=== PATIENT | female | born 1960 | race Caucasian/White ===

== ENCOUNTER 2019-11-11 06:09 | Outpatient (RCR) | payer BC, OTHER ==
[~2019-11-11] VITALS: Ht 160 cm; Wt 170.0 kg
[~2019-11-11 06:09] MED LIST: ALPR0.25 PO; AMLO5TAB4 PO; CALC600T12 PO; CHOL10002 PO; DULO60CA59 PO; HYDR-4342 PO; METO5TAB75 PO; MODA200T39 PO; ONDN4T PO; RT-ALBUINH IH; TELM80TA8 PO
== END 2019-11-11 15:00 | disposition home or self-care (01) ==
LOC: PREOP 06:09
PROVIDERS: ATTEND Surgery
DX: Z01.812 Encounter for preprocedural laboratory examination (principal); K82.8 Other specified diseases of gallbladder; Z20.828 Contact with and (suspected) exposure to other viral communicable diseases
CPT/HCPCS: 87635

== ENCOUNTER 2019-11-13 09:19 | Day surgery (SDC) | payer BC, OTHER ==
[~2019-11-13] VITALS: Ht 160 cm; Wt 125.9 kg
[2019-11-13] VITALS (9 sets, daily range): BP systolic 93–192; BP diastolic 45–100
--- NOTE | 2019-11-13 09:29 | Discharge Inst-Surgical ---
D/C Lap Instructions-KIDO Reconcile Patient Problems Problems Reviewed?: Yes New, Converted, or Re-Newed RX: RX on Chart Follow Up Appt in 2 weeks Activity as tolerated No driving for 24 hours No driving while on pain medications Incentive Spirometry use every 2 hours while awake Regular Diet Symptoms to Report: Fever over 101 degree F, Nausea/Vomiting Infection Signs and Symptoms to report: Increased redness, Foul odor of wound, Increased drainage Bathing instructions: May shower Operative Area Clean/Dry; Keep incision clean/dry If any problems/questions: Contact your physician or go to Emergency Room JOSE J SCHMIDT APRN Nov 13, 2019 09:29
[2019-11-13] MEDS ORDERED: HYDROcodone/APAP 5 MG/325 MG (LORTAB) TAB PO ONE (09:30)
[2019-11-13] MEDS ORDERED: CATHETER FLUSH 10 ML SYR IV PRN (09:30)
[2019-11-13] MEDS ORDERED: morphine INJ 10 MG/ML 1ML (SYR OR VIAL) IVP PRN (09:30)
[2019-11-13] MEDS ORDERED: ACETAMINOPHEN 325 MG TABLET PO PRN (09:30)
[2019-11-13] MEDS ORDERED: HYDR-4227 PO (09:30)
[2019-11-13] MEDS ORDERED: ceFAZolin 2 GM IV Premixed 50 ML IV ONE (09:30)
[2019-11-13] MEDS ORDERED: ONDANSETRON 4 MG/2 ML (SDV) Z0FRAN IVP PRN ×2 (09:30→12:15)
--- NOTE | 2019-11-13 09:31 | Progress Note-Pre Operative ---
Pre-Operative Progress Note H&P Reviewed The H&P was reviewed, patient examined and no changes noted. Date Seen by Provider: Nov 13, 2019 Time Seen by Provider: 09:30 Date H&P Reviewed: Nov 13, 2019 Time H&P Reviewed: 09:25 Pre-Operative Diagnosis: Symptomatic Biliary Dyskinesia JOSE J SCHMIDT APRN Nov 13, 2019 09:31
[2019-11-13] MEDS ORDERED: BUP/EPI 0.5% 1:200,000 (SENSORCAINE) 30 ML VIAL ONE (09:32)
[2019-11-13] MEDS ORDERED: fentaNYL INJECTION 100 MCG/2 ML AMP ONE (09:39)
[2019-11-13] MEDS: LACTATED RINGERS 1,000 ML IV PRN ×2 (09:40→10:30)
--- OUTSIDE RECORDS SUMMARY | 2019-11-13 09:40 | XMS REPORT | Clinical Summary ---
Author Author Admin, Enrique Adamson Organization [employer] Address Unknown Phone Unavailable Allergies, Adverse Reactions, Alerts Allergy Name Reaction Description Start Date Severity Status Pr ovider BYETTA 10 MCG PEN Critical Active Lilia Clemons RN METAMUCIL Critical Active Bertrand Patel DO BACTRIM Critical Active Bertrand Patel DO Conditions or Problems Problem Name Problem Code Onset Date Status Entry Date Provider Comment Standard Description Annotate HEALTH SCREENING V70.0 Resolved Yoli Mercado MD PhD Routine general medical examination at a health care facility HYPERTENSION 401.9 Active Bertrand Patel DO U nspecified essential hypertension SCABIES 133.0 Resolved Yoli Mercado MD PhD Scabies FH DIABETES V18.0 Inactive Yoli Mercado MD PhD Family history of diabetes mellitus SINUSITIS, FRONTAL, ACUTE 461.1 Resolved Yoli Mercado MD PhD Acute frontal sinusitis COUGH 786.2 Resolved Yoli Mercado MD PhD Cough EDEMA LEG 782.3 Resolved Nitza Mullins Scribe Edema SHORTNESS OF BREATH 786.05 Resolved Yoli Mercado MD PhD Shortness of breath RISK OF SLEEP APNEA V12.59 Active Adolfo OSORIO Other personal history of diseases of circulatory system RIB PAIN, RIGHT SIDED 786.50 Resolved Yoli Mercado MD PhD Unspecified chest pain KNEE PAIN, RIGHT 719.46 Resolved Nitza Mullins Scribe Pain in joint involving lower leg Knee pain, left 719.46 Resolved Nitza zaragoza Pain in joint involving lower leg Diabetes, Type 2 250.00 Active Bertrand Patel DO Diabetes mellitus without mention of complication, type II or unspecified type, not stated as uncontrolled Morbid obesity 278.01 Inactive Bertrand Patel DO Morbid obesity Morbid obesity due to excess calories 278.00 Active Lina Maher APRN-C Obesity, unspecified Hyperlipidemia 272.4 Active Bertrand Patel DO Other and unspecified hyperlipidemia Pharyngitis-Acute 462 Inactive Bertrand Patel DO Acute pharyngitis Polyuria 788.42 Resolved Yoli Mercado MD PhD Polyuria Cellulitis, leg, right 682.6 Resolved Colin Deluna MD Cellulitis and abscess of leg, except foot Foreign body, ear 931 Resolved Yoli Mercado MD PhD Foreign body in ear Obstructive sleep apnea 327.23 Active Bertrand Redmond DO Obstructive sleep apnea (adult) (pediatric) Fatigue 780.79 Resolved Ike Deluna MD Other malaise and fatigue Headache 784.0 Resolved Nitza Mullins Scribe Headache Cough 786.2 Resolved Nitza Liuibe Cough SINUSITIS, ACUTE 461.9 Resolved Ike Deluna MD Acute sinusitis, unspecified Fatigue 780.79 Resolved Nitza Patel Other malaise and fatigue Bronchitis acute with bronchospasm 466.0 Resolved 2 Nitza Patel Acute bronchitis Bronchitis acute with bronchospasm 466.0 Resolved Bertrand Patel DO Acute bronchitis Narcolepsy 347.00 Active Bertrand Patel DO Narcolepsy without cataplexy Animal bite 919.8 Resolved Nitza Harpreet Scrib e Other and unspecified superficial injury of other, multiple, and unspecified sites, without mention of infection Mycoplasma infection 041.81 Resolved Abiel ti Harpreet Scrcatye Mycoplasma infection in cond itions classified elsewhere and of unspecified site Amenorrhea, secondary 626.0 Resolved Kri sti Mullins Scribe Absence of menstruation Depression 311 Active Bertrand Patel DO Depressive disorder, not elsewhere classified Left maxillary sinusitis 473.0 Resolved Bertrand Patel DO Chronic maxillary sinusitis Body Mass Index 50.0-59.9 Adult Refinement 2017 Bertrand Patel DO Body Mass Index 50.0-59.9, adult BMI 60-69.9 Active Bertrand Patel DO Body Mass Index 50.0-59.9, adult Wellness exam V70.0 Active Bertrand Patel DO Routine general medical examination at a health care facility URI - viral 465.9 Resolved Lina Mahre BASTING 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-C Acute upper respiratory infections of unspecified site Pharyngitis acute 462 Resolved Lina Maher BASTING 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 -C Acute pharyngitis Abdominal pain, upper 789.09 Active Lina Maher A PRN-C Abdominal pain, other specified site; multiple sites Flank pain, left 789.09 Active Lina Maher BASTING 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-C Abdominal pain, other specified site; multiple sites Morbid obesity due to excess calories 278.00 Resolved Lina Maher BASTING 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-C Obesity, unspecified Other abnormal findings in urine Active 202 Lina Maher BASTING 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-C Generalized colicky abdominal pain 789.07 Active 2 Lina Maher BASTING 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-C Abdominal pain, generalized Nausea 787.02 Active Lina Maher APRN-C Nausea alone Abnormal abdominal imaging 793.6 Active E benjamín Gunnar BARAJAS-C Nonspecific (abnormal) findings on radio logical and other examination of abdominal area, including retroperitoneum Epigastric pain 789.06 Active Lina Maher APRN-C Abdominal pain, epigastric HEALTH SCREENING ICD-V70.0 Inactive Yoli sabillon MD PhD SCABIES ICD-133.0 Inactive Yoli Mercado MD PhD 201 07/14/20 FH DIABETES ICD-V18.0 Inactive Yoli Mercado MD PhD 20 14/02/29 SINUSITIS, FRONTAL, ACUTE ICD-461.1 Inactive Yoli Mercado MD PhD COUGH ICD-786.2 Inactive Yoli Mercado MD PhD 201 09/09/28 EDEMA LEG ICD-782.3 Inactive Adele Feldman MANAGER RECRUITMENT 201 01/01/02 SHORTNESS OF BREATH ICD-786.05 Inactive Yoli Mercado MD PhD RIB PAIN, RIGHT SIDED ICD-786.50 Inactive Yoli Mercado MD PhD KNEE PAIN, RIGHT ICD-719.46 Inactive Adele Esqueda ghn MANAGER RECRUITMENT Knee pain, left ICD-719.46 Inactive Adele Holden hn MANAGER RECRUITMENT Pharyngitis-Acute ICD-462 Inactive Bertrand Redmond DO Polyuria ICD-788.42 Inactive Yoli Mercado MD P hD Cellulitis, leg, right ICD-682.6 Inactive Yuki Deluna MD Foreign body, ear ICD-931 Inactive Yoli salazar MD PhD Fatigue ICD-780.79 Inactive Ike Deluna MD 201 12/01/06 Headache ICD-784.0 Inactive Adele Feldman MANAGER RECRUITMENT 2017 Cough ICD-786.2 Inactive Adele Feldman MANAGER RECRUITMENT 06/04 SINUSITIS, ACUTE ICD-461.9 Inactive Ike lange MD Fatigue ICD-780.79 Inactive Adele Feldman MANAGER RECRUITMENT 2017 Bronchitis acute with bronchospasm ICD-466.0 I nactive Bertrand Patel DO Animal bite ICD-919.8 Inactive Adele Feldman LP N Mycoplasma infection ICD-041.81 Inactive Anit a Feldman MANAGER RECRUITMENT Amenorrhea, secondary ICD-626.0 Inactive Ani ta Feldman MANAGER RECRUITMENT Left maxillary sinusitis ICD-473.0 Inactive Bertrand Patel DO URI - viral ICD-465.9 Inactive Lina Maher BASTING 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 -C Pharyngitis acute ICD-462 Inactive Lina elliott BASTING 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-C Morbid obesity due to excess calories ICD-278.00 Inactive Carla ALBERTO Medication List Medication Instructions Start Date Stop Date Generic Name NDC Status Provider Patient Instruction REGLAN 10 MG ORAL TABLET 0.5-1 tab po TID PRN nausea METOCLOPRAMIDE HCL 92668703745 Active Marissa Parnell MA Active ZOFRAN 4 MG ORAL TABLET 1 tablet by mouth every 6 hour PRN nausea 2 ONDANSETRON HCL 22027113751 Active Adriana Davalos RN Active CYCLOBENZAPRINE HCL 10 MG ORAL TABLET 1 tablet by mout h three times a day as needed for muscle spasm CYCLOBENZAPRINE HCL 69400077012 Ton BAZZI Active HYDROCODONE-ACETAMINOPHEN 7.5-325 MG TABS 1 TAB EVERY 6 HOUR S PRN FOR PAIN HYDROCODONE-ACETAMINOPHEN 47193231175 Active Bretrand Patel DO Active TELMISARTAN 80 MG TABS 1 TABLET PO DAILY FOR BLOOD PRESSURE TELMISARTAN 66349158617 Active Adriana Davalos RN Active MODAFINIL 200 MG TABS 1/2 TABLET PO IN THE AM AND 1/2 TABLET AT NOON MODAFINIL 37188550775 Active Adriana Davalos RN Activ e DULOXETINE HCL 60 MG CPEP 1 CAPSULE PO DAILY DU LOXETINE HCL 51662540069 Active Adriana Davalos RN Active AMLODIPINE 5MG 1 TABLET PO DAILY FOR BLOOD PRESSURE AMLODIPINE BESYLATE 21086511700 Active Adriana Davalos RN Active ALPRAZOLAM 0.5 MG TABS TAKE 1 TABLET BY MOUTH THREE TIMES DAILY 201 02/10/05 ALPRAZOLAM 61354256304 Active Adriana Davalos RN Active SUDAFED 12 HOUR 120 MG ORAL TABLET EXTENDED RELEASE 12 HOUR 1 pill twice daily if for congestion PSEUDOEPHEDRINE HCL 62977272676 Active Silvia Vazquez APRN Active CHERATUSSIN AC 100-10 MG/5ML ORAL SYRUP 5ml po q6hr PRN Cough 20 21/03/15 GUAIFENESIN-CODEINE 31898864297 No Longer Active Silvia Vazquez APRN Active FLUTICASONE PROPIONATE 50 MCG/ACT NASAL SUSPENSION 2 s prays per nostril daily for 2 weeks, then 1 spray each nostril PRN FLUTI CASONE PROPIONATE 81084477687 Active Silvia Vazquez APRN Active EVENING PRIMROSE OIL 1000 MG ORAL CAPSULE 1 capsule once daily EVENING PRIMROSE OIL 59536967924 Active Bertrand Patel DO Active LEVAQUIN 500 MG ORAL TABLET 1 tablet by mouth daily 21/06/28 LEVOFLOXACIN 07633037411 No Longer Active Bertrand Patel DO Active PREDNISONE 20 MG ORAL TABLET Take 3 tabs for 3 days, t hen 2 tabs for 3 days, then 1 tab for 3 days PREDNISONE 15822615376 No Rainer fatou Active Galilea Sell BASTING 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 Active DOXYCYCLINE HYCLATE 100 MG ORAL CAPSULE 1 cap by mouth twice jong ly DOXYCYCLINE HYCLATE 34242377176 No Longer Active Galilea Sell BASTING 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 Active ADDERALL 10 MG ORAL TABLET 1 tab twice daily 2 AMPHETAMINE-DEXTROAMPHETAMINE 71962391266 No Longer Active Nitza Phi llips Scribe Active ZITHROMAX Z-MARTIN 250 MG ORAL TABLET 2 today and then 1 daily for 4 days AZITHROMYCIN 31803901376 No Longer Active Nitza Osman lips Scribe Active BENZONATATE 200 MG ORAL CAPSULE 1 three times a day as neede d for cough BENZONATATE 91359020420 No Longer Active Nitza Osman lips Scribe Active VITAMIN D3 22755 UNIT ORAL CAPSULE 1 pill Week x 4 mo nths for vitamin D deficiency/osteoporosis CHOLECALCIFEROL 71208135448 N o Longer Active Layla Garcia Active BACTROBAN 2 % EXTERNAL CREAM Apply to affected area BID for up to 10 days MUPIROCIN CALCIUM 39840074065 No Longer Active Ike Deluna MD Active CIPRO 500 MG ORAL TABLET 1 tablet by mouth twice daily CIPROFLOXACIN HCL 59052657246 No Longer Active Adriana Bender LPN Active AUGMENTIN 875-125 MG ORAL TABLET 1 po BID x 10 days 18/04/06 AMOXICILLIN-POT CLAVULANATE 58060259535 No Longer Active Adriana Bender LPN Active CYCLOBENZAPRINE HCL 10 MG ORAL TABLET Take 1 tab TID PRN for mus triston pain CYCLOBENZAPRINE HCL 54915337559 No Longer Active Bertrand Patel DO Active TESSALON PERLES 100 MG ORAL CAPSULE 1 tablet by mouth 3 times da juan pablo BENZONATATE 48992090679 No Longer Active Bertrand Patel DO Ac tive NEBULIZER use as directed NEBULIZERS 36709491221 No Longer Active Bertrand Patel DO Active ALBUTEROL SULFATE (2.5 MG/3ML) 0.083% INHALATION NEBUL IZATION SOLUTION one vial per nebulizer every 4-6 hours as needed ALBUTERO L SULFATE 85333443226 No Longer Active Bertrand Patel DO Active SYMBICORT 160-4.5 MCG/ACT INHALATION AEROSOL 2 puffs BID 9 BUDESONIDE-FORMOTEROL FUMARATE 81832196150 No Longer Active Bertrand Patel DO Active PREDNISONE 20 MG ORAL TABLET take 3 tabs daily for 3 d ays, 2 tabs daily for 3 days, 1 tab daily for 3 days, 1/2 tab daily for 3 days 08/02 PREDNISONE 90434516309 No Longer Active Silvia Vazquez APRN Active AZITHROMYCIN 250 MG ORAL TABLET Take 2 tabs po today then 1 tab po daily AZITHROMYCIN 55837664325 No Longer Active Silvia Vazquez APRN Active AUGMENTIN 875-125 MG ORAL TABLET 1 po BID x 10 days 20 19/07/13 AMOXICILLIN-POT CLAVULANATE 56365595477 No Longer Active Adriana Bender LPN Active CHEWABLE CALCIUM 500-200-40 MG-UNT-MCG ORAL TABLET CHEWABLE 1 chew tab bid CALCIUM-VITAMIN D-VITAMIN K 68791393601 Active Silvia gagnon BASTING 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 Active EQ COMPLETE MULTIVIT ADULT 50+ ORAL TABLET 1 tab po bid MULTIPLE VITAMINS-MINERALS 86706899801 Active Silvia Vazquez APRN Active LORTAB 7.5-500 MG ORAL TABLET take one po Q6 hours 201 09/12/01 HYDROCODONE-ACETAMINOPHEN 00851286226 No Longer Active Nirmal Robbins RN Active [facility] MELATONIN 5-10 MG ORAL TABLET EXTENDED RELEASE Jair e one by mouth daily at bedtime MELATONIN-PYRIDOXINE 09284522330 No Longer Acti ve Bertrand Patel DO Active VITAMIN E 200 UNIT ORAL CAPSULE 1 cap po qd VITAM IN E 83587061495 No Longer Active Bertrand Patel DO Active B-12 1000 MCG ORAL CAPSULE 1 tab daily CYANOCOB ALAMIN 10081246725 No Longer Active Bertrand Patel DO Active METFORMIN HCL 500 MG ORAL TABLET 1 bid METFOR MIN HCL 05765525042 No Longer Active Bertrand Patel DO Active FUROSEMIDE 20 MG ORAL TABLET 1 pill by mouth daily if needed for edema FUROSEMIDE 06592027330 No Longer Active Bertrand Patel DO Active PRAVASTATIN SODIUM 20 MG ORAL TABLET 1 tablet by mouth daily at bedtime PRAVASTATIN SODIUM 02564992565 No Longer Active Bertrand Patel DO Active AUGMENTIN 875-125 MG ORAL TABLET 1 pill by mouth twice daily 201 09/10/00 AMOXICILLIN-POT CLAVULANATE 31436515440 No Longer Active Yoli Mercado MD PhD Active LEVAQUIN 500 MG ORAL TABLET 1 pill by mouth daily 2013 LEVOFLOXACIN 75996334739 No Longer Active Yoli Mercado MD PhD Acti ve MICARDIS 80 MG ORAL TABLET 1 tablet daily for blood pressure 07/30 TELMISARTAN 07679276944 Active Adriana Davalos RN Active MICARDIS HCT 80-12.5 MG ORAL TABLET 1 qd TELMISARTAN-HCTZ 29826813695 No Longer Active Bertrand Patel DO Active CINNAMON ALPHA LIPOIC AC CMPLX CAPSULE by mouth twice a day in AM by mouth twice a day in PM ALPHA LIPOIC [id number] CA PS 93402142314 No Longer Active Bertrand Patel DO Active AZITHROMYCIN 500 MG INTRAVENOUS SOLUTION RECONSTITUTED 1 po q da y AZITHROMYCIN 49905263232 No Longer Active Bertrand Patel DO A ctive CYMBALTA 30 MG ORAL CAPSULE DELAYED RELEASE PARTICLES 1 cap by mouth daily DULOXETINE HCL 49662249618 No Longer Active Bertrand marquez DO Active CYMBALTA 60 MG ORAL CAPSULE DELAYED RELEASE PARTICLES 1 cap by mouth daily DULOXETINE HCL 49861914678 Active Adriana Davalos RN Active WELLBUTRIN 75 MG ORAL TABLET 2 times daily BUPR OPION HCL 56463816616 No Longer Active Bertrand Patel DO Active PROAIR HFA 108 (90 Base) MCG/ACT INHALATION AEROSOL SO LUTION take one to two puffs po Q4-6 hour prn cough and shortness of breath ALBUTEROL SULFATE 18731672434 Active Bertrand Patel DO Active AZITHROMYCIN 250 MG ORAL TABLET take 2 po today then take 1 po days 2-5 AZITHROMYCIN 98503823858 No Longer Active Adolfo OSORIO Active PERMETHRIN 5 % EXTERNAL CREAM apply neck to toes tonig ht and then rinse off in morning. repeat at 7 days PERMETHRIN 84415398587 No Longer Active Adolfo OSORIO Active AMOXICILLIN 500 MG ORAL CAPSULE 2 po BID x 10 days 201 07/15/00 AMOXICILLIN 00434764226 No Longer Active Yoli Mercado MD PhD Acti ve INSUPEN ULTRAFIN 31G X 6 MM USE DIRECTED INSULIN PEN NEEDLE 56679674076 No Longer Active Bertrand Patel DO Active TRANSDERM-SCOP (1.5 MG) 1 MG/3DAYS TRANSDERMAL PATCH 7 2 HOUR 1 patch applied behind ear q 3 day SCOPOLAMINE BASE 67760565850 No Lo nger Active Bertrand Patel DO Active MACRODANTIN 100 MG ORAL CAPSULE one p.o. b.i.d. x2 weeks NITROFURANTOIN MACROCRYSTAL 80715731301 No Longer Active Bertrand Patel DO Active MACRODANTIN 100 MG ORAL CAPSULE one p.o. b.i.d. x2 weeks MACRODANTIN 100 MG ORAL CAPSULE 0461005 NITROFURANTOIN MACROCRYSTAL Inactive TRANSDERM-SCOP (1.5 MG) 1 MG/3DAYS TRANSDERMAL PATCH 7 2 HOUR 1 patch applied behind ear q 3 day TRANSDERM-SCOP (1.5 MG) 1 MG/3DAYS TRANSDERMAL PATCH 72 HOUR SCOPOLAMINE BASE Inactive INSUPEN ULTRAFIN 31G X 6 MM USE DIRECTED INSUPEN ULTRAFIN 31G X 6 MM INSULIN PEN NEEDLE Inactive PERMETHRIN 5 % EXTERNAL CREAM apply neck to toes tonig ht and then rinse off in morning. repeat at 7 days PERMETHRIN 5 % EXTER NAL CREAM 139786 PERMETHRIN Inactive WELLBUTRIN 75 MG ORAL TABLET 2 times daily WELLBUTRIN 75 MG ORAL TABLET BUPROPION HCL Inactive CYMBALTA 30 MG ORAL CAPSULE DELAYED RELEASE PARTICLES 1 cap by mouth daily CYMBALTA 30 MG ORAL CAPSULE DELAYED RELE ASE PARTICLES 770879 DULOXETINE HCL Inactive AZITHROMYCIN 500 MG INTRAVENOUS SOLUTION RECONSTITUTED 1 po q da y AZITHROMYCIN 500 MG INTRAVENOUS SOLUTION RECONSTITUTED 93033 851456 AZITHROMYCIN Inactive CINNAMON ALPHA LIPOIC AC CMPLX CAPSULE by mouth twice a day in AM by mouth twice a day in PM CINNAMON ALPHA LIPOIC AC CMPLX CAPSULE ALPHA LIPOIC [id number] CAPS Inactive MICARDIS HCT 80-12.5 MG ORAL TABLET 1 qd 07/30 MICARDIS HCT 80-12.5 MG ORAL TABLET 045889 TELMISARTAN-HCTZ Inactive PRAVASTATIN SODIUM 20 MG ORAL TABLET 1 tablet by mouth daily at bedtime PRAVASTATIN SODIUM 20 MG ORAL TABLET 197706 PRAVASTATIN SODIUM Inactive FUROSEMIDE 20 MG ORAL TABLET 1 pill by mouth daily if needed for edema FUROSEMIDE 20 MG ORAL TABLET 302855 FUROSEMIDE Inactive METFORMIN HCL 500 MG ORAL TABLET 1 bid METFORMIN HCL 500 MG ORAL TABLET 041242 METFORMIN HCL Inactive B-12 1000 MCG ORAL CAPSULE 1 tab daily B -12 1000 MCG ORAL CAPSULE CYANOCOBALAMIN Inactive VITAMIN E 200 UNIT ORAL CAPSULE 1 cap po qd 1 VITAMIN E 200 UNIT ORAL CAPSULE 2807802 VITAMIN E Inactive [facility] MELATONIN 5-10 MG ORAL TABLET EXTENDED RELEASE Jair e one by mouth daily at bedtime [facility] MELATONIN 5-10 M G ORAL TABLET EXTENDED RELEASE MELATONIN-PYRIDOXINE Inactive LORTAB 7.5-500 MG ORAL TABLET take one po Q6 hours 201 09/12/01 LORTAB 7.5-500 MG ORAL TABLET HYDROCODONE-ACETAMINOPHEN Inactive AZITHROMYCIN 250 MG ORAL TABLET Take 2 tabs po today then 1 tab po daily AZITHROMYCIN 250 MG ORAL TABLET 208443 AZITHROMY BERNARDO Inactive SYMBICORT 160-4.5 MCG/ACT INHALATION AEROSOL 2 puffs BID 9 SYMBICORT 160-4.5 MCG/ACT INHALATION AEROSOL 9756438 BUDESONID E-FORMOTEROL FUMARATE Inactive ALBUTEROL SULFATE (2.5 MG/3ML) 0.083% INHALATION NEBUL IZATION SOLUTION one vial per nebulizer every 4-6 hours as needed ALBUTEROL SULFATE (2.5 MG/3ML) 0.083% INHALATION NEBULIZATION SOLUTION 444295 ALBUTER OL SULFATE Inactive NEBULIZER use as directed NEBULIZER NEBULI ZERS Inactive TESSALON PERLES 100 MG ORAL CAPSULE 1 tablet by mouth 3 times da juan pablo TESSALON PERLES 100 MG ORAL CAPSULE 237397 BENZONATATE Inactive CYCLOBENZAPRINE HCL 10 MG ORAL TABLET Take 1 tab TID PRN for mus triston pain CYCLOBENZAPRINE HCL 10 MG ORAL TABLET 249669 CYCLOBENZA ANUJA HCL Inactive AUGMENTIN 875-125 MG ORAL TABLET 1 po BID x 10 days 20 18/04/06 AUGMENTIN 875-125 MG ORAL TABLET AMOXICILLIN-POT CLAVULANATE Inactive BACTROBAN 2 % EXTERNAL CREAM Apply to affected area BID for up to 10 days BACTROBAN 2 % EXTERNAL CREAM MUPIROCIN CA LCIUM Inactive VITAMIN D3 63275 UNIT ORAL CAPSULE 1 pill Week x 4 mo nths for vitamin D deficiency/osteoporosis VITAMIN D3 08352 UNIT ORAL CAPSULE CHOLECALCIFEROL Inactive BENZONATATE 200 MG ORAL CAPSULE 1 three times a day as neede d for cough BENZONATATE 200 MG ORAL CAPSULE 731903 BENZONATA TE Inactive ZITHROMAX Z-MARTIN 250 MG ORAL TABLET 2 today and then 1 daily for 4 days ZITHROMAX Z-MARTIN 250 MG ORAL TABLET 146960 AZITHR OMYCIN Inactive ADDERALL 10 MG ORAL TABLET 1 tab twice daily 2 ADDERALL 10 MG ORAL TABLET 405850 AMPHETAMINE-DEXTROAMPHETAMINE Inactive LEVAQUIN 500 MG ORAL TABLET 1 tablet by mouth daily 21/06/28 LEVAQUIN 500 MG ORAL TABLET 485436 LEVOFLOXACIN Inactive AMOXICILLIN 500 MG ORAL CAPSULE 2 po BID x 10 days 201 07/15/00 AMOXICILLIN 500 MG ORAL CAPSULE 499742 AMOXICILLIN Inactive AZITHROMYCIN 250 MG ORAL TABLET take 2 po today then take 1 po days 2-5 AZITHROMYCIN 250 MG ORAL TABLET 574637 AZITHROMY BERNARDO Inactive LEVAQUIN 500 MG ORAL TABLET 1 pill by mouth daily 2013 LEVAQUIN 500 MG ORAL TABLET 682062 LEVOFLOXACIN Inactive AUGMENTIN 875-125 MG ORAL TABLET 1 pill by mouth twice daily 201 09/10/00 AUGMENTIN 875-125 MG ORAL TABLET AMOXICILLIN-POT CLAVULANATE Inactive AUGMENTIN 875-125 MG ORAL TABLET 1 po BID x 10 days 20 19/07/13 AUGMENTIN 875-125 MG ORAL TABLET AMOXICILLIN-POT CLAVULANATE Inactive PREDNISONE 20 MG ORAL TABLET take 3 tabs daily for 3 d ays, 2 tabs daily for 3 days, 1 tab daily for 3 days, 1/2 tab daily for 3 days 08/02 PREDNISONE 20 MG ORAL TABLET 942428 PREDNISONE Inactive CIPRO 500 MG ORAL TABLET 1 tablet by mouth twice daily CIPRO 500 MG ORAL TABLET 592122 CIPROFLOXACIN HCL Inactive DOXYCYCLINE HYCLATE 100 MG ORAL CAPSULE 1 cap by mouth twice jong ly DOXYCYCLINE HYCLATE 100 MG ORAL CAPSULE 9208499 DOXYCYCL INE HYCLATE Inactive PREDNISONE 20 MG ORAL TABLET Take 3 tabs for 3 days, t hen 2 tabs for 3 days, then 1 tab for 3 days PREDNISONE 20 MG ORAL TABLET 312 615 PREDNISONE Inactive CHERATUSSIN AC 100-10 MG/5ML ORAL SYRUP 5ml po q6hr PRN Cough 20 21/03/15 CHERATUSSIN AC 100-10 MG/5ML ORAL SYRUP 519422 GUAIFENE SIN-CODEINE Inactive Immunizations Vaccine Administration Date Value Standard Kings cription influenza immunization (Flu Vax) has been administered 08/25 Done according to patient influenza virus vaccine, unspecified for mulation Vital Signs Date Name Value Unit Range Description blood pressure, diastolic, repeated by physician 85 BP [place] blood pressure, diastolic 85 mm[Hg] BP [place] blood pressure, systolic, repeated by physician 148 BP sys blood pressure, systolic 148 mm[Hg] BP sys height E&M 65 [in_us] Bdy height pulse rate 89 /min Heart rate temperature E&M 97.8 [degF] Body temp erature weight E&M 368.31 [lb_av] Weight Measure d blood pressure, diastolic, second observation 88 m m[Hg] BP [place]ick blood pressure, diastolic, repeated by physician 84 BP [place]ick blood pressure, diastolic 84 mm[Hg] BP f[place]ick blood pressure, systolic, second observation 184 mm [Hg] BP sys blood pressure, systolic, repeated by physician 159 BP sys blood pressure, systolic 159 mm[Hg] BP sys pulse rate 88 /min Heart rate temperature E&M 99.7 [degF] Body temp erature weight E&M 363 [lb_av] Weight Measure d Diagnostic Results Date Name Value Unit Range Description Lab Report: CBC W/DIFF - Hematology hemoglobin, blood 11.7 g/dL 12.0-16.0 hematocrit, blood 38.4 % 37.0-47.0 mean corpuscular volume, RBC 88 fL 80-97 mean corpuscular hemoglobin, RBC 26.8 pg 27. 0-31.2 mean corpuscular hemoglobin concentration, RBC 30.5 G/DL % 31.8-35.4 red blood cell distribution width 16.3 % 11 .6-14.8 platelet count 288 10^3/MM^3 10*3/mm3 299-908 7947/03/25 erythrocyte (RBC) count 4.37 10^6/MM^3 10*6/mm3 3.80-5.8 0 lymphocytes as percent of blood leukocytes 23.4 % 20.5-51.1 monocytes as percent of blood leukocytes 9.5 % 1.7-9.3 neutrophils as percent of blood leukocytes 61.2 % 42.2-75.2 leukocyte count, blood 8.8 10^3/MM^3 10*3/mm3 4.6-10.2 Lab Report: Comp. Metabolic Panel, [facility] - Chemistry calcium, serum 8.2 mg/dL 8.5-10.1 bilirubin, serum, total 0.40 mg/dL 0.00-1.00 sodium, serum 140 mmol/L 595-089 2503/03/25 carbon dioxide, venous blood 33.2 mmol/L 21.0-32 .0 potassium, serum 4.7 mmol/L 3.5-5.2 chloride, serum 104 mmol/L 98-107 blood glucose 93 mg/dL 65-95 urea nitrogen, blood 16 mg/dL 7-18 creatinine, serum 0.62 mg/dL 0.60-1.30 Estimated Glomerular Filtration Rate (calc) 106 (?) mL/min/1.73m2 = OR > 60 mL/min alanine aminotransferase (SGPT), serum 13 U/L 12-78 aspartate aminotransferase (SGOT), serum 19 U/L 19-43 Lab Report: Comp. Metabolic Panel, [facility] - Lab Alkaline phosphatase 91 50-136 Lab Report: UADIP W/MICRO, AUTO - Chemis try protein, total urine random Negative mg/dL Negative RBC, urine, dipstick Negative Negative Lab Report: UADIP W/MICRO, AUTO - Urinal ysis urobilinogen, urine, semiquantitative (dipstick) 0.2 E .U./dL Normal leukocyte esterase, urine, by dipstick Negative Negative nitrite, urine, semiquantitative Negative Neg ative glucose, urine, semiquantitative Negative Neg ative ketones, urine, by test strip Negative Negati ve bilirubin, urine Negative Negative urine color Yellow Colorless;Lightyellow;St raw;Yellow appearance, urine Clear Clear specific gravity, urine 1.025 1.000-1.030 pH, urine, semiquantitative 7.0 5.0-8.5 Office Visit: possible gallbladder sympt oms - Chemistry RBC, urine, dipstick trace Office Visit: possible gallbladder sympt oms - Urinalysis nitrite, urine, semiquantitative negative urobilinogen, urine, semiquantitative (dipstick) 0.2 leukocyte esterase, urine, by dipstick negative appearance, urine clear urine color yellow specific gravity, urine 1.015 pH, urine, semiquantitative 6.5 protein, urine, semiquantitative (dipstick) negative glucose, urine, semiquantitative negative ketones, urine, by test strip negative bilirubin, urine negative Office Visit: S/T, Fever, Cough - Microb iology Strep Screen QC Result (CLIA Waived) negative Strep Screen Lot Number (CLIA Waived) [id number] Strep Screen Exp Date (CLIA Waived) 05/02/2020 Encounters Code Encounter Date Provider Facility CPT-[id number] Level 3 Est. Patient 14:45:47 CDT iLna elliott BASTING 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-C [id number] Vst-Est Level III 16:58:04 CDT Me nae Vazquez [facility] [place]-[address] [id number] Vst-Est Level IV 14:46:36 KINDER TEACHER Foster Patel [facility] CPT-27453 Level 3 Est. Patient 12:37:30 KINDER TEACHER Galilea Se [facility] CPT-84064 Level 3 Est. Patient 11:40:23 CDT Bertrand marquez [facility] CPT-04955 Level 4 Est. Patient 15:33:35 KINDER TEACHER Bertrand marquez [facility] CPT-19735 Level 4 Est. Patient 12:31:54 CDT Bertrand marquez [facility]-04796 Level 3 Est. Patient 11:27:00 KINDER TEACHER Ike Deluna MD [facility] CPT-86691 Level 3 Est. Patient 08:50:57 KINDER TEACHER Silvia Are [facility] CPT-00972 Level 3 Est. Patient 10:04:13 CDT Bertrand marquez [facility] CPT-94458 Level 4 Est. Patient 16:02:10 KINDER TEACHER Silvia Are [facility] CPT-37318 Level 3 Est. Patient 13:04:54 KINDER TEACHER Silvia Are [facility]-08051 Level 3 Est. Patient 12:56:37 CDT Bertrand marquez [facility] CPT-80149 Level 3 Est. Patient 19:12:03 CDT Yoli tolbert MD PhD [facility]-24049 Level 3 Est. Patient 14:36:01 CDT Yoli tolbert MD PhD [facility]-18964 Level 2 Est. Patient 08:00:22 CDT Jcarlos dc MD [facility]-10671 Level 3 Est. Patient 19:06:55 CDT Bertrand Jacklyn marquez [facility] CPT-34486 Level 3 Est. Patient 10:08:23 KINDER TEACHER Bertrand Jacklyn Lindsay jimmy [facility] CPT-04500 Level 3 Est. Patient 16:37:54 KINDER TEACHER Bertrand Jacklyn Lindsay jimmy [facility] CPT-84281 Level 3 Est. Patient 11:31:59 KINDER TEACHER Bertrand Jacklyn marquez [facility] CPT-38893 Level 3 Est. Patient 10:20:08 CDT Adolfo villasenor [facility] CPT-43951 Level 3 Est. Patient 13:45:20 CDT Sanket buckley [facility] CPT-76939 Level 3 Est. Patient 12:51:06 CDT Adolfo villasenor [facility] CPT-26852 Level 3 Est. Patient 11:22:51 KINDER TEACHER Yoli tolbert MD PhD [facility] CPT-76414 Level 3 Est. Patient 13:33:19 CDT Bertrand marquez [facility] Procedures Code Procedure Name Date Entry Date Standard Desc ription CPT-15538 Sono abd valle iinc RUQ LUQ ascites search or pylorus - XRAY USE ONLY 09:11:06 CDT CPT-22692 Venipuncture Draw Fee 16:30:28 CDT CPT-UZ6052C (4274F) Influenza immunization administe red or previously received 15:55:57 CDT CPT-54961 Wound Culture - LAB USE ONLY 15:45:25 CDT 2 CPT-65999 Venipuncture Draw Fee 10:23:01 CDT CPT-J0696 Rocephin 1000 mg (Ceftriaxone) 16:20:30 KINDER TEACHER CPT-31290 Abx/Therapy Injection 16:20:29 KINDER TEACHER CPT-J0696 Rocephin 1gm Inj Solr 15:51:59 KINDER TEACHER CPT-48869 Chest 2V Frontal and Lat 15:20:28 KINDER TEACHER 07/22 CPT-09998 Breathing Tx 14:51:55 KINDER TEACHER CPT-95691 Breathing Tx 09:57:16 KINDER TEACHER CPT-67375 Knee comp 4/> V 11:58:06 KINDER TEACHER
--- OUTSIDE RECORDS SUMMARY | 2019-11-13 09:40 | XMS REPORT ---
Author Author [facility] Medic al StaffCAMILO Organization [facility] Address [address] [address] [place] [id number] Phone [phone] Care Team Providers Care Department Secretary Name Role Phone RC MARQUEZ DO PP [phone] Summary purpose CCDA Sent to [facility] Chief Complaint and Reason for Visit No authorized Reason for Visit (Admitting Diagnosis) is available for this visit . Problem list No authorized problems tracked for continuity of care are available for this vis it. Encounters No authorized problems tracked for encounter diagnoses are available for this vi sit. Medications No medications recorded for this patient visit Allergies, adverse reactions, alerts No allergy information is available for this patient. Immunizations No immunizations recorded for this patient visit Relevant diagnostic tests and/or laboratory data No authorized results are available for this patient visit History of procedures No procedures recorded for this patient visit. Functional status No functional or cognitive status observations are available for this visit. Vital signs No authorized vital signs are available for this visit. Social history No Social History or smoking status observations were recorded for this visit. ( Unknown if ever smoked.) Treatment Plan No treatment plan text is available for this visit. Hospital discharge instructions No discharge instruction text is available for this visit.
--- OUTSIDE RECORDS SUMMARY | 2019-11-13 09:40 | XMS REPORT | Clinical Summary ---
Author Author Admin, Enrique Adamson Organization [facility] [employer] Address Unknown Phone Unavailable Allergies, Adverse Reactions, [...] Polyuria Cellulitis, leg, right 682.6 Resolved Colin Dleuna MD Cellulitis and abscess of leg, except [...] facility URI - viral 465.9 Resolved Lina Maher CORE MEASURES ABSTRACTOR-C Acute upper respiratory infections of unspecified site Pharyngitis acute 462 Resolved Lina Maher CORE MEASURES ABSTRACTOR -C Acute pharyngitis Abdominal pain, upper 789.09 Active Lina Maher A PRN-C Abdominal pain, other specified site; multiple sites Flank pain, left 789.09 Active Lina Maher CORE MEASURES ABSTRACTOR-C Abdominal pain, other specified site; multiple sites Morbid obesity due to excess calories 278.00 Resolved Lina Maher CORE MEASURES ABSTRACTOR-C Obesity, unspecified Other abnormal findings in urine Active 202 Lina Maher CORE MEASURES ABSTRACTOR-C Generalized colicky abdominal pain 789.07 Active 2 Lina Maher CORE MEASURES ABSTRACTOR-C Abdominal pain, generalized Nausea 787.02 Active Lina [...] 09/09/28 EDEMA LEG ICD-782.3 Inactive Adele Feldman COMPOSING 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 201 01/01/02 SHORTNESS OF BREATH ICD-786.05 Inactive Yoli Mercado MD PhD RIB PAIN, RIGHT SIDED ICD-786.50 Inactive Yoli Mercado MD PhD KNEE PAIN, RIGHT ICD-719.46 Inactive Adele Esqueda ghn COMPOSING 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 Knee pain, left ICD-719.46 Inactive Adele Holden hn COMPOSING 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 Pharyngitis-Acute ICD-462 Inactive Bertrand Redmond DO Polyuria ICD-788.42 Inactive Yoli Mercado MD P hD Cellulitis, leg, right ICD-682.6 Inactive Yuki Deluna MD Foreign body, ear ICD-931 Inactive Yoli salazar MD PhD Fatigue ICD-780.79 Inactive Ike Deluna MD 201 12/01/06 Headache ICD-784.0 Inactive Adele Feldman COMPOSING 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 2017 Cough ICD-786.2 Inactive Adele Feldman COMPOSING 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 06/04 SINUSITIS, ACUTE ICD-461.9 Inactive Ike lange MD Fatigue ICD-780.79 Inactive Adele Feldman COMPOSING 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 2017 Bronchitis acute with bronchospasm ICD-466.0 I nactive Bertrand Patel DO Animal bite ICD-919.8 Inactive Adele Feldman LP N Mycoplasma infection ICD-041.81 Inactive Anit a Feldman COMPOSING 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 Amenorrhea, secondary ICD-626.0 Inactive Ani ta Feldman COMPOSING 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 Left maxillary sinusitis ICD-473.0 Inactive Bertrand Patel DO URI - viral ICD-465.9 Inactive Lina Maher CORE MEASURES ABSTRACTOR -C Pharyngitis acute ICD-462 Inactive Lina elliott CORE MEASURES ABSTRACTOR-C Morbid obesity due to excess calories ICD-278.00 Inactive Carla ALBERTO Medication List Medication Instructions Start Date Stop Date Generic Name NDC Status Provider Patient Instruction REGLAN 10 MG ORAL TABLET 0.5-1 tab po TID PRN nausea METOCLOPRAMIDE HCL 15181909531 Active Marissa Parnell MA Active ZOFRAN 4 MG ORAL TABLET 1 tablet by mouth every 6 hour PRN nausea 2 ONDANSETRON HCL 38225548011 Active Adriana Davalos RN Active CYCLOBENZAPRINE HCL 10 MG ORAL TABLET 1 tablet by mout h three times a day as needed for muscle spasm CYCLOBENZAPRINE HCL 83655826851 Ton BAZZI Active HYDROCODONE-ACETAMINOPHEN 7.5-325 MG TABS 1 TAB EVERY 6 HOUR S PRN FOR PAIN HYDROCODONE-ACETAMINOPHEN 37816433197 Active Bertrand Patel DO Active TELMISARTAN 80 MG TABS 1 TABLET PO DAILY FOR BLOOD PRESSURE TELMISARTAN 97522740685 Active Adriana Davalos RN Active MODAFINIL 200 MG TABS 1/2 TABLET PO IN THE AM AND 1/2 TABLET AT NOON MODAFINIL 97814669998 Active Adriana Davalos RN Activ e DULOXETINE HCL 60 MG CPEP 1 CAPSULE PO DAILY DU LOXETINE HCL 76351850117 Active Adriana Davalos RN Active AMLODIPINE 5MG 1 TABLET PO DAILY FOR BLOOD PRESSURE AMLODIPINE BESYLATE 92525513548 Active Adriana Davalos RN Active ALPRAZOLAM 0.5 MG TABS TAKE 1 TABLET BY MOUTH THREE TIMES DAILY 201 02/10/05 ALPRAZOLAM 15616906313 Active Adriana Davalos RN Active SUDAFED 12 HOUR 120 MG ORAL TABLET EXTENDED RELEASE 12 HOUR 1 pill twice daily if for congestion PSEUDOEPHEDRINE HCL 38977561431 Active Silvia Vazquez APRN Active CHERATUSSIN AC 100-10 MG/5ML ORAL SYRUP 5ml po q6hr PRN Cough 20 21/03/15 GUAIFENESIN-CODEINE 15031323597 No Longer Active Silvia Vazquez APRN Active FLUTICASONE PROPIONATE 50 MCG/ACT NASAL SUSPENSION 2 s prays per nostril daily for 2 weeks, then 1 spray each nostril PRN FLUTI CASONE PROPIONATE 63121945769 Active Silvia Vazquez APRN Active EVENING PRIMROSE OIL 1000 MG ORAL CAPSULE 1 capsule once daily EVENING PRIMROSE OIL 02092706721 Active Bertrand Patel DO Active LEVAQUIN 500 MG ORAL TABLET 1 tablet by mouth daily 21/06/28 LEVOFLOXACIN 82776083504 No Longer Active Bertrand Patel DO Active PREDNISONE 20 MG ORAL TABLET Take 3 tabs for 3 days, t hen 2 tabs for 3 days, then 1 tab for 3 days PREDNISONE 68648114001 No Rainer fatou Active Galilea Sell CORE MEASURES ABSTRACTOR Active DOXYCYCLINE HYCLATE 100 MG ORAL CAPSULE 1 cap by mouth twice jong ly DOXYCYCLINE HYCLATE 84119130118 No Longer Active Galilea Sell CORE MEASURES ABSTRACTOR Active ADDERALL 10 MG ORAL TABLET 1 tab twice daily 2 AMPHETAMINE-DEXTROAMPHETAMINE 47052248056 No Longer Active Nitza Phi llips Scribe Active ZITHROMAX Z-MARTIN 250 MG ORAL TABLET 2 today and then 1 daily for 4 days AZITHROMYCIN 15035233803 No Longer Active Nitza Osman lips Scribe Active BENZONATATE 200 MG ORAL CAPSULE 1 three times a day as neede d for cough BENZONATATE 07491016099 No Longer Active Nitza Osman lips Scribe Active VITAMIN D3 43835 UNIT ORAL CAPSULE 1 pill Week x 4 mo nths for vitamin D deficiency/osteoporosis CHOLECALCIFEROL 99138375395 N o Longer Active Layla Garcia Active BACTROBAN 2 % EXTERNAL CREAM Apply to affected area BID for up to 10 days MUPIROCIN CALCIUM 70893613561 No Longer Active Ike Deluna MD Active CIPRO 500 MG ORAL TABLET 1 tablet by mouth twice daily CIPROFLOXACIN HCL 02234304371 No Longer Active Adriana Bender LPN Active AUGMENTIN 875-125 MG ORAL TABLET 1 po BID x 10 days 18/04/06 AMOXICILLIN-POT CLAVULANATE 15502600334 No Longer Active Adriana Bender LPN Active CYCLOBENZAPRINE HCL 10 MG ORAL TABLET Take 1 tab TID PRN for mus triston pain CYCLOBENZAPRINE HCL 73255961546 No Longer Active Bertrand Patel DO Active TESSALON PERLES 100 MG ORAL CAPSULE 1 tablet by mouth 3 times da juan pablo BENZONATATE 08687480940 No Longer Active Bertrand Patel DO Ac tive NEBULIZER use as directed NEBULIZERS 29109567846 No Longer Active Bertrand Patel DO Active ALBUTEROL SULFATE (2.5 MG/3ML) 0.083% INHALATION NEBUL IZATION SOLUTION one vial per nebulizer every 4-6 hours as needed ALBUTERO L SULFATE 00755020174 No Longer Active Bertrand Patel DO Active SYMBICORT 160-4.5 MCG/ACT INHALATION AEROSOL 2 puffs BID 9 BUDESONIDE-FORMOTEROL FUMARATE 89517849329 No Longer Active Bertrand Patel DO Active PREDNISONE 20 MG ORAL TABLET take 3 tabs daily for 3 d ays, 2 tabs daily for 3 days, 1 tab daily for 3 days, 1/2 tab daily for 3 days 08/02 PREDNISONE 65728839098 No Longer Active Silvia Vazquez APRN Active AZITHROMYCIN 250 MG ORAL TABLET Take 2 tabs po today then 1 tab po daily AZITHROMYCIN 59592188005 No Longer Active Silvia Vazquez APRN Active AUGMENTIN 875-125 MG ORAL TABLET 1 po BID x 10 days 20 19/07/13 AMOXICILLIN-POT CLAVULANATE 85689801291 No Longer Active Adriana Bender LPN Active CHEWABLE CALCIUM 500-200-40 MG-UNT-MCG ORAL TABLET CHEWABLE 1 chew tab bid CALCIUM-VITAMIN D-VITAMIN K 71095148758 Active Silvia gagnon CORE MEASURES ABSTRACTOR Active EQ COMPLETE MULTIVIT ADULT 50+ ORAL TABLET 1 tab po bid MULTIPLE VITAMINS-MINERALS 08629713071 Active Silvia Vazquez APRN Active LORTAB 7.5-500 MG ORAL TABLET take one po Q6 hours 201 09/12/01 HYDROCODONE-ACETAMINOPHEN 24393655182 No Longer Active Nirmal Robbins RN Active [facility] MELATONIN 5-10 MG ORAL TABLET EXTENDED RELEASE Jair e one by mouth daily at bedtime MELATONIN-PYRIDOXINE 64925739392 No Longer Acti ve Bertrand Patel DO Active VITAMIN E 200 UNIT ORAL CAPSULE 1 cap po qd VITAM IN E 73518445669 No Longer Active Bertrand Patel DO Active B-12 1000 MCG ORAL CAPSULE 1 tab daily CYANOCOB ALAMIN 91548483551 No Longer Active Bertrand Patel DO Active METFORMIN HCL 500 MG ORAL TABLET 1 bid METFOR MIN HCL 39375530170 No Longer Active Bertrand Patel DO Active FUROSEMIDE 20 MG ORAL TABLET 1 pill by mouth daily if needed for edema FUROSEMIDE 63107799635 No Longer Active Bertrand Patel DO Active PRAVASTATIN SODIUM 20 MG ORAL TABLET 1 tablet by mouth daily at bedtime PRAVASTATIN SODIUM 41144546314 No Longer Active Bertrand Patel DO Active AUGMENTIN 875-125 MG ORAL TABLET 1 pill by mouth twice daily 201 09/10/00 AMOXICILLIN-POT CLAVULANATE 62882549015 No Longer Active Yoli Mercado MD PhD Active LEVAQUIN 500 MG ORAL TABLET 1 pill by mouth daily 2013 LEVOFLOXACIN 94311404759 No Longer Active Yoli Mercado MD PhD Acti ve MICARDIS 80 MG ORAL TABLET 1 tablet daily for blood pressure 07/30 TELMISARTAN 19855741671 Active Adriana Davalos RN Active MICARDIS HCT 80-12.5 MG ORAL TABLET 1 qd TELMISARTAN-HCTZ 59679897150 No Longer Active Bertrand Patel DO Active CINNAMON ALPHA LIPOIC AC CMPLX CAPSULE by mouth twice a day in AM by mouth twice a day in PM ALPHA LIPOIC [id number] CA PS 73124866043 No Longer Active Bertrand Patel DO Active AZITHROMYCIN 500 MG INTRAVENOUS SOLUTION RECONSTITUTED 1 po q da y AZITHROMYCIN 25448169128 No Longer Active Bertrand Patel DO A ctive CYMBALTA 30 MG ORAL CAPSULE DELAYED RELEASE PARTICLES 1 cap by mouth daily DULOXETINE HCL 57720086357 No Longer Active Bertrand marquez DO Active CYMBALTA 60 MG ORAL CAPSULE DELAYED RELEASE PARTICLES 1 cap by mouth daily DULOXETINE HCL 93096739722 Active Adriana Davalos RN Active WELLBUTRIN 75 MG ORAL TABLET 2 times daily BUPR OPION HCL 76312991851 No Longer Active Bertrand Patel DO Active PROAIR HFA 108 (90 Base) MCG/ACT INHALATION AEROSOL SO LUTION take one to two puffs po Q4-6 hour prn cough and shortness of breath ALBUTEROL SULFATE 53506960941 Active Bertrand Patel DO Active AZITHROMYCIN 250 MG ORAL TABLET take 2 po today then take 1 po days 2-5 AZITHROMYCIN 98117356142 No Longer Active Adolfo OSORIO Active PERMETHRIN 5 % EXTERNAL CREAM apply neck to toes tonig ht and then rinse off in morning. repeat at 7 days PERMETHRIN 02601262228 No Longer Active Adolfo OSORIO Active AMOXICILLIN 500 MG ORAL CAPSULE 2 po BID x 10 days 201 07/15/00 AMOXICILLIN 12694248123 No Longer Active Yoli Mercado MD PhD Acti ve INSUPEN ULTRAFIN 31G X 6 MM USE DIRECTED INSULIN PEN NEEDLE 27996982043 No Longer Active Bertrand Patel DO Active TRANSDERM-SCOP (1.5 MG) 1 MG/3DAYS TRANSDERMAL PATCH 7 2 HOUR 1 patch applied behind ear q 3 day SCOPOLAMINE BASE 31158195228 No Lo nger Active Bertrand Patel DO Active MACRODANTIN 100 MG ORAL CAPSULE one p.o. b.i.d. x2 weeks NITROFURANTOIN MACROCRYSTAL 21075794382 No Longer Active Bertrand Patel DO Active MACRODANTIN 100 MG ORAL CAPSULE one p.o. b.i.d. x2 weeks MACRODANTIN 100 MG ORAL CAPSULE 8492113 NITROFURANTOIN MACROCRYSTAL Inactive TRANSDERM-SCOP (1.5 MG) 1 [...] days PERMETHRIN 5 % EXTER NAL CREAM 248288 PERMETHRIN Inactive WELLBUTRIN 75 MG ORAL TABLET 2 times daily WELLBUTRIN 75 MG ORAL TABLET BUPROPION HCL Inactive CYMBALTA 30 MG ORAL CAPSULE DELAYED RELEASE PARTICLES 1 cap by mouth daily CYMBALTA 30 MG ORAL CAPSULE DELAYED RELE ASE PARTICLES 030386 DULOXETINE HCL Inactive AZITHROMYCIN 500 MG INTRAVENOUS SOLUTION RECONSTITUTED 1 po q da y AZITHROMYCIN 500 MG INTRAVENOUS SOLUTION RECONSTITUTED 50632 815685 AZITHROMYCIN Inactive CINNAMON ALPHA LIPOIC AC CMPLX CAPSULE by mouth twice a day in AM by mouth twice a day in PM CINNAMON ALPHA LIPOIC AC CMPLX CAPSULE ALPHA LIPOIC [id number] CAPS Inactive MICARDIS HCT 80-12.5 MG ORAL TABLET 1 qd 07/30 MICARDIS HCT 80-12.5 MG ORAL TABLET 971134 TELMISARTAN-HCTZ Inactive PRAVASTATIN SODIUM 20 MG ORAL TABLET 1 tablet by mouth daily at bedtime PRAVASTATIN SODIUM 20 MG ORAL TABLET 904651 PRAVASTATIN SODIUM Inactive FUROSEMIDE 20 MG ORAL TABLET 1 pill by mouth daily if needed for edema FUROSEMIDE 20 MG ORAL TABLET 432185 FUROSEMIDE Inactive METFORMIN HCL 500 MG ORAL TABLET 1 bid METFORMIN HCL 500 MG ORAL TABLET 728168 METFORMIN HCL Inactive B-12 1000 MCG ORAL CAPSULE 1 tab daily B -12 1000 MCG ORAL CAPSULE CYANOCOBALAMIN Inactive VITAMIN E 200 UNIT ORAL CAPSULE 1 cap po qd 1 VITAMIN E 200 UNIT ORAL CAPSULE 0509687 VITAMIN E Inactive [facility] MELATONIN 5-10 MG [...] po daily AZITHROMYCIN 250 MG ORAL TABLET 153647 AZITHROMY BERNARDO Inactive SYMBICORT 160-4.5 MCG/ACT INHALATION AEROSOL 2 puffs BID 9 SYMBICORT 160-4.5 MCG/ACT INHALATION AEROSOL 6284332 BUDESONID E-FORMOTEROL FUMARATE Inactive ALBUTEROL SULFATE (2.5 MG/3ML) 0.083% INHALATION NEBUL IZATION SOLUTION one vial per nebulizer every 4-6 hours as needed ALBUTEROL SULFATE (2.5 MG/3ML) 0.083% INHALATION NEBULIZATION SOLUTION 236354 ALBUTER OL SULFATE Inactive NEBULIZER use as directed NEBULIZER NEBULI ZERS Inactive TESSALON PERLES 100 MG ORAL CAPSULE 1 tablet by mouth 3 times da juan pablo TESSALON PERLES 100 MG ORAL CAPSULE 286094 BENZONATATE Inactive CYCLOBENZAPRINE HCL 10 MG ORAL TABLET Take 1 tab TID PRN for mus triston pain CYCLOBENZAPRINE HCL 10 MG ORAL TABLET 055504 CYCLOBENZA ANUJA HCL Inactive AUGMENTIN 875-125 MG ORAL TABLET 1 po BID x 10 days 20 18/04/06 AUGMENTIN 875-125 MG ORAL TABLET AMOXICILLIN-POT CLAVULANATE Inactive BACTROBAN 2 % EXTERNAL CREAM Apply to affected area BID for up to 10 days BACTROBAN 2 % EXTERNAL CREAM MUPIROCIN CA LCIUM Inactive VITAMIN D3 37660 UNIT ORAL CAPSULE 1 pill Week x 4 mo nths for vitamin D deficiency/osteoporosis VITAMIN D3 76618 UNIT ORAL CAPSULE CHOLECALCIFEROL Inactive BENZONATATE 200 MG ORAL CAPSULE 1 three times a day as neede d for cough BENZONATATE 200 MG ORAL CAPSULE 049762 BENZONATA TE Inactive ZITHROMAX Z-MARTIN 250 MG ORAL TABLET 2 today and then 1 daily for 4 days ZITHROMAX Z-MARTIN 250 MG ORAL TABLET 701577 AZITHR OMYCIN Inactive ADDERALL 10 MG ORAL TABLET 1 tab twice daily 2 ADDERALL 10 MG ORAL TABLET 011626 AMPHETAMINE-DEXTROAMPHETAMINE Inactive LEVAQUIN 500 MG ORAL TABLET 1 tablet by mouth daily 21/06/28 LEVAQUIN 500 MG ORAL TABLET 397135 LEVOFLOXACIN Inactive AMOXICILLIN 500 MG ORAL CAPSULE 2 po BID x 10 days 201 07/15/00 AMOXICILLIN 500 MG ORAL CAPSULE 359255 AMOXICILLIN Inactive AZITHROMYCIN 250 MG ORAL TABLET take 2 po today then take 1 po days 2-5 AZITHROMYCIN 250 MG ORAL TABLET 768864 AZITHROMY BERNARDO Inactive LEVAQUIN 500 MG ORAL TABLET 1 pill by mouth daily 2013 LEVAQUIN 500 MG ORAL TABLET 938857 LEVOFLOXACIN Inactive AUGMENTIN 875-125 MG ORAL TABLET [...] days 08/02 PREDNISONE 20 MG ORAL TABLET 296250 PREDNISONE Inactive CIPRO 500 MG ORAL TABLET 1 tablet by mouth twice daily CIPRO 500 MG ORAL TABLET 375913 CIPROFLOXACIN HCL Inactive DOXYCYCLINE HYCLATE 100 MG ORAL CAPSULE 1 cap by mouth twice jong ly DOXYCYCLINE HYCLATE 100 MG ORAL CAPSULE 6575338 DOXYCYCL INE HYCLATE Inactive PREDNISONE 20 MG ORAL TABLET Take 3 tabs for 3 days, t hen 2 tabs for 3 days, then 1 tab for 3 days PREDNISONE 20 MG ORAL TABLET 312 615 PREDNISONE Inactive CHERATUSSIN AC 100-10 MG/5ML ORAL SYRUP 5ml po q6hr PRN Cough 20 21/03/15 CHERATUSSIN AC 100-10 MG/5ML ORAL SYRUP 996187 GUAIFENE SIN-CODEINE Inactive Immunizations Vaccine Administration Date [...] Description Lab Report: CBC W/DIFF - Hematology leukocyte count, blood 8.8 10^3/MM^3 10*3/mm3 4.6-10.2 neutrophils as percent of blood leukocytes 61.2 % 42.2-75.2 monocytes as percent of blood leukocytes 9.5 % 1.7-9.3 lymphocytes as percent of blood leukocytes 23.4 % 20.5-51.1 erythrocyte (RBC) count 4.37 10^6/MM^3 10*6/mm3 3.80-5.8 0 hemoglobin, blood 11.7 g/dL 12.0-16.0 hematocrit, blood 38.4 % 37.0-47.0 mean corpuscular volume, RBC 88 fL 80-97 mean corpuscular hemoglobin, RBC 26.8 pg 27. 0-31.2 mean corpuscular hemoglobin concentration, RBC 30.5 G/DL % 31.8-35.4 red blood cell distribution width 16.3 % 11 .6-14.8 platelet count 288 10^3/MM^3 10*3/mm3 142-424 Lab Report: Comp. Metabolic Panel, [facility] - Chemistry sodium, serum 140 mmol/L 770-938 1121/03/25 carbon dioxide, venous blood 33.2 mmol/L 21.0-32 .0 potassium, serum 4.7 mmol/L 3.5-5.2 chloride, serum 104 mmol/L 98-107 blood glucose 93 mg/dL 65-95 urea nitrogen, blood 16 mg/dL 7-18 creatinine, serum 0.62 mg/dL 0.60-1.30 Estimated Glomerular Filtration Rate (calc) 106 (?) mL/min/1.73m2 = OR > 60 mL/min alanine aminotransferase (SGPT), serum 13 U/L 12-78 aspartate aminotransferase (SGOT), serum 19 U/L 19-43 calcium, serum 8.2 mg/dL 8.5-10.1 bilirubin, serum, total 0.40 mg/dL 0.00-1.00 Lab Report: Comp. Metabolic Panel, [facility] - Lab Alkaline phosphatase 91 50-136 Lab Report: UADIP W/MICRO, AUTO - Chemis try RBC, urine, dipstick Negative Negative protein, total urine random Negative mg/dL Negative Lab Report: UADIP W/MICRO, AUTO - Urinal ysis glucose, urine, semiquantitative Negative Neg ative ketones, urine, by test strip Negative Negati ve bilirubin, urine Negative Negative urine color Yellow Colorless;Lightyellow;St raw;Yellow appearance, urine Clear Clear specific gravity, urine 1.025 1.000-1.030 pH, urine, semiquantitative 7.0 5.0-8.5 urobilinogen, urine, semiquantitative (dipstick) 0.2 E .U./dL Normal leukocyte esterase, urine, by dipstick Negative Negative nitrite, urine, semiquantitative Negative Neg ative Office Visit: possible gallbladder sympt oms - [...] negative Strep Screen Lot Number (CLIA Waived) [id number] Strep Screen Exp Date (CLIA Waived) 05/02/2020 Encounters Code Encounter Date Provider Facility CPT-08314 Level 3 Est. Patient 14:45:47 CDT Lina elliott CORE MEASURES ABSTRACTOR-C [facility]-84344 [id number] Vst-Est Level III 16:58:04 CDT Me nae Vazquez [facility]-92803 [id number] Vst-Est Level IV 14:46:36 UNDERLAY STITCHER Foster Patel [facility] CPT-66751 Level 3 Est. Patient 12:37:30 UNDERLAY STITCHER Galilea Se [facility] CPT-64747 Level 3 Est. Patient 11:40:23 CDT Bertrand marquez [facility] CPT-42939 Level 4 Est. Patient 15:33:35 UNDERLAY STITCHER Bertrand marquez [facility] CPT-31295 Level 4 Est. Patient 12:31:54 CDT Bertrand maruqez [facility]-46413 Level 3 Est. Patient 11:27:00 UNDERLAY STITCHER Ike Deluna MD [facility] CPT-86217 Level 3 Est. Patient 08:50:57 UNDERLAY STITCHER Silvia Are [facility] CPT-44084 Level 3 Est. Patient 10:04:13 CDT Bertrand marquez [facility] CPT-87129 Level 4 Est. Patient 16:02:10 UNDERLAY STITCHER Silvia [facility] CPT-11528 Level 3 Est. Patient 13:04:54 UNDERLAY STITCHER Silvia Are [facility]-07360 Level 3 Est. Patient 12:56:37 CDT Bertrand marquez [facility] CPT-14674 Level 3 Est. Patient 19:12:03 CDT Yoli tolbert MD PhD [facility]-04434 Level 3 Est. Patient 14:36:01 CDT Yoli tolbert MD PhD [facility]-68030 Level 2 Est. Patient 08:00:22 CDT Jcarlos dc MD [facility]-23600 Level 3 Est. Patient 19:06:55 CDT Bertrand Jacklyn marquez [facility] CPT-40224 Level 3 Est. Patient 10:08:23 UNDERLAY STITCHER Bertrand Jacklyn Lindsay jimmy [facility] CPT-83886 Level 3 Est. Patient 16:37:54 UNDERLAY STITCHER Bertrand Jacklyn Lindsay jimmy [facility] CPT-56643 Level 3 Est. Patient 11:31:59 UNDERLAY STITCHER Bertrand Jacklyn marquez [facility] CPT-05974 Level 3 Est. Patient 10:20:08 CDT Adolfo villasenor [facility] CPT-37164 Level 3 Est. Patient 13:45:20 CDT Sanket buckley [facility] CPT-04428 Level 3 Est. Patient 12:51:06 CDT Adolfo villasenor [facility] CPT-26041 Level 3 Est. Patient 11:22:51 UNDERLAY STITCHER Yoli tolbert MD PhD [facility] CPT-21883 Level 3 Est. Patient 13:33:19 CDT Bertrand marquez [facility] Procedures Code Procedure Name Date Entry Date Standard Desc ription CPT-08432 Sono abd valle iinc RUQ LUQ ascites search or pylorus - XRAY USE ONLY 09:11:06 CDT CPT-37265 Venipuncture Draw Fee 16:30:28 CDT [id number]-[id number] ([id number]) Influenza immunization administe red or previously received 15:55:57 CDT CPT-05319 Wound Culture - LAB USE ONLY 15:45:25 CDT 2 CPT-20967 Venipuncture Draw Fee 10:23:01 CDT CPT-J0696 Rocephin 1000 mg (Ceftriaxone) 16:20:30 UNDERLAY STITCHER CPT-62167 Abx/Therapy Injection 16:20:29 UNDERLAY STITCHER CPT-J0696 Rocephin 1gm Inj Solr 15:51:59 UNDERLAY STITCHER CPT-86725 Chest 2V Frontal and Lat 15:20:28 UNDERLAY STITCHER 07/22 CPT-25839 Breathing Tx 14:51:55 UNDERLAY STITCHER CPT-23314 Breathing Tx 09:57:16 UNDERLAY STITCHER CPT-91000 Knee comp 4/> V 11:58:06 UNDERLAY STITCHER
[2019-11-13] MEDS ORDERED: MIDAZOLAM 2 MG/2 ML (VERSED) VIAL ONE (09:41)
[2019-11-13] MEDS ORDERED: DEXAMETHASONE 10 MG/ML (DECADRON) 1 ML VIAL ONE (09:41)
[2019-11-13] MEDS ORDERED: LIDOCAINE PF 2% 5 ML (XYLOCAINE) VIAL ONE (09:41)
[2019-11-13] MEDS ORDERED: ONDANSETRON 4 MG/2 ML (SDV) Z0FRAN ONE (09:41)
[2019-11-13] MEDS ORDERED: SEVOFLURANE (ULTANE) 15 ML INHAL SOLN ONE ×7 (09:41→11:48)
[2019-11-13] MEDS ORDERED: ROCURONIUM 10 MG/ML 5 ML SYRINGE IV ONE (09:41)
[2019-11-13] MEDS ORDERED: proPOfol 200 MG/20 ML (DIPRIVAN) VIAL IV ONE (09:41)
--- OUTSIDE RECORDS SUMMARY | 2019-11-13 09:41 | XMS REPORT | Clinical Summary ---
Author Author Admin, Enrique Adamson Organization [employer] Address Unknown Phone Unavailable Allergies, Adverse Reactions, [...] obesity due to excess calories 278.00 Active Lnia Maher APRN-C Obesity, unspecified Hyperlipidemia 272.4 Active [...] Liuibe Cough SINUSITIS, ACUTE 461.9 Resolved Ike eDluna MD Acute sinusitis, unspecified Fatigue 780.79 Resolved [...] URI - viral 465.9 Resolved Lina Maher MANDARIN TEACHER-C Acute upper respiratory infections of unspecified site Pharyngitis acute 462 Resolved Lina Maher MANDARIN TEACHER -C Acute pharyngitis Abdominal pain, upper 789.09 Active Lina Maher A PRN-C Abdominal pain, other specified site; multiple sites Flank pain, left 789.09 Active Lina Maher MANDARIN TEACHER-C Abdominal pain, other specified site; multiple sites Morbid obesity due to excess calories 278.00 Resolved Lina Maher MANDARIN TEACHER-C Obesity, unspecified Other abnormal findings in urine Active 202 Lina Maher MANDARIN TEACHER-C Generalized colicky abdominal pain 789.07 Active 2 Lina Maher MANDARIN TEACHER-C Abdominal pain, generalized Nausea 787.02 Active Lina [...] 09/09/28 EDEMA LEG ICD-782.3 Inactive Adele Feldman BLAST FURNACE KEEPER 201 01/01/02 SHORTNESS OF BREATH ICD-786.05 Inactive Yoli Mercado MD PhD RIB PAIN, RIGHT SIDED ICD-786.50 Inactive Yoli Mercado MD PhD KNEE PAIN, RIGHT ICD-719.46 Inactive Adele Esqueda ghn BLAST FURNACE KEEPER Knee pain, left ICD-719.46 Inactive Adele Holden hn BLAST FURNACE KEEPER Pharyngitis-Acute ICD-462 Inactive Bertrand Redmond DO Polyuria ICD-788.42 Inactive Yoli Mercado MD P hD Cellulitis, leg, right ICD-682.6 Inactive Yuki Deluna MD Foreign body, ear ICD-931 Inactive Yoli salazar MD PhD Fatigue ICD-780.79 Inactive Ike Deluna MD 201 12/01/06 Headache ICD-784.0 Inactive Adele Feldman BLAST FURNACE KEEPER 2017 Cough ICD-786.2 Inactive Adele Feldman BLAST FURNACE KEEPER 06/04 SINUSITIS, ACUTE ICD-461.9 Inactive Ike lange MD Fatigue ICD-780.79 Inactive Adele Feldman BLAST FURNACE KEEPER 2017 Bronchitis acute with bronchospasm ICD-466.0 I nactive Bertrand Patel DO Animal bite ICD-919.8 Inactive Adele Feldman LP N Mycoplasma infection ICD-041.81 Inactive Anit a Feldman BLAST FURNACE KEEPER Amenorrhea, secondary ICD-626.0 Inactive Ani ta Feldman BLAST FURNACE KEEPER Left maxillary sinusitis ICD-473.0 Inactive Bertrand Patel DO URI - viral ICD-465.9 Inactive Lina Maher MANDARIN TEACHER -C Pharyngitis acute ICD-462 Inactive Lina elliott MANDARIN TEACHER-C Morbid obesity due to excess calories ICD-278.00 Inactive Carla ALBERTO Medication List Medication Instructions Start Date Stop Date Generic Name NDC Status Provider Patient Instruction ZOFRAN 4 MG ORAL TABLET 1 tablet by mouth every 6 hour PRN nausea 2 ONDANSETRON HCL 51791066743 Active Adriana Davalos RN Active CYCLOBENZAPRINE HCL 10 MG ORAL TABLET 1 tablet by mout h three times a day as needed for muscle spasm CYCLOBENZAPRINE HCL 54594754455 Ton BAZZI Active HYDROCODONE-ACETAMINOPHEN 7.5-325 MG TABS 1 TAB EVERY 6 HOUR S PRN FOR PAIN HYDROCODONE-ACETAMINOPHEN 47456494859 Active Bertrand Patel DO Active TELMISARTAN 80 MG TABS 1 TABLET PO DAILY FOR BLOOD PRESSURE TELMISARTAN 12559635617 Active Adriana Davalos RN Active MODAFINIL 200 MG TABS 1/2 TABLET PO IN THE AM AND 1/2 TABLET AT NOON MODAFINIL 82816520394 Active Adriana Davalos RN Activ e DULOXETINE HCL 60 MG CPEP 1 CAPSULE PO DAILY DU LOXETINE HCL 81693026891 Active Adriana Davalos RN Active AMLODIPINE 5MG 1 TABLET PO DAILY FOR BLOOD PRESSURE AMLODIPINE BESYLATE 63589951052 Active Adriana Davalos RN Active ALPRAZOLAM 0.5 MG TABS TAKE 1 TABLET BY MOUTH THREE TIMES DAILY 201 02/10/05 ALPRAZOLAM 23482100637 Active Adriana Davalos RN Active SUDAFED 12 HOUR 120 MG ORAL TABLET EXTENDED RELEASE 12 HOUR 1 pill twice daily if for congestion PSEUDOEPHEDRINE HCL 67484110053 Active Silvia Vazquez APRN Active CHERATUSSIN AC 100-10 MG/5ML ORAL SYRUP 5ml po q6hr PRN Cough 20 21/03/15 GUAIFENESIN-CODEINE 99484899595 No Longer Active Silvia Vazquez APRN Active FLUTICASONE PROPIONATE 50 MCG/ACT NASAL SUSPENSION 2 s prays per nostril daily for 2 weeks, then 1 spray each nostril PRN FLUTI CASONE PROPIONATE 68122066373 Active Silvia Vazquez APRN Active EVENING PRIMROSE OIL 1000 MG ORAL CAPSULE 1 capsule once daily EVENING PRIMROSE OIL 03662515615 Active Bertrand Patel DO Active LEVAQUIN 500 MG ORAL TABLET 1 tablet by mouth daily 20 21/06/28 LEVOFLOXACIN 97630545605 No Longer Active Bertrand Patel DO Active PREDNISONE 20 MG ORAL TABLET Take 3 tabs for 3 days, t hen 2 tabs for 3 days, then 1 tab for 3 days PREDNISONE 88458199359 No Rainer fatou Active Galilea Sell MANDARIN TEACHER Active DOXYCYCLINE HYCLATE 100 MG ORAL CAPSULE 1 cap by mouth twice jong ly DOXYCYCLINE HYCLATE 81073743087 No Longer Active Galilea Sell MANDARIN TEACHER Active ADDERALL 10 MG ORAL TABLET 1 tab twice daily 2 AMPHETAMINE-DEXTROAMPHETAMINE 53428619120 No Longer Active Nitza Phi llips Scribe Active ZITHROMAX Z-MARTIN 250 MG ORAL TABLET 2 today and then 1 daily for 4 days AZITHROMYCIN 51113335899 No Longer Active Nitza Osman lips Scribe Active BENZONATATE 200 MG ORAL CAPSULE 1 three times a day as neede d for cough BENZONATATE 61425125528 No Longer Active Nitza Osman lips Scribe Active VITAMIN D3 70688 UNIT ORAL CAPSULE 1 pill Week x 4 mo nths for vitamin D deficiency/osteoporosis CHOLECALCIFEROL 61239637777 N o Longer Active Layla Garcia Active BACTROBAN 2 % EXTERNAL CREAM Apply to affected area BID for up to 10 days MUPIROCIN CALCIUM 17368575893 No Longer Active Ike Deluna MD Active CIPRO 500 MG ORAL TABLET 1 tablet by mouth twice daily CIPROFLOXACIN HCL 60634707322 No Longer Active Adriana Bender LPN Active AUGMENTIN 875-125 MG ORAL TABLET 1 po BID x 10 days 20 18/04/06 AMOXICILLIN-POT CLAVULANATE 69315087348 No Longer Active Adriana Bender LPN Active CYCLOBENZAPRINE HCL 10 MG ORAL TABLET Take 1 tab TID PRN for mus triston pain CYCLOBENZAPRINE HCL 27438748726 No Longer Active Bertrand Patel DO Active TESSALON PERLES 100 MG ORAL CAPSULE 1 tablet by mouth 3 times da juan pablo BENZONATATE 61749931953 No Longer Active Bertrand Patel DO Ac tive NEBULIZER use as directed NEBULIZERS 48282885923 No Longer Active Bertrand Patel DO Active ALBUTEROL SULFATE (2.5 MG/3ML) 0.083% INHALATION NEBUL IZATION SOLUTION one vial per nebulizer every 4-6 hours as needed ALBUTERO L SULFATE 61592274879 No Longer Active Bertrand Patel DO Active SYMBICORT 160-4.5 MCG/ACT INHALATION AEROSOL 2 puffs BID 9 BUDESONIDE-FORMOTEROL FUMARATE 11532545678 No Longer Active Bertrand Patel DO Active PREDNISONE 20 MG ORAL TABLET take 3 tabs daily for 3 d ays, 2 tabs daily for 3 days, 1 tab daily for 3 days, 1/2 tab daily for 3 days 08/02 PREDNISONE 32510513002 No Longer Active Silvia Arell MANDARIN TEACHER Active AZITHROMYCIN 250 MG ORAL TABLET Take 2 tabs po today then 1 tab po daily AZITHROMYCIN 04493933473 No Longer Active Silvia Arell MANDARIN TEACHER Active AUGMENTIN 875-125 MG ORAL TABLET 1 po BID x 10 days 20 19/07/13 AMOXICILLIN-POT CLAVULANATE 05899778275 No Longer Active Adriana Bender LPN Active CHEWABLE CALCIUM 500-200-40 MG-UNT-MCG ORAL TABLET CHEWABLE 1 chew tab bid CALCIUM-VITAMIN D-VITAMIN K 39198975081 Active Silvia Are ll MANDARIN TEACHER Active EQ COMPLETE MULTIVIT ADULT 50+ ORAL TABLET 1 tab po bid MULTIPLE VITAMINS-MINERALS 32703370848 Active Silvia Arell MANDARIN TEACHER Active LORTAB 7.5-500 MG ORAL TABLET take one po Q6 hours 201 09/12/01 HYDROCODONE-ACETAMINOPHEN 53820608591 No Longer Active Nirmal Robbins RN Active [facility] MELATONIN 5-10 MG ORAL TABLET EXTENDED RELEASE Jair e one by mouth daily at bedtime MELATONIN-PYRIDOXINE 42950343717 No Longer Acti ve Bertrand Patel DO Active VITAMIN E 200 UNIT ORAL CAPSULE 1 cap po qd VITAM IN E 88071772164 No Longer Active Bertrand W Jorge DO Active B-12 1000 MCG ORAL CAPSULE 1 tab daily CYANOCOB ALAMIN 33951374416 No Longer Active Bertrand Patel DO Active METFORMIN HCL 500 MG ORAL TABLET 1 bid METFOR MIN HCL 01526580118 No Longer Active Bertrand Patel DO Active FUROSEMIDE 20 MG ORAL TABLET 1 pill by mouth daily if needed for edema FUROSEMIDE 27022561953 No Longer Active Bertrand Patel DO Active PRAVASTATIN SODIUM 20 MG ORAL TABLET 1 tablet by mouth daily at bedtime PRAVASTATIN SODIUM 44905714050 No Longer Active Bertrand Patel DO Active AUGMENTIN 875-125 MG ORAL TABLET 1 pill by mouth twice daily 201 09/10/00 AMOXICILLIN-POT CLAVULANATE 60734115297 No Longer Active Yoli Mercado MD PhD Active LEVAQUIN 500 MG ORAL TABLET 1 pill by mouth daily 2013 LEVOFLOXACIN 88528171879 No Longer Active Yoli Mercado MD PhD Acti ve MICARDIS 80 MG ORAL TABLET 1 tablet daily for blood pressure 07/30 TELMISARTAN 77286137740 Active Adriana Davalos RN Active MICARDIS HCT 80-12.5 MG ORAL TABLET 1 qd TELMISARTAN-HCTZ 31414004021 No Longer Active Bertrand Patel DO Active CINNAMON ALPHA LIPOIC AC CMPLX CAPSULE by mouth twice a day in AM by mouth twice a day in PM ALPHA LIPOIC [id number]-[id number] CA PS 19825020307 No Longer Active Bertrand Patel DO Active AZITHROMYCIN 500 MG INTRAVENOUS SOLUTION RECONSTITUTED 1 po q da y AZITHROMYCIN 25158828648 No Longer Active Bertrand Patel DO A ctive CYMBALTA 30 MG ORAL CAPSULE DELAYED RELEASE PARTICLES 1 cap by mouth daily DULOXETINE HCL 38510342694 No Longer Active Bertrand marquez DO Active CYMBALTA 60 MG ORAL CAPSULE DELAYED RELEASE PARTICLES 1 cap by mouth daily DULOXETINE HCL 40213252516 Active Adriana Davalos RN Active WELLBUTRIN 75 MG ORAL TABLET 2 times daily BUPR OPION HCL 26494135455 No Longer Active Bertrand Patel DO Active PROAIR HFA 108 (90 Base) MCG/ACT INHALATION AEROSOL SO LUTION take one to two puffs po Q4-6 hour prn cough and shortness of breath ALBUTEROL SULFATE 81721452974 Active Bertrand Patel DO Active AZITHROMYCIN 250 MG ORAL TABLET take 2 po today then take 1 po days 2-5 AZITHROMYCIN 45935052875 No Longer Active Adolfo OSORIO Active PERMETHRIN 5 % EXTERNAL CREAM apply neck to toes tonig ht and then rinse off in morning. repeat at 7 days PERMETHRIN 30596180666 No Longer Active Adolfo OSORIO Active AMOXICILLIN 500 MG ORAL CAPSULE 2 po BID x 10 days 201 07/15/00 AMOXICILLIN 82296266666 No Longer Active Yoli Mercado MD PhD Acti ve INSUPEN ULTRAFIN 31G X 6 MM USE DIRECTED INSULIN PEN NEEDLE 44295502145 No Longer Active Bertrand Patel DO Active TRANSDERM-SCOP (1.5 MG) 1 MG/3DAYS TRANSDERMAL PATCH 7 2 HOUR 1 patch applied behind ear q 3 day SCOPOLAMINE BASE 93188617577 No Lo nger Active Bertrand Patel DO Active MACRODANTIN 100 MG ORAL CAPSULE one p.o. b.i.d. x2 weeks NITROFURANTOIN MACROCRYSTAL 50132501874 No Longer Active Bertrand Patel DO Active MACRODANTIN 100 MG ORAL CAPSULE one p.o. b.i.d. x2 weeks MACRODANTIN 100 MG ORAL CAPSULE 3580916 NITROFURANTOIN MACROCRYSTAL Inactive TRANSDERM-SCOP (1.5 MG) 1 [...] days PERMETHRIN 5 % EXTER NAL CREAM 783030 PERMETHRIN Inactive WELLBUTRIN 75 MG ORAL TABLET 2 times daily WELLBUTRIN 75 MG ORAL TABLET BUPROPION HCL Inactive CYMBALTA 30 MG ORAL CAPSULE DELAYED RELEASE PARTICLES 1 cap by mouth daily CYMBALTA 30 MG ORAL CAPSULE DELAYED RELE ASE PARTICLES 166914 DULOXETINE HCL Inactive AZITHROMYCIN 500 MG INTRAVENOUS SOLUTION RECONSTITUTED 1 po q da y AZITHROMYCIN 500 MG INTRAVENOUS SOLUTION RECONSTITUTED 48699 100562 AZITHROMYCIN Inactive CINNAMON ALPHA LIPOIC AC CMPLX CAPSULE by mouth twice a day in AM by mouth twice a day in PM CINNAMON ALPHA LIPOIC AC CMPLX CAPSULE ALPHA LIPOIC AONS-[id number] CAPS Inactive MICARDIS HCT 80-12.5 MG ORAL TABLET 1 qd 07/30 MICARDIS HCT 80-12.5 MG ORAL TABLET 870583 TELMISARTAN-HCTZ Inactive PRAVASTATIN SODIUM 20 MG ORAL TABLET 1 tablet by mouth daily at bedtime PRAVASTATIN SODIUM 20 MG ORAL TABLET 102345 PRAVASTATIN SODIUM Inactive FUROSEMIDE 20 MG ORAL TABLET 1 pill by mouth daily if needed for edema FUROSEMIDE 20 MG ORAL TABLET 258665 FUROSEMIDE Inactive METFORMIN HCL 500 MG ORAL TABLET 1 bid METFORMIN HCL 500 MG ORAL TABLET 828226 METFORMIN HCL Inactive B-12 1000 MCG ORAL CAPSULE 1 tab daily B -12 1000 MCG ORAL CAPSULE CYANOCOBALAMIN Inactive VITAMIN E 200 UNIT ORAL CAPSULE 1 cap po qd 1 VITAMIN E 200 UNIT ORAL CAPSULE 9230910 VITAMIN E Inactive [facility] MELATONIN 5-10 MG [...] po daily AZITHROMYCIN 250 MG ORAL TABLET 779790 AZITHROMY BERNARDO Inactive SYMBICORT 160-4.5 MCG/ACT INHALATION AEROSOL 2 puffs BID 9 SYMBICORT 160-4.5 MCG/ACT INHALATION AEROSOL 7441791 BUDESONID E-FORMOTEROL FUMARATE Inactive ALBUTEROL SULFATE (2.5 MG/3ML) 0.083% INHALATION NEBUL IZATION SOLUTION one vial per nebulizer every 4-6 hours as needed ALBUTEROL SULFATE (2.5 MG/3ML) 0.083% INHALATION NEBULIZATION SOLUTION 545240 ALBUTER OL SULFATE Inactive NEBULIZER use as directed NEBULIZER NEBULI ZERS Inactive TESSALON PERLES 100 MG ORAL CAPSULE 1 tablet by mouth 3 times da juan pablo TESSALON PERLES 100 MG ORAL CAPSULE 617585 BENZONATATE Inactive CYCLOBENZAPRINE HCL 10 MG ORAL TABLET Take 1 tab TID PRN for mus triston pain CYCLOBENZAPRINE HCL 10 MG ORAL TABLET 646360 CYCLOBENZA ANUJA HCL Inactive AUGMENTIN 875-125 MG ORAL TABLET 1 po BID x 10 days 20 18/04/06 AUGMENTIN 875-125 MG ORAL TABLET AMOXICILLIN-POT CLAVULANATE Inactive BACTROBAN 2 % EXTERNAL CREAM Apply to affected area BID for up to 10 days BACTROBAN 2 % EXTERNAL CREAM MUPIROCIN CA LCIUM Inactive VITAMIN D3 73416 UNIT ORAL CAPSULE 1 pill Week x 4 mo nths for vitamin D deficiency/osteoporosis VITAMIN D3 17395 UNIT ORAL CAPSULE CHOLECALCIFEROL Inactive BENZONATATE 200 MG ORAL CAPSULE 1 three times a day as neede d for cough BENZONATATE 200 MG ORAL CAPSULE 114978 BENZONATA TE Inactive ZITHROMAX Z-MARTIN 250 MG ORAL TABLET 2 today and then 1 daily for 4 days ZITHROMAX Z-MARTIN 250 MG ORAL TABLET 444853 AZITHR OMYCIN Inactive ADDERALL 10 MG ORAL TABLET 1 tab twice daily 2 ADDERALL 10 MG ORAL TABLET 831201 AMPHETAMINE-DEXTROAMPHETAMINE Inactive LEVAQUIN 500 MG ORAL TABLET 1 tablet by mouth daily 20 21/06/28 LEVAQUIN 500 MG ORAL TABLET 730687 LEVOFLOXACIN Inactive AMOXICILLIN 500 MG ORAL CAPSULE 2 po BID x 10 days 201 07/15/00 AMOXICILLIN 500 MG ORAL CAPSULE 344820 AMOXICILLIN Inactive AZITHROMYCIN 250 MG ORAL TABLET take 2 po today then take 1 po days 2-5 AZITHROMYCIN 250 MG ORAL TABLET 641597 AZITHROMY BERNARDO Inactive LEVAQUIN 500 MG ORAL TABLET 1 pill by mouth daily 2013 LEVAQUIN 500 MG ORAL TABLET 925347 LEVOFLOXACIN Inactive AUGMENTIN 875-125 MG ORAL TABLET [...] days 08/02 PREDNISONE 20 MG ORAL TABLET 677768 PREDNISONE Inactive CIPRO 500 MG ORAL TABLET 1 tablet by mouth twice daily CIPRO 500 MG ORAL TABLET 200958 CIPROFLOXACIN HCL Inactive DOXYCYCLINE HYCLATE 100 MG ORAL CAPSULE 1 cap by mouth twice jong ly DOXYCYCLINE HYCLATE 100 MG ORAL CAPSULE 6396818 DOXYCYCL INE HYCLATE Inactive PREDNISONE 20 MG ORAL TABLET Take 3 tabs for 3 days, t hen 2 tabs for 3 days, then 1 tab for 3 days PREDNISONE 20 MG ORAL TABLET 312 615 PREDNISONE Inactive CHERATUSSIN AC 100-10 MG/5ML ORAL SYRUP 5ml po q6hr PRN Cough 20 21/03/15 CHERATUSSIN AC 100-10 MG/5ML ORAL SYRUP 890498 GUAIFENE SIN-CODEINE Inactive Immunizations Vaccine Administration Date [...] E&M 65 [in_us] Bdy height pulse rate E&M 89 /min Heart rate temperature E&M 97.8 [...] systolic 159 mm[Hg] BP sys pulse rate E&M 88 /min Heart rate temperature E&M 99.7 [...] 142-424 Lab Report: Comp. Metabolic Panel, [facility] - Chemistry sodium, serum 140 mmol/L 681-626 1732/03/25 carbon dioxide, venous blood 33.2 mmol/L 21.0-32 [...] 0.00-1.00 Lab Report: Comp. Metabolic Panel, [facility] - Lab Alkaline phosphatase 91 50-136 Lab [...] negative Strep Screen Lot Number (CLIA Waived) [id number] Strep Screen Exp Date (CLIA Waived) 05/02/2020 Encounters Code Encounter Date Provider Facility CPT-61438 Level 3 Est. Patient 14:45:47 CDT Lina elliott MANDARIN TEACHER-C [facility] CPT-92436 [id number] Vst-Est Level III 16:58:04 CDT Me nae Vazquez [facility]-89774 [id number] Vst-Est Level IV 14:46:36 STUDY DIRECTOR Foster Patel [facility] CPT-84100 Level 3 Est. Patient 12:37:30 STUDY DIRECTOR Galilea Se [facility] CPT-65895 Level 3 Est. Patient 11:40:23 CDT Bertrand marquez [facility] CPT-14603 Level 4 Est. Patient 15:33:35 STUDY DIRECTOR Bertrand marquez [facility] CPT-16668 Level 4 Est. Patient 12:31:54 CDT Bertrand marquez [facility]-96875 Level 3 Est. Patient 11:27:00 STUDY DIRECTOR Ike Deluna MD [facility] CPT-72878 Level 3 Est. Patient 08:50:57 STUDY DIRECTOR Silvia Are ll [facility] CPT-03996 Level 3 Est. Patient 10:04:13 CDT Bertrand marquez [facility] CPT-85083 Level 4 Est. Patient 16:02:10 STUDY DIRECTOR Silvia Are ll [facility] CPT-24875 Level 3 Est. Patient 13:04:54 STUDY DIRECTOR Silvia Are [facility] CPT-78245 Level 3 Est. Patient 12:56:37 CDT Bertrand marquez [facility] CPT-93047 Level 3 Est. Patient 19:12:03 CDT Yoli tolbert MD PhD [facility] CPT-44239 Level 3 Est. Patient 14:36:01 CDT Yoli tolbert MD PhD [facility] CPT-89520 Level 2 Est. Patient 08:00:22 CDT Jcarlos dc MD [facility]-59763 Level 3 Est. Patient 19:06:55 CDT Bertrand marquez [facility] CPT-90824 Level 3 Est. Patient 10:08:23 STUDY DIRECTOR Bertrand marquez [facility] CPT-58383 Level 3 Est. Patient 16:37:54 STUDY DIRECTOR Bertrand marquez [facility] CPT-56246 Level 3 Est. Patient 11:31:59 STUDY DIRECTOR Bertrand marquez [facility] CPT-94423 Level 3 Est. Patient 10:20:08 CDT Adolfo Porfirioridge jacklyn [facility] CPT-37054 Level 3 Est. Patient 13:45:20 CDT Sanket buckley [facility] CPT-48340 Level 3 Est. Patient 12:51:06 CDT Adolfo Bertrand jacklyn [facility] CPT-60928 Level 3 Est. Patient 11:22:51 STUDY DIRECTOR Yoli tolbert MD PhD [facility] CPT-71229 Level 3 Est. Patient 13:33:19 CDT Bertrand marquez [facility] Procedures Code Procedure Name Date Entry Date Standard Desc ription CPT-56008 Sono abd valle iinc RUQ LUQ ascites search or pylorus - XRAY USE ONLY 09:11:06 CDT CPT-37886 Venipuncture Draw Fee 16:30:28 CDT [id number]-[id number] (4274F) Influenza immunization administe red or previously received 15:55:57 CDT CPT-25639 Wound Culture - LAB USE ONLY 15:45:25 CDT 2 CPT-19310 Venipuncture Draw Fee 10:23:01 CDT CPT-J0696 Rocephin 1000 mg (Ceftriaxone) 16:20:30 STUDY DIRECTOR CPT-31010 Abx/Therapy Injection 16:20:29 STUDY DIRECTOR CPT-J0696 Rocephin 1gm Inj Solr 15:51:59 STUDY DIRECTOR CPT-14617 Chest 2V Frontal and Lat 15:20:28 STUDY DIRECTOR 07/22 CPT-11118 Breathing Tx 14:51:55 STUDY DIRECTOR CPT-37013 Breathing Tx 09:57:16 STUDY DIRECTOR CPT-84401 Knee comp 4/> V 11:58:06 STUDY DIRECTOR
--- OUTSIDE RECORDS SUMMARY | 2019-11-13 09:41 | XMS REPORT | Clinical Summary ---
Author Author Admin, Enrique Adamson Organization [facility] Address Unknown Phone Unavailable Allergies, Adverse Reactions, [...] leg Knee pain, left 719.46 Resolved Nitza Drew crilauren Pain in joint involving lower leg Diabetes, [...] Mycoplasma infection 041.81 Resolved Abiel ti Harpreet Russelle Mycoplasma infection in cond itions classified elsewhere [...] URI - viral 465.9 Resolved Lina Maher AUTOMATIC SERGING 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-C Acute upper respiratory infections of unspecified site Pharyngitis acute 462 Resolved Lina Maher AUTOMATIC SERGING 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 -C Acute pharyngitis Abdominal pain, upper 789.09 Active Lina Adamson PRN-C Abdominal pain, other specified site; multiple sites Flank pain, left 789.09 Active Lina Mahre AUTOMATIC SERGING 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-C Abdominal pain, other specified site; multiple sites Morbid obesity due to excess calories 278.00 Resolved Lina Maher AUTOMATIC SERGING 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-C Obesity, unspecified Other abnormal findings in urine Active 202 Lina Maher AUTOMATIC SERGING 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-C Generalized colicky abdominal pain 789.07 Active 2 Lina Maher AUTOMATIC SERGING 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-C Abdominal pain, generalized Nausea 787.02 Active Lina Gunnar AUTOMATIC SERGING 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-C Nausea alone Abnormal abdominal imaging 793.6 Active E benjamín Gunnar TOVARN-C Nonspecific (abnormal) findings on radio logical and [...] 09/09/28 EDEMA LEG ICD-782.3 Inactive Adele Feldman SURVEY OPERATIONS DIRECTOR 201 01/01/02 SHORTNESS OF BREATH ICD-786.05 Inactive Yoli Mercado MD PhD RIB PAIN, RIGHT SIDED ICD-786.50 Inactive Yoli Mercado MD PhD KNEE PAIN, RIGHT ICD-719.46 Inactive Adele Vaughanu ghn SURVEY OPERATIONS DIRECTOR Knee pain, left ICD-719.46 Inactive Adele Holden hn SURVEY OPERATIONS DIRECTOR Pharyngitis-Acute ICD-462 Inactive Bertrand Redmond DO Polyuria ICD-788.42 Inactive Yoli Mercado MD P hD Cellulitis, leg, right ICD-682.6 Inactive Yuki Deluna MD Foreign body, ear ICD-931 Inactive Yoli salazar MD PhD Fatigue ICD-780.79 Inactive Ike Deluna MD 201 12/01/06 Headache ICD-784.0 Inactive Adele Feldman SURVEY OPERATIONS DIRECTOR 2017 Cough ICD-786.2 Inactive Adele Feldman SURVEY OPERATIONS DIRECTOR 06/04 SINUSITIS, ACUTE ICD-461.9 Inactive Ike lange MD Fatigue ICD-780.79 Inactive Adele Feldman SURVEY OPERATIONS DIRECTOR 2017 Bronchitis acute with bronchospasm ICD-466.0 I nactive Bertrand Patel DO Animal bite ICD-919.8 Inactive Adele Feldman LP N Mycoplasma infection ICD-041.81 Inactive Anit a Feldman SURVEY OPERATIONS DIRECTOR Amenorrhea, secondary ICD-626.0 Inactive Ani ta Feldman SURVEY OPERATIONS DIRECTOR Left maxillary sinusitis ICD-473.0 Inactive Bertrand Patel DO URI - viral ICD-465.9 Inactive Lina Maher AUTOMATIC SERGING 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 -C Pharyngitis acute ICD-462 Inactive Lina elliott AUTOMATIC SERGING 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-C Morbid obesity due to excess calories ICD-278.00 Inactive Carla ALBERTO Medication List Medication Instructions Start Date Stop Date Generic Name NDC Status Provider Patient Instruction ZOFRAN 4 MG ORAL TABLET 1 tablet by mouth every 6 hour PRN nausea 2 ONDANSETRON HCL 26012462838 Active Adriana Davalos RN Active CYCLOBENZAPRINE HCL 10 MG ORAL TABLET 1 tablet by mout h three times a day as needed for muscle spasm CYCLOBENZAPRINE HCL 34633329302 Ton BAZZI Active HYDROCODONE-ACETAMINOPHEN 7.5-325 MG TABS 1 TAB EVERY 6 HOUR S PRN FOR PAIN HYDROCODONE-ACETAMINOPHEN 05643790411 Active Bertrand Patel DO Active TELMISARTAN 80 MG TABS 1 TABLET PO DAILY FOR BLOOD PRESSURE TELMISARTAN 33056662572 Active Adriana Davalos RN Active MODAFINIL 200 MG TABS 1/2 TABLET PO IN THE AM AND 1/2 TABLET AT NOON MODAFINIL 17414769479 Active Adriana Davalos RN Activ e DULOXETINE HCL 60 MG CPEP 1 CAPSULE PO DAILY DU LOXETINE HCL 83599704926 Active Adriana Davalos RN Active AMLODIPINE 5MG 1 TABLET PO DAILY FOR BLOOD PRESSURE AMLODIPINE BESYLATE 10268393144 Active Adriana Davalos RN Active ALPRAZOLAM 0.5 MG TABS TAKE 1 TABLET BY MOUTH THREE TIMES DAILY 201 02/10/05 ALPRAZOLAM 41861678294 Active Adriana Davalos RN Active SUDAFED 12 HOUR 120 MG ORAL TABLET EXTENDED RELEASE 12 HOUR 1 pill twice daily if for congestion PSEUDOEPHEDRINE HCL 39335586220 Active Silvia Vazquez APRN Active CHERATUSSIN AC 100-10 MG/5ML ORAL SYRUP 5ml po q6hr PRN Cough 20 21/03/15 GUAIFENESIN-CODEINE 30411561739 No Longer Active Silvia Vazquez APRN Active FLUTICASONE PROPIONATE 50 MCG/ACT NASAL SUSPENSION 2 s prays per nostril daily for 2 weeks, then 1 spray each nostril PRN FLUTI CASONE PROPIONATE 32617503498 Active Silvia Vazquez APRN Active EVENING PRIMROSE OIL 1000 MG ORAL CAPSULE 1 capsule once daily EVENING PRIMROSE OIL 00713326188 Active Bertrand Patel DO Active LEVAQUIN 500 MG ORAL TABLET 1 tablet by mouth daily 20 21/06/28 LEVOFLOXACIN 73614263243 No Longer Active Bertrand Patel DO Active PREDNISONE 20 MG ORAL TABLET Take 3 tabs for 3 days, t hen 2 tabs for 3 days, then 1 tab for 3 days PREDNISONE 33602329703 No Rainer fatou Active Galilea Sell AUTOMATIC SERGING 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 Active DOXYCYCLINE HYCLATE 100 MG ORAL CAPSULE 1 cap by mouth twice jong ly DOXYCYCLINE HYCLATE 39010023450 No Longer Active Galilea Sell AUTOMATIC SERGING 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 Active ADDERALL 10 MG ORAL TABLET 1 tab twice daily 2 AMPHETAMINE-DEXTROAMPHETAMINE 59926862887 No Longer Active Nitza Phi llips Scribe Active ZITHROMAX Z-MARTIN 250 MG ORAL TABLET 2 today and then 1 daily for 4 days AZITHROMYCIN 05246873475 No Longer Active Nitza Osman lips Scribe Active BENZONATATE 200 MG ORAL CAPSULE 1 three times a day as neede d for cough BENZONATATE 08313368693 No Longer Active Nitza Osman lips Scribe Active VITAMIN D3 02453 UNIT ORAL CAPSULE 1 pill Week x 4 mo nths for vitamin D deficiency/osteoporosis CHOLECALCIFEROL 44705333013 N o Longer Active Layla Garcia Active BACTROBAN 2 % EXTERNAL CREAM Apply to affected area BID for up to 10 days MUPIROCIN CALCIUM 90577715070 No Longer Active Ike Deluna MD Active CIPRO 500 MG ORAL TABLET 1 tablet by mouth twice daily CIPROFLOXACIN HCL 92911306617 No Longer Active Adriana Bender LPN Active AUGMENTIN 875-125 MG ORAL TABLET 1 po BID x 10 days 20 18/04/06 AMOXICILLIN-POT CLAVULANATE 31921131649 No Longer Active Adriana Bender LPN Active CYCLOBENZAPRINE HCL 10 MG ORAL TABLET Take 1 tab TID PRN for mus triston pain CYCLOBENZAPRINE HCL 03830372566 No Longer Active Bertrand Patel DO Active TESSALON PERLES 100 MG ORAL CAPSULE 1 tablet by mouth 3 times da juan pablo BENZONATATE 71307622424 No Longer Active Bertrand Patel DO Ac tive NEBULIZER use as directed NEBULIZERS 17553422927 No Longer Active Bertrand Patel DO Active ALBUTEROL SULFATE (2.5 MG/3ML) 0.083% INHALATION NEBUL IZATION SOLUTION one vial per nebulizer every 4-6 hours as needed ALBUTERO L SULFATE 99150768647 No Longer Active Bertrand Patel DO Active SYMBICORT 160-4.5 MCG/ACT INHALATION AEROSOL 2 puffs BID 9 BUDESONIDE-FORMOTEROL FUMARATE 64874395819 No Longer Active Bertrand Patel DO Active PREDNISONE 20 MG ORAL TABLET take 3 tabs daily for 3 d ays, 2 tabs daily for 3 days, 1 tab daily for 3 days, 1/2 tab daily for 3 days 08/02 PREDNISONE 60230318146 No Longer Active Silvia Arell AUTOMATIC SERGING 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 Active AZITHROMYCIN 250 MG ORAL TABLET Take 2 tabs po today then 1 tab po daily AZITHROMYCIN 18995639243 No Longer Active Silvia Arell AUTOMATIC SERGING 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 Active AUGMENTIN 875-125 MG ORAL TABLET 1 po BID x 10 days 20 19/07/13 AMOXICILLIN-POT CLAVULANATE 99057549901 No Longer Active Adriana Bender LPN Active CHEWABLE CALCIUM 500-200-40 MG-UNT-MCG ORAL TABLET CHEWABLE 1 chew tab bid CALCIUM-VITAMIN D-VITAMIN K 33366689944 Active Silvia Are ll AUTOMATIC SERGING 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 Active EQ COMPLETE MULTIVIT ADULT 50+ ORAL TABLET 1 tab po bid MULTIPLE VITAMINS-MINERALS 76618302488 Active Silvia Arell AUTOMATIC SERGING 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 Active LORTAB 7.5-500 MG ORAL TABLET take one po Q6 hours 201 09/12/01 HYDROCODONE-ACETAMINOPHEN 38081141689 No Longer Active Nirmal Robbins RN Active [facility] MELATONIN 5-10 MG ORAL TABLET EXTENDED RELEASE Jair e one by mouth daily at bedtime MELATONIN-PYRIDOXINE 52675683114 No Longer Acti ve Bertrand Patel DO Active VITAMIN E 200 UNIT ORAL CAPSULE 1 cap po qd VITAM IN E 14247211839 No Longer Active Bertrand W Jorge DO Active B-12 1000 MCG ORAL CAPSULE 1 tab daily CYANOCOB ALAMIN 84403926037 No Longer Active Bertrand Patel DO Active METFORMIN HCL 500 MG ORAL TABLET 1 bid METFOR MIN HCL 29553322065 No Longer Active Bertrand Patel DO Active FUROSEMIDE 20 MG ORAL TABLET 1 pill by mouth daily if needed for edema FUROSEMIDE 30578525824 No Longer Active Bertrand Patel DO Active PRAVASTATIN SODIUM 20 MG ORAL TABLET 1 tablet by mouth daily at bedtime PRAVASTATIN SODIUM 50368949368 No Longer Active Bertrand Patel DO Active AUGMENTIN 875-125 MG ORAL TABLET 1 pill by mouth twice daily 201 09/10/00 AMOXICILLIN-POT CLAVULANATE 04635421448 No Longer Active Yoli Mercado MD PhD Active LEVAQUIN 500 MG ORAL TABLET 1 pill by mouth daily 2013 LEVOFLOXACIN 17945616148 No Longer Active Yoli Mercado MD PhD Acti ve MICARDIS 80 MG ORAL TABLET 1 tablet daily for blood pressure 07/30 TELMISARTAN 72969337260 Active Adriana Davalos RN Active MICARDIS HCT 80-12.5 MG ORAL TABLET 1 qd TELMISARTAN-HCTZ 95526531203 No Longer Active Bertrand Patel DO Active CINNAMON ALPHA LIPOIC AC CMPLX CAPSULE by mouth twice a day in AM by mouth twice a day in PM ALPHA LIPOIC UYGF-WD-INORHBYS CA PS 49449773378 No Longer Active Bertrand Patel DO Active AZITHROMYCIN 500 MG INTRAVENOUS SOLUTION RECONSTITUTED 1 po q da y AZITHROMYCIN 35639101308 No Longer Active Bertrand Patel DO A ctive CYMBALTA 30 MG ORAL CAPSULE DELAYED RELEASE PARTICLES 1 cap by mouth daily DULOXETINE HCL 46979711369 No Longer Active Bertrand marquez DO Active CYMBALTA 60 MG ORAL CAPSULE DELAYED RELEASE PARTICLES 1 cap by mouth daily DULOXETINE HCL 02940065583 Active Adriana Davalos RN Active WELLBUTRIN 75 MG ORAL TABLET 2 times daily BUPR OPION HCL 22996366336 No Longer Active Bertrand Patel DO Active PROAIR HFA 108 (90 Base) MCG/ACT INHALATION AEROSOL SO LUTION take one to two puffs po Q4-6 hour prn cough and shortness of breath ALBUTEROL SULFATE 90734929498 Active Bertrand Patel DO Active AZITHROMYCIN 250 MG ORAL TABLET take 2 po today then take 1 po days 2-5 AZITHROMYCIN 76665119515 No Longer Active Adolfo OSORIO Active PERMETHRIN 5 % EXTERNAL CREAM apply neck to toes tonig ht and then rinse off in morning. repeat at 7 days PERMETHRIN 32875266008 No Longer Active Adolfo OSORIO Active AMOXICILLIN 500 MG ORAL CAPSULE 2 po BID x 10 days 201 07/15/00 AMOXICILLIN 21084837457 No Longer Active Yoli Mercado MD PhD Acti ve INSUPEN ULTRAFIN 31G X 6 MM USE DIRECTED INSULIN PEN NEEDLE 39900059916 No Longer Active Bertrand Patel DO Active TRANSDERM-SCOP (1.5 MG) 1 MG/3DAYS TRANSDERMAL PATCH 7 2 HOUR 1 patch applied behind ear q 3 day SCOPOLAMINE BASE 24489110940 No Lo nger Active Bertrand Patel DO Active MACRODANTIN 100 MG ORAL CAPSULE one p.o. b.i.d. x2 weeks NITROFURANTOIN MACROCRYSTAL 36845617412 No Longer Active Bertrand Patel DO Active MACRODANTIN 100 MG ORAL CAPSULE one p.o. b.i.d. x2 weeks MACRODANTIN 100 MG ORAL CAPSULE 4635184 NITROFURANTOIN MACROCRYSTAL Inactive TRANSDERM-SCOP (1.5 MG) 1 [...] days PERMETHRIN 5 % EXTER NAL CREAM 715773 PERMETHRIN Inactive WELLBUTRIN 75 MG ORAL TABLET 2 times daily WELLBUTRIN 75 MG ORAL TABLET BUPROPION HCL Inactive CYMBALTA 30 MG ORAL CAPSULE DELAYED RELEASE PARTICLES 1 cap by mouth daily CYMBALTA 30 MG ORAL CAPSULE DELAYED RELE ASE PARTICLES 742707 DULOXETINE HCL Inactive AZITHROMYCIN 500 MG INTRAVENOUS SOLUTION RECONSTITUTED 1 po q da y AZITHROMYCIN 500 MG INTRAVENOUS SOLUTION RECONSTITUTED 86906 967129 AZITHROMYCIN Inactive CINNAMON ALPHA LIPOIC AC CMPLX CAPSULE by mouth twice a day in AM by mouth twice a day in PM CINNAMON ALPHA LIPOIC AC CMPLX CAPSULE ALPHA LIPOIC [id number] CAPS Inactive MICARDIS HCT 80-12.5 MG ORAL TABLET 1 qd 07/30 MICARDIS HCT 80-12.5 MG ORAL TABLET 586543 TELMISARTAN-HCTZ Inactive PRAVASTATIN SODIUM 20 MG ORAL TABLET 1 tablet by mouth daily at bedtime PRAVASTATIN SODIUM 20 MG ORAL TABLET 783614 PRAVASTATIN SODIUM Inactive FUROSEMIDE 20 MG ORAL TABLET 1 pill by mouth daily if needed for edema FUROSEMIDE 20 MG ORAL TABLET 511170 FUROSEMIDE Inactive METFORMIN HCL 500 MG ORAL TABLET 1 bid METFORMIN HCL 500 MG ORAL TABLET 081495 METFORMIN HCL Inactive B-12 1000 MCG ORAL CAPSULE 1 tab daily B -12 1000 MCG ORAL CAPSULE CYANOCOBALAMIN Inactive VITAMIN E 200 UNIT ORAL CAPSULE 1 cap po qd 1 VITAMIN E 200 UNIT ORAL CAPSULE 5838268 VITAMIN E Inactive [facility] MELATONIN 5-10 MG [...] po daily AZITHROMYCIN 250 MG ORAL TABLET 007653 AZITHROMY BERNARDO Inactive SYMBICORT 160-4.5 MCG/ACT INHALATION AEROSOL 2 puffs BID 9 SYMBICORT 160-4.5 MCG/ACT INHALATION AEROSOL 1580882 BUDESONID E-FORMOTEROL FUMARATE Inactive ALBUTEROL SULFATE (2.5 MG/3ML) 0.083% INHALATION NEBUL IZATION SOLUTION one vial per nebulizer every 4-6 hours as needed ALBUTEROL SULFATE (2.5 MG/3ML) 0.083% INHALATION NEBULIZATION SOLUTION 124616 ALBUTER OL SULFATE Inactive NEBULIZER use as directed NEBULIZER NEBULI ZERS Inactive TESSALON PERLES 100 MG ORAL CAPSULE 1 tablet by mouth 3 times da juan pablo TESSALON PERLES 100 MG ORAL CAPSULE 864724 BENZONATATE Inactive CYCLOBENZAPRINE HCL 10 MG ORAL TABLET Take 1 tab TID PRN for mus triston pain CYCLOBENZAPRINE HCL 10 MG ORAL TABLET 065517 CYCLOBENZA ANUJA HCL Inactive AUGMENTIN 875-125 MG ORAL TABLET 1 po BID x 10 days 20 18/04/06 AUGMENTIN 875-125 MG ORAL TABLET AMOXICILLIN-POT CLAVULANATE Inactive BACTROBAN 2 % EXTERNAL CREAM Apply to affected area BID for up to 10 days BACTROBAN 2 % EXTERNAL CREAM MUPIROCIN CA LCIUM Inactive VITAMIN D3 23693 UNIT ORAL CAPSULE 1 pill Week x 4 mo nths for vitamin D deficiency/osteoporosis VITAMIN D3 09197 UNIT ORAL CAPSULE CHOLECALCIFEROL Inactive BENZONATATE 200 MG ORAL CAPSULE 1 three times a day as neede d for cough BENZONATATE 200 MG ORAL CAPSULE 470454 BENZONATA TE Inactive ZITHROMAX Z-MARTIN 250 MG ORAL TABLET 2 today and then 1 daily for 4 days ZITHROMAX Z-MARTIN 250 MG ORAL TABLET 229280 AZITHR OMYCIN Inactive ADDERALL 10 MG ORAL TABLET 1 tab twice daily 2 ADDERALL 10 MG ORAL TABLET 244082 AMPHETAMINE-DEXTROAMPHETAMINE Inactive LEVAQUIN 500 MG ORAL TABLET 1 tablet by mouth daily 20 21/06/28 LEVAQUIN 500 MG ORAL TABLET 283676 LEVOFLOXACIN Inactive AMOXICILLIN 500 MG ORAL CAPSULE 2 po BID x 10 days 201 07/15/00 AMOXICILLIN 500 MG ORAL CAPSULE 431507 AMOXICILLIN Inactive AZITHROMYCIN 250 MG ORAL TABLET take 2 po today then take 1 po days 2-5 AZITHROMYCIN 250 MG ORAL TABLET 712731 AZITHROMY BERNARDO Inactive LEVAQUIN 500 MG ORAL TABLET 1 pill by mouth daily 2013 LEVAQUIN 500 MG ORAL TABLET 161135 LEVOFLOXACIN Inactive AUGMENTIN 875-125 MG ORAL TABLET [...] days 08/02 PREDNISONE 20 MG ORAL TABLET 248277 PREDNISONE Inactive CIPRO 500 MG ORAL TABLET 1 tablet by mouth twice daily CIPRO 500 MG ORAL TABLET 263066 CIPROFLOXACIN HCL Inactive DOXYCYCLINE HYCLATE 100 MG ORAL CAPSULE 1 cap by mouth twice jong ly DOXYCYCLINE HYCLATE 100 MG ORAL CAPSULE 8941094 DOXYCYCL INE HYCLATE Inactive PREDNISONE 20 MG ORAL TABLET Take 3 tabs for 3 days, t hen 2 tabs for 3 days, then 1 tab for 3 days PREDNISONE 20 MG ORAL TABLET 312 615 PREDNISONE Inactive CHERATUSSIN AC 100-10 MG/5ML ORAL SYRUP 5ml po q6hr PRN Cough 20 21/03/15 CHERATUSSIN AC 100-10 MG/5ML ORAL SYRUP 540481 GUAIFENE SIN-CODEINE Inactive Immunizations Vaccine Administration Date [...] 10*3/mm3 142-424 Lab Report: Comp. Metabolic Panel, [facility], [place] - Chemistry sodium, serum 140 mmol/L 687-149 8248/03/25 carbon dioxide, venous blood 33.2 mmol/L 21.0-32 [...] mg/dL 0.00-1.00 Lab Report: Comp. Metabolic Panel, [facility], [place] - Lab Alkaline phosphatase 91 50-136 Lab [...] negative Strep Screen Lot Number (CLIA Waived) [id number] Strep Screen Exp Date (CLIA Waived) 05/02/2020 Encounters Code Encounter Date Provider Facility CPT-83549 Level 3 Est. Patient 14:45:47 CDT Lina elliott AUTOMATIC SERGING 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-C [facility] CPT-46993 57033-Vkg Vst-Est Level III 16:58:04 CDT Me nae Vazquez [facility] CPT-88537 79739-Nhq Vst-Est Level IV 14:46:36 CERTIFIED OPHTHALMIC TECHNOLOGIST Foster umair Patel [facility] CPT-94832 Level 3 Est. Patient 12:37:30 CERTIFIED OPHTHALMIC TECHNOLOGIST Galilea Se [facility] CPT-82639 Level 3 Est. Patient 11:40:23 CDT Bertrand marquez [facility] CPT-45956 Level 4 Est. Patient 15:33:35 CERTIFIED OPHTHALMIC TECHNOLOGIST Bertrand marquez [facility] CPT-17338 Level 4 Est. Patient 12:31:54 CDT Bertrand marquez [facility]-16400 Level 3 Est. Patient 11:27:00 CERTIFIED OPHTHALMIC TECHNOLOGIST Ike Deluna MD [facility] CPT-18517 Level 3 Est. Patient 08:50:57 CERTIFIED OPHTHALMIC TECHNOLOGIST Silvia Are [facility] CPT-82287 Level 3 Est. Patient 10:04:13 CDT Bertrand marquez [facility] CPT-63046 Level 4 Est. Patient 16:02:10 CERTIFIED OPHTHALMIC TECHNOLOGIST Silvia Are [facility] CPT-84482 Level 3 Est. Patient 13:04:54 CERTIFIED OPHTHALMIC TECHNOLOGIST Silvia Are [facility] CPT-30483 Level 3 Est. Patient 12:56:37 CDT Bertrand marquez [facility] CPT-34132 Level 3 Est. Patient 19:12:03 CDT Yoli tolbert MD PhD [facility] CPT-45642 Level 3 Est. Patient 14:36:01 CDT Yoli tolbert MD PhD [facility] CPT-94473 Level 2 Est. Patient 08:00:22 CDT Jcarlos dc MD [facility]-64507 Level 3 Est. Patient 19:06:55 CDT Bertrand marquez [facility] CPT-92312 Level 3 Est. Patient 10:08:23 CERTIFIED OPHTHALMIC TECHNOLOGIST Bertrand marquez [facility] CPT-46108 Level 3 Est. Patient 16:37:54 CERTIFIED OPHTHALMIC TECHNOLOGIST Bertrand marquez [facility] CPT-68769 Level 3 Est. Patient 11:31:59 CERTIFIED OPHTHALMIC TECHNOLOGIST Bertrand marquez [facility] CPT-67274 Level 3 Est. Patient 10:20:08 CDT Adolfo hallist [facility] CPT-86898 Level 3 Est. Patient 13:45:20 CDT Sanket buckley [facility] CPT-97017 Level 3 Est. Patient 12:51:06 CDT Adolfo villasenor [facility] CPT-40110 Level 3 Est. Patient 11:22:51 CERTIFIED OPHTHALMIC TECHNOLOGIST Yoli tolbert MD PhD [facility] CPT-42275 Level 3 Est. Patient 13:33:19 CDT Bertrand marquez [facility] Procedures Code Procedure Name Date Entry Date Standard Desc ription CPT-84891 Sono abd valle iinc RUQ LUQ ascites search or pylorus - XRAY USE ONLY 09:11:06 CDT CPT-66586 Venipuncture Draw Fee 16:30:28 CDT [id number]-[id number] ([id number]) Influenza immunization administe red or previously received 15:55:57 CDT CPT-49284 Wound Culture - LAB USE ONLY 15:45:25 CDT 2 CPT-84756 Venipuncture Draw Fee 10:23:01 CDT CPT-J0696 Rocephin 1000 mg (Ceftriaxone) 16:20:30 CERTIFIED OPHTHALMIC TECHNOLOGIST CPT-65301 Abx/Therapy Injection 16:20:29 CERTIFIED OPHTHALMIC TECHNOLOGIST CPT-J0696 Rocephin 1gm Inj Solr 15:51:59 CERTIFIED OPHTHALMIC TECHNOLOGIST CPT-54021 Chest 2V Frontal and Lat 15:20:28 CERTIFIED OPHTHALMIC TECHNOLOGIST 07/22 CPT-64290 Breathing Tx 14:51:55 CERTIFIED OPHTHALMIC TECHNOLOGIST CPT-94613 Breathing Tx 09:57:16 CERTIFIED OPHTHALMIC TECHNOLOGIST CPT-60284 Knee comp 4/> V 11:58:06 CERTIFIED OPHTHALMIC TECHNOLOGIST
--- OUTSIDE RECORDS SUMMARY | 2019-11-13 09:42 | XMS REPORT | Clinical Summary ---
Author Author Admin, Enrique Adamson Organization [employer] Address Unknown Phone Unavailable Allergies, Adverse Reactions, [...] URI - viral 465.9 Resolved Lina Maher RESCUE INSTRUCTOR-C Acute upper respiratory infections of unspecified site Pharyngitis acute 462 Resolved Lina Maher RESCUE INSTRUCTOR -C Acute pharyngitis Abdominal pain, upper 789.09 Active Lina Maher A PRN-C Abdominal pain, other specified site; multiple sites Flank pain, left 789.09 Active Lina Maher RESCUE INSTRUCTOR-C Abdominal pain, other specified site; multiple sites Morbid obesity due to excess calories 278.00 Resolved Lina Maher RESCUE INSTRUCTOR-C Obesity, unspecified Other abnormal findings in urine Active 202 Lina Maher RESCUE INSTRUCTOR-C Generalized colicky abdominal pain 789.07 Active 2 Lina Maher RESCUE INSTRUCTOR-C Abdominal pain, generalized Nausea 787.02 Active Lina [...] 09/09/28 EDEMA LEG ICD-782.3 Inactive Adele Feldman SNUFF DRIER 201 01/01/02 SHORTNESS OF BREATH ICD-786.05 Inactive Yoli Mercado MD PhD RIB PAIN, RIGHT SIDED ICD-786.50 Inactive Yoli Mercado MD PhD KNEE PAIN, RIGHT ICD-719.46 Inactive Adele Esqueda ghn SNUFF DRIER Knee pain, left ICD-719.46 Inactive Adele Holden hn SNUFF DRIER Pharyngitis-Acute ICD-462 Inactive Bertrand Redmond DO Polyuria ICD-788.42 Inactive Yoli Mercado MD P hD Cellulitis, leg, right ICD-682.6 Inactive Yuki Deluna MD Foreign body, ear ICD-931 Inactive Yoli salazar MD PhD Fatigue ICD-780.79 Inactive Ike Deluna MD 201 12/01/06 Headache ICD-784.0 Inactive Adele Feldman SNUFF DRIER 2017 Cough ICD-786.2 Inactive Adele Feldman SNUFF DRIER 06/04 SINUSITIS, ACUTE ICD-461.9 Inactive Ike lange MD Fatigue ICD-780.79 Inactive Adele Feldman SNUFF DRIER 2017 Bronchitis acute with bronchospasm ICD-466.0 I nactive Bertrand Patel DO Animal bite ICD-919.8 Inactive Adele Feldman LP N Mycoplasma infection ICD-041.81 Inactive Anit a Feldman SNUFF DRIER Amenorrhea, secondary ICD-626.0 Inactive Ani ta Feldman SNUFF DRIER Left maxillary sinusitis ICD-473.0 Inactive Bertrand Patel DO URI - viral ICD-465.9 Inactive Lina Maher RESCUE INSTRUCTOR -C Pharyngitis acute ICD-462 Inactive Lina elliott RESCUE INSTRUCTOR-C Morbid obesity due to excess calories ICD-278.00 Inactive Carla ALBERTO Medication List Medication Instructions Start Date Stop Date Generic Name NDC Status Provider Patient Instruction ZOFRAN 4 MG ORAL TABLET 1 tablet by mouth every 6 hour PRN nausea 2 ONDANSETRON HCL 74691397671 Active Adriana Davalos RN Active CYCLOBENZAPRINE HCL 10 MG ORAL TABLET 1 tablet by mout h three times a day as needed for muscle spasm CYCLOBENZAPRINE HCL 18844559666 Ton BAZZI Active HYDROCODONE-ACETAMINOPHEN 7.5-325 MG TABS 1 TAB EVERY 6 HOUR S PRN FOR PAIN HYDROCODONE-ACETAMINOPHEN 24817536229 Active Bertrand Patel DO Active TELMISARTAN 80 MG TABS 1 TABLET PO DAILY FOR BLOOD PRESSURE TELMISARTAN 19016633137 Active Adriana Davalos RN Active MODAFINIL 200 MG TABS 1/2 TABLET PO IN THE AM AND 1/2 TABLET AT NOON MODAFINIL 72756743992 Active Adriana Davalos RN Activ e DULOXETINE HCL 60 MG CPEP 1 CAPSULE PO DAILY DU LOXETINE HCL 80210448562 Active Adriana Davalos RN Active AMLODIPINE 5MG 1 TABLET PO DAILY FOR BLOOD PRESSURE AMLODIPINE BESYLATE 58373711111 Active Adriana Davalos RN Active ALPRAZOLAM 0.5 MG TABS TAKE 1 TABLET BY MOUTH THREE TIMES DAILY 201 02/10/05 ALPRAZOLAM 29542660870 Active Adriana Davalos RN Active SUDAFED 12 HOUR 120 MG ORAL TABLET EXTENDED RELEASE 12 HOUR 1 pill twice daily if for congestion PSEUDOEPHEDRINE HCL 61817716947 Active Silvia Vazquez APRN Active CHERATUSSIN AC 100-10 MG/5ML ORAL SYRUP 5ml po q6hr PRN Cough 20 21/03/15 GUAIFENESIN-CODEINE 03187498450 No Longer Active Silvia Vazquez APRN Active FLUTICASONE PROPIONATE 50 MCG/ACT NASAL SUSPENSION 2 s prays per nostril daily for 2 weeks, then 1 spray each nostril PRN FLUTI CASONE PROPIONATE 95561496556 Active Silvia Vazquez APRN Active EVENING PRIMROSE OIL 1000 MG ORAL CAPSULE 1 capsule once daily EVENING PRIMROSE OIL 53797086789 Active Bertrand Patel DO Active LEVAQUIN 500 MG ORAL TABLET 1 tablet by mouth daily 20 21/06/28 LEVOFLOXACIN 29556565306 No Longer Active Bertrand Patel DO Active PREDNISONE 20 MG ORAL TABLET Take 3 tabs for 3 days, t hen 2 tabs for 3 days, then 1 tab for 3 days PREDNISONE 83646687144 No Rainer fatou Active Galilea Sell RESCUE INSTRUCTOR Active DOXYCYCLINE HYCLATE 100 MG ORAL CAPSULE 1 cap by mouth twice jong ly DOXYCYCLINE HYCLATE 11871415324 No Longer Active Galilea Sell RESCUE INSTRUCTOR Active ADDERALL 10 MG ORAL TABLET 1 tab twice daily 2 AMPHETAMINE-DEXTROAMPHETAMINE 81847921575 No Longer Active Nitza Phi llips Scribe Active ZITHROMAX Z-MARTIN 250 MG ORAL TABLET 2 today and then 1 daily for 4 days AZITHROMYCIN 52985259511 No Longer Active Nitza Osman lips Scribe Active BENZONATATE 200 MG ORAL CAPSULE 1 three times a day as neede d for cough BENZONATATE 72159668042 No Longer Active Nitza Osman lips Scribe Active VITAMIN D3 60699 UNIT ORAL CAPSULE 1 pill Week x 4 mo nths for vitamin D deficiency/osteoporosis CHOLECALCIFEROL 51729784861 N o Longer Active Layla Garcia Active BACTROBAN 2 % EXTERNAL CREAM Apply to affected area BID for up to 10 days MUPIROCIN CALCIUM 81717503939 No Longer Active Ike Deluna MD Active CIPRO 500 MG ORAL TABLET 1 tablet by mouth twice daily CIPROFLOXACIN HCL 19901501130 No Longer Active Adriana Bender LPN Active AUGMENTIN 875-125 MG ORAL TABLET 1 po BID x 10 days 20 18/04/06 AMOXICILLIN-POT CLAVULANATE 60779756085 No Longer Active Adriana Bender LPN Active CYCLOBENZAPRINE HCL 10 MG ORAL TABLET Take 1 tab TID PRN for mus triston pain CYCLOBENZAPRINE HCL 36988451163 No Longer Active Bertrand Patel DO Active TESSALON PERLES 100 MG ORAL CAPSULE 1 tablet by mouth 3 times da juan pablo BENZONATATE 88502940620 No Longer Active Bertrand Patel DO Ac tive NEBULIZER use as directed NEBULIZERS 51188761532 No Longer Active Bertrand Patel DO Active ALBUTEROL SULFATE (2.5 MG/3ML) 0.083% INHALATION NEBUL IZATION SOLUTION one vial per nebulizer every 4-6 hours as needed ALBUTERO L SULFATE 44916118514 No Longer Active Bertrand Patel DO Active SYMBICORT 160-4.5 MCG/ACT INHALATION AEROSOL 2 puffs BID 9 BUDESONIDE-FORMOTEROL FUMARATE 75635008135 No Longer Active Bertrand Patel DO Active PREDNISONE 20 MG ORAL TABLET take 3 tabs daily for 3 d ays, 2 tabs daily for 3 days, 1 tab daily for 3 days, 1/2 tab daily for 3 days 08/02 PREDNISONE 23356613585 No Longer Active Silvia Arell RESCUE INSTRUCTOR Active AZITHROMYCIN 250 MG ORAL TABLET Take 2 tabs po today then 1 tab po daily AZITHROMYCIN 87739531868 No Longer Active Silvia Arell RESCUE INSTRUCTOR Active AUGMENTIN 875-125 MG ORAL TABLET 1 po BID x 10 days 20 19/07/13 AMOXICILLIN-POT CLAVULANATE 20538065297 No Longer Active Adriana Bender LPN Active CHEWABLE CALCIUM 500-200-40 MG-UNT-MCG ORAL TABLET CHEWABLE 1 chew tab bid CALCIUM-VITAMIN D-VITAMIN K 62348962046 Active Silvia Are ll RESCUE INSTRUCTOR Active EQ COMPLETE MULTIVIT ADULT 50+ ORAL TABLET 1 tab po bid MULTIPLE VITAMINS-MINERALS 72258854751 Active Silvia Arell RESCUE INSTRUCTOR Active LORTAB 7.5-500 MG ORAL TABLET take one po Q6 hours 201 09/12/01 HYDROCODONE-ACETAMINOPHEN 52222073153 No Longer Active Nirmal Robbins RN Active [facility] MELATONIN 5-10 MG ORAL TABLET EXTENDED RELEASE Jair e one by mouth daily at bedtime MELATONIN-PYRIDOXINE 60107136196 No Longer Acti ve Bertrand Patel DO Active VITAMIN E 200 UNIT ORAL CAPSULE 1 cap po qd VITAM IN E 74999573781 No Longer Active Bertrand W Jorge DO Active B-12 1000 MCG ORAL CAPSULE 1 tab daily CYANOCOB ALAMIN 73289596456 No Longer Active Bertrand Patel DO Active METFORMIN HCL 500 MG ORAL TABLET 1 bid METFOR MIN HCL 69124147924 No Longer Active Bertrand Patel DO Active FUROSEMIDE 20 MG ORAL TABLET 1 pill by mouth daily if needed for edema FUROSEMIDE 42031478274 No Longer Active Bertrand Patel DO Active PRAVASTATIN SODIUM 20 MG ORAL TABLET 1 tablet by mouth daily at bedtime PRAVASTATIN SODIUM 99882470608 No Longer Active Bertrand Patel DO Active AUGMENTIN 875-125 MG ORAL TABLET 1 pill by mouth twice daily 201 09/10/00 AMOXICILLIN-POT CLAVULANATE 36145762763 No Longer Active Yoli Mercado MD PhD Active LEVAQUIN 500 MG ORAL TABLET 1 pill by mouth daily 2013 LEVOFLOXACIN 07735636719 No Longer Active Yoli Mercado MD PhD Acti ve MICARDIS 80 MG ORAL TABLET 1 tablet daily for blood pressure 07/30 TELMISARTAN 33075679276 Active Adriana Davalos RN Active MICARDIS HCT 80-12.5 MG ORAL TABLET 1 qd TELMISARTAN-HCTZ 73170363977 No Longer Active Bertrand Patel DO Active CINNAMON ALPHA LIPOIC AC CMPLX CAPSULE by mouth twice a day in AM by mouth twice a day in PM ALPHA LIPOIC FUAM-LP-AZGHYKCA CA PS 05761145073 No Longer Active Bertrand Patel DO Active AZITHROMYCIN 500 MG INTRAVENOUS SOLUTION RECONSTITUTED 1 po q da y AZITHROMYCIN 85928794717 No Longer Active Bertrand Patel DO A ctive CYMBALTA 30 MG ORAL CAPSULE DELAYED RELEASE PARTICLES 1 cap by mouth daily DULOXETINE HCL 98877833825 No Longer Active Bertrand marquez DO Active CYMBALTA 60 MG ORAL CAPSULE DELAYED RELEASE PARTICLES 1 cap by mouth daily DULOXETINE HCL 15990775021 Active Adriana Davalos RN Active WELLBUTRIN 75 MG ORAL TABLET 2 times daily BUPR OPION HCL 15167339349 No Longer Active Bertrand Patel DO Active PROAIR HFA 108 (90 Base) MCG/ACT INHALATION AEROSOL SO LUTION take one to two puffs po Q4-6 hour prn cough and shortness of breath ALBUTEROL SULFATE 16399851816 Active Bertrand Patel DO Active AZITHROMYCIN 250 MG ORAL TABLET take 2 po today then take 1 po days 2-5 AZITHROMYCIN 79675221150 No Longer Active Adolfo OSORIO Active PERMETHRIN 5 % EXTERNAL CREAM apply neck to toes tonig ht and then rinse off in morning. repeat at 7 days PERMETHRIN 53056301345 No Longer Active Adolfo OSORIO Active AMOXICILLIN 500 MG ORAL CAPSULE 2 po BID x 10 days 201 07/15/00 AMOXICILLIN 70878259364 No Longer Active Yoli Mercado MD PhD Acti ve INSUPEN ULTRAFIN 31G X 6 MM USE DIRECTED INSULIN PEN NEEDLE 42285285170 No Longer Active Bertrand Patel DO Active TRANSDERM-SCOP (1.5 MG) 1 MG/3DAYS TRANSDERMAL PATCH 7 2 HOUR 1 patch applied behind ear q 3 day SCOPOLAMINE BASE 03838717105 No Lo nger Active Bertrand Patel DO Active MACRODANTIN 100 MG ORAL CAPSULE one p.o. b.i.d. x2 weeks NITROFURANTOIN MACROCRYSTAL 18738524311 No Longer Active Bertrand Patel DO Active MACRODANTIN 100 MG ORAL CAPSULE one p.o. b.i.d. x2 weeks MACRODANTIN 100 MG ORAL CAPSULE 4175222 NITROFURANTOIN MACROCRYSTAL Inactive TRANSDERM-SCOP (1.5 MG) 1 [...] days PERMETHRIN 5 % EXTER NAL CREAM 380219 PERMETHRIN Inactive WELLBUTRIN 75 MG ORAL TABLET 2 times daily WELLBUTRIN 75 MG ORAL TABLET BUPROPION HCL Inactive CYMBALTA 30 MG ORAL CAPSULE DELAYED RELEASE PARTICLES 1 cap by mouth daily CYMBALTA 30 MG ORAL CAPSULE DELAYED RELE ASE PARTICLES 167163 DULOXETINE HCL Inactive AZITHROMYCIN 500 MG INTRAVENOUS SOLUTION RECONSTITUTED 1 po q da y AZITHROMYCIN 500 MG INTRAVENOUS SOLUTION RECONSTITUTED 99259 211074 AZITHROMYCIN Inactive CINNAMON ALPHA LIPOIC AC CMPLX CAPSULE by mouth twice a day in AM by mouth twice a day in PM CINNAMON ALPHA LIPOIC AC CMPLX CAPSULE ALPHA LIPOIC [id number] CAPS Inactive MICARDIS HCT 80-12.5 MG ORAL TABLET 1 qd 07/30 MICARDIS HCT 80-12.5 MG ORAL TABLET 601823 TELMISARTAN-HCTZ Inactive PRAVASTATIN SODIUM 20 MG ORAL TABLET 1 tablet by mouth daily at bedtime PRAVASTATIN SODIUM 20 MG ORAL TABLET 140508 PRAVASTATIN SODIUM Inactive FUROSEMIDE 20 MG ORAL TABLET 1 pill by mouth daily if needed for edema FUROSEMIDE 20 MG ORAL TABLET 413110 FUROSEMIDE Inactive METFORMIN HCL 500 MG ORAL TABLET 1 bid METFORMIN HCL 500 MG ORAL TABLET 722793 METFORMIN HCL Inactive B-12 1000 MCG ORAL CAPSULE 1 tab daily B -12 1000 MCG ORAL CAPSULE CYANOCOBALAMIN Inactive VITAMIN E 200 UNIT ORAL CAPSULE 1 cap po qd 1 VITAMIN E 200 UNIT ORAL CAPSULE 7481523 VITAMIN E Inactive [facility] MELATONIN 5-10 MG [...] po daily AZITHROMYCIN 250 MG ORAL TABLET 983811 AZITHROMY BERNARDO Inactive SYMBICORT 160-4.5 MCG/ACT INHALATION AEROSOL 2 puffs BID 9 SYMBICORT 160-4.5 MCG/ACT INHALATION AEROSOL 0328949 BUDESONID E-FORMOTEROL FUMARATE Inactive ALBUTEROL SULFATE (2.5 MG/3ML) 0.083% INHALATION NEBUL IZATION SOLUTION one vial per nebulizer every 4-6 hours as needed ALBUTEROL SULFATE (2.5 MG/3ML) 0.083% INHALATION NEBULIZATION SOLUTION 443283 ALBUTER OL SULFATE Inactive NEBULIZER use as directed NEBULIZER NEBULI ZERS Inactive TESSALON PERLES 100 MG ORAL CAPSULE 1 tablet by mouth 3 times da juan pablo TESSALON PERLES 100 MG ORAL CAPSULE 528144 BENZONATATE Inactive CYCLOBENZAPRINE HCL 10 MG ORAL TABLET Take 1 tab TID PRN for mus triston pain CYCLOBENZAPRINE HCL 10 MG ORAL TABLET 593956 CYCLOBENZA ANUJA HCL Inactive AUGMENTIN 875-125 MG ORAL TABLET 1 po BID x 10 days 20 18/04/06 AUGMENTIN 875-125 MG ORAL TABLET AMOXICILLIN-POT CLAVULANATE Inactive BACTROBAN 2 % EXTERNAL CREAM Apply to affected area BID for up to 10 days BACTROBAN 2 % EXTERNAL CREAM MUPIROCIN CA LCIUM Inactive VITAMIN D3 56350 UNIT ORAL CAPSULE 1 pill Week x 4 mo nths for vitamin D deficiency/osteoporosis VITAMIN D3 21889 UNIT ORAL CAPSULE CHOLECALCIFEROL Inactive BENZONATATE 200 MG ORAL CAPSULE 1 three times a day as neede d for cough BENZONATATE 200 MG ORAL CAPSULE 991621 BENZONATA TE Inactive ZITHROMAX Z-MARTIN 250 MG ORAL TABLET 2 today and then 1 daily for 4 days ZITHROMAX Z-MARTIN 250 MG ORAL TABLET 221446 AZITHR OMYCIN Inactive ADDERALL 10 MG ORAL TABLET 1 tab twice daily 2 ADDERALL 10 MG ORAL TABLET 872868 AMPHETAMINE-DEXTROAMPHETAMINE Inactive LEVAQUIN 500 MG ORAL TABLET 1 tablet by mouth daily 20 21/06/28 LEVAQUIN 500 MG ORAL TABLET 665030 LEVOFLOXACIN Inactive AMOXICILLIN 500 MG ORAL CAPSULE 2 po BID x 10 days 201 07/15/00 AMOXICILLIN 500 MG ORAL CAPSULE 315736 AMOXICILLIN Inactive AZITHROMYCIN 250 MG ORAL TABLET take 2 po today then take 1 po days 2-5 AZITHROMYCIN 250 MG ORAL TABLET 792717 AZITHROMY BERNARDO Inactive LEVAQUIN 500 MG ORAL TABLET 1 pill by mouth daily 2013 LEVAQUIN 500 MG ORAL TABLET 008932 LEVOFLOXACIN Inactive AUGMENTIN 875-125 MG ORAL TABLET [...] days 08/02 PREDNISONE 20 MG ORAL TABLET 619873 PREDNISONE Inactive CIPRO 500 MG ORAL TABLET 1 tablet by mouth twice daily CIPRO 500 MG ORAL TABLET 521774 CIPROFLOXACIN HCL Inactive DOXYCYCLINE HYCLATE 100 MG ORAL CAPSULE 1 cap by mouth twice jong ly DOXYCYCLINE HYCLATE 100 MG ORAL CAPSULE 3295499 DOXYCYCL INE HYCLATE Inactive PREDNISONE 20 MG ORAL TABLET Take 3 tabs for 3 days, t hen 2 tabs for 3 days, then 1 tab for 3 days PREDNISONE 20 MG ORAL TABLET 312 615 PREDNISONE Inactive CHERATUSSIN AC 100-10 MG/5ML ORAL SYRUP 5ml po q6hr PRN Cough 20 21/03/15 CHERATUSSIN AC 100-10 MG/5ML ORAL SYRUP 461001 GUAIFENE SIN-CODEINE Inactive Immunizations Vaccine Administration Date [...] 10*3/mm3 142-424 Lab Report: Comp. Metabolic Panel, [facility] - Chemistry sodium, serum 140 mmol/L [phone]/03/25 carbon dioxide, venous blood 33.2 mmol/L 21.0-32 [...] mg/dL 0.00-1.00 Lab Report: Comp. Metabolic Panel, [facility] - Lab Alkaline phosphatase 91 50-136 Lab [...] negative Strep Screen Lot Number (CLIA Waived) [id number] Strep Screen Exp Date (CLIA Waived) 05/02/2020 Encounters Code Encounter Date Provider Facility CPT-64163 Level 3 Est. Patient 14:45:47 CDT Lina elliott RESCUE INSTRUCTOR-C [facility] CPT-47357 [id number] Vst-Est Level III 16:58:04 CDT Me nae Vazquez [facility]-56099 [id number] Vst-Est Level IV 14:46:36 MEDICAL TECHNICIAN ASSISTANT Foster Patel [facility] CPT-97991 Level 3 Est. Patient 12:37:30 MEDICAL TECHNICIAN ASSISTANT Galilea Se [facility] CPT-43329 Level 3 Est. Patient 11:40:23 CDT Bertrand marquez [facility] CPT-67663 Level 4 Est. Patient 15:33:35 MEDICAL TECHNICIAN ASSISTANT Bertrand marquez [facility] CPT-27256 Level 4 Est. Patient 12:31:54 CDT Bertrand marquez [facility]-57182 Level 3 Est. Patient 11:27:00 MEDICAL TECHNICIAN ASSISTANT Ike Deluna MD [facility] CPT-78702 Level 3 Est. Patient 08:50:57 MEDICAL TECHNICIAN ASSISTANT Silvia Are ll [facility][note 3] CPT-91898 Level 3 Est. Patient 10:04:13 CDT Bertrand marquez [facility] CPT-11771 Level 4 Est. Patient 16:02:10 MEDICAL TECHNICIAN ASSISTANT Silvia Are ll [facility][note 3] CPT-20492 Level 3 Est. Patient 13:04:54 MEDICAL TECHNICIAN ASSISTANT Silvia Are [facility] CPT-14469 Level 3 Est. Patient 12:56:37 CDT Bertrand marquez [facility] CPT-57675 Level 3 Est. Patient 19:12:03 CDT Yoli tolbert MD PhD [facility] CPT-46715 Level 3 Est. Patient 14:36:01 CDT Yoli tolbert MD PhD [facility] CPT-87875 Level 2 Est. Patient 08:00:22 CDT Jcarlos dc MD [facility]-33919 Level 3 Est. Patient 19:06:55 CDT Bertrand marquez [facility] CPT-23861 Level 3 Est. Patient 10:08:23 MEDICAL TECHNICIAN ASSISTANT Bertrand marquez [facility] CPT-32098 Level 3 Est. Patient 16:37:54 MEDICAL TECHNICIAN ASSISTANT Bertrand marquez [facility] CPT-00552 Level 3 Est. Patient 11:31:59 MEDICAL TECHNICIAN ASSISTANT Bertrand marquez [facility] CPT-29510 Level 3 Est. Patient 10:20:08 CDT Adolfo Porfirioridge jacklyn [facility] CPT-71692 Level 3 Est. Patient 13:45:20 CDT Sanket buckley [facility] CPT-06656 Level 3 Est. Patient 12:51:06 CDT Adolfo Bertrand jacklyn [facility] CPT-80670 Level 3 Est. Patient 11:22:51 MEDICAL TECHNICIAN ASSISTANT Yoli tolbert MD PhD [facility] CPT-23631 Level 3 Est. Patient 13:33:19 CDT Bertrand marquez [facility] Procedures Code Procedure Name Date Entry Date Standard Desc ription CPT-89548 Sono abd valle iinc RUQ LUQ ascites search or pylorus - XRAY USE ONLY 09:11:06 CDT CPT-45431 Venipuncture Draw Fee 16:30:28 CDT CPT-[id number] (4274F) Influenza immunization administe red or previously received 15:55:57 CDT CPT-84718 Wound Culture - LAB USE ONLY 15:45:25 CDT 2 CPT-39749 Venipuncture Draw Fee 10:23:01 CDT CPT-J0696 Rocephin 1000 mg (Ceftriaxone) 16:20:30 MEDICAL TECHNICIAN ASSISTANT CPT-18988 Abx/Therapy Injection 16:20:29 MEDICAL TECHNICIAN ASSISTANT CPT-J0696 Rocephin 1gm Inj Solr 15:51:59 MEDICAL TECHNICIAN ASSISTANT CPT-80730 Chest 2V Frontal and Lat 15:20:28 MEDICAL TECHNICIAN ASSISTANT 07/22 CPT-74831 Breathing Tx 14:51:55 MEDICAL TECHNICIAN ASSISTANT CPT-85243 Breathing Tx 09:57:16 MEDICAL TECHNICIAN ASSISTANT CPT-68269 Knee comp 4/> V 11:58:06 MEDICAL TECHNICIAN ASSISTANT
--- OUTSIDE RECORDS SUMMARY | 2019-11-13 09:42 | XMS REPORT | Clinical Summary ---
Author Author Admin, Enrique Adamson Organization [employer] Address Unknown Phone Unavailable Allergies, Adverse Reactions, [...] URI - viral 465.9 Resolved Lina Maher LEATHER STRIPPING 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-C Acute upper respiratory infections of unspecified site Pharyngitis acute 462 Resolved Lina Maher LEATHER STRIPPING 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 -C Acute pharyngitis Abdominal pain, upper 789.09 Active Lina Maher A PRN-C Abdominal pain, other specified site; multiple sites Flank pain, left 789.09 Active Lina Maher LEATHER STRIPPING 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-C Abdominal pain, other specified site; multiple sites Morbid obesity due to excess calories 278.00 Resolved Lina Maher LEATHER STRIPPING 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-C Obesity, unspecified Other abnormal findings in urine Active 202 Lina Maher LEATHER STRIPPING 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-C Generalized colicky abdominal pain 789.07 Active 2 Lina Maher LEATHER STRIPPING 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-C Abdominal pain, generalized Nausea 787.02 [...] 09/09/28 EDEMA LEG ICD-782.3 Inactive Adele Feldman FAMILY INDEPENDENCE CASE MANAGER 201 01/01/02 SHORTNESS OF BREATH ICD-786.05 Inactive Yoli Mercado MD PhD RIB PAIN, RIGHT SIDED ICD-786.50 Inactive Yoli Mercado MD PhD KNEE PAIN, RIGHT ICD-719.46 Inactive Adele Esqueda ghn FAMILY INDEPENDENCE CASE MANAGER Knee pain, left ICD-719.46 Inactive Adele Holden hn FAMILY INDEPENDENCE CASE MANAGER Pharyngitis-Acute ICD-462 Inactive Bertrand Redmond DO Polyuria ICD-788.42 Inactive Yoli Mercado MD P hD Cellulitis, leg, right ICD-682.6 Inactive Yuki Deluna MD Foreign body, ear ICD-931 Inactive Yoli salazar MD PhD Fatigue ICD-780.79 Inactive Ike Deluna MD 201 12/01/06 Headache ICD-784.0 Inactive Adele Feldman FAMILY INDEPENDENCE CASE MANAGER 2017 Cough ICD-786.2 Inactive Adele Feldman FAMILY INDEPENDENCE CASE MANAGER 06/04 SINUSITIS, ACUTE ICD-461.9 Inactive Ike lange MD Fatigue ICD-780.79 Inactive Adele Feldman FAMILY INDEPENDENCE CASE MANAGER 2017 Bronchitis acute with bronchospasm ICD-466.0 I nactive Bertrand Patel DO Animal bite ICD-919.8 Inactive Adele Feldman LP N Mycoplasma infection ICD-041.81 Inactive Anit a Feldman FAMILY INDEPENDENCE CASE MANAGER Amenorrhea, secondary ICD-626.0 Inactive Ani ta Feldman FAMILY INDEPENDENCE CASE MANAGER Left maxillary sinusitis ICD-473.0 Inactive Bertrand Patel DO URI - viral ICD-465.9 Inactive Lina Maher LEATHER STRIPPING 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 -C Pharyngitis acute ICD-462 Inactive Lina elliott LEATHER STRIPPING 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-C Morbid obesity due to excess calories ICD-278.00 Inactive Carla ALBERTO Medication List Medication Instructions Start Date Stop Date Generic Name NDC Status Provider Patient Instruction ZOFRAN 4 MG ORAL TABLET 1 tablet by mouth every 6 hour PRN nausea 2 ONDANSETRON HCL 02159757258 Active Adriana Davalos RN Active CYCLOBENZAPRINE HCL 10 MG ORAL TABLET 1 tablet by mout h three times a day as needed for muscle spasm CYCLOBENZAPRINE HCL 75307147346 Ton BAZZI Active HYDROCODONE-ACETAMINOPHEN 7.5-325 MG TABS 1 TAB EVERY 6 HOUR S PRN FOR PAIN HYDROCODONE-ACETAMINOPHEN 27152855842 Active Bertrand Patel DO Active TELMISARTAN 80 MG TABS 1 TABLET PO DAILY FOR BLOOD PRESSURE TELMISARTAN 85507156557 Active Adriana Davalos RN Active MODAFINIL 200 MG TABS 1/2 TABLET PO IN THE AM AND 1/2 TABLET AT NOON MODAFINIL 56451201154 Active Adriana Davalos RN Activ e DULOXETINE HCL 60 MG CPEP 1 CAPSULE PO DAILY DU LOXETINE HCL 51525518645 Active Adriana Davalos RN Active AMLODIPINE 5MG 1 TABLET PO DAILY FOR BLOOD PRESSURE AMLODIPINE BESYLATE 49713235348 Active Adriana Davalos RN Active ALPRAZOLAM 0.5 MG TABS TAKE 1 TABLET BY MOUTH THREE TIMES DAILY 201 02/10/05 ALPRAZOLAM 10731298254 Active Adriana Davalos RN Active SUDAFED 12 HOUR 120 MG ORAL TABLET EXTENDED RELEASE 12 HOUR 1 pill twice daily if for congestion PSEUDOEPHEDRINE HCL 66096166671 Active Silvia Vazquez APRN Active CHERATUSSIN AC 100-10 MG/5ML ORAL SYRUP 5ml po q6hr PRN Cough 20 21/03/15 GUAIFENESIN-CODEINE 17538534257 No Longer Active Silvia Vazquez APRN Active FLUTICASONE PROPIONATE 50 MCG/ACT NASAL SUSPENSION 2 s prays per nostril daily for 2 weeks, then 1 spray each nostril PRN FLUTI CASONE PROPIONATE 15935751308 Active Silvia Vazquez APRN Active EVENING PRIMROSE OIL 1000 MG ORAL CAPSULE 1 capsule once daily EVENING PRIMROSE OIL 71486247254 Active Bertrand Patel DO Active LEVAQUIN 500 MG ORAL TABLET 1 tablet by mouth daily 20 21/06/28 LEVOFLOXACIN 05478531424 No Longer Active Bertrand Patel DO Active PREDNISONE 20 MG ORAL TABLET Take 3 tabs for 3 days, t hen 2 tabs for 3 days, then 1 tab for 3 days PREDNISONE 47534130761 No Rainer fatou Active Galilea Sell LEATHER STRIPPING 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 Active DOXYCYCLINE HYCLATE 100 MG ORAL CAPSULE 1 cap by mouth twice jong ly DOXYCYCLINE HYCLATE 01167762942 No Longer Active Galilea Sell LEATHER STRIPPING 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 Active ADDERALL 10 MG ORAL TABLET 1 tab twice daily 2 AMPHETAMINE-DEXTROAMPHETAMINE 73919617533 No Longer Active Nitza Phi llips Scribe Active ZITHROMAX Z-MARTIN 250 MG ORAL TABLET 2 today and then 1 daily for 4 days AZITHROMYCIN 55371264312 No Longer Active Nitza Osman lips Scribe Active BENZONATATE 200 MG ORAL CAPSULE 1 three times a day as neede d for cough BENZONATATE 18093153516 No Longer Active Nitza Osman lips Scribe Active VITAMIN D3 95836 UNIT ORAL CAPSULE 1 pill Week x 4 mo nths for vitamin D deficiency/osteoporosis CHOLECALCIFEROL 87200832979 N o Longer Active Layla Garcia Active BACTROBAN 2 % EXTERNAL CREAM Apply to affected area BID for up to 10 days MUPIROCIN CALCIUM 78462485432 No Longer Active Ike Deluna MD Active CIPRO 500 MG ORAL TABLET 1 tablet by mouth twice daily CIPROFLOXACIN HCL 82086432306 No Longer Active Adriana Bender LPN Active AUGMENTIN 875-125 MG ORAL TABLET 1 po BID x 10 days 20 18/04/06 AMOXICILLIN-POT CLAVULANATE 42445922032 No Longer Active Adriana Bender LPN Active CYCLOBENZAPRINE HCL 10 MG ORAL TABLET Take 1 tab TID PRN for mus triston pain CYCLOBENZAPRINE HCL 96047873105 No Longer Active Bertrand Patel DO Active TESSALON PERLES 100 MG ORAL CAPSULE 1 tablet by mouth 3 times da juan pablo BENZONATATE 87263799340 No Longer Active Bertrand Patel DO Ac tive NEBULIZER use as directed NEBULIZERS 12167449841 No Longer Active Bertrand Patel DO Active ALBUTEROL SULFATE (2.5 MG/3ML) 0.083% INHALATION NEBUL IZATION SOLUTION one vial per nebulizer every 4-6 hours as needed ALBUTERO L SULFATE 58117532960 No Longer Active Bertrand Patel DO Active SYMBICORT 160-4.5 MCG/ACT INHALATION AEROSOL 2 puffs BID 9 BUDESONIDE-FORMOTEROL FUMARATE 43575660134 No Longer Active Bertrand Patel DO Active PREDNISONE 20 MG ORAL TABLET take 3 tabs daily for 3 d ays, 2 tabs daily for 3 days, 1 tab daily for 3 days, 1/2 tab daily for 3 days 08/02 PREDNISONE 09458326604 No Longer Active Silvia Arell LEATHER STRIPPING 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 Active AZITHROMYCIN 250 MG ORAL TABLET Take 2 tabs po today then 1 tab po daily AZITHROMYCIN 15511466265 No Longer Active Silvia Arell LEATHER STRIPPING 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 Active AUGMENTIN 875-125 MG ORAL TABLET 1 po BID x 10 days 20 19/07/13 AMOXICILLIN-POT CLAVULANATE 34785633906 No Longer Active Adriana Bender LPN Active CHEWABLE CALCIUM 500-200-40 MG-UNT-MCG ORAL TABLET CHEWABLE 1 chew tab bid CALCIUM-VITAMIN D-VITAMIN K 36347849317 Active Silvia Are ll LEATHER STRIPPING 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 Active EQ COMPLETE MULTIVIT ADULT 50+ ORAL TABLET 1 tab po bid MULTIPLE VITAMINS-MINERALS 91211677970 Active Silvia Arell LEATHER STRIPPING 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 Active LORTAB 7.5-500 MG ORAL TABLET take one po Q6 hours 201 09/12/01 HYDROCODONE-ACETAMINOPHEN 88734757037 No Longer Active Nirmal Robbins RN Active [facility] MELATONIN 5-10 MG ORAL TABLET EXTENDED RELEASE Jair e one by mouth daily at bedtime MELATONIN-PYRIDOXINE 56485392820 No Longer Acti ve Bertrand Patel DO Active VITAMIN E 200 UNIT ORAL CAPSULE 1 cap po qd VITAM IN E 45990516743 No Longer Active Bertrand W Jorge DO Active B-12 1000 MCG ORAL CAPSULE 1 tab daily CYANOCOB ALAMIN 18404258274 No Longer Active Bertrand Patel DO Active METFORMIN HCL 500 MG ORAL TABLET 1 bid METFOR MIN HCL 16299933100 No Longer Active Bertrand Patel DO Active FUROSEMIDE 20 MG ORAL TABLET 1 pill by mouth daily if needed for edema FUROSEMIDE 84559227031 No Longer Active Bertrand Patel DO Active PRAVASTATIN SODIUM 20 MG ORAL TABLET 1 tablet by mouth daily at bedtime PRAVASTATIN SODIUM 20275704616 No Longer Active Bertrand Patel DO Active AUGMENTIN 875-125 MG ORAL TABLET 1 pill by mouth twice daily 201 09/10/00 AMOXICILLIN-POT CLAVULANATE 07078262117 No Longer Active Yoli Mercado MD PhD Active LEVAQUIN 500 MG ORAL TABLET 1 pill by mouth daily 2013 LEVOFLOXACIN 76294202368 No Longer Active Yoli Mercado MD PhD Acti ve MICARDIS 80 MG ORAL TABLET 1 tablet daily for blood pressure 07/30 TELMISARTAN 04061105455 Active Adriana Davalos RN Active MICARDIS HCT 80-12.5 MG ORAL TABLET 1 qd TELMISARTAN-HCTZ 22404338785 No Longer Active Bertrand Patel DO Active CINNAMON ALPHA LIPOIC AC CMPLX CAPSULE by mouth twice a day in AM by mouth twice a day in PM ALPHA LIPOIC [id number] CA PS 83588024313 No Longer Active Bertrand Patel DO Active AZITHROMYCIN 500 MG INTRAVENOUS SOLUTION RECONSTITUTED 1 po q da y AZITHROMYCIN 62689356981 No Longer Active Bertrand Patel DO A ctive CYMBALTA 30 MG ORAL CAPSULE DELAYED RELEASE PARTICLES 1 cap by mouth daily DULOXETINE HCL 28859646569 No Longer Active Bertrand marquez DO Active CYMBALTA 60 MG ORAL CAPSULE DELAYED RELEASE PARTICLES 1 cap by mouth daily DULOXETINE HCL 50349140851 Active Adriana Davalos RN Active WELLBUTRIN 75 MG ORAL TABLET 2 times daily BUPR OPION HCL 93066187266 No Longer Active Bertrand Patel DO Active PROAIR HFA 108 (90 Base) MCG/ACT INHALATION AEROSOL SO LUTION take one to two puffs po Q4-6 hour prn cough and shortness of breath ALBUTEROL SULFATE 35020660062 Active Bertrand Patel DO Active AZITHROMYCIN 250 MG ORAL TABLET take 2 po today then take 1 po days 2-5 AZITHROMYCIN 30560854864 No Longer Active Adolfo OSORIO Active PERMETHRIN 5 % EXTERNAL CREAM apply neck to toes tonig ht and then rinse off in morning. repeat at 7 days PERMETHRIN 54889041307 No Longer Active Adolfo OSORIO Active AMOXICILLIN 500 MG ORAL CAPSULE 2 po BID x 10 days 201 07/15/00 AMOXICILLIN 19227052282 No Longer Active Yoli Mercado MD PhD Acti ve INSUPEN ULTRAFIN 31G X 6 MM USE DIRECTED INSULIN PEN NEEDLE 42739009578 No Longer Active Bertrand Patel DO Active TRANSDERM-SCOP (1.5 MG) 1 MG/3DAYS TRANSDERMAL PATCH 7 2 HOUR 1 patch applied behind ear q 3 day SCOPOLAMINE BASE 23428450773 No Lo nger Active Bertrand Patel DO Active MACRODANTIN 100 MG ORAL CAPSULE one p.o. b.i.d. x2 weeks NITROFURANTOIN MACROCRYSTAL 18753501679 No Longer Active Bertrand Patel DO Active MACRODANTIN 100 MG ORAL CAPSULE one p.o. b.i.d. x2 weeks MACRODANTIN 100 MG ORAL CAPSULE 5186587 NITROFURANTOIN MACROCRYSTAL Inactive TRANSDERM-SCOP (1.5 MG) 1 [...] days PERMETHRIN 5 % EXTER NAL CREAM 415395 PERMETHRIN Inactive WELLBUTRIN 75 MG ORAL TABLET 2 times daily WELLBUTRIN 75 MG ORAL TABLET BUPROPION HCL Inactive CYMBALTA 30 MG ORAL CAPSULE DELAYED RELEASE PARTICLES 1 cap by mouth daily CYMBALTA 30 MG ORAL CAPSULE DELAYED RELE ASE PARTICLES 911835 DULOXETINE HCL Inactive AZITHROMYCIN 500 MG INTRAVENOUS SOLUTION RECONSTITUTED 1 po q da y AZITHROMYCIN 500 MG INTRAVENOUS SOLUTION RECONSTITUTED 42324 901216 AZITHROMYCIN Inactive CINNAMON ALPHA LIPOIC AC CMPLX CAPSULE by mouth twice a day in AM by mouth twice a day in PM CINNAMON ALPHA LIPOIC AC CMPLX CAPSULE ALPHA LIPOIC [id number] CAPS Inactive MICARDIS HCT 80-12.5 MG ORAL TABLET 1 qd 07/30 MICARDIS HCT 80-12.5 MG ORAL TABLET 697994 TELMISARTAN-HCTZ Inactive PRAVASTATIN SODIUM 20 MG ORAL TABLET 1 tablet by mouth daily at bedtime PRAVASTATIN SODIUM 20 MG ORAL TABLET 635181 PRAVASTATIN SODIUM Inactive FUROSEMIDE 20 MG ORAL TABLET 1 pill by mouth daily if needed for edema FUROSEMIDE 20 MG ORAL TABLET 441505 FUROSEMIDE Inactive METFORMIN HCL 500 MG ORAL TABLET 1 bid METFORMIN HCL 500 MG ORAL TABLET 383356 METFORMIN HCL Inactive B-12 1000 MCG ORAL CAPSULE 1 tab daily B -12 1000 MCG ORAL CAPSULE CYANOCOBALAMIN Inactive VITAMIN E 200 UNIT ORAL CAPSULE 1 cap po qd 1 VITAMIN E 200 UNIT ORAL CAPSULE 5001701 VITAMIN E Inactive [facility] MELATONIN 5-10 MG [...] po daily AZITHROMYCIN 250 MG ORAL TABLET 011458 AZITHROMY BERNARDO Inactive SYMBICORT 160-4.5 MCG/ACT INHALATION AEROSOL 2 puffs BID 9 SYMBICORT 160-4.5 MCG/ACT INHALATION AEROSOL 7297460 BUDESONID E-FORMOTEROL FUMARATE Inactive ALBUTEROL SULFATE (2.5 MG/3ML) 0.083% INHALATION NEBUL IZATION SOLUTION one vial per nebulizer every 4-6 hours as needed ALBUTEROL SULFATE (2.5 MG/3ML) 0.083% INHALATION NEBULIZATION SOLUTION 984528 ALBUTER OL SULFATE Inactive NEBULIZER use as directed NEBULIZER NEBULI ZERS Inactive TESSALON PERLES 100 MG ORAL CAPSULE 1 tablet by mouth 3 times da juan pablo TESSALON PERLES 100 MG ORAL CAPSULE 248973 BENZONATATE Inactive CYCLOBENZAPRINE HCL 10 MG ORAL TABLET Take 1 tab TID PRN for mus triston pain CYCLOBENZAPRINE HCL 10 MG ORAL TABLET 079369 CYCLOBENZA ANUJA HCL Inactive AUGMENTIN 875-125 MG ORAL TABLET 1 po BID x 10 days 20 18/04/06 AUGMENTIN 875-125 MG ORAL TABLET AMOXICILLIN-POT CLAVULANATE Inactive BACTROBAN 2 % EXTERNAL CREAM Apply to affected area BID for up to 10 days BACTROBAN 2 % EXTERNAL CREAM MUPIROCIN CA LCIUM Inactive VITAMIN D3 51749 UNIT ORAL CAPSULE 1 pill Week x 4 mo nths for vitamin D deficiency/osteoporosis VITAMIN D3 44092 UNIT ORAL CAPSULE CHOLECALCIFEROL Inactive BENZONATATE 200 MG ORAL CAPSULE 1 three times a day as neede d for cough BENZONATATE 200 MG ORAL CAPSULE 301842 BENZONATA TE Inactive ZITHROMAX Z-MARTIN 250 MG ORAL TABLET 2 today and then 1 daily for 4 days ZITHROMAX Z-MARTIN 250 MG ORAL TABLET 645497 AZITHR OMYCIN Inactive ADDERALL 10 MG ORAL TABLET 1 tab twice daily 2 ADDERALL 10 MG ORAL TABLET 026917 AMPHETAMINE-DEXTROAMPHETAMINE Inactive LEVAQUIN 500 MG ORAL TABLET 1 tablet by mouth daily 20 21/06/28 LEVAQUIN 500 MG ORAL TABLET 946099 LEVOFLOXACIN Inactive AMOXICILLIN 500 MG ORAL CAPSULE 2 po BID x 10 days 201 07/15/00 AMOXICILLIN 500 MG ORAL CAPSULE 990801 AMOXICILLIN Inactive AZITHROMYCIN 250 MG ORAL TABLET take 2 po today then take 1 po days 2-5 AZITHROMYCIN 250 MG ORAL TABLET 693874 AZITHROMY BERNARDO Inactive LEVAQUIN 500 MG ORAL TABLET 1 pill by mouth daily 2013 LEVAQUIN 500 MG ORAL TABLET 817086 LEVOFLOXACIN Inactive AUGMENTIN 875-125 MG ORAL TABLET [...] days 08/02 PREDNISONE 20 MG ORAL TABLET 704499 PREDNISONE Inactive CIPRO 500 MG ORAL TABLET 1 tablet by mouth twice daily CIPRO 500 MG ORAL TABLET 517778 CIPROFLOXACIN HCL Inactive DOXYCYCLINE HYCLATE 100 MG ORAL CAPSULE 1 cap by mouth twice jong ly DOXYCYCLINE HYCLATE 100 MG ORAL CAPSULE 6894345 DOXYCYCL INE HYCLATE Inactive PREDNISONE 20 MG ORAL TABLET Take 3 tabs for 3 days, t hen 2 tabs for 3 days, then 1 tab for 3 days PREDNISONE 20 MG ORAL TABLET 312 615 PREDNISONE Inactive CHERATUSSIN AC 100-10 MG/5ML ORAL SYRUP 5ml po q6hr PRN Cough 20 21/03/15 CHERATUSSIN AC 100-10 MG/5ML ORAL SYRUP 317328 GUAIFENE SIN-CODEINE Inactive Immunizations Vaccine Administration Date [...] 10*3/mm3 142-424 Lab Report: Comp. Metabolic Panel, [facility] - Chemistry sodium, serum 140 mmol/L 550-386 7873/03/25 carbon dioxide, venous blood 33.2 mmol/L 21.0-32 [...] mg/dL 0.00-1.00 Lab Report: Comp. Metabolic Panel, [facility] - Lab Alkaline phosphatase 91 50-136 Lab [...] negative Strep Screen Lot Number (CLIA Waived) [id number] Strep Screen Exp Date (CLIA Waived) 05/02/2020 Encounters Code Encounter Date Provider Facility CPT-08225 Level 3 Est. Patient 14:45:47 CDT Lina elliott LEATHER STRIPPING 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-C [facility] CPT-25600 [id number] Vst-Est Level III 16:58:04 CDT Me nae Vazquez [facility] [id number] [id number] Vst-Est Level IV 14:46:36 FEED MANAGEMENT ADVISOR Foster Patel [facility] CPT-85229 Level 3 Est. Patient 12:37:30 FEED MANAGEMENT ADVISOR Galilea Se [facility] CPT-62323 Level 3 Est. Patient 11:40:23 CDT Bertrand marquez [facility] CPT-86713 Level 4 Est. Patient 15:33:35 FEED MANAGEMENT ADVISOR Bertrand marquez [facility] CPT-58637 Level 4 Est. Patient 12:31:54 CDT Bertrand marquez [facility]-85549 Level 3 Est. Patient 11:27:00 FEED MANAGEMENT ADVISOR Ike Deluna MD [facility] CPT-85237 Level 3 Est. Patient 08:50:57 FEED MANAGEMENT ADVISOR Silvia Are ll [facility] CPT-42856 Level 3 Est. Patient 10:04:13 CDT Bertrand marquez [facility] CPT-03504 Level 4 Est. Patient 16:02:10 FEED MANAGEMENT ADVISOR Silvia Are ll [facility] CPT-76368 Level 3 Est. Patient 13:04:54 FEED MANAGEMENT ADVISOR Silvia Are [facility] CPT-04913 Level 3 Est. Patient 12:56:37 CDT Bertrand marquez [facility] CPT-22717 Level 3 Est. Patient 19:12:03 CDT Yoli tolbert MD PhD [facility] CPT-92148 Level 3 Est. Patient 14:36:01 CDT Yoli tolbert MD PhD [facility] CPT-43297 Level 2 Est. Patient 08:00:22 CDT Jcarlos dc MD [facility]-91437 Level 3 Est. Patient 19:06:55 CDT Bertrand marquez [facility] CPT-83537 Level 3 Est. Patient 10:08:23 FEED MANAGEMENT ADVISOR Bertrand marquez [facility] CPT-87540 Level 3 Est. Patient 16:37:54 FEED MANAGEMENT ADVISOR Bertrand marquez [facility] CPT-60126 Level 3 Est. Patient 11:31:59 FEED MANAGEMENT ADVISOR Bertrand marquez [facility] CPT-09530 Level 3 Est. Patient 10:20:08 CDT Adolfo Porfirioridge jacklyn [facility] CPT-06675 Level 3 Est. Patient 13:45:20 CDT Sanket buckley [facility] CPT-58037 Level 3 Est. Patient 12:51:06 CDT Adolfo Bertrand jacklyn [facility] CPT-98282 Level 3 Est. Patient 11:22:51 FEED MANAGEMENT ADVISOR Yoli tolbert MD PhD [facility] CPT-62082 Level 3 Est. Patient 13:33:19 CDT Bertrand marquez [facility] Procedures Code Procedure Name Date Entry Date Standard Desc ription CPT-93130 Sono abd valle iinc RUQ LUQ ascites search or pylorus - XRAY USE ONLY 09:11:06 CDT CPT-57786 Venipuncture Draw Fee 16:30:28 CDT CPT-GL0125Y (4274F) Influenza immunization administe red or previously received 15:55:57 CDT CPT-00934 Wound Culture - LAB USE ONLY 15:45:25 CDT 2 CPT-72814 Venipuncture Draw Fee 10:23:01 CDT CPT-J0696 Rocephin 1000 mg (Ceftriaxone) 16:20:30 FEED MANAGEMENT ADVISOR CPT-26395 Abx/Therapy Injection 16:20:29 FEED MANAGEMENT ADVISOR CPT-J0696 Rocephin 1gm Inj Solr 15:51:59 FEED MANAGEMENT ADVISOR CPT-89618 Chest 2V Frontal and Lat 15:20:28 FEED MANAGEMENT ADVISOR 07/22 CPT-68375 Breathing Tx 14:51:55 FEED MANAGEMENT ADVISOR CPT-14928 Breathing Tx 09:57:16 FEED MANAGEMENT ADVISOR CPT-10502 Knee comp 4/> V 11:58:06 FEED MANAGEMENT ADVISOR
--- OUTSIDE RECORDS SUMMARY | 2019-11-13 09:42 | XMS REPORT | Clinical Summary ---
Author Author Admin, Enrique Adamson Organization [employer] Address Unknown Phone Unavailable Allergies, Adverse Reactions, [...] URI - viral 465.9 Resolved Lina Maher APPLICATION SUPPORT MANAGER-C Acute upper respiratory infections of unspecified site Pharyngitis acute 462 Resolved Lina Maher APPLICATION SUPPORT MANAGER -C Acute pharyngitis Abdominal pain, upper 789.09 Active Lina Maher A PRN-C Abdominal pain, other specified site; multiple sites Flank pain, left 789.09 Active Lina Maher APPLICATION SUPPORT MANAGER-C Abdominal pain, other specified site; multiple sites Morbid obesity due to excess calories 278.00 Resolved Lina Maher APPLICATION SUPPORT MANAGER-C Obesity, unspecified Other abnormal findings in urine Active 202 Lina Maher APPLICATION SUPPORT MANAGER-C Generalized colicky abdominal pain 789.07 Active 2 Lina Maher APPLICATION SUPPORT MANAGER-C Abdominal pain, generalized Nausea 787.02 Active Lina [...] 09/09/28 EDEMA LEG ICD-782.3 Inactive Adele Feldman WAITER/WAITRESS ROOM SERVICE 201 01/01/02 SHORTNESS OF BREATH ICD-786.05 Inactive Yoli Mercado MD PhD RIB PAIN, RIGHT SIDED ICD-786.50 Inactive Yoli Mercado MD PhD KNEE PAIN, RIGHT ICD-719.46 Inactive Adele Esqueda ghn WAITER/WAITRESS ROOM SERVICE Knee pain, left ICD-719.46 Inactive Adele Holden hn WAITER/WAITRESS ROOM SERVICE Pharyngitis-Acute ICD-462 Inactive Bertrand Redmond DO Polyuria ICD-788.42 Inactive Yoli Mercado MD P hD Cellulitis, leg, right ICD-682.6 Inactive Yuki Deluna MD Foreign body, ear ICD-931 Inactive Yoli salazar MD PhD Fatigue ICD-780.79 Inactive Ike Deluna MD 201 12/01/06 Headache ICD-784.0 Inactive Adele Feldman WAITER/WAITRESS ROOM SERVICE 2017 Cough ICD-786.2 Inactive Adele Feldman WAITER/WAITRESS ROOM SERVICE 06/04 SINUSITIS, ACUTE ICD-461.9 Inactive Ike lange MD Fatigue ICD-780.79 Inactive Adele Feldman WAITER/WAITRESS ROOM SERVICE 2017 Bronchitis acute with bronchospasm ICD-466.0 I nactive Bertrand Patel DO Animal bite ICD-919.8 Inactive Adele Feldman LP N Mycoplasma infection ICD-041.81 Inactive Anit a Feldman WAITER/WAITRESS ROOM SERVICE Amenorrhea, secondary ICD-626.0 Inactive Ani ta Feldman WAITER/WAITRESS ROOM SERVICE Left maxillary sinusitis ICD-473.0 Inactive Bertrand Patel DO URI - viral ICD-465.9 Inactive Lina Maher APPLICATION SUPPORT MANAGER -C Pharyngitis acute ICD-462 Inactive Lina elliott APPLICATION SUPPORT MANAGER-C Morbid obesity due to excess calories ICD-278.00 Inactive Carla ALBERTO Medication List Medication Instructions Start Date Stop Date Generic Name NDC Status Provider Patient Instruction ZOFRAN 4 MG ORAL TABLET 1 tablet by mouth every 6 hour PRN nausea 2 ONDANSETRON HCL 00498406858 Active Adriana Davalos RN Active CYCLOBENZAPRINE HCL 10 MG ORAL TABLET 1 tablet by mout h three times a day as needed for muscle spasm CYCLOBENZAPRINE HCL 13789692367 Ton BAZZI Active HYDROCODONE-ACETAMINOPHEN 7.5-325 MG TABS 1 TAB EVERY 6 HOUR S PRN FOR PAIN HYDROCODONE-ACETAMINOPHEN 19866186725 Active Bertrand Patel DO Active TELMISARTAN 80 MG TABS 1 TABLET PO DAILY FOR BLOOD PRESSURE TELMISARTAN 98939291511 Active Adriana Davalos RN Active MODAFINIL 200 MG TABS 1/2 TABLET PO IN THE AM AND 1/2 TABLET AT NOON MODAFINIL 73964559928 Active Adriana Davalos RN Activ e DULOXETINE HCL 60 MG CPEP 1 CAPSULE PO DAILY DU LOXETINE HCL 51241947470 Active Adriana Davalos RN Active AMLODIPINE 5MG 1 TABLET PO DAILY FOR BLOOD PRESSURE AMLODIPINE BESYLATE 57892869402 Active Adriana Davalos RN Active ALPRAZOLAM 0.5 MG TABS TAKE 1 TABLET BY MOUTH THREE TIMES DAILY 201 02/10/05 ALPRAZOLAM 51286654737 Active Adriana Davalos RN Active SUDAFED 12 HOUR 120 MG ORAL TABLET EXTENDED RELEASE 12 HOUR 1 pill twice daily if for congestion PSEUDOEPHEDRINE HCL 36228129908 Active Silvia Vazquez APRN Active CHERATUSSIN AC 100-10 MG/5ML ORAL SYRUP 5ml po q6hr PRN Cough 20 21/03/15 GUAIFENESIN-CODEINE 37158931964 No Longer Active Silvia Vazquez APRN Active FLUTICASONE PROPIONATE 50 MCG/ACT NASAL SUSPENSION 2 s prays per nostril daily for 2 weeks, then 1 spray each nostril PRN FLUTI CASONE PROPIONATE 72964935788 Active Silvia Vazquez APRN Active EVENING PRIMROSE OIL 1000 MG ORAL CAPSULE 1 capsule once daily EVENING PRIMROSE OIL 04301136281 Active Bertrand Patel DO Active LEVAQUIN 500 MG ORAL TABLET 1 tablet by mouth daily 20 21/06/28 LEVOFLOXACIN 11286122355 No Longer Active Bertrand Patel DO Active PREDNISONE 20 MG ORAL TABLET Take 3 tabs for 3 days, t hen 2 tabs for 3 days, then 1 tab for 3 days PREDNISONE 63406862216 No Rainer fatou Active Galilea Sell APPLICATION SUPPORT MANAGER Active DOXYCYCLINE HYCLATE 100 MG ORAL CAPSULE 1 cap by mouth twice jong ly DOXYCYCLINE HYCLATE 51884948895 No Longer Active Galilea Sell APPLICATION SUPPORT MANAGER Active ADDERALL 10 MG ORAL TABLET 1 tab twice daily 2 AMPHETAMINE-DEXTROAMPHETAMINE 51319861032 No Longer Active Nitza Phi llips Scribe Active ZITHROMAX Z-MARTIN 250 MG ORAL TABLET 2 today and then 1 daily for 4 days AZITHROMYCIN 54703806965 No Longer Active Nitza Osman lips Scribe Active BENZONATATE 200 MG ORAL CAPSULE 1 three times a day as neede d for cough BENZONATATE 92061817686 No Longer Active Nitza Osman lips Scribe Active VITAMIN D3 11856 UNIT ORAL CAPSULE 1 pill Week x 4 mo nths for vitamin D deficiency/osteoporosis CHOLECALCIFEROL 44761061808 N o Longer Active Layla Garcia Active BACTROBAN 2 % EXTERNAL CREAM Apply to affected area BID for up to 10 days MUPIROCIN CALCIUM 22870624483 No Longer Active Ike Deluna MD Active CIPRO 500 MG ORAL TABLET 1 tablet by mouth twice daily CIPROFLOXACIN HCL 52493274872 No Longer Active Adriana Bender LPN Active AUGMENTIN 875-125 MG ORAL TABLET 1 po BID x 10 days 20 18/04/06 AMOXICILLIN-POT CLAVULANATE 42404019883 No Longer Active Adriana Bender LPN Active CYCLOBENZAPRINE HCL 10 MG ORAL TABLET Take 1 tab TID PRN for mus triston pain CYCLOBENZAPRINE HCL 63589373732 No Longer Active Bertrand Patel DO Active TESSALON PERLES 100 MG ORAL CAPSULE 1 tablet by mouth 3 times da juan pablo BENZONATATE 90250348630 No Longer Active Bertrand Patel DO Ac tive NEBULIZER use as directed NEBULIZERS 00757986153 No Longer Active Bertrand Patel DO Active ALBUTEROL SULFATE (2.5 MG/3ML) 0.083% INHALATION NEBUL IZATION SOLUTION one vial per nebulizer every 4-6 hours as needed ALBUTERO L SULFATE 13562850703 No Longer Active Bertrand Patel DO Active SYMBICORT 160-4.5 MCG/ACT INHALATION AEROSOL 2 puffs BID 9 BUDESONIDE-FORMOTEROL FUMARATE 74845967686 No Longer Active Bertrand Patel DO Active PREDNISONE 20 MG ORAL TABLET take 3 tabs daily for 3 d ays, 2 tabs daily for 3 days, 1 tab daily for 3 days, 1/2 tab daily for 3 days 08/02 PREDNISONE 99091857676 No Longer Active Silvia Arell APPLICATION SUPPORT MANAGER Active AZITHROMYCIN 250 MG ORAL TABLET Take 2 tabs po today then 1 tab po daily AZITHROMYCIN 29199595722 No Longer Active Silvia Arell APPLICATION SUPPORT MANAGER Active AUGMENTIN 875-125 MG ORAL TABLET 1 po BID x 10 days 20 19/07/13 AMOXICILLIN-POT CLAVULANATE 30357644396 No Longer Active Adriana Bender LPN Active CHEWABLE CALCIUM 500-200-40 MG-UNT-MCG ORAL TABLET CHEWABLE 1 chew tab bid CALCIUM-VITAMIN D-VITAMIN K 53984430218 Active Silvia Are ll APPLICATION SUPPORT MANAGER Active EQ COMPLETE MULTIVIT ADULT 50+ ORAL TABLET 1 tab po bid MULTIPLE VITAMINS-MINERALS 84433666930 Active Silvia Arell APPLICATION SUPPORT MANAGER Active LORTAB 7.5-500 MG ORAL TABLET take one po Q6 hours 201 09/12/01 HYDROCODONE-ACETAMINOPHEN 14897243970 No Longer Active Nirmal Robbins RN Active [facility] MELATONIN 5-10 MG ORAL TABLET EXTENDED RELEASE Jair e one by mouth daily at bedtime MELATONIN-PYRIDOXINE 11853925363 No Longer Acti ve Bertrand Patel DO Active VITAMIN E 200 UNIT ORAL CAPSULE 1 cap po qd VITAM IN E 07179349744 No Longer Active Bertrand W Jorge DO Active B-12 1000 MCG ORAL CAPSULE 1 tab daily CYANOCOB ALAMIN 76546592365 No Longer Active Bertrand Patel DO Active METFORMIN HCL 500 MG ORAL TABLET 1 bid METFOR MIN HCL 44557832791 No Longer Active Bertrand Patel DO Active FUROSEMIDE 20 MG ORAL TABLET 1 pill by mouth daily if needed for edema FUROSEMIDE 88225174347 No Longer Active Bertrand Patel DO Active PRAVASTATIN SODIUM 20 MG ORAL TABLET 1 tablet by mouth daily at bedtime PRAVASTATIN SODIUM 07142880135 No Longer Active Bertrand Patel DO Active AUGMENTIN 875-125 MG ORAL TABLET 1 pill by mouth twice daily 201 09/10/00 AMOXICILLIN-POT CLAVULANATE 75146392663 No Longer Active Yoli Mercado MD PhD Active LEVAQUIN 500 MG ORAL TABLET 1 pill by mouth daily 2013 LEVOFLOXACIN 72458145981 No Longer Active Yoli Mercado MD PhD Acti ve MICARDIS 80 MG ORAL TABLET 1 tablet daily for blood pressure 07/30 TELMISARTAN 13442787524 Active Adriana Davalos RN Active MICARDIS HCT 80-12.5 MG ORAL TABLET 1 qd TELMISARTAN-HCTZ 50282313339 No Longer Active Bertrand Patel DO Active CINNAMON ALPHA LIPOIC AC CMPLX CAPSULE by mouth twice a day in AM by mouth twice a day in PM ALPHA LIPOIC [id number] CA PS 70458100284 No Longer Active Bertrand Patel DO Active AZITHROMYCIN 500 MG INTRAVENOUS SOLUTION RECONSTITUTED 1 po q da y AZITHROMYCIN 19946132653 No Longer Active Bertrand Patel DO A ctive CYMBALTA 30 MG ORAL CAPSULE DELAYED RELEASE PARTICLES 1 cap by mouth daily DULOXETINE HCL 27771613916 No Longer Active Bertrand marquez DO Active CYMBALTA 60 MG ORAL CAPSULE DELAYED RELEASE PARTICLES 1 cap by mouth daily DULOXETINE HCL 67654974910 Active Adriana Davalos RN Active WELLBUTRIN 75 MG ORAL TABLET 2 times daily BUPR OPION HCL 99485975076 No Longer Active Bertrand Patel DO Active PROAIR HFA 108 (90 Base) MCG/ACT INHALATION AEROSOL SO LUTION take one to two puffs po Q4-6 hour prn cough and shortness of breath ALBUTEROL SULFATE 74111991503 Active Bertrand Patel DO Active AZITHROMYCIN 250 MG ORAL TABLET take 2 po today then take 1 po days 2-5 AZITHROMYCIN 00235203618 No Longer Active Adolfo OSORIO Active PERMETHRIN 5 % EXTERNAL CREAM apply neck to toes tonig ht and then rinse off in morning. repeat at 7 days PERMETHRIN 15273582800 No Longer Active Adolfo OSORIO Active AMOXICILLIN 500 MG ORAL CAPSULE 2 po BID x 10 days 201 07/15/00 AMOXICILLIN 26341737392 No Longer Active Yoli Mercado MD PhD Acti ve INSUPEN ULTRAFIN 31G X 6 MM USE DIRECTED INSULIN PEN NEEDLE 60484717186 No Longer Active Bertrand Patel DO Active TRANSDERM-SCOP (1.5 MG) 1 MG/3DAYS TRANSDERMAL PATCH 7 2 HOUR 1 patch applied behind ear q 3 day SCOPOLAMINE BASE 22293760604 No Lo nger Active Bertrand Patel DO Active MACRODANTIN 100 MG ORAL CAPSULE one p.o. b.i.d. x2 weeks NITROFURANTOIN MACROCRYSTAL 03384581346 No Longer Active Bertrand Patel DO Active MACRODANTIN 100 MG ORAL CAPSULE one p.o. b.i.d. x2 weeks MACRODANTIN 100 MG ORAL CAPSULE 5232217 NITROFURANTOIN MACROCRYSTAL Inactive TRANSDERM-SCOP (1.5 MG) 1 [...] days PERMETHRIN 5 % EXTER NAL CREAM 046467 PERMETHRIN Inactive WELLBUTRIN 75 MG ORAL TABLET 2 times daily WELLBUTRIN 75 MG ORAL TABLET BUPROPION HCL Inactive CYMBALTA 30 MG ORAL CAPSULE DELAYED RELEASE PARTICLES 1 cap by mouth daily CYMBALTA 30 MG ORAL CAPSULE DELAYED RELE ASE PARTICLES 299903 DULOXETINE HCL Inactive AZITHROMYCIN 500 MG INTRAVENOUS SOLUTION RECONSTITUTED 1 po q da y AZITHROMYCIN 500 MG INTRAVENOUS SOLUTION RECONSTITUTED 35578 554031 AZITHROMYCIN Inactive CINNAMON ALPHA LIPOIC AC CMPLX CAPSULE by mouth twice a day in AM by mouth twice a day in PM CINNAMON ALPHA LIPOIC AC CMPLX CAPSULE ALPHA LIPOIC [id number] CAPS Inactive MICARDIS HCT 80-12.5 MG ORAL TABLET 1 qd 07/30 MICARDIS HCT 80-12.5 MG ORAL TABLET 367356 TELMISARTAN-HCTZ Inactive PRAVASTATIN SODIUM 20 MG ORAL TABLET 1 tablet by mouth daily at bedtime PRAVASTATIN SODIUM 20 MG ORAL TABLET 000908 PRAVASTATIN SODIUM Inactive FUROSEMIDE 20 MG ORAL TABLET 1 pill by mouth daily if needed for edema FUROSEMIDE 20 MG ORAL TABLET 085001 FUROSEMIDE Inactive METFORMIN HCL 500 MG ORAL TABLET 1 bid METFORMIN HCL 500 MG ORAL TABLET 239407 METFORMIN HCL Inactive B-12 1000 MCG ORAL CAPSULE 1 tab daily B -12 1000 MCG ORAL CAPSULE CYANOCOBALAMIN Inactive VITAMIN E 200 UNIT ORAL CAPSULE 1 cap po qd 1 VITAMIN E 200 UNIT ORAL CAPSULE 1823530 VITAMIN E Inactive [facility] MELATONIN 5-10 MG [...] po daily AZITHROMYCIN 250 MG ORAL TABLET 769299 AZITHROMY BERNARDO Inactive SYMBICORT 160-4.5 MCG/ACT INHALATION AEROSOL 2 puffs BID 9 SYMBICORT 160-4.5 MCG/ACT INHALATION AEROSOL 6933050 BUDESONID E-FORMOTEROL FUMARATE Inactive ALBUTEROL SULFATE (2.5 MG/3ML) 0.083% INHALATION NEBUL IZATION SOLUTION one vial per nebulizer every 4-6 hours as needed ALBUTEROL SULFATE (2.5 MG/3ML) 0.083% INHALATION NEBULIZATION SOLUTION 021170 ALBUTER OL SULFATE Inactive NEBULIZER use as directed NEBULIZER NEBULI ZERS Inactive TESSALON PERLES 100 MG ORAL CAPSULE 1 tablet by mouth 3 times da juan pablo TESSALON PERLES 100 MG ORAL CAPSULE 408960 BENZONATATE Inactive CYCLOBENZAPRINE HCL 10 MG ORAL TABLET Take 1 tab TID PRN for mus triston pain CYCLOBENZAPRINE HCL 10 MG ORAL TABLET 357580 CYCLOBENZA ANUJA HCL Inactive AUGMENTIN 875-125 MG ORAL TABLET 1 po BID x 10 days 20 18/04/06 AUGMENTIN 875-125 MG ORAL TABLET AMOXICILLIN-POT CLAVULANATE Inactive BACTROBAN 2 % EXTERNAL CREAM Apply to affected area BID for up to 10 days BACTROBAN 2 % EXTERNAL CREAM MUPIROCIN CA LCIUM Inactive VITAMIN D3 64408 UNIT ORAL CAPSULE 1 pill Week x 4 mo nths for vitamin D deficiency/osteoporosis VITAMIN D3 39105 UNIT ORAL CAPSULE CHOLECALCIFEROL Inactive BENZONATATE 200 MG ORAL CAPSULE 1 three times a day as neede d for cough BENZONATATE 200 MG ORAL CAPSULE 786534 BENZONATA TE Inactive ZITHROMAX Z-MARTIN 250 MG ORAL TABLET 2 today and then 1 daily for 4 days ZITHROMAX Z-MARTIN 250 MG ORAL TABLET 935398 AZITHR OMYCIN Inactive ADDERALL 10 MG ORAL TABLET 1 tab twice daily 2 ADDERALL 10 MG ORAL TABLET 630328 AMPHETAMINE-DEXTROAMPHETAMINE Inactive LEVAQUIN 500 MG ORAL TABLET 1 tablet by mouth daily 20 21/06/28 LEVAQUIN 500 MG ORAL TABLET 457993 LEVOFLOXACIN Inactive AMOXICILLIN 500 MG ORAL CAPSULE 2 po BID x 10 days 201 07/15/00 AMOXICILLIN 500 MG ORAL CAPSULE 926862 AMOXICILLIN Inactive AZITHROMYCIN 250 MG ORAL TABLET take 2 po today then take 1 po days 2-5 AZITHROMYCIN 250 MG ORAL TABLET 791033 AZITHROMY BERNARDO Inactive LEVAQUIN 500 MG ORAL TABLET 1 pill by mouth daily 2013 LEVAQUIN 500 MG ORAL TABLET 564429 LEVOFLOXACIN Inactive AUGMENTIN 875-125 MG ORAL TABLET [...] days 08/02 PREDNISONE 20 MG ORAL TABLET 216880 PREDNISONE Inactive CIPRO 500 MG ORAL TABLET 1 tablet by mouth twice daily CIPRO 500 MG ORAL TABLET 298433 CIPROFLOXACIN HCL Inactive DOXYCYCLINE HYCLATE 100 MG ORAL CAPSULE 1 cap by mouth twice jong ly DOXYCYCLINE HYCLATE 100 MG ORAL CAPSULE 9582786 DOXYCYCL INE HYCLATE Inactive PREDNISONE 20 MG ORAL TABLET Take 3 tabs for 3 days, t hen 2 tabs for 3 days, then 1 tab for 3 days PREDNISONE 20 MG ORAL TABLET 312 615 PREDNISONE Inactive CHERATUSSIN AC 100-10 MG/5ML ORAL SYRUP 5ml po q6hr PRN Cough 20 21/03/15 CHERATUSSIN AC 100-10 MG/5ML ORAL SYRUP 747112 GUAIFENE SIN-CODEINE Inactive Immunizations Vaccine Administration Date [...] 10*3/mm3 142-424 Lab Report: Comp. Metabolic Panel, [facility] - Chemistry sodium, serum 140 mmol/L 611-963 0562/03/25 carbon dioxide, venous blood 33.2 mmol/L 21.0-32 [...] mg/dL 0.00-1.00 Lab Report: Comp. Metabolic Panel, [facility] - Lab Alkaline phosphatase 91 50-136 [...] negative Strep Screen Lot Number (CLIA Waived) [id number] Strep Screen Exp Date (CLIA Waived) 05/02/2020 Encounters Code Encounter Date Provider Facility CPT-49432 Level 3 Est. Patient 14:45:47 CDT Lina elliott APPLICATION SUPPORT MANAGER-C [facility] CPT-30879 [id number] Vst-Est Level III 16:58:04 CDT Me nae Vazquez [facility]-29371 [id number] Vst-Est Level IV 14:46:36 CITY PLANNER Foster Patel [facility] CPT-60963 Level 3 Est. Patient 12:37:30 CITY PLANNER Galilea Se [facility] CPT-09249 Level 3 Est. Patient 11:40:23 CDT Bertrand marquez [facility] CPT-97565 Level 4 Est. Patient 15:33:35 CITY PLANNER Bertrand marquez [facility] CPT-36253 Level 4 Est. Patient 12:31:54 CDT Bertrand marquez [facility]-32928 Level 3 Est. Patient 11:27:00 CITY PLANNER Ike Deluna MD [facility] CPT-77512 Level 3 Est. Patient 08:50:57 CITY PLANNER Silvia Are ll [facility] CPT-72960 Level 3 Est. Patient 10:04:13 CDT Bertrand marquez [facility] CPT-15923 Level 4 Est. Patient 16:02:10 CITY PLANNER Silvia Are ll [facility] CPT-95433 Level 3 Est. Patient 13:04:54 CITY PLANNER Silvia Are [facility] CPT-41780 Level 3 Est. Patient 12:56:37 CDT Bertrand marquez [facility] CPT-83218 Level 3 Est. Patient 19:12:03 CDT Yoli tolbert MD PhD [facility] CPT-55039 Level 3 Est. Patient 14:36:01 CDT Yoli tolbert MD PhD [facility] CPT-66993 Level 2 Est. Patient 08:00:22 CDT Jcarlos dc MD [facility]-95562 Level 3 Est. Patient 19:06:55 CDT Bertrand marquez [facility] CPT-97499 Level 3 Est. Patient 10:08:23 CITY PLANNER Bertrand marquez [facility] CPT-66352 Level 3 Est. Patient 16:37:54 CITY PLANNER Bertarnd marquez [facility] CPT-15375 Level 3 Est. Patient 11:31:59 CITY PLANNER Bertrand marquez [facility] CPT-42853 Level 3 Est. Patient 10:20:08 CDT Adolfo Porfirioridge jacklyn [facility] CPT-49383 Level 3 Est. Patient 13:45:20 CDT Sanket buckley [facility] CPT-58925 Level 3 Est. Patient 12:51:06 CDT Adolfo Bertrand jacklyn [facility] CPT-83271 Level 3 Est. Patient 11:22:51 CITY PLANNER Yoli tolbert MD PhD [facility] CPT-23947 Level 3 Est. Patient 13:33:19 CDT Bertrand marquez [facility] Procedures Code Procedure Name Date Entry Date Standard Desc ription CPT-06532 Sono abd valle iinc RUQ LUQ ascites search or pylorus - XRAY USE ONLY 09:11:06 CDT CPT-83590 Venipuncture Draw Fee 16:30:28 CDT [id number]-RX1757T (4274F) Influenza immunization administe red or previously received 15:55:57 CDT CPT-14827 Wound Culture - LAB USE ONLY 15:45:25 CDT 2 CPT-28274 Venipuncture Draw Fee 10:23:01 CDT CPT-J0696 Rocephin 1000 mg (Ceftriaxone) 16:20:30 CITY PLANNER CPT-11709 Abx/Therapy Injection 16:20:29 CITY PLANNER CPT-J0696 Rocephin 1gm Inj Solr 15:51:59 CITY PLANNER CPT-68938 Chest 2V Frontal and Lat 15:20:28 CITY PLANNER 07/22 CPT-20708 Breathing Tx 14:51:55 CITY PLANNER CPT-29075 Breathing Tx 09:57:16 CITY PLANNER CPT-96304 Knee comp 4/> V 11:58:06 CITY PLANNER
--- OUTSIDE RECORDS SUMMARY | 2019-11-13 09:43 | XMS REPORT | Clinical Summary ---
Author Author Admin, Enrique Adamson Organization [employer] Address Unknown Phone Unavailable Allergies, Adverse Reactions, [...] Patel DO Acute bronchitis Narcolepsy 347.00 Active Bretrand Patel DO Narcolepsy without cataplexy Animal bite [...] URI - viral 465.9 Resolved Lina Maher BAGEL MAKER-C Acute upper respiratory infections of unspecified site Pharyngitis acute 462 Resolved Lina Maher BAGEL MAKER -C Acute pharyngitis Abdominal pain, upper 789.09 Active Lina Maher A PRN-C Abdominal pain, other specified site; multiple sites Flank pain, left 789.09 Active Lina Maher BAGEL MAKER-C Abdominal pain, other specified site; multiple sites Morbid obesity due to excess calories 278.00 Resolved Lina Maher BAGEL MAKER-C Obesity, unspecified Other abnormal findings in urine Active 202 Lina Maher BAGEL MAKER-C Generalized colicky abdominal pain 789.07 Active 2 Lina Maher BAGEL MAKER-C Abdominal pain, generalized Nausea 787.02 Active Lina Maher BAGEL MAKER-C Nausea alone Abnormal abdominal imaging 793.6 Active E benjamín Maher APRN-C Nonspecific (abnormal) findings on radio logical and other examination of abdominal area, including retroperitoneum HEALTH SCREENING ICD-V70.0 Inactive Yoli sabillon MD PhD SCABIES ICD-133.0 Inactive Yoli Mercado MD PhD 201 07/14/20 FH DIABETES ICD-V18.0 Inactive Yoli Mercado MD PhD 20 14/02/29 SINUSITIS, FRONTAL, ACUTE ICD-461.1 Inactive Yoli Mercado MD PhD COUGH ICD-786.2 Inactive Yoli Mercado MD PhD 201 09/09/28 EDEMA LEG ICD-782.3 Inactive Adele Feldman WASHER OFF 201 01/01/02 SHORTNESS OF BREATH ICD-786.05 Inactive Yoli Mercado MD PhD RIB PAIN, RIGHT SIDED ICD-786.50 Inactive Yoli Mercado MD PhD KNEE PAIN, RIGHT ICD-719.46 Inactive Adele Esqueda n WASHER OFF Knee pain, left ICD-719.46 Inactive Adele Holdne hn WASHER OFF Pharyngitis-Acute ICD-462 Inactive Bertrand Redmond DO Polyuria ICD-788.42 Inactive Yoli Mercado MD P hD Cellulitis, leg, right ICD-682.6 Inactive Yuki Deluna MD Foreign body, ear ICD-931 Inactive Yoli salazar MD PhD Fatigue ICD-780.79 Inactive Ike Deluna MD 201 12/01/06 Headache ICD-784.0 Inactive Adele Feldman WASHER OFF 2017 Cough ICD-786.2 Inactive Adele Feldman WASHER OFF 06/04 SINUSITIS, ACUTE ICD-461.9 Inactive Ike lange MD Fatigue ICD-780.79 Inactive Adele Feldman WASHER OFF 2017 Bronchitis acute with bronchospasm ICD-466.0 I nactive Bertrand Patel DO Animal bite ICD-919.8 Inactive Adele Feldman LP N Mycoplasma infection ICD-041.81 Inactive Anit a Feldman WASHER OFF Amenorrhea, secondary ICD-626.0 Inactive Ani ta Feldman WASHER OFF Left maxillary sinusitis ICD-473.0 Inactive Bertrand Patel DO URI - viral ICD-465.9 Inactive Lina Maher APRN -Raul Pharyngitis acute ICD-462 Inactive Lina elliott APRN-C Morbid obesity due to excess calories ICD-278.00 Inactive Carla ALBERTO Medication List Medication Instructions Start Date Stop Date Generic Name NDC Status Provider Patient Instruction ZOFRAN 4 MG ORAL TABLET 1 tablet by mouth every 6 hour PRN nausea 2 ONDANSETRON HCL 89867069671 Active Adriana Davalos RN Active CYCLOBENZAPRINE HCL 10 MG ORAL TABLET 1 tablet by mout h three times a day as needed for muscle spasm CYCLOBENZAPRINE HCL 25223423256 Ac tive Lina Gunnar BAGEL MAKER-C Active HYDROCODONE-ACETAMINOPHEN 7.5-325 MG TABS 1 TAB EVERY 6 HOUR S PRN FOR PAIN HYDROCODONE-ACETAMINOPHEN 36523244804 Active Bertrand Patel DO Active TELMISARTAN 80 MG TABS 1 TABLET PO DAILY FOR BLOOD PRESSURE TELMISARTAN 94903283019 Active Adriana Davalos RN Active MODAFINIL 200 MG TABS 1/2 TABLET PO IN THE AM AND 1/2 TABLET AT NOON MODAFINIL 92900574705 Active Adriana Davalos RN Activ e DULOXETINE HCL 60 MG CPEP 1 CAPSULE PO DAILY DU LOXETINE HCL 19879508016 Active Adriana Davalos RN Active AMLODIPINE 5MG 1 TABLET PO DAILY FOR BLOOD PRESSURE AMLODIPINE BESYLATE 05540618768 Active Adriana Davalos RN Active ALPRAZOLAM 0.5 MG TABS TAKE 1 TABLET BY MOUTH THREE TIMES DAILY 201 02/10/05 ALPRAZOLAM 09813977542 Active Adriana Davalos RN Active SUDAFED 12 HOUR 120 MG ORAL TABLET EXTENDED RELEASE 12 HOUR 1 pill twice daily if for congestion PSEUDOEPHEDRINE HCL 17330186359 Active Silvia Vazquez APRN Active CHERATUSSIN AC 100-10 MG/5ML ORAL SYRUP 5ml po q6hr PRN Cough 20 21/03/15 GUAIFENESIN-CODEINE 89381313487 No Longer Active Silvia Vazquez APRN Active FLUTICASONE PROPIONATE 50 MCG/ACT NASAL SUSPENSION 2 s prays per nostril daily for 2 weeks, then 1 spray each nostril PRN FLUTI CASONE PROPIONATE 93763535769 Active Silvia Vazquez APRN Active EVENING PRIMROSE OIL 1000 MG ORAL CAPSULE 1 capsule once daily EVENING PRIMROSE OIL 48412900537 Active Bertrand Patel DO Active LEVAQUIN 500 MG ORAL TABLET 1 tablet by mouth daily 20 21/06/28 LEVOFLOXACIN 44822946019 No Longer Active Bertrand Patel DO Active PREDNISONE 20 MG ORAL TABLET Take 3 tabs for 3 days, t hen 2 tabs for 3 days, then 1 tab for 3 days PREDNISONE 06972676284 No Rainer fatou Active Galilea Sell BAGEL MAKER Active DOXYCYCLINE HYCLATE 100 MG ORAL CAPSULE 1 cap by mouth twice jong ly DOXYCYCLINE HYCLATE 72007511614 No Longer Active Galilea Sell BAGEL MAKER Active ADDERALL 10 MG ORAL TABLET 1 tab twice daily 2 AMPHETAMINE-DEXTROAMPHETAMINE 39823194677 No Longer Active Nitza Phi llips Scribe Active ZITHROMAX Z-MARTIN 250 MG ORAL TABLET 2 today and then 1 daily for 4 days AZITHROMYCIN 58342132238 No Longer Active Nitza Osman lips Scribe Active BENZONATATE 200 MG ORAL CAPSULE 1 three times a day as neede d for cough BENZONATATE 02728140376 No Longer Active Nitza Osman lips Scribe Active VITAMIN D3 04462 UNIT ORAL CAPSULE 1 pill Week x 4 mo nths for vitamin D deficiency/osteoporosis CHOLECALCIFEROL 10007721710 N o Longer Active Layla Garcia Active BACTROBAN 2 % EXTERNAL CREAM Apply to affected area BID for up to 10 days MUPIROCIN CALCIUM 82812919907 No Longer Active Ike Deluna MD Active CIPRO 500 MG ORAL TABLET 1 tablet by mouth twice daily CIPROFLOXACIN HCL 59301875053 No Longer Active Adriana Benedr LPN Active AUGMENTIN 875-125 MG ORAL TABLET 1 po BID x 10 days 20 18/04/06 AMOXICILLIN-POT CLAVULANATE 22818874575 No Longer Active Adriana Bender LPN Active CYCLOBENZAPRINE HCL 10 MG ORAL TABLET Take 1 tab TID PRN for mus triston pain CYCLOBENZAPRINE HCL 92673830434 No Longer Active Bertrand Patel DO Active TESSALON PERLES 100 MG ORAL CAPSULE 1 tablet by mouth 3 times da juan pablo BENZONATATE 02568656383 No Longer Active Bertrand Patel DO Ac tive NEBULIZER use as directed NEBULIZERS 17046410956 No Longer Active Bertrand Patel DO Active ALBUTEROL SULFATE (2.5 MG/3ML) 0.083% INHALATION NEBUL IZATION SOLUTION one vial per nebulizer every 4-6 hours as needed ALBUTERO L SULFATE 47759825669 No Longer Active Bertrand Patel DO Active SYMBICORT 160-4.5 MCG/ACT INHALATION AEROSOL 2 puffs BID 9 BUDESONIDE-FORMOTEROL FUMARATE 47623469590 No Longer Active Bertrand Patel DO Active PREDNISONE 20 MG ORAL TABLET take 3 tabs daily for 3 d ays, 2 tabs daily for 3 days, 1 tab daily for 3 days, 1/2 tab daily for 3 days 08/02 PREDNISONE 16288161326 No Longer Active Silvia Arekalin BAGEL MAKER Active AZITHROMYCIN 250 MG ORAL TABLET Take 2 tabs po today then 1 tab po daily AZITHROMYCIN 81533940121 No Longer Active Silvia Arell BAGEL MAKER Active AUGMENTIN 875-125 MG ORAL TABLET 1 po BID x 10 days 20 19/07/13 AMOXICILLIN-POT CLAVULANATE 28216697438 No Longer Active Adriana Bender LPN Active CHEWABLE CALCIUM 500-200-40 MG-UNT-MCG ORAL TABLET CHEWABLE 1 chew tab bid CALCIUM-VITAMIN D-VITAMIN K 90091080956 Active Silvia Are ll BAGEL MAKER Active EQ COMPLETE MULTIVIT ADULT 50+ ORAL TABLET 1 tab po bid MULTIPLE VITAMINS-MINERALS 06307936493 Active Silvia Arell BAGEL MAKER Active LORTAB 7.5-500 MG ORAL TABLET take one po Q6 hours 201 09/12/01 HYDROCODONE-ACETAMINOPHEN 06387212694 No Longer Active Nirmal Robbins RN Active [facility] MELATONIN 5-10 MG ORAL TABLET EXTENDED RELEASE Jair e one by mouth daily at bedtime MELATONIN-PYRIDOXINE 15149355193 No Longer Acti ve Bertrand Patel DO Active VITAMIN E 200 UNIT ORAL CAPSULE 1 cap po qd VITAM IN E 18742867918 No Longer Active Bertrand Patel DO Active B-12 1000 MCG ORAL CAPSULE 1 tab daily CYANOCOB ALAMIN 82957617859 No Longer Active Bertrand Patel DO Active METFORMIN HCL 500 MG ORAL TABLET 1 bid METFOR MIN HCL 54194981229 No Longer Active Bertrand Patel DO Active FUROSEMIDE 20 MG ORAL TABLET 1 pill by mouth daily if needed for edema FUROSEMIDE 85316966471 No Longer Active Bertrand Patel DO Active PRAVASTATIN SODIUM 20 MG ORAL TABLET 1 tablet by mouth daily at bedtime PRAVASTATIN SODIUM 71295210860 No Longer Active Bertrand Patel DO Active AUGMENTIN 875-125 MG ORAL TABLET 1 pill by mouth twice daily 201 09/10/00 AMOXICILLIN-POT CLAVULANATE 24654319167 No Longer Active Yoli Mercado MD PhD Active LEVAQUIN 500 MG ORAL TABLET 1 pill by mouth daily 2013 LEVOFLOXACIN 78115584269 No Longer Active oYli Mercado MD PhD Acti ve MICARDIS 80 MG ORAL TABLET 1 tablet daily for blood pressure 07/30 TELMISARTAN 11289369626 Active Adriana Davalos RN Active MICARDIS HCT 80-12.5 MG ORAL TABLET 1 qd TELMISARTAN-HCTZ 48908592902 No Longer Active Bertrand Patel DO Active CINNAMON ALPHA LIPOIC AC CMPLX CAPSULE by mouth twice a day in AM by mouth twice a day in PM ALPHA LIPOIC [id number] CA PS 54489841169 No Longer Active Bertrand Patel DO Active AZITHROMYCIN 500 MG INTRAVENOUS SOLUTION RECONSTITUTED 1 po q da y AZITHROMYCIN 39076563243 No Longer Active Bertrand Patel DO A ctive CYMBALTA 30 MG ORAL CAPSULE DELAYED RELEASE PARTICLES 1 cap by mouth daily DULOXETINE HCL 56340502652 No Longer Active Bertrand marquez DO Active CYMBALTA 60 MG ORAL CAPSULE DELAYED RELEASE PARTICLES 1 cap by mouth daily DULOXETINE HCL 81078483825 Active Adriana Davalos RN Active WELLBUTRIN 75 MG ORAL TABLET 2 times daily BUPR OPION HCL 79129187234 No Longer Active Bertrand Patel DO Active PROAIR HFA 108 (90 Base) MCG/ACT INHALATION AEROSOL SO LUTION take one to two puffs po Q4-6 hour prn cough and shortness of breath ALBUTEROL SULFATE 52645494208 Active Bertrand Patel DO Active AZITHROMYCIN 250 MG ORAL TABLET take 2 po today then take 1 po days 2-5 AZITHROMYCIN 93550508621 No Longer Active Adolfo OSORIO Active PERMETHRIN 5 % EXTERNAL CREAM apply neck to toes tonig ht and then rinse off in morning. repeat at 7 days PERMETHRIN 37122213015 No Longer Active Adolfo OSORIO Active AMOXICILLIN 500 MG ORAL CAPSULE 2 po BID x 10 days 201 07/15/00 AMOXICILLIN 67873056531 No Longer Active Yoli Mercado MD PhD Acti ve INSUPEN ULTRAFIN 31G X 6 MM USE DIRECTED INSULIN PEN NEEDLE 62268287855 No Longer Active Bertrand Patel DO Active TRANSDERM-SCOP (1.5 MG) 1 MG/3DAYS TRANSDERMAL PATCH 7 2 HOUR 1 patch applied behind ear q 3 day SCOPOLAMINE BASE 42117676929 No Lo nger Active Bertrand Patel DO Active MACRODANTIN 100 MG ORAL CAPSULE one p.o. b.i.d. x2 weeks NITROFURANTOIN MACROCRYSTAL 44832439026 No Longer Active Bertrand Patel DO Active MACRODANTIN 100 MG ORAL CAPSULE one p.o. b.i.d. x2 weeks MACRODANTIN 100 MG ORAL CAPSULE 0384586 NITROFURANTOIN MACROCRYSTAL Inactive TRANSDERM-SCOP (1.5 MG) 1 [...] days PERMETHRIN 5 % EXTER NAL CREAM 057803 PERMETHRIN Inactive WELLBUTRIN 75 MG ORAL TABLET 2 times daily WELLBUTRIN 75 MG ORAL TABLET BUPROPION HCL Inactive CYMBALTA 30 MG ORAL CAPSULE DELAYED RELEASE PARTICLES 1 cap by mouth daily CYMBALTA 30 MG ORAL CAPSULE DELAYED RELE ASE PARTICLES 946986 DULOXETINE HCL Inactive AZITHROMYCIN 500 MG INTRAVENOUS SOLUTION RECONSTITUTED 1 po q da y AZITHROMYCIN 500 MG INTRAVENOUS SOLUTION RECONSTITUTED 36060 097360 AZITHROMYCIN Inactive CINNAMON ALPHA LIPOIC AC CMPLX CAPSULE by mouth twice a day in AM by mouth twice a day in PM CINNAMON ALPHA LIPOIC AC CMPLX CAPSULE ALPHA LIPOIC [id number] CAPS Inactive MICARDIS HCT 80-12.5 MG ORAL TABLET 1 qd 07/30 MICARDIS HCT 80-12.5 MG ORAL TABLET 448675 TELMISARTAN-HCTZ Inactive PRAVASTATIN SODIUM 20 MG ORAL TABLET 1 tablet by mouth daily at bedtime PRAVASTATIN SODIUM 20 MG ORAL TABLET 942403 PRAVASTATIN SODIUM Inactive FUROSEMIDE 20 MG ORAL TABLET 1 pill by mouth daily if needed for edema FUROSEMIDE 20 MG ORAL TABLET 771623 FUROSEMIDE Inactive METFORMIN HCL 500 MG ORAL TABLET 1 bid METFORMIN HCL 500 MG ORAL TABLET 807171 METFORMIN HCL Inactive B-12 1000 MCG ORAL CAPSULE 1 tab daily B -12 1000 MCG ORAL CAPSULE CYANOCOBALAMIN Inactive VITAMIN E 200 UNIT ORAL CAPSULE 1 cap po qd 1 VITAMIN E 200 UNIT ORAL CAPSULE 9525460 VITAMIN E Inactive [facility] MELATONIN 5-10 MG [...] po daily AZITHROMYCIN 250 MG ORAL TABLET 545847 AZITHROMY BERNARDO Inactive SYMBICORT 160-4.5 MCG/ACT INHALATION AEROSOL 2 puffs BID 9 SYMBICORT 160-4.5 MCG/ACT INHALATION AEROSOL 1803459 BUDESONID E-FORMOTEROL FUMARATE Inactive ALBUTEROL SULFATE (2.5 MG/3ML) 0.083% INHALATION NEBUL IZATION SOLUTION one vial per nebulizer every 4-6 hours as needed ALBUTEROL SULFATE (2.5 MG/3ML) 0.083% INHALATION NEBULIZATION SOLUTION 029690 ALBUTER OL SULFATE Inactive NEBULIZER use as directed NEBULIZER NEBULI ZERS Inactive TESSALON PERLES 100 MG ORAL CAPSULE 1 tablet by mouth 3 times da juan pablo TESSALON PERLES 100 MG ORAL CAPSULE 076089 BENZONATATE Inactive CYCLOBENZAPRINE HCL 10 MG ORAL TABLET Take 1 tab TID PRN for mus triston pain CYCLOBENZAPRINE HCL 10 MG ORAL TABLET 921364 CYCLOBENZA ANUJA HCL Inactive AUGMENTIN 875-125 MG ORAL TABLET 1 po BID x 10 days 18/04/06 AUGMENTIN 875-125 MG ORAL TABLET AMOXICILLIN-POT CLAVULANATE Inactive BACTROBAN 2 % EXTERNAL CREAM Apply to affected area BID for up to 10 days BACTROBAN 2 % EXTERNAL CREAM MUPIROCIN CA LCIUM Inactive VITAMIN D3 29222 UNIT ORAL CAPSULE 1 pill Week x 4 mo nths for vitamin D deficiency/osteoporosis VITAMIN D3 34261 UNIT ORAL CAPSULE CHOLECALCIFEROL Inactive BENZONATATE 200 MG ORAL CAPSULE 1 three times a day as neede d for cough BENZONATATE 200 MG ORAL CAPSULE 222721 BENZONATA TE Inactive ZITHROMAX Z-MARTIN 250 MG ORAL TABLET 2 today and then 1 daily for 4 days ZITHROMAX Z-MARTIN 250 MG ORAL TABLET 723825 AZITHR OMYCIN Inactive ADDERALL 10 MG ORAL TABLET 1 tab twice daily 2 ADDERALL 10 MG ORAL TABLET 048670 AMPHETAMINE-DEXTROAMPHETAMINE Inactive LEVAQUIN 500 MG ORAL TABLET 1 tablet by mouth daily 20 21/06/28 LEVAQUIN 500 MG ORAL TABLET 337886 LEVOFLOXACIN Inactive AMOXICILLIN 500 MG ORAL CAPSULE 2 po BID x 10 days 201 07/15/00 AMOXICILLIN 500 MG ORAL CAPSULE 411473 AMOXICILLIN Inactive AZITHROMYCIN 250 MG ORAL TABLET take 2 po today then take 1 po days 2-5 AZITHROMYCIN 250 MG ORAL TABLET 344138 AZITHROMY BERNARDO Inactive LEVAQUIN 500 MG ORAL TABLET 1 pill by mouth daily 2013 LEVAQUIN 500 MG ORAL TABLET 160331 LEVOFLOXACIN Inactive AUGMENTIN 875-125 MG ORAL TABLET [...] days 08/02 PREDNISONE 20 MG ORAL TABLET 878651 PREDNISONE Inactive CIPRO 500 MG ORAL TABLET 1 tablet by mouth twice daily CIPRO 500 MG ORAL TABLET 138129 CIPROFLOXACIN HCL Inactive DOXYCYCLINE HYCLATE 100 MG ORAL CAPSULE 1 cap by mouth twice jong ly DOXYCYCLINE HYCLATE 100 MG ORAL CAPSULE 8754155 DOXYCYCL INE HYCLATE Inactive PREDNISONE 20 MG ORAL TABLET Take 3 tabs for 3 days, t hen 2 tabs for 3 days, then 1 tab for 3 days PREDNISONE 20 MG ORAL TABLET 312 615 PREDNISONE Inactive CHERATUSSIN AC 100-10 MG/5ML ORAL SYRUP 5ml po q6hr PRN Cough 20 21/03/15 CHERATUSSIN AC 100-10 MG/5ML ORAL SYRUP 098592 GUAIFENE SIN-CODEINE Inactive Vital Signs Date Name Value Unit Range Description blood pressure, diastolic, second observation 88 m [...] 10*3/mm3 142-424 Lab Report: Comp. Metabolic Panel, [facility] - Chemistry sodium, serum 140 mmol/L 026-872 6993/03/25 carbon dioxide, venous blood 33.2 mmol/L 21.0-32 [...] mg/dL 0.00-1.00 Lab Report: Comp. Metabolic Panel, [facility] - Lab Alkaline phosphatase 91 50-136 [...] pH, urine, semiquantitative 7.0 5.0-8.5 Office Visit: S/T, Fever, Cough - Microb iology Strep Screen QC Result (CLIA Waived) negative Strep Screen Lot Number (CLIA Waived) [id number] Strep Screen Exp Date (CLIA Waived) 05/02/2020 Encounters Code Encounter Date Provider Facility CPT-62508 [id number] Vst-Est Level III 16:58:04 CDT Me nae Vazquez [facility]-14366 20215-Zdd Vst-Est Level IV 14:46:36 WATER SOFTENER SERVICER Foster Patel [facility] CPT-62968 Level 3 Est. Patient 12:37:30 WATER SOFTENER SERVICER Galilea Se [facility] CPT-71448 Level 3 Est. Patient 11:40:23 CDT Bertrand marquez [facility] CPT-68338 Level 4 Est. Patient 15:33:35 WATER SOFTENER SERVICER Bertrand marquez [facility] CPT-15594 Level 4 Est. Patient 12:31:54 CDT Bertrand marquez [facility] CPT-92691 Level 3 Est. Patient 11:27:00 WATER SOFTENER SERVICER Ike Deluna MD [facility] CPT-60435 Level 3 Est. Patient 08:50:57 WATER SOFTENER SERVICER Silvia Are [facility] CPT-95132 Level 3 Est. Patient 10:04:13 CDT Bertrand marquez [facility] CPT-55749 Level 4 Est. Patient 16:02:10 WATER SOFTENER SERVICER Silvia Are [facility] CPT-58858 Level 3 Est. Patient 13:04:54 WATER SOFTENER SERVICER Silvia Are [facility] CPT-19317 Level 3 Est. Patient 12:56:37 CDT Bertrand marquez [facility] CPT-03334 Level 3 Est. Patient 19:12:03 CDT Yoli tolbert MD [facility] CPT-71883 Level 3 Est. Patient 14:36:01 CDT Yoli tolbert MD PhD [facility] CPT-72330 Level 2 Est. Patient 08:00:22 CDT Jcarlos dc MD [facility]-19860 Level 3 Est. Patient 19:06:55 CDT Bertrand marquez [facility] CPT-26233 Level 3 Est. Patient 10:08:23 WATER SOFTENER SERVICER Bertrand marquez [facility] CPT-76438 Level 3 Est. Patient 16:37:54 WATER SOFTENER SERVICER Bertrand marquez [facility] CPT-01797 Level 3 Est. Patient 11:31:59 WATER SOFTENER SERVICER Bertrand marquez [facility] CPT-86248 Level 3 Est. Patient 10:20:08 CDT Adolfo villasenor [facility] CPT-31408 Level 3 Est. Patient 13:45:20 CDT Sanket buckley [facility] CPT-12969 Level 3 Est. Patient 12:51:06 CDT Adolfo villasenor [facility] CPT-05886 Level 3 Est. Patient 11:22:51 WATER SOFTENER SERVICER Yoli tolbert MD [facility]-92664 Level 3 Est. Patient 13:33:19 CDT Bertrand marquez [facility] Procedures Code Procedure Name Date Entry Date Standard Desc ription CPT-39500 Sono abd valle iinc RUQ LUQ ascites search or pylorus - XRAY USE ONLY 09:11:06 CDT CPT-39768 Venipuncture Draw Fee 16:30:28 CDT [id number] (4274F) Influenza immunization administe red or previously received 15:55:57 CDT CPT-52100 Wound Culture - LAB USE ONLY 15:45:25 CDT 2 CPT-26825 Venipuncture Draw Fee 10:23:01 CDT CPT-J0696 Rocephin 1000 mg (Ceftriaxone) 16:20:30 WATER SOFTENER SERVICER CPT-95970 Abx/Therapy Injection 16:20:29 WATER SOFTENER SERVICER CPT-J0696 Rocephin 1gm Inj Solr 15:51:59 WATER SOFTENER SERVICER CPT-86923 Chest 2V Frontal and Lat 15:20:28 WATER SOFTENER SERVICER 07/22 CPT-06710 Breathing Tx 14:51:55 WATER SOFTENER SERVICER CPT-63435 Breathing Tx 09:57:16 WATER SOFTENER SERVICER CPT-56574 Knee comp 4/> V 11:58:06 WATER SOFTENER SERVICER
--- OUTSIDE RECORDS SUMMARY | 2019-11-13 09:43 | XMS REPORT | Clinical Summary ---
Author Author Admin, Enrique Adamson Organization [employer] Address Unknown Phone Unavailable Allergies, Adverse Reactions, [...] URI - viral 465.9 Resolved Lina Maher [employer] Acute upper respiratory infections of unspecified site Pharyngitis acute 462 Resolved Lina Maher [employer] Acute pharyngitis Abdominal pain, upper 789.09 Active Lina Maher A PRN-C Abdominal pain, other specified site; multiple sites Flank pain, left 789.09 Active Lina Maher [employer] Abdominal pain, other specified site; multiple sites Morbid obesity due to excess calories 278.00 Resolved Lina Maher [employer] Obesity, unspecified Other abnormal findings in urine Active 202 Lina Maher [employer] Generalized colicky abdominal pain 789.07 Active 2 Lina Maher [employer] Abdominal pain, generalized Nausea 787.02 Active Lina Maher [employer] Nausea alone Abnormal abdominal imaging 793.6 Active [...] 09/09/28 EDEMA LEG ICD-782.3 Inactive Adele Feldman ACCESS ANALYST 201 01/01/02 SHORTNESS OF BREATH ICD-786.05 Inactive Yoli Mercado MD PhD RIB PAIN, RIGHT SIDED ICD-786.50 Inactive Yoli Mercado MD PhD KNEE PAIN, RIGHT ICD-719.46 Inactive Adele Esqueda n ACCESS ANALYST Knee pain, left ICD-719.46 Inactive Adele Holden hn ACCESS ANALYST Pharyngitis-Acute ICD-462 Inactive Bertrand Redmond DO Polyuria ICD-788.42 Inactive Yoli Mercado MD P hD Cellulitis, leg, right ICD-682.6 Inactive Yuki Deluna MD Foreign body, ear ICD-931 Inactive Yoli salazar MD PhD Fatigue ICD-780.79 Inactive Ike Deluna MD 201 12/01/06 Headache ICD-784.0 Inactive Adele Feldman ACCESS ANALYST 2017 Cough ICD-786.2 Inactive Adele Feldman ACCESS ANALYST 06/04 SINUSITIS, ACUTE ICD-461.9 Inactive Ike lange MD Fatigue ICD-780.79 Inactive Adele Feldman ACCESS ANALYST 2017 Bronchitis acute with bronchospasm ICD-466.0 I nactive Bertrand Patel DO Animal bite ICD-919.8 Inactive Adele Feldman LP N Mycoplasma infection ICD-041.81 Inactive Anit a Feldman ACCESS ANALYST Amenorrhea, secondary ICD-626.0 Inactive Ani ta Feldman ACCESS ANALYST Left maxillary sinusitis ICD-473.0 Inactive Bertrand Patel [...] 6 hour PRN nausea 2 ONDANSETRON HCL 73437179438 Active Adriana Davalos RN Active CYCLOBENZAPRINE HCL 10 MG ORAL TABLET 1 tablet by mout h three times a day as needed for muscle spasm CYCLOBENZAPRINE HCL 42144191390 Ac tive Lina Gunnar [employer] Active HYDROCODONE-ACETAMINOPHEN 7.5-325 MG TABS 1 TAB EVERY 6 HOUR S PRN FOR PAIN HYDROCODONE-ACETAMINOPHEN 96970873420 Active Bertrand Patel DO Active TELMISARTAN 80 MG TABS 1 TABLET PO DAILY FOR BLOOD PRESSURE TELMISARTAN 54305191612 Active Adriana Davalos RN Active MODAFINIL 200 MG TABS 1/2 TABLET PO IN THE AM AND 1/2 TABLET AT NOON MODAFINIL 27372592958 Active Adriana Davalos RN Activ e DULOXETINE HCL 60 MG CPEP 1 CAPSULE PO DAILY DU LOXETINE HCL 47704690631 Active Adriana Davalos RN Active AMLODIPINE 5MG 1 TABLET PO DAILY FOR BLOOD PRESSURE AMLODIPINE BESYLATE 72539169970 Active Adriana Davalos RN Active ALPRAZOLAM 0.5 MG TABS TAKE 1 TABLET BY MOUTH THREE TIMES DAILY 201 02/10/05 ALPRAZOLAM 60750216438 Active Adriana Davalos RN Active SUDAFED 12 HOUR 120 MG ORAL TABLET EXTENDED RELEASE 12 HOUR 1 pill twice daily if for congestion PSEUDOEPHEDRINE HCL 85015466841 Active Silvia Vazquez APRN Active CHERATUSSIN AC 100-10 MG/5ML ORAL SYRUP 5ml po q6hr PRN Cough 20 21/03/15 GUAIFENESIN-CODEINE 39956427497 No Longer Active Silvia Vazquez APRN Active FLUTICASONE PROPIONATE 50 MCG/ACT NASAL SUSPENSION 2 s prays per nostril daily for 2 weeks, then 1 spray each nostril PRN FLUTI CASONE PROPIONATE 64153976162 Active Silvia Vazquez APRN Active EVENING PRIMROSE OIL 1000 MG ORAL CAPSULE 1 capsule once daily EVENING PRIMROSE OIL 49790151297 Active Bertrand Patel DO Active LEVAQUIN 500 MG ORAL TABLET 1 tablet by mouth daily 20 21/06/28 LEVOFLOXACIN 35798802685 No Longer Active Bertrand Patel DO Active PREDNISONE 20 MG ORAL TABLET Take 3 tabs for 3 days, t hen 2 tabs for 3 days, then 1 tab for 3 days PREDNISONE 02804173617 No Rainer fatou Active Galilea Sell [employer] Active DOXYCYCLINE HYCLATE 100 MG ORAL CAPSULE 1 cap by mouth twice jong ly DOXYCYCLINE HYCLATE 76699170230 No Longer Active Galilea Sell [employer]INTER Active ADDERALL 10 MG ORAL TABLET 1 tab twice daily 2 AMPHETAMINE-DEXTROAMPHETAMINE 76698711141 No Longer Active Nitza Phi llips Scribe Active ZITHROMAX Z-MARTIN 250 MG ORAL TABLET 2 today and then 1 daily for 4 days AZITHROMYCIN 13917349962 No Longer Active Nitza Osman lips Scribe Active BENZONATATE 200 MG ORAL CAPSULE 1 three times a day as neede d for cough BENZONATATE 94145899541 No Longer Active Nitza Osman lips Scribe Active VITAMIN D3 35816 UNIT ORAL CAPSULE 1 pill Week x 4 mo nths for vitamin D deficiency/osteoporosis CHOLECALCIFEROL 18875666104 N o Longer Active Layla Garcia Active BACTROBAN 2 % EXTERNAL CREAM Apply to affected area BID for up to 10 days MUPIROCIN CALCIUM 69338757634 No Longer Active Ike Deluna MD Active CIPRO 500 MG ORAL TABLET 1 tablet by mouth twice daily CIPROFLOXACIN HCL 34506038653 No Longer Active Adriana Bender LPN Active AUGMENTIN 875-125 MG ORAL TABLET 1 po BID x 10 days 20 18/04/06 AMOXICILLIN-POT CLAVULANATE 35524409638 No Longer Active Adriana Bender LPN Active CYCLOBENZAPRINE HCL 10 MG ORAL TABLET Take 1 tab TID PRN for mus triston pain CYCLOBENZAPRINE HCL 54088204574 No Longer Active Bertrand Patel DO Active TESSALON PERLES 100 MG ORAL CAPSULE 1 tablet by mouth 3 times da juan pablo BENZONATATE 66763582285 No Longer Active Bertrand Patel DO Ac tive NEBULIZER use as directed NEBULIZERS 71058488409 No Longer Active Bertrand Patel DO Active ALBUTEROL SULFATE (2.5 MG/3ML) 0.083% INHALATION NEBUL IZATION SOLUTION one vial per nebulizer every 4-6 hours as needed ALBUTERO L SULFATE 99630054203 No Longer Active Bertrand Patel DO Active SYMBICORT 160-4.5 MCG/ACT INHALATION AEROSOL 2 puffs BID 9 BUDESONIDE-FORMOTEROL FUMARATE 94605160463 No Longer Active Bertrand Patel DO Active PREDNISONE 20 MG ORAL TABLET take 3 tabs daily for 3 d ays, 2 tabs daily for 3 days, 1 tab daily for 3 days, 1/2 tab daily for 3 days 08/02 PREDNISONE 32884160293 No Longer Active Silvia Arekalin [employer]INTER Active AZITHROMYCIN 250 MG ORAL TABLET Take 2 tabs po today then 1 tab po daily AZITHROMYCIN 48369310209 No Longer Active Silvia Arell [employer] Active AUGMENTIN 875-125 MG ORAL TABLET 1 po BID x 10 days 20 19/07/13 AMOXICILLIN-POT CLAVULANATE 88462230373 No Longer Active Adriana Bender LPN Active CHEWABLE CALCIUM 500-200-40 MG-UNT-MCG ORAL TABLET CHEWABLE 1 chew tab bid CALCIUM-VITAMIN D-VITAMIN K 19282494265 Active Silvia Are ll [employer]INTER Active EQ COMPLETE MULTIVIT ADULT 50+ ORAL TABLET 1 tab po bid MULTIPLE VITAMINS-MINERALS 71967641326 Active Silvia Arell [employer] PRINTER Active LORTAB 7.5-500 MG ORAL TABLET take one po Q6 hours 201 09/12/01 HYDROCODONE-ACETAMINOPHEN 64959116167 No Longer Active Nirmal Robbins RN Active [facility] MELATONIN 5-10 MG ORAL TABLET EXTENDED RELEASE Jair e one by mouth daily at bedtime MELATONIN-PYRIDOXINE 63250034386 No Longer Acti ve Bertrand Patel DO Active VITAMIN E 200 UNIT ORAL CAPSULE 1 cap po qd VITAM IN E 79197121486 No Longer Active Bertrand Patel DO Active B-12 1000 MCG ORAL CAPSULE 1 tab daily CYANOCOB ALAMIN 10747108282 No Longer Active Bertrand Patel DO Active METFORMIN HCL 500 MG ORAL TABLET 1 bid METFOR MIN HCL 00459651657 No Longer Active Bertrand Patel DO Active FUROSEMIDE 20 MG ORAL TABLET 1 pill by mouth daily if needed for edema FUROSEMIDE 17091374589 No Longer Active Bertrand Patel DO Active PRAVASTATIN SODIUM 20 MG ORAL TABLET 1 tablet by mouth daily at bedtime PRAVASTATIN SODIUM 51219139508 No Longer Active Bertrand Patel DO Active AUGMENTIN 875-125 MG ORAL TABLET 1 pill by mouth twice daily 201 09/10/00 AMOXICILLIN-POT CLAVULANATE 91362467288 No Longer Active Yoli Mercado MD PhD Active LEVAQUIN 500 MG ORAL TABLET 1 pill by mouth daily 2013 LEVOFLOXACIN 58209745139 No Longer Active Yoli Mercado MD PhD Acti ve MICARDIS 80 MG ORAL TABLET 1 tablet daily for blood pressure 07/30 TELMISARTAN 31333822187 Active Adriana Davalos RN Active MICARDIS HCT 80-12.5 MG ORAL TABLET 1 qd TELMISARTAN-HCTZ 85590068816 No Longer Active Bertrand Patel DO Active CINNAMON ALPHA LIPOIC AC CMPLX CAPSULE by mouth twice a day in AM by mouth twice a day in PM ALPHA LIPOIC [id number] CA PS 32802940615 No Longer Active Bertrand Patel DO Active AZITHROMYCIN 500 MG INTRAVENOUS SOLUTION RECONSTITUTED 1 po q da y AZITHROMYCIN 89955183053 No Longer Active Bertrand Patel DO A ctive CYMBALTA 30 MG ORAL CAPSULE DELAYED RELEASE PARTICLES 1 cap by mouth daily DULOXETINE HCL 30891750860 No Longer Active Bertrand marquez DO Active CYMBALTA 60 MG ORAL CAPSULE DELAYED RELEASE PARTICLES 1 cap by mouth daily DULOXETINE HCL 29025162732 Active Adriana Davalos RN Active WELLBUTRIN 75 MG ORAL TABLET 2 times daily BUPR OPION HCL 63090133565 No Longer Active Bertrand Patel DO Active PROAIR HFA 108 (90 Base) MCG/ACT INHALATION AEROSOL SO LUTION take one to two puffs po Q4-6 hour prn cough and shortness of breath ALBUTEROL SULFATE 22929504119 Active Bertrand Patel DO Active AZITHROMYCIN 250 MG ORAL TABLET take 2 po today then take 1 po days 2-5 AZITHROMYCIN 62308979204 No Longer Active Adolfo OSORIO Active PERMETHRIN 5 % EXTERNAL CREAM apply neck to toes tonig ht and then rinse off in morning. repeat at 7 days PERMETHRIN 40449541457 No Longer Active Adolfo OSORIO Active AMOXICILLIN 500 MG ORAL CAPSULE 2 po BID x 10 days 201 07/15/00 AMOXICILLIN 95860550247 No Longer Active Yoli Mercado MD PhD Acti ve INSUPEN ULTRAFIN 31G X 6 MM USE DIRECTED INSULIN PEN NEEDLE 98608724474 No Longer Active Bertrand Patel DO Active TRANSDERM-SCOP (1.5 MG) 1 MG/3DAYS TRANSDERMAL PATCH 7 2 HOUR 1 patch applied behind ear q 3 day SCOPOLAMINE BASE 44994157042 No Lo nger Active Bertrand Patel DO Active MACRODANTIN 100 MG ORAL CAPSULE one p.o. b.i.d. x2 weeks NITROFURANTOIN MACROCRYSTAL 57135521294 No Longer Active Bertrand Patel DO Active MACRODANTIN 100 MG ORAL CAPSULE one p.o. b.i.d. x2 weeks MACRODANTIN 100 MG ORAL CAPSULE 2544093 NITROFURANTOIN MACROCRYSTAL Inactive TRANSDERM-SCOP (1.5 MG) 1 [...] days PERMETHRIN 5 % EXTER NAL CREAM 085646 PERMETHRIN Inactive WELLBUTRIN 75 MG ORAL TABLET 2 times daily WELLBUTRIN 75 MG ORAL TABLET BUPROPION HCL Inactive CYMBALTA 30 MG ORAL CAPSULE DELAYED RELEASE PARTICLES 1 cap by mouth daily CYMBALTA 30 MG ORAL CAPSULE DELAYED RELE ASE PARTICLES 240655 DULOXETINE HCL Inactive AZITHROMYCIN 500 MG INTRAVENOUS SOLUTION RECONSTITUTED 1 po q da y AZITHROMYCIN 500 MG INTRAVENOUS SOLUTION RECONSTITUTED 47190 058678 AZITHROMYCIN Inactive CINNAMON ALPHA LIPOIC AC CMPLX CAPSULE by mouth twice a day in AM by mouth twice a day in PM CINNAMON ALPHA LIPOIC AC CMPLX CAPSULE ALPHA LIPOIC [id number] CAPS Inactive MICARDIS HCT 80-12.5 MG ORAL TABLET 1 qd 07/30 MICARDIS HCT 80-12.5 MG ORAL TABLET 737360 TELMISARTAN-HCTZ Inactive PRAVASTATIN SODIUM 20 MG ORAL TABLET 1 tablet by mouth daily at bedtime PRAVASTATIN SODIUM 20 MG ORAL TABLET 608380 PRAVASTATIN SODIUM Inactive FUROSEMIDE 20 MG ORAL TABLET 1 pill by mouth daily if needed for edema FUROSEMIDE 20 MG ORAL TABLET 565989 FUROSEMIDE Inactive METFORMIN HCL 500 MG ORAL TABLET 1 bid METFORMIN HCL 500 MG ORAL TABLET 450783 METFORMIN HCL Inactive B-12 1000 MCG ORAL CAPSULE 1 tab daily B -12 1000 MCG ORAL CAPSULE CYANOCOBALAMIN Inactive VITAMIN E 200 UNIT ORAL CAPSULE 1 cap po qd 1 VITAMIN E 200 UNIT ORAL CAPSULE 9428337 VITAMIN E Inactive [facility] MELATONIN 5-10 MG [...] po daily AZITHROMYCIN 250 MG ORAL TABLET 456760 AZITHROMY BERNARDO Inactive SYMBICORT 160-4.5 MCG/ACT INHALATION AEROSOL 2 puffs BID 9 SYMBICORT 160-4.5 MCG/ACT INHALATION AEROSOL 9959602 BUDESONID E-FORMOTEROL FUMARATE Inactive ALBUTEROL SULFATE (2.5 MG/3ML) 0.083% INHALATION NEBUL IZATION SOLUTION one vial per nebulizer every 4-6 hours as needed ALBUTEROL SULFATE (2.5 MG/3ML) 0.083% INHALATION NEBULIZATION SOLUTION 184400 ALBUTER OL SULFATE Inactive NEBULIZER use as directed NEBULIZER NEBULI ZERS Inactive TESSALON PERLES 100 MG ORAL CAPSULE 1 tablet by mouth 3 times da juan pablo TESSALON PERLES 100 MG ORAL CAPSULE 688384 BENZONATATE Inactive CYCLOBENZAPRINE HCL 10 MG ORAL TABLET Take 1 tab TID PRN for mus triston pain CYCLOBENZAPRINE HCL 10 MG ORAL TABLET 367802 CYCLOBENZA ANUJA HCL Inactive AUGMENTIN 875-125 MG ORAL TABLET 1 po BID x 10 days 18/04/06 AUGMENTIN 875-125 MG ORAL TABLET AMOXICILLIN-POT CLAVULANATE Inactive BACTROBAN 2 % EXTERNAL CREAM Apply to affected area BID for up to 10 days BACTROBAN 2 % EXTERNAL CREAM MUPIROCIN CA LCIUM Inactive VITAMIN D3 18049 UNIT ORAL CAPSULE 1 pill Week x 4 mo nths for vitamin D deficiency/osteoporosis VITAMIN D3 87199 UNIT ORAL CAPSULE CHOLECALCIFEROL Inactive BENZONATATE 200 MG ORAL CAPSULE 1 three times a day as neede d for cough BENZONATATE 200 MG ORAL CAPSULE 004028 BENZONATA TE Inactive ZITHROMAX Z-MARTIN 250 MG ORAL TABLET 2 today and then 1 daily for 4 days ZITHROMAX Z-MARTIN 250 MG ORAL TABLET 288275 AZITHR OMYCIN Inactive ADDERALL 10 MG ORAL TABLET 1 tab twice daily 2 ADDERALL 10 MG ORAL TABLET 625171 AMPHETAMINE-DEXTROAMPHETAMINE Inactive LEVAQUIN 500 MG ORAL TABLET 1 tablet by mouth daily 20 21/06/28 LEVAQUIN 500 MG ORAL TABLET 734539 LEVOFLOXACIN Inactive AMOXICILLIN 500 MG ORAL CAPSULE 2 po BID x 10 days 201 07/15/00 AMOXICILLIN 500 MG ORAL CAPSULE 738443 AMOXICILLIN Inactive AZITHROMYCIN 250 MG ORAL TABLET take 2 po today then take 1 po days 2-5 AZITHROMYCIN 250 MG ORAL TABLET 933869 AZITHROMY BERNARDO Inactive LEVAQUIN 500 MG ORAL TABLET 1 pill by mouth daily 2013 LEVAQUIN 500 MG ORAL TABLET 881138 LEVOFLOXACIN Inactive AUGMENTIN 875-125 MG ORAL TABLET [...] days 08/02 PREDNISONE 20 MG ORAL TABLET 733571 PREDNISONE Inactive CIPRO 500 MG ORAL TABLET 1 tablet by mouth twice daily CIPRO 500 MG ORAL TABLET 158519 CIPROFLOXACIN HCL Inactive DOXYCYCLINE HYCLATE 100 MG ORAL CAPSULE 1 cap by mouth twice jong ly DOXYCYCLINE HYCLATE 100 MG ORAL CAPSULE 8896851 DOXYCYCL INE HYCLATE Inactive PREDNISONE 20 MG ORAL TABLET Take 3 tabs for 3 days, t hen 2 tabs for 3 days, then 1 tab for 3 days PREDNISONE 20 MG ORAL TABLET 312 615 PREDNISONE Inactive CHERATUSSIN AC 100-10 MG/5ML ORAL SYRUP 5ml po q6hr PRN Cough 20 21/03/15 CHERATUSSIN AC 100-10 MG/5ML ORAL SYRUP 556484 GUAIFENE SIN-CODEINE Inactive Vital Signs Date Name [...] Lab Report: Comp. Metabolic Panel, [facility] - Chemistry sodium, serum 140 mmol/L [phone]/03/25 carbon dioxide, venous blood 33.2 mmol/L 21.0-32 [...] mg/dL 0.00-1.00 Lab Report: Comp. Metabolic Panel, [facility] - Lab Alkaline phosphatase 91 50-136 [...] negative Strep Screen Lot Number (CLIA Waived) [id number] Strep Screen Exp Date (CLIA Waived) 05/02/2020 Encounters Code Encounter Date Provider Facility CPT-16027 [id number] Vst-Est Level III 16:58:04 CDT Me nae Vazquez [facility]-97131 [id number] Vst-Est Level IV 14:46:36 DITCH CLEANER Foster Patel [facility] CPT-75883 Level 3 Est. Patient 12:37:30 DITCH CLEANER Galilea Se Formerly named [facility] CPT-77560 Level 3 Est. Patient 11:40:23 CDT Bertrand marquez [facility] CPT-49032 Level 4 Est. Patient 15:33:35 DITCH CLEANER Bertrand marquez [facility] CPT-15191 Level 4 Est. Patient 12:31:54 CDT Bertrand marquez [facility] CPT-30184 Level 3 Est. Patient 11:27:00 DITCH CLEANER Ike Deluna MD [facility] CPT-99403 Level 3 Est. Patient 08:50:57 DITCH CLEANER Silvia Are Formerly named [facility] CPT-73984 Level 3 Est. Patient 10:04:13 CDT Bertrand marquez [facility] CPT-51978 Level 4 Est. Patient 16:02:10 DITCH CLEANER Silvia Are kalin [facility] CPT-17942 Level 3 Est. Patient 13:04:54 DITCH CLEANER Silvia Are Formerly named [facility] CPT-62769 Level 3 Est. Patient 12:56:[address] [facility] CPT-31832 Level 3 Est. Patient 19:12:03 CDT Yoli tolbert MD [facility] CPT-68319 Level 3 Est. Patient 14:36:01 CDT Yoli tolbert MD PhD [facility] CPT-72939 Level 2 Est. Patient 08:00:22 CDT Jcarlos dc MD [facility]-54369 Level 3 Est. Patient 19:06:[address] [facility] CPT-51895 Level 3 Est. Patient 10:08:23 DITCH CLEANER Bertrand marquez [facility] CPT-76860 Level 3 Est. Patient 16:37:54 DITCH CLEANER Bertrand marquez [facility] CPT-78281 Level 3 Est. Patient 11:31:59 DITCH CLEANER Bertrand marquez [facility] CPT-23661 Level 3 Est. Patient 10:20:08 CDT Adolfo villasenor [facility] CPT-38153 Level 3 Est. Patient 13:45:20 CDT Sanket buckley [facility] CPT-44537 Level 3 Est. Patient 12:51:06 CDT Adolfo villasenor [facility] CPT-28254 Level 3 Est. Patient 11:22:51 DITCH CLEANER Yoli tolbert MD [facility]-24177 Level 3 Est. Patient 13:33:[address] [facility] Procedures Code Procedure Name Date Entry Date Standard Desc ription CPT-44968 Sono abd valle iinc RUQ LUQ ascites search or pylorus - XRAY USE ONLY 09:11:06 CDT CPT-22920 Venipuncture Draw Fee 16:30:28 CDT [id number]-[id number] ([id number]) Influenza immunization administe red or previously received 15:55:57 CDT CPT-64557 Wound Culture - LAB USE ONLY 15:45:25 CDT 2 CPT-55360 Venipuncture Draw Fee 10:23:01 CDT CPT-J0696 Rocephin 1000 mg (Ceftriaxone) 16:20:30 DITCH CLEANER CPT-59987 Abx/Therapy Injection 16:20:29 DITCH CLEANER CPT-J0696 Rocephin 1gm Inj Solr 15:51:59 DITCH CLEANER CPT-61197 Chest 2V Frontal and Lat 15:20:28 DITCH CLEANER 07/22 CPT-40458 Breathing Tx 14:51:55 DITCH CLEANER CPT-45455 Breathing Tx 09:57:16 DITCH CLEANER CPT-29335 Knee comp 4/> V 11:58:06 DITCH CLEANER
--- OUTSIDE RECORDS SUMMARY | 2019-11-13 09:44 | XMS REPORT | Clinical Summary ---
Author Author Admin, Enrique Adamson Organization [employer] Address Unknown Phone Unavailable Allergies, Adverse Reactions, [...] without cataplexy Animal bite 919.8 Resolved Nitza Mullins Scrib e Other and unspecified superficial injury [...] URI - viral 465.9 Resolved Lina Maher SHREDDED FILLER CUTTER OPERATOR-C Acute upper respiratory infections of unspecified site Pharyngitis acute 462 Resolved Lina Maher SHREDDED FILLER CUTTER OPERATOR -C Acute pharyngitis Abdominal pain, upper 789.09 Active Lina Maher A PRN-C Abdominal pain, other specified site; multiple sites Flank pain, left 789.09 Active Lina Maher SHREDDED FILLER CUTTER OPERATOR-C Abdominal pain, other specified site; multiple sites Morbid obesity due to excess calories 278.00 Resolved Lina Maher SHREDDED FILLER CUTTER OPERATOR-C Obesity, unspecified Other abnormal findings in urine Active 202 Lina Maher SHREDDED FILLER CUTTER OPERATOR-C Generalized colicky abdominal pain 789.07 Active 2 Lina Maher APRN-C Abdominal pain, generalized HEALTH SCREENING ICD-V70.0 Inactive Yoli sabillon MD PhD SCABIES ICD-133.0 Inactive Yoli Mercado MD PhD 201 07/14/20 FH DIABETES ICD-V18.0 Inactive Yoli Mercado MD PhD 20 14/02/29 SINUSITIS, FRONTAL, ACUTE ICD-461.1 Inactive Yoli Mercado MD PhD COUGH ICD-786.2 Inactive Yoli Mercado MD PhD 201 09/09/28 EDEMA LEG ICD-782.3 Inactive Adele Feldman [facility] 201 01/01/02 SHORTNESS OF BREATH ICD-786.05 Inactive Yoli Mercado MD PhD RIB PAIN, RIGHT SIDED ICD-786.50 Inactive Yoli Mercado MD PhD KNEE PAIN, RIGHT ICD-719.46 Inactive Adele chiu [facility] Knee pain, left ICD-719.46 Inactive Adele damico [facility] Pharyngitis-Acute ICD-462 Inactive Bertrand Redmond DO Polyuria ICD-788.42 Inactive Yoli Mercado MD P hD Cellulitis, leg, right ICD-682.6 Inactive Yuki Deluna MD Foreign body, ear ICD-931 Inactive Yoli salazar MD PhD Fatigue ICD-780.79 Inactive Ike Deluna MD 201 12/01/06 Headache ICD-784.0 Inactive Adele Feldman LPN 2017 Cough ICD-786.2 Inactive Adele Feldman [employer]CRATCH POLISHER 06/04 SINUSITIS, ACUTE ICD-461.9 Inactive Ike lange MD Fatigue ICD-780.79 Inactive Adele Feldman [employer]CRATCH POLISHER 2017 Bronchitis acute with bronchospasm ICD-466.0 I nactive Bertrand Patel DO Animal bite ICD-919.8 Inactive Adele Feldman LP N Mycoplasma infection ICD-041.81 Inactive Anit a Feldman SCRATCH POLISHER Amenorrhea, secondary ICD-626.0 Inactive Ani ta Feldman [employer]CRATCH POLISHER Left maxillary sinusitis ICD-473.0 Inactive Bertrand Patel DO URI - viral ICD-465.9 Inactive Lina Maher APRN -C Pharyngitis acute ICD-462 Inactive Lina elliott SHREDDED FILLER CUTTER OPERATOR-C Morbid obesity due to excess calories ICD-278.00 Inactive Carla ALBERTO Medication List Medication Instructions Start Date Stop Date Generic Name NDC Status Provider Patient Instruction ZOFRAN 4 MG ORAL TABLET 1 tablet by mouth every 6 hour PRN nausea 2 ONDANSETRON HCL 68161420430 Active Adriana Davalos RN Active CYCLOBENZAPRINE HCL 10 MG ORAL TABLET 1 tablet by mout h three times a day as needed for muscle spasm CYCLOBENZAPRINE HCL 12643462511 Ac tive Lina Maher APRN-C Active HYDROCODONE-ACETAMINOPHEN 7.5-325 MG TABS 1 TAB EVERY 6 HOUR S PRN FOR PAIN HYDROCODONE-ACETAMINOPHEN 49449590876 Active Bertrand Patel DO Active TELMISARTAN 80 MG TABS 1 TABLET PO DAILY FOR BLOOD PRESSURE TELMISARTAN 44148949454 Active Adriana Davalos RN Active MODAFINIL 200 MG TABS 1/2 TABLET PO IN THE AM AND 1/2 TABLET AT NOON MODAFINIL 99886155743 Active Adriana Davalos RN Activ e DULOXETINE HCL 60 MG CPEP 1 CAPSULE PO DAILY DU LOXETINE HCL 20530380055 Active Adriana Davalos RN Active AMLODIPINE 5MG 1 TABLET PO DAILY FOR BLOOD PRESSURE AMLODIPINE BESYLATE 46899251033 Active Adriana Davalos RN Active ALPRAZOLAM 0.5 MG TABS TAKE 1 TABLET BY MOUTH THREE TIMES DAILY 201 02/10/05 ALPRAZOLAM 23417119446 Active Adriana Davalos RN Active SUDAFED 12 HOUR 120 MG ORAL TABLET EXTENDED RELEASE 12 HOUR 1 pill twice daily if for congestion PSEUDOEPHEDRINE HCL 94129308599 Active Silvia Vazquez APRN Active CHERATUSSIN AC 100-10 MG/5ML ORAL SYRUP 5ml po q6hr PRN Cough 20 21/03/15 GUAIFENESIN-CODEINE 04932373568 No Longer Active Silvia Vazquez APRN Active FLUTICASONE PROPIONATE 50 MCG/ACT NASAL SUSPENSION 2 s prays per nostril daily for 2 weeks, then 1 spray each nostril PRN FLUTI CASONE PROPIONATE 50919344244 Active Silvia Vazquez APRN Active EVENING PRIMROSE OIL 1000 MG ORAL CAPSULE 1 capsule once daily EVENING PRIMROSE OIL 88507283115 Active Bertrand Patel DO Active LEVAQUIN 500 MG ORAL TABLET 1 tablet by mouth daily 20 21/06/28 LEVOFLOXACIN 05141226838 No Longer Active Bertrand Patel DO Active PREDNISONE 20 MG ORAL TABLET Take 3 tabs for 3 days, t hen 2 tabs for 3 days, then 1 tab for 3 days PREDNISONE 89350527689 No Rainer fatou Active Galilea Sell SHREDDED FILLER CUTTER OPERATOR Active DOXYCYCLINE HYCLATE 100 MG ORAL CAPSULE 1 cap by mouth twice jong ly DOXYCYCLINE HYCLATE 38470960448 No Longer Active Galilea Sell SHREDDED FILLER CUTTER OPERATOR Active ADDERALL 10 MG ORAL TABLET 1 tab twice daily 2 AMPHETAMINE-DEXTROAMPHETAMINE 80614272088 No Longer Active Nitza Phi llips Scribe Active ZITHROMAX Z-MARTIN 250 MG ORAL TABLET 2 today and then 1 daily for 4 days AZITHROMYCIN 91355898236 No Longer Active Nitza Osman lips Scribe Active BENZONATATE 200 MG ORAL CAPSULE 1 three times a day as neede d for cough BENZONATATE 32890620269 No Longer Active Nitza Osman lips Scribe Active VITAMIN D3 86477 UNIT ORAL CAPSULE 1 pill Week x 4 mo nths for vitamin D deficiency/osteoporosis CHOLECALCIFEROL 51347535231 N o Longer Active Layla Garcia Active BACTROBAN 2 % EXTERNAL CREAM Apply to affected area BID for up to 10 days MUPIROCIN CALCIUM 03281606038 No Longer Active Ike Deluna MD Active CIPRO 500 MG ORAL TABLET 1 tablet by mouth twice daily CIPROFLOXACIN HCL 68517065298 No Longer Active Adriana Bender LPN Active AUGMENTIN 875-125 MG ORAL TABLET 1 po BID x 10 days 18/04/06 AMOXICILLIN-POT CLAVULANATE 23684320805 No Longer Active Adriana Bender LPN Active CYCLOBENZAPRINE HCL 10 MG ORAL TABLET Take 1 tab TID PRN for mus triston pain CYCLOBENZAPRINE HCL 13003177917 No Longer Active Bertrand Patel DO Active PERFECTOSALTIAGO PERLES 100 MG ORAL CAPSULE 1 tablet by mouth 3 times da juan pablo BENZONATATE 37903195951 No Longer Active Bertrand Patel DO Ac tive NEBULIZER use as directed NEBULIZERS 54069030390 No Longer Active Bertrand Patel DO Active ALBUTEROL SULFATE (2.5 MG/3ML) 0.083% INHALATION NEBUL IZATION SOLUTION one vial per nebulizer every 4-6 hours as needed ALBUTERO L SULFATE 76796383061 No Longer Active Bertrand Patel DO Active SYMBICORT 160-4.5 MCG/ACT INHALATION AEROSOL 2 puffs BID 9 BUDESONIDE-FORMOTEROL FUMARATE 91765838145 No Longer Active Bertrand Patel DO Active PREDNISONE 20 MG ORAL TABLET take 3 tabs daily for 3 d ays, 2 tabs daily for 3 days, 1 tab daily for 3 days, 1/2 tab daily for 3 days 08/02 PREDNISONE 07207562257 No Longer Active Silvia Arell SHREDDED FILLER CUTTER OPERATOR Active AZITHROMYCIN 250 MG ORAL TABLET Take 2 tabs po today then 1 tab po daily AZITHROMYCIN 12037536076 No Longer Active Silvia Arell SHREDDED FILLER CUTTER OPERATOR Active AUGMENTIN 875-125 MG ORAL TABLET 1 po BID x 10 days 20 19/07/13 AMOXICILLIN-POT CLAVULANATE 60724659047 No Longer Active Adriana Bender LPN Active CHEWABLE CALCIUM 500-200-40 MG-UNT-MCG ORAL TABLET CHEWABLE 1 chew tab bid CALCIUM-VITAMIN D-VITAMIN K 02816324007 Active Silvia Are ll SHREDDED FILLER CUTTER OPERATOR Active EQ COMPLETE MULTIVIT ADULT 50+ ORAL TABLET 1 tab po bid MULTIPLE VITAMINS-MINERALS 34154367678 Active Silvia Arell SHREDDED FILLER CUTTER OPERATOR Active LORTAB 7.5-500 MG ORAL TABLET take one po Q6 hours 201 09/12/01 HYDROCODONE-ACETAMINOPHEN 46152839674 No Longer Active Nirmal Robbins RN Active [facility] MELATONIN 5-10 MG ORAL TABLET EXTENDED RELEASE Jair e one by mouth daily at bedtime MELATONIN-PYRIDOXINE 78940233709 No Longer Acti ve Bertrand Patel DO Active VITAMIN E 200 UNIT ORAL CAPSULE 1 cap po qd VITAM IN E 68239086201 No Longer Active Bertrand Patel DO Active B-12 1000 MCG ORAL CAPSULE 1 tab daily CYANOCOB ALAMIN 73633706665 No Longer Active Bertrand Patel DO Active METFORMIN HCL 500 MG ORAL TABLET 1 bid METFOR MIN HCL 20082263935 No Longer Active Bertrand Patel DO Active FUROSEMIDE 20 MG ORAL TABLET 1 pill by mouth daily if needed for edema FUROSEMIDE 75140542948 No Longer Active Bertrand Patel DO Active PRAVASTATIN SODIUM 20 MG ORAL TABLET 1 tablet by mouth daily at bedtime PRAVASTATIN SODIUM 95245507795 No Longer Active Bertrand Patel DO Active AUGMENTIN 875-125 MG ORAL TABLET 1 pill by mouth twice daily 201 09/10/00 AMOXICILLIN-POT CLAVULANATE 00944196215 No Longer Active Yoli Mercado MD PhD Active LEVAQUIN 500 MG ORAL TABLET 1 pill by mouth daily 2013 LEVOFLOXACIN 13964864863 No Longer Active Yoli Mercado MD PhD Acti ve MICARDIS 80 MG ORAL TABLET 1 tablet daily for blood pressure 07/30 TELMISARTAN 40780623026 Active Adriana Davalos RN Active MICARDIS HCT 80-12.5 MG ORAL TABLET 1 qd TELMISARTAN-HCTZ 07434674700 No Longer Active Bertrand Patel DO Active CINNAMON ALPHA LIPOIC AC CMPLX CAPSULE by mouth twice a day in AM by mouth twice a day in PM ALPHA LIPOIC [id number] CA PS 15196217511 No Longer Active Bertrand Patel DO Active AZITHROMYCIN 500 MG INTRAVENOUS SOLUTION RECONSTITUTED 1 po q da y AZITHROMYCIN 70425017112 No Longer Active Bertrand Patel DO A ctive CYMBALTA 30 MG ORAL CAPSULE DELAYED RELEASE PARTICLES 1 cap by mouth daily DULOXETINE HCL 91353684682 No Longer Active Bertrand marquez DO Active CYMBALTA 60 MG ORAL CAPSULE DELAYED RELEASE PARTICLES 1 cap by mouth daily DULOXETINE HCL 14896784178 Active Adriana Davalos RN Active WELLBUTRIN 75 MG ORAL TABLET 2 times daily BUPR OPION HCL 33661749602 No Longer Active Bertrand Patel DO Active PROAIR HFA 108 (90 Base) MCG/ACT INHALATION AEROSOL SO LUTION take one to two puffs po Q4-6 hour prn cough and shortness of breath ALBUTEROL SULFATE 93443009629 Active Bertrand Patel DO Active AZITHROMYCIN 250 MG ORAL TABLET take 2 po today then take 1 po days 2-5 AZITHROMYCIN 74750249728 No Longer Active Adolfo OSORIO Active PERMETHRIN 5 % EXTERNAL CREAM apply neck to toes tonig ht and then rinse off in morning. repeat at 7 days PERMETHRIN 75584741730 No Longer Active Adolfo OSORIO Active AMOXICILLIN 500 MG ORAL CAPSULE 2 po BID x 10 days 201 07/15/00 AMOXICILLIN 42750762458 No Longer Active Yoli Mercado MD PhD Acti ve INSUPEN ULTRAFIN 31G X 6 MM USE DIRECTED INSULIN PEN NEEDLE 74685217932 No Longer Active Bertrand Patel DO Active TRANSDERM-SCOP (1.5 MG) 1 MG/3DAYS TRANSDERMAL PATCH 7 2 HOUR 1 patch applied behind ear q 3 day SCOPOLAMINE BASE 35975378122 No Lo nger Active Bertrand Patel DO Active MACRODANTIN 100 MG ORAL CAPSULE one p.o. b.i.d. x2 weeks NITROFURANTOIN MACROCRYSTAL 90893102319 No Longer Active Bertrand Patel DO Active MACRODANTIN 100 MG ORAL CAPSULE one p.o. b.i.d. x2 weeks MACRODANTIN 100 MG ORAL CAPSULE 9509385 NITROFURANTOIN MACROCRYSTAL Inactive TRANSDERM-SCOP (1.5 MG) 1 [...] days PERMETHRIN 5 % EXTER NAL CREAM 867646 PERMETHRIN Inactive WELLBUTRIN 75 MG ORAL TABLET 2 times daily WELLBUTRIN 75 MG ORAL TABLET BUPROPION HCL Inactive CYMBALTA 30 MG ORAL CAPSULE DELAYED RELEASE PARTICLES 1 cap by mouth daily CYMBALTA 30 MG ORAL CAPSULE DELAYED RELE ASE PARTICLES 121266 DULOXETINE HCL Inactive AZITHROMYCIN 500 MG INTRAVENOUS SOLUTION RECONSTITUTED 1 po q da y AZITHROMYCIN 500 MG INTRAVENOUS SOLUTION RECONSTITUTED 92108 024414 AZITHROMYCIN Inactive CINNAMON ALPHA LIPOIC AC CMPLX CAPSULE by mouth twice a day in AM by mouth twice a day in PM CINNAMON ALPHA LIPOIC AC CMPLX CAPSULE ALPHA LIPOIC [id number]-[id number]-PIPLBLVM CAPS Inactive MICARDIS HCT 80-12.5 MG ORAL TABLET 1 qd 07/30 MICARDIS HCT 80-12.5 MG ORAL TABLET 283889 TELMISARTAN-HCTZ Inactive PRAVASTATIN SODIUM 20 MG ORAL TABLET 1 tablet by mouth daily at bedtime PRAVASTATIN SODIUM 20 MG ORAL TABLET 121262 PRAVASTATIN SODIUM Inactive FUROSEMIDE 20 MG ORAL TABLET 1 pill by mouth daily if needed for edema FUROSEMIDE 20 MG ORAL TABLET 639602 FUROSEMIDE Inactive METFORMIN HCL 500 MG ORAL TABLET 1 bid METFORMIN HCL 500 MG ORAL TABLET 121219 METFORMIN HCL Inactive B-12 1000 MCG ORAL CAPSULE 1 tab daily B -12 1000 MCG ORAL CAPSULE CYANOCOBALAMIN Inactive VITAMIN E 200 UNIT ORAL CAPSULE 1 cap po qd 1 VITAMIN E 200 UNIT ORAL CAPSULE 7683011 VITAMIN E Inactive [facility] MELATONIN 5-10 MG [...] po daily AZITHROMYCIN 250 MG ORAL TABLET 784610 AZITHROMY BERNARDO Inactive SYMBICORT 160-4.5 MCG/ACT INHALATION AEROSOL 2 puffs BID 9 SYMBICORT 160-4.5 MCG/ACT INHALATION AEROSOL 3350211 BUDESONID E-FORMOTEROL FUMARATE Inactive ALBUTEROL SULFATE (2.5 MG/3ML) 0.083% INHALATION NEBUL IZATION SOLUTION one vial per nebulizer every 4-6 hours as needed ALBUTEROL SULFATE (2.5 MG/3ML) 0.083% INHALATION NEBULIZATION SOLUTION 539792 ALBUTER OL SULFATE Inactive NEBULIZER use as directed NEBULIZER NEBULI ZERS Inactive TESSALON PERLES 100 MG ORAL CAPSULE 1 tablet by mouth 3 times da juan pablo TESSALON PERLES 100 MG ORAL CAPSULE 452373 BENZONATATE Inactive CYCLOBENZAPRINE HCL 10 MG ORAL TABLET Take 1 tab TID PRN for mus triston pain CYCLOBENZAPRINE HCL 10 MG ORAL TABLET 546451 CYCLOBENZA ANUJA HCL Inactive AUGMENTIN 875-125 MG ORAL TABLET 1 po BID x 10 days 20 18/04/06 AUGMENTIN 875-125 MG ORAL TABLET AMOXICILLIN-POT CLAVULANATE Inactive BACTROBAN 2 % EXTERNAL CREAM Apply to affected area BID for up to 10 days BACTROBAN 2 % EXTERNAL CREAM MUPIROCIN CA LCIUM Inactive VITAMIN D3 61922 UNIT ORAL CAPSULE 1 pill Week x 4 mo nths for vitamin D deficiency/osteoporosis VITAMIN D3 10578 UNIT ORAL CAPSULE CHOLECALCIFEROL Inactive BENZONATATE 200 MG ORAL CAPSULE 1 three times a day as neede d for cough BENZONATATE 200 MG ORAL CAPSULE 956764 BENZONATA TE Inactive ZITHROMAX Z-MARTIN 250 MG ORAL TABLET 2 today and then 1 daily for 4 days ZITHROMAX Z-MARTIN 250 MG ORAL TABLET 626506 AZITHR OMYCIN Inactive ADDERALL 10 MG ORAL TABLET 1 tab twice daily 2 ADDERALL 10 MG ORAL TABLET 242767 AMPHETAMINE-DEXTROAMPHETAMINE Inactive LEVAQUIN 500 MG ORAL TABLET 1 tablet by mouth daily 21/06/28 LEVAQUIN 500 MG ORAL TABLET 054607 LEVOFLOXACIN Inactive AMOXICILLIN 500 MG ORAL CAPSULE 2 po BID x 10 days 201 07/15/00 AMOXICILLIN 500 MG ORAL CAPSULE 439615 AMOXICILLIN Inactive AZITHROMYCIN 250 MG ORAL TABLET take 2 po today then take 1 po days 2-5 AZITHROMYCIN 250 MG ORAL TABLET 790368 AZITHROMY BERNARDO Inactive LEVAQUIN 500 MG ORAL TABLET 1 pill by mouth daily 2013 LEVAQUIN 500 MG ORAL TABLET 487386 LEVOFLOXACIN Inactive AUGMENTIN 875-125 MG ORAL TABLET 1 pill by mouth twice daily 201 09/10/00 AUGMENTIN 875-125 MG ORAL TABLET AMOXICILLIN-POT CLAVULANATE Inactive AUGMENTIN 875-125 MG ORAL TABLET 1 po BID x 10 days 19/07/13 AUGMENTIN 875-125 MG ORAL TABLET AMOXICILLIN-POT CLAVULANATE Inactive PREDNISONE 20 MG ORAL TABLET take 3 tabs daily for 3 d ays, 2 tabs daily for 3 days, 1 tab daily for 3 days, 1/2 tab daily for 3 days 08/02 PREDNISONE 20 MG ORAL TABLET 938278 PREDNISONE Inactive CIPRO 500 MG ORAL TABLET 1 tablet by mouth twice daily CIPRO 500 MG ORAL TABLET 810996 CIPROFLOXACIN HCL Inactive DOXYCYCLINE HYCLATE 100 MG ORAL CAPSULE 1 cap by mouth twice jong ly DOXYCYCLINE HYCLATE 100 MG ORAL CAPSULE 4803080 DOXYCYCL INE HYCLATE Inactive PREDNISONE 20 MG ORAL TABLET Take 3 tabs for 3 days, t hen 2 tabs for 3 days, then 1 tab for 3 days PREDNISONE 20 MG ORAL TABLET 312 615 PREDNISONE Inactive CHERATUSSIN AC 100-10 MG/5ML ORAL SYRUP 5ml po q6hr PRN Cough 20 21/03/15 CHERATUSSIN AC 100-10 MG/5ML ORAL SYRUP 907217 GUAIFENE SIN-CODEINE Inactive Vital Signs Date Name [...] Lab Report: Comp. Metabolic Panel, [facility] - Chemistry sodium, serum 140 mmol/L 715-213 7709/03/25 carbon dioxide, venous blood 33.2 mmol/L 21.0-32 [...] mg/dL 0.00-1.00 Lab Report: Comp. Metabolic Panel, [facility] - Lab Alkaline phosphatase 91 50-136 Lab [...] negative Strep Screen Lot Number (CLIA Waived) [id number] Strep Screen Exp Date (CLIA Waived) 05/02/2020 Encounters Code Encounter Date Provider Facility CPT-68278 [id number] Vst-Est Level III 16:58:04 CDT Me nae Vazquez [facility]-13533 [id number] Vst-Est Level IV 14:46:36 CENTER DIRECTOR LEAD TEACHER Foster Patel [facility] CPT-53293 Level 3 Est. Patient 12:37:30 CENTER DIRECTOR LEAD TEACHER Galilea Se [facility] CPT-98955 Level 3 Est. Patient 11:40:23 CDT Bertrand marquez [facility] CPT-27731 Level 4 Est. Patient 15:33:35 CENTER DIRECTOR LEAD TEACHER Bertrand marquez [facility] CPT-47191 Level 4 Est. Patient 12:31:54 CDT Bertrand marquez [facility]-20446 Level 3 Est. Patient 11:27:00 CENTER DIRECTOR LEAD TEACHER Ike Deluna MD [facility]-35011 Level 3 Est. Patient 08:50:57 CENTER DIRECTOR LEAD TEACHER Silvia Are [facility] CPT-00108 Level 3 Est. Patient 10:04:13 CDT Bertrand marquez [facility] CPT-37905 Level 4 Est. Patient 16:02:10 CENTER DIRECTOR LEAD TEACHER Silvia Are [facility] CPT-74281 Level 3 Est. Patient 13:04:54 CENTER DIRECTOR LEAD TEACHER Silvia Are [facility]-62604 Level 3 Est. Patient 12:56:37 CDT Bertrand marquez [facility] CPT-07335 Level 3 Est. Patient 19:12:03 CDT Yoli tolbert MD [facility] CPT-35912 Level 3 Est. Patient 14:36:01 CDT Yoli tolbert MD PhD [facility] CPT-48366 Level 2 Est. Patient 08:00:22 CDT Jcarlos dc MD [facility]-16440 Level 3 Est. Patient 19:06:55 CDT Bertrand marquez [facility] CPT-08542 Level 3 Est. Patient 10:08:23 CENTER DIRECTOR LEAD TEACHER Bertrand Jacklyn marquez [facility] CPT-51455 Level 3 Est. Patient 16:37:54 CENTER DIRECTOR LEAD TEACHER Bertrand Jacklyn [place] marquez [facility] CPT-06921 Level 3 Est. Patient 11:31:59 CENTER DIRECTOR LEAD TEACHER Bertrand Jacklyn marquez [facility] CPT-36369 Level 3 Est. Patient 10:20:08 CDT Gennadot Porfirioridge villasenor [facility] CPT-00931 Level 3 Est. Patient 13:45:20 CDT Sanket buckley [facility] CPT-73813 Level 3 Est. Patient 12:51:06 CDT Adolfo villasenor [facility] CPT-22177 Level 3 Est. Patient 11:22:51 CENTER DIRECTOR LEAD TEACHER Yoli tolbert MD PhD [facility] CPT-41531 Level 3 Est. Patient 13:33:19 CDT Bertrand Villasenor [place] marquez [facility] Procedures Code Procedure Name Date Entry Date Standard Desc ription CPT-03528 Sono abd valle iinc RUQ LUQ ascites search or pylorus - XRAY USE ONLY 09:11:06 CDT CPT-26265 Venipuncture Draw Fee 16:30:28 CDT [id number] ([id number]) Influenza immunization administe red or previously received 15:55:57 CDT CPT-27820 Wound Culture - LAB USE ONLY 15:45:25 CDT 2 CPT-48204 Venipuncture Draw Fee 10:23:01 CDT CPT-J0696 Rocephin 1000 mg (Ceftriaxone) 16:20:30 CENTER DIRECTOR LEAD TEACHER CPT-69252 Abx/Therapy Injection 16:20:29 CENTER DIRECTOR LEAD TEACHER CPT-J0696 Rocephin 1gm Inj Solr 15:51:59 CENTER DIRECTOR LEAD TEACHER CPT-68965 Chest 2V Frontal and Lat 15:20:28 CENTER DIRECTOR LEAD TEACHER 07/22 CPT-69443 Breathing Tx 14:51:55 CENTER DIRECTOR LEAD TEACHER CPT-78316 Breathing Tx 09:57:16 CENTER DIRECTOR LEAD TEACHER CPT-71639 Knee comp 4/> V 11:58:06 CENTER DIRECTOR LEAD TEACHER
--- OUTSIDE RECORDS SUMMARY | 2019-11-13 09:44 | XMS REPORT | Clinical Summary ---
Author Author Admin, Enrique Adamson Organization [employer] Address Unknown Phone Unavailable Allergies, Adverse Reactions, [...] Mycoplasma infection 041.81 Resolved Abiel ti Harpreet Scribe Mycoplasma infection in cond itions classified elsewhere [...] URI - viral 465.9 Resolved Lina Maher [employer] LEARNING SUPPORT TEACHER-C Acute upper respiratory infections of unspecified site Pharyngitis acute 462 Resolved Lina Maher [employer] LEARNING SUPPORT TEACHER -C Acute pharyngitis Abdominal pain, upper 789.09 Active Lina Adamson PRN-C Abdominal pain, other specified site; multiple sites Flank pain, left 789.09 Active Lina Maher [employer] LEARNING SUPPORT TEACHER-C Abdominal pain, other specified site; multiple sites Morbid obesity due to excess calories 278.00 Resolved Lina Maher [employer] LEARNING SUPPORT TEACHER-C Obesity, unspecified Other abnormal findings in urine Active 202 Lina Maher [employer] LEARNING SUPPORT TEACHER-C Generalized colicky abdominal pain 789.07 Active 2 Lina Maher APRN-C Abdominal pain, generalized SCABIES ICD-133.0 Inactive Yoli Mercado MD PhD 201 07/14/20 HEALTH SCREENING ICD-V70.0 Inactive Yoli sabillon MD PhD COUGH ICD-786.2 Inactive Yoli Mercado MD PhD 201 09/09/28 FH DIABETES ICD-V18.0 Inactive Yoli Mercado MD PhD 20 14/02/29 SHORTNESS OF BREATH ICD-786.05 Inactive Yoli Mercado MD PhD RIB PAIN, RIGHT SIDED ICD-786.50 Inactive Yoli Mercado MD PhD SINUSITIS, FRONTAL, ACUTE ICD-461.1 Inactive Yoli Mercado MD PhD Knee pain, left ICD-719.46 Inactive Adele damico CONCRETE FINISHING 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 EDEMA LEG ICD-782.3 Inactive Adele Feldman LPN 201 01/01/02 Pharyngitis-Acute ICD-462 Inactive Bertrand Redmond DO Polyuria ICD-788.42 Inactive Yoli Mercado MD P hD KNEE PAIN, RIGHT ICD-719.46 Inactive Adele chiu CONCRETE FINISHING 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 Foreign body, ear ICD-931 Inactive Yoli salazar MD PhD Fatigue ICD-780.79 Inactive Ike Deulna MD 201 12/01/06 Headache ICD-784.0 Inactive Adele Feldman LPN 2017 Cough ICD-786.2 Inactive Adele Feldman LPN 06/04 SINUSITIS, ACUTE ICD-461.9 Inactive Ike lange MD Fatigue ICD-780.79 Inactive Adele Feldman CONCRETE FINISHING 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 2017 Cellulitis, leg, right ICD-682.6 Inactive Yuki Deluna MD Animal bite ICD-919.8 Inactive Adele Feldman LP N Mycoplasma infection ICD-041.81 Inactive Anit a Gaston HUNGN Amenorrhea, secondary ICD-626.0 Inactive Malindai quinton Gaston HUNGN Left maxillary sinusitis ICD-473.0 Inactive Bertrand Patel DO URI - viral ICD-465.9 Inactive Lina Maher APRN -Raul Pharyngitis acute ICD-462 Inactive Lina elliott APRN-C Morbid obesity due to excess calories ICD-278.00 Inactive Carla Eric Snow Bronchitis acute with bronchospasm ICD-466.0 I nactive Bertrand Patel DO Medication List Medication Instructions Start Date Stop Date Generic Name NDC Status Provider Patient Instruction ZOFRAN 4 MG ORAL TABLET 1 tablet by mouth every 6 hour PRN nausea 2 ONDANSETRON HCL 86219720597 Active Adriana Davalos RN Active CYCLOBENZAPRINE HCL 10 MG ORAL TABLET 1 tablet by mout h three times a day as needed for muscle spasm CYCLOBENZAPRINE HCL 39476875744 Ac tive Lina Maher APRN-C Active HYDROCODONE-ACETAMINOPHEN 7.5-325 MG TABS 1 TAB EVERY 6 HOUR S PRN FOR PAIN HYDROCODONE-ACETAMINOPHEN 96876734240 Active Bertrand Patel DO Active TELMISARTAN 80 MG TABS 1 TABLET PO DAILY FOR BLOOD PRESSURE TELMISARTAN 78175824405 Active Adriana Davalos RN Active MODAFINIL 200 MG TABS 1/2 TABLET PO IN THE AM AND 1/2 TABLET AT NOON MODAFINIL 11384903615 Active Adriana Davalos RN Activ e DULOXETINE HCL 60 MG CPEP 1 CAPSULE PO DAILY DU LOXETINE HCL 25355184886 Active Adriana Davalos RN Active AMLODIPINE 5MG 1 TABLET PO DAILY FOR BLOOD PRESSURE AMLODIPINE BESYLATE 48556068039 Active Adriana Davalos RN Active ALPRAZOLAM 0.5 MG TABS TAKE 1 TABLET BY MOUTH THREE TIMES DAILY 201 02/10/05 ALPRAZOLAM 72720416630 Active Adriana Davalos RN Active SUDAFED 12 HOUR 120 MG ORAL TABLET EXTENDED RELEASE 12 HOUR 1 pill twice daily if for congestion PSEUDOEPHEDRINE HCL 24987860195 Active Silvia Vazquez APRN Active CHERATUSSIN AC 100-10 MG/5ML ORAL SYRUP 5ml po q6hr PRN Cough 20 21/03/15 GUAIFENESIN-CODEINE 76754001192 No Longer Active Silvia Vazquez APRN Active FLUTICASONE PROPIONATE 50 MCG/ACT NASAL SUSPENSION 2 s prays per nostril daily for 2 weeks, then 1 spray each nostril PRN FLUTI CASONE PROPIONATE 00958400467 Active Silvia Vazquez APRN Active EVENING PRIMROSE OIL 1000 MG ORAL CAPSULE 1 capsule once daily EVENING PRIMROSE OIL 89330103005 Active Bertrand Patel DO Active LEVAQUIN 500 MG ORAL TABLET 1 tablet by mouth daily 20 21/06/28 LEVOFLOXACIN 52046266002 No Longer Active Bertrand Patel DO Active PREDNISONE 20 MG ORAL TABLET Take 3 tabs for 3 days, t hen 2 tabs for 3 days, then 1 tab for 3 days PREDNISONE 35776935603 No Rainer fatou Active Galilea Sell [employer] S[employer] LEARNING SUPPORT TEACHER Active DOXYCYCLINE HYCLATE 100 MG ORAL CAPSULE 1 cap by mouth twice jong ly DOXYCYCLINE HYCLATE 41172935198 No Longer Active Galilea Sell [employer] SCHOOL LEARNING SUPPORT TEACHER Active ADDERALL 10 MG ORAL TABLET 1 tab twice daily 2 AMPHETAMINE-DEXTROAMPHETAMINE 20923876673 No Longer Active Nitza Phi llips Scribe Active ZITHROMAX Z-MARTIN 250 MG ORAL TABLET 2 today and then 1 daily for 4 days AZITHROMYCIN 95507030006 No Longer Active Nitza Osman lips Scribe Active BENZONATATE 200 MG ORAL CAPSULE 1 three times a day as neede d for cough BENZONATATE 86681148126 No Longer Active Nitza Osman lips Scribe Active VITAMIN D3 75361 UNIT ORAL CAPSULE 1 pill Week x 4 mo nths for vitamin D deficiency/osteoporosis CHOLECALCIFEROL 20347601215 N o Longer Active Layla Garcia Active BACTROBAN 2 % EXTERNAL CREAM Apply to affected area BID for up to 10 days MUPIROCIN CALCIUM 97384109706 No Longer Active Ike Deluna MD Active CIPRO 500 MG ORAL TABLET 1 tablet by mouth twice daily CIPROFLOXACIN HCL 78894182836 No Longer Active Adriana Bender LPN Active AUGMENTIN 875-125 MG ORAL TABLET 1 po BID x 10 days 18/04/06 AMOXICILLIN-POT CLAVULANATE 43996763043 No Longer Active Adriana Bender LPN Active CYCLOBENZAPRINE HCL 10 MG ORAL TABLET Take 1 tab TID PRN for mus triston pain CYCLOBENZAPRINE HCL 17037368662 No Longer Active Bertrand Patel DO Active PERFECTOSALTIAGO PERLES 100 MG ORAL CAPSULE 1 tablet by mouth 3 times da juan pablo BENZONATATE 33117161427 No Longer Active Bertrand Patel DO Ac tive NEBULIZER use as directed NEBULIZERS 43224275576 No Longer Active Bertrand Patel DO Active ALBUTEROL SULFATE (2.5 MG/3ML) 0.083% INHALATION NEBUL IZATION SOLUTION one vial per nebulizer every 4-6 hours as needed ALBUTERO L SULFATE 06783311296 No Longer Active Bertrand Patel DO Active SYMBICORT 160-4.5 MCG/ACT INHALATION AEROSOL 2 puffs BID 9 BUDESONIDE-FORMOTEROL FUMARATE 56617453952 No Longer Active Bertrand Patel DO Active PREDNISONE 20 MG ORAL TABLET take 3 tabs daily for 3 d ays, 2 tabs daily for 3 days, 1 tab daily for 3 days, 1/2 tab daily for 3 days 08/02 PREDNISONE 15262742872 No Longer Active Silvia Arell [employer] LEARNING SUPPORT TEACHER Active AZITHROMYCIN 250 MG ORAL TABLET Take 2 tabs po today then 1 tab po daily AZITHROMYCIN 99166460762 No Longer Active Silvia Arell [employer] S[employer]OL LEARNING SUPPORT TEACHER Active AUGMENTIN 875-125 MG ORAL TABLET 1 po BID x 10 days 20 19/07/13 AMOXICILLIN-POT CLAVULANATE 86874228757 No Longer Active Adriana Bender LPN Active CHEWABLE CALCIUM 500-200-40 MG-UNT-MCG ORAL TABLET CHEWABLE 1 chew tab bid CALCIUM-VITAMIN D-VITAMIN K 63234099086 Active Silvia Are ll [employer] S[employer]OL LEARNING SUPPORT TEACHER Active EQ COMPLETE MULTIVIT ADULT 50+ ORAL TABLET 1 tab po bid MULTIPLE VITAMINS-MINERALS 95958125642 Active Silvia Arell HIGH S[employer]OL LEARNING SUPPORT TEACHER Active LORTAB 7.5-500 MG ORAL TABLET take one po Q6 hours 201 09/12/01 HYDROCODONE-ACETAMINOPHEN 49193393691 No Longer Active Nirmal Robbins RN Active [facility] MELATONIN 5-10 MG ORAL TABLET EXTENDED RELEASE Jair e one by mouth daily at bedtime MELATONIN-PYRIDOXINE 55142560243 No Longer Acti ve Bertrand Patel DO Active VITAMIN E 200 UNIT ORAL CAPSULE 1 cap po qd VITAM IN E 05107933232 No Longer Active Bertrand Patel DO Active B-12 1000 MCG ORAL CAPSULE 1 tab daily CYANOCOB ALAMIN 25842173159 No Longer Active Bertrand Patel DO Active METFORMIN HCL 500 MG ORAL TABLET 1 bid METFOR MIN HCL 34713880782 No Longer Active Bertrand Patel DO Active FUROSEMIDE 20 MG ORAL TABLET 1 pill by mouth daily if needed for edema FUROSEMIDE 11004199895 No Longer Active Bertrand Patel DO Active PRAVASTATIN SODIUM 20 MG ORAL TABLET 1 tablet by mouth daily at bedtime PRAVASTATIN SODIUM 33767647167 No Longer Active Bertrand Patel DO Active AUGMENTIN 875-125 MG ORAL TABLET 1 pill by mouth twice daily 201 09/10/00 AMOXICILLIN-POT CLAVULANATE 99920715242 No Longer Active Yoli Mercado MD PhD Active LEVAQUIN 500 MG ORAL TABLET 1 pill by mouth daily 2013 LEVOFLOXACIN 39745308497 No Longer Active Yoli Mercado MD PhD Acti ve MICARDIS 80 MG ORAL TABLET 1 tablet daily for blood pressure 07/30 TELMISARTAN 61370124789 Active Adriana Davalos RN Active MICARDIS HCT 80-12.5 MG ORAL TABLET 1 qd TELMISARTAN-HCTZ 73966120206 No Longer Active Bertrand Patel DO Active CINNAMON ALPHA LIPOIC AC CMPLX CAPSULE by mouth twice a day in AM by mouth twice a day in PM ALPHA LIPOIC QAGG-[id number]-LUPXPPOO CA PS 36872012119 No Longer Active Bertrand Patel DO Active AZITHROMYCIN 500 MG INTRAVENOUS SOLUTION RECONSTITUTED 1 po q da y AZITHROMYCIN 39754232086 No Longer Active Bertrand Patel DO A ctive CYMBALTA 30 MG ORAL CAPSULE DELAYED RELEASE PARTICLES 1 cap by mouth daily DULOXETINE HCL 78999740870 No Longer Active Bertrand marquez DO Active CYMBALTA 60 MG ORAL CAPSULE DELAYED RELEASE PARTICLES 1 cap by mouth daily DULOXETINE HCL 44749087476 Active Adriana Davalos RN Active WELLBUTRIN 75 MG ORAL TABLET 2 times daily BUPR OPION HCL 93563430105 No Longer Active Bertrand Patel DO Active PROAIR HFA 108 (90 Base) MCG/ACT INHALATION AEROSOL SO LUTION take one to two puffs po Q4-6 hour prn cough and shortness of breath ALBUTEROL SULFATE 01059233662 Active Bertrand Patel DO Active AZITHROMYCIN 250 MG ORAL TABLET take 2 po today then take 1 po days 2-5 AZITHROMYCIN 14863369337 No Longer Active Adolfo OSORIO Active PERMETHRIN 5 % EXTERNAL CREAM apply neck to toes tonig ht and then rinse off in morning. repeat at 7 days PERMETHRIN 97558576228 No Longer Active Adolfo OSORIO Active AMOXICILLIN 500 MG ORAL CAPSULE 2 po BID x 10 days 201 07/15/00 AMOXICILLIN 29340648764 No Longer Active Yoli Mercado MD PhD Acti ve INSUPEN ULTRAFIN 31G X 6 MM USE DIRECTED INSULIN PEN NEEDLE 03495954736 No Longer Active Bertrand Patel DO Active TRANSDERM-SCOP (1.5 MG) 1 MG/3DAYS TRANSDERMAL PATCH 7 2 HOUR 1 patch applied behind ear q 3 day SCOPOLAMINE BASE 19340154226 No Lo nger Active Bertrand Patel DO Active MACRODANTIN 100 MG ORAL CAPSULE one p.o. b.i.d. x2 weeks NITROFURANTOIN MACROCRYSTAL 93439817367 No Longer Active Bertrand Patel DO Active MACRODANTIN 100 MG ORAL CAPSULE one p.o. b.i.d. x2 weeks MACRODANTIN 100 MG ORAL CAPSULE 2050815 NITROFURANTOIN MACROCRYSTAL Inactive TRANSDERM-SCOP (1.5 MG) 1 [...] days PERMETHRIN 5 % EXTER NAL CREAM 704636 PERMETHRIN Inactive WELLBUTRIN 75 MG ORAL TABLET 2 times daily WELLBUTRIN 75 MG ORAL TABLET BUPROPION HCL Inactive CYMBALTA 30 MG ORAL CAPSULE DELAYED RELEASE PARTICLES 1 cap by mouth daily CYMBALTA 30 MG ORAL CAPSULE DELAYED RELE ASE PARTICLES 853925 DULOXETINE HCL Inactive AZITHROMYCIN 500 MG INTRAVENOUS SOLUTION RECONSTITUTED 1 po q da y AZITHROMYCIN 500 MG INTRAVENOUS SOLUTION RECONSTITUTED 41135 972866 AZITHROMYCIN Inactive CINNAMON ALPHA LIPOIC AC CMPLX CAPSULE by mouth twice a day in AM by mouth twice a day in PM CINNAMON ALPHA LIPOIC AC CMPLX CAPSULE ALPHA LIPOIC [id number] CAPS Inactive MICARDIS HCT 80-12.5 MG ORAL TABLET 1 qd 07/30 MICARDIS HCT 80-12.5 MG ORAL TABLET 703156 TELMISARTAN-HCTZ Inactive PRAVASTATIN SODIUM 20 MG ORAL TABLET 1 tablet by mouth daily at bedtime PRAVASTATIN SODIUM 20 MG ORAL TABLET 457318 PRAVASTATIN SODIUM Inactive FUROSEMIDE 20 MG ORAL TABLET 1 pill by mouth daily if needed for edema FUROSEMIDE 20 MG ORAL TABLET 478971 FUROSEMIDE Inactive METFORMIN HCL 500 MG ORAL TABLET 1 bid METFORMIN HCL 500 MG ORAL TABLET 203772 METFORMIN HCL Inactive B-12 1000 MCG ORAL CAPSULE 1 tab daily B -12 1000 MCG ORAL CAPSULE CYANOCOBALAMIN Inactive VITAMIN E 200 UNIT ORAL CAPSULE 1 cap po qd 1 VITAMIN E 200 UNIT ORAL CAPSULE 9143580 VITAMIN E Inactive [facility] MELATONIN 5-10 MG [...] po daily AZITHROMYCIN 250 MG ORAL TABLET 632155 AZITHROMY BERNARDO Inactive SYMBICORT 160-4.5 MCG/ACT INHALATION AEROSOL 2 puffs BID 9 SYMBICORT 160-4.5 MCG/ACT INHALATION AEROSOL 2878431 BUDESONID E-FORMOTEROL FUMARATE Inactive ALBUTEROL SULFATE (2.5 MG/3ML) 0.083% INHALATION NEBUL IZATION SOLUTION one vial per nebulizer every 4-6 hours as needed ALBUTEROL SULFATE (2.5 MG/3ML) 0.083% INHALATION NEBULIZATION SOLUTION 094738 ALBUTER OL SULFATE Inactive NEBULIZER use as directed NEBULIZER NEBULI ZERS Inactive TESSALON PERLES 100 MG ORAL CAPSULE 1 tablet by mouth 3 times da juan pablo TESSALON PERLES 100 MG ORAL CAPSULE 446148 BENZONATATE Inactive CYCLOBENZAPRINE HCL 10 MG ORAL TABLET Take 1 tab TID PRN for mus triston pain CYCLOBENZAPRINE HCL 10 MG ORAL TABLET 415731 CYCLOBENZA ANUJA HCL Inactive AUGMENTIN 875-125 MG ORAL TABLET 1 po BID x 10 days 20 18/04/06 AUGMENTIN 875-125 MG ORAL TABLET AMOXICILLIN-POT CLAVULANATE Inactive BACTROBAN 2 % EXTERNAL CREAM Apply to affected area BID for up to 10 days BACTROBAN 2 % EXTERNAL CREAM MUPIROCIN CA LCIUM Inactive VITAMIN D3 67231 UNIT ORAL CAPSULE 1 pill Week x 4 mo nths for vitamin D deficiency/osteoporosis VITAMIN D3 86388 UNIT ORAL CAPSULE CHOLECALCIFEROL Inactive BENZONATATE 200 MG ORAL CAPSULE 1 three times a day as neede d for cough BENZONATATE 200 MG ORAL CAPSULE 110455 BENZONATA TE Inactive ZITHROMAX Z-MARTIN 250 MG ORAL TABLET 2 today and then 1 daily for 4 days ZITHROMAX Z-MARTIN 250 MG ORAL TABLET 956168 AZITHR OMYCIN Inactive ADDERALL 10 MG ORAL TABLET 1 tab twice daily 2 ADDERALL 10 MG ORAL TABLET 021040 AMPHETAMINE-DEXTROAMPHETAMINE Inactive LEVAQUIN 500 MG ORAL TABLET 1 tablet by mouth daily 21/06/28 LEVAQUIN 500 MG ORAL TABLET 941918 LEVOFLOXACIN Inactive AMOXICILLIN 500 MG ORAL CAPSULE 2 po BID x 10 days 201 07/15/00 AMOXICILLIN 500 MG ORAL CAPSULE 282242 AMOXICILLIN Inactive AZITHROMYCIN 250 MG ORAL TABLET take 2 po today then take 1 po days 2-5 AZITHROMYCIN 250 MG ORAL TABLET 036083 AZITHROMY BERNARDO Inactive LEVAQUIN 500 MG ORAL TABLET 1 pill by mouth daily 2013 LEVAQUIN 500 MG ORAL TABLET 256331 LEVOFLOXACIN Inactive AUGMENTIN 875-125 MG ORAL TABLET [...] days 08/02 PREDNISONE 20 MG ORAL TABLET 131307 PREDNISONE Inactive CIPRO 500 MG ORAL TABLET 1 tablet by mouth twice daily CIPRO 500 MG ORAL TABLET 982486 CIPROFLOXACIN HCL Inactive DOXYCYCLINE HYCLATE 100 MG ORAL CAPSULE 1 cap by mouth twice jong ly DOXYCYCLINE HYCLATE 100 MG ORAL CAPSULE 8746005 DOXYCYCL INE HYCLATE Inactive PREDNISONE 20 MG ORAL TABLET Take 3 tabs for 3 days, t hen 2 tabs for 3 days, then 1 tab for 3 days PREDNISONE 20 MG ORAL TABLET 312 615 PREDNISONE Inactive CHERATUSSIN AC 100-10 MG/5ML ORAL SYRUP 5ml po q6hr PRN Cough 20 21/03/15 CHERATUSSIN AC 100-10 MG/5ML ORAL SYRUP 340600 GUAIFENE SIN-CODEINE Inactive Vital Signs Date Name [...] 11 .6-14.8 platelet count 288 10^3/MM^3 10*3/mm3 778-857 0770/03/25 erythrocyte (RBC) count 4.37 10^6/MM^3 10*6/mm3 3.80-5.8 0 lymphocytes as percent of blood leukocytes 23.4 % 20.5-51.1 monocytes as percent of blood leukocytes 9.5 % 1.7-9.3 neutrophils as percent of blood leukocytes 61.2 % 42.2-75.2 leukocyte count, blood 8.8 10^3/MM^3 10*3/mm3 4.6-10.2 Lab Report: Comp. Metabolic Panel, [facility] - Chemistry sodium, serum 140 mmol/L 441-969 6868/03/25 carbon dioxide, venous blood 33.2 mmol/L 21.0-32 [...] mg/dL 0.00-1.00 Lab Report: Comp. Metabolic Panel, [facility] - Lab Alkaline phosphatase 91 50-136 Lab Report: UADIP W/MICRO, AUTO - Chemis try RBC, urine, dipstick Negative Negative protein, total urine random Negative mg/dL Negative Lab Report: UADIP W/MICRO, AUTO - Urinal ysis glucose, urine, semiquantitative Negative Neg ative urobilinogen, urine, semiquantitative (dipstick) 0.2 E .U./dL Normal leukocyte esterase, urine, by dipstick Negative Negative nitrite, urine, semiquantitative Negative Neg ative appearance, urine Clear Clear specific gravity, urine 1.025 1.000-1.030 pH, urine, semiquantitative 7.0 5.0-8.5 urine color Yellow Colorless;Lightyellow;St raw;Yellow ketones, urine, by test strip Negative Negati ve bilirubin, urine Negative Negative Office Visit: S/T, Fever, Cough - Microb iology Strep Screen QC Result (CLIA Waived) negative Strep Screen Lot Number (CLIA Waived) [id number] Strep Screen Exp Date (CLIA Waived) 05/02/2020 Encounters Code Encounter Date Provider Facility CPT-96430 [id number] Vst-Est Level III 16:58:04 CDT Me nae Vazquez [facility]-29282 [id number] Vst-Est Level IV 14:46:36 LUMBER STRAIGHTENED Foster Patel [facility] CPT-45817 Level 3 Est. Patient 12:37:30 LUMBER STRAIGHTENED Galilea Se [facility] CPT-56797 Level 3 Est. Patient 11:40:23 CDT Bertrand marquez [facility] CPT-11588 Level 4 Est. Patient 15:33:35 LUMBER STRAIGHTENED Bertrand marquez [facility] CPT-73269 Level 4 Est. Patient 12:31:54 CDT Bertrand marquez [facility]-72207 Level 3 Est. Patient 11:27:00 LUMBER STRAIGHTENED Ike Deluna MD [facility]-65408 Level 3 Est. Patient 08:50:57 LUMBER STRAIGHTENED Silvia Are [facility] CPT-69870 Level 3 Est. Patient 10:04:13 CDT Bertrand marquez [facility] CPT-45223 Level 4 Est. Patient 16:02:10 LUMBER STRAIGHTENED Silvia Are [facility] CPT-33668 Level 3 Est. Patient 13:04:54 LUMBER STRAIGHTENED Silvia Are [facility]-27941 Level 3 Est. Patient 12:56:37 CDT Bertrand marquez [facility] CPT-59396 Level 3 Est. Patient 19:12:03 CDT Yoli tolbert MD [facility] CPT-25414 Level 3 Est. Patient 14:36:01 CDT Yoli tolbert MD PhD [facility] CPT-55190 Level 2 Est. Patient 08:00:22 CDT Jcarlos dc MD [facility]-39673 Level 3 Est. Patient 19:06:55 CDT Bertrand marquez [facility] CPT-04588 Level 3 Est. Patient 10:08:23 LUMBER STRAIGHTENED Bertrand Jacklyn marquez [facility] CPT-55214 Level 3 Est. Patient 16:37:54 LUMBER STRAIGHTENED Bertrand Jacklyn [place] marquez [facility] CPT-32584 Level 3 Est. Patient 11:31:59 LUMBER STRAIGHTENED Bertrand Jacklyn marquez [facility] CPT-73103 Level 3 Est. Patient 10:20:08 CDT [facility] CPT-84558 Level 3 Est. Patient 13:45:20 CDT Sanket [facility] CPT-38168 Level 3 Est. Patient 12:51:06 CDT [facility] CPT-41221 Level 3 Est. Patient 11:22:51 LUMBER STRAIGHTENED Yoli tolbret MD PhD [facility] CPT-53705 Level 3 Est. Patient 13:33:19 CDT Bertrand [facility] [place] [facility] Procedures Code Procedure Name Date Entry Date Standard Desc ription CPT-46244 Sono abd valle iinc RUQ LUQ ascites search or pylorus - XRAY USE ONLY 09:11:06 CDT CPT-73416 Venipuncture Draw Fee 16:30:28 CDT CPT-[id number] ([id number]) Influenza immunization administe red or previously received 15:55:57 CDT CPT-28400 Wound Culture - LAB USE ONLY 15:45:25 CDT 2 CPT-31830 Venipuncture Draw Fee 10:23:01 CDT CPT-J0696 Rocephin 1000 mg (Ceftriaxone) 16:20:30 LUMBER STRAIGHTENED CPT-77024 Abx/Therapy Injection 16:20:29 LUMBER STRAIGHTENED CPT-J0696 Rocephin 1gm Inj Solr 15:51:59 LUMBER STRAIGHTENED CPT-59503 Chest 2V Frontal and Lat 15:20:28 LUMBER STRAIGHTENED 07/22 CPT-83802 Breathing Tx 14:51:55 LUMBER STRAIGHTENED CPT-29919 Breathing Tx 09:57:16 LUMBER STRAIGHTENED CPT-27317 Knee comp 4/> V 11:58:06 LUMBER STRAIGHTENED
--- OUTSIDE RECORDS SUMMARY | 2019-11-13 09:44 | XMS REPORT | Clinical Summary ---
Author Author Admin, Enrique Adamson Organization [facility] Address Unknown Phone Unavailable Allergies, Adverse Reactions, [...] URI - viral 465.9 Resolved Lina Maher [facility] Acute upper respiratory infections of unspecified site Pharyngitis acute 462 Resolved Lina Ma[facility] Acute pharyngitis Abdominal pain, upper 789.09 Active Lina Maher A PRN-C Abdominal pain, other specified site; multiple sites Flank pain, left 789.09 Active Lina Maher [facility] Abdominal pain, other specified site; multiple sites Morbid obesity due to excess calories 278.00 Resolved Lina Maher [facility] Obesity, unspecified Other abnormal findings in urine Active 202 Lina Maher [facility] Generalized colicky abdominal pain 789.07 Active 2 Lina Maher [facility] Abdominal pain, generalized Nausea 787.02 Active Lina Maher [facility] Nausea alone Abnormal abdominal imaging 793.6 Active [...] 09/09/28 EDEMA LEG ICD-782.3 Inactive Adele Feldman BORING 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 PRODUCTION 201 01/01/02 SHORTNESS OF BREATH ICD-786.05 Inactive Yoli Mercado MD PhD RIB PAIN, RIGHT SIDED ICD-786.50 Inactive Yoli Mercado MD PhD KNEE PAIN, RIGHT ICD-719.46 Inactive Adele Esqueda n BORING 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 PRODUCTION Knee pain, left ICD-719.46 Inactive Adele Holden hn BORING 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 PRODUCTION Pharyngitis-Acute ICD-462 Inactive Bertrand Redmond DO Polyuria ICD-788.42 Inactive Yoli Mercado MD P hD Cellulitis, leg, right ICD-682.6 Inactive Yuki Deluna MD Foreign body, ear ICD-931 Inactive Yoli salazar MD PhD Fatigue ICD-780.79 Inactive Ike Deluna MD 201 12/01/06 Headache ICD-784.0 Inactive Adele Feldman BORING 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 PRODUCTION 2017 Cough ICD-786.2 Inactive Adele Feldman BORING 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 PRODUCTION 06/04 SINUSITIS, ACUTE ICD-461.9 Inactive Ike lange MD Fatigue ICD-780.79 Inactive Adele Feldman BORING 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 PRODUCTION 2017 Bronchitis acute with bronchospasm ICD-466.0 I nactive Bertrand Patel DO Animal bite ICD-919.8 Inactive Adele Feldman LP N Mycoplasma infection ICD-041.81 Inactive Anit a Feldman BORING 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 PRODUCTION Amenorrhea, secondary ICD-626.0 Inactive Ani ta Feldman BORING 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 PRODUCTION Left maxillary sinusitis ICD-473.0 Inactive Bertrand Patel [...] 6 hour PRN nausea 2 ONDANSETRON HCL 52373387860 Active Adriana Davalos RN Active CYCLOBENZAPRINE HCL 10 MG ORAL TABLET 1 tablet by mout h three times a day as needed for muscle spasm CYCLOBENZAPRINE HCL 95797986446 Ac tive Lina Gunnar [facility] Active HYDROCODONE-ACETAMINOPHEN 7.5-325 MG TABS 1 TAB EVERY 6 HOUR S PRN FOR PAIN HYDROCODONE-ACETAMINOPHEN 39569827742 Active Bertrand Patel DO Active TELMISARTAN 80 MG TABS 1 TABLET PO DAILY FOR BLOOD PRESSURE TELMISARTAN 55755935368 Active Adriana Davalos RN Active MODAFINIL 200 MG TABS 1/2 TABLET PO IN THE AM AND 1/2 TABLET AT NOON MODAFINIL 56537688010 Active Adriana Davalos RN Activ e DULOXETINE HCL 60 MG CPEP 1 CAPSULE PO DAILY DU LOXETINE HCL 34405890776 Active Adriana Davalos RN Active AMLODIPINE 5MG 1 TABLET PO DAILY FOR BLOOD PRESSURE AMLODIPINE BESYLATE 04633069172 Active Adriana Davalos RN Active ALPRAZOLAM 0.5 MG TABS TAKE 1 TABLET BY MOUTH THREE TIMES DAILY 201 02/10/05 ALPRAZOLAM 66119122766 Active Adriana Davalos RN Active SUDAFED 12 HOUR 120 MG ORAL TABLET EXTENDED RELEASE 12 HOUR 1 pill twice daily if for congestion PSEUDOEPHEDRINE HCL 77548026727 Active Silvia Vazquez APRN Active CHERATUSSIN AC 100-10 MG/5ML ORAL SYRUP 5ml po q6hr PRN Cough 20 21/03/15 GUAIFENESIN-CODEINE 53274744705 No Longer Active Silvia Vazquez APRN Active FLUTICASONE PROPIONATE 50 MCG/ACT NASAL SUSPENSION 2 s prays per nostril daily for 2 weeks, then 1 spray each nostril PRN FLUTI CASONE PROPIONATE 90159337098 Active Silvia Vazquez APRN Active EVENING PRIMROSE OIL 1000 MG ORAL CAPSULE 1 capsule once daily EVENING PRIMROSE OIL 49576342176 Active Bertrand Patel DO Active LEVAQUIN 500 MG ORAL TABLET 1 tablet by mouth daily 20 21/06/28 LEVOFLOXACIN 89347758017 No Longer Active Bertrand Patel DO Active PREDNISONE 20 MG ORAL TABLET Take 3 tabs for 3 days, t hen 2 tabs for 3 days, then 1 tab for 3 days PREDNISONE 81263235154 No Rainer fatou Active Galilea Sell [facility] Active DOXYCYCLINE HYCLATE 100 MG ORAL CAPSULE 1 cap by mouth twice jong ly DOXYCYCLINE HYCLATE 49661206790 No Longer Active Galilea Sell [facility] Active ADDERALL 10 MG ORAL TABLET 1 tab twice daily 2 AMPHETAMINE-DEXTROAMPHETAMINE 62454358668 No Longer Active Nitza Phi llips Scribe Active ZITHROMAX Z-MARTIN 250 MG ORAL TABLET 2 today and then 1 daily for 4 days AZITHROMYCIN 65674393484 No Longer Active Nitza Osman lips Scribe Active BENZONATATE 200 MG ORAL CAPSULE 1 three times a day as neede d for cough BENZONATATE 36570970337 No Longer Active Nitza Osman lips Scribe Active VITAMIN D3 95049 UNIT ORAL CAPSULE 1 pill Week x 4 mo nths for vitamin D deficiency/osteoporosis CHOLECALCIFEROL 99226926795 N o Longer Active Layla Garcia Active BACTROBAN 2 % EXTERNAL CREAM Apply to affected area BID for up to 10 days MUPIROCIN CALCIUM 93384000363 No Longer Active Ike Deluna MD Active CIPRO 500 MG ORAL TABLET 1 tablet by mouth twice daily CIPROFLOXACIN HCL 18595885200 No Longer Active Adriana Bender LPN Active AUGMENTIN 875-125 MG ORAL TABLET 1 po BID x 10 days 20 18/04/06 AMOXICILLIN-POT CLAVULANATE 99529208645 No Longer Active Adriana Bender LPN Active CYCLOBENZAPRINE HCL 10 MG ORAL TABLET Take 1 tab TID PRN for mus triston pain CYCLOBENZAPRINE HCL 18651130805 No Longer Active Bertrand Patel DO Active TESSALON PERLES 100 MG ORAL CAPSULE 1 tablet by mouth 3 times da juan pablo BENZONATATE 98144676200 No Longer Active Bertrand Patel DO Ac tive NEBULIZER use as directed NEBULIZERS 52512898830 No Longer Active Bertrand Patel DO Active ALBUTEROL SULFATE (2.5 MG/3ML) 0.083% INHALATION NEBUL IZATION SOLUTION one vial per nebulizer every 4-6 hours as needed ALBUTERO L SULFATE 26242291939 No Longer Active Bertrand Patel DO Active SYMBICORT 160-4.5 MCG/ACT INHALATION AEROSOL 2 puffs BID 9 BUDESONIDE-FORMOTEROL FUMARATE 71917358668 No Longer Active Bertrand Patel DO Active PREDNISONE 20 MG ORAL TABLET take 3 tabs daily for 3 d ays, 2 tabs daily for 3 days, 1 tab daily for 3 days, 1/2 tab daily for 3 days 08/02 PREDNISONE 01761910385 No Longer Active Silvia Arekalin [facility] Active AZITHROMYCIN 250 MG ORAL TABLET Take 2 tabs po today then 1 tab po daily AZITHROMYCIN 43165324869 No Longer Active Silvia Arell [facility] Active AUGMENTIN 875-125 MG ORAL TABLET 1 po BID x 10 days 20 19/07/13 AMOXICILLIN-POT CLAVULANATE 11542320729 No Longer Active Adriana Bender LPN Active CHEWABLE CALCIUM 500-200-40 MG-UNT-MCG ORAL TABLET CHEWABLE 1 chew tab bid CALCIUM-VITAMIN D-VITAMIN K 59857418240 Active Silvia Are ll [facility] CNA Active EQ COMPLETE MULTIVIT ADULT 50+ ORAL TABLET 1 tab po bid MULTIPLE VITAMINS-MINERALS 25739228313 Active Silvia Arell [facility] Active LORTAB 7.5-500 MG ORAL TABLET take one po Q6 hours 201 09/12/01 HYDROCODONE-ACETAMINOPHEN 49074190745 No Longer Active Nirmal Robbins RN Active [facility] MELATONIN 5-10 MG ORAL TABLET EXTENDED RELEASE Jair e one by mouth daily at bedtime MELATONIN-PYRIDOXINE 77632211656 No Longer Acti ve Bertrand Patel DO Active VITAMIN E 200 UNIT ORAL CAPSULE 1 cap po qd VITAM IN E 10750840426 No Longer Active Bertrand Patel DO Active B-12 1000 MCG ORAL CAPSULE 1 tab daily CYANOCOB ALAMIN 89871286682 No Longer Active Bertrand Patel DO Active METFORMIN HCL 500 MG ORAL TABLET 1 bid METFOR MIN HCL 95613627494 No Longer Active Bertrand Patel DO Active FUROSEMIDE 20 MG ORAL TABLET 1 pill by mouth daily if needed for edema FUROSEMIDE 79376651724 No Longer Active Bertrand Patel DO Active PRAVASTATIN SODIUM 20 MG ORAL TABLET 1 tablet by mouth daily at bedtime PRAVASTATIN SODIUM 30695128557 No Longer Active Bertrand Patel DO Active AUGMENTIN 875-125 MG ORAL TABLET 1 pill by mouth twice daily 201 09/10/00 AMOXICILLIN-POT CLAVULANATE 91539670772 No Longer Active Yoli Mercado MD PhD Active LEVAQUIN 500 MG ORAL TABLET 1 pill by mouth daily 2013 LEVOFLOXACIN 24245061713 No Longer Active Yoli Mercado MD PhD Acti ve MICARDIS 80 MG ORAL TABLET 1 tablet daily for blood pressure 07/30 TELMISARTAN 26708090765 Active Adriana Davalos RN Active MICARDIS HCT 80-12.5 MG ORAL TABLET 1 qd TELMISARTAN-HCTZ 93599389188 No Longer Active Bertrand Patel DO Active CINNAMON ALPHA LIPOIC AC CMPLX CAPSULE by mouth twice a day in AM by mouth twice a day in PM ALPHA LIPOIC [id number] CA PS 47901536222 No Longer Active Bertrand Patel DO Active AZITHROMYCIN 500 MG INTRAVENOUS SOLUTION RECONSTITUTED 1 po q da y AZITHROMYCIN 50989355416 No Longer Active Bertrand Patel DO A ctive CYMBALTA 30 MG ORAL CAPSULE DELAYED RELEASE PARTICLES 1 cap by mouth daily DULOXETINE HCL 44299520434 No Longer Active Bertrand marquez DO Active CYMBALTA 60 MG ORAL CAPSULE DELAYED RELEASE PARTICLES 1 cap by mouth daily DULOXETINE HCL 30053288493 Active Adriana Davalos RN Active WELLBUTRIN 75 MG ORAL TABLET 2 times daily BUPR OPION HCL 14276263558 No Longer Active Bertrand Patel DO Active PROAIR HFA 108 (90 Base) MCG/ACT INHALATION AEROSOL SO LUTION take one to two puffs po Q4-6 hour prn cough and shortness of breath ALBUTEROL SULFATE 45586820125 Active Bertrand Patel DO Active AZITHROMYCIN 250 MG ORAL TABLET take 2 po today then take 1 po days 2-5 AZITHROMYCIN 28571813867 No Longer Active Adolfo OSORIO Active PERMETHRIN 5 % EXTERNAL CREAM apply neck to toes tonig ht and then rinse off in morning. repeat at 7 days PERMETHRIN 10419223833 No Longer Active Adolfo OSORIO Active AMOXICILLIN 500 MG ORAL CAPSULE 2 po BID x 10 days 201 07/15/00 AMOXICILLIN 20995868872 No Longer Active Yoli Mercado MD PhD Acti ve INSUPEN ULTRAFIN 31G X 6 MM USE DIRECTED INSULIN PEN NEEDLE 78434225209 No Longer Active Bertrand Patel DO Active TRANSDERM-SCOP (1.5 MG) 1 MG/3DAYS TRANSDERMAL PATCH 7 2 HOUR 1 patch applied behind ear q 3 day SCOPOLAMINE BASE 73094983864 No Lo nger Active Bertrand Patel DO Active MACRODANTIN 100 MG ORAL CAPSULE one p.o. b.i.d. x2 weeks NITROFURANTOIN MACROCRYSTAL 09870375768 No Longer Active Bertrand Patel DO Active MACRODANTIN 100 MG ORAL CAPSULE one p.o. b.i.d. x2 weeks MACRODANTIN 100 MG ORAL CAPSULE 3257910 NITROFURANTOIN MACROCRYSTAL Inactive TRANSDERM-SCOP (1.5 MG) 1 [...] days PERMETHRIN 5 % EXTER NAL CREAM 893170 PERMETHRIN Inactive WELLBUTRIN 75 MG ORAL TABLET 2 times daily WELLBUTRIN 75 MG ORAL TABLET BUPROPION HCL Inactive CYMBALTA 30 MG ORAL CAPSULE DELAYED RELEASE PARTICLES 1 cap by mouth daily CYMBALTA 30 MG ORAL CAPSULE DELAYED RELE ASE PARTICLES 294044 DULOXETINE HCL Inactive AZITHROMYCIN 500 MG INTRAVENOUS SOLUTION RECONSTITUTED 1 po q da y AZITHROMYCIN 500 MG INTRAVENOUS SOLUTION RECONSTITUTED 29218 677519 AZITHROMYCIN Inactive CINNAMON ALPHA LIPOIC AC CMPLX CAPSULE by mouth twice a day in AM by mouth twice a day in PM CINNAMON ALPHA LIPOIC AC CMPLX CAPSULE ALPHA LIPOIC [id number] CAPS Inactive MICARDIS HCT 80-12.5 MG ORAL TABLET 1 qd 07/30 MICARDIS HCT 80-12.5 MG ORAL TABLET 520482 TELMISARTAN-HCTZ Inactive PRAVASTATIN SODIUM 20 MG ORAL TABLET 1 tablet by mouth daily at bedtime PRAVASTATIN SODIUM 20 MG ORAL TABLET 681819 PRAVASTATIN SODIUM Inactive FUROSEMIDE 20 MG ORAL TABLET 1 pill by mouth daily if needed for edema FUROSEMIDE 20 MG ORAL TABLET 112904 FUROSEMIDE Inactive METFORMIN HCL 500 MG ORAL TABLET 1 bid METFORMIN HCL 500 MG ORAL TABLET 502642 METFORMIN HCL Inactive B-12 1000 MCG ORAL CAPSULE 1 tab daily B -12 1000 MCG ORAL CAPSULE CYANOCOBALAMIN Inactive VITAMIN E 200 UNIT ORAL CAPSULE 1 cap po qd 1 VITAMIN E 200 UNIT ORAL CAPSULE 5526905 VITAMIN E Inactive [facility] MELATONIN 5-10 MG [...] po daily AZITHROMYCIN 250 MG ORAL TABLET 145701 AZITHROMY BERNARDO Inactive SYMBICORT 160-4.5 MCG/ACT INHALATION AEROSOL 2 puffs BID 9 SYMBICORT 160-4.5 MCG/ACT INHALATION AEROSOL 8306445 BUDESONID E-FORMOTEROL FUMARATE Inactive ALBUTEROL SULFATE (2.5 MG/3ML) 0.083% INHALATION NEBUL IZATION SOLUTION one vial per nebulizer every 4-6 hours as needed ALBUTEROL SULFATE (2.5 MG/3ML) 0.083% INHALATION NEBULIZATION SOLUTION 016248 ALBUTER OL SULFATE Inactive NEBULIZER use as directed NEBULIZER NEBULI ZERS Inactive TESSALON PERLES 100 MG ORAL CAPSULE 1 tablet by mouth 3 times da juan pablo TESSALON PERLES 100 MG ORAL CAPSULE 813007 BENZONATATE Inactive CYCLOBENZAPRINE HCL 10 MG ORAL TABLET Take 1 tab TID PRN for mus triston pain CYCLOBENZAPRINE HCL 10 MG ORAL TABLET 317830 CYCLOBENZA ANUJA HCL Inactive AUGMENTIN 875-125 MG ORAL TABLET 1 po BID x 10 days 18/04/06 AUGMENTIN 875-125 MG ORAL TABLET AMOXICILLIN-POT CLAVULANATE Inactive BACTROBAN 2 % EXTERNAL CREAM Apply to affected area BID for up to 10 days BACTROBAN 2 % EXTERNAL CREAM MUPIROCIN CA LCIUM Inactive VITAMIN D3 16027 UNIT ORAL CAPSULE 1 pill Week x 4 mo nths for vitamin D deficiency/osteoporosis VITAMIN D3 53142 UNIT ORAL CAPSULE CHOLECALCIFEROL Inactive BENZONATATE 200 MG ORAL CAPSULE 1 three times a day as neede d for cough BENZONATATE 200 MG ORAL CAPSULE 115411 BENZONATA TE Inactive ZITHROMAX Z-MARTIN 250 MG ORAL TABLET 2 today and then 1 daily for 4 days ZITHROMAX Z-MARTIN 250 MG ORAL TABLET 695479 AZITHR OMYCIN Inactive ADDERALL 10 MG ORAL TABLET 1 tab twice daily 2 ADDERALL 10 MG ORAL TABLET 716715 AMPHETAMINE-DEXTROAMPHETAMINE Inactive LEVAQUIN 500 MG ORAL TABLET 1 tablet by mouth daily 20 21/06/28 LEVAQUIN 500 MG ORAL TABLET 102205 LEVOFLOXACIN Inactive AMOXICILLIN 500 MG ORAL CAPSULE 2 po BID x 10 days 201 07/15/00 AMOXICILLIN 500 MG ORAL CAPSULE 661946 AMOXICILLIN Inactive AZITHROMYCIN 250 MG ORAL TABLET take 2 po today then take 1 po days 2-5 AZITHROMYCIN 250 MG ORAL TABLET 799154 AZITHROMY BERNARDO Inactive LEVAQUIN 500 MG ORAL TABLET 1 pill by mouth daily 2013 LEVAQUIN 500 MG ORAL TABLET 840259 LEVOFLOXACIN Inactive AUGMENTIN 875-125 MG ORAL TABLET [...] days 08/02 PREDNISONE 20 MG ORAL TABLET 440875 PREDNISONE Inactive CIPRO 500 MG ORAL TABLET 1 tablet by mouth twice daily CIPRO 500 MG ORAL TABLET 377413 CIPROFLOXACIN HCL Inactive DOXYCYCLINE HYCLATE 100 MG ORAL CAPSULE 1 cap by mouth twice jong ly DOXYCYCLINE HYCLATE 100 MG ORAL CAPSULE 0165714 DOXYCYCL INE HYCLATE Inactive PREDNISONE 20 MG ORAL TABLET Take 3 tabs for 3 days, t hen 2 tabs for 3 days, then 1 tab for 3 days PREDNISONE 20 MG ORAL TABLET 312 615 PREDNISONE Inactive CHERATUSSIN AC 100-10 MG/5ML ORAL SYRUP 5ml po q6hr PRN Cough 20 21/03/15 CHERATUSSIN AC 100-10 MG/5ML ORAL SYRUP 526886 GUAIFENE SIN-CODEINE Inactive Vital Signs Date Name [...] Lab Report: Comp. Metabolic Panel, [facility] - Chemistry sodium, serum 140 mmol/L 778-648 7071/03/25 carbon dioxide, venous blood 33.2 mmol/L 21.0-32 [...] mg/dL 0.00-1.00 Lab Report: Comp. Metabolic Panel, [facility] - Lab Alkaline phosphatase 91 50-136 Lab [...] negative Strep Screen Lot Number (CLIA Waived) [id number] Strep Screen Exp Date (CLIA Waived) 05/02/2020 Encounters Code Encounter Date Provider Facility CPT-[id number] Vst-Est Level III 16:58:04 CDT Me nae Vazquez [facility]-60527 [id number] Vst-Est Level IV 14:46:36 KENNEL HELPER Foster Patel [facility] CPT-33774 Level 3 Est. Patient 12:37:30 KENNEL HELPER Galilea Se [facility] CPT-83980 Level 3 Est. Patient 11:40:23 CDT Bertrand marquez [facility] CPT-19924 Level 4 Est. Patient 15:33:35 KENNEL HELPER Bertrand marquez [facility] CPT-29206 Level 4 Est. Patient 12:31:54 CDT Bertrand marquez [facility] CPT-21374 Level 3 Est. Patient 11:27:00 KENNEL HELPER Ike Deluna MD [facility] CPT-13694 Level 3 Est. Patient 08:50:57 KENNEL HELPER Silvia Are [facility] CPT-67542 Level 3 Est. Patient 10:04:13 CDT Bertrand marquez [facility] CPT-66682 Level 4 Est. Patient 16:02:10 KENNEL HELPER Silvia Are kalin [facility] CPT-18281 Level 3 Est. Patient 13:04:54 KENNEL HELPER Silvia Are [facility] CPT-24251 Level 3 Est. Patient 12:56:37 CDT Bertrand marquez [facility] CPT-37151 Level 3 Est. Patient 19:12:03 CDT Yoli tolbert MD [facility] CPT-09021 Level 3 Est. Patient 14:36:01 CDT Yoli tolbert MD PhD [facility] CPT-89363 Level 2 Est. Patient 08:00:22 CDT Jcarlos dc MD [facility]-15457 Level 3 Est. Patient 19:06:55 CDT Bertrand marquez [facility] CPT-16268 Level 3 Est. Patient 10:08:23 KENNEL HELPER Bertrand marquez [facility] CPT-32145 Level 3 Est. Patient 16:37:54 KENNEL HELPER Bertrand marquez [facility] CPT-41148 Level 3 Est. Patient 11:31:59 KENNEL HELPER Bertrand marquez [facility] CPT-94301 Level 3 Est. Patient 10:20:08 CDT Adolfo villasenor [facility] CPT-60280 Level 3 Est. Patient 13:45:20 CDT Sanket buckley [facility] CPT-88378 Level 3 Est. Patient 12:51:06 CDT Adolfo villasenor [facility] CPT-42865 Level 3 Est. Patient 11:22:51 KENNEL HELPER Yoli tolbert MD [facility]-45836 Level 3 Est. Patient 13:33:19 CDT Bertrand marquez [facility] Procedures Code Procedure Name Date Entry Date Standard Desc ription CPT-24322 Sono abd valle iinc RUQ LUQ ascites search or pylorus - XRAY USE ONLY 09:11:06 CDT CPT-51552 Venipuncture Draw Fee 16:30:28 CDT [id number]-[id number] ([id number]) Influenza immunization administe red or previously received 15:55:57 CDT CPT-65418 Wound Culture - LAB USE ONLY 15:45:25 CDT 2 CPT-31536 Venipuncture Draw Fee 10:23:01 CDT CPT-J0696 Rocephin 1000 mg (Ceftriaxone) 16:20:30 KENNEL HELPER CPT-69703 Abx/Therapy Injection 16:20:29 KENNEL HELPER CPT-J0696 Rocephin 1gm Inj Solr 15:51:59 KENNEL HELPER CPT-79736 Chest 2V Frontal and Lat 15:20:28 KENNEL HELPER 07/22 CPT-95695 Breathing Tx 14:51:55 KENNEL HELPER CPT-87205 Breathing Tx 09:57:16 KENNEL HELPER CPT-72981 Knee comp 4/> V 11:58:06 KENNEL HELPER
--- OUTSIDE RECORDS SUMMARY | 2019-11-13 09:45 | XMS REPORT | Clinical Summary ---
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 OPERATIONS SUPERINTENDENT-C Acute upper respiratory infections of unspecified site Pharyngitis acute 462 Resolved Lina Maher GAS OPERATIONS SUPERINTENDENT -C Acute pharyngitis Abdominal pain, upper 789.09 Active Lina Maher A PRN-C Abdominal pain, other specified site; multiple sites Flank pain, left 789.09 Active Lina Maher GAS OPERATIONS SUPERINTENDENT-C Abdominal pain, other specified site; multiple sites Morbid obesity due to excess calories 278.00 Resolved Lina Maher GAS OPERATIONS SUPERINTENDENT-C Obesity, unspecified Other abnormal findings in urine Active 202 Lina Maher GAS OPERATIONS SUPERINTENDENT-C Generalized colicky abdominal pain 789.07 Active 2 [...] 09/09/28 EDEMA LEG ICD-782.3 Inactive Adele Feldman [facility] 201 01/01/02 SHORTNESS OF BREATH ICD-786.05 Inactive Yoli Mercado MD PhD RIB PAIN, RIGHT SIDED ICD-786.50 Inactive Yoli Mercado MD PhD KNEE PAIN, RIGHT ICD-719.46 Inactive Adele chiu [facility] Knee pain, left ICD-719.46 Inactive Adele damico [facility] Pharyngitis-Acute ICD-462 Inactive Bertrand Redmond DO Polyuria ICD-788.42 Inactive Yoli Mercado MD P hD Cellulitis, leg, right ICD-682.6 Inactive Yuki Deluna MD Foreign body, ear ICD-931 Inactive Yoli salazar MD PhD Fatigue ICD-780.79 Inactive Ike Deluna MD 201 12/01/06 Headache ICD-784.0 Inactive Adele Feldman LPN 2017 Cough ICD-786.2 Inactive Adele Feldman [employer] M[employer]INE [employer]EDER 06/04 SINUSITIS, ACUTE ICD-461.9 Inactive Ike lange MD Fatigue ICD-780.79 Inactive Adele Feldman [employer] 2017 Bronchitis acute with bronchospasm ICD-466.0 I nactive Bertrand Patel DO Animal bite ICD-919.8 Inactive Adele Feldman LP N Mycoplasma infection ICD-041.81 Inactive Anit a Feldmna [employer]INE [employer]EDER Amenorrhea, secondary ICD-626.0 Inactive 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 Left maxillary sinusitis ICD-473.0 Inactive Bertrand Patel DO URI - viral ICD-465.9 Inactive Lina Maher APRN -C Pharyngitis acute ICD-462 Inactive Lina elliott G[employer] OPERATIONS SUPERINTENDENT-C Morbid obesity due to excess calories ICD-278.00 Inactive Carla ALBERTO Medication List Medication Instructions Start Date Stop Date Generic Name NDC Status Provider Patient Instruction ZOFRAN 4 MG ORAL TABLET 1 tablet by mouth every 6 hour PRN nausea 2 ONDANSETRON HCL 24650998087 Active Adriana Davalos RN Active CYCLOBENZAPRINE HCL 10 MG ORAL TABLET 1 tablet by mout h three times a day as needed for muscle spasm CYCLOBENZAPRINE HCL 15349245712 Ac tive Lina Maher APRN-C Active HYDROCODONE-ACETAMINOPHEN 7.5-325 MG TABS 1 TAB EVERY 6 HOUR S PRN FOR PAIN HYDROCODONE-ACETAMINOPHEN 63679537960 Active Bertrand Patel DO Active TELMISARTAN 80 MG TABS 1 TABLET PO DAILY FOR BLOOD PRESSURE TELMISARTAN 55650202504 Active Adriana Davalos RN Active MODAFINIL 200 MG TABS 1/2 TABLET PO IN THE AM AND 1/2 TABLET AT NOON MODAFINIL 92982928161 Active Adriana Davalos RN Activ e DULOXETINE HCL 60 MG CPEP 1 CAPSULE PO DAILY DU LOXETINE HCL 01342966731 Active Adriana Davalos RN Active AMLODIPINE 5MG 1 TABLET PO DAILY FOR BLOOD PRESSURE AMLODIPINE BESYLATE 48127100703 Active Adriana Davalos RN Active ALPRAZOLAM 0.5 MG TABS TAKE 1 TABLET BY MOUTH THREE TIMES DAILY 201 02/10/05 ALPRAZOLAM 98405159539 Active Adriana Davalos RN Active SUDAFED 12 HOUR 120 MG ORAL TABLET EXTENDED RELEASE 12 HOUR 1 pill twice daily if for congestion PSEUDOEPHEDRINE HCL 83071123069 Active Silvia Vazquez APRN Active CHERATUSSIN AC 100-10 MG/5ML ORAL SYRUP 5ml po q6hr PRN Cough 20 21/03/15 GUAIFENESIN-CODEINE 09160968124 No Longer Active Silvia Vazquez APRN Active FLUTICASONE PROPIONATE 50 MCG/ACT NASAL SUSPENSION 2 s prays per nostril daily for 2 weeks, then 1 spray each nostril PRN FLUTI CASONE PROPIONATE 82274139640 Active Silvia Vazquez APRN Active EVENING PRIMROSE OIL 1000 MG ORAL CAPSULE 1 capsule once daily EVENING PRIMROSE OIL 67394008926 Active Bertrand Patel DO Active LEVAQUIN 500 MG ORAL TABLET 1 tablet by mouth daily 20 21/06/28 LEVOFLOXACIN 13967978287 No Longer Active Bertrand Patel DO Active PREDNISONE 20 MG ORAL TABLET Take 3 tabs for 3 days, t hen 2 tabs for 3 days, then 1 tab for 3 days PREDNISONE 57549277944 No Rainer fatou Active Galilea Sell GAS OPERATIONS SUPERINTENDENT Active DOXYCYCLINE HYCLATE 100 MG ORAL CAPSULE 1 cap by mouth twice jong ly DOXYCYCLINE HYCLATE 79709448872 No Longer Active Galilea Sell GAS OPERATIONS SUPERINTENDENT Active ADDERALL 10 MG ORAL TABLET 1 tab twice daily 2 AMPHETAMINE-DEXTROAMPHETAMINE 15871627235 No Longer Active Nitza Phi llips Scribe Active ZITHROMAX Z-MARTIN 250 MG ORAL TABLET 2 today and then 1 daily for 4 days AZITHROMYCIN 38487993195 No Longer Active Nitza Osman lips Scribe Active BENZONATATE 200 MG ORAL CAPSULE 1 three times a day as neede d for cough BENZONATATE 79126607839 No Longer Active Nitza Osman lips Scribe Active VITAMIN D3 16638 UNIT ORAL CAPSULE 1 pill Week x 4 mo nths for vitamin D deficiency/osteoporosis CHOLECALCIFEROL 35400493666 N o Longer Active Layla Garcia Active BACTROBAN 2 % EXTERNAL CREAM Apply to affected area BID for up to 10 days MUPIROCIN CALCIUM 08200651983 No Longer Active Ike Deluna MD Active CIPRO 500 MG ORAL TABLET 1 tablet by mouth twice daily CIPROFLOXACIN HCL 94430803195 No Longer Active Adriana Bender LPN Active AUGMENTIN 875-125 MG ORAL TABLET 1 po BID x 10 days 18/04/06 AMOXICILLIN-POT CLAVULANATE 24412322590 No Longer Active Adriana Bender LPN Active CYCLOBENZAPRINE HCL 10 MG ORAL TABLET Take 1 tab TID PRN for mus triston pain CYCLOBENZAPRINE HCL 86078671900 No Longer Active Bertrand Patel DO Active PERFECTOSALTIAGO PERLES 100 MG ORAL CAPSULE 1 tablet by mouth 3 times da juan pablo BENZONATATE 65516098348 No Longer Active Bertrand Patel DO Ac tive NEBULIZER use as directed NEBULIZERS 90081411038 No Longer Active Bertrand Patel DO Active ALBUTEROL SULFATE (2.5 MG/3ML) 0.083% INHALATION NEBUL IZATION SOLUTION one vial per nebulizer every 4-6 hours as needed ALBUTERO L SULFATE 56728378343 No Longer Active Bertrand Patel DO Active SYMBICORT 160-4.5 MCG/ACT INHALATION AEROSOL 2 puffs BID 9 BUDESONIDE-FORMOTEROL FUMARATE 05097462995 No Longer Active Bertrand Patel DO Active PREDNISONE 20 MG ORAL TABLET take 3 tabs daily for 3 d ays, 2 tabs daily for 3 days, 1 tab daily for 3 days, 1/2 tab daily for 3 days 08/02 PREDNISONE 38735309005 No Longer Active Silvia Arell GAS OPERATIONS SUPERINTENDENT Active AZITHROMYCIN 250 MG ORAL TABLET Take 2 tabs po today then 1 tab po daily AZITHROMYCIN 75880099054 No Longer Active Silvia Arell GAS OPERATIONS SUPERINTENDENT Active AUGMENTIN 875-125 MG ORAL TABLET 1 po BID x 10 days 20 19/07/13 AMOXICILLIN-POT CLAVULANATE 81953565715 No Longer Active Adriana Bender LPN Active CHEWABLE CALCIUM 500-200-40 MG-UNT-MCG ORAL TABLET CHEWABLE 1 chew tab bid CALCIUM-VITAMIN D-VITAMIN K 22963318300 Active Silvia Are ll GAS OPERATIONS SUPERINTENDENT Active EQ COMPLETE MULTIVIT ADULT 50+ ORAL TABLET 1 tab po bid MULTIPLE VITAMINS-MINERALS 22377411994 Active Silvia Arell GAS OPERATIONS SUPERINTENDENT Active LORTAB 7.5-500 MG ORAL TABLET take one po Q6 hours 201 09/12/01 HYDROCODONE-ACETAMINOPHEN 48769799684 No Longer Active Nirmal Robbins RN Active [facility] MELATONIN 5-10 MG ORAL TABLET EXTENDED RELEASE Jair e one by mouth daily at bedtime MELATONIN-PYRIDOXINE 43665350005 No Longer Acti ve Bertrand Patel DO Active VITAMIN E 200 UNIT ORAL CAPSULE 1 cap po qd VITAM IN E 03382076959 No Longer Active Bertrand Patel DO Active B-12 1000 MCG ORAL CAPSULE 1 tab daily CYANOCOB ALAMIN 95443570397 No Longer Active Bertrand Patel DO Active METFORMIN HCL 500 MG ORAL TABLET 1 bid METFOR MIN HCL 25365394840 No Longer Active Bertrand Patel DO Active FUROSEMIDE 20 MG ORAL TABLET 1 pill by mouth daily if needed for edema FUROSEMIDE 01793707933 No Longer Active Bertrand Patel DO Active PRAVASTATIN SODIUM 20 MG ORAL TABLET 1 tablet by mouth daily at bedtime PRAVASTATIN SODIUM 42009658297 No Longer Active Bertrand Patel DO Active AUGMENTIN 875-125 MG ORAL TABLET 1 pill by mouth twice daily 201 09/10/00 AMOXICILLIN-POT CLAVULANATE 82276017465 No Longer Active Yoli Mercado MD PhD Active LEVAQUIN 500 MG ORAL TABLET 1 pill by mouth daily 2013 LEVOFLOXACIN 32610742462 No Longer Active Yoli Mercado MD PhD Acti ve MICARDIS 80 MG ORAL TABLET 1 tablet daily for blood pressure 07/30 TELMISARTAN 61877961758 Active Adriana Davalos RN Active MICARDIS HCT 80-12.5 MG ORAL TABLET 1 qd TELMISARTAN-HCTZ 80461068310 No Longer Active Bertrand Patel DO Active CINNAMON ALPHA LIPOIC AC CMPLX CAPSULE by mouth twice a day in AM by mouth twice a day in PM ALPHA LIPOIC PLOE-LD-YSJELPBH CA PS 85202342095 No Longer Active Bertrand Patel DO Active AZITHROMYCIN 500 MG INTRAVENOUS SOLUTION RECONSTITUTED 1 po q da y AZITHROMYCIN 27266785801 No Longer Active Bertrand Patel DO A ctive CYMBALTA 30 MG ORAL CAPSULE DELAYED RELEASE PARTICLES 1 cap by mouth daily DULOXETINE HCL 82739184605 No Longer Active Bertrand marquez DO Active CYMBALTA 60 MG ORAL CAPSULE DELAYED RELEASE PARTICLES 1 cap by mouth daily DULOXETINE HCL 29420068448 Active Adriana Davalos RN Active WELLBUTRIN 75 MG ORAL TABLET 2 times daily BUPR OPION HCL 43417242677 No Longer Active Bertrand Patel DO Active PROAIR HFA 108 (90 Base) MCG/ACT INHALATION AEROSOL SO LUTION take one to two puffs po Q4-6 hour prn cough and shortness of breath ALBUTEROL SULFATE 69476044324 Active Bertrand Patel DO Active AZITHROMYCIN 250 MG ORAL TABLET take 2 po today then take 1 po days 2-5 AZITHROMYCIN 43504197194 No Longer Active Adolfo OSORIO Active PERMETHRIN 5 % EXTERNAL CREAM apply neck to toes tonig ht and then rinse off in morning. repeat at 7 days PERMETHRIN 73959746161 No Longer Active Adolfo OSORIO Active AMOXICILLIN 500 MG ORAL CAPSULE 2 po BID x 10 days 201 07/15/00 AMOXICILLIN 23056416287 No Longer Active Yoli Mercado MD PhD Acti ve INSUPEN ULTRAFIN 31G X 6 MM USE DIRECTED INSULIN PEN NEEDLE 42348803159 No Longer Active Bertrand Patel DO Active TRANSDERM-SCOP (1.5 MG) 1 MG/3DAYS TRANSDERMAL PATCH 7 2 HOUR 1 patch applied behind ear q 3 day SCOPOLAMINE BASE 12176810437 No Lo nger Active Bertrand Patel DO Active MACRODANTIN 100 MG ORAL CAPSULE one p.o. b.i.d. x2 weeks NITROFURANTOIN MACROCRYSTAL 42302540145 No Longer Active Bertrand Patel DO Active MACRODANTIN 100 MG ORAL CAPSULE one p.o. b.i.d. x2 weeks MACRODANTIN 100 MG ORAL CAPSULE 7799510 NITROFURANTOIN MACROCRYSTAL Inactive TRANSDERM-SCOP (1.5 MG) 1 [...] days PERMETHRIN 5 % EXTER NAL CREAM 055453 PERMETHRIN Inactive WELLBUTRIN 75 MG ORAL TABLET 2 times daily WELLBUTRIN 75 MG ORAL TABLET BUPROPION HCL Inactive CYMBALTA 30 MG ORAL CAPSULE DELAYED RELEASE PARTICLES 1 cap by mouth daily CYMBALTA 30 MG ORAL CAPSULE DELAYED RELE ASE PARTICLES 506076 DULOXETINE HCL Inactive AZITHROMYCIN 500 MG INTRAVENOUS SOLUTION RECONSTITUTED 1 po q da y AZITHROMYCIN 500 MG INTRAVENOUS SOLUTION RECONSTITUTED 74765 856262 AZITHROMYCIN Inactive CINNAMON ALPHA LIPOIC AC CMPLX CAPSULE by mouth twice a day in AM by mouth twice a day in PM CINNAMON ALPHA LIPOIC AC CMPLX CAPSULE ALPHA LIPOIC MGTU-TE-[id number] CAPS Inactive MICARDIS HCT 80-12.5 MG ORAL TABLET 1 qd 07/30 MICARDIS HCT 80-12.5 MG ORAL TABLET 296095 TELMISARTAN-HCTZ Inactive PRAVASTATIN SODIUM 20 MG ORAL TABLET 1 tablet by mouth daily at bedtime PRAVASTATIN SODIUM 20 MG ORAL TABLET 265157 PRAVASTATIN SODIUM Inactive FUROSEMIDE 20 MG ORAL TABLET 1 pill by mouth daily if needed for edema FUROSEMIDE 20 MG ORAL TABLET 694882 FUROSEMIDE Inactive METFORMIN HCL 500 MG ORAL TABLET 1 bid METFORMIN HCL 500 MG ORAL TABLET 196491 METFORMIN HCL Inactive B-12 1000 MCG ORAL CAPSULE 1 tab daily B -12 1000 MCG ORAL CAPSULE CYANOCOBALAMIN Inactive VITAMIN E 200 UNIT ORAL CAPSULE 1 cap po qd 1 VITAMIN E 200 UNIT ORAL CAPSULE 1263836 VITAMIN E Inactive [facility] MELATONIN 5-10 MG [...] po daily AZITHROMYCIN 250 MG ORAL TABLET 984389 AZITHROMY BERNARDO Inactive SYMBICORT 160-4.5 MCG/ACT INHALATION AEROSOL 2 puffs BID 9 SYMBICORT 160-4.5 MCG/ACT INHALATION AEROSOL 1256454 BUDESONID E-FORMOTEROL FUMARATE Inactive ALBUTEROL SULFATE (2.5 MG/3ML) 0.083% INHALATION NEBUL IZATION SOLUTION one vial per nebulizer every 4-6 hours as needed ALBUTEROL SULFATE (2.5 MG/3ML) 0.083% INHALATION NEBULIZATION SOLUTION 259975 ALBUTER OL SULFATE Inactive NEBULIZER use as directed NEBULIZER NEBULI ZERS Inactive TESSALON PERLES 100 MG ORAL CAPSULE 1 tablet by mouth 3 times da juan pablo TESSALON PERLES 100 MG ORAL CAPSULE 927222 BENZONATATE Inactive CYCLOBENZAPRINE HCL 10 MG ORAL TABLET Take 1 tab TID PRN for mus triston pain CYCLOBENZAPRINE HCL 10 MG ORAL TABLET 901123 CYCLOBENZA ANUJA HCL Inactive AUGMENTIN 875-125 MG ORAL TABLET 1 po BID x 10 days 20 18/04/06 AUGMENTIN 875-125 MG ORAL TABLET AMOXICILLIN-POT CLAVULANATE Inactive BACTROBAN 2 % EXTERNAL CREAM Apply to affected area BID for up to 10 days BACTROBAN 2 % EXTERNAL CREAM MUPIROCIN CA LCIUM Inactive VITAMIN D3 13619 UNIT ORAL CAPSULE 1 pill Week x 4 mo nths for vitamin D deficiency/osteoporosis VITAMIN D3 69976 UNIT ORAL CAPSULE CHOLECALCIFEROL Inactive BENZONATATE 200 MG ORAL CAPSULE 1 three times a day as neede d for cough BENZONATATE 200 MG ORAL CAPSULE 774552 BENZONATA TE Inactive ZITHROMAX Z-MARTIN 250 MG ORAL TABLET 2 today and then 1 daily for 4 days ZITHROMAX Z-MARTIN 250 MG ORAL TABLET 601279 AZITHR OMYCIN Inactive ADDERALL 10 MG ORAL TABLET 1 tab twice daily 2 ADDERALL 10 MG ORAL TABLET 130383 AMPHETAMINE-DEXTROAMPHETAMINE Inactive LEVAQUIN 500 MG ORAL TABLET 1 tablet by mouth daily 21/06/28 LEVAQUIN 500 MG ORAL TABLET 096513 LEVOFLOXACIN Inactive AMOXICILLIN 500 MG ORAL CAPSULE 2 po BID x 10 days 201 07/15/00 AMOXICILLIN 500 MG ORAL CAPSULE 038917 AMOXICILLIN Inactive AZITHROMYCIN 250 MG ORAL TABLET take 2 po today then take 1 po days 2-5 AZITHROMYCIN 250 MG ORAL TABLET 151282 AZITHROMY BERNARDO Inactive LEVAQUIN 500 MG ORAL TABLET 1 pill by mouth daily 2013 LEVAQUIN 500 MG ORAL TABLET 744829 LEVOFLOXACIN Inactive AUGMENTIN 875-125 MG ORAL TABLET [...] days 08/02 PREDNISONE 20 MG ORAL TABLET 938714 PREDNISONE Inactive CIPRO 500 MG ORAL TABLET 1 tablet by mouth twice daily CIPRO 500 MG ORAL TABLET 644803 CIPROFLOXACIN HCL Inactive DOXYCYCLINE HYCLATE 100 MG ORAL CAPSULE 1 cap by mouth twice jong ly DOXYCYCLINE HYCLATE 100 MG ORAL CAPSULE 2472397 DOXYCYCL INE HYCLATE Inactive PREDNISONE 20 MG ORAL TABLET Take 3 tabs for 3 days, t hen 2 tabs for 3 days, then 1 tab for 3 days PREDNISONE 20 MG ORAL TABLET 312 615 PREDNISONE Inactive CHERATUSSIN AC 100-10 MG/5ML ORAL SYRUP 5ml po q6hr PRN Cough 20 21/03/15 CHERATUSSIN AC 100-10 MG/5ML ORAL SYRUP 042966 GUAIFENE SIN-CODEINE Inactive Vital Signs Date Name [...] Lab Report: Comp. Metabolic Panel, Uday Medel [facility] - Chemistry sodium, serum 140 mmol/L 031-274 9282/03/25 carbon dioxide, venous blood 33.2 mmol/L 21.0-32 [...] Lab Report: Comp. Metabolic Panel, Lipas e [facility] - Lab Alkaline phosphatase 91 50-136 Lab [...] negative Strep Screen Lot Number (CLIA Waived) [id number] Strep Screen Exp Date (CLIA Waived) 05/02/2020 Encounters Code Encounter Date Provider Facility CPT-03490 [id number] Vst-Est Level III 16:58:04 CDT Me nae Vazquez [facility]-68480 [id number] Vst-Est Level IV 14:46:36 RELIEF MATE Foster Patel [facility] CPT-52729 Level 3 Est. Patient 12:37:30 RELIEF MATE Galilea Se [facility] CPT-70543 Level 3 Est. Patient 11:40:23 CDT Bertrand marquez [facility] CPT-07076 Level 4 Est. Patient 15:33:35 RELIEF MATE Bertrand marquez [facility] CPT-59869 Level 4 Est. Patient 12:31:54 CDT Bertrand marquez [facility]-13231 Level 3 Est. Patient 11:27:00 RELIEF MATE Ike Deluna MD [facility]-92899 Level 3 Est. Patient 08:50:57 RELIEF MATE Silvia Are [facility] CPT-58643 Level 3 Est. Patient 10:04:13 CDT Bertrand marquez [facility] CPT-62481 Level 4 Est. Patient 16:02:10 RELIEF MATE Silvia Are [facility] CPT-69639 Level 3 Est. Patient 13:04:54 RELIEF MATE Silvia Are [facility]-66367 Level 3 Est. Patient 12:56:37 CDT Bertrand marquez [facility] CPT-37527 Level 3 Est. Patient 19:12:03 CDT Yoli tolbert MD [facility] CPT-89887 Level 3 Est. Patient 14:36:01 CDT Yoli tolbert MD PhD [facility] CPT-29481 Level 2 Est. Patient 08:00:22 CDT Jcarlos dc MD [facility]-58740 Level 3 Est. Patient 19:06:55 CDT Bertrand marquez [facility] CPT-63792 Level 3 Est. Patient 10:08:23 RELIEF MATE Bertrand Jacklyn marquez [facility] CPT-67837 Level 3 Est. Patient 16:37:54 RELIEF MATE Bertrand Jacklyn Ridge marquez [facility] CPT-85878 Level 3 Est. Patient 11:31:59 RELIEF MATE Bertrand Jacklyn marquez [facility] CPT-24864 Level 3 Est. Patient 10:20:08 CDT Gennadot Porfirioridge villasenor [facility] CPT-52265 Level 3 Est. Patient 13:45:20 CDT Sanket buckley [facility] CPT-28305 Level 3 Est. Patient 12:51:06 CDT Adolfo villasenor [facility] CPT-48835 Level 3 Est. Patient 11:22:51 RELIEF MATE Yoli tolbert MD PhD [facility] CPT-64045 Level 3 Est. Patient 13:33:19 CDT Bertrand Villasenor [place] marquez [facility] Procedures Code Procedure Name Date Entry Date Standard Desc ription CPT-21310 Sono abd valle iinc RUQ LUQ ascites search or pylorus - XRAY USE ONLY 09:11:06 CDT CPT-94353 Venipuncture Draw Fee 16:30:28 CDT [id number] ([id number]) Influenza immunization administe red or previously received 15:55:57 CDT CPT-30062 Wound Culture - LAB USE ONLY 15:45:25 CDT 2 CPT-61532 Venipuncture Draw Fee 10:23:01 CDT CPT-J0696 Rocephin 1000 mg (Ceftriaxone) 16:20:30 RELIEF MATE CPT-42636 Abx/Therapy Injection 16:20:29 RELIEF MATE CPT-J0696 Rocephin 1gm Inj Solr 15:51:59 RELIEF MATE CPT-42265 Chest 2V Frontal and Lat 15:20:28 RELIEF MATE 07/22 CPT-63506 Breathing Tx 14:51:55 RELIEF MATE CPT-99302 Breathing Tx 09:57:16 RELIEF MATE CPT-34437 Knee comp 4/> V 11:58:06 RELIEF MATE
--- OUTSIDE RECORDS SUMMARY | 2019-11-13 09:45 | XMS REPORT | Clinical Summary ---
Author Author Admin, Enrique Adamson Organization [employer] Address Unknown Phone Unavailable Allergies, Adverse Reactions, [...] Patel DO Acute bronchitis Narcolepsy 347.00 Active eBrtrand Patel DO Narcolepsy without cataplexy Animal bite [...] Mass Index 50.0-59.9, adult BMI 60-69.9 Active Berrtand Patel DO Body Mass Index 50.0-59.9, adult Wellness exam V70.0 Active Bertrand Patel DO Routine general medical examination at a health care facility URI - viral 465.9 Resolved Lina Maher FUR BLOWING MACHINE ATTENDANT-C Acute upper respiratory infections of unspecified site Pharyngitis acute 462 Resolved Lina Maher FUR BLOWING MACHINE ATTENDANT -C Acute pharyngitis Abdominal pain, upper 789.09 Active Lina Maher A PRN-C Abdominal pain, other specified site; multiple sites Flank pain, left 789.09 Active Lina Maher FUR BLOWING MACHINE ATTENDANT-C Abdominal pain, other specified site; multiple sites Morbid obesity due to excess calories 278.00 Resolved Lina Maher FUR BLOWING MACHINE ATTENDANT-C Obesity, unspecified Other abnormal findings in urine Active 202 Lina Maher FUR BLOWING MACHINE ATTENDANT-C Generalized colicky abdominal pain 789.07 Active 2 [...] 09/09/28 EDEMA LEG ICD-782.3 Inactive [facility] 201 01/01/02 SHORTNESS OF BREATH ICD-786.05 Inactive Yoli Mercado MD PhD RIB PAIN, RIGHT SIDED ICD-786.50 Inactive Yoli Mercado MD PhD KNEE PAIN, RIGHT ICD-719.46 Inactive [facility] Knee pain, left ICD-719.46 Inactive [facility] Pharyngitis-Acute ICD-462 Inactive Bertrand Redmond DO Polyuria ICD-788.42 Inactive Yoli Mercado MD P hD Cellulitis, leg, right ICD-682.6 Inactive Yuki Deluna MD Foreign body, ear ICD-931 Inactive Yoli salazar MD PhD Fatigue ICD-780.79 Inactive kIe Deluna MD 201 12/01/06 Headache ICD-784.0 Inactive Adele Feldman LPN 2017 Cough ICD-786.2 Inactive Adele Feldman [employer] 06/04 SINUSITIS, ACUTE ICD-461.9 Inactive Ike lange MD Fatigue ICD-780.79 Inactive Adele Feldman [employer] 2017 Bronchitis acute with bronchospasm ICD-466.0 I nactive Bertrand Patel DO Animal bite ICD-919.8 Inactive Adele Feldman LP N Mycoplasma infection ICD-041.81 Inactive Anit a Feldman [employer] Amenorrhea, secondary ICD-626.0 Inactive Ani ta Feldman [employer] Left maxillary sinusitis ICD-473.0 Inactive Bertrand Patel DO URI - viral ICD-465.9 Inactive Lina Maher APRN -C Pharyngitis acute ICD-462 Inactive Lina elliott FUR BLOWING MACHINE ATTENDANT-C Morbid obesity due to excess calories ICD-278.00 Inactive Carla ALBERTO Medication List Medication Instructions Start Date Stop Date Generic Name NDC Status Provider Patient Instruction ZOFRAN 4 MG ORAL TABLET 1 tablet by mouth every 6 hour PRN nausea 2 ONDANSETRON HCL 08205688334 Active Adriana Davalos RN Active CYCLOBENZAPRINE HCL 10 MG ORAL TABLET 1 tablet by mout h three times a day as needed for muscle spasm CYCLOBENZAPRINE HCL 13032200856 Ac tive Lina Maher APRN-C Active HYDROCODONE-ACETAMINOPHEN 7.5-325 MG TABS 1 TAB EVERY 6 HOUR S PRN FOR PAIN HYDROCODONE-ACETAMINOPHEN 68910559755 Active Bertrand Patel DO Active TELMISARTAN 80 MG TABS 1 TABLET PO DAILY FOR BLOOD PRESSURE TELMISARTAN 25012093499 Active Adriana Davalos RN Active MODAFINIL 200 MG TABS 1/2 TABLET PO IN THE AM AND 1/2 TABLET AT NOON MODAFINIL 98950448638 Active Adriana Davalos RN Activ e DULOXETINE HCL 60 MG CPEP 1 CAPSULE PO DAILY DU LOXETINE HCL 01537497508 Active Adriana Davalos RN Active AMLODIPINE 5MG 1 TABLET PO DAILY FOR BLOOD PRESSURE AMLODIPINE BESYLATE 76685719355 Active Adriana Davalos RN Active ALPRAZOLAM 0.5 MG TABS TAKE 1 TABLET BY MOUTH THREE TIMES DAILY 201 02/10/05 ALPRAZOLAM 85882751270 Active Adriana Davalos RN Active SUDAFED 12 HOUR 120 MG ORAL TABLET EXTENDED RELEASE 12 HOUR 1 pill twice daily if for congestion PSEUDOEPHEDRINE HCL 99024143515 Active Silvia Vazquez APRN Active CHERATUSSIN AC 100-10 MG/5ML ORAL SYRUP 5ml po q6hr PRN Cough 20 21/03/15 GUAIFENESIN-CODEINE 62815696273 No Longer Active Silvia Vazquez APRN Active FLUTICASONE PROPIONATE 50 MCG/ACT NASAL SUSPENSION 2 s prays per nostril daily for 2 weeks, then 1 spray each nostril PRN FLUTI CASONE PROPIONATE 90746292605 Active Silvia Vazquez APRN Active EVENING PRIMROSE OIL 1000 MG ORAL CAPSULE 1 capsule once daily EVENING PRIMROSE OIL 06473446092 Active Bertrand Patel DO Active LEVAQUIN 500 MG ORAL TABLET 1 tablet by mouth daily 20 21/06/28 LEVOFLOXACIN 81736104771 No Longer Active Bertrand Patel DO Active PREDNISONE 20 MG ORAL TABLET Take 3 tabs for 3 days, t hen 2 tabs for 3 days, then 1 tab for 3 days PREDNISONE 03316070510 No Rainer fatou Active Galilea Sell FUR BLOWING MACHINE ATTENDANT Active DOXYCYCLINE HYCLATE 100 MG ORAL CAPSULE 1 cap by mouth twice jong ly DOXYCYCLINE HYCLATE 19413534279 No Longer Active Galilea Sell FUR BLOWING MACHINE ATTENDANT Active ADDERALL 10 MG ORAL TABLET 1 tab twice daily 2 AMPHETAMINE-DEXTROAMPHETAMINE 51640614515 No Longer Active Nitza Phi llips Scribe Active ZITHROMAX Z-MARTIN 250 MG ORAL TABLET 2 today and then 1 daily for 4 days AZITHROMYCIN 14625857824 No Longer Active Nitza Osman lips Scribe Active BENZONATATE 200 MG ORAL CAPSULE 1 three times a day as neede d for cough BENZONATATE 93264962840 No Longer Active Nitza Osman lips Scribe Active VITAMIN D3 55640 UNIT ORAL CAPSULE 1 pill Week x 4 mo nths for vitamin D deficiency/osteoporosis CHOLECALCIFEROL 67452887665 N o Longer Active Layla Garcia Active BACTROBAN 2 % EXTERNAL CREAM Apply to affected area BID for up to 10 days MUPIROCIN CALCIUM 72831704804 No Longer Active Ike Deluna MD Active CIPRO 500 MG ORAL TABLET 1 tablet by mouth twice daily CIPROFLOXACIN HCL 75398831892 No Longer Active Adriana Bender LPN Active AUGMENTIN 875-125 MG ORAL TABLET 1 po BID x 10 days 18/04/06 AMOXICILLIN-POT CLAVULANATE 10438266741 No Longer Active Adriana Bender LPN Active CYCLOBENZAPRINE HCL 10 MG ORAL TABLET Take 1 tab TID PRN for mus triston pain CYCLOBENZAPRINE HCL 65721632819 No Longer Active Bertrand Patel DO Active PERFECTOSALTIAGO PERLES 100 MG ORAL CAPSULE 1 tablet by mouth 3 times da juan pablo BENZONATATE 89667832192 No Longer Active Bertrand Patel DO Ac tive NEBULIZER use as directed NEBULIZERS 01919444999 No Longer Active Bertrand Patel DO Active ALBUTEROL SULFATE (2.5 MG/3ML) 0.083% INHALATION NEBUL IZATION SOLUTION one vial per nebulizer every 4-6 hours as needed ALBUTERO L SULFATE 49498461228 No Longer Active Bertrand Patel DO Active SYMBICORT 160-4.5 MCG/ACT INHALATION AEROSOL 2 puffs BID 9 BUDESONIDE-FORMOTEROL FUMARATE 12903382738 No Longer Active Bertrand Patel DO Active PREDNISONE 20 MG ORAL TABLET take 3 tabs daily for 3 d ays, 2 tabs daily for 3 days, 1 tab daily for 3 days, 1/2 tab daily for 3 days 08/02 PREDNISONE 87626276616 No Longer Active Silvia Arell FUR BLOWING MACHINE ATTENDANT Active AZITHROMYCIN 250 MG ORAL TABLET Take 2 tabs po today then 1 tab po daily AZITHROMYCIN 39359242875 No Longer Active Silvia Arell FUR BLOWING MACHINE ATTENDANT Active AUGMENTIN 875-125 MG ORAL TABLET 1 po BID x 10 days 20 19/07/13 AMOXICILLIN-POT CLAVULANATE 73604354628 No Longer Active Adriana Bender LPN Active CHEWABLE CALCIUM 500-200-40 MG-UNT-MCG ORAL TABLET CHEWABLE 1 chew tab bid CALCIUM-VITAMIN D-VITAMIN K 99082334484 Active Silvia Are ll FUR BLOWING MACHINE ATTENDANT Active EQ COMPLETE MULTIVIT ADULT 50+ ORAL TABLET 1 tab po bid MULTIPLE VITAMINS-MINERALS 56105148353 Active Silvia Arell FUR BLOWING MACHINE ATTENDANT Active LORTAB 7.5-500 MG ORAL TABLET take one po Q6 hours 201 09/12/01 HYDROCODONE-ACETAMINOPHEN 46633856644 No Longer Active Nirmal Robbins RN Active [facility] MELATONIN 5-10 MG ORAL TABLET EXTENDED RELEASE Jair e one by mouth daily at bedtime MELATONIN-PYRIDOXINE 54072451098 No Longer Acti ve Bertrand Patel DO Active VITAMIN E 200 UNIT ORAL CAPSULE 1 cap po qd VITAM IN E 36661713749 No Longer Active Bertrand Patel DO Active B-12 1000 MCG ORAL CAPSULE 1 tab daily CYANOCOB ALAMIN 86114339277 No Longer Active Bertrand Patel DO Active METFORMIN HCL 500 MG ORAL TABLET 1 bid METFOR MIN HCL 80922166629 No Longer Active Bertrand Patel DO Active FUROSEMIDE 20 MG ORAL TABLET 1 pill by mouth daily if needed for edema FUROSEMIDE 50181236369 No Longer Active Bertrand Patel DO Active PRAVASTATIN SODIUM 20 MG ORAL TABLET 1 tablet by mouth daily at bedtime PRAVASTATIN SODIUM 87208823334 No Longer Active Bertrand Patel DO Active AUGMENTIN 875-125 MG ORAL TABLET 1 pill by mouth twice daily 201 09/10/00 AMOXICILLIN-POT CLAVULANATE 86021081275 No Longer Active Yoli Mercado MD PhD Active LEVAQUIN 500 MG ORAL TABLET 1 pill by mouth daily 2013 LEVOFLOXACIN 05107997351 No Longer Active Yoli Mercado MD PhD Acti ve MICARDIS 80 MG ORAL TABLET 1 tablet daily for blood pressure 07/30 TELMISARTAN 20927330874 Active Adriana Davalos RN Active MICARDIS HCT 80-12.5 MG ORAL TABLET 1 qd TELMISARTAN-HCTZ 60553754907 No Longer Active Bertrand Patel DO Active CINNAMON ALPHA LIPOIC AC CMPLX CAPSULE by mouth twice a day in AM by mouth twice a day in PM ALPHA LIPOIC MDUA-SW-FOBWOCZO CA PS 43665236653 No Longer Active Bertrand Patel DO Active AZITHROMYCIN 500 MG INTRAVENOUS SOLUTION RECONSTITUTED 1 po q da y AZITHROMYCIN 22200633454 No Longer Active Bertrand Patel DO A ctive CYMBALTA 30 MG ORAL CAPSULE DELAYED RELEASE PARTICLES 1 cap by mouth daily DULOXETINE HCL 65309412750 No Longer Active Bertrand marquez DO Active CYMBALTA 60 MG ORAL CAPSULE DELAYED RELEASE PARTICLES 1 cap by mouth daily DULOXETINE HCL 71813484327 Active Adriana Davalos RN Active WELLBUTRIN 75 MG ORAL TABLET 2 times daily BUPR OPION HCL 08490019197 No Longer Active Bertrand Patel DO Active PROAIR HFA 108 (90 Base) MCG/ACT INHALATION AEROSOL SO LUTION take one to two puffs po Q4-6 hour prn cough and shortness of breath ALBUTEROL SULFATE 89771078895 Active Bertrand Patel DO Active AZITHROMYCIN 250 MG ORAL TABLET take 2 po today then take 1 po days 2-5 AZITHROMYCIN 68040464484 No Longer Active Adolfo OSORIO Active PERMETHRIN 5 % EXTERNAL CREAM apply neck to toes tonig ht and then rinse off in morning. repeat at 7 days PERMETHRIN 78755791658 No Longer Active Adolfo OSORIO Active AMOXICILLIN 500 MG ORAL CAPSULE 2 po BID x 10 days 201 07/15/00 AMOXICILLIN 74784694648 No Longer Active Yoli Mercado MD PhD Acti ve INSUPEN ULTRAFIN 31G X 6 MM USE DIRECTED INSULIN PEN NEEDLE 43426237446 No Longer Active Bertrand Patel DO Active TRANSDERM-SCOP (1.5 MG) 1 MG/3DAYS TRANSDERMAL PATCH 7 2 HOUR 1 patch applied behind ear q 3 day SCOPOLAMINE BASE 07274975047 No Lo nger Active Bertrand Patel DO Active MACRODANTIN 100 MG ORAL CAPSULE one p.o. b.i.d. x2 weeks NITROFURANTOIN MACROCRYSTAL 64174191868 No Longer Active Bertrand Patel DO Active MACRODANTIN 100 MG ORAL CAPSULE one p.o. b.i.d. x2 weeks MACRODANTIN 100 MG ORAL CAPSULE 8828296 NITROFURANTOIN MACROCRYSTAL Inactive TRANSDERM-SCOP (1.5 MG) 1 [...] days PERMETHRIN 5 % EXTER NAL CREAM 009654 PERMETHRIN Inactive WELLBUTRIN 75 MG ORAL TABLET 2 times daily WELLBUTRIN 75 MG ORAL TABLET BUPROPION HCL Inactive CYMBALTA 30 MG ORAL CAPSULE DELAYED RELEASE PARTICLES 1 cap by mouth daily CYMBALTA 30 MG ORAL CAPSULE DELAYED RELE ASE PARTICLES 303065 DULOXETINE HCL Inactive AZITHROMYCIN 500 MG INTRAVENOUS SOLUTION RECONSTITUTED 1 po q da y AZITHROMYCIN 500 MG INTRAVENOUS SOLUTION RECONSTITUTED 81849 868786 AZITHROMYCIN Inactive CINNAMON ALPHA LIPOIC AC CMPLX CAPSULE by mouth twice a day in AM by mouth twice a day in PM CINNAMON ALPHA LIPOIC AC CMPLX CAPSULE ALPHA LIPOIC [id number] CAPS Inactive MICARDIS HCT 80-12.5 MG ORAL TABLET 1 qd 07/30 MICARDIS HCT 80-12.5 MG ORAL TABLET 261257 TELMISARTAN-HCTZ Inactive PRAVASTATIN SODIUM 20 MG ORAL TABLET 1 tablet by mouth daily at bedtime PRAVASTATIN SODIUM 20 MG ORAL TABLET 628290 PRAVASTATIN SODIUM Inactive FUROSEMIDE 20 MG ORAL TABLET 1 pill by mouth daily if needed for edema FUROSEMIDE 20 MG ORAL TABLET 034372 FUROSEMIDE Inactive METFORMIN HCL 500 MG ORAL TABLET 1 bid METFORMIN HCL 500 MG ORAL TABLET 888232 METFORMIN HCL Inactive B-12 1000 MCG ORAL CAPSULE 1 tab daily B -12 1000 MCG ORAL CAPSULE CYANOCOBALAMIN Inactive VITAMIN E 200 UNIT ORAL CAPSULE 1 cap po qd 1 VITAMIN E 200 UNIT ORAL CAPSULE 3487839 VITAMIN E Inactive [facility] MELATONIN 5-10 MG [...] po daily AZITHROMYCIN 250 MG ORAL TABLET 223900 AZITHROMY BERNARDO Inactive SYMBICORT 160-4.5 MCG/ACT INHALATION AEROSOL 2 puffs BID 9 SYMBICORT 160-4.5 MCG/ACT INHALATION AEROSOL 6721898 BUDESONID E-FORMOTEROL FUMARATE Inactive ALBUTEROL SULFATE (2.5 MG/3ML) 0.083% INHALATION NEBUL IZATION SOLUTION one vial per nebulizer every 4-6 hours as needed ALBUTEROL SULFATE (2.5 MG/3ML) 0.083% INHALATION NEBULIZATION SOLUTION 456236 ALBUTER OL SULFATE Inactive NEBULIZER use as directed NEBULIZER NEBULI ZERS Inactive TESSALON PERLES 100 MG ORAL CAPSULE 1 tablet by mouth 3 times da juan pablo TESSALON PERLES 100 MG ORAL CAPSULE 762055 BENZONATATE Inactive CYCLOBENZAPRINE HCL 10 MG ORAL TABLET Take 1 tab TID PRN for mus triston pain CYCLOBENZAPRINE HCL 10 MG ORAL TABLET 251152 CYCLOBENZA ANUJA HCL Inactive AUGMENTIN 875-125 MG ORAL TABLET 1 po BID x 10 days 20 18/04/06 AUGMENTIN 875-125 MG ORAL TABLET AMOXICILLIN-POT CLAVULANATE Inactive BACTROBAN 2 % EXTERNAL CREAM Apply to affected area BID for up to 10 days BACTROBAN 2 % EXTERNAL CREAM MUPIROCIN CA LCIUM Inactive VITAMIN D3 81612 UNIT ORAL CAPSULE 1 pill Week x 4 mo nths for vitamin D deficiency/osteoporosis VITAMIN D3 86055 UNIT ORAL CAPSULE CHOLECALCIFEROL Inactive BENZONATATE 200 MG ORAL CAPSULE 1 three times a day as neede d for cough BENZONATATE 200 MG ORAL CAPSULE 180835 BENZONATA TE Inactive ZITHROMAX Z-MARTIN 250 MG ORAL TABLET 2 today and then 1 daily for 4 days ZITHROMAX Z-MARTIN 250 MG ORAL TABLET 516334 AZITHR OMYCIN Inactive ADDERALL 10 MG ORAL TABLET 1 tab twice daily 2 ADDERALL 10 MG ORAL TABLET 034448 AMPHETAMINE-DEXTROAMPHETAMINE Inactive LEVAQUIN 500 MG ORAL TABLET 1 tablet by mouth daily 21/06/28 LEVAQUIN 500 MG ORAL TABLET 858067 LEVOFLOXACIN Inactive AMOXICILLIN 500 MG ORAL CAPSULE 2 po BID x 10 days 201 07/15/00 AMOXICILLIN 500 MG ORAL CAPSULE 707836 AMOXICILLIN Inactive AZITHROMYCIN 250 MG ORAL TABLET take 2 po today then take 1 po days 2-5 AZITHROMYCIN 250 MG ORAL TABLET 665027 AZITHROMY BERNARDO Inactive LEVAQUIN 500 MG ORAL TABLET 1 pill by mouth daily 2013 LEVAQUIN 500 MG ORAL TABLET 527848 LEVOFLOXACIN Inactive AUGMENTIN 875-125 MG ORAL TABLET [...] days 08/02 PREDNISONE 20 MG ORAL TABLET 457497 PREDNISONE Inactive CIPRO 500 MG ORAL TABLET 1 tablet by mouth twice daily CIPRO 500 MG ORAL TABLET 092260 CIPROFLOXACIN HCL Inactive DOXYCYCLINE HYCLATE 100 MG ORAL CAPSULE 1 cap by mouth twice jong ly DOXYCYCLINE HYCLATE 100 MG ORAL CAPSULE 6093460 DOXYCYCL INE HYCLATE Inactive PREDNISONE 20 MG ORAL TABLET Take 3 tabs for 3 days, t hen 2 tabs for 3 days, then 1 tab for 3 days PREDNISONE 20 MG ORAL TABLET 312 615 PREDNISONE Inactive CHERATUSSIN AC 100-10 MG/5ML ORAL SYRUP 5ml po q6hr PRN Cough 20 21/03/15 CHERATUSSIN AC 100-10 MG/5ML ORAL SYRUP 519547 GUAIFENE SIN-CODEINE Inactive Vital Signs Date Name [...] Lab Report: Comp. Metabolic Panel, [facility] - Chemistry sodium, serum 140 mmol/L 084-916 0643/03/25 carbon dioxide, venous blood 33.2 mmol/L 21.0-32 [...] Lab Report: Comp. Metabolic Panel, Lip[facility] - Lab Alkaline phosphatase 91 50-136 Lab [...] negative Strep Screen Lot Number (CLIA Waived) [id number] Strep Screen Exp Date (CLIA Waived) 05/02/2020 Encounters Code Encounter Date Provider Facility CPT-74874 [id number] Vst-Est Level III 16:58:04 CDT Me nae Vazquez [facility]-50048 [id number] Vst-Est Level IV 14:46:36 MICROFILM 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 Foster Patel [facility] CPT-79292 Level 3 Est. Patient 12:37:30 MICROFILM 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 Galilea Se [facility] CPT-61314 Level 3 Est. Patient 11:40:23 CDT Bertrand marquez [facility] CPT-99553 Level 4 Est. Patient 15:33:35 MICROFILM 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 Bertrand marquez [facility] CPT-92420 Level 4 Est. Patient 12:31:54 CDT Bertrand marquez [facility]-71167 Level 3 Est. Patient 11:27:00 MICROFILM 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 Ike Deluna MD [facility]-93816 Level 3 Est. Patient 08:50:57 MICROFILM 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 Silvia Are [facility] CPT-53808 Level 3 Est. Patient 10:04:13 CDT Bertrand marquez [facility] CPT-71883 Level 4 Est. Patient 16:02:10 MICROFILM 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 Silvia Are [facility] CPT-64798 Level 3 Est. Patient 13:04:54 MICROFILM 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 Silvia Are [facility]-03708 Level 3 Est. Patient 12:56:37 CDT Bertrand marquez [facility] CPT-73562 Level 3 Est. Patient 19:12:03 CDT Yoli tolbert MD [facility] CPT-50097 Level 3 Est. Patient 14:36:01 CDT Yoli tolbert MD PhD [facility] CPT-08771 Level 2 Est. Patient 08:00:22 CDT Jcarlos dc MD [facility]-51768 Level 3 Est. Patient 19:06:55 CDT Bertrand marquez [facility] CPT-92518 Level 3 Est. Patient 10:08:23 MICROFILM 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 Bertrand Jacklyn marquez [facility] CPT-06434 Level 3 Est. Patient 16:37:54 MICROFILM 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 Bertrand Jacklyn [place] marquez [facility] CPT-90291 Level 3 Est. Patient 11:31:59 MICROFILM 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 Bertrand Jacklyn marquez [facility] CPT-24471 Level 3 Est. Patient 10:20:08 CDT Gennadot Porfirioridge villasenor [facility] CPT-46026 Level 3 Est. Patient 13:45:20 CDT Sanket buckley [facility] CPT-91384 Level 3 Est. Patient 12:51:06 CDT Adolfo villasenor [facility] CPT-10660 Level 3 Est. Patient 11:22:51 MICROFILM 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 Yoli tolbert MD PhD [facility] CPT-79079 Level 3 Est. Patient 13:33:19 CDT Bertrand Villasenor [place] marquez [facility] Procedures Code Procedure Name Date Entry Date Standard Desc ription CPT-49109 Sono abd valle iinc RUQ LUQ ascites search or pylorus - XRAY USE ONLY 09:11:06 CDT CPT-09840 Venipuncture Draw Fee 16:30:28 CDT CPT-QI9812I (4274F) Influenza immunization administe red or previously received 15:55:57 CDT CPT-74192 Wound Culture - LAB USE ONLY 15:45:25 CDT 2 CPT-86063 Venipuncture Draw Fee 10:23:01 CDT CPT-J0696 Rocephin 1000 mg (Ceftriaxone) 16:20:30 MICROFILM 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 CPT-89431 Abx/Therapy Injection 16:20:29 MICROFILM 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 CPT-J0696 Rocephin 1gm Inj Solr 15:51:59 MICROFILM 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 CPT-71391 Chest 2V Frontal and Lat 15:20:28 MICROFILM 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 07/22 CPT-17518 Breathing Tx 14:51:55 MICROFILM 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 CPT-55629 Breathing Tx 09:57:16 MICROFILM 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 CPT-47350 Knee comp 4/> V 11:58:06 MICROFILM 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
--- OUTSIDE RECORDS SUMMARY | 2019-11-13 09:46 | XMS REPORT | Clinical Summary ---
Author Author Admin, Enrique Adamson Organization [facility] Address Unknown Phone Unavailable Allergies, [...] site Amenorrhea, secondary 626.0 Resolved Kri sti Mullnis Scribe Absence of menstruation Depression 311 Active [...] URI - viral 465.9 Resolved Lina Maher TELEPRINTER-C Acute upper respiratory infections of unspecified site Pharyngitis acute 462 Resolved Lina Maher TELEPRINTER -C Acute pharyngitis Abdominal pain, upper 789.09 Active Lina Maher A PRN-C Abdominal pain, other specified site; multiple sites Flank pain, left 789.09 Active Lina Maher TELEPRINTER-C Abdominal pain, other specified site; multiple sites Morbid obesity due to excess calories 278.00 Resolved Lina Maher TELEPRINTER-C Obesity, unspecified Other abnormal findings in urine Active 202 Lina Maher TELEPRINTER-C Generalized colicky abdominal pain 789.07 Active 2 Lina Maher APRN-C Abdominal pain, generalized HEALTH SCREENING ICD-V70.0 Inactive Yoli sabillon MD PhD SCABIES ICD-133.0 Inactive Yoli Mercado MD PhD 201 07/14/20 SINUSITIS, FRONTAL, ACUTE ICD-461.1 Inactive Yoli Mercado MD PhD COUGH ICD-786.2 Inactive Yoli Mercado MD PhD 201 09/09/28 FH DIABETES ICD-V18.0 Inactive Yoli Mercado MD PhD 20 14/02/29 SHORTNESS OF BREATH ICD-786.05 Inactive Yoli Mercado MD PhD RIB PAIN, RIGHT SIDED ICD-786.50 Inactive Yoli Mercado MD PhD Knee pain, left ICD-719.46 Inactive Adele damico LPN Pharyngitis-Acute ICD-462 Inactive Bertrand Redmond DO Polyuria ICD-788.42 Inactive Yoli Mercado MD P EDEMA LEG ICD-782.3 Inactive Adele Feldman PLANISHER 201 01/01/02 Foreign body, ear ICD-931 Inactive Yoli salazar MD PhD KNEE PAIN, RIGHT ICD-719.46 Inactive Adele Yin chiu PLANISHER Headache ICD-784.0 Inactive Adele Feldman LPN 2017 Cough ICD-786.2 Inactive Adele Gaston HUNGN 06/04 SINUSITIS, ACUTE ICD-461.9 Inactive Ike lange MD Fatigue ICD-780.79 Inactive Adele Feldman PLANISHER 2017 Cellulitis, leg, right ICD-682.6 Inactive Yuki Deluna MD Bronchitis acute with bronchospasm ICD-466.0 I nactive Bertrand Patel DO Animal bite ICD-919.8 Inactive Adele Feldman LP N Mycoplasma infection ICD-041.81 Inactive Anit a Feldman PLANISHER Amenorrhea, secondary ICD-626.0 Inactive Ani ta Gaston HUNGN Left maxillary sinusitis ICD-473.0 Inactive Bertrand Patel DO URI - viral ICD-465.9 Inactive Lina Maher APRN -C Pharyngitis acute ICD-462 Inactive Lina elliott TELEPRINTER-C Morbid obesity due to excess calories ICD-278.00 Inactive Carla Eric RMA Fatigue ICD-780.79 Inactive Ike Deluna MD 201 12/01/06 Medication List Medication Instructions Start Date Stop Date Generic Name NDC Status Provider Patient Instruction CYCLOBENZAPRINE HCL 10 MG ORAL TABLET 1 tablet by mout h three times a day as needed for muscle spasm CYCLOBENZAPRINE HCL 18879659365 Ac tive Lina Maher APRN-C Active HYDROCODONE-ACETAMINOPHEN 7.5-325 MG TABS 1 TAB EVERY 6 HOUR S PRN FOR PAIN HYDROCODONE-ACETAMINOPHEN 94002091897 Active Bertrand Patel DO Active TELMISARTAN 80 MG TABS 1 TABLET PO DAILY FOR BLOOD PRESSURE TELMISARTAN 26775984921 Active Adriana Davalos RN Active MODAFINIL 200 MG TABS 1/2 TABLET PO IN THE AM AND 1/2 TABLET AT NOON MODAFINIL 81262513186 Active Adriana Davalos RN Activ e DULOXETINE HCL 60 MG CPEP 1 CAPSULE PO DAILY DU LOXETINE HCL 53550392943 Active Adriana Davalos RN Active AMLODIPINE 5MG 1 TABLET PO DAILY FOR BLOOD PRESSURE AMLODIPINE BESYLATE 96209361803 Active Adriana Davalos RN Active ALPRAZOLAM 0.5 MG TABS TAKE 1 TABLET BY MOUTH THREE TIMES DAILY 201 02/10/05 ALPRAZOLAM 43443000546 Active Adriana Davalos RN Active SUDAFED 12 HOUR 120 MG ORAL TABLET EXTENDED RELEASE 12 HOUR 1 pill twice daily if for congestion PSEUDOEPHEDRINE HCL 64138757966 Active Silvia Vazquez APRN Active CHERATUSSIN AC 100-10 MG/5ML ORAL SYRUP 5ml po q6hr PRN Cough 20 21/03/15 GUAIFENESIN-CODEINE 40762779609 No Longer Active Silvia Vazquez APRN Active FLUTICASONE PROPIONATE 50 MCG/ACT NASAL SUSPENSION 2 s prays per nostril daily for 2 weeks, then 1 spray each nostril PRN FLUTI CASONE PROPIONATE 53353936306 Active Silvia Vazquez APRN Active EVENING PRIMROSE OIL 1000 MG ORAL CAPSULE 1 capsule once daily EVENING PRIMROSE OIL 96034319949 Active Bertrand Patel DO Active LEVAQUIN 500 MG ORAL TABLET 1 tablet by mouth daily 20 21/06/28 LEVOFLOXACIN 21540361646 No Longer Active Bertrand Patel DO Active PREDNISONE 20 MG ORAL TABLET Take 3 tabs for 3 days, t hen 2 tabs for 3 days, then 1 tab for 3 days PREDNISONE 69672300851 No Rainer fatou Active Galilea Sell TELEPRINTER Active DOXYCYCLINE HYCLATE 100 MG ORAL CAPSULE 1 cap by mouth twice jong ly DOXYCYCLINE HYCLATE 18028713010 No Longer Active Galilea Sell TELEPRINTER Active ADDERALL 10 MG ORAL TABLET 1 tab twice daily 2 AMPHETAMINE-DEXTROAMPHETAMINE 39291564293 No Longer Active Nitza Phi llips Scribe Active ZITHROMAX Z-MARTIN 250 MG ORAL TABLET 2 today and then 1 daily for 4 days AZITHROMYCIN 55716073150 No Longer Active Nitza Brewer lips Scribe Active BENZONATATE 200 MG ORAL CAPSULE 1 three times a day as neede d for cough BENZONATATE 41014506851 No Longer Active Nitzalida Brewer lips Scribe Active VITAMIN D3 88125 UNIT ORAL CAPSULE 1 pill Week x 4 mo nths for vitamin D deficiency/osteoporosis CHOLECALCIFEROL 79469369016 N o Longer Active Layla Garcia Active BACTROBAN 2 % EXTERNAL CREAM Apply to affected area BID for up to 10 days MUPIROCIN CALCIUM 94154431635 No Longer Active Ike Deluna MD Active CIPRO 500 MG ORAL TABLET 1 tablet by mouth twice daily CIPROFLOXACIN HCL 82275617087 No Longer Active Adriana Bender LPN Active AUGMENTIN 875-125 MG ORAL TABLET 1 po BID x 10 days 18/04/06 AMOXICILLIN-POT CLAVULANATE 99611224457 No Longer Active Adriana Bender LPN Active CYCLOBENZAPRINE HCL 10 MG ORAL TABLET Take 1 tab TID PRN for mus triston pain CYCLOBENZAPRINE HCL 03590523038 No Longer Active Bertrand Patel DO Active TESSALON PERLES 100 MG ORAL CAPSULE 1 tablet by mouth 3 times da juan pablo BENZONATATE 91885323402 No Longer Active Bertrand Patel DO Ac tive NEBULIZER use as directed NEBULIZERS 03512003080 No Longer Active Bertrand Patel DO Active ALBUTEROL SULFATE (2.5 MG/3ML) 0.083% INHALATION NEBUL IZATION SOLUTION one vial per nebulizer every 4-6 hours as needed ALBUTERO L SULFATE 68585941674 No Longer Active Bertrand Patel DO Active SYMBICORT 160-4.5 MCG/ACT INHALATION AEROSOL 2 puffs BID 9 BUDESONIDE-FORMOTEROL FUMARATE 07256754529 No Longer Active Bertrand W Jorge DO Active PREDNISONE 20 MG ORAL TABLET take 3 tabs daily for 3 d ays, 2 tabs daily for 3 days, 1 tab daily for 3 days, 1/2 tab daily for 3 days 08/02 PREDNISONE 22580364632 No Longer Active Silvia Vazquez TELEPRINTER Active AZITHROMYCIN 250 MG ORAL TABLET Take 2 tabs po today then 1 tab po daily AZITHROMYCIN 28488103053 No Longer Active Silvia Faisalll TELEPRINTER Active AUGMENTIN 875-125 MG ORAL TABLET 1 po BID x 10 days 20 19/07/13 AMOXICILLIN-POT CLAVULANATE 75046954712 No Longer Active Adriana Bender PLANISHER Active CHEWABLE CALCIUM 500-200-40 MG-UNT-MCG ORAL TABLET CHEWABLE 1 chew tab bid CALCIUM-VITAMIN D-VITAMIN K 52892214858 Active Silvia Are ll TELEPRINTER Active EQ COMPLETE MULTIVIT ADULT 50+ ORAL TABLET 1 tab po bid MULTIPLE VITAMINS-MINERALS 52451023738 Active Silvia Vazquez TELEPRINTER Active LORTAB 7.5-500 MG ORAL TABLET take one po Q6 hours 201 09/12/01 HYDROCODONE-ACETAMINOPHEN 42120973589 No Longer Active Nirmal Robbins RN Active [facility] MELATONIN 5-10 MG ORAL TABLET EXTENDED RELEASE Jair e one by mouth daily at bedtime MELATONIN-PYRIDOXINE 14792544465 No Longer Acti ve Bertrand Patel DO Active VITAMIN E 200 UNIT ORAL CAPSULE 1 cap po qd VITAM IN E 97130387999 No Longer Active Bertrand Patel DO Active B-12 1000 MCG ORAL CAPSULE 1 tab daily CYANOCOB ALAMIN 86216302173 No Longer Active Bertrand Patel DO Active METFORMIN HCL 500 MG ORAL TABLET 1 bid METFOR MIN HCL 38945154814 No Longer Active Bertrand Patel DO Active FUROSEMIDE 20 MG ORAL TABLET 1 pill by mouth daily if needed for edema FUROSEMIDE 20211064008 No Longer Active Bertrand Patel DO Active PRAVASTATIN SODIUM 20 MG ORAL TABLET 1 tablet by mouth daily at bedtime PRAVASTATIN SODIUM 13408301938 No Longer Active Bertrand Patel DO Active AUGMENTIN 875-125 MG ORAL TABLET 1 pill by mouth twice daily 201 09/10/00 AMOXICILLIN-POT CLAVULANATE 48326626087 No Longer Active Yoli Mercado MD PhD Active LEVAQUIN 500 MG ORAL TABLET 1 pill by mouth daily 2013 LEVOFLOXACIN 54782347898 No Longer Active Yoli Mercado MD PhD Acti ve MICARDIS 80 MG ORAL TABLET 1 tablet daily for blood pressure 07/30 TELMISARTAN 19585605801 Active Adriana Davalos RN Active MICARDIS HCT 80-12.5 MG ORAL TABLET 1 qd TELMISARTAN-HCTZ 13844054738 No Longer Active Bertrand Patel DO Active CINNAMON ALPHA LIPOIC AC CMPLX CAPSULE by mouth twice a day in AM by mouth twice a day in PM ALPHA LIPOIC [id number]-OD-[id number] CA PS 16032020073 No Longer Active Bertrand Patel DO Active AZITHROMYCIN 500 MG INTRAVENOUS SOLUTION RECONSTITUTED 1 po q da y AZITHROMYCIN 78630755674 No Longer Active Bertrand Patel DO A ctive CYMBALTA 30 MG ORAL CAPSULE DELAYED RELEASE PARTICLES 1 cap by mouth daily DULOXETINE HCL 02550365199 No Longer Active Bertrand marquez DO Active CYMBALTA 60 MG ORAL CAPSULE DELAYED RELEASE PARTICLES 1 cap by mouth daily DULOXETINE HCL 00272739727 Active Adriana Davalos RN Active WELLBUTRIN 75 MG ORAL TABLET 2 times daily BUPR OPION HCL 96532531076 No Longer Active Bertrand Patel DO Active PROAIR HFA 108 (90 Base) MCG/ACT INHALATION AEROSOL SO LUTION take one to two puffs po Q4-6 hour prn cough and shortness of breath ALBUTEROL SULFATE 25537396368 Active Bertrand Patel DO Active AZITHROMYCIN 250 MG ORAL TABLET take 2 po today then take 1 po days 2-5 AZITHROMYCIN 46079452170 No Longer Active Adolfo OSORIO Active PERMETHRIN 5 % EXTERNAL CREAM apply neck to toes tonig ht and then rinse off in morning. repeat at 7 days PERMETHRIN 19825881278 No Longer Active Adolfo OSORIO Active AMOXICILLIN 500 MG ORAL CAPSULE 2 po BID x 10 days 201 07/15/00 AMOXICILLIN 85492758794 No Longer Active Yoli Mercado MD PhD Acti ve INSUPEN ULTRAFIN 31G X 6 MM USE DIRECTED INSULIN PEN NEEDLE 57441651873 No Longer Active Bertrand Patel DO Active TRANSDERM-SCOP (1.5 MG) 1 MG/3DAYS TRANSDERMAL PATCH 7 2 HOUR 1 patch applied behind ear q 3 day SCOPOLAMINE BASE 36842041818 No Lo nger Active Bertrand Patel DO Active MACRODANTIN 100 MG ORAL CAPSULE one p.o. b.i.d. x2 weeks NITROFURANTOIN MACROCRYSTAL 42641408786 No Longer Active Bertrand Patel DO Active MACRODANTIN 100 MG ORAL CAPSULE one p.o. b.i.d. x2 weeks MACRODANTIN 100 MG ORAL CAPSULE 6698782 NITROFURANTOIN MACROCRYSTAL Inactive TRANSDERM-SCOP (1.5 MG) 1 [...] days PERMETHRIN 5 % EXTER NAL CREAM 556926 PERMETHRIN Inactive WELLBUTRIN 75 MG ORAL TABLET 2 times daily WELLBUTRIN 75 MG ORAL TABLET BUPROPION HCL Inactive CYMBALTA 30 MG ORAL CAPSULE DELAYED RELEASE PARTICLES 1 cap by mouth daily CYMBALTA 30 MG ORAL CAPSULE DELAYED RELE ASE PARTICLES 706344 DULOXETINE HCL Inactive AZITHROMYCIN 500 MG INTRAVENOUS SOLUTION RECONSTITUTED 1 po q da y AZITHROMYCIN 500 MG INTRAVENOUS SOLUTION RECONSTITUTED 83014 268530 AZITHROMYCIN Inactive CINNAMON ALPHA LIPOIC AC CMPLX CAPSULE by mouth twice a day in AM by mouth twice a day in PM CINNAMON ALPHA LIPOIC AC CMPLX CAPSULE ALPHA LIPOIC [id number] CAPS Inactive MICARDIS HCT 80-12.5 MG ORAL TABLET 1 qd 07/30 MICARDIS HCT 80-12.5 MG ORAL TABLET 039133 TELMISARTAN-HCTZ Inactive PRAVASTATIN SODIUM 20 MG ORAL TABLET 1 tablet by mouth daily at bedtime PRAVASTATIN SODIUM 20 MG ORAL TABLET 788987 PRAVASTATIN SODIUM Inactive FUROSEMIDE 20 MG ORAL TABLET 1 pill by mouth daily if needed for edema FUROSEMIDE 20 MG ORAL TABLET 904173 FUROSEMIDE Inactive METFORMIN HCL 500 MG ORAL TABLET 1 bid METFORMIN HCL 500 MG ORAL TABLET 102756 METFORMIN HCL Inactive B-12 1000 MCG ORAL CAPSULE 1 tab daily B -12 1000 MCG ORAL CAPSULE CYANOCOBALAMIN Inactive VITAMIN E 200 UNIT ORAL CAPSULE 1 cap po qd 1 VITAMIN E 200 UNIT ORAL CAPSULE 6276979 VITAMIN E Inactive [facility] MELATONIN 5-10 MG [...] po daily AZITHROMYCIN 250 MG ORAL TABLET 057829 AZITHROMY BERNARDO Inactive SYMBICORT 160-4.5 MCG/ACT INHALATION AEROSOL 2 puffs BID 9 SYMBICORT 160-4.5 MCG/ACT INHALATION AEROSOL 2438365 BUDESONID E-FORMOTEROL FUMARATE Inactive ALBUTEROL SULFATE (2.5 MG/3ML) 0.083% INHALATION NEBUL IZATION SOLUTION one vial per nebulizer every 4-6 hours as needed ALBUTEROL SULFATE (2.5 MG/3ML) 0.083% INHALATION NEBULIZATION SOLUTION 566467 ALBUTER OL SULFATE Inactive NEBULIZER use as directed NEBULIZER NEBULI ZERS Inactive TESSALON PERLES 100 MG ORAL CAPSULE 1 tablet by mouth 3 times da juan pablo TESSALON PERLES 100 MG ORAL CAPSULE 228865 BENZONATATE Inactive CYCLOBENZAPRINE HCL 10 MG ORAL TABLET Take 1 tab TID PRN for mus triston pain CYCLOBENZAPRINE HCL 10 MG ORAL TABLET 855440 CYCLOBENZA ANUJA HCL Inactive AUGMENTIN 875-125 MG ORAL TABLET 1 po BID x 10 days 20 18/04/06 AUGMENTIN 875-125 MG ORAL TABLET AMOXICILLIN-POT CLAVULANATE Inactive BACTROBAN 2 % EXTERNAL CREAM Apply to affected area BID for up to 10 days BACTROBAN 2 % EXTERNAL CREAM MUPIROCIN CA LCIUM Inactive VITAMIN D3 86813 UNIT ORAL CAPSULE 1 pill Week x 4 mo nths for vitamin D deficiency/osteoporosis VITAMIN D3 24754 UNIT ORAL CAPSULE CHOLECALCIFEROL Inactive BENZONATATE 200 MG ORAL CAPSULE 1 three times a day as neede d for cough BENZONATATE 200 MG ORAL CAPSULE 181531 BENZONATA TE Inactive ZITHROMAX Z-MARTIN 250 MG ORAL TABLET 2 today and then 1 daily for 4 days ZITHROMAX Z-MARTIN 250 MG ORAL TABLET 363119 AZITHR OMYCIN Inactive ADDERALL 10 MG ORAL TABLET 1 tab twice daily 2 ADDERALL 10 MG ORAL TABLET 465549 AMPHETAMINE-DEXTROAMPHETAMINE Inactive LEVAQUIN 500 MG ORAL TABLET 1 tablet by mouth daily 20 21/06/28 LEVAQUIN 500 MG ORAL TABLET 606061 LEVOFLOXACIN Inactive AMOXICILLIN 500 MG ORAL CAPSULE 2 po BID x 10 days 201 07/15/00 AMOXICILLIN 500 MG ORAL CAPSULE 172201 AMOXICILLIN Inactive AZITHROMYCIN 250 MG ORAL TABLET take 2 po today then take 1 po days 2-5 AZITHROMYCIN 250 MG ORAL TABLET 243364 AZITHROMY BERNARDO Inactive LEVAQUIN 500 MG ORAL TABLET 1 pill by mouth daily 2013 LEVAQUIN 500 MG ORAL TABLET 323849 LEVOFLOXACIN Inactive AUGMENTIN 875-125 MG ORAL TABLET [...] days 08/02 PREDNISONE 20 MG ORAL TABLET 730353 PREDNISONE Inactive CIPRO 500 MG ORAL TABLET 1 tablet by mouth twice daily CIPRO 500 MG ORAL TABLET 199661 CIPROFLOXACIN HCL Inactive DOXYCYCLINE HYCLATE 100 MG ORAL CAPSULE 1 cap by mouth twice jong ly DOXYCYCLINE HYCLATE 100 MG ORAL CAPSULE 6368464 DOXYCYCL INE HYCLATE Inactive PREDNISONE 20 MG ORAL TABLET Take 3 tabs for 3 days, t hen 2 tabs for 3 days, then 1 tab for 3 days PREDNISONE 20 MG ORAL TABLET 312 615 PREDNISONE Inactive CHERATUSSIN AC 100-10 MG/5ML ORAL SYRUP 5ml po q6hr PRN Cough 20 21/03/15 CHERATUSSIN AC 100-10 MG/5ML ORAL SYRUP 756805 GUAIFENE SIN-CODEINE Inactive Vital Signs Date Name [...] [id number] Lab Report: Comp. Metabolic Panel, Uday caraballo [facility] - Chemistry sodium, serum 140 mmol/L 522-372 4552/03/25 carbon dioxide, venous blood 33.2 mmol/L 21.0-32 [...] Lab Report: Comp. Metabolic Panel, Lipas e [facility] - Lab Alkaline phosphatase 91 [...] negative Strep Screen Lot Number (CLIA Waived) [id number] Strep Screen Exp Date (CLIA Waived) 05/02/2020 Encounters Code Encounter Date Provider Facility CPT-87491 [id number] Vst-Est Level III 16:58:04 CDT Me nae Vazquez APRN [facility] CPT-76298 [id number] Vst-Est Level IV 14:46:36 COMPRESSOR REPAIRER Foster Patel [facility] CPT-36166 Level 3 Est. Patient 12:37:30 COMPRESSOR REPAIRER Galilea Se [facility] CPT-67011 Level 3 Est. Patient 11:40:23 CDT Bertrand marquez [facility] CPT-84386 Level 4 Est. Patient 15:33:35 COMPRESSOR REPAIRER Bertrand marquez [facility] CPT-78951 Level 4 Est. Patient 12:31:54 CDT Bertrand mraquez [facility] CPT-07782 Level 3 Est. Patient 11:27:00 COMPRESSOR REPAIRER Ike Deluna MD -59005 Level 3 Est. Patient 08:50:57 COMPRESSOR REPAIRER Silvia Are ll [facility] CPT-02418 Level 3 Est. Patient 10:04:13 CDT Bertrand marquez [facility] CPT-07087 Level 4 Est. Patient 16:02:10 COMPRESSOR REPAIRER Silvia Are ll [facility] CPT-46523 Level 3 Est. Patient 13:04:54 COMPRESSOR REPAIRER Silvia Are ll [facility] CPT-87666 Level 3 Est. Patient 12:56:37 CDT Bertrand marquez [facility] CPT-70960 Level 3 Est. Patient 19:12:03 CDT Yoli tolbert MD PhD [facility] CPT-34413 Level 3 Est. Patient 14:36:01 CDT Yoli tolbert MD PhD [facility] CPT-75566 Level 2 Est. Patient 08:00:22 CDT Jcarlos dc MD -59812 Level 3 Est. Patient 19:06:55 CDT Bertrand marquez [facility] CPT-77383 Level 3 Est. Patient 10:08:23 COMPRESSOR REPAIRER Bertrand marquez [facility] CPT-64138 Level 3 Est. Patient 16:37:54 COMPRESSOR REPAIRER Bertrand marquez [facility] CPT-55450 Level 3 Est. Patient 11:31:59 COMPRESSOR REPAIRER Bertrand marquez [facility] CPT-95706 Level 3 Est. Patient 10:20:08 CDT Gennadot Porfirioridge villasenor [facility] CPT-94867 Level 3 Est. Patient 13:45:20 CDT Sanket Garciakelvin buckley [facility] CPT-56403 Level 3 Est. Patient 12:51:06 CDT Adolfo villasenor [facility] CPT-46177 Level 3 Est. Patient 11:22:51 COMPRESSOR REPAIRER Yoli tolbert MD PhD [facility]-23008 Level 3 Est. Patient 13:33:19 CDT Bertrand marquez [facility] Procedures Code Procedure Name Date Entry Date Standard Desc ription CPT-61355 Sono abd valle iinc RUQ LUQ ascites search or pylorus - XRAY USE ONLY 09:11:06 CDT CPT-59286 Venipuncture Draw Fee 16:30:28 CDT [id number] ([id number]) Influenza immunization administe red or previously received 15:55:57 CDT CPT-90416 Wound Culture - LAB USE ONLY 15:45:25 CDT 2 CPT-74861 Venipuncture Draw Fee 10:23:01 CDT CPT-J0696 Rocephin 1000 mg (Ceftriaxone) 16:20:30 COMPRESSOR REPAIRER CPT-66409 Abx/Therapy Injection 16:20:29 COMPRESSOR REPAIRER CPT-J0696 Rocephin 1gm Inj Solr 15:51:59 COMPRESSOR REPAIRER CPT-34990 Chest 2V Frontal and Lat 15:20:28 COMPRESSOR REPAIRER 07/22 CPT-39516 Breathing Tx 14:51:55 COMPRESSOR REPAIRER CPT-58138 Breathing Tx 09:57:16 COMPRESSOR REPAIRER CPT-14405 Knee comp 4/> V 11:58:06 COMPRESSOR REPAIRER
--- OUTSIDE RECORDS SUMMARY | 2019-11-13 09:46 | XMS REPORT | Clinical Summary ---
Author Author Admin, Enrique Adamson Organization [employer] Address Unknown Phone Unavailable Allergies, Adverse Reactions, [...] Index 50.0-59.9, adult Wellness exam V70.0 Active Betrrand Patel DO Routine general medical examination at a health care facility URI - viral 465.9 Resolved Lina Maher APPOINTMENT MANAGER-C Acute upper respiratory infections of unspecified site Pharyngitis acute 462 Resolved Lina Maher APPOINTMENT MANAGER -C Acute pharyngitis Abdominal pain, upper 789.09 Active Lina Maher A PRN-C Abdominal pain, other specified site; multiple sites Flank pain, left 789.09 Active Lina Maher APPOINTMENT MANAGER-C Abdominal pain, other specified site; multiple sites Morbid obesity due to excess calories 278.00 Resolved Lina Maher APPOINTMENT MANAGER-C Obesity, unspecified Other abnormal findings in urine Active 202 Lina Maher APPOINTMENT MANAGER-C Generalized colicky abdominal pain 789.07 Active [...] 09/09/28 EDEMA LEG ICD-782.3 Inactive Adele Feldman [facility] 201 01/01/02 SHORTNESS OF BREATH ICD-786.05 Inactive Yoli Mercado MD PhD RIB PAIN, RIGHT SIDED ICD-786.50 Inactive Yoli Mercado MD PhD KNEE PAIN, RIGHT ICD-719.46 Inactive Adele chiu [facility] Knee pain, left ICD-719.46 Inactive Adele damico [facility] Pharyngitis-Acute ICD-462 Inactive Bertrand Redmond DO Polyuria ICD-788.42 Inactive Yoli Mercado MD P hD Cellulitis, leg, right ICD-682.6 Inactive Yuki Deluna MD Foreign body, ear ICD-931 Inactive Yoli salazar MD PhD Fatigue ICD-780.79 Inactive Ike Deluna MD 201 12/01/06 Headache ICD-784.0 Inactive Adele Feldman LPN 2017 Cough ICD-786.2 Inactive Adele Feldman [employer] MANAGER 06/04 SINUSITIS, ACUTE ICD-461.9 Inactive Ike lange MD Fatigue ICD-780.79 Inactive Adele Feldman [employer] SERVICES MANAGER 2017 Bronchitis acute with bronchospasm ICD-466.0 I nactive Bertrand Patel DO Animal bite ICD-919.8 Inactive Adele Feldman LP N Mycoplasma infection ICD-041.81 Inactive Anit a Feldman [employer] SERVICES MANAGER Amenorrhea, secondary ICD-626.0 Inactive Ani ta Feldman [employer] SERVICES MANAGER Left maxillary sinusitis ICD-473.0 Inactive Bertrand Patel DO URI - viral ICD-465.9 Inactive Lina Maher APPOINTMENT MANAGER -C Pharyngitis acute ICD-462 Inactive Lina elliott APPOINTMENT MANAGER-C Morbid obesity due to excess calories ICD-278.00 Inactive Carla ALBERTO Medication List Medication Instructions Start Date Stop Date Generic Name NDC Status Provider Patient Instruction CYCLOBENZAPRINE HCL 10 MG ORAL TABLET 1 tablet by mout h three times a day as needed for muscle spasm CYCLOBENZAPRINE HCL 86122116904 Ac tive Lina Maher APRN-C Active HYDROCODONE-ACETAMINOPHEN 7.5-325 MG TABS 1 TAB EVERY 6 HOUR S PRN FOR PAIN HYDROCODONE-ACETAMINOPHEN 88637924856 Active Bertrand Patel DO Active TELMISARTAN 80 MG TABS 1 TABLET PO DAILY FOR BLOOD PRESSURE TELMISARTAN 67729351262 Active Adriana Davalos RN Active MODAFINIL 200 MG TABS 1/2 TABLET PO IN THE AM AND 1/2 TABLET AT NOON MODAFINIL 06362172011 Active Adriana Davalos RN Activ e DULOXETINE HCL 60 MG CPEP 1 CAPSULE PO DAILY DU LOXETINE HCL 50875907887 Active Adriana Davalos RN Active AMLODIPINE 5MG 1 TABLET PO DAILY FOR BLOOD PRESSURE AMLODIPINE BESYLATE 18217595133 Active Adriana Davalos RN Active ALPRAZOLAM 0.5 MG TABS TAKE 1 TABLET BY MOUTH THREE TIMES DAILY 201 02/10/05 ALPRAZOLAM 15452877425 Active Adriana Davalos RN Active SUDAFED 12 HOUR 120 MG ORAL TABLET EXTENDED RELEASE 12 HOUR 1 pill twice daily if for congestion PSEUDOEPHEDRINE HCL 16974582142 Active Silvia Vazquez APRN Active CHERATUSSIN AC 100-10 MG/5ML ORAL SYRUP 5ml po q6hr PRN Cough 20 21/03/15 GUAIFENESIN-CODEINE 44666894378 No Longer Active Silvia Vazquez APRN Active FLUTICASONE PROPIONATE 50 MCG/ACT NASAL SUSPENSION 2 s prays per nostril daily for 2 weeks, then 1 spray each nostril PRN FLUTI CASONE PROPIONATE 56583165439 Active Silvia Vazquez APRN Active EVENING PRIMROSE OIL 1000 MG ORAL CAPSULE 1 capsule once daily EVENING PRIMROSE OIL 47997195958 Active Bertrand Patel DO Active LEVAQUIN 500 MG ORAL TABLET 1 tablet by mouth daily 20 21/06/28 LEVOFLOXACIN 24881245191 No Longer Active Bertrand Patel DO Active PREDNISONE 20 MG ORAL TABLET Take 3 tabs for 3 days, t hen 2 tabs for 3 days, then 1 tab for 3 days PREDNISONE 13179512135 No Rainer fatou Active Galilea Sell APPOINTMENT MANAGER Active DOXYCYCLINE HYCLATE 100 MG ORAL CAPSULE 1 cap by mouth twice jong ly DOXYCYCLINE HYCLATE 57075829648 No Longer Active Galilea Sell APPOINTMENT MANAGER Active ADDERALL 10 MG ORAL TABLET 1 tab twice daily 2 AMPHETAMINE-DEXTROAMPHETAMINE 08683132834 No Longer Active Nitza Phi llips Scribe Active ZITHROMAX Z-MARTIN 250 MG ORAL TABLET 2 today and then 1 daily for 4 days AZITHROMYCIN 17952149991 No Longer Active Nitza Brewer lips Scribe Active BENZONATATE 200 MG ORAL CAPSULE 1 three times a day as neede d for cough BENZONATATE 83823108898 No Longer Active Nitzalida Brewer lips Scribe Active VITAMIN D3 24679 UNIT ORAL CAPSULE 1 pill Week x 4 mo nths for vitamin D deficiency/osteoporosis CHOLECALCIFEROL 79686368960 N o Longer Active Layla Garcia Active BACTROBAN 2 % EXTERNAL CREAM Apply to affected area BID for up to 10 days MUPIROCIN CALCIUM 58339111633 No Longer Active Ike Deluna MD Active CIPRO 500 MG ORAL TABLET 1 tablet by mouth twice daily CIPROFLOXACIN HCL 30864436344 No Longer Active Adriana Bender LPN Active AUGMENTIN 875-125 MG ORAL TABLET 1 po BID x 10 days 18/04/06 AMOXICILLIN-POT CLAVULANATE 41251678446 No Longer Active Adriana Bender LPN Active CYCLOBENZAPRINE HCL 10 MG ORAL TABLET Take 1 tab TID PRN for mus triston pain CYCLOBENZAPRINE HCL 03040855459 No Longer Active Bertrand Patel DO Active TESSALON PERLES 100 MG ORAL CAPSULE 1 tablet by mouth 3 times da juan pablo BENZONATATE 24193974226 No Longer Active Bertrand Patel DO Ac tive NEBULIZER use as directed NEBULIZERS 54630310788 No Longer Active Bertrand Patel DO Active ALBUTEROL SULFATE (2.5 MG/3ML) 0.083% INHALATION NEBUL IZATION SOLUTION one vial per nebulizer every 4-6 hours as needed ALBUTERO L SULFATE 02927810861 No Longer Active Bertrand Patel DO Active SYMBICORT 160-4.5 MCG/ACT INHALATION AEROSOL 2 puffs BID 9 BUDESONIDE-FORMOTEROL FUMARATE 18246728400 No Longer Active Bertrand W Jorge DO Active PREDNISONE 20 MG ORAL TABLET take 3 tabs daily for 3 d ays, 2 tabs daily for 3 days, 1 tab daily for 3 days, 1/2 tab daily for 3 days 08/02 PREDNISONE 63788520002 No Longer Active Silvia Taylor APPOINTMENT MANAGER Active AZITHROMYCIN 250 MG ORAL TABLET Take 2 tabs po today then 1 tab po daily AZITHROMYCIN 97070443845 No Longer Active Silvia Arell APPOINTMENT MANAGER Active AUGMENTIN 875-125 MG ORAL TABLET 1 po BID x 10 days 20 19/07/13 AMOXICILLIN-POT CLAVULANATE 29705084234 No Longer Active Adriana Bender, [employer] MANAGER Active CHEWABLE CALCIUM 500-200-40 MG-UNT-MCG ORAL TABLET CHEWABLE 1 chew tab bid CALCIUM-VITAMIN D-VITAMIN K 97947667352 Active Silvia Are ll APPOINTMENT MANAGER Active EQ COMPLETE MULTIVIT ADULT 50+ ORAL TABLET 1 tab po bid MULTIPLE VITAMINS-MINERALS 72450088887 Active Silvia Faisalll APPOINTMENT MANAGER Active LORTAB 7.5-500 MG ORAL TABLET take one po Q6 hours 201 09/12/01 HYDROCODONE-ACETAMINOPHEN 49643811559 No Longer Active Nirmal Robbins RN Active [facility] MELATONIN 5-10 MG ORAL TABLET EXTENDED RELEASE Jair e one by mouth daily at bedtime MELATONIN-PYRIDOXINE 15191500847 No Longer Acti ve Bertrand Patel DO Active VITAMIN E 200 UNIT ORAL CAPSULE 1 cap po qd VITAM IN E 32828767964 No Longer Active Bertrand Patel DO Active B-12 1000 MCG ORAL CAPSULE 1 tab daily CYANOCOB ALAMIN 69829874498 No Longer Active Bertrand Patel DO Active METFORMIN HCL 500 MG ORAL TABLET 1 bid METFOR MIN HCL 32059771616 No Longer Active Bertrand Patel DO Active FUROSEMIDE 20 MG ORAL TABLET 1 pill by mouth daily if needed for edema FUROSEMIDE 20632616428 No Longer Active Bertrand Patel DO Active PRAVASTATIN SODIUM 20 MG ORAL TABLET 1 tablet by mouth daily at bedtime PRAVASTATIN SODIUM 10477557791 No Longer Active Bertrand Patel DO Active AUGMENTIN 875-125 MG ORAL TABLET 1 pill by mouth twice daily 201 09/10/00 AMOXICILLIN-POT CLAVULANATE 57455705766 No Longer Active Yoli Mercado MD PhD Active LEVAQUIN 500 MG ORAL TABLET 1 pill by mouth daily 2013 LEVOFLOXACIN 82557663093 No Longer Active Yoli Mercado MD PhD Acti ve MICARDIS 80 MG ORAL TABLET 1 tablet daily for blood pressure 07/30 TELMISARTAN 10820770070 Active Adriana Davalos RN Active MICARDIS HCT 80-12.5 MG ORAL TABLET 1 qd TELMISARTAN-HCTZ 59225366328 No Longer Active Bertrand Patel DO Active CINNAMON ALPHA LIPOIC AC CMPLX CAPSULE by mouth twice a day in AM by mouth twice a day in PM ALPHA LIPOIC IRLO-KJ-DYVOGALT CA PS 81797968472 No Longer Active Bertrand Patel DO Active AZITHROMYCIN 500 MG INTRAVENOUS SOLUTION RECONSTITUTED 1 po q da y AZITHROMYCIN 18655237251 No Longer Active Bertrand Patel DO A ctive CYMBALTA 30 MG ORAL CAPSULE DELAYED RELEASE PARTICLES 1 cap by mouth daily DULOXETINE HCL 38762414125 No Longer Active Bertrand marquez DO Active CYMBALTA 60 MG ORAL CAPSULE DELAYED RELEASE PARTICLES 1 cap by mouth daily DULOXETINE HCL 98381589321 Active Adriana Davalos RN Active WELLBUTRIN 75 MG ORAL TABLET 2 times daily BUPR OPION HCL 15261402591 No Longer Active Bertrand Patel DO Active PROAIR HFA 108 (90 Base) MCG/ACT INHALATION AEROSOL SO LUTION take one to two puffs po Q4-6 hour prn cough and shortness of breath ALBUTEROL SULFATE 14262982138 Active Bertrand Patel DO Active AZITHROMYCIN 250 MG ORAL TABLET take 2 po today then take 1 po days 2-5 AZITHROMYCIN 61348724112 No Longer Active Adolfo OSORIO Active PERMETHRIN 5 % EXTERNAL CREAM apply neck to toes tonig ht and then rinse off in morning. repeat at 7 days PERMETHRIN 64863520750 No Longer Active Adolfo OSORIO Active AMOXICILLIN 500 MG ORAL CAPSULE 2 po BID x 10 days 201 07/15/00 AMOXICILLIN 63602510728 No Longer Active Yoli Mercado MD PhD Acti ve INSUPEN ULTRAFIN 31G X 6 MM USE DIRECTED INSULIN PEN NEEDLE 63153612010 No Longer Active Bertrand Patel DO Active TRANSDERM-SCOP (1.5 MG) 1 MG/3DAYS TRANSDERMAL PATCH 7 2 HOUR 1 patch applied behind ear q 3 day SCOPOLAMINE BASE 49523542702 No Lo nger Active Bertrand Patel DO Active MACRODANTIN 100 MG ORAL CAPSULE one p.o. b.i.d. x2 weeks NITROFURANTOIN MACROCRYSTAL 01699069381 No Longer Active Bertrand Patel DO Active MACRODANTIN 100 MG ORAL CAPSULE one p.o. b.i.d. x2 weeks MACRODANTIN 100 MG ORAL CAPSULE 9329331 NITROFURANTOIN MACROCRYSTAL Inactive TRANSDERM-SCOP (1.5 MG) 1 [...] days PERMETHRIN 5 % EXTER NAL CREAM 970595 PERMETHRIN Inactive WELLBUTRIN 75 MG ORAL TABLET 2 times daily WELLBUTRIN 75 MG ORAL TABLET BUPROPION HCL Inactive CYMBALTA 30 MG ORAL CAPSULE DELAYED RELEASE PARTICLES 1 cap by mouth daily CYMBALTA 30 MG ORAL CAPSULE DELAYED RELE ASE PARTICLES 004049 DULOXETINE HCL Inactive AZITHROMYCIN 500 MG INTRAVENOUS SOLUTION RECONSTITUTED 1 po q da y AZITHROMYCIN 500 MG INTRAVENOUS SOLUTION RECONSTITUTED 97410 849638 AZITHROMYCIN Inactive CINNAMON ALPHA LIPOIC AC CMPLX CAPSULE by mouth twice a day in AM by mouth twice a day in PM CINNAMON ALPHA LIPOIC AC CMPLX CAPSULE ALPHA LIPOIC [id number] CAPS Inactive MICARDIS HCT 80-12.5 MG ORAL TABLET 1 qd 07/30 MICARDIS HCT 80-12.5 MG ORAL TABLET 081869 TELMISARTAN-HCTZ Inactive PRAVASTATIN SODIUM 20 MG ORAL TABLET 1 tablet by mouth daily at bedtime PRAVASTATIN SODIUM 20 MG ORAL TABLET 595519 PRAVASTATIN SODIUM Inactive FUROSEMIDE 20 MG ORAL TABLET 1 pill by mouth daily if needed for edema FUROSEMIDE 20 MG ORAL TABLET 876804 FUROSEMIDE Inactive METFORMIN HCL 500 MG ORAL TABLET 1 bid METFORMIN HCL 500 MG ORAL TABLET 029637 METFORMIN HCL Inactive B-12 1000 MCG ORAL CAPSULE 1 tab daily B -12 1000 MCG ORAL CAPSULE CYANOCOBALAMIN Inactive VITAMIN E 200 UNIT ORAL CAPSULE 1 cap po qd 1 VITAMIN E 200 UNIT ORAL CAPSULE 8513330 VITAMIN E Inactive [facility] MELATONIN 5-10 MG [...] po daily AZITHROMYCIN 250 MG ORAL TABLET 308644 AZITHROMY BERNARDO Inactive SYMBICORT 160-4.5 MCG/ACT INHALATION AEROSOL 2 puffs BID 9 SYMBICORT 160-4.5 MCG/ACT INHALATION AEROSOL 2154379 BUDESONID E-FORMOTEROL FUMARATE Inactive ALBUTEROL SULFATE (2.5 MG/3ML) 0.083% INHALATION NEBUL IZATION SOLUTION one vial per nebulizer every 4-6 hours as needed ALBUTEROL SULFATE (2.5 MG/3ML) 0.083% INHALATION NEBULIZATION SOLUTION 594648 ALBUTER OL SULFATE Inactive NEBULIZER use as directed NEBULIZER NEBULI ZERS Inactive TESSALON PERLES 100 MG ORAL CAPSULE 1 tablet by mouth 3 times da juan pablo TESSALON PERLES 100 MG ORAL CAPSULE 361335 BENZONATATE Inactive CYCLOBENZAPRINE HCL 10 MG ORAL TABLET Take 1 tab TID PRN for mus triston pain CYCLOBENZAPRINE HCL 10 MG ORAL TABLET 224994 CYCLOBENZA ANUJA HCL Inactive AUGMENTIN 875-125 MG ORAL TABLET 1 po BID x 10 days 20 18/04/06 AUGMENTIN 875-125 MG ORAL TABLET AMOXICILLIN-POT CLAVULANATE Inactive BACTROBAN 2 % EXTERNAL CREAM Apply to affected area BID for up to 10 days BACTROBAN 2 % EXTERNAL CREAM MUPIROCIN CA LCIUM Inactive VITAMIN D3 36593 UNIT ORAL CAPSULE 1 pill Week x 4 mo nths for vitamin D deficiency/osteoporosis VITAMIN D3 49209 UNIT ORAL CAPSULE CHOLECALCIFEROL Inactive BENZONATATE 200 MG ORAL CAPSULE 1 three times a day as neede d for cough BENZONATATE 200 MG ORAL CAPSULE 466052 BENZONATA TE Inactive ZITHROMAX Z-MARTIN 250 MG ORAL TABLET 2 today and then 1 daily for 4 days ZITHROMAX Z-MARTIN 250 MG ORAL TABLET 960692 AZITHR OMYCIN Inactive ADDERALL 10 MG ORAL TABLET 1 tab twice daily 2 ADDERALL 10 MG ORAL TABLET 582782 AMPHETAMINE-DEXTROAMPHETAMINE Inactive LEVAQUIN 500 MG ORAL TABLET 1 tablet by mouth daily 20 21/06/28 LEVAQUIN 500 MG ORAL TABLET 785628 LEVOFLOXACIN Inactive AMOXICILLIN 500 MG ORAL CAPSULE 2 po BID x 10 days 201 07/15/00 AMOXICILLIN 500 MG ORAL CAPSULE 351179 AMOXICILLIN Inactive AZITHROMYCIN 250 MG ORAL TABLET take 2 po today then take 1 po days 2-5 AZITHROMYCIN 250 MG ORAL TABLET 277635 AZITHROMY BERNARDO Inactive LEVAQUIN 500 MG ORAL TABLET 1 pill by mouth daily 2013 LEVAQUIN 500 MG ORAL TABLET 272579 LEVOFLOXACIN Inactive AUGMENTIN 875-125 MG ORAL TABLET [...] days 08/02 PREDNISONE 20 MG ORAL TABLET 773180 PREDNISONE Inactive CIPRO 500 MG ORAL TABLET 1 tablet by mouth twice daily CIPRO 500 MG ORAL TABLET 889570 CIPROFLOXACIN HCL Inactive DOXYCYCLINE HYCLATE 100 MG ORAL CAPSULE 1 cap by mouth twice jong ly DOXYCYCLINE HYCLATE 100 MG ORAL CAPSULE 8804395 DOXYCYCL INE HYCLATE Inactive PREDNISONE 20 MG ORAL TABLET Take 3 tabs for 3 days, t hen 2 tabs for 3 days, then 1 tab for 3 days PREDNISONE 20 MG ORAL TABLET 312 615 PREDNISONE Inactive CHERATUSSIN AC 100-10 MG/5ML ORAL SYRUP 5ml po q6hr PRN Cough 20 21/03/15 CHERATUSSIN AC 100-10 MG/5ML ORAL SYRUP 357602 GUAIFENE SIN-CODEINE Inactive Vital Signs Date Name [...] Lab Report: Comp. Metabolic Panel, Uday caraballo [facility] - Chemistry sodium, serum 140 mmol/L 600-529 2527/03/25 carbon dioxide, venous blood 33.2 mmol/L 21.0-32 [...] Lab Report: Comp. Metabolic Panel, Lipas e [facility] - Lab Alkaline phosphatase 91 [...] negative Strep Screen Lot Number (CLIA Waived) [id number] Strep Screen Exp Date (CLIA Waived) 05/02/2020 Encounters Code Encounter Date Provider Facility CPT-60319 [id number] Vst-Est Level III 16:58:04 CDT Me nae Vazquez APRN [facility] CPT-48549 [id number] Vst-Est Level IV 14:46:36 AUDITOR SUPERVISOR Foster Patel [facility] CPT-06663 Level 3 Est. Patient 12:37:30 AUDITOR SUPERVISOR Galilea Se [facility]-22101 Level 3 Est. Patient 11:40:23 CDT Bertrand marquez [facility] CPT-93358 Level 4 Est. Patient 15:33:35 AUDITOR SUPERVISOR Bertrand marquez [facility] CPT-75526 Level 4 Est. Patient 12:31:54 CDT Bertrand marquez [facility] CPT-12042 Level 3 Est. Patient 11:27:00 AUDITOR SUPERVISOR Ike Deluna MD [facility]-61474 Level 3 Est. Patient 08:50:57 AUDITOR SUPERVISOR Silvia Are ll [facility]-18011 Level 3 Est. Patient 10:04:13 CDT Bertrand marquez [facility] CPT-44626 Level 4 Est. Patient 16:02:10 AUDITOR SUPERVISOR Silvia Are ll [facility] CPT-16428 Level 3 Est. Patient 13:04:54 AUDITOR SUPERVISOR Silvia Are [facility] CPT-61426 Level 3 Est. Patient 12:56:37 CDT Bertrand [facility]quez [facility] CPT-50647 Level 3 Est. Patient 19:12:03 CDT Yoli tolbert MD PhD [facility]-25410 Level 3 Est. Patient 14:36:01 CDT Yoli tolbert MD PhD [facility] CPT-64464 Level 2 Est. Patient 08:00:22 CDT Jcarlos dc MD [facility]-06293 Level 3 Est. Patient 19:06:55 CDT Bertrand marquez [facility] CPT-86830 Level 3 Est. Patient 10:08:23 AUDITOR SUPERVISOR Bertrand marquez [facility]-61404 Level 3 Est. Patient 16:37:54 AUDITOR SUPERVISOR Bertrand marquez [facility] CPT-88396 Level 3 Est. Patient 11:31:59 AUDITOR SUPERVISOR Bertrand marquez [facility] CPT-15164 Level 3 Est. Patient 10:20:08 CDT Gennadot villasenor [facility] CPT-74071 Level 3 Est. Patient 13:45:20 CDT Sanket Pham ina [facility] CPT-57994 Level 3 Est. Patient 12:51:06 CDT Adolfo villasenor [facility] CPT-60272 Level 3 Est. Patient 11:22:51 AUDITOR SUPERVISOR Yoli tolbert MD PhD [facility] CPT-10297 Level 3 Est. Patient 13:33:19 CDT Bertrand marquez [facility] Procedures Code Procedure Name Date Entry Date Standard Desc ription CPT-70119 Sono abd valle iinc RUQ LUQ ascites search or pylorus - XRAY USE ONLY 09:11:06 CDT CPT-10776 Venipuncture Draw Fee 16:30:28 CDT [id number]-[id number] ([id number]) Influenza immunization administe red or previously received 15:55:57 CDT CPT-72451 Wound Culture - LAB USE ONLY 15:45:25 CDT 2 CPT-10946 Venipuncture Draw Fee 10:23:01 CDT CPT-J0696 Rocephin 1000 mg (Ceftriaxone) 16:20:30 AUDITOR SUPERVISOR CPT-10068 Abx/Therapy Injection 16:20:29 AUDITOR SUPERVISOR CPT-J0696 Rocephin 1gm Inj Solr 15:51:59 AUDITOR SUPERVISOR CPT-18759 Chest 2V Frontal and Lat 15:20:28 AUDITOR SUPERVISOR 07/22 CPT-10320 Breathing Tx 14:51:55 AUDITOR SUPERVISOR CPT-60121 Breathing Tx 09:57:16 AUDITOR SUPERVISOR CPT-95355 Knee comp 4/> V 11:58:06 AUDITOR SUPERVISOR
--- OUTSIDE RECORDS SUMMARY | 2019-11-13 09:46 | XMS REPORT | Clinical Summary ---
Author Author Admin, Enrique Adamson Organization [employer] Address Unknown Phone Unavailable Allergies, Adverse Reactions, [...] Index 50.0-59.9, adult Wellness exam V70.0 Active Bertradn Patel DO Routine general medical examination at a health care facility URI - viral 465.9 Resolved Lina Maher CRAFT SUPERINTENDENT-C Acute upper respiratory infections of unspecified site Pharyngitis acute 462 Resolved Lina Maher CRAFT SUPERINTENDENT -C Acute pharyngitis Abdominal pain, upper 789.09 Active Lina Maher A PRN-C Abdominal pain, other specified site; multiple sites Flank pain, left 789.09 Active Lina Maher CRAFT SUPERINTENDENT-C Abdominal pain, other specified site; multiple sites Morbid obesity due to excess calories 278.00 Resolved Lina Maher CRAFT SUPERINTENDENT-C Obesity, unspecified Other abnormal findings in urine Active 202 Lina Maher CRAFT SUPERINTENDENT-C Generalized colicky abdominal pain 789.07 Active [...] LPN 2017 Cough ICD-786.2 Inactive Adele Feldman HOG ROOM SUPERVISOR 06/04 SINUSITIS, ACUTE ICD-461.9 Inactive Ike lange MD Fatigue ICD-780.79 Inactive Adele Feldman HOG ROOM SUPERVISOR 2017 Bronchitis acute with bronchospasm ICD-466.0 I nactive Bertrand Patel DO Animal bite ICD-919.8 Inactive Adele Feldman LP N Mycoplasma infection ICD-041.81 Inactive Anit a Feldman HOG ROOM SUPERVISOR Amenorrhea, secondary ICD-626.0 Inactive Ani ta Feldman HOG ROOM SUPERVISOR Left maxillary sinusitis ICD-473.0 Inactive Bertrand Patel DO URI - viral ICD-465.9 Inactive Lina Maher CRAFT SUPERINTENDENT -C Pharyngitis acute ICD-462 Inactive Lina elliott CRAFT SUPERINTENDENT-C Morbid obesity due to excess calories ICD-278.00 Inactive Carla ALBERTO Medication List Medication Instructions Start Date Stop Date Generic Name NDC Status Provider Patient Instruction CYCLOBENZAPRINE HCL 10 MG ORAL TABLET 1 tablet by mout h three times a day as needed for muscle spasm CYCLOBENZAPRINE HCL 59972014279 Ac tive Lina Maher APRN-C Active HYDROCODONE-ACETAMINOPHEN 7.5-325 MG TABS 1 TAB EVERY 6 HOUR S PRN FOR PAIN HYDROCODONE-ACETAMINOPHEN 75619108681 Active Bertrand Patel DO Active TELMISARTAN 80 MG TABS 1 TABLET PO DAILY FOR BLOOD PRESSURE TELMISARTAN 79277257619 Active Adriana Davalos RN Active MODAFINIL 200 MG TABS 1/2 TABLET PO IN THE AM AND 1/2 TABLET AT NOON MODAFINIL 10779020038 Active Adriana Davalos RN Activ e DULOXETINE HCL 60 MG CPEP 1 CAPSULE PO DAILY DU LOXETINE HCL 19697573100 Active Adriana Davalos RN Active AMLODIPINE 5MG 1 TABLET PO DAILY FOR BLOOD PRESSURE AMLODIPINE BESYLATE 83683108735 Active Adriana Davalos RN Active ALPRAZOLAM 0.5 MG TABS TAKE 1 TABLET BY MOUTH THREE TIMES DAILY 201 02/10/05 ALPRAZOLAM 12090588209 Active Adriana Davalos RN Active SUDAFED 12 HOUR 120 MG ORAL TABLET EXTENDED RELEASE 12 HOUR 1 pill twice daily if for congestion PSEUDOEPHEDRINE HCL 37834444923 Active Silvia Vazquez APRN Active CHERATUSSIN AC 100-10 MG/5ML ORAL SYRUP 5ml po q6hr PRN Cough 20 21/03/15 GUAIFENESIN-CODEINE 38996860337 No Longer Active Silvia Vazquez APRN Active FLUTICASONE PROPIONATE 50 MCG/ACT NASAL SUSPENSION 2 s prays per nostril daily for 2 weeks, then 1 spray each nostril PRN FLUTI CASONE PROPIONATE 44159658833 Active Silvia Vazquez APRN Active EVENING PRIMROSE OIL 1000 MG ORAL CAPSULE 1 capsule once daily EVENING PRIMROSE OIL 14929798568 Active Bertrand Patel DO Active LEVAQUIN 500 MG ORAL TABLET 1 tablet by mouth daily 20 21/06/28 LEVOFLOXACIN 57356412837 No Longer Active Bertrand Patel DO Active PREDNISONE 20 MG ORAL TABLET Take 3 tabs for 3 days, t hen 2 tabs for 3 days, then 1 tab for 3 days PREDNISONE 60133493394 No Rainer fatou Active Galilea Sell CRAFT SUPERINTENDENT Active DOXYCYCLINE HYCLATE 100 MG ORAL CAPSULE 1 cap by mouth twice jong ly DOXYCYCLINE HYCLATE 97898230911 No Longer Active Galilea Sell CRAFT SUPERINTENDENT Active ADDERALL 10 MG ORAL TABLET 1 tab twice daily 2 AMPHETAMINE-DEXTROAMPHETAMINE 30206188193 No Longer Active Nitza Phi llips Scribe Active ZITHROMAX Z-MARTIN 250 MG ORAL TABLET 2 today and then 1 daily for 4 days AZITHROMYCIN 38402692599 No Longer Active Nitza Brewer lips Scribe Active BENZONATATE 200 MG ORAL CAPSULE 1 three times a day as neede d for cough BENZONATATE 71259254404 No Longer Active Nitzalida Brewer lips Scribe Active VITAMIN D3 03337 UNIT ORAL CAPSULE 1 pill Week x 4 mo nths for vitamin D deficiency/osteoporosis CHOLECALCIFEROL 15491178046 N o Longer Active Layla Garcia Active BACTROBAN 2 % EXTERNAL CREAM Apply to affected area BID for up to 10 days MUPIROCIN CALCIUM 76010218393 No Longer Active Ike Deluna MD Active CIPRO 500 MG ORAL TABLET 1 tablet by mouth twice daily CIPROFLOXACIN HCL 22466024643 No Longer Active Adriana Bender LPN Active AUGMENTIN 875-125 MG ORAL TABLET 1 po BID x 10 days 18/04/06 AMOXICILLIN-POT CLAVULANATE 22280846536 No Longer Active Adriana Bender LPN Active CYCLOBENZAPRINE HCL 10 MG ORAL TABLET Take 1 tab TID PRN for mus triston pain CYCLOBENZAPRINE HCL 12928734170 No Longer Active Bertrand Patel DO Active TESSALON PERLES 100 MG ORAL CAPSULE 1 tablet by mouth 3 times da juan pablo BENZONATATE 04981470508 No Longer Active Bertrand Patel DO Ac tive NEBULIZER use as directed NEBULIZERS 37401297913 No Longer Active Bertrand Patel DO Active ALBUTEROL SULFATE (2.5 MG/3ML) 0.083% INHALATION NEBUL IZATION SOLUTION one vial per nebulizer every 4-6 hours as needed ALBUTERO L SULFATE 15965411236 No Longer Active Bertrand Patel DO Active SYMBICORT 160-4.5 MCG/ACT INHALATION AEROSOL 2 puffs BID 9 BUDESONIDE-FORMOTEROL FUMARATE 02195280192 No Longer Active Bertrand W Jorge DO Active PREDNISONE 20 MG ORAL TABLET take 3 tabs daily for 3 d ays, 2 tabs daily for 3 days, 1 tab daily for 3 days, 1/2 tab daily for 3 days 08/02 PREDNISONE 84358818055 No Longer Active Silvia Taylor CRAFT SUPERINTENDENT Active AZITHROMYCIN 250 MG ORAL TABLET Take 2 tabs po today then 1 tab po daily AZITHROMYCIN 01924415858 No Longer Active Silvia Arell CRAFT SUPERINTENDENT Active AUGMENTIN 875-125 MG ORAL TABLET 1 po BID x 10 days 20 19/07/13 AMOXICILLIN-POT CLAVULANATE 01038610271 No Longer Active Adriana Bender, HOG ROOM SUPERVISOR Active CHEWABLE CALCIUM 500-200-40 MG-UNT-MCG ORAL TABLET CHEWABLE 1 chew tab bid CALCIUM-VITAMIN D-VITAMIN K 46363467813 Active Silvia Are ll CRAFT SUPERINTENDENT Active EQ COMPLETE MULTIVIT ADULT 50+ ORAL TABLET 1 tab po bid MULTIPLE VITAMINS-MINERALS 22049883953 Active Silvia Faisalll CRAFT SUPERINTENDENT Active LORTAB 7.5-500 MG ORAL TABLET take one po Q6 hours 201 09/12/01 HYDROCODONE-ACETAMINOPHEN 64919011173 No Longer Active Nirmal Robbins RN Active [facility] MELATONIN 5-10 MG ORAL TABLET EXTENDED RELEASE Jair e one by mouth daily at bedtime MELATONIN-PYRIDOXINE 63874674290 No Longer Acti ve Bertrand Patel DO Active VITAMIN E 200 UNIT ORAL CAPSULE 1 cap po qd VITAM IN E 70735356255 No Longer Active Bertrand Patel DO Active B-12 1000 MCG ORAL CAPSULE 1 tab daily CYANOCOB ALAMIN 98386158560 No Longer Active Bertrand Patel DO Active METFORMIN HCL 500 MG ORAL TABLET 1 bid METFOR MIN HCL 69317227933 No Longer Active Bertrand Patel DO Active FUROSEMIDE 20 MG ORAL TABLET 1 pill by mouth daily if needed for edema FUROSEMIDE 21987929892 No Longer Active Bertrand Patel DO Active PRAVASTATIN SODIUM 20 MG ORAL TABLET 1 tablet by mouth daily at bedtime PRAVASTATIN SODIUM 90190176941 No Longer Active Bertrand Patel DO Active AUGMENTIN 875-125 MG ORAL TABLET 1 pill by mouth twice daily 201 09/10/00 AMOXICILLIN-POT CLAVULANATE 00108109144 No Longer Active Yoli Mercado MD PhD Active LEVAQUIN 500 MG ORAL TABLET 1 pill by mouth daily 2013 LEVOFLOXACIN 37387018882 No Longer Active Yoli Mercado MD PhD Acti ve MICARDIS 80 MG ORAL TABLET 1 tablet daily for blood pressure 07/30 TELMISARTAN 02463387425 Active Adriana Davalos RN Active MICARDIS HCT 80-12.5 MG ORAL TABLET 1 qd TELMISARTAN-HCTZ 32980603744 No Longer Active Bertrand Patel DO Active CINNAMON ALPHA LIPOIC AC CMPLX CAPSULE by mouth twice a day in AM by mouth twice a day in PM ALPHA LIPOIC [id number] CA PS 88460132695 No Longer Active Bertrand Patel DO Active AZITHROMYCIN 500 MG INTRAVENOUS SOLUTION RECONSTITUTED 1 po q da y AZITHROMYCIN 99225861458 No Longer Active Bertrand Patel DO A ctive CYMBALTA 30 MG ORAL CAPSULE DELAYED RELEASE PARTICLES 1 cap by mouth daily DULOXETINE HCL 73991843732 No Longer Active Bertrand marquez DO Active CYMBALTA 60 MG ORAL CAPSULE DELAYED RELEASE PARTICLES 1 cap by mouth daily DULOXETINE HCL 66440006014 Active Adriana Davalos RN Active WELLBUTRIN 75 MG ORAL TABLET 2 times daily BUPR OPION HCL 64279462853 No Longer Active Bertrand Patel DO Active PROAIR HFA 108 (90 Base) MCG/ACT INHALATION AEROSOL SO LUTION take one to two puffs po Q4-6 hour prn cough and shortness of breath ALBUTEROL SULFATE 72579496824 Active Bertrand Patel DO Active AZITHROMYCIN 250 MG ORAL TABLET take 2 po today then take 1 po days 2-5 AZITHROMYCIN 70887722185 No Longer Active Adolfo OSORIO Active PERMETHRIN 5 % EXTERNAL CREAM apply neck to toes tonig ht and then rinse off in morning. repeat at 7 days PERMETHRIN 81659828371 No Longer Active Adolfo OSORIO Active AMOXICILLIN 500 MG ORAL CAPSULE 2 po BID x 10 days 201 07/15/00 AMOXICILLIN 86219487991 No Longer Active Yoli Mercado MD PhD Acti ve INSUPEN ULTRAFIN 31G X 6 MM USE DIRECTED INSULIN PEN NEEDLE 56633758526 No Longer Active Bertrand Patel DO Active TRANSDERM-SCOP (1.5 MG) 1 MG/3DAYS TRANSDERMAL PATCH 7 2 HOUR 1 patch applied behind ear q 3 day SCOPOLAMINE BASE 38126435611 No Lo nger Active Bertrand Patel DO Active MACRODANTIN 100 MG ORAL CAPSULE one p.o. b.i.d. x2 weeks NITROFURANTOIN MACROCRYSTAL 81811437393 No Longer Active Bertrand Patel DO Active MACRODANTIN 100 MG ORAL CAPSULE one p.o. b.i.d. x2 weeks MACRODANTIN 100 MG ORAL CAPSULE 3075647 NITROFURANTOIN MACROCRYSTAL Inactive TRANSDERM-SCOP (1.5 MG) 1 [...] days PERMETHRIN 5 % EXTER NAL CREAM 788883 PERMETHRIN Inactive WELLBUTRIN 75 MG ORAL TABLET 2 times daily WELLBUTRIN 75 MG ORAL TABLET BUPROPION HCL Inactive CYMBALTA 30 MG ORAL CAPSULE DELAYED RELEASE PARTICLES 1 cap by mouth daily CYMBALTA 30 MG ORAL CAPSULE DELAYED RELE ASE PARTICLES 755458 DULOXETINE HCL Inactive AZITHROMYCIN 500 MG INTRAVENOUS SOLUTION RECONSTITUTED 1 po q da y AZITHROMYCIN 500 MG INTRAVENOUS SOLUTION RECONSTITUTED 85850 762671 AZITHROMYCIN Inactive CINNAMON ALPHA LIPOIC AC CMPLX CAPSULE by mouth twice a day in AM by mouth twice a day in PM CINNAMON ALPHA LIPOIC AC CMPLX CAPSULE ALPHA LIPOIC [id number] CAPS Inactive MICARDIS HCT 80-12.5 MG ORAL TABLET 1 qd 07/30 MICARDIS HCT 80-12.5 MG ORAL TABLET 267411 TELMISARTAN-HCTZ Inactive PRAVASTATIN SODIUM 20 MG ORAL TABLET 1 tablet by mouth daily at bedtime PRAVASTATIN SODIUM 20 MG ORAL TABLET 062540 PRAVASTATIN SODIUM Inactive FUROSEMIDE 20 MG ORAL TABLET 1 pill by mouth daily if needed for edema FUROSEMIDE 20 MG ORAL TABLET 069906 FUROSEMIDE Inactive METFORMIN HCL 500 MG ORAL TABLET 1 bid METFORMIN HCL 500 MG ORAL TABLET 502482 METFORMIN HCL Inactive B-12 1000 MCG ORAL CAPSULE 1 tab daily B -12 1000 MCG ORAL CAPSULE CYANOCOBALAMIN Inactive VITAMIN E 200 UNIT ORAL CAPSULE 1 cap po qd 1 VITAMIN E 200 UNIT ORAL CAPSULE 7786954 VITAMIN E Inactive [facility] MELATONIN 5-10 MG [...] po daily AZITHROMYCIN 250 MG ORAL TABLET 413954 AZITHROMY BERNARDO Inactive SYMBICORT 160-4.5 MCG/ACT INHALATION AEROSOL 2 puffs BID 9 SYMBICORT 160-4.5 MCG/ACT INHALATION AEROSOL 0370258 BUDESONID E-FORMOTEROL FUMARATE Inactive ALBUTEROL SULFATE (2.5 MG/3ML) 0.083% INHALATION NEBUL IZATION SOLUTION one vial per nebulizer every 4-6 hours as needed ALBUTEROL SULFATE (2.5 MG/3ML) 0.083% INHALATION NEBULIZATION SOLUTION 671737 ALBUTER OL SULFATE Inactive NEBULIZER use as directed NEBULIZER NEBULI ZERS Inactive TESSALON PERLES 100 MG ORAL CAPSULE 1 tablet by mouth 3 times da juan pablo TESSALON PERLES 100 MG ORAL CAPSULE 142993 BENZONATATE Inactive CYCLOBENZAPRINE HCL 10 MG ORAL TABLET Take 1 tab TID PRN for mus triston pain CYCLOBENZAPRINE HCL 10 MG ORAL TABLET 581467 CYCLOBENZA ANUJA HCL Inactive AUGMENTIN 875-125 MG ORAL TABLET 1 po BID x 10 days 20 18/04/06 AUGMENTIN 875-125 MG ORAL TABLET AMOXICILLIN-POT CLAVULANATE Inactive BACTROBAN 2 % EXTERNAL CREAM Apply to affected area BID for up to 10 days BACTROBAN 2 % EXTERNAL CREAM MUPIROCIN CA LCIUM Inactive VITAMIN D3 38707 UNIT ORAL CAPSULE 1 pill Week x 4 mo nths for vitamin D deficiency/osteoporosis VITAMIN D3 23320 UNIT ORAL CAPSULE CHOLECALCIFEROL Inactive BENZONATATE 200 MG ORAL CAPSULE 1 three times a day as neede d for cough BENZONATATE 200 MG ORAL CAPSULE 092734 BENZONATA TE Inactive ZITHROMAX Z-MARTIN 250 MG ORAL TABLET 2 today and then 1 daily for 4 days ZITHROMAX Z-MARTIN 250 MG ORAL TABLET 437727 AZITHR OMYCIN Inactive ADDERALL 10 MG ORAL TABLET 1 tab twice daily 2 ADDERALL 10 MG ORAL TABLET 573829 AMPHETAMINE-DEXTROAMPHETAMINE Inactive LEVAQUIN 500 MG ORAL TABLET 1 tablet by mouth daily 20 21/06/28 LEVAQUIN 500 MG ORAL TABLET 603721 LEVOFLOXACIN Inactive AMOXICILLIN 500 MG ORAL CAPSULE 2 po BID x 10 days 201 07/15/00 AMOXICILLIN 500 MG ORAL CAPSULE 056639 AMOXICILLIN Inactive AZITHROMYCIN 250 MG ORAL TABLET take 2 po today then take 1 po days 2-5 AZITHROMYCIN 250 MG ORAL TABLET 817454 AZITHROMY BERNARDO Inactive LEVAQUIN 500 MG ORAL TABLET 1 pill by mouth daily 2013 LEVAQUIN 500 MG ORAL TABLET 813077 LEVOFLOXACIN Inactive AUGMENTIN 875-125 MG ORAL TABLET [...] days 08/02 PREDNISONE 20 MG ORAL TABLET 194013 PREDNISONE Inactive CIPRO 500 MG ORAL TABLET 1 tablet by mouth twice daily CIPRO 500 MG ORAL TABLET 705383 CIPROFLOXACIN HCL Inactive DOXYCYCLINE HYCLATE 100 MG ORAL CAPSULE 1 cap by mouth twice jong ly DOXYCYCLINE HYCLATE 100 MG ORAL CAPSULE 4936870 DOXYCYCL INE HYCLATE Inactive PREDNISONE 20 MG ORAL TABLET Take 3 tabs for 3 days, t hen 2 tabs for 3 days, then 1 tab for 3 days PREDNISONE 20 MG ORAL TABLET 312 615 PREDNISONE Inactive CHERATUSSIN AC 100-10 MG/5ML ORAL SYRUP 5ml po q6hr PRN Cough 20 21/03/15 CHERATUSSIN AC 100-10 MG/5ML ORAL SYRUP 836211 GUAIFENE SIN-CODEINE Inactive Vital Signs Date Name [...] 11 .6-14.8 platelet count 288 10^3/MM^3 10*3/mm3 839-746 0984/03/25 erythrocyte (RBC) count 4.37 10^6/MM^3 10*6/mm3 3.80-5.8 0 lymphocytes as percent of blood leukocytes 23.4 % 20.5-51.1 monocytes as percent of blood leukocytes 9.5 % 1.7-9.3 neutrophils as percent of blood leukocytes 61.2 % 42.2-75.2 leukocyte count, blood 8.8 10^3/MM^3 10*3/mm3 4.6-10.2 Lab Report: Comp. Metabolic Panel, Uday caraballo [facility] - Chemistry calcium, serum 8.2 mg/dL 8.5-10.1 bilirubin, serum, total 0.40 mg/dL 0.00-1.00 sodium, serum 140 mmol/L 072-476 5454/03/25 carbon dioxide, venous blood 33.2 mmol/L 21.0-32 [...] U/L 19-43 Lab Report: Comp. Metabolic Panel, Lipas e [facility] - Lab Alkaline phosphatase 91 50-136 [...] negative Strep Screen Lot Number (CLIA Waived) [id number] Strep Screen Exp Date (CLIA Waived) 05/02/2020 Encounters Code Encounter Date Provider Facility CPT-12508 [id number] Vst-Est Level III 16:58:04 CDT Me nae Vazquez APRN [facility] CPT-87228 [id number] Vst-Est Level IV 14:46:36 ACCOUNT DEVELOPER Foster Patel [facility] CPT-44626 Level 3 Est. Patient 12:37:30 ACCOUNT DEVELOPER Galilea Se [facility]-17453 Level 3 Est. Patient 11:40:23 CDT Bertrand marquez [facility] CPT-79445 Level 4 Est. Patient 15:33:35 ACCOUNT DEVELOPER Bertrand marquez [facility] CPT-91234 Level 4 Est. Patient 12:31:54 CDT Bertrand marquez [facility] CPT-97632 Level 3 Est. Patient 11:27:00 ACCOUNT DEVELOPER Ike Deluna MD [facility]-69837 Level 3 Est. Patient 08:50:57 ACCOUNT DEVELOPER Silvia Are ll [facility]-81623 Level 3 Est. Patient 10:04:13 CDT Bertrand marquez [facility] CPT-41676 Level 4 Est. Patient 16:02:10 ACCOUNT DEVELOPER Slivia Are ll [facility] CPT-42153 Level 3 Est. Patient 13:04:54 ACCOUNT DEVELOPER Silvia Are [facility] CPT-22464 Level 3 Est. Patient 12:56:37 CDT Bertrand marquez [facility] CPT-87154 Level 3 Est. Patient 19:12:03 CDT Yoli tolbert MD PhD [facility]-94314 Level 3 Est. Patient 14:36:01 CDT Yoli tolbert MD PhD [facility] CPT-76275 Level 2 Est. Patient 08:00:22 CDT Jcarlos dc MD [facility]-39441 Level 3 Est. Patient 19:06:55 CDT Bertrand marquez [facility] CPT-74189 Level 3 Est. Patient 10:08:23 ACCOUNT DEVELOPER Bertrand marquez [facility]-99712 Level 3 Est. Patient 16:37:54 ACCOUNT DEVELOPER Bertrand marquez [facility] CPT-09623 Level 3 Est. Patient 11:31:59 ACCOUNT DEVELOPER Bertrand marquez [facility] CPT-83416 Level 3 Est. Patient 10:20:08 CDT Gennadot villasenor [facility] CPT-24034 Level 3 Est. Patient 13:45:20 CDT Sanket Pham ina [facility] CPT-88204 Level 3 Est. Patient 12:51:06 CDT Adolfo villasenor [facility] CPT-30319 Level 3 Est. Patient 11:22:51 ACCOUNT DEVELOPER Yoli tolbert MD PhD [facility] CPT-76670 Level 3 Est. Patient 13:33:19 CDT Bertrand marquez [facility] Procedures Code Procedure Name Date Entry Date Standard Desc ription CPT-35405 Sono abd valle iinc RUQ LUQ ascites search or pylorus - XRAY USE ONLY 09:11:06 CDT CPT-00098 Venipuncture Draw Fee 16:30:28 CDT [id number]-[id number] (4274F) Influenza immunization administe red or previously received 15:55:57 CDT CPT-22792 Wound Culture - LAB USE ONLY 15:45:25 CDT 2 CPT-83689 Venipuncture Draw Fee 10:23:01 CDT CPT-J0696 Rocephin 1000 mg (Ceftriaxone) 16:20:30 ACCOUNT DEVELOPER CPT-38709 Abx/Therapy Injection 16:20:29 ACCOUNT DEVELOPER CPT-J0696 Rocephin 1gm Inj Solr 15:51:59 ACCOUNT DEVELOPER CPT-16224 Chest 2V Frontal and Lat 15:20:28 ACCOUNT DEVELOPER 07/22 CPT-22646 Breathing Tx 14:51:55 ACCOUNT DEVELOPER CPT-00992 Breathing Tx 09:57:16 ACCOUNT DEVELOPER CPT-80152 Knee comp 4/> V 11:58:06 ACCOUNT DEVELOPER
--- OUTSIDE RECORDS SUMMARY | 2019-11-13 09:47 | XMS REPORT | Clinical Summary ---
Author Author Admin, Enrique Stewart Organization [facility] Address Unknown Phone Unavailable Allergies, Adverse Reactions, [...] not stated as uncontrolled Morbid obesity 278.01 Active Bertrand Patel DO Morbid obesity Hyperlipidemia 272.4 Active Bertrand Patel DO Other [...] Mullins Scribe Headache Cough 786.2 Resolved Nitza Mullins Scribe Cough SINUSITIS, ACUTE 461.9 Resolved Ike Deluna MD Acute sinusitis, unspecified Fatigue 780.79 Resolved Nitza Liuibe Other malaise and fatigue Bronchitis acute with bronchospasm 466.0 Resolved Nitza Russelle Acute bronchitis Bronchitis acute with bronchospasm 466.0 Resolved Bertrand Patel DO Acute bronchitis Narcolepsy 347.00 Active Bertrand Patel DO Narcolepsy without cataplexy Animal bite 919.8 Resolved Nitza Liuib e Other and unspecified superficial injury of other, multiple, and unspecified sites, without mention of infection Mycoplasma infection 041.81 Resolved Abiel ti Mullins Scribe Mycoplasma infection in cond itions classified [...] health care facility URI - viral 465.9 Active Silvia Vazquez APRN Acute upper respiratory infections of unspecified site Pharyngitis acute 462 Active Silvia Vazquez APRN Acute pharyngitis Abdominal pain, upper 789.09 Active Lina Stewart PRN-C Abdominal pain, other specified site; multiple sites Flank pain, left 789.09 Active Lina Maher APRN-C Abdominal pain, other specified site; multiple sites Morbid obesity due to excess calories 278.00 Resolved Lina Maher APRN-C Obesity, unspecified HEALTH SCREENING ICD-V70.0 Inactive Yoli sabillon MD PhD SCABIES ICD-133.0 Inactive Yoli Mercado MD PhD 201 07/14/20 FH DIABETES ICD-V18.0 Inactive Yoli Mercado MD PhD 20 14/02/29 SINUSITIS, FRONTAL, ACUTE ICD-461.1 Inactive Yoli Mercado MD PhD COUGH ICD-786.2 Inactive Yoli Mercado MD PhD 201 09/09/28 EDEMA LEG ICD-782.3 Inactive Adele Feldman LPN 201 01/01/02 SHORTNESS OF BREATH ICD-786.05 Inactive Yoli Mercado MD PhD RIB PAIN, RIGHT SIDED ICD-786.50 Inactive Yoli Mercado MD PhD KNEE PAIN, RIGHT ICD-719.46 Inactive Adele Esqueda ghn [facility] Knee pain, left ICD-719.46 Inactive Adele damico HUMAN RESOURCES OPERATIONS DIRECTOR Pharyngitis-Acute ICD-462 Inactive Bertrand Redmond [...] lange MD Fatigue ICD-780.79 Inactive Adele Feldman LPN 2017 Bronchitis acute with bronchospasm ICD-466.0 I nactive Bertrand Patel DO Animal bite ICD-919.8 Inactive Adele Gaston HUNG N Mycoplasma infection ICD-041.81 Inactive Stephane stewart Gaston ARTHUR Amenorrhea, secondary ICD-626.0 Inactive Clotilde alcantara Gaston HUNGN Left maxillary sinusitis ICD-473.0 Inactive Bertrand Patel DO Morbid obesity due to excess calories ICD-278.00 Inactive Carla ALBERTO Medication List Medication Instructions Start Date Stop Date Generic Name NDC Status Provider Patient Instruction CYCLOBENZAPRINE HCL 10 MG ORAL TABLET 1 tablet by mout h three times a day as needed for muscle spasm CYCLOBENZAPRINE HCL 72018956822 Ton BAZZI Active HYDROCODONE-ACETAMINOPHEN 7.5-325 MG TABS 1 TAB EVERY 6 HOUR S PRN FOR PAIN HYDROCODONE-ACETAMINOPHEN 29812861727 Active Bertrand Patel DO Active TELMISARTAN 80 MG TABS 1 TABLET PO DAILY FOR BLOOD PRESSURE TELMISARTAN 75094733557 Active Adriana Davalos RN Active MODAFINIL 200 MG TABS 1/2 TABLET PO IN THE AM AND 1/2 TABLET AT NOON MODAFINIL 53928902883 Active Adriana Davalos RN Activ e DULOXETINE HCL 60 MG CPEP 1 CAPSULE PO DAILY DU LOXETINE HCL 76083392250 Active Adriana Davalos RN Active AMLODIPINE 5MG 1 TABLET PO DAILY FOR BLOOD PRESSURE AMLODIPINE BESYLATE 06104269457 Active Adriana Davalos RN Active ALPRAZOLAM 0.5 MG TABS TAKE 1 TABLET BY MOUTH THREE TIMES DAILY 201 02/10/05 ALPRAZOLAM 56053982234 Active Adriana Davalos RN Active SUDAFED 12 HOUR 120 MG ORAL TABLET EXTENDED RELEASE 12 HOUR 1 pill twice daily if for congestion PSEUDOEPHEDRINE HCL 45960195159 Active Silvia Vazquez ADMITTING COUNSELOR Active CHERATUSSIN AC 100-10 MG/5ML ORAL SYRUP 5ml po q6hr PRN Cough 20 21/03/15 GUAIFENESIN-CODEINE 58723871027 No Longer Active Silvia Faisalll ADMITTING COUNSELOR Active FLUTICASONE PROPIONATE 50 MCG/ACT NASAL SUSPENSION 2 s prays per nostril daily for 2 weeks, then 1 spray each nostril PRN FLUTI CASONE PROPIONATE 37908290527 Active Silvia Faisalkalin ADMITTING COUNSELOR Active EVENING PRIMROSE OIL 1000 MG ORAL CAPSULE 1 capsule once daily EVENING PRIMROSE OIL 77897486254 Active Bertrand Patel DO Active LEVAQUIN 500 MG ORAL TABLET 1 tablet by mouth daily 21/06/28 LEVOFLOXACIN 03225223261 No Longer Active Bertrand Patel DO Active PREDNISONE 20 MG ORAL TABLET Take 3 tabs for 3 days, t hen 2 tabs for 3 days, then 1 tab for 3 days PREDNISONE 26960995465 No Rainer fatou Active Galilea Sell ADMITTING COUNSELOR Active DOXYCYCLINE HYCLATE 100 MG ORAL CAPSULE 1 cap by mouth twice jong ly DOXYCYCLINE HYCLATE 05426639120 No Longer Active Galilea Sell ADMITTING COUNSELOR Active ADDERALL 10 MG ORAL TABLET 1 tab twice daily 2 AMPHETAMINE-DEXTROAMPHETAMINE 90858820430 No Longer Active Nitza Phi llips Scribe Active ZITHROMAX Z-MARTIN 250 MG ORAL TABLET 2 today and then 1 daily for 4 days AZITHROMYCIN 23737189178 No Longer Active Nitza Osman lips Scribe Active BENZONATATE 200 MG ORAL CAPSULE 1 three times a day as neede d for cough BENZONATATE 37482885691 No Longer Active Nitza Osman lips Scribe Active VITAMIN D3 52465 UNIT ORAL CAPSULE 1 pill Week x 4 mo nths for vitamin D deficiency/osteoporosis CHOLECALCIFEROL 14975020362 N o Longer Active Layla Garcia Active BACTROBAN 2 % EXTERNAL CREAM Apply to affected area BID for up to 10 days MUPIROCIN CALCIUM 75023614054 No Longer Active Ike Deluna MD Active CIPRO 500 MG ORAL TABLET 1 tablet by mouth twice daily CIPROFLOXACIN HCL 74500918198 No Longer Active Adriana Bender LPN Active AUGMENTIN 875-125 MG ORAL TABLET 1 po BID x 10 days 20 18/04/06 AMOXICILLIN-POT CLAVULANATE 39827584540 No Longer Active Adriana Bender LPN Active CYCLOBENZAPRINE HCL 10 MG ORAL TABLET Take 1 tab TID PRN for mus triston pain CYCLOBENZAPRINE HCL 23928512310 No Longer Active Bertrand Patel DO Active TESSALON PERLES 100 MG ORAL CAPSULE 1 tablet by mouth 3 times da juan pablo BENZONATATE 82791797940 No Longer Active Bertrand Patel DO Ac tive NEBULIZER use as directed NEBULIZERS 29571199109 No Longer Active Bertrand Patel DO Active ALBUTEROL SULFATE (2.5 MG/3ML) 0.083% INHALATION NEBUL IZATION SOLUTION one vial per nebulizer every 4-6 hours as needed ALBUTERO L SULFATE 71656448646 No Longer Active Bertrand Patel DO Active SYMBICORT 160-4.5 MCG/ACT INHALATION AEROSOL 2 puffs BID 9 BUDESONIDE-FORMOTEROL FUMARATE 45744273467 No Longer Active Bertrand Patel DO Active PREDNISONE 20 MG ORAL TABLET take 3 tabs daily for 3 d ays, 2 tabs daily for 3 days, 1 tab daily for 3 days, 1/2 tab daily for 3 days 08/02 PREDNISONE 63881691882 No Longer Active Silvia Vazquez ADMITTING COUNSELOR Active AZITHROMYCIN 250 MG ORAL TABLET Take 2 tabs po today then 1 tab po daily AZITHROMYCIN 90769341507 No Longer Active Silvia Vazquez ADMITTING COUNSELOR Active AUGMENTIN 875-125 MG ORAL TABLET 1 po BID x 10 days 20 19/07/13 AMOXICILLIN-POT CLAVULANATE 43630358213 No Longer Active Adriana Whittley, HUMAN RESOURCES OPERATIONS DIRECTOR Active CHEWABLE CALCIUM 500-200-40 MG-UNT-MCG ORAL TABLET CHEWABLE 1 chew tab bid CALCIUM-VITAMIN D-VITAMIN K 61095595054 Active Silvia Are ll ADMITTING COUNSELOR Active EQ COMPLETE MULTIVIT ADULT 50+ ORAL TABLET 1 tab po bid MULTIPLE VITAMINS-MINERALS 65345405525 Active Silvia Arell ADMITTING COUNSELOR Active LORTAB 7.5-500 MG ORAL TABLET take one po Q6 hours 201 09/12/01 HYDROCODONE-ACETAMINOPHEN 12595991760 No Longer Active Nirmal Robbins RN Active [facility] MELATONIN 5-10 MG ORAL TABLET EXTENDED RELEASE Jair e one by mouth daily at bedtime MELATONIN-PYRIDOXINE 46342597493 No Longer Acti ve Bertrand Patel DO Active VITAMIN E 200 UNIT ORAL CAPSULE 1 cap po qd VITAM IN E 62037550700 No Longer Active Bertrand Patel DO Active B-12 1000 MCG ORAL CAPSULE 1 tab daily CYANOCOB ALAMIN 60906303480 No Longer Active Bertrand Patel DO Active METFORMIN HCL 500 MG ORAL TABLET 1 bid METFOR MIN HCL 64470715027 No Longer Active Bertrand Patel DO Active FUROSEMIDE 20 MG ORAL TABLET 1 pill by mouth daily if needed for edema FUROSEMIDE 18959127174 No Longer Active Bertrand Patel DO Active PRAVASTATIN SODIUM 20 MG ORAL TABLET 1 tablet by mouth daily at bedtime PRAVASTATIN SODIUM 30054922753 No Longer Active Bertrand Patel DO Active AUGMENTIN 875-125 MG ORAL TABLET 1 pill by mouth twice daily 201 09/10/00 AMOXICILLIN-POT CLAVULANATE 69498418064 No Longer Active Yoli Mercado MD PhD Active LEVAQUIN 500 MG ORAL TABLET 1 pill by mouth daily 2013 LEVOFLOXACIN 63033339849 No Longer Active Yoli Mercado MD PhD Acti ve MICARDIS 80 MG ORAL TABLET 1 tablet daily for blood pressure 07/30 TELMISARTAN 91575954519 Active Adriana Davalos RN Active MICARDIS HCT 80-12.5 MG ORAL TABLET 1 qd TELMISARTAN-HCTZ 48737333210 No Longer Active Bertrand Patel DO Active CINNAMON ALPHA LIPOIC AC CMPLX CAPSULE by mouth twice a day in AM by mouth twice a day in PM ALPHA LIPOIC LDUO-HJ-HNUQWAVY CA PS 38706159943 No Longer Active Bertrand Patel DO Active AZITHROMYCIN 500 MG INTRAVENOUS SOLUTION RECONSTITUTED 1 po q da y AZITHROMYCIN 37017623354 No Longer Active Bertrand Patel DO A ctive CYMBALTA 30 MG ORAL CAPSULE DELAYED RELEASE PARTICLES 1 cap by mouth daily DULOXETINE HCL 83577263678 No Longer Active Bertrand marquez DO Active CYMBALTA 60 MG ORAL CAPSULE DELAYED RELEASE PARTICLES 1 cap by mouth daily DULOXETINE HCL 32169651419 Active Adriana Davalos RN Active WELLBUTRIN 75 MG ORAL TABLET 2 times daily BUPR OPION HCL 25472813181 No Longer Active Bertrand Patel DO Active PROAIR HFA 108 (90 Base) MCG/ACT INHALATION AEROSOL SO LUTION take one to two puffs po Q4-6 hour prn cough and shortness of breath ALBUTEROL SULFATE 88009579365 Active Bertrand Patel DO Active AZITHROMYCIN 250 MG ORAL TABLET take 2 po today then take 1 po days 2-5 AZITHROMYCIN 44798270731 No Longer Active Adolfo OSORIO Active PERMETHRIN 5 % EXTERNAL CREAM apply neck to toes tonig ht and then rinse off in morning. repeat at 7 days PERMETHRIN 72906053684 No Longer Active Adolfo OSORIO Active AMOXICILLIN 500 MG ORAL CAPSULE 2 po BID x 10 days 201 07/15/00 AMOXICILLIN 59084689261 No Longer Active Yoli Mercado MD PhD Acti ve INSUPEN ULTRAFIN 31G X 6 MM USE DIRECTED INSULIN PEN NEEDLE 41335513267 No Longer Active Bertrand Patel DO Active TRANSDERM-SCOP (1.5 MG) 1 MG/3DAYS TRANSDERMAL PATCH 7 2 HOUR 1 patch applied behind ear q 3 day SCOPOLAMINE BASE 39664274410 No Lo nger Active Bertrand Patel DO Active MACRODANTIN 100 MG ORAL CAPSULE one p.o. b.i.d. x2 weeks NITROFURANTOIN MACROCRYSTAL 05496660167 No Longer Active Bertrand Patel DO Active MACRODANTIN 100 MG ORAL CAPSULE one p.o. b.i.d. x2 weeks MACRODANTIN 100 MG ORAL CAPSULE 7713474 NITROFURANTOIN MACROCRYSTAL Inactive TRANSDERM-SCOP (1.5 MG) 1 [...] days PERMETHRIN 5 % EXTER NAL CREAM 585663 PERMETHRIN Inactive WELLBUTRIN 75 MG ORAL TABLET 2 times daily WELLBUTRIN 75 MG ORAL TABLET BUPROPION HCL Inactive CYMBALTA 30 MG ORAL CAPSULE DELAYED RELEASE PARTICLES 1 cap by mouth daily CYMBALTA 30 MG ORAL CAPSULE DELAYED RELE ASE PARTICLES 660490 DULOXETINE HCL Inactive AZITHROMYCIN 500 MG INTRAVENOUS SOLUTION RECONSTITUTED 1 po q da y AZITHROMYCIN 500 MG INTRAVENOUS SOLUTION RECONSTITUTED 07660 927719 AZITHROMYCIN Inactive CINNAMON ALPHA LIPOIC AC CMPLX CAPSULE by mouth twice a day in AM by mouth twice a day in PM CINNAMON ALPHA LIPOIC AC CMPLX CAPSULE ALPHA LIPOIC [id number] CAPS Inactive MICARDIS HCT 80-12.5 MG ORAL TABLET 1 qd 07/30 MICARDIS HCT 80-12.5 MG ORAL TABLET 618937 TELMISARTAN-HCTZ Inactive PRAVASTATIN SODIUM 20 MG ORAL TABLET 1 tablet by mouth daily at bedtime PRAVASTATIN SODIUM 20 MG ORAL TABLET 083702 PRAVASTATIN SODIUM Inactive FUROSEMIDE 20 MG ORAL TABLET 1 pill by mouth daily if needed for edema FUROSEMIDE 20 MG ORAL TABLET 556941 FUROSEMIDE Inactive METFORMIN HCL 500 MG ORAL TABLET 1 bid METFORMIN HCL 500 MG ORAL TABLET 423897 METFORMIN HCL Inactive B-12 1000 MCG ORAL CAPSULE 1 tab daily B -12 1000 MCG ORAL CAPSULE CYANOCOBALAMIN Inactive VITAMIN E 200 UNIT ORAL CAPSULE 1 cap po qd 1 VITAMIN E 200 UNIT ORAL CAPSULE 5106710 VITAMIN E Inactive [facility] MELATONIN 5-10 MG [...] po daily AZITHROMYCIN 250 MG ORAL TABLET 556610 AZITHROMY BERNARDO Inactive SYMBICORT 160-4.5 MCG/ACT INHALATION AEROSOL 2 puffs BID 9 SYMBICORT 160-4.5 MCG/ACT INHALATION AEROSOL 2299960 BUDESONID E-FORMOTEROL FUMARATE Inactive ALBUTEROL SULFATE (2.5 MG/3ML) 0.083% INHALATION NEBUL IZATION SOLUTION one vial per nebulizer every 4-6 hours as needed ALBUTEROL SULFATE (2.5 MG/3ML) 0.083% INHALATION NEBULIZATION SOLUTION 215537 ALBUTER OL SULFATE Inactive NEBULIZER use as directed NEBULIZER NEBULI ZERS Inactive TESSALON PERLES 100 MG ORAL CAPSULE 1 tablet by mouth 3 times da juan pablo TESSALON PERLES 100 MG ORAL CAPSULE 126794 BENZONATATE Inactive CYCLOBENZAPRINE HCL 10 MG ORAL TABLET Take 1 tab TID PRN for mus triston pain CYCLOBENZAPRINE HCL 10 MG ORAL TABLET 354226 CYCLOBENZA ANUJA HCL Inactive AUGMENTIN 875-125 MG ORAL TABLET 1 po BID x 10 days 20 18/04/06 AUGMENTIN 875-125 MG ORAL TABLET AMOXICILLIN-POT CLAVULANATE Inactive BACTROBAN 2 % EXTERNAL CREAM Apply to affected area BID for up to 10 days BACTROBAN 2 % EXTERNAL CREAM MUPIROCIN CA LCIUM Inactive VITAMIN D3 70589 UNIT ORAL CAPSULE 1 pill Week x 4 mo [facility] for vitamin D deficiency/osteoporosis VITAMIN D3 08735 UNIT ORAL CAPSULE CHOLECALCIFEROL Inactive BENZONATATE 200 MG ORAL CAPSULE 1 three times a day as neede d for cough BENZONATATE 200 MG ORAL CAPSULE 007709 BENZONATA TE Inactive ZITHROMAX Z-MARTIN 250 MG ORAL TABLET 2 today and then 1 daily for 4 days ZITHROMAX Z-MARTIN 250 MG ORAL TABLET 144677 AZITHR OMYCIN Inactive ADDERALL 10 MG ORAL TABLET 1 tab twice daily 2 ADDERALL 10 MG ORAL TABLET 465239 AMPHETAMINE-DEXTROAMPHETAMINE Inactive LEVAQUIN 500 MG ORAL TABLET 1 tablet by mouth daily 20 21/06/28 LEVAQUIN 500 MG ORAL TABLET 518343 LEVOFLOXACIN Inactive AMOXICILLIN 500 MG ORAL CAPSULE 2 po BID x 10 days 201 07/15/00 AMOXICILLIN 500 MG ORAL CAPSULE 667797 AMOXICILLIN Inactive AZITHROMYCIN 250 MG ORAL TABLET take 2 po today then take 1 po days 2-5 AZITHROMYCIN 250 MG ORAL TABLET 250940 AZITHROMY BERNARDO Inactive LEVAQUIN 500 MG ORAL TABLET 1 pill by mouth daily 2013 LEVAQUIN 500 MG ORAL TABLET 159588 LEVOFLOXACIN Inactive AUGMENTIN 875-125 MG ORAL TABLET [...] days 08/02 PREDNISONE 20 MG ORAL TABLET 879175 PREDNISONE Inactive CIPRO 500 MG ORAL TABLET 1 tablet by mouth twice daily CIPRO 500 MG ORAL TABLET 613221 CIPROFLOXACIN HCL Inactive DOXYCYCLINE HYCLATE 100 MG ORAL CAPSULE 1 cap by mouth twice jong ly DOXYCYCLINE HYCLATE 100 MG ORAL CAPSULE 2675620 DOXYCYCL INE HYCLATE Inactive PREDNISONE 20 MG ORAL TABLET Take 3 tabs for 3 days, t hen 2 tabs for 3 days, then 1 tab for 3 days PREDNISONE 20 MG ORAL TABLET 312 615 PREDNISONE Inactive CHERATUSSIN AC 100-10 MG/5ML ORAL SYRUP 5ml po q6hr PRN Cough 20 21/03/15 CHERATUSSIN AC 100-10 MG/5ML ORAL SYRUP 507663 GUAIFENE SIN-CODEINE Inactive Vital Signs Date Name [...] Results Date Name Value Unit Range Description Office Visit: S/T, Fever, Cough - Microb iology Strep Screen QC Result (CLIA Waived) negative Strep Screen Lot Number (CLIA Waived) [id number] Strep Screen Exp Date (CLIA Waived) 05/02/2020 Encounters Code Encounter Date Provider Facility CPT-55956 25877-[id number] Vst-Est Level III 16:58:04 CDT Me nae Vazquez [facility]-77920 [id number] Vst-Est Level IV 14:46:36 TAX ADJUSTER Foster Patel [facility] CPT-68506 Level 3 Est. Patient 12:37:30 TAX ADJUSTER Galilea Se [facility] CPT-28066 Level 3 Est. Patient 11:40:23 CDT Bertrand marquez [facility] CPT-39337 Level 4 Est. Patient 15:33:35 TAX ADJUSTER Bertrand marquez [facility] CPT-52246 Level 4 Est. Patient 12:31:54 CDT Bertrand marquez [facility]-35493 Level 3 Est. Patient 11:27:00 TAX ADJUSTER Ike Deluna MD [facility] CPT-79248 Level 3 Est. Patient 08:50:57 TAX ADJUSTER Silvia Are ll [facility] CPT-76622 Level 3 Est. Patient 10:04:13 CDT Bertrand marquez [facility] CPT-96404 Level 4 Est. Patient 16:02:10 TAX ADJUSTER Silvia Are [facility] CPT-70561 Level 3 Est. Patient 13:04:54 TAX ADJUSTER Silvia Are [facility] CPT-78962 Level 3 Est. Patient 12:56:37 CDT Bertrand marquez [facility] CPT-20183 Level 3 Est. Patient 19:12:03 CDT Yoli tolbert MD [facility] CPT-79120 Level 3 Est. Patient 14:36:01 CDT Yoli tolbert MD [facility] CPT-49957 Level 2 Est. Patient 08:00:22 CDT Jcarlos dc MD [facility]-26742 Level 3 Est. Patient 19:06:55 CDT Bertrand marquez [facility] CPT-85843 Level 3 Est. Patient 10:08:23 TAX ADJUSTER Bertrand marquez [facility] CPT-74398 Level 3 Est. Patient 16:37:54 TAX ADJUSTER Bertrand Jacklyn Ridge marquez [facility] CPT-41298 Level 3 Est. Patient 11:31:59 TAX ADJUSTER Bertrand marquez [facility] CPT-71937 Level 3 Est. Patient 10:20:08 CDT Gennadot Porfirioridge villasenor [facility] CPT-73689 Level 3 Est. Patient 13:45:20 CDT Sanket Josekelvin buckley [facility] CPT-20757 Level 3 Est. Patient 12:51:06 CDT Adolfo villasenor [facility] CPT-77121 Level 3 Est. Patient 11:22:51 TAX ADJUSTER Yoli tolbert MD [facility] CPT-12944 Level 3 Est. Patient 13:33:19 CDT Bertrand Jacklyn marquez [facility] Procedures Code Procedure Name Date Entry Date Standard Desc ription CPT-84513 Venipuncture Draw Fee 16:30:28 CDT [id number] ([id number]) Influenza immunization administe red or previously received 15:55:57 CDT CPT-35652 Wound Culture - LAB USE ONLY 15:45:25 CDT 2 CPT-91649 Venipuncture Draw Fee 10:23:01 CDT CPT-J0696 Rocephin 1000 mg (Ceftriaxone) 16:20:30 TAX ADJUSTER CPT-78954 Abx/Therapy Injection 16:20:29 TAX ADJUSTER CPT-J0696 Rocephin 1gm Inj Solr 15:51:59 TAX ADJUSTER CPT-22752 Chest 2V Frontal and Lat 15:20:28 TAX ADJUSTER 07/22 CPT-31488 Breathing Tx 14:51:55 TAX ADJUSTER CPT-94581 Breathing Tx 09:57:16 TAX ADJUSTER CPT-59798 Knee comp 4/> V 11:58:06 TAX ADJUSTER
--- OUTSIDE RECORDS SUMMARY | 2019-11-13 09:47 | XMS REPORT | Clinical Summary ---
Author Author Admin, Enrique Adamson Organization [employer] Address Unknown Phone Unavailable Allergies, Adverse Reactions, [...] URI - viral 465.9 Resolved Lina Maher BREAKDOWN WORKER-C Acute upper respiratory infections of unspecified site Pharyngitis acute 462 Resolved Lina Maher BREAKDOWN WORKER -C Acute pharyngitis Abdominal pain, upper 789.09 Active Lina Maher A PRN-C Abdominal pain, other specified site; multiple sites Flank pain, left 789.09 Active Lina Maher BREAKDOWN WORKER-C Abdominal pain, other specified site; multiple sites Morbid obesity due to excess calories 278.00 Resolved Lina Maher BREAKDOWN WORKER-C Obesity, unspecified Other abnormal findings in urine Active 202 Lina Maher BREAKDOWN WORKER-C Generalized colicky abdominal pain 789.07 Active 2 [...] 09/09/28 EDEMA LEG ICD-782.3 Inactive Adele Feldman [facility] 201 01/01/02 SHORTNESS OF BREATH ICD-786.05 Inactive Yoli Mercado MD PhD RIB PAIN, RIGHT SIDED ICD-786.50 Inactive Yoli Mercado MD PhD KNEE PAIN, RIGHT ICD-719.46 Inactive Adele chiu [facility] Knee pain, left ICD-719.46 Inactive Adele damico [facility] Pharyngitis-Acute ICD-462 Inactive Bertrand Redmond DO Polyuria ICD-788.42 Inactive Yoli Mercado MD P hD Cellulitis, leg, right ICD-682.6 Inactive Yuki Deluna MD Foreign body, ear ICD-931 Inactive Yoli salazar MD PhD Fatigue ICD-780.79 Inactive Ike Deluna MD 201 12/01/06 Headache ICD-784.0 Inactive Adele Feldman LPN 2017 Cough ICD-786.2 Inactive Adele Feldman LEARNING CENTER INSTRUCTOR 06/04 SINUSITIS, ACUTE ICD-461.9 Inactive Ike lange MD Fatigue ICD-780.79 Inactive Adele Feldman LEARNING CENTER INSTRUCTOR 2017 Bronchitis acute with bronchospasm ICD-466.0 I nactive Bertrand Patel DO Animal bite ICD-919.8 Inactive Adele Feldman LP N Mycoplasma infection ICD-041.81 Inactive Anit a Feldman LEARNING CENTER INSTRUCTOR Amenorrhea, secondary ICD-626.0 Inactive Ani ta Feldman LEARNING CENTER INSTRUCTOR Left maxillary sinusitis ICD-473.0 Inactive Bertrand Patel DO URI - viral ICD-465.9 Inactive Lina Maher BREAKDOWN WORKER -C Pharyngitis acute ICD-462 Inactive Lina elliott BREAKDOWN WORKER-C Morbid obesity due to excess calories ICD-278.00 Inactive Carla ALBERTO Medication List Medication Instructions Start Date Stop Date Generic Name NDC Status Provider Patient Instruction CYCLOBENZAPRINE HCL 10 MG ORAL TABLET 1 tablet by mout h three times a day as needed for muscle spasm CYCLOBENZAPRINE HCL 91483291886 Ac tive Lina Maher APRN-C Active HYDROCODONE-ACETAMINOPHEN 7.5-325 MG TABS 1 TAB EVERY 6 HOUR S PRN FOR PAIN HYDROCODONE-ACETAMINOPHEN 28510222456 Active Bertrand Patel DO Active TELMISARTAN 80 MG TABS 1 TABLET PO DAILY FOR BLOOD PRESSURE TELMISARTAN 36189865671 Active Adriana Davalos RN Active MODAFINIL 200 MG TABS 1/2 TABLET PO IN THE AM AND 1/2 TABLET AT NOON MODAFINIL 96949917002 Active Adriana Davalos RN Activ e DULOXETINE HCL 60 MG CPEP 1 CAPSULE PO DAILY DU LOXETINE HCL 82595176551 Active Adriana Davalos RN Active AMLODIPINE 5MG 1 TABLET PO DAILY FOR BLOOD PRESSURE AMLODIPINE BESYLATE 93223502042 Active Adriana Davalos RN Active ALPRAZOLAM 0.5 MG TABS TAKE 1 TABLET BY MOUTH THREE TIMES DAILY 201 02/10/05 ALPRAZOLAM 69944843222 Active Adriana Davalos RN Active SUDAFED 12 HOUR 120 MG ORAL TABLET EXTENDED RELEASE 12 HOUR 1 pill twice daily if for congestion PSEUDOEPHEDRINE HCL 16709695558 Active Silvia Vazquez APRN Active CHERATUSSIN AC 100-10 MG/5ML ORAL SYRUP 5ml po q6hr PRN Cough 20 21/03/15 GUAIFENESIN-CODEINE 91247277862 No Longer Active Silvia Vazquez APRN Active FLUTICASONE PROPIONATE 50 MCG/ACT NASAL SUSPENSION 2 s prays per nostril daily for 2 weeks, then 1 spray each nostril PRN FLUTI CASONE PROPIONATE 52785853452 Active Silvia Vazquez APRN Active EVENING PRIMROSE OIL 1000 MG ORAL CAPSULE 1 capsule once daily EVENING PRIMROSE OIL 10111306977 Active Bertrand Patel DO Active LEVAQUIN 500 MG ORAL TABLET 1 tablet by mouth daily 20 21/06/28 LEVOFLOXACIN 64511608812 No Longer Active Bertrand Patel DO Active PREDNISONE 20 MG ORAL TABLET Take 3 tabs for 3 days, t hen 2 tabs for 3 days, then 1 tab for 3 days PREDNISONE 57433692511 No Rainer fatou Active Galilea Sell BREAKDOWN WORKER Active DOXYCYCLINE HYCLATE 100 MG ORAL CAPSULE 1 cap by mouth twice jnog ly DOXYCYCLINE HYCLATE 79495623763 No Longer Active Galilea Sell BREAKDOWN WORKER Active ADDERALL 10 MG ORAL TABLET 1 tab twice daily 2 AMPHETAMINE-DEXTROAMPHETAMINE 91240122462 No Longer Active Nitza Phi llips Scribe Active ZITHROMAX Z-MARTIN 250 MG ORAL TABLET 2 today and then 1 daily for 4 days AZITHROMYCIN 40424565487 No Longer Active Nitza Brewer lips Scribe Active BENZONATATE 200 MG ORAL CAPSULE 1 three times a day as neede d for cough BENZONATATE 70413682456 No Longer Active Nitzalida Brewer lips Scribe Active VITAMIN D3 12455 UNIT ORAL CAPSULE 1 pill Week x 4 mo nths for vitamin D deficiency/osteoporosis CHOLECALCIFEROL 88197719938 N o Longer Active Layla Garcia Active BACTROBAN 2 % EXTERNAL CREAM Apply to affected area BID for up to 10 days MUPIROCIN CALCIUM 69778050839 No Longer Active Ike Deluna MD Active CIPRO 500 MG ORAL TABLET 1 tablet by mouth twice daily CIPROFLOXACIN HCL 49127829349 No Longer Active Adriana Bender LPN Active AUGMENTIN 875-125 MG ORAL TABLET 1 po BID x 10 days 18/04/06 AMOXICILLIN-POT CLAVULANATE 21906358522 No Longer Active Adriana Bender LPN Active CYCLOBENZAPRINE HCL 10 MG ORAL TABLET Take 1 tab TID PRN for mus triston pain CYCLOBENZAPRINE HCL 81373387817 No Longer Active Bertrand Patel DO Active TESSALON PERLES 100 MG ORAL CAPSULE 1 tablet by mouth 3 times da juan pablo BENZONATATE 96488104159 No Longer Active Bertrand Patel DO Ac tive NEBULIZER use as directed NEBULIZERS 73407338119 No Longer Active Bertrand Patel DO Active ALBUTEROL SULFATE (2.5 MG/3ML) 0.083% INHALATION NEBUL IZATION SOLUTION one vial per nebulizer every 4-6 hours as needed ALBUTERO L SULFATE 55469356370 No Longer Active Bertrand Patel DO Active SYMBICORT 160-4.5 MCG/ACT INHALATION AEROSOL 2 puffs BID 9 BUDESONIDE-FORMOTEROL FUMARATE 42406440016 No Longer Active Bertrand W Jorge DO Active PREDNISONE 20 MG ORAL TABLET take 3 tabs daily for 3 d ays, 2 tabs daily for 3 days, 1 tab daily for 3 days, 1/2 tab daily for 3 days 08/02 PREDNISONE 93638466113 No Longer Active Silvia Taylor BREAKDOWN WORKER Active AZITHROMYCIN 250 MG ORAL TABLET Take 2 tabs po today then 1 tab po daily AZITHROMYCIN 43681794676 No Longer Active Silvia Arell BREAKDOWN WORKER Active AUGMENTIN 875-125 MG ORAL TABLET 1 po BID x 10 days 20 19/07/13 AMOXICILLIN-POT CLAVULANATE 82509198553 No Longer Active Adriana Bender, LEARNING CENTER INSTRUCTOR Active CHEWABLE CALCIUM 500-200-40 MG-UNT-MCG ORAL TABLET CHEWABLE 1 chew tab bid CALCIUM-VITAMIN D-VITAMIN K 68392093761 Active Silvia Are ll BREAKDOWN WORKER Active EQ COMPLETE MULTIVIT ADULT 50+ ORAL TABLET 1 tab po bid MULTIPLE VITAMINS-MINERALS 92425979981 Active Silvia Faisalll BREAKDOWN WORKER Active LORTAB 7.5-500 MG ORAL TABLET take one po Q6 hours 201 09/12/01 HYDROCODONE-ACETAMINOPHEN 32071291810 No Longer Active Nirmal Robbins RN Active [facility] MELATONIN 5-10 MG ORAL TABLET EXTENDED RELEASE Jair e one by mouth daily at bedtime MELATONIN-PYRIDOXINE 26442644437 No Longer Acti ve Bertrand Patel DO Active VITAMIN E 200 UNIT ORAL CAPSULE 1 cap po qd VITAM IN E 29315735648 No Longer Active Bertrand Patel DO Active B-12 1000 MCG ORAL CAPSULE 1 tab daily CYANOCOB ALAMIN 16938145434 No Longer Active Bertrand Patel DO Active METFORMIN HCL 500 MG ORAL TABLET 1 bid METFOR MIN HCL 36275432324 No Longer Active Bertrand Patel DO Active FUROSEMIDE 20 MG ORAL TABLET 1 pill by mouth daily if needed for edema FUROSEMIDE 84104553039 No Longer Active Bertrand Patel DO Active PRAVASTATIN SODIUM 20 MG ORAL TABLET 1 tablet by mouth daily at bedtime PRAVASTATIN SODIUM 18815191717 No Longer Active Bertrand Patel DO Active AUGMENTIN 875-125 MG ORAL TABLET 1 pill by mouth twice daily 201 09/10/00 AMOXICILLIN-POT CLAVULANATE 80975032760 No Longer Active Yoli Mercado MD PhD Active LEVAQUIN 500 MG ORAL TABLET 1 pill by mouth daily 2013 LEVOFLOXACIN 14629419846 No Longer Active Yoli Mercado MD PhD Acti ve MICARDIS 80 MG ORAL TABLET 1 tablet daily for blood pressure 07/30 TELMISARTAN 29356847212 Active Adriana Davalos RN Active MICARDIS HCT 80-12.5 MG ORAL TABLET 1 qd TELMISARTAN-HCTZ 59286674578 No Longer Active Bertrand Patel DO Active CINNAMON ALPHA LIPOIC AC CMPLX CAPSULE by mouth twice a day in AM by mouth twice a day in PM ALPHA LIPOIC ICAB-HU-GKIBLMGH CA PS 99765808359 No Longer Active Bertrand Patel DO Active AZITHROMYCIN 500 MG INTRAVENOUS SOLUTION RECONSTITUTED 1 po q da y AZITHROMYCIN 89431259338 No Longer Active Bertrand Patel DO A ctive CYMBALTA 30 MG ORAL CAPSULE DELAYED RELEASE PARTICLES 1 cap by mouth daily DULOXETINE HCL 79619456106 No Longer Active Bertrand marquez DO Active CYMBALTA 60 MG ORAL CAPSULE DELAYED RELEASE PARTICLES 1 cap by mouth daily DULOXETINE HCL 54351164006 Active Adriana Davalos RN Active WELLBUTRIN 75 MG ORAL TABLET 2 times daily BUPR OPION HCL 30818148201 No Longer Active Bertrand Patel DO Active PROAIR HFA 108 (90 Base) MCG/ACT INHALATION AEROSOL SO LUTION take one to two puffs po Q4-6 hour prn cough and shortness of breath ALBUTEROL SULFATE 21054672977 Active Bertrand Patel DO Active AZITHROMYCIN 250 MG ORAL TABLET take 2 po today then take 1 po days 2-5 AZITHROMYCIN 14732614594 No Longer Active Adolfo OSORIO Active PERMETHRIN 5 % EXTERNAL CREAM apply neck to toes tonig ht and then rinse off in morning. repeat at 7 days PERMETHRIN 92854063521 No Longer Active Adolfo OSORIO Active AMOXICILLIN 500 MG ORAL CAPSULE 2 po BID x 10 days 201 07/15/00 AMOXICILLIN 76597518216 No Longer Active Yoli Mercado MD PhD Acti ve INSUPEN ULTRAFIN 31G X 6 MM USE DIRECTED INSULIN PEN NEEDLE 77024232879 No Longer Active Bertrand Patel DO Active TRANSDERM-SCOP (1.5 MG) 1 MG/3DAYS TRANSDERMAL PATCH 7 2 HOUR 1 patch applied behind ear q 3 day SCOPOLAMINE BASE 63013482418 No Lo nger Active Bertrand Patel DO Active MACRODANTIN 100 MG ORAL CAPSULE one p.o. b.i.d. x2 weeks NITROFURANTOIN MACROCRYSTAL 45893308044 No Longer Active Bertrand Patel DO Active MACRODANTIN 100 MG ORAL CAPSULE one p.o. b.i.d. x2 weeks MACRODANTIN 100 MG ORAL CAPSULE 7075911 NITROFURANTOIN MACROCRYSTAL Inactive TRANSDERM-SCOP (1.5 MG) 1 [...] days PERMETHRIN 5 % EXTER NAL CREAM 170613 PERMETHRIN Inactive WELLBUTRIN 75 MG ORAL TABLET 2 times daily WELLBUTRIN 75 MG ORAL TABLET BUPROPION HCL Inactive CYMBALTA 30 MG ORAL CAPSULE DELAYED RELEASE PARTICLES 1 cap by mouth daily CYMBALTA 30 MG ORAL CAPSULE DELAYED RELE ASE PARTICLES 880241 DULOXETINE HCL Inactive AZITHROMYCIN 500 MG INTRAVENOUS SOLUTION RECONSTITUTED 1 po q da y AZITHROMYCIN 500 MG INTRAVENOUS SOLUTION RECONSTITUTED 03320 195650 AZITHROMYCIN Inactive CINNAMON ALPHA LIPOIC AC CMPLX CAPSULE by mouth twice a day in AM by mouth twice a day in PM CINNAMON ALPHA LIPOIC AC CMPLX CAPSULE ALPHA LIPOIC [id number] CAPS Inactive MICARDIS HCT 80-12.5 MG ORAL TABLET 1 qd 07/30 MICARDIS HCT 80-12.5 MG ORAL TABLET 567857 TELMISARTAN-HCTZ Inactive PRAVASTATIN SODIUM 20 MG ORAL TABLET 1 tablet by mouth daily at bedtime PRAVASTATIN SODIUM 20 MG ORAL TABLET 416674 PRAVASTATIN SODIUM Inactive FUROSEMIDE 20 MG ORAL TABLET 1 pill by mouth daily if needed for edema FUROSEMIDE 20 MG ORAL TABLET 174781 FUROSEMIDE Inactive METFORMIN HCL 500 MG ORAL TABLET 1 bid METFORMIN HCL 500 MG ORAL TABLET 915000 METFORMIN HCL Inactive B-12 1000 MCG ORAL CAPSULE 1 tab daily B -12 1000 MCG ORAL CAPSULE CYANOCOBALAMIN Inactive VITAMIN E 200 UNIT ORAL CAPSULE 1 cap po qd 1 VITAMIN E 200 UNIT ORAL CAPSULE 5419147 VITAMIN E Inactive [facility] MELATONIN 5-10 MG [...] po daily AZITHROMYCIN 250 MG ORAL TABLET 454437 AZITHROMY BERNARDO Inactive SYMBICORT 160-4.5 MCG/ACT INHALATION AEROSOL 2 puffs BID 9 SYMBICORT 160-4.5 MCG/ACT INHALATION AEROSOL 6310671 BUDESONID E-FORMOTEROL FUMARATE Inactive ALBUTEROL SULFATE (2.5 MG/3ML) 0.083% INHALATION NEBUL IZATION SOLUTION one vial per nebulizer every 4-6 hours as needed ALBUTEROL SULFATE (2.5 MG/3ML) 0.083% INHALATION NEBULIZATION SOLUTION 982634 ALBUTER OL SULFATE Inactive NEBULIZER use as directed NEBULIZER NEBULI ZERS Inactive TESSALON PERLES 100 MG ORAL CAPSULE 1 tablet by mouth 3 times da juan pablo TESSALON PERLES 100 MG ORAL CAPSULE 360292 BENZONATATE Inactive CYCLOBENZAPRINE HCL 10 MG ORAL TABLET Take 1 tab TID PRN for mus triston pain CYCLOBENZAPRINE HCL 10 MG ORAL TABLET 203176 CYCLOBENZA ANUJA HCL Inactive AUGMENTIN 875-125 MG ORAL TABLET 1 po BID x 10 days 20 18/04/06 AUGMENTIN 875-125 MG ORAL TABLET AMOXICILLIN-POT CLAVULANATE Inactive BACTROBAN 2 % EXTERNAL CREAM Apply to affected area BID for up to 10 days BACTROBAN 2 % EXTERNAL CREAM MUPIROCIN CA LCIUM Inactive VITAMIN D3 53292 UNIT ORAL CAPSULE 1 pill Week x 4 mo nths for vitamin D deficiency/osteoporosis VITAMIN D3 10541 UNIT ORAL CAPSULE CHOLECALCIFEROL Inactive BENZONATATE 200 MG ORAL CAPSULE 1 three times a day as neede d for cough BENZONATATE 200 MG ORAL CAPSULE 033826 BENZONATA TE Inactive ZITHROMAX Z-MARTIN 250 MG ORAL TABLET 2 today and then 1 daily for 4 days ZITHROMAX Z-MARTIN 250 MG ORAL TABLET 497886 AZITHR OMYCIN Inactive ADDERALL 10 MG ORAL TABLET 1 tab twice daily 2 ADDERALL 10 MG ORAL TABLET 602831 AMPHETAMINE-DEXTROAMPHETAMINE Inactive LEVAQUIN 500 MG ORAL TABLET 1 tablet by mouth daily 20 21/06/28 LEVAQUIN 500 MG ORAL TABLET 892244 LEVOFLOXACIN Inactive AMOXICILLIN 500 MG ORAL CAPSULE 2 po BID x 10 days 201 07/15/00 AMOXICILLIN 500 MG ORAL CAPSULE 394120 AMOXICILLIN Inactive AZITHROMYCIN 250 MG ORAL TABLET take 2 po today then take 1 po days 2-5 AZITHROMYCIN 250 MG ORAL TABLET 314719 AZITHROMY BERNARDO Inactive LEVAQUIN 500 MG ORAL TABLET 1 pill by mouth daily 2013 LEVAQUIN 500 MG ORAL TABLET 595588 LEVOFLOXACIN Inactive AUGMENTIN 875-125 MG ORAL TABLET [...] days 08/02 PREDNISONE 20 MG ORAL TABLET 246515 PREDNISONE Inactive CIPRO 500 MG ORAL TABLET 1 tablet by mouth twice daily CIPRO 500 MG ORAL TABLET 241733 CIPROFLOXACIN HCL Inactive DOXYCYCLINE HYCLATE 100 MG ORAL CAPSULE 1 cap by mouth twice jong ly DOXYCYCLINE HYCLATE 100 MG ORAL CAPSULE 6298829 DOXYCYCL INE HYCLATE Inactive PREDNISONE 20 MG ORAL TABLET Take 3 tabs for 3 days, t hen 2 tabs for 3 days, then 1 tab for 3 days PREDNISONE 20 MG ORAL TABLET 312 615 PREDNISONE Inactive CHERATUSSIN AC 100-10 MG/5ML ORAL SYRUP 5ml po q6hr PRN Cough 20 21/03/15 CHERATUSSIN AC 100-10 MG/5ML ORAL SYRUP 833158 GUAIFENE SIN-CODEINE Inactive Vital Signs Date Name [...] Report: Comp. Metabolic Panel, Uday caraballo [facility] - Chemistry sodium, serum 140 mmol/L 162-078 1047/03/25 carbon dioxide, venous blood 33.2 mmol/L 21.0-32 [...] Report: Comp. Metabolic Panel, Lipas e [facility] - Lab Alkaline phosphatase 91 50-136 [...] negative Strep Screen Lot Number (CLIA Waived) [id number] Strep Screen Exp Date (CLIA Waived) 05/02/2020 Encounters Code Encounter Date Provider Facility CPT-30165 [id number] Vst-Est Level III 16:58:04 CDT Me nae Vazquez APRN [facility] CPT-66709 [id number] Vst-Est Level IV 14:46:36 SPLUNK DASHBOARD DEVELOPER Foster Patel [facility] CPT-78673 Level 3 Est. Patient 12:37:30 SPLUNK DASHBOARD DEVELOPER Galilea Se [facility]-97639 Level 3 Est. Patient 11:40:23 CDT Bertrand marquez [facility] CPT-55513 Level 4 Est. Patient 15:33:35 SPLUNK DASHBOARD DEVELOPER Bertrand marquez [facility] CPT-34868 Level 4 Est. Patient 12:31:54 CDT Bertrand marquez [facility] CPT-63606 Level 3 Est. Patient 11:27:00 SPLUNK DASHBOARD DEVELOPER Ike Deluna MD [facility]-19984 Level 3 Est. Patient 08:50:57 SPLUNK DASHBOARD DEVELOPER Silvia Are ll [facility]-74814 Level 3 Est. Patient 10:04:13 CDT Bertrand marquez [facility] CPT-42163 Level 4 Est. Patient 16:02:10 SPLUNK DASHBOARD DEVELOPER Silvia Are ll [facility] CPT-03399 Level 3 Est. Patient 13:04:54 SPLUNK DASHBOARD DEVELOPER Silvia Are [facility] CPT-20593 Level 3 Est. Patient 12:56:37 CDT Bertrand marquez [facility] CPT-78519 Level 3 Est. Patient 19:12:03 CDT Yoli tolbert MD PhD [facility]-73203 Level 3 Est. Patient 14:36:01 CDT Yoli tolbert MD PhD [facility] CPT-70447 Level 2 Est. Patient 08:00:22 CDT Jcarlos dc MD [facility]-21122 Level 3 Est. Patient 19:06:55 CDT Bertrand marquez [facility] CPT-77470 Level 3 Est. Patient 10:08:23 SPLUNK DASHBOARD DEVELOPER Bertrand marquez [facility]-03450 Level 3 Est. Patient 16:37:54 SPLUNK DASHBOARD DEVELOPER Bertrand marquez [facility] CPT-76269 Level 3 Est. Patient 11:31:59 SPLUNK DASHBOARD DEVELOPER Bertrand marquez [facility] CPT-75124 Level 3 Est. Patient 10:20:08 CDT Gennadot Porfirioridge jacklyn [facility] CPT-00680 Level 3 Est. Patient 13:45:20 CDT Sanket Pham ina [facility] CPT-77154 Level 3 Est. Patient 12:51:06 CDT Gennadot villasenor [facility] CPT-94343 Level 3 Est. Patient 11:22:51 SPLUNK DASHBOARD DEVELOPER Yoli tolbert MD PhD [facility] CPT-77780 Level 3 Est. Patient 13:33:19 CDT Bertrand marquez [facility] Procedures Code Procedure Name Date Entry Date Standard Desc ription CPT-63501 Venipuncture Draw Fee 16:30:28 CDT [id number]-[id number] (4274F) Influenza immunization administe red or previously received 15:55:57 CDT CPT-11328 Wound Culture - LAB USE ONLY 15:45:25 CDT 2 CPT-46568 Venipuncture Draw Fee 10:23:01 CDT CPT-J0696 Rocephin 1000 mg (Ceftriaxone) 16:20:30 SPLUNK DASHBOARD DEVELOPER CPT-84387 Abx/Therapy Injection 16:20:29 SPLUNK DASHBOARD DEVELOPER CPT-J0696 Rocephin 1gm Inj Solr 15:51:59 SPLUNK DASHBOARD DEVELOPER CPT-73432 Chest 2V Frontal and Lat 15:20:28 SPLUNK DASHBOARD DEVELOPER 07/22 CPT-96505 Breathing Tx 14:51:55 SPLUNK DASHBOARD DEVELOPER CPT-50125 Breathing Tx 09:57:16 SPLUNK DASHBOARD DEVELOPER CPT-14744 Knee comp 4/> V 11:58:06 SPLUNK DASHBOARD DEVELOPER
--- OUTSIDE RECORDS SUMMARY | 2019-11-13 09:48 | XMS REPORT | Clinical Summary ---
Author Author Admin, Enrique Adamson Organization [employer] ([employer]) Address Unknown Phone Unavailable Allergies, Adverse Reactions, [...] 462 Active Silvia Vazquez APRN Acute pharyngitis HEALTH SCREENING ICD-V70.0 Inactive Yoli sabillon MD PhD SCABIES ICD-133.0 Inactive Yoli Mercado MD PhD 201 07/14/20 DIABETES ICD-V18.0 Inactive Yoli Mercado MD PhD 20 14/02/29 SINUSITIS, FRONTAL, ACUTE ICD-461.1 Inactive Yoli Mercado MD PhD COUGH ICD-786.2 Inactive Yoli Mercado MD PhD 201 09/09/28 EDEMA LEG ICD-782.3 Inactive Adele Feldman PROJECTOR BOOTH OPERATOR 201 01/01/02 SHORTNESS OF BREATH ICD-786.05 Inactive Yoli Mercado MD PhD RIB PAIN, RIGHT SIDED ICD-786.50 Inactive Yoli Mercado MD PhD KNEE PAIN, RIGHT ICD-719.46 Inactive Adele Alexusu ghn PROJECTOR BOOTH OPERATOR Knee pain, left ICD-719.46 Inactive Adele Alexusug hn PROJECTOR BOOTH OPERATOR Pharyngitis-Acute ICD-462 Inactive Bertrand Redmond DO Polyuria ICD-788.42 Inactive Yoli Mercado MD P Cellulitis, leg, right ICD-682.6 Inactive Yuki Deluna MD Foreign body, ear ICD-931 Inactive Yoli salazar MD PhD Fatigue ICD-780.79 Inactive Ike Deluna MD 201 12/01/06 Headache ICD-784.0 Inactive Adele Feldman PROJECTOR BOOTH OPERATOR 2017 Cough ICD-786.2 Inactive Adele Feldman PROJECTOR BOOTH OPERATOR 06/04 SINUSITIS, ACUTE ICD-461.9 Inactive Ike lange MD Fatigue ICD-780.79 Inactive Adele Feldman PROJECTOR BOOTH OPERATOR 2017 Bronchitis acute with bronchospasm ICD-466.0 I nactive Bertrand Patel DO Animal bite ICD-919.8 Inactive Adele Feldman LP N Mycoplasma infection ICD-041.81 Inactive Anit a Feldman PROJECTOR BOOTH OPERATOR Amenorrhea, secondary ICD-626.0 Inactive Clotilde Feldman LPN Left maxillary sinusitis ICD-473.0 Inactive Bertrand Patel DO Medication List Medication Instructions Start Date Stop Date Generic Name ND Status Provider Patient Instruction TELMISARTAN 80 MG TABS 1 TABLET PO DAILY FOR BLOOD PRESSURE TELMISARTAN 26926753649 Active Adriana Davalos RN Active MODAFINIL 200 MG TABS 1/2 TABLET PO IN THE AM AND 1/2 TABLET AT NOON MODAFINIL 67071889609 Active Adriana Davalos RN Activ e DULOXETINE HCL 60 MG CPEP 1 CAPSULE PO DAILY DU LOXETINE HCL 22075127582 Active Adriana Davalos RN Active AMLODIPINE 5MG 1 TABLET PO DAILY FOR BLOOD PRESSURE AMLODIPINE BESYLATE 32213673238 Active Adriana Davalos RN Active ALPRAZOLAM 0.5 MG TABS TAKE 1 TABLET BY MOUTH THREE TIMES DAILY 201 02/10/05 ALPRAZOLAM 95529773466 Active Adriana Davalos RN Active SUDAFED 12 HOUR 120 MG ORAL TABLET EXTENDED RELEASE 12 HOUR 1 pill twice daily if for congestion PSEUDOEPHEDRINE HCL 71637109670 Active Silvia Vazquez APRN Active CHERATUSSIN AC 100-10 MG/5ML ORAL SYRUP 5ml po q6hr PRN Cough 20 21/03/15 GUAIFENESIN-CODEINE 91581344736 No Longer Active Silvia Vazquez APRN Active FLUTICASONE PROPIONATE 50 MCG/ACT NASAL SUSPENSION 2 s prays per nostril daily for 2 weeks, then 1 spray each nostril PRN FLUTI CASONE PROPIONATE 01276224146 Active Silvia Vazquez APRN Active HYDROCODONE-ACETAMINOPHEN 7.5-325 MG TABS TAKE 1 TABLE T BY MOUTH EVERY SIX HOURS NEEDED FOR PAIN HYDROCODONE-ACETAMINOPHEN 91851942854 A ctive Adele Feldman LPN Active EVENING PRIMROSE OIL 1000 MG ORAL CAPSULE 1 capsule once daily EVENING PRIMROSE OIL 59325439901 Active Bertrand Patel DO Active LEVAQUIN 500 MG ORAL TABLET 1 tablet by mouth daily 21/06/28 LEVOFLOXACIN 07205904048 No Longer Active Bertrand Patel DO Active PREDNISONE 20 MG ORAL TABLET Take 3 tabs for 3 days, t hen 2 tabs for 3 days, then 1 tab for 3 days PREDNISONE 50548124629 No Rainer fatou Active Galilea Sell SENIOR DIRECTOR FINANCE Active DOXYCYCLINE HYCLATE 100 MG ORAL CAPSULE 1 cap by mouth twice jong ly DOXYCYCLINE HYCLATE 49926072749 No Longer Active Galilea Sell SENIOR DIRECTOR FINANCE Active ADDERALL 10 MG ORAL TABLET 1 tab twice daily 2 AMPHETAMINE-DEXTROAMPHETAMINE 25986303148 No Longer Active Nitza Phi llips Scribe Active ZITHROMAX Z-MARTIN 250 MG ORAL TABLET 2 today and then 1 daily for 4 days AZITHROMYCIN 92175094840 No Longer Active Nitza Osman lips Scribe Active BENZONATATE 200 MG ORAL CAPSULE 1 three times a day as neede d for cough BENZONATATE 44141610695 No Longer Active Nitza Osman lips Scribe Active VITAMIN D3 43216 UNIT ORAL CAPSULE 1 pill Week x 4 mo nths for vitamin D deficiency/osteoporosis CHOLECALCIFEROL 35539598489 N o Longer Active Layla Garcia Active BACTROBAN 2 % EXTERNAL CREAM Apply to affected area BID for up to 10 days MUPIROCIN CALCIUM 61908007683 No Longer Active Ike Deluna MD Active CIPRO 500 MG ORAL TABLET 1 tablet by mouth twice daily CIPROFLOXACIN HCL 27372600125 No Longer Active Adriana Bender LPN Active AUGMENTIN 875-125 MG ORAL TABLET 1 po BID x 10 days 20 18/04/06 AMOXICILLIN-POT CLAVULANATE 25025944850 No Longer Active Adriana Bender LPN Active CYCLOBENZAPRINE HCL 10 MG ORAL TABLET Take 1 tab TID PRN for mus triston pain CYCLOBENZAPRINE HCL 02366572059 No Longer Active Bertrand Patel DO Active TESSALON PERLES 100 MG ORAL CAPSULE 1 tablet by mouth 3 times da juan pablo BENZONATATE 66702925769 No Longer Active Bertrand Patel DO Ac tive NEBULIZER use as directed NEBULIZERS 60739802431 No Longer Active Bertrand Patel DO Active ALBUTEROL SULFATE (2.5 MG/3ML) 0.083% INHALATION NEBUL IZATION SOLUTION one vial per nebulizer every 4-6 hours as needed ALBUTERO L SULFATE 62075808838 No Longer Active Bertrand Patel DO Active SYMBICORT 160-4.5 MCG/ACT INHALATION AEROSOL 2 puffs BID 9 BUDESONIDE-FORMOTEROL FUMARATE 96437770498 No Longer Active Bertrand Patel DO Active PREDNISONE 20 MG ORAL TABLET take 3 tabs daily for 3 d ays, 2 tabs daily for 3 days, 1 tab daily for 3 days, 1/2 tab daily for 3 days 08/02 PREDNISONE 99399262283 No Longer Active Silvia Arekalin TOVARN Active AZITHROMYCIN 250 MG ORAL TABLET Take 2 tabs po today then 1 tab po daily AZITHROMYCIN 43403573159 No Longer Active Silvia Arell SENIOR DIRECTOR FINANCE Active AUGMENTIN 875-125 MG ORAL TABLET 1 po BID x 10 days 20 19/07/13 AMOXICILLIN-POT CLAVULANATE 96942697300 No Longer Active Adriana Bender LPN Active CHEWABLE CALCIUM 500-200-40 MG-UNT-MCG ORAL TABLET CHEWABLE 1 chew tab bid CALCIUM-VITAMIN D-VITAMIN K 06568013626 Active Silvia Are ll SENIOR DIRECTOR FINANCE Active EQ COMPLETE MULTIVIT ADULT 50+ ORAL TABLET 1 tab po bid MULTIPLE VITAMINS-MINERALS 83891800075 Active Silvia Arell SENIOR DIRECTOR FINANCE Active LORTAB 7.5-500 MG ORAL TABLET take one po Q6 hours 201 09/12/01 HYDROCODONE-ACETAMINOPHEN 04599217270 No Longer Active Nirmal Robbins RN Active [facility] MELATONIN 5-10 MG ORAL TABLET EXTENDED RELEASE Jair e one by mouth daily at bedtime MELATONIN-PYRIDOXINE 42097918238 No Longer Acti ve Bertrand W Jorge DO Active VITAMIN E 200 UNIT ORAL CAPSULE 1 cap po qd VITAM IN E 04091828514 No Longer Active Bertrand Patel DO Active B-12 1000 MCG ORAL CAPSULE 1 tab daily CYANOCOB ALAMIN 72855660230 No Longer Active Bertrand Patel DO Active METFORMIN HCL 500 MG ORAL TABLET 1 bid METFOR MIN HCL 73929973831 No Longer Active Bertrand Patel DO Active FUROSEMIDE 20 MG ORAL TABLET 1 pill by mouth daily if needed for edema FUROSEMIDE 26131045254 No Longer Active Bertrand Patel DO Active PRAVASTATIN SODIUM 20 MG ORAL TABLET 1 tablet by mouth daily at bedtime PRAVASTATIN SODIUM 89068510520 No Longer Active Bertrand Patel DO Active AUGMENTIN 875-125 MG ORAL TABLET 1 pill by mouth twice daily 201 09/10/00 AMOXICILLIN-POT CLAVULANATE 97589402990 No Longer Active Yoli Mercado MD PhD Active LEVAQUIN 500 MG ORAL TABLET 1 pill by mouth daily 2013 LEVOFLOXACIN 87358666636 No Longer Active Yoli Mercado MD PhD Acti ve MICARDIS 80 MG ORAL TABLET 1 tablet daily for blood pressure 07/30 TELMISARTAN 44957209981 Active Adriana Davalos RN Active MICARDIS HCT 80-12.5 MG ORAL TABLET 1 qd TELMISARTAN-HCTZ 02695830888 No Longer Active Bertrand Patel DO Active CINNAMON ALPHA LIPOIC AC CMPLX CAPSULE by mouth twice a day in AM by mouth twice a day in PM ALPHA LIPOIC [id number] CA PS 95551030471 No Longer Active Bertrand Patel DO Active AZITHROMYCIN 500 MG INTRAVENOUS SOLUTION RECONSTITUTED 1 po q da y AZITHROMYCIN 46816384233 No Longer Active Bertrand Patel DO A ctive CYMBALTA 30 MG ORAL CAPSULE DELAYED RELEASE PARTICLES 1 cap by mouth daily DULOXETINE HCL 05586915326 No Longer Active Bertrand marquez DO Active CYMBALTA 60 MG ORAL CAPSULE DELAYED RELEASE PARTICLES 1 cap by mouth daily DULOXETINE HCL 16734868575 Active Adirana Davalos RN Active WELLBUTRIN 75 MG ORAL TABLET 2 times daily BUPR OPION HCL 49123312179 No Longer Active Bertrand Patel DO Active PROAIR HFA 108 (90 Base) MCG/ACT INHALATION AEROSOL SO LUTION take one to two puffs po Q4-6 hour prn cough and shortness of breath ALBUTEROL SULFATE 47329579924 Active Bertrand Patel DO Active AZITHROMYCIN 250 MG ORAL TABLET take 2 po today then take 1 po days 2-5 AZITHROMYCIN 64318198799 No Longer Active Adolfo OSORIO Active PERMETHRIN 5 % EXTERNAL CREAM apply neck to toes tonig ht and then rinse off in morning. repeat at 7 days PERMETHRIN 36051279897 No Longer Active Adolfo OSORIO Active AMOXICILLIN 500 MG ORAL CAPSULE 2 po BID x 10 days 201 07/15/00 AMOXICILLIN 59228116966 No Longer Active Yoli Mercado MD PhD Acti ve INSUPEN ULTRAFIN 31G X 6 MM USE DIRECTED INSULIN PEN NEEDLE 47447352200 No Longer Active Bertrand Patel DO Active TRANSDERM-SCOP (1.5 MG) 1 MG/3DAYS TRANSDERMAL PATCH 7 2 HOUR 1 patch applied behind ear q 3 day SCOPOLAMINE BASE 62054442177 No Lo nger Active Bertrand Patel DO Active MACRODANTIN 100 MG ORAL CAPSULE one p.o. b.i.d. x2 weeks NITROFURANTOIN MACROCRYSTAL 99575831935 No Longer Active Bertrand Patel DO Active MACRODANTIN 100 MG ORAL CAPSULE one p.o. b.i.d. x2 weeks MACRODANTIN 100 MG ORAL CAPSULE 7159525 NITROFURANTOIN MACROCRYSTAL Inactive TRANSDERM-SCOP (1.5 MG) 1 [...] days PERMETHRIN 5 % EXTER NAL CREAM 855212 PERMETHRIN Inactive WELLBUTRIN 75 MG ORAL TABLET 2 times daily WELLBUTRIN 75 MG ORAL TABLET BUPROPION HCL Inactive CYMBALTA 30 MG ORAL CAPSULE DELAYED RELEASE PARTICLES 1 cap by mouth daily CYMBALTA 30 MG ORAL CAPSULE DELAYED RELE ASE PARTICLES 711469 DULOXETINE HCL Inactive AZITHROMYCIN 500 MG INTRAVENOUS SOLUTION RECONSTITUTED 1 po q da y AZITHROMYCIN 500 MG INTRAVENOUS SOLUTION RECONSTITUTED 09911 831595 AZITHROMYCIN Inactive CINNAMON ALPHA LIPOIC AC CMPLX CAPSULE by mouth twice a day in AM by mouth twice a day in PM CINNAMON ALPHA LIPOIC AC CMPLX CAPSULE ALPHA LIPOIC [id number] CAPS Inactive MICARDIS HCT 80-12.5 MG ORAL TABLET 1 qd 07/30 MICARDIS HCT 80-12.5 MG ORAL TABLET 024299 TELMISARTAN-HCTZ Inactive PRAVASTATIN SODIUM 20 MG ORAL TABLET 1 tablet by mouth daily at bedtime PRAVASTATIN SODIUM 20 MG ORAL TABLET 406337 PRAVASTATIN SODIUM Inactive FUROSEMIDE 20 MG ORAL TABLET 1 pill by mouth daily if needed for edema FUROSEMIDE 20 MG ORAL TABLET 736417 FUROSEMIDE Inactive METFORMIN HCL 500 MG ORAL TABLET 1 bid METFORMIN HCL 500 MG ORAL TABLET 054213 METFORMIN HCL Inactive B-12 1000 MCG ORAL CAPSULE 1 tab daily B -12 1000 MCG ORAL CAPSULE CYANOCOBALAMIN Inactive VITAMIN E 200 UNIT ORAL CAPSULE 1 cap po qd 1 VITAMIN E 200 UNIT ORAL CAPSULE 1790840 VITAMIN E Inactive [facility] MELATONIN 5-10 MG [...] po daily AZITHROMYCIN 250 MG ORAL TABLET 381108 AZITHROMY BERNARDO Inactive SYMBICORT 160-4.5 MCG/ACT INHALATION AEROSOL 2 puffs BID 9 SYMBICORT 160-4.5 MCG/ACT INHALATION AEROSOL BUDESONIDE-FORM OTEROL FUMARATE Inactive ALBUTEROL SULFATE (2.5 MG/3ML) 0.083% INHALATION NEBUL IZATION SOLUTION one vial per nebulizer every 4-6 hours as needed ALBUTEROL SULFATE (2.5 MG/3ML) 0.083% INHALATION NEBULIZATION SOLUTION 169278 ALBUTER OL SULFATE Inactive NEBULIZER use as directed NEBULIZER NEBULI ZERS Inactive TESSALON PERLES 100 MG ORAL CAPSULE 1 tablet by mouth 3 times da juan pablo TESSALON PERLES 100 MG ORAL CAPSULE 643001 BENZONATATE Inactive CYCLOBENZAPRINE HCL 10 MG ORAL TABLET Take 1 tab TID PRN for mus triston pain CYCLOBENZAPRINE HCL 10 MG ORAL TABLET 110784 CYCLOBENZA ANUJA HCL Inactive AUGMENTIN 875-125 MG ORAL TABLET 1 po BID x 10 days 20 18/04/06 AUGMENTIN 875-125 MG ORAL TABLET AMOXICILLIN-POT CLAVULANATE Inactive BACTROBAN 2 % EXTERNAL CREAM Apply to affected area BID for up to 10 days BACTROBAN 2 % EXTERNAL CREAM MUPIROCIN CA LCIUM Inactive VITAMIN D3 95478 UNIT ORAL CAPSULE 1 pill Week x 4 mo nths for vitamin D deficiency/osteoporosis VITAMIN D3 71837 UNIT ORAL CAPSULE CHOLECALCIFEROL Inactive BENZONATATE 200 MG ORAL CAPSULE 1 three times a day as neede d for cough BENZONATATE 200 MG ORAL CAPSULE 005493 BENZONATA TE Inactive ZITHROMAX Z-MARTIN 250 MG ORAL TABLET 2 today and then 1 daily for 4 days ZITHROMAX Z-MARTIN 250 MG ORAL TABLET 508222 AZITHR OMYCIN Inactive ADDERALL 10 MG ORAL TABLET 1 tab twice daily 2 ADDERALL 10 MG ORAL TABLET 878420 AMPHETAMINE-DEXTROAMPHETAMINE Inactive LEVAQUIN 500 MG ORAL TABLET 1 tablet by mouth daily 21/06/28 LEVAQUIN 500 MG ORAL TABLET 216344 LEVOFLOXACIN Inactive AMOXICILLIN 500 MG ORAL CAPSULE 2 po BID x 10 days 201 07/15/00 AMOXICILLIN 500 MG ORAL CAPSULE 164718 AMOXICILLIN Inactive AZITHROMYCIN 250 MG ORAL TABLET take 2 po today then take 1 po days 2-5 AZITHROMYCIN 250 MG ORAL TABLET 434779 AZITHROMY BERNARDO Inactive LEVAQUIN 500 MG ORAL TABLET 1 pill by mouth daily 2013 LEVAQUIN 500 MG ORAL TABLET 391630 LEVOFLOXACIN Inactive AUGMENTIN 875-125 MG ORAL TABLET [...] days 08/02 PREDNISONE 20 MG ORAL TABLET 988954 PREDNISONE Inactive CIPRO 500 MG ORAL TABLET 1 tablet by mouth twice daily CIPRO 500 MG ORAL TABLET 128856 CIPROFLOXACIN HCL Inactive DOXYCYCLINE HYCLATE 100 MG ORAL CAPSULE 1 cap by mouth twice jong ly DOXYCYCLINE HYCLATE 100 MG ORAL CAPSULE 9295863 DOXYCYCL INE HYCLATE Inactive PREDNISONE 20 MG ORAL TABLET Take 3 tabs for 3 days, t hen 2 tabs for 3 days, then 1 tab for 3 days PREDNISONE 20 MG ORAL TABLET 312 615 PREDNISONE Inactive CHERATUSSIN AC 100-10 MG/5ML ORAL SYRUP 5ml po q6hr PRN Cough 20 21/03/15 CHERATUSSIN AC 100-10 MG/5ML ORAL SYRUP 154848 GUAIFENE SIN-CODEINE Inactive Vital Signs Date Name [...] negative Strep Screen Lot Number (CLIA Waived) [id number] Strep Screen Exp Date (CLIA Waived) 05/02/2020 Encounters Code Encounter Date Provider Facility CPT-69432 [id number] Vst-Est Level III 16:58:04 CDT Me nae Vazquez [facility]-56189 [id number] Vst-Est Level IV 14:46:36 CONSULTING SOFTWARE ENGINEER Foster Patel [facility] CPT-07656 Level 3 Est. Patient 12:37:30 CONSULTING SOFTWARE ENGINEER Galilea gagnon [facility] CPT-39906 Level 3 Est. Patient 11:40:23 CDT Bertrand marquez [facility] CPT-56912 Level 4 Est. Patient 15:33:35 CONSULTING SOFTWARE ENGINEER Bertrand marquez [facility] CPT-92231 Level 4 Est. Patient 12:31:54 CDT Bertrand marquez [facility] CPT-18741 Level 3 Est. Patient 11:27:00 CONSULTING SOFTWARE ENGINEER Ike Deluna MD [facility] CPT-49010 Level 3 Est. Patient 08:50:57 CONSULTING SOFTWARE ENGINEER Silvia Are ll [facility] CPT-88157 Level 3 Est. Patient 10:04:13 CDT Bertrand marquez [facility] CPT-26348 Level 4 Est. Patient 16:02:10 CONSULTING SOFTWARE ENGINEER Silvia Are ll [facility] CPT-94834 Level 3 Est. Patient 13:04:54 CONSULTING SOFTWARE ENGINEER Silvia Are [facility] CPT-72743 Level 3 Est. Patient 12:56:37 CDT Bertrand marquez [facility] CPT-71994 Level 3 Est. Patient 19:12:03 CDT Yoli tolbert MD PhD [facility] CPT-95898 Level 3 Est. Patient 14:36:01 CDT Yoli tolbert MD [facility] CPT-99037 Level 2 Est. Patient 08:00:22 CDT Jcarlos dc MD [facility] CPT-96981 Level 3 Est. Patient 19:06:55 CDT Bertrand marquez [facility] CPT-48695 Level 3 Est. Patient 10:08:23 CONSULTING SOFTWARE ENGINEER Bertrand marquez [facility] CPT-47942 Level 3 Est. Patient 16:37:54 CONSULTING SOFTWARE ENGINEER Bertrand marquez [facility] CPT-83504 Level 3 Est. Patient 11:31:59 CONSULTING SOFTWARE ENGINEER Bertrand marquez [facility] CPT-40784 Level 3 Est. Patient 10:20:08 CDT Adolfo villasenor [facility] CPT-66661 Level 3 Est. Patient 13:45:20 CDT Sanket buckley [facility] CPT-25195 Level 3 Est. Patient 12:51:06 CDT Adolfo villasenor [facility] CPT-01721 Level 3 Est. Patient 11:22:51 CONSULTING SOFTWARE ENGINEER Yoli tolbert MD PhD [facility] CPT-98188 Level 3 Est. Patient 13:33:19 CDT Bertrand Sabillon ee DO [facility] Procedures Code Procedure Name Date Entry Date Standard Desc ription CPT-18397 Wound Culture - LAB USE ONLY 15:45:25 CDT 2 CPT-60556 Venipuncture Draw Fee 10:23:01 CDT CPT-J0696 Rocephin 1000 mg (Ceftriaxone) 16:20:30 CONSULTING SOFTWARE ENGINEER CPT-30675 Abx/Therapy Injection 16:20:29 CONSULTING SOFTWARE ENGINEER CPT-J0696 Rocephin 1gm Inj Solr 15:51:59 CONSULTING SOFTWARE ENGINEER CPT-53869 Chest 2V Frontal and Lat 15:20:28 CONSULTING SOFTWARE ENGINEER 07/22 CPT-91566 Breathing Tx 14:51:55 CONSULTING SOFTWARE ENGINEER CPT-45177 Breathing Tx 09:57:16 CONSULTING SOFTWARE ENGINEER CPT-96148 Knee comp 4/> V 11:58:06 CONSULTING SOFTWARE ENGINEER
--- OUTSIDE RECORDS SUMMARY | 2019-11-13 09:48 | XMS REPORT | Clinical Summary ---
Author Author Admin, Enrique Adamson Organization [facility] Address Unknown Phone Unavailable Allergies, Adverse Reactions, [...] malaise and fatigue Headache 784.0 Resolved Nitza Liuibe Headache Cough 786.2 Resolved Nitza Liuibe Cough SINUSITIS, ACUTE 461.9 Resolved Ike Deluna MD Acute sinusitis, unspecified Fatigue 780.79 Resolved Nitza Liuibe Other malaise and fatigue Bronchitis acute with bronchospasm 466.0 Resolved 2 Nitza Russelle Acute bronchitis Bronchitis acute with [...] 09/09/28 EDEMA LEG ICD-782.3 Inactive Adele Feldman AIR QUALITY SPECIALIST 201 01/01/02 SHORTNESS OF BREATH ICD-786.05 Inactive Yoli Mercado MD PhD RIB PAIN, RIGHT SIDED ICD-786.50 Inactive Yoli Mercado MD PhD KNEE PAIN, RIGHT ICD-719.46 Inactive Adele Vau ghn AIR QUALITY SPECIALIST Knee pain, left ICD-719.46 Inactive Adele Alexusug hn AIR QUALITY SPECIALIST Pharyngitis-Acute ICD-462 Inactive Bertrand Redmond DO Polyuria ICD-788.42 Inactive Yoli Mercado MD P Cellulitis, leg, right ICD-682.6 Inactive Yuki Deluna MD Foreign body, ear ICD-931 Inactive Yoli salazar MD PhD Fatigue ICD-780.79 Inactive Ike Deluna MD 201 12/01/06 Headache ICD-784.0 Inactive Adele Feldman AIR QUALITY SPECIALIST 2017 Cough ICD-786.2 Inactive Adele Feldman AIR QUALITY SPECIALIST 06/04 SINUSITIS, ACUTE ICD-461.9 Inactive Ike lange MD Fatigue ICD-780.79 Inactive Adele Feldman AIR QUALITY SPECIALIST 2017 Bronchitis acute with bronchospasm ICD-466.0 I nactive Bertrand Patel DO Animal bite ICD-919.8 Inactive Adele Feldman LP N Mycoplasma infection ICD-041.81 Inactive Anit a Feldman AIR QUALITY SPECIALIST Amenorrhea, secondary ICD-626.0 Inactive Ani ta Feldman AIR QUALITY SPECIALIST Left maxillary sinusitis ICD-473.0 Inactive Bertrand Patel DO Medication List Medication Instructions Start Date Stop Date Generic Name ND Status Provider Patient Instruction HYDROCODONE-ACETAMINOPHEN 7.5-325 MG TABS 1 TAB EVERY 6 HOUR S PRN FOR PAIN HYDROCODONE-ACETAMINOPHEN 83636442875 Active Bertrand Patel DO Active TELMISARTAN 80 MG TABS 1 TABLET PO DAILY FOR BLOOD PRESSURE TELMISARTAN 21675199948 Active Adriana Davalos RN Active MODAFINIL 200 MG TABS 1/2 TABLET PO IN THE AM AND 1/2 TABLET AT NOON MODAFINIL 11377027030 Active Adriana Davalos RN Activ e DULOXETINE HCL 60 MG CPEP 1 CAPSULE PO DAILY DU LOXETINE HCL 58979355242 Active Adriana Davalos RN Active AMLODIPINE 5MG 1 TABLET PO DAILY FOR BLOOD PRESSURE AMLODIPINE BESYLATE 97013349400 Active Adriana Davalos RN Active ALPRAZOLAM 0.5 MG TABS TAKE 1 TABLET BY MOUTH THREE TIMES DAILY 201 02/10/05 ALPRAZOLAM 21933378455 Active Adriana Davalos RN Active SUDAFED 12 HOUR 120 MG ORAL TABLET EXTENDED RELEASE 12 HOUR 1 pill twice daily if for congestion PSEUDOEPHEDRINE HCL 46991466341 Active Silvia Vazquez VETERINARY ASSISTANT TECHNICIAN Active CHERATUSSIN AC 100-10 MG/5ML ORAL SYRUP 5ml po q6hr PRN Cough 20 21/03/15 GUAIFENESIN-CODEINE 86854636538 No Longer Active Silvia Arell VETERINARY ASSISTANT TECHNICIAN Active FLUTICASONE PROPIONATE 50 MCG/ACT NASAL SUSPENSION 2 s prays per nostril daily for 2 weeks, then 1 spray each nostril PRN FLUTI CASONE PROPIONATE 39026953395 Active Silvia Arell VETERINARY ASSISTANT TECHNICIAN Active EVENING PRIMROSE OIL 1000 MG ORAL CAPSULE 1 capsule once daily EVENING PRIMROSE OIL 14952585627 Active Bertrand Patel DO Active LEVAQUIN 500 MG ORAL TABLET 1 tablet by mouth daily 20 21/06/28 LEVOFLOXACIN 18000014721 No Longer Active Bertrand Patel DO Active PREDNISONE 20 MG ORAL TABLET Take 3 tabs for 3 days, t hen 2 tabs for 3 days, then 1 tab for 3 days PREDNISONE 10262290144 No Rainer fatou Active Galilea Sell VETERINARY ASSISTANT TECHNICIAN Active DOXYCYCLINE HYCLATE 100 MG ORAL CAPSULE 1 cap by mouth twice jong ly DOXYCYCLINE HYCLATE 98830921906 No Longer Active Galilea Sell VETERINARY ASSISTANT TECHNICIAN Active ADDERALL 10 MG ORAL TABLET 1 tab twice daily 2 AMPHETAMINE-DEXTROAMPHETAMINE 67746978642 No Longer Active Nitza Phi llips Scribe Active ZITHROMAX Z-MARTIN 250 MG ORAL TABLET 2 today and then 1 daily for 4 days AZITHROMYCIN 63134424296 No Longer Active Nitza Osman lips Scribe Active BENZONATATE 200 MG ORAL CAPSULE 1 three times a day as neede d for cough BENZONATATE 98140293497 No Longer Active Nitza Osman lips Scribe Active VITAMIN D3 79693 UNIT ORAL CAPSULE 1 pill Week x 4 mo nths for vitamin D deficiency/osteoporosis CHOLECALCIFEROL 02888133751 N o Longer Active Layla Garcia Active BACTROBAN 2 % EXTERNAL CREAM Apply to affected area BID for up to 10 days MUPIROCIN CALCIUM 49941549946 No Longer Active Ike Deluna MD Active CIPRO 500 MG ORAL TABLET 1 tablet by mouth twice daily CIPROFLOXACIN HCL 40813665514 No Longer Active Adriana Bender LPN Active AUGMENTIN 875-125 MG ORAL TABLET 1 po BID x 10 days 20 18/04/06 AMOXICILLIN-POT CLAVULANATE 91355048612 No Longer Active Adriana Bender LPN Active CYCLOBENZAPRINE HCL 10 MG ORAL TABLET Take 1 tab TID PRN for mus triston pain CYCLOBENZAPRINE HCL 68518816665 No Longer Active Bertrand Patel DO Active TESSALON PERLES 100 MG ORAL CAPSULE 1 tablet by mouth 3 times da juan pablo BENZONATATE 14286900859 No Longer Active Bertrand Patel DO Ac tive NEBULIZER use as directed NEBULIZERS 84084673781 No Longer Active Bertrand Patel DO Active ALBUTEROL SULFATE (2.5 MG/3ML) 0.083% INHALATION NEBUL IZATION SOLUTION one vial per nebulizer every 4-6 hours as needed ALBUTERO L SULFATE 44295797043 No Longer Active Bertrand Patel DO Active SYMBICORT 160-4.5 MCG/ACT INHALATION AEROSOL 2 puffs BID 9 BUDESONIDE-FORMOTEROL FUMARATE 32447587488 No Longer Active Bertrand Patel DO Active PREDNISONE 20 MG ORAL TABLET take 3 tabs daily for 3 d ays, 2 tabs daily for 3 days, 1 tab daily for 3 days, 1/2 tab daily for 3 days 08/02 PREDNISONE 76275569152 No Longer Active Silvia Arell VETERINARY ASSISTANT TECHNICIAN Active AZITHROMYCIN 250 MG ORAL TABLET Take 2 tabs po today then 1 tab po daily AZITHROMYCIN 24728857913 No Longer Active Silvia Arell VETERINARY ASSISTANT TECHNICIAN Active AUGMENTIN 875-125 MG ORAL TABLET 1 po BID x 10 days 20 19/07/13 AMOXICILLIN-POT CLAVULANATE 36073571660 No Longer Active Adriana Bender LPN Active CHEWABLE CALCIUM 500-200-40 MG-UNT-MCG ORAL TABLET CHEWABLE 1 chew tab bid CALCIUM-VITAMIN D-VITAMIN K 63756985885 Active Silvia Are ll VETERINARY ASSISTANT TECHNICIAN Active EQ COMPLETE MULTIVIT ADULT 50+ ORAL TABLET 1 tab po bid MULTIPLE VITAMINS-MINERALS 56548236576 Active Silvia Arell VETERINARY ASSISTANT TECHNICIAN Active LORTAB 7.5-500 MG ORAL TABLET take one po Q6 hours 201 09/12/01 HYDROCODONE-ACETAMINOPHEN 57974012583 No Longer Active Nirmal Robbins RN Active [facility] MELATONIN 5-10 MG ORAL TABLET EXTENDED RELEASE Jair e one by mouth daily at bedtime MELATONIN-PYRIDOXINE 11208227555 No Longer Acti ve Bertrand Patel DO Active VITAMIN E 200 UNIT ORAL CAPSULE 1 cap po qd VITAM IN E 29325891719 No Longer Active Bertrand Patel DO Active B-12 1000 MCG ORAL CAPSULE 1 tab daily CYANOCOB ALAMIN 06246177912 No Longer Active Bertrand Patel DO Active METFORMIN HCL 500 MG ORAL TABLET 1 bid METFOR MIN HCL 38343946985 No Longer Active Bertrand Patel DO Active FUROSEMIDE 20 MG ORAL TABLET 1 pill by mouth daily if needed for edema FUROSEMIDE 60796382984 No Longer Active Bertrand Patel DO Active PRAVASTATIN SODIUM 20 MG ORAL TABLET 1 tablet by mouth daily at bedtime PRAVASTATIN SODIUM 59255915896 No Longer Active Bertrand Patel DO Active AUGMENTIN 875-125 MG ORAL TABLET 1 pill by mouth twice daily 201 09/10/00 AMOXICILLIN-POT CLAVULANATE 50524439934 No Longer Active Yoli Mercado MD PhD Active LEVAQUIN 500 MG ORAL TABLET 1 pill by mouth daily 2013 LEVOFLOXACIN 93668636646 No Longer Active Yoli Mercado MD PhD Acti ve MICARDIS 80 MG ORAL TABLET 1 tablet daily for blood pressure 07/30 TELMISARTAN 80592129220 Active Adriana Davalos RN Active MICARDIS HCT 80-12.5 MG ORAL TABLET 1 qd TELMISARTAN-HCTZ 67509011422 No Longer Active Bertrand Patel DO Active CINNAMON ALPHA LIPOIC AC CMPLX CAPSULE by mouth twice a day in AM by mouth twice a day in PM ALPHA LIPOIC [id number] CA PS 07069494482 No Longer Active Bertrand Patel DO Active AZITHROMYCIN 500 MG INTRAVENOUS SOLUTION RECONSTITUTED 1 po q da y AZITHROMYCIN 11102477306 No Longer Active Bertrand Patel DO A ctive CYMBALTA 30 MG ORAL CAPSULE DELAYED RELEASE PARTICLES 1 cap by mouth daily DULOXETINE HCL 75219892878 No Longer Active Bertrand marquez DO Active CYMBALTA 60 MG ORAL CAPSULE DELAYED RELEASE PARTICLES 1 cap by mouth daily DULOXETINE HCL 43665411714 Active Adriana Davalos RN Active WELLBUTRIN 75 MG ORAL TABLET 2 times daily BUPR OPION HCL 60696665518 No Longer Active Bertrand Patel DO Active PROAIR HFA 108 (90 Base) MCG/ACT INHALATION AEROSOL SO LUTION take one to two puffs po Q4-6 hour prn cough and shortness of breath ALBUTEROL SULFATE 73874618644 Active Bertrand Patel DO Active AZITHROMYCIN 250 MG ORAL TABLET take 2 po today then take 1 po days 2-5 AZITHROMYCIN 27879996081 No Longer Active Adolfo traore PA Active PERMETHRIN 5 % EXTERNAL CREAM apply neck to toes tonig ht and then rinse off in morning. repeat at 7 days PERMETHRIN 66932545156 No Longer Active Adolfo OSORIO Active AMOXICILLIN 500 MG ORAL CAPSULE 2 po BID x 10 days 201 07/15/00 AMOXICILLIN 32964235007 No Longer Active Yoli Mercado MD PhD Acti ve INSUPEN ULTRAFIN 31G X 6 MM USE DIRECTED INSULIN PEN NEEDLE 30938809968 No Longer Active Bertrand Patel DO Active TRANSDERM-SCOP (1.5 MG) 1 MG/3DAYS TRANSDERMAL PATCH 7 2 HOUR 1 patch applied behind ear q 3 day SCOPOLAMINE BASE 02143489315 No Lo nger Active Bertrand Patel DO Active MACRODANTIN 100 MG ORAL CAPSULE one p.o. b.i.d. x2 weeks NITROFURANTOIN MACROCRYSTAL 86680692141 No Longer Active Bertrand Patel DO Active MACRODANTIN 100 MG ORAL CAPSULE one p.o. b.i.d. x2 weeks MACRODANTIN 100 MG ORAL CAPSULE 6781196 NITROFURANTOIN MACROCRYSTAL Inactive TRANSDERM-SCOP (1.5 MG) 1 [...] days PERMETHRIN 5 % EXTER NAL CREAM 254615 PERMETHRIN Inactive WELLBUTRIN 75 MG ORAL TABLET 2 times daily WELLBUTRIN 75 MG ORAL TABLET BUPROPION HCL Inactive CYMBALTA 30 MG ORAL CAPSULE DELAYED RELEASE PARTICLES 1 cap by mouth daily CYMBALTA 30 MG ORAL CAPSULE DELAYED RELE ASE PARTICLES 033060 DULOXETINE HCL Inactive AZITHROMYCIN 500 MG INTRAVENOUS SOLUTION RECONSTITUTED 1 po q da y AZITHROMYCIN 500 MG INTRAVENOUS SOLUTION RECONSTITUTED 76122 735021 AZITHROMYCIN Inactive CINNAMON ALPHA LIPOIC AC CMPLX CAPSULE by mouth twice a day in AM by mouth twice a day in PM CINNAMON ALPHA LIPOIC AC CMPLX CAPSULE ALPHA LIPOIC [id number] CAPS Inactive MICARDIS HCT 80-12.5 MG ORAL TABLET 1 qd 07/30 MICARDIS HCT 80-12.5 MG ORAL TABLET 526629 TELMISARTAN-HCTZ Inactive PRAVASTATIN SODIUM 20 MG ORAL TABLET 1 tablet by mouth daily at bedtime PRAVASTATIN SODIUM 20 MG ORAL TABLET 534985 PRAVASTATIN SODIUM Inactive FUROSEMIDE 20 MG ORAL TABLET 1 pill by mouth daily if needed for edema FUROSEMIDE 20 MG ORAL TABLET 700123 FUROSEMIDE Inactive METFORMIN HCL 500 MG ORAL TABLET 1 bid METFORMIN HCL 500 MG ORAL TABLET 482796 METFORMIN HCL Inactive B-12 1000 MCG ORAL CAPSULE 1 tab daily B -12 1000 MCG ORAL CAPSULE CYANOCOBALAMIN Inactive VITAMIN E 200 UNIT ORAL CAPSULE 1 cap po qd 1 VITAMIN E 200 UNIT ORAL CAPSULE 3188011 VITAMIN E Inactive [facility] MELATONIN 5-10 MG [...] po daily AZITHROMYCIN 250 MG ORAL TABLET 589312 AZITHROMY BERNARDO Inactive SYMBICORT 160-4.5 MCG/ACT INHALATION AEROSOL 2 puffs BID 9 SYMBICORT 160-4.5 MCG/ACT INHALATION AEROSOL 5749873 BUDESONID E-FORMOTEROL FUMARATE Inactive ALBUTEROL SULFATE (2.5 MG/3ML) 0.083% INHALATION NEBUL IZATION SOLUTION one vial per nebulizer every 4-6 hours as needed ALBUTEROL SULFATE (2.5 MG/3ML) 0.083% INHALATION NEBULIZATION SOLUTION 252859 ALBUTER OL SULFATE Inactive NEBULIZER use as directed NEBULIZER NEBULI ZERS Inactive TESSALON PERLES 100 MG ORAL CAPSULE 1 tablet by mouth 3 times da juan pablo TESSALON PERLES 100 MG ORAL CAPSULE 651910 BENZONATATE Inactive CYCLOBENZAPRINE HCL 10 MG ORAL TABLET Take 1 tab TID PRN for mus triston pain CYCLOBENZAPRINE HCL 10 MG ORAL TABLET 546530 CYCLOBENZA ANUJA HCL Inactive AUGMENTIN 875-125 MG ORAL TABLET 1 po BID x 10 days 20 18/04/06 AUGMENTIN 875-125 MG ORAL TABLET AMOXICILLIN-POT CLAVULANATE Inactive BACTROBAN 2 % EXTERNAL CREAM Apply to affected area BID for up to 10 days BACTROBAN 2 % EXTERNAL CREAM MUPIROCIN CA LCIUM Inactive VITAMIN D3 70792 UNIT ORAL CAPSULE 1 pill Week x 4 mo nths for vitamin D deficiency/osteoporosis VITAMIN D3 55352 UNIT ORAL CAPSULE CHOLECALCIFEROL Inactive BENZONATATE 200 MG ORAL CAPSULE 1 three times a day as neede d for cough BENZONATATE 200 MG ORAL CAPSULE 087255 BENZONATA TE Inactive ZITHROMAX Z-MARTIN 250 MG ORAL TABLET 2 today and then 1 daily for 4 days ZITHROMAX Z-MARTIN 250 MG ORAL TABLET 821029 AZITHR OMYCIN Inactive ADDERALL 10 MG ORAL TABLET 1 tab twice daily 2 ADDERALL 10 MG ORAL TABLET 241682 AMPHETAMINE-DEXTROAMPHETAMINE Inactive LEVAQUIN 500 MG ORAL TABLET 1 tablet by mouth daily 21/06/28 LEVAQUIN 500 MG ORAL TABLET 646954 LEVOFLOXACIN Inactive AMOXICILLIN 500 MG ORAL CAPSULE 2 po BID x 10 days 201 07/15/00 AMOXICILLIN 500 MG ORAL CAPSULE 044405 AMOXICILLIN Inactive AZITHROMYCIN 250 MG ORAL TABLET take 2 po today then take 1 po days 2-5 AZITHROMYCIN 250 MG ORAL TABLET 667152 AZITHROMY BERNARDO Inactive LEVAQUIN 500 MG ORAL TABLET 1 pill by mouth daily 2013 LEVAQUIN 500 MG ORAL TABLET 339626 LEVOFLOXACIN Inactive AUGMENTIN 875-125 MG ORAL TABLET [...] days 08/02 PREDNISONE 20 MG ORAL TABLET 805690 PREDNISONE Inactive CIPRO 500 MG ORAL TABLET 1 tablet by mouth twice daily CIPRO 500 MG ORAL TABLET 189080 CIPROFLOXACIN HCL Inactive DOXYCYCLINE HYCLATE 100 MG ORAL CAPSULE 1 cap by mouth twice jong ly DOXYCYCLINE HYCLATE 100 MG ORAL CAPSULE 7757107 DOXYCYCL INE HYCLATE Inactive PREDNISONE 20 MG ORAL TABLET Take 3 tabs for 3 days, t hen 2 tabs for 3 days, then 1 tab for 3 days PREDNISONE 20 MG ORAL TABLET 312 615 PREDNISONE Inactive CHERATUSSIN AC 100-10 MG/5ML ORAL SYRUP 5ml po q6hr PRN Cough 20 21/03/15 CHERATUSSIN AC 100-10 MG/5ML ORAL SYRUP 734986 GUAIFENE SIN-CODEINE Inactive Vital Signs Date Name [...] negative Strep Screen Lot Number (CLIA Waived) [id number] Strep Screen Exp Date (CLIA Waived) 05/02/2020 Encounters Code Encounter Date Provider Facility CPT-06002 [id number] Vst-Est Level III 16:58:04 CDT Me nae Vazquez [facility]-44137 [id number] Vst-Est Level IV 14:46:36 TRACK REPAIRER HELPER Foster Patel [facility] CPT-58587 Level 3 Est. Patient 12:37:30 TRACK REPAIRER HELPER Galilea gagnon [facility] [place] CPT-20752 Level 3 Est. Patient 11:40:23 CDT Bertrand marquez [facility]-06479 Level 4 Est. Patient 15:33:35 TRACK REPAIRER HELPER Bertrand marquez [facility]-39339 Level 4 Est. Patient 12:31:54 CDT Bertrand marquez [facility] CPT-12812 Level 3 Est. Patient 11:27:00 TRACK REPAIRER HELPER Ike Deluna MD [facility] CPT-00281 Level 3 Est. Patient 08:50:57 TRACK REPAIRER HELPER Silvia Are ll [facility] CPT-35755 Level 3 Est. Patient 10:04:13 CDT Bertrand marquez [facility] CPT-88786 Level 4 Est. Patient 16:02:10 TRACK REPAIRER HELPER Silvia Are ll [facility] [place] CPT-71180 Level 3 Est. Patient 13:04:54 TRACK REPAIRER HELPER Silvia Are ll [facility] CPT-19278 Level 3 Est. Patient 12:56:37 CDT Bertrand marquez [facility] CPT-62177 Level 3 Est. Patient 19:12:03 CDT Yoli tolbert MD [facility] CPT-12517 Level 3 Est. Patient 14:36:01 CDT Yoli tolbert MD [facility] CPT-44132 Level 2 Est. Patient 08:00:22 CDT Jcarlos dc MD [facility]-53488 Level 3 Est. Patient 19:06:55 CDT Bertrand marquez [facility] CPT-54133 Level 3 Est. Patient 10:08:23 TRACK REPAIRER HELPER Bertrand marquez [facility] CPT-89428 Level 3 Est. Patient 16:37:54 TRACK REPAIRER HELPER Bertrand marquez [facility] CPT-31478 Level 3 Est. Patient 11:31:59 TRACK REPAIRER HELPER Bertrand marquez [facility] CPT-10283 Level 3 Est. Patient 10:20:08 CDT Adolfo villasenor [facility] CPT-52921 Level 3 Est. Patient 13:45:20 CDT Sanket buckley [facility] CPT-73037 Level 3 Est. Patient 12:51:06 CDT Adolfo OSORIO [facility] CPT-32959 Level 3 Est. Patient 11:22:51 TRACK REPAIRER HELPER Yoli tolbert MD PhD [facility] CPT-03228 Level 3 Est. Patient 13:33:19 CDT Bertrand Sabillon ee DO [facility] Procedures Code Procedure Name Date Entry Date Standard Desc ription CPT-33925 Wound Culture - LAB USE ONLY 15:45:25 CDT 2 CPT-26653 Venipuncture Draw Fee 10:23:01 CDT CPT-J0696 Rocephin 1000 mg (Ceftriaxone) 16:20:30 TRACK REPAIRER HELPER CPT-57376 Abx/Therapy Injection 16:20:29 TRACK REPAIRER HELPER CPT-J0696 Rocephin 1gm Inj Solr 15:51:59 TRACK REPAIRER HELPER CPT-23173 Chest 2V Frontal and Lat 15:20:28 TRACK REPAIRER HELPER 07/22 CPT-14663 Breathing Tx 14:51:55 TRACK REPAIRER HELPER CPT-47024 Breathing Tx 09:57:16 TRACK REPAIRER HELPER CPT-82200 Knee comp 4/> V 11:58:06 TRACK REPAIRER HELPER
--- OUTSIDE RECORDS SUMMARY | 2019-11-13 09:48 | XMS REPORT | Clinical Summary ---
Author Author Admin, Enrique Adamson Organization [facility] Address Unknown Phone Unavailable Allergies, Adverse Reactions, [...] 09/09/28 EDEMA LEG ICD-782.3 Inactive Adele Feldman TRANSACTION PROCESSOR 201 01/01/02 SHORTNESS OF BREATH ICD-786.05 Inactive Yoli Mercado MD PhD RIB PAIN, RIGHT SIDED ICD-786.50 Inactive Yoli Mercado MD PhD KNEE PAIN, RIGHT ICD-719.46 Inactive Adele Alexusu ghn TRANSACTION PROCESSOR Knee pain, left ICD-719.46 Inactive Adele Alexusug hn TRANSACTION PROCESSOR Pharyngitis-Acute ICD-462 Inactive Bertrand Redmond DO Polyuria ICD-788.42 Inactive Yoli Mercado MD P Cellulitis, leg, right ICD-682.6 Inactive Yuki Deluna MD Foreign body, ear ICD-931 Inactive Yoli salazar MD PhD Fatigue ICD-780.79 Inactive Ike Deluna MD 201 12/01/06 Headache ICD-784.0 Inactive Adele Feldman TRANSACTION PROCESSOR 2017 Cough ICD-786.2 Inactive Adele Feldman TRANSACTION PROCESSOR 06/04 SINUSITIS, ACUTE ICD-461.9 Inactive Ike lange MD Fatigue ICD-780.79 Inactive Adele Feldman TRANSACTION PROCESSOR 2017 Bronchitis acute with bronchospasm ICD-466.0 I nactive Bertrand Patel DO Animal bite ICD-919.8 Inactive Adele Feldman LP N Mycoplasma infection ICD-041.81 Inactive Anit a Feldman TRANSACTION PROCESSOR Amenorrhea, secondary ICD-626.0 Inactive Clotilde Feldman LPN Left maxillary sinusitis ICD-473.0 Inactive Bertrand Patel DO Medication List Medication Instructions Start Date Stop Date Generic Name ND Status Provider Patient Instruction TELMISARTAN 80 MG TABS 1 TABLET PO DAILY FOR BLOOD PRESSURE TELMISARTAN [id number] Active Adriana Davalos RN Active MODAFINIL 200 MG TABS 1/2 TABLET PO IN THE AM AND 1/2 TABLET AT NOON MODAFINIL 42239517859 Active Adriana Davalos RN Activ e DULOXETINE HCL 60 MG CPEP 1 CAPSULE PO DAILY DU LOXETINE HCL 81727318711 Active Adriana Davalos RN Active AMLODIPINE 5MG 1 TABLET PO DAILY FOR BLOOD PRESSURE AMLODIPINE BESYLATE 00112956033 Active Adriana Davalos RN Active ALPRAZOLAM 0.5 MG TABS TAKE 1 TABLET BY MOUTH THREE TIMES DAILY 201 02/10/05 ALPRAZOLAM 03996363057 Active Adriana Davalos RN Active SUDAFED 12 HOUR 120 MG ORAL TABLET EXTENDED RELEASE 12 HOUR 1 pill twice daily if for congestion PSEUDOEPHEDRINE HCL 81046035524 Active Silvia Vazquez APRN Active CHERATUSSIN AC 100-10 MG/5ML ORAL SYRUP 5ml po q6hr PRN Cough 20 21/03/15 GUAIFENESIN-CODEINE 49645539362 No Longer Active Silvia Vazquez APRN Active FLUTICASONE PROPIONATE 50 MCG/ACT NASAL SUSPENSION 2 s prays per nostril daily for 2 weeks, then 1 spray each nostril PRN FLUTI CASONE PROPIONATE 49871617554 Active Silvia Vazquez APRN Active HYDROCODONE-ACETAMINOPHEN 7.5-325 MG TABS TAKE 1 TABLE T BY MOUTH EVERY SIX HOURS NEEDED FOR PAIN HYDROCODONE-ACETAMINOPHEN 69547037207 A ctive Adele Feldman LPN Active EVENING PRIMROSE OIL 1000 MG ORAL CAPSULE 1 capsule once daily EVENING PRIMROSE OIL 16972444754 Active Bertrand Patel DO Active LEVAQUIN 500 MG ORAL TABLET 1 tablet by mouth daily 21/06/28 LEVOFLOXACIN 45608440296 No Longer Active Bertrand Patel DO Active PREDNISONE 20 MG ORAL TABLET Take 3 tabs for 3 days, t hen 2 tabs for 3 days, then 1 tab for 3 days PREDNISONE 12131691871 No Rainer fatou Active Galilea Sell PUBLICITY MANAGER Active DOXYCYCLINE HYCLATE 100 MG ORAL CAPSULE 1 cap by mouth twice jong ly DOXYCYCLINE HYCLATE 37757777177 No Longer Active Galilea Sell PUBLICITY MANAGER Active ADDERALL 10 MG ORAL TABLET 1 tab twice daily 2 AMPHETAMINE-DEXTROAMPHETAMINE 35605097262 No Longer Active Nitza Phi llips Scribe Active ZITHROMAX Z-MARTIN 250 MG ORAL TABLET 2 today and then 1 daily for 4 days AZITHROMYCIN 25735541490 No Longer Active Nitza Osman lips Scribe Active BENZONATATE 200 MG ORAL CAPSULE 1 three times a day as neede d for cough BENZONATATE 18136436980 No Longer Active Nitza Osman lips Scribe Active VITAMIN D3 34583 UNIT ORAL CAPSULE 1 pill Week x 4 mo nths for vitamin D deficiency/osteoporosis CHOLECALCIFEROL 14313769546 N o Longer Active Layla Garcia Active BACTROBAN 2 % EXTERNAL CREAM Apply to affected area BID for up to 10 days MUPIROCIN CALCIUM 99815271922 No Longer Active Ike Deluna MD Active CIPRO 500 MG ORAL TABLET 1 tablet by mouth twice daily CIPROFLOXACIN HCL 71817376696 No Longer Active Adriana Bender LPN Active AUGMENTIN 875-125 MG ORAL TABLET 1 po BID x 10 days 20 18/04/06 AMOXICILLIN-POT CLAVULANATE 32752358360 No Longer Active Adriana Bender LPN Active CYCLOBENZAPRINE HCL 10 MG ORAL TABLET Take 1 tab TID PRN for mus triston pain CYCLOBENZAPRINE HCL 93926158229 No Longer Active Bertrand Patel DO Active TESSALON PERLES 100 MG ORAL CAPSULE 1 tablet by mouth 3 times da juan pablo BENZONATATE 14549700053 No Longer Active Bertrand Patel DO Ac tive NEBULIZER use as directed NEBULIZERS 35469236851 No Longer Active Bertrand Patel DO Active ALBUTEROL SULFATE (2.5 MG/3ML) 0.083% INHALATION NEBUL IZATION SOLUTION one vial per nebulizer every 4-6 hours as needed ALBUTERO L SULFATE 87898495008 No Longer Active Bertrand Patel DO Active SYMBICORT 160-4.5 MCG/ACT INHALATION AEROSOL 2 puffs BID 9 BUDESONIDE-FORMOTEROL FUMARATE 63354139852 No Longer Active Bertrand Patel DO Active PREDNISONE 20 MG ORAL TABLET take 3 tabs daily for 3 d ays, 2 tabs daily for 3 days, 1 tab daily for 3 days, 1/2 tab daily for 3 days 08/02 PREDNISONE 09402066753 No Longer Active Silvia Arekalin TOVARN Active AZITHROMYCIN 250 MG ORAL TABLET Take 2 tabs po today then 1 tab po daily AZITHROMYCIN 48943629612 No Longer Active Silvia Arell PUBLICITY MANAGER Active AUGMENTIN 875-125 MG ORAL TABLET 1 po BID x 10 days 20 19/07/13 AMOXICILLIN-POT CLAVULANATE 15563265349 No Longer Active Adriana Bender LPN Active CHEWABLE CALCIUM 500-200-40 MG-UNT-MCG ORAL TABLET CHEWABLE 1 chew tab bid CALCIUM-VITAMIN D-VITAMIN K 62643863459 Active Silvia Are ll PUBLICITY MANAGER Active EQ COMPLETE MULTIVIT ADULT 50+ ORAL TABLET 1 tab po bid MULTIPLE VITAMINS-MINERALS 67655534105 Active Silvia Arell PUBLICITY MANAGER Active LORTAB 7.5-500 MG ORAL TABLET take one po Q6 hours 201 09/12/01 HYDROCODONE-ACETAMINOPHEN 87096227994 No Longer Active Nirmal Robbins RN Active [facility] MELATONIN 5-10 MG ORAL TABLET EXTENDED RELEASE Jair e one by mouth daily at bedtime MELATONIN-PYRIDOXINE 81087031464 No Longer Acti ve Bertrand W Jorge DO Active VITAMIN E 200 UNIT ORAL CAPSULE 1 cap po qd VITAM IN E 56833818184 No Longer Active Bertrand Patel DO Active B-12 1000 MCG ORAL CAPSULE 1 tab daily CYANOCOB ALAMIN 68438588999 No Longer Active Bertrand Patel DO Active METFORMIN HCL 500 MG ORAL TABLET 1 bid METFOR MIN HCL 57409900616 No Longer Active Bertrand Patel DO Active FUROSEMIDE 20 MG ORAL TABLET 1 pill by mouth daily if needed for edema FUROSEMIDE 09749284890 No Longer Active Bertrand Patel DO Active PRAVASTATIN SODIUM 20 MG ORAL TABLET 1 tablet by mouth daily at bedtime PRAVASTATIN SODIUM 59794300088 No Longer Active Bertrand Patel DO Active AUGMENTIN 875-125 MG ORAL TABLET 1 pill by mouth twice daily 201 09/10/00 AMOXICILLIN-POT CLAVULANATE 09440318296 No Longer Active Yoli Mercado MD PhD Active LEVAQUIN 500 MG ORAL TABLET 1 pill by mouth daily 2013 LEVOFLOXACIN 05702605519 No Longer Active Yoli Mercado MD PhD Acti ve MICARDIS 80 MG ORAL TABLET 1 tablet daily for blood pressure 07/30 TELMISARTAN 49529993886 Active Adriana Davalos RN Active MICARDIS HCT 80-12.5 MG ORAL TABLET 1 qd TELMISARTAN-HCTZ 50991868312 No Longer Active Bertrand Patel DO Active CINNAMON ALPHA LIPOIC AC CMPLX CAPSULE by mouth twice a day in AM by mouth twice a day in PM ALPHA LIPOIC [id number] CA PS 29551435701 No Longer Active Bertrand Patel DO Active AZITHROMYCIN 500 MG INTRAVENOUS SOLUTION RECONSTITUTED 1 po q da y AZITHROMYCIN 99847029530 No Longer Active Bertrand Patel DO A ctive CYMBALTA 30 MG ORAL CAPSULE DELAYED RELEASE PARTICLES 1 cap by mouth daily DULOXETINE HCL 89396749365 No Longer Active Bertrand marquez DO Active CYMBALTA 60 MG ORAL CAPSULE DELAYED RELEASE PARTICLES 1 cap by mouth daily DULOXETINE HCL 85875580361 Active Adriana Davalos RN Active WELLBUTRIN 75 MG ORAL TABLET 2 times daily BUPR OPION HCL 39504995435 No Longer Active Bertrand Patel DO Active PROAIR HFA 108 (90 Base) MCG/ACT INHALATION AEROSOL SO LUTION take one to two puffs po Q4-6 hour prn cough and shortness of breath ALBUTEROL SULFATE 34940778781 Active Bertrand Patel DO Active AZITHROMYCIN 250 MG ORAL TABLET take 2 po today then take 1 po days 2-5 AZITHROMYCIN 01450396759 No Longer Active Adolfo OSORIO Active PERMETHRIN 5 % EXTERNAL CREAM apply neck to toes tonig ht and then rinse off in morning. repeat at 7 days PERMETHRIN 64094411757 No Longer Active Aodlfo OSORIO Active AMOXICILLIN 500 MG ORAL CAPSULE 2 po BID x 10 days 201 07/15/00 AMOXICILLIN 25586261024 No Longer Active Yoli Mercado MD PhD Acti ve INSUPEN ULTRAFIN 31G X 6 MM USE DIRECTED INSULIN PEN NEEDLE 48971038181 No Longer Active Bertrand Patel DO Active TRANSDERM-SCOP (1.5 MG) 1 MG/3DAYS TRANSDERMAL PATCH 7 2 HOUR 1 patch applied behind ear q 3 day SCOPOLAMINE BASE 32024293261 No Lo nger Active Bertrand Patel DO Active MACRODANTIN 100 MG ORAL CAPSULE one p.o. b.i.d. x2 weeks NITROFURANTOIN MACROCRYSTAL 08699143367 No Longer Active Bertrand Patel DO Active MACRODANTIN 100 MG ORAL CAPSULE one p.o. b.i.d. x2 weeks MACRODANTIN 100 MG ORAL CAPSULE 2272766 NITROFURANTOIN MACROCRYSTAL Inactive TRANSDERM-SCOP (1.5 MG) 1 [...] days PERMETHRIN 5 % EXTER NAL CREAM 592937 PERMETHRIN Inactive WELLBUTRIN 75 MG ORAL TABLET 2 times daily WELLBUTRIN 75 MG ORAL TABLET BUPROPION HCL Inactive CYMBALTA 30 MG ORAL CAPSULE DELAYED RELEASE PARTICLES 1 cap by mouth daily CYMBALTA 30 MG ORAL CAPSULE DELAYED RELE ASE PARTICLES 898833 DULOXETINE HCL Inactive AZITHROMYCIN 500 MG INTRAVENOUS SOLUTION RECONSTITUTED 1 po q da y AZITHROMYCIN 500 MG INTRAVENOUS SOLUTION RECONSTITUTED 86959 585465 AZITHROMYCIN Inactive CINNAMON ALPHA LIPOIC AC CMPLX CAPSULE by mouth twice a day in AM by mouth twice a day in PM CINNAMON ALPHA LIPOIC AC CMPLX CAPSULE ALPHA LIPOIC [id number] CAPS Inactive MICARDIS HCT 80-12.5 MG ORAL TABLET 1 qd 07/30 MICARDIS HCT 80-12.5 MG ORAL TABLET 566156 TELMISARTAN-HCTZ Inactive PRAVASTATIN SODIUM 20 MG ORAL TABLET 1 tablet by mouth daily at bedtime PRAVASTATIN SODIUM 20 MG ORAL TABLET 879835 PRAVASTATIN SODIUM Inactive FUROSEMIDE 20 MG ORAL TABLET 1 pill by mouth daily if needed for edema FUROSEMIDE 20 MG ORAL TABLET 848520 FUROSEMIDE Inactive METFORMIN HCL 500 MG ORAL TABLET 1 bid METFORMIN HCL 500 MG ORAL TABLET 553557 METFORMIN HCL Inactive B-12 1000 MCG ORAL CAPSULE 1 tab daily B -12 1000 MCG ORAL CAPSULE CYANOCOBALAMIN Inactive VITAMIN E 200 UNIT ORAL CAPSULE 1 cap po qd 1 VITAMIN E 200 UNIT ORAL CAPSULE 3731010 VITAMIN E Inactive [facility] MELATONIN 5-10 MG [...] po daily AZITHROMYCIN 250 MG ORAL TABLET 193214 AZITHROMY BERNARDO Inactive SYMBICORT 160-4.5 MCG/ACT INHALATION AEROSOL 2 puffs BID 9 SYMBICORT 160-4.5 MCG/ACT INHALATION AEROSOL BUDESONIDE-FORM OTEROL FUMARATE Inactive ALBUTEROL SULFATE (2.5 MG/3ML) 0.083% INHALATION NEBUL IZATION SOLUTION one vial per nebulizer every 4-6 hours as needed ALBUTEROL SULFATE (2.5 MG/3ML) 0.083% INHALATION NEBULIZATION SOLUTION 339857 ALBUTER OL SULFATE Inactive NEBULIZER use as directed NEBULIZER NEBULI ZERS Inactive TESSALON PERLES 100 MG ORAL CAPSULE 1 tablet by mouth 3 times da juan pablo TESSALON PERLES 100 MG ORAL CAPSULE 873793 BENZONATATE Inactive CYCLOBENZAPRINE HCL 10 MG ORAL TABLET Take 1 tab TID PRN for mus triston pain CYCLOBENZAPRINE HCL 10 MG ORAL TABLET 301709 CYCLOBENZA ANUJA HCL Inactive AUGMENTIN 875-125 MG ORAL TABLET 1 po BID x 10 days 20 18/04/06 AUGMENTIN 875-125 MG ORAL TABLET AMOXICILLIN-POT CLAVULANATE Inactive BACTROBAN 2 % EXTERNAL CREAM Apply to affected area BID for up to 10 days BACTROBAN 2 % EXTERNAL CREAM MUPIROCIN CA LCIUM Inactive VITAMIN D3 21402 UNIT ORAL CAPSULE 1 pill Week x 4 mo nths for vitamin D deficiency/osteoporosis VITAMIN D3 47647 UNIT ORAL CAPSULE CHOLECALCIFEROL Inactive BENZONATATE 200 MG ORAL CAPSULE 1 three times a day as neede d for cough BENZONATATE 200 MG ORAL CAPSULE 634450 BENZONATA TE Inactive ZITHROMAX Z-MARTIN 250 MG ORAL TABLET 2 today and then 1 daily for 4 days ZITHROMAX Z-MARTIN 250 MG ORAL TABLET 484673 AZITHR OMYCIN Inactive ADDERALL 10 MG ORAL TABLET 1 tab twice daily 2 ADDERALL 10 MG ORAL TABLET 114292 AMPHETAMINE-DEXTROAMPHETAMINE Inactive LEVAQUIN 500 MG ORAL TABLET 1 tablet by mouth daily 21/06/28 LEVAQUIN 500 MG ORAL TABLET 883614 LEVOFLOXACIN Inactive AMOXICILLIN 500 MG ORAL CAPSULE 2 po BID x 10 days 201 07/15/00 AMOXICILLIN 500 MG ORAL CAPSULE 958961 AMOXICILLIN Inactive AZITHROMYCIN 250 MG ORAL TABLET take 2 po today then take 1 po days 2-5 AZITHROMYCIN 250 MG ORAL TABLET 568855 AZITHROMY BERNARDO Inactive LEVAQUIN 500 MG ORAL TABLET 1 pill by mouth daily 2013 LEVAQUIN 500 MG ORAL TABLET 498687 LEVOFLOXACIN Inactive AUGMENTIN 875-125 MG ORAL TABLET [...] days 08/02 PREDNISONE 20 MG ORAL TABLET 645306 PREDNISONE Inactive CIPRO 500 MG ORAL TABLET 1 tablet by mouth twice daily CIPRO 500 MG ORAL TABLET 425743 CIPROFLOXACIN HCL Inactive DOXYCYCLINE HYCLATE 100 MG ORAL CAPSULE 1 cap by mouth twice jong ly DOXYCYCLINE HYCLATE 100 MG ORAL CAPSULE 5750954 DOXYCYCL INE HYCLATE Inactive PREDNISONE 20 MG ORAL TABLET Take 3 tabs for 3 days, t hen 2 tabs for 3 days, then 1 tab for 3 days PREDNISONE 20 MG ORAL TABLET 312 615 PREDNISONE Inactive CHERATUSSIN AC 100-10 MG/5ML ORAL SYRUP 5ml po q6hr PRN Cough 20 21/03/15 CHERATUSSIN AC 100-10 MG/5ML ORAL SYRUP 018195 GUAIFENE SIN-CODEINE Inactive Vital Signs Date Name [...] negative Strep Screen Lot Number (CLIA Waived) [id number] Strep Screen Exp Date (CLIA Waived) 05/02/2020 Encounters Code Encounter Date Provider Facility CPT-34731 [id number] Vst-Est Level III 16:58:04 CDT Me nae Vazquez [facility]-[id number] [id number] Vst-Est Level IV 14:46:36 COMPLEX CARE NURSE PRACTITIONER Foster Patel [facility] CPT-37901 Level 3 Est. Patient 12:37:30 COMPLEX CARE NURSE PRACTITIONER Galilea gagnon [facility] CPT-70035 Level 3 Est. Patient 11:40:23 CDT Bertrand marquez [facility] CPT-35419 Level 4 Est. Patient 15:33:35 COMPLEX CARE NURSE PRACTITIONER Bertrand marquez [facility] CPT-88209 Level 4 Est. Patient 12:31:54 CDT Bertrand marquez [facility] CPT-58783 Level 3 Est. Patient 11:27:00 COMPLEX CARE NURSE PRACTITIONER Ike Deluna MD [facility] CPT-93064 Level 3 Est. Patient 08:50:57 COMPLEX CARE NURSE PRACTITIONER Silvia Are ll [facility] CPT-71780 Level 3 Est. Patient 10:04:13 CDT Bertrand marquez [facility] CPT-79508 Level 4 Est. Patient 16:02:10 COMPLEX CARE NURSE PRACTITIONER Silvia Are ll [facility] CPT-07711 Level 3 Est. Patient 13:04:54 COMPLEX CARE NURSE PRACTITIONER Silvia Are [facility] CPT-15843 Level 3 Est. Patient 12:56:37 CDT Bertrand marquez [facility] CPT-91213 Level 3 Est. Patient 19:12:03 CDT Yoli tolbert MD PhD [facility] CPT-62816 Level 3 Est. Patient 14:36:01 CDT Yoli tolbert MD [facility] CPT-91846 Level 2 Est. Patient 08:00:22 CDT Jcarlos dc MD [facility] CPT-27167 Level 3 Est. Patient 19:06:55 CDT Bertrand marquez [facility] CPT-80471 Level 3 Est. Patient 10:08:23 COMPLEX CARE NURSE PRACTITIONER Bertrand marquez [facility] CPT-51922 Level 3 Est. Patient 16:37:54 COMPLEX CARE NURSE PRACTITIONER Bertrand marquez [facility] CPT-71151 Level 3 Est. Patient 11:31:59 COMPLEX CARE NURSE PRACTITIONER Bertrand marquez [facility] CPT-75040 Level 3 Est. Patient 10:20:08 CDT Adolfo villasenor [facility] CPT-18805 Level 3 Est. Patient 13:45:20 CDT Sanket buckley [facility] CPT-75522 Level 3 Est. Patient 12:51:06 CDT Adolfo villasenor [facility] CPT-26669 Level 3 Est. Patient 11:22:51 COMPLEX CARE NURSE PRACTITIONER Yoli tolbert MD PhD [facility] CPT-39229 Level 3 Est. Patient 13:33:19 CDT Bertrand Sabillon ee DO [facility] Procedures Code Procedure Name Date Entry Date Standard Desc ription CPT-21956 Wound Culture - LAB USE ONLY 15:45:25 CDT 2 CPT-83504 Venipuncture Draw Fee 10:23:01 CDT CPT-J0696 Rocephin 1000 mg (Ceftriaxone) 16:20:30 COMPLEX CARE NURSE PRACTITIONER CPT-31066 Abx/Therapy Injection 16:20:29 COMPLEX CARE NURSE PRACTITIONER CPT-J0696 Rocephin 1gm Inj Solr 15:51:59 COMPLEX CARE NURSE PRACTITIONER CPT-84250 Chest 2V Frontal and Lat 15:20:28 COMPLEX CARE NURSE PRACTITIONER 07/22 CPT-63593 Breathing Tx 14:51:55 COMPLEX CARE NURSE PRACTITIONER CPT-04856 Breathing Tx 09:57:16 COMPLEX CARE NURSE PRACTITIONER CPT-09775 Knee comp 4/> V 11:58:06 COMPLEX CARE NURSE PRACTITIONER
--- OUTSIDE RECORDS SUMMARY | 2019-11-13 09:49 | XMS REPORT | Clinical Summary ---
Author Author Admin, Enrique Adamson Organization [employer] Address Unknown Phone Unavailable Allergies, Adverse Reactions, [...] 201 09/09/28 EDEMA LEG ICD-782.3 Inactive Adele Fedlman [employer] SALES MANAGER 201 01/01/02 SHORTNESS OF BREATH ICD-786.05 Inactive Yoli Mercado MD PhD RIB PAIN, RIGHT SIDED ICD-786.50 Inactive Yoli Mercado MD PhD KNEE PAIN, RIGHT ICD-719.46 Inactive Adele Alexusu ghn [employer] SALES MANAGER Knee pain, left ICD-719.46 Inactive Adele Alexusug hn [employer]ERAL SALES MANAGER Pharyngitis-Acute ICD-462 Inactive Bertrand Redmond DO Polyuria ICD-788.42 Inactive Yoli Mercado MD P Cellulitis, leg, right ICD-682.6 Inactive Yuki Deluna MD Foreign body, ear ICD-931 Inactive Yoli salazar MD PhD Fatigue ICD-780.79 Inactive Ike Deluna MD 201 12/01/06 Headache ICD-784.0 Inactive Adele Feldman [employer]ERAL SALES MANAGER 2017 Cough ICD-786.2 Inactive Adele Feldman FUNERAL SALES MANAGER 06/04 SINUSITIS, ACUTE ICD-461.9 Inactive Ike lange MD Fatigue ICD-780.79 Inactive Adele Feldman FUNERAL SALES MANAGER 2017 Bronchitis acute with bronchospasm ICD-466.0 I nactive Bertrand Patel DO Animal bite ICD-919.8 Inactive Adele Feldman LP N Mycoplasma infection ICD-041.81 Inactive Anit a Feldman [employer]ERAL SALES MANAGER Amenorrhea, secondary ICD-626.0 Inactive Clotilde Feldman LPN Left maxillary sinusitis ICD-473.0 Inactive Bertrand Patel DO Medication List Medication Instructions Start Date Stop Date Generic Name ND Status Provider Patient Instruction MODAFINIL 200 MG TABS TAKE 1/2 TABLET BY MOUTH IN THE MORNING AND TAKE 1/2 TABLET AT NOON MODAFINIL 45961785968 Active Adriana Davalos RN Active ALPRAZOLAM 0.5 MG TABS TAKE 1 TABLET BY MOUTH THREE TIMES DAILY 201 02/10/05 ALPRAZOLAM 22130892124 Active Adriana Davalos RN Active SUDAFED 12 HOUR 120 MG ORAL TABLET EXTENDED RELEASE 12 HOUR 1 pill twice daily if for congestion PSEUDOEPHEDRINE HCL 18298166487 Active Silvia Vazquez APRN Active CHERATUSSIN AC 100-10 MG/5ML ORAL SYRUP 5ml po q6hr PRN Cough 20 21/03/15 GUAIFENESIN-CODEINE 38858247535 No Longer Active Silvia Vazquez APRN Active FLUTICASONE PROPIONATE 50 MCG/ACT NASAL SUSPENSION 2 s prays per nostril daily for 2 weeks, then 1 spray each nostril PRN FLUTI CASONE PROPIONATE 42570281737 Active Silvia Vazquez APRN Active HYDROCODONE-ACETAMINOPHEN 7.5-325 MG TABS TAKE 1 TABLE T BY MOUTH EVERY SIX HOURS NEEDED FOR PAIN HYDROCODONE-ACETAMINOPHEN 87272182186 A ctive Adele Gaston ARTHUR Active EVENING PRIMROSE OIL 1000 MG ORAL CAPSULE 1 capsule once daily EVENING PRIMROSE OIL 44558316564 Active Bertrand Patel DO Active LEVAQUIN 500 MG ORAL TABLET 1 tablet by mouth daily 20 21/06/28 LEVOFLOXACIN 94992506895 No Longer Active Bertrand Patel DO Active PREDNISONE 20 MG ORAL TABLET Take 3 tabs for 3 days, t hen 2 tabs for 3 days, then 1 tab for 3 days PREDNISONE 37727680210 No Rainer fatou Active Galilea Niya FIRE PREVENTION BUREAU CAPTAIN Active DOXYCYCLINE HYCLATE 100 MG ORAL CAPSULE 1 cap by mouth twice jong ly DOXYCYCLINE HYCLATE 40654198374 No Longer Active Galilea Sell FIRE PREVENTION BUREAU CAPTAIN Active ADDERALL 10 MG ORAL TABLET 1 tab twice daily 2 AMPHETAMINE-DEXTROAMPHETAMINE 13854221587 No Longer Active Nitza Phi llips Scribe Active ZITHROMAX Z-MARTIN 250 MG ORAL TABLET 2 today and then 1 daily for 4 days AZITHROMYCIN 93163167445 No Longer Active Nitza Osman lips Scribe Active BENZONATATE 200 MG ORAL CAPSULE 1 three times a day as neede d for cough BENZONATATE 16124993444 No Longer Active Nitza Osman lips Scribe Active VITAMIN D3 05766 UNIT ORAL CAPSULE 1 pill Week x 4 mo nths for vitamin D deficiency/osteoporosis CHOLECALCIFEROL 62515322335 N o Longer Active Layla Garcia Active BACTROBAN 2 % EXTERNAL CREAM Apply to affected area BID for up to 10 days MUPIROCIN CALCIUM 80153355858 No Longer Active Ike Deluna MD Active CIPRO 500 MG ORAL TABLET 1 tablet by mouth twice daily CIPROFLOXACIN HCL 13893906706 No Longer Active Adriana Bender LPN Active AUGMENTIN 875-125 MG ORAL TABLET 1 po BID x 10 days 18/04/06 AMOXICILLIN-POT CLAVULANATE 40925250504 No Longer Active Adriana Bender LPN Active CYCLOBENZAPRINE HCL 10 MG ORAL TABLET Take 1 tab TID PRN for mus triston pain CYCLOBENZAPRINE HCL 20890151573 No Longer Active Bertrand Patel DO Active TESSALON PERLES 100 MG ORAL CAPSULE 1 tablet by mouth 3 times da juan pablo BENZONATATE 23530093001 No Longer Active Bertrand Patel DO Ac tive NEBULIZER use as directed NEBULIZERS 20649862733 No Longer Active Bertrand Patel DO Active ALBUTEROL SULFATE (2.5 MG/3ML) 0.083% INHALATION NEBUL IZATION SOLUTION one vial per nebulizer every 4-6 hours as needed ALBUTERO L SULFATE 22202635860 No Longer Active Bertrand Patel DO Active SYMBICORT 160-4.5 MCG/ACT INHALATION AEROSOL 2 puffs BID 9 BUDESONIDE-FORMOTEROL FUMARATE 61128676398 No Longer Active Bertrand Patel DO Active PREDNISONE 20 MG ORAL TABLET take 3 tabs daily for 3 d ays, 2 tabs daily for 3 days, 1 tab daily for 3 days, 1/2 tab daily for 3 days 08/02 PREDNISONE 34884133953 No Longer Active Silvia Arell FIRE PREVENTION BUREAU CAPTAIN Active AZITHROMYCIN 250 MG ORAL TABLET Take 2 tabs po today then 1 tab po daily AZITHROMYCIN 47405232589 No Longer Active Silvia Arell FIRE PREVENTION BUREAU CAPTAIN Active AUGMENTIN 875-125 MG ORAL TABLET 1 po BID x 10 days 20 19/07/13 AMOXICILLIN-POT CLAVULANATE 93565470924 No Longer Active Adriana Bender LPN Active CHEWABLE CALCIUM 500-200-40 MG-UNT-MCG ORAL TABLET CHEWABLE 1 chew tab bid CALCIUM-VITAMIN D-VITAMIN K 27684068495 Active Silvia Are ll FIRE PREVENTION BUREAU CAPTAIN Active EQ COMPLETE MULTIVIT ADULT 50+ ORAL TABLET 1 tab po bid MULTIPLE VITAMINS-MINERALS 24437257648 Active Silvia Arell FIRE PREVENTION BUREAU CAPTAIN Active LORTAB 7.5-500 MG ORAL TABLET take one po Q6 hours 201 09/12/01 HYDROCODONE-ACETAMINOPHEN 30151195963 No Longer Active Nirmal Robbins RN Active [facility] MELATONIN 5-10 MG ORAL TABLET EXTENDED RELEASE Jair e one by mouth daily at bedtime MELATONIN-PYRIDOXINE 14262805935 No Longer Acti ve Bertrand Patel DO Active VITAMIN E 200 UNIT ORAL CAPSULE 1 cap po qd VITAM IN E 67579127080 No Longer Active Bertrand Patel DO Active B-12 1000 MCG ORAL CAPSULE 1 tab daily CYANOCOB ALAMIN 65747189243 No Longer Active Bertrand Patel DO Active METFORMIN HCL 500 MG ORAL TABLET 1 bid METFOR MIN HCL 24014244263 No Longer Active Bertrand W Jorge DO Active FUROSEMIDE 20 MG ORAL TABLET 1 pill by mouth daily if needed for edema FUROSEMIDE 88042901205 No Longer Active Bertrand Patel DO Active PRAVASTATIN SODIUM 20 MG ORAL TABLET 1 tablet by mouth daily at bedtime PRAVASTATIN SODIUM 62441836014 No Longer Active Bertrand Patel DO Active AUGMENTIN 875-125 MG ORAL TABLET 1 pill by mouth twice daily 201 09/10/00 AMOXICILLIN-POT CLAVULANATE 61885335686 No Longer Active Yoli Mercado MD PhD Active LEVAQUIN 500 MG ORAL TABLET 1 pill by mouth daily 2013 LEVOFLOXACIN 66770692184 No Longer Active Yoli Mercado MD PhD Acti ve AMLODIPINE BESYLATE 5 MG ORAL TABLET 1 tablet by mouth daily for blood pressure AMLODIPINE BESYLATE 55716938828 Active Bertrand Patel DO Active MICARDIS 80 MG ORAL TABLET 1 tablet daily for blood pressure 07/30 TELMISARTAN 52443391499 Active Bertrand Patel DO Active MICARDIS HCT 80-12.5 MG ORAL TABLET 1 qd TELMISARTAN-HCTZ 55034066735 No Longer Active Bertrand Patel DO Active CINNAMON ALPHA LIPOIC AC CMPLX CAPSULE by mouth twice a day in AM by mouth twice a day in PM ALPHA LIPOIC [id number] CA PS 30423608304 No Longer Active Bertrand Patel DO Active AZITHROMYCIN 500 MG INTRAVENOUS SOLUTION RECONSTITUTED 1 po q da y AZITHROMYCIN 10620220929 No Longer Active Bertrand Patel DO A ctive CYMBALTA 30 MG ORAL CAPSULE DELAYED RELEASE PARTICLES 1 cap by mouth daily DULOXETINE HCL 88959471994 No Longer Active Bertrand marquez DO Active CYMBALTA 60 MG ORAL CAPSULE DELAYED RELEASE PARTICLES 1 cap by mouth daily DULOXETINE HCL 75190943223 Active Bertrand Patel DO Active WELLBUTRIN 75 MG ORAL TABLET 2 times daily BUPR OPION HCL 50554945249 No Longer Active Bertrand Patel DO Active PROAIR HFA 108 (90 Base) MCG/ACT INHALATION AEROSOL SO LUTION take one to two puffs po Q4-6 hour prn cough and shortness of breath ALBUTEROL SULFATE 89921116815 Active Bertrand Patel DO Active AZITHROMYCIN 250 MG ORAL TABLET take 2 po today then take 1 po days 2-5 AZITHROMYCIN 12665343273 No Longer Active Adolfo OSORIO Active PERMETHRIN 5 % EXTERNAL CREAM apply neck to toes tonig ht and then rinse off in morning. repeat at 7 days PERMETHRIN 81855022841 No Longer Active Adolfo OSORIO Active AMOXICILLIN 500 MG ORAL CAPSULE 2 po BID x 10 days 201 07/15/00 AMOXICILLIN 87187609544 No Longer Active Yoli Mercado MD PhD Acti ve INSUPEN ULTRAFIN 31G X 6 MM USE DIRECTED INSULIN PEN NEEDLE 14949308985 No Longer Active Bertrand Patel DO Active TRANSDERM-SCOP (1.5 MG) 1 MG/3DAYS TRANSDERMAL PATCH 7 2 HOUR 1 patch applied behind ear q 3 day SCOPOLAMINE BASE 66186490544 No Lo nger Active Bertrand Patel DO Active MACRODANTIN 100 MG ORAL CAPSULE one p.o. b.i.d. x2 weeks NITROFURANTOIN MACROCRYSTAL 91855110090 No Longer Active Bertrand Patel DO Active MACRODANTIN 100 MG ORAL CAPSULE one p.o. b.i.d. x2 weeks MACRODANTIN 100 MG ORAL CAPSULE 1745039 NITROFURANTOIN MACROCRYSTAL Inactive TRANSDERM-SCOP (1.5 MG) 1 [...] days PERMETHRIN 5 % EXTER NAL CREAM 019418 PERMETHRIN Inactive WELLBUTRIN 75 MG ORAL TABLET 2 times daily WELLBUTRIN 75 MG ORAL TABLET BUPROPION HCL Inactive CYMBALTA 30 MG ORAL CAPSULE DELAYED RELEASE PARTICLES 1 cap by mouth daily CYMBALTA 30 MG ORAL CAPSULE DELAYED RELE ASE PARTICLES 755616 DULOXETINE HCL Inactive AZITHROMYCIN 500 MG INTRAVENOUS SOLUTION RECONSTITUTED 1 po q da y AZITHROMYCIN 500 MG INTRAVENOUS SOLUTION RECONSTITUTED 20743 524045 AZITHROMYCIN Inactive CINNAMON ALPHA LIPOIC AC CMPLX CAPSULE by mouth twice a day in AM by mouth twice a day in PM CINNAMON ALPHA LIPOIC AC CMPLX CAPSULE ALPHA LIPOIC [id number] CAPS Inactive MICARDIS HCT 80-12.5 MG ORAL TABLET 1 qd 07/30 MICARDIS HCT 80-12.5 MG ORAL TABLET 121997 TELMISARTAN-HCTZ Inactive PRAVASTATIN SODIUM 20 MG ORAL TABLET 1 tablet by mouth daily at bedtime PRAVASTATIN SODIUM 20 MG ORAL TABLET 635677 PRAVASTATIN SODIUM Inactive FUROSEMIDE 20 MG ORAL TABLET 1 pill by mouth daily if needed for edema FUROSEMIDE 20 MG ORAL TABLET 185567 FUROSEMIDE Inactive METFORMIN HCL 500 MG ORAL TABLET 1 bid METFORMIN HCL 500 MG ORAL TABLET 705376 METFORMIN HCL Inactive B-12 1000 MCG ORAL CAPSULE 1 tab daily B -12 1000 MCG ORAL CAPSULE CYANOCOBALAMIN Inactive VITAMIN E 200 UNIT ORAL CAPSULE 1 cap po qd 1 VITAMIN E 200 UNIT ORAL CAPSULE 5658956 VITAMIN E Inactive [facility] MELATONIN 5-10 MG [...] po daily AZITHROMYCIN 250 MG ORAL TABLET 017259 AZITHROMY BERNARDO Inactive SYMBICORT 160-4.5 MCG/ACT INHALATION AEROSOL 2 puffs BID 9 SYMBICORT 160-4.5 MCG/ACT INHALATION AEROSOL BUDESONIDE-FORM OTEROL FUMARATE Inactive ALBUTEROL SULFATE (2.5 MG/3ML) 0.083% INHALATION NEBUL IZATION SOLUTION one vial per nebulizer every 4-6 hours as needed ALBUTEROL SULFATE (2.5 MG/3ML) 0.083% INHALATION NEBULIZATION SOLUTION 236855 ALBUTER OL SULFATE Inactive NEBULIZER use as directed NEBULIZER NEBULI ZERS Inactive TESSALON PERLES 100 MG ORAL CAPSULE 1 tablet by mouth 3 times da juan pablo TESSALON PERLES 100 MG ORAL CAPSULE 403397 BENZONATATE Inactive CYCLOBENZAPRINE HCL 10 MG ORAL TABLET Take 1 tab TID PRN for mus triston pain CYCLOBENZAPRINE HCL 10 MG ORAL TABLET 532310 CYCLOBENZA ANUJA HCL Inactive AUGMENTIN 875-125 MG ORAL TABLET 1 po BID x 10 days 18/04/06 AUGMENTIN 875-125 MG ORAL TABLET AMOXICILLIN-POT CLAVULANATE Inactive BACTROBAN 2 % EXTERNAL CREAM Apply to affected area BID for up to 10 days BACTROBAN 2 % EXTERNAL CREAM MUPIROCIN CA LCIUM Inactive VITAMIN D3 13963 UNIT ORAL CAPSULE 1 pill Week x 4 mo nths for vitamin D deficiency/osteoporosis VITAMIN D3 76387 UNIT ORAL CAPSULE CHOLECALCIFEROL Inactive BENZONATATE 200 MG ORAL CAPSULE 1 three times a day as neede d for cough BENZONATATE 200 MG ORAL CAPSULE 486990 BENZONATA TE Inactive ZITHROMAX Z-MARTIN 250 MG ORAL TABLET 2 today and then 1 daily for 4 days ZITHROMAX Z-MARTIN 250 MG ORAL TABLET 420856 AZITHR OMYCIN Inactive ADDERALL 10 MG ORAL TABLET 1 tab twice daily 2 ADDERALL 10 MG ORAL TABLET 348264 AMPHETAMINE-DEXTROAMPHETAMINE Inactive LEVAQUIN 500 MG ORAL TABLET 1 tablet by mouth daily 20 21/06/28 LEVAQUIN 500 MG ORAL TABLET 486545 LEVOFLOXACIN Inactive AMOXICILLIN 500 MG ORAL CAPSULE 2 po BID x 10 days 201 07/15/00 AMOXICILLIN 500 MG ORAL CAPSULE 739125 AMOXICILLIN Inactive AZITHROMYCIN 250 MG ORAL TABLET take 2 po today then take 1 po days 2-5 AZITHROMYCIN 250 MG ORAL TABLET 712705 AZITHROMY BERNARDO Inactive LEVAQUIN 500 MG ORAL TABLET 1 pill by mouth daily 2013 LEVAQUIN 500 MG ORAL TABLET 356664 LEVOFLOXACIN Inactive AUGMENTIN 875-125 MG ORAL TABLET [...] days 08/02 PREDNISONE 20 MG ORAL TABLET 263618 PREDNISONE Inactive CIPRO 500 MG ORAL TABLET 1 tablet by mouth twice daily CIPRO 500 MG ORAL TABLET 441371 CIPROFLOXACIN HCL Inactive DOXYCYCLINE HYCLATE 100 MG ORAL CAPSULE 1 cap by mouth twice jong ly DOXYCYCLINE HYCLATE 100 MG ORAL CAPSULE 9784558 DOXYCYCL INE HYCLATE Inactive PREDNISONE 20 MG ORAL TABLET Take 3 tabs for 3 days, t hen 2 tabs for 3 days, then 1 tab for 3 days PREDNISONE 20 MG ORAL TABLET 312 615 PREDNISONE Inactive CHERATUSSIN AC 100-10 MG/5ML ORAL SYRUP 5ml po q6hr PRN Cough 20 21/03/15 CHERATUSSIN AC 100-10 MG/5ML ORAL SYRUP 185876 GUAIFENE SIN-CODEINE Inactive Vital Signs Date Name [...] weight E&M 363 [lb_av] Weight Measure d blood pressure, diastolic, repeated by physician 84 BP fred[place]ick blood pressure, diastolic 84 mm[Hg] BP [place] blood pressure, systolic, repeated by physician 138 BP sys blood pressure, systolic 138 mm[Hg] BP sys height E&M 65 [in_us] Bdy height pulse rate E&M 88 /min Heart rate temperature E&M 98.3 [degF] Body temp erature weight E&M 361 [lb_av] Weight Measure d blood pressure, diastolic, repeated by physician 79 BP fred[place]ick blood pressure, diastolic 79 mm[Hg] BP fred[place]ick blood pressure, systolic, repeated by physician 159 BP sys blood pressure, systolic 159 mm[Hg] BP sys height E&M 65 [in_us] Bdy height pulse rate E&M 96 /min Heart rate temperature E&M 99.4 [degF] Body temp erature weight E&M 348 [lb_av] Weight Measure d Diagnostic Results Date Name Value Unit Range Description Office Visit: S/T, Fever, Cough - Microb iology Strep Screen QC Result (CLIA Waived) negative Strep Screen Lot Number (CLIA Waived) [id number] Strep Screen Exp Date (CLIA Waived) 05/02/2020 Encounters Code Encounter Date Provider Facility CPT-98485 [id number] Vst-Est Level III 16:58:04 CDT Me nae Vazquez [id number] Vst-Est Level IV 14:46:36 [employer] Foster Patel [facility] CPT-78323 Level 3 Est. Patient 12:37:30 [employer] Galilea Se [facility] CPT-20199 Level 3 Est. Patient 11:40:23 CDT Bertrand marquez [facility] CPT-47661 Level 4 Est. Patient 15:33:35 [employer] Bertrand marquez [facility] CPT-85695 Level 4 Est. Patient 12:31:54 CDT Bertrand marquez [facility] CPT-07601 Level 3 Est. Patient 11:27:00 [employer] Ike Delnua MD [facility] CPT-61712 Level 3 Est. Patient 08:50:57 [employer] Silvia Malone [facility] CPT-87034 Level 3 Est. Patient 10:04:13 CDT Bertrand marquez [facility] CPT-23362 Level 4 Est. Patient 16:02:10 [employer]ER Silvia Malone [facility] CPT-65613 Level 3 Est. Patient 13:04:54 [employer] CLE[employer]ER Silvia Are [facility] CPT-67771 Level 3 Est. Patient 12:56:37 CDT Bertrand marquez [facility] CPT-79009 Level 3 Est. Patient 19:12:03 CDT Yoli tolbert MD [facility] CPT-61351 Level 3 Est. Patient 14:36:01 CDT Yoli tolbert MD [facility] CPT-86625 Level 2 Est. Patient 08:00:22 CDT Jcarlos dc MD [facility] CPT-57338 Level 3 Est. Patient 19:06:55 CDT Bertrand marquez [facility] CPT-57788 Level 3 Est. Patient 10:08:23 [employer]ER Bertrand marquez [facility] CPT-41649 Level 3 Est. Patient 16:37:54 [employer] Bertrand marquez [facility] CPT-68223 Level 3 Est. Patient 11:31:59 [employer] Bertrand marquez [facility] CPT-43711 Level 3 Est. Patient 10:20:[address] [facility] CPT-50226 Level 3 Est. Patient 13:45:[address] [facility] CPT-07261 Level 3 Est. Patient 12:51:[address] [facility] CPT-98035 Level 3 Est. Patient 11:22:51 [employer] Yoli tolbert MD PhD [facility] CPT-01225 Level 3 Est. Patient 13:33:19 CDT Bertrand marquez [facility] Procedures Code Procedure Name Date Entry Date Standard Desc ription CPT-45306 Wound Culture - LAB USE ONLY 15:45:25 CDT 2 CPT-79863 Venipuncture Draw Fee 10:23:01 CDT CPT-J0696 Rocephin 1000 mg (Ceftriaxone) 16:20:30 [employer] CPT-62402 Abx/Therapy Injection 16:20:29 [employer] CPT-J0696 Rocephin 1gm Inj Solr 15:51:59 [employer] CPT-31729 Chest 2V Frontal and Lat 15:20:28 [employer] 07/22 CPT-33259 Breathing Tx 14:51:55 [employer] CPT-63103 Breathing Tx 09:57:16 [employer] CPT-40597 Knee comp 4/> V 11:58:06 [employer]
--- OUTSIDE RECORDS SUMMARY | 2019-11-13 09:49 | XMS REPORT | Clinical Summary ---
Author Author Admin, Enrique Adamson Organization [employer] Address Unknown Phone Unavailable Allergies, Adverse Reactions, [...] and unspecified hyperlipidemia Pharyngitis-Acute 462 Inactive Bertrand aPtel DO Acute pharyngitis Polyuria 788.42 Resolved Yoli [...] of unspecified site Pharyngitis acute 462 Active iSlvia Vazquez APRN Acute pharyngitis HEALTH SCREENING ICD-V70.0 Inactive Yoli sabillon MD PhD SCABIES ICD-133.0 Inactive Yoli Mercado MD PhD 201 07/14/20 DIABETES ICD-V18.0 Inactive Yoli Mercado MD PhD 20 14/02/29 SINUSITIS, FRONTAL, ACUTE ICD-461.1 Inactive Yoli Mercado MD PhD COUGH ICD-786.2 Inactive Yoli Mercado MD PhD 201 09/09/28 EDEMA LEG ICD-782.3 Inactive Adele Feldman BONE PULLER 201 01/01/02 SHORTNESS OF BREATH ICD-786.05 Inactive Yoli Mercado MD PhD RIB PAIN, RIGHT SIDED ICD-786.50 Inactive Yoli Mercado MD PhD KNEE PAIN, RIGHT ICD-719.46 Inactive Adele Alexusu ghn BONE PULLER Knee pain, left ICD-719.46 Inactive Adele Alexusug hn BONE PULLER Pharyngitis-Acute ICD-462 Inactive Bertrand Redmond DO Polyuria ICD-788.42 Inactive Yoli Mercado MD P Cellulitis, leg, right ICD-682.6 Inactive Yuki Deluna MD Foreign body, ear ICD-931 Inactive Yoli salazar MD PhD Fatigue ICD-780.79 Inactive Ike Deluna MD 201 12/01/06 Headache ICD-784.0 Inactive Adele Feldman BONE PULLER 2017 Cough ICD-786.2 Inactive Adele Feldman BONE PULLER 06/04 SINUSITIS, ACUTE ICD-461.9 Inactive Ike lange MD Fatigue ICD-780.79 Inactive Adele Feldman BONE PULLER 2017 Bronchitis acute with bronchospasm ICD-466.0 I nactive Bertrand Patel DO Animal bite ICD-919.8 Inactive Adele Feldman LP N Mycoplasma infection ICD-041.81 Inactive Anit a Feldman BONE PULLER Amenorrhea, secondary ICD-626.0 Inactive Clotilde Feldman LPN Left maxillary sinusitis ICD-473.0 Inactive Bertrand Patel DO Medication List Medication Instructions Start Date Stop Date Generic Name ND Status Provider Patient Instruction MODAFINIL 200 MG TABS TAKE 1/2 TABLET BY MOUTH IN THE MORNING AND TAKE 1/2 TABLET AT NOON MODAFINIL 18994845929 Active Adriana Davalos RN Active ALPRAZOLAM 0.5 MG TABS TAKE 1 TABLET BY MOUTH THREE TIMES DAILY 201 02/10/05 ALPRAZOLAM 86660690876 Active Adriana Davalos RN Active SUDAFED 12 HOUR 120 MG ORAL TABLET EXTENDED RELEASE 12 HOUR 1 pill twice daily if for congestion PSEUDOEPHEDRINE HCL 96771821037 Active Silvia Vazquez APRN Active CHERATUSSIN AC 100-10 MG/5ML ORAL SYRUP 5ml po q6hr PRN Cough 20 21/03/15 GUAIFENESIN-CODEINE 15619088772 No Longer Active Silvia Vazquez APRN Active FLUTICASONE PROPIONATE 50 MCG/ACT NASAL SUSPENSION 2 s prays per nostril daily for 2 weeks, then 1 spray each nostril PRN FLUTI CASONE PROPIONATE 98611685660 Active Silvia Vazquez APRN Active HYDROCODONE-ACETAMINOPHEN 7.5-325 MG TABS TAKE 1 TABLE T BY MOUTH EVERY SIX HOURS NEEDED FOR PAIN HYDROCODONE-ACETAMINOPHEN 89992353962 A ctive Adele Gaston ARTHUR Active EVENING PRIMROSE OIL 1000 MG ORAL CAPSULE 1 capsule once daily EVENING PRIMROSE OIL 12511855421 Active Bertrand Patel DO Active LEVAQUIN 500 MG ORAL TABLET 1 tablet by mouth daily 20 21/06/28 LEVOFLOXACIN 63072394095 No Longer Active Bertrand Patel DO Active PREDNISONE 20 MG ORAL TABLET Take 3 tabs for 3 days, t hen 2 tabs for 3 days, then 1 tab for 3 days PREDNISONE 40358567459 No Rainer faotu Active Galilea Niya MEDICAID ELIGIBILITY SPECIALIST Active DOXYCYCLINE HYCLATE 100 MG ORAL CAPSULE 1 cap by mouth twice jong ly DOXYCYCLINE HYCLATE 07680336004 No Longer Active Galilea Sell MEDICAID ELIGIBILITY SPECIALIST Active ADDERALL 10 MG ORAL TABLET 1 tab twice daily 2 AMPHETAMINE-DEXTROAMPHETAMINE 62306886716 No Longer Active Nitza Phi llips Scribe Active ZITHROMAX Z-MARTIN 250 MG ORAL TABLET 2 today and then 1 daily for 4 days AZITHROMYCIN 20639985771 No Longer Active Nitza Osman lips Scribe Active BENZONATATE 200 MG ORAL CAPSULE 1 three times a day as neede d for cough BENZONATATE 25917054160 No Longer Active Nitza Osman lips Scribe Active VITAMIN D3 29768 UNIT ORAL CAPSULE 1 pill Week x 4 mo nths for vitamin D deficiency/osteoporosis CHOLECALCIFEROL 65218587573 N o Longer Active Layla Garcia Active BACTROBAN 2 % EXTERNAL CREAM Apply to affected area BID for up to 10 days MUPIROCIN CALCIUM 42080382804 No Longer Active Ike Deluna MD Active CIPRO 500 MG ORAL TABLET 1 tablet by mouth twice daily CIPROFLOXACIN HCL 00423558430 No Longer Active Adriana Bender LPN Active AUGMENTIN 875-125 MG ORAL TABLET 1 po BID x 10 days 18/04/06 AMOXICILLIN-POT CLAVULANATE 73012852256 No Longer Active Adriana Bender LPN Active CYCLOBENZAPRINE HCL 10 MG ORAL TABLET Take 1 tab TID PRN for mus triston pain CYCLOBENZAPRINE HCL 97451756285 No Longer Active Bertrand Patel DO Active TESSALON PERLES 100 MG ORAL CAPSULE 1 tablet by mouth 3 times da juan pablo BENZONATATE 57231139166 No Longer Active Bertrand Patel DO Ac tive NEBULIZER use as directed NEBULIZERS 39494679222 No Longer Active Bertrand Patel DO Active ALBUTEROL SULFATE (2.5 MG/3ML) 0.083% INHALATION NEBUL IZATION SOLUTION one vial per nebulizer every 4-6 hours as needed ALBUTERO L SULFATE 30977947621 No Longer Active Bertrand Patel DO Active SYMBICORT 160-4.5 MCG/ACT INHALATION AEROSOL 2 puffs BID 9 BUDESONIDE-FORMOTEROL FUMARATE 10672971310 No Longer Active Bertrand Patel DO Active PREDNISONE 20 MG ORAL TABLET take 3 tabs daily for 3 d ays, 2 tabs daily for 3 days, 1 tab daily for 3 days, 1/2 tab daily for 3 days 08/02 PREDNISONE 81631296230 No Longer Active Silvia Arell MEDICAID ELIGIBILITY SPECIALIST Active AZITHROMYCIN 250 MG ORAL TABLET Take 2 tabs po today then 1 tab po daily AZITHROMYCIN 17325099095 No Longer Active Silvia Arell MEDICAID ELIGIBILITY SPECIALIST Active AUGMENTIN 875-125 MG ORAL TABLET 1 po BID x 10 days 20 19/07/13 AMOXICILLIN-POT CLAVULANATE 91259315397 No Longer Active Adriana Bender LPN Active CHEWABLE CALCIUM 500-200-40 MG-UNT-MCG ORAL TABLET CHEWABLE 1 chew tab bid CALCIUM-VITAMIN D-VITAMIN K 32745467904 Active Silvia Are ll MEDICAID ELIGIBILITY SPECIALIST Active EQ COMPLETE MULTIVIT ADULT 50+ ORAL TABLET 1 tab po bid MULTIPLE VITAMINS-MINERALS 48235685952 Active Silvia Arell MEDICAID ELIGIBILITY SPECIALIST Active LORTAB 7.5-500 MG ORAL TABLET take one po Q6 hours 201 09/12/01 HYDROCODONE-ACETAMINOPHEN 97113270784 No Longer Active Nirmal Robbins RN Active [facility] MELATONIN 5-10 MG ORAL TABLET EXTENDED RELEASE Jair e one by mouth daily at bedtime MELATONIN-PYRIDOXINE 53292935450 No Longer Acti ve Bertrand Patel DO Active VITAMIN E 200 UNIT ORAL CAPSULE 1 cap po qd VITAM IN E 45961038569 No Longer Active Bertrand Patel DO Active B-12 1000 MCG ORAL CAPSULE 1 tab daily CYANOCOB ALAMIN 43037085607 No Longer Active Bertrand Patel DO Active METFORMIN HCL 500 MG ORAL TABLET 1 bid METFOR MIN HCL 89777700272 No Longer Active Bertrand W Jorge DO Active FUROSEMIDE 20 MG ORAL TABLET 1 pill by mouth daily if needed for edema FUROSEMIDE 37901552188 No Longer Active Bertrand Patel DO Active PRAVASTATIN SODIUM 20 MG ORAL TABLET 1 tablet by mouth daily at bedtime PRAVASTATIN SODIUM 64778631762 No Longer Active Bertrand Patel DO Active AUGMENTIN 875-125 MG ORAL TABLET 1 pill by mouth twice daily 201 09/10/00 AMOXICILLIN-POT CLAVULANATE 81613146933 No Longer Active Yoli Mercado MD PhD Active LEVAQUIN 500 MG ORAL TABLET 1 pill by mouth daily 2013 LEVOFLOXACIN 92669807639 No Longer Active Yoli Mercado MD PhD Acti ve AMLODIPINE BESYLATE 5 MG ORAL TABLET 1 tablet by mouth daily for blood pressure AMLODIPINE BESYLATE 73588104436 Active Bertrand Patel DO Active MICARDIS 80 MG ORAL TABLET 1 tablet daily for blood pressure 07/30 TELMISARTAN 25913051538 Active Bertrand Patel DO Active MICARDIS HCT 80-12.5 MG ORAL TABLET 1 qd TELMISARTAN-HCTZ 68966349070 No Longer Active Bertrand Patel DO Active CINNAMON ALPHA LIPOIC AC CMPLX CAPSULE by mouth twice a day in AM by mouth twice a day in PM ALPHA LIPOIC [id number] CA PS 28969311064 No Longer Active Bertrand Patel DO Active AZITHROMYCIN 500 MG INTRAVENOUS SOLUTION RECONSTITUTED 1 po q da y AZITHROMYCIN 62407224007 No Longer Active Bertrand Patel DO A ctive CYMBALTA 30 MG ORAL CAPSULE DELAYED RELEASE PARTICLES 1 cap by mouth daily DULOXETINE HCL 34983873082 No Longer Active Bertrand marquez DO Active CYMBALTA 60 MG ORAL CAPSULE DELAYED RELEASE PARTICLES 1 cap by mouth daily DULOXETINE HCL 96444833335 Active Bertrand Patel DO Active WELLBUTRIN 75 MG ORAL TABLET 2 times daily BUPR OPION HCL 45199611337 No Longer Active Bertrand Patel DO Active PROAIR HFA 108 (90 Base) MCG/ACT INHALATION AEROSOL SO LUTION take one to two puffs po Q4-6 hour prn cough and shortness of breath ALBUTEROL SULFATE 31473708275 Active Bertrand Patel DO Active AZITHROMYCIN 250 MG ORAL TABLET take 2 po today then take 1 po days 2-5 AZITHROMYCIN 55029210103 No Longer Active Adolfo OSORIO Active PERMETHRIN 5 % EXTERNAL CREAM apply neck to toes tonig ht and then rinse off in morning. repeat at 7 days PERMETHRIN 48313621024 No Longer Active Adolfo OSORIO Active AMOXICILLIN 500 MG ORAL CAPSULE 2 po BID x 10 days 201 07/15/00 AMOXICILLIN 38852558121 No Longer Active Yoli Mercado MD PhD Acti ve INSUPEN ULTRAFIN 31G X 6 MM USE DIRECTED INSULIN PEN NEEDLE 02694963349 No Longer Active Bertrand Patel DO Active TRANSDERM-SCOP (1.5 MG) 1 MG/3DAYS TRANSDERMAL PATCH 7 2 HOUR 1 patch applied behind ear q 3 day SCOPOLAMINE BASE 62610267583 No Lo nger Active Bertrand Patel DO Active MACRODANTIN 100 MG ORAL CAPSULE one p.o. b.i.d. x2 weeks NITROFURANTOIN MACROCRYSTAL 19068283415 No Longer Active Bertrand Patel DO Active MACRODANTIN 100 MG ORAL CAPSULE one p.o. b.i.d. x2 weeks MACRODANTIN 100 MG ORAL CAPSULE 8983746 NITROFURANTOIN MACROCRYSTAL Inactive TRANSDERM-SCOP (1.5 MG) 1 [...] days PERMETHRIN 5 % EXTER NAL CREAM 379345 PERMETHRIN Inactive WELLBUTRIN 75 MG ORAL TABLET 2 times daily WELLBUTRIN 75 MG ORAL TABLET BUPROPION HCL Inactive CYMBALTA 30 MG ORAL CAPSULE DELAYED RELEASE PARTICLES 1 cap by mouth daily CYMBALTA 30 MG ORAL CAPSULE DELAYED RELE ASE PARTICLES 438916 DULOXETINE HCL Inactive AZITHROMYCIN 500 MG INTRAVENOUS SOLUTION RECONSTITUTED 1 po q da y AZITHROMYCIN 500 MG INTRAVENOUS SOLUTION RECONSTITUTED 44165 058401 AZITHROMYCIN Inactive CINNAMON ALPHA LIPOIC AC CMPLX CAPSULE by mouth twice a day in AM by mouth twice a day in PM CINNAMON ALPHA LIPOIC AC CMPLX CAPSULE ALPHA LIPOIC [id number] CAPS Inactive MICARDIS HCT 80-12.5 MG ORAL TABLET 1 qd 07/30 MICARDIS HCT 80-12.5 MG ORAL TABLET 049319 TELMISARTAN-HCTZ Inactive PRAVASTATIN SODIUM 20 MG ORAL TABLET 1 tablet by mouth daily at bedtime PRAVASTATIN SODIUM 20 MG ORAL TABLET 592954 PRAVASTATIN SODIUM Inactive FUROSEMIDE 20 MG ORAL TABLET 1 pill by mouth daily if needed for edema FUROSEMIDE 20 MG ORAL TABLET 912463 FUROSEMIDE Inactive METFORMIN HCL 500 MG ORAL TABLET 1 bid METFORMIN HCL 500 MG ORAL TABLET 607107 METFORMIN HCL Inactive B-12 1000 MCG ORAL CAPSULE 1 tab daily B -12 1000 MCG ORAL CAPSULE CYANOCOBALAMIN Inactive VITAMIN E 200 UNIT ORAL CAPSULE 1 cap po qd 1 VITAMIN E 200 UNIT ORAL CAPSULE 6969173 VITAMIN E Inactive [facility] MELATONIN 5-10 MG [...] po daily AZITHROMYCIN 250 MG ORAL TABLET 663784 AZITHROMY BERNARDO Inactive SYMBICORT 160-4.5 MCG/ACT INHALATION AEROSOL 2 puffs BID 9 SYMBICORT 160-4.5 MCG/ACT INHALATION AEROSOL BUDESONIDE-FORM OTEROL FUMARATE Inactive ALBUTEROL SULFATE (2.5 MG/3ML) 0.083% INHALATION NEBUL IZATION SOLUTION one vial per nebulizer every 4-6 hours as needed ALBUTEROL SULFATE (2.5 MG/3ML) 0.083% INHALATION NEBULIZATION SOLUTION 266594 ALBUTER OL SULFATE Inactive NEBULIZER use as directed NEBULIZER NEBULI ZERS Inactive TESSALON PERLES 100 MG ORAL CAPSULE 1 tablet by mouth 3 times da juan pablo TESSALON PERLES 100 MG ORAL CAPSULE 802367 BENZONATATE Inactive CYCLOBENZAPRINE HCL 10 MG ORAL TABLET Take 1 tab TID PRN for mus triston pain CYCLOBENZAPRINE HCL 10 MG ORAL TABLET 461366 CYCLOBENZA ANUJA HCL Inactive AUGMENTIN 875-125 MG ORAL TABLET 1 po BID x 10 days 18/04/06 AUGMENTIN 875-125 MG ORAL TABLET AMOXICILLIN-POT CLAVULANATE Inactive BACTROBAN 2 % EXTERNAL CREAM Apply to affected area BID for up to 10 days BACTROBAN 2 % EXTERNAL CREAM MUPIROCIN CA LCIUM Inactive VITAMIN D3 74445 UNIT ORAL CAPSULE 1 pill Week x 4 mo nths for vitamin D deficiency/osteoporosis VITAMIN D3 07453 UNIT ORAL CAPSULE CHOLECALCIFEROL Inactive BENZONATATE 200 MG ORAL CAPSULE 1 three times a day as neede d for cough BENZONATATE 200 MG ORAL CAPSULE 079494 BENZONATA TE Inactive ZITHROMAX Z-MARTIN 250 MG ORAL TABLET 2 today and then 1 daily for 4 days ZITHROMAX Z-MARTIN 250 MG ORAL TABLET 933044 AZITHR OMYCIN Inactive ADDERALL 10 MG ORAL TABLET 1 tab twice daily 2 ADDERALL 10 MG ORAL TABLET 300598 AMPHETAMINE-DEXTROAMPHETAMINE Inactive LEVAQUIN 500 MG ORAL TABLET 1 tablet by mouth daily 20 21/06/28 LEVAQUIN 500 MG ORAL TABLET 027703 LEVOFLOXACIN Inactive AMOXICILLIN 500 MG ORAL CAPSULE 2 po BID x 10 days 201 07/15/00 AMOXICILLIN 500 MG ORAL CAPSULE 778833 AMOXICILLIN Inactive AZITHROMYCIN 250 MG ORAL TABLET take 2 po today then take 1 po days 2-5 AZITHROMYCIN 250 MG ORAL TABLET 111671 AZITHROMY BERNARDO Inactive LEVAQUIN 500 MG ORAL TABLET 1 pill by mouth daily 2013 LEVAQUIN 500 MG ORAL TABLET 974650 LEVOFLOXACIN Inactive AUGMENTIN 875-125 MG ORAL TABLET [...] days 08/02 PREDNISONE 20 MG ORAL TABLET 086917 PREDNISONE Inactive CIPRO 500 MG ORAL TABLET 1 tablet by mouth twice daily CIPRO 500 MG ORAL TABLET 950507 CIPROFLOXACIN HCL Inactive DOXYCYCLINE HYCLATE 100 MG ORAL CAPSULE 1 cap by mouth twice jong ly DOXYCYCLINE HYCLATE 100 MG ORAL CAPSULE 3632440 DOXYCYCL INE HYCLATE Inactive PREDNISONE 20 MG ORAL TABLET Take 3 tabs for 3 days, t hen 2 tabs for 3 days, then 1 tab for 3 days PREDNISONE 20 MG ORAL TABLET 312 615 PREDNISONE Inactive CHERATUSSIN AC 100-10 MG/5ML ORAL SYRUP 5ml po q6hr PRN Cough 20 21/03/15 CHERATUSSIN AC 100-10 MG/5ML ORAL SYRUP 082890 GUAIFENE SIN-CODEINE Inactive Vital Signs Date Name [...] negative Strep Screen Lot Number (CLIA Waived) [id number] Strep Screen Exp Date (CLIA Waived) 05/02/2020 Encounters Code Encounter Date Provider Facility CPT-55014 [id number] Vst-Est Level III 16:58:04 CDT Me nae Vazquez [facility]-85574 [id number] Vst-Est Level IV 14:46:36 REAL ESTATE FIRM MANAGER Foster Patel [facility] CPT-89574 Level 3 Est. Patient 12:37:30 REAL ESTATE FIRM MANAGER Galilea Se [facility] CPT-13924 Level 3 Est. Patient 11:40:23 CDT Bertrand marquez [facility] CPT-55196 Level 4 Est. Patient 15:33:35 REAL ESTATE FIRM MANAGER Bertrand marquez [facility] CPT-48919 Level 4 Est. Patient 12:31:54 CDT Bertrand marquez [facility] CPT-40603 Level 3 Est. Patient 11:27:00 REAL ESTATE FIRM MANAGER Ike Deluna MD [facility] CPT-44838 Level 3 Est. Patient 08:50:57 REAL ESTATE FIRM MANAGER Silvia Malone [facility] CPT-38428 Level 3 Est. Patient 10:04:13 CDT Bertrand marquez [facility] CPT-85591 Level 4 Est. Patient 16:02:10 REAL ESTATE FIRM MANAGER Silvia Malone [facility] CPT-71568 Level 3 Est. Patient 13:04:54 REAL ESTATE FIRM MANAGER Silvia Are [facility] CPT-34090 Level 3 Est. Patient 12:56:37 CDT Bertrand marquez [facility] CPT-17706 Level 3 Est. Patient 19:12:03 CDT Yoli tolbert MD [facility] CPT-71949 Level 3 Est. Patient 14:36:01 CDT Yoli tolbert MD [facility] CPT-08897 Level 2 Est. Patient 08:00:22 CDT Jcarlos dc MD [facility] CPT-67132 Level 3 Est. Patient 19:06:55 CDT Bertrand marquez [facility] CPT-03460 Level 3 Est. Patient 10:08:23 REAL ESTATE FIRM MANAGER Bertrand marquez [facility] CPT-13714 Level 3 Est. Patient 16:37:54 REAL ESTATE FIRM MANAGER Bertrand marquez [facility] CPT-72323 Level 3 Est. Patient 11:31:59 REAL ESTATE FIRM MANAGER Bertrand marquez [facility] CPT-17666 Level 3 Est. Patient 10:20:08 CDT Adolfo villasenor [facility] CPT-38145 Level 3 Est. Patient 13:45:20 CDT Sanket buckley [facility] CPT-56570 Level 3 Est. Patient 12:51:06 CDT Adolfo villasenor [facility] CPT-33120 Level 3 Est. Patient 11:22:51 REAL ESTATE FIRM MANAGER Yoli tolbert MD PhD [facility] CPT-57031 Level 3 Est. Patient 13:33:19 CDT Bertrand marquez [facility] Procedures Code Procedure Name Date Entry Date Standard Desc ription CPT-99032 Wound Culture - LAB USE ONLY 15:45:25 CDT 2 CPT-16654 Venipuncture Draw Fee 10:23:01 CDT CPT-J0696 Rocephin 1000 mg (Ceftriaxone) 16:20:30 REAL ESTATE FIRM MANAGER CPT-91789 Abx/Therapy Injection 16:20:29 REAL ESTATE FIRM MANAGER CPT-J0696 Rocephin 1gm Inj Solr 15:51:59 REAL ESTATE FIRM MANAGER CPT-93731 Chest 2V Frontal and Lat 15:20:28 REAL ESTATE FIRM MANAGER 07/22 CPT-65998 Breathing Tx 14:51:55 REAL ESTATE FIRM MANAGER CPT-28155 Breathing Tx 09:57:16 REAL ESTATE FIRM MANAGER CPT-73490 Knee comp 4/> V 11:58:06 REAL ESTATE FIRM MANAGER
--- OUTSIDE RECORDS SUMMARY | 2019-11-13 09:49 | XMS REPORT | Clinical Summary ---
Author Author Admin, Enrique Adamson Organization [employer] Address Unknown Phone Unavailable Allergies, Adverse Reactions, Alerts Allergy Name Reaction Description Start Date Severity Status Pr ovider BYETTA 10 MCG PEN Critical Active Lilai Clemons RN METAMUCIL Critical Active Bertrand Patel [...] mention of infection Mycoplasma infection 041.81 Resolved Abeil ti Mullins Scribe Mycoplasma infection in cond [...] 09/09/28 EDEMA LEG ICD-782.3 Inactive Adele Feldman PROFILING 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 201 01/01/02 SHORTNESS OF BREATH ICD-786.05 Inactive Yoli Mercado MD PhD RIB PAIN, RIGHT SIDED ICD-786.50 Inactive Yoli Mercado MD PhD KNEE PAIN, RIGHT ICD-719.46 Inactive Adele Alexusu ghn PROFILING 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 Knee pain, left ICD-719.46 Inactive Adele Alexusug hn PROFILING 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 Pharyngitis-Acute ICD-462 Inactive Bertrand Redmond DO Polyuria ICD-788.42 Inactive Yoli Mercado MD P Cellulitis, leg, right ICD-682.6 Inactive Yuki Deluna MD Foreign body, ear ICD-931 Inactive Yoli salazar MD PhD Fatigue ICD-780.79 Inactive Ike Deluna MD 201 12/01/06 Headache ICD-784.0 Inactive Adele Feldman PROFILING 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 2017 Cough ICD-786.2 Inactive Adele Feldman PROFILING 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 06/04 SINUSITIS, ACUTE ICD-461.9 Inactive Ike lange MD Fatigue ICD-780.79 Inactive Adele Feldman PROFILING 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 2017 Bronchitis acute with bronchospasm ICD-466.0 I nactive Bertrand Patel DO Animal bite ICD-919.8 Inactive Adele Feldman LP N Mycoplasma infection ICD-041.81 Inactive Anit a Feldman PROFILING 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 Amenorrhea, secondary ICD-626.0 Inactive Clotilde alcantara Gaston HUNGN Left maxillary sinusitis ICD-473.0 Inactive Bertrand Patel DO Medication List Medication Instructions Start Date Stop Date Generic Name ND Status Provider Patient Instruction SUDAFED 12 HOUR 120 MG ORAL TABLET EXTENDED RELEASE 12 HOUR 1 pill twice daily if for congestion PSEUDOEPHEDRINE HCL 01236756859 Active Silvia Arekalin TOVARN Active CHERATUSSIN AC 100-10 MG/5ML ORAL SYRUP 5ml po q6hr PRN Cough 20 21/03/15 GUAIFENESIN-CODEINE 44501543212 Active Silvia Arell RAIL CAR REPAIRMAN Active FLUTICASONE PROPIONATE 50 MCG/ACT NASAL SUSPENSION 2 s prays per nostril daily for 2 weeks, then 1 spray each nostril PRN FLUTI CASONE PROPIONATE 90653105085 Active Silvia Faisalkalin TOVARN Active MODAFINIL 200 MG TABS TAKE 1/2 TABLET BY MOUTH IN THE MORNING AND 1/2 TABLET BY MOUTH AT NOON MODAFINIL 54253597742 Active Adele Gaston HUNGN Active HYDROCODONE-ACETAMINOPHEN 7.5-325 MG TABS TAKE 1 TABLE T BY MOUTH EVERY SIX HOURS NEEDED FOR PAIN HYDROCODONE-ACETAMINOPHEN 31287081861 A ctive Adele Feldman PROFILING 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 Active ALPRAZOLAM 0.5 MG TABS TAKE 1 TABLET THREE TIMES DAILY ALPRAZOLAM 96156109070 Active Adele Feldman LPN Active EVENING PRIMROSE OIL 1000 MG ORAL CAPSULE 1 capsule once daily EVENING PRIMROSE OIL 90467548282 Active Bertrand Patel DO Active LEVAQUIN 500 MG ORAL TABLET 1 tablet by mouth daily 20 21/06/28 LEVOFLOXACIN 28624177760 No Longer Active Bertrand Patel DO Active PREDNISONE 20 MG ORAL TABLET Take 3 tabs for 3 days, t hen 2 tabs for 3 days, then 1 tab for 3 days PREDNISONE 55804642750 No Rainer fatou Active Galilea Sell RAIL CAR REPAIRMAN Active DOXYCYCLINE HYCLATE 100 MG ORAL CAPSULE 1 cap by mouth twice jong ly DOXYCYCLINE HYCLATE 42541350588 No Longer Active Galilea Sell RAIL CAR REPAIRMAN Active ADDERALL 10 MG ORAL TABLET 1 tab twice daily 2 AMPHETAMINE-DEXTROAMPHETAMINE 40671629123 No Longer Active Nitza Phi llips Scribe Active ZITHROMAX Z-MARTIN 250 MG ORAL TABLET 2 today and then 1 daily for 4 days AZITHROMYCIN 89943330079 No Longer Active Nitza Osman lips Scribe Active BENZONATATE 200 MG ORAL CAPSULE 1 three times a day as neede d for cough BENZONATATE 48730543680 No Longer Active Nitza Osman lips Scribe Active VITAMIN D3 32858 UNIT ORAL CAPSULE 1 pill Week x 4 mo nths for vitamin D deficiency/osteoporosis CHOLECALCIFEROL 98127423502 N o Longer Active Layla Garcia Active BACTROBAN 2 % EXTERNAL CREAM Apply to affected area BID for up to 10 days MUPIROCIN CALCIUM 00815727740 No Longer Active Ike Deluna MD Active CIPRO 500 MG ORAL TABLET 1 tablet by mouth twice daily CIPROFLOXACIN HCL 97254450248 No Longer Active Adriana Bender LPN Active AUGMENTIN 875-125 MG ORAL TABLET 1 po BID x 10 days 18/04/06 AMOXICILLIN-POT CLAVULANATE 58187227557 No Longer Active Adriana Bender LPN Active CYCLOBENZAPRINE HCL 10 MG ORAL TABLET Take 1 tab TID PRN for mus triston pain CYCLOBENZAPRINE HCL 32649406290 No Longer Active Bertrand Patel DO Active TESSALON PERLES 100 MG ORAL CAPSULE 1 tablet by mouth 3 times da juan pablo BENZONATATE 29858465171 No Longer Active Bertrand Patel DO Ac tive NEBULIZER use as directed NEBULIZERS 68969463191 No Longer Active Bertrand Patel DO Active ALBUTEROL SULFATE (2.5 MG/3ML) 0.083% INHALATION NEBUL IZATION SOLUTION one vial per nebulizer every 4-6 hours as needed ALBUTERO L SULFATE 41320599053 No Longer Active Bertrand Patel DO Active SYMBICORT 160-4.5 MCG/ACT INHALATION AEROSOL 2 puffs BID 9 BUDESONIDE-FORMOTEROL FUMARATE 83837220942 No Longer Active Bertrand Patel DO Active PREDNISONE 20 MG ORAL TABLET take 3 tabs daily for 3 d ays, 2 tabs daily for 3 days, 1 tab daily for 3 days, 1/2 tab daily for 3 days 08/02 PREDNISONE 57004238674 No Longer Active Silvia Vazquez RAIL CAR REPAIRMAN Active AZITHROMYCIN 250 MG ORAL TABLET Take 2 tabs po today then 1 tab po daily AZITHROMYCIN 90258234752 No Longer Active Silvia Arell RAIL CAR REPAIRMAN Active AUGMENTIN 875-125 MG ORAL TABLET 1 po BID x 10 days 20 19/07/13 AMOXICILLIN-POT CLAVULANATE 01649431348 No Longer Active Adriana Bender LPN Active CHEWABLE CALCIUM 500-200-40 MG-UNT-MCG ORAL TABLET CHEWABLE 1 chew tab bid CALCIUM-VITAMIN D-VITAMIN K 83319421280 Active Silvia Are ll RAIL CAR REPAIRMAN Active EQ COMPLETE MULTIVIT ADULT 50+ ORAL TABLET 1 tab po bid MULTIPLE VITAMINS-MINERALS 62678755857 Active Silvia Arell RAIL CAR REPAIRMAN Active LORTAB 7.5-500 MG ORAL TABLET take one po Q6 hours 201 09/12/01 HYDROCODONE-ACETAMINOPHEN 81673173404 No Longer Active Nirmal Robbins RN Active [facility] MELATONIN 5-10 MG ORAL TABLET EXTENDED RELEASE Jair e one by mouth daily at bedtime MELATONIN-PYRIDOXINE 89348548981 No Longer Acti ve Bertrand Patel DO Active VITAMIN E 200 UNIT ORAL CAPSULE 1 cap po qd VITAM IN E 50483113517 No Longer Active Bertrand Patel DO Active B-12 1000 MCG ORAL CAPSULE 1 tab daily CYANOCOB ALAMIN 85042738325 No Longer Active Bertrand Patel DO Active METFORMIN HCL 500 MG ORAL TABLET 1 bid METFOR MIN HCL 69052479281 No Longer Active Bertrand W Jorge DO Active FUROSEMIDE 20 MG ORAL TABLET 1 pill by mouth daily if needed for edema FUROSEMIDE 02534385324 No Longer Active Bertrand Patel DO Active PRAVASTATIN SODIUM 20 MG ORAL TABLET 1 tablet by mouth daily at bedtime PRAVASTATIN SODIUM 75247845218 No Longer Active Bertrand Patel DO Active AUGMENTIN 875-125 MG ORAL TABLET 1 pill by mouth twice daily 201 09/10/00 AMOXICILLIN-POT CLAVULANATE 43029258432 No Longer Active Yoli Mercado MD PhD Active LEVAQUIN 500 MG ORAL TABLET 1 pill by mouth daily 2013 LEVOFLOXACIN 40368798335 No Longer Active Yoli Mercado MD PhD Acti ve AMLODIPINE BESYLATE 5 MG ORAL TABLET 1 tablet by mouth daily for blood pressure AMLODIPINE BESYLATE 47604001373 Active Bertrand Patel DO Active MICARDIS 80 MG ORAL TABLET 1 tablet daily for blood pressure 07/30 TELMISARTAN 87639226851 Active Bertrand Patel DO Active MICARDIS HCT 80-12.5 MG ORAL TABLET 1 qd TELMISARTAN-HCTZ 29723380953 No Longer Active Bertrand Patel DO Active CINNAMON ALPHA LIPOIC AC CMPLX CAPSULE by mouth twice a day in AM by mouth twice a day in PM ALPHA LIPOIC [id number] CA PS 87607223365 No Longer Active Bertrand Patel DO Active AZITHROMYCIN 500 MG INTRAVENOUS SOLUTION RECONSTITUTED 1 po q da y AZITHROMYCIN 52840678858 No Longer Active Bertrand Patel DO A ctive CYMBALTA 30 MG ORAL CAPSULE DELAYED RELEASE PARTICLES 1 cap by mouth daily DULOXETINE HCL 85846767089 No Longer Active Bertrand marquez DO Active CYMBALTA 60 MG ORAL CAPSULE DELAYED RELEASE PARTICLES 1 cap by mouth daily DULOXETINE HCL 61444228887 Active Bertrand Patel DO Active WELLBUTRIN 75 MG ORAL TABLET 2 times daily BUPR OPION HCL 94147530054 No Longer Active Bertrand Patel DO Active PROAIR HFA 108 (90 Base) MCG/ACT INHALATION AEROSOL SO LUTION take one to two puffs po Q4-6 hour prn cough and shortness of breath ALBUTEROL SULFATE 32739156857 Active Bertrand Patel DO Active AZITHROMYCIN 250 MG ORAL TABLET take 2 po today then take 1 po days 2-5 AZITHROMYCIN 80043658701 No Longer Active Adolfo traore PA Active PERMETHRIN 5 % EXTERNAL CREAM apply neck to toes tonig ht and then rinse off in morning. repeat at 7 days PERMETHRIN 99885535712 No Longer Active Adolfo OSORIO Active AMOXICILLIN 500 MG ORAL CAPSULE 2 po BID x 10 days 201 07/15/00 AMOXICILLIN 57839595258 No Longer Active Yoli Mercado MD PhD Acti ve INSUPEN ULTRAFIN 31G X 6 MM USE DIRECTED INSULIN PEN NEEDLE 63528155646 No Longer Active Bertrand Patel DO Active TRANSDERM-SCOP (1.5 MG) 1 MG/3DAYS TRANSDERMAL PATCH 7 2 HOUR 1 patch applied behind ear q 3 day SCOPOLAMINE BASE 93545903915 No Lo nger Active Bertrand Patel DO Active MACRODANTIN 100 MG ORAL CAPSULE one p.o. b.i.d. x2 weeks NITROFURANTOIN MACROCRYSTAL 10539502733 No Longer Active Bertrand Patel DO Active MACRODANTIN 100 MG ORAL CAPSULE one p.o. b.i.d. x2 weeks MACRODANTIN 100 MG ORAL CAPSULE 7951864 NITROFURANTOIN MACROCRYSTAL Inactive TRANSDERM-SCOP (1.5 MG) 1 [...] days PERMETHRIN 5 % EXTER NAL CREAM 453640 PERMETHRIN Inactive WELLBUTRIN 75 MG ORAL TABLET 2 times daily WELLBUTRIN 75 MG ORAL TABLET BUPROPION HCL Inactive CYMBALTA 30 MG ORAL CAPSULE DELAYED RELEASE PARTICLES 1 cap by mouth daily CYMBALTA 30 MG ORAL CAPSULE DELAYED RELE ASE PARTICLES 457222 DULOXETINE HCL Inactive AZITHROMYCIN 500 MG INTRAVENOUS SOLUTION RECONSTITUTED 1 po q da y AZITHROMYCIN 500 MG INTRAVENOUS SOLUTION RECONSTITUTED 24395 806504 AZITHROMYCIN Inactive CINNAMON ALPHA LIPOIC AC CMPLX CAPSULE by mouth twice a day in AM by mouth twice a day in PM CINNAMON ALPHA LIPOIC AC CMPLX CAPSULE ALPHA LIPOIC [id number] CAPS Inactive MICARDIS HCT 80-12.5 MG ORAL TABLET 1 qd 07/30 MICARDIS HCT 80-12.5 MG ORAL TABLET 036681 TELMISARTAN-HCTZ Inactive PRAVASTATIN SODIUM 20 MG ORAL TABLET 1 tablet by mouth daily at bedtime PRAVASTATIN SODIUM 20 MG ORAL TABLET 570607 PRAVASTATIN SODIUM Inactive FUROSEMIDE 20 MG ORAL TABLET 1 pill by mouth daily if needed for edema FUROSEMIDE 20 MG ORAL TABLET 911790 FUROSEMIDE Inactive METFORMIN HCL 500 MG ORAL TABLET 1 bid METFORMIN HCL 500 MG ORAL TABLET 243605 METFORMIN HCL Inactive B-12 1000 MCG ORAL CAPSULE 1 tab daily B -12 1000 MCG ORAL CAPSULE CYANOCOBALAMIN Inactive VITAMIN E 200 UNIT ORAL CAPSULE 1 cap po qd 1 VITAMIN E 200 UNIT ORAL CAPSULE 0382782 VITAMIN E Inactive [facility] MELATONIN 5-10 MG [...] po daily AZITHROMYCIN 250 MG ORAL TABLET 123414 AZITHROMY BERNARDO Inactive SYMBICORT 160-4.5 MCG/ACT INHALATION AEROSOL 2 puffs BID 9 SYMBICORT 160-4.5 MCG/ACT INHALATION AEROSOL BUDESONIDE-FORM OTEROL FUMARATE Inactive ALBUTEROL SULFATE (2.5 MG/3ML) 0.083% INHALATION NEBUL IZATION SOLUTION one vial per nebulizer every 4-6 hours as needed ALBUTEROL SULFATE (2.5 MG/3ML) 0.083% INHALATION NEBULIZATION SOLUTION 726989 ALBUTER OL SULFATE Inactive NEBULIZER use as directed NEBULIZER NEBULI ZERS Inactive TESSALON PERLES 100 MG ORAL CAPSULE 1 tablet by mouth 3 times da juan pablo TESSALON PERLES 100 MG ORAL CAPSULE 669099 BENZONATATE Inactive CYCLOBENZAPRINE HCL 10 MG ORAL TABLET Take 1 tab TID PRN for mus triston pain CYCLOBENZAPRINE HCL 10 MG ORAL TABLET 796351 CYCLOBENZA ANUJA HCL Inactive AUGMENTIN 875-125 MG ORAL TABLET 1 po BID x 10 days 18/04/06 AUGMENTIN 875-125 MG ORAL TABLET AMOXICILLIN-POT CLAVULANATE Inactive BACTROBAN 2 % EXTERNAL CREAM Apply to affected area BID for up to 10 days BACTROBAN 2 % EXTERNAL CREAM MUPIROCIN CA LCIUM Inactive VITAMIN D3 90525 UNIT ORAL CAPSULE 1 pill Week x 4 mo nths for vitamin D deficiency/osteoporosis VITAMIN D3 76999 UNIT ORAL CAPSULE CHOLECALCIFEROL Inactive BENZONATATE 200 MG ORAL CAPSULE 1 three times a day as neede d for cough BENZONATATE 200 MG ORAL CAPSULE 468559 BENZONATA TE Inactive ZITHROMAX Z-MARTIN 250 MG ORAL TABLET 2 today and then 1 daily for 4 days ZITHROMAX Z-MARTIN 250 MG ORAL TABLET 640063 AZITHR OMYCIN Inactive ADDERALL 10 MG ORAL TABLET 1 tab twice daily 2 ADDERALL 10 MG ORAL TABLET 326637 AMPHETAMINE-DEXTROAMPHETAMINE Inactive LEVAQUIN 500 MG ORAL TABLET 1 tablet by mouth daily 21/06/28 LEVAQUIN 500 MG ORAL TABLET 681343 LEVOFLOXACIN Inactive AMOXICILLIN 500 MG ORAL CAPSULE 2 po BID x 10 days 201 07/15/00 AMOXICILLIN 500 MG ORAL CAPSULE 672077 AMOXICILLIN Inactive AZITHROMYCIN 250 MG ORAL TABLET take 2 po today then take 1 po days 2-5 AZITHROMYCIN 250 MG ORAL TABLET 747858 AZITHROMY BERNARDO Inactive LEVAQUIN 500 MG ORAL TABLET 1 pill by mouth daily 2013 LEVAQUIN 500 MG ORAL TABLET 376324 LEVOFLOXACIN Inactive AUGMENTIN 875-125 MG ORAL TABLET [...] days 08/02 PREDNISONE 20 MG ORAL TABLET 627225 PREDNISONE Inactive CIPRO 500 MG ORAL TABLET 1 tablet by mouth twice daily CIPRO 500 MG ORAL TABLET 303214 CIPROFLOXACIN HCL Inactive DOXYCYCLINE HYCLATE 100 MG ORAL CAPSULE 1 cap by mouth twice jong ly DOXYCYCLINE HYCLATE 100 MG ORAL CAPSULE 6246542 DOXYCYCL INE HYCLATE Inactive PREDNISONE 20 MG ORAL TABLET Take 3 tabs for 3 days, t hen 2 tabs for 3 days, then 1 tab for 3 days PREDNISONE 20 MG ORAL TABLET 312 615 PREDNISONE Inactive Vital Signs Date Name Value Unit [...] negative Strep Screen Lot Number (CLIA Waived) [id number] Strep Screen Exp Date (CLIA Waived) 05/02/2020 Encounters Code Encounter Date Provider Facility CPT-14674 [id number] Vst-Est Level III 16:58:04 CDT Nc nae Arell [facility]-81395 [id number] Vst-Est Level IV 14:46:36 FLOORING HELPER Foster Patel [facility]-72137 Level 3 Est. Patient 12:37:30 FLOORING HELPER Galilea Se [facility]-68289 Level 3 Est. Patient 11:40:23 CDT Bertrand marquez [facility] CPT-92660 Level 4 Est. Patient 15:33:35 FLOORING HELPER Bertrand marquez [facility]-62416 Level 4 Est. Patient 12:31:54 CDT Bertrand marquez [facility]-82689 Level 3 Est. Patient 11:27:00 FLOORING HELPER Ike Deluna MD [facility]-99704 Level 3 Est. Patient 08:50:57 FLOORING HELPER Silvia Are [facility]-86569 Level 3 Est. Patient 10:04:13 CDT Bertrand marquez [facility]-48675 Level 4 Est. Patient 16:02:10 FLOORING HELPER Silvia Are [facility]-18711 Level 3 Est. Patient 13:04:54 FLOORING HELPER Silvia Are [facility]-61510 Level 3 Est. Patient 12:56:37 CDT Bertrand marquez [facility] CPT-23324 Level 3 Est. Patient 19:12:03 CDT Yoli tolbert MD [facility]-86329 Level 3 Est. Patient 14:36:01 CDT Yoli tolbert MD [facility]-49322 Level 2 Est. Patient 08:00:22 CDT Jcarlos dc MD [facility]-42322 Level 3 Est. Patient 19:06:55 CDT Bertrand marquez [facility]-61900 Level 3 Est. Patient 10:08:23 FLOORING HELPER Bertrand marquez [facility] CPT-02547 Level 3 Est. Patient 16:37:54 FLOORING HELPER Bertrand marquez [facility] CPT-72768 Level 3 Est. Patient 11:31:59 FLOORING HELPER Bertrand marquez [facility] CPT-36981 Level 3 Est. Patient 10:20:08 CDT Adolfo villasenor [facility] CPT-04817 Level 3 Est. Patient 13:45:20 CDT Sanket oJsekelvin buckley [facility] CPT-42810 Level 3 Est. Patient 12:51:06 CDT Adolfo villasenor [facility] CPT-57162 Level 3 Est. Patient 11:22:51 FLOORING HELPER Yoli tolbert MD PhD [facility] CPT-53364 Level 3 Est. Patient 13:33:19 CDT Bertrand marquez [facility] Procedures Code Procedure Name Date Entry Date Standard Desc ription CPT-74963 Wound Culture - LAB USE ONLY 15:45:25 CDT 2 CPT-84531 Venipuncture Draw Fee 10:23:01 CDT CPT-J0696 Rocephin 1000 mg (Ceftriaxone) 16:20:30 FLOORING HELPER CPT-37329 Abx/Therapy Injection 16:20:29 FLOORING HELPER CPT-J0696 Rocephin 1gm Inj Solr 15:51:59 FLOORING HELPER CPT-86453 Chest 2V Frontal and Lat 15:20:28 FLOORING HELPER 07/22 CPT-47204 Breathing Tx 14:51:55 FLOORING HELPER CPT-05358 Breathing Tx 09:57:16 FLOORING HELPER CPT-58035 Knee comp 4/> V 11:58:06 FLOORING HELPER
[2019-11-13 09:50] LABS: BASOPHILS % (AUTO) 1 % (0-10); EOSINOPHILS # (AUTO) 0.4 10^3/uL (0.0-0.3); EOSINOPHILS % (AUTO) 6 % (0-10); HEMATOCRIT 42 % (35-52); HEMOGLOBIN 12.5 G/DL (11.5-16.0); LYMPHOCYTES % (AUTO) 29 % (12-44); MEAN CORPUSCULAR HEMOGLOBIN 27 PG (25-34); MEAN CORPUSCULAR HGB CONC 30 G/DL (32-36); MEAN CORPUSCULAR VOLUME 90 FL (80-99); MEAN PLATELET VOLUME 10.1 FL (7.4-10.4); MONOCYTES # (AUTO) 0.8 X 10^3 (0.0-1.0); MONOCYTES % (AUTO) 11 % (0-12); NEUTROPHILS # (AUTO) 3.6 X 10^3 (1.8-7.8); NEUTROPHILS % (AUTO) 54 % (42-75); PLATELET COUNT 313 10^3/uL (130-400); RED CELL DISTRIBUTION WIDTH 16.9 % (10.0-14.5); WHITE BLOOD COUNT 6.8 10^3/uL (4.3-11.0)
--- OUTSIDE RECORDS SUMMARY | 2019-11-13 09:50 | XMS REPORT | Clinical Summary ---
Author Author Admin, Enrique Adamson Organization [employer] Address Unknown Phone Unavailable Allergies, Adverse Reactions, [...] 09/09/28 EDEMA LEG ICD-782.3 Inactive Adele Feldman PLATFORM LOADER 201 01/01/02 SHORTNESS OF BREATH ICD-786.05 Inactive Yoli Mercado MD PhD RIB PAIN, RIGHT SIDED ICD-786.50 Inactive Yoli Mercado MD PhD KNEE PAIN, RIGHT ICD-719.46 Inactive Adele Alexusu ghn PLATFORM LOADER Knee pain, left ICD-719.46 Inactive Adele Alexusug hn PLATFORM LOADER Pharyngitis-Acute ICD-462 Inactive Bertrand Redmond DO Polyuria ICD-788.42 Inactive Yoli Mercado MD P Cellulitis, leg, right ICD-682.6 Inactive Yuki Deluna MD Foreign body, ear ICD-931 Inactive Yoli salazar MD PhD Fatigue ICD-780.79 Inactive Ike Deluna MD 201 12/01/06 Headache ICD-784.0 Inactive Adele Feldman PLATFORM LOADER 2017 Cough ICD-786.2 Inactive Adele Feldman PLATFORM LOADER 06/04 SINUSITIS, ACUTE ICD-461.9 Inactive Ike lange MD Fatigue ICD-780.79 Inactive Adele Feldman PLATFORM LOADER 2017 Bronchitis acute with bronchospasm ICD-466.0 I nactive Bertrand Patel DO Animal bite ICD-919.8 Inactive Adele Feldman LP N Mycoplasma infection ICD-041.81 Inactive Anit a Feldman PLATFORM LOADER Amenorrhea, secondary ICD-626.0 Inactive Clotilde alcantara Gaston HUNGN Left maxillary sinusitis ICD-473.0 Inactive Bertrand Patel DO Medication List Medication Instructions Start Date Stop Date Generic Name ND Status Provider Patient Instruction SUDAFED 12 HOUR 120 MG ORAL TABLET EXTENDED RELEASE 12 HOUR 1 pill twice daily if for congestion PSEUDOEPHEDRINE HCL 21595772355 Active Silvia Arekalin TOVARN Active CHERATUSSIN AC 100-10 MG/5ML ORAL SYRUP 5ml po q6hr PRN Cough 20 21/03/15 GUAIFENESIN-CODEINE 67932835565 Active Silvia Arell [employer] Active FLUTICASONE PROPIONATE 50 MCG/ACT NASAL SUSPENSION 2 s prays per nostril daily for 2 weeks, then 1 spray each nostril PRN FLUTI CASONE PROPIONATE 12206943750 Active Silvia Faisalkalin TOVARN Active MODAFINIL 200 MG TABS TAKE 1/2 TABLET BY MOUTH IN THE MORNING AND 1/2 TABLET BY MOUTH AT NOON MODAFINIL 77637026237 Active Adele Gaston HUNGN Active HYDROCODONE-ACETAMINOPHEN 7.5-325 MG TABS TAKE 1 TABLE T BY MOUTH EVERY SIX HOURS NEEDED FOR PAIN HYDROCODONE-ACETAMINOPHEN 90656837642 A ctive Adele Feldman PLATFORM LOADER Active ALPRAZOLAM 0.5 MG TABS TAKE 1 TABLET THREE TIMES DAILY ALPRAZOLAM 56328497353 Active Adele Feldman LPN Active EVENING PRIMROSE OIL 1000 MG ORAL CAPSULE 1 capsule once daily EVENING PRIMROSE OIL 27773531066 Active Bertrand Patel DO Active LEVAQUIN 500 MG ORAL TABLET 1 tablet by mouth daily 20 21/06/28 LEVOFLOXACIN 78598424990 No Longer Active Bertrand Patel DO Active PREDNISONE 20 MG ORAL TABLET Take 3 tabs for 3 days, t hen 2 tabs for 3 days, then 1 tab for 3 days PREDNISONE 49414174595 No Rainer fatou Active Galilea Sell [employer] JOB TITLES Active DOXYCYCLINE HYCLATE 100 MG ORAL CAPSULE 1 cap by mouth twice jong ly DOXYCYCLINE HYCLATE 66688443402 No Longer Active Galilea Sell [employer] TIT[employer] Active ADDERALL 10 MG ORAL TABLET 1 tab twice daily 2 AMPHETAMINE-DEXTROAMPHETAMINE 52397887748 No Longer Active Nitza Phi llips Scribe Active ZITHROMAX Z-MARTIN 250 MG ORAL TABLET 2 today and then 1 daily for 4 days AZITHROMYCIN 75071543043 No Longer Active Nitza Osman lips Scribe Active BENZONATATE 200 MG ORAL CAPSULE 1 three times a day as neede d for cough BENZONATATE 65233708121 No Longer Active Nitza Osman lips Scribe Active VITAMIN D3 85101 UNIT ORAL CAPSULE 1 pill Week x 4 mo nths for vitamin D deficiency/osteoporosis CHOLECALCIFEROL 19395077415 N o Longer Active Layla Garcia Active BACTROBAN 2 % EXTERNAL CREAM Apply to affected area BID for up to 10 days MUPIROCIN CALCIUM 52783941531 No Longer Active Ike Deluna MD Active CIPRO 500 MG ORAL TABLET 1 tablet by mouth twice daily CIPROFLOXACIN HCL 35949683354 No Longer Active Adriana Bender LPN Active AUGMENTIN 875-125 MG ORAL TABLET 1 po BID x 10 days 18/04/06 AMOXICILLIN-POT CLAVULANATE 98748278439 No Longer Active Adriana Bender LPN Active CYCLOBENZAPRINE HCL 10 MG ORAL TABLET Take 1 tab TID PRN for mus triston pain CYCLOBENZAPRINE HCL 48095071400 No Longer Active Bertrand Patel DO Active TESSALON PERLES 100 MG ORAL CAPSULE 1 tablet by mouth 3 times da juan pablo BENZONATATE 92806033127 No Longer Active Bertrand Patel DO Ac tive NEBULIZER use as directed NEBULIZERS 05398945931 No Longer Active Bertrand Patel DO Active ALBUTEROL SULFATE (2.5 MG/3ML) 0.083% INHALATION NEBUL IZATION SOLUTION one vial per nebulizer every 4-6 hours as needed ALBUTERO L SULFATE 65617474146 No Longer Active Bertrand Patel DO Active SYMBICORT 160-4.5 MCG/ACT INHALATION AEROSOL 2 puffs BID 9 BUDESONIDE-FORMOTEROL FUMARATE 62384517776 No Longer Active Bertrand Patel DO Active PREDNISONE 20 MG ORAL TABLET take 3 tabs daily for 3 d ays, 2 tabs daily for 3 days, 1 tab daily for 3 days, 1/2 tab daily for 3 days 08/02 PREDNISONE 87051089190 No Longer Active Silvia Vazquez [employer] Active AZITHROMYCIN 250 MG ORAL TABLET Take 2 tabs po today then 1 tab po daily AZITHROMYCIN 11700132987 No Longer Active Silvia Arell [employer] TIT[employer] Active AUGMENTIN 875-125 MG ORAL TABLET 1 po BID x 10 days 20 19/07/13 AMOXICILLIN-POT CLAVULANATE 32357021130 No Longer Active Adriana Bender LPN Active CHEWABLE CALCIUM 500-200-40 MG-UNT-MCG ORAL TABLET CHEWABLE 1 chew tab bid CALCIUM-VITAMIN D-VITAMIN K 49930230002 Active Silvia Are ll REAL ESTATE JOB TITLES Active EQ COMPLETE MULTIVIT ADULT 50+ ORAL TABLET 1 tab po bid MULTIPLE VITAMINS-MINERALS 16397815580 Active Silvia Arell [employer] Active LORTAB 7.5-500 MG ORAL TABLET take one po Q6 hours 201 09/12/01 HYDROCODONE-ACETAMINOPHEN 81838654672 No Longer Active Nirmal Robbins RN Active [facility] MELATONIN 5-10 MG ORAL TABLET EXTENDED RELEASE Jair e one by mouth daily at bedtime MELATONIN-PYRIDOXINE 70902965767 No Longer Acti ve Bertrand Patel DO Active VITAMIN E 200 UNIT ORAL CAPSULE 1 cap po qd VITAM IN E 36835003629 No Longer Active Bertrand Patel DO Active B-12 1000 MCG ORAL CAPSULE 1 tab daily CYANOCOB ALAMIN 74856596424 No Longer Active Bertrand Patel DO Active METFORMIN HCL 500 MG ORAL TABLET 1 bid METFOR MIN HCL 85562986282 No Longer Active Bertrand W Jorge DO Active FUROSEMIDE 20 MG ORAL TABLET 1 pill by mouth daily if needed for edema FUROSEMIDE 22123153049 No Longer Active Bertrand Patel DO Active PRAVASTATIN SODIUM 20 MG ORAL TABLET 1 tablet by mouth daily at bedtime PRAVASTATIN SODIUM 53426887792 No Longer Active Bertrand Patel DO Active AUGMENTIN 875-125 MG ORAL TABLET 1 pill by mouth twice daily 201 09/10/00 AMOXICILLIN-POT CLAVULANATE 82147244173 No Longer Active Yoli Mercado MD PhD Active LEVAQUIN 500 MG ORAL TABLET 1 pill by mouth daily 2013 LEVOFLOXACIN 93774603106 No Longer Active Yoli Mercado MD PhD Acti ve AMLODIPINE BESYLATE 5 MG ORAL TABLET 1 tablet by mouth daily for blood pressure AMLODIPINE BESYLATE 12384223817 Active Bertrand Patel DO Active MICARDIS 80 MG ORAL TABLET 1 tablet daily for blood pressure 07/30 TELMISARTAN 91575095777 Active Bertrand Patel DO Active MICARDIS HCT 80-12.5 MG ORAL TABLET 1 qd TELMISARTAN-HCTZ 42280166990 No Longer Active Bertrand Patel DO Active CINNAMON ALPHA LIPOIC AC CMPLX CAPSULE by mouth twice a day in AM by mouth twice a day in PM ALPHA LIPOIC VHKX-PR-NYVAHONI CA PS 10289674241 No Longer Active Bertrand Patel DO Active AZITHROMYCIN 500 MG INTRAVENOUS SOLUTION RECONSTITUTED 1 po q da y AZITHROMYCIN 92264378142 No Longer Active Bertrand Patel DO A ctive CYMBALTA 30 MG ORAL CAPSULE DELAYED RELEASE PARTICLES 1 cap by mouth daily DULOXETINE HCL 77879578321 No Longer Active Bertrand marquez DO Active CYMBALTA 60 MG ORAL CAPSULE DELAYED RELEASE PARTICLES 1 cap by mouth daily DULOXETINE HCL 49454211040 Active Bertrand Patel DO Active WELLBUTRIN 75 MG ORAL TABLET 2 times daily BUPR OPION HCL 54957023606 No Longer Active Bertrand Patel DO Active PROAIR HFA 108 (90 Base) MCG/ACT INHALATION AEROSOL SO LUTION take one to two puffs po Q4-6 hour prn cough and shortness of breath ALBUTEROL SULFATE 14900867069 Active Bertrand Patel DO Active AZITHROMYCIN 250 MG ORAL TABLET take 2 po today then take 1 po days 2-5 AZITHROMYCIN 68608043431 No Longer Active Adolfo traore PA Active PERMETHRIN 5 % EXTERNAL CREAM apply neck to toes tonig ht and then rinse off in morning. repeat at 7 days PERMETHRIN 60638036228 No Longer Active Adolfo OSORIO Active AMOXICILLIN 500 MG ORAL CAPSULE 2 po BID x 10 days 201 07/15/00 AMOXICILLIN 90969440115 No Longer Active Yoli Mercado MD PhD Acti ve INSUPEN ULTRAFIN 31G X 6 MM USE DIRECTED INSULIN PEN NEEDLE 13964360237 No Longer Active Bertrand Patel DO Active TRANSDERM-SCOP (1.5 MG) 1 MG/3DAYS TRANSDERMAL PATCH 7 2 HOUR 1 patch applied behind ear q 3 day SCOPOLAMINE BASE 14841355396 No Lo nger Active Bertrand Patel DO Active MACRODANTIN 100 MG ORAL CAPSULE one p.o. b.i.d. x2 weeks NITROFURANTOIN MACROCRYSTAL 67747729962 No Longer Active Bertrand Patel DO Active MACRODANTIN 100 MG ORAL CAPSULE one p.o. b.i.d. x2 weeks MACRODANTIN 100 MG ORAL CAPSULE 2835721 NITROFURANTOIN MACROCRYSTAL Inactive TRANSDERM-SCOP (1.5 MG) 1 [...] days PERMETHRIN 5 % EXTER NAL CREAM 796709 PERMETHRIN Inactive WELLBUTRIN 75 MG ORAL TABLET 2 times daily WELLBUTRIN 75 MG ORAL TABLET BUPROPION HCL Inactive CYMBALTA 30 MG ORAL CAPSULE DELAYED RELEASE PARTICLES 1 cap by mouth daily CYMBALTA 30 MG ORAL CAPSULE DELAYED RELE ASE PARTICLES 199095 DULOXETINE HCL Inactive AZITHROMYCIN 500 MG INTRAVENOUS SOLUTION RECONSTITUTED 1 po q da y AZITHROMYCIN 500 MG INTRAVENOUS SOLUTION RECONSTITUTED 17749 838800 AZITHROMYCIN Inactive CINNAMON ALPHA LIPOIC AC CMPLX CAPSULE by mouth twice a day in AM by mouth twice a day in PM CINNAMON ALPHA LIPOIC AC CMPLX CAPSULE ALPHA LIPOIC UFRX-PC-CHUHUOBA CAPS Inactive MICARDIS HCT 80-12.5 MG ORAL TABLET 1 qd 07/30 MICARDIS HCT 80-12.5 MG ORAL TABLET 108243 TELMISARTAN-HCTZ Inactive PRAVASTATIN SODIUM 20 MG ORAL TABLET 1 tablet by mouth daily at bedtime PRAVASTATIN SODIUM 20 MG ORAL TABLET 904887 PRAVASTATIN SODIUM Inactive FUROSEMIDE 20 MG ORAL TABLET 1 pill by mouth daily if needed for edema FUROSEMIDE 20 MG ORAL TABLET 791821 FUROSEMIDE Inactive METFORMIN HCL 500 MG ORAL TABLET 1 bid METFORMIN HCL 500 MG ORAL TABLET 860397 METFORMIN HCL Inactive B-12 1000 MCG ORAL CAPSULE 1 tab daily B -12 1000 MCG ORAL CAPSULE CYANOCOBALAMIN Inactive VITAMIN E 200 UNIT ORAL CAPSULE 1 cap po qd 1 VITAMIN E 200 UNIT ORAL CAPSULE 5836244 VITAMIN E Inactive [facility] MELATONIN 5-10 MG [...] po daily AZITHROMYCIN 250 MG ORAL TABLET 289485 AZITHROMY BERNARDO Inactive SYMBICORT 160-4.5 MCG/ACT INHALATION AEROSOL 2 puffs BID 9 SYMBICORT 160-4.5 MCG/ACT INHALATION AEROSOL BUDESONIDE-FORM OTEROL FUMARATE Inactive ALBUTEROL SULFATE (2.5 MG/3ML) 0.083% INHALATION NEBUL IZATION SOLUTION one vial per nebulizer every 4-6 hours as needed ALBUTEROL SULFATE (2.5 MG/3ML) 0.083% INHALATION NEBULIZATION SOLUTION 477188 ALBUTER OL SULFATE Inactive NEBULIZER use as directed NEBULIZER NEBULI ZERS Inactive TESSALON PERLES 100 MG ORAL CAPSULE 1 tablet by mouth 3 times da juan pablo TESSALON PERLES 100 MG ORAL CAPSULE 748339 BENZONATATE Inactive CYCLOBENZAPRINE HCL 10 MG ORAL TABLET Take 1 tab TID PRN for mus triston pain CYCLOBENZAPRINE HCL 10 MG ORAL TABLET 048103 CYCLOBENZA ANUJA HCL Inactive AUGMENTIN 875-125 MG ORAL TABLET 1 po BID x 10 days 18/04/06 AUGMENTIN 875-125 MG ORAL TABLET AMOXICILLIN-POT CLAVULANATE Inactive BACTROBAN 2 % EXTERNAL CREAM Apply to affected area BID for up to 10 days BACTROBAN 2 % EXTERNAL CREAM MUPIROCIN CA LCIUM Inactive VITAMIN D3 73891 UNIT ORAL CAPSULE 1 pill Week x 4 mo nths for vitamin D deficiency/osteoporosis VITAMIN D3 17996 UNIT ORAL CAPSULE CHOLECALCIFEROL Inactive BENZONATATE 200 MG ORAL CAPSULE 1 three times a day as neede d for cough BENZONATATE 200 MG ORAL CAPSULE 029489 BENZONATA TE Inactive ZITHROMAX Z-MARTIN 250 MG ORAL TABLET 2 today and then 1 daily for 4 days ZITHROMAX Z-MARTIN 250 MG ORAL TABLET 587087 AZITHR OMYCIN Inactive ADDERALL 10 MG ORAL TABLET 1 tab twice daily 2 ADDERALL 10 MG ORAL TABLET 641721 AMPHETAMINE-DEXTROAMPHETAMINE Inactive LEVAQUIN 500 MG ORAL TABLET 1 tablet by mouth daily 21/06/28 LEVAQUIN 500 MG ORAL TABLET 714034 LEVOFLOXACIN Inactive AMOXICILLIN 500 MG ORAL CAPSULE 2 po BID x 10 days 201 07/15/00 AMOXICILLIN 500 MG ORAL CAPSULE 909789 AMOXICILLIN Inactive AZITHROMYCIN 250 MG ORAL TABLET take 2 po today then take 1 po days 2-5 AZITHROMYCIN 250 MG ORAL TABLET 407402 AZITHROMY BERNARDO Inactive LEVAQUIN 500 MG ORAL TABLET 1 pill by mouth daily 2013 LEVAQUIN 500 MG ORAL TABLET 054996 LEVOFLOXACIN Inactive AUGMENTIN 875-125 MG ORAL TABLET [...] days 08/02 PREDNISONE 20 MG ORAL TABLET 935351 PREDNISONE Inactive CIPRO 500 MG ORAL TABLET 1 tablet by mouth twice daily CIPRO 500 MG ORAL TABLET 865107 CIPROFLOXACIN HCL Inactive DOXYCYCLINE HYCLATE 100 MG ORAL CAPSULE 1 cap by mouth twice jong ly DOXYCYCLINE HYCLATE 100 MG ORAL CAPSULE 8679037 DOXYCYCL INE HYCLATE Inactive PREDNISONE 20 MG [...] negative Strep Screen Lot Number (CLIA Waived) [id number] Strep Screen Exp Date (CLIA Waived) 05/02/2020 Encounters Code Encounter Date Provider Facility CPT-76777 [id number] Vst-Est Level III 16:58:04 CDT Ky nae Arell [facility]-60100 [id number] Vst-Est Level IV 14:46:36 TANNERY WORKER Foster Patel [facility]-74037 Level 3 Est. Patient 12:37:30 TANNERY WORKER Galilea Se [facility]-30227 Level 3 Est. Patient 11:40:23 CDT Bertrand marquez [facility] CPT-63955 Level 4 Est. Patient 15:33:35 TANNERY WORKER Bertrand marquez [facility]-36942 Level 4 Est. Patient 12:31:54 CDT Bertrand marquez [facility]-65758 Level 3 Est. Patient 11:27:00 TANNERY WORKER Ike Deluna MD [facility]-28333 Level 3 Est. Patient 08:50:57 TANNERY WORKER Silvia Are [facility]-17738 Level 3 Est. Patient 10:04:13 CDT Bertrand marquez [facility]-54755 Level 4 Est. Patient 16:02:10 TANNERY WORKER Silvia Are [facility]-76450 Level 3 Est. Patient 13:04:54 TANNERY WORKER Silvia Are [facility]-26568 Level 3 Est. Patient 12:56:37 CDT Bertrand marquez [facility] CPT-77551 Level 3 Est. Patient 19:12:03 CDT Yoli tolbert MD [facility]-87097 Level 3 Est. Patient 14:36:01 CDT Yoli tolbert MD [facility]-48818 Level 2 Est. Patient 08:00:22 CDT Jcarlos dc MD [facility]-99545 Level 3 Est. Patient 19:06:55 CDT Bertrand marquez [facility]-01571 Level 3 Est. Patient 10:08:23 TANNERY WORKER Bertrand marquez [facility] CPT-83019 Level 3 Est. Patient 16:37:54 TANNERY WORKER Bertrand marquez [facility] CPT-14502 Level 3 Est. Patient 11:31:59 TANNERY WORKER Bertrand marquez [facility] CPT-80037 Level 3 Est. Patient 10:20:08 CDT Adolfo villasenor [facility] CPT-91905 Level 3 Est. Patient 13:45:20 CDT Sanket Josekelvin buckley [facility] CPT-14455 Level 3 Est. Patient 12:51:06 CDT Adolfo villasenor [facility] CPT-63617 Level 3 Est. Patient 11:22:51 TANNERY WORKER Yoli tolbert MD PhD [facility] CPT-04668 Level 3 Est. Patient 13:33:19 CDT Bertrand marqeuz [facility] Procedures Code Procedure Name Date Entry Date Standard Desc ription CPT-14116 Wound Culture - LAB USE ONLY 15:45:25 CDT 2 CPT-92379 Venipuncture Draw Fee 10:23:01 CDT CPT-J0696 Rocephin 1000 mg (Ceftriaxone) 16:20:30 TANNERY WORKER CPT-58969 Abx/Therapy Injection 16:20:29 TANNERY WORKER CPT-J0696 Rocephin 1gm Inj Solr 15:51:59 TANNERY WORKER CPT-77861 Chest 2V Frontal and Lat 15:20:28 TANNERY WORKER 07/22 CPT-69241 Breathing Tx 14:51:55 TANNERY WORKER CPT-09254 Breathing Tx 09:57:16 TANNERY WORKER CPT-29406 Knee comp 4/> V 11:58:06 TANNERY WORKER
--- OUTSIDE RECORDS SUMMARY | 2019-11-13 09:50 | XMS REPORT | Clinical Summary ---
Author Author Admin, Enrique Adamson Organization [employer] Address Unknown Phone Unavailable Allergies, Adverse Reactions, [...] 09/09/28 EDEMA LEG ICD-782.3 Inactive Adele Feldman HERB DOCTOR 201 01/01/02 SHORTNESS OF BREATH ICD-786.05 Inactive Yoli Mercado MD PhD RIB PAIN, RIGHT SIDED ICD-786.50 Inactive Yoli Mercado MD PhD KNEE PAIN, RIGHT ICD-719.46 Inactive Adele Alexusu ghn HERB DOCTOR Knee pain, left ICD-719.46 Inactive Adele Alexusug hn HERB DOCTOR Pharyngitis-Acute ICD-462 Inactive Bertrand Redmond DO Polyuria ICD-788.42 Inactive Yoli Mercado MD P Cellulitis, leg, right ICD-682.6 Inactive Yuki Deluna MD Foreign body, ear ICD-931 Inactive Yoli salazar MD PhD Fatigue ICD-780.79 Inactive Ike Deluna MD 201 12/01/06 Headache ICD-784.0 Inactive Adele Feldman HERB DOCTOR 2017 Cough ICD-786.2 Inactive Adele Feldman HERB DOCTOR 06/04 SINUSITIS, ACUTE ICD-461.9 Inactive Ike lange MD Fatigue ICD-780.79 Inactive Adele Feldman HERB DOCTOR 2017 Bronchitis acute with bronchospasm ICD-466.0 I nactive Bertrand Patel DO Animal bite ICD-919.8 Inactive Adele Feldman LP N Mycoplasma infection ICD-041.81 Inactive Anit a Feldman HERB DOCTOR Amenorrhea, secondary ICD-626.0 Inactive Clotilde alcantara Gaston HUNGN Left maxillary sinusitis ICD-473.0 Inactive Bertrand Patel DO Medication List Medication Instructions Start Date Stop Date Generic Name ND Status Provider Patient Instruction SUDAFED 12 HOUR 120 MG ORAL TABLET EXTENDED RELEASE 12 HOUR 1 pill twice daily if for congestion PSEUDOEPHEDRINE HCL 45528289356 Active Silvia Arekalin TOVARN Active CHERATUSSIN AC 100-10 MG/5ML ORAL SYRUP 5ml po q6hr PRN Cough 20 21/03/15 GUAIFENESIN-CODEINE 33055707343 Active Silvia Arell GROOMING ASSISTANT Active FLUTICASONE PROPIONATE 50 MCG/ACT NASAL SUSPENSION 2 s prays per nostril daily for 2 weeks, then 1 spray each nostril PRN FLUTI CASONE PROPIONATE 81528576055 Active Silvia Faisalkalin TOVARN Active MODAFINIL 200 MG TABS TAKE 1/2 TABLET BY MOUTH IN THE MORNING AND 1/2 TABLET BY MOUTH AT NOON MODAFINIL 68083148035 Active Adele Gaston HUNGN Active HYDROCODONE-ACETAMINOPHEN 7.5-325 MG TABS TAKE 1 TABLE T BY MOUTH EVERY SIX HOURS NEEDED FOR PAIN HYDROCODONE-ACETAMINOPHEN 50907517628 A ctive Adele Feldman HERB DOCTOR Active ALPRAZOLAM 0.5 MG TABS TAKE 1 TABLET THREE TIMES DAILY ALPRAZOLAM 31591274819 Active Adele Feldman LPN Active EVENING PRIMROSE OIL 1000 MG ORAL CAPSULE 1 capsule once daily EVENING PRIMROSE OIL 52709923807 Active Bertrand Patel DO Active LEVAQUIN 500 MG ORAL TABLET 1 tablet by mouth daily 20 21/06/28 LEVOFLOXACIN 52868851232 No Longer Active Bertrand Patel DO Active PREDNISONE 20 MG ORAL TABLET Take 3 tabs for 3 days, t hen 2 tabs for 3 days, then 1 tab for 3 days PREDNISONE 97852345759 No Rainer fatou Active Galilea Sell GROOMING ASSISTANT Active DOXYCYCLINE HYCLATE 100 MG ORAL CAPSULE 1 cap by mouth twice jong ly DOXYCYCLINE HYCLATE 39849157056 No Longer Active Galilea Sell GROOMING ASSISTANT Active ADDERALL 10 MG ORAL TABLET 1 tab twice daily 2 AMPHETAMINE-DEXTROAMPHETAMINE 60741366381 No Longer Active Nitza Phi llips Scribe Active ZITHROMAX Z-MARTIN 250 MG ORAL TABLET 2 today and then 1 daily for 4 days AZITHROMYCIN 06453786133 No Longer Active Nitza Osman lips Scribe Active BENZONATATE 200 MG ORAL CAPSULE 1 three times a day as neede d for cough BENZONATATE 22849663864 No Longer Active Nitza Osman lips Scribe Active VITAMIN D3 97228 UNIT ORAL CAPSULE 1 pill Week x 4 mo nths for vitamin D deficiency/osteoporosis CHOLECALCIFEROL 37260603883 N o Longer Active Layla Garcia Active BACTROBAN 2 % EXTERNAL CREAM Apply to affected area BID for up to 10 days MUPIROCIN CALCIUM 54408422557 No Longer Active Ike Deluna MD Active CIPRO 500 MG ORAL TABLET 1 tablet by mouth twice daily CIPROFLOXACIN HCL 27431537670 No Longer Active Adriana Bender LPN Active AUGMENTIN 875-125 MG ORAL TABLET 1 po BID x 10 days 18/04/06 AMOXICILLIN-POT CLAVULANATE 07396727773 No Longer Active Adriana Bender LPN Active CYCLOBENZAPRINE HCL 10 MG ORAL TABLET Take 1 tab TID PRN for mus triston pain CYCLOBENZAPRINE HCL 96424754690 No Longer Active Bertrand Patel DO Active TESSALON PERLES 100 MG ORAL CAPSULE 1 tablet by mouth 3 times da juan pablo BENZONATATE 42606776704 No Longer Active Bertrand Patel DO Ac tive NEBULIZER use as directed NEBULIZERS 99189202539 No Longer Active Bertrand Patel DO Active ALBUTEROL SULFATE (2.5 MG/3ML) 0.083% INHALATION NEBUL IZATION SOLUTION one vial per nebulizer every 4-6 hours as needed ALBUTERO L SULFATE 60550807894 No Longer Active Bertrand Patel DO Active SYMBICORT 160-4.5 MCG/ACT INHALATION AEROSOL 2 puffs BID 9 BUDESONIDE-FORMOTEROL FUMARATE 83699891530 No Longer Active Bertrand Patel DO Active PREDNISONE 20 MG ORAL TABLET take 3 tabs daily for 3 d ays, 2 tabs daily for 3 days, 1 tab daily for 3 days, 1/2 tab daily for 3 days 08/02 PREDNISONE 45622204947 No Longer Active Silvia Vazquez GROOMING ASSISTANT Active AZITHROMYCIN 250 MG ORAL TABLET Take 2 tabs po today then 1 tab po daily AZITHROMYCIN 13057008147 No Longer Active Silvia Arell GROOMING ASSISTANT Active AUGMENTIN 875-125 MG ORAL TABLET 1 po BID x 10 days 20 19/07/13 AMOXICILLIN-POT CLAVULANATE 89991500094 No Longer Active Adriana Bender LPN Active CHEWABLE CALCIUM 500-200-40 MG-UNT-MCG ORAL TABLET CHEWABLE 1 chew tab bid CALCIUM-VITAMIN D-VITAMIN K 78269725677 Active Silvia Are ll GROOMING ASSISTANT Active EQ COMPLETE MULTIVIT ADULT 50+ ORAL TABLET 1 tab po bid MULTIPLE VITAMINS-MINERALS 15761322991 Active Silvia Arell GROOMING ASSISTANT Active LORTAB 7.5-500 MG ORAL TABLET take one po Q6 hours 201 09/12/01 HYDROCODONE-ACETAMINOPHEN 31268881863 No Longer Active Nirmal Robbins RN Active [facility] MELATONIN 5-10 MG ORAL TABLET EXTENDED RELEASE Jair e one by mouth daily at bedtime MELATONIN-PYRIDOXINE 12203114677 No Longer Acti ve Bertrand Patel DO Active VITAMIN E 200 UNIT ORAL CAPSULE 1 cap po qd VITAM IN E 85552719698 No Longer Active Bertrand Patel DO Active B-12 1000 MCG ORAL CAPSULE 1 tab daily CYANOCOB ALAMIN 80230332628 No Longer Active Bertrand Patel DO Active METFORMIN HCL 500 MG ORAL TABLET 1 bid METFOR MIN HCL 51036978978 No Longer Active Bertrand W Jorge DO Active FUROSEMIDE 20 MG ORAL TABLET 1 pill by mouth daily if needed for edema FUROSEMIDE 64492630740 No Longer Active Bertrand Patel DO Active PRAVASTATIN SODIUM 20 MG ORAL TABLET 1 tablet by mouth daily at bedtime PRAVASTATIN SODIUM 67945332671 No Longer Active Bertrand Patel DO Active AUGMENTIN 875-125 MG ORAL TABLET 1 pill by mouth twice daily 201 09/10/00 AMOXICILLIN-POT CLAVULANATE 89819891230 No Longer Active Yoli Mercado MD PhD Active LEVAQUIN 500 MG ORAL TABLET 1 pill by mouth daily 2013 LEVOFLOXACIN 09564733382 No Longer Active Yoli Mercado MD PhD Acti ve AMLODIPINE BESYLATE 5 MG ORAL TABLET 1 tablet by mouth daily for blood pressure AMLODIPINE BESYLATE 29940528835 Active Bertrand Patel DO Active MICARDIS 80 MG ORAL TABLET 1 tablet daily for blood pressure 07/30 TELMISARTAN 75770789210 Active Bertrand Patel DO Active MICARDIS HCT 80-12.5 MG ORAL TABLET 1 qd TELMISARTAN-HCTZ 73284627196 No Longer Active Bertrand Patel DO Active CINNAMON ALPHA LIPOIC AC CMPLX CAPSULE by mouth twice a day in AM by mouth twice a day in PM ALPHA LIPOIC [id number] CA PS 80146116522 No Longer Active Bertrand Patel DO Active AZITHROMYCIN 500 MG INTRAVENOUS SOLUTION RECONSTITUTED 1 po q da y AZITHROMYCIN 87154980118 No Longer Active Bertrand Patel DO A ctive CYMBALTA 30 MG ORAL CAPSULE DELAYED RELEASE PARTICLES 1 cap by mouth daily DULOXETINE HCL 27834836019 No Longer Active Bertrand marquez DO Active CYMBALTA 60 MG ORAL CAPSULE DELAYED RELEASE PARTICLES 1 cap by mouth daily DULOXETINE HCL 19314838096 Active Bertrand Patel DO Active WELLBUTRIN 75 MG ORAL TABLET 2 times daily BUPR OPION HCL 24496995960 No Longer Active Bertrand Patel DO Active PROAIR HFA 108 (90 Base) MCG/ACT INHALATION AEROSOL SO LUTION take one to two puffs po Q4-6 hour prn cough and shortness of breath ALBUTEROL SULFATE 83833270461 Active Bertrand Patel DO Active AZITHROMYCIN 250 MG ORAL TABLET take 2 po today then take 1 po days 2-5 AZITHROMYCIN 70431056737 No Longer Active Adolfo traore PA Active PERMETHRIN 5 % EXTERNAL CREAM apply neck to toes tonig ht and then rinse off in morning. repeat at 7 days PERMETHRIN 17295682841 No Longer Active Adolfo OSORIO Active AMOXICILLIN 500 MG ORAL CAPSULE 2 po BID x 10 days 201 07/15/00 AMOXICILLIN 74326829527 No Longer Active Yoli Mercado MD PhD Acti ve INSUPEN ULTRAFIN 31G X 6 MM USE DIRECTED INSULIN PEN NEEDLE 38224216628 No Longer Active Bertrand Patel DO Active TRANSDERM-SCOP (1.5 MG) 1 MG/3DAYS TRANSDERMAL PATCH 7 2 HOUR 1 patch applied behind ear q 3 day SCOPOLAMINE BASE 41828576120 No Lo nger Active Bertrand Patel DO Active MACRODANTIN 100 MG ORAL CAPSULE one p.o. b.i.d. x2 weeks NITROFURANTOIN MACROCRYSTAL 40496446044 No Longer Active Bertrand Patel DO Active MACRODANTIN 100 MG ORAL CAPSULE one p.o. b.i.d. x2 weeks MACRODANTIN 100 MG ORAL CAPSULE 9303631 NITROFURANTOIN MACROCRYSTAL Inactive TRANSDERM-SCOP (1.5 MG) 1 [...] days PERMETHRIN 5 % EXTER NAL CREAM 527185 PERMETHRIN Inactive WELLBUTRIN 75 MG ORAL TABLET 2 times daily WELLBUTRIN 75 MG ORAL TABLET BUPROPION HCL Inactive CYMBALTA 30 MG ORAL CAPSULE DELAYED RELEASE PARTICLES 1 cap by mouth daily CYMBALTA 30 MG ORAL CAPSULE DELAYED RELE ASE PARTICLES 006322 DULOXETINE HCL Inactive AZITHROMYCIN 500 MG INTRAVENOUS SOLUTION RECONSTITUTED 1 po q da y AZITHROMYCIN 500 MG INTRAVENOUS SOLUTION RECONSTITUTED 16117 530504 AZITHROMYCIN Inactive CINNAMON ALPHA LIPOIC AC CMPLX CAPSULE by mouth twice a day in AM by mouth twice a day in PM CINNAMON ALPHA LIPOIC AC CMPLX CAPSULE ALPHA LIPOIC [id number] CAPS Inactive MICARDIS HCT 80-12.5 MG ORAL TABLET 1 qd 07/30 MICARDIS HCT 80-12.5 MG ORAL TABLET 370922 TELMISARTAN-HCTZ Inactive PRAVASTATIN SODIUM 20 MG ORAL TABLET 1 tablet by mouth daily at bedtime PRAVASTATIN SODIUM 20 MG ORAL TABLET 090015 PRAVASTATIN SODIUM Inactive FUROSEMIDE 20 MG ORAL TABLET 1 pill by mouth daily if needed for edema FUROSEMIDE 20 MG ORAL TABLET 849710 FUROSEMIDE Inactive METFORMIN HCL 500 MG ORAL TABLET 1 bid METFORMIN HCL 500 MG ORAL TABLET 683872 METFORMIN HCL Inactive B-12 1000 MCG ORAL CAPSULE 1 tab daily B -12 1000 MCG ORAL CAPSULE CYANOCOBALAMIN Inactive VITAMIN E 200 UNIT ORAL CAPSULE 1 cap po qd 1 VITAMIN E 200 UNIT ORAL CAPSULE 7364163 VITAMIN E Inactive [facility] MELATONIN 5-10 MG [...] po daily AZITHROMYCIN 250 MG ORAL TABLET 881774 AZITHROMY BERNARDO Inactive SYMBICORT 160-4.5 MCG/ACT INHALATION AEROSOL 2 puffs BID 9 SYMBICORT 160-4.5 MCG/ACT INHALATION AEROSOL BUDESONIDE-FORM OTEROL FUMARATE Inactive ALBUTEROL SULFATE (2.5 MG/3ML) 0.083% INHALATION NEBUL IZATION SOLUTION one vial per nebulizer every 4-6 hours as needed ALBUTEROL SULFATE (2.5 MG/3ML) 0.083% INHALATION NEBULIZATION SOLUTION 961983 ALBUTER OL SULFATE Inactive NEBULIZER use as directed NEBULIZER NEBULI ZERS Inactive TESSALON PERLES 100 MG ORAL CAPSULE 1 tablet by mouth 3 times da juan pablo TESSALON PERLES 100 MG ORAL CAPSULE 009636 BENZONATATE Inactive CYCLOBENZAPRINE HCL 10 MG ORAL TABLET Take 1 tab TID PRN for mus triston pain CYCLOBENZAPRINE HCL 10 MG ORAL TABLET 007638 CYCLOBENZA ANUJA HCL Inactive AUGMENTIN 875-125 MG ORAL TABLET 1 po BID x 10 days 18/04/06 AUGMENTIN 875-125 MG ORAL TABLET AMOXICILLIN-POT CLAVULANATE Inactive BACTROBAN 2 % EXTERNAL CREAM Apply to affected area BID for up to 10 days BACTROBAN 2 % EXTERNAL CREAM MUPIROCIN CA LCIUM Inactive VITAMIN D3 79432 UNIT ORAL CAPSULE 1 pill Week x 4 mo nths for vitamin D deficiency/osteoporosis VITAMIN D3 14425 UNIT ORAL CAPSULE CHOLECALCIFEROL Inactive BENZONATATE 200 MG ORAL CAPSULE 1 three times a day as neede d for cough BENZONATATE 200 MG ORAL CAPSULE 937089 BENZONATA TE Inactive ZITHROMAX Z-MARTIN 250 MG ORAL TABLET 2 today and then 1 daily for 4 days ZITHROMAX Z-MARTIN 250 MG ORAL TABLET 476397 AZITHR OMYCIN Inactive ADDERALL 10 MG ORAL TABLET 1 tab twice daily 2 ADDERALL 10 MG ORAL TABLET 773264 AMPHETAMINE-DEXTROAMPHETAMINE Inactive LEVAQUIN 500 MG ORAL TABLET 1 tablet by mouth daily 21/06/28 LEVAQUIN 500 MG ORAL TABLET 149794 LEVOFLOXACIN Inactive AMOXICILLIN 500 MG ORAL CAPSULE 2 po BID x 10 days 201 07/15/00 AMOXICILLIN 500 MG ORAL CAPSULE 391735 AMOXICILLIN Inactive AZITHROMYCIN 250 MG ORAL TABLET take 2 po today then take 1 po days 2-5 AZITHROMYCIN 250 MG ORAL TABLET 047425 AZITHROMY BERNARDO Inactive LEVAQUIN 500 MG ORAL TABLET 1 pill by mouth daily 2013 LEVAQUIN 500 MG ORAL TABLET 803806 LEVOFLOXACIN Inactive AUGMENTIN 875-125 MG ORAL TABLET [...] days 08/02 PREDNISONE 20 MG ORAL TABLET 189529 PREDNISONE Inactive CIPRO 500 MG ORAL TABLET 1 tablet by mouth twice daily CIPRO 500 MG ORAL TABLET 031680 CIPROFLOXACIN HCL Inactive DOXYCYCLINE HYCLATE 100 MG ORAL CAPSULE 1 cap by mouth twice jong ly DOXYCYCLINE HYCLATE 100 MG ORAL CAPSULE 7981683 DOXYCYCL INE HYCLATE Inactive PREDNISONE 20 MG [...] negative Strep Screen Lot Number (CLIA Waived) [id number] Strep Screen Exp Date (CLIA Waived) 05/02/2020 Encounters Code Encounter Date Provider Facility CPT-65488 [id number] Vst-Est Level III 16:58:04 CDT Co nae Arell [facility]-33517 [id number] Vst-Est Level IV 14:46:36 CHAUFFEUR Foster Patel [facility]-52991 Level 3 Est. Patient 12:37:30 CHAUFFEUR Galilea Se [facility]-05591 Level 3 Est. Patient 11:40:23 CDT Bertrand marquez [facility] CPT-64773 Level 4 Est. Patient 15:33:35 CHAUFFEUR Bertrand marquez [facility]-84149 Level 4 Est. Patient 12:31:54 CDT Bertrand marquez [facility]-10457 Level 3 Est. Patient 11:27:00 CHAUFFEUR Ike Deluna MD [facility]-55255 Level 3 Est. Patient 08:50:57 CHAUFFEUR Silvia Are [facility]-34465 Level 3 Est. Patient 10:04:13 CDT Bertrand marquez [facility]-73702 Level 4 Est. Patient 16:02:10 CHAUFFEUR Silvia Are [facility]-01078 Level 3 Est. Patient 13:04:54 CHAUFFEUR Silvia Are [facility]-24509 Level 3 Est. Patient 12:56:37 CDT Bertrand marquez [facility] CPT-44013 Level 3 Est. Patient 19:12:03 CDT Yoli tolbert MD [facility]-06303 Level 3 Est. Patient 14:36:01 CDT Yoli tolbert MD [facility]-02944 Level 2 Est. Patient 08:00:22 CDT Jcarlos dc MD [facility]-68161 Level 3 Est. Patient 19:06:55 CDT Bertrand marquez [facility]-29229 Level 3 Est. Patient 10:08:23 CHAUFFEUR Bertrand marquez [facility] CPT-71052 Level 3 Est. Patient 16:37:54 CHAUFFEUR eBrtrand marquez [facility] CPT-63443 Level 3 Est. Patient 11:31:59 CHAUFFEUR Bertrand marquez [facility] CPT-69075 Level 3 Est. Patient 10:20:08 CDT Adolfo villasenor [facility] CPT-74274 Level 3 Est. Patient 13:45:20 CDT Sanket Josekelvin buckley [facility] CPT-47675 Level 3 Est. Patient 12:51:06 CDT Adolfo villasenor [facility] CPT-80769 Level 3 Est. Patient 11:22:51 CHAUFFEUR Yoli tolbert MD PhD [facility] CPT-49345 Level 3 Est. Patient 13:33:19 CDT Bertrand marquez [facility] Procedures Code Procedure Name Date Entry Date Standard Desc ription CPT-45964 Wound Culture - LAB USE ONLY 15:45:25 CDT 2 CPT-45421 Venipuncture Draw Fee 10:23:01 CDT CPT-J0696 Rocephin 1000 mg (Ceftriaxone) 16:20:30 CHAUFFEUR CPT-06828 Abx/Therapy Injection 16:20:29 CHAUFFEUR CPT-J0696 Rocephin 1gm Inj Solr 15:51:59 CHAUFFEUR CPT-56634 Chest 2V Frontal and Lat 15:20:28 CHAUFFEUR 07/22 CPT-88738 Breathing Tx 14:51:55 CHAUFFEUR CPT-32705 Breathing Tx 09:57:16 CHAUFFEUR CPT-58773 Knee comp 4/> V 11:58:06 CHAUFFEUR
--- OUTSIDE RECORDS SUMMARY | 2019-11-13 09:50 | XMS REPORT | Clinical Summary ---
Author Author Admin, Enrique Adamson Organization [employer] Address Unknown Phone Unavailable Allergies, Adverse Reactions, [...] PAIN, RIGHT ICD-719.46 Inactive Adele Alexusu ghn INTERNATIONAL SPECIALIST Knee pain, left ICD-719.46 Inactive Adele Adina hn INTERNATIONAL SPECIALIST Pharyngitis-Acute ICD-462 Inactive Bertrand Redmond DO Polyuria ICD-788.42 Inactive Yoli Mercado MD P hD FH DIABETES ICD-V18.0 Inactive Yoli Mercado MD PhD 20 14/02/29 Foreign body, ear ICD-931 Inactive Yoli salazar MD PhD Headache ICD-784.0 Inactive Adele Feldman INTERNATIONAL SPECIALIST 2017 Cough ICD-786.2 Inactive Adele Feldman INTERNATIONAL SPECIALIST 06/04 SINUSITIS, ACUTE ICD-461.9 Inactive Ike lange MD Fatigue ICD-780.79 Inactive Daele Feldman INTERNATIONAL SPECIALIST 2017 Cellulitis, leg, right ICD-682.6 Inactive Yuki Deluna MD Animal bite ICD-919.8 Inactive Adele Feldman LP N Mycoplasma infection ICD-041.81 Inactive Anit a Feldman INTERNATIONAL SPECIALIST Amenorrhea, secondary ICD-626.0 Inactive Ani ta Feldman INTERNATIONAL SPECIALIST Fatigue ICD-780.79 Inactive Ike Deluna MD 201 12/01/06 Bronchitis acute with bronchospasm ICD-466.0 I nactive Bertrand Patel DO Left maxillary sinusitis ICD-473.0 Inactive Bertrand Patel DO Medication List Medication Instructions Start Date Stop Date Generic Name ND Status Provider Patient Instruction SUDAFED 12 HOUR 120 MG ORAL TABLET EXTENDED RELEASE 12 HOUR 1 pill twice daily if for congestion PSEUDOEPHEDRINE HCL 36166985682 Active Silvia Arell SENIOR GAME ADVISOR Active CHERATUSSIN AC 100-10 MG/5ML ORAL SYRUP 5ml po q6hr PRN Cough 20 21/03/15 GUAIFENESIN-CODEINE 13478760094 Active Silvia Arell SENIOR GAME ADVISOR Active FLUTICASONE PROPIONATE 50 MCG/ACT NASAL SUSPENSION 2 s prays per nostril daily for 2 weeks, then 1 spray each nostril PRN FLUTI CASONE PROPIONATE 01851539560 Active Silvia Arell SENIOR GAME ADVISOR Active MODAFINIL 200 MG TABS TAKE 1/2 TABLET BY MOUTH IN THE MORNING AND 1/2 TABLET BY MOUTH AT NOON MODAFINIL 32104009030 Active Adele Feldman INTERNATIONAL SPECIALIST Active HYDROCODONE-ACETAMINOPHEN 7.5-325 MG TABS TAKE 1 TABLE T BY MOUTH EVERY SIX HOURS NEEDED FOR PAIN HYDROCODONE-ACETAMINOPHEN 65219314361 A ctive Adele Feldman INTERNATIONAL SPECIALIST Active ALPRAZOLAM 0.5 MG TABS TAKE 1 TABLET THREE TIMES DAILY ALPRAZOLAM 44978179348 Active Adele Feldmansol HUNGN Active EVENING PRIMROSE OIL 1000 MG ORAL CAPSULE 1 capsule once daily EVENING PRIMROSE OIL 19577522509 Active Bertrand Patel DO Active LEVAQUIN 500 MG ORAL TABLET 1 tablet by mouth daily 20 21/06/28 LEVOFLOXACIN 07585735363 No Longer Active Bertrand Patel DO Active PREDNISONE 20 MG ORAL TABLET Take 3 tabs for 3 days, t hen 2 tabs for 3 days, then 1 tab for 3 days PREDNISONE 98171255936 No Rainer fatou Active Galilea Sell SENIOR GAME ADVISOR Active DOXYCYCLINE HYCLATE 100 MG ORAL CAPSULE 1 cap by mouth twice jong ly DOXYCYCLINE HYCLATE 17871181479 No Longer Active Galilea Sell SENIOR GAME ADVISOR Active ADDERALL 10 MG ORAL TABLET 1 tab twice daily 2 AMPHETAMINE-DEXTROAMPHETAMINE 29036106548 No Longer Active Nitza Phi llips Scribe Active ZITHROMAX Z-MARTIN 250 MG ORAL TABLET 2 today and then 1 daily for 4 days AZITHROMYCIN 52431192351 No Longer Active Nitza Osman lips Scribe Active BENZONATATE 200 MG ORAL CAPSULE 1 three times a day as neede d for cough BENZONATATE 37787810300 No Longer Active Nitza Osman lips Scribe Active VITAMIN D3 46711 UNIT ORAL CAPSULE 1 pill Week x 4 mo nths for vitamin D deficiency/osteoporosis CHOLECALCIFEROL 94776953209 N o Longer Active Layla Garcia Active BACTROBAN 2 % EXTERNAL CREAM Apply to affected area BID for up to 10 days MUPIROCIN CALCIUM 74583104877 No Longer Active Ike Deluna MD Active CIPRO 500 MG ORAL TABLET 1 tablet by mouth twice daily CIPROFLOXACIN HCL 14663362009 No Longer Active Adriana Bender LPN Active AUGMENTIN 875-125 MG ORAL TABLET 1 po BID x 10 days 18/04/06 AMOXICILLIN-POT CLAVULANATE 01939249010 No Longer Active Adriana Bender LPN Active CYCLOBENZAPRINE HCL 10 MG ORAL TABLET Take 1 tab TID PRN for mus triston pain CYCLOBENZAPRINE HCL 92060284040 No Longer Active Bertrand Patel DO Active TESSALON PERLES 100 MG ORAL CAPSULE 1 tablet by mouth 3 times da juan pablo BENZONATATE 07324024575 No Longer Active Bertrand Patel DO Ac tive NEBULIZER use as directed NEBULIZERS 95114911885 No Longer Active Bertrand Patel DO Active ALBUTEROL SULFATE (2.5 MG/3ML) 0.083% INHALATION NEBUL IZATION SOLUTION one vial per nebulizer every 4-6 hours as needed ALBUTERO L SULFATE 77375672621 No Longer Active Bertrand Patel DO Active SYMBICORT 160-4.5 MCG/ACT INHALATION AEROSOL 2 puffs BID 9 BUDESONIDE-FORMOTEROL FUMARATE 93819967354 No Longer Active Bertrand Patel DO Active PREDNISONE 20 MG ORAL TABLET take 3 tabs daily for 3 d ays, 2 tabs daily for 3 days, 1 tab daily for 3 days, 1/2 tab daily for 3 days 08/02 PREDNISONE 12307664479 No Longer Active Silvia Vazquez SENIOR GAME ADVISOR Active AZITHROMYCIN 250 MG ORAL TABLET Take 2 tabs po today then 1 tab po daily AZITHROMYCIN 16163452470 No Longer Active Silvia Arell SENIOR GAME ADVISOR Active AUGMENTIN 875-125 MG ORAL TABLET 1 po BID x 10 days 20 19/07/13 AMOXICILLIN-POT CLAVULANATE 79957527427 No Longer Active Adriana Bender LPN Active CHEWABLE CALCIUM 500-200-40 MG-UNT-MCG ORAL TABLET CHEWABLE 1 chew tab bid CALCIUM-VITAMIN D-VITAMIN K 84400533129 Active Silvia Are ll SENIOR GAME ADVISOR Active EQ COMPLETE MULTIVIT ADULT 50+ ORAL TABLET 1 tab po bid MULTIPLE VITAMINS-MINERALS 91075393634 Active Silvia Arell SENIOR GAME ADVISOR Active LORTAB 7.5-500 MG ORAL TABLET take one po Q6 hours 201 09/12/01 HYDROCODONE-ACETAMINOPHEN 72635600142 No Longer Active Nirmal Robbins RN Active [facility] MELATONIN 5-10 MG ORAL TABLET EXTENDED RELEASE Jair e one by mouth daily at bedtime MELATONIN-PYRIDOXINE 02779027192 No Longer Acti ve Bertrand Patel DO Active VITAMIN E 200 UNIT ORAL CAPSULE 1 cap po qd VITAM IN E 70195241170 No Longer Active Bertrand Patel DO Active B-12 1000 MCG ORAL CAPSULE 1 tab daily CYANOCOB ALAMIN 27372520057 No Longer Active Bertrand Patel DO Active METFORMIN HCL 500 MG ORAL TABLET 1 bid METFOR MIN HCL 54623418433 No Longer Active Bertrand W Jorge DO Active FUROSEMIDE 20 MG ORAL TABLET 1 pill by mouth daily if needed for edema FUROSEMIDE 64525388029 No Longer Active Bertrand Patel DO Active PRAVASTATIN SODIUM 20 MG ORAL TABLET 1 tablet by mouth daily at bedtime PRAVASTATIN SODIUM 21357693879 No Longer Active Bertrand Patel DO Active AUGMENTIN 875-125 MG ORAL TABLET 1 pill by mouth twice daily 201 09/10/00 AMOXICILLIN-POT CLAVULANATE 63051814597 No Longer Active Yoli Mercado MD PhD Active LEVAQUIN 500 MG ORAL TABLET 1 pill by mouth daily 2013 LEVOFLOXACIN 26516728822 No Longer Active Yoli Mercado MD PhD Acti ve AMLODIPINE BESYLATE 5 MG ORAL TABLET 1 tablet by mouth daily for blood pressure AMLODIPINE BESYLATE 86474059987 Active Bertrand Patel DO Active MICARDIS 80 MG ORAL TABLET 1 tablet daily for blood pressure 07/30 TELMISARTAN 74608810826 Active Bertrand Patel DO Active MICARDIS HCT 80-12.5 MG ORAL TABLET 1 qd TELMISARTAN-HCTZ 62382734087 No Longer Active Bertrand Patel DO Active CINNAMON ALPHA LIPOIC AC CMPLX CAPSULE by mouth twice a day in AM by mouth twice a day in PM ALPHA LIPOIC STEH-AS-CKJOJVSZ CA PS 21945551973 No Longer Active Bertrand Patel DO Active AZITHROMYCIN 500 MG INTRAVENOUS SOLUTION RECONSTITUTED 1 po q da y AZITHROMYCIN 42318377793 No Longer Active Bertrand Patel DO A ctive CYMBALTA 30 MG ORAL CAPSULE DELAYED RELEASE PARTICLES 1 cap by mouth daily DULOXETINE HCL 57704490792 No Longer Active Bertrand marquez DO Active CYMBALTA 60 MG ORAL CAPSULE DELAYED RELEASE PARTICLES 1 cap by mouth daily DULOXETINE HCL 90060878314 Active Bertrand Patel DO Active WELLBUTRIN 75 MG ORAL TABLET 2 times daily BUPR OPION HCL 88636022584 No Longer Active Bertrand Patel DO Active PROAIR HFA 108 (90 Base) MCG/ACT INHALATION AEROSOL SO LUTION take one to two puffs po Q4-6 hour prn cough and shortness of breath ALBUTEROL SULFATE 12967730612 Active Bertrand Patel DO Active AZITHROMYCIN 250 MG ORAL TABLET take 2 po today then take 1 po days 2-5 AZITHROMYCIN 94858180577 No Longer Active Adolfo traore PA Active PERMETHRIN 5 % EXTERNAL CREAM apply neck to toes tonig ht and then rinse off in morning. repeat at 7 days PERMETHRIN 87117351860 No Longer Active Adolfo OSORIO Active AMOXICILLIN 500 MG ORAL CAPSULE 2 po BID x 10 days 201 07/15/00 AMOXICILLIN 26976068279 No Longer Active Yoli Mercado MD PhD Acti ve INSUPEN ULTRAFIN 31G X 6 MM USE DIRECTED INSULIN PEN NEEDLE 84293713452 No Longer Active Bertrand Patel DO Active TRANSDERM-SCOP (1.5 MG) 1 MG/3DAYS TRANSDERMAL PATCH 7 2 HOUR 1 patch applied behind ear q 3 day SCOPOLAMINE BASE 06658221502 No Lo nger Active Bertrand Patel DO Active MACRODANTIN 100 MG ORAL CAPSULE one p.o. b.i.d. x2 weeks NITROFURANTOIN MACROCRYSTAL 26360743456 No Longer Active Bertrand Patel DO Active MACRODANTIN 100 MG ORAL CAPSULE one p.o. b.i.d. x2 weeks MACRODANTIN 100 MG ORAL CAPSULE 2053196 NITROFURANTOIN MACROCRYSTAL Inactive TRANSDERM-SCOP (1.5 MG) 1 [...] days PERMETHRIN 5 % EXTER NAL CREAM 668436 PERMETHRIN Inactive WELLBUTRIN 75 MG ORAL TABLET 2 times daily WELLBUTRIN 75 MG ORAL TABLET BUPROPION HCL Inactive CYMBALTA 30 MG ORAL CAPSULE DELAYED RELEASE PARTICLES 1 cap by mouth daily CYMBALTA 30 MG ORAL CAPSULE DELAYED RELE ASE PARTICLES 845282 DULOXETINE HCL Inactive AZITHROMYCIN 500 MG INTRAVENOUS SOLUTION RECONSTITUTED 1 po q da y AZITHROMYCIN 500 MG INTRAVENOUS SOLUTION RECONSTITUTED 97417 153895 AZITHROMYCIN Inactive CINNAMON ALPHA LIPOIC AC CMPLX CAPSULE by mouth twice a day in AM by mouth twice a day in PM CINNAMON ALPHA LIPOIC AC CMPLX CAPSULE ALPHA LIPOIC [id number] CAPS Inactive MICARDIS HCT 80-12.5 MG ORAL TABLET 1 qd 07/30 MICARDIS HCT 80-12.5 MG ORAL TABLET 977230 TELMISARTAN-HCTZ Inactive PRAVASTATIN SODIUM 20 MG ORAL TABLET 1 tablet by mouth daily at bedtime PRAVASTATIN SODIUM 20 MG ORAL TABLET 492020 PRAVASTATIN SODIUM Inactive FUROSEMIDE 20 MG ORAL TABLET 1 pill by mouth daily if needed for edema FUROSEMIDE 20 MG ORAL TABLET 079633 FUROSEMIDE Inactive METFORMIN HCL 500 MG ORAL TABLET 1 bid METFORMIN HCL 500 MG ORAL TABLET 852376 METFORMIN HCL Inactive B-12 1000 MCG ORAL CAPSULE 1 tab daily B -12 1000 MCG ORAL CAPSULE CYANOCOBALAMIN Inactive VITAMIN E 200 UNIT ORAL CAPSULE 1 cap po qd 1 VITAMIN E 200 UNIT ORAL CAPSULE 3942994 VITAMIN E Inactive [facility] MELATONIN 5-10 MG [...] po daily AZITHROMYCIN 250 MG ORAL TABLET 832168 AZITHROMY BERNARDO Inactive SYMBICORT 160-4.5 MCG/ACT INHALATION AEROSOL 2 puffs BID 9 SYMBICORT 160-4.5 MCG/ACT INHALATION AEROSOL BUDESONIDE-FORM OTEROL FUMARATE Inactive ALBUTEROL SULFATE (2.5 MG/3ML) 0.083% INHALATION NEBUL IZATION SOLUTION one vial per nebulizer every 4-6 hours as needed ALBUTEROL SULFATE (2.5 MG/3ML) 0.083% INHALATION NEBULIZATION SOLUTION 791401 ALBUTER OL SULFATE Inactive NEBULIZER use as directed NEBULIZER NEBULI ZERS Inactive TESSALON PERLES 100 MG ORAL CAPSULE 1 tablet by mouth 3 times da juan pablo TESSALON PERLES 100 MG ORAL CAPSULE 536164 BENZONATATE Inactive CYCLOBENZAPRINE HCL 10 MG ORAL TABLET Take 1 tab TID PRN for mus triston pain CYCLOBENZAPRINE HCL 10 MG ORAL TABLET 955530 CYCLOBENZA ANUJA HCL Inactive AUGMENTIN 875-125 MG ORAL TABLET 1 po BID x 10 days 18/04/06 AUGMENTIN 875-125 MG ORAL TABLET AMOXICILLIN-POT CLAVULANATE Inactive BACTROBAN 2 % EXTERNAL CREAM Apply to affected area BID for up to 10 days BACTROBAN 2 % EXTERNAL CREAM MUPIROCIN CA LCIUM Inactive VITAMIN D3 15457 UNIT ORAL CAPSULE 1 pill Week x 4 mo nths for vitamin D deficiency/osteoporosis VITAMIN D3 03040 UNIT ORAL CAPSULE CHOLECALCIFEROL Inactive BENZONATATE 200 MG ORAL CAPSULE 1 three times a day as neede d for cough BENZONATATE 200 MG ORAL CAPSULE 480505 BENZONATA TE Inactive ZITHROMAX Z-MARTIN 250 MG ORAL TABLET 2 today and then 1 daily for 4 days ZITHROMAX Z-MARTIN 250 MG ORAL TABLET 143395 AZITHR OMYCIN Inactive ADDERALL 10 MG ORAL TABLET 1 tab twice daily 2 ADDERALL 10 MG ORAL TABLET 249867 AMPHETAMINE-DEXTROAMPHETAMINE Inactive LEVAQUIN 500 MG ORAL TABLET 1 tablet by mouth daily 21/06/28 LEVAQUIN 500 MG ORAL TABLET 979392 LEVOFLOXACIN Inactive AMOXICILLIN 500 MG ORAL CAPSULE 2 po BID x 10 days 201 07/15/00 AMOXICILLIN 500 MG ORAL CAPSULE 313866 AMOXICILLIN Inactive AZITHROMYCIN 250 MG ORAL TABLET take 2 po today then take 1 po days 2-5 AZITHROMYCIN 250 MG ORAL TABLET 852630 AZITHROMY BERNARDO Inactive LEVAQUIN 500 MG ORAL TABLET 1 pill by mouth daily 2013 LEVAQUIN 500 MG ORAL TABLET 412023 LEVOFLOXACIN Inactive AUGMENTIN 875-125 MG ORAL TABLET [...] days 08/02 PREDNISONE 20 MG ORAL TABLET 574583 PREDNISONE Inactive CIPRO 500 MG ORAL TABLET 1 tablet by mouth twice daily CIPRO 500 MG ORAL TABLET 583765 CIPROFLOXACIN HCL Inactive DOXYCYCLINE HYCLATE 100 MG ORAL CAPSULE 1 cap by mouth twice jong ly DOXYCYCLINE HYCLATE 100 MG ORAL CAPSULE 3488387 DOXYCYCL INE HYCLATE Inactive PREDNISONE 20 MG [...] negative Strep Screen Lot Number (CLIA Waived) [id number] Strep Screen Exp Date (CLIA Waived) 05/02/2020 Encounters Code Encounter Date Provider Facility CPT-87701 [id number] Vst-Est Level III 16:58:04 CDT Nh nae Arell [facility]-10386 52389-Iao Vst-Est Level IV 14:46:36 UNIT AID Foster Patel [facility]-81004 Level 3 Est. Patient 12:37:30 UNIT AID Galilea Se [facility]-23091 Level 3 Est. Patient 11:40:23 CDT Bertrand marquez [facility] CPT-79824 Level 4 Est. Patient 15:33:35 UNIT AID Bertrand marquez [facility]-28079 Level 4 Est. Patient 12:31:54 CDT Bertrand marquez [facility]-19246 Level 3 Est. Patient 11:27:00 UNIT AID Ike Deluna MD [facility]-37601 Level 3 Est. Patient 08:50:57 UNIT AID Silvia Are [facility]-32131 Level 3 Est. Patient 10:04:13 CDT Bertrand marquez [facility]-52592 Level 4 Est. Patient 16:02:10 UNIT AID Silvia Are [facility]-19052 Level 3 Est. Patient 13:04:54 UNIT AID Silvia Are [facility]-01490 Level 3 Est. Patient 12:56:37 CDT Bertrand marquez [facility] CPT-89893 Level 3 Est. Patient 19:12:03 CDT Yoli tolbert MD [facility]-29614 Level 3 Est. Patient 14:36:01 CDT Yoli tolbert MD [facility]-14910 Level 2 Est. Patient 08:00:22 CDT Jcarlos dc MD [facility]-51630 Level 3 Est. Patient 19:06:55 CDT Bertrand marquez [facility]-34465 Level 3 Est. Patient 10:08:23 UNIT AID Bertrand marquez [facility] CPT-09091 Level 3 Est. Patient 16:37:54 UNIT AID Bertrand marquez [facility] CPT-86561 Level 3 Est. Patient 11:31:59 UNIT AID Bertrand marquez [facility] CPT-43799 Level 3 Est. Patient 10:20:08 CDT Adolfo villasenor [facility] CPT-06489 Level 3 Est. Patient 13:45:20 CDT Sanket Josekelvin buckley [facility] CPT-18571 Level 3 Est. Patient 12:51:06 CDT Adolfo villasenor [facility] CPT-55398 Level 3 Est. Patient 11:22:51 UNIT AID Yoli tolbert MD PhD [facility] CPT-05725 Level 3 Est. Patient 13:33:19 CDT Bertradn marquez [facility] Procedures Code Procedure Name Date Entry Date Standard Desc ription CPT-87504 Wound Culture - LAB USE ONLY 15:45:25 CDT 2 CPT-56108 Venipuncture Draw Fee 10:23:01 CDT CPT-J0696 Rocephin 1000 mg (Ceftriaxone) 16:20:30 UNIT AID CPT-29456 Abx/Therapy Injection 16:20:29 UNIT AID CPT-J0696 Rocephin 1gm Inj Solr 15:51:59 UNIT AID CPT-64297 Chest 2V Frontal and Lat 15:20:28 UNIT AID 07/22 CPT-54465 Breathing Tx 14:51:55 UNIT AID CPT-99535 Breathing Tx 09:57:16 UNIT AID CPT-37617 Knee comp 4/> V 11:58:06 UNIT AID
--- OUTSIDE RECORDS SUMMARY | 2019-11-13 09:51 | XMS REPORT | Clinical Summary ---
Author Author Admin, Enrique Adamson Organization Down Address Unknown Phone Unavailable Allergies, Adverse Reactions, [...] 09/09/28 EDEMA LEG ICD-782.3 Inactive Adele Feldman UPHOLSTERY CUTTER 201 01/01/02 SHORTNESS OF BREATH ICD-786.05 Inactive Yoli Mercado MD PhD RIB PAIN, RIGHT SIDED ICD-786.50 Inactive Yoli Mercado MD PhD KNEE PAIN, RIGHT ICD-719.46 Inactive Adele Alexusu ghn UPHOLSTERY CUTTER Knee pain, left ICD-719.46 Inactive Adele Alexusug hn UPHOLSTERY CUTTER Pharyngitis-Acute ICD-462 Inactive Bertrand Redmond DO Polyuria ICD-788.42 Inactive Yoli Mercado MD P Cellulitis, leg, right ICD-682.6 Inactive Yuki Deluna MD Foreign body, ear ICD-931 Inactive Yoli salazar MD PhD Fatigue ICD-780.79 Inactive Ike Deluna MD 201 12/01/06 Headache ICD-784.0 Inactive Adele Feldman UPHOLSTERY CUTTER 2017 Cough ICD-786.2 Inactive Adele Feldman UPHOLSTERY CUTTER 06/04 SINUSITIS, ACUTE ICD-461.9 Inactive Ike lange MD Fatigue ICD-780.79 Inactive Adele Feldman UPHOLSTERY CUTTER 2017 Bronchitis acute with bronchospasm ICD-466.0 I nactive Bertrand Patel DO Animal bite ICD-919.8 Inactive Adele Feldman LP N Mycoplasma infection ICD-041.81 Inactive Anit a Feldman UPHOLSTERY CUTTER Amenorrhea, secondary ICD-626.0 Inactive Clotilde alcantara Gaston HUNGN Left maxillary sinusitis ICD-473.0 Inactive Bertrand Patel DO Medication List Medication Instructions Start Date Stop Date Generic Name ND Status Provider Patient Instruction SUDAFED 12 HOUR 120 MG ORAL TABLET EXTENDED RELEASE 12 HOUR 1 pill twice daily if for congestion PSEUDOEPHEDRINE HCL 86557492001 Active Silvia Arekalin TOVARN Active CHERATUSSIN AC 100-10 MG/5ML ORAL SYRUP 5ml po q6hr PRN Cough 20 21/03/15 GUAIFENESIN-CODEINE 03167418731 Active Silvia Arell GUARD MANAGER Active FLUTICASONE PROPIONATE 50 MCG/ACT NASAL SUSPENSION 2 s prays per nostril daily for 2 weeks, then 1 spray each nostril PRN FLUTI CASONE PROPIONATE 76883850959 Active Silvia Faisalkalin TOVARN Active MODAFINIL 200 MG TABS TAKE 1/2 TABLET BY MOUTH IN THE MORNING AND 1/2 TABLET BY MOUTH AT NOON MODAFINIL 93787337570 Active Adele Gaston HUNGN Active HYDROCODONE-ACETAMINOPHEN 7.5-325 MG TABS TAKE 1 TABLE T BY MOUTH EVERY SIX HOURS NEEDED FOR PAIN HYDROCODONE-ACETAMINOPHEN 09583601834 A ctive Adele Feldman UPHOLSTERY CUTTER Active ALPRAZOLAM 0.5 MG TABS TAKE 1 TABLET THREE TIMES DAILY ALPRAZOLAM 46198324645 Active Adele Feldman LPN Active EVENING PRIMROSE OIL 1000 MG ORAL CAPSULE 1 capsule once daily EVENING PRIMROSE OIL 91901938320 Active Bertrand Patel DO Active LEVAQUIN 500 MG ORAL TABLET 1 tablet by mouth daily 20 21/06/28 LEVOFLOXACIN 51092023619 No Longer Active Bertrand Patel DO Active PREDNISONE 20 MG ORAL TABLET Take 3 tabs for 3 days, t hen 2 tabs for 3 days, then 1 tab for 3 days PREDNISONE 63591276414 No Rainer fatou Active Galilea Sell GUARD MANAGER Active DOXYCYCLINE HYCLATE 100 MG ORAL CAPSULE 1 cap by mouth twice jong ly DOXYCYCLINE HYCLATE 69633569150 No Longer Active Galilea Sell GUARD MANAGER Active ADDERALL 10 MG ORAL TABLET 1 tab twice daily 2 AMPHETAMINE-DEXTROAMPHETAMINE 50603880794 No Longer Active Nitza Phi llips Scribe Active ZITHROMAX Z-MARTIN 250 MG ORAL TABLET 2 today and then 1 daily for 4 days AZITHROMYCIN 51884612410 No Longer Active Nitza Osman lips Scribe Active BENZONATATE 200 MG ORAL CAPSULE 1 three times a day as neede d for cough BENZONATATE 82341961479 No Longer Active Nitza Osman lips Scribe Active VITAMIN D3 18849 UNIT ORAL CAPSULE 1 pill Week x 4 mo nths for vitamin D deficiency/osteoporosis CHOLECALCIFEROL 82201707693 N o Longer Active Layla Garcia Active BACTROBAN 2 % EXTERNAL CREAM Apply to affected area BID for up to 10 days MUPIROCIN CALCIUM 89362846308 No Longer Active Ike Deluna MD Active CIPRO 500 MG ORAL TABLET 1 tablet by mouth twice daily CIPROFLOXACIN HCL 36700389471 No Longer Active Adriana Bender LPN Active AUGMENTIN 875-125 MG ORAL TABLET 1 po BID x 10 days 18/04/06 AMOXICILLIN-POT CLAVULANATE 56212733640 No Longer Active Adriana Bender LPN Active CYCLOBENZAPRINE HCL 10 MG ORAL TABLET Take 1 tab TID PRN for mus triston pain CYCLOBENZAPRINE HCL 76371264157 No Longer Active Bertrand Patel DO Active TESSALON PERLES 100 MG ORAL CAPSULE 1 tablet by mouth 3 times da juan pablo BENZONATATE 65057646038 No Longer Active Bertrand Patel DO Ac tive NEBULIZER use as directed NEBULIZERS 82521793763 No Longer Active Bertrand Patel DO Active ALBUTEROL SULFATE (2.5 MG/3ML) 0.083% INHALATION NEBUL IZATION SOLUTION one vial per nebulizer every 4-6 hours as needed ALBUTERO L SULFATE 57913266635 No Longer Active Bertrand Patel DO Active SYMBICORT 160-4.5 MCG/ACT INHALATION AEROSOL 2 puffs BID 9 BUDESONIDE-FORMOTEROL FUMARATE 39203125695 No Longer Active Bertrand Patel DO Active PREDNISONE 20 MG ORAL TABLET take 3 tabs daily for 3 d ays, 2 tabs daily for 3 days, 1 tab daily for 3 days, 1/2 tab daily for 3 days 08/02 PREDNISONE 16971717902 No Longer Active Silvia Vazquez GUARD MANAGER Active AZITHROMYCIN 250 MG ORAL TABLET Take 2 tabs po today then 1 tab po daily AZITHROMYCIN 00323455619 No Longer Active Silvia Arell GUARD MANAGER Active AUGMENTIN 875-125 MG ORAL TABLET 1 po BID x 10 days 20 19/07/13 AMOXICILLIN-POT CLAVULANATE 25172216123 No Longer Active Adriana Bender LPN Active CHEWABLE CALCIUM 500-200-40 MG-UNT-MCG ORAL TABLET CHEWABLE 1 chew tab bid CALCIUM-VITAMIN D-VITAMIN K 72804227891 Active Silvia Are ll GUARD MANAGER Active EQ COMPLETE MULTIVIT ADULT 50+ ORAL TABLET 1 tab po bid MULTIPLE VITAMINS-MINERALS 64586520146 Active Silvia Arell GUARD MANAGER Active LORTAB 7.5-500 MG ORAL TABLET take one po Q6 hours 201 09/12/01 HYDROCODONE-ACETAMINOPHEN 00018589958 No Longer Active Nirmal Robbins RN Active [facility] MELATONIN 5-10 MG ORAL TABLET EXTENDED RELEASE Jair e one by mouth daily at bedtime MELATONIN-PYRIDOXINE 99260149513 No Longer Acti ve Bertrand Patel DO Active VITAMIN E 200 UNIT ORAL CAPSULE 1 cap po qd VITAM IN E 78038591952 No Longer Active Bertrand Patel DO Active B-12 1000 MCG ORAL CAPSULE 1 tab daily CYANOCOB ALAMIN 03785840162 No Longer Active Bertrand Patel DO Active METFORMIN HCL 500 MG ORAL TABLET 1 bid METFOR MIN HCL 93236288939 No Longer Active Bertrand W Jorge DO Active FUROSEMIDE 20 MG ORAL TABLET 1 pill by mouth daily if needed for edema FUROSEMIDE 37158845407 No Longer Active Bertrand Patel DO Active PRAVASTATIN SODIUM 20 MG ORAL TABLET 1 tablet by mouth daily at bedtime PRAVASTATIN SODIUM 05373885852 No Longer Active Bertrand Patel DO Active AUGMENTIN 875-125 MG ORAL TABLET 1 pill by mouth twice daily 201 09/10/00 AMOXICILLIN-POT CLAVULANATE 40686947413 No Longer Active Yoli Mercado MD PhD Active LEVAQUIN 500 MG ORAL TABLET 1 pill by mouth daily 2013 LEVOFLOXACIN 47261877420 No Longer Active Yoli Mercado MD PhD Acti ve AMLODIPINE BESYLATE 5 MG ORAL TABLET 1 tablet by mouth daily for blood pressure AMLODIPINE BESYLATE 82727016827 Active Bertrand Patel DO Active MICARDIS 80 MG ORAL TABLET 1 tablet daily for blood pressure 07/30 TELMISARTAN 52879959369 Active Bertrand Patel DO Active MICARDIS HCT 80-12.5 MG ORAL TABLET 1 qd TELMISARTAN-HCTZ 42957247147 No Longer Active Bertrand Patel DO Active CINNAMON ALPHA LIPOIC AC CMPLX CAPSULE by mouth twice a day in AM by mouth twice a day in PM ALPHA LIPOIC [id number] CA PS 05836512185 No Longer Active Bertrand Patel DO Active AZITHROMYCIN 500 MG INTRAVENOUS SOLUTION RECONSTITUTED 1 po q da y AZITHROMYCIN 27537372595 No Longer Active Bertrand Patel DO A ctive CYMBALTA 30 MG ORAL CAPSULE DELAYED RELEASE PARTICLES 1 cap by mouth daily DULOXETINE HCL 92934375029 No Longer Active Bertrand marquez DO Active CYMBALTA 60 MG ORAL CAPSULE DELAYED RELEASE PARTICLES 1 cap by mouth daily DULOXETINE HCL 43759963541 Active Bertrand Patel DO Active WELLBUTRIN 75 MG ORAL TABLET 2 times daily BUPR OPION HCL 88010937851 No Longer Active Bertrand Patel DO Active PROAIR HFA 108 (90 Base) MCG/ACT INHALATION AEROSOL SO LUTION take one to two puffs po Q4-6 hour prn cough and shortness of breath ALBUTEROL SULFATE 44451496921 Active Bertrand Patel DO Active AZITHROMYCIN 250 MG ORAL TABLET take 2 po today then take 1 po days 2-5 AZITHROMYCIN 71669602416 No Longer Active Adolfo traore PA Active PERMETHRIN 5 % EXTERNAL CREAM apply neck to toes tonig ht and then rinse off in morning. repeat at 7 days PERMETHRIN 52382526468 No Longer Active Adolfo OSORIO Active AMOXICILLIN 500 MG ORAL CAPSULE 2 po BID x 10 days 201 07/15/00 AMOXICILLIN 97171429503 No Longer Active Yoli Mercado MD PhD Acti ve INSUPEN ULTRAFIN 31G X 6 MM USE DIRECTED INSULIN PEN NEEDLE 60727096437 No Longer Active Bertrand Patel DO Active TRANSDERM-SCOP (1.5 MG) 1 MG/3DAYS TRANSDERMAL PATCH 7 2 HOUR 1 patch applied behind ear q 3 day SCOPOLAMINE BASE 11984481431 No Lo nger Active Bertrand Patel DO Active MACRODANTIN 100 MG ORAL CAPSULE one p.o. b.i.d. x2 weeks NITROFURANTOIN MACROCRYSTAL 04076370187 No Longer Active Bertrand Patel DO Active MACRODANTIN 100 MG ORAL CAPSULE one p.o. b.i.d. x2 weeks MACRODANTIN 100 MG ORAL CAPSULE 0738044 NITROFURANTOIN MACROCRYSTAL Inactive TRANSDERM-SCOP (1.5 MG) 1 [...] days PERMETHRIN 5 % EXTER NAL CREAM 841992 PERMETHRIN Inactive WELLBUTRIN 75 MG ORAL TABLET 2 times daily WELLBUTRIN 75 MG ORAL TABLET BUPROPION HCL Inactive CYMBALTA 30 MG ORAL CAPSULE DELAYED RELEASE PARTICLES 1 cap by mouth daily CYMBALTA 30 MG ORAL CAPSULE DELAYED RELE ASE PARTICLES 925766 DULOXETINE HCL Inactive AZITHROMYCIN 500 MG INTRAVENOUS SOLUTION RECONSTITUTED 1 po q da y AZITHROMYCIN 500 MG INTRAVENOUS SOLUTION RECONSTITUTED 36411 751386 AZITHROMYCIN Inactive CINNAMON ALPHA LIPOIC AC CMPLX CAPSULE by mouth twice a day in AM by mouth twice a day in PM CINNAMON ALPHA LIPOIC AC CMPLX CAPSULE ALPHA LIPOIC [id number] CAPS Inactive MICARDIS HCT 80-12.5 MG ORAL TABLET 1 qd 07/30 MICARDIS HCT 80-12.5 MG ORAL TABLET 876235 TELMISARTAN-HCTZ Inactive PRAVASTATIN SODIUM 20 MG ORAL TABLET 1 tablet by mouth daily at bedtime PRAVASTATIN SODIUM 20 MG ORAL TABLET 925710 PRAVASTATIN SODIUM Inactive FUROSEMIDE 20 MG ORAL TABLET 1 pill by mouth daily if needed for edema FUROSEMIDE 20 MG ORAL TABLET 728828 FUROSEMIDE Inactive METFORMIN HCL 500 MG ORAL TABLET 1 bid METFORMIN HCL 500 MG ORAL TABLET 806503 METFORMIN HCL Inactive B-12 1000 MCG ORAL CAPSULE 1 tab daily B -12 1000 MCG ORAL CAPSULE CYANOCOBALAMIN Inactive VITAMIN E 200 UNIT ORAL CAPSULE 1 cap po qd 1 VITAMIN E 200 UNIT ORAL CAPSULE 5584913 VITAMIN E Inactive [facility] MELATONIN 5-10 MG [...] po daily AZITHROMYCIN 250 MG ORAL TABLET 965864 AZITHROMY BERNARDO Inactive SYMBICORT 160-4.5 MCG/ACT INHALATION AEROSOL 2 puffs BID 9 SYMBICORT 160-4.5 MCG/ACT INHALATION AEROSOL BUDESONIDE-FORM OTEROL FUMARATE Inactive ALBUTEROL SULFATE (2.5 MG/3ML) 0.083% INHALATION NEBUL IZATION SOLUTION one vial per nebulizer every 4-6 hours as needed ALBUTEROL SULFATE (2.5 MG/3ML) 0.083% INHALATION NEBULIZATION SOLUTION 583813 ALBUTER OL SULFATE Inactive NEBULIZER use as directed NEBULIZER NEBULI ZERS Inactive TESSALON PERLES 100 MG ORAL CAPSULE 1 tablet by mouth 3 times da juan pablo TESSALON PERLES 100 MG ORAL CAPSULE 089815 BENZONATATE Inactive CYCLOBENZAPRINE HCL 10 MG ORAL TABLET Take 1 tab TID PRN for mus triston pain CYCLOBENZAPRINE HCL 10 MG ORAL TABLET 675910 CYCLOBENZA ANUJA HCL Inactive AUGMENTIN 875-125 MG ORAL TABLET 1 po BID x 10 days 18/04/06 AUGMENTIN 875-125 MG ORAL TABLET AMOXICILLIN-POT CLAVULANATE Inactive BACTROBAN 2 % EXTERNAL CREAM Apply to affected area BID for up to 10 days BACTROBAN 2 % EXTERNAL CREAM MUPIROCIN CA LCIUM Inactive VITAMIN D3 12579 UNIT ORAL CAPSULE 1 pill Week x 4 mo nths for vitamin D deficiency/osteoporosis VITAMIN D3 66819 UNIT ORAL CAPSULE CHOLECALCIFEROL Inactive BENZONATATE 200 MG ORAL CAPSULE 1 three times a day as neede d for cough BENZONATATE 200 MG ORAL CAPSULE 543911 BENZONATA TE Inactive ZITHROMAX Z-MARTIN 250 MG ORAL TABLET 2 today and then 1 daily for 4 days ZITHROMAX Z-MARTIN 250 MG ORAL TABLET 703087 AZITHR OMYCIN Inactive ADDERALL 10 MG ORAL TABLET 1 tab twice daily 2 ADDERALL 10 MG ORAL TABLET 275561 AMPHETAMINE-DEXTROAMPHETAMINE Inactive LEVAQUIN 500 MG ORAL TABLET 1 tablet by mouth daily 21/06/28 LEVAQUIN 500 MG ORAL TABLET 217864 LEVOFLOXACIN Inactive AMOXICILLIN 500 MG ORAL CAPSULE 2 po BID x 10 days 201 07/15/00 AMOXICILLIN 500 MG ORAL CAPSULE 699919 AMOXICILLIN Inactive AZITHROMYCIN 250 MG ORAL TABLET take 2 po today then take 1 po days 2-5 AZITHROMYCIN 250 MG ORAL TABLET 948371 AZITHROMY BERNARDO Inactive LEVAQUIN 500 MG ORAL TABLET 1 pill by mouth daily 2013 LEVAQUIN 500 MG ORAL TABLET 847628 LEVOFLOXACIN Inactive AUGMENTIN 875-125 MG ORAL TABLET [...] days 08/02 PREDNISONE 20 MG ORAL TABLET 057608 PREDNISONE Inactive CIPRO 500 MG ORAL TABLET 1 tablet by mouth twice daily CIPRO 500 MG ORAL TABLET 473631 CIPROFLOXACIN HCL Inactive DOXYCYCLINE HYCLATE 100 MG ORAL CAPSULE 1 cap by mouth twice jong ly DOXYCYCLINE HYCLATE 100 MG ORAL CAPSULE 6880743 DOXYCYCL INE HYCLATE Inactive PREDNISONE 20 MG [...] negative Strep Screen Lot Number (CLIA Waived) [id number] Strep Screen Exp Date (CLIA Waived) 05/02/2020 Encounters Code Encounter Date Provider Facility CPT-29191 [id number] Vst-Est Level III 16:58:04 CDT Sc nae Arell [facility]-44559 [id number] Vst-Est Level IV 14:46:36 CASH SHORTAGE INVESTIGATOR Foster Patel [facility]-47703 Level 3 Est. Patient 12:37:30 CASH SHORTAGE INVESTIGATOR Galilea Se [facility]-53204 Level 3 Est. Patient 11:40:23 CDT Bertrand marquez [facility] CPT-99506 Level 4 Est. Patient 15:33:35 CASH SHORTAGE INVESTIGATOR Bertrand marquez [facility]-67599 Level 4 Est. Patient 12:31:54 CDT Bertrand marquez [facility]-60814 Level 3 Est. Patient 11:27:00 CASH SHORTAGE INVESTIGATOR Ike Deluna MD [facility]-58931 Level 3 Est. Patient 08:50:57 CASH SHORTAGE INVESTIGATOR Silvia Are [facility]-22678 Level 3 Est. Patient 10:04:13 CDT Bertrand marquez [facility]-73072 Level 4 Est. Patient 16:02:10 CASH SHORTAGE INVESTIGATOR Silvia Are [facility]-74374 Level 3 Est. Patient 13:04:54 CASH SHORTAGE INVESTIGATOR Silvia Are [facility]-21270 Level 3 Est. Patient 12:56:37 CDT Bertrand marquez [facility] CPT-83188 Level 3 Est. Patient 19:12:03 CDT Yoli tolbert MD [facility]-17626 Level 3 Est. Patient 14:36:01 CDT Yoli tolbert MD [facility]-33166 Level 2 Est. Patient 08:00:22 CDT Jcarlos dc MD [facility]-36933 Level 3 Est. Patient 19:06:55 CDT Bertrand marquez [facility]-20960 Level 3 Est. Patient 10:08:23 CASH SHORTAGE INVESTIGATOR Bertrand marquez [facility] CPT-23748 Level 3 Est. Patient 16:37:54 CASH SHORTAGE INVESTIGATOR Bertrand marquez [facility] CPT-19525 Level 3 Est. Patient 11:31:59 CASH SHORTAGE INVESTIGATOR Bertrand marquez [facility] CPT-64622 Level 3 Est. Patient 10:20:08 CDT Adolfo villasenor [facility] CPT-55702 Level 3 Est. Patient 13:45:20 CDT Sanket Josekelvin buckley [facility] CPT-20018 Level 3 Est. Patient 12:51:06 CDT Adolfo villasenor [facility] CPT-91543 Level 3 Est. Patient 11:22:51 CASH SHORTAGE INVESTIGATOR Yoli tolbert MD PhD [facility] CPT-36828 Level 3 Est. Patient 13:33:19 CDT Bertrand marquez [facility] Procedures Code Procedure Name Date Entry Date Standard Desc ription CPT-39709 Wound Culture - LAB USE ONLY 15:45:25 CDT 2 CPT-55473 Venipuncture Draw Fee 10:23:01 CDT CPT-J0696 Rocephin 1000 mg (Ceftriaxone) 16:20:30 CASH SHORTAGE INVESTIGATOR CPT-29099 Abx/Therapy Injection 16:20:29 CASH SHORTAGE INVESTIGATOR CPT-J0696 Rocephin 1gm Inj Solr 15:51:59 CASH SHORTAGE INVESTIGATOR CPT-14682 Chest 2V Frontal and Lat 15:20:28 CASH SHORTAGE INVESTIGATOR 07/22 CPT-47817 Breathing Tx 14:51:55 CASH SHORTAGE INVESTIGATOR CPT-73991 Breathing Tx 09:57:16 CASH SHORTAGE INVESTIGATOR CPT-92303 Knee comp 4/> V 11:58:06 CASH SHORTAGE INVESTIGATOR
--- OUTSIDE RECORDS SUMMARY | 2019-11-13 09:51 | XMS REPORT | Clinical Summary ---
Author Author Admin, Enrique Adamson Organization [facility] Address Unknown Phone Unavailable Allergies, Adverse Reactions, [...] infection Mycoplasma infection 041.81 Resolved Abiel ti Harprete Patel Mycoplasma infection in cond itions classified elsewhere [...] medical examination at a health care facility SCABIES ICD-133.0 Inactive Yoli Mercado MD PhD [...] PhD Knee pain, left ICD-719.46 Inactive Adele Holden hn VALANCE CUTTER Pharyngitis-Acute ICD-462 Inactive Bertrand Redmond DO Polyuria ICD-788.42 Inactive Yoli Mercado MD P hD Cellulitis, leg, right ICD-682.6 Inactive Yuki Deluna MD Foreign body, ear ICD-931 Inactive Yoli salazar MD PhD Fatigue ICD-780.79 Inactive Ike Deluna MD 201 12/01/06 Headache ICD-784.0 Inactive Adele Gaston ARTHUR 2017 Cough ICD-786.2 Inactive Adeel Gaston ARTHUR 06/04 SINUSITIS, ACUTE ICD-461.9 Inactive Ike lange MD Fatigue ICD-780.79 Inactive Adele Gaston ARTHUR 2017 EDEMA LEG ICD-782.3 Inactive Adele Gaston ARTHUR 201 01/01/02 Bronchitis acute with bronchospasm ICD-466.0 I nactive Bertrand Patel DO Animal bite ICD-919.8 Inactive Adele Gaston Chawla Mycoplasma infection ICD-041.81 Inactive Anit a Gaston ARTHUR Amenorrhea, secondary ICD-626.0 Inactive Ani ta Gaston ARTHUR Left maxillary sinusitis ICD-473.0 Inactive Bertrand Patel DO KNEE PAIN, RIGHT ICD-719.46 Inactive Adele Yin chiu LPN Medication List Medication Instructions Start Date Stop Date Generic Name NDC Status Provider Patient Instruction MODAFINIL 200 MG TABS TAKE 1/2 TABLET BY MOUTH IN THE MORNING AND 1/2 TABLET BY MOUTH AT NOON MODAFINIL 49408935685 Active Adele Feldman VALANCE CUTTER Active HYDROCODONE-ACETAMINOPHEN 7.5-325 MG TABS TAKE 1 TABLE T BY MOUTH EVERY SIX HOURS NEEDED FOR PAIN HYDROCODONE-ACETAMINOPHEN 54650620396 A ctive Adele Feldman VALANCE CUTTER Active ALPRAZOLAM 0.5 MG TABS TAKE 1 TABLET THREE TIMES DAILY ALPRAZOLAM 64604333890 Active Adele Feldman VALANCE CUTTER Active EVENING PRIMROSE OIL 1000 MG ORAL CAPSULE 1 capsule once daily EVENING PRIMROSE OIL 70093983651 Active Bertrand Patel DO Active LEVAQUIN 500 MG ORAL TABLET 1 tablet by mouth daily 20 21/06/28 LEVOFLOXACIN 71413854077 No Longer Active Bertrand Patel DO Active PREDNISONE 20 MG ORAL TABLET Take 3 tabs for 3 days, t hen 2 tabs for 3 days, then 1 tab for 3 days PREDNISONE 59444971640 No Rainer fatou Active Galilea Sell LIEUTENANT BALLISTICS Active DOXYCYCLINE HYCLATE 100 MG ORAL CAPSULE 1 cap by mouth twice jong ly DOXYCYCLINE HYCLATE 49004860645 No Longer Active Galilea Sell LIEUTENANT BALLISTICS Active ADDERALL 10 MG ORAL TABLET 1 tab twice daily 2 AMPHETAMINE-DEXTROAMPHETAMINE 29511448137 No Longer Active Nitza Phi llips Scribe Active ZITHROMAX Z-MARTIN 250 MG ORAL TABLET 2 today and then 1 daily for 4 days AZITHROMYCIN 80099329214 No Longer Active Nitza Osman lips Scribe Active BENZONATATE 200 MG ORAL CAPSULE 1 three times a day as neede d for cough BENZONATATE 19568756735 No Longer Active Nitza Osman lips Scribe Active VITAMIN D3 22545 UNIT ORAL CAPSULE 1 pill Week x 4 mo nths for vitamin D deficiency/osteoporosis CHOLECALCIFEROL 82887905841 N o Longer Active Layla Garcia Active BACTROBAN 2 % EXTERNAL CREAM Apply to affected area BID for up to 10 days MUPIROCIN CALCIUM 08196660805 No Longer Active Ike Deluna MD Active CIPRO 500 MG ORAL TABLET 1 tablet by mouth twice daily CIPROFLOXACIN HCL 42610796037 No Longer Active Adriana Bender LPN Active AUGMENTIN 875-125 MG ORAL TABLET 1 po BID x 10 days 20 18/04/06 AMOXICILLIN-POT CLAVULANATE 26569302520 No Longer Active Adriana Bender LPN Active CYCLOBENZAPRINE HCL 10 MG ORAL TABLET Take 1 tab TID PRN for mus triston pain CYCLOBENZAPRINE HCL 45960491680 No Longer Active Bertrand Patel DO Active TESSALON PERLES 100 MG ORAL CAPSULE 1 tablet by mouth 3 times da juanp ablo BENZONATATE 60417101026 No Longer Active Bertrand Patel DO Ac tive NEBULIZER use as directed NEBULIZERS 39922070554 No Longer Active Bertrand Patel DO Active ALBUTEROL SULFATE (2.5 MG/3ML) 0.083% INHALATION NEBUL IZATION SOLUTION one vial per nebulizer every 4-6 hours as needed ALBUTERO L SULFATE 02240900144 No Longer Active Bertrand Patel DO Active SYMBICORT 160-4.5 MCG/ACT INHALATION AEROSOL 2 puffs BID 9 BUDESONIDE-FORMOTEROL FUMARATE 89739963851 No Longer Active Bertrand Patel DO Active PREDNISONE 20 MG ORAL TABLET take 3 tabs daily for 3 d ays, 2 tabs daily for 3 days, 1 tab daily for 3 days, 1/2 tab daily for 3 days 08/02 PREDNISONE 83454574366 No Longer Active Slivia Vazquez APRN Active AZITHROMYCIN 250 MG ORAL TABLET Take 2 tabs po today then 1 tab po daily AZITHROMYCIN 43436398367 No Longer Active Silvia Vazquez APRN Active AUGMENTIN 875-125 MG ORAL TABLET 1 po BID x 10 days 19/07/13 AMOXICILLIN-POT CLAVULANATE 30674886956 No Longer Active Adriana Bender LPN Active CHEWABLE CALCIUM 500-200-40 MG-UNT-MCG ORAL TABLET CHEWABLE 1 chew tab bid CALCIUM-VITAMIN D-VITAMIN K 49919914902 Active Silvia Are ll LIEUTENANT BALLISTICS Active EQ COMPLETE MULTIVIT ADULT 50+ ORAL TABLET 1 tab po bid MULTIPLE VITAMINS-MINERALS 10518904215 Active Silvia Arell LIEUTENANT BALLIST[employer] Active LORTAB 7.5-500 MG ORAL TABLET take one po Q6 hours 201 09/12/01 HYDROCODONE-ACETAMINOPHEN 16261343638 No Longer Active Nirmal Robbins RN Active [facility] MELATONIN 5-10 MG ORAL TABLET EXTENDED RELEASE Jair e one by mouth daily at bedtime MELATONIN-PYRIDOXINE 46686388299 No Longer Acti ve Bertrand Patel DO Active VITAMIN E 200 UNIT ORAL CAPSULE 1 cap po qd VITAM IN E 37536117702 No Longer Active Bertrand Patel DO Active B-12 1000 MCG ORAL CAPSULE 1 tab daily CYANOCOB ALAMIN 29938542680 No Longer Active Bertrand Patel DO Active METFORMIN HCL 500 MG ORAL TABLET 1 bid METFOR MIN HCL 23248177651 No Longer Active Bertrand Patel DO Active FUROSEMIDE 20 MG ORAL TABLET 1 pill by mouth daily if needed for edema FUROSEMIDE 29693746314 No Longer Active Bertrand Patel DO Active PRAVASTATIN SODIUM 20 MG ORAL TABLET 1 tablet by mouth daily at bedtime PRAVASTATIN SODIUM 30226634621 No Longer Active Bertrand Patel DO Active AUGMENTIN 875-125 MG ORAL TABLET 1 pill by mouth twice daily 201 09/10/00 AMOXICILLIN-POT CLAVULANATE 18752493738 No Longer Active Yoli Mercado MD PhD Active LEVAQUIN 500 MG ORAL TABLET 1 pill by mouth daily 2013 LEVOFLOXACIN 65045331361 No Longer Active Yoli Mercado MD PhD Acti ve AMLODIPINE BESYLATE 5 MG ORAL TABLET 1 tablet by mouth daily for blood pressure AMLODIPINE BESYLATE 93902850817 Active Bertrand Patel DO Active MICARDIS 80 MG ORAL TABLET 1 tablet daily for blood pressure 07/30 TELMISARTAN 02464614169 Active Bertrand Patel DO Active MICARDIS HCT 80-12.5 MG ORAL TABLET 1 qd TELMISARTAN-HCTZ 50273605113 No Longer Active Bertrand Patel DO Active CINNAMON ALPHA LIPOIC AC CMPLX CAPSULE by mouth twice a day in AM by mouth twice a day in PM ALPHA LIPOIC [id number] CA PS 04123519154 No Longer Active Bertrand Patel DO Active AZITHROMYCIN 500 MG INTRAVENOUS SOLUTION RECONSTITUTED 1 po q da y AZITHROMYCIN 08188468020 No Longer Active Bertrand Patel DO A ctive CYMBALTA 30 MG ORAL CAPSULE DELAYED RELEASE PARTICLES 1 cap by mouth daily DULOXETINE HCL 18276848597 No Longer Active Bertrand marquez DO Active CYMBALTA 60 MG ORAL CAPSULE DELAYED RELEASE PARTICLES 1 cap by mouth daily DULOXETINE HCL 35381318742 Active Bertrand Patel DO Active WELLBUTRIN 75 MG ORAL TABLET 2 times daily BUPR OPION HCL 95114932419 No Longer Active Bertrand Patel DO Active PROAIR HFA 108 (90 Base) MCG/ACT INHALATION AEROSOL SO LUTION take one to two puffs po Q4-6 hour prn cough and shortness of breath ALBUTEROL SULFATE 07844069225 Active Bertrand Patel DO Active AZITHROMYCIN 250 MG ORAL TABLET take 2 po today then take 1 po days 2-5 AZITHROMYCIN 75481151415 No Longer Active Adolfo OSORIO Active PERMETHRIN 5 % EXTERNAL CREAM apply neck to toes tonig ht and then rinse off in morning. repeat at 7 days PERMETHRIN 98062453894 No Longer Active Adolfo OSORIO Active AMOXICILLIN 500 MG ORAL CAPSULE 2 po BID x 10 days 201 07/15/00 AMOXICILLIN 28747540918 No Longer Active Yoli Mercado MD PhD Acti ve INSUPEN ULTRAFIN 31G X 6 MM USE DIRECTED INSULIN PEN NEEDLE 00377106724 No Longer Active Bertrand Patel DO Active TRANSDERM-SCOP (1.5 MG) 1 MG/3DAYS TRANSDERMAL PATCH 7 2 HOUR 1 patch applied behind ear q 3 day SCOPOLAMINE BASE 15316362559 No Lo nger Active Bertrand Patel Active MACRODANTIN 100 MG ORAL CAPSULE one p.o. b.i.d. x2 weeks NITROFURANTOIN MACROCRYSTAL 78811511316 No Longer Active Bertrand Villasenor Jorge DO Active MACRODANTIN 100 MG ORAL CAPSULE one p.o. b.i.d. x2 weeks MACRODANTIN 100 MG ORAL CAPSULE 3391070 NITROFURANTOIN MACROCRYSTAL Inactive TRANSDERM-SCOP (1.5 MG) 1 [...] days PERMETHRIN 5 % EXTER NAL CREAM 056013 PERMETHRIN Inactive WELLBUTRIN 75 MG ORAL TABLET 2 times daily WELLBUTRIN 75 MG ORAL TABLET BUPROPION HCL Inactive CYMBALTA 30 MG ORAL CAPSULE DELAYED RELEASE PARTICLES 1 cap by mouth daily CYMBALTA 30 MG ORAL CAPSULE DELAYED RELE ASE PARTICLES 157022 DULOXETINE HCL Inactive AZITHROMYCIN 500 MG INTRAVENOUS SOLUTION RECONSTITUTED 1 po q da y AZITHROMYCIN 500 MG INTRAVENOUS SOLUTION RECONSTITUTED 66235 829298 AZITHROMYCIN Inactive CINNAMON ALPHA LIPOIC AC CMPLX CAPSULE by mouth twice a day in AM by mouth twice a day in PM CINNAMON ALPHA LIPOIC AC CMPLX CAPSULE ALPHA LIPOIC [id number] CAPS Inactive MICARDIS HCT 80-12.5 MG ORAL TABLET 1 qd 07/30 MICARDIS HCT 80-12.5 MG ORAL TABLET 000379 TELMISARTAN-HCTZ Inactive PRAVASTATIN SODIUM 20 MG ORAL TABLET 1 tablet by mouth daily at bedtime PRAVASTATIN SODIUM 20 MG ORAL TABLET 425947 PRAVASTATIN SODIUM Inactive FUROSEMIDE 20 MG ORAL TABLET 1 pill by mouth daily if needed for edema FUROSEMIDE 20 MG ORAL TABLET 176620 FUROSEMIDE Inactive METFORMIN HCL 500 MG ORAL TABLET 1 bid METFORMIN HCL 500 MG ORAL TABLET 303458 METFORMIN HCL Inactive B-12 1000 MCG ORAL CAPSULE 1 tab daily B -12 1000 MCG ORAL CAPSULE CYANOCOBALAMIN Inactive VITAMIN E 200 UNIT ORAL CAPSULE 1 cap po qd 1 VITAMIN E 200 UNIT ORAL CAPSULE 3354133 VITAMIN E Inactive [facility] MELATONIN 5-10 MG [...] po daily AZITHROMYCIN 250 MG ORAL TABLET 736152 AZITHROMY BERNARDO Inactive SYMBICORT 160-4.5 MCG/ACT INHALATION AEROSOL 2 puffs BID 9 SYMBICORT 160-4.5 MCG/ACT INHALATION AEROSOL BUDESONIDE-FORM OTEROL FUMARATE Inactive ALBUTEROL SULFATE (2.5 MG/3ML) 0.083% INHALATION NEBUL IZATION SOLUTION one vial per nebulizer every 4-6 hours as needed ALBUTEROL SULFATE (2.5 MG/3ML) 0.083% INHALATION NEBULIZATION SOLUTION 848507 ALBUTER OL SULFATE Inactive NEBULIZER use as directed NEBULIZER NEBULI ZERS Inactive TESSALON PERLES 100 MG ORAL CAPSULE 1 tablet by mouth 3 times da juan pablo TESSALON PERLES 100 MG ORAL CAPSULE 476699 BENZONATATE Inactive CYCLOBENZAPRINE HCL 10 MG ORAL TABLET Take 1 tab TID PRN for mus triston pain CYCLOBENZAPRINE HCL 10 MG ORAL TABLET 405805 CYCLOBENZA ANUJA HCL Inactive AUGMENTIN 875-125 MG ORAL TABLET 1 po BID x 10 days 20 18/04/06 AUGMENTIN 875-125 MG ORAL TABLET AMOXICILLIN-POT CLAVULANATE Inactive BACTROBAN 2 % EXTERNAL CREAM Apply to affected area BID for up to 10 days BACTROBAN 2 % EXTERNAL CREAM MUPIROCIN CA LCIUM Inactive VITAMIN D3 18477 UNIT ORAL CAPSULE 1 pill Week x 4 mo nths for vitamin D deficiency/osteoporosis VITAMIN D3 25629 UNIT ORAL CAPSULE CHOLECALCIFEROL Inactive BENZONATATE 200 MG ORAL CAPSULE 1 three times a day as neede d for cough BENZONATATE 200 MG ORAL CAPSULE 187770 BENZONATA TE Inactive ZITHROMAX Z-MARTIN 250 MG ORAL TABLET 2 today and then 1 daily for 4 days ZITHROMAX Z-MARTIN 250 MG ORAL TABLET 883327 AZITHR OMYCIN Inactive ADDERALL 10 MG ORAL TABLET 1 tab twice daily 2 ADDERALL 10 MG ORAL TABLET 047130 AMPHETAMINE-DEXTROAMPHETAMINE Inactive LEVAQUIN 500 MG ORAL TABLET 1 tablet by mouth daily 20 21/06/28 LEVAQUIN 500 MG ORAL TABLET 808543 LEVOFLOXACIN Inactive AMOXICILLIN 500 MG ORAL CAPSULE 2 po BID x 10 days 201 07/15/00 AMOXICILLIN 500 MG ORAL CAPSULE 458104 AMOXICILLIN Inactive AZITHROMYCIN 250 MG ORAL TABLET take 2 po today then take 1 po days 2-5 AZITHROMYCIN 250 MG ORAL TABLET 705925 AZITHROMY BERNARDO Inactive LEVAQUIN 500 MG ORAL TABLET 1 pill by mouth daily 2013 LEVAQUIN 500 MG ORAL TABLET 464175 LEVOFLOXACIN Inactive AUGMENTIN 875-125 MG ORAL TABLET [...] days 08/02 PREDNISONE 20 MG ORAL TABLET 859202 PREDNISONE Inactive CIPRO 500 MG ORAL TABLET 1 tablet by mouth twice daily CIPRO 500 MG ORAL TABLET 394482 CIPROFLOXACIN HCL Inactive DOXYCYCLINE HYCLATE 100 MG ORAL CAPSULE 1 cap by mouth twice jong ly DOXYCYCLINE HYCLATE 100 MG ORAL CAPSULE 0153533 DOXYCYCL INE HYCLATE Inactive PREDNISONE 20 MG ORAL TABLET Take 3 tabs for 3 days, t hen 2 tabs for 3 days, then 1 tab for 3 days PREDNISONE 20 MG ORAL TABLET 312 615 PREDNISONE Inactive Vital Signs Date Name Value Unit Range Description blood pressure, diastolic, repeated by physician 84 [...] weight E&M 348 [lb_av] Weight Measure d Encounters Code Encounter Date Provider Facility [id number] Vst-Est Level IV 14:46:36 SENIOR MECHANICAL TECHNICIAN Foster Patel [facility] [place]-67931 Level 3 Est. Patient 12:37:30 SENIOR MECHANICAL TECHNICIAN Galilea Se [facility] CPT-17070 Level 3 Est. Patient 11:40:23 CDT Bertrand marquez [facility] [place]-03052 Level 4 Est. Patient 15:33:35 SENIOR MECHANICAL TECHNICIAN Bertrand marquez [facility] CPT-92994 Level 4 Est. Patient 12:31:54 CDT Bertrand marquez [facility] [place]-95757 Level 3 Est. Patient 11:27:00 SENIOR MECHANICAL TECHNICIAN Ike Deluna MD [facility]-65938 Level 3 Est. Patient 08:50:57 SENIOR MECHANICAL TECHNICIAN Silvia Are ll [facility] CPT-09252 Level 3 Est. Patient 10:04:13 CDT Bertrand marquez [facility] CPT-69296 Level 4 Est. Patient 16:02:10 SENIOR MECHANICAL TECHNICIAN Silvia Are ll [facility] CPT-55824 Level 3 Est. Patient 13:04:54 SENIOR MECHANICAL TECHNICIAN Silvia Are [facility] CPT-57776 Level 3 Est. Patient 12:56:37 CDT Bertrand marquez [facility] CPT-89080 Level 3 Est. Patient 19:12:03 CDT Yoli tolbert MD PhD [facility] CPT-39931 Level 3 Est. Patient 14:36:01 CDT Yoli tolbert MD PhD [facility]-51733 Level 2 Est. Patient 08:00:22 CDT Jcarlos dc MD [facility]-97276 Level 3 Est. Patient 19:06:55 CDT Bertrand marquez [facility] CPT-42643 Level 3 Est. Patient 10:08:23 SENIOR MECHANICAL TECHNICIAN Bertrand marquez [facility] CPT-74513 Level 3 Est. Patient 16:37:54 SENIOR MECHANICAL TECHNICIAN Bertrand marquez [facility] CPT-28068 Level 3 Est. Patient 11:31:59 SENIOR MECHANICAL TECHNICIAN Bertrand marquez [facility] CPT-71045 Level 3 Est. Patient 10:20:08 CDT Adolfo villasenor [facility] CPT-55696 Level 3 Est. Patient 13:45:20 CDT Sanket buckley [facility] CPT-98025 Level 3 Est. Patient 12:51:06 CDT Adolfo villasenor [facility] CPT-66037 Level 3 Est. Patient 11:22:51 SENIOR MECHANICAL TECHNICIAN Yoli tolbert MD PhD [facility] CPT-70288 Level 3 Est. Patient 13:33:19 CDT Bertrand marquez [facility] Procedures Code Procedure Name Date Entry Date Standard Desc ription CPT-88641 Wound Culture - LAB USE ONLY 15:45:25 CDT 2 CPT-88095 Venipuncture Draw Fee 10:23:01 CDT CPT-J0696 Rocephin 1000 mg (Ceftriaxone) 16:20:30 SENIOR MECHANICAL TECHNICIAN CPT-62768 Abx/Therapy Injection 16:20:29 SENIOR MECHANICAL TECHNICIAN CPT-J0696 Rocephin 1gm Inj Solr 15:51:59 SENIOR MECHANICAL TECHNICIAN CPT-46041 Chest 2V Frontal and Lat 15:20:28 SENIOR MECHANICAL TECHNICIAN 07/22 CPT-66616 Breathing Tx 14:51:55 SENIOR MECHANICAL TECHNICIAN CPT-68790 Breathing Tx 09:57:16 SENIOR MECHANICAL TECHNICIAN CPT-09287 Knee comp 4/> V 11:58:06 SENIOR MECHANICAL TECHNICIAN
--- OUTSIDE RECORDS SUMMARY | 2019-11-13 09:51 | XMS REPORT | Clinical Summary ---
Author Author Admin, Enrique Adamson Organization [facility] Address Unknown Phone Unavailable Allergies, Adverse [...] medical examination at a health care facility HEALTH SCREENING ICD-V70.0 Inactive Yoli sabillon MD [...] PAIN, RIGHT ICD-719.46 Inactive Adele Alexusu ghn [employer]ORY PROFESSOR Knee pain, left ICD-719.46 Inactive Adele Adina hn AMER[employer] HISTORY PROFESSOR Pharyngitis-Acute ICD-462 Inactive Bertrand Redmond DO Polyuria ICD-788.42 Inactive Yoli Mercado MD P Cellulitis, leg, right ICD-682.6 Inactive Yuki Deluna MD Foreign body, ear ICD-931 Inactive Yoli salazar MD PhD Fatigue ICD-780.79 Inactive Ike Deluna MD 201 12/01/06 Headache ICD-784.0 Inactive Adele Gaston HUNGN 2017 Cough ICD-786.2 Inactive Adele Feldman AMERICAN HISTORY PROFESSOR 06/04 SINUSITIS, ACUTE ICD-461.9 Inactive Ike lange MD Fatigue ICD-780.79 Inactive Adele Feldman AMERICAN HISTORY PROFESSOR 2017 Bronchitis acute with bronchospasm ICD-466.0 I nactive Bertrand Patel DO Animal bite ICD-919.8 Inactive Adele Feldman LP N Mycoplasma infection ICD-041.81 Inactive Anit a Gaston HUNGN Amenorrhea, secondary ICD-626.0 Inactive Ani ta Gaston AMER[employer] HISTORY PROFESSOR Left maxillary sinusitis ICD-473.0 Inactive Bertrand Patel DO Medication List Medication Instructions Start Date Stop Date Generic Name NDC Status Provider Patient Instruction MODAFINIL 200 MG TABS TAKE 1/2 TABLET BY MOUTH IN THE MORNING AND 1/2 TABLET BY MOUTH AT NOON MODAFINIL 81383345534 Active Adele Feldman AMERICAN HISTORY PROFESSOR Active HYDROCODONE-ACETAMINOPHEN 7.5-325 MG TABS TAKE 1 TABLE T BY MOUTH EVERY SIX HOURS NEEDED FOR PAIN HYDROCODONE-ACETAMINOPHEN 94414852949 A ctive Adele Feldman AMER[employer] HISTORY PROFESSOR Active ALPRAZOLAM 0.5 MG TABS TAKE 1 TABLET THREE TIMES DAILY ALPRAZOLAM 97759996130 Active Adele Feldman AMERICAN HISTORY PROFESSOR Active EVENING PRIMROSE OIL 1000 MG ORAL CAPSULE 1 capsule once daily EVENING PRIMROSE OIL 44589149232 Active Bertrand Patel DO Active LEVAQUIN 500 MG ORAL TABLET 1 tablet by mouth daily 21/06/28 LEVOFLOXACIN 58712785838 No Longer Active Bertrand Patel DO Active PREDNISONE 20 MG ORAL TABLET Take 3 tabs for 3 days, t hen 2 tabs for 3 days, then 1 tab for 3 days PREDNISONE 24743466542 No Rainer fatou Active Galilea Sell LAW ENFORCEMENT OFFICER Active DOXYCYCLINE HYCLATE 100 MG ORAL CAPSULE 1 cap by mouth twice jong ly DOXYCYCLINE HYCLATE 22006547400 No Longer Active Galilea Sell LAW ENFORCEMENT OFFICER Active ADDERALL 10 MG ORAL TABLET 1 tab twice daily 2 AMPHETAMINE-DEXTROAMPHETAMINE 86803248943 No Longer Active Nitza Phi llips Scribe Active ZITHROMAX Z-MARTIN 250 MG ORAL TABLET 2 today and then 1 daily for 4 days AZITHROMYCIN 82777289110 No Longer Active Nitza Osman lips Scribe Active BENZONATATE 200 MG ORAL CAPSULE 1 three times a day as neede d for cough BENZONATATE 77439104000 No Longer Active Nitza Osman lips Scribe Active VITAMIN D3 78548 UNIT ORAL CAPSULE 1 pill Week x 4 mo nths for vitamin D deficiency/osteoporosis CHOLECALCIFEROL 41797006892 N o Longer Active Layla Garcia Active BACTROBAN 2 % EXTERNAL CREAM Apply to affected area BID for up to 10 days MUPIROCIN CALCIUM 72504811386 No Longer Active Ike Deluna MD Active CIPRO 500 MG ORAL TABLET 1 tablet by mouth twice daily CIPROFLOXACIN HCL 76563572915 No Longer Active Adriana Bender LPN Active AUGMENTIN 875-125 MG ORAL TABLET 1 po BID x 10 days 18/04/06 AMOXICILLIN-POT CLAVULANATE 20718071897 No Longer Active Adriana Bender LPN Active CYCLOBENZAPRINE HCL 10 MG ORAL TABLET Take 1 tab TID PRN for mus triston pain CYCLOBENZAPRINE HCL 86091104528 No Longer Active Bertrand Patel DO Active TESSALON PERLES 100 MG ORAL CAPSULE 1 tablet by mouth 3 times da juan pablo BENZONATATE 44195583173 No Longer Active Bertrand Patel DO Ac tive NEBULIZER use as directed NEBULIZERS 55800746253 No Longer Active Bertarnd Patel DO Active ALBUTEROL SULFATE (2.5 MG/3ML) 0.083% INHALATION NEBUL IZATION SOLUTION one vial per nebulizer every 4-6 hours as needed ALBUTERO L SULFATE 60654540743 No Longer Active Bertrand Patel DO Active SYMBICORT 160-4.5 MCG/ACT INHALATION AEROSOL 2 puffs BID 9 BUDESONIDE-FORMOTEROL FUMARATE 51505119655 No Longer Active Bertrand Patel DO Active PREDNISONE 20 MG ORAL TABLET take 3 tabs daily for 3 d ays, 2 tabs daily for 3 days, 1 tab daily for 3 days, 1/2 tab daily for 3 days 08/02 PREDNISONE 00712162356 No Longer Active Silvia Vazquez APRN Active AZITHROMYCIN 250 MG ORAL TABLET Take 2 tabs po today then 1 tab po daily AZITHROMYCIN 04511742930 No Longer Active Silvia Vazquez APRN Active AUGMENTIN 875-125 MG ORAL TABLET 1 po BID x 10 days 19/07/13 AMOXICILLIN-POT CLAVULANATE 03599329349 No Longer Active Adriana Bender AMERICAN HISTORY PROFESSOR Active CHEWABLE CALCIUM 500-200-40 MG-UNT-MCG ORAL TABLET CHEWABLE 1 chew tab bid CALCIUM-VITAMIN D-VITAMIN K 51057296532 Active Silvia Are ll LAW ENFORCEMENT OFFICER Active EQ COMPLETE MULTIVIT ADULT 50+ ORAL TABLET 1 tab po bid MULTIPLE VITAMINS-MINERALS 84505201486 Active Silvia Arell LAW ENFORCEMENT OFFICER Active LORTAB 7.5-500 MG ORAL TABLET take one po Q6 hours 201 09/12/01 HYDROCODONE-ACETAMINOPHEN 83733900940 No Longer Active Nirmal Robbins RN Active [facility] MELATONIN 5-10 MG ORAL TABLET EXTENDED RELEASE Jair e one by mouth daily at bedtime MELATONIN-PYRIDOXINE 49759594296 No Longer Acti ve Bertrand Patel DO Active VITAMIN E 200 UNIT ORAL CAPSULE 1 cap po qd VITAM IN E 03694458617 No Longer Active Bertrand Patel DO Active B-12 1000 MCG ORAL CAPSULE 1 tab daily CYANOCOB ALAMIN 17573913855 No Longer Active Bertrand Patel DO Active METFORMIN HCL 500 MG ORAL TABLET 1 bid METFOR MIN HCL 75107214538 No Longer Active Bertrand Patel DO Active FUROSEMIDE 20 MG ORAL TABLET 1 pill by mouth daily if needed for edema FUROSEMIDE 52997257385 No Longer Active Bertrand Patel DO Active PRAVASTATIN SODIUM 20 MG ORAL TABLET 1 tablet by mouth daily at bedtime PRAVASTATIN SODIUM 71634387831 No Longer Active Bertrand Patel DO Active AUGMENTIN 875-125 MG ORAL TABLET 1 pill by mouth twice daily 201 09/10/00 AMOXICILLIN-POT CLAVULANATE 42816426624 No Longer Active Yoli Mercado MD PhD Active LEVAQUIN 500 MG ORAL TABLET 1 pill by mouth daily 2013 LEVOFLOXACIN 37395361263 No Longer Active Yoli Mercado MD PhD Acti ve AMLODIPINE BESYLATE 5 MG ORAL TABLET 1 tablet by mouth daily for blood pressure AMLODIPINE BESYLATE 48694967823 Active Bertrand Patel DO Active MICARDIS 80 MG ORAL TABLET 1 tablet daily for blood pressure 07/30 TELMISARTAN 10749046942 Active Bertrand Patel DO Active MICARDIS HCT 80-12.5 MG ORAL TABLET 1 qd TELMISARTAN-HCTZ 17563657117 No Longer Active Bertrand Patel DO Active CINNAMON ALPHA LIPOIC AC CMPLX CAPSULE by mouth twice a day in AM by mouth twice a day in PM ALPHA LIPOIC [id number] CA PS 37994366478 No Longer Active Bertrand Patel DO Active AZITHROMYCIN 500 MG INTRAVENOUS SOLUTION RECONSTITUTED 1 po q da y AZITHROMYCIN 52399512240 No Longer Active Bertrand Patel DO A ctive CYMBALTA 30 MG ORAL CAPSULE DELAYED RELEASE PARTICLES 1 cap by mouth daily DULOXETINE HCL 19450442945 No Longer Active Bertrand marquez DO Active CYMBALTA 60 MG ORAL CAPSULE DELAYED RELEASE PARTICLES 1 cap by mouth daily DULOXETINE HCL 71808945937 Active Bertrand Patel DO Active WELLBUTRIN 75 MG ORAL TABLET 2 times daily BUPR OPION HCL 95934346801 No Longer Active Bertrand Patel DO Active PROAIR HFA 108 (90 Base) MCG/ACT INHALATION AEROSOL SO LUTION take one to two puffs po Q4-6 hour prn cough and shortness of breath ALBUTEROL SULFATE 67803745113 Active Bertrand Patel DO Active AZITHROMYCIN 250 MG ORAL TABLET take 2 po today then take 1 po days 2-5 AZITHROMYCIN 72699975502 No Longer Active Adolfo OSORIO Active PERMETHRIN 5 % EXTERNAL CREAM apply neck to toes tonig ht and then rinse off in morning. repeat at 7 days PERMETHRIN 04785085491 No Longer Active Adolfo OSORIO Active AMOXICILLIN 500 MG ORAL CAPSULE 2 po BID x 10 days 201 07/15/00 AMOXICILLIN 31844312957 No Longer Active Yoli Mercado MD PhD Acti ve INSUPEN ULTRAFIN 31G X 6 MM USE DIRECTED INSULIN PEN NEEDLE 42341691580 No Longer Active Bertrand W Jorge DO Active TRANSDERM-SCOP (1.5 MG) 1 MG/3DAYS TRANSDERMAL PATCH 7 2 HOUR 1 patch applied behind ear q 3 day SCOPOLAMINE BASE 60578374720 No Lo nger Active Bertrand Patel DO Active MACRODANTIN 100 MG ORAL CAPSULE one p.o. b.i.d. x2 weeks NITROFURANTOIN MACROCRYSTAL 18107622621 No Longer Active Bertrand Patel DO Active MACRODANTIN 100 MG ORAL CAPSULE one p.o. b.i.d. x2 weeks MACRODANTIN 100 MG ORAL CAPSULE 9416313 NITROFURANTOIN MACROCRYSTAL Inactive TRANSDERM-SCOP (1.5 MG) 1 [...] days PERMETHRIN 5 % EXTER NAL CREAM 248109 PERMETHRIN Inactive WELLBUTRIN 75 MG ORAL TABLET 2 times daily WELLBUTRIN 75 MG ORAL TABLET BUPROPION HCL Inactive CYMBALTA 30 MG ORAL CAPSULE DELAYED RELEASE PARTICLES 1 cap by mouth daily CYMBALTA 30 MG ORAL CAPSULE DELAYED RELE ASE PARTICLES 950787 DULOXETINE HCL Inactive AZITHROMYCIN 500 MG INTRAVENOUS SOLUTION RECONSTITUTED 1 po q da y AZITHROMYCIN 500 MG INTRAVENOUS SOLUTION RECONSTITUTED 54594 323210 AZITHROMYCIN Inactive CINNAMON ALPHA LIPOIC AC CMPLX CAPSULE by mouth twice a day in AM by mouth twice a day in PM CINNAMON ALPHA LIPOIC AC CMPLX CAPSULE ALPHA LIPOIC [id number] CAPS Inactive MICARDIS HCT 80-12.5 MG ORAL TABLET 1 qd 07/30 MICARDIS HCT 80-12.5 MG ORAL TABLET 748799 TELMISARTAN-HCTZ Inactive PRAVASTATIN SODIUM 20 MG ORAL TABLET 1 tablet by mouth daily at bedtime PRAVASTATIN SODIUM 20 MG ORAL TABLET 062967 PRAVASTATIN SODIUM Inactive FUROSEMIDE 20 MG ORAL TABLET 1 pill by mouth daily if needed for edema FUROSEMIDE 20 MG ORAL TABLET 206028 FUROSEMIDE Inactive METFORMIN HCL 500 MG ORAL TABLET 1 bid METFORMIN HCL 500 MG ORAL TABLET 548863 METFORMIN HCL Inactive B-12 1000 MCG ORAL CAPSULE 1 tab daily B -12 1000 MCG ORAL CAPSULE CYANOCOBALAMIN Inactive VITAMIN E 200 UNIT ORAL CAPSULE 1 cap po qd 1 VITAMIN E 200 UNIT ORAL CAPSULE 9461462 VITAMIN E Inactive [facility] MELATONIN 5-10 MG [...] po daily AZITHROMYCIN 250 MG ORAL TABLET 921952 AZITHROMY BERNARDO Inactive SYMBICORT 160-4.5 MCG/ACT INHALATION AEROSOL 2 puffs BID 9 SYMBICORT 160-4.5 MCG/ACT INHALATION AEROSOL BUDESONIDE-FORM OTEROL FUMARATE Inactive ALBUTEROL SULFATE (2.5 MG/3ML) 0.083% INHALATION NEBUL IZATION SOLUTION one vial per nebulizer every 4-6 hours as needed ALBUTEROL SULFATE (2.5 MG/3ML) 0.083% INHALATION NEBULIZATION SOLUTION 462497 ALBUTER OL SULFATE Inactive NEBULIZER use as directed NEBULIZER NEBULI ZERS Inactive TESSALON PERLES 100 MG ORAL CAPSULE 1 tablet by mouth 3 times da juan pablo TESSALON PERLES 100 MG ORAL CAPSULE 352263 BENZONATATE Inactive CYCLOBENZAPRINE HCL 10 MG ORAL TABLET Take 1 tab TID PRN for mus triston pain CYCLOBENZAPRINE HCL 10 MG ORAL TABLET 795102 CYCLOBENZA ANUJA HCL Inactive AUGMENTIN 875-125 MG ORAL TABLET 1 po BID x 10 days 20 18/04/06 AUGMENTIN 875-125 MG ORAL TABLET AMOXICILLIN-POT CLAVULANATE Inactive BACTROBAN 2 % EXTERNAL CREAM Apply to affected area BID for up to 10 days BACTROBAN 2 % EXTERNAL CREAM MUPIROCIN CA LCIUM Inactive VITAMIN D3 35821 UNIT ORAL CAPSULE 1 pill Week x 4 mo nths for vitamin D deficiency/osteoporosis VITAMIN D3 96936 UNIT ORAL CAPSULE CHOLECALCIFEROL Inactive BENZONATATE 200 MG ORAL CAPSULE 1 three times a day as neede d for cough BENZONATATE 200 MG ORAL CAPSULE 270074 BENZONATA TE Inactive ZITHROMAX Z-MARTIN 250 MG ORAL TABLET 2 today and then 1 daily for 4 days ZITHROMAX Z-MARTIN 250 MG ORAL TABLET 112131 AZITHR OMYCIN Inactive ADDERALL 10 MG ORAL TABLET 1 tab twice daily 2 ADDERALL 10 MG ORAL TABLET 968419 AMPHETAMINE-DEXTROAMPHETAMINE Inactive LEVAQUIN 500 MG ORAL TABLET 1 tablet by mouth daily 20 21/06/28 LEVAQUIN 500 MG ORAL TABLET 062375 LEVOFLOXACIN Inactive AMOXICILLIN 500 MG ORAL CAPSULE 2 po BID x 10 days 201 07/15/00 AMOXICILLIN 500 MG ORAL CAPSULE 401353 AMOXICILLIN Inactive AZITHROMYCIN 250 MG ORAL TABLET take 2 po today then take 1 po days 2-5 AZITHROMYCIN 250 MG ORAL TABLET 615901 AZITHROMY BERNARDO Inactive LEVAQUIN 500 MG ORAL TABLET 1 pill by mouth daily 2013 LEVAQUIN 500 MG ORAL TABLET 990749 LEVOFLOXACIN Inactive AUGMENTIN 875-125 MG ORAL TABLET [...] days 08/02 PREDNISONE 20 MG ORAL TABLET 834378 PREDNISONE Inactive CIPRO 500 MG ORAL TABLET 1 tablet by mouth twice daily CIPRO 500 MG ORAL TABLET 369384 CIPROFLOXACIN HCL Inactive DOXYCYCLINE HYCLATE 100 MG ORAL CAPSULE 1 cap by mouth twice jong ly DOXYCYCLINE HYCLATE 100 MG ORAL CAPSULE 9524244 DOXYCYCL INE HYCLATE Inactive PREDNISONE 20 MG [...] d Encounters Code Encounter Date Provider Facility [id number] Vst-Est Level IV 14:46:36 BARREL RIBS SOLDERER Foster Patel [facility]-37339 Level 3 Est. Patient 12:37:30 BARREL RI[employer] SOLDERER Galilea Se [facility] CPT-37881 Level 3 Est. Patient 11:40:23 CDT Bertrand marquez [facility]-38177 Level 4 Est. Patient 15:33:35 BARREL RIBS SOLDERER Bertrand marquez [facility] CPT-04812 Level 4 Est. Patient 12:31:54 CDT Bertrand marquez [facility]-44217 Level 3 Est. Patient 11:27:00 BARREL RIBS SOLDERER Ike Deluna MD [facility]-99243 Level 3 Est. Patient 08:50:57 BARREL RIBS SOLDERER Silvia Are ll [facility] CPT-17928 Level 3 Est. Patient 10:04:13 CDT Bertrand marquez [facility] CPT-27741 Level 4 Est. Patient 16:02:10 BARREL RIBS SOLDERER Silvia Are [facility] CPT-22519 Level 3 Est. Patient 13:04:54 BARREL RIBS SOLDERER Silvia Are [facility] CPT-28715 Level 3 Est. Patient 12:56:37 CDT Bertrand marquez [facility] CPT-23347 Level 3 Est. Patient 19:12:03 CDT Yoli otlbert MD PhD [facility] [place]-44770 Level 3 Est. Patient 14:36:01 CDT Yoli tolbert MD PhD [facility]-37849 Level 2 Est. Patient 08:00:22 CDT Jcarlos dc MD [facility]-61846 Level 3 Est. Patient 19:06:55 CDT Bertrand marquez [facility] CPT-89612 Level 3 Est. Patient 10:08:23 BARREL RIBS SOLDERER Bertrand marquez [facility] CPT-28001 Level 3 Est. Patient 16:37:54 BARREL RIBS SOLDERER Bertrand marquez [facility] CPT-59082 Level 3 Est. Patient 11:31:59 BARREL RIBS SOLDERER Bertrand marquez [facility] CPT-04409 Level 3 Est. Patient 10:20:08 CDT Adolfo villasenor [facility] CPT-98692 Level 3 Est. Patient 13:45:20 CDT Sanket buckley [facility] CPT-98088 Level 3 Est. Patient 12:51:06 CDT Adolfo villasenor [facility] CPT-62456 Level 3 Est. Patient 11:22:51 BARREL RIBS SOLDERER Yoli tolbert MD [facility] CPT-60555 Level 3 Est. Patient 13:33:19 CDT Bertrand marquez [facility] Procedures Code Procedure Name Date Entry Date Standard Desc ription CPT-51462 Wound Culture - LAB USE ONLY 15:45:25 CDT 2 CPT-49010 Venipuncture Draw Fee 10:23:01 CDT CPT-J0696 Rocephin 1000 mg (Ceftriaxone) 16:20:30 BARREL [employer] CPT-90663 Abx/Therapy Injection 16:20:29 BARREL RI[employer] SOLDERER CPT-J0696 Rocephin 1gm Inj Solr 15:51:59 BARREL RI[employer] SOLDERER CPT-14914 Chest 2V Frontal and Lat 15:20:28 BARREL [employer] SOLDERER 07/22 CPT-48460 Breathing Tx 14:51:55 [employer]REL [employer]ER CPT-73808 Breathing Tx 09:57:16 [employer]REL [employer] CPT-51375 Knee comp 4/> V 11:58:06 BARREL [employer]ER
--- OUTSIDE RECORDS SUMMARY | 2019-11-13 09:52 | XMS REPORT | Clinical Summary ---
Author Author Admin, Enrique Adamson Organization [employer] Address Unknown Phone Unavailable Allergies, Adverse Reactions, [...] PAIN, RIGHT ICD-719.46 Inactive Adele Vau ghn PRESCRIPTION CLERK Knee pain, left ICD-719.46 Inactive Adele Vaug hn PRESCRIPTION CLERK Pharyngitis-Acute ICD-462 Inactive Bertrand Redmond DO Polyuria ICD-788.42 Inactive Yoli Mercado MD P Cellulitis, leg, right ICD-682.6 Inactive Yuki Deluna MD Foreign body, ear ICD-931 Inactive Yoli salazar MD PhD Fatigue ICD-780.79 Inactive Ike Deluna MD 201 12/01/06 Headache ICD-784.0 Inactive Adele Feldman PRESCRIPTION CLERK 2017 Cough ICD-786.2 Inactive Adele Feldman PRESCRIPTION CLERK 06/04 SINUSITIS, ACUTE ICD-461.9 Inactive Ike lange MD Fatigue ICD-780.79 Inactive Adele Feldman PRESCRIPTION CLERK 2017 Bronchitis acute with bronchospasm ICD-466.0 I nactive Bertrand Patel DO Animal bite ICD-919.8 Inactive Adele Feldman LP N Mycoplasma infection ICD-041.81 Inactive Anit a Feldman PRESCRIPTION CLERK Amenorrhea, secondary ICD-626.0 Inactive Ani ta Feldman PRESCRIPTION CLERK Left maxillary sinusitis ICD-473.0 Inactive Bertrand Patel DO Medication List Medication Instructions Start Date Stop Date Generic Name NDC Status Provider Patient Instruction EVENING PRIMROSE OIL 1000 MG ORAL CAPSULE 1 capsule once daily EVENING PRIMROSE OIL 83038017785 Active Bertrand Patel DO Active LEVAQUIN 500 MG ORAL TABLET 1 tablet by mouth daily 21/06/28 LEVOFLOXACIN 53062366450 No Longer Active Bertrand Patel DO Active PREDNISONE 20 MG ORAL TABLET Take 3 tabs for 3 days, t hen 2 tabs for 3 days, then 1 tab for 3 days PREDNISONE 40622348542 No Rainer fatou Active Galilea Sell TIE MAKER Active DOXYCYCLINE HYCLATE 100 MG ORAL CAPSULE 1 cap by mouth twice jong ly DOXYCYCLINE HYCLATE 51115182869 No Longer Active Galilea Sell TIE MAKER Active ADDERALL 10 MG ORAL TABLET 1 tab twice daily 2 AMPHETAMINE-DEXTROAMPHETAMINE 51457572660 No Longer Active Nitza Phi llips Scribe Active ZITHROMAX Z-MARTIN 250 MG ORAL TABLET 2 today and then 1 daily for 4 days AZITHROMYCIN 32379480599 No Longer Active Nitza Osman lips Scribe Active BENZONATATE 200 MG ORAL CAPSULE 1 three times a day as neede d for cough BENZONATATE 15376553543 No Longer Active Nitza Osman lips Scribe Active VITAMIN D3 67999 UNIT ORAL CAPSULE 1 pill Week x 4 mo nths for vitamin D deficiency/osteoporosis CHOLECALCIFEROL 98152064304 N o Longer Active Layla Garcia Active BACTROBAN 2 % EXTERNAL CREAM Apply to affected area BID for up to 10 days MUPIROCIN CALCIUM 17155015069 No Longer Active Ike Deluna MD Active CIPRO 500 MG ORAL TABLET 1 tablet by mouth twice daily CIPROFLOXACIN HCL 87033309672 No Longer Active Adriana Bender LPN Active AUGMENTIN 875-125 MG ORAL TABLET 1 po BID x 10 days 18/04/06 AMOXICILLIN-POT CLAVULANATE 78290899965 No Longer Active Adriana Bender LPN Active MODAFINIL 200 MG ORAL TABLET Take 1/2 tab po in the am and 1 /2 tab po at noon MODAFINIL 32832356899 Active Bertrand Patel DO Ac tive CYCLOBENZAPRINE HCL 10 MG ORAL TABLET Take 1 tab TID PRN for mus triston pain CYCLOBENZAPRINE HCL 53416556838 No Longer Active Bertrand Patel DO Active TESSALON PERLES 100 MG ORAL CAPSULE 1 tablet by mouth 3 times da juan pablo BENZONATATE 40365007427 No Longer Active Bertrand Patel DO Ac tive NEBULIZER use as directed NEBULIZERS 29448001889 No Longer Active Bertrand Patel DO Active ALBUTEROL SULFATE (2.5 MG/3ML) 0.083% INHALATION NEBUL IZATION SOLUTION one vial per nebulizer every 4-6 hours as needed ALBUTERO L SULFATE 46241700835 No Longer Active Bertrand Patel DO Active SYMBICORT 160-4.5 MCG/ACT INHALATION AEROSOL 2 puffs BID 9 BUDESONIDE-FORMOTEROL FUMARATE 53819407529 No Longer Active Bertrand Patel DO Active PREDNISONE 20 MG ORAL TABLET take 3 tabs daily for 3 d ays, 2 tabs daily for 3 days, 1 tab daily for 3 days, 1/2 tab daily for 3 days 08/02 PREDNISONE 68667898005 No Longer Active Silvia Arell TIE MAKER Active AZITHROMYCIN 250 MG ORAL TABLET Take 2 tabs po today then 1 tab po daily AZITHROMYCIN 99451138343 No Longer Active Silvia Arell TIE MAKER Active AUGMENTIN 875-125 MG ORAL TABLET 1 po BID x 10 days 20 19/07/13 AMOXICILLIN-POT CLAVULANATE 97772434637 No Longer Active Adriana Bender PRESCRIPTION CLERK Active CHEWABLE CALCIUM 500-200-40 MG-UNT-MCG ORAL TABLET CHEWABLE 1 chew tab bid CALCIUM-VITAMIN D-VITAMIN K 90361040731 Active Silvia Are ll TIE MAKER Active EQ COMPLETE MULTIVIT ADULT 50+ ORAL TABLET 1 tab po bid MULTIPLE VITAMINS-MINERALS 32056578334 Active Silvia Arell TIE MAKER Active HYDROCODONE-ACETAMINOPHEN 7.5-325 MG ORAL TABLET TAKE ONE TAB EVERY 6 HOURS BY MOUTH NEEDED FOR PAIN HYDROCODONE-ACETAMINOPHEN 004 22596534 Active Bertrand Patel DO Active LORTAB 7.5-500 MG ORAL TABLET take one po Q6 hours 201 09/12/01 HYDROCODONE-ACETAMINOPHEN 21654656677 No Longer Active Nirmal Robbins RN Active [facility] MELATONIN 5-10 MG ORAL TABLET EXTENDED RELEASE Jair e one by mouth daily at bedtime MELATONIN-PYRIDOXINE 86080913706 No Longer Acti ve Bertrand Patel DO Active VITAMIN E 200 UNIT ORAL CAPSULE 1 cap po qd VITAM IN E 34911687154 No Longer Active Bertrand Patel DO Active B-12 1000 MCG ORAL CAPSULE 1 tab daily CYANOCOB ALAMIN 35314823777 No Longer Active Bertrand Patel DO Active METFORMIN HCL 500 MG ORAL TABLET 1 bid METFOR MIN HCL 00506675045 No Longer Active Bertrand Patel DO Active FUROSEMIDE 20 MG ORAL TABLET 1 pill by mouth daily if needed for edema FUROSEMIDE 30766848203 No Longer Active Bertrand Patel DO Active PRAVASTATIN SODIUM 20 MG ORAL TABLET 1 tablet by mouth daily at bedtime PRAVASTATIN SODIUM 46839784128 No Longer Active Bertrand Patel DO Active AUGMENTIN 875-125 MG ORAL TABLET 1 pill by mouth twice daily 201 09/10/00 AMOXICILLIN-POT CLAVULANATE 40060602266 No Longer Active Yoli Mercado MD PhD Active LEVAQUIN 500 MG ORAL TABLET 1 pill by mouth daily 2013 LEVOFLOXACIN 21950531728 No Longer Active Yoli Mercado MD PhD Acti ve AMLODIPINE BESYLATE 5 MG ORAL TABLET 1 tablet by mouth daily for blood pressure AMLODIPINE BESYLATE 57435256821 Active Bertrand Patel DO Active MICARDIS 80 MG ORAL TABLET 1 tablet daily for blood pressure 07/30 TELMISARTAN 54985010704 Active Bertrand Patel DO Active MICARDIS HCT 80-12.5 MG ORAL TABLET 1 qd TELMISARTAN-HCTZ 34539324651 No Longer Active Bertrand Patel DO Active CINNAMON ALPHA LIPOIC AC CMPLX CAPSULE by mouth twice a day in AM by mouth twice a day in PM ALPHA LIPOIC PLLI-[id number]-[id number] CA PS 48190758119 No Longer Active Bertrand Patel DO Active AZITHROMYCIN 500 MG INTRAVENOUS SOLUTION RECONSTITUTED 1 po q da y AZITHROMYCIN 03784160589 No Longer Active Bertrand Patel DO A ctive CYMBALTA 30 MG ORAL CAPSULE DELAYED RELEASE PARTICLES 1 cap by mouth daily DULOXETINE HCL 39807859527 No Longer Active eBrtrand marquez DO Active CYMBALTA 60 MG ORAL CAPSULE DELAYED RELEASE PARTICLES 1 cap by mouth daily DULOXETINE HCL 45693680913 Active Bertrand Patel DO Active WELLBUTRIN 75 MG ORAL TABLET 2 times daily BUPR OPION HCL 06459397545 No Longer Active Bertrand Patel DO Active PROAIR HFA 108 (90 Base) MCG/ACT INHALATION AEROSOL SO LUTION take one to two puffs po Q4-6 hour prn cough and shortness of breath ALBUTEROL SULFATE 60520763181 Active Bertrand Patel DO Active AZITHROMYCIN 250 MG ORAL TABLET take 2 po today then take 1 po days 2-5 AZITHROMYCIN 56758823788 No Longer Active Adolfo OSORIO Active PERMETHRIN 5 % EXTERNAL CREAM apply neck to toes tonig ht and then rinse off in morning. repeat at 7 days PERMETHRIN 83862982456 No Longer Active Adolfo OSORIO Active AMOXICILLIN 500 MG ORAL CAPSULE 2 po BID x 10 days 201 07/15/00 AMOXICILLIN 46683898200 No Longer Active Yoli Mercado MD PhD Acti ve ALPRAZOLAM 0.5 MG ORAL TABLET 1 tab by mouth tid ALPRAZOLAM 60324612006 Active Bertrand Patel DO Active INSUPEN ULTRAFIN 31G X 6 MM USE DIRECTED INSULIN PEN NEEDLE 23123136950 No Longer Active Bertrand Patel DO Active TRANSDERM-SCOP (1.5 MG) 1 MG/3DAYS TRANSDERMAL PATCH 7 2 HOUR 1 patch applied behind ear q 3 day SCOPOLAMINE BASE 85372920743 No Lo nger Active Bertrand Villasenor Jorge BROWN Active MACRODANTIN 100 MG ORAL CAPSULE one p.o. b.i.d. x2 weeks NITROFURANTOIN MACROCRYSTAL 93360294300 No Longer Active Bertrand Patel DO Active MACRODANTIN 100 MG ORAL CAPSULE one p.o. b.i.d. x2 weeks MACRODANTIN 100 MG ORAL CAPSULE 5026318 NITROFURANTOIN MACROCRYSTAL Inactive TRANSDERM-SCOP (1.5 MG) 1 [...] days PERMETHRIN 5 % EXTER NAL CREAM 449388 PERMETHRIN Inactive WELLBUTRIN 75 MG ORAL TABLET 2 times daily WELLBUTRIN 75 MG ORAL TABLET BUPROPION HCL Inactive CYMBALTA 30 MG ORAL CAPSULE DELAYED RELEASE PARTICLES 1 cap by mouth daily CYMBALTA 30 MG ORAL CAPSULE DELAYED RELE ASE PARTICLES 607985 DULOXETINE HCL Inactive AZITHROMYCIN 500 MG INTRAVENOUS SOLUTION RECONSTITUTED 1 po q da y AZITHROMYCIN 500 MG INTRAVENOUS SOLUTION RECONSTITUTED 06571 998267 AZITHROMYCIN Inactive CINNAMON ALPHA LIPOIC AC CMPLX CAPSULE by mouth twice a day in AM by mouth twice a day in PM CINNAMON ALPHA LIPOIC AC CMPLX CAPSULE ALPHA LIPOIC [id number] CAPS Inactive MICARDIS HCT 80-12.5 MG ORAL TABLET 1 qd 07/30 MICARDIS HCT 80-12.5 MG ORAL TABLET 543557 TELMISARTAN-HCTZ Inactive PRAVASTATIN SODIUM 20 MG ORAL TABLET 1 tablet by mouth daily at bedtime PRAVASTATIN SODIUM 20 MG ORAL TABLET 786151 PRAVASTATIN SODIUM Inactive FUROSEMIDE 20 MG ORAL TABLET 1 pill by mouth daily if needed for edema FUROSEMIDE 20 MG ORAL TABLET 461821 FUROSEMIDE Inactive METFORMIN HCL 500 MG ORAL TABLET 1 bid METFORMIN HCL 500 MG ORAL TABLET 311148 METFORMIN HCL Inactive B-12 1000 MCG ORAL CAPSULE 1 tab daily B -12 1000 MCG ORAL CAPSULE CYANOCOBALAMIN Inactive VITAMIN E 200 UNIT ORAL CAPSULE 1 cap po qd 1 VITAMIN E 200 UNIT ORAL CAPSULE 2389614 VITAMIN E Inactive [facility] MELATONIN 5-10 MG [...] po daily AZITHROMYCIN 250 MG ORAL TABLET 579086 AZITHROMY BERNARDO Inactive SYMBICORT 160-4.5 MCG/ACT INHALATION AEROSOL 2 puffs BID 9 SYMBICORT 160-4.5 MCG/ACT INHALATION AEROSOL BUDESONIDE-FORM OTEROL FUMARATE Inactive ALBUTEROL SULFATE (2.5 MG/3ML) 0.083% INHALATION NEBUL IZATION SOLUTION one vial per nebulizer every 4-6 hours as needed ALBUTEROL SULFATE (2.5 MG/3ML) 0.083% INHALATION NEBULIZATION SOLUTION 483343 ALBUTER OL SULFATE Inactive NEBULIZER use as directed NEBULIZER NEBULI ZERS Inactive TESSALON PERLES 100 MG ORAL CAPSULE 1 tablet by mouth 3 times da juan pablo TESSALON PERLES 100 MG ORAL CAPSULE 320022 BENZONATATE Inactive CYCLOBENZAPRINE HCL 10 MG ORAL TABLET Take 1 tab TID PRN for mus triston pain CYCLOBENZAPRINE HCL 10 MG ORAL TABLET 426881 CYCLOBENZA ANUJA HCL Inactive AUGMENTIN 875-125 MG ORAL TABLET 1 po BID x 10 days 20 18/04/06 AUGMENTIN 875-125 MG ORAL TABLET AMOXICILLIN-POT CLAVULANATE Inactive BACTROBAN 2 % EXTERNAL CREAM Apply to affected area BID for up to 10 days BACTROBAN 2 % EXTERNAL CREAM MUPIROCIN CA LCIUM Inactive VITAMIN D3 81574 UNIT ORAL CAPSULE 1 pill Week x 4 mo nths for vitamin D deficiency/osteoporosis VITAMIN D3 51601 UNIT ORAL CAPSULE CHOLECALCIFEROL Inactive BENZONATATE 200 MG ORAL CAPSULE 1 three times a day as neede d for cough BENZONATATE 200 MG ORAL CAPSULE 264702 BENZONATA TE Inactive ZITHROMAX Z-MARTIN 250 MG ORAL TABLET 2 today and then 1 daily for 4 days ZITHROMAX Z-MARTIN 250 MG ORAL TABLET 871175 AZITHR OMYCIN Inactive ADDERALL 10 MG ORAL TABLET 1 tab twice daily 2 ADDERALL 10 MG ORAL TABLET 258362 AMPHETAMINE-DEXTROAMPHETAMINE Inactive LEVAQUIN 500 MG ORAL TABLET 1 tablet by mouth daily 20 21/06/28 LEVAQUIN 500 MG ORAL TABLET 037429 LEVOFLOXACIN Inactive AMOXICILLIN 500 MG ORAL CAPSULE 2 po BID x 10 days 201 07/15/00 AMOXICILLIN 500 MG ORAL CAPSULE 691738 AMOXICILLIN Inactive AZITHROMYCIN 250 MG ORAL TABLET take 2 po today then take 1 po days 2-5 AZITHROMYCIN 250 MG ORAL TABLET 670807 AZITHROMY BERNARDO Inactive LEVAQUIN 500 MG ORAL TABLET 1 pill by mouth daily 2013 LEVAQUIN 500 MG ORAL TABLET 191176 LEVOFLOXACIN Inactive AUGMENTIN 875-125 MG ORAL TABLET [...] days 08/02 PREDNISONE 20 MG ORAL TABLET 433789 PREDNISONE Inactive CIPRO 500 MG ORAL TABLET 1 tablet by mouth twice daily CIPRO 500 MG ORAL TABLET 315126 CIPROFLOXACIN HCL Inactive DOXYCYCLINE HYCLATE 100 MG ORAL CAPSULE 1 cap by mouth twice jong ly DOXYCYCLINE HYCLATE 100 MG ORAL CAPSULE 4032673 DOXYCYCL INE HYCLATE Inactive PREDNISONE 20 MG [...] d Encounters Code Encounter Date Provider Facility CPT-63972 11036-[id number] Vst-Est Level IV 14:46:36 BAR STEWARD [employer] Jacklyn Jorge [facility]-79504 Level 3 Est. Patient 12:37:30 BAR STEWARD Galilea Se [facility]-15480 Level 3 Est. Patient 11:40:23 CDT Bertrand marquez [facility]-88470 Level 4 Est. Patient 15:33:35 BAR STEWARD Bertrand marquez [facility]-20847 Level 4 Est. Patient 12:31:54 CDT Bertrand marquez [facility]-83171 Level 3 Est. Patient 11:27:00 BAR STEWARD Ike Deluna MD [facility]-43196 Level 3 Est. Patient 08:50:57 BAR STEWARD Silvia Are ll [facility]-63335 Level 3 Est. Patient 10:04:13 CDT Bertrand marquez [facility]-59489 Level 4 Est. Patient 16:02:10 BAR STEWARD Silvia Are ll [facility]-12321 Level 3 Est. Patient 13:04:54 BAR STEWARD Silvia Are [facility]-93363 Level 3 Est. Patient 12:56:37 CDT Bertrand marquez [facility]-96218 Level 3 Est. Patient 19:12:03 CDT Yoli tolbert MD PhD [facility]-02899 Level 3 Est. Patient 14:36:01 CDT Yoli tolbert MD PhD [facility]-89576 Level 2 Est. Patient 08:00:22 CDT Jcarlos dc MD [facility]03189 Level 3 Est. Patient 19:06:55 CDT Bertrand marquez [facility]-76042 Level 3 Est. Patient 10:08:23 BAR STEWARD Bertrand Villasenor [place] marquez [facility] CPT-51539 Level 3 Est. Patient 16:37:54 BAR STEWARD Bertrand Sabillon jimmy [facility] CPT-91489 Level 3 Est. Patient 11:31:59 BAR STEWARD Bertrand Sabillon jimmy [facility] CPT-54981 Level 3 Est. Patient 10:20:08 CDT Adolfo Monroyridge halljacklyn [facility] CPT-65424 Level 3 Est. Patient 13:45:20 CDT Sanket Garciakelvin buckley [facility] CPT-36022 Level 3 Est. Patient 12:51:06 CDT Gennadot Monroyridge jacklyn [facility] CPT-75036 Level 3 Est. Patient 11:22:51 BAR STEWARD Yoli tolbert MD [facility] CPT-00937 Level 3 Est. Patient 13:33:19 CDT Bertrand marquez [facility] Procedures Code Procedure Name Date Entry Date Standard Desc ription CPT-27970 Wound Culture - LAB USE ONLY 15:45:25 CDT 2 CPT-50456 Venipuncture Draw Fee 10:23:01 CDT CPT-J0696 Rocephin 1000 mg (Ceftriaxone) 16:20:30 BAR STEWARD CPT-92431 Abx/Therapy Injection 16:20:29 BAR STEWARD CPT-J0696 Rocephin 1gm Inj Solr 15:51:59 BAR STEWARD CPT-64721 Chest 2V Frontal and Lat 15:20:28 BAR STEWARD 07/22 CPT-13089 Breathing Tx 14:51:55 BAR STEWARD CPT-94244 Breathing Tx 09:57:16 BAR STEWARD CPT-14703 Knee comp 4/> V 11:58:06 BAR STEWARD
--- OUTSIDE RECORDS SUMMARY | 2019-11-13 09:52 | XMS REPORT | Clinical Summary ---
Author Author Admin, Enrique Adamson Organization [facility] Address Unknown Phone Unavailable Allergies, Adverse [...] system RIB PAIN, RIGHT SIDED 786.50 Resolved oYli Mercado MD PhD Unspecified chest pain KNEE [...] PAIN, RIGHT ICD-719.46 Inactive Adele Vau ghn [employer]GRAM MANAGER Knee pain, left ICD-719.46 Inactive Adele Vaug hn [employer]IONAL PROGRAM MANAGER Pharyngitis-Acute ICD-462 Inactive Bertrand Redmond DO Polyuria ICD-788.42 Inactive Yoli Mercado MD P Cellulitis, leg, right ICD-682.6 Inactive Yuki Deluna MD Foreign body, ear ICD-931 Inactive Yoli salazar MD PhD Fatigue ICD-780.79 Inactive Ike Deluna MD 201 12/01/06 Headache ICD-784.0 Inactive Adele Feldman [employer]IONAL PROGRAM MANAGER 2017 Cough ICD-786.2 Inactive Adele Feldman REGIONAL PROGRAM MANAGER 06/04 SINUSITIS, ACUTE ICD-461.9 Inactive Ike lange MD Fatigue ICD-780.79 Inactive Adele Feldman [employer]IONAL PROGRAM MANAGER 2017 Bronchitis acute with bronchospasm ICD-466.0 I nactive Bertrand Patel DO Animal bite ICD-919.8 Inactive Adele Feldman LP N Mycoplasma infection ICD-041.81 Inactive Anit a Feldman REGIONAL PROGRAM MANAGER Amenorrhea, secondary ICD-626.0 Inactive Ani ta Feldman REGIONAL PROGRAM MANAGER Left maxillary sinusitis ICD-473.0 Inactive Bertrand Patel DO Medication List Medication Instructions Start Date Stop Date Generic Name NDC Status Provider Patient Instruction EVENING PRIMROSE OIL 1000 MG ORAL CAPSULE 1 capsule once daily EVENING PRIMROSE OIL 31469354730 Active Bertrand Patel DO Active LEVAQUIN 500 MG ORAL TABLET 1 tablet by mouth daily 21/06/28 LEVOFLOXACIN 27243123532 No Longer Active Bertrand Patel DO Active PREDNISONE 20 MG ORAL TABLET Take 3 tabs for 3 days, t hen 2 tabs for 3 days, then 1 tab for 3 days PREDNISONE 73514770189 No Rainer fatou Active Galilea Sell MOTHER'S HELPER Active DOXYCYCLINE HYCLATE 100 MG ORAL CAPSULE 1 cap by mouth twice jong ly DOXYCYCLINE HYCLATE 69231634230 No Longer Active Galilea Sell MOTHER'S HELPER Active ADDERALL 10 MG ORAL TABLET 1 tab twice daily 2 AMPHETAMINE-DEXTROAMPHETAMINE 91902462325 No Longer Active Nitza Phi llips Scribe Active ZITHROMAX Z-MARTIN 250 MG ORAL TABLET 2 today and then 1 daily for 4 days AZITHROMYCIN 48158049170 No Longer Active Nitza Osman lips Scribe Active BENZONATATE 200 MG ORAL CAPSULE 1 three times a day as neede d for cough BENZONATATE 39697231800 No Longer Active Nitza Osman lips Scribe Active VITAMIN D3 65469 UNIT ORAL CAPSULE 1 pill Week x 4 mo nths for vitamin D deficiency/osteoporosis CHOLECALCIFEROL 56557039485 N o Longer Active Layla Garcia Active BACTROBAN 2 % EXTERNAL CREAM Apply to affected area BID for up to 10 days MUPIROCIN CALCIUM 14082373424 No Longer Active Ike Deluna MD Active CIPRO 500 MG ORAL TABLET 1 tablet by mouth twice daily CIPROFLOXACIN HCL 45056939123 No Longer Active Adriana Bender LPN Active AUGMENTIN 875-125 MG ORAL TABLET 1 po BID x 10 days 20 18/04/06 AMOXICILLIN-POT CLAVULANATE 78511217944 No Longer Active Adriana Bender LPN Active MODAFINIL 200 MG ORAL TABLET Take 1/2 tab po in the am and 1 /2 tab po at noon MODAFINIL 03856610358 Active Bertrand Patel DO Ac tive CYCLOBENZAPRINE HCL 10 MG ORAL TABLET Take 1 tab TID PRN for mus triston pain CYCLOBENZAPRINE HCL 38737607940 No Longer Active Bertrand Patel DO Active TESSALON PERLES 100 MG ORAL CAPSULE 1 tablet by mouth 3 times da juan pablo BENZONATATE 29833071977 No Longer Active Bertrand Patel DO Ac tive NEBULIZER use as directed NEBULIZERS 77250150248 No Longer Active Bertrand Patel DO Active ALBUTEROL SULFATE (2.5 MG/3ML) 0.083% INHALATION NEBUL IZATION SOLUTION one vial per nebulizer every 4-6 hours as needed ALBUTERO L SULFATE 17263967169 No Longer Active Bertrand Patel DO Active SYMBICORT 160-4.5 MCG/ACT INHALATION AEROSOL 2 puffs BID 9 BUDESONIDE-FORMOTEROL FUMARATE 61690362117 No Longer Active Bertrand Patel DO Active PREDNISONE 20 MG ORAL TABLET take 3 tabs daily for 3 d ays, 2 tabs daily for 3 days, 1 tab daily for 3 days, 1/2 tab daily for 3 days 08/02 PREDNISONE 38091782595 No Longer Active Silvia Arell MOTHER'S HELPER Active AZITHROMYCIN 250 MG ORAL TABLET Take 2 tabs po today then 1 tab po daily AZITHROMYCIN 38351857428 No Longer Active Silvia Arell MOTHER'S HELPER Active AUGMENTIN 875-125 MG ORAL TABLET 1 po BID x 10 days 20 19/07/13 AMOXICILLIN-POT CLAVULANATE 42767108325 No Longer Active Adriana Bender LPN Active CHEWABLE CALCIUM 500-200-40 MG-UNT-MCG ORAL TABLET CHEWABLE 1 chew tab bid CALCIUM-VITAMIN D-VITAMIN K 44313968936 Active Silvia Are ll MOTHER'S HELPER Active EQ COMPLETE MULTIVIT ADULT 50+ ORAL TABLET 1 tab po bid MULTIPLE VITAMINS-MINERALS 94988065164 Active Silvia Arell MOTHER'S HELPER Active HYDROCODONE-ACETAMINOPHEN 7.5-325 MG ORAL TABLET TAKE ONE TAB EVERY 6 HOURS BY MOUTH NEEDED FOR PAIN HYDROCODONE-ACETAMINOPHEN 004 12524130 Active Bertrand Patel DO Active LORTAB 7.5-500 MG ORAL TABLET take one po Q6 hours 201 09/12/01 HYDROCODONE-ACETAMINOPHEN 86390927255 No Longer Active Nirmal Robbins RN Active [facility] MELATONIN 5-10 MG ORAL TABLET EXTENDED RELEASE Jair e one by mouth daily at bedtime MELATONIN-PYRIDOXINE 97440487445 No Longer Acti ve Bertrand Patel DO Active VITAMIN E 200 UNIT ORAL CAPSULE 1 cap po qd VITAM IN E 54873686710 No Longer Active Bertrand Patel DO Active B-12 1000 MCG ORAL CAPSULE 1 tab daily CYANOCOB ALAMIN 58804939613 No Longer Active Bertrand Patel DO Active METFORMIN HCL 500 MG ORAL TABLET 1 bid METFOR MIN HCL 70508408845 No Longer Active Bertrand Patel DO Active FUROSEMIDE 20 MG ORAL TABLET 1 pill by mouth daily if needed for edema FUROSEMIDE 20793641661 No Longer Active Bertrand Patel DO Active PRAVASTATIN SODIUM 20 MG ORAL TABLET 1 tablet by mouth daily at bedtime PRAVASTATIN SODIUM 91482651607 No Longer Active Bertrand Patel DO Active AUGMENTIN 875-125 MG ORAL TABLET 1 pill by mouth twice daily 201 09/10/00 AMOXICILLIN-POT CLAVULANATE 20187511748 No Longer Active Yoli Mercado MD PhD Active LEVAQUIN 500 MG ORAL TABLET 1 pill by mouth daily 2013 LEVOFLOXACIN 87520923780 No Longer Active Yoli Mercado MD PhD Acti ve AMLODIPINE BESYLATE 5 MG ORAL TABLET 1 tablet by mouth daily for blood pressure AMLODIPINE BESYLATE 59565818759 Active Bertrand Patel DO Active MICARDIS 80 MG ORAL TABLET 1 tablet daily for blood pressure 07/30 TELMISARTAN 85133410343 Active Bertrand Patel DO Active MICARDIS HCT 80-12.5 MG ORAL TABLET 1 qd TELMISARTAN-HCTZ 78103884722 No Longer Active Bertrand Patel DO Active CINNAMON ALPHA LIPOIC AC CMPLX CAPSULE by mouth twice a day in AM by mouth twice a day in PM ALPHA LIPOIC [id number] CA PS 13925708930 No Longer Active Bertrand Patel DO Active AZITHROMYCIN 500 MG INTRAVENOUS SOLUTION RECONSTITUTED 1 po q da y AZITHROMYCIN 63310641898 No Longer Active Bertrand Patel DO A ctive CYMBALTA 30 MG ORAL CAPSULE DELAYED RELEASE PARTICLES 1 cap by mouth daily DULOXETINE HCL 31716039216 No Longer Active Bertrand marquez DO Active CYMBALTA 60 MG ORAL CAPSULE DELAYED RELEASE PARTICLES 1 cap by mouth daily DULOXETINE HCL 90444769980 Active Bertrand Patel DO Active WELLBUTRIN 75 MG ORAL TABLET 2 times daily BUPR OPION HCL 87842431590 No Longer Active Bertrand Patel DO Active PROAIR HFA 108 (90 Base) MCG/ACT INHALATION AEROSOL SO LUTION take one to two puffs po Q4-6 hour prn cough and shortness of breath ALBUTEROL SULFATE 56846134073 Active Bertrand Patel DO Active AZITHROMYCIN 250 MG ORAL TABLET take 2 po today then take 1 po days 2-5 AZITHROMYCIN 66093789284 No Longer Active Adolfo OSORIO Active PERMETHRIN 5 % EXTERNAL CREAM apply neck to toes tonig ht and then rinse off in morning. repeat at 7 days PERMETHRIN 04770201148 No Longer Active Adolfo OSORIO Active AMOXICILLIN 500 MG ORAL CAPSULE 2 po BID x 10 days 201 07/15/00 AMOXICILLIN 43623157144 No Longer Active Yoli Mercado MD PhD Acti ve ALPRAZOLAM 0.5 MG ORAL TABLET 1 tab by mouth tid ALPRAZOLAM 44017761153 Active Bertrand Patel DO Active INSUPEN ULTRAFIN 31G X 6 MM USE DIRECTED INSULIN PEN NEEDLE 24405345979 No Longer Active Bertrand Patel DO Active TRANSDERM-SCOP (1.5 MG) 1 MG/3DAYS TRANSDERMAL PATCH 7 2 HOUR 1 patch applied behind ear q 3 day SCOPOLAMINE BASE 97629274691 No Lo nger Active Bertrand Patel DO Active MACRODANTIN 100 MG ORAL CAPSULE one p.o. b.i.d. x2 weeks NITROFURANTOIN MACROCRYSTAL 72102075503 No Longer Active Bertrand Patel DO Active MACRODANTIN 100 MG ORAL CAPSULE one p.o. b.i.d. x2 weeks MACRODANTIN 100 MG ORAL CAPSULE 4133475 NITROFURANTOIN MACROCRYSTAL Inactive TRANSDERM-SCOP (1.5 MG) 1 [...] days PERMETHRIN 5 % EXTER NAL CREAM 015374 PERMETHRIN Inactive WELLBUTRIN 75 MG ORAL TABLET 2 times daily WELLBUTRIN 75 MG ORAL TABLET BUPROPION HCL Inactive CYMBALTA 30 MG ORAL CAPSULE DELAYED RELEASE PARTICLES 1 cap by mouth daily CYMBALTA 30 MG ORAL CAPSULE DELAYED RELE ASE PARTICLES 437529 DULOXETINE HCL Inactive AZITHROMYCIN 500 MG INTRAVENOUS SOLUTION RECONSTITUTED 1 po q da y AZITHROMYCIN 500 MG INTRAVENOUS SOLUTION RECONSTITUTED 50818 536808 AZITHROMYCIN Inactive CINNAMON ALPHA LIPOIC AC CMPLX CAPSULE by mouth twice a day in AM by mouth twice a day in PM CINNAMON ALPHA LIPOIC AC CMPLX CAPSULE ALPHA LIPOIC [id number] CAPS Inactive MICARDIS HCT 80-12.5 MG ORAL TABLET 1 qd 07/30 MICARDIS HCT 80-12.5 MG ORAL TABLET 518435 TELMISARTAN-HCTZ Inactive PRAVASTATIN SODIUM 20 MG ORAL TABLET 1 tablet by mouth daily at bedtime PRAVASTATIN SODIUM 20 MG ORAL TABLET 049355 PRAVASTATIN SODIUM Inactive FUROSEMIDE 20 MG ORAL TABLET 1 pill by mouth daily if needed for edema FUROSEMIDE 20 MG ORAL TABLET 133739 FUROSEMIDE Inactive METFORMIN HCL 500 MG ORAL TABLET 1 bid METFORMIN HCL 500 MG ORAL TABLET 912627 METFORMIN HCL Inactive B-12 1000 MCG ORAL CAPSULE 1 tab daily B -12 1000 MCG ORAL CAPSULE CYANOCOBALAMIN Inactive VITAMIN E 200 UNIT ORAL CAPSULE 1 cap po qd 1 VITAMIN E 200 UNIT ORAL CAPSULE 1095486 VITAMIN E Inactive [facility] MELATONIN 5-10 MG [...] po daily AZITHROMYCIN 250 MG ORAL TABLET 224862 AZITHROMY BERNARDO Inactive SYMBICORT 160-4.5 MCG/ACT INHALATION AEROSOL 2 puffs BID 9 SYMBICORT 160-4.5 MCG/ACT INHALATION AEROSOL BUDESONIDE-FORM OTEROL FUMARATE Inactive ALBUTEROL SULFATE (2.5 MG/3ML) 0.083% INHALATION NEBUL IZATION SOLUTION one vial per nebulizer every 4-6 hours as needed ALBUTEROL SULFATE (2.5 MG/3ML) 0.083% INHALATION NEBULIZATION SOLUTION 599106 ALBUTER OL SULFATE Inactive NEBULIZER use as directed NEBULIZER NEBULI ZERS Inactive TESSALON PERLES 100 MG ORAL CAPSULE 1 tablet by mouth 3 times da juan pablo TESSALON PERLES 100 MG ORAL CAPSULE 089534 BENZONATATE Inactive CYCLOBENZAPRINE HCL 10 MG ORAL TABLET Take 1 tab TID PRN for mus triston pain CYCLOBENZAPRINE HCL 10 MG ORAL TABLET 706078 CYCLOBENZA ANUJA HCL Inactive AUGMENTIN 875-125 MG ORAL TABLET 1 po BID x 10 days 20 18/04/06 AUGMENTIN 875-125 MG ORAL TABLET AMOXICILLIN-POT CLAVULANATE Inactive BACTROBAN 2 % EXTERNAL CREAM Apply to affected area BID for up to 10 days BACTROBAN 2 % EXTERNAL CREAM MUPIROCIN CA LCIUM Inactive VITAMIN D3 93431 UNIT ORAL CAPSULE 1 pill Week x 4 mo nths for vitamin D deficiency/osteoporosis VITAMIN D3 17395 UNIT ORAL CAPSULE CHOLECALCIFEROL Inactive BENZONATATE 200 MG ORAL CAPSULE 1 three times a day as neede d for cough BENZONATATE 200 MG ORAL CAPSULE 801973 BENZONATA TE Inactive ZITHROMAX Z-MARTIN 250 MG ORAL TABLET 2 today and then 1 daily for 4 days ZITHROMAX Z-MARTIN 250 MG ORAL TABLET 373250 AZITHR OMYCIN Inactive ADDERALL 10 MG ORAL TABLET 1 tab twice daily 2 ADDERALL 10 MG ORAL TABLET 244405 AMPHETAMINE-DEXTROAMPHETAMINE Inactive LEVAQUIN 500 MG ORAL TABLET 1 tablet by mouth daily 20 21/06/28 LEVAQUIN 500 MG ORAL TABLET 019900 LEVOFLOXACIN Inactive AMOXICILLIN 500 MG ORAL CAPSULE 2 po BID x 10 days 201 07/15/00 AMOXICILLIN 500 MG ORAL CAPSULE 806372 AMOXICILLIN Inactive AZITHROMYCIN 250 MG ORAL TABLET take 2 po today then take 1 po days 2-5 AZITHROMYCIN 250 MG ORAL TABLET 907144 AZITHROMY BERNARDO Inactive LEVAQUIN 500 MG ORAL TABLET 1 pill by mouth daily 2013 LEVAQUIN 500 MG ORAL TABLET 896347 LEVOFLOXACIN Inactive AUGMENTIN 875-125 MG ORAL TABLET [...] days 08/02 PREDNISONE 20 MG ORAL TABLET 007521 PREDNISONE Inactive CIPRO 500 MG ORAL TABLET 1 tablet by mouth twice daily CIPRO 500 MG ORAL TABLET 313181 CIPROFLOXACIN HCL Inactive DOXYCYCLINE HYCLATE 100 MG ORAL CAPSULE 1 cap by mouth twice jong ly DOXYCYCLINE HYCLATE 100 MG ORAL CAPSULE 7542769 DOXYCYCL INE HYCLATE Inactive PREDNISONE 20 MG [...] d Encounters Code Encounter Date Provider Facility CPT-27935 [id number] Vst-Est Level IV 14:46:36 [employer] Jacklyn Patel [facility]-50566 Level 3 Est. Patient 12:37:30 [employer] Galilea Se [facility]-72299 Level 3 Est. Patient 11:40:23 CDT Bertrand marquez [facility]-50852 Level 4 Est. Patient 15:33:35 [employer]IVER Bertrand marquez [facility]-52234 Level 4 Est. Patient 12:31:54 CDT Bertrand marquez [facility]-38675 Level 3 Est. Patient 11:27:00 [employer]IVER Ike Deluna MD [facility]-22134 Level 3 Est. Patient 08:50:57 [employer] DRIVER Silvia Are ll [facility]-50558 Level 3 Est. Patient 10:04:13 CDT Bertrand marquez [facility]-96733 Level 4 Est. Patient 16:02:10 [employer] DRIVER Silvia Are ll [facility]-60198 Level 3 Est. Patient 13:04:54 [employer] R[employer] DRIVER Silvia Are [facility]-48665 Level 3 Est. Patient 12:56:37 CDT Bertrand marquez [facility]-10953 Level 3 Est. Patient 19:12:03 CDT Yoli tolbert MD PhD [facility]-43399 Level 3 Est. Patient 14:36:01 CDT Yoli tolbert MD PhD [facility]-25810 Level 2 Est. Patient 08:00:22 CDT Jcarlos dc MD [facility] Level 3 Est. Patient 19:06:55 CDT Bertrand marquez [facility]-75878 Level 3 Est. Patient 10:08:23 [employer] [employer]IVER Bertrand Sabillon ee [facility] CPT-53919 Level 3 Est. Patient 16:37:54 [employer] DRIVER Bertrand Sabillon jimmy [facility] CPT-10625 Level 3 Est. Patient 11:31:59 [employer] DRIVER Bertrand Sabillon jimmy [facility] CPT-69744 Level 3 Est. Patient 10:20:08 CDT Gennadot Porfirioridge villasenor [facility] CPT-02929 Level 3 Est. Patient 13:45:20 CDT Sanket Garciakelvin buckley [facility] CPT-04128 Level 3 Est. Patient 12:51:06 CDT Adolfo villasenor [facility] CPT-72372 Level 3 Est. Patient 11:22:51 [employer] [employer]IVER Yoli tolbert MD [facility] CPT-35832 Level 3 Est. Patient 13:33:19 CDT Bertrand marquez [facility] Procedures Code Procedure Name Date Entry Date Standard Desc ription CPT-47190 Wound Culture - LAB USE ONLY 15:45:25 CDT 2 CPT-64047 Venipuncture Draw Fee 10:23:01 CDT CPT-J0696 Rocephin 1000 mg (Ceftriaxone) 16:20:30 [employer] CPT-67191 Abx/Therapy Injection 16:20:29 [employer] DRIVER CPT-J0696 Rocephin 1gm Inj Solr 15:51:59 [employer] DRIVER CPT-23967 Chest 2V Frontal and Lat 15:20:28 [employer] DRIVER 07/22 CPT-12886 Breathing Tx 14:51:55 [employer] DRIVER CPT-70787 Breathing Tx 09:57:16 [employer] DRIVER CPT-77169 Knee comp 4/> V 11:58:06 [employer] DRIVER
--- OUTSIDE RECORDS SUMMARY | 2019-11-13 09:52 | XMS REPORT | Clinical Summary ---
Author Author Admin, Enrique Adamson Organization [facility] Address Unknown Phone Unavailable Allergies, Adverse Reactions, [...] Other and unspecified hyperlipidemia Pharyngitis-Acute 462 Inactive Betrrand Patel DO Acute pharyngitis Polyuria 788.42 Resolved [...] PAIN, RIGHT ICD-719.46 Inactive Adele Vau ghn FLOOR ASSOCIATE Knee pain, left ICD-719.46 Inactive Adele Vaug hn FLOOR ASSOCIATE Pharyngitis-Acute ICD-462 Inactive Bertrand Redmond DO Polyuria ICD-788.42 Inactive Yoli Mercado MD P Cellulitis, leg, right ICD-682.6 Inactive Yuki Deluna MD Foreign body, ear ICD-931 Inactive Yoli salazar MD PhD Fatigue ICD-780.79 Inactive Ike Deluna MD 201 12/01/06 Headache ICD-784.0 Inactive Adele Feldman FLOOR ASSOCIATE 2017 Cough ICD-786.2 Inactive Adele Feldman FLOOR ASSOCIATE 06/04 SINUSITIS, ACUTE ICD-461.9 Inactive Ike lange MD Fatigue ICD-780.79 Inactive Adele Feldman FLOOR ASSOCIATE 2017 Bronchitis acute with bronchospasm ICD-466.0 I nactive Bertrand Patel DO Animal bite ICD-919.8 Inactive Adele Feldman LP N Mycoplasma infection ICD-041.81 Inactive Anit a Feldman FLOOR ASSOCIATE Amenorrhea, secondary ICD-626.0 Inactive Ani ta Feldman FLOOR ASSOCIATE Left maxillary sinusitis ICD-473.0 Inactive Bertrand Patel DO Medication List Medication Instructions Start Date Stop Date Generic Name NDC Status Provider Patient Instruction EVENING PRIMROSE OIL 1000 MG ORAL CAPSULE 1 capsule once daily EVENING PRIMROSE OIL 45394580473 Active Bertrand Patel DO Active LEVAQUIN 500 MG ORAL TABLET 1 tablet by mouth daily 21/06/28 LEVOFLOXACIN 02134194521 No Longer Active Bertrand Patel DO Active PREDNISONE 20 MG ORAL TABLET Take 3 tabs for 3 days, t hen 2 tabs for 3 days, then 1 tab for 3 days PREDNISONE 75136094130 No Rainer fatou Active Galilea Sell WIPING RAG WASHER Active DOXYCYCLINE HYCLATE 100 MG ORAL CAPSULE 1 cap by mouth twice jong ly DOXYCYCLINE HYCLATE 72281379361 No Longer Active Galilea Sell [employer]ING RAG WASHER Active ADDERALL 10 MG ORAL TABLET 1 tab twice daily 2 AMPHETAMINE-DEXTROAMPHETAMINE 57398634020 No Longer Active Nitza Phi llips Scribe Active ZITHROMAX Z-MARTIN 250 MG ORAL TABLET 2 today and then 1 daily for 4 days AZITHROMYCIN 16892548075 No Longer Active Nitza Osman lips Scribe Active BENZONATATE 200 MG ORAL CAPSULE 1 three times a day as neede d for cough BENZONATATE 34790807941 No Longer Active Nitza Osman lips Scribe Active VITAMIN D3 63627 UNIT ORAL CAPSULE 1 pill Week x 4 mo nths for vitamin D deficiency/osteoporosis CHOLECALCIFEROL 83477956766 N o Longer Active Layla Garcia Active BACTROBAN 2 % EXTERNAL CREAM Apply to affected area BID for up to 10 days MUPIROCIN CALCIUM 56300769982 No Longer Active Ike Deluna MD Active CIPRO 500 MG ORAL TABLET 1 tablet by mouth twice daily CIPROFLOXACIN HCL 33083152788 No Longer Active Adriana Bender LPN Active AUGMENTIN 875-125 MG ORAL TABLET 1 po BID x 10 days 20 18/04/06 AMOXICILLIN-POT CLAVULANATE 80162476868 No Longer Active Adriana Bender LPN Active MODAFINIL 200 MG ORAL TABLET Take 1/2 tab po in the am and 1 /2 tab po at noon MODAFINIL 66328633305 Active Bertrand Patel DO Ac tive CYCLOBENZAPRINE HCL 10 MG ORAL TABLET Take 1 tab TID PRN for mus triston pain CYCLOBENZAPRINE HCL 04421674877 No Longer Active Bertrand Patel DO Active TESSALON PERLES 100 MG ORAL CAPSULE 1 tablet by mouth 3 times da juan pablo BENZONATATE 37794483517 No Longer Active Bertrand Patel DO Ac tive NEBULIZER use as directed NEBULIZERS 20237216228 No Longer Active Bertrand Patel DO Active ALBUTEROL SULFATE (2.5 MG/3ML) 0.083% INHALATION NEBUL IZATION SOLUTION one vial per nebulizer every 4-6 hours as needed ALBUTERO L SULFATE 97911180901 No Longer Active Bertrand Patel DO Active SYMBICORT 160-4.5 MCG/ACT INHALATION AEROSOL 2 puffs BID 9 BUDESONIDE-FORMOTEROL FUMARATE 05216726644 No Longer Active Bertrand Patel DO Active PREDNISONE 20 MG ORAL TABLET take 3 tabs daily for 3 d ays, 2 tabs daily for 3 days, 1 tab daily for 3 days, 1/2 tab daily for 3 days 08/02 PREDNISONE 07326177722 No Longer Active Silvia Arell [employer]ING RAG W[employer]ER Active AZITHROMYCIN 250 MG ORAL TABLET Take 2 tabs po today then 1 tab po daily AZITHROMYCIN 81350133475 No Longer Active Silvia Arell [employer]ING RAG W[employer]ER Active AUGMENTIN 875-125 MG ORAL TABLET 1 po BID x 10 days 20 19/07/13 AMOXICILLIN-POT CLAVULANATE 37297348587 No Longer Active Adriana Bender LPN Active CHEWABLE CALCIUM 500-200-40 MG-UNT-MCG ORAL TABLET CHEWABLE 1 chew tab bid CALCIUM-VITAMIN D-VITAMIN K 17763434599 Active Silvia Are ll WIPING RAG WASHER Active EQ COMPLETE MULTIVIT ADULT 50+ ORAL TABLET 1 tab po bid MULTIPLE VITAMINS-MINERALS 56729201767 Active Silvia Arell [employer] RAG W[employer]ER Active HYDROCODONE-ACETAMINOPHEN 7.5-325 MG ORAL TABLET TAKE ONE TAB EVERY 6 HOURS BY MOUTH NEEDED FOR PAIN HYDROCODONE-ACETAMINOPHEN 004 98858600 Active Bertrand Patel DO Active LORTAB 7.5-500 MG ORAL TABLET take one po Q6 hours 201 09/12/01 HYDROCODONE-ACETAMINOPHEN 52809322876 No Longer Active Nirmal Robbins RN Active [facility] MELATONIN 5-10 MG ORAL TABLET EXTENDED RELEASE Jair e one by mouth daily at bedtime MELATONIN-PYRIDOXINE 25584525919 No Longer Acti ve Bertrand Patel DO Active VITAMIN E 200 UNIT ORAL CAPSULE 1 cap po qd VITAM IN E 79071354381 No Longer Active Bertrand Patel DO Active B-12 1000 MCG ORAL CAPSULE 1 tab daily CYANOCOB ALAMIN 33663664019 No Longer Active Bertrand Patel DO Active METFORMIN HCL 500 MG ORAL TABLET 1 bid METFOR MIN HCL 71512768141 No Longer Active Bertrand Patel DO Active FUROSEMIDE 20 MG ORAL TABLET 1 pill by mouth daily if needed for edema FUROSEMIDE 86060158456 No Longer Active Bertrand Patel DO Active PRAVASTATIN SODIUM 20 MG ORAL TABLET 1 tablet by mouth daily at bedtime PRAVASTATIN SODIUM 09973147670 No Longer Active Bertrand Patel DO Active AUGMENTIN 875-125 MG ORAL TABLET 1 pill by mouth twice daily 201 09/10/00 AMOXICILLIN-POT CLAVULANATE 29739582007 No Longer Active Yoli Mercado MD PhD Active LEVAQUIN 500 MG ORAL TABLET 1 pill by mouth daily 2013 LEVOFLOXACIN 98599402095 No Longer Active Yoli Mercado MD PhD Acti ve AMLODIPINE BESYLATE 5 MG ORAL TABLET 1 tablet by mouth daily for blood pressure AMLODIPINE BESYLATE 95150641873 Active Bertrand Patel DO Active MICARDIS 80 MG ORAL TABLET 1 tablet daily for blood pressure 07/30 TELMISARTAN 18809347545 Active Bertrand Patel DO Active MICARDIS HCT 80-12.5 MG ORAL TABLET 1 qd TELMISARTAN-HCTZ 40813269436 No Longer Active Bertrand Patel DO Active CINNAMON ALPHA LIPOIC AC CMPLX CAPSULE by mouth twice a day in AM by mouth twice a day in PM ALPHA LIPOIC DRFI-PP-ADRTPNQC CA PS 17448408294 No Longer Active Bertarnd Patel DO Active AZITHROMYCIN 500 MG INTRAVENOUS SOLUTION RECONSTITUTED 1 po q da y AZITHROMYCIN 05504638040 No Longer Active Bertrand Patel DO A ctive CYMBALTA 30 MG ORAL CAPSULE DELAYED RELEASE PARTICLES 1 cap by mouth daily DULOXETINE HCL 42177146988 No Longer Active Bertrand marquez DO Active CYMBALTA 60 MG ORAL CAPSULE DELAYED RELEASE PARTICLES 1 cap by mouth daily DULOXETINE HCL 56899432099 Active Bertrand Patel DO Active WELLBUTRIN 75 MG ORAL TABLET 2 times daily BUPR OPION HCL 95036083625 No Longer Active Bertrand Patel DO Active PROAIR HFA 108 (90 Base) MCG/ACT INHALATION AEROSOL SO LUTION take one to two puffs po Q4-6 hour prn cough and shortness of breath ALBUTEROL SULFATE 55257123136 Active Bertrand Patel DO Active AZITHROMYCIN 250 MG ORAL TABLET take 2 po today then take 1 po days 2-5 AZITHROMYCIN 03416329445 No Longer Active Adolfo OSORIO Active PERMETHRIN 5 % EXTERNAL CREAM apply neck to toes tonig ht and then rinse off in morning. repeat at 7 days PERMETHRIN 28435452141 No Longer Active Adolfo OSORIO Active AMOXICILLIN 500 MG ORAL CAPSULE 2 po BID x 10 days 201 07/15/00 AMOXICILLIN 43949548090 No Longer Active Yoli Mercado MD PhD Acti ve ALPRAZOLAM 0.5 MG ORAL TABLET 1 tab by mouth tid ALPRAZOLAM 31084251045 Active Bertrand Patel DO Active INSUPEN ULTRAFIN 31G X 6 MM USE DIRECTED INSULIN PEN NEEDLE 27626591574 No Longer Active Bertrand Patel DO Active TRANSDERM-SCOP (1.5 MG) 1 MG/3DAYS TRANSDERMAL PATCH 7 2 HOUR 1 patch applied behind ear q 3 day SCOPOLAMINE BASE 88413960446 No Lo nger Active Bertrand Patel DO Active MACRODANTIN 100 MG ORAL CAPSULE one p.o. b.i.d. x2 weeks NITROFURANTOIN MACROCRYSTAL 73297142112 No Longer Active Bertrand Patel DO Active MACRODANTIN 100 MG ORAL CAPSULE one p.o. b.i.d. x2 weeks MACRODANTIN 100 MG ORAL CAPSULE 4395525 NITROFURANTOIN MACROCRYSTAL Inactive TRANSDERM-SCOP (1.5 MG) 1 [...] days PERMETHRIN 5 % EXTER NAL CREAM 656570 PERMETHRIN Inactive WELLBUTRIN 75 MG ORAL TABLET 2 times daily WELLBUTRIN 75 MG ORAL TABLET BUPROPION HCL Inactive CYMBALTA 30 MG ORAL CAPSULE DELAYED RELEASE PARTICLES 1 cap by mouth daily CYMBALTA 30 MG ORAL CAPSULE DELAYED RELE ASE PARTICLES 453646 DULOXETINE HCL Inactive AZITHROMYCIN 500 MG INTRAVENOUS SOLUTION RECONSTITUTED 1 po q da y AZITHROMYCIN 500 MG INTRAVENOUS SOLUTION RECONSTITUTED 68520 104214 AZITHROMYCIN Inactive CINNAMON ALPHA LIPOIC AC CMPLX CAPSULE by mouth twice a day in AM by mouth twice a day in PM CINNAMON ALPHA LIPOIC AC CMPLX CAPSULE ALPHA LIPOIC [id number] CAPS Inactive MICARDIS HCT 80-12.5 MG ORAL TABLET 1 qd 07/30 MICARDIS HCT 80-12.5 MG ORAL TABLET 173709 TELMISARTAN-HCTZ Inactive PRAVASTATIN SODIUM 20 MG ORAL TABLET 1 tablet by mouth daily at bedtime PRAVASTATIN SODIUM 20 MG ORAL TABLET 277496 PRAVASTATIN SODIUM Inactive FUROSEMIDE 20 MG ORAL TABLET 1 pill by mouth daily if needed for edema FUROSEMIDE 20 MG ORAL TABLET 414896 FUROSEMIDE Inactive METFORMIN HCL 500 MG ORAL TABLET 1 bid METFORMIN HCL 500 MG ORAL TABLET 718768 METFORMIN HCL Inactive B-12 1000 MCG ORAL CAPSULE 1 tab daily B -12 1000 MCG ORAL CAPSULE CYANOCOBALAMIN Inactive VITAMIN E 200 UNIT ORAL CAPSULE 1 cap po qd 1 VITAMIN E 200 UNIT ORAL CAPSULE 2890099 VITAMIN E Inactive [facility] MELATONIN 5-10 MG [...] po daily AZITHROMYCIN 250 MG ORAL TABLET 707690 AZITHROMY BERNARDO Inactive SYMBICORT 160-4.5 MCG/ACT INHALATION AEROSOL 2 puffs BID 9 SYMBICORT 160-4.5 MCG/ACT INHALATION AEROSOL BUDESONIDE-FORM OTEROL FUMARATE Inactive ALBUTEROL SULFATE (2.5 MG/3ML) 0.083% INHALATION NEBUL IZATION SOLUTION one vial per nebulizer every 4-6 hours as needed ALBUTEROL SULFATE (2.5 MG/3ML) 0.083% INHALATION NEBULIZATION SOLUTION 882789 ALBUTER OL SULFATE Inactive NEBULIZER use as directed NEBULIZER NEBULI ZERS Inactive TESSALON PERLES 100 MG ORAL CAPSULE 1 tablet by mouth 3 times da juan pablo TESSALON PERLES 100 MG ORAL CAPSULE 617431 BENZONATATE Inactive CYCLOBENZAPRINE HCL 10 MG ORAL TABLET Take 1 tab TID PRN for mus triston pain CYCLOBENZAPRINE HCL 10 MG ORAL TABLET 819478 CYCLOBENZA ANUJA HCL Inactive AUGMENTIN 875-125 MG ORAL TABLET 1 po BID x 10 days 20 18/04/06 AUGMENTIN 875-125 MG ORAL TABLET AMOXICILLIN-POT CLAVULANATE Inactive BACTROBAN 2 % EXTERNAL CREAM Apply to affected area BID for up to 10 days BACTROBAN 2 % EXTERNAL CREAM MUPIROCIN CA LCIUM Inactive VITAMIN D3 81310 UNIT ORAL CAPSULE 1 pill Week x 4 mo nths for vitamin D deficiency/osteoporosis VITAMIN D3 50074 UNIT ORAL CAPSULE CHOLECALCIFEROL Inactive BENZONATATE 200 MG ORAL CAPSULE 1 three times a day as neede d for cough BENZONATATE 200 MG ORAL CAPSULE 903758 BENZONATA TE Inactive ZITHROMAX Z-MARTIN 250 MG ORAL TABLET 2 today and then 1 daily for 4 days ZITHROMAX Z-MARTIN 250 MG ORAL TABLET 908086 AZITHR OMYCIN Inactive ADDERALL 10 MG ORAL TABLET 1 tab twice daily 2 ADDERALL 10 MG ORAL TABLET 260472 AMPHETAMINE-DEXTROAMPHETAMINE Inactive LEVAQUIN 500 MG ORAL TABLET 1 tablet by mouth daily 20 21/06/28 LEVAQUIN 500 MG ORAL TABLET 863574 LEVOFLOXACIN Inactive AMOXICILLIN 500 MG ORAL CAPSULE 2 po BID x 10 days 201 07/15/00 AMOXICILLIN 500 MG ORAL CAPSULE 868901 AMOXICILLIN Inactive AZITHROMYCIN 250 MG ORAL TABLET take 2 po today then take 1 po days 2-5 AZITHROMYCIN 250 MG ORAL TABLET 928471 AZITHROMY BERNARDO Inactive LEVAQUIN 500 MG ORAL TABLET 1 pill by mouth daily 2013 LEVAQUIN 500 MG ORAL TABLET 227591 LEVOFLOXACIN Inactive AUGMENTIN 875-125 MG ORAL TABLET [...] days 08/02 PREDNISONE 20 MG ORAL TABLET 010180 PREDNISONE Inactive CIPRO 500 MG ORAL TABLET 1 tablet by mouth twice daily CIPRO 500 MG ORAL TABLET 485244 CIPROFLOXACIN HCL Inactive DOXYCYCLINE HYCLATE 100 MG ORAL CAPSULE 1 cap by mouth twice jong ly DOXYCYCLINE HYCLATE 100 MG ORAL CAPSULE 6828787 DOXYCYCL INE HYCLATE Inactive PREDNISONE 20 MG [...] d Encounters Code Encounter Date Provider Facility CPT-27587 [id number] Vst-Est Level IV 14:46:36 CHECK OUT CASHIER [employer] Jacklyn Patel [facility]-45093 Level 3 Est. Patient 12:37:30 CHECK OUT CASHIER Galilea Se [facility]-26217 Level 3 Est. Patient 11:40:23 CDT Bertrand marquez [facility]-16465 Level 4 Est. Patient 15:33:35 CHECK OUT CASHIER Bertrand marquez [facility]-77024 Level 4 Est. Patient 12:31:54 CDT Bertrand marquez [facility]-39662 Level 3 Est. Patient 11:27:00 CHECK OUT CASHIER Ike Deluna MD [facility]-20141 Level 3 Est. Patient 08:50:57 CHECK OUT CASHIER Silvia Are ll [facility]-14391 Level 3 Est. Patient 10:04:13 CDT Bertrand marquez [facility]-21679 Level 4 Est. Patient 16:02:10 CHECK OUT CASHIER Silvia Are ll [facility]-69024 Level 3 Est. Patient 13:04:54 CHECK OUT CASHIER Silvia Are [facility]-84312 Level 3 Est. Patient 12:56:37 CDT Bertrand marquez [facility] [place]-12783 Level 3 Est. Patient 19:12:03 CDT Yoli tolbert MD PhD [facility] [place][note 2]-75416 Level 3 Est. Patient 14:36:01 CDT Yoli tolbert MD PhD [facility] [place][note 2]-00278 Level 2 Est. Patient 08:00:22 CDT Jcarlos dc MD [facility]86080 Level 3 Est. Patient 19:06:55 CDT Bertrand marquez [facility] [place]-78060 Level 3 Est. Patient 10:08:23 CHECK OUT CASHIER Bertrand Sabillon ee [facility] CPT-20234 Level 3 Est. Patient 16:37:54 CHECK OUT CASHIER Bertrand Sabillon jimmy [facility] CPT-50579 Level 3 Est. Patient 11:31:59 CHECK OUT CASHIER Bertrand Sabillon jimmy [facility] CPT-24005 Level 3 Est. Patient 10:20:08 CDT Gennadot Porfirioridge villasenor [facility] CPT-32215 Level 3 Est. Patient 13:45:20 CDT Sanket Garciakelvin buckley [facility] CPT-71199 Level 3 Est. Patient 12:51:06 CDT Adolfo villasenor [facility] CPT-34823 Level 3 Est. Patient 11:22:51 CHECK OUT CASHIER Yoli tolbert MD [facility] CPT-19451 Level 3 Est. Patient 13:33:19 CDT Bertrand marquez [facility] Procedures Code Procedure Name Date Entry Date Standard Desc ription CPT-72242 Wound Culture - LAB USE ONLY 15:45:25 CDT 2 CPT-38745 Venipuncture Draw Fee 10:23:01 CDT CPT-J0696 Rocephin 1000 mg (Ceftriaxone) 16:20:30 CHECK OUT CASHIER CPT-36339 Abx/Therapy Injection 16:20:29 CHECK OUT CASHIER CPT-J0696 Rocephin 1gm Inj Solr 15:51:59 CHECK OUT CASHIER CPT-12625 Chest 2V Frontal and Lat 15:20:28 CHECK OUT CASHIER 07/22 CPT-30510 Breathing Tx 14:51:55 CHECK OUT CASHIER CPT-47340 Breathing Tx 09:57:16 CHECK OUT CASHIER CPT-03642 Knee comp 4/> V 11:58:06 CHECK OUT CASHIER
--- OUTSIDE RECORDS SUMMARY | 2019-11-13 09:53 | XMS REPORT | Clinical Summary ---
Author Author Admin, Enrique Adamson Organization [employer] Address Unknown Phone Unavailable Allergies, Adverse Reactions, [...] U nspecified essential hypertension SCABIES 133.0 Resolved Yoil Mercado MD PhD Scabies FH DIABETES V18.0 [...] Patel DO Body Mass Index 50.0-59.9, adult HEALTH SCREENING ICD-V70.0 Inactive Yoli sabillon MD PhD SCABIES ICD-133.0 Inactive Yoli Mercado MD PhD 201 07/14/20 FH DIABETES ICD-V18.0 Inactive Yoli Mercado MD PhD 20 14/02/29 SINUSITIS, FRONTAL, ACUTE ICD-461.1 Inactive Yoli Mercado MD PhD COUGH ICD-786.2 Inactive Yoli Mercado MD PhD 201 09/09/28 EDEMA LEG ICD-782.3 Inactive Adele Feldman RESOURCE TECHNICIAN 201 01/01/02 SHORTNESS OF BREATH ICD-786.05 Inactive Yoli Mercado MD PhD RIB PAIN, RIGHT SIDED ICD-786.50 Inactive Yoli Mercado MD PhD KNEE PAIN, RIGHT ICD-719.46 Inactive Adele chiu LPN Knee pain, left ICD-719.46 Inactive Adele damico [...] Patel DO Animal bite ICD-919.8 Inactive Adele Chawla Mycoplasma infection ICD-041.81 Inactive Malindait terry Feldman LPN Amenorrhea, secondary ICD-626.0 Inactive Malindai quinton Feldman LPN Left maxillary sinusitis ICD-473.0 Inactive Bertrand Patel DO Medication List Medication Instructions Start Date Stop Date Generic Name NDC Status Provider Patient Instruction EVENING PRIMROSE OIL 1000 MG ORAL CAPSULE 1 capsule once daily EVENING PRIMROSE OIL 42583109855 Active Bertrand Patel DO Active LEVAQUIN 500 MG ORAL TABLET 1 tablet by mouth daily 21/06/28 LEVOFLOXACIN 81996591677 No Longer Active Bertrand Patel DO Active PREDNISONE 20 MG ORAL TABLET Take 3 tabs for 3 days, t hen 2 tabs for 3 days, then 1 tab for 3 days PREDNISONE 67454584782 No Rainer fatou Active Galilea Sell STRAW HAT BRIM CUTTER OPERATOR Active DOXYCYCLINE HYCLATE 100 MG ORAL CAPSULE 1 cap by mouth twice jong ly DOXYCYCLINE HYCLATE 60082190639 No Longer Active Galilea Sell STRAW HAT BRIM CUTTER OPERATOR Active ADDERALL 10 MG ORAL TABLET 1 tab twice daily 2 AMPHETAMINE-DEXTROAMPHETAMINE 68340030999 No Longer Active Nitza Phi llips Scribe Active ZITHROMAX Z-MARTIN 250 MG ORAL TABLET 2 today and then 1 daily for 4 days AZITHROMYCIN 06662114385 No Longer Active Nitza Osman lips Scribe Active BENZONATATE 200 MG ORAL CAPSULE 1 three times a day as neede d for cough BENZONATATE 88274905038 No Longer Active Nitza Osman lips Scribe Active VITAMIN D3 23077 UNIT ORAL CAPSULE 1 pill Week x 4 mo nths for vitamin D deficiency/osteoporosis CHOLECALCIFEROL 35603816705 N o Longer Active Layla Garcia Active BACTROBAN 2 % EXTERNAL CREAM Apply to affected area BID for up to 10 days MUPIROCIN CALCIUM 75838555816 No Longer Active Ike Deluna MD Active CIPRO 500 MG ORAL TABLET 1 tablet by mouth twice daily CIPROFLOXACIN HCL 52802323117 No Longer Active Adriana Bender LPN Active AUGMENTIN 875-125 MG ORAL TABLET 1 po BID x 10 days 18/04/06 AMOXICILLIN-POT CLAVULANATE 63658443360 No Longer Active Adriana Bender LPN Active MODAFINIL 200 MG ORAL TABLET Take 1/2 tab po in the am and 1 /2 tab po at noon MODAFINIL 27242785860 Active Bertrand Patel DO Ac tive CYCLOBENZAPRINE HCL 10 MG ORAL TABLET Take 1 tab TID PRN for mus triston pain CYCLOBENZAPRINE HCL 31962029505 No Longer Active Bertrand Patel DO Active TESSALON PERLES 100 MG ORAL CAPSULE 1 tablet by mouth 3 times da juna pablo BENZONATATE 85840405612 No Longer Active Bertrand Patel DO Ac tive NEBULIZER use as directed NEBULIZERS 83560320563 No Longer Active Bertrand Patel DO Active ALBUTEROL SULFATE (2.5 MG/3ML) 0.083% INHALATION NEBUL IZATION SOLUTION one vial per nebulizer every 4-6 hours as needed ALBUTERO L SULFATE 55982149806 No Longer Active Bertrand Patel DO Active SYMBICORT 160-4.5 MCG/ACT INHALATION AEROSOL 2 puffs BID 9 BUDESONIDE-FORMOTEROL FUMARATE 03894312060 No Longer Active Bertrand Paetl DO Active PREDNISONE 20 MG ORAL TABLET take 3 tabs daily for 3 d ays, 2 tabs daily for 3 days, 1 tab daily for 3 days, 1/2 tab daily for 3 days 08/02 PREDNISONE 15944471079 No Longer Active Silvia Arekalin STRAW HAT BRIM CUTTER OPERATOR Active AZITHROMYCIN 250 MG ORAL TABLET Take 2 tabs po today then 1 tab po daily AZITHROMYCIN 56342565768 No Longer Active Silvia Arell STRAW HAT BRIM CUTTER OPERATOR Active AUGMENTIN 875-125 MG ORAL TABLET 1 po BID x 10 days 20 19/07/13 AMOXICILLIN-POT CLAVULANATE 59457495893 No Longer Active Adriana Bender RESOURCE TECHNICIAN Active CHEWABLE CALCIUM 500-200-40 MG-UNT-MCG ORAL TABLET CHEWABLE 1 chew tab bid CALCIUM-VITAMIN D-VITAMIN K 29295498989 Active Silvia Are ll STRAW HAT BRIM CUTTER OPERATOR Active EQ COMPLETE MULTIVIT ADULT 50+ ORAL TABLET 1 tab po bid MULTIPLE VITAMINS-MINERALS 43345495919 Active Silvia Arell STRAW HAT BRIM CUTTER OPERATOR Active HYDROCODONE-ACETAMINOPHEN 7.5-325 MG ORAL TABLET TAKE ONE TAB EVERY 6 HOURS BY MOUTH NEEDED FOR PAIN HYDROCODONE-ACETAMINOPHEN 004 05982037 Active Bertrand Patel DO Active LORTAB 7.5-500 MG ORAL TABLET take one po Q6 hours 201 09/12/01 HYDROCODONE-ACETAMINOPHEN 64939405837 No Longer Active Nirmal Robbins RN Active [facility] MELATONIN 5-10 MG ORAL TABLET EXTENDED RELEASE Jair e one by mouth daily at bedtime MELATONIN-PYRIDOXINE 57188851951 No Longer Acti ve Bertradn Patel DO Active VITAMIN E 200 UNIT ORAL CAPSULE 1 cap po qd VITAM IN E 05796999193 No Longer Active Bertrand Patel DO Active B-12 1000 MCG ORAL CAPSULE 1 tab daily CYANOCOB ALAMIN 03644208500 No Longer Active Bertrand Patel DO Active METFORMIN HCL 500 MG ORAL TABLET 1 bid METFOR MIN HCL 96934124382 No Longer Active Bertrand Patel DO Active FUROSEMIDE 20 MG ORAL TABLET 1 pill by mouth daily if needed for edema FUROSEMIDE 86223616688 No Longer Active Bertrand Patel DO Active PRAVASTATIN SODIUM 20 MG ORAL TABLET 1 tablet by mouth daily at bedtime PRAVASTATIN SODIUM 15212650323 No Longer Active Bertrand Patel DO Active AUGMENTIN 875-125 MG ORAL TABLET 1 pill by mouth twice daily 201 09/10/00 AMOXICILLIN-POT CLAVULANATE 57793689173 No Longer Active Yoli Mercado MD PhD Active LEVAQUIN 500 MG ORAL TABLET 1 pill by mouth daily 2013 LEVOFLOXACIN 03430953995 No Longer Active Yoli Mercado MD PhD Acti ve AMLODIPINE BESYLATE 5 MG ORAL TABLET 1 tablet by mouth daily for blood pressure AMLODIPINE BESYLATE 57466734193 Active Bertrand Patel DO Active MICARDIS 80 MG ORAL TABLET 1 tablet daily for blood pressure 07/30 TELMISARTAN 51623080552 Active Bertrand Patel DO Active MICARDIS HCT 80-12.5 MG ORAL TABLET 1 qd TELMISARTAN-HCTZ 15776603626 No Longer Active Bertrand Patel DO Active CINNAMON ALPHA LIPOIC AC CMPLX CAPSULE by mouth twice a day in AM by mouth twice a day in PM ALPHA LIPOIC [id number] CA PS 12348142478 No Longer Active Bertrand Patel DO Active AZITHROMYCIN 500 MG INTRAVENOUS SOLUTION RECONSTITUTED 1 po q da y AZITHROMYCIN 94814055308 No Longer Active Bertrand Patel DO A ctive CYMBALTA 30 MG ORAL CAPSULE DELAYED RELEASE PARTICLES 1 cap by mouth daily DULOXETINE HCL 42421363846 No Longer Active Bertrand marquez DO Active CYMBALTA 60 MG ORAL CAPSULE DELAYED RELEASE PARTICLES 1 cap by mouth daily DULOXETINE HCL 06404490467 Active Bertrand Patel DO Active WELLBUTRIN 75 MG ORAL TABLET 2 times daily BUPR OPION HCL 95924162389 No Longer Active Bertrand Patel DO Active PROAIR HFA 108 (90 Base) MCG/ACT INHALATION AEROSOL SO LUTION take one to two puffs po Q4-6 hour prn cough and shortness of breath ALBUTEROL SULFATE 74325107413 Active Bertrand Patel DO Active AZITHROMYCIN 250 MG ORAL TABLET take 2 po today then take 1 po days 2-5 AZITHROMYCIN 37565330300 No Longer Active Adolfo OSORIO Active PERMETHRIN 5 % EXTERNAL CREAM apply neck to toes tonig ht and then rinse off in morning. repeat at 7 days PERMETHRIN 37973921873 No Longer Active Adolfo OSORIO Active AMOXICILLIN 500 MG ORAL CAPSULE 2 po BID x 10 days 201 07/15/00 AMOXICILLIN 87579171480 No Longer Active Yoli Mercado MD PhD Acti ve ALPRAZOLAM 0.5 MG ORAL TABLET 1 tab by mouth tid ALPRAZOLAM 47189579911 Active Bertrand Patel DO Active INSUPEN ULTRAFIN 31G X 6 MM USE DIRECTED INSULIN PEN NEEDLE 73301534717 No Longer Active Bertrand Patel DO Active TRANSDERM-SCOP (1.5 MG) 1 MG/3DAYS TRANSDERMAL PATCH 7 2 HOUR 1 patch applied behind ear q 3 day SCOPOLAMINE BASE 20363022754 No Lo nger Active Bertrand Patel DO Active MACRODANTIN 100 MG ORAL CAPSULE one p.o. b.i.d. x2 weeks NITROFURANTOIN MACROCRYSTAL 23803456558 No Longer Active Bertrand Villasenor Jorge DO Active MACRODANTIN 100 MG ORAL CAPSULE one p.o. b.i.d. x2 weeks MACRODANTIN 100 MG ORAL CAPSULE 2966702 NITROFURANTOIN MACROCRYSTAL Inactive TRANSDERM-SCOP (1.5 MG) 1 [...] days PERMETHRIN 5 % EXTER NAL CREAM 395949 PERMETHRIN Inactive WELLBUTRIN 75 MG ORAL TABLET 2 times daily WELLBUTRIN 75 MG ORAL TABLET BUPROPION HCL Inactive CYMBALTA 30 MG ORAL CAPSULE DELAYED RELEASE PARTICLES 1 cap by mouth daily CYMBALTA 30 MG ORAL CAPSULE DELAYED RELE ASE PARTICLES 071183 DULOXETINE HCL Inactive AZITHROMYCIN 500 MG INTRAVENOUS SOLUTION RECONSTITUTED 1 po q da y AZITHROMYCIN 500 MG INTRAVENOUS SOLUTION RECONSTITUTED 07517 319200 AZITHROMYCIN Inactive CINNAMON ALPHA LIPOIC AC CMPLX CAPSULE by mouth twice a day in AM by mouth twice a day in PM CINNAMON ALPHA LIPOIC AC CMPLX CAPSULE ALPHA LIPOIC [id number] CAPS Inactive MICARDIS HCT 80-12.5 MG ORAL TABLET 1 qd 07/30 MICARDIS HCT 80-12.5 MG ORAL TABLET 326147 TELMISARTAN-HCTZ Inactive PRAVASTATIN SODIUM 20 MG ORAL TABLET 1 tablet by mouth daily at bedtime PRAVASTATIN SODIUM 20 MG ORAL TABLET 907446 PRAVASTATIN SODIUM Inactive FUROSEMIDE 20 MG ORAL TABLET 1 pill by mouth daily if needed for edema FUROSEMIDE 20 MG ORAL TABLET 420073 FUROSEMIDE Inactive METFORMIN HCL 500 MG ORAL TABLET 1 bid METFORMIN HCL 500 MG ORAL TABLET 596944 METFORMIN HCL Inactive B-12 1000 MCG ORAL CAPSULE 1 tab daily B -12 1000 MCG ORAL CAPSULE CYANOCOBALAMIN Inactive VITAMIN E 200 UNIT ORAL CAPSULE 1 cap po qd 1 VITAMIN E 200 UNIT ORAL CAPSULE 6265964 VITAMIN E Inactive [facility] MELATONIN 5-10 MG [...] po daily AZITHROMYCIN 250 MG ORAL TABLET 572303 AZITHROMY BERNARDO Inactive SYMBICORT 160-4.5 MCG/ACT INHALATION AEROSOL 2 puffs BID 9 SYMBICORT 160-4.5 MCG/ACT INHALATION AEROSOL BUDESONIDE-FORM OTEROL FUMARATE Inactive ALBUTEROL SULFATE (2.5 MG/3ML) 0.083% INHALATION NEBUL IZATION SOLUTION one vial per nebulizer every 4-6 hours as needed ALBUTEROL SULFATE (2.5 MG/3ML) 0.083% INHALATION NEBULIZATION SOLUTION 266678 ALBUTER OL SULFATE Inactive NEBULIZER use as directed NEBULIZER NEBULI ZERS Inactive TESSALON PERLES 100 MG ORAL CAPSULE 1 tablet by mouth 3 times da juan pablo TESSALON PERLES 100 MG ORAL CAPSULE 454070 BENZONATATE Inactive CYCLOBENZAPRINE HCL 10 MG ORAL TABLET Take 1 tab TID PRN for mus triston pain CYCLOBENZAPRINE HCL 10 MG ORAL TABLET 240811 CYCLOBENZA ANUJA HCL Inactive AUGMENTIN 875-125 MG ORAL TABLET 1 po BID x 10 days 20 18/04/06 AUGMENTIN 875-125 MG ORAL TABLET 655782 AMOXICILLIN-POT CLAVULANATE Inactive BACTROBAN 2 % EXTERNAL CREAM Apply to affected area BID for up to 10 days BACTROBAN 2 % EXTERNAL CREAM 155518 MUPIROCIN CA LCIUM Inactive VITAMIN D3 86512 UNIT ORAL CAPSULE 1 pill Week x 4 mo [facility] for vitamin D deficiency/osteoporosis VITAMIN D3 46378 UNIT ORAL CAPSULE CHOLECALCIFEROL Inactive BENZONATATE 200 MG ORAL CAPSULE 1 three times a day as neede d for cough BENZONATATE 200 MG ORAL CAPSULE 277194 BENZONATA TE Inactive ZITHROMAX Z-MARTIN 250 MG ORAL TABLET 2 today and then 1 daily for 4 days ZITHROMAX Z-MARTIN 250 MG ORAL TABLET 835394 AZITHR OMYCIN Inactive ADDERALL 10 MG ORAL TABLET 1 tab twice daily 2 ADDERALL 10 MG ORAL TABLET 182560 AMPHETAMINE-DEXTROAMPHETAMINE Inactive LEVAQUIN 500 MG ORAL TABLET 1 tablet by mouth daily 20 21/06/28 LEVAQUIN 500 MG ORAL TABLET 007265 LEVOFLOXACIN Inactive AMOXICILLIN 500 MG ORAL CAPSULE 2 po BID x 10 days 201 07/15/00 AMOXICILLIN 500 MG ORAL CAPSULE 828707 AMOXICILLIN Inactive AZITHROMYCIN 250 MG ORAL TABLET take 2 po today then take 1 po days 2-5 AZITHROMYCIN 250 MG ORAL TABLET 544466 AZITHROMY BERNARDO Inactive LEVAQUIN 500 MG ORAL TABLET 1 pill by mouth daily 2013 LEVAQUIN 500 MG ORAL TABLET 006795 LEVOFLOXACIN Inactive AUGMENTIN 875-125 MG ORAL TABLET 1 pill by mouth twice daily 201 09/10/00 AUGMENTIN 875-125 MG ORAL TABLET 090402 AMOXICILLIN-POT CLAVULANATE Inactive AUGMENTIN 875-125 MG ORAL TABLET 1 po BID x 10 days 20 19/07/13 AUGMENTIN 875-125 MG ORAL TABLET 403465 AMOXICILLIN-POT CLAVULANATE Inactive PREDNISONE 20 MG ORAL TABLET take 3 tabs daily for 3 d ays, 2 tabs daily for 3 days, 1 tab daily for 3 days, 1/2 tab daily for 3 days 08/02 PREDNISONE 20 MG ORAL TABLET 021628 PREDNISONE Inactive CIPRO 500 MG ORAL TABLET 1 tablet by mouth twice daily CIPRO 500 MG ORAL TABLET 550178 CIPROFLOXACIN HCL Inactive DOXYCYCLINE HYCLATE 100 MG ORAL CAPSULE 1 cap by mouth twice jong ly DOXYCYCLINE HYCLATE 100 MG ORAL CAPSULE 1326856 DOXYCYCL INE HYCLATE Inactive PREDNISONE 20 MG [...] weight E&M 348 [lb_av] Weight Measure d blood pressure, diastolic 84 mm[Hg] BP [place] blood pressure, systolic 130 mm[Hg] BP sys height E&M 65 [in_us] Bdy height pulse rate E&M 79 /min Heart rate temperature E&M 98.8 [degF] Body temp erature weight E&M 345 [lb_av] Weight Measure d Encounters Code Encounter Date Provider Facility CPT-18717 [id number] Vst-Est Level IV 14:46:36 RACE RELATIONS ADVISER Foster ce W [facility] CPT-39749 Level 3 Est. Patient 12:37:30 RACE RELATIONS ADVISER Galilea Se [facility]-78325 Level 3 Est. Patient 11:40:23 CDT Bertrand marquez [facility]-00472 Level 4 Est. Patient 15:33:35 RACE RELATIONS ADVISER Bertrand marquez [facility] CPT-82466 Level 4 Est. Patient 12:31:54 CDT Bertrand marquez [facility] CPT-49930 Level 3 Est. Patient 11:27:00 RACE RELATIONS ADVISER Ike Deluna MD [facility] CPT-25318 Level 3 Est. Patient 08:50:57 RACE RELATIONS ADVISER Silvia Are kalin [facility] CPT-85093 Level 3 Est. Patient 10:04:13 CDT Bertrand marquez [facility] CPT-89367 Level 4 Est. Patient 16:02:10 RACE RELATIONS ADVISER Silvia Are kalin [facility] CPT-47293 Level 3 Est. Patient 13:04:54 RACE RELATIONS ADVISER Silvia Are [facility] CPT-61288 Level 3 Est. Patient 12:56:37 CDT Bertrand marquez [facility] CPT-97585 Level 3 Est. Patient 19:12:03 CDT Yoli tolbert MD PhD [facility] CPT-12673 Level 3 Est. Patient 14:36:01 CDT Yoli tolbert MD PhD [facility] CPT-10330 Level 2 Est. Patient 08:00:22 CDT Jcarlos dc MD [facility] CPT-04260 Level 3 Est. Patient 19:06:55 CDT Bertrand marquez [facility] CPT-98482 Level 3 Est. Patient 10:08:23 RACE RELATIONS ADVISER Bertrand marquez [facility] CPT-92049 Level 3 Est. Patient 16:37:54 RACE RELATIONS ADVISER Bertrand marquez [facility] CPT-94411 Level 3 Est. Patient 11:31:59 RACE RELATIONS ADVISER Bertrand marquez [facility] CPT-41402 Level 3 Est. Patient 10:20:08 CDT Adolfo villasenor [facility] CPT-36483 Level 3 Est. Patient 13:45:20 CDT Sanket ubckley [facility] CPT-36661 Level 3 Est. Patient 12:51:06 CDT Adolfo villasenor [facility] CPT-99290 Level 3 Est. Patient 11:22:51 RACE RELATIONS ADVISER Yoli tolbert MD PhD [facility] CPT-60492 Level 3 Est. Patient 13:33:19 CDT Bertrand marquez [facility] Procedures Code Procedure Name Date Entry Date Standard Desc ription CPT-65197 Wound Culture - LAB USE ONLY 15:45:25 CDT 2 CPT-27500 Venipuncture Draw Fee 10:23:01 CDT CPT-J0696 Rocephin 1000 mg (Ceftriaxone) 16:20:30 RACE RELATIONS ADVISER CPT-01130 Abx/Therapy Injection 16:20:29 RACE RELATIONS ADVISER CPT-J0696 Rocephin 1gm Inj Solr 15:51:59 RACE RELATIONS ADVISER CPT-47361 Chest 2V Frontal and Lat 15:20:28 RACE RELATIONS ADVISER 07/22 CPT-19651 Breathing Tx 14:51:55 RACE RELATIONS ADVISER CPT-48392 Breathing Tx 09:57:16 RACE RELATIONS ADVISER CPT-09369 Knee comp 4/> V 11:58:06 RACE RELATIONS ADVISER
--- OUTSIDE RECORDS SUMMARY | 2019-11-13 09:53 | XMS REPORT | Clinical Summary ---
Author Author Admin, Enrique Adamson Organization [employer] Address Unknown Phone Unavailable Allergies, Adverse Reactions, [...] Patel DO Body Mass Index 50.0-59.9, adult SCABIES ICD-133.0 Inactive Yoli Mercado MD PhD 201 07/14/20 HEALTH SCREENING ICD-V70.0 Inactive Yoli sabillon MD PhD COUGH ICD-786.2 Inactive Yoli Mercado MD PhD 201 09/09/28 EDEMA LEG ICD-782.3 Inactive Adele Feldman CANCER REGISTRAR 201 01/01/02 SHORTNESS OF BREATH ICD-786.05 Inactive Yoli Mercado MD PhD RIB PAIN, RIGHT SIDED ICD-786.50 Inactive Yoli Mercado MD PhD KNEE PAIN, RIGHT ICD-719.46 Inactive Adele gilmoren CANCER REGISTRAR Knee pain, left ICD-719.46 Inactive Adele damico CANCER REGISTRAR Pharyngitis-Acute ICD-462 Inactive Bertrand Redmond DO Polyuria [...] Fatigue ICD-780.79 Inactive Adele Feldman LPN 2017 FH DIABETES ICD-V18.0 Inactive Yoli Mercado MD PhD 20 14/02/29 SINUSITIS, FRONTAL, ACUTE ICD-461.1 Inactive Yoli Mercado MD PhD Bronchitis acute with bronchospasm ICD-466.0 I nactive Bertrand Patel DO Animal bite ICD-919.8 Inactive Adele Chawla Mycoplasma infection ICD-041.81 Inactive Stephane Feldman LPN Amenorrhea, secondary ICD-626.0 Inactive Malindai quinton Feldman LPN Left maxillary sinusitis ICD-473.0 Inactive Bertrand Patel DO Medication List Medication Instructions Start Date Stop Date Generic Name NDC Status Provider Patient Instruction EVENING PRIMROSE OIL 1000 MG ORAL CAPSULE 1 capsule once daily EVENING PRIMROSE OIL [id number] Active Bertrand Patel DO Active LEVAQUIN 500 MG ORAL TABLET 1 tablet by mouth daily 21/06/28 LEVOFLOXACIN 87550890777 No Longer Active Bertrand Patel DO Active PREDNISONE 20 MG ORAL TABLET Take 3 tabs for 3 days, t hen 2 tabs for 3 days, then 1 tab for 3 days PREDNISONE 51594613851 No Rainer fatou Active Galilea Sell CLARIFIER OPERATOR Active DOXYCYCLINE HYCLATE 100 MG ORAL CAPSULE 1 cap by mouth twice jong ly DOXYCYCLINE HYCLATE 57603961804 No Longer Active Galilea Sell CLARIFIER OPERATOR Active ADDERALL 10 MG ORAL TABLET 1 tab twice daily 2 AMPHETAMINE-DEXTROAMPHETAMINE 92557077458 No Longer Active Nitza Phi llips Scribe Active ZITHROMAX Z-MARTIN 250 MG ORAL TABLET 2 today and then 1 daily for 4 days AZITHROMYCIN 21840843734 No Longer Active Nitza Osman lips Scribe Active BENZONATATE 200 MG ORAL CAPSULE 1 three times a day as neede d for cough BENZONATATE 87420096847 No Longer Active Nitza Osman lips Scribe Active VITAMIN D3 29148 UNIT ORAL CAPSULE 1 pill Week x 4 mo nths for vitamin D deficiency/osteoporosis CHOLECALCIFEROL 99692944274 N o Longer Active Layla Garcia Active BACTROBAN 2 % EXTERNAL CREAM Apply to affected area BID for up to 10 days MUPIROCIN CALCIUM 81438263766 No Longer Active Ike Deluna MD Active CIPRO 500 MG ORAL TABLET 1 tablet by mouth twice daily CIPROFLOXACIN HCL 72668194476 No Longer Active Adriana Bender LPN Active AUGMENTIN 875-125 MG ORAL TABLET 1 po BID x 10 days 18/04/06 AMOXICILLIN-POT CLAVULANATE 51017934267 No Longer Active Adriana Bender LPN Active MODAFINIL 200 MG ORAL TABLET Take 1/2 tab po in the am and 1 /2 tab po at noon MODAFINIL 48946911251 Active Bertrand Patel DO Ac tive CYCLOBENZAPRINE HCL 10 MG ORAL TABLET Take 1 tab TID PRN for mus triston pain CYCLOBENZAPRINE HCL 17921330263 No Longer Active Bertrand Patel DO Active TESSALON PERLES 100 MG ORAL CAPSULE 1 tablet by mouth 3 times da juan pablo BENZONATATE 07603105711 No Longer Active Bertrand Patel DO Ac tive NEBULIZER use as directed NEBULIZERS 40537826774 No Longer Active Bertrand Patel DO Active ALBUTEROL SULFATE (2.5 MG/3ML) 0.083% INHALATION NEBUL IZATION SOLUTION one vial per nebulizer every 4-6 hours as needed ALBUTERO L SULFATE 80972786824 No Longer Active Bertrand Patel DO Active SYMBICORT 160-4.5 MCG/ACT INHALATION AEROSOL 2 puffs BID 9 BUDESONIDE-FORMOTEROL FUMARATE 56236611551 No Longer Active Bertrand Patel DO Active PREDNISONE 20 MG ORAL TABLET take 3 tabs daily for 3 d ays, 2 tabs daily for 3 days, 1 tab daily for 3 days, 1/2 tab daily for 3 days 08/02 PREDNISONE 12405214734 No Longer Active Silvia Arekalin CLARIFIER OPERATOR Active AZITHROMYCIN 250 MG ORAL TABLET Take 2 tabs po today then 1 tab po daily AZITHROMYCIN 01390358350 No Longer Active Silvia Arell CLARIFIER OPERATOR Active AUGMENTIN 875-125 MG ORAL TABLET 1 po BID x 10 days 20 19/07/13 AMOXICILLIN-POT CLAVULANATE 75145178397 No Longer Active Adriana Bender CANCER REGISTRAR Active CHEWABLE CALCIUM 500-200-40 MG-UNT-MCG ORAL TABLET CHEWABLE 1 chew tab bid CALCIUM-VITAMIN D-VITAMIN K 02059869833 Active Silvia Are ll CLARIFIER OPERATOR Active EQ COMPLETE MULTIVIT ADULT 50+ ORAL TABLET 1 tab po bid MULTIPLE VITAMINS-MINERALS 86152123545 Active Silvia Arell CLARIFIER OPERATOR Active HYDROCODONE-ACETAMINOPHEN 7.5-325 MG ORAL TABLET TAKE ONE TAB EVERY 6 HOURS BY MOUTH NEEDED FOR PAIN HYDROCODONE-ACETAMINOPHEN 004 18697896 Active Bertrand Patel DO Active LORTAB 7.5-500 MG ORAL TABLET take one po Q6 hours 201 09/12/01 HYDROCODONE-ACETAMINOPHEN 26054262204 No Longer Active Nirmal Robbins RN Active [facility] MELATONIN 5-10 MG ORAL TABLET EXTENDED RELEASE Jair e one by mouth daily at bedtime MELATONIN-PYRIDOXINE 65602762577 No Longer Acti ve eBrtrand Patel DO Active VITAMIN E 200 UNIT ORAL CAPSULE 1 cap po qd VITAM IN E 78041606876 No Longer Active Bertrand Patel DO Active B-12 1000 MCG ORAL CAPSULE 1 tab daily CYANOCOB ALAMIN 83110176251 No Longer Active Bertrand Patel DO Active METFORMIN HCL 500 MG ORAL TABLET 1 bid METFOR MIN HCL 25091482751 No Longer Active Bertrand Patel DO Active FUROSEMIDE 20 MG ORAL TABLET 1 pill by mouth daily if needed for edema FUROSEMIDE 98977540939 No Longer Active Bertrand Patel DO Active PRAVASTATIN SODIUM 20 MG ORAL TABLET 1 tablet by mouth daily at bedtime PRAVASTATIN SODIUM 50638048148 No Longer Active Bertrand Patel DO Active AUGMENTIN 875-125 MG ORAL TABLET 1 pill by mouth twice daily 201 09/10/00 AMOXICILLIN-POT CLAVULANATE 73052395306 No Longer Active Yoli Mercado MD PhD Active LEVAQUIN 500 MG ORAL TABLET 1 pill by mouth daily 2013 LEVOFLOXACIN 70559190125 No Longer Active Yoli Mercado MD PhD Acti ve AMLODIPINE BESYLATE 5 MG ORAL TABLET 1 tablet by mouth daily for blood pressure AMLODIPINE BESYLATE 77238282981 Active Bertrand Patel DO Active MICARDIS 80 MG ORAL TABLET 1 tablet daily for blood pressure 07/30 TELMISARTAN 53405662491 Active Bertrand Patel DO Active MICARDIS HCT 80-12.5 MG ORAL TABLET 1 qd TELMISARTAN-HCTZ 51990567020 No Longer Active Bertrand Patel DO Active CINNAMON ALPHA LIPOIC AC CMPLX CAPSULE by mouth twice a day in AM by mouth twice a day in PM ALPHA LIPOIC [id number] CA PS 39583891248 No Longer Active Bertrand Patel DO Active AZITHROMYCIN 500 MG INTRAVENOUS SOLUTION RECONSTITUTED 1 po q da y AZITHROMYCIN 66317026816 No Longer Active Bertrand Patel DO A ctive CYMBALTA 30 MG ORAL CAPSULE DELAYED RELEASE PARTICLES 1 cap by mouth daily DULOXETINE HCL 60136827347 No Longer Active Bertrand marquez DO Active CYMBALTA 60 MG ORAL CAPSULE DELAYED RELEASE PARTICLES 1 cap by mouth daily DULOXETINE HCL 52879557947 Active Bertrand Patel DO Active WELLBUTRIN 75 MG ORAL TABLET 2 times daily BUPR OPION HCL 78160052870 No Longer Active Bertrand Patel DO Active PROAIR HFA 108 (90 Base) MCG/ACT INHALATION AEROSOL SO LUTION take one to two puffs po Q4-6 hour prn cough and shortness of breath ALBUTEROL SULFATE 51975904995 Active Bertrand Patel DO Active AZITHROMYCIN 250 MG ORAL TABLET take 2 po today then take 1 po days 2-5 AZITHROMYCIN 23513930455 No Longer Active Adolfo OSORIO Active PERMETHRIN 5 % EXTERNAL CREAM apply neck to toes tonig ht and then rinse off in morning. repeat at 7 days PERMETHRIN 23369538265 No Longer Active Adolfo OSORIO Active AMOXICILLIN 500 MG ORAL CAPSULE 2 po BID x 10 days 201 07/15/00 AMOXICILLIN 46846635849 No Longer Active Yoli Mercado MD PhD Acti ve ALPRAZOLAM 0.5 MG ORAL TABLET 1 tab by mouth tid ALPRAZOLAM 14887592315 Active Bertrand Patel DO Active INSUPEN ULTRAFIN 31G X 6 MM USE DIRECTED INSULIN PEN NEEDLE 22313558985 No Longer Active Bertrand Patel DO Active TRANSDERM-SCOP (1.5 MG) 1 MG/3DAYS TRANSDERMAL PATCH 7 2 HOUR 1 patch applied behind ear q 3 day SCOPOLAMINE BASE 80410020580 No Lo nger Active Bertrand Patel DO Active MACRODANTIN 100 MG ORAL CAPSULE one p.o. b.i.d. x2 weeks NITROFURANTOIN MACROCRYSTAL 02736541133 No Longer Active Bertrand Villasenor Jorge DO Active MACRODANTIN 100 MG ORAL CAPSULE one p.o. b.i.d. x2 weeks MACRODANTIN 100 MG ORAL CAPSULE 1213479 NITROFURANTOIN MACROCRYSTAL Inactive TRANSDERM-SCOP (1.5 MG) 1 [...] days PERMETHRIN 5 % EXTER NAL CREAM 385431 PERMETHRIN Inactive WELLBUTRIN 75 MG ORAL TABLET 2 times daily WELLBUTRIN 75 MG ORAL TABLET BUPROPION HCL Inactive CYMBALTA 30 MG ORAL CAPSULE DELAYED RELEASE PARTICLES 1 cap by mouth daily CYMBALTA 30 MG ORAL CAPSULE DELAYED RELE ASE PARTICLES 600084 DULOXETINE HCL Inactive AZITHROMYCIN 500 MG INTRAVENOUS SOLUTION RECONSTITUTED 1 po q da y AZITHROMYCIN 500 MG INTRAVENOUS SOLUTION RECONSTITUTED 98739 132899 AZITHROMYCIN Inactive CINNAMON ALPHA LIPOIC AC CMPLX CAPSULE by mouth twice a day in AM by mouth twice a day in PM CINNAMON ALPHA LIPOIC AC CMPLX CAPSULE ALPHA LIPOIC [id number] CAPS Inactive MICARDIS HCT 80-12.5 MG ORAL TABLET 1 qd 07/30 MICARDIS HCT 80-12.5 MG ORAL TABLET 057923 TELMISARTAN-HCTZ Inactive PRAVASTATIN SODIUM 20 MG ORAL TABLET 1 tablet by mouth daily at bedtime PRAVASTATIN SODIUM 20 MG ORAL TABLET 648951 PRAVASTATIN SODIUM Inactive FUROSEMIDE 20 MG ORAL TABLET 1 pill by mouth daily if needed for edema FUROSEMIDE 20 MG ORAL TABLET 232678 FUROSEMIDE Inactive METFORMIN HCL 500 MG ORAL TABLET 1 bid METFORMIN HCL 500 MG ORAL TABLET 556378 METFORMIN HCL Inactive B-12 1000 MCG ORAL CAPSULE 1 tab daily B -12 1000 MCG ORAL CAPSULE CYANOCOBALAMIN Inactive VITAMIN E 200 UNIT ORAL CAPSULE 1 cap po qd 1 VITAMIN E 200 UNIT ORAL CAPSULE 4335134 VITAMIN E Inactive [facility] MELATONIN 5-10 MG [...] po daily AZITHROMYCIN 250 MG ORAL TABLET 071105 AZITHROMY BERNARDO Inactive SYMBICORT 160-4.5 MCG/ACT INHALATION AEROSOL 2 puffs BID 9 SYMBICORT 160-4.5 MCG/ACT INHALATION AEROSOL BUDESONIDE-FORM OTEROL FUMARATE Inactive ALBUTEROL SULFATE (2.5 MG/3ML) 0.083% INHALATION NEBUL IZATION SOLUTION one vial per nebulizer every 4-6 hours as needed ALBUTEROL SULFATE (2.5 MG/3ML) 0.083% INHALATION NEBULIZATION SOLUTION 233390 ALBUTER OL SULFATE Inactive NEBULIZER use as directed NEBULIZER NEBULI ZERS Inactive TESSALON PERLES 100 MG ORAL CAPSULE 1 tablet by mouth 3 times da juan pablo TESSALON PERLES 100 MG ORAL CAPSULE 338105 BENZONATATE Inactive CYCLOBENZAPRINE HCL 10 MG ORAL TABLET Take 1 tab TID PRN for mus triston pain CYCLOBENZAPRINE HCL 10 MG ORAL TABLET 441453 CYCLOBENZA ANUJA HCL Inactive AUGMENTIN 875-125 MG ORAL TABLET 1 po BID x 10 days 20 18/04/06 AUGMENTIN 875-125 MG ORAL TABLET 434928 AMOXICILLIN-POT CLAVULANATE Inactive BACTROBAN 2 % EXTERNAL CREAM Apply to affected area BID for up to 10 days BACTROBAN 2 % EXTERNAL CREAM 726098 MUPIROCIN CA LCIUM Inactive VITAMIN D3 21006 UNIT ORAL CAPSULE 1 pill Week x 4 mo [facility] for vitamin D deficiency/osteoporosis VITAMIN D3 15010 UNIT ORAL CAPSULE CHOLECALCIFEROL Inactive BENZONATATE 200 MG ORAL CAPSULE 1 three times a day as neede d for cough BENZONATATE 200 MG ORAL CAPSULE 328197 BENZONATA TE Inactive ZITHROMAX Z-MARTIN 250 MG ORAL TABLET 2 today and then 1 daily for 4 days ZITHROMAX Z-MARTIN 250 MG ORAL TABLET 948096 AZITHR OMYCIN Inactive ADDERALL 10 MG ORAL TABLET 1 tab twice daily 2 ADDERALL 10 MG ORAL TABLET 242550 AMPHETAMINE-DEXTROAMPHETAMINE Inactive LEVAQUIN 500 MG ORAL TABLET 1 tablet by mouth daily 20 21/06/28 LEVAQUIN 500 MG ORAL TABLET 391224 LEVOFLOXACIN Inactive AMOXICILLIN 500 MG ORAL CAPSULE 2 po BID x 10 days 201 07/15/00 AMOXICILLIN 500 MG ORAL CAPSULE 793542 AMOXICILLIN Inactive AZITHROMYCIN 250 MG ORAL TABLET take 2 po today then take 1 po days 2-5 AZITHROMYCIN 250 MG ORAL TABLET 675640 AZITHROMY BERNARDO Inactive LEVAQUIN 500 MG ORAL TABLET 1 pill by mouth daily 2013 LEVAQUIN 500 MG ORAL TABLET 006780 LEVOFLOXACIN Inactive AUGMENTIN 875-125 MG ORAL TABLET 1 pill by mouth twice daily 201 09/10/00 AUGMENTIN 875-125 MG ORAL TABLET 505007 AMOXICILLIN-POT CLAVULANATE Inactive AUGMENTIN 875-125 MG ORAL TABLET 1 po BID x 10 days 20 19/07/13 AUGMENTIN 875-125 MG ORAL TABLET 273540 AMOXICILLIN-POT CLAVULANATE Inactive PREDNISONE 20 MG ORAL TABLET take 3 tabs daily for 3 d ays, 2 tabs daily for 3 days, 1 tab daily for 3 days, 1/2 tab daily for 3 days 08/02 PREDNISONE 20 MG ORAL TABLET 796631 PREDNISONE Inactive CIPRO 500 MG ORAL TABLET 1 tablet by mouth twice daily CIPRO 500 MG ORAL TABLET 023969 CIPROFLOXACIN HCL Inactive DOXYCYCLINE HYCLATE 100 MG ORAL CAPSULE 1 cap by mouth twice jong ly DOXYCYCLINE HYCLATE 100 MG ORAL CAPSULE 8217929 DOXYCYCL INE HYCLATE Inactive PREDNISONE 20 MG [...] d Encounters Code Encounter Date Provider Facility CPT-35207 [id number] Vst-Est Level IV 14:46:36 IMMUNOLOGY TEACHER Foster ce W Jorge [facility] CPT-44498 Level 3 Est. Patient 12:37:30 IMMUNOLOGY TEACHER Galilea Se [facility]-82333 Level 3 Est. Patient 11:40:23 CDT Bertrand marquez [facility]-40239 Level 4 Est. Patient 15:33:35 IMMUNOLOGY TEACHER Bertradn marquez [facility] CPT-81055 Level 4 Est. Patient 12:31:54 CDT Bertrand marquez [facility] CPT-55681 Level 3 Est. Patient 11:27:00 IMMUNOLOGY TEACHER Ike Deluna MD [facility] CPT-61273 Level 3 Est. Patient 08:50:57 IMMUNOLOGY TEACHER Silvia Are kalin [facility] CPT-53477 Level 3 Est. Patient 10:04:13 CDT Bertrand marquez [facility] CPT-48994 Level 4 Est. Patient 16:02:10 IMMUNOLOGY TEACHER Silvia Are kalin [facility] CPT-54986 Level 3 Est. Patient 13:04:54 IMMUNOLOGY TEACHER Silvia Are [facility] CPT-42865 Level 3 Est. Patient 12:56:37 CDT Bertrand marquez [facility] CPT-83098 Level 3 Est. Patient 19:12:03 CDT Yoli tolbert MD PhD [facility] CPT-40872 Level 3 Est. Patient 14:36:01 CDT Yoli tolbert MD PhD [facility] CPT-76604 Level 2 Est. Patient 08:00:22 CDT Jcarlos dc MD [facility] CPT-51961 Level 3 Est. Patient 19:06:55 CDT Bertrand marquez [facility] CPT-85657 Level 3 Est. Patient 10:08:23 IMMUNOLOGY TEACHER Bertrand marquez [facility] CPT-93890 Level 3 Est. Patient 16:37:54 IMMUNOLOGY TEACHER Bertrand marquez [facility] CPT-52401 Level 3 Est. Patient 11:31:59 IMMUNOLOGY TEACHER Bertrand marquez [facility] CPT-06072 Level 3 Est. Patient 10:20:08 CDT Adolfo villasenor [facility] CPT-32572 Level 3 Est. Patient 13:45:20 CDT Sanket buckley [facility] CPT-72678 Level 3 Est. Patient 12:51:06 CDT Adolfo villasenor [facility] CPT-20101 Level 3 Est. Patient 11:22:51 IMMUNOLOGY TEACHER Yoli tolbert MD PhD [facility] CPT-41815 Level 3 Est. Patient 13:33:19 CDT Bertrand marquez [facility] Procedures Code Procedure Name Date Entry Date Standard Desc ription CPT-23663 Wound Culture - LAB USE ONLY 15:45:25 CDT 2 CPT-11840 Venipuncture Draw Fee 10:23:01 CDT CPT-J0696 Rocephin 1000 mg (Ceftriaxone) 16:20:30 IMMUNOLOGY TEACHER CPT-70111 Abx/Therapy Injection 16:20:29 IMMUNOLOGY TEACHER CPT-J0696 Rocephin 1gm Inj Solr 15:51:59 IMMUNOLOGY TEACHER CPT-06461 Chest 2V Frontal and Lat 15:20:28 IMMUNOLOGY TEACHER 07/22 CPT-59389 Breathing Tx 14:51:55 IMMUNOLOGY TEACHER CPT-19955 Breathing Tx 09:57:16 IMMUNOLOGY TEACHER CPT-57892 Knee comp 4/> V 11:58:06 IMMUNOLOGY TEACHER
--- OUTSIDE RECORDS SUMMARY | 2019-11-13 09:53 | XMS REPORT | Clinical Summary ---
Author Author Admin, Enrique Adamson Organization [facility] [employer] [facility] Address Unknown Phone Unavailable Allergies, Adverse Reactions, [...] 09/09/28 EDEMA LEG ICD-782.3 Inactive Adele Feldman HARP MAKER 201 01/01/02 SHORTNESS OF BREATH ICD-786.05 Inactive [...] 1 capsule once daily EVENING PRIMROSE OIL 67193763386 Active Bertrand Patel DO Active LEVAQUIN 500 MG ORAL TABLET 1 tablet by mouth daily 21/06/28 LEVOFLOXACIN 56570657080 No Longer Active Bertrand Patel DO Active PREDNISONE 20 MG ORAL TABLET Take 3 tabs for 3 days, t hen 2 tabs for 3 days, then 1 tab for 3 days PREDNISONE 34303280022 No Rainer fatou Active Galilea Sell 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 MILLING 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 Active DOXYCYCLINE HYCLATE 100 MG ORAL CAPSULE 1 cap by mouth twice jong ly DOXYCYCLINE HYCLATE 12691082190 No Longer Active Galilea Sell 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 MILLING 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 Active ADDERALL 10 MG ORAL TABLET 1 tab twice daily 2 AMPHETAMINE-DEXTROAMPHETAMINE 77735381896 No Longer Active Nitza Phi llips Scribe Active ZITHROMAX Z-MARTIN 250 MG ORAL TABLET 2 today and then 1 daily for 4 days AZITHROMYCIN 10762704543 No Longer Active Nitza Osman lips Scribe Active BENZONATATE 200 MG ORAL CAPSULE 1 three times a day as neede d for cough BENZONATATE 11654872447 No Longer Active Nitza Osman lips Scribe Active VITAMIN D3 21688 UNIT ORAL CAPSULE 1 pill Week x 4 mo nths for vitamin D deficiency/osteoporosis CHOLECALCIFEROL 26663491851 N o Longer Active Layla Garcia Active BACTROBAN 2 % EXTERNAL CREAM Apply to affected area BID for up to 10 days MUPIROCIN CALCIUM 61113219146 No Longer Active Ike Deluna MD Active CIPRO 500 MG ORAL TABLET 1 tablet by mouth twice daily CIPROFLOXACIN HCL 44975466783 No Longer Active Adriana Bender LPN Active AUGMENTIN 875-125 MG ORAL TABLET 1 po BID x 10 days 18/04/06 AMOXICILLIN-POT CLAVULANATE 32761357860 No Longer Active Adriana Bender LPN Active MODAFINIL 200 MG ORAL TABLET Take 1/2 tab po in the am and 1 /2 tab po at noon MODAFINIL 01739138049 Active Bertrand Patel DO Ac tive CYCLOBENZAPRINE HCL 10 MG ORAL TABLET Take 1 tab TID PRN for mus triston pain CYCLOBENZAPRINE HCL 28838813000 No Longer Active Bertrand Patel DO Active TESSALON PERLES 100 MG ORAL CAPSULE 1 tablet by mouth 3 times da juan pablo BENZONATATE 11802739513 No Longer Active Bertrand Patel DO Ac tive NEBULIZER use as directed NEBULIZERS 25236670173 No Longer Active Bertrand Patel DO Active ALBUTEROL SULFATE (2.5 MG/3ML) 0.083% INHALATION NEBUL IZATION SOLUTION one vial per nebulizer every 4-6 hours as needed ALBUTERO L SULFATE 26737771190 No Longer Active Bertrand Patel DO Active SYMBICORT 160-4.5 MCG/ACT INHALATION AEROSOL 2 puffs BID 9 BUDESONIDE-FORMOTEROL FUMARATE 76318889878 No Longer Active Bertrand Patel DO Active PREDNISONE 20 MG ORAL TABLET take 3 tabs daily for 3 d ays, 2 tabs daily for 3 days, 1 tab daily for 3 days, 1/2 tab daily for 3 days 08/02 PREDNISONE 15899878199 No Longer Active Silvia Arekalin METAL MILLING 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 Active AZITHROMYCIN 250 MG ORAL TABLET Take 2 tabs po today then 1 tab po daily AZITHROMYCIN 73654670209 No Longer Active Silvia Arell METAL MILLING 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 Active AUGMENTIN 875-125 MG ORAL TABLET 1 po BID x 10 days 20 19/07/13 AMOXICILLIN-POT CLAVULANATE 27038185866 No Longer Active Adriana Bender HARP MAKER Active CHEWABLE CALCIUM 500-200-40 MG-UNT-MCG ORAL TABLET CHEWABLE 1 chew tab bid CALCIUM-VITAMIN D-VITAMIN K 04216141421 Active Silvia Are ll METAL MILLING 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 Active EQ COMPLETE MULTIVIT ADULT 50+ ORAL TABLET 1 tab po bid MULTIPLE VITAMINS-MINERALS 09993035161 Active Silvia Arell METAL MILLING 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 Active HYDROCODONE-ACETAMINOPHEN 7.5-325 MG ORAL TABLET TAKE ONE TAB EVERY 6 HOURS BY MOUTH NEEDED FOR PAIN HYDROCODONE-ACETAMINOPHEN 004 77592996 Active Bertrand Patel DO Active LORTAB 7.5-500 MG ORAL TABLET take one po Q6 hours 201 09/12/01 HYDROCODONE-ACETAMINOPHEN 17416039680 No Longer Active Nirmal Robbins RN Active [facility] MELATONIN 5-10 MG ORAL TABLET EXTENDED RELEASE Jair e one by mouth daily at bedtime MELATONIN-PYRIDOXINE 06506491617 No Longer Acti ve Bertrand Patel DO Active VITAMIN E 200 UNIT ORAL CAPSULE 1 cap po qd VITAM IN E 82377627737 No Longer Active Bertrand Patel DO Active B-12 1000 MCG ORAL CAPSULE 1 tab daily CYANOCOB ALAMIN 50460018381 No Longer Active Bertrand Patel DO Active METFORMIN HCL 500 MG ORAL TABLET 1 bid METFOR MIN HCL 63932888654 No Longer Active Bertrand Patel DO Active FUROSEMIDE 20 MG ORAL TABLET 1 pill by mouth daily if needed for edema FUROSEMIDE 24798063355 No Longer Active Bertrand Patel DO Active PRAVASTATIN SODIUM 20 MG ORAL TABLET 1 tablet by mouth daily at bedtime PRAVASTATIN SODIUM 93515640874 No Longer Active Bertrand Patel DO Active AUGMENTIN 875-125 MG ORAL TABLET 1 pill by mouth twice daily 201 09/10/00 AMOXICILLIN-POT CLAVULANATE 78649337740 No Longer Active Yoli Mercado MD PhD Active LEVAQUIN 500 MG ORAL TABLET 1 pill by mouth daily 2013 LEVOFLOXACIN 33524999811 No Longer Active Yoli Mercado MD PhD Acti ve AMLODIPINE BESYLATE 5 MG ORAL TABLET 1 tablet by mouth daily for blood pressure AMLODIPINE BESYLATE 59080918990 Active Bertrand Patel DO Active MICARDIS 80 MG ORAL TABLET 1 tablet daily for blood pressure 07/30 TELMISARTAN 76110294216 Active Bertrand Patel DO Active MICARDIS HCT 80-12.5 MG ORAL TABLET 1 qd TELMISARTAN-HCTZ 74316937041 No Longer Active Bertrand Patel DO Active CINNAMON ALPHA LIPOIC AC CMPLX CAPSULE by mouth twice a day in AM by mouth twice a day in PM ALPHA LIPOIC [id number] CA PS 86033564739 No Longer Active Bertrand Patel DO Active AZITHROMYCIN 500 MG INTRAVENOUS SOLUTION RECONSTITUTED 1 po q da y AZITHROMYCIN 79025947395 No Longer Active Bertrand Patel DO A ctive CYMBALTA 30 MG ORAL CAPSULE DELAYED RELEASE PARTICLES 1 cap by mouth daily DULOXETINE HCL 68435537800 No Longer Active Bertrand marquez DO Active CYMBALTA 60 MG ORAL CAPSULE DELAYED RELEASE PARTICLES 1 cap by mouth daily DULOXETINE HCL 54907725852 Active Bertrand Patel DO Active WELLBUTRIN 75 MG ORAL TABLET 2 times daily BUPR OPION HCL 19361879083 No Longer Active Bertrand Patel DO Active PROAIR HFA 108 (90 Base) MCG/ACT INHALATION AEROSOL SO LUTION take one to two puffs po Q4-6 hour prn cough and shortness of breath ALBUTEROL SULFATE 23025963554 Active Bertrand Patel DO Active AZITHROMYCIN 250 MG ORAL TABLET take 2 po today then take 1 po days 2-5 AZITHROMYCIN 01069222017 No Longer Active Adolfo OSORIO Active PERMETHRIN 5 % EXTERNAL CREAM apply neck to toes tonig ht and then rinse off in morning. repeat at 7 days PERMETHRIN 71783332332 No Longer Active Adolfo OSORIO Active AMOXICILLIN 500 MG ORAL CAPSULE 2 po BID x 10 days 201 07/15/00 AMOXICILLIN 45695198565 No Longer Active Yoli Mercado MD PhD Acti ve ALPRAZOLAM 0.5 MG ORAL TABLET 1 tab by mouth tid ALPRAZOLAM 13037022407 Active Bertrand Patel DO Active INSUPEN ULTRAFIN 31G X 6 MM USE DIRECTED INSULIN PEN NEEDLE 59982790117 No Longer Active Bertrand Patel DO Active TRANSDERM-SCOP (1.5 MG) 1 MG/3DAYS TRANSDERMAL PATCH 7 2 HOUR 1 patch applied behind ear q 3 day SCOPOLAMINE BASE 03232446985 No Lo nger Active Bertrand Patel DO Active MACRODANTIN 100 MG ORAL CAPSULE one p.o. b.i.d. x2 weeks NITROFURANTOIN MACROCRYSTAL 95427541310 No Longer Active Bertrand Villasenor Jorge DO Active MACRODANTIN 100 MG ORAL CAPSULE one p.o. b.i.d. x2 weeks MACRODANTIN 100 MG ORAL CAPSULE 3435857 NITROFURANTOIN MACROCRYSTAL Inactive TRANSDERM-SCOP (1.5 MG) 1 [...] days PERMETHRIN 5 % EXTER NAL CREAM 547813 PERMETHRIN Inactive WELLBUTRIN 75 MG ORAL TABLET 2 times daily WELLBUTRIN 75 MG ORAL TABLET BUPROPION HCL Inactive CYMBALTA 30 MG ORAL CAPSULE DELAYED RELEASE PARTICLES 1 cap by mouth daily CYMBALTA 30 MG ORAL CAPSULE DELAYED RELE ASE PARTICLES 163779 DULOXETINE HCL Inactive AZITHROMYCIN 500 MG INTRAVENOUS SOLUTION RECONSTITUTED 1 po q da y AZITHROMYCIN 500 MG INTRAVENOUS SOLUTION RECONSTITUTED 96103 771948 AZITHROMYCIN Inactive CINNAMON ALPHA LIPOIC AC CMPLX CAPSULE by mouth twice a day in AM by mouth twice a day in PM CINNAMON ALPHA LIPOIC AC CMPLX CAPSULE ALPHA LIPOIC [id number] CAPS Inactive MICARDIS HCT 80-12.5 MG ORAL TABLET 1 qd 07/30 MICARDIS HCT 80-12.5 MG ORAL TABLET 016709 TELMISARTAN-HCTZ Inactive PRAVASTATIN SODIUM 20 MG ORAL TABLET 1 tablet by mouth daily at bedtime PRAVASTATIN SODIUM 20 MG ORAL TABLET 099694 PRAVASTATIN SODIUM Inactive FUROSEMIDE 20 MG ORAL TABLET 1 pill by mouth daily if needed for edema FUROSEMIDE 20 MG ORAL TABLET 260035 FUROSEMIDE Inactive METFORMIN HCL 500 MG ORAL TABLET 1 bid METFORMIN HCL 500 MG ORAL TABLET 534417 METFORMIN HCL Inactive B-12 1000 MCG ORAL CAPSULE 1 tab daily B -12 1000 MCG ORAL CAPSULE CYANOCOBALAMIN Inactive VITAMIN E 200 UNIT ORAL CAPSULE 1 cap po qd 1 VITAMIN E 200 UNIT ORAL CAPSULE 3017207 VITAMIN E Inactive [facility] MELATONIN 5-10 MG [...] po daily AZITHROMYCIN 250 MG ORAL TABLET 325515 AZITHROMY BERNARDO Inactive SYMBICORT 160-4.5 MCG/ACT INHALATION AEROSOL 2 puffs BID 9 SYMBICORT 160-4.5 MCG/ACT INHALATION AEROSOL BUDESONIDE-FORM OTEROL FUMARATE Inactive ALBUTEROL SULFATE (2.5 MG/3ML) 0.083% INHALATION NEBUL IZATION SOLUTION one vial per nebulizer every 4-6 hours as needed ALBUTEROL SULFATE (2.5 MG/3ML) 0.083% INHALATION NEBULIZATION SOLUTION 302748 ALBUTER OL SULFATE Inactive NEBULIZER use as directed NEBULIZER NEBULI ZERS Inactive TESSALON PERLES 100 MG ORAL CAPSULE 1 tablet by mouth 3 times da juan pablo TESSALON PERLES 100 MG ORAL CAPSULE 860163 BENZONATATE Inactive CYCLOBENZAPRINE HCL 10 MG ORAL TABLET Take 1 tab TID PRN for mus triston pain CYCLOBENZAPRINE HCL 10 MG ORAL TABLET 177242 CYCLOBENZA ANUJA HCL Inactive AUGMENTIN 875-125 MG ORAL TABLET 1 po BID x 10 days 20 18/04/06 AUGMENTIN 875-125 MG ORAL TABLET 352162 AMOXICILLIN-POT CLAVULANATE Inactive BACTROBAN 2 % EXTERNAL CREAM Apply to affected area BID for up to 10 days BACTROBAN 2 % EXTERNAL CREAM 193364 MUPIROCIN CA LCIUM Inactive VITAMIN D3 07665 UNIT ORAL CAPSULE 1 pill Week x 4 mo [facility] for vitamin D deficiency/osteoporosis VITAMIN D3 82672 UNIT ORAL CAPSULE CHOLECALCIFEROL Inactive BENZONATATE 200 MG ORAL CAPSULE 1 three times a day as neede d for cough BENZONATATE 200 MG ORAL CAPSULE 830963 BENZONATA TE Inactive ZITHROMAX Z-MARTIN 250 MG ORAL TABLET 2 today and then 1 daily for 4 days ZITHROMAX Z-MARTIN 250 MG ORAL TABLET 820402 AZITHR OMYCIN Inactive ADDERALL 10 MG ORAL TABLET 1 tab twice daily 2 ADDERALL 10 MG ORAL TABLET 066569 AMPHETAMINE-DEXTROAMPHETAMINE Inactive LEVAQUIN 500 MG ORAL TABLET 1 tablet by mouth daily 20 21/06/28 LEVAQUIN 500 MG ORAL TABLET 633248 LEVOFLOXACIN Inactive AMOXICILLIN 500 MG ORAL CAPSULE 2 po BID x 10 days 201 07/15/00 AMOXICILLIN 500 MG ORAL CAPSULE 974561 AMOXICILLIN Inactive AZITHROMYCIN 250 MG ORAL TABLET take 2 po today then take 1 po days 2-5 AZITHROMYCIN 250 MG ORAL TABLET 107005 AZITHROMY BERNARDO Inactive LEVAQUIN 500 MG ORAL TABLET 1 pill by mouth daily 2013 LEVAQUIN 500 MG ORAL TABLET 448277 LEVOFLOXACIN Inactive AUGMENTIN 875-125 MG ORAL TABLET 1 pill by mouth twice daily 201 09/10/00 AUGMENTIN 875-125 MG ORAL TABLET 646954 AMOXICILLIN-POT CLAVULANATE Inactive AUGMENTIN 875-125 MG ORAL TABLET 1 po BID x 10 days 20 19/07/13 AUGMENTIN 875-125 MG ORAL TABLET 972995 AMOXICILLIN-POT CLAVULANATE Inactive PREDNISONE 20 MG ORAL TABLET take 3 tabs daily for 3 d ays, 2 tabs daily for 3 days, 1 tab daily for 3 days, 1/2 tab daily for 3 days 08/02 PREDNISONE 20 MG ORAL TABLET 751212 PREDNISONE Inactive CIPRO 500 MG ORAL TABLET 1 tablet by mouth twice daily CIPRO 500 MG ORAL TABLET 069005 CIPROFLOXACIN HCL Inactive DOXYCYCLINE HYCLATE 100 MG ORAL CAPSULE 1 cap by mouth twice jong ly DOXYCYCLINE HYCLATE 100 MG ORAL CAPSULE 3237044 DOXYCYCL INE HYCLATE Inactive PREDNISONE 20 MG [...] d Encounters Code Encounter Date Provider Facility CPT-90224 [id number] Vst-Est Level IV 14:46:36 GOLF PROFESSIONAL Foster ce W Jorge [facility] CPT-77761 Level 3 Est. Patient 12:37:30 GOLF PROFESSIONAL Galilea Se [facility]-94839 Level 3 Est. Patient 11:40:23 CDT Bertrand marquez [facility]-88344 Level 4 Est. Patient 15:33:35 GOLF PROFESSIONAL Bertrand marquez [facility] CPT-05739 Level 4 Est. Patient 12:31:54 CDT Bertrand marquez [facility] CPT-44067 Level 3 Est. Patient 11:27:00 GOLF PROFESSIONAL Ike Deluna MD [facility] CPT-07565 Level 3 Est. Patient 08:50:57 GOLF PROFESSIONAL Silvia Are kalin [facility] CPT-27521 Level 3 Est. Patient 10:04:13 CDT Bertrand marquez [facility] CPT-40151 Level 4 Est. Patient 16:02:10 GOLF PROFESSIONAL Silvia Are kalin [facility] CPT-22482 Level 3 Est. Patient 13:04:54 GOLF PROFESSIONAL Silvia Are [facility] CPT-53601 Level 3 Est. Patient 12:56:37 CDT Bertrand marquez [facility] CPT-47825 Level 3 Est. Patient 19:12:03 CDT Yoli tolbert MD PhD [facility] CPT-79129 Level 3 Est. Patient 14:36:01 CDT Yoli tolbert MD PhD [facility] CPT-91326 Level 2 Est. Patient 08:00:22 CDT Jcarlos dc MD [facility] CPT-74516 Level 3 Est. Patient 19:06:55 CDT Bertrand marquez [facility] CPT-46040 Level 3 Est. Patient 10:08:23 GOLF PROFESSIONAL Bertrand marquez [facility] CPT-21803 Level 3 Est. Patient 16:37:54 GOLF PROFESSIONAL Bertrand marquez [facility] CPT-73948 Level 3 Est. Patient 11:31:59 GOLF PROFESSIONAL Bertrand marquez [facility] CPT-10844 Level 3 Est. Patient 10:20:08 CDT Adolfo villasenor [facility] CPT-69276 Level 3 Est. Patient 13:45:20 CDT Sanket buckley [facility] CPT-78255 Level 3 Est. Patient 12:51:06 CDT Adolfo villasenor [facility] CPT-14354 Level 3 Est. Patient 11:22:51 GOLF PROFESSIONAL Yoli tolbert MD PhD [facility] CPT-30775 Level 3 Est. Patient 13:33:19 CDT Bertrand marquez [facility] Procedures Code Procedure Name Date Entry Date Standard Desc ription CPT-42672 Wound Culture - LAB USE ONLY 15:45:25 CDT 2 CPT-77464 Venipuncture Draw Fee 10:23:01 CDT CPT-J0696 Rocephin 1000 mg (Ceftriaxone) 16:20:30 GOLF PROFESSIONAL CPT-24782 Abx/Therapy Injection 16:20:29 GOLF PROFESSIONAL CPT-J0696 Rocephin 1gm Inj Solr 15:51:59 GOLF PROFESSIONAL CPT-18911 Chest 2V Frontal and Lat 15:20:28 GOLF PROFESSIONAL 07/22 CPT-94345 Breathing Tx 14:51:55 GOLF PROFESSIONAL CPT-87900 Breathing Tx 09:57:16 GOLF PROFESSIONAL CPT-17740 Knee comp 4/> V 11:58:06 GOLF PROFESSIONAL
--- OUTSIDE RECORDS SUMMARY | 2019-11-13 09:54 | XMS REPORT | Clinical Summary ---
Author Author Admin, Enrique Adamson Organization [employer] Address Unknown Phone Unavailable Allergies, Adverse Reactions, [...] 09/09/28 EDEMA LEG ICD-782.3 Inactive Adele Feldman GRADES 1 THROUGH 5 TEACHER 201 01/01/02 SHORTNESS OF BREATH ICD-786.05 Inactive Yoli Mercado MD PhD RIB PAIN, RIGHT SIDED ICD-786.50 Inactive Yoli Mercado MD PhD KNEE PAIN, RIGHT ICD-719.46 Inactive Adele chiu GRADES 1 THROUGH 5 TEACHER Knee pain, left ICD-719.46 Inactive Adele damico GRADES 1 THROUGH 5 TEACHER Pharyngitis-Acute ICD-462 Inactive Bertrand Redmond DO Polyuria ICD-788.42 Inactive Yoli Mercado MD P hD Cellulitis, leg, right ICD-682.6 Inactive Yuki Deluna MD Foreign body, ear ICD-931 Inactive Yoli salazar MD PhD Fatigue ICD-780.79 Inactive Ike Deluna MD 201 12/01/06 Headache ICD-784.0 Inactive Adele Feldman LPN 2017 Cough ICD-786.2 Inactive Adele Feldman LPN 06/04 SINUSITIS, ACUTE ICD-461.9 Inactive Ike lange MD HEALTH SCREENING ICD-V70.0 Inactive Yoli sabillon MD PhD Fatigue ICD-780.79 Inactive Adele Feldman LPN 2017 Bronchitis acute with bronchospasm ICD-466.0 I nactive Bertrand Patel DO Animal bite ICD-919.8 Inactive Adele Chawla Mycoplasma infection ICD-041.81 Inactive Malindait terry Feldman LPN Amenorrhea, secondary ICD-626.0 Inactive Malindai ta Gaston ARTHUR Left maxillary sinusitis ICD-473.0 Inactive Bertrand Patel DO Medication List Medication Instructions Start Date Stop Date Generic Name NDC Status Provider Patient Instruction EVENING PRIMROSE OIL 1000 MG ORAL CAPSULE 1 capsule once daily EVENING PRIMROSE OIL 45686593958 Active Bertrand Patel DO Active LEVAQUIN 500 MG ORAL TABLET 1 tablet by mouth daily 21/06/28 LEVOFLOXACIN 46382528359 No Longer Active Bertrand Patel DO Active PREDNISONE 20 MG ORAL TABLET Take 3 tabs for 3 days, t hen 2 tabs for 3 days, then 1 tab for 3 days PREDNISONE 22403812339 No Rainer fatou Active Galilea Sell ART PROFESSOR Active DOXYCYCLINE HYCLATE 100 MG ORAL CAPSULE 1 cap by mouth twice jong ly DOXYCYCLINE HYCLATE 92309793184 No Longer Active Galilea Sell ART PROFESSOR Active ADDERALL 10 MG ORAL TABLET 1 tab twice daily 2 AMPHETAMINE-DEXTROAMPHETAMINE 55063244529 No Longer Active Nitza Phi llips Scribe Active ZITHROMAX Z-MARTIN 250 MG ORAL TABLET 2 today and then 1 daily for 4 days AZITHROMYCIN 89408054008 No Longer Active Nitza Osman lips Scribe Active BENZONATATE 200 MG ORAL CAPSULE 1 three times a day as neede d for cough BENZONATATE 49795462742 No Longer Active Nitza Osman lips Scribe Active VITAMIN D3 23566 UNIT ORAL CAPSULE 1 pill Week x 4 mo nths for vitamin D deficiency/osteoporosis CHOLECALCIFEROL 30902289089 N o Longer Active Layla Garcia Active BACTROBAN 2 % EXTERNAL CREAM Apply to affected area BID for up to 10 days MUPIROCIN CALCIUM 87353897384 No Longer Active Ike Deluna MD Active CIPRO 500 MG ORAL TABLET 1 tablet by mouth twice daily CIPROFLOXACIN HCL 46696922442 No Longer Active Adriana Bender LPN Active AUGMENTIN 875-125 MG ORAL TABLET 1 po BID x 10 days 18/04/06 AMOXICILLIN-POT CLAVULANATE 26267072202 No Longer Active Adriana Bender LPN Active MODAFINIL 200 MG ORAL TABLET Take 1/2 tab po in the am and 1 /2 tab po at noon MODAFINIL 00949499016 Active Bertrand Patel DO Ac tive CYCLOBENZAPRINE HCL 10 MG ORAL TABLET Take 1 tab TID PRN for mus triston pain CYCLOBENZAPRINE HCL 81356370306 No Longer Active Bertrand Patel DO Active TESSALON PERLES 100 MG ORAL CAPSULE 1 tablet by mouth 3 times da juan pablo BENZONATATE 93234680068 No Longer Active Bertrand Patel DO Ac tive NEBULIZER use as directed NEBULIZERS 07893029506 No Longer Active Bertrand Patel DO Active ALBUTEROL SULFATE (2.5 MG/3ML) 0.083% INHALATION NEBUL IZATION SOLUTION one vial per nebulizer every 4-6 hours as needed ALBUTERO L SULFATE 91456441463 No Longer Active Bertrand Patel DO Active SYMBICORT 160-4.5 MCG/ACT INHALATION AEROSOL 2 puffs BID 9 BUDESONIDE-FORMOTEROL FUMARATE 64778273246 No Longer Active Bertrand Patel DO Active PREDNISONE 20 MG ORAL TABLET take 3 tabs daily for 3 d ays, 2 tabs daily for 3 days, 1 tab daily for 3 days, 1/2 tab daily for 3 days 08/02 PREDNISONE 08275348953 No Longer Active Silvia Arekalin ART PROFESSOR Active AZITHROMYCIN 250 MG ORAL TABLET Take 2 tabs po today then 1 tab po daily AZITHROMYCIN 66780144540 No Longer Active Silvia Arell ART PROFESSOR Active AUGMENTIN 875-125 MG ORAL TABLET 1 po BID x 10 days 20 19/07/13 AMOXICILLIN-POT CLAVULANATE 04356577764 No Longer Active Adriana Bender GRADES 1 THROUGH 5 TEACHER Active CHEWABLE CALCIUM 500-200-40 MG-UNT-MCG ORAL TABLET CHEWABLE 1 chew tab bid CALCIUM-VITAMIN D-VITAMIN K 07956158182 Active Silvia Are ll ART PROFESSOR Active EQ COMPLETE MULTIVIT ADULT 50+ ORAL TABLET 1 tab po bid MULTIPLE VITAMINS-MINERALS 27948424310 Active Silvia Arell ART PROFESSOR Active HYDROCODONE-ACETAMINOPHEN 7.5-325 MG ORAL TABLET TAKE ONE TAB EVERY 6 HOURS BY MOUTH NEEDED FOR PAIN HYDROCODONE-ACETAMINOPHEN 004 70369444 Active Bertrand Patel DO Active LORTAB 7.5-500 MG ORAL TABLET take one po Q6 hours 201 09/12/01 HYDROCODONE-ACETAMINOPHEN 83847591254 No Longer Active Nirmal Robbins RN Active [facility] MELATONIN 5-10 MG ORAL TABLET EXTENDED RELEASE Jair e one by mouth daily at bedtime MELATONIN-PYRIDOXINE 92203797592 No Longer Acti ve Bertrand Patel DO Active VITAMIN E 200 UNIT ORAL CAPSULE 1 cap po qd VITAM IN E 03248724942 No Longer Active Bertrand Patel DO Active B-12 1000 MCG ORAL CAPSULE 1 tab daily CYANOCOB ALAMIN 06254904371 No Longer Active Bertrand Patel DO Active METFORMIN HCL 500 MG ORAL TABLET 1 bid METFOR MIN HCL 69768306978 No Longer Active Bertrand Patel DO Active FUROSEMIDE 20 MG ORAL TABLET 1 pill by mouth daily if needed for edema FUROSEMIDE 21917398548 No Longer Active Bertrand Patel DO Active PRAVASTATIN SODIUM 20 MG ORAL TABLET 1 tablet by mouth daily at bedtime PRAVASTATIN SODIUM 18461572276 No Longer Active Bertrand Patel DO Active AUGMENTIN 875-125 MG ORAL TABLET 1 pill by mouth twice daily 201 09/10/00 AMOXICILLIN-POT CLAVULANATE 95167550771 No Longer Active Yoli Mercado MD PhD Active LEVAQUIN 500 MG ORAL TABLET 1 pill by mouth daily 2013 LEVOFLOXACIN 23292986116 No Longer Active Yoli Mercado MD PhD Acti ve AMLODIPINE BESYLATE 5 MG ORAL TABLET 1 tablet by mouth daily for blood pressure AMLODIPINE BESYLATE 19057724466 Active Bertrand Patel DO Active MICARDIS 80 MG ORAL TABLET 1 tablet daily for blood pressure 07/30 TELMISARTAN 01252702820 Active Bertrand Patel DO Active MICARDIS HCT 80-12.5 MG ORAL TABLET 1 qd TELMISARTAN-HCTZ 78022672948 No Longer Active Bertrand Patel DO Active CINNAMON ALPHA LIPOIC AC CMPLX CAPSULE by mouth twice a day in AM by mouth twice a day in PM ALPHA LIPOIC [id number] CA PS 25362351335 No Longer Active Bertrand Patel DO Active AZITHROMYCIN 500 MG INTRAVENOUS SOLUTION RECONSTITUTED 1 po q da y AZITHROMYCIN 61674931782 No Longer Active Bertrand Patel DO A ctive CYMBALTA 30 MG ORAL CAPSULE DELAYED RELEASE PARTICLES 1 cap by mouth daily DULOXETINE HCL 78215391329 No Longer Active Bertrand marquez DO Active CYMBALTA 60 MG ORAL CAPSULE DELAYED RELEASE PARTICLES 1 cap by mouth daily DULOXETINE HCL 18162321369 Active Bertrand Patel DO Active WELLBUTRIN 75 MG ORAL TABLET 2 times daily BUPR OPION HCL 03644607452 No Longer Active Bertrand Patel DO Active PROAIR HFA 108 (90 Base) MCG/ACT INHALATION AEROSOL SO LUTION take one to two puffs po Q4-6 hour prn cough and shortness of breath ALBUTEROL SULFATE 88277166404 Active Bertrand Patel DO Active AZITHROMYCIN 250 MG ORAL TABLET take 2 po today then take 1 po days 2-5 AZITHROMYCIN 94052823264 No Longer Active Adolfo OSORIO Active PERMETHRIN 5 % EXTERNAL CREAM apply neck to toes tonig ht and then rinse off in morning. repeat at 7 days PERMETHRIN 67648036052 No Longer Active Adolfo OSORIO Active AMOXICILLIN 500 MG ORAL CAPSULE 2 po BID x 10 days 201 07/15/00 AMOXICILLIN 89385444410 No Longer Active Yoli Mercado MD PhD Acti ve ALPRAZOLAM 0.5 MG ORAL TABLET 1 tab by mouth tid ALPRAZOLAM 47263337670 Active Bertrand Patel DO Active INSUPEN ULTRAFIN 31G X 6 MM USE DIRECTED INSULIN PEN NEEDLE 75479872688 No Longer Active Bertrand Patel DO Active TRANSDERM-SCOP (1.5 MG) 1 MG/3DAYS TRANSDERMAL PATCH 7 2 HOUR 1 patch applied behind ear q 3 day SCOPOLAMINE BASE 07437401150 No Lo nger Active Bertrand Patel DO Active MACRODANTIN 100 MG ORAL CAPSULE one p.o. b.i.d. x2 weeks NITROFURANTOIN MACROCRYSTAL 09699820812 No Longer Active Bertrand Villasenor Jorge DO Active MACRODANTIN 100 MG ORAL CAPSULE one p.o. b.i.d. x2 weeks MACRODANTIN 100 MG ORAL CAPSULE 0279937 NITROFURANTOIN MACROCRYSTAL Inactive TRANSDERM-SCOP (1.5 MG) 1 [...] days PERMETHRIN 5 % EXTER NAL CREAM 608416 PERMETHRIN Inactive WELLBUTRIN 75 MG ORAL TABLET 2 times daily WELLBUTRIN 75 MG ORAL TABLET BUPROPION HCL Inactive CYMBALTA 30 MG ORAL CAPSULE DELAYED RELEASE PARTICLES 1 cap by mouth daily CYMBALTA 30 MG ORAL CAPSULE DELAYED RELE ASE PARTICLES 291748 DULOXETINE HCL Inactive AZITHROMYCIN 500 MG INTRAVENOUS SOLUTION RECONSTITUTED 1 po q da y AZITHROMYCIN 500 MG INTRAVENOUS SOLUTION RECONSTITUTED 68204 372295 AZITHROMYCIN Inactive CINNAMON ALPHA LIPOIC AC CMPLX CAPSULE by mouth twice a day in AM by mouth twice a day in PM CINNAMON ALPHA LIPOIC AC CMPLX CAPSULE ALPHA LIPOIC [id number]-DV-[id number] CAPS Inactive MICARDIS HCT 80-12.5 MG ORAL TABLET 1 qd 07/30 MICARDIS HCT 80-12.5 MG ORAL TABLET 627018 TELMISARTAN-HCTZ Inactive PRAVASTATIN SODIUM 20 MG ORAL TABLET 1 tablet by mouth daily at bedtime PRAVASTATIN SODIUM 20 MG ORAL TABLET 395450 PRAVASTATIN SODIUM Inactive FUROSEMIDE 20 MG ORAL TABLET 1 pill by mouth daily if needed for edema FUROSEMIDE 20 MG ORAL TABLET 189209 FUROSEMIDE Inactive METFORMIN HCL 500 MG ORAL TABLET 1 bid METFORMIN HCL 500 MG ORAL TABLET 050865 METFORMIN HCL Inactive B-12 1000 MCG ORAL CAPSULE 1 tab daily B -12 1000 MCG ORAL CAPSULE CYANOCOBALAMIN Inactive VITAMIN E 200 UNIT ORAL CAPSULE 1 cap po qd 1 VITAMIN E 200 UNIT ORAL CAPSULE 3656713 VITAMIN E Inactive [facility] MELATONIN 5-10 MG [...] po daily AZITHROMYCIN 250 MG ORAL TABLET 549088 AZITHROMY BERNARDO Inactive SYMBICORT 160-4.5 MCG/ACT INHALATION AEROSOL 2 puffs BID 9 SYMBICORT 160-4.5 MCG/ACT INHALATION AEROSOL BUDESONIDE-FORM OTEROL FUMARATE Inactive ALBUTEROL SULFATE (2.5 MG/3ML) 0.083% INHALATION NEBUL IZATION SOLUTION one vial per nebulizer every 4-6 hours as needed ALBUTEROL SULFATE (2.5 MG/3ML) 0.083% INHALATION NEBULIZATION SOLUTION 359275 ALBUTER OL SULFATE Inactive NEBULIZER use as directed NEBULIZER NEBULI ZERS Inactive TESSALON PERLES 100 MG ORAL CAPSULE 1 tablet by mouth 3 times da juan pablo TESSALON PERLES 100 MG ORAL CAPSULE 775323 BENZONATATE Inactive CYCLOBENZAPRINE HCL 10 MG ORAL TABLET Take 1 tab TID PRN for mus triston pain CYCLOBENZAPRINE HCL 10 MG ORAL TABLET 091082 CYCLOBENZA ANUJA HCL Inactive AUGMENTIN 875-125 MG ORAL TABLET 1 po BID x 10 days 20 18/04/06 AUGMENTIN 875-125 MG ORAL TABLET 464126 AMOXICILLIN-POT CLAVULANATE Inactive BACTROBAN 2 % EXTERNAL CREAM Apply to affected area BID for up to 10 days BACTROBAN 2 % EXTERNAL CREAM 405454 MUPIROCIN CA LCIUM Inactive VITAMIN D3 19599 UNIT ORAL CAPSULE 1 pill Week x 4 mo [facility] for vitamin D deficiency/osteoporosis VITAMIN D3 60755 UNIT ORAL CAPSULE CHOLECALCIFEROL Inactive BENZONATATE 200 MG ORAL CAPSULE 1 three times a day as neede d for cough BENZONATATE 200 MG ORAL CAPSULE 529153 BENZONATA TE Inactive ZITHROMAX Z-MARTIN 250 MG ORAL TABLET 2 today and then 1 daily for 4 days ZITHROMAX Z-MARTIN 250 MG ORAL TABLET 260524 AZITHR OMYCIN Inactive ADDERALL 10 MG ORAL TABLET 1 tab twice daily 2 ADDERALL 10 MG ORAL TABLET 946221 AMPHETAMINE-DEXTROAMPHETAMINE Inactive LEVAQUIN 500 MG ORAL TABLET 1 tablet by mouth daily 20 21/06/28 LEVAQUIN 500 MG ORAL TABLET 493843 LEVOFLOXACIN Inactive AMOXICILLIN 500 MG ORAL CAPSULE 2 po BID x 10 days 201 07/15/00 AMOXICILLIN 500 MG ORAL CAPSULE 100454 AMOXICILLIN Inactive AZITHROMYCIN 250 MG ORAL TABLET take 2 po today then take 1 po days 2-5 AZITHROMYCIN 250 MG ORAL TABLET 990803 AZITHROMY BERNARDO Inactive LEVAQUIN 500 MG ORAL TABLET 1 pill by mouth daily 2013 LEVAQUIN 500 MG ORAL TABLET 776093 LEVOFLOXACIN Inactive AUGMENTIN 875-125 MG ORAL TABLET 1 pill by mouth twice daily 201 09/10/00 AUGMENTIN 875-125 MG ORAL TABLET 175549 AMOXICILLIN-POT CLAVULANATE Inactive AUGMENTIN 875-125 MG ORAL TABLET 1 po BID x 10 days 20 19/07/13 AUGMENTIN 875-125 MG ORAL TABLET 463557 AMOXICILLIN-POT CLAVULANATE Inactive PREDNISONE 20 MG ORAL TABLET take 3 tabs daily for 3 d ays, 2 tabs daily for 3 days, 1 tab daily for 3 days, 1/2 tab daily for 3 days 08/02 PREDNISONE 20 MG ORAL TABLET 386725 PREDNISONE Inactive CIPRO 500 MG ORAL TABLET 1 tablet by mouth twice daily CIPRO 500 MG ORAL TABLET 418451 CIPROFLOXACIN HCL Inactive DOXYCYCLINE HYCLATE 100 MG ORAL CAPSULE 1 cap by mouth twice jong ly DOXYCYCLINE HYCLATE 100 MG ORAL CAPSULE 6269789 DOXYCYCL INE HYCLATE Inactive PREDNISONE 20 MG [...] d Encounters Code Encounter Date Provider Facility CPT-[id number] Vst-Est Level IV 14:46:36 KITCHEN ASSISTANT Foster ce W Jorge [facility] CPT-29968 Level 3 Est. Patient 12:37:30 KITCHEN ASSISTANT Galilea Se [facility]-59906 Level 3 Est. Patient 11:40:23 CDT Bertrand marquez [facility]-32722 Level 4 Est. Patient 15:33:35 KITCHEN ASSISTANT Bertrand marquez [facility] CPT-21736 Level 4 Est. Patient 12:31:54 CDT Bertrand marquez [facility] CPT-54514 Level 3 Est. Patient 11:27:00 KITCHEN ASSISTANT Ike Deluna MD [facility] CPT-28946 Level 3 Est. Patient 08:50:57 KITCHEN ASSISTANT Silvia Are kalin [facility] CPT-76749 Level 3 Est. Patient 10:04:13 CDT Bertrand marquez [facility] CPT-34056 Level 4 Est. Patient 16:02:10 KITCHEN ASSISTANT Siliva Are kalin [facility] CPT-09034 Level 3 Est. Patient 13:04:54 KITCHEN ASSISTANT Silvia Are [facility] CPT-63191 Level 3 Est. Patient 12:56:37 CDT Bertrand mraquez [facility] CPT-92224 Level 3 Est. Patient 19:12:03 CDT Yoli tolbert MD PhD [facility] CPT-68029 Level 3 Est. Patient 14:36:01 CDT Yoli tolbert MD PhD [facility] CPT-07755 Level 2 Est. Patient 08:00:22 CDT Jcarlos dc MD [facility] CPT-36454 Level 3 Est. Patient 19:06:55 CDT Bertrand marquez [facility] CPT-49778 Level 3 Est. Patient 10:08:23 KITCHEN ASSISTANT Bertrand marquez [facility] CPT-66495 Level 3 Est. Patient 16:37:54 KITCHEN ASSISTANT Bertrand marquez [facility] CPT-69162 Level 3 Est. Patient 11:31:59 KITCHEN ASSISTANT Bertrand marquez [facility] CPT-99053 Level 3 Est. Patient 10:20:08 CDT Adolfo villasenor [facility] CPT-94664 Level 3 Est. Patient 13:45:20 CDT Sanket buckley [facility] CPT-18950 Level 3 Est. Patient 12:51:06 CDT Adolfo villasenor [facility] CPT-48746 Level 3 Est. Patient 11:22:51 KITCHEN ASSISTANT Yoli tolbert MD PhD [facility] CPT-36996 Level 3 Est. Patient 13:33:19 CDT Bertrand marquez [facility] Procedures Code Procedure Name Date Entry Date Standard Desc ription CPT-14133 Wound Culture - LAB USE ONLY 15:45:25 CDT 2 CPT-06437 Venipuncture Draw Fee 10:23:01 CDT CPT-J0696 Rocephin 1000 mg (Ceftriaxone) 16:20:30 KITCHEN ASSISTANT CPT-69943 Abx/Therapy Injection 16:20:29 KITCHEN ASSISTANT CPT-J0696 Rocephin 1gm Inj Solr 15:51:59 KITCHEN ASSISTANT CPT-81123 Chest 2V Frontal and Lat 15:20:28 KITCHEN ASSISTANT 07/22 CPT-55173 Breathing Tx 14:51:55 KITCHEN ASSISTANT CPT-01082 Breathing Tx 09:57:16 KITCHEN ASSISTANT CPT-89128 Knee comp 4/> V 11:58:06 KITCHEN ASSISTANT
--- OUTSIDE RECORDS SUMMARY | 2019-11-13 09:54 | XMS REPORT | Clinical Summary ---
Author Author Admin, Enrique Adamson Organization [employer] Address Unknown Phone Unavailable Allergies, Adverse Reactions, [...] Acute sinusitis, unspecified Fatigue 780.79 Resolved Nitza Mullins Scribe Other malaise and fatigue Bronchitis acute with bronchospasm 466.0 Resolved 2 Nitza Liuibe Acute bronchitis Bronchitis acute with bronchospasm 466.0 Active 2 Galilea Núñez APRN Acute bronchitis Narcolepsy 347.00 Active Bertrand Patel [...] not elsewhere classified Left maxillary sinusitis 473.0 Active Bertrand marquez DO Chronic maxillary sinusitis Body Mass Index 50.0-59.9 Adult Active Br rafa Patel DO Body Mass Index 50.0-59.9, adult HEALTH SCREENING ICD-V70.0 Inactive Yoli sabillon MD PhD SCABIES ICD-133.0 Inactive Yoli Mercado MD PhD 201 07/14/20 FH DIABETES ICD-V18.0 Inactive Yoli Mercado MD PhD 20 14/02/29 SINUSITIS, FRONTAL, ACUTE ICD-461.1 Inactive Yoli Mercado MD PhD COUGH ICD-786.2 Inactive Yoli Mercado MD PhD 201 09/09/28 EDEMA LEG ICD-782.3 Inactive Adele Feldman [employer] 201 01/01/02 SHORTNESS OF BREATH ICD-786.05 Inactive Yoli Mercado MD PhD RIB PAIN, RIGHT SIDED ICD-786.50 Inactive Yoli Mercado MD PhD KNEE PAIN, RIGHT ICD-719.46 Inactive Adele chiu [employer] Knee pain, left ICD-719.46 Inactive Adele damico [employer] Pharyngitis-Acute ICD-462 Inactive Bertrand Redmond DO Polyuria ICD-788.42 Inactive Yoli Mercado MD P hD Cellulitis, leg, right ICD-682.6 Inactive Yuki Deluna MD Foreign body, ear ICD-931 Inactive Yoli salazar MD PhD Fatigue ICD-780.79 Inactive Ike Deluna MD 201 12/01/06 Headache ICD-784.0 Inactive Adele Feldman [employer] 2017 Cough ICD-786.2 Inactive Adele Gaston ARTHUR 06/04 SINUSITIS, ACUTE ICD-461.9 Inactive Ike lange MD Fatigue ICD-780.79 Inactive Adele Feldman [employer] 2017 Animal bite ICD-919.8 Inactive Adele Feldman LP N Mycoplasma infection ICD-041.81 Inactive Anit a Gaston UHNGN Amenorrhea, secondary ICD-626.0 Inactive Ani quinton Feldman LPN Medication List Medication Instructions Start Date Stop Date Generic Name NDC Status Provider Patient Instruction PREDNISONE 20 MG ORAL TABLET Take 3 tabs for 3 days, t hen 2 tabs for 3 days, then 1 tab for 3 days PREDNISONE 54567546040 No Rainer fatou Active Galilea Sell AIR PUMPER Active DOXYCYCLINE HYCLATE 100 MG ORAL CAPSULE 1 cap by mouth twice jong ly DOXYCYCLINE HYCLATE 76637056670 No Longer Active Galilea Sell AIR PUMPER Active LEVAQUIN 500 MG ORAL TABLET 1 tablet by mouth daily LEVOFLOXACIN 71215518223 Active Bertrand Patel DO Active ADDERALL 10 MG ORAL TABLET 1 tab twice daily 2 AMPHETAMINE-DEXTROAMPHETAMINE 01003494950 No Longer Active Nitza Phi llips Scribe Active ZITHROMAX Z-MARTIN 250 MG ORAL TABLET 2 today and then 1 daily for 4 days AZITHROMYCIN 23866195773 No Longer Active Nitza Osman lips Scribe Active BENZONATATE 200 MG ORAL CAPSULE 1 three times a day as neede d for cough BENZONATATE 84158531805 No Longer Active Nitza Osman lips Scribe Active VITAMIN D3 50195 UNIT ORAL CAPSULE 1 pill Week x 4 mo nths for vitamin D deficiency/osteoporosis CHOLECALCIFEROL 59298114848 N o Longer Active Layla Garcia Active BACTROBAN 2 % EXTERNAL CREAM Apply to affected area BID for up to 10 days MUPIROCIN CALCIUM 90340219380 No Longer Active Ike Deluna MD Active CIPRO 500 MG ORAL TABLET 1 tablet by mouth twice daily CIPROFLOXACIN HCL 38648831144 No Longer Active Adriana Bender LPN Active AUGMENTIN 875-125 MG ORAL TABLET 1 po BID x 10 days 18/04/06 AMOXICILLIN-POT CLAVULANATE 39704114855 No Longer Active Adriana Bender LPN Active MODAFINIL 200 MG ORAL TABLET Take 1/2 tab po in the am and 1 /2 tab po at noon MODAFINIL 21969841830 Active DOLLY Nguyen Active CYCLOBENZAPRINE HCL 10 MG ORAL TABLET Take 1 tab TID PRN for mus triston pain CYCLOBENZAPRINE HCL 44087153479 No Longer Active Bertrand Patel DO Active TESSALON PERLES 100 MG ORAL CAPSULE 1 tablet by mouth 3 times da juan pablo BENZONATATE 45271864006 No Longer Active Bertrand Patel DO Ac tive NEBULIZER use as directed NEBULIZERS 29838815625 No Longer Active Bertrand Patel DO Active ALBUTEROL SULFATE (2.5 MG/3ML) 0.083% INHALATION NEBUL IZATION SOLUTION one vial per nebulizer every 4-6 hours as needed ALBUTERO L SULFATE 01457861318 No Longer Active Bertrand Patel DO Active SYMBICORT 160-4.5 MCG/ACT INHALATION AEROSOL 2 puffs BID 9 BUDESONIDE-FORMOTEROL FUMARATE 78102442016 No Longer Active Bertrand Patel DO Active PREDNISONE 20 MG ORAL TABLET take 3 tabs daily for 3 d ays, 2 tabs daily for 3 days, 1 tab daily for 3 days, 1/2 tab daily for 3 days 08/02 PREDNISONE 00856296819 No Longer Active Silvia Vazquez AIR PUMPER Active AZITHROMYCIN 250 MG ORAL TABLET Take 2 tabs po today then 1 tab po daily AZITHROMYCIN 20315522182 No Longer Active Silvia Arekalin AIR PUMPER Active AUGMENTIN 875-125 MG ORAL TABLET 1 po BID x 10 days 19/07/13 AMOXICILLIN-POT CLAVULANATE 77003927078 No Longer Active Adriana Bender LPN Active CHEWABLE CALCIUM 500-200-40 MG-UNT-MCG ORAL TABLET CHEWABLE 1 chew tab bid CALCIUM-VITAMIN D-VITAMIN K 26913422764 Active Silvia Are ll AIR PUMPER Active EQ COMPLETE MULTIVIT ADULT 50+ ORAL TABLET 1 tab po bid MULTIPLE VITAMINS-MINERALS 31773641863 Active Silvia Arell AIR PUMPER Active HYDROCODONE-ACETAMINOPHEN 7.5-325 MG ORAL TABLET TAKE ONE TAB EVERY 6 HOURS BY MOUTH NEEDED FOR PAIN HYDROCODONE-ACETAMINOPHEN 004 04480852 Active Layla Garcia Active LORTAB 7.5-500 MG ORAL TABLET take one po Q6 hours 201 09/12/01 HYDROCODONE-ACETAMINOPHEN 68041524102 No Longer Active Nirmal Robbins RN Active [facility] MELATONIN 5-10 MG ORAL TABLET EXTENDED RELEASE Jair e one by mouth daily at bedtime MELATONIN-PYRIDOXINE 66092579920 No Longer Acti ve Bertrand Patel DO Active VITAMIN E 200 UNIT ORAL CAPSULE 1 cap po qd VITAM IN E 22331125339 No Longer Active Bertrand Patel DO Active B-12 1000 MCG ORAL CAPSULE 1 tab daily CYANOCOB ALAMIN 17712420786 No Longer Active Bertrand Patel DO Active METFORMIN HCL 500 MG ORAL TABLET 1 bid METFOR MIN HCL 57320191143 No Longer Active Bertrand Patel DO Active FUROSEMIDE 20 MG ORAL TABLET 1 pill by mouth daily if needed for edema FUROSEMIDE 12025087690 No Longer Active Bertrand Patel DO Active PRAVASTATIN SODIUM 20 MG ORAL TABLET 1 tablet by mouth daily at bedtime PRAVASTATIN SODIUM 69458384653 No Longer Active Bertrand Patel DO Active AUGMENTIN 875-125 MG ORAL TABLET 1 pill by mouth twice daily 201 09/10/00 AMOXICILLIN-POT CLAVULANATE 69519788128 No Longer Active Yoli Mercado MD PhD Active LEVAQUIN 500 MG ORAL TABLET 1 pill by mouth daily 2013 LEVOFLOXACIN 66089728865 No Longer Active Yoli Mercado MD PhD Acti ve AMLODIPINE BESYLATE 5 MG ORAL TABLET 1 tablet by mouth daily for blood pressure AMLODIPINE BESYLATE 69268686096 Active Adele Feldman [employer] Active MICARDIS 80 MG ORAL TABLET 1 tablet daily for blood pressure 07/30 TELMISARTAN 43394549308 Active Adele Feldman [employer] Active MICARDIS HCT 80-12.5 MG ORAL TABLET 1 qd TELMISARTAN-HCTZ 39215931924 No Longer Active Bertrand Patel DO Active CINNAMON ALPHA LIPOIC AC CMPLX CAPSULE by mouth twice a day in AM by mouth twice a day in PM ALPHA LIPOIC GAOF-GN-EZRBBARO CA PS 14006593744 No Longer Active Bertrand Patel DO Active AZITHROMYCIN 500 MG INTRAVENOUS SOLUTION RECONSTITUTED 1 po q da y AZITHROMYCIN 68071743907 No Longer Active Bertrand Patel DO A ctive CYMBALTA 30 MG ORAL CAPSULE DELAYED RELEASE PARTICLES 1 cap by mouth daily DULOXETINE HCL 86467005517 No Longer Active Bertrand marquez DO Active CYMBALTA 60 MG ORAL CAPSULE DELAYED RELEASE PARTICLES 1 cap by mouth daily DULOXETINE HCL 59463848880 Active Adele Feldman [employer] Active WELLBUTRIN 75 MG ORAL TABLET 2 times daily BUPR OPION HCL 59554680438 No Longer Active Bertrand Patel DO Active PROAIR HFA 108 (90 Base) MCG/ACT INHALATION AEROSOL SO LUTION take one to two puffs po Q4-6 hour prn cough and shortness of breath ALBUTEROL SULFATE 85371039286 Active Bertrand Patel DO Active AZITHROMYCIN 250 MG ORAL TABLET take 2 po today then take 1 po days 2-5 AZITHROMYCIN 90407331202 No Longer Active Adolfo OSORIO Active PERMETHRIN 5 % EXTERNAL CREAM apply neck to toes tonig ht and then rinse off in morning. repeat at 7 days PERMETHRIN 44083455870 No Longer Active Adolfo OSORIO Active AMOXICILLIN 500 MG ORAL CAPSULE 2 po BID x 10 days 201 07/15/00 AMOXICILLIN 65057068207 No Longer Active Yoli Mercado MD PhD Acti ve ALPRAZOLAM 0.5 MG ORAL TABLET 1 tab by mouth tid ALPRAZOLAM 03297826676 Active Bertrand Patel DO Active INSUPEN ULTRAFIN 31G X 6 MM USE DIRECTED INSULIN PEN NEEDLE 75384323496 No Longer Active Bertrand Patel DO Active TRANSDERM-SCOP (1.5 MG) 1 MG/3DAYS TRANSDERMAL PATCH 7 2 HOUR 1 patch applied behind ear q 3 day SCOPOLAMINE BASE 63700876806 No Lo nger Active Bertrand Patel DO Active MACRODANTIN 100 MG ORAL CAPSULE one p.o. b.i.d. x2 weeks NITROFURANTOIN MACROCRYSTAL 97891375386 No Longer Active Bertrand Patel DO Active MACRODANTIN 100 MG ORAL CAPSULE one p.o. b.i.d. x2 weeks MACRODANTIN 100 MG ORAL CAPSULE 3084088 NITROFURANTOIN MACROCRYSTAL Inactive TRANSDERM-SCOP (1.5 MG) 1 [...] days PERMETHRIN 5 % EXTER NAL CREAM 793319 PERMETHRIN Inactive WELLBUTRIN 75 MG ORAL TABLET 2 times daily WELLBUTRIN 75 MG ORAL TABLET BUPROPION HCL Inactive CYMBALTA 30 MG ORAL CAPSULE DELAYED RELEASE PARTICLES 1 cap by mouth daily CYMBALTA 30 MG ORAL CAPSULE DELAYED RELE ASE PARTICLES 405937 DULOXETINE HCL Inactive AZITHROMYCIN 500 MG INTRAVENOUS SOLUTION RECONSTITUTED 1 po q da y AZITHROMYCIN 500 MG INTRAVENOUS SOLUTION RECONSTITUTED 28225 593771 AZITHROMYCIN Inactive CINNAMON ALPHA LIPOIC AC CMPLX CAPSULE by mouth twice a day in AM by mouth twice a day in PM CINNAMON ALPHA LIPOIC AC CMPLX CAPSULE ALPHA LIPOIC HLZE-BU-XJIGOZNT CAPS Inactive MICARDIS HCT 80-12.5 MG ORAL TABLET 1 qd 07/30 MICARDIS HCT 80-12.5 MG ORAL TABLET 778692 TELMISARTAN-HCTZ Inactive PRAVASTATIN SODIUM 20 MG ORAL TABLET 1 tablet by mouth daily at bedtime PRAVASTATIN SODIUM 20 MG ORAL TABLET 717678 PRAVASTATIN SODIUM Inactive FUROSEMIDE 20 MG ORAL TABLET 1 pill by mouth daily if needed for edema FUROSEMIDE 20 MG ORAL TABLET 625738 FUROSEMIDE Inactive METFORMIN HCL 500 MG ORAL TABLET 1 bid METFORMIN HCL 500 MG ORAL TABLET 396609 METFORMIN HCL Inactive B-12 1000 MCG ORAL CAPSULE 1 tab daily B -12 1000 MCG ORAL CAPSULE CYANOCOBALAMIN Inactive VITAMIN E 200 UNIT ORAL CAPSULE 1 cap po qd 1 VITAMIN E 200 UNIT ORAL CAPSULE 6692732 VITAMIN E Inactive [facility] MELATONIN 5-10 MG [...] po daily AZITHROMYCIN 250 MG ORAL TABLET 266705 AZITHROMY BERNARDO Inactive SYMBICORT 160-4.5 MCG/ACT INHALATION AEROSOL 2 puffs BID 9 SYMBICORT 160-4.5 MCG/ACT INHALATION AEROSOL BUDESONIDE-FORM OTEROL FUMARATE Inactive ALBUTEROL SULFATE (2.5 MG/3ML) 0.083% INHALATION NEBUL IZATION SOLUTION one vial per nebulizer every 4-6 hours as needed ALBUTEROL SULFATE (2.5 MG/3ML) 0.083% INHALATION NEBULIZATION SOLUTION 500728 ALBUTER OL SULFATE Inactive NEBULIZER use as directed NEBULIZER NEBULI ZERS Inactive TESSALON PERLES 100 MG ORAL CAPSULE 1 tablet by mouth 3 times da juan pablo TESSALON PERLES 100 MG ORAL CAPSULE 754649 BENZONATATE Inactive CYCLOBENZAPRINE HCL 10 MG ORAL TABLET Take 1 tab TID PRN for mus triston pain CYCLOBENZAPRINE HCL 10 MG ORAL TABLET 060696 CYCLOBENZA ANUJA HCL Inactive AUGMENTIN 875-125 MG ORAL TABLET 1 po BID x 10 days 20 18/04/06 AUGMENTIN 875-125 MG ORAL TABLET 973760 AMOXICILLIN-POT CLAVULANATE Inactive BACTROBAN 2 % EXTERNAL CREAM Apply to affected area BID for up to 10 days BACTROBAN 2 % EXTERNAL CREAM 769125 MUPIROCIN CA LCIUM Inactive VITAMIN D3 29145 UNIT ORAL CAPSULE 1 pill Week x 4 mo nths for vitamin D deficiency/osteoporosis VITAMIN D3 02637 UNIT ORAL CAPSULE CHOLECALCIFEROL Inactive BENZONATATE 200 MG ORAL CAPSULE 1 three times a day as neede d for cough BENZONATATE 200 MG ORAL CAPSULE 211019 BENZONATA TE Inactive ZITHROMAX Z-MARTIN 250 MG ORAL TABLET 2 today and then 1 daily for 4 days ZITHROMAX Z-MARTIN 250 MG ORAL TABLET 495193 AZITHR OMYCIN Inactive ADDERALL 10 MG ORAL TABLET 1 tab twice daily 2 ADDERALL 10 MG ORAL TABLET 253837 AMPHETAMINE-DEXTROAMPHETAMINE Inactive AMOXICILLIN 500 MG ORAL CAPSULE 2 po BID x 10 days 201 07/15/00 AMOXICILLIN 500 MG ORAL CAPSULE 692811 AMOXICILLIN Inactive AZITHROMYCIN 250 MG ORAL TABLET take 2 po today then take 1 po days 2-5 AZITHROMYCIN 250 MG ORAL TABLET 626868 AZITHROMY BERNARDO Inactive LEVAQUIN 500 MG ORAL TABLET 1 pill by mouth daily 2013 LEVAQUIN 500 MG ORAL TABLET 977515 LEVOFLOXACIN Inactive AUGMENTIN 875-125 MG ORAL TABLET 1 pill by mouth twice daily 201 09/10/00 AUGMENTIN 875-125 MG ORAL TABLET 110934 AMOXICILLIN-POT CLAVULANATE Inactive AUGMENTIN 875-125 MG ORAL TABLET 1 po BID x 10 days 20 19/07/13 AUGMENTIN 875-125 MG ORAL TABLET 377234 AMOXICILLIN-POT CLAVULANATE Inactive PREDNISONE 20 MG ORAL TABLET take 3 tabs daily for 3 d ays, 2 tabs daily for 3 days, 1 tab daily for 3 days, 1/2 tab daily for 3 days 08/02 PREDNISONE 20 MG ORAL TABLET 318024 PREDNISONE Inactive CIPRO 500 MG ORAL TABLET 1 tablet by mouth twice daily CIPRO 500 MG ORAL TABLET 155828 CIPROFLOXACIN HCL Inactive DOXYCYCLINE HYCLATE 100 MG ORAL CAPSULE 1 cap by mouth twice jong ly DOXYCYCLINE HYCLATE 100 MG ORAL CAPSULE 6905945 DOXYCYCL INE HYCLATE Inactive PREDNISONE 20 MG ORAL TABLET Take 3 tabs for 3 days, t hen 2 tabs for 3 days, then 1 tab for 3 days PREDNISONE 20 MG ORAL TABLET 312 615 PREDNISONE Inactive Vital Signs Date Name Value Unit Range Description blood pressure, diastolic, repeated by physician 79 [...] d Encounters Code Encounter Date Provider Facility CPT-44697 Level 3 Est. Patient 12:37:30 RUG WASHER Galilea gagnon [facility] CPT-06675 Level 3 Est. Patient 11:40:23 CDT Bertrand marquez [facility] CPT-25445 Level 4 Est. Patient 15:33:35 RUG WASHER Bertrand marquez [facility] CPT-28457 Level 4 Est. Patient 12:31:54 CDT [facility] Level 3 Est. Patient 11:27:00 RUG WASHER Ike Deluna MD [facility] CPT-85461 Level 3 Est. Patient 08:50:57 RUG WASHER Silvia gagnon [facility] CPT-62142 Level 3 Est. Patient 10:04:13 CDT Bertrand marquez [facility] CPT-14979 Level 4 Est. Patient 16:02:10 RUG WASHER Silvia Are ll [facility] CPT-18987 Level 3 Est. Patient 13:04:54 RUG WASHER Silvia Are ll [facility] CPT-91741 Level 3 Est. Patient 12:56:37 CDT Bertrand marquez [facility] CPT-89929 Level 3 Est. Patient 19:12:03 CDT Yoli tolbert MD PhD [facility]-16137 Level 3 Est. Patient 14:36:01 CDT Yoli tolbert MD [facility]-84345 Level 2 Est. Patient 08:00:22 CDT Jcarlos dc MD [facility]-31425 Level 3 Est. Patient 19:06:55 CDT Bertrand marquez [facility] CPT-87375 Level 3 Est. Patient 10:08:23 RUG WASHER Bertrand marquez [facility] CPT-83563 Level 3 Est. Patient 16:37:54 RUG WASHER Bertrand marquez [facility] CPT-42353 Level 3 Est. Patient 11:31:59 RUG WASHER Bertrand marquez [facility] CPT-05510 Level 3 Est. Patient 10:20:08 CDT Adolfo villasenor [facility] CPT-08857 Level 3 Est. Patient 13:45:20 CDT Sanket buckley [facility] CPT-64491 Level 3 Est. Patient 12:51:06 CDT Adolfo villasenor [facility]-74431 Level 3 Est. Patient 11:22:51 RUG WASHER Yoli tolbert MD PhD [facility] [place] Level 3 Est. Patient 13:33:19 CDT Bertrand marquez [facility] Procedures Code Procedure Name Date Entry Date Standard Desc ription CPT-59779 Wound Culture - LAB USE ONLY 15:45:25 CDT 2 CPT-22179 Venipuncture Draw Fee 10:23:01 CDT CPT-J0696 Rocephin 1000 mg (Ceftriaxone) 16:20:30 RUG WASHER CPT-51707 Abx/Therapy Injection 16:20:29 RUG WASHER CPT-J0696 Rocephin 1gm Inj Solr 15:51:59 RUG WASHER CPT-49418 Chest 2V Frontal and Lat 15:20:28 RUG WASHER 07/22 CPT-90162 Breathing Tx 14:51:55 RUG WASHER CPT-53210 Breathing Tx 09:57:16 RUG WASHER CPT-44976 Knee comp 4/> V 11:58:06 RUG WASHER
--- OUTSIDE RECORDS SUMMARY | 2019-11-13 09:55 | XMS REPORT | Clinical Summary ---
Author Author Admin, Enrique Adamson Organization [employer] Address Unknown Phone Unavailable Allergies, Adverse Reactions, [...] classified Left maxillary sinusitis 473.0 Active Bertrand mraquez DO Chronic maxillary sinusitis Body Mass Index [...] 09/09/28 EDEMA LEG ICD-782.3 Inactive Adele Feldman DRY KILN BURNER 201 01/01/02 SHORTNESS OF BREATH ICD-786.05 Inactive Yoli Mercado MD PhD RIB PAIN, RIGHT SIDED ICD-786.50 Inactive Yoli Mercado MD PhD KNEE PAIN, RIGHT ICD-719.46 Inactive Adele chiu DRY KILN BURNER Knee pain, left ICD-719.46 Inactive Adele damico DRY KILN BURNER Pharyngitis-Acute ICD-462 Inactive Bertrand Redmond DO Polyuria ICD-788.42 Inactive Yoli Mercado MD P hD Cellulitis, leg, right ICD-682.6 Inactive Yuki Deluna MD Foreign body, ear ICD-931 Inactive Yoli salazar MD PhD Fatigue ICD-780.79 Inactive Ike Deluna MD 201 12/01/06 Headache ICD-784.0 Inactive Adele Feldman DRY KILN BURNER 2017 Cough ICD-786.2 Inactive Adele Gaston ARTHUR 06/04 SINUSITIS, ACUTE ICD-461.9 Inactive Ike lange MD Fatigue ICD-780.79 Inactive Adele Feldman DRY KILN BURNER 2017 Animal bite ICD-919.8 Inactive Aedle Feldman LP N Mycoplasma infection ICD-041.81 Inactive Anit a Gaston HUNGN Amenorrhea, secondary ICD-626.0 Inactive Ani quinton Feldman LPN Medication List Medication Instructions Start Date Stop Date Generic Name NDC Status Provider Patient Instruction PREDNISONE 20 MG ORAL TABLET Take 3 tabs for 3 days, t hen 2 tabs for 3 days, then 1 tab for 3 days PREDNISONE 47005347767 No Rainer fatou Active Galilea Sell MARKETING OPERATIONS SPECIALIST Active DOXYCYCLINE HYCLATE 100 MG ORAL CAPSULE 1 cap by mouth twice jong ly DOXYCYCLINE HYCLATE 60444435394 Active Galilea Sell MARKETING OPERATIONS SPECIALIST Active LEVAQUIN 500 MG ORAL TABLET 1 tablet by mouth daily LEVOFLOXACIN 93779335001 Active Bertrand Patel DO Active ADDERALL 10 MG ORAL TABLET 1 tab twice daily 2 AMPHETAMINE-DEXTROAMPHETAMINE 30673882159 No Longer Active Nitza Phi llips Scribe Active ZITHROMAX Z-MARTIN 250 MG ORAL TABLET 2 today and then 1 daily for 4 days AZITHROMYCIN 68053173303 No Longer Active Nitza Osman lips Scribe Active BENZONATATE 200 MG ORAL CAPSULE 1 three times a day as neede d for cough BENZONATATE 80784240738 No Longer Active Nitza Osman lips Scribe Active VITAMIN D3 74815 UNIT ORAL CAPSULE 1 pill Week x 4 mo nths for vitamin D deficiency/osteoporosis CHOLECALCIFEROL 40798191305 N o Longer Active Layla Garcia Active BACTROBAN 2 % EXTERNAL CREAM Apply to affected area BID for up to 10 days MUPIROCIN CALCIUM 26924177817 No Longer Active Ike Deluna MD Active CIPRO 500 MG ORAL TABLET 1 tablet by mouth twice daily CIPROFLOXACIN HCL 54919864987 No Longer Active Adriana Bender LPN Active AUGMENTIN 875-125 MG ORAL TABLET 1 po BID x 10 days 18/04/06 AMOXICILLIN-POT CLAVULANATE 56742826804 No Longer Active Adriana Bender LPN Active MODAFINIL 200 MG ORAL TABLET Take 1/2 tab po in the am and 1 /2 tab po at noon MODAFINIL 33272936561 Active DOLLY Nguyen Active CYCLOBENZAPRINE HCL 10 MG ORAL TABLET Take 1 tab TID PRN for mus triston pain CYCLOBENZAPRINE HCL 42682695658 No Longer Active Bertrand Patel DO Active TESSALON PERLES 100 MG ORAL CAPSULE 1 tablet by mouth 3 times da juan pablo BENZONATATE 63061438925 No Longer Active Bertrand Patel DO Ac tive NEBULIZER use as directed NEBULIZERS 24132470263 No Longer Active Bertrand Patel DO Active ALBUTEROL SULFATE (2.5 MG/3ML) 0.083% INHALATION NEBUL IZATION SOLUTION one vial per nebulizer every 4-6 hours as needed ALBUTERO L SULFATE 53837496114 No Longer Active Bertrand Patel DO Active SYMBICORT 160-4.5 MCG/ACT INHALATION AEROSOL 2 puffs BID 9 BUDESONIDE-FORMOTEROL FUMARATE 55624568893 No Longer Active Bertrand Patel DO Active PREDNISONE 20 MG ORAL TABLET take 3 tabs daily for 3 d ays, 2 tabs daily for 3 days, 1 tab daily for 3 days, 1/2 tab daily for 3 days 08/02 PREDNISONE 20924843940 No Longer Active Silvia Vazquez MARKETING OPERATIONS SPECIALIST Active AZITHROMYCIN 250 MG ORAL TABLET Take 2 tabs po today then 1 tab po daily AZITHROMYCIN 73275289031 No Longer Active Silvia Arell MARKETING OPERATIONS SPECIALIST Active AUGMENTIN 875-125 MG ORAL TABLET 1 po BID x 10 days 20 19/07/13 AMOXICILLIN-POT CLAVULANATE 68250871922 No Longer Active Adriana Bender LPN Active CHEWABLE CALCIUM 500-200-40 MG-UNT-MCG ORAL TABLET CHEWABLE 1 chew tab bid CALCIUM-VITAMIN D-VITAMIN K 29365944978 Active Silvia Are ll MARKETING OPERATIONS SPECIALIST Active EQ COMPLETE MULTIVIT ADULT 50+ ORAL TABLET 1 tab po bid MULTIPLE VITAMINS-MINERALS 70642869112 Active Silvia Arell MARKETING OPERATIONS SPECIALIST Active HYDROCODONE-ACETAMINOPHEN 7.5-325 MG ORAL TABLET TAKE ONE TAB EVERY 6 HOURS BY MOUTH NEEDED FOR PAIN HYDROCODONE-ACETAMINOPHEN 004 58962619 Active Layla Garcia Active LORTAB 7.5-500 MG ORAL TABLET take one po Q6 hours 201 09/12/01 HYDROCODONE-ACETAMINOPHEN 13734522508 No Longer Active Nirmal Robbins RN Active [facility] MELATONIN 5-10 MG ORAL TABLET EXTENDED RELEASE Jair e one by mouth daily at bedtime MELATONIN-PYRIDOXINE 39294514624 No Longer Acti ve Bertrand Patel DO Active VITAMIN E 200 UNIT ORAL CAPSULE 1 cap po qd VITAM IN E 48119907366 No Longer Active Bertrand Patel DO Active B-12 1000 MCG ORAL CAPSULE 1 tab daily CYANOCOB ALAMIN 14000793969 No Longer Active Bertrand Patel DO Active METFORMIN HCL 500 MG ORAL TABLET 1 bid METFOR MIN HCL 26324477803 No Longer Active Bertrand Patel DO Active FUROSEMIDE 20 MG ORAL TABLET 1 pill by mouth daily if needed for edema FUROSEMIDE 33047624457 No Longer Active Bertrand Patel DO Active PRAVASTATIN SODIUM 20 MG ORAL TABLET 1 tablet by mouth daily at bedtime PRAVASTATIN SODIUM 80931908292 No Longer Active Bertrand Patel DO Active AUGMENTIN 875-125 MG ORAL TABLET 1 pill by mouth twice daily 201 09/10/00 AMOXICILLIN-POT CLAVULANATE 24555959994 No Longer Active Yoli Mercado MD PhD Active LEVAQUIN 500 MG ORAL TABLET 1 pill by mouth daily 2013 LEVOFLOXACIN 47430185418 No Longer Active Yoli Mercado MD PhD Acti ve AMLODIPINE BESYLATE 5 MG ORAL TABLET 1 tablet by mouth daily for blood pressure AMLODIPINE BESYLATE 06185505797 Active Bertrand Patel DO Active MICARDIS 80 MG ORAL TABLET 1 tablet daily for blood pressure 07/30 TELMISARTAN 40301429389 Active Bertrand Patel DO Active MICARDIS HCT 80-12.5 MG ORAL TABLET 1 qd TELMISARTAN-HCTZ 66078299837 No Longer Active Bertrand Patel DO Active CINNAMON ALPHA LIPOIC AC CMPLX CAPSULE by mouth twice a day in AM by mouth twice a day in PM ALPHA LIPOIC [id number] CA PS 71588128417 No Longer Active Bertrand Patel DO Active AZITHROMYCIN 500 MG INTRAVENOUS SOLUTION RECONSTITUTED 1 po q da y AZITHROMYCIN 57742742665 No Longer Active Bertrand Patel DO A ctive CYMBALTA 30 MG ORAL CAPSULE DELAYED RELEASE PARTICLES 1 cap by mouth daily DULOXETINE HCL 64122129768 No Longer Active Bertrand marquez DO Active CYMBALTA 60 MG ORAL CAPSULE DELAYED RELEASE PARTICLES 1 cap by mouth daily DULOXETINE HCL 31771922837 Active Bertrand Patel DO Active WELLBUTRIN 75 MG ORAL TABLET 2 times daily BUPR OPION HCL 89101293522 No Longer Active Bertrand Patel DO Active PROAIR HFA 108 (90 Base) MCG/ACT INHALATION AEROSOL SO LUTION take one to two puffs po Q4-6 hour prn cough and shortness of breath ALBUTEROL SULFATE 68949602674 Active Bertrand Patel DO Active AZITHROMYCIN 250 MG ORAL TABLET take 2 po today then take 1 po days 2-5 AZITHROMYCIN 41826042437 No Longer Active Adolfo OSORIO Active PERMETHRIN 5 % EXTERNAL CREAM apply neck to toes tonig ht and then rinse off in morning. repeat at 7 days PERMETHRIN 74911012568 No Longer Active Adolfo OSORIO Active AMOXICILLIN 500 MG ORAL CAPSULE 2 po BID x 10 days 201 07/15/00 AMOXICILLIN 39911987302 No Longer Active Yoli Mercado MD PhD Acti ve ALPRAZOLAM 0.5 MG ORAL TABLET 1 tab by mouth tid ALPRAZOLAM 50587660830 Active Bertrand Patel DO Active INSUPEN ULTRAFIN 31G X 6 MM USE DIRECTED INSULIN PEN NEEDLE 25574140191 No Longer Active Bertrand Patel DO Active TRANSDERM-SCOP (1.5 MG) 1 MG/3DAYS TRANSDERMAL PATCH 7 2 HOUR 1 patch applied behind ear q 3 day SCOPOLAMINE BASE 66293922725 No Lo nger Active Bertrand Patel DO Active MACRODANTIN 100 MG ORAL CAPSULE one p.o. b.i.d. x2 weeks NITROFURANTOIN MACROCRYSTAL 28268844602 No Longer Active Bertrand Patel DO Active MACRODANTIN 100 MG ORAL CAPSULE one p.o. b.i.d. x2 weeks MACRODANTIN 100 MG ORAL CAPSULE 1481819 NITROFURANTOIN MACROCRYSTAL Inactive TRANSDERM-SCOP (1.5 MG) 1 [...] days PERMETHRIN 5 % EXTER NAL CREAM 062221 PERMETHRIN Inactive WELLBUTRIN 75 MG ORAL TABLET 2 times daily WELLBUTRIN 75 MG ORAL TABLET BUPROPION HCL Inactive CYMBALTA 30 MG ORAL CAPSULE DELAYED RELEASE PARTICLES 1 cap by mouth daily CYMBALTA 30 MG ORAL CAPSULE DELAYED RELE ASE PARTICLES 403247 DULOXETINE HCL Inactive AZITHROMYCIN 500 MG INTRAVENOUS SOLUTION RECONSTITUTED 1 po q da y AZITHROMYCIN 500 MG INTRAVENOUS SOLUTION RECONSTITUTED 48562 908778 AZITHROMYCIN Inactive CINNAMON ALPHA LIPOIC AC CMPLX CAPSULE by mouth twice a day in AM by mouth twice a day in PM CINNAMON ALPHA LIPOIC AC CMPLX CAPSULE ALPHA LIPOIC [id number] CAPS Inactive MICARDIS HCT 80-12.5 MG ORAL TABLET 1 qd 07/30 MICARDIS HCT 80-12.5 MG ORAL TABLET 437199 TELMISARTAN-HCTZ Inactive PRAVASTATIN SODIUM 20 MG ORAL TABLET 1 tablet by mouth daily at bedtime PRAVASTATIN SODIUM 20 MG ORAL TABLET 691844 PRAVASTATIN SODIUM Inactive FUROSEMIDE 20 MG ORAL TABLET 1 pill by mouth daily if needed for edema FUROSEMIDE 20 MG ORAL TABLET 376091 FUROSEMIDE Inactive METFORMIN HCL 500 MG ORAL TABLET 1 bid METFORMIN HCL 500 MG ORAL TABLET 384130 METFORMIN HCL Inactive B-12 1000 MCG ORAL CAPSULE 1 tab daily B -12 1000 MCG ORAL CAPSULE CYANOCOBALAMIN Inactive VITAMIN E 200 UNIT ORAL CAPSULE 1 cap po qd 1 VITAMIN E 200 UNIT ORAL CAPSULE 8517120 VITAMIN E Inactive [facility] MELATONIN 5-10 MG [...] po daily AZITHROMYCIN 250 MG ORAL TABLET 178587 AZITHROMY BERNARDO Inactive SYMBICORT 160-4.5 MCG/ACT INHALATION AEROSOL 2 puffs BID 9 SYMBICORT 160-4.5 MCG/ACT INHALATION AEROSOL BUDESONIDE-FORM OTEROL FUMARATE Inactive ALBUTEROL SULFATE (2.5 MG/3ML) 0.083% INHALATION NEBUL IZATION SOLUTION one vial per nebulizer every 4-6 hours as needed ALBUTEROL SULFATE (2.5 MG/3ML) 0.083% INHALATION NEBULIZATION SOLUTION 423509 ALBUTER OL SULFATE Inactive NEBULIZER use as directed NEBULIZER NEBULI ZERS Inactive TESSALON PERLES 100 MG ORAL CAPSULE 1 tablet by mouth 3 times da juan pablo TESSALON PERLES 100 MG ORAL CAPSULE 227224 BENZONATATE Inactive CYCLOBENZAPRINE HCL 10 MG ORAL TABLET Take 1 tab TID PRN for mus triston pain CYCLOBENZAPRINE HCL 10 MG ORAL TABLET 772557 CYCLOBENZA ANUJA HCL Inactive AUGMENTIN 875-125 MG ORAL TABLET 1 po BID x 10 days 20 18/04/06 AUGMENTIN 875-125 MG ORAL TABLET 001085 AMOXICILLIN-POT CLAVULANATE Inactive BACTROBAN 2 % EXTERNAL CREAM Apply to affected area BID for up to 10 days BACTROBAN 2 % EXTERNAL CREAM 149077 MUPIROCIN CA LCIUM Inactive VITAMIN D3 05978 UNIT ORAL CAPSULE 1 pill Week x 4 mo nths for vitamin D deficiency/osteoporosis VITAMIN D3 05156 UNIT ORAL CAPSULE CHOLECALCIFEROL Inactive BENZONATATE 200 MG ORAL CAPSULE 1 three times a day as neede d for cough BENZONATATE 200 MG ORAL CAPSULE 227057 BENZONATA TE Inactive ZITHROMAX Z-MARTIN 250 MG ORAL TABLET 2 today and then 1 daily for 4 days ZITHROMAX Z-MARTIN 250 MG ORAL TABLET 556937 AZITHR OMYCIN Inactive ADDERALL 10 MG ORAL TABLET 1 tab twice daily 2 ADDERALL 10 MG ORAL TABLET 737704 AMPHETAMINE-DEXTROAMPHETAMINE Inactive AMOXICILLIN 500 MG ORAL CAPSULE 2 po BID x 10 days 201 07/15/00 AMOXICILLIN 500 MG ORAL CAPSULE 157145 AMOXICILLIN Inactive AZITHROMYCIN 250 MG ORAL TABLET take 2 po today then take 1 po days 2-5 AZITHROMYCIN 250 MG ORAL TABLET 164600 AZITHROMY BERNARDO Inactive LEVAQUIN 500 MG ORAL TABLET 1 pill by mouth daily 2013 LEVAQUIN 500 MG ORAL TABLET 428042 LEVOFLOXACIN Inactive AUGMENTIN 875-125 MG ORAL TABLET 1 pill by mouth twice daily 201 09/10/00 AUGMENTIN 875-125 MG ORAL TABLET 147594 AMOXICILLIN-POT CLAVULANATE Inactive AUGMENTIN 875-125 MG ORAL TABLET 1 po BID x 10 days 20 19/07/13 AUGMENTIN 875-125 MG ORAL TABLET 611239 AMOXICILLIN-POT CLAVULANATE Inactive PREDNISONE 20 MG ORAL TABLET take 3 tabs daily for 3 d ays, 2 tabs daily for 3 days, 1 tab daily for 3 days, 1/2 tab daily for 3 days 08/02 PREDNISONE 20 MG ORAL TABLET 316781 PREDNISONE Inactive CIPRO 500 MG ORAL TABLET 1 tablet by mouth twice daily CIPRO 500 MG ORAL TABLET 597340 CIPROFLOXACIN HCL Inactive PREDNISONE 20 MG ORAL TABLET Take [...] d Encounters Code Encounter Date Provider Facility CPT-88468 Level 3 Est. Patient 12:37:30 REVENUE INTEGRITY ANALYST [facility] CPT-25646 Level 3 Est. Patient 11:40:23 CDT Bertrand marquez [facility] CPT-19220 Level 4 Est. Patient 15:33:35 REVENUE INTEGRITY ANALYST Bertrand marquez Lizy [facility] CPT-59101 Level 4 Est. Patient 12:31:54 [facility] CPT-90220 Level 3 Est. Patient 11:27:00 REVENUE INTEGRITY ANALYST Ike Deluna MD [facility] CPT-91952 Level 3 Est. Patient 08:50:57 REVENUE INTEGRITY ANALYST [facility] CPT-70243 Level 3 Est. Patient 10:04:13 CDT [facility] CPT-84513 Level 4 Est. Patient 16:02:10 REVENUE INTEGRITY ANALYST [facility] CPT-63232 Level 3 Est. Patient 13:04:54 REVENUE INTEGRITY ANALYST [facility] Level 3 Est. Patient 12:56:37 CDT Bertrand [facility]quez [facility] CPT-50191 Level 3 Est. Patient 19:12:03 CDT Yoli tolbert MD [facility][note 3]-[id number] Level 3 Est. Patient 14:36:01 CDT Yoli tolbert MD [facility] CPT-86045 Level 2 Est. Patient 08:00:22 CDT Jcarlos dc MD [facility]-51986 Level 3 Est. Patient 19:06:55 CDT Bertrand marquez [facility] CPT-64093 Level 3 Est. Patient 10:08:23 REVENUE INTEGRITY ANALYST Bertrand marquez [facility] CPT-45853 Level 3 Est. Patient 16:37:54 REVENUE INTEGRITY ANALYST Bertrand [facility]quez [facility] CPT-26337 Level 3 Est. Patient 11:31:59 REVENUE INTEGRITY ANALYST Bertrand marquez [facility] CPT-58000 Level 3 Est. Patient 10:20:08 CDT Adolfo villasenor [facility] CPT-44768 Level 3 Est. Patient 13:45:20 CDT Sanket buckley [facility] CPT-79951 Level 3 Est. Patient 12:51:06 CDT Adolfo villasenor [facility] CPT-97092 Level 3 Est. Patient 11:22:51 REVENUE INTEGRITY ANALYST Yoli tolbert MD [facility][note 3]-[id number] Level 3 Est. Patient 13:33:19 CDT Bertrand [facility]quez [facility] Procedures Code Procedure Name Date Entry Date Standard Desc ription CPT-68294 Wound Culture - LAB USE ONLY 15:45:25 CDT 2 CPT-28636 Venipuncture Draw Fee 10:23:01 CDT CPT-J0696 Rocephin 1000 mg (Ceftriaxone) 16:20:30 REVENUE INTEGRITY ANALYST CPT-93015 Abx/Therapy Injection 16:20:29 REVENUE INTEGRITY ANALYST CPT-J0696 Rocephin 1gm Inj Solr 15:51:59 REVENUE INTEGRITY ANALYST CPT-00841 Chest 2V Frontal and Lat 15:20:28 REVENUE INTEGRITY ANALYST 07/22 CPT-22757 Breathing Tx 14:51:55 REVENUE INTEGRITY ANALYST CPT-71099 Breathing Tx 09:57:16 REVENUE INTEGRITY ANALYST CPT-45477 Knee comp 4/> V 11:58:06 REVENUE INTEGRITY ANALYST
--- OUTSIDE RECORDS SUMMARY | 2019-11-13 09:55 | XMS REPORT | Clinical Summary ---
Author Author Admin, Enrique Adamson Organization [employer] Address Unknown Phone Unavailable Allergies, Adverse Reactions, [...] 09/09/28 EDEMA LEG ICD-782.3 Inactive Adele Feldman MOLD PRESSER 201 01/01/02 SHORTNESS OF BREATH ICD-786.05 Inactive Yoli Mercado MD PhD RIB PAIN, RIGHT SIDED ICD-786.50 Inactive Yoli Mercado MD PhD KNEE PAIN, RIGHT ICD-719.46 Inactive Adele chiu MOLD PRESSER Knee pain, left ICD-719.46 Inactive Adele damico MOLD PRESSER Pharyngitis-Acute ICD-462 Inactive Bertrand Redmond DO Polyuria ICD-788.42 Inactive Yoli Mercado MD P hD Cellulitis, leg, right ICD-682.6 Inactive Yuki Deluna MD Foreign body, ear ICD-931 Inactive Yoli salazar MD PhD Fatigue ICD-780.79 Inactive Ike Deluna MD 201 12/01/06 Headache ICD-784.0 Inactive Adele Feldman MOLD PRESSER 2017 Cough ICD-786.2 Inactive Adele Gaston ARTHUR 06/04 SINUSITIS, ACUTE ICD-461.9 Inactive Ike lange MD Fatigue ICD-780.79 Inactive Adele Feldman MOLD PRESSER 2017 Animal bite ICD-919.8 Inactive Adele Feldman [...] then 1 tab for 3 days PREDNISONE 40919622566 No Rainer fatou Active Galilea Sell CUSTOMER RESOLUTION SPECIALIST Active DOXYCYCLINE HYCLATE 100 MG ORAL CAPSULE 1 cap by mouth twice jong ly DOXYCYCLINE HYCLATE 27866127961 No Longer Active Galilea Sell CUSTOMER RESOLUTION SPECIALIST Active LEVAQUIN 500 MG ORAL TABLET 1 tablet by mouth daily LEVOFLOXACIN 53669135123 Active Bertrand Patel DO Active ADDERALL 10 MG ORAL TABLET 1 tab twice daily 2 AMPHETAMINE-DEXTROAMPHETAMINE 50079442186 No Longer Active Nitza Phi llips Scribe Active ZITHROMAX Z-MARTIN 250 MG ORAL TABLET 2 today and then 1 daily for 4 days AZITHROMYCIN 28476895173 No Longer Active Nitza Osman lips Scribe Active BENZONATATE 200 MG ORAL CAPSULE 1 three times a day as neede d for cough BENZONATATE 69990503817 No Longer Active Nitza Osman lips Scribe Active VITAMIN D3 80551 UNIT ORAL CAPSULE 1 pill Week x 4 mo nths for vitamin D deficiency/osteoporosis CHOLECALCIFEROL 68624459773 N o Longer Active Layla Garcia Active BACTROBAN 2 % EXTERNAL CREAM Apply to affected area BID for up to 10 days MUPIROCIN CALCIUM 04425975785 No Longer Active Ike Deluna MD Active CIPRO 500 MG ORAL TABLET 1 tablet by mouth twice daily CIPROFLOXACIN HCL 84445843313 No Longer Active Adriana Bender LPN Active AUGMENTIN 875-125 MG ORAL TABLET 1 po BID x 10 days 18/04/06 AMOXICILLIN-POT CLAVULANATE 85391788089 No Longer Active Adriana Bender LPN Active MODAFINIL 200 MG ORAL TABLET Take 1/2 tab po in the am and 1 /2 tab po at noon MODAFINIL 91009920954 Active DOLLY Nguyen Active CYCLOBENZAPRINE HCL 10 MG ORAL TABLET Take 1 tab TID PRN for mus triston pain CYCLOBENZAPRINE HCL 70905751000 No Longer Active Bertrand Patel DO Active TESSALON PERLES 100 MG ORAL CAPSULE 1 tablet by mouth 3 times da juan pablo BENZONATATE 65355269172 No Longer Active Bertrand Patel DO Ac tive NEBULIZER use as directed NEBULIZERS 37117113341 No Longer Active Bertrand Patel DO Active ALBUTEROL SULFATE (2.5 MG/3ML) 0.083% INHALATION NEBUL IZATION SOLUTION one vial per nebulizer every 4-6 hours as needed ALBUTERO L SULFATE 86201532334 No Longer Active Bertrand Patel DO Active SYMBICORT 160-4.5 MCG/ACT INHALATION AEROSOL 2 puffs BID 9 BUDESONIDE-FORMOTEROL FUMARATE 97877648623 No Longer Active Bertrand Patel DO Active PREDNISONE 20 MG ORAL TABLET take 3 tabs daily for 3 d ays, 2 tabs daily for 3 days, 1 tab daily for 3 days, 1/2 tab daily for 3 days 08/02 PREDNISONE 78295490365 No Longer Active Silvia Vazquez CUSTOMER RESOLUTION SPECIALIST Active AZITHROMYCIN 250 MG ORAL TABLET Take 2 tabs po today then 1 tab po daily AZITHROMYCIN 11499833164 No Longer Active Silvia Arekalin CUSTOMER RESOLUTION SPECIALIST Active AUGMENTIN 875-125 MG ORAL TABLET 1 po BID x 10 days 19/07/13 AMOXICILLIN-POT CLAVULANATE 69683605425 No Longer Active Adriana Bender LPN Active CHEWABLE CALCIUM 500-200-40 MG-UNT-MCG ORAL TABLET CHEWABLE 1 chew tab bid CALCIUM-VITAMIN D-VITAMIN K 77027599628 Active Silvia Are ll CUSTOMER RESOLUTION SPECIALIST Active EQ COMPLETE MULTIVIT ADULT 50+ ORAL TABLET 1 tab po bid MULTIPLE VITAMINS-MINERALS 49762263007 Active Silvia Arell CUSTOMER RESOLUTION SPECIALIST Active HYDROCODONE-ACETAMINOPHEN 7.5-325 MG ORAL TABLET TAKE ONE TAB EVERY 6 HOURS BY MOUTH NEEDED FOR PAIN HYDROCODONE-ACETAMINOPHEN 004 19243592 Active Layla Garcia Active LORTAB 7.5-500 MG ORAL TABLET take one po Q6 hours 201 09/12/01 HYDROCODONE-ACETAMINOPHEN 11177546094 No Longer Active Nirmal Robbins RN Active [facility] MELATONIN 5-10 MG ORAL TABLET EXTENDED RELEASE Jair e one by mouth daily at bedtime MELATONIN-PYRIDOXINE 73344101675 No Longer Acti ve Bertrand Patel DO Active VITAMIN E 200 UNIT ORAL CAPSULE 1 cap po qd VITAM IN E 15649589565 No Longer Active Bertrand Patel DO Active B-12 1000 MCG ORAL CAPSULE 1 tab daily CYANOCOB ALAMIN 23170489792 No Longer Active Bertrand Patel DO Active METFORMIN HCL 500 MG ORAL TABLET 1 bid METFOR MIN HCL 94252312518 No Longer Active Bertrand Patel DO Active FUROSEMIDE 20 MG ORAL TABLET 1 pill by mouth daily if needed for edema FUROSEMIDE 88777765431 No Longer Active Bertrand Patel DO Active PRAVASTATIN SODIUM 20 MG ORAL TABLET 1 tablet by mouth daily at bedtime PRAVASTATIN SODIUM 40057222649 No Longer Active Bertrand Patel DO Active AUGMENTIN 875-125 MG ORAL TABLET 1 pill by mouth twice daily 201 09/10/00 AMOXICILLIN-POT CLAVULANATE 92972655605 No Longer Active Yoli Mercado MD PhD Active LEVAQUIN 500 MG ORAL TABLET 1 pill by mouth daily 2013 LEVOFLOXACIN 46335969661 No Longer Active Yoli Mercado MD PhD Acti ve AMLODIPINE BESYLATE 5 MG ORAL TABLET 1 tablet by mouth daily for blood pressure AMLODIPINE BESYLATE 03451240011 Active Bertrand Patel DO Active MICARDIS 80 MG ORAL TABLET 1 tablet daily for blood pressure 07/30 TELMISARTAN 94930687721 Active Bertrand Patel DO Active MICARDIS HCT 80-12.5 MG ORAL TABLET 1 qd TELMISARTAN-HCTZ 88885597914 No Longer Active Bertrand Patel DO Active CINNAMON ALPHA LIPOIC AC CMPLX CAPSULE by mouth twice a day in AM by mouth twice a day in PM ALPHA LIPOIC RYAJ-[id number] CA PS 14682166003 No Longer Active Bertrand Patel DO Active AZITHROMYCIN 500 MG INTRAVENOUS SOLUTION RECONSTITUTED 1 po q da y AZITHROMYCIN 76913669862 No Longer Active Bertrand Patel DO A ctive CYMBALTA 30 MG ORAL CAPSULE DELAYED RELEASE PARTICLES 1 cap by mouth daily DULOXETINE HCL 52573991223 No Longer Active Bertrand marquez DO Active CYMBALTA 60 MG ORAL CAPSULE DELAYED RELEASE PARTICLES 1 cap by mouth daily DULOXETINE HCL 31422975146 Active Bertrand Patel DO Active WELLBUTRIN 75 MG ORAL TABLET 2 times daily BUPR OPION HCL 29516701524 No Longer Active Bertrand Patel DO Active PROAIR HFA 108 (90 Base) MCG/ACT INHALATION AEROSOL SO LUTION take one to two puffs po Q4-6 hour prn cough and shortness of breath ALBUTEROL SULFATE 55139582355 Active Bertrand Patel DO Active AZITHROMYCIN 250 MG ORAL TABLET take 2 po today then take 1 po days 2-5 AZITHROMYCIN 51756067594 No Longer Active Adolfo OSORIO Active PERMETHRIN 5 % EXTERNAL CREAM apply neck to toes tonig ht and then rinse off in morning. repeat at 7 days PERMETHRIN 74583579283 No Longer Active Adolfo OSORIO Active AMOXICILLIN 500 MG ORAL CAPSULE 2 po BID x 10 days 201 07/15/00 AMOXICILLIN 35264718426 No Longer Active Yoli Mercado MD PhD Acti ve ALPRAZOLAM 0.5 MG ORAL TABLET 1 tab by mouth tid ALPRAZOLAM 23504775875 Active Bertrand Patel DO Active INSUPEN ULTRAFIN 31G X 6 MM USE DIRECTED INSULIN PEN NEEDLE 43988214709 No Longer Active Bertrand Patel DO Active TRANSDERM-SCOP (1.5 MG) 1 MG/3DAYS TRANSDERMAL PATCH 7 2 HOUR 1 patch applied behind ear q 3 day SCOPOLAMINE BASE 28463428385 No Lo nger Active Bertrand Patel DO Active MACRODANTIN 100 MG ORAL CAPSULE one p.o. b.i.d. x2 weeks NITROFURANTOIN MACROCRYSTAL 08539780555 No Longer Active Bertrand Patel DO Active MACRODANTIN 100 MG ORAL CAPSULE one p.o. b.i.d. x2 weeks MACRODANTIN 100 MG ORAL CAPSULE 7665573 NITROFURANTOIN MACROCRYSTAL Inactive TRANSDERM-SCOP (1.5 MG) 1 [...] days PERMETHRIN 5 % EXTER NAL CREAM 422741 PERMETHRIN Inactive WELLBUTRIN 75 MG ORAL TABLET 2 times daily WELLBUTRIN 75 MG ORAL TABLET BUPROPION HCL Inactive CYMBALTA 30 MG ORAL CAPSULE DELAYED RELEASE PARTICLES 1 cap by mouth daily CYMBALTA 30 MG ORAL CAPSULE DELAYED RELE ASE PARTICLES 038958 DULOXETINE HCL Inactive AZITHROMYCIN 500 MG INTRAVENOUS SOLUTION RECONSTITUTED 1 po q da y AZITHROMYCIN 500 MG INTRAVENOUS SOLUTION RECONSTITUTED 99541 899692 AZITHROMYCIN Inactive CINNAMON ALPHA LIPOIC AC CMPLX CAPSULE by mouth twice a day in AM by mouth twice a day in PM CINNAMON ALPHA LIPOIC AC CMPLX CAPSULE ALPHA LIPOIC [id number] CAPS Inactive MICARDIS HCT 80-12.5 MG ORAL TABLET 1 qd 07/30 MICARDIS HCT 80-12.5 MG ORAL TABLET 862563 TELMISARTAN-HCTZ Inactive PRAVASTATIN SODIUM 20 MG ORAL TABLET 1 tablet by mouth daily at bedtime PRAVASTATIN SODIUM 20 MG ORAL TABLET 630760 PRAVASTATIN SODIUM Inactive FUROSEMIDE 20 MG ORAL TABLET 1 pill by mouth daily if needed for edema FUROSEMIDE 20 MG ORAL TABLET 887678 FUROSEMIDE Inactive METFORMIN HCL 500 MG ORAL TABLET 1 bid METFORMIN HCL 500 MG ORAL TABLET 843364 METFORMIN HCL Inactive B-12 1000 MCG ORAL CAPSULE 1 tab daily B -12 1000 MCG ORAL CAPSULE CYANOCOBALAMIN Inactive VITAMIN E 200 UNIT ORAL CAPSULE 1 cap po qd 1 VITAMIN E 200 UNIT ORAL CAPSULE 2687524 VITAMIN E Inactive [facility] MELATONIN 5-10 MG [...] po daily AZITHROMYCIN 250 MG ORAL TABLET 603193 AZITHROMY BERNARDO Inactive SYMBICORT 160-4.5 MCG/ACT INHALATION AEROSOL 2 puffs BID 9 SYMBICORT 160-4.5 MCG/ACT INHALATION AEROSOL BUDESONIDE-FORM OTEROL FUMARATE Inactive ALBUTEROL SULFATE (2.5 MG/3ML) 0.083% INHALATION NEBUL IZATION SOLUTION one vial per nebulizer every 4-6 hours as needed ALBUTEROL SULFATE (2.5 MG/3ML) 0.083% INHALATION NEBULIZATION SOLUTION 276374 ALBUTER OL SULFATE Inactive NEBULIZER use as directed NEBULIZER NEBULI ZERS Inactive TESSALON PERLES 100 MG ORAL CAPSULE 1 tablet by mouth 3 times da juan pablo TESSALON PERLES 100 MG ORAL CAPSULE 866204 BENZONATATE Inactive CYCLOBENZAPRINE HCL 10 MG ORAL TABLET Take 1 tab TID PRN for mus triston pain CYCLOBENZAPRINE HCL 10 MG ORAL TABLET 567894 CYCLOBENZA ANUJA HCL Inactive AUGMENTIN 875-125 MG ORAL TABLET 1 po BID x 10 days 20 18/04/06 AUGMENTIN 875-125 MG ORAL TABLET 616744 AMOXICILLIN-POT CLAVULANATE Inactive BACTROBAN 2 % EXTERNAL CREAM Apply to affected area BID for up to 10 days BACTROBAN 2 % EXTERNAL CREAM 066036 MUPIROCIN CA LCIUM Inactive VITAMIN D3 93254 UNIT ORAL CAPSULE 1 pill Week x 4 mo nths for vitamin D deficiency/osteoporosis VITAMIN D3 30277 UNIT ORAL CAPSULE CHOLECALCIFEROL Inactive BENZONATATE 200 MG ORAL CAPSULE 1 three times a day as neede d for cough BENZONATATE 200 MG ORAL CAPSULE 172502 BENZONATA TE Inactive ZITHROMAX Z-MARTIN 250 MG ORAL TABLET 2 today and then 1 daily for 4 days ZITHROMAX Z-MARTIN 250 MG ORAL TABLET 129311 AZITHR OMYCIN Inactive ADDERALL 10 MG ORAL TABLET 1 tab twice daily 2 ADDERALL 10 MG ORAL TABLET 419866 AMPHETAMINE-DEXTROAMPHETAMINE Inactive AMOXICILLIN 500 MG ORAL CAPSULE 2 po BID x 10 days 201 07/15/00 AMOXICILLIN 500 MG ORAL CAPSULE 498321 AMOXICILLIN Inactive AZITHROMYCIN 250 MG ORAL TABLET take 2 po today then take 1 po days 2-5 AZITHROMYCIN 250 MG ORAL TABLET 652607 AZITHROMY BERNARDO Inactive LEVAQUIN 500 MG ORAL TABLET 1 pill by mouth daily 2013 LEVAQUIN 500 MG ORAL TABLET 699509 LEVOFLOXACIN Inactive AUGMENTIN 875-125 MG ORAL TABLET 1 pill by mouth twice daily 201 09/10/00 AUGMENTIN 875-125 MG ORAL TABLET 760448 AMOXICILLIN-POT CLAVULANATE Inactive AUGMENTIN 875-125 MG ORAL TABLET 1 po BID x 10 days 19/07/13 AUGMENTIN 875-125 MG ORAL TABLET 134401 AMOXICILLIN-POT CLAVULANATE Inactive PREDNISONE 20 MG ORAL TABLET take 3 tabs daily for 3 d ays, 2 tabs daily for 3 days, 1 tab daily for 3 days, 1/2 tab daily for 3 days 08/02 PREDNISONE 20 MG ORAL TABLET 536335 PREDNISONE Inactive CIPRO 500 MG ORAL TABLET 1 tablet by mouth twice daily CIPRO 500 MG ORAL TABLET 060458 CIPROFLOXACIN HCL Inactive DOXYCYCLINE HYCLATE 100 MG ORAL CAPSULE 1 cap by mouth twice jong ly DOXYCYCLINE HYCLATE 100 MG ORAL CAPSULE 1255813 DOXYCYCL INE HYCLATE Inactive PREDNISONE 20 MG [...] d Encounters Code Encounter Date Provider Facility CPT-60746 Level 3 Est. Patient 12:37:30 VETERINARY MEDICINE SCIENTIST Galilea gagnon CUSTOMER RESOLUTION SPECIALIST Lizy [facility] CPT-91875 Level 3 Est. Patient 11:40:23 CDT Bertrand marquez Liz[facility] CPT-29056 Level 4 Est. Patient 15:33:35 VETERINARY MEDICINE SCIENTIST Bertrand marquez [facility] CPT-11434 Level 4 Est. Patient 12:31:54 CDT Bertrand marquez [facility] CPT-13447 Level 3 Est. Patient 11:27:00 VETERINARY MEDICINE SCIENTIST Ike Deluna MD [facility] CPT-48952 Level 3 Est. Patient 08:50:57 VETERINARY MEDICINE SCIENTIST [facility] CPT-83713 Level 3 Est. Patient 10:04:[address] [facility]-21280 Level 4 Est. Patient 16:02:10 VETERINARY MEDICINE SCIENTIST Silvia Are ll [facility] CPT-64846 Level 3 Est. Patient 13:04:54 VETERINARY MEDICINE SCIENTIST Silvia Are ll [facility]-68766 Level 3 Est. Patient 12:56:37 CDT Bertrand marquez [facility] CPT-25695 Level 3 Est. Patient 19:12:03 CDT Yoli tolbert MD [facility]-52557 Level 3 Est. Patient 14:36:01 CDT Yoli tolbert MD [facility]-32250 Level 2 Est. Patient 08:00:22 CDT Jcarlos dc MD [facility]-93041 Level 3 Est. Patient 19:06:55 CDT Bertrand marquez [facility] CPT-11853 Level 3 Est. Patient 10:08:23 VETERINARY MEDICINE SCIENTIST Bertrand marquez [facility] CPT-94454 Level 3 Est. Patient 16:37:54 VETERINARY MEDICINE SCIENTIST Bertrand marquez [facility] CPT-57503 Level 3 Est. Patient 11:31:59 VETERINARY MEDICINE SCIENTIST Bertrand marquez [facility] CPT-31395 Level 3 Est. Patient 10:20:08 CDT Adolfo villasenor [facility] [place] Level 3 Est. Patient 13:45:20 CDT Sanket buckley [facility] CPT-98506 Level 3 Est. Patient 12:51:06 CDT Adolfo villasenor [facility] [place]-[address]78 Level 3 Est. Patient 11:22:51 VETERINARY MEDICINE SCIENTIST Yoli tolbert MD [facility]35654 Level 3 Est. Patient 13:33:19 CDT [facility] Code Procedure Name Date Entry Date Standard Desc ription CPT-22382 Wound Culture - LAB USE ONLY 15:45:25 CDT 2 CPT-17457 Venipuncture Draw Fee 10:23:01 CDT CPT-J0696 Rocephin 1000 mg (Ceftriaxone) 16:20:30 VETERINARY MEDICINE SCIENTIST CPT-27974 Abx/Therapy Injection 16:20:29 VETERINARY MEDICINE SCIENTIST CPT-J0696 Rocephin 1gm Inj Solr 15:51:59 VETERINARY MEDICINE SCIENTIST CPT-06912 Chest 2V Frontal and Lat 15:20:28 VETERINARY MEDICINE SCIENTIST 07/22 CPT-38834 Breathing Tx 14:51:55 VETERINARY MEDICINE SCIENTIST CPT-78700 Breathing Tx 09:57:16 VETERINARY MEDICINE SCIENTIST CPT-19967 Knee comp 4/> V 11:58:06 VETERINARY MEDICINE SCIENTIST
--- OUTSIDE RECORDS SUMMARY | 2019-11-13 09:55 | XMS REPORT | Clinical Summary ---
Author Author Admin, Enrique Adamson Organization [employer] Address Unknown Phone Unavailable Allergies, Adverse Reactions, [...] Mercado MD PhD COUGH ICD-786.2 Inactive Yoli Mrecado MD PhD 201 09/09/28 EDEMA LEG ICD-782.3 Inactive Adele Feldman PAINTER INTERIOR FINISH 201 01/01/02 SHORTNESS OF BREATH ICD-786.05 Inactive Yoli Mercado MD PhD RIB PAIN, RIGHT SIDED ICD-786.50 Inactive Yoli Mercado MD PhD KNEE PAIN, RIGHT ICD-719.46 Inactive Adele chiu PAINTER INTERIOR FINISH Knee pain, left ICD-719.46 Inactive Adele damico PAINTER INTERIOR FINISH Pharyngitis-Acute ICD-462 Inactive Bertrand Redmond DO Polyuria ICD-788.42 Inactive Yoli Mercado MD P hD Cellulitis, leg, right ICD-682.6 Inactive Yuki Deluna MD Foreign body, ear ICD-931 Inactive Yoli salazar MD PhD Fatigue ICD-780.79 Inactive Ike Deluna MD 201 12/01/06 Headache ICD-784.0 Inactive Adele Feldman PAINTER INTERIOR FINISH 2017 Cough ICD-786.2 Inactive Adele Gaston ARTHUR 06/04 SINUSITIS, ACUTE ICD-461.9 Inactive Ike lange MD Fatigue ICD-780.79 Inactive Adele Feldman PAINTER INTERIOR FINISH 2017 Animal bite ICD-919.8 Inactive Adele Feldman [...] then 1 tab for 3 days PREDNISONE 62322024130 No Rainer fatou Active Galilea Sell CHOCOLATE FINISHER OPERATOR Active DOXYCYCLINE HYCLATE 100 MG ORAL CAPSULE 1 cap by mouth twice jong ly DOXYCYCLINE HYCLATE 74780890085 No Longer Active Galilea Sell CHOCOLATE FINISHER OPERATOR Active LEVAQUIN 500 MG ORAL TABLET 1 tablet by mouth daily LEVOFLOXACIN 28098787881 Active Bertrand Patel DO Active ADDERALL 10 MG ORAL TABLET 1 tab twice daily 2 AMPHETAMINE-DEXTROAMPHETAMINE 93549470935 No Longer Active Nitza Phi llips Scribe Active ZITHROMAX Z-MARTIN 250 MG ORAL TABLET 2 today and then 1 daily for 4 days AZITHROMYCIN 21511989738 No Longer Active Nitza Osman lips Scribe Active BENZONATATE 200 MG ORAL CAPSULE 1 three times a day as neede d for cough BENZONATATE 16063708129 No Longer Active Nitza Osman lips Scribe Active VITAMIN D3 16010 UNIT ORAL CAPSULE 1 pill Week x 4 mo nths for vitamin D deficiency/osteoporosis CHOLECALCIFEROL 51579484145 N o Longer Active Layla Garcia Active BACTROBAN 2 % EXTERNAL CREAM Apply to affected area BID for up to 10 days MUPIROCIN CALCIUM 62273516978 No Longer Active Ike Deluna MD Active CIPRO 500 MG ORAL TABLET 1 tablet by mouth twice daily CIPROFLOXACIN HCL 65382687443 No Longer Active Adriana Bender LPN Active AUGMENTIN 875-125 MG ORAL TABLET 1 po BID x 10 days 18/04/06 AMOXICILLIN-POT CLAVULANATE 31894811577 No Longer Active Adriana Bender LPN Active MODAFINIL 200 MG ORAL TABLET Take 1/2 tab po in the am and 1 /2 tab po at noon MODAFINIL 12352186624 Active DOLLY Nguyen Active CYCLOBENZAPRINE HCL 10 MG ORAL TABLET Take 1 tab TID PRN for mus triston pain CYCLOBENZAPRINE HCL 36739281408 No Longer Active Bertrand Patel DO Active TESSALON PERLES 100 MG ORAL CAPSULE 1 tablet by mouth 3 times da juan pablo BENZONATATE 91140804700 No Longer Active Bertrand Patel DO Ac tive NEBULIZER use as directed NEBULIZERS 83628943605 No Longer Active Bertrand Patel DO Active ALBUTEROL SULFATE (2.5 MG/3ML) 0.083% INHALATION NEBUL IZATION SOLUTION one vial per nebulizer every 4-6 hours as needed ALBUTERO L SULFATE 79140729252 No Longer Active Bertrand Patel DO Active SYMBICORT 160-4.5 MCG/ACT INHALATION AEROSOL 2 puffs BID 9 BUDESONIDE-FORMOTEROL FUMARATE 28104009182 No Longer Active Bertrand Patel DO Active PREDNISONE 20 MG ORAL TABLET take 3 tabs daily for 3 d ays, 2 tabs daily for 3 days, 1 tab daily for 3 days, 1/2 tab daily for 3 days 08/02 PREDNISONE 68361065360 No Longer Active Silvia Vazquez CHOCOLATE FINISHER OPERATOR Active AZITHROMYCIN 250 MG ORAL TABLET Take 2 tabs po today then 1 tab po daily AZITHROMYCIN 99302949929 No Longer Active Silvia Arekalin CHOCOLATE FINISHER OPERATOR Active AUGMENTIN 875-125 MG ORAL TABLET 1 po BID x 10 days 19/07/13 AMOXICILLIN-POT CLAVULANATE 38406805965 No Longer Active Adriana Bender LPN Active CHEWABLE CALCIUM 500-200-40 MG-UNT-MCG ORAL TABLET CHEWABLE 1 chew tab bid CALCIUM-VITAMIN D-VITAMIN K 26090760820 Active Silvia Are ll CHOCOLATE FINISHER OPERATOR Active EQ COMPLETE MULTIVIT ADULT 50+ ORAL TABLET 1 tab po bid MULTIPLE VITAMINS-MINERALS 36924697891 Active Silvia Arell CHOCOLATE FINISHER OPERATOR Active HYDROCODONE-ACETAMINOPHEN 7.5-325 MG ORAL TABLET TAKE ONE TAB EVERY 6 HOURS BY MOUTH NEEDED FOR PAIN HYDROCODONE-ACETAMINOPHEN 004 77255092 Active Layla Garcia Active LORTAB 7.5-500 MG ORAL TABLET take one po Q6 hours 201 09/12/01 HYDROCODONE-ACETAMINOPHEN 44699672751 No Longer Active Nirmal Robbins RN Active [facility] MELATONIN 5-10 MG ORAL TABLET EXTENDED RELEASE Jair e one by mouth daily at bedtime MELATONIN-PYRIDOXINE 65124438489 No Longer Acti ve Bertrand Patel DO Active VITAMIN E 200 UNIT ORAL CAPSULE 1 cap po qd VITAM IN E 68619335011 No Longer Active Bertrand Patel DO Active B-12 1000 MCG ORAL CAPSULE 1 tab daily CYANOCOB ALAMIN 34996124657 No Longer Active Bertrand Patel DO Active METFORMIN HCL 500 MG ORAL TABLET 1 bid METFOR MIN HCL 63833432753 No Longer Active Bertrand Patel DO Active FUROSEMIDE 20 MG ORAL TABLET 1 pill by mouth daily if needed for edema FUROSEMIDE 12036650877 No Longer Active Bertrand Patel DO Active PRAVASTATIN SODIUM 20 MG ORAL TABLET 1 tablet by mouth daily at bedtime PRAVASTATIN SODIUM 95075888749 No Longer Active Bertrand Patel DO Active AUGMENTIN 875-125 MG ORAL TABLET 1 pill by mouth twice daily 201 09/10/00 AMOXICILLIN-POT CLAVULANATE 75317348699 No Longer Active Yoli Mercado MD PhD Active LEVAQUIN 500 MG ORAL TABLET 1 pill by mouth daily 2013 LEVOFLOXACIN 75476233188 No Longer Active Yoli Mercado MD PhD Acti ve AMLODIPINE BESYLATE 5 MG ORAL TABLET 1 tablet by mouth daily for blood pressure AMLODIPINE BESYLATE 02093125303 Active Adele Feldman PAINTER INTERIOR FINISH Active MICARDIS 80 MG ORAL TABLET 1 tablet daily for blood pressure 07/30 TELMISARTAN 16918878112 Active Adele Feldman PAINTER INTERIOR FINISH Active MICARDIS HCT 80-12.5 MG ORAL TABLET 1 qd TELMISARTAN-HCTZ 47525199012 No Longer Active Bertrand Patel DO Active CINNAMON ALPHA LIPOIC AC CMPLX CAPSULE by mouth twice a day in AM by mouth twice a day in PM ALPHA LIPOIC [id number] CA PS 98568671277 No Longer Active Bertrand Patel DO Active AZITHROMYCIN 500 MG INTRAVENOUS SOLUTION RECONSTITUTED 1 po q da y AZITHROMYCIN 40000797024 No Longer Active Bertrand Patel DO A ctive CYMBALTA 30 MG ORAL CAPSULE DELAYED RELEASE PARTICLES 1 cap by mouth daily DULOXETINE HCL 33483250838 No Longer Active Bertrand marquez DO Active CYMBALTA 60 MG ORAL CAPSULE DELAYED RELEASE PARTICLES 1 cap by mouth daily DULOXETINE HCL 04692929808 Active Adele Feldman PAINTER INTERIOR FINISH Active WELLBUTRIN 75 MG ORAL TABLET 2 times daily BUPR OPION HCL 87994720585 No Longer Active Bertrand Patel DO Active PROAIR HFA 108 (90 Base) MCG/ACT INHALATION AEROSOL SO LUTION take one to two puffs po Q4-6 hour prn cough and shortness of breath ALBUTEROL SULFATE 05386957297 Active Bertrand Patel DO Active AZITHROMYCIN 250 MG ORAL TABLET take 2 po today then take 1 po days 2-5 AZITHROMYCIN 26156913611 No Longer Active Adolfo OSORIO Active PERMETHRIN 5 % EXTERNAL CREAM apply neck to toes tonig ht and then rinse off in morning. repeat at 7 days PERMETHRIN 94566630740 No Longer Active Adolfo OSORIO Active AMOXICILLIN 500 MG ORAL CAPSULE 2 po BID x 10 days 201 07/15/00 AMOXICILLIN 81102181221 No Longer Active Yoli Mercado MD PhD Acti ve ALPRAZOLAM 0.5 MG ORAL TABLET 1 tab by mouth tid ALPRAZOLAM 37578024008 Active Bertrand Patel DO Active INSUPEN ULTRAFIN 31G X 6 MM USE DIRECTED INSULIN PEN NEEDLE 97474776912 No Longer Active Bertrand Patel DO Active TRANSDERM-SCOP (1.5 MG) 1 MG/3DAYS TRANSDERMAL PATCH 7 2 HOUR 1 patch applied behind ear q 3 day SCOPOLAMINE BASE 54007148027 No Lo nger Active Bertrand Patel DO Active MACRODANTIN 100 MG ORAL CAPSULE one p.o. b.i.d. x2 weeks NITROFURANTOIN MACROCRYSTAL 27997087095 No Longer Active Bertrand Patel DO Active MACRODANTIN 100 MG ORAL CAPSULE one p.o. b.i.d. x2 weeks MACRODANTIN 100 MG ORAL CAPSULE 7669131 NITROFURANTOIN MACROCRYSTAL Inactive TRANSDERM-SCOP (1.5 MG) 1 [...] days PERMETHRIN 5 % EXTER NAL CREAM 081438 PERMETHRIN Inactive WELLBUTRIN 75 MG ORAL TABLET 2 times daily WELLBUTRIN 75 MG ORAL TABLET BUPROPION HCL Inactive CYMBALTA 30 MG ORAL CAPSULE DELAYED RELEASE PARTICLES 1 cap by mouth daily CYMBALTA 30 MG ORAL CAPSULE DELAYED RELE ASE PARTICLES 502591 DULOXETINE HCL Inactive AZITHROMYCIN 500 MG INTRAVENOUS SOLUTION RECONSTITUTED 1 po q da y AZITHROMYCIN 500 MG INTRAVENOUS SOLUTION RECONSTITUTED 45789 069766 AZITHROMYCIN Inactive CINNAMON ALPHA LIPOIC AC CMPLX CAPSULE by mouth twice a day in AM by mouth twice a day in PM CINNAMON ALPHA LIPOIC AC CMPLX CAPSULE ALPHA LIPOIC [id number] CAPS Inactive MICARDIS HCT 80-12.5 MG ORAL TABLET 1 qd 07/30 MICARDIS HCT 80-12.5 MG ORAL TABLET 733988 TELMISARTAN-HCTZ Inactive PRAVASTATIN SODIUM 20 MG ORAL TABLET 1 tablet by mouth daily at bedtime PRAVASTATIN SODIUM 20 MG ORAL TABLET 806514 PRAVASTATIN SODIUM Inactive FUROSEMIDE 20 MG ORAL TABLET 1 pill by mouth daily if needed for edema FUROSEMIDE 20 MG ORAL TABLET 009674 FUROSEMIDE Inactive METFORMIN HCL 500 MG ORAL TABLET 1 bid METFORMIN HCL 500 MG ORAL TABLET 306535 METFORMIN HCL Inactive B-12 1000 MCG ORAL CAPSULE 1 tab daily B -12 1000 MCG ORAL CAPSULE CYANOCOBALAMIN Inactive VITAMIN E 200 UNIT ORAL CAPSULE 1 cap po qd 1 VITAMIN E 200 UNIT ORAL CAPSULE 7182579 VITAMIN E Inactive [facility] MELATONIN 5-10 MG [...] po daily AZITHROMYCIN 250 MG ORAL TABLET 883396 AZITHROMY BERNARDO Inactive SYMBICORT 160-4.5 MCG/ACT INHALATION AEROSOL 2 puffs BID 9 SYMBICORT 160-4.5 MCG/ACT INHALATION AEROSOL BUDESONIDE-FORM OTEROL FUMARATE Inactive ALBUTEROL SULFATE (2.5 MG/3ML) 0.083% INHALATION NEBUL IZATION SOLUTION one vial per nebulizer every 4-6 hours as needed ALBUTEROL SULFATE (2.5 MG/3ML) 0.083% INHALATION NEBULIZATION SOLUTION 342002 ALBUTER OL SULFATE Inactive NEBULIZER use as directed NEBULIZER NEBULI ZERS Inactive TESSALON PERLES 100 MG ORAL CAPSULE 1 tablet by mouth 3 times da juan pablo TESSALON PERLES 100 MG ORAL CAPSULE 583254 BENZONATATE Inactive CYCLOBENZAPRINE HCL 10 MG ORAL TABLET Take 1 tab TID PRN for mus triston pain CYCLOBENZAPRINE HCL 10 MG ORAL TABLET 264738 CYCLOBENZA ANUJA HCL Inactive AUGMENTIN 875-125 MG ORAL TABLET 1 po BID x 10 days 20 18/04/06 AUGMENTIN 875-125 MG ORAL TABLET 713900 AMOXICILLIN-POT CLAVULANATE Inactive BACTROBAN 2 % EXTERNAL CREAM Apply to affected area BID for up to 10 days BACTROBAN 2 % EXTERNAL CREAM 565095 MUPIROCIN CA LCIUM Inactive VITAMIN D3 80051 UNIT ORAL CAPSULE 1 pill Week x 4 mo nths for vitamin D deficiency/osteoporosis VITAMIN D3 33655 UNIT ORAL CAPSULE CHOLECALCIFEROL Inactive BENZONATATE 200 MG ORAL CAPSULE 1 three times a day as neede d for cough BENZONATATE 200 MG ORAL CAPSULE 667114 BENZONATA TE Inactive ZITHROMAX Z-MARTIN 250 MG ORAL TABLET 2 today and then 1 daily for 4 days ZITHROMAX Z-MARTIN 250 MG ORAL TABLET 522019 AZITHR OMYCIN Inactive ADDERALL 10 MG ORAL TABLET 1 tab twice daily 2 ADDERALL 10 MG ORAL TABLET 509688 AMPHETAMINE-DEXTROAMPHETAMINE Inactive AMOXICILLIN 500 MG ORAL CAPSULE 2 po BID x 10 days 201 07/15/00 AMOXICILLIN 500 MG ORAL CAPSULE 597482 AMOXICILLIN Inactive AZITHROMYCIN 250 MG ORAL TABLET take 2 po today then take 1 po days 2-5 AZITHROMYCIN 250 MG ORAL TABLET 845143 AZITHROMY BERNARDO Inactive LEVAQUIN 500 MG ORAL TABLET 1 pill by mouth daily 2013 LEVAQUIN 500 MG ORAL TABLET 647863 LEVOFLOXACIN Inactive AUGMENTIN 875-125 MG ORAL TABLET 1 pill by mouth twice daily 201 09/10/00 AUGMENTIN 875-125 MG ORAL TABLET 963094 AMOXICILLIN-POT CLAVULANATE Inactive AUGMENTIN 875-125 MG ORAL TABLET 1 po BID x 10 days 20 19/07/13 AUGMENTIN 875-125 MG ORAL TABLET 256395 AMOXICILLIN-POT CLAVULANATE Inactive PREDNISONE 20 MG ORAL TABLET take 3 tabs daily for 3 d ays, 2 tabs daily for 3 days, 1 tab daily for 3 days, 1/2 tab daily for 3 days 08/02 PREDNISONE 20 MG ORAL TABLET 375867 PREDNISONE Inactive CIPRO 500 MG ORAL TABLET 1 tablet by mouth twice daily CIPRO 500 MG ORAL TABLET 109338 CIPROFLOXACIN HCL Inactive DOXYCYCLINE HYCLATE 100 MG ORAL CAPSULE 1 cap by mouth twice jong ly DOXYCYCLINE HYCLATE 100 MG ORAL CAPSULE 2978565 DOXYCYCL INE HYCLATE Inactive PREDNISONE 20 MG [...] d Encounters Code Encounter Date Provider Facility CPT-62721 Level 3 Est. Patient 12:37:30 ROLL OFF DRIVER Galilea gagnon [facility] CPT-53051 Level 3 Est. Patient 11:40:[address] [facility] CPT-50643 Level 4 Est. Patient 15:33:35 ROLL OFF DRIVER Bertrand marquez [facility] CPT-68453 Level 4 Est. Patient 12:31:54 [facility] Est[facility] Patient 11:27:00 ROLL OFF DRIVER Ike Deluna MD [facility] CPT-24880 Level 3 Est. Patient 08:50:57 ROLL OFF DRIVER Silvia gagnon [facility] CPT-95017 Level 3 Est. Patient 10:04:[address] [facility] CPT-50158 Level 4 Est. Patient 16:02:10 ROLL OFF DRIVER Silvia Are ll [facility] CPT-73463 Level 3 Est. Patient 13:04:54 ROLL OFF DRIVER Silvia Are ll [facility] CPT-27074 Level 3 Est. Patient 12:56:37 CDT Bertrand marquez [facility] CPT-85528 Level 3 Est. Patient 19:12:03 CDT Yoli tolbert MD PhD [facility]-47532 Level 3 Est. Patient 14:36:01 CDT Yoli tolbert MD [facility]-05319 Level 2 Est. Patient 08:00:22 CDT Jcarlos dc MD [facility]-51778 Level 3 Est. Patient 19:06:55 CDT Bertrand marquez [facility] CPT-57421 Level 3 Est. Patient 10:08:23 ROLL OFF DRIVER Bertrand marquez [facility] CPT-34212 Level 3 Est. Patient 16:37:54 ROLL OFF DRIVER Bertrand marquez [facility] CPT-61585 Level 3 Est. Patient 11:31:59 ROLL OFF DRIVER Bertrand marquez [facility] CPT-99781 Level 3 Est. Patient 10:20:08 CDT Adolfo villasenor [facility] CPT-62813 Level 3 Est. Patient 13:45:20 CDT Sanket buckley [facility] CPT-89099 Level 3 Est. Patient 12:51:06 CDT Adolfo villasenor [facility]-39157 Level 3 Est. Patient 11:22:51 ROLL OFF DRIVER Yoli tolbert MD PhD [facility]30 Level 3 Est. Patient 13:33:19 CDT Bertrand marquez [facility] Procedures Code Procedure Name Date Entry Date Standard Desc ription CPT-25738 Wound Culture - LAB USE ONLY 15:45:25 CDT 2 CPT-83808 Venipuncture Draw Fee 10:23:01 CDT CPT-J0696 Rocephin 1000 mg (Ceftriaxone) 16:20:30 ROLL OFF DRIVER CPT-12083 Abx/Therapy Injection 16:20:29 ROLL OFF DRIVER CPT-J0696 Rocephin 1gm Inj Solr 15:51:59 ROLL OFF DRIVER CPT-32096 Chest 2V Frontal and Lat 15:20:28 ROLL OFF DRIVER 07/22 CPT-41939 Breathing Tx 14:51:55 ROLL OFF DRIVER CPT-71728 Breathing Tx 09:57:16 ROLL OFF DRIVER CPT-76217 Knee comp 4/> V 11:58:06 ROLL OFF DRIVER
--- OUTSIDE RECORDS SUMMARY | 2019-11-13 09:56 | XMS REPORT | Clinical Summary ---
Author Author Admin, Enrique Adamson Organization [facility] Address Unknown Phone Unavailable Allergies, [...] 09/09/28 EDEMA LEG ICD-782.3 Inactive Adele Feldman ENVIRONMENTAL MANAGEMENT SPECIALIST 201 01/01/02 SHORTNESS OF BREATH ICD-786.05 Inactive Yoli Mercado MD PhD RIB PAIN, RIGHT SIDED ICD-786.50 Inactive Yoli Mercado MD PhD KNEE PAIN, RIGHT ICD-719.46 Inactive Adele gilmoren ENVIRONMENTAL MANAGEMENT SPECIALIST Knee pain, left ICD-719.46 Inactive Adele damico ENVIRONMENTAL MANAGEMENT SPECIALIST Pharyngitis-Acute ICD-462 Inactive Bertrand Redmond DO Polyuria ICD-788.42 Inactive Yoli Mercado MD P hD Cellulitis, leg, right ICD-682.6 Inactive Yuki Deluna MD Foreign body, ear ICD-931 Inactive Yoli salazar MD PhD Fatigue ICD-780.79 Inactive Ike Deluna MD 201 12/01/06 Headache ICD-784.0 Inactive Adele Feldman SANDHYA 2017 Cough ICD-786.2 Inactive Adele Gaston ARTHUR 06/04 SINUSITIS, ACUTE ICD-461.9 Inactive Ike lange MD Fatigue ICD-780.79 Inactive Adele Feldman ENVIRONMENTAL MANAGEMENT SPECIALIST 2017 Animal bite ICD-919.8 Inactive Adele Feldman LP N Mycoplasma infection ICD-041.81 Inactive Anit a Gaston HUNGN Amenorrhea, secondary ICD-626.0 Inactive Ani ta Gaston ARTHUR Medication List Medication Instructions Start Date Stop Date Generic Name NDC Status Provider Patient Instruction PREDNISONE 20 MG ORAL TABLET Take 3 tabs for 3 days, t hen 2 tabs for 3 days, then 1 tab for 3 days PREDNISONE 38693701441 Active An abdelrahman Sell HALL TENDER Active DOXYCYCLINE HYCLATE 100 MG ORAL CAPSULE 1 cap by mouth twice jong ly DOXYCYCLINE HYCLATE 85610878898 Active Galilea Sell HALL TENDER Active LEVAQUIN 500 MG ORAL TABLET 1 tablet by mouth daily LEVOFLOXACIN 55900764683 Active Bertrand W Jorge DO Active ADDERALL 10 MG ORAL TABLET 1 tab twice daily 2 AMPHETAMINE-DEXTROAMPHETAMINE 16137418143 No Longer Active Nitza Phi llips Scribe Active ZITHROMAX Z-MARTIN 250 MG ORAL TABLET 2 today and then 1 daily for 4 days AZITHROMYCIN 45176921367 No Longer Active Nitza Osman lips Scribe Active BENZONATATE 200 MG ORAL CAPSULE 1 three times a day as neede d for cough BENZONATATE 96975854787 No Longer Active Nitza Osman lips Scribe Active VITAMIN D3 27645 UNIT ORAL CAPSULE 1 pill Week x 4 mo nths for vitamin D deficiency/osteoporosis CHOLECALCIFEROL 76974733820 N o Longer Active Layla Garcia Active BACTROBAN 2 % EXTERNAL CREAM Apply to affected area BID for up to 10 days MUPIROCIN CALCIUM 15098406398 No Longer Active Ike Deluna MD Active CIPRO 500 MG ORAL TABLET 1 tablet by mouth twice daily CIPROFLOXACIN HCL 04986291014 No Longer Active Adriana Bender LPN Active AUGMENTIN 875-125 MG ORAL TABLET 1 po BID x 10 days 18/04/06 AMOXICILLIN-POT CLAVULANATE 74008476375 No Longer Active Adriana Bender LPN Active MODAFINIL 200 MG ORAL TABLET Take 1/2 tab po in the am and 1 /2 tab po at noon MODAFINIL 45339957660 Active DOLLY Nguyen Active CYCLOBENZAPRINE HCL 10 MG ORAL TABLET Take 1 tab TID PRN for mus triston pain CYCLOBENZAPRINE HCL 72304636611 No Longer Active Bertrand Patel DO Active TESSALON PERLES 100 MG ORAL CAPSULE 1 tablet by mouth 3 times da juan pablo BENZONATATE 55790045843 No Longer Active Bertrand Patel DO Ac tive NEBULIZER use as directed NEBULIZERS 56056191449 No Longer Active Bertrand Patel DO Active ALBUTEROL SULFATE (2.5 MG/3ML) 0.083% INHALATION NEBUL IZATION SOLUTION one vial per nebulizer every 4-6 hours as needed ALBUTERO L SULFATE 44302548650 No Longer Active Bertrand Patel DO Active SYMBICORT 160-4.5 MCG/ACT INHALATION AEROSOL 2 puffs BID 9 BUDESONIDE-FORMOTEROL FUMARATE 27482327825 No Longer Active Bertrand Patel DO Active PREDNISONE 20 MG ORAL TABLET take 3 tabs daily for 3 d ays, 2 tabs daily for 3 days, 1 tab daily for 3 days, 1/2 tab daily for 3 days 08/02 PREDNISONE 22623136882 No Longer Active Silvia Vazquez HALL TENDER Active AZITHROMYCIN 250 MG ORAL TABLET Take 2 tabs po today then 1 tab po daily AZITHROMYCIN 28698672592 No Longer Active Silvia Arell HALL TENDER Active AUGMENTIN 875-125 MG ORAL TABLET 1 po BID x 10 days 20 19/07/13 AMOXICILLIN-POT CLAVULANATE 63873017683 No Longer Active Adriana Bender LPN Active CHEWABLE CALCIUM 500-200-40 MG-UNT-MCG ORAL TABLET CHEWABLE 1 chew tab bid CALCIUM-VITAMIN D-VITAMIN K 09147176738 Active Silvia Are ll HALL TENDER Active EQ COMPLETE MULTIVIT ADULT 50+ ORAL TABLET 1 tab po bid MULTIPLE VITAMINS-MINERALS 50109427430 Active Silvia Arell HALL TENDER Active HYDROCODONE-ACETAMINOPHEN 7.5-325 MG ORAL TABLET TAKE ONE TAB EVERY 6 HOURS BY MOUTH NEEDED FOR PAIN HYDROCODONE-ACETAMINOPHEN 004 05911347 Active Layla Garcia Active LORTAB 7.5-500 MG ORAL TABLET take one po Q6 hours 201 09/12/01 HYDROCODONE-ACETAMINOPHEN 18638193596 No Longer Active Nirmal Robbins RN Active [facility] MELATONIN 5-10 MG ORAL TABLET EXTENDED RELEASE Jair e one by mouth daily at bedtime MELATONIN-PYRIDOXINE 65274492144 No Longer Acti ve Bertrand Patel DO Active VITAMIN E 200 UNIT ORAL CAPSULE 1 cap po qd VITAM IN E 75503300547 No Longer Active Bertrand Patel DO Active B-12 1000 MCG ORAL CAPSULE 1 tab daily CYANOCOB ALAMIN 08838346446 No Longer Active Bertrand Patel DO Active METFORMIN HCL 500 MG ORAL TABLET 1 bid METFOR MIN HCL 49615551475 No Longer Active Bertrand Patel DO Active FUROSEMIDE 20 MG ORAL TABLET 1 pill by mouth daily if needed for edema FUROSEMIDE 35643869041 No Longer Active Bertrand Patel DO Active PRAVASTATIN SODIUM 20 MG ORAL TABLET 1 tablet by mouth daily at bedtime PRAVASTATIN SODIUM 68614417963 No Longer Active Bertrand Patel DO Active AUGMENTIN 875-125 MG ORAL TABLET 1 pill by mouth twice daily 201 09/10/00 AMOXICILLIN-POT CLAVULANATE 56155790506 No Longer Active Yoli Mercado MD PhD Active LEVAQUIN 500 MG ORAL TABLET 1 pill by mouth daily 2013 LEVOFLOXACIN 36018140337 No Longer Active Yoli Mercado MD PhD Acti ve AMLODIPINE BESYLATE 5 MG ORAL TABLET 1 tablet by mouth daily for blood pressure AMLODIPINE BESYLATE 52798358522 Active Bertrand Patel DO Active MICARDIS 80 MG ORAL TABLET 1 tablet daily for blood pressure 07/30 TELMISARTAN 03054476504 Active Bertrand Patel DO Active MICARDIS HCT 80-12.5 MG ORAL TABLET 1 qd TELMISARTAN-HCTZ 16825327747 No Longer Active Bertrand Patel DO Active CINNAMON ALPHA LIPOIC AC CMPLX CAPSULE by mouth twice a day in AM by mouth twice a day in PM ALPHA LIPOIC YTRU-UC-[id number] CA PS 95623874071 No Longer Active Bertrand Patel DO Active AZITHROMYCIN 500 MG INTRAVENOUS SOLUTION RECONSTITUTED 1 po q da y AZITHROMYCIN 10865303271 No Longer Active Bertrand Patel DO A ctive CYMBALTA 30 MG ORAL CAPSULE DELAYED RELEASE PARTICLES 1 cap by mouth daily DULOXETINE HCL 75863992239 No Longer Active Bertrand marquez DO Active CYMBALTA 60 MG ORAL CAPSULE DELAYED RELEASE PARTICLES 1 cap by mouth daily DULOXETINE HCL 06528046197 Active Bertrand Patel DO Active WELLBUTRIN 75 MG ORAL TABLET 2 times daily BUPR OPION HCL 38463655241 No Longer Active Bertrand Patel DO Active PROAIR HFA 108 (90 Base) MCG/ACT INHALATION AEROSOL SO LUTION take one to two puffs po Q4-6 hour prn cough and shortness of breath ALBUTEROL SULFATE 09377152657 Active Bertrand Patel DO Active AZITHROMYCIN 250 MG ORAL TABLET take 2 po today then take 1 po days 2-5 AZITHROMYCIN 83663865685 No Longer Active Adolfo OSORIO Active PERMETHRIN 5 % EXTERNAL CREAM apply neck to toes tonig ht and then rinse off in morning. repeat at 7 days PERMETHRIN 27513450953 No Longer Active Adolfo OSORIO Active AMOXICILLIN 500 MG ORAL CAPSULE 2 po BID x 10 days 201 07/15/00 AMOXICILLIN 76385843074 No Longer Active Yoli Mercado MD PhD Acti ve ALPRAZOLAM 0.5 MG ORAL TABLET 1 tab by mouth tid ALPRAZOLAM 97419321785 Active Bertrand Patel DO Active INSUPEN ULTRAFIN 31G X 6 MM USE DIRECTED INSULIN PEN NEEDLE 97022890021 No Longer Active Bertrand Patel DO Active TRANSDERM-SCOP (1.5 MG) 1 MG/3DAYS TRANSDERMAL PATCH 7 2 HOUR 1 patch applied behind ear q 3 day SCOPOLAMINE BASE 32242132537 No Lo nger Active Bertrand Patel DO Active MACRODANTIN 100 MG ORAL CAPSULE one p.o. b.i.d. x2 weeks NITROFURANTOIN MACROCRYSTAL 24425792809 No Longer Active Bertrand Patel DO Active MACRODANTIN 100 MG ORAL CAPSULE one p.o. b.i.d. x2 weeks MACRODANTIN 100 MG ORAL CAPSULE 3373954 NITROFURANTOIN MACROCRYSTAL Inactive TRANSDERM-SCOP (1.5 MG) 1 [...] days PERMETHRIN 5 % EXTER NAL CREAM 683598 PERMETHRIN Inactive WELLBUTRIN 75 MG ORAL TABLET 2 times daily WELLBUTRIN 75 MG ORAL TABLET BUPROPION HCL Inactive CYMBALTA 30 MG ORAL CAPSULE DELAYED RELEASE PARTICLES 1 cap by mouth daily CYMBALTA 30 MG ORAL CAPSULE DELAYED RELE ASE PARTICLES 876444 DULOXETINE HCL Inactive AZITHROMYCIN 500 MG INTRAVENOUS SOLUTION RECONSTITUTED 1 po q da y AZITHROMYCIN 500 MG INTRAVENOUS SOLUTION RECONSTITUTED 41131 299103 AZITHROMYCIN Inactive CINNAMON ALPHA LIPOIC AC CMPLX CAPSULE by mouth twice a day in AM by mouth twice a day in PM CINNAMON ALPHA LIPOIC AC CMPLX CAPSULE ALPHA LIPOIC [id number] CAPS Inactive MICARDIS HCT 80-12.5 MG ORAL TABLET 1 qd 07/30 MICARDIS HCT 80-12.5 MG ORAL TABLET 968842 TELMISARTAN-HCTZ Inactive PRAVASTATIN SODIUM 20 MG ORAL TABLET 1 tablet by mouth daily at bedtime PRAVASTATIN SODIUM 20 MG ORAL TABLET 254108 PRAVASTATIN SODIUM Inactive FUROSEMIDE 20 MG ORAL TABLET 1 pill by mouth daily if needed for edema FUROSEMIDE 20 MG ORAL TABLET 523745 FUROSEMIDE Inactive METFORMIN HCL 500 MG ORAL TABLET 1 bid METFORMIN HCL 500 MG ORAL TABLET 060080 METFORMIN HCL Inactive B-12 1000 MCG ORAL CAPSULE 1 tab daily B -12 1000 MCG ORAL CAPSULE CYANOCOBALAMIN Inactive VITAMIN E 200 UNIT ORAL CAPSULE 1 cap po qd 1 VITAMIN E 200 UNIT ORAL CAPSULE 5957681 VITAMIN E Inactive [facility] MELATONIN 5-10 MG [...] po daily AZITHROMYCIN 250 MG ORAL TABLET 813059 AZITHROMY BERNARDO Inactive SYMBICORT 160-4.5 MCG/ACT INHALATION AEROSOL 2 puffs BID 9 SYMBICORT 160-4.5 MCG/ACT INHALATION AEROSOL BUDESONIDE-FORM OTEROL FUMARATE Inactive ALBUTEROL SULFATE (2.5 MG/3ML) 0.083% INHALATION NEBUL IZATION SOLUTION one vial per nebulizer every 4-6 hours as needed ALBUTEROL SULFATE (2.5 MG/3ML) 0.083% INHALATION NEBULIZATION SOLUTION 756155 ALBUTER OL SULFATE Inactive NEBULIZER use as directed NEBULIZER NEBULI ZERS Inactive TESSALON PERLES 100 MG ORAL CAPSULE 1 tablet by mouth 3 times da juan pablo TESSALON PERLES 100 MG ORAL CAPSULE 509928 BENZONATATE Inactive CYCLOBENZAPRINE HCL 10 MG ORAL TABLET Take 1 tab TID PRN for mus triston pain CYCLOBENZAPRINE HCL 10 MG ORAL TABLET 742154 CYCLOBENZA ANUJA HCL Inactive AUGMENTIN 875-125 MG ORAL TABLET 1 po BID x 10 days 20 18/04/06 AUGMENTIN 875-125 MG ORAL TABLET 150065 AMOXICILLIN-POT CLAVULANATE Inactive BACTROBAN 2 % EXTERNAL CREAM Apply to affected area BID for up to 10 days BACTROBAN 2 % EXTERNAL CREAM 115872 MUPIROCIN CA LCIUM Inactive VITAMIN D3 25861 UNIT ORAL CAPSULE 1 pill Week x 4 mo nths for vitamin D deficiency/osteoporosis VITAMIN D3 25780 UNIT ORAL CAPSULE CHOLECALCIFEROL Inactive BENZONATATE 200 MG ORAL CAPSULE 1 three times a day as neede d for cough BENZONATATE 200 MG ORAL CAPSULE 988419 BENZONATA TE Inactive ZITHROMAX Z-MARTIN 250 MG ORAL TABLET 2 today and then 1 daily for 4 days ZITHROMAX Z-MARTIN 250 MG ORAL TABLET 572641 AZITHR OMYCIN Inactive ADDERALL 10 MG ORAL TABLET 1 tab twice daily 2 ADDERALL 10 MG ORAL TABLET 134258 AMPHETAMINE-DEXTROAMPHETAMINE Inactive AMOXICILLIN 500 MG ORAL CAPSULE 2 po BID x 10 days 201 07/15/00 AMOXICILLIN 500 MG ORAL CAPSULE 765291 AMOXICILLIN Inactive AZITHROMYCIN 250 MG ORAL TABLET take 2 po today then take 1 po days 2-5 AZITHROMYCIN 250 MG ORAL TABLET 639626 AZITHROMY BERNARDO Inactive LEVAQUIN 500 MG ORAL TABLET 1 pill by mouth daily 2013 LEVAQUIN 500 MG ORAL TABLET 877061 LEVOFLOXACIN Inactive AUGMENTIN 875-125 MG ORAL TABLET 1 pill by mouth twice daily 201 09/10/00 AUGMENTIN 875-125 MG ORAL TABLET 351198 AMOXICILLIN-POT CLAVULANATE Inactive AUGMENTIN 875-125 MG ORAL TABLET 1 po BID x 10 days 20 19/07/13 AUGMENTIN 875-125 MG ORAL TABLET 306311 AMOXICILLIN-POT CLAVULANATE Inactive PREDNISONE 20 MG ORAL TABLET take 3 tabs daily for 3 d ays, 2 tabs daily for 3 days, 1 tab daily for 3 days, 1/2 tab daily for 3 days 08/02 PREDNISONE 20 MG ORAL TABLET 873683 PREDNISONE Inactive CIPRO 500 MG ORAL TABLET 1 tablet by mouth twice daily CIPRO 500 MG ORAL TABLET 114539 CIPROFLOXACIN HCL Inactive Vital Signs Date Name Value Unit [...] d Encounters Code Encounter Date Provider Facility CPT-22721 Level 3 Est. Patient 12:37:30 SURFACER Galilea Se [facility] CPT-45883 Level 3 Est. Patient 11:40:23 CDT Bertrand marquez [facility] CPT-65355 Level 4 Est. Patient 15:33:35 SURFACER Bertrand marquez [facility] CPT-83430 Level 4 Est. Patient 12:31:54 CDT Bertrand marquez [facility] CPT-65236 Level 3 Est. Patient 11:27:00 SURFACER Ike Deluna MD [facility] CPT-07337 Level 3 Est. Patient 08:50:57 SURFACER Silvia gagnon [facility] CPT-48040 Level 3 Est. Patient 10:04:13 CDT Bertrand marquez [facility] CPT-83418 Level 4 Est. Patient 16:02:10 [facility] CPT-78547 Level 3 Est. Patient 13:04:54 [facility] CPT-68478 Level 3 Est. Patient 12:56:37 CDT Bertrand marquez [facility] CPT-38792 Level 3 Est. Patient 19:12:03 CDT Yoli tolbert MD [facility] CPT-02187 Level 3 Est. Patient 14:36:01 CDT Yoli tolbert MD [facility] CPT-34089 Level 2 Est. Patient 08:00:22 CDT Jcarlos dc MD [facility] CPT-66883 Level 3 Est. Patient 19:06:55 CDT Bertrand marquez [facility] CPT-22340 Level 3 Est. Patient 10:08:23 SURFACER Bertrand marquez [facility] CPT-01330 Level 3 Est. Patient 16:37:54 SURFACER Bertrand marquez [facility] CPT-34126 Level 3 Est. Patient 11:31:59 SURFACER Bertrand marquez [facility] CPT-52483 Level 3 Est. Patient 10:20:08 CDT Adolfo villasenor [facility] CPT-27296 Level 3 Est. Patient 13:45:20 CDT Sanket buckley [facility] CPT-42513 Level 3 Est. Patient 12:51:06 CDT Adolfo villasenor [facility] CPT-03634 Level 3 Est. Patient 11:22:51 SURFACER Yoli tolbert MD [facility] CPT-08870 Level 3 Est. Patient 13:33:19 CDT Bertrand marquez [facility] Procedures Code Procedure Name Date Entry Date Standard Desc ription CPT-09804 Wound Culture - LAB USE ONLY 15:45:25 CDT 2 CPT-22237 Venipuncture Draw Fee 10:23:01 CDT CPT-J0696 Rocephin 1000 mg (Ceftriaxone) 16:20:30 SURFACER CPT-14223 Abx/Therapy Injection 16:20:29 SURFACER CPT-J0696 Rocephin 1gm Inj Solr 15:51:59 SURFACER CPT-63538 Chest 2V Frontal and Lat 15:20:28 SURFACER 07/22 CPT-99384 Breathing Tx 14:51:55 SURFACER CPT-98799 Breathing Tx 09:57:16 SURFACER CPT-59456 Knee comp 4/> V 11:58:06 SURFACER
--- OUTSIDE RECORDS SUMMARY | 2019-11-13 09:56 | XMS REPORT | Clinical Summary ---
Author Author Admin, Enrique Adamson Organization [employer] Address Unknown Phone Unavailable Allergies, Adverse Reactions, [...] 09/09/28 EDEMA LEG ICD-782.3 Inactive Adele Feldman CERTIFIED TUMOR REGISTRAR 201 01/01/02 SHORTNESS OF BREATH ICD-786.05 Inactive Yoli Mercado MD PhD RIB PAIN, RIGHT SIDED ICD-786.50 Inactive Yoli Mercado MD PhD KNEE PAIN, RIGHT ICD-719.46 Inactive Adele chiu CERTIFIED TUMOR REGISTRAR Knee pain, left ICD-719.46 Inactive Adele damico CERTIFIED TUMOR REGISTRAR Pharyngitis-Acute ICD-462 Inactive Bertrand Redmond DO Polyuria ICD-788.42 Inactive Yoli Mercado MD P hD Cellulitis, leg, right ICD-682.6 Inactive Yuki Deluna MD Foreign body, ear ICD-931 Inactive Yoli salazar MD PhD Fatigue ICD-780.79 Inactive Ike Deluna MD 201 12/01/06 Headache ICD-784.0 Inactive Adele Feldman CERTIFIED TUMOR REGISTRAR 2017 Cough ICD-786.2 Inactive Adele Gaston ARTHUR 06/04 SINUSITIS, ACUTE ICD-461.9 Inactive Ike lange MD Fatigue ICD-780.79 Inactive Adele Feldman CERTIFIED TUMOR REGISTRAR 2017 Animal bite ICD-919.8 Inactive Adele Feldman [...] then 1 tab for 3 days PREDNISONE 33123341724 No Rainer fatou Active Galilea Sell FLEET SERVICE CLERK Active DOXYCYCLINE HYCLATE 100 MG ORAL CAPSULE 1 cap by mouth twice jong ly DOXYCYCLINE HYCLATE 52871159462 Active Galilea Sell FLEET SERVICE CLERK Active LEVAQUIN 500 MG ORAL TABLET 1 tablet by mouth daily LEVOFLOXACIN 20186809055 Active Bertrand Patel DO Active ADDERALL 10 MG ORAL TABLET 1 tab twice daily 2 AMPHETAMINE-DEXTROAMPHETAMINE 76201512746 No Longer Active Nitza Phi llips Scribe Active ZITHROMAX Z-MARTIN 250 MG ORAL TABLET 2 today and then 1 daily for 4 days AZITHROMYCIN 89571661166 No Longer Active Nitza Osman lips Scribe Active BENZONATATE 200 MG ORAL CAPSULE 1 three times a day as neede d for cough BENZONATATE 85130435202 No Longer Active Nitza Osman lips Scribe Active VITAMIN D3 59642 UNIT ORAL CAPSULE 1 pill Week x 4 mo nths for vitamin D deficiency/osteoporosis CHOLECALCIFEROL 88970729558 N o Longer Active Layla Garcia Active BACTROBAN 2 % EXTERNAL CREAM Apply to affected area BID for up to 10 days MUPIROCIN CALCIUM 73045482070 No Longer Active Ike Deluna MD Active CIPRO 500 MG ORAL TABLET 1 tablet by mouth twice daily CIPROFLOXACIN HCL 88142159365 No Longer Active Adriana Bender LPN Active AUGMENTIN 875-125 MG ORAL TABLET 1 po BID x 10 days 18/04/06 AMOXICILLIN-POT CLAVULANATE 37875398230 No Longer Active Adriana Bender LPN Active MODAFINIL 200 MG ORAL TABLET Take 1/2 tab po in the am and 1 /2 tab po at noon MODAFINIL 80748661891 Active DOLLY Nguyen Active CYCLOBENZAPRINE HCL 10 MG ORAL TABLET Take 1 tab TID PRN for mus triston pain CYCLOBENZAPRINE HCL 84479706974 No Longer Active Bertrand Patel DO Active TESSALON PERLES 100 MG ORAL CAPSULE 1 tablet by mouth 3 times da juan pablo BENZONATATE 54523904522 No Longer Active Bertrand Patel DO Ac tive NEBULIZER use as directed NEBULIZERS 59874210664 No Longer Active Bertrand Patel DO Active ALBUTEROL SULFATE (2.5 MG/3ML) 0.083% INHALATION NEBUL IZATION SOLUTION one vial per nebulizer every 4-6 hours as needed ALBUTERO L SULFATE 08475621391 No Longer Active Bertrand Patel DO Active SYMBICORT 160-4.5 MCG/ACT INHALATION AEROSOL 2 puffs BID 9 BUDESONIDE-FORMOTEROL FUMARATE 99483714669 No Longer Active Bertrand Patel DO Active PREDNISONE 20 MG ORAL TABLET take 3 tabs daily for 3 d ays, 2 tabs daily for 3 days, 1 tab daily for 3 days, 1/2 tab daily for 3 days 08/02 PREDNISONE 78312774181 No Longer Active Silvia Vazquez FLEET SERVICE CLERK Active AZITHROMYCIN 250 MG ORAL TABLET Take 2 tabs po today then 1 tab po daily AZITHROMYCIN 48770246650 No Longer Active Silvia Arell FLEET SERVICE CLERK Active AUGMENTIN 875-125 MG ORAL TABLET 1 po BID x 10 days 20 19/07/13 AMOXICILLIN-POT CLAVULANATE 32093230539 No Longer Active Adriana Bender LPN Active CHEWABLE CALCIUM 500-200-40 MG-UNT-MCG ORAL TABLET CHEWABLE 1 chew tab bid CALCIUM-VITAMIN D-VITAMIN K 62779764178 Active Silvai Are ll FLEET SERVICE CLERK Active EQ COMPLETE MULTIVIT ADULT 50+ ORAL TABLET 1 tab po bid MULTIPLE VITAMINS-MINERALS 68561821349 Active Silvia Arell FLEET SERVICE CLERK Active HYDROCODONE-ACETAMINOPHEN 7.5-325 MG ORAL TABLET TAKE ONE TAB EVERY 6 HOURS BY MOUTH NEEDED FOR PAIN HYDROCODONE-ACETAMINOPHEN 004 96724046 Active Layla Garcia Active LORTAB 7.5-500 MG ORAL TABLET take one po Q6 hours 201 09/12/01 HYDROCODONE-ACETAMINOPHEN 57294634375 No Longer Active Nirmal Robbins RN Active [facility] MELATONIN 5-10 MG ORAL TABLET EXTENDED RELEASE Jair e one by mouth daily at bedtime MELATONIN-PYRIDOXINE 21062651238 No Longer Acti ve Bertrand Patel DO Active VITAMIN E 200 UNIT ORAL CAPSULE 1 cap po qd VITAM IN E 05443398943 No Longer Active Bertrand Patel DO Active B-12 1000 MCG ORAL CAPSULE 1 tab daily CYANOCOB ALAMIN 36974139958 No Longer Active Bertrand Patel DO Active METFORMIN HCL 500 MG ORAL TABLET 1 bid METFOR MIN HCL 68465987737 No Longer Active Bertrand Patel DO Active FUROSEMIDE 20 MG ORAL TABLET 1 pill by mouth daily if needed for edema FUROSEMIDE 91935925499 No Longer Active Bertrand Patel DO Active PRAVASTATIN SODIUM 20 MG ORAL TABLET 1 tablet by mouth daily at bedtime PRAVASTATIN SODIUM 10323307860 No Longer Active Bertrand Patel DO Active AUGMENTIN 875-125 MG ORAL TABLET 1 pill by mouth twice daily 201 09/10/00 AMOXICILLIN-POT CLAVULANATE 97588779143 No Longer Active Yoli Mercado MD PhD Active LEVAQUIN 500 MG ORAL TABLET 1 pill by mouth daily 2013 LEVOFLOXACIN 85225000918 No Longer Active Yoli Mercado MD PhD Acti ve AMLODIPINE BESYLATE 5 MG ORAL TABLET 1 tablet by mouth daily for blood pressure AMLODIPINE BESYLATE 91284122928 Active Bertrand Patel DO Active MICARDIS 80 MG ORAL TABLET 1 tablet daily for blood pressure 07/30 TELMISARTAN 93582994666 Active Bertrand Patel DO Active MICARDIS HCT 80-12.5 MG ORAL TABLET 1 qd TELMISARTAN-HCTZ 12765277097 No Longer Active Bertrand Patel DO Active CINNAMON ALPHA LIPOIC AC CMPLX CAPSULE by mouth twice a day in AM by mouth twice a day in PM ALPHA LIPOIC [id number] CA PS 30977463893 No Longer Active Bertrand Patel DO Active AZITHROMYCIN 500 MG INTRAVENOUS SOLUTION RECONSTITUTED 1 po q da y AZITHROMYCIN 07049706107 No Longer Active Bertrand Patel DO A ctive CYMBALTA 30 MG ORAL CAPSULE DELAYED RELEASE PARTICLES 1 cap by mouth daily DULOXETINE HCL 51244250637 No Longer Active Bertrand marquez DO Active CYMBALTA 60 MG ORAL CAPSULE DELAYED RELEASE PARTICLES 1 cap by mouth daily DULOXETINE HCL 60896885509 Active Bertrand Patel DO Active WELLBUTRIN 75 MG ORAL TABLET 2 times daily BUPR OPION HCL 68505917933 No Longer Active Bertrand Patel DO Active PROAIR HFA 108 (90 Base) MCG/ACT INHALATION AEROSOL SO LUTION take one to two puffs po Q4-6 hour prn cough and shortness of breath ALBUTEROL SULFATE 95586365438 Active Bertrand Patel DO Active AZITHROMYCIN 250 MG ORAL TABLET take 2 po today then take 1 po days 2-5 AZITHROMYCIN 96365130135 No Longer Active Adolfo OSORIO Active PERMETHRIN 5 % EXTERNAL CREAM apply neck to toes tonig ht and then rinse off in morning. repeat at 7 days PERMETHRIN 12653583649 No Longer Active Adolfo OSORIO Active AMOXICILLIN 500 MG ORAL CAPSULE 2 po BID x 10 days 201 07/15/00 AMOXICILLIN 04806177859 No Longer Active Yoli Mercado MD PhD Acti ve ALPRAZOLAM 0.5 MG ORAL TABLET 1 tab by mouth tid ALPRAZOLAM 61765698032 Active Bertrand Patel DO Active INSUPEN ULTRAFIN 31G X 6 MM USE DIRECTED INSULIN PEN NEEDLE 63181722941 No Longer Active Bertrand Patel DO Active TRANSDERM-SCOP (1.5 MG) 1 MG/3DAYS TRANSDERMAL PATCH 7 2 HOUR 1 patch applied behind ear q 3 day SCOPOLAMINE BASE 56586384666 No Lo nger Active Bertrand Patel DO Active MACRODANTIN 100 MG ORAL CAPSULE one p.o. b.i.d. x2 weeks NITROFURANTOIN MACROCRYSTAL 88515040233 No Longer Active Bertrand Patel DO Active MACRODANTIN 100 MG ORAL CAPSULE one p.o. b.i.d. x2 weeks MACRODANTIN 100 MG ORAL CAPSULE 1427643 NITROFURANTOIN MACROCRYSTAL Inactive TRANSDERM-SCOP (1.5 MG) 1 [...] days PERMETHRIN 5 % EXTER NAL CREAM 139658 PERMETHRIN Inactive WELLBUTRIN 75 MG ORAL TABLET 2 times daily WELLBUTRIN 75 MG ORAL TABLET BUPROPION HCL Inactive CYMBALTA 30 MG ORAL CAPSULE DELAYED RELEASE PARTICLES 1 cap by mouth daily CYMBALTA 30 MG ORAL CAPSULE DELAYED RELE ASE PARTICLES 070559 DULOXETINE HCL Inactive AZITHROMYCIN 500 MG INTRAVENOUS SOLUTION RECONSTITUTED 1 po q da y AZITHROMYCIN 500 MG INTRAVENOUS SOLUTION RECONSTITUTED 68028 471839 AZITHROMYCIN Inactive CINNAMON ALPHA LIPOIC AC CMPLX CAPSULE by mouth twice a day in AM by mouth twice a day in PM CINNAMON ALPHA LIPOIC AC CMPLX CAPSULE ALPHA LIPOIC [id number] CAPS Inactive MICARDIS HCT 80-12.5 MG ORAL TABLET 1 qd 07/30 MICARDIS HCT 80-12.5 MG ORAL TABLET 663114 TELMISARTAN-HCTZ Inactive PRAVASTATIN SODIUM 20 MG ORAL TABLET 1 tablet by mouth daily at bedtime PRAVASTATIN SODIUM 20 MG ORAL TABLET 526499 PRAVASTATIN SODIUM Inactive FUROSEMIDE 20 MG ORAL TABLET 1 pill by mouth daily if needed for edema FUROSEMIDE 20 MG ORAL TABLET 987123 FUROSEMIDE Inactive METFORMIN HCL 500 MG ORAL TABLET 1 bid METFORMIN HCL 500 MG ORAL TABLET 394594 METFORMIN HCL Inactive B-12 1000 MCG ORAL CAPSULE 1 tab daily B -12 1000 MCG ORAL CAPSULE CYANOCOBALAMIN Inactive VITAMIN E 200 UNIT ORAL CAPSULE 1 cap po qd 1 VITAMIN E 200 UNIT ORAL CAPSULE 0777237 VITAMIN E Inactive [facility] MELATONIN 5-10 MG [...] po daily AZITHROMYCIN 250 MG ORAL TABLET 232595 AZITHROMY BERNARDO Inactive SYMBICORT 160-4.5 MCG/ACT INHALATION AEROSOL 2 puffs BID 9 SYMBICORT 160-4.5 MCG/ACT INHALATION AEROSOL BUDESONIDE-FORM OTEROL FUMARATE Inactive ALBUTEROL SULFATE (2.5 MG/3ML) 0.083% INHALATION NEBUL IZATION SOLUTION one vial per nebulizer every 4-6 hours as needed ALBUTEROL SULFATE (2.5 MG/3ML) 0.083% INHALATION NEBULIZATION SOLUTION 219593 ALBUTER OL SULFATE Inactive NEBULIZER use as directed NEBULIZER NEBULI ZERS Inactive TESSALON PERLES 100 MG ORAL CAPSULE 1 tablet by mouth 3 times da juan pablo TESSALON PERLES 100 MG ORAL CAPSULE 705758 BENZONATATE Inactive CYCLOBENZAPRINE HCL 10 MG ORAL TABLET Take 1 tab TID PRN for mus triston pain CYCLOBENZAPRINE HCL 10 MG ORAL TABLET 824411 CYCLOBENZA ANUJA HCL Inactive AUGMENTIN 875-125 MG ORAL TABLET 1 po BID x 10 days 20 18/04/06 AUGMENTIN 875-125 MG ORAL TABLET 312902 AMOXICILLIN-POT CLAVULANATE Inactive BACTROBAN 2 % EXTERNAL CREAM Apply to affected area BID for up to 10 days BACTROBAN 2 % EXTERNAL CREAM 407259 MUPIROCIN CA LCIUM Inactive VITAMIN D3 98205 UNIT ORAL CAPSULE 1 pill Week x 4 mo nths for vitamin D deficiency/osteoporosis VITAMIN D3 85631 UNIT ORAL CAPSULE CHOLECALCIFEROL Inactive BENZONATATE 200 MG ORAL CAPSULE 1 three times a day as neede d for cough BENZONATATE 200 MG ORAL CAPSULE 241810 BENZONATA TE Inactive ZITHROMAX Z-MARTIN 250 MG ORAL TABLET 2 today and then 1 daily for 4 days ZITHROMAX Z-MARTIN 250 MG ORAL TABLET 584450 AZITHR OMYCIN Inactive ADDERALL 10 MG ORAL TABLET 1 tab twice daily 2 ADDERALL 10 MG ORAL TABLET 223696 AMPHETAMINE-DEXTROAMPHETAMINE Inactive AMOXICILLIN 500 MG ORAL CAPSULE 2 po BID x 10 days 201 07/15/00 AMOXICILLIN 500 MG ORAL CAPSULE 632003 AMOXICILLIN Inactive AZITHROMYCIN 250 MG ORAL TABLET take 2 po today then take 1 po days 2-5 AZITHROMYCIN 250 MG ORAL TABLET 282538 AZITHROMY BERNARDO Inactive LEVAQUIN 500 MG ORAL TABLET 1 pill by mouth daily 2013 LEVAQUIN 500 MG ORAL TABLET 323642 LEVOFLOXACIN Inactive AUGMENTIN 875-125 MG ORAL TABLET 1 pill by mouth twice daily 201 09/10/00 AUGMENTIN 875-125 MG ORAL TABLET 335213 AMOXICILLIN-POT CLAVULANATE Inactive AUGMENTIN 875-125 MG ORAL TABLET 1 po BID x 10 days 20 19/07/13 AUGMENTIN 875-125 MG ORAL TABLET 887475 AMOXICILLIN-POT CLAVULANATE Inactive PREDNISONE 20 MG ORAL TABLET take 3 tabs daily for 3 d ays, 2 tabs daily for 3 days, 1 tab daily for 3 days, 1/2 tab daily for 3 days 08/02 PREDNISONE 20 MG ORAL TABLET 237807 PREDNISONE Inactive CIPRO 500 MG ORAL TABLET 1 tablet by mouth twice daily CIPRO 500 MG ORAL TABLET 907034 CIPROFLOXACIN HCL Inactive PREDNISONE 20 MG ORAL [...] d Encounters Code Encounter Date Provider Facility CPT-40080 Level 3 Est. Patient 12:37:30 [facility] CPT-21492 Level 3 Est. Patient 11:40:23 CDT Bertrand marquez [facility] CPT-54628 Level 4 Est. Patient 15:33:35 CHECKER Bertrand marquez [facility] CPT-22836 Level 4 Est. Patient 12:31:54 CDT [facility] CPT-18692 Level 3 Est. Patient 11:27:00 CHECKER Ike Deluna MD [facility] CPT-05874 Level 3 Est. Patient 08:50:57 CHECKER [facility] CPT-33788 Level 3 Est. Patient 10:04:13 CDT [facility] CPT-43407 Level 4 Est. Patient 16:02:10 CHECKER [facility] CPT-63186 Level 3 Est. Patient 13:04:54 CHECKER [facility] C[facility]-67725 Level 3 Est. Patient 12:56:37 CDT [facility] CPT-31192 Level 3 Est. Patient 19:12:03 CDT Yoli tolbert MD [facility]-04973 Level 3 Est. Patient 14:36:01 CDT Yoli tolbert MD [facility] CPT-08388 Level 2 Est. Patient 08:00:22 CDT Jcarlos dc MD [facility]-14107 Level 3 Est. Patient 19:06:55 CDT Bertrand marquez [facility] CPT-74403 Level 3 Est. Patient 10:08:23 CHECKER Bertrand marquez [facility] CPT-70581 Level 3 Est. Patient 16:37:54 CHECKER Bertrand marquez [facility] CPT-74631 Level 3 Est. Patient 11:31:59 CHECKER Bertrand marquez [facility] CPT-45586 Level 3 Est. Patient 10:20:08 CDT Adolfo villasenor [facility] CPT-58425 Level 3 Est. Patient 13:45:20 CDT Sanket buckley [facility] CPT-86958 Level 3 Est. Patient 12:51:06 CDT Adolfo villasenor [facility] CPT-87697 Level 3 Est. Patient 11:22:51 CHECKER Yoli tolbert MD [facility]-07617 Level 3 Est. Patient 13:33:19 CDT Bertrand marquez [facility] Procedures Code Procedure Name Date Entry Date Standard Desc ription CPT-44472 Wound Culture - LAB USE ONLY 15:45:25 CDT 2 CPT-06286 Venipuncture Draw Fee 10:23:01 CDT CPT-J0696 Rocephin 1000 mg (Ceftriaxone) 16:20:30 CHECKER CPT-09476 Abx/Therapy Injection 16:20:29 CHECKER CPT-J0696 Rocephin 1gm Inj Solr 15:51:59 CHECKER CPT-18242 Chest 2V Frontal and Lat 15:20:28 CHECKER 07/22 CPT-09357 Breathing Tx 14:51:55 CHECKER CPT-38069 Breathing Tx 09:57:16 CHECKER CPT-27612 Knee comp 4/> V 11:58:06 CHECKER
--- OUTSIDE RECORDS SUMMARY | 2019-11-13 09:56 | XMS REPORT | Clinical Summary ---
Author Author Admin, Enrique Adamson Organization [email or web address] Address Unknown Phone Unavailable Allergies, Adverse Reactions, [...] Body Mass Index 50.0-59.9 Adult Active Br fedee Jacklyn Patel DO Body Mass Index 50.0-59.9, adult SCABIES ICD-133.0 Inactive Yoli Mercado MD PhD 201 07/14/20 HEALTH SCREENING ICD-V70.0 Inactive Yoli sabillon MD PhD COUGH ICD-786.2 Inactive Yoli Mercado MD PhD 201 09/09/28 EDEMA LEG ICD-782.3 Inactive Adele Feldman CREDIT COLLECTIONS REP 201 01/01/02 SHORTNESS OF BREATH ICD-786.05 Inactive Yoli Mercado MD PhD RIB PAIN, RIGHT SIDED ICD-786.50 Inactive Yoli Mercado MD PhD KNEE PAIN, RIGHT ICD-719.46 Inactive Adele Esqueda n CREDIT COLLECTIONS REP Knee pain, left ICD-719.46 Inactive [facility] Hold[facility] Ph[facility]itis-Acute ICD-462 Inactive Bertrand Redmond DO Polyuria ICD-788.42 Inactive Yoli Mercado MD P Cellulitis, leg, right ICD-682.6 Inactive Yuki Deluna MD Foreign body, ear ICD-931 Inactive Yoli salazar MD PhD Fatigue ICD-780.79 Inactive Ike Deluna MD 201 12/01/06 Headache ICD-784.0 Inactive Adele Felmdan LPN 2017 Cough ICD-786.2 Inactive Adele Feldman LPN 06/04 SINUSITIS, ACUTE ICD-461.9 Inactive Ike lange MD Fatigue ICD-780.79 Inactive Adele Feldman LPN 2017 FH DIABETES ICD-V18.0 Inactive Yoli Mercado MD PhD 20 14/02/29 SINUSITIS, FRONTAL, ACUTE ICD-461.1 Inactive Yoli Mercado MD PhD Animal bite ICD-919.8 Inactive Adele Chawla Mycoplasma infection ICD-041.81 Inactive Stephane Feldman LPN Amenorrhea, secondary ICD-626.0 Inactive Clotilde Feldman LPN Medication List Medication Instructions Start Date Stop Date Generic Name NDC Status Provider Patient Instruction PREDNISONE 20 MG ORAL TABLET Take 3 tabs for 3 days, t hen 2 tabs for 3 days, then 1 tab for 3 days PREDNISONE 38260188538 Active An abderlahman Sell FOOD TASTER Active DOXYCYCLINE HYCLATE 100 MG ORAL CAPSULE 1 cap by mouth twice jong ly DOXYCYCLINE HYCLATE 55118695162 Active Galilea Sell FOOD TASTER Active LEVAQUIN 500 MG ORAL TABLET 1 tablet by mouth daily LEVOFLOXACIN 02918515736 Active Bertrand Patel DO Active ADDERALL 10 MG ORAL TABLET 1 tab twice daily 2 AMPHETAMINE-DEXTROAMPHETAMINE 95802771046 No Longer Active Nitza Phi llips Scribe Active ZITHROMAX Z-MARTIN 250 MG ORAL TABLET 2 today and then 1 daily for 4 days AZITHROMYCIN 15119323762 No Longer Active Nitza Osman lips Scribe Active BENZONATATE 200 MG ORAL CAPSULE 1 three times a day as neede d for cough BENZONATATE 43740662419 No Longer Active Nitza Osman lips Scribe Active VITAMIN D3 53358 UNIT ORAL CAPSULE 1 pill Week x 4 mo nths for vitamin D deficiency/osteoporosis CHOLECALCIFEROL 64984655281 N o Longer Active Layla Garcia Active BACTROBAN 2 % EXTERNAL CREAM Apply to affected area BID for up to 10 days MUPIROCIN CALCIUM 36208795765 No Longer Active Ike Deluna MD Active CIPRO 500 MG ORAL TABLET 1 tablet by mouth twice daily CIPROFLOXACIN HCL 29402944006 No Longer Active Adriana Bender LPN Active AUGMENTIN 875-125 MG ORAL TABLET 1 po BID x 10 days 18/04/06 AMOXICILLIN-POT CLAVULANATE 52536394445 No Longer Active Adriana Bender LPN Active MODAFINIL 200 MG ORAL TABLET Take 1/2 tab po in the am and 1 /2 tab po at noon MODAFINIL 33062689002 Active DOLLY Nguyen Active CYCLOBENZAPRINE HCL 10 MG ORAL TABLET Take 1 tab TID PRN for mus triston pain CYCLOBENZAPRINE HCL 53839520476 No Longer Active Bertrand Patel DO Active TESSALON PERLES 100 MG ORAL CAPSULE 1 tablet by mouth 3 times da juan pablo BENZONATATE 95505745807 No Longer Active Bertrand Patel DO Ac tive NEBULIZER use as directed NEBULIZERS 65363521810 No Longer Active Bertrand Patel DO Active ALBUTEROL SULFATE (2.5 MG/3ML) 0.083% INHALATION NEBUL IZATION SOLUTION one vial per nebulizer every 4-6 hours as needed ALBUTERO L SULFATE 50471345048 No Longer Active Bertrand Patel DO Active SYMBICORT 160-4.5 MCG/ACT INHALATION AEROSOL 2 puffs BID 9 BUDESONIDE-FORMOTEROL FUMARATE 83273039155 No Longer Active Bertrand Patel DO Active PREDNISONE 20 MG ORAL TABLET take 3 tabs daily for 3 d ays, 2 tabs daily for 3 days, 1 tab daily for 3 days, 1/2 tab daily for 3 days 08/02 PREDNISONE 53962562791 No Longer Active Silvia Vazquez FOOD TASTER Active AZITHROMYCIN 250 MG ORAL TABLET Take 2 tabs po today then 1 tab po daily AZITHROMYCIN 04573046731 No Longer Active Silvia Arell FOOD TASTER Active AUGMENTIN 875-125 MG ORAL TABLET 1 po BID x 10 days 20 19/07/13 AMOXICILLIN-POT CLAVULANATE 79210471838 No Longer Active Adriana Bender LPN Active CHEWABLE CALCIUM 500-200-40 MG-UNT-MCG ORAL TABLET CHEWABLE 1 chew tab bid CALCIUM-VITAMIN D-VITAMIN K 08189932575 Active Silvia Are ll FOOD TASTER Active EQ COMPLETE MULTIVIT ADULT 50+ ORAL TABLET 1 tab po bid MULTIPLE VITAMINS-MINERALS 27277506037 Active Silvia Arell FOOD TASTER Active HYDROCODONE-ACETAMINOPHEN 7.5-325 MG ORAL TABLET TAKE ONE TAB EVERY 6 HOURS BY MOUTH NEEDED FOR PAIN HYDROCODONE-ACETAMINOPHEN 004 68139155 Active Layla Garcia Active LORTAB 7.5-500 MG ORAL TABLET take one po Q6 hours 201 09/12/01 HYDROCODONE-ACETAMINOPHEN 18036863288 No Longer Active Nirmal Robbins RN Active [facility] MELATONIN 5-10 MG ORAL TABLET EXTENDED RELEASE Jair e one by mouth daily at bedtime MELATONIN-PYRIDOXINE 61082904902 No Longer Acti ve Bertrand Patel DO Active VITAMIN E 200 UNIT ORAL CAPSULE 1 cap po qd VITAM IN E 11835502646 No Longer Active Bertrand Patel DO Active B-12 1000 MCG ORAL CAPSULE 1 tab daily CYANOCOB ALAMIN 03953505168 No Longer Active Bertrand Patel DO Active METFORMIN HCL 500 MG ORAL TABLET 1 bid METFOR MIN HCL 25367191990 No Longer Active Bertrand Patel DO Active FUROSEMIDE 20 MG ORAL TABLET 1 pill by mouth daily if needed for edema FUROSEMIDE 30772264357 No Longer Active Bertrand Patel DO Active PRAVASTATIN SODIUM 20 MG ORAL TABLET 1 tablet by mouth daily at bedtime PRAVASTATIN SODIUM 13871527074 No Longer Active Bertrand Patel DO Active AUGMENTIN 875-125 MG ORAL TABLET 1 pill by mouth twice daily 201 09/10/00 AMOXICILLIN-POT CLAVULANATE 02407130671 No Longer Active Yoli Mercado MD PhD Active LEVAQUIN 500 MG ORAL TABLET 1 pill by mouth daily 2013 LEVOFLOXACIN 17641122670 No Longer Active Yoli Mercado MD PhD Acti ve AMLODIPINE BESYLATE 5 MG ORAL TABLET 1 tablet by mouth daily for blood pressure AMLODIPINE BESYLATE 87748352717 Active Bertrand Patel DO Active MICARDIS 80 MG ORAL TABLET 1 tablet daily for blood pressure 07/30 TELMISARTAN 44812004894 Active Bertrand Patel DO Active MICARDIS HCT 80-12.5 MG ORAL TABLET 1 qd TELMISARTAN-HCTZ 83469573508 No Longer Active Bertrand Patel DO Active CINNAMON ALPHA LIPOIC AC CMPLX CAPSULE by mouth twice a day in AM by mouth twice a day in PM ALPHA LIPOIC DEGF-GD-HOEHTQGS CA PS 51820445636 No Longer Active Bertrand Patel DO Active AZITHROMYCIN 500 MG INTRAVENOUS SOLUTION RECONSTITUTED 1 po q da y AZITHROMYCIN 17635371744 No Longer Active Bertrand Patel DO A ctive CYMBALTA 30 MG ORAL CAPSULE DELAYED RELEASE PARTICLES 1 cap by mouth daily DULOXETINE HCL 63261873825 No Longer Active Bertrand marquez DO Active CYMBALTA 60 MG ORAL CAPSULE DELAYED RELEASE PARTICLES 1 cap by mouth daily DULOXETINE HCL 83117262255 Active Bertrand Patel DO Active WELLBUTRIN 75 MG ORAL TABLET 2 times daily BUPR OPION HCL 30858652780 No Longer Active Bertrand Patel DO Active PROAIR HFA 108 (90 Base) MCG/ACT INHALATION AEROSOL SO LUTION take one to two puffs po Q4-6 hour prn cough and shortness of breath ALBUTEROL SULFATE 07448538619 Active Bertrand Patel DO Active AZITHROMYCIN 250 MG ORAL TABLET take 2 po today then take 1 po days 2-5 AZITHROMYCIN 87203770180 No Longer Active Adolfo OSORIO Active PERMETHRIN 5 % EXTERNAL CREAM apply neck to toes tonig ht and then rinse off in morning. repeat at 7 days PERMETHRIN 86269409775 No Longer Active Adolfo OSORIO Active AMOXICILLIN 500 MG ORAL CAPSULE 2 po BID x 10 days 201 07/15/00 AMOXICILLIN 56954651699 No Longer Active Yoli Mercado MD PhD Acti ve ALPRAZOLAM 0.5 MG ORAL TABLET 1 tab by mouth tid ALPRAZOLAM 37739768705 Active Bertrand Patel DO Active INSUPEN ULTRAFIN 31G X 6 MM USE DIRECTED INSULIN PEN NEEDLE 31373512051 No Longer Active Bertrand Patel DO Active TRANSDERM-SCOP (1.5 MG) 1 MG/3DAYS TRANSDERMAL PATCH 7 2 HOUR 1 patch applied behind ear q 3 day SCOPOLAMINE BASE 18227164349 No Lo nger Active Bertrand Patel DO Active MACRODANTIN 100 MG ORAL CAPSULE one p.o. b.i.d. x2 weeks NITROFURANTOIN MACROCRYSTAL 59078692830 No Longer Active Bertrand Patel DO Active MACRODANTIN 100 MG ORAL CAPSULE one p.o. b.i.d. x2 weeks MACRODANTIN 100 MG ORAL CAPSULE 4610054 NITROFURANTOIN MACROCRYSTAL Inactive TRANSDERM-SCOP (1.5 MG) 1 [...] days PERMETHRIN 5 % EXTER NAL CREAM 455236 PERMETHRIN Inactive WELLBUTRIN 75 MG ORAL TABLET 2 times daily WELLBUTRIN 75 MG ORAL TABLET BUPROPION HCL Inactive CYMBALTA 30 MG ORAL CAPSULE DELAYED RELEASE PARTICLES 1 cap by mouth daily CYMBALTA 30 MG ORAL CAPSULE DELAYED RELE ASE PARTICLES 582064 DULOXETINE HCL Inactive AZITHROMYCIN 500 MG INTRAVENOUS SOLUTION RECONSTITUTED 1 po q da y AZITHROMYCIN 500 MG INTRAVENOUS SOLUTION RECONSTITUTED 24990 224144 AZITHROMYCIN Inactive CINNAMON ALPHA LIPOIC AC CMPLX CAPSULE by mouth twice a day in AM by mouth twice a day in PM CINNAMON ALPHA LIPOIC AC CMPLX CAPSULE ALPHA LIPOIC OUKA-CW-UPWDCLAA CAPS Inactive MICARDIS HCT 80-12.5 MG ORAL TABLET 1 qd 07/30 MICARDIS HCT 80-12.5 MG ORAL TABLET 241180 TELMISARTAN-HCTZ Inactive PRAVASTATIN SODIUM 20 MG ORAL TABLET 1 tablet by mouth daily at bedtime PRAVASTATIN SODIUM 20 MG ORAL TABLET 998399 PRAVASTATIN SODIUM Inactive FUROSEMIDE 20 MG ORAL TABLET 1 pill by mouth daily if needed for edema FUROSEMIDE 20 MG ORAL TABLET 359861 FUROSEMIDE Inactive METFORMIN HCL 500 MG ORAL TABLET 1 bid METFORMIN HCL 500 MG ORAL TABLET 559260 METFORMIN HCL Inactive B-12 1000 MCG ORAL CAPSULE 1 tab daily B -12 1000 MCG ORAL CAPSULE CYANOCOBALAMIN Inactive VITAMIN E 200 UNIT ORAL CAPSULE 1 cap po qd 1 VITAMIN E 200 UNIT ORAL CAPSULE 2848916 VITAMIN E Inactive [facility] MELATONIN 5-10 MG [...] po daily AZITHROMYCIN 250 MG ORAL TABLET 348362 AZITHROMY BERNARDO Inactive SYMBICORT 160-4.5 MCG/ACT INHALATION AEROSOL 2 puffs BID 9 SYMBICORT 160-4.5 MCG/ACT INHALATION AEROSOL BUDESONIDE-FORM OTEROL FUMARATE Inactive ALBUTEROL SULFATE (2.5 MG/3ML) 0.083% INHALATION NEBUL IZATION SOLUTION one vial per nebulizer every 4-6 hours as needed ALBUTEROL SULFATE (2.5 MG/3ML) 0.083% INHALATION NEBULIZATION SOLUTION 808136 ALBUTER OL SULFATE Inactive NEBULIZER use as directed NEBULIZER NEBULI ZERS Inactive TESSALON PERLES 100 MG ORAL CAPSULE 1 tablet by mouth 3 times da juan pablo TESSALON PERLES 100 MG ORAL CAPSULE 981489 BENZONATATE Inactive CYCLOBENZAPRINE HCL 10 MG ORAL TABLET Take 1 tab TID PRN for mus triston pain CYCLOBENZAPRINE HCL 10 MG ORAL TABLET 485207 CYCLOBENZA ANUJA HCL Inactive AUGMENTIN 875-125 MG ORAL TABLET 1 po BID x 10 days 20 18/04/06 AUGMENTIN 875-125 MG ORAL TABLET 151347 AMOXICILLIN-POT CLAVULANATE Inactive BACTROBAN 2 % EXTERNAL CREAM Apply to affected area BID for up to 10 days BACTROBAN 2 % EXTERNAL CREAM 399849 MUPIROCIN CA LCIUM Inactive VITAMIN D3 83678 UNIT ORAL CAPSULE 1 pill Week x 4 mo nths for vitamin D deficiency/osteoporosis VITAMIN D3 02640 UNIT ORAL CAPSULE CHOLECALCIFEROL Inactive BENZONATATE 200 MG ORAL CAPSULE 1 three times a day as neede d for cough BENZONATATE 200 MG ORAL CAPSULE 892232 BENZONATA TE Inactive ZITHROMAX Z-MARTIN 250 MG ORAL TABLET 2 today and then 1 daily for 4 days ZITHROMAX Z-MARTIN 250 MG ORAL TABLET 913830 AZITHR OMYCIN Inactive ADDERALL 10 MG ORAL TABLET 1 tab twice daily 2 ADDERALL 10 MG ORAL TABLET 192861 AMPHETAMINE-DEXTROAMPHETAMINE Inactive AMOXICILLIN 500 MG ORAL CAPSULE 2 po BID x 10 days 201 07/15/00 AMOXICILLIN 500 MG ORAL CAPSULE 799223 AMOXICILLIN Inactive AZITHROMYCIN 250 MG ORAL TABLET take 2 po today then take 1 po days 2-5 AZITHROMYCIN 250 MG ORAL TABLET 502600 AZITHROMY BERNARDO Inactive LEVAQUIN 500 MG ORAL TABLET 1 pill by mouth daily 2013 LEVAQUIN 500 MG ORAL TABLET 168324 LEVOFLOXACIN Inactive AUGMENTIN 875-125 MG ORAL TABLET 1 pill by mouth twice daily 201 09/10/00 AUGMENTIN 875-125 MG ORAL TABLET 135623 AMOXICILLIN-POT CLAVULANATE Inactive AUGMENTIN 875-125 MG ORAL TABLET 1 po BID x 10 days 20 19/07/13 AUGMENTIN 875-125 MG ORAL TABLET 654795 AMOXICILLIN-POT CLAVULANATE Inactive PREDNISONE 20 MG ORAL TABLET take 3 tabs daily for 3 d ays, 2 tabs daily for 3 days, 1 tab daily for 3 days, 1/2 tab daily for 3 days 08/02 PREDNISONE 20 MG ORAL TABLET 455013 PREDNISONE Inactive CIPRO 500 MG ORAL TABLET 1 tablet by mouth twice daily CIPRO 500 MG ORAL TABLET 516478 CIPROFLOXACIN HCL Inactive Vital Signs Date Name [...] d Encounters Code Encounter Date Provider Facility CPT-94890 Level 3 Est. Patient 12:37:30 GRAPPLE OPERATOR Galilea Se [facility] Lizy [facility] CPT-79317 Level 3 Est. Patient 11:40:23 CDT Bertrand marquez Liz[facility] CPT-29547 Level 4 Est. Patient 15:33:35 GRAPPLE OPERATOR Bertrand marquez Liz[facility] CPT-75985 Level 4 Est. Patient 12:31:54 CDT Bertrand marquez Lizy [facility] CPT-13559 Level 3 Est. Patient 11:27:00 GRAPPLE OPERATOR Ike Deluna MD [facility] CPT-06642 Level 3 Est. Patient 08:50:57 GRAPPLE OPERATOR Silvia gagnon [facility] Lizy [facility] CPT-12798 Level 3 Est. Patient 10:04:13 CDT Bertrand marquez [email or web address] [facility] CPT-26447 Level 4 Est. Patient 16:02:10 GRAPPLE OPERATOR Silvia Are kalin [facility] Lizy [facility] CPT-74119 Level 3 Est. Patient 13:04:54 GRAPPLE OPERATOR Silvia Are [facility] Lizy [facility] CPT-17425 Level 3 Est. Patient 12:56:37 CDT Bertrand marquez [facility] CPT-27987 Level 3 Est. Patient 19:12:03 CDT Yoli tolbert MD [facility] CPT-62077 Level 3 Est. Patient 14:36:01 CDT Yoli tolbert MD [facility] CPT-92824 Level 2 Est. Patient 08:00:22 CDT Jcarlos dc MD [facility]-78447 Level 3 Est. Patient 19:06:55 CDT Bertrand marquez [facility] CPT-78448 Level 3 Est. Patient 10:08:23 GRAPPLE OPERATOR Bertrand marquez [facility] CPT-27151 Level 3 Est. Patient 16:37:54 GRAPPLE OPERATOR Bertrand marquez [facility] CPT-66772 Level 3 Est. Patient 11:31:59 GRAPPLE OPERATOR Bertrand marquez [facility] CPT-96118 Level 3 Est. Patient 10:20:08 CDT Adolfo villasenor [facility] CPT-34078 Level 3 Est. Patient 13:45:20 CDT Sanket buckley [facility] CPT-09371 Level 3 Est. Patient 12:51:06 CDT Adolfo villasenor [facility] CPT-09788 Level 3 Est. Patient 11:22:51 GRAPPLE OPERATOR Yoli tolbert MD [facility] CPT-29667 Level 3 Est. Patient 13:33:19 CDT Bertrand marquez [facility] Procedures Code Procedure Name Date Entry Date Standard Desc ription CPT-87536 Wound Culture - LAB USE ONLY 15:45:25 CDT 2 CPT-16635 Venipuncture Draw Fee 10:23:01 CDT CPT-J0696 Rocephin 1000 mg (Ceftriaxone) 16:20:30 GRAPPLE OPERATOR CPT-94973 Abx/Therapy Injection 16:20:29 GRAPPLE OPERATOR CPT-J0696 Rocephin 1gm Inj Solr 15:51:59 GRAPPLE OPERATOR CPT-23126 Chest 2V Frontal and Lat 15:20:28 GRAPPLE OPERATOR 07/22 CPT-01837 Breathing Tx 14:51:55 GRAPPLE OPERATOR CPT-89022 Breathing Tx 09:57:16 GRAPPLE OPERATOR CPT-16567 Knee comp 4/> V 11:58:06 GRAPPLE OPERATOR
--- OUTSIDE RECORDS SUMMARY | 2019-11-13 09:57 | XMS REPORT | Clinical Summary ---
Author Author Admin, Enrique Adamson Organization [employer] Address Unknown Phone Unavailable Allergies, Adverse Reactions, [...] 09/09/28 EDEMA LEG ICD-782.3 Inactive Adele Feldman MEDICAL DOCTOR MD/MEDICAL DIRECTOR 201 01/01/02 SHORTNESS OF BREATH ICD-786.05 Inactive Yoli Mercado MD PhD RIB PAIN, RIGHT SIDED ICD-786.50 Inactive Yoli Mercado MD PhD KNEE PAIN, RIGHT ICD-719.46 Inactive Adele chiu MEDICAL DOCTOR MD/MEDICAL DIRECTOR Knee pain, left ICD-719.46 Inactive Adele damico MEDICAL DOCTOR MD/MEDICAL DIRECTOR Pharyngitis-Acute ICD-462 Inactive Bertrand Redmond DO Polyuria ICD-788.42 Inactive Yoli Mercado MD P hD Cellulitis, leg, right ICD-682.6 Inactive Yuki Deluna MD Foreign body, ear ICD-931 Inactive Yoli salazar MD PhD Fatigue ICD-780.79 Inactive Ike Deluna MD 201 12/01/06 Headache ICD-784.0 Inactive Adele Feldman MEDICAL DOCTOR MD/MEDICAL DIRECTOR 2017 Cough ICD-786.2 Inactive Adele Gaston ARTHUR 06/04 SINUSITIS, ACUTE ICD-461.9 Inactive Ike lange MD Fatigue ICD-780.79 Inactive Adele Feldman MEDICAL DOCTOR MD/MEDICAL DIRECTOR 2017 Animal bite ICD-919.8 Inactive Adele Feldman [...] then 1 tab for 3 days PREDNISONE 96049991562 Active An abdelrahman Sell FAST FOOD SALES ASSISTANT Active DOXYCYCLINE HYCLATE 100 MG ORAL CAPSULE 1 cap by mouth twice jong ly DOXYCYCLINE HYCLATE 84534848518 Active Galilea Sell FAST FOOD SALES ASSISTANT Active LEVAQUIN 500 MG ORAL TABLET 1 tablet by mouth daily LEVOFLOXACIN 71720160009 Active Bertrand Patel DO Active ADDERALL 10 MG ORAL TABLET 1 tab twice daily 2 AMPHETAMINE-DEXTROAMPHETAMINE 85527347853 No Longer Active Nitza Phi llips Scribe Active ZITHROMAX Z-MARTIN 250 MG ORAL TABLET 2 today and then 1 daily for 4 days AZITHROMYCIN 28033269543 No Longer Active Nitza Osman lips Scribe Active BENZONATATE 200 MG ORAL CAPSULE 1 three times a day as neede d for cough BENZONATATE 88886700411 No Longer Active Nitza Osman lips Scribe Active VITAMIN D3 35187 UNIT ORAL CAPSULE 1 pill Week x 4 mo nths for vitamin D deficiency/osteoporosis CHOLECALCIFEROL 18612485212 N o Longer Active Layla Garcia Active BACTROBAN 2 % EXTERNAL CREAM Apply to affected area BID for up to 10 days MUPIROCIN CALCIUM 99738428871 No Longer Active Ike Deluna MD Active CIPRO 500 MG ORAL TABLET 1 tablet by mouth twice daily CIPROFLOXACIN HCL 98143164621 No Longer Active Adriana Bender LPN Active AUGMENTIN 875-125 MG ORAL TABLET 1 po BID x 10 days 18/04/06 AMOXICILLIN-POT CLAVULANATE 54121747711 No Longer Active Adriana Bender LPN Active MODAFINIL 200 MG ORAL TABLET Take 1/2 tab po in the am and 1 /2 tab po at noon MODAFINIL 18881185365 Active DOLLY Nguyen Active CYCLOBENZAPRINE HCL 10 MG ORAL TABLET Take 1 tab TID PRN for mus triston pain CYCLOBENZAPRINE HCL 45032869637 No Longer Active Bertrand Ptael DO Active TESSALON PERLES 100 MG ORAL CAPSULE 1 tablet by mouth 3 times da juan pablo BENZONATATE 61179525781 No Longer Active Bertrand Patel DO Ac tive NEBULIZER use as directed NEBULIZERS 17385750467 No Longer Active Bertrand Patel DO Active ALBUTEROL SULFATE (2.5 MG/3ML) 0.083% INHALATION NEBUL IZATION SOLUTION one vial per nebulizer every 4-6 hours as needed ALBUTERO L SULFATE 42159535212 No Longer Active Bertrand Patel DO Active SYMBICORT 160-4.5 MCG/ACT INHALATION AEROSOL 2 puffs BID 9 BUDESONIDE-FORMOTEROL FUMARATE 25474738454 No Longer Active Bertrand Patel DO Active PREDNISONE 20 MG ORAL TABLET take 3 tabs daily for 3 d ays, 2 tabs daily for 3 days, 1 tab daily for 3 days, 1/2 tab daily for 3 days 08/02 PREDNISONE 22803271486 No Longer Active Silvia Vazquez FAST FOOD SALES ASSISTANT Active AZITHROMYCIN 250 MG ORAL TABLET Take 2 tabs po today then 1 tab po daily AZITHROMYCIN 29063687971 No Longer Active Silvia Arell FAST FOOD SALES ASSISTANT Active AUGMENTIN 875-125 MG ORAL TABLET 1 po BID x 10 days 20 19/07/13 AMOXICILLIN-POT CLAVULANATE 45714143781 No Longer Active Adriana Bender LPN Active CHEWABLE CALCIUM 500-200-40 MG-UNT-MCG ORAL TABLET CHEWABLE 1 chew tab bid CALCIUM-VITAMIN D-VITAMIN K 77206911005 Active Silvia Are ll FAST FOOD SALES ASSISTANT Active EQ COMPLETE MULTIVIT ADULT 50+ ORAL TABLET 1 tab po bid MULTIPLE VITAMINS-MINERALS 78655832994 Active Silvia Arell FAST FOOD SALES ASSISTANT Active HYDROCODONE-ACETAMINOPHEN 7.5-325 MG ORAL TABLET TAKE ONE TAB EVERY 6 HOURS BY MOUTH NEEDED FOR PAIN HYDROCODONE-ACETAMINOPHEN 004 74134862 Active Layla Garcia Active LORTAB 7.5-500 MG ORAL TABLET take one po Q6 hours 201 09/12/01 HYDROCODONE-ACETAMINOPHEN 62601469156 No Longer Active Nirmal Robbins RN Active [facility] MELATONIN 5-10 MG ORAL TABLET EXTENDED RELEASE Jair e one by mouth daily at bedtime MELATONIN-PYRIDOXINE 42921058778 No Longer Acti ve Bertrand Patel DO Active VITAMIN E 200 UNIT ORAL CAPSULE 1 cap po qd VITAM IN E 45418050999 No Longer Active Bertrand Patel DO Active B-12 1000 MCG ORAL CAPSULE 1 tab daily CYANOCOB ALAMIN 78033116050 No Longer Active Bertrand Patel DO Active METFORMIN HCL 500 MG ORAL TABLET 1 bid METFOR MIN HCL 03086215360 No Longer Active Bertrand Patel DO Active FUROSEMIDE 20 MG ORAL TABLET 1 pill by mouth daily if needed for edema FUROSEMIDE 58548968888 No Longer Active Bertrand Patel DO Active PRAVASTATIN SODIUM 20 MG ORAL TABLET 1 tablet by mouth daily at bedtime PRAVASTATIN SODIUM 67341319913 No Longer Active Bertrand Patel DO Active AUGMENTIN 875-125 MG ORAL TABLET 1 pill by mouth twice daily 201 09/10/00 AMOXICILLIN-POT CLAVULANATE 40820103091 No Longer Active Yoli Mercado MD PhD Active LEVAQUIN 500 MG ORAL TABLET 1 pill by mouth daily 2013 LEVOFLOXACIN 79795694934 No Longer Active Yoli Mercado MD PhD Acti ve AMLODIPINE BESYLATE 5 MG ORAL TABLET 1 tablet by mouth daily for blood pressure AMLODIPINE BESYLATE 82782823503 Active Bertrand Patel DO Active MICARDIS 80 MG ORAL TABLET 1 tablet daily for blood pressure 07/30 TELMISARTAN 10910662106 Active Bertrand Patel DO Active MICARDIS HCT 80-12.5 MG ORAL TABLET 1 qd TELMISARTAN-HCTZ 44811980252 No Longer Active Bertrand Patel DO Active CINNAMON ALPHA LIPOIC AC CMPLX CAPSULE by mouth twice a day in AM by mouth twice a day in PM ALPHA LIPOIC [id number] CA PS 01448509302 No Longer Active Bertrand Patel DO Active AZITHROMYCIN 500 MG INTRAVENOUS SOLUTION RECONSTITUTED 1 po q da y AZITHROMYCIN 64212669656 No Longer Active Bertrand Patel DO A ctive CYMBALTA 30 MG ORAL CAPSULE DELAYED RELEASE PARTICLES 1 cap by mouth daily DULOXETINE HCL 46282532354 No Longer Active Bertrand marquez DO Active CYMBALTA 60 MG ORAL CAPSULE DELAYED RELEASE PARTICLES 1 cap by mouth daily DULOXETINE HCL 06730990147 Active Bertrand Patel DO Active WELLBUTRIN 75 MG ORAL TABLET 2 times daily BUPR OPION HCL 25892841138 No Longer Active Bertrand Patel DO Active PROAIR HFA 108 (90 Base) MCG/ACT INHALATION AEROSOL SO LUTION take one to two puffs po Q4-6 hour prn cough and shortness of breath ALBUTEROL SULFATE 18357703230 Active Bertrand Patel DO Active AZITHROMYCIN 250 MG ORAL TABLET take 2 po today then take 1 po days 2-5 AZITHROMYCIN 71737657170 No Longer Active Adolfo OSORIO Active PERMETHRIN 5 % EXTERNAL CREAM apply neck to toes tonig ht and then rinse off in morning. repeat at 7 days PERMETHRIN 58541157087 No Longer Active Adolfo OSORIO Active AMOXICILLIN 500 MG ORAL CAPSULE 2 po BID x 10 days 201 07/15/00 AMOXICILLIN 56304661165 No Longer Active Yoli Mercado MD PhD Acti ve ALPRAZOLAM 0.5 MG ORAL TABLET 1 tab by mouth tid ALPRAZOLAM 24856297306 Active Bertrand Patel DO Active INSUPEN ULTRAFIN 31G X 6 MM USE DIRECTED INSULIN PEN NEEDLE 49143222538 No Longer Active Bertrand Patel DO Active TRANSDERM-SCOP (1.5 MG) 1 MG/3DAYS TRANSDERMAL PATCH 7 2 HOUR 1 patch applied behind ear q 3 day SCOPOLAMINE BASE 05611531171 No Lo nger Active Bertrand Patel DO Active MACRODANTIN 100 MG ORAL CAPSULE one p.o. b.i.d. x2 weeks NITROFURANTOIN MACROCRYSTAL 45896756567 No Longer Active Bertrand Patel DO Active MACRODANTIN 100 MG ORAL CAPSULE one p.o. b.i.d. x2 weeks MACRODANTIN 100 MG ORAL CAPSULE 2683829 NITROFURANTOIN MACROCRYSTAL Inactive TRANSDERM-SCOP (1.5 MG) 1 [...] days PERMETHRIN 5 % EXTER NAL CREAM 892937 PERMETHRIN Inactive WELLBUTRIN 75 MG ORAL TABLET 2 times daily WELLBUTRIN 75 MG ORAL TABLET BUPROPION HCL Inactive CYMBALTA 30 MG ORAL CAPSULE DELAYED RELEASE PARTICLES 1 cap by mouth daily CYMBALTA 30 MG ORAL CAPSULE DELAYED RELE ASE PARTICLES 985993 DULOXETINE HCL Inactive AZITHROMYCIN 500 MG INTRAVENOUS SOLUTION RECONSTITUTED 1 po q da y AZITHROMYCIN 500 MG INTRAVENOUS SOLUTION RECONSTITUTED 89711 235501 AZITHROMYCIN Inactive CINNAMON ALPHA LIPOIC AC CMPLX CAPSULE by mouth twice a day in AM by mouth twice a day in PM CINNAMON ALPHA LIPOIC AC CMPLX CAPSULE ALPHA LIPOIC ROES-LO-ISHRXULZ CAPS Inactive MICARDIS HCT 80-12.5 MG ORAL TABLET 1 qd 07/30 MICARDIS HCT 80-12.5 MG ORAL TABLET 893528 TELMISARTAN-HCTZ Inactive PRAVASTATIN SODIUM 20 MG ORAL TABLET 1 tablet by mouth daily at bedtime PRAVASTATIN SODIUM 20 MG ORAL TABLET 523178 PRAVASTATIN SODIUM Inactive FUROSEMIDE 20 MG ORAL TABLET 1 pill by mouth daily if needed for edema FUROSEMIDE 20 MG ORAL TABLET 677242 FUROSEMIDE Inactive METFORMIN HCL 500 MG ORAL TABLET 1 bid METFORMIN HCL 500 MG ORAL TABLET 344177 METFORMIN HCL Inactive B-12 1000 MCG ORAL CAPSULE 1 tab daily B -12 1000 MCG ORAL CAPSULE CYANOCOBALAMIN Inactive VITAMIN E 200 UNIT ORAL CAPSULE 1 cap po qd 1 VITAMIN E 200 UNIT ORAL CAPSULE 0624440 VITAMIN E Inactive [facility] MELATONIN 5-10 MG [...] po daily AZITHROMYCIN 250 MG ORAL TABLET 363092 AZITHROMY BERNARDO Inactive SYMBICORT 160-4.5 MCG/ACT INHALATION AEROSOL 2 puffs BID 9 SYMBICORT 160-4.5 MCG/ACT INHALATION AEROSOL BUDESONIDE-FORM OTEROL FUMARATE Inactive ALBUTEROL SULFATE (2.5 MG/3ML) 0.083% INHALATION NEBUL IZATION SOLUTION one vial per nebulizer every 4-6 hours as needed ALBUTEROL SULFATE (2.5 MG/3ML) 0.083% INHALATION NEBULIZATION SOLUTION 708114 ALBUTER OL SULFATE Inactive NEBULIZER use as directed NEBULIZER NEBULI ZERS Inactive TESSALON PERLES 100 MG ORAL CAPSULE 1 tablet by mouth 3 times da juan pablo TESSALON PERLES 100 MG ORAL CAPSULE 200444 BENZONATATE Inactive CYCLOBENZAPRINE HCL 10 MG ORAL TABLET Take 1 tab TID PRN for mus triston pain CYCLOBENZAPRINE HCL 10 MG ORAL TABLET 472201 CYCLOBENZA ANUJA HCL Inactive AUGMENTIN 875-125 MG ORAL TABLET 1 po BID x 10 days 20 18/04/06 AUGMENTIN 875-125 MG ORAL TABLET 545158 AMOXICILLIN-POT CLAVULANATE Inactive BACTROBAN 2 % EXTERNAL CREAM Apply to affected area BID for up to 10 days BACTROBAN 2 % EXTERNAL CREAM 338461 MUPIROCIN CA LCIUM Inactive VITAMIN D3 98052 UNIT ORAL CAPSULE 1 pill Week x 4 mo nths for vitamin D deficiency/osteoporosis VITAMIN D3 16477 UNIT ORAL CAPSULE CHOLECALCIFEROL Inactive BENZONATATE 200 MG ORAL CAPSULE 1 three times a day as neede d for cough BENZONATATE 200 MG ORAL CAPSULE 642337 BENZONATA TE Inactive ZITHROMAX Z-MARTIN 250 MG ORAL TABLET 2 today and then 1 daily for 4 days ZITHROMAX Z-MARTIN 250 MG ORAL TABLET 023403 AZITHR OMYCIN Inactive ADDERALL 10 MG ORAL TABLET 1 tab twice daily 2 ADDERALL 10 MG ORAL TABLET 311988 AMPHETAMINE-DEXTROAMPHETAMINE Inactive AMOXICILLIN 500 MG ORAL CAPSULE 2 po BID x 10 days 201 07/15/00 AMOXICILLIN 500 MG ORAL CAPSULE 315633 AMOXICILLIN Inactive AZITHROMYCIN 250 MG ORAL TABLET take 2 po today then take 1 po days 2-5 AZITHROMYCIN 250 MG ORAL TABLET 025986 AZITHROMY BERNARDO Inactive LEVAQUIN 500 MG ORAL TABLET 1 pill by mouth daily 2013 LEVAQUIN 500 MG ORAL TABLET 500304 LEVOFLOXACIN Inactive AUGMENTIN 875-125 MG ORAL TABLET 1 pill by mouth twice daily 201 09/10/00 AUGMENTIN 875-125 MG ORAL TABLET 718774 AMOXICILLIN-POT CLAVULANATE Inactive AUGMENTIN 875-125 MG ORAL TABLET 1 po BID x 10 days 20 19/07/13 AUGMENTIN 875-125 MG ORAL TABLET 711132 AMOXICILLIN-POT CLAVULANATE Inactive PREDNISONE 20 MG ORAL TABLET take 3 tabs daily for 3 d ays, 2 tabs daily for 3 days, 1 tab daily for 3 days, 1/2 tab daily for 3 days 08/02 PREDNISONE 20 MG ORAL TABLET 864005 PREDNISONE Inactive CIPRO 500 MG ORAL TABLET 1 tablet by mouth twice daily CIPRO 500 MG ORAL TABLET 547428 CIPROFLOXACIN HCL Inactive Vital Signs Date Name [...] d Encounters Code Encounter Date Provider Facility CPT-48936 Level 3 Est. Patient 12:37:30 EDUCATIONAL PSYCHOLOGY PROFESSOR Galilea Se [facility] Lizy [facility] CPT-01344 Level 3 Est. Patient 11:40:23 CDT Bertrand marquez Lizy [facility] CPT-80648 Level 4 Est. Patient 15:33:35 EDUCATIONAL PSYCHOLOGY PROFESSOR Bertrand marquez Lizy [facility] CPT-41254 Level 4 Est. Patient 12:31:54 CDT Bertrand marquez Liz[facility] CPT-43423 Level 3 Est. Patient 11:27:00 EDUCATIONAL PSYCHOLOGY PROFESSOR Ike Deluna MD [facility] CPT-99709 Level 3 Est. Patient 08:50:57 EDUCATIONAL PSYCHOLOGY PROFESSOR Silvia gagnon [facility] Lizy [facility] CPT-87643 Level 3 Est. Patient 10:04:13 CDT Bertradn marquez griddig [facility] CPT-42676 Level 4 Est. Patient 16:02:10 EDUCATIONAL PSYCHOLOGY PROFESSOR Silvia Are kalin [facility] Lizy [facility] CPT-71579 Level 3 Est. Patient 13:04:54 EDUCATIONAL PSYCHOLOGY PROFESSOR Silvia Are [facility] Lizy [facility] CPT-09077 Level 3 Est. Patient 12:56:37 CDT Bertrand marquez [facility] CPT-95041 Level 3 Est. Patient 19:12:03 CDT Yoli tolbert MD [facility] CPT-80131 Level 3 Est. Patient 14:36:01 CDT Yoli tolbert MD [facility] CPT-83767 Level 2 Est. Patient 08:00:22 CDT Jcarlos dc MD [facility]-81528 Level 3 Est. Patient 19:06:55 CDT Bertrand marquez [facility] CPT-28101 Level 3 Est. Patient 10:08:23 EDUCATIONAL PSYCHOLOGY PROFESSOR Bertrand marquez [facility] CPT-14850 Level 3 Est. Patient 16:37:54 EDUCATIONAL PSYCHOLOGY PROFESSOR Bertrand marquez [facility] CPT-53689 Level 3 Est. Patient 11:31:59 EDUCATIONAL PSYCHOLOGY PROFESSOR Bertrand marquez [facility] CPT-79651 Level 3 Est. Patient 10:20:08 CDT Adolfo villasenor [facility] CPT-09700 Level 3 Est. Patient 13:45:20 CDT Sanket buckley [facility] CPT-65632 Level 3 Est. Patient 12:51:06 CDT Adolfo villasenor [facility] CPT-61472 Level 3 Est. Patient 11:22:51 EDUCATIONAL PSYCHOLOGY PROFESSOR Yoli tolbert MD [facility] CPT-55612 Level 3 Est. Patient 13:33:19 CDT Bertrand marquez [facility] Procedures Code Procedure Name Date Entry Date Standard Desc ription CPT-33452 Wound Culture - LAB USE ONLY 15:45:25 CDT 2 CPT-59794 Venipuncture Draw Fee 10:23:01 CDT CPT-J0696 Rocephin 1000 mg (Ceftriaxone) 16:20:30 EDUCATIONAL PSYCHOLOGY PROFESSOR CPT-99844 Abx/Therapy Injection 16:20:29 EDUCATIONAL PSYCHOLOGY PROFESSOR CPT-J0696 Rocephin 1gm Inj Solr 15:51:59 EDUCATIONAL PSYCHOLOGY PROFESSOR CPT-70265 Chest 2V Frontal and Lat 15:20:28 EDUCATIONAL PSYCHOLOGY PROFESSOR 07/22 CPT-39001 Breathing Tx 14:51:55 EDUCATIONAL PSYCHOLOGY PROFESSOR CPT-93614 Breathing Tx 09:57:16 EDUCATIONAL PSYCHOLOGY PROFESSOR CPT-93278 Knee comp 4/> V 11:58:06 EDUCATIONAL PSYCHOLOGY PROFESSOR
--- OUTSIDE RECORDS SUMMARY | 2019-11-13 09:57 | XMS REPORT | Clinical Summary ---
Author Author Admin, Enrique Adamson Organization [employer] Address Unknown Phone Unavailable Allergies, Adverse Reactions, [...] nspecified essential hypertension SCABIES 133.0 Resolved Yoli Meracdo MD PhD Scabies FH DIABETES V18.0 Inactive Yoli Mercado MD PhD Family history of diabetes mellitus SINUSITIS, FRONTAL, ACUTE 461.1 Resolved Yoli Mercado MD PhD Acute frontal sinusitis COUGH 786.2 Resolved Yoli Mercado MD PhD Cough EDEMA LEG 782.3 Resolved Ntiza Mullins Scribe Edema SHORTNESS OF BREATH 786.05 [...] Nitza Mullins Scribe Headache Cough 786.2 Resolved Nizta Mullins Scribe Cough SINUSITIS, ACUTE 461.9 Resolved [...] 09/09/28 EDEMA LEG ICD-782.3 Inactive Adele Feldman GROUP HOME MANAGER 201 01/01/02 SHORTNESS OF BREATH ICD-786.05 Inactive Yoli Mercado MD PhD RIB PAIN, RIGHT SIDED ICD-786.50 Inactive Yoli Mercado MD PhD KNEE PAIN, RIGHT ICD-719.46 Inactive Adele chiu GROUP HOME MANAGER Knee pain, left ICD-719.46 Inactive Adele damico GROUP HOME MANAGER Pharyngitis-Acute ICD-462 Inactive Bertrand Redmond DO Polyuria ICD-788.42 Inactive Yoli Mercado MD P hD Cellulitis, leg, right ICD-682.6 Inactive Yuki Deluna MD Foreign body, ear ICD-931 Inactive Yoli salazar MD PhD Fatigue ICD-780.79 Inactive Iek Deluna MD 201 12/01/06 Headache ICD-784.0 Inactive Adele Feldman GROUP HOME MANAGER 2017 Cough ICD-786.2 Inactive Adele Gaston ARTHUR 06/04 SINUSITIS, ACUTE ICD-461.9 Inactive Ike lange MD Fatigue ICD-780.79 Inactive Adele Feldman GROUP HOME MANAGER 2017 Animal bite ICD-919.8 Inactive Aedle Feldman [...] then 1 tab for 3 days PREDNISONE 40685017878 Active An abdelrahman Sell HEAVY COIL WINDER Active DOXYCYCLINE HYCLATE 100 MG ORAL CAPSULE 1 cap by mouth twice jong ly DOXYCYCLINE HYCLATE 68883185624 Active Galilea Sell HEAVY COIL WINDER Active LEVAQUIN 500 MG ORAL TABLET 1 tablet by mouth daily LEVOFLOXACIN 81808724242 Active Bertrand Patel DO Active ADDERALL 10 MG ORAL TABLET 1 tab twice daily 2 AMPHETAMINE-DEXTROAMPHETAMINE 04907469987 No Longer Active Nitza Phi llips Scribe Active ZITHROMAX Z-MARTIN 250 MG ORAL TABLET 2 today and then 1 daily for 4 days AZITHROMYCIN 95151731663 No Longer Active Nitza Osman lips Scribe Active BENZONATATE 200 MG ORAL CAPSULE 1 three times a day as neede d for cough BENZONATATE 93133686075 No Longer Active Nitza Osman lips Scribe Active VITAMIN D3 95047 UNIT ORAL CAPSULE 1 pill Week x 4 mo nths for vitamin D deficiency/osteoporosis CHOLECALCIFEROL 55093979336 N o Longer Active Layla Garcia Active BACTROBAN 2 % EXTERNAL CREAM Apply to affected area BID for up to 10 days MUPIROCIN CALCIUM 87473248910 No Longer Active Ike Deluna MD Active CIPRO 500 MG ORAL TABLET 1 tablet by mouth twice daily CIPROFLOXACIN HCL 25553500452 No Longer Active Adriana Bender LPN Active AUGMENTIN 875-125 MG ORAL TABLET 1 po BID x 10 days 18/04/06 AMOXICILLIN-POT CLAVULANATE 36315701910 No Longer Active Adriana Bender LPN Active MODAFINIL 200 MG ORAL TABLET Take 1/2 tab po in the am and 1 /2 tab po at noon MODAFINIL 75650861368 Active DOLLY Nguyen Active CYCLOBENZAPRINE HCL 10 MG ORAL TABLET Take 1 tab TID PRN for mus triston pain CYCLOBENZAPRINE HCL 11115712006 No Longer Active Bertrand Patel DO Active TESSALON PERLES 100 MG ORAL CAPSULE 1 tablet by mouth 3 times da juan pablo BENZONATATE 41743559037 No Longer Active Bertrand Patel DO Ac tive NEBULIZER use as directed NEBULIZERS 48123036072 No Longer Active Bertrand Patel DO Active ALBUTEROL SULFATE (2.5 MG/3ML) 0.083% INHALATION NEBUL IZATION SOLUTION one vial per nebulizer every 4-6 hours as needed ALBUTERO L SULFATE 30338811379 No Longer Active Bertrand Patel DO Active SYMBICORT 160-4.5 MCG/ACT INHALATION AEROSOL 2 puffs BID 9 BUDESONIDE-FORMOTEROL FUMARATE 75533999248 No Longer Active Bertrand Patel DO Active PREDNISONE 20 MG ORAL TABLET take 3 tabs daily for 3 d ays, 2 tabs daily for 3 days, 1 tab daily for 3 days, 1/2 tab daily for 3 days 08/02 PREDNISONE 05653597437 No Longer Active Silvia Vazquez HEAVY COIL WINDER Active AZITHROMYCIN 250 MG ORAL TABLET Take 2 tabs po today then 1 tab po daily AZITHROMYCIN 02598967310 No Longer Active Silvia Arell HEAVY COIL WINDER Active AUGMENTIN 875-125 MG ORAL TABLET 1 po BID x 10 days 20 19/07/13 AMOXICILLIN-POT CLAVULANATE 99291877571 No Longer Active Adriana Bender LPN Active CHEWABLE CALCIUM 500-200-40 MG-UNT-MCG ORAL TABLET CHEWABLE 1 chew tab bid CALCIUM-VITAMIN D-VITAMIN K 28875592157 Active Silvia Are ll HEAVY COIL WINDER Active EQ COMPLETE MULTIVIT ADULT 50+ ORAL TABLET 1 tab po bid MULTIPLE VITAMINS-MINERALS 47769021576 Active Silvia Arell HEAVY COIL WINDER Active HYDROCODONE-ACETAMINOPHEN 7.5-325 MG ORAL TABLET TAKE ONE TAB EVERY 6 HOURS BY MOUTH NEEDED FOR PAIN HYDROCODONE-ACETAMINOPHEN 004 17539638 Active Layla Garcia Active LORTAB 7.5-500 MG ORAL TABLET take one po Q6 hours 201 09/12/01 HYDROCODONE-ACETAMINOPHEN 33454188400 No Longer Active Nirmal Robbins RN Active [facility] MELATONIN 5-10 MG ORAL TABLET EXTENDED RELEASE Jair e one by mouth daily at bedtime MELATONIN-PYRIDOXINE 23150459562 No Longer Acti ve Bertrand Patel DO Active VITAMIN E 200 UNIT ORAL CAPSULE 1 cap po qd VITAM IN E 56208725591 No Longer Active Bertrand Patel DO Active B-12 1000 MCG ORAL CAPSULE 1 tab daily CYANOCOB ALAMIN 68373430200 No Longer Active Bertrand Patel DO Active METFORMIN HCL 500 MG ORAL TABLET 1 bid METFOR MIN HCL 38558394179 No Longer Active Bertrand Patel DO Active FUROSEMIDE 20 MG ORAL TABLET 1 pill by mouth daily if needed for edema FUROSEMIDE 40162484269 No Longer Active Bertrand Patel DO Active PRAVASTATIN SODIUM 20 MG ORAL TABLET 1 tablet by mouth daily at bedtime PRAVASTATIN SODIUM 53268128224 No Longer Active Bertrand Patel DO Active AUGMENTIN 875-125 MG ORAL TABLET 1 pill by mouth twice daily 201 09/10/00 AMOXICILLIN-POT CLAVULANATE 29534519736 No Longer Active Yoli Mercado MD PhD Active LEVAQUIN 500 MG ORAL TABLET 1 pill by mouth daily 2013 LEVOFLOXACIN 60930938957 No Longer Active Yoli Mercado MD PhD Acti ve AMLODIPINE BESYLATE 5 MG ORAL TABLET 1 tablet by mouth daily for blood pressure AMLODIPINE BESYLATE 50577318665 Active Bertrand Patel DO Active MICARDIS 80 MG ORAL TABLET 1 tablet daily for blood pressure 07/30 TELMISARTAN 69175818645 Active Bertrand Patel DO Active MICARDIS HCT 80-12.5 MG ORAL TABLET 1 qd TELMISARTAN-HCTZ 97199744833 No Longer Active Bertrand Patel DO Active CINNAMON ALPHA LIPOIC AC CMPLX CAPSULE by mouth twice a day in AM by mouth twice a day in PM ALPHA LIPOIC TRHL-KP-IORCZIEC CA PS 22729812940 No Longer Active Bertrand Patel DO Active AZITHROMYCIN 500 MG INTRAVENOUS SOLUTION RECONSTITUTED 1 po q da y AZITHROMYCIN 44018251742 No Longer Active Bertrand Patel DO A ctive CYMBALTA 30 MG ORAL CAPSULE DELAYED RELEASE PARTICLES 1 cap by mouth daily DULOXETINE HCL 34262114177 No Longer Active Bertrand marquez DO Active CYMBALTA 60 MG ORAL CAPSULE DELAYED RELEASE PARTICLES 1 cap by mouth daily DULOXETINE HCL 70516358023 Active Bertrand Patel DO Active WELLBUTRIN 75 MG ORAL TABLET 2 times daily BUPR OPION HCL 93737470898 No Longer Active Bertrand Patel DO Active PROAIR HFA 108 (90 Base) MCG/ACT INHALATION AEROSOL SO LUTION take one to two puffs po Q4-6 hour prn cough and shortness of breath ALBUTEROL SULFATE 22151773489 Active Silvia Vazquez HEAVY COIL WINDER Active AZITHROMYCIN 250 MG ORAL TABLET take 2 po today then take 1 po days 2-5 AZITHROMYCIN 04929921545 No Longer Active Adolfo OSORIO Active PERMETHRIN 5 % EXTERNAL CREAM apply neck to toes tonig ht and then rinse off in morning. repeat at 7 days PERMETHRIN 61750803529 No Longer Active Adolfo OSORIO Active AMOXICILLIN 500 MG ORAL CAPSULE 2 po BID x 10 days 201 07/15/00 AMOXICILLIN 23192313304 No Longer Active Yoli Mercado MD PhD Acti ve ALPRAZOLAM 0.5 MG ORAL TABLET 1 tab by mouth tid ALPRAZOLAM 35582460045 Active Bertrand Patel DO Active INSUPEN ULTRAFIN 31G X 6 MM USE DIRECTED INSULIN PEN NEEDLE 11580286174 No Longer Active Bertrand Patel DO Active TRANSDERM-SCOP (1.5 MG) 1 MG/3DAYS TRANSDERMAL PATCH 7 2 HOUR 1 patch applied behind ear q 3 day SCOPOLAMINE BASE 50510242452 No Lo nger Active Bertrand Patel DO Active MACRODANTIN 100 MG ORAL CAPSULE one p.o. b.i.d. x2 weeks NITROFURANTOIN MACROCRYSTAL 63819183817 No Longer Active Bertrand Patel DO Active MACRODANTIN 100 MG ORAL CAPSULE one p.o. b.i.d. x2 weeks MACRODANTIN 100 MG ORAL CAPSULE 1660433 NITROFURANTOIN MACROCRYSTAL Inactive TRANSDERM-SCOP (1.5 MG) 1 [...] days PERMETHRIN 5 % EXTER NAL CREAM 982226 PERMETHRIN Inactive WELLBUTRIN 75 MG ORAL TABLET 2 times daily WELLBUTRIN 75 MG ORAL TABLET BUPROPION HCL Inactive CYMBALTA 30 MG ORAL CAPSULE DELAYED RELEASE PARTICLES 1 cap by mouth daily CYMBALTA 30 MG ORAL CAPSULE DELAYED RELE ASE PARTICLES 602466 DULOXETINE HCL Inactive AZITHROMYCIN 500 MG INTRAVENOUS SOLUTION RECONSTITUTED 1 po q da y AZITHROMYCIN 500 MG INTRAVENOUS SOLUTION RECONSTITUTED 15977 616641 AZITHROMYCIN Inactive CINNAMON ALPHA LIPOIC AC CMPLX CAPSULE by mouth twice a day in AM by mouth twice a day in PM CINNAMON ALPHA LIPOIC AC CMPLX CAPSULE ALPHA LIPOIC [id number] CAPS Inactive MICARDIS HCT 80-12.5 MG ORAL TABLET 1 qd 07/30 MICARDIS HCT 80-12.5 MG ORAL TABLET 899144 TELMISARTAN-HCTZ Inactive PRAVASTATIN SODIUM 20 MG ORAL TABLET 1 tablet by mouth daily at bedtime PRAVASTATIN SODIUM 20 MG ORAL TABLET 547094 PRAVASTATIN SODIUM Inactive FUROSEMIDE 20 MG ORAL TABLET 1 pill by mouth daily if needed for edema FUROSEMIDE 20 MG ORAL TABLET 530148 FUROSEMIDE Inactive METFORMIN HCL 500 MG ORAL TABLET 1 bid METFORMIN HCL 500 MG ORAL TABLET 565785 METFORMIN HCL Inactive B-12 1000 MCG ORAL CAPSULE 1 tab daily B -12 1000 MCG ORAL CAPSULE CYANOCOBALAMIN Inactive VITAMIN E 200 UNIT ORAL CAPSULE 1 cap po qd 1 VITAMIN E 200 UNIT ORAL CAPSULE 3933359 VITAMIN E Inactive [facility] MELATONIN 5-10 MG [...] po daily AZITHROMYCIN 250 MG ORAL TABLET 237503 AZITHROMY BERNARDO Inactive SYMBICORT 160-4.5 MCG/ACT INHALATION AEROSOL 2 puffs BID 9 SYMBICORT 160-4.5 MCG/ACT INHALATION AEROSOL BUDESONIDE-FORM OTEROL FUMARATE Inactive ALBUTEROL SULFATE (2.5 MG/3ML) 0.083% INHALATION NEBUL IZATION SOLUTION one vial per nebulizer every 4-6 hours as needed ALBUTEROL SULFATE (2.5 MG/3ML) 0.083% INHALATION NEBULIZATION SOLUTION 861523 ALBUTER OL SULFATE Inactive NEBULIZER use as directed NEBULIZER NEBULI ZERS Inactive TESSALON PERLES 100 MG ORAL CAPSULE 1 tablet by mouth 3 times da juan pablo TESSALON PERLES 100 MG ORAL CAPSULE 150979 BENZONATATE Inactive CYCLOBENZAPRINE HCL 10 MG ORAL TABLET Take 1 tab TID PRN for mus triston pain CYCLOBENZAPRINE HCL 10 MG ORAL TABLET 286717 CYCLOBENZA ANUJA HCL Inactive AUGMENTIN 875-125 MG ORAL TABLET 1 po BID x 10 days 20 18/04/06 AUGMENTIN 875-125 MG ORAL TABLET 802544 AMOXICILLIN-POT CLAVULANATE Inactive BACTROBAN 2 % EXTERNAL CREAM Apply to affected area BID for up to 10 days BACTROBAN 2 % EXTERNAL CREAM 805482 MUPIROCIN CA LCIUM Inactive VITAMIN D3 37235 UNIT ORAL CAPSULE 1 pill Week x 4 mo nths for vitamin D deficiency/osteoporosis VITAMIN D3 68651 UNIT ORAL CAPSULE CHOLECALCIFEROL Inactive BENZONATATE 200 MG ORAL CAPSULE 1 three times a day as neede d for cough BENZONATATE 200 MG ORAL CAPSULE 827305 BENZONATA TE Inactive ZITHROMAX Z-MARTIN 250 MG ORAL TABLET 2 today and then 1 daily for 4 days ZITHROMAX Z-MARTIN 250 MG ORAL TABLET 565938 AZITHR OMYCIN Inactive ADDERALL 10 MG ORAL TABLET 1 tab twice daily 2 ADDERALL 10 MG ORAL TABLET 755836 AMPHETAMINE-DEXTROAMPHETAMINE Inactive AMOXICILLIN 500 MG ORAL CAPSULE 2 po BID x 10 days 201 07/15/00 AMOXICILLIN 500 MG ORAL CAPSULE 861702 AMOXICILLIN Inactive AZITHROMYCIN 250 MG ORAL TABLET take 2 po today then take 1 po days 2-5 AZITHROMYCIN 250 MG ORAL TABLET 621106 AZITHROMY BERNARDO Inactive LEVAQUIN 500 MG ORAL TABLET 1 pill by mouth daily 2013 LEVAQUIN 500 MG ORAL TABLET 214688 LEVOFLOXACIN Inactive AUGMENTIN 875-125 MG ORAL TABLET 1 pill by mouth twice daily 201 09/10/00 AUGMENTIN 875-125 MG ORAL TABLET 229408 AMOXICILLIN-POT CLAVULANATE Inactive AUGMENTIN 875-125 MG ORAL TABLET 1 po BID x 10 days 20 19/07/13 AUGMENTIN 875-125 MG ORAL TABLET 142785 AMOXICILLIN-POT CLAVULANATE Inactive PREDNISONE 20 MG ORAL TABLET take 3 tabs daily for 3 d ays, 2 tabs daily for 3 days, 1 tab daily for 3 days, 1/2 tab daily for 3 days 08/02 PREDNISONE 20 MG ORAL TABLET 955793 PREDNISONE Inactive CIPRO 500 MG ORAL TABLET 1 tablet by mouth twice daily CIPRO 500 MG ORAL TABLET 970675 CIPROFLOXACIN HCL Inactive Vital Signs Date Name [...] d Encounters Code Encounter Date Provider Facility CPT-12802 Level 3 Est. Patient 12:37:30 PYROTECHNICIAN Galilea Se [facility] Lizy [facility] CPT-09021 Level 3 Est. Patient 11:40:23 [facility] Level 4 Est. Patient 15:33:35 PYROTECHNICIAN Bertrand marquez Liz[facility] CPT-24903 Level 4 Est. Patient 12:31:54 CDT Bertrand marquez Lizy [facility] CPT-55188 Level 3 Est. Patient 11:27:00 PYROTECHNICIAN Ike Deluna MD [facility]-86808 Level 3 Est. Patient 08:50:57 PYROTECHNICIAN Silvia Malone [facility] Lizy [facility] CPT-53586 Level 3 Est. Patient 10:04:13 CDT Bertrand marquez Lizy [facility] CPT-15365 Level 4 Est. Patient 16:02:10 PYROTECHNICIAN Silvia Malone [facility] Lizy [facility] CPT-61496 Level 3 Est. Patient 13:04:54 PYROTECHNICIAN Silvia Malone [facility] Lizy [facility] CPT-89818 Level 3 Est. Patient 12:56:37 CDT Bertrand marquez [facility] CPT-25296 Level 3 Est. Patient 19:12:03 CDT Yoli tolbert MD [facility] CPT-09747 Level 3 Est. Patient 14:36:01 CDT Yoli tolbert MD [facility] CPT-48268 Level 2 Est. Patient 08:00:22 CDT Jcarlos dc MD [facility]-58928 Level 3 Est. Patient 19:06:55 CDT Bertrand marquez [facility] CPT-83445 Level 3 Est. Patient 10:08:23 PYROTECHNICIAN Bertrand marquez [facility] CPT-37033 Level 3 Est. Patient 16:37:54 PYROTECHNICIAN Bertrand marquez [facility] CPT-56781 Level 3 Est. Patient 11:31:59 PYROTECHNICIAN Bertrand marquez [facility] CPT-09687 Level 3 Est. Patient 10:20:08 CDT Adolfo villasenor [facility] CPT-67492 Level 3 Est. Patient 13:45:20 CDT Sanket buckley [facility] CPT-98391 Level 3 Est. Patient 12:51:06 CDT Adolfo villasenor [facility] CPT-49624 Level 3 Est. Patient 11:22:51 PYROTECHNICIAN Yoli tolbert MD [facility] CPT-45213 Level 3 Est. Patient 13:33:19 CDT Bertrand marquez [facility] Procedures Code Procedure Name Date Entry Date Standard Desc ription CPT-21465 Wound Culture - LAB USE ONLY 15:45:25 CDT 2 CPT-80161 Venipuncture Draw Fee 10:23:01 CDT CPT-J0696 Rocephin 1000 mg (Ceftriaxone) 16:20:30 PYROTECHNICIAN CPT-01205 Abx/Therapy Injection 16:20:29 PYROTECHNICIAN CPT-J0696 Rocephin 1gm Inj Solr 15:51:59 PYROTECHNICIAN CPT-27717 Chest 2V Frontal and Lat 15:20:28 PYROTECHNICIAN 07/22 CPT-29133 Breathing Tx 14:51:55 PYROTECHNICIAN CPT-90458 Breathing Tx 09:57:16 PYROTECHNICIAN CPT-33501 Knee comp 4/> V 11:58:06 PYROTECHNICIAN
--- OUTSIDE RECORDS SUMMARY | 2019-11-13 09:57 | XMS REPORT | Clinical Summary ---
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 01/01/02 SHORTNESS OF BREATH ICD-786.05 Inactive Yoli Mercado MD PhD RIB PAIN, RIGHT SIDED ICD-786.50 Inactive Yoli Mercado MD PhD KNEE PAIN, RIGHT ICD-719.46 Inactive Adele chiu SUPERVISOR [employer] Knee pain, left ICD-719.46 Inactive Adele damico SUPERVISOR [employer] Pharyngitis-Acute ICD-462 Inactive Bertrand Redmond DO Polyuria ICD-788.42 Inactive Yoli Mercado MD P hD Cellulitis, leg, right ICD-682.6 Inactive Yuki Deluna MD Foreign body, ear ICD-931 Inactive Yoli salazar MD PhD Fatigue ICD-780.79 Inactive Ike Deluna MD 201 12/01/06 Headache ICD-784.0 Inactive 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 [employer] 2017 Cough ICD-786.2 Inactive Adele Gaston ARTHUR 06/04 SINUSITIS, ACUTE ICD-461.9 Inactive Ike lange MD Fatigue ICD-780.79 Inactive Adele Feldman SUPERVISOR [employer] 2017 Animal bite ICD-919.8 Inactive Adele Feldman [...] then 1 tab for 3 days PREDNISONE 21548564213 Active An abdelrahman Sell SENIOR INTERNAL AUDITOR Active DOXYCYCLINE HYCLATE 100 MG ORAL CAPSULE 1 cap by mouth twice jong ly DOXYCYCLINE HYCLATE 99210398566 Active Galilea Sell SENIOR INTERNAL AUDITOR Active LEVAQUIN 500 MG ORAL TABLET 1 tablet by mouth daily LEVOFLOXACIN 74560679514 Active Bertrand Patel DO Active ADDERALL 10 MG ORAL TABLET 1 tab twice daily 2 AMPHETAMINE-DEXTROAMPHETAMINE 58408581872 No Longer Active Nitza Phi llips Scribe Active ZITHROMAX Z-MARTIN 250 MG ORAL TABLET 2 today and then 1 daily for 4 days AZITHROMYCIN 42876220847 No Longer Active Nitza Osman lips Scribe Active BENZONATATE 200 MG ORAL CAPSULE 1 three times a day as neede d for cough BENZONATATE 38563187265 No Longer Active Nitza Osman lips Scribe Active VITAMIN D3 05350 UNIT ORAL CAPSULE 1 pill Week x 4 mo nths for vitamin D deficiency/osteoporosis CHOLECALCIFEROL 55294271222 N o Longer Active Layla Garcia Active BACTROBAN 2 % EXTERNAL CREAM Apply to affected area BID for up to 10 days MUPIROCIN CALCIUM 97319179508 No Longer Active Ike Deluna MD Active CIPRO 500 MG ORAL TABLET 1 tablet by mouth twice daily CIPROFLOXACIN HCL 44643618081 No Longer Active Adriana Bender LPN Active AUGMENTIN 875-125 MG ORAL TABLET 1 po BID x 10 days 18/04/06 AMOXICILLIN-POT CLAVULANATE 60500354335 No Longer Active Adriana Bender LPN Active MODAFINIL 200 MG ORAL TABLET Take 1/2 tab po in the am and 1 /2 tab po at noon MODAFINIL 53794997591 Active DOLLY Nguyen Active CYCLOBENZAPRINE HCL 10 MG ORAL TABLET Take 1 tab TID PRN for mus triston pain CYCLOBENZAPRINE HCL 22713162691 No Longer Active Bertrand Patel DO Active TESSALON PERLES 100 MG ORAL CAPSULE 1 tablet by mouth 3 times da juan pablo BENZONATATE 43886178787 No Longer Active Bertrand Patel DO Ac tive NEBULIZER use as directed NEBULIZERS 00209171555 No Longer Active Bertrand Patel DO Active ALBUTEROL SULFATE (2.5 MG/3ML) 0.083% INHALATION NEBUL IZATION SOLUTION one vial per nebulizer every 4-6 hours as needed ALBUTERO L SULFATE 93384514180 No Longer Active Bertrand Patel DO Active SYMBICORT 160-4.5 MCG/ACT INHALATION AEROSOL 2 puffs BID 9 BUDESONIDE-FORMOTEROL FUMARATE 89947013350 No Longer Active Bertrand Patel DO Active PREDNISONE 20 MG ORAL TABLET take 3 tabs daily for 3 d ays, 2 tabs daily for 3 days, 1 tab daily for 3 days, 1/2 tab daily for 3 days 08/02 PREDNISONE 67965102241 No Longer Active Silvia Vazquez SENIOR INTERNAL AUDITOR Active AZITHROMYCIN 250 MG ORAL TABLET Take 2 tabs po today then 1 tab po daily AZITHROMYCIN 78224177152 No Longer Active Silvia Arell SENIOR INTERNAL AUDITOR Active AUGMENTIN 875-125 MG ORAL TABLET 1 po BID x 10 days 20 19/07/13 AMOXICILLIN-POT CLAVULANATE 22973994970 No Longer Active Adriana Bender LPN Active CHEWABLE CALCIUM 500-200-40 MG-UNT-MCG ORAL TABLET CHEWABLE 1 chew tab bid CALCIUM-VITAMIN D-VITAMIN K 85453903636 Active Silvia Are ll SENIOR INTERNAL AUDITOR Active EQ COMPLETE MULTIVIT ADULT 50+ ORAL TABLET 1 tab po bid MULTIPLE VITAMINS-MINERALS 61140406126 Active Silvia Arell SENIOR INTERNAL AUDITOR Active HYDROCODONE-ACETAMINOPHEN 7.5-325 MG ORAL TABLET TAKE ONE TAB EVERY 6 HOURS BY MOUTH NEEDED FOR PAIN HYDROCODONE-ACETAMINOPHEN 004 69497607 Active Layla Garcia Active LORTAB 7.5-500 MG ORAL TABLET take one po Q6 hours 201 09/12/01 HYDROCODONE-ACETAMINOPHEN 09217381814 No Longer Active Nirmal Robbins RN Active [facility] MELATONIN 5-10 MG ORAL TABLET EXTENDED RELEASE Jair e one by mouth daily at bedtime MELATONIN-PYRIDOXINE 52959920876 No Longer Acti ve Bertrand Patel DO Active VITAMIN E 200 UNIT ORAL CAPSULE 1 cap po qd VITAM IN E 78298356563 No Longer Active Bertrand Patel DO Active B-12 1000 MCG ORAL CAPSULE 1 tab daily CYANOCOB ALAMIN 81111058852 No Longer Active Bertrand Patel DO Active METFORMIN HCL 500 MG ORAL TABLET 1 bid METFOR MIN HCL 06917778086 No Longer Active Bertrand Patel DO Active FUROSEMIDE 20 MG ORAL TABLET 1 pill by mouth daily if needed for edema FUROSEMIDE 57249219471 No Longer Active Bertrand Patel DO Active PRAVASTATIN SODIUM 20 MG ORAL TABLET 1 tablet by mouth daily at bedtime PRAVASTATIN SODIUM 86230539239 No Longer Active Bertrand Patel DO Active AUGMENTIN 875-125 MG ORAL TABLET 1 pill by mouth twice daily 201 09/10/00 AMOXICILLIN-POT CLAVULANATE 86428581381 No Longer Active Yoli Mercado MD PhD Active LEVAQUIN 500 MG ORAL TABLET 1 pill by mouth daily 2013 LEVOFLOXACIN 04147947197 No Longer Active Yoli Mercado MD PhD Acti ve AMLODIPINE BESYLATE 5 MG ORAL TABLET 1 tablet by mouth daily for blood pressure AMLODIPINE BESYLATE 17088267847 Active Bertrand Patel DO Active MICARDIS 80 MG ORAL TABLET 1 tablet daily for blood pressure 07/30 TELMISARTAN 65645064439 Active Bertrand Patel DO Active MICARDIS HCT 80-12.5 MG ORAL TABLET 1 qd TELMISARTAN-HCTZ 49889314926 No Longer Active Bertrand Patel DO Active CINNAMON ALPHA LIPOIC AC CMPLX CAPSULE by mouth twice a day in AM by mouth twice a day in PM ALPHA LIPOIC [id number] CA PS 74060216970 No Longer Active Bertrand Patel DO Active AZITHROMYCIN 500 MG INTRAVENOUS SOLUTION RECONSTITUTED 1 po q da y AZITHROMYCIN 69243884127 No Longer Active Bertrand Patel DO A ctive CYMBALTA 30 MG ORAL CAPSULE DELAYED RELEASE PARTICLES 1 cap by mouth daily DULOXETINE HCL 43404328113 No Longer Active Bertrand marquez DO Active CYMBALTA 60 MG ORAL CAPSULE DELAYED RELEASE PARTICLES 1 cap by mouth daily DULOXETINE HCL 01754178573 Active Bertrand Patel DO Active WELLBUTRIN 75 MG ORAL TABLET 2 times daily BUPR OPION HCL 88872253668 No Longer Active Bertrand Patel DO Active PROAIR HFA 108 (90 Base) MCG/ACT INHALATION AEROSOL SO LUTION take one to two puffs po Q4-6 hour prn cough and shortness of breath ALBUTEROL SULFATE 01544289073 Active Silvia Vazquez SENIOR INTERNAL AUDITOR Active AZITHROMYCIN 250 MG ORAL TABLET take 2 po today then take 1 po days 2-5 AZITHROMYCIN 29619154877 No Longer Active Adolfo OSORIO Active PERMETHRIN 5 % EXTERNAL CREAM apply neck to toes tonig ht and then rinse off in morning. repeat at 7 days PERMETHRIN 41234539028 No Longer Active Adolfo OSORIO Active AMOXICILLIN 500 MG ORAL CAPSULE 2 po BID x 10 days 201 07/15/00 AMOXICILLIN 66914837601 No Longer Active Yoli Mercado MD PhD Acti ve ALPRAZOLAM 0.5 MG ORAL TABLET 1 tab by mouth tid ALPRAZOLAM 91730497069 Active Bertrand Patel DO Active INSUPEN ULTRAFIN 31G X 6 MM USE DIRECTED INSULIN PEN NEEDLE 69886432904 No Longer Active Bertrand Patel DO Active TRANSDERM-SCOP (1.5 MG) 1 MG/3DAYS TRANSDERMAL PATCH 7 2 HOUR 1 patch applied behind ear q 3 day SCOPOLAMINE BASE 31229075155 No Lo nger Active Bertrand Patel DO Active MACRODANTIN 100 MG ORAL CAPSULE one p.o. b.i.d. x2 weeks NITROFURANTOIN MACROCRYSTAL 81122158208 No Longer Active Bertrand Patel DO Active MACRODANTIN 100 MG ORAL CAPSULE one p.o. b.i.d. x2 weeks MACRODANTIN 100 MG ORAL CAPSULE 8025791 NITROFURANTOIN MACROCRYSTAL Inactive TRANSDERM-SCOP (1.5 MG) 1 [...] days PERMETHRIN 5 % EXTER NAL CREAM 559482 PERMETHRIN Inactive WELLBUTRIN 75 MG ORAL TABLET 2 times daily WELLBUTRIN 75 MG ORAL TABLET BUPROPION HCL Inactive CYMBALTA 30 MG ORAL CAPSULE DELAYED RELEASE PARTICLES 1 cap by mouth daily CYMBALTA 30 MG ORAL CAPSULE DELAYED RELE ASE PARTICLES 860481 DULOXETINE HCL Inactive AZITHROMYCIN 500 MG INTRAVENOUS SOLUTION RECONSTITUTED 1 po q da y AZITHROMYCIN 500 MG INTRAVENOUS SOLUTION RECONSTITUTED 45291 541490 AZITHROMYCIN Inactive CINNAMON ALPHA LIPOIC AC CMPLX CAPSULE by mouth twice a day in AM by mouth twice a day in PM CINNAMON ALPHA LIPOIC AC CMPLX CAPSULE ALPHA LIPOIC [id number] CAPS Inactive MICARDIS HCT 80-12.5 MG ORAL TABLET 1 qd 07/30 MICARDIS HCT 80-12.5 MG ORAL TABLET 757898 TELMISARTAN-HCTZ Inactive PRAVASTATIN SODIUM 20 MG ORAL TABLET 1 tablet by mouth daily at bedtime PRAVASTATIN SODIUM 20 MG ORAL TABLET 640950 PRAVASTATIN SODIUM Inactive FUROSEMIDE 20 MG ORAL TABLET 1 pill by mouth daily if needed for edema FUROSEMIDE 20 MG ORAL TABLET 743853 FUROSEMIDE Inactive METFORMIN HCL 500 MG ORAL TABLET 1 bid METFORMIN HCL 500 MG ORAL TABLET 589713 METFORMIN HCL Inactive B-12 1000 MCG ORAL CAPSULE 1 tab daily B -12 1000 MCG ORAL CAPSULE CYANOCOBALAMIN Inactive VITAMIN E 200 UNIT ORAL CAPSULE 1 cap po qd 1 VITAMIN E 200 UNIT ORAL CAPSULE 3922583 VITAMIN E Inactive [facility] MELATONIN 5-10 MG [...] po daily AZITHROMYCIN 250 MG ORAL TABLET 820555 AZITHROMY BERNARDO Inactive SYMBICORT 160-4.5 MCG/ACT INHALATION AEROSOL 2 puffs BID 9 SYMBICORT 160-4.5 MCG/ACT INHALATION AEROSOL BUDESONIDE-FORM OTEROL FUMARATE Inactive ALBUTEROL SULFATE (2.5 MG/3ML) 0.083% INHALATION NEBUL IZATION SOLUTION one vial per nebulizer every 4-6 hours as needed ALBUTEROL SULFATE (2.5 MG/3ML) 0.083% INHALATION NEBULIZATION SOLUTION 228803 ALBUTER OL SULFATE Inactive NEBULIZER use as directed NEBULIZER NEBULI ZERS Inactive TESSALON PERLES 100 MG ORAL CAPSULE 1 tablet by mouth 3 times da juan pablo TESSALON PERLES 100 MG ORAL CAPSULE 102578 BENZONATATE Inactive CYCLOBENZAPRINE HCL 10 MG ORAL TABLET Take 1 tab TID PRN for mus triston pain CYCLOBENZAPRINE HCL 10 MG ORAL TABLET 025233 CYCLOBENZA ANUJA HCL Inactive AUGMENTIN 875-125 MG ORAL TABLET 1 po BID x 10 days 20 18/04/06 AUGMENTIN 875-125 MG ORAL TABLET 717615 AMOXICILLIN-POT CLAVULANATE Inactive BACTROBAN 2 % EXTERNAL CREAM Apply to affected area BID for up to 10 days BACTROBAN 2 % EXTERNAL CREAM 434273 MUPIROCIN CA LCIUM Inactive VITAMIN D3 60571 UNIT ORAL CAPSULE 1 pill Week x 4 mo nths for vitamin D deficiency/osteoporosis VITAMIN D3 64665 UNIT ORAL CAPSULE CHOLECALCIFEROL Inactive BENZONATATE 200 MG ORAL CAPSULE 1 three times a day as neede d for cough BENZONATATE 200 MG ORAL CAPSULE 014961 BENZONATA TE Inactive ZITHROMAX Z-MARTIN 250 MG ORAL TABLET 2 today and then 1 daily for 4 days ZITHROMAX Z-MARTIN 250 MG ORAL TABLET 188167 AZITHR OMYCIN Inactive ADDERALL 10 MG ORAL TABLET 1 tab twice daily 2 ADDERALL 10 MG ORAL TABLET 558852 AMPHETAMINE-DEXTROAMPHETAMINE Inactive AMOXICILLIN 500 MG ORAL CAPSULE 2 po BID x 10 days 201 07/15/00 AMOXICILLIN 500 MG ORAL CAPSULE 646792 AMOXICILLIN Inactive AZITHROMYCIN 250 MG ORAL TABLET take 2 po today then take 1 po days 2-5 AZITHROMYCIN 250 MG ORAL TABLET 449046 AZITHROMY BERNARDO Inactive LEVAQUIN 500 MG ORAL TABLET 1 pill by mouth daily 2013 LEVAQUIN 500 MG ORAL TABLET 050371 LEVOFLOXACIN Inactive AUGMENTIN 875-125 MG ORAL TABLET 1 pill by mouth twice daily 201 09/10/00 AUGMENTIN 875-125 MG ORAL TABLET 192596 AMOXICILLIN-POT CLAVULANATE Inactive AUGMENTIN 875-125 MG ORAL TABLET 1 po BID x 10 days 20 19/07/13 AUGMENTIN 875-125 MG ORAL TABLET 527267 AMOXICILLIN-POT CLAVULANATE Inactive PREDNISONE 20 MG ORAL TABLET take 3 tabs daily for 3 d ays, 2 tabs daily for 3 days, 1 tab daily for 3 days, 1/2 tab daily for 3 days 08/02 PREDNISONE 20 MG ORAL TABLET 422399 PREDNISONE Inactive CIPRO 500 MG ORAL TABLET 1 tablet by mouth twice daily CIPRO 500 MG ORAL TABLET 588356 CIPROFLOXACIN HCL Inactive Vital Signs Date Name [...] d Encounters Code Encounter Date Provider Facility CPT-16915 Level 3 Est. Patient 12:37:30 HELP DESK SPECIALIST Galilea Se [facility] CPT-14435 Level 3 Est. Patient 11:40:23 CDT [facility] Level 4 Est. Patient 15:33:35 HELP DESK SPECIALIST Bertrand marquez [facility] CPT-84149 Level 4 Est. Patient 12:31:54 CDT Bertrand marquez [facility] CPT-76848 Level 3 Est. Patient 11:27:00 HELP DESK SPECIALIST Ike Deluna MD [facility]-85616 Level 3 Est. Patient 08:50:57 HELP DESK SPECIALIST Silvia Malone [facility] CPT-60142 Level 3 Est. Patient 10:04:13 CDT Bertrand marquez [facility] CPT-06973 Level 4 Est. Patient 16:02:10 HELP DESK SPECIALIST Silvia Malone [facility] CPT-89058 Level 3 Est. Patient 13:04:54 HELP DESK SPECIALIST Silvia Malone [facility] CPT-40657 Level 3 Est. Patient 12:56:[address] [facility] CPT-11811 Level 3 Est. Patient 19:12:03 CDT Yoli tolbert MD [facility] CPT-55605 Level 3 Est. Patient 14:36:01 CDT Yoli tolbert MD [facility] CPT-83486 Level 2 Est. Patient 08:00:22 CDT Jcarlos dc MD [facility]-25354 Level 3 Est. Patient 19:06:[address] [facility] CPT-66550 Level 3 Est. Patient 10:08:23 HELP DESK SPECIALIST Bertrand marquez [facility] CPT-17725 Level 3 Est. Patient 16:37:54 HELP DESK SPECIALIST Bertrand marquez [facility] CPT-60369 Level 3 Est. Patient 11:31:59 HELP DESK SPECIALIST Bertrand marquez [facility] CPT-34843 Level 3 Est. Patient 10:20:08 CDT Adolfo villasenor [facility] CPT-20683 Level 3 Est. Patient 13:45:20 CDT Sanket buckley [facility] CPT-08190 Level 3 Est. Patient 12:51:06 CDT Adolfo villasenor [facility] CPT-93518 Level 3 Est. Patient 11:22:51 HELP DESK SPECIALIST Yoli tolbert MD [facility] CPT-75245 Level 3 Est. Patient 13:33:[address] [facility] Procedures Code Procedure Name Date Entry Date Standard Desc ription CPT-99832 Wound Culture - LAB USE ONLY 15:45:25 CDT 2 CPT-47471 Venipuncture Draw Fee 10:23:01 CDT CPT-J0696 Rocephin 1000 mg (Ceftriaxone) 16:20:30 HELP DESK SPECIALIST CPT-29048 Abx/Therapy Injection 16:20:29 HELP DESK SPECIALIST CPT-J0696 Rocephin 1gm Inj Solr 15:51:59 HELP DESK SPECIALIST CPT-69221 Chest 2V Frontal and Lat 15:20:28 HELP DESK SPECIALIST 07/22 CPT-71632 Breathing Tx 14:51:55 HELP DESK SPECIALIST CPT-74914 Breathing Tx 09:57:16 HELP DESK SPECIALIST CPT-15704 Knee comp 4/> V 11:58:06 HELP DESK SPECIALIST
--- OUTSIDE RECORDS SUMMARY | 2019-11-13 09:58 | XMS REPORT | Clinical Summary ---
Author Author Admin, Enrique Adamson Organization [email or web address] Address Unknown Phone Unavailable Allergies, Adverse Reactions, Alerts Allergy Name Reaction Description Start Date Severity Status Pr ovider BYETTA 10 MCG PEN Critical Active Lilia Clemons RN METAMUCIL Critical Active Bertrand Patel DO BACTRIM Critical Active Bertrand Paetl DO Conditions or Problems Problem Name Problem [...] acute with bronchospasm 466.0 Resolved 2 Nitza Mullins Alexaibe Acute bronchitis Narcolepsy 347.00 Active Bertrand Patel DO Narcolepsy without cataplexy Animal bite 919.8 Resolved Nitza Mullins Scrib e Other and unspecified superficial injury of other, multiple, and unspecified sites, without mention of infection Mycoplasma infection 041.81 Resolved Abiel patton Harpreet Patel Mycoplasma infection in cond itions classified elsewhere and of unspecified site Amenorrhea, secondary 626.0 Resolved Kri sti Harpreet Scrsven Absence of menstruation Depression 311 Active Bertrand Patel DO Depressive disorder, not elsewhere classified Left maxillary sinusitis 473.0 Active Bertrand marquez DO Chronic maxillary sinusitis Body Mass Index 50.0-59.9 Adult Active Chavez Patel DO Body Mass Index 50.0-59.9, adult HEALTH SCREENING ICD-V70.0 Inactive Yoli sabillon MD PhD SCABIES ICD-133.0 Inactive Yoli Mercado MD PhD 201 07/14/20 FH DIABETES ICD-V18.0 Inactive Yoli Mercado MD PhD 20 14/02/29 SINUSITIS, FRONTAL, ACUTE ICD-461.1 Inactive Yoli Mercado MD PhD COUGH ICD-786.2 Inactive Yoli Mercado MD PhD 201 09/09/28 EDEMA LEG ICD-782.3 Inactive Adele Feldman RESEARCH PHYSICIST 201 01/01/02 SHORTNESS OF BREATH ICD-786.05 Inactive Yoli Mercado MD PhD RIB PAIN, RIGHT SIDED ICD-786.50 Inactive Yoli Mercado MD PhD KNEE PAIN, RIGHT ICD-719.46 Inactive Adele chiu RESEARCH PHYSICIST Knee pain, left ICD-719.46 Inactive Adele damico RESEARCH PHYSICIST Pharyngitis-Acute ICD-462 Inactive Bertrand Redmond DO Polyuria ICD-788.42 Inactive Yoli Mercado MD P hD Cellulitis, leg, right ICD-682.6 Inactive Yuki Deluna MD Foreign body, ear ICD-931 Inactive Yoli salazar MD PhD Fatigue ICD-780.79 Inactive Ike Deluna MD 201 12/01/06 Headache ICD-784.0 Inactive Adele Gaston ARTHUR 2017 Cough ICD-786.2 Inactive Adele Feldman RESEARCH PHYSICIST 06/04 SINUSITIS, ACUTE ICD-461.9 Inactive Ike lange MD Fatigue ICD-780.79 Inactive Adele Feldman RESEARCH PHYSICIST 2017 Bronchitis acute with bronchospasm ICD-466.0 I nactive Adele Felmdan RESEARCH PHYSICIST Animal bite ICD-919.8 Inactive Adele Feldman LP N Mycoplasma infection ICD-041.81 Inactive Anit a Feldman RESEARCH PHYSICIST Amenorrhea, secondary ICD-626.0 Inactive Ani ta Feldman RESEARCH PHYSICIST Medication List Medication Instructions Start Date Stop Date Generic Name NDC Status Provider Patient Instruction LEVAQUIN 500 MG ORAL TABLET 1 tablet by mouth daily LEVOFLOXACIN 07314275827 Active Bertrand Patel DO Active ADDERALL 10 MG ORAL TABLET 1 tab twice daily 2 AMPHETAMINE-DEXTROAMPHETAMINE 14168065449 No Longer Active Nitza Phi llips Scribe Active ZITHROMAX Z-MARTIN 250 MG ORAL TABLET 2 today and then 1 daily for 4 days AZITHROMYCIN 02733965213 No Longer Active Nitza Osman lips Scribe Active BENZONATATE 200 MG ORAL CAPSULE 1 three times a day as neede d for cough BENZONATATE 49335082643 No Longer Active Nitza Brewer lips Scribe Active VITAMIN D3 36022 UNIT ORAL CAPSULE 1 pill Week x 4 mo nt for vitamin D deficiency/osteoporosis CHOLECALCIFEROL 79776398229 N o Longer Active Layla Garcia Active BACTROBAN 2 % EXTERNAL CREAM Apply to affected area BID for up to 10 days MUPIROCIN CALCIUM 72525051038 No Longer Active Ike Deluna MD Active CIPRO 500 MG ORAL TABLET 1 tablet by mouth twice daily CIPROFLOXACIN HCL 32540174728 No Longer Active Adriana Bender LPN Active AUGMENTIN 875-125 MG ORAL TABLET 1 po BID x 10 days 18/04/06 AMOXICILLIN-POT CLAVULANATE 69075671841 No Longer Active Adriana Bender LPN Active MODAFINIL 200 MG ORAL TABLET Take 1/2 tab po in the am and 1 /2 tab po at noon MODAFINIL 35777848310 Active DOLLY Nguyen Active CYCLOBENZAPRINE HCL 10 MG ORAL TABLET Take 1 tab TID PRN for mus triston pain CYCLOBENZAPRINE HCL 98291854376 No Longer Active Bertrand Patel DO Active TESSALON PERLES 100 MG ORAL CAPSULE 1 tablet by mouth 3 times da juan pablo BENZONATATE 86937358994 No Longer Active Bertrand Patel DO Ac tive NEBULIZER use as directed NEBULIZERS 40771279755 No Longer Active Bertrand Patel DO Active ALBUTEROL SULFATE (2.5 MG/3ML) 0.083% INHALATION NEBUL IZATION SOLUTION one vial per nebulizer every 4-6 hours as needed ALBUTERO L SULFATE 94179612781 No Longer Active Bertrand Patel DO Active SYMBICORT 160-4.5 MCG/ACT INHALATION AEROSOL 2 puffs BID 9 BUDESONIDE-FORMOTEROL FUMARATE 94828782149 No Longer Active Bertrand Patel DO Active PREDNISONE 20 MG ORAL TABLET take 3 tabs daily for 3 d ays, 2 tabs daily for 3 days, 1 tab daily for 3 days, 1/2 tab daily for 3 days 08/02 PREDNISONE 30968001300 No Longer Active Silvia Arell BILLING CLERK Active AZITHROMYCIN 250 MG ORAL TABLET Take 2 tabs po today then 1 tab po daily AZITHROMYCIN 74450331409 No Longer Active Silvia Arell BILLING CLERK Active AUGMENTIN 875-125 MG ORAL TABLET 1 po BID x 10 days 19/07/13 AMOXICILLIN-POT CLAVULANATE 58870771496 No Longer Active Adriana Bender LPN Active CHEWABLE CALCIUM 500-200-40 MG-UNT-MCG ORAL TABLET CHEWABLE 1 chew tab bid CALCIUM-VITAMIN D-VITAMIN K 61193084340 Active Silvia Are ll BILLING CLERK Active EQ COMPLETE MULTIVIT ADULT 50+ ORAL TABLET 1 tab po bid MULTIPLE VITAMINS-MINERALS 13538922091 Active Silvia Arell BILLING CLERK Active HYDROCODONE-ACETAMINOPHEN 7.5-325 MG ORAL TABLET TAKE ONE TAB EVERY 6 HOURS BY MOUTH NEEDED FOR PAIN HYDROCODONE-ACETAMINOPHEN 004 18474020 Active Layla Garcia Active LORTAB 7.5-500 MG ORAL TABLET take one po Q6 hours 201 09/12/01 HYDROCODONE-ACETAMINOPHEN 65089719904 No Longer Active Nirmal Robbins RN Active [facility] MELATONIN 5-10 MG ORAL TABLET EXTENDED RELEASE Jair e one by mouth daily at bedtime MELATONIN-PYRIDOXINE 21024597669 No Longer Acti ve Bertrand Patel DO Active VITAMIN E 200 UNIT ORAL CAPSULE 1 cap po qd VITAM IN E 25277085622 No Longer Active Bertrand Patel DO Active B-12 1000 MCG ORAL CAPSULE 1 tab daily CYANOCOB ALAMIN 95464820920 No Longer Active Bertrand Patel DO Active METFORMIN HCL 500 MG ORAL TABLET 1 bid METFOR MIN HCL 56647830342 No Longer Active Bertrand W Jorge DO Active FUROSEMIDE 20 MG ORAL TABLET 1 pill by mouth daily if needed for edema FUROSEMIDE 69072775444 No Longer Active Bertrand Patel DO Active PRAVASTATIN SODIUM 20 MG ORAL TABLET 1 tablet by mouth daily at bedtime PRAVASTATIN SODIUM 29871409111 No Longer Active Bertrand Patel DO Active AUGMENTIN 875-125 MG ORAL TABLET 1 pill by mouth twice daily 201 09/10/00 AMOXICILLIN-POT CLAVULANATE 15387436946 No Longer Active Yoli Mercado MD PhD Active LEVAQUIN 500 MG ORAL TABLET 1 pill by mouth daily 2013 LEVOFLOXACIN 48214185430 No Longer Active Yoli Mercado MD PhD Acti ve AMLODIPINE BESYLATE 5 MG ORAL TABLET 1 tablet by mouth daily for blood pressure AMLODIPINE BESYLATE 73364492170 Active Bertrand Patel DO Active MICARDIS 80 MG ORAL TABLET 1 tablet daily for blood pressure 07/30 TELMISARTAN 73785429632 Active Bertrand Patel DO Active MICARDIS HCT 80-12.5 MG ORAL TABLET 1 qd TELMISARTAN-HCTZ 01016035010 No Longer Active Bertrand Patel DO Active CINNAMON ALPHA LIPOIC AC CMPLX CAPSULE by mouth twice a day in AM by mouth twice a day in PM ALPHA LIPOIC [id number] CA PS 82213843765 No Longer Active Bertrand Patel DO Active AZITHROMYCIN 500 MG INTRAVENOUS SOLUTION RECONSTITUTED 1 po q da y AZITHROMYCIN 16022417984 No Longer Active Bertrand Patel DO A ctive CYMBALTA 30 MG ORAL CAPSULE DELAYED RELEASE PARTICLES 1 cap by mouth daily DULOXETINE HCL 88938830496 No Longer Active Bertrand marquez DO Active CYMBALTA 60 MG ORAL CAPSULE DELAYED RELEASE PARTICLES 1 cap by mouth daily DULOXETINE HCL 44889007820 Active Bertrand Patel DO Active WELLBUTRIN 75 MG ORAL TABLET 2 times daily BUPR OPION HCL 13293044883 No Longer Active Bertrand Patel DO Active PROAIR HFA 108 (90 Base) MCG/ACT INHALATION AEROSOL SO LUTION take one to two puffs po Q4-6 hour prn cough and shortness of breath ALBUTEROL SULFATE 70834828578 Active Silvia Vazquez APRN Active AZITHROMYCIN 250 MG ORAL TABLET take 2 po today then take 1 po days 2-5 AZITHROMYCIN 18778223896 No Longer Active Adolfo traore PA Active PERMETHRIN 5 % EXTERNAL CREAM apply neck to toes tonig ht and then rinse off in morning. repeat at 7 days PERMETHRIN 02912356952 No Longer Active Adolfo OSORIO Active AMOXICILLIN 500 MG ORAL CAPSULE 2 po BID x 10 days 201 07/15/00 AMOXICILLIN 77272142703 No Longer Active Yoli Mercado MD PhD Acti ve ALPRAZOLAM 0.5 MG ORAL TABLET 1 tab by mouth tid ALPRAZOLAM 78194622592 Active Bertrand Patel DO Active INSUPEN ULTRAFIN 31G X 6 MM USE DIRECTED INSULIN PEN NEEDLE 98812272168 No Longer Active Bertrand Patel DO Active TRANSDERM-SCOP (1.5 MG) 1 MG/3DAYS TRANSDERMAL PATCH 7 2 HOUR 1 patch applied behind ear q 3 day SCOPOLAMINE BASE 03965598699 No Lo nger Active Bertrand Patel DO Active MACRODANTIN 100 MG ORAL CAPSULE one p.o. b.i.d. x2 weeks NITROFURANTOIN MACROCRYSTAL 96443796044 No Longer Active Bertrand Patel DO Active MACRODANTIN 100 MG ORAL CAPSULE one p.o. b.i.d. x2 weeks MACRODANTIN 100 MG ORAL CAPSULE 4061778 NITROFURANTOIN MACROCRYSTAL Inactive TRANSDERM-SCOP (1.5 MG) 1 [...] days PERMETHRIN 5 % EXTER NAL CREAM 952674 PERMETHRIN Inactive WELLBUTRIN 75 MG ORAL TABLET 2 times daily WELLBUTRIN 75 MG ORAL TABLET BUPROPION HCL Inactive CYMBALTA 30 MG ORAL CAPSULE DELAYED RELEASE PARTICLES 1 cap by mouth daily CYMBALTA 30 MG ORAL CAPSULE DELAYED RELE ASE PARTICLES 657935 DULOXETINE HCL Inactive AZITHROMYCIN 500 MG INTRAVENOUS SOLUTION RECONSTITUTED 1 po q da y AZITHROMYCIN 500 MG INTRAVENOUS SOLUTION RECONSTITUTED 83601 248259 AZITHROMYCIN Inactive CINNAMON ALPHA LIPOIC AC CMPLX CAPSULE by mouth twice a day in AM by mouth twice a day in PM CINNAMON ALPHA LIPOIC AC CMPLX CAPSULE ALPHA LIPOIC [id number] CAPS Inactive MICARDIS HCT 80-12.5 MG ORAL TABLET 1 qd 07/30 MICARDIS HCT 80-12.5 MG ORAL TABLET 266160 TELMISARTAN-HCTZ Inactive PRAVASTATIN SODIUM 20 MG ORAL TABLET 1 tablet by mouth daily at bedtime PRAVASTATIN SODIUM 20 MG ORAL TABLET 740284 PRAVASTATIN SODIUM Inactive FUROSEMIDE 20 MG ORAL TABLET 1 pill by mouth daily if needed for edema FUROSEMIDE 20 MG ORAL TABLET 049723 FUROSEMIDE Inactive METFORMIN HCL 500 MG ORAL TABLET 1 bid METFORMIN HCL 500 MG ORAL TABLET 452154 METFORMIN HCL Inactive B-12 1000 MCG ORAL CAPSULE 1 tab daily B -12 1000 MCG ORAL CAPSULE CYANOCOBALAMIN Inactive VITAMIN E 200 UNIT ORAL CAPSULE 1 cap po qd 1 VITAMIN E 200 UNIT ORAL CAPSULE 1137505 VITAMIN E Inactive [facility] MELATONIN 5-10 MG [...] po daily AZITHROMYCIN 250 MG ORAL TABLET 513069 AZITHROMY BERNARDO Inactive SYMBICORT 160-4.5 MCG/ACT INHALATION AEROSOL 2 puffs BID 9 SYMBICORT 160-4.5 MCG/ACT INHALATION AEROSOL BUDESONIDE-FORM OTEROL FUMARATE Inactive ALBUTEROL SULFATE (2.5 MG/3ML) 0.083% INHALATION NEBUL IZATION SOLUTION one vial per nebulizer every 4-6 hours as needed ALBUTEROL SULFATE (2.5 MG/3ML) 0.083% INHALATION NEBULIZATION SOLUTION 057852 ALBUTER OL SULFATE Inactive NEBULIZER use as directed NEBULIZER NEBULI ZERS Inactive TESSALON PERLES 100 MG ORAL CAPSULE 1 tablet by mouth 3 times da juan pablo TESSALON PERLES 100 MG ORAL CAPSULE 843299 BENZONATATE Inactive CYCLOBENZAPRINE HCL 10 MG ORAL TABLET Take 1 tab TID PRN for mus triston pain CYCLOBENZAPRINE HCL 10 MG ORAL TABLET 992764 CYCLOBENZA ANUJA HCL Inactive AUGMENTIN 875-125 MG ORAL TABLET 1 po BID x 10 days 20 18/04/06 AUGMENTIN 875-125 MG ORAL TABLET 987855 AMOXICILLIN-POT CLAVULANATE Inactive BACTROBAN 2 % EXTERNAL CREAM Apply to affected area BID for up to 10 days BACTROBAN 2 % EXTERNAL CREAM 749474 MUPIROCIN CA LCIUM Inactive VITAMIN D3 16217 UNIT ORAL CAPSULE 1 pill Week x 4 mo nt for vitamin D deficiency/osteoporosis VITAMIN D3 58226 UNIT ORAL CAPSULE CHOLECALCIFEROL Inactive BENZONATATE 200 MG ORAL CAPSULE 1 three times a day as neede d for cough BENZONATATE 200 MG ORAL CAPSULE 363389 BENZONATA TE Inactive ZITHROMAX Z-MARTIN 250 MG ORAL TABLET 2 today and then 1 daily for 4 days ZITHROMAX Z-MARTIN 250 MG ORAL TABLET 878575 AZITHR OMYCIN Inactive ADDERALL 10 MG ORAL TABLET 1 tab twice daily 2 ADDERALL 10 MG ORAL TABLET 282933 AMPHETAMINE-DEXTROAMPHETAMINE Inactive AMOXICILLIN 500 MG ORAL CAPSULE 2 po BID x 10 days 201 07/15/00 AMOXICILLIN 500 MG ORAL CAPSULE 374211 AMOXICILLIN Inactive AZITHROMYCIN 250 MG ORAL TABLET take 2 po today then take 1 po days 2-5 AZITHROMYCIN 250 MG ORAL TABLET 444687 AZITHROMY BERNARDO Inactive LEVAQUIN 500 MG ORAL TABLET 1 pill by mouth daily 2013 LEVAQUIN 500 MG ORAL TABLET 170904 LEVOFLOXACIN Inactive AUGMENTIN 875-125 MG ORAL TABLET 1 pill by mouth twice daily 201 09/10/00 AUGMENTIN 875-125 MG ORAL TABLET 950337 AMOXICILLIN-POT CLAVULANATE Inactive AUGMENTIN 875-125 MG ORAL TABLET 1 po BID x 10 days 20 19/07/13 AUGMENTIN 875-125 MG ORAL TABLET 024782 AMOXICILLIN-POT CLAVULANATE Inactive PREDNISONE 20 MG ORAL TABLET take 3 tabs daily for 3 d ays, 2 tabs daily for 3 days, 1 tab daily for 3 days, 1/2 tab daily for 3 days 08/02 PREDNISONE 20 MG ORAL TABLET 926412 PREDNISONE Inactive CIPRO 500 MG ORAL TABLET 1 tablet by mouth twice daily CIPRO 500 MG ORAL TABLET 822155 CIPROFLOXACIN HCL Inactive Vital Signs Date Name Value Unit Range Description blood pressure, diastolic 84 mm[Hg] BP [place] blood pressure, systolic 130 mm[Hg] BP sys height E&M 65 [in_us] Bdy height pulse rate E&M 79 /min Heart rate temperature E&M 98.8 [degF] Body temp erature weight E&M 345 [lb_av] Weight Measure d blood pressure, diastolic 79 mm[Hg] BP [place] blood pressure, systolic 144 mm[Hg] BP sys height E&M 65 [in_us] Bdy height pulse rate E&M 84 /min Heart rate temperature E&M 98.4 [degF] Body temp erature weight E&M 349.31 [lb_av] Weight Measure d Diagnostic Results Date Name Value Unit Range Description Lab Report: CBC, Comp. Metabolic Panel, HGBA1C - Chemistry sodium, serum 143 mmol/L 967-097 0186/01/02 carbon dioxide, venous blood 31.7 mmol/L 21.0-32 .0 potassium, serum 4.4 mmol/L 3.5-5.2 chloride, serum 104 mmol/L 98-107 blood glucose 93 mg/dL 65-110 urea nitrogen, blood 16 mg/dL 7-18 creatinine, serum 0.73 mg/dL 0.60-1.30 alanine aminotransferase (SGPT), serum 25 U/L 12-78 aspartate aminotransferase (SGOT), serum 20 U/L 15-37 calcium, serum 8.6 mg/dL 8.5-10.1 bilirubin, serum, total 0.40 mg/dL 0.00-1.00 hemoglobin A1C, blood, as % of total hemoglobin 6.1 % 4.3-6.0 Lab Report: CBC, Comp. Metabolic Panel, HGBA1C - Hematology leukocyte count, blood 7.7 10^3/MM^3 10*3/mm3 4.6-10.2 erythrocyte (RBC) count 4.16 10^6/MM^3 10*6/mm3 3.80-5.8 0 hemoglobin, blood 12.3 g/dL 12.0-16.0 hematocrit, blood 39.0 % 37.0-47.0 mean corpuscular volume, RBC 94 fL 80-97 mean corpuscular hemoglobin, RBC 29.5 pg 27. 0-31.2 mean corpuscular hemoglobin concentration, RBC 31.5 G/DL % 31.8-35.4 red blood cell distribution width 12.3 % 11 .6-14.8 platelet count 279 10^3/MM^3 10*3/mm3 142-424 Encounters Code Encounter Date Provider Facility CPT-96707 Level 3 Est. Patient 11:40:23 CDT Bertrand marquez [facility]-20242 Level 4 Est. Patient 15:33:35 HAT MENDER Bertrand marquez [facility]-36972 Level 4 Est. Patient 12:31:54 CDT Bertrand marquez [facility]-78910 Level 3 Est. Patient 11:27:00 HAT MENDER Ike Deluna MD [facility]-84934 Level 3 Est. Patient 08:50:57 HAT MENDER Silvia Are ll [facility]-98197 Level 3 Est. Patient 10:04:13 CDT Bertrand marquez [facility]-97705 Level 4 Est. Patient 16:02:10 HAT MENDER Silvia Are ll [facility]-30843 Level 3 Est. Patient 13:04:54 HAT MENDER Silvia Are [facility]-67116 Level 3 Est. Patient 12:56:37 CDT Bertrand marquez [facility] CPT-57335 Level 3 Est. Patient 19:12:03 CDT Yoli tolbert MD [facility] CPT-46285 Level 3 Est. Patient 14:36:01 CDT Yoli tolbert MD [facility] CPT-76072 Level 2 Est. Patient 08:00:22 CDT Jcarlos dc MD [facility]-64297 Level 3 Est. Patient 19:06:55 CDT Bertrand marquez [facility] CPT-64547 Level 3 Est. Patient 10:08:23 HAT MENDER Bertrand marquez [facility] CPT-61817 Level 3 Est. Patient 16:37:54 HAT MENDER Bertrand marquez [facility] CPT-07645 Level 3 Est. Patient 11:31:59 HAT MENDER Bertrand marquez [facility] CPT-95099 Level 3 Est. Patient 10:20:08 CDT Adolfo villasenor [facility] CPT-02743 Level 3 Est. Patient 13:45:20 CDT Sanket Josekelvin buckley [facility] CPT-53487 Level 3 Est. Patient 12:51:06 CDT Adolfo villasenor [facility] CPT-64452 Level 3 Est. Patient 11:22:51 HAT MENDER Yoli tolbert MD PhD [facility] CPT-57011 Level 3 Est. Patient 13:33:19 CDT Bertrand marquez [facility] Procedures Code Procedure Name Date Entry Date Standard Desc ription CPT-55855 Wound Culture - LAB USE ONLY 15:45:25 CDT 2 CPT-30973 Venipuncture Draw Fee 10:23:01 CDT CPT-J0696 Rocephin 1000 mg (Ceftriaxone) 16:20:30 HAT MENDER CPT-29670 Abx/Therapy Injection 16:20:29 HAT MENDER CPT-J0696 Rocephin 1gm Inj Solr 15:51:59 HAT MENDER CPT-90859 Chest 2V Frontal and Lat 15:20:28 HAT MENDER 07/22 CPT-14311 Breathing Tx 14:51:55 HAT MENDER CPT-72808 Breathing Tx 09:57:16 HAT MENDER CPT-25713 Knee comp 4/> V 11:58:06 HAT MENDER
--- OUTSIDE RECORDS SUMMARY | 2019-11-13 09:58 | XMS REPORT | Clinical Summary ---
Author Author Admin, Enrique Adamson Organization [employer] Address Unknown Phone Unavailable Allergies, Adverse Reactions, [...] 09/09/28 EDEMA LEG ICD-782.3 Inactive Adele Feldman RN TRANSITIONAL 201 01/01/02 SHORTNESS OF BREATH ICD-786.05 Inactive Yoli Mercado MD PhD RIB PAIN, RIGHT SIDED ICD-786.50 Inactive Yoli Mercado MD PhD KNEE PAIN, RIGHT ICD-719.46 Inactive Adele chiu RN TRANSITIONAL Knee pain, left ICD-719.46 Inactive Adele damico RN TRANSITIONAL Pharyngitis-Acute ICD-462 Inactive Bertrand Redmond DO Polyuria ICD-788.42 Inactive Yoli Mercado MD P hD Cellulitis, leg, right ICD-682.6 Inactive Yuki Deluna MD Foreign body, ear ICD-931 Inactive Yoli salazar MD PhD Fatigue ICD-780.79 Inactive Ike Deluna MD 201 12/01/06 Headache ICD-784.0 Inactive Adele Gaston ARTHUR 2017 Cough ICD-786.2 Inactive Adele Feldman RN TRANSITIONAL 06/04 SINUSITIS, ACUTE ICD-461.9 Inactive Ike lange MD Fatigue ICD-780.79 Inactive Adele Feldman RN TRANSITIONAL 2017 Bronchitis acute with bronchospasm ICD-466.0 I nactive Adele Feldman RN TRANSITIONAL Animal bite ICD-919.8 Inactive Adele Feldman LP N Mycoplasma infection ICD-041.81 Inactive Anit a Feldman RN TRANSITIONAL Amenorrhea, secondary ICD-626.0 Inactive Ani ta Feldman RN TRANSITIONAL Medication List Medication Instructions Start Date Stop Date Generic Name NDC Status Provider Patient Instruction LEVAQUIN 500 MG ORAL TABLET 1 tablet by mouth daily LEVOFLOXACIN 54996432379 Active Bertrand Patel DO Active ADDERALL 10 MG ORAL TABLET 1 tab twice daily 2 AMPHETAMINE-DEXTROAMPHETAMINE 07610603577 No Longer Active Nitza Phi llips Scribe Active ZITHROMAX Z-MARTIN 250 MG ORAL TABLET 2 today and then 1 daily for 4 days AZITHROMYCIN 57851694460 No Longer Active Nitza Osman lips Scribe Active BENZONATATE 200 MG ORAL CAPSULE 1 three times a day as neede d for cough BENZONATATE 01382470012 No Longer Active Nitza Brewer lips Scribe Active VITAMIN D3 17875 UNIT ORAL CAPSULE 1 pill Week x 4 mo nt for vitamin D deficiency/osteoporosis CHOLECALCIFEROL 47828388659 N o Longer Active Layla Garcia Active BACTROBAN 2 % EXTERNAL CREAM Apply to affected area BID for up to 10 days MUPIROCIN CALCIUM 81729088816 No Longer Active Ike Deluna MD Active CIPRO 500 MG ORAL TABLET 1 tablet by mouth twice daily CIPROFLOXACIN HCL 54163150650 No Longer Active Adriana Bender LPN Active AUGMENTIN 875-125 MG ORAL TABLET 1 po BID x 10 days 18/04/06 AMOXICILLIN-POT CLAVULANATE 23702140528 No Longer Active Adriana Bender LPN Active MODAFINIL 200 MG ORAL TABLET Take 1/2 tab po in the am and 1 /2 tab po at noon MODAFINIL 37121004598 Active DOLLY Nguyen Active CYCLOBENZAPRINE HCL 10 MG ORAL TABLET Take 1 tab TID PRN for mus triston pain CYCLOBENZAPRINE HCL 42609302651 No Longer Active Bertrand Patel DO Active TESSALON PERLES 100 MG ORAL CAPSULE 1 tablet by mouth 3 times da juan pablo BENZONATATE 90942296798 No Longer Active Bertrand Patel DO Ac tive NEBULIZER use as directed NEBULIZERS 77205361122 No Longer Active Bertrand Patel DO Active ALBUTEROL SULFATE (2.5 MG/3ML) 0.083% INHALATION NEBUL IZATION SOLUTION one vial per nebulizer every 4-6 hours as needed ALBUTERO L SULFATE 42789858579 No Longer Active Bertrand Patel DO Active SYMBICORT 160-4.5 MCG/ACT INHALATION AEROSOL 2 puffs BID 9 BUDESONIDE-FORMOTEROL FUMARATE 93147012091 No Longer Active Bertrand Patel DO Active PREDNISONE 20 MG ORAL TABLET take 3 tabs daily for 3 d ays, 2 tabs daily for 3 days, 1 tab daily for 3 days, 1/2 tab daily for 3 days 08/02 PREDNISONE 24485126508 No Longer Active Silvia Arell OFFENSIVE COORDINATOR Active AZITHROMYCIN 250 MG ORAL TABLET Take 2 tabs po today then 1 tab po daily AZITHROMYCIN 30096555089 No Longer Active Silvia Arell OFFENSIVE COORDINATOR Active AUGMENTIN 875-125 MG ORAL TABLET 1 po BID x 10 days 19/07/13 AMOXICILLIN-POT CLAVULANATE 48678620317 No Longer Active Adriana Bender LPN Active CHEWABLE CALCIUM 500-200-40 MG-UNT-MCG ORAL TABLET CHEWABLE 1 chew tab bid CALCIUM-VITAMIN D-VITAMIN K 53624260235 Active Silvia Are ll OFFENSIVE COORDINATOR Active EQ COMPLETE MULTIVIT ADULT 50+ ORAL TABLET 1 tab po bid MULTIPLE VITAMINS-MINERALS 68276034413 Active Silvia Arell OFFENSIVE COORDINATOR Active HYDROCODONE-ACETAMINOPHEN 7.5-325 MG ORAL TABLET TAKE ONE TAB EVERY 6 HOURS BY MOUTH NEEDED FOR PAIN HYDROCODONE-ACETAMINOPHEN 004 22729711 Active Layla Garcia Active LORTAB 7.5-500 MG ORAL TABLET take one po Q6 hours 201 09/12/01 HYDROCODONE-ACETAMINOPHEN 35406151759 No Longer Active Nirmal Robbins RN Active [facility] MELATONIN 5-10 MG ORAL TABLET EXTENDED RELEASE Jair e one by mouth daily at bedtime MELATONIN-PYRIDOXINE 80925331145 No Longer Acti ve Bertrand Patel DO Active VITAMIN E 200 UNIT ORAL CAPSULE 1 cap po qd VITAM IN E 66347933001 No Longer Active Bertrand Patel DO Active B-12 1000 MCG ORAL CAPSULE 1 tab daily CYANOCOB ALAMIN 20594968581 No Longer Active Bertrand Patel DO Active METFORMIN HCL 500 MG ORAL TABLET 1 bid METFOR MIN HCL 41557946861 No Longer Active Bertrand W Jorge DO Active FUROSEMIDE 20 MG ORAL TABLET 1 pill by mouth daily if needed for edema FUROSEMIDE 33452706751 No Longer Active Bertrand Patel DO Active PRAVASTATIN SODIUM 20 MG ORAL TABLET 1 tablet by mouth daily at bedtime PRAVASTATIN SODIUM 25601264153 No Longer Active Bertrand Patel DO Active AUGMENTIN 875-125 MG ORAL TABLET 1 pill by mouth twice daily 201 09/10/00 AMOXICILLIN-POT CLAVULANATE 83260156363 No Longer Active Yoli Mercado MD PhD Active LEVAQUIN 500 MG ORAL TABLET 1 pill by mouth daily 2013 LEVOFLOXACIN 72460852770 No Longer Active Yoli Mercado MD PhD Acti ve AMLODIPINE BESYLATE 5 MG ORAL TABLET 1 tablet by mouth daily for blood pressure AMLODIPINE BESYLATE 56621537345 Active Bertrand Patel DO Active MICARDIS 80 MG ORAL TABLET 1 tablet daily for blood pressure 07/30 TELMISARTAN 61171786287 Active Bertrand Patel DO Active MICARDIS HCT 80-12.5 MG ORAL TABLET 1 qd TELMISARTAN-HCTZ 88474157909 No Longer Active Bertrand Patel DO Active CINNAMON ALPHA LIPOIC AC CMPLX CAPSULE by mouth twice a day in AM by mouth twice a day in PM ALPHA LIPOIC [id number] CA PS 04431627709 No Longer Active Bertrand Patel DO Active AZITHROMYCIN 500 MG INTRAVENOUS SOLUTION RECONSTITUTED 1 po q da y AZITHROMYCIN 01659696905 No Longer Active Berrtand Patel DO A ctive CYMBALTA 30 MG ORAL CAPSULE DELAYED RELEASE PARTICLES 1 cap by mouth daily DULOXETINE HCL 98912318565 No Longer Active Bertrand marquez DO Active CYMBALTA 60 MG ORAL CAPSULE DELAYED RELEASE PARTICLES 1 cap by mouth daily DULOXETINE HCL 04115696647 Active Bertrand Patel DO Active WELLBUTRIN 75 MG ORAL TABLET 2 times daily BUPR OPION HCL 96873064540 No Longer Active Bertrand Patel DO Active PROAIR HFA 108 (90 Base) MCG/ACT INHALATION AEROSOL SO LUTION take one to two puffs po Q4-6 hour prn cough and shortness of breath ALBUTEROL SULFATE 01709426337 Active Silvia Vazquez APRN Active AZITHROMYCIN 250 MG ORAL TABLET take 2 po today then take 1 po days 2-5 AZITHROMYCIN 32967310575 No Longer Active Adolfo traore PA Active PERMETHRIN 5 % EXTERNAL CREAM apply neck to toes tonig ht and then rinse off in morning. repeat at 7 days PERMETHRIN 89501348232 No Longer Active Adolfo OSORIO Active AMOXICILLIN 500 MG ORAL CAPSULE 2 po BID x 10 days 201 07/15/00 AMOXICILLIN 97966566149 No Longer Active Yoli Mercado MD PhD Acti ve ALPRAZOLAM 0.5 MG ORAL TABLET 1 tab by mouth tid ALPRAZOLAM 25595235243 Active Bertrand Patel DO Active INSUPEN ULTRAFIN 31G X 6 MM USE DIRECTED INSULIN PEN NEEDLE 50829139711 No Longer Active Bertrand Patel DO Active TRANSDERM-SCOP (1.5 MG) 1 MG/3DAYS TRANSDERMAL PATCH 7 2 HOUR 1 patch applied behind ear q 3 day SCOPOLAMINE BASE 66099826693 No Lo nger Active Bertrand Patel DO Active MACRODANTIN 100 MG ORAL CAPSULE one p.o. b.i.d. x2 weeks NITROFURANTOIN MACROCRYSTAL 80480625179 No Longer Active Bertrand Patel DO Active MACRODANTIN 100 MG ORAL CAPSULE one p.o. b.i.d. x2 weeks MACRODANTIN 100 MG ORAL CAPSULE 9210913 NITROFURANTOIN MACROCRYSTAL Inactive TRANSDERM-SCOP (1.5 MG) 1 [...] days PERMETHRIN 5 % EXTER NAL CREAM 780482 PERMETHRIN Inactive WELLBUTRIN 75 MG ORAL TABLET 2 times daily WELLBUTRIN 75 MG ORAL TABLET BUPROPION HCL Inactive CYMBALTA 30 MG ORAL CAPSULE DELAYED RELEASE PARTICLES 1 cap by mouth daily CYMBALTA 30 MG ORAL CAPSULE DELAYED RELE ASE PARTICLES 653294 DULOXETINE HCL Inactive AZITHROMYCIN 500 MG INTRAVENOUS SOLUTION RECONSTITUTED 1 po q da y AZITHROMYCIN 500 MG INTRAVENOUS SOLUTION RECONSTITUTED 76347 130605 AZITHROMYCIN Inactive CINNAMON ALPHA LIPOIC AC CMPLX CAPSULE by mouth twice a day in AM by mouth twice a day in PM CINNAMON ALPHA LIPOIC AC CMPLX CAPSULE ALPHA LIPOIC [id number] CAPS Inactive MICARDIS HCT 80-12.5 MG ORAL TABLET 1 qd 07/30 MICARDIS HCT 80-12.5 MG ORAL TABLET 399320 TELMISARTAN-HCTZ Inactive PRAVASTATIN SODIUM 20 MG ORAL TABLET 1 tablet by mouth daily at bedtime PRAVASTATIN SODIUM 20 MG ORAL TABLET 755759 PRAVASTATIN SODIUM Inactive FUROSEMIDE 20 MG ORAL TABLET 1 pill by mouth daily if needed for edema FUROSEMIDE 20 MG ORAL TABLET 159343 FUROSEMIDE Inactive METFORMIN HCL 500 MG ORAL TABLET 1 bid METFORMIN HCL 500 MG ORAL TABLET 609207 METFORMIN HCL Inactive B-12 1000 MCG ORAL CAPSULE 1 tab daily B -12 1000 MCG ORAL CAPSULE CYANOCOBALAMIN Inactive VITAMIN E 200 UNIT ORAL CAPSULE 1 cap po qd 1 VITAMIN E 200 UNIT ORAL CAPSULE 0251975 VITAMIN E Inactive [facility] MELATONIN 5-10 MG [...] po daily AZITHROMYCIN 250 MG ORAL TABLET 317168 AZITHROMY BERNARDO Inactive SYMBICORT 160-4.5 MCG/ACT INHALATION AEROSOL 2 puffs BID 9 SYMBICORT 160-4.5 MCG/ACT INHALATION AEROSOL BUDESONIDE-FORM OTEROL FUMARATE Inactive ALBUTEROL SULFATE (2.5 MG/3ML) 0.083% INHALATION NEBUL IZATION SOLUTION one vial per nebulizer every 4-6 hours as needed ALBUTEROL SULFATE (2.5 MG/3ML) 0.083% INHALATION NEBULIZATION SOLUTION 997232 ALBUTER OL SULFATE Inactive NEBULIZER use as directed NEBULIZER NEBULI ZERS Inactive TESSALON PERLES 100 MG ORAL CAPSULE 1 tablet by mouth 3 times da juan pablo TESSALON PERLES 100 MG ORAL CAPSULE 355213 BENZONATATE Inactive CYCLOBENZAPRINE HCL 10 MG ORAL TABLET Take 1 tab TID PRN for mus triston pain CYCLOBENZAPRINE HCL 10 MG ORAL TABLET 830530 CYCLOBENZA ANUJA HCL Inactive AUGMENTIN 875-125 MG ORAL TABLET 1 po BID x 10 days 20 18/04/06 AUGMENTIN 875-125 MG ORAL TABLET 289334 AMOXICILLIN-POT CLAVULANATE Inactive BACTROBAN 2 % EXTERNAL CREAM Apply to affected area BID for up to 10 days BACTROBAN 2 % EXTERNAL CREAM 327728 MUPIROCIN CA LCIUM Inactive VITAMIN D3 45004 UNIT ORAL CAPSULE 1 pill Week x 4 mo nt for vitamin D deficiency/osteoporosis VITAMIN D3 48828 UNIT ORAL CAPSULE CHOLECALCIFEROL Inactive BENZONATATE 200 MG ORAL CAPSULE 1 three times a day as neede d for cough BENZONATATE 200 MG ORAL CAPSULE 761436 BENZONATA TE Inactive ZITHROMAX Z-MARTIN 250 MG ORAL TABLET 2 today and then 1 daily for 4 days ZITHROMAX Z-MARTIN 250 MG ORAL TABLET 748861 AZITHR OMYCIN Inactive ADDERALL 10 MG ORAL TABLET 1 tab twice daily 2 ADDERALL 10 MG ORAL TABLET 086549 AMPHETAMINE-DEXTROAMPHETAMINE Inactive AMOXICILLIN 500 MG ORAL CAPSULE 2 po BID x 10 days 201 07/15/00 AMOXICILLIN 500 MG ORAL CAPSULE 002830 AMOXICILLIN Inactive AZITHROMYCIN 250 MG ORAL TABLET take 2 po today then take 1 po days 2-5 AZITHROMYCIN 250 MG ORAL TABLET 277745 AZITHROMY BERNARDO Inactive LEVAQUIN 500 MG ORAL TABLET 1 pill by mouth daily 2013 LEVAQUIN 500 MG ORAL TABLET 825626 LEVOFLOXACIN Inactive AUGMENTIN 875-125 MG ORAL TABLET 1 pill by mouth twice daily 201 09/10/00 AUGMENTIN 875-125 MG ORAL TABLET 880537 AMOXICILLIN-POT CLAVULANATE Inactive AUGMENTIN 875-125 MG ORAL TABLET 1 po BID x 10 days 20 19/07/13 AUGMENTIN 875-125 MG ORAL TABLET 248005 AMOXICILLIN-POT CLAVULANATE Inactive PREDNISONE 20 MG ORAL TABLET take 3 tabs daily for 3 d ays, 2 tabs daily for 3 days, 1 tab daily for 3 days, 1/2 tab daily for 3 days 08/02 PREDNISONE 20 MG ORAL TABLET 449771 PREDNISONE Inactive CIPRO 500 MG ORAL TABLET 1 tablet by mouth twice daily CIPRO 500 MG ORAL TABLET 530726 CIPROFLOXACIN HCL Inactive Vital Signs Date Name [...] HGBA1C - Chemistry sodium, serum 143 mmol/L 968-958 5971/01/02 carbon dioxide, venous blood 31.7 mmol/L 21.0-32 [...] 142-424 Encounters Code Encounter Date Provider Facility CPT-23526 Level 3 Est. Patient 11:40:23 CDT Bertrand marquez [facility]-13205 Level 4 Est. Patient 15:33:35 SURGEON/PRESIDENT Bertrand marquez [facility]-52251 Level 4 Est. Patient 12:31:54 CDT Bertrand marquez [facility]-17077 Level 3 Est. Patient 11:27:00 SURGEON/PRESIDENT Ike Deluna MD [facility]-48738 Level 3 Est. Patient 08:50:57 SURGEON/PRESIDENT Silvia Are ll [facility]-44803 Level 3 Est. Patient 10:04:13 CDT Bertrand marquez [facility]-35757 Level 4 Est. Patient 16:02:10 SURGEON/PRESIDENT Silvia Are ll [facility]-53162 Level 3 Est. Patient 13:04:54 SURGEON/PRESIDENT Silvia Are [facility]-43158 Level 3 Est. Patient 12:56:37 CDT Bertrand marquez [facility] CPT-88496 Level 3 Est. Patient 19:12:03 CDT Yoli tolbert MD [facility] CPT-86197 Level 3 Est. Patient 14:36:01 CDT Yoli tolbert MD [facility] CPT-90010 Level 2 Est. Patient 08:00:22 CDT Jcarlos dc MD [facility]-88361 Level 3 Est. Patient 19:06:55 CDT Bertrand marquez [facility] CPT-86522 Level 3 Est. Patient 10:08:23 SURGEON/PRESIDENT Bertrand marquez [facility] CPT-10208 Level 3 Est. Patient 16:37:54 SURGEON/PRESIDENT Bertrand marquez [facility] CPT-79247 Level 3 Est. Patient 11:31:59 SURGEON/PRESIDENT Bertrand marquez [facility] CPT-42813 Level 3 Est. Patient 10:20:08 CDT Adolfo villasenor [facility] CPT-14858 Level 3 Est. Patient 13:45:20 CDT Sanket Josekelvin buckley [facility] CPT-21114 Level 3 Est. Patient 12:51:06 CDT Adolfo villasenor [facility] CPT-93267 Level 3 Est. Patient 11:22:51 SURGEON/PRESIDENT Yoli tolbert MD PhD [facility] CPT-83533 Level 3 Est. Patient 13:33:19 CDT Bertrand marquez [facility] Procedures Code Procedure Name Date Entry Date Standard Desc ription CPT-55370 Wound Culture - LAB USE ONLY 15:45:25 CDT 2 CPT-37285 Venipuncture Draw Fee 10:23:01 CDT CPT-J0696 Rocephin 1000 mg (Ceftriaxone) 16:20:30 SURGEON/PRESIDENT CPT-94622 Abx/Therapy Injection 16:20:29 SURGEON/PRESIDENT CPT-J0696 Rocephin 1gm Inj Solr 15:51:59 SURGEON/PRESIDENT CPT-31325 Chest 2V Frontal and Lat 15:20:28 SURGEON/PRESIDENT 07/22 CPT-70437 Breathing Tx 14:51:55 SURGEON/PRESIDENT CPT-11544 Breathing Tx 09:57:16 SURGEON/PRESIDENT CPT-13282 Knee comp 4/> V 11:58:06 SURGEON/PRESIDENT
--- OUTSIDE RECORDS SUMMARY | 2019-11-13 09:58 | XMS REPORT | Clinical Summary ---
Author Author Admin, Enrique Adamson Organization [facility] Address Unknown Phone Unavailable Allergies, Adverse [...] 466.0 Resolved 2 Nitza Liuibe Acute bronchitis Narcolepsy 347.00 Active Bertrand Patel DO Narcolepsy without cataplexy Animal bite 919.8 Resolved Nitza Liuib e Other and unspecified superficial injury of other, multiple, and unspecified sites, without mention of infection Mycoplasma infection 041.81 Resolved Abiel Mullins Scribe Mycoplasma infection in cond itions [...] 09/09/28 EDEMA LEG ICD-782.3 Inactive Adele Feldman BUDGET OFFICER 201 01/01/02 SHORTNESS OF BREATH ICD-786.05 Inactive Yoli Mercado MD PhD RIB PAIN, RIGHT SIDED ICD-786.50 Inactive Yoli Mercado MD PhD KNEE PAIN, RIGHT ICD-719.46 Inactive Adele chiu BUDGET OFFICER Knee pain, left ICD-719.46 Inactive Adele damico BUDGET OFFICER Pharyngitis-Acute ICD-462 Inactive Bertrand Redmond DO Polyuria ICD-788.42 Inactive Yoli Mercado MD P hD Cellulitis, leg, right ICD-682.6 Inactive Yuki Deluna MD Foreign body, ear ICD-931 Inactive Yoli salazar MD PhD Fatigue ICD-780.79 Inactive Ike Deluna MD 201 12/01/06 Headache ICD-784.0 Inactive Adele Feldman BUDGET OFFICER 2017 Cough ICD-786.2 Inactive Adele Feldman BUDGET OFFICER 06/04 SINUSITIS, ACUTE ICD-461.9 Inactive Ike lange MD Fatigue ICD-780.79 Inactive Adele Feldman BUDGET OFFICER 2017 Bronchitis acute with bronchospasm ICD-466.0 I nactive Adele Feldman BUDGET OFFICER Animal bite ICD-919.8 Inactive Adele Feldman LP N Mycoplasma infection ICD-041.81 Inactive Anit a Feldman BUDGET OFFICER Amenorrhea, secondary ICD-626.0 Inactive Ani ta Feldman BUDGET OFFICER Medication List Medication Instructions Start Date Stop Date Generic Name NDC Status Provider Patient Instruction LEVAQUIN 500 MG ORAL TABLET 1 tablet by mouth daily LEVOFLOXACIN 87057524011 Active Bertrand Patel DO Active ADDERALL 10 MG ORAL TABLET 1 tab twice daily 2 AMPHETAMINE-DEXTROAMPHETAMINE 10395025127 No Longer Active Nitza Phi llips Scribe Active ZITHROMAX Z-MARTIN 250 MG ORAL TABLET 2 today and then 1 daily for 4 days AZITHROMYCIN 10716723854 No Longer Active Nitza Osman lips Scribe Active BENZONATATE 200 MG ORAL CAPSULE 1 three times a day as neede d for cough BENZONATATE 28140751122 No Longer Active Nitza Brewer lips Scribe Active VITAMIN D3 61259 UNIT ORAL CAPSULE 1 pill Week x 4 mo [facility] for vitamin D deficiency/osteoporosis CHOLECALCIFEROL 10215130113 N o Longer Active Layla Garcia Active BACTROBAN 2 % EXTERNAL CREAM Apply to affected area BID for up to 10 days MUPIROCIN CALCIUM 64915854556 No Longer Active Ike Deluna MD Active CIPRO 500 MG ORAL TABLET 1 tablet by mouth twice daily CIPROFLOXACIN HCL 33412713662 No Longer Active Adriana Bender LPN Active AUGMENTIN 875-125 MG ORAL TABLET 1 po BID x 10 days 18/04/06 AMOXICILLIN-POT CLAVULANATE 81447123756 No Longer Active Adrinaa Bender LPN Active MODAFINIL 200 MG ORAL TABLET Take 1/2 tab po in the am and 1 /2 tab po at noon MODAFINIL 44663508599 Active DOLLY Nguyen Active CYCLOBENZAPRINE HCL 10 MG ORAL TABLET Take 1 tab TID PRN for mus triston pain CYCLOBENZAPRINE HCL 18802848448 No Longer Active Bertrand Patel DO Active TESSALON PERLES 100 MG ORAL CAPSULE 1 tablet by mouth 3 times da juan pablo BENZONATATE 28537450208 No Longer Active Bertrand Patel DO Ac tive NEBULIZER use as directed NEBULIZERS 26867890319 No Longer Active Bertrand Patel DO Active ALBUTEROL SULFATE (2.5 MG/3ML) 0.083% INHALATION NEBUL IZATION SOLUTION one vial per nebulizer every 4-6 hours as needed ALBUTERO L SULFATE 99506951535 No Longer Active Bertrand Patel DO Active SYMBICORT 160-4.5 MCG/ACT INHALATION AEROSOL 2 puffs BID 9 BUDESONIDE-FORMOTEROL FUMARATE 69425687447 No Longer Active Bertrand Patel DO Active PREDNISONE 20 MG ORAL TABLET take 3 tabs daily for 3 d ays, 2 tabs daily for 3 days, 1 tab daily for 3 days, 1/2 tab daily for 3 days 08/02 PREDNISONE 80113714756 No Longer Active Silvia Arell [employer]W MECHANIC Active AZITHROMYCIN 250 MG ORAL TABLET Take 2 tabs po today then 1 tab po daily AZITHROMYCIN 14486779921 No Longer Active Silvia Arell [employer]W MECHANIC Active AUGMENTIN 875-125 MG ORAL TABLET 1 po BID x 10 days 19/07/13 AMOXICILLIN-POT CLAVULANATE 54370780148 No Longer Active Adriana Bender LPN Active CHEWABLE CALCIUM 500-200-40 MG-UNT-MCG ORAL TABLET CHEWABLE 1 chew tab bid CALCIUM-VITAMIN D-VITAMIN K 01715183302 Active Silvia Are ll [employer]W MECHANIC Active EQ COMPLETE MULTIVIT ADULT 50+ ORAL TABLET 1 tab po bid MULTIPLE VITAMINS-MINERALS 53752335805 Active Silvia Arell CHAIN SAW MECHANIC Active HYDROCODONE-ACETAMINOPHEN 7.5-325 MG ORAL TABLET TAKE ONE TAB EVERY 6 HOURS BY MOUTH NEEDED FOR PAIN HYDROCODONE-ACETAMINOPHEN 004 19443236 Active Layla Garcia Active LORTAB 7.5-500 MG ORAL TABLET take one po Q6 hours 201 09/12/01 HYDROCODONE-ACETAMINOPHEN 29386627244 No Longer Active Nirmal Robbins RN Active [facility] MELATONIN 5-10 MG ORAL TABLET EXTENDED RELEASE Jair e one by mouth daily at bedtime MELATONIN-PYRIDOXINE 35954248984 No Longer Acti ve Bertrand Patel DO Active VITAMIN E 200 UNIT ORAL CAPSULE 1 cap po qd VITAM IN E 70673327163 No Longer Active Bertrand Patel DO Active B-12 1000 MCG ORAL CAPSULE 1 tab daily CYANOCOB ALAMIN 25424351864 No Longer Active Bertrand Patel DO Active METFORMIN HCL 500 MG ORAL TABLET 1 bid METFOR MIN HCL 95620167400 No Longer Active Bertrand W Jorge DO Active FUROSEMIDE 20 MG ORAL TABLET 1 pill by mouth daily if needed for edema FUROSEMIDE 65088968555 No Longer Active Bertrand Patel DO Active PRAVASTATIN SODIUM 20 MG ORAL TABLET 1 tablet by mouth daily at bedtime PRAVASTATIN SODIUM 74491170531 No Longer Active Bertrand Patel DO Active AUGMENTIN 875-125 MG ORAL TABLET 1 pill by mouth twice daily 201 09/10/00 AMOXICILLIN-POT CLAVULANATE 61122673050 No Longer Active Yoli Mercado MD PhD Active LEVAQUIN 500 MG ORAL TABLET 1 pill by mouth daily 2013 LEVOFLOXACIN 49332322638 No Longer Active Yoli Mercado MD PhD Acti ve AMLODIPINE BESYLATE 5 MG ORAL TABLET 1 tablet by mouth daily for blood pressure AMLODIPINE BESYLATE 35457331440 Active Bertrand Patel DO Active MICARDIS 80 MG ORAL TABLET 1 tablet daily for blood pressure 07/30 TELMISARTAN 80490908105 Active Bertrand Patel DO Active MICARDIS HCT 80-12.5 MG ORAL TABLET 1 qd TELMISARTAN-HCTZ 42942915098 No Longer Active Bertrand Patel DO Active CINNAMON ALPHA LIPOIC AC CMPLX CAPSULE by mouth twice a day in AM by mouth twice a day in PM ALPHA LIPOIC [id number] CA PS 74921198228 No Longer Active Bertrand Patel DO Active AZITHROMYCIN 500 MG INTRAVENOUS SOLUTION RECONSTITUTED 1 po q da y AZITHROMYCIN 05987356113 No Longer Active Bertrand Patel DO A ctive CYMBALTA 30 MG ORAL CAPSULE DELAYED RELEASE PARTICLES 1 cap by mouth daily DULOXETINE HCL 48706841319 No Longer Active Bertrand marquez DO Active CYMBALTA 60 MG ORAL CAPSULE DELAYED RELEASE PARTICLES 1 cap by mouth daily DULOXETINE HCL 71906253946 Active Bertrand Patel DO Active WELLBUTRIN 75 MG ORAL TABLET 2 times daily BUPR OPION HCL 55493313878 No Longer Active Bertrand Patel DO Active PROAIR HFA 108 (90 Base) MCG/ACT INHALATION AEROSOL SO LUTION take one to two puffs po Q4-6 hour prn cough and shortness of breath ALBUTEROL SULFATE 74875091200 Active Silvia Vazquez APRN Active AZITHROMYCIN 250 MG ORAL TABLET take 2 po today then take 1 po days 2-5 AZITHROMYCIN 75691769880 No Longer Active Adolfo traore PA Active PERMETHRIN 5 % EXTERNAL CREAM apply neck to toes tonig ht and then rinse off in morning. repeat at 7 days PERMETHRIN 66960182900 No Longer Active Adolfo OSORIO Active AMOXICILLIN 500 MG ORAL CAPSULE 2 po BID x 10 days 201 07/15/00 AMOXICILLIN 78935051964 No Longer Active Yoli Mercado MD PhD Acti ve ALPRAZOLAM 0.5 MG ORAL TABLET 1 tab by mouth tid ALPRAZOLAM 60434539880 Active Bertrand Patel DO Active INSUPEN ULTRAFIN 31G X 6 MM USE DIRECTED INSULIN PEN NEEDLE 86021936935 No Longer Active Bertrand Patel DO Active TRANSDERM-SCOP (1.5 MG) 1 MG/3DAYS TRANSDERMAL PATCH 7 2 HOUR 1 patch applied behind ear q 3 day SCOPOLAMINE BASE 31379404681 No Lo nger Active Bertrand Patel DO Active MACRODANTIN 100 MG ORAL CAPSULE one p.o. b.i.d. x2 weeks NITROFURANTOIN MACROCRYSTAL 01463685240 No Longer Active Bertrand Patel DO Active MACRODANTIN 100 MG ORAL CAPSULE one p.o. b.i.d. x2 weeks MACRODANTIN 100 MG ORAL CAPSULE 3108055 NITROFURANTOIN MACROCRYSTAL Inactive TRANSDERM-SCOP (1.5 MG) 1 [...] days PERMETHRIN 5 % EXTER NAL CREAM 869066 PERMETHRIN Inactive WELLBUTRIN 75 MG ORAL TABLET 2 times daily WELLBUTRIN 75 MG ORAL TABLET BUPROPION HCL Inactive CYMBALTA 30 MG ORAL CAPSULE DELAYED RELEASE PARTICLES 1 cap by mouth daily CYMBALTA 30 MG ORAL CAPSULE DELAYED RELE ASE PARTICLES 313600 DULOXETINE HCL Inactive AZITHROMYCIN 500 MG INTRAVENOUS SOLUTION RECONSTITUTED 1 po q da y AZITHROMYCIN 500 MG INTRAVENOUS SOLUTION RECONSTITUTED 58054 297967 AZITHROMYCIN Inactive CINNAMON ALPHA LIPOIC AC CMPLX CAPSULE by mouth twice a day in AM by mouth twice a day in PM CINNAMON ALPHA LIPOIC AC CMPLX CAPSULE ALPHA LIPOIC [id number] CAPS Inactive MICARDIS HCT 80-12.5 MG ORAL TABLET 1 qd 07/30 MICARDIS HCT 80-12.5 MG ORAL TABLET 796291 TELMISARTAN-HCTZ Inactive PRAVASTATIN SODIUM 20 MG ORAL TABLET 1 tablet by mouth daily at bedtime PRAVASTATIN SODIUM 20 MG ORAL TABLET 464096 PRAVASTATIN SODIUM Inactive FUROSEMIDE 20 MG ORAL TABLET 1 pill by mouth daily if needed for edema FUROSEMIDE 20 MG ORAL TABLET 545535 FUROSEMIDE Inactive METFORMIN HCL 500 MG ORAL TABLET 1 bid METFORMIN HCL 500 MG ORAL TABLET 865342 METFORMIN HCL Inactive B-12 1000 MCG ORAL CAPSULE 1 tab daily B -12 1000 MCG ORAL CAPSULE CYANOCOBALAMIN Inactive VITAMIN E 200 UNIT ORAL CAPSULE 1 cap po qd 1 VITAMIN E 200 UNIT ORAL CAPSULE 2675084 VITAMIN E Inactive [facility] MELATONIN 5-10 MG [...] po daily AZITHROMYCIN 250 MG ORAL TABLET 329792 AZITHROMY BERNADRO Inactive SYMBICORT 160-4.5 MCG/ACT INHALATION AEROSOL 2 puffs BID 9 SYMBICORT 160-4.5 MCG/ACT INHALATION AEROSOL BUDESONIDE-FORM OTEROL FUMARATE Inactive ALBUTEROL SULFATE (2.5 MG/3ML) 0.083% INHALATION NEBUL IZATION SOLUTION one vial per nebulizer every 4-6 hours as needed ALBUTEROL SULFATE (2.5 MG/3ML) 0.083% INHALATION NEBULIZATION SOLUTION 390805 ALBUTER OL SULFATE Inactive NEBULIZER use as directed NEBULIZER NEBULI ZERS Inactive TESSALON PERLES 100 MG ORAL CAPSULE 1 tablet by mouth 3 times da juan pablo TESSALON PERLES 100 MG ORAL CAPSULE 453656 BENZONATATE Inactive CYCLOBENZAPRINE HCL 10 MG ORAL TABLET Take 1 tab TID PRN for mus triston pain CYCLOBENZAPRINE HCL 10 MG ORAL TABLET 998336 CYCLOBENZA ANUJA HCL Inactive AUGMENTIN 875-125 MG ORAL TABLET 1 po BID x 10 days 20 18/04/06 AUGMENTIN 875-125 MG ORAL TABLET 229890 AMOXICILLIN-POT CLAVULANATE Inactive BACTROBAN 2 % EXTERNAL CREAM Apply to affected area BID for up to 10 days BACTROBAN 2 % EXTERNAL CREAM 850237 MUPIROCIN CA LCIUM Inactive VITAMIN D3 96729 UNIT ORAL CAPSULE 1 pill Week x 4 mo nt for vitamin D deficiency/osteoporosis VITAMIN D3 23829 UNIT ORAL CAPSULE CHOLECALCIFEROL Inactive BENZONATATE 200 MG ORAL CAPSULE 1 three times a day as neede d for cough BENZONATATE 200 MG ORAL CAPSULE 418380 BENZONATA TE Inactive ZITHROMAX Z-MARTIN 250 MG ORAL TABLET 2 today and then 1 daily for 4 days ZITHROMAX Z-MARTIN 250 MG ORAL TABLET 837477 AZITHR OMYCIN Inactive ADDERALL 10 MG ORAL TABLET 1 tab twice daily 2 ADDERALL 10 MG ORAL TABLET 569603 AMPHETAMINE-DEXTROAMPHETAMINE Inactive AMOXICILLIN 500 MG ORAL CAPSULE 2 po BID x 10 days 201 07/15/00 AMOXICILLIN 500 MG ORAL CAPSULE 715198 AMOXICILLIN Inactive AZITHROMYCIN 250 MG ORAL TABLET take 2 po today then take 1 po days 2-5 AZITHROMYCIN 250 MG ORAL TABLET 986796 AZITHROMY BERNARDO Inactive LEVAQUIN 500 MG ORAL TABLET 1 pill by mouth daily 2013 LEVAQUIN 500 MG ORAL TABLET 969717 LEVOFLOXACIN Inactive AUGMENTIN 875-125 MG ORAL TABLET 1 pill by mouth twice daily 201 09/10/00 AUGMENTIN 875-125 MG ORAL TABLET 453588 AMOXICILLIN-POT CLAVULANATE Inactive AUGMENTIN 875-125 MG ORAL TABLET 1 po BID x 10 days 20 19/07/13 AUGMENTIN 875-125 MG ORAL TABLET 873851 AMOXICILLIN-POT CLAVULANATE Inactive PREDNISONE 20 MG ORAL TABLET take 3 tabs daily for 3 d ays, 2 tabs daily for 3 days, 1 tab daily for 3 days, 1/2 tab daily for 3 days 08/02 PREDNISONE 20 MG ORAL TABLET 511003 PREDNISONE Inactive CIPRO 500 MG ORAL TABLET 1 tablet by mouth twice daily CIPRO 500 MG ORAL TABLET 358400 CIPROFLOXACIN HCL Inactive Vital Signs Date Name [...] HGBA1C - Chemistry sodium, serum 143 mmol/L 822-064 3473/01/02 carbon dioxide, venous blood 31.7 mmol/L 21.0-32 [...] CBC, Comp. Metabolic Panel, HGBA1C - Hematology mean corpuscular volume, RBC 94 fL 80-97 hematocrit, blood 39.0 % 37.0-47.0 hemoglobin, blood 12.3 g/dL 12.0-16.0 erythrocyte (RBC) count 4.16 10^6/MM^3 10*6/mm3 3.80-5.8 0 leukocyte count, blood 7.7 10^3/MM^3 10*3/mm3 4.6-10.2 mean corpuscular hemoglobin, RBC 29.5 pg 27. 0-31.2 mean corpuscular hemoglobin concentration, RBC 31.5 G/DL % 31.8-35.4 red blood cell distribution width 12.3 % 11 .6-14.8 platelet count 279 10^3/MM^3 10*3/mm3 142-424 Encounters Code Encounter Date Provider Facility CPT-49882 Level 3 Est. Patient 11:40:23 CDT Bertrand marquez [facility]-52043 Level 4 Est. Patient 15:33:35 CRYPTOZOOLOGIST Bertrand marquez [facility]-57878 Level 4 Est. Patient 12:31:54 CDT Bertrand marquez [facility]-46222 Level 3 Est. Patient 11:27:00 CRYPTOZOOLOGIST Ike Deluna MD [facility]-99665 Level 3 Est. Patient 08:50:57 CRYPTOZOOLOGIST Silvia Are ll [facility]-94827 Level 3 Est. Patient 10:04:13 CDT Bertrand marquez [facility]-71360 Level 4 Est. Patient 16:02:10 CRYPTOZOOLOGIST Silvia Are ll [facility]-63181 Level 3 Est. Patient 13:04:54 CRYPTOZOOLOGIST Silvia Are [facility]-21664 Level 3 Est. Patient 12:56:37 CDT Bertrand marquez [facility] CPT-09718 Level 3 Est. Patient 19:12:03 CDT Yoli tolbert MD [facility] CPT-45435 Level 3 Est. Patient 14:36:01 CDT Yoli tolbert MD [facility] CPT-09141 Level 2 Est. Patient 08:00:22 CDT Jcarlos dc MD [facility]-01225 Level 3 Est. Patient 19:06:55 CDT Bertrand marquez [facility] CPT-49975 Level 3 Est. Patient 10:08:23 CRYPTOZOOLOGIST Bertrand marquez [facility] CPT-18936 Level 3 Est. Patient 16:37:54 CRYPTOZOOLOGIST Bertrand marquez [facility] CPT-39530 Level 3 Est. Patient 11:31:59 CRYPTOZOOLOGIST Bertrand marquez [facility] CPT-07800 Level 3 Est. Patient 10:20:08 CDT Adolfo villasenor [facility] CPT-78578 Level 3 Est. Patient 13:45:20 CDT Sanket Josekelvin buckley [facility] CPT-34751 Level 3 Est. Patient 12:51:06 CDT Adolfo villasenor [facility] CPT-22615 Level 3 Est. Patient 11:22:51 CRYPTOZOOLOGIST Yoli tolbert MD PhD [facility] CPT-18134 Level 3 Est. Patient 13:33:19 CDT Bertrand marquez [facility] Procedures Code Procedure Name Date Entry Date Standard Desc ription CPT-90377 Wound Culture - LAB USE ONLY 15:45:25 CDT 2 CPT-88858 Venipuncture Draw Fee 10:23:01 CDT CPT-J0696 Rocephin 1000 mg (Ceftriaxone) 16:20:30 CRYPTOZOOLOGIST CPT-90608 Abx/Therapy Injection 16:20:29 CRYPTOZOOLOGIST CPT-J0696 Rocephin 1gm Inj Solr 15:51:59 CRYPTOZOOLOGIST CPT-49301 Chest 2V Frontal and Lat 15:20:28 CRYPTOZOOLOGIST 07/22 CPT-02015 Breathing Tx 14:51:55 CRYPTOZOOLOGIST CPT-63710 Breathing Tx 09:57:16 CRYPTOZOOLOGIST CPT-08957 Knee comp 4/> V 11:58:06 CRYPTOZOOLOGIST
--- OUTSIDE RECORDS SUMMARY | 2019-11-13 09:59 | XMS REPORT | Clinical Summary ---
Author Author Admin, Enrique Adamson Organization [employer] Address Unknown Phone Unavailable Allergies, Adverse [...] PhD Scabies FH DIABETES V18.0 Inactive Yoli Mercdao MD PhD Family history of diabetes mellitus [...] 09/09/28 EDEMA LEG ICD-782.3 Inactive Adele Feldman FINISH[employer]LLING 201 01/01/02 SHORTNESS OF BREATH ICD-786.05 Inactive Yoli Mercado MD PhD RIB PAIN, RIGHT SIDED ICD-786.50 Inactive Yoli Mercado MD PhD KNEE PAIN, RIGHT ICD-719.46 Inactive Adele chiu [employer] Knee pain, left ICD-719.46 Inactive Adele damico FINISH[employer] ROLLING Pharyngitis-Acute ICD-462 Inactive Bertrand Redmond DO Polyuria ICD-788.42 Inactive Yoli Mercado MD P hD Cellulitis, leg, right ICD-682.6 Inactive Yuki Deluna MD Foreign body, ear ICD-931 Inactive Yoli salazar MD PhD Fatigue ICD-780.79 Inactive Ike Deluna MD 201 12/01/06 Headache ICD-784.0 Inactive Adele Gaston ARTHUR 2017 Cough ICD-786.2 Inactive Adele Feldman FIN[employer] 06/04 SINUSITIS, ACUTE ICD-461.9 Inactive Ike lange MD Fatigue ICD-780.79 Inactive Adele Feldman FIN[employer] 2017 Bronchitis acute with bronchospasm ICD-466.0 I nactive Adele Feldman FINISH[employer] Animal bite ICD-919.8 Inactive Adele Feldman LP N Mycoplasma infection ICD-041.81 Inactive Anit a Feldman FINISH[employer] Amenorrhea, secondary ICD-626.0 Inactive Ani ta Feldman FINISH[employer] Medication List Medication Instructions Start Date Stop Date Generic Name NDC Status Provider Patient Instruction LEVAQUIN 500 MG ORAL TABLET 1 tablet by mouth daily LEVOFLOXACIN 11846648797 Active Bertrand Patel DO Active ADDERALL 10 MG ORAL TABLET 1 tab twice daily 2 AMPHETAMINE-DEXTROAMPHETAMINE 88241739944 No Longer Active Nitza Phi llips Scribe Active ZITHROMAX Z-MARTIN 250 MG ORAL TABLET 2 today and then 1 daily for 4 days AZITHROMYCIN 82174031532 No Longer Active Nitza Osman lips Scribe Active BENZONATATE 200 MG ORAL CAPSULE 1 three times a day as neede d for cough BENZONATATE 70722138529 No Longer Active Nitza Brewer lips Scribe Active VITAMIN D3 62603 UNIT ORAL CAPSULE 1 pill Week x 4 mo nt for vitamin D deficiency/osteoporosis CHOLECALCIFEROL 82989535900 N o Longer Active Layla Garcia Active BACTROBAN 2 % EXTERNAL CREAM Apply to affected area BID for up to 10 days MUPIROCIN CALCIUM 29308871519 No Longer Active Ike Deluna MD Active CIPRO 500 MG ORAL TABLET 1 tablet by mouth twice daily CIPROFLOXACIN HCL 00439001743 No Longer Active Adriana Bender LPN Active AUGMENTIN 875-125 MG ORAL TABLET 1 po BID x 10 days 18/04/06 AMOXICILLIN-POT CLAVULANATE 53387101694 No Longer Active Adriana Bender LPN Active MODAFINIL 200 MG ORAL TABLET Take 1/2 tab po in the am and 1 /2 tab po at noon MODAFINIL 05255819258 Active Adele Feldman LPN Active CYCLOBENZAPRINE HCL 10 MG ORAL TABLET Take 1 tab TID PRN for mus triston pain CYCLOBENZAPRINE HCL 16403377157 No Longer Active Bertrand Patel DO Active TESSALON PERLES 100 MG ORAL CAPSULE 1 tablet by mouth 3 times da juan pablo BENZONATATE 99064362903 No Longer Active Bertrand Patel DO Ac tive NEBULIZER use as directed NEBULIZERS 40015386518 No Longer Active Bertrand Patel DO Active ALBUTEROL SULFATE (2.5 MG/3ML) 0.083% INHALATION NEBUL IZATION SOLUTION one vial per nebulizer every 4-6 hours as needed ALBUTERO L SULFATE 73663722626 No Longer Active Bertrand Patel DO Active SYMBICORT 160-4.5 MCG/ACT INHALATION AEROSOL 2 puffs BID 9 BUDESONIDE-FORMOTEROL FUMARATE 99806447555 No Longer Active Bertrand Patel DO Active PREDNISONE 20 MG ORAL TABLET take 3 tabs daily for 3 d ays, 2 tabs daily for 3 days, 1 tab daily for 3 days, 1/2 tab daily for 3 days 08/02 PREDNISONE 50958085238 No Longer Active Silvia Arell FLORIST Active AZITHROMYCIN 250 MG ORAL TABLET Take 2 tabs po today then 1 tab po daily AZITHROMYCIN 18088875484 No Longer Active Silvia Arell FLORIST Active AUGMENTIN 875-125 MG ORAL TABLET 1 po BID x 10 days 19/07/13 AMOXICILLIN-POT CLAVULANATE 20777510301 No Longer Active Adriana Bender LPN Active CHEWABLE CALCIUM 500-200-40 MG-UNT-MCG ORAL TABLET CHEWABLE 1 chew tab bid CALCIUM-VITAMIN D-VITAMIN K 56583405412 Active Silvia Are ll FLORIST Active EQ COMPLETE MULTIVIT ADULT 50+ ORAL TABLET 1 tab po bid MULTIPLE VITAMINS-MINERALS 22665392420 Active Silvia Arell FLORIST Active HYDROCODONE-ACETAMINOPHEN 7.5-325 MG ORAL TABLET TAKE ONE TAB EVERY 6 HOURS BY MOUTH NEEDED FOR PAIN HYDROCODONE-ACETAMINOPHEN 004 14572243 Active Layla Garcia Active LORTAB 7.5-500 MG ORAL TABLET take one po Q6 hours 201 09/12/01 HYDROCODONE-ACETAMINOPHEN 25382890683 No Longer Active Nirmal Robbins RN Active [facility] MELATONIN 5-10 MG ORAL TABLET EXTENDED RELEASE Jair e one by mouth daily at bedtime MELATONIN-PYRIDOXINE 66195677849 No Longer Acti ve Bertrand Patel DO Active VITAMIN E 200 UNIT ORAL CAPSULE 1 cap po qd VITAM IN E 36621079162 No Longer Active Bertrand Patel DO Active B-12 1000 MCG ORAL CAPSULE 1 tab daily CYANOCOB ALAMIN 99796986935 No Longer Active Bertrand Patel DO Active METFORMIN HCL 500 MG ORAL TABLET 1 bid METFOR MIN HCL 06747167746 No Longer Active Bertrand W Jorge DO Active FUROSEMIDE 20 MG ORAL TABLET 1 pill by mouth daily if needed for edema FUROSEMIDE 42456373320 No Longer Active Bertrand Patel DO Active PRAVASTATIN SODIUM 20 MG ORAL TABLET 1 tablet by mouth daily at bedtime PRAVASTATIN SODIUM 99662551502 No Longer Active Bertrand Patel DO Active AUGMENTIN 875-125 MG ORAL TABLET 1 pill by mouth twice daily 201 09/10/00 AMOXICILLIN-POT CLAVULANATE 96568945295 No Longer Active Yoli Mercado MD PhD Active LEVAQUIN 500 MG ORAL TABLET 1 pill by mouth daily 2013 LEVOFLOXACIN 58009335044 No Longer Active Yoli Mercado MD PhD Acti ve AMLODIPINE BESYLATE 5 MG ORAL TABLET 1 tablet by mouth daily for blood pressure AMLODIPINE BESYLATE 68657941003 Active Bertrand Patel DO Active MICARDIS 80 MG ORAL TABLET 1 tablet daily for blood pressure 07/30 TELMISARTAN 33262915767 Active Bertrand Patel DO Active MICARDIS HCT 80-12.5 MG ORAL TABLET 1 qd TELMISARTAN-HCTZ 97923633846 No Longer Active Bertrand Patel DO Active CINNAMON ALPHA LIPOIC AC CMPLX CAPSULE by mouth twice a day in AM by mouth twice a day in PM ALPHA LIPOIC [id number] CA PS 80245657539 No Longer Active Bertrand Patel DO Active AZITHROMYCIN 500 MG INTRAVENOUS SOLUTION RECONSTITUTED 1 po q da y AZITHROMYCIN 02773030259 No Longer Active Bertrand Patel DO A ctive CYMBALTA 30 MG ORAL CAPSULE DELAYED RELEASE PARTICLES 1 cap by mouth daily DULOXETINE HCL 87046589696 No Longer Active Bertrand marquez DO Active CYMBALTA 60 MG ORAL CAPSULE DELAYED RELEASE PARTICLES 1 cap by mouth daily DULOXETINE HCL 78758829900 Active Bertrand Patel DO Active WELLBUTRIN 75 MG ORAL TABLET 2 times daily BUPR OPION HCL 37127697483 No Longer Active Bertrand Patel DO Active PROAIR HFA 108 (90 Base) MCG/ACT INHALATION AEROSOL SO LUTION take one to two puffs po Q4-6 hour prn cough and shortness of breath ALBUTEROL SULFATE 41188556067 Active Silvia Vazquez APRN Active AZITHROMYCIN 250 MG ORAL TABLET take 2 po today then take 1 po days 2-5 AZITHROMYCIN 81315502912 No Longer Active Adolfo traore PA Active PERMETHRIN 5 % EXTERNAL CREAM apply neck to toes tonig ht and then rinse off in morning. repeat at 7 days PERMETHRIN 09674598258 No Longer Active Adolfo OSORIO Active AMOXICILLIN 500 MG ORAL CAPSULE 2 po BID x 10 days 201 07/15/00 AMOXICILLIN 62451162103 No Longer Active Yoli Mercado MD PhD Acti ve ALPRAZOLAM 0.5 MG ORAL TABLET 1 tab by mouth tid ALPRAZOLAM 75086718434 Active Bertrand Patel DO Active INSUPEN ULTRAFIN 31G X 6 MM USE DIRECTED INSULIN PEN NEEDLE 99426262414 No Longer Active Bertrand Patel DO Active TRANSDERM-SCOP (1.5 MG) 1 MG/3DAYS TRANSDERMAL PATCH 7 2 HOUR 1 patch applied behind ear q 3 day SCOPOLAMINE BASE 68676772365 No Lo nger Active Bertarnd Patel DO Active MACRODANTIN 100 MG ORAL CAPSULE one p.o. b.i.d. x2 weeks NITROFURANTOIN MACROCRYSTAL 04149340023 No Longer Active Bertrand Patel DO Active MACRODANTIN 100 MG ORAL CAPSULE one p.o. b.i.d. x2 weeks MACRODANTIN 100 MG ORAL CAPSULE 8510917 NITROFURANTOIN MACROCRYSTAL Inactive TRANSDERM-SCOP (1.5 MG) 1 [...] days PERMETHRIN 5 % EXTER NAL CREAM 034756 PERMETHRIN Inactive WELLBUTRIN 75 MG ORAL TABLET 2 times daily WELLBUTRIN 75 MG ORAL TABLET BUPROPION HCL Inactive CYMBALTA 30 MG ORAL CAPSULE DELAYED RELEASE PARTICLES 1 cap by mouth daily CYMBALTA 30 MG ORAL CAPSULE DELAYED RELE ASE PARTICLES 324893 DULOXETINE HCL Inactive AZITHROMYCIN 500 MG INTRAVENOUS SOLUTION RECONSTITUTED 1 po q da y AZITHROMYCIN 500 MG INTRAVENOUS SOLUTION RECONSTITUTED 16414 432760 AZITHROMYCIN Inactive CINNAMON ALPHA LIPOIC AC CMPLX CAPSULE by mouth twice a day in AM by mouth twice a day in PM CINNAMON ALPHA LIPOIC AC CMPLX CAPSULE ALPHA LIPOIC [id number] CAPS Inactive MICARDIS HCT 80-12.5 MG ORAL TABLET 1 qd 07/30 MICARDIS HCT 80-12.5 MG ORAL TABLET 982438 TELMISARTAN-HCTZ Inactive PRAVASTATIN SODIUM 20 MG ORAL TABLET 1 tablet by mouth daily at bedtime PRAVASTATIN SODIUM 20 MG ORAL TABLET 461185 PRAVASTATIN SODIUM Inactive FUROSEMIDE 20 MG ORAL TABLET 1 pill by mouth daily if needed for edema FUROSEMIDE 20 MG ORAL TABLET 759963 FUROSEMIDE Inactive METFORMIN HCL 500 MG ORAL TABLET 1 bid METFORMIN HCL 500 MG ORAL TABLET 031339 METFORMIN HCL Inactive B-12 1000 MCG ORAL CAPSULE 1 tab daily B -12 1000 MCG ORAL CAPSULE CYANOCOBALAMIN Inactive VITAMIN E 200 UNIT ORAL CAPSULE 1 cap po qd 1 VITAMIN E 200 UNIT ORAL CAPSULE 3239237 VITAMIN E Inactive [facility] MELATONIN 5-10 MG [...] po daily AZITHROMYCIN 250 MG ORAL TABLET 123204 AZITHROMY BERNARDO Inactive SYMBICORT 160-4.5 MCG/ACT INHALATION AEROSOL 2 puffs BID 9 SYMBICORT 160-4.5 MCG/ACT INHALATION AEROSOL BUDESONIDE-FORM OTEROL FUMARATE Inactive ALBUTEROL SULFATE (2.5 MG/3ML) 0.083% INHALATION NEBUL IZATION SOLUTION one vial per nebulizer every 4-6 hours as needed ALBUTEROL SULFATE (2.5 MG/3ML) 0.083% INHALATION NEBULIZATION SOLUTION 703790 ALBUTER OL SULFATE Inactive NEBULIZER use as directed NEBULIZER NEBULI ZERS Inactive TESSALON PERLES 100 MG ORAL CAPSULE 1 tablet by mouth 3 times da juan pablo TESSALON PERLES 100 MG ORAL CAPSULE 992460 BENZONATATE Inactive CYCLOBENZAPRINE HCL 10 MG ORAL TABLET Take 1 tab TID PRN for mus triston pain CYCLOBENZAPRINE HCL 10 MG ORAL TABLET 400153 CYCLOBENZA ANUJA HCL Inactive AUGMENTIN 875-125 MG ORAL TABLET 1 po BID x 10 days 20 18/04/06 AUGMENTIN 875-125 MG ORAL TABLET 402346 AMOXICILLIN-POT CLAVULANATE Inactive BACTROBAN 2 % EXTERNAL CREAM Apply to affected area BID for up to 10 days BACTROBAN 2 % EXTERNAL CREAM 223184 MUPIROCIN CA LCIUM Inactive VITAMIN D3 55777 UNIT ORAL CAPSULE 1 pill Week x 4 mo nt for vitamin D deficiency/osteoporosis VITAMIN D3 61780 UNIT ORAL CAPSULE CHOLECALCIFEROL Inactive BENZONATATE 200 MG ORAL CAPSULE 1 three times a day as neede d for cough BENZONATATE 200 MG ORAL CAPSULE 366481 BENZONATA TE Inactive ZITHROMAX Z-MARTIN 250 MG ORAL TABLET 2 today and then 1 daily for 4 days ZITHROMAX Z-MARTIN 250 MG ORAL TABLET 019242 AZITHR OMYCIN Inactive ADDERALL 10 MG ORAL TABLET 1 tab twice daily 2 ADDERALL 10 MG ORAL TABLET 238871 AMPHETAMINE-DEXTROAMPHETAMINE Inactive AMOXICILLIN 500 MG ORAL CAPSULE 2 po BID x 10 days 201 07/15/00 AMOXICILLIN 500 MG ORAL CAPSULE 704572 AMOXICILLIN Inactive AZITHROMYCIN 250 MG ORAL TABLET take 2 po today then take 1 po days 2-5 AZITHROMYCIN 250 MG ORAL TABLET 646620 AZITHROMY BERNARDO Inactive LEVAQUIN 500 MG ORAL TABLET 1 pill by mouth daily 2013 LEVAQUIN 500 MG ORAL TABLET 863438 LEVOFLOXACIN Inactive AUGMENTIN 875-125 MG ORAL TABLET 1 pill by mouth twice daily 201 09/10/00 AUGMENTIN 875-125 MG ORAL TABLET 794515 AMOXICILLIN-POT CLAVULANATE Inactive AUGMENTIN 875-125 MG ORAL TABLET 1 po BID x 10 days 20 19/07/13 AUGMENTIN 875-125 MG ORAL TABLET 043721 AMOXICILLIN-POT CLAVULANATE Inactive PREDNISONE 20 MG ORAL TABLET take 3 tabs daily for 3 d ays, 2 tabs daily for 3 days, 1 tab daily for 3 days, 1/2 tab daily for 3 days 08/02 PREDNISONE 20 MG ORAL TABLET 551238 PREDNISONE Inactive CIPRO 500 MG ORAL TABLET 1 tablet by mouth twice daily CIPRO 500 MG ORAL TABLET 039134 CIPROFLOXACIN HCL Inactive Vital Signs Date Name [...] HGBA1C - Chemistry sodium, serum 143 mmol/L 539-800 7010/01/02 carbon dioxide, venous blood 31.7 mmol/L 21.0-32 [...] 142-424 Encounters Code Encounter Date Provider Facility CPT-71134 Level 3 Est. Patient 11:40:23 CDT Bertrand marquez [facility]-27566 Level 4 Est. Patient 15:33:35 PEDIATRIC LICENSED PRACTICAL NURSE Bertrand marquez [facility]-92699 Level 4 Est. Patient 12:31:54 CDT Bertrand marquez [facility]-51048 Level 3 Est. Patient 11:27:00 PEDIATRIC LICENSED PRACTICAL NURSE Ike Deluna MD [facility]-97517 Level 3 Est. Patient 08:50:57 PEDIATRIC LICENSED PRACTICAL NURSE Silvia Are ll [facility]-83477 Level 3 Est. Patient 10:04:13 CDT Bertrand marquez [facility]-05405 Level 4 Est. Patient 16:02:10 PEDIATRIC LICENSED PRACTICAL NURSE Silvia Are ll [facility]-51765 Level 3 Est. Patient 13:04:54 PEDIATRIC LICENSED PRACTICAL NURSE Silvia Are [facility]-58271 Level 3 Est. Patient 12:56:37 CDT Bertrand marquez [facility] CPT-97516 Level 3 Est. Patient 19:12:03 CDT Yoli tolbert MD [facility] CPT-89115 Level 3 Est. Patient 14:36:01 CDT Yoli tolbert MD [facility] CPT-82643 Level 2 Est. Patient 08:00:22 CDT Jcarlos dc MD [facility]-60681 Level 3 Est. Patient 19:06:55 CDT Bertrand marquez [facility] CPT-71520 Level 3 Est. Patient 10:08:23 PEDIATRIC LICENSED PRACTICAL NURSE Bertrand marquez [facility] CPT-99851 Level 3 Est. Patient 16:37:54 PEDIATRIC LICENSED PRACTICAL NURSE Bertrand marquez [facility] CPT-76483 Level 3 Est. Patient 11:31:59 PEDIATRIC LICENSED PRACTICAL NURSE Bertrand marquez [facility] CPT-25731 Level 3 Est. Patient 10:20:08 CDT Adolfo villasenor [facility] CPT-10614 Level 3 Est. Patient 13:45:20 CDT Sanket Josekelvin buckley [facility] CPT-50688 Level 3 Est. Patient 12:51:06 CDT Adolfo villasenor [facility] CPT-37639 Level 3 Est. Patient 11:22:51 PEDIATRIC LICENSED PRACTICAL NURSE Yoli tolbert MD PhD [facility] CPT-63691 Level 3 Est. Patient 13:33:19 CDT Bertrand marquez [facility] Procedures Code Procedure Name Date Entry Date Standard Desc ription CPT-58396 Wound Culture - LAB USE ONLY 15:45:25 CDT 2 CPT-91073 Venipuncture Draw Fee 10:23:01 CDT CPT-J0696 Rocephin 1000 mg (Ceftriaxone) 16:20:30 PEDIATRIC LICENSED PRACTICAL NURSE CPT-13381 Abx/Therapy Injection 16:20:29 PEDIATRIC LICENSED PRACTICAL NURSE CPT-J0696 Rocephin 1gm Inj Solr 15:51:59 PEDIATRIC LICENSED PRACTICAL NURSE CPT-55860 Chest 2V Frontal and Lat 15:20:28 PEDIATRIC LICENSED PRACTICAL NURSE 07/22 CPT-47127 Breathing Tx 14:51:55 PEDIATRIC LICENSED PRACTICAL NURSE CPT-18763 Breathing Tx 09:57:16 PEDIATRIC LICENSED PRACTICAL NURSE CPT-28569 Knee comp 4/> V 11:58:06 PEDIATRIC LICENSED PRACTICAL NURSE
--- OUTSIDE RECORDS SUMMARY | 2019-11-13 09:59 | XMS REPORT | Clinical Summary ---
[...] foot Foreign body, ear 931 Resolved Yoli Mrecado MD PhD Foreign body in ear Obstructive [...] 09/09/28 EDEMA LEG ICD-782.3 Inactive Adele Feldman LINE MECH[employer]IC 201 01/01/02 SHORTNESS OF BREATH ICD-786.05 Inactive Yoli Mercado MD PhD RIB PAIN, RIGHT SIDED ICD-786.50 Inactive Yoli Mercado MD PhD KNEE PAIN, RIGHT ICD-719.46 Inactive Adele chiu LINE MECHANIC Knee pain, left ICD-719.46 Inactive Adele damico LINE MECHANIC Pharyngitis-Acute ICD-462 Inactive Bertrand Redmond DO Polyuria ICD-788.42 Inactive Yoli Mercado MD P hD Cellulitis, leg, right ICD-682.6 Inactive Yuki Deluna MD Foreign body, ear ICD-931 Inactive Yoli salazar MD PhD Fatigue ICD-780.79 Inactive Ike Deluna MD 201 12/01/06 Headache ICD-784.0 Inactive Adele Feldman LINE MECHANIC 2017 Cough ICD-786.2 Inactive Adele Feldman LINE MECHANIC 06/04 SINUSITIS, ACUTE ICD-461.9 Inactive Ike lange MD Fatigue ICD-780.79 Inactive Adele Feldman LINE MECHANIC 2017 Bronchitis acute with bronchospasm ICD-466.0 I nactive Adele Feldman LINE MECHANIC Animal bite ICD-919.8 Inactive Adele Feldman LP N Mycoplasma infection ICD-041.81 Inactive Anit a Feldman LINE MECHANIC Amenorrhea, secondary ICD-626.0 Inactive Ani ta Feldman LINE MECHANIC Medication List Medication Instructions Start Date Stop Date Generic Name NDC Status Provider Patient Instruction LEVAQUIN 500 MG ORAL TABLET 1 tablet by mouth daily LEVOFLOXACIN 70693051769 Active Bertrand Patel DO Active ADDERALL 10 MG ORAL TABLET 1 tab twice daily 2 AMPHETAMINE-DEXTROAMPHETAMINE 22032263576 No Longer Active Nitza Phi llips Scribe Active ZITHROMAX Z-MARTIN 250 MG ORAL TABLET 2 today and then 1 daily for 4 days AZITHROMYCIN 32766124316 No Longer Active Nitza Osman lips Scribe Active BENZONATATE 200 MG ORAL CAPSULE 1 three times a day as neede d for cough BENZONATATE 17229102292 No Longer Active Nitza Brewer lips Scribe Active VITAMIN D3 81822 UNIT ORAL CAPSULE 1 pill Week x 4 mo [facility] vitamin D deficiency/osteoporosis CHOLECALCIFEROL 04471383759 N o Longer Active Layla Garcia Active BACTROBAN 2 % EXTERNAL CREAM Apply to affected area BID for up to 10 days MUPIROCIN CALCIUM 97151971046 No Longer Active Ike Deluna MD Active CIPRO 500 MG ORAL TABLET 1 tablet by mouth twice daily CIPROFLOXACIN HCL 46605601013 No Longer Active Adriana Bender LPN Active AUGMENTIN 875-125 MG ORAL TABLET 1 po BID x 10 days 18/04/06 AMOXICILLIN-POT CLAVULANATE 78155560004 No Longer Active Adriana Bender LPN Active MODAFINIL 200 MG ORAL TABLET Take 1/2 tab po in the am and 1 /2 tab po at noon MODAFINIL 62455355525 Active Adele Feldman LPN Active CYCLOBENZAPRINE HCL 10 MG ORAL TABLET Take 1 tab TID PRN for mus triston pain CYCLOBENZAPRINE HCL 59390331150 No Longer Active Bertrand Patel DO Active TESSALON PERLES 100 MG ORAL CAPSULE 1 tablet by mouth 3 times da juan pablo BENZONATATE 72669813722 No Longer Active Bertrand Patel DO Ac tive NEBULIZER use as directed NEBULIZERS 01654040898 No Longer Active Bertrand Patel DO Active ALBUTEROL SULFATE (2.5 MG/3ML) 0.083% INHALATION NEBUL IZATION SOLUTION one vial per nebulizer every 4-6 hours as needed ALBUTERO L SULFATE 85928986756 No Longer Active Bertrand Patel DO Active SYMBICORT 160-4.5 MCG/ACT INHALATION AEROSOL 2 puffs BID 9 BUDESONIDE-FORMOTEROL FUMARATE 46996452400 No Longer Active Bertrand Patel DO Active PREDNISONE 20 MG ORAL TABLET take 3 tabs daily for 3 d ays, 2 tabs daily for 3 days, 1 tab daily for 3 days, 1/2 tab daily for 3 days 08/02 PREDNISONE 70205577183 No Longer Active Silvia Arell [employer]MER 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 Active AZITHROMYCIN 250 MG ORAL TABLET Take 2 tabs po today then 1 tab po daily AZITHROMYCIN 26264611967 No Longer Active Silvia Arell [employer]MER 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 Active AUGMENTIN 875-125 MG ORAL TABLET 1 po BID x 10 days 19/07/13 AMOXICILLIN-POT CLAVULANATE 43460442028 No Longer Active Adriana Bender LPN Active CHEWABLE CALCIUM 500-200-40 MG-UNT-MCG ORAL TABLET CHEWABLE 1 chew tab bid CALCIUM-VITAMIN D-VITAMIN K 03336083892 Active Silvia Are ll [employer]MER 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 Active EQ COMPLETE MULTIVIT ADULT 50+ ORAL TABLET 1 tab po bid MULTIPLE VITAMINS-MINERALS 28834573392 Active Silvia Arell [employer] FORMER 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 Active HYDROCODONE-ACETAMINOPHEN 7.5-325 MG ORAL TABLET TAKE ONE TAB EVERY 6 HOURS BY MOUTH NEEDED FOR PAIN HYDROCODONE-ACETAMINOPHEN 004 11267102 Active Layla Garcia Active LORTAB 7.5-500 MG ORAL TABLET take one po Q6 hours 201 09/12/01 HYDROCODONE-ACETAMINOPHEN 07268690265 No Longer Active Nirmal Robbins RN Active [facility] MELATONIN 5-10 MG ORAL TABLET EXTENDED RELEASE Jair e one by mouth daily at bedtime MELATONIN-PYRIDOXINE 77770910610 No Longer Acti ve Bertrand Patel DO Active VITAMIN E 200 UNIT ORAL CAPSULE 1 cap po qd VITAM IN E 34522798849 No Longer Active Bertrand Patel DO Active B-12 1000 MCG ORAL CAPSULE 1 tab daily CYANOCOB ALAMIN 10460247871 No Longer Active Bertrand Patel DO Active METFORMIN HCL 500 MG ORAL TABLET 1 bid METFOR MIN HCL 97891066318 No Longer Active Bertrand W Jorge DO Active FUROSEMIDE 20 MG ORAL TABLET 1 pill by mouth daily if needed for edema FUROSEMIDE 74633575309 No Longer Active Bertrand Patel DO Active PRAVASTATIN SODIUM 20 MG ORAL TABLET 1 tablet by mouth daily at bedtime PRAVASTATIN SODIUM 61135258044 No Longer Active Bertrand Patel DO Active AUGMENTIN 875-125 MG ORAL TABLET 1 pill by mouth twice daily 201 09/10/00 AMOXICILLIN-POT CLAVULANATE 86783793299 No Longer Active Yoli Mercado MD PhD Active LEVAQUIN 500 MG ORAL TABLET 1 pill by mouth daily 2013 LEVOFLOXACIN 48208041223 No Longer Active Yoli Mercado MD PhD Acti ve AMLODIPINE BESYLATE 5 MG ORAL TABLET 1 tablet by mouth daily for blood pressure AMLODIPINE BESYLATE 98938205674 Active Bertrand Patel DO Active MICARDIS 80 MG ORAL TABLET 1 tablet daily for blood pressure 07/30 TELMISARTAN 33650346557 Active Bertrand Patel DO Active MICARDIS HCT 80-12.5 MG ORAL TABLET 1 qd TELMISARTAN-HCTZ 10438411096 No Longer Active Bertrand Patel DO Active CINNAMON ALPHA LIPOIC AC CMPLX CAPSULE by mouth twice a day in AM by mouth twice a day in PM ALPHA LIPOIC [id number] CA PS 61509623676 No Longer Active Bertrand Patel DO Active AZITHROMYCIN 500 MG INTRAVENOUS SOLUTION RECONSTITUTED 1 po q da y AZITHROMYCIN 08759514630 No Longer Active Bertrand Patel DO A ctive CYMBALTA 30 MG ORAL CAPSULE DELAYED RELEASE PARTICLES 1 cap by mouth daily DULOXETINE HCL 30181105631 No Longer Active Bertrand marquez DO Active CYMBALTA 60 MG ORAL CAPSULE DELAYED RELEASE PARTICLES 1 cap by mouth daily DULOXETINE HCL 77007561008 Active Bertrand Patel DO Active WELLBUTRIN 75 MG ORAL TABLET 2 times daily BUPR OPION HCL 68022637848 No Longer Active Bertrand Patel DO Active PROAIR HFA 108 (90 Base) MCG/ACT INHALATION AEROSOL SO LUTION take one to two puffs po Q4-6 hour prn cough and shortness of breath ALBUTEROL SULFATE 05155974226 Active Silvia Vazquez APRN Active AZITHROMYCIN 250 MG ORAL TABLET take 2 po today then take 1 po days 2-5 AZITHROMYCIN 74006317748 No Longer Active Adolfo traore PA Active PERMETHRIN 5 % EXTERNAL CREAM apply neck to toes tonig ht and then rinse off in morning. repeat at 7 days PERMETHRIN 88034350915 No Longer Active Adolfo OSORIO Active AMOXICILLIN 500 MG ORAL CAPSULE 2 po BID x 10 days 201 07/15/00 AMOXICILLIN 62932330804 No Longer Active Yoli Mercado MD PhD Acti ve ALPRAZOLAM 0.5 MG ORAL TABLET 1 tab by mouth tid ALPRAZOLAM 66788400552 Active Bertrand Patel DO Active INSUPEN ULTRAFIN 31G X 6 MM USE DIRECTED INSULIN PEN NEEDLE 68493648771 No Longer Active Bertrand Patel DO Active TRANSDERM-SCOP (1.5 MG) 1 MG/3DAYS TRANSDERMAL PATCH 7 2 HOUR 1 patch applied behind ear q 3 day SCOPOLAMINE BASE 67554339189 No Lo nger Active Bertrand Patel DO Active MACRODANTIN 100 MG ORAL CAPSULE one p.o. b.i.d. x2 weeks NITROFURANTOIN MACROCRYSTAL 38012036102 No Longer Active Bertrand Patel DO Active MACRODANTIN 100 MG ORAL CAPSULE one p.o. b.i.d. x2 weeks MACRODANTIN 100 MG ORAL CAPSULE 0090805 NITROFURANTOIN MACROCRYSTAL Inactive TRANSDERM-SCOP (1.5 MG) 1 [...] days PERMETHRIN 5 % EXTER NAL CREAM 543721 PERMETHRIN Inactive WELLBUTRIN 75 MG ORAL TABLET 2 times daily WELLBUTRIN 75 MG ORAL TABLET BUPROPION HCL Inactive CYMBALTA 30 MG ORAL CAPSULE DELAYED RELEASE PARTICLES 1 cap by mouth daily CYMBALTA 30 MG ORAL CAPSULE DELAYED RELE ASE PARTICLES 466878 DULOXETINE HCL Inactive AZITHROMYCIN 500 MG INTRAVENOUS SOLUTION RECONSTITUTED 1 po q da y AZITHROMYCIN 500 MG INTRAVENOUS SOLUTION RECONSTITUTED 36720 507641 AZITHROMYCIN Inactive CINNAMON ALPHA LIPOIC AC CMPLX CAPSULE by mouth twice a day in AM by mouth twice a day in PM CINNAMON ALPHA LIPOIC AC CMPLX CAPSULE ALPHA LIPOIC [id number] CAPS Inactive MICARDIS HCT 80-12.5 MG ORAL TABLET 1 qd 07/30 MICARDIS HCT 80-12.5 MG ORAL TABLET 360752 TELMISARTAN-HCTZ Inactive PRAVASTATIN SODIUM 20 MG ORAL TABLET 1 tablet by mouth daily at bedtime PRAVASTATIN SODIUM 20 MG ORAL TABLET 980484 PRAVASTATIN SODIUM Inactive FUROSEMIDE 20 MG ORAL TABLET 1 pill by mouth daily if needed for edema FUROSEMIDE 20 MG ORAL TABLET 633534 FUROSEMIDE Inactive METFORMIN HCL 500 MG ORAL TABLET 1 bid METFORMIN HCL 500 MG ORAL TABLET 520362 METFORMIN HCL Inactive B-12 1000 MCG ORAL CAPSULE 1 tab daily B -12 1000 MCG ORAL CAPSULE CYANOCOBALAMIN Inactive VITAMIN E 200 UNIT ORAL CAPSULE 1 cap po qd 1 VITAMIN E 200 UNIT ORAL CAPSULE 5267025 VITAMIN E Inactive [facility] MELATONIN 5-10 MG [...] po daily AZITHROMYCIN 250 MG ORAL TABLET 904354 AZITHROMY BERNARDO Inactive SYMBICORT 160-4.5 MCG/ACT INHALATION AEROSOL 2 puffs BID 9 SYMBICORT 160-4.5 MCG/ACT INHALATION AEROSOL BUDESONIDE-FORM OTEROL FUMARATE Inactive ALBUTEROL SULFATE (2.5 MG/3ML) 0.083% INHALATION NEBUL IZATION SOLUTION one vial per nebulizer every 4-6 hours as needed ALBUTEROL SULFATE (2.5 MG/3ML) 0.083% INHALATION NEBULIZATION SOLUTION 129939 ALBUTER OL SULFATE Inactive NEBULIZER use as directed NEBULIZER NEBULI ZERS Inactive TESSALON PERLES 100 MG ORAL CAPSULE 1 tablet by mouth 3 times da juan pablo TESSALON PERLES 100 MG ORAL CAPSULE 199489 BENZONATATE Inactive CYCLOBENZAPRINE HCL 10 MG ORAL TABLET Take 1 tab TID PRN for mus triston pain CYCLOBENZAPRINE HCL 10 MG ORAL TABLET 705222 CYCLOBENZA ANJUA HCL Inactive AUGMENTIN 875-125 MG ORAL TABLET 1 po BID x 10 days 20 18/04/06 AUGMENTIN 875-125 MG ORAL TABLET 732525 AMOXICILLIN-POT CLAVULANATE Inactive BACTROBAN 2 % EXTERNAL CREAM Apply to affected area BID for up to 10 days BACTROBAN 2 % EXTERNAL CREAM 312378 MUPIROCIN CA LCIUM Inactive VITAMIN D3 73942 UNIT ORAL CAPSULE 1 pill Week x 4 mo nt for vitamin D deficiency/osteoporosis VITAMIN D3 69983 UNIT ORAL CAPSULE CHOLECALCIFEROL Inactive BENZONATATE 200 MG ORAL CAPSULE 1 three times a day as neede d for cough BENZONATATE 200 MG ORAL CAPSULE 283262 BENZONATA TE Inactive ZITHROMAX Z-MARTIN 250 MG ORAL TABLET 2 today and then 1 daily for 4 days ZITHROMAX Z-MARTIN 250 MG ORAL TABLET 465836 AZITHR OMYCIN Inactive ADDERALL 10 MG ORAL TABLET 1 tab twice daily 2 ADDERALL 10 MG ORAL TABLET 770161 AMPHETAMINE-DEXTROAMPHETAMINE Inactive AMOXICILLIN 500 MG ORAL CAPSULE 2 po BID x 10 days 201 07/15/00 AMOXICILLIN 500 MG ORAL CAPSULE 656952 AMOXICILLIN Inactive AZITHROMYCIN 250 MG ORAL TABLET take 2 po today then take 1 po days 2-5 AZITHROMYCIN 250 MG ORAL TABLET 946254 AZITHROMY BERNARDO Inactive LEVAQUIN 500 MG ORAL TABLET 1 pill by mouth daily 2013 LEVAQUIN 500 MG ORAL TABLET 111241 LEVOFLOXACIN Inactive AUGMENTIN 875-125 MG ORAL TABLET 1 pill by mouth twice daily 201 09/10/00 AUGMENTIN 875-125 MG ORAL TABLET 030068 AMOXICILLIN-POT CLAVULANATE Inactive AUGMENTIN 875-125 MG ORAL TABLET 1 po BID x 10 days 20 19/07/13 AUGMENTIN 875-125 MG ORAL TABLET 152598 AMOXICILLIN-POT CLAVULANATE Inactive PREDNISONE 20 MG ORAL TABLET take 3 tabs daily for 3 d ays, 2 tabs daily for 3 days, 1 tab daily for 3 days, 1/2 tab daily for 3 days 08/02 PREDNISONE 20 MG ORAL TABLET 792994 PREDNISONE Inactive CIPRO 500 MG ORAL TABLET 1 tablet by mouth twice daily CIPRO 500 MG ORAL TABLET 115187 CIPROFLOXACIN HCL Inactive Vital Signs Date Name [...] HGBA1C - Chemistry sodium, serum 143 mmol/L 751-527 8522/01/02 carbon dioxide, venous blood 31.7 mmol/L 21.0-32 [...] 142-424 Encounters Code Encounter Date Provider Facility CPT-51569 Level 3 Est. Patient 11:40:23 CDT Bertrand marquez [facility]-13858 Level 4 Est. Patient 15:33:35 DRAWER IN HAND Bertrand marquez [facility]-45705 Level 4 Est. Patient 12:31:54 CDT Bertrand marquez [facility]-69472 Level 3 Est. Patient 11:27:00 DRAWER IN HAND Ike Deluna MD [facility]-77288 Level 3 Est. Patient 08:50:57 DRAWER IN HAND Silvia Are ll [facility]-03759 Level 3 Est. Patient 10:04:13 CDT Bertrand marquez [facility]-78189 Level 4 Est. Patient 16:02:10 DRAWER IN HAND Silvia Are ll [facility]-26051 Level 3 Est. Patient 13:04:54 DRAWER IN HAND Silvia Are [facility]-84758 Level 3 Est. Patient 12:56:37 CDT Bertrand marquez [facility] CPT-54584 Level 3 Est. Patient 19:12:03 CDT Yoli tolbert MD [facility] CPT-09931 Level 3 Est. Patient 14:36:01 CDT Yoli tolbert MD [facility] CPT-08928 Level 2 Est. Patient 08:00:22 CDT Jcarlos dc MD [facility]-59424 Level 3 Est. Patient 19:06:55 CDT Bertrand marquez [facility] CPT-33019 Level 3 Est. Patient 10:08:23 DRAWER IN HAND Bertrand marquez [facility] CPT-98205 Level 3 Est. Patient 16:37:54 DRAWER IN HAND Bertrand marquez [facility] CPT-72157 Level 3 Est. Patient 11:31:59 DRAWER IN HAND Bertrand marquez [facility] CPT-18737 Level 3 Est. Patient 10:20:08 CDT Adolfo villasenor [facility] CPT-03229 Level 3 Est. Patient 13:45:20 CDT Sanket Josekelvin buckley [facility] CPT-55892 Level 3 Est. Patient 12:51:06 CDT Adolfo villasenor [facility] CPT-01338 Level 3 Est. Patient 11:22:51 DRAWER IN HAND Yoli tolbert MD PhD [facility] CPT-40183 Level 3 Est. Patient 13:33:19 CDT Bertrand marquez [facility] Procedures Code Procedure Name Date Entry Date Standard Desc ription CPT-97400 Wound Culture - LAB USE ONLY 15:45:25 CDT 2 CPT-07954 Venipuncture Draw Fee 10:23:01 CDT CPT-J0696 Rocephin 1000 mg (Ceftriaxone) 16:20:30 DRAWER IN HAND CPT-79196 Abx/Therapy Injection 16:20:29 DRAWER IN HAND CPT-J0696 Rocephin 1gm Inj Solr 15:51:59 DRAWER IN HAND CPT-55625 Chest 2V Frontal and Lat 15:20:28 DRAWER IN HAND 07/22 CPT-28508 Breathing Tx 14:51:55 DRAWER IN HAND CPT-25433 Breathing Tx 09:57:16 DRAWER IN HAND CPT-01420 Knee comp 4/> V 11:58:06 DRAWER IN HAND
--- OUTSIDE RECORDS SUMMARY | 2019-11-13 10:00 | XMS REPORT | Clinical Summary ---
Author Author Admin, Enrique Adamson Organization [facility] Address Unknown Phone Unavailable Allergies, Adverse Reactions, [...] 09/09/28 EDEMA LEG ICD-782.3 Inactive Adele Feldman [employer]USS DESIGNER 201 01/01/02 SHORTNESS OF BREATH ICD-786.05 Inactive Yoli Mercado MD PhD RIB PAIN, RIGHT SIDED ICD-786.50 Inactive Yoli Mercado MD PhD KNEE PAIN, RIGHT ICD-719.46 Inactive Adele chiu [employer]USS DES[employer] Knee pain, left ICD-719.46 Inactive Adele damico [employer]USS DESIGNER Pharyngitis-Acute ICD-462 Inactive Bertrand Redmond DO Polyuria ICD-788.42 Inactive Yoli Mercado MD P hD Cellulitis, leg, right ICD-682.6 Inactive Yuki Deluna MD Foreign body, ear ICD-931 Inactive Yoli salazar MD PhD Fatigue ICD-780.79 Inactive Ike Deluna MD 201 12/01/06 Headache ICD-784.0 Inactive Adele Gaston ARTHUR 2017 Cough ICD-786.2 Inactive Adele Feldman TRUSS DESIGNER 06/04 SINUSITIS, ACUTE ICD-461.9 Inactive Ike lange MD Fatigue ICD-780.79 Inactive Adele Feldman TRUSS DESIGNER 2017 Bronchitis acute with bronchospasm ICD-466.0 I nactive Adele Feldman [employer]USS DESIGNER Animal bite ICD-919.8 Inactive Adele Feldman LP N Mycoplasma infection ICD-041.81 Inactive Anit a Feldman TRUSS DESIGNER Amenorrhea, secondary ICD-626.0 Inactive Ani ta Feldman TRUSS DESIGNER Medication List Medication Instructions Start Date Stop Date Generic Name NDC Status Provider Patient Instruction LEVAQUIN 500 MG ORAL TABLET 1 tablet by mouth daily LEVOFLOXACIN 86166765502 Active Bertrand Patel DO Active ADDERALL 10 MG ORAL TABLET 1 tab twice daily 2 AMPHETAMINE-DEXTROAMPHETAMINE 32987383608 No Longer Active Nitza Phi llips Scribe Active ZITHROMAX Z-MARTIN 250 MG ORAL TABLET 2 today and then 1 daily for 4 days AZITHROMYCIN 54593365534 No Longer Active Nitza Osman lips Scribe Active BENZONATATE 200 MG ORAL CAPSULE 1 three times a day as neede d for cough BENZONATATE 27934936213 No Longer Active Nitza Brewer lips Scribe Active VITAMIN D3 28846 UNIT ORAL CAPSULE 1 pill Week x 4 mo nt for vitamin D deficiency/osteoporosis CHOLECALCIFEROL 49459649849 N o Longer Active Layla Garcia Active BACTROBAN 2 % EXTERNAL CREAM Apply to affected area BID for up to 10 days MUPIROCIN CALCIUM 48906254526 No Longer Active Ike Deluna MD Active CIPRO 500 MG ORAL TABLET 1 tablet by mouth twice daily CIPROFLOXACIN HCL 51575382688 No Longer Active Adriana Bender LPN Active AUGMENTIN 875-125 MG ORAL TABLET 1 po BID x 10 days 18/04/06 AMOXICILLIN-POT CLAVULANATE 01267550613 No Longer Active Adriana Bender LPN Active MODAFINIL 200 MG ORAL TABLET Take 1/2 tab po in the am and 1 /2 tab po at noon MODAFINIL 53794192743 Active Adele Feldman LPN Active CYCLOBENZAPRINE HCL 10 MG ORAL TABLET Take 1 tab TID PRN for mus triston pain CYCLOBENZAPRINE HCL 75884500793 No Longer Active Bertrand Patel DO Active TESSALON PERLES 100 MG ORAL CAPSULE 1 tablet by mouth 3 times da juan pablo BENZONATATE 10164910404 No Longer Active Bertrand Patel DO Ac tive NEBULIZER use as directed NEBULIZERS 30577532771 No Longer Active Betrrand Patel DO Active ALBUTEROL SULFATE (2.5 MG/3ML) 0.083% INHALATION NEBUL IZATION SOLUTION one vial per nebulizer every 4-6 hours as needed ALBUTERO L SULFATE 44725689334 No Longer Active Bertrand Patel DO Active SYMBICORT 160-4.5 MCG/ACT INHALATION AEROSOL 2 puffs BID 9 BUDESONIDE-FORMOTEROL FUMARATE 55663679559 No Longer Active Bertrand Patel DO Active PREDNISONE 20 MG ORAL TABLET take 3 tabs daily for 3 d ays, 2 tabs daily for 3 days, 1 tab daily for 3 days, 1/2 tab daily for 3 days 08/02 PREDNISONE 42279533532 No Longer Active Silvia Arell [employer] Active AZITHROMYCIN 250 MG ORAL TABLET Take 2 tabs po today then 1 tab po daily AZITHROMYCIN 96031190462 No Longer Active Silvia Arell [employer] Active AUGMENTIN 875-125 MG ORAL TABLET 1 po BID x 10 days 19/07/13 AMOXICILLIN-POT CLAVULANATE 99125577880 No Longer Active Adriana Bender LPN Active CHEWABLE CALCIUM 500-200-40 MG-UNT-MCG ORAL TABLET CHEWABLE 1 chew tab bid CALCIUM-VITAMIN D-VITAMIN K 41009551209 Active Silvia Are ll [employer] Active EQ COMPLETE MULTIVIT ADULT 50+ ORAL TABLET 1 tab po bid MULTIPLE VITAMINS-MINERALS 82616195763 Active Silvia Arell [employer] Active HYDROCODONE-ACETAMINOPHEN 7.5-325 MG ORAL TABLET TAKE ONE TAB EVERY 6 HOURS BY MOUTH NEEDED FOR PAIN HYDROCODONE-ACETAMINOPHEN 004 57385210 Active Bertrand Patel DO Active LORTAB 7.5-500 MG ORAL TABLET take one po Q6 hours 201 09/12/01 HYDROCODONE-ACETAMINOPHEN 20010463561 No Longer Active Nirmal Robbins RN Active [facility] MELATONIN 5-10 MG ORAL TABLET EXTENDED RELEASE Jair e one by mouth daily at bedtime MELATONIN-PYRIDOXINE 49796598599 No Longer Acti ve Bertrand Patel DO Active VITAMIN E 200 UNIT ORAL CAPSULE 1 cap po qd VITAM IN E 94937580735 No Longer Active Bertrand Patel DO Active B-12 1000 MCG ORAL CAPSULE 1 tab daily CYANOCOB ALAMIN 66956408281 No Longer Active Bertrand Patel DO Active METFORMIN HCL 500 MG ORAL TABLET 1 bid METFOR MIN HCL 30389751581 No Longer Active Bertrand W Jorge DO Active FUROSEMIDE 20 MG ORAL TABLET 1 pill by mouth daily if needed for edema FUROSEMIDE 97538404600 No Longer Active Bertrand Patel DO Active PRAVASTATIN SODIUM 20 MG ORAL TABLET 1 tablet by mouth daily at bedtime PRAVASTATIN SODIUM 83219373197 No Longer Active Bertrand Patel DO Active AUGMENTIN 875-125 MG ORAL TABLET 1 pill by mouth twice daily 201 09/10/00 AMOXICILLIN-POT CLAVULANATE 50640504907 No Longer Active Yoli Mercado MD PhD Active LEVAQUIN 500 MG ORAL TABLET 1 pill by mouth daily 2013 LEVOFLOXACIN 47987906275 No Longer Active Yoli Mercado MD PhD Acti ve AMLODIPINE BESYLATE 5 MG ORAL TABLET 1 tablet by mouth daily for blood pressure AMLODIPINE BESYLATE 28465079897 Active Bertrand Patel DO Active MICARDIS 80 MG ORAL TABLET 1 tablet daily for blood pressure 07/30 TELMISARTAN 84171586642 Active Bertrand Patel DO Active MICARDIS HCT 80-12.5 MG ORAL TABLET 1 qd TELMISARTAN-HCTZ 13797193911 No Longer Active Bertrand Patel DO Active CINNAMON ALPHA LIPOIC AC CMPLX CAPSULE by mouth twice a day in AM by mouth twice a day in PM ALPHA LIPOIC [id number] CA PS 27362239002 No Longer Active Bertrand Patel DO Active AZITHROMYCIN 500 MG INTRAVENOUS SOLUTION RECONSTITUTED 1 po q da y AZITHROMYCIN 93409036072 No Longer Active Bertrand Patel DO A ctive CYMBALTA 30 MG ORAL CAPSULE DELAYED RELEASE PARTICLES 1 cap by mouth daily DULOXETINE HCL 11027650747 No Longer Active Bertrand marquez DO Active CYMBALTA 60 MG ORAL CAPSULE DELAYED RELEASE PARTICLES 1 cap by mouth daily DULOXETINE HCL 94909051812 Active Bertrand Patel DO Active WELLBUTRIN 75 MG ORAL TABLET 2 times daily BUPR OPION HCL 76030581021 No Longer Active Bertrand Patel DO Active PROAIR HFA 108 (90 Base) MCG/ACT INHALATION AEROSOL SO LUTION take one to two puffs po Q4-6 hour prn cough and shortness of breath ALBUTEROL SULFATE 02143738880 Active Silvia Vazquez APRN Active AZITHROMYCIN 250 MG ORAL TABLET take 2 po today then take 1 po days 2-5 AZITHROMYCIN 03037242093 No Longer Active Adolfo traore PA Active PERMETHRIN 5 % EXTERNAL CREAM apply neck to toes tonig ht and then rinse off in morning. repeat at 7 days PERMETHRIN 83780823922 No Longer Active Adolfo OSORIO Active AMOXICILLIN 500 MG ORAL CAPSULE 2 po BID x 10 days 201 07/15/00 AMOXICILLIN 98471121492 No Longer Active Yoli Mercado MD PhD Acti ve ALPRAZOLAM 0.5 MG ORAL TABLET 1 tab by mouth tid ALPRAZOLAM 53950082616 Active Bertrand Patel DO Active INSUPEN ULTRAFIN 31G X 6 MM USE DIRECTED INSULIN PEN NEEDLE 17177622376 No Longer Active Bertrand Patel DO Active TRANSDERM-SCOP (1.5 MG) 1 MG/3DAYS TRANSDERMAL PATCH 7 2 HOUR 1 patch applied behind ear q 3 day SCOPOLAMINE BASE 86314524622 No Lo nger Active Bertrand Patel DO Active MACRODANTIN 100 MG ORAL CAPSULE one p.o. b.i.d. x2 weeks NITROFURANTOIN MACROCRYSTAL 66300193070 No Longer Active Bertrand Patel DO Active MACRODANTIN 100 MG ORAL CAPSULE one p.o. b.i.d. x2 weeks MACRODANTIN 100 MG ORAL CAPSULE 5838101 NITROFURANTOIN MACROCRYSTAL Inactive TRANSDERM-SCOP (1.5 MG) 1 [...] days PERMETHRIN 5 % EXTER NAL CREAM 205747 PERMETHRIN Inactive WELLBUTRIN 75 MG ORAL TABLET 2 times daily WELLBUTRIN 75 MG ORAL TABLET BUPROPION HCL Inactive CYMBALTA 30 MG ORAL CAPSULE DELAYED RELEASE PARTICLES 1 cap by mouth daily CYMBALTA 30 MG ORAL CAPSULE DELAYED RELE ASE PARTICLES 681984 DULOXETINE HCL Inactive AZITHROMYCIN 500 MG INTRAVENOUS SOLUTION RECONSTITUTED 1 po q da y AZITHROMYCIN 500 MG INTRAVENOUS SOLUTION RECONSTITUTED 85119 270327 AZITHROMYCIN Inactive CINNAMON ALPHA LIPOIC AC CMPLX CAPSULE by mouth twice a day in AM by mouth twice a day in PM CINNAMON ALPHA LIPOIC AC CMPLX CAPSULE ALPHA LIPOIC [id number]-MT-[id number] CAPS Inactive MICARDIS HCT 80-12.5 MG ORAL TABLET 1 qd 07/30 MICARDIS HCT 80-12.5 MG ORAL TABLET 242607 TELMISARTAN-HCTZ Inactive PRAVASTATIN SODIUM 20 MG ORAL TABLET 1 tablet by mouth daily at bedtime PRAVASTATIN SODIUM 20 MG ORAL TABLET 240566 PRAVASTATIN SODIUM Inactive FUROSEMIDE 20 MG ORAL TABLET 1 pill by mouth daily if needed for edema FUROSEMIDE 20 MG ORAL TABLET 049155 FUROSEMIDE Inactive METFORMIN HCL 500 MG ORAL TABLET 1 bid METFORMIN HCL 500 MG ORAL TABLET 652419 METFORMIN HCL Inactive B-12 1000 MCG ORAL CAPSULE 1 tab daily B -12 1000 MCG ORAL CAPSULE CYANOCOBALAMIN Inactive VITAMIN E 200 UNIT ORAL CAPSULE 1 cap po qd 1 VITAMIN E 200 UNIT ORAL CAPSULE 3400070 VITAMIN E Inactive [facility] MELATONIN 5-10 MG [...] po daily AZITHROMYCIN 250 MG ORAL TABLET 505583 AZITHROMY BERNARDO Inactive SYMBICORT 160-4.5 MCG/ACT INHALATION AEROSOL 2 puffs BID 9 SYMBICORT 160-4.5 MCG/ACT INHALATION AEROSOL BUDESONIDE-FORM OTEROL FUMARATE Inactive ALBUTEROL SULFATE (2.5 MG/3ML) 0.083% INHALATION NEBUL IZATION SOLUTION one vial per nebulizer every 4-6 hours as needed ALBUTEROL SULFATE (2.5 MG/3ML) 0.083% INHALATION NEBULIZATION SOLUTION 685056 ALBUTER OL SULFATE Inactive NEBULIZER use as directed NEBULIZER NEBULI ZERS Inactive TESSALON PERLES 100 MG ORAL CAPSULE 1 tablet by mouth 3 times da juan pablo TESSALON PERLES 100 MG ORAL CAPSULE 707508 BENZONATATE Inactive CYCLOBENZAPRINE HCL 10 MG ORAL TABLET Take 1 tab TID PRN for mus triston pain CYCLOBENZAPRINE HCL 10 MG ORAL TABLET 134208 CYCLOBENZA ANUJA HCL Inactive AUGMENTIN 875-125 MG ORAL TABLET 1 po BID x 10 days 20 18/04/06 AUGMENTIN 875-125 MG ORAL TABLET 581657 AMOXICILLIN-POT CLAVULANATE Inactive BACTROBAN 2 % EXTERNAL CREAM Apply to affected area BID for up to 10 days BACTROBAN 2 % EXTERNAL CREAM 168180 MUPIROCIN CA LCIUM Inactive VITAMIN D3 67010 UNIT ORAL CAPSULE 1 pill Week x 4 mo nt for vitamin D deficiency/osteoporosis VITAMIN D3 94257 UNIT ORAL CAPSULE CHOLECALCIFEROL Inactive BENZONATATE 200 MG ORAL CAPSULE 1 three times a day as neede d for cough BENZONATATE 200 MG ORAL CAPSULE 438333 BENZONATA TE Inactive ZITHROMAX Z-MARTIN 250 MG ORAL TABLET 2 today and then 1 daily for 4 days ZITHROMAX Z-MARTIN 250 MG ORAL TABLET 441510 AZITHR OMYCIN Inactive ADDERALL 10 MG ORAL TABLET 1 tab twice daily 2 ADDERALL 10 MG ORAL TABLET 460436 AMPHETAMINE-DEXTROAMPHETAMINE Inactive AMOXICILLIN 500 MG ORAL CAPSULE 2 po BID x 10 days 201 07/15/00 AMOXICILLIN 500 MG ORAL CAPSULE 726426 AMOXICILLIN Inactive AZITHROMYCIN 250 MG ORAL TABLET take 2 po today then take 1 po days 2-5 AZITHROMYCIN 250 MG ORAL TABLET 719718 AZITHROMY BERNARDO Inactive LEVAQUIN 500 MG ORAL TABLET 1 pill by mouth daily 2013 LEVAQUIN 500 MG ORAL TABLET 496285 LEVOFLOXACIN Inactive AUGMENTIN 875-125 MG ORAL TABLET 1 pill by mouth twice daily 201 09/10/00 AUGMENTIN 875-125 MG ORAL TABLET 987301 AMOXICILLIN-POT CLAVULANATE Inactive AUGMENTIN 875-125 MG ORAL TABLET 1 po BID x 10 days 20 19/07/13 AUGMENTIN 875-125 MG ORAL TABLET 089085 AMOXICILLIN-POT CLAVULANATE Inactive PREDNISONE 20 MG ORAL TABLET take 3 tabs daily for 3 d ays, 2 tabs daily for 3 days, 1 tab daily for 3 days, 1/2 tab daily for 3 days 08/02 PREDNISONE 20 MG ORAL TABLET 644996 PREDNISONE Inactive CIPRO 500 MG ORAL TABLET 1 tablet by mouth twice daily CIPRO 500 MG ORAL TABLET 933173 CIPROFLOXACIN HCL Inactive Vital Signs Date Name [...] HGBA1C - Chemistry sodium, serum 143 mmol/L 245-738 3998/01/02 carbon dioxide, venous blood 31.7 mmol/L 21.0-32 [...] .6-14.8 platelet count 279 10^3/MM^3 10*3/mm3 142-424 Lab Report: MICROALB/CREAT W/RATIO - Delores balaji albumin/creatinine ratio, urine <30 mg/g Normal mg/g m g/g{creat} 0-29 Lab Report: MICROALB/CREAT W/RATIO - Lab microalbumin, urine 10 mg/L 0-19 Encounters Code Encounter Date Provider Facility CPT-15848 Level 3 Est. Patient 11:40:23 CDT Bertrand marquez [facility] CPT-47051 Level 4 Est. Patient 15:33:35 ENDOCRINOLOGY SPECIALIST Bertrand marquez [facility] CPT-95817 Level 4 Est. Patient 12:31:54 CDT Bertrand marquez [facility] CPT-15920 Level 3 Est. Patient 11:27:00 ENDOCRINOLOGY SPECIALIST Ike Deluna MD [facility] CPT-31589 Level 3 Est. Patient 08:50:57 ENDOCRINOLOGY SPECIALIST Silvia Are ll [facility] CPT-35646 Level 3 Est. Patient 10:04:13 CDT Bertrand marquez [facility] CPT-03698 Level 4 Est. Patient 16:02:10 ENDOCRINOLOGY SPECIALIST Silvia Are ll [facility] CPT-06298 Level 3 Est. Patient 13:04:54 ENDOCRINOLOGY SPECIALIST Silvia Are ll [facility] CPT-95043 Level 3 Est. Patient 12:56:37 CDT Bertrand marquez [facility] CPT-74611 Level 3 Est. Patient 19:12:03 CDT Yoli tolbert MD PhD [facility] CPT-02435 Level 3 Est. Patient 14:36:01 CDT Yoli tolbert MD PhD [facility] CPT-00558 Level 2 Est. Patient 08:00:22 CDT Jcarlos dc MD [facility] CPT-13679 Level 3 Est. Patient 19:06:55 CDT Bertrand marquez [facility] CPT-48269 Level 3 Est. Patient 10:08:23 ENDOCRINOLOGY SPECIALIST Bertrand marquez [facility] CPT-55517 Level 3 Est. Patient 16:37:54 ENDOCRINOLOGY SPECIALIST Bertrand marquez [facility] CPT-59830 Level 3 Est. Patient 11:31:59 ENDOCRINOLOGY SPECIALIST Bertrand marquez [facility] CPT-58171 Level 3 Est. Patient 10:20:08 CDT Adolfo villasenor [facility] CPT-92965 Level 3 Est. Patient 13:45:20 CDT Sanket buckley [facility] CPT-15858 Level 3 Est. Patient 12:51:06 CDT Adolfo villasenor [facility] CPT-86749 Level 3 Est. Patient 11:22:51 ENDOCRINOLOGY SPECIALIST Yoli tolbert MD PhD [facility] CPT-22365 Level 3 Est. Patient 13:33:19 CDT Bertrand marquez [facility] Procedures Code Procedure Name Date Entry Date Standard Desc ription CPT-92637 Wound Culture - LAB USE ONLY 15:45:25 CDT 2 CPT-98332 Venipuncture Draw Fee 10:23:01 CDT CPT-J0696 Rocephin 1000 mg (Ceftriaxone) 16:20:30 ENDOCRINOLOGY SPECIALIST CPT-85950 Abx/Therapy Injection 16:20:29 ENDOCRINOLOGY SPECIALIST CPT-J0696 Rocephin 1gm Inj Solr 15:51:59 ENDOCRINOLOGY SPECIALIST CPT-13005 Chest 2V Frontal and Lat 15:20:28 ENDOCRINOLOGY SPECIALIST 07/22 CPT-76016 Breathing Tx 14:51:55 ENDOCRINOLOGY SPECIALIST CPT-02053 Breathing Tx 09:57:16 ENDOCRINOLOGY SPECIALIST CPT-54464 Knee comp 4/> V 11:58:06 ENDOCRINOLOGY SPECIALIST
--- OUTSIDE RECORDS SUMMARY | 2019-11-13 10:00 | XMS REPORT | Clinical Summary ---
Author Author Admin, Enrique Adamson Organization [facility] Address Unknown Phone Unavailable Allergies, Adverse [...] Knee pain, left ICD-719.46 Inactive Adele damico MAPPER Pharyngitis-Acute ICD-462 Inactive Bertrand Redmond DO Polyuria ICD-788.42 Inactive Yoli Mercado MD P hD EDEMA LEG ICD-782.3 Inactive Adele Feldman MAPPER 201 01/01/02 Foreign body, ear ICD-931 Inactive Yoli salazar MD PhD KNEE PAIN, RIGHT ICD-719.46 Inactive Adele Vau ghn MAPPER Headache ICD-784.0 Inactive Adele Feldman MAPPER 2017 Cough ICD-786.2 Inactive Adele Feldman MAPPER 06/04 SINUSITIS, ACUTE ICD-461.9 Inactive Ike lange MD Fatigue ICD-780.79 Inactive Adele Feldman MAPPER 2017 Bronchitis acute with bronchospasm ICD-466.0 I nactive Adele Feldman MAPPER Animal bite ICD-919.8 Inactive Adele Feldman LP N Mycoplasma infection ICD-041.81 Inactive Anit a Feldman MAPPER Amenorrhea, secondary ICD-626.0 Inactive Ani ta Feldman MAPPER Cellulitis, leg, right ICD-682.6 Inactive Yuki Deluna MD Fatigue ICD-780.79 Inactive Ike Deluna MD 201 12/01/06 Medication List Medication Instructions Start Date Stop Date Generic Name NDC Status Provider Patient Instruction LEVAQUIN 500 MG ORAL TABLET 1 tablet by mouth daily LEVOFLOXACIN 84190772759 Active Bertrand Patel DO Active ADDERALL 10 MG ORAL TABLET 1 tab twice daily 2 AMPHETAMINE-DEXTROAMPHETAMINE 51875688948 No Longer Active Nitza Phi llips Scribe Active ZITHROMAX Z-MARTIN 250 MG ORAL TABLET 2 today and then 1 daily for 4 days AZITHROMYCIN 05261801360 No Longer Active Nitza Osman lips Scribe Active BENZONATATE 200 MG ORAL CAPSULE 1 three times a day as neede d for cough BENZONATATE 84686660994 No Longer Active Nitza Brewer lips Scribe Active VITAMIN D3 67637 UNIT ORAL CAPSULE 1 pill Week x 4 mo [facility] for vitamin D deficiency/osteoporosis CHOLECALCIFEROL 25703360361 N o Longer Active Layla Garcia Active BACTROBAN 2 % EXTERNAL CREAM Apply to affected area BID for up to 10 days MUPIROCIN CALCIUM 47892817867 No Longer Active Ike Deluna MD Active CIPRO 500 MG ORAL TABLET 1 tablet by mouth twice daily CIPROFLOXACIN HCL 40965224466 No Longer Active Adriana Bender LPN Active AUGMENTIN 875-125 MG ORAL TABLET 1 po BID x 10 days 18/04/06 AMOXICILLIN-POT CLAVULANATE 78253015508 No Longer Active Adriana Bender LPN Active MODAFINIL 200 MG ORAL TABLET Take 1/2 tab po in the am and 1 /2 tab po at noon MODAFINIL 81585986257 Active Adele Feldman LPN Active CYCLOBENZAPRINE HCL 10 MG ORAL TABLET Take 1 tab TID PRN for mus triston pain CYCLOBENZAPRINE HCL 34647761451 No Longer Active Bertrand Patel DO Active TESSALON PERLES 100 MG ORAL CAPSULE 1 tablet by mouth 3 times da juan pablo BENZONATATE 86069340378 No Longer Active Bertrand Patel DO Ac tive NEBULIZER use as directed NEBULIZERS 82273643410 No Longer Active Bertrand Patel DO Active ALBUTEROL SULFATE (2.5 MG/3ML) 0.083% INHALATION NEBUL IZATION SOLUTION one vial per nebulizer every 4-6 hours as needed ALBUTERO L SULFATE 94593257877 No Longer Active Bertrand Patel DO Active SYMBICORT 160-4.5 MCG/ACT INHALATION AEROSOL 2 puffs BID 9 BUDESONIDE-FORMOTEROL FUMARATE 11511149918 No Longer Active Bertrand Patel DO Active PREDNISONE 20 MG ORAL TABLET take 3 tabs daily for 3 d ays, 2 tabs daily for 3 days, 1 tab daily for 3 days, 1/2 tab daily for 3 days 08/02 PREDNISONE 35656527472 No Longer Active Silvia Arell FNPS Active AZITHROMYCIN 250 MG ORAL TABLET Take 2 tabs po today then 1 tab po daily AZITHROMYCIN 25097919924 No Longer Active Silvia Arell FNPS Active AUGMENTIN 875-125 MG ORAL TABLET 1 po BID x 10 days 19/07/13 AMOXICILLIN-POT CLAVULANATE 86406135036 No Longer Active Adriana Bender LPN Active CHEWABLE CALCIUM 500-200-40 MG-UNT-MCG ORAL TABLET CHEWABLE 1 chew tab bid CALCIUM-VITAMIN D-VITAMIN K 57349286172 Active Silvia Are ll FNPS Active EQ COMPLETE MULTIVIT ADULT 50+ ORAL TABLET 1 tab po bid MULTIPLE VITAMINS-MINERALS 68662697065 Active Silvia Arell FNPS Active HYDROCODONE-ACETAMINOPHEN 7.5-325 MG ORAL TABLET TAKE ONE TAB EVERY 6 HOURS BY MOUTH NEEDED FOR PAIN HYDROCODONE-ACETAMINOPHEN 004 35433493 Active Bertrand Patel DO Active LORTAB 7.5-500 MG ORAL TABLET take one po Q6 hours 201 09/12/01 HYDROCODONE-ACETAMINOPHEN 28203797406 No Longer Active Nirmal Robbins RN Active [facility] MELATONIN 5-10 MG ORAL TABLET EXTENDED RELEASE Jair e one by mouth daily at bedtime MELATONIN-PYRIDOXINE 62119559788 No Longer Acti ve Bertrand Patel DO Active VITAMIN E 200 UNIT ORAL CAPSULE 1 cap po qd VITAM IN E 41059154760 No Longer Active Bertrand Patel DO Active B-12 1000 MCG ORAL CAPSULE 1 tab daily CYANOCOB ALAMIN 88492888170 No Longer Active Bertrand Patel DO Active METFORMIN HCL 500 MG ORAL TABLET 1 bid METFOR MIN HCL 22309499019 No Longer Active Bertrand W Jorge DO Active FUROSEMIDE 20 MG ORAL TABLET 1 pill by mouth daily if needed for edema FUROSEMIDE 93461508044 No Longer Active Bertrand Patel DO Active PRAVASTATIN SODIUM 20 MG ORAL TABLET 1 tablet by mouth daily at bedtime PRAVASTATIN SODIUM 87071177246 No Longer Active Bertrand Patel DO Active AUGMENTIN 875-125 MG ORAL TABLET 1 pill by mouth twice daily 201 09/10/00 AMOXICILLIN-POT CLAVULANATE 54975671735 No Longer Active Yoli Mercado MD PhD Active LEVAQUIN 500 MG ORAL TABLET 1 pill by mouth daily 2013 LEVOFLOXACIN 82761613320 No Longer Active Yoli Mercado MD PhD Acti ve AMLODIPINE BESYLATE 5 MG ORAL TABLET 1 tablet by mouth daily for blood pressure AMLODIPINE BESYLATE 81372999340 Active Bertrand Patel DO Active MICARDIS 80 MG ORAL TABLET 1 tablet daily for blood pressure 07/30 TELMISARTAN 90454055050 Active Bertrand Patel DO Active MICARDIS HCT 80-12.5 MG ORAL TABLET 1 qd TELMISARTAN-HCTZ 87946426588 No Longer Active Bertrand Patel DO Active CINNAMON ALPHA LIPOIC AC CMPLX CAPSULE by mouth twice a day in AM by mouth twice a day in PM ALPHA LIPOIC LIUS-QA-RUFNYALW CA PS 04650584598 No Longer Active Bertrand Patel DO Active AZITHROMYCIN 500 MG INTRAVENOUS SOLUTION RECONSTITUTED 1 po q da y AZITHROMYCIN 10542626994 No Longer Active Bertrand Patel DO A ctive CYMBALTA 30 MG ORAL CAPSULE DELAYED RELEASE PARTICLES 1 cap by mouth daily DULOXETINE HCL 97994518538 No Longer Active Bertrand marquez DO Active CYMBALTA 60 MG ORAL CAPSULE DELAYED RELEASE PARTICLES 1 cap by mouth daily DULOXETINE HCL 76493355665 Active Bertrand Patel DO Active WELLBUTRIN 75 MG ORAL TABLET 2 times daily BUPR OPION HCL 73280151172 No Longer Active Bertrand Patel DO Active PROAIR HFA 108 (90 Base) MCG/ACT INHALATION AEROSOL SO LUTION take one to two puffs po Q4-6 hour prn cough and shortness of breath ALBUTEROL SULFATE 11642460506 Active Silvia Vazquez APRN Active AZITHROMYCIN 250 MG ORAL TABLET take 2 po today then take 1 po days 2-5 AZITHROMYCIN 60368022441 No Longer Active Adolfo OSORIO Active PERMETHRIN 5 % EXTERNAL CREAM apply neck to toes tonig ht and then rinse off in morning. repeat at 7 days PERMETHRIN 42467059874 No Longer Active Adolfo OSORIO Active AMOXICILLIN 500 MG ORAL CAPSULE 2 po BID x 10 days 201 07/15/00 AMOXICILLIN 12934985517 No Longer Active Yoli Mercado MD PhD Acti ve ALPRAZOLAM 0.5 MG ORAL TABLET 1 tab by mouth tid ALPRAZOLAM 61864264519 Active Bertrand Patel DO Active INSUPEN ULTRAFIN 31G X 6 MM USE DIRECTED INSULIN PEN NEEDLE 39496103404 No Longer Active Bertrand Patel DO Active TRANSDERM-SCOP (1.5 MG) 1 MG/3DAYS TRANSDERMAL PATCH 7 2 HOUR 1 patch applied behind ear q 3 day SCOPOLAMINE BASE 60588100965 No Lo nger Active Bertrand Patel DO Active MACRODANTIN 100 MG ORAL CAPSULE one p.o. b.i.d. x2 weeks NITROFURANTOIN MACROCRYSTAL 69025026959 No Longer Active Bertrand Patel DO Active MACRODANTIN 100 MG ORAL CAPSULE one p.o. b.i.d. x2 weeks MACRODANTIN 100 MG ORAL CAPSULE 0123261 NITROFURANTOIN MACROCRYSTAL Inactive TRANSDERM-SCOP (1.5 MG) 1 [...] days PERMETHRIN 5 % EXTER NAL CREAM 165661 PERMETHRIN Inactive WELLBUTRIN 75 MG ORAL TABLET 2 times daily WELLBUTRIN 75 MG ORAL TABLET BUPROPION HCL Inactive CYMBALTA 30 MG ORAL CAPSULE DELAYED RELEASE PARTICLES 1 cap by mouth daily CYMBALTA 30 MG ORAL CAPSULE DELAYED RELE ASE PARTICLES 443573 DULOXETINE HCL Inactive AZITHROMYCIN 500 MG INTRAVENOUS SOLUTION RECONSTITUTED 1 po q da y AZITHROMYCIN 500 MG INTRAVENOUS SOLUTION RECONSTITUTED 53362 419092 AZITHROMYCIN Inactive CINNAMON ALPHA LIPOIC AC CMPLX CAPSULE by mouth twice a day in AM by mouth twice a day in PM CINNAMON ALPHA LIPOIC AC CMPLX CAPSULE ALPHA LIPOIC [id number] CAPS Inactive MICARDIS HCT 80-12.5 MG ORAL TABLET 1 qd 07/30 MICARDIS HCT 80-12.5 MG ORAL TABLET 616066 TELMISARTAN-HCTZ Inactive PRAVASTATIN SODIUM 20 MG ORAL TABLET 1 tablet by mouth daily at bedtime PRAVASTATIN SODIUM 20 MG ORAL TABLET 048007 PRAVASTATIN SODIUM Inactive FUROSEMIDE 20 MG ORAL TABLET 1 pill by mouth daily if needed for edema FUROSEMIDE 20 MG ORAL TABLET 524992 FUROSEMIDE Inactive METFORMIN HCL 500 MG ORAL TABLET 1 bid METFORMIN HCL 500 MG ORAL TABLET 362326 METFORMIN HCL Inactive B-12 1000 MCG ORAL CAPSULE 1 tab daily B -12 1000 MCG ORAL CAPSULE CYANOCOBALAMIN Inactive VITAMIN E 200 UNIT ORAL CAPSULE 1 cap po qd 1 VITAMIN E 200 UNIT ORAL CAPSULE 4724676 VITAMIN E Inactive [facility] MELATONIN 5-10 MG [...] po daily AZITHROMYCIN 250 MG ORAL TABLET 654380 AZITHROMY BERNARDO Inactive SYMBICORT 160-4.5 MCG/ACT INHALATION AEROSOL 2 puffs BID 9 SYMBICORT 160-4.5 MCG/ACT INHALATION AEROSOL BUDESONIDE-FORM OTEROL FUMARATE Inactive ALBUTEROL SULFATE (2.5 MG/3ML) 0.083% INHALATION NEBUL IZATION SOLUTION one vial per nebulizer every 4-6 hours as needed ALBUTEROL SULFATE (2.5 MG/3ML) 0.083% INHALATION NEBULIZATION SOLUTION 241448 ALBUTER OL SULFATE Inactive NEBULIZER use as directed NEBULIZER NEBULI ZERS Inactive TESSALON PERLES 100 MG ORAL CAPSULE 1 tablet by mouth 3 times da juan pablo TESSALON PERLES 100 MG ORAL CAPSULE 350672 BENZONATATE Inactive CYCLOBENZAPRINE HCL 10 MG ORAL TABLET Take 1 tab TID PRN for mus triston pain CYCLOBENZAPRINE HCL 10 MG ORAL TABLET 163041 CYCLOBENZA ANUJA HCL Inactive AUGMENTIN 875-125 MG ORAL TABLET 1 po BID x 10 days 20 18/04/06 AUGMENTIN 875-125 MG ORAL TABLET 920730 AMOXICILLIN-POT CLAVULANATE Inactive BACTROBAN 2 % EXTERNAL CREAM Apply to affected area BID for up to 10 days BACTROBAN 2 % EXTERNAL CREAM 611175 MUPIROCIN CA LCIUM Inactive VITAMIN D3 23418 UNIT ORAL CAPSULE 1 pill Week x 4 mo nths for vitamin D deficiency/osteoporosis VITAMIN D3 03633 UNIT ORAL CAPSULE CHOLECALCIFEROL Inactive BENZONATATE 200 MG ORAL CAPSULE 1 three times a day as neede d for cough BENZONATATE 200 MG ORAL CAPSULE 437933 BENZONATA TE Inactive ZITHROMAX Z-MARTIN 250 MG ORAL TABLET 2 today and then 1 daily for 4 days ZITHROMAX Z-MARTIN 250 MG ORAL TABLET 944093 AZITHR OMYCIN Inactive ADDERALL 10 MG ORAL TABLET 1 tab twice daily 2 ADDERALL 10 MG ORAL TABLET 267928 AMPHETAMINE-DEXTROAMPHETAMINE Inactive AMOXICILLIN 500 MG ORAL CAPSULE 2 po BID x 10 days 201 07/15/00 AMOXICILLIN 500 MG ORAL CAPSULE 185955 AMOXICILLIN Inactive AZITHROMYCIN 250 MG ORAL TABLET take 2 po today then take 1 po days 2-5 AZITHROMYCIN 250 MG ORAL TABLET 452295 AZITHROMY BERNARDO Inactive LEVAQUIN 500 MG ORAL TABLET 1 pill by mouth daily 2013 LEVAQUIN 500 MG ORAL TABLET 824045 LEVOFLOXACIN Inactive AUGMENTIN 875-125 MG ORAL TABLET 1 pill by mouth twice daily 201 09/10/00 AUGMENTIN 875-125 MG ORAL TABLET 304098 AMOXICILLIN-POT CLAVULANATE Inactive AUGMENTIN 875-125 MG ORAL TABLET 1 po BID x 10 days 20 19/07/13 AUGMENTIN 875-125 MG ORAL TABLET 534391 AMOXICILLIN-POT CLAVULANATE Inactive PREDNISONE 20 MG ORAL TABLET take 3 tabs daily for 3 d ays, 2 tabs daily for 3 days, 1 tab daily for 3 days, 1/2 tab daily for 3 days 08/02 PREDNISONE 20 MG ORAL TABLET 414678 PREDNISONE Inactive CIPRO 500 MG ORAL TABLET 1 tablet by mouth twice daily CIPRO 500 MG ORAL TABLET 746301 CIPROFLOXACIN HCL Inactive Vital Signs Date Name [...] HGBA1C - Chemistry sodium, serum 143 mmol/L 115-884 0837/01/02 carbon dioxide, venous blood 31.7 mmol/L 21.0-32 [...] CBC, Comp. Metabolic Panel, HGBA1C - Hematology hematocrit, blood 39.0 % 37.0-47.0 hemoglobin, blood 12.3 g/dL 12.0-16.0 erythrocyte (RBC) count 4.16 10^6/MM^3 10*6/mm3 3.80-5.8 0 leukocyte count, blood 7.7 10^3/MM^3 10*3/mm3 4.6-10.2 mean corpuscular volume, RBC 94 fL 80-97 [...] 0-19 Encounters Code Encounter Date Provider Facility CPT-59927 Level 3 Est. Patient 11:40:23 CDT Bertrand marquez [facility] CPT-96023 Level 4 Est. Patient 15:33:35 METAL TESTER Bertrand marquez [facility] CPT-74733 Level 4 Est. Patient 12:31:54 CDT Bertrand marquez [facility] CPT-42751 Level 3 Est. Patient 11:27:00 METAL TESTER Ike Deluna MD [facility] CPT-39804 Level 3 Est. Patient 08:50:57 METAL TESTER Silvia Are ll [facility] CPT-75086 Level 3 Est. Patient 10:04:13 CDT Bertrand marquez [facility] CPT-29566 Level 4 Est. Patient 16:02:10 METAL TESTER Silvia Are ll [facility]-22292 Level 3 Est. Patient 13:04:54 METAL TESTER Silvia Are ll [facility] CPT-18702 Level 3 Est. Patient 12:56:37 CDT Bertrand [facility] CPT-05059 Level 3 Est. Patient 19:12:03 CDT Yoli tolbert MD PhD [facility] CPT-25645 Level 3 Est. Patient 14:36:01 CDT Yoli tolbert MD PhD [facility] CPT-12111 Level 2 Est. Patient 08:00:22 CDT Jcarlos dc MD [facility] CPT-33409 Level 3 Est. Patient 19:06:55 CDT Bertrand marquez [facility] CPT-73373 Level 3 Est. Patient 10:08:23 METAL TESTER Bertrand marquez [facility] CPT-37692 Level 3 Est. Patient 16:37:54 METAL TESTER Bertrand marquez [facility] CPT-22453 Level 3 Est. Patient 11:31:59 METAL TESTER Bertrand marquez [facility] CPT-55207 Level 3 Est. Patient 10:20:08 CDT Adolfo villasenor [facility] CPT-22014 Level 3 Est. Patient 13:45:20 CDT Sanket buckley [facility] CPT-19660 Level 3 Est. Patient 12:51:06 CDT Adolfo villasenor [facility] CPT-65797 Level 3 Est. Patient 11:22:51 METAL TESTER Yoli tolbert MD PhD [facility] CPT-23724 Level 3 Est. Patient 13:33:19 CDT Bertrand [facility]quez [facility] Procedures Code Procedure Name Date Entry Date Standard Desc ription CPT-82428 Wound Culture - LAB USE ONLY 15:45:25 CDT 2 CPT-58892 Venipuncture Draw Fee 10:23:01 CDT CPT-J0696 Rocephin 1000 mg (Ceftriaxone) 16:20:30 METAL TESTER CPT-79816 Abx/Therapy Injection 16:20:29 METAL TESTER CPT-J0696 Rocephin 1gm Inj Solr 15:51:59 METAL TESTER CPT-87946 Chest 2V Frontal and Lat 15:20:28 METAL TESTER 07/22 CPT-75652 Breathing Tx 14:51:55 METAL TESTER CPT-98654 Breathing Tx 09:57:16 METAL TESTER CPT-87901 Knee comp 4/> V 11:58:06 METAL TESTER
--- OUTSIDE RECORDS SUMMARY | 2019-11-13 10:00 | XMS REPORT | Clinical Summary ---
Author Author Admin, Enrique Adamson Organization [place] Address Unknown Phone Unavailable Allergies, Adverse Reactions, [...] 09/09/28 EDEMA LEG ICD-782.3 Inactive Adele Feldman AVIATION CONSULTANT 201 01/01/02 SHORTNESS OF BREATH ICD-786.05 Inactive Yoli Mercado MD PhD RIB PAIN, RIGHT SIDED ICD-786.50 Inactive Yoli Mercado MD PhD KNEE PAIN, RIGHT ICD-719.46 Inactive Adele chiu AVIATION CONSULTANT Knee pain, left ICD-719.46 Inactive Adele damico AVIATION CONSULTANT Pharyngitis-Acute ICD-462 Inactive Bertrand Redmond DO Polyuria ICD-788.42 Inactive Yoli Mercado MD P hD Cellulitis, leg, right ICD-682.6 Inactive Yuki Deluna MD Foreign body, ear ICD-931 Inactive Yoli salazar MD PhD Fatigue ICD-780.79 Inactive Ike Deluna MD 201 12/01/06 Headache ICD-784.0 Inactive Adele Gaston ARTHUR 2017 Cough ICD-786.2 Inactive Adele Feldman AVIATION CONSULTANT 06/04 SINUSITIS, ACUTE ICD-461.9 Inactive Ike lange MD Fatigue ICD-780.79 Inactive Adele Feldman AVIATION CONSULTANT 2017 Bronchitis acute with bronchospasm ICD-466.0 I nactive Adele Feldman AVIATION CONSULTANT Animal bite ICD-919.8 Inactive Adele Feldman LP N Mycoplasma infection ICD-041.81 Inactive Anit a Feldman AVIATION CONSULTANT Amenorrhea, secondary ICD-626.0 Inactive Ani ta Feldman AVIATION CONSULTANT Medication List Medication Instructions Start Date Stop Date Generic Name NDC Status Provider Patient Instruction LEVAQUIN 500 MG ORAL TABLET 1 tablet by mouth daily LEVOFLOXACIN 02358632678 Active Bertrand Patel DO Active ADDERALL 10 MG ORAL TABLET 1 tab twice daily 2 AMPHETAMINE-DEXTROAMPHETAMINE 82232601712 No Longer Active Nitza Phi llips Scribe Active ZITHROMAX Z-MARTIN 250 MG ORAL TABLET 2 today and then 1 daily for 4 days AZITHROMYCIN 71672465904 No Longer Active Nitza Osman lips Scribe Active BENZONATATE 200 MG ORAL CAPSULE 1 three times a day as neede d for cough BENZONATATE 99682224000 No Longer Active Nitza Brewer lips Scribe Active VITAMIN D3 63559 UNIT ORAL CAPSULE 1 pill Week x 4 mo nt for vitamin D deficiency/osteoporosis CHOLECALCIFEROL 96613601755 N o Longer Active Layla Garcia Active BACTROBAN 2 % EXTERNAL CREAM Apply to affected area BID for up to 10 days MUPIROCIN CALCIUM 90128559531 No Longer Active Ike Deluna MD Active CIPRO 500 MG ORAL TABLET 1 tablet by mouth twice daily CIPROFLOXACIN HCL 22993805667 No Longer Active Adriana Bender LPN Active AUGMENTIN 875-125 MG ORAL TABLET 1 po BID x 10 days 18/04/06 AMOXICILLIN-POT CLAVULANATE 17197909364 No Longer Active Adriana Bender LPN Active MODAFINIL 200 MG ORAL TABLET Take 1/2 tab po in the am and 1 /2 tab po at noon MODAFINIL 54159536260 Active Adele Feldman LPN Active CYCLOBENZAPRINE HCL 10 MG ORAL TABLET Take 1 tab TID PRN for mus triston pain CYCLOBENZAPRINE HCL 30292047896 No Longer Active Bertrand Patel DO Active TESSALON PERLES 100 MG ORAL CAPSULE 1 tablet by mouth 3 times da juan pablo BENZONATATE 33648254236 No Longer Active Bertrand Patel DO Ac tive NEBULIZER use as directed NEBULIZERS 63174843265 No Longer Active Bertrand Patel DO Active ALBUTEROL SULFATE (2.5 MG/3ML) 0.083% INHALATION NEBUL IZATION SOLUTION one vial per nebulizer every 4-6 hours as needed ALBUTERO L SULFATE 05554250155 No Longer Active Bertrand Ptael DO Active SYMBICORT 160-4.5 MCG/ACT INHALATION AEROSOL 2 puffs BID 9 BUDESONIDE-FORMOTEROL FUMARATE 20778310900 No Longer Active Bertrand Patel DO Active PREDNISONE 20 MG ORAL TABLET take 3 tabs daily for 3 d ays, 2 tabs daily for 3 days, 1 tab daily for 3 days, 1/2 tab daily for 3 days 08/02 PREDNISONE 10212217012 No Longer Active Silvia Arell CABLE STRANDER Active AZITHROMYCIN 250 MG ORAL TABLET Take 2 tabs po today then 1 tab po daily AZITHROMYCIN 60274300279 No Longer Active Silvia Arell CABLE STRANDER Active AUGMENTIN 875-125 MG ORAL TABLET 1 po BID x 10 days 19/07/13 AMOXICILLIN-POT CLAVULANATE 75030528915 No Longer Active Adriana Bender LPN Active CHEWABLE CALCIUM 500-200-40 MG-UNT-MCG ORAL TABLET CHEWABLE 1 chew tab bid CALCIUM-VITAMIN D-VITAMIN K 07456693911 Active Silvia Are ll CABLE STRANDER Active EQ COMPLETE MULTIVIT ADULT 50+ ORAL TABLET 1 tab po bid MULTIPLE VITAMINS-MINERALS 41321300592 Active Silvia Arell CABLE STRANDER Active HYDROCODONE-ACETAMINOPHEN 7.5-325 MG ORAL TABLET TAKE ONE TAB EVERY 6 HOURS BY MOUTH NEEDED FOR PAIN HYDROCODONE-ACETAMINOPHEN 004 09182036 Active Bertrand Patel DO Active LORTAB 7.5-500 MG ORAL TABLET take one po Q6 hours 201 09/12/01 HYDROCODONE-ACETAMINOPHEN 81075430235 No Longer Active Nirmal Robbins RN Active [facility] MELATONIN 5-10 MG ORAL TABLET EXTENDED RELEASE Jair e one by mouth daily at bedtime MELATONIN-PYRIDOXINE 97506034299 No Longer Acti ve Bertrand Patel DO Active VITAMIN E 200 UNIT ORAL CAPSULE 1 cap po qd VITAM IN E 89913482921 No Longer Active Bertrand Patel DO Active B-12 1000 MCG ORAL CAPSULE 1 tab daily CYANOCOB ALAMIN 83784705357 No Longer Active Bertrand Patel DO Active METFORMIN HCL 500 MG ORAL TABLET 1 bid METFOR MIN HCL 47625704949 No Longer Active Bertrand W Jorge DO Active FUROSEMIDE 20 MG ORAL TABLET 1 pill by mouth daily if needed for edema FUROSEMIDE 71326526432 No Longer Active Bertrand Patel DO Active PRAVASTATIN SODIUM 20 MG ORAL TABLET 1 tablet by mouth daily at bedtime PRAVASTATIN SODIUM 79474111452 No Longer Active Bertrand Patel DO Active AUGMENTIN 875-125 MG ORAL TABLET 1 pill by mouth twice daily 201 09/10/00 AMOXICILLIN-POT CLAVULANATE 77658949323 No Longer Active Yoli Mercado MD PhD Active LEVAQUIN 500 MG ORAL TABLET 1 pill by mouth daily 2013 LEVOFLOXACIN 43238864789 No Longer Active Yoli Mercado MD PhD Acti ve AMLODIPINE BESYLATE 5 MG ORAL TABLET 1 tablet by mouth daily for blood pressure AMLODIPINE BESYLATE 78834668713 Active Bertrand Patel DO Active MICARDIS 80 MG ORAL TABLET 1 tablet daily for blood pressure 07/30 TELMISARTAN 32690376349 Active Bertrand Patel DO Active MICARDIS HCT 80-12.5 MG ORAL TABLET 1 qd TELMISARTAN-HCTZ 35618325635 No Longer Active Bertrand Patel DO Active CINNAMON ALPHA LIPOIC AC CMPLX CAPSULE by mouth twice a day in AM by mouth twice a day in PM ALPHA LIPOIC [id number] CA PS 31566573629 No Longer Active Bertrand Patel DO Active AZITHROMYCIN 500 MG INTRAVENOUS SOLUTION RECONSTITUTED 1 po q da y AZITHROMYCIN 09192028817 No Longer Active Bertrand Patel DO A ctive CYMBALTA 30 MG ORAL CAPSULE DELAYED RELEASE PARTICLES 1 cap by mouth daily DULOXETINE HCL 85250451787 No Longer Active Bertrand marquez DO Active CYMBALTA 60 MG ORAL CAPSULE DELAYED RELEASE PARTICLES 1 cap by mouth daily DULOXETINE HCL 94409387867 Active Bertrand Patel DO Active WELLBUTRIN 75 MG ORAL TABLET 2 times daily BUPR OPION HCL 42075067047 No Longer Active Bertrand Patel DO Active PROAIR HFA 108 (90 Base) MCG/ACT INHALATION AEROSOL SO LUTION take one to two puffs po Q4-6 hour prn cough and shortness of breath ALBUTEROL SULFATE 46270737415 Active Silvia Vazquez APRN Active AZITHROMYCIN 250 MG ORAL TABLET take 2 po today then take 1 po days 2-5 AZITHROMYCIN 83810901009 No Longer Active Adolfo traore PA Active PERMETHRIN 5 % EXTERNAL CREAM apply neck to toes tonig ht and then rinse off in morning. repeat at 7 days PERMETHRIN 92819351064 No Longer Active Adolfo OSORIO Active AMOXICILLIN 500 MG ORAL CAPSULE 2 po BID x 10 days 201 07/15/00 AMOXICILLIN 70765825334 No Longer Active Yoli Mercado MD PhD Acti ve ALPRAZOLAM 0.5 MG ORAL TABLET 1 tab by mouth tid ALPRAZOLAM 14872375050 Active Bertrand Patel DO Active INSUPEN ULTRAFIN 31G X 6 MM USE DIRECTED INSULIN PEN NEEDLE 18810109155 No Longer Active Bertrand Patel DO Active TRANSDERM-SCOP (1.5 MG) 1 MG/3DAYS TRANSDERMAL PATCH 7 2 HOUR 1 patch applied behind ear q 3 day SCOPOLAMINE BASE 66667379367 No Lo nger Active Bertrand Patel DO Active MACRODANTIN 100 MG ORAL CAPSULE one p.o. b.i.d. x2 weeks NITROFURANTOIN MACROCRYSTAL 51773380524 No Longer Active Bertrand Patel DO Active MACRODANTIN 100 MG ORAL CAPSULE one p.o. b.i.d. x2 weeks MACRODANTIN 100 MG ORAL CAPSULE 8753678 NITROFURANTOIN MACROCRYSTAL Inactive TRANSDERM-SCOP (1.5 MG) 1 [...] days PERMETHRIN 5 % EXTER NAL CREAM 372564 PERMETHRIN Inactive WELLBUTRIN 75 MG ORAL TABLET 2 times daily WELLBUTRIN 75 MG ORAL TABLET BUPROPION HCL Inactive CYMBALTA 30 MG ORAL CAPSULE DELAYED RELEASE PARTICLES 1 cap by mouth daily CYMBALTA 30 MG ORAL CAPSULE DELAYED RELE ASE PARTICLES 455639 DULOXETINE HCL Inactive AZITHROMYCIN 500 MG INTRAVENOUS SOLUTION RECONSTITUTED 1 po q da y AZITHROMYCIN 500 MG INTRAVENOUS SOLUTION RECONSTITUTED 67259 548250 AZITHROMYCIN Inactive CINNAMON ALPHA LIPOIC AC CMPLX CAPSULE by mouth twice a day in AM by mouth twice a day in PM CINNAMON ALPHA LIPOIC AC CMPLX CAPSULE ALPHA LIPOIC BUID-[id number] CAPS Inactive MICARDIS HCT 80-12.5 MG ORAL TABLET 1 qd 07/30 MICARDIS HCT 80-12.5 MG ORAL TABLET 884217 TELMISARTAN-HCTZ Inactive PRAVASTATIN SODIUM 20 MG ORAL TABLET 1 tablet by mouth daily at bedtime PRAVASTATIN SODIUM 20 MG ORAL TABLET 047650 PRAVASTATIN SODIUM Inactive FUROSEMIDE 20 MG ORAL TABLET 1 pill by mouth daily if needed for edema FUROSEMIDE 20 MG ORAL TABLET 808720 FUROSEMIDE Inactive METFORMIN HCL 500 MG ORAL TABLET 1 bid METFORMIN HCL 500 MG ORAL TABLET 315984 METFORMIN HCL Inactive B-12 1000 MCG ORAL CAPSULE 1 tab daily B -12 1000 MCG ORAL CAPSULE CYANOCOBALAMIN Inactive VITAMIN E 200 UNIT ORAL CAPSULE 1 cap po qd 1 VITAMIN E 200 UNIT ORAL CAPSULE 2406562 VITAMIN E Inactive [facility] MELATONIN 5-10 MG [...] po daily AZITHROMYCIN 250 MG ORAL TABLET 313724 AZITHROMY BERNARDO Inactive SYMBICORT 160-4.5 MCG/ACT INHALATION AEROSOL 2 puffs BID 9 SYMBICORT 160-4.5 MCG/ACT INHALATION AEROSOL BUDESONIDE-FORM OTEROL FUMARATE Inactive ALBUTEROL SULFATE (2.5 MG/3ML) 0.083% INHALATION NEBUL IZATION SOLUTION one vial per nebulizer every 4-6 hours as needed ALBUTEROL SULFATE (2.5 MG/3ML) 0.083% INHALATION NEBULIZATION SOLUTION 945348 ALBUTER OL SULFATE Inactive NEBULIZER use as directed NEBULIZER NEBULI ZERS Inactive TESSALON PERLES 100 MG ORAL CAPSULE 1 tablet by mouth 3 times da juan pablo TESSALON PERLES 100 MG ORAL CAPSULE 006378 BENZONATATE Inactive CYCLOBENZAPRINE HCL 10 MG ORAL TABLET Take 1 tab TID PRN for mus triston pain CYCLOBENZAPRINE HCL 10 MG ORAL TABLET 843138 CYCLOBENZA ANUJA HCL Inactive AUGMENTIN 875-125 MG ORAL TABLET 1 po BID x 10 days 20 18/04/06 AUGMENTIN 875-125 MG ORAL TABLET 381880 AMOXICILLIN-POT CLAVULANATE Inactive BACTROBAN 2 % EXTERNAL CREAM Apply to affected area BID for up to 10 days BACTROBAN 2 % EXTERNAL CREAM 692093 MUPIROCIN CA LCIUM Inactive VITAMIN D3 59676 UNIT ORAL CAPSULE 1 pill Week x 4 mo nt for vitamin D deficiency/osteoporosis VITAMIN D3 90050 UNIT ORAL CAPSULE CHOLECALCIFEROL Inactive BENZONATATE 200 MG ORAL CAPSULE 1 three times a day as neede d for cough BENZONATATE 200 MG ORAL CAPSULE 932757 BENZONATA TE Inactive ZITHROMAX Z-MARTIN 250 MG ORAL TABLET 2 today and then 1 daily for 4 days ZITHROMAX Z-MARTIN 250 MG ORAL TABLET 673678 AZITHR OMYCIN Inactive ADDERALL 10 MG ORAL TABLET 1 tab twice daily 2 ADDERALL 10 MG ORAL TABLET 210602 AMPHETAMINE-DEXTROAMPHETAMINE Inactive AMOXICILLIN 500 MG ORAL CAPSULE 2 po BID x 10 days 201 07/15/00 AMOXICILLIN 500 MG ORAL CAPSULE 173795 AMOXICILLIN Inactive AZITHROMYCIN 250 MG ORAL TABLET take 2 po today then take 1 po days 2-5 AZITHROMYCIN 250 MG ORAL TABLET 945464 AZITHROMY BERNARDO Inactive LEVAQUIN 500 MG ORAL TABLET 1 pill by mouth daily 2013 LEVAQUIN 500 MG ORAL TABLET 324345 LEVOFLOXACIN Inactive AUGMENTIN 875-125 MG ORAL TABLET 1 pill by mouth twice daily 201 09/10/00 AUGMENTIN 875-125 MG ORAL TABLET 236648 AMOXICILLIN-POT CLAVULANATE Inactive AUGMENTIN 875-125 MG ORAL TABLET 1 po BID x 10 days 20 19/07/13 AUGMENTIN 875-125 MG ORAL TABLET 314615 AMOXICILLIN-POT CLAVULANATE Inactive PREDNISONE 20 MG ORAL TABLET take 3 tabs daily for 3 d ays, 2 tabs daily for 3 days, 1 tab daily for 3 days, 1/2 tab daily for 3 days 08/02 PREDNISONE 20 MG ORAL TABLET 591268 PREDNISONE Inactive CIPRO 500 MG ORAL TABLET 1 tablet by mouth twice daily CIPRO 500 MG ORAL TABLET 782279 CIPROFLOXACIN HCL Inactive Vital Signs Date Name [...] HGBA1C - Chemistry sodium, serum 143 mmol/L 103-095 5850/01/02 carbon dioxide, venous blood 31.7 mmol/L 21.0-32 [...] 142-424 Encounters Code Encounter Date Provider Facility CPT-65922 Level 3 Est. Patient 11:40:23 CDT Bertrand marquez [facility] [place]-28388 Level 4 Est. Patient 15:33:35 UNIVERSITY TUTOR Bertrand marquez [facility] [place]-00544 Level 4 Est. Patient 12:31:54 CDT Bertrand marquez [facility] [place]-09913 Level 3 Est. Patient 11:27:00 UNIVERSITY TUTOR Ike Deluna MD [facility]-95162 Level 3 Est. Patient 08:50:57 UNIVERSITY TUTOR Silvia Are ll [facility]-63443 Level 3 Est. Patient 10:04:13 CDT Bertrand marquez [facility] [place]-38385 Level 4 Est. Patient 16:02:10 UNIVERSITY TUTOR Silvia Are ll [facility]-19369 Level 3 Est. Patient 13:04:54 UNIVERSITY TUTOR Silvia Are [facility]-80634 Level 3 Est. Patient 12:56:37 CDT Bertrand marquez [facility] CPT-09521 Level 3 Est. Patient 19:12:03 CDT Yoli tolbert MD [facility] CPT-44127 Level 3 Est. Patient 14:36:01 CDT Yoli tolbert MD [facility] CPT-31359 Level 2 Est. Patient 08:00:22 CDT Jcarlos dc MD [facility]-81859 Level 3 Est. Patient 19:06:55 CDT Bertrand marquez [facility] CPT-60260 Level 3 Est. Patient 10:08:23 UNIVERSITY TUTOR Bertrand marquez [facility] CPT-77138 Level 3 Est. Patient 16:37:54 UNIVERSITY TUTOR Bertrand marquez [facility] CPT-60270 Level 3 Est. Patient 11:31:59 UNIVERSITY TUTOR Bertrand marquez [facility] CPT-65303 Level 3 Est. Patient 10:20:08 CDT Adolfo villasenor [facility] CPT-31654 Level 3 Est. Patient 13:45:20 CDT Sanket Josekelvin buckley [facility] CPT-87456 Level 3 Est. Patient 12:51:06 CDT Adolfo villasenor [facility] CPT-70494 Level 3 Est. Patient 11:22:51 UNIVERSITY TUTOR Yoli tolbert MD PhD [facility] CPT-79999 Level 3 Est. Patient 13:33:19 CDT Bertrand marquez [facility] Procedures Code Procedure Name Date Entry Date Standard Desc ription CPT-81886 Wound Culture - LAB USE ONLY 15:45:25 CDT 2 CPT-41099 Venipuncture Draw Fee 10:23:01 CDT CPT-J0696 Rocephin 1000 mg (Ceftriaxone) 16:20:30 UNIVERSITY TUTOR CPT-21960 Abx/Therapy Injection 16:20:29 UNIVERSITY TUTOR CPT-J0696 Rocephin 1gm Inj Solr 15:51:59 UNIVERSITY TUTOR CPT-55675 Chest 2V Frontal and Lat 15:20:28 UNIVERSITY TUTOR 07/22 CPT-37161 Breathing Tx 14:51:55 UNIVERSITY TUTOR CPT-81459 Breathing Tx 09:57:16 UNIVERSITY TUTOR CPT-93794 Knee comp 4/> V 11:58:06 UNIVERSITY TUTOR
--- OUTSIDE RECORDS SUMMARY | 2019-11-13 10:01 | XMS REPORT | Clinical Summary ---
[...] 201 07/14/20 FH DIABETES ICD-V18.0 Inactive Yoli Mecrado MD PhD 20 14/02/29 SINUSITIS, FRONTAL, ACUTE ICD-461.1 Inactive Yoli Mercado MD PhD COUGH ICD-786.2 Inactive Yoli Mercado MD PhD 201 09/09/28 EDEMA LEG ICD-782.3 Inactive Adele Feldman [employer]IPMENT [employer]ER 201 01/01/02 SHORTNESS OF BREATH ICD-786.05 Inactive Yoli Mrecado MD PhD RIB PAIN, RIGHT SIDED ICD-786.50 Inactive Yoli Mercado MD PhD KNEE PAIN, RIGHT ICD-719.46 Inactive Adele chiu [employer]MENT [employer] Knee pain, left ICD-719.46 Inactive Adele damico [employer]MENT [employer]ER Pharyngitis-Acute ICD-462 Inactive Bertrand Redmond DO Polyuria ICD-788.42 Inactive Yoli Mercado MD P hD Foreign body, ear ICD-931 Inactive Yoli salazar MD PhD Fatigue ICD-780.79 Inactive Ike Deluna MD 201 12/01/06 Headache ICD-784.0 Inactive Adele Feldman VE[employer] E[employer]MENT [employer]ER 2017 Cough ICD-786.2 Inactive Adele Feldman VE[employer] AND EQUIPMENT CLE[employer]ER 06/04 SINUSITIS, ACUTE ICD-461.9 Inactive Ike lange MD Fatigue ICD-780.79 Inactive Adele Feldman VE[employer] E[employer]MENT CLE[employer]ER 2017 Bronchitis acute with bronchospasm ICD-466.0 I nactive Adele Feldman VE[employer]LE AND EQUIPMENT CLE[employer]ER Animal bite ICD-919.8 Inactive Adele Feldman LP N Mycoplasma infection ICD-041.81 Inactive Anit a Feldman VE[employer] AND EQUIPMENT CLE[employer]ER Amenorrhea, secondary ICD-626.0 Inactive Ani ta Feldman VE[employer] AND EQUIPMENT CLE[employer]ER Cellulitis, leg, right ICD-682.6 Inactive Yuki Deluna MD Medication List Medication Instructions Start Date Stop Date Generic Name NDC Status Provider Patient Instruction LEVAQUIN 500 MG ORAL TABLET 1 tablet by mouth daily LEVOFLOXACIN 80276032607 Active Bertrand Patel DO Active ADDERALL 10 MG ORAL TABLET 1 tab twice daily 2 AMPHETAMINE-DEXTROAMPHETAMINE 19552195625 No Longer Active Nitza Phi llips Scribe Active ZITHROMAX Z-MARTIN 250 MG ORAL TABLET 2 today and then 1 daily for 4 days AZITHROMYCIN 64195948711 No Longer Active Nitza Osman lips Scribe Active BENZONATATE 200 MG ORAL CAPSULE 1 three times a day as neede d for cough BENZONATATE 36853839188 No Longer Active Nitza Brewer lips Scribe Active VITAMIN D3 32266 UNIT ORAL CAPSULE 1 pill Week x 4 mo [facility] for vitamin D deficiency/osteoporosis CHOLECALCIFEROL 17871843556 N o Longer Active Layla Mcmullen Active BACTROBAN 2 % EXTERNAL CREAM Apply to affected area BID for up to 10 days MUPIROCIN CALCIUM 56947289290 No Longer Active Ike Deluna MD Active CIPRO 500 MG ORAL TABLET 1 tablet by mouth twice daily CIPROFLOXACIN HCL 21433343053 No Longer Active Adriana Bender LPN Active AUGMENTIN 875-125 MG ORAL TABLET 1 po BID x 10 days 18/04/06 AMOXICILLIN-POT CLAVULANATE 52708612682 No Longer Active Adriana Bender LPN Active MODAFINIL 200 MG ORAL TABLET Take 1/2 tab po in the am and 1 /2 tab po at noon MODAFINIL 01792036059 Active Bertrand Rowan tive CYCLOBENZAPRINE HCL 10 MG ORAL TABLET Take 1 tab TID PRN for mus triston pain CYCLOBENZAPRINE HCL 58782923512 No Longer Active Bertrand Patel DO Active TESSALON PERLES 100 MG ORAL CAPSULE 1 tablet by mouth 3 times da juan pablo BENZONATATE 44611103134 No Longer Active Bertrand Patel DO Ac tive NEBULIZER use as directed NEBULIZERS 66996145301 No Longer Active Bertrand Patel DO Active ALBUTEROL SULFATE (2.5 MG/3ML) 0.083% INHALATION NEBUL IZATION SOLUTION one vial per nebulizer every 4-6 hours as needed ALBUTERO L SULFATE 23667901865 No Longer Active Berrtand Patel DO Active SYMBICORT 160-4.5 MCG/ACT INHALATION AEROSOL 2 puffs BID 9 BUDESONIDE-FORMOTEROL FUMARATE 64221468425 No Longer Active Bertrand Patel DO Active PREDNISONE 20 MG ORAL TABLET take 3 tabs daily for 3 d ays, 2 tabs daily for 3 days, 1 tab daily for 3 days, 1/2 tab daily for 3 days 08/02 PREDNISONE 14509371020 No Longer Active Silvia Arell DIRECTOR OF OUTPATIENT SERVICES Active AZITHROMYCIN 250 MG ORAL TABLET Take 2 tabs po today then 1 tab po daily AZITHROMYCIN 24781416961 No Longer Active Silvia Arell DIRECTOR OF OUTPATIENT SERVICES Active AUGMENTIN 875-125 MG ORAL TABLET 1 po BID x 10 days 19/07/13 AMOXICILLIN-POT CLAVULANATE 00187293763 No Longer Active Adriana Bender LPN Active CHEWABLE CALCIUM 500-200-40 MG-UNT-MCG ORAL TABLET CHEWABLE 1 chew tab bid CALCIUM-VITAMIN D-VITAMIN K 48614929393 Active Silvia Are ll DIRECTOR OF OUTPATIENT SERVICES Active EQ COMPLETE MULTIVIT ADULT 50+ ORAL TABLET 1 tab po bid MULTIPLE VITAMINS-MINERALS 12043891406 Active Silvia Arell DIRECTOR OF OUTPATIENT SERVICES Active HYDROCODONE-ACETAMINOPHEN 7.5-325 MG ORAL TABLET TAKE ONE TAB EVERY 6 HOURS BY MOUTH NEEDED FOR PAIN HYDROCODONE-ACETAMINOPHEN 004 86952623 Active Bertrand Patel DO Active LORTAB 7.5-500 MG ORAL TABLET take one po Q6 hours 201 09/12/01 HYDROCODONE-ACETAMINOPHEN 69510958083 No Longer Active Nirmal Robbins RN Active [facility] MELATONIN 5-10 MG ORAL TABLET EXTENDED RELEASE Jair e one by mouth daily at bedtime MELATONIN-PYRIDOXINE 81274491622 No Longer Acti ve Bertrand Patel DO Active VITAMIN E 200 UNIT ORAL CAPSULE 1 cap po qd VITAM IN E 59105315194 No Longer Active Bertrand Patel DO Active B-12 1000 MCG ORAL CAPSULE 1 tab daily CYANOCOB ALAMIN 53632778483 No Longer Active Bertrand Patel DO Active METFORMIN HCL 500 MG ORAL TABLET 1 bid METFOR MIN HCL 32235387904 No Longer Active Bertrand Patel DO Active FUROSEMIDE 20 MG ORAL TABLET 1 pill by mouth daily if needed for edema FUROSEMIDE 73584543763 No Longer Active Bertrand Patel DO Active PRAVASTATIN SODIUM 20 MG ORAL TABLET 1 tablet by mouth daily at bedtime PRAVASTATIN SODIUM 67774181776 No Longer Active Bertrand Patel DO Active AUGMENTIN 875-125 MG ORAL TABLET 1 pill by mouth twice daily 201 09/10/00 AMOXICILLIN-POT CLAVULANATE 85179931944 No Longer Active Yoli Mercado MD PhD Active LEVAQUIN 500 MG ORAL TABLET 1 pill by mouth daily 2013 LEVOFLOXACIN 75977126068 No Longer Active Yoli Mercado MD PhD Acti ve AMLODIPINE BESYLATE 5 MG ORAL TABLET 1 tablet by mouth daily for blood pressure AMLODIPINE BESYLATE 76729063171 Active Bertrand Patel DO Active MICARDIS 80 MG ORAL TABLET 1 tablet daily for blood pressure 07/30 TELMISARTAN 89582708180 Active Bertrand Patel DO Active MICARDIS HCT 80-12.5 MG ORAL TABLET 1 qd TELMISARTAN-HCTZ 24051504260 No Longer Active Bertrand Patel DO Active CINNAMON ALPHA LIPOIC AC CMPLX CAPSULE by mouth twice a day in AM by mouth twice a day in PM ALPHA LIPOIC OLYV-GY-ZKORWEHP CA PS 38633345460 No Longer Active Bertrand Patel DO Active AZITHROMYCIN 500 MG INTRAVENOUS SOLUTION RECONSTITUTED 1 po q da y AZITHROMYCIN 21502546897 No Longer Active Bertrand Patel DO A ctive CYMBALTA 30 MG ORAL CAPSULE DELAYED RELEASE PARTICLES 1 cap by mouth daily DULOXETINE HCL 15416717947 No Longer Active Bertrand marquez DO Active CYMBALTA 60 MG ORAL CAPSULE DELAYED RELEASE PARTICLES 1 cap by mouth daily DULOXETINE HCL 08208376302 Active Bertrand Patel DO Active WELLBUTRIN 75 MG ORAL TABLET 2 times daily BUPR OPION HCL 95913927130 No Longer Active Bertarnd Patel DO Active PROAIR HFA 108 (90 Base) MCG/ACT INHALATION AEROSOL SO LUTION take one to two puffs po Q4-6 hour prn cough and shortness of breath ALBUTEROL SULFATE 96056981021 Active Silvia Taylor JENN Active AZITHROMYCIN 250 MG ORAL TABLET take 2 po today then take 1 po days 2-5 AZITHROMYCIN 42989486663 No Longer Active Adolfo OSORIO Active PERMETHRIN 5 % EXTERNAL CREAM apply neck to toes tonig ht and then rinse off in morning. repeat at 7 days PERMETHRIN 83298493431 No Longer Active Adolfo OSORIO Active AMOXICILLIN 500 MG ORAL CAPSULE 2 po BID x 10 days 201 07/15/00 AMOXICILLIN 68695701664 No Longer Active Yoli Mercado MD PhD Acti ve ALPRAZOLAM 0.5 MG ORAL TABLET 1 tab by mouth tid ALPRAZOLAM 74297534559 Active Bertrand Patel DO Active INSUPEN ULTRAFIN 31G X 6 MM USE DIRECTED INSULIN PEN NEEDLE 79230356190 No Longer Active Bertrand Patel DO Active TRANSDERM-SCOP (1.5 MG) 1 MG/3DAYS TRANSDERMAL PATCH 7 2 HOUR 1 patch applied behind ear q 3 day SCOPOLAMINE BASE 14064838345 No Lo nger Active Bertrand Patel DO Active MACRODANTIN 100 MG ORAL CAPSULE one p.o. b.i.d. x2 weeks NITROFURANTOIN MACROCRYSTAL 33847136947 No Longer Active Bertrand Patel DO Active MACRODANTIN 100 MG ORAL CAPSULE one p.o. b.i.d. x2 weeks MACRODANTIN 100 MG ORAL CAPSULE 2661837 NITROFURANTOIN MACROCRYSTAL Inactive TRANSDERM-SCOP (1.5 MG) 1 [...] days PERMETHRIN 5 % EXTER NAL CREAM 310479 PERMETHRIN Inactive WELLBUTRIN 75 MG ORAL TABLET 2 times daily WELLBUTRIN 75 MG ORAL TABLET 146082 BUPROPION HCL Inactive CYMBALTA 30 MG ORAL CAPSULE DELAYED RELEASE PARTICLES 1 cap by mouth daily CYMBALTA 30 MG ORAL CAPSULE DELAYED RELE ASE PARTICLES 650629 DULOXETINE HCL Inactive AZITHROMYCIN 500 MG INTRAVENOUS SOLUTION RECONSTITUTED 1 po q da y AZITHROMYCIN 500 MG INTRAVENOUS SOLUTION RECONSTITUTED 36318 511144 AZITHROMYCIN Inactive CINNAMON ALPHA LIPOIC AC CMPLX CAPSULE by mouth twice a day in AM by mouth twice a day in PM CINNAMON ALPHA LIPOIC AC CMPLX CAPSULE ALPHA LIPOIC [id number] CAPS Inactive MICARDIS HCT 80-12.5 MG ORAL TABLET 1 qd 07/30 MICARDIS HCT 80-12.5 MG ORAL TABLET 951258 TELMISARTAN-HCTZ Inactive PRAVASTATIN SODIUM 20 MG ORAL TABLET 1 tablet by mouth daily at bedtime PRAVASTATIN SODIUM 20 MG ORAL TABLET 386968 PRAVASTATIN SODIUM Inactive FUROSEMIDE 20 MG ORAL TABLET 1 pill by mouth daily if needed for edema FUROSEMIDE 20 MG ORAL TABLET 420352 FUROSEMIDE Inactive METFORMIN HCL 500 MG ORAL TABLET 1 bid METFORMIN HCL 500 MG ORAL TABLET 656017 METFORMIN HCL Inactive B-12 1000 MCG ORAL CAPSULE 1 tab daily B -12 1000 MCG ORAL CAPSULE CYANOCOBALAMIN Inactive VITAMIN E 200 UNIT ORAL CAPSULE 1 cap po qd 1 VITAMIN E 200 UNIT ORAL CAPSULE 4760797 VITAMIN E Inactive [facility] MELATONIN 5-10 MG [...] po daily AZITHROMYCIN 250 MG ORAL TABLET 766745 AZITHROMY BERNARDO Inactive SYMBICORT 160-4.5 MCG/ACT INHALATION AEROSOL 2 puffs BID 9 SYMBICORT 160-4.5 MCG/ACT INHALATION AEROSOL BUDESONIDE-FORM OTEROL FUMARATE Inactive ALBUTEROL SULFATE (2.5 MG/3ML) 0.083% INHALATION NEBUL IZATION SOLUTION one vial per nebulizer every 4-6 hours as needed ALBUTEROL SULFATE (2.5 MG/3ML) 0.083% INHALATION NEBULIZATION SOLUTION 902581 ALBUTER OL SULFATE Inactive NEBULIZER use as directed NEBULIZER NEBULI ZERS Inactive TESSALON PERLES 100 MG ORAL CAPSULE 1 tablet by mouth 3 times da juan pablo TESSALON PERLES 100 MG ORAL CAPSULE 626863 BENZONATATE Inactive CYCLOBENZAPRINE HCL 10 MG ORAL TABLET Take 1 tab TID PRN for mus triston pain CYCLOBENZAPRINE HCL 10 MG ORAL TABLET 300694 CYCLOBENZA ANUJA HCL Inactive AUGMENTIN 875-125 MG ORAL TABLET 1 po BID x 10 days 20 18/04/06 AUGMENTIN 875-125 MG ORAL TABLET 338883 AMOXICILLIN-POT CLAVULANATE Inactive BACTROBAN 2 % EXTERNAL CREAM Apply to affected area BID for up to 10 days BACTROBAN 2 % EXTERNAL CREAM 460877 MUPIROCIN CA LCIUM Inactive VITAMIN D3 29121 UNIT ORAL CAPSULE 1 pill Week x 4 mo nt for vitamin D deficiency/osteoporosis VITAMIN D3 97249 UNIT ORAL CAPSULE CHOLECALCIFEROL Inactive BENZONATATE 200 MG ORAL CAPSULE 1 three times a day as neede d for cough BENZONATATE 200 MG ORAL CAPSULE 135597 BENZONATA TE Inactive ZITHROMAX Z-MARTIN 250 MG ORAL TABLET 2 today and then 1 daily for 4 days ZITHROMAX Z-MARTIN 250 MG ORAL TABLET 504130 AZITHR OMYCIN Inactive ADDERALL 10 MG ORAL TABLET 1 tab twice daily 2 ADDERALL 10 MG ORAL TABLET 049491 AMPHETAMINE-DEXTROAMPHETAMINE Inactive AMOXICILLIN 500 MG ORAL CAPSULE 2 po BID x 10 days 201 07/15/00 AMOXICILLIN 500 MG ORAL CAPSULE 844776 AMOXICILLIN Inactive AZITHROMYCIN 250 MG ORAL TABLET take 2 po today then take 1 po days 2-5 AZITHROMYCIN 250 MG ORAL TABLET 916254 AZITHROMY BERNARDO Inactive LEVAQUIN 500 MG ORAL TABLET 1 pill by mouth daily 2013 LEVAQUIN 500 MG ORAL TABLET 611552 LEVOFLOXACIN Inactive AUGMENTIN 875-125 MG ORAL TABLET 1 pill by mouth twice daily 201 09/10/00 AUGMENTIN 875-125 MG ORAL TABLET 446960 AMOXICILLIN-POT CLAVULANATE Inactive AUGMENTIN 875-125 MG ORAL TABLET 1 po BID x 10 days 20 19/07/13 AUGMENTIN 875-125 MG ORAL TABLET 105648 AMOXICILLIN-POT CLAVULANATE Inactive PREDNISONE 20 MG ORAL TABLET take 3 tabs daily for 3 d ays, 2 tabs daily for 3 days, 1 tab daily for 3 days, 1/2 tab daily for 3 days 08/02 PREDNISONE 20 MG ORAL TABLET 080637 PREDNISONE Inactive CIPRO 500 MG ORAL TABLET 1 tablet by mouth twice daily CIPRO 500 MG ORAL TABLET 379215 CIPROFLOXACIN HCL Inactive Vital Signs Date Name [...] weight E&M 349.31 [lb_av] Weight Measure d blood pressure, diastolic 82 mm[Hg] BP [place] blood pressure, systolic 145 mm[Hg] BP sys pulse rate E&M 83 /min Heart rate temperature E&M 97.8 [degF] Body temp erature weight E&M 338.1 [lb_av] Weight Measure d Diagnostic Results Date Name Value Unit Range Description Lab Report: CBC, Comp. Metabolic Panel, HGBA1C - Chemistry sodium, serum 143 mmol/L 287-946 7988/01/02 carbon dioxide, venous blood 31.7 mmol/L 21.0-32 [...] CBC, Comp. Metabolic Panel, HGBA1C - Hematology hemoglobin, blood 12.3 g/dL 12.0-16.0 erythrocyte (RBC) count 4.16 10^6/MM^3 10*6/mm3 3.80-5.8 0 leukocyte count, blood 7.7 10^3/MM^3 10*3/mm3 4.6-10.2 mean corpuscular volume, RBC 94 fL 80-97 mean corpuscular hemoglobin, RBC 29.5 pg 27. 0-31.2 hematocrit, blood 39.0 % 37.0-47.0 mean corpuscular hemoglobin concentration, RBC 31.5 G/DL % 31.8-35.4 red blood cell distribution width 12.3 % 11 .6-14.8 platelet count 279 10^3/MM^3 10*3/mm3 142-424 Lab Report: FSH AND LH/7137/Adult - Chem istry follicle stimulating hormone, serum 62.5 m[iU]/mL luteinizing hormone, serum 29.6 m[iU]/mL Lab Report: HGBA1C - Chemistry hemoglobin A1C, blood, as % of total hemoglobin 6.2 % 4.3-6.0 Lab Report: MICROALB/CREAT W/RATIO - Delores balaji albumin/creatinine ratio, urine <30 mg/g Normal mg/g m g/g{creat} 0-29 Lab Report: MICROALB/CREAT W/RATIO - Lab microalbumin, urine 10 mg/L 0-19 Encounters Code Encounter Date Provider Facility CPT-95413 Level 3 Est. Patient 11:40:23 CDT Bertrand marquez DO Lizy [facility] CPT-00151 Level 4 Est. Patient 15:33:35 FISHING MANAGER Bertrand marquez DO Lizy [facility] CPT-20869 Level 4 Est. Patient 12:31:54 CDT Bertrand marquez DO Lizy [facility] CPT-98786 Level 3 Est. Patient 11:27:00 FISHING MANAGER Ike Deluna MD [facility] CPT-44100 Level 3 Est. Patient 08:50:57 FISHING MANAGER Silvia gagnon APRN [facility] CPT-29076 Level 3 Est. Patient 10:04:13 CDT Bertrand W L ee [facility]-11782 Level 4 Est. Patient 16:02:10 FISHING MANAGER Silvia Are ll [facility] CPT-16301 Level 3 Est. Patient 13:04:54 FISHING MANAGER Silvia Are ll [facility]-13170 Level 3 Est. Patient 12:56:37 CDT Bertrand marquez [facility]-64805 Level 3 Est. Patient 19:12:03 CDT Yoli tolbert MD [facility] [place]-61045 Level 3 Est. Patient 14:36:01 CDT Yoli tolbert MD [facility] [place]-29038 Level 2 Est. Patient 08:00:22 CDT Jcarlos dc MD [facility]-08533 Level 3 Est. Patient 19:06:55 CDT Bertrand marquez [facility] CPT-16584 Level 3 Est. Patient 10:08:23 FISHING MANAGER Bertrand marquez [facility]-41867 Level 3 Est. Patient 16:37:54 FISHING MANAGER Bertrand marquez [facility]-52585 Level 3 Est. Patient 11:31:59 FISHING MANAGER Bertrand marquez [facility] CPT-14834 Level 3 Est. Patient 10:20:08 CDT Adolfo villasenor [facility]-06601 Level 3 Est. Patient 13:45:20 CDT Sanket buckley [facility]-12251 Level 3 Est. Patient 12:51:06 CDT Adolfo villasenor [facility]-84482 Level 3 Est. Patient 11:22:51 FISHING MANAGER Yoli tolbert MD [facility]22966 Level 3 Est. Patient 13:33:19 CDT Bertrand marquez [facility] Procedures Code Procedure Name Date Entry Date Standard Desc ription CPT-91081 Wound Culture - LAB USE ONLY 15:45:25 CDT 2 CPT-88253 Venipuncture Draw Fee 10:23:01 CDT CPT-J0696 Rocephin 1000 mg (Ceftriaxone) 16:20:30 FISHING MANAGER CPT-70322 Abx/Therapy Injection 16:20:29 FISHING MANAGER CPT-J0696 Rocephin 1gm Inj Solr 15:51:59 FISHING MANAGER CPT-26387 Chest 2V Frontal and Lat 15:20:28 FISHING MANAGER 07/22 CPT-98726 Breathing Tx 14:51:55 FISHING MANAGER CPT-27969 Breathing Tx 09:57:16 FISHING MANAGER CPT-74935 Knee comp 4/> V 11:58:06 FISHING MANAGER
--- OUTSIDE RECORDS SUMMARY | 2019-11-13 10:01 | XMS REPORT | Clinical Summary ---
Author Author Admin, Enrique Adamson Organization [employer] Address Unknown Phone Unavailable Allergies, Adverse Reactions, [...] 09/09/28 EDEMA LEG ICD-782.3 Inactive Adele Feldman VISITING PROFESSOR 201 01/01/02 SHORTNESS OF BREATH ICD-786.05 Inactive Yoli Mercado MD PhD RIB PAIN, RIGHT SIDED ICD-786.50 Inactive Yoli Mercado MD PhD KNEE PAIN, RIGHT ICD-719.46 Inactive Adele chiu VISITING PROFESSOR Knee pain, left ICD-719.46 Inactive Adele damico VISITING PROFESSOR Pharyngitis-Acute ICD-462 Inactive Bertrand Redmond DO Polyuria ICD-788.42 Inactive Yoli Mercado MD P hD Cellulitis, leg, right ICD-682.6 Inactive Yuki Deluna MD Foreign body, ear ICD-931 Inactive Yoli salazar MD PhD Fatigue ICD-780.79 Inactive Ike Deluna MD 201 12/01/06 Headache ICD-784.0 Inactive Adele Gaston ARTHUR 2017 Cough ICD-786.2 Inactive Adele Feldman VISITING PROFESSOR 06/04 SINUSITIS, ACUTE ICD-461.9 Inactive Ike lange MD Fatigue ICD-780.79 Inactive Adele Feldman VISITING PROFESSOR 2017 Bronchitis acute with bronchospasm ICD-466.0 I nactive Adele Feldman VISITING PROFESSOR Animal bite ICD-919.8 Inactive Adele Feldman LP N Mycoplasma infection ICD-041.81 Inactive Anit a Feldman VISITING PROFESSOR Amenorrhea, secondary ICD-626.0 Inactive Ani ta Feldman VISITING PROFESSOR Medication List Medication Instructions Start Date Stop Date Generic Name NDC Status Provider Patient Instruction LEVAQUIN 500 MG ORAL TABLET 1 tablet by mouth daily LEVOFLOXACIN 57839948495 Active Bertrand Patel DO Active ADDERALL 10 MG ORAL TABLET 1 tab twice daily 2 AMPHETAMINE-DEXTROAMPHETAMINE 70913020489 No Longer Active Nitza Phi llips Scribe Active ZITHROMAX Z-MARTIN 250 MG ORAL TABLET 2 today and then 1 daily for 4 days AZITHROMYCIN 57648375989 No Longer Active Nitza Osman lips Scribe Active BENZONATATE 200 MG ORAL CAPSULE 1 three times a day as neede d for cough BENZONATATE 01467642097 No Longer Active Nitza Brewer lips Scribe Active VITAMIN D3 77795 UNIT ORAL CAPSULE 1 pill Week x 4 mo nt for vitamin D deficiency/osteoporosis CHOLECALCIFEROL 34835182447 N o Longer Active Layla Garcia Active BACTROBAN 2 % EXTERNAL CREAM Apply to affected area BID for up to 10 days MUPIROCIN CALCIUM 63325509380 No Longer Active Ike Deluna MD Active CIPRO 500 MG ORAL TABLET 1 tablet by mouth twice daily CIPROFLOXACIN HCL 45690520855 No Longer Active Adriana Bender LPN Active AUGMENTIN 875-125 MG ORAL TABLET 1 po BID x 10 days 18/04/06 AMOXICILLIN-POT CLAVULANATE 96288411522 No Longer Active Adriana Bender LPN Active MODAFINIL 200 MG ORAL TABLET Take 1/2 tab po in the am and 1 /2 tab po at noon MODAFINIL 95723423850 Active Adele Feldman LPN Active CYCLOBENZAPRINE HCL 10 MG ORAL TABLET Take 1 tab TID PRN for mus triston pain CYCLOBENZAPRINE HCL 99441964434 No Longer Active Bertrand Patel DO Active TESSALON PERLES 100 MG ORAL CAPSULE 1 tablet by mouth 3 times da juan pablo BENZONATATE 66524397326 No Longer Active Bertrand Patel DO Ac tive NEBULIZER use as directed NEBULIZERS 48794337554 No Longer Active Bertrand Patel DO Active ALBUTEROL SULFATE (2.5 MG/3ML) 0.083% INHALATION NEBUL IZATION SOLUTION one vial per nebulizer every 4-6 hours as needed ALBUTERO L SULFATE 98850049227 No Longer Active Bertrand Patel DO Active SYMBICORT 160-4.5 MCG/ACT INHALATION AEROSOL 2 puffs BID 9 BUDESONIDE-FORMOTEROL FUMARATE 46409312690 No Longer Active Bertrand Patel DO Active PREDNISONE 20 MG ORAL TABLET take 3 tabs daily for 3 d ays, 2 tabs daily for 3 days, 1 tab daily for 3 days, 1/2 tab daily for 3 days 08/02 PREDNISONE 24332515902 No Longer Active Silvia Arell AUTO SERVICE INSTRUCTOR Active AZITHROMYCIN 250 MG ORAL TABLET Take 2 tabs po today then 1 tab po daily AZITHROMYCIN 51421304204 No Longer Active Silvia Arell AUTO SERVICE INSTRUCTOR Active AUGMENTIN 875-125 MG ORAL TABLET 1 po BID x 10 days 19/07/13 AMOXICILLIN-POT CLAVULANATE 41140788689 No Longer Active Adriana Bender LPN Active CHEWABLE CALCIUM 500-200-40 MG-UNT-MCG ORAL TABLET CHEWABLE 1 chew tab bid CALCIUM-VITAMIN D-VITAMIN K 88971655624 Active Silvia Are ll AUTO SERVICE INSTRUCTOR Active EQ COMPLETE MULTIVIT ADULT 50+ ORAL TABLET 1 tab po bid MULTIPLE VITAMINS-MINERALS 19879675877 Active Silvia Arell AUTO SERVICE INSTRUCTOR Active HYDROCODONE-ACETAMINOPHEN 7.5-325 MG ORAL TABLET TAKE ONE TAB EVERY 6 HOURS BY MOUTH NEEDED FOR PAIN HYDROCODONE-ACETAMINOPHEN 004 43303516 Active Bertrand Patel DO Active LORTAB 7.5-500 MG ORAL TABLET take one po Q6 hours 201 09/12/01 HYDROCODONE-ACETAMINOPHEN 64474372309 No Longer Active Nirmal Robbins RN Active [facility] MELATONIN 5-10 MG ORAL TABLET EXTENDED RELEASE Jair e one by mouth daily at bedtime MELATONIN-PYRIDOXINE 50818914351 No Longer Acti ve Bertrand Patel DO Active VITAMIN E 200 UNIT ORAL CAPSULE 1 cap po qd VITAM IN E 92037773821 No Longer Active Bertrand Patel DO Active B-12 1000 MCG ORAL CAPSULE 1 tab daily CYANOCOB ALAMIN 66151292703 No Longer Active Bertrand Patel DO Active METFORMIN HCL 500 MG ORAL TABLET 1 bid METFOR MIN HCL 29119703130 No Longer Active Bertrand W Jorge DO Active FUROSEMIDE 20 MG ORAL TABLET 1 pill by mouth daily if needed for edema FUROSEMIDE 92520136552 No Longer Active Bertrand Patel DO Active PRAVASTATIN SODIUM 20 MG ORAL TABLET 1 tablet by mouth daily at bedtime PRAVASTATIN SODIUM 25032292406 No Longer Active Bertrand Patel DO Active AUGMENTIN 875-125 MG ORAL TABLET 1 pill by mouth twice daily 201 09/10/00 AMOXICILLIN-POT CLAVULANATE 48885104545 No Longer Active Yoli Mercado MD PhD Active LEVAQUIN 500 MG ORAL TABLET 1 pill by mouth daily 2013 LEVOFLOXACIN 84629565345 No Longer Active Yoli Mercado MD PhD Acti ve AMLODIPINE BESYLATE 5 MG ORAL TABLET 1 tablet by mouth daily for blood pressure AMLODIPINE BESYLATE 50689249505 Active Bertrand Patel DO Active MICARDIS 80 MG ORAL TABLET 1 tablet daily for blood pressure 07/30 TELMISARTAN 75607525295 Active Bertrand Patel DO Active MICARDIS HCT 80-12.5 MG ORAL TABLET 1 qd TELMISARTAN-HCTZ 90506601613 No Longer Active Bertrand Patel DO Active CINNAMON ALPHA LIPOIC AC CMPLX CAPSULE by mouth twice a day in AM by mouth twice a day in PM ALPHA LIPOIC CNRC-PS-XSIGRQYM CA PS 14213185088 No Longer Active Bertrand Patel DO Active AZITHROMYCIN 500 MG INTRAVENOUS SOLUTION RECONSTITUTED 1 po q da y AZITHROMYCIN 71921230524 No Longer Active Bertrand Patel DO A ctive CYMBALTA 30 MG ORAL CAPSULE DELAYED RELEASE PARTICLES 1 cap by mouth daily DULOXETINE HCL 11092432613 No Longer Active Bertrand marquez DO Active CYMBALTA 60 MG ORAL CAPSULE DELAYED RELEASE PARTICLES 1 cap by mouth daily DULOXETINE HCL 37179341570 Active Bertrand Patel DO Active WELLBUTRIN 75 MG ORAL TABLET 2 times daily BUPR OPION HCL 84396883340 No Longer Active Bertrand Patel DO Active PROAIR HFA 108 (90 Base) MCG/ACT INHALATION AEROSOL SO LUTION take one to two puffs po Q4-6 hour prn cough and shortness of breath ALBUTEROL SULFATE 44121339104 Active Silvia Vazquez APRN Active AZITHROMYCIN 250 MG ORAL TABLET take 2 po today then take 1 po days 2-5 AZITHROMYCIN 10497286985 No Longer Active Adolfo traore PA Active PERMETHRIN 5 % EXTERNAL CREAM apply neck to toes tonig ht and then rinse off in morning. repeat at 7 days PERMETHRIN 07921098272 No Longer Active Adolfo OSORIO Active AMOXICILLIN 500 MG ORAL CAPSULE 2 po BID x 10 days 201 07/15/00 AMOXICILLIN 41059724145 No Longer Active Yoli Mercado MD PhD Acti ve ALPRAZOLAM 0.5 MG ORAL TABLET 1 tab by mouth tid ALPRAZOLAM 35551414138 Active Bertrand Patel DO Active INSUPEN ULTRAFIN 31G X 6 MM USE DIRECTED INSULIN PEN NEEDLE 21340010280 No Longer Active Bertrand Patel DO Active TRANSDERM-SCOP (1.5 MG) 1 MG/3DAYS TRANSDERMAL PATCH 7 2 HOUR 1 patch applied behind ear q 3 day SCOPOLAMINE BASE 20568201353 No Lo nger Active Bertrand Patel DO Active MACRODANTIN 100 MG ORAL CAPSULE one p.o. b.i.d. x2 weeks NITROFURANTOIN MACROCRYSTAL 78216106047 No Longer Active Bertrand Patel DO Active MACRODANTIN 100 MG ORAL CAPSULE one p.o. b.i.d. x2 weeks MACRODANTIN 100 MG ORAL CAPSULE 5655112 NITROFURANTOIN MACROCRYSTAL Inactive TRANSDERM-SCOP (1.5 MG) 1 [...] days PERMETHRIN 5 % EXTER NAL CREAM 593858 PERMETHRIN Inactive WELLBUTRIN 75 MG ORAL TABLET 2 times daily WELLBUTRIN 75 MG ORAL TABLET BUPROPION HCL Inactive CYMBALTA 30 MG ORAL CAPSULE DELAYED RELEASE PARTICLES 1 cap by mouth daily CYMBALTA 30 MG ORAL CAPSULE DELAYED RELE ASE PARTICLES 443996 DULOXETINE HCL Inactive AZITHROMYCIN 500 MG INTRAVENOUS SOLUTION RECONSTITUTED 1 po q da y AZITHROMYCIN 500 MG INTRAVENOUS SOLUTION RECONSTITUTED 66135 049091 AZITHROMYCIN Inactive CINNAMON ALPHA LIPOIC AC CMPLX CAPSULE by mouth twice a day in AM by mouth twice a day in PM CINNAMON ALPHA LIPOIC AC CMPLX CAPSULE ALPHA LIPOIC TDEI-[id number] CAPS Inactive MICARDIS HCT 80-12.5 MG ORAL TABLET 1 qd 07/30 MICARDIS HCT 80-12.5 MG ORAL TABLET 928278 TELMISARTAN-HCTZ Inactive PRAVASTATIN SODIUM 20 MG ORAL TABLET 1 tablet by mouth daily at bedtime PRAVASTATIN SODIUM 20 MG ORAL TABLET 278880 PRAVASTATIN SODIUM Inactive FUROSEMIDE 20 MG ORAL TABLET 1 pill by mouth daily if needed for edema FUROSEMIDE 20 MG ORAL TABLET 318007 FUROSEMIDE Inactive METFORMIN HCL 500 MG ORAL TABLET 1 bid METFORMIN HCL 500 MG ORAL TABLET 775382 METFORMIN HCL Inactive B-12 1000 MCG ORAL CAPSULE 1 tab daily B -12 1000 MCG ORAL CAPSULE CYANOCOBALAMIN Inactive VITAMIN E 200 UNIT ORAL CAPSULE 1 cap po qd 1 VITAMIN E 200 UNIT ORAL CAPSULE 0211899 VITAMIN E Inactive [facility] MELATONIN 5-10 MG [...] po daily AZITHROMYCIN 250 MG ORAL TABLET 973210 AZITHROMY BERNARDO Inactive SYMBICORT 160-4.5 MCG/ACT INHALATION AEROSOL 2 puffs BID 9 SYMBICORT 160-4.5 MCG/ACT INHALATION AEROSOL BUDESONIDE-FORM OTEROL FUMARATE Inactive ALBUTEROL SULFATE (2.5 MG/3ML) 0.083% INHALATION NEBUL IZATION SOLUTION one vial per nebulizer every 4-6 hours as needed ALBUTEROL SULFATE (2.5 MG/3ML) 0.083% INHALATION NEBULIZATION SOLUTION 520882 ALBUTER OL SULFATE Inactive NEBULIZER use as directed NEBULIZER NEBULI ZERS Inactive TESSALON PERLES 100 MG ORAL CAPSULE 1 tablet by mouth 3 times da juan pablo TESSALON PERLES 100 MG ORAL CAPSULE 791407 BENZONATATE Inactive CYCLOBENZAPRINE HCL 10 MG ORAL TABLET Take 1 tab TID PRN for mus triston pain CYCLOBENZAPRINE HCL 10 MG ORAL TABLET 910207 CYCLOBENZA ANUJA HCL Inactive AUGMENTIN 875-125 MG ORAL TABLET 1 po BID x 10 days 20 18/04/06 AUGMENTIN 875-125 MG ORAL TABLET 898222 AMOXICILLIN-POT CLAVULANATE Inactive BACTROBAN 2 % EXTERNAL CREAM Apply to affected area BID for up to 10 days BACTROBAN 2 % EXTERNAL CREAM 975220 MUPIROCIN CA LCIUM Inactive VITAMIN D3 85210 UNIT ORAL CAPSULE 1 pill Week x 4 mo nt for vitamin D deficiency/osteoporosis VITAMIN D3 61385 UNIT ORAL CAPSULE CHOLECALCIFEROL Inactive BENZONATATE 200 MG ORAL CAPSULE 1 three times a day as neede d for cough BENZONATATE 200 MG ORAL CAPSULE 796901 BENZONATA TE Inactive ZITHROMAX Z-MARTIN 250 MG ORAL TABLET 2 today and then 1 daily for 4 days ZITHROMAX Z-MARTIN 250 MG ORAL TABLET 021358 AZITHR OMYCIN Inactive ADDERALL 10 MG ORAL TABLET 1 tab twice daily 2 ADDERALL 10 MG ORAL TABLET 045934 AMPHETAMINE-DEXTROAMPHETAMINE Inactive AMOXICILLIN 500 MG ORAL CAPSULE 2 po BID x 10 days 201 07/15/00 AMOXICILLIN 500 MG ORAL CAPSULE 586252 AMOXICILLIN Inactive AZITHROMYCIN 250 MG ORAL TABLET take 2 po today then take 1 po days 2-5 AZITHROMYCIN 250 MG ORAL TABLET 594521 AZITHROMY BERNARDO Inactive LEVAQUIN 500 MG ORAL TABLET 1 pill by mouth daily 2013 LEVAQUIN 500 MG ORAL TABLET 713517 LEVOFLOXACIN Inactive AUGMENTIN 875-125 MG ORAL TABLET 1 pill by mouth twice daily 201 09/10/00 AUGMENTIN 875-125 MG ORAL TABLET 651933 AMOXICILLIN-POT CLAVULANATE Inactive AUGMENTIN 875-125 MG ORAL TABLET 1 po BID x 10 days 20 19/07/13 AUGMENTIN 875-125 MG ORAL TABLET 469825 AMOXICILLIN-POT CLAVULANATE Inactive PREDNISONE 20 MG ORAL TABLET take 3 tabs daily for 3 d ays, 2 tabs daily for 3 days, 1 tab daily for 3 days, 1/2 tab daily for 3 days 08/02 PREDNISONE 20 MG ORAL TABLET 064914 PREDNISONE Inactive CIPRO 500 MG ORAL TABLET 1 tablet by mouth twice daily CIPRO 500 MG ORAL TABLET 466582 CIPROFLOXACIN HCL Inactive Vital Signs Date Name [...] HGBA1C - Chemistry sodium, serum 143 mmol/L 351-029 1644/01/02 carbon dioxide, venous blood 31.7 mmol/L 21.0-32 [...] 0-19 Encounters Code Encounter Date Provider Facility CPT-59606 Level 3 Est. Patient 11:40:23 CDT Bertrand marquez [facility] CPT-24477 Level 4 Est. Patient 15:33:35 SCIENCE FACULTY MEMBER Bertrand marquez [facility] CPT-10681 Level 4 Est. Patient 12:31:54 CDT Bertrand marquez [facility] CPT-46058 Level 3 Est. Patient 11:27:00 SCIENCE FACULTY MEMBER Ike Deluna MD [facility] CPT-01717 Level 3 Est. Patient 08:50:57 SCIENCE FACULTY MEMBER Silvia Are ll [facility] CPT-52819 Level 3 Est. Patient 10:04:13 CDT Bertrand marquez [facility] CPT-13677 Level 4 Est. Patient 16:02:10 SCIENCE FACULTY MEMBER Silvia Are ll [facility] CPT-89173 Level 3 Est. Patient 13:04:54 SCIENCE FACULTY MEMBER Silvia Are ll [facility] CPT-45542 Level 3 Est. Patient 12:56:37 CDT Bertrand marquez [facility] CPT-27762 Level 3 Est. Patient 19:12:03 CDT Yoli tolbert MD PhD [facility] CPT-78887 Level 3 Est. Patient 14:36:01 CDT Yoli tolbert MD PhD [facility] CPT-95060 Level 2 Est. Patient 08:00:22 CDT Jcarlos dc MD [facility] CPT-93491 Level 3 Est. Patient 19:06:55 CDT Bertrand marquez [facility] CPT-38426 Level 3 Est. Patient 10:08:23 SCIENCE FACULTY MEMBER Bertrand marquez [facility] CPT-80523 Level 3 Est. Patient 16:37:54 SCIENCE FACULTY MEMBER Bertrand marquez [facility] CPT-82759 Level 3 Est. Patient 11:31:59 SCIENCE FACULTY MEMBER Bertrand marquez [facility] CPT-79455 Level 3 Est. Patient 10:20:08 CDT Adolfo villasenor [facility] CPT-10695 Level 3 Est. Patient 13:45:20 CDT Sanket buckley [facility] CPT-93378 Level 3 Est. Patient 12:51:06 CDT Adolfo villasenor [facility] CPT-52003 Level 3 Est. Patient 11:22:51 SCIENCE FACULTY MEMBER Yoli tolbert MD PhD [facility] CPT-18014 Level 3 Est. Patient 13:33:19 CDT Bertrand marquez [facility] Procedures Code Procedure Name Date Entry Date Standard Desc ription CPT-23704 Wound Culture - LAB USE ONLY 15:45:25 CDT 2 CPT-13540 Venipuncture Draw Fee 10:23:01 CDT CPT-J0696 Rocephin 1000 mg (Ceftriaxone) 16:20:30 SCIENCE [employer]ACULTY MEMBER CPT-14137 Abx/Therapy Injection 16:20:29 SCIENCE FACULTY MEMBER CPT-J0696 Rocephin 1gm Inj Solr 15:51:59 SCIENCE [employer]ACULTY MEMBER CPT-72184 Chest 2V Frontal and Lat 15:20:28 SCIENCE [employer]ACULTY MEMBER 07/22 CPT-69853 Breathing Tx 14:51:55 SCI[employer]AC[employer]Y MEMBER CPT-99213 Breathing Tx 09:57:16 SCI[employer]Y MEMBER CPT-63986 Knee comp 4/> V 11:58:06 SCIENCE FACULTY MEMBER
--- OUTSIDE RECORDS SUMMARY | 2019-11-13 10:01 | XMS REPORT | Clinical Summary ---
Author Author Admin, Enrique Adamson Organization [employer] Address Unknown Phone Unavailable Allergies, Adverse Reactions, [...] 09/09/28 EDEMA LEG ICD-782.3 Inactive Adele Feldman CORK WIRER 201 01/01/02 SHORTNESS OF BREATH ICD-786.05 Inactive Yoli Mercado MD PhD RIB PAIN, RIGHT SIDED ICD-786.50 Inactive Yoli Mercado MD PhD KNEE PAIN, RIGHT ICD-719.46 Inactive Adele chiu CORK WIRER Knee pain, left ICD-719.46 Inactive Adele damico CORK WIRER Pharyngitis-Acute ICD-462 Inactive Bertrand Redmond DO Polyuria ICD-788.42 Inactive Yoli Mercado MD P hD Cellulitis, leg, right ICD-682.6 Inactive Yuki Deluna MD Foreign body, ear ICD-931 Inactive Yoli salazar MD PhD Fatigue ICD-780.79 Inactive Ike Deluna MD 201 12/01/06 Headache ICD-784.0 Inactive Adele Gaston ARTHUR 2017 Cough ICD-786.2 Inactive Adele Feldman CORK WIRER 06/04 SINUSITIS, ACUTE ICD-461.9 Inactive Ike lange MD Fatigue ICD-780.79 Inactive Adele Feldman CORK WIRER 2017 Bronchitis acute with bronchospasm ICD-466.0 I nactive Adele Feldman CORK WIRER Animal bite ICD-919.8 Inactive Adele Feldman LP N Mycoplasma infection ICD-041.81 Inactive Anit a Feldman CORK WIRER Amenorrhea, secondary ICD-626.0 Inactive Ani ta Feldman CORK WIRER Medication List Medication Instructions Start Date Stop Date Generic Name NDC Status Provider Patient Instruction LEVAQUIN 500 MG ORAL TABLET 1 tablet by mouth daily LEVOFLOXACIN 75543803624 Active Bertrnad Patel DO Active ADDERALL 10 MG ORAL TABLET 1 tab twice daily 2 AMPHETAMINE-DEXTROAMPHETAMINE 92245126000 No Longer Active Nitza Phi llips Scribe Active ZITHROMAX Z-MARTIN 250 MG ORAL TABLET 2 today and then 1 daily for 4 days AZITHROMYCIN 82814475421 No Longer Active Nitza Osman lips Scribe Active BENZONATATE 200 MG ORAL CAPSULE 1 three times a day as neede d for cough BENZONATATE 94758308492 No Longer Active Nitza Brewer lips Scribe Active VITAMIN D3 26730 UNIT ORAL CAPSULE 1 pill Week x 4 mo nt for vitamin D deficiency/osteoporosis CHOLECALCIFEROL 24482986777 N o Longer Active Layla Garcia Active BACTROBAN 2 % EXTERNAL CREAM Apply to affected area BID for up to 10 days MUPIROCIN CALCIUM 64419340404 No Longer Active Ike Deluna MD Active CIPRO 500 MG ORAL TABLET 1 tablet by mouth twice daily CIPROFLOXACIN HCL 16864811592 No Longer Active Adriana Bender LPN Active AUGMENTIN 875-125 MG ORAL TABLET 1 po BID x 10 days 18/04/06 AMOXICILLIN-POT CLAVULANATE 75970486715 No Longer Active Adriana Bender LPN Active MODAFINIL 200 MG ORAL TABLET Take 1/2 tab po in the am and 1 /2 tab po at noon MODAFINIL 68771904145 Active Bertrand Patel DO Ac tive CYCLOBENZAPRINE HCL 10 MG ORAL TABLET Take 1 tab TID PRN for mus triston pain CYCLOBENZAPRINE HCL 99336462237 No Longer Active Bertrand Patel DO Active TESSALON PERLES 100 MG ORAL CAPSULE 1 tablet by mouth 3 times da juan pablo BENZONATATE 48564460002 No Longer Active Bertrand Patel DO Ac tive NEBULIZER use as directed NEBULIZERS 85063155344 No Longer Active Bertrand Patel DO Active ALBUTEROL SULFATE (2.5 MG/3ML) 0.083% INHALATION NEBUL IZATION SOLUTION one vial per nebulizer every 4-6 hours as needed ALBUTERO L SULFATE 42865726252 No Longer Active Bertrand Patel DO Active SYMBICORT 160-4.5 MCG/ACT INHALATION AEROSOL 2 puffs BID 9 BUDESONIDE-FORMOTEROL FUMARATE 09135528112 No Longer Active Bertrand Patel DO Active PREDNISONE 20 MG ORAL TABLET take 3 tabs daily for 3 d ays, 2 tabs daily for 3 days, 1 tab daily for 3 days, 1/2 tab daily for 3 days 08/02 PREDNISONE 51662709682 No Longer Active Silvia Arell PAYABLE 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 Active AZITHROMYCIN 250 MG ORAL TABLET Take 2 tabs po today then 1 tab po daily AZITHROMYCIN 01356916985 No Longer Active Silvia Arell PAYABLE 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 Active AUGMENTIN 875-125 MG ORAL TABLET 1 po BID x 10 days 19/07/13 AMOXICILLIN-POT CLAVULANATE 23080350289 No Longer Active Adriana Bender LPN Active CHEWABLE CALCIUM 500-200-40 MG-UNT-MCG ORAL TABLET CHEWABLE 1 chew tab bid CALCIUM-VITAMIN D-VITAMIN K 65164285674 Active Silvia Are ll PAYABLE 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 Active EQ COMPLETE MULTIVIT ADULT 50+ ORAL TABLET 1 tab po bid MULTIPLE VITAMINS-MINERALS 38337738930 Active Silvia Arell PAYABLE 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 Active HYDROCODONE-ACETAMINOPHEN 7.5-325 MG ORAL TABLET TAKE ONE TAB EVERY 6 HOURS BY MOUTH NEEDED FOR PAIN HYDROCODONE-ACETAMINOPHEN 004 21238987 Active Bertrand Patel DO Active LORTAB 7.5-500 MG ORAL TABLET take one po Q6 hours 201 09/12/01 HYDROCODONE-ACETAMINOPHEN 00380175801 No Longer Active Nirmal Robbins RN Active [facility] MELATONIN 5-10 MG ORAL TABLET EXTENDED RELEASE Jair e one by mouth daily at bedtime MELATONIN-PYRIDOXINE 02193355168 No Longer Acti ve Bertrand Patel DO Active VITAMIN E 200 UNIT ORAL CAPSULE 1 cap po qd VITAM IN E 59991329464 No Longer Active Bertrand Patel DO Active B-12 1000 MCG ORAL CAPSULE 1 tab daily CYANOCOB ALAMIN 84735534312 No Longer Active Bertrand Patel DO Active METFORMIN HCL 500 MG ORAL TABLET 1 bid METFOR MIN HCL 51181538927 No Longer Active Bertrand W Jorge DO Active FUROSEMIDE 20 MG ORAL TABLET 1 pill by mouth daily if needed for edema FUROSEMIDE 43747505243 No Longer Active Bertrand Patel DO Active PRAVASTATIN SODIUM 20 MG ORAL TABLET 1 tablet by mouth daily at bedtime PRAVASTATIN SODIUM 17337521881 No Longer Active Bertrand Patel DO Active AUGMENTIN 875-125 MG ORAL TABLET 1 pill by mouth twice daily 201 09/10/00 AMOXICILLIN-POT CLAVULANATE 23242372280 No Longer Active Yoli Mercado MD PhD Active LEVAQUIN 500 MG ORAL TABLET 1 pill by mouth daily 2013 LEVOFLOXACIN 99286173971 No Longer Active Yoli Mercado MD PhD Acti ve AMLODIPINE BESYLATE 5 MG ORAL TABLET 1 tablet by mouth daily for blood pressure AMLODIPINE BESYLATE 42276030433 Active Bertrand Patel DO Active MICARDIS 80 MG ORAL TABLET 1 tablet daily for blood pressure 07/30 TELMISARTAN 15282972327 Active Bertrand Patel DO Active MICARDIS HCT 80-12.5 MG ORAL TABLET 1 qd TELMISARTAN-HCTZ 59526496914 No Longer Active Bertrand Patel DO Active CINNAMON ALPHA LIPOIC AC CMPLX CAPSULE by mouth twice a day in AM by mouth twice a day in PM ALPHA LIPOIC [id number] CA PS 87277396645 No Longer Active Bertrand Patel DO Active AZITHROMYCIN 500 MG INTRAVENOUS SOLUTION RECONSTITUTED 1 po q da y AZITHROMYCIN 05193002217 No Longer Active Bertrand Patel DO A ctive CYMBALTA 30 MG ORAL CAPSULE DELAYED RELEASE PARTICLES 1 cap by mouth daily DULOXETINE HCL 71785960241 No Longer Active Bertrand marquez DO Active CYMBALTA 60 MG ORAL CAPSULE DELAYED RELEASE PARTICLES 1 cap by mouth daily DULOXETINE HCL 10752677823 Active Bertrand Patel DO Active WELLBUTRIN 75 MG ORAL TABLET 2 times daily BUPR OPION HCL 58063813218 No Longer Active Bertrand Patel DO Active PROAIR HFA 108 (90 Base) MCG/ACT INHALATION AEROSOL SO LUTION take one to two puffs po Q4-6 hour prn cough and shortness of breath ALBUTEROL SULFATE 79344441672 Active Silvia Vazquez APRN Active AZITHROMYCIN 250 MG ORAL TABLET take 2 po today then take 1 po days 2-5 AZITHROMYCIN 47674242843 No Longer Active Adolfo OSORIO Active PERMETHRIN 5 % EXTERNAL CREAM apply neck to toes tonig ht and then rinse off in morning. repeat at 7 days PERMETHRIN 88238987018 No Longer Active Adolfo OSORIO Active AMOXICILLIN 500 MG ORAL CAPSULE 2 po BID x 10 days 201 07/15/00 AMOXICILLIN 06031312395 No Longer Active Yoli Mercado MD PhD Acti ve ALPRAZOLAM 0.5 MG ORAL TABLET 1 tab by mouth tid ALPRAZOLAM 79219902552 Active Bertrand Patel DO Active INSUPEN ULTRAFIN 31G X 6 MM USE DIRECTED INSULIN PEN NEEDLE 36059626624 No Longer Active Bertrand Patel DO Active TRANSDERM-SCOP (1.5 MG) 1 MG/3DAYS TRANSDERMAL PATCH 7 2 HOUR 1 patch applied behind ear q 3 day SCOPOLAMINE BASE 94817156999 No Lo nger Active Bertrand Patel DO Active MACRODANTIN 100 MG ORAL CAPSULE one p.o. b.i.d. x2 weeks NITROFURANTOIN MACROCRYSTAL 36898047793 No Longer Active Bertrand Patel DO Active CINNAMON ALPHA LIPOIC AC CMPLX CAPSULE by mouth twice a day in AM by mouth twice a day in PM CINNAMON ALPHA LIPOIC AC CMPLX CAPSULE ALPHA LIPOIC [id number] CAPS Inactive ALBUTEROL SULFATE (2.5 MG/3ML) 0.083% INHALATION NEBUL IZATION SOLUTION one vial per nebulizer every 4-6 hours as needed ALBUTEROL SULFATE (2.5 MG/3ML) 0.083% INHALATION NEBULIZATION SOLUTION 475476 ALBUTER OL SULFATE Inactive AMOXICILLIN 500 MG ORAL CAPSULE 2 po BID x 10 days 201 07/15/00 AMOXICILLIN 500 MG ORAL CAPSULE 242681 AMOXICILLIN Inactive CIPRO 500 MG ORAL TABLET 1 tablet by mouth twice daily CIPRO 500 MG ORAL TABLET 347986 CIPROFLOXACIN HCL Inactive CYCLOBENZAPRINE HCL 10 MG ORAL TABLET Take 1 tab TID PRN for mus triston pain CYCLOBENZAPRINE HCL 10 MG ORAL TABLET 647830 CYCLOBENZA ANUJA HCL Inactive FUROSEMIDE 20 MG ORAL TABLET 1 pill by mouth daily if needed for edema FUROSEMIDE 20 MG ORAL TABLET 506587 FUROSEMIDE Inactive MACRODANTIN 100 MG ORAL CAPSULE one p.o. b.i.d. x2 weeks MACRODANTIN 100 MG ORAL CAPSULE 9260879 NITROFURANTOIN MACROCRYSTAL Inactive PREDNISONE 20 MG ORAL TABLET take 3 tabs daily for 3 d ays, 2 tabs daily for 3 days, 1 tab daily for 3 days, 1/2 tab daily for 3 days 08/02 PREDNISONE 20 MG ORAL TABLET 185205 PREDNISONE Inactive VITAMIN E 200 UNIT ORAL CAPSULE 1 cap po qd 1 VITAMIN E 200 UNIT ORAL CAPSULE 7018475 VITAMIN E Inactive WELLBUTRIN 75 MG ORAL TABLET 2 times daily WELLBUTRIN 75 MG ORAL TABLET BUPROPION HCL Inactive METFORMIN HCL 500 MG ORAL TABLET 1 bid METFORMIN HCL 500 MG ORAL TABLET 562314 METFORMIN HCL Inactive PERMETHRIN 5 % EXTERNAL CREAM apply neck to toes tonig ht and then rinse off in morning. repeat at 7 days PERMETHRIN 5 % EXTER NAL CREAM 325744 PERMETHRIN Inactive PRAVASTATIN SODIUM 20 MG ORAL TABLET 1 tablet by mouth daily at bedtime PRAVASTATIN SODIUM 20 MG ORAL TABLET 560763 PRAVASTATIN SODIUM Inactive TESSALON PERLES 100 MG ORAL CAPSULE 1 tablet by mouth 3 times da juan pablo TESSALON PERLES 100 MG ORAL CAPSULE 275617 BENZONATATE Inactive LORTAB 7.5-500 MG ORAL TABLET take one po Q6 hours 201 09/12/01 LORTAB 7.5-500 MG ORAL TABLET HYDROCODONE-ACETAMINOPHEN Inactive AUGMENTIN 875-125 MG ORAL TABLET 1 po BID x 10 days 20 18/04/06 AUGMENTIN 875-125 MG ORAL TABLET 847162 AMOXICILLIN-POT CLAVULANATE Inactive AUGMENTIN 875-125 MG ORAL TABLET 1 pill by mouth twice daily 201 09/10/00 AUGMENTIN 875-125 MG ORAL TABLET 348565 AMOXICILLIN-POT CLAVULANATE Inactive AUGMENTIN 875-125 MG ORAL TABLET 1 po BID x 10 days 20 19/07/13 AUGMENTIN 875-125 MG ORAL TABLET 396972 AMOXICILLIN-POT CLAVULANATE Inactive NEBULIZER use as directed NEBULIZER NEBULI ZERS Inactive LEVAQUIN 500 MG ORAL TABLET 1 pill by mouth daily 2013 LEVAQUIN 500 MG ORAL TABLET 068914 LEVOFLOXACIN Inactive AZITHROMYCIN 250 MG ORAL TABLET take 2 po today then take 1 po days 2-5 AZITHROMYCIN 250 MG ORAL TABLET 825722 AZITHROMY BERNARDO Inactive AZITHROMYCIN 250 MG ORAL TABLET Take 2 tabs po today then 1 tab po daily AZITHROMYCIN 250 MG ORAL TABLET 930472 AZITHROMY BERNARDO Inactive AZITHROMYCIN 500 MG INTRAVENOUS SOLUTION RECONSTITUTED 1 po q da y AZITHROMYCIN 500 MG INTRAVENOUS SOLUTION RECONSTITUTED 28380 705534 AZITHROMYCIN Inactive BACTROBAN 2 % EXTERNAL CREAM Apply to affected area BID for up to 10 days BACTROBAN 2 % EXTERNAL CREAM 891126 MUPIROCIN CA LCIUM Inactive ADDERALL 10 MG ORAL TABLET 1 tab twice daily 2 ADDERALL 10 MG ORAL TABLET 276309 AMPHETAMINE-DEXTROAMPHETAMINE Inactive BENZONATATE 200 MG ORAL CAPSULE 1 three times a day as neede d for cough BENZONATATE 200 MG ORAL CAPSULE 010336 BENZONATA TE Inactive MICARDIS HCT 80-12.5 MG ORAL TABLET 1 qd 07/30 MICARDIS HCT 80-12.5 MG ORAL TABLET 707386 TELMISARTAN-HCTZ Inactive ZITHROMAX Z-MARTIN 250 MG ORAL TABLET 2 today and then 1 daily for 4 days ZITHROMAX Z-MARTIN 250 MG ORAL TABLET 401285 AZITHR OMYCIN Inactive CYMBALTA 30 MG ORAL CAPSULE DELAYED RELEASE PARTICLES 1 cap by mouth daily CYMBALTA 30 MG ORAL CAPSULE DELAYED RELE ASE PARTICLES 874326 DULOXETINE HCL Inactive SYMBICORT 160-4.5 MCG/ACT INHALATION AEROSOL 2 puffs BID SYMBICORT 160-4.5 MCG/ACT INHALATION AEROSOL BUDESONIDE-FORM OTEROL FUMARATE Inactive INSUPEN ULTRAFIN 31G X 6 MM USE DIRECTED INSUPEN ULTRAFIN 31G X 6 MM INSULIN PEN NEEDLE Inactive VITAMIN D3 31928 UNIT ORAL CAPSULE 1 pill Week x 4 mo nths for vitamin D deficiency/osteoporosis VITAMIN D3 73566 UNIT ORAL CAPSULE CHOLECALCIFEROL Inactive B-12 1000 MCG ORAL CAPSULE 1 tab daily B -12 1000 MCG ORAL CAPSULE CYANOCOBALAMIN Inactive [facility] MELATONIN 5-10 MG ORAL TABLET EXTENDED RELEASE Jair e one by mouth daily at bedtime [facility] MELATONIN 5-10 M G ORAL TABLET EXTENDED RELEASE MELATONIN-PYRIDOXINE Inactive TRANSDERM-SCOP (1.5 MG) 1 MG/3DAYS TRANSDERMAL PATCH 7 2 HOUR 1 patch applied behind ear q 3 day TRANSDERM-SCOP (1.5 MG) 1 MG/3DAYS TRANSDERMAL PATCH 72 HOUR SCOPOLAMINE BASE Inactive Vital Signs Date Name Value Unit [...] HGBA1C - Chemistry sodium, serum 143 mmol/L 023-640 7244/01/02 carbon dioxide, venous blood 31.7 mmol/L 21.0-32 [...] 0-19 Encounters Code Encounter Date Provider Facility CPT-61181 Level 3 Est. Patient 11:40:23 CDT Bertrand marquez [facility] CPT-12747 Level 4 Est. Patient 15:33:35 SHIPYARD SUPERVISOR Bertrand marquez [facility] CPT-22665 Level 4 Est. Patient 12:31:54 CDT Bertrand marquez [facility] CPT-29791 Level 3 Est. Patient 11:27:00 SHIPYARD SUPERVISOR Ike Deluna MD [facility] CPT-70949 Level 3 Est. Patient 08:50:57 SHIPYARD SUPERVISOR Silvia Are ll [facility] CPT-41428 Level 3 Est. Patient 10:04:13 CDT Bertrand marquez [facility] CPT-39962 Level 4 Est. Patient 16:02:10 SHIPYARD SUPERVISOR Silvia Are ll [facility]-91613 Level 3 Est. Patient 13:04:54 SHIPYARD SUPERVISOR Silvia Are ll [facility] CPT-23012 Level 3 Est. Patient 12:56:37 CDT Bertrand marquez [facility] CPT-10954 Level 3 Est. Patient 19:12:03 CDT Yoli tolbert MD PhD [facility] CPT-53147 Level 3 Est. Patient 14:36:01 CDT Yoli tolbert MD PhD [facility] CPT-70054 Level 2 Est. Patient 08:00:22 CDT Jcarlos dc MD [facility] CPT-28557 Level 3 Est. Patient 19:06:55 CDT Bertrand marquez [facility] CPT-13556 Level 3 Est. Patient 10:08:23 SHIPYARD SUPERVISOR Bertrand marquez [facility] CPT-58647 Level 3 Est. Patient 16:37:54 SHIPYARD SUPERVISOR Bertrand marquez [facility] CPT-76410 Level 3 Est. Patient 11:31:59 SHIPYARD SUPERVISOR Bertrand marquez [facility] CPT-70245 Level 3 Est. Patient 10:20:08 CDT Adolfo villasenor [facility] CPT-17700 Level 3 Est. Patient 13:45:20 CDT Sanket buckley [facility] CPT-97453 Level 3 Est. Patient 12:51:06 CDT Adolfo villasenor [facility] CPT-51298 Level 3 Est. Patient 11:22:51 SHIPYARD SUPERVISOR Yoli tolbert MD PhD [facility] CPT-17417 Level 3 Est. Patient 13:33:19 CDT Bertrand marquez [facility] Procedures Code Procedure Name Date Entry Date Standard Desc ription CPT-24680 Wound Culture - LAB USE ONLY 15:45:25 CDT 2 CPT-93292 Venipuncture Draw Fee 10:23:01 CDT CPT-J0696 Rocephin 1000 mg (Ceftriaxone) 16:20:30 SHIPYARD SUPERVISOR CPT-39085 Abx/Therapy Injection 16:20:29 SHIPYARD SUPERVISOR CPT-J0696 Rocephin 1gm Inj Solr 15:51:59 SHIPYARD SUPERVISOR CPT-49573 Chest 2V Frontal and Lat 15:20:28 SHIPYARD SUPERVISOR 07/22 CPT-40403 Breathing Tx 14:51:55 SHIPYARD SUPERVISOR CPT-09330 Breathing Tx 09:57:16 SHIPYARD SUPERVISOR CPT-73834 Knee comp 4/> V 11:58:06 SHIPYARD SUPERVISOR
--- OUTSIDE RECORDS SUMMARY | 2019-11-13 10:02 | XMS REPORT | Clinical Summary ---
Author Author Admin, Enrique Adamson Organization [employer] Address Unknown Phone Unavailable Allergies, Adverse Reactions, [...] Mercado MD PhD Cough EDEMA LEG 782.3 Active Adolfo OSORIO Edema SHORTNESS OF BREATH 786.05 Resolved Yoli Mercado MD PhD Shortness of breath RISK OF SLEEP APNEA V12.59 Active Adolfo OSORIO Other personal history of diseases of circulatory system RIB PAIN, RIGHT SIDED 786.50 Resolved Yoli Mercado MD PhD Unspecified chest pain KNEE PAIN, RIGHT 719.46 Active Adolfo OSORIO Pain in joint involving lower leg Knee pain, left 719.46 Active Bertrand Patel DO Pain in joint involving lower leg Diabetes, [...] MD Other malaise and fatigue Headache 784.0 Active Bertrand Patel DO He adache Cough 786.2 Active Silvia Arnold APRN Cough SINUSITIS, ACUTE 461.9 Resolved Ike Deluna MD Acute sinusitis, unspecified Fatigue 780.79 Active Silvia Arnold APRN Other malaise and fatigue Bronchitis acute with bronchospasm 466.0 Active 2 Silvia Arnold APRN Acute bronchitis Narcolepsy 347.00 Active Bertrand Patel DO Narcolepsy without cataplexy Animal bite 919.8 Active Silvia Arnold APRN Other and unspecified superficial injury of other, multiple, and unspecified sites, without mention of infection Mycoplasma infection 041.81 Active Ike bloom MD Mycoplasma infection in conditions classified elsewhere and of unspecified site Amenorrhea, secondary 626.0 Active Bertrand Patel DO Absence of menstruation Depression 311 Active Bertrand Patel DO Depressive disorder, not elsewhere classified HEALTH SCREENING ICD-V70.0 Inactive Yoli sabillon MD PhD SCABIES ICD-133.0 Inactive Yoli Mercado MD PhD 201 07/14/20 FH DIABETES ICD-V18.0 Inactive Yoli Mercado MD PhD 20 14/02/29 SINUSITIS, FRONTAL, ACUTE ICD-461.1 Inactive Yoli Mercado MD PhD COUGH ICD-786.2 Inactive Yoli Mercado MD PhD 201 09/09/28 SHORTNESS OF BREATH ICD-786.05 Inactive Yoli Mercado MD PhD RIB PAIN, RIGHT SIDED ICD-786.50 Inactive Yoli Mercado MD PhD Pharyngitis-Acute ICD-462 Inactive Bertrand Redmond DO Polyuria ICD-788.42 Inactive Yoli Mercado MD P Cellulitis, leg, right ICD-682.6 Inactive Yuki Deluna MD Foreign body, ear ICD-931 Inactive Yoli salazar MD PhD Fatigue ICD-780.79 Inactive Ike Deluna MD 201 12/01/06 SINUSITIS, ACUTE ICD-461.9 Inactive Ike lange MD Medication List Medication Instructions Start Date Stop Date Generic Name NDC Status Provider Patient Instruction VITAMIN D3 98267 UNIT CAPS 1 pill Week x 4 months for vitamin D deficiency/osteoporosis CHOLECALCIFEROL 59295435744 Active Darlyn Monzon Active BENZONATATE 200 MG ORAL CAPS 1 three times a day as needed for c ough BENZONATATE 87493771177 Active Ike Deluna MD Acti ve ZITHROMAX Z-MARTIN 250 MG TABS 2 today and then 1 daily for 4 days 201 12/01/06 AZITHROMYCIN 44898848712 Active Ike Deluna MD Active ADDERALL 10 MG ORAL TABS 1 tab twice daily AMPHETAMINE-DEXTROAMPHETAMINE 65378780769 Active Ike Deluna MD Active BACTROBAN 2 % CREAM Apply to affected area BID for up to 10 days MUPIROCIN CALCIUM 84840354247 No Longer Active Ike Deluna MD Active CIPRO 500 MG TAB 1 tablet by mouth twice daily CIPROFLOXACIN HCL 38190953931 No Longer Active Adriana Bender LPN Active AUGMENTIN 875-125 MG TAB 1 po BID x 10 days AMOXICILLIN- POT CLAVULANATE 88959101023 No Longer Active Adriana Bender LPN Active MODAFINIL 200 MG ORAL TABS Take 1/2 tab po in the am and 1/2 tab po at noon MODAFINIL 67407776984 Active Bertrand Patel DO Ac tive CYCLOBENZAPRINE HCL 10 MG TABS Take 1 tab TID PRN for muscle pain CYCLOBENZAPRINE HCL 73510501543 No Longer Active Bertrand Patel DO Ac tive TESSALON PERLES 100 MG CAP 1 tablet by mouth 3 times daily 07/07 BENZONATATE 16725795025 No Longer Active Bertrand Patel DO Ac tive NEBULIZER MISC use as directed NEBULIZERS 546112 85828 No Longer Active Bertrand Patel DO Active ALBUTEROL SULFATE 0.083 % NEBU SOLCammy one vial per nebul izer every 4-6 hours as needed ALBUTEROL SULFATE 14259508664 No Longer Active Bertrand Patel DO Active SYMBICORT 160-4.5 MCG/ACT AERO 2 puffs BID BUDESONIDE- FORMOTEROL FUMARATE 37299445334 No Longer Active Bertrand Patel DO Ac tive PREDNISONE 20 MG TAB take 3 tabs daily for 3 days , 2 tabs daily for 3 days, 1 tab daily for 3 days, 1/2 tab daily for 3 days P REDNISONE 11397941100 No Longer Active Silvia Arnold APRN Active AZITHROMYCIN 250 MG ORAL TABS Take 2 tabs po today then 1 ta b po daily AZITHROMYCIN 87761817101 No Longer Active Silvia Jorge leslye EKG MONITOR Active AUGMENTIN 875-125 MG TAB 1 po BID x 10 days AMOXICILLIN- POT CLAVULANATE 33159758687 No Longer Active Adriana Bender LPN Active CHEWABLE CALCIUM 500-200-40 MG-UNT-MCG ORAL CHEW 1 chew tab bid 201 11/03/03 CALCIUM-VITAMIN D-VITAMIN K 09488661614 Active Silvia Arnold APRN Active EQ COMPLETE MULTIVIT ADULT 50+ ORAL TABS 1 tab po bid MULTIPLE VITAMINS-MINERALS 95088160350 Active Silvia Arnold APRN Act jairo HYDROCODONE-ACETAMINOPHEN 7.5-325 MG TABS TAKE ONE TAB EVERY 6 HOURS BY MOUTH NEEDED FOR PAIN HYDROCODONE-ACETAMINOPHEN 60382726026 Acti ve Bertrand Patel DO Active LORTAB 7.5-500 MG TABS take one po Q6 hours HYDROCODONE-ACETAMINOPHEN No Longer Active Nirmal Robbins RN Active [facility] MELATONIN 5-10 MG CR-TABS Take one by mouth daily at bedtime MELATONIN-PYRIDOXINE 48581071233 No Longer Active Bertradn Patel DO Active VITAMIN E 200 UNIT CAPS 1 cap po qd VITAMIN E 316 03279162 No Longer Active Bertrand Patel DO Active B-12 1000 MCG CAPS 1 tab daily CYANOCOBALAMIN 31 370561673 No Longer Active Bertrand Patel DO Active METFORMIN HCL 500 MG TABS 1 bid METFORMIN HCL 82137297940 No Longer Active Bertrand Patel DO Active FUROSEMIDE 20 MG TABS 1 pill by mouth daily if needed for edema FUROSEMIDE 12628908351 No Longer Active Bertrand Patel DO Act jairo PRAVASTATIN SODIUM 20 MG TABS 1 tablet by mouth daily at bedtime PRAVASTATIN SODIUM 20200497445 No Longer Active Bertrand Patel DO Active AUGMENTIN 875-125 MG TABS 1 pill by mouth twice daily AMOXICILLIN-POT CLAVULANATE 69774111176 No Longer Active Yoli Mercado MD PhD Active LEVAQUIN 500 MG TABS 1 pill by mouth daily LEVO FLOXACIN 10826367961 No Longer Active Yoli Mercado MD PhD Active AMLODIPINE BESYLATE 5 MG TABS 1 tablet by mouth daily for bl ood pressure AMLODIPINE BESYLATE 97468819000 Active Darlyn Monzon Active MICARDIS 80 MG TABS 1 tablet daily for blood pressure TELMISARTAN 02535394969 Active Bertrand Patel DO Active MICARDIS HCT 80-12.5 MG TABS 1 qd TELMISARTA N-HCTZ 31948276471 No Longer Active Bertrand Patel DO Active CINNAMON ALPHA LIPOIC AC CMPLX CAPS by mouth twice a d ay in AM by mouth twice a day in PM ALPHA LIPOIC [id number]-[id number]-[id number] CAPS 892887 19544 No Longer Active Bertrand Patel DO Active AZITHROMYCIN 500 MG SOLR 1 po q day AZITHROMYCI N 51395233025 No Longer Active Bertrand Patel DO Active CYMBALTA 30 MG CPEP 1 cap by mouth daily DULOXE CATHI HCL 88634597338 No Longer Active Bertrand Patel DO Active CYMBALTA 60 MG CPEP 1 cap by mouth daily DULOXE CATHI HCL 33813468586 Active Keysha Jones MA Active WELLBUTRIN 75 MG TABS 2 times daily BUPROPION H CL 87453604890 No Longer Active Bertrand W Jorge DO Active PROAIR HFA 108 (90 BASE) MCG/ACT AERS take one to two puffs po Q4-6 hour prn cough and shortness of breath ALBUTEROL SULFATE 0407160597 2 Active Silvia Arnold EKG MONITOR Active AZITHROMYCIN 250 MG TABS take 2 po today then take 1 po days 2-5 AZITHROMYCIN 05016403644 No Longer Active Adolfo OSORIO Active PERMETHRIN 5 % CREA apply neck to toes tonight a nd then rinse off in morning. repeat at 7 days PERMETHRIN 46456352892 No Longer Active Adolfo OSORIO Active AMOXICILLIN 500 MG CAPS 2 po BID x 10 days AMOX ICILLIN 36458871830 No Longer Active Yoli Mercado MD PhD Active ALPRAZOLAM 0.5 MG TAB 1 tab by mouth tid ALPRAZOL AM 33356746916 Active Nitza Mullins [employer] WORKER Active INSUPEN ULTRAFIN 31G X 6 MM MISC USE DIRECTED 03/04 INSULIN PEN NEEDLE 06788875205 No Longer Active Bertrand Patel DO Active TRANSDERM-SCOP 1.5 MG PT72 1 patch applied behind ear q 3 day 20 04/13/28 SCOPOLAMINE BASE 32390798258 No Longer Active Bertrand Patel DO Active MACRODANTIN 100 MG CAPS one p.o. b.i.d. x2 weeks 03/04 NITROFURANTOIN MACROCRYSTAL 16564901725 No Longer Active Bertrand Patel DO Active MACRODANTIN 100 MG CAPS one p.o. b.i.d. x2 weeks 03/04 MACRODANTIN 100 MG CAPS 4920605 NITROFURANTOIN MACROCRYSTAL Inactive TRANSDERM-SCOP 1.5 MG PT72 1 patch applied behind ear q 3 day 20 04/13/28 TRANSDERM-SCOP 1.5 MG PT72 SCOPOLAMINE BASE Inac tive INSUPEN ULTRAFIN 31G X 6 MM MISC USE DIRECTED 03/04 INSUPEN ULTRAFIN 31G X 6 MM MISC INSULIN PEN NEEDLE Inactive PERMETHRIN 5 % CREA apply neck to toes tonight a nd then rinse off in morning. repeat at 7 days PERMETHRIN 5 % CREA 424483 PERMETHRIN Inactive WELLBUTRIN 75 MG TABS 2 times daily WELLBUTRIN 75 MG TABS BUPROPION HCL Inactive CYMBALTA 30 MG CPEP 1 cap by mouth daily CYMBALTA 30 MG CPEP 056976 DULOXETINE HCL Inactive AZITHROMYCIN 500 MG SOLR 1 po q day ALTA THROMYCIN 500 MG SOLR 20004260797 AZITHROMYCIN Inactive CINNAMON ALPHA LIPOIC AC CMPLX CAPS by mouth twice a d ay in AM by mouth twice a day in PM CINNAMON ALPHA LIPOIC AC CMPLX CAPS ALPHA LIPOIC DXNT-BC-VTXNTCNP CAPS Inactive MICARDIS HCT 80-12.5 MG TABS 1 qd MICARDI S HCT 80-12.5 MG TABS 382287 TELMISARTAN-HCTZ Inactive PRAVASTATIN SODIUM 20 MG TABS 1 tablet by mouth daily at bedtime PRAVASTATIN SODIUM 20 MG TABS 561102 PRAVASTATIN SODIUM Inactive FUROSEMIDE 20 MG TABS 1 pill by mouth daily if needed for edema FUROSEMIDE 20 MG TABS 479210 FUROSEMIDE Inactive METFORMIN HCL 500 MG TABS 1 bid METFORMIN HCL 500 MG TABS 772630 METFORMIN HCL Inactive B-12 1000 MCG CAPS 1 tab daily B-12 1000 MCG CAP S CYANOCOBALAMIN Inactive VITAMIN E 200 UNIT CAPS 1 cap po qd VITAMIN E 2 00 UNIT CAPS 9522494 VITAMIN E Inactive [facility] MELATONIN 5-10 MG CR-TABS Take one by mouth daily at bedtime [facility] MELATONIN 5-10 MG CR-TABS MELATONIN-PYRIDOXI NE Inactive LORTAB 7.5-500 MG TABS take one po Q6 hours LORTAB 7.5-500 MG TABS HYDROCODONE-ACETAMINOPHEN Inactive AZITHROMYCIN 250 MG ORAL TABS Take 2 tabs po today then 1 ta b po daily AZITHROMYCIN 250 MG ORAL TABS 6062978 AZITHROMYCI N Inactive SYMBICORT 160-4.5 MCG/ACT AERO 2 puffs BID SYMBICORT 160- 4.5 MCG/ACT AERO BUDESONIDE-FORMOTEROL FUMARATE Inactive ALBUTEROL SULFATE 0.083 % NEBU SOLN one vial per nebul izer every 4-6 hours as needed ALBUTEROL SULFATE 0.083 % NEBU SOLN 83784 8 ALBUTEROL SULFATE Inactive NEBULIZER MISC use as directed NEBULIZER MISC NEBULIZERS Inactive TESSALON PERLES 100 MG CAP 1 tablet by mouth 3 times daily 07/07 TESSALON PERLES 100 MG CAP 637899 BENZONATATE Inact jairo CYCLOBENZAPRINE HCL 10 MG TABS Take 1 tab TID PRN for muscle pain CYCLOBENZAPRINE HCL 10 MG TABS 287724 CYCLOBENZAPRINE HCL Inactive AUGMENTIN 875-125 MG TAB 1 po BID x 10 days AUGMENTIN 875- 125 MG TAB 743162 AMOXICILLIN-POT CLAVULANATE Inactive BACTROBAN 2 % CREAM Apply to affected area BID for up to 10 days BACTROBAN 2 % CREAM 030130 MUPIROCIN CALCIUM Inactive AMOXICILLIN 500 MG CAPS 2 po BID x 10 days AMOXICILLIN 500 MG CAPS 435445 AMOXICILLIN Inactive AZITHROMYCIN 250 MG TABS take 2 po today then take 1 po days 2-5 AZITHROMYCIN 250 MG TABS 9941166 AZITHROMYCIN Inactiv e LEVAQUIN 500 MG TABS 1 pill by mouth daily LEVAQUIN 500 MG TABS 906429 LEVOFLOXACIN Inactive AUGMENTIN 875-125 MG TABS 1 pill by mouth twice daily AUGMENTIN 875-125 MG TABS 374851 AMOXICILLIN-POT CLAVULANATE Inacti ve AUGMENTIN 875-125 MG TAB 1 po BID x 10 days AUGMENTIN 875- 125 MG TAB 181234 AMOXICILLIN-POT CLAVULANATE Inactive PREDNISONE 20 MG TAB take 3 tabs daily for 3 days , 2 tabs daily for 3 days, 1 tab daily for 3 days, 1/2 tab daily for 3 days PREDNISONE 20 MG TAB 665001 PREDNISONE Inactive CIPRO 500 MG TAB 1 tablet by mouth twice daily CIPRO 500 MG TAB 061131 CIPROFLOXACIN HCL Inactive Vital Signs Date Name Value Unit Range Description blood pressure, diastolic 82 mm[Hg] BP [place] blood pressure, systolic 145 mm[Hg] BP sys pulse rate E&M 83 /min Heart rate temperature E&M 97.8 [degF] Body temp erature weight E&M 338.1 [lb_av] Weight Measure d blood pressure, diastolic 85 mm[Hg] BP [place] blood pressure, systolic 138 mm[Hg] BP sys pulse rate E&M 86 /min Heart rate temperature E&M 99.1 [degF] Body temp erature weight E&M 317.2 [lb_av] Weight Measure d blood pressure, diastolic 85 mm[Hg] BP [place] blood pressure, systolic 136 mm[Hg] BP sys pulse rate E&M 73 /min Heart rate temperature E&M 98.6 [degF] Body temp erature weight E&M 315 [lb_av] Weight Measure d Diagnostic Results Date Name Value Unit Range Description Lab Report: FSH AND LH/7137/Adult - Chem istry luteinizing hormone, serum 29.6 m[iU]/mL follicle stimulating hormone, serum 62.5 m[iU]/mL Lab Report: HGBA1C - Chemistry hemoglobin A1C, blood, as % of total hemoglobin 6.2 % 4.3-6.0 Encounters Code Encounter Date Provider Facility CPT-33129 Level 4 Est. Patient 12:31:54 CDT Bertrand marquez [facility] CPT-55616 Level 3 Est. Patient 11:27:00 STAGE TECHNICIAN Ike Deluna MD [facility]-70693 Level 3 Est. Patient 08:50:57 STAGE TECHNICIAN Dangelo BARAJAS [facility] CPT-65635 Level 3 Est. Patient 10:04:13 CDT Bertrand marquez [facility]-80334 Level 4 Est. Patient 16:02:10 STAGE TECHNICIAN Dangelo EKG MONITOR [facility] CPT-70259 Level 3 Est. Patient 13:04:54 STAGE TECHNICIAN Dangelo EKG MONITOR [facility]-76681 Level 3 Est. Patient 12:56:37 CDT Bertrand marquez [facility] CPT-48332 Level 3 Est. Patient 19:12:03 CDT Yoli tolbert MD PhD [facility] CPT-21863 Level 3 Est. Patient 14:36:01 CDT Yoli tolbert MD [facility]-58221 Level 2 Est. Patient 08:00:22 CDT Jcarlos dc MD [facility]-68784 Level 3 Est. Patient 19:06:55 CDT Bertrand marquez [facility] CPT-59351 Level 3 Est. Patient 10:08:23 STAGE TECHNICIAN Bertrand marquez [facility]-54600 Level 3 Est. Patient 16:37:54 STAGE TECHNICIAN Bretrand marquez [facility] CPT-32445 Level 3 Est. Patient 11:31:59 STAGE TECHNICIAN Bertrand marquez [facility] CPT-59064 Level 3 Est. Patient 10:20:08 CDT Adolfo OSORIO [facility]-21484 Level 3 Est. Patient 13:45:20 CDT Sanket Ankit buckley [facility] CPT-73330 Level 3 Est. Patient 12:51:06 CDT Adolfo Monroyridge halljacklyn [facility] CPT-18098 Level 3 Est. Patient 11:22:51 STAGE TECHNICIAN Yoil tolbert MD PhD [facility] CPT-86694 Level 3 Est. Patient 13:33:19 CDT Bertrand Sabillon ee DO [facility] Procedures Code Procedure Name Date Entry Date Standard Desc ription CPT-82813 Wound Culture - LAB USE ONLY 15:45:25 CDT 2 CPT-61506 Venipuncture Draw Fee 10:23:01 CDT CPT-J0696 Rocephin 1000 mg (Ceftriaxone) 16:20:30 STAGE TECHNICIAN CPT-68664 Abx/Therapy Injection 16:20:29 STAGE TECHNICIAN CPT-J0696 Rocephin 1gm Inj Solr 15:51:59 STAGE TECHNICIAN CPT-47510 Chest 2V Frontal and Lat 15:20:28 STAGE TECHNICIAN 07/22 CPT-55768 Breathing Tx 14:51:55 STAGE TECHNICIAN CPT-82689 Breathing Tx 09:57:16 STAGE TECHNICIAN CPT-75136 Knee comp 4/> V 11:58:06 STAGE TECHNICIAN
--- OUTSIDE RECORDS SUMMARY | 2019-11-13 10:02 | XMS REPORT | Clinical Summary ---
Author Author Admin, Enrique Adamson Organization [employer] Address Unknown Phone Unavailable Allergies, Adverse Reactions, [...] as uncontrolled Morbid obesity 278.01 Active Bertrand aPtel DO Morbid obesity Hyperlipidemia 272.4 Active Bertrand [...] conditions classified elsewhere and of unspecified site HEALTH SCREENING ICD-V70.0 Inactive Yoli sabillon MD [...] Generic Name NDC Status Provider Patient Instruction BENZONATATE 200 MG ORAL CAPS 1 three times a day as needed for c ough BENZONATATE 07479501697 Active Ike Deluna MD Acti ve ZITHROMAX Z-MARTIN 250 MG TABS 2 today and then 1 daily for 4 days 201 12/01/06 AZITHROMYCIN 04971919511 Active Ike Deluna MD Active ADDERALL 10 MG ORAL TABS 1 tab twice daily AMPHETAMINE-DEXTROAMPHETAMINE 64481947128 Active Ike Deluna MD Active BACTROBAN 2 % CREAM Apply to affected area BID for up to 10 days MUPIROCIN CALCIUM 21265629646 No Longer Active Ike Deluna MD Active CIPRO 500 MG TAB 1 tablet by mouth twice daily CIPROFLOXACIN HCL 58675491044 No Longer Active Adraina Bender LPN Active AUGMENTIN 875-125 MG TAB 1 po BID x 10 days AMOXICILLIN- POT CLAVULANATE 26785051562 No Longer Active Adriana Bender LPN Active MODAFINIL 200 MG ORAL TABS Take 1/2 tab po in the am and 1/2 tab po at noon MODAFINIL 06958516486 Active Silvia Arnold APRN Active CYCLOBENZAPRINE HCL 10 MG TABS Take 1 tab TID PRN for muscle pain CYCLOBENZAPRINE HCL 33816084767 No Longer Active Bertrand Patel DO Ac tive TESSALON PERLES 100 MG CAP 1 tablet by mouth 3 times daily 07/07 BENZONATATE 14240573966 No Longer Active Bertrand Patel DO Ac tive NEBULIZER MISC use as directed NEBULIZERS 188479 84250 No Longer Active Bertrand Patel DO Active ALBUTEROL SULFATE 0.083 % NEBU SOLN one vial per nebul izer every 4-6 hours as needed ALBUTEROL SULFATE 87889226316 No Longer Active Bertrand Patel DO Active SYMBICORT 160-4.5 MCG/ACT AERO 2 puffs BID BUDESONIDE- FORMOTEROL FUMARATE 54320481265 No Longer Active Bertrand Patel DO Ac tive PREDNISONE 20 MG TAB take 3 tabs daily for 3 days , 2 tabs daily for 3 days, 1 tab daily for 3 days, 1/2 tab daily for 3 days P REDNISONE 29570766517 No Longer Active Silvia Arnold APRN Active AZITHROMYCIN 250 MG ORAL TABS Take 2 tabs po today then 1 ta b po daily AZITHROMYCIN 99404095400 No Longer Active 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 AUGMENTIN 875-125 MG TAB 1 po BID x 10 days AMOXICILLIN- POT CLAVULANATE 05936043692 No Longer Active Adriana Bender LPN Active CHEWABLE CALCIUM 500-200-40 MG-UNT-MCG ORAL CHEW 1 chew tab bid 201 11/03/03 CALCIUM-VITAMIN D-VITAMIN K 98214272061 Active Silvia Arnold APRN Active EQ COMPLETE MULTIVIT ADULT 50+ ORAL TABS 1 tab po bid MULTIPLE VITAMINS-MINERALS 64796184635 Active Silvia Arnold APRN Act jairo HYDROCODONE-ACETAMINOPHEN 7.5-325 MG TABS TAKE ONE TAB EVERY 6 HOURS BY MOUTH NEEDED FOR PAIN HYDROCODONE-ACETAMINOPHEN 65654928286 Acti raheel العلي Active LORTAB 7.5-500 MG TABS take one po Q6 hours HYDROCODONE-ACETAMINOPHEN No Longer Active Nirmal Robbins RN Active [facility] MELATONIN 5-10 MG CR-TABS Take one by mouth daily at bedtime MELATONIN-PYRIDOXINE 67032173168 No Longer Active Bertrand Patel DO Active VITAMIN E 200 UNIT CAPS 1 cap po qd VITAMIN E 316 30116528 No Longer Active Bertrand Patel DO Active B-12 1000 MCG CAPS 1 tab daily CYANOCOBALAMIN 31 628181743 No Longer Active Bertrand Patel DO Active METFORMIN HCL 500 MG TABS 1 bid METFORMIN HCL 35574768361 No Longer Active Bertrand Patel DO Active FUROSEMIDE 20 MG TABS 1 pill by mouth daily if needed for edema FUROSEMIDE 13589179396 No Longer Active Bertrand Patel DO Act jairo PRAVASTATIN SODIUM 20 MG TABS 1 tablet by mouth daily at bedtime PRAVASTATIN SODIUM 97571331495 No Longer Active Bertrand Patel DO Active AUGMENTIN 875-125 MG TABS 1 pill by mouth twice daily AMOXICILLIN-POT CLAVULANATE 48221698858 No Longer Active Yoli Mercado MD PhD Active LEVAQUIN 500 MG TABS 1 pill by mouth daily LEVO FLOXACIN 61568840842 No Longer Active Yoli Mercado MD PhD Active AMLODIPINE BESYLATE 5 MG TABS 1 tablet by mouth daily for bl ood pressure AMLODIPINE BESYLATE 58792259216 Active Keysha Jones MA Active MICARDIS 80 MG TABS 1 tablet daily for blood pressure TELMISARTAN 13071550006 Active Keysha Jones MA Active MICARDIS HCT 80-12.5 MG TABS 1 qd TELMISARTA N-HCTZ 55433604471 No Longer Active Bertrand Patel DO Active CINNAMON ALPHA LIPOIC AC CMPLX CAPS by mouth twice a d ay in AM by mouth twice a day in PM ALPHA LIPOIC UHAS-HJ-ZNNJILEH CAPS 182522 89320 No Longer Active Bertrand Patel DO Active AZITHROMYCIN 500 MG SOLR 1 po q day AZITHROMYCI N 29825823398 No Longer Active Bertrand Patel DO Active CYMBALTA 30 MG CPEP 1 cap by mouth daily DULOXE CATHI HCL 41036808416 No Longer Active Bertrand Patel DO Active CYMBALTA 60 MG CPEP 1 cap by mouth daily DULOXE CATHI HCL 89927895641 Active Keysha Jones MA Active WELLBUTRIN 75 MG TABS 2 times daily BUPROPION H CL 95835793590 No Longer Active Bertrand Patel DO Active PROAIR HFA 108 (90 BASE) MCG/ACT AERS take one to two puffs po Q4-6 hour prn cough and shortness of breath ALBUTEROL SULFATE 0782565294 2 Active Silvia Arnold APRN Active AZITHROMYCIN 250 MG TABS take 2 po today then take 1 po days 2-5 AZITHROMYCIN 60607775836 No Longer Active Adolfo OSORIO Active PERMETHRIN 5 % CREA apply neck to toes tonight a nd then rinse off in morning. repeat at 7 days PERMETHRIN 28016139253 No Longer Active Adolfo OSORIO Active AMOXICILLIN 500 MG CAPS 2 po BID x 10 days AMOX ICILLIN 12882730918 No Longer Active Yoli Mercado MD PhD Active ALPRAZOLAM 0.5 MG TAB 1 tab by mouth tid ALPRAZOL AM 57978244015 Active Nitza Mullins RPT,RMA Active INSUPEN ULTRAFIN 31G X 6 MM MISC USE DIRECTED 03/04 INSULIN PEN NEEDLE 67014589713 No Longer Active Bertrand Patel DO Active TRANSDERM-SCOP 1.5 MG PT72 1 patch applied behind ear q 3 day 20 04/13/28 SCOPOLAMINE BASE 16652902723 No Longer Active Bertrand Patel DO Active MACRODANTIN 100 MG CAPS one p.o. b.i.d. x2 weeks 03/04 NITROFURANTOIN MACROCRYSTAL 07375584952 No Longer Active Bertrand Patel DO Active MACRODANTIN 100 MG CAPS one p.o. b.i.d. x2 weeks 03/04 MACRODANTIN 100 MG CAPS 8526647 NITROFURANTOIN MACROCRYSTAL Inactive TRANSDERM-SCOP 1.5 MG PT72 [...] at 7 days PERMETHRIN 5 % CREA 836652 PERMETHRIN Inactive WELLBUTRIN 75 MG TABS 2 times daily WELLBUTRIN 75 MG TABS BUPROPION HCL Inactive CYMBALTA 30 MG CPEP 1 cap by mouth daily CYMBALTA 30 MG CPEP 972681 DULOXETINE HCL Inactive AZITHROMYCIN 500 MG SOLR 1 po q day ALTA THROMYCIN 500 MG SOLR 20980778744 AZITHROMYCIN Inactive CINNAMON ALPHA LIPOIC AC CMPLX CAPS by mouth twice a d ay in AM by mouth twice a day in PM CINNAMON ALPHA LIPOIC AC CMPLX CAPS ALPHA LIPOIC GDKN-OR-OXRAQSIR CAPS Inactive MICARDIS HCT 80-12.5 MG TABS 1 qd MICARDI S HCT 80-12.5 MG TABS 242038 TELMISARTAN-HCTZ Inactive PRAVASTATIN SODIUM 20 MG TABS 1 tablet by mouth daily at bedtime PRAVASTATIN SODIUM 20 MG TABS 284796 PRAVASTATIN SODIUM Inactive FUROSEMIDE 20 MG TABS 1 pill by mouth daily if needed for edema FUROSEMIDE 20 MG TABS 749278 FUROSEMIDE Inactive METFORMIN HCL 500 MG TABS 1 bid METFORMIN HCL 500 MG TABS 808728 METFORMIN HCL Inactive B-12 1000 MCG CAPS 1 tab daily B-12 1000 MCG CAP S CYANOCOBALAMIN Inactive VITAMIN E 200 UNIT CAPS 1 cap po qd VITAMIN E 2 00 UNIT CAPS 2236862 VITAMIN E Inactive [facility] MELATONIN 5-10 MG CR-TABS Take one by mouth daily at bedtime [facility] MELATONIN 5-10 MG CR-TABS MELATONIN-PYRIDOXI NE Inactive LORTAB 7.5-500 MG TABS take one po Q6 hours LORTAB 7.5-500 MG TABS HYDROCODONE-ACETAMINOPHEN Inactive AZITHROMYCIN 250 MG ORAL TABS Take 2 tabs po today then 1 ta b po daily AZITHROMYCIN 250 MG ORAL TABS 5657012 AZITHROMYCI N Inactive SYMBICORT 160-4.5 MCG/ACT AERO 2 puffs BID SYMBICORT 160- 4.5 MCG/ACT AERO BUDESONIDE-FORMOTEROL FUMARATE Inactive ALBUTEROL SULFATE 0.083 % NEBU SOLN one vial per nebul izer every 4-6 hours as needed ALBUTEROL SULFATE 0.083 % NEBU SOLN 66631 8 ALBUTEROL SULFATE Inactive NEBULIZER MISC use as directed NEBULIZER MISC NEBULIZERS Inactive TESSALON PERLES 100 MG CAP 1 tablet by mouth 3 times daily 07/07 TESSALON PERLES 100 MG CAP 686433 BENZONATATE Inact jairo CYCLOBENZAPRINE HCL 10 MG TABS Take 1 tab TID PRN for muscle pain CYCLOBENZAPRINE HCL 10 MG TABS 727492 CYCLOBENZAPRINE HCL Inactive AUGMENTIN 875-125 MG TAB 1 po BID x 10 days AUGMENTIN 875- 125 MG TAB 902455 AMOXICILLIN-POT CLAVULANATE Inactive BACTROBAN 2 % CREAM Apply to affected area BID for up to 10 days BACTROBAN 2 % CREAM 213922 MUPIROCIN CALCIUM Inactive AMOXICILLIN 500 MG CAPS 2 po BID x 10 days AMOXICILLIN 500 MG CAPS 961941 AMOXICILLIN Inactive AZITHROMYCIN 250 MG TABS take 2 po today then take 1 po days 2-5 AZITHROMYCIN 250 MG TABS 3417514 AZITHROMYCIN Inactiv e LEVAQUIN 500 MG TABS 1 pill by mouth daily LEVAQUIN 500 MG TABS 589739 LEVOFLOXACIN Inactive AUGMENTIN 875-125 MG TABS 1 pill by mouth twice daily AUGMENTIN 875-125 MG TABS 710149 AMOXICILLIN-POT CLAVULANATE Inacti ve AUGMENTIN 875-125 MG TAB 1 po BID x 10 days AUGMENTIN 875- 125 MG TAB 494628 AMOXICILLIN-POT CLAVULANATE Inactive PREDNISONE 20 MG TAB take 3 tabs daily for 3 days , 2 tabs daily for 3 days, 1 tab daily for 3 days, 1/2 tab daily for 3 days PREDNISONE 20 MG TAB 415946 PREDNISONE Inactive CIPRO 500 MG TAB 1 tablet by mouth twice daily CIPRO 500 MG TAB 659137 CIPROFLOXACIN HCL Inactive Vital Signs Date Name Value Unit Range Description blood pressure, diastolic - 8462-4 85 mm[Hg] BP [place] blood pressure, systolic - 8480-6 138 mm[Hg] BP sys pulse rate E&M - 8867-4 86 /min H eart rate temperature E&M 99.1 [degF] Body temp erature weight E&M - 3141-9 317.2 [lb_av] Weigh t Measured blood pressure, diastolic - 8462-4 85 mm[Hg] BP [place] blood pressure, systolic - 8480-6 136 mm[Hg] BP sys pulse rate E&M - 8867-4 73 /min H eart rate temperature E&M 98.6 [degF] Body temp erature weight E&M - 3141-9 315 [lb_av] Weigh t Measured blood pressure, diastolic - 8462-4 88 mm[Hg] BP [place] blood pressure, systolic - 8480-6 141 mm[Hg] BP sys pulse rate E&M - 8867-4 68 /min H eart rate temperature E&M 97.6 [degF] Body temp erature weight E&M - 3141-9 303.4 [lb_av] Weigh t Measured blood pressure, diastolic - 8462-4 90 mm[Hg] BP [place] blood pressure, systolic - 8480-6 149 mm[Hg] BP sys pulse rate E&M - 8867-4 80 /min H eart rate temperature E&M 98.3 [degF] Body temp erature weight E&M - 3141-9 308 [lb_av] Weigh t Measured Diagnostic Results Date Name Value Unit Range Description Lab Report: CBC W/DIFF - Hematology leukocyte count, blood 10.4 10^3/MM^3 10*3/mm3 4.6-10.2 neutrophils as percent of blood leukocytes 44.9 % 42.2-75.2 monocytes as percent of blood leukocytes 9.8 % 1.7-9.3 lymphocytes as percent of blood leukocytes 39.3 % 20.5-51.1 erythrocyte (RBC) count 3.95 10^6/MM^3 10*6/mm3 4.04-5.4 8 hemoglobin, blood 12.5 g/dL 12.0-16.0 hematocrit, blood 37.4 % 36.0-46.0 mean corpuscular volume, RBC 95 fL 80-97 mean corpuscular hemoglobin, RBC 31.6 pg 27. 0-31.2 mean corpuscular hemoglobin concentration, RBC 33.3 G/DL % 31.8-35.4 red blood cell distribution width 14.6 % 11 .6-14.8 platelet count 339 10^3/MM^3 10*3/mm3 142-424 Lab Report: HGBA1C, Lipid Panel, MICROAL B/CREAT W/RATIO, Thyroid Stimula ... - Chemistry hemoglobin A1C, blood, as % of total hemoglobin 5.8 % 4.3-6.0 cholesterol, serum 200 mg/dL 973-073 7089/07/22 triglyceride, serum, fasting 56 mg/dL 30-200 HDL cholesterol, serum 80 mg/dL 32-96 LDL cholesterol, serum 109 mg/dL 0-130 albumin/creatinine ratio, urine < 30 mg/g mg/g{creat} 0-2 9 TSH 1.16 m[iU]/mL 0.36-3.74 sodium, serum 142 mmol/L 290-684 2051/07/22 carbon dioxide, venous blood 33.1 mmol/L 21.0-32 .0 potassium, serum 4.6 mmol/L 3.5-5.2 chloride, serum 105 mmol/L 98-107 blood glucose 96 mg/dL 65-110 urea nitrogen, blood 16 mg/dL 7-18 creatinine, serum 0.69 mg/dL 0.55-1.30 alanine aminotransferase (SGPT), serum 22 U/L 12-78 aspartate aminotransferase (SGOT), serum 18 U/L 15-37 calcium, serum 8.7 mg/dL 8.5-10.1 bilirubin, serum, total 0.40 mg/dL 0.00-1.00 Lab Report: HGBA1C, Lipid Panel, MICROAL B/CREAT W/RATIO, Thyroid Stimula ... - Hematology leukocyte count, blood 7.0 10^3/MM^3 10*3/mm3 4.6-10.2 erythrocyte (RBC) count 4.46 10^6/MM^3 10*6/mm3 4.04-5.4 8 hemoglobin, blood 13.8 g/dL 12.0-16.0 hematocrit, blood 41.9 % 36.0-46.0 mean corpuscular volume, RBC 94 fL 80-97 mean corpuscular hemoglobin, RBC 31.1 pg 27. 0-31.2 mean corpuscular hemoglobin concentration, RBC 33.0 G/DL % 31.8-35.4 red blood cell distribution width 14.9 % 11 .6-14.8 platelet count 274 10^3/MM^3 10*3/mm3 142-424 Lab Report: HGBA1C, Lipid Panel, MICROAL B/CREAT W/RATIO, Thyroid Stimula ... - Lab microalbumin, urine 10 0-19 Encounters Code Encounter Date Provider Facility CPT-14397 Level 3 Est. Patient 11:27:00 ASSOCIATE DIRECTOR QA Ike Deluna MD [facility] CPT-54943 Level 3 Est. Patient 08:50:57 ASSOCIATE DIRECTOR QA Dangelo BARAJAS [facility] CPT-84242 Level 3 Est. Patient 10:04:13 CDT Bertrand marquez [facility] CPT-53263 Level 4 Est. Patient 16:02:10 ASSOCIATE DIRECTOR QA Dangelo BARAJAS [facility] CPT-40506 Level 3 Est. Patient 13:04:54 ASSOCIATE DIRECTOR QA Dangelo BARAJAS [facility]-57113 Level 3 Est. Patient 12:56:37 CDT Bertrand marquez [facility] CPT-53126 Level 3 Est. Patient 19:12:03 CDT Yoli tolbert MD PhD [facility]-27613 Level 3 Est. Patient 14:36:01 CDT Yoli tolbert MD [facility]-53703 Level 2 Est. Patient 08:00:22 CDT Jcarlos dc MD [facility]-28464 Level 3 Est. Patient 19:06:55 CDT Bertrand marquez [facility] CPT-94175 Level 3 Est. Patient 10:08:23 ASSOCIATE DIRECTOR QA Bertrand marquez [facility] CPT-29720 Level 3 Est. Patient 16:37:54 ASSOCIATE DIRECTOR QA Bertrand marquez [facility] CPT-39101 Level 3 Est. Patient 11:31:59 ASSOCIATE DIRECTOR QA Bertrand marquez [facility] CPT-67220 Level 3 Est. Patient 10:20:08 CDT Adolfo villasenor [facility] CPT-37974 Level 3 Est. Patient 13:45:20 CDT Sanket buckley [facility] CPT-04742 Level 3 Est. Patient 12:51:06 CDT Adolfo villasenor [facility] CPT-90023 Level 3 Est. Patient 11:22:51 ASSOCIATE DIRECTOR QA Yoli tolbert MD PhD [facility] CPT-35884 Level 3 Est. Patient 13:33:19 CDT Bertrand marquez DO [facility] Procedures Code Procedure Name Date Entry Date Standard Desc ription CPT-29569 Wound Culture - LAB USE ONLY 15:45:25 CDT 2 CPT-75137 Venipuncture Draw Fee 10:23:01 CDT CPT-J0696 Rocephin 1000 mg (Ceftriaxone) 16:20:30 ASSOCIATE DIRECTOR QA CPT-30155 Abx/Therapy Injection 16:20:29 ASSOCIATE DIRECTOR QA CPT-J0696 Rocephin 1gm Inj Solr 15:51:59 ASSOCIATE DIRECTOR QA CPT-16808 Chest 2V Frontal and Lat 15:20:28 ASSOCIATE DIRECTOR QA 07/22 CPT-20163 Breathing Tx 14:51:55 ASSOCIATE DIRECTOR QA CPT-83662 Breathing Tx 09:57:16 ASSOCIATE DIRECTOR QA CPT-30242 Knee comp 4/> V 11:58:06 ASSOCIATE DIRECTOR QA
--- OUTSIDE RECORDS SUMMARY | 2019-11-13 10:02 | XMS REPORT | Clinical Summary ---
Author Author Admin, Enrique Adamson Organization [employer] Address Unknown Phone Unavailable Allergies, Adverse Reactions, [...] NDC Status Provider Patient Instruction VITAMIN D3 79585 UNIT CAPS 1 pill Week x 4 months for vitamin D deficiency/osteoporosis CHOLECALCIFEROL 29388855015 Active Darlyn Monzon Active BENZONATATE 200 MG ORAL CAPS 1 three times a day as needed for c ough BENZONATATE 33943822978 Active Ike Deluna MD Acti ve ZITHROMAX Z-MARTIN 250 MG TABS 2 today and then 1 daily for 4 days 201 12/01/06 AZITHROMYCIN 89134701797 Active Ike Deluna MD Active ADDERALL 10 MG ORAL TABS 1 tab twice daily AMPHETAMINE-DEXTROAMPHETAMINE 27227538511 Active Ike Deluna MD Active BACTROBAN 2 % CREAM Apply to affected area BID for up to 10 days MUPIROCIN CALCIUM 76882550242 No Longer Active Ike Deluna MD Active CIPRO 500 MG TAB 1 tablet by mouth twice daily CIPROFLOXACIN HCL 66616711795 No Longer Active Adriana Bender LPN Active AUGMENTIN 875-125 MG TAB 1 po BID x 10 days AMOXICILLIN- POT CLAVULANATE 07617729976 No Longer Active Adriana Bender LPN Active MODAFINIL 200 MG ORAL TABS Take 1/2 tab po in the am and 1/2 tab po at noon MODAFINIL 70498425174 Active Bertrand Patel DO Ac tive CYCLOBENZAPRINE HCL 10 MG TABS Take 1 tab TID PRN for muscle pain CYCLOBENZAPRINE HCL 01087860589 No Longer Active Bertrand Patel DO Ac tive TESSALON PERLES 100 MG CAP 1 tablet by mouth 3 times daily 07/07 BENZONATATE 44749634773 No Longer Active Bertrand Patel DO Ac tive NEBULIZER MISC use as directed NEBULIZERS 767858 29279 No Longer Active Bertrand Patel DO Active ALBUTEROL SULFATE 0.083 % NEBU SOLCammy one vial per nebul izer every 4-6 hours as needed ALBUTEROL SULFATE 70721172561 No Longer Active Bertrand Patel DO Active SYMBICORT 160-4.5 MCG/ACT AERO 2 puffs BID BUDESONIDE- FORMOTEROL FUMARATE 52672281081 No Longer Active Bertrand Patel DO Ac tive PREDNISONE 20 MG TAB take 3 tabs daily for 3 days , 2 tabs daily for 3 days, 1 tab daily for 3 days, 1/2 tab daily for 3 days P REDNISONE 38664250620 No Longer Active Silvia Arnold APRN Active AZITHROMYCIN 250 MG ORAL TABS Take 2 tabs po today then 1 ta b po daily AZITHROMYCIN 21829980410 No Longer Active Silvia Jorge leslye TRIBUNAL MEMBER Active AUGMENTIN 875-125 MG TAB 1 po BID x 10 days AMOXICILLIN- POT CLAVULANATE 89764691748 No Longer Active Adriana Bender LPN Active CHEWABLE CALCIUM 500-200-40 MG-UNT-MCG ORAL CHEW 1 chew tab bid 201 11/03/03 CALCIUM-VITAMIN D-VITAMIN K 31082674621 Active Silvia Arnold APRN Active EQ COMPLETE MULTIVIT ADULT 50+ ORAL TABS 1 tab po bid MULTIPLE VITAMINS-MINERALS 67224669830 Active Silvia Arnold APRN Act jairo HYDROCODONE-ACETAMINOPHEN 7.5-325 MG TABS TAKE ONE TAB EVERY 6 HOURS BY MOUTH NEEDED FOR PAIN HYDROCODONE-ACETAMINOPHEN 46147187547 Acti ve Bertrand Patel DO Active LORTAB 7.5-500 MG TABS take one po Q6 hours HYDROCODONE-ACETAMINOPHEN No Longer Active Nirmal Robbins RN Active [facility] MELATONIN 5-10 MG CR-TABS Take one by mouth daily at bedtime MELATONIN-PYRIDOXINE 31740496409 No Longer Active Bertrand Patel DO Active VITAMIN E 200 UNIT CAPS 1 cap po qd VITAMIN E 316 21098517 No Longer Active Bertrand Patel DO Active B-12 1000 MCG CAPS 1 tab daily CYANOCOBALAMIN 31 886419611 No Longer Active Bertrand Patel DO Active METFORMIN HCL 500 MG TABS 1 bid METFORMIN HCL 55231847891 No Longer Active Bertrand Patel DO Active FUROSEMIDE 20 MG TABS 1 pill by mouth daily if needed for edema FUROSEMIDE 58993880997 No Longer Active Bertrand Patel DO Act jairo PRAVASTATIN SODIUM 20 MG TABS 1 tablet by mouth daily at bedtime PRAVASTATIN SODIUM 80921749352 No Longer Active Bertrand Patel DO Active AUGMENTIN 875-125 MG TABS 1 pill by mouth twice daily AMOXICILLIN-POT CLAVULANATE 85863483661 No Longer Active Yoli Mercado MD PhD Active LEVAQUIN 500 MG TABS 1 pill by mouth daily LEVO FLOXACIN 35627641253 No Longer Active Yoli Mercado MD PhD Active AMLODIPINE BESYLATE 5 MG TABS 1 tablet by mouth daily for bl ood pressure AMLODIPINE BESYLATE 03124654530 Active Darlyn Monzon Active MICARDIS 80 MG TABS 1 tablet daily for blood pressure TELMISARTAN 40105893629 Active Bertrand Patel DO Active MICARDIS HCT 80-12.5 MG TABS 1 qd TELMISARTA N-HCTZ 40729363277 No Longer Active Bertrand Patel DO Active CINNAMON ALPHA LIPOIC AC CMPLX CAPS by mouth twice a d ay in AM by mouth twice a day in PM ALPHA LIPOIC STOL-XU-IHXCPLQY CAPS 359481 76229 No Longer Active Bertrand Patel DO Active AZITHROMYCIN 500 MG SOLR 1 po q day AZITHROMYCI N 14478525118 No Longer Active Bertrand Patel DO Active CYMBALTA 30 MG CPEP 1 cap by mouth daily DULOXE CATHI HCL 55513106033 No Longer Active Bertrand Patel DO Active CYMBALTA 60 MG CPEP 1 cap by mouth daily DULOXE CATHI HCL 92088909417 Active Keysha Jones MA Active WELLBUTRIN 75 MG TABS 2 times daily BUPROPION H CL 98346393389 No Longer Active Bertrand W Jorge DO Active PROAIR HFA 108 (90 BASE) MCG/ACT AERS take one to two puffs po Q4-6 hour prn cough and shortness of breath ALBUTEROL SULFATE 7068240027 2 Active Silvia Arnold [employer]NAL MEMBER Active AZITHROMYCIN 250 MG TABS take 2 po today then take 1 po days 2-5 AZITHROMYCIN 35118927732 No Longer Active Adolfo OSORIO Active PERMETHRIN 5 % CREA apply neck to toes tonight a nd then rinse off in morning. repeat at 7 days PERMETHRIN 12300879773 No Longer Active Adolfo OSORIO Active AMOXICILLIN 500 MG CAPS 2 po BID x 10 days AMOX ICILLIN 53629253086 No Longer Active Yoli Mercado MD PhD Active ALPRAZOLAM 0.5 MG TAB 1 tab by mouth tid ALPRAZOL AM 51509698317 Active Nitza Mullins MICROBIOLOGY ANALYST Active INSUPEN ULTRAFIN 31G X 6 MM MISC USE DIRECTED 03/04 INSULIN PEN NEEDLE 89470770309 No Longer Active Bertrand Patel DO Active TRANSDERM-SCOP 1.5 MG PT72 1 patch applied behind ear q 3 day 20 04/13/28 SCOPOLAMINE BASE 60997337139 No Longer Active Bertrand Patel DO Active MACRODANTIN 100 MG CAPS one p.o. b.i.d. x2 weeks 03/04 NITROFURANTOIN MACROCRYSTAL 73389095859 No Longer Active Bertrand Patel DO Active MACRODANTIN 100 MG CAPS one p.o. b.i.d. x2 weeks 03/04 MACRODANTIN 100 MG CAPS 8158427 NITROFURANTOIN MACROCRYSTAL Inactive TRANSDERM-SCOP 1.5 MG PT72 [...] at 7 days PERMETHRIN 5 % CREA 877321 PERMETHRIN Inactive WELLBUTRIN 75 MG TABS 2 times daily WELLBUTRIN 75 MG TABS BUPROPION HCL Inactive CYMBALTA 30 MG CPEP 1 cap by mouth daily CYMBALTA 30 MG CPEP 286971 DULOXETINE HCL Inactive AZITHROMYCIN 500 MG SOLR 1 po q day ALTA THROMYCIN 500 MG SOLR 67790877550 AZITHROMYCIN Inactive CINNAMON ALPHA LIPOIC AC CMPLX CAPS by mouth twice a d ay in AM by mouth twice a day in PM CINNAMON ALPHA LIPOIC AC CMPLX CAPS ALPHA LIPOIC [id number] CAPS Inactive MICARDIS HCT 80-12.5 MG TABS 1 qd MICARDI S HCT 80-12.5 MG TABS 201374 TELMISARTAN-HCTZ Inactive PRAVASTATIN SODIUM 20 MG TABS 1 tablet by mouth daily at bedtime PRAVASTATIN SODIUM 20 MG TABS 766314 PRAVASTATIN SODIUM Inactive FUROSEMIDE 20 MG TABS 1 pill by mouth daily if needed for edema FUROSEMIDE 20 MG TABS 641575 FUROSEMIDE Inactive METFORMIN HCL 500 MG TABS 1 bid METFORMIN HCL 500 MG TABS 439325 METFORMIN HCL Inactive B-12 1000 MCG CAPS 1 tab daily B-12 1000 MCG CAP S CYANOCOBALAMIN Inactive VITAMIN E 200 UNIT CAPS 1 cap po qd VITAMIN E 2 00 UNIT CAPS 7674303 VITAMIN E Inactive [facility] MELATONIN 5-10 MG CR-TABS Take one by mouth daily at bedtime [facility] MELATONIN 5-10 MG CR-TABS MELATONIN-PYRIDOXI NE Inactive LORTAB 7.5-500 MG TABS take one po Q6 hours LORTAB 7.5-500 MG TABS HYDROCODONE-ACETAMINOPHEN Inactive AZITHROMYCIN 250 MG ORAL TABS Take 2 tabs po today then 1 ta b po daily AZITHROMYCIN 250 MG ORAL TABS 4829339 AZITHROMYCI N Inactive SYMBICORT 160-4.5 MCG/ACT AERO 2 puffs BID SYMBICORT 160- 4.5 MCG/ACT AERO BUDESONIDE-FORMOTEROL FUMARATE Inactive ALBUTEROL SULFATE 0.083 % NEBU SOLN one vial per nebul izer every 4-6 hours as needed ALBUTEROL SULFATE 0.083 % NEBU SOLN 25763 8 ALBUTEROL SULFATE Inactive NEBULIZER MISC use as directed NEBULIZER MISC NEBULIZERS Inactive TESSALON PERLES 100 MG CAP 1 tablet by mouth 3 times daily 07/07 TESSALON PERLES 100 MG CAP 200166 BENZONATATE Inact jairo CYCLOBENZAPRINE HCL 10 MG TABS Take 1 tab TID PRN for muscle pain CYCLOBENZAPRINE HCL 10 MG TABS 064557 CYCLOBENZAPRINE HCL Inactive AUGMENTIN 875-125 MG TAB 1 po BID x 10 days AUGMENTIN 875- 125 MG TAB 242599 AMOXICILLIN-POT CLAVULANATE Inactive BACTROBAN 2 % CREAM Apply to affected area BID for up to 10 days BACTROBAN 2 % CREAM 328229 MUPIROCIN CALCIUM Inactive AMOXICILLIN 500 MG CAPS 2 po BID x 10 days AMOXICILLIN 500 MG CAPS 201326 AMOXICILLIN Inactive AZITHROMYCIN 250 MG TABS take 2 po today then take 1 po days 2-5 AZITHROMYCIN 250 MG TABS 8160404 AZITHROMYCIN Inactiv e LEVAQUIN 500 MG TABS 1 pill by mouth daily LEVAQUIN 500 MG TABS 099439 LEVOFLOXACIN Inactive AUGMENTIN 875-125 MG TABS 1 pill by mouth twice daily AUGMENTIN 875-125 MG TABS 600248 AMOXICILLIN-POT CLAVULANATE Inacti ve AUGMENTIN 875-125 MG TAB 1 po BID x 10 days AUGMENTIN 875- 125 MG TAB 680926 AMOXICILLIN-POT CLAVULANATE Inactive PREDNISONE 20 MG TAB take 3 tabs daily for 3 days , 2 tabs daily for 3 days, 1 tab daily for 3 days, 1/2 tab daily for 3 days PREDNISONE 20 MG TAB 213631 PREDNISONE Inactive CIPRO 500 MG TAB 1 tablet by mouth twice daily CIPRO 500 MG TAB 308080 CIPROFLOXACIN HCL Inactive Vital Signs Date Name [...] 4.3-6.0 Encounters Code Encounter Date Provider Facility CPT-98100 Level 4 Est. Patient 12:31:54 CDT Bertrand marquez [facility] CPT-54572 Level 3 Est. Patient 11:27:00 INSURANCE CLAIM AUDITOR Ike Deluna MD [facility]-40980 Level 3 Est. Patient 08:50:57 INSURANCE CLAIM AUDITOR Dangelo BARAJAS [facility] CPT-11108 Level 3 Est. Patient 10:04:13 CDT Bertrand marquez [facility]-43123 Level 4 Est. Patient 16:02:10 INSURANCE CLAIM AUDITOR Dangelo TRIBUNAL MEMBER [facility] CPT-49364 Level 3 Est. Patient 13:04:54 INSURANCE CLAIM AUDITOR Dangelo TRIBUNAL MEMBER [facility]-28449 Level 3 Est. Patient 12:56:37 CDT Bertrand marquez [facility] CPT-25268 Level 3 Est. Patient 19:12:03 CDT Yoli tolbert MD PhD [facility] CPT-59773 Level 3 Est. Patient 14:36:01 CDT Yoli tolbert MD [facility]-39704 Level 2 Est. Patient 08:00:22 CDT Jcarlos dc MD [facility]-12281 Level 3 Est. Patient 19:06:55 CDT Bertrand marquez [facility] CPT-03499 Level 3 Est. Patient 10:08:23 INSURANCE CLAIM AUDITOR Bertrand marquez [facility]-16388 Level 3 Est. Patient 16:37:54 INSURANCE CLAIM AUDITOR Bertrand marquez [facility] CPT-31265 Level 3 Est. Patient 11:31:59 INSURANCE CLAIM AUDITOR Bertrand marquez [facility] CPT-75489 Level 3 Est. Patient 10:20:08 CDT Adolfo OSORIO [facility]-78250 Level 3 Est. Patient 13:45:20 CDT Sanket Ankit buckley [facility] CPT-97283 Level 3 Est. Patient 12:51:06 CDT Adolfo Monroyridge halljacklyn [facility] CPT-10901 Level 3 Est. Patient 11:22:51 INSURANCE CLAIM AUDITOR Yoli tolbert MD PhD [facility] CPT-95224 Level 3 Est. Patient 13:33:19 CDT Bertrand Sabillon ee DO [facility] Procedures Code Procedure Name Date Entry Date Standard Desc ription CPT-98017 Wound Culture - LAB USE ONLY 15:45:25 CDT 2 CPT-52132 Venipuncture Draw Fee 10:23:01 CDT CPT-J0696 Rocephin 1000 mg (Ceftriaxone) 16:20:30 INSURANCE CLAIM AUDITOR CPT-10434 Abx/Therapy Injection 16:20:29 INSURANCE CLAIM AUDITOR CPT-J0696 Rocephin 1gm Inj Solr 15:51:59 INSURANCE CLAIM AUDITOR CPT-38766 Chest 2V Frontal and Lat 15:20:28 INSURANCE CLAIM AUDITOR 07/22 CPT-97273 Breathing Tx 14:51:55 INSURANCE CLAIM AUDITOR CPT-98114 Breathing Tx 09:57:16 INSURANCE CLAIM AUDITOR CPT-32519 Knee comp 4/> V 11:58:06 INSURANCE CLAIM AUDITOR
--- OUTSIDE RECORDS SUMMARY | 2019-11-13 10:03 | XMS REPORT | Clinical Summary ---
Author Author Admin, Enrique Adamson Organization [employer] Address Unknown Phone Unavailable Allergies, Adverse Reactions, [...] NDC Status Provider Patient Instruction VITAMIN D3 81720 UNIT CAPS 1 pill Week x 4 months for vitamin D deficiency/osteoporosis CHOLECALCIFEROL 45937591737 Active Darlyn Monzon Active BENZONATATE 200 MG ORAL CAPS 1 three times a day as needed for c ough BENZONATATE 58733907885 Active Ike Deluna MD Acti ve ZITHROMAX Z-MARTIN 250 MG TABS 2 today and then 1 daily for 4 days 201 12/01/06 AZITHROMYCIN 44912020094 Active Ike Deluna MD Active ADDERALL 10 MG ORAL TABS 1 tab twice daily AMPHETAMINE-DEXTROAMPHETAMINE 83025627697 Active Ike Deluna MD Active BACTROBAN 2 % CREAM Apply to affected area BID for up to 10 days MUPIROCIN CALCIUM 37305963879 No Longer Active Ike Deluna MD Active CIPRO 500 MG TAB 1 tablet by mouth twice daily CIPROFLOXACIN HCL 90134471231 No Longer Active Adriana Bender LPN Active AUGMENTIN 875-125 MG TAB 1 po BID x 10 days AMOXICILLIN- POT CLAVULANATE 04106499407 No Longer Active Adriana Bender LPN Active MODAFINIL 200 MG ORAL TABS Take 1/2 tab po in the am and 1/2 tab po at noon MODAFINIL 30366008998 Active Darlyn Monzon A ctive CYCLOBENZAPRINE HCL 10 MG TABS Take 1 tab TID PRN for muscle pain CYCLOBENZAPRINE HCL 27749045314 No Longer Active Bertrand Patel DO Ac tive TESSALON PERLES 100 MG CAP 1 tablet by mouth 3 times daily 07/07 BENZONATATE 66861082166 No Longer Active Bertrand Patel DO Ac tive NEBULIZER MISC use as directed NEBULIZERS 300331 32241 No Longer Active Bertrand Patel DO Active ALBUTEROL SULFATE 0.083 % NEBU SOLN one vial per nebul izer every 4-6 hours as needed ALBUTEROL SULFATE 43795161817 No Longer Active Bertrand Patel DO Active SYMBICORT 160-4.5 MCG/ACT AERO 2 puffs BID BUDESONIDE- FORMOTEROL FUMARATE 65148794479 No Longer Active Bertrand Patel DO Ac tive PREDNISONE 20 MG TAB take 3 tabs daily for 3 days , 2 tabs daily for 3 days, 1 tab daily for 3 days, 1/2 tab daily for 3 days P REDNISONE 82659008050 No Longer Active Silvia Arnold APRN Active AZITHROMYCIN 250 MG ORAL TABS Take 2 tabs po today then 1 ta b po daily AZITHROMYCIN 86602542453 No Longer Active Silvia Jorge leslye TOVARN Active AUGMENTIN 875-125 MG TAB 1 po BID x 10 days AMOXICILLIN- POT CLAVULANATE 70381002696 No Longer Active Adriana Bender LPN Active CHEWABLE CALCIUM 500-200-40 MG-UNT-MCG ORAL CHEW 1 chew tab bid 201 11/03/03 CALCIUM-VITAMIN D-VITAMIN K 87629979533 Active Silvia Arnold APRN Active EQ COMPLETE MULTIVIT ADULT 50+ ORAL TABS 1 tab po bid MULTIPLE VITAMINS-MINERALS 73018710967 Active Silvia Arnold APRN Act jairo HYDROCODONE-ACETAMINOPHEN 7.5-325 MG TABS TAKE ONE TAB EVERY 6 HOURS BY MOUTH NEEDED FOR PAIN HYDROCODONE-ACETAMINOPHEN 03572730250 Acti raheel Mcmullen Active LORTAB 7.5-500 MG TABS take one po Q6 hours HYDROCODONE-ACETAMINOPHEN No Longer Active Nirmal Robbins RN Active [facility] MELATONIN 5-10 MG CR-TABS Take one by mouth daily at bedtime MELATONIN-PYRIDOXINE 38741646109 No Longer Active Bertrand Patel DO Active VITAMIN E 200 UNIT CAPS 1 cap po qd VITAMIN E 316 01216286 No Longer Active Bertrand Patel DO Active B-12 1000 MCG CAPS 1 tab daily CYANOCOBALAMIN 31 290099634 No Longer Active Bertrand Patel DO Active METFORMIN HCL 500 MG TABS 1 bid METFORMIN HCL 56199766527 No Longer Active Bertrand Patel DO Active FUROSEMIDE 20 MG TABS 1 pill by mouth daily if needed for edema FUROSEMIDE 54776919877 No Longer Active Bertrand Patel DO Act jairo PRAVASTATIN SODIUM 20 MG TABS 1 tablet by mouth daily at bedtime PRAVASTATIN SODIUM 89717409659 No Longer Active Bertrand Patel DO Active AUGMENTIN 875-125 MG TABS 1 pill by mouth twice daily AMOXICILLIN-POT CLAVULANATE 16741660642 No Longer Active Yoli Mercado MD PhD Active LEVAQUIN 500 MG TABS 1 pill by mouth daily LEVO FLOXACIN 63593151752 No Longer Active Yoli Mercado MD PhD Active AMLODIPINE BESYLATE 5 MG TABS 1 tablet by mouth daily for bl ood pressure AMLODIPINE BESYLATE 37909483553 Active Darlyn Monzon Active MICARDIS 80 MG TABS 1 tablet daily for blood pressure TELMISARTAN 05864985202 Active Darlyn Monzon Active MICARDIS HCT 80-12.5 MG TABS 1 qd TELMISARTA N-HCTZ 89601015407 No Longer Active Bertrand Patel DO Active CINNAMON ALPHA LIPOIC AC CMPLX CAPS by mouth twice a d ay in AM by mouth twice a day in PM ALPHA LIPOIC EXEQ-CQ-ESELJHLR CAPS 992933 31924 No Longer Active Bertrand Patel DO Active AZITHROMYCIN 500 MG SOLR 1 po q day AZITHROMYCI N 88166016043 No Longer Active Bertrand Patel DO Active CYMBALTA 30 MG CPEP 1 cap by mouth daily DULOXE CATHI HCL 83088151160 No Longer Active Bertrand Patel DO Active CYMBALTA 60 MG CPEP 1 cap by mouth daily DULOXE CATHI HCL 71232903584 Active Keysha Jones MA Active WELLBUTRIN 75 MG TABS 2 times daily BUPROPION H CL 51829368322 No Longer Active Bertrand W Jorge DO Active PROAIR HFA 108 (90 BASE) MCG/ACT AERS take one to two puffs po Q4-6 hour prn cough and shortness of breath ALBUTEROL SULFATE 1453721472 2 Active Silvia Arnold [employer] Active AZITHROMYCIN 250 MG TABS take 2 po today then take 1 po days 2-5 AZITHROMYCIN 02765939012 No Longer Active Adolfo OSORIO Active PERMETHRIN 5 % CREA apply neck to toes tonight a nd then rinse off in morning. repeat at 7 days PERMETHRIN 99280305807 No Longer Active Adolfo OSORIO Active AMOXICILLIN 500 MG CAPS 2 po BID x 10 days AMOX ICILLIN 92164232635 No Longer Active Yoli Mercado MD PhD Active ALPRAZOLAM 0.5 MG TAB 1 tab by mouth tid ALPRAZOL AM 50798044473 Active Nitza Mullins RPT,RMA Active INSUPEN ULTRAFIN 31G X 6 MM MISC USE DIRECTED 03/04 INSULIN PEN NEEDLE 62127820915 No Longer Active Bertrand Patel DO Active TRANSDERM-SCOP 1.5 MG PT72 1 patch applied behind ear q 3 day 20 04/13/28 SCOPOLAMINE BASE 85757703374 No Longer Active Bertrand Patel DO Active MACRODANTIN 100 MG CAPS one p.o. b.i.d. x2 weeks 03/04 NITROFURANTOIN MACROCRYSTAL 63882152619 No Longer Active Bertrand Patel DO Active MACRODANTIN 100 MG CAPS one p.o. b.i.d. x2 weeks 03/04 MACRODANTIN 100 MG CAPS 3400536 NITROFURANTOIN MACROCRYSTAL Inactive TRANSDERM-SCOP 1.5 MG PT72 [...] at 7 days PERMETHRIN 5 % CREA 255144 PERMETHRIN Inactive WELLBUTRIN 75 MG TABS 2 times daily WELLBUTRIN 75 MG TABS BUPROPION HCL Inactive CYMBALTA 30 MG CPEP 1 cap by mouth daily CYMBALTA 30 MG CPEP 354058 DULOXETINE HCL Inactive AZITHROMYCIN 500 MG SOLR 1 po q day ALTA THROMYCIN 500 MG SOLR 51336815743 AZITHROMYCIN Inactive CINNAMON ALPHA LIPOIC AC CMPLX CAPS by mouth twice a d ay in AM by mouth twice a day in PM CINNAMON ALPHA LIPOIC AC CMPLX CAPS ALPHA LIPOIC FONH-ND-VDPWOTJH CAPS Inactive MICARDIS HCT 80-12.5 MG TABS 1 qd MICARDI S HCT 80-12.5 MG TABS 351847 TELMISARTAN-HCTZ Inactive PRAVASTATIN SODIUM 20 MG TABS 1 tablet by mouth daily at bedtime PRAVASTATIN SODIUM 20 MG TABS 694514 PRAVASTATIN SODIUM Inactive FUROSEMIDE 20 MG TABS 1 pill by mouth daily if needed for edema FUROSEMIDE 20 MG TABS 499580 FUROSEMIDE Inactive METFORMIN HCL 500 MG TABS 1 bid METFORMIN HCL 500 MG TABS 990446 METFORMIN HCL Inactive B-12 1000 MCG CAPS 1 tab daily B-12 1000 MCG CAP S CYANOCOBALAMIN Inactive VITAMIN E 200 UNIT CAPS 1 cap po qd VITAMIN E 2 00 UNIT CAPS 2754332 VITAMIN E Inactive [facility] MELATONIN 5-10 MG CR-TABS Take one by mouth daily at bedtime [facility] MELATONIN 5-10 MG CR-TABS MELATONIN-PYRIDOXI NE Inactive LORTAB 7.5-500 MG TABS take one po Q6 hours LORTAB 7.5-500 MG TABS HYDROCODONE-ACETAMINOPHEN Inactive AZITHROMYCIN 250 MG ORAL TABS Take 2 tabs po today then 1 ta b po daily AZITHROMYCIN 250 MG ORAL TABS 2048626 AZITHROMYCI N Inactive SYMBICORT 160-4.5 MCG/ACT AERO 2 puffs BID SYMBICORT 160- 4.5 MCG/ACT AERO BUDESONIDE-FORMOTEROL FUMARATE Inactive ALBUTEROL SULFATE 0.083 % NEBU SOLN one vial per nebul izer every 4-6 hours as needed ALBUTEROL SULFATE 0.083 % NEBU SOLN 77301 8 ALBUTEROL SULFATE Inactive NEBULIZER MISC use as directed NEBULIZER MISC NEBULIZERS Inactive TESSALON PERLES 100 MG CAP 1 tablet by mouth 3 times daily 07/07 TESSALON PERLES 100 MG CAP 865149 BENZONATATE Inact jairo CYCLOBENZAPRINE HCL 10 MG TABS Take 1 tab TID PRN for muscle pain CYCLOBENZAPRINE HCL 10 MG TABS 016409 CYCLOBENZAPRINE HCL Inactive AUGMENTIN 875-125 MG TAB 1 po BID x 10 days AUGMENTIN 875- 125 MG TAB 132259 AMOXICILLIN-POT CLAVULANATE Inactive BACTROBAN 2 % CREAM Apply to affected area BID for up to 10 days BACTROBAN 2 % CREAM 356593 MUPIROCIN CALCIUM Inactive AMOXICILLIN 500 MG CAPS 2 po BID x 10 days AMOXICILLIN 500 MG CAPS 071049 AMOXICILLIN Inactive AZITHROMYCIN 250 MG TABS take 2 po today then take 1 po days 2-5 AZITHROMYCIN 250 MG TABS 0034554 AZITHROMYCIN Inactiv e LEVAQUIN 500 MG TABS 1 pill by mouth daily LEVAQUIN 500 MG TABS 173213 LEVOFLOXACIN Inactive AUGMENTIN 875-125 MG TABS 1 pill by mouth twice daily AUGMENTIN 875-125 MG TABS 929636 AMOXICILLIN-POT CLAVULANATE Inacti ve AUGMENTIN 875-125 MG TAB 1 po BID x 10 days AUGMENTIN 875- 125 MG TAB 299990 AMOXICILLIN-POT CLAVULANATE Inactive PREDNISONE 20 MG TAB take 3 tabs daily for 3 days , 2 tabs daily for 3 days, 1 tab daily for 3 days, 1/2 tab daily for 3 days PREDNISONE 20 MG TAB 308403 PREDNISONE Inactive CIPRO 500 MG TAB 1 tablet by mouth twice daily CIPRO 500 MG TAB 527129 CIPROFLOXACIN HCL Inactive Vital Signs Date Name Value Unit Range Description blood pressure, diastolic - 8462-4 82 mm[Hg] BP [place] blood pressure, systolic - 8480-6 145 mm[Hg] BP sys pulse rate E&M - 8867-4 83 /min H eart rate temperature E&M 97.8 [degF] Body temp erature weight E&M - 3141-9 338.1 [lb_av] Weigh t Measured blood pressure, diastolic [...] - 3141-9 303.4 [lb_av] Weigh t Measured Diagnostic Results Date Name Value Unit Range Description Lab Report: FSH AND LH/7137/Adult - Chem istry follicle stimulating hormone, serum 62.5 m[iU]/mL luteinizing hormone, serum 29.6 m[iU]/mL Lab Report: HGBA1C - Chemistry hemoglobin A1C, blood, as % of total hemoglobin 6.2 % 4.3-6.0 Lab Report: HGBA1C, Lipid Panel, MICROAL B/CREAT W/RATIO, Thyroid Stimula ... - Chemistry hemoglobin A1C, blood, as % of total hemoglobin 5.8 % 4.3-6.0 cholesterol, serum 200 mg/dL 877-973 6374/07/22 triglyceride, serum, fasting 56 mg/dL 30-200 HDL cholesterol, serum 80 mg/dL 32-96 LDL cholesterol, serum 109 mg/dL 0-130 albumin/creatinine ratio, urine < 30 mg/g mg/g{creat} 0-2 9 TSH 1.16 m[iU]/mL 0.36-3.74 sodium, serum 142 mmol/L 106-105 3391/07/22 carbon dioxide, venous blood 33.1 mmol/L 21.0-32 [...] 0-19 Encounters Code Encounter Date Provider Facility CPT-69262 Level 4 Est. Patient 12:31:54 CDT Bertrand marquez [facility] CPT-08184 Level 3 Est. Patient 11:27:00 [employer] Ike Deluna MD [facility] CPT-97130 Level 3 Est. Patient 08:50:57 [employer] Dangelo [employer] [facility] CPT-84634 Level 3 Est. Patient 10:04:13 CDT Bertrand marquez [facility] CPT-98245 Level 4 Est. Patient 16:02:10 [employer]ER Dangelo [employer] [facility] CPT-84031 Level 3 Est. Patient 13:04:54 [employer] Dangelo BARAJAS [facility] CPT-48278 Level 3 Est. Patient 12:56:37 CDT Bertrand marquez [facility] CPT-33912 Level 3 Est. Patient 19:12:03 CDT Yoli tolbert MD [facility] CPT-13710 Level 3 Est. Patient 14:36:01 CDT Yoli tolbert MD [facility] CPT-13132 Level 2 Est. Patient 08:00:22 CDT Jcarlos dc MD [facility]-40103 Level 3 Est. Patient 19:06:55 CDT Bertrand marquez [facility] CPT-71883 Level 3 Est. Patient 10:08:23 [employer] Bertrand marquez [facility] CPT-07771 Level 3 Est. Patient 16:37:54 [employer] Bertrand marquez [facility] CPT-21478 Level 3 Est. Patient 11:31:59 [employer] Bertrand marquez [facility] CPT-04664 Level 3 Est. Patient 10:20:08 CDT Adolfo villasenor [facility] CPT-76758 Level 3 Est. Patient 13:45:20 CDT Sanket buckley [facility] CPT-62956 Level 3 Est. Patient 12:51:06 CDT Adolfo villasenor [facility] CPT-65618 Level 3 Est. Patient 11:22:51 [employer] Yoli tolbert MD [facility] CPT-44986 Level 3 Est. Patient 13:33:19 CDT Bertrand marquez [facility] Procedures Code Procedure Name Date Entry Date Standard Desc ription CPT-74051 Wound Culture - LAB USE ONLY 15:45:25 CDT 2 CPT-28500 Venipuncture Draw Fee 10:23:01 CDT CPT-J0696 Rocephin 1000 mg (Ceftriaxone) 16:20:30 [employer] CPT-71197 Abx/Therapy Injection 16:20:29 [employer] CPT-J0696 Rocephin 1gm Inj Solr 15:51:59 [employer] CPT-99959 Chest 2V Frontal and Lat 15:20:28 [employer] 07/22 CPT-28867 Breathing Tx 14:51:55 [employer] CPT-50816 Breathing Tx 09:57:16 [employer] CPT-80269 Knee comp 4/> V 11:58:06 [employer]ER
--- OUTSIDE RECORDS SUMMARY | 2019-11-13 10:03 | XMS REPORT | Clinical Summary ---
Author Author Admin, Enrique Adamson Organization [employer] Address Unknown Phone Unavailable Allergies, Adverse Reactions, [...] MD PhD Polyuria Cellulitis, leg, right 682.6 Active Yoli sabillon MD PhD Cellulitis and abscess of leg, except foot Foreign body, ear 931 Resolved Yoli Mercado MD PhD Foreign body in ear Obstructive sleep apnea 327.23 Active Bertrand Redmond DO Obstructive sleep apnea (adult) (pediatric) Fatigue 780.79 Active Bertrand Patel DO Oth er malaise and fatigue Headache 784.0 Active Bertrand Patel DO He adache Cough 786.2 Active Silvia Arnold APRN Cough SINUSITIS, ACUTE 461.9 Active Silvia PARISI supervisor char house sinusitis, unspecified Fatigue 780.79 Active Silvia Arnold APRN Other malaise and fatigue Bronchitis acute with bronchospasm 466.0 Active 2 Silvia Arnold APRN Acute bronchitis Narcolepsy 347.00 Active Bertrand Patel DO Narcolepsy without cataplexy Animal bite 919.8 Active Silvia Arnold APRN Other and unspecified superficial injury of other, multiple, and unspecified sites, without mention of infection SCABIES ICD-133.0 Inactive Yoli Mercado MD PhD 201 07/14/20 HEALTH SCREENING ICD-V70.0 Inactive Yoli sabillon MD PhD COUGH ICD-786.2 Inactive Yoli Mercado MD PhD 201 09/09/28 SHORTNESS OF BREATH ICD-786.05 Inactive Yoli Mercado MD PhD RIB PAIN, RIGHT SIDED ICD-786.50 Inactive Yoli Mercado MD PhD Pharyngitis-Acute ICD-462 Inactive Bertrand Redmond DO Polyuria ICD-788.42 Inactive Yoli Mercado MD P Foreign body, ear ICD-931 Inactive Yoli salazar MD PhD FH DIABETES ICD-V18.0 Inactive Yoli Mercado MD PhD 20 14/02/29 SINUSITIS, FRONTAL, ACUTE ICD-461.1 Inactive Yoli Mercado MD PhD Medication List Medication Instructions Start Date Stop Date Generic Name NDC Status Provider Patient Instruction BACTROBAN 2 % CREAM Apply to affected area BID for up to 10 days 20 18/03/27 MUPIROCIN CALCIUM 12171366593 Active Silvia Arnold APRN Act jairo AUGMENTIN 875-125 MG TAB 1 po BID x 10 days AMOXICILLIN- POT CLAVULANATE 15526580619 Active Silvia Arnold APRN Activ e MODAFINIL 200 MG ORAL TABS Take 1/2 tab po in the am and 1/2 tab po at noon MODAFINIL 46662779972 Active Silvia Arnold APRN Active CYCLOBENZAPRINE HCL 10 MG TABS Take 1 tab TID PRN for muscle pain CYCLOBENZAPRINE HCL 53516545253 No Longer Active Bertrand Patel DO Ac tive TESSALON PERLES 100 MG CAP 1 tablet by mouth 3 times daily 07/07 BENZONATATE 81462027315 No Longer Active Bertrand Patel DO Ac tive NEBULIZER MISC use as directed NEBULIZERS 925039 08420 No Longer Active Bertrand Patel DO Active ALBUTEROL SULFATE 0.083 % NEBU SOLN one vial per nebul izer every 4-6 hours as needed ALBUTEROL SULFATE 44794862794 No Longer Active Bertrand Patel DO Active SYMBICORT 160-4.5 MCG/ACT AERO 2 puffs BID BUDESONIDE- FORMOTEROL FUMARATE 48664619683 No Longer Active Bertrand Patel DO Ac tive PREDNISONE 20 MG TAB take 3 tabs daily for 3 days , 2 tabs daily for 3 days, 1 tab daily for 3 days, 1/2 tab daily for 3 days P REDNISONE 74509206227 No Longer Active Silvia Arnold APRN Active AZITHROMYCIN 250 MG ORAL TABS Take 2 tabs po today then 1 ta b po daily AZITHROMYCIN 73258979457 No Longer Active Silvia gavin APRN Active AUGMENTIN 875-125 MG TAB 1 po BID x 10 days AMOXICILLIN- POT CLAVULANATE 14391469352 No Longer Active Adriana Bender LPN Active CHEWABLE CALCIUM 500-200-40 MG-UNT-MCG ORAL CHEW 1 chew tab bid 201 11/03/03 CALCIUM-VITAMIN D-VITAMIN K 57899139272 Active Silvia Arnold APRN Active EQ COMPLETE MULTIVIT ADULT 50+ ORAL TABS 1 tab po bid MULTIPLE VITAMINS-MINERALS 19515304484 Active Silvia Arnold APRN Act jairo HYDROCODONE-ACETAMINOPHEN 7.5-325 MG TABS TAKE ONE TAB EVERY 6 HOURS BY MOUTH NEEDED FOR PAIN HYDROCODONE-ACETAMINOPHEN 22252159316 Acti raheel العلي Active LORTAB 7.5-500 MG TABS take one po Q6 hours HYDROCODONE-ACETAMINOPHEN No Longer Active Nirmal Robbins RN Active [facility] MELATON[facility] 5-10 MG CR-TABS Take one by mouth daily at bedtime MELATONIN-PYRIDOXINE 02530882965 No Longer Active Bertrand Patel DO Active VITAMIN E 200 UNIT CAPS 1 cap po qd VITAMIN E 316 92846531 No Longer Active Bertrand Patel DO Active B-12 1000 MCG CAPS 1 tab daily CYANOCOBALAMIN 31 645858670 No Longer Active Bertrand Patel DO Active METFORMIN HCL 500 MG TABS 1 bid METFORMIN HCL 72875157403 No Longer Active Bertrand Patel DO Active FUROSEMIDE 20 MG TABS 1 pill by mouth daily if needed for edema FUROSEMIDE 71467560965 No Longer Active Bertrand Patel DO Act jairo PRAVASTATIN SODIUM 20 MG TABS 1 tablet by mouth daily at bedtime PRAVASTATIN SODIUM 88977370670 No Longer Active Bertrand Patel DO Active AUGMENTIN 875-125 MG TABS 1 pill by mouth twice daily AMOXICILLIN-POT CLAVULANATE 04227221865 No Longer Active Yoli Mercado MD PhD Active LEVAQUIN 500 MG TABS 1 pill by mouth daily LEVO FLOXACIN 65012442575 No Longer Active Yoli Mercado MD PhD Active AMLODIPINE BESYLATE 5 MG TABS 1 tablet by mouth daily for bl ood pressure AMLODIPINE BESYLATE 43595589539 Active Keysha Jones MA Active MICARDIS 80 MG TABS 1 tablet daily for blood pressure TELMISARTAN 18000503551 Active Keysha Jones MA Active MICARDIS HCT 80-12.5 MG TABS 1 qd TELMISARTA N-HCTZ 53280762166 No Longer Active Bertrand Patel DO Active CINNAMON ALPHA LIPOIC AC CMPLX CAPS by mouth twice a d ay in AM by mouth twice a day in PM ALPHA LIPOIC GJNE-AS-IWKJMJOY CAPS 540235 85294 No Longer Active Bertrand Patel DO Active AZITHROMYCIN 500 MG SOLR 1 po q day AZITHROMYCI N 97083686038 No Longer Active Bertrand Patel DO Active CYMBALTA 30 MG CPEP 1 cap by mouth daily DULOXE CATHI HCL 15044036890 No Longer Active Bertrand Patel DO Active CYMBALTA 60 MG CPEP 1 cap by mouth daily DULOXE CATHI HCL 30771212183 Active Keysha Jones MA Active WELLBUTRIN 75 MG TABS 2 times daily BUPROPION H CL 90558158946 No Longer Active Bertrand Patel DO Active PROAIR HFA 108 (90 BASE) MCG/ACT AERS take one to two puffs po Q4-6 hour prn cough and shortness of breath ALBUTEROL SULFATE 3229996882 2 Active Silvia Arnold WALLPAPER HANGER Active AZITHROMYCIN 250 MG TABS take 2 po today then take 1 po days 2-5 AZITHROMYCIN 25571788338 No Longer Active Adolfo OSORIO Active PERMETHRIN 5 % CREA apply neck to toes tonight a nd then rinse off in morning. repeat at 7 days PERMETHRIN 90588392380 No Longer Active Adolfo OSORIO Active AMOXICILLIN 500 MG CAPS 2 po BID x 10 days AMOX ICILLIN 87617094444 No Longer Active Yoli Mercado MD PhD Active ALPRAZOLAM 0.5 MG TAB 1 tab by mouth tid ALPRAZOL AM 55927043356 Active Nitza Mullins RPT,RMA Active INSUPEN ULTRAFIN 31G X 6 MM MISC USE DIRECTED 03/04 INSULIN PEN NEEDLE 60368090461 No Longer Active Bertrand Patel DO Active TRANSDERM-SCOP 1.5 MG PT72 1 patch applied behind ear q 3 day 20 04/13/28 SCOPOLAMINE BASE 96100935158 No Longer Active Bertrand Patel DO Active MACRODANTIN 100 MG CAPS one p.o. b.i.d. x2 weeks 03/04 NITROFURANTOIN MACROCRYSTAL 32170381407 No Longer Active Bertrand Patel DO Active MACRODANTIN 100 MG CAPS one p.o. b.i.d. x2 weeks 03/04 MACRODANTIN 100 MG CAPS 5251022 NITROFURANTOIN MACROCRYSTAL Inactive TRANSDERM-SCOP 1.5 MG PT72 [...] at 7 days PERMETHRIN 5 % CREA 486035 PERMETHRIN Inactive WELLBUTRIN 75 MG TABS 2 times daily WELLBUTRIN 75 MG TABS BUPROPION HCL Inactive CYMBALTA 30 MG CPEP 1 cap by mouth daily CYMBALTA 30 MG CPEP 701585 DULOXETINE HCL Inactive AZITHROMYCIN 500 MG SOLR 1 po q day ALTA THROMYCIN 500 MG SOLR 94195080120 AZITHROMYCIN Inactive CINNAMON ALPHA LIPOIC AC CMPLX CAPS by mouth twice a d ay in AM by mouth twice a day in PM CINNAMON ALPHA LIPOIC AC CMPLX CAPS ALPHA LIPOIC GFLL-DH-DNMEFXOY CAPS Inactive MICARDIS HCT 80-12.5 MG TABS 1 qd MICARDI S HCT 80-12.5 MG TABS 358145 TELMISARTAN-HCTZ Inactive PRAVASTATIN SODIUM 20 MG TABS 1 tablet by mouth daily at bedtime PRAVASTATIN SODIUM 20 MG TABS 853697 PRAVASTATIN SODIUM Inactive FUROSEMIDE 20 MG TABS 1 pill by mouth daily if needed for edema FUROSEMIDE 20 MG TABS 679103 FUROSEMIDE Inactive METFORMIN HCL 500 MG TABS 1 bid METFORMIN HCL 500 MG TABS 009736 METFORMIN HCL Inactive B-12 1000 MCG CAPS 1 tab daily B-12 1000 MCG CAP S CYANOCOBALAMIN Inactive VITAMIN E 200 UNIT CAPS 1 cap po qd VITAMIN E 2 00 UNIT CAPS 8417312 VITAMIN E Inactive [facility] MELAT[facility]IN 5-10 MG CR-TABS Take one by mouth daily at bedtime [facility] MELATONIN 5-10 MG CR-TABS MELATONIN-PYRIDOXI NE Inactive LORTAB 7.5-500 MG TABS take one po Q6 hours LORTAB 7.5-500 MG TABS HYDROCODONE-ACETAMINOPHEN Inactive AZITHROMYCIN 250 MG ORAL TABS Take 2 tabs po today then 1 ta b po daily AZITHROMYCIN 250 MG ORAL TABS 0653168 AZITHROMYCI N Inactive SYMBICORT 160-4.5 MCG/ACT AERO 2 puffs BID SYMBICORT 160- 4.5 MCG/ACT AERO BUDESONIDE-FORMOTEROL FUMARATE Inactive ALBUTEROL SULFATE 0.083 % NEBU SOLN one vial per nebul izer every 4-6 hours as needed ALBUTEROL SULFATE 0.083 % NEBU SOLN 19700 8 ALBUTEROL SULFATE Inactive NEBULIZER MISC use as directed NEBULIZER MISC NEBULIZERS Inactive TESSALON PERLES 100 MG CAP 1 tablet by mouth 3 times daily 07/07 TESSALON PERLES 100 MG CAP 764278 BENZONATATE Inact jairo CYCLOBENZAPRINE HCL 10 MG TABS Take 1 tab TID PRN for muscle pain CYCLOBENZAPRINE HCL 10 MG TABS 825083 CYCLOBENZAPRINE HCL Inactive AMOXICILLIN 500 MG CAPS 2 po BID x 10 days AMOXICILLIN 500 MG CAPS 048429 AMOXICILLIN Inactive AZITHROMYCIN 250 MG TABS take 2 po today then take 1 po days 2-5 AZITHROMYCIN 250 MG TABS 1183809 AZITHROMYCIN Inactiv e LEVAQUIN 500 MG TABS 1 pill by mouth daily LEVAQUIN 500 MG TABS 195046 LEVOFLOXACIN Inactive AUGMENTIN 875-125 MG TABS 1 pill by mouth twice daily AUGMENTIN 875-125 MG TABS 083728 AMOXICILLIN-POT CLAVULANATE Inacti ve AUGMENTIN 875-125 MG TAB 1 po BID x 10 days AUGMENTIN 875- 125 MG TAB 501144 AMOXICILLIN-POT CLAVULANATE Inactive PREDNISONE 20 MG TAB take 3 tabs daily for 3 days , 2 tabs daily for 3 days, 1 tab daily for 3 days, 1/2 tab daily for 3 days PREDNISONE 20 MG TAB 932561 PREDNISONE Inactive Vital Signs Date Name Value Unit Range Description blood pressure, diastolic - 8462-4 88 mm[Hg] [...] - 3141-9 308 [lb_av] Weigh t Measured blood pressure, diastolic - 8462-4 91 mm[Hg] BP frederick blood pressure, systolic - 8480-6 138 mm[Hg] BP sys pulse rate E&M - 8867-4 99 /min H eart rate temperature E&M 99.4 [degF] Body temp erature weight E&M - 3141-9 302 [lb_av] Weigh t Measured Diagnostic Results Date Name Value Unit Range Description Lab Report: CBC W/DIFF - Hematology hemoglobin, blood 12.5 g/dL 12.0-16.0 hematocrit, blood 37.4 % 36.0-46.0 mean corpuscular volume, RBC 95 fL 80-97 mean corpuscular hemoglobin, RBC 31.6 pg 27. 0-31.2 mean corpuscular hemoglobin concentration, RBC 33.3 G/DL % 31.8-35.4 red blood cell distribution width 14.6 % 11 .6-14.8 platelet count 339 10^3/MM^3 10*3/mm3 635-874 2285/02/19 erythrocyte (RBC) count 3.95 10^6/MM^3 10*6/mm3 4.04-5.4 8 lymphocytes as percent of blood leukocytes 39.3 % 20.5-51.1 monocytes as percent of blood leukocytes 9.8 % 1.7-9.3 neutrophils as percent of blood leukocytes 44.9 % 42.2-75.2 leukocyte count, blood 10.4 10^3/MM^3 10*3/mm3 4.6-10.2 Lab Report: HGBA1C, Lipid Panel, MICROAL B/CREAT W/RATIO, Thyroid Stimula ... - Chemistry calcium, serum 8.7 mg/dL 8.5-10.1 bilirubin, serum, total 0.40 mg/dL 0.00-1.00 sodium, serum 142 mmol/L 375-880 0426/07/22 carbon dioxide, venous blood 33.1 mmol/L 21.0-32 .0 potassium, serum 4.6 mmol/L 3.5-5.2 chloride, serum 105 mmol/L 98-107 blood glucose 96 mg/dL 65-110 urea nitrogen, blood 16 mg/dL 7-18 creatinine, serum 0.69 mg/dL 0.55-1.30 alanine aminotransferase (SGPT), serum 22 U/L 12-78 aspartate aminotransferase (SGOT), serum 18 U/L 15-37 hemoglobin A1C, blood, as % of total hemoglobin 5.8 % 4.3-6.0 cholesterol, serum 200 mg/dL 325-252 1912/07/22 triglyceride, serum, fasting 56 mg/dL 30-200 HDL cholesterol, serum 80 mg/dL 32-96 LDL cholesterol, serum 109 mg/dL 0-130 albumin/creatinine ratio, urine < 30 mg/g mg/g{creat} 0-2 9 TSH 1.16 m[iU]/mL 0.36-3.74 Lab Report: HGBA1C, Lipid Panel, MICROAL B/CREAT [...] ... - Lab microalbumin, urine 10 0-19 Lab Report: JENNIFER INFLUENZA A/B, Myco Pn eumo - Toxicology rapid flu test Negative Negative;Positive Encounters Code Encounter Date Provider Facility CPT-94059 Level 3 Est. Patient 10:04:13 CDT Bertrand marquez [facility] CPT-25938 Level 4 Est. Patient 16:02:10 STEAM DRIER OPERATOR Dangelo BARAJAS [facility] CPT-98538 Level 3 Est. Patient 13:04:54 STEAM DRIER OPERATOR Dangelo BARAJAS [facility]-80365 Level 3 Est. Patient 12:56:37 CDT Bertrand marquez [facility] CPT-62819 Level 3 Est. Patient 19:12:03 CDT Yoli tolbert MD [facility]-80500 Level 3 Est. Patient 14:36:01 CDT Yoli tolbert MD [facility]-15254 Level 2 Est. Patient 08:00:22 CDT Jcarlos dc MD [facility]-69448 Level 3 Est. Patient 19:06:55 CDT Bertrand marquez [facility]-46776 Level 3 Est. Patient 10:08:23 STEAM DRIER OPERATOR Bertrand marquez [facility] CPT-05289 Level 3 Est. Patient 16:37:54 STEAM DRIER OPERATOR Bertrand marquez [facility] CPT-22703 Level 3 Est. Patient 11:31:59 STEAM DRIER OPERATOR Bertrand marquez [facility] CPT-50243 Level 3 Est. Patient 10:20:08 CDT Adolfo villasenor [facility]-41052 Level 3 Est. Patient 13:45:20 CDT Sanket buckley [facility] CPT-81984 Level 3 Est. Patient 12:51:06 CDT Adolfo villasenor [facility]-22220 Level 3 Est. Patient 11:22:51 STEAM DRIER OPERATOR Yoli tolbert MD [facility]-96103 Level 3 Est. Patient 13:33:19 CDT Bertrand marquez [facility] Procedures Code Procedure Name Date Entry Date Standard Desc ription CPT-72576 Wound Culture - LAB USE ONLY 15:45:25 CDT 2 CPT-00876 Venipuncture Draw Fee 10:23:01 CDT CPT-J0696 Rocephin 1000 mg (Ceftriaxone) 16:20:30 STEAM DRIER OPERATOR CPT-60058 Abx/Therapy Injection 16:20:29 STEAM DRIER OPERATOR CPT-J0696 Rocephin 1gm Inj Solr 15:51:59 STEAM DRIER OPERATOR CPT-40199 Chest 2V Frontal and Lat 15:20:28 STEAM DRIER OPERATOR 07/22 CPT-58297 Breathing Tx 14:51:55 STEAM DRIER OPERATOR CPT-70725 Breathing Tx 09:57:16 STEAM DRIER OPERATOR CPT-21420 Knee comp 4/> V 11:58:06 STEAM DRIER OPERATOR
--- OUTSIDE RECORDS SUMMARY | 2019-11-13 10:03 | XMS REPORT | Clinical Summary ---
Author Author Admin, Enrique Adamson Organization [employer] Address Unknown Phone Unavailable Allergies, Adverse Reactions, [...] day as needed for c ough BENZONATATE [id number] Active Ike Deluna MD Acti ve ZITHROMAX Z-MARTIN 250 MG TABS 2 today and then 1 daily for 4 days 201 12/01/06 AZITHROMYCIN 43169398131 Active Ike Deluna MD Active ADDERALL 10 MG ORAL TABS 1 tab twice daily AMPHETAMINE-DEXTROAMPHETAMINE 63394520073 Active Ike Deluna MD Active BACTROBAN 2 % CREAM Apply to affected area BID for up to 10 days MUPIROCIN CALCIUM 97738597774 No Longer Active Ike Deluna MD Active CIPRO 500 MG TAB 1 tablet by mouth twice daily CIPROFLOXACIN HCL 55162645184 No Longer Active Adriana Bender LPN Active AUGMENTIN 875-125 MG TAB 1 po BID x 10 days AMOXICILLIN- POT CLAVULANATE 12012254993 No Longer Active Adriana Bender LPN Active MODAFINIL 200 MG ORAL TABS Take 1/2 tab po in the am and 1/2 tab po at noon MODAFINIL 65510948095 Active Darlyn vega CYCLOBENZAPRINE HCL 10 MG TABS Take 1 tab TID PRN for muscle pain CYCLOBENZAPRINE HCL 18665366013 No Longer Active Bertrand Patel DO Ac tive TESSALON PERLES 100 MG CAP 1 tablet by mouth 3 times daily 07/07 BENZONATATE 45826574232 No Longer Active Bertrand Patel DO Ac tive NEBULIZER MISC use as directed NEBULIZERS 572857 75843 No Longer Active Bertrand Patel DO Active ALBUTEROL SULFATE 0.083 % NEBU SOLKelvin one vial per nebul izer every 4-6 hours as needed ALBUTEROL SULFATE 71081421811 No Longer Active Bertrand Patel DO Active SYMBICORT 160-4.5 MCG/ACT AERO 2 puffs BID BUDESONIDE- FORMOTEROL FUMARATE 30543240036 No Longer Active Bertrand Patel DO Ac tive PREDNISONE 20 MG TAB take 3 tabs daily for 3 days , 2 tabs daily for 3 days, 1 tab daily for 3 days, 1/2 tab daily for 3 days P REDNISONE 94879395766 No Longer Active Silvia Arnold APRN Active AZITHROMYCIN 250 MG ORAL TABS Take 2 tabs po today then 1 ta b po daily AZITHROMYCIN 76357390624 No Longer Active Silvia gavin [employer] 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 PROFESSIONAL 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 AUGMENTIN 875-125 MG TAB 1 po BID x 10 days AMOXICILLIN- POT CLAVULANATE 33555503271 No Longer Active Adriana Bender LPN Active CHEWABLE CALCIUM 500-200-40 MG-UNT-MCG ORAL CHEW 1 chew tab bid 201 11/03/03 CALCIUM-VITAMIN D-VITAMIN K 38099578561 Active Silvia Arnold APRN Active EQ COMPLETE MULTIVIT ADULT 50+ ORAL TABS 1 tab po bid MULTIPLE VITAMINS-MINERALS 97111145744 Active Silvia Arnold APRN Act jairo HYDROCODONE-ACETAMINOPHEN 7.5-325 MG TABS TAKE ONE TAB EVERY 6 HOURS BY MOUTH NEEDED FOR PAIN HYDROCODONE-ACETAMINOPHEN 42770964899 Acti raheel Mcmullen Active LORTAB 7.5-500 MG TABS take one po Q6 hours HYDROCODONE-ACETAMINOPHEN No Longer Active Nirmal Robbins RN Active [facility]EL[facility] 5-10 MG CR-TABS Take one by mouth daily at bedtime MELATONIN-PYRIDOXINE 21723710533 No Longer Active Bertrand Patel DO Active VITAMIN E 200 UNIT CAPS 1 cap po qd VITAMIN E 316 88549792 No Longer Active Bertrand Patel DO Active B-12 1000 MCG CAPS 1 tab daily CYANOCOBALAMIN 31 085381929 No Longer Active Bertrand Patel DO Active METFORMIN HCL 500 MG TABS 1 bid METFORMIN HCL 59098755326 No Longer Active Bertrand Patel DO Active FUROSEMIDE 20 MG TABS 1 pill by mouth daily if needed for edema FUROSEMIDE 95242568801 No Longer Active Bertrand Patel DO Act jairo PRAVASTATIN SODIUM 20 MG TABS 1 tablet by mouth daily at bedtime PRAVASTATIN SODIUM 43897695038 No Longer Active Bertrand Patel DO Active AUGMENTIN 875-125 MG TABS 1 pill by mouth twice daily AMOXICILLIN-POT CLAVULANATE 72117781737 No Longer Active Yoli Mercado MD PhD Active LEVAQUIN 500 MG TABS 1 pill by mouth daily LEVO FLOXACIN 82893067232 No Longer Active Yoli Mercado MD PhD Active AMLODIPINE BESYLATE 5 MG TABS 1 tablet by mouth daily for bl ood pressure AMLODIPINE BESYLATE 51847702757 Active Darlyn Mckinnonmerman Active MICARDIS 80 MG TABS 1 tablet daily for blood pressure TELMISARTAN 63491494607 Active Darlyn Nicolás Active MICARDIS HCT 80-12.5 MG TABS 1 qd TELMISARTA N-HCTZ 52416279267 No Longer Active Bertrand Patel DO Active CINNAMON ALPHA LIPOIC AC CMPLX CAPS by mouth twice a d ay in AM by mouth twice a day in PM ALPHA LIPOIC [id number] CAPS 370692 92138 No Longer Active Bertrand Patel DO Active AZITHROMYCIN 500 MG SOLR 1 po q day AZITHROMYCI N 03592021646 No Longer Active Bertrand Patel DO Active CYMBALTA 30 MG CPEP 1 cap by mouth daily DULOXE CATHI HCL 70497495965 No Longer Active Bertrand Patel DO Active CYMBALTA 60 MG CPEP 1 cap by mouth daily DULOXE CATHI HCL 51291165459 Active Keysha Jones MA Active WELLBUTRIN 75 MG TABS 2 times daily BUPROPION H CL 45090061945 No Longer Active Bertrand Patel DO Active PROAIR HFA 108 (90 BASE) MCG/ACT AERS take one to two puffs po Q4-6 hour prn cough and shortness of breath ALBUTEROL SULFATE 9454152847 2 Active Silvia Arnold APRN Active AZITHROMYCIN 250 MG TABS take 2 po today then take 1 po days 2-5 AZITHROMYCIN 43724687566 No Longer Active Adolfo OSORIO Active PERMETHRIN 5 % CREA apply neck to toes tonight a nd then rinse off in morning. repeat at 7 days PERMETHRIN 13652332179 No Longer Active Adolfo OSORIO Active AMOXICILLIN 500 MG CAPS 2 po BID x 10 days AMOX ICILLIN 97456754541 No Longer Active Yoli Mercado MD PhD Active ALPRAZOLAM 0.5 MG TAB 1 tab by mouth tid ALPRAZOL AM 38964546217 Active Nitza Mullins RPT,RMA Active INSUPEN ULTRAFIN 31G X 6 MM MISC USE DIRECTED 03/04 INSULIN PEN NEEDLE 97006594176 No Longer Active Bertrand Patel DO Active TRANSDERM-SCOP 1.5 MG PT72 1 patch applied behind ear q 3 day 20 04/13/28 SCOPOLAMINE BASE 45702750372 No Longer Active Bertrand Patel DO Active MACRODANTIN 100 MG CAPS one p.o. b.i.d. x2 weeks 03/04 NITROFURANTOIN MACROCRYSTAL 30468074048 No Longer Active Bertrand Patel DO Active MACRODANTIN 100 MG CAPS one p.o. b.i.d. x2 weeks 03/04 MACRODANTIN 100 MG CAPS 0174365 NITROFURANTOIN MACROCRYSTAL Inactive TRANSDERM-SCOP 1.5 MG PT72 [...] at 7 days PERMETHRIN 5 % CREA 102584 PERMETHRIN Inactive WELLBUTRIN 75 MG TABS 2 times daily WELLBUTRIN 75 MG TABS BUPROPION HCL Inactive CYMBALTA 30 MG CPEP 1 cap by mouth daily CYMBALTA 30 MG CPEP 333100 DULOXETINE HCL Inactive AZITHROMYCIN 500 MG SOLR 1 po q day ALTA THROMYCIN 500 MG SOLR 13038049324 AZITHROMYCIN Inactive CINNAMON ALPHA LIPOIC AC CMPLX CAPS by mouth twice a d ay in AM by mouth twice a day in PM CINNAMON ALPHA LIPOIC AC CMPLX CAPS ALPHA LIPOIC [id number] CAPS Inactive MICARDIS HCT 80-12.5 MG TABS 1 qd MICARDI S HCT 80-12.5 MG TABS 728753 TELMISARTAN-HCTZ Inactive PRAVASTATIN SODIUM 20 MG TABS 1 tablet by mouth daily at bedtime PRAVASTATIN SODIUM 20 MG TABS 098889 PRAVASTATIN SODIUM Inactive FUROSEMIDE 20 MG TABS 1 pill by mouth daily if needed for edema FUROSEMIDE 20 MG TABS 780627 FUROSEMIDE Inactive METFORMIN HCL 500 MG TABS 1 bid METFORMIN HCL 500 MG TABS 433885 METFORMIN HCL Inactive B-12 1000 MCG CAPS 1 tab daily B-12 1000 MCG CAP S CYANOCOBALAMIN Inactive VITAMIN E 200 UNIT CAPS 1 cap po qd VITAMIN E 2 00 UNIT CAPS 2328931 VITAMIN E Inactive [facility] MELATONIN 5-10 MG CR-TABS Take one by mouth daily at bedtime [facility] MELATONIN 5-10 MG CR-TABS MELATONIN-PYRIDOXI NE Inactive LORTAB 7.5-500 MG TABS take one po Q6 hours LORTAB 7.5-500 MG TABS HYDROCODONE-ACETAMINOPHEN Inactive AZITHROMYCIN 250 MG ORAL TABS Take 2 tabs po today then 1 ta b po daily AZITHROMYCIN 250 MG ORAL TABS 9490560 AZITHROMYCI N Inactive SYMBICORT 160-4.5 MCG/ACT AERO 2 puffs BID SYMBICORT 160- 4.5 MCG/ACT AERO BUDESONIDE-FORMOTEROL FUMARATE Inactive ALBUTEROL SULFATE 0.083 % NEBU SOLN one vial per nebul izer every 4-6 hours as needed ALBUTEROL SULFATE 0.083 % NEBU SOLN 84451 8 ALBUTEROL SULFATE Inactive NEBULIZER MISC use as directed NEBULIZER MISC NEBULIZERS Inactive TESSALON PERLES 100 MG CAP 1 tablet by mouth 3 times daily 07/07 TESSALON PERLES 100 MG CAP 988102 BENZONATATE Inact jairo CYCLOBENZAPRINE HCL 10 MG TABS Take 1 tab TID PRN for muscle pain CYCLOBENZAPRINE HCL 10 MG TABS 287416 CYCLOBENZAPRINE HCL Inactive AUGMENTIN 875-125 MG TAB 1 po BID x 10 days AUGMENTIN 875- 125 MG TAB 493113 AMOXICILLIN-POT CLAVULANATE Inactive BACTROBAN 2 % CREAM Apply to affected area BID for up to 10 days BACTROBAN 2 % CREAM 981696 MUPIROCIN CALCIUM Inactive AMOXICILLIN 500 MG CAPS 2 po BID x 10 days AMOXICILLIN 500 MG CAPS 483761 AMOXICILLIN Inactive AZITHROMYCIN 250 MG TABS take 2 po today then take 1 po days 2-5 AZITHROMYCIN 250 MG TABS 6413981 AZITHROMYCIN Inactiv e LEVAQUIN 500 MG TABS 1 pill by mouth daily LEVAQUIN 500 MG TABS 558401 LEVOFLOXACIN Inactive AUGMENTIN 875-125 MG TABS 1 pill by mouth twice daily AUGMENTIN 875-125 MG TABS 142936 AMOXICILLIN-POT CLAVULANATE Inacti ve AUGMENTIN 875-125 MG TAB 1 po BID x 10 days AUGMENTIN 875- 125 MG TAB 276596 AMOXICILLIN-POT CLAVULANATE Inactive PREDNISONE 20 MG TAB take 3 tabs daily for 3 days , 2 tabs daily for 3 days, 1 tab daily for 3 days, 1/2 tab daily for 3 days PREDNISONE 20 MG TAB 158979 PREDNISONE Inactive CIPRO 500 MG TAB 1 tablet by mouth twice daily CIPRO 500 MG TAB 501965 CIPROFLOXACIN HCL Inactive Vital Signs Date Name [...] Name Value Unit Range Description Lab Report: HGBA1C, Lipid Panel, MICROAL B/CREAT W/RATIO, Thyroid Stimula ... - Chemistry albumin/creatinine ratio, urine < 30 mg/g mg/g{creat} 0-2 9 TSH 1.16 m[iU]/mL 0.36-3.74 sodium, serum 142 mmol/L 748-743 0924/07/22 carbon dioxide, venous blood 33.1 mmol/L 21.0-32 [...] 5.8 % 4.3-6.0 cholesterol, serum 200 mg/dL 533-804 0475/07/22 triglyceride, serum, fasting 56 mg/dL 30-200 HDL cholesterol, serum 80 mg/dL 32-96 LDL cholesterol, serum 109 mg/dL 0-130 Lab Report: HGBA1C, Lipid Panel, MICROAL B/CREAT [...] 0-19 Encounters Code Encounter Date Provider Facility CPT-52673 Level 3 Est. Patient 11:27:00 HORSE DOCTOR Ike Deluna MD [facility] CPT-56974 Level 3 Est. Patient 08:50:57 HORSE DOCTOR Dangelo [employer] SAL[employer] PROFESSIONAL [facility] CPT-29576 Level 3 Est. Patient 10:04:[address] [facility] CPT-14262 Level 4 Est. Patient 16:02:10 HORSE DOCTOR Dangelo [facility] CPT-99001 Level 3 Est. Patient 13:04:54 HORSE DOCTOR Dangelo [facility] CPT-27684 Level 3 Est. Patient 12:56:37 CDT Bertrand marquez [facility] CPT-78672 Level 3 Est. Patient 19:12:03 CDT Yoli tolbert MD PhD [facility] CPT-88665 Level 3 Est. Patient 14:36:01 CDT Yoli tolbert MD [facility] CPT-08910 Level 2 Est. Patient 08:00:22 CDT Jcarlos dc MD [facility]-32725 Level 3 Est. Patient 19:06:55 CDT Bertrand marquez [facility] CPT-34190 Level 3 Est. Patient 10:08:23 H[address] [facility] CPT-92435 Level 3 Est. Patient 16:37:54 HORSE DOCTOR Bertrand marquez [facility] CPT-05408 Level 3 Est. Patient 11:31:59 HORSE DOCTOR Bertrand marquez [facility] CPT-40950 Level 3 Est. Patient 10:20:08 CDT Demie Ahl jacklyn [facility] CPT-60490 Level 3 Est. Patient 13:45:20 CDT Sanket Garciakelvin buckley [facility] CPT-74188 Level 3 Est. Patient 12:51:06 CDT Adolfo Monroyridge villasenor [facility] CPT-19523 Level 3 Est. Patient 11:22:51 HORSE DOCTOR Yoli tolbert MD PhD [facility] CPT-61669 Level 3 Est. Patient 13:33:19 CDT Bertrand marquez DO [facility] Procedures Code Procedure Name Date Entry Date Standard Desc ription CPT-17522 Wound Culture - LAB USE ONLY 15:45:25 CDT 2 CPT-74462 Venipuncture Draw Fee 10:23:01 CDT CPT-J0696 Rocephin 1000 mg (Ceftriaxone) 16:20:30 HORSE DOCTOR CPT-08020 Abx/Therapy Injection 16:20:29 HORSE DOCTOR CPT-J0696 Rocephin 1gm Inj Solr 15:51:59 HORSE DOCTOR CPT-51593 Chest 2V Frontal and Lat 15:20:28 HORSE DOCTOR 07/22 CPT-58426 Breathing Tx 14:51:55 HORSE DOCTOR CPT-64352 Breathing Tx 09:57:16 HORSE DOCTOR CPT-79094 Knee comp 4/> V 11:58:06 HORSE DOCTOR
--- OUTSIDE RECORDS SUMMARY | 2019-11-13 10:04 | XMS REPORT | Clinical Summary ---
Author Author Admin, Enrique Adamson Organization [employer] Address Unknown Phone Unavailable Allergies, Adverse Reactions, [...] day as needed for c ough BENZONATATE 48503259153 Active Ike Deluna MD Acti ve ZITHROMAX Z-MARTIN 250 MG TABS 2 today and then 1 daily for 4 days 201 12/01/06 AZITHROMYCIN 54243705979 Active Ike Deluna MD Active ADDERALL 10 MG ORAL TABS 1 tab twice daily AMPHETAMINE-DEXTROAMPHETAMINE 10132492323 Active Ike Deluna MD Active BACTROBAN 2 % CREAM Apply to affected area BID for up to 10 days MUPIROCIN CALCIUM 56782998939 No Longer Active Ike Deluna MD Active CIPRO 500 MG TAB 1 tablet by mouth twice daily CIPROFLOXACIN HCL 60884965340 No Longer Active Adriana Bender LPN Active AUGMENTIN 875-125 MG TAB 1 po BID x 10 days AMOXICILLIN- POT CLAVULANATE 26004834408 No Longer Active Adriana Bender LPN Active MODAFINIL 200 MG ORAL TABS Take 1/2 tab po in the am and 1/2 tab po at noon MODAFINIL 76815402249 Active Darlyn vega CYCLOBENZAPRINE HCL 10 MG TABS Take 1 tab TID PRN for muscle pain CYCLOBENZAPRINE HCL 35528506450 No Longer Active Bertrand Patel DO Ac tive TESSALON PERLES 100 MG CAP 1 tablet by mouth 3 times daily 07/07 BENZONATATE 22597091938 No Longer Active Bertrand Patel DO Ac tive NEBULIZER MISC use as directed NEBULIZERS 715637 98205 No Longer Active Bertrand Patel DO Active ALBUTEROL SULFATE 0.083 % NEBU SOLN one vial per nebul izer every 4-6 hours as needed ALBUTEROL SULFATE 13950236174 No Longer Active Bertrand Patel DO Active SYMBICORT 160-4.5 MCG/ACT AERO 2 puffs BID BUDESONIDE- FORMOTEROL FUMARATE 53817064622 No Longer Active Bertrand Patel DO Ac tive PREDNISONE 20 MG TAB take 3 tabs daily for 3 days , 2 tabs daily for 3 days, 1 tab daily for 3 days, 1/2 tab daily for 3 days P REDNISONE 86444832538 No Longer Active Silvia Arnold APRN Active AZITHROMYCIN 250 MG ORAL TABS Take 2 tabs po today then 1 ta b po daily AZITHROMYCIN 31677492310 No Longer Active Silvia Jorge gavin JENN Active AUGMENTIN 875-125 MG TAB 1 po BID x 10 days AMOXICILLIN- POT CLAVULANATE 44808125918 No Longer Active Adriana Bender LPN Active CHEWABLE CALCIUM 500-200-40 MG-UNT-MCG ORAL CHEW 1 chew tab bid 201 11/03/03 CALCIUM-VITAMIN D-VITAMIN K 36115600489 Active Silvia Arnold APRN Active EQ COMPLETE MULTIVIT ADULT 50+ ORAL TABS 1 tab po bid MULTIPLE VITAMINS-MINERALS 19177389139 Active Silvia Arnold APRN Act jairo HYDROCODONE-ACETAMINOPHEN 7.5-325 MG TABS TAKE ONE TAB EVERY 6 HOURS BY MOUTH NEEDED FOR PAIN HYDROCODONE-ACETAMINOPHEN 42147793465 Acti raheel Mcmullen Active LORTAB 7.5-500 MG TABS take one po Q6 hours HYDROCODONE-ACETAMINOPHEN No Longer Active Nirmal Robbins RN Active [facility] MELATONIN 5-10 MG CR-TABS Take one by mouth daily at bedtime MELATONIN-PYRIDOXINE 64666776004 No Longer Active Bertrand Patel DO Active VITAMIN E 200 UNIT CAPS 1 cap po qd VITAMIN E 316 85244506 No Longer Active Bertrand Patel DO Active B-12 1000 MCG CAPS 1 tab daily CYANOCOBALAMIN 31 894202792 No Longer Active Bertrand Patel DO Active METFORMIN HCL 500 MG TABS 1 bid METFORMIN HCL 79599655781 No Longer Active Bertrand Patel DO Active FUROSEMIDE 20 MG TABS 1 pill by mouth daily if needed for edema FUROSEMIDE 50886121467 No Longer Active Bertrand W Jorge DO Act jairo PRAVASTATIN SODIUM 20 MG TABS 1 tablet by mouth daily at bedtime PRAVASTATIN SODIUM 80347020846 No Longer Active Bertrand Patel DO Active AUGMENTIN 875-125 MG TABS 1 pill by mouth twice daily AMOXICILLIN-POT CLAVULANATE 38063628432 No Longer Active Yoli Mercado MD PhD Active LEVAQUIN 500 MG TABS 1 pill by mouth daily LEVO FLOXACIN 11507844420 No Longer Active Yoli Mercado MD PhD Active AMLODIPINE BESYLATE 5 MG TABS 1 tablet by mouth daily for bl ood pressure AMLODIPINE BESYLATE 76568299190 Active Darlyn Monzon Active MICARDIS 80 MG TABS 1 tablet daily for blood pressure TELMISARTAN 52937848430 Active Darlyn Monzon Active MICARDIS HCT 80-12.5 MG TABS 1 qd TELMISARTA N-HCTZ 52950675716 No Longer Active Bertrand Patel DO Active CINNAMON ALPHA LIPOIC AC CMPLX CAPS by mouth twice a d ay in AM by mouth twice a day in PM ALPHA LIPOIC [id number] CAPS 906642 45217 No Longer Active Bertrand Patel DO Active AZITHROMYCIN 500 MG SOLR 1 po q day AZITHROMYCI N 22141096565 No Longer Active Bertrand Patel DO Active CYMBALTA 30 MG CPEP 1 cap by mouth daily DULOXE CATHI HCL 99531608799 No Longer Active Bertrand Patel DO Active CYMBALTA 60 MG CPEP 1 cap by mouth daily DULOXE CATHI HCL 77760736076 Active Keysha Jones MA Active WELLBUTRIN 75 MG TABS 2 times daily BUPROPION H CL 94031619030 No Longer Active Bertrand Patel DO Active PROAIR HFA 108 (90 BASE) MCG/ACT AERS take one to two puffs po Q4-6 hour prn cough and shortness of breath ALBUTEROL SULFATE 6490781420 2 Active Silviakelvin Arnold INFECTION CONTROL SPECIALIST Active AZITHROMYCIN 250 MG TABS take 2 po today then take 1 po days 2-5 AZITHROMYCIN 19192348768 No Longer Active Adolfo OSOROI Active PERMETHRIN 5 % CREA apply neck to toes tonight a nd then rinse off in morning. repeat at 7 days PERMETHRIN 25240789848 No Longer Active Adolfo OSORIO Active AMOXICILLIN 500 MG CAPS 2 po BID x 10 days AMOX ICILLIN 37514060051 No Longer Active Yoli Mercado MD PhD Active ALPRAZOLAM 0.5 MG TAB 1 tab by mouth tid ALPRAZOL AM 98505535532 Active Nitza Mullins RPT,RMA Active INSUPEN ULTRAFIN 31G X 6 MM MISC USE DIRECTED 03/04 INSULIN PEN NEEDLE 52299018294 No Longer Active Bertrand Patel DO Active TRANSDERM-SCOP 1.5 MG PT72 1 patch applied behind ear q 3 day 20 04/13/28 SCOPOLAMINE BASE 15392348612 No Longer Active Bertrand Patel DO Active MACRODANTIN 100 MG CAPS one p.o. b.i.d. x2 weeks 03/04 NITROFURANTOIN MACROCRYSTAL 73955883743 No Longer Active Bertrand Patel DO Active MACRODANTIN 100 MG CAPS one p.o. b.i.d. x2 weeks 03/04 MACRODANTIN 100 MG CAPS 0105821 NITROFURANTOIN MACROCRYSTAL Inactive TRANSDERM-SCOP 1.5 MG PT72 [...] at 7 days PERMETHRIN 5 % CREA 318396 PERMETHRIN Inactive WELLBUTRIN 75 MG TABS 2 times daily WELLBUTRIN 75 MG TABS BUPROPION HCL Inactive CYMBALTA 30 MG CPEP 1 cap by mouth daily CYMBALTA 30 MG CPEP 036603 DULOXETINE HCL Inactive AZITHROMYCIN 500 MG SOLR 1 po q day ALTA THROMYCIN 500 MG SOLR 77244301717 AZITHROMYCIN Inactive CINNAMON ALPHA LIPOIC AC CMPLX CAPS by mouth twice a d ay in AM by mouth twice a day in PM CINNAMON ALPHA LIPOIC AC CMPLX CAPS ALPHA LIPOIC [id number] CAPS Inactive MICARDIS HCT 80-12.5 MG TABS 1 qd MICARDI S HCT 80-12.5 MG TABS 685211 TELMISARTAN-HCTZ Inactive PRAVASTATIN SODIUM 20 MG TABS 1 tablet by mouth daily at bedtime PRAVASTATIN SODIUM 20 MG TABS 983519 PRAVASTATIN SODIUM Inactive FUROSEMIDE 20 MG TABS 1 pill by mouth daily if needed for edema FUROSEMIDE 20 MG TABS 325882 FUROSEMIDE Inactive METFORMIN HCL 500 MG TABS 1 bid METFORMIN HCL 500 MG TABS 526643 METFORMIN HCL Inactive B-12 1000 MCG CAPS 1 tab daily B-12 1000 MCG CAP S CYANOCOBALAMIN Inactive VITAMIN E 200 UNIT CAPS 1 cap po qd VITAMIN E 2 00 UNIT CAPS 6658977 VITAMIN E Inactive [facility] MELATONIN 5-10 MG CR-TABS Take one by mouth daily at bedtime [facility] MELATONIN 5-10 MG CR-TABS MELATONIN-PYRIDOXI NE Inactive LORTAB 7.5-500 MG TABS take one po Q6 hours LORTAB 7.5-500 MG TABS HYDROCODONE-ACETAMINOPHEN Inactive AZITHROMYCIN 250 MG ORAL TABS Take 2 tabs po today then 1 ta b po daily AZITHROMYCIN 250 MG ORAL TABS 7843433 AZITHROMYCI N Inactive SYMBICORT 160-4.5 MCG/ACT AERO 2 puffs BID SYMBICORT 160- 4.5 MCG/ACT AERO BUDESONIDE-FORMOTEROL FUMARATE Inactive ALBUTEROL SULFATE 0.083 % NEBU SOLN one vial per nebul izer every 4-6 hours as needed ALBUTEROL SULFATE 0.083 % NEBU SOLN 51766 8 ALBUTEROL SULFATE Inactive NEBULIZER MISC use as directed NEBULIZER MISC NEBULIZERS Inactive TESSALON PERLES 100 MG CAP 1 tablet by mouth 3 times daily 07/07 TESSALON PERLES 100 MG CAP 383785 BENZONATATE Inact jairo CYCLOBENZAPRINE HCL 10 MG TABS Take 1 tab TID PRN for muscle pain CYCLOBENZAPRINE HCL 10 MG TABS 613106 CYCLOBENZAPRINE HCL Inactive AUGMENTIN 875-125 MG TAB 1 po BID x 10 days AUGMENTIN 875- 125 MG TAB 757780 AMOXICILLIN-POT CLAVULANATE Inactive BACTROBAN 2 % CREAM Apply to affected area BID for up to 10 days BACTROBAN 2 % CREAM 415163 MUPIROCIN CALCIUM Inactive AMOXICILLIN 500 MG CAPS 2 po BID x 10 days AMOXICILLIN 500 MG CAPS 936773 AMOXICILLIN Inactive AZITHROMYCIN 250 MG TABS take 2 po today then take 1 po days 2-5 AZITHROMYCIN 250 MG TABS 1336320 AZITHROMYCIN Inactiv e LEVAQUIN 500 MG TABS 1 pill by mouth daily LEVAQUIN 500 MG TABS 715488 LEVOFLOXACIN Inactive AUGMENTIN 875-125 MG TABS 1 pill by mouth twice daily AUGMENTIN 875-125 MG TABS 981502 AMOXICILLIN-POT CLAVULANATE Inacti ve AUGMENTIN 875-125 MG TAB 1 po BID x 10 days AUGMENTIN 875- 125 MG TAB 840579 AMOXICILLIN-POT CLAVULANATE Inactive PREDNISONE 20 MG TAB take 3 tabs daily for 3 days , 2 tabs daily for 3 days, 1 tab daily for 3 days, 1/2 tab daily for 3 days PREDNISONE 20 MG TAB 507840 PREDNISONE Inactive CIPRO 500 MG TAB 1 tablet by mouth twice daily CIPRO 500 MG TAB 272693 CIPROFLOXACIN HCL Inactive Vital Signs Date Name [...] 1.16 m[iU]/mL 0.36-3.74 sodium, serum 142 mmol/L 407-213 8534/07/22 carbon dioxide, venous blood 33.1 mmol/L 21.0-32 [...] 5.8 % 4.3-6.0 cholesterol, serum 200 mg/dL 465-583 8652/07/22 triglyceride, serum, fasting 56 mg/dL 30-200 HDL [...] 0-19 Encounters Code Encounter Date Provider Facility CPT-64559 Level 4 Est. Patient 12:31:54 CDT Bertrand marquez [facility] CPT-55673 Level 3 Est. Patient 11:27:00 POLICEMAN Ike Deluna MD [facility] CPT-83464 Level 3 Est. Patient 08:50:57 POLICEMAN Dangelo [facility] CPT-80112 Level 3 Est. Patient 10:04:13 CDT Bertrand marquez [facility] CPT-13539 Level 4 Est. Patient 16:02:10 POLICEMAN Dangelo [facility] CPT-32422 Level 3 Est. Patient 13:04:54 POLICEMAN Dangelo INFECTION CONTROL SPECIALIST [facility] CPT-06258 Level 3 Est. Patient 12:56:37 CDT Bertrand marquez [facility] CPT-02527 Level 3 Est. Patient 19:12:03 CDT Yoli tolbert MD PhD [facility] CPT-53620 Level 3 Est. Patient 14:36:01 CDT Yoli tolbert MD PhD [facility] CPT-18600 Level 2 Est. Patient 08:00:22 CDT Jcarlos dc MD [facility] CPT-07903 Level 3 Est. Patient 19:06:55 CDT Bertrand marquez [facility] CPT-01174 Level 3 Est. Patient 10:08:23 POLICEMAN Bertrand marquez [facility] CPT-63894 Level 3 Est. Patient 16:37:54 POLICEMAN Bertrand marquez [facility] CPT-77249 Level 3 Est. Patient 11:31:59 POLICEMAN Bertrand marquez [facility] CPT-69526 Level 3 Est. Patient 10:20:08 CDT Adolfo villasenor [facility] CPT-94659 Level 3 Est. Patient 13:45:20 CDT Sanket buckley [facility] CPT-15442 Level 3 Est. Patient 12:51:06 CDT Adolfo villasenor [facility] CPT-28508 Level 3 Est. Patient 11:22:51 POLICEMAN Yoli tolbert MD PhD [facility] CPT-90424 Level 3 Est. Patient 13:33:19 CDT Bertrand marquez [facility] Procedures Code Procedure Name Date Entry Date Standard Desc ription CPT-95377 Wound Culture - LAB USE ONLY 15:45:25 CDT 2 CPT-79379 Venipuncture Draw Fee 10:23:01 CDT CPT-J0696 Rocephin 1000 mg (Ceftriaxone) 16:20:30 POLICEMAN CPT-36065 Abx/Therapy Injection 16:20:29 POLICEMAN CPT-J0696 Rocephin 1gm Inj Solr 15:51:59 POLICEMAN CPT-06037 Chest 2V Frontal and Lat 15:20:28 POLICEMAN 07/22 CPT-22874 Breathing Tx 14:51:55 POLICEMAN CPT-38619 Breathing Tx 09:57:16 POLICEMAN CPT-47521 Knee comp 4/> V 11:58:06 POLICEMAN
--- OUTSIDE RECORDS SUMMARY | 2019-11-13 10:04 | XMS REPORT | Clinical Summary ---
Author Author Admin, Enrique Adamson Organization [employer] Address Unknown Phone Unavailable Allergies, Adverse Reactions, [...] Amenorrhea, secondary 626.0 Resolved Kri sti Harpreet Scribilya Absence of menstruation Depression 311 Active Bertrand Patel DO Depressive disorder, not elsewhere classified HEALTH SCREENING ICD-V70.0 Inactive Yoli sbaillon MD PhD SCABIES ICD-133.0 Inactive Yoli Mercado MD PhD 201 07/14/20 FH DIABETES ICD-V18.0 Inactive Yoli Mercado MD PhD 20 14/02/29 SINUSITIS, FRONTAL, ACUTE ICD-461.1 Inactive Yoli Mercado MD PhD COUGH ICD-786.2 Inactive Yoli Mercado MD PhD 201 09/09/28 EDEMA LEG ICD-782.3 Inactive Adele Feldman SHELL MOLDER 201 01/01/02 SHORTNESS OF BREATH ICD-786.05 Inactive Yoli Mercado MD PhD RIB PAIN, RIGHT SIDED ICD-786.50 Inactive Yoli Mercado MD PhD KNEE PAIN, RIGHT ICD-719.46 Inactive Adele Esqueda ghn SHELL MOLDER Knee pain, left ICD-719.46 Inactive Adele Holden hn SHELL MOLDER Pharyngitis-Acute ICD-462 Inactive Bertrand Redmond DO Polyuria ICD-788.42 Inactive Yoli Mercado MD P hD Cellulitis, leg, right ICD-682.6 Inactive Yuki Deluna MD Foreign body, ear ICD-931 Inactive Yloi salazar MD PhD Fatigue ICD-780.79 Inactive Ike Deluna MD 201 12/01/06 Headache ICD-784.0 Inactive Adele Feldman SHELL MOLDER 2017 Cough ICD-786.2 Inactive Adele Feldman SHELL MOLDER 06/04 SINUSITIS, ACUTE ICD-461.9 Inactive Ike lange MD Fatigue ICD-780.79 Inactive Adele Feldman SHELL MOLDER 2017 Bronchitis acute with bronchospasm ICD-466.0 I nactive Adele Feldman SHELL MOLDER Animal bite ICD-919.8 Inactive Adele Feldman LP N Mycoplasma infection ICD-041.81 Inactive Anit a Feldman SHELL MOLDER Amenorrhea, secondary ICD-626.0 Inactive Ani quinton Downsn SHELL MOLDER Medication List Medication Instructions Start Date Stop Date Generic Name NDC Status Provider Patient Instruction ADDERALL 10 MG ORAL TABLET 1 tab twice daily 2 AMPHETAMINE-DEXTROAMPHETAMINE 40015671560 No Longer Active Nitza Phi llips Scribe Active ZITHROMAX Z-MARTIN 250 MG ORAL TABLET 2 today and then 1 daily for 4 days AZITHROMYCIN 74376110750 No Longer Active Nitza Osman lips Scribe Active BENZONATATE 200 MG ORAL CAPSULE 1 three times a day as neede d for cough BENZONATATE 13798427759 No Longer Active Nitza Osman lips Scribe Active VITAMIN D3 25552 UNIT ORAL CAPSULE 1 pill Week x 4 mo nths for vitamin D deficiency/osteoporosis CHOLECALCIFEROL 18526864750 N o Longer Active Layla Mcmullen Active BACTROBAN 2 % EXTERNAL CREAM Apply to affected area BID for up to 10 days MUPIROCIN CALCIUM 63767109402 No Longer Active Ike Deluna MD Active CIPRO 500 MG ORAL TABLET 1 tablet by mouth twice daily CIPROFLOXACIN HCL 27754764240 No Longer Active Adriana Bender LPN Active AUGMENTIN 875-125 MG ORAL TABLET 1 po BID x 10 days 18/04/06 AMOXICILLIN-POT CLAVULANATE 45526177857 No Longer Active Adriana Bender LPN Active MODAFINIL 200 MG ORAL TABLET Take 1/2 tab po in the am and 1 /2 tab po at noon MODAFINIL 30960013693 Active Bertrand Patel DO Ac tive CYCLOBENZAPRINE HCL 10 MG ORAL TABLET Take 1 tab TID PRN for mus triston pain CYCLOBENZAPRINE HCL 16597760164 No Longer Active Bertrand Patel DO Active TESSALON PERLES 100 MG ORAL CAPSULE 1 tablet by mouth 3 times da juan pablo BENZONATATE 98936330965 No Longer Active Bertrand Patel DO Ac tive NEBULIZER use as directed NEBULIZERS 81205817512 No Longer Active Bertrand Patel DO Active ALBUTEROL SULFATE (2.5 MG/3ML) 0.083% INHALATION NEBUL IZATION SOLUTION one vial per nebulizer every 4-6 hours as needed ALBUTERO L SULFATE 19570246216 No Longer Active Bertrand Patel DO Active SYMBICORT 160-4.5 MCG/ACT INHALATION AEROSOL 2 puffs BID 9 BUDESONIDE-FORMOTEROL FUMARATE 21565085567 No Longer Active Bertrand Patel DO Active PREDNISONE 20 MG ORAL TABLET take 3 tabs daily for 3 d ays, 2 tabs daily for 3 days, 1 tab daily for 3 days, 1/2 tab daily for 3 days 08/02 PREDNISONE 49101232794 No Longer Active Silvia Arnold WINCHER Acti ve AZITHROMYCIN 250 MG ORAL TABLET Take 2 tabs po today then 1 tab po daily AZITHROMYCIN 63802899128 No Longer Active Silvia gavin WINCHER Active AUGMENTIN 875-125 MG ORAL TABLET 1 po BID x 10 days 20 19/07/13 AMOXICILLIN-POT CLAVULANATE 04069206405 No Longer Active Adriana Bender LPN Active CHEWABLE CALCIUM 500-200-40 MG-UNT-MCG ORAL TABLET CHEWABLE 1 chew tab bid CALCIUM-VITAMIN D-VITAMIN K 13705616355 Active Silvia garlandgypsy WINCHER Active EQ COMPLETE MULTIVIT ADULT 50+ ORAL TABLET 1 tab po bid MULTIPLE VITAMINS-MINERALS 35085980246 Active Silvia Arnold WINCHER Act jairo HYDROCODONE-ACETAMINOPHEN 7.5-325 MG ORAL TABLET TAKE ONE TAB EVERY 6 HOURS BY MOUTH NEEDED FOR PAIN HYDROCODONE-ACETAMINOPHEN 004 95604907 Active Adele Feldman SHELL MOLDER Active LORTAB 7.5-500 MG ORAL TABLET take one po Q6 hours 201 09/12/01 HYDROCODONE-ACETAMINOPHEN 70281690521 No Longer Active Nirmal Robbins RN Active [facility] MELATONIN 5-10 MG ORAL TABLET EXTENDED RELEASE Jair e one by mouth daily at bedtime MELATONIN-PYRIDOXINE 22848368332 No Longer Acti ve Bertrand Patel DO Active VITAMIN E 200 UNIT ORAL CAPSULE 1 cap po qd VITAM IN E 62503947093 No Longer Active Bertrand Patel DO Active B-12 1000 MCG ORAL CAPSULE 1 tab daily CYANOCOB ALAMIN 50328235516 No Longer Active Bertrand Patel DO Active METFORMIN HCL 500 MG ORAL TABLET 1 bid METFOR MIN HCL 95018673711 No Longer Active Bertrand Patel DO Active FUROSEMIDE 20 MG ORAL TABLET 1 pill by mouth daily if needed for edema FUROSEMIDE 18779790163 No Longer Active Bertrand Patel DO Active PRAVASTATIN SODIUM 20 MG ORAL TABLET 1 tablet by mouth daily at bedtime PRAVASTATIN SODIUM 79409201251 No Longer Active Bertrand Patel DO Active AUGMENTIN 875-125 MG ORAL TABLET 1 pill by mouth twice daily 201 09/10/00 AMOXICILLIN-POT CLAVULANATE 22462105647 No Longer Active Yoli Mercado MD PhD Active LEVAQUIN 500 MG ORAL TABLET 1 pill by mouth daily 2013 LEVOFLOXACIN 72614804477 No Longer Active Yoli Mercado MD PhD Acti ve AMLODIPINE BESYLATE 5 MG ORAL TABLET 1 tablet by mouth daily for blood pressure AMLODIPINE BESYLATE 65783511721 Active Bertrand Patel DO Active MICARDIS 80 MG ORAL TABLET 1 tablet daily for blood pressure 07/30 TELMISARTAN 03718053126 Active Bertrand Patel DO Active MICARDIS HCT 80-12.5 MG ORAL TABLET 1 qd TELMISARTAN-HCTZ 18536109750 No Longer Active Bertrand Patel DO Active CINNAMON ALPHA LIPOIC AC CMPLX CAPSULE by mouth twice a day in AM by mouth twice a day in PM ALPHA LIPOIC CLHB-JO-BIDFBCON CA PS 10591503321 No Longer Active Bertrand Patel DO Active AZITHROMYCIN 500 MG INTRAVENOUS SOLUTION RECONSTITUTED 1 po q da y AZITHROMYCIN 19323205372 No Longer Active Bertrand Patel DO A ctive CYMBALTA 30 MG ORAL CAPSULE DELAYED RELEASE PARTICLES 1 cap by mouth daily DULOXETINE HCL 57433187807 No Longer Active Bertrand marquez DO Active CYMBALTA 60 MG ORAL CAPSULE DELAYED RELEASE PARTICLES 1 cap by mouth daily DULOXETINE HCL 43566423639 Active Bertrand Patel DO Active WELLBUTRIN 75 MG ORAL TABLET 2 times daily BUPR OPION HCL 77016140749 No Longer Active Bertrand Patel DO Active PROAIR HFA 108 (90 Base) MCG/ACT INHALATION AEROSOL SO LUTION take one to two puffs po Q4-6 hour prn cough and shortness of breath ALBUTEROL SULFATE 14338846986 Active Silvia Arnold APRN Active AZITHROMYCIN 250 MG ORAL TABLET take 2 po today then take 1 po days 2-5 AZITHROMYCIN 44083339867 No Longer Active Adolfo OSORIO Active PERMETHRIN 5 % EXTERNAL CREAM apply neck to toes tonig ht and then rinse off in morning. repeat at 7 days PERMETHRIN 59506847703 No Longer Active Adolfo OSORIO Active AMOXICILLIN 500 MG ORAL CAPSULE 2 po BID x 10 days 201 07/15/00 AMOXICILLIN 66307295519 No Longer Active Yoli Mercado MD PhD Acti ve ALPRAZOLAM 0.5 MG ORAL TABLET 1 tab by mouth tid ALPRAZOLAM 67543786559 Active Nitza Mullins LPN Active INSUPEN ULTRAFIN 31G X 6 MM USE DIRECTED INSULIN PEN NEEDLE 73375308472 No Longer Active Bertrand Patel DO Active TRANSDERM-SCOP (1.5 MG) 1 MG/3DAYS TRANSDERMAL PATCH 7 2 HOUR 1 patch applied behind ear q 3 day SCOPOLAMINE BASE 10021389133 No Lo nger Active Bertrand Patel DO Active MACRODANTIN 100 MG ORAL CAPSULE one p.o. b.i.d. x2 weeks NITROFURANTOIN MACROCRYSTAL 08054791415 No Longer Active Bertrand Patel DO Active MACRODANTIN 100 MG ORAL CAPSULE one p.o. b.i.d. x2 weeks MACRODANTIN 100 MG ORAL CAPSULE 8229093 NITROFURANTOIN MACROCRYSTAL Inactive TRANSDERM-SCOP (1.5 MG) 1 [...] days PERMETHRIN 5 % EXTER NAL CREAM 320186 PERMETHRIN Inactive WELLBUTRIN 75 MG ORAL TABLET 2 times daily WELLBUTRIN 75 MG ORAL TABLET 647411 BUPROPION HCL Inactive CYMBALTA 30 MG ORAL CAPSULE DELAYED RELEASE PARTICLES 1 cap by mouth daily CYMBALTA 30 MG ORAL CAPSULE DELAYED RELE ASE PARTICLES 382834 DULOXETINE HCL Inactive AZITHROMYCIN 500 MG INTRAVENOUS SOLUTION RECONSTITUTED 1 po q da y AZITHROMYCIN 500 MG INTRAVENOUS SOLUTION RECONSTITUTED 92370 526500 AZITHROMYCIN Inactive CINNAMON ALPHA LIPOIC AC CMPLX CAPSULE by mouth twice a day in AM by mouth twice a day in PM CINNAMON ALPHA LIPOIC AC CMPLX CAPSULE ALPHA LIPOIC [id number] CAPS Inactive MICARDIS HCT 80-12.5 MG ORAL TABLET 1 qd 07/30 MICARDIS HCT 80-12.5 MG ORAL TABLET 109274 TELMISARTAN-HCTZ Inactive PRAVASTATIN SODIUM 20 MG ORAL TABLET 1 tablet by mouth daily at bedtime PRAVASTATIN SODIUM 20 MG ORAL TABLET 730238 PRAVASTATIN SODIUM Inactive FUROSEMIDE 20 MG ORAL TABLET 1 pill by mouth daily if needed for edema FUROSEMIDE 20 MG ORAL TABLET 559313 FUROSEMIDE Inactive METFORMIN HCL 500 MG ORAL TABLET 1 bid METFORMIN HCL 500 MG ORAL TABLET 298537 METFORMIN HCL Inactive B-12 1000 MCG ORAL CAPSULE 1 tab daily B -12 1000 MCG ORAL CAPSULE CYANOCOBALAMIN Inactive VITAMIN E 200 UNIT ORAL CAPSULE 1 cap po qd 1 VITAMIN E 200 UNIT ORAL CAPSULE 6413539 VITAMIN E Inactive [facility] MELATONIN 5-10 MG ORAL TABLET EXTENDED RELEASE Jair e one by mouth daily at bedtime [facility] MELATONIN 5-10 M G ORAL TABLET EXTENDED RELEASE MELATONIN-PYRIDOXINE Inactive LORTAB 7.5-500 MG ORAL TABLET take one po Q6 hours 201 09/12/01 LORTAB 7.5-500 MG ORAL TABLET 320164 HYDROCODONE-ACETAMINOPHEN Inactive AZITHROMYCIN 250 MG ORAL TABLET Take 2 tabs po today then 1 tab po daily AZITHROMYCIN 250 MG ORAL TABLET 577054 AZITHROMY BERNARDO Inactive SYMBICORT 160-4.5 MCG/ACT INHALATION AEROSOL 2 puffs BID 9 SYMBICORT 160-4.5 MCG/ACT INHALATION AEROSOL BUDESONIDE-FORM OTEROL FUMARATE Inactive ALBUTEROL SULFATE (2.5 MG/3ML) 0.083% INHALATION NEBUL IZATION SOLUTION one vial per nebulizer every 4-6 hours as needed ALBUTEROL SULFATE (2.5 MG/3ML) 0.083% INHALATION NEBULIZATION SOLUTION 684419 ALBUTER OL SULFATE Inactive NEBULIZER use as directed NEBULIZER NEBULI ZERS Inactive TESSALON PERLES 100 MG ORAL CAPSULE 1 tablet by mouth 3 times da juan pablo TESSALON PERLES 100 MG ORAL CAPSULE 058882 BENZONATATE Inactive CYCLOBENZAPRINE HCL 10 MG ORAL TABLET Take 1 tab TID PRN for mus triston pain CYCLOBENZAPRINE HCL 10 MG ORAL TABLET 357755 CYCLOBENZA ANUJA HCL Inactive AUGMENTIN 875-125 MG ORAL TABLET 1 po BID x 10 days 20 18/04/06 AUGMENTIN 875-125 MG ORAL TABLET 976702 AMOXICILLIN-POT CLAVULANATE Inactive BACTROBAN 2 % EXTERNAL CREAM Apply to affected area BID for up to 10 days BACTROBAN 2 % EXTERNAL CREAM 149602 MUPIROCIN CA LCIUM Inactive VITAMIN D3 24747 UNIT ORAL CAPSULE 1 pill Week x 4 mo nths for vitamin D deficiency/osteoporosis VITAMIN D3 94156 UNIT ORAL CAPSULE CHOLECALCIFEROL Inactive BENZONATATE 200 MG ORAL CAPSULE 1 three times a day as neede d for cough BENZONATATE 200 MG ORAL CAPSULE 843462 BENZONATA TE Inactive ZITHROMAX Z-MARTIN 250 MG ORAL TABLET 2 today and then 1 daily for 4 days ZITHROMAX Z-MARTIN 250 MG ORAL TABLET 016998 AZITHR OMYCIN Inactive ADDERALL 10 MG ORAL TABLET 1 tab twice daily 2 ADDERALL 10 MG ORAL TABLET 197324 AMPHETAMINE-DEXTROAMPHETAMINE Inactive AMOXICILLIN 500 MG ORAL CAPSULE 2 po BID x 10 days 201 07/15/00 AMOXICILLIN 500 MG ORAL CAPSULE 308908 AMOXICILLIN Inactive AZITHROMYCIN 250 MG ORAL TABLET take 2 po today then take 1 po days 2-5 AZITHROMYCIN 250 MG ORAL TABLET 875502 AZITHROMY BERNARDO Inactive LEVAQUIN 500 MG ORAL TABLET 1 pill by mouth daily 2013 LEVAQUIN 500 MG ORAL TABLET 287136 LEVOFLOXACIN Inactive AUGMENTIN 875-125 MG ORAL TABLET 1 pill by mouth twice daily 201 09/10/00 AUGMENTIN 875-125 MG ORAL TABLET 929712 AMOXICILLIN-POT CLAVULANATE Inactive AUGMENTIN 875-125 MG ORAL TABLET 1 po BID x 10 days 19/07/13 AUGMENTIN 875-125 MG ORAL TABLET 760779 AMOXICILLIN-POT CLAVULANATE Inactive PREDNISONE 20 MG ORAL TABLET take 3 tabs daily for 3 d ays, 2 tabs daily for 3 days, 1 tab daily for 3 days, 1/2 tab daily for 3 days 08/02 PREDNISONE 20 MG ORAL TABLET 004025 PREDNISONE Inactive CIPRO 500 MG ORAL TABLET 1 tablet by mouth twice daily CIPRO 500 MG ORAL TABLET 074270 CIPROFLOXACIN HCL Inactive Vital Signs Date Name Value Unit Range Description blood pressure, diastolic 79 mm[Hg] BP frederick [...] weight E&M 317.2 [lb_av] Weight Measure d Diagnostic Results Date Name Value Unit Range Description Lab Report: CBC, Comp. Metabolic Panel, HGBA1C - Chemistry sodium, serum 143 mmol/L 285-268 2936/01/02 carbon dioxide, venous blood 31.7 mmol/L 21.0-32 [...] 0-19 Encounters Code Encounter Date Provider Facility CPT-73129 Level 4 Est. Patient 15:33:35 AIR QUALITY CONSULTANT Bertrand marquez [facility] CPT-59977 Level 4 Est. Patient 12:31:54 CDT Bertrand marquez [facility] CPT-28753 Level 3 Est. Patient 11:27:00 AIR QUALITY CONSULTANT Ike Deluna MD [facility] CPT-39749 Level 3 Est. Patient 08:50:57 AIR QUALITY CONSULTANT Dangelo WINCHER [facility] CPT-48834 Level 3 Est. Patient 10:04:13 CDT Bertrand marquez [facility] CPT-29101 Level 4 Est. Patient 16:02:10 AIR QUALITY CONSULTANT Dangelo WINCHER [facility] CPT-56405 Level 3 Est. Patient 13:04:54 AIR QUALITY CONSULTANT Dangelo [facility] CPT-95240 Level 3 Est. Patient 12:56:37 CDT Bertrand marquez [facility] CPT-91665 Level 3 Est. Patient 19:12:03 CDT Yoli tolbert MD [facility] CPT-30187 Level 3 Est. Patient 14:36:01 CDT Yoli tolbert MD [facility] CPT-07379 Level 2 Est. Patient 08:00:22 CDT Jcarlos dc MD [facility] CPT-35124 Level 3 Est. Patient 19:06:55 CDT Bertrand marquez [facility] CPT-07546 Level 3 Est. Patient 10:08:23 AIR QUALITY CONSULTANT Bertrand marquez [facility] CPT-00803 Level 3 Est. Patient 16:37:54 AIR QUALITY CONSULTANT Bertrand marquez [facility] CPT-55548 Level 3 Est. Patient 11:31:59 AIR QUALITY CONSULTANT Bertrand marquez [facility] CPT-63939 Level 3 Est. Patient 10:20:08 CDT Adolfo villasenor [facility] CPT-41525 Level 3 Est. Patient 13:45:20 CDT Sanket buckley [facility] CPT-73926 Level 3 Est. Patient 12:51:06 CDT Adolfo villasenor [facility] CPT-62525 Level 3 Est. Patient 11:22:51 AIR QUALITY CONSULTANT Yoli tolbert MD [facility] CPT-58492 Level 3 Est. Patient 13:33:19 CDT Bertrand marquez [facility] Procedures Code Procedure Name Date Entry Date Standard Desc ription CPT-16734 Wound Culture - LAB USE ONLY 15:45:25 CDT 2 CPT-08240 Venipuncture Draw Fee 10:23:01 CDT CPT-J0696 Rocephin 1000 mg (Ceftriaxone) 16:20:30 AIR QUALITY CONSULTANT CPT-68116 Abx/Therapy Injection 16:20:29 AIR QUALITY CONSULTANT CPT-J0696 Rocephin 1gm Inj Solr 15:51:59 AIR QUALITY CONSULTANT CPT-75486 Chest 2V Frontal and Lat 15:20:28 AIR QUALITY CONSULTANT 07/22 CPT-06118 Breathing Tx 14:51:55 AIR QUALITY CONSULTANT CPT-07764 Breathing Tx 09:57:16 AIR QUALITY CONSULTANT CPT-58287 Knee comp 4/> V 11:58:06 AIR QUALITY CONSULTANT
--- OUTSIDE RECORDS SUMMARY | 2019-11-13 10:04 | XMS REPORT | Clinical Summary ---
Author Author Admin, Enrique Adamson Organization [facility] Address Unknown Phone Unavailable Allergies, Adverse Reactions, [...] Cough SINUSITIS, ACUTE 461.9 Active Silvia PARISI cobbler sole sinusitis, unspecified Fatigue 780.79 Active Silvia Arnold APRN Other malaise and fatigue HEALTH SCREENING ICD-V70.0 Inactive Yoli sabillon MD PhD SCABIES ICD-133.0 Inactive oYli Mercado MD PhD 201 07/14/20 FH DIABETES [...] ear ICD-931 Inactive Yoli salazar MD PhD Medication List Medication Instructions Start Date Stop Date Generic Name NDC Status Provider Patient Instruction AUGMENTIN 875-125 MG TAB 1 po BID x 10 days AMOXICILLIN- POT CLAVULANATE 02706212773 Active Adriana Bender LPN Ac tive TESSALON PERLES 100 MG CAP 1 tablet by mouth 3 times daily BENZONATATE 41397724260 Active Silvia Arnold APRN Active CHEWABLE CALCIUM 500-200-40 MG-UNT-MCG ORAL CHEW 1 chew tab bid 201 11/03/03 CALCIUM-VITAMIN D-VITAMIN K 63257032594 Active Silvia Arnold APRN Active EQ COMPLETE MULTIVIT ADULT 50+ ORAL TABS 1 tab po bid MULTIPLE VITAMINS-MINERALS 14321934322 Active Silvia Arnold APRN Act jairo HYDROCODONE-ACETAMINOPHEN 7.5-325 MG TABS TAKE ONE TAB EVERY 6 HOURS BY MOUTH NEEDED FOR PAIN HYDROCODONE-ACETAMINOPHEN 30391709762 Acti ve Bertrand Patel DO Active LORTAB 7.5-500 MG TABS take one po Q6 hours HYDROCODONE-ACETAMINOPHEN No Longer Active Nirmal Robbins RN Active [facility] MELATONIN 5-10 MG CR-TABS Take one by mouth daily at bedtime MELATONIN-PYRIDOXINE 70415131748 No Longer Active Bertrand W Jorge DO Active VITAMIN E 200 UNIT CAPS 1 cap po qd VITAMIN E 316 11996816 No Longer Active Bertrand Patel DO Active B-12 1000 MCG CAPS 1 tab daily CYANOCOBALAMIN 31 732978746 No Longer Active Bertrand Patel DO Active METFORMIN HCL 500 MG TABS 1 bid METFORMIN HCL 66570184559 No Longer Active Bertrand Patel DO Active FUROSEMIDE 20 MG TABS 1 pill by mouth daily if needed for edema FUROSEMIDE 91658551041 No Longer Active Bertrand Patel DO Act jairo PRAVASTATIN SODIUM 20 MG TABS 1 tablet by mouth daily at bedtime PRAVASTATIN SODIUM 12135404724 No Longer Active Bertrand Patel DO Active AUGMENTIN 875-125 MG TABS 1 pill by mouth twice daily AMOXICILLIN-POT CLAVULANATE 05926941090 No Longer Active Yoli Mercado MD PhD Active LEVAQUIN 500 MG TABS 1 pill by mouth daily LEVO FLOXACIN 91695120611 No Longer Active Yoli Mercado MD PhD Active CYCLOBENZAPRINE HCL 10 MG TABS Take 1 tab TID PRN for muscle pain CYCLOBENZAPRINE HCL 24707691372 Active Brittni Fernándezum CHANGE ADVISOR Active AMLODIPINE BESYLATE 5 MG TABS 1 tablet by mouth daily for bl ood pressure AMLODIPINE BESYLATE 51413378547 Active Nitza Dorman PT,RMA Active MICARDIS 80 MG TABS 1 tablet daily for blood pressure TELMISARTAN 29538477477 Active Nitza Mullins RPT,RMA Active MICARDIS HCT 80-12.5 MG TABS 1 qd TELMISARTA N-HCTZ 11195718228 No Longer Active Bertrand Patel DO Active CINNAMON ALPHA LIPOIC AC CMPLX CAPS by mouth twice a d ay in AM by mouth twice a day in PM ALPHA LIPOIC LUCF-QO-OGCRIKUP CAPS 736908 64189 No Longer Active Bertrand Patel DO Active AZITHROMYCIN 500 MG SOLR 1 po q day AZITHROMYCI N 07773151528 No Longer Active Bertrand Patel DO Active CYMBALTA 30 MG CPEP 1 cap by mouth daily DULOXE CATHI HCL 89316505530 No Longer Active Bertrand Patel DO Active CYMBALTA 60 MG CPEP 1 cap by mouth daily DULOXE CATHI HCL 52346731516 Active Nitza Mullins RPT,RMA Active WELLBUTRIN 75 MG TABS 2 times daily BUPROPION H CL 61881380302 No Longer Active Bertrand Patel DO Active PROAIR HFA 108 (90 BASE) MCG/ACT AERS take one to two puffs po Q4-6 hour prn cough and shortness of breath ALBUTEROL SULFATE 5787553274 2 Active Silvia Arnold COLLECTOR OF AQUARIUM SPECIMENS Active AZITHROMYCIN 250 MG TABS take 2 po today then take 1 po days 2-5 AZITHROMYCIN 10321476825 No Longer Active Adolfo OSORIO Active PERMETHRIN 5 % CREA apply neck to toes tonight a nd then rinse off in morning. repeat at 7 days PERMETHRIN 01165482018 No Longer Active Adolfo OSORIO Active AMOXICILLIN 500 MG CAPS 2 po BID x 10 days AMOX ICILLIN 21518890234 No Longer Active Yoli Mercado MD PhD Active ALPRAZOLAM 0.5 MG TAB 1 tab by mouth tid ALPRAZOL AM 53406629644 Active Bertrand Patel DO Active INSUPEN ULTRAFIN 31G X 6 MM MISC USE DIRECTED 03/04 INSULIN PEN NEEDLE 44230385973 No Longer Active Bertrand Patel DO Active TRANSDERM-SCOP 1.5 MG PT72 1 patch applied behind ear q 3 day 20 04/13/28 SCOPOLAMINE BASE 88798806575 No Longer Active Bertrand Patel DO Active MACRODANTIN 100 MG CAPS one p.o. b.i.d. x2 weeks 03/04 NITROFURANTOIN MACROCRYSTAL 69193512138 No Longer Active Bertrand Patel DO Active MACRODANTIN 100 MG CAPS one p.o. b.i.d. x2 weeks 03/04 MACRODANTIN 100 MG CAPS 4428702 NITROFURANTOIN MACROCRYSTAL Inactive TRANSDERM-SCOP 1.5 MG PT72 [...] at 7 days PERMETHRIN 5 % CREA 396036 PERMETHRIN Inactive WELLBUTRIN 75 MG TABS 2 times daily WELLBUTRIN 75 MG TABS 016065 BUPROPION HCL Inactive CYMBALTA 30 MG CPEP 1 cap by mouth daily CYMBALTA 30 MG CPEP 665650 DULOXETINE HCL Inactive AZITHROMYCIN 500 MG SOLR 1 po q day ALTA THROMYCIN 500 MG SOLR 91572299756 AZITHROMYCIN Inactive CINNAMON ALPHA LIPOIC AC CMPLX CAPS by mouth twice a d ay in AM by mouth twice a day in PM CINNAMON ALPHA LIPOIC AC CMPLX CAPS ALPHA LIPOIC [id number] CAPS Inactive MICARDIS HCT 80-12.5 MG TABS 1 qd MICARDI S HCT 80-12.5 MG TABS 033258 TELMISARTAN-HCTZ Inactive PRAVASTATIN SODIUM 20 MG TABS 1 tablet by mouth daily at bedtime PRAVASTATIN SODIUM 20 MG TABS 656263 PRAVASTATIN SODIUM Inactive FUROSEMIDE 20 MG TABS 1 pill by mouth daily if needed for edema FUROSEMIDE 20 MG TABS 960584 FUROSEMIDE Inactive METFORMIN HCL 500 MG TABS 1 bid METFORMIN HCL 500 MG TABS 663853 METFORMIN HCL Inactive B-12 1000 MCG CAPS 1 tab daily B-12 1000 MCG CAP S CYANOCOBALAMIN Inactive VITAMIN E 200 UNIT CAPS 1 cap po qd VITAMIN E 2 00 UNIT CAPS 8494162 VITAMIN E Inactive [facility] MELATONIN 5-10 MG CR-TABS Take one by mouth daily at bedtime [facility] MELATONIN 5-10 MG CR-TABS MELATONIN-PYRIDOXI NE Inactive LORTAB 7.5-500 MG TABS take one po Q6 hours LORTAB 7.5-500 MG TABS HYDROCODONE-ACETAMINOPHEN Inactive AMOXICILLIN 500 MG CAPS 2 po BID x 10 days AMOXICILLIN 500 MG CAPS 304493 AMOXICILLIN Inactive AZITHROMYCIN 250 MG TABS take 2 po today then take 1 po days 2-5 AZITHROMYCIN 250 MG TABS 1717789 AZITHROMYCIN Inactiv e LEVAQUIN 500 MG TABS 1 pill by mouth daily LEVAQUIN 500 MG TABS 655968 LEVOFLOXACIN Inactive AUGMENTIN 875-125 MG TABS 1 pill by mouth twice daily AUGMENTIN 875-125 MG TABS 697260 AMOXICILLIN-POT CLAVULANATE Inacti ve Vital Signs Date Name Value Unit Range Description blood pressure, diastolic - 8462-4 91 mm[Hg] BP [place] blood pressure, systolic - 8480-6 138 mm[Hg] BP sys pulse rate E&M - 8867-4 99 /min H eart rate temperature E&M 99.4 [degF] Body temp erature weight E&M - 3141-9 302 [lb_av] Weigh t Measured Diagnostic Results Date Name Value Unit Range Description Lab Report: JENNIFER INFLUENZA A/B, Myco Pn eumo - Toxicology rapid flu test Negative Negative;Positive Encounters Code Encounter Date Provider Facility CPT-71425 Level 3 Est. Patient 13:04:54 SENIOR RESEARCH ASSOCIATE Dangelo BARAJAS [facility] CPT-10484 Level 3 Est. Patient 12:56:37 CDT Bertrand marquez [facility] CPT-13370 Level 3 Est. Patient 19:12:03 CDT Yoli tolbert MD [facility]-73866 Level 3 Est. Patient 14:36:01 CDT Yoli tolbert MD [facility] CPT-30217 Level 2 Est. Patient 08:00:22 CDT Jcarlos dc MD [facility]-32657 Level 3 Est. Patient 19:06:55 CDT Bertrand marquez [facility] CPT-29447 Level 3 Est. Patient 10:08:23 SENIOR RESEARCH ASSOCIATE Bertrand marquez [facility] CPT-28723 Level 3 Est. Patient 16:37:54 SENIOR RESEARCH ASSOCIATE Bertrand marquez [facility] CPT-95564 Level 3 Est. Patient 11:31:59 SENIOR RESEARCH ASSOCIATE Bertrand marquez [facility] CPT-20341 Level 3 Est. Patient 10:20:08 CDT Adolfo villasenor [facility] CPT-00133 Level 3 Est. Patient 13:45:20 CDT Sanket buckley [facility] CPT-30388 Level 3 Est. Patient 12:51:06 CDT Adolfo villasenor [facility] CPT-32767 Level 3 Est. Patient 11:22:51 SENIOR RESEARCH ASSOCIATE Yoli tolbert MD [facility] CPT-11333 Level 3 Est. Patient 13:33:19 CDT Bertrand marquez [facility] Procedures Code Procedure Name Date Entry Date Standard Desc ription CPT-36220 Breathing Tx 09:57:16 SENIOR RESEARCH ASSOCIATE CPT-98406 Knee comp 4/> V 11:58:06 SENIOR RESEARCH ASSOCIATE
--- OUTSIDE RECORDS SUMMARY | 2019-11-13 10:05 | XMS REPORT | Clinical Summary ---
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, unspecified Fatigue 780.79 Active Silvia Arnold APRN Other malaise and fatigue Bronchitis acute with bronchospasm 466.0 Active 2 Silvia Arnold APRN Acute bronchitis Narcolepsy 347.00 Active Bertrand Patel DO Narcolepsy without cataplexy HEALTH SCREENING ICD-V70.0 Inactive Yoli sabillon MD [...] Status Provider Patient Instruction MODAFINIL 200 MG ORAL TABS Take 1/2 tab po in the am and 1/2 tab po at noon MODAFINIL 31391276911 Active Keysha Jones MA Active CYCLOBENZAPRINE HCL 10 MG TABS Take 1 tab TID PRN for muscle pain CYCLOBENZAPRINE HCL 03752048087 No Longer Active Bertrand Rowan tive TESSALON PERLES 100 MG CAP 1 tablet by mouth 3 times daily 07/07 BENZONATATE 83411295258 No Longer Active Bertrand Patel DO Ac tive NEBULIZER MISC use as directed NEBULIZERS 785892 11861 No Longer Active Bertrand Patel DO Active ALBUTEROL SULFATE 0.083 % NEBU SOLN one vial per nebul izer every 4-6 hours as needed ALBUTEROL SULFATE 37088278306 No Longer Active Bertrand Patel DO Active SYMBICORT 160-4.5 MCG/ACT AERO 2 puffs BID BUDESONIDE- FORMOTEROL FUMARATE 09804092893 No Longer Active Bertrand Patel DO Ac tive PREDNISONE 20 MG TAB take 3 tabs daily for 3 days , 2 tabs daily for 3 days, 1 tab daily for 3 days, 1/2 tab daily for 3 days P REDNISONE 93128059064 No Longer Active Silvia Arnold APRN Active AZITHROMYCIN 250 MG ORAL TABS Take 2 tabs po today then 1 ta b po daily AZITHROMYCIN 63834869510 No Longer Active Silvia Jorge gavin JEWEL INSPECTOR Active AUGMENTIN 875-125 MG TAB 1 po BID x 10 days AMOXICILLIN- POT CLAVULANATE 59729865734 No Longer Active Adriana Bender LPN Active CHEWABLE CALCIUM 500-200-40 MG-UNT-MCG ORAL CHEW 1 chew tab bid 201 11/03/03 CALCIUM-VITAMIN D-VITAMIN K 66823570849 Active Silvia Arnold APRN Active EQ COMPLETE MULTIVIT ADULT 50+ ORAL TABS 1 tab po bid MULTIPLE VITAMINS-MINERALS 78607797384 Active Silvia Arnold APRN Act jairo HYDROCODONE-ACETAMINOPHEN 7.5-325 MG TABS TAKE ONE TAB EVERY 6 HOURS BY MOUTH NEEDED FOR PAIN HYDROCODONE-ACETAMINOPHEN 63628554575 Acti ve Bertrand Patel DO Active LORTAB 7.5-500 MG TABS take one po Q6 hours HYDROCODONE-ACETAMINOPHEN No Longer Active Nirmal Robbins RN Active [facility] MELATONIN 5-10 MG CR-TABS Take one by mouth daily at bedtime MELATONIN-PYRIDOXINE 89140859824 No Longer Active Bertrand Patel DO Active VITAMIN E 200 UNIT CAPS 1 cap po qd VITAMIN E 316 78695577 No Longer Active Bertrand Patel DO Active B-12 1000 MCG CAPS 1 tab daily CYANOCOBALAMIN 31 926847709 No Longer Active Bertrand Patel DO Active METFORMIN HCL 500 MG TABS 1 bid METFORMIN HCL 14209785207 No Longer Active Bertrand Patel DO Active FUROSEMIDE 20 MG TABS 1 pill by mouth daily if needed for edema FUROSEMIDE 92039673926 No Longer Active Bertrand Patel DO Act jairo PRAVASTATIN SODIUM 20 MG TABS 1 tablet by mouth daily at bedtime PRAVASTATIN SODIUM 36464956216 No Longer Active Bertrand Patel DO Active AUGMENTIN 875-125 MG TABS 1 pill by mouth twice daily AMOXICILLIN-POT CLAVULANATE 84119324615 No Longer Active Yoli Mercado MD PhD Active LEVAQUIN 500 MG TABS 1 pill by mouth daily LEVO FLOXACIN 19212917466 No Longer Active Yoli Mercado MD PhD Active AMLODIPINE BESYLATE 5 MG TABS 1 tablet by mouth daily for bl ood pressure AMLODIPINE BESYLATE 21702111190 Active Nitza Dorman PT,RMA Active MICARDIS 80 MG TABS 1 tablet daily for blood pressure TELMISARTAN 16238792077 Active Nitza Mullins RPT,RMA Active MICARDIS HCT 80-12.5 MG TABS 1 qd TELMISARTA N-HCTZ 98973735159 No Longer Active Bertrand Patel DO Active CINNAMON ALPHA LIPOIC AC CMPLX CAPS by mouth twice a d ay in AM by mouth twice a day in PM ALPHA LIPOIC [id number] CAPS 143197 00064 No Longer Active Bertrand Patel DO Active AZITHROMYCIN 500 MG SOLR 1 po q day AZITHROMYCI N 22428369642 No Longer Active Bertrand Patel DO Active CYMBALTA 30 MG CPEP 1 cap by mouth daily DULOXE CATHI HCL 44014629257 No Longer Active Bertrand Patel DO Active CYMBALTA 60 MG CPEP 1 cap by mouth daily DULOXE CATHI HCL 70313785112 Active Nitza Mullins RPT,RMA Active WELLBUTRIN 75 MG TABS 2 times daily BUPROPION H CL 47833607119 No Longer Active Bertrand W Jorge DO Active PROAIR HFA 108 (90 BASE) MCG/ACT AERS take one to two puffs po Q4-6 hour prn cough and shortness of breath ALBUTEROL SULFATE 5285509253 2 Active Silvia Arnold JEWEL INSPECTOR Active AZITHROMYCIN 250 MG TABS take 2 po today then take 1 po days 2-5 AZITHROMYCIN 16504757688 No Longer Active Adolfo OSORIO Active PERMETHRIN 5 % CREA apply neck to toes tonight a nd then rinse off in morning. repeat at 7 days PERMETHRIN 96308035845 No Longer Active Adolfo OSORIO Active AMOXICILLIN 500 MG CAPS 2 po BID x 10 days AMOX ICILLIN 53629578934 No Longer Active Yoli Mercado MD PhD Active ALPRAZOLAM 0.5 MG TAB 1 tab by mouth tid ALPRAZOL AM 68255640158 Active Nitza Mullins RPT,RMA Active INSUPEN ULTRAFIN 31G X 6 MM MISC USE DIRECTED 03/04 INSULIN PEN NEEDLE 00307172996 No Longer Active Bertrand Patel DO Active TRANSDERM-SCOP 1.5 MG PT72 1 patch applied behind ear q 3 day 20 04/13/28 SCOPOLAMINE BASE 19899571869 No Longer Active Bertrand Patel DO Active MACRODANTIN 100 MG CAPS one p.o. b.i.d. x2 weeks 03/04 NITROFURANTOIN MACROCRYSTAL 79321166458 No Longer Active Bertrand Patel DO Active MACRODANTIN 100 MG CAPS one p.o. b.i.d. x2 weeks 03/04 MACRODANTIN 100 MG CAPS 5300386 NITROFURANTOIN MACROCRYSTAL Inactive TRANSDERM-SCOP 1.5 MG PT72 [...] at 7 days PERMETHRIN 5 % CREA 829111 PERMETHRIN Inactive WELLBUTRIN 75 MG TABS 2 times daily WELLBUTRIN 75 MG TABS BUPROPION HCL Inactive CYMBALTA 30 MG CPEP 1 cap by mouth daily CYMBALTA 30 MG CPEP 073184 DULOXETINE HCL Inactive AZITHROMYCIN 500 MG SOLR 1 po q day ALTA THROMYCIN 500 MG SOLR 64657528211 AZITHROMYCIN Inactive CINNAMON ALPHA LIPOIC AC CMPLX CAPS by mouth twice a d ay in AM by mouth twice a day in PM CINNAMON ALPHA LIPOIC AC CMPLX CAPS ALPHA LIPOIC [id number] CAPS Inactive MICARDIS HCT 80-12.5 MG TABS 1 qd MICARDI S HCT 80-12.5 MG TABS 800293 TELMISARTAN-HCTZ Inactive PRAVASTATIN SODIUM 20 MG TABS 1 tablet by mouth daily at bedtime PRAVASTATIN SODIUM 20 MG TABS 248507 PRAVASTATIN SODIUM Inactive FUROSEMIDE 20 MG TABS 1 pill by mouth daily if needed for edema FUROSEMIDE 20 MG TABS 119381 FUROSEMIDE Inactive METFORMIN HCL 500 MG TABS 1 bid METFORMIN HCL 500 MG TABS 215140 METFORMIN HCL Inactive B-12 1000 MCG CAPS 1 tab daily B-12 1000 MCG CAP S CYANOCOBALAMIN Inactive VITAMIN E 200 UNIT CAPS 1 cap po qd VITAMIN E 2 00 UNIT CAPS 0213138 VITAMIN E Inactive [facility] MELATONIN 5-10 MG CR-TABS Take one by mouth daily at bedtime [facility] MELATONIN 5-10 MG CR-TABS MELATONIN-PYRIDOXI NE Inactive LORTAB 7.5-500 MG TABS take one po Q6 hours LORTAB 7.5-500 MG TABS HYDROCODONE-ACETAMINOPHEN Inactive AZITHROMYCIN 250 MG ORAL TABS Take 2 tabs po today then 1 ta b po daily AZITHROMYCIN 250 MG ORAL TABS 3716955 AZITHROMYCI N Inactive SYMBICORT 160-4.5 MCG/ACT AERO 2 puffs BID SYMBICORT 160- 4.5 MCG/ACT AERO BUDESONIDE-FORMOTEROL FUMARATE Inactive ALBUTEROL SULFATE 0.083 % NEBU SOLN one vial per nebul izer every 4-6 hours as needed ALBUTEROL SULFATE 0.083 % NEBU SOLN 51137 8 ALBUTEROL SULFATE Inactive NEBULIZER MISC use as directed NEBULIZER MISC NEBULIZERS Inactive TESSALON PERLES 100 MG CAP 1 tablet by mouth 3 times daily 07/07 TESSALON PERLES 100 MG CAP 132477 BENZONATATE Inact jairo CYCLOBENZAPRINE HCL 10 MG TABS Take 1 tab TID PRN for muscle pain CYCLOBENZAPRINE HCL 10 MG TABS 830345 CYCLOBENZAPRINE HCL Inactive AMOXICILLIN 500 MG CAPS 2 po BID x 10 days AMOXICILLIN 500 MG CAPS 875142 AMOXICILLIN Inactive AZITHROMYCIN 250 MG TABS take 2 po today then take 1 po days 2-5 AZITHROMYCIN 250 MG TABS 0150492 AZITHROMYCIN Inactiv e LEVAQUIN 500 MG TABS 1 pill by mouth daily LEVAQUIN 500 MG TABS 506179 LEVOFLOXACIN Inactive AUGMENTIN 875-125 MG TABS 1 pill by mouth twice daily AUGMENTIN 875-125 MG TABS 771784 AMOXICILLIN-POT CLAVULANATE Inacti ve AUGMENTIN 875-125 MG TAB 1 po BID x 10 days AUGMENTIN 875- 125 MG TAB 645123 AMOXICILLIN-POT CLAVULANATE Inactive PREDNISONE 20 MG TAB take 3 tabs daily for 3 days , 2 tabs daily for 3 days, 1 tab daily for 3 days, 1/2 tab daily for 3 days PREDNISONE 20 MG TAB 486800 PREDNISONE Inactive Vital Signs Date Name Value [...] 5.8 % 4.3-6.0 cholesterol, serum 200 mg/dL 114-085 5349/07/22 triglyceride, serum, fasting 56 mg/dL 30-200 HDL cholesterol, serum 80 mg/dL 32-96 LDL cholesterol, serum 109 mg/dL 0-130 albumin/creatinine ratio, urine < 30 mg/g mg/g{creat} 0-2 9 TSH 1.16 m[iU]/mL 0.36-3.74 sodium, serum 142 mmol/L 795-025 3525/07/22 carbon dioxide, venous blood 33.1 mmol/L 21.0-32 [...] Negative;Positive Encounters Code Encounter Date Provider Facility CPT-46217 Level 3 Est. Patient 10:04:13 CDT Bertrand marquez [facility] CPT-02374 Level 4 Est. Patient 16:02:10 MUSIC ASSISTANT Dangelo JEWEL INSPECTOR [facility] CPT-73969 Level 3 Est. Patient 13:04:54 MUSIC ASSISTANT Dangelo JEWEL INSPECTOR [facility] CPT-32112 Level 3 Est. Patient 12:56:37 CDT Bertrand marquez [facility] CPT-20451 Level 3 Est. Patient 19:12:03 CDT Yoli tolbert MD [facility] CPT-57242 Level 3 Est. Patient 14:36:01 CDT Yoli tolbert MD [facility] CPT-71279 Level 2 Est. Patient 08:00:22 CDT Jcarlos dc MD [facility] CPT-41096 Level 3 Est. Patient 19:06:55 CDT Bertrand marquez [facility] CPT-54127 Level 3 Est. Patient 10:08:23 MUSIC ASSISTANT Bertrand marquez [facility] CPT-87730 Level 3 Est. Patient 16:37:54 MUSIC ASSISTANT Bertrand marquez [facility] CPT-80325 Level 3 Est. Patient 11:31:59 MUSIC ASSISTANT Bertrand marquez [facility] CPT-02395 Level 3 Est. Patient 10:20:08 CDT Adolfo villasenor [facility] CPT-18410 Level 3 Est. Patient 13:45:20 CDT Sanket buckley [facility] CPT-62291 Level 3 Est. Patient 12:51:06 CDT Adolfo villasenor [facility] CPT-53307 Level 3 Est. Patient 11:22:51 MUSIC ASSISTANT Yoli tolbert MD [facility] CPT-12469 Level 3 Est. Patient 13:33:19 CDT Bertrand marquez [facility] Procedures Code Procedure Name Date Entry Date Standard Desc ription CPT-93197 Venipuncture Draw Fee 10:23:01 CDT CPT-J0696 Rocephin 1000 mg (Ceftriaxone) 16:20:30 MUSIC ASSISTANT CPT-37505 Abx/Therapy Injection 16:20:29 MUSIC ASSISTANT CPT-J0696 Rocephin 1gm Inj Solr 15:51:59 MUSIC ASSISTANT CPT-65459 Chest 2V Frontal and Lat 15:20:28 MUSIC ASSISTANT 07/22 CPT-87084 Breathing Tx 14:51:55 MUSIC ASSISTANT CPT-81171 Breathing Tx 09:57:16 MUSIC ASSISTANT CPT-31562 Knee comp 4/> V 11:58:06 MUSIC ASSISTANT
--- OUTSIDE RECORDS SUMMARY | 2019-11-13 10:05 | XMS REPORT | Clinical Summary ---
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 Fatigue 780.79 Active Silvia Arnold APRN Other malaise and fatigue Bronchitis acute with bronchospasm 466.0 Active 2 Silvia Arnold APRN Acute bronchitis Narcolepsy 347.00 Active Bertrand Patel DO Narcolepsy without cataplexy Animal bite 919.8 Active Silvia Arnold APRN Other and unspecified superficial injury of other, multiple, and unspecified sites, without mention of infection Pharyngitis-Acute ICD-462 Inactive Bertrand Redmond DO Polyuria ICD-788.42 Inactive Yoli Mercado MD P Foreign body, ear ICD-931 Inactive Yoli salazar MD PhD HEALTH SCREENING ICD-V70.0 Inactive Yoli sabillon MD PhD SCABIES ICD-133.0 Inactive Yoli Mercado MD PhD 201 07/14/20 FH DIABETES ICD-V18.0 Inactive Yoli Mercado MD PhD 20 14/02/29 SINUSITIS, FRONTAL, ACUTE ICD-461.1 Inactive Yoli Mercado MD PhD COUGH ICD-786.2 Inactive Yoli Mercaod MD PhD 201 09/09/28 SHORTNESS OF BREATH ICD-786.05 Inactive Yoli Mercado MD PhD RIB PAIN, RIGHT SIDED ICD-786.50 Inactive Yoli Mercado MD PhD Medication List Medication Instructions Start Date Stop Date Generic Name NDC Status Provider Patient Instruction BACTROBAN 2 % CREAM Apply to affected area BID for up to 10 days 20 18/03/27 MUPIROCIN CALCIUM 82126468510 Active Silvia Arnold APRN Act jairo AUGMENTIN 875-125 MG TAB 1 po BID x 10 days AMOXICILLIN- POT CLAVULANATE 18622266960 Active Silvia Arnold APRN Activ e MODAFINIL 200 MG ORAL TABS Take 1/2 tab po in the am and 1/2 tab po at noon MODAFINIL 29886889756 Active Silvia Arnold APRN Active CYCLOBENZAPRINE HCL 10 MG TABS Take 1 tab TID PRN for muscle pain CYCLOBENZAPRINE HCL 25030256334 No Longer Active Bertrand Patel DO Ac tive TESSALON PERLES 100 MG CAP 1 tablet by mouth 3 times daily 07/07 BENZONATATE 47265456898 No Longer Active Bertrand Patel DO Ac tive NEBULIZER MISC use as directed NEBULIZERS 477607 64495 No Longer Active Bertrand Patel DO Active ALBUTEROL SULFATE 0.083 % NEBU SOLN one vial per nebul izer every 4-6 hours as needed ALBUTEROL SULFATE 54078724047 No Longer Active Bertrand Patel DO Active SYMBICORT 160-4.5 MCG/ACT AERO 2 puffs BID BUDESONIDE- FORMOTEROL FUMARATE 48765850530 No Longer Active Bertrand Patel DO Ac tive PREDNISONE 20 MG TAB take 3 tabs daily for 3 days , 2 tabs daily for 3 days, 1 tab daily for 3 days, 1/2 tab daily for 3 days P REDNISONE 67943185563 No Longer Active Silvia Arnold APRN Active AZITHROMYCIN 250 MG ORAL TABS Take 2 tabs po today then 1 ta b po daily AZITHROMYCIN 48050320497 No Longer Active Silvia gavin APRN Active AUGMENTIN 875-125 MG TAB 1 po BID x 10 days AMOXICILLIN- POT CLAVULANATE 43062709374 No Longer Active Adriana Bender LPN Active CHEWABLE CALCIUM 500-200-40 MG-UNT-MCG ORAL CHEW 1 chew tab bid 201 11/03/03 CALCIUM-VITAMIN D-VITAMIN K 64882407748 Active Silvia Arnold APRN Active EQ COMPLETE MULTIVIT ADULT 50+ ORAL TABS 1 tab po bid MULTIPLE VITAMINS-MINERALS 51818925315 Active Silvia Arnold APRN Act jairo HYDROCODONE-ACETAMINOPHEN 7.5-325 MG TABS TAKE ONE TAB EVERY 6 HOURS BY MOUTH NEEDED FOR PAIN HYDROCODONE-ACETAMINOPHEN 37668611566 Acti raheel العلي Active LORTAB 7.5-500 MG TABS take one po Q6 hours HYDROCODONE-ACETAMINOPHEN No Longer Active Nirmal Robbins RN Active [facility] MELATONIN 5-10 MG CR-TABS Take one by mouth daily at bedtime MELATONIN-PYRIDOXINE 17429653505 No Longer Active Bertrand Patel DO Active VITAMIN E 200 UNIT CAPS 1 cap po qd VITAMIN E 316 98089642 No Longer Active Bertrand Patel DO Active B-12 1000 MCG CAPS 1 tab daily CYANOCOBALAMIN 31 428688688 No Longer Active Bertrand Patel DO Active METFORMIN HCL 500 MG TABS 1 bid METFORMIN HCL 93109664820 No Longer Active Bertrand Patel DO Active FUROSEMIDE 20 MG TABS 1 pill by mouth daily if needed for edema FUROSEMIDE 10393900107 No Longer Active Bertrand Patel DO Act jairo PRAVASTATIN SODIUM 20 MG TABS 1 tablet by mouth daily at bedtime PRAVASTATIN SODIUM 15690202455 No Longer Active Bertrand Ptael DO Active AUGMENTIN 875-125 MG TABS 1 pill by mouth twice daily AMOXICILLIN-POT CLAVULANATE 12429246415 No Longer Active Yoli Mercado MD PhD Active LEVAQUIN 500 MG TABS 1 pill by mouth daily LEVO FLOXACIN 29571125864 No Longer Active Yoli Mercado MD PhD Active AMLODIPINE BESYLATE 5 MG TABS 1 tablet by mouth daily for bl ood pressure AMLODIPINE BESYLATE 07066176087 Active Keysha Jones MA Active MICARDIS 80 MG TABS 1 tablet daily for blood pressure TELMISARTAN 78817001099 Active Keysha Jones MA Active MICARDIS HCT 80-12.5 MG TABS 1 qd TELMISARTA N-HCTZ 40349112161 No Longer Active Bertrand Patel DO Active CINNAMON ALPHA LIPOIC AC CMPLX CAPS by mouth twice a d ay in AM by mouth twice a day in PM ALPHA LIPOIC [id number] CAPS 603505 24192 No Longer Active Bertrand Patel DO Active AZITHROMYCIN 500 MG SOLR 1 po q day AZITHROMYCI N 45318401149 No Longer Active Bertrand Patel DO Active CYMBALTA 30 MG CPEP 1 cap by mouth daily DULOXE CATHI HCL 09089982543 No Longer Active Bertrand Patel DO Active CYMBALTA 60 MG CPEP 1 cap by mouth daily DULOXE CATHI HCL 45028270340 Active Keysha Jones MA Active WELLBUTRIN 75 MG TABS 2 times daily BUPROPION H CL 06824779032 No Longer Active Bertrand Patel DO Active PROAIR HFA 108 (90 BASE) MCG/ACT AERS take one to two puffs po Q4-6 hour prn cough and shortness of breath ALBUTEROL SULFATE 8306196676 2 Active Silvia Arnold [employer]BER Active AZITHROMYCIN 250 MG TABS take 2 po today then take 1 po days 2-5 AZITHROMYCIN 62124153264 No Longer Active Adolfo OSORIO Active PERMETHRIN 5 % CREA apply neck to toes tonight a nd then rinse off in morning. repeat at 7 days PERMETHRIN 60758359559 No Longer Active Adolfo OSORIO Active AMOXICILLIN 500 MG CAPS 2 po BID x 10 days AMOX ICILLIN 70543547389 No Longer Active Yoli Mercado MD PhD Active ALPRAZOLAM 0.5 MG TAB 1 tab by mouth tid ALPRAZOL AM 66868066500 Active Nitza Mullins RPT,RMA Active INSUPEN ULTRAFIN 31G X 6 MM MISC USE DIRECTED 03/04 INSULIN PEN NEEDLE 26191470850 No Longer Active Bertrand Patel DO Active TRANSDERM-SCOP 1.5 MG PT72 1 patch applied behind ear q 3 day 20 04/13/28 SCOPOLAMINE BASE 01901364752 No Longer Active Bertrand Patel DO Active MACRODANTIN 100 MG CAPS one p.o. b.i.d. x2 weeks 03/04 NITROFURANTOIN MACROCRYSTAL 32204385207 No Longer Active Bertrand Patel DO Active MACRODANTIN 100 MG CAPS one p.o. b.i.d. x2 weeks 03/04 MACRODANTIN 100 MG CAPS 5274756 NITROFURANTOIN MACROCRYSTAL Inactive TRANSDERM-SCOP 1.5 MG PT72 [...] at 7 days PERMETHRIN 5 % CREA 530403 PERMETHRIN Inactive WELLBUTRIN 75 MG TABS 2 times daily WELLBUTRIN 75 MG TABS BUPROPION HCL Inactive CYMBALTA 30 MG CPEP 1 cap by mouth daily CYMBALTA 30 MG CPEP 222794 DULOXETINE HCL Inactive AZITHROMYCIN 500 MG SOLR 1 po q day ALTA THROMYCIN 500 MG SOLR 23135700635 AZITHROMYCIN Inactive CINNAMON ALPHA LIPOIC AC CMPLX CAPS by mouth twice a d ay in AM by mouth twice a day in PM CINNAMON ALPHA LIPOIC AC CMPLX CAPS ALPHA LIPOIC [id number] CAPS Inactive MICARDIS HCT 80-12.5 MG TABS 1 qd MICARDI S HCT 80-12.5 MG TABS 748875 TELMISARTAN-HCTZ Inactive PRAVASTATIN SODIUM 20 MG TABS 1 tablet by mouth daily at bedtime PRAVASTATIN SODIUM 20 MG TABS 793019 PRAVASTATIN SODIUM Inactive FUROSEMIDE 20 MG TABS 1 pill by mouth daily if needed for edema FUROSEMIDE 20 MG TABS 883552 FUROSEMIDE Inactive METFORMIN HCL 500 MG TABS 1 bid METFORMIN HCL 500 MG TABS 492610 METFORMIN HCL Inactive B-12 1000 MCG CAPS 1 tab daily B-12 1000 MCG CAP S CYANOCOBALAMIN Inactive VITAMIN E 200 UNIT CAPS 1 cap po qd VITAMIN E 2 00 UNIT CAPS 0492212 VITAMIN E Inactive [facility] MELATONIN 5-10 MG CR-TABS Take one by mouth daily at bedtime [facility] MELATONIN 5-10 MG CR-TABS MELATONIN-PYRIDOXI NE Inactive LORTAB 7.5-500 MG TABS take one po Q6 hours LORTAB 7.5-500 MG TABS HYDROCODONE-ACETAMINOPHEN Inactive AZITHROMYCIN 250 MG ORAL TABS Take 2 tabs po today then 1 ta b po daily AZITHROMYCIN 250 MG ORAL TABS 2552048 AZITHROMYCI N Inactive SYMBICORT 160-4.5 MCG/ACT AERO 2 puffs BID SYMBICORT 160- 4.5 MCG/ACT AERO BUDESONIDE-FORMOTEROL FUMARATE Inactive ALBUTEROL SULFATE 0.083 % NEBU SOLN one vial per nebul izer every 4-6 hours as needed ALBUTEROL SULFATE 0.083 % NEBU SOLN 41484 8 ALBUTEROL SULFATE Inactive NEBULIZER MISC use as directed NEBULIZER MISC NEBULIZERS Inactive TESSALON PERLES 100 MG CAP 1 tablet by mouth 3 times daily 07/07 TESSALON PERLES 100 MG CAP 788696 BENZONATATE Inact jairo CYCLOBENZAPRINE HCL 10 MG TABS Take 1 tab TID PRN for muscle pain CYCLOBENZAPRINE HCL 10 MG TABS 527578 CYCLOBENZAPRINE HCL Inactive AMOXICILLIN 500 MG CAPS 2 po BID x 10 days AMOXICILLIN 500 MG CAPS 429160 AMOXICILLIN Inactive AZITHROMYCIN 250 MG TABS take 2 po today then take 1 po days 2-5 AZITHROMYCIN 250 MG TABS 4396002 AZITHROMYCIN Inactiv e LEVAQUIN 500 MG TABS 1 pill by mouth daily LEVAQUIN 500 MG TABS 692021 LEVOFLOXACIN Inactive AUGMENTIN 875-125 MG TABS 1 pill by mouth twice daily AUGMENTIN 875-125 MG TABS 711058 AMOXICILLIN-POT CLAVULANATE Inacti ve AUGMENTIN 875-125 MG TAB 1 po BID x 10 days AUGMENTIN 875- 125 MG TAB 337315 AMOXICILLIN-POT CLAVULANATE Inactive PREDNISONE 20 MG TAB take 3 tabs daily for 3 days , 2 tabs daily for 3 days, 1 tab daily for 3 days, 1/2 tab daily for 3 days PREDNISONE 20 MG TAB 118326 PREDNISONE Inactive Vital Signs Date Name Value [...] 5.8 % 4.3-6.0 cholesterol, serum 200 mg/dL 359-563 7798/07/22 triglyceride, serum, fasting 56 mg/dL 30-200 HDL cholesterol, serum 80 mg/dL 32-96 LDL cholesterol, serum 109 mg/dL 0-130 albumin/creatinine ratio, urine < 30 mg/g mg/g{creat} 0-2 9 TSH 1.16 m[iU]/mL 0.36-3.74 sodium, serum 142 mmol/L 779-341 3280/07/22 carbon dioxide, venous blood 33.1 mmol/L 21.0-32 [...] Negative;Positive Encounters Code Encounter Date Provider Facility CPT-61820 Level 3 Est. Patient 10:04:13 CDT Bertrand marquez [facility] CPT-64981 Level 4 Est. Patient 16:02:10 DATA ANALYST Dangelo BARAJAS [facility] CPT-85180 Level 3 Est. Patient 13:04:54 DATA ANALYST Dangelo BARAJAS [facility]-28339 Level 3 Est. Patient 12:56:37 CDT Bertrand marquez [facility] CPT-90452 Level 3 Est. Patient 19:12:03 CDT Yoli tolbert MD [facility]-02518 Level 3 Est. Patient 14:36:01 CDT Yoli tolbert MD [facility]-46304 Level 2 Est. Patient 08:00:22 CDT Jcarlos dc MD [facility]-07270 Level 3 Est. Patient 19:06:55 CDT Bertrand marquez [facility]-75311 Level 3 Est. Patient 10:08:23 DATA ANALYST Bertrand marquez [facility] CPT-05484 Level 3 Est. Patient 16:37:54 DATA ANALYST Bertrand marquez [facility] CPT-63540 Level 3 Est. Patient 11:31:59 DATA ANALYST Bertrand marquez [facility] CPT-86717 Level 3 Est. Patient 10:20:08 CDT Adolfo villasenor [facility]-03029 Level 3 Est. Patient 13:45:20 CDT Sanket buckley [facility] CPT-58875 Level 3 Est. Patient 12:51:06 CDT Adolfo villasenor [facility]-02885 Level 3 Est. Patient 11:22:51 DATA ANALYST Yoli tolbert MD [facility]-68060 Level 3 Est. Patient 13:33:19 CDT Bertrand marquez [facility] Procedures Code Procedure Name Date Entry Date Standard Desc ription CPT-77305 Wound Culture - LAB USE ONLY 15:45:25 CDT 2 CPT-17332 Venipuncture Draw Fee 10:23:01 CDT CPT-J0696 Rocephin 1000 mg (Ceftriaxone) 16:20:30 DATA ANALYST CPT-19948 Abx/Therapy Injection 16:20:29 DATA ANALYST CPT-J0696 Rocephin 1gm Inj Solr 15:51:59 DATA ANALYST CPT-38059 Chest 2V Frontal and Lat 15:20:28 DATA ANALYST 07/22 CPT-91960 Breathing Tx 14:51:55 DATA ANALYST CPT-39598 Breathing Tx 09:57:16 DATA ANALYST CPT-03286 Knee comp 4/> V 11:58:06 DATA ANALYST
--- OUTSIDE RECORDS SUMMARY | 2019-11-13 10:05 | XMS REPORT | Clinical Summary ---
Author Author Admin, Enrique Adamson Organization [facility] Address Unknown Phone Unavailable Allergies, Adverse [...] malaise and fatigue Headache 784.0 Resolved Nitza Mullisn Scribe Headache Cough 786.2 Resolved Nitza Liuibe [...] infection Mycoplasma infection 041.81 Resolved Abiel Mullins Scrsven Mycoplasma infection in cond itions classified elsewhere and of unspecified site Amenorrhea, secondary 626.0 Resolved Kri sti Harpreet Scribe Absence of menstruation Depression 311 Active Bertrand Patel DO Depressive disorder, not elsewhere classified SCABIES ICD-133.0 Inactive Yoli Mercado MD PhD [...] pain, left ICD-719.46 Inactive Adele Holden hn SPAR 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 HELPER Pharyngitis-Acute ICD-462 Inactive Bertrand Redmond DO Polyuria ICD-788.42 Inactive Yoli Mercado MD P hD Cellulitis, leg, right ICD-682.6 Inactive Yuki Deluna MD Foreign body, ear ICD-931 Inactive Yoli salazar MD PhD Fatigue ICD-780.79 Inactive Ike Deluna MD 201 12/01/06 Headache ICD-784.0 Inactive Adele Feldman SPAR 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 HELPER 2017 Cough ICD-786.2 Inactive Adele Feldman SPAR 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 HELPER 06/04 SINUSITIS, ACUTE ICD-461.9 Inactive Ike lange MD Fatigue ICD-780.79 Inactive Adele Feldman SPAR 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 HELPER 2017 Bronchitis acute with bronchospasm ICD-466.0 I nactive Adele Feldman SPAR 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 HELPER Animal bite ICD-919.8 Inactive Adele Feldman LP N Mycoplasma infection ICD-041.81 Inactive Anit a Feldman SPAR 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 HELPER Amenorrhea, secondary ICD-626.0 Inactive Ani ta Feldman SPAR 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 HELPER EDEMA LEG ICD-782.3 Inactive Adele Feldman SPAR 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 HELPER 201 01/01/02 KNEE PAIN, RIGHT ICD-719.46 Inactive Adele Vau ghn SPAR 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 HELPER Medication List Medication Instructions Start Date Stop Date Generic Name NDC Status Provider Patient Instruction ADDERALL 10 MG ORAL TABLET 1 tab twice daily 2 AMPHETAMINE-DEXTROAMPHETAMINE 28559178622 No Longer Active Nitza Phi llips Scribe Active ZITHROMAX Z-MARTIN 250 MG ORAL TABLET 2 today and then 1 daily for 4 days AZITHROMYCIN 99296639611 No Longer Active Nitza Osman lips Scribe Active BENZONATATE 200 MG ORAL CAPSULE 1 three times a day as neede d for cough BENZONATATE 27574532639 No Longer Active Nitza Osman lips Scribe Active VITAMIN D3 81067 UNIT ORAL CAPSULE 1 pill Week x 4 mo nths for vitamin D deficiency/osteoporosis CHOLECALCIFEROL 66905755567 N o Longer Active Layla Mcmullen Active BACTROBAN 2 % EXTERNAL CREAM Apply to affected area BID for up to 10 days MUPIROCIN CALCIUM 73041170102 No Longer Active Ike Deluna MD Active CIPRO 500 MG ORAL TABLET 1 tablet by mouth twice daily CIPROFLOXACIN HCL 68236611930 No Longer Active Adriana Bender LPN Active AUGMENTIN 875-125 MG ORAL TABLET 1 po BID x 10 days 20 18/04/06 AMOXICILLIN-POT CLAVULANATE 87190280818 No Longer Active Adriana Bender LPN Active MODAFINIL 200 MG ORAL TABLET Take 1/2 tab po in the am and 1 /2 tab po at noon MODAFINIL 74218741107 Active Bertrand Patel DO Ac tive CYCLOBENZAPRINE HCL 10 MG ORAL TABLET Take 1 tab TID PRN for mus triston pain CYCLOBENZAPRINE HCL 79315584491 No Longer Active Bertrand Patel DO Active TESSALON PERLES 100 MG ORAL CAPSULE 1 tablet by mouth 3 times da juan pablo BENZONATATE 48437404812 No Longer Active Bertrand Patel DO Ac tive NEBULIZER use as directed NEBULIZERS 25017379330 No Longer Active Bertrand Patel DO Active ALBUTEROL SULFATE (2.5 MG/3ML) 0.083% INHALATION NEBUL IZATION SOLUTION one vial per nebulizer every 4-6 hours as needed ALBUTERO L SULFATE 03133998138 No Longer Active Bertrand Patel DO Active SYMBICORT 160-4.5 MCG/ACT INHALATION AEROSOL 2 puffs BID 9 BUDESONIDE-FORMOTEROL FUMARATE 46431052425 No Longer Active Bertrand Patel DO Active PREDNISONE 20 MG ORAL TABLET take 3 tabs daily for 3 d ays, 2 tabs daily for 3 days, 1 tab daily for 3 days, 1/2 tab daily for 3 days 08/02 PREDNISONE 18069257324 No Longer Active Silvia Arnold [employer]SC[employer] Acti ve AZITHROMYCIN 250 MG ORAL TABLET Take 2 tabs po today then 1 tab po daily AZITHROMYCIN 46485909630 No Longer Active Silvia Jorge gavin [employer] Active AUGMENTIN 875-125 MG ORAL TABLET 1 po BID x 10 days 20 19/07/13 AMOXICILLIN-POT CLAVULANATE 13757111412 No Longer Active Adriana Bender LPN Active CHEWABLE CALCIUM 500-200-40 MG-UNT-MCG ORAL TABLET CHEWABLE 1 chew tab bid CALCIUM-VITAMIN D-VITAMIN K 19770625265 Active Silvia nunes [employer]SCAPE Active EQ COMPLETE MULTIVIT ADULT 50+ ORAL TABLET 1 tab po bid MULTIPLE VITAMINS-MINERALS 36651844043 Active Silvia Arnold LABOR[employer] Act jairo HYDROCODONE-ACETAMINOPHEN 7.5-325 MG ORAL TABLET TAKE ONE TAB EVERY 6 HOURS BY MOUTH NEEDED FOR PAIN HYDROCODONE-ACETAMINOPHEN 004 13742053 Active Adele Feldman SPAR 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 HELPER Active LORTAB 7.5-500 MG ORAL TABLET take one po Q6 hours 201 09/12/01 HYDROCODONE-ACETAMINOPHEN 28713702085 No Longer Active Nirmal Robbins RN Active [facility] MELATONIN 5-10 MG ORAL TABLET EXTENDED RELEASE Jair e one by mouth daily at bedtime MELATONIN-PYRIDOXINE 54088524503 No Longer Acti ve Bertrand Patel DO Active VITAMIN E 200 UNIT ORAL CAPSULE 1 cap po qd VITAM IN E 56372949040 No Longer Active Bertrand Patel DO Active B-12 1000 MCG ORAL CAPSULE 1 tab daily CYANOCOB ALAMIN 10892523473 No Longer Active Bertrand Patel DO Active METFORMIN HCL 500 MG ORAL TABLET 1 bid METFOR MIN HCL 16944549331 No Longer Active Bertrand Patel DO Active FUROSEMIDE 20 MG ORAL TABLET 1 pill by mouth daily if needed for edema FUROSEMIDE 22362217849 No Longer Active Bertrand Patel DO Active PRAVASTATIN SODIUM 20 MG ORAL TABLET 1 tablet by mouth daily at bedtime PRAVASTATIN SODIUM 12353099437 No Longer Active Bertrand Patel DO Active AUGMENTIN 875-125 MG ORAL TABLET 1 pill by mouth twice daily 201 09/10/00 AMOXICILLIN-POT CLAVULANATE 83624077270 No Longer Active Yoli Mercado MD PhD Active LEVAQUIN 500 MG ORAL TABLET 1 pill by mouth daily 2013 LEVOFLOXACIN 34899370739 No Longer Active Yoli Mercado MD PhD Acti ve AMLODIPINE BESYLATE 5 MG ORAL TABLET 1 tablet by mouth daily for blood pressure AMLODIPINE BESYLATE 25333987885 Active Bertrand Patel DO Active MICARDIS 80 MG ORAL TABLET 1 tablet daily for blood pressure 07/30 TELMISARTAN 36188757221 Active Bertrand Patel DO Active MICARDIS HCT 80-12.5 MG ORAL TABLET 1 qd TELMISARTAN-HCTZ 00426427107 No Longer Active Bertrand Patel DO Active CINNAMON ALPHA LIPOIC AC CMPLX CAPSULE by mouth twice a day in AM by mouth twice a day in PM ALPHA LIPOIC [id number]-QL-QCVOXNTZ CA PS 87242579053 No Longer Active Bertrand Patel DO Active AZITHROMYCIN 500 MG INTRAVENOUS SOLUTION RECONSTITUTED 1 po q da y AZITHROMYCIN 99904344137 No Longer Active Bertrand Patel DO A ctive CYMBALTA 30 MG ORAL CAPSULE DELAYED RELEASE PARTICLES 1 cap by mouth daily DULOXETINE HCL 78881850384 No Longer Active Bertrand marquez DO Active CYMBALTA 60 MG ORAL CAPSULE DELAYED RELEASE PARTICLES 1 cap by mouth daily DULOXETINE HCL 57346653213 Active Bertrand Patel DO Active WELLBUTRIN 75 MG ORAL TABLET 2 times daily BUPR OPION HCL 98993579774 No Longer Active Bertrand Patel DO Active PROAIR HFA 108 (90 Base) MCG/ACT INHALATION AEROSOL SO LUTION take one to two puffs po Q4-6 hour prn cough and shortness of breath ALBUTEROL SULFATE 07638495249 Active Silvia Arnold APRN Active AZITHROMYCIN 250 MG ORAL TABLET take 2 po today then take 1 po days 2-5 AZITHROMYCIN 25503129122 No Longer Active Adolfo OSORIO Active PERMETHRIN 5 % EXTERNAL CREAM apply neck to toes tonig ht and then rinse off in morning. repeat at 7 days PERMETHRIN 77209461747 No Longer Active Adolfo OSORIO Active AMOXICILLIN 500 MG ORAL CAPSULE 2 po BID x 10 days 201 07/15/00 AMOXICILLIN 98354210689 No Longer Active Yoli Mercado MD PhD Acti ve ALPRAZOLAM 0.5 MG ORAL TABLET 1 tab by mouth tid ALPRAZOLAM 53593742149 Active Nitza Mullins LPN Active INSUPEN ULTRAFIN 31G X 6 MM USE DIRECTED INSULIN PEN NEEDLE 92407627436 No Longer Active Bertrand Patel DO Active TRANSDERM-SCOP (1.5 MG) 1 MG/3DAYS TRANSDERMAL PATCH 7 2 HOUR 1 patch applied behind ear q 3 day SCOPOLAMINE BASE 72992849324 No Lo nger Active Bertrand Patel DO Active MACRODANTIN 100 MG ORAL CAPSULE one p.o. b.i.d. x2 weeks NITROFURANTOIN MACROCRYSTAL 72085303774 No Longer Active Bertrand Patel DO Active MACRODANTIN 100 MG ORAL CAPSULE one p.o. b.i.d. x2 weeks MACRODANTIN 100 MG ORAL CAPSULE 0237298 NITROFURANTOIN MACROCRYSTAL Inactive TRANSDERM-SCOP (1.5 MG) 1 [...] days PERMETHRIN 5 % EXTER NAL CREAM 896978 PERMETHRIN Inactive WELLBUTRIN 75 MG ORAL TABLET 2 times daily WELLBUTRIN 75 MG ORAL TABLET 657403 BUPROPION HCL Inactive CYMBALTA 30 MG ORAL CAPSULE DELAYED RELEASE PARTICLES 1 cap by mouth daily CYMBALTA 30 MG ORAL CAPSULE DELAYED RELE ASE PARTICLES 461468 DULOXETINE HCL Inactive AZITHROMYCIN 500 MG INTRAVENOUS SOLUTION RECONSTITUTED 1 po q da y AZITHROMYCIN 500 MG INTRAVENOUS SOLUTION RECONSTITUTED 67290 067745 AZITHROMYCIN Inactive CINNAMON ALPHA LIPOIC AC CMPLX CAPSULE by mouth twice a day in AM by mouth twice a day in PM CINNAMON ALPHA LIPOIC AC CMPLX CAPSULE ALPHA LIPOIC [id number] CAPS Inactive MICARDIS HCT 80-12.5 MG ORAL TABLET 1 qd 07/30 MICARDIS HCT 80-12.5 MG ORAL TABLET 105221 TELMISARTAN-HCTZ Inactive PRAVASTATIN SODIUM 20 MG ORAL TABLET 1 tablet by mouth daily at bedtime PRAVASTATIN SODIUM 20 MG ORAL TABLET 788703 PRAVASTATIN SODIUM Inactive FUROSEMIDE 20 MG ORAL TABLET 1 pill by mouth daily if needed for edema FUROSEMIDE 20 MG ORAL TABLET 704249 FUROSEMIDE Inactive METFORMIN HCL 500 MG ORAL TABLET 1 bid METFORMIN HCL 500 MG ORAL TABLET 982920 METFORMIN HCL Inactive B-12 1000 MCG ORAL CAPSULE 1 tab daily B -12 1000 MCG ORAL CAPSULE CYANOCOBALAMIN Inactive VITAMIN E 200 UNIT ORAL CAPSULE 1 cap po qd 1 VITAMIN E 200 UNIT ORAL CAPSULE 5508371 VITAMIN E Inactive [facility] MELATONIN 5-10 MG ORAL TABLET EXTENDED RELEASE Jair e one by mouth daily at bedtime [facility] MELATONIN 5-10 M G ORAL TABLET EXTENDED RELEASE MELATONIN-PYRIDOXINE Inactive LORTAB 7.5-500 MG ORAL TABLET take one po Q6 hours 201 09/12/01 LORTAB 7.5-500 MG ORAL TABLET 288817 HYDROCODONE-ACETAMINOPHEN Inactive AZITHROMYCIN 250 MG ORAL TABLET Take 2 tabs po today then 1 tab po daily AZITHROMYCIN 250 MG ORAL TABLET 848638 AZITHROMY BERNARDO Inactive SYMBICORT 160-4.5 MCG/ACT INHALATION AEROSOL 2 puffs BID 9 SYMBICORT 160-4.5 MCG/ACT INHALATION AEROSOL BUDESONIDE-FORM OTEROL FUMARATE Inactive ALBUTEROL SULFATE (2.5 MG/3ML) 0.083% INHALATION NEBUL IZATION SOLUTION one vial per nebulizer every 4-6 hours as needed ALBUTEROL SULFATE (2.5 MG/3ML) 0.083% INHALATION NEBULIZATION SOLUTION 289384 ALBUTER OL SULFATE Inactive NEBULIZER use as directed NEBULIZER NEBULI ZERS Inactive TESSALON PERLES 100 MG ORAL CAPSULE 1 tablet by mouth 3 times da juan pablo TESSALON PERLES 100 MG ORAL CAPSULE 974151 BENZONATATE Inactive CYCLOBENZAPRINE HCL 10 MG ORAL TABLET Take 1 tab TID PRN for mus triston pain CYCLOBENZAPRINE HCL 10 MG ORAL TABLET 364094 CYCLOBENZA ANUJA HCL Inactive AUGMENTIN 875-125 MG ORAL TABLET 1 po BID x 10 days 20 18/04/06 AUGMENTIN 875-125 MG ORAL TABLET 499841 AMOXICILLIN-POT CLAVULANATE Inactive BACTROBAN 2 % EXTERNAL CREAM Apply to affected area BID for up to 10 days BACTROBAN 2 % EXTERNAL CREAM 241909 MUPIROCIN CA LCIUM Inactive VITAMIN D3 61937 UNIT ORAL CAPSULE 1 pill Week x 4 mo nths for vitamin D deficiency/osteoporosis VITAMIN D3 35057 UNIT ORAL CAPSULE CHOLECALCIFEROL Inactive BENZONATATE 200 MG ORAL CAPSULE 1 three times a day as neede d for cough BENZONATATE 200 MG ORAL CAPSULE 138058 BENZONATA TE Inactive ZITHROMAX Z-MARTIN 250 MG ORAL TABLET 2 today and then 1 daily for 4 days ZITHROMAX Z-MARTIN 250 MG ORAL TABLET 207353 AZITHR OMYCIN Inactive ADDERALL 10 MG ORAL TABLET 1 tab twice daily 2 ADDERALL 10 MG ORAL TABLET 898102 AMPHETAMINE-DEXTROAMPHETAMINE Inactive AMOXICILLIN 500 MG ORAL CAPSULE 2 po BID x 10 days 201 07/15/00 AMOXICILLIN 500 MG ORAL CAPSULE 807513 AMOXICILLIN Inactive AZITHROMYCIN 250 MG ORAL TABLET take 2 po today then take 1 po days 2-5 AZITHROMYCIN 250 MG ORAL TABLET 054359 AZITHROMY BERNARDO Inactive LEVAQUIN 500 MG ORAL TABLET 1 pill by mouth daily 2013 LEVAQUIN 500 MG ORAL TABLET 998785 LEVOFLOXACIN Inactive AUGMENTIN 875-125 MG ORAL TABLET 1 pill by mouth twice daily 201 09/10/00 AUGMENTIN 875-125 MG ORAL TABLET 407654 AMOXICILLIN-POT CLAVULANATE Inactive AUGMENTIN 875-125 MG ORAL TABLET 1 po BID x 10 days 19/07/13 AUGMENTIN 875-125 MG ORAL TABLET 471760 AMOXICILLIN-POT CLAVULANATE Inactive PREDNISONE 20 MG ORAL TABLET take 3 tabs daily for 3 d ays, 2 tabs daily for 3 days, 1 tab daily for 3 days, 1/2 tab daily for 3 days 08/02 PREDNISONE 20 MG ORAL TABLET 500499 PREDNISONE Inactive CIPRO 500 MG ORAL TABLET 1 tablet by mouth twice daily CIPRO 500 MG ORAL TABLET 070282 CIPROFLOXACIN HCL Inactive Vital Signs Date Name [...] HGBA1C - Chemistry sodium, serum 143 mmol/L 091-001 7422/01/02 carbon dioxide, venous blood 31.7 mmol/L 21.0-32 [...] 0-19 Encounters Code Encounter Date Provider Facility CPT-15513 Level 4 Est. Patient 15:33:35 BULLDOZER OPERATOR Bertrand marquez [facility] CPT-89386 Level 4 Est. Patient 12:31:54 CDT Bertrand marquez [facility] CPT-40473 Level 3 Est. Patient 11:27:00 BULLDOZER OPERATOR Ike Deluna MD [facility] CPT-98986 Level 3 Est. Patient 08:50:57 BULLDOZER OPERATOR Dangelo [employer]SCAPE [facility] CPT-53218 Level 3 Est. Patient 10:04:13 CDT Bertrand marquez [facility] CPT-88619 Level 4 Est. Patient 16:02:10 BULLDOZER OPERATOR [facility] CPT-14283 Level 3 Est. Patient 13:04:54 BULLDOZER OPERATOR Dangelo [facility]-84173 Level 3 Est. Patient 12:56:[address] [facility] CPT-98810 Level 3 Est. Patient 19:12:03 CDT Yoli tolbert MD [facility] CPT-03558 Level 3 Est. Patient 14:36:01 CDT Yoli tolbert MD [facility] CPT-93092 Level 2 Est. Patient 08:00:22 CDT Jcarlos dc MD [facility]-60721 Level 3 Est. Patient 19:06:[address] [facility] CPT-53638 Level 3 Est. Patient 10:08:23 BULLDOZER OPERATOR Bertrand marquez [facility] CPT-29513 Level 3 Est. Patient 16:37:54 BULLDOZER OPERATOR Bertrand marquez [facility] CPT-15528 Level 3 Est. Patient 11:31:59 BULLDOZER OPERATOR Bert[facility] marquez [facility] CPT-54162 Level 3 Est. Patient 10:20:08 CDT Adolfo villasenor [facility] CPT-81651 Level 3 Est. Patient 13:45:20 CDT Sanket buckley [facility] CPT-71776 Level 3 Est. Patient 12:51:06 CDT Adolfo villasenor [facility] CPT-96947 Level 3 Est. Patient 11:22:51 BULLDOZER OPERATOR Yoli tolbert MD PhD [facility] CPT-71192 Level 3 Est. Patient 13:33:[address] [facility] Procedures Code Procedure Name Date Entry Date Standard Desc ription CPT-74927 Wound Culture - LAB USE ONLY 15:45:25 CDT 2 CPT-50764 Venipuncture Draw Fee 10:23:01 CDT CPT-J0696 Rocephin 1000 mg (Ceftriaxone) 16:20:30 BULLDOZER OPERATOR CPT-84873 Abx/Therapy Injection 16:20:29 BULLDOZER OPERATOR CPT-J0696 Rocephin 1gm Inj Solr 15:51:59 BULLDOZER OPERATOR CPT-52747 Chest 2V Frontal and Lat 15:20:28 BULLDOZER OPERATOR 07/22 CPT-03232 Breathing Tx 14:51:55 BULLDOZER OPERATOR CPT-62226 Breathing Tx 09:57:16 BULLDOZER OPERATOR CPT-33115 Knee comp 4/> V 11:58:06 BULLDOZER OPERATOR
--- OUTSIDE RECORDS SUMMARY | 2019-11-13 10:06 | XMS REPORT | Clinical Summary ---
Author Author Admin, Enrique Adamson Organization [facility] [place] Address Unknown Phone Unavailable Allergies, Adverse Reactions, [...] day as needed for c ough BENZONATATE [id number] Active Ike Deluna MD Acti ve ZITHROMAX Z-MARTIN 250 MG TABS 2 today and then 1 daily for 4 days 201 12/01/06 AZITHROMYCIN 45485424764 Active Ike Deluna MD Active ADDERALL 10 MG ORAL TABS 1 tab twice daily AMPHETAMINE-DEXTROAMPHETAMINE 83190228831 Active Ike Deluna MD Active BACTROBAN 2 % CREAM Apply to affected area BID for up to 10 days MUPIROCIN CALCIUM 66690938191 No Longer Active Ike Deluna MD Active CIPRO 500 MG TAB 1 tablet by mouth twice daily CIPROFLOXACIN HCL 40608913573 No Longer Active Adriana Bender LPN Active AUGMENTIN 875-125 MG TAB 1 po BID x 10 days AMOXICILLIN- POT CLAVULANATE 66302919787 No Longer Active Adriana Bender LPN Active MODAFINIL 200 MG ORAL TABS Take 1/2 tab po in the am and 1/2 tab po at noon MODAFINIL 25018514173 Active Silvia Arnold APRN Active CYCLOBENZAPRINE HCL 10 MG TABS Take 1 tab TID PRN for muscle pain CYCLOBENZAPRINE HCL 79503240611 No Longer Active Bertrand Patel DO Ac tive TESSALON PERLES 100 MG CAP 1 tablet by mouth 3 times daily 07/07 BENZONATATE 83647248294 No Longer Active Bertrand Patel DO Ac tive NEBULIZER MISC use as directed NEBULIZERS 871859 00204 No Longer Active Bertrand Patel DO Active ALBUTEROL SULFATE 0.083 % NEBU SOLN one vial per nebul izer every 4-6 hours as needed ALBUTEROL SULFATE 57797649923 No Longer Active Bertrand Patel DO Active SYMBICORT 160-4.5 MCG/ACT AERO 2 puffs BID BUDESONIDE- FORMOTEROL FUMARATE 14344412598 No Longer Active Bertrand Patel DO Ac tive PREDNISONE 20 MG TAB take 3 tabs daily for 3 days , 2 tabs daily for 3 days, 1 tab daily for 3 days, 1/2 tab daily for 3 days P REDNISONE 29762605803 No Longer Active Silvia Arnold APRN Active AZITHROMYCIN 250 MG ORAL TABS Take 2 tabs po today then 1 ta b po daily AZITHROMYCIN 15711863392 No Longer Active Silvia gavin [employer] 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 AUGMENTIN 875-125 MG TAB 1 po BID x 10 days AMOXICILLIN- POT CLAVULANATE 06478828758 No Longer Active Adriana Bender LPN Active CHEWABLE CALCIUM 500-200-40 MG-UNT-MCG ORAL CHEW 1 chew tab bid 201 11/03/03 CALCIUM-VITAMIN D-VITAMIN K 68233670688 Active Silvia Arnold APRN Active EQ COMPLETE MULTIVIT ADULT 50+ ORAL TABS 1 tab po bid MULTIPLE VITAMINS-MINERALS 87848516332 Active Silvia Arnold APRN Act jairo HYDROCODONE-ACETAMINOPHEN 7.5-325 MG TABS TAKE ONE TAB EVERY 6 HOURS BY MOUTH NEEDED FOR PAIN HYDROCODONE-ACETAMINOPHEN 22441878796 Acti raheel العلي Active LORTAB 7.5-500 MG TABS take one po Q6 hours HYDROCODONE-ACETAMINOPHEN No Longer Active Nirmal Robbins RN Active [facility] MELATONIN 5-10 MG CR-TABS Take one by mouth daily at bedtime MELATONIN-PYRIDOXINE 21552117945 No Longer Active Bertrand Patel DO Active VITAMIN E 200 UNIT CAPS 1 cap po qd VITAMIN E 316 54996869 No Longer Active Bertrand Patel DO Active B-12 1000 MCG CAPS 1 tab daily CYANOCOBALAMIN 31 106340741 No Longer Active Bertrand Patel DO Active METFORMIN HCL 500 MG TABS 1 bid METFORMIN HCL 35836240017 No Longer Active Bertrand Patel DO Active FUROSEMIDE 20 MG TABS 1 pill by mouth daily if needed for edema FUROSEMIDE 63750114170 No Longer Active Bertrand Patel DO Act jairo PRAVASTATIN SODIUM 20 MG TABS 1 tablet by mouth daily at bedtime PRAVASTATIN SODIUM 57118789344 No Longer Active Bertrand Patel DO Active AUGMENTIN 875-125 MG TABS 1 pill by mouth twice daily AMOXICILLIN-POT CLAVULANATE 99697626149 No Longer Active Yoli Mercado MD PhD Active LEVAQUIN 500 MG TABS 1 pill by mouth daily LEVO FLOXACIN 67756724518 No Longer Active Yoli Mercado MD PhD Active AMLODIPINE BESYLATE 5 MG TABS 1 tablet by mouth daily for bl ood pressure AMLODIPINE BESYLATE 22590179129 Active Keysha Jones MA Active MICARDIS 80 MG TABS 1 tablet daily for blood pressure TELMISARTAN 77233209698 Active Keysha Jones MA Active MICARDIS HCT 80-12.5 MG TABS 1 qd TELMISARTA N-HCTZ 52655487476 No Longer Active Bertrand Patel DO Active CINNAMON ALPHA LIPOIC AC CMPLX CAPS by mouth twice a d ay in AM by mouth twice a day in PM ALPHA LIPOIC [id number] CAPS 199949 56724 No Longer Active Bertrand Patel DO Active AZITHROMYCIN 500 MG SOLR 1 po q day AZITHROMYCI N 60649423900 No Longer Active Bertrand Patel DO Active CYMBALTA 30 MG CPEP 1 cap by mouth daily DULOXE CATHI HCL 75177859096 No Longer Active Bertrand Patel DO Active CYMBALTA 60 MG CPEP 1 cap by mouth daily DULOXE CATHI HCL 67747439673 Active Keysha Jones MA Active WELLBUTRIN 75 MG TABS 2 times daily BUPROPION H CL 68660541029 No Longer Active Bertrand Patel DO Active PROAIR HFA 108 (90 BASE) MCG/ACT AERS take one to two puffs po Q4-6 hour prn cough and shortness of breath ALBUTEROL SULFATE 9945745633 2 Active Silvia Arnold APRN Active AZITHROMYCIN 250 MG TABS take 2 po today then take 1 po days 2-5 AZITHROMYCIN 18755331881 No Longer Active Adolfo OSORIO Active PERMETHRIN 5 % CREA apply neck to toes tonight a nd then rinse off in morning. repeat at 7 days PERMETHRIN 13986820388 No Longer Active Adolfo OSORIO Active AMOXICILLIN 500 MG CAPS 2 po BID x 10 days AMOX ICILLIN 81490885552 No Longer Active Yoli Mercado MD PhD Active ALPRAZOLAM 0.5 MG TAB 1 tab by mouth tid ALPRAZOL AM 16575004803 Active Nitza Mullins RPT,RMA Active INSUPEN ULTRAFIN 31G X 6 MM MISC USE DIRECTED 03/04 INSULIN PEN NEEDLE 54588349659 No Longer Active Bertrand Patel DO Active TRANSDERM-SCOP 1.5 MG PT72 1 patch applied behind ear q 3 day 20 04/13/28 SCOPOLAMINE BASE 35125004769 No Longer Active Bertrand Patel DO Active MACRODANTIN 100 MG CAPS one p.o. b.i.d. x2 weeks 03/04 NITROFURANTOIN MACROCRYSTAL 53567024858 No Longer Active Bertrand Patel DO Active MACRODANTIN 100 MG CAPS one p.o. b.i.d. x2 weeks 03/04 MACRODANTIN 100 MG CAPS 8643764 NITROFURANTOIN MACROCRYSTAL Inactive TRANSDERM-SCOP 1.5 MG PT72 [...] at 7 days PERMETHRIN 5 % CREA 419796 PERMETHRIN Inactive WELLBUTRIN 75 MG TABS 2 times daily WELLBUTRIN 75 MG TABS BUPROPION HCL Inactive CYMBALTA 30 MG CPEP 1 cap by mouth daily CYMBALTA 30 MG CPEP 184938 DULOXETINE HCL Inactive AZITHROMYCIN 500 MG SOLR 1 po q day ALTA THROMYCIN 500 MG SOLR 65200993261 AZITHROMYCIN Inactive CINNAMON ALPHA LIPOIC AC CMPLX CAPS by mouth twice a d ay in AM by mouth twice a day in PM CINNAMON ALPHA LIPOIC AC CMPLX CAPS ALPHA LIPOIC [id number] CAPS Inactive MICARDIS HCT 80-12.5 MG TABS 1 qd MICARDI S HCT 80-12.5 MG TABS 485552 TELMISARTAN-HCTZ Inactive PRAVASTATIN SODIUM 20 MG TABS 1 tablet by mouth daily at bedtime PRAVASTATIN SODIUM 20 MG TABS 197914 PRAVASTATIN SODIUM Inactive FUROSEMIDE 20 MG TABS 1 pill by mouth daily if needed for edema FUROSEMIDE 20 MG TABS 668678 FUROSEMIDE Inactive METFORMIN HCL 500 MG TABS 1 bid METFORMIN HCL 500 MG TABS 420583 METFORMIN HCL Inactive B-12 1000 MCG CAPS 1 tab daily B-12 1000 MCG CAP S CYANOCOBALAMIN Inactive VITAMIN E 200 UNIT CAPS 1 cap po qd VITAMIN E 2 00 UNIT CAPS 6719438 VITAMIN E Inactive [facility] MELATONIN 5-10 MG CR-TABS Take one by mouth daily at bedtime [facility] MELATONIN 5-10 MG CR-TABS MELATONIN-PYRIDOXI NE Inactive LORTAB 7.5-500 MG TABS take one po Q6 hours LORTAB 7.5-500 MG TABS HYDROCODONE-ACETAMINOPHEN Inactive AZITHROMYCIN 250 MG ORAL TABS Take 2 tabs po today then 1 ta b po daily AZITHROMYCIN 250 MG ORAL TABS 3018213 AZITHROMYCI N Inactive SYMBICORT 160-4.5 MCG/ACT AERO 2 puffs BID SYMBICORT 160- 4.5 MCG/ACT AERO BUDESONIDE-FORMOTEROL FUMARATE Inactive ALBUTEROL SULFATE 0.083 % NEBU SOLN one vial per nebul izer every 4-6 hours as needed ALBUTEROL SULFATE 0.083 % NEBU SOLN 58614 8 ALBUTEROL SULFATE Inactive NEBULIZER MISC use as directed NEBULIZER MISC NEBULIZERS Inactive TESSALON PERLES 100 MG CAP 1 tablet by mouth 3 times daily 07/07 TESSALON PERLES 100 MG CAP 133209 BENZONATATE Inact jairo CYCLOBENZAPRINE HCL 10 MG TABS Take 1 tab TID PRN for muscle pain CYCLOBENZAPRINE HCL 10 MG TABS 054390 CYCLOBENZAPRINE HCL Inactive AUGMENTIN 875-125 MG TAB 1 po BID x 10 days AUGMENTIN 875- 125 MG TAB 089840 AMOXICILLIN-POT CLAVULANATE Inactive BACTROBAN 2 % CREAM Apply to affected area BID for up to 10 days BACTROBAN 2 % CREAM 959082 MUPIROCIN CALCIUM Inactive AMOXICILLIN 500 MG CAPS 2 po BID x 10 days AMOXICILLIN 500 MG CAPS 791596 AMOXICILLIN Inactive AZITHROMYCIN 250 MG TABS take 2 po today then take 1 po days 2-5 AZITHROMYCIN 250 MG TABS 2592324 AZITHROMYCIN Inactiv e LEVAQUIN 500 MG TABS 1 pill by mouth daily LEVAQUIN 500 MG TABS 138421 LEVOFLOXACIN Inactive AUGMENTIN 875-125 MG TABS 1 pill by mouth twice daily AUGMENTIN 875-125 MG TABS 684254 AMOXICILLIN-POT CLAVULANATE Inacti ve AUGMENTIN 875-125 MG TAB 1 po BID x 10 days AUGMENTIN 875- 125 MG TAB 783618 AMOXICILLIN-POT CLAVULANATE Inactive PREDNISONE 20 MG TAB take 3 tabs daily for 3 days , 2 tabs daily for 3 days, 1 tab daily for 3 days, 1/2 tab daily for 3 days PREDNISONE 20 MG TAB 453368 PREDNISONE Inactive CIPRO 500 MG TAB 1 tablet by mouth twice daily CIPRO 500 MG TAB 814681 CIPROFLOXACIN HCL Inactive Vital Signs Date Name Value Unit Range Description blood pressure, diastolic - 8462-4 85 mm[Hg] BP ferderick blood pressure, systolic - 8480-6 138 mm[Hg] [...] 11 .6-14.8 platelet count 339 10^3/MM^3 10*3/mm3 756-325 6222/02/19 erythrocyte (RBC) count 3.95 10^6/MM^3 10*6/mm3 4.04-5.4 [...] 0.40 mg/dL 0.00-1.00 sodium, serum 142 mmol/L 348-542 2722/07/22 carbon dioxide, venous blood 33.1 mmol/L 21.0-32 .0 potassium, serum 4.6 mmol/L 3.5-5.2 chloride, serum 105 mmol/L 98-107 blood glucose 96 mg/dL 65-110 urea nitrogen, blood 16 mg/dL 7-18 creatinine, serum 0.69 mg/dL 0.55-1.30 alanine aminotransferase (SGPT), serum 22 U/L 12-78 aspartate aminotransferase (SGOT), serum 18 U/L 15-37 hemoglobin A1C, blood, as % of total hemoglobin 5.8 % 4.3-6.0 cholesterol, serum 200 mg/dL 613-463 6174/07/22 triglyceride, serum, fasting 56 mg/dL 30-200 HDL [...] Negative;Positive Encounters Code Encounter Date Provider Facility CPT-75132 Level 3 Est. Patient 11:27:00 ASSISTANT TRACK COACH Ike Deluna MD [facility] CPT-22856 Level 3 Est. Patient 08:50:57 ASSISTANT TRACK COACH Dangelo [employer]SULTANT [facility] CPT-17413 Level 3 Est. Patient 10:04:13 CDT Bertrand marquez [facility] CPT-55044 Level 4 Est. Patient 16:02:10 ASSISTANT TRACK COACH Dangelo [facility] CPT-01084 Level 3 Est. Patient 13:04:54 ASSISTANT TRACK COACH Dangelo [facility] CPT-77019 Level 3 Est. Patient 12:56:37 CDT Bertrand marquez [facility] CPT-08501 Level 3 Est. Patient 19:12:03 CDT Yoli tolbert [facility] CPT-79287 Level 3 Est. Patient 14:36:01 CDT Yoli tolbert MD [facility] CPT-72614 Level 2 Est. Patient 08:00:22 CDT Jcarlos dc MD [facility] CPT-67496 Level 3 Est. Patient 19:06:55 CDT Bertrand maruqez [facility] CPT-70213 Level 3 Est. Patient 10:08:23 ASSISTANT TRACK COACH Bertrand marquez [facility] CPT-40314 Level 3 Est. Patient 16:37:54 ASSISTANT TRACK COACH Bertrand marquez [facility] CPT-17267 Level 3 Est. Patient 11:31:59 ASSISTANT TRACK COACH Bertrand marquez [facility] CPT-42913 Level 3 Est. Patient 10:20:08 CDT Adolfo Jerzy hallist [facility] CPT-08623 Level 3 Est. Patient 13:45:[address] [facility] CPT-78361 Level 3 Est. Patient 12:51:[address] [facility] CPT-71915 Level 3 Est. Patient 11:22:51 ASSISTANT TRACK COACH Yoli tolbert MD [facility] CPT-44761 Level 3 Est. Patient 13:33:19 CDT Bertrand marquez [facility] Procedures Code Procedure Name Date Entry Date Standard Desc ription CPT-89998 Wound Culture - LAB USE ONLY 15:45:25 CDT 2 CPT-20797 Venipuncture Draw Fee 10:23:01 CDT CPT-J0696 Rocephin 1000 mg (Ceftriaxone) 16:20:30 ASSISTANT TRACK COACH CPT-22318 Abx/Therapy Injection 16:20:29 ASSISTANT TRACK COACH CPT-J0696 Rocephin 1gm Inj Solr 15:51:59 ASSISTANT TRACK COACH CPT-50928 Chest 2V Frontal and Lat 15:20:28 ASSISTANT TRACK COACH 07/22 CPT-69492 Breathing Tx 14:51:55 ASSISTANT TRACK COACH CPT-44608 Breathing Tx 09:57:16 ASSISTANT TRACK COACH CPT-96758 Knee comp 4/> V 11:58:06 ASSISTANT TRACK COACH
--- OUTSIDE RECORDS SUMMARY | 2019-11-13 10:06 | XMS REPORT | Clinical Summary ---
Author Author Admin, Enrique Adamson Organization [employer] Address Unknown Phone Unavailable Allergies, Adverse Reactions, [...] 09/09/28 SHORTNESS OF BREATH ICD-786.05 Inactive Yoli Mercaod MD PhD RIB PAIN, RIGHT SIDED ICD-786.50 [...] day as needed for c ough BENZONATATE 79156443307 Active Ike Deluna MD Acti ve ZITHROMAX Z-MARTIN 250 MG TABS 2 today and then 1 daily for 4 days 201 12/01/06 AZITHROMYCIN 27052285957 Active Ike Deluna MD Active ADDERALL 10 MG ORAL TABS 1 tab twice daily AMPHETAMINE-DEXTROAMPHETAMINE 13669839224 Active Ike Deluna MD Active BACTROBAN 2 % CREAM Apply to affected area BID for up to 10 days MUPIROCIN CALCIUM 15165742123 No Longer Active Ike Deluna MD Active CIPRO 500 MG TAB 1 tablet by mouth twice daily CIPROFLOXACIN HCL 31062142857 No Longer Active Adriana Bender LPN Active AUGMENTIN 875-125 MG TAB 1 po BID x 10 days AMOXICILLIN- POT CLAVULANATE 44735500798 No Longer Active Adriana Bender LPN Active MODAFINIL 200 MG ORAL TABS Take 1/2 tab po in the am and 1/2 tab po at noon MODAFINIL 29850813644 Active Silvia Arnold APRN Active CYCLOBENZAPRINE HCL 10 MG TABS Take 1 tab TID PRN for muscle pain CYCLOBENZAPRINE HCL 90388373731 No Longer Active Bertrand Patel DO Ac tive TESSALON PERLES 100 MG CAP 1 tablet by mouth 3 times daily 07/07 BENZONATATE 05974292388 No Longer Active Bertrand Patel DO Ac tive NEBULIZER MISC use as directed NEBULIZERS 611936 24323 No Longer Active Bertrand Patel DO Active ALBUTEROL SULFATE 0.083 % NEBU SOLN one vial per nebul izer every 4-6 hours as needed ALBUTEROL SULFATE 88974687409 No Longer Active Bertrand Patel DO Active SYMBICORT 160-4.5 MCG/ACT AERO 2 puffs BID BUDESONIDE- FORMOTEROL FUMARATE 71526685195 No Longer Active Bertrand Patel DO Ac tive PREDNISONE 20 MG TAB take 3 tabs daily for 3 days , 2 tabs daily for 3 days, 1 tab daily for 3 days, 1/2 tab daily for 3 days P REDNISONE 22660943406 No Longer Active Silvia Arnold APRN Active AZITHROMYCIN 250 MG ORAL TABS Take 2 tabs po today then 1 ta b po daily AZITHROMYCIN 74371420368 No Longer Active Silvia gavin [employer] Active AUGMENTIN 875-125 MG TAB 1 po BID x 10 days AMOXICILLIN- POT CLAVULANATE 16005176506 No Longer Active Adriana Bender LPN Active CHEWABLE CALCIUM 500-200-40 MG-UNT-MCG ORAL CHEW 1 chew tab bid 201 11/03/03 CALCIUM-VITAMIN D-VITAMIN K 14267185224 Active Silvia Arnold APRN Active EQ COMPLETE MULTIVIT ADULT 50+ ORAL TABS 1 tab po bid MULTIPLE VITAMINS-MINERALS 91286975843 Active Silvia Arnold APRN Act jairo HYDROCODONE-ACETAMINOPHEN 7.5-325 MG TABS TAKE ONE TAB EVERY 6 HOURS BY MOUTH NEEDED FOR PAIN HYDROCODONE-ACETAMINOPHEN 45310026947 Acti raheel العلي Active LORTAB 7.5-500 MG TABS take one po Q6 hours HYDROCODONE-ACETAMINOPHEN No Longer Active Nirmal Robbins RN Active [facility] MELATONIN 5-10 MG CR-TABS Take one by mouth daily at bedtime MELATONIN-PYRIDOXINE 18625098002 No Longer Active Bertrand Patel DO Active VITAMIN E 200 UNIT CAPS 1 cap po qd VITAMIN E 316 96192975 No Longer Active Bertrand Patel DO Active B-12 1000 MCG CAPS 1 tab daily CYANOCOBALAMIN 31 357300745 No Longer Active Bertrand Patel DO Active METFORMIN HCL 500 MG TABS 1 bid METFORMIN HCL 19486233949 No Longer Active Bertrand Patel DO Active FUROSEMIDE 20 MG TABS 1 pill by mouth daily if needed for edema FUROSEMIDE 17413415347 No Longer Active Bertrand Patel DO Act jairo PRAVASTATIN SODIUM 20 MG TABS 1 tablet by mouth daily at bedtime PRAVASTATIN SODIUM 36620249257 No Longer Active Bertrand Patel DO Active AUGMENTIN 875-125 MG TABS 1 pill by mouth twice daily AMOXICILLIN-POT CLAVULANATE 32429979677 No Longer Active Yoli Mercado MD PhD Active LEVAQUIN 500 MG TABS 1 pill by mouth daily LEVO FLOXACIN 56048812522 No Longer Active Yoli Mercado MD PhD Active AMLODIPINE BESYLATE 5 MG TABS 1 tablet by mouth daily for bl ood pressure AMLODIPINE BESYLATE 26150150694 Active Keysha Jones MA Active MICARDIS 80 MG TABS 1 tablet daily for blood pressure TELMISARTAN 86343445034 Active Keysha Jones MA Active MICARDIS HCT 80-12.5 MG TABS 1 qd TELMISARTA N-HCTZ 13099915316 No Longer Active Bertrand Patel DO Active CINNAMON ALPHA LIPOIC AC CMPLX CAPS by mouth twice a d ay in AM by mouth twice a day in PM ALPHA LIPOIC [id number]-AY-[id number] CAPS 649617 76876 No Longer Active Bertrand Patel DO Active AZITHROMYCIN 500 MG SOLR 1 po q day AZITHROMYCI N 95153129235 No Longer Active Bertrand Patel DO Active CYMBALTA 30 MG CPEP 1 cap by mouth daily DULOXE CATHI HCL 68151140526 No Longer Active Bertrand Patel DO Active CYMBALTA 60 MG CPEP 1 cap by mouth daily DULOXE CATHI HCL 95429568205 Active Keysha Jones MA Active WELLBUTRIN 75 MG TABS 2 times daily BUPROPION H CL 53331026340 No Longer Active Bertrand Patel DO Active PROAIR HFA 108 (90 BASE) MCG/ACT AERS take one to two puffs po Q4-6 hour prn cough and shortness of breath ALBUTEROL SULFATE 7027823118 2 Active Silvia Arnold APRN Active AZITHROMYCIN 250 MG TABS take 2 po today then take 1 po days 2-5 AZITHROMYCIN 76012037461 No Longer Active Adolfo OSORIO Active PERMETHRIN 5 % CREA apply neck to toes tonight a nd then rinse off in morning. repeat at 7 days PERMETHRIN 61071604849 No Longer Active Adolfo OSORIO Active AMOXICILLIN 500 MG CAPS 2 po BID x 10 days AMOX ICILLIN 37006480684 No Longer Active Yoli Mercado MD PhD Active ALPRAZOLAM 0.5 MG TAB 1 tab by mouth tid ALPRAZOL AM 82704017790 Active Nitza Mullins RPT,RMA Active INSUPEN ULTRAFIN 31G X 6 MM MISC USE DIRECTED 03/04 INSULIN PEN NEEDLE 81288448592 No Longer Active Bertrand Patel DO Active TRANSDERM-SCOP 1.5 MG PT72 1 patch applied behind ear q 3 day 20 04/13/28 SCOPOLAMINE BASE 84547959643 No Longer Active Bertrand Patel DO Active MACRODANTIN 100 MG CAPS one p.o. b.i.d. x2 weeks 03/04 NITROFURANTOIN MACROCRYSTAL 41275906116 No Longer Active Bertrand Patel DO Active CINNAMON ALPHA LIPOIC AC CMPLX CAPS by mouth twice a d ay in AM by mouth twice a day in PM CINNAMON ALPHA LIPOIC AC CMPLX CAPS ALPHA LIPOIC [id number] CAPS Inactive ALBUTEROL SULFATE 0.083 % NEBU SOLN one vial per nebul izer every 4-6 hours as needed ALBUTEROL SULFATE 0.083 % NEBU SOLN 79779 8 ALBUTEROL SULFATE Inactive AMOXICILLIN 500 MG CAPS 2 po BID x 10 days AMOXICILLIN 500 MG CAPS 445789 AMOXICILLIN Inactive CIPRO 500 MG TAB 1 tablet by mouth twice daily CIPRO 500 MG TAB 704529 CIPROFLOXACIN HCL Inactive CYCLOBENZAPRINE HCL 10 MG TABS Take 1 tab TID PRN for muscle pain CYCLOBENZAPRINE HCL 10 MG TABS 319801 CYCLOBENZAPRINE HCL Inactive FUROSEMIDE 20 MG TABS 1 pill by mouth daily if needed for edema FUROSEMIDE 20 MG TABS 652399 FUROSEMIDE Inactive MACRODANTIN 100 MG CAPS one p.o. b.i.d. x2 weeks 03/04 MACRODANTIN 100 MG CAPS 5876024 NITROFURANTOIN MACROCRYSTAL Inactive PREDNISONE 20 MG TAB take 3 tabs daily for 3 days , 2 tabs daily for 3 days, 1 tab daily for 3 days, 1/2 tab daily for 3 days PREDNISONE 20 MG TAB 204085 PREDNISONE Inactive VITAMIN E 200 UNIT CAPS 1 cap po qd VITAMIN E 2 00 UNIT CAPS 5925230 VITAMIN E Inactive WELLBUTRIN 75 MG TABS 2 times daily WELLBUTRIN 75 MG TABS BUPROPION HCL Inactive METFORMIN HCL 500 MG TABS 1 bid METFORMIN HCL 500 MG TABS 914889 METFORMIN HCL Inactive PERMETHRIN 5 % CREA apply neck to toes tonight a nd then rinse off in morning. repeat at 7 days PERMETHRIN 5 % CREA 748472 PERMETHRIN Inactive PRAVASTATIN SODIUM 20 MG TABS 1 tablet by mouth daily at bedtime PRAVASTATIN SODIUM 20 MG TABS 611227 PRAVASTATIN SODIUM Inactive TESSALON PERLES 100 MG CAP 1 tablet by mouth 3 times daily 07/07 TESSALON PERLES 100 MG CAP 069395 BENZONATATE Inact jairo LORTAB 7.5-500 MG TABS take one po Q6 hours LORTAB 7.5-500 MG TABS HYDROCODONE-ACETAMINOPHEN Inactive AUGMENTIN 875-125 MG TAB 1 po BID x 10 days AUGMENTIN 875- 125 MG TAB 610343 AMOXICILLIN-POT CLAVULANATE Inactive AUGMENTIN 875-125 MG TABS 1 pill by mouth twice daily AUGMENTIN 875-125 MG TABS 271236 AMOXICILLIN-POT CLAVULANATE Inacti ve AUGMENTIN 875-125 MG TAB 1 po BID x 10 days AUGMENTIN 875- 125 MG TAB 587429 AMOXICILLIN-POT CLAVULANATE Inactive NEBULIZER MISC use as directed NEBULIZER MISC NEBULIZERS Inactive LEVAQUIN 500 MG TABS 1 pill by mouth daily LEVAQUIN 500 MG TABS 397829 LEVOFLOXACIN Inactive AZITHROMYCIN 250 MG TABS take 2 po today then take 1 po days 2-5 AZITHROMYCIN 250 MG TABS 6163926 AZITHROMYCIN Inactiv e AZITHROMYCIN 250 MG ORAL TABS Take 2 tabs po today then 1 ta b po daily AZITHROMYCIN 250 MG ORAL TABS 7399937 AZITHROMYCI N Inactive AZITHROMYCIN 500 MG SOLR 1 po q day ALTA THROMYCIN 500 MG SOLR 10134729944 AZITHROMYCIN Inactive BACTROBAN 2 % CREAM Apply to affected area BID for up to 10 days BACTROBAN 2 % CREAM 878392 MUPIROCIN CALCIUM Inactive MICARDIS HCT 80-12.5 MG TABS 1 qd MICARDI S HCT 80-12.5 MG TABS 032737 TELMISARTAN-HCTZ Inactive CYMBALTA 30 MG CPEP 1 cap by mouth daily CYMBALTA 30 MG CPEP 655887 DULOXETINE HCL Inactive SYMBICORT 160-4.5 MCG/ACT AERO 2 puffs BID SYMBICORT 160- 4.5 MCG/ACT AERO BUDESONIDE-FORMOTEROL FUMARATE Inactive INSUPEN ULTRAFIN 31G X 6 MM MISC USE DIRECTED 03/04 INSUPEN ULTRAFIN 31G X 6 MM MISC INSULIN PEN NEEDLE Inactive B-12 1000 MCG CAPS 1 tab daily B-12 1000 MCG CAP S CYANOCOBALAMIN Inactive [facility] MELATONIN 5-10 MG CR-TABS Take one by mouth daily at bedtime [facility] MELATONIN 5-10 MG CR-TABS MELATONIN-PYRIDOXI NE Inactive TRANSDERM-SCOP 1.5 MG PT72 1 patch applied behind ear q 3 day 20 04/13/28 TRANSDERM-SCOP 1.5 MG PT72 SCOPOLAMINE BASE Inac tive Vital Signs Date Name Value Unit Range [...] 1.16 m[iU]/mL 0.36-3.74 sodium, serum 142 mmol/L 731-360 7579/07/22 carbon dioxide, venous blood 33.1 mmol/L 21.0-32 [...] 5.8 % 4.3-6.0 cholesterol, serum 200 mg/dL 604-184 2672/07/22 triglyceride, serum, fasting 56 mg/dL 30-200 HDL [...] 0-19 Encounters Code Encounter Date Provider Facility CPT-44187 Level 3 Est. Patient 11:27:00 INPATIENT AUDITOR Ike Deluna MD [facility] CPT-50585 Level 3 Est. Patient 08:50:57 INPATIENT AUDITOR Dangelo [employer] [facility] CPT-24900 Level 3 Est. Patient 10:04:13 CDT Bertrand marquez [facility] CPT-06716 Level 4 Est. Patient 16:02:10 INPATIENT AUDITOR Dangelo [facility] CPT-39583 Level 3 Est. Patient 13:04:54 INPATIENT AUDITOR Dangelo [facility] CPT-13768 Level 3 Est. Patient 12:56:37 CDT Bertrand marquez [facility] CPT-08643 Level 3 Est. Patient 19:12:03 CDT Yoli tolbert MD PhD [facility] CPT-07513 Level 3 Est. Patient 14:36:01 CDT Yoli tolbert MD [facility] CPT-02124 Level 2 Est. Patient 08:00:22 CDT Jcarlos dc MD -[id number] Level 3 Est. Patient 19:06:55 CDT Bertrand marquez [facility] CPT-30255 Level 3 Est. Patient 10:08:23 INPATIENT AUDITOR Bertrand marquez [facility] CPT-16265 Level 3 Est. Patient 16:37:54 INPATIENT AUDITOR Bertrand marquez [facility] CPT-89105 Level 3 Est. Patient 11:31:59 INPATIENT AUDITOR Bertrand marquez [facility] CPT-58129 Level 3 Est. Patient 10:20:08 CDT Demie Ahl jacklyn [facility] CPT-61786 Level 3 Est. Patient 13:45:20 CDT Sanket Garciakelvin buckley [facility] CPT-40598 Level 3 Est. Patient 12:51:06 CDT Adolfo Bertrand jacklyn [facility] CPT-01939 Level 3 Est. Patient 11:22:51 INPATIENT AUDITOR Yoli tolbert MD PhD [facility] CPT-31398 Level 3 Est. Patient 13:33:19 CDT Bertrand marquez DO [facility] Procedures Code Procedure Name Date Entry Date Standard Desc ription CPT-86709 Wound Culture - LAB USE ONLY 15:45:25 CDT 2 CPT-35895 Venipuncture Draw Fee 10:23:01 CDT CPT-J0696 Rocephin 1000 mg (Ceftriaxone) 16:20:30 INPATIENT AUDITOR CPT-07485 Abx/Therapy Injection 16:20:29 INPATIENT AUDITOR CPT-J0696 Rocephin 1gm Inj Solr 15:51:59 INPATIENT AUDITOR CPT-10284 Chest 2V Frontal and Lat 15:20:28 INPATIENT AUDITOR 07/22 CPT-41235 Breathing Tx 14:51:55 INPATIENT AUDITOR CPT-53408 Breathing Tx 09:57:16 INPATIENT AUDITOR CPT-78482 Knee comp 4/> V 11:58:06 INPATIENT AUDITOR
--- OUTSIDE RECORDS SUMMARY | 2019-11-13 10:06 | XMS REPORT | Clinical Summary ---
Author Author Admin, Enrique Adamson Organization [email or web address] Address Unknown Phone Unavailable Allergies, Adverse Reactions, [...] ear ICD-931 Inactive Yoli salazar MD PhD SINUSITIS, FRONTAL, ACUTE ICD-461.1 Inactive Yoli Mercado MD PhD SINUSITIS, ACUTE ICD-461.9 Inactive Ike lange MD Cellulitis, leg, right ICD-682.6 Inactive Yuki Deluna MD Fatigue ICD-780.79 Inactive Ike Deluna MD 201 12/01/06 Medication List Medication Instructions Start Date Stop Date Generic Name NDC Status Provider Patient Instruction VITAMIN D3 04345 UNIT CAPS 1 pill Week x 4 months for vitamin D deficiency/osteoporosis CHOLECALCIFEROL 34371846680 Active Darlyn Monzon Active BENZONATATE 200 MG ORAL CAPS 1 three times a day as needed for c ough BENZONATATE 99764188310 Active Ike Deluna MD Acti ve ZITHROMAX Z-MARTIN 250 MG TABS 2 today and then 1 daily for 4 days 201 12/01/06 AZITHROMYCIN 17264372068 Active Ike Deluna MD Active ADDERALL 10 MG ORAL TABS 1 tab twice daily AMPHETAMINE-DEXTROAMPHETAMINE 52791123764 Active Ike Deluna MD Active BACTROBAN 2 % CREAM Apply to affected area BID for up to 10 days MUPIROCIN CALCIUM 45315801150 No Longer Active Ike Deluna MD Active CIPRO 500 MG TAB 1 tablet by mouth twice daily CIPROFLOXACIN HCL 46994873017 No Longer Active Adriana Bender LPN Active AUGMENTIN 875-125 MG TAB 1 po BID x 10 days AMOXICILLIN- POT CLAVULANATE 65081483123 No Longer Active Adriana Bender LPN Active MODAFINIL 200 MG ORAL TABS Take 1/2 tab po in the am and 1/2 tab po at noon MODAFINIL 28971009148 Active Darlyn Monzon A ctive CYCLOBENZAPRINE HCL 10 MG TABS Take 1 tab TID PRN for muscle pain CYCLOBENZAPRINE HCL 39074116531 No Longer Active Bertrand Patel DO Ac tive TESSALON PERLES 100 MG CAP 1 tablet by mouth 3 times daily 07/07 BENZONATATE 60739971148 No Longer Active Bertrand Patel DO Ac tive NEBULIZER MISC use as directed NEBULIZERS 949415 96545 No Longer Active Bertrand Patel DO Active ALBUTEROL SULFATE 0.083 % NEBU SOLN one vial per nebul izer every 4-6 hours as needed ALBUTEROL SULFATE 07418932328 No Longer Active Bertrand Patel DO Active SYMBICORT 160-4.5 MCG/ACT AERO 2 puffs BID BUDESONIDE- FORMOTEROL FUMARATE 29962974074 No Longer Active Bertrand Patel DO Ac tive PREDNISONE 20 MG TAB take 3 tabs daily for 3 days , 2 tabs daily for 3 days, 1 tab daily for 3 days, 1/2 tab daily for 3 days P REDNISONE 35906039934 No Longer Active Silvia Arnold APRN Active AZITHROMYCIN 250 MG ORAL TABS Take 2 tabs po today then 1 ta b po daily AZITHROMYCIN 40627251123 No Longer Active Silvia Jorge leslye TOVARN Active AUGMENTIN 875-125 MG TAB 1 po BID x 10 days AMOXICILLIN- POT CLAVULANATE 33303290507 No Longer Active Adriana Bender LPN Active CHEWABLE CALCIUM 500-200-40 MG-UNT-MCG ORAL CHEW 1 chew tab bid 201 11/03/03 CALCIUM-VITAMIN D-VITAMIN K 76064323792 Active Silvia Arnold APRN Active EQ COMPLETE MULTIVIT ADULT 50+ ORAL TABS 1 tab po bid MULTIPLE VITAMINS-MINERALS 44429206543 Active Silvia Arnold APRN Act jairo HYDROCODONE-ACETAMINOPHEN 7.5-325 MG TABS TAKE ONE TAB EVERY 6 HOURS BY MOUTH NEEDED FOR PAIN HYDROCODONE-ACETAMINOPHEN 77750941015 Acti raheel Mcmullen Active LORTAB 7.5-500 MG TABS take one po Q6 hours HYDROCODONE-ACETAMINOPHEN No Longer Active Nirmal Robbins RN Active [facility] MELATONIN 5-10 MG CR-TABS Take one by mouth daily at bedtime MELATONIN-PYRIDOXINE 64466975716 No Longer Active Bertrand Patel DO Active VITAMIN E 200 UNIT CAPS 1 cap po qd VITAMIN E 316 79266965 No Longer Active Bertrand Patel DO Active B-12 1000 MCG CAPS 1 tab daily CYANOCOBALAMIN 31 434676372 No Longer Active Bertrand Patel DO Active METFORMIN HCL 500 MG TABS 1 bid METFORMIN HCL 62599221949 No Longer Active Bertrand Patel DO Active FUROSEMIDE 20 MG TABS 1 pill by mouth daily if needed for edema FUROSEMIDE 07967793831 No Longer Active Bertrand Patel DO Act jairo PRAVASTATIN SODIUM 20 MG TABS 1 tablet by mouth daily at bedtime PRAVASTATIN SODIUM 96115458160 No Longer Active Bertrand Patel DO Active AUGMENTIN 875-125 MG TABS 1 pill by mouth twice daily AMOXICILLIN-POT CLAVULANATE 52468158593 No Longer Active Yoli Mercado MD PhD Active LEVAQUIN 500 MG TABS 1 pill by mouth daily LEVO FLOXACIN 34765665937 No Longer Active Yoli Mercado MD PhD Active AMLODIPINE BESYLATE 5 MG TABS 1 tablet by mouth daily for bl ood pressure AMLODIPINE BESYLATE 55150105168 Active Darlyn Monzon Active MICARDIS 80 MG TABS 1 tablet daily for blood pressure TELMISARTAN 15120277435 Active Bertrand Patel DO Active MICARDIS HCT 80-12.5 MG TABS 1 qd TELMISARTA N-HCTZ 62657283462 No Longer Active Bertrand Patel DO Active CINNAMON ALPHA LIPOIC AC CMPLX CAPS by mouth twice a d ay in AM by mouth twice a day in PM ALPHA LIPOIC EQKG-[id number]-[id number] CAPS 550186 24893 No Longer Active Bertrand Patel DO Active AZITHROMYCIN 500 MG SOLR 1 po q day AZITHROMYCI N 48139400370 No Longer Active Bertrand Patel DO Active CYMBALTA 30 MG CPEP 1 cap by mouth daily DULOXE CATHI HCL 17227317632 No Longer Active Bertrand Patel DO Active CYMBALTA 60 MG CPEP 1 cap by mouth daily DULOXE CATHI HCL 26920161476 Active Keysha Jones MA Active WELLBUTRIN 75 MG TABS 2 times daily BUPROPION H CL 16268561939 No Longer Active Bertrand W Jorge DO Active PROAIR HFA 108 (90 BASE) MCG/ACT AERS take one to two puffs po Q4-6 hour prn cough and shortness of breath ALBUTEROL SULFATE 8328758719 2 Active Silvia Arnold TIMBER HEWER Active AZITHROMYCIN 250 MG TABS take 2 po today then take 1 po days 2-5 AZITHROMYCIN 52988919387 No Longer Active Adolfo OSORIO Active PERMETHRIN 5 % CREA apply neck to toes tonight a nd then rinse off in morning. repeat at 7 days PERMETHRIN 64758677556 No Longer Active Adolfo OSORIO Active AMOXICILLIN 500 MG CAPS 2 po BID x 10 days AMOX ICILLIN 34622250440 No Longer Active Yoli Mercado MD PhD Active ALPRAZOLAM 0.5 MG TAB 1 tab by mouth tid ALPRAZOL AM 29922748915 Active Nitza Mullins RPT,RMA Active INSUPEN ULTRAFIN 31G X 6 MM MISC USE DIRECTED 03/04 INSULIN PEN NEEDLE 17394248418 No Longer Active Bertrand Patel DO Active TRANSDERM-SCOP 1.5 MG PT72 1 patch applied behind ear q 3 day 20 04/13/28 SCOPOLAMINE BASE 87132876474 No Longer Active Bertrand Patel DO Active MACRODANTIN 100 MG CAPS one p.o. b.i.d. x2 weeks 03/04 NITROFURANTOIN MACROCRYSTAL 40262386734 No Longer Active Bertrand Patel DO Active MACRODANTIN 100 MG CAPS one p.o. b.i.d. x2 weeks 03/04 MACRODANTIN 100 MG CAPS 0126665 NITROFURANTOIN MACROCRYSTAL Inactive TRANSDERM-SCOP 1.5 MG PT72 [...] at 7 days PERMETHRIN 5 % CREA 627710 PERMETHRIN Inactive WELLBUTRIN 75 MG TABS 2 times daily WELLBUTRIN 75 MG TABS BUPROPION HCL Inactive CYMBALTA 30 MG CPEP 1 cap by mouth daily CYMBALTA 30 MG CPEP 016504 DULOXETINE HCL Inactive AZITHROMYCIN 500 MG SOLR 1 po q day ALTA THROMYCIN 500 MG SOLR 86887169226 AZITHROMYCIN Inactive CINNAMON ALPHA LIPOIC AC CMPLX CAPS by mouth twice a d ay in AM by mouth twice a day in PM CINNAMON ALPHA LIPOIC AC CMPLX CAPS ALPHA LIPOIC [id number]-HF-WEPOVLVX CAPS Inactive MICARDIS HCT 80-12.5 MG TABS 1 qd MICARDI S HCT 80-12.5 MG TABS 849612 TELMISARTAN-HCTZ Inactive PRAVASTATIN SODIUM 20 MG TABS 1 tablet by mouth daily at bedtime PRAVASTATIN SODIUM 20 MG TABS 431804 PRAVASTATIN SODIUM Inactive FUROSEMIDE 20 MG TABS 1 pill by mouth daily if needed for edema FUROSEMIDE 20 MG TABS 410567 FUROSEMIDE Inactive METFORMIN HCL 500 MG TABS 1 bid METFORMIN HCL 500 MG TABS 630433 METFORMIN HCL Inactive B-12 1000 MCG CAPS 1 tab daily B-12 1000 MCG CAP S CYANOCOBALAMIN Inactive VITAMIN E 200 UNIT CAPS 1 cap po qd VITAMIN E 2 00 UNIT CAPS 4510257 VITAMIN E Inactive [facility] MELATONIN 5-10 MG CR-TABS Take one by mouth daily at bedtime [facility] MELATONIN 5-10 MG CR-TABS MELATONIN-PYRIDOXI NE Inactive LORTAB 7.5-500 MG TABS take one po Q6 hours LORTAB 7.5-500 MG TABS HYDROCODONE-ACETAMINOPHEN Inactive AZITHROMYCIN 250 MG ORAL TABS Take 2 tabs po today then 1 ta b po daily AZITHROMYCIN 250 MG ORAL TABS 2206097 AZITHROMYCI N Inactive SYMBICORT 160-4.5 MCG/ACT AERO 2 puffs BID SYMBICORT 160- 4.5 MCG/ACT AERO BUDESONIDE-FORMOTEROL FUMARATE Inactive ALBUTEROL SULFATE 0.083 % NEBU SOLN one vial per nebul izer every 4-6 hours as needed ALBUTEROL SULFATE 0.083 % NEBU SOLN 82935 8 ALBUTEROL SULFATE Inactive NEBULIZER MISC use as directed NEBULIZER MISC NEBULIZERS Inactive TESSALON PERLES 100 MG CAP 1 tablet by mouth 3 times daily 07/07 TESSALON PERLES 100 MG CAP 408061 BENZONATATE Inact jairo CYCLOBENZAPRINE HCL 10 MG TABS Take 1 tab TID PRN for muscle pain CYCLOBENZAPRINE HCL 10 MG TABS 310867 CYCLOBENZAPRINE HCL Inactive AUGMENTIN 875-125 MG TAB 1 po BID x 10 days AUGMENTIN 875- 125 MG TAB 153354 AMOXICILLIN-POT CLAVULANATE Inactive BACTROBAN 2 % CREAM Apply to affected area BID for up to 10 days BACTROBAN 2 % CREAM 583733 MUPIROCIN CALCIUM Inactive AMOXICILLIN 500 MG CAPS 2 po BID x 10 days AMOXICILLIN 500 MG CAPS 056761 AMOXICILLIN Inactive AZITHROMYCIN 250 MG TABS take 2 po today then take 1 po days 2-5 AZITHROMYCIN 250 MG TABS 1488835 AZITHROMYCIN Inactiv e LEVAQUIN 500 MG TABS 1 pill by mouth daily LEVAQUIN 500 MG TABS 468647 LEVOFLOXACIN Inactive AUGMENTIN 875-125 MG TABS 1 pill by mouth twice daily AUGMENTIN 875-125 MG TABS 526238 AMOXICILLIN-POT CLAVULANATE Inacti ve AUGMENTIN 875-125 MG TAB 1 po BID x 10 days AUGMENTIN 875- 125 MG TAB 520965 AMOXICILLIN-POT CLAVULANATE Inactive PREDNISONE 20 MG TAB take 3 tabs daily for 3 days , 2 tabs daily for 3 days, 1 tab daily for 3 days, 1/2 tab daily for 3 days PREDNISONE 20 MG TAB 262015 PREDNISONE Inactive CIPRO 500 MG TAB 1 tablet by mouth twice daily CIPRO 500 MG TAB 573860 CIPROFLOXACIN HCL Inactive Vital Signs Date Name [...] 5.8 % 4.3-6.0 cholesterol, serum 200 mg/dL 046-753 0133/07/22 triglyceride, serum, fasting 56 mg/dL 30-200 HDL cholesterol, serum 80 mg/dL 32-96 LDL cholesterol, serum 109 mg/dL 0-130 albumin/creatinine ratio, urine < 30 mg/g mg/g{creat} 0-2 9 TSH 1.16 m[iU]/mL 0.36-3.74 sodium, serum 142 mmol/L 168-995 2343/07/22 carbon dioxide, venous blood 33.1 mmol/L 21.0-32 [...] 0-19 Encounters Code Encounter Date Provider Facility CPT-54364 Level 4 Est. Patient 12:31:54 CDT Bertrand marquez [facility] CPT-54942 Level 3 Est. Patient 11:27:00 SECTION SUPERVISOR Ike Deluna MD [facility] CPT-66660 Level 3 Est. Patient 08:50:57 SECTION SUPERVISOR Dangelo TIMBER HEWER [facility] CPT-00821 Level 3 Est. Patient 10:04:13 CDT Bertrand marquez [facility] CPT-30159 Level 4 Est. Patient 16:02:10 SECTION SUPERVISOR Dangelo BARAJAS [facility] CPT-66826 Level 3 Est. Patient 13:04:54 SECTION SUPERVISOR Dangelo BARAJAS [facility] CPT-22923 Level 3 Est. Patient 12:56:37 CDT Bertrand marquez [facility] CPT-02775 Level 3 Est. Patient 19:12:03 CDT Yoli tolbert MD [facility]-58757 Level 3 Est. Patient 14:36:01 CDT Yoli tolbert MD [facility] CPT-74383 Level 2 Est. Patient 08:00:22 CDT Jcarlos dc MD [facility]-05085 Level 3 Est. Patient 19:06:55 CDT Bertrand marquez [facility] CPT-49078 Level 3 Est. Patient 10:08:23 SECTION SUPERVISOR Bertrand marquez [facility] CPT-60725 Level 3 Est. Patient 16:37:54 SECTION SUPERVISOR Bertrand marquez [facility] CPT-85309 Level 3 Est. Patient 11:31:59 SECTION SUPERVISOR Bertrand marquez [facility] CPT-70732 Level 3 Est. Patient 10:20:08 CDT Adolfo villasenor [facility] CPT-30880 Level 3 Est. Patient 13:45:20 CDT Sanket Josekelvin buckley [facility] CPT-47491 Level 3 Est. Patient 12:51:06 CDT Adolfo villasenor [facility] CPT-22323 Level 3 Est. Patient 11:22:51 SECTION SUPERVISOR Yoli tolbert MD [facility] CPT-80220 Level 3 Est. Patient 13:33:19 CDT Bertrand marquez [facility] Procedures Code Procedure Name Date Entry Date Standard Desc ription CPT-67261 Wound Culture - LAB USE ONLY 15:45:25 CDT 2 CPT-15763 Venipuncture Draw Fee 10:23:01 CDT CPT-J0696 Rocephin 1000 mg (Ceftriaxone) 16:20:30 SECTION SUPERVISOR CPT-53204 Abx/Therapy Injection 16:20:29 SECTION SUPERVISOR CPT-J0696 Rocephin 1gm Inj Solr 15:51:59 SECTION SUPERVISOR CPT-80001 Chest 2V Frontal and Lat 15:20:28 SECTION SUPERVISOR 07/22 CPT-11976 Breathing Tx 14:51:55 SECTION SUPERVISOR CPT-08368 Breathing Tx 09:57:16 SECTION SUPERVISOR CPT-79444 Knee comp 4/> V 11:58:06 SECTION SUPERVISOR
--- OUTSIDE RECORDS SUMMARY | 2019-11-13 10:07 | XMS REPORT | Clinical Summary ---
Author Author Admin, Enrique Adamson Organization [employer] Address Unknown Phone Unavailable Allergies, Adverse Reactions, [...] 09/09/28 EDEMA LEG ICD-782.3 Inactive Adele Feldman CLASSIFICATION AND TREATMENT DIRECTOR 201 01/01/02 SHORTNESS OF BREATH ICD-786.05 Inactive Yoli Mercado MD PhD RIB PAIN, RIGHT SIDED ICD-786.50 Inactive Yoli Mercado MD PhD KNEE PAIN, RIGHT ICD-719.46 Inactive Adele Esqueda ghn CLASSIFICATION AND TREATMENT DIRECTOR Knee pain, left ICD-719.46 Inactive Adele Holden hn CLASSIFICATION AND TREATMENT DIRECTOR Pharyngitis-Acute ICD-462 Inactive Bertrand Redmond DO Polyuria ICD-788.42 Inactive Yoli Mercado MD P hD Cellulitis, leg, right ICD-682.6 Inactive Yuki Deluna MD Foreign body, ear ICD-931 Inactive Yoli salazar MD PhD Fatigue ICD-780.79 Inactive Ike Deluna MD 201 12/01/06 Headache ICD-784.0 Inactive Adele Feldman CLASSIFICATION AND TREATMENT DIRECTOR 2017 Cough ICD-786.2 Inactive Adele Feldman CLASSIFICATION AND TREATMENT DIRECTOR 06/04 SINUSITIS, ACUTE ICD-461.9 Inactive Ike lange MD Fatigue ICD-780.79 Inactive Adele Feldman CLASSIFICATION AND TREATMENT DIRECTOR 2017 Bronchitis acute with bronchospasm ICD-466.0 I nactive Adele Feldman CLASSIFICATION AND TREATMENT DIRECTOR Animal bite ICD-919.8 Inactive Adele Feldman LP N Mycoplasma infection ICD-041.81 Inactive Anit a Feldman CLASSIFICATION AND TREATMENT DIRECTOR Amenorrhea, secondary ICD-626.0 Inactive Ani quinton Downsn CLASSIFICATION AND TREATMENT DIRECTOR Medication List Medication Instructions Start Date Stop Date Generic Name NDC Status Provider Patient Instruction ADDERALL 10 MG ORAL TABLET 1 tab twice daily 2 AMPHETAMINE-DEXTROAMPHETAMINE 88455294434 No Longer Active Nitza Phi llips Scribe Active ZITHROMAX Z-MARTIN 250 MG ORAL TABLET 2 today and then 1 daily for 4 days AZITHROMYCIN 28547936744 No Longer Active Nitza Osman lips Scribe Active BENZONATATE 200 MG ORAL CAPSULE 1 three times a day as neede d for cough BENZONATATE 41999003258 No Longer Active Nitza Osman lips Scribe Active VITAMIN D3 60805 UNIT ORAL CAPSULE 1 pill Week x 4 mo nths for vitamin D deficiency/osteoporosis CHOLECALCIFEROL 11831807821 N o Longer Active Layla Mcmullen Active BACTROBAN 2 % EXTERNAL CREAM Apply to affected area BID for up to 10 days MUPIROCIN CALCIUM 22185481984 No Longer Active Ike Deulna MD Active CIPRO 500 MG ORAL TABLET 1 tablet by mouth twice daily CIPROFLOXACIN HCL 12458184740 No Longer Active Adriana Bender LPN Active AUGMENTIN 875-125 MG ORAL TABLET 1 po BID x 10 days 18/04/06 AMOXICILLIN-POT CLAVULANATE 83727384235 No Longer Active Adriana Bender LPN Active MODAFINIL 200 MG ORAL TABLET Take 1/2 tab po in the am and 1 /2 tab po at noon MODAFINIL 30679479255 Active Bertrand Patel DO Ac tive CYCLOBENZAPRINE HCL 10 MG ORAL TABLET Take 1 tab TID PRN for mus triston pain CYCLOBENZAPRINE HCL 34098140159 No Longer Active Bertrand Patel DO Active TESSALON PERLES 100 MG ORAL CAPSULE 1 tablet by mouth 3 times da juan pablo BENZONATATE 23845472979 No Longer Active Bertrand Patel DO Ac tive NEBULIZER use as directed NEBULIZERS 85222299674 No Longer Active Bertrand Patel DO Active ALBUTEROL SULFATE (2.5 MG/3ML) 0.083% INHALATION NEBUL IZATION SOLUTION one vial per nebulizer every 4-6 hours as needed ALBUTERO L SULFATE 12527272245 No Longer Active Bertrand Patel DO Active SYMBICORT 160-4.5 MCG/ACT INHALATION AEROSOL 2 puffs BID 9 BUDESONIDE-FORMOTEROL FUMARATE 50138579298 No Longer Active Bertrand Patel DO Active PREDNISONE 20 MG ORAL TABLET take 3 tabs daily for 3 d ays, 2 tabs daily for 3 days, 1 tab daily for 3 days, 1/2 tab daily for 3 days 08/02 PREDNISONE 15347412701 No Longer Active Silvia Arnold INVENTORY ADMINISTRATOR Acti ve AZITHROMYCIN 250 MG ORAL TABLET Take 2 tabs po today then 1 tab po daily AZITHROMYCIN 01587944624 No Longer Active Silvia gavin INVENTORY ADMINISTRATOR Active AUGMENTIN 875-125 MG ORAL TABLET 1 po BID x 10 days 20 19/07/13 AMOXICILLIN-POT CLAVULANATE 69450915166 No Longer Active Adriana Bender LPN Active CHEWABLE CALCIUM 500-200-40 MG-UNT-MCG ORAL TABLET CHEWABLE 1 chew tab bid CALCIUM-VITAMIN D-VITAMIN K 46462938732 Active Silvia garlandgypsy INVENTORY ADMINISTRATOR Active EQ COMPLETE MULTIVIT ADULT 50+ ORAL TABLET 1 tab po bid MULTIPLE VITAMINS-MINERALS 18542383001 Active Silvia Arnold INVENTORY ADMINISTRATOR Act jairo HYDROCODONE-ACETAMINOPHEN 7.5-325 MG ORAL TABLET TAKE ONE TAB EVERY 6 HOURS BY MOUTH NEEDED FOR PAIN HYDROCODONE-ACETAMINOPHEN 004 72133698 Active Adele Feldman CLASSIFICATION AND TREATMENT DIRECTOR Active LORTAB 7.5-500 MG ORAL TABLET take one po Q6 hours 201 09/12/01 HYDROCODONE-ACETAMINOPHEN 26955261599 No Longer Active Nirmal Robbins RN Active [facility] MELATONIN 5-10 MG ORAL TABLET EXTENDED RELEASE Jair e one by mouth daily at bedtime MELATONIN-PYRIDOXINE 93701905434 No Longer Acti ve Bertrand Patel DO Active VITAMIN E 200 UNIT ORAL CAPSULE 1 cap po qd VITAM IN E 04008428586 No Longer Active Bertrand Patel DO Active B-12 1000 MCG ORAL CAPSULE 1 tab daily CYANOCOB ALAMIN 39124486111 No Longer Active Bertrand Patel DO Active METFORMIN HCL 500 MG ORAL TABLET 1 bid METFOR MIN HCL 07043679967 No Longer Active Bertrand Patel DO Active FUROSEMIDE 20 MG ORAL TABLET 1 pill by mouth daily if needed for edema FUROSEMIDE 06929631179 No Longer Active Bertrand Patel DO Active PRAVASTATIN SODIUM 20 MG ORAL TABLET 1 tablet by mouth daily at bedtime PRAVASTATIN SODIUM 95285667354 No Longer Active Bertrand Patel DO Active AUGMENTIN 875-125 MG ORAL TABLET 1 pill by mouth twice daily 201 09/10/00 AMOXICILLIN-POT CLAVULANATE 24497911383 No Longer Active Yoli Mercado MD PhD Active LEVAQUIN 500 MG ORAL TABLET 1 pill by mouth daily 2013 LEVOFLOXACIN 46661117794 No Longer Active Yoli Mercado MD PhD Acti ve AMLODIPINE BESYLATE 5 MG ORAL TABLET 1 tablet by mouth daily for blood pressure AMLODIPINE BESYLATE 63013675868 Active Bertrand Patel DO Active MICARDIS 80 MG ORAL TABLET 1 tablet daily for blood pressure 07/30 TELMISARTAN 25157605987 Active Bertrand Patel DO Active MICARDIS HCT 80-12.5 MG ORAL TABLET 1 qd TELMISARTAN-HCTZ 49431439391 No Longer Active Bertrand Patel DO Active CINNAMON ALPHA LIPOIC AC CMPLX CAPSULE by mouth twice a day in AM by mouth twice a day in PM ALPHA LIPOIC FLEL-EA-YOGBHMOH CA PS 43021948504 No Longer Active Bertrand Patel DO Active AZITHROMYCIN 500 MG INTRAVENOUS SOLUTION RECONSTITUTED 1 po q da y AZITHROMYCIN 51126720830 No Longer Active Bertrand Patel DO A ctive CYMBALTA 30 MG ORAL CAPSULE DELAYED RELEASE PARTICLES 1 cap by mouth daily DULOXETINE HCL 96100252970 No Longer Active Bertrand marquez DO Active CYMBALTA 60 MG ORAL CAPSULE DELAYED RELEASE PARTICLES 1 cap by mouth daily DULOXETINE HCL 55834782361 Active Bertrand Patel DO Active WELLBUTRIN 75 MG ORAL TABLET 2 times daily BUPR OPION HCL 93317265175 No Longer Active Bertrand Patel DO Active PROAIR HFA 108 (90 Base) MCG/ACT INHALATION AEROSOL SO LUTION take one to two puffs po Q4-6 hour prn cough and shortness of breath ALBUTEROL SULFATE 86928884087 Active Silvia Arnold APRN Active AZITHROMYCIN 250 MG ORAL TABLET take 2 po today then take 1 po days 2-5 AZITHROMYCIN 99156944240 No Longer Active Adolfo OSORIO Active PERMETHRIN 5 % EXTERNAL CREAM apply neck to toes tonig ht and then rinse off in morning. repeat at 7 days PERMETHRIN 93773312163 No Longer Active Adolfo OSORIO Active AMOXICILLIN 500 MG ORAL CAPSULE 2 po BID x 10 days 201 07/15/00 AMOXICILLIN 30662137758 No Longer Active Yoli Mercado MD PhD Acti ve ALPRAZOLAM 0.5 MG ORAL TABLET 1 tab by mouth tid ALPRAZOLAM 93864298932 Active Nitza Mullins LPN Active INSUPEN ULTRAFIN 31G X 6 MM USE DIRECTED INSULIN PEN NEEDLE 54414702364 No Longer Active Bertrand Patel DO Active TRANSDERM-SCOP (1.5 MG) 1 MG/3DAYS TRANSDERMAL PATCH 7 2 HOUR 1 patch applied behind ear q 3 day SCOPOLAMINE BASE 06407438424 No Lo nger Active Bertrand Patel DO Active MACRODANTIN 100 MG ORAL CAPSULE one p.o. b.i.d. x2 weeks NITROFURANTOIN MACROCRYSTAL 37754301358 No Longer Active Bertrand Patel DO Active MACRODANTIN 100 MG ORAL CAPSULE one p.o. b.i.d. x2 weeks MACRODANTIN 100 MG ORAL CAPSULE 1871604 NITROFURANTOIN MACROCRYSTAL Inactive TRANSDERM-SCOP (1.5 MG) 1 [...] days PERMETHRIN 5 % EXTER NAL CREAM 998211 PERMETHRIN Inactive WELLBUTRIN 75 MG ORAL TABLET 2 times daily WELLBUTRIN 75 MG ORAL TABLET 400883 BUPROPION HCL Inactive CYMBALTA 30 MG ORAL CAPSULE DELAYED RELEASE PARTICLES 1 cap by mouth daily CYMBALTA 30 MG ORAL CAPSULE DELAYED RELE ASE PARTICLES 653456 DULOXETINE HCL Inactive AZITHROMYCIN 500 MG INTRAVENOUS SOLUTION RECONSTITUTED 1 po q da y AZITHROMYCIN 500 MG INTRAVENOUS SOLUTION RECONSTITUTED 59617 598654 AZITHROMYCIN Inactive CINNAMON ALPHA LIPOIC AC CMPLX CAPSULE by mouth twice a day in AM by mouth twice a day in PM CINNAMON ALPHA LIPOIC AC CMPLX CAPSULE ALPHA LIPOIC [id number] CAPS Inactive MICARDIS HCT 80-12.5 MG ORAL TABLET 1 qd 07/30 MICARDIS HCT 80-12.5 MG ORAL TABLET 095138 TELMISARTAN-HCTZ Inactive PRAVASTATIN SODIUM 20 MG ORAL TABLET 1 tablet by mouth daily at bedtime PRAVASTATIN SODIUM 20 MG ORAL TABLET 083815 PRAVASTATIN SODIUM Inactive FUROSEMIDE 20 MG ORAL TABLET 1 pill by mouth daily if needed for edema FUROSEMIDE 20 MG ORAL TABLET 913605 FUROSEMIDE Inactive METFORMIN HCL 500 MG ORAL TABLET 1 bid METFORMIN HCL 500 MG ORAL TABLET 364495 METFORMIN HCL Inactive B-12 1000 MCG ORAL CAPSULE 1 tab daily B -12 1000 MCG ORAL CAPSULE CYANOCOBALAMIN Inactive VITAMIN E 200 UNIT ORAL CAPSULE 1 cap po qd 1 VITAMIN E 200 UNIT ORAL CAPSULE 1099078 VITAMIN E Inactive [facility] MELATONIN 5-10 MG ORAL TABLET EXTENDED RELEASE Jair e one by mouth daily at bedtime [facility] MELATONIN 5-10 M G ORAL TABLET EXTENDED RELEASE MELATONIN-PYRIDOXINE Inactive LORTAB 7.5-500 MG ORAL TABLET take one po Q6 hours 201 09/12/01 LORTAB 7.5-500 MG ORAL TABLET 703402 HYDROCODONE-ACETAMINOPHEN Inactive AZITHROMYCIN 250 MG ORAL TABLET Take 2 tabs po today then 1 tab po daily AZITHROMYCIN 250 MG ORAL TABLET 746101 AZITHROMY BERNARDO Inactive SYMBICORT 160-4.5 MCG/ACT INHALATION AEROSOL 2 puffs BID 9 SYMBICORT 160-4.5 MCG/ACT INHALATION AEROSOL BUDESONIDE-FORM OTEROL FUMARATE Inactive ALBUTEROL SULFATE (2.5 MG/3ML) 0.083% INHALATION NEBUL IZATION SOLUTION one vial per nebulizer every 4-6 hours as needed ALBUTEROL SULFATE (2.5 MG/3ML) 0.083% INHALATION NEBULIZATION SOLUTION 777423 ALBUTER OL SULFATE Inactive NEBULIZER use as directed NEBULIZER NEBULI ZERS Inactive TESSALON PERLES 100 MG ORAL CAPSULE 1 tablet by mouth 3 times da juan pablo TESSALON PERLES 100 MG ORAL CAPSULE 253675 BENZONATATE Inactive CYCLOBENZAPRINE HCL 10 MG ORAL TABLET Take 1 tab TID PRN for mus triston pain CYCLOBENZAPRINE HCL 10 MG ORAL TABLET 248145 CYCLOBENZA ANUJA HCL Inactive AUGMENTIN 875-125 MG ORAL TABLET 1 po BID x 10 days 20 18/04/06 AUGMENTIN 875-125 MG ORAL TABLET 665226 AMOXICILLIN-POT CLAVULANATE Inactive BACTROBAN 2 % EXTERNAL CREAM Apply to affected area BID for up to 10 days BACTROBAN 2 % EXTERNAL CREAM 121993 MUPIROCIN CA LCIUM Inactive VITAMIN D3 20573 UNIT ORAL CAPSULE 1 pill Week x 4 mo nths for vitamin D deficiency/osteoporosis VITAMIN D3 17027 UNIT ORAL CAPSULE CHOLECALCIFEROL Inactive BENZONATATE 200 MG ORAL CAPSULE 1 three times a day as neede d for cough BENZONATATE 200 MG ORAL CAPSULE 095341 BENZONATA TE Inactive ZITHROMAX Z-MARTIN 250 MG ORAL TABLET 2 today and then 1 daily for 4 days ZITHROMAX Z-MARTIN 250 MG ORAL TABLET 319537 AZITHR OMYCIN Inactive ADDERALL 10 MG ORAL TABLET 1 tab twice daily 2 ADDERALL 10 MG ORAL TABLET 608044 AMPHETAMINE-DEXTROAMPHETAMINE Inactive AMOXICILLIN 500 MG ORAL CAPSULE 2 po BID x 10 days 201 07/15/00 AMOXICILLIN 500 MG ORAL CAPSULE 901566 AMOXICILLIN Inactive AZITHROMYCIN 250 MG ORAL TABLET take 2 po today then take 1 po days 2-5 AZITHROMYCIN 250 MG ORAL TABLET 115040 AZITHROMY BERNARDO Inactive LEVAQUIN 500 MG ORAL TABLET 1 pill by mouth daily 2013 LEVAQUIN 500 MG ORAL TABLET 750243 LEVOFLOXACIN Inactive AUGMENTIN 875-125 MG ORAL TABLET 1 pill by mouth twice daily 201 09/10/00 AUGMENTIN 875-125 MG ORAL TABLET 443308 AMOXICILLIN-POT CLAVULANATE Inactive AUGMENTIN 875-125 MG ORAL TABLET 1 po BID x 10 days 19/07/13 AUGMENTIN 875-125 MG ORAL TABLET 054353 AMOXICILLIN-POT CLAVULANATE Inactive PREDNISONE 20 MG ORAL TABLET take 3 tabs daily for 3 d ays, 2 tabs daily for 3 days, 1 tab daily for 3 days, 1/2 tab daily for 3 days 08/02 PREDNISONE 20 MG ORAL TABLET 648030 PREDNISONE Inactive CIPRO 500 MG ORAL TABLET 1 tablet by mouth twice daily CIPRO 500 MG ORAL TABLET 884099 CIPROFLOXACIN HCL Inactive Vital Signs Date Name [...] HGBA1C - Chemistry sodium, serum 143 mmol/L 008-327 9865/01/02 carbon dioxide, venous blood 31.7 mmol/L 21.0-32 [...] 0-19 Encounters Code Encounter Date Provider Facility CPT-49768 Level 4 Est. Patient 15:33:35 BLOOD TYPER Bertrand marquez [facility] CPT-86890 Level 4 Est. Patient 12:31:54 CDT Bertrand marquez [facility] CPT-37463 Level 3 Est. Patient 11:27:00 BLOOD TYPER Ike Deluna MD [facility] CPT-61158 Level 3 Est. Patient 08:50:57 BLOOD TYPER Dangelo INVENTORY ADMINISTRATOR [facility] CPT-54806 Level 3 Est. Patient 10:04:13 CDT Bertrand marquez [facility] CPT-46833 Level 4 Est. Patient 16:02:10 BLOOD TYPER Dangelo [facility] CPT-17440 Level 3 Est. Patient 13:04:54 BLOOD TYPER Dangelo [facility]-23295 Level 3 Est. Patient 12:56:37 CDT Bertrand marquez [facility] CPT-07351 Level 3 Est. Patient 19:12:03 CDT Yoli tolbert MD PhD [facility] CPT-73651 Level 3 Est. Patient 14:36:01 CDT Yoli tolbert MD PhD [facility] CPT-90055 Level 2 Est. Patient 08:00:22 CDT Jcarlos dc MD [facility]-52353 Level 3 Est. Patient 19:06:55 CDT Bertrand marquez [facility] CPT-25508 Level 3 Est. Patient 10:08:23 BLOOD TYPER Bertrand marquez [facility] CPT-02859 Level 3 Est. Patient 16:37:54 BLOOD TYPER Bertrand marquez [facility] CPT-86663 Level 3 Est. Patient 11:31:59 BLOOD TYPER Bertrand Jacklyn Lindsay marquez [facility] CPT-20434 Level 3 Est. Patient 10:20:08 CDT Adolfo villasenor [facility] CPT-59227 Level 3 Est. Patient 13:45:20 CDT Sanket buckley [facility] CPT-28748 Level 3 Est. Patient 12:51:06 CDT Adolfo villasenor [facility] CPT-04402 Level 3 Est. Patient 11:22:51 BLOOD TYPER Yoli tolbert MD PhD [facility] CPT-60089 Level 3 Est. Patient 13:33:19 CDT Bertrand marquez [facility] Procedures Code Procedure Name Date Entry Date Standard Desc ription CPT-49094 Wound Culture - LAB USE ONLY 15:45:25 CDT 2 CPT-51376 Venipuncture Draw Fee 10:23:01 CDT CPT-J0696 Rocephin 1000 mg (Ceftriaxone) 16:20:30 BLOOD TYPER CPT-48451 Abx/Therapy Injection 16:20:29 BLOOD TYPER CPT-J0696 Rocephin 1gm Inj Solr 15:51:59 BLOOD TYPER CPT-30079 Chest 2V Frontal and Lat 15:20:28 BLOOD TYPER 07/22 CPT-13007 Breathing Tx 14:51:55 BLOOD TYPER CPT-64671 Breathing Tx 09:57:16 BLOOD TYPER CPT-21143 Knee comp 4/> V 11:58:06 BLOOD TYPER
--- OUTSIDE RECORDS SUMMARY | 2019-11-13 10:07 | XMS REPORT | Clinical Summary ---
Author Author Admin, Enrique Adamson Organization [employer] Address Unknown Phone Unavailable Allergies, Adverse Reactions, [...] Cough SINUSITIS, ACUTE 461.9 Active Silvia PARISI barrel straightener sinusitis, unspecified Fatigue 780.79 Active Silvia Arnold APRN Other malaise and fatigue Bronchitis acute with bronchospasm 466.0 Active 2 Silvia Arnold APRN Acute bronchitis HEALTH SCREENING ICD-V70.0 Inactive Yoli sabillon MD [...] Mercado MD PhD Pharyngitis-Acute ICD-462 Inactive Bertrand Conley ilya DO Polyuria ICD-788.42 Inactive Yoli Mercado MD P hD Foreign body, ear ICD-931 Inactive Yoli salazar MD PhD Medication List Medication Instructions Start Date Stop Date Generic Name NDC Status Provider Patient Instruction NEBULIZER MISC use as directed NEBULIZERS 00602743393 Active Silvia Arnold APRN Active AZITHROMYCIN 250 MG ORAL TABS Take 2 tabs po today then 1 ta b po daily AZITHROMYCIN 41730515756 No Longer Active Silvia gavin APRN Active AUGMENTIN 875-125 MG TAB 1 po BID x 10 days AMOXICILLIN- POT CLAVULANATE 99043118093 No Longer Active Adriana Bender LPN Active TESSALON PERLES 100 MG CAP 1 tablet by mouth 3 times daily BENZONATATE 63919185573 Active Silvia Arnold APRN Active CHEWABLE CALCIUM 500-200-40 MG-UNT-MCG ORAL CHEW 1 chew tab bid 201 11/03/03 CALCIUM-VITAMIN D-VITAMIN K 27811000973 Active Silvia Arnold APRN Active EQ COMPLETE MULTIVIT ADULT 50+ ORAL TABS 1 tab po bid MULTIPLE VITAMINS-MINERALS 90063991865 Active Silvia Arnold APRN Act jairo HYDROCODONE-ACETAMINOPHEN 7.5-325 MG TABS TAKE ONE TAB EVERY 6 HOURS BY MOUTH NEEDED FOR PAIN HYDROCODONE-ACETAMINOPHEN 43793343457 Acti ve Bertrand Patel DO Active LORTAB 7.5-500 MG TABS take one po Q6 hours HYDROCODONE-ACETAMINOPHEN No Longer Active Nirmal Robbins RN Active [facility] MELATONIN 5-10 MG CR-TABS Take one by mouth daily at bedtime MELATONIN-PYRIDOXINE 79738677790 No Longer Active Bertrand Patel DO Active VITAMIN E 200 UNIT CAPS 1 cap po qd VITAMIN E 316 89153942 No Longer Active Bertrand Patel DO Active B-12 1000 MCG CAPS 1 tab daily CYANOCOBALAMIN 31 180165020 No Longer Active Bertrand Patel DO Active METFORMIN HCL 500 MG TABS 1 bid METFORMIN HCL 34510941952 No Longer Active Bertrnad Patel DO Active FUROSEMIDE 20 MG TABS 1 pill by mouth daily if needed for edema FUROSEMIDE 81297890933 No Longer Active Bertrand Patel DO Act jairo PRAVASTATIN SODIUM 20 MG TABS 1 tablet by mouth daily at bedtime PRAVASTATIN SODIUM 95045938895 No Longer Active Bertrand Patel DO Active AUGMENTIN 875-125 MG TABS 1 pill by mouth twice daily AMOXICILLIN-POT CLAVULANATE 30160265214 No Longer Active Yoli Mercado MD PhD Active LEVAQUIN 500 MG TABS 1 pill by mouth daily LEVO FLOXACIN 82254599118 No Longer Active Yoli Mercado MD PhD Active CYCLOBENZAPRINE HCL 10 MG TABS Take 1 tab TID PRN for muscle pain CYCLOBENZAPRINE HCL 01200805424 Active Brittni Fernándezum [employer] SOCIAL WORKER Active AMLODIPINE BESYLATE 5 MG TABS 1 tablet by mouth daily for bl ood pressure AMLODIPINE BESYLATE 15022071109 Active Nitza Dorman PT,RMA Active MICARDIS 80 MG TABS 1 tablet daily for blood pressure TELMISARTAN 65804954980 Active Nitza Mullins RPT,RMA Active MICARDIS HCT 80-12.5 MG TABS 1 qd TELMISARTA N-HCTZ 32467823709 No Longer Active Bertrand Patel DO Active CINNAMON ALPHA LIPOIC AC CMPLX CAPS by mouth twice a d ay in AM by mouth twice a day in PM ALPHA LIPOIC [id number] CAPS 980383 65635 No Longer Active Bertrand Patel DO Active AZITHROMYCIN 500 MG SOLR 1 po q day AZITHROMYCI N 40936930639 No Longer Active Bertrand Patel DO Active CYMBALTA 30 MG CPEP 1 cap by mouth daily DULOXE CATHI HCL 52875239498 No Longer Active Bertrand Patel DO Active CYMBALTA 60 MG CPEP 1 cap by mouth daily DULOXE CATHI HCL 34761940962 Active Nitza Mullins RPT,RMA Active WELLBUTRIN 75 MG TABS 2 times daily BUPROPION H CL 94334436137 No Longer Active Bertrand Patel DO Active PROAIR HFA 108 (90 BASE) MCG/ACT AERS take one to two puffs po Q4-6 hour prn cough and shortness of breath ALBUTEROL SULFATE 1857165534 2 Active Silvia Arnold MONUMENT INSTALLER Active AZITHROMYCIN 250 MG TABS take 2 po today then take 1 po days 2-5 AZITHROMYCIN 06726608591 No Longer Active Adolfo OSORIO Active PERMETHRIN 5 % CREA apply neck to toes tonight a nd then rinse off in morning. repeat at 7 days PERMETHRIN 01810448938 No Longer Active Adolfo OSORIO Active AMOXICILLIN 500 MG CAPS 2 po BID x 10 days AMOX ICILLIN 59240249615 No Longer Active Yoli Mercado MD PhD Active ALPRAZOLAM 0.5 MG TAB 1 tab by mouth tid ALPRAZOL AM 41606389612 Active Bertrand Patel DO Active INSUPEN ULTRAFIN 31G X 6 MM MISC USE DIRECTED 03/04 INSULIN PEN NEEDLE 85799266460 No Longer Active Bertrand W Jorge DO Active TRANSDERM-SCOP 1.5 MG PT72 1 patch applied behind ear q 3 day 20 04/13/28 SCOPOLAMINE BASE 39054319245 No Longer Active Bertrand Patel DO Active MACRODANTIN 100 MG CAPS one p.o. b.i.d. x2 weeks 03/04 NITROFURANTOIN MACROCRYSTAL 70937271469 No Longer Active Bertrand Patel DO Active MACRODANTIN 100 MG CAPS one p.o. b.i.d. x2 weeks 03/04 MACRODANTIN 100 MG CAPS 0752090 NITROFURANTOIN MACROCRYSTAL Inactive TRANSDERM-SCOP 1.5 MG PT72 [...] at 7 days PERMETHRIN 5 % CREA 462984 PERMETHRIN Inactive WELLBUTRIN 75 MG TABS 2 times daily WELLBUTRIN 75 MG TABS 165699 BUPROPION HCL Inactive CYMBALTA 30 MG CPEP 1 cap by mouth daily CYMBALTA 30 MG CPEP 816574 DULOXETINE HCL Inactive AZITHROMYCIN 500 MG SOLR 1 po q day ALTA THROMYCIN 500 MG SOLR 61817418722 AZITHROMYCIN Inactive CINNAMON ALPHA LIPOIC AC CMPLX CAPS by mouth twice a d ay in AM by mouth twice a day in PM CINNAMON ALPHA LIPOIC AC CMPLX CAPS ALPHA LIPOIC [id number] CAPS Inactive MICARDIS HCT 80-12.5 MG TABS 1 qd MICARDI S HCT 80-12.5 MG TABS 451779 TELMISARTAN-HCTZ Inactive PRAVASTATIN SODIUM 20 MG TABS 1 tablet by mouth daily at bedtime PRAVASTATIN SODIUM 20 MG TABS 026987 PRAVASTATIN SODIUM Inactive FUROSEMIDE 20 MG TABS 1 pill by mouth daily if needed for edema FUROSEMIDE 20 MG TABS 184527 FUROSEMIDE Inactive METFORMIN HCL 500 MG TABS 1 bid METFORMIN HCL 500 MG TABS 845845 METFORMIN HCL Inactive B-12 1000 MCG CAPS 1 tab daily B-12 1000 MCG CAP S CYANOCOBALAMIN Inactive VITAMIN E 200 UNIT CAPS 1 cap po qd VITAMIN E 2 00 UNIT CAPS 1468694 VITAMIN E Inactive [facility] MELATONIN 5-10 MG CR-TABS Take one by mouth daily at bedtime [facility] MELATONIN 5-10 MG CR-TABS MELATONIN-PYRIDOXI NE Inactive LORTAB 7.5-500 MG TABS take one po Q6 hours LORTAB 7.5-500 MG TABS HYDROCODONE-ACETAMINOPHEN Inactive AZITHROMYCIN 250 MG ORAL TABS Take 2 tabs po today then 1 ta b po daily AZITHROMYCIN 250 MG ORAL TABS 3703694 AZITHROMYCI N Inactive AMOXICILLIN 500 MG CAPS 2 po BID x 10 days AMOXICILLIN 500 MG CAPS 560962 AMOXICILLIN Inactive AZITHROMYCIN 250 MG TABS take 2 po today then take 1 po days 2-5 AZITHROMYCIN 250 MG TABS 4456969 AZITHROMYCIN Inactiv e LEVAQUIN 500 MG TABS 1 pill by mouth daily LEVAQUIN 500 MG TABS 127458 LEVOFLOXACIN Inactive AUGMENTIN 875-125 MG TABS 1 pill by mouth twice daily AUGMENTIN 875-125 MG TABS 265950 AMOXICILLIN-POT CLAVULANATE Inacti ve AUGMENTIN 875-125 MG TAB 1 po BID x 10 days AUGMENTIN 875- 125 MG TAB 524923 AMOXICILLIN-POT CLAVULANATE Inactive Vital Signs Date Name Value Unit [...] Negative;Positive Encounters Code Encounter Date Provider Facility CPT-38602 Level 3 Est. Patient 13:04:54 STAMP MAKER Dangelo BARAJAS [facility] CPT-16188 Level 3 Est. Patient 12:56:37 CDT Bertrand marquez [facility] CPT-24663 Level 3 Est. Patient 19:12:03 CDT Yoli tolbert MD PhD [facility] CPT-26256 Level 3 Est. Patient 14:36:01 CDT Yoli tolbert MD [facility] CPT-36731 Level 2 Est. Patient 08:00:22 CDT Jcarlos dc MD [facility]-60954 Level 3 Est. Patient 19:06:55 CDT Bertrand marquez [facility] CPT-45429 Level 3 Est. Patient 10:08:23 STAMP MAKER Bertrand marquez [facility] CPT-14884 Level 3 Est. Patient 16:37:54 STAMP MAKER Bertrand marquez [facility] CPT-09362 Level 3 Est. Patient 11:31:59 STAMP MAKER Bertrand marquez [facility] CPT-67852 Level 3 Est. Patient 10:20:08 CDT Adolfo villasenor [facility] CPT-56027 Level 3 Est. Patient 13:45:20 CDT Sanket buckley [facility] CPT-62124 Level 3 Est. Patient 12:51:06 CDT Adolfo villasenor [facility] CPT-11628 Level 3 Est. Patient 11:22:51 STAMP MAKER Yoli tolbert MD PhD [facility] CPT-52656 Level 3 Est. Patient 13:33:19 CDT Bertrand Sabillon ee DO [facility] Procedures Code Procedure Name Date Entry Date Standard Desc ription CPT-27313 Chest 2V Frontal and Lat 15:20:28 STAMP MAKER 07/22 CPT-28925 Breathing Tx 14:51:55 STAMP MAKER CPT-02922 Breathing Tx 09:57:16 STAMP MAKER CPT-41069 Knee comp 4/> V 11:58:06 STAMP MAKER
--- OUTSIDE RECORDS SUMMARY | 2019-11-13 10:07 | XMS REPORT | Clinical Summary ---
Author Author Admin, Enrique Adamson Organization [employer] Address Unknown Phone Unavailable Allergies, Adverse Reactions, [...] lower leg Knee pain, left 719.46 Active Berrtand Patel DO Pain in joint involving lower [...] Mercado MD P hD FH DIABETES ICD-V18.0 Stefanie Mercado MD PhD 20 14/02/29 Foreign body, ear ICD-931 Inactive Yoli salazar MD PhD SINUSITIS, ACUTE ICD-461.9 Inactive Ike lange MD Cellulitis, leg, right ICD-682.6 Inactive Yuki Deluna MD Fatigue ICD-780.79 Inactive Ike Deluna MD 201 12/01/06 Medication List Medication Instructions Start Date Stop Date Generic Name NDC Status Provider Patient Instruction VITAMIN D3 64628 UNIT CAPS 1 pill Week x 4 months for vitamin D deficiency/osteoporosis CHOLECALCIFEROL 46147955414 Active Darlyn Monzon Active BENZONATATE 200 MG ORAL CAPS 1 three times a day as needed for c ough BENZONATATE 93265068499 Active Ike Deluna MD Acti ve ZITHROMAX Z-MARTIN 250 MG TABS 2 today and then 1 daily for 4 days 201 12/01/06 AZITHROMYCIN 00111829576 Active Ike Deluna MD Active ADDERALL 10 MG ORAL TABS 1 tab twice daily AMPHETAMINE-DEXTROAMPHETAMINE 52005037796 Active Ike Deluna MD Active BACTROBAN 2 % CREAM Apply to affected area BID for up to 10 days MUPIROCIN CALCIUM 67504232118 No Longer Active Ike Deluna MD Active CIPRO 500 MG TAB 1 tablet by mouth twice daily CIPROFLOXACIN HCL 36047102402 No Longer Active Adriana Bender LPN Active AUGMENTIN 875-125 MG TAB 1 po BID x 10 days AMOXICILLIN- POT CLAVULANATE 15725117688 No Longer Active Adriana Bender LPN Active MODAFINIL 200 MG ORAL TABS Take 1/2 tab po in the am and 1/2 tab po at noon MODAFINIL 98630792881 Active Darlyn Monzon A ctive CYCLOBENZAPRINE HCL 10 MG TABS Take 1 tab TID PRN for muscle pain CYCLOBENZAPRINE HCL 66033328802 No Longer Active Bertrand Patel DO Ac tive TESSALON PERLES 100 MG CAP 1 tablet by mouth 3 times daily 07/07 BENZONATATE 80856055761 No Longer Active Bertrand Patel DO Ac tive NEBULIZER MISC use as directed NEBULIZERS 061481 27528 No Longer Active Bertrand Patel DO Active ALBUTEROL SULFATE 0.083 % NEBU SOLN one vial per nebul izer every 4-6 hours as needed ALBUTEROL SULFATE 73949808632 No Longer Active Bertrand Patel DO Active SYMBICORT 160-4.5 MCG/ACT AERO 2 puffs BID BUDESONIDE- FORMOTEROL FUMARATE 99705013676 No Longer Active Bertrand Patel DO Ac tive PREDNISONE 20 MG TAB take 3 tabs daily for 3 days , 2 tabs daily for 3 days, 1 tab daily for 3 days, 1/2 tab daily for 3 days P REDNISONE 32167052978 No Longer Active Silvia Arnold APRN Active AZITHROMYCIN 250 MG ORAL TABS Take 2 tabs po today then 1 ta b po daily AZITHROMYCIN 18785942406 No Longer Active Silvia Jorge leslye TOVARN Active AUGMENTIN 875-125 MG TAB 1 po BID x 10 days AMOXICILLIN- POT CLAVULANATE 29036000707 No Longer Active Adriana Bender LPN Active CHEWABLE CALCIUM 500-200-40 MG-UNT-MCG ORAL CHEW 1 chew tab bid 201 11/03/03 CALCIUM-VITAMIN D-VITAMIN K 40795380904 Active Silvia Arnold APRN Active EQ COMPLETE MULTIVIT ADULT 50+ ORAL TABS 1 tab po bid MULTIPLE VITAMINS-MINERALS 11511406746 Active Silvia Arnold APRN Act jairo HYDROCODONE-ACETAMINOPHEN 7.5-325 MG TABS TAKE ONE TAB EVERY 6 HOURS BY MOUTH NEEDED FOR PAIN HYDROCODONE-ACETAMINOPHEN 44947115469 Acti ve Bertrand Patel DO Active LORTAB 7.5-500 MG TABS take one po Q6 hours HYDROCODONE-ACETAMINOPHEN No Longer Active Nirmal Robbins RN Active [facility] MELATONIN 5-10 MG CR-TABS Take one by mouth daily at bedtime MELATONIN-PYRIDOXINE 96757784946 No Longer Active Bertrand Patel DO Active VITAMIN E 200 UNIT CAPS 1 cap po qd VITAMIN E 316 44479347 No Longer Active Bertrand Patel DO Active B-12 1000 MCG CAPS 1 tab daily CYANOCOBALAMIN 31 792143664 No Longer Active Bertrand Patel DO Active METFORMIN HCL 500 MG TABS 1 bid METFORMIN HCL 29703887010 No Longer Active Bertrand Patel DO Active FUROSEMIDE 20 MG TABS 1 pill by mouth daily if needed for edema FUROSEMIDE 79547144160 No Longer Active Bertrand Patel DO Act jairo PRAVASTATIN SODIUM 20 MG TABS 1 tablet by mouth daily at bedtime PRAVASTATIN SODIUM 66940727830 No Longer Active Bertrand Patel DO Active AUGMENTIN 875-125 MG TABS 1 pill by mouth twice daily AMOXICILLIN-POT CLAVULANATE 61438124179 No Longer Active Yoli Mercado MD PhD Active LEVAQUIN 500 MG TABS 1 pill by mouth daily LEVO FLOXACIN 60001959600 No Longer Active Yoli Mercado MD PhD Active AMLODIPINE BESYLATE 5 MG TABS 1 tablet by mouth daily for bl ood pressure AMLODIPINE BESYLATE 35061400874 Active Darlyn Monzon Active MICARDIS 80 MG TABS 1 tablet daily for blood pressure TELMISARTAN 04922807758 Active Darlyn Monzon Active MICARDIS HCT 80-12.5 MG TABS 1 qd TELMISARTA N-HCTZ 19900384808 No Longer Active Bertrand Patel DO Active CINNAMON ALPHA LIPOIC AC CMPLX CAPS by mouth twice a d ay in AM by mouth twice a day in PM ALPHA LIPOIC DEPA-GI-OUOBTCIW CAPS 803712 43984 No Longer Active Bertrand Patel DO Active AZITHROMYCIN 500 MG SOLR 1 po q day AZITHROMYCI N 16128083493 No Longer Active Bertrand Patel DO Active CYMBALTA 30 MG CPEP 1 cap by mouth daily DULOXE CATHI HCL 09797475957 No Longer Active Bertrand Patel DO Active CYMBALTA 60 MG CPEP 1 cap by mouth daily DULOXE CATHI HCL 11722849487 Active Darlyn Monzon Active WELLBUTRIN 75 MG TABS 2 times daily BUPROPION H CL 25968615419 No Longer Active Bertrand W Jorge DO Active PROAIR HFA 108 (90 BASE) MCG/ACT AERS take one to two puffs po Q4-6 hour prn cough and shortness of breath ALBUTEROL SULFATE 2123159681 2 Active Silvia Arnold [place] Active AZITHROMYCIN 250 MG TABS take 2 po today then take 1 po days 2-5 AZITHROMYCIN 58763276007 No Longer Active Adolfo OSORIO Active PERMETHRIN 5 % CREA apply neck to toes tonight a nd then rinse off in morning. repeat at 7 days PERMETHRIN 27601537066 No Longer Active Adolfo OSORIO Active AMOXICILLIN 500 MG CAPS 2 po BID x 10 days AMOX ICILLIN 18034889488 No Longer Active Yoli Mercado MD PhD Active ALPRAZOLAM 0.5 MG TAB 1 tab by mouth tid ALPRAZOL AM 24754675355 Active Nitza Mullins SEROLOGIST Active INSUPEN ULTRAFIN 31G X 6 MM MISC USE DIRECTED 03/04 INSULIN PEN NEEDLE 14112585378 No Longer Active Bertrand Patel DO Active TRANSDERM-SCOP 1.5 MG PT72 1 patch applied behind ear q 3 day 20 04/13/28 SCOPOLAMINE BASE 16694456389 No Longer Active Bertrand Patel DO Active MACRODANTIN 100 MG CAPS one p.o. b.i.d. x2 weeks 03/04 NITROFURANTOIN MACROCRYSTAL 09742550422 No Longer Active Bertrand Patel DO Active MACRODANTIN 100 MG CAPS one p.o. b.i.d. x2 weeks 03/04 MACRODANTIN 100 MG CAPS 9119194 NITROFURANTOIN MACROCRYSTAL Inactive TRANSDERM-SCOP 1.5 MG PT72 [...] at 7 days PERMETHRIN 5 % CREA 201077 PERMETHRIN Inactive WELLBUTRIN 75 MG TABS 2 times daily WELLBUTRIN 75 MG TABS BUPROPION HCL Inactive CYMBALTA 30 MG CPEP 1 cap by mouth daily CYMBALTA 30 MG CPEP 628489 DULOXETINE HCL Inactive AZITHROMYCIN 500 MG SOLR 1 po q day ALTA THROMYCIN 500 MG SOLR 57878501985 AZITHROMYCIN Inactive CINNAMON ALPHA LIPOIC AC CMPLX CAPS by mouth twice a d ay in AM by mouth twice a day in PM CINNAMON ALPHA LIPOIC AC CMPLX CAPS ALPHA LIPOIC [id number] CAPS Inactive MICARDIS HCT 80-12.5 MG TABS 1 qd MICARDI S HCT 80-12.5 MG TABS 987261 TELMISARTAN-HCTZ Inactive PRAVASTATIN SODIUM 20 MG TABS 1 tablet by mouth daily at bedtime PRAVASTATIN SODIUM 20 MG TABS 525732 PRAVASTATIN SODIUM Inactive FUROSEMIDE 20 MG TABS 1 pill by mouth daily if needed for edema FUROSEMIDE 20 MG TABS 566493 FUROSEMIDE Inactive METFORMIN HCL 500 MG TABS 1 bid METFORMIN HCL 500 MG TABS 141726 METFORMIN HCL Inactive B-12 1000 MCG CAPS 1 tab daily B-12 1000 MCG CAP S CYANOCOBALAMIN Inactive VITAMIN E 200 UNIT CAPS 1 cap po qd VITAMIN E 2 00 UNIT CAPS 8772265 VITAMIN E Inactive [facility] MELATONIN 5-10 MG CR-TABS Take one by mouth daily at bedtime [facility] MELATONIN 5-10 MG CR-TABS MELATONIN-PYRIDOXI NE Inactive LORTAB 7.5-500 MG TABS take one po Q6 hours LORTAB 7.5-500 MG TABS HYDROCODONE-ACETAMINOPHEN Inactive AZITHROMYCIN 250 MG ORAL TABS Take 2 tabs po today then 1 ta b po daily AZITHROMYCIN 250 MG ORAL TABS 6144225 AZITHROMYCI N Inactive SYMBICORT 160-4.5 MCG/ACT AERO 2 puffs BID SYMBICORT 160- 4.5 MCG/ACT AERO BUDESONIDE-FORMOTEROL FUMARATE Inactive ALBUTEROL SULFATE 0.083 % NEBU SOLN one vial per nebul izer every 4-6 hours as needed ALBUTEROL SULFATE 0.083 % NEBU SOLN 13081 8 ALBUTEROL SULFATE Inactive NEBULIZER MISC use as directed NEBULIZER MISC NEBULIZERS Inactive TESSALON PERLES 100 MG CAP 1 tablet by mouth 3 times daily 07/07 TESSALON PERLES 100 MG CAP 555008 BENZONATATE Inact jairo CYCLOBENZAPRINE HCL 10 MG TABS Take 1 tab TID PRN for muscle pain CYCLOBENZAPRINE HCL 10 MG TABS 608978 CYCLOBENZAPRINE HCL Inactive AUGMENTIN 875-125 MG TAB 1 po BID x 10 days AUGMENTIN 875- 125 MG TAB 624649 AMOXICILLIN-POT CLAVULANATE Inactive BACTROBAN 2 % CREAM Apply to affected area BID for up to 10 days BACTROBAN 2 % CREAM 388429 MUPIROCIN CALCIUM Inactive AMOXICILLIN 500 MG CAPS 2 po BID x 10 days AMOXICILLIN 500 MG CAPS 831117 AMOXICILLIN Inactive AZITHROMYCIN 250 MG TABS take 2 po today then take 1 po days 2-5 AZITHROMYCIN 250 MG TABS 1394076 AZITHROMYCIN Inactiv e LEVAQUIN 500 MG TABS 1 pill by mouth daily LEVAQUIN 500 MG TABS 019406 LEVOFLOXACIN Inactive AUGMENTIN 875-125 MG TABS 1 pill by mouth twice daily AUGMENTIN 875-125 MG TABS 959460 AMOXICILLIN-POT CLAVULANATE Inacti ve AUGMENTIN 875-125 MG TAB 1 po BID x 10 days AUGMENTIN 875- 125 MG TAB 576627 AMOXICILLIN-POT CLAVULANATE Inactive PREDNISONE 20 MG TAB take 3 tabs daily for 3 days , 2 tabs daily for 3 days, 1 tab daily for 3 days, 1/2 tab daily for 3 days PREDNISONE 20 MG TAB 734406 PREDNISONE Inactive CIPRO 500 MG TAB 1 tablet by mouth twice daily CIPRO 500 MG TAB 423064 CIPROFLOXACIN HCL Inactive Vital Signs Date Name [...] 4.3-6.0 Encounters Code Encounter Date Provider Facility CPT-45539 Level 4 Est. Patient 12:31:54 CDT Bertrand marquez [facility] CPT-47462 Level 3 Est. Patient 11:27:00 WEB CONTENT MANAGER Ike Deluna MD [facility]-69105 Level 3 Est. Patient 08:50:57 WEB CONTENT MANAGER Dangelo BARAJAS [facility] CPT-24250 Level 3 Est. Patient 10:04:13 CDT Bertrand marquez [facility]-22703 Level 4 Est. Patient 16:02:10 WEB CONTENT MANAGER Dangelo [place] [facility] CPT-77861 Level 3 Est. Patient 13:04:54 WEB CONTENT MANAGER Dangelo [place] [facility]-52708 Level 3 Est. Patient 12:56:37 CDT Bertrand marquez [facility] CPT-32834 Level 3 Est. Patient 19:12:03 CDT Yoli tolbert MD PhD [facility] CPT-64096 Level 3 Est. Patient 14:36:01 CDT Yoli tolbert MD [facility]-04713 Level 2 Est. Patient 08:00:22 CDT Jcarlos dc MD [facility]-84340 Level 3 Est. Patient 19:06:55 CDT Bertrand marquez [facility] CPT-06753 Level 3 Est. Patient 10:08:23 WEB CONTENT MANAGER Bertrand marquez [facility]-85561 Level 3 Est. Patient 16:37:54 WEB CONTENT MANAGER Bertrand marquez [facility] CPT-20347 Level 3 Est. Patient 11:31:59 WEB CONTENT MANAGER Bertrand amrquez [facility] CPT-95661 Level 3 Est. Patient 10:20:08 CDT Adolfo OSORIO [facility]-76632 Level 3 Est. Patient 13:45:20 CDT Sanket Ankit buckley [facility] CPT-92369 Level 3 Est. Patient 12:51:06 CDT Adolfo Monroyridge halljacklyn [facility] CPT-73223 Level 3 Est. Patient 11:22:51 WEB CONTENT MANAGER Yoil tolbert MD PhD [facility] CPT-44659 Level 3 Est. Patient 13:33:19 CDT Bertrand Sabillon ee DO [facility] Procedures Code Procedure Name Date Entry Date Standard Desc ription CPT-87801 Wound Culture - LAB USE ONLY 15:45:25 CDT 2 CPT-00348 Venipuncture Draw Fee 10:23:01 CDT CPT-J0696 Rocephin 1000 mg (Ceftriaxone) 16:20:30 WEB CONTENT MANAGER CPT-02049 Abx/Therapy Injection 16:20:29 WEB CONTENT MANAGER CPT-J0696 Rocephin 1gm Inj Solr 15:51:59 WEB CONTENT MANAGER CPT-65970 Chest 2V Frontal and Lat 15:20:28 WEB CONTENT MANAGER 07/22 CPT-61057 Breathing Tx 14:51:55 WEB CONTENT MANAGER CPT-50877 Breathing Tx 09:57:16 WEB CONTENT MANAGER CPT-63752 Knee comp 4/> V 11:58:06 WEB CONTENT MANAGER
--- OUTSIDE RECORDS SUMMARY | 2019-11-13 10:08 | XMS REPORT | Clinical Summary ---
Author Author Admin, Enrique Adamson Organization [employer] Address Unknown Phone Unavailable Allergies, Adverse Reactions, [...] day as needed for c ough BENZONATATE 48709321262 Active Ike Deluna MD Acti ve ZITHROMAX Z-MARTIN 250 MG TABS 2 today and then 1 daily for 4 days 201 12/01/06 AZITHROMYCIN 99350991755 Active Ike Deluna MD Active ADDERALL 10 MG ORAL TABS 1 tab twice daily AMPHETAMINE-DEXTROAMPHETAMINE 18632009121 Active Ike Deluna MD Active BACTROBAN 2 % CREAM Apply to affected area BID for up to 10 days MUPIROCIN CALCIUM 71749536888 No Longer Active Ike Deluna MD Active CIPRO 500 MG TAB 1 tablet by mouth twice daily CIPROFLOXACIN HCL 94871227030 No Longer Active Adriana Bender LPN Active AUGMENTIN 875-125 MG TAB 1 po BID x 10 days AMOXICILLIN- POT CLAVULANATE 98296482170 No Longer Active Adriana Bender LPN Active MODAFINIL 200 MG ORAL TABS Take 1/2 tab po in the am and 1/2 tab po at noon MODAFINIL 23864146023 Active Silvia Arnold APRN Active CYCLOBENZAPRINE HCL 10 MG TABS Take 1 tab TID PRN for muscle pain CYCLOBENZAPRINE HCL 91444007773 No Longer Active Bertrand Patel DO Ac tive TESSALON PERLES 100 MG CAP 1 tablet by mouth 3 times daily 07/07 BENZONATATE 34013075974 No Longer Active Bertrand Patel DO Ac tive NEBULIZER MISC use as directed NEBULIZERS 299765 69290 No Longer Active Bertrand Patel DO Active ALBUTEROL SULFATE 0.083 % NEBU SOLN one vial per nebul izer every 4-6 hours as needed ALBUTEROL SULFATE 71943855016 No Longer Active Bertrand Patel DO Active SYMBICORT 160-4.5 MCG/ACT AERO 2 puffs BID BUDESONIDE- FORMOTEROL FUMARATE 85068169528 No Longer Active Bertrand Patel DO Ac tive PREDNISONE 20 MG TAB take 3 tabs daily for 3 days , 2 tabs daily for 3 days, 1 tab daily for 3 days, 1/2 tab daily for 3 days P REDNISONE 81084597415 No Longer Active Silvia Arnold APRN Active AZITHROMYCIN 250 MG ORAL TABS Take 2 tabs po today then 1 ta b po daily AZITHROMYCIN 63614646472 No Longer Active Silvia gavin 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 AUGMENTIN 875-125 MG TAB 1 po BID x 10 days AMOXICILLIN- POT CLAVULANATE 11695793099 No Longer Active Adriana Bender LPN Active CHEWABLE CALCIUM 500-200-40 MG-UNT-MCG ORAL CHEW 1 chew tab bid 201 11/03/03 CALCIUM-VITAMIN D-VITAMIN K 09595863548 Active Silvia Arnold APRN Active EQ COMPLETE MULTIVIT ADULT 50+ ORAL TABS 1 tab po bid MULTIPLE VITAMINS-MINERALS 53901331171 Active Silvia Arnold APRN Act jairo HYDROCODONE-ACETAMINOPHEN 7.5-325 MG TABS TAKE ONE TAB EVERY 6 HOURS BY MOUTH NEEDED FOR PAIN HYDROCODONE-ACETAMINOPHEN 18944260934 Acti raheel العلي Active LORTAB 7.5-500 MG TABS take one po Q6 hours HYDROCODONE-ACETAMINOPHEN No Longer Active Nirmal Robbins RN Active [facility] MEL[facility] 5-10 MG CR-TABS Take one by mouth daily at bedtime MELATONIN-PYRIDOXINE 70083578999 No Longer Active Bertrand Patel DO Active VITAMIN E 200 UNIT CAPS 1 cap po qd VITAMIN E 316 29502616 No Longer Active Bertrand Patel DO Active B-12 1000 MCG CAPS 1 tab daily CYANOCOBALAMIN 31 602705023 No Longer Active Bertrand Patel DO Active METFORMIN HCL 500 MG TABS 1 bid METFORMIN HCL 85827544283 No Longer Active Bertrand Patel DO Active FUROSEMIDE 20 MG TABS 1 pill by mouth daily if needed for edema FUROSEMIDE 40425367773 No Longer Active Bertrand Patel DO Act jairo PRAVASTATIN SODIUM 20 MG TABS 1 tablet by mouth daily at bedtime PRAVASTATIN SODIUM 41006822635 No Longer Active Bertrand Patel DO Active AUGMENTIN 875-125 MG TABS 1 pill by mouth twice daily AMOXICILLIN-POT CLAVULANATE 18427260370 No Longer Active Yoli Mercado MD PhD Active LEVAQUIN 500 MG TABS 1 pill by mouth daily LEVO FLOXACIN 14806912293 No Longer Active Yloi Mercado MD PhD Active AMLODIPINE BESYLATE 5 MG TABS 1 tablet by mouth daily for bl ood pressure AMLODIPINE BESYLATE 11333096115 Active Keysha Jones MA Active MICARDIS 80 MG TABS 1 tablet daily for blood pressure TELMISARTAN 89096841086 Active Keysha Jones MA Active MICARDIS HCT 80-12.5 MG TABS 1 qd TELMISARTA N-HCTZ 51222128520 No Longer Active Bertrand Patel DO Active CINNAMON ALPHA LIPOIC AC CMPLX CAPS by mouth twice a d ay in AM by mouth twice a day in PM ALPHA LIPOIC [id number] CAPS 732995 53645 No Longer Active Bertrand Patel DO Active AZITHROMYCIN 500 MG SOLR 1 po q day AZITHROMYCI N 89593252688 No Longer Active Bertrand Patel DO Active CYMBALTA 30 MG CPEP 1 cap by mouth daily DULOXE CATHI HCL 59972380812 No Longer Active Bertrand Patel DO Active CYMBALTA 60 MG CPEP 1 cap by mouth daily DULOXE CATHI HCL 89066596468 Active Keysha Jones MA Active WELLBUTRIN 75 MG TABS 2 times daily BUPROPION H CL 81864325933 No Longer Active Bertrand Patel DO Active PROAIR HFA 108 (90 BASE) MCG/ACT AERS take one to two puffs po Q4-6 hour prn cough and shortness of breath ALBUTEROL SULFATE 5967187935 2 Active Silvia Arnold APRN Active AZITHROMYCIN 250 MG TABS take 2 po today then take 1 po days 2-5 AZITHROMYCIN 32470034983 No Longer Active Adolfo OSORIO Active PERMETHRIN 5 % CREA apply neck to toes tonight a nd then rinse off in morning. repeat at 7 days PERMETHRIN 27309732649 No Longer Active Adolfo OOSRIO Active AMOXICILLIN 500 MG CAPS 2 po BID x 10 days AMOX ICILLIN 10437036069 No Longer Active Yoil Mercado MD PhD Active ALPRAZOLAM 0.5 MG TAB 1 tab by mouth tid ALPRAZOL AM 46730607852 Active Nitza Mullins RPT,RMA Active INSUPEN ULTRAFIN 31G X 6 MM MISC USE DIRECTED 03/04 INSULIN PEN NEEDLE 25716226132 No Longer Active Bertrand Patel DO Active TRANSDERM-SCOP 1.5 MG PT72 1 patch applied behind ear q 3 day 20 04/13/28 SCOPOLAMINE BASE 33529787398 No Longer Active Bertrand Patel DO Active MACRODANTIN 100 MG CAPS one p.o. b.i.d. x2 weeks 03/04 NITROFURANTOIN MACROCRYSTAL 30101984170 No Longer Active Bertrand Patel DO Active MACRODANTIN 100 MG CAPS one p.o. b.i.d. x2 weeks 03/04 MACRODANTIN 100 MG CAPS 5278953 NITROFURANTOIN MACROCRYSTAL Inactive TRANSDERM-SCOP 1.5 MG PT72 [...] at 7 days PERMETHRIN 5 % CREA 712003 PERMETHRIN Inactive WELLBUTRIN 75 MG TABS 2 times daily WELLBUTRIN 75 MG TABS BUPROPION HCL Inactive CYMBALTA 30 MG CPEP 1 cap by mouth daily CYMBALTA 30 MG CPEP 770860 DULOXETINE HCL Inactive AZITHROMYCIN 500 MG SOLR 1 po q day ALTA THROMYCIN 500 MG SOLR 09009845721 AZITHROMYCIN Inactive CINNAMON ALPHA LIPOIC AC CMPLX CAPS by mouth twice a d ay in AM by mouth twice a day in PM CINNAMON ALPHA LIPOIC AC CMPLX CAPS ALPHA LIPOIC [id number] CAPS Inactive MICARDIS HCT 80-12.5 MG TABS 1 qd MICARDI S HCT 80-12.5 MG TABS 116420 TELMISARTAN-HCTZ Inactive PRAVASTATIN SODIUM 20 MG TABS 1 tablet by mouth daily at bedtime PRAVASTATIN SODIUM 20 MG TABS 834098 PRAVASTATIN SODIUM Inactive FUROSEMIDE 20 MG TABS 1 pill by mouth daily if needed for edema FUROSEMIDE 20 MG TABS 871095 FUROSEMIDE Inactive METFORMIN HCL 500 MG TABS 1 bid METFORMIN HCL 500 MG TABS 626924 METFORMIN HCL Inactive B-12 1000 MCG CAPS 1 tab daily B-12 1000 MCG CAP S CYANOCOBALAMIN Inactive VITAMIN E 200 UNIT CAPS 1 cap po qd VITAMIN E 2 00 UNIT CAPS 0667217 VITAMIN E Inactive [facility] MELATONIN 5-10 MG CR-TABS Take one by mouth daily at bedtime [facility] MELATONIN 5-10 MG CR-TABS MELATONIN-PYRIDOXI NE Inactive LORTAB 7.5-500 MG TABS take one po Q6 hours LORTAB 7.5-500 MG TABS HYDROCODONE-ACETAMINOPHEN Inactive AZITHROMYCIN 250 MG ORAL TABS Take 2 tabs po today then 1 ta b po daily AZITHROMYCIN 250 MG ORAL TABS 1709569 AZITHROMYCI N Inactive SYMBICORT 160-4.5 MCG/ACT AERO 2 puffs BID SYMBICORT 160- 4.5 MCG/ACT AERO BUDESONIDE-FORMOTEROL FUMARATE Inactive ALBUTEROL SULFATE 0.083 % NEBU SOLN one vial per nebul izer every 4-6 hours as needed ALBUTEROL SULFATE 0.083 % NEBU SOLN 32808 8 ALBUTEROL SULFATE Inactive NEBULIZER MISC use as directed NEBULIZER MISC NEBULIZERS Inactive TESSALON PERLES 100 MG CAP 1 tablet by mouth 3 times daily 07/07 TESSALON PERLES 100 MG CAP 877081 BENZONATATE Inact jairo CYCLOBENZAPRINE HCL 10 MG TABS Take 1 tab TID PRN for muscle pain CYCLOBENZAPRINE HCL 10 MG TABS 313769 CYCLOBENZAPRINE HCL Inactive AUGMENTIN 875-125 MG TAB 1 po BID x 10 days AUGMENTIN 875- 125 MG TAB 829868 AMOXICILLIN-POT CLAVULANATE Inactive BACTROBAN 2 % CREAM Apply to affected area BID for up to 10 days BACTROBAN 2 % CREAM 872557 MUPIROCIN CALCIUM Inactive AMOXICILLIN 500 MG CAPS 2 po BID x 10 days AMOXICILLIN 500 MG CAPS 948397 AMOXICILLIN Inactive AZITHROMYCIN 250 MG TABS take 2 po today then take 1 po days 2-5 AZITHROMYCIN 250 MG TABS 3328580 AZITHROMYCIN Inactiv e LEVAQUIN 500 MG TABS 1 pill by mouth daily LEVAQUIN 500 MG TABS 200005 LEVOFLOXACIN Inactive AUGMENTIN 875-125 MG TABS 1 pill by mouth twice daily AUGMENTIN 875-125 MG TABS 438540 AMOXICILLIN-POT CLAVULANATE Inacti ve AUGMENTIN 875-125 MG TAB 1 po BID x 10 days AUGMENTIN 875- 125 MG TAB 146485 AMOXICILLIN-POT CLAVULANATE Inactive PREDNISONE 20 MG TAB take 3 tabs daily for 3 days , 2 tabs daily for 3 days, 1 tab daily for 3 days, 1/2 tab daily for 3 days PREDNISONE 20 MG TAB 028674 PREDNISONE Inactive CIPRO 500 MG TAB 1 tablet by mouth twice daily CIPRO 500 MG TAB 603632 CIPROFLOXACIN HCL Inactive Vital Signs Date Name [...] 5.8 % 4.3-6.0 cholesterol, serum 200 mg/dL 591-824 2151/07/22 triglyceride, serum, fasting 56 mg/dL 30-200 HDL cholesterol, serum 80 mg/dL 32-96 LDL cholesterol, serum 109 mg/dL 0-130 albumin/creatinine ratio, urine < 30 mg/g mg/g{creat} 0-2 9 TSH 1.16 m[iU]/mL 0.36-3.74 sodium, serum 142 mmol/L 118-715 9204/07/22 carbon dioxide, venous blood 33.1 mmol/L 21.0-32 [...] 0-19 Encounters Code Encounter Date Provider Facility CPT-29912 Level 3 Est. Patient 11:27:00 REPRODUCTIVE SURGEON Ike Deluna MD [facility] CPT-02964 Level 3 Est. Patient 08:50:57 REPRODUCTIVE SURGEON Dangelo BARAJAS [facility] CPT-45028 Level 3 Est. Patient 10:04:13 CDT Bertrand marquez [facility] CPT-15141 Level 4 Est. Patient 16:02:10 REPRODUCTIVE SURGEON Dangelo BARAJAS [facility] CPT-79996 Level 3 Est. Patient 13:04:54 REPRODUCTIVE SURGEON Dangelo BARAJAS [facility]-94251 Level 3 Est. Patient 12:56:37 CDT Bertrand marqeuz [facility] CPT-63855 Level 3 Est. Patient 19:12:03 CDT Yoli tolbert MD PhD [facility]-17154 Level 3 Est. Patient 14:36:01 CDT Yoli tolbert MD [facility]-60045 Level 2 Est. Patient 08:00:22 CDT Jcarlos dc MD [facility]-82173 Level 3 Est. Patient 19:06:55 CDT Bertrand marquez [facility] CPT-39772 Level 3 Est. Patient 10:08:23 REPRODUCTIVE SURGEON Bertrand marquez [facility] CPT-10308 Level 3 Est. Patient 16:37:54 REPRODUCTIVE SURGEON Bertrand marquez [facility] CPT-61811 Level 3 Est. Patient 11:31:59 REPRODUCTIVE SURGEON Bertrand marquez [facility] CPT-42245 Level 3 Est. Patient 10:20:08 CDT Adolfo villasenor [facility] CPT-19331 Level 3 Est. Patient 13:45:20 CDT Sanket buckley [facility] CPT-31745 Level 3 Est. Patient 12:51:06 CDT Adolfo villasenor [facility] CPT-27654 Level 3 Est. Patient 11:22:51 REPRODUCTIVE SURGEON Yoli tolbert MD PhD [facility] CPT-50395 Level 3 Est. Patient 13:33:19 CDT Bertrand marquez DO [facility] Procedures Code Procedure Name Date Entry Date Standard Desc ription CPT-36392 Wound Culture - LAB USE ONLY 15:45:25 CDT 2 CPT-73507 Venipuncture Draw Fee 10:23:01 CDT CPT-J0696 Rocephin 1000 mg (Ceftriaxone) 16:20:30 REPRODUCTIVE SURGEON CPT-14030 Abx/Therapy Injection 16:20:29 REPRODUCTIVE SURGEON CPT-J0696 Rocephin 1gm Inj Solr 15:51:59 REPRODUCTIVE SURGEON CPT-91984 Chest 2V Frontal and Lat 15:20:28 REPRODUCTIVE SURGEON 07/22 CPT-53275 Breathing Tx 14:51:55 REPRODUCTIVE SURGEON CPT-13446 Breathing Tx 09:57:16 REPRODUCTIVE SURGEON CPT-88420 Knee comp 4/> V 11:58:06 REPRODUCTIVE SURGEON
--- OUTSIDE RECORDS SUMMARY | 2019-11-13 10:08 | XMS REPORT | Clinical Summary ---
Author Author Admin, Enrique Adamson Organization Known Address Unknown Phone Unavailable Allergies, Adverse Reactions, [...] day as needed for c ough BENZONATATE 69904842099 Active Ike Deluna MD Acti ve ZITHROMAX Z-MARTIN 250 MG TABS 2 today and then 1 daily for 4 days 201 12/01/06 AZITHROMYCIN 26586249295 Active Ike Deluna MD Active ADDERALL 10 MG ORAL TABS 1 tab twice daily AMPHETAMINE-DEXTROAMPHETAMINE 55326172536 Active Ike Deluna MD Active BACTROBAN 2 % CREAM Apply to affected area BID for up to 10 days MUPIROCIN CALCIUM 29617954593 No Longer Active Ike Deluna MD Active CIPRO 500 MG TAB 1 tablet by mouth twice daily CIPROFLOXACIN HCL 30706032962 No Longer Active Adriana Bender LPN Active AUGMENTIN 875-125 MG TAB 1 po BID x 10 days AMOXICILLIN- POT CLAVULANATE 62747127361 No Longer Active Adriana Bender LPN Active MODAFINIL 200 MG ORAL TABS Take 1/2 tab po in the am and 1/2 tab po at noon MODAFINIL 80722691083 Active Silvia Arnold APRN Active CYCLOBENZAPRINE HCL 10 MG TABS Take 1 tab TID PRN for muscle pain CYCLOBENZAPRINE HCL 04950086995 No Longer Active Bertrand Patel DO Ac tive TESSALON PERLES 100 MG CAP 1 tablet by mouth 3 times daily 07/07 BENZONATATE 10031657820 No Longer Active Bertrand Patel DO Ac tive NEBULIZER MISC use as directed NEBULIZERS 932411 96115 No Longer Active Bertrand Patel DO Active ALBUTEROL SULFATE 0.083 % NEBU SOLN one vial per nebul izer every 4-6 hours as needed ALBUTEROL SULFATE 42614203352 No Longer Active Bertrand Patel DO Active SYMBICORT 160-4.5 MCG/ACT AERO 2 puffs BID BUDESONIDE- FORMOTEROL FUMARATE 06717922272 No Longer Active Bertrand Patel DO Ac tive PREDNISONE 20 MG TAB take 3 tabs daily for 3 days , 2 tabs daily for 3 days, 1 tab daily for 3 days, 1/2 tab daily for 3 days P REDNISONE 47493418100 No Longer Active Silvia Arnold APRN Active AZITHROMYCIN 250 MG ORAL TABS Take 2 tabs po today then 1 ta b po daily AZITHROMYCIN 91551318943 No Longer Active Silvia gavin RESERVES CLERK Active AUGMENTIN 875-125 MG TAB 1 po BID x 10 days AMOXICILLIN- POT CLAVULANATE 90001123387 No Longer Active Adriana Bender LPN Active CHEWABLE CALCIUM 500-200-40 MG-UNT-MCG ORAL CHEW 1 chew tab bid 201 11/03/03 CALCIUM-VITAMIN D-VITAMIN K 52261785920 Active Silvia Arnold APRN Active EQ COMPLETE MULTIVIT ADULT 50+ ORAL TABS 1 tab po bid MULTIPLE VITAMINS-MINERALS 77058252785 Active Silvia Arnold APRN Act jairo HYDROCODONE-ACETAMINOPHEN 7.5-325 MG TABS TAKE ONE TAB EVERY 6 HOURS BY MOUTH NEEDED FOR PAIN HYDROCODONE-ACETAMINOPHEN 99902159277 Acti raheel العلي Active LORTAB 7.5-500 MG TABS take one po Q6 hours HYDROCODONE-ACETAMINOPHEN No Longer Active Nirmal Robbins RN Active [facility] MELATONIN 5-10 MG CR-TABS Take one by mouth daily at bedtime MELATONIN-PYRIDOXINE 92831520007 No Longer Active Bertrand Patel DO Active VITAMIN E 200 UNIT CAPS 1 cap po qd VITAMIN E 316 15914512 No Longer Active Bertrand Patel DO Active B-12 1000 MCG CAPS 1 tab daily CYANOCOBALAMIN 31 085654871 No Longer Active Bertrand Patel DO Active METFORMIN HCL 500 MG TABS 1 bid METFORMIN HCL 31163525223 No Longer Active Bertrand Patel DO Active FUROSEMIDE 20 MG TABS 1 pill by mouth daily if needed for edema FUROSEMIDE 05950779839 No Longer Active Bertrand Patel DO Act jairo PRAVASTATIN SODIUM 20 MG TABS 1 tablet by mouth daily at bedtime PRAVASTATIN SODIUM 86214859826 No Longer Active Bertrand Patel DO Active AUGMENTIN 875-125 MG TABS 1 pill by mouth twice daily AMOXICILLIN-POT CLAVULANATE 77492127050 No Longer Active Yoli Mercado MD PhD Active LEVAQUIN 500 MG TABS 1 pill by mouth daily LEVO FLOXACIN 75388267560 No Longer Active Yoli Mercado MD PhD Active AMLODIPINE BESYLATE 5 MG TABS 1 tablet by mouth daily for bl ood pressure AMLODIPINE BESYLATE 95202563742 Active Keysha Jones MA Active MICARDIS 80 MG TABS 1 tablet daily for blood pressure TELMISARTAN 24663952069 Active Keysha Jones MA Active MICARDIS HCT 80-12.5 MG TABS 1 qd TELMISARTA N-HCTZ 51094182339 No Longer Active Bertrand Patel DO Active CINNAMON ALPHA LIPOIC AC CMPLX CAPS by mouth twice a d ay in AM by mouth twice a day in PM ALPHA LIPOIC [id number] CAPS 998661 42223 No Longer Active Bertrand Patel DO Active AZITHROMYCIN 500 MG SOLR 1 po q day AZITHROMYCI N 70237142889 No Longer Active Bertrand Patel DO Active CYMBALTA 30 MG CPEP 1 cap by mouth daily DULOXE CATHI HCL 90544042755 No Longer Active Bertrand Patel DO Active CYMBALTA 60 MG CPEP 1 cap by mouth daily DULOXE CATHI HCL 06445594573 Active Keysha Jones MA Active WELLBUTRIN 75 MG TABS 2 times daily BUPROPION H CL 75434378808 No Longer Active Bertrand Patel DO Active PROAIR HFA 108 (90 BASE) MCG/ACT AERS take one to two puffs po Q4-6 hour prn cough and shortness of breath ALBUTEROL SULFATE 1033728851 2 Active Silvia Arnold APRN Active AZITHROMYCIN 250 MG TABS take 2 po today then take 1 po days 2-5 AZITHROMYCIN 89698077989 No Longer Active Adolfo OSORIO Active PERMETHRIN 5 % CREA apply neck to toes tonight a nd then rinse off in morning. repeat at 7 days PERMETHRIN 47339221466 No Longer Active Adolfo OSORIO Active AMOXICILLIN 500 MG CAPS 2 po BID x 10 days AMOX ICILLIN 97132492454 No Longer Active Yoli Mercado MD PhD Active ALPRAZOLAM 0.5 MG TAB 1 tab by mouth tid ALPRAZOL AM 67732488452 Active Nitza Mullins RPT,RMA Active INSUPEN ULTRAFIN 31G X 6 MM MISC USE DIRECTED 03/04 INSULIN PEN NEEDLE 57402758582 No Longer Active Bertrand Patel DO Active TRANSDERM-SCOP 1.5 MG PT72 1 patch applied behind ear q 3 day 20 04/13/28 SCOPOLAMINE BASE 15011515084 No Longer Active Bertrand Patel DO Active MACRODANTIN 100 MG CAPS one p.o. b.i.d. x2 weeks 03/04 NITROFURANTOIN MACROCRYSTAL 44044503869 No Longer Active Bertrand Patel DO Active MACRODANTIN 100 MG CAPS one p.o. b.i.d. x2 weeks 03/04 MACRODANTIN 100 MG CAPS 1207735 NITROFURANTOIN MACROCRYSTAL Inactive TRANSDERM-SCOP 1.5 MG PT72 [...] at 7 days PERMETHRIN 5 % CREA 365237 PERMETHRIN Inactive WELLBUTRIN 75 MG TABS 2 times daily WELLBUTRIN 75 MG TABS BUPROPION HCL Inactive CYMBALTA 30 MG CPEP 1 cap by mouth daily CYMBALTA 30 MG CPEP 787764 DULOXETINE HCL Inactive AZITHROMYCIN 500 MG SOLR 1 po q day ALTA THROMYCIN 500 MG SOLR 68944526092 AZITHROMYCIN Inactive CINNAMON ALPHA LIPOIC AC CMPLX CAPS by mouth twice a d ay in AM by mouth twice a day in PM CINNAMON ALPHA LIPOIC AC CMPLX CAPS ALPHA LIPOIC [id number] CAPS Inactive MICARDIS HCT 80-12.5 MG TABS 1 qd MICARDI S HCT 80-12.5 MG TABS 576354 TELMISARTAN-HCTZ Inactive PRAVASTATIN SODIUM 20 MG TABS 1 tablet by mouth daily at bedtime PRAVASTATIN SODIUM 20 MG TABS 497433 PRAVASTATIN SODIUM Inactive FUROSEMIDE 20 MG TABS 1 pill by mouth daily if needed for edema FUROSEMIDE 20 MG TABS 542062 FUROSEMIDE Inactive METFORMIN HCL 500 MG TABS 1 bid METFORMIN HCL 500 MG TABS 438251 METFORMIN HCL Inactive B-12 1000 MCG CAPS 1 tab daily B-12 1000 MCG CAP S CYANOCOBALAMIN Inactive VITAMIN E 200 UNIT CAPS 1 cap po qd VITAMIN E 2 00 UNIT CAPS 3261349 VITAMIN E Inactive [facility] MELATONIN 5-10 MG CR-TABS Take one by mouth daily at bedtime [facility] MELATONIN 5-10 MG CR-TABS MELATONIN-PYRIDOXI NE Inactive LORTAB 7.5-500 MG TABS take one po Q6 hours LORTAB 7.5-500 MG TABS HYDROCODONE-ACETAMINOPHEN Inactive AZITHROMYCIN 250 MG ORAL TABS Take 2 tabs po today then 1 ta b po daily AZITHROMYCIN 250 MG ORAL TABS 2623390 AZITHROMYCI N Inactive SYMBICORT 160-4.5 MCG/ACT AERO 2 puffs BID SYMBICORT 160- 4.5 MCG/ACT AERO BUDESONIDE-FORMOTEROL FUMARATE Inactive ALBUTEROL SULFATE 0.083 % NEBU SOLN one vial per nebul izer every 4-6 hours as needed ALBUTEROL SULFATE 0.083 % NEBU SOLN 99803 8 ALBUTEROL SULFATE Inactive NEBULIZER MISC use as directed NEBULIZER MISC NEBULIZERS Inactive TESSALON PERLES 100 MG CAP 1 tablet by mouth 3 times daily 07/07 TESSALON PERLES 100 MG CAP 643905 BENZONATATE Inact jairo CYCLOBENZAPRINE HCL 10 MG TABS Take 1 tab TID PRN for muscle pain CYCLOBENZAPRINE HCL 10 MG TABS 583204 CYCLOBENZAPRINE HCL Inactive AUGMENTIN 875-125 MG TAB 1 po BID x 10 days AUGMENTIN 875- 125 MG TAB 388040 AMOXICILLIN-POT CLAVULANATE Inactive BACTROBAN 2 % CREAM Apply to affected area BID for up to 10 days BACTROBAN 2 % CREAM 795853 MUPIROCIN CALCIUM Inactive AMOXICILLIN 500 MG CAPS 2 po BID x 10 days AMOXICILLIN 500 MG CAPS 307663 AMOXICILLIN Inactive AZITHROMYCIN 250 MG TABS take 2 po today then take 1 po days 2-5 AZITHROMYCIN 250 MG TABS 5144030 AZITHROMYCIN Inactiv e LEVAQUIN 500 MG TABS 1 pill by mouth daily LEVAQUIN 500 MG TABS 518102 LEVOFLOXACIN Inactive AUGMENTIN 875-125 MG TABS 1 pill by mouth twice daily AUGMENTIN 875-125 MG TABS 886996 AMOXICILLIN-POT CLAVULANATE Inacti ve AUGMENTIN 875-125 MG TAB 1 po BID x 10 days AUGMENTIN 875- 125 MG TAB 153868 AMOXICILLIN-POT CLAVULANATE Inactive PREDNISONE 20 MG TAB take 3 tabs daily for 3 days , 2 tabs daily for 3 days, 1 tab daily for 3 days, 1/2 tab daily for 3 days PREDNISONE 20 MG TAB 290115 PREDNISONE Inactive CIPRO 500 MG TAB 1 tablet by mouth twice daily CIPRO 500 MG TAB 951086 CIPROFLOXACIN HCL Inactive Vital Signs Date Name [...] 5.8 % 4.3-6.0 cholesterol, serum 200 mg/dL 689-323 8694/07/22 triglyceride, serum, fasting 56 mg/dL 30-200 HDL cholesterol, serum 80 mg/dL 32-96 LDL cholesterol, serum 109 mg/dL 0-130 albumin/creatinine ratio, urine < 30 mg/g mg/g{creat} 0-2 9 TSH 1.16 m[iU]/mL 0.36-3.74 sodium, serum 142 mmol/L 059-983 6089/07/22 carbon dioxide, venous blood 33.1 mmol/L 21.0-32 [...] Negative;Positive Encounters Code Encounter Date Provider Facility CPT-90047 Level 3 Est. Patient 11:27:00 BOOK COVERER Ike Deluna MD [facility] CPT-13033 Level 3 Est. Patient 08:50:57 BOOK COVERER Dangelo RESERVES CLERK [facility] CPT-43753 Level 3 Est. Patient 10:04:13 CDT Bertrand marquez [facility] CPT-00514 Level 4 Est. Patient 16:02:10 BOOK COVERER Dangelo [facility] [facility] CPT-59706 Level 3 Est. Patient 13:04:54 BOOK COVERER Dangelo [facility] CPT-88767 Level 3 Est. Patient 12:56:37 CDT Bertrand marquez [facility] CPT-10845 Level 3 Est. Patient 19:12:03 CDT Yoli tolbert MD PhD [facility] CPT-43769 Level 3 Est. Patient 14:36:01 CDT Yoli tolbert MD [facility] CPT-03170 Level 2 Est. Patient 08:00:22 CDT Jcarlos dc MD [facility] CPT-33194 Level 3 Est. Patient 19:06:55 CDT Bertrand marquez [facility] CPT-24769 Level 3 Est. Patient 10:08:23 BOOK COVERER Bertrand marquez [facility] CPT-77874 Level 3 Est. Patient 16:37:54 BOOK COVERER Bertrand marquez [facility] CPT-78174 Level 3 Est. Patient 11:31:59 BOOK COVERER Bertrand marquez [facility] CPT-76214 Level 3 Est. Patient 10:20:08 CDT Adolfo Jerzy hallist [facility] CPT-55319 Level 3 Est. Patient 13:45:20 CDT Sanket buckley [facility] CPT-47628 Level 3 Est. Patient 12:51:06 CDT Gennadot villasenor [facility] CPT-39366 Level 3 Est. Patient 11:22:51 BOOK COVERER Yoli tolbert MD [facility] CPT-37808 Level 3 Est. Patient 13:33:19 CDT Bertrand marquez [facility] Procedures Code Procedure Name Date Entry Date Standard Desc ription CPT-25987 Wound Culture - LAB USE ONLY 15:45:25 CDT 2 CPT-55129 Venipuncture Draw Fee 10:23:01 CDT CPT-J0696 Rocephin 1000 mg (Ceftriaxone) 16:20:30 BOOK COVERER CPT-79567 Abx/Therapy Injection 16:20:29 BOOK COVERER CPT-J0696 Rocephin 1gm Inj Solr 15:51:59 BOOK COVERER CPT-60724 Chest 2V Frontal and Lat 15:20:28 BOOK COVERER 07/22 CPT-05985 Breathing Tx 14:51:55 BOOK COVERER CPT-99765 Breathing Tx 09:57:16 BOOK COVERER CPT-07229 Knee comp 4/> V 11:58:06 BOOK COVERER
--- OUTSIDE RECORDS SUMMARY | 2019-11-13 10:08 | XMS REPORT | Clinical Summary ---
Author Author Admin, Enrique Adamson Organization [facility] Address Unknown Phone Unavailable Allergies, Adverse Reactions, [...] day as needed for c ough BENZONATATE [id number] Active Ike Deluna MD Acti ve ZITHROMAX Z-MARTIN 250 MG TABS 2 today and then 1 daily for 4 days 201 12/01/06 AZITHROMYCIN 26428513366 Active Ike Deluna MD Active ADDERALL 10 MG ORAL TABS 1 tab twice daily AMPHETAMINE-DEXTROAMPHETAMINE 55058230551 Active Ike Deluna MD Active BACTROBAN 2 % CREAM Apply to affected area BID for up to 10 days MUPIROCIN CALCIUM 83080763379 No Longer Active Ike Deluna MD Active CIPRO 500 MG TAB 1 tablet by mouth twice daily CIPROFLOXACIN HCL 66610430525 No Longer Active Adriana Bender LPN Active AUGMENTIN 875-125 MG TAB 1 po BID x 10 days AMOXICILLIN- POT CLAVULANATE 45199030469 No Longer Active Adriana Bender LPN Active MODAFINIL 200 MG ORAL TABS Take 1/2 tab po in the am and 1/2 tab po at noon MODAFINIL 02281695538 Active Darlyn vega CYCLOBENZAPRINE HCL 10 MG TABS Take 1 tab TID PRN for muscle pain CYCLOBENZAPRINE HCL 60695552787 No Longer Active Bertrand Patel DO Ac tive TESSALON PERLES 100 MG CAP 1 tablet by mouth 3 times daily 07/07 BENZONATATE 62207563891 No Longer Active Bertrand Patel DO Ac tive NEBULIZER MISC use as directed NEBULIZERS 249193 80186 No Longer Active Bertrand Patel DO Active ALBUTEROL SULFATE 0.083 % NEBU SOLCammy one vial per nebul izer every 4-6 hours as needed ALBUTEROL SULFATE 71051928248 No Longer Active Bertrand Patel DO Active SYMBICORT 160-4.5 MCG/ACT AERO 2 puffs BID BUDESONIDE- FORMOTEROL FUMARATE 76785595562 No Longer Active Bertrand Patel DO Ac tive PREDNISONE 20 MG TAB take 3 tabs daily for 3 days , 2 tabs daily for 3 days, 1 tab daily for 3 days, 1/2 tab daily for 3 days P REDNISONE 93390927315 No Longer Active Silvia Arnold APRN Active AZITHROMYCIN 250 MG ORAL TABS Take 2 tabs po today then 1 ta b po daily AZITHROMYCIN 48225043923 No Longer Active Silvia gavin FLIGHT NURSE Active AUGMENTIN 875-125 MG TAB 1 po BID x 10 days AMOXICILLIN- POT CLAVULANATE 95055205988 No Longer Active Adriana Bender LPN Active CHEWABLE CALCIUM 500-200-40 MG-UNT-MCG ORAL CHEW 1 chew tab bid 201 11/03/03 CALCIUM-VITAMIN D-VITAMIN K 63310710396 Active Silvia Arnold APRN Active EQ COMPLETE MULTIVIT ADULT 50+ ORAL TABS 1 tab po bid MULTIPLE VITAMINS-MINERALS 55493499075 Active Silvia Arnold APRN Act jairo HYDROCODONE-ACETAMINOPHEN 7.5-325 MG TABS TAKE ONE TAB EVERY 6 HOURS BY MOUTH NEEDED FOR PAIN HYDROCODONE-ACETAMINOPHEN 33501758334 Acti raheel العلي Active LORTAB 7.5-500 MG TABS take one po Q6 hours HYDROCODONE-ACETAMINOPHEN No Longer Active Nirmal Robbins RN Active [facility] MELATONIN 5-10 MG CR-TABS Take one by mouth daily at bedtime MELATONIN-PYRIDOXINE 96637277574 No Longer Active Bertrand Patel DO Active VITAMIN E 200 UNIT CAPS 1 cap po qd VITAMIN E 316 77235384 No Longer Active Bertrand Patel DO Active B-12 1000 MCG CAPS 1 tab daily CYANOCOBALAMIN 31 205852746 No Longer Active Bertrand Patel DO Active METFORMIN HCL 500 MG TABS 1 bid METFORMIN HCL 85358438633 No Longer Active Bertrand Patel DO Active FUROSEMIDE 20 MG TABS 1 pill by mouth daily if needed for edema FUROSEMIDE 15173687783 No Longer Active Bertrand Patel DO Act jairo PRAVASTATIN SODIUM 20 MG TABS 1 tablet by mouth daily at bedtime PRAVASTATIN SODIUM 73808812429 No Longer Active Bertrand Patel DO Active AUGMENTIN 875-125 MG TABS 1 pill by mouth twice daily AMOXICILLIN-POT CLAVULANATE 20409017647 No Longer Active Yoli Mercado MD PhD Active LEVAQUIN 500 MG TABS 1 pill by mouth daily LEVO FLOXACIN 63057978296 No Longer Active Yoli Mercado MD PhD Active AMLODIPINE BESYLATE 5 MG TABS 1 tablet by mouth daily for bl ood pressure AMLODIPINE BESYLATE 32311448887 Active Darlyn Mckinnonmerman Active MICARDIS 80 MG TABS 1 tablet daily for blood pressure TELMISARTAN 55518840486 Active Darlyn Nicolás Active MICARDIS HCT 80-12.5 MG TABS 1 qd TELMISARTA N-HCTZ 99345148575 No Longer Active Bertrand Patel DO Active CINNAMON ALPHA LIPOIC AC CMPLX CAPS by mouth twice a d ay in AM by mouth twice a day in PM ALPHA LIPOIC AYGY-LJ-VJMEUIVW CAPS 372580 32076 No Longer Active Bertrand Patel DO Active AZITHROMYCIN 500 MG SOLR 1 po q day AZITHROMYCI N 62451819621 No Longer Active Bertrand Patel DO Active CYMBALTA 30 MG CPEP 1 cap by mouth daily DULOXE CATHI HCL 39749737743 No Longer Active Bertrand Patel DO Active CYMBALTA 60 MG CPEP 1 cap by mouth daily DULOXE CATHI HCL 07397044449 Active Keysha Jones MA Active WELLBUTRIN 75 MG TABS 2 times daily BUPROPION H CL 32926764919 No Longer Active Bertrand Patel DO Active PROAIR HFA 108 (90 BASE) MCG/ACT AERS take one to two puffs po Q4-6 hour prn cough and shortness of breath ALBUTEROL SULFATE 8489142463 2 Active Silvai Arnold APRN Active AZITHROMYCIN 250 MG TABS take 2 po today then take 1 po days 2-5 AZITHROMYCIN 67875152085 No Longer Active Adolfo OSORIO Active PERMETHRIN 5 % CREA apply neck to toes tonight a nd then rinse off in morning. repeat at 7 days PERMETHRIN 81611265628 No Longer Active Adolfo OSORIO Active AMOXICILLIN 500 MG CAPS 2 po BID x 10 days AMOX ICILLIN 43222628735 No Longer Active Yoli Mercado MD PhD Active ALPRAZOLAM 0.5 MG TAB 1 tab by mouth tid ALPRAZOL AM 40449579759 Active Nitza Mullins RPT,RMA Active INSUPEN ULTRAFIN 31G X 6 MM MISC USE DIRECTED 03/04 INSULIN PEN NEEDLE 81256189976 No Longer Active Bertrand Patel DO Active TRANSDERM-SCOP 1.5 MG PT72 1 patch applied behind ear q 3 day 20 04/13/28 SCOPOLAMINE BASE 39959334470 No Longer Active Bertrand Patel DO Active MACRODANTIN 100 MG CAPS one p.o. b.i.d. x2 weeks 03/04 NITROFURANTOIN MACROCRYSTAL 22545113209 No Longer Active Bertrand Patel DO Active MACRODANTIN 100 MG CAPS one p.o. b.i.d. x2 weeks 03/04 MACRODANTIN 100 MG CAPS 0204023 NITROFURANTOIN MACROCRYSTAL Inactive TRANSDERM-SCOP 1.5 MG PT72 [...] at 7 days PERMETHRIN 5 % CREA 990452 PERMETHRIN Inactive WELLBUTRIN 75 MG TABS 2 times daily WELLBUTRIN 75 MG TABS BUPROPION HCL Inactive CYMBALTA 30 MG CPEP 1 cap by mouth daily CYMBALTA 30 MG CPEP 108710 DULOXETINE HCL Inactive AZITHROMYCIN 500 MG SOLR 1 po q day ALTA THROMYCIN 500 MG SOLR 48310546898 AZITHROMYCIN Inactive CINNAMON ALPHA LIPOIC AC CMPLX CAPS by mouth twice a d ay in AM by mouth twice a day in PM CINNAMON ALPHA LIPOIC AC CMPLX CAPS ALPHA LIPOIC [id number] CAPS Inactive MICARDIS HCT 80-12.5 MG TABS 1 qd MICARDI S HCT 80-12.5 MG TABS 278405 TELMISARTAN-HCTZ Inactive PRAVASTATIN SODIUM 20 MG TABS 1 tablet by mouth daily at bedtime PRAVASTATIN SODIUM 20 MG TABS 505328 PRAVASTATIN SODIUM Inactive FUROSEMIDE 20 MG TABS 1 pill by mouth daily if needed for edema FUROSEMIDE 20 MG TABS 363958 FUROSEMIDE Inactive METFORMIN HCL 500 MG TABS 1 bid METFORMIN HCL 500 MG TABS 395145 METFORMIN HCL Inactive B-12 1000 MCG CAPS 1 tab daily B-12 1000 MCG CAP S CYANOCOBALAMIN Inactive VITAMIN E 200 UNIT CAPS 1 cap po qd VITAMIN E 2 00 UNIT CAPS 4356815 VITAMIN E Inactive [facility] MELATONIN 5-10 MG CR-TABS Take one by mouth daily at bedtime [facility] MELATONIN 5-10 MG CR-TABS MELATONIN-PYRIDOXI NE Inactive LORTAB 7.5-500 MG TABS take one po Q6 hours LORTAB 7.5-500 MG TABS HYDROCODONE-ACETAMINOPHEN Inactive AZITHROMYCIN 250 MG ORAL TABS Take 2 tabs po today then 1 ta b po daily AZITHROMYCIN 250 MG ORAL TABS 9295502 AZITHROMYCI N Inactive SYMBICORT 160-4.5 MCG/ACT AERO 2 puffs BID SYMBICORT 160- 4.5 MCG/ACT AERO BUDESONIDE-FORMOTEROL FUMARATE Inactive ALBUTEROL SULFATE 0.083 % NEBU SOLN one vial per nebul izer every 4-6 hours as needed ALBUTEROL SULFATE 0.083 % NEBU SOLN 11422 8 ALBUTEROL SULFATE Inactive NEBULIZER MISC use as directed NEBULIZER MISC NEBULIZERS Inactive TESSALON PERLES 100 MG CAP 1 tablet by mouth 3 times daily 07/07 TESSALON PERLES 100 MG CAP 041408 BENZONATATE Inact jairo CYCLOBENZAPRINE HCL 10 MG TABS Take 1 tab TID PRN for muscle pain CYCLOBENZAPRINE HCL 10 MG TABS 774990 CYCLOBENZAPRINE HCL Inactive AUGMENTIN 875-125 MG TAB 1 po BID x 10 days AUGMENTIN 875- 125 MG TAB 968523 AMOXICILLIN-POT CLAVULANATE Inactive BACTROBAN 2 % CREAM Apply to affected area BID for up to 10 days BACTROBAN 2 % CREAM 069696 MUPIROCIN CALCIUM Inactive AMOXICILLIN 500 MG CAPS 2 po BID x 10 days AMOXICILLIN 500 MG CAPS 318924 AMOXICILLIN Inactive AZITHROMYCIN 250 MG TABS take 2 po today then take 1 po days 2-5 AZITHROMYCIN 250 MG TABS 3322901 AZITHROMYCIN Inactiv e LEVAQUIN 500 MG TABS 1 pill by mouth daily LEVAQUIN 500 MG TABS 321848 LEVOFLOXACIN Inactive AUGMENTIN 875-125 MG TABS 1 pill by mouth twice daily AUGMENTIN 875-125 MG TABS 007637 AMOXICILLIN-POT CLAVULANATE Inacti ve AUGMENTIN 875-125 MG TAB 1 po BID x 10 days AUGMENTIN 875- 125 MG TAB 438062 AMOXICILLIN-POT CLAVULANATE Inactive PREDNISONE 20 MG TAB take 3 tabs daily for 3 days , 2 tabs daily for 3 days, 1 tab daily for 3 days, 1/2 tab daily for 3 days PREDNISONE 20 MG TAB 702025 PREDNISONE Inactive CIPRO 500 MG TAB 1 tablet by mouth twice daily CIPRO 500 MG TAB 894537 CIPROFLOXACIN HCL Inactive Vital Signs Date Name [...] B/CREAT W/RATIO, Thyroid Stimula ... - Chemistry sodium, serum 142 mmol/L 183-871 2685/07/22 carbon dioxide, venous blood 33.1 mmol/L 21.0-32 .0 potassium, serum 4.6 mmol/L 3.5-5.2 chloride, serum 105 mmol/L 98-107 blood glucose 96 mg/dL 65-110 urea nitrogen, blood 16 mg/dL 7-18 creatinine, serum 0.69 mg/dL 0.55-1.30 alanine aminotransferase (SGPT), serum 22 U/L 12-78 aspartate aminotransferase (SGOT), serum 18 U/L 15-37 calcium, serum 8.7 mg/dL 8.5-10.1 bilirubin, serum, total 0.40 mg/dL 0.00-1.00 LDL cholesterol, serum 109 mg/dL 0-130 HDL cholesterol, serum 80 mg/dL 32-96 triglyceride, serum, fasting 56 mg/dL 30-200 cholesterol, serum 200 mg/dL 956-264 7304/07/22 hemoglobin A1C, blood, as % of total hemoglobin 5.8 % 4.3-6.0 albumin/creatinine ratio, urine < 30 mg/g mg/g{creat} [...] 0-19 Encounters Code Encounter Date Provider Facility CPT-47200 Level 3 Est. Patient 11:27:00 INTERACTIVE MEDIA DIRECTOR Ike Deluna MD [facility] CPT-00005 Level 3 Est. Patient 08:50:57 INTERACTIVE MEDIA DIRECTOR Dangelo FLIGHT NURSE [facility] CPT-62663 Level 3 Est. Patient 10:04:13 CDT Bertrand marquez [facility] CPT-93009 Level 4 Est. Patient 16:02:10 INTERACTIVE MEDIA DIRECTOR Dangelo [facility] CPT-77298 Level 3 Est. Patient 13:04:54 INTERACTIVE MEDIA DIRECTOR Dangelo [facility] CPT-95658 Level 3 Est. Patient 12:56:37 CDT Bertrand marquez [facility] CPT-31399 Level 3 Est. Patient 19:12:03 CDT Yoli tolbert MD PhD [facility] CPT-90536 Level 3 Est. Patient 14:36:01 CDT Yoli tolbert MD [facility] CPT-59411 Level 2 Est. Patient 08:00:22 CDT Jcarlos dc MD [facility] CPT-58971 Level 3 Est. Patient 19:06:55 CDT Bertrand marquez [facility] CPT-41195 Level 3 Est. Patient 10:08:23 INTERACTIVE MEDIA DIRECTOR Bertrand marquez [facility] CPT-18262 Level 3 Est. Patient 16:37:54 INTERACTIVE MEDIA DIRECTOR Bertrand marquez [facility] CPT-63615 Level 3 Est. Patient 11:31:59 INTERACTIVE MEDIA DIRECTOR Bertrand marquez [facility] CPT-75588 Level 3 Est. Patient 10:20:08 CDT Demie Ahl jacklyn [facility] CPT-47259 Level 3 Est. Patient 13:45:20 CDT Sanket Ankit buckley [facility] CPT-22299 Level 3 Est. Patient 12:51:06 CDT Adolfo Jerzy villasenor [facility] CPT-84950 Level 3 Est. Patient 11:22:51 INTERACTIVE MEDIA DIRECTOR Yoli tolbert MD PhD [facility] CPT-33494 Level 3 Est. Patient 13:33:19 CDT Bertrand Sabillon ee DO [facility] Procedures Code Procedure Name Date Entry Date Standard Desc ription CPT-13497 Wound Culture - LAB USE ONLY 15:45:25 CDT 2 CPT-35604 Venipuncture Draw Fee 10:23:01 CDT CPT-J0696 Rocephin 1000 mg (Ceftriaxone) 16:20:30 INTERACTIVE MEDIA DIRECTOR CPT-43565 Abx/Therapy Injection 16:20:29 INTERACTIVE MEDIA DIRECTOR CPT-J0696 Rocephin 1gm Inj Solr 15:51:59 INTERACTIVE MEDIA DIRECTOR CPT-32050 Chest 2V Frontal and Lat 15:20:28 INTERACTIVE MEDIA DIRECTOR 07/22 CPT-90541 Breathing Tx 14:51:55 INTERACTIVE MEDIA DIRECTOR CPT-36087 Breathing Tx 09:57:16 INTERACTIVE MEDIA DIRECTOR CPT-48679 Knee comp 4/> V 11:58:06 INTERACTIVE MEDIA DIRECTOR
--- OUTSIDE RECORDS SUMMARY | 2019-11-13 10:09 | XMS REPORT | Clinical Summary ---
Author Author Admin, Enrique Adamson Organization [facility] [employer] Address Unknown Phone Unavailable Allergies, Adverse Reactions, [...] 09/09/28 EDEMA LEG ICD-782.3 Inactive Adele Feldman GENERAL MANAGER 201 01/01/02 SHORTNESS OF BREATH ICD-786.05 Inactive Yoli Mercado MD PhD RIB PAIN, RIGHT SIDED ICD-786.50 Inactive Yoli Mercado MD PhD KNEE PAIN, RIGHT ICD-719.46 Inactive Adele Esqueda ghn GENERAL MANAGER Knee pain, left ICD-719.46 Inactive Adele Holden hn GENERAL MANAGER Pharyngitis-Acute ICD-462 Inactive Bertrand Redmond DO Polyuria ICD-788.42 Inactive Yoli Mercado MD P hD Cellulitis, leg, right ICD-682.6 Inactive Yuki Deluna MD Foreign body, ear ICD-931 Inactive Yoli salazar MD PhD Fatigue ICD-780.79 Inactive Ike Deluna MD 201 12/01/06 Headache ICD-784.0 Inactive Adele Feldman GENERAL MANAGER 2017 Cough ICD-786.2 Inactive Adele Feldman GENERAL MANAGER 06/04 SINUSITIS, ACUTE ICD-461.9 Inactive Ike lange MD Fatigue ICD-780.79 Inactive Adele Feldman GENERAL MANAGER 2017 Bronchitis acute with bronchospasm ICD-466.0 I nactive Adele Feldman GENERAL MANAGER Animal bite ICD-919.8 Inactive Adele Feldman LP N Mycoplasma infection ICD-041.81 Inactive Anit a Feldman GENERAL MANAGER Amenorrhea, secondary ICD-626.0 Inactive Ani quinton Downsn GENERAL MANAGER Medication List Medication Instructions Start Date Stop Date Generic Name NDC Status Provider Patient Instruction ADDERALL 10 MG ORAL TABLET 1 tab twice daily 2 AMPHETAMINE-DEXTROAMPHETAMINE 30266726135 No Longer Active Nitza Phi llips Scribe Active ZITHROMAX Z-MARTIN 250 MG ORAL TABLET 2 today and then 1 daily for 4 days AZITHROMYCIN 51516040957 No Longer Active Nitza Osman lips Scribe Active BENZONATATE 200 MG ORAL CAPSULE 1 three times a day as neede d for cough BENZONATATE 68358871807 No Longer Active Nitza Osman lips Scribe Active VITAMIN D3 77601 UNIT ORAL CAPSULE 1 pill Week x 4 mo nths for vitamin D deficiency/osteoporosis CHOLECALCIFEROL 69798983005 N o Longer Active Layla Mcmullen Active BACTROBAN 2 % EXTERNAL CREAM Apply to affected area BID for up to 10 days MUPIROCIN CALCIUM 81853823301 No Longer Active Ike Deluna MD Active CIPRO 500 MG ORAL TABLET 1 tablet by mouth twice daily CIPROFLOXACIN HCL 28986471504 No Longer Active Adriana Bender LPN Active AUGMENTIN 875-125 MG ORAL TABLET 1 po BID x 10 days 18/04/06 AMOXICILLIN-POT CLAVULANATE 57978338202 No Longer Active Adriana Bender LPN Active MODAFINIL 200 MG ORAL TABLET Take 1/2 tab po in the am and 1 /2 tab po at noon MODAFINIL 08186834900 Active Bertrand Patel DO Ac tive CYCLOBENZAPRINE HCL 10 MG ORAL TABLET Take 1 tab TID PRN for mus triston pain CYCLOBENZAPRINE HCL 26330374314 No Longer Active Bertrand Patel DO Active TESSALON PERLES 100 MG ORAL CAPSULE 1 tablet by mouth 3 times da juan pablo BENZONATATE 24138502850 No Longer Active Bertrand Patel DO Ac tive NEBULIZER use as directed NEBULIZERS 55464874744 No Longer Active Bertrand Patel DO Active ALBUTEROL SULFATE (2.5 MG/3ML) 0.083% INHALATION NEBUL IZATION SOLUTION one vial per nebulizer every 4-6 hours as needed ALBUTERO L SULFATE 48797888540 No Longer Active Bertrand Patel DO Active SYMBICORT 160-4.5 MCG/ACT INHALATION AEROSOL 2 puffs BID 9 BUDESONIDE-FORMOTEROL FUMARATE 14151180673 No Longer Active Bertrand Patel DO Active PREDNISONE 20 MG ORAL TABLET take 3 tabs daily for 3 d ays, 2 tabs daily for 3 days, 1 tab daily for 3 days, 1/2 tab daily for 3 days 08/02 PREDNISONE 38185980255 No Longer Active Silvia Arnold [employer] Acti ve AZITHROMYCIN 250 MG ORAL TABLET Take 2 tabs po today then 1 tab po daily AZITHROMYCIN 60940011286 No Longer Active Silvia gavin [employer] Active AUGMENTIN 875-125 MG ORAL TABLET 1 po BID x 10 days 20 19/07/13 AMOXICILLIN-POT CLAVULANATE 37045246409 No Longer Active Adriana Bender LPN Active CHEWABLE CALCIUM 500-200-40 MG-UNT-MCG ORAL TABLET CHEWABLE 1 chew tab bid CALCIUM-VITAMIN D-VITAMIN K 57284792944 Active Silvia garlandgypsy APPRAISER LAND Active EQ COMPLETE MULTIVIT ADULT 50+ ORAL TABLET 1 tab po bid MULTIPLE VITAMINS-MINERALS 80584465819 Active Silvia Arnold [employer] Act [place] HYDROCODONE-ACETAMINOPHEN 7.5-325 MG ORAL TABLET TAKE ONE TAB EVERY 6 HOURS BY MOUTH NEEDED FOR PAIN HYDROCODONE-ACETAMINOPHEN 004 33241542 Active Adele Feldman GENERAL MANAGER Active LORTAB 7.5-500 MG ORAL TABLET take one po Q6 hours 201 09/12/01 HYDROCODONE-ACETAMINOPHEN 17259288885 No Longer Active Nirmal Robbins RN Active [facility] MELATONIN 5-10 MG ORAL TABLET EXTENDED RELEASE Jair e one by mouth daily at bedtime MELATONIN-PYRIDOXINE 81025564147 No Longer Acti ve Bertrand Patel DO Active VITAMIN E 200 UNIT ORAL CAPSULE 1 cap po qd VITAM IN E 20213174084 No Longer Active Bertrand Patel DO Active B-12 1000 MCG ORAL CAPSULE 1 tab daily CYANOCOB ALAMIN 66403625542 No Longer Active Bertrand Patel DO Active METFORMIN HCL 500 MG ORAL TABLET 1 bid METFOR MIN HCL 39697608340 No Longer Active Bertrand Patel DO Active FUROSEMIDE 20 MG ORAL TABLET 1 pill by mouth daily if needed for edema FUROSEMIDE 21031290539 No Longer Active Bertrand Patel DO Active PRAVASTATIN SODIUM 20 MG ORAL TABLET 1 tablet by mouth daily at bedtime PRAVASTATIN SODIUM 76489030398 No Longer Active Bertrand Patel DO Active AUGMENTIN 875-125 MG ORAL TABLET 1 pill by mouth twice daily 201 09/10/00 AMOXICILLIN-POT CLAVULANATE 16982487283 No Longer Active Yoli Mercado MD PhD Active LEVAQUIN 500 MG ORAL TABLET 1 pill by mouth daily 2013 LEVOFLOXACIN 55389598308 No Longer Active Yoli Mercado MD PhD Acti ve AMLODIPINE BESYLATE 5 MG ORAL TABLET 1 tablet by mouth daily for blood pressure AMLODIPINE BESYLATE 38869239590 Active Bertrand Patel DO Active MICARDIS 80 MG ORAL TABLET 1 tablet daily for blood pressure 07/30 TELMISARTAN 54476895513 Active Bertrand Patel DO Active MICARDIS HCT 80-12.5 MG ORAL TABLET 1 qd TELMISARTAN-HCTZ 55360052304 No Longer Active Bertrand Patel DO Active CINNAMON ALPHA LIPOIC AC CMPLX CAPSULE by mouth twice a day in AM by mouth twice a day in PM ALPHA LIPOIC [id number] CA PS 03287457645 No Longer Active Bertrand Patel DO Active AZITHROMYCIN 500 MG INTRAVENOUS SOLUTION RECONSTITUTED 1 po q da y AZITHROMYCIN 75701488990 No Longer Active Bertrand Patel DO A ctive CYMBALTA 30 MG ORAL CAPSULE DELAYED RELEASE PARTICLES 1 cap by mouth daily DULOXETINE HCL 81658386589 No Longer Active Bertrand marquez DO Active CYMBALTA 60 MG ORAL CAPSULE DELAYED RELEASE PARTICLES 1 cap by mouth daily DULOXETINE HCL 08406935432 Active Bertrand Patel DO Active WELLBUTRIN 75 MG ORAL TABLET 2 times daily BUPR OPION HCL 60879438823 No Longer Active Bertrand Patel DO Active PROAIR HFA 108 (90 Base) MCG/ACT INHALATION AEROSOL SO LUTION take one to two puffs po Q4-6 hour prn cough and shortness of breath ALBUTEROL SULFATE 93289635188 Active Silvia Arnold APRN Active AZITHROMYCIN 250 MG ORAL TABLET take 2 po today then take 1 po days 2-5 AZITHROMYCIN 49103240446 No Longer Active Adolfo OSORIO Active PERMETHRIN 5 % EXTERNAL CREAM apply neck to toes tonig ht and then rinse off in morning. repeat at 7 days PERMETHRIN 13672590869 No Longer Active Adolfo OSORIO Active AMOXICILLIN 500 MG ORAL CAPSULE 2 po BID x 10 days 201 07/15/00 AMOXICILLIN 42690239016 No Longer Active Yoli Meracdo MD PhD Acti ve ALPRAZOLAM 0.5 MG ORAL TABLET 1 tab by mouth tid ALPRAZOLAM 37454419737 Active Nitza Mullins LPN Active INSUPEN ULTRAFIN 31G X 6 MM USE DIRECTED INSULIN PEN NEEDLE 85560424708 No Longer Active Bertrand Patel DO Active TRANSDERM-SCOP (1.5 MG) 1 MG/3DAYS TRANSDERMAL PATCH 7 2 HOUR 1 patch applied behind ear q 3 day SCOPOLAMINE BASE 29036738545 No Lo nger Active Bertrand Patel DO Active MACRODANTIN 100 MG ORAL CAPSULE one p.o. b.i.d. x2 weeks NITROFURANTOIN MACROCRYSTAL 55096625353 No Longer Active Bertrand Patel DO Active MACRODANTIN 100 MG ORAL CAPSULE one p.o. b.i.d. x2 weeks MACRODANTIN 100 MG ORAL CAPSULE 5321419 NITROFURANTOIN MACROCRYSTAL Inactive TRANSDERM-SCOP (1.5 MG) 1 [...] days PERMETHRIN 5 % EXTER NAL CREAM 588940 PERMETHRIN Inactive WELLBUTRIN 75 MG ORAL TABLET 2 times daily WELLBUTRIN 75 MG ORAL TABLET 363467 BUPROPION HCL Inactive CYMBALTA 30 MG ORAL CAPSULE DELAYED RELEASE PARTICLES 1 cap by mouth daily CYMBALTA 30 MG ORAL CAPSULE DELAYED RELE ASE PARTICLES 897815 DULOXETINE HCL Inactive AZITHROMYCIN 500 MG INTRAVENOUS SOLUTION RECONSTITUTED 1 po q da y AZITHROMYCIN 500 MG INTRAVENOUS SOLUTION RECONSTITUTED 47750 203025 AZITHROMYCIN Inactive CINNAMON ALPHA LIPOIC AC CMPLX CAPSULE by mouth twice a day in AM by mouth twice a day in PM CINNAMON ALPHA LIPOIC AC CMPLX CAPSULE ALPHA LIPOIC [id number] CAPS Inactive MICARDIS HCT 80-12.5 MG ORAL TABLET 1 qd 07/30 MICARDIS HCT 80-12.5 MG ORAL TABLET 416538 TELMISARTAN-HCTZ Inactive PRAVASTATIN SODIUM 20 MG ORAL TABLET 1 tablet by mouth daily at bedtime PRAVASTATIN SODIUM 20 MG ORAL TABLET 640057 PRAVASTATIN SODIUM Inactive FUROSEMIDE 20 MG ORAL TABLET 1 pill by mouth daily if needed for edema FUROSEMIDE 20 MG ORAL TABLET 135910 FUROSEMIDE Inactive METFORMIN HCL 500 MG ORAL TABLET 1 bid METFORMIN HCL 500 MG ORAL TABLET 472282 METFORMIN HCL Inactive B-12 1000 MCG ORAL CAPSULE 1 tab daily B -12 1000 MCG ORAL CAPSULE CYANOCOBALAMIN Inactive VITAMIN E 200 UNIT ORAL CAPSULE 1 cap po qd 1 VITAMIN E 200 UNIT ORAL CAPSULE 5850572 VITAMIN E Inactive [facility] MELATONIN 5-10 MG ORAL TABLET EXTENDED RELEASE Jair e one by mouth daily at bedtime [facility] MELATONIN 5-10 M G ORAL TABLET EXTENDED RELEASE MELATONIN-PYRIDOXINE Inactive LORTAB 7.5-500 MG ORAL TABLET take one po Q6 hours 201 09/12/01 LORTAB 7.5-500 MG ORAL TABLET 514068 HYDROCODONE-ACETAMINOPHEN Inactive AZITHROMYCIN 250 MG ORAL TABLET Take 2 tabs po today then 1 tab po daily AZITHROMYCIN 250 MG ORAL TABLET 015093 AZITHROMY BERNARDO Inactive SYMBICORT 160-4.5 MCG/ACT INHALATION AEROSOL 2 puffs BID 9 SYMBICORT 160-4.5 MCG/ACT INHALATION AEROSOL BUDESONIDE-FORM OTEROL FUMARATE Inactive ALBUTEROL SULFATE (2.5 MG/3ML) 0.083% INHALATION NEBUL IZATION SOLUTION one vial per nebulizer every 4-6 hours as needed ALBUTEROL SULFATE (2.5 MG/3ML) 0.083% INHALATION NEBULIZATION SOLUTION 455448 ALBUTER OL SULFATE Inactive NEBULIZER use as directed NEBULIZER NEBULI ZERS Inactive TESSALON PERLES 100 MG ORAL CAPSULE 1 tablet by mouth 3 times da juan pablo TESSALON PERLES 100 MG ORAL CAPSULE 431806 BENZONATATE Inactive CYCLOBENZAPRINE HCL 10 MG ORAL TABLET Take 1 tab TID PRN for mus triston pain CYCLOBENZAPRINE HCL 10 MG ORAL TABLET 576519 CYCLOBENZA ANUJA HCL Inactive AUGMENTIN 875-125 MG ORAL TABLET 1 po BID x 10 days 20 18/04/06 AUGMENTIN 875-125 MG ORAL TABLET 197556 AMOXICILLIN-POT CLAVULANATE Inactive BACTROBAN 2 % EXTERNAL CREAM Apply to affected area BID for up to 10 days BACTROBAN 2 % EXTERNAL CREAM 383412 MUPIROCIN CA LCIUM Inactive VITAMIN D3 08702 UNIT ORAL CAPSULE 1 pill Week x 4 mo nths for vitamin D deficiency/osteoporosis VITAMIN D3 96952 UNIT ORAL CAPSULE CHOLECALCIFEROL Inactive BENZONATATE 200 MG ORAL CAPSULE 1 three times a day as neede d for cough BENZONATATE 200 MG ORAL CAPSULE 209041 BENZONATA TE Inactive ZITHROMAX Z-MARTIN 250 MG ORAL TABLET 2 today and then 1 daily for 4 days ZITHROMAX Z-MARTIN 250 MG ORAL TABLET 015756 AZITHR OMYCIN Inactive ADDERALL 10 MG ORAL TABLET 1 tab twice daily 2 ADDERALL 10 MG ORAL TABLET 952606 AMPHETAMINE-DEXTROAMPHETAMINE Inactive AMOXICILLIN 500 MG ORAL CAPSULE 2 po BID x 10 days 201 07/15/00 AMOXICILLIN 500 MG ORAL CAPSULE 582475 AMOXICILLIN Inactive AZITHROMYCIN 250 MG ORAL TABLET take 2 po today then take 1 po days 2-5 AZITHROMYCIN 250 MG ORAL TABLET 308575 AZITHROMY BERNARDO Inactive LEVAQUIN 500 MG ORAL TABLET 1 pill by mouth daily 2013 LEVAQUIN 500 MG ORAL TABLET 065441 LEVOFLOXACIN Inactive AUGMENTIN 875-125 MG ORAL TABLET 1 pill by mouth twice daily 201 09/10/00 AUGMENTIN 875-125 MG ORAL TABLET 310121 AMOXICILLIN-POT CLAVULANATE Inactive AUGMENTIN 875-125 MG ORAL TABLET 1 po BID x 10 days 19/07/13 AUGMENTIN 875-125 MG ORAL TABLET 685373 AMOXICILLIN-POT CLAVULANATE Inactive PREDNISONE 20 MG ORAL TABLET take 3 tabs daily for 3 d ays, 2 tabs daily for 3 days, 1 tab daily for 3 days, 1/2 tab daily for 3 days 08/02 PREDNISONE 20 MG ORAL TABLET 067840 PREDNISONE Inactive CIPRO 500 MG ORAL TABLET 1 tablet by mouth twice daily CIPRO 500 MG ORAL TABLET 346371 CIPROFLOXACIN HCL Inactive Vital Signs Date Name [...] HGBA1C - Chemistry sodium, serum 143 mmol/L 379-691 9011/01/02 carbon dioxide, venous blood 31.7 mmol/L 21.0-32 [...] 0-19 Encounters Code Encounter Date Provider Facility CPT-19061 Level 4 Est. Patient 15:33:35 WAYS OPERATOR Bertrand marquez [facility] CPT-84522 Level 4 Est. Patient 12:31:54 CDT Bertrand marquez [facility] CPT-67350 Level 3 Est. Patient 11:27:00 WAYS OPERATOR Ike Deluna MD [facility] CPT-83499 Level 3 Est. Patient 08:50:57 WAYS OPERATOR Dangelo [employer] LAND [facility] CPT-42777 Level 3 Est. Patient 10:04:13 CDT Bertrand marquez [facility] CPT-49510 Level 4 Est. Patient 16:02:10 WAYS OPERATOR Dangelo [facility] [place] CPT-36260 Level 3 Est. Patient 13:04:54 WAYS OPERATOR Dangelo [facility]-86960 Level 3 Est. Patient 12:56:37 CDT Bertrand marquez [facility] CPT-77359 Level 3 Est. Patient 19:12:03 CDT Yoli tolbert MD PhD [facility] CPT-14492 Level 3 Est. Patient 14:36:01 CDT Yoli tolbert MD PhD [facility] CPT-27561 Level 2 Est. Patient 08:00:22 CDT Jcarlos dc MD [facility]-79822 Level 3 Est. Patient 19:06:55 CDT Bertrand marquez [facility] CPT-93154 Level 3 Est. Patient 10:08:23 WAYS OPERATOR Bertrand marquez [facility] CPT-11142 Level 3 Est. Patient 16:37:54 WAYS OPERATOR Bertrand marquez [facility] CPT-19582 Level 3 Est. Patient 11:31:59 WAYS OPERATOR Bertrand Jacklyn Lindsay marquez [facility] CPT-94260 Level 3 Est. Patient 10:20:08 CDT Adolfo villasenor [facility] CPT-74770 Level 3 Est. Patient 13:45:20 CDT Sanket buckley [facility] CPT-57181 Level 3 Est. Patient 12:51:06 CDT Adolfo villasenor [facility] CPT-37177 Level 3 Est. Patient 11:22:51 WAYS OPERATOR Yoli tolbert MD PhD [facility] CPT-00185 Level 3 Est. Patient 13:33:19 CDT Bertrand marquez [facility] Procedures Code Procedure Name Date Entry Date Standard Desc ription CPT-59585 Wound Culture - LAB USE ONLY 15:45:25 CDT 2 CPT-24387 Venipuncture Draw Fee 10:23:01 CDT CPT-J0696 Rocephin 1000 mg (Ceftriaxone) 16:20:30 WAYS OPERATOR CPT-84070 Abx/Therapy Injection 16:20:29 WAYS OPERATOR CPT-J0696 Rocephin 1gm Inj Solr 15:51:59 WAYS OPERATOR CPT-77353 Chest 2V Frontal and Lat 15:20:28 WAYS OPERATOR 07/22 CPT-44934 Breathing Tx 14:51:55 WAYS OPERATOR CPT-69971 Breathing Tx 09:57:16 WAYS OPERATOR CPT-91511 Knee comp 4/> V 11:58:06 WAYS OPERATOR
--- OUTSIDE RECORDS SUMMARY | 2019-11-13 10:09 | XMS REPORT | Clinical Summary ---
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 sinusitis, unspecified Fatigue 780.79 Active Silvia Arnold APRN Other malaise and fatigue Bronchitis acute with bronchospasm 466.0 Active 2 Silvia Arnold APRN Acute bronchitis Narcolepsy 347.00 Active Bertrand Patel DO Narcolepsy without cataplexy Animal bite 919.8 Active Silvia Arnold APRN Other and unspecified superficial injury of other, multiple, and unspecified sites, without mention of infection HEALTH SCREENING ICD-V70.0 Inactive Yoli sabillon MD [...] Generic Name NDC Status Provider Patient Instruction CIPRO 500 MG TAB 1 tablet by mouth twice daily CIPROFLOXACIN HCL 48104209621 No Longer Active Adriana Bender LPN Active AUGMENTIN 875-125 MG TAB 1 po BID x 10 days AMOXICILLIN- POT CLAVULANATE 28410447628 No Longer Active Adriana Bender LPN Active BACTROBAN 2 % CREAM Apply to affected area BID for up to 10 days 20 18/03/27 MUPIROCIN CALCIUM 29311824686 Active Silvia Arnold APRN Act jairo MODAFINIL 200 MG ORAL TABS Take 1/2 tab po in the am and 1/2 tab po at noon MODAFINIL 34734847905 Active Silvia Arnold APRN Active CYCLOBENZAPRINE HCL 10 MG TABS Take 1 tab TID PRN for muscle pain CYCLOBENZAPRINE HCL 83922855868 No Longer Active Bertrand Patel DO Ac tive TESSALON PERLES 100 MG CAP 1 tablet by mouth 3 times daily 07/07 BENZONATATE 53210390804 No Longer Active Bertrand Patel DO Ac tive NEBULIZER MISC use as directed NEBULIZERS 650027 94009 No Longer Active Bertrand Patel DO Active ALBUTEROL SULFATE 0.083 % NEBU SOLN one vial per nebul izer every 4-6 hours as needed ALBUTEROL SULFATE 38778784191 No Longer Active Bertrand Patel DO Active SYMBICORT 160-4.5 MCG/ACT AERO 2 puffs BID BUDESONIDE- FORMOTEROL FUMARATE 69848889130 No Longer Active Bertrand Patel DO Ac tive PREDNISONE 20 MG TAB take 3 tabs daily for 3 days , 2 tabs daily for 3 days, 1 tab daily for 3 days, 1/2 tab daily for 3 days P REDNISONE 76762391670 No Longer Active Silvia Arnold APRN Active AZITHROMYCIN 250 MG ORAL TABS Take 2 tabs po today then 1 ta b po daily AZITHROMYCIN 13504531554 No Longer Active Silvia gavin APRN Active AUGMENTIN 875-125 MG TAB 1 po BID x 10 days AMOXICILLIN- POT CLAVULANATE 08791561251 No Longer Active Adriana Bender LPN Active CHEWABLE CALCIUM 500-200-40 MG-UNT-MCG ORAL CHEW 1 chew tab bid 201 11/03/03 CALCIUM-VITAMIN D-VITAMIN K 30211507713 Active Silvia Arnold APRN Active EQ COMPLETE MULTIVIT ADULT 50+ ORAL TABS 1 tab po bid MULTIPLE VITAMINS-MINERALS 32274846531 Active Silvia Arnold APRN Act jairo HYDROCODONE-ACETAMINOPHEN 7.5-325 MG TABS TAKE ONE TAB EVERY 6 HOURS BY MOUTH NEEDED FOR PAIN HYDROCODONE-ACETAMINOPHEN 48949609034 Acti ve Lizy العلي Active LORTAB 7.5-500 MG TABS take one po Q6 hours HYDROCODONE-ACETAMINOPHEN No Longer Active Nirmal Robbins RN Active [facility] MELATONIN 5-10 MG CR-TABS Take one by mouth daily at bedtime MELATONIN-PYRIDOXINE 89405656077 No Longer Active Bertrand Patel DO Active VITAMIN E 200 UNIT CAPS 1 cap po qd VITAMIN E 316 90273758 No Longer Active Bertrand Patel DO Active B-12 1000 MCG CAPS 1 tab daily CYANOCOBALAMIN 31 280219358 No Longer Active Bertrand Patel DO Active METFORMIN HCL 500 MG TABS 1 bid METFORMIN HCL 61827841234 No Longer Active Bertrand Patel DO Active FUROSEMIDE 20 MG TABS 1 pill by mouth daily if needed for edema FUROSEMIDE 84347165486 No Longer Active Bertrand Patel DO Act jairo PRAVASTATIN SODIUM 20 MG TABS 1 tablet by mouth daily at bedtime PRAVASTATIN SODIUM 79415944091 No Longer Active Bertrand Patel DO Active AUGMENTIN 875-125 MG TABS 1 pill by mouth twice daily AMOXICILLIN-POT CLAVULANATE 63362809251 No Longer Active Yoli Mercado MD PhD Active LEVAQUIN 500 MG TABS 1 pill by mouth daily LEVO FLOXACIN 97331213144 No Longer Active Yoli Mercado MD PhD Active AMLODIPINE BESYLATE 5 MG TABS 1 tablet by mouth daily for bl ood pressure AMLODIPINE BESYLATE 91470679472 Active Keysha Jones MA Active MICARDIS 80 MG TABS 1 tablet daily for blood pressure TELMISARTAN 01294520026 Active Keysha Jones MA Active MICARDIS HCT 80-12.5 MG TABS 1 qd TELMISARTA N-HCTZ 85286284520 No Longer Active Bertrand Patel DO Active CINNAMON ALPHA LIPOIC AC CMPLX CAPS by mouth twice a d ay in AM by mouth twice a day in PM ALPHA LIPOIC [id number] CAPS 250077 69581 No Longer Active Bertrand Patel DO Active AZITHROMYCIN 500 MG SOLR 1 po q day AZITHROMYCI N 64981850225 No Longer Active Bertrand Patel DO Active CYMBALTA 30 MG CPEP 1 cap by mouth daily DULOXE CATHI HCL 47878051600 No Longer Active Bertrand Patel DO Active CYMBALTA 60 MG CPEP 1 cap by mouth daily DULOXE CATHI HCL 47739210001 Active Keysha Jones MA Active WELLBUTRIN 75 MG TABS 2 times daily BUPROPION H CL 23549716238 No Longer Active Bertrand Patel DO Active PROAIR HFA 108 (90 BASE) MCG/ACT AERS take one to two puffs po Q4-6 hour prn cough and shortness of breath ALBUTEROL SULFATE 8450321417 2 Active Silvia Arnold DE ICER FINISHER Active AZITHROMYCIN 250 MG TABS take 2 po today then take 1 po days 2-5 AZITHROMYCIN 51049672122 No Longer Active Adolfo OSORIO Active PERMETHRIN 5 % CREA apply neck to toes tonight a nd then rinse off in morning. repeat at 7 days PERMETHRIN 45134763531 No Longer Active Adolfo OSORIO Active AMOXICILLIN 500 MG CAPS 2 po BID x 10 days AMOX ICILLIN 34080482476 No Longer Active Yoli Mercado MD PhD Active ALPRAZOLAM 0.5 MG TAB 1 tab by mouth tid ALPRAZOL AM 17866400244 Active Nitza Mullins RPT,RMA Active INSUPEN ULTRAFIN 31G X 6 MM MISC USE DIRECTED 03/04 INSULIN PEN NEEDLE 09470479679 No Longer Active Bertrand Patel DO Active TRANSDERM-SCOP 1.5 MG PT72 1 patch applied behind ear q 3 day 20 04/13/28 SCOPOLAMINE BASE 49914105324 No Longer Active Bertrand Patel DO Active MACRODANTIN 100 MG CAPS one p.o. b.i.d. x2 weeks 03/04 NITROFURANTOIN MACROCRYSTAL 72869578238 No Longer Active Bertrand Patel DO Active MACRODANTIN 100 MG CAPS one p.o. b.i.d. x2 weeks 03/04 MACRODANTIN 100 MG CAPS 5258756 NITROFURANTOIN MACROCRYSTAL Inactive TRANSDERM-SCOP 1.5 MG PT72 [...] at 7 days PERMETHRIN 5 % CREA 038785 PERMETHRIN Inactive WELLBUTRIN 75 MG TABS 2 times daily WELLBUTRIN 75 MG TABS BUPROPION HCL Inactive CYMBALTA 30 MG CPEP 1 cap by mouth daily CYMBALTA 30 MG CPEP 151846 DULOXETINE HCL Inactive AZITHROMYCIN 500 MG SOLR 1 po q day ALTA THROMYCIN 500 MG SOLR 69324757483 AZITHROMYCIN Inactive CINNAMON ALPHA LIPOIC AC CMPLX CAPS by mouth twice a d ay in AM by mouth twice a day in PM CINNAMON ALPHA LIPOIC AC CMPLX CAPS ALPHA LIPOIC [id number] CAPS Inactive MICARDIS HCT 80-12.5 MG TABS 1 qd MICARDI S HCT 80-12.5 MG TABS 381373 TELMISARTAN-HCTZ Inactive PRAVASTATIN SODIUM 20 MG TABS 1 tablet by mouth daily at bedtime PRAVASTATIN SODIUM 20 MG TABS 473369 PRAVASTATIN SODIUM Inactive FUROSEMIDE 20 MG TABS 1 pill by mouth daily if needed for edema FUROSEMIDE 20 MG TABS 535938 FUROSEMIDE Inactive METFORMIN HCL 500 MG TABS 1 bid METFORMIN HCL 500 MG TABS 367763 METFORMIN HCL Inactive B-12 1000 MCG CAPS 1 tab daily B-12 1000 MCG CAP S CYANOCOBALAMIN Inactive VITAMIN E 200 UNIT CAPS 1 cap po qd VITAMIN E 2 00 UNIT CAPS 5189228 VITAMIN E Inactive [facility] MELATONIN 5-10 MG CR-TABS Take one by mouth daily at bedtime [facility] MELATONIN 5-10 MG CR-TABS MELATONIN-PYRIDOXI NE Inactive LORTAB 7.5-500 MG TABS take one po Q6 hours LORTAB 7.5-500 MG TABS HYDROCODONE-ACETAMINOPHEN Inactive AZITHROMYCIN 250 MG ORAL TABS Take 2 tabs po today then 1 ta b po daily AZITHROMYCIN 250 MG ORAL TABS 7874658 AZITHROMYCI N Inactive SYMBICORT 160-4.5 MCG/ACT AERO 2 puffs BID SYMBICORT 160- 4.5 MCG/ACT AERO BUDESONIDE-FORMOTEROL FUMARATE Inactive ALBUTEROL SULFATE 0.083 % NEBU SOLN one vial per nebul izer every 4-6 hours as needed ALBUTEROL SULFATE 0.083 % NEBU SOLN 79227 8 ALBUTEROL SULFATE Inactive NEBULIZER MISC use as directed NEBULIZER MISC NEBULIZERS Inactive TESSALON PERLES 100 MG CAP 1 tablet by mouth 3 times daily 07/07 TESSALON PERLES 100 MG CAP 959702 BENZONATATE Inact jairo CYCLOBENZAPRINE HCL 10 MG TABS Take 1 tab TID PRN for muscle pain CYCLOBENZAPRINE HCL 10 MG TABS 107018 CYCLOBENZAPRINE HCL Inactive AUGMENTIN 875-125 MG TAB 1 po BID x 10 days AUGMENTIN 875- 125 MG TAB 866606 AMOXICILLIN-POT CLAVULANATE Inactive AMOXICILLIN 500 MG CAPS 2 po BID x 10 days AMOXICILLIN 500 MG CAPS 481303 AMOXICILLIN Inactive AZITHROMYCIN 250 MG TABS take 2 po today then take 1 po days 2-5 AZITHROMYCIN 250 MG TABS 9262944 AZITHROMYCIN Inactiv e LEVAQUIN 500 MG TABS 1 pill by mouth daily LEVAQUIN 500 MG TABS 936189 LEVOFLOXACIN Inactive AUGMENTIN 875-125 MG TABS 1 pill by mouth twice daily AUGMENTIN 875-125 MG TABS 667917 AMOXICILLIN-POT CLAVULANATE Inacti ve AUGMENTIN 875-125 MG TAB 1 po BID x 10 days AUGMENTIN 875- 125 MG TAB 471472 AMOXICILLIN-POT CLAVULANATE Inactive PREDNISONE 20 MG TAB take 3 tabs daily for 3 days , 2 tabs daily for 3 days, 1 tab daily for 3 days, 1/2 tab daily for 3 days PREDNISONE 20 MG TAB 068635 PREDNISONE Inactive CIPRO 500 MG TAB 1 tablet by mouth twice daily CIPRO 500 MG TAB 124040 CIPROFLOXACIN HCL Inactive Vital Signs Date Name [...] 5.8 % 4.3-6.0 cholesterol, serum 200 mg/dL 068-060 0681/07/22 triglyceride, serum, fasting 56 mg/dL 30-200 HDL cholesterol, serum 80 mg/dL 32-96 LDL cholesterol, serum 109 mg/dL 0-130 albumin/creatinine ratio, urine < 30 mg/g mg/g{creat} 0-2 9 TSH 1.16 m[iU]/mL 0.36-3.74 sodium, serum 142 mmol/L 393-665 8756/07/22 carbon dioxide, venous blood 33.1 mmol/L 21.0-32 [...] Negative;Positive Encounters Code Encounter Date Provider Facility CPT-40703 Level 3 Est. Patient 08:50:57 UTILITY ARBORIST Silvia And dmitriy [facility] CPT-09669 Level 3 Est. Patient 10:04:13 CDT Bertrand marquez [facility] CPT-62756 Level 4 Est. Patient 16:02:10 UTILITY ARBORIST Silvia And dmitriy [facility] CPT-95528 Level 3 Est. Patient 13:04:54 UTILITY ARBORIST Dangelo [facility] CPT-53342 Level 3 Est. Patient 12:56:37 CDT Bertrand marquez [facility] CPT-12257 Level 3 Est. Patient 19:12:03 CDT Yoli tolbert MD PhD [facility] CPT-80520 Level 3 Est. Patient 14:36:01 CDT Yoli tolbert MD PhD [facility] CPT-65499 Level 2 Est. Patient 08:00:22 CDT Jcarlos dc MD [facility] CPT-10425 Level 3 Est. Patient 19:06:55 CDT Bertrand marquez [facility] CPT-76702 Level 3 Est. Patient 10:08:23 UTILITY ARBORIST Bertrand marquez [facility] CPT-44283 Level 3 Est. Patient 16:37:54 UTILITY ARBORIST Bertrand marquez [facility] CPT-26196 Level 3 Est. Patient 11:31:59 UTILITY ARBORIST Bertrand marquez [facility] CPT-63347 Level 3 Est. Patient 10:20:08 CDT Adolfo villasenor [facility] CPT-62409 Level 3 Est. Patient 13:45:20 CDT Sanket buckley [facility] CPT-48518 Level 3 Est. Patient 12:51:06 CDT Adolfo villasenor [facility] CPT-58487 Level 3 Est. Patient 11:22:51 UTILITY ARBORIST Yoli tolbert MD [facility] CPT-32380 Level 3 Est. Patient 13:33:19 CDT Bertrand marquez [facility] Procedures Code Procedure Name Date Entry Date Standard Desc ription CPT-33693 Wound Culture - LAB USE ONLY 15:45:25 CDT 2 CPT-27163 Venipuncture Draw Fee 10:23:01 CDT CPT-J0696 Rocephin 1000 mg (Ceftriaxone) 16:20:30 UTILITY ARBORIST CPT-88619 Abx/Therapy Injection 16:20:29 UTILITY ARBORIST CPT-J0696 Rocephin 1gm Inj Solr 15:51:59 UTILITY ARBORIST CPT-12403 Chest 2V Frontal and Lat 15:20:28 UTILITY ARBORIST 07/22 CPT-12767 Breathing Tx 14:51:55 UTILITY ARBORIST CPT-02639 Breathing Tx 09:57:16 UTILITY ARBORIST CPT-83247 Knee comp 4/> V 11:58:06 UTILITY ARBORIST
--- OUTSIDE RECORDS SUMMARY | 2019-11-13 10:09 | XMS REPORT | Clinical Summary ---
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 sinusitis, unspecified Fatigue 780.79 Active Silvia Arnold [...] and 1/2 tab po at noon MODAFINIL 40948702164 Active Keysha Jones MA Active CYCLOBENZAPRINE HCL 10 MG TABS Take 1 tab TID PRN for muscle pain CYCLOBENZAPRINE HCL 47080448898 No Longer Active Bertrand Rowan tive TESSALON PERLES 100 MG CAP 1 tablet by mouth 3 times daily 07/07 BENZONATATE 49645196839 No Longer Active Bertrand Patel DO Ac tive NEBULIZER MISC use as directed NEBULIZERS 469767 80821 No Longer Active Bertrand Patel DO Active ALBUTEROL SULFATE 0.083 % NEBU SOLN one vial per nebul izer every 4-6 hours as needed ALBUTEROL SULFATE 65120327401 No Longer Active Bertrand Patel DO Active SYMBICORT 160-4.5 MCG/ACT AERO 2 puffs BID BUDESONIDE- FORMOTEROL FUMARATE 29685657853 No Longer Active Bertrand Patel DO Ac tive PREDNISONE 20 MG TAB take 3 tabs daily for 3 days , 2 tabs daily for 3 days, 1 tab daily for 3 days, 1/2 tab daily for 3 days P REDNISONE 41838863317 No Longer Active Silvia Arnold APRN Active AZITHROMYCIN 250 MG ORAL TABS Take 2 tabs po today then 1 ta b po daily AZITHROMYCIN 91310669576 No Longer Active Silvia Jorge gavin PARACHUTE/COMBATANT DIVER OFFICER Active AUGMENTIN 875-125 MG TAB 1 po BID x 10 days AMOXICILLIN- POT CLAVULANATE 85922027225 No Longer Active Adriana Bender LPN Active CHEWABLE CALCIUM 500-200-40 MG-UNT-MCG ORAL CHEW 1 chew tab bid 201 11/03/03 CALCIUM-VITAMIN D-VITAMIN K 45639367674 Active Silvia Arnold APRN Active EQ COMPLETE MULTIVIT ADULT 50+ ORAL TABS 1 tab po bid MULTIPLE VITAMINS-MINERALS 05214945520 Active Silvia Arnold APRN Act jaior HYDROCODONE-ACETAMINOPHEN 7.5-325 MG TABS TAKE ONE TAB EVERY 6 HOURS BY MOUTH NEEDED FOR PAIN HYDROCODONE-ACETAMINOPHEN 47416684763 Acti ve Bertrand Patel DO Active LORTAB 7.5-500 MG TABS take one po Q6 hours HYDROCODONE-ACETAMINOPHEN No Longer Active Nirmal Robbins RN Active [facility] MELATONIN 5-10 MG CR-TABS Take one by mouth daily at bedtime MELATONIN-PYRIDOXINE 43633496792 No Longer Active Bertrand Patel DO Active VITAMIN E 200 UNIT CAPS 1 cap po qd VITAMIN E 316 87788644 No Longer Active Bertrand Patel DO Active B-12 1000 MCG CAPS 1 tab daily CYANOCOBALAMIN 31 752286015 No Longer Active Bertrand Patel DO Active METFORMIN HCL 500 MG TABS 1 bid METFORMIN HCL 03753560595 No Longer Active Bertrand W Jorge DO Active FUROSEMIDE 20 MG TABS 1 pill by mouth daily if needed for edema FUROSEMIDE 69301817406 No Longer Active Bertrand Patel DO Act jairo PRAVASTATIN SODIUM 20 MG TABS 1 tablet by mouth daily at bedtime PRAVASTATIN SODIUM 82794779063 No Longer Active Bertrand Patel DO Active AUGMENTIN 875-125 MG TABS 1 pill by mouth twice daily AMOXICILLIN-POT CLAVULANATE 52531298811 No Longer Active Yoli Mercado MD PhD Active LEVAQUIN 500 MG TABS 1 pill by mouth daily LEVO FLOXACIN 38085243493 No Longer Active Yoli Mercado MD PhD Active AMLODIPINE BESYLATE 5 MG TABS 1 tablet by mouth daily for bl ood pressure AMLODIPINE BESYLATE 85076340537 Active Nitza Dorman PT,RMA Active MICARDIS 80 MG TABS 1 tablet daily for blood pressure TELMISARTAN 31795730262 Active Nitza Mullins RPT,RMA Active MICARDIS HCT 80-12.5 MG TABS 1 qd TELMISARTA N-HCTZ 54605716156 No Longer Active Bertrand Patel DO Active CINNAMON ALPHA LIPOIC AC CMPLX CAPS by mouth twice a d ay in AM by mouth twice a day in PM ALPHA LIPOIC [id number] CAPS 170037 26821 No Longer Active Bertrand Patel DO Active AZITHROMYCIN 500 MG SOLR 1 po q day AZITHROMYCI N 20544612995 No Longer Active Bertrand Patel DO Active CYMBALTA 30 MG CPEP 1 cap by mouth daily DULOXE CATHI HCL 02327325662 No Longer Active Bertrand Patel DO Active CYMBALTA 60 MG CPEP 1 cap by mouth daily DULOXE CATHI HCL 87118948549 Active Nitza Mullins RPT,RMA Active WELLBUTRIN 75 MG TABS 2 times daily BUPROPION H CL 60505450227 No Longer Active Bertrand W Jorge DO Active PROAIR HFA 108 (90 BASE) MCG/ACT AERS take one to two puffs po Q4-6 hour prn cough and shortness of breath ALBUTEROL SULFATE 8024674799 2 Active Silvia Arnold PARACHUTE/COMBATANT DIVER OFFICER Active AZITHROMYCIN 250 MG TABS take 2 po today then take 1 po days 2-5 AZITHROMYCIN 27118745007 No Longer Active Adolfo OSORIO Active PERMETHRIN 5 % CREA apply neck to toes tonight a nd then rinse off in morning. repeat at 7 days PERMETHRIN 04367129090 No Longer Active Adolfo OSORIO Active AMOXICILLIN 500 MG CAPS 2 po BID x 10 days AMOX ICILLIN 53514538345 No Longer Active Yoli Mercado MD PhD Active ALPRAZOLAM 0.5 MG TAB 1 tab by mouth tid ALPRAZOL AM 82239966704 Active Nitza Mullins RPT,RMA Active INSUPEN ULTRAFIN 31G X 6 MM MISC USE DIRECTED 03/04 INSULIN PEN NEEDLE 39183479986 No Longer Active Bertrand Patel DO Active TRANSDERM-SCOP 1.5 MG PT72 1 patch applied behind ear q 3 day 20 04/13/28 SCOPOLAMINE BASE 65482749375 No Longer Active Bertrand Patel DO Active MACRODANTIN 100 MG CAPS one p.o. b.i.d. x2 weeks 03/04 NITROFURANTOIN MACROCRYSTAL 39224005785 No Longer Active Bertrand Patel DO Active MACRODANTIN 100 MG CAPS one p.o. b.i.d. x2 weeks 03/04 MACRODANTIN 100 MG CAPS 6680461 NITROFURANTOIN MACROCRYSTAL Inactive TRANSDERM-SCOP 1.5 MG PT72 [...] at 7 days PERMETHRIN 5 % CREA 935985 PERMETHRIN Inactive WELLBUTRIN 75 MG TABS 2 times daily WELLBUTRIN 75 MG TABS BUPROPION HCL Inactive CYMBALTA 30 MG CPEP 1 cap by mouth daily CYMBALTA 30 MG CPEP 491937 DULOXETINE HCL Inactive AZITHROMYCIN 500 MG SOLR 1 po q day ALTA THROMYCIN 500 MG SOLR 06639848320 AZITHROMYCIN Inactive CINNAMON ALPHA LIPOIC AC CMPLX CAPS by mouth twice a d ay in AM by mouth twice a day in PM CINNAMON ALPHA LIPOIC AC CMPLX CAPS ALPHA LIPOIC [id number] CAPS Inactive MICARDIS HCT 80-12.5 MG TABS 1 qd MICARDI S HCT 80-12.5 MG TABS 520614 TELMISARTAN-HCTZ Inactive PRAVASTATIN SODIUM 20 MG TABS 1 tablet by mouth daily at bedtime PRAVASTATIN SODIUM 20 MG TABS 308792 PRAVASTATIN SODIUM Inactive FUROSEMIDE 20 MG TABS 1 pill by mouth daily if needed for edema FUROSEMIDE 20 MG TABS 591234 FUROSEMIDE Inactive METFORMIN HCL 500 MG TABS 1 bid METFORMIN HCL 500 MG TABS 126959 METFORMIN HCL Inactive B-12 1000 MCG CAPS 1 tab daily B-12 1000 MCG CAP S CYANOCOBALAMIN Inactive VITAMIN E 200 UNIT CAPS 1 cap po qd VITAMIN E 2 00 UNIT CAPS 5917766 VITAMIN E Inactive [facility] MELATONIN 5-10 MG CR-TABS Take one by mouth daily at bedtime [facility] MELATONIN 5-10 MG CR-TABS MELATONIN-PYRIDOXI NE Inactive LORTAB 7.5-500 MG TABS take one po Q6 hours LORTAB 7.5-500 MG TABS HYDROCODONE-ACETAMINOPHEN Inactive AZITHROMYCIN 250 MG ORAL TABS Take 2 tabs po today then 1 ta b po daily AZITHROMYCIN 250 MG ORAL TABS 7313143 AZITHROMYCI N Inactive SYMBICORT 160-4.5 MCG/ACT AERO 2 puffs BID SYMBICORT 160- 4.5 MCG/ACT AERO BUDESONIDE-FORMOTEROL FUMARATE Inactive ALBUTEROL SULFATE 0.083 % NEBU SOLN one vial per nebul izer every 4-6 hours as needed ALBUTEROL SULFATE 0.083 % NEBU SOLN 24842 8 ALBUTEROL SULFATE Inactive NEBULIZER MISC use as directed NEBULIZER MISC NEBULIZERS Inactive TESSALON PERLES 100 MG CAP 1 tablet by mouth 3 times daily 07/07 TESSALON PERLES 100 MG CAP 002194 BENZONATATE Inact jairo CYCLOBENZAPRINE HCL 10 MG TABS Take 1 tab TID PRN for muscle pain CYCLOBENZAPRINE HCL 10 MG TABS 424658 CYCLOBENZAPRINE HCL Inactive AMOXICILLIN 500 MG CAPS 2 po BID x 10 days AMOXICILLIN 500 MG CAPS 491618 AMOXICILLIN Inactive AZITHROMYCIN 250 MG TABS take 2 po today then take 1 po days 2-5 AZITHROMYCIN 250 MG TABS 2601788 AZITHROMYCIN Inactiv e LEVAQUIN 500 MG TABS 1 pill by mouth daily LEVAQUIN 500 MG TABS 049153 LEVOFLOXACIN Inactive AUGMENTIN 875-125 MG TABS 1 pill by mouth twice daily AUGMENTIN 875-125 MG TABS 203927 AMOXICILLIN-POT CLAVULANATE Inacti ve AUGMENTIN 875-125 MG TAB 1 po BID x 10 days AUGMENTIN 875- 125 MG TAB 453095 AMOXICILLIN-POT CLAVULANATE Inactive PREDNISONE 20 MG TAB take 3 tabs daily for 3 days , 2 tabs daily for 3 days, 1 tab daily for 3 days, 1/2 tab daily for 3 days PREDNISONE 20 MG TAB 655357 PREDNISONE Inactive Vital Signs Date Name Value [...] 5.8 % 4.3-6.0 cholesterol, serum 200 mg/dL 690-886 4640/07/22 triglyceride, serum, fasting 56 mg/dL 30-200 HDL cholesterol, serum 80 mg/dL 32-96 LDL cholesterol, serum 109 mg/dL 0-130 albumin/creatinine ratio, urine < 30 mg/g mg/g{creat} 0-2 9 TSH 1.16 m[iU]/mL 0.36-3.74 sodium, serum 142 mmol/L 229-861 5987/07/22 carbon dioxide, venous blood 33.1 mmol/L 21.0-32 [...] Negative;Positive Encounters Code Encounter Date Provider Facility CPT-61693 Level 3 Est. Patient 10:04:13 CDT Bertrand marquez [employer] [facility] CPT-09153 Level 4 Est. Patient 16:02:10 WELDER FABRICATOR Dangelo PARACHUTE/COMBATANT DIVER OFFICER Lizy [facility] CPT-14886 Level 3 Est. Patient 13:04:54 WELDER FABRICATOR Dangelo PARACHUTE/COMBATANT DIVER OFFICER [facility] CPT-99675 Level 3 Est. Patient 12:56:37 CDT Bertrand marquez [employer] Lizy [facility] CPT-09866 Level 3 Est. Patient 19:12:03 CDT Yoli tolbert MD [facility] CPT-80105 Level 3 Est. Patient 14:36:01 CDT Yoli tolbert MD [facility] CPT-18019 Level 2 Est. Patient 08:00:22 CDT Jcarlos dc MD [facility] CPT-85396 Level 3 Est. Patient 19:06:55 CDT Bertrand marquez [facility] CPT-95099 Level 3 Est. Patient 10:08:23 WELDER FABRICATOR Bertrand marquez [facility] CPT-66832 Level 3 Est. Patient 16:37:54 WELDER FABRICATOR Bertrand marquez [facility] CPT-80931 Level 3 Est. Patient 11:31:59 WELDER FABRICATOR Bertrand marquez [facility] CPT-86439 Level 3 Est. Patient 10:20:08 CDT Adolfo villasenor [facility] CPT-31103 Level 3 Est. Patient 13:45:20 CDT Sanket buckley [facility] CPT-19723 Level 3 Est. Patient 12:51:06 CDT Adolfo villasenor [facility] CPT-21826 Level 3 Est. Patient 11:22:51 WELDER FABRICATOR Yoli tolbert MD [facility] CPT-91299 Level 3 Est. Patient 13:33:19 CDT Bertrand marquez [facility] Procedures Code Procedure Name Date Entry Date Standard Desc ription CPT-50773 Venipuncture Draw Fee 10:23:01 CDT CPT-J0696 Rocephin 1000 mg (Ceftriaxone) 16:20:30 WELDER FABRICATOR CPT-92820 Abx/Therapy Injection 16:20:29 WELDER FABRICATOR CPT-J0696 Rocephin 1gm Inj Solr 15:51:59 WELDER FABRICATOR CPT-44086 Chest 2V Frontal and Lat 15:20:28 WELDER FABRICATOR 07/22 CPT-70164 Breathing Tx 14:51:55 WELDER FABRICATOR CPT-60510 Breathing Tx 09:57:16 WELDER FABRICATOR CPT-80316 Knee comp 4/> V 11:58:06 WELDER FABRICATOR
--- OUTSIDE RECORDS SUMMARY | 2019-11-13 10:10 | XMS REPORT | Clinical Summary ---
Author Author Admin, Enrique Adamson Organization [facility] Address Unknown Phone Unavailable Allergies, Adverse [...] day as needed for c ough BENZONATATE 29502518904 Active Ike Deluna MD Acti ve ZITHROMAX Z-MARTIN 250 MG TABS 2 today and then 1 daily for 4 days 201 12/01/06 AZITHROMYCIN 64888484317 Active Ike Deluna MD Active ADDERALL 10 MG ORAL TABS 1 tab twice daily AMPHETAMINE-DEXTROAMPHETAMINE 68659794432 Active Ike Deluna MD Active BACTROBAN 2 % CREAM Apply to affected area BID for up to 10 days MUPIROCIN CALCIUM 27069027172 No Longer Active Ike Deluna MD Active CIPRO 500 MG TAB 1 tablet by mouth twice daily CIPROFLOXACIN HCL 02538974553 No Longer Active Adriana Bender LPN Active AUGMENTIN 875-125 MG TAB 1 po BID x 10 days AMOXICILLIN- POT CLAVULANATE 07672481665 No Longer Active Adriana Bender LPN Active MODAFINIL 200 MG ORAL TABS Take 1/2 tab po in the am and 1/2 tab po at noon MODAFINIL 02826549651 Active Darlyn vega CYCLOBENZAPRINE HCL 10 MG TABS Take 1 tab TID PRN for muscle pain CYCLOBENZAPRINE HCL 02016414947 No Longer Active Bertrand Patel DO Ac tive TESSALON PERLES 100 MG CAP 1 tablet by mouth 3 times daily 07/07 BENZONATATE 95211037882 No Longer Active Bertrand Patel DO Ac tive NEBULIZER MISC use as directed NEBULIZERS 275622 30260 No Longer Active Bertrand Patel DO Active ALBUTEROL SULFATE 0.083 % NEBU SOLCammy one vial per nebul izer every 4-6 hours as needed ALBUTEROL SULFATE 06706574318 No Longer Active Bertrand Patel DO Active SYMBICORT 160-4.5 MCG/ACT AERO 2 puffs BID BUDESONIDE- FORMOTEROL FUMARATE 87970156531 No Longer Active Bertrand Patel DO Ac tive PREDNISONE 20 MG TAB take 3 tabs daily for 3 days , 2 tabs daily for 3 days, 1 tab daily for 3 days, 1/2 tab daily for 3 days P REDNISONE 33926650925 No Longer Active Silvia Arnold APRN Active AZITHROMYCIN 250 MG ORAL TABS Take 2 tabs po today then 1 ta b po daily AZITHROMYCIN 25816819184 No Longer Active Silvia gavin GIG TENDER Active AUGMENTIN 875-125 MG TAB 1 po BID x 10 days AMOXICILLIN- POT CLAVULANATE 94483677126 No Longer Active Adriana Bender LPN Active CHEWABLE CALCIUM 500-200-40 MG-UNT-MCG ORAL CHEW 1 chew tab bid 201 11/03/03 CALCIUM-VITAMIN D-VITAMIN K 05019067725 Active Silvia Arnold APRN Active EQ COMPLETE MULTIVIT ADULT 50+ ORAL TABS 1 tab po bid MULTIPLE VITAMINS-MINERALS 54016024623 Active Silvia Arnold APRN Act jairo HYDROCODONE-ACETAMINOPHEN 7.5-325 MG TABS TAKE ONE TAB EVERY 6 HOURS BY MOUTH NEEDED FOR PAIN HYDROCODONE-ACETAMINOPHEN 89184869115 Acti raheel العلي Active LORTAB 7.5-500 MG TABS take one po Q6 hours HYDROCODONE-ACETAMINOPHEN No Longer Active Nirmal Robbins RN Active [facility] MELATONIN 5-10 MG CR-TABS Take one by mouth daily at bedtime MELATONIN-PYRIDOXINE 70805278887 No Longer Active Bertrand Patel DO Active VITAMIN E 200 UNIT CAPS 1 cap po qd VITAMIN E 316 45854578 No Longer Active Bertrand Patel DO Active B-12 1000 MCG CAPS 1 tab daily CYANOCOBALAMIN 31 135885526 No Longer Active Bertrand Patel DO Active METFORMIN HCL 500 MG TABS 1 bid METFORMIN HCL 38344944394 No Longer Active Bertrand Patel DO Active FUROSEMIDE 20 MG TABS 1 pill by mouth daily if needed for edema FUROSEMIDE 74532868708 No Longer Active Bertrand Patel DO Act jairo PRAVASTATIN SODIUM 20 MG TABS 1 tablet by mouth daily at bedtime PRAVASTATIN SODIUM 99917857682 No Longer Active Bertrand Patel DO Active AUGMENTIN 875-125 MG TABS 1 pill by mouth twice daily AMOXICILLIN-POT CLAVULANATE 75793045626 No Longer Active Yoli Mercado MD PhD Active LEVAQUIN 500 MG TABS 1 pill by mouth daily LEVO FLOXACIN 71082033226 No Longer Active Yoli Mercado MD PhD Active AMLODIPINE BESYLATE 5 MG TABS 1 tablet by mouth daily for bl ood pressure AMLODIPINE BESYLATE 98495042246 Active Darlyn Mckinnonmerman Active MICARDIS 80 MG TABS 1 tablet daily for blood pressure TELMISARTAN 42677533011 Active Darlyn Nicolás Active MICARDIS HCT 80-12.5 MG TABS 1 qd TELMISARTA N-HCTZ 65198004804 No Longer Active Bertrand Patel DO Active CINNAMON ALPHA LIPOIC AC CMPLX CAPS by mouth twice a d ay in AM by mouth twice a day in PM ALPHA LIPOIC [id number] CAPS 366502 78221 No Longer Active Bertrand Patel DO Active AZITHROMYCIN 500 MG SOLR 1 po q day AZITHROMYCI N 04730936100 No Longer Active Bertrand Patel DO Active CYMBALTA 30 MG CPEP 1 cap by mouth daily DULOXE CATHI HCL 69130799591 No Longer Active Bertrand Patel DO Active CYMBALTA 60 MG CPEP 1 cap by mouth daily DULOXE CATHI HCL 64538716049 Active Keysha Jones MA Active WELLBUTRIN 75 MG TABS 2 times daily BUPROPION H CL 55990843968 No Longer Active Bertrand Patel DO Active PROAIR HFA 108 (90 BASE) MCG/ACT AERS take one to two puffs po Q4-6 hour prn cough and shortness of breath ALBUTEROL SULFATE 5540348489 2 Active Silvia Arnold APRN Active AZITHROMYCIN 250 MG TABS take 2 po today then take 1 po days 2-5 AZITHROMYCIN 61488892672 No Longer Active Adolfo OSORIO Active PERMETHRIN 5 % CREA apply neck to toes tonight a nd then rinse off in morning. repeat at 7 days PERMETHRIN 17280743493 No Longer Active Adolfo OSORIO Active AMOXICILLIN 500 MG CAPS 2 po BID x 10 days AMOX ICILLIN 66154223798 No Longer Active Yoli Mercado MD PhD Active ALPRAZOLAM 0.5 MG TAB 1 tab by mouth tid ALPRAZOL AM 08894453363 Active Nitza Mullins RPT,RMA Active INSUPEN ULTRAFIN 31G X 6 MM MISC USE DIRECTED 03/04 INSULIN PEN NEEDLE 37858866111 No Longer Active Bertrand Patel DO Active TRANSDERM-SCOP 1.5 MG PT72 1 patch applied behind ear q 3 day 20 04/13/28 SCOPOLAMINE BASE 15415533140 No Longer Active Bertrand Patel DO Active MACRODANTIN 100 MG CAPS one p.o. b.i.d. x2 weeks 03/04 NITROFURANTOIN MACROCRYSTAL 54946809981 No Longer Active Bertrand Patel DO Active MACRODANTIN 100 MG CAPS one p.o. b.i.d. x2 weeks 03/04 MACRODANTIN 100 MG CAPS 5740063 NITROFURANTOIN MACROCRYSTAL Inactive TRANSDERM-SCOP 1.5 MG PT72 [...] at 7 days PERMETHRIN 5 % CREA 089312 PERMETHRIN Inactive WELLBUTRIN 75 MG TABS 2 times daily WELLBUTRIN 75 MG TABS BUPROPION HCL Inactive CYMBALTA 30 MG CPEP 1 cap by mouth daily CYMBALTA 30 MG CPEP 447330 DULOXETINE HCL Inactive AZITHROMYCIN 500 MG SOLR 1 po q day ALTA THROMYCIN 500 MG SOLR 01740452540 AZITHROMYCIN Inactive CINNAMON ALPHA LIPOIC AC CMPLX CAPS by mouth twice a d ay in AM by mouth twice a day in PM CINNAMON ALPHA LIPOIC AC CMPLX CAPS ALPHA LIPOIC [id number] CAPS Inactive MICARDIS HCT 80-12.5 MG TABS 1 qd MICARDI S HCT 80-12.5 MG TABS 464544 TELMISARTAN-HCTZ Inactive PRAVASTATIN SODIUM 20 MG TABS 1 tablet by mouth daily at bedtime PRAVASTATIN SODIUM 20 MG TABS 658575 PRAVASTATIN SODIUM Inactive FUROSEMIDE 20 MG TABS 1 pill by mouth daily if needed for edema FUROSEMIDE 20 MG TABS 137703 FUROSEMIDE Inactive METFORMIN HCL 500 MG TABS 1 bid METFORMIN HCL 500 MG TABS 647017 METFORMIN HCL Inactive B-12 1000 MCG CAPS 1 tab daily B-12 1000 MCG CAP S CYANOCOBALAMIN Inactive VITAMIN E 200 UNIT CAPS 1 cap po qd VITAMIN E 2 00 UNIT CAPS 3105662 VITAMIN E Inactive [facility] MELATONIN 5-10 MG CR-TABS Take one by mouth daily at bedtime [facility] MELATONIN 5-10 MG CR-TABS MELATONIN-PYRIDOXI NE Inactive LORTAB 7.5-500 MG TABS take one po Q6 hours LORTAB 7.5-500 MG TABS HYDROCODONE-ACETAMINOPHEN Inactive AZITHROMYCIN 250 MG ORAL TABS Take 2 tabs po today then 1 ta b po daily AZITHROMYCIN 250 MG ORAL TABS 3132263 AZITHROMYCI N Inactive SYMBICORT 160-4.5 MCG/ACT AERO 2 puffs BID SYMBICORT 160- 4.5 MCG/ACT AERO BUDESONIDE-FORMOTEROL FUMARATE Inactive ALBUTEROL SULFATE 0.083 % NEBU SOLN one vial per nebul izer every 4-6 hours as needed ALBUTEROL SULFATE 0.083 % NEBU SOLN 85336 8 ALBUTEROL SULFATE Inactive NEBULIZER MISC use as directed NEBULIZER MISC NEBULIZERS Inactive TESSALON PERLES 100 MG CAP 1 tablet by mouth 3 times daily 07/07 TESSALON PERLES 100 MG CAP 215206 BENZONATATE Inact jairo CYCLOBENZAPRINE HCL 10 MG TABS Take 1 tab TID PRN for muscle pain CYCLOBENZAPRINE HCL 10 MG TABS 352884 CYCLOBENZAPRINE HCL Inactive AUGMENTIN 875-125 MG TAB 1 po BID x 10 days AUGMENTIN 875- 125 MG TAB 927338 AMOXICILLIN-POT CLAVULANATE Inactive BACTROBAN 2 % CREAM Apply to affected area BID for up to 10 days BACTROBAN 2 % CREAM 944173 MUPIROCIN CALCIUM Inactive AMOXICILLIN 500 MG CAPS 2 po BID x 10 days AMOXICILLIN 500 MG CAPS 614170 AMOXICILLIN Inactive AZITHROMYCIN 250 MG TABS take 2 po today then take 1 po days 2-5 AZITHROMYCIN 250 MG TABS 4180208 AZITHROMYCIN Inactiv e LEVAQUIN 500 MG TABS 1 pill by mouth daily LEVAQUIN 500 MG TABS 300542 LEVOFLOXACIN Inactive AUGMENTIN 875-125 MG TABS 1 pill by mouth twice daily AUGMENTIN 875-125 MG TABS 418209 AMOXICILLIN-POT CLAVULANATE Inacti ve AUGMENTIN 875-125 MG TAB 1 po BID x 10 days AUGMENTIN 875- 125 MG TAB 333527 AMOXICILLIN-POT CLAVULANATE Inactive PREDNISONE 20 MG TAB take 3 tabs daily for 3 days , 2 tabs daily for 3 days, 1 tab daily for 3 days, 1/2 tab daily for 3 days PREDNISONE 20 MG TAB 814203 PREDNISONE Inactive CIPRO 500 MG TAB 1 tablet by mouth twice daily CIPRO 500 MG TAB 060621 CIPROFLOXACIN HCL Inactive Vital Signs Date Name [...] ... - Chemistry sodium, serum 142 mmol/L 103-166 0509/07/22 carbon dioxide, venous blood 33.1 mmol/L 21.0-32 [...] 56 mg/dL 30-200 cholesterol, serum 200 mg/dL 671-083 4138/07/22 hemoglobin A1C, blood, as % of total [...] 0-19 Encounters Code Encounter Date Provider Facility CPT-02312 Level 3 Est. Patient 11:27:00 PUBLIC AFFAIRS MANAGER Ike Deluna MD [facility] CPT-70588 Level 3 Est. Patient 08:50:57 PUBLIC AFFAIRS MANAGER Dangelo GIG TENDER [facility] CPT-63070 Level 3 Est. Patient 10:04:13 CDT Bertrand marquez [facility] CPT-84710 Level 4 Est. Patient 16:02:10 PUBLIC AFFAIRS MANAGER Dangelo [facility] CPT-57093 Level 3 Est. Patient 13:04:54 PUBLIC AFFAIRS MANAGER Dangelo [facility] CPT-40082 Level 3 Est. Patient 12:56:37 CDT Bertrand marquez [facility] CPT-96744 Level 3 Est. Patient 19:12:03 CDT Yoli tolbert MD PhD [facility] CPT-26801 Level 3 Est. Patient 14:36:01 CDT Yoli tolbert MD [facility] CPT-63248 Level 2 Est. Patient 08:00:22 CDT Jcarlos dc MD [facility] CPT-54132 Level 3 Est. Patient 19:06:55 CDT Bertrand marquez [facility] CPT-26750 Level 3 Est. Patient 10:08:23 PUBLIC AFFAIRS MANAGER Bertrand marquez [facility] CPT-72248 Level 3 Est. Patient 16:37:54 PUBLIC AFFAIRS MANAGER Bertrand marquez [facility] CPT-52434 Level 3 Est. Patient 11:31:59 PUBLIC AFFAIRS MANAGER Bertrand marquez [facility] CPT-21380 Level 3 Est. Patient 10:20:08 CDT Demie Ahl jacklyn [facility] CPT-16360 Level 3 Est. Patient 13:45:20 CDT Sanket Ankit buckley [facility] CPT-84061 Level 3 Est. Patient 12:51:06 CDT Adolfo Jerzy villasenor [facility] CPT-19034 Level 3 Est. Patient 11:22:51 PUBLIC AFFAIRS MANAGER Yoli tolbert MD PhD [facility] CPT-64594 Level 3 Est. Patient 13:33:19 CDT Bertrand Sabillon ee DO [facility] Procedures Code Procedure Name Date Entry Date Standard Desc ription CPT-73800 Wound Culture - LAB USE ONLY 15:45:25 CDT 2 CPT-52938 Venipuncture Draw Fee 10:23:01 CDT CPT-J0696 Rocephin 1000 mg (Ceftriaxone) 16:20:30 PUBLIC AFFAIRS MANAGER CPT-24586 Abx/Therapy Injection 16:20:29 PUBLIC AFFAIRS MANAGER CPT-J0696 Rocephin 1gm Inj Solr 15:51:59 PUBLIC AFFAIRS MANAGER CPT-26732 Chest 2V Frontal and Lat 15:20:28 PUBLIC AFFAIRS MANAGER 07/22 CPT-26167 Breathing Tx 14:51:55 PUBLIC AFFAIRS MANAGER CPT-13224 Breathing Tx 09:57:16 PUBLIC AFFAIRS MANAGER CPT-09093 Knee comp 4/> V 11:58:06 PUBLIC AFFAIRS MANAGER
--- OUTSIDE RECORDS SUMMARY | 2019-11-13 10:10 | XMS REPORT | Clinical Summary ---
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 sinusitis, unspecified Fatigue 780.79 Active Silvia Arnold [...] Name NDC Status Provider Patient Instruction MODAFINIL 100 MG ORAL TABS 1 tablet morning and noon for narcole psy MODAFINIL 99471985389 Active Bertrand Patel DO Active CYCLOBENZAPRINE HCL 10 MG TABS Take 1 tab TID PRN for muscle pain CYCLOBENZAPRINE HCL 35744465909 No Longer Active Bertrand Patel DO Ac tive TESSALON PERLES 100 MG CAP 1 tablet by mouth 3 times daily 07/07 BENZONATATE 58036789756 No Longer Active Bertrand Patel DO Ac tive NEBULIZER MISC use as directed NEBULIZERS 978327 61840 No Longer Active Bertrand Patel DO Active ALBUTEROL SULFATE 0.083 % NEBU SOLN one vial per nebul izer every 4-6 hours as needed ALBUTEROL SULFATE 64707420221 No Longer Active Bertrand Patel DO Active SYMBICORT 160-4.5 MCG/ACT AERO 2 puffs BID BUDESONIDE- FORMOTEROL FUMARATE 20323636147 No Longer Active Bertrand Patel DO Ac tive PREDNISONE 20 MG TAB take 3 tabs daily for 3 days , 2 tabs daily for 3 days, 1 tab daily for 3 days, 1/2 tab daily for 3 days P REDNISONE 65063422569 No Longer Active Silvia Arnold APRN Active AZITHROMYCIN 250 MG ORAL TABS Take 2 tabs po today then 1 ta b po daily AZITHROMYCIN 43719164217 No Longer Active Silvia Jorge gavin [employer] Active AUGMENTIN 875-125 MG TAB 1 po BID x 10 days AMOXICILLIN- POT CLAVULANATE 04831287899 No Longer Active Adriana Bender LPN Active CHEWABLE CALCIUM 500-200-40 MG-UNT-MCG ORAL CHEW 1 chew tab bid 201 11/03/03 CALCIUM-VITAMIN D-VITAMIN K 76955007154 Active Silvia Arnold APRN Active EQ COMPLETE MULTIVIT ADULT 50+ ORAL TABS 1 tab po bid MULTIPLE VITAMINS-MINERALS 85160913705 Active Silvia Arnold APRN Act jairo HYDROCODONE-ACETAMINOPHEN 7.5-325 MG TABS TAKE ONE TAB EVERY 6 HOURS BY MOUTH NEEDED FOR PAIN HYDROCODONE-ACETAMINOPHEN 24314553506 Acti ve Bertrand Patel DO Active LORTAB 7.5-500 MG TABS take one po Q6 hours HYDROCODONE-ACETAMINOPHEN No Longer Active Nirmal Robbins RN Active [facility] MELATONIN 5-10 MG CR-TABS Take one by mouth daily at bedtime MELATONIN-PYRIDOXINE 56736691356 No Longer Active Bertrand Patel DO Active VITAMIN E 200 UNIT CAPS 1 cap po qd VITAMIN E 316 85874693 No Longer Active Bertrand Patel DO Active B-12 1000 MCG CAPS 1 tab daily CYANOCOBALAMIN 31 347288305 No Longer Active Bertrand Patel DO Active METFORMIN HCL 500 MG TABS 1 bid METFORMIN HCL 41699448928 No Longer Active Bertrand Patel DO Active FUROSEMIDE 20 MG TABS 1 pill by mouth daily if needed for edema FUROSEMIDE 27635605179 No Longer Active Bertrand Patel DO Act jairo PRAVASTATIN SODIUM 20 MG TABS 1 tablet by mouth daily at bedtime PRAVASTATIN SODIUM 16095466901 No Longer Active Bertrand Patel DO Active AUGMENTIN 875-125 MG TABS 1 pill by mouth twice daily AMOXICILLIN-POT CLAVULANATE 71437090916 No Longer Active Yoli Mercado MD PhD Active LEVAQUIN 500 MG TABS 1 pill by mouth daily LEVO FLOXACIN 32627096151 No Longer Active Yoli Mercado MD PhD Active AMLODIPINE BESYLATE 5 MG TABS 1 tablet by mouth daily for bl ood pressure AMLODIPINE BESYLATE 34334025193 Active Nitza Dorman PT,RMA Active MICARDIS 80 MG TABS 1 tablet daily for blood pressure TELMISARTAN 40371924251 Active Nitza Mullins RPT,RMA Active MICARDIS HCT 80-12.5 MG TABS 1 qd TELMISARTA N-HCTZ 73892862152 No Longer Active Bertrand Patel DO Active CINNAMON ALPHA LIPOIC AC CMPLX CAPS by mouth twice a d ay in AM by mouth twice a day in PM ALPHA LIPOIC [id number] CAPS 116583 94419 No Longer Active Bertrand Patel DO Active AZITHROMYCIN 500 MG SOLR 1 po q day AZITHROMYCI N 52966384349 No Longer Active Bertrand Patel DO Active CYMBALTA 30 MG CPEP 1 cap by mouth daily DULOXE CATHI HCL 30143564041 No Longer Active Bertrand Patel DO Active CYMBALTA 60 MG CPEP 1 cap by mouth daily DULOXE CATHI HCL 06804085729 Active Nitza Mullins RPT,RMA Active WELLBUTRIN 75 MG TABS 2 times daily BUPROPION H CL 34739738352 No Longer Active Bertrand Patel DO Active PROAIR HFA 108 (90 BASE) MCG/ACT AERS take one to two puffs po Q4-6 hour prn cough and shortness of breath ALBUTEROL SULFATE 7915421564 2 Active Silvia Arnold [employer] Active AZITHROMYCIN 250 MG TABS take 2 po today then take 1 po days 2-5 AZITHROMYCIN 38577221480 No Longer Active Adolfo OSORIO Active PERMETHRIN 5 % CREA apply neck to toes tonight a nd then rinse off in morning. repeat at 7 days PERMETHRIN 99940012584 No Longer Active Adolfo OSORIO Active AMOXICILLIN 500 MG CAPS 2 po BID x 10 days AMOX ICILLIN 85012364597 No Longer Active Yoli Mercado MD PhD Active ALPRAZOLAM 0.5 MG TAB 1 tab by mouth tid ALPRAZOL AM 79575399874 Active Nitaz Mullins RPT,RMA Active INSUPEN ULTRAFIN 31G X 6 MM MISC USE DIRECTED 03/04 INSULIN PEN NEEDLE 29123180194 No Longer Active Bertrand Patel DO Active TRANSDERM-SCOP 1.5 MG PT72 1 patch applied behind ear q 3 day 20 04/13/28 SCOPOLAMINE BASE 53516378346 No Longer Active Bertrand Patel DO Active MACRODANTIN 100 MG CAPS one p.o. b.i.d. x2 weeks 03/04 NITROFURANTOIN MACROCRYSTAL 23524260775 No Longer Active Bertrand Patel DO Active MACRODANTIN 100 MG CAPS one p.o. b.i.d. x2 weeks 03/04 MACRODANTIN 100 MG CAPS 7710750 NITROFURANTOIN MACROCRYSTAL Inactive TRANSDERM-SCOP 1.5 MG PT72 [...] at 7 days PERMETHRIN 5 % CREA 959084 PERMETHRIN Inactive WELLBUTRIN 75 MG TABS 2 times daily WELLBUTRIN 75 MG TABS BUPROPION HCL Inactive CYMBALTA 30 MG CPEP 1 cap by mouth daily CYMBALTA 30 MG CPEP 491137 DULOXETINE HCL Inactive AZITHROMYCIN 500 MG SOLR 1 po q day ALTA THROMYCIN 500 MG SOLR 55904182999 AZITHROMYCIN Inactive CINNAMON ALPHA LIPOIC AC CMPLX CAPS by mouth twice a d ay in AM by mouth twice a day in PM CINNAMON ALPHA LIPOIC AC CMPLX CAPS ALPHA LIPOIC [id number] CAPS Inactive MICARDIS HCT 80-12.5 MG TABS 1 qd MICARDI S HCT 80-12.5 MG TABS 180708 TELMISARTAN-HCTZ Inactive PRAVASTATIN SODIUM 20 MG TABS 1 tablet by mouth daily at bedtime PRAVASTATIN SODIUM 20 MG TABS 026790 PRAVASTATIN SODIUM Inactive FUROSEMIDE 20 MG TABS 1 pill by mouth daily if needed for edema FUROSEMIDE 20 MG TABS 425480 FUROSEMIDE Inactive METFORMIN HCL 500 MG TABS 1 bid METFORMIN HCL 500 MG TABS 242086 METFORMIN HCL Inactive B-12 1000 MCG CAPS 1 tab daily B-12 1000 MCG CAP S CYANOCOBALAMIN Inactive VITAMIN E 200 UNIT CAPS 1 cap po qd VITAMIN E 2 00 UNIT CAPS 6551828 VITAMIN E Inactive [facility] MELATONIN 5-10 MG CR-TABS Take one by mouth daily at bedtime [facility] MELATONIN 5-10 MG CR-TABS MELATONIN-PYRIDOXI NE Inactive LORTAB 7.5-500 MG TABS take one po Q6 hours LORTAB 7.5-500 MG TABS HYDROCODONE-ACETAMINOPHEN Inactive AZITHROMYCIN 250 MG ORAL TABS Take 2 tabs po today then 1 ta b po daily AZITHROMYCIN 250 MG ORAL TABS 1951151 AZITHROMYCI N Inactive SYMBICORT 160-4.5 MCG/ACT AERO 2 puffs BID SYMBICORT 160- 4.5 MCG/ACT AERO BUDESONIDE-FORMOTEROL FUMARATE Inactive ALBUTEROL SULFATE 0.083 % NEBU SOLN one vial per nebul izer every 4-6 hours as needed ALBUTEROL SULFATE 0.083 % NEBU SOLN 36219 8 ALBUTEROL SULFATE Inactive NEBULIZER MISC use as directed NEBULIZER MISC NEBULIZERS Inactive TESSALON PERLES 100 MG CAP 1 tablet by mouth 3 times daily 07/07 TESSALON PERLES 100 MG CAP 666882 BENZONATATE Inact jairo CYCLOBENZAPRINE HCL 10 MG TABS Take 1 tab TID PRN for muscle pain CYCLOBENZAPRINE HCL 10 MG TABS 271659 CYCLOBENZAPRINE HCL Inactive AMOXICILLIN 500 MG CAPS 2 po BID x 10 days AMOXICILLIN 500 MG CAPS 108517 AMOXICILLIN Inactive AZITHROMYCIN 250 MG TABS take 2 po today then take 1 po days 2-5 AZITHROMYCIN 250 MG TABS 8672858 AZITHROMYCIN Inactiv e LEVAQUIN 500 MG TABS 1 pill by mouth daily LEVAQUIN 500 MG TABS 582109 LEVOFLOXACIN Inactive AUGMENTIN 875-125 MG TABS 1 pill by mouth twice daily AUGMENTIN 875-125 MG TABS 163078 AMOXICILLIN-POT CLAVULANATE Inacti ve AUGMENTIN 875-125 MG TAB 1 po BID x 10 days AUGMENTIN 875- 125 MG TAB 383156 AMOXICILLIN-POT CLAVULANATE Inactive PREDNISONE 20 MG TAB take 3 tabs daily for 3 days , 2 tabs daily for 3 days, 1 tab daily for 3 days, 1/2 tab daily for 3 days PREDNISONE 20 MG TAB 450259 PREDNISONE Inactive Vital Signs Date Name Value [...] count 339 10^3/MM^3 10*3/mm3 142-424 Lab Report: JENNIFER INFLUENZA A/B, Myco Pn eumo - Toxicology rapid flu test Negative Negative;Positive Encounters Code Encounter Date Provider Facility CPT-12577 Level 3 Est. Patient 10:04:13 CDT Bertrand marquez [facility] CPT-44286 Level 4 Est. Patient 16:02:10 SUPERVISOR BAKING Dangelo [facility] CPT-95334 Level 3 Est. Patient 13:04:54 SUPERVISOR BAKING Dangelo [facility] CPT-69059 Level 3 Est. Patient 12:56:37 CDT Bertrand marquez [facility] CPT-93612 Level 3 Est. Patient 19:12:03 CDT Yoli tolbert MD [facility] CPT-99501 Level 3 Est. Patient 14:36:01 CDT Yoli tolbert MD [facility] CPT-00710 Level 2 Est. Patient 08:00:22 CDT Jcarlos dc MD [facility]-14019 Level 3 Est. Patient 19:06:55 CDT Bertrand marquez [facility] CPT-70033 Level 3 Est. Patient 10:08:23 SUPERVISOR BAKING Bertrand marquez [facility] CPT-97148 Level 3 Est. Patient 16:37:54 SUPERVISOR BAKING Bertrand marquez [facility] CPT-59431 Level 3 Est. Patient 11:31:59 SUPERVISOR BAKING Bertrand marquez [facility] CPT-25299 Level 3 Est. Patient 10:20:08 CDT Adolfo villasenor [facility] CPT-03063 Level 3 Est. Patient 13:45:20 CDT Sanket buckley [facility] CPT-95531 Level 3 Est. Patient 12:51:06 CDT Adolfo villasenor [facility] CPT-58506 Level 3 Est. Patient 11:22:51 SUPERVISOR BAKING Yoli tolbert MD PhD [facility] CPT-72946 Level 3 Est. Patient 13:33:19 CDT Bertrand marquez [facility] Procedures Code Procedure Name Date Entry Date Standard Desc ription CPT-61811 Venipuncture Draw Fee 10:23:01 CDT CPT-J0696 Rocephin 1000 mg (Ceftriaxone) 16:20:30 SUPERVISOR BAKING CPT-03362 Abx/Therapy Injection 16:20:29 SUPERVISOR BAKING CPT-J0696 Rocephin 1gm Inj Solr 15:51:59 SUPERVISOR BAKING CPT-35936 Chest 2V Frontal and Lat 15:20:28 SUPERVISOR BAKING 07/22 CPT-05119 Breathing Tx 14:51:55 SUPERVISOR BAKING CPT-37183 Breathing Tx 09:57:16 SUPERVISOR BAKING CPT-57925 Knee comp 4/> V 11:58:06 SUPERVISOR BAKING
--- OUTSIDE RECORDS SUMMARY | 2019-11-13 10:10 | XMS REPORT | Clinical Summary ---
Author Author Admin, Enrique Adamson Organization [employer] Address Unknown Phone Unavailable Allergies, Adverse Reactions, [...] NDC Status Provider Patient Instruction VITAMIN D3 10756 UNIT CAPS 1 pill Week x 4 months for vitamin D deficiency/osteoporosis CHOLECALCIFEROL 84754435115 Active Darlyn Monzon Active BENZONATATE 200 MG ORAL CAPS 1 three times a day as needed for c ough BENZONATATE 04692648296 Active Ike Deluna MD Acti ve ZITHROMAX Z-MARTIN 250 MG TABS 2 today and then 1 daily for 4 days 201 12/01/06 AZITHROMYCIN 46208066538 Active Ike Deluna MD Active ADDERALL 10 MG ORAL TABS 1 tab twice daily AMPHETAMINE-DEXTROAMPHETAMINE 49819474419 Active Ike Deluna MD Active BACTROBAN 2 % CREAM Apply to affected area BID for up to 10 days MUPIROCIN CALCIUM 25779518372 No Longer Active Ike Deluna MD Active CIPRO 500 MG TAB 1 tablet by mouth twice daily CIPROFLOXACIN HCL 40874393303 No Longer Active Adriana Bender LPN Active AUGMENTIN 875-125 MG TAB 1 po BID x 10 days AMOXICILLIN- POT CLAVULANATE 82015514176 No Longer Active Adriana Bender LPN Active MODAFINIL 200 MG ORAL TABS Take 1/2 tab po in the am and 1/2 tab po at noon MODAFINIL 17737341271 Active Darlyn Monzon A ctive CYCLOBENZAPRINE HCL 10 MG TABS Take 1 tab TID PRN for muscle pain CYCLOBENZAPRINE HCL 81114893117 No Longer Active Bertrand Patel DO Ac tive TESSALON PERLES 100 MG CAP 1 tablet by mouth 3 times daily 07/07 BENZONATATE 84133945277 No Longer Active Bertrand Patel DO Ac tive NEBULIZER MISC use as directed NEBULIZERS 483562 69706 No Longer Active Bertrand Patel DO Active ALBUTEROL SULFATE 0.083 % NEBU SOLN one vial per nebul izer every 4-6 hours as needed ALBUTEROL SULFATE 24984174637 No Longer Active Bertrand Patel DO Active SYMBICORT 160-4.5 MCG/ACT AERO 2 puffs BID BUDESONIDE- FORMOTEROL FUMARATE 84544019616 No Longer Active Bertrand Patel DO Ac tive PREDNISONE 20 MG TAB take 3 tabs daily for 3 days , 2 tabs daily for 3 days, 1 tab daily for 3 days, 1/2 tab daily for 3 days P REDNISONE 82072012603 No Longer Active Silvia Arnold APRN Active AZITHROMYCIN 250 MG ORAL TABS Take 2 tabs po today then 1 ta b po daily AZITHROMYCIN 89201022386 No Longer Active Silvia Jorge leslye TOVARN Active AUGMENTIN 875-125 MG TAB 1 po BID x 10 days AMOXICILLIN- POT CLAVULANATE 16863300598 No Longer Active Adriana Bender LPN Active CHEWABLE CALCIUM 500-200-40 MG-UNT-MCG ORAL CHEW 1 chew tab bid 201 11/03/03 CALCIUM-VITAMIN D-VITAMIN K 83388424218 Active Silvia Arnold APRN Active EQ COMPLETE MULTIVIT ADULT 50+ ORAL TABS 1 tab po bid MULTIPLE VITAMINS-MINERALS 85072249625 Active Silvia Arnold APRN Act jairo HYDROCODONE-ACETAMINOPHEN 7.5-325 MG TABS TAKE ONE TAB EVERY 6 HOURS BY MOUTH NEEDED FOR PAIN HYDROCODONE-ACETAMINOPHEN 23455596196 Acti ve Bertrand Patel DO Active LORTAB 7.5-500 MG TABS take one po Q6 hours HYDROCODONE-ACETAMINOPHEN No Longer Active Nirmal Robbins RN Active [facility] MELATONIN 5-10 MG CR-TABS Take one by mouth daily at bedtime MELATONIN-PYRIDOXINE 10197101994 No Longer Active Bertrand Patel DO Active VITAMIN E 200 UNIT CAPS 1 cap po qd VITAMIN E 316 59664618 No Longer Active Bertrand aPtel DO Active B-12 1000 MCG CAPS 1 tab daily CYANOCOBALAMIN 31 944584049 No Longer Active Bertrnad Patel DO Active METFORMIN HCL 500 MG TABS 1 bid METFORMIN HCL 36618942260 No Longer Active Bertrand Patel DO Active FUROSEMIDE 20 MG TABS 1 pill by mouth daily if needed for edema FUROSEMIDE 91796122493 No Longer Active Bertrand Patel DO Act jairo PRAVASTATIN SODIUM 20 MG TABS 1 tablet by mouth daily at bedtime PRAVASTATIN SODIUM 26959522899 No Longer Active Bertrand Patel DO Active AUGMENTIN 875-125 MG TABS 1 pill by mouth twice daily AMOXICILLIN-POT CLAVULANATE 17930047545 No Longer Active Yoli Mercado MD PhD Active LEVAQUIN 500 MG TABS 1 pill by mouth daily LEVO FLOXACIN 05371709610 No Longer Active Yoli Mercado MD PhD Active AMLODIPINE BESYLATE 5 MG TABS 1 tablet by mouth daily for bl ood pressure AMLODIPINE BESYLATE 83914474352 Active Darlyn Monzon Active MICARDIS 80 MG TABS 1 tablet daily for blood pressure TELMISARTAN 09817470782 Active Darlyn Monzon Active MICARDIS HCT 80-12.5 MG TABS 1 qd TELMISARTA N-HCTZ 94709871783 No Longer Active Bertrand Patel DO Active CINNAMON ALPHA LIPOIC AC CMPLX CAPS by mouth twice a d ay in AM by mouth twice a day in PM ALPHA LIPOIC [id number]-TA-MEWAUJIY CAPS 622091 39518 No Longer Active Bertrand Patel DO Active AZITHROMYCIN 500 MG SOLR 1 po q day AZITHROMYCI N 73292967924 No Longer Active Bertrand Patel DO Active CYMBALTA 30 MG CPEP 1 cap by mouth daily DULOXE CATHI HCL 37129086507 No Longer Active Bertrand Patel DO Active CYMBALTA 60 MG CPEP 1 cap by mouth daily DULOXE CATHI HCL 73627881669 Active Darlyn Monzon Active WELLBUTRIN 75 MG TABS 2 times daily BUPROPION H CL 54179369213 No Longer Active Bertrand W Jorge DO Active PROAIR HFA 108 (90 BASE) MCG/ACT AERS take one to two puffs po Q4-6 hour prn cough and shortness of breath ALBUTEROL SULFATE 0090666738 2 Active Silvia Arnold RESEARCH AND DEVELOPMENT DIRECTOR Active AZITHROMYCIN 250 MG TABS take 2 po today then take 1 po days 2-5 AZITHROMYCIN 05350437332 No Longer Active Adolfo OSORIO Active PERMETHRIN 5 % CREA apply neck to toes tonight a nd then rinse off in morning. repeat at 7 days PERMETHRIN 67237671723 No Longer Active Adolfo OSORIO Active AMOXICILLIN 500 MG CAPS 2 po BID x 10 days AMOX ICILLIN 97920452660 No Longer Active Yoli Mercado MD PhD Active ALPRAZOLAM 0.5 MG TAB 1 tab by mouth tid ALPRAZOL AM 59367822059 Active Nitza Mullins CRACKING 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 Active INSUPEN ULTRAFIN 31G X 6 MM MISC USE DIRECTED 03/04 INSULIN PEN NEEDLE 88227331298 No Longer Active Bertrand Patel DO Active TRANSDERM-SCOP 1.5 MG PT72 1 patch applied behind ear q 3 day 20 04/13/28 SCOPOLAMINE BASE 77732591201 No Longer Active Bertrand Patel DO Active MACRODANTIN 100 MG CAPS one p.o. b.i.d. x2 weeks 03/04 NITROFURANTOIN MACROCRYSTAL 85058267662 No Longer Active Bertrand Patel DO Active MACRODANTIN 100 MG CAPS one p.o. b.i.d. x2 weeks 03/04 MACRODANTIN 100 MG CAPS 3696403 NITROFURANTOIN MACROCRYSTAL Inactive TRANSDERM-SCOP 1.5 MG PT72 [...] at 7 days PERMETHRIN 5 % CREA 191881 PERMETHRIN Inactive WELLBUTRIN 75 MG TABS 2 times daily WELLBUTRIN 75 MG TABS 257677 BUPROPION HCL Inactive CYMBALTA 30 MG CPEP 1 cap by mouth daily CYMBALTA 30 MG CPEP 769164 DULOXETINE HCL Inactive AZITHROMYCIN 500 MG SOLR 1 po q day ALTA THROMYCIN 500 MG SOLR 69900841367 AZITHROMYCIN Inactive CINNAMON ALPHA LIPOIC AC CMPLX CAPS by mouth twice a d ay in AM by mouth twice a day in PM CINNAMON ALPHA LIPOIC AC CMPLX CAPS ALPHA LIPOIC CTOF-ST-PHPQCPNI CAPS Inactive MICARDIS HCT 80-12.5 MG TABS 1 qd MICARDI S HCT 80-12.5 MG TABS 396551 TELMISARTAN-HCTZ Inactive PRAVASTATIN SODIUM 20 MG TABS 1 tablet by mouth daily at bedtime PRAVASTATIN SODIUM 20 MG TABS 286854 PRAVASTATIN SODIUM Inactive FUROSEMIDE 20 MG TABS 1 pill by mouth daily if needed for edema FUROSEMIDE 20 MG TABS 155628 FUROSEMIDE Inactive METFORMIN HCL 500 MG TABS 1 bid METFORMIN HCL 500 MG TABS 758431 METFORMIN HCL Inactive B-12 1000 MCG CAPS 1 tab daily B-12 1000 MCG CAP S CYANOCOBALAMIN Inactive VITAMIN E 200 UNIT CAPS 1 cap po qd VITAMIN E 2 00 UNIT CAPS 9635235 VITAMIN E Inactive [facility] MELATONIN 5-10 MG CR-TABS Take one by mouth daily at bedtime [facility] MELATONIN 5-10 MG CR-TABS MELATONIN-PYRIDOXI NE Inactive LORTAB 7.5-500 MG TABS take one po Q6 hours LORTAB 7.5-500 MG TABS 623813 HYDROCODONE-ACETAMINOPHEN Inactive AZITHROMYCIN 250 MG ORAL TABS Take 2 tabs po today then 1 ta b po daily AZITHROMYCIN 250 MG ORAL TABS 970409 AZITHROMYCI N Inactive SYMBICORT 160-4.5 MCG/ACT AERO 2 puffs BID SYMBICORT 160- 4.5 MCG/ACT AERO BUDESONIDE-FORMOTEROL FUMARATE Inactive ALBUTEROL SULFATE 0.083 % NEBU SOLN one vial per nebul izer every 4-6 hours as needed ALBUTEROL SULFATE 0.083 % NEBU SOLN 38663 8 ALBUTEROL SULFATE Inactive NEBULIZER MISC use as directed NEBULIZER MISC NEBULIZERS Inactive TESSALON PERLES 100 MG CAP 1 tablet by mouth 3 times daily 07/07 TESSALON PERLES 100 MG CAP 108514 BENZONATATE Inact jairo CYCLOBENZAPRINE HCL 10 MG TABS Take 1 tab TID PRN for muscle pain CYCLOBENZAPRINE HCL 10 MG TABS 247157 CYCLOBENZAPRINE HCL Inactive AUGMENTIN 875-125 MG TAB 1 po BID x 10 days AUGMENTIN 875- 125 MG TAB 061338 AMOXICILLIN-POT CLAVULANATE Inactive BACTROBAN 2 % CREAM Apply to affected area BID for up to 10 days BACTROBAN 2 % CREAM 252478 MUPIROCIN CALCIUM Inactive AMOXICILLIN 500 MG CAPS 2 po BID x 10 days AMOXICILLIN 500 MG CAPS 490603 AMOXICILLIN Inactive AZITHROMYCIN 250 MG TABS take 2 po today then take 1 po days 2-5 AZITHROMYCIN 250 MG TABS 323904 AZITHROMYCIN Inactiv e LEVAQUIN 500 MG TABS 1 pill by mouth daily LEVAQUIN 500 MG TABS 297267 LEVOFLOXACIN Inactive AUGMENTIN 875-125 MG TABS 1 pill by mouth twice daily AUGMENTIN 875-125 MG TABS 311380 AMOXICILLIN-POT CLAVULANATE Inacti ve AUGMENTIN 875-125 MG TAB 1 po BID x 10 days AUGMENTIN 875- 125 MG TAB 322972 AMOXICILLIN-POT CLAVULANATE Inactive PREDNISONE 20 MG TAB take 3 tabs daily for 3 days , 2 tabs daily for 3 days, 1 tab daily for 3 days, 1/2 tab daily for 3 days PREDNISONE 20 MG TAB 074005 PREDNISONE Inactive CIPRO 500 MG TAB 1 tablet by mouth twice daily CIPRO 500 MG TAB 883589 CIPROFLOXACIN HCL Inactive Vital Signs Date Name [...] 0-19 Encounters Code Encounter Date Provider Facility CPT-62778 Level 4 Est. Patient 12:31:54 CDT Bertrand marquez [facility] CPT-91209 Level 3 Est. Patient 11:27:00 COMPUTER SYSTEMS SUPPORT SPECIALIST Ike Deluna MD [facility]-53649 Level 3 Est. Patient 08:50:57 COMPUTER SYSTEMS SUPPORT SPECIALIST Dangelo RESEARCH AND DEVELOPMENT DIRECTOR [facility]-15232 Level 3 Est. Patient 10:04:13 CDT Bertrand marquez [facility] CPT-28874 Level 4 Est. Patient 16:02:10 COMPUTER SYSTEMS SUPPORT SPECIALIST Dangelo RESEARCH AND DEVELOPMENT DIRECTOR [facility]-69968 Level 3 Est. Patient 13:04:54 COMPUTER SYSTEMS SUPPORT SPECIALIST Dangelo [facility]-68810 Level 3 Est. Patient 12:56:37 CDT Bertrand marquez [facility] CPT-21414 Level 3 Est. Patient 19:12:03 CDT Yoli tolbert MD [facility] CPT-02838 Level 3 Est. Patient 14:36:01 CDT Yoli tolbert MD [facility] CPT-58203 Level 2 Est. Patient 08:00:22 CDT Jcarlos dc MD [facility]-82182 Level 3 Est. Patient 19:06:55 CDT Bertrand marquez [facility] CPT-34645 Level 3 Est. Patient 10:08:23 COMPUTER SYSTEMS SUPPORT SPECIALIST Bertrand marquez [facility]-58864 Level 3 Est. Patient 16:37:54 COMPUTER SYSTEMS SUPPORT SPECIALIST eBrtrand marquez [facility] CPT-91274 Level 3 Est. Patient 11:31:59 COMPUTER SYSTEMS SUPPORT SPECIALIST Bertrand marquez [facility] CPT-18737 Level 3 Est. Patient 10:20:08 CDT Adolfo villasenor [facility] CPT-84089 Level 3 Est. Patient 13:45:20 CDT Sanket Pham ina [facility] CPT-47019 Level 3 Est. Patient 12:51:06 CDT Gennadot Jerzy villasenor [facility] CPT-30759 Level 3 Est. Patient 11:22:51 COMPUTER SYSTEMS SUPPORT SPECIALIST Yoli tolbert MD PhD [facility] CPT-30777 Level 3 Est. Patient 13:33:19 CDT Bertrand marquez [facility] Procedures Code Procedure Name Date Entry Date Standard Desc ription CPT-17969 Wound Culture - LAB USE ONLY 15:45:25 CDT 2 CPT-02106 Venipuncture Draw Fee 10:23:01 CDT CPT-J0696 Rocephin 1000 mg (Ceftriaxone) 16:20:30 COMPUTER SYSTEMS SUPPORT SPECIALIST CPT-67891 Abx/Therapy Injection 16:20:29 COMPUTER SYSTEMS SUPPORT SPECIALIST CPT-J0696 Rocephin 1gm Inj Solr 15:51:59 COMPUTER SYSTEMS SUPPORT SPECIALIST CPT-00837 Chest 2V Frontal and Lat 15:20:28 COMPUTER SYSTEMS SUPPORT SPECIALIST 07/22 CPT-03108 Breathing Tx 14:51:55 COMPUTER SYSTEMS SUPPORT SPECIALIST CPT-63308 Breathing Tx 09:57:16 COMPUTER SYSTEMS SUPPORT SPECIALIST CPT-46508 Knee comp 4/> V 11:58:06 COMPUTER SYSTEMS SUPPORT SPECIALIST
--- OUTSIDE RECORDS SUMMARY | 2019-11-13 10:10 | XMS REPORT | Clinical Summary ---
Author Author Admin, Enrique Adamson Organization [employer] Address Unknown Phone Unavailable Allergies, Adverse Reactions, [...] Other and unspecified hyperlipidemia Pharyngitis-Acute 462 Inactive Bertrnad Patel DO Acute pharyngitis Polyuria 788.42 Resolved [...] NDC Status Provider Patient Instruction VITAMIN D3 99140 UNIT CAPS 1 pill Week x 4 months for vitamin D deficiency/osteoporosis CHOLECALCIFEROL 39659688399 Active Darlyn Monzon Active BENZONATATE 200 MG ORAL CAPS 1 three times a day as needed for c ough BENZONATATE 22495761054 Active Ike Deluna MD Acti ve ZITHROMAX Z-MARTIN 250 MG TABS 2 today and then 1 daily for 4 days 201 12/01/06 AZITHROMYCIN 41747050438 Active Ike Deluna MD Active ADDERALL 10 MG ORAL TABS 1 tab twice daily AMPHETAMINE-DEXTROAMPHETAMINE 10971279955 Active Ike Deluna MD Active BACTROBAN 2 % CREAM Apply to affected area BID for up to 10 days MUPIROCIN CALCIUM 08772653284 No Longer Active Ike Deluna MD Active CIPRO 500 MG TAB 1 tablet by mouth twice daily CIPROFLOXACIN HCL 22309403244 No Longer Active Adriana Bender LPN Active AUGMENTIN 875-125 MG TAB 1 po BID x 10 days AMOXICILLIN- POT CLAVULANATE 77157673588 No Longer Active Adriana Bender LPN Active MODAFINIL 200 MG ORAL TABS Take 1/2 tab po in the am and 1/2 tab po at noon MODAFINIL 16783582150 Active Darlyn Monzon A ctive CYCLOBENZAPRINE HCL 10 MG TABS Take 1 tab TID PRN for muscle pain CYCLOBENZAPRINE HCL 54080328878 No Longer Active Bertrand Patel DO Ac tive TESSALON PERLES 100 MG CAP 1 tablet by mouth 3 times daily 07/07 BENZONATATE 57620768707 No Longer Active Bertrand Patel DO Ac tive NEBULIZER MISC use as directed NEBULIZERS 701622 08138 No Longer Active Bertrand Patel DO Active ALBUTEROL SULFATE 0.083 % NEBU SOLN one vial per nebul izer every 4-6 hours as needed ALBUTEROL SULFATE 97264270835 No Longer Active Bertrand Patel DO Active SYMBICORT 160-4.5 MCG/ACT AERO 2 puffs BID BUDESONIDE- FORMOTEROL FUMARATE 43716874823 No Longer Active Bertrand Patel DO Ac tive PREDNISONE 20 MG TAB take 3 tabs daily for 3 days , 2 tabs daily for 3 days, 1 tab daily for 3 days, 1/2 tab daily for 3 days P REDNISONE 60924043002 No Longer Active Silvia Arnold APRN Active AZITHROMYCIN 250 MG ORAL TABS Take 2 tabs po today then 1 ta b po daily AZITHROMYCIN 19555264127 No Longer Active Silvia Jorge leslye TOVARN Active AUGMENTIN 875-125 MG TAB 1 po BID x 10 days AMOXICILLIN- POT CLAVULANATE 00178497664 No Longer Active Adriana Bender LPN Active CHEWABLE CALCIUM 500-200-40 MG-UNT-MCG ORAL CHEW 1 chew tab bid 201 11/03/03 CALCIUM-VITAMIN D-VITAMIN K 43493023057 Active Silvia Arnold APRN Active EQ COMPLETE MULTIVIT ADULT 50+ ORAL TABS 1 tab po bid MULTIPLE VITAMINS-MINERALS 82866756711 Active Silvia Arnold APRN Act jairo HYDROCODONE-ACETAMINOPHEN 7.5-325 MG TABS TAKE ONE TAB EVERY 6 HOURS BY MOUTH NEEDED FOR PAIN HYDROCODONE-ACETAMINOPHEN 20965304129 Acti ve Bertrand Patel DO Active LORTAB 7.5-500 MG TABS take one po Q6 hours HYDROCODONE-ACETAMINOPHEN No Longer Active Nirmal Robbins RN Active [facility] MELATONIN 5-10 MG CR-TABS Take one by mouth daily at bedtime MELATONIN-PYRIDOXINE 50561788326 No Longer Active Bertrand Patel DO Active VITAMIN E 200 UNIT CAPS 1 cap po qd VITAMIN E 316 69084427 No Longer Active Betrrand Patel DO Active B-12 1000 MCG CAPS 1 tab daily CYANOCOBALAMIN 31 938668679 No Longer Active Bertrand Patel DO Active METFORMIN HCL 500 MG TABS 1 bid METFORMIN HCL 63647520936 No Longer Active Bertrand Patel DO Active FUROSEMIDE 20 MG TABS 1 pill by mouth daily if needed for edema FUROSEMIDE 81353850808 No Longer Active Bertrand Patel DO Act jairo PRAVASTATIN SODIUM 20 MG TABS 1 tablet by mouth daily at bedtime PRAVASTATIN SODIUM 13015347298 No Longer Active Bertrand Patel DO Active AUGMENTIN 875-125 MG TABS 1 pill by mouth twice daily AMOXICILLIN-POT CLAVULANATE 33814434993 No Longer Active Yoli Mercado MD PhD Active LEVAQUIN 500 MG TABS 1 pill by mouth daily LEVO FLOXACIN 19656270562 No Longer Active Yoli Mercado MD PhD Active AMLODIPINE BESYLATE 5 MG TABS 1 tablet by mouth daily for bl ood pressure AMLODIPINE BESYLATE 47339800903 Active Darlyn Monzon Active MICARDIS 80 MG TABS 1 tablet daily for blood pressure TELMISARTAN 57259216599 Active Darlyn Monzon Active MICARDIS HCT 80-12.5 MG TABS 1 qd TELMISARTA N-HCTZ 86676485306 No Longer Active Bertrand Patel DO Active CINNAMON ALPHA LIPOIC AC CMPLX CAPS by mouth twice a d ay in AM by mouth twice a day in PM ALPHA LIPOIC [id number] CAPS 361077 44160 No Longer Active Bertrand Patel DO Active AZITHROMYCIN 500 MG SOLR 1 po q day AZITHROMYCI N 65065624448 No Longer Active Bertrand Patel DO Active CYMBALTA 30 MG CPEP 1 cap by mouth daily DULOXE CATHI HCL 79055554211 No Longer Active Bertrand Patel DO Active CYMBALTA 60 MG CPEP 1 cap by mouth daily DULOXE CATHI HCL 26928524255 Active Darlyn Monzon Active WELLBUTRIN 75 MG TABS 2 times daily BUPROPION H CL 22794132759 No Longer Active Bertrand W Jorge DO Active PROAIR HFA 108 (90 BASE) MCG/ACT AERS take one to two puffs po Q4-6 hour prn cough and shortness of breath ALBUTEROL SULFATE 2405198335 2 Active Silvia Arnold CLINIC MANAGER Active AZITHROMYCIN 250 MG TABS take 2 po today then take 1 po days 2-5 AZITHROMYCIN 80157545255 No Longer Active Adolfo OSORIO Active PERMETHRIN 5 % CREA apply neck to toes tonight a nd then rinse off in morning. repeat at 7 days PERMETHRIN 93198218855 No Longer Active Adolfo OSORIO Active AMOXICILLIN 500 MG CAPS 2 po BID x 10 days AMOX ICILLIN 69034123683 No Longer Active Yoli Mercado MD PhD Active ALPRAZOLAM 0.5 MG TAB 1 tab by mouth tid ALPRAZOL AM 13404234900 Active Nitza Mullins WRONG ADDRESS CLERK Active INSUPEN ULTRAFIN 31G X 6 MM MISC USE DIRECTED 03/04 INSULIN PEN NEEDLE 56625315553 No Longer Active Bertrand Patel DO Active TRANSDERM-SCOP 1.5 MG PT72 1 patch applied behind ear q 3 day 20 04/13/28 SCOPOLAMINE BASE 36837682953 No Longer Active Bertrand Patel DO Active MACRODANTIN 100 MG CAPS one p.o. b.i.d. x2 weeks 03/04 NITROFURANTOIN MACROCRYSTAL 43824240660 No Longer Active Bertrand Patel DO Active MACRODANTIN 100 MG CAPS one p.o. b.i.d. x2 weeks 03/04 MACRODANTIN 100 MG CAPS 1669114 NITROFURANTOIN MACROCRYSTAL Inactive TRANSDERM-SCOP 1.5 MG PT72 [...] at 7 days PERMETHRIN 5 % CREA 483620 PERMETHRIN Inactive WELLBUTRIN 75 MG TABS 2 times daily WELLBUTRIN 75 MG TABS BUPROPION HCL Inactive CYMBALTA 30 MG CPEP 1 cap by mouth daily CYMBALTA 30 MG CPEP 808951 DULOXETINE HCL Inactive AZITHROMYCIN 500 MG SOLR 1 po q day ALTA THROMYCIN 500 MG SOLR 71650422189 AZITHROMYCIN Inactive CINNAMON ALPHA LIPOIC AC CMPLX CAPS by mouth twice a d ay in AM by mouth twice a day in PM CINNAMON ALPHA LIPOIC AC CMPLX CAPS ALPHA LIPOIC EUWK-BS-INMDUYEY CAPS Inactive MICARDIS HCT 80-12.5 MG TABS 1 qd MICARDI S HCT 80-12.5 MG TABS 257746 TELMISARTAN-HCTZ Inactive PRAVASTATIN SODIUM 20 MG TABS 1 tablet by mouth daily at bedtime PRAVASTATIN SODIUM 20 MG TABS 136874 PRAVASTATIN SODIUM Inactive FUROSEMIDE 20 MG TABS 1 pill by mouth daily if needed for edema FUROSEMIDE 20 MG TABS 619189 FUROSEMIDE Inactive METFORMIN HCL 500 MG TABS 1 bid METFORMIN HCL 500 MG TABS 905476 METFORMIN HCL Inactive B-12 1000 MCG CAPS 1 tab daily B-12 1000 MCG CAP S CYANOCOBALAMIN Inactive VITAMIN E 200 UNIT CAPS 1 cap po qd VITAMIN E 2 00 UNIT CAPS 4225063 VITAMIN E Inactive [facility] MELATONIN 5-10 MG CR-TABS Take one by mouth daily at bedtime [facility] MELATONIN 5-10 MG CR-TABS MELATONIN-PYRIDOXI NE Inactive LORTAB 7.5-500 MG TABS take one po Q6 hours LORTAB 7.5-500 MG TABS HYDROCODONE-ACETAMINOPHEN Inactive AZITHROMYCIN 250 MG ORAL TABS Take 2 tabs po today then 1 ta b po daily AZITHROMYCIN 250 MG ORAL TABS 3850575 AZITHROMYCI N Inactive SYMBICORT 160-4.5 MCG/ACT AERO 2 puffs BID SYMBICORT 160- 4.5 MCG/ACT AERO BUDESONIDE-FORMOTEROL FUMARATE Inactive ALBUTEROL SULFATE 0.083 % NEBU SOLN one vial per nebul izer every 4-6 hours as needed ALBUTEROL SULFATE 0.083 % NEBU SOLN 58214 8 ALBUTEROL SULFATE Inactive NEBULIZER MISC use as directed NEBULIZER MISC NEBULIZERS Inactive TESSALON PERLES 100 MG CAP 1 tablet by mouth 3 times daily 07/07 TESSALON PERLES 100 MG CAP 237878 BENZONATATE Inact jairo CYCLOBENZAPRINE HCL 10 MG TABS Take 1 tab TID PRN for muscle pain CYCLOBENZAPRINE HCL 10 MG TABS 606875 CYCLOBENZAPRINE HCL Inactive AUGMENTIN 875-125 MG TAB 1 po BID x 10 days AUGMENTIN 875- 125 MG TAB 149497 AMOXICILLIN-POT CLAVULANATE Inactive BACTROBAN 2 % CREAM Apply to affected area BID for up to 10 days BACTROBAN 2 % CREAM 034866 MUPIROCIN CALCIUM Inactive AMOXICILLIN 500 MG CAPS 2 po BID x 10 days AMOXICILLIN 500 MG CAPS 821479 AMOXICILLIN Inactive AZITHROMYCIN 250 MG TABS take 2 po today then take 1 po days 2-5 AZITHROMYCIN 250 MG TABS 2766493 AZITHROMYCIN Inactiv e LEVAQUIN 500 MG TABS 1 pill by mouth daily LEVAQUIN 500 MG TABS 843048 LEVOFLOXACIN Inactive AUGMENTIN 875-125 MG TABS 1 pill by mouth twice daily AUGMENTIN 875-125 MG TABS 161474 AMOXICILLIN-POT CLAVULANATE Inacti ve AUGMENTIN 875-125 MG TAB 1 po BID x 10 days AUGMENTIN 875- 125 MG TAB 849417 AMOXICILLIN-POT CLAVULANATE Inactive PREDNISONE 20 MG TAB take 3 tabs daily for 3 days , 2 tabs daily for 3 days, 1 tab daily for 3 days, 1/2 tab daily for 3 days PREDNISONE 20 MG TAB 743938 PREDNISONE Inactive CIPRO 500 MG TAB 1 tablet by mouth twice daily CIPRO 500 MG TAB 522278 CIPROFLOXACIN HCL Inactive Vital Signs Date Name [...] 4.3-6.0 Encounters Code Encounter Date Provider Facility CPT-79879 Level 4 Est. Patient 12:31:54 CDT Bertrand marquez [facility] CPT-17214 Level 3 Est. Patient 11:27:00 STRATEGIC CONSULTANT Ike Deluna MD [facility]-00403 Level 3 Est. Patient 08:50:57 STRATEGIC CONSULTANT Dangelo BARAJAS [facility] CPT-67918 Level 3 Est. Patient 10:04:13 CDT Bertrand marquez [facility]-55007 Level 4 Est. Patient 16:02:10 STRATEGIC CONSULTANT Dangelo CLINIC MANAGER [facility] CPT-20878 Level 3 Est. Patient 13:04:54 STRATEGIC CONSULTANT Dangelo CLINIC MANAGER [facility]-31885 Level 3 Est. Patient 12:56:37 CDT Bertrand marquez [facility] CPT-48396 Level 3 Est. Patient 19:12:03 CDT Yoli tolbert MD PhD [facility] CPT-84332 Level 3 Est. Patient 14:36:01 CDT Yoli tolbert MD [facility]-14479 Level 2 Est. Patient 08:00:22 CDT Jcarlos dc MD [facility]-89785 Level 3 Est. Patient 19:06:55 CDT Bertrand marquez [facility] CPT-77940 Level 3 Est. Patient 10:08:23 STRATEGIC CONSULTANT Bertrand marquez [facility]-42087 Level 3 Est. Patient 16:37:54 STRATEGIC CONSULTANT Bertrand marquez [facility] CPT-25758 Level 3 Est. Patient 11:31:59 STRATEGIC CONSULTANT Bertrand marquez [facility] CPT-97824 Level 3 Est. Patient 10:20:08 CDT Adolfo OSORIO [facility]-34022 Level 3 Est. Patient 13:45:20 CDT Sanket Ankit buckley [facility] CPT-18336 Level 3 Est. Patient 12:51:06 CDT Adolfo Monroyridge halljacklyn [facility] CPT-29376 Level 3 Est. Patient 11:22:51 STRATEGIC CONSULTANT Yoli tolbert MD PhD [facility] CPT-36660 Level 3 Est. Patient 13:33:19 CDT Bertrand Sabillon ee DO [facility] Procedures Code Procedure Name Date Entry Date Standard Desc ription CPT-26523 Wound Culture - LAB USE ONLY 15:45:25 CDT 2 CPT-90500 Venipuncture Draw Fee 10:23:01 CDT CPT-J0696 Rocephin 1000 mg (Ceftriaxone) 16:20:30 STRATEGIC CONSULTANT CPT-39375 Abx/Therapy Injection 16:20:29 STRATEGIC CONSULTANT CPT-J0696 Rocephin 1gm Inj Solr 15:51:59 STRATEGIC CONSULTANT CPT-77704 Chest 2V Frontal and Lat 15:20:28 STRATEGIC CONSULTANT 07/22 CPT-29974 Breathing Tx 14:51:55 STRATEGIC CONSULTANT CPT-91529 Breathing Tx 09:57:16 STRATEGIC CONSULTANT CPT-25969 Knee comp 4/> V 11:58:06 STRATEGIC CONSULTANT
--- OUTSIDE RECORDS SUMMARY | 2019-11-13 10:11 | XMS REPORT | Clinical Summary ---
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 Fatigue 780.79 Active Silvia Arnold [...] to 10 days 20 18/03/27 MUPIROCIN CALCIUM 94810453773 Active Silvia Arnold APRN Act jairo AUGMENTIN 875-125 MG TAB 1 po BID x 10 days AMOXICILLIN- POT CLAVULANATE 66785218621 Active Silvia Arnold APRN Activ e MODAFINIL 200 MG ORAL TABS Take 1/2 tab po in the am and 1/2 tab po at noon MODAFINIL 49206145887 Active Silvia Arnold APRN Active CYCLOBENZAPRINE HCL 10 MG TABS Take 1 tab TID PRN for muscle pain CYCLOBENZAPRINE HCL 92375915472 No Longer Active Bertrand Patel DO Ac tive TESSALON PERLES 100 MG CAP 1 tablet by mouth 3 times daily 07/07 BENZONATATE 42553118075 No Longer Active Bertrand Patel DO Ac tive NEBULIZER MISC use as directed NEBULIZERS 353341 33944 No Longer Active Bertrand Patel DO Active ALBUTEROL SULFATE 0.083 % NEBU SOLN one vial per nebul izer every 4-6 hours as needed ALBUTEROL SULFATE 52801734405 No Longer Active Bertrand Patel DO Active SYMBICORT 160-4.5 MCG/ACT AERO 2 puffs BID BUDESONIDE- FORMOTEROL FUMARATE 23080246934 No Longer Active Bertrand Patel DO Ac tive PREDNISONE 20 MG TAB take 3 tabs daily for 3 days , 2 tabs daily for 3 days, 1 tab daily for 3 days, 1/2 tab daily for 3 days P REDNISONE 28885787405 No Longer Active Silvia Arnold APRN Active AZITHROMYCIN 250 MG ORAL TABS Take 2 tabs po today then 1 ta b po daily AZITHROMYCIN 39346094096 No Longer Active Silvia gavin APRN Active AUGMENTIN 875-125 MG TAB 1 po BID x 10 days AMOXICILLIN- POT CLAVULANATE 30371058306 No Longer Active Adriana Bender LPN Active CHEWABLE CALCIUM 500-200-40 MG-UNT-MCG ORAL CHEW 1 chew tab bid 201 11/03/03 CALCIUM-VITAMIN D-VITAMIN K 20146273429 Active Silvia Arnold APRN Active EQ COMPLETE MULTIVIT ADULT 50+ ORAL TABS 1 tab po bid MULTIPLE VITAMINS-MINERALS 52934023363 Active Silvia Arnold APRN Act jairo HYDROCODONE-ACETAMINOPHEN 7.5-325 MG TABS TAKE ONE TAB EVERY 6 HOURS BY MOUTH NEEDED FOR PAIN HYDROCODONE-ACETAMINOPHEN 03488386412 Acti raheel العلي Active LORTAB 7.5-500 MG TABS take one po Q6 hours HYDROCODONE-ACETAMINOPHEN No Longer Active Nirmal Robbins RN Active [facility] MELATON[facility] 5-10 MG CR-TABS Take one by mouth daily at bedtime MELATONIN-PYRIDOXINE 83034656537 No Longer Active Bertrand Patel DO Active VITAMIN E 200 UNIT CAPS 1 cap po qd VITAMIN E 316 83326356 No Longer Active Bertrand Patel DO Active B-12 1000 MCG CAPS 1 tab daily CYANOCOBALAMIN 31 501694551 No Longer Active Bertrand Patel DO Active METFORMIN HCL 500 MG TABS 1 bid METFORMIN HCL 61940264929 No Longer Active Bertrand Patel DO Active FUROSEMIDE 20 MG TABS 1 pill by mouth daily if needed for edema FUROSEMIDE 53826332228 No Longer Active Bertrand Patel DO Act jairo PRAVASTATIN SODIUM 20 MG TABS 1 tablet by mouth daily at bedtime PRAVASTATIN SODIUM 98840844311 No Longer Active Bertrand Patel DO Active AUGMENTIN 875-125 MG TABS 1 pill by mouth twice daily AMOXICILLIN-POT CLAVULANATE 53829262984 No Longer Active Yoli Mercado MD PhD Active LEVAQUIN 500 MG TABS 1 pill by mouth daily LEVO FLOXACIN 99648125544 No Longer Active Yoli Mercado MD PhD Active AMLODIPINE BESYLATE 5 MG TABS 1 tablet by mouth daily for bl ood pressure AMLODIPINE BESYLATE 98060515995 Active Keysha Jones MA Active MICARDIS 80 MG TABS 1 tablet daily for blood pressure TELMISARTAN 80700128505 Active Keysha Jones MA Active MICARDIS HCT 80-12.5 MG TABS 1 qd TELMISARTA N-HCTZ 18357032525 No Longer Active Bertrand Patel DO Active CINNAMON ALPHA LIPOIC AC CMPLX CAPS by mouth twice a d ay in AM by mouth twice a day in PM ALPHA LIPOIC [id number] CAPS 250531 73607 No Longer Active Bertrand Patel DO Active AZITHROMYCIN 500 MG SOLR 1 po q day AZITHROMYCI N 43929688441 No Longer Active Bertrand Patel DO Active CYMBALTA 30 MG CPEP 1 cap by mouth daily DULOXE CATHI HCL 47425761414 No Longer Active Bertrand Patel DO Active CYMBALTA 60 MG CPEP 1 cap by mouth daily DULOXE CATHI HCL 69660487183 Active Keysha Jones MA Active WELLBUTRIN 75 MG TABS 2 times daily BUPROPION H CL 92714457327 No Longer Active Bertrand Patel DO Active PROAIR HFA 108 (90 BASE) MCG/ACT AERS take one to two puffs po Q4-6 hour prn cough and shortness of breath ALBUTEROL SULFATE 9941756782 2 Active Silvia Arnold 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 repeat at 7 days PERMETHRIN 45072092076 No Longer Active Adolfo OSORIO Active AMOXICILLIN 500 MG CAPS 2 po BID x 10 days AMOX ICILLIN 47011835424 No Longer Active Yoli Mercado MD PhD Active ALPRAZOLAM 0.5 MG TAB 1 tab by mouth tid ALPRAZOL AM 99140123122 Active Nitza Mullins RPT,RMA Active INSUPEN ULTRAFIN 31G X 6 MM MISC USE DIRECTED 03/04 INSULIN PEN NEEDLE 78654362797 No Longer Active Bertrand Patel DO Active TRANSDERM-SCOP 1.5 MG PT72 1 patch applied behind ear q 3 day 20 04/13/28 SCOPOLAMINE BASE 52866398763 No Longer Active Bertrand Patel DO Active MACRODANTIN 100 MG CAPS one p.o. b.i.d. x2 weeks 03/04 NITROFURANTOIN MACROCRYSTAL 92677596637 No Longer Active Bertrand Patel DO Active MACRODANTIN 100 MG CAPS one p.o. b.i.d. x2 weeks 03/04 MACRODANTIN 100 MG CAPS 3648551 NITROFURANTOIN MACROCRYSTAL Inactive TRANSDERM-SCOP 1.5 MG PT72 [...] at 7 days PERMETHRIN 5 % CREA 931576 PERMETHRIN Inactive WELLBUTRIN 75 MG TABS 2 times daily WELLBUTRIN 75 MG TABS BUPROPION HCL Inactive CYMBALTA 30 MG CPEP 1 cap by mouth daily CYMBALTA 30 MG CPEP 611666 DULOXETINE HCL Inactive AZITHROMYCIN 500 MG SOLR 1 po q day ALTA THROMYCIN 500 MG SOLR 29462192284 AZITHROMYCIN Inactive CINNAMON ALPHA LIPOIC AC CMPLX CAPS by mouth twice a d ay in AM by mouth twice a day in PM CINNAMON ALPHA LIPOIC AC CMPLX CAPS ALPHA LIPOIC [id number] CAPS Inactive MICARDIS HCT 80-12.5 MG TABS 1 qd MICARDI S HCT 80-12.5 MG TABS 921528 TELMISARTAN-HCTZ Inactive PRAVASTATIN SODIUM 20 MG TABS 1 tablet by mouth daily at bedtime PRAVASTATIN SODIUM 20 MG TABS 247628 PRAVASTATIN SODIUM Inactive FUROSEMIDE 20 MG TABS 1 pill by mouth daily if needed for edema FUROSEMIDE 20 MG TABS 312218 FUROSEMIDE Inactive METFORMIN HCL 500 MG TABS 1 bid METFORMIN HCL 500 MG TABS 721042 METFORMIN HCL Inactive B-12 1000 MCG CAPS 1 tab daily B-12 1000 MCG CAP S CYANOCOBALAMIN Inactive VITAMIN E 200 UNIT CAPS 1 cap po qd VITAMIN E 2 00 UNIT CAPS 8466294 VITAMIN E Inactive [facility] MELATONIN 5-10 MG CR-TABS Take one by mouth daily at bedtime [facility] MELATONIN 5-10 MG CR-TABS MELATONIN-PYRIDOXI NE Inactive LORTAB 7.5-500 MG TABS take one po Q6 hours LORTAB 7.5-500 MG TABS HYDROCODONE-ACETAMINOPHEN Inactive AZITHROMYCIN 250 MG ORAL TABS Take 2 tabs po today then 1 ta b po daily AZITHROMYCIN 250 MG ORAL TABS 7203881 AZITHROMYCI N Inactive SYMBICORT 160-4.5 MCG/ACT AERO 2 puffs BID SYMBICORT 160- 4.5 MCG/ACT AERO BUDESONIDE-FORMOTEROL FUMARATE Inactive ALBUTEROL SULFATE 0.083 % NEBU SOLN one vial per nebul izer every 4-6 hours as needed ALBUTEROL SULFATE 0.083 % NEBU SOLN 29011 8 ALBUTEROL SULFATE Inactive NEBULIZER MISC use as directed NEBULIZER MISC NEBULIZERS Inactive TESSALON PERLES 100 MG CAP 1 tablet by mouth 3 times daily 07/07 TESSALON PERLES 100 MG CAP 995914 BENZONATATE Inact jairo CYCLOBENZAPRINE HCL 10 MG TABS Take 1 tab TID PRN for muscle pain CYCLOBENZAPRINE HCL 10 MG TABS 332542 CYCLOBENZAPRINE HCL Inactive AMOXICILLIN 500 MG CAPS 2 po BID x 10 days AMOXICILLIN 500 MG CAPS 789512 AMOXICILLIN Inactive AZITHROMYCIN 250 MG TABS take 2 po today then take 1 po days 2-5 AZITHROMYCIN 250 MG TABS 3792200 AZITHROMYCIN Inactiv e LEVAQUIN 500 MG TABS 1 pill by mouth daily LEVAQUIN 500 MG TABS 643030 LEVOFLOXACIN Inactive AUGMENTIN 875-125 MG TABS 1 pill by mouth twice daily AUGMENTIN 875-125 MG TABS 605064 AMOXICILLIN-POT CLAVULANATE Inacti ve AUGMENTIN 875-125 MG TAB 1 po BID x 10 days AUGMENTIN 875- 125 MG TAB 099538 AMOXICILLIN-POT CLAVULANATE Inactive PREDNISONE 20 MG TAB take 3 tabs daily for 3 days , 2 tabs daily for 3 days, 1 tab daily for 3 days, 1/2 tab daily for 3 days PREDNISONE 20 MG TAB 205521 PREDNISONE Inactive Vital Signs Date Name Value [...] 5.8 % 4.3-6.0 cholesterol, serum 200 mg/dL 145-964 7140/07/22 triglyceride, serum, fasting 56 mg/dL 30-200 HDL cholesterol, serum 80 mg/dL 32-96 LDL cholesterol, serum 109 mg/dL 0-130 albumin/creatinine ratio, urine < 30 mg/g mg/g{creat} 0-2 9 TSH 1.16 m[iU]/mL 0.36-3.74 sodium, serum 142 mmol/L 605-209 4478/07/22 carbon dioxide, venous blood 33.1 mmol/L 21.0-32 [...] Negative;Positive Encounters Code Encounter Date Provider Facility CPT-29072 Level 3 Est. Patient 10:04:13 CDT Bertrand marquez [facility] CPT-31390 Level 4 Est. Patient 16:02:10 CONTROL CABINET ASSEMBLER Dangelo BARAJAS [facility] CPT-56118 Level 3 Est. Patient 13:04:54 CONTROL CABINET ASSEMBLER Dangelo BARAJAS [facility]-10278 Level 3 Est. Patient 12:56:37 CDT Bertrand marquez [facility] CPT-25821 Level 3 Est. Patient 19:12:03 CDT Yoli tolbert MD [facility]-40974 Level 3 Est. Patient 14:36:01 CDT Yoli tolbert MD [facility]-91060 Level 2 Est. Patient 08:00:22 CDT Jcarlos dc MD [facility]-57071 Level 3 Est. Patient 19:06:55 CDT Bertrand marquez [facility]-19664 Level 3 Est. Patient 10:08:23 CONTROL CABINET ASSEMBLER Bertrand marquez [facility] CPT-88760 Level 3 Est. Patient 16:37:54 CONTROL CABINET ASSEMBLER Bertrand marquez [facility] CPT-78685 Level 3 Est. Patient 11:31:59 CONTROL CABINET ASSEMBLER Bertrand marquez [facility] CPT-56385 Level 3 Est. Patient 10:20:08 CDT Adolfo villasenor [facility]-59780 Level 3 Est. Patient 13:45:20 CDT Sanket buckley [facility] CPT-15075 Level 3 Est. Patient 12:51:06 CDT Adolfo villasenor [facility]-97351 Level 3 Est. Patient 11:22:51 CONTROL CABINET ASSEMBLER Yoli tolbert MD [facility]-11491 Level 3 Est. Patient 13:33:19 CDT Bertrand marquez [facility] Procedures Code Procedure Name Date Entry Date Standard Desc ription CPT-23096 Venipuncture Draw Fee 10:23:01 CDT CPT-J0696 Rocephin 1000 mg (Ceftriaxone) 16:20:30 CONTROL CABINET ASSEMBLER CPT-61998 Abx/Therapy Injection 16:20:29 CONTROL CABINET ASSEMBLER CPT-J0696 Rocephin 1gm Inj Solr 15:51:59 CONTROL CABINET ASSEMBLER CPT-72183 Chest 2V Frontal and Lat 15:20:28 CONTROL CABINET ASSEMBLER 07/22 CPT-69619 Breathing Tx 14:51:55 CONTROL CABINET ASSEMBLER CPT-67280 Breathing Tx 09:57:16 CONTROL CABINET ASSEMBLER CPT-04686 Knee comp 4/> V 11:58:06 CONTROL CABINET ASSEMBLER
--- OUTSIDE RECORDS SUMMARY | 2019-11-13 10:11 | XMS REPORT | Clinical Summary ---
Author Author Admin, Enrique Adamson Organization [email or web address] Address Unknown Phone Unavailable Allergies, Adverse Reactions, [...] day as needed for c ough BENZONATATE 52717760025 Active Ike Deluna MD Acti ve ZITHROMAX Z-MARTIN 250 MG TABS 2 today and then 1 daily for 4 days 201 12/01/06 AZITHROMYCIN 38970126706 Active Ike Deluna MD Active ADDERALL 10 MG ORAL TABS 1 tab twice daily AMPHETAMINE-DEXTROAMPHETAMINE 07659693453 Active Ike Deluna MD Active BACTROBAN 2 % CREAM Apply to affected area BID for up to 10 days MUPIROCIN CALCIUM 58036651415 No Longer Active Ike Deluna MD Active CIPRO 500 MG TAB 1 tablet by mouth twice daily CIPROFLOXACIN HCL 18490888448 No Longer Active Adriana Bender LPN Active AUGMENTIN 875-125 MG TAB 1 po BID x 10 days AMOXICILLIN- POT CLAVULANATE 03178259515 No Longer Active Adriana Bender LPN Active MODAFINIL 200 MG ORAL TABS Take 1/2 tab po in the am and 1/2 tab po at noon MODAFINIL 58421160197 Active Silvia Arnold APRN Active CYCLOBENZAPRINE HCL 10 MG TABS Take 1 tab TID PRN for muscle pain CYCLOBENZAPRINE HCL 84448276770 No Longer Active Bertrand Patel DO Ac tive TESSALON PERLES 100 MG CAP 1 tablet by mouth 3 times daily 07/07 BENZONATATE 16409410581 No Longer Active Bertrand Patel DO Ac tive NEBULIZER MISC use as directed NEBULIZERS 313240 56388 No Longer Active Bertrand Patel DO Active ALBUTEROL SULFATE 0.083 % NEBU SOLN one vial per nebul izer every 4-6 hours as needed ALBUTEROL SULFATE 29321142733 No Longer Active Bertrand Patel DO Active SYMBICORT 160-4.5 MCG/ACT AERO 2 puffs BID BUDESONIDE- FORMOTEROL FUMARATE 50825600199 No Longer Active Bertrand Patel DO Ac tive PREDNISONE 20 MG TAB take 3 tabs daily for 3 days , 2 tabs daily for 3 days, 1 tab daily for 3 days, 1/2 tab daily for 3 days P REDNISONE 98888147775 No Longer Active Silvia Arnold APRN Active AZITHROMYCIN 250 MG ORAL TABS Take 2 tabs po today then 1 ta b po daily AZITHROMYCIN 26697739139 No Longer Active 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 AUGMENTIN 875-125 MG TAB 1 po BID x 10 days AMOXICILLIN- POT CLAVULANATE 41375697121 No Longer Active Adriana Bender LPN Active CHEWABLE CALCIUM 500-200-40 MG-UNT-MCG ORAL CHEW 1 chew tab bid 201 11/03/03 CALCIUM-VITAMIN D-VITAMIN K 59256294645 Active Silvia Arnold APRN Active EQ COMPLETE MULTIVIT ADULT 50+ ORAL TABS 1 tab po bid MULTIPLE VITAMINS-MINERALS 53850933986 Active Silvia Arnold APRN Act jairo HYDROCODONE-ACETAMINOPHEN 7.5-325 MG TABS TAKE ONE TAB EVERY 6 HOURS BY MOUTH NEEDED FOR PAIN HYDROCODONE-ACETAMINOPHEN 44786804488 Acti raheel العلي Active LORTAB 7.5-500 MG TABS take one po Q6 hours HYDROCODONE-ACETAMINOPHEN No Longer Active Nirmal Robbins RN Active [facility] MELATONIN 5-10 MG CR-TABS Take one by mouth daily at bedtime MELATONIN-PYRIDOXINE 54616678173 No Longer Active Bertrand Patel DO Active VITAMIN E 200 UNIT CAPS 1 cap po qd VITAMIN E 316 35593528 No Longer Active Bertrand Patel DO Active B-12 1000 MCG CAPS 1 tab daily CYANOCOBALAMIN 31 965262347 No Longer Active Bertrand Patel DO Active METFORMIN HCL 500 MG TABS 1 bid METFORMIN HCL 02366331664 No Longer Active Bertrand Patel DO Active FUROSEMIDE 20 MG TABS 1 pill by mouth daily if needed for edema FUROSEMIDE 60115591172 No Longer Active Bertrand Patel DO Act jairo PRAVASTATIN SODIUM 20 MG TABS 1 tablet by mouth daily at bedtime PRAVASTATIN SODIUM 94053451620 No Longer Active Bertrand Patel DO Active AUGMENTIN 875-125 MG TABS 1 pill by mouth twice daily AMOXICILLIN-POT CLAVULANATE 63247509088 No Longer Active Yoli Mercado MD PhD Active LEVAQUIN 500 MG TABS 1 pill by mouth daily LEVO FLOXACIN 89388353400 No Longer Active Yoli Mercado MD PhD Active AMLODIPINE BESYLATE 5 MG TABS 1 tablet by mouth daily for bl ood pressure AMLODIPINE BESYLATE 24758053784 Active Keysha Jones MA Active MICARDIS 80 MG TABS 1 tablet daily for blood pressure TELMISARTAN 69846437328 Active Keysha Jones MA Active MICARDIS HCT 80-12.5 MG TABS 1 qd TELMISARTA N-HCTZ 59367467760 No Longer Active Bertrand Patel DO Active CINNAMON ALPHA LIPOIC AC CMPLX CAPS by mouth twice a d ay in AM by mouth twice a day in PM ALPHA LIPOIC DOOI-YS-YBCKRZAB CAPS 999199 81696 No Longer Active Bertrand Patel DO Active AZITHROMYCIN 500 MG SOLR 1 po q day AZITHROMYCI N 97173659676 No Longer Active Bertrand Patel DO Active CYMBALTA 30 MG CPEP 1 cap by mouth daily DULOXE CATHI HCL 13582371483 No Longer Active Bertrand Patel DO Active CYMBALTA 60 MG CPEP 1 cap by mouth daily DULOXE CATHI HCL 31480734837 Active Keysha Jones MA Active WELLBUTRIN 75 MG TABS 2 times daily BUPROPION H CL 93950308131 No Longer Active Bertrand Patel DO Active PROAIR HFA 108 (90 BASE) MCG/ACT AERS take one to two puffs po Q4-6 hour prn cough and shortness of breath ALBUTEROL SULFATE 1361950525 2 Active Silvia Arnold APRN Active AZITHROMYCIN 250 MG TABS take 2 po today then take 1 po days 2-5 AZITHROMYCIN 63574995647 No Longer Active Adolfo OSORIO Active PERMETHRIN 5 % CREA apply neck to toes tonight a nd then rinse off in morning. repeat at 7 days PERMETHRIN 83284767002 No Longer Active Adolfo OSORIO Active AMOXICILLIN 500 MG CAPS 2 po BID x 10 days AMOX ICILLIN 68375495107 No Longer Active Yoli Mercado MD PhD Active ALPRAZOLAM 0.5 MG TAB 1 tab by mouth tid ALPRAZOL AM 90304823687 Active Nitza Mullins RPT,RMA Active INSUPEN ULTRAFIN 31G X 6 MM MISC USE DIRECTED 03/04 INSULIN PEN NEEDLE 55532495771 No Longer Active Bertrand Patel DO Active TRANSDERM-SCOP 1.5 MG PT72 1 patch applied behind ear q 3 day 20 04/13/28 SCOPOLAMINE BASE 11271088987 No Longer Active Bertrand Patel DO Active MACRODANTIN 100 MG CAPS one p.o. b.i.d. x2 weeks 03/04 NITROFURANTOIN MACROCRYSTAL 95576703715 No Longer Active Bertrand Patel DO Active MACRODANTIN 100 MG CAPS one p.o. b.i.d. x2 weeks 03/04 MACRODANTIN 100 MG CAPS 2751465 NITROFURANTOIN MACROCRYSTAL Inactive TRANSDERM-SCOP 1.5 MG PT72 [...] at 7 days PERMETHRIN 5 % CREA 260258 PERMETHRIN Inactive WELLBUTRIN 75 MG TABS 2 times daily WELLBUTRIN 75 MG TABS BUPROPION HCL Inactive CYMBALTA 30 MG CPEP 1 cap by mouth daily CYMBALTA 30 MG CPEP 209572 DULOXETINE HCL Inactive AZITHROMYCIN 500 MG SOLR 1 po q day ALTA THROMYCIN 500 MG SOLR 49107130673 AZITHROMYCIN Inactive CINNAMON ALPHA LIPOIC AC CMPLX CAPS by mouth twice a d ay in AM by mouth twice a day in PM CINNAMON ALPHA LIPOIC AC CMPLX CAPS ALPHA LIPOIC ZNCH-AG-FZSTUPFE CAPS Inactive MICARDIS HCT 80-12.5 MG TABS 1 qd MICARDI S HCT 80-12.5 MG TABS 057197 TELMISARTAN-HCTZ Inactive PRAVASTATIN SODIUM 20 MG TABS 1 tablet by mouth daily at bedtime PRAVASTATIN SODIUM 20 MG TABS 235698 PRAVASTATIN SODIUM Inactive FUROSEMIDE 20 MG TABS 1 pill by mouth daily if needed for edema FUROSEMIDE 20 MG TABS 475887 FUROSEMIDE Inactive METFORMIN HCL 500 MG TABS 1 bid METFORMIN HCL 500 MG TABS 122355 METFORMIN HCL Inactive B-12 1000 MCG CAPS 1 tab daily B-12 1000 MCG CAP S CYANOCOBALAMIN Inactive VITAMIN E 200 UNIT CAPS 1 cap po qd VITAMIN E 2 00 UNIT CAPS 5171666 VITAMIN E Inactive [facility] MELATONIN 5-10 MG CR-TABS Take one by mouth daily at bedtime [facility] MELATONIN 5-10 MG CR-TABS MELATONIN-PYRIDOXI NE Inactive LORTAB 7.5-500 MG TABS take one po Q6 hours LORTAB 7.5-500 MG TABS HYDROCODONE-ACETAMINOPHEN Inactive AZITHROMYCIN 250 MG ORAL TABS Take 2 tabs po today then 1 ta b po daily AZITHROMYCIN 250 MG ORAL TABS 7822294 AZITHROMYCI N Inactive SYMBICORT 160-4.5 MCG/ACT AERO 2 puffs BID SYMBICORT 160- 4.5 MCG/ACT AERO BUDESONIDE-FORMOTEROL FUMARATE Inactive ALBUTEROL SULFATE 0.083 % NEBU SOLN one vial per nebul izer every 4-6 hours as needed ALBUTEROL SULFATE 0.083 % NEBU SOLN 28373 8 ALBUTEROL SULFATE Inactive NEBULIZER MISC use as directed NEBULIZER MISC NEBULIZERS Inactive TESSALON PERLES 100 MG CAP 1 tablet by mouth 3 times daily 07/07 TESSALON PERLES 100 MG CAP 290682 BENZONATATE Inact jairo CYCLOBENZAPRINE HCL 10 MG TABS Take 1 tab TID PRN for muscle pain CYCLOBENZAPRINE HCL 10 MG TABS 291827 CYCLOBENZAPRINE HCL Inactive AUGMENTIN 875-125 MG TAB 1 po BID x 10 days AUGMENTIN 875- 125 MG TAB 657531 AMOXICILLIN-POT CLAVULANATE Inactive BACTROBAN 2 % CREAM Apply to affected area BID for up to 10 days BACTROBAN 2 % CREAM 533457 MUPIROCIN CALCIUM Inactive AMOXICILLIN 500 MG CAPS 2 po BID x 10 days AMOXICILLIN 500 MG CAPS 382782 AMOXICILLIN Inactive AZITHROMYCIN 250 MG TABS take 2 po today then take 1 po days 2-5 AZITHROMYCIN 250 MG TABS 5754561 AZITHROMYCIN Inactiv e LEVAQUIN 500 MG TABS 1 pill by mouth daily LEVAQUIN 500 MG TABS 073491 LEVOFLOXACIN Inactive AUGMENTIN 875-125 MG TABS 1 pill by mouth twice daily AUGMENTIN 875-125 MG TABS 002633 AMOXICILLIN-POT CLAVULANATE Inacti ve AUGMENTIN 875-125 MG TAB 1 po BID x 10 days AUGMENTIN 875- 125 MG TAB 488193 AMOXICILLIN-POT CLAVULANATE Inactive PREDNISONE 20 MG TAB take 3 tabs daily for 3 days , 2 tabs daily for 3 days, 1 tab daily for 3 days, 1/2 tab daily for 3 days PREDNISONE 20 MG TAB 096978 PREDNISONE Inactive CIPRO 500 MG TAB 1 tablet by mouth twice daily CIPRO 500 MG TAB 403919 CIPROFLOXACIN HCL Inactive Vital Signs Date Name [...] 5.8 % 4.3-6.0 cholesterol, serum 200 mg/dL 861-779 4792/07/22 triglyceride, serum, fasting 56 mg/dL 30-200 HDL cholesterol, serum 80 mg/dL 32-96 LDL cholesterol, serum 109 mg/dL 0-130 albumin/creatinine ratio, urine < 30 mg/g mg/g{creat} 0-2 9 TSH 1.16 m[iU]/mL 0.36-3.74 sodium, serum 142 mmol/L 493-107 4275/07/22 carbon dioxide, venous blood 33.1 mmol/L 21.0-32 [...] 0-19 Encounters Code Encounter Date Provider Facility CPT-43797 Level 3 Est. Patient 11:27:00 LOFT WORKER Ike Deluna MD [facility] CPT-70587 Level 3 Est. Patient 08:50:[address] LO[address] [facility] CPT-10199 Level 3 Est. Patient 10:04:13 CDT Bertrand marquez [facility] CPT-03157 Level 4 Est. Patient 16:02:[address] [facility] CPT-22014 Level 3 Est. Patient 13:04:54 LOFT WORKER Dangelo BARAJAS [facility]-31892 Level 3 Est. Patient 12:56:37 CDT Bertrand marquez [facility] CPT-08181 Level 3 Est. Patient 19:12:03 CDT Yoli tolbert MD PhD [facility]-53952 Level 3 Est. Patient 14:36:01 CDT Yoli tolbert MD [facility][note 3]-77327 Level 2 Est. Patient 08:00:22 CDT Jcarlos dc MD [facility]-89118 Level 3 Est. Patient 19:06:55 CDT Bertrand marquez [facility] CPT-37646 Level 3 Est. Patient 10:08:23 LOFT WORKER Bertrand marquez [facility] CPT-68300 Level 3 Est. Patient 16:37:54 LOFT WORKER Bertrand marquez [facility] CPT-80370 Level 3 Est. Patient 11:31:59 LOFT WORKER Bertrand marquez [facility] CPT-54982 Level 3 Est. Patient 10:20:08 CDT Adolfo villasenor [facility] CPT-56039 Level 3 Est. Patient 13:45:20 CDT Sanket buckley [facility] CPT-57406 Level 3 Est. Patient 12:51:06 CDT Adolfo villasenor [facility] CPT-97743 Level 3 Est. Patient 11:22:51 LOFT WORKER Yoli tolbert MD PhD [facility] CPT-47758 Level 3 Est. Patient 13:33:19 CDT Bertrand marquez DO [facility] Procedures Code Procedure Name Date Entry Date Standard Desc ription CPT-75916 Wound Culture - LAB USE ONLY 15:45:25 CDT 2 CPT-85519 Venipuncture Draw Fee 10:23:01 CDT CPT-J0696 Rocephin 1000 mg (Ceftriaxone) 16:20:30 LOFT WORKER CPT-11633 Abx/Therapy Injection 16:20:29 LOFT WORKER CPT-J0696 Rocephin 1gm Inj Solr 15:51:59 LOFT WORKER CPT-13798 Chest 2V Frontal and Lat 15:20:28 LOFT WORKER 07/22 CPT-38701 Breathing Tx 14:51:55 LOFT WORKER CPT-59282 Breathing Tx 09:57:16 LOFT WORKER CPT-50818 Knee comp 4/> V 11:58:06 LOFT WORKER
--- OUTSIDE RECORDS SUMMARY | 2019-11-13 10:11 | XMS REPORT | Clinical Summary ---
[...] day as needed for c ough BENZONATATE [id number] Active Ike Deluna MD Acti ve ZITHROMAX Z-MARTIN 250 MG TABS 2 today and then 1 daily for 4 days 201 12/01/06 AZITHROMYCIN 83247577091 Active Ike Deluna MD Active ADDERALL 10 MG ORAL TABS 1 tab twice daily AMPHETAMINE-DEXTROAMPHETAMINE 60547071662 Active Ike Deluna MD Active BACTROBAN 2 % CREAM Apply to affected area BID for up to 10 days MUPIROCIN CALCIUM 60992816421 No Longer Active Ike Deluna MD Active CIPRO 500 MG TAB 1 tablet by mouth twice daily CIPROFLOXACIN HCL 62390200820 No Longer Active Adriana Bender LPN Active AUGMENTIN 875-125 MG TAB 1 po BID x 10 days AMOXICILLIN- POT CLAVULANATE 93346062122 No Longer Active Adriana Bender LPN Active MODAFINIL 200 MG ORAL TABS Take 1/2 tab po in the am and 1/2 tab po at noon MODAFINIL 53991115038 Active Darlyn vega CYCLOBENZAPRINE HCL 10 MG TABS Take 1 tab TID PRN for muscle pain CYCLOBENZAPRINE HCL 70028194578 No Longer Active Bertrand Patel DO Ac tive TESSALON PERLES 100 MG CAP 1 tablet by mouth 3 times daily 07/07 BENZONATATE 66658013275 No Longer Active Bertrand Patel DO Ac tive NEBULIZER MISC use as directed NEBULIZERS 600697 37829 No Longer Active Bertrand Patel DO Active ALBUTEROL SULFATE 0.083 % NEBU SOLCammy one vial per nebul izer every 4-6 hours as needed ALBUTEROL SULFATE 41725320883 No Longer Active Bertrand Patel DO Active SYMBICORT 160-4.5 MCG/ACT AERO 2 puffs BID BUDESONIDE- FORMOTEROL FUMARATE 48881562205 No Longer Active Bertrand Patel DO Ac tive PREDNISONE 20 MG TAB take 3 tabs daily for 3 days , 2 tabs daily for 3 days, 1 tab daily for 3 days, 1/2 tab daily for 3 days P REDNISONE 15154206238 No Longer Active Silvia Arnold APRN Active AZITHROMYCIN 250 MG ORAL TABS Take 2 tabs po today then 1 ta b po daily AZITHROMYCIN 71100807810 No Longer Active Silvia gavin ORE CRUSHER Active AUGMENTIN 875-125 MG TAB 1 po BID x 10 days AMOXICILLIN- POT CLAVULANATE 54256780178 No Longer Active Adriana Bender LPN Active CHEWABLE CALCIUM 500-200-40 MG-UNT-MCG ORAL CHEW 1 chew tab bid 201 11/03/03 CALCIUM-VITAMIN D-VITAMIN K 11254273932 Active Silvia Arnold APRN Active EQ COMPLETE MULTIVIT ADULT 50+ ORAL TABS 1 tab po bid MULTIPLE VITAMINS-MINERALS 55060463659 Active Silvia Arnold APRN Act jairo HYDROCODONE-ACETAMINOPHEN 7.5-325 MG TABS TAKE ONE TAB EVERY 6 HOURS BY MOUTH NEEDED FOR PAIN HYDROCODONE-ACETAMINOPHEN 85844230382 Acti arheel العلي Active LORTAB 7.5-500 MG TABS take one po Q6 hours HYDROCODONE-ACETAMINOPHEN No Longer Active Nirmal Robbins RN Active [facility] MELATONIN 5-10 MG CR-TABS Take one by mouth daily at bedtime MELATONIN-PYRIDOXINE 58242983744 No Longer Active Bertrand Patel DO Active VITAMIN E 200 UNIT CAPS 1 cap po qd VITAMIN E 316 12827733 No Longer Active Bertrand Patel DO Active B-12 1000 MCG CAPS 1 tab daily CYANOCOBALAMIN 31 066218619 No Longer Active Bertrand Patel DO Active METFORMIN HCL 500 MG TABS 1 bid METFORMIN HCL 60738568664 No Longer Active Bertrand Patel DO Active FUROSEMIDE 20 MG TABS 1 pill by mouth daily if needed for edema FUROSEMIDE 78718258440 No Longer Active Bertrand Patel DO Act jairo PRAVASTATIN SODIUM 20 MG TABS 1 tablet by mouth daily at bedtime PRAVASTATIN SODIUM 01937647033 No Longer Active Bertrand Patel DO Active AUGMENTIN 875-125 MG TABS 1 pill by mouth twice daily AMOXICILLIN-POT CLAVULANATE 40260021921 No Longer Active Yoli Mercado MD PhD Active LEVAQUIN 500 MG TABS 1 pill by mouth daily LEVO FLOXACIN 65611115568 No Longer Active Yoli Mercado MD PhD Active AMLODIPINE BESYLATE 5 MG TABS 1 tablet by mouth daily for bl ood pressure AMLODIPINE BESYLATE 80887091118 Active Darlyn Mckinnonmerman Active MICARDIS 80 MG TABS 1 tablet daily for blood pressure TELMISARTAN 69768659203 Active Darlyn Monzon Active MICARDIS HCT 80-12.5 MG TABS 1 qd TELMISARTA N-HCTZ 21017738742 No Longer Active Bertrand Patel DO Active CINNAMON ALPHA LIPOIC AC CMPLX CAPS by mouth twice a d ay in AM by mouth twice a day in PM ALPHA LIPOIC ZEYR-GI-ENDGYHOR CAPS 416869 74279 No Longer Active Bertrand Patel DO Active AZITHROMYCIN 500 MG SOLR 1 po q day AZITHROMYCI N 46697248840 No Longer Active Bertrand Patel DO Active CYMBALTA 30 MG CPEP 1 cap by mouth daily DULOXE CATHI HCL 71825644375 No Longer Active Bertrand Patel DO Active CYMBALTA 60 MG CPEP 1 cap by mouth daily DULOXE CATHI HCL 68562899737 Active Keysha Jones MA Active WELLBUTRIN 75 MG TABS 2 times daily BUPROPION H CL 27275488141 No Longer Active Bertrand Patel DO Active PROAIR HFA 108 (90 BASE) MCG/ACT AERS take one to two puffs po Q4-6 hour prn cough and shortness of breath ALBUTEROL SULFATE 6434441591 2 Active Silvia Arnold APRN Active AZITHROMYCIN 250 MG TABS take 2 po today then take 1 po days 2-5 AZITHROMYCIN 32326957244 No Longer Active Adolfo OSORIO Active PERMETHRIN 5 % CREA apply neck to toes tonight a nd then rinse off in morning. repeat at 7 days PERMETHRIN 25004013807 No Longer Active Adolfo OSORIO Active AMOXICILLIN 500 MG CAPS 2 po BID x 10 days AMOX ICILLIN 47941611495 No Longer Active Yoli Mercado MD PhD Active ALPRAZOLAM 0.5 MG TAB 1 tab by mouth tid ALPRAZOL AM 05354999447 Active Nitza Mullins RPT,RMA Active INSUPEN ULTRAFIN 31G X 6 MM MISC USE DIRECTED 03/04 INSULIN PEN NEEDLE 17661533515 No Longer Active Bertrand Patel DO Active TRANSDERM-SCOP 1.5 MG PT72 1 patch applied behind ear q 3 day 20 04/13/28 SCOPOLAMINE BASE 05754762663 No Longer Active Bertrand Patel DO Active MACRODANTIN 100 MG CAPS one p.o. b.i.d. x2 weeks 03/04 NITROFURANTOIN MACROCRYSTAL 93003781150 No Longer Active Bertrand Patel DO Active CINNAMON ALPHA LIPOIC AC CMPLX CAPS by mouth twice a d ay in AM by mouth twice a day in PM CINNAMON ALPHA LIPOIC AC CMPLX CAPS ALPHA LIPOIC [id number] CAPS Inactive ALBUTEROL SULFATE 0.083 % NEBU SOLN one vial per nebul izer every 4-6 hours as needed ALBUTEROL SULFATE 0.083 % NEBU SOLN 50374 8 ALBUTEROL SULFATE Inactive AMOXICILLIN 500 MG CAPS 2 po BID x 10 days AMOXICILLIN 500 MG CAPS 644093 AMOXICILLIN Inactive CIPRO 500 MG TAB 1 tablet by mouth twice daily CIPRO 500 MG TAB 187709 CIPROFLOXACIN HCL Inactive CYCLOBENZAPRINE HCL 10 MG TABS Take 1 tab TID PRN for muscle pain CYCLOBENZAPRINE HCL 10 MG TABS 787063 CYCLOBENZAPRINE HCL Inactive FUROSEMIDE 20 MG TABS 1 pill by mouth daily if needed for edema FUROSEMIDE 20 MG TABS 238733 FUROSEMIDE Inactive MACRODANTIN 100 MG CAPS one p.o. b.i.d. x2 weeks 03/04 MACRODANTIN 100 MG CAPS 4697861 NITROFURANTOIN MACROCRYSTAL Inactive PREDNISONE 20 MG TAB take 3 tabs daily for 3 days , 2 tabs daily for 3 days, 1 tab daily for 3 days, 1/2 tab daily for 3 days PREDNISONE 20 MG TAB 374265 PREDNISONE Inactive VITAMIN E 200 UNIT CAPS 1 cap po qd VITAMIN E 2 00 UNIT CAPS 1670535 VITAMIN E Inactive WELLBUTRIN 75 MG TABS 2 times daily WELLBUTRIN 75 MG TABS BUPROPION HCL Inactive METFORMIN HCL 500 MG TABS 1 bid METFORMIN HCL 500 MG TABS 867399 METFORMIN HCL Inactive PERMETHRIN 5 % CREA apply neck to toes tonight a nd then rinse off in morning. repeat at 7 days PERMETHRIN 5 % CREA 796739 PERMETHRIN Inactive PRAVASTATIN SODIUM 20 MG TABS 1 tablet by mouth daily at bedtime PRAVASTATIN SODIUM 20 MG TABS 756717 PRAVASTATIN SODIUM Inactive TESSALON PERLES 100 MG CAP 1 tablet by mouth 3 times daily 07/07 TESSALON PERLES 100 MG CAP 595813 BENZONATATE Inact jairo LORTAB 7.5-500 MG TABS take one po Q6 hours LORTAB 7.5-500 MG TABS HYDROCODONE-ACETAMINOPHEN Inactive AUGMENTIN 875-125 MG TAB 1 po BID x 10 days AUGMENTIN 875- 125 MG TAB 699764 AMOXICILLIN-POT CLAVULANATE Inactive AUGMENTIN 875-125 MG TABS 1 pill by mouth twice daily AUGMENTIN 875-125 MG TABS 938789 AMOXICILLIN-POT CLAVULANATE Inacti ve AUGMENTIN 875-125 MG TAB 1 po BID x 10 days AUGMENTIN 875- 125 MG TAB 864245 AMOXICILLIN-POT CLAVULANATE Inactive NEBULIZER MISC use as directed NEBULIZER MISC NEBULIZERS Inactive LEVAQUIN 500 MG TABS 1 pill by mouth daily LEVAQUIN 500 MG TABS 742507 LEVOFLOXACIN Inactive AZITHROMYCIN 250 MG TABS take 2 po today then take 1 po days 2-5 AZITHROMYCIN 250 MG TABS 6974292 AZITHROMYCIN Inactiv e AZITHROMYCIN 250 MG ORAL TABS Take 2 tabs po today then 1 ta b po daily AZITHROMYCIN 250 MG ORAL TABS 0120994 AZITHROMYCI N Inactive AZITHROMYCIN 500 MG SOLR 1 po q day ALTA THROMYCIN 500 MG SOLR 78912023849 AZITHROMYCIN Inactive BACTROBAN 2 % CREAM Apply to affected area BID for up to 10 days BACTROBAN 2 % CREAM 208555 MUPIROCIN CALCIUM Inactive MICARDIS HCT 80-12.5 MG TABS 1 qd MICARDI S HCT 80-12.5 MG TABS 562401 TELMISARTAN-HCTZ Inactive CYMBALTA 30 MG CPEP 1 cap by mouth daily CYMBALTA 30 MG CPEP 838642 DULOXETINE HCL Inactive SYMBICORT 160-4.5 MCG/ACT AERO [...] applied behind ear q 3 day 20 11/28 TRANSDERM-SCOP 1.5 MG PT72 SCOPOLAMINE BASE Inac [...] 1.16 m[iU]/mL 0.36-3.74 sodium, serum 142 mmol/L 203-300 0366/07/22 carbon dioxide, venous blood 33.1 mmol/L 21.0-32 [...] 5.8 % 4.3-6.0 cholesterol, serum 200 mg/dL 335-430 6592/07/22 triglyceride, serum, fasting 56 mg/dL 30-200 HDL [...] 0-19 Encounters Code Encounter Date Provider Facility CPT-00127 Level 3 Est. Patient 11:27:00 SPEED READING TEACHER Ike Deluna MD [facility] CPT-35589 Level 3 Est. Patient 08:50:57 SPEED READING TEACHER Dangelo ORE CRUSHER [facility] CPT-82292 Level 3 Est. Patient 10:04:13 CDT Bertrand marquez [facility] CPT-82120 Level 4 Est. Patient 16:02:10 SPEED READING TEACHER Dangelo [facility] CPT-97722 Level 3 Est. Patient 13:04:54 SPEED READING TEACHER Dangelo [facility] CPT-27276 Level 3 Est. Patient 12:56:37 CDT Bertrand marquez [facility] CPT-31583 Level 3 Est. Patient 19:12:03 CDT Yoli tolbert MD PhD [facility] CPT-40428 Level 3 Est. Patient 14:36:01 CDT Yoli tolbert MD [facility] CPT-53710 Level 2 Est. Patient 08:00:22 CDT Jcarlos dc MD [facility] CPT-89359 Level 3 Est. Patient 19:06:55 CDT Bertrand marquez [facility] CPT-33987 Level 3 Est. Patient 10:08:23 SPEED READING TEACHER Bertrand marquez [facility] CPT-74432 Level 3 Est. Patient 16:37:54 SPEED READING TEACHER Bertrand marquez [facility] CPT-94410 Level 3 Est. Patient 11:31:59 SPEED READING TEACHER Bertrand marquez [facility] CPT-95412 Level 3 Est. Patient 10:20:08 CDT Demie Ahl jacklyn [facility] CPT-84508 Level 3 Est. Patient 13:45:20 CDT Sanket Ankit buckley [facility] CPT-51801 Level 3 Est. Patient 12:51:06 CDT Adolfo Jerzy villasenor [facility] CPT-25581 Level 3 Est. Patient 11:22:51 SPEED READING TEACHER Yoli tolbert MD PhD [facility] CPT-81596 Level 3 Est. Patient 13:33:19 CDT Bertrand Sabillon ee DO [facility] Procedures Code Procedure Name Date Entry Date Standard Desc ription CPT-98692 Wound Culture - LAB USE ONLY 15:45:25 CDT 2 CPT-91370 Venipuncture Draw Fee 10:23:01 CDT CPT-J0696 Rocephin 1000 mg (Ceftriaxone) 16:20:30 SPEED READING TEACHER CPT-87981 Abx/Therapy Injection 16:20:29 SPEED READING TEACHER CPT-J0696 Rocephin 1gm Inj Solr 15:51:59 SPEED READING TEACHER CPT-90349 Chest 2V Frontal and Lat 15:20:28 SPEED READING TEACHER 07/22 CPT-61811 Breathing Tx 14:51:55 SPEED READING TEACHER CPT-87479 Breathing Tx 09:57:16 SPEED READING TEACHER CPT-97288 Knee comp 4/> V 11:58:06 SPEED READING TEACHER
--- OUTSIDE RECORDS SUMMARY | 2019-11-13 10:12 | XMS REPORT | Clinical Summary ---
Author Author Admin, Enrique Adamson Organization [employer] Address Unknown Phone Unavailable Allergies, Adverse Reactions, [...] 09/09/28 EDEMA LEG ICD-782.3 Inactive Adele Feldman F[employer]ERGLASS TECHNICIAN 201 01/01/02 SHORTNESS OF BREATH ICD-786.05 Inactive Yoli Mercado MD PhD RIB PAIN, RIGHT SIDED ICD-786.50 Inactive Yoli Mercado MD PhD KNEE PAIN, RIGHT ICD-719.46 Inactive Adele Esqueda ghn F[employer]ERGLASS TECHNICIAN Knee pain, left ICD-719.46 Inactive Adele Holden hn F[employer]ERGLASS TECHNICIAN Pharyngitis-Acute ICD-462 Inactive Bertrand Redmond DO Polyuria ICD-788.42 Inactive Yoli Mercado MD P hD Cellulitis, leg, right ICD-682.6 Inactive Yuki Deluna MD Foreign body, ear ICD-931 Inactive Yoli salazar MD PhD Fatigue ICD-780.79 Inactive Ike Deluna MD 201 12/01/06 Headache ICD-784.0 Inactive Adele Feldman F[employer]ERGL[employer] TECHNICIAN 2017 Cough ICD-786.2 Inactive Adele Feldman F[employer]ERGLASS TECHNICIAN 06/04 SINUSITIS, ACUTE ICD-461.9 Inactive Ike lange MD Fatigue ICD-780.79 Inactive Adele Feldman F[employer]ERGLASS TECHNICIAN 2017 Bronchitis acute with bronchospasm ICD-466.0 I nactive Adele Feldman F[employer]ERGLASS TECHNICIAN Animal bite ICD-919.8 Inactive Adele Feldman LP N Mycoplasma infection ICD-041.81 Inactive Anit a Feldman F[employer]ERGLASS TECHNICIAN Amenorrhea, secondary ICD-626.0 Inactive Ani quinton Downsn F[employer]ERGLASS TECHNICIAN Medication List Medication Instructions Start Date Stop Date Generic Name NDC Status Provider Patient Instruction ADDERALL 10 MG ORAL TABLET 1 tab twice daily 2 AMPHETAMINE-DEXTROAMPHETAMINE 28753421712 No Longer Active Nitza Phi llips Scribe Active ZITHROMAX Z-MARTIN 250 MG ORAL TABLET 2 today and then 1 daily for 4 days AZITHROMYCIN 86548171114 No Longer Active Nitza Osman lips Scribe Active BENZONATATE 200 MG ORAL CAPSULE 1 three times a day as neede d for cough BENZONATATE 07179696851 No Longer Active Nitza Osman lips Scribe Active VITAMIN D3 43673 UNIT ORAL CAPSULE 1 pill Week x 4 mo nths for vitamin D deficiency/osteoporosis CHOLECALCIFEROL 72788680468 N o Longer Active Layla Mcmullen Active BACTROBAN 2 % EXTERNAL CREAM Apply to affected area BID for up to 10 days MUPIROCIN CALCIUM 48845698498 No Longer Active Ike Deluna MD Active CIPRO 500 MG ORAL TABLET 1 tablet by mouth twice daily CIPROFLOXACIN HCL 66369384075 No Longer Active Adriana Bender LPN Active AUGMENTIN 875-125 MG ORAL TABLET 1 po BID x 10 days 18/04/06 AMOXICILLIN-POT CLAVULANATE 72851267472 No Longer Active Adriana Bender LPN Active MODAFINIL 200 MG ORAL TABLET Take 1/2 tab po in the am and 1 /2 tab po at noon MODAFINIL 62508843539 Active Bertradn Patel DO Ac tive CYCLOBENZAPRINE HCL 10 MG ORAL TABLET Take 1 tab TID PRN for mus triston pain CYCLOBENZAPRINE HCL 03959605112 No Longer Active Bertrand Patel DO Active TESSALON PERLES 100 MG ORAL CAPSULE 1 tablet by mouth 3 times da juan pablo BENZONATATE 00850529919 No Longer Active Bertrand Patel DO Ac tive NEBULIZER use as directed NEBULIZERS 87513754585 No Longer Active Bertrand Patel DO Active ALBUTEROL SULFATE (2.5 MG/3ML) 0.083% INHALATION NEBUL IZATION SOLUTION one vial per nebulizer every 4-6 hours as needed ALBUTERO L SULFATE 58514814561 No Longer Active Bertrand Patel DO Active SYMBICORT 160-4.5 MCG/ACT INHALATION AEROSOL 2 puffs BID 9 BUDESONIDE-FORMOTEROL FUMARATE 72565937519 No Longer Active Bertrand Patel DO Active PREDNISONE 20 MG ORAL TABLET take 3 tabs daily for 3 d ays, 2 tabs daily for 3 days, 1 tab daily for 3 days, 1/2 tab daily for 3 days 08/02 PREDNISONE 16918389195 No Longer Active Silvia Arnold GOVERNMENT SERVICES PROFESSIONAL Acti ve AZITHROMYCIN 250 MG ORAL TABLET Take 2 tabs po today then 1 tab po daily AZITHROMYCIN 46997606579 No Longer Active Silvia gavin [employer]OVERNMENT SERVICES PROFESSIONAL Active AUGMENTIN 875-125 MG ORAL TABLET 1 po BID x 10 days 20 19/07/13 AMOXICILLIN-POT CLAVULANATE 96653803266 No Longer Active Adriana Bender LPN Active CHEWABLE CALCIUM 500-200-40 MG-UNT-MCG ORAL TABLET CHEWABLE 1 chew tab bid CALCIUM-VITAMIN D-VITAMIN K 85211936192 Active Silvia garlandgypsy GOVERNMENT SERVICES PROFESSIONAL Active EQ COMPLETE MULTIVIT ADULT 50+ ORAL TABLET 1 tab po bid MULTIPLE VITAMINS-MINERALS 73036197707 Active Silvia Arnold GOVERNMENT SERVICES PROFESSIONAL Act jairo HYDROCODONE-ACETAMINOPHEN 7.5-325 MG ORAL TABLET TAKE ONE TAB EVERY 6 HOURS BY MOUTH NEEDED FOR PAIN HYDROCODONE-ACETAMINOPHEN 004 05640369 Active Adele Feldman F[employer]ERGLASS TECHNICIAN Active LORTAB 7.5-500 MG ORAL TABLET take one po Q6 hours 201 09/12/01 HYDROCODONE-ACETAMINOPHEN 11324689690 No Longer Active Nirmal Robbins RN Active [facility] MELATONIN 5-10 MG ORAL TABLET EXTENDED RELEASE Jair e one by mouth daily at bedtime MELATONIN-PYRIDOXINE 73834690848 No Longer Acti ve Bertrand Patel DO Active VITAMIN E 200 UNIT ORAL CAPSULE 1 cap po qd VITAM IN E 34118909135 No Longer Active Bertrand Patel DO Active B-12 1000 MCG ORAL CAPSULE 1 tab daily CYANOCOB ALAMIN 42121252156 No Longer Active Bertrand Patel DO Active METFORMIN HCL 500 MG ORAL TABLET 1 bid METFOR MIN HCL 60332830588 No Longer Active Bertrand Patel DO Active FUROSEMIDE 20 MG ORAL TABLET 1 pill by mouth daily if needed for edema FUROSEMIDE 93336909428 No Longer Active Bertrand Patel DO Active PRAVASTATIN SODIUM 20 MG ORAL TABLET 1 tablet by mouth daily at bedtime PRAVASTATIN SODIUM 96667269232 No Longer Active Bertrand Patel DO Active AUGMENTIN 875-125 MG ORAL TABLET 1 pill by mouth twice daily 201 09/10/00 AMOXICILLIN-POT CLAVULANATE 20152652142 No Longer Active Yoli Mercado MD PhD Active LEVAQUIN 500 MG ORAL TABLET 1 pill by mouth daily 2013 LEVOFLOXACIN 51535319702 No Longer Active Yoli Mercado MD PhD Acti ve AMLODIPINE BESYLATE 5 MG ORAL TABLET 1 tablet by mouth daily for blood pressure AMLODIPINE BESYLATE 28957376600 Active Bertrand Patel DO Active MICARDIS 80 MG ORAL TABLET 1 tablet daily for blood pressure 07/30 TELMISARTAN 71544632574 Active Bertrand Patel DO Active MICARDIS HCT 80-12.5 MG ORAL TABLET 1 qd TELMISARTAN-HCTZ 08018864857 No Longer Active Bertrand Patel DO Active CINNAMON ALPHA LIPOIC AC CMPLX CAPSULE by mouth twice a day in AM by mouth twice a day in PM ALPHA LIPOIC [id number]-CW-[id number] CA PS 45352573993 No Longer Active Bertrand Patel DO Active AZITHROMYCIN 500 MG INTRAVENOUS SOLUTION RECONSTITUTED 1 po q da y AZITHROMYCIN 97474314220 No Longer Active Bertrand Patel DO A ctive CYMBALTA 30 MG ORAL CAPSULE DELAYED RELEASE PARTICLES 1 cap by mouth daily DULOXETINE HCL 62322865332 No Longer Active Bertrand marquez DO Active CYMBALTA 60 MG ORAL CAPSULE DELAYED RELEASE PARTICLES 1 cap by mouth daily DULOXETINE HCL 30379273489 Active Bertrand Patel DO Active WELLBUTRIN 75 MG ORAL TABLET 2 times daily BUPR OPION HCL 21562265790 No Longer Active Bertrand Patel DO Active PROAIR HFA 108 (90 Base) MCG/ACT INHALATION AEROSOL SO LUTION take one to two puffs po Q4-6 hour prn cough and shortness of breath ALBUTEROL SULFATE 44758889478 Active Silvia Arnold APRN Active AZITHROMYCIN 250 MG ORAL TABLET take 2 po today then take 1 po days 2-5 AZITHROMYCIN 44067247764 No Longer Active Adolfo OSORIO Active PERMETHRIN 5 % EXTERNAL CREAM apply neck to toes tonig ht and then rinse off in morning. repeat at 7 days PERMETHRIN 58836478635 No Longer Active Adolfo OSORIO Active AMOXICILLIN 500 MG ORAL CAPSULE 2 po BID x 10 days 201 07/15/00 AMOXICILLIN 17252493761 No Longer Active Yoli Mercado MD PhD Acti ve ALPRAZOLAM 0.5 MG ORAL TABLET 1 tab by mouth tid ALPRAZOLAM 56832397412 Active Nitza Mullins LPN Active INSUPEN ULTRAFIN 31G X 6 MM USE DIRECTED INSULIN PEN NEEDLE 91952167509 No Longer Active Bertrand Patel DO Active TRANSDERM-SCOP (1.5 MG) 1 MG/3DAYS TRANSDERMAL PATCH 7 2 HOUR 1 patch applied behind ear q 3 day SCOPOLAMINE BASE 09310650359 No Lo nger Active Bertrand Patel DO Active MACRODANTIN 100 MG ORAL CAPSULE one p.o. b.i.d. x2 weeks NITROFURANTOIN MACROCRYSTAL 24368089540 No Longer Active Bertrand Patel DO Active MACRODANTIN 100 MG ORAL CAPSULE one p.o. b.i.d. x2 weeks MACRODANTIN 100 MG ORAL CAPSULE 2841390 NITROFURANTOIN MACROCRYSTAL Inactive TRANSDERM-SCOP (1.5 MG) 1 [...] days PERMETHRIN 5 % EXTER NAL CREAM 710330 PERMETHRIN Inactive WELLBUTRIN 75 MG ORAL TABLET 2 times daily WELLBUTRIN 75 MG ORAL TABLET 912716 BUPROPION HCL Inactive CYMBALTA 30 MG ORAL CAPSULE DELAYED RELEASE PARTICLES 1 cap by mouth daily CYMBALTA 30 MG ORAL CAPSULE DELAYED RELE ASE PARTICLES 942883 DULOXETINE HCL Inactive AZITHROMYCIN 500 MG INTRAVENOUS SOLUTION RECONSTITUTED 1 po q da y AZITHROMYCIN 500 MG INTRAVENOUS SOLUTION RECONSTITUTED 81101 040248 AZITHROMYCIN Inactive CINNAMON ALPHA LIPOIC AC CMPLX CAPSULE by mouth twice a day in AM by mouth twice a day in PM CINNAMON ALPHA LIPOIC AC CMPLX CAPSULE ALPHA LIPOIC ISEC-[id number]-[id number] CAPS Inactive MICARDIS HCT 80-12.5 MG ORAL TABLET 1 qd 07/30 MICARDIS HCT 80-12.5 MG ORAL TABLET 126325 TELMISARTAN-HCTZ Inactive PRAVASTATIN SODIUM 20 MG ORAL TABLET 1 tablet by mouth daily at bedtime PRAVASTATIN SODIUM 20 MG ORAL TABLET 200604 PRAVASTATIN SODIUM Inactive FUROSEMIDE 20 MG ORAL TABLET 1 pill by mouth daily if needed for edema FUROSEMIDE 20 MG ORAL TABLET 208744 FUROSEMIDE Inactive METFORMIN HCL 500 MG ORAL TABLET 1 bid METFORMIN HCL 500 MG ORAL TABLET 082525 METFORMIN HCL Inactive B-12 1000 MCG ORAL CAPSULE 1 tab daily B -12 1000 MCG ORAL CAPSULE CYANOCOBALAMIN Inactive VITAMIN E 200 UNIT ORAL CAPSULE 1 cap po qd 1 VITAMIN E 200 UNIT ORAL CAPSULE 3893876 VITAMIN E Inactive [facility] MELATONIN 5-10 MG ORAL TABLET EXTENDED RELEASE Jair e one by mouth daily at bedtime [facility] MELATONIN 5-10 M G ORAL TABLET EXTENDED RELEASE MELATONIN-PYRIDOXINE Inactive LORTAB 7.5-500 MG ORAL TABLET take one po Q6 hours 201 09/12/01 LORTAB 7.5-500 MG ORAL TABLET 138452 HYDROCODONE-ACETAMINOPHEN Inactive AZITHROMYCIN 250 MG ORAL TABLET Take 2 tabs po today then 1 tab po daily AZITHROMYCIN 250 MG ORAL TABLET 990898 AZITHROMY BERNARDO Inactive SYMBICORT 160-4.5 MCG/ACT INHALATION AEROSOL 2 puffs BID 9 SYMBICORT 160-4.5 MCG/ACT INHALATION AEROSOL BUDESONIDE-FORM OTEROL FUMARATE Inactive ALBUTEROL SULFATE (2.5 MG/3ML) 0.083% INHALATION NEBUL IZATION SOLUTION one vial per nebulizer every 4-6 hours as needed ALBUTEROL SULFATE (2.5 MG/3ML) 0.083% INHALATION NEBULIZATION SOLUTION 994505 ALBUTER OL SULFATE Inactive NEBULIZER use as directed NEBULIZER NEBULI ZERS Inactive TESSALON PERLES 100 MG ORAL CAPSULE 1 tablet by mouth 3 times da juan pablo TESSALON PERLES 100 MG ORAL CAPSULE 531004 BENZONATATE Inactive CYCLOBENZAPRINE HCL 10 MG ORAL TABLET Take 1 tab TID PRN for mus triston pain CYCLOBENZAPRINE HCL 10 MG ORAL TABLET 883120 CYCLOBENZA ANUJA HCL Inactive AUGMENTIN 875-125 MG ORAL TABLET 1 po BID x 10 days 20 18/04/06 AUGMENTIN 875-125 MG ORAL TABLET 450088 AMOXICILLIN-POT CLAVULANATE Inactive BACTROBAN 2 % EXTERNAL CREAM Apply to affected area BID for up to 10 days BACTROBAN 2 % EXTERNAL CREAM 067566 MUPIROCIN CA LCIUM Inactive VITAMIN D3 14228 UNIT ORAL CAPSULE 1 pill Week x 4 mo nths for vitamin D deficiency/osteoporosis VITAMIN D3 73576 UNIT ORAL CAPSULE CHOLECALCIFEROL Inactive BENZONATATE 200 MG ORAL CAPSULE 1 three times a day as neede d for cough BENZONATATE 200 MG ORAL CAPSULE 088485 BENZONATA TE Inactive ZITHROMAX Z-MARTIN 250 MG ORAL TABLET 2 today and then 1 daily for 4 days ZITHROMAX Z-MARTIN 250 MG ORAL TABLET 200088 AZITHR OMYCIN Inactive ADDERALL 10 MG ORAL TABLET 1 tab twice daily 2 ADDERALL 10 MG ORAL TABLET 051100 AMPHETAMINE-DEXTROAMPHETAMINE Inactive AMOXICILLIN 500 MG ORAL CAPSULE 2 po BID x 10 days 201 07/15/00 AMOXICILLIN 500 MG ORAL CAPSULE 274201 AMOXICILLIN Inactive AZITHROMYCIN 250 MG ORAL TABLET take 2 po today then take 1 po days 2-5 AZITHROMYCIN 250 MG ORAL TABLET 399152 AZITHROMY BERNARDO Inactive LEVAQUIN 500 MG ORAL TABLET 1 pill by mouth daily 2013 LEVAQUIN 500 MG ORAL TABLET 249847 LEVOFLOXACIN Inactive AUGMENTIN 875-125 MG ORAL TABLET 1 pill by mouth twice daily 201 09/10/00 AUGMENTIN 875-125 MG ORAL TABLET 390493 AMOXICILLIN-POT CLAVULANATE Inactive AUGMENTIN 875-125 MG ORAL TABLET 1 po BID x 10 days 19/07/13 AUGMENTIN 875-125 MG ORAL TABLET 166001 AMOXICILLIN-POT CLAVULANATE Inactive PREDNISONE 20 MG ORAL TABLET take 3 tabs daily for 3 d ays, 2 tabs daily for 3 days, 1 tab daily for 3 days, 1/2 tab daily for 3 days 08/02 PREDNISONE 20 MG ORAL TABLET 257136 PREDNISONE Inactive CIPRO 500 MG ORAL TABLET 1 tablet by mouth twice daily CIPRO 500 MG ORAL TABLET 636056 CIPROFLOXACIN HCL Inactive Vital Signs Date Name [...] 0-19 Encounters Code Encounter Date Provider Facility CPT-98635 Level 4 Est. Patient 15:33:35 PROFESSOR OF LANGUAGES Bertrand marquez [facility] CPT-68876 Level 4 Est. Patient 12:31:54 CDT Bertrand marquez [facility] CPT-59422 Level 3 Est. Patient 11:27:00 PROFESSOR OF LANGUAGES Ike Deluna MD [facility] CPT-10319 Level 3 Est. Patient 08:50:57 PROFESSOR OF LANGUAGES Dangelo [employer]ERN[employer] SERVICES PROFESSIONAL [facility] CPT-90054 Level 3 Est. Patient 10:04:13 CDT Bertrand marquez [facility] CPT-63590 Level 4 Est. Patient 16:02:10 PROFESSOR OF LANGUAGES Dangelo [employer]ERN[employer] SERVICES PROFESSIONAL [facility] CPT-99250 Level 3 Est. Patient 13:04:54 PROFESSOR OF LANGUAGES Dangelo [employer]ERN[employer] SERVICES PROFESSIONAL [facility] CPT-52806 Level 3 Est. Patient 12:56:37 CDT Bertrand marquez [facility] CPT-42600 Level 3 Est. Patient 19:12:03 CDT Yoli tolbert MD [facility] CPT-95024 Level 3 Est. Patient 14:36:01 CDT Yoli tolbert MD [facility] CPT-25035 Level 2 Est. Patient 08:00:22 CDT Jcarlos dc MD [facility] CPT-44351 Level 3 Est. Patient 19:06:55 CDT Bertrand marquez [facility] CPT-90518 Level 3 Est. Patient 10:08:23 PROFESSOR OF LANGUAGES Bertrand marquez [facility] CPT-17530 Level 3 Est. Patient 16:37:54 PROFESSOR OF LANGUAGES Bertrand marquez [facility] CPT-30458 Level 3 Est. Patient 11:31:59 PROFESSOR OF LANGUAGES Bertrand marquez [facility] CPT-08910 Level 3 Est. Patient 10:20:08 CDT Adolfo villasenor [facility] CPT-85669 Level 3 Est. Patient 13:45:20 CDT Sanket buckley [facility] CPT-57105 Level 3 Est. Patient 12:51:06 CDT Adolfo villasenor [facility] CPT-32975 Level 3 Est. Patient 11:22:51 PROFESSOR OF LANGUAGES Yoli tolbert MD [facility] CPT-59371 Level 3 Est. Patient 13:33:19 CDT Bertrand marquez [facility] Procedures Code Procedure Name Date Entry Date Standard Desc ription CPT-24136 Wound Culture - LAB USE ONLY 15:45:25 CDT 2 CPT-23293 Venipuncture Draw Fee 10:23:01 CDT CPT-J0696 Rocephin 1000 mg (Ceftriaxone) 16:20:30 PROFESSOR OF LANGUAGES CPT-27582 Abx/Therapy Injection 16:20:29 PROFESSOR OF LANGUAGES CPT-J0696 Rocephin 1gm Inj Solr 15:51:59 PROFESSOR OF LANGUAGES CPT-29334 Chest 2V Frontal and Lat 15:20:28 PROFESSOR OF LANGUAGES 07/22 CPT-58561 Breathing Tx 14:51:55 PROFESSOR OF LANGUAGES CPT-33359 Breathing Tx 09:57:16 PROFESSOR OF LANGUAGES CPT-38207 Knee comp 4/> V 11:58:06 PROFESSOR OF LANGUAGES
--- OUTSIDE RECORDS SUMMARY | 2019-11-13 10:12 | XMS REPORT | Clinical Summary ---
Author Author Admin, Enrique Adamson Organization [employer] Address Unknown Phone Unavailable Allergies, Adverse Reactions, [...] 09/09/28 EDEMA LEG ICD-782.3 Inactive Adele Feldman CIGAR HEAD PERFORATOR 201 01/01/02 SHORTNESS OF BREATH ICD-786.05 Inactive Yoli Mercado MD PhD RIB PAIN, RIGHT SIDED ICD-786.50 Inactive Yoli Mercado MD PhD KNEE PAIN, RIGHT ICD-719.46 Inactive Adele Esqueda ghn CIGAR HEAD PERFORATOR Knee pain, left ICD-719.46 Inactive Adele Holden hn CIGAR HEAD PERFORATOR Pharyngitis-Acute ICD-462 Inactive Bertrand Redmond DO Polyuria ICD-788.42 Inactive Yoli Mercado MD P hD Cellulitis, leg, right ICD-682.6 Inactive Yuki Deluna MD Foreign body, ear ICD-931 Inactive Yoli salazar MD PhD Fatigue ICD-780.79 Inactive Ike Deluna MD 201 12/01/06 Headache ICD-784.0 Inactive Adele Feldman CIGAR HEAD PERFORATOR 2017 Cough ICD-786.2 Inactive Adele Feldman CIGAR HEAD PERFORATOR 06/04 SINUSITIS, ACUTE ICD-461.9 Inactive Ike lange MD Fatigue ICD-780.79 Inactive Adele Feldman CIGAR HEAD PERFORATOR 2017 Bronchitis acute with bronchospasm ICD-466.0 I nactive Adele Feldman CIGAR HEAD PERFORATOR Animal bite ICD-919.8 Inactive Adele Feldman LP N Mycoplasma infection ICD-041.81 Inactive Anit a Feldman CIGAR HEAD PERFORATOR Amenorrhea, secondary ICD-626.0 Inactive Ani quinton Downsn CIGAR HEAD PERFORATOR Medication List Medication Instructions Start Date Stop Date Generic Name NDC Status Provider Patient Instruction ADDERALL 10 MG ORAL TABLET 1 tab twice daily 2 AMPHETAMINE-DEXTROAMPHETAMINE 75021963364 No Longer Active Nitza Phi llips Scribe Active ZITHROMAX Z-MARTIN 250 MG ORAL TABLET 2 today and then 1 daily for 4 days AZITHROMYCIN 28655577315 No Longer Active Nitza Osman lips Scribe Active BENZONATATE 200 MG ORAL CAPSULE 1 three times a day as neede d for cough BENZONATATE 26655681724 No Longer Active Nitza Osman lips Scribe Active VITAMIN D3 46397 UNIT ORAL CAPSULE 1 pill Week x 4 mo nths for vitamin D deficiency/osteoporosis CHOLECALCIFEROL 35113025195 N o Longer Active Layla Mcmullen Active BACTROBAN 2 % EXTERNAL CREAM Apply to affected area BID for up to 10 days MUPIROCIN CALCIUM 56776708880 No Longer Active Ike Deluna MD Active CIPRO 500 MG ORAL TABLET 1 tablet by mouth twice daily CIPROFLOXACIN HCL 55599037745 No Longer Active Adriana Bender LPN Active AUGMENTIN 875-125 MG ORAL TABLET 1 po BID x 10 days 18/04/06 AMOXICILLIN-POT CLAVULANATE 68686145567 No Longer Active Adriana Bender LPN Active MODAFINIL 200 MG ORAL TABLET Take 1/2 tab po in the am and 1 /2 tab po at noon MODAFINIL 31298151568 Active Bertrand Patel DO Ac tive CYCLOBENZAPRINE HCL 10 MG ORAL TABLET Take 1 tab TID PRN for mus triston pain CYCLOBENZAPRINE HCL 80409799895 No Longer Active Bertrand Patel DO Active TESSALON PERLES 100 MG ORAL CAPSULE 1 tablet by mouth 3 times da juan pablo BENZONATATE 23756129712 No Longer Active Bertrand Patel DO Ac tive NEBULIZER use as directed NEBULIZERS 76941909886 No Longer Active Bertrand Patel DO Active ALBUTEROL SULFATE (2.5 MG/3ML) 0.083% INHALATION NEBUL IZATION SOLUTION one vial per nebulizer every 4-6 hours as needed ALBUTERO L SULFATE 38148083577 No Longer Active Bertrand Patel DO Active SYMBICORT 160-4.5 MCG/ACT INHALATION AEROSOL 2 puffs BID 9 BUDESONIDE-FORMOTEROL FUMARATE 37768292606 No Longer Active Bertrand Patel DO Active PREDNISONE 20 MG ORAL TABLET take 3 tabs daily for 3 d ays, 2 tabs daily for 3 days, 1 tab daily for 3 days, 1/2 tab daily for 3 days 08/02 PREDNISONE 61872218405 No Longer Active Silvia Arnold CREPE BOX TENDER Acti ve AZITHROMYCIN 250 MG ORAL TABLET Take 2 tabs po today then 1 tab po daily AZITHROMYCIN 95630751534 No Longer Active Silvia gavin CREPE BOX TENDER Active AUGMENTIN 875-125 MG ORAL TABLET 1 po BID x 10 days 20 19/07/13 AMOXICILLIN-POT CLAVULANATE 10554004503 No Longer Active Adriana Bender LPN Active CHEWABLE CALCIUM 500-200-40 MG-UNT-MCG ORAL TABLET CHEWABLE 1 chew tab bid CALCIUM-VITAMIN D-VITAMIN K 40747136861 Active Silvia garlandgypsy CREPE BOX TENDER Active EQ COMPLETE MULTIVIT ADULT 50+ ORAL TABLET 1 tab po bid MULTIPLE VITAMINS-MINERALS 48231017443 Active Silvia Arnold CREPE BOX TENDER Act jairo HYDROCODONE-ACETAMINOPHEN 7.5-325 MG ORAL TABLET TAKE ONE TAB EVERY 6 HOURS BY MOUTH NEEDED FOR PAIN HYDROCODONE-ACETAMINOPHEN 004 95857184 Active Adele Feldman CIGAR HEAD PERFORATOR Active LORTAB 7.5-500 MG ORAL TABLET take one po Q6 hours 201 09/12/01 HYDROCODONE-ACETAMINOPHEN 54136423138 No Longer Active Nirmal Robbins RN Active [facility] MELATONIN 5-10 MG ORAL TABLET EXTENDED RELEASE Jair e one by mouth daily at bedtime MELATONIN-PYRIDOXINE 78976691930 No Longer Acti ve Bertrand Patel DO Active VITAMIN E 200 UNIT ORAL CAPSULE 1 cap po qd VITAM IN E 51757277873 No Longer Active Bertrand Patel DO Active B-12 1000 MCG ORAL CAPSULE 1 tab daily CYANOCOB ALAMIN 16857922974 No Longer Active Bertrand Patel DO Active METFORMIN HCL 500 MG ORAL TABLET 1 bid METFOR MIN HCL 66525052431 No Longer Active Bertrand Patel DO Active FUROSEMIDE 20 MG ORAL TABLET 1 pill by mouth daily if needed for edema FUROSEMIDE 59256227479 No Longer Active Bertrand Patel DO Active PRAVASTATIN SODIUM 20 MG ORAL TABLET 1 tablet by mouth daily at bedtime PRAVASTATIN SODIUM 17743101774 No Longer Active Bertrand Patel DO Active AUGMENTIN 875-125 MG ORAL TABLET 1 pill by mouth twice daily 201 09/10/00 AMOXICILLIN-POT CLAVULANATE 04466099987 No Longer Active Yoli Mercado MD PhD Active LEVAQUIN 500 MG ORAL TABLET 1 pill by mouth daily 2013 LEVOFLOXACIN 42376835207 No Longer Active Yoli Mrecado MD PhD Acti ve AMLODIPINE BESYLATE 5 MG ORAL TABLET 1 tablet by mouth daily for blood pressure AMLODIPINE BESYLATE 48400069491 Active Bertrand Patel DO Active MICARDIS 80 MG ORAL TABLET 1 tablet daily for blood pressure 07/30 TELMISARTAN 32984013510 Active Bertrand Patel DO Active MICARDIS HCT 80-12.5 MG ORAL TABLET 1 qd TELMISARTAN-HCTZ 03920925364 No Longer Active Bertrand Patel DO Active CINNAMON ALPHA LIPOIC AC CMPLX CAPSULE by mouth twice a day in AM by mouth twice a day in PM ALPHA LIPOIC MYFI-OV-GNRTSAUG CA PS 96001433627 No Longer Active Bertrand Patel DO Active AZITHROMYCIN 500 MG INTRAVENOUS SOLUTION RECONSTITUTED 1 po q da y AZITHROMYCIN 42125944305 No Longer Active Bertrand Patel DO A ctive CYMBALTA 30 MG ORAL CAPSULE DELAYED RELEASE PARTICLES 1 cap by mouth daily DULOXETINE HCL 53223541487 No Longer Active Bertrand marquez DO Active CYMBALTA 60 MG ORAL CAPSULE DELAYED RELEASE PARTICLES 1 cap by mouth daily DULOXETINE HCL 03274195885 Active Bertrand Patel DO Active WELLBUTRIN 75 MG ORAL TABLET 2 times daily BUPR OPION HCL 65191573565 No Longer Active Bertrand Patel DO Active PROAIR HFA 108 (90 Base) MCG/ACT INHALATION AEROSOL SO LUTION take one to two puffs po Q4-6 hour prn cough and shortness of breath ALBUTEROL SULFATE 99316146050 Active Silvia Arnold APRN Active AZITHROMYCIN 250 MG ORAL TABLET take 2 po today then take 1 po days 2-5 AZITHROMYCIN 59382799298 No Longer Active Adolfo OSORIO Active PERMETHRIN 5 % EXTERNAL CREAM apply neck to toes tonig ht and then rinse off in morning. repeat at 7 days PERMETHRIN 23994825799 No Longer Active Adolfo OSORIO Active AMOXICILLIN 500 MG ORAL CAPSULE 2 po BID x 10 days 201 07/15/00 AMOXICILLIN 41491145468 No Longer Active Yoli Mercado MD PhD Acti ve ALPRAZOLAM 0.5 MG ORAL TABLET 1 tab by mouth tid ALPRAZOLAM 19180732756 Active Nitza Mullins LPN Active INSUPEN ULTRAFIN 31G X 6 MM USE DIRECTED INSULIN PEN NEEDLE 65228257357 No Longer Active Bertrand Patel DO Active TRANSDERM-SCOP (1.5 MG) 1 MG/3DAYS TRANSDERMAL PATCH 7 2 HOUR 1 patch applied behind ear q 3 day SCOPOLAMINE BASE 73063181765 No Lo nger Active Bertrand Patel DO Active MACRODANTIN 100 MG ORAL CAPSULE one p.o. b.i.d. x2 weeks NITROFURANTOIN MACROCRYSTAL 61221029218 No Longer Active Bertrand Patel DO Active MACRODANTIN 100 MG ORAL CAPSULE one p.o. b.i.d. x2 weeks MACRODANTIN 100 MG ORAL CAPSULE 0592263 NITROFURANTOIN MACROCRYSTAL Inactive TRANSDERM-SCOP (1.5 MG) 1 [...] days PERMETHRIN 5 % EXTER NAL CREAM 221475 PERMETHRIN Inactive WELLBUTRIN 75 MG ORAL TABLET 2 times daily WELLBUTRIN 75 MG ORAL TABLET 608747 BUPROPION HCL Inactive CYMBALTA 30 MG ORAL CAPSULE DELAYED RELEASE PARTICLES 1 cap by mouth daily CYMBALTA 30 MG ORAL CAPSULE DELAYED RELE ASE PARTICLES 526977 DULOXETINE HCL Inactive AZITHROMYCIN 500 MG INTRAVENOUS SOLUTION RECONSTITUTED 1 po q da y AZITHROMYCIN 500 MG INTRAVENOUS SOLUTION RECONSTITUTED 11979 713472 AZITHROMYCIN Inactive CINNAMON ALPHA LIPOIC AC CMPLX CAPSULE by mouth twice a day in AM by mouth twice a day in PM CINNAMON ALPHA LIPOIC AC CMPLX CAPSULE ALPHA LIPOIC [id number] CAPS Inactive MICARDIS HCT 80-12.5 MG ORAL TABLET 1 qd 07/30 MICARDIS HCT 80-12.5 MG ORAL TABLET 546485 TELMISARTAN-HCTZ Inactive PRAVASTATIN SODIUM 20 MG ORAL TABLET 1 tablet by mouth daily at bedtime PRAVASTATIN SODIUM 20 MG ORAL TABLET 742157 PRAVASTATIN SODIUM Inactive FUROSEMIDE 20 MG ORAL TABLET 1 pill by mouth daily if needed for edema FUROSEMIDE 20 MG ORAL TABLET 489525 FUROSEMIDE Inactive METFORMIN HCL 500 MG ORAL TABLET 1 bid METFORMIN HCL 500 MG ORAL TABLET 789656 METFORMIN HCL Inactive B-12 1000 MCG ORAL CAPSULE 1 tab daily B -12 1000 MCG ORAL CAPSULE CYANOCOBALAMIN Inactive VITAMIN E 200 UNIT ORAL CAPSULE 1 cap po qd 1 VITAMIN E 200 UNIT ORAL CAPSULE 5319417 VITAMIN E Inactive [facility] MELATONIN 5-10 MG ORAL TABLET EXTENDED RELEASE Jair e one by mouth daily at bedtime [facility] MELATONIN 5-10 M G ORAL TABLET EXTENDED RELEASE MELATONIN-PYRIDOXINE Inactive LORTAB 7.5-500 MG ORAL TABLET take one po Q6 hours 201 09/12/01 LORTAB 7.5-500 MG ORAL TABLET 221951 HYDROCODONE-ACETAMINOPHEN Inactive AZITHROMYCIN 250 MG ORAL TABLET Take 2 tabs po today then 1 tab po daily AZITHROMYCIN 250 MG ORAL TABLET 156641 AZITHROMY BERNARDO Inactive SYMBICORT 160-4.5 MCG/ACT INHALATION AEROSOL 2 puffs BID 9 SYMBICORT 160-4.5 MCG/ACT INHALATION AEROSOL BUDESONIDE-FORM OTEROL FUMARATE Inactive ALBUTEROL SULFATE (2.5 MG/3ML) 0.083% INHALATION NEBUL IZATION SOLUTION one vial per nebulizer every 4-6 hours as needed ALBUTEROL SULFATE (2.5 MG/3ML) 0.083% INHALATION NEBULIZATION SOLUTION 975084 ALBUTER OL SULFATE Inactive NEBULIZER use as directed NEBULIZER NEBULI ZERS Inactive TESSALON PERLES 100 MG ORAL CAPSULE 1 tablet by mouth 3 times da juan pablo TESSALON PERLES 100 MG ORAL CAPSULE 319312 BENZONATATE Inactive CYCLOBENZAPRINE HCL 10 MG ORAL TABLET Take 1 tab TID PRN for mus triston pain CYCLOBENZAPRINE HCL 10 MG ORAL TABLET 994649 CYCLOBENZA ANUJA HCL Inactive AUGMENTIN 875-125 MG ORAL TABLET 1 po BID x 10 days 20 18/04/06 AUGMENTIN 875-125 MG ORAL TABLET 585378 AMOXICILLIN-POT CLAVULANATE Inactive BACTROBAN 2 % EXTERNAL CREAM Apply to affected area BID for up to 10 days BACTROBAN 2 % EXTERNAL CREAM 520359 MUPIROCIN CA LCIUM Inactive VITAMIN D3 62366 UNIT ORAL CAPSULE 1 pill Week x 4 mo nths for vitamin D deficiency/osteoporosis VITAMIN D3 11763 UNIT ORAL CAPSULE CHOLECALCIFEROL Inactive BENZONATATE 200 MG ORAL CAPSULE 1 three times a day as neede d for cough BENZONATATE 200 MG ORAL CAPSULE 091622 BENZONATA TE Inactive ZITHROMAX Z-MARTIN 250 MG ORAL TABLET 2 today and then 1 daily for 4 days ZITHROMAX Z-MARTIN 250 MG ORAL TABLET 696527 AZITHR OMYCIN Inactive ADDERALL 10 MG ORAL TABLET 1 tab twice daily 2 ADDERALL 10 MG ORAL TABLET 508699 AMPHETAMINE-DEXTROAMPHETAMINE Inactive AMOXICILLIN 500 MG ORAL CAPSULE 2 po BID x 10 days 201 07/15/00 AMOXICILLIN 500 MG ORAL CAPSULE 049267 AMOXICILLIN Inactive AZITHROMYCIN 250 MG ORAL TABLET take 2 po today then take 1 po days 2-5 AZITHROMYCIN 250 MG ORAL TABLET 937985 AZITHROMY BERNARDO Inactive LEVAQUIN 500 MG ORAL TABLET 1 pill by mouth daily 2013 LEVAQUIN 500 MG ORAL TABLET 221622 LEVOFLOXACIN Inactive AUGMENTIN 875-125 MG ORAL TABLET 1 pill by mouth twice daily 201 09/10/00 AUGMENTIN 875-125 MG ORAL TABLET 549986 AMOXICILLIN-POT CLAVULANATE Inactive AUGMENTIN 875-125 MG ORAL TABLET 1 po BID x 10 days 19/07/13 AUGMENTIN 875-125 MG ORAL TABLET 909481 AMOXICILLIN-POT CLAVULANATE Inactive PREDNISONE 20 MG ORAL TABLET take 3 tabs daily for 3 d ays, 2 tabs daily for 3 days, 1 tab daily for 3 days, 1/2 tab daily for 3 days 08/02 PREDNISONE 20 MG ORAL TABLET 425602 PREDNISONE Inactive CIPRO 500 MG ORAL TABLET 1 tablet by mouth twice daily CIPRO 500 MG ORAL TABLET 777431 CIPROFLOXACIN HCL Inactive Vital Signs Date Name [...] HGBA1C - Chemistry sodium, serum 143 mmol/L 545-938 5309/01/02 carbon dioxide, venous blood 31.7 mmol/L 21.0-32 [...] 0-19 Encounters Code Encounter Date Provider Facility CPT-71120 Level 4 Est. Patient 15:33:35 KITCHEN ASSISTANT Bertrand marquez [facility] CPT-56635 Level 4 Est. Patient 12:31:54 CDT Bertrand marquez [facility] CPT-89012 Level 3 Est. Patient 11:27:00 KITCHEN ASSISTANT Ike Deluna MD [facility] CPT-91043 Level 3 Est. Patient 08:50:57 KITCHEN ASSISTANT Dangelo CREPE BOX TENDER [facility] CPT-60091 Level 3 Est. Patient 10:04:13 CDT Bertrand marquez [facility] CPT-14503 Level 4 Est. Patient 16:02:10 KITCHEN ASSISTANT Dangelo [facility] CPT-45733 Level 3 Est. Patient 13:04:54 KITCHEN ASSISTANT Dangelo [facility]-13370 Level 3 Est. Patient 12:56:37 CDT Bertrand marquez [facility] CPT-35525 Level 3 Est. Patient 19:12:03 CDT Yoli tolbert MD PhD [facility] CPT-99072 Level 3 Est. Patient 14:36:01 CDT Yoli tolbert MD PhD [facility] CPT-99392 Level 2 Est. Patient 08:00:22 CDT Jcarlos dc MD [facility]-68277 Level 3 Est. Patient 19:06:55 CDT Bertrand marquez [facility] CPT-90271 Level 3 Est. Patient 10:08:23 KITCHEN ASSISTANT Bertrand marquez [facility] CPT-81541 Level 3 Est. Patient 16:37:54 KITCHEN ASSISTANT Bertrand marquez [facility] CPT-91393 Level 3 Est. Patient 11:31:59 KITCHEN ASSISTANT Bertrand Jacklyn Lindsay marquez [facility] CPT-07624 Level 3 Est. Patient 10:20:08 CDT Adolfo villasenor [facility] CPT-46266 Level 3 Est. Patient 13:45:20 CDT Sanket buckley [facility] CPT-29292 Level 3 Est. Patient 12:51:06 CDT Adolfo villasenor [facility] CPT-11601 Level 3 Est. Patient 11:22:51 KITCHEN ASSISTANT Yoli tolbert MD PhD [facility] CPT-99624 Level 3 Est. Patient 13:33:19 CDT Bertrand marquez [facility] Procedures Code Procedure Name Date Entry Date Standard Desc ription CPT-72956 Wound Culture - LAB USE ONLY 15:45:25 CDT 2 CPT-77901 Venipuncture Draw Fee 10:23:01 CDT CPT-J0696 Rocephin 1000 mg (Ceftriaxone) 16:20:30 KITCHEN ASSISTANT CPT-30095 Abx/Therapy Injection 16:20:29 KITCHEN ASSISTANT CPT-J0696 Rocephin 1gm Inj Solr 15:51:59 KITCHEN ASSISTANT CPT-05329 Chest 2V Frontal and Lat 15:20:28 KITCHEN ASSISTANT 07/22 CPT-26684 Breathing Tx 14:51:55 KITCHEN ASSISTANT CPT-42172 Breathing Tx 09:57:16 KITCHEN ASSISTANT CPT-03070 Knee comp 4/> V 11:58:06 KITCHEN ASSISTANT
--- OUTSIDE RECORDS SUMMARY | 2019-11-13 10:12 | XMS REPORT | Clinical Summary ---
Author Author Admin, Enrique Adamson Organization [facility] Address Unknown Phone Unavailable Allergies, Adverse [...] Cough SINUSITIS, ACUTE 461.9 Active Silvia PARISI neuropsychiatric aide sinusitis, unspecified Fatigue 780.79 Active Silvia Arnold [...] tablet by mouth twice daily CIPROFLOXACIN HCL 31269541833 No Longer Active Adriana Bender LPN Active AUGMENTIN 875-125 MG TAB 1 po BID x 10 days AMOXICILLIN- POT CLAVULANATE 49209024533 No Longer Active Adriana Bender PECAN MALLOW DIPPER Active BACTROBAN 2 % CREAM Apply to affected area BID for up to 10 days 20 18/03/27 MUPIROCIN CALCIUM 04803514222 Active Silvia Arnold APRN Act jairo MODAFINIL 200 MG ORAL TABS Take 1/2 tab po in the am and 1/2 tab po at noon MODAFINIL 78255399268 Active Silvia Arnold APRN Active CYCLOBENZAPRINE HCL 10 MG TABS Take 1 tab TID PRN for muscle pain CYCLOBENZAPRINE HCL 31351566272 No Longer Active Bertrand Patel DO Ac tive TESSALON PERLES 100 MG CAP 1 tablet by mouth 3 times daily 07/07 BENZONATATE 61878730556 No Longer Active Bertrand Patel DO Ac tive NEBULIZER MISC use as directed NEBULIZERS 244197 48104 No Longer Active Bertrand Patel DO Active ALBUTEROL SULFATE 0.083 % NEBU SOLN one vial per nebul izer every 4-6 hours as needed ALBUTEROL SULFATE 92911018575 No Longer Active Bertrand Patel DO Active SYMBICORT 160-4.5 MCG/ACT AERO 2 puffs BID BUDESONIDE- FORMOTEROL FUMARATE 16708975938 No Longer Active Bertrand Patel DO Ac tive PREDNISONE 20 MG TAB take 3 tabs daily for 3 days , 2 tabs daily for 3 days, 1 tab daily for 3 days, 1/2 tab daily for 3 days P REDNISONE 82468407569 No Longer Active Silvia Arnold APRN Active AZITHROMYCIN 250 MG ORAL TABS Take 2 tabs po today then 1 ta b po daily AZITHROMYCIN 91638547010 No Longer Active Silvia gavin APRN Active AUGMENTIN 875-125 MG TAB 1 po BID x 10 days AMOXICILLIN- POT CLAVULANATE 31988361236 No Longer Active Adriana Bender LPN Active CHEWABLE CALCIUM 500-200-40 MG-UNT-MCG ORAL CHEW 1 chew tab bid 201 11/03/03 CALCIUM-VITAMIN D-VITAMIN K 30136315082 Active Silvia Arnold APRN Active EQ COMPLETE MULTIVIT ADULT 50+ ORAL TABS 1 tab po bid MULTIPLE VITAMINS-MINERALS 75642401587 Active Silvia Arnold APRN Act jairo HYDROCODONE-ACETAMINOPHEN 7.5-325 MG TABS TAKE ONE TAB EVERY 6 HOURS BY MOUTH NEEDED FOR PAIN HYDROCODONE-ACETAMINOPHEN 63941289184 Acti ve Lizy العلي Active LORTAB 7.5-500 MG TABS take one po Q6 hours HYDROCODONE-ACETAMINOPHEN No Longer Active Nirmal Robbins RN Active [facility] MELATONIN 5-10 MG CR-TABS Take one by mouth daily at bedtime MELATONIN-PYRIDOXINE 34318624129 No Longer Active Bertrand Patel DO Active VITAMIN E 200 UNIT CAPS 1 cap po qd VITAMIN E 316 73162509 No Longer Active Bertrand Patel DO Active B-12 1000 MCG CAPS 1 tab daily CYANOCOBALAMIN 31 649574915 No Longer Active Bertrand Patel DO Active METFORMIN HCL 500 MG TABS 1 bid METFORMIN HCL 28779734419 No Longer Active Bertrand Patel DO Active FUROSEMIDE 20 MG TABS 1 pill by mouth daily if needed for edema FUROSEMIDE 23595900073 No Longer Active Bertrand Patel DO Act jairo PRAVASTATIN SODIUM 20 MG TABS 1 tablet by mouth daily at bedtime PRAVASTATIN SODIUM 07291873615 No Longer Active Bertrand Patel DO Active AUGMENTIN 875-125 MG TABS 1 pill by mouth twice daily AMOXICILLIN-POT CLAVULANATE 22592502983 No Longer Active Yoli Mercado MD PhD Active LEVAQUIN 500 MG TABS 1 pill by mouth daily LEVO FLOXACIN 49081787787 No Longer Active Yoli Mercado MD PhD Active AMLODIPINE BESYLATE 5 MG TABS 1 tablet by mouth daily for bl ood pressure AMLODIPINE BESYLATE 26462930486 Active Keysha Jones MA Active MICARDIS 80 MG TABS 1 tablet daily for blood pressure TELMISARTAN 71423329133 Active Keysha Jones MA Active MICARDIS HCT 80-12.5 MG TABS 1 qd TELMISARTA N-HCTZ 04459971887 No Longer Active Bertrand Patel DO Active CINNAMON ALPHA LIPOIC AC CMPLX CAPS by mouth twice a d ay in AM by mouth twice a day in PM ALPHA LIPOIC [id number]-[id number] CAPS 135906 89336 No Longer Active Bertrand Patel DO Active AZITHROMYCIN 500 MG SOLR 1 po q day AZITHROMYCI N 49029392465 No Longer Active Bertrand Patel DO Active CYMBALTA 30 MG CPEP 1 cap by mouth daily DULOXE CATHI HCL 51871259961 No Longer Active Bertrand Patel DO Active CYMBALTA 60 MG CPEP 1 cap by mouth daily DULOXE CATHI HCL 25296658399 Active Keysha Jones MA Active WELLBUTRIN 75 MG TABS 2 times daily BUPROPION H CL 92876172591 No Longer Active Bertrand Patel DO Active PROAIR HFA 108 (90 BASE) MCG/ACT AERS take one to two puffs po Q4-6 hour prn cough and shortness of breath ALBUTEROL SULFATE 5911896305 2 Active Silvia Arnold HAND PACKAGER Active AZITHROMYCIN 250 MG TABS take 2 po today then take 1 po days 2-5 AZITHROMYCIN 22925441843 No Longer Active Adolfo OSORIO Active PERMETHRIN 5 % CREA apply neck to toes tonight a nd then rinse off in morning. repeat at 7 days PERMETHRIN 84538203871 No Longer Active Adolfo OSORIO Active AMOXICILLIN 500 MG CAPS 2 po BID x 10 days AMOX ICILLIN 46627426865 No Longer Active Yoli Mercado MD PhD Active ALPRAZOLAM 0.5 MG TAB 1 tab by mouth tid ALPRAZOL AM 14834581522 Active Nitza Mullins RPT,RMA Active INSUPEN ULTRAFIN 31G X 6 MM MISC USE DIRECTED 03/04 INSULIN PEN NEEDLE 99675423624 No Longer Active Bertrand Patel DO Active TRANSDERM-SCOP 1.5 MG PT72 1 patch applied behind ear q 3 day 20 04/13/28 SCOPOLAMINE BASE 35559600764 No Longer Active Bertrand Patel DO Active MACRODANTIN 100 MG CAPS one p.o. b.i.d. x2 weeks 03/04 NITROFURANTOIN MACROCRYSTAL 15740842028 No Longer Active Bertrand Patel DO Active MACRODANTIN 100 MG CAPS one p.o. b.i.d. x2 weeks 03/04 MACRODANTIN 100 MG CAPS 8347376 NITROFURANTOIN MACROCRYSTAL Inactive TRANSDERM-SCOP 1.5 MG PT72 [...] at 7 days PERMETHRIN 5 % CREA 620147 PERMETHRIN Inactive WELLBUTRIN 75 MG TABS 2 times daily WELLBUTRIN 75 MG TABS BUPROPION HCL Inactive CYMBALTA 30 MG CPEP 1 cap by mouth daily CYMBALTA 30 MG CPEP 904032 DULOXETINE HCL Inactive AZITHROMYCIN 500 MG SOLR 1 po q day ALTA THROMYCIN 500 MG SOLR 36559008543 AZITHROMYCIN Inactive CINNAMON ALPHA LIPOIC AC CMPLX CAPS by mouth twice a d ay in AM by mouth twice a day in PM CINNAMON ALPHA LIPOIC AC CMPLX CAPS ALPHA LIPOIC [id number] CAPS Inactive MICARDIS HCT 80-12.5 MG TABS 1 qd MICARDI S HCT 80-12.5 MG TABS 889706 TELMISARTAN-HCTZ Inactive PRAVASTATIN SODIUM 20 MG TABS 1 tablet by mouth daily at bedtime PRAVASTATIN SODIUM 20 MG TABS 297588 PRAVASTATIN SODIUM Inactive FUROSEMIDE 20 MG TABS 1 pill by mouth daily if needed for edema FUROSEMIDE 20 MG TABS 552686 FUROSEMIDE Inactive METFORMIN HCL 500 MG TABS 1 bid METFORMIN HCL 500 MG TABS 113649 METFORMIN HCL Inactive B-12 1000 MCG CAPS 1 tab daily B-12 1000 MCG CAP S CYANOCOBALAMIN Inactive VITAMIN E 200 UNIT CAPS 1 cap po qd VITAMIN E 2 00 UNIT CAPS 5050089 VITAMIN E Inactive [facility] MELATONIN 5-10 MG CR-TABS Take one by mouth daily at bedtime [facility] MELATONIN 5-10 MG CR-TABS MELATONIN-PYRIDOXI NE Inactive LORTAB 7.5-500 MG TABS take one po Q6 hours LORTAB 7.5-500 MG TABS HYDROCODONE-ACETAMINOPHEN Inactive AZITHROMYCIN 250 MG ORAL TABS Take 2 tabs po today then 1 ta b po daily AZITHROMYCIN 250 MG ORAL TABS 6398129 AZITHROMYCI N Inactive SYMBICORT 160-4.5 MCG/ACT AERO 2 puffs BID SYMBICORT 160- 4.5 MCG/ACT AERO BUDESONIDE-FORMOTEROL FUMARATE Inactive ALBUTEROL SULFATE 0.083 % NEBU SOLN one vial per nebul izer every 4-6 hours as needed ALBUTEROL SULFATE 0.083 % NEBU SOLN 63019 8 ALBUTEROL SULFATE Inactive NEBULIZER MISC use as directed NEBULIZER MISC NEBULIZERS Inactive TESSALON PERLES 100 MG CAP 1 tablet by mouth 3 times daily 07/07 TESSALON PERLES 100 MG CAP 807501 BENZONATATE Inact jairo CYCLOBENZAPRINE HCL 10 MG TABS Take 1 tab TID PRN for muscle pain CYCLOBENZAPRINE HCL 10 MG TABS 205237 CYCLOBENZAPRINE HCL Inactive AUGMENTIN 875-125 MG TAB 1 po BID x 10 days AUGMENTIN 875- 125 MG TAB 818188 AMOXICILLIN-POT CLAVULANATE Inactive AMOXICILLIN 500 MG CAPS 2 po BID x 10 days AMOXICILLIN 500 MG CAPS 037671 AMOXICILLIN Inactive AZITHROMYCIN 250 MG TABS take 2 po today then take 1 po days 2-5 AZITHROMYCIN 250 MG TABS 7759939 AZITHROMYCIN Inactiv e LEVAQUIN 500 MG TABS 1 pill by mouth daily LEVAQUIN 500 MG TABS 530419 LEVOFLOXACIN Inactive AUGMENTIN 875-125 MG TABS 1 pill by mouth twice daily AUGMENTIN 875-125 MG TABS 225802 AMOXICILLIN-POT CLAVULANATE Inacti ve AUGMENTIN 875-125 MG TAB 1 po BID x 10 days AUGMENTIN 875- 125 MG TAB 679228 AMOXICILLIN-POT CLAVULANATE Inactive PREDNISONE 20 MG TAB take 3 tabs daily for 3 days , 2 tabs daily for 3 days, 1 tab daily for 3 days, 1/2 tab daily for 3 days PREDNISONE 20 MG TAB 826648 PREDNISONE Inactive CIPRO 500 MG TAB 1 tablet by mouth twice daily CIPRO 500 MG TAB 906071 CIPROFLOXACIN HCL Inactive Vital Signs Date Name [...] 5.8 % 4.3-6.0 cholesterol, serum 200 mg/dL 696-028 5128/07/22 triglyceride, serum, fasting 56 mg/dL 30-200 HDL cholesterol, serum 80 mg/dL 32-96 LDL cholesterol, serum 109 mg/dL 0-130 albumin/creatinine ratio, urine < 30 mg/g mg/g{creat} 0-2 9 TSH 1.16 m[iU]/mL 0.36-3.74 sodium, serum 142 mmol/L 111-869 2781/07/22 carbon dioxide, venous blood 33.1 mmol/L 21.0-32 [...] Negative;Positive Encounters Code Encounter Date Provider Facility CPT-85028 Level 3 Est. Patient 08:50:57 BODY DESIGNER Silvia And dmitriy [facility] CPT-77886 Level 3 Est. Patient 10:04:13 CDT Bertrand marquez [facility] CPT-38635 Level 4 Est. Patient 16:02:10 BODY DESIGNER Silvia And dmitriy [facility] CPT-21741 Level 3 Est. Patient 13:04:54 BODY DESIGNER Dangelo [facility] CPT-43138 Level 3 Est. Patient 12:56:37 CDT Bertrand marquez [facility] CPT-05172 Level 3 Est. Patient 19:12:03 CDT Yoli tolbert MD PhD [facility] CPT-02771 Level 3 Est. Patient 14:36:01 CDT Yoli tolbert MD PhD [facility] CPT-83510 Level 2 Est. Patient 08:00:22 CDT Jcarlos dc MD [facility] CPT-95228 Level 3 Est. Patient 19:06:55 CDT Bertrand marquez [facility] CPT-30586 Level 3 Est. Patient 10:08:23 BODY DESIGNER Bertrand marquez [facility] CPT-18709 Level 3 Est. Patient 16:37:54 BODY DESIGNER Bertrand marquez [facility] CPT-78386 Level 3 Est. Patient 11:31:59 BODY DESIGNER Bertrand marquez [facility] CPT-36652 Level 3 Est. Patient 10:20:08 CDT Adolfo villasenor [facility] CPT-44030 Level 3 Est. Patient 13:45:20 CDT Sanket buckley [facility] CPT-42565 Level 3 Est. Patient 12:51:06 CDT Adolfo villasenor [facility] CPT-18795 Level 3 Est. Patient 11:22:51 BODY DESIGNER Yoli tolbert MD PhD [facility] CPT-70848 Level 3 Est. Patient 13:33:19 CDT Bertrand marquez [facility] Procedures Code Procedure Name Date Entry Date Standard Desc ription CPT-08089 Wound Culture - LAB USE ONLY 15:45:25 CDT 2 CPT-81460 Venipuncture Draw Fee 10:23:01 CDT CPT-J0696 Rocephin 1000 mg (Ceftriaxone) 16:20:30 BODY DESIGNER CPT-03456 Abx/Therapy Injection 16:20:29 BODY DESIGNER CPT-J0696 Rocephin 1gm Inj Solr 15:51:59 BODY DESIGNER CPT-40422 Chest 2V Frontal and Lat 15:20:28 BODY DESIGNER 07/22 CPT-66099 Breathing Tx 14:51:55 BODY DESIGNER CPT-66618 Breathing Tx 09:57:16 BODY DESIGNER CPT-98523 Knee comp 4/> V 11:58:06 BODY DESIGNER
--- OUTSIDE RECORDS SUMMARY | 2019-11-13 10:13 | XMS REPORT | Clinical Summary ---
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 sinusitis, unspecified Fatigue 780.79 Active Silvia Arnold [...] and 1/2 tab po at noon MODAFINIL 21549853210 Active Keysha Jones MA Active CYCLOBENZAPRINE HCL 10 MG TABS Take 1 tab TID PRN for muscle pain CYCLOBENZAPRINE HCL 27492233632 No Longer Active Bertrand Rowan tive TESSALON PERLES 100 MG CAP 1 tablet by mouth 3 times daily 07/07 BENZONATATE 70699870024 No Longer Active Bertrand Patel DO Ac tive NEBULIZER MISC use as directed NEBULIZERS 245581 39159 No Longer Active Bertrand Patel DO Active ALBUTEROL SULFATE 0.083 % NEBU SOLN one vial per nebul izer every 4-6 hours as needed ALBUTEROL SULFATE 86871538368 No Longer Active Bertrand Patel DO Active SYMBICORT 160-4.5 MCG/ACT AERO 2 puffs BID BUDESONIDE- FORMOTEROL FUMARATE 25534484644 No Longer Active Bertrand Patel DO Ac tive PREDNISONE 20 MG TAB take 3 tabs daily for 3 days , 2 tabs daily for 3 days, 1 tab daily for 3 days, 1/2 tab daily for 3 days P REDNISONE 23053889662 No Longer Active Silvia Arnold APRN Active AZITHROMYCIN 250 MG ORAL TABS Take 2 tabs po today then 1 ta b po daily AZITHROMYCIN 02900417481 No Longer Active Silvia Jorge gavin MAINTENANCE DEPARTMENT MANAGER Active AUGMENTIN 875-125 MG TAB 1 po BID x 10 days AMOXICILLIN- POT CLAVULANATE 62407517853 No Longer Active Adriana Bender LPN Active CHEWABLE CALCIUM 500-200-40 MG-UNT-MCG ORAL CHEW 1 chew tab bid 201 11/03/03 CALCIUM-VITAMIN D-VITAMIN K 43852465822 Active Silvia Arnold APRN Active EQ COMPLETE MULTIVIT ADULT 50+ ORAL TABS 1 tab po bid MULTIPLE VITAMINS-MINERALS 89518841853 Active Silvia Arnold APRN Act jairo HYDROCODONE-ACETAMINOPHEN 7.5-325 MG TABS TAKE ONE TAB EVERY 6 HOURS BY MOUTH NEEDED FOR PAIN HYDROCODONE-ACETAMINOPHEN 43428012341 Acti ve Bertrand Patel DO Active LORTAB 7.5-500 MG TABS take one po Q6 hours HYDROCODONE-ACETAMINOPHEN No Longer Active Nirmal Robbins RN Active [facility] MELATONIN 5-10 MG CR-TABS Take one by mouth daily at bedtime MELATONIN-PYRIDOXINE 08047685311 No Longer Active Bertrand Patel DO Active VITAMIN E 200 UNIT CAPS 1 cap po qd VITAMIN E 316 46367672 No Longer Active Bertrand Patel DO Active B-12 1000 MCG CAPS 1 tab daily CYANOCOBALAMIN 31 095309620 No Longer Active Bertrand Patel DO Active METFORMIN HCL 500 MG TABS 1 bid METFORMIN HCL 71452432274 No Longer Active Bertrand W Jorge DO Active FUROSEMIDE 20 MG TABS 1 pill by mouth daily if needed for edema FUROSEMIDE 42152492083 No Longer Active Bertrand Patel DO Act jairo PRAVASTATIN SODIUM 20 MG TABS 1 tablet by mouth daily at bedtime PRAVASTATIN SODIUM 28878953780 No Longer Active Bertrand aPtel DO Active AUGMENTIN 875-125 MG TABS 1 pill by mouth twice daily AMOXICILLIN-POT CLAVULANATE 16389335035 No Longer Active Yoli Mercado MD PhD Active LEVAQUIN 500 MG TABS 1 pill by mouth daily LEVO FLOXACIN 85976563971 No Longer Active Yoli Mercado MD PhD Active AMLODIPINE BESYLATE 5 MG TABS 1 tablet by mouth daily for bl ood pressure AMLODIPINE BESYLATE 18477319795 Active Nitza Dorman PT,RMA Active MICARDIS 80 MG TABS 1 tablet daily for blood pressure TELMISARTAN 59033389037 Active Nitza Mullins RPT,RMA Active MICARDIS HCT 80-12.5 MG TABS 1 qd TELMISARTA N-HCTZ 95019174516 No Longer Active Bertrand Patel DO Active CINNAMON ALPHA LIPOIC AC CMPLX CAPS by mouth twice a d ay in AM by mouth twice a day in PM ALPHA LIPOIC [id number] CAPS 054035 16499 No Longer Active Bertrand Patel DO Active AZITHROMYCIN 500 MG SOLR 1 po q day AZITHROMYCI N 27198026557 No Longer Active Bertrand Patel DO Active CYMBALTA 30 MG CPEP 1 cap by mouth daily DULOXE CATHI HCL 38714688213 No Longer Active Bertrand Patel DO Active CYMBALTA 60 MG CPEP 1 cap by mouth daily DULOXE CATHI HCL 37113766636 Active Nitza Mullins RPT,RMA Active WELLBUTRIN 75 MG TABS 2 times daily BUPROPION H CL 10567940893 No Longer Active Bertrand W Jorge DO Active PROAIR HFA 108 (90 BASE) MCG/ACT AERS take one to two puffs po Q4-6 hour prn cough and shortness of breath ALBUTEROL SULFATE 3704214152 2 Active Silvia Arnold MAINTENANCE DEPARTMENT MANAGER Active AZITHROMYCIN 250 MG TABS take 2 po today then take 1 po days 2-5 AZITHROMYCIN 52189480455 No Longer Active Adolfo OSORIO Active PERMETHRIN 5 % CREA apply neck to toes tonight a nd then rinse off in morning. repeat at 7 days PERMETHRIN 64429263801 No Longer Active Adolfo OSORIO Active AMOXICILLIN 500 MG CAPS 2 po BID x 10 days AMOX ICILLIN 18262104006 No Longer Active Yoli Mercado MD PhD Active ALPRAZOLAM 0.5 MG TAB 1 tab by mouth tid ALPRAZOL AM 68253598569 Active Nitza Mullins RPT,RMA Active INSUPEN ULTRAFIN 31G X 6 MM MISC USE DIRECTED 03/04 INSULIN PEN NEEDLE 33429282102 No Longer Active Bertrand Patel DO Active TRANSDERM-SCOP 1.5 MG PT72 1 patch applied behind ear q 3 day 20 04/13/28 SCOPOLAMINE BASE 11283450088 No Longer Active Bertrand Patel DO Active MACRODANTIN 100 MG CAPS one p.o. b.i.d. x2 weeks 03/04 NITROFURANTOIN MACROCRYSTAL 60251772486 No Longer Active Bertrand Patel DO Active MACRODANTIN 100 MG CAPS one p.o. b.i.d. x2 weeks 03/04 MACRODANTIN 100 MG CAPS 7131877 NITROFURANTOIN MACROCRYSTAL Inactive TRANSDERM-SCOP 1.5 MG PT72 [...] at 7 days PERMETHRIN 5 % CREA 248509 PERMETHRIN Inactive WELLBUTRIN 75 MG TABS 2 times daily WELLBUTRIN 75 MG TABS BUPROPION HCL Inactive CYMBALTA 30 MG CPEP 1 cap by mouth daily CYMBALTA 30 MG CPEP 791748 DULOXETINE HCL Inactive AZITHROMYCIN 500 MG SOLR 1 po q day ALTA THROMYCIN 500 MG SOLR 00607131487 AZITHROMYCIN Inactive CINNAMON ALPHA LIPOIC AC CMPLX CAPS by mouth twice a d ay in AM by mouth twice a day in PM CINNAMON ALPHA LIPOIC AC CMPLX CAPS ALPHA LIPOIC JALS-QH-OTALOSTS CAPS Inactive MICARDIS HCT 80-12.5 MG TABS 1 qd MICARDI S HCT 80-12.5 MG TABS 496117 TELMISARTAN-HCTZ Inactive PRAVASTATIN SODIUM 20 MG TABS 1 tablet by mouth daily at bedtime PRAVASTATIN SODIUM 20 MG TABS 100658 PRAVASTATIN SODIUM Inactive FUROSEMIDE 20 MG TABS 1 pill by mouth daily if needed for edema FUROSEMIDE 20 MG TABS 828357 FUROSEMIDE Inactive METFORMIN HCL 500 MG TABS 1 bid METFORMIN HCL 500 MG TABS 856349 METFORMIN HCL Inactive B-12 1000 MCG CAPS 1 tab daily B-12 1000 MCG CAP S CYANOCOBALAMIN Inactive VITAMIN E 200 UNIT CAPS 1 cap po qd VITAMIN E 2 00 UNIT CAPS 8545883 VITAMIN E Inactive [facility] MELATONIN 5-10 MG CR-TABS Take one by mouth daily at bedtime [facility] MELATONIN 5-10 MG CR-TABS MELATONIN-PYRIDOXI NE Inactive LORTAB 7.5-500 MG TABS take one po Q6 hours LORTAB 7.5-500 MG TABS HYDROCODONE-ACETAMINOPHEN Inactive AZITHROMYCIN 250 MG ORAL TABS Take 2 tabs po today then 1 ta b po daily AZITHROMYCIN 250 MG ORAL TABS 7892385 AZITHROMYCI N Inactive SYMBICORT 160-4.5 MCG/ACT AERO 2 puffs BID SYMBICORT 160- 4.5 MCG/ACT AERO BUDESONIDE-FORMOTEROL FUMARATE Inactive ALBUTEROL SULFATE 0.083 % NEBU SOLN one vial per nebul izer every 4-6 hours as needed ALBUTEROL SULFATE 0.083 % NEBU SOLN 06682 8 ALBUTEROL SULFATE Inactive NEBULIZER MISC use as directed NEBULIZER MISC NEBULIZERS Inactive TESSALON PERLES 100 MG CAP 1 tablet by mouth 3 times daily 07/07 TESSALON PERLES 100 MG CAP 965086 BENZONATATE Inact jairo CYCLOBENZAPRINE HCL 10 MG TABS Take 1 tab TID PRN for muscle pain CYCLOBENZAPRINE HCL 10 MG TABS 071651 CYCLOBENZAPRINE HCL Inactive AMOXICILLIN 500 MG CAPS 2 po BID x 10 days AMOXICILLIN 500 MG CAPS 114754 AMOXICILLIN Inactive AZITHROMYCIN 250 MG TABS take 2 po today then take 1 po days 2-5 AZITHROMYCIN 250 MG TABS 9175676 AZITHROMYCIN Inactiv e LEVAQUIN 500 MG TABS 1 pill by mouth daily LEVAQUIN 500 MG TABS 588441 LEVOFLOXACIN Inactive AUGMENTIN 875-125 MG TABS 1 pill by mouth twice daily AUGMENTIN 875-125 MG TABS 528224 AMOXICILLIN-POT CLAVULANATE Inacti ve AUGMENTIN 875-125 MG TAB 1 po BID x 10 days AUGMENTIN 875- 125 MG TAB 138003 AMOXICILLIN-POT CLAVULANATE Inactive PREDNISONE 20 MG TAB take 3 tabs daily for 3 days , 2 tabs daily for 3 days, 1 tab daily for 3 days, 1/2 tab daily for 3 days PREDNISONE 20 MG TAB 858475 PREDNISONE Inactive Vital Signs Date Name Value [...] 11 .6-14.8 platelet count 339 10^3/MM^3 10*3/mm3 545-307 3735/02/19 erythrocyte (RBC) count 3.95 10^6/MM^3 10*6/mm3 4.04-5.4 [...] 0.40 mg/dL 0.00-1.00 sodium, serum 142 mmol/L 615-250 0914/07/22 carbon dioxide, venous blood 33.1 mmol/L 21.0-32 .0 potassium, serum 4.6 mmol/L 3.5-5.2 chloride, serum 105 mmol/L 98-107 blood glucose 96 mg/dL 65-110 urea nitrogen, blood 16 mg/dL 7-18 creatinine, serum 0.69 mg/dL 0.55-1.30 alanine aminotransferase (SGPT), serum 22 U/L 12-78 aspartate aminotransferase (SGOT), serum 18 U/L 15-37 hemoglobin A1C, blood, as % of total hemoglobin 5.8 % 4.3-6.0 cholesterol, serum 200 mg/dL 372-554 8011/07/22 triglyceride, serum, fasting 56 mg/dL 30-200 HDL [...] Negative;Positive Encounters Code Encounter Date Provider Facility CPT-16529 Level 3 Est. Patient 10:04:13 CDT Bertrand marquez Xianguo [facility] CPT-10676 Level 4 Est. Patient 16:02:10 ELEMENTARY EDUCATION TUTOR Dangelo MAINTENANCE DEPARTMENT MANAGER Lizy [facility] CPT-67941 Level 3 Est. Patient 13:04:54 ELEMENTARY EDUCATION TUTOR Dangelo MAINTENANCE DEPARTMENT MANAGER Lizy [facility] CPT-81206 Level 3 Est. Patient 12:56:37 CDT Bertrand marquez Xianguo [facility] -[facility] CPT-82602 Level 3 Est. Patient 19:12:03 CDT Yoli tolbert MD [facility] CPT-02261 Level 3 Est. Patient 14:36:01 CDT Yoli tolbert MD [facility] CPT-22789 Level 2 Est. Patient 08:00:22 CDT Jcarlos dc MD [facility] CPT-91593 Level 3 Est. Patient 19:06:55 CDT Bertrand marquez [facility] CPT-07080 Level 3 Est. Patient 10:08:23 ELEMENTARY EDUCATION TUTOR Bertrand marquez [facility] CPT-45147 Level 3 Est. Patient 16:37:54 ELEMENTARY EDUCATION TUTOR Bertrand marquez [facility] CPT-64012 Level 3 Est. Patient 11:31:59 ELEMENTARY EDUCATION TUTOR Bertrand marquez [facility] CPT-76753 Level 3 Est. Patient 10:20:08 CDT Adolfo villasenor [facility] CPT-06858 Level 3 Est. Patient 13:45:20 CDT Sanket buckley [facility] CPT-29573 Level 3 Est. Patient 12:51:06 CDT Adolfo villasenor [facility] CPT-94358 Level 3 Est. Patient 11:22:51 ELEMENTARY EDUCATION TUTOR Yoli tolbert MD [facility] CPT-42443 Level 3 Est. Patient 13:33:19 CDT Bertrand marquez [facility] Procedures Code Procedure Name Date Entry Date Standard Desc ription CPT-46914 Venipuncture Draw Fee 10:23:01 CDT CPT-J0696 Rocephin 1000 mg (Ceftriaxone) 16:20:30 ELEMENTARY EDUCATION TUTOR CPT-31524 Abx/Therapy Injection 16:20:29 ELEMENTARY EDUCATION TUTOR CPT-J0696 Rocephin 1gm Inj Solr 15:51:59 ELEMENTARY EDUCATION TUTOR CPT-82261 Chest 2V Frontal and Lat 15:20:28 ELEMENTARY EDUCATION TUTOR 07/22 CPT-52310 Breathing Tx 14:51:55 ELEMENTARY EDUCATION TUTOR CPT-73588 Breathing Tx 09:57:16 ELEMENTARY EDUCATION TUTOR CPT-42176 Knee comp 4/> V 11:58:06 ELEMENTARY EDUCATION TUTOR
--- OUTSIDE RECORDS SUMMARY | 2019-11-13 10:13 | XMS REPORT | Clinical Summary ---
Author Author Admin, Enrique Adamson Organization [employer] Address Unknown Phone Unavailable Allergies, Adverse Reactions, [...] 09/09/28 EDEMA LEG ICD-782.3 Inactive Adele Feldman VOUCHER EXAMINER 201 01/01/02 SHORTNESS OF BREATH ICD-786.05 Inactive Yoli Mercado MD PhD RIB PAIN, RIGHT SIDED ICD-786.50 Inactive Yoli Mercado MD PhD KNEE PAIN, RIGHT ICD-719.46 Inactive Adele chiu VOUCHER EXAMINER Knee pain, left ICD-719.46 Inactive Adele damico VOUCHER EXAMINER Pharyngitis-Acute ICD-462 Inactive Bertrand Redmond DO Polyuria ICD-788.42 Inactive Yoli Mercado MD P hD Cellulitis, leg, right ICD-682.6 Inactive Yuki Deluna MD Foreign body, ear ICD-931 Inactive Yoli salazar MD PhD Fatigue ICD-780.79 Inactive Ike Deluna MD 201 12/01/06 Headache ICD-784.0 Inactive Adele Gaston ARTHUR 2017 Cough ICD-786.2 Inactive Adele Feldman VOUCHER EXAMINER 06/04 SINUSITIS, ACUTE ICD-461.9 Inactive Ike lange MD Fatigue ICD-780.79 Inactive Adele Feldman VOUCHER EXAMINER 2017 Bronchitis acute with bronchospasm ICD-466.0 I nactive Adele Feldman VOUCHER EXAMINER Animal bite ICD-919.8 Inactive Adele Feldman LP N Mycoplasma infection ICD-041.81 Inactive Anit a Feldman VOUCHER EXAMINER Amenorrhea, secondary ICD-626.0 Inactive Ani ta Feldman VOUCHER EXAMINER Medication List Medication Instructions Start Date Stop Date Generic Name NDC Status Provider Patient Instruction LEVAQUIN 500 MG ORAL TABLET 1 tablet by mouth daily LEVOFLOXACIN 12970056777 Active Bertrand Patel DO Active ADDERALL 10 MG ORAL TABLET 1 tab twice daily 2 AMPHETAMINE-DEXTROAMPHETAMINE 47465346164 No Longer Active Nitza Phi llips Scribe Active ZITHROMAX Z-MARTIN 250 MG ORAL TABLET 2 today and then 1 daily for 4 days AZITHROMYCIN 66112631778 No Longer Active Nitza Osman lips Scribe Active BENZONATATE 200 MG ORAL CAPSULE 1 three times a day as neede d for cough BENZONATATE 64203257851 No Longer Active Nitza Brewer lips Scribe Active VITAMIN D3 49404 UNIT ORAL CAPSULE 1 pill Week x 4 mo nt for vitamin D deficiency/osteoporosis CHOLECALCIFEROL 96188598807 N o Longer Active Layla Mcmullen Active BACTROBAN 2 % EXTERNAL CREAM Apply to affected area BID for up to 10 days MUPIROCIN CALCIUM 64240028613 No Longer Active Ike Deluna MD Active CIPRO 500 MG ORAL TABLET 1 tablet by mouth twice daily CIPROFLOXACIN HCL 73089090516 No Longer Active Adriana Bender LPN Active AUGMENTIN 875-125 MG ORAL TABLET 1 po BID x 10 days 18/04/06 AMOXICILLIN-POT CLAVULANATE 45848718102 No Longer Active Adriana Bender LPN Active MODAFINIL 200 MG ORAL TABLET Take 1/2 tab po in the am and 1 /2 tab po at noon MODAFINIL 82128353813 Active Bertrand Patel DO Ac tive CYCLOBENZAPRINE HCL 10 MG ORAL TABLET Take 1 tab TID PRN for mus triston pain CYCLOBENZAPRINE HCL 22118032520 No Longer Active Bertrand Patel DO Active TESSALON PERLES 100 MG ORAL CAPSULE 1 tablet by mouth 3 times da juan pablo BENZONATATE 03932257840 No Longer Active Bertrand Patel DO Ac tive NEBULIZER use as directed NEBULIZERS 11341725138 No Longer Active Bertrand Patel DO Active ALBUTEROL SULFATE (2.5 MG/3ML) 0.083% INHALATION NEBUL IZATION SOLUTION one vial per nebulizer every 4-6 hours as needed ALBUTERO L SULFATE 12975165433 No Longer Active Bertrand Patel DO Active SYMBICORT 160-4.5 MCG/ACT INHALATION AEROSOL 2 puffs BID 9 BUDESONIDE-FORMOTEROL FUMARATE 27573290479 No Longer Active Bertrand Patel DO Active PREDNISONE 20 MG ORAL TABLET take 3 tabs daily for 3 d ays, 2 tabs daily for 3 days, 1 tab daily for 3 days, 1/2 tab daily for 3 days 08/02 PREDNISONE 58977415492 No Longer Active Silvia Arell [employer] HOME GENERAL MANAGER Active AZITHROMYCIN 250 MG ORAL TABLET Take 2 tabs po today then 1 tab po daily AZITHROMYCIN 63896280616 No Longer Active Silvia Arell FUNERAL HOME GENERAL MANAGER Active AUGMENTIN 875-125 MG ORAL TABLET 1 po BID x 10 days 19/07/13 AMOXICILLIN-POT CLAVULANATE 69877851123 No Longer Active Adriana Bender LPN Active CHEWABLE CALCIUM 500-200-40 MG-UNT-MCG ORAL TABLET CHEWABLE 1 chew tab bid CALCIUM-VITAMIN D-VITAMIN K 64631270717 Active Silvia Are ll FUNERAL HOME GENERAL MANAGER Active EQ COMPLETE MULTIVIT ADULT 50+ ORAL TABLET 1 tab po bid MULTIPLE VITAMINS-MINERALS 69983232111 Active Silvia Arell FUNERAL HOME GENERAL MANAGER Active HYDROCODONE-ACETAMINOPHEN 7.5-325 MG ORAL TABLET TAKE ONE TAB EVERY 6 HOURS BY MOUTH NEEDED FOR PAIN HYDROCODONE-ACETAMINOPHEN 004 74856981 Active Bertrand Patel DO Active LORTAB 7.5-500 MG ORAL TABLET take one po Q6 hours 201 09/12/01 HYDROCODONE-ACETAMINOPHEN 44356082692 No Longer Active Nirmal Robbins RN Active [facility] MELATONIN 5-10 MG ORAL TABLET EXTENDED RELEASE Jair e one by mouth daily at bedtime MELATONIN-PYRIDOXINE 36790123540 No Longer Acti ve Bertrand Patel DO Active VITAMIN E 200 UNIT ORAL CAPSULE 1 cap po qd VITAM IN E 13143324175 No Longer Active Bertrand Patel DO Active B-12 1000 MCG ORAL CAPSULE 1 tab daily CYANOCOB ALAMIN 97864745255 No Longer Active Bertrand Patel DO Active METFORMIN HCL 500 MG ORAL TABLET 1 bid METFOR MIN HCL 34348328521 No Longer Active Bertrand Patel DO Active FUROSEMIDE 20 MG ORAL TABLET 1 pill by mouth daily if needed for edema FUROSEMIDE 51053945424 No Longer Active Bertrand Patel DO Active PRAVASTATIN SODIUM 20 MG ORAL TABLET 1 tablet by mouth daily at bedtime PRAVASTATIN SODIUM 49662280244 No Longer Active Bertrand Patel DO Active AUGMENTIN 875-125 MG ORAL TABLET 1 pill by mouth twice daily 201 09/10/00 AMOXICILLIN-POT CLAVULANATE 59063372230 No Longer Active Yoli Mercado MD PhD Active LEVAQUIN 500 MG ORAL TABLET 1 pill by mouth daily 2013 LEVOFLOXACIN 09497186123 No Longer Active Yoli Meracdo MD PhD Acti ve AMLODIPINE BESYLATE 5 MG ORAL TABLET 1 tablet by mouth daily for blood pressure AMLODIPINE BESYLATE 13545659419 Active Bertrand Patel DO Active MICARDIS 80 MG ORAL TABLET 1 tablet daily for blood pressure 07/30 TELMISARTAN 80963922239 Active Bertrand Patel DO Active MICARDIS HCT 80-12.5 MG ORAL TABLET 1 qd TELMISARTAN-HCTZ 25096237587 No Longer Active Bertrand Patel DO Active CINNAMON ALPHA LIPOIC AC CMPLX CAPSULE by mouth twice a day in AM by mouth twice a day in PM ALPHA LIPOIC [id number]-PW-[id number] CA PS 11756428053 No Longer Active Bertrand Patel DO Active AZITHROMYCIN 500 MG INTRAVENOUS SOLUTION RECONSTITUTED 1 po q da y AZITHROMYCIN 33967801060 No Longer Active Bertrand Patel DO A ctive CYMBALTA 30 MG ORAL CAPSULE DELAYED RELEASE PARTICLES 1 cap by mouth daily DULOXETINE HCL 71929222899 No Longer Active Bertrand marquez DO Active CYMBALTA 60 MG ORAL CAPSULE DELAYED RELEASE PARTICLES 1 cap by mouth daily DULOXETINE HCL 23534594680 Active Bertrand Patel DO Active WELLBUTRIN 75 MG ORAL TABLET 2 times daily BUPR OPION HCL 03917480316 No Longer Active Bertrand Patel DO Active PROAIR HFA 108 (90 Base) MCG/ACT INHALATION AEROSOL SO LUTION take one to two puffs po Q4-6 hour prn cough and shortness of breath ALBUTEROL SULFATE 35749276036 Active Silvia Vazquez APRN Active AZITHROMYCIN 250 MG ORAL TABLET take 2 po today then take 1 po days 2-5 AZITHROMYCIN 22070913436 No Longer Active Adolfo OSORIO Active PERMETHRIN 5 % EXTERNAL CREAM apply neck to toes tonig ht and then rinse off in morning. repeat at 7 days PERMETHRIN 86044928279 No Longer Active Adolfo OSORIO Active AMOXICILLIN 500 MG ORAL CAPSULE 2 po BID x 10 days 201 07/15/00 AMOXICILLIN 14631061565 No Longer Active Yoli Mercado MD PhD Acti ve ALPRAZOLAM 0.5 MG ORAL TABLET 1 tab by mouth tid ALPRAZOLAM 86222582056 Active Bertrand Patel DO Active INSUPEN ULTRAFIN 31G X 6 MM USE DIRECTED INSULIN PEN NEEDLE 82326612948 No Longer Active Bertrand Patel DO Active TRANSDERM-SCOP (1.5 MG) 1 MG/3DAYS TRANSDERMAL PATCH 7 2 HOUR 1 patch applied behind ear q 3 day SCOPOLAMINE BASE 95178070292 No Lo nger Active Bertrand Patel DO Active MACRODANTIN 100 MG ORAL CAPSULE one p.o. b.i.d. x2 weeks NITROFURANTOIN MACROCRYSTAL 45616885243 No Longer Active Bertrand Patel DO Active MACRODANTIN 100 MG ORAL CAPSULE one p.o. b.i.d. x2 weeks MACRODANTIN 100 MG ORAL CAPSULE 4610059 NITROFURANTOIN MACROCRYSTAL Inactive TRANSDERM-SCOP (1.5 MG) 1 [...] days PERMETHRIN 5 % EXTER NAL CREAM 714759 PERMETHRIN Inactive WELLBUTRIN 75 MG ORAL TABLET 2 times daily WELLBUTRIN 75 MG ORAL TABLET 294710 BUPROPION HCL Inactive CYMBALTA 30 MG ORAL CAPSULE DELAYED RELEASE PARTICLES 1 cap by mouth daily CYMBALTA 30 MG ORAL CAPSULE DELAYED RELE ASE PARTICLES 262854 DULOXETINE HCL Inactive AZITHROMYCIN 500 MG INTRAVENOUS SOLUTION RECONSTITUTED 1 po q da y AZITHROMYCIN 500 MG INTRAVENOUS SOLUTION RECONSTITUTED 99211 598900 AZITHROMYCIN Inactive CINNAMON ALPHA LIPOIC AC CMPLX CAPSULE by mouth twice a day in AM by mouth twice a day in PM CINNAMON ALPHA LIPOIC AC CMPLX CAPSULE ALPHA LIPOIC [id number] CAPS Inactive MICARDIS HCT 80-12.5 MG ORAL TABLET 1 qd 07/30 MICARDIS HCT 80-12.5 MG ORAL TABLET 632778 TELMISARTAN-HCTZ Inactive PRAVASTATIN SODIUM 20 MG ORAL TABLET 1 tablet by mouth daily at bedtime PRAVASTATIN SODIUM 20 MG ORAL TABLET 490618 PRAVASTATIN SODIUM Inactive FUROSEMIDE 20 MG ORAL TABLET 1 pill by mouth daily if needed for edema FUROSEMIDE 20 MG ORAL TABLET 310323 FUROSEMIDE Inactive METFORMIN HCL 500 MG ORAL TABLET 1 bid METFORMIN HCL 500 MG ORAL TABLET 080289 METFORMIN HCL Inactive B-12 1000 MCG ORAL CAPSULE 1 tab daily B -12 1000 MCG ORAL CAPSULE CYANOCOBALAMIN Inactive VITAMIN E 200 UNIT ORAL CAPSULE 1 cap po qd 1 VITAMIN E 200 UNIT ORAL CAPSULE 2846590 VITAMIN E Inactive [facility] MELATONIN 5-10 MG [...] po daily AZITHROMYCIN 250 MG ORAL TABLET 856488 AZITHROMY BERNARDO Inactive SYMBICORT 160-4.5 MCG/ACT INHALATION AEROSOL 2 puffs BID 9 SYMBICORT 160-4.5 MCG/ACT INHALATION AEROSOL BUDESONIDE-FORM OTEROL FUMARATE Inactive ALBUTEROL SULFATE (2.5 MG/3ML) 0.083% INHALATION NEBUL IZATION SOLUTION one vial per nebulizer every 4-6 hours as needed ALBUTEROL SULFATE (2.5 MG/3ML) 0.083% INHALATION NEBULIZATION SOLUTION 999646 ALBUTER OL SULFATE Inactive NEBULIZER use as directed NEBULIZER NEBULI ZERS Inactive TESSALON PERLES 100 MG ORAL CAPSULE 1 tablet by mouth 3 times da juan pablo TESSALON PERLES 100 MG ORAL CAPSULE 516422 BENZONATATE Inactive CYCLOBENZAPRINE HCL 10 MG ORAL TABLET Take 1 tab TID PRN for mus triston pain CYCLOBENZAPRINE HCL 10 MG ORAL TABLET 672521 CYCLOBENZA ANUJA HCL Inactive AUGMENTIN 875-125 MG ORAL TABLET 1 po BID x 10 days 20 18/04/06 AUGMENTIN 875-125 MG ORAL TABLET 075850 AMOXICILLIN-POT CLAVULANATE Inactive BACTROBAN 2 % EXTERNAL CREAM Apply to affected area BID for up to 10 days BACTROBAN 2 % EXTERNAL CREAM 784431 MUPIROCIN CA LCIUM Inactive VITAMIN D3 31657 UNIT ORAL CAPSULE 1 pill Week x 4 mo nt for vitamin D deficiency/osteoporosis VITAMIN D3 13526 UNIT ORAL CAPSULE CHOLECALCIFEROL Inactive BENZONATATE 200 MG ORAL CAPSULE 1 three times a day as neede d for cough BENZONATATE 200 MG ORAL CAPSULE 755321 BENZONATA TE Inactive ZITHROMAX Z-MARTIN 250 MG ORAL TABLET 2 today and then 1 daily for 4 days ZITHROMAX Z-MARTIN 250 MG ORAL TABLET 325234 AZITHR OMYCIN Inactive ADDERALL 10 MG ORAL TABLET 1 tab twice daily 2 ADDERALL 10 MG ORAL TABLET 759811 AMPHETAMINE-DEXTROAMPHETAMINE Inactive AMOXICILLIN 500 MG ORAL CAPSULE 2 po BID x 10 days 201 07/15/00 AMOXICILLIN 500 MG ORAL CAPSULE 312213 AMOXICILLIN Inactive AZITHROMYCIN 250 MG ORAL TABLET take 2 po today then take 1 po days 2-5 AZITHROMYCIN 250 MG ORAL TABLET 907491 AZITHROMY BERNARDO Inactive LEVAQUIN 500 MG ORAL TABLET 1 pill by mouth daily 2013 LEVAQUIN 500 MG ORAL TABLET 598501 LEVOFLOXACIN Inactive AUGMENTIN 875-125 MG ORAL TABLET 1 pill by mouth twice daily 201 09/10/00 AUGMENTIN 875-125 MG ORAL TABLET 178381 AMOXICILLIN-POT CLAVULANATE Inactive AUGMENTIN 875-125 MG ORAL TABLET 1 po BID x 10 days 20 19/07/13 AUGMENTIN 875-125 MG ORAL TABLET 658298 AMOXICILLIN-POT CLAVULANATE Inactive PREDNISONE 20 MG ORAL TABLET take 3 tabs daily for 3 d ays, 2 tabs daily for 3 days, 1 tab daily for 3 days, 1/2 tab daily for 3 days 08/02 PREDNISONE 20 MG ORAL TABLET 731509 PREDNISONE Inactive CIPRO 500 MG ORAL TABLET 1 tablet by mouth twice daily CIPRO 500 MG ORAL TABLET 087888 CIPROFLOXACIN HCL Inactive Vital Signs Date Name [...] Description Lab Report: CBC, Comp. Metabolic Panel, [facility] - Chemistry sodium, serum 143 mmol/L 285-808 4096/01/02 carbon dioxide, venous blood 31.7 mmol/L 21.0-32 [...] 4.3-6.0 Lab Report: CBC, Comp. Metabolic Panel, BA1C - Hematology leukocyte count, blood 7.7 10^3/MM^3 [...] 0-19 Encounters Code Encounter Date Provider Facility CPT-87309 Level 3 Est. Patient 11:40:23 CDT Bertrand marquez DO [facility] CPT-25897 Level 4 Est. Patient 15:33:35 AUTO SELF SERVICE STATION ATTENDANT Bertrand marquez DO [facility] CPT-90011 Level 4 Est. Patient 12:31:54 CDT Bertrand marquez DO [facility] CPT-98458 Level 3 Est. Patient 11:27:00 AUTO SELF SERVICE STATION ATTENDANT Ike Deluna MD [facility] CPT-97740 Level 3 Est. Patient 08:50:57 AUTO SELF SERVICE STATION ATTENDANT Silvia gagnon APRN [facility] CPT-48464 Level 3 Est. Patient 10:04:13 CDT Bertrand W L ee [facility]-43357 Level 4 Est. Patient 16:02:10 AUTO SELF SERVICE STATION ATTENDANT Silvia Are ll [facility] CPT-56646 Level 3 Est. Patient 13:04:54 AUTO SELF SERVICE STATION ATTENDANT Silvia Are ll [facility]-18740 Level 3 Est. Patient 12:56:37 CDT Bertrand marquez [facility]-82782 Level 3 Est. Patient 19:12:03 CDT Yoli tolbert MD [facility]-74229 Level 3 Est. Patient 14:36:01 CDT Yoli tolbert MD [facility]81197 Level 2 Est. Patient 08:00:22 CDT Jcarlos dc MD [facility]-59258 Level 3 Est. Patient 19:06:55 CDT Bertrand marquez [facility]-65793 Level 3 Est. Patient 10:08:23 AUTO SELF SERVICE STATION ATTENDANT Bertrand marquez [facility]-73732 Level 3 Est. Patient 16:37:54 AUTO SELF SERVICE STATION ATTENDANT Bertrand marquez [facility]-40233 Level 3 Est. Patient 11:31:59 AUTO SELF SERVICE STATION ATTENDANT Bertrand marquez [facility] CPT-61885 Level 3 Est. Patient 10:20:08 CDT Adolfo villasenor [facility]-43747 Level 3 Est. Patient 13:45:20 CDT Sanket buckley [facility]-98847 Level 3 Est. Patient 12:51:06 CDT Adolfo villasenor [facility]-35093 Level 3 Est. Patient 11:22:51 AUTO SELF SERVICE STATION ATTENDANT Yoli tolbert MD [facility]254 Level 3 Est. Patient 13:33:19 CDT Bertrand marquez [facility] Procedures Code Procedure Name Date Entry Date Standard Desc ription CPT-13940 Wound Culture - LAB USE ONLY 15:45:25 CDT 2 CPT-08179 Venipuncture Draw Fee 10:23:01 CDT CPT-J0696 Rocephin 1000 mg (Ceftriaxone) 16:20:30 AUTO SELF SERVICE STATION ATTENDANT CPT-89304 Abx/Therapy Injection 16:20:29 AUTO SELF SERVICE STATION ATTENDANT CPT-J0696 Rocephin 1gm Inj Solr 15:51:59 AUTO SELF SERVICE STATION ATTENDANT CPT-75526 Chest 2V Frontal and Lat 15:20:28 AUTO SELF SERVICE STATION ATTENDANT 07/22 CPT-89428 Breathing Tx 14:51:55 AUTO SELF SERVICE STATION ATTENDANT CPT-14852 Breathing Tx 09:57:16 AUTO SELF SERVICE STATION ATTENDANT CPT-27758 Knee comp 4/> V 11:58:06 AUTO SELF SERVICE STATION ATTENDANT
--- OUTSIDE RECORDS SUMMARY | 2019-11-13 10:13 | XMS REPORT | Clinical Summary ---
Author Author Admin, Enrique Adamson Organization [employer] Address Unknown Phone Unavailable Allergies, Adverse Reactions, [...] unspecified site Amenorrhea, secondary 626.0 Active Bertrand Paetl DO Absence of menstruation Depression 311 Active [...] NDC Status Provider Patient Instruction VITAMIN D3 28714 UNIT CAPS 1 pill Week x 4 months for vitamin D deficiency/osteoporosis CHOLECALCIFEROL 76330513233 Active Darlyn Monzon Active BENZONATATE 200 MG ORAL CAPS 1 three times a day as needed for c ough BENZONATATE 08556580712 Active Ike Deluna MD Acti ve ZITHROMAX Z-MARTIN 250 MG TABS 2 today and then 1 daily for 4 days 201 12/01/06 AZITHROMYCIN 62591440041 Active Ike Deluna MD Active ADDERALL 10 MG ORAL TABS 1 tab twice daily AMPHETAMINE-DEXTROAMPHETAMINE 81679731826 Active Ike Deluna MD Active BACTROBAN 2 % CREAM Apply to affected area BID for up to 10 days MUPIROCIN CALCIUM 14707419031 No Longer Active Ike Deluna MD Active CIPRO 500 MG TAB 1 tablet by mouth twice daily CIPROFLOXACIN HCL 22636668723 No Longer Active Adriana Bender LPN Active AUGMENTIN 875-125 MG TAB 1 po BID x 10 days AMOXICILLIN- POT CLAVULANATE 60548644599 No Longer Active Adriana Bender LPN Active MODAFINIL 200 MG ORAL TABS Take 1/2 tab po in the am and 1/2 tab po at noon MODAFINIL 20398995149 Active Bertrand Patel DO Ac tive CYCLOBENZAPRINE HCL 10 MG TABS Take 1 tab TID PRN for muscle pain CYCLOBENZAPRINE HCL 94838089625 No Longer Active Bertrand Patel DO Ac tive TESSALON PERLES 100 MG CAP 1 tablet by mouth 3 times daily 07/07 BENZONATATE 94157461435 No Longer Active Bertrand Patel DO Ac tive NEBULIZER MISC use as directed NEBULIZERS 570929 35167 No Longer Active Bertrand Patel DO Active ALBUTEROL SULFATE 0.083 % NEBU SOLCammy one vial per nebul izer every 4-6 hours as needed ALBUTEROL SULFATE 66697790884 No Longer Active Bertrand Patel DO Active SYMBICORT 160-4.5 MCG/ACT AERO 2 puffs BID BUDESONIDE- FORMOTEROL FUMARATE 97032942679 No Longer Active Bertrand Patel DO Ac tive PREDNISONE 20 MG TAB take 3 tabs daily for 3 days , 2 tabs daily for 3 days, 1 tab daily for 3 days, 1/2 tab daily for 3 days P REDNISONE 61133489416 No Longer Active Silvia Arnold APRN Active AZITHROMYCIN 250 MG ORAL TABS Take 2 tabs po today then 1 ta b po daily AZITHROMYCIN 54667506678 No Longer Active Silvia Jorge leslye ADVISOR CONSULTANT Active AUGMENTIN 875-125 MG TAB 1 po BID x 10 days AMOXICILLIN- POT CLAVULANATE 24382477343 No Longer Active Adriana Bender LPN Active CHEWABLE CALCIUM 500-200-40 MG-UNT-MCG ORAL CHEW 1 chew tab bid 201 11/03/03 CALCIUM-VITAMIN D-VITAMIN K 05680257887 Active Silvia Arnold APRN Active EQ COMPLETE MULTIVIT ADULT 50+ ORAL TABS 1 tab po bid MULTIPLE VITAMINS-MINERALS 78188711106 Active Silvia Arnold APRN Act jairo HYDROCODONE-ACETAMINOPHEN 7.5-325 MG TABS TAKE ONE TAB EVERY 6 HOURS BY MOUTH NEEDED FOR PAIN HYDROCODONE-ACETAMINOPHEN 04688191267 Acti ve Bertrand Patel DO Active LORTAB 7.5-500 MG TABS take one po Q6 hours HYDROCODONE-ACETAMINOPHEN No Longer Active Nirmal Robbins RN Active [facility] MELATON[facility] 5-10 MG CR-TABS Take one by mouth daily at bedtime MELATONIN-PYRIDOXINE 27973243257 No Longer Active Bertrand Patel DO Active VITAMIN E 200 UNIT CAPS 1 cap po qd VITAMIN E 316 22492378 No Longer Active Bertrand Patel DO Active B-12 1000 MCG CAPS 1 tab daily CYANOCOBALAMIN 31 453034450 No Longer Active Bertrand Patel DO Active METFORMIN HCL 500 MG TABS 1 bid METFORMIN HCL 84184989744 No Longer Active Bertrand Patel DO Active FUROSEMIDE 20 MG TABS 1 pill by mouth daily if needed for edema FUROSEMIDE 38949771197 No Longer Active Bertrand Patel DO Act jairo PRAVASTATIN SODIUM 20 MG TABS 1 tablet by mouth daily at bedtime PRAVASTATIN SODIUM 28904992969 No Longer Active Bertrand Patel DO Active AUGMENTIN 875-125 MG TABS 1 pill by mouth twice daily AMOXICILLIN-POT CLAVULANATE 19450473514 No Longer Active Yoli Mercado MD PhD Active LEVAQUIN 500 MG TABS 1 pill by mouth daily LEVO FLOXACIN 24069986551 No Longer Active Yoli Mercado MD PhD Active AMLODIPINE BESYLATE 5 MG TABS 1 tablet by mouth daily for bl ood pressure AMLODIPINE BESYLATE 32473334810 Active Darlyn Monzon Active MICARDIS 80 MG TABS 1 tablet daily for blood pressure TELMISARTAN 19425299251 Active Bertrand Patle DO Active MICARDIS HCT 80-12.5 MG TABS 1 qd TELMISARTA N-HCTZ 96313840689 No Longer Active Bertrand Patel DO Active CINNAMON ALPHA LIPOIC AC CMPLX CAPS by mouth twice a d ay in AM by mouth twice a day in PM ALPHA LIPOIC XLCP-IL-YWWLLXXF CAPS 189558 39873 No Longer Active Bertrand Patel DO Active AZITHROMYCIN 500 MG SOLR 1 po q day AZITHROMYCI N 55493466757 No Longer Active Bertrand Patel DO Active CYMBALTA 30 MG CPEP 1 cap by mouth daily DULOXE CATHI HCL 50366841300 No Longer Active Bertrand Patel DO Active CYMBALTA 60 MG CPEP 1 cap by mouth daily DULOXE CATHI HCL 66892192166 Active Keysha Jones MA Active WELLBUTRIN 75 MG TABS 2 times daily BUPROPION H CL 55052639404 No Longer Active Bertrand W Jorge DO Active PROAIR HFA 108 (90 BASE) MCG/ACT AERS take one to two puffs po Q4-6 hour prn cough and shortness of breath ALBUTEROL SULFATE 1581806881 2 Active Silvia Arnold ADVISOR CONSULTANT Active AZITHROMYCIN 250 MG TABS take 2 po today then take 1 po days 2-5 AZITHROMYCIN 72834565292 No Longer Active Adolfo OSORIO Active PERMETHRIN 5 % CREA apply neck to toes tonight a nd then rinse off in morning. repeat at 7 days PERMETHRIN 13458729108 No Longer Active Adolfo OSORIO Active AMOXICILLIN 500 MG CAPS 2 po BID x 10 days AMOX ICILLIN 57385895606 No Longer Active Yoli Mercado MD PhD Active ALPRAZOLAM 0.5 MG TAB 1 tab by mouth tid ALPRAZOL AM 47393522233 Active Nitza Mullins SUPERINTENDENT GAS DISTRIBUTION Active INSUPEN ULTRAFIN 31G X 6 MM MISC USE DIRECTED 03/04 INSULIN PEN NEEDLE 00023691799 No Longer Active Bertrand Patel DO Active TRANSDERM-SCOP 1.5 MG PT72 1 patch applied behind ear q 3 day 20 04/13/28 SCOPOLAMINE BASE 54047559678 No Longer Active Bertrand Patel DO Active MACRODANTIN 100 MG CAPS one p.o. b.i.d. x2 weeks 03/04 NITROFURANTOIN MACROCRYSTAL 41876590018 No Longer Active Bertrand Patel DO Active MACRODANTIN 100 MG CAPS one p.o. b.i.d. x2 weeks 03/04 MACRODANTIN 100 MG CAPS 1261988 NITROFURANTOIN MACROCRYSTAL Inactive TRANSDERM-SCOP 1.5 MG PT72 [...] at 7 days PERMETHRIN 5 % CREA 760675 PERMETHRIN Inactive WELLBUTRIN 75 MG TABS 2 times daily WELLBUTRIN 75 MG TABS BUPROPION HCL Inactive CYMBALTA 30 MG CPEP 1 cap by mouth daily CYMBALTA 30 MG CPEP 497085 DULOXETINE HCL Inactive AZITHROMYCIN 500 MG SOLR 1 po q day ALTA THROMYCIN 500 MG SOLR 22531908709 AZITHROMYCIN Inactive CINNAMON ALPHA LIPOIC AC CMPLX CAPS by mouth twice a d ay in AM by mouth twice a day in PM CINNAMON ALPHA LIPOIC AC CMPLX CAPS ALPHA LIPOIC MRXE-EE-ORRSLXCM CAPS Inactive MICARDIS HCT 80-12.5 MG TABS 1 qd MICARDI S HCT 80-12.5 MG TABS 832900 TELMISARTAN-HCTZ Inactive PRAVASTATIN SODIUM 20 MG TABS 1 tablet by mouth daily at bedtime PRAVASTATIN SODIUM 20 MG TABS 249551 PRAVASTATIN SODIUM Inactive FUROSEMIDE 20 MG TABS 1 pill by mouth daily if needed for edema FUROSEMIDE 20 MG TABS 135326 FUROSEMIDE Inactive METFORMIN HCL 500 MG TABS 1 bid METFORMIN HCL 500 MG TABS 422708 METFORMIN HCL Inactive B-12 1000 MCG CAPS 1 tab daily B-12 1000 MCG CAP S CYANOCOBALAMIN Inactive VITAMIN E 200 UNIT CAPS 1 cap po qd VITAMIN E 2 00 UNIT CAPS 9732162 VITAMIN E Inactive [facility] MELATONIN 5-10 MG CR-TABS Take one by mouth daily at bedtime [facility] MELATONIN 5-10 MG CR-TABS MELATONIN-PYRIDOXI NE Inactive LORTAB 7.5-500 MG TABS take one po Q6 hours LORTAB 7.5-500 MG TABS HYDROCODONE-ACETAMINOPHEN Inactive AZITHROMYCIN 250 MG ORAL TABS Take 2 tabs po today then 1 ta b po daily AZITHROMYCIN 250 MG ORAL TABS 4260446 AZITHROMYCI N Inactive SYMBICORT 160-4.5 MCG/ACT AERO 2 puffs BID SYMBICORT 160- 4.5 MCG/ACT AERO BUDESONIDE-FORMOTEROL FUMARATE Inactive ALBUTEROL SULFATE 0.083 % NEBU SOLN one vial per nebul izer every 4-6 hours as needed ALBUTEROL SULFATE 0.083 % NEBU SOLN 13183 8 ALBUTEROL SULFATE Inactive NEBULIZER MISC use as directed NEBULIZER MISC NEBULIZERS Inactive TESSALON PERLES 100 MG CAP 1 tablet by mouth 3 times daily 07/07 TESSALON PERLES 100 MG CAP 468740 BENZONATATE Inact jiaro CYCLOBENZAPRINE HCL 10 MG TABS Take 1 tab TID PRN for muscle pain CYCLOBENZAPRINE HCL 10 MG TABS 172741 CYCLOBENZAPRINE HCL Inactive AUGMENTIN 875-125 MG TAB 1 po BID x 10 days AUGMENTIN 875- 125 MG TAB 702528 AMOXICILLIN-POT CLAVULANATE Inactive BACTROBAN 2 % CREAM Apply to affected area BID for up to 10 days BACTROBAN 2 % CREAM 438347 MUPIROCIN CALCIUM Inactive AMOXICILLIN 500 MG CAPS 2 po BID x 10 days AMOXICILLIN 500 MG CAPS 933472 AMOXICILLIN Inactive AZITHROMYCIN 250 MG TABS take 2 po today then take 1 po days 2-5 AZITHROMYCIN 250 MG TABS 1755558 AZITHROMYCIN Inactiv e LEVAQUIN 500 MG TABS 1 pill by mouth daily LEVAQUIN 500 MG TABS 269649 LEVOFLOXACIN Inactive AUGMENTIN 875-125 MG TABS 1 pill by mouth twice daily AUGMENTIN 875-125 MG TABS 109168 AMOXICILLIN-POT CLAVULANATE Inacti ve AUGMENTIN 875-125 MG TAB 1 po BID x 10 days AUGMENTIN 875- 125 MG TAB 222992 AMOXICILLIN-POT CLAVULANATE Inactive PREDNISONE 20 MG TAB take 3 tabs daily for 3 days , 2 tabs daily for 3 days, 1 tab daily for 3 days, 1/2 tab daily for 3 days PREDNISONE 20 MG TAB 323377 PREDNISONE Inactive CIPRO 500 MG TAB 1 tablet by mouth twice daily CIPRO 500 MG TAB 240916 CIPROFLOXACIN HCL Inactive Vital Signs Date Name [...] 4.3-6.0 Encounters Code Encounter Date Provider Facility CPT-89362 Level 4 Est. Patient 12:31:54 CDT Bertrand marquez [facility] CPT-37224 Level 3 Est. Patient 11:27:00 PLANT CLERK Ike Deluna MD [facility]-56268 Level 3 Est. Patient 08:50:57 PLANT CLERK Dangelo BARAJAS [facility] CPT-85167 Level 3 Est. Patient 10:04:13 CDT Bertrand marquez [facility]-09121 Level 4 Est. Patient 16:02:10 PLANT CLERK Dangelo ADVISOR CONSULTANT [facility] CPT-89329 Level 3 Est. Patient 13:04:54 PLANT CLERK Dangelo ADVISOR CONSULTANT [facility]-20897 Level 3 Est. Patient 12:56:37 CDT Bertrand marquez [facility] CPT-66785 Level 3 Est. Patient 19:12:03 CDT Yoli tolbert MD PhD [facility] CPT-31113 Level 3 Est. Patient 14:36:01 CDT Yoli tolbert MD [facility]-68521 Level 2 Est. Patient 08:00:22 CDT Jcarlos dc MD [facility]-54365 Level 3 Est. Patient 19:06:55 CDT Bertrand marquez [facility] CPT-53782 Level 3 Est. Patient 10:08:23 PLANT CLERK Bertrand marquez [facility]-80087 Level 3 Est. Patient 16:37:54 PLANT CLERK Bertrand marquez [facility] CPT-44460 Level 3 Est. Patient 11:31:59 PLANT CLERK Bertrand marquez [facility] CPT-78953 Level 3 Est. Patient 10:20:08 CDT Adolfo OSORIO [facility]-84255 Level 3 Est. Patient 13:45:20 CDT Sanket Ankit buckley [facility] CPT-79605 Level 3 Est. Patient 12:51:06 CDT Adolfo Monroyridge halljacklyn [facility] CPT-31961 Level 3 Est. Patient 11:22:51 PLANT CLERK Yoli tolbert MD PhD [facility] CPT-51959 Level 3 Est. Patient 13:33:19 CDT Bertrand Sabillon ee DO [facility] Procedures Code Procedure Name Date Entry Date Standard Desc ription CPT-34626 Wound Culture - LAB USE ONLY 15:45:25 CDT 2 CPT-53859 Venipuncture Draw Fee 10:23:01 CDT CPT-J0696 Rocephin 1000 mg (Ceftriaxone) 16:20:30 PLANT CLERK CPT-89085 Abx/Therapy Injection 16:20:29 PLANT CLERK CPT-J0696 Rocephin 1gm Inj Solr 15:51:59 PLANT CLERK CPT-82935 Chest 2V Frontal and Lat 15:20:28 PLANT CLERK 07/22 CPT-36975 Breathing Tx 14:51:55 PLANT CLERK CPT-81154 Breathing Tx 09:57:16 PLANT CLERK CPT-08916 Knee comp 4/> V 11:58:06 PLANT CLERK
--- OUTSIDE RECORDS SUMMARY | 2019-11-13 10:14 | XMS REPORT | Clinical Summary ---
Author Author Admin, Enrique Adamson Organization [email or web address] Address Unknown Phone Unavailable Allergies, Adverse Reactions, [...] NDC Status Provider Patient Instruction VITAMIN D3 19910 UNIT CAPS 1 pill Week x 4 months for vitamin D deficiency/osteoporosis CHOLECALCIFEROL 45062997285 Active Darlyn Monzon Active BENZONATATE 200 MG ORAL CAPS 1 three times a day as needed for c ough BENZONATATE 30797959543 Active Ike Deluna MD Acti ve ZITHROMAX Z-MARTIN 250 MG TABS 2 today and then 1 daily for 4 days 201 12/01/06 AZITHROMYCIN 37015587968 Active Ike Deluna MD Active ADDERALL 10 MG ORAL TABS 1 tab twice daily AMPHETAMINE-DEXTROAMPHETAMINE 53231060199 Active Ike Deluna MD Active BACTROBAN 2 % CREAM Apply to affected area BID for up to 10 days MUPIROCIN CALCIUM 59260699715 No Longer Active Ike Deluna MD Active CIPRO 500 MG TAB 1 tablet by mouth twice daily CIPROFLOXACIN HCL 68146504294 No Longer Active Adriana Bender LPN Active AUGMENTIN 875-125 MG TAB 1 po BID x 10 days AMOXICILLIN- POT CLAVULANATE 05696869741 No Longer Active Adriana Bender LPN Active MODAFINIL 200 MG ORAL TABS Take 1/2 tab po in the am and 1/2 tab po at noon MODAFINIL 12100951750 Active Bertrand Patel DO Ac tive CYCLOBENZAPRINE HCL 10 MG TABS Take 1 tab TID PRN for muscle pain CYCLOBENZAPRINE HCL 91644530295 No Longer Active Bertrand Patel DO Ac tive TESSALON PERLES 100 MG CAP 1 tablet by mouth 3 times daily 07/07 BENZONATATE 25877520236 No Longer Active Bertrand Patel DO Ac tive NEBULIZER MISC use as directed NEBULIZERS 375900 80079 No Longer Active Bertrand Patel DO Active ALBUTEROL SULFATE 0.083 % NEBU SOLCammy one vial per nebul izer every 4-6 hours as needed ALBUTEROL SULFATE 52872086930 No Longer Active Bertrand Patel DO Active SYMBICORT 160-4.5 MCG/ACT AERO 2 puffs BID BUDESONIDE- FORMOTEROL FUMARATE 15028863241 No Longer Active Bertrand Patel DO Ac tive PREDNISONE 20 MG TAB take 3 tabs daily for 3 days , 2 tabs daily for 3 days, 1 tab daily for 3 days, 1/2 tab daily for 3 days P REDNISONE 31481180570 No Longer Active Silvia Arnold APRN Active AZITHROMYCIN 250 MG ORAL TABS Take 2 tabs po today then 1 ta b po daily AZITHROMYCIN 36150243371 No Longer Active Silvia Jorge leslye CELL INSPECTOR Active AUGMENTIN 875-125 MG TAB 1 po BID x 10 days AMOXICILLIN- POT CLAVULANATE 45905648226 No Longer Active Adriana Bender LPN Active CHEWABLE CALCIUM 500-200-40 MG-UNT-MCG ORAL CHEW 1 chew tab bid 201 11/03/03 CALCIUM-VITAMIN D-VITAMIN K 03769222251 Active Silvia Arnold APRN Active EQ COMPLETE MULTIVIT ADULT 50+ ORAL TABS 1 tab po bid MULTIPLE VITAMINS-MINERALS 35056701654 Active Silvia Arnold APRN Act jairo HYDROCODONE-ACETAMINOPHEN 7.5-325 MG TABS TAKE ONE TAB EVERY 6 HOURS BY MOUTH NEEDED FOR PAIN HYDROCODONE-ACETAMINOPHEN 53738515396 Acti ve Bertrand Patel DO Active LORTAB 7.5-500 MG TABS take one po Q6 hours HYDROCODONE-ACETAMINOPHEN No Longer Active Nirmal Robbins RN Active [facility] MELATONIN 5-10 MG CR-TABS Take one by mouth daily at bedtime MELATONIN-PYRIDOXINE 57519581707 No Longer Active Bertrand Patel DO Active VITAMIN E 200 UNIT CAPS 1 cap po qd VITAMIN E 316 86410238 No Longer Active Bertrand Patel DO Active B-12 1000 MCG CAPS 1 tab daily CYANOCOBALAMIN 31 868696774 No Longer Active Bertrand Patel DO Active METFORMIN HCL 500 MG TABS 1 bid METFORMIN HCL 01992387363 No Longer Active Bertrand Patel DO Active FUROSEMIDE 20 MG TABS 1 pill by mouth daily if needed for edema FUROSEMIDE 41434763098 No Longer Active Bertrand Patel DO Act jairo PRAVASTATIN SODIUM 20 MG TABS 1 tablet by mouth daily at bedtime PRAVASTATIN SODIUM 27231642339 No Longer Active Bertrand Patel DO Active AUGMENTIN 875-125 MG TABS 1 pill by mouth twice daily AMOXICILLIN-POT CLAVULANATE 05835268720 No Longer Active Yoli Mercado MD PhD Active LEVAQUIN 500 MG TABS 1 pill by mouth daily LEVO FLOXACIN 85956185009 No Longer Active Yoli Mercado MD PhD Active AMLODIPINE BESYLATE 5 MG TABS 1 tablet by mouth daily for bl ood pressure AMLODIPINE BESYLATE 65754582728 Active Darlyn Monzon Active MICARDIS 80 MG TABS 1 tablet daily for blood pressure TELMISARTAN 66084405390 Active Darlyn Monzon Active MICARDIS HCT 80-12.5 MG TABS 1 qd TELMISARTA N-HCTZ 03526425336 No Longer Active Bertrand Patel DO Active CINNAMON ALPHA LIPOIC AC CMPLX CAPS by mouth twice a d ay in AM by mouth twice a day in PM ALPHA LIPOIC OJYV-IW-ROIBGARG CAPS 867543 86585 No Longer Active Bertrand Patel DO Active AZITHROMYCIN 500 MG SOLR 1 po q day AZITHROMYCI N 31584460581 No Longer Active Bertrand Patel DO Active CYMBALTA 30 MG CPEP 1 cap by mouth daily DULOXE CATHI HCL 91948531009 No Longer Active Bertrand Patel DO Active CYMBALTA 60 MG CPEP 1 cap by mouth daily DULOXE CATHI HCL 53837309190 Active Darlyn Monzon Active WELLBUTRIN 75 MG TABS 2 times daily BUPROPION H CL 15279719350 No Longer Active Bertrand Patel DO Active PROAIR HFA 108 (90 BASE) MCG/ACT AERS take one to two puffs po Q4-6 hour prn cough and shortness of breath ALBUTEROL SULFATE 4974993925 2 Active Silvai Arnold CELL INSPECTOR Active AZITHROMYCIN 250 MG TABS take 2 po today then take 1 po days 2-5 AZITHROMYCIN 36924464323 No Longer Active Adolfo OSORIO Active PERMETHRIN 5 % CREA apply neck to toes tonight a nd then rinse off in morning. repeat at 7 days PERMETHRIN 34145189739 No Longer Active Adolfo OSORIO Active AMOXICILLIN 500 MG CAPS 2 po BID x 10 days AMOX ICILLIN 89801310623 No Longer Active Yoli Mercado MD PhD Active ALPRAZOLAM 0.5 MG TAB 1 tab by mouth tid ALPRAZOL AM 98082157114 Active Nitza Mullins PALS NURSE Active INSUPEN ULTRAFIN 31G X 6 MM MISC USE DIRECTED 03/04 INSULIN PEN NEEDLE 86010697326 No Longer Active Bertrand Patel DO Active TRANSDERM-SCOP 1.5 MG PT72 1 patch applied behind ear q 3 day 20 04/13/28 SCOPOLAMINE BASE 58285657728 No Longer Active Bertrand Patel DO Active MACRODANTIN 100 MG CAPS one p.o. b.i.d. x2 weeks 03/04 NITROFURANTOIN MACROCRYSTAL 57972009807 No Longer Active Bertrand Patel DO Active MACRODANTIN 100 MG CAPS one p.o. b.i.d. x2 weeks 03/04 MACRODANTIN 100 MG CAPS 3779367 NITROFURANTOIN MACROCRYSTAL Inactive TRANSDERM-SCOP 1.5 MG PT72 [...] at 7 days PERMETHRIN 5 % CREA 770829 PERMETHRIN Inactive WELLBUTRIN 75 MG TABS 2 times daily WELLBUTRIN 75 MG TABS 187765 BUPROPION HCL Inactive CYMBALTA 30 MG CPEP 1 cap by mouth daily CYMBALTA 30 MG CPEP 453915 DULOXETINE HCL Inactive AZITHROMYCIN 500 MG SOLR 1 po q day ALTA THROMYCIN 500 MG SOLR 96934870009 AZITHROMYCIN Inactive CINNAMON ALPHA LIPOIC AC CMPLX CAPS by mouth twice a d ay in AM by mouth twice a day in PM CINNAMON ALPHA LIPOIC AC CMPLX CAPS ALPHA LIPOIC ORDO-MA-RBOMMCFY CAPS Inactive MICARDIS HCT 80-12.5 MG TABS 1 qd MICARDI S HCT 80-12.5 MG TABS 400580 TELMISARTAN-HCTZ Inactive PRAVASTATIN SODIUM 20 MG TABS 1 tablet by mouth daily at bedtime PRAVASTATIN SODIUM 20 MG TABS 635103 PRAVASTATIN SODIUM Inactive FUROSEMIDE 20 MG TABS 1 pill by mouth daily if needed for edema FUROSEMIDE 20 MG TABS 452856 FUROSEMIDE Inactive METFORMIN HCL 500 MG TABS 1 bid METFORMIN HCL 500 MG TABS 630518 METFORMIN HCL Inactive B-12 1000 MCG CAPS 1 tab daily B-12 1000 MCG CAP S CYANOCOBALAMIN Inactive VITAMIN E 200 UNIT CAPS 1 cap po qd VITAMIN E 2 00 UNIT CAPS 2308689 VITAMIN E Inactive [facility] MELATONIN 5-10 MG CR-TABS Take one by mouth daily at bedtime [facility] MELATONIN 5-10 MG CR-TABS MELATONIN-PYRIDOXI NE Inactive LORTAB 7.5-500 MG TABS take one po Q6 hours LORTAB 7.5-500 MG TABS 218142 HYDROCODONE-ACETAMINOPHEN Inactive AZITHROMYCIN 250 MG ORAL TABS Take 2 tabs po today then 1 ta b po daily AZITHROMYCIN 250 MG ORAL TABS 439414 AZITHROMYCI N Inactive SYMBICORT 160-4.5 MCG/ACT AERO 2 puffs BID SYMBICORT 160- 4.5 MCG/ACT AERO BUDESONIDE-FORMOTEROL FUMARATE Inactive ALBUTEROL SULFATE 0.083 % NEBU SOLN one vial per nebul izer every 4-6 hours as needed ALBUTEROL SULFATE 0.083 % NEBU SOLN 05198 8 ALBUTEROL SULFATE Inactive NEBULIZER MISC use as directed NEBULIZER MISC NEBULIZERS Inactive TESSALON PERLES 100 MG CAP 1 tablet by mouth 3 times daily 07/07 TESSALON PERLES 100 MG CAP 461653 BENZONATATE Inact jairo CYCLOBENZAPRINE HCL 10 MG TABS Take 1 tab TID PRN for muscle pain CYCLOBENZAPRINE HCL 10 MG TABS 283216 CYCLOBENZAPRINE HCL Inactive AUGMENTIN 875-125 MG TAB 1 po BID x 10 days AUGMENTIN 875- 125 MG TAB 383754 AMOXICILLIN-POT CLAVULANATE Inactive BACTROBAN 2 % CREAM Apply to affected area BID for up to 10 days BACTROBAN 2 % CREAM 439255 MUPIROCIN CALCIUM Inactive AMOXICILLIN 500 MG CAPS 2 po BID x 10 days AMOXICILLIN 500 MG CAPS 167080 AMOXICILLIN Inactive AZITHROMYCIN 250 MG TABS take 2 po today then take 1 po days 2-5 AZITHROMYCIN 250 MG TABS 644248 AZITHROMYCIN Inactiv e LEVAQUIN 500 MG TABS 1 pill by mouth daily LEVAQUIN 500 MG TABS 801687 LEVOFLOXACIN Inactive AUGMENTIN 875-125 MG TABS 1 pill by mouth twice daily AUGMENTIN 875-125 MG TABS 668429 AMOXICILLIN-POT CLAVULANATE Inacti ve AUGMENTIN 875-125 MG TAB 1 po BID x 10 days AUGMENTIN 875- 125 MG TAB 634457 AMOXICILLIN-POT CLAVULANATE Inactive PREDNISONE 20 MG TAB take 3 tabs daily for 3 days , 2 tabs daily for 3 days, 1 tab daily for 3 days, 1/2 tab daily for 3 days PREDNISONE 20 MG TAB 258214 PREDNISONE Inactive CIPRO 500 MG TAB 1 tablet by mouth twice daily CIPRO 500 MG TAB 515666 CIPROFLOXACIN HCL Inactive Vital Signs Date Name [...] 0-19 Encounters Code Encounter Date Provider Facility CPT-67868 Level 4 Est. Patient 12:31:54 CDT Bertrand marquez [facility] CPT-58752 Level 3 Est. Patient 11:27:00 GRIEVANCE MANAGER Ike Deluna MD [facility]-89612 Level 3 Est. Patient 08:50:57 GRIEVANCE MANAGER Dangelo BARAJAS [facility] CPT-06064 Level 3 Est. Patient 10:04:13 CDT Bertrand marquez [facility] CPT-06008 Level 4 Est. Patient 16:02:10 GRIEVANCE MANAGER Dangelo CELL INSPECTOR [facility] CPT-77897 Level 3 Est. Patient 13:04:54 GRIEVANCE MANAGER Dangelo CELL INSPECTOR [facility]-54858 Level 3 Est. Patient 12:56:37 CDT Bertrand marquez [facility] CPT-45877 Level 3 Est. Patient 19:12:03 CDT Yoli tolbert MD PhD [facility] CPT-09053 Level 3 Est. Patient 14:36:01 CDT Yoli tolbert MD [facility] CPT-45598 Level 2 Est. Patient 08:00:22 CDT Jcarlos dc MD [facility]-37049 Level 3 Est. Patient 19:06:55 CDT Bertrand marquez [facility] CPT-89596 Level 3 Est. Patient 10:08:23 GRIEVANCE MANAGER Bertrand marquez [facility] CPT-20946 Level 3 Est. Patient 16:37:54 GRIEVANCE MANAGER Bertrand marquez [facility] CPT-78846 Level 3 Est. Patient 11:31:59 GRIEVANCE MANAGER Bertrand marquez [facility] CPT-15119 Level 3 Est. Patient 10:20:08 CDT Adolfo villasenor [facility]-29511 Level 3 Est. Patient 13:45:20 CDT Sanket buckley [facility] CPT-38673 Level 3 Est. Patient 12:51:06 CDT Adolfo Monroyridge villasenor [facility] CPT-22360 Level 3 Est. Patient 11:22:51 GRIEVANCE MANAGER Yoli tolbert MD PhD [facility] CPT-30018 Level 3 Est. Patient 13:33:19 CDT Bertrand Sabillon ee DO [facility] Procedures Code Procedure Name Date Entry Date Standard Desc ription CPT-76063 Wound Culture - LAB USE ONLY 15:45:25 CDT 2 CPT-83104 Venipuncture Draw Fee 10:23:01 CDT CPT-J0696 Rocephin 1000 mg (Ceftriaxone) 16:20:30 GRIEVANCE MANAGER CPT-56599 Abx/Therapy Injection 16:20:29 GRIEVANCE MANAGER CPT-J0696 Rocephin 1gm Inj Solr 15:51:59 GRIEVANCE MANAGER CPT-86310 Chest 2V Frontal and Lat 15:20:28 GRIEVANCE MANAGER 07/22 CPT-51363 Breathing Tx 14:51:55 GRIEVANCE MANAGER CPT-87451 Breathing Tx 09:57:16 GRIEVANCE MANAGER CPT-97366 Knee comp 4/> V 11:58:06 GRIEVANCE MANAGER
--- OUTSIDE RECORDS SUMMARY | 2019-11-13 10:14 | XMS REPORT | Clinical Summary ---
Author Author Admin, Enrique Adamson Organization [employer] Address Unknown Phone Unavailable Allergies, Adverse Reactions, Alerts Allergy Name Reaction Description Start Date Severity Status Pr ovider BYETTA 10 MCG PEN Critical Active Lliia Clemons RN METAMUCIL Critical Active Bertrand Patel [...] PhD 201 07/14/20 FH DIABETES ICD-V18.0 Inactive oYli Mercado MD PhD 20 14/02/29 SINUSITIS, FRONTAL, [...] day as needed for c ough BENZONATATE 45149313672 Active Ike Deluna MD Acti ve ZITHROMAX Z-MARTIN 250 MG TABS 2 today and then 1 daily for 4 days 201 12/01/06 AZITHROMYCIN 68728576631 Active Ike Deluna MD Active ADDERALL 10 MG ORAL TABS 1 tab twice daily AMPHETAMINE-DEXTROAMPHETAMINE 81951524220 Active Ike Deluna MD Active BACTROBAN 2 % CREAM Apply to affected area BID for up to 10 days MUPIROCIN CALCIUM 01851270092 No Longer Active Ike Deluna MD Active CIPRO 500 MG TAB 1 tablet by mouth twice daily CIPROFLOXACIN HCL 52276111981 No Longer Active Adriana Bender LPN Active AUGMENTIN 875-125 MG TAB 1 po BID x 10 days AMOXICILLIN- POT CLAVULANATE 65719470329 No Longer Active Adriana Bender LPN Active MODAFINIL 200 MG ORAL TABS Take 1/2 tab po in the am and 1/2 tab po at noon MODAFINIL 78907414871 Active Darlyn vega CYCLOBENZAPRINE HCL 10 MG TABS Take 1 tab TID PRN for muscle pain CYCLOBENZAPRINE HCL 77628155206 No Longer Active Bertrand Patel DO Ac tive TESSALON PERLES 100 MG CAP 1 tablet by mouth 3 times daily 07/07 BENZONATATE 52479219199 No Longer Active Bertrand Patel DO Ac tive NEBULIZER MISC use as directed NEBULIZERS 155044 18410 No Longer Active Bertrand Patel DO Active ALBUTEROL SULFATE 0.083 % NEBU SOLKelvin one vial per nebul izer every 4-6 hours as needed ALBUTEROL SULFATE 41937653486 No Longer Active Bertrand Patel DO Active SYMBICORT 160-4.5 MCG/ACT AERO 2 puffs BID BUDESONIDE- FORMOTEROL FUMARATE 29554114866 No Longer Active Bertrand Patel DO Ac tive PREDNISONE 20 MG TAB take 3 tabs daily for 3 days , 2 tabs daily for 3 days, 1 tab daily for 3 days, 1/2 tab daily for 3 days P REDNISONE 48335445350 No Longer Active Silvia Arnold APRN Active AZITHROMYCIN 250 MG ORAL TABS Take 2 tabs po today then 1 ta b po daily AZITHROMYCIN 08165941571 No Longer Active Silvia gavin [employer] Active AUGMENTIN 875-125 MG TAB 1 po BID x 10 days AMOXICILLIN- POT CLAVULANATE 15545224539 No Longer Active Adriana Bender LPN Active CHEWABLE CALCIUM 500-200-40 MG-UNT-MCG ORAL CHEW 1 chew tab bid 201 11/03/03 CALCIUM-VITAMIN D-VITAMIN K 57009304063 Active Silvia Arnold APRN Active EQ COMPLETE MULTIVIT ADULT 50+ ORAL TABS 1 tab po bid MULTIPLE VITAMINS-MINERALS 73516774169 Active Silvia Arnold APRN Act jairo HYDROCODONE-ACETAMINOPHEN 7.5-325 MG TABS TAKE ONE TAB EVERY 6 HOURS BY MOUTH NEEDED FOR PAIN HYDROCODONE-ACETAMINOPHEN 36523079404 Acti raheel Mcmullen Active LORTAB 7.5-500 MG TABS take one po Q6 hours HYDROCODONE-ACETAMINOPHEN No Longer Active Nirmal Robbins RN Active [facility] MELATONIN 5-10 MG CR-TABS Take one by mouth daily at bedtime MELATONIN-PYRIDOXINE 21527334187 No Longer Active Bertrand Patel DO Active VITAMIN E 200 UNIT CAPS 1 cap po qd VITAMIN E 316 09410344 No Longer Active Bertrand Patel DO Active B-12 1000 MCG CAPS 1 tab daily CYANOCOBALAMIN 31 157238886 No Longer Active Bertrand Patel DO Active METFORMIN HCL 500 MG TABS 1 bid METFORMIN HCL 97265026280 No Longer Active Bertrand Patel DO Active FUROSEMIDE 20 MG TABS 1 pill by mouth daily if needed for edema FUROSEMIDE 24088989602 No Longer Active Bertrand Patel DO Act jairo PRAVASTATIN SODIUM 20 MG TABS 1 tablet by mouth daily at bedtime PRAVASTATIN SODIUM 71899652188 No Longer Active Bertrand Patel DO Active AUGMENTIN 875-125 MG TABS 1 pill by mouth twice daily AMOXICILLIN-POT CLAVULANATE 02655815060 No Longer Active Yoli Mercado MD PhD Active LEVAQUIN 500 MG TABS 1 pill by mouth daily LEVO FLOXACIN 85166157606 No Longer Active Yoli Mercado MD PhD Active AMLODIPINE BESYLATE 5 MG TABS 1 tablet by mouth daily for bl ood pressure AMLODIPINE BESYLATE 97886211376 Active Darlyn Mckinnonmerman Active MICARDIS 80 MG TABS 1 tablet daily for blood pressure TELMISARTAN 13139907311 Active Darlyn Nicolás Active MICARDIS HCT 80-12.5 MG TABS 1 qd TELMISARTA N-HCTZ 54031529887 No Longer Active Bertrand Patel DO Active CINNAMON ALPHA LIPOIC AC CMPLX CAPS by mouth twice a d ay in AM by mouth twice a day in PM ALPHA LIPOIC [id number] CAPS 153125 93908 No Longer Active Bertrand Patel DO Active AZITHROMYCIN 500 MG SOLR 1 po q day AZITHROMYCI N 20875838204 No Longer Active Bertrand Patel DO Active CYMBALTA 30 MG CPEP 1 cap by mouth daily DULOXE CATHI HCL 86344171617 No Longer Active Bertrand Patel DO Active CYMBALTA 60 MG CPEP 1 cap by mouth daily DULOXE CATHI HCL 48881921831 Active Keysha Jones MA Active WELLBUTRIN 75 MG TABS 2 times daily BUPROPION H CL 04864748051 No Longer Active Bertrand Patel DO Active PROAIR HFA 108 (90 BASE) MCG/ACT AERS take one to two puffs po Q4-6 hour prn cough and shortness of breath ALBUTEROL SULFATE 4199033423 2 Active Silvia Arnold APRN Active AZITHROMYCIN 250 MG TABS take 2 po today then take 1 po days 2-5 AZITHROMYCIN 06562015480 No Longer Active Adolfo OSORIO Active PERMETHRIN 5 % CREA apply neck to toes tonight a nd then rinse off in morning. repeat at 7 days PERMETHRIN 28995603477 No Longer Active Adolfo OSORIO Active AMOXICILLIN 500 MG CAPS 2 po BID x 10 days AMOX ICILLIN 97869604097 No Longer Active Yoli Mercado MD PhD Active ALPRAZOLAM 0.5 MG TAB 1 tab by mouth tid ALPRAZOL AM 42709827317 Active Nitza Mullins RPT,RMA Active INSUPEN ULTRAFIN 31G X 6 MM MISC USE DIRECTED 03/04 INSULIN PEN NEEDLE 91807143424 No Longer Active Bertrand Patel DO Active TRANSDERM-SCOP 1.5 MG PT72 1 patch applied behind ear q 3 day 20 04/13/28 SCOPOLAMINE BASE 09333693824 No Longer Active Bertrand Patel DO Active MACRODANTIN 100 MG CAPS one p.o. b.i.d. x2 weeks 03/04 NITROFURANTOIN MACROCRYSTAL 02314227883 No Longer Active Bertrand Patel DO Active MACRODANTIN 100 MG CAPS one p.o. b.i.d. x2 weeks 03/04 MACRODANTIN 100 MG CAPS 3000359 NITROFURANTOIN MACROCRYSTAL Inactive TRANSDERM-SCOP 1.5 MG PT72 [...] at 7 days PERMETHRIN 5 % CREA 556160 PERMETHRIN Inactive WELLBUTRIN 75 MG TABS 2 times daily WELLBUTRIN 75 MG TABS BUPROPION HCL Inactive CYMBALTA 30 MG CPEP 1 cap by mouth daily CYMBALTA 30 MG CPEP 328635 DULOXETINE HCL Inactive AZITHROMYCIN 500 MG SOLR 1 po q day ALTA THROMYCIN 500 MG SOLR 40365865602 AZITHROMYCIN Inactive CINNAMON ALPHA LIPOIC AC CMPLX CAPS by mouth twice a d ay in AM by mouth twice a day in PM CINNAMON ALPHA LIPOIC AC CMPLX CAPS ALPHA LIPOIC [id number] CAPS Inactive MICARDIS HCT 80-12.5 MG TABS 1 qd MICARDI S HCT 80-12.5 MG TABS 285688 TELMISARTAN-HCTZ Inactive PRAVASTATIN SODIUM 20 MG TABS 1 tablet by mouth daily at bedtime PRAVASTATIN SODIUM 20 MG TABS 868853 PRAVASTATIN SODIUM Inactive FUROSEMIDE 20 MG TABS 1 pill by mouth daily if needed for edema FUROSEMIDE 20 MG TABS 569888 FUROSEMIDE Inactive METFORMIN HCL 500 MG TABS 1 bid METFORMIN HCL 500 MG TABS 038425 METFORMIN HCL Inactive B-12 1000 MCG CAPS 1 tab daily B-12 1000 MCG CAP S CYANOCOBALAMIN Inactive VITAMIN E 200 UNIT CAPS 1 cap po qd VITAMIN E 2 00 UNIT CAPS 0372443 VITAMIN E Inactive [facility] MELATONIN 5-10 MG CR-TABS Take one by mouth daily at bedtime [facility] MELATONIN 5-10 MG CR-TABS MELATONIN-PYRIDOXI NE Inactive LORTAB 7.5-500 MG TABS take one po Q6 hours LORTAB 7.5-500 MG TABS HYDROCODONE-ACETAMINOPHEN Inactive AZITHROMYCIN 250 MG ORAL TABS Take 2 tabs po today then 1 ta b po daily AZITHROMYCIN 250 MG ORAL TABS 0523072 AZITHROMYCI N Inactive SYMBICORT 160-4.5 MCG/ACT AERO 2 puffs BID SYMBICORT 160- 4.5 MCG/ACT AERO BUDESONIDE-FORMOTEROL FUMARATE Inactive ALBUTEROL SULFATE 0.083 % NEBU SOLN one vial per nebul izer every 4-6 hours as needed ALBUTEROL SULFATE 0.083 % NEBU SOLN 75414 8 ALBUTEROL SULFATE Inactive NEBULIZER MISC use as directed NEBULIZER MISC NEBULIZERS Inactive TESSALON PERLES 100 MG CAP 1 tablet by mouth 3 times daily 07/07 TESSALON PERLES 100 MG CAP 632571 BENZONATATE Inact jairo CYCLOBENZAPRINE HCL 10 MG TABS Take 1 tab TID PRN for muscle pain CYCLOBENZAPRINE HCL 10 MG TABS 948986 CYCLOBENZAPRINE HCL Inactive AUGMENTIN 875-125 MG TAB 1 po BID x 10 days AUGMENTIN 875- 125 MG TAB 394958 AMOXICILLIN-POT CLAVULANATE Inactive BACTROBAN 2 % CREAM Apply to affected area BID for up to 10 days BACTROBAN 2 % CREAM 684653 MUPIROCIN CALCIUM Inactive AMOXICILLIN 500 MG CAPS 2 po BID x 10 days AMOXICILLIN 500 MG CAPS 780891 AMOXICILLIN Inactive AZITHROMYCIN 250 MG TABS take 2 po today then take 1 po days 2-5 AZITHROMYCIN 250 MG TABS 5829121 AZITHROMYCIN Inactiv e LEVAQUIN 500 MG TABS 1 pill by mouth daily LEVAQUIN 500 MG TABS 177571 LEVOFLOXACIN Inactive AUGMENTIN 875-125 MG TABS 1 pill by mouth twice daily AUGMENTIN 875-125 MG TABS 639733 AMOXICILLIN-POT CLAVULANATE Inacti ve AUGMENTIN 875-125 MG TAB 1 po BID x 10 days AUGMENTIN 875- 125 MG TAB 711435 AMOXICILLIN-POT CLAVULANATE Inactive PREDNISONE 20 MG TAB take 3 tabs daily for 3 days , 2 tabs daily for 3 days, 1 tab daily for 3 days, 1/2 tab daily for 3 days PREDNISONE 20 MG TAB 849229 PREDNISONE Inactive CIPRO 500 MG TAB 1 tablet by mouth twice daily CIPRO 500 MG TAB 070856 CIPROFLOXACIN HCL Inactive Vital Signs Date Name [...] 1.16 m[iU]/mL 0.36-3.74 sodium, serum 142 mmol/L 403-229 8556/07/22 carbon dioxide, venous blood 33.1 mmol/L 21.0-32 [...] 5.8 % 4.3-6.0 cholesterol, serum 200 mg/dL 439-744 8078/07/22 triglyceride, serum, fasting 56 mg/dL 30-200 HDL [...] 0-19 Encounters Code Encounter Date Provider Facility CPT-[id number] Level 3 Est. Patient 11:27:00 WOOD PILER Ike Deluna MD [facility] CPT-12342 Level 3 Est. Patient 08:50:57 WOOD PILER Dangelo [employer] [facility] CPT-84532 Level 3 Est. Patient 10:04:13 CDT Bertrand marquez [facility] CPT-52238 Level 4 Est. Patient 16:02:10 WOOD PILER Dangelo [facility] CPT-06481 Level 3 Est. Patient 13:04:54 WOOD PILER Dangelo [facility] CPT-14908 Level 3 Est. Patient 12:56:37 CDT Bertrand marquez [facility] CPT-17455 Level 3 Est. Patient 19:12:03 CDT Yoli tolbert MD PhD [facility] CPT-00662 Level 3 Est. Patient 14:36:01 CDT Yoli tolbert MD [facility] CPT-44924 Level 2 Est. Patient 08:00:22 CDT Jcarlos dc MD [facility]-60739 Level 3 Est. Patient 19:06:55 CDT Bertrand marquez [facility] CPT-35461 Level 3 Est. Patient 10:08:23 WOOD PILER Bertrand marquez [facility] CPT-71613 Level 3 Est. Patient 16:37:54 WOOD PILER Bertrand marquez [facility] CPT-46604 Level 3 Est. Patient 11:31:59 WOOD PILER Bertrand marquez [facility] CPT-49365 Level 3 Est. Patient 10:20:08 CDT Demie Ahl jacklyn [facility] CPT-95703 Level 3 Est. Patient 13:45:20 CDT Sanket Garciakelvin buckley [facility] CPT-72729 Level 3 Est. Patient 12:51:06 CDT Adolfo Monroyridge villasenor [facility] CPT-98339 Level 3 Est. Patient 11:22:51 WOOD PILER Yoli tolbert MD PhD [facility] CPT-80604 Level 3 Est. Patient 13:33:19 CDT Bertrand marquez DO [facility] Procedures Code Procedure Name Date Entry Date Standard Desc ription CPT-53143 Wound Culture - LAB USE ONLY 15:45:25 CDT 2 CPT-88629 Venipuncture Draw Fee 10:23:01 CDT CPT-J0696 Rocephin 1000 mg (Ceftriaxone) 16:20:30 WOOD PILER CPT-28932 Abx/Therapy Injection 16:20:29 WOOD PILER CPT-J0696 Rocephin 1gm Inj Solr 15:51:59 WOOD PILER CPT-32864 Chest 2V Frontal and Lat 15:20:28 WOOD PILER 07/22 CPT-18537 Breathing Tx 14:51:55 WOOD PILER CPT-79109 Breathing Tx 09:57:16 WOOD PILER CPT-04935 Knee comp 4/> V 11:58:06 WOOD PILER
--- OUTSIDE RECORDS SUMMARY | 2019-11-13 10:14 | XMS REPORT | Clinical Summary ---
Author Author Admin, Enrique Adamson Organization [employer] Address Unknown Phone Unavailable Allergies, Adverse Reactions, [...] a health care facility HYPERTENSION 401.9 Active eBrtrand Patel DO U nspecified essential hypertension SCABIES [...] Bertrand Redmond DO Polyuria ICD-788.42 Inactive Yoli eMrcado MD P hD Cellulitis, leg, right ICD-682.6 Inactive Yuki Deluna MD Foreign body, ear ICD-931 Inactive Yoli salazar MD PhD Fatigue ICD-780.79 Inactive Ike Deluna MD 201 12/01/06 SINUSITIS, ACUTE ICD-461.9 Inactive Ike lange MD FH DIABETES ICD-V18.0 Inactive Yoli Mercado MD PhD 20 14/02/29 Medication List Medication Instructions Start Date Stop Date Generic Name NDC Status Provider Patient Instruction BENZONATATE 200 MG ORAL CAPS 1 three times a day as needed for c ough BENZONATATE 93090341874 Active Ike Deluna MD Acti ve ZITHROMAX Z-MARTIN 250 MG TABS 2 today and then 1 daily for 4 days 201 12/01/06 AZITHROMYCIN 72313127560 Active Ike Deluna MD Active ADDERALL 10 MG ORAL TABS 1 tab twice daily AMPHETAMINE-DEXTROAMPHETAMINE 24887606450 Active Ike Deluna MD Active BACTROBAN 2 % CREAM Apply to affected area BID for up to 10 days MUPIROCIN CALCIUM 13750344792 No Longer Active Ike Deluna MD Active CIPRO 500 MG TAB 1 tablet by mouth twice daily CIPROFLOXACIN HCL 16812728110 No Longer Active Adriana Bender LPN Active AUGMENTIN 875-125 MG TAB 1 po BID x 10 days AMOXICILLIN- POT CLAVULANATE 56103345753 No Longer Active Adriana Bender LPN Active MODAFINIL 200 MG ORAL TABS Take 1/2 tab po in the am and 1/2 tab po at noon MODAFINIL 47415565585 Active Silvia Arnold APRN Active CYCLOBENZAPRINE HCL 10 MG TABS Take 1 tab TID PRN for muscle pain CYCLOBENZAPRINE HCL 30404422366 No Longer Active Bertrand Patel DO Ac tive TESSALON PERLES 100 MG CAP 1 tablet by mouth 3 times daily 07/07 BENZONATATE 40639977912 No Longer Active Bertrand Patel DO Ac tive NEBULIZER MISC use as directed NEBULIZERS 419866 30132 No Longer Active Bertrand Patel DO Active ALBUTEROL SULFATE 0.083 % NEBU SOLN one vial per nebul izer every 4-6 hours as needed ALBUTEROL SULFATE 44374582854 No Longer Active Bertrand Patel DO Active SYMBICORT 160-4.5 MCG/ACT AERO 2 puffs BID BUDESONIDE- FORMOTEROL FUMARATE 43027372411 No Longer Active Bertrand Patel DO Ac tive PREDNISONE 20 MG TAB take 3 tabs daily for 3 days , 2 tabs daily for 3 days, 1 tab daily for 3 days, 1/2 tab daily for 3 days P REDNISONE 15453894298 No Longer Active Silvia Arnold APRN Active AZITHROMYCIN 250 MG ORAL TABS Take 2 tabs po today then 1 ta b po daily AZITHROMYCIN 05520580097 No Longer Active 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 AUGMENTIN 875-125 MG TAB 1 po BID x 10 days AMOXICILLIN- POT CLAVULANATE 13267149791 No Longer Active Adriana Bender LPN Active CHEWABLE CALCIUM 500-200-40 MG-UNT-MCG ORAL CHEW 1 chew tab bid 201 11/03/03 CALCIUM-VITAMIN D-VITAMIN K 84285866628 Active Silvia Arnold APRN Active EQ COMPLETE MULTIVIT ADULT 50+ ORAL TABS 1 tab po bid MULTIPLE VITAMINS-MINERALS 40270815278 Active Silvia Arnold APRN Act jairo HYDROCODONE-ACETAMINOPHEN 7.5-325 MG TABS TAKE ONE TAB EVERY 6 HOURS BY MOUTH NEEDED FOR PAIN HYDROCODONE-ACETAMINOPHEN 36167472667 Acti raheel العلي Active LORTAB 7.5-500 MG TABS take one po Q6 hours HYDROCODONE-ACETAMINOPHEN No Longer Active Nirmal Robbins RN Active [facility] MELATONIN 5-10 MG CR-TABS Take one by mouth daily at bedtime MELATONIN-PYRIDOXINE 43417867195 No Longer Active Bertrand Patel DO Active VITAMIN E 200 UNIT CAPS 1 cap po qd VITAMIN E 316 20897992 No Longer Active Bertrand Patel DO Active B-12 1000 MCG CAPS 1 tab daily CYANOCOBALAMIN 31 990724411 No Longer Active Bertrand Patel DO Active METFORMIN HCL 500 MG TABS 1 bid METFORMIN HCL 79960653220 No Longer Active Bertrand Patel DO Active FUROSEMIDE 20 MG TABS 1 pill by mouth daily if needed for edema FUROSEMIDE 30763028502 No Longer Active Bertrand Patel DO Act jairo PRAVASTATIN SODIUM 20 MG TABS 1 tablet by mouth daily at bedtime PRAVASTATIN SODIUM 43668168092 No Longer Active Bertrand Patel DO Active AUGMENTIN 875-125 MG TABS 1 pill by mouth twice daily AMOXICILLIN-POT CLAVULANATE 53449047326 No Longer Active Yoli Mercado MD PhD Active LEVAQUIN 500 MG TABS 1 pill by mouth daily LEVO FLOXACIN 73700590717 No Longer Active Yoli Mercado MD PhD Active AMLODIPINE BESYLATE 5 MG TABS 1 tablet by mouth daily for bl ood pressure AMLODIPINE BESYLATE 75006452538 Active Keysha Jones MA Active MICARDIS 80 MG TABS 1 tablet daily for blood pressure TELMISARTAN 06368660226 Active Keysha Jones MA Active MICARDIS HCT 80-12.5 MG TABS 1 qd TELMISARTA N-HCTZ 86112352600 No Longer Active Bertrand Patel DO Active CINNAMON ALPHA LIPOIC AC CMPLX CAPS by mouth twice a d ay in AM by mouth twice a day in PM ALPHA LIPOIC [id number]-HC-VFRMUYMX CAPS 873150 35923 No Longer Active Bertrand Patel DO Active AZITHROMYCIN 500 MG SOLR 1 po q day AZITHROMYCI N 14321623406 No Longer Active Bertrand Patel DO Active CYMBALTA 30 MG CPEP 1 cap by mouth daily DULOXE CATHI HCL 80616372352 No Longer Active Bertrand Patel DO Active CYMBALTA 60 MG CPEP 1 cap by mouth daily DULOXE CATHI HCL 02774579509 Active Keysha Jones MA Active WELLBUTRIN 75 MG TABS 2 times daily BUPROPION H CL 10958963705 No Longer Active Bertrand Patel DO Active PROAIR HFA 108 (90 BASE) MCG/ACT AERS take one to two puffs po Q4-6 hour prn cough and shortness of breath ALBUTEROL SULFATE 9060174732 2 Active Silvia Arnold APRN Active AZITHROMYCIN 250 MG TABS take 2 po today then take 1 po days 2-5 AZITHROMYCIN 66177403020 No Longer Active Adolfo OSORIO Active PERMETHRIN 5 % CREA apply neck to toes tonight a nd then rinse off in morning. repeat at 7 days PERMETHRIN 25962968274 No Longer Active Adolfo OSORIO Active AMOXICILLIN 500 MG CAPS 2 po BID x 10 days AMOX ICILLIN 13787449680 No Longer Active Yoli Mercado MD PhD Active ALPRAZOLAM 0.5 MG TAB 1 tab by mouth tid ALPRAZOL AM 30675504705 Active Nitza Mullins RPT,RMA Active INSUPEN ULTRAFIN 31G X 6 MM MISC USE DIRECTED 03/04 INSULIN PEN NEEDLE 95804330983 No Longer Active Bertrand Patel DO Active TRANSDERM-SCOP 1.5 MG PT72 1 patch applied behind ear q 3 day 20 04/13/28 SCOPOLAMINE BASE 99630167663 No Longer Active Bertrand Patel DO Active MACRODANTIN 100 MG CAPS one p.o. b.i.d. x2 weeks 03/04 NITROFURANTOIN MACROCRYSTAL 20742132359 No Longer Active Bertrand Patel DO Active MACRODANTIN 100 MG CAPS one p.o. b.i.d. x2 weeks 03/04 MACRODANTIN 100 MG CAPS 8896237 NITROFURANTOIN MACROCRYSTAL Inactive TRANSDERM-SCOP 1.5 MG PT72 [...] at 7 days PERMETHRIN 5 % CREA 189609 PERMETHRIN Inactive WELLBUTRIN 75 MG TABS 2 times daily WELLBUTRIN 75 MG TABS BUPROPION HCL Inactive CYMBALTA 30 MG CPEP 1 cap by mouth daily CYMBALTA 30 MG CPEP 244995 DULOXETINE HCL Inactive AZITHROMYCIN 500 MG SOLR 1 po q day ALTA THROMYCIN 500 MG SOLR 27549448087 AZITHROMYCIN Inactive CINNAMON ALPHA LIPOIC AC CMPLX CAPS by mouth twice a d ay in AM by mouth twice a day in PM CINNAMON ALPHA LIPOIC AC CMPLX CAPS ALPHA LIPOIC [id number] CAPS Inactive MICARDIS HCT 80-12.5 MG TABS 1 qd MICARDI S HCT 80-12.5 MG TABS 021993 TELMISARTAN-HCTZ Inactive PRAVASTATIN SODIUM 20 MG TABS 1 tablet by mouth daily at bedtime PRAVASTATIN SODIUM 20 MG TABS 271556 PRAVASTATIN SODIUM Inactive FUROSEMIDE 20 MG TABS 1 pill by mouth daily if needed for edema FUROSEMIDE 20 MG TABS 584111 FUROSEMIDE Inactive METFORMIN HCL 500 MG TABS 1 bid METFORMIN HCL 500 MG TABS 041516 METFORMIN HCL Inactive B-12 1000 MCG CAPS 1 tab daily B-12 1000 MCG CAP S CYANOCOBALAMIN Inactive VITAMIN E 200 UNIT CAPS 1 cap po qd VITAMIN E 2 00 UNIT CAPS 6900827 VITAMIN E Inactive [facility] MELATONIN 5-10 MG CR-TABS Take one by mouth daily at bedtime [facility] MELATONIN 5-10 MG CR-TABS MELATONIN-PYRIDOXI NE Inactive LORTAB 7.5-500 MG TABS take one po Q6 hours LORTAB 7.5-500 MG TABS HYDROCODONE-ACETAMINOPHEN Inactive AZITHROMYCIN 250 MG ORAL TABS Take 2 tabs po today then 1 ta b po daily AZITHROMYCIN 250 MG ORAL TABS 8046320 AZITHROMYCI N Inactive SYMBICORT 160-4.5 MCG/ACT AERO 2 puffs BID SYMBICORT 160- 4.5 MCG/ACT AERO BUDESONIDE-FORMOTEROL FUMARATE Inactive ALBUTEROL SULFATE 0.083 % NEBU SOLN one vial per nebul izer every 4-6 hours as needed ALBUTEROL SULFATE 0.083 % NEBU SOLN 71410 8 ALBUTEROL SULFATE Inactive NEBULIZER MISC use as directed NEBULIZER MISC NEBULIZERS Inactive TESSALON PERLES 100 MG CAP 1 tablet by mouth 3 times daily 07/07 TESSALON PERLES 100 MG CAP 198841 BENZONATATE Inact jairo CYCLOBENZAPRINE HCL 10 MG TABS Take 1 tab TID PRN for muscle pain CYCLOBENZAPRINE HCL 10 MG TABS 785100 CYCLOBENZAPRINE HCL Inactive AUGMENTIN 875-125 MG TAB 1 po BID x 10 days AUGMENTIN 875- 125 MG TAB 384768 AMOXICILLIN-POT CLAVULANATE Inactive BACTROBAN 2 % CREAM Apply to affected area BID for up to 10 days BACTROBAN 2 % CREAM 970057 MUPIROCIN CALCIUM Inactive AMOXICILLIN 500 MG CAPS 2 po BID x 10 days AMOXICILLIN 500 MG CAPS 510465 AMOXICILLIN Inactive AZITHROMYCIN 250 MG TABS take 2 po today then take 1 po days 2-5 AZITHROMYCIN 250 MG TABS 9365806 AZITHROMYCIN Inactiv e LEVAQUIN 500 MG TABS 1 pill by mouth daily LEVAQUIN 500 MG TABS 894831 LEVOFLOXACIN Inactive AUGMENTIN 875-125 MG TABS 1 pill by mouth twice daily AUGMENTIN 875-125 MG TABS 248597 AMOXICILLIN-POT CLAVULANATE Inacti ve AUGMENTIN 875-125 MG TAB 1 po BID x 10 days AUGMENTIN 875- 125 MG TAB 242255 AMOXICILLIN-POT CLAVULANATE Inactive PREDNISONE 20 MG TAB take 3 tabs daily for 3 days , 2 tabs daily for 3 days, 1 tab daily for 3 days, 1/2 tab daily for 3 days PREDNISONE 20 MG TAB 562282 PREDNISONE Inactive CIPRO 500 MG TAB 1 tablet by mouth twice daily CIPRO 500 MG TAB 242525 CIPROFLOXACIN HCL Inactive Vital Signs Date Name [...] 5.8 % 4.3-6.0 cholesterol, serum 200 mg/dL 640-932 0106/07/22 triglyceride, serum, fasting 56 mg/dL 30-200 HDL cholesterol, serum 80 mg/dL 32-96 LDL cholesterol, serum 109 mg/dL 0-130 albumin/creatinine ratio, urine < 30 mg/g mg/g{creat} 0-2 9 TSH 1.16 m[iU]/mL 0.36-3.74 sodium, serum 142 mmol/L 903-345 3797/07/22 carbon dioxide, venous blood 33.1 mmol/L 21.0-32 [...] 0-19 Encounters Code Encounter Date Provider Facility CPT-90929 Level 3 Est. Patient 11:27:00 [employer] SUPERVIS[employer] Ike Deluna MD [facility] CPT-60325 Level 3 Est. Patient 08:50:57 [employer] SUPERVIS[employer] Dangelo BARAJAS [facility] CPT-61807 Level 3 Est. Patient 10:04:13 CDT Bertrand marquez [facility] CPT-78367 Level 4 Est. Patient 16:02:10 [employer] SUPERVISOR Dangelo BARAJAS [facility] CPT-54548 Level 3 Est. Patient 13:04:54 [employer] SUPERVISOR Dangelo BARAJAS [facility]-41797 Level 3 Est. Patient 12:56:37 CDT Bertrand marquez [facility] CPT-99193 Level 3 Est. Patient 19:12:03 CDT Yoli tolbert MD PhD [facility]-24167 Level 3 Est. Patient 14:36:01 CDT Yoli tolbert MD [facility]-18571 Level 2 Est. Patient 08:00:22 CDT Jcarlos dc MD [facility]-49454 Level 3 Est. Patient 19:06:55 CDT Bertrand marquez [facility] CPT-41681 Level 3 Est. Patient 10:08:23 [employer] SUPERVISOR Bertrand marquez [facility] CPT-29190 Level 3 Est. Patient 16:37:54 [employer] SUPERVISOR Bertrand marquez [facility] CPT-74600 Level 3 Est. Patient 11:31:59 [employer] SUPERVISOR Bertrand marquez [facility] CPT-36812 Level 3 Est. Patient 10:20:08 CDT Adolfo villasenor [facility] CPT-56799 Level 3 Est. Patient 13:45:20 CDT Sanket buckley [facility] CPT-87384 Level 3 Est. Patient 12:51:06 CDT Adolfo villasenor [facility] CPT-22932 Level 3 Est. Patient 11:22:51 [employer] SUPERVISOR Yoli tolbert MD PhD [facility] CPT-70203 Level 3 Est. Patient 13:33:19 CDT Bertrand marquez DO [facility] Procedures Code Procedure Name Date Entry Date Standard Desc ription CPT-13999 Wound Culture - LAB USE ONLY 15:45:25 CDT 2 CPT-87805 Venipuncture Draw Fee 10:23:01 CDT CPT-J0696 Rocephin 1000 mg (Ceftriaxone) 16:20:30 [employer] SUPER[employer] CPT-21131 Abx/Therapy Injection 16:20:29 [employer] SUPERVIS[employer] CPT-J0696 Rocephin 1gm Inj Solr 15:51:59 [employer] SUPERVIS[employer] CPT-58680 Chest 2V Frontal and Lat 15:20:28 [employer] SUPERVISOR 07/22 CPT-29260 Breathing Tx 14:51:55 [employer] SUPERVISOR CPT-29264 Breathing Tx 09:57:16 [employer] SUPERVIS[employer] CPT-26280 Knee comp 4/> V 11:58:06 [employer] SUPERVISOR
--- OUTSIDE RECORDS SUMMARY | 2019-11-13 10:14 | XMS REPORT | Clinical Summary ---
Author Author Admin, Enrique Adamson Organization [employer] Address Unknown Phone Unavailable Allergies, Adverse Reactions, [...] stated as uncontrolled Morbid obesity 278.01 Active Bertrnad Patel DO Morbid obesity Hyperlipidemia 272.4 Active Bertrand Patel DO Other and unspecified hyperlipidemia Pharyngitis-Acute 462 Inactive Bertrand Patel DO Acute pharyngitis Polyuria 788.42 Resolved Yoli Mercado MD PhD Polyuria Cellulitis, leg, right 682.6 Resolved Colni Deluna MD Cellulitis and abscess of leg, [...] 09/09/28 EDEMA LEG ICD-782.3 Inactive Adele Feldman NOTCHED BLADE LOADER 201 01/01/02 SHORTNESS OF BREATH ICD-786.05 Inactive Yoli Mercado MD PhD RIB PAIN, RIGHT SIDED ICD-786.50 Inactive Yoli Mercado MD PhD KNEE PAIN, RIGHT ICD-719.46 Inactive Adele Esqueda ghn NOTCHED BLADE LOADER Knee pain, left ICD-719.46 Inactive Adele Holden hn NOTCHED BLADE LOADER Pharyngitis-Acute ICD-462 Inactive Bertrand Redmond DO Polyuria ICD-788.42 Inactive Yoli Mercado MD P hD Cellulitis, leg, right ICD-682.6 Inactive Yuki Deluna MD Foreign body, ear ICD-931 Inactive Yoli salazar MD PhD Fatigue ICD-780.79 Inactive Ike Deluna MD 201 12/01/06 Headache ICD-784.0 Inactive Adele Feldman NOTCHED BLADE LOADER 2017 Cough ICD-786.2 Inactive Adele Feldman NOTCHED BLADE LOADER 06/04 SINUSITIS, ACUTE ICD-461.9 Inactive Ike lange MD Fatigue ICD-780.79 Inactive Adele Feldman NOTCHED BLADE LOADER 2017 Bronchitis acute with bronchospasm ICD-466.0 I nactive Adele Feldman NOTCHED BLADE LOADER Animal bite ICD-919.8 Inactive Adele Feldman LP N Mycoplasma infection ICD-041.81 Inactive Anit a Feldman NOTCHED BLADE LOADER Amenorrhea, secondary ICD-626.0 Inactive Ani quinton Downsn NOTCHED BLADE LOADER Medication List Medication Instructions Start Date Stop Date Generic Name NDC Status Provider Patient Instruction ADDERALL 10 MG ORAL TABLET 1 tab twice daily 2 AMPHETAMINE-DEXTROAMPHETAMINE 51460365797 No Longer Active Nitza Phi llips Scribe Active ZITHROMAX Z-MARTIN 250 MG ORAL TABLET 2 today and then 1 daily for 4 days AZITHROMYCIN 09250520733 No Longer Active Nitza Osman lips Scribe Active BENZONATATE 200 MG ORAL CAPSULE 1 three times a day as neede d for cough BENZONATATE 97771822755 No Longer Active Nitza Osman lips Scribe Active VITAMIN D3 46207 UNIT ORAL CAPSULE 1 pill Week x 4 mo nths for vitamin D deficiency/osteoporosis CHOLECALCIFEROL 85214657872 N o Longer Active Layla Mcmullen Active BACTROBAN 2 % EXTERNAL CREAM Apply to affected area BID for up to 10 days MUPIROCIN CALCIUM 34165982985 No Longer Active Ike Deluna MD Active CIPRO 500 MG ORAL TABLET 1 tablet by mouth twice daily CIPROFLOXACIN HCL 47298406733 No Longer Active Adriana Bender LPN Active AUGMENTIN 875-125 MG ORAL TABLET 1 po BID x 10 days 18/04/06 AMOXICILLIN-POT CLAVULANATE 49870943757 No Longer Active Adriana Bender LPN Active MODAFINIL 200 MG ORAL TABLET Take 1/2 tab po in the am and 1 /2 tab po at noon MODAFINIL 50886320463 Active Bertrand Patel DO Ac tive CYCLOBENZAPRINE HCL 10 MG ORAL TABLET Take 1 tab TID PRN for mus triston pain CYCLOBENZAPRINE HCL 69629173090 No Longer Active Bertrand Patel DO Active TESSALON PERLES 100 MG ORAL CAPSULE 1 tablet by mouth 3 times da juan pablo BENZONATATE 27713233752 No Longer Active Bertrand Patel DO Ac tive NEBULIZER use as directed NEBULIZERS 56614601370 No Longer Active Bertrand Patel DO Active ALBUTEROL SULFATE (2.5 MG/3ML) 0.083% INHALATION NEBUL IZATION SOLUTION one vial per nebulizer every 4-6 hours as needed ALBUTERO L SULFATE 50187847781 No Longer Active Bretrand Patel DO Active SYMBICORT 160-4.5 MCG/ACT INHALATION AEROSOL 2 puffs BID 9 BUDESONIDE-FORMOTEROL FUMARATE 88299905689 No Longer Active Bertrand Patel DO Active PREDNISONE 20 MG ORAL TABLET take 3 tabs daily for 3 d ays, 2 tabs daily for 3 days, 1 tab daily for 3 days, 1/2 tab daily for 3 days 08/02 PREDNISONE 13913358985 No Longer Active Silvia Arnold STITCHER SPECIAL MACHINE Acti ve AZITHROMYCIN 250 MG ORAL TABLET Take 2 tabs po today then 1 tab po daily AZITHROMYCIN 23070179449 No Longer Active Silvia gavin STITCHER SPECIAL MACHINE Active AUGMENTIN 875-125 MG ORAL TABLET 1 po BID x 10 days 20 19/07/13 AMOXICILLIN-POT CLAVULANATE 35601151950 No Longer Active Adriana Bender LPN Active CHEWABLE CALCIUM 500-200-40 MG-UNT-MCG ORAL TABLET CHEWABLE 1 chew tab bid CALCIUM-VITAMIN D-VITAMIN K 96816311384 Active Silvia garlandgypsy STITCHER SPECIAL MACHINE Active EQ COMPLETE MULTIVIT ADULT 50+ ORAL TABLET 1 tab po bid MULTIPLE VITAMINS-MINERALS 89285870096 Active Silvia Arnold STITCHER SPECIAL MACHINE Act jairo HYDROCODONE-ACETAMINOPHEN 7.5-325 MG ORAL TABLET TAKE ONE TAB EVERY 6 HOURS BY MOUTH NEEDED FOR PAIN HYDROCODONE-ACETAMINOPHEN 004 49850433 Active Adele Feldman NOTCHED BLADE LOADER Active LORTAB 7.5-500 MG ORAL TABLET take one po Q6 hours 201 09/12/01 HYDROCODONE-ACETAMINOPHEN 69069318185 No Longer Active Nirmal Robbins RN Active [facility] MELATONIN 5-10 MG ORAL TABLET EXTENDED RELEASE Jair e one by mouth daily at bedtime MELATONIN-PYRIDOXINE 75383652968 No Longer Acti ve Bertrand Patel DO Active VITAMIN E 200 UNIT ORAL CAPSULE 1 cap po qd VITAM IN E 92740835354 No Longer Active Bertrand Patel DO Active B-12 1000 MCG ORAL CAPSULE 1 tab daily CYANOCOB ALAMIN 31049766487 No Longer Active Bertrand Patel DO Active METFORMIN HCL 500 MG ORAL TABLET 1 bid METFOR MIN HCL 89272303642 No Longer Active Bertarnd Patel DO Active FUROSEMIDE 20 MG ORAL TABLET 1 pill by mouth daily if needed for edema FUROSEMIDE 14052350718 No Longer Active Bertrand Patel DO Active PRAVASTATIN SODIUM 20 MG ORAL TABLET 1 tablet by mouth daily at bedtime PRAVASTATIN SODIUM 76304600506 No Longer Active Bertrand Patel DO Active AUGMENTIN 875-125 MG ORAL TABLET 1 pill by mouth twice daily 201 09/10/00 AMOXICILLIN-POT CLAVULANATE 34467789982 No Longer Active Yoli Mercado MD PhD Active LEVAQUIN 500 MG ORAL TABLET 1 pill by mouth daily 2013 LEVOFLOXACIN 58207260182 No Longer Active Yoli Mercado MD PhD Acti ve AMLODIPINE BESYLATE 5 MG ORAL TABLET 1 tablet by mouth daily for blood pressure AMLODIPINE BESYLATE 64837932335 Active Bertrand Patel DO Active MICARDIS 80 MG ORAL TABLET 1 tablet daily for blood pressure 07/30 TELMISARTAN 32377383112 Active Bertrand Patel DO Active MICARDIS HCT 80-12.5 MG ORAL TABLET 1 qd TELMISARTAN-HCTZ 79701123092 No Longer Active Bertrand Patel DO Active CINNAMON ALPHA LIPOIC AC CMPLX CAPSULE by mouth twice a day in AM by mouth twice a day in PM ALPHA LIPOIC [id number] CA PS 65328203027 No Longer Active Bertrand Patel DO Active AZITHROMYCIN 500 MG INTRAVENOUS SOLUTION RECONSTITUTED 1 po q da y AZITHROMYCIN 04621862795 No Longer Active Bertrand Patel DO A ctive CYMBALTA 30 MG ORAL CAPSULE DELAYED RELEASE PARTICLES 1 cap by mouth daily DULOXETINE HCL 32769673201 No Longer Active Bertrand marquez DO Active CYMBALTA 60 MG ORAL CAPSULE DELAYED RELEASE PARTICLES 1 cap by mouth daily DULOXETINE HCL 10380622120 Active Bertrand Patel DO Active WELLBUTRIN 75 MG ORAL TABLET 2 times daily BUPR OPION HCL 26413175308 No Longer Active Bertrand Patel DO Active PROAIR HFA 108 (90 Base) MCG/ACT INHALATION AEROSOL SO LUTION take one to two puffs po Q4-6 hour prn cough and shortness of breath ALBUTEROL SULFATE 63385205886 Active Silvia Arnold APRN Active AZITHROMYCIN 250 MG ORAL TABLET take 2 po today then take 1 po days 2-5 AZITHROMYCIN 85638803073 No Longer Active Adolfo OSORIO Active PERMETHRIN 5 % EXTERNAL CREAM apply neck to toes tonig ht and then rinse off in morning. repeat at 7 days PERMETHRIN 92719640798 No Longer Active Adolfo OSORIO Active AMOXICILLIN 500 MG ORAL CAPSULE 2 po BID x 10 days 201 07/15/00 AMOXICILLIN 18835670797 No Longer Active Yoli Mercado MD PhD Acti ve ALPRAZOLAM 0.5 MG ORAL TABLET 1 tab by mouth tid ALPRAZOLAM 58439079884 Active Nitza Mullins LPN Active INSUPEN ULTRAFIN 31G X 6 MM USE DIRECTED INSULIN PEN NEEDLE 49407396321 No Longer Active Bertrand Patel DO Active TRANSDERM-SCOP (1.5 MG) 1 MG/3DAYS TRANSDERMAL PATCH 7 2 HOUR 1 patch applied behind ear q 3 day SCOPOLAMINE BASE 11319851878 No Lo nger Active Bertrand Patel DO Active MACRODANTIN 100 MG ORAL CAPSULE one p.o. b.i.d. x2 weeks NITROFURANTOIN MACROCRYSTAL 29953538865 No Longer Active Bertrand Patel DO Active MACRODANTIN 100 MG ORAL CAPSULE one p.o. b.i.d. x2 weeks MACRODANTIN 100 MG ORAL CAPSULE 1977175 NITROFURANTOIN MACROCRYSTAL Inactive TRANSDERM-SCOP (1.5 MG) 1 [...] days PERMETHRIN 5 % EXTER NAL CREAM 906523 PERMETHRIN Inactive WELLBUTRIN 75 MG ORAL TABLET 2 times daily WELLBUTRIN 75 MG ORAL TABLET 061509 BUPROPION HCL Inactive CYMBALTA 30 MG ORAL CAPSULE DELAYED RELEASE PARTICLES 1 cap by mouth daily CYMBALTA 30 MG ORAL CAPSULE DELAYED RELE ASE PARTICLES 447215 DULOXETINE HCL Inactive AZITHROMYCIN 500 MG INTRAVENOUS SOLUTION RECONSTITUTED 1 po q da y AZITHROMYCIN 500 MG INTRAVENOUS SOLUTION RECONSTITUTED 31517 846778 AZITHROMYCIN Inactive CINNAMON ALPHA LIPOIC AC CMPLX CAPSULE by mouth twice a day in AM by mouth twice a day in PM CINNAMON ALPHA LIPOIC AC CMPLX CAPSULE ALPHA LIPOIC [id number]-MA-KNVIEERT CAPS Inactive MICARDIS HCT 80-12.5 MG ORAL TABLET 1 qd 07/30 MICARDIS HCT 80-12.5 MG ORAL TABLET 585441 TELMISARTAN-HCTZ Inactive PRAVASTATIN SODIUM 20 MG ORAL TABLET 1 tablet by mouth daily at bedtime PRAVASTATIN SODIUM 20 MG ORAL TABLET 239188 PRAVASTATIN SODIUM Inactive FUROSEMIDE 20 MG ORAL TABLET 1 pill by mouth daily if needed for edema FUROSEMIDE 20 MG ORAL TABLET 299044 FUROSEMIDE Inactive METFORMIN HCL 500 MG ORAL TABLET 1 bid METFORMIN HCL 500 MG ORAL TABLET 054980 METFORMIN HCL Inactive B-12 1000 MCG ORAL CAPSULE 1 tab daily B -12 1000 MCG ORAL CAPSULE CYANOCOBALAMIN Inactive VITAMIN E 200 UNIT ORAL CAPSULE 1 cap po qd 1 VITAMIN E 200 UNIT ORAL CAPSULE 6619238 VITAMIN E Inactive [facility] MELATONIN 5-10 MG ORAL TABLET EXTENDED RELEASE Jair e one by mouth daily at bedtime [facility] MELATONIN 5-10 M G ORAL TABLET EXTENDED RELEASE MELATONIN-PYRIDOXINE Inactive LORTAB 7.5-500 MG ORAL TABLET take one po Q6 hours 201 09/12/01 LORTAB 7.5-500 MG ORAL TABLET 251151 HYDROCODONE-ACETAMINOPHEN Inactive AZITHROMYCIN 250 MG ORAL TABLET Take 2 tabs po today then 1 tab po daily AZITHROMYCIN 250 MG ORAL TABLET 727013 AZITHROMY BERNARDO Inactive SYMBICORT 160-4.5 MCG/ACT INHALATION AEROSOL 2 puffs BID 9 SYMBICORT 160-4.5 MCG/ACT INHALATION AEROSOL BUDESONIDE-FORM OTEROL FUMARATE Inactive ALBUTEROL SULFATE (2.5 MG/3ML) 0.083% INHALATION NEBUL IZATION SOLUTION one vial per nebulizer every 4-6 hours as needed ALBUTEROL SULFATE (2.5 MG/3ML) 0.083% INHALATION NEBULIZATION SOLUTION 837386 ALBUTER OL SULFATE Inactive NEBULIZER use as directed NEBULIZER NEBULI ZERS Inactive TESSALON PERLES 100 MG ORAL CAPSULE 1 tablet by mouth 3 times da juan pablo TESSALON PERLES 100 MG ORAL CAPSULE 698073 BENZONATATE Inactive CYCLOBENZAPRINE HCL 10 MG ORAL TABLET Take 1 tab TID PRN for mus triston pain CYCLOBENZAPRINE HCL 10 MG ORAL TABLET 969229 CYCLOBENZA ANUJA HCL Inactive AUGMENTIN 875-125 MG ORAL TABLET 1 po BID x 10 days 20 18/04/06 AUGMENTIN 875-125 MG ORAL TABLET 527800 AMOXICILLIN-POT CLAVULANATE Inactive BACTROBAN 2 % EXTERNAL CREAM Apply to affected area BID for up to 10 days BACTROBAN 2 % EXTERNAL CREAM 304853 MUPIROCIN CA LCIUM Inactive VITAMIN D3 92356 UNIT ORAL CAPSULE 1 pill Week x 4 mo nths for vitamin D deficiency/osteoporosis VITAMIN D3 03532 UNIT ORAL CAPSULE CHOLECALCIFEROL Inactive BENZONATATE 200 MG ORAL CAPSULE 1 three times a day as neede d for cough BENZONATATE 200 MG ORAL CAPSULE 083195 BENZONATA TE Inactive ZITHROMAX Z-MARTIN 250 MG ORAL TABLET 2 today and then 1 daily for 4 days ZITHROMAX Z-MARTIN 250 MG ORAL TABLET 367804 AZITHR OMYCIN Inactive ADDERALL 10 MG ORAL TABLET 1 tab twice daily 2 ADDERALL 10 MG ORAL TABLET 606296 AMPHETAMINE-DEXTROAMPHETAMINE Inactive AMOXICILLIN 500 MG ORAL CAPSULE 2 po BID x 10 days 201 07/15/00 AMOXICILLIN 500 MG ORAL CAPSULE 961345 AMOXICILLIN Inactive AZITHROMYCIN 250 MG ORAL TABLET take 2 po today then take 1 po days 2-5 AZITHROMYCIN 250 MG ORAL TABLET 839615 AZITHROMY BERNARDO Inactive LEVAQUIN 500 MG ORAL TABLET 1 pill by mouth daily 2013 LEVAQUIN 500 MG ORAL TABLET 968368 LEVOFLOXACIN Inactive AUGMENTIN 875-125 MG ORAL TABLET 1 pill by mouth twice daily 201 09/10/00 AUGMENTIN 875-125 MG ORAL TABLET 474511 AMOXICILLIN-POT CLAVULANATE Inactive AUGMENTIN 875-125 MG ORAL TABLET 1 po BID x 10 days 19/07/13 AUGMENTIN 875-125 MG ORAL TABLET 390990 AMOXICILLIN-POT CLAVULANATE Inactive PREDNISONE 20 MG ORAL TABLET take 3 tabs daily for 3 d ays, 2 tabs daily for 3 days, 1 tab daily for 3 days, 1/2 tab daily for 3 days 08/02 PREDNISONE 20 MG ORAL TABLET 883611 PREDNISONE Inactive CIPRO 500 MG ORAL TABLET 1 tablet by mouth twice daily CIPRO 500 MG ORAL TABLET 844577 CIPROFLOXACIN HCL Inactive Vital Signs Date Name [...] 0-19 Encounters Code Encounter Date Provider Facility CPT-54607 Level 4 Est. Patient 15:33:35 ANGIO TECHNOLOGIST Bertrand marquez [facility] CPT-63097 Level 4 Est. Patient 12:31:54 CDT Bertrand marquez [facility] CPT-96709 Level 3 Est. Patient 11:27:00 ANGIO TECHNOLOGIST Ike Deluna MD [facility] CPT-71800 Level 3 Est. Patient 08:50:57 ANGIO TECHNOLOGIST Dangelo STITCHER SPECIAL MACHINE [facility] CPT-19346 Level 3 Est. Patient 10:04:13 CDT Bertrand marquez [facility] CPT-11513 Level 4 Est. Patient 16:02:10 ANGIO TECHNOLOGIST Dangelo STITCHER SPECIAL MACHINE [facility] CPT-67386 Level 3 Est. Patient 13:04:54 ANGIO TECHNOLOGIST Dangelo STITCHER SPECIAL MACHINE [facility] CPT-82445 Level 3 Est. Patient 12:56:37 CDT Bertrand marquez [facility] CPT-11342 Level 3 Est. Patient 19:12:03 CDT Yoli tolbert MD [facility] CPT-16580 Level 3 Est. Patient 14:36:01 CDT Yoli tolbert MD [facility] CPT-85960 Level 2 Est. Patient 08:00:22 CDT Jcarlos dc MD [facility] CPT-34020 Level 3 Est. Patient 19:06:55 CDT Bertrand marquez [facility] CPT-32681 Level 3 Est. Patient 10:08:23 ANGIO TECHNOLOGIST Bertrand marquez [facility] CPT-19876 Level 3 Est. Patient 16:37:54 ANGIO TECHNOLOGIST Bertrand marquez [facility] CPT-23948 Level 3 Est. Patient 11:31:59 ANGIO TECHNOLOGIST Bertrand marquez [facility] CPT-77360 Level 3 Est. Patient 10:20:08 CDT Adolfo villasenor [facility] CPT-48734 Level 3 Est. Patient 13:45:20 CDT Sanket buckley [facility] CPT-08848 Level 3 Est. Patient 12:51:06 CDT Adolfo villasenor [facility] CPT-11865 Level 3 Est. Patient 11:22:51 ANGIO TECHNOLOGIST Yoli tolbert MD [facility] CPT-41462 Level 3 Est. Patient 13:33:19 CDT Bertrand marquez [facility] Procedures Code Procedure Name Date Entry Date Standard Desc ription CPT-70658 Wound Culture - LAB USE ONLY 15:45:25 CDT 2 CPT-02902 Venipuncture Draw Fee 10:23:01 CDT CPT-J0696 Rocephin 1000 mg (Ceftriaxone) 16:20:30 ANGIO TECHNOLOGIST CPT-97155 Abx/Therapy Injection 16:20:29 ANGIO TECHNOLOGIST CPT-J0696 Rocephin 1gm Inj Solr 15:51:59 ANGIO TECHNOLOGIST CPT-45348 Chest 2V Frontal and Lat 15:20:28 ANGIO TECHNOLOGIST 07/22 CPT-41731 Breathing Tx 14:51:55 ANGIO TECHNOLOGIST CPT-37095 Breathing Tx 09:57:16 ANGIO TECHNOLOGIST CPT-85101 Knee comp 4/> V 11:58:06 ANGIO TECHNOLOGIST
--- OUTSIDE RECORDS SUMMARY | 2019-11-13 10:15 | XMS REPORT | Clinical Summary ---
Author Author Admin, Enrique Adamson Organization [employer] Address Unknown Phone Unavailable Allergies, Adverse Reactions, Alerts Allergy Name Reaction Description Start Date Severity Status Pr ovider BYETTA 10 MCG PEN Critical Active Lilia Clemnos RN METAMUCIL Critical Active Bertrand Patel DO [...] pain KNEE PAIN, RIGHT 719.46 Active Adolfo OSROIO Pain in joint involving lower leg Knee [...] Cough SINUSITIS, ACUTE 461.9 Active Silvia PARISI wine steward/stewardess sinusitis, unspecified Fatigue 780.79 Active Silvia Arnold [...] Generic Name NDC Status Provider Patient Instruction AZITHROMYCIN 250 MG ORAL TABS Take 2 tabs po today then 1 ta b po daily AZITHROMYCIN 95652434748 Active Keysha Jones MA Active AUGMENTIN 875-125 MG TAB 1 po BID x 10 days AMOXICILLIN- POT CLAVULANATE 57373189379 Active Adriana Bender LPN Ac tive TESSALON PERLES 100 MG CAP 1 tablet by mouth 3 times daily BENZONATATE 53618012313 Active Silvia Arnold APRN Active CHEWABLE CALCIUM 500-200-40 MG-UNT-MCG ORAL CHEW 1 chew tab bid 201 11/03/03 CALCIUM-VITAMIN D-VITAMIN K 88755953909 Active Silvia Arnold APRN Active EQ COMPLETE MULTIVIT ADULT 50+ ORAL TABS 1 tab po bid MULTIPLE VITAMINS-MINERALS 88209156848 Active Silvia Arnold APRN Act jairo HYDROCODONE-ACETAMINOPHEN 7.5-325 MG TABS TAKE ONE TAB EVERY 6 HOURS BY MOUTH NEEDED FOR PAIN HYDROCODONE-ACETAMINOPHEN 16111554908 Acti ve Bertrand Patel DO Active LORTAB 7.5-500 MG TABS take one po Q6 hours HYDROCODONE-ACETAMINOPHEN No Longer Active Nirmal Robbins RN Active [facility] MELATONIN 5-10 MG CR-TABS Take one by mouth daily at bedtime MELATONIN-PYRIDOXINE 16714057132 No Longer Active Bertrand Patel DO Active VITAMIN E 200 UNIT CAPS 1 cap po qd VITAMIN E 316 92245269 No Longer Active Bertrand Patel DO Active B-12 1000 MCG CAPS 1 tab daily CYANOCOBALAMIN 31 092649943 No Longer Active Bertrand Patel DO Active METFORMIN HCL 500 MG TABS 1 bid METFORMIN HCL 91527217354 No Longer Active Bertrand Patel DO Active FUROSEMIDE 20 MG TABS 1 pill by mouth daily if needed for edema FUROSEMIDE 48207181658 No Longer Active Bertrand Patel DO Act jairo PRAVASTATIN SODIUM 20 MG TABS 1 tablet by mouth daily at bedtime PRAVASTATIN SODIUM 25195114521 No Longer Active Bertrand Patel DO Active AUGMENTIN 875-125 MG TABS 1 pill by mouth twice daily AMOXICILLIN-POT CLAVULANATE 19876213332 No Longer Active Yoli Mercado MD PhD Active LEVAQUIN 500 MG TABS 1 pill by mouth daily LEVO FLOXACIN 47129536208 No Longer Active Yoli Mercado MD PhD Active CYCLOBENZAPRINE HCL 10 MG TABS Take 1 tab TID PRN for muscle pain CYCLOBENZAPRINE HCL 80827050489 Active Brittni Perrin Prakash HAND CHAIN MAKER Active AMLODIPINE BESYLATE 5 MG TABS 1 tablet by mouth daily for bl ood pressure AMLODIPINE BESYLATE 49166500976 Active Nitza Dorman PT,RMA Active MICARDIS 80 MG TABS 1 tablet daily for blood pressure TELMISARTAN 67847001235 Active Nitza Mullins RPT,RMA Active MICARDIS HCT 80-12.5 MG TABS 1 qd TELMISARTA N-HCTZ 94607301598 No Longer Active Bertrand Patel DO Active CINNAMON ALPHA LIPOIC AC CMPLX CAPS by mouth twice a d ay in AM by mouth twice a day in PM ALPHA LIPOIC [id number] CAPS 041133 23945 No Longer Active Bertrand Patel DO Active AZITHROMYCIN 500 MG SOLR 1 po q day AZITHROMYCI N 49405014076 No Longer Active Bertrand Patel DO Active CYMBALTA 30 MG CPEP 1 cap by mouth daily DULOXE CATHI HCL 83798440973 No Longer Active Bertrand Patel DO Active CYMBALTA 60 MG CPEP 1 cap by mouth daily DULOXE CATHI HCL 48055121780 Active Nitza Mullins RPT,RMA Active WELLBUTRIN 75 MG TABS 2 times daily BUPROPION H CL 33377009329 No Longer Active Bertrand Patel DO Active PROAIR HFA 108 (90 BASE) MCG/ACT AERS take one to two puffs po Q4-6 hour prn cough and shortness of breath ALBUTEROL SULFATE 6705593060 2 Active Silvia Arnold EDUCATOR SENIOR CLINICAL Active AZITHROMYCIN 250 MG TABS take 2 po today then take 1 po days 2-5 AZITHROMYCIN 93705931203 No Longer Active Adolfo OSORIO Active PERMETHRIN 5 % CREA apply neck to toes tonight a nd then rinse off in morning. repeat at 7 days PERMETHRIN 76640930275 No Longer Active Adolfo OSORIO Active AMOXICILLIN 500 MG CAPS 2 po BID x 10 days AMOX ICILLIN 53637261477 No Longer Active Yoli Mercado MD PhD Active ALPRAZOLAM 0.5 MG TAB 1 tab by mouth tid ALPRAZOL AM 65129681651 Active Bertrand Patel DO Active INSUPEN ULTRAFIN 31G X 6 MM MISC USE DIRECTED 03/04 INSULIN PEN NEEDLE 95365954241 No Longer Active Bertrand Patel DO Active TRANSDERM-SCOP 1.5 MG PT72 1 patch applied behind ear q 3 day 20 04/13/28 SCOPOLAMINE BASE 24321859571 No Longer Active Bertrand Patel DO Active MACRODANTIN 100 MG CAPS one p.o. b.i.d. x2 weeks 03/04 NITROFURANTOIN MACROCRYSTAL 11863858369 No Longer Active Bertrand Patel DO Active MACRODANTIN 100 MG CAPS one p.o. b.i.d. x2 weeks 03/04 MACRODANTIN 100 MG CAPS 3163769 NITROFURANTOIN MACROCRYSTAL Inactive TRANSDERM-SCOP 1.5 MG PT72 [...] at 7 days PERMETHRIN 5 % CREA 893851 PERMETHRIN Inactive WELLBUTRIN 75 MG TABS 2 times daily WELLBUTRIN 75 MG TABS 771127 BUPROPION HCL Inactive CYMBALTA 30 MG CPEP 1 cap by mouth daily CYMBALTA 30 MG CPEP 014217 DULOXETINE HCL Inactive AZITHROMYCIN 500 MG SOLR 1 po q day ALTA THROMYCIN 500 MG SOLR 97341606657 AZITHROMYCIN Inactive CINNAMON ALPHA LIPOIC AC CMPLX CAPS by mouth twice a d ay in AM by mouth twice a day in PM CINNAMON ALPHA LIPOIC AC CMPLX CAPS ALPHA LIPOIC [id number] CAPS Inactive MICARDIS HCT 80-12.5 MG TABS 1 qd MICARDI S HCT 80-12.5 MG TABS 335537 TELMISARTAN-HCTZ Inactive PRAVASTATIN SODIUM 20 MG TABS 1 tablet by mouth daily at bedtime PRAVASTATIN SODIUM 20 MG TABS 574338 PRAVASTATIN SODIUM Inactive FUROSEMIDE 20 MG TABS 1 pill by mouth daily if needed for edema FUROSEMIDE 20 MG TABS 028529 FUROSEMIDE Inactive METFORMIN HCL 500 MG TABS 1 bid METFORMIN HCL 500 MG TABS 948230 METFORMIN HCL Inactive B-12 1000 MCG CAPS 1 tab daily B-12 1000 MCG CAP S CYANOCOBALAMIN Inactive VITAMIN E 200 UNIT CAPS 1 cap po qd VITAMIN E 2 00 UNIT CAPS 0803036 VITAMIN E Inactive [facility] MELATONIN 5-10 MG CR-TABS Take one by mouth daily at bedtime [facility] MELATONIN 5-10 MG CR-TABS MELATONIN-PYRIDOXI NE Inactive LORTAB 7.5-500 MG TABS take one po Q6 hours LORTAB 7.5-500 MG TABS HYDROCODONE-ACETAMINOPHEN Inactive AMOXICILLIN 500 MG CAPS 2 po BID x 10 days AMOXICILLIN 500 MG CAPS 992470 AMOXICILLIN Inactive AZITHROMYCIN 250 MG TABS take 2 po today then take 1 po days 2-5 AZITHROMYCIN 250 MG TABS 1775129 AZITHROMYCIN Inactiv e LEVAQUIN 500 MG TABS 1 pill by mouth daily LEVAQUIN 500 MG TABS 737320 LEVOFLOXACIN Inactive AUGMENTIN 875-125 MG TABS 1 pill by mouth twice daily AUGMENTIN 875-125 MG TABS 345624 AMOXICILLIN-POT CLAVULANATE Inacti ve Vital Signs Date [...] Negative;Positive Encounters Code Encounter Date Provider Facility CPT-09947 Level 3 Est. Patient 13:04:54 VASCULAR TECHNOLOGIST SONOGRAPHER Dangelo TOVARN [facility] CPT-40112 Level 3 Est. Patient 12:56:37 CDT Bertrand marquez [facility] CPT-20316 Level 3 Est. Patient 19:12:03 CDT Yoli tolbert MD [facility]-88231 Level 3 Est. Patient 14:36:01 CDT Yoli tolbert MD [facility] CPT-57317 Level 2 Est. Patient 08:00:22 CDT Jcarlos dc MD [facility]-84021 Level 3 Est. Patient 19:06:55 CDT Bertrand marquez [facility] CPT-81032 Level 3 Est. Patient 10:08:23 VASCULAR TECHNOLOGIST SONOGRAPHER Bertrand marquez [facility] CPT-11199 Level 3 Est. Patient 16:37:54 VASCULAR TECHNOLOGIST SONOGRAPHER Bertrand marquez [facility] CPT-02617 Level 3 Est. Patient 11:31:59 VASCULAR TECHNOLOGIST SONOGRAPHER Bertrand marquez [facility] CPT-74274 Level 3 Est. Patient 10:20:08 CDT Adolfo villasenor [facility] CPT-83784 Level 3 Est. Patient 13:45:20 CDT Sanket buckley [facility] CPT-87122 Level 3 Est. Patient 12:51:06 CDT Adolfo villasenor [facility] CPT-58750 Level 3 Est. Patient 11:22:51 VASCULAR TECHNOLOGIST SONOGRAPHER Yoli tolbert MD [facility]-34798 Level 3 Est. Patient 13:33:19 CDT Bertrand marquez [facility] Procedures Code Procedure Name Date Entry Date Standard Desc ription CPT-78952 Breathing Tx 09:57:16 VASCULAR TECHNOLOGIST SONOGRAPHER CPT-52941 Knee comp 4/> V 11:58:06 VASCULAR TECHNOLOGIST SONOGRAPHER
--- OUTSIDE RECORDS SUMMARY | 2019-11-13 10:15 | XMS REPORT | Clinical Summary ---
Author Author Admin, Enrique Adamson Organization [employer] Address Unknown Phone Unavailable Allergies, Adverse Reactions, [...] PhD RIB PAIN, RIGHT SIDED ICD-786.50 Inactive oYli Mercado MD PhD Pharyngitis-Acute ICD-462 Inactive Bertrand [...] NDC Status Provider Patient Instruction VITAMIN D3 60061 UNIT CAPS 1 pill Week x 4 months for vitamin D deficiency/osteoporosis CHOLECALCIFEROL 23335526779 Active Darlyn Monzon Active BENZONATATE 200 MG ORAL CAPS 1 three times a day as needed for c ough BENZONATATE 96375535062 Active Ike Deluna MD Acti ve ZITHROMAX Z-MARTIN 250 MG TABS 2 today and then 1 daily for 4 days 201 12/01/06 AZITHROMYCIN 92905643222 Active Ike Deluna MD Active ADDERALL 10 MG ORAL TABS 1 tab twice daily AMPHETAMINE-DEXTROAMPHETAMINE 06946508944 Active Ike Deluna MD Active BACTROBAN 2 % CREAM Apply to affected area BID for up to 10 days MUPIROCIN CALCIUM 52654109095 No Longer Active Ike Deluna MD Active CIPRO 500 MG TAB 1 tablet by mouth twice daily CIPROFLOXACIN HCL 36840727861 No Longer Active Adriana Bender LPN Active AUGMENTIN 875-125 MG TAB 1 po BID x 10 days AMOXICILLIN- POT CLAVULANATE 53844420084 No Longer Active Adriana Bender LPN Active MODAFINIL 200 MG ORAL TABS Take 1/2 tab po in the am and 1/2 tab po at noon MODAFINIL 01306147101 Active Darlyn Monzon A ctive CYCLOBENZAPRINE HCL 10 MG TABS Take 1 tab TID PRN for muscle pain CYCLOBENZAPRINE HCL 79301565270 No Longer Active Bertrand Patel DO Ac tive TESSALON PERLES 100 MG CAP 1 tablet by mouth 3 times daily 07/07 BENZONATATE 63333287209 No Longer Active Bertrand Patel DO Ac tive NEBULIZER MISC use as directed NEBULIZERS 687890 54173 No Longer Active Bertrand Patel DO Active ALBUTEROL SULFATE 0.083 % NEBU SOLN one vial per nebul izer every 4-6 hours as needed ALBUTEROL SULFATE 97999116456 No Longer Active Bertrand Patel DO Active SYMBICORT 160-4.5 MCG/ACT AERO 2 puffs BID BUDESONIDE- FORMOTEROL FUMARATE 84305215219 No Longer Active Bertrand Patel DO Ac tive PREDNISONE 20 MG TAB take 3 tabs daily for 3 days , 2 tabs daily for 3 days, 1 tab daily for 3 days, 1/2 tab daily for 3 days P REDNISONE 21371440063 No Longer Active Silvia Arnold APRN Active AZITHROMYCIN 250 MG ORAL TABS Take 2 tabs po today then 1 ta b po daily AZITHROMYCIN 38175674492 No Longer Active Silvia Jorge leslye TOVARN Active AUGMENTIN 875-125 MG TAB 1 po BID x 10 days AMOXICILLIN- POT CLAVULANATE 47404276179 No Longer Active Adriana Bender LPN Active CHEWABLE CALCIUM 500-200-40 MG-UNT-MCG ORAL CHEW 1 chew tab bid 201 11/03/03 CALCIUM-VITAMIN D-VITAMIN K 05063329057 Active Silvia Arnold APRN Active EQ COMPLETE MULTIVIT ADULT 50+ ORAL TABS 1 tab po bid MULTIPLE VITAMINS-MINERALS 58076894197 Active Silvia Arnold APRN Act jairo HYDROCODONE-ACETAMINOPHEN 7.5-325 MG TABS TAKE ONE TAB EVERY 6 HOURS BY MOUTH NEEDED FOR PAIN HYDROCODONE-ACETAMINOPHEN 08902676676 Acti raheel Mcmullen Active LORTAB 7.5-500 MG TABS take one po Q6 hours HYDROCODONE-ACETAMINOPHEN No Longer Active Nirmal Robbins RN Active [facility] MELATONIN 5-10 MG CR-TABS Take one by mouth daily at bedtime MELATONIN-PYRIDOXINE 94535098663 No Longer Active Bertrand Patel DO Active VITAMIN E 200 UNIT CAPS 1 cap po qd VITAMIN E 316 02310521 No Longer Active Bertrand Patel DO Active B-12 1000 MCG CAPS 1 tab daily CYANOCOBALAMIN 31 717210292 No Longer Active Bertrand Patel DO Active METFORMIN HCL 500 MG TABS 1 bid METFORMIN HCL 86885780741 No Longer Active Bertrand Patel DO Active FUROSEMIDE 20 MG TABS 1 pill by mouth daily if needed for edema FUROSEMIDE 21131864002 No Longer Active Bertrand Patel DO Act jairo PRAVASTATIN SODIUM 20 MG TABS 1 tablet by mouth daily at bedtime PRAVASTATIN SODIUM 41082062693 No Longer Active Bertrand Patel DO Active AUGMENTIN 875-125 MG TABS 1 pill by mouth twice daily AMOXICILLIN-POT CLAVULANATE 64155215955 No Longer Active Yoli Mercado MD PhD Active LEVAQUIN 500 MG TABS 1 pill by mouth daily LEVO FLOXACIN 17622763317 No Longer Active Yoli Mercado MD PhD Active AMLODIPINE BESYLATE 5 MG TABS 1 tablet by mouth daily for bl ood pressure AMLODIPINE BESYLATE 58144121168 Active Darlyn Monzon Active MICARDIS 80 MG TABS 1 tablet daily for blood pressure TELMISARTAN 38144312557 Active Bertrand Patel DO Active MICARDIS HCT 80-12.5 MG TABS 1 qd TELMISARTA N-HCTZ 54477749010 No Longer Active Bertrand Patel DO Active CINNAMON ALPHA LIPOIC AC CMPLX CAPS by mouth twice a d ay in AM by mouth twice a day in PM ALPHA LIPOIC ZQPS-NM-BJQBBMCE CAPS 635212 56248 No Longer Active Bertrand Patel DO Active AZITHROMYCIN 500 MG SOLR 1 po q day AZITHROMYCI N 50674466845 No Longer Active Bertrand Patel DO Active CYMBALTA 30 MG CPEP 1 cap by mouth daily DULOXE CATHI HCL 32623453152 No Longer Active Bertrand Patel DO Active CYMBALTA 60 MG CPEP 1 cap by mouth daily DULOXE CATHI HCL 04942722948 Active Keysha Jones MA Active WELLBUTRIN 75 MG TABS 2 times daily BUPROPION H CL 94912523069 No Longer Active Bertrand W Jorge DO Active PROAIR HFA 108 (90 BASE) MCG/ACT AERS take one to two puffs po Q4-6 hour prn cough and shortness of breath ALBUTEROL SULFATE 3244770652 2 Active Silvia Arnold CHIEF WHARFINGER Active AZITHROMYCIN 250 MG TABS take 2 po today then take 1 po days 2-5 AZITHROMYCIN 77337965309 No Longer Active Adolfo OSORIO Active PERMETHRIN 5 % CREA apply neck to toes tonight a nd then rinse off in morning. repeat at 7 days PERMETHRIN 90645639018 No Longer Active Adolfo OSORIO Active AMOXICILLIN 500 MG CAPS 2 po BID x 10 days AMOX ICILLIN 69525388609 No Longer Active Yoli Mercado MD PhD Active ALPRAZOLAM 0.5 MG TAB 1 tab by mouth tid ALPRAZOL AM 35117102600 Active Nitza Mullins RPT,RMA Active INSUPEN ULTRAFIN 31G X 6 MM MISC USE DIRECTED 03/04 INSULIN PEN NEEDLE 37803352426 No Longer Active Bertrand Patel DO Active TRANSDERM-SCOP 1.5 MG PT72 1 patch applied behind ear q 3 day 20 04/13/28 SCOPOLAMINE BASE 29286362945 No Longer Active Bertrand Patel DO Active MACRODANTIN 100 MG CAPS one p.o. b.i.d. x2 weeks 03/04 NITROFURANTOIN MACROCRYSTAL 43409994876 No Longer Active Bertrand Patel DO Active MACRODANTIN 100 MG CAPS one p.o. b.i.d. x2 weeks 03/04 MACRODANTIN 100 MG CAPS 6094280 NITROFURANTOIN MACROCRYSTAL Inactive TRANSDERM-SCOP 1.5 MG PT72 [...] at 7 days PERMETHRIN 5 % CREA 066167 PERMETHRIN Inactive WELLBUTRIN 75 MG TABS 2 times daily WELLBUTRIN 75 MG TABS BUPROPION HCL Inactive CYMBALTA 30 MG CPEP 1 cap by mouth daily CYMBALTA 30 MG CPEP 283719 DULOXETINE HCL Inactive AZITHROMYCIN 500 MG SOLR 1 po q day ALTA THROMYCIN 500 MG SOLR 07141404276 AZITHROMYCIN Inactive CINNAMON ALPHA LIPOIC AC CMPLX CAPS by mouth twice a d ay in AM by mouth twice a day in PM CINNAMON ALPHA LIPOIC AC CMPLX CAPS ALPHA LIPOIC HRJE-OV-MOLCSIIC CAPS Inactive MICARDIS HCT 80-12.5 MG TABS 1 qd MICARDI S HCT 80-12.5 MG TABS 585409 TELMISARTAN-HCTZ Inactive PRAVASTATIN SODIUM 20 MG TABS 1 tablet by mouth daily at bedtime PRAVASTATIN SODIUM 20 MG TABS 816797 PRAVASTATIN SODIUM Inactive FUROSEMIDE 20 MG TABS 1 pill by mouth daily if needed for edema FUROSEMIDE 20 MG TABS 564832 FUROSEMIDE Inactive METFORMIN HCL 500 MG TABS 1 bid METFORMIN HCL 500 MG TABS 648413 METFORMIN HCL Inactive B-12 1000 MCG CAPS 1 tab daily B-12 1000 MCG CAP S CYANOCOBALAMIN Inactive VITAMIN E 200 UNIT CAPS 1 cap po qd VITAMIN E 2 00 UNIT CAPS 4697029 VITAMIN E Inactive [facility] MELATONIN 5-10 MG CR-TABS Take one by mouth daily at bedtime [facility] MELATONIN 5-10 MG CR-TABS MELATONIN-PYRIDOXI NE Inactive LORTAB 7.5-500 MG TABS take one po Q6 hours LORTAB 7.5-500 MG TABS HYDROCODONE-ACETAMINOPHEN Inactive AZITHROMYCIN 250 MG ORAL TABS Take 2 tabs po today then 1 ta b po daily AZITHROMYCIN 250 MG ORAL TABS 5955156 AZITHROMYCI N Inactive SYMBICORT 160-4.5 MCG/ACT AERO 2 puffs BID SYMBICORT 160- 4.5 MCG/ACT AERO BUDESONIDE-FORMOTEROL FUMARATE Inactive ALBUTEROL SULFATE 0.083 % NEBU SOLN one vial per nebul izer every 4-6 hours as needed ALBUTEROL SULFATE 0.083 % NEBU SOLN 01591 8 ALBUTEROL SULFATE Inactive NEBULIZER MISC use as directed NEBULIZER MISC NEBULIZERS Inactive TESSALON PERLES 100 MG CAP 1 tablet by mouth 3 times daily 07/07 TESSALON PERLES 100 MG CAP 871706 BENZONATATE Inact jairo CYCLOBENZAPRINE HCL 10 MG TABS Take 1 tab TID PRN for muscle pain CYCLOBENZAPRINE HCL 10 MG TABS 752633 CYCLOBENZAPRINE HCL Inactive AUGMENTIN 875-125 MG TAB 1 po BID x 10 days AUGMENTIN 875- 125 MG TAB 234482 AMOXICILLIN-POT CLAVULANATE Inactive BACTROBAN 2 % CREAM Apply to affected area BID for up to 10 days BACTROBAN 2 % CREAM 280390 MUPIROCIN CALCIUM Inactive AMOXICILLIN 500 MG CAPS 2 po BID x 10 days AMOXICILLIN 500 MG CAPS 804905 AMOXICILLIN Inactive AZITHROMYCIN 250 MG TABS take 2 po today then take 1 po days 2-5 AZITHROMYCIN 250 MG TABS 4379411 AZITHROMYCIN Inactiv e LEVAQUIN 500 MG TABS 1 pill by mouth daily LEVAQUIN 500 MG TABS 249852 LEVOFLOXACIN Inactive AUGMENTIN 875-125 MG TABS 1 pill by mouth twice daily AUGMENTIN 875-125 MG TABS 397514 AMOXICILLIN-POT CLAVULANATE Inacti ve AUGMENTIN 875-125 MG TAB 1 po BID x 10 days AUGMENTIN 875- 125 MG TAB 227121 AMOXICILLIN-POT CLAVULANATE Inactive PREDNISONE 20 MG TAB take 3 tabs daily for 3 days , 2 tabs daily for 3 days, 1 tab daily for 3 days, 1/2 tab daily for 3 days PREDNISONE 20 MG TAB 248621 PREDNISONE Inactive CIPRO 500 MG TAB 1 tablet by mouth twice daily CIPRO 500 MG TAB 261595 CIPROFLOXACIN HCL Inactive Vital Signs Date Name [...] B/CREAT W/RATIO, Thyroid Stimula ... - Chemistry LDL cholesterol, serum 109 mg/dL 0-130 HDL cholesterol, serum 80 mg/dL 32-96 triglyceride, serum, fasting 56 mg/dL 30-200 cholesterol, serum 200 mg/dL 257-899 4555/07/22 hemoglobin A1C, blood, as % of total hemoglobin 5.8 % 4.3-6.0 albumin/creatinine ratio, urine < 30 mg/g mg/g{creat} 0-2 9 TSH 1.16 m[iU]/mL 0.36-3.74 sodium, serum 142 mmol/L 385-495 3380/07/22 carbon dioxide, venous blood 33.1 mmol/L 21.0-32 [...] 0-19 Encounters Code Encounter Date Provider Facility CPT-65824 Level 4 Est. Patient 12:31:54 CDT Bertrand marquez [facility] CPT-79902 Level 3 Est. Patient 11:27:00 MAKEUP ARTIST Ike Deluna MD [facility] CPT-70193 Level 3 Est. Patient 08:50:57 MAKEUP ARTIST Dangelo CHIEF WHARFINGER [facility] CPT-26544 Level 3 Est. Patient 10:04:13 CDT Bertrand marquez [facility] CPT-64884 Level 4 Est. Patient 16:02:10 MAKEUP ARTIST Dangelo BARJAAS [facility] CPT-63821 Level 3 Est. Patient 13:04:54 MAKEUP ARTIST Dangelo BARAJAS [facility] CPT-25404 Level 3 Est. Patient 12:56:37 CDT Bertrand marquez [facility] CPT-17330 Level 3 Est. Patient 19:12:03 CDT Yoli tolbert MD [facility]-42964 Level 3 Est. Patient 14:36:01 CDT Yoli tolbert MD [facility] CPT-57826 Level 2 Est. Patient 08:00:22 CDT Jcarlos dc MD [facility]-46035 Level 3 Est. Patient 19:06:55 CDT Bertrand marquez [facility] CPT-37066 Level 3 Est. Patient 10:08:23 MAKEUP ARTIST Bertrand marquez [facility] CPT-47766 Level 3 Est. Patient 16:37:54 MAKEUP ARTIST Bertrand marquez [facility] CPT-19933 Level 3 Est. Patient 11:31:59 MAKEUP ARTIST Bertrand marquez [facility] CPT-28048 Level 3 Est. Patient 10:20:08 CDT Adolfo villasenor [facility] CPT-38260 Level 3 Est. Patient 13:45:20 CDT Sanket Josekelvin buckley [facility] CPT-24138 Level 3 Est. Patient 12:51:06 CDT Adolfo villasenor [facility] CPT-20721 Level 3 Est. Patient 11:22:51 MAKEUP ARTIST Yoli tolbert MD [facility] CPT-56777 Level 3 Est. Patient 13:33:19 CDT Bertrand marquez [facility] Procedures Code Procedure Name Date Entry Date Standard Desc ription CPT-55958 Wound Culture - LAB USE ONLY 15:45:25 CDT 2 CPT-85850 Venipuncture Draw Fee 10:23:01 CDT CPT-J0696 Rocephin 1000 mg (Ceftriaxone) 16:20:30 MAKEUP ARTIST CPT-94175 Abx/Therapy Injection 16:20:29 MAKEUP ARTIST CPT-J0696 Rocephin 1gm Inj Solr 15:51:59 MAKEUP ARTIST CPT-44394 Chest 2V Frontal and Lat 15:20:28 MAKEUP ARTIST 07/22 CPT-09085 Breathing Tx 14:51:55 MAKEUP ARTIST CPT-31502 Breathing Tx 09:57:16 MAKEUP ARTIST CPT-90067 Knee comp 4/> V 11:58:06 MAKEUP ARTIST
--- OUTSIDE RECORDS SUMMARY | 2019-11-13 10:15 | XMS REPORT | Clinical Summary ---
Author Author Admin, Enrique Adamson Organization [employer] Address Unknown Phone Unavailable Allergies, Adverse Reactions, [...] RISK OF SLEEP APNEA V12.59 Active Adolfo OSOIRO Other personal history of diseases of circulatory [...] NDC Status Provider Patient Instruction VITAMIN D3 26261 UNIT CAPS 1 pill Week x 4 months for vitamin D deficiency/osteoporosis CHOLECALCIFEROL 84996792556 Active Darlyn Monzon Active BENZONATATE 200 MG ORAL CAPS 1 three times a day as needed for c ough BENZONATATE 97839567219 Active Ike Deluna MD Acti ve ZITHROMAX Z-MARTIN 250 MG TABS 2 today and then 1 daily for 4 days 201 12/01/06 AZITHROMYCIN 12047614708 Active Ike Deluna MD Active ADDERALL 10 MG ORAL TABS 1 tab twice daily AMPHETAMINE-DEXTROAMPHETAMINE 25743354761 Active Ike Deluna MD Active BACTROBAN 2 % CREAM Apply to affected area BID for up to 10 days MUPIROCIN CALCIUM 36603661992 No Longer Active Ike Deluna MD Active CIPRO 500 MG TAB 1 tablet by mouth twice daily CIPROFLOXACIN HCL 12242159990 No Longer Active Adriana Bender LPN Active AUGMENTIN 875-125 MG TAB 1 po BID x 10 days AMOXICILLIN- POT CLAVULANATE 49071405403 No Longer Active Adriana Bender LPN Active MODAFINIL 200 MG ORAL TABS Take 1/2 tab po in the am and 1/2 tab po at noon MODAFINIL 95887780010 Active Bertrand Patel DO Ac tive CYCLOBENZAPRINE HCL 10 MG TABS Take 1 tab TID PRN for muscle pain CYCLOBENZAPRINE HCL 98650136658 No Longer Active Bertrand Patel DO Ac tive TESSALON PERLES 100 MG CAP 1 tablet by mouth 3 times daily 07/07 BENZONATATE 26770805935 No Longer Active Bertrand Patel DO Ac tive NEBULIZER MISC use as directed NEBULIZERS 392536 67841 No Longer Active Bertrand Patel DO Active ALBUTEROL SULFATE 0.083 % NEBU SOLCammy one vial per nebul izer every 4-6 hours as needed ALBUTEROL SULFATE 35660619144 No Longer Active Bertrand Patel DO Active SYMBICORT 160-4.5 MCG/ACT AERO 2 puffs BID BUDESONIDE- FORMOTEROL FUMARATE 71035272117 No Longer Active Bertrand Patel DO Ac tive PREDNISONE 20 MG TAB take 3 tabs daily for 3 days , 2 tabs daily for 3 days, 1 tab daily for 3 days, 1/2 tab daily for 3 days P REDNISONE 94264684388 No Longer Active Silvia Arnold APRN Active AZITHROMYCIN 250 MG ORAL TABS Take 2 tabs po today then 1 ta b po daily AZITHROMYCIN 90412035203 No Longer Active Silvia Jorge leslye [employer] Active AUGMENTIN 875-125 MG TAB 1 po BID x 10 days AMOXICILLIN- POT CLAVULANATE 74845970803 No Longer Active Adriana Bender LPN Active CHEWABLE CALCIUM 500-200-40 MG-UNT-MCG ORAL CHEW 1 chew tab bid 201 11/03/03 CALCIUM-VITAMIN D-VITAMIN K 85830394570 Active Silvia Arnold APRN Active EQ COMPLETE MULTIVIT ADULT 50+ ORAL TABS 1 tab po bid MULTIPLE VITAMINS-MINERALS 24368321676 Active Silvia Arnold APRN Act jairo HYDROCODONE-ACETAMINOPHEN 7.5-325 MG TABS TAKE ONE TAB EVERY 6 HOURS BY MOUTH NEEDED FOR PAIN HYDROCODONE-ACETAMINOPHEN 63515407881 Acti ve Bertrand Patel DO Active LORTAB 7.5-500 MG TABS take one po Q6 hours HYDROCODONE-ACETAMINOPHEN No Longer Active Nirmal Robbins RN Active [facility] MELAT[facility] 5-10 MG CR-TABS Take one by mouth daily at bedtime MELATONIN-PYRIDOXINE 08454471887 No Longer Active Bertrand Patel DO Active VITAMIN E 200 UNIT CAPS 1 cap po qd VITAMIN E 316 15097771 No Longer Active Bertrand Patel DO Active B-12 1000 MCG CAPS 1 tab daily CYANOCOBALAMIN 31 649276214 No Longer Active Bertrand Patel DO Active METFORMIN HCL 500 MG TABS 1 bid METFORMIN HCL 93555478643 No Longer Active Bertrand Patel DO Active FUROSEMIDE 20 MG TABS 1 pill by mouth daily if needed for edema FUROSEMIDE 82784437513 No Longer Active Bertrand Patel DO Act jairo PRAVASTATIN SODIUM 20 MG TABS 1 tablet by mouth daily at bedtime PRAVASTATIN SODIUM 29842664277 No Longer Active Bertrand Patel DO Active AUGMENTIN 875-125 MG TABS 1 pill by mouth twice daily AMOXICILLIN-POT CLAVULANATE 54998224449 No Longer Active Yoli Mercado MD PhD Active LEVAQUIN 500 MG TABS 1 pill by mouth daily LEVO FLOXACIN 78924208568 No Longer Active Yoli Mercado MD PhD Active AMLODIPINE BESYLATE 5 MG TABS 1 tablet by mouth daily for bl ood pressure AMLODIPINE BESYLATE 50213167881 Active Dalryn Monzon Active MICARDIS 80 MG TABS 1 tablet daily for blood pressure TELMISARTAN 64072066404 Active Bertrand Patel DO Active MICARDIS HCT 80-12.5 MG TABS 1 qd TELMISARTA N-HCTZ 17389693937 No Longer Active Bertrand Patel DO Active CINNAMON ALPHA LIPOIC AC CMPLX CAPS by mouth twice a d ay in AM by mouth twice a day in PM ALPHA LIPOIC HNMS-DV-UHIVYNUI CAPS 824631 65332 No Longer Active Bertrand Patel DO Active AZITHROMYCIN 500 MG SOLR 1 po q day AZITHROMYCI N 93069120886 No Longer Active Bertrand Patel DO Active CYMBALTA 30 MG CPEP 1 cap by mouth daily DULOXE CATHI HCL 51901110681 No Longer Active Berrtand Patel DO Active CYMBALTA 60 MG CPEP 1 cap by mouth daily DULOXE CATHI HCL 81201982954 Active Keysha Jones MA Active WELLBUTRIN 75 MG TABS 2 times daily BUPROPION H CL 83887903335 No Longer Active Bertrand W Jorge DO Active PROAIR HFA 108 (90 BASE) MCG/ACT AERS take one to two puffs po Q4-6 hour prn cough and shortness of breath ALBUTEROL SULFATE 7595655972 2 Active Silvia Arnold [employer] Active AZITHROMYCIN 250 MG TABS take 2 po today then take 1 po days 2-5 AZITHROMYCIN 45360279917 No Longer Active Adolfo OSORIO Active PERMETHRIN 5 % CREA apply neck to toes tonight a nd then rinse off in morning. repeat at 7 days PERMETHRIN 95369264550 No Longer Active Adolfo OSORIO Active AMOXICILLIN 500 MG CAPS 2 po BID x 10 days AMOX ICILLIN 66499094922 No Longer Active Yoli Mercado MD PhD Active ALPRAZOLAM 0.5 MG TAB 1 tab by mouth tid ALPRAZOL AM 03310354184 Active Nitza Mullins SENIOR REPORT DEVELOPER Active INSUPEN ULTRAFIN 31G X 6 MM MISC USE DIRECTED 03/04 INSULIN PEN NEEDLE 06838032246 No Longer Active Bertrand Patel DO Active TRANSDERM-SCOP 1.5 MG PT72 1 patch applied behind ear q 3 day 20 04/13/28 SCOPOLAMINE BASE 32936064095 No Longer Active Bertrand Patel DO Active MACRODANTIN 100 MG CAPS one p.o. b.i.d. x2 weeks 03/04 NITROFURANTOIN MACROCRYSTAL 95265307302 No Longer Active Bertrand Patel DO Active MACRODANTIN 100 MG CAPS one p.o. b.i.d. x2 weeks 03/04 MACRODANTIN 100 MG CAPS 1681632 NITROFURANTOIN MACROCRYSTAL Inactive TRANSDERM-SCOP 1.5 MG PT72 [...] at 7 days PERMETHRIN 5 % CREA 233944 PERMETHRIN Inactive WELLBUTRIN 75 MG TABS 2 times daily WELLBUTRIN 75 MG TABS BUPROPION HCL Inactive CYMBALTA 30 MG CPEP 1 cap by mouth daily CYMBALTA 30 MG CPEP 226949 DULOXETINE HCL Inactive AZITHROMYCIN 500 MG SOLR 1 po q day ALTA THROMYCIN 500 MG SOLR 42164631386 AZITHROMYCIN Inactive CINNAMON ALPHA LIPOIC AC CMPLX CAPS by mouth twice a d ay in AM by mouth twice a day in PM CINNAMON ALPHA LIPOIC AC CMPLX CAPS ALPHA LIPOIC [id number] CAPS Inactive MICARDIS HCT 80-12.5 MG TABS 1 qd MICARDI S HCT 80-12.5 MG TABS 738641 TELMISARTAN-HCTZ Inactive PRAVASTATIN SODIUM 20 MG TABS 1 tablet by mouth daily at bedtime PRAVASTATIN SODIUM 20 MG TABS 217760 PRAVASTATIN SODIUM Inactive FUROSEMIDE 20 MG TABS 1 pill by mouth daily if needed for edema FUROSEMIDE 20 MG TABS 426630 FUROSEMIDE Inactive METFORMIN HCL 500 MG TABS 1 bid METFORMIN HCL 500 MG TABS 140477 METFORMIN HCL Inactive B-12 1000 MCG CAPS 1 tab daily B-12 1000 MCG CAP S CYANOCOBALAMIN Inactive VITAMIN E 200 UNIT CAPS 1 cap po qd VITAMIN E 2 00 UNIT CAPS 9648648 VITAMIN E Inactive [facility] MELATONIN 5-10 MG CR-TABS Take one by mouth daily at bedtime [facility] MELATONIN 5-10 MG CR-TABS MELATONIN-PYRIDOXI NE Inactive LORTAB 7.5-500 MG TABS take one po Q6 hours LORTAB 7.5-500 MG TABS HYDROCODONE-ACETAMINOPHEN Inactive AZITHROMYCIN 250 MG ORAL TABS Take 2 tabs po today then 1 ta b po daily AZITHROMYCIN 250 MG ORAL TABS 7109835 AZITHROMYCI N Inactive SYMBICORT 160-4.5 MCG/ACT AERO 2 puffs BID SYMBICORT 160- 4.5 MCG/ACT AERO BUDESONIDE-FORMOTEROL FUMARATE Inactive ALBUTEROL SULFATE 0.083 % NEBU SOLN one vial per nebul izer every 4-6 hours as needed ALBUTEROL SULFATE 0.083 % NEBU SOLN 44868 8 ALBUTEROL SULFATE Inactive NEBULIZER MISC use as directed NEBULIZER MISC NEBULIZERS Inactive TESSALON PERLES 100 MG CAP 1 tablet by mouth 3 times daily 07/07 TESSALON PERLES 100 MG CAP 977585 BENZONATATE Inact jairo CYCLOBENZAPRINE HCL 10 MG TABS Take 1 tab TID PRN for muscle pain CYCLOBENZAPRINE HCL 10 MG TABS 639650 CYCLOBENZAPRINE HCL Inactive AUGMENTIN 875-125 MG TAB 1 po BID x 10 days AUGMENTIN 875- 125 MG TAB 808784 AMOXICILLIN-POT CLAVULANATE Inactive BACTROBAN 2 % CREAM Apply to affected area BID for up to 10 days BACTROBAN 2 % CREAM 883818 MUPIROCIN CALCIUM Inactive AMOXICILLIN 500 MG CAPS 2 po BID x 10 days AMOXICILLIN 500 MG CAPS 052159 AMOXICILLIN Inactive AZITHROMYCIN 250 MG TABS take 2 po today then take 1 po days 2-5 AZITHROMYCIN 250 MG TABS 5361190 AZITHROMYCIN Inactiv e LEVAQUIN 500 MG TABS 1 pill by mouth daily LEVAQUIN 500 MG TABS 394648 LEVOFLOXACIN Inactive AUGMENTIN 875-125 MG TABS 1 pill by mouth twice daily AUGMENTIN 875-125 MG TABS 756119 AMOXICILLIN-POT CLAVULANATE Inacti ve AUGMENTIN 875-125 MG TAB 1 po BID x 10 days AUGMENTIN 875- 125 MG TAB 869918 AMOXICILLIN-POT CLAVULANATE Inactive PREDNISONE 20 MG TAB take 3 tabs daily for 3 days , 2 tabs daily for 3 days, 1 tab daily for 3 days, 1/2 tab daily for 3 days PREDNISONE 20 MG TAB 078185 PREDNISONE Inactive CIPRO 500 MG TAB 1 tablet by mouth twice daily CIPRO 500 MG TAB 450050 CIPROFLOXACIN HCL Inactive Vital Signs Date Name [...] 4.3-6.0 Encounters Code Encounter Date Provider Facility CPT-22639 Level 4 Est. Patient 12:31:54 CDT Bertrand marquez [facility] CPT-16236 Level 3 Est. Patient 11:27:00 MINING ENGINEER Ike Deluna MD [facility]-06097 Level 3 Est. Patient 08:50:57 MINING ENGINEER Dangelo BARAJAS [facility] CPT-95566 Level 3 Est. Patient 10:04:13 CDT Bertrand marquez [facility] [place]-73529 Level 4 Est. Patient 16:02:10 MINING ENGINEER Dangelo [employer] [facility] CPT-16491 Level 3 Est. Patient 13:04:54 MINING ENGINEER Dangelo [employer] [facility]-90217 Level 3 Est. Patient 12:56:37 CDT Bertrand marquez [facility] CPT-64637 Level 3 Est. Patient 19:12:03 CDT Yoli tolbert MD PhD [facility] CPT-42396 Level 3 Est. Patient 14:36:01 CDT Yoli tolbert MD [facility]-23961 Level 2 Est. Patient 08:00:22 CDT Jcarlos dc MD [facility]-01478 Level 3 Est. Patient 19:06:55 CDT Bertrand marquez [facility] CPT-05683 Level 3 Est. Patient 10:08:23 MINING ENGINEER Bertrand marquez [facility] [place]-06538 Level 3 Est. Patient 16:37:54 MINING ENGINEER Bertrand marquez [facility] CPT-75083 Level 3 Est. Patient 11:31:59 MINING ENGINEER Bertrand marquez [facility] CPT-35481 Level 3 Est. Patient 10:20:08 CDT Adolfo OSORIO [facility]-62320 Level 3 Est. Patient 13:45:20 CDT Sanket Ankit buckley [facility] CPT-99419 Level 3 Est. Patient 12:51:06 CDT Adolfo Monroyridge halljacklyn [facility] CPT-12298 Level 3 Est. Patient 11:22:51 MINING ENGINEER Yoli tolbert MD PhD [facility] CPT-71775 Level 3 Est. Patient 13:33:19 CDT Bertrand Sabillon ee DO [facility] Procedures Code Procedure Name Date Entry Date Standard Desc ription CPT-37659 Wound Culture - LAB USE ONLY 15:45:25 CDT 2 CPT-24815 Venipuncture Draw Fee 10:23:01 CDT CPT-J0696 Rocephin 1000 mg (Ceftriaxone) 16:20:30 MINING ENGINEER CPT-15465 Abx/Therapy Injection 16:20:29 MINING ENGINEER CPT-J0696 Rocephin 1gm Inj Solr 15:51:59 MINING ENGINEER CPT-59332 Chest 2V Frontal and Lat 15:20:28 MINING ENGINEER 07/22 CPT-21589 Breathing Tx 14:51:55 MINING ENGINEER CPT-88396 Breathing Tx 09:57:16 MINING ENGINEER CPT-53661 Knee comp 4/> V 11:58:06 MINING ENGINEER
--- OUTSIDE RECORDS SUMMARY | 2019-11-13 10:16 | XMS REPORT | Clinical Summary ---
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 Fatigue 780.79 Active Silvia [...] tablet by mouth twice daily CIPROFLOXACIN HCL 73470753451 No Longer Active Adriana Bender LPN Active AUGMENTIN 875-125 MG TAB 1 po BID x 10 days AMOXICILLIN- POT CLAVULANATE 54822532927 No Longer Active Adrinaa Bender LPN Active BACTROBAN 2 % CREAM Apply to affected area BID for up to 10 days 20 18/03/27 MUPIROCIN CALCIUM 36083976150 Active Silvia Arnold APRN Act jairo MODAFINIL 200 MG ORAL TABS Take 1/2 tab po in the am and 1/2 tab po at noon MODAFINIL 10681149481 Active Silvia Arnold APRN Active CYCLOBENZAPRINE HCL 10 MG TABS Take 1 tab TID PRN for muscle pain CYCLOBENZAPRINE HCL 83433645444 No Longer Active Bertrand Patel DO Ac tive TESSALON PERLES 100 MG CAP 1 tablet by mouth 3 times daily 07/07 BENZONATATE 49234463416 No Longer Active Bertrand Patel DO Ac tive NEBULIZER MISC use as directed NEBULIZERS 307765 47009 No Longer Active Bertrand Patel DO Active ALBUTEROL SULFATE 0.083 % NEBU SOLN one vial per nebul izer every 4-6 hours as needed ALBUTEROL SULFATE 71661121736 No Longer Active Bertrand Patel DO Active SYMBICORT 160-4.5 MCG/ACT AERO 2 puffs BID BUDESONIDE- FORMOTEROL FUMARATE 15089137919 No Longer Active Bertrand Patel DO Ac tive PREDNISONE 20 MG TAB take 3 tabs daily for 3 days , 2 tabs daily for 3 days, 1 tab daily for 3 days, 1/2 tab daily for 3 days P REDNISONE 49841103471 No Longer Active Silvia Arnold APRN Active AZITHROMYCIN 250 MG ORAL TABS Take 2 tabs po today then 1 ta b po daily AZITHROMYCIN 35719673820 No Longer Active Silvia gavin APRN Active AUGMENTIN 875-125 MG TAB 1 po BID x 10 days AMOXICILLIN- POT CLAVULANATE 64901353430 No Longer Active Adriana Bender LPN Active CHEWABLE CALCIUM 500-200-40 MG-UNT-MCG ORAL CHEW 1 chew tab bid 201 11/03/03 CALCIUM-VITAMIN D-VITAMIN K 70969440704 Active Silvia Arnold APRN Active EQ COMPLETE MULTIVIT ADULT 50+ ORAL TABS 1 tab po bid MULTIPLE VITAMINS-MINERALS 24819753598 Active Silvia Arnold APRN Act jairo HYDROCODONE-ACETAMINOPHEN 7.5-325 MG TABS TAKE ONE TAB EVERY 6 HOURS BY MOUTH NEEDED FOR PAIN HYDROCODONE-ACETAMINOPHEN 15754870614 Acti ve Lizy العلي Active LORTAB 7.5-500 MG TABS take one po Q6 hours HYDROCODONE-ACETAMINOPHEN No Longer Active Nirmal Robbins RN Active [facility] MELATONIN 5-10 MG CR-TABS Take one by mouth daily at bedtime MELATONIN-PYRIDOXINE 81643595811 No Longer Active Bertrand Patel DO Active VITAMIN E 200 UNIT CAPS 1 cap po qd VITAMIN E 316 04632238 No Longer Active Bertrand Patel DO Active B-12 1000 MCG CAPS 1 tab daily CYANOCOBALAMIN 31 755611044 No Longer Active Bertrand Patel DO Active METFORMIN HCL 500 MG TABS 1 bid METFORMIN HCL 26151485023 No Longer Active Bertrand Patel DO Active FUROSEMIDE 20 MG TABS 1 pill by mouth daily if needed for edema FUROSEMIDE 10037071427 No Longer Active Bertrand Patel DO Act jairo PRAVASTATIN SODIUM 20 MG TABS 1 tablet by mouth daily at bedtime PRAVASTATIN SODIUM 27099353514 No Longer Active Bertrand Patel DO Active AUGMENTIN 875-125 MG TABS 1 pill by mouth twice daily AMOXICILLIN-POT CLAVULANATE 50939618614 No Longer Active Yoli Mercado MD PhD Active LEVAQUIN 500 MG TABS 1 pill by mouth daily LEVO FLOXACIN 99595180084 No Longer Active Yoli Mercado MD PhD Active AMLODIPINE BESYLATE 5 MG TABS 1 tablet by mouth daily for bl ood pressure AMLODIPINE BESYLATE 65644195477 Active Keysha Jones MA Active MICARDIS 80 MG TABS 1 tablet daily for blood pressure TELMISARTAN 81164387859 Active Keysha Jones MA Active MICARDIS HCT 80-12.5 MG TABS 1 qd TELMISARTA N-HCTZ 12684030905 No Longer Active Bertrand Patel DO Active CINNAMON ALPHA LIPOIC AC CMPLX CAPS by mouth twice a d ay in AM by mouth twice a day in PM ALPHA LIPOIC [id number] CAPS 980714 20125 No Longer Active Bertrand Patel DO Active AZITHROMYCIN 500 MG SOLR 1 po q day AZITHROMYCI N 15296588213 No Longer Active Bertrand Patel DO Active CYMBALTA 30 MG CPEP 1 cap by mouth daily DULOXE CATHI HCL 08096860627 No Longer Active Bertrand Patel DO Active CYMBALTA 60 MG CPEP 1 cap by mouth daily DULOXE CATHI HCL 60104409266 Active Keysha Jones MA Active WELLBUTRIN 75 MG TABS 2 times daily BUPROPION H CL 08605003867 No Longer Active Bertrand Patel DO Active PROAIR HFA 108 (90 BASE) MCG/ACT AERS take one to two puffs po Q4-6 hour prn cough and shortness of breath ALBUTEROL SULFATE 6931554344 2 Active Silvia Arnold MANAGER SUPPORT SERVICES Active AZITHROMYCIN 250 MG TABS take 2 po today then take 1 po days 2-5 AZITHROMYCIN 47952189912 No Longer Active Adolfo OSORIO Active PERMETHRIN 5 % CREA apply neck to toes tonight a nd then rinse off in morning. repeat at 7 days PERMETHRIN 39270368002 No Longer Active Adolfo OSORIO Active AMOXICILLIN 500 MG CAPS 2 po BID x 10 days AMOX ICILLIN 48287289921 No Longer Active Yoli Mercado MD PhD Active ALPRAZOLAM 0.5 MG TAB 1 tab by mouth tid ALPRAZOL AM 68911898386 Active Nitza Mullins RPT,RMA Active INSUPEN ULTRAFIN 31G X 6 MM MISC USE DIRECTED 03/04 INSULIN PEN NEEDLE 11208229767 No Longer Active Bertrand Patel DO Active TRANSDERM-SCOP 1.5 MG PT72 1 patch applied behind ear q 3 day 20 04/13/28 SCOPOLAMINE BASE 16704884378 No Longer Active Bertrand Patel DO Active MACRODANTIN 100 MG CAPS one p.o. b.i.d. x2 weeks 03/04 NITROFURANTOIN MACROCRYSTAL 07766218773 No Longer Active Bertrand Patel DO Active MACRODANTIN 100 MG CAPS one p.o. b.i.d. x2 weeks 03/04 MACRODANTIN 100 MG CAPS 5087420 NITROFURANTOIN MACROCRYSTAL Inactive TRANSDERM-SCOP 1.5 MG PT72 [...] at 7 days PERMETHRIN 5 % CREA 957254 PERMETHRIN Inactive WELLBUTRIN 75 MG TABS 2 times daily WELLBUTRIN 75 MG TABS BUPROPION HCL Inactive CYMBALTA 30 MG CPEP 1 cap by mouth daily CYMBALTA 30 MG CPEP 685033 DULOXETINE HCL Inactive AZITHROMYCIN 500 MG SOLR 1 po q day ALTA THROMYCIN 500 MG SOLR 24062320100 AZITHROMYCIN Inactive CINNAMON ALPHA LIPOIC AC CMPLX CAPS by mouth twice a d ay in AM by mouth twice a day in PM CINNAMON ALPHA LIPOIC AC CMPLX CAPS ALPHA LIPOIC UAWC-QY-WHAMALIR CAPS Inactive MICARDIS HCT 80-12.5 MG TABS 1 qd MICARDI S HCT 80-12.5 MG TABS 512254 TELMISARTAN-HCTZ Inactive PRAVASTATIN SODIUM 20 MG TABS 1 tablet by mouth daily at bedtime PRAVASTATIN SODIUM 20 MG TABS 252993 PRAVASTATIN SODIUM Inactive FUROSEMIDE 20 MG TABS 1 pill by mouth daily if needed for edema FUROSEMIDE 20 MG TABS 692763 FUROSEMIDE Inactive METFORMIN HCL 500 MG TABS 1 bid METFORMIN HCL 500 MG TABS 078187 METFORMIN HCL Inactive B-12 1000 MCG CAPS 1 tab daily B-12 1000 MCG CAP S CYANOCOBALAMIN Inactive VITAMIN E 200 UNIT CAPS 1 cap po qd VITAMIN E 2 00 UNIT CAPS 2556541 VITAMIN E Inactive [facility] MELATONIN 5-10 MG CR-TABS Take one by mouth daily at bedtime [facility] MELATONIN 5-10 MG CR-TABS MELATONIN-PYRIDOXI NE Inactive LORTAB 7.5-500 MG TABS take one po Q6 hours LORTAB 7.5-500 MG TABS HYDROCODONE-ACETAMINOPHEN Inactive AZITHROMYCIN 250 MG ORAL TABS Take 2 tabs po today then 1 ta b po daily AZITHROMYCIN 250 MG ORAL TABS 8784644 AZITHROMYCI N Inactive SYMBICORT 160-4.5 MCG/ACT AERO 2 puffs BID SYMBICORT 160- 4.5 MCG/ACT AERO BUDESONIDE-FORMOTEROL FUMARATE Inactive ALBUTEROL SULFATE 0.083 % NEBU SOLN one vial per nebul izer every 4-6 hours as needed ALBUTEROL SULFATE 0.083 % NEBU SOLN 65806 8 ALBUTEROL SULFATE Inactive NEBULIZER MISC use as directed NEBULIZER MISC NEBULIZERS Inactive TESSALON PERLES 100 MG CAP 1 tablet by mouth 3 times daily 07/07 TESSALON PERLES 100 MG CAP 478582 BENZONATATE Inact jairo CYCLOBENZAPRINE HCL 10 MG TABS Take 1 tab TID PRN for muscle pain CYCLOBENZAPRINE HCL 10 MG TABS 136162 CYCLOBENZAPRINE HCL Inactive AUGMENTIN 875-125 MG TAB 1 po BID x 10 days AUGMENTIN 875- 125 MG TAB 451277 AMOXICILLIN-POT CLAVULANATE Inactive AMOXICILLIN 500 MG CAPS 2 po BID x 10 days AMOXICILLIN 500 MG CAPS 159191 AMOXICILLIN Inactive AZITHROMYCIN 250 MG TABS take 2 po today then take 1 po days 2-5 AZITHROMYCIN 250 MG TABS 8880205 AZITHROMYCIN Inactiv e LEVAQUIN 500 MG TABS 1 pill by mouth daily LEVAQUIN 500 MG TABS 921596 LEVOFLOXACIN Inactive AUGMENTIN 875-125 MG TABS 1 pill by mouth twice daily AUGMENTIN 875-125 MG TABS 919818 AMOXICILLIN-POT CLAVULANATE Inacti ve AUGMENTIN 875-125 MG TAB 1 po BID x 10 days AUGMENTIN 875- 125 MG TAB 443652 AMOXICILLIN-POT CLAVULANATE Inactive PREDNISONE 20 MG TAB take 3 tabs daily for 3 days , 2 tabs daily for 3 days, 1 tab daily for 3 days, 1/2 tab daily for 3 days PREDNISONE 20 MG TAB 331759 PREDNISONE Inactive CIPRO 500 MG TAB 1 tablet by mouth twice daily CIPRO 500 MG TAB 586122 CIPROFLOXACIN HCL Inactive Vital Signs Date Name [...] 5.8 % 4.3-6.0 cholesterol, serum 200 mg/dL 953-667 7581/07/22 triglyceride, serum, fasting 56 mg/dL 30-200 HDL cholesterol, serum 80 mg/dL 32-96 LDL cholesterol, serum 109 mg/dL 0-130 albumin/creatinine ratio, urine < 30 mg/g mg/g{creat} 0-2 9 TSH 1.16 m[iU]/mL 0.36-3.74 sodium, serum 142 mmol/L 411-724 2101/07/22 carbon dioxide, venous blood 33.1 mmol/L 21.0-32 [...] Negative;Positive Encounters Code Encounter Date Provider Facility CPT-86267 Level 3 Est. Patient 08:50:57 USER SUPPORT ANALYST Silvia And dmitriy [facility] CPT-62733 Level 3 Est. Patient 10:04:13 CDT Bertrand marquez [facility] CPT-17464 Level 4 Est. Patient 16:02:10 USER SUPPORT ANALYST Silvia And dmitriy [facility] CPT-07185 Level 3 Est. Patient 13:04:54 USER SUPPORT ANALYST Dangelo [facility] CPT-32633 Level 3 Est. Patient 12:56:37 CDT Bertrand marquez [facility] CPT-39453 Level 3 Est. Patient 19:12:03 CDT Yoli tolbert MD PhD [facility] CPT-73337 Level 3 Est. Patient 14:36:01 CDT Yoli tolbert MD PhD [facility] CPT-07696 Level 2 Est. Patient 08:00:22 CDT Jcarlos dc MD [facility] CPT-56597 Level 3 Est. Patient 19:06:55 CDT Bertrand marquez [facility] CPT-22611 Level 3 Est. Patient 10:08:23 USER SUPPORT ANALYST Bertrand marquez [facility] CPT-05031 Level 3 Est. Patient 16:37:54 USER SUPPORT ANALYST Bertrand marquez [facility] CPT-85465 Level 3 Est. Patient 11:31:59 USER SUPPORT ANALYST Bertrand marquez [facility] CPT-62286 Level 3 Est. Patient 10:20:08 CDT Adolfo villasenor [facility] CPT-32394 Level 3 Est. Patient 13:45:20 CDT Sanket buckley [facility] CPT-65092 Level 3 Est. Patient 12:51:06 CDT Adolfo villasenor [facility] CPT-88812 Level 3 Est. Patient 11:22:51 USER SUPPORT ANALYST Yoli tolbert MD [facility] CPT-14362 Level 3 Est. Patient 13:33:19 CDT Bertrand marquez [facility] Procedures Code Procedure Name Date Entry Date Standard Desc ription CPT-23475 Wound Culture - LAB USE ONLY 15:45:25 CDT 2 CPT-44002 Venipuncture Draw Fee 10:23:01 CDT CPT-J0696 Rocephin 1000 mg (Ceftriaxone) 16:20:30 USER SUPPORT ANALYST CPT-02077 Abx/Therapy Injection 16:20:29 USER SUPPORT ANALYST CPT-J0696 Rocephin 1gm Inj Solr 15:51:59 USER SUPPORT ANALYST CPT-81537 Chest 2V Frontal and Lat 15:20:28 USER SUPPORT ANALYST 07/22 CPT-12814 Breathing Tx 14:51:55 USER SUPPORT ANALYST CPT-64021 Breathing Tx 09:57:16 USER SUPPORT ANALYST CPT-91985 Knee comp 4/> V 11:58:06 USER SUPPORT ANALYST
--- OUTSIDE RECORDS SUMMARY | 2019-11-13 10:16 | XMS REPORT | Clinical Summary ---
Author Author Admin, Enrique Adamson Organization [facility] Address Unknown Phone Unavailable Allergies, [...] Cough SINUSITIS, ACUTE 461.9 Active Silvia PARISI over hauler helper sinusitis, unspecified Fatigue 780.79 Active Silvia Arnold [...] morning and noon for narcole psy MODAFINIL 89403828025 Active Bertrand Patel DO Active CYCLOBENZAPRINE HCL 10 MG TABS Take 1 tab TID PRN for muscle pain CYCLOBENZAPRINE HCL 50622863300 No Longer Active Bertrand Patel DO Ac tive TESSALON PERLES 100 MG CAP 1 tablet by mouth 3 times daily 07/07 BENZONATATE 73763701961 No Longer Active Bertrand Patel DO Ac tive NEBULIZER MISC use as directed NEBULIZERS 439440 48920 No Longer Active Bertrand Patel DO Active ALBUTEROL SULFATE 0.083 % NEBU SOLN one vial per nebul izer every 4-6 hours as needed ALBUTEROL SULFATE 38053871316 No Longer Active Bertrand Patel DO Active SYMBICORT 160-4.5 MCG/ACT AERO 2 puffs BID BUDESONIDE- FORMOTEROL FUMARATE 33098836948 No Longer Active Bertrand Patel DO Ac tive PREDNISONE 20 MG TAB take 3 tabs daily for 3 days , 2 tabs daily for 3 days, 1 tab daily for 3 days, 1/2 tab daily for 3 days P REDNISONE 22279570686 No Longer Active Silvia Arnold APRN Active AZITHROMYCIN 250 MG ORAL TABS Take 2 tabs po today then 1 ta b po daily AZITHROMYCIN 02743424074 No Longer Active Silvia Jorge gavin ULTRASOUND SONOGRAPHER Active AUGMENTIN 875-125 MG TAB 1 po BID x 10 days AMOXICILLIN- POT CLAVULANATE 51671811128 No Longer Active Adriana Bender LPN Active CHEWABLE CALCIUM 500-200-40 MG-UNT-MCG ORAL CHEW 1 chew tab bid 201 11/03/03 CALCIUM-VITAMIN D-VITAMIN K 60219506254 Active Silvia Arnold APRN Active EQ COMPLETE MULTIVIT ADULT 50+ ORAL TABS 1 tab po bid MULTIPLE VITAMINS-MINERALS 54601164253 Active Silvia Arnold APRN Act jairo HYDROCODONE-ACETAMINOPHEN 7.5-325 MG TABS TAKE ONE TAB EVERY 6 HOURS BY MOUTH NEEDED FOR PAIN HYDROCODONE-ACETAMINOPHEN 76053844118 Acti ve Bertrand Patel DO Active LORTAB 7.5-500 MG TABS take one po Q6 hours HYDROCODONE-ACETAMINOPHEN No Longer Active Nirmal Robbins RN Active [facility] MELATONIN 5-10 MG CR-TABS Take one by mouth daily at bedtime MELATONIN-PYRIDOXINE 89132693174 No Longer Active Bertrand Patel DO Active VITAMIN E 200 UNIT CAPS 1 cap po qd VITAMIN E 316 33966782 No Longer Active Bertrand Patel DO Active B-12 1000 MCG CAPS 1 tab daily CYANOCOBALAMIN 31 001574348 No Longer Active Bertrand Patel DO Active METFORMIN HCL 500 MG TABS 1 bid METFORMIN HCL 51095341273 No Longer Active Bertrand Patel DO Active FUROSEMIDE 20 MG TABS 1 pill by mouth daily if needed for edema FUROSEMIDE 05898116300 No Longer Active Bertrand Patel DO Act jairo PRAVASTATIN SODIUM 20 MG TABS 1 tablet by mouth daily at bedtime PRAVASTATIN SODIUM 69183599081 No Longer Active Bertrand Patel DO Active AUGMENTIN 875-125 MG TABS 1 pill by mouth twice daily AMOXICILLIN-POT CLAVULANATE 49730086407 No Longer Active Yoli Mercado MD PhD Active LEVAQUIN 500 MG TABS 1 pill by mouth daily LEVO FLOXACIN 71899313382 No Longer Active Yoli Mercado MD PhD Active AMLODIPINE BESYLATE 5 MG TABS 1 tablet by mouth daily for bl ood pressure AMLODIPINE BESYLATE 81975405153 Active Nitza Dorman PT,RMA Active MICARDIS 80 MG TABS 1 tablet daily for blood pressure TELMISARTAN 64686624857 Active Nitza Mullins RPT,RMA Active MICARDIS HCT 80-12.5 MG TABS 1 qd TELMISARTA N-HCTZ 76214530752 No Longer Active Bertrand Patel DO Active CINNAMON ALPHA LIPOIC AC CMPLX CAPS by mouth twice a d ay in AM by mouth twice a day in PM ALPHA LIPOIC [id number] CAPS 091230 76748 No Longer Active Bertrand Patel DO Active AZITHROMYCIN 500 MG SOLR 1 po q day AZITHROMYCI N 37912238175 No Longer Active Bertrand Patel DO Active CYMBALTA 30 MG CPEP 1 cap by mouth daily DULOXE CATHI HCL 98562419942 No Longer Active Bertrand Patel DO Active CYMBALTA 60 MG CPEP 1 cap by mouth daily DULOXE CATHI HCL 33660102984 Active Nitza Mullins RPT,RMA Active WELLBUTRIN 75 MG TABS 2 times daily BUPROPION H CL 44843444930 No Longer Active Bertrand Patel DO Active PROAIR HFA 108 (90 BASE) MCG/ACT AERS take one to two puffs po Q4-6 hour prn cough and shortness of breath ALBUTEROL SULFATE 8002779887 2 Active Silvia Arnold ULTRASOUND SONOGRAPHER Active AZITHROMYCIN 250 MG TABS take 2 po today then take 1 po days 2-5 AZITHROMYCIN 70004229003 No Longer Active Adolfo OSORIO Active PERMETHRIN 5 % CREA apply neck to toes tonight a nd then rinse off in morning. repeat at 7 days PERMETHRIN 48193129329 No Longer Active Adolfo OSORIO Active AMOXICILLIN 500 MG CAPS 2 po BID x 10 days AMOX ICILLIN 22188794428 No Longer Active Yoli Mercado MD PhD Active ALPRAZOLAM 0.5 MG TAB 1 tab by mouth tid ALPRAZOL AM 25453167434 Active Nitza Mullins RPT,RMA Active INSUPEN ULTRAFIN 31G X 6 MM MISC USE DIRECTED 03/04 INSULIN PEN NEEDLE 38982152693 No Longer Active Bertrand Patel DO Active TRANSDERM-SCOP 1.5 MG PT72 1 patch applied behind ear q 3 day 20 04/13/28 SCOPOLAMINE BASE 56638475794 No Longer Active Bertrand Patel DO Active MACRODANTIN 100 MG CAPS one p.o. b.i.d. x2 weeks 03/04 NITROFURANTOIN MACROCRYSTAL 00618782375 No Longer Active Bertrand Patel DO Active MACRODANTIN 100 MG CAPS one p.o. b.i.d. x2 weeks 03/04 MACRODANTIN 100 MG CAPS 0100693 NITROFURANTOIN MACROCRYSTAL Inactive TRANSDERM-SCOP 1.5 MG PT72 [...] at 7 days PERMETHRIN 5 % CREA 520435 PERMETHRIN Inactive WELLBUTRIN 75 MG TABS 2 times daily WELLBUTRIN 75 MG TABS BUPROPION HCL Inactive CYMBALTA 30 MG CPEP 1 cap by mouth daily CYMBALTA 30 MG CPEP 644659 DULOXETINE HCL Inactive AZITHROMYCIN 500 MG SOLR 1 po q day ALTA THROMYCIN 500 MG SOLR 17296654833 AZITHROMYCIN Inactive CINNAMON ALPHA LIPOIC AC CMPLX CAPS by mouth twice a d ay in AM by mouth twice a day in PM CINNAMON ALPHA LIPOIC AC CMPLX CAPS ALPHA LIPOIC [id number] CAPS Inactive MICARDIS HCT 80-12.5 MG TABS 1 qd MICARDI S HCT 80-12.5 MG TABS 078387 TELMISARTAN-HCTZ Inactive PRAVASTATIN SODIUM 20 MG TABS 1 tablet by mouth daily at bedtime PRAVASTATIN SODIUM 20 MG TABS 866221 PRAVASTATIN SODIUM Inactive FUROSEMIDE 20 MG TABS 1 pill by mouth daily if needed for edema FUROSEMIDE 20 MG TABS 920456 FUROSEMIDE Inactive METFORMIN HCL 500 MG TABS 1 bid METFORMIN HCL 500 MG TABS 165569 METFORMIN HCL Inactive B-12 1000 MCG CAPS 1 tab daily B-12 1000 MCG CAP S CYANOCOBALAMIN Inactive VITAMIN E 200 UNIT CAPS 1 cap po qd VITAMIN E 2 00 UNIT CAPS 8823339 VITAMIN E Inactive [facility] MELATONIN 5-10 MG CR-TABS Take one by mouth daily at bedtime [facility] MELATONIN 5-10 MG CR-TABS MELATONIN-PYRIDOXI NE Inactive LORTAB 7.5-500 MG TABS take one po Q6 hours LORTAB 7.5-500 MG TABS HYDROCODONE-ACETAMINOPHEN Inactive AZITHROMYCIN 250 MG ORAL TABS Take 2 tabs po today then 1 ta b po daily AZITHROMYCIN 250 MG ORAL TABS 1345995 AZITHROMYCI N Inactive SYMBICORT 160-4.5 MCG/ACT AERO 2 puffs BID SYMBICORT 160- 4.5 MCG/ACT AERO BUDESONIDE-FORMOTEROL FUMARATE Inactive ALBUTEROL SULFATE 0.083 % NEBU SOLN one vial per nebul izer every 4-6 hours as needed ALBUTEROL SULFATE 0.083 % NEBU SOLN 67041 8 ALBUTEROL SULFATE Inactive NEBULIZER MISC use as directed NEBULIZER MISC NEBULIZERS Inactive TESSALON PERLES 100 MG CAP 1 tablet by mouth 3 times daily 07/07 TESSALON PERLES 100 MG CAP 044701 BENZONATATE Inact jairo CYCLOBENZAPRINE HCL 10 MG TABS Take 1 tab TID PRN for muscle pain CYCLOBENZAPRINE HCL 10 MG TABS 786908 CYCLOBENZAPRINE HCL Inactive AMOXICILLIN 500 MG CAPS 2 po BID x 10 days AMOXICILLIN 500 MG CAPS 942555 AMOXICILLIN Inactive AZITHROMYCIN 250 MG TABS take 2 po today then take 1 po days 2-5 AZITHROMYCIN 250 MG TABS 6829552 AZITHROMYCIN Inactiv e LEVAQUIN 500 MG TABS 1 pill by mouth daily LEVAQUIN 500 MG TABS 201032 LEVOFLOXACIN Inactive AUGMENTIN 875-125 MG TABS 1 pill by mouth twice daily AUGMENTIN 875-125 MG TABS 327820 AMOXICILLIN-POT CLAVULANATE Inacti ve AUGMENTIN 875-125 MG TAB 1 po BID x 10 days AUGMENTIN 875- 125 MG TAB 496960 AMOXICILLIN-POT CLAVULANATE Inactive PREDNISONE 20 MG TAB take 3 tabs daily for 3 days , 2 tabs daily for 3 days, 1 tab daily for 3 days, 1/2 tab daily for 3 days PREDNISONE 20 MG TAB 311853 PREDNISONE Inactive Vital Signs Date Name Value [...] 5.8 % 4.3-6.0 cholesterol, serum 200 mg/dL 988-792 2117/07/22 triglyceride, serum, fasting 56 mg/dL 30-200 HDL cholesterol, serum 80 mg/dL 32-96 LDL cholesterol, serum 109 mg/dL 0-130 albumin/creatinine ratio, urine < 30 mg/g mg/g{creat} 0-2 9 TSH 1.16 m[iU]/mL 0.36-3.74 sodium, serum 142 mmol/L 914-827 0013/07/22 carbon dioxide, venous blood 33.1 mmol/L 21.0-32 [...] Negative;Positive Encounters Code Encounter Date Provider Facility CPT-33134 Level 3 Est. Patient 10:04:13 CDT Bertrand marquez [facility] CPT-34659 Level 4 Est. Patient 16:02:10 PROPOSAL MANAGER WRITER Dangelo ULTRASOUND SONOGRAPHER [facility] CPT-33516 Level 3 Est. Patient 13:04:54 PROPOSAL MANAGER WRITER Dangelo ULTRASOUND SONOGRAPHER [facility] CPT-81409 Level 3 Est. Patient 12:56:37 CDT Bertrand marquez DO [facility] CPT-89696 Level 3 Est. Patient 19:12:03 CDT Yoli tolbert MD PhD [facility] CPT-35731 Level 3 Est. Patient 14:36:01 CDT Yoli tolbert MD PhD [facility] CPT-65125 Level 2 Est. Patient 08:00:22 CDT Jcarlos dc MD [facility] CPT-34400 Level 3 Est. Patient 19:06:55 CDT Bertrand marquez [facility] CPT-47342 Level 3 Est. Patient 10:08:23 PROPOSAL MANAGER WRITER Bertrand marquez [facility] CPT-44940 Level 3 Est. Patient 16:37:54 PROPOSAL MANAGER WRITER Bertrand marquez [facility] CPT-55853 Level 3 Est. Patient 11:31:59 PROPOSAL MANAGER WRITER Bertrand marquez [facility] CPT-40679 Level 3 Est. Patient 10:20:08 CDT Adolfo villasenor [facility] CPT-79041 Level 3 Est. Patient 13:45:20 CDT Sanket buckley [facility] CPT-07857 Level 3 Est. Patient 12:51:06 CDT Adolfo villasenor [facility] CPT-17290 Level 3 Est. Patient 11:22:51 PROPOSAL MANAGER WRITER Yoli tolbert MD PhD [facility] CPT-32287 Level 3 Est. Patient 13:33:19 CDT Bertrand marquez [facility] Procedures Code Procedure Name Date Entry Date Standard Desc ription CPT-07033 Venipuncture Draw Fee 10:23:01 CDT CPT-J0696 Rocephin 1000 mg (Ceftriaxone) 16:20:30 PROPOSAL MANAGER WRITER CPT-98814 Abx/Therapy Injection 16:20:29 PROPOSAL MANAGER WRITER CPT-J0696 Rocephin 1gm Inj Solr 15:51:59 PROPOSAL MANAGER WRITER CPT-34000 Chest 2V Frontal and Lat 15:20:28 PROPOSAL MANAGER WRITER 07/22 CPT-61918 Breathing Tx 14:51:55 PROPOSAL MANAGER WRITER CPT-59362 Breathing Tx 09:57:16 PROPOSAL MANAGER WRITER CPT-31898 Knee comp 4/> V 11:58:06 PROPOSAL MANAGER WRITER
--- OUTSIDE RECORDS SUMMARY | 2019-11-13 10:16 | XMS REPORT | Clinical Summary ---
Author Author Admin, Enrique Adamson Organization [employer] Address Unknown Phone Unavailable Allergies, Adverse Reactions, [...] day as needed for c ough BENZONATATE 58808792085 Active Ike Deluna MD Acti ve ZITHROMAX Z-MARTIN 250 MG TABS 2 today and then 1 daily for 4 days 201 12/01/06 AZITHROMYCIN 97496037972 Active Ike Deluna MD Active ADDERALL 10 MG ORAL TABS 1 tab twice daily AMPHETAMINE-DEXTROAMPHETAMINE 36852387684 Active Ike Deluna MD Active BACTROBAN 2 % CREAM Apply to affected area BID for up to 10 days MUPIROCIN CALCIUM 41997934039 No Longer Active Ike Deluna MD Active CIPRO 500 MG TAB 1 tablet by mouth twice daily CIPROFLOXACIN HCL 03503930712 No Longer Active Adriana Bender LPN Active AUGMENTIN 875-125 MG TAB 1 po BID x 10 days AMOXICILLIN- POT CLAVULANATE 43773024224 No Longer Active Adriana Bender LPN Active MODAFINIL 200 MG ORAL TABS Take 1/2 tab po in the am and 1/2 tab po at noon MODAFINIL 76244595910 Active Darlyn vega CYCLOBENZAPRINE HCL 10 MG TABS Take 1 tab TID PRN for muscle pain CYCLOBENZAPRINE HCL 92374447614 No Longer Active Bertrand Patel DO Ac tive TESSALON PERLES 100 MG CAP 1 tablet by mouth 3 times daily 07/07 BENZONATATE 70304259994 No Longer Active Bertrand Patel DO Ac tive NEBULIZER MISC use as directed NEBULIZERS 876767 00940 No Longer Active Bertrand Patel DO Active ALBUTEROL SULFATE 0.083 % NEBU SOLKelvin one vial per nebul izer every 4-6 hours as needed ALBUTEROL SULFATE 32118558457 No Longer Active Bertrand Patel DO Active SYMBICORT 160-4.5 MCG/ACT AERO 2 puffs BID BUDESONIDE- FORMOTEROL FUMARATE 52200659202 No Longer Active Bertrand Patel DO Ac tive PREDNISONE 20 MG TAB take 3 tabs daily for 3 days , 2 tabs daily for 3 days, 1 tab daily for 3 days, 1/2 tab daily for 3 days P REDNISONE 34041358017 No Longer Active Silvia Arnold APRN Active AZITHROMYCIN 250 MG ORAL TABS Take 2 tabs po today then 1 ta b po daily AZITHROMYCIN 78826357044 No Longer Active Silvia gavin WELL SHOOTER Active AUGMENTIN 875-125 MG TAB 1 po BID x 10 days AMOXICILLIN- POT CLAVULANATE 81863303105 No Longer Active Adriana Bender LPN Active CHEWABLE CALCIUM 500-200-40 MG-UNT-MCG ORAL CHEW 1 chew tab bid 201 11/03/03 CALCIUM-VITAMIN D-VITAMIN K 15794444308 Active Silvia Arnold APRN Active EQ COMPLETE MULTIVIT ADULT 50+ ORAL TABS 1 tab po bid MULTIPLE VITAMINS-MINERALS 55588249873 Active Silvia Arnold APRN Act jairo HYDROCODONE-ACETAMINOPHEN 7.5-325 MG TABS TAKE ONE TAB EVERY 6 HOURS BY MOUTH NEEDED FOR PAIN HYDROCODONE-ACETAMINOPHEN 02206391106 Acti raheel العلي Active LORTAB 7.5-500 MG TABS take one po Q6 hours HYDROCODONE-ACETAMINOPHEN No Longer Active Nirmal Robbins RN Active [facility] MELATONIN 5-10 MG CR-TABS Take one by mouth daily at bedtime MELATONIN-PYRIDOXINE 53877310854 No Longer Active Bertrand Patel DO Active VITAMIN E 200 UNIT CAPS 1 cap po qd VITAMIN E 316 71400618 No Longer Active Bertrand Patel DO Active B-12 1000 MCG CAPS 1 tab daily CYANOCOBALAMIN 31 411067070 No Longer Active Bertrand Patel DO Active METFORMIN HCL 500 MG TABS 1 bid METFORMIN HCL 38514001415 No Longer Active Bertrand Patel DO Active FUROSEMIDE 20 MG TABS 1 pill by mouth daily if needed for edema FUROSEMIDE 89343970585 No Longer Active Bertrand Patel DO Act jairo PRAVASTATIN SODIUM 20 MG TABS 1 tablet by mouth daily at bedtime PRAVASTATIN SODIUM 09282152882 No Longer Active Bertrand Patel DO Active AUGMENTIN 875-125 MG TABS 1 pill by mouth twice daily AMOXICILLIN-POT CLAVULANATE 94761295868 No Longer Active Yoli Mercado MD PhD Active LEVAQUIN 500 MG TABS 1 pill by mouth daily LEVO FLOXACIN 60157599214 No Longer Active Yoli Mercado MD PhD Active AMLODIPINE BESYLATE 5 MG TABS 1 tablet by mouth daily for bl ood pressure AMLODIPINE BESYLATE 95049523971 Active Darlyn Mckinnonmerman Active MICARDIS 80 MG TABS 1 tablet daily for blood pressure TELMISARTAN 39373950445 Active Darlyn Monzon Active MICARDIS HCT 80-12.5 MG TABS 1 qd TELMISARTA N-HCTZ 82964355063 No Longer Active Bertrand Patel DO Active CINNAMON ALPHA LIPOIC AC CMPLX CAPS by mouth twice a d ay in AM by mouth twice a day in PM ALPHA LIPOIC [id number] CAPS 504094 12357 No Longer Active Bertrand Patel DO Active AZITHROMYCIN 500 MG SOLR 1 po q day AZITHROMYCI N 83358704943 No Longer Active Bertrand Patel DO Active CYMBALTA 30 MG CPEP 1 cap by mouth daily DULOXE CATHI HCL 36858156274 No Longer Active Bertrand Patel DO Active CYMBALTA 60 MG CPEP 1 cap by mouth daily DULOXE CATHI HCL 24250754581 Active Keysha Jones MA Active WELLBUTRIN 75 MG TABS 2 times daily BUPROPION H CL 12610614868 No Longer Active Bertrand Patel DO Active PROAIR HFA 108 (90 BASE) MCG/ACT AERS take one to two puffs po Q4-6 hour prn cough and shortness of breath ALBUTEROL SULFATE 0917972091 2 Active Silvia Arnold APRN Active AZITHROMYCIN 250 MG TABS take 2 po today then take 1 po days 2-5 AZITHROMYCIN 61081069418 No Longer Active Adolfo OSORIO Active PERMETHRIN 5 % CREA apply neck to toes tonight a nd then rinse off in morning. repeat at 7 days PERMETHRIN 35218884664 No Longer Active Adolfo OSORIO Active AMOXICILLIN 500 MG CAPS 2 po BID x 10 days AMOX ICILLIN 88357275221 No Longer Active Yoli Mercado MD PhD Active ALPRAZOLAM 0.5 MG TAB 1 tab by mouth tid ALPRAZOL AM 84073019149 Active Nitza Mullins RPT,RMA Active INSUPEN ULTRAFIN 31G X 6 MM MISC USE DIRECTED 03/04 INSULIN PEN NEEDLE 38702544735 No Longer Active Bertrand Patel DO Active TRANSDERM-SCOP 1.5 MG PT72 1 patch applied behind ear q 3 day 20 04/13/28 SCOPOLAMINE BASE 44745353088 No Longer Active Bertrand Patel DO Active MACRODANTIN 100 MG CAPS one p.o. b.i.d. x2 weeks 03/04 NITROFURANTOIN MACROCRYSTAL 63129284719 No Longer Active Bertrand Patel DO Active MACRODANTIN 100 MG CAPS one p.o. b.i.d. x2 weeks 03/04 MACRODANTIN 100 MG CAPS 2623926 NITROFURANTOIN MACROCRYSTAL Inactive TRANSDERM-SCOP 1.5 MG PT72 [...] at 7 days PERMETHRIN 5 % CREA 161898 PERMETHRIN Inactive WELLBUTRIN 75 MG TABS 2 times daily WELLBUTRIN 75 MG TABS BUPROPION HCL Inactive CYMBALTA 30 MG CPEP 1 cap by mouth daily CYMBALTA 30 MG CPEP 843131 DULOXETINE HCL Inactive AZITHROMYCIN 500 MG SOLR 1 po q day ALTA THROMYCIN 500 MG SOLR 41675273352 AZITHROMYCIN Inactive CINNAMON ALPHA LIPOIC AC CMPLX CAPS by mouth twice a d ay in AM by mouth twice a day in PM CINNAMON ALPHA LIPOIC AC CMPLX CAPS ALPHA LIPOIC [id number]-[id number] CAPS Inactive MICARDIS HCT 80-12.5 MG TABS 1 qd MICARDI S HCT 80-12.5 MG TABS 535611 TELMISARTAN-HCTZ Inactive PRAVASTATIN SODIUM 20 MG TABS 1 tablet by mouth daily at bedtime PRAVASTATIN SODIUM 20 MG TABS 681042 PRAVASTATIN SODIUM Inactive FUROSEMIDE 20 MG TABS 1 pill by mouth daily if needed for edema FUROSEMIDE 20 MG TABS 289844 FUROSEMIDE Inactive METFORMIN HCL 500 MG TABS 1 bid METFORMIN HCL 500 MG TABS 503512 METFORMIN HCL Inactive B-12 1000 MCG CAPS 1 tab daily B-12 1000 MCG CAP S CYANOCOBALAMIN Inactive VITAMIN E 200 UNIT CAPS 1 cap po qd VITAMIN E 2 00 UNIT CAPS 4965257 VITAMIN E Inactive [facility] MELATONIN 5-10 MG CR-TABS Take one by mouth daily at bedtime [facility] MELATONIN 5-10 MG CR-TABS MELATONIN-PYRIDOXI NE Inactive LORTAB 7.5-500 MG TABS take one po Q6 hours LORTAB 7.5-500 MG TABS HYDROCODONE-ACETAMINOPHEN Inactive AZITHROMYCIN 250 MG ORAL TABS Take 2 tabs po today then 1 ta b po daily AZITHROMYCIN 250 MG ORAL TABS 8651351 AZITHROMYCI N Inactive SYMBICORT 160-4.5 MCG/ACT AERO 2 puffs BID SYMBICORT 160- 4.5 MCG/ACT AERO BUDESONIDE-FORMOTEROL FUMARATE Inactive ALBUTEROL SULFATE 0.083 % NEBU SOLN one vial per nebul izer every 4-6 hours as needed ALBUTEROL SULFATE 0.083 % NEBU SOLN 95207 8 ALBUTEROL SULFATE Inactive NEBULIZER MISC use as directed NEBULIZER MISC NEBULIZERS Inactive TESSALON PERLES 100 MG CAP 1 tablet by mouth 3 times daily 07/07 TESSALON PERLES 100 MG CAP 159494 BENZONATATE Inact jairo CYCLOBENZAPRINE HCL 10 MG TABS Take 1 tab TID PRN for muscle pain CYCLOBENZAPRINE HCL 10 MG TABS 153791 CYCLOBENZAPRINE HCL Inactive AUGMENTIN 875-125 MG TAB 1 po BID x 10 days AUGMENTIN 875- 125 MG TAB 156583 AMOXICILLIN-POT CLAVULANATE Inactive BACTROBAN 2 % CREAM Apply to affected area BID for up to 10 days BACTROBAN 2 % CREAM 016453 MUPIROCIN CALCIUM Inactive AMOXICILLIN 500 MG CAPS 2 po BID x 10 days AMOXICILLIN 500 MG CAPS 134773 AMOXICILLIN Inactive AZITHROMYCIN 250 MG TABS take 2 po today then take 1 po days 2-5 AZITHROMYCIN 250 MG TABS 5804987 AZITHROMYCIN Inactiv e LEVAQUIN 500 MG TABS 1 pill by mouth daily LEVAQUIN 500 MG TABS 266673 LEVOFLOXACIN Inactive AUGMENTIN 875-125 MG TABS 1 pill by mouth twice daily AUGMENTIN 875-125 MG TABS 504609 AMOXICILLIN-POT CLAVULANATE Inacti ve AUGMENTIN 875-125 MG TAB 1 po BID x 10 days AUGMENTIN 875- 125 MG TAB 154088 AMOXICILLIN-POT CLAVULANATE Inactive PREDNISONE 20 MG TAB take 3 tabs daily for 3 days , 2 tabs daily for 3 days, 1 tab daily for 3 days, 1/2 tab daily for 3 days PREDNISONE 20 MG TAB 843559 PREDNISONE Inactive CIPRO 500 MG TAB 1 tablet by mouth twice daily CIPRO 500 MG TAB 547209 CIPROFLOXACIN HCL Inactive Vital Signs Date Name [...] 1.16 m[iU]/mL 0.36-3.74 sodium, serum 142 mmol/L 841-740 9352/07/22 carbon dioxide, venous blood 33.1 mmol/L 21.0-32 [...] 5.8 % 4.3-6.0 cholesterol, serum 200 mg/dL 724-450 3353/07/22 triglyceride, serum, fasting 56 mg/dL 30-200 HDL [...] 0-19 Encounters Code Encounter Date Provider Facility CPT-01305 Level 3 Est. Patient 11:27:00 TURKEY PICKER Ike Deluna MD [facility] CPT-35978 Level 3 Est. Patient 08:50:57 TURKEY PICKER Dangelo WELL SHOOTER [facility] CPT-92914 Level 3 Est. Patient 10:04:13 CDT Bertrand marquez [facility] CPT-32912 Level 4 Est. Patient 16:02:10 TURKEY PICKER Dangelo [facility] CPT-69171 Level 3 Est. Patient 13:04:54 TURKEY PICKER Dangelo [facility] CPT-95206 Level 3 Est. Patient 12:56:37 CDT Bertrand marquez [facility] CPT-58681 Level 3 Est. Patient 19:12:03 CDT Yoli tolbert MD PhD [facility] CPT-43512 Level 3 Est. Patient 14:36:01 CDT Yoli tolbert MD [facility] CPT-80674 Level 2 Est. Patient 08:00:22 CDT Jcarlos dc MD [facility]-24110 Level 3 Est. Patient 19:06:55 CDT Bertrand marquez [facility] CPT-68305 Level 3 Est. Patient 10:08:23 TURKEY PICKER Bertrand marquez [facility] CPT-18626 Level 3 Est. Patient 16:37:54 TURKEY PICKER Bertrand marquez [facility] CPT-78769 Level 3 Est. Patient 11:31:59 TURKEY PICKER Bertrand marquez [facility] CPT-43696 Level 3 Est. Patient 10:20:08 CDT Demie Ahl jacklyn [facility] CPT-50620 Level 3 Est. Patient 13:45:20 CDT Sanket Garciakelvin buckley [facility] CPT-64955 Level 3 Est. Patient 12:51:06 CDT Adolfo Jerzy villasenor [facility] CPT-86997 Level 3 Est. Patient 11:22:51 TURKEY PICKER Yoli tolbert MD PhD [facility] CPT-57183 Level 3 Est. Patient 13:33:19 CDT Bertrand Sabillon ee DO [facility] Procedures Code Procedure Name Date Entry Date Standard Desc ription CPT-47795 Wound Culture - LAB USE ONLY 15:45:25 CDT 2 CPT-75787 Venipuncture Draw Fee 10:23:01 CDT CPT-J0696 Rocephin 1000 mg (Ceftriaxone) 16:20:30 TURKEY PICKER CPT-32831 Abx/Therapy Injection 16:20:29 TURKEY PICKER CPT-J0696 Rocephin 1gm Inj Solr 15:51:59 TURKEY PICKER CPT-94670 Chest 2V Frontal and Lat 15:20:28 TURKEY PICKER 07/22 CPT-24077 Breathing Tx 14:51:55 TURKEY PICKER CPT-38753 Breathing Tx 09:57:16 TURKEY PICKER CPT-69973 Knee comp 4/> V 11:58:06 TURKEY PICKER
--- OUTSIDE RECORDS SUMMARY | 2019-11-13 10:17 | XMS REPORT | Clinical Summary ---
Author Author Admin, Enrique Adamson Organization [employer] Address Unknown Phone Unavailable Allergies, Adverse Reactions, [...] Cough SINUSITIS, ACUTE 461.9 Active Silvia PARISI food services director sinusitis, unspecified Fatigue 780.79 Active Silvia Arnold [...] then 1 ta b po daily AZITHROMYCIN 20360189726 Active Keysha Jones MA Active AUGMENTIN 875-125 MG TAB 1 po BID x 10 days AMOXICILLIN- POT CLAVULANATE 54826289278 No Longer Active Adriana Bender LPN Active TESSALON PERLES 100 MG CAP 1 tablet by mouth 3 times daily BENZONATATE 71445221704 Active Silvia Arnold APRN Active CHEWABLE CALCIUM 500-200-40 MG-UNT-MCG ORAL CHEW 1 chew tab bid 201 11/03/03 CALCIUM-VITAMIN D-VITAMIN K 59705484368 Active Silvia Arnold APRN Active EQ COMPLETE MULTIVIT ADULT 50+ ORAL TABS 1 tab po bid MULTIPLE VITAMINS-MINERALS 13301011298 Active Silvia Arnold APRN Act jairo HYDROCODONE-ACETAMINOPHEN 7.5-325 MG TABS TAKE ONE TAB EVERY 6 HOURS BY MOUTH NEEDED FOR PAIN HYDROCODONE-ACETAMINOPHEN 73978285648 Acti ve Bertrand Patel DO Active LORTAB 7.5-500 MG TABS take one po Q6 hours HYDROCODONE-ACETAMINOPHEN No Longer Active Nirmal Robbins RN Active [facility] MELATONIN 5-10 MG CR-TABS Take one by mouth daily at bedtime MELATONIN-PYRIDOXINE 21018910355 No Longer Active Bertrand Patel DO Active VITAMIN E 200 UNIT CAPS 1 cap po qd VITAMIN E 316 91944226 No Longer Active Bertrand Patel DO Active B-12 1000 MCG CAPS 1 tab daily CYANOCOBALAMIN 31 174439871 No Longer Active Bertrand Patel DO Active METFORMIN HCL 500 MG TABS 1 bid METFORMIN HCL 68987768843 No Longer Active Bertrand Patel DO Active FUROSEMIDE 20 MG TABS 1 pill by mouth daily if needed for edema FUROSEMIDE 36418776013 No Longer Active Bertrand Patel DO Act jairo PRAVASTATIN SODIUM 20 MG TABS 1 tablet by mouth daily at bedtime PRAVASTATIN SODIUM 91851797592 No Longer Active Bertrand Patel DO Active AUGMENTIN 875-125 MG TABS 1 pill by mouth twice daily AMOXICILLIN-POT CLAVULANATE 61873562064 No Longer Active Yoli Mercado MD PhD Active LEVAQUIN 500 MG TABS 1 pill by mouth daily LEVO FLOXACIN 56869401161 No Longer Active Yoli Mercado MD PhD Active CYCLOBENZAPRINE HCL 10 MG TABS Take 1 tab TID PRN for muscle pain CYCLOBENZAPRINE HCL 75146072648 Active Brittni Perrin Prakash TAPE EDITOR Active AMLODIPINE BESYLATE 5 MG TABS 1 tablet by mouth daily for bl ood pressure AMLODIPINE BESYLATE 16419436679 Active Nitza Dorman PT,RMA Active MICARDIS 80 MG TABS 1 tablet daily for blood pressure TELMISARTAN 64056197476 Active Nitza Mullins RPT,RMA Active MICARDIS HCT 80-12.5 MG TABS 1 qd TELMISARTA N-HCTZ 05627732606 No Longer Active Bertrand Patel DO Active CINNAMON ALPHA LIPOIC AC CMPLX CAPS by mouth twice a d ay in AM by mouth twice a day in PM ALPHA LIPOIC [id number]-[id number] CAPS 043189 50869 No Longer Active Bertrand Patel DO Active AZITHROMYCIN 500 MG SOLR 1 po q day AZITHROMYCI N 13982870117 No Longer Active Bertrand Patel DO Active CYMBALTA 30 MG CPEP 1 cap by mouth daily DULOXE CATHI HCL 96986949488 No Longer Active Bertrand Patel DO Active CYMBALTA 60 MG CPEP 1 cap by mouth daily DULOXE CATHI HCL 02955852911 Active Nitza Mullins RPT,RMA Active WELLBUTRIN 75 MG TABS 2 times daily BUPROPION H CL 79359707056 No Longer Active Bertrand Patel DO Active PROAIR HFA 108 (90 BASE) MCG/ACT AERS take one to two puffs po Q4-6 hour prn cough and shortness of breath ALBUTEROL SULFATE 3499686760 2 Active Silvia Arnold BELT GLASS SANDER Active AZITHROMYCIN 250 MG TABS take 2 po today then take 1 po days 2-5 AZITHROMYCIN 92337236430 No Longer Active Adolfo OSORIO Active PERMETHRIN 5 % CREA apply neck to toes tonight a nd then rinse off in morning. repeat at 7 days PERMETHRIN 57036199377 No Longer Active Adolfo OSORIO Active AMOXICILLIN 500 MG CAPS 2 po BID x 10 days AMOX ICILLIN 08156223403 No Longer Active Yoli Mercado MD PhD Active ALPRAZOLAM 0.5 MG TAB 1 tab by mouth tid ALPRAZOL AM 69116427855 Active Bertrand Patel DO Active INSUPEN ULTRAFIN 31G X 6 MM MISC USE DIRECTED 03/04 INSULIN PEN NEEDLE 97829241708 No Longer Active Bertrand Patel DO Active TRANSDERM-SCOP 1.5 MG PT72 1 patch applied behind ear q 3 day 20 04/13/28 SCOPOLAMINE BASE 32828880025 No Longer Active Bertrand Patel DO Active MACRODANTIN 100 MG CAPS one p.o. b.i.d. x2 weeks 03/04 NITROFURANTOIN MACROCRYSTAL 60494296917 No Longer Active Bertrand Patel DO Active MACRODANTIN 100 MG CAPS one p.o. b.i.d. x2 weeks 03/04 MACRODANTIN 100 MG CAPS 0853512 NITROFURANTOIN MACROCRYSTAL Inactive TRANSDERM-SCOP 1.5 MG PT72 [...] at 7 days PERMETHRIN 5 % CREA 068906 PERMETHRIN Inactive WELLBUTRIN 75 MG TABS 2 times daily WELLBUTRIN 75 MG TABS 073889 BUPROPION HCL Inactive CYMBALTA 30 MG CPEP 1 cap by mouth daily CYMBALTA 30 MG CPEP 975673 DULOXETINE HCL Inactive AZITHROMYCIN 500 MG SOLR 1 po q day ALTA THROMYCIN 500 MG SOLR 12403886112 AZITHROMYCIN Inactive CINNAMON ALPHA LIPOIC AC CMPLX CAPS by mouth twice a d ay in AM by mouth twice a day in PM CINNAMON ALPHA LIPOIC AC CMPLX CAPS ALPHA LIPOIC [id number] CAPS Inactive MICARDIS HCT 80-12.5 MG TABS 1 qd MICARDI S HCT 80-12.5 MG TABS 565234 TELMISARTAN-HCTZ Inactive PRAVASTATIN SODIUM 20 MG TABS 1 tablet by mouth daily at bedtime PRAVASTATIN SODIUM 20 MG TABS 646295 PRAVASTATIN SODIUM Inactive FUROSEMIDE 20 MG TABS 1 pill by mouth daily if needed for edema FUROSEMIDE 20 MG TABS 730107 FUROSEMIDE Inactive METFORMIN HCL 500 MG TABS 1 bid METFORMIN HCL 500 MG TABS 482785 METFORMIN HCL Inactive B-12 1000 MCG CAPS 1 tab daily B-12 1000 MCG CAP S CYANOCOBALAMIN Inactive VITAMIN E 200 UNIT CAPS 1 cap po qd VITAMIN E 2 00 UNIT CAPS 9589986 VITAMIN E Inactive [facility] MELATONIN 5-10 MG CR-TABS Take one by mouth daily at bedtime [facility] MELATONIN 5-10 MG CR-TABS MELATONIN-PYRIDOXI NE Inactive LORTAB 7.5-500 MG TABS take one po Q6 hours LORTAB 7.5-500 MG TABS HYDROCODONE-ACETAMINOPHEN Inactive AMOXICILLIN 500 MG CAPS 2 po BID x 10 days AMOXICILLIN 500 MG CAPS 045605 AMOXICILLIN Inactive AZITHROMYCIN 250 MG TABS take 2 po today then take 1 po days 2-5 AZITHROMYCIN 250 MG TABS 2384858 AZITHROMYCIN Inactiv e LEVAQUIN 500 MG TABS 1 pill by mouth daily LEVAQUIN 500 MG TABS 578216 LEVOFLOXACIN Inactive AUGMENTIN 875-125 MG TABS 1 pill by mouth twice daily AUGMENTIN 875-125 MG TABS 559903 AMOXICILLIN-POT CLAVULANATE Inacti ve AUGMENTIN 875-125 MG TAB 1 po BID x 10 days AUGMENTIN 875- 125 MG TAB 346465 AMOXICILLIN-POT CLAVULANATE Inactive Vital Signs Date Name [...] Negative;Positive Encounters Code Encounter Date Provider Facility CPT-25846 Level 3 Est. Patient 13:04:54 PETROLEUM INSPECTOR Silvia Ramírez TOAVRN [facility]-66357 Level 3 Est. Patient 12:56:37 CDT Bertrand marquez [facility] CPT-57171 Level 3 Est. Patient 19:12:03 CDT Yoli tolbert MD [facility]-68877 Level 3 Est. Patient 14:36:01 CDT Yoli tolbert MD [facility] CPT-56724 Level 2 Est. Patient 08:00:22 CDT Jcarlos dc MD [facility]-20776 Level 3 Est. Patient 19:06:55 CDT Bertrand marquez [facility] CPT-60389 Level 3 Est. Patient 10:08:23 PETROLEUM INSPECTOR Bertrand marquez [facility] CPT-23870 Level 3 Est. Patient 16:37:54 PETROLEUM INSPECTOR Bertrand marquez [facility] CPT-97984 Level 3 Est. Patient 11:31:59 PETROLEUM INSPECTOR Bertrand marquez [facility] CPT-74719 Level 3 Est. Patient 10:20:08 CDT Adolfo villasenor [facility] CPT-70626 Level 3 Est. Patient 13:45:20 CDT Sanket buckley [facility] CPT-02505 Level 3 Est. Patient 12:51:06 CDT Adolfo villasenor [facility] CPT-68392 Level 3 Est. Patient 11:22:51 PETROLEUM INSPECTOR Yoli tolbert MD [facility] CPT-68637 Level 3 Est. Patient 13:33:19 CDT eBrtrand marquez [facility] Procedures Code Procedure Name Date Entry Date Standard Desc ription CPT-17138 Breathing Tx 09:57:16 PETROLEUM INSPECTOR CPT-90449 Knee comp 4/> V 11:58:06 PETROLEUM INSPECTOR
--- OUTSIDE RECORDS SUMMARY | 2019-11-13 10:17 | XMS REPORT | Clinical Summary ---
Author Author Admin, Enrique Adamson Organization [employer] Address Unknown Phone Unavailable Allergies, Adverse Reactions, [...] 09/09/28 EDEMA LEG ICD-782.3 Inactive Adele Feldman FINANCIAL BUSINESS ANALYST 201 01/01/02 SHORTNESS OF BREATH ICD-786.05 Inactive Yoli Mercado MD PhD RIB PAIN, RIGHT SIDED ICD-786.50 Inactive Yoli Mercado MD PhD KNEE PAIN, RIGHT ICD-719.46 Inactive Adele Esqueda ghn FINANCIAL BUSINESS ANALYST Knee pain, left ICD-719.46 Inactive Adele Holden hn FINANCIAL BUSINESS ANALYST Pharyngitis-Acute ICD-462 Inactive Bertrand Redmond DO Polyuria ICD-788.42 Inactive Yoli Mercado MD P hD Cellulitis, leg, right ICD-682.6 Inactive uYki Deluna MD Foreign body, ear ICD-931 Inactive Yoli salazar MD PhD Fatigue ICD-780.79 Inactive Ike Deluna MD 201 12/01/06 Headache ICD-784.0 Inactive Adele Feldman FINANCIAL BUSINESS ANALYST 2017 Cough ICD-786.2 Inactive Adele Feldman FINANCIAL BUSINESS ANALYST 06/04 SINUSITIS, ACUTE ICD-461.9 Inactive Ike lange MD Fatigue ICD-780.79 Inactive Adele Feldman FINANCIAL BUSINESS ANALYST 2017 Bronchitis acute with bronchospasm ICD-466.0 I nactive Adele Feldman FINANCIAL BUSINESS ANALYST Animal bite ICD-919.8 Inactive Adele Feldman LP N Mycoplasma infection ICD-041.81 Inactive Anit a Feldman FINANCIAL BUSINESS ANALYST Amenorrhea, secondary ICD-626.0 Inactive Ani quinton Downsn FINANCIAL BUSINESS ANALYST Medication List Medication Instructions Start Date Stop Date Generic Name NDC Status Provider Patient Instruction ADDERALL 10 MG ORAL TABLET 1 tab twice daily 2 AMPHETAMINE-DEXTROAMPHETAMINE 29391627491 No Longer Active Nitza Phi llips Scribe Active ZITHROMAX Z-MARTIN 250 MG ORAL TABLET 2 today and then 1 daily for 4 days AZITHROMYCIN 34754784007 No Longer Active Nitza Osman lips Scribe Active BENZONATATE 200 MG ORAL CAPSULE 1 three times a day as neede d for cough BENZONATATE 82393217995 No Longer Active Nitza Osman lips Scribe Active VITAMIN D3 36854 UNIT ORAL CAPSULE 1 pill Week x 4 mo nths for vitamin D deficiency/osteoporosis CHOLECALCIFEROL 97277301822 N o Longer Active Layla Mcmullen Active BACTROBAN 2 % EXTERNAL CREAM Apply to affected area BID for up to 10 days MUPIROCIN CALCIUM 15417781809 No Longer Active Ike Deluna MD Active CIPRO 500 MG ORAL TABLET 1 tablet by mouth twice daily CIPROFLOXACIN HCL 03979338533 No Longer Active Adriana Bender LPN Active AUGMENTIN 875-125 MG ORAL TABLET 1 po BID x 10 days 18/04/06 AMOXICILLIN-POT CLAVULANATE 24502389972 No Longer Active Adriana Bender LPN Active MODAFINIL 200 MG ORAL TABLET Take 1/2 tab po in the am and 1 /2 tab po at noon MODAFINIL 45328710853 Active Bertrand Patel DO Ac tive CYCLOBENZAPRINE HCL 10 MG ORAL TABLET Take 1 tab TID PRN for mus triston pain CYCLOBENZAPRINE HCL 64706557697 No Longer Active Bertrand Patel DO Active TESSALON PERLES 100 MG ORAL CAPSULE 1 tablet by mouth 3 times da juan pablo BENZONATATE 02683860859 No Longer Active Bertrand Patel DO Ac tive NEBULIZER use as directed NEBULIZERS 17648054571 No Longer Active Bertrand Patel DO Active ALBUTEROL SULFATE (2.5 MG/3ML) 0.083% INHALATION NEBUL IZATION SOLUTION one vial per nebulizer every 4-6 hours as needed ALBUTERO L SULFATE 78793322786 No Longer Active Bertrand Patel DO Active SYMBICORT 160-4.5 MCG/ACT INHALATION AEROSOL 2 puffs BID 9 BUDESONIDE-FORMOTEROL FUMARATE 50618648117 No Longer Active Bertrand Patel DO Active PREDNISONE 20 MG ORAL TABLET take 3 tabs daily for 3 d ays, 2 tabs daily for 3 days, 1 tab daily for 3 days, 1/2 tab daily for 3 days 08/02 PREDNISONE 42200768052 No Longer Active Silvia Arnold ARCADE ATTENDANT Acti ve AZITHROMYCIN 250 MG ORAL TABLET Take 2 tabs po today then 1 tab po daily AZITHROMYCIN 32903354638 No Longer Active Silvia gavin ARCADE ATTENDANT Active AUGMENTIN 875-125 MG ORAL TABLET 1 po BID x 10 days 20 19/07/13 AMOXICILLIN-POT CLAVULANATE 02748904043 No Longer Active Adriana Bender LPN Active CHEWABLE CALCIUM 500-200-40 MG-UNT-MCG ORAL TABLET CHEWABLE 1 chew tab bid CALCIUM-VITAMIN D-VITAMIN K 53287338647 Active Silvia garlandgypsy ARCADE ATTENDANT Active EQ COMPLETE MULTIVIT ADULT 50+ ORAL TABLET 1 tab po bid MULTIPLE VITAMINS-MINERALS 74721599148 Active Silvia Arnold ARCADE ATTENDANT Act jairo HYDROCODONE-ACETAMINOPHEN 7.5-325 MG ORAL TABLET TAKE ONE TAB EVERY 6 HOURS BY MOUTH NEEDED FOR PAIN HYDROCODONE-ACETAMINOPHEN 004 48559519 Active Adele Feldman FINANCIAL BUSINESS ANALYST Active LORTAB 7.5-500 MG ORAL TABLET take one po Q6 hours 201 09/12/01 HYDROCODONE-ACETAMINOPHEN 10112439994 No Longer Active Nirmal Robbins RN Active [facility] MELATONIN 5-10 MG ORAL TABLET EXTENDED RELEASE Jair e one by mouth daily at bedtime MELATONIN-PYRIDOXINE 55898571841 No Longer Acti ve Bertrand Patel DO Active VITAMIN E 200 UNIT ORAL CAPSULE 1 cap po qd VITAM IN E 46524840921 No Longer Active Bertrand Patel DO Active B-12 1000 MCG ORAL CAPSULE 1 tab daily CYANOCOB ALAMIN 38411026421 No Longer Active Bertrand Patel DO Active METFORMIN HCL 500 MG ORAL TABLET 1 bid METFOR MIN HCL 35219412024 No Longer Active Bertrand Patel DO Active FUROSEMIDE 20 MG ORAL TABLET 1 pill by mouth daily if needed for edema FUROSEMIDE 16253264698 No Longer Active Bertrand Patel DO Active PRAVASTATIN SODIUM 20 MG ORAL TABLET 1 tablet by mouth daily at bedtime PRAVASTATIN SODIUM 37165213293 No Longer Active Bertrand Patel DO Active AUGMENTIN 875-125 MG ORAL TABLET 1 pill by mouth twice daily 201 09/10/00 AMOXICILLIN-POT CLAVULANATE 82793247708 No Longer Active Yoli Mercado MD PhD Active LEVAQUIN 500 MG ORAL TABLET 1 pill by mouth daily 2013 LEVOFLOXACIN 12101226206 No Longer Active Yoli Mercado MD PhD Acti ve AMLODIPINE BESYLATE 5 MG ORAL TABLET 1 tablet by mouth daily for blood pressure AMLODIPINE BESYLATE 70768734749 Active Bertrand Patel DO Active MICARDIS 80 MG ORAL TABLET 1 tablet daily for blood pressure 07/30 TELMISARTAN 50113752364 Active Bertrand Patel DO Active MICARDIS HCT 80-12.5 MG ORAL TABLET 1 qd TELMISARTAN-HCTZ 86310929176 No Longer Active Bertrand Patel DO Active CINNAMON ALPHA LIPOIC AC CMPLX CAPSULE by mouth twice a day in AM by mouth twice a day in PM ALPHA LIPOIC [id number] CA PS 66180902521 No Longer Active Bertrand Patel DO Active AZITHROMYCIN 500 MG INTRAVENOUS SOLUTION RECONSTITUTED 1 po q da y AZITHROMYCIN 16921237299 No Longer Active Bertrand Patel DO A ctive CYMBALTA 30 MG ORAL CAPSULE DELAYED RELEASE PARTICLES 1 cap by mouth daily DULOXETINE HCL 98923899637 No Longer Active Bertrand marquez DO Active CYMBALTA 60 MG ORAL CAPSULE DELAYED RELEASE PARTICLES 1 cap by mouth daily DULOXETINE HCL 10780479241 Active Bertrand Patel DO Active WELLBUTRIN 75 MG ORAL TABLET 2 times daily BUPR OPION HCL 03089305821 No Longer Active Bertrand Patel DO Active PROAIR HFA 108 (90 Base) MCG/ACT INHALATION AEROSOL SO LUTION take one to two puffs po Q4-6 hour prn cough and shortness of breath ALBUTEROL SULFATE 10880623484 Active Silvia Arnold APRN Active AZITHROMYCIN 250 MG ORAL TABLET take 2 po today then take 1 po days 2-5 AZITHROMYCIN 93739179929 No Longer Active Adolfo OSORIO Active PERMETHRIN 5 % EXTERNAL CREAM apply neck to toes tonig ht and then rinse off in morning. repeat at 7 days PERMETHRIN 86221068269 No Longer Active Adolfo OSORIO Active AMOXICILLIN 500 MG ORAL CAPSULE 2 po BID x 10 days 201 07/15/00 AMOXICILLIN 98637808871 No Longer Active Yoli Mercado MD PhD Acti ve ALPRAZOLAM 0.5 MG ORAL TABLET 1 tab by mouth tid ALPRAZOLAM 05607540488 Active Nitza Mullins LPN Active INSUPEN ULTRAFIN 31G X 6 MM USE DIRECTED INSULIN PEN NEEDLE 33598742923 No Longer Active Bertrand Patel DO Active TRANSDERM-SCOP (1.5 MG) 1 MG/3DAYS TRANSDERMAL PATCH 7 2 HOUR 1 patch applied behind ear q 3 day SCOPOLAMINE BASE 28296910005 No Lo nger Active Bertrand Patel DO Active MACRODANTIN 100 MG ORAL CAPSULE one p.o. b.i.d. x2 weeks NITROFURANTOIN MACROCRYSTAL 93559884026 No Longer Active Bertrand Patel DO Active MACRODANTIN 100 MG ORAL CAPSULE one p.o. b.i.d. x2 weeks MACRODANTIN 100 MG ORAL CAPSULE 8122143 NITROFURANTOIN MACROCRYSTAL Inactive TRANSDERM-SCOP (1.5 MG) 1 [...] days PERMETHRIN 5 % EXTER NAL CREAM 552992 PERMETHRIN Inactive WELLBUTRIN 75 MG ORAL TABLET 2 times daily WELLBUTRIN 75 MG ORAL TABLET 156982 BUPROPION HCL Inactive CYMBALTA 30 MG ORAL CAPSULE DELAYED RELEASE PARTICLES 1 cap by mouth daily CYMBALTA 30 MG ORAL CAPSULE DELAYED RELE ASE PARTICLES 158919 DULOXETINE HCL Inactive AZITHROMYCIN 500 MG INTRAVENOUS SOLUTION RECONSTITUTED 1 po q da y AZITHROMYCIN 500 MG INTRAVENOUS SOLUTION RECONSTITUTED 66345 970233 AZITHROMYCIN Inactive CINNAMON ALPHA LIPOIC AC CMPLX CAPSULE by mouth twice a day in AM by mouth twice a day in PM CINNAMON ALPHA LIPOIC AC CMPLX CAPSULE ALPHA LIPOIC [id number] CAPS Inactive MICARDIS HCT 80-12.5 MG ORAL TABLET 1 qd 07/30 MICARDIS HCT 80-12.5 MG ORAL TABLET 933929 TELMISARTAN-HCTZ Inactive PRAVASTATIN SODIUM 20 MG ORAL TABLET 1 tablet by mouth daily at bedtime PRAVASTATIN SODIUM 20 MG ORAL TABLET 423044 PRAVASTATIN SODIUM Inactive FUROSEMIDE 20 MG ORAL TABLET 1 pill by mouth daily if needed for edema FUROSEMIDE 20 MG ORAL TABLET 235107 FUROSEMIDE Inactive METFORMIN HCL 500 MG ORAL TABLET 1 bid METFORMIN HCL 500 MG ORAL TABLET 071570 METFORMIN HCL Inactive B-12 1000 MCG ORAL CAPSULE 1 tab daily B -12 1000 MCG ORAL CAPSULE CYANOCOBALAMIN Inactive VITAMIN E 200 UNIT ORAL CAPSULE 1 cap po qd 1 VITAMIN E 200 UNIT ORAL CAPSULE 9097508 VITAMIN E Inactive [facility] MELATONIN 5-10 MG ORAL TABLET EXTENDED RELEASE Jair e one by mouth daily at bedtime [facility] MELATONIN 5-10 M G ORAL TABLET EXTENDED RELEASE MELATONIN-PYRIDOXINE Inactive LORTAB 7.5-500 MG ORAL TABLET take one po Q6 hours 201 09/12/01 LORTAB 7.5-500 MG ORAL TABLET 961349 HYDROCODONE-ACETAMINOPHEN Inactive AZITHROMYCIN 250 MG ORAL TABLET Take 2 tabs po today then 1 tab po daily AZITHROMYCIN 250 MG ORAL TABLET 332920 AZITHROMY BERNARDO Inactive SYMBICORT 160-4.5 MCG/ACT INHALATION AEROSOL 2 puffs BID 9 SYMBICORT 160-4.5 MCG/ACT INHALATION AEROSOL BUDESONIDE-FORM OTEROL FUMARATE Inactive ALBUTEROL SULFATE (2.5 MG/3ML) 0.083% INHALATION NEBUL IZATION SOLUTION one vial per nebulizer every 4-6 hours as needed ALBUTEROL SULFATE (2.5 MG/3ML) 0.083% INHALATION NEBULIZATION SOLUTION 567979 ALBUTER OL SULFATE Inactive NEBULIZER use as directed NEBULIZER NEBULI ZERS Inactive TESSALON PERLES 100 MG ORAL CAPSULE 1 tablet by mouth 3 times da juan pablo TESSALON PERLES 100 MG ORAL CAPSULE 653300 BENZONATATE Inactive CYCLOBENZAPRINE HCL 10 MG ORAL TABLET Take 1 tab TID PRN for mus triston pain CYCLOBENZAPRINE HCL 10 MG ORAL TABLET 725559 CYCLOBENZA ANUJA HCL Inactive AUGMENTIN 875-125 MG ORAL TABLET 1 po BID x 10 days 20 18/04/06 AUGMENTIN 875-125 MG ORAL TABLET 616376 AMOXICILLIN-POT CLAVULANATE Inactive BACTROBAN 2 % EXTERNAL CREAM Apply to affected area BID for up to 10 days BACTROBAN 2 % EXTERNAL CREAM 944367 MUPIROCIN CA LCIUM Inactive VITAMIN D3 83216 UNIT ORAL CAPSULE 1 pill Week x 4 mo nths for vitamin D deficiency/osteoporosis VITAMIN D3 18145 UNIT ORAL CAPSULE CHOLECALCIFEROL Inactive BENZONATATE 200 MG ORAL CAPSULE 1 three times a day as neede d for cough BENZONATATE 200 MG ORAL CAPSULE 091639 BENZONATA TE Inactive ZITHROMAX Z-MARTIN 250 MG ORAL TABLET 2 today and then 1 daily for 4 days ZITHROMAX Z-MARTIN 250 MG ORAL TABLET 347704 AZITHR OMYCIN Inactive ADDERALL 10 MG ORAL TABLET 1 tab twice daily 2 ADDERALL 10 MG ORAL TABLET 558851 AMPHETAMINE-DEXTROAMPHETAMINE Inactive AMOXICILLIN 500 MG ORAL CAPSULE 2 po BID x 10 days 201 07/15/00 AMOXICILLIN 500 MG ORAL CAPSULE 993023 AMOXICILLIN Inactive AZITHROMYCIN 250 MG ORAL TABLET take 2 po today then take 1 po days 2-5 AZITHROMYCIN 250 MG ORAL TABLET 705028 AZITHROMY BERNARDO Inactive LEVAQUIN 500 MG ORAL TABLET 1 pill by mouth daily 2013 LEVAQUIN 500 MG ORAL TABLET 862736 LEVOFLOXACIN Inactive AUGMENTIN 875-125 MG ORAL TABLET 1 pill by mouth twice daily 201 09/10/00 AUGMENTIN 875-125 MG ORAL TABLET 185466 AMOXICILLIN-POT CLAVULANATE Inactive AUGMENTIN 875-125 MG ORAL TABLET 1 po BID x 10 days 19/07/13 AUGMENTIN 875-125 MG ORAL TABLET 192536 AMOXICILLIN-POT CLAVULANATE Inactive PREDNISONE 20 MG ORAL TABLET take 3 tabs daily for 3 d ays, 2 tabs daily for 3 days, 1 tab daily for 3 days, 1/2 tab daily for 3 days 08/02 PREDNISONE 20 MG ORAL TABLET 106066 PREDNISONE Inactive CIPRO 500 MG ORAL TABLET 1 tablet by mouth twice daily CIPRO 500 MG ORAL TABLET 977205 CIPROFLOXACIN HCL Inactive Vital Signs Date Name [...] HGBA1C - Chemistry sodium, serum 143 mmol/L 859-624 9314/01/02 carbon dioxide, venous blood 31.7 mmol/L 21.0-32 [...] 0-19 Encounters Code Encounter Date Provider Facility CPT-01478 Level 4 Est. Patient 15:33:35 QUARTER SECTION IRONER Bertrand marquez [facility] CPT-23462 Level 4 Est. Patient 12:31:54 CDT Bertrand marquez [facility] CPT-58129 Level 3 Est. Patient 11:27:00 QUARTER SECTION IRONER Ike Deluna MD [facility] CPT-14491 Level 3 Est. Patient 08:50:57 QUARTER SECTION IRONER Dangelo ARCADE ATTENDANT [facility] CPT-05610 Level 3 Est. Patient 10:04:13 CDT Bertrand marquez [facility] CPT-74017 Level 4 Est. Patient 16:02:10 QUARTER SECTION IRONER Dangelo [facility] CPT-37605 Level 3 Est. Patient 13:04:54 QUARTER SECTION IRONER Dangelo [facility]-49434 Level 3 Est. Patient 12:56:37 CDT Bertrand marquez [facility] CPT-17953 Level 3 Est. Patient 19:12:03 CDT Yoli tolbert MD PhD [facility] CPT-50026 Level 3 Est. Patient 14:36:01 CDT Yoli tolbert MD PhD [facility] CPT-01207 Level 2 Est. Patient 08:00:22 CDT cJarlos dc MD [facility]-74676 Level 3 Est. Patient 19:06:55 CDT Bertrand marquez [facility] CPT-34531 Level 3 Est. Patient 10:08:23 QUARTER SECTION IRONER Bertrand marquez [facility] CPT-28708 Level 3 Est. Patient 16:37:54 QUARTER SECTION IRONER Bertrand marquez [facility] CPT-09544 Level 3 Est. Patient 11:31:59 QUARTER SECTION IRONER Bertrand Jacklyn Lindsay marquez [facility] CPT-99948 Level 3 Est. Patient 10:20:08 CDT Adolfo villasenor [facility] CPT-72311 Level 3 Est. Patient 13:45:20 CDT Sanket buckley [facility] CPT-83943 Level 3 Est. Patient 12:51:06 CDT Adolfo villasenor [facility] CPT-68556 Level 3 Est. Patient 11:22:51 QUARTER SECTION IRONER Yoli tolbert MD PhD [facility] CPT-26255 Level 3 Est. Patient 13:33:19 CDT Bertrand marquez [facility] Procedures Code Procedure Name Date Entry Date Standard Desc ription CPT-66218 Wound Culture - LAB USE ONLY 15:45:25 CDT 2 CPT-25255 Venipuncture Draw Fee 10:23:01 CDT CPT-J0696 Rocephin 1000 mg (Ceftriaxone) 16:20:30 QUARTER SECTION IRONER CPT-61761 Abx/Therapy Injection 16:20:29 QUARTER SECTION IRONER CPT-J0696 Rocephin 1gm Inj Solr 15:51:59 QUARTER SECTION IRONER CPT-77965 Chest 2V Frontal and Lat 15:20:28 QUARTER SECTION IRONER 07/22 CPT-17995 Breathing Tx 14:51:55 QUARTER SECTION IRONER CPT-74029 Breathing Tx 09:57:16 QUARTER SECTION IRONER CPT-59936 Knee comp 4/> V 11:58:06 QUARTER SECTION IRONER
--- OUTSIDE RECORDS SUMMARY | 2019-11-13 10:17 | XMS REPORT | Clinical Summary ---
Author Author Admin, Enrique Adamson Organization [employer] Address Unknown Phone Unavailable Allergies, Adverse Reactions, [...] NDC Status Provider Patient Instruction VITAMIN D3 01380 UNIT CAPS 1 pill Week x 4 months for vitamin D deficiency/osteoporosis CHOLECALCIFEROL 05917895911 Active Darlyn Monzon Active BENZONATATE 200 MG ORAL CAPS 1 three times a day as needed for c ough BENZONATATE 75933524162 Active Ike Deluna MD Acti ve ZITHROMAX Z-MARTIN 250 MG TABS 2 today and then 1 daily for 4 days 201 12/01/06 AZITHROMYCIN 92082833396 Active Ike Deluna MD Active ADDERALL 10 MG ORAL TABS 1 tab twice daily AMPHETAMINE-DEXTROAMPHETAMINE 35964131665 Active Ike Deluna MD Active BACTROBAN 2 % CREAM Apply to affected area BID for up to 10 days MUPIROCIN CALCIUM 65100494417 No Longer Active Ike Deluna MD Active CIPRO 500 MG TAB 1 tablet by mouth twice daily CIPROFLOXACIN HCL 18292097584 No Longer Active Adriana Bender LPN Active AUGMENTIN 875-125 MG TAB 1 po BID x 10 days AMOXICILLIN- POT CLAVULANATE 60337487929 No Longer Active Adriana Bender LPN Active MODAFINIL 200 MG ORAL TABS Take 1/2 tab po in the am and 1/2 tab po at noon MODAFINIL 39946849568 Active Darlyn Monzon A ctive CYCLOBENZAPRINE HCL 10 MG TABS Take 1 tab TID PRN for muscle pain CYCLOBENZAPRINE HCL 27506470507 No Longer Active Bertrand Patel DO Ac tive TESSALON PERLES 100 MG CAP 1 tablet by mouth 3 times daily 07/07 BENZONATATE 73232054655 No Longer Active Bertrand Patel DO Ac tive NEBULIZER MISC use as directed NEBULIZERS 033361 20348 No Longer Active Bertrand Patel DO Active ALBUTEROL SULFATE 0.083 % NEBU SOLN one vial per nebul izer every 4-6 hours as needed ALBUTEROL SULFATE 40762381330 No Longer Active Bertrand Patel DO Active SYMBICORT 160-4.5 MCG/ACT AERO 2 puffs BID BUDESONIDE- FORMOTEROL FUMARATE 49610047485 No Longer Active Bertrand Patel DO Ac tive PREDNISONE 20 MG TAB take 3 tabs daily for 3 days , 2 tabs daily for 3 days, 1 tab daily for 3 days, 1/2 tab daily for 3 days P REDNISONE 18560594606 No Longer Active Silvia Arnold APRN Active AZITHROMYCIN 250 MG ORAL TABS Take 2 tabs po today then 1 ta b po daily AZITHROMYCIN 02625616937 No Longer Active Silvia Jorge leslye TOVARN Active AUGMENTIN 875-125 MG TAB 1 po BID x 10 days AMOXICILLIN- POT CLAVULANATE 95624943831 No Longer Active Adriana Bender LPN Active CHEWABLE CALCIUM 500-200-40 MG-UNT-MCG ORAL CHEW 1 chew tab bid 201 11/03/03 CALCIUM-VITAMIN D-VITAMIN K 72141834597 Active Silvia Arnold APRN Active EQ COMPLETE MULTIVIT ADULT 50+ ORAL TABS 1 tab po bid MULTIPLE VITAMINS-MINERALS 73346760875 Active Silvia Arnold APRN Act jairo HYDROCODONE-ACETAMINOPHEN 7.5-325 MG TABS TAKE ONE TAB EVERY 6 HOURS BY MOUTH NEEDED FOR PAIN HYDROCODONE-ACETAMINOPHEN 06786241120 Acti raheel Mcmullen Active LORTAB 7.5-500 MG TABS take one po Q6 hours HYDROCODONE-ACETAMINOPHEN No Longer Active Nirmal Robbins RN Active [facility] MELATONIN 5-10 MG CR-TABS Take one by mouth daily at bedtime MELATONIN-PYRIDOXINE 47280835826 No Longer Active Bertrand Patel DO Active VITAMIN E 200 UNIT CAPS 1 cap po qd VITAMIN E 316 69202347 No Longer Active Bertrand Patel DO Active B-12 1000 MCG CAPS 1 tab daily CYANOCOBALAMIN 31 912538243 No Longer Active Bertrand Patel DO Active METFORMIN HCL 500 MG TABS 1 bid METFORMIN HCL 64132633485 No Longer Active Bertrand Patel DO Active FUROSEMIDE 20 MG TABS 1 pill by mouth daily if needed for edema FUROSEMIDE 46325156872 No Longer Active Bertrand Patel DO Act jairo PRAVASTATIN SODIUM 20 MG TABS 1 tablet by mouth daily at bedtime PRAVASTATIN SODIUM 51284246372 No Longer Active Bertrand Patel DO Active AUGMENTIN 875-125 MG TABS 1 pill by mouth twice daily AMOXICILLIN-POT CLAVULANATE 35553643489 No Longer Active Yoli Mercado MD PhD Active LEVAQUIN 500 MG TABS 1 pill by mouth daily LEVO FLOXACIN 06193148589 No Longer Active Yoli Mercado MD PhD Active AMLODIPINE BESYLATE 5 MG TABS 1 tablet by mouth daily for bl ood pressure AMLODIPINE BESYLATE 39917970642 Active Darlyn Monzon Active MICARDIS 80 MG TABS 1 tablet daily for blood pressure TELMISARTAN 27835524756 Active Darlyn Monzon Active MICARDIS HCT 80-12.5 MG TABS 1 qd TELMISARTA N-HCTZ 80977359129 No Longer Active Bertrand Patel DO Active CINNAMON ALPHA LIPOIC AC CMPLX CAPS by mouth twice a d ay in AM by mouth twice a day in PM ALPHA LIPOIC [id number] CAPS 699294 85964 No Longer Active Bertrand Patel DO Active AZITHROMYCIN 500 MG SOLR 1 po q day AZITHROMYCI N 34904656476 No Longer Active Bertrand Patel DO Active CYMBALTA 30 MG CPEP 1 cap by mouth daily DULOXE CATHI HCL 56156839881 No Longer Active Bertrand Patel DO Active CYMBALTA 60 MG CPEP 1 cap by mouth daily DULOXE CATHI HCL 39774304644 Active Keysha Jones MA Active WELLBUTRIN 75 MG TABS 2 times daily BUPROPION H CL 58898609199 No Longer Active Bertrand W Jorge DO Active PROAIR HFA 108 (90 BASE) MCG/ACT AERS take one to two puffs po Q4-6 hour prn cough and shortness of breath ALBUTEROL SULFATE 6576291709 2 Active Silvia Arnold HAM MARKER Active AZITHROMYCIN 250 MG TABS take 2 po today then take 1 po days 2-5 AZITHROMYCIN 00746659887 No Longer Active Adolfo OSORIO Active PERMETHRIN 5 % CREA apply neck to toes tonight a nd then rinse off in morning. repeat at 7 days PERMETHRIN 02278890763 No Longer Active Adolfo OSORIO Active AMOXICILLIN 500 MG CAPS 2 po BID x 10 days AMOX ICILLIN 02797853098 No Longer Active Yoli Mercado MD PhD Active ALPRAZOLAM 0.5 MG TAB 1 tab by mouth tid ALPRAZOL AM 79824742500 Active Nitza Mullins RPT,RMA Active INSUPEN ULTRAFIN 31G X 6 MM MISC USE DIRECTED 03/04 INSULIN PEN NEEDLE 14980380272 No Longer Active Bertrand Patel DO Active TRANSDERM-SCOP 1.5 MG PT72 1 patch applied behind ear q 3 day 20 04/13/28 SCOPOLAMINE BASE 84786686011 No Longer Active Bertrand Patel DO Active MACRODANTIN 100 MG CAPS one p.o. b.i.d. x2 weeks 03/04 NITROFURANTOIN MACROCRYSTAL 60380146138 No Longer Active Bertrand Patel DO Active MACRODANTIN 100 MG CAPS one p.o. b.i.d. x2 weeks 03/04 MACRODANTIN 100 MG CAPS 1369148 NITROFURANTOIN MACROCRYSTAL Inactive TRANSDERM-SCOP 1.5 MG PT72 [...] at 7 days PERMETHRIN 5 % CREA 406553 PERMETHRIN Inactive WELLBUTRIN 75 MG TABS 2 times daily WELLBUTRIN 75 MG TABS BUPROPION HCL Inactive CYMBALTA 30 MG CPEP 1 cap by mouth daily CYMBALTA 30 MG CPEP 452331 DULOXETINE HCL Inactive AZITHROMYCIN 500 MG SOLR 1 po q day ALTA THROMYCIN 500 MG SOLR 60268392936 AZITHROMYCIN Inactive CINNAMON ALPHA LIPOIC AC CMPLX CAPS by mouth twice a d ay in AM by mouth twice a day in PM CINNAMON ALPHA LIPOIC AC CMPLX CAPS ALPHA LIPOIC [id number] CAPS Inactive MICARDIS HCT 80-12.5 MG TABS 1 qd MICARDI S HCT 80-12.5 MG TABS 298437 TELMISARTAN-HCTZ Inactive PRAVASTATIN SODIUM 20 MG TABS 1 tablet by mouth daily at bedtime PRAVASTATIN SODIUM 20 MG TABS 713959 PRAVASTATIN SODIUM Inactive FUROSEMIDE 20 MG TABS 1 pill by mouth daily if needed for edema FUROSEMIDE 20 MG TABS 671284 FUROSEMIDE Inactive METFORMIN HCL 500 MG TABS 1 bid METFORMIN HCL 500 MG TABS 590806 METFORMIN HCL Inactive B-12 1000 MCG CAPS 1 tab daily B-12 1000 MCG CAP S CYANOCOBALAMIN Inactive VITAMIN E 200 UNIT CAPS 1 cap po qd VITAMIN E 2 00 UNIT CAPS 3279778 VITAMIN E Inactive [facility] MELATONIN 5-10 MG CR-TABS Take one by mouth daily at bedtime [facility] MELATONIN 5-10 MG CR-TABS MELATONIN-PYRIDOXI NE Inactive LORTAB 7.5-500 MG TABS take one po Q6 hours LORTAB 7.5-500 MG TABS HYDROCODONE-ACETAMINOPHEN Inactive AZITHROMYCIN 250 MG ORAL TABS Take 2 tabs po today then 1 ta b po daily AZITHROMYCIN 250 MG ORAL TABS 4262831 AZITHROMYCI N Inactive SYMBICORT 160-4.5 MCG/ACT AERO 2 puffs BID SYMBICORT 160- 4.5 MCG/ACT AERO BUDESONIDE-FORMOTEROL FUMARATE Inactive ALBUTEROL SULFATE 0.083 % NEBU SOLN one vial per nebul izer every 4-6 hours as needed ALBUTEROL SULFATE 0.083 % NEBU SOLN 80438 8 ALBUTEROL SULFATE Inactive NEBULIZER MISC use as directed NEBULIZER MISC NEBULIZERS Inactive TESSALON PERLES 100 MG CAP 1 tablet by mouth 3 times daily 07/07 TESSALON PERLES 100 MG CAP 369913 BENZONATATE Inact jairo CYCLOBENZAPRINE HCL 10 MG TABS Take 1 tab TID PRN for muscle pain CYCLOBENZAPRINE HCL 10 MG TABS 217482 CYCLOBENZAPRINE HCL Inactive AUGMENTIN 875-125 MG TAB 1 po BID x 10 days AUGMENTIN 875- 125 MG TAB 227237 AMOXICILLIN-POT CLAVULANATE Inactive BACTROBAN 2 % CREAM Apply to affected area BID for up to 10 days BACTROBAN 2 % CREAM 228996 MUPIROCIN CALCIUM Inactive AMOXICILLIN 500 MG CAPS 2 po BID x 10 days AMOXICILLIN 500 MG CAPS 723346 AMOXICILLIN Inactive AZITHROMYCIN 250 MG TABS take 2 po today then take 1 po days 2-5 AZITHROMYCIN 250 MG TABS 9865352 AZITHROMYCIN Inactiv e LEVAQUIN 500 MG TABS 1 pill by mouth daily LEVAQUIN 500 MG TABS 969091 LEVOFLOXACIN Inactive AUGMENTIN 875-125 MG TABS 1 pill by mouth twice daily AUGMENTIN 875-125 MG TABS 194994 AMOXICILLIN-POT CLAVULANATE Inacti ve AUGMENTIN 875-125 MG TAB 1 po BID x 10 days AUGMENTIN 875- 125 MG TAB 180154 AMOXICILLIN-POT CLAVULANATE Inactive PREDNISONE 20 MG TAB take 3 tabs daily for 3 days , 2 tabs daily for 3 days, 1 tab daily for 3 days, 1/2 tab daily for 3 days PREDNISONE 20 MG TAB 238978 PREDNISONE Inactive CIPRO 500 MG TAB 1 tablet by mouth twice daily CIPRO 500 MG TAB 903898 CIPROFLOXACIN HCL Inactive Vital Signs Date Name [...] 5.8 % 4.3-6.0 cholesterol, serum 200 mg/dL 420-673 7446/07/22 triglyceride, serum, fasting 56 mg/dL 30-200 HDL cholesterol, serum 80 mg/dL 32-96 LDL cholesterol, serum 109 mg/dL 0-130 albumin/creatinine ratio, urine < 30 mg/g mg/g{creat} 0-2 9 TSH 1.16 m[iU]/mL 0.36-3.74 sodium, serum 142 mmol/L 164-507 2029/07/22 carbon dioxide, venous blood 33.1 mmol/L 21.0-32 [...] 0-19 Encounters Code Encounter Date Provider Facility CPT-05045 Level 4 Est. Patient 12:31:54 CDT Bertrand marquez [facility] CPT-97608 Level 3 Est. Patient 11:27:00 GRAIN SPOUTER Ike Deluna MD [facility] CPT-06511 Level 3 Est. Patient 08:50:57 GRAIN SPOUTER Dangelo HAM MARKER [facility] CPT-30812 Level 3 Est. Patient 10:04:13 CDT Bertrand marquez [facility] CPT-50739 Level 4 Est. Patient 16:02:10 GRAIN SPOUTER Dangelo HAM MARKER [facility] CPT-95861 Level 3 Est. Patient 13:04:54 GRAIN SPOUTER Dangelo BARAJAS [facility] CPT-50708 Level 3 Est. Patient 12:56:37 CDT Bertrand marquez [facility] CPT-96645 Level 3 Est. Patient 19:12:03 CDT Yoli tolbert MD [facility] CPT-09031 Level 3 Est. Patient 14:36:01 CDT Yoli tolbert MD [facility] CPT-25014 Level 2 Est. Patient 08:00:22 CDT Jcarlos dc MD [facility]-64573 Level 3 Est. Patient 19:06:55 CDT Bertrand marquez [facility] CPT-63773 Level 3 Est. Patient 10:08:23 GRAIN SPOUTER Bertrand marquez [facility] CPT-26128 Level 3 Est. Patient 16:37:54 GRAIN SPOUTER Bertrand marquez [facility] CPT-58273 Level 3 Est. Patient 11:31:59 GRAIN SPOUTER Bertrand marquez [facility] CPT-62037 Level 3 Est. Patient 10:20:08 CDT Adolfo villasenor [facility] CPT-15191 Level 3 Est. Patient 13:45:20 CDT Sanket buckley [facility] CPT-73237 Level 3 Est. Patient 12:51:06 CDT Adolfo villasenor [facility] CPT-52233 Level 3 Est. Patient 11:22:51 GRAIN SPOUTER Yoli tolbert MD [facility] CPT-77064 Level 3 Est. Patient 13:33:19 CDT Bertrand marquez [facility] Procedures Code Procedure Name Date Entry Date Standard Desc ription CPT-96335 Wound Culture - LAB USE ONLY 15:45:25 CDT 2 CPT-44215 Venipuncture Draw Fee 10:23:01 CDT CPT-J0696 Rocephin 1000 mg (Ceftriaxone) 16:20:30 GRAIN SPOUTER CPT-45290 Abx/Therapy Injection 16:20:29 GRAIN SPOUTER CPT-J0696 Rocephin 1gm Inj Solr 15:51:59 GRAIN SPOUTER CPT-51201 Chest 2V Frontal and Lat 15:20:28 GRAIN SPOUTER 07/22 CPT-64598 Breathing Tx 14:51:55 GRAIN SPOUTER CPT-99868 Breathing Tx 09:57:16 GRAIN SPOUTER CPT-78798 Knee comp 4/> V 11:58:06 GRAIN SPOUTER
--- OUTSIDE RECORDS SUMMARY | 2019-11-13 10:17 | XMS REPORT | Clinical Summary ---
Author Author Admin, Enrique Adamson Organization [employer] Address Unknown Phone Unavailable Allergies, Adverse Reactions, [...] RISK OF SLEEP APNEA V12.59 Active Adolfo OSROIO Other personal history of diseases of circulatory [...] Cough SINUSITIS, ACUTE 461.9 Active Silvia PARISI commission specialist sinusitis, unspecified Fatigue 780.79 Active Silvia Arnold [...] tablet by mouth twice daily CIPROFLOXACIN HCL 60036126126 Active Adriana Bender LPN Active AUGMENTIN 875-125 MG TAB 1 po BID x 10 days AMOXICILLIN- POT CLAVULANATE 88641791509 No Longer Active Adriana Bender LPN Active BACTROBAN 2 % CREAM Apply to affected area BID for up to 10 days 20 18/03/27 MUPIROCIN CALCIUM 65630276409 Active Silvia Arnold APRN Act jairo MODAFINIL 200 MG ORAL TABS Take 1/2 tab po in the am and 1/2 tab po at noon MODAFINIL 01274725255 Active Silvia Arnold APRN Active CYCLOBENZAPRINE HCL 10 MG TABS Take 1 tab TID PRN for muscle pain CYCLOBENZAPRINE HCL 99737718416 No Longer Active Bertrand Patel DO Ac tive TESSALON PERLES 100 MG CAP 1 tablet by mouth 3 times daily 07/07 BENZONATATE 32771653894 No Longer Active Bertrand Patel DO Ac tive NEBULIZER MISC use as directed NEBULIZERS 465851 40878 No Longer Active Bertrand Patel DO Active ALBUTEROL SULFATE 0.083 % NEBU SOLN one vial per nebul izer every 4-6 hours as needed ALBUTEROL SULFATE 20565870903 No Longer Active Bertrand Patel DO Active SYMBICORT 160-4.5 MCG/ACT AERO 2 puffs BID BUDESONIDE- FORMOTEROL FUMARATE 63186085685 No Longer Active Bertrand Patel DO Ac tive PREDNISONE 20 MG TAB take 3 tabs daily for 3 days , 2 tabs daily for 3 days, 1 tab daily for 3 days, 1/2 tab daily for 3 days P REDNISONE 27825022722 No Longer Active Silvia Arnold APRN Active AZITHROMYCIN 250 MG ORAL TABS Take 2 tabs po today then 1 ta b po daily AZITHROMYCIN 52178799780 No Longer Active Silvia gavin APRN Active AUGMENTIN 875-125 MG TAB 1 po BID x 10 days AMOXICILLIN- POT CLAVULANATE 57973971536 No Longer Active Adriana Bender LPN Active CHEWABLE CALCIUM 500-200-40 MG-UNT-MCG ORAL CHEW 1 chew tab bid 201 11/03/03 CALCIUM-VITAMIN D-VITAMIN K 00491385963 Active Silvia Arnold APRN Active EQ COMPLETE MULTIVIT ADULT 50+ ORAL TABS 1 tab po bid MULTIPLE VITAMINS-MINERALS 50530673782 Active Silvia Arnold APRN Act jairo HYDROCODONE-ACETAMINOPHEN 7.5-325 MG TABS TAKE ONE TAB EVERY 6 HOURS BY MOUTH NEEDED FOR PAIN HYDROCODONE-ACETAMINOPHEN 41589541092 Acti ve Lizy العلي Active LORTAB 7.5-500 MG TABS take one po Q6 hours HYDROCODONE-ACETAMINOPHEN No Longer Active Nirmal Robbins RN Active [facility] MELATONIN 5-10 MG CR-TABS Take one by mouth daily at bedtime MELATONIN-PYRIDOXINE 01184970278 No Longer Active Bertrand Patel DO Active VITAMIN E 200 UNIT CAPS 1 cap po qd VITAMIN E 316 50959846 No Longer Active Bertrand Patel DO Active B-12 1000 MCG CAPS 1 tab daily CYANOCOBALAMIN 31 785302443 No Longer Active Bertrand Patel DO Active METFORMIN HCL 500 MG TABS 1 bid METFORMIN HCL 21690681880 No Longer Active Bertrand Patel DO Active FUROSEMIDE 20 MG TABS 1 pill by mouth daily if needed for edema FUROSEMIDE 24309743681 No Longer Active Bertrand Patel DO Act jairo PRAVASTATIN SODIUM 20 MG TABS 1 tablet by mouth daily at bedtime PRAVASTATIN SODIUM 24639778160 No Longer Active Bertrand Patel DO Active AUGMENTIN 875-125 MG TABS 1 pill by mouth twice daily AMOXICILLIN-POT CLAVULANATE 20698631970 No Longer Active Yoli Mercado MD PhD Active LEVAQUIN 500 MG TABS 1 pill by mouth daily LEVO FLOXACIN 13317201434 No Longer Active Yoli Mercado MD PhD Active AMLODIPINE BESYLATE 5 MG TABS 1 tablet by mouth daily for bl ood pressure AMLODIPINE BESYLATE 66577487393 Active Keysha Jones MA Active MICARDIS 80 MG TABS 1 tablet daily for blood pressure TELMISARTAN 52849894643 Active Keysha Jones MA Active MICARDIS HCT 80-12.5 MG TABS 1 qd TELMISARTA N-HCTZ 25823636912 No Longer Active Bertrand Patel DO Active CINNAMON ALPHA LIPOIC AC CMPLX CAPS by mouth twice a d ay in AM by mouth twice a day in PM ALPHA LIPOIC [id number] CAPS 548412 68684 No Longer Active Bertrand Patel DO Active AZITHROMYCIN 500 MG SOLR 1 po q day AZITHROMYCI N 22377962833 No Longer Active Bertrand Patel DO Active CYMBALTA 30 MG CPEP 1 cap by mouth daily DULOXE CATHI HCL 63018346274 No Longer Active Bertrand Patel DO Active CYMBALTA 60 MG CPEP 1 cap by mouth daily DULOXE CATHI HCL 92205939297 Active Keysha Jones MA Active WELLBUTRIN 75 MG TABS 2 times daily BUPROPION H CL 41730507027 No Longer Active Bertrand Patel DO Active PROAIR HFA 108 (90 BASE) MCG/ACT AERS take one to two puffs po Q4-6 hour prn cough and shortness of breath ALBUTEROL SULFATE 8200783428 2 Active Silvia Arnold TOWER EQUIPMENT INSTALLER Active AZITHROMYCIN 250 MG TABS take 2 po today then take 1 po days 2-5 AZITHROMYCIN 75752750352 No Longer Active Adolfo OSORIO Active PERMETHRIN 5 % CREA apply neck to toes tonight a nd then rinse off in morning. repeat at 7 days PERMETHRIN 36265033498 No Longer Active Adolfo OSORIO Active AMOXICILLIN 500 MG CAPS 2 po BID x 10 days AMOX ICILLIN 91869479129 No Longer Active Yoli Mercado MD PhD Active ALPRAZOLAM 0.5 MG TAB 1 tab by mouth tid ALPRAZOL AM 07465308346 Active Nitza Mullins RPT,RMA Active INSUPEN ULTRAFIN 31G X 6 MM MISC USE DIRECTED 03/04 INSULIN PEN NEEDLE 48070060333 No Longer Active Bretrand Patel DO Active TRANSDERM-SCOP 1.5 MG PT72 1 patch applied behind ear q 3 day 20 04/13/28 SCOPOLAMINE BASE 73407994077 No Longer Active Bertrand Patel DO Active MACRODANTIN 100 MG CAPS one p.o. b.i.d. x2 weeks 03/04 NITROFURANTOIN MACROCRYSTAL 10254860449 No Longer Active Bertrand Patel DO Active MACRODANTIN 100 MG CAPS one p.o. b.i.d. x2 weeks 03/04 MACRODANTIN 100 MG CAPS 0613513 NITROFURANTOIN MACROCRYSTAL Inactive TRANSDERM-SCOP 1.5 MG PT72 [...] at 7 days PERMETHRIN 5 % CREA 318138 PERMETHRIN Inactive WELLBUTRIN 75 MG TABS 2 times daily WELLBUTRIN 75 MG TABS BUPROPION HCL Inactive CYMBALTA 30 MG CPEP 1 cap by mouth daily CYMBALTA 30 MG CPEP 674127 DULOXETINE HCL Inactive AZITHROMYCIN 500 MG SOLR 1 po q day ALTA THROMYCIN 500 MG SOLR 42682885663 AZITHROMYCIN Inactive CINNAMON ALPHA LIPOIC AC CMPLX CAPS by mouth twice a d ay in AM by mouth twice a day in PM CINNAMON ALPHA LIPOIC AC CMPLX CAPS ALPHA LIPOIC ASBA-QL-PHGNUARZ CAPS Inactive MICARDIS HCT 80-12.5 MG TABS 1 qd MICARDI S HCT 80-12.5 MG TABS 730739 TELMISARTAN-HCTZ Inactive PRAVASTATIN SODIUM 20 MG TABS 1 tablet by mouth daily at bedtime PRAVASTATIN SODIUM 20 MG TABS 241006 PRAVASTATIN SODIUM Inactive FUROSEMIDE 20 MG TABS 1 pill by mouth daily if needed for edema FUROSEMIDE 20 MG TABS 846333 FUROSEMIDE Inactive METFORMIN HCL 500 MG TABS 1 bid METFORMIN HCL 500 MG TABS 362678 METFORMIN HCL Inactive B-12 1000 MCG CAPS 1 tab daily B-12 1000 MCG CAP S CYANOCOBALAMIN Inactive VITAMIN E 200 UNIT CAPS 1 cap po qd VITAMIN E 2 00 UNIT CAPS 1671845 VITAMIN E Inactive [facility] MELATONIN 5-10 MG CR-TABS Take one by mouth daily at bedtime [facility] MELATONIN 5-10 MG CR-TABS MELATONIN-PYRIDOXI NE Inactive LORTAB 7.5-500 MG TABS take one po Q6 hours LORTAB 7.5-500 MG TABS HYDROCODONE-ACETAMINOPHEN Inactive AZITHROMYCIN 250 MG ORAL TABS Take 2 tabs po today then 1 ta b po daily AZITHROMYCIN 250 MG ORAL TABS 8562058 AZITHROMYCI N Inactive SYMBICORT 160-4.5 MCG/ACT AERO 2 puffs BID SYMBICORT 160- 4.5 MCG/ACT AERO BUDESONIDE-FORMOTEROL FUMARATE Inactive ALBUTEROL SULFATE 0.083 % NEBU SOLN one vial per nebul izer every 4-6 hours as needed ALBUTEROL SULFATE 0.083 % NEBU SOLN 14888 8 ALBUTEROL SULFATE Inactive NEBULIZER MISC use as directed NEBULIZER MISC NEBULIZERS Inactive TESSALON PERLES 100 MG CAP 1 tablet by mouth 3 times daily 07/07 TESSALON PERLES 100 MG CAP 360000 BENZONATATE Inact jairo CYCLOBENZAPRINE HCL 10 MG TABS Take 1 tab TID PRN for muscle pain CYCLOBENZAPRINE HCL 10 MG TABS 402071 CYCLOBENZAPRINE HCL Inactive AUGMENTIN 875-125 MG TAB 1 po BID x 10 days AUGMENTIN 875- 125 MG TAB 721118 AMOXICILLIN-POT CLAVULANATE Inactive AMOXICILLIN 500 MG CAPS 2 po BID x 10 days AMOXICILLIN 500 MG CAPS 450821 AMOXICILLIN Inactive AZITHROMYCIN 250 MG TABS take 2 po today then take 1 po days 2-5 AZITHROMYCIN 250 MG TABS 3035456 AZITHROMYCIN Inactiv e LEVAQUIN 500 MG TABS 1 pill by mouth daily LEVAQUIN 500 MG TABS 110227 LEVOFLOXACIN Inactive AUGMENTIN 875-125 MG TABS 1 pill by mouth twice daily AUGMENTIN 875-125 MG TABS 848551 AMOXICILLIN-POT CLAVULANATE Inacti ve AUGMENTIN 875-125 MG TAB 1 po BID x 10 days AUGMENTIN 875- 125 MG TAB 674754 AMOXICILLIN-POT CLAVULANATE Inactive PREDNISONE 20 MG TAB take 3 tabs daily for 3 days , 2 tabs daily for 3 days, 1 tab daily for 3 days, 1/2 tab daily for 3 days PREDNISONE 20 MG TAB 958837 PREDNISONE Inactive Vital Signs Date Name Value [...] 5.8 % 4.3-6.0 cholesterol, serum 200 mg/dL 402-975 7665/07/22 triglyceride, serum, fasting 56 mg/dL 30-200 HDL cholesterol, serum 80 mg/dL 32-96 LDL cholesterol, serum 109 mg/dL 0-130 albumin/creatinine ratio, urine < 30 mg/g mg/g{creat} 0-2 9 TSH 1.16 m[iU]/mL 0.36-3.74 sodium, serum 142 mmol/L 547-192 6664/07/22 carbon dioxide, venous blood 33.1 mmol/L 21.0-32 [...] Negative;Positive Encounters Code Encounter Date Provider Facility CPT-36525 Level 3 Est. Patient 10:04:13 CDT Bertrand marquez [facility] CPT-40540 Level 4 Est. Patient 16:02:10 TUBULAR SPLITTING MACHINE TENDER Dangelo [facility] CPT-70373 Level 3 Est. Patient 13:04:54 TUBULAR SPLITTING MACHINE TENDER Dangelo [facility]-83005 Level 3 Est. Patient 12:56:37 CDT Bertrand marquez [facility] CPT-10109 Level 3 Est. Patient 19:12:03 CDT Yoli tolbert MD [facility] CPT-23207 Level 3 Est. Patient 14:36:01 CDT Yoli tolbert MD [facility] CPT-46390 Level 2 Est. Patient 08:00:22 CDT Jcarlos dc MD [facility]-49043 Level 3 Est. Patient 19:06:55 CDT Bertrand marquez [facility] CPT-03339 Level 3 Est. Patient 10:08:23 TUBULAR SPLITTING MACHINE TENDER Bertrand marquez [facility]-44775 Level 3 Est. Patient 16:37:54 TUBULAR SPLITTING MACHINE TENDER Bertrand marquez [facility] CPT-26085 Level 3 Est. Patient 11:31:59 TUBULAR SPLITTING MACHINE TENDER Bertrand marquez [facility] CPT-69270 Level 3 Est. Patient 10:20:08 CDT Adolfo villasenor [facility] [facility]-31437 Level 3 Est. Patient 13:45:20 CDT Sanket buckley [facility] [facility]-63281 Level 3 Est. Patient 12:51:06 CDT Adolfo OSORIO [facility] CPT-70952 Level 3 Est. Patient 11:22:51 TUBULAR SPLITTING MACHINE TENDER Yoli tolbert MD PhD [facility] CPT-23670 Level 3 Est. Patient 13:33:19 CDT Bertrand Sabillon ee DO [facility] Procedures Code Procedure Name Date Entry Date Standard Desc ription CPT-23858 Wound Culture - LAB USE ONLY 15:45:25 CDT 2 CPT-28854 Venipuncture Draw Fee 10:23:01 CDT CPT-J0696 Rocephin 1000 mg (Ceftriaxone) 16:20:30 TUBULAR SPLITTING MACHINE TENDER CPT-63608 Abx/Therapy Injection 16:20:29 TUBULAR SPLITTING MACHINE TENDER CPT-J0696 Rocephin 1gm Inj Solr 15:51:59 TUBULAR SPLITTING MACHINE TENDER CPT-25144 Chest 2V Frontal and Lat 15:20:28 TUBULAR SPLITTING MACHINE TENDER 07/22 CPT-79757 Breathing Tx 14:51:55 TUBULAR SPLITTING MACHINE TENDER CPT-88808 Breathing Tx 09:57:16 TUBULAR SPLITTING MACHINE TENDER CPT-38379 Knee comp 4/> V 11:58:06 TUBULAR SPLITTING MACHINE TENDER
--- OUTSIDE RECORDS SUMMARY | 2019-11-13 10:18 | XMS REPORT | Clinical Summary ---
Author Author Admin, Enrique Adamson Organization [facility] Address Unknown Phone Unavailable Allergies, Adverse Reactions, [...] 09/09/28 EDEMA LEG ICD-782.3 Inactive Adele Feldman POSITION CLASSIFIER 201 01/01/02 SHORTNESS OF BREATH ICD-786.05 Inactive Yoli Mercado MD PhD RIB PAIN, RIGHT SIDED ICD-786.50 Inactive Yoli Mercado MD PhD KNEE PAIN, RIGHT ICD-719.46 Inactive Adele chiu POSITION CLASSIFIER Knee pain, left ICD-719.46 Inactive Adele damico POSITION CLASSIFIER Pharyngitis-Acute ICD-462 Inactive Bertrand Redmond DO Polyuria ICD-788.42 Inactive Yoli Mercado MD P hD Cellulitis, leg, right ICD-682.6 Inactive Yuki Deluna MD Foreign body, ear ICD-931 Inactive Yoli salazar MD PhD Fatigue ICD-780.79 Inactive Ike Deluna MD 201 12/01/06 Headache ICD-784.0 Inactive Adele Gaston ARTHUR 2017 Cough ICD-786.2 Inactive Adele Feldman POSITION CLASSIFIER 06/04 SINUSITIS, ACUTE ICD-461.9 Inactive Ike lange MD Fatigue ICD-780.79 Inactive Adele Feldman POSITION CLASSIFIER 2017 Bronchitis acute with bronchospasm ICD-466.0 I nactive Adele Feldman POSITION CLASSIFIER Animal bite ICD-919.8 Inactive Adele Feldman LP N Mycoplasma infection ICD-041.81 Inactive Anit a Feldman POSITION CLASSIFIER Amenorrhea, secondary ICD-626.0 Inactive Ani ta Feldman POSITION CLASSIFIER Medication List Medication Instructions Start Date Stop Date Generic Name NDC Status Provider Patient Instruction LEVAQUIN 500 MG ORAL TABLET 1 tablet by mouth daily LEVOFLOXACIN 86187602605 Active Bertrand Patel DO Active ADDERALL 10 MG ORAL TABLET 1 tab twice daily 2 AMPHETAMINE-DEXTROAMPHETAMINE 51131271311 No Longer Active Nitza Phi llips Scribe Active ZITHROMAX Z-MARTIN 250 MG ORAL TABLET 2 today and then 1 daily for 4 days AZITHROMYCIN 08638679856 No Longer Active Nitza Osman lips Scribe Active BENZONATATE 200 MG ORAL CAPSULE 1 three times a day as neede d for cough BENZONATATE 15060744076 No Longer Active Nitza Brewer lips Scribe Active VITAMIN D3 37098 UNIT ORAL CAPSULE 1 pill Week x 4 mo nt for vitamin D deficiency/osteoporosis CHOLECALCIFEROL 96615859592 N o Longer Active Layla Mcmullen Active BACTROBAN 2 % EXTERNAL CREAM Apply to affected area BID for up to 10 days MUPIROCIN CALCIUM 10036704596 No Longer Active Ike Deluna MD Active CIPRO 500 MG ORAL TABLET 1 tablet by mouth twice daily CIPROFLOXACIN HCL 97807777510 No Longer Active Adriana Bender LPN Active AUGMENTIN 875-125 MG ORAL TABLET 1 po BID x 10 days 18/04/06 AMOXICILLIN-POT CLAVULANATE 49747494227 No Longer Active Adriana Bender LPN Active MODAFINIL 200 MG ORAL TABLET Take 1/2 tab po in the am and 1 /2 tab po at noon MODAFINIL 33907992503 Active Bertrand Patel DO Ac tive CYCLOBENZAPRINE HCL 10 MG ORAL TABLET Take 1 tab TID PRN for mus triston pain CYCLOBENZAPRINE HCL 14009684752 No Longer Active Bertrand Patel DO Active TESSALON PERLES 100 MG ORAL CAPSULE 1 tablet by mouth 3 times da juan pablo BENZONATATE 85277183906 No Longer Active Bertrand Patel DO Ac tive NEBULIZER use as directed NEBULIZERS 10309983324 No Longer Active Bertrand Patel DO Active ALBUTEROL SULFATE (2.5 MG/3ML) 0.083% INHALATION NEBUL IZATION SOLUTION one vial per nebulizer every 4-6 hours as needed ALBUTERO L SULFATE 45338039627 No Longer Active Bertrand Patel DO Active SYMBICORT 160-4.5 MCG/ACT INHALATION AEROSOL 2 puffs BID 9 BUDESONIDE-FORMOTEROL FUMARATE 27450691620 No Longer Active Bertrand Patel DO Active PREDNISONE 20 MG ORAL TABLET take 3 tabs daily for 3 d ays, 2 tabs daily for 3 days, 1 tab daily for 3 days, 1/2 tab daily for 3 days 08/02 PREDNISONE 61214754243 No Longer Active Slivia Arell ENVIRONMENTAL ENGINEER SCIENTIST Active AZITHROMYCIN 250 MG ORAL TABLET Take 2 tabs po today then 1 tab po daily AZITHROMYCIN 44044299561 No Longer Active Silvia Arell ENVIRONMENTAL ENGINEER SCIENTIST Active AUGMENTIN 875-125 MG ORAL TABLET 1 po BID x 10 days 19/07/13 AMOXICILLIN-POT CLAVULANATE 14596103356 No Longer Active Adriana Bender LPN Active CHEWABLE CALCIUM 500-200-40 MG-UNT-MCG ORAL TABLET CHEWABLE 1 chew tab bid CALCIUM-VITAMIN D-VITAMIN K 90126194610 Active Silvia Are ll ENVIRONMENTAL ENGINEER SCIENTIST Active EQ COMPLETE MULTIVIT ADULT 50+ ORAL TABLET 1 tab po bid MULTIPLE VITAMINS-MINERALS 10461656353 Active Silvia Arell ENVIRONMENTAL ENGINEER SCIENTIST Active HYDROCODONE-ACETAMINOPHEN 7.5-325 MG ORAL TABLET TAKE ONE TAB EVERY 6 HOURS BY MOUTH NEEDED FOR PAIN HYDROCODONE-ACETAMINOPHEN 004 90388426 Active Bertrand Patel DO Active LORTAB 7.5-500 MG ORAL TABLET take one po Q6 hours 201 09/12/01 HYDROCODONE-ACETAMINOPHEN 94061851218 No Longer Active Nirmal Robbins RN Active [facility] MELATONIN 5-10 MG ORAL TABLET EXTENDED RELEASE Jair e one by mouth daily at bedtime MELATONIN-PYRIDOXINE 36629767377 No Longer Acti ve Bertrand Patel DO Active VITAMIN E 200 UNIT ORAL CAPSULE 1 cap po qd VITAM IN E 18901264675 No Longer Active Bertrand Patel DO Active B-12 1000 MCG ORAL CAPSULE 1 tab daily CYANOCOB ALAMIN 88896223799 No Longer Active Bertrand Patel DO Active METFORMIN HCL 500 MG ORAL TABLET 1 bid METFOR MIN HCL 91020626445 No Longer Active Bertrand Patel DO Active FUROSEMIDE 20 MG ORAL TABLET 1 pill by mouth daily if needed for edema FUROSEMIDE 31861568762 No Longer Active Bertrand Patel DO Active PRAVASTATIN SODIUM 20 MG ORAL TABLET 1 tablet by mouth daily at bedtime PRAVASTATIN SODIUM 89047497336 No Longer Active Bertrand Patel DO Active AUGMENTIN 875-125 MG ORAL TABLET 1 pill by mouth twice daily 201 09/10/00 AMOXICILLIN-POT CLAVULANATE 45586587212 No Longer Active Yoli Mercado MD PhD Active LEVAQUIN 500 MG ORAL TABLET 1 pill by mouth daily 2013 LEVOFLOXACIN 45187126070 No Longer Active Yoli Mercado MD PhD Acti ve AMLODIPINE BESYLATE 5 MG ORAL TABLET 1 tablet by mouth daily for blood pressure AMLODIPINE BESYLATE 59683032371 Active Bertrand Patel DO Active MICARDIS 80 MG ORAL TABLET 1 tablet daily for blood pressure 07/30 TELMISARTAN 19729006891 Active Bertrand Patel DO Active MICARDIS HCT 80-12.5 MG ORAL TABLET 1 qd TELMISARTAN-HCTZ 83556274895 No Longer Active Bertrand Patel DO Active CINNAMON ALPHA LIPOIC AC CMPLX CAPSULE by mouth twice a day in AM by mouth twice a day in PM ALPHA LIPOIC [id number] CA PS 04313823092 No Longer Active Bertrand Patel DO Active AZITHROMYCIN 500 MG INTRAVENOUS SOLUTION RECONSTITUTED 1 po q da y AZITHROMYCIN 26285364071 No Longer Active Bertrand Patel DO A ctive CYMBALTA 30 MG ORAL CAPSULE DELAYED RELEASE PARTICLES 1 cap by mouth daily DULOXETINE HCL 85507274827 No Longer Active Bertrand marquez DO Active CYMBALTA 60 MG ORAL CAPSULE DELAYED RELEASE PARTICLES 1 cap by mouth daily DULOXETINE HCL 54363154421 Active Bertrand Patel DO Active WELLBUTRIN 75 MG ORAL TABLET 2 times daily BUPR OPION HCL 10896015279 No Longer Active Bertrand Patel DO Active PROAIR HFA 108 (90 Base) MCG/ACT INHALATION AEROSOL SO LUTION take one to two puffs po Q4-6 hour prn cough and shortness of breath ALBUTEROL SULFATE 18465992187 Active Silvia Vazquez APRN Active AZITHROMYCIN 250 MG ORAL TABLET take 2 po today then take 1 po days 2-5 AZITHROMYCIN 00587345563 No Longer Active Adolfo OSORIO Active PERMETHRIN 5 % EXTERNAL CREAM apply neck to toes tonig ht and then rinse off in morning. repeat at 7 days PERMETHRIN 53496566487 No Longer Active Adolfo OSORIO Active AMOXICILLIN 500 MG ORAL CAPSULE 2 po BID x 10 days 201 07/15/00 AMOXICILLIN 40786842199 No Longer Active Yoli Mercado MD PhD Acti ve ALPRAZOLAM 0.5 MG ORAL TABLET 1 tab by mouth tid ALPRAZOLAM 50621419647 Active Bertrand Patel DO Active INSUPEN ULTRAFIN 31G X 6 MM USE DIRECTED INSULIN PEN NEEDLE 88743285407 No Longer Active Bertrand Patel DO Active TRANSDERM-SCOP (1.5 MG) 1 MG/3DAYS TRANSDERMAL PATCH 7 2 HOUR 1 patch applied behind ear q 3 day SCOPOLAMINE BASE 83657353054 No Lo nger Active Bertrand Patel DO Active MACRODANTIN 100 MG ORAL CAPSULE one p.o. b.i.d. x2 weeks NITROFURANTOIN MACROCRYSTAL 66182476033 No Longer Active Bertrand Patel DO Active MACRODANTIN 100 MG ORAL CAPSULE one p.o. b.i.d. x2 weeks MACRODANTIN 100 MG ORAL CAPSULE 3462822 NITROFURANTOIN MACROCRYSTAL Inactive TRANSDERM-SCOP (1.5 MG) 1 [...] days PERMETHRIN 5 % EXTER NAL CREAM 721231 PERMETHRIN Inactive WELLBUTRIN 75 MG ORAL TABLET 2 times daily WELLBUTRIN 75 MG ORAL TABLET 970617 BUPROPION HCL Inactive CYMBALTA 30 MG ORAL CAPSULE DELAYED RELEASE PARTICLES 1 cap by mouth daily CYMBALTA 30 MG ORAL CAPSULE DELAYED RELE ASE PARTICLES 407207 DULOXETINE HCL Inactive AZITHROMYCIN 500 MG INTRAVENOUS SOLUTION RECONSTITUTED 1 po q da y AZITHROMYCIN 500 MG INTRAVENOUS SOLUTION RECONSTITUTED 71600 921326 AZITHROMYCIN Inactive CINNAMON ALPHA LIPOIC AC CMPLX CAPSULE by mouth twice a day in AM by mouth twice a day in PM CINNAMON ALPHA LIPOIC AC CMPLX CAPSULE ALPHA LIPOIC VECE-TG-LNRIDADG CAPS Inactive MICARDIS HCT 80-12.5 MG ORAL TABLET 1 qd 07/30 MICARDIS HCT 80-12.5 MG ORAL TABLET 496143 TELMISARTAN-HCTZ Inactive PRAVASTATIN SODIUM 20 MG ORAL TABLET 1 tablet by mouth daily at bedtime PRAVASTATIN SODIUM 20 MG ORAL TABLET 364337 PRAVASTATIN SODIUM Inactive FUROSEMIDE 20 MG ORAL TABLET 1 pill by mouth daily if needed for edema FUROSEMIDE 20 MG ORAL TABLET 353291 FUROSEMIDE Inactive METFORMIN HCL 500 MG ORAL TABLET 1 bid METFORMIN HCL 500 MG ORAL TABLET 346442 METFORMIN HCL Inactive B-12 1000 MCG ORAL CAPSULE 1 tab daily B -12 1000 MCG ORAL CAPSULE CYANOCOBALAMIN Inactive VITAMIN E 200 UNIT ORAL CAPSULE 1 cap po qd 1 VITAMIN E 200 UNIT ORAL CAPSULE 9280028 VITAMIN E Inactive [facility] MELATONIN 5-10 MG [...] po daily AZITHROMYCIN 250 MG ORAL TABLET 168133 AZITHROMY BERNARDO Inactive SYMBICORT 160-4.5 MCG/ACT INHALATION AEROSOL 2 puffs BID 9 SYMBICORT 160-4.5 MCG/ACT INHALATION AEROSOL BUDESONIDE-FORM OTEROL FUMARATE Inactive ALBUTEROL SULFATE (2.5 MG/3ML) 0.083% INHALATION NEBUL IZATION SOLUTION one vial per nebulizer every 4-6 hours as needed ALBUTEROL SULFATE (2.5 MG/3ML) 0.083% INHALATION NEBULIZATION SOLUTION 059165 ALBUTER OL SULFATE Inactive NEBULIZER use as directed NEBULIZER NEBULI ZERS Inactive TESSALON PERLES 100 MG ORAL CAPSULE 1 tablet by mouth 3 times da juan pablo TESSALON PERLES 100 MG ORAL CAPSULE 847823 BENZONATATE Inactive CYCLOBENZAPRINE HCL 10 MG ORAL TABLET Take 1 tab TID PRN for mus triston pain CYCLOBENZAPRINE HCL 10 MG ORAL TABLET 020243 CYCLOBENZA ANUJA HCL Inactive AUGMENTIN 875-125 MG ORAL TABLET 1 po BID x 10 days 20 18/04/06 AUGMENTIN 875-125 MG ORAL TABLET 864801 AMOXICILLIN-POT CLAVULANATE Inactive BACTROBAN 2 % EXTERNAL CREAM Apply to affected area BID for up to 10 days BACTROBAN 2 % EXTERNAL CREAM 524691 MUPIROCIN CA LCIUM Inactive VITAMIN D3 61310 UNIT ORAL CAPSULE 1 pill Week x 4 mo nt for vitamin D deficiency/osteoporosis VITAMIN D3 44334 UNIT ORAL CAPSULE CHOLECALCIFEROL Inactive BENZONATATE 200 MG ORAL CAPSULE 1 three times a day as neede d for cough BENZONATATE 200 MG ORAL CAPSULE 573403 BENZONATA TE Inactive ZITHROMAX Z-MARTIN 250 MG ORAL TABLET 2 today and then 1 daily for 4 days ZITHROMAX Z-MARTIN 250 MG ORAL TABLET 860744 AZITHR OMYCIN Inactive ADDERALL 10 MG ORAL TABLET 1 tab twice daily 2 ADDERALL 10 MG ORAL TABLET 025777 AMPHETAMINE-DEXTROAMPHETAMINE Inactive AMOXICILLIN 500 MG ORAL CAPSULE 2 po BID x 10 days 201 07/15/00 AMOXICILLIN 500 MG ORAL CAPSULE 006076 AMOXICILLIN Inactive AZITHROMYCIN 250 MG ORAL TABLET take 2 po today then take 1 po days 2-5 AZITHROMYCIN 250 MG ORAL TABLET 412335 AZITHROMY BERNARDO Inactive LEVAQUIN 500 MG ORAL TABLET 1 pill by mouth daily 2013 LEVAQUIN 500 MG ORAL TABLET 132985 LEVOFLOXACIN Inactive AUGMENTIN 875-125 MG ORAL TABLET 1 pill by mouth twice daily 201 09/10/00 AUGMENTIN 875-125 MG ORAL TABLET 139009 AMOXICILLIN-POT CLAVULANATE Inactive AUGMENTIN 875-125 MG ORAL TABLET 1 po BID x 10 days 20 19/07/13 AUGMENTIN 875-125 MG ORAL TABLET 116586 AMOXICILLIN-POT CLAVULANATE Inactive PREDNISONE 20 MG ORAL TABLET take 3 tabs daily for 3 d ays, 2 tabs daily for 3 days, 1 tab daily for 3 days, 1/2 tab daily for 3 days 08/02 PREDNISONE 20 MG ORAL TABLET 258675 PREDNISONE Inactive CIPRO 500 MG ORAL TABLET 1 tablet by mouth twice daily CIPRO 500 MG ORAL TABLET 308236 CIPROFLOXACIN HCL Inactive Vital Signs Date Name [...] Description Lab Report: CBC, Comp. Metabolic Panel, [facility] - Chemistry sodium, serum 143 mmol/L 505-327 8638/01/02 carbon dioxide, venous blood 31.7 mmol/L 21.0-32 [...] 0-19 Encounters Code Encounter Date Provider Facility CPT-73515 Level 3 Est. Patient 11:40:23 CDT Bertrand marquez DO [facility] CPT-07836 Level 4 Est. Patient 15:33:35 ROLL CHANGER Bertrand marquez DO [facility] CPT-45089 Level 4 Est. Patient 12:31:54 CDT Bertrand marquez DO [facility] CPT-74793 Level 3 Est. Patient 11:27:00 ROLL CHANGER Ike Deluna MD [facility] CPT-37337 Level 3 Est. Patient 08:50:57 ROLL CHANGER Silvia gagnon APRN [facility] CPT-31870 Level 3 Est. Patient 10:04:13 CDT Bertrand W L ee [facility]-48597 Level 4 Est. Patient 16:02:10 ROLL CHANGER Silvia Are ll [facility] CPT-72282 Level 3 Est. Patient 13:04:54 ROLL CHANGER Silvia Are ll [facility]-46669 Level 3 Est. Patient 12:56:37 CDT Bertrand marquez [facility]-24159 Level 3 Est. Patient 19:12:03 CDT Yoli tolbert MD [facility]-33796 Level 3 Est. Patient 14:36:01 CDT Yoli tolbert MD [facility]19880 Level 2 Est. Patient 08:00:22 CDT Jcarlos dc MD [facility]-56035 Level 3 Est. Patient 19:06:55 CDT Bertrand marquez [facility]-75413 Level 3 Est. Patient 10:08:23 ROLL CHANGER Bertrand marquez [facility]-03127 Level 3 Est. Patient 16:37:54 ROLL CHANGER Bertrand marquez [facility]-36550 Level 3 Est. Patient 11:31:59 ROLL CHANGER Bertrand marquez [facility] CPT-19887 Level 3 Est. Patient 10:20:08 CDT Adolfo villasenor [facility]-37513 Level 3 Est. Patient 13:45:20 CDT Sanket buckley [facility]-65429 Level 3 Est. Patient 12:51:06 CDT Adolfo villasenor [facility]-64128 Level 3 Est. Patient 11:22:51 ROLL CHANGER Yoli tolbert MD [facility]80090 Level 3 Est. Patient 13:33:19 CDT Bertrand marquez [facility] Procedures Code Procedure Name Date Entry Date Standard Desc ription CPT-34302 Wound Culture - LAB USE ONLY 15:45:25 CDT 2 CPT-04849 Venipuncture Draw Fee 10:23:01 CDT CPT-J0696 Rocephin 1000 mg (Ceftriaxone) 16:20:30 ROLL CHANGER CPT-77340 Abx/Therapy Injection 16:20:29 ROLL CHANGER CPT-J0696 Rocephin 1gm Inj Solr 15:51:59 ROLL CHANGER CPT-53165 Chest 2V Frontal and Lat 15:20:28 ROLL CHANGER 07/22 CPT-49594 Breathing Tx 14:51:55 ROLL CHANGER CPT-63251 Breathing Tx 09:57:16 ROLL CHANGER CPT-22696 Knee comp 4/> V 11:58:06 ROLL CHANGER
--- OUTSIDE RECORDS SUMMARY | 2019-11-13 10:18 | XMS REPORT | Clinical Summary ---
Author Author Admin, Enrique Adamson Organization [facility] Address Unknown Phone Unavailable Allergies, Adverse Reactions, [...] 784.0 Active Bertrand Patel DO He adache HEALTH SCREENING ICD-V70.0 Inactive Yoli sabillon MD [...] Generic Name NDC Status Provider Patient Instruction HYDROCODONE-ACETAMINOPHEN 7.5-325 MG TABS TAKE ONE TAB EVERY 6 HOURS BY MOUTH NEEDED FOR PAIN HYDROCODONE-ACETAMINOPHEN [id number] Acti ve Bertrand Patel DO Active LORTAB 7.5-500 MG TABS take one po Q6 hours HYDROCODONE-ACETAMINOPHEN No Longer Active Nirmal Robbins RN Active [facility] MELATONIN 5-10 MG CR-TABS Take one by mouth daily at bedtime MELATONIN-PYRIDOXINE 02439843183 No Longer Active Bertrand Patel DO Active VITAMIN E 200 UNIT CAPS 1 cap po qd VITAMIN E 316 61834634 No Longer Active Bertrand Patel DO Active B-12 1000 MCG CAPS 1 tab daily CYANOCOBALAMIN 31 328083006 No Longer Active Bertrand Patel DO Active METFORMIN HCL 500 MG TABS 1 bid METFORMIN HCL 72460412969 No Longer Active Bertrand Patel DO Active FUROSEMIDE 20 MG TABS 1 pill by mouth daily if needed for edema FUROSEMIDE 84079209376 No Longer Active Bertrand Patel DO Act jairo PRAVASTATIN SODIUM 20 MG TABS 1 tablet by mouth daily at bedtime PRAVASTATIN SODIUM 65675397390 No Longer Active Bertrand Patel DO Active AUGMENTIN 875-125 MG TABS 1 pill by mouth twice daily AMOXICILLIN-POT CLAVULANATE 46083821893 No Longer Active Yoli Mercado MD PhD Active LEVAQUIN 500 MG TABS 1 pill by mouth daily LEVO FLOXACIN 32580085826 No Longer Active Yoli Mercado MD PhD Active CYCLOBENZAPRINE HCL 10 MG TABS Take 1 tab TID PRN for muscle pain CYCLOBENZAPRINE HCL 18144618094 Active Brittni Fernándezum MILL ROLL REWINDER Active AMLODIPINE BESYLATE 5 MG TABS 1 tablet by mouth daily for bl ood pressure AMLODIPINE BESYLATE 62172039408 Active Bertrand Patel DO Active MICARDIS 80 MG TABS 1 tablet daily for blood pressure TELMISARTAN 87485711581 Active Bertrand Patel DO Active MICARDIS HCT 80-12.5 MG TABS 1 qd TELMISARTA N-HCTZ 60784986693 No Longer Active Bertrand Patel DO Active CINNAMON ALPHA LIPOIC AC CMPLX CAPS by mouth twice a d ay in AM by mouth twice a day in PM ALPHA LIPOIC [id number] CAPS 901336 27696 No Longer Active Bertrand Patel DO Active AZITHROMYCIN 500 MG SOLR 1 po q day AZITHROMYCI N 19138446499 No Longer Active Bertrand Patel DO Active CYMBALTA 30 MG CPEP 1 cap by mouth daily DULOXE CATHI HCL 01012033732 No Longer Active Bertrand Patel DO Active CYMBALTA 60 MG CPEP 1 cap by mouth daily DULOXE CATHI HCL 73128246072 Active Bertrand Patel DO Active WELLBUTRIN 75 MG TABS 2 times daily BUPROPION H CL 21716386503 No Longer Active Bertrand Patel DO Active PROAIR HFA 108 (90 BASE) MCG/ACT AERS take one to two puffs po Q4-6 hour prn cough and shortness of breath ALBUTEROL SULFATE 7765954417 1 Active Adolfo OSORIO Active AZITHROMYCIN 250 MG TABS take 2 po today then take 1 po days 2-5 AZITHROMYCIN 25272477218 No Longer Active Adolfo OSORIO Active PERMETHRIN 5 % CREA apply neck to toes tonight a nd then rinse off in morning. repeat at 7 days PERMETHRIN 39981530503 No Longer Active Adolfo OSORIO Active AMOXICILLIN 500 MG CAPS 2 po BID x 10 days AMOX ICILLIN 11671091487 No Longer Active Yoli Mercado MD PhD Active ALPRAZOLAM 0.5 MG TAB 1 tab by mouth tid ALPRAZOL AM 75896941094 Active Bertrand Patel DO Active INSUPEN ULTRAFIN 31G X 6 MM MISC USE DIRECTED 03/04 INSULIN PEN NEEDLE 79471449939 No Longer Active Bertrand Patel DO Active TRANSDERM-SCOP 1.5 MG PT72 1 patch applied behind ear q 3 day 20 04/13/28 SCOPOLAMINE BASE 04458072714 No Longer Active Bertrand Patel DO Active MACRODANTIN 100 MG CAPS one p.o. b.i.d. x2 weeks 03/04 NITROFURANTOIN MACROCRYSTAL 56070448360 No Longer Active Bertrand Patel DO Active MACRODANTIN 100 MG CAPS one p.o. b.i.d. x2 weeks 03/04 MACRODANTIN 100 MG CAPS 3249380 NITROFURANTOIN MACROCRYSTAL Inactive TRANSDERM-SCOP 1.5 MG PT72 [...] at 7 days PERMETHRIN 5 % CREA 479036 PERMETHRIN Inactive WELLBUTRIN 75 MG TABS 2 times daily WELLBUTRIN 75 MG TABS 701769 BUPROPION HCL Inactive CYMBALTA 30 MG CPEP 1 cap by mouth daily CYMBALTA 30 MG CPE 952686 DULOXETINE HCL Inactive AZITHROMYCIN 500 MG SOLR 1 po q day ALTA THROMYCIN 500 MG SOLR 194482 AZITHROMYCIN Inactive CINNAMON ALPHA LIPOIC AC CMPLX CAPS by mouth twice a d ay in AM by mouth twice a day in PM CINNAMON ALPHA LIPOIC AC CMPLX CAPS ALPHA LIPOIC XYLE-XL-AMNXYNAW CAPS Inactive MICARDIS HCT 80-12.5 MG TABS 1 qd MICARDI S HCT 80-12.5 MG TABS 688191 TELMISARTAN-HCTZ Inactive PRAVASTATIN SODIUM 20 MG TABS 1 tablet by mouth daily at bedtime PRAVASTATIN SODIUM 20 MG TABS 944031 PRAVASTATIN SODIUM Inactive FUROSEMIDE 20 MG TABS 1 pill by mouth daily if needed for edema FUROSEMIDE 20 MG TABS 484800 FUROSEMIDE Inactive METFORMIN HCL 500 MG TABS 1 bid METFORMIN HCL 500 MG TABS 041918 METFORMIN HCL Inactive B-12 1000 MCG CAPS 1 tab daily B-12 1000 MCG CAP S CYANOCOBALAMIN Inactive VITAMIN E 200 UNIT CAPS 1 cap po qd VITAMIN E 2 00 UNIT CAPS 7025477 VITAMIN E Inactive [facility] MELATONIN 5-10 MG CR-TABS Take one by mouth daily at bedtime [facility] MELATONIN 5-10 MG CR-TABS MELATONIN-PYRIDOXI NE Inactive LORTAB 7.5-500 MG TABS take one po Q6 hours LORTAB 7.5-500 MG TABS HYDROCODONE-ACETAMINOPHEN Inactive AMOXICILLIN 500 MG CAPS 2 po BID x 10 days AMOXICILLIN 500 MG CAPS 011706 AMOXICILLIN Inactive AZITHROMYCIN 250 MG TABS take 2 po today then take 1 po days 2-5 AZITHROMYCIN 250 MG TABS 7786335 AZITHROMYCIN Inactiv e LEVAQUIN 500 MG TABS 1 pill by mouth daily LEVAQUIN 500 MG TABS 716714 LEVOFLOXACIN Inactive AUGMENTIN 875-125 MG TABS 1 pill by mouth twice daily AUGMENTIN 875-125 MG TABS 994320 AMOXICILLIN-POT CLAVULANATE Inacti ve Vital Signs Date Name Value Unit Range Description blood pressure, diastolic - 8462-4 99 mm[Hg] BP frederick blood pressure, systolic - 8480-6 158 mm[Hg] BP sys pulse rate E&M - 8867-4 77 /min H eart rate temperature E&M 97.8 [degF] Body temp erature weight E&M - 3141-9 375 [lb_av] Weigh t Measured blood pressure, diastolic - 8462-4 74 mm[Hg] BP frederick blood pressure, systolic - 8480-6 116 mm[Hg] BP sys height E&M - 8302-2 65 [in_us] Bdy h eight pulse rate E&M - 8867-4 87 /min H eart rate temperature E&M 98.4 [degF] Body temp erature weight E&M - 3141-9 407 [lb_av] Weigh t Measured blood pressure, diastolic - 8462-4 82 mm[Hg] BP frederick blood pressure, systolic - 8480-6 152 mm[Hg] BP sys height E&M - 8302-2 65 [in_us] Bdy h eight pulse rate E&M - 8867-4 101 /min H eart rate temperature E&M 98.2 [degF] Body temp erature weight E&M - 3141-9 419.56 [lb_av] Weigh t Measured Diagnostic Results Date Name Value Unit Range Description Lab Report: Comp. Metabolic Panel, HGBA1 C, CBC - Chemistry sodium, serum 139 mmol/L 674-084 9695/10/31 potassium, serum 4.5 mmol/L 3.5-5.2 chloride, serum 102 mmol/L 98-107 carbon dioxide, venous blood 30.3 mmol/L 21.0-32 .0 blood glucose 84 mg/dL 65-110 urea nitrogen, blood 13 mg/dL 7-18 creatinine, serum 0.80 mg/dL 0.60-1.30 alanine aminotransferase (SGPT), serum 24 U/L 12-78 aspartate aminotransferase (SGOT), serum 22 U/L 15-37 alkaline phosphatase, serum 83 U/L 50-136 calcium, serum 9.2 mg/dL 8.5-10.1 bilirubin, serum, total 0.50 mg/dL 0.00-1.00 hemoglobin A1C, blood, as % of total hemoglobin 5.9 % 4.3-6.0 Lab Report: Comp. Metabolic Panel, HGBA1 C, CBC - Hematology leukocyte count, blood 6.8 10^3/MM^3 10*3/mm3 4.6-10.2 erythrocyte (RBC) count 4.97 10^6/MM^3 10*6/mm3 4.04-5.4 8 hemoglobin, blood 15.1 g/dL 12.0-16.0 hematocrit, blood 46.0 % 36.0-46.0 mean corpuscular volume, RBC 92 fL 80-97 mean corpuscular hemoglobin, RBC 30.4 pg 27. 0-31.2 mean corpuscular hemoglobin concentration, RBC 32.9 G/DL % 31.8-35.4 red blood cell distribution width 15.7 % 11 .6-14.8 platelet count 346 10^3/MM^3 10*3/mm3 142-424 Office Visit: cellulitis - Chemistry cholesterol, target level 200 mg/dL triglyceride, target level 200 mg/dL HDL cholesterol, serum, target level 35 mg/dL LDL target level 100 mg/dL Encounters Code Encounter Date Provider Facility CPT-27520 Level 3 Est. Patient 12:56:37 CDT Bertrand marquez [facility] CPT-84474 Level 3 Est. Patient 19:12:03 CDT Yoli tolbert MD [facility]-14628 Level 3 Est. Patient 14:36:01 CDT Yoli tolbert MD [facility] CPT-08901 Level 2 Est. Patient 08:00:22 CDT Jcarlos cd MD [facility] CPT-16278 Level 3 Est. Patient 19:06:55 CDT Bertrand marquez [facility] CPT-11521 Level 3 Est. Patient 10:08:23 RETAIL DISTRICT MANAGER Bertrand marquez [facility] CPT-89479 Level 3 Est. Patient 16:37:54 RETAIL DISTRICT MANAGER Bertrand marquez [facility] CPT-99287 Level 3 Est. Patient 11:31:59 RETAIL DISTRICT MANAGER Bertrand marquez [facility] CPT-16129 Level 3 Est. Patient 10:20:08 CDT Adolfo villasenor [facility] CPT-82491 Level 3 Est. Patient 13:45:20 CDT Sanket buckley [facility] CPT-96692 Level 3 Est. Patient 12:51:06 CDT Adolfo villasenor [facility] CPT-29543 Level 3 Est. Patient 11:22:51 RETAIL DISTRICT MANAGER Yoli tolbert MD [facility]-97583 Level 3 Est. Patient 13:33:19 CDT Bertrand marquez [facility] Procedures Code Procedure Name Date Entry Date Standard Desc ription CPT-48101 Knee comp 4/> V 11:58:06 RETAIL DISTRICT MANAGER
--- OUTSIDE RECORDS SUMMARY | 2019-11-13 10:18 | XMS REPORT | Clinical Summary ---
Author Author Admin, Enrique Adamson Organization [facility] Address Unknown Phone Unavailable Allergies, Adverse Reactions, [...] NDC Status Provider Patient Instruction VITAMIN D3 25534 UNIT ORAL CAPSULE 1 pill Week x 4 mo [facility] for vitamin D deficiency/osteoporosis CHOLECALCIFEROL 54258497990 N o Longer Active Laylaana cristina Mcmullen Active BENZONATATE 200 MG ORAL CAPSULE 1 three times a day as neede d for cough BENZONATATE 47910786573 Active Ike Deluna MD Active ZITHROMAX Z-MARTIN 250 MG ORAL TABLET 2 today and then 1 daily for 4 days AZITHROMYCIN 38681570376 Active Ike Deluna MD Active ADDERALL 10 MG ORAL TABLET 1 tab twice daily AMPHETAMINE-DEXTROAMPHETAMINE 50040578322 Active Ike Deluna MD Active BACTROBAN 2 % EXTERNAL CREAM Apply to affected area BID for up to 10 days MUPIROCIN CALCIUM 73144304037 No Longer Active Ike Deluna MD Active CIPRO 500 MG ORAL TABLET 1 tablet by mouth twice daily CIPROFLOXACIN HCL 17955233313 No Longer Active Adriana Bender LPN Active AUGMENTIN 875-125 MG ORAL TABLET 1 po BID x 10 days 18/04/06 AMOXICILLIN-POT CLAVULANATE 32769984275 No Longer Active Adriana Bender LPN Active MODAFINIL 200 MG ORAL TABLET Take 1/2 tab po in the am and 1 /2 tab po at noon MODAFINIL 28565617580 Active Bertrand Patel DO Ac tive CYCLOBENZAPRINE HCL 10 MG ORAL TABLET Take 1 tab TID PRN for mus triston pain CYCLOBENZAPRINE HCL 51102199899 No Longer Active Bertrand Patel DO Active TESBYRON PERLES 100 MG ORAL CAPSULE 1 tablet by mouth 3 times da juan pablo BENZONATATE 76538923147 No Longer Active Bertrand Patel DO Ac tive NEBULIZER use as directed NEBULIZERS 81987023777 No Longer Active Bertrand Patel DO Active ALBUTEROL SULFATE (2.5 MG/3ML) 0.083% INHALATION NEBUL IZATION SOLUTION one vial per nebulizer every 4-6 hours as needed ALBUTERO L SULFATE 73365163928 No Longer Active Bertrand Patel DO Active SYMBICORT 160-4.5 MCG/ACT INHALATION AEROSOL 2 puffs BID 9 BUDESONIDE-FORMOTEROL FUMARATE 94736152354 No Longer Active Bertrand Patel DO Active PREDNISONE 20 MG ORAL TABLET take 3 tabs daily for 3 d ays, 2 tabs daily for 3 days, 1 tab daily for 3 days, 1/2 tab daily for 3 days 08/02 PREDNISONE 94329396073 No Longer Active Silvia Arnold APRN Acti ve AZITHROMYCIN 250 MG ORAL TABLET Take 2 tabs po today then 1 tab po daily AZITHROMYCIN 74153411589 No Longer Active Silvia Jorge leslye TOVARN Active AUGMENTIN 875-125 MG ORAL TABLET 1 po BID x 10 days 20 19/07/13 AMOXICILLIN-POT CLAVULANATE 86832826103 No Longer Active Adriana Bender LPN Active CHEWABLE CALCIUM 500-200-40 MG-UNT-MCG ORAL TABLET CHEWABLE 1 chew tab bid CALCIUM-VITAMIN D-VITAMIN K 75839740962 Active Silvia nunes APRN Active EQ COMPLETE MULTIVIT ADULT 50+ ORAL TABLET 1 tab po bid MULTIPLE VITAMINS-MINERALS 41317413454 Active Silvia Arnold APRN Act jairo HYDROCODONE-ACETAMINOPHEN 7.5-325 MG ORAL TABLET TAKE ONE TAB EVERY 6 HOURS BY MOUTH NEEDED FOR PAIN HYDROCODONE-ACETAMINOPHEN 004 31856559 Active Adele Feldman LPN Active LORTAB 7.5-500 MG ORAL TABLET take one po Q6 hours 201 09/12/01 HYDROCODONE-ACETAMINOPHEN 04892096617 No Longer Active Nirmal Robbins RN Active [facility] MELATONIN 5-10 MG ORAL TABLET EXTENDED RELEASE Jair e one by mouth daily at bedtime MELATONIN-PYRIDOXINE 92803800899 No Longer Acti ve Bertrand Patel DO Active VITAMIN E 200 UNIT ORAL CAPSULE 1 cap po qd VITAM IN E 92072896490 No Longer Active Bertrand Patel DO Active B-12 1000 MCG ORAL CAPSULE 1 tab daily CYANOCOB ALAMIN 46665689369 No Longer Active Bertrand W Jorge DO Active METFORMIN HCL 500 MG ORAL TABLET 1 bid METFOR MIN HCL 54202209853 No Longer Active Bertrand Patel DO Active FUROSEMIDE 20 MG ORAL TABLET 1 pill by mouth daily if needed for edema FUROSEMIDE 10537359572 No Longer Active Bertrand Patel DO Active PRAVASTATIN SODIUM 20 MG ORAL TABLET 1 tablet by mouth daily at bedtime PRAVASTATIN SODIUM 13609356439 No Longer Active Bertrand Patel DO Active AUGMENTIN 875-125 MG ORAL TABLET 1 pill by mouth twice daily 201 09/10/00 AMOXICILLIN-POT CLAVULANATE 16351634134 No Longer Active Yoli Mercado MD PhD Active LEVAQUIN 500 MG ORAL TABLET 1 pill by mouth daily 2013 LEVOFLOXACIN 11503233223 No Longer Active Yoli Mercado MD PhD Acti ve AMLODIPINE BESYLATE 5 MG ORAL TABLET 1 tablet by mouth daily for blood pressure AMLODIPINE BESYLATE 33622411786 Active Layla Mcmullen Active MICARDIS 80 MG ORAL TABLET 1 tablet daily for blood pressure 07/30 TELMISARTAN 85746174921 Active Darlyn Monzon Active MICARDIS HCT 80-12.5 MG ORAL TABLET 1 qd TELMISARTAN-HCTZ 73435987236 No Longer Active Bertrand Patel DO Active CINNAMON ALPHA LIPOIC AC CMPLX CAPSULE by mouth twice a day in AM by mouth twice a day in PM ALPHA LIPOIC CFBP-VL-NISNIZHD CA PS 53260036021 No Longer Active Bertrand Patel DO Active AZITHROMYCIN 500 MG INTRAVENOUS SOLUTION RECONSTITUTED 1 po q da y AZITHROMYCIN 21682338991 No Longer Active Bertrand Patel DO A ctive CYMBALTA 30 MG ORAL CAPSULE DELAYED RELEASE PARTICLES 1 cap by mouth daily DULOXETINE HCL 90278314293 No Longer Active Bertrand marquez DO Active CYMBALTA 60 MG ORAL CAPSULE DELAYED RELEASE PARTICLES 1 cap by mouth daily DULOXETINE HCL 69168367610 Active Darlyn Monzon Active WELLBUTRIN 75 MG ORAL TABLET 2 times daily BUPR OPION HCL 92648130246 No Longer Active Bertrand Patel DO Active PROAIR HFA 108 (90 Base) MCG/ACT INHALATION AEROSOL SO LUTION take one to two puffs po Q4-6 hour prn cough and shortness of breath ALBUTEROL SULFATE 45355787010 Active Silvia Arnold LITIGATION ASSOCIATE Active AZITHROMYCIN 250 MG ORAL TABLET take 2 po today then take 1 po days 2-5 AZITHROMYCIN 98241270542 No Longer Active Adolfo OSORIO Active PERMETHRIN 5 % EXTERNAL CREAM apply neck to toes tonig ht and then rinse off in morning. repeat at 7 days PERMETHRIN 74915559892 No Longer Active Adolfo OSORIO Active AMOXICILLIN 500 MG ORAL CAPSULE 2 po BID x 10 days 201 07/15/00 AMOXICILLIN 39284294260 No Longer Active Yoli Mercado MD PhD Acti ve ALPRAZOLAM 0.5 MG ORAL TABLET 1 tab by mouth tid ALPRAZOLAM 72689294330 Active Nitza Mullins LPN Active INSUPEN ULTRAFIN 31G X 6 MM USE DIRECTED INSULIN PEN NEEDLE 65517336256 No Longer Active Bertrand Patel DO Active TRANSDERM-SCOP (1.5 MG) 1 MG/3DAYS TRANSDERMAL PATCH 7 2 HOUR 1 patch applied behind ear q 3 day SCOPOLAMINE BASE 84317589288 No Lo nger Active Bertrand Patel DO Active MACRODANTIN 100 MG ORAL CAPSULE one p.o. b.i.d. x2 weeks NITROFURANTOIN MACROCRYSTAL 78978982234 No Longer Active Bertrand Patel DO Active MACRODANTIN 100 MG ORAL CAPSULE one p.o. b.i.d. x2 weeks MACRODANTIN 100 MG ORAL CAPSULE 8729356 NITROFURANTOIN MACROCRYSTAL Inactive TRANSDERM-SCOP (1.5 MG) 1 [...] days PERMETHRIN 5 % EXTER NAL CREAM 191767 PERMETHRIN Inactive WELLBUTRIN 75 MG ORAL TABLET 2 times daily WELLBUTRIN 75 MG ORAL TABLET 848442 BUPROPION HCL Inactive CYMBALTA 30 MG ORAL CAPSULE DELAYED RELEASE PARTICLES 1 cap by mouth daily CYMBALTA 30 MG ORAL CAPSULE DELAYED RELE ASE PARTICLES 956970 DULOXETINE HCL Inactive AZITHROMYCIN 500 MG INTRAVENOUS SOLUTION RECONSTITUTED 1 po q da y AZITHROMYCIN 500 MG INTRAVENOUS SOLUTION RECONSTITUTED 09558 126373 AZITHROMYCIN Inactive CINNAMON ALPHA LIPOIC AC CMPLX CAPSULE by mouth twice a day in AM by mouth twice a day in PM CINNAMON ALPHA LIPOIC AC CMPLX CAPSULE ALPHA LIPOIC AHDS-FA-ROZPAWHR CAPS Inactive MICARDIS HCT 80-12.5 MG ORAL TABLET 1 qd 07/30 MICARDIS HCT 80-12.5 MG ORAL TABLET 531984 TELMISARTAN-HCTZ Inactive PRAVASTATIN SODIUM 20 MG ORAL TABLET 1 tablet by mouth daily at bedtime PRAVASTATIN SODIUM 20 MG ORAL TABLET 944333 PRAVASTATIN SODIUM Inactive FUROSEMIDE 20 MG ORAL TABLET 1 pill by mouth daily if needed for edema FUROSEMIDE 20 MG ORAL TABLET 370633 FUROSEMIDE Inactive METFORMIN HCL 500 MG ORAL TABLET 1 bid METFORMIN HCL 500 MG ORAL TABLET 888549 METFORMIN HCL Inactive B-12 1000 MCG ORAL CAPSULE 1 tab daily B -12 1000 MCG ORAL CAPSULE CYANOCOBALAMIN Inactive VITAMIN E 200 UNIT ORAL CAPSULE 1 cap po qd 1 VITAMIN E 200 UNIT ORAL CAPSULE 8672044 VITAMIN E Inactive [facility] MELATONIN 5-10 MG ORAL TABLET EXTENDED RELEASE Jair e one by mouth daily at bedtime [facility] MELATONIN 5-10 M G ORAL TABLET EXTENDED RELEASE MELATONIN-PYRIDOXINE Inactive LORTAB 7.5-500 MG ORAL TABLET take one po Q6 hours 201 09/12/01 LORTAB 7.5-500 MG ORAL TABLET 805165 HYDROCODONE-ACETAMINOPHEN Inactive AZITHROMYCIN 250 MG ORAL TABLET Take 2 tabs po today then 1 tab po daily AZITHROMYCIN 250 MG ORAL TABLET 055855 AZITHROMY BERNARDO Inactive SYMBICORT 160-4.5 MCG/ACT INHALATION AEROSOL 2 puffs BID 9 SYMBICORT 160-4.5 MCG/ACT INHALATION AEROSOL BUDESONIDE-FORM OTEROL FUMARATE Inactive ALBUTEROL SULFATE (2.5 MG/3ML) 0.083% INHALATION NEBUL IZATION SOLUTION one vial per nebulizer every 4-6 hours as needed ALBUTEROL SULFATE (2.5 MG/3ML) 0.083% INHALATION NEBULIZATION SOLUTION 634930 ALBUTER OL SULFATE Inactive NEBULIZER use as directed NEBULIZER NEBULI ZERS Inactive TESSALON PERLES 100 MG ORAL CAPSULE 1 tablet by mouth 3 times da juan pablo TESSALON PERLES 100 MG ORAL CAPSULE 805891 BENZONATATE Inactive CYCLOBENZAPRINE HCL 10 MG ORAL TABLET Take 1 tab TID PRN for mus triston pain CYCLOBENZAPRINE HCL 10 MG ORAL TABLET 703769 CYCLOBENZA ANUJA HCL Inactive AUGMENTIN 875-125 MG ORAL TABLET 1 po BID x 10 days 20 18/04/06 AUGMENTIN 875-125 MG ORAL TABLET 423439 AMOXICILLIN-POT CLAVULANATE Inactive BACTROBAN 2 % EXTERNAL CREAM Apply to affected area BID for up to 10 days BACTROBAN 2 % EXTERNAL CREAM 538260 MUPIROCIN CA LCIUM Inactive VITAMIN D3 65081 UNIT ORAL CAPSULE 1 pill Week x 4 mo nths for vitamin D deficiency/osteoporosis VITAMIN D3 66878 UNIT ORAL CAPSULE CHOLECALCIFEROL Inactive AMOXICILLIN 500 MG ORAL CAPSULE 2 po BID x 10 days 201 07/15/00 AMOXICILLIN 500 MG ORAL CAPSULE 714104 AMOXICILLIN Inactive AZITHROMYCIN 250 MG ORAL TABLET take 2 po today then take 1 po days 2-5 AZITHROMYCIN 250 MG ORAL TABLET 183023 AZITHROMY BERNARDO Inactive LEVAQUIN 500 MG ORAL TABLET 1 pill by mouth daily 2013 LEVAQUIN 500 MG ORAL TABLET 332231 LEVOFLOXACIN Inactive AUGMENTIN 875-125 MG ORAL TABLET 1 pill by mouth twice daily 201 09/10/00 AUGMENTIN 875-125 MG ORAL TABLET 891063 AMOXICILLIN-POT CLAVULANATE Inactive AUGMENTIN 875-125 MG ORAL TABLET 1 po BID x 10 days 19/07/13 AUGMENTIN 875-125 MG ORAL TABLET 677704 AMOXICILLIN-POT CLAVULANATE Inactive PREDNISONE 20 MG ORAL TABLET take 3 tabs daily for 3 d ays, 2 tabs daily for 3 days, 1 tab daily for 3 days, 1/2 tab daily for 3 days 08/02 PREDNISONE 20 MG ORAL TABLET 957826 PREDNISONE Inactive CIPRO 500 MG ORAL TABLET 1 tablet by mouth twice daily CIPRO 500 MG ORAL TABLET 651500 CIPROFLOXACIN HCL Inactive Vital Signs Date Name [...] 0-19 Encounters Code Encounter Date Provider Facility CPT-97904 Level 4 Est. Patient 12:31:54 CDT Bertrand marquez [facility] CPT-74131 Level 3 Est. Patient 11:27:00 ASSISTANT DIRECTOR OF ADMISSIONS Ike Deluna MD [facility]-39766 Level 3 Est. Patient 08:50:57 ASSISTANT DIRECTOR OF ADMISSIONS Dangelo LITIGATION ASSOCIATE [facility]-85120 Level 3 Est. Patient 10:04:13 CDT Bertrand marquez [facility] CPT-59232 Level 4 Est. Patient 16:02:10 ASSISTANT DIRECTOR OF ADMISSIONS Dangelo [facility] CPT-92824 Level 3 Est. Patient 13:04:54 ASSISTANT DIRECTOR OF ADMISSIONS Dangelo [facility] CPT-13254 Level 3 Est. Patient 12:56:37 CDT Bertrand marquez [facility] CPT-55944 Level 3 Est. Patient 19:12:03 CDT Yoli tolbert MD PhD [facility] CPT-96763 Level 3 Est. Patient 14:36:01 CDT Yoli tolbert MD PhD [facility] CPT-83848 Level 2 Est. Patient 08:00:22 CDT Jcarlos cd MD [facility] CPT-74318 Level 3 Est. Patient 19:06:55 CDT Bertrand marquez [facility] CPT-59498 Level 3 Est. Patient 10:08:23 ASSISTANT DIRECTOR OF ADMISSIONS Bertrand marquez [facility] CPT-48643 Level 3 Est. Patient 16:37:54 ASSISTANT DIRECTOR OF ADMISSIONS Bertrand marquez [facility] CPT-03641 Level 3 Est. Patient 11:31:59 ASSISTANT DIRECTOR OF ADMISSIONS Bertrand marquez [facility] CPT-12194 Level 3 Est. Patient 10:20:08 CDT Adolfo villasenor [facility] CPT-35922 Level 3 Est. Patient 13:45:20 CDT Sanket buckley [facility] CPT-35715 Level 3 Est. Patient 12:51:06 CDT Adolfo villasenor [facility] CPT-15430 Level 3 Est. Patient 11:22:51 ASSISTANT DIRECTOR OF ADMISSIONS Yoli tolbert MD PhD [facility] CPT-65316 Level 3 Est. Patient 13:33:19 CDT Bertrand marquez [facility] Procedures Code Procedure Name Date Entry Date Standard Desc ription CPT-25688 Wound Culture - LAB USE ONLY 15:45:25 CDT 2 CPT-01370 Venipuncture Draw Fee 10:23:01 CDT CPT-J0696 Rocephin 1000 mg (Ceftriaxone) 16:20:30 ASSISTANT DIRECTOR OF ADMISSIONS CPT-13174 Abx/Therapy Injection 16:20:29 ASSISTANT DIRECTOR OF ADMISSIONS CPT-J0696 Rocephin 1gm Inj Solr 15:51:59 ASSISTANT DIRECTOR OF ADMISSIONS CPT-43500 Chest 2V Frontal and Lat 15:20:28 ASSISTANT DIRECTOR OF ADMISSIONS 07/22 CPT-07991 Breathing Tx 14:51:55 ASSISTANT DIRECTOR OF ADMISSIONS CPT-44827 Breathing Tx 09:57:16 ASSISTANT DIRECTOR OF ADMISSIONS CPT-02897 Knee comp 4/> V 11:58:06 ASSISTANT DIRECTOR OF ADMISSIONS
--- OUTSIDE RECORDS SUMMARY | 2019-11-13 10:19 | XMS REPORT | Clinical Summary ---
Author Author Admin, Enrique Adamson Organization [employer] Address Unknown Phone Unavailable Allergies, Adverse Reactions, [...] NDC Status Provider Patient Instruction VITAMIN D3 38789 UNIT CAPS 1 pill Week x 4 months for vitamin D deficiency/osteoporosis CHOLECALCIFEROL 21205870309 Active Darlyn Monzon Active BENZONATATE 200 MG ORAL CAPS 1 three times a day as needed for c ough BENZONATATE 74627969588 Active Ike Deluna MD Acti ve ZITHROMAX Z-MARTIN 250 MG TABS 2 today and then 1 daily for 4 days 201 12/01/06 AZITHROMYCIN 16306034117 Active Ike Deluna MD Active ADDERALL 10 MG ORAL TABS 1 tab twice daily AMPHETAMINE-DEXTROAMPHETAMINE 66569598432 Active Ike Deluna MD Active BACTROBAN 2 % CREAM Apply to affected area BID for up to 10 days MUPIROCIN CALCIUM 67235266738 No Longer Active Ike Deluna MD Active CIPRO 500 MG TAB 1 tablet by mouth twice daily CIPROFLOXACIN HCL 12497657926 No Longer Active Adriana Bender LPN Active AUGMENTIN 875-125 MG TAB 1 po BID x 10 days AMOXICILLIN- POT CLAVULANATE 14937572909 No Longer Active Adriana Bender LPN Active MODAFINIL 200 MG ORAL TABS Take 1/2 tab po in the am and 1/2 tab po at noon MODAFINIL 04725472193 Active Darlyn Monzon A ctive CYCLOBENZAPRINE HCL 10 MG TABS Take 1 tab TID PRN for muscle pain CYCLOBENZAPRINE HCL 44067777845 No Longer Active Bertrand Patel DO Ac tive TESSALON PERLES 100 MG CAP 1 tablet by mouth 3 times daily 07/07 BENZONATATE 75324484236 No Longer Active Berrtand Patel DO Ac tive NEBULIZER MISC use as directed NEBULIZERS 029077 57192 No Longer Active Bertrand Patel DO Active ALBUTEROL SULFATE 0.083 % NEBU SOLN one vial per nebul izer every 4-6 hours as needed ALBUTEROL SULFATE 30505056663 No Longer Active Bertrand Patel DO Active SYMBICORT 160-4.5 MCG/ACT AERO 2 puffs BID BUDESONIDE- FORMOTEROL FUMARATE 00758643476 No Longer Active Bertrand Patel DO Ac tive PREDNISONE 20 MG TAB take 3 tabs daily for 3 days , 2 tabs daily for 3 days, 1 tab daily for 3 days, 1/2 tab daily for 3 days P REDNISONE 05748374802 No Longer Active Silvia Arnold APRN Active AZITHROMYCIN 250 MG ORAL TABS Take 2 tabs po today then 1 ta b po daily AZITHROMYCIN 13465405789 No Longer Active Silvia Jorge leslye TOVARN Active AUGMENTIN 875-125 MG TAB 1 po BID x 10 days AMOXICILLIN- POT CLAVULANATE 04678946485 No Longer Active Adriana Bender LPN Active CHEWABLE CALCIUM 500-200-40 MG-UNT-MCG ORAL CHEW 1 chew tab bid 201 11/03/03 CALCIUM-VITAMIN D-VITAMIN K 64453732520 Active Silvia Arnold APRN Active EQ COMPLETE MULTIVIT ADULT 50+ ORAL TABS 1 tab po bid MULTIPLE VITAMINS-MINERALS 42502945805 Active Silvia Arnold APRN Act jairo HYDROCODONE-ACETAMINOPHEN 7.5-325 MG TABS TAKE ONE TAB EVERY 6 HOURS BY MOUTH NEEDED FOR PAIN HYDROCODONE-ACETAMINOPHEN 68544613764 Acti ve Bertrand Patel DO Active LORTAB 7.5-500 MG TABS take one po Q6 hours HYDROCODONE-ACETAMINOPHEN No Longer Active Nirmal Robbins RN Active [facility] MELATON[facility] 5-10 MG CR-TABS Take one by mouth daily at bedtime MELATONIN-PYRIDOXINE 00779612847 No Longer Active Bertrand Patel DO Active VITAMIN E 200 UNIT CAPS 1 cap po qd VITAMIN E 316 45066392 No Longer Active Bertrand Patel DO Active B-12 1000 MCG CAPS 1 tab daily CYANOCOBALAMIN 31 265586974 No Longer Active Bertrand Patel DO Active METFORMIN HCL 500 MG TABS 1 bid METFORMIN HCL 20541108553 No Longer Active Bertrand Patel DO Active FUROSEMIDE 20 MG TABS 1 pill by mouth daily if needed for edema FUROSEMIDE 02758101394 No Longer Active Bertrand Patel DO Act jairo PRAVASTATIN SODIUM 20 MG TABS 1 tablet by mouth daily at bedtime PRAVASTATIN SODIUM 07719021923 No Longer Active Bertrand Patel DO Active AUGMENTIN 875-125 MG TABS 1 pill by mouth twice daily AMOXICILLIN-POT CLAVULANATE 18800423151 No Longer Active Yoli Mercado MD PhD Active LEVAQUIN 500 MG TABS 1 pill by mouth daily LEVO FLOXACIN 58352501464 No Longer Active Yoli Mercado MD PhD Active AMLODIPINE BESYLATE 5 MG TABS 1 tablet by mouth daily for bl ood pressure AMLODIPINE BESYLATE 63606809521 Active Darlyn Monzon Active MICARDIS 80 MG TABS 1 tablet daily for blood pressure TELMISARTAN 77216505706 Active Darlyn Monzon Active MICARDIS HCT 80-12.5 MG TABS 1 qd TELMISARTA N-HCTZ 98602285486 No Longer Active Bertrand Patel DO Active CINNAMON ALPHA LIPOIC AC CMPLX CAPS by mouth twice a d ay in AM by mouth twice a day in PM ALPHA LIPOIC FRRR-HY-TTKOKOPH CAPS 966250 53016 No Longer Active Bertrand Patel DO Active AZITHROMYCIN 500 MG SOLR 1 po q day AZITHROMYCI N 75930714745 No Longer Active Bertrand Patel DO Active CYMBALTA 30 MG CPEP 1 cap by mouth daily DULOXE CATHI HCL 17816665985 No Longer Active Bertrand Patel DO Active CYMBALTA 60 MG CPEP 1 cap by mouth daily DULOXE CATHI HCL 92678823023 Active Darlyn Monzon Active WELLBUTRIN 75 MG TABS 2 times daily BUPROPION H CL 12374615021 No Longer Active Bertrand W Jorge DO Active PROAIR HFA 108 (90 BASE) MCG/ACT AERS take one to two puffs po Q4-6 hour prn cough and shortness of breath ALBUTEROL SULFATE 8733889351 2 Active Silvia Arnold BIOINFORMATICS SPECIALIST Active AZITHROMYCIN 250 MG TABS take 2 po today then take 1 po days 2-5 AZITHROMYCIN 33222972041 No Longer Active Adolfo OSORIO Active PERMETHRIN 5 % CREA apply neck to toes tonight a nd then rinse off in morning. repeat at 7 days PERMETHRIN 36857920542 No Longer Active Adolfo OSORIO Active AMOXICILLIN 500 MG CAPS 2 po BID x 10 days AMOX ICILLIN 48267231443 No Longer Active Yoli Mercado MD PhD Active ALPRAZOLAM 0.5 MG TAB 1 tab by mouth tid ALPRAZOL AM 54187065818 Active Nitza Mullins PHOTOGRAPHER LITHOGRAPHIC Active INSUPEN ULTRAFIN 31G X 6 MM MISC USE DIRECTED 03/04 INSULIN PEN NEEDLE 75532337407 No Longer Active Bertrand Patel DO Active TRANSDERM-SCOP 1.5 MG PT72 1 patch applied behind ear q 3 day 20 04/13/28 SCOPOLAMINE BASE 78887115569 No Longer Active Bertrand Patel DO Active MACRODANTIN 100 MG CAPS one p.o. b.i.d. x2 weeks 03/04 NITROFURANTOIN MACROCRYSTAL 08040001499 No Longer Active Bertrand Patel DO Active MACRODANTIN 100 MG CAPS one p.o. b.i.d. x2 weeks 03/04 MACRODANTIN 100 MG CAPS 4492548 NITROFURANTOIN MACROCRYSTAL Inactive TRANSDERM-SCOP 1.5 MG PT72 [...] at 7 days PERMETHRIN 5 % CREA 869233 PERMETHRIN Inactive WELLBUTRIN 75 MG TABS 2 times daily WELLBUTRIN 75 MG TABS 753704 BUPROPION HCL Inactive CYMBALTA 30 MG CPEP 1 cap by mouth daily CYMBALTA 30 MG CPEP 921224 DULOXETINE HCL Inactive AZITHROMYCIN 500 MG SOLR 1 po q day ALTA THROMYCIN 500 MG SOLR 00938957642 AZITHROMYCIN Inactive CINNAMON ALPHA LIPOIC AC CMPLX CAPS by mouth twice a d ay in AM by mouth twice a day in PM CINNAMON ALPHA LIPOIC AC CMPLX CAPS ALPHA LIPOIC [id number] CAPS Inactive MICARDIS HCT 80-12.5 MG TABS 1 qd MICARDI S HCT 80-12.5 MG TABS 494160 TELMISARTAN-HCTZ Inactive PRAVASTATIN SODIUM 20 MG TABS 1 tablet by mouth daily at bedtime PRAVASTATIN SODIUM 20 MG TABS 459813 PRAVASTATIN SODIUM Inactive FUROSEMIDE 20 MG TABS 1 pill by mouth daily if needed for edema FUROSEMIDE 20 MG TABS 966204 FUROSEMIDE Inactive METFORMIN HCL 500 MG TABS 1 bid METFORMIN HCL 500 MG TABS 608904 METFORMIN HCL Inactive B-12 1000 MCG CAPS 1 tab daily B-12 1000 MCG CAP S CYANOCOBALAMIN Inactive VITAMIN E 200 UNIT CAPS 1 cap po qd VITAMIN E 2 00 UNIT CAPS 2206390 VITAMIN E Inactive [facility] MELATONIN 5-10 MG CR-TABS Take one by mouth daily at bedtime [facility] MELATONIN 5-10 MG CR-TABS MELATONIN-PYRIDOXI NE Inactive LORTAB 7.5-500 MG TABS take one po Q6 hours LORTAB 7.5-500 MG TABS 814420 HYDROCODONE-ACETAMINOPHEN Inactive AZITHROMYCIN 250 MG ORAL TABS Take 2 tabs po today then 1 ta b po daily AZITHROMYCIN 250 MG ORAL TABS 223477 AZITHROMYCI N Inactive SYMBICORT 160-4.5 MCG/ACT AERO 2 puffs BID SYMBICORT 160- 4.5 MCG/ACT AERO BUDESONIDE-FORMOTEROL FUMARATE Inactive ALBUTEROL SULFATE 0.083 % NEBU SOLN one vial per nebul izer every 4-6 hours as needed ALBUTEROL SULFATE 0.083 % NEBU SOLN 81667 8 ALBUTEROL SULFATE Inactive NEBULIZER MISC use as directed NEBULIZER MISC NEBULIZERS Inactive TESSALON PERLES 100 MG CAP 1 tablet by mouth 3 times daily 07/07 TESSALON PERLES 100 MG CAP 561726 BENZONATATE Inact jairo CYCLOBENZAPRINE HCL 10 MG TABS Take 1 tab TID PRN for muscle pain CYCLOBENZAPRINE HCL 10 MG TABS 880873 CYCLOBENZAPRINE HCL Inactive AUGMENTIN 875-125 MG TAB 1 po BID x 10 days AUGMENTIN 875- 125 MG TAB 214245 AMOXICILLIN-POT CLAVULANATE Inactive BACTROBAN 2 % CREAM Apply to affected area BID for up to 10 days BACTROBAN 2 % CREAM 125326 MUPIROCIN CALCIUM Inactive AMOXICILLIN 500 MG CAPS 2 po BID x 10 days AMOXICILLIN 500 MG CAPS 457727 AMOXICILLIN Inactive AZITHROMYCIN 250 MG TABS take 2 po today then take 1 po days 2-5 AZITHROMYCIN 250 MG TABS 882643 AZITHROMYCIN Inactiv e LEVAQUIN 500 MG TABS 1 pill by mouth daily LEVAQUIN 500 MG TABS 109773 LEVOFLOXACIN Inactive AUGMENTIN 875-125 MG TABS 1 pill by mouth twice daily AUGMENTIN 875-125 MG TABS 534706 AMOXICILLIN-POT CLAVULANATE Inacti ve AUGMENTIN 875-125 MG TAB 1 po BID x 10 days AUGMENTIN 875- 125 MG TAB 871845 AMOXICILLIN-POT CLAVULANATE Inactive PREDNISONE 20 MG TAB take 3 tabs daily for 3 days , 2 tabs daily for 3 days, 1 tab daily for 3 days, 1/2 tab daily for 3 days PREDNISONE 20 MG TAB 530056 PREDNISONE Inactive CIPRO 500 MG TAB 1 tablet by mouth twice daily CIPRO 500 MG TAB 227296 CIPROFLOXACIN HCL Inactive Vital Signs Date Name [...] 0-19 Encounters Code Encounter Date Provider Facility CPT-75618 Level 4 Est. Patient 12:31:54 CDT Bertrand marquez [facility] CPT-82572 Level 3 Est. 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 Patient 08:50:57 LEASE PURCHASE TRUCK DRIVER Dangelo BIOINFORMATICS SPECIALIST [facility]-79368 Level 3 Est. Patient 10:04:13 CDT Bertrand marquez [facility] CPT-31713 Level 4 Est. Patient 16:02:10 LEASE PURCHASE TRUCK DRIVER Dangelo BIOINFORMATICS SPECIALIST [facility]-31093 Level 3 Est. Patient 13:04:54 LEASE PURCHASE TRUCK DRIVER Dangleo [facility]-37439 Level 3 Est. Patient 12:56:37 CDT Bertrand marquez [facility] CPT-63336 Level 3 Est. Patient 19:12:03 CDT Yoli tolbert MD [facility] CPT-27538 Level 3 Est. Patient 14:36:01 CDT Yoli tolbert MD [facility] CPT-86302 Level 2 Est. Patient 08:00:22 CDT Jcarlos dc MD [facility]-48599 Level 3 Est. Patient 19:06:55 CDT Bertrand marquez [facility] CPT-32453 Level 3 Est. Patient 10:08:23 LEASE PURCHASE TRUCK DRIVER Bertrand marquez [facility]-54562 Level 3 Est. Patient 16:37:54 LEASE PURCHASE TRUCK DRIVER Bertrand marquez [facility] CPT-48748 Level 3 Est. Patient 11:31:59 LEASE PURCHASE TRUCK DRIVER Bertrand marquez [facility] CPT-47049 Level 3 Est. Patient 10:20:08 CDT Adolfo villasenor [facility] CPT-93621 Level 3 Est. Patient 13:45:20 CDT Sanket Pham ina [facility] CPT-33150 Level 3 Est. Patient 12:51:06 CDT Gennadot Jerzy villasenor [facility] CPT-57267 Level 3 Est. Patient 11:22:51 LEASE PURCHASE TRUCK DRIVER Yoli tolbert MD PhD [facility] CPT-26679 Level 3 Est. Patient 13:33:19 CDT Bertrand marquez [facility] Procedures Code Procedure Name Date Entry Date Standard Desc ription CPT-48197 Wound Culture - LAB USE ONLY 15:45:25 CDT 2 CPT-43516 Venipuncture Draw Fee 10:23:01 CDT CPT-J0696 Rocephin 1000 mg (Ceftriaxone) 16:20:30 LEASE PURCHASE TRUCK DRIVER CPT-78583 Abx/Therapy Injection 16:20:29 LEASE PURCHASE TRUCK DRIVER CPT-J0696 Rocephin 1gm Inj Solr 15:51:59 LEASE PURCHASE TRUCK DRIVER CPT-29167 Chest 2V Frontal and Lat 15:20:28 LEASE PURCHASE TRUCK DRIVER 07/22 CPT-66443 Breathing Tx 14:51:55 LEASE PURCHASE TRUCK DRIVER CPT-48764 Breathing Tx 09:57:16 LEASE PURCHASE TRUCK DRIVER CPT-88974 Knee comp 4/> V 11:58:06 LEASE PURCHASE TRUCK DRIVER
--- OUTSIDE RECORDS SUMMARY | 2019-11-13 10:19 | XMS REPORT | Clinical Summary ---
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 Fatigue 780.79 Active Silvia Arnold [...] Status Provider Patient Instruction PREDNISONE 20 MG TAB take 3 tabs daily for 3 days , 2 tabs daily for 3 days, 1 tab daily for 3 days, 1/2 tab daily for 3 days P REDNISONE 55740030832 Active Silvia Arnold APRN Active SYMBICORT 160-4.5 MCG/ACT AERO 2 puffs BID BUDESONIDE-FORMOTEROL FUMARATE 34740807121 Active Silvia Arnold APRN Active ALBUTEROL SULFATE 0.083 % NEBU SOLN one vial per nebul izer every 4-6 hours as needed ALBUTEROL SULFATE 94431687270 Active Silvia Arnold APRN Active NEBULIZER MISC use as directed NEBULIZERS 19528453244 Active Silvia Arnold APRN Active AZITHROMYCIN 250 MG ORAL TABS Take 2 tabs po today then 1 ta b po daily AZITHROMYCIN 29678136749 No Longer Active Silvia gavin APRN Active AUGMENTIN 875-125 MG TAB 1 po BID x 10 days AMOXICILLIN- POT CLAVULANATE 50009930799 No Longer Active Adriana Bender LPN Active TESSALON PERLES 100 MG CAP 1 tablet by mouth 3 times daily BENZONATATE 17145945015 Active Silvia Arnold APRN Active CHEWABLE CALCIUM 500-200-40 MG-UNT-MCG ORAL CHEW 1 chew tab bid 201 11/03/03 CALCIUM-VITAMIN D-VITAMIN K 32638825000 Active Silvia Arnold APRN Active EQ COMPLETE MULTIVIT ADULT 50+ ORAL TABS 1 tab po bid MULTIPLE VITAMINS-MINERALS 38203756129 Active Silvia Arnold APRN Act jairo HYDROCODONE-ACETAMINOPHEN 7.5-325 MG TABS TAKE ONE TAB EVERY 6 HOURS BY MOUTH NEEDED FOR PAIN HYDROCODONE-ACETAMINOPHEN 69479619852 Acti ve Bertrand Patel DO Active LORTAB 7.5-500 MG TABS take one po Q6 hours HYDROCODONE-ACETAMINOPHEN No Longer Active Nirmal Robbins RN Active [facility] MELATONIN 5-10 MG CR-TABS Take one by mouth daily at bedtime MELATONIN-PYRIDOXINE 09084356760 No Longer Active Bertrand Patel DO Active VITAMIN E 200 UNIT CAPS 1 cap po qd VITAMIN E 316 27870008 No Longer Active Bertrand Patel DO Active B-12 1000 MCG CAPS 1 tab daily CYANOCOBALAMIN 31 793126278 No Longer Active Bertrand Patel DO Active METFORMIN HCL 500 MG TABS 1 bid METFORMIN HCL 65266256706 No Longer Active Bertrand Patel DO Active FUROSEMIDE 20 MG TABS 1 pill by mouth daily if needed for edema FUROSEMIDE 96588856489 No Longer Active Bertrand Patel DO Act jairo PRAVASTATIN SODIUM 20 MG TABS 1 tablet by mouth daily at bedtime PRAVASTATIN SODIUM 15041045256 No Longer Active Bertrand Patel DO Active AUGMENTIN 875-125 MG TABS 1 pill by mouth twice daily AMOXICILLIN-POT CLAVULANATE 20602482945 No Longer Active Yoli Mercado MD PhD Active LEVAQUIN 500 MG TABS 1 pill by mouth daily LEVO FLOXACIN 03096985013 No Longer Active Yoli Mercado MD PhD Active CYCLOBENZAPRINE HCL 10 MG TABS Take 1 tab TID PRN for muscle pain CYCLOBENZAPRINE HCL 88864876773 Active Brittni Randall INSPECTOR ASSEMBLY Active AMLODIPINE BESYLATE 5 MG TABS 1 tablet by mouth daily for bl ood pressure AMLODIPINE BESYLATE 57336437104 Active Nitza Dorman PT,RMA Active MICARDIS 80 MG TABS 1 tablet daily for blood pressure TELMISARTAN 90090098250 Active Nitza Mullins RPT,RMA Active MICARDIS HCT 80-12.5 MG TABS 1 qd TELMISARTA N-HCTZ 88852845882 No Longer Active Bertrand Patel DO Active CINNAMON ALPHA LIPOIC AC CMPLX CAPS by mouth twice a d ay in AM by mouth twice a day in PM ALPHA LIPOIC [id number] CAPS 850322 73507 No Longer Active Bertrand Patel DO Active AZITHROMYCIN 500 MG SOLR 1 po q day AZITHROMYCI N 38568867500 No Longer Active Bertrand Patel DO Active CYMBALTA 30 MG CPEP 1 cap by mouth daily DULOXE CATHI HCL 15044002938 No Longer Active Bertrand Patel DO Active CYMBALTA 60 MG CPEP 1 cap by mouth daily DULOXE CATHI HCL 70514512943 Active Nitza Mullins RPT,RMA Active WELLBUTRIN 75 MG TABS 2 times daily BUPROPION H CL 75166984468 No Longer Active Bertrand Patel DO Active PROAIR HFA 108 (90 BASE) MCG/ACT AERS take one to two puffs po Q4-6 hour prn cough and shortness of breath ALBUTEROL SULFATE 3949874138 2 Active Silvia Arnold BOILER TECHNICIAN Active AZITHROMYCIN 250 MG TABS take 2 po today then take 1 po days 2-5 AZITHROMYCIN 37557771917 No Longer Active Adolfo OSORIO Active PERMETHRIN 5 % CREA apply neck to toes tonight a nd then rinse off in morning. repeat at 7 days PERMETHRIN 50050838545 No Longer Active Adolfo OSORIO Active AMOXICILLIN 500 MG CAPS 2 po BID x 10 days AMOX ICILLIN 63219655277 No Longer Active Yoli Mercado MD PhD Active ALPRAZOLAM 0.5 MG TAB 1 tab by mouth tid ALPRAZOL AM 07095753676 Active Bertrand Patel DO Active INSUPEN ULTRAFIN 31G X 6 MM MISC USE DIRECTED 03/04 INSULIN PEN NEEDLE 14845648604 No Longer Active Bertrand Patel DO Active TRANSDERM-SCOP 1.5 MG PT72 1 patch applied behind ear q 3 day 20 04/13/28 SCOPOLAMINE BASE 42015758076 No Longer Active Bertrand Patel DO Active MACRODANTIN 100 MG CAPS one p.o. b.i.d. x2 weeks 03/04 NITROFURANTOIN MACROCRYSTAL 45699208383 No Longer Active Bertrand Patel DO Active MACRODANTIN 100 MG CAPS one p.o. b.i.d. x2 weeks 03/04 MACRODANTIN 100 MG CAPS 1980573 NITROFURANTOIN MACROCRYSTAL Inactive TRANSDERM-SCOP 1.5 MG PT72 [...] at 7 days PERMETHRIN 5 % CREA 600429 PERMETHRIN Inactive WELLBUTRIN 75 MG TABS 2 times daily WELLBUTRIN 75 MG TABS 405817 BUPROPION HCL Inactive CYMBALTA 30 MG CPEP 1 cap by mouth daily CYMBALTA 30 MG CPEP 565234 DULOXETINE HCL Inactive AZITHROMYCIN 500 MG SOLR 1 po q day ALTA THROMYCIN 500 MG SOLR 09982582185 AZITHROMYCIN Inactive CINNAMON ALPHA LIPOIC AC CMPLX CAPS by mouth twice a d ay in AM by mouth twice a day in PM CINNAMON ALPHA LIPOIC AC CMPLX CAPS ALPHA LIPOIC [id number] CAPS Inactive MICARDIS HCT 80-12.5 MG TABS 1 qd MICARDI S HCT 80-12.5 MG TABS 086676 TELMISARTAN-HCTZ Inactive PRAVASTATIN SODIUM 20 MG TABS 1 tablet by mouth daily at bedtime PRAVASTATIN SODIUM 20 MG TABS 550363 PRAVASTATIN SODIUM Inactive FUROSEMIDE 20 MG TABS 1 pill by mouth daily if needed for edema FUROSEMIDE 20 MG TABS 853527 FUROSEMIDE Inactive METFORMIN HCL 500 MG TABS 1 bid METFORMIN HCL 500 MG TABS 543300 METFORMIN HCL Inactive B-12 1000 MCG CAPS 1 tab daily B-12 1000 MCG CAP S CYANOCOBALAMIN Inactive VITAMIN E 200 UNIT CAPS 1 cap po qd VITAMIN E 2 00 UNIT CAPS 3242165 VITAMIN E Inactive [facility] MELATONIN 5-10 MG CR-TABS Take one by mouth daily at bedtime [facility] MELATONIN 5-10 MG CR-TABS MELATONIN-PYRIDOXI NE Inactive LORTAB 7.5-500 MG TABS take one po Q6 hours LORTAB 7.5-500 MG TABS HYDROCODONE-ACETAMINOPHEN Inactive AZITHROMYCIN 250 MG ORAL TABS Take 2 tabs po today then 1 ta b po daily AZITHROMYCIN 250 MG ORAL TABS 0441278 AZITHROMYCI N Inactive AMOXICILLIN 500 MG CAPS 2 po BID x 10 days AMOXICILLIN 500 MG CAPS 403020 AMOXICILLIN Inactive AZITHROMYCIN 250 MG TABS take 2 po today then take 1 po days 2-5 AZITHROMYCIN 250 MG TABS 7882423 AZITHROMYCIN Inactiv e LEVAQUIN 500 MG TABS 1 pill by mouth daily LEVAQUIN 500 MG TABS 146033 LEVOFLOXACIN Inactive AUGMENTIN 875-125 MG TABS 1 pill by mouth twice daily AUGMENTIN 875-125 MG TABS 671670 AMOXICILLIN-POT CLAVULANATE Inacti ve AUGMENTIN 875-125 MG TAB 1 po BID x 10 days AUGMENTIN 875- 125 MG TAB 620197 AMOXICILLIN-POT CLAVULANATE Inactive Vital Signs Date Name Value Unit Range Description blood pressure, diastolic - 8462-4 90 mm[Hg] [...] Negative;Positive Encounters Code Encounter Date Provider Facility CPT-06613 Level 4 Est. Patient 16:02:10 [facility] WELTER Dangelo [facility] CPT-59375 Level 3 Est. Patient 13:04:54 [facility] WELTER Dangelo [facility] CPT-38219 Level 3 Est. Patient 12:56:37 CDT Bertrand marquez [facility] CPT-21294 Level 3 Est. Patient 19:12:03 CDT Yoli tolbert MD PhD [facility] CPT-57059 Level 3 Est. Patient 14:36:01 CDT Yoli tolbert MD PhD [facility] CPT-55892 Level 2 Est. Patient 08:00:22 CDT Jcarlos dc MD [facility] CPT-34167 Level 3 Est. Patient 19:06:55 CDT Bertrand marquez [facility] CPT-38944 Level 3 Est. Patient 10:08:23 [facility] Bertrand marquez [facility] CPT-51592 Level 3 Est. Patient 16:37:54 [facility] Bertrand marquez [facility] CPT-02639 Level 3 Est. Patient 11:31:59 [facility] Bertrand marquez [facility] CPT-90615 Level 3 Est. Patient 10:20:08 CDT Gennadot villasenor [facility] CPT-56589 Level 3 Est. Patient 13:45:20 CDT Sanket Pham ina [facility] CPT-00443 Level 3 Est. Patient 12:51:06 CDT Adolfo villasenor [facility] CPT-02229 Level 3 Est. Patient 11:22:51 [facility] Yoli tolbert MD PhD [facility] CPT-95453 Level 3 Est. Patient 13:33:19 CDT Bertrand marquez [facility] Procedures Code Procedure Name Date Entry Date Standard Desc ription CPT-J0696 Rocephin 1000 mg (Ceftriaxone) 16:20:30 [facility]EL[facility] CPT-39889 Abx/Therapy Injection 16:20:29 [facility] W[facility] CPT-J0696 Rocephin 1gm Inj Solr 15:51:59 [facility] WEL[facility] CPT-91822 Chest 2V Frontal and Lat 15:20:28 [facility] WELTER 07/22 CPT-20371 Breathing Tx 14:51:55 [facility] WEL[facility] CPT-48298 Breathing Tx 09:57:16 [facility] CPT-68672 Knee comp 4/> V 11:58:06 [facility]TER
--- OUTSIDE RECORDS SUMMARY | 2019-11-13 10:19 | XMS REPORT | Clinical Summary ---
Author Author Admin, Enrique Adamson Organization [employer] Address Unknown Phone Unavailable Allergies, Adverse Reactions, [...] NDC Status Provider Patient Instruction VITAMIN D3 81937 UNIT CAPS 1 pill Week x 4 months for vitamin D deficiency/osteoporosis CHOLECALCIFEROL 89311303038 Active Darlyn Monzon Active BENZONATATE 200 MG ORAL CAPS 1 three times a day as needed for c ough BENZONATATE 69770058861 Active Ike Deluna MD Acti ve ZITHROMAX Z-MARTIN 250 MG TABS 2 today and then 1 daily for 4 days 201 12/01/06 AZITHROMYCIN 14770546532 Active Ike Deluna MD Active ADDERALL 10 MG ORAL TABS 1 tab twice daily AMPHETAMINE-DEXTROAMPHETAMINE 54882367730 Active Ike Deluna MD Active BACTROBAN 2 % CREAM Apply to affected area BID for up to 10 days MUPIROCIN CALCIUM 34733562108 No Longer Active Ike Deluna MD Active CIPRO 500 MG TAB 1 tablet by mouth twice daily CIPROFLOXACIN HCL 33921951403 No Longer Active Adriana Bender LPN Active AUGMENTIN 875-125 MG TAB 1 po BID x 10 days AMOXICILLIN- POT CLAVULANATE 45421770101 No Longer Active Adriana Bender LPN Active MODAFINIL 200 MG ORAL TABS Take 1/2 tab po in the am and 1/2 tab po at noon MODAFINIL 99288100153 Active Bertrand Patel DO Ac tive CYCLOBENZAPRINE HCL 10 MG TABS Take 1 tab TID PRN for muscle pain CYCLOBENZAPRINE HCL 07233235377 No Longer Active Bertrand Patel DO Ac tive TESSALON PERLES 100 MG CAP 1 tablet by mouth 3 times daily 07/07 BENZONATATE 51205088083 No Longer Active Bertrand Patel DO Ac tive NEBULIZER MISC use as directed NEBULIZERS 361160 78453 No Longer Active Bertrand Patel DO Active ALBUTEROL SULFATE 0.083 % NEBU SOLCammy one vial per nebul izer every 4-6 hours as needed ALBUTEROL SULFATE 97419738175 No Longer Active Bertrand Patel DO Active SYMBICORT 160-4.5 MCG/ACT AERO 2 puffs BID BUDESONIDE- FORMOTEROL FUMARATE 83497127970 No Longer Active Bertrand Patel DO Ac tive PREDNISONE 20 MG TAB take 3 tabs daily for 3 days , 2 tabs daily for 3 days, 1 tab daily for 3 days, 1/2 tab daily for 3 days P REDNISONE 14111773196 No Longer Active Silvia Arnold APRN Active AZITHROMYCIN 250 MG ORAL TABS Take 2 tabs po today then 1 ta b po daily AZITHROMYCIN 16256123605 No Longer Active Silvia Jorge leslye RN ACUTE DIALYSIS Active AUGMENTIN 875-125 MG TAB 1 po BID x 10 days AMOXICILLIN- POT CLAVULANATE 32523400707 No Longer Active Adriana Bender LPN Active CHEWABLE CALCIUM 500-200-40 MG-UNT-MCG ORAL CHEW 1 chew tab bid 201 11/03/03 CALCIUM-VITAMIN D-VITAMIN K 90079531766 Active Silvia Arnold APRN Active EQ COMPLETE MULTIVIT ADULT 50+ ORAL TABS 1 tab po bid MULTIPLE VITAMINS-MINERALS 48318588861 Active Silvia Arnold APRN Act jairo HYDROCODONE-ACETAMINOPHEN 7.5-325 MG TABS TAKE ONE TAB EVERY 6 HOURS BY MOUTH NEEDED FOR PAIN HYDROCODONE-ACETAMINOPHEN 53106813827 Acti ve Bertrand Patel DO Active LORTAB 7.5-500 MG TABS take one po Q6 hours HYDROCODONE-ACETAMINOPHEN No Longer Active Nirmal Robbins RN Active [facility] MELATON[facility] 5-10 MG CR-TABS Take one by mouth daily at bedtime MELATONIN-PYRIDOXINE 52161915154 No Longer Active Bertrand Patel DO Active VITAMIN E 200 UNIT CAPS 1 cap po qd VITAMIN E 316 97488921 No Longer Active Bertrand Patel DO Active B-12 1000 MCG CAPS 1 tab daily CYANOCOBALAMIN 31 347737785 No Longer Active Bertrand Patel DO Active METFORMIN HCL 500 MG TABS 1 bid METFORMIN HCL 40186073517 No Longer Active Bertrand Patel DO Active FUROSEMIDE 20 MG TABS 1 pill by mouth daily if needed for edema FUROSEMIDE 88002051318 No Longer Active Bertrand Patel DO Act jairo PRAVASTATIN SODIUM 20 MG TABS 1 tablet by mouth daily at bedtime PRAVASTATIN SODIUM 73892674877 No Longer Active Bertrand Patel DO Active AUGMENTIN 875-125 MG TABS 1 pill by mouth twice daily AMOXICILLIN-POT CLAVULANATE 40262945060 No Longer Active Yoli Mercado MD PhD Active LEVAQUIN 500 MG TABS 1 pill by mouth daily LEVO FLOXACIN 73324504434 No Longer Active Yoli Mercado MD PhD Active AMLODIPINE BESYLATE 5 MG TABS 1 tablet by mouth daily for bl ood pressure AMLODIPINE BESYLATE 64261462170 Active Darlyn Monzon Active MICARDIS 80 MG TABS 1 tablet daily for blood pressure TELMISARTAN 50512676696 Active Darlyn Monzon Active MICARDIS HCT 80-12.5 MG TABS 1 qd TELMISARTA N-HCTZ 88916007262 No Longer Active Bertrand Patel DO Active CINNAMON ALPHA LIPOIC AC CMPLX CAPS by mouth twice a d ay in AM by mouth twice a day in PM ALPHA LIPOIC [id number] CAPS 855558 69622 No Longer Active Bertrand Patel DO Active AZITHROMYCIN 500 MG SOLR 1 po q day AZITHROMYCI N 19733094327 No Longer Active Bertrand Patel DO Active CYMBALTA 30 MG CPEP 1 cap by mouth daily DULOXE CATHI HCL 72223196374 No Longer Active Bertrand Patel DO Active CYMBALTA 60 MG CPEP 1 cap by mouth daily DULOXE CATHI HCL 98177582060 Active Darlyn Monzon Active WELLBUTRIN 75 MG TABS 2 times daily BUPROPION H CL 14606947394 No Longer Active Bertrand Patel DO Active PROAIR HFA 108 (90 BASE) MCG/ACT AERS take one to two puffs po Q4-6 hour prn cough and shortness of breath ALBUTEROL SULFATE 6410807272 2 Active Silvia Arnold RN ACUTE DIALYSIS Active AZITHROMYCIN 250 MG TABS take 2 po today then take 1 po days 2-5 AZITHROMYCIN 87479076640 No Longer Active Adolfo OSORIO Active PERMETHRIN 5 % CREA apply neck to toes tonight a nd then rinse off in morning. repeat at 7 days PERMETHRIN 83017656806 No Longer Active Adolfo OSORIO Active AMOXICILLIN 500 MG CAPS 2 po BID x 10 days AMOX ICILLIN 29145374768 No Longer Active Yoli Mercado MD PhD Active ALPRAZOLAM 0.5 MG TAB 1 tab by mouth tid ALPRAZOL AM 88993725217 Active Nitza Mullins RESTAURANT CULINARY MANAGER Active INSUPEN ULTRAFIN 31G X 6 MM MISC USE DIRECTED 03/04 INSULIN PEN NEEDLE 77236990723 No Longer Active Bertrand Patel DO Active TRANSDERM-SCOP 1.5 MG PT72 1 patch applied behind ear q 3 day 20 04/13/28 SCOPOLAMINE BASE 12644539728 No Longer Active Bertrand Patel DO Active MACRODANTIN 100 MG CAPS one p.o. b.i.d. x2 weeks 03/04 NITROFURANTOIN MACROCRYSTAL 62040541059 No Longer Active Bertrand Patel DO Active MACRODANTIN 100 MG CAPS one p.o. b.i.d. x2 weeks 03/04 MACRODANTIN 100 MG CAPS 4224902 NITROFURANTOIN MACROCRYSTAL Inactive TRANSDERM-SCOP 1.5 MG PT72 [...] at 7 days PERMETHRIN 5 % CREA 168704 PERMETHRIN Inactive WELLBUTRIN 75 MG TABS 2 times daily WELLBUTRIN 75 MG TABS 615152 BUPROPION HCL Inactive CYMBALTA 30 MG CPEP 1 cap by mouth daily CYMBALTA 30 MG CPEP 578467 DULOXETINE HCL Inactive AZITHROMYCIN 500 MG SOLR 1 po q day ALTA THROMYCIN 500 MG SOLR 10254510072 AZITHROMYCIN Inactive CINNAMON ALPHA LIPOIC AC CMPLX CAPS by mouth twice a d ay in AM by mouth twice a day in PM CINNAMON ALPHA LIPOIC AC CMPLX CAPS ALPHA LIPOIC [id number] CAPS Inactive MICARDIS HCT 80-12.5 MG TABS 1 qd MICARDI S HCT 80-12.5 MG TABS 885376 TELMISARTAN-HCTZ Inactive PRAVASTATIN SODIUM 20 MG TABS 1 tablet by mouth daily at bedtime PRAVASTATIN SODIUM 20 MG TABS 180422 PRAVASTATIN SODIUM Inactive FUROSEMIDE 20 MG TABS 1 pill by mouth daily if needed for edema FUROSEMIDE 20 MG TABS 909421 FUROSEMIDE Inactive METFORMIN HCL 500 MG TABS 1 bid METFORMIN HCL 500 MG TABS 121947 METFORMIN HCL Inactive B-12 1000 MCG CAPS 1 tab daily B-12 1000 MCG CAP S CYANOCOBALAMIN Inactive VITAMIN E 200 UNIT CAPS 1 cap po qd VITAMIN E 2 00 UNIT CAPS 9448547 VITAMIN E Inactive [facility] MELATONIN 5-10 MG CR-TABS Take one by mouth daily at bedtime [facility] MELATONIN 5-10 MG CR-TABS MELATONIN-PYRIDOXI NE Inactive LORTAB 7.5-500 MG TABS take one po Q6 hours LORTAB 7.5-500 MG TABS 630193 HYDROCODONE-ACETAMINOPHEN Inactive AZITHROMYCIN 250 MG ORAL TABS Take 2 tabs po today then 1 ta b po daily AZITHROMYCIN 250 MG ORAL TABS 852713 AZITHROMYCI N Inactive SYMBICORT 160-4.5 MCG/ACT AERO 2 puffs BID SYMBICORT 160- 4.5 MCG/ACT AERO BUDESONIDE-FORMOTEROL FUMARATE Inactive ALBUTEROL SULFATE 0.083 % NEBU SOLN one vial per nebul izer every 4-6 hours as needed ALBUTEROL SULFATE 0.083 % NEBU SOLN 73995 8 ALBUTEROL SULFATE Inactive NEBULIZER MISC use as directed NEBULIZER MISC NEBULIZERS Inactive TESSALON PERLES 100 MG CAP 1 tablet by mouth 3 times daily 07/07 TESSALON PERLES 100 MG CAP 446706 BENZONATATE Inact jairo CYCLOBENZAPRINE HCL 10 MG TABS Take 1 tab TID PRN for muscle pain CYCLOBENZAPRINE HCL 10 MG TABS 269866 CYCLOBENZAPRINE HCL Inactive AUGMENTIN 875-125 MG TAB 1 po BID x 10 days AUGMENTIN 875- 125 MG TAB 681306 AMOXICILLIN-POT CLAVULANATE Inactive BACTROBAN 2 % CREAM Apply to affected area BID for up to 10 days BACTROBAN 2 % CREAM 575589 MUPIROCIN CALCIUM Inactive AMOXICILLIN 500 MG CAPS 2 po BID x 10 days AMOXICILLIN 500 MG CAPS 356580 AMOXICILLIN Inactive AZITHROMYCIN 250 MG TABS take 2 po today then take 1 po days 2-5 AZITHROMYCIN 250 MG TABS 597042 AZITHROMYCIN Inactiv e LEVAQUIN 500 MG TABS 1 pill by mouth daily LEVAQUIN 500 MG TABS 680597 LEVOFLOXACIN Inactive AUGMENTIN 875-125 MG TABS 1 pill by mouth twice daily AUGMENTIN 875-125 MG TABS 139037 AMOXICILLIN-POT CLAVULANATE Inacti ve AUGMENTIN 875-125 MG TAB 1 po BID x 10 days AUGMENTIN 875- 125 MG TAB 268339 AMOXICILLIN-POT CLAVULANATE Inactive PREDNISONE 20 MG TAB take 3 tabs daily for 3 days , 2 tabs daily for 3 days, 1 tab daily for 3 days, 1/2 tab daily for 3 days PREDNISONE 20 MG TAB 129923 PREDNISONE Inactive CIPRO 500 MG TAB 1 tablet by mouth twice daily CIPRO 500 MG TAB 514395 CIPROFLOXACIN HCL Inactive Vital Signs Date Name [...] 0-19 Encounters Code Encounter Date Provider Facility CPT-06295 Level 4 Est. Patient 12:31:54 CDT Bertrand marquez [facility] CPT-02561 Level 3 Est. Patient 11:27:00 CALIBRATION SPECIALIST Ike Deluna MD [facility]-63683 Level 3 Est. Patient 08:50:57 CALIBRATION SPECIALIST Dangelo BARAJAS [facility] CPT-75739 Level 3 Est. Patient 10:04:13 CDT Bertrand marquez [facility] CPT-10497 Level 4 Est. Patient 16:02:10 CALIBRATION SPECIALIST Dangelo RN ACUTE DIALYSIS [facility] CPT-59369 Level 3 Est. Patient 13:04:54 CALIBRATION SPECIALIST Dangelo RN ACUTE DIALYSIS [facility]-40736 Level 3 Est. Patient 12:56:37 CDT Bertrand marquez [facility] CPT-11111 Level 3 Est. Patient 19:12:03 CDT Yoli tolbert MD PhD [facility] CPT-69732 Level 3 Est. Patient 14:36:01 CDT Yoli tolbert MD [facility] CPT-61478 Level 2 Est. Patient 08:00:22 CDT Jcarlos dc MD [facility]-62898 Level 3 Est. Patient 19:06:55 CDT Bertrand marquez [facility] CPT-56398 Level 3 Est. Patient 10:08:23 CALIBRATION SPECIALIST Bertrand marquez [facility] CPT-16378 Level 3 Est. Patient 16:37:54 CALIBRATION SPECIALIST Bertrand marquez [facility] CPT-53020 Level 3 Est. Patient 11:31:59 CALIBRATION SPECIALIST Bertrand marquez [facility] CPT-45441 Level 3 Est. Patient 10:20:08 CDT Adolfo villasenor [facility]-93188 Level 3 Est. Patient 13:45:20 CDT Sanket buckley [facility] CPT-64606 Level 3 Est. Patient 12:51:06 CDT Adolfo Monroyridge villasenor [facility] CPT-12240 Level 3 Est. Patient 11:22:51 CALIBRATION SPECIALIST Yoli tolbert MD PhD [facility] CPT-46577 Level 3 Est. Patient 13:33:19 CDT Bertrand Sabillon ee DO [facility] Procedures Code Procedure Name Date Entry Date Standard Desc ription CPT-75315 Wound Culture - LAB USE ONLY 15:45:25 CDT 2 CPT-57206 Venipuncture Draw Fee 10:23:01 CDT CPT-J0696 Rocephin 1000 mg (Ceftriaxone) 16:20:30 CALIBRATION SPECIALIST CPT-11327 Abx/Therapy Injection 16:20:29 CALIBRATION SPECIALIST CPT-J0696 Rocephin 1gm Inj Solr 15:51:59 CALIBRATION SPECIALIST CPT-86265 Chest 2V Frontal and Lat 15:20:28 CALIBRATION SPECIALIST 07/22 CPT-50348 Breathing Tx 14:51:55 CALIBRATION SPECIALIST CPT-26117 Breathing Tx 09:57:16 CALIBRATION SPECIALIST CPT-87316 Knee comp 4/> V 11:58:06 CALIBRATION SPECIALIST
--- OUTSIDE RECORDS SUMMARY | 2019-11-13 10:19 | XMS REPORT | Clinical Summary ---
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 Fatigue 780.79 Active Silvia Arnold [...] and 1/2 tab po at noon MODAFINIL 09590579166 Active Keysha Jones MA Active CYCLOBENZAPRINE HCL 10 MG TABS Take 1 tab TID PRN for muscle pain CYCLOBENZAPRINE HCL 39097113218 No Longer Active Bertrand Rowan tive TESSALON PERLES 100 MG CAP 1 tablet by mouth 3 times daily 07/07 BENZONATATE 33757186779 No Longer Active Bertrand Patel DO Ac tive NEBULIZER MISC use as directed NEBULIZERS 877210 92197 No Longer Active Bertrand Patel DO Active ALBUTEROL SULFATE 0.083 % NEBU SOLN one vial per nebul izer every 4-6 hours as needed ALBUTEROL SULFATE 90996178354 No Longer Active Bertrand Patel DO Active SYMBICORT 160-4.5 MCG/ACT AERO 2 puffs BID BUDESONIDE- FORMOTEROL FUMARATE 15446054646 No Longer Active Bertrand Patel DO Ac tive PREDNISONE 20 MG TAB take 3 tabs daily for 3 days , 2 tabs daily for 3 days, 1 tab daily for 3 days, 1/2 tab daily for 3 days P REDNISONE 05110933739 No Longer Active Silvia Arnold APRN Active AZITHROMYCIN 250 MG ORAL TABS Take 2 tabs po today then 1 ta b po daily AZITHROMYCIN 97375575653 No Longer Active Silvia Jorge gavin EXTRACTOR TENDER RAW STOCK Active AUGMENTIN 875-125 MG TAB 1 po BID x 10 days AMOXICILLIN- POT CLAVULANATE 38502577262 No Longer Active Adriana Bender LPN Active CHEWABLE CALCIUM 500-200-40 MG-UNT-MCG ORAL CHEW 1 chew tab bid 201 11/03/03 CALCIUM-VITAMIN D-VITAMIN K 91177529818 Active Silvia Arnold APRN Active EQ COMPLETE MULTIVIT ADULT 50+ ORAL TABS 1 tab po bid MULTIPLE VITAMINS-MINERALS 33908891019 Active Silvia Arnold APRN Act jairo HYDROCODONE-ACETAMINOPHEN 7.5-325 MG TABS TAKE ONE TAB EVERY 6 HOURS BY MOUTH NEEDED FOR PAIN HYDROCODONE-ACETAMINOPHEN 20274619392 Acti ve Bertrand Patel DO Active LORTAB 7.5-500 MG TABS take one po Q6 hours HYDROCODONE-ACETAMINOPHEN No Longer Active Nirmal Robbins RN Active [facility] MELATONIN 5-10 MG CR-TABS Take one by mouth daily at bedtime MELATONIN-PYRIDOXINE 51289389213 No Longer Active Bertrand Patel DO Active VITAMIN E 200 UNIT CAPS 1 cap po qd VITAMIN E 316 12372748 No Longer Active Bertrand Patel DO Active B-12 1000 MCG CAPS 1 tab daily CYANOCOBALAMIN 31 067633712 No Longer Active Bertrand Patel DO Active METFORMIN HCL 500 MG TABS 1 bid METFORMIN HCL 92622939395 No Longer Active Bertrand W Jorge DO Active FUROSEMIDE 20 MG TABS 1 pill by mouth daily if needed for edema FUROSEMIDE 48184840007 No Longer Active Bertrand Patel DO Act jairo PRAVASTATIN SODIUM 20 MG TABS 1 tablet by mouth daily at bedtime PRAVASTATIN SODIUM 90174946199 No Longer Active Bertrand Patel DO Active AUGMENTIN 875-125 MG TABS 1 pill by mouth twice daily AMOXICILLIN-POT CLAVULANATE 19288510586 No Longer Active Yoli Mercado MD PhD Active LEVAQUIN 500 MG TABS 1 pill by mouth daily LEVO FLOXACIN 56582897755 No Longer Active Yoli Mercado MD PhD Active AMLODIPINE BESYLATE 5 MG TABS 1 tablet by mouth daily for bl ood pressure AMLODIPINE BESYLATE 43318389047 Active Nitza Dorman PT,RMA Active MICARDIS 80 MG TABS 1 tablet daily for blood pressure TELMISARTAN 45773390987 Active Nitza Mullins RPT,RMA Active MICARDIS HCT 80-12.5 MG TABS 1 qd TELMISARTA N-HCTZ 08871992071 No Longer Active Bertrand Patel DO Active CINNAMON ALPHA LIPOIC AC CMPLX CAPS by mouth twice a d ay in AM by mouth twice a day in PM ALPHA LIPOIC [id number] CAPS 691298 93805 No Longer Active Bertrand Patel DO Active AZITHROMYCIN 500 MG SOLR 1 po q day AZITHROMYCI N 56144662724 No Longer Active Bertrand Patel DO Active CYMBALTA 30 MG CPEP 1 cap by mouth daily DULOXE CATHI HCL 64259121762 No Longer Active Bertrand Patel DO Active CYMBALTA 60 MG CPEP 1 cap by mouth daily DULOXE CATHI HCL 54159630977 Active Nitza Mullins RPT,RMA Active WELLBUTRIN 75 MG TABS 2 times daily BUPROPION H CL 56773970874 No Longer Active Bertrand W Jorge DO Active PROAIR HFA 108 (90 BASE) MCG/ACT AERS take one to two puffs po Q4-6 hour prn cough and shortness of breath ALBUTEROL SULFATE 4841034073 2 Active Silvia Arnold EXTRACTOR TENDER RAW STOCK Active AZITHROMYCIN 250 MG TABS take 2 po today then take 1 po days 2-5 AZITHROMYCIN 66035213813 No Longer Active Adolfo OSORIO Active PERMETHRIN 5 % CREA apply neck to toes tonight a nd then rinse off in morning. repeat at 7 days PERMETHRIN 00359471797 No Longer Active Adolfo OSORIO Active AMOXICILLIN 500 MG CAPS 2 po BID x 10 days AMOX ICILLIN 44852024504 No Longer Active Yoli Mercado MD PhD Active ALPRAZOLAM 0.5 MG TAB 1 tab by mouth tid ALPRAZOL AM 35891992194 Active Nitza Mullins RPT,RMA Active INSUPEN ULTRAFIN 31G X 6 MM MISC USE DIRECTED 03/04 INSULIN PEN NEEDLE 59929936604 No Longer Active Bertrand Patel DO Active TRANSDERM-SCOP 1.5 MG PT72 1 patch applied behind ear q 3 day 20 04/13/28 SCOPOLAMINE BASE 24175442281 No Longer Active Bertrand Patel DO Active MACRODANTIN 100 MG CAPS one p.o. b.i.d. x2 weeks 03/04 NITROFURANTOIN MACROCRYSTAL 84525902767 No Longer Active Bertrand Patel DO Active MACRODANTIN 100 MG CAPS one p.o. b.i.d. x2 weeks 03/04 MACRODANTIN 100 MG CAPS 7910499 NITROFURANTOIN MACROCRYSTAL Inactive TRANSDERM-SCOP 1.5 MG PT72 [...] at 7 days PERMETHRIN 5 % CREA 792976 PERMETHRIN Inactive WELLBUTRIN 75 MG TABS 2 times daily WELLBUTRIN 75 MG TABS BUPROPION HCL Inactive CYMBALTA 30 MG CPEP 1 cap by mouth daily CYMBALTA 30 MG CPEP 039368 DULOXETINE HCL Inactive AZITHROMYCIN 500 MG SOLR 1 po q day ALTA THROMYCIN 500 MG SOLR 41357549153 AZITHROMYCIN Inactive CINNAMON ALPHA LIPOIC AC CMPLX CAPS by mouth twice a d ay in AM by mouth twice a day in PM CINNAMON ALPHA LIPOIC AC CMPLX CAPS ALPHA LIPOIC [id number] CAPS Inactive MICARDIS HCT 80-12.5 MG TABS 1 qd MICARDI S HCT 80-12.5 MG TABS 660096 TELMISARTAN-HCTZ Inactive PRAVASTATIN SODIUM 20 MG TABS 1 tablet by mouth daily at bedtime PRAVASTATIN SODIUM 20 MG TABS 327819 PRAVASTATIN SODIUM Inactive FUROSEMIDE 20 MG TABS 1 pill by mouth daily if needed for edema FUROSEMIDE 20 MG TABS 702812 FUROSEMIDE Inactive METFORMIN HCL 500 MG TABS 1 bid METFORMIN HCL 500 MG TABS 234078 METFORMIN HCL Inactive B-12 1000 MCG CAPS 1 tab daily B-12 1000 MCG CAP S CYANOCOBALAMIN Inactive VITAMIN E 200 UNIT CAPS 1 cap po qd VITAMIN E 2 00 UNIT CAPS 1569705 VITAMIN E Inactive [facility] MELATONIN 5-10 MG CR-TABS Take one by mouth daily at bedtime [facility] MELATONIN 5-10 MG CR-TABS MELATONIN-PYRIDOXI NE Inactive LORTAB 7.5-500 MG TABS take one po Q6 hours LORTAB 7.5-500 MG TABS HYDROCODONE-ACETAMINOPHEN Inactive AZITHROMYCIN 250 MG ORAL TABS Take 2 tabs po today then 1 ta b po daily AZITHROMYCIN 250 MG ORAL TABS 0166504 AZITHROMYCI N Inactive SYMBICORT 160-4.5 MCG/ACT AERO 2 puffs BID SYMBICORT 160- 4.5 MCG/ACT AERO BUDESONIDE-FORMOTEROL FUMARATE Inactive ALBUTEROL SULFATE 0.083 % NEBU SOLN one vial per nebul izer every 4-6 hours as needed ALBUTEROL SULFATE 0.083 % NEBU SOLN 29866 8 ALBUTEROL SULFATE Inactive NEBULIZER MISC use as directed NEBULIZER MISC NEBULIZERS Inactive TESSALON PERLES 100 MG CAP 1 tablet by mouth 3 times daily 07/07 TESSALON PERLES 100 MG CAP 986738 BENZONATATE Inact jairo CYCLOBENZAPRINE HCL 10 MG TABS Take 1 tab TID PRN for muscle pain CYCLOBENZAPRINE HCL 10 MG TABS 217042 CYCLOBENZAPRINE HCL Inactive AMOXICILLIN 500 MG CAPS 2 po BID x 10 days AMOXICILLIN 500 MG CAPS 994815 AMOXICILLIN Inactive AZITHROMYCIN 250 MG TABS take 2 po today then take 1 po days 2-5 AZITHROMYCIN 250 MG TABS 5955125 AZITHROMYCIN Inactiv e LEVAQUIN 500 MG TABS 1 pill by mouth daily LEVAQUIN 500 MG TABS 048246 LEVOFLOXACIN Inactive AUGMENTIN 875-125 MG TABS 1 pill by mouth twice daily AUGMENTIN 875-125 MG TABS 981862 AMOXICILLIN-POT CLAVULANATE Inacti ve AUGMENTIN 875-125 MG TAB 1 po BID x 10 days AUGMENTIN 875- 125 MG TAB 910126 AMOXICILLIN-POT CLAVULANATE Inactive PREDNISONE 20 MG TAB take 3 tabs daily for 3 days , 2 tabs daily for 3 days, 1 tab daily for 3 days, 1/2 tab daily for 3 days PREDNISONE 20 MG TAB 617624 PREDNISONE Inactive Vital Signs Date Name Value [...] 5.8 % 4.3-6.0 cholesterol, serum 200 mg/dL 634-050 9716/07/22 triglyceride, serum, fasting 56 mg/dL 30-200 HDL cholesterol, serum 80 mg/dL 32-96 LDL cholesterol, serum 109 mg/dL 0-130 albumin/creatinine ratio, urine < 30 mg/g mg/g{creat} 0-2 9 TSH 1.16 m[iU]/mL 0.36-3.74 sodium, serum 142 mmol/L 158-474 3898/07/22 carbon dioxide, venous blood 33.1 mmol/L 21.0-32 [...] Negative;Positive Encounters Code Encounter Date Provider Facility CPT-98319 Level 3 Est. Patient 10:04:13 CDT Bertrand marquez [facility] CPT-58655 Level 4 Est. Patient 16:02:10 CONCRETING SUPERVISOR Dangelo EXTRACTOR TENDER RAW STOCK Lizy [facility] CPT-90644 Level 3 Est. Patient 13:04:54 CONCRETING SUPERVISOR Dangelo EXTRACTOR TENDER RAW STOCK [facility] CPT-76728 Level 3 Est. Patient 12:56:37 CDT Bertrand marquez [facility] CPT-11836 Level 3 Est. Patient 19:12:03 CDT Yoli tolbert MD [facility] CPT-22957 Level 3 Est. Patient 14:36:01 CDT Yoli tolbert MD [facility] CPT-19181 Level 2 Est. Patient 08:00:22 CDT Jcarlos dc MD [facility] CPT-28286 Level 3 Est. Patient 19:06:55 CDT Bertrand marquez [facility] CPT-98601 Level 3 Est. Patient 10:08:23 CONCRETING SUPERVISOR Bertrand marquez [facility] CPT-88573 Level 3 Est. Patient 16:37:54 CONCRETING SUPERVISOR Bertrand marquez [facility] CPT-85586 Level 3 Est. Patient 11:31:59 CONCRETING SUPERVISOR Bertrand marquez [facility] CPT-87747 Level 3 Est. Patient 10:20:08 CDT Adolfo villasenor [facility] CPT-18679 Level 3 Est. Patient 13:45:20 CDT Sanket buckley [facility] CPT-15732 Level 3 Est. Patient 12:51:06 CDT Adolfo villasenor [facility] CPT-05516 Level 3 Est. Patient 11:22:51 CONCRETING SUPERVISOR Yoli tolbert MD [facility] CPT-84429 Level 3 Est. Patient 13:33:19 CDT Bertrand marquez [facility] Procedures Code Procedure Name Date Entry Date Standard Desc ription CPT-92855 Venipuncture Draw Fee 10:23:01 CDT CPT-J0696 Rocephin 1000 mg (Ceftriaxone) 16:20:30 CONCRETING SUPERVISOR CPT-34134 Abx/Therapy Injection 16:20:29 CONCRETING SUPERVISOR CPT-J0696 Rocephin 1gm Inj Solr 15:51:59 CONCRETING SUPERVISOR CPT-79301 Chest 2V Frontal and Lat 15:20:28 CONCRETING SUPERVISOR 07/22 CPT-88131 Breathing Tx 14:51:55 CONCRETING SUPERVISOR CPT-44169 Breathing Tx 09:57:16 CONCRETING SUPERVISOR CPT-08896 Knee comp 4/> V 11:58:06 CONCRETING SUPERVISOR
--- OUTSIDE RECORDS SUMMARY | 2019-11-13 10:20 | XMS REPORT | Clinical Summary ---
Author Author Admin, Enrique Adamson Organization [facility] Address Unknown Phone Unavailable Allergies, [...] Polyuria Cellulitis, leg, right 682.6 Active Yoli sabiloln MD PhD Cellulitis and abscess of leg, [...] HOURS BY MOUTH NEEDED FOR PAIN HYDROCODONE-ACETAMINOPHEN [id number] Acti ve Bertrand Patel DO Active LORTAB 7.5-500 MG TABS take one po Q6 hours HYDROCODONE-ACETAMINOPHEN No Longer Active Nirmal Robbins RN Active [facility] MELATONIN 5-10 MG CR-TABS Take one by mouth daily at bedtime MELATONIN-PYRIDOXINE 12508076772 No Longer Active Bertrand Patel DO Active VITAMIN E 200 UNIT CAPS 1 cap po qd VITAMIN E 316 05676131 No Longer Active Bertrand Patel DO Active B-12 1000 MCG CAPS 1 tab daily CYANOCOBALAMIN 31 015342686 No Longer Active Bertrand Patel DO Active METFORMIN HCL 500 MG TABS 1 bid METFORMIN HCL 98019883820 No Longer Active Bertrand Patel DO Active FUROSEMIDE 20 MG TABS 1 pill by mouth daily if needed for edema FUROSEMIDE 25016352618 No Longer Active Bertrand Patel DO Act jairo PRAVASTATIN SODIUM 20 MG TABS 1 tablet by mouth daily at bedtime PRAVASTATIN SODIUM 38189444109 No Longer Active Bertrand Patel DO Active AUGMENTIN 875-125 MG TABS 1 pill by mouth twice daily AMOXICILLIN-POT CLAVULANATE 16941150404 No Longer Active Yoli Mercado MD PhD Active LEVAQUIN 500 MG TABS 1 pill by mouth daily LEVO FLOXACIN 16654714109 No Longer Active Yoli Mercado MD PhD Active CYCLOBENZAPRINE HCL 10 MG TABS Take 1 tab TID PRN for muscle pain CYCLOBENZAPRINE HCL 59296316033 Active Brittni Fernándezum QUALITY ENGINEER MEDICAL DEVICE Active AMLODIPINE BESYLATE 5 MG TABS 1 tablet by mouth daily for bl ood pressure AMLODIPINE BESYLATE 75379678693 Active Nitza Dorman PT,RMA Active MICARDIS 80 MG TABS 1 tablet daily for blood pressure TELMISARTAN 42678176866 Active Bertrand Patel DO Active MICARDIS HCT 80-12.5 MG TABS 1 qd TELMISARTA N-HCTZ 78224338300 No Longer Active Bertrand Patel DO Active CINNAMON ALPHA LIPOIC AC CMPLX CAPS by mouth twice a d ay in AM by mouth twice a day in PM ALPHA LIPOIC [id number] CAPS 211582 60730 No Longer Active Bertrand Patel DO Active AZITHROMYCIN 500 MG SOLR 1 po q day AZITHROMYCI N 99769336450 No Longer Active Bertrand Patel DO Active CYMBALTA 30 MG CPEP 1 cap by mouth daily DULOXE CATHI HCL 03742088805 No Longer Active Bertrand Patel DO Active CYMBALTA 60 MG CPEP 1 cap by mouth daily DULOXE CATHI HCL 36688334691 Active Bertrand Patel DO Active WELLBUTRIN 75 MG TABS 2 times daily BUPROPION H CL 97579346658 No Longer Active Bertrand Patel DO Active PROAIR HFA 108 (90 BASE) MCG/ACT AERS take one to two puffs po Q4-6 hour prn cough and shortness of breath ALBUTEROL SULFATE 1962519809 1 Active Adolfo OSORIO Active AZITHROMYCIN 250 MG TABS take 2 po today then take 1 po days 2-5 AZITHROMYCIN 09518497584 No Longer Active Adolfo OSORIO Active PERMETHRIN 5 % CREA apply neck to toes tonight a nd then rinse off in morning. repeat at 7 days PERMETHRIN 71038320474 No Longer Active Adolfo OSORIO Active AMOXICILLIN 500 MG CAPS 2 po BID x 10 days AMOX ICILLIN 31771508858 No Longer Active Yoli Mercado MD PhD Active ALPRAZOLAM 0.5 MG TAB 1 tab by mouth tid ALPRAZOL AM 86492850438 Active Bertrand Patel DO Active INSUPEN ULTRAFIN 31G X 6 MM MISC USE DIRECTED 03/04 INSULIN PEN NEEDLE 47862752384 No Longer Active Bertrand Patel DO Active TRANSDERM-SCOP 1.5 MG PT72 1 patch applied behind ear q 3 day 20 04/13/28 SCOPOLAMINE BASE 39760129008 No Longer Active Bertrand Patel DO Active MACRODANTIN 100 MG CAPS one p.o. b.i.d. x2 weeks 03/04 NITROFURANTOIN MACROCRYSTAL 56550008952 No Longer Active Bertrand Patel DO Active MACRODANTIN 100 MG CAPS one p.o. b.i.d. x2 weeks 03/04 MACRODANTIN 100 MG CAPS 3067499 NITROFURANTOIN MACROCRYSTAL Inactive TRANSDERM-SCOP 1.5 MG PT72 [...] at 7 days PERMETHRIN 5 % CREA 253748 PERMETHRIN Inactive WELLBUTRIN 75 MG TABS 2 times daily WELLBUTRIN 75 MG TABS 189862 BUPROPION HCL Inactive CYMBALTA 30 MG CPEP 1 cap by mouth daily CYMBALTA 30 MG CPEP 369393 DULOXETINE HCL Inactive AZITHROMYCIN 500 MG SOLR 1 po q day ALTA THROMYCIN 500 MG SOLR 961257 AZITHROMYCIN Inactive CINNAMON ALPHA LIPOIC AC CMPLX CAPS by mouth twice a d ay in AM by mouth twice a day in PM CINNAMON ALPHA LIPOIC AC CMPLX CAPS ALPHA LIPOIC [id number] CAPS Inactive MICARDIS HCT 80-12.5 MG TABS 1 qd MICARDI S HCT 80-12.5 MG TABS 646967 TELMISARTAN-HCTZ Inactive PRAVASTATIN SODIUM 20 MG TABS 1 tablet by mouth daily at bedtime PRAVASTATIN SODIUM 20 MG TABS 454993 PRAVASTATIN SODIUM Inactive FUROSEMIDE 20 MG TABS 1 pill by mouth daily if needed for edema FUROSEMIDE 20 MG TABS 027874 FUROSEMIDE Inactive METFORMIN HCL 500 MG TABS 1 bid METFORMIN HCL 500 MG TABS 961084 METFORMIN HCL Inactive B-12 1000 MCG CAPS 1 tab daily B-12 1000 MCG CAP S CYANOCOBALAMIN Inactive VITAMIN E 200 UNIT CAPS 1 cap po qd VITAMIN E 2 00 UNIT CAPS 0470504 VITAMIN E Inactive [facility] MELATONIN 5-10 MG CR-TABS Take one by mouth daily at bedtime [facility] MELATONIN 5-10 MG CR-TABS MELATONIN-PYRIDOXI NE Inactive LORTAB 7.5-500 MG TABS take one po Q6 hours LORTAB 7.5-500 MG TABS HYDROCODONE-ACETAMINOPHEN Inactive AMOXICILLIN 500 MG CAPS 2 po BID x 10 days AMOXICILLIN 500 MG CAPS 896287 AMOXICILLIN Inactive AZITHROMYCIN 250 MG TABS take 2 po today then take 1 po days 2-5 AZITHROMYCIN 250 MG TABS 3487725 AZITHROMYCIN Inactiv e LEVAQUIN 500 MG TABS 1 pill by mouth daily LEVAQUIN 500 MG TABS 535337 LEVOFLOXACIN Inactive AUGMENTIN 875-125 MG TABS 1 pill by mouth twice daily AUGMENTIN 875-125 MG TABS 074858 AMOXICILLIN-POT CLAVULANATE Inacti ve Vital Signs Date [...] CBC - Chemistry sodium, serum 139 mmol/L 535-837 3040/10/31 potassium, serum 4.5 mmol/L 3.5-5.2 chloride, serum [...] mg/dL Encounters Code Encounter Date Provider Facility CPT-12119 Level 3 Est. Patient 12:56:37 CDT Bertrand marquez [facility] CPT-04565 Level 3 Est. Patient 19:12:03 CDT Yoli tolbert MD [facility]-39052 Level 3 Est. Patient 14:36:01 CDT Yoli tolbert MD [facility] CPT-72113 Level 2 Est. Patient 08:00:22 CDT Jcarlos dc MD [facility]-57368 Level 3 Est. Patient 19:06:55 CDT Bertrand marquez [facility] CPT-77060 Level 3 Est. 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 Patient 10:20:08 CDT Adolfo villasenor [facility] CPT-94034 Level 3 Est. Patient 13:45:20 CDT Sanket buckley [facility] CPT-09332 Level 3 Est. Patient 12:51:06 CDT Adolfo villasenor [facility] CPT-84254 Level 3 Est. 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 Patient 13:33:19 CDT Bertrand marquez [facility] Procedures Code Procedure Name Date Entry Date Standard Desc ription CPT-30595 Knee comp 4/> V 11:58:06 TAMPING 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
--- OUTSIDE RECORDS SUMMARY | 2019-11-13 10:20 | XMS REPORT | Clinical Summary ---
Author Author Admin, Enrique Adamson Organization [facility] Address Unknown Phone Unavailable Allergies, Adverse [...] 09/09/28 EDEMA LEG ICD-782.3 Inactive Adele Feldman TRAFFIC 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 201 01/01/02 SHORTNESS OF BREATH ICD-786.05 Inactive Yoli Mercado MD PhD RIB PAIN, RIGHT SIDED ICD-786.50 Inactive Yoli Mercado MD PhD KNEE PAIN, RIGHT ICD-719.46 Inactive Adele chiu TRAFFIC 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 Knee pain, left ICD-719.46 Inactive Adele damico TRAFFIC 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 Pharyngitis-Acute ICD-462 Inactive Bertrand Redmond DO Polyuria ICD-788.42 Inactive Yoli Mercado MD P hD Cellulitis, leg, right ICD-682.6 Inactive Yuki Deluna MD Foreign body, ear ICD-931 Inactive Yoli salazar MD PhD Fatigue ICD-780.79 Inactive Ike Deluna MD 201 12/01/06 Headache ICD-784.0 Inactive Adele Feldman TRAFFIC 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 2017 Cough ICD-786.2 Inactive Adele Feldman TRAFFIC 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 06/04 SINUSITIS, ACUTE ICD-461.9 Inactive Ike lange MD Fatigue ICD-780.79 Inactive Adele Feldman TRAFFIC 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 2017 Bronchitis acute with bronchospasm ICD-466.0 I nactive Adele Feldman TRAFFIC 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 Animal bite ICD-919.8 Inactive Adele Feldman LP N Mycoplasma infection ICD-041.81 Inactive Anit a Feldman TRAFFIC 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 Amenorrhea, secondary ICD-626.0 Inactive Ani ta Feldman TRAFFIC 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 Medication List Medication Instructions Start Date Stop Date Generic Name NDC Status Provider Patient Instruction LEVAQUIN 500 MG ORAL TABLET 1 tablet by mouth daily LEVOFLOXACIN 21588502211 Active Bertrand Patel DO Active ADDERALL 10 MG ORAL TABLET 1 tab twice daily 2 AMPHETAMINE-DEXTROAMPHETAMINE 95452108090 No Longer Active Nitza Phi llips Scribe Active ZITHROMAX Z-MARTIN 250 MG ORAL TABLET 2 today and then 1 daily for 4 days AZITHROMYCIN 64778107547 No Longer Active Nitza Osman lips Scribe Active BENZONATATE 200 MG ORAL CAPSULE 1 three times a day as neede d for cough BENZONATATE 20462635393 No Longer Active Nitza Brewer lips Scribe Active VITAMIN D3 13571 UNIT ORAL CAPSULE 1 pill Week x 4 mo [facility] for vitamin D deficiency/osteoporosis CHOLECALCIFEROL 55091308692 N o Longer Active Layla Mcmullen Active BACTROBAN 2 % EXTERNAL CREAM Apply to affected area BID for up to 10 days MUPIROCIN CALCIUM 58844356794 No Longer Active Ike Deluna MD Active CIPRO 500 MG ORAL TABLET 1 tablet by mouth twice daily CIPROFLOXACIN HCL 90012936872 No Longer Active Adriana Bender LPN Active AUGMENTIN 875-125 MG ORAL TABLET 1 po BID x 10 days 18/04/06 AMOXICILLIN-POT CLAVULANATE 87996168493 No Longer Active Adriana Bender LPN Active MODAFINIL 200 MG ORAL TABLET Take 1/2 tab po in the am and 1 /2 tab po at noon MODAFINIL 52389313960 Active Bertrand Rowan tive CYCLOBENZAPRINE HCL 10 MG ORAL TABLET Take 1 tab TID PRN for mus triston pain CYCLOBENZAPRINE HCL 90478614911 No Longer Active Bertrand Patel DO Active TESSALON PERLES 100 MG ORAL CAPSULE 1 tablet by mouth 3 times da juan pablo BENZONATATE 57275539105 No Longer Active Bertrand Patel DO Ac tive NEBULIZER use as directed NEBULIZERS 16363908335 No Longer Active Bertrand Patel DO Active ALBUTEROL SULFATE (2.5 MG/3ML) 0.083% INHALATION NEBUL IZATION SOLUTION one vial per nebulizer every 4-6 hours as needed ALBUTERO L SULFATE 62002999969 No Longer Active Bertrand Patel DO Active SYMBICORT 160-4.5 MCG/ACT INHALATION AEROSOL 2 puffs BID 9 BUDESONIDE-FORMOTEROL FUMARATE 11621450420 No Longer Active Bertrand Patel DO Active PREDNISONE 20 MG ORAL TABLET take 3 tabs daily for 3 d ays, 2 tabs daily for 3 days, 1 tab daily for 3 days, 1/2 tab daily for 3 days 08/02 PREDNISONE 73241643871 No Longer Active Silvia Arell COBOL APPLICATION DEVELOPER Active AZITHROMYCIN 250 MG ORAL TABLET Take 2 tabs po today then 1 tab po daily AZITHROMYCIN 83848552311 No Longer Active Silvia Arell COBOL APPLICATION DEVELOPER Active AUGMENTIN 875-125 MG ORAL TABLET 1 po BID x 10 days 19/07/13 AMOXICILLIN-POT CLAVULANATE 74373542899 No Longer Active Adriana Bender LPN Active CHEWABLE CALCIUM 500-200-40 MG-UNT-MCG ORAL TABLET CHEWABLE 1 chew tab bid CALCIUM-VITAMIN D-VITAMIN K 87099967514 Active Silvia Are ll COBOL APPLICATION DEVELOPER Active EQ COMPLETE MULTIVIT ADULT 50+ ORAL TABLET 1 tab po bid MULTIPLE VITAMINS-MINERALS 86605791551 Active Silvia Arell COBOL APPLICATION DEVELOPER Active HYDROCODONE-ACETAMINOPHEN 7.5-325 MG ORAL TABLET TAKE ONE TAB EVERY 6 HOURS BY MOUTH NEEDED FOR PAIN HYDROCODONE-ACETAMINOPHEN 004 66515485 Active Bertrand Patel DO Active LORTAB 7.5-500 MG ORAL TABLET take one po Q6 hours 201 09/12/01 HYDROCODONE-ACETAMINOPHEN 54396033236 No Longer Active Nirmal Robbins RN Active [facility] MELATONIN 5-10 MG ORAL TABLET EXTENDED RELEASE Jair e one by mouth daily at bedtime MELATONIN-PYRIDOXINE 46403636633 No Longer Acti ve Bertarnd Patel DO Active VITAMIN E 200 UNIT ORAL CAPSULE 1 cap po qd VITAM IN E 11565452479 No Longer Active Bertrand Patel DO Active B-12 1000 MCG ORAL CAPSULE 1 tab daily CYANOCOB ALAMIN 80503870880 No Longer Active Bertrand Patel DO Active METFORMIN HCL 500 MG ORAL TABLET 1 bid METFOR MIN HCL 47728339952 No Longer Active Bertrand Patel DO Active FUROSEMIDE 20 MG ORAL TABLET 1 pill by mouth daily if needed for edema FUROSEMIDE 09701434463 No Longer Active Bertrand Patel DO Active PRAVASTATIN SODIUM 20 MG ORAL TABLET 1 tablet by mouth daily at bedtime PRAVASTATIN SODIUM 65821480371 No Longer Active Bertrand Patel DO Active AUGMENTIN 875-125 MG ORAL TABLET 1 pill by mouth twice daily 201 09/10/00 AMOXICILLIN-POT CLAVULANATE 29146394457 No Longer Active Yoli Mercado MD PhD Active LEVAQUIN 500 MG ORAL TABLET 1 pill by mouth daily 2013 LEVOFLOXACIN 17265311192 No Longer Active Yoli Mercado MD PhD Acti ve AMLODIPINE BESYLATE 5 MG ORAL TABLET 1 tablet by mouth daily for blood pressure AMLODIPINE BESYLATE 49185286487 Active Bertrand Patel DO Active MICARDIS 80 MG ORAL TABLET 1 tablet daily for blood pressure 07/30 TELMISARTAN 90780500560 Active Bertrand Patel DO Active MICARDIS HCT 80-12.5 MG ORAL TABLET 1 qd TELMISARTAN-HCTZ 74172187477 No Longer Active Bertrand Patel DO Active CINNAMON ALPHA LIPOIC AC CMPLX CAPSULE by mouth twice a day in AM by mouth twice a day in PM ALPHA LIPOIC [id number] CA PS 52697444541 No Longer Active Bertrand Patel DO Active AZITHROMYCIN 500 MG INTRAVENOUS SOLUTION RECONSTITUTED 1 po q da y AZITHROMYCIN 29683172001 No Longer Active Bertrand Patel DO A ctive CYMBALTA 30 MG ORAL CAPSULE DELAYED RELEASE PARTICLES 1 cap by mouth daily DULOXETINE HCL 58375175904 No Longer Active Bertrand marquez DO Active CYMBALTA 60 MG ORAL CAPSULE DELAYED RELEASE PARTICLES 1 cap by mouth daily DULOXETINE HCL 30693602882 Active Bertrand Patel DO Active WELLBUTRIN 75 MG ORAL TABLET 2 times daily BUPR OPION HCL 61610122174 No Longer Active Bertrand Patel DO Active PROAIR HFA 108 (90 Base) MCG/ACT INHALATION AEROSOL SO LUTION take one to two puffs po Q4-6 hour prn cough and shortness of breath ALBUTEROL SULFATE 01453093061 Active Silvia Taylor JENN Active AZITHROMYCIN 250 MG ORAL TABLET take 2 po today then take 1 po days 2-5 AZITHROMYCIN 09081524280 No Longer Active Adolfo OSORIO Active PERMETHRIN 5 % EXTERNAL CREAM apply neck to toes tonig ht and then rinse off in morning. repeat at 7 days PERMETHRIN 75324255265 No Longer Active Adolfo OSORIO Active AMOXICILLIN 500 MG ORAL CAPSULE 2 po BID x 10 days 201 07/15/00 AMOXICILLIN 61457040430 No Longer Active Yoli Mercado MD PhD Acti ve ALPRAZOLAM 0.5 MG ORAL TABLET 1 tab by mouth tid ALPRAZOLAM 81113837389 Active Bertrand Patel DO Active INSUPEN ULTRAFIN 31G X 6 MM USE DIRECTED INSULIN PEN NEEDLE 20010915539 No Longer Active Bertrand Patel DO Active TRANSDERM-SCOP (1.5 MG) 1 MG/3DAYS TRANSDERMAL PATCH 7 2 HOUR 1 patch applied behind ear q 3 day SCOPOLAMINE BASE 49658844104 No Lo nger Active Bertrand Patel DO Active MACRODANTIN 100 MG ORAL CAPSULE one p.o. b.i.d. x2 weeks NITROFURANTOIN MACROCRYSTAL 81755854512 No Longer Active Bertrand Patel DO Active MACRODANTIN 100 MG ORAL CAPSULE one p.o. b.i.d. x2 weeks MACRODANTIN 100 MG ORAL CAPSULE 9763874 NITROFURANTOIN MACROCRYSTAL Inactive TRANSDERM-SCOP (1.5 MG) 1 [...] days PERMETHRIN 5 % EXTER NAL CREAM 498585 PERMETHRIN Inactive WELLBUTRIN 75 MG ORAL TABLET 2 times daily WELLBUTRIN 75 MG ORAL TABLET 578676 BUPROPION HCL Inactive CYMBALTA 30 MG ORAL CAPSULE DELAYED RELEASE PARTICLES 1 cap by mouth daily CYMBALTA 30 MG ORAL CAPSULE DELAYED RELE ASE PARTICLES 494367 DULOXETINE HCL Inactive AZITHROMYCIN 500 MG INTRAVENOUS SOLUTION RECONSTITUTED 1 po q da y AZITHROMYCIN 500 MG INTRAVENOUS SOLUTION RECONSTITUTED 06913 537424 AZITHROMYCIN Inactive CINNAMON ALPHA LIPOIC AC CMPLX CAPSULE by mouth twice a day in AM by mouth twice a day in PM CINNAMON ALPHA LIPOIC AC CMPLX CAPSULE ALPHA LIPOIC [id number] CAPS Inactive MICARDIS HCT 80-12.5 MG ORAL TABLET 1 qd 07/30 MICARDIS HCT 80-12.5 MG ORAL TABLET 813019 TELMISARTAN-HCTZ Inactive PRAVASTATIN SODIUM 20 MG ORAL TABLET 1 tablet by mouth daily at bedtime PRAVASTATIN SODIUM 20 MG ORAL TABLET 267799 PRAVASTATIN SODIUM Inactive FUROSEMIDE 20 MG ORAL TABLET 1 pill by mouth daily if needed for edema FUROSEMIDE 20 MG ORAL TABLET 240555 FUROSEMIDE Inactive METFORMIN HCL 500 MG ORAL TABLET 1 bid METFORMIN HCL 500 MG ORAL TABLET 224016 METFORMIN HCL Inactive B-12 1000 MCG ORAL CAPSULE 1 tab daily B -12 1000 MCG ORAL CAPSULE CYANOCOBALAMIN Inactive VITAMIN E 200 UNIT ORAL CAPSULE 1 cap po qd 1 VITAMIN E 200 UNIT ORAL CAPSULE 9001865 VITAMIN E Inactive [facility] MELATONIN 5-10 MG [...] po daily AZITHROMYCIN 250 MG ORAL TABLET 609803 AZITHROMY BERNARDO Inactive SYMBICORT 160-4.5 MCG/ACT INHALATION AEROSOL 2 puffs BID 9 SYMBICORT 160-4.5 MCG/ACT INHALATION AEROSOL BUDESONIDE-FORM OTEROL FUMARATE Inactive ALBUTEROL SULFATE (2.5 MG/3ML) 0.083% INHALATION NEBUL IZATION SOLUTION one vial per nebulizer every 4-6 hours as needed ALBUTEROL SULFATE (2.5 MG/3ML) 0.083% INHALATION NEBULIZATION SOLUTION 045753 ALBUTER OL SULFATE Inactive NEBULIZER use as directed NEBULIZER NEBULI ZERS Inactive TESSALON PERLES 100 MG ORAL CAPSULE 1 tablet by mouth 3 times da juan pablo TESSALON PERLES 100 MG ORAL CAPSULE 023858 BENZONATATE Inactive CYCLOBENZAPRINE HCL 10 MG ORAL TABLET Take 1 tab TID PRN for mus triston pain CYCLOBENZAPRINE HCL 10 MG ORAL TABLET 106860 CYCLOBENZA ANUJA HCL Inactive AUGMENTIN 875-125 MG ORAL TABLET 1 po BID x 10 days 20 18/04/06 AUGMENTIN 875-125 MG ORAL TABLET 301998 AMOXICILLIN-POT CLAVULANATE Inactive BACTROBAN 2 % EXTERNAL CREAM Apply to affected area BID for up to 10 days BACTROBAN 2 % EXTERNAL CREAM 776732 MUPIROCIN CA LCIUM Inactive VITAMIN D3 95944 UNIT ORAL CAPSULE 1 pill Week x 4 mo nt for vitamin D deficiency/osteoporosis VITAMIN D3 70300 UNIT ORAL CAPSULE CHOLECALCIFEROL Inactive BENZONATATE 200 MG ORAL CAPSULE 1 three times a day as neede d for cough BENZONATATE 200 MG ORAL CAPSULE 716408 BENZONATA TE Inactive ZITHROMAX Z-MARTIN 250 MG ORAL TABLET 2 today and then 1 daily for 4 days ZITHROMAX Z-MARTIN 250 MG ORAL TABLET 990265 AZITHR OMYCIN Inactive ADDERALL 10 MG ORAL TABLET 1 tab twice daily 2 ADDERALL 10 MG ORAL TABLET 048329 AMPHETAMINE-DEXTROAMPHETAMINE Inactive AMOXICILLIN 500 MG ORAL CAPSULE 2 po BID x 10 days 201 07/15/00 AMOXICILLIN 500 MG ORAL CAPSULE 074497 AMOXICILLIN Inactive AZITHROMYCIN 250 MG ORAL TABLET take 2 po today then take 1 po days 2-5 AZITHROMYCIN 250 MG ORAL TABLET 537689 AZITHROMY BERNARDO Inactive LEVAQUIN 500 MG ORAL TABLET 1 pill by mouth daily 2013 LEVAQUIN 500 MG ORAL TABLET 717184 LEVOFLOXACIN Inactive AUGMENTIN 875-125 MG ORAL TABLET 1 pill by mouth twice daily 201 09/10/00 AUGMENTIN 875-125 MG ORAL TABLET 336400 AMOXICILLIN-POT CLAVULANATE Inactive AUGMENTIN 875-125 MG ORAL TABLET 1 po BID x 10 days 20 19/07/13 AUGMENTIN 875-125 MG ORAL TABLET 096082 AMOXICILLIN-POT CLAVULANATE Inactive PREDNISONE 20 MG ORAL TABLET take 3 tabs daily for 3 d ays, 2 tabs daily for 3 days, 1 tab daily for 3 days, 1/2 tab daily for 3 days 08/02 PREDNISONE 20 MG ORAL TABLET 452867 PREDNISONE Inactive CIPRO 500 MG ORAL TABLET 1 tablet by mouth twice daily CIPRO 500 MG ORAL TABLET 158362 CIPROFLOXACIN HCL Inactive Vital Signs Date Name [...] Description Lab Report: CBC, Comp. Metabolic Panel, BA1C - Chemistry sodium, serum 143 mmol/L 419-928 3438/01/02 carbon dioxide, venous blood 31.7 mmol/L 21.0-32 [...] 0-19 Encounters Code Encounter Date Provider Facility CPT-34601 Level 3 Est. Patient 11:40:23 CDT Bertrand marquez DO [facility] CPT-49428 Level 4 Est. 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 Patient 12:31:54 CDT Bertrand marquez DO [facility] CPT-17704 Level 3 Est. Patient 11:27:00 [employer]NSHIP Ike Deluna MD [facility] CPT-32912 Level 3 Est. Patient 08:50:57 [employer] Silvia gagnon APRN [facility] CPT-88732 Level 3 Est. Patient 10:04:13 CDT Bertrand [facility]-23391 Level 4 Est. Patient 16:02:10 HELP [employer]K INTERNSHIP Silvia Are ll [facility] CPT-01841 Level 3 Est. Patient 13:04:54 HEL[employer] INTERNSHIP Silvia Are ll [facility]-97385 Level 3 Est. Patient 12:56:37 CDT Bertrand marquez [facility]-98646 Level 3 Est. Patient 19:12:03 CDT Yoli tolbert MD [facility]-73168 Level 3 Est. Patient 14:36:01 CDT Yoli tolbert MD [facility]-34008 Level 2 Est. Patient 08:00:22 CDT Jcarlos dc MD [facility]-40246 Level 3 Est. Patient 19:06:[address] [facility] CPT-15845 Level 3 Est. Patient 10:08:23 [employer]K [employer]NSH[employer] Bertrand marquez [facility]-36983 Level 3 Est. Patient 16:37:54 HEL[employer]NSHIP Bertrand marquez [facility]-53406 Level 3 Est. Patient 11:31:59 HEL[employer] INTERNSHIP Bertrand marquze [facility] CPT-96923 Level 3 Est. Patient 10:20:08 CDT Adolfo villasenor [facility]-19318 Level 3 Est. Patient 13:45:20 CDT Sanket buckley [facility]-58413 Level 3 Est. Patient 12:51:06 CDT Adolfo villasenor [facility]-20323 Level 3 Est. Patient 11:22:51 HEL[employer]K [employer]NSHIP Yoli tolbert MD [facility]49657 Level 3 Est. Patient 13:33:[address] [facility] Procedures Code Procedure Name Date Entry Date Standard Desc ription CPT-57843 Wound Culture - LAB USE ONLY 15:45:25 CDT 2 CPT-99400 Venipuncture Draw Fee 10:23:01 CDT CPT-J0696 Rocephin 1000 mg (Ceftriaxone) 16:20:30 [employer] CPT-15095 Abx/Therapy Injection 16:20:29 [employer] CPT-J0696 Rocephin 1gm Inj Solr 15:51:59 [employer] CPT-60151 Chest 2V Frontal and Lat 15:20:28 [employer] 07/22 CPT-60890 Breathing Tx 14:51:55 [employer] CPT-62992 Breathing Tx 09:57:16 [employer] CPT-34078 Knee comp 4/> V 11:58:06 [employer]
--- OUTSIDE RECORDS SUMMARY | 2019-11-13 10:20 | XMS REPORT | Clinical Summary ---
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, unspecified Fatigue 780.79 Active Silvia Arnold [...] tablet by mouth twice daily CIPROFLOXACIN HCL 68172948693 No Longer Active Adriana Bender LPN Active AUGMENTIN 875-125 MG TAB 1 po BID x 10 days AMOXICILLIN- POT CLAVULANATE 78428786770 No Longer Active Adriana Bender LPN Active BACTROBAN 2 % CREAM Apply to affected area BID for up to 10 days 20 18/03/27 MUPIROCIN CALCIUM 01792836739 Active Silvia Arnold APRN Act jairo MODAFINIL 200 MG ORAL TABS Take 1/2 tab po in the am and 1/2 tab po at noon MODAFINIL 09510976348 Active Silvia Arnold APRN Active CYCLOBENZAPRINE HCL 10 MG TABS Take 1 tab TID PRN for muscle pain CYCLOBENZAPRINE HCL 62747054561 No Longer Active Bertrand Patel DO Ac tive TESSALON PERLES 100 MG CAP 1 tablet by mouth 3 times daily 07/07 BENZONATATE 17844598665 No Longer Active Bertrand Patel DO Ac tive NEBULIZER MISC use as directed NEBULIZERS 635122 60947 No Longer Active Bertrand Patel DO Active ALBUTEROL SULFATE 0.083 % NEBU SOLN one vial per nebul izer every 4-6 hours as needed ALBUTEROL SULFATE 43423125096 No Longer Active Bertrand Patel DO Active SYMBICORT 160-4.5 MCG/ACT AERO 2 puffs BID BUDESONIDE- FORMOTEROL FUMARATE 10399852978 No Longer Active Bertrand Patel DO Ac tive PREDNISONE 20 MG TAB take 3 tabs daily for 3 days , 2 tabs daily for 3 days, 1 tab daily for 3 days, 1/2 tab daily for 3 days P REDNISONE 85588453301 No Longer Active Silvia Arnold APRN Active AZITHROMYCIN 250 MG ORAL TABS Take 2 tabs po today then 1 ta b po daily AZITHROMYCIN 08541487116 No Longer Active Silvia gavin APRN Active AUGMENTIN 875-125 MG TAB 1 po BID x 10 days AMOXICILLIN- POT CLAVULANATE 31517754408 No Longer Active Adriana Bender LPN Active CHEWABLE CALCIUM 500-200-40 MG-UNT-MCG ORAL CHEW 1 chew tab bid 201 11/03/03 CALCIUM-VITAMIN D-VITAMIN K 21782337932 Active Slivia Arnold APRN Active EQ COMPLETE MULTIVIT ADULT 50+ ORAL TABS 1 tab po bid MULTIPLE VITAMINS-MINERALS 01896557054 Active Silvia Arnold APRN Act jairo HYDROCODONE-ACETAMINOPHEN 7.5-325 MG TABS TAKE ONE TAB EVERY 6 HOURS BY MOUTH NEEDED FOR PAIN HYDROCODONE-ACETAMINOPHEN 47856451739 Acti ve Lizy العلي Active LORTAB 7.5-500 MG TABS take one po Q6 hours HYDROCODONE-ACETAMINOPHEN No Longer Active Nirmal Robbins RN Active [facility] MELATONIN 5-10 MG CR-TABS Take one by mouth daily at bedtime MELATONIN-PYRIDOXINE 25325846566 No Longer Active Bertrand Patel DO Active VITAMIN E 200 UNIT CAPS 1 cap po qd VITAMIN E 316 67089887 No Longer Active Bertrand Patel DO Active B-12 1000 MCG CAPS 1 tab daily CYANOCOBALAMIN 31 449860009 No Longer Active Bertrand Patel DO Active METFORMIN HCL 500 MG TABS 1 bid METFORMIN HCL 93763716177 No Longer Active Bertrand Patel DO Active FUROSEMIDE 20 MG TABS 1 pill by mouth daily if needed for edema FUROSEMIDE 35000045739 No Longer Active Bertrand Patel DO Act jairo PRAVASTATIN SODIUM 20 MG TABS 1 tablet by mouth daily at bedtime PRAVASTATIN SODIUM 14974220887 No Longer Active Bertrand Patel DO Active AUGMENTIN 875-125 MG TABS 1 pill by mouth twice daily AMOXICILLIN-POT CLAVULANATE 15461601355 No Longer Active Yoli Mercado MD PhD Active LEVAQUIN 500 MG TABS 1 pill by mouth daily LEVO FLOXACIN 25129932057 No Longer Active Yoli Mercado MD PhD Active AMLODIPINE BESYLATE 5 MG TABS 1 tablet by mouth daily for bl ood pressure AMLODIPINE BESYLATE 11519602899 Active Keysha Jones MA Active MICARDIS 80 MG TABS 1 tablet daily for blood pressure TELMISARTAN 61776685576 Active Keysha Jones MA Active MICARDIS HCT 80-12.5 MG TABS 1 qd TELMISARTA N-HCTZ 91444841786 No Longer Active Bertrand Patel DO Active CINNAMON ALPHA LIPOIC AC CMPLX CAPS by mouth twice a d ay in AM by mouth twice a day in PM ALPHA LIPOIC [id number] CAPS 308621 20147 No Longer Active Bertrand Patel DO Active AZITHROMYCIN 500 MG SOLR 1 po q day AZITHROMYCI N 10728486119 No Longer Active Bertrand Patel DO Active CYMBALTA 30 MG CPEP 1 cap by mouth daily DULOXE CATHI HCL 61454419441 No Longer Active Bertrand Patel DO Active CYMBALTA 60 MG CPEP 1 cap by mouth daily DULOXE CATHI HCL 45232506293 Active Keysha Jones MA Active WELLBUTRIN 75 MG TABS 2 times daily BUPROPION H CL 30163998657 No Longer Active Bertrand Patel DO Active PROAIR HFA 108 (90 BASE) MCG/ACT AERS take one to two puffs po Q4-6 hour prn cough and shortness of breath ALBUTEROL SULFATE 0196313686 2 Active Silvia Arnold SCHEDULE ANALYST Active AZITHROMYCIN 250 MG TABS take 2 po today then take 1 po days 2-5 AZITHROMYCIN 93529524535 No Longer Active Adolfo OSORIO Active PERMETHRIN 5 % CREA apply neck to toes tonight a nd then rinse off in morning. repeat at 7 days PERMETHRIN 20190525866 No Longer Active Adolfo OSORIO Active AMOXICILLIN 500 MG CAPS 2 po BID x 10 days AMOX ICILLIN 58874992893 No Longer Active Yoli Mercado MD PhD Active ALPRAZOLAM 0.5 MG TAB 1 tab by mouth tid ALPRAZOL AM 66503361309 Active Nitza Mullins RPT,RMA Active INSUPEN ULTRAFIN 31G X 6 MM MISC USE DIRECTED 03/04 INSULIN PEN NEEDLE 09379868429 No Longer Active Bertrand Patel DO Active TRANSDERM-SCOP 1.5 MG PT72 1 patch applied behind ear q 3 day 20 04/13/28 SCOPOLAMINE BASE 36152513104 No Longer Active Bertrand Patel DO Active MACRODANTIN 100 MG CAPS one p.o. b.i.d. x2 weeks 03/04 NITROFURANTOIN MACROCRYSTAL 39141627921 No Longer Active Bertrand Patel DO Active MACRODANTIN 100 MG CAPS one p.o. b.i.d. x2 weeks 03/04 MACRODANTIN 100 MG CAPS 4457296 NITROFURANTOIN MACROCRYSTAL Inactive TRANSDERM-SCOP 1.5 MG PT72 [...] at 7 days PERMETHRIN 5 % CREA 614929 PERMETHRIN Inactive WELLBUTRIN 75 MG TABS 2 times daily WELLBUTRIN 75 MG TABS BUPROPION HCL Inactive CYMBALTA 30 MG CPEP 1 cap by mouth daily CYMBALTA 30 MG CPEP 909865 DULOXETINE HCL Inactive AZITHROMYCIN 500 MG SOLR 1 po q day ALTA THROMYCIN 500 MG SOLR 62189572932 AZITHROMYCIN Inactive CINNAMON ALPHA LIPOIC AC CMPLX CAPS by mouth twice a d ay in AM by mouth twice a day in PM CINNAMON ALPHA LIPOIC AC CMPLX CAPS ALPHA LIPOIC THEU-TO-EZLHJNRG CAPS Inactive MICARDIS HCT 80-12.5 MG TABS 1 qd MICARDI S HCT 80-12.5 MG TABS 821598 TELMISARTAN-HCTZ Inactive PRAVASTATIN SODIUM 20 MG TABS 1 tablet by mouth daily at bedtime PRAVASTATIN SODIUM 20 MG TABS 526991 PRAVASTATIN SODIUM Inactive FUROSEMIDE 20 MG TABS 1 pill by mouth daily if needed for edema FUROSEMIDE 20 MG TABS 884880 FUROSEMIDE Inactive METFORMIN HCL 500 MG TABS 1 bid METFORMIN HCL 500 MG TABS 232923 METFORMIN HCL Inactive B-12 1000 MCG CAPS 1 tab daily B-12 1000 MCG CAP S CYANOCOBALAMIN Inactive VITAMIN E 200 UNIT CAPS 1 cap po qd VITAMIN E 2 00 UNIT CAPS 2933784 VITAMIN E Inactive [facility] MELATONIN 5-10 MG CR-TABS Take one by mouth daily at bedtime [facility] MELATONIN 5-10 MG CR-TABS MELATONIN-PYRIDOXI NE Inactive LORTAB 7.5-500 MG TABS take one po Q6 hours LORTAB 7.5-500 MG TABS HYDROCODONE-ACETAMINOPHEN Inactive AZITHROMYCIN 250 MG ORAL TABS Take 2 tabs po today then 1 ta b po daily AZITHROMYCIN 250 MG ORAL TABS 8293040 AZITHROMYCI N Inactive SYMBICORT 160-4.5 MCG/ACT AERO 2 puffs BID SYMBICORT 160- 4.5 MCG/ACT AERO BUDESONIDE-FORMOTEROL FUMARATE Inactive ALBUTEROL SULFATE 0.083 % NEBU SOLN one vial per nebul izer every 4-6 hours as needed ALBUTEROL SULFATE 0.083 % NEBU SOLN 68758 8 ALBUTEROL SULFATE Inactive NEBULIZER MISC use as directed NEBULIZER MISC NEBULIZERS Inactive TESSALON PERLES 100 MG CAP 1 tablet by mouth 3 times daily 07/07 TESSALON PERLES 100 MG CAP 226125 BENZONATATE Inact jairo CYCLOBENZAPRINE HCL 10 MG TABS Take 1 tab TID PRN for muscle pain CYCLOBENZAPRINE HCL 10 MG TABS 489559 CYCLOBENZAPRINE HCL Inactive AUGMENTIN 875-125 MG TAB 1 po BID x 10 days AUGMENTIN 875- 125 MG TAB 461397 AMOXICILLIN-POT CLAVULANATE Inactive AMOXICILLIN 500 MG CAPS 2 po BID x 10 days AMOXICILLIN 500 MG CAPS 429287 AMOXICILLIN Inactive AZITHROMYCIN 250 MG TABS take 2 po today then take 1 po days 2-5 AZITHROMYCIN 250 MG TABS 8854403 AZITHROMYCIN Inactiv e LEVAQUIN 500 MG TABS 1 pill by mouth daily LEVAQUIN 500 MG TABS 185071 LEVOFLOXACIN Inactive AUGMENTIN 875-125 MG TABS 1 pill by mouth twice daily AUGMENTIN 875-125 MG TABS 248963 AMOXICILLIN-POT CLAVULANATE Inacti ve AUGMENTIN 875-125 MG TAB 1 po BID x 10 days AUGMENTIN 875- 125 MG TAB 512022 AMOXICILLIN-POT CLAVULANATE Inactive PREDNISONE 20 MG TAB take 3 tabs daily for 3 days , 2 tabs daily for 3 days, 1 tab daily for 3 days, 1/2 tab daily for 3 days PREDNISONE 20 MG TAB 988258 PREDNISONE Inactive CIPRO 500 MG TAB 1 tablet by mouth twice daily CIPRO 500 MG TAB 209309 CIPROFLOXACIN HCL Inactive Vital Signs Date Name [...] 11 .6-14.8 platelet count 339 10^3/MM^3 10*3/mm3 309-528 2460/02/19 erythrocyte (RBC) count 3.95 10^6/MM^3 10*6/mm3 4.04-5.4 [...] 8.5-10.1 bilirubin, serum, total 0.40 mg/dL 0.00-1.00 aspartate aminotransferase (SGOT), serum 18 U/L 15-37 sodium, serum 142 mmol/L 713-096 1640/07/22 carbon dioxide, venous blood 33.1 mmol/L 21.0-32 .0 potassium, serum 4.6 mmol/L 3.5-5.2 chloride, serum 105 mmol/L 98-107 blood glucose 96 mg/dL 65-110 urea nitrogen, blood 16 mg/dL 7-18 creatinine, serum 0.69 mg/dL 0.55-1.30 alanine aminotransferase (SGPT), serum 22 U/L 12-78 hemoglobin A1C, blood, as % of total hemoglobin 5.8 % 4.3-6.0 cholesterol, serum 200 mg/dL 454-576 6782/07/22 triglyceride, serum, fasting 56 mg/dL 30-200 HDL [...] Negative;Positive Encounters Code Encounter Date Provider Facility CPT-16121 Level 3 Est. Patient 08:50:57 CHIEF PROCUREMENT OFFICER Silvia And dmitriy [facility] CPT-22861 Level 3 Est. Patient 10:04:13 CDT Bertrand marquez [facility] CPT-94253 Level 4 Est. Patient 16:02:10 CHIEF PROCUREMENT OFFICER Silvia And dmitriy [facility] CPT-85487 Level 3 Est. Patient 13:04:54 CHIEF PROCUREMENT OFFICER Dangelo [facility] CPT-40762 Level 3 Est. Patient 12:56:37 CDT Betrrand marquez [facility] CPT-53221 Level 3 Est. Patient 19:12:03 CDT Yoli tolbert MD PhD [facility] CPT-41650 Level 3 Est. Patient 14:36:01 CDT Yoli tolbert MD PhD [facility] CPT-48160 Level 2 Est. Patient 08:00:22 CDT Jcarlos dc MD [facility] CPT-43874 Level 3 Est. Patient 19:06:55 CDT Bertrand marquez [facility] CPT-70136 Level 3 Est. Patient 10:08:23 CHIEF PROCUREMENT OFFICER Bertrand marquez [facility] CPT-00799 Level 3 Est. Patient 16:37:54 CHIEF PROCUREMENT OFFICER Bertrand marquez [facility] CPT-29951 Level 3 Est. Patient 11:31:59 CHIEF PROCUREMENT OFFICER Bertrand marquez [facility] CPT-86763 Level 3 Est. Patient 10:20:[address] [facility] CPT-41877 Level 3 Est. Patient 13:45:[address] [facility] CPT-08210 Level 3 Est. Patient 12:51:[address] [facility] CPT-35735 Level 3 Est. Patient 11:22:51 CHIEF PROCUREMENT OFFICER Yoli tolbert MD [facility] CPT-05935 Level 3 Est. Patient 13:33:19 CDT Bertrand marquez [facility] Procedures Code Procedure Name Date Entry Date Standard Desc ription CPT-40299 Wound Culture - LAB USE ONLY 15:45:25 CDT 2 CPT-09103 Venipuncture Draw Fee 10:23:01 CDT CPT-J0696 Rocephin 1000 mg (Ceftriaxone) 16:20:30 CHIEF PROCUREMENT OFFICER CPT-01880 Abx/Therapy Injection 16:20:29 CHIEF PROCUREMENT OFFICER CPT-J0696 Rocephin 1gm Inj Solr 15:51:59 CHIEF PROCUREMENT OFFICER CPT-70154 Chest 2V Frontal and Lat 15:20:28 CHIEF PROCUREMENT OFFICER 07/22 CPT-93059 Breathing Tx 14:51:55 CHIEF PROCUREMENT OFFICER CPT-88654 Breathing Tx 09:57:16 CHIEF PROCUREMENT OFFICER CPT-94863 Knee comp 4/> V 11:58:06 CHIEF PROCUREMENT OFFICER
--- OUTSIDE RECORDS SUMMARY | 2019-11-13 10:21 | XMS REPORT | Clinical Summary ---
Author Author Admin, Enrique Adamson Organization [facility] Address Unknown Phone Unavailable Allergies, [...] ICD-780.79 Inactive Ike Deulna MD 201 12/01/06 SINUSITIS, ACUTE ICD-461.9 Inactive Ike lange MD Medication List Medication Instructions Start Date Stop Date Generic Name NDC Status Provider Patient Instruction BENZONATATE 200 MG ORAL CAPS 1 three times a day as needed for c ough BENZONATATE 21610897234 Active Ike Deluna MD Acti ve ZITHROMAX Z-MARTIN 250 MG TABS 2 today and then 1 daily for 4 days 201 12/01/06 AZITHROMYCIN 47846192890 Active Ike Deluna MD Active ADDERALL 10 MG ORAL TABS 1 tab twice daily AMPHETAMINE-DEXTROAMPHETAMINE 49906388318 Active Ike Deluna MD Active BACTROBAN 2 % CREAM Apply to affected area BID for up to 10 days MUPIROCIN CALCIUM 84041555750 No Longer Active Ike Deluna MD Active CIPRO 500 MG TAB 1 tablet by mouth twice daily CIPROFLOXACIN HCL 77945500364 No Longer Active Adriana Bender LPN Active AUGMENTIN 875-125 MG TAB 1 po BID x 10 days AMOXICILLIN- POT CLAVULANATE 51121776643 No Longer Active Adriana Bender LPN Active MODAFINIL 200 MG ORAL TABS Take 1/2 tab po in the am and 1/2 tab po at noon MODAFINIL 40959933522 Active Silvia Arnold APRN Active CYCLOBENZAPRINE HCL 10 MG TABS Take 1 tab TID PRN for muscle pain CYCLOBENZAPRINE HCL 30183316534 No Longer Active Bertrand Patel DO Ac tive TESSALON PERLES 100 MG CAP 1 tablet by mouth 3 times daily 07/07 BENZONATATE 09294292622 No Longer Active Bertrand Patel DO Ac tive NEBULIZER MISC use as directed NEBULIZERS 704154 64057 No Longer Active Bertrand Patel DO Active ALBUTEROL SULFATE 0.083 % NEBU SOLN one vial per nebul izer every 4-6 hours as needed ALBUTEROL SULFATE 96201661181 No Longer Active Bertrand Patel DO Active SYMBICORT 160-4.5 MCG/ACT AERO 2 puffs BID BUDESONIDE- FORMOTEROL FUMARATE 23565550641 No Longer Active Bertrand Patel DO Ac tive PREDNISONE 20 MG TAB take 3 tabs daily for 3 days , 2 tabs daily for 3 days, 1 tab daily for 3 days, 1/2 tab daily for 3 days P REDNISONE 55739687677 No Longer Active Silvia Arnold APRN Active AZITHROMYCIN 250 MG ORAL TABS Take 2 tabs po today then 1 ta b po daily AZITHROMYCIN 62374592402 No Longer Active Silvia gavin RES COUNSELOR Active AUGMENTIN 875-125 MG TAB 1 po BID x 10 days AMOXICILLIN- POT CLAVULANATE 82731519006 No Longer Active Adriana Bender LPN Active CHEWABLE CALCIUM 500-200-40 MG-UNT-MCG ORAL CHEW 1 chew tab bid 201 11/03/03 CALCIUM-VITAMIN D-VITAMIN K 07395983974 Active Silvia Arnold APRN Active EQ COMPLETE MULTIVIT ADULT 50+ ORAL TABS 1 tab po bid MULTIPLE VITAMINS-MINERALS 53369510793 Active Silvia Arnold APRN Act jairo HYDROCODONE-ACETAMINOPHEN 7.5-325 MG TABS TAKE ONE TAB EVERY 6 HOURS BY MOUTH NEEDED FOR PAIN HYDROCODONE-ACETAMINOPHEN 05023629105 Acti raheel العلي Active LORTAB 7.5-500 MG TABS take one po Q6 hours HYDROCODONE-ACETAMINOPHEN No Longer Active Nirmal Robbins RN Active [facility] MELATONIN 5-10 MG CR-TABS Take one by mouth daily at bedtime MELATONIN-PYRIDOXINE 95936032505 No Longer Active Bertrand Patel DO Active VITAMIN E 200 UNIT CAPS 1 cap po qd VITAMIN E 316 65715966 No Longer Active Bertrand Patel DO Active B-12 1000 MCG CAPS 1 tab daily CYANOCOBALAMIN 31 636532172 No Longer Active Bertrand Patel DO Active METFORMIN HCL 500 MG TABS 1 bid METFORMIN HCL 05513771878 No Longer Active Bertrand Patel DO Active FUROSEMIDE 20 MG TABS 1 pill by mouth daily if needed for edema FUROSEMIDE 05634687921 No Longer Active Bertrand Patel DO Act jairo PRAVASTATIN SODIUM 20 MG TABS 1 tablet by mouth daily at bedtime PRAVASTATIN SODIUM 27228953726 No Longer Active Bertrand Patel DO Active AUGMENTIN 875-125 MG TABS 1 pill by mouth twice daily AMOXICILLIN-POT CLAVULANATE 11357789895 No Longer Active Yoli Mercado MD PhD Active LEVAQUIN 500 MG TABS 1 pill by mouth daily LEVO FLOXACIN 64058959431 No Longer Active Yoli Mercado MD PhD Active AMLODIPINE BESYLATE 5 MG TABS 1 tablet by mouth daily for bl ood pressure AMLODIPINE BESYLATE 77610545923 Active Keysha Jones MA Active MICARDIS 80 MG TABS 1 tablet daily for blood pressure TELMISARTAN 88469642167 Active Keysha Jones MA Active MICARDIS HCT 80-12.5 MG TABS 1 qd TELMISARTA N-HCTZ 16627008778 No Longer Active Bertrand Patel DO Active CINNAMON ALPHA LIPOIC AC CMPLX CAPS by mouth twice a d ay in AM by mouth twice a day in PM ALPHA LIPOIC [id number] CAPS 695916 98010 No Longer Active Bertrand Patel DO Active AZITHROMYCIN 500 MG SOLR 1 po q day AZITHROMYCI N 05649898344 No Longer Active Bertrand Patel DO Active CYMBALTA 30 MG CPEP 1 cap by mouth daily DULOXE CATHI HCL 24688063443 No Longer Active Bertrand Patel DO Active CYMBALTA 60 MG CPEP 1 cap by mouth daily DULOXE CATHI HCL 33765488065 Active Keysha Jones MA Active WELLBUTRIN 75 MG TABS 2 times daily BUPROPION H CL 36009371714 No Longer Active Bertrand Patel DO Active PROAIR HFA 108 (90 BASE) MCG/ACT AERS take one to two puffs po Q4-6 hour prn cough and shortness of breath ALBUTEROL SULFATE 2067465362 2 Active Silvia Arnold APRN Active AZITHROMYCIN 250 MG TABS take 2 po today then take 1 po days 2-5 AZITHROMYCIN 91987558127 No Longer Active Adolfo OSORIO Active PERMETHRIN 5 % CREA apply neck to toes tonight a nd then rinse off in morning. repeat at 7 days PERMETHRIN 32493465304 No Longer Active Adolfo OSORIO Active AMOXICILLIN 500 MG CAPS 2 po BID x 10 days AMOX ICILLIN 29821849152 No Longer Active Yoli Mercado MD PhD Active ALPRAZOLAM 0.5 MG TAB 1 tab by mouth tid ALPRAZOL AM 29759261149 Active Nitza Mullins RPT,RMA Active INSUPEN ULTRAFIN 31G X 6 MM MISC USE DIRECTED 03/04 INSULIN PEN NEEDLE 29536500183 No Longer Active Bertrand Patel DO Active TRANSDERM-SCOP 1.5 MG PT72 1 patch applied behind ear q 3 day 20 04/13/28 SCOPOLAMINE BASE 63143569211 No Longer Active Bertrand Patel DO Active MACRODANTIN 100 MG CAPS one p.o. b.i.d. x2 weeks 03/04 NITROFURANTOIN MACROCRYSTAL 19251523572 No Longer Active Bertrand Patel DO Active MACRODANTIN 100 MG CAPS one p.o. b.i.d. x2 weeks 03/04 MACRODANTIN 100 MG CAPS 1230932 NITROFURANTOIN MACROCRYSTAL Inactive TRANSDERM-SCOP 1.5 MG PT72 [...] at 7 days PERMETHRIN 5 % CREA 642743 PERMETHRIN Inactive WELLBUTRIN 75 MG TABS 2 times daily WELLBUTRIN 75 MG TABS BUPROPION HCL Inactive CYMBALTA 30 MG CPEP 1 cap by mouth daily CYMBALTA 30 MG CPEP 782144 DULOXETINE HCL Inactive AZITHROMYCIN 500 MG SOLR 1 po q day ALTA THROMYCIN 500 MG SOLR 40485964210 AZITHROMYCIN Inactive CINNAMON ALPHA LIPOIC AC CMPLX CAPS by mouth twice a d ay in AM by mouth twice a day in PM CINNAMON ALPHA LIPOIC AC CMPLX CAPS ALPHA LIPOIC JPUP-EC-CLSUHIMN CAPS Inactive MICARDIS HCT 80-12.5 MG TABS 1 qd MICARDI S HCT 80-12.5 MG TABS 616799 TELMISARTAN-HCTZ Inactive PRAVASTATIN SODIUM 20 MG TABS 1 tablet by mouth daily at bedtime PRAVASTATIN SODIUM 20 MG TABS 512638 PRAVASTATIN SODIUM Inactive FUROSEMIDE 20 MG TABS 1 pill by mouth daily if needed for edema FUROSEMIDE 20 MG TABS 646786 FUROSEMIDE Inactive METFORMIN HCL 500 MG TABS 1 bid METFORMIN HCL 500 MG TABS 873648 METFORMIN HCL Inactive B-12 1000 MCG CAPS 1 tab daily B-12 1000 MCG CAP S CYANOCOBALAMIN Inactive VITAMIN E 200 UNIT CAPS 1 cap po qd VITAMIN E 2 00 UNIT CAPS 5648637 VITAMIN E Inactive [facility] MELATONIN 5-10 MG CR-TABS Take one by mouth daily at bedtime [facility] MELATONIN 5-10 MG CR-TABS MELATONIN-PYRIDOXI NE Inactive LORTAB 7.5-500 MG TABS take one po Q6 hours LORTAB 7.5-500 MG TABS HYDROCODONE-ACETAMINOPHEN Inactive AZITHROMYCIN 250 MG ORAL TABS Take 2 tabs po today then 1 ta b po daily AZITHROMYCIN 250 MG ORAL TABS 6330012 AZITHROMYCI N Inactive SYMBICORT 160-4.5 MCG/ACT AERO 2 puffs BID SYMBICORT 160- 4.5 MCG/ACT AERO BUDESONIDE-FORMOTEROL FUMARATE Inactive ALBUTEROL SULFATE 0.083 % NEBU SOLN one vial per nebul izer every 4-6 hours as needed ALBUTEROL SULFATE 0.083 % NEBU SOLN 07351 8 ALBUTEROL SULFATE Inactive NEBULIZER MISC use as directed NEBULIZER MISC NEBULIZERS Inactive TESSALON PERLES 100 MG CAP 1 tablet by mouth 3 times daily 07/07 TESSALON PERLES 100 MG CAP 519700 BENZONATATE Inact jairo CYCLOBENZAPRINE HCL 10 MG TABS Take 1 tab TID PRN for muscle pain CYCLOBENZAPRINE HCL 10 MG TABS 991732 CYCLOBENZAPRINE HCL Inactive AUGMENTIN 875-125 MG TAB 1 po BID x 10 days AUGMENTIN 875- 125 MG TAB 701874 AMOXICILLIN-POT CLAVULANATE Inactive BACTROBAN 2 % CREAM Apply to affected area BID for up to 10 days BACTROBAN 2 % CREAM 771529 MUPIROCIN CALCIUM Inactive AMOXICILLIN 500 MG CAPS 2 po BID x 10 days AMOXICILLIN 500 MG CAPS 610210 AMOXICILLIN Inactive AZITHROMYCIN 250 MG TABS take 2 po today then take 1 po days 2-5 AZITHROMYCIN 250 MG TABS 6890899 AZITHROMYCIN Inactiv e LEVAQUIN 500 MG TABS 1 pill by mouth daily LEVAQUIN 500 MG TABS 909171 LEVOFLOXACIN Inactive AUGMENTIN 875-125 MG TABS 1 pill by mouth twice daily AUGMENTIN 875-125 MG TABS 497758 AMOXICILLIN-POT CLAVULANATE Inacti ve AUGMENTIN 875-125 MG TAB 1 po BID x 10 days AUGMENTIN 875- 125 MG TAB 162166 AMOXICILLIN-POT CLAVULANATE Inactive PREDNISONE 20 MG TAB take 3 tabs daily for 3 days , 2 tabs daily for 3 days, 1 tab daily for 3 days, 1/2 tab daily for 3 days PREDNISONE 20 MG TAB 372522 PREDNISONE Inactive CIPRO 500 MG TAB 1 tablet by mouth twice daily CIPRO 500 MG TAB 222170 CIPROFLOXACIN HCL Inactive Vital Signs Date Name [...] 5.8 % 4.3-6.0 cholesterol, serum 200 mg/dL 272-391 0911/07/22 triglyceride, serum, fasting 56 mg/dL 30-200 HDL cholesterol, serum 80 mg/dL 32-96 LDL cholesterol, serum 109 mg/dL 0-130 albumin/creatinine ratio, urine < 30 mg/g mg/g{creat} 0-2 9 TSH 1.16 m[iU]/mL 0.36-3.74 sodium, serum 142 mmol/L 497-684 6926/07/22 carbon dioxide, venous blood 33.1 mmol/L 21.0-32 [...] 0-19 Encounters Code Encounter Date Provider Facility CPT-34228 Level 3 Est. Patient 11:27:00 RESOURCE TECHNICIAN Ike Deluna MD [facility] CPT-72153 Level 3 Est. Patient 08:50:57 RESOURCE TECHNICIAN Dangelo BARAJAS [facility] CPT-64938 Level 3 Est. Patient 10:04:13 CDT Bertrand marquez [facility] CPT-30567 Level 4 Est. Patient 16:02:10 RESOURCE TECHNICIAN Dangelo BARAJAS [facility] CPT-10432 Level 3 Est. Patient 13:04:54 RESOURCE TECHNICIAN Dangelo BARAJAS [facility]-87869 Level 3 Est. Patient 12:56:37 CDT Bertrand marquez [facility] CPT-08206 Level 3 Est. Patient 19:12:03 CDT Yoli tolbert MD [facility]-58644 Level 3 Est. Patient 14:36:01 CDT Yoli tolbert MD [facility]-78091 Level 2 Est. Patient 08:00:22 CDT Jcarlos dc MD [facility]-24617 Level 3 Est. Patient 19:06:55 CDT Bertrand marquez [facility] CPT-60941 Level 3 Est. Patient 10:08:23 RESOURCE TECHNICIAN Bertrand marquez [facility] CPT-21418 Level 3 Est. Patient 16:37:54 RESOURCE TECHNICIAN Bertrand marquez [facility] CPT-75940 Level 3 Est. Patient 11:31:59 RESOURCE TECHNICIAN Bertrand marquez [facility] CPT-69313 Level 3 Est. Patient 10:20:08 CDT Adolfo villasenor [facility] CPT-10414 Level 3 Est. Patient 13:45:20 CDT Sanket buckley [facility] CPT-10345 Level 3 Est. Patient 12:51:06 CDT Adolfo villasenor [facility] CPT-95855 Level 3 Est. Patient 11:22:51 RESOURCE TECHNICIAN Yoli tolbert MD PhD [facility] CPT-31771 Level 3 Est. Patient 13:33:19 CDT Bertrand marquez DO [facility] Procedures Code Procedure Name Date Entry Date Standard Desc ription CPT-45005 Wound Culture - LAB USE ONLY 15:45:25 CDT 2 CPT-53018 Venipuncture Draw Fee 10:23:01 CDT CPT-J0696 Rocephin 1000 mg (Ceftriaxone) 16:20:30 RESOURCE TECHNICIAN CPT-67119 Abx/Therapy Injection 16:20:29 RESOURCE TECHNICIAN CPT-J0696 Rocephin 1gm Inj Solr 15:51:59 RESOURCE TECHNICIAN CPT-57512 Chest 2V Frontal and Lat 15:20:28 RESOURCE TECHNICIAN 07/22 CPT-87780 Breathing Tx 14:51:55 RESOURCE TECHNICIAN CPT-57677 Breathing Tx 09:57:16 RESOURCE TECHNICIAN CPT-46327 Knee comp 4/> V 11:58:06 RESOURCE TECHNICIAN
--- OUTSIDE RECORDS SUMMARY | 2019-11-13 10:21 | XMS REPORT | Clinical Summary ---
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 [...] NDC Status Provider Patient Instruction VITAMIN D3 82202 UNIT CAPS 1 pill Week x 4 months for vitamin D deficiency/osteoporosis CHOLECALCIFEROL 17588075514 Active Darlyn Monzon Active BENZONATATE 200 MG ORAL CAPS 1 three times a day as needed for c ough BENZONATATE 38653996224 Active Ike Deluna MD Acti ve ZITHROMAX Z-MARTIN 250 MG TABS 2 today and then 1 daily for 4 days 201 12/01/06 AZITHROMYCIN 93025317317 Active Ike Deluna MD Active ADDERALL 10 MG ORAL TABS 1 tab twice daily AMPHETAMINE-DEXTROAMPHETAMINE 34936778496 Active Ike Deluna MD Active BACTROBAN 2 % CREAM Apply to affected area BID for up to 10 days MUPIROCIN CALCIUM 38544760863 No Longer Active Ike Deluna MD Active CIPRO 500 MG TAB 1 tablet by mouth twice daily CIPROFLOXACIN HCL 29221575746 No Longer Active Adriana Bender LPN Active AUGMENTIN 875-125 MG TAB 1 po BID x 10 days AMOXICILLIN- POT CLAVULANATE 64869896102 No Longer Active Adriana Bender LPN Active MODAFINIL 200 MG ORAL TABS Take 1/2 tab po in the am and 1/2 tab po at noon MODAFINIL 68320378913 Active Darlyn Monzon A ctive CYCLOBENZAPRINE HCL 10 MG TABS Take 1 tab TID PRN for muscle pain CYCLOBENZAPRINE HCL 16789219492 No Longer Active Bertrand Patel DO Ac tive TESSALON PERLES 100 MG CAP 1 tablet by mouth 3 times daily 07/07 BENZONATATE 15735134731 No Longer Active Bertrand Patel DO Ac tive NEBULIZER MISC use as directed NEBULIZERS 732441 73650 No Longer Active Bertrand Patel DO Active ALBUTEROL SULFATE 0.083 % NEBU SOLKelvin one vial per nebul izer every 4-6 hours as needed ALBUTEROL SULFATE 53119451290 No Longer Active Bertrand Patel DO Active SYMBICORT 160-4.5 MCG/ACT AERO 2 puffs BID BUDESONIDE- FORMOTEROL FUMARATE 39408352435 No Longer Active Bertrand Patel DO Ac tive PREDNISONE 20 MG TAB take 3 tabs daily for 3 days , 2 tabs daily for 3 days, 1 tab daily for 3 days, 1/2 tab daily for 3 days P REDNISONE 65652904710 No Longer Active Silvia Arnold APRN Active AZITHROMYCIN 250 MG ORAL TABS Take 2 tabs po today then 1 ta b po daily AZITHROMYCIN 59105450967 No Longer Active Silvia Jorge leslye TOVARN Active AUGMENTIN 875-125 MG TAB 1 po BID x 10 days AMOXICILLIN- POT CLAVULANATE 86490796391 No Longer Active Adriana Bender LPN Active CHEWABLE CALCIUM 500-200-40 MG-UNT-MCG ORAL CHEW 1 chew tab bid 201 11/03/03 CALCIUM-VITAMIN D-VITAMIN K 65467089663 Active Silvia Arnold APRN Active EQ COMPLETE MULTIVIT ADULT 50+ ORAL TABS 1 tab po bid MULTIPLE VITAMINS-MINERALS 21065379225 Active Silvia Arnold APRN Act jairo HYDROCODONE-ACETAMINOPHEN 7.5-325 MG TABS TAKE ONE TAB EVERY 6 HOURS BY MOUTH NEEDED FOR PAIN HYDROCODONE-ACETAMINOPHEN 07481982170 Acti raheel Mcmullen Active LORTAB 7.5-500 MG TABS take one po Q6 hours HYDROCODONE-ACETAMINOPHEN No Longer Active Nirmal Robbins RN Active [facility] MELATONIN 5-10 MG CR-TABS Take one by mouth daily at bedtime MELATONIN-PYRIDOXINE 89879748066 No Longer Active Bertrand Patel DO Active VITAMIN E 200 UNIT CAPS 1 cap po qd VITAMIN E 316 56725333 No Longer Active Bertrand Patel DO Active B-12 1000 MCG CAPS 1 tab daily CYANOCOBALAMIN 31 545429532 No Longer Active Bertrand Patel DO Active METFORMIN HCL 500 MG TABS 1 bid METFORMIN HCL 60310739060 No Longer Active Bertrand Patel DO Active FUROSEMIDE 20 MG TABS 1 pill by mouth daily if needed for edema FUROSEMIDE 46183933823 No Longer Active Bertrand Patel DO Act jairo PRAVASTATIN SODIUM 20 MG TABS 1 tablet by mouth daily at bedtime PRAVASTATIN SODIUM 98631779521 No Longer Active Bertrand Patel DO Active AUGMENTIN 875-125 MG TABS 1 pill by mouth twice daily AMOXICILLIN-POT CLAVULANATE 45718096061 No Longer Active Yoli Mercado MD PhD Active LEVAQUIN 500 MG TABS 1 pill by mouth daily LEVO FLOXACIN 68742428226 No Longer Active Yoli Mercado MD PhD Active AMLODIPINE BESYLATE 5 MG TABS 1 tablet by mouth daily for bl ood pressure AMLODIPINE BESYLATE 78784879336 Active Darlyn Monzon Active MICARDIS 80 MG TABS 1 tablet daily for blood pressure TELMISARTAN 61599813135 Active Darlyn Monzon Active MICARDIS HCT 80-12.5 MG TABS 1 qd TELMISARTA N-HCTZ 02926538296 No Longer Active Bertrand Patel DO Active CINNAMON ALPHA LIPOIC AC CMPLX CAPS by mouth twice a d ay in AM by mouth twice a day in PM ALPHA LIPOIC QAML-LH-[id number] CAPS 963315 84862 No Longer Active Bertrand Patel DO Active AZITHROMYCIN 500 MG SOLR 1 po q day AZITHROMYCI N 87039499847 No Longer Active Bertrand Patel DO Active CYMBALTA 30 MG CPEP 1 cap by mouth daily DULOXE CATHI HCL 30822433735 No Longer Active Bertrand Patel DO Active CYMBALTA 60 MG CPEP 1 cap by mouth daily DULOXE CATHI HCL 51193959280 Active Keysha Jones MA Active WELLBUTRIN 75 MG TABS 2 times daily BUPROPION H CL 88473330466 No Longer Active Bertrand W Jorge DO Active PROAIR HFA 108 (90 BASE) MCG/ACT AERS take one to two puffs po Q4-6 hour prn cough and shortness of breath ALBUTEROL SULFATE 3629547481 2 Active Silvia Arnold RAIL OPERATIONS CONTROLLER Active AZITHROMYCIN 250 MG TABS take 2 po today then take 1 po days 2-5 AZITHROMYCIN 79490517803 No Longer Active Adolfo OSORIO Active PERMETHRIN 5 % CREA apply neck to toes tonight a nd then rinse off in morning. repeat at 7 days PERMETHRIN 65034184104 No Longer Active Adolfo OSORIO Active AMOXICILLIN 500 MG CAPS 2 po BID x 10 days AMOX ICILLIN 41856241082 No Longer Active Yoli Mercado MD PhD Active ALPRAZOLAM 0.5 MG TAB 1 tab by mouth tid ALPRAZOL AM 53778041000 Active Nitza Mullins RPT,RMA Active INSUPEN ULTRAFIN 31G X 6 MM MISC USE DIRECTED 03/04 INSULIN PEN NEEDLE 10218879237 No Longer Active Bertrand Patel DO Active TRANSDERM-SCOP 1.5 MG PT72 1 patch applied behind ear q 3 day 20 04/13/28 SCOPOLAMINE BASE 52987411860 No Longer Active Bertrand Patel DO Active MACRODANTIN 100 MG CAPS one p.o. b.i.d. x2 weeks 03/04 NITROFURANTOIN MACROCRYSTAL 01597736308 No Longer Active Bertrand Patel DO Active CINNAMON ALPHA LIPOIC AC CMPLX CAPS by mouth twice a d ay in AM by mouth twice a day in PM CINNAMON ALPHA LIPOIC AC CMPLX CAPS ALPHA LIPOIC HHTA-CY-USFCIVEE CAPS Inactive ALBUTEROL SULFATE 0.083 % NEBU SOLN one vial per nebul izer every 4-6 hours as needed ALBUTEROL SULFATE 0.083 % NEBU SOLN 73607 8 ALBUTEROL SULFATE Inactive AMOXICILLIN 500 MG CAPS 2 po BID x 10 days AMOXICILLIN 500 MG CAPS 618871 AMOXICILLIN Inactive CIPRO 500 MG TAB 1 tablet by mouth twice daily CIPRO 500 MG TAB 977375 CIPROFLOXACIN HCL Inactive CYCLOBENZAPRINE HCL 10 MG TABS Take 1 tab TID PRN for muscle pain CYCLOBENZAPRINE HCL 10 MG TABS 939142 CYCLOBENZAPRINE HCL Inactive FUROSEMIDE 20 MG TABS 1 pill by mouth daily if needed for edema FUROSEMIDE 20 MG TABS 615947 FUROSEMIDE Inactive MACRODANTIN 100 MG CAPS one p.o. b.i.d. x2 weeks 03/04 MACRODANTIN 100 MG CAPS 8924666 NITROFURANTOIN MACROCRYSTAL Inactive PREDNISONE 20 MG TAB take 3 tabs daily for 3 days , 2 tabs daily for 3 days, 1 tab daily for 3 days, 1/2 tab daily for 3 days PREDNISONE 20 MG TAB 014934 PREDNISONE Inactive VITAMIN E 200 UNIT CAPS 1 cap po qd VITAMIN E 2 00 UNIT CAPS 0249883 VITAMIN E Inactive WELLBUTRIN 75 MG TABS 2 times daily WELLBUTRIN 75 MG TABS BUPROPION HCL Inactive METFORMIN HCL 500 MG TABS 1 bid METFORMIN HCL 500 MG TABS 328789 METFORMIN HCL Inactive PERMETHRIN 5 % CREA apply neck to toes tonight a nd then rinse off in morning. repeat at 7 days PERMETHRIN 5 % CREA 303323 PERMETHRIN Inactive PRAVASTATIN SODIUM 20 MG TABS 1 tablet by mouth daily at bedtime PRAVASTATIN SODIUM 20 MG TABS 693442 PRAVASTATIN SODIUM Inactive TESSALON PERLES 100 MG CAP 1 tablet by mouth 3 times daily 07/07 TESSALON PERLES 100 MG CAP 844382 BENZONATATE Inact jairo LORTAB 7.5-500 MG TABS take one po Q6 hours LORTAB 7.5-500 MG TABS HYDROCODONE-ACETAMINOPHEN Inactive AUGMENTIN 875-125 MG TAB 1 po BID x 10 days AUGMENTIN 875- 125 MG TAB 654263 AMOXICILLIN-POT CLAVULANATE Inactive AUGMENTIN 875-125 MG TABS 1 pill by mouth twice daily AUGMENTIN 875-125 MG TABS 316918 AMOXICILLIN-POT CLAVULANATE Inacti ve AUGMENTIN 875-125 MG TAB 1 po BID x 10 days AUGMENTIN 875- 125 MG TAB 568145 AMOXICILLIN-POT CLAVULANATE Inactive NEBULIZER MISC use as directed NEBULIZER MISC NEBULIZERS Inactive LEVAQUIN 500 MG TABS 1 pill by mouth daily LEVAQUIN 500 MG TABS 565835 LEVOFLOXACIN Inactive AZITHROMYCIN 250 MG TABS take 2 po today then take 1 po days 2-5 AZITHROMYCIN 250 MG TABS 7106488 AZITHROMYCIN Inactiv e AZITHROMYCIN 250 MG ORAL TABS Take 2 tabs po today then 1 ta b po daily AZITHROMYCIN 250 MG ORAL TABS 8403652 AZITHROMYCI N Inactive AZITHROMYCIN 500 MG SOLR 1 po q day ALTA THROMYCIN 500 MG SOLR 38950467348 AZITHROMYCIN Inactive BACTROBAN 2 % CREAM Apply to affected area BID for up to 10 days BACTROBAN 2 % CREAM 136263 MUPIROCIN CALCIUM Inactive MICARDIS HCT 80-12.5 MG TABS 1 qd MICARDI S HCT 80-12.5 MG TABS 638948 TELMISARTAN-HCTZ Inactive CYMBALTA 30 MG CPEP 1 cap by mouth daily CYMBALTA 30 MG CPEP 610349 DULOXETINE HCL Inactive SYMBICORT 160-4.5 MCG/ACT AERO [...] 5.8 % 4.3-6.0 cholesterol, serum 200 mg/dL 589-771 9775/07/22 triglyceride, serum, fasting 56 mg/dL 30-200 HDL cholesterol, serum 80 mg/dL 32-96 LDL cholesterol, serum 109 mg/dL 0-130 albumin/creatinine ratio, urine < 30 mg/g mg/g{creat} 0-2 9 TSH 1.16 m[iU]/mL 0.36-3.74 sodium, serum 142 mmol/L 042-253 8809/07/22 carbon dioxide, venous blood 33.1 mmol/L 21.0-32 [...] 0-19 Encounters Code Encounter Date Provider Facility CPT-23579 Level 4 Est. Patient 12:31:54 CDT Bertrand marquez [facility] CPT-05776 Level 3 Est. Patient 11:27:00 PROGRESSIVE DIE MAKER Ike Deluna MD [facility] CPT-63697 Level 3 Est. Patient 08:50:57 PROGRESSIVE DIE MAKER Dangelo RAIL OPERATIONS CONTROLLER [facility] CPT-97610 Level 3 Est. Patient 10:04:13 CDT Bertrand marquez [facility] CPT-10301 Level 4 Est. Patient 16:02:10 PROGRESSIVE DIE MAKER Dangelo BARAJAS [facility] CPT-64524 Level 3 Est. Patient 13:04:54 PROGRESSIVE DIE MAKER Dangelo BARAJAS [facility] CPT-61271 Level 3 Est. Patient 12:56:37 CDT Bertrand marquez [facility] CPT-07044 Level 3 Est. Patient 19:12:03 CDT Yoli tolbert MD [facility]-27052 Level 3 Est. Patient 14:36:01 CDT Yoli tolbert MD [facility] CPT-04158 Level 2 Est. Patient 08:00:22 CDT Jcarlos dc MD [facility]-46853 Level 3 Est. Patient 19:06:55 CDT Bertrand marquez [facility] CPT-84506 Level 3 Est. Patient 10:08:23 PROGRESSIVE DIE MAKER Bertrand marquez [facility] CPT-73426 Level 3 Est. Patient 16:37:54 PROGRESSIVE DIE MAKER Bertrand marquez [facility] CPT-57906 Level 3 Est. Patient 11:31:59 PROGRESSIVE DIE MAKER Bertrand marquez [facility] CPT-76964 Level 3 Est. Patient 10:20:08 CDT Adolfo villasenor [facility] CPT-01066 Level 3 Est. Patient 13:45:20 CDT Sanket Josekelvin buckley [facility] CPT-20834 Level 3 Est. Patient 12:51:06 CDT Adolfo villasenor [facility] CPT-21410 Level 3 Est. Patient 11:22:51 PROGRESSIVE DIE MAKER Yoli tolbert MD [facility] CPT-04293 Level 3 Est. Patient 13:33:19 CDT Bertrand marquez [facility] Procedures Code Procedure Name Date Entry Date Standard Desc ription CPT-13757 Wound Culture - LAB USE ONLY 15:45:25 CDT 2 CPT-12534 Venipuncture Draw Fee 10:23:01 CDT CPT-J0696 Rocephin 1000 mg (Ceftriaxone) 16:20:30 PROGRESSIVE DIE MAKER CPT-95433 Abx/Therapy Injection 16:20:29 PROGRESSIVE DIE MAKER CPT-J0696 Rocephin 1gm Inj Solr 15:51:59 PROGRESSIVE DIE MAKER CPT-51178 Chest 2V Frontal and Lat 15:20:28 PROGRESSIVE DIE MAKER 07/22 CPT-58108 Breathing Tx 14:51:55 PROGRESSIVE DIE MAKER CPT-28699 Breathing Tx 09:57:16 PROGRESSIVE DIE MAKER CPT-20866 Knee comp 4/> V 11:58:06 PROGRESSIVE DIE MAKER
--- OUTSIDE RECORDS SUMMARY | 2019-11-13 10:21 | XMS REPORT | Clinical Summary ---
Author Author Admin, Enrique Adamson Organization [employer] Address Unknown Phone Unavailable Allergies, Adverse Reactions, [...] with bronchospasm 466.0 Resolved 2 Nitza Mullins Alxeaibe Acute bronchitis Narcolepsy 347.00 Active Bertrand Patel [...] EDEMA LEG ICD-782.3 Inactive Adele Feldman MANAGER CASH 201 01/01/02 SHORTNESS OF BREATH ICD-786.05 Inactive Yoli Mercado MD PhD RIB PAIN, RIGHT SIDED ICD-786.50 Inactive Yoli Mercado MD PhD KNEE PAIN, RIGHT ICD-719.46 Inactive Adele chiu MANAGER CASH Knee pain, left ICD-719.46 Inactive Adele damico MANAGER CASH Pharyngitis-Acute ICD-462 Inactive Bertrand Redmond DO Polyuria ICD-788.42 Inactive Yoli Mercado MD P hD Cellulitis, leg, right ICD-682.6 Inactive Yuki Deluna MD Foreign body, ear ICD-931 Inactive Yoli salazar MD PhD Fatigue ICD-780.79 Inactive Ike Deluna MD 201 12/01/06 Headache ICD-784.0 Inactive Adele Gaston ARTHUR 2017 Cough ICD-786.2 Inactive Adele Feldman MANAGER CASH 06/04 SINUSITIS, ACUTE ICD-461.9 Inactive Ike lange MD Fatigue ICD-780.79 Inactive Adele Feldman MANAGER CASH 2017 Bronchitis acute with bronchospasm ICD-466.0 I nactive Adele Feldman MANAGER CASH Animal bite ICD-919.8 Inactive Adele Feldman LP N Mycoplasma infection ICD-041.81 Inactive Anit a Feldman MANAGER CASH Amenorrhea, secondary ICD-626.0 Inactive Ani ta Feldman MANAGER CASH Medication List Medication Instructions Start Date Stop Date Generic Name NDC Status Provider Patient Instruction LEVAQUIN 500 MG ORAL TABLET 1 tablet by mouth daily LEVOFLOXACIN 54163021035 Active Bertrand Patel DO Active ADDERALL 10 MG ORAL TABLET 1 tab twice daily 2 AMPHETAMINE-DEXTROAMPHETAMINE 59074816636 No Longer Active Nitza Phi llips Scribe Active ZITHROMAX Z-MARTIN 250 MG ORAL TABLET 2 today and then 1 daily for 4 days AZITHROMYCIN 96549860615 No Longer Active Nitza Osman lips Scribe Active BENZONATATE 200 MG ORAL CAPSULE 1 three times a day as neede d for cough BENZONATATE 63024577621 No Longer Active Nitza Brewer lips Scribe Active VITAMIN D3 02134 UNIT ORAL CAPSULE 1 pill Week x 4 mo nt for vitamin D deficiency/osteoporosis CHOLECALCIFEROL 72680776061 N o Longer Active Layla Mcmullen Active BACTROBAN 2 % EXTERNAL CREAM Apply to affected area BID for up to 10 days MUPIROCIN CALCIUM 15494564270 No Longer Active Ike Deluna MD Active CIPRO 500 MG ORAL TABLET 1 tablet by mouth twice daily CIPROFLOXACIN HCL 67696681720 No Longer Active Adriana Bender LPN Active AUGMENTIN 875-125 MG ORAL TABLET 1 po BID x 10 days 18/04/06 AMOXICILLIN-POT CLAVULANATE 72220409837 No Longer Active Adriana Bender LPN Active MODAFINIL 200 MG ORAL TABLET Take 1/2 tab po in the am and 1 /2 tab po at noon MODAFINIL 06649556224 Active Bertrand Patel DO Ac tive CYCLOBENZAPRINE HCL 10 MG ORAL TABLET Take 1 tab TID PRN for mus triston pain CYCLOBENZAPRINE HCL 55245219893 No Longer Active Bertrand Patel DO Active TESSALON PERLES 100 MG ORAL CAPSULE 1 tablet by mouth 3 times da juan pablo BENZONATATE 72053194404 No Longer Active Bertrand Patel DO Ac tive NEBULIZER use as directed NEBULIZERS 09172741020 No Longer Active Bertrand Patel DO Active ALBUTEROL SULFATE (2.5 MG/3ML) 0.083% INHALATION NEBUL IZATION SOLUTION one vial per nebulizer every 4-6 hours as needed ALBUTERO L SULFATE 79821600311 No Longer Active Bertrand Patel DO Active SYMBICORT 160-4.5 MCG/ACT INHALATION AEROSOL 2 puffs BID 9 BUDESONIDE-FORMOTEROL FUMARATE 67998773230 No Longer Active Bertrand Patel DO Active PREDNISONE 20 MG ORAL TABLET take 3 tabs daily for 3 d ays, 2 tabs daily for 3 days, 1 tab daily for 3 days, 1/2 tab daily for 3 days 08/02 PREDNISONE 36541575991 No Longer Active Silvia Arell CLOTHING SUPERVISOR Active AZITHROMYCIN 250 MG ORAL TABLET Take 2 tabs po today then 1 tab po daily AZITHROMYCIN 62444950339 No Longer Active Silvia Arell CLOTHING SUPERVISOR Active AUGMENTIN 875-125 MG ORAL TABLET 1 po BID x 10 days 19/07/13 AMOXICILLIN-POT CLAVULANATE 14514717657 No Longer Active Adriana Bender LPN Active CHEWABLE CALCIUM 500-200-40 MG-UNT-MCG ORAL TABLET CHEWABLE 1 chew tab bid CALCIUM-VITAMIN D-VITAMIN K 30352133449 Active Silvia Are ll CLOTHING SUPERVISOR Active EQ COMPLETE MULTIVIT ADULT 50+ ORAL TABLET 1 tab po bid MULTIPLE VITAMINS-MINERALS 60656781565 Active Silvia Arell CLOTHING SUPERVISOR Active HYDROCODONE-ACETAMINOPHEN 7.5-325 MG ORAL TABLET TAKE ONE TAB EVERY 6 HOURS BY MOUTH NEEDED FOR PAIN HYDROCODONE-ACETAMINOPHEN 004 69506562 Active Bertrand Patel DO Active LORTAB 7.5-500 MG ORAL TABLET take one po Q6 hours 201 09/12/01 HYDROCODONE-ACETAMINOPHEN 01159392198 No Longer Active Nirmal Robbins RN Active [facility] MELATONIN 5-10 MG ORAL TABLET EXTENDED RELEASE Jair e one by mouth daily at bedtime MELATONIN-PYRIDOXINE 41936313288 No Longer Acti ve Bertrand Patel DO Active VITAMIN E 200 UNIT ORAL CAPSULE 1 cap po qd VITAM IN E 35036310018 No Longer Active Bertrand Patel DO Active B-12 1000 MCG ORAL CAPSULE 1 tab daily CYANOCOB ALAMIN 24669334115 No Longer Active Bertrand Patel DO Active METFORMIN HCL 500 MG ORAL TABLET 1 bid METFOR MIN HCL 14386606239 No Longer Active Bertrand Patel DO Active FUROSEMIDE 20 MG ORAL TABLET 1 pill by mouth daily if needed for edema FUROSEMIDE 44100862577 No Longer Active Bertrand Patel DO Active PRAVASTATIN SODIUM 20 MG ORAL TABLET 1 tablet by mouth daily at bedtime PRAVASTATIN SODIUM 92937605678 No Longer Active Bertrand Patel DO Active AUGMENTIN 875-125 MG ORAL TABLET 1 pill by mouth twice daily 201 09/10/00 AMOXICILLIN-POT CLAVULANATE 13924040973 No Longer Active Yoli Mercado MD PhD Active LEVAQUIN 500 MG ORAL TABLET 1 pill by mouth daily 2013 LEVOFLOXACIN 06725650173 No Longer Active Yoli Mercado MD PhD Acti ve AMLODIPINE BESYLATE 5 MG ORAL TABLET 1 tablet by mouth daily for blood pressure AMLODIPINE BESYLATE 15710359511 Active Bertrand Patel DO Active MICARDIS 80 MG ORAL TABLET 1 tablet daily for blood pressure 07/30 TELMISARTAN 92382597625 Active Bertrand Patel DO Active MICARDIS HCT 80-12.5 MG ORAL TABLET 1 qd TELMISARTAN-HCTZ 42864571063 No Longer Active Bertrand Patel DO Active CINNAMON ALPHA LIPOIC AC CMPLX CAPSULE by mouth twice a day in AM by mouth twice a day in PM ALPHA LIPOIC KCNI-RO-WDMUNIOU CA PS 40572178759 No Longer Active Bertrand Patel DO Active AZITHROMYCIN 500 MG INTRAVENOUS SOLUTION RECONSTITUTED 1 po q da y AZITHROMYCIN 20601570640 No Longer Active Bertrand Patel DO A ctive CYMBALTA 30 MG ORAL CAPSULE DELAYED RELEASE PARTICLES 1 cap by mouth daily DULOXETINE HCL 67383469436 No Longer Active Bertrand marquez DO Active CYMBALTA 60 MG ORAL CAPSULE DELAYED RELEASE PARTICLES 1 cap by mouth daily DULOXETINE HCL 42589372847 Active Bertrand Patel DO Active WELLBUTRIN 75 MG ORAL TABLET 2 times daily BUPR OPION HCL 15085164176 No Longer Active Bertrand Patel DO Active PROAIR HFA 108 (90 Base) MCG/ACT INHALATION AEROSOL SO LUTION take one to two puffs po Q4-6 hour prn cough and shortness of breath ALBUTEROL SULFATE 72616798541 Active Silvia Vazquez APRN Active AZITHROMYCIN 250 MG ORAL TABLET take 2 po today then take 1 po days 2-5 AZITHROMYCIN 65205773648 No Longer Active Adolfo OSORIO Active PERMETHRIN 5 % EXTERNAL CREAM apply neck to toes tonig ht and then rinse off in morning. repeat at 7 days PERMETHRIN 76462826103 No Longer Active Adolfo OSORIO Active AMOXICILLIN 500 MG ORAL CAPSULE 2 po BID x 10 days 201 07/15/00 AMOXICILLIN 66747610760 No Longer Active Yoli Mercado MD PhD Acti ve ALPRAZOLAM 0.5 MG ORAL TABLET 1 tab by mouth tid ALPRAZOLAM 73582549002 Active Bertrand Patel DO Active INSUPEN ULTRAFIN 31G X 6 MM USE DIRECTED INSULIN PEN NEEDLE 74443794087 No Longer Active Bertrand Patel DO Active TRANSDERM-SCOP (1.5 MG) 1 MG/3DAYS TRANSDERMAL PATCH 7 2 HOUR 1 patch applied behind ear q 3 day SCOPOLAMINE BASE 51606469690 No Lo nger Active Bertrand Patel DO Active MACRODANTIN 100 MG ORAL CAPSULE one p.o. b.i.d. x2 weeks NITROFURANTOIN MACROCRYSTAL 40934501048 No Longer Active Bertrand Patel DO Active MACRODANTIN 100 MG ORAL CAPSULE one p.o. b.i.d. x2 weeks MACRODANTIN 100 MG ORAL CAPSULE 1023482 NITROFURANTOIN MACROCRYSTAL Inactive TRANSDERM-SCOP (1.5 MG) 1 [...] days PERMETHRIN 5 % EXTER NAL CREAM 205626 PERMETHRIN Inactive WELLBUTRIN 75 MG ORAL TABLET 2 times daily WELLBUTRIN 75 MG ORAL TABLET 613642 BUPROPION HCL Inactive CYMBALTA 30 MG ORAL CAPSULE DELAYED RELEASE PARTICLES 1 cap by mouth daily CYMBALTA 30 MG ORAL CAPSULE DELAYED RELE ASE PARTICLES 579571 DULOXETINE HCL Inactive AZITHROMYCIN 500 MG INTRAVENOUS SOLUTION RECONSTITUTED 1 po q da y AZITHROMYCIN 500 MG INTRAVENOUS SOLUTION RECONSTITUTED 50089 129829 AZITHROMYCIN Inactive CINNAMON ALPHA LIPOIC AC CMPLX CAPSULE by mouth twice a day in AM by mouth twice a day in PM CINNAMON ALPHA LIPOIC AC CMPLX CAPSULE ALPHA LIPOIC [id number]-JP-BMLFALCK CAPS Inactive MICARDIS HCT 80-12.5 MG ORAL TABLET 1 qd 07/30 MICARDIS HCT 80-12.5 MG ORAL TABLET 968781 TELMISARTAN-HCTZ Inactive PRAVASTATIN SODIUM 20 MG ORAL TABLET 1 tablet by mouth daily at bedtime PRAVASTATIN SODIUM 20 MG ORAL TABLET 790560 PRAVASTATIN SODIUM Inactive FUROSEMIDE 20 MG ORAL TABLET 1 pill by mouth daily if needed for edema FUROSEMIDE 20 MG ORAL TABLET 657192 FUROSEMIDE Inactive METFORMIN HCL 500 MG ORAL TABLET 1 bid METFORMIN HCL 500 MG ORAL TABLET 095489 METFORMIN HCL Inactive B-12 1000 MCG ORAL CAPSULE 1 tab daily B -12 1000 MCG ORAL CAPSULE CYANOCOBALAMIN Inactive VITAMIN E 200 UNIT ORAL CAPSULE 1 cap po qd 1 VITAMIN E 200 UNIT ORAL CAPSULE 2053437 VITAMIN E Inactive [facility] MELATONIN 5-10 MG [...] po daily AZITHROMYCIN 250 MG ORAL TABLET 644348 AZITHROMY BERNARDO Inactive SYMBICORT 160-4.5 MCG/ACT INHALATION AEROSOL 2 puffs BID 9 SYMBICORT 160-4.5 MCG/ACT INHALATION AEROSOL BUDESONIDE-FORM OTEROL FUMARATE Inactive ALBUTEROL SULFATE (2.5 MG/3ML) 0.083% INHALATION NEBUL IZATION SOLUTION one vial per nebulizer every 4-6 hours as needed ALBUTEROL SULFATE (2.5 MG/3ML) 0.083% INHALATION NEBULIZATION SOLUTION 072424 ALBUTER OL SULFATE Inactive NEBULIZER use as directed NEBULIZER NEBULI ZERS Inactive TESSALON PERLES 100 MG ORAL CAPSULE 1 tablet by mouth 3 times da juan pablo TESSALON PERLES 100 MG ORAL CAPSULE 349522 BENZONATATE Inactive CYCLOBENZAPRINE HCL 10 MG ORAL TABLET Take 1 tab TID PRN for mus triston pain CYCLOBENZAPRINE HCL 10 MG ORAL TABLET 147210 CYCLOBENZA ANUJA HCL Inactive AUGMENTIN 875-125 MG ORAL TABLET 1 po BID x 10 days 20 18/04/06 AUGMENTIN 875-125 MG ORAL TABLET 080648 AMOXICILLIN-POT CLAVULANATE Inactive BACTROBAN 2 % EXTERNAL CREAM Apply to affected area BID for up to 10 days BACTROBAN 2 % EXTERNAL CREAM 694613 MUPIROCIN CA LCIUM Inactive VITAMIN D3 14926 UNIT ORAL CAPSULE 1 pill Week x 4 mo nt for vitamin D deficiency/osteoporosis VITAMIN D3 42732 UNIT ORAL CAPSULE CHOLECALCIFEROL Inactive BENZONATATE 200 MG ORAL CAPSULE 1 three times a day as neede d for cough BENZONATATE 200 MG ORAL CAPSULE 072509 BENZONATA TE Inactive ZITHROMAX Z-MARTIN 250 MG ORAL TABLET 2 today and then 1 daily for 4 days ZITHROMAX Z-MARTIN 250 MG ORAL TABLET 354577 AZITHR OMYCIN Inactive ADDERALL 10 MG ORAL TABLET 1 tab twice daily 2 ADDERALL 10 MG ORAL TABLET 047542 AMPHETAMINE-DEXTROAMPHETAMINE Inactive AMOXICILLIN 500 MG ORAL CAPSULE 2 po BID x 10 days 201 07/15/00 AMOXICILLIN 500 MG ORAL CAPSULE 072054 AMOXICILLIN Inactive AZITHROMYCIN 250 MG ORAL TABLET take 2 po today then take 1 po days 2-5 AZITHROMYCIN 250 MG ORAL TABLET 210356 AZITHROMY BERNARDO Inactive LEVAQUIN 500 MG ORAL TABLET 1 pill by mouth daily 2013 LEVAQUIN 500 MG ORAL TABLET 675561 LEVOFLOXACIN Inactive AUGMENTIN 875-125 MG ORAL TABLET 1 pill by mouth twice daily 201 09/10/00 AUGMENTIN 875-125 MG ORAL TABLET 674764 AMOXICILLIN-POT CLAVULANATE Inactive AUGMENTIN 875-125 MG ORAL TABLET 1 po BID x 10 days 20 19/07/13 AUGMENTIN 875-125 MG ORAL TABLET 802972 AMOXICILLIN-POT CLAVULANATE Inactive PREDNISONE 20 MG ORAL TABLET take 3 tabs daily for 3 d ays, 2 tabs daily for 3 days, 1 tab daily for 3 days, 1/2 tab daily for 3 days 08/02 PREDNISONE 20 MG ORAL TABLET 226605 PREDNISONE Inactive CIPRO 500 MG ORAL TABLET 1 tablet by mouth twice daily CIPRO 500 MG ORAL TABLET 996233 CIPROFLOXACIN HCL Inactive Vital Signs Date Name [...] Lab Report: CBC, Comp. Metabolic Panel, [facility] - Chemistry sodium, serum 143 mmol/L 277-369 9717/01/02 carbon dioxide, venous blood 31.7 mmol/L 21.0-32 [...] 0-19 Encounters Code Encounter Date Provider Facility CPT-02928 Level 3 Est. Patient 11:40:23 CDT Bertrand marquez DO [facility] CPT-78865 Level 4 Est. Patient 15:33:35 PILE DRIVING NOZZLEMAN Bertrand marquez DO [facility] CPT-96779 Level 4 Est. Patient 12:31:54 CDT Bertrand marquez DO [facility] CPT-01089 Level 3 Est. Patient 11:27:00 PILE DRIVING NOZZLEMAN Ike Deluna MD [facility] CPT-61692 Level 3 Est. Patient 08:50:57 PILE DRIVING NOZZLEMAN Silvia gagnon APRN [facility] CPT-95790 Level 3 Est. Patient 10:04:13 CDT Bertrand W L ee [facility]-47934 Level 4 Est. Patient 16:02:10 PILE DRIVING NOZZLEMAN Silvia Are ll [facility] CPT-42183 Level 3 Est. Patient 13:04:54 PILE DRIVING NOZZLEMAN Silvia Are ll [facility]-83314 Level 3 Est. Patient 12:56:37 CDT Bertrand marquez [facility]-26197 Level 3 Est. Patient 19:12:03 CDT Yoli tolbert MD [facility]-20106 Level 3 Est. Patient 14:36:01 CDT Yoli tolbert MD [facility]78167 Level 2 Est. Patient 08:00:22 CDT Jcarlos dc MD [facility]-70378 Level 3 Est. Patient 19:06:55 CDT Bertrand marquez [facility]-80064 Level 3 Est. Patient 10:08:23 PILE DRIVING NOZZLEMAN Bertrand marquez [facility]-60538 Level 3 Est. Patient 16:37:54 PILE DRIVING NOZZLEMAN Bertrand marquez [facility]-13134 Level 3 Est. Patient 11:31:59 PILE DRIVING NOZZLEMAN Bertrand marquez [facility] CPT-64863 Level 3 Est. Patient 10:20:08 CDT Adolfo villasenor [facility]-69839 Level 3 Est. Patient 13:45:20 CDT Sanket buckley [facility]-98878 Level 3 Est. Patient 12:51:06 CDT Adolfo villasenor [facility]-80186 Level 3 Est. Patient 11:22:51 PILE DRIVING NOZZLEMAN Yoli tolbert MD [facility]35942 Level 3 Est. Patient 13:33:19 CDT Bertrand marquez [facility] Procedures Code Procedure Name Date Entry Date Standard Desc ription CPT-15266 Wound Culture - LAB USE ONLY 15:45:25 CDT 2 CPT-67168 Venipuncture Draw Fee 10:23:01 CDT CPT-J0696 Rocephin 1000 mg (Ceftriaxone) 16:20:30 PILE DRIVING NOZZLEMAN CPT-89409 Abx/Therapy Injection 16:20:29 PILE DRIVING NOZZLEMAN CPT-J0696 Rocephin 1gm Inj Solr 15:51:59 PILE DRIVING NOZZLEMAN CPT-89801 Chest 2V Frontal and Lat 15:20:28 PILE DRIVING NOZZLEMAN 07/22 CPT-97378 Breathing Tx 14:51:55 PILE DRIVING NOZZLEMAN CPT-22730 Breathing Tx 09:57:16 PILE DRIVING NOZZLEMAN CPT-57311 Knee comp 4/> V 11:58:06 PILE DRIVING NOZZLEMAN
--- OUTSIDE RECORDS SUMMARY | 2019-11-13 10:21 | XMS REPORT | Clinical Summary ---
Author Author Admin, Enrique Adamson Organization [employer] Address Unknown Phone Unavailable Allergies, Adverse Reactions, [...] Cough SINUSITIS, ACUTE 461.9 Active Silvia PARISI shingle carrier sinusitis, unspecified Fatigue 780.79 Active Silvia Arnold [...] tab daily for 3 days P REDNISONE 15092685267 Active Silvia Arnold APRN Active SYMBICORT 160-4.5 MCG/ACT AERO 2 puffs BID BUDESONIDE-FORMOTEROL FUMARATE 19125954751 Active Silvia Arnold APRN Active ALBUTEROL SULFATE 0.083 % NEBU SOLN one vial per nebul izer every 4-6 hours as needed ALBUTEROL SULFATE 27653518947 Active Silvia Arnold APRN Active NEBULIZER MISC use as directed NEBULIZERS 89915944798 Active Silvia Arnold APRN Active AZITHROMYCIN 250 MG ORAL TABS Take 2 tabs po today then 1 ta b po daily AZITHROMYCIN 42936345477 No Longer Active Silvia gavin APRN Active AUGMENTIN 875-125 MG TAB 1 po BID x 10 days AMOXICILLIN- POT CLAVULANATE 59506084182 No Longer Active Adriana Bender LPN Active TESSALON PERLES 100 MG CAP 1 tablet by mouth 3 times daily BENZONATATE 98790935008 Active Silvia Arnold APRN Active CHEWABLE CALCIUM 500-200-40 MG-UNT-MCG ORAL CHEW 1 chew tab bid 201 11/03/03 CALCIUM-VITAMIN D-VITAMIN K 81763537420 Active Silvia Arnold APRN Active EQ COMPLETE MULTIVIT ADULT 50+ ORAL TABS 1 tab po bid MULTIPLE VITAMINS-MINERALS 72107491019 Active Silvia Arnold APRN Act jairo HYDROCODONE-ACETAMINOPHEN 7.5-325 MG TABS TAKE ONE TAB EVERY 6 HOURS BY MOUTH NEEDED FOR PAIN HYDROCODONE-ACETAMINOPHEN 55108189042 Acti ve Bertrand Patel DO Active LORTAB 7.5-500 MG TABS take one po Q6 hours HYDROCODONE-ACETAMINOPHEN No Longer Active Nirmal Robbins RN Active [facility] MELATONIN 5-10 MG CR-TABS Take one by mouth daily at bedtime MELATONIN-PYRIDOXINE 30611008004 No Longer Active Bertrand Patel DO Active VITAMIN E 200 UNIT CAPS 1 cap po qd VITAMIN E 316 47419268 No Longer Active Bertrand Patel DO Active B-12 1000 MCG CAPS 1 tab daily CYANOCOBALAMIN 31 787176322 No Longer Active Bertrand Patel DO Active METFORMIN HCL 500 MG TABS 1 bid METFORMIN HCL 22802002765 No Longer Active Bertrand Patel DO Active FUROSEMIDE 20 MG TABS 1 pill by mouth daily if needed for edema FUROSEMIDE 28145759580 No Longer Active Bertrand Patel DO Act jairo PRAVASTATIN SODIUM 20 MG TABS 1 tablet by mouth daily at bedtime PRAVASTATIN SODIUM 01711755788 No Longer Active Bertrand Patel DO Active AUGMENTIN 875-125 MG TABS 1 pill by mouth twice daily AMOXICILLIN-POT CLAVULANATE 14344849371 No Longer Active Yoli Mercado MD PhD Active LEVAQUIN 500 MG TABS 1 pill by mouth daily LEVO FLOXACIN 39738145093 No Longer Active Yoli Mercado MD PhD Active CYCLOBENZAPRINE HCL 10 MG TABS Take 1 tab TID PRN for muscle pain CYCLOBENZAPRINE HCL 65375297729 Active Brittni Randall AERONAUTICAL ENGINEERING OFFICER Active AMLODIPINE BESYLATE 5 MG TABS 1 tablet by mouth daily for bl ood pressure AMLODIPINE BESYLATE 86838505145 Active Nitza Dorman PT,RMA Active MICARDIS 80 MG TABS 1 tablet daily for blood pressure TELMISARTAN 63242617189 Active Nitza Mullins RPT,RMA Active MICARDIS HCT 80-12.5 MG TABS 1 qd TELMISARTA N-HCTZ 84536647724 No Longer Active Bertrand Patel DO Active CINNAMON ALPHA LIPOIC AC CMPLX CAPS by mouth twice a d ay in AM by mouth twice a day in PM ALPHA LIPOIC [id number] CAPS 967352 33849 No Longer Active Bertrand Patel DO Active AZITHROMYCIN 500 MG SOLR 1 po q day AZITHROMYCI N 85670856305 No Longer Active Bertrand Patel DO Active CYMBALTA 30 MG CPEP 1 cap by mouth daily DULOXE CATHI HCL 97385930646 No Longer Active Bertrand Patel DO Active CYMBALTA 60 MG CPEP 1 cap by mouth daily DULOXE CATHI HCL 76726039512 Active Nitza Mullins RPT,RMA Active WELLBUTRIN 75 MG TABS 2 times daily BUPROPION H CL 31382460613 No Longer Active Bertrand Patel DO Active PROAIR HFA 108 (90 BASE) MCG/ACT AERS take one to two puffs po Q4-6 hour prn cough and shortness of breath ALBUTEROL SULFATE 0629458082 2 Active Silvia Arnold SERVICE LEARNING COORDINATOR Active AZITHROMYCIN 250 MG TABS take 2 po today then take 1 po days 2-5 AZITHROMYCIN 57695996016 No Longer Active Adolfo OSORIO Active PERMETHRIN 5 % CREA apply neck to toes tonight a nd then rinse off in morning. repeat at 7 days PERMETHRIN 20330609852 No Longer Active Adolfo OSORIO Active AMOXICILLIN 500 MG CAPS 2 po BID x 10 days AMOX ICILLIN 99926791548 No Longer Active Yoli Mercado MD PhD Active ALPRAZOLAM 0.5 MG TAB 1 tab by mouth tid ALPRAZOL AM 55349035959 Active Bertrand Patel DO Active INSUPEN ULTRAFIN 31G X 6 MM MISC USE DIRECTED 03/04 INSULIN PEN NEEDLE 44662405459 No Longer Active Bertrand Paetl DO Active TRANSDERM-SCOP 1.5 MG PT72 1 patch applied behind ear q 3 day 20 04/13/28 SCOPOLAMINE BASE 64350849988 No Longer Active Betrrand Patel DO Active MACRODANTIN 100 MG CAPS one p.o. b.i.d. x2 weeks 03/04 NITROFURANTOIN MACROCRYSTAL 22445283659 No Longer Active Bertrand Patel DO Active MACRODANTIN 100 MG CAPS one p.o. b.i.d. x2 weeks 03/04 MACRODANTIN 100 MG CAPS 2030571 NITROFURANTOIN MACROCRYSTAL Inactive TRANSDERM-SCOP 1.5 MG PT72 [...] at 7 days PERMETHRIN 5 % CREA 629070 PERMETHRIN Inactive WELLBUTRIN 75 MG TABS 2 times daily WELLBUTRIN 75 MG TABS 504027 BUPROPION HCL Inactive CYMBALTA 30 MG CPEP 1 cap by mouth daily CYMBALTA 30 MG CPEP 521511 DULOXETINE HCL Inactive AZITHROMYCIN 500 MG SOLR 1 po q day ALTA THROMYCIN 500 MG SOLR 20933469432 AZITHROMYCIN Inactive CINNAMON ALPHA LIPOIC AC CMPLX CAPS by mouth twice a d ay in AM by mouth twice a day in PM CINNAMON ALPHA LIPOIC AC CMPLX CAPS ALPHA LIPOIC SBIC-OS-ULQRWLLO CAPS Inactive MICARDIS HCT 80-12.5 MG TABS 1 qd MICARDI S HCT 80-12.5 MG TABS 540977 TELMISARTAN-HCTZ Inactive PRAVASTATIN SODIUM 20 MG TABS 1 tablet by mouth daily at bedtime PRAVASTATIN SODIUM 20 MG TABS 747963 PRAVASTATIN SODIUM Inactive FUROSEMIDE 20 MG TABS 1 pill by mouth daily if needed for edema FUROSEMIDE 20 MG TABS 975000 FUROSEMIDE Inactive METFORMIN HCL 500 MG TABS 1 bid METFORMIN HCL 500 MG TABS 481692 METFORMIN HCL Inactive B-12 1000 MCG CAPS 1 tab daily B-12 1000 MCG CAP S CYANOCOBALAMIN Inactive VITAMIN E 200 UNIT CAPS 1 cap po qd VITAMIN E 2 00 UNIT CAPS 9177375 VITAMIN E Inactive [facility] MELATONIN 5-10 MG CR-TABS Take one by mouth daily at bedtime [facility] MELATONIN 5-10 MG CR-TABS MELATONIN-PYRIDOXI NE Inactive LORTAB 7.5-500 MG TABS take one po Q6 hours LORTAB 7.5-500 MG TABS HYDROCODONE-ACETAMINOPHEN Inactive AZITHROMYCIN 250 MG ORAL TABS Take 2 tabs po today then 1 ta b po daily AZITHROMYCIN 250 MG ORAL TABS 6016226 AZITHROMYCI N Inactive AMOXICILLIN 500 MG CAPS 2 po BID x 10 days AMOXICILLIN 500 MG CAPS 489418 AMOXICILLIN Inactive AZITHROMYCIN 250 MG TABS take 2 po today then take 1 po days 2-5 AZITHROMYCIN 250 MG TABS 5285721 AZITHROMYCIN Inactiv e LEVAQUIN 500 MG TABS 1 pill by mouth daily LEVAQUIN 500 MG TABS 484784 LEVOFLOXACIN Inactive AUGMENTIN 875-125 MG TABS 1 pill by mouth twice daily AUGMENTIN 875-125 MG TABS 173016 AMOXICILLIN-POT CLAVULANATE Inacti ve AUGMENTIN 875-125 MG TAB 1 po BID x 10 days AUGMENTIN 875- 125 MG TAB 128819 AMOXICILLIN-POT CLAVULANATE Inactive Vital Signs Date Name [...] Negative;Positive Encounters Code Encounter Date Provider Facility CPT-10964 Level 4 Est. Patient 16:02:10 HEAD WRESTLING COACH Dangelo [facility] [place] CPT-39561 Level 3 Est. Patient 13:04:54 HEAD WRESTLING COACH Dangelo [facility] [place] CPT-53021 Level 3 Est. Patient 12:56:37 CDT Bertrand marquez [facility] CPT-31228 Level 3 Est. Patient 19:12:03 CDT Yoli toblert MD PhD [facility] CPT-23893 Level 3 Est. Patient 14:36:01 CDT Yoli tolbert MD PhD [facility] CPT-56439 Level 2 Est. Patient 08:00:22 CDT Jcarlos dc MD [facility] CPT-91666 Level 3 Est. Patient 19:06:55 CDT Bertrand marquez [facility] CPT-38431 Level 3 Est. Patient 10:08:23 HEAD WRESTLING COACH Bertrand marquez [facility] CPT-58845 Level 3 Est. Patient 16:37:54 HEAD WRESTLING COACH Bertrand marquez [facility] CPT-31562 Level 3 Est. Patient 11:31:59 HEAD WRESTLING COACH Bertrand marquez [facility] CPT-58612 Level 3 Est. Patient 10:20:08 CDT Gennadot villasenor [facility] CPT-50528 Level 3 Est. Patient 13:45:20 CDT Sanket Pham ina [facility] CPT-26010 Level 3 Est. Patient 12:51:06 CDT Adolfo villasenor [facility] CPT-87158 Level 3 Est. Patient 11:22:51 HEAD WRESTLING COACH Yoli tolbert MD PhD [facility] CPT-84119 Level 3 Est. Patient 13:33:19 CDT Bertrand marquez [facility] Procedures Code Procedure Name Date Entry Date Standard Desc ription CPT-J0696 Rocephin 1000 mg (Ceftriaxone) 16:20:30 HEAD WRESTLING COACH CPT-22538 Abx/Therapy Injection 16:20:29 HEAD WRESTLING COACH CPT-J0696 Rocephin 1gm Inj Solr 15:51:59 HEAD WRESTLING COACH CPT-61181 Chest 2V Frontal and Lat 15:20:28 HEAD WRESTLING COACH 07/22 CPT-76431 Breathing Tx 14:51:55 HEAD WRESTLING COACH CPT-69013 Breathing Tx 09:57:16 HEAD WRESTLING COACH CPT-69607 Knee comp 4/> V 11:58:06 HEAD WRESTLING COACH
--- OUTSIDE RECORDS SUMMARY | 2019-11-13 10:22 | XMS REPORT | Clinical Summary ---
Author Author Admin, Enrique Adamson Organization [employer] Address Unknown Phone Unavailable Allergies, Adverse Reactions, [...] NDC Status Provider Patient Instruction VITAMIN D3 09286 UNIT CAPS 1 pill Week x 4 months for vitamin D deficiency/osteoporosis CHOLECALCIFEROL 76700596428 Active Darlyn Monzon Active BENZONATATE 200 MG ORAL CAPS 1 three times a day as needed for c ough BENZONATATE 99076273146 Active Ike Deluna MD Acti ve ZITHROMAX Z-MARTIN 250 MG TABS 2 today and then 1 daily for 4 days 201 12/01/06 AZITHROMYCIN 01687171929 Active Ike Deluna MD Active ADDERALL 10 MG ORAL TABS 1 tab twice daily AMPHETAMINE-DEXTROAMPHETAMINE 40049882784 Active Ike Deluna MD Active BACTROBAN 2 % CREAM Apply to affected area BID for up to 10 days MUPIROCIN CALCIUM 94666755829 No Longer Active Ike Deluna MD Active CIPRO 500 MG TAB 1 tablet by mouth twice daily CIPROFLOXACIN HCL 04708827750 No Longer Active Adriana Bender LPN Active AUGMENTIN 875-125 MG TAB 1 po BID x 10 days AMOXICILLIN- POT CLAVULANATE 89336391352 No Longer Active Adriana Bender LPN Active MODAFINIL 200 MG ORAL TABS Take 1/2 tab po in the am and 1/2 tab po at noon MODAFINIL 09928551970 Active Darlyn Monzon A ctive CYCLOBENZAPRINE HCL 10 MG TABS Take 1 tab TID PRN for muscle pain CYCLOBENZAPRINE HCL 00332810896 No Longer Active Bertrand Patel DO Ac tive TESSALON PERLES 100 MG CAP 1 tablet by mouth 3 times daily 07/07 BENZONATATE 46401664260 No Longer Active Bertrand Patel DO Ac tive NEBULIZER MISC use as directed NEBULIZERS 334008 40907 No Longer Active Bertrand Patel DO Active ALBUTEROL SULFATE 0.083 % NEBU SOLN one vial per nebul izer every 4-6 hours as needed ALBUTEROL SULFATE 47115561838 No Longer Active Bertrand Patel DO Active SYMBICORT 160-4.5 MCG/ACT AERO 2 puffs BID BUDESONIDE- FORMOTEROL FUMARATE 21581045567 No Longer Active Bertrand Patel DO Ac tive PREDNISONE 20 MG TAB take 3 tabs daily for 3 days , 2 tabs daily for 3 days, 1 tab daily for 3 days, 1/2 tab daily for 3 days P REDNISONE 65064141127 No Longer Active Silvia Arnold APRN Active AZITHROMYCIN 250 MG ORAL TABS Take 2 tabs po today then 1 ta b po daily AZITHROMYCIN 69413748495 No Longer Active Silvia Jorge leslye TOVARN Active AUGMENTIN 875-125 MG TAB 1 po BID x 10 days AMOXICILLIN- POT CLAVULANATE 38838137354 No Longer Active Adriana Bender LPN Active CHEWABLE CALCIUM 500-200-40 MG-UNT-MCG ORAL CHEW 1 chew tab bid 201 11/03/03 CALCIUM-VITAMIN D-VITAMIN K 28086388505 Active Silvia Arnold APRN Active EQ COMPLETE MULTIVIT ADULT 50+ ORAL TABS 1 tab po bid MULTIPLE VITAMINS-MINERALS 33145794283 Active Silvia Arnold APRN Act jairo HYDROCODONE-ACETAMINOPHEN 7.5-325 MG TABS TAKE ONE TAB EVERY 6 HOURS BY MOUTH NEEDED FOR PAIN HYDROCODONE-ACETAMINOPHEN 29954158892 Acti ve Bertrand Patel DO Active LORTAB 7.5-500 MG TABS take one po Q6 hours HYDROCODONE-ACETAMINOPHEN No Longer Active Nirmal Robbins RN Active [facility] MELATONIN 5-10 MG CR-TABS Take one by mouth daily at bedtime MELATONIN-PYRIDOXINE 62542857373 No Longer Active Bertrand Patel DO Active VITAMIN E 200 UNIT CAPS 1 cap po qd VITAMIN E 316 02756182 No Longer Active Bertrand Patel DO Active B-12 1000 MCG CAPS 1 tab daily CYANOCOBALAMIN 31 601232729 No Longer Active Bertrand Patel DO Active METFORMIN HCL 500 MG TABS 1 bid METFORMIN HCL 98317060759 No Longer Active Bertrand Patel DO Active FUROSEMIDE 20 MG TABS 1 pill by mouth daily if needed for edema FUROSEMIDE 16653479577 No Longer Active Bertrand Patel DO Act jairo PRAVASTATIN SODIUM 20 MG TABS 1 tablet by mouth daily at bedtime PRAVASTATIN SODIUM 37509503543 No Longer Active Bertrand Patel DO Active AUGMENTIN 875-125 MG TABS 1 pill by mouth twice daily AMOXICILLIN-POT CLAVULANATE 35340954010 No Longer Active Yoli Mercado MD PhD Active LEVAQUIN 500 MG TABS 1 pill by mouth daily LEVO FLOXACIN 98164113926 No Longer Active Yoli Mercado MD PhD Active AMLODIPINE BESYLATE 5 MG TABS 1 tablet by mouth daily for bl ood pressure AMLODIPINE BESYLATE 85745036453 Active Darlyn Monzon Active MICARDIS 80 MG TABS 1 tablet daily for blood pressure TELMISARTAN 92081299019 Active Darlyn Monzon Active MICARDIS HCT 80-12.5 MG TABS 1 qd TELMISARTA N-HCTZ 09423017040 No Longer Active Bertrand Patel DO Active CINNAMON ALPHA LIPOIC AC CMPLX CAPS by mouth twice a d ay in AM by mouth twice a day in PM ALPHA LIPOIC [id number] CAPS 078406 90016 No Longer Active Bertrand Patel DO Active AZITHROMYCIN 500 MG SOLR 1 po q day AZITHROMYCI N 59623465945 No Longer Active Bertrand Patel DO Active CYMBALTA 30 MG CPEP 1 cap by mouth daily DULOXE CATHI HCL 09004325305 No Longer Active Bertrand Patel DO Active CYMBALTA 60 MG CPEP 1 cap by mouth daily DULOXE CATHI HCL 17911009026 Active Darlyn Monzon Active WELLBUTRIN 75 MG TABS 2 times daily BUPROPION H CL 58857377755 No Longer Active Bertrand W Jorge DO Active PROAIR HFA 108 (90 BASE) MCG/ACT AERS take one to two puffs po Q4-6 hour prn cough and shortness of breath ALBUTEROL SULFATE 8232853014 2 Active Silvia Arnold DISABILITY SPECIALIST Active AZITHROMYCIN 250 MG TABS take 2 po today then take 1 po days 2-5 AZITHROMYCIN 79950957818 No Longer Active Adolfo OSORIO Active PERMETHRIN 5 % CREA apply neck to toes tonight a nd then rinse off in morning. repeat at 7 days PERMETHRIN 64692003460 No Longer Active Adolfo OSOROI Active AMOXICILLIN 500 MG CAPS 2 po BID x 10 days AMOX ICILLIN 37085265429 No Longer Active Yoli Mercado MD PhD Active ALPRAZOLAM 0.5 MG TAB 1 tab by mouth tid ALPRAZOL AM 38019197966 Active Nitza Mullins FURNITURE RESTORER Active INSUPEN ULTRAFIN 31G X 6 MM MISC USE DIRECTED 03/04 INSULIN PEN NEEDLE 14886257767 No Longer Active Bertrand Patel DO Active TRANSDERM-SCOP 1.5 MG PT72 1 patch applied behind ear q 3 day 20 04/13/28 SCOPOLAMINE BASE 47473689365 No Longer Active Bertrand Patel DO Active MACRODANTIN 100 MG CAPS one p.o. b.i.d. x2 weeks 03/04 NITROFURANTOIN MACROCRYSTAL 57890458155 No Longer Active Bertrand Patel DO Active MACRODANTIN 100 MG CAPS one p.o. b.i.d. x2 weeks 03/04 MACRODANTIN 100 MG CAPS 9384913 NITROFURANTOIN MACROCRYSTAL Inactive TRANSDERM-SCOP 1.5 MG PT72 [...] at 7 days PERMETHRIN 5 % CREA 691397 PERMETHRIN Inactive WELLBUTRIN 75 MG TABS 2 times daily WELLBUTRIN 75 MG TABS BUPROPION HCL Inactive CYMBALTA 30 MG CPEP 1 cap by mouth daily CYMBALTA 30 MG CPEP 677530 DULOXETINE HCL Inactive AZITHROMYCIN 500 MG SOLR 1 po q day ALTA THROMYCIN 500 MG SOLR 31944733623 AZITHROMYCIN Inactive CINNAMON ALPHA LIPOIC AC CMPLX CAPS by mouth twice a d ay in AM by mouth twice a day in PM CINNAMON ALPHA LIPOIC AC CMPLX CAPS ALPHA LIPOIC [id number] CAPS Inactive MICARDIS HCT 80-12.5 MG TABS 1 qd MICARDI S HCT 80-12.5 MG TABS 622310 TELMISARTAN-HCTZ Inactive PRAVASTATIN SODIUM 20 MG TABS 1 tablet by mouth daily at bedtime PRAVASTATIN SODIUM 20 MG TABS 647662 PRAVASTATIN SODIUM Inactive FUROSEMIDE 20 MG TABS 1 pill by mouth daily if needed for edema FUROSEMIDE 20 MG TABS 134007 FUROSEMIDE Inactive METFORMIN HCL 500 MG TABS 1 bid METFORMIN HCL 500 MG TABS 121680 METFORMIN HCL Inactive B-12 1000 MCG CAPS 1 tab daily B-12 1000 MCG CAP S CYANOCOBALAMIN Inactive VITAMIN E 200 UNIT CAPS 1 cap po qd VITAMIN E 2 00 UNIT CAPS 5455290 VITAMIN E Inactive [facility] MELATONIN 5-10 MG CR-TABS Take one by mouth daily at bedtime [facility] MELATONIN 5-10 MG CR-TABS MELATONIN-PYRIDOXI NE Inactive LORTAB 7.5-500 MG TABS take one po Q6 hours LORTAB 7.5-500 MG TABS HYDROCODONE-ACETAMINOPHEN Inactive AZITHROMYCIN 250 MG ORAL TABS Take 2 tabs po today then 1 ta b po daily AZITHROMYCIN 250 MG ORAL TABS 1611919 AZITHROMYCI N Inactive SYMBICORT 160-4.5 MCG/ACT AERO 2 puffs BID SYMBICORT 160- 4.5 MCG/ACT AERO BUDESONIDE-FORMOTEROL FUMARATE Inactive ALBUTEROL SULFATE 0.083 % NEBU SOLN one vial per nebul izer every 4-6 hours as needed ALBUTEROL SULFATE 0.083 % NEBU SOLN 45988 8 ALBUTEROL SULFATE Inactive NEBULIZER MISC use as directed NEBULIZER MISC NEBULIZERS Inactive TESSALON PERLES 100 MG CAP 1 tablet by mouth 3 times daily 07/07 TESSALON PERLES 100 MG CAP 586588 BENZONATATE Inact jairo CYCLOBENZAPRINE HCL 10 MG TABS Take 1 tab TID PRN for muscle pain CYCLOBENZAPRINE HCL 10 MG TABS 406744 CYCLOBENZAPRINE HCL Inactive AUGMENTIN 875-125 MG TAB 1 po BID x 10 days AUGMENTIN 875- 125 MG TAB 883203 AMOXICILLIN-POT CLAVULANATE Inactive BACTROBAN 2 % CREAM Apply to affected area BID for up to 10 days BACTROBAN 2 % CREAM 632245 MUPIROCIN CALCIUM Inactive AMOXICILLIN 500 MG CAPS 2 po BID x 10 days AMOXICILLIN 500 MG CAPS 095898 AMOXICILLIN Inactive AZITHROMYCIN 250 MG TABS take 2 po today then take 1 po days 2-5 AZITHROMYCIN 250 MG TABS 8051383 AZITHROMYCIN Inactiv e LEVAQUIN 500 MG TABS 1 pill by mouth daily LEVAQUIN 500 MG TABS 764824 LEVOFLOXACIN Inactive AUGMENTIN 875-125 MG TABS 1 pill by mouth twice daily AUGMENTIN 875-125 MG TABS 694007 AMOXICILLIN-POT CLAVULANATE Inacti ve AUGMENTIN 875-125 MG TAB 1 po BID x 10 days AUGMENTIN 875- 125 MG TAB 670276 AMOXICILLIN-POT CLAVULANATE Inactive PREDNISONE 20 MG TAB take 3 tabs daily for 3 days , 2 tabs daily for 3 days, 1 tab daily for 3 days, 1/2 tab daily for 3 days PREDNISONE 20 MG TAB 819378 PREDNISONE Inactive CIPRO 500 MG TAB 1 tablet by mouth twice daily CIPRO 500 MG TAB 179506 CIPROFLOXACIN HCL Inactive Vital Signs Date Name [...] 4.3-6.0 Encounters Code Encounter Date Provider Facility CPT-72758 Level 4 Est. Patient 12:31:54 CDT Bertrand marquez [facility] CPT-63057 Level 3 Est. Patient 11:27:00 DOOR INSTALLER Ike Deluna MD [facility]-43347 Level 3 Est. Patient 08:50:57 DOOR INSTALLER Dangelo BARAJAS [facility] CPT-62878 Level 3 Est. Patient 10:04:13 CDT Bertrand marquez [facility]-58826 Level 4 Est. Patient 16:02:10 DOOR INSTALLER Dangelo DISABILITY SPECIALIST [facility] CPT-55770 Level 3 Est. Patient 13:04:54 DOOR INSTALLER Dangleo DISABILITY SPECIALIST [facility]-96173 Level 3 Est. Patient 12:56:37 CDT Bertrand marquez [facility] CPT-38715 Level 3 Est. Patient 19:12:03 CDT Yoli tolbert MD PhD [facility] CPT-80829 Level 3 Est. Patient 14:36:01 CDT Yoli tolbert MD [facility]-28973 Level 2 Est. Patient 08:00:22 CDT Jcarlos dc MD [facility]-53348 Level 3 Est. Patient 19:06:55 CDT Bertrand marquez [facility] CPT-98195 Level 3 Est. Patient 10:08:23 DOOR INSTALLER Bertrand marquez [facility]-12998 Level 3 Est. Patient 16:37:54 DOOR INSTALLER Bertrand marquez [facility] CPT-87666 Level 3 Est. Patient 11:31:59 DOOR INSTALLER Bertrand marquez [facility] CPT-95774 Level 3 Est. Patient 10:20:08 CDT Adolfo OSORIO [facility]-49084 Level 3 Est. Patient 13:45:20 CDT Sanket Ankit buckley [facility] CPT-07710 Level 3 Est. Patient 12:51:06 CDT Adolfo Monroyridge halljacklyn [facility] CPT-09073 Level 3 Est. Patient 11:22:51 DOOR INSTALLER Yoli tolbert MD PhD [facility] CPT-65771 Level 3 Est. Patient 13:33:19 CDT Bertrand Sabillon ee DO [facility] Procedures Code Procedure Name Date Entry Date Standard Desc ription CPT-27748 Wound Culture - LAB USE ONLY 15:45:25 CDT 2 CPT-03560 Venipuncture Draw Fee 10:23:01 CDT CPT-J0696 Rocephin 1000 mg (Ceftriaxone) 16:20:30 DOOR INSTALLER CPT-79357 Abx/Therapy Injection 16:20:29 DOOR INSTALLER CPT-J0696 Rocephin 1gm Inj Solr 15:51:59 DOOR INSTALLER CPT-68609 Chest 2V Frontal and Lat 15:20:28 DOOR INSTALLER 07/22 CPT-01007 Breathing Tx 14:51:55 DOOR INSTALLER CPT-04669 Breathing Tx 09:57:16 DOOR INSTALLER CPT-52279 Knee comp 4/> V 11:58:06 DOOR INSTALLER
--- OUTSIDE RECORDS SUMMARY | 2019-11-13 10:22 | XMS REPORT | Clinical Summary ---
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 technician sinusitis, unspecified Fatigue 780.79 Active Silvia [...] BID x 10 days AMOXICILLIN- POT CLAVULANATE 33073359865 Active Adriana Bender LPN Ac tive TESSALON PERLES 100 MG CAP 1 tablet by mouth 3 times daily BENZONATATE 34273127906 Active Silvia Arnold APRN Active CHEWABLE CALCIUM 500-200-40 MG-UNT-MCG ORAL CHEW 1 chew tab bid 201 11/03/03 CALCIUM-VITAMIN D-VITAMIN K 17713638731 Active Silvia Arnold APRN Active EQ COMPLETE MULTIVIT ADULT 50+ ORAL TABS 1 tab po bid MULTIPLE VITAMINS-MINERALS 92291559863 Active Silvia Arnold APRN Act jairo HYDROCODONE-ACETAMINOPHEN 7.5-325 MG TABS TAKE ONE TAB EVERY 6 HOURS BY MOUTH NEEDED FOR PAIN HYDROCODONE-ACETAMINOPHEN 08832375014 Acti ve Bertrand Patel DO Active LORTAB 7.5-500 MG TABS take one po Q6 hours HYDROCODONE-ACETAMINOPHEN No Longer Active Nirmal Robbins RN Active [facility] MELAT[facility] 5-10 MG CR-TABS Take one by mouth daily at bedtime MELATONIN-PYRIDOXINE 01324520320 No Longer Active Bertrand Patel DO Active VITAMIN E 200 UNIT CAPS 1 cap po qd VITAMIN E 316 92165138 No Longer Active Bertrand Patel DO Active B-12 1000 MCG CAPS 1 tab daily CYANOCOBALAMIN 31 895180366 No Longer Active Bertrand Patel DO Active METFORMIN HCL 500 MG TABS 1 bid METFORMIN HCL 65602101680 No Longer Active Bertrand Patel DO Active FUROSEMIDE 20 MG TABS 1 pill by mouth daily if needed for edema FUROSEMIDE 61935925101 No Longer Active Bertrand Patel DO Act jairo PRAVASTATIN SODIUM 20 MG TABS 1 tablet by mouth daily at bedtime PRAVASTATIN SODIUM 41014347128 No Longer Active Bertrand Patel DO Active AUGMENTIN 875-125 MG TABS 1 pill by mouth twice daily AMOXICILLIN-POT CLAVULANATE 47668870523 No Longer Active Yoli Mercado MD PhD Active LEVAQUIN 500 MG TABS 1 pill by mouth daily LEVO FLOXACIN 80022581749 No Longer Active Yoli Mercado MD PhD Active CYCLOBENZAPRINE HCL 10 MG TABS Take 1 tab TID PRN for muscle pain CYCLOBENZAPRINE HCL 00044568803 Active Brittni Fernándezum SALES OPERATIONS ASSOCIATE Active AMLODIPINE BESYLATE 5 MG TABS 1 tablet by mouth daily for bl ood pressure AMLODIPINE BESYLATE 25054389276 Active Nitza Dorman PT,RMA Active MICARDIS 80 MG TABS 1 tablet daily for blood pressure TELMISARTAN 99541358195 Active Nitza Mullins RPT,RMA Active MICARDIS HCT 80-12.5 MG TABS 1 qd TELMISARTA N-HCTZ 08157248895 No Longer Active Bertrand Patel DO Active CINNAMON ALPHA LIPOIC AC CMPLX CAPS by mouth twice a d ay in AM by mouth twice a day in PM ALPHA LIPOIC XFXM-ID-LPKENNOB CAPS 885586 35204 No Longer Active Bertrand Patel DO Active AZITHROMYCIN 500 MG SOLR 1 po q day AZITHROMYCI N 90308083171 No Longer Active Bertrand Patel DO Active CYMBALTA 30 MG CPEP 1 cap by mouth daily DULOXE CATHI HCL 56283720832 No Longer Active Bertrand Patel DO Active CYMBALTA 60 MG CPEP 1 cap by mouth daily DULOXE CATHI HCL 97410916074 Active Nitza Mullins RPT,RMA Active WELLBUTRIN 75 MG TABS 2 times daily BUPROPION H CL 84138441809 No Longer Active Bertrand Patel DO Active PROAIR HFA 108 (90 BASE) MCG/ACT AERS take one to two puffs po Q4-6 hour prn cough and shortness of breath ALBUTEROL SULFATE 9792040693 2 Active Silvia Arnold PHOTOGRAMMETRIC ENGINEER Active AZITHROMYCIN 250 MG TABS take 2 po today then take 1 po days 2-5 AZITHROMYCIN 00262391736 No Longer Active Adolfo OSORIO Active PERMETHRIN 5 % CREA apply neck to toes tonight a nd then rinse off in morning. repeat at 7 days PERMETHRIN 49721370536 No Longer Active Adolfo OSORIO Active AMOXICILLIN 500 MG CAPS 2 po BID x 10 days AMOX ICILLIN 87174752305 No Longer Active Yoli Mercado MD PhD Active ALPRAZOLAM 0.5 MG TAB 1 tab by mouth tid ALPRAZOL AM 38519418572 Active Bertrand Patel DO Active INSUPEN ULTRAFIN 31G X 6 MM MISC USE DIRECTED 03/04 INSULIN PEN NEEDLE 27640061288 No Longer Active Bertrand Patel DO Active TRANSDERM-SCOP 1.5 MG PT72 1 patch applied behind ear q 3 day 20 04/13/28 SCOPOLAMINE BASE 70792244303 No Longer Active Bertrand Patel DO Active MACRODANTIN 100 MG CAPS one p.o. b.i.d. x2 weeks 03/04 NITROFURANTOIN MACROCRYSTAL 19329415549 No Longer Active Bertrand Patel DO Active MACRODANTIN 100 MG CAPS one p.o. b.i.d. x2 weeks 03/04 MACRODANTIN 100 MG CAPS 0263582 NITROFURANTOIN MACROCRYSTAL Inactive TRANSDERM-SCOP 1.5 MG PT72 [...] at 7 days PERMETHRIN 5 % CREA 331821 PERMETHRIN Inactive WELLBUTRIN 75 MG TABS 2 times daily WELLBUTRIN 75 MG TABS 457723 BUPROPION HCL Inactive CYMBALTA 30 MG CPEP 1 cap by mouth daily CYMBALTA 30 MG CPEP 286893 DULOXETINE HCL Inactive AZITHROMYCIN 500 MG SOLR 1 po q day ALTA THROMYCIN 500 MG SOLR 28438924371 AZITHROMYCIN Inactive CINNAMON ALPHA LIPOIC AC CMPLX CAPS by mouth twice a d ay in AM by mouth twice a day in PM CINNAMON ALPHA LIPOIC AC CMPLX CAPS ALPHA LIPOIC [id number] CAPS Inactive MICARDIS HCT 80-12.5 MG TABS 1 qd MICARDI S HCT 80-12.5 MG TABS 613993 TELMISARTAN-HCTZ Inactive PRAVASTATIN SODIUM 20 MG TABS 1 tablet by mouth daily at bedtime PRAVASTATIN SODIUM 20 MG TABS 958980 PRAVASTATIN SODIUM Inactive FUROSEMIDE 20 MG TABS 1 pill by mouth daily if needed for edema FUROSEMIDE 20 MG TABS 592095 FUROSEMIDE Inactive METFORMIN HCL 500 MG TABS 1 bid METFORMIN HCL 500 MG TABS 509959 METFORMIN HCL Inactive B-12 1000 MCG CAPS 1 tab daily B-12 1000 MCG CAP S CYANOCOBALAMIN Inactive VITAMIN E 200 UNIT CAPS 1 cap po qd VITAMIN E 2 00 UNIT CAPS 7361404 VITAMIN E Inactive [facility] MELATONIN 5-10 MG CR-TABS Take one by mouth daily at bedtime [facility] MELATONIN 5-10 MG CR-TABS MELATONIN-PYRIDOXI NE Inactive LORTAB 7.5-500 MG TABS take one po Q6 hours LORTAB 7.5-500 MG TABS HYDROCODONE-ACETAMINOPHEN Inactive AMOXICILLIN 500 MG CAPS 2 po BID x 10 days AMOXICILLIN 500 MG CAPS 374653 AMOXICILLIN Inactive AZITHROMYCIN 250 MG TABS take 2 po today then take 1 po days 2-5 AZITHROMYCIN 250 MG TABS 2790437 AZITHROMYCIN Inactiv e LEVAQUIN 500 MG TABS 1 pill by mouth daily LEVAQUIN 500 MG TABS 987808 LEVOFLOXACIN Inactive AUGMENTIN 875-125 MG TABS 1 pill by mouth twice daily AUGMENTIN 875-125 MG TABS 935288 AMOXICILLIN-POT CLAVULANATE Inacti ve Vital Signs Date [...] Negative;Positive Encounters Code Encounter Date Provider Facility CPT-99746 Level 3 Est. Patient 13:04:54 MALIHA Pierson APRN [facility] CPT-25185 Level 3 Est. Patient 12:56:37 CDT Bertrand marquez [facility] CPT-52877 Level 3 Est. Patient 19:12:03 CDT Yoli tolbert MD [facility]-91836 Level 3 Est. Patient 14:36:01 CDT Yoli tolbert MD [facility] CPT-71760 Level 2 Est. Patient 08:00:22 CDT Jcarlos dc MD [facility]-25024 Level 3 Est. Patient 19:06:55 CDT Bertrand marquez [facility] CPT-66006 Level 3 Est. Patient 10:08:23 DIRECTOR OF ONCOLOGY Bertrand marquez [facility] CPT-62249 Level 3 Est. Patient 16:37:54 DIRECTOR OF ONCOLOGY Bertrand marquez [facility] CPT-32387 Level 3 Est. Patient 11:31:59 DIRECTOR OF ONCOLOGY Bertrand marquez [facility] CPT-33407 Level 3 Est. Patient 10:20:08 CDT Adolfo villasenor [facility] CPT-68037 Level 3 Est. Patient 13:45:20 CDT Sanket buckley [facility] CPT-90240 Level 3 Est. Patient 12:51:06 CDT Adolfo villasenor [facility] CPT-47539 Level 3 Est. Patient 11:22:51 DIRECTOR OF ONCOLOGY Yoli tolbert MD PhD [facility] CPT-16545 Level 3 Est. Patient 13:33:19 CDT Bertrand marquez [facility] Procedures Code Procedure Name Date Entry Date Standard Desc ription CPT-92426 Breathing Tx 09:57:16 DIRECTOR OF ONCOLOGY CPT-94905 Knee comp 4/> V 11:58:06 DIRECTOR OF ONCOLOGY
--- OUTSIDE RECORDS SUMMARY | 2019-11-13 10:22 | XMS REPORT | Clinical Summary ---
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 Fatigue 780.79 Active Silvia [...] and 1/2 tab po at noon MODAFINIL 56374926467 Active Keysha Jones MA Active CYCLOBENZAPRINE HCL 10 MG TABS Take 1 tab TID PRN for muscle pain CYCLOBENZAPRINE HCL 10928765550 No Longer Active Bertrand Rowan tive TESSALON PERLES 100 MG CAP 1 tablet by mouth 3 times daily 07/07 BENZONATATE 78202845245 No Longer Active Bertrand Patel DO Ac tive NEBULIZER MISC use as directed NEBULIZERS 273104 03762 No Longer Active Bertrand Patel DO Active ALBUTEROL SULFATE 0.083 % NEBU SOLN one vial per nebul izer every 4-6 hours as needed ALBUTEROL SULFATE 21200141051 No Longer Active Bertrand Patel DO Active SYMBICORT 160-4.5 MCG/ACT AERO 2 puffs BID BUDESONIDE- FORMOTEROL FUMARATE 97644097505 No Longer Active Bertrand Patel DO Ac tive PREDNISONE 20 MG TAB take 3 tabs daily for 3 days , 2 tabs daily for 3 days, 1 tab daily for 3 days, 1/2 tab daily for 3 days P REDNISONE 46085952317 No Longer Active Silvia Arnold APRN Active AZITHROMYCIN 250 MG ORAL TABS Take 2 tabs po today then 1 ta b po daily AZITHROMYCIN 23689018403 No Longer Active Silvia Jorge gavin SOILS ANALYST Active AUGMENTIN 875-125 MG TAB 1 po BID x 10 days AMOXICILLIN- POT CLAVULANATE 45970890148 No Longer Active Adriana Bender LPN Active CHEWABLE CALCIUM 500-200-40 MG-UNT-MCG ORAL CHEW 1 chew tab bid 201 11/03/03 CALCIUM-VITAMIN D-VITAMIN K 95729252222 Active Silvia Arnold APRN Active EQ COMPLETE MULTIVIT ADULT 50+ ORAL TABS 1 tab po bid MULTIPLE VITAMINS-MINERALS 45195114589 Active iSlvia Arnold APRN Act jairo HYDROCODONE-ACETAMINOPHEN 7.5-325 MG TABS TAKE ONE TAB EVERY 6 HOURS BY MOUTH NEEDED FOR PAIN HYDROCODONE-ACETAMINOPHEN 43304803394 Acti ve Bertrand Patel DO Active LORTAB 7.5-500 MG TABS take one po Q6 hours HYDROCODONE-ACETAMINOPHEN No Longer Active Nirmal Robbins RN Active [facility] MELATONIN 5-10 MG CR-TABS Take one by mouth daily at bedtime MELATONIN-PYRIDOXINE 49916361899 No Longer Active Bertrand Patel DO Active VITAMIN E 200 UNIT CAPS 1 cap po qd VITAMIN E 316 98293389 No Longer Active Bertrand Patel DO Active B-12 1000 MCG CAPS 1 tab daily CYANOCOBALAMIN 31 825226188 No Longer Active Bertrand Patel DO Active METFORMIN HCL 500 MG TABS 1 bid METFORMIN HCL 62827741809 No Longer Active Bertrand Patel DO Active FUROSEMIDE 20 MG TABS 1 pill by mouth daily if needed for edema FUROSEMIDE 21649181401 No Longer Active Bertrand Patel DO Act jairo PRAVASTATIN SODIUM 20 MG TABS 1 tablet by mouth daily at bedtime PRAVASTATIN SODIUM 48795117763 No Longer Active Bertrand Patel DO Active AUGMENTIN 875-125 MG TABS 1 pill by mouth twice daily AMOXICILLIN-POT CLAVULANATE 71502729761 No Longer Active Yoli Mercado MD PhD Active LEVAQUIN 500 MG TABS 1 pill by mouth daily LEVO FLOXACIN 23564483360 No Longer Active Yoli Mercado MD PhD Active AMLODIPINE BESYLATE 5 MG TABS 1 tablet by mouth daily for bl ood pressure AMLODIPINE BESYLATE 29422049526 Active Keysha Jones MA Active MICARDIS 80 MG TABS 1 tablet daily for blood pressure TELMISARTAN 57199365239 Active Keysha Jones MA Active MICARDIS HCT 80-12.5 MG TABS 1 qd TELMISARTA N-HCTZ 78183032929 No Longer Active Bertrand Patel DO Active CINNAMON ALPHA LIPOIC AC CMPLX CAPS by mouth twice a d ay in AM by mouth twice a day in PM ALPHA LIPOIC JVAK-ZY-NFRWALCE CAPS 943478 91190 No Longer Active Bertrand Patel DO Active AZITHROMYCIN 500 MG SOLR 1 po q day AZITHROMYCI N 28932635053 No Longer Active Bertrand Patel DO Active CYMBALTA 30 MG CPEP 1 cap by mouth daily DULOXE CATHI HCL 40051655944 No Longer Active Bertrand Patel DO Active CYMBALTA 60 MG CPEP 1 cap by mouth daily DULOXE CATHI HCL 51879464074 Active Keysha Jones MA Active WELLBUTRIN 75 MG TABS 2 times daily BUPROPION H CL 17013781210 No Longer Active Bertrand W Jorge DO Active PROAIR HFA 108 (90 BASE) MCG/ACT AERS take one to two puffs po Q4-6 hour prn cough and shortness of breath ALBUTEROL SULFATE 8179291110 2 Active Silvia Arnold SOILS ANALYST Active AZITHROMYCIN 250 MG TABS take 2 po today then take 1 po days 2-5 AZITHROMYCIN 79803852508 No Longer Active Adolfo OSORIO Active PERMETHRIN 5 % CREA apply neck to toes tonight a nd then rinse off in morning. repeat at 7 days PERMETHRIN 67624400115 No Longer Active Adolfo OSORIO Active AMOXICILLIN 500 MG CAPS 2 po BID x 10 days AMOX ICILLIN 17134630656 No Longer Active Yoli Mercado MD PhD Active ALPRAZOLAM 0.5 MG TAB 1 tab by mouth tid ALPRAZOL AM 59745915453 Active Nitza Mullins RPT,RMA Active INSUPEN ULTRAFIN 31G X 6 MM MISC USE DIRECTED 03/04 INSULIN PEN NEEDLE 74261564711 No Longer Active Bertrand Patel DO Active TRANSDERM-SCOP 1.5 MG PT72 1 patch applied behind ear q 3 day 20 04/13/28 SCOPOLAMINE BASE 45974706934 No Longer Active Bertrand Patel DO Active MACRODANTIN 100 MG CAPS one p.o. b.i.d. x2 weeks 03/04 NITROFURANTOIN MACROCRYSTAL 15297688546 No Longer Active Bertrand Patel DO Active MACRODANTIN 100 MG CAPS one p.o. b.i.d. x2 weeks 03/04 MACRODANTIN 100 MG CAPS 6180573 NITROFURANTOIN MACROCRYSTAL Inactive TRANSDERM-SCOP 1.5 MG PT72 [...] at 7 days PERMETHRIN 5 % CREA 467427 PERMETHRIN Inactive WELLBUTRIN 75 MG TABS 2 times daily WELLBUTRIN 75 MG TABS BUPROPION HCL Inactive CYMBALTA 30 MG CPEP 1 cap by mouth daily CYMBALTA 30 MG CPEP 950722 DULOXETINE HCL Inactive AZITHROMYCIN 500 MG SOLR 1 po q day ALTA THROMYCIN 500 MG SOLR 85628918872 AZITHROMYCIN Inactive CINNAMON ALPHA LIPOIC AC CMPLX CAPS by mouth twice a d ay in AM by mouth twice a day in PM CINNAMON ALPHA LIPOIC AC CMPLX CAPS ALPHA LIPOIC [id number] CAPS Inactive MICARDIS HCT 80-12.5 MG TABS 1 qd MICARDI S HCT 80-12.5 MG TABS 336354 TELMISARTAN-HCTZ Inactive PRAVASTATIN SODIUM 20 MG TABS 1 tablet by mouth daily at bedtime PRAVASTATIN SODIUM 20 MG TABS 656740 PRAVASTATIN SODIUM Inactive FUROSEMIDE 20 MG TABS 1 pill by mouth daily if needed for edema FUROSEMIDE 20 MG TABS 848271 FUROSEMIDE Inactive METFORMIN HCL 500 MG TABS 1 bid METFORMIN HCL 500 MG TABS 596848 METFORMIN HCL Inactive B-12 1000 MCG CAPS 1 tab daily B-12 1000 MCG CAP S CYANOCOBALAMIN Inactive VITAMIN E 200 UNIT CAPS 1 cap po qd VITAMIN E 2 00 UNIT CAPS 8461591 VITAMIN E Inactive [facility] MELATONIN 5-10 MG CR-TABS Take one by mouth daily at bedtime [facility] MELATONIN 5-10 MG CR-TABS MELATONIN-PYRIDOXI NE Inactive LORTAB 7.5-500 MG TABS take one po Q6 hours LORTAB 7.5-500 MG TABS HYDROCODONE-ACETAMINOPHEN Inactive AZITHROMYCIN 250 MG ORAL TABS Take 2 tabs po today then 1 ta b po daily AZITHROMYCIN 250 MG ORAL TABS 6905554 AZITHROMYCI N Inactive SYMBICORT 160-4.5 MCG/ACT AERO 2 puffs BID SYMBICORT 160- 4.5 MCG/ACT AERO BUDESONIDE-FORMOTEROL FUMARATE Inactive ALBUTEROL SULFATE 0.083 % NEBU SOLN one vial per nebul izer every 4-6 hours as needed ALBUTEROL SULFATE 0.083 % NEBU SOLN 52372 8 ALBUTEROL SULFATE Inactive NEBULIZER MISC use as directed NEBULIZER MISC NEBULIZERS Inactive TESSALON PERLES 100 MG CAP 1 tablet by mouth 3 times daily 07/07 TESSALON PERLES 100 MG CAP 031270 BENZONATATE Inact jairo CYCLOBENZAPRINE HCL 10 MG TABS Take 1 tab TID PRN for muscle pain CYCLOBENZAPRINE HCL 10 MG TABS 782573 CYCLOBENZAPRINE HCL Inactive AMOXICILLIN 500 MG CAPS 2 po BID x 10 days AMOXICILLIN 500 MG CAPS 632431 AMOXICILLIN Inactive AZITHROMYCIN 250 MG TABS take 2 po today then take 1 po days 2-5 AZITHROMYCIN 250 MG TABS 0264810 AZITHROMYCIN Inactiv e LEVAQUIN 500 MG TABS 1 pill by mouth daily LEVAQUIN 500 MG TABS 540331 LEVOFLOXACIN Inactive AUGMENTIN 875-125 MG TABS 1 pill by mouth twice daily AUGMENTIN 875-125 MG TABS 990547 AMOXICILLIN-POT CLAVULANATE Inacti ve AUGMENTIN 875-125 MG TAB 1 po BID x 10 days AUGMENTIN 875- 125 MG TAB 277284 AMOXICILLIN-POT CLAVULANATE Inactive PREDNISONE 20 MG TAB take 3 tabs daily for 3 days , 2 tabs daily for 3 days, 1 tab daily for 3 days, 1/2 tab daily for 3 days PREDNISONE 20 MG TAB 377067 PREDNISONE Inactive Vital Signs Date Name Value [...] 5.8 % 4.3-6.0 cholesterol, serum 200 mg/dL 607-787 6319/07/22 triglyceride, serum, fasting 56 mg/dL 30-200 HDL cholesterol, serum 80 mg/dL 32-96 LDL cholesterol, serum 109 mg/dL 0-130 albumin/creatinine ratio, urine < 30 mg/g mg/g{creat} 0-2 9 TSH 1.16 m[iU]/mL 0.36-3.74 sodium, serum 142 mmol/L 018-670 0365/07/22 carbon dioxide, venous blood 33.1 mmol/L 21.0-32 [...] Negative;Positive Encounters Code Encounter Date Provider Facility CPT-21155 Level 3 Est. Patient 10:04:13 CDT Bertrand marquez [facility] CPT-11341 Level 4 Est. Patient 16:02:10 BATH SOLUTION MAKER Dangelo SOILS ANALYST [facility] CPT-46720 Level 3 Est. Patient 13:04:54 BATH SOLUTION MAKER Dangelo SOILS ANALYST [facility] CPT-85874 Level 3 Est. Patient 12:56:37 CDT Bertrand marquez DO [facility] CPT-05935 Level 3 Est. Patient 19:12:03 CDT Yoli tolbert MD [facility] CPT-87310 Level 3 Est. Patient 14:36:01 CDT Yoli tolbert MD [facility] CPT-90605 Level 2 Est. Patient 08:00:22 CDT Jcarlos dc MD [facility] CPT-98791 Level 3 Est. Patient 19:06:55 CDT Bertrand marquez [facility] CPT-52657 Level 3 Est. Patient 10:08:23 BATH SOLUTION MAKER Bertrand marquez [facility] CPT-88776 Level 3 Est. Patient 16:37:54 BATH SOLUTION MAKER Bertrand marquez [facility] CPT-28630 Level 3 Est. Patient 11:31:59 BATH SOLUTION MAKER Bertrand marquez [facility] CPT-89927 Level 3 Est. Patient 10:20:08 CDT Adolfo villasenor [facility] CPT-88737 Level 3 Est. Patient 13:45:20 CDT Sanket buckley [facility] CPT-43661 Level 3 Est. Patient 12:51:06 CDT Adolfo villasenor [facility] CPT-57904 Level 3 Est. Patient 11:22:51 BATH SOLUTION MAKER Yoli tolbert MD [facility] CPT-11043 Level 3 Est. Patient 13:33:19 CDT Bertrand marquez [facility] Procedures Code Procedure Name Date Entry Date Standard Desc ription CPT-17402 Venipuncture Draw Fee 10:23:01 CDT CPT-J0696 Rocephin 1000 mg (Ceftriaxone) 16:20:30 BATH SOLUTION MAKER CPT-03782 Abx/Therapy Injection 16:20:29 BATH SOLUTION MAKER CPT-J0696 Rocephin 1gm Inj Solr 15:51:59 BATH SOLUTION MAKER CPT-50747 Chest 2V Frontal and Lat 15:20:28 BATH SOLUTION MAKER 07/22 CPT-81133 Breathing Tx 14:51:55 BATH SOLUTION MAKER CPT-95787 Breathing Tx 09:57:16 BATH SOLUTION MAKER CPT-82848 Knee comp 4/> V 11:58:06 BATH SOLUTION MAKER
--- OUTSIDE RECORDS SUMMARY | 2019-11-13 10:22 | XMS REPORT | Clinical Summary ---
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 Fatigue 780.79 Active Silvia [...] BID x 10 days AMOXICILLIN- POT CLAVULANATE 62124022123 Active Adriana Bender LPN Ac tive TESSALON PERLES 100 MG CAP 1 tablet by mouth 3 times daily BENZONATATE 12414546086 Active Silvia Arnold APRN Active CHEWABLE CALCIUM 500-200-40 MG-UNT-MCG ORAL CHEW 1 chew tab bid 201 11/03/03 CALCIUM-VITAMIN D-VITAMIN K 85634935603 Active Silvia Arnold APRN Active EQ COMPLETE MULTIVIT ADULT 50+ ORAL TABS 1 tab po bid MULTIPLE VITAMINS-MINERALS 13816268413 Active Silvia Arnold APRN Act jairo HYDROCODONE-ACETAMINOPHEN 7.5-325 MG TABS TAKE ONE TAB EVERY 6 HOURS BY MOUTH NEEDED FOR PAIN HYDROCODONE-ACETAMINOPHEN 57966401282 Acti ve Bertrand Patel DO Active LORTAB 7.5-500 MG TABS take one po Q6 hours HYDROCODONE-ACETAMINOPHEN No Longer Active Nirmal Robbins RN Active [facility] MEL[facility] 5-10 MG CR-TABS Take one by mouth daily at bedtime MELATONIN-PYRIDOXINE 36310736560 No Longer Active Bertrand W Jorge DO Active VITAMIN E 200 UNIT CAPS 1 cap po qd VITAMIN E 316 23040641 No Longer Active Bertrand Patel DO Active B-12 1000 MCG CAPS 1 tab daily CYANOCOBALAMIN 31 542086849 No Longer Active Bertrand Patel DO Active METFORMIN HCL 500 MG TABS 1 bid METFORMIN HCL 01282741771 No Longer Active Bertrand Patel DO Active FUROSEMIDE 20 MG TABS 1 pill by mouth daily if needed for edema FUROSEMIDE 04950783631 No Longer Active Bertrand Patel DO Act jairo PRAVASTATIN SODIUM 20 MG TABS 1 tablet by mouth daily at bedtime PRAVASTATIN SODIUM 01583370718 No Longer Active Bertrand Patel DO Active AUGMENTIN 875-125 MG TABS 1 pill by mouth twice daily AMOXICILLIN-POT CLAVULANATE 34117319986 No Longer Active Yoli Mercado MD PhD Active LEVAQUIN 500 MG TABS 1 pill by mouth daily LEVO FLOXACIN 67064111766 No Longer Active Yoli Mercado MD PhD Active CYCLOBENZAPRINE HCL 10 MG TABS Take 1 tab TID PRN for muscle pain CYCLOBENZAPRINE HCL 28931585243 Active Brittni Fernándezum STRIPE MATCHER Active AMLODIPINE BESYLATE 5 MG TABS 1 tablet by mouth daily for bl ood pressure AMLODIPINE BESYLATE 47710425627 Active Nitza Dorman PT,RMA Active MICARDIS 80 MG TABS 1 tablet daily for blood pressure TELMISARTAN 45636672132 Active Nitza Mullins RPT,RMA Active MICARDIS HCT 80-12.5 MG TABS 1 qd TELMISARTA N-HCTZ 44766975107 No Longer Active Bertrand Ptael DO Active CINNAMON ALPHA LIPOIC AC CMPLX CAPS by mouth twice a d ay in AM by mouth twice a day in PM ALPHA LIPOIC DIQK-II-CJSCDYOM CAPS 379664 31711 No Longer Active Bertrand Patel DO Active AZITHROMYCIN 500 MG SOLR 1 po q day AZITHROMYCI N 67173140741 No Longer Active Bertrand Patel DO Active CYMBALTA 30 MG CPEP 1 cap by mouth daily DULOXE CATHI HCL 95464789420 No Longer Active Bertrand Patel DO Active CYMBALTA 60 MG CPEP 1 cap by mouth daily DULOXE CATHI HCL 05367543998 Active Nitza Mullins RPT,RMA Active WELLBUTRIN 75 MG TABS 2 times daily BUPROPION H CL 81139620103 No Longer Active Bertrand Patel DO Active PROAIR HFA 108 (90 BASE) MCG/ACT AERS take one to two puffs po Q4-6 hour prn cough and shortness of breath ALBUTEROL SULFATE 2901930799 2 Active Silvia Arnold FIRER HELPER Active AZITHROMYCIN 250 MG TABS take 2 po today then take 1 po days 2-5 AZITHROMYCIN 82466653329 No Longer Active Adolfo OSORIO Active PERMETHRIN 5 % CREA apply neck to toes tonight a nd then rinse off in morning. repeat at 7 days PERMETHRIN 34209072426 No Longer Active Adolfo OSORIO Active AMOXICILLIN 500 MG CAPS 2 po BID x 10 days AMOX ICILLIN 97436252445 No Longer Active Yoli Mercado MD PhD Active ALPRAZOLAM 0.5 MG TAB 1 tab by mouth tid ALPRAZOL AM 96530063472 Active Bertrand Patel DO Active INSUPEN ULTRAFIN 31G X 6 MM MISC USE DIRECTED 03/04 INSULIN PEN NEEDLE 85988590435 No Longer Active Bertrand Patel DO Active TRANSDERM-SCOP 1.5 MG PT72 1 patch applied behind ear q 3 day 20 04/13/28 SCOPOLAMINE BASE 51099929753 No Longer Active Bertrand Patel DO Active MACRODANTIN 100 MG CAPS one p.o. b.i.d. x2 weeks 03/04 NITROFURANTOIN MACROCRYSTAL 83363876507 No Longer Active Bertrand Patel DO Active MACRODANTIN 100 MG CAPS one p.o. b.i.d. x2 weeks 03/04 MACRODANTIN 100 MG CAPS 5502905 NITROFURANTOIN MACROCRYSTAL Inactive TRANSDERM-SCOP 1.5 MG PT72 [...] at 7 days PERMETHRIN 5 % CREA 971411 PERMETHRIN Inactive WELLBUTRIN 75 MG TABS 2 times daily WELLBUTRIN 75 MG TABS 451364 BUPROPION HCL Inactive CYMBALTA 30 MG CPEP 1 cap by mouth daily CYMBALTA 30 MG CPEP 493442 DULOXETINE HCL Inactive AZITHROMYCIN 500 MG SOLR 1 po q day ALTA THROMYCIN 500 MG SOLR 23591701531 AZITHROMYCIN Inactive CINNAMON ALPHA LIPOIC AC CMPLX CAPS by mouth twice a d ay in AM by mouth twice a day in PM CINNAMON ALPHA LIPOIC AC CMPLX CAPS ALPHA LIPOIC YBHI-ES-BLEVDVFT CAPS Inactive MICARDIS HCT 80-12.5 MG TABS 1 qd MICARDI S HCT 80-12.5 MG TABS 748182 TELMISARTAN-HCTZ Inactive PRAVASTATIN SODIUM 20 MG TABS 1 tablet by mouth daily at bedtime PRAVASTATIN SODIUM 20 MG TABS 313163 PRAVASTATIN SODIUM Inactive FUROSEMIDE 20 MG TABS 1 pill by mouth daily if needed for edema FUROSEMIDE 20 MG TABS 340971 FUROSEMIDE Inactive METFORMIN HCL 500 MG TABS 1 bid METFORMIN HCL 500 MG TABS 280592 METFORMIN HCL Inactive B-12 1000 MCG CAPS 1 tab daily B-12 1000 MCG CAP S CYANOCOBALAMIN Inactive VITAMIN E 200 UNIT CAPS 1 cap po qd VITAMIN E 2 00 UNIT CAPS 3000863 VITAMIN E Inactive [facility] MELATONIN 5-10 MG CR-TABS Take one by mouth daily at bedtime [facility] MELATONIN 5-10 MG CR-TABS MELATONIN-PYRIDOXI NE Inactive LORTAB 7.5-500 MG TABS take one po Q6 hours LORTAB 7.5-500 MG TABS HYDROCODONE-ACETAMINOPHEN Inactive AMOXICILLIN 500 MG CAPS 2 po BID x 10 days AMOXICILLIN 500 MG CAPS 695972 AMOXICILLIN Inactive AZITHROMYCIN 250 MG TABS take 2 po today then take 1 po days 2-5 AZITHROMYCIN 250 MG TABS 1586012 AZITHROMYCIN Inactiv e LEVAQUIN 500 MG TABS 1 pill by mouth daily LEVAQUIN 500 MG TABS 329828 LEVOFLOXACIN Inactive AUGMENTIN 875-125 MG TABS 1 pill by mouth twice daily AUGMENTIN 875-125 MG TABS 359094 AMOXICILLIN-POT CLAVULANATE Inacti ve Vital Signs Date [...] Negative;Positive Encounters Code Encounter Date Provider Facility CPT-54858 Level 3 Est. Patient 13:04:54 DRAIN CLEANER PLUMBER Dangelo BARAJAS [facility] CPT-45224 Level 3 Est. Patient 12:56:37 CDT Bertrand marquez [facility] CPT-67458 Level 3 Est. Patient 19:12:03 CDT Yoli tolbert MD [facility]-22800 Level 3 Est. Patient 14:36:01 CDT Yoli tolbert MD [facility] CPT-35507 Level 2 Est. Patient 08:00:22 CDT Jcarlos dc MD [facility]-18257 Level 3 Est. Patient 19:06:55 CDT Bertrand marquez [facility] CPT-00541 Level 3 Est. Patient 10:08:23 DRAIN CLEANER PLUMBER Bertrand marquez [facility] CPT-10345 Level 3 Est. Patient 16:37:54 DRAIN CLEANER PLUMBER Bertrand marquez [facility] CPT-44002 Level 3 Est. Patient 11:31:59 DRAIN CLEANER PLUMBER Bertrand marquez [facility] CPT-51032 Level 3 Est. Patient 10:20:08 CDT Adolfo villasenor [facility] CPT-02121 Level 3 Est. Patient 13:45:20 CDT Sanket buckley [facility] CPT-10407 Level 3 Est. Patient 12:51:06 CDT Adolfo villasenor [facility] CPT-90759 Level 3 Est. Patient 11:22:51 DRAIN CLEANER PLUMBER Yoli tolbert MD [facility] CPT-98668 Level 3 Est. Patient 13:33:19 CDT Bertrand marquez [facility] Procedures Code Procedure Name Date Entry Date Standard Desc ription CPT-84005 Breathing Tx 09:57:16 DRAIN CLEANER PLUMBER CPT-92311 Knee comp 4/> V 11:58:06 DRAIN CLEANER PLUMBER
--- OUTSIDE RECORDS SUMMARY | 2019-11-13 10:23 | XMS REPORT | Clinical Summary ---
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 Fatigue 780.79 Active Silvia Arnold [...] tab daily for 3 days P REDNISONE 74525148503 Active Silvia Arnold APRN Active SYMBICORT 160-4.5 MCG/ACT AERO 2 puffs BID BUDESONIDE-FORMOTEROL FUMARATE 11519024805 Active Silvia Arnold APRN Active ALBUTEROL SULFATE 0.083 % NEBU SOLN one vial per nebul izer every 4-6 hours as needed ALBUTEROL SULFATE 91753936817 Active Silvia Arnold APRN Active NEBULIZER MISC use as directed NEBULIZERS 58341158082 Active Silvia Arnold APRN Active AZITHROMYCIN 250 MG ORAL TABS Take 2 tabs po today then 1 ta b po daily AZITHROMYCIN 96632098326 No Longer Active Silvia gavin APRN Active AUGMENTIN 875-125 MG TAB 1 po BID x 10 days AMOXICILLIN- POT CLAVULANATE 45436375575 No Longer Active Adriana Bender LPN Active TESSALON PERLES 100 MG CAP 1 tablet by mouth 3 times daily BENZONATATE 79817268443 Active Silvia Arnold APRN Active CHEWABLE CALCIUM 500-200-40 MG-UNT-MCG ORAL CHEW 1 chew tab bid 201 11/03/03 CALCIUM-VITAMIN D-VITAMIN K 73084651460 Active Silvia Arnold APRN Active EQ COMPLETE MULTIVIT ADULT 50+ ORAL TABS 1 tab po bid MULTIPLE VITAMINS-MINERALS 77966690556 Active Silvia Arnold APRN Act jairo HYDROCODONE-ACETAMINOPHEN 7.5-325 MG TABS TAKE ONE TAB EVERY 6 HOURS BY MOUTH NEEDED FOR PAIN HYDROCODONE-ACETAMINOPHEN 59870066673 Acti ve Bertrand Patel DO Active LORTAB 7.5-500 MG TABS take one po Q6 hours HYDROCODONE-ACETAMINOPHEN No Longer Active Nirmal Robbins RN Active [facility] MELATONIN 5-10 MG CR-TABS Take one by mouth daily at bedtime MELATONIN-PYRIDOXINE 13527423490 No Longer Active Bertrand Patel DO Active VITAMIN E 200 UNIT CAPS 1 cap po qd VITAMIN E 316 28124808 No Longer Active Bertrand Patel DO Active B-12 1000 MCG CAPS 1 tab daily CYANOCOBALAMIN 31 128297512 No Longer Active Bertrand Patel DO Active METFORMIN HCL 500 MG TABS 1 bid METFORMIN HCL 18768649455 No Longer Active Bertrand Patel DO Active FUROSEMIDE 20 MG TABS 1 pill by mouth daily if needed for edema FUROSEMIDE 71455800358 No Longer Active Bertrand Patel DO Act jairo PRAVASTATIN SODIUM 20 MG TABS 1 tablet by mouth daily at bedtime PRAVASTATIN SODIUM 73655835040 No Longer Active Bertrand Patel DO Active AUGMENTIN 875-125 MG TABS 1 pill by mouth twice daily AMOXICILLIN-POT CLAVULANATE 83966869069 No Longer Active Yoli Mercado MD PhD Active LEVAQUIN 500 MG TABS 1 pill by mouth daily LEVO FLOXACIN 52382318425 No Longer Active Yoli Mercado MD PhD Active CYCLOBENZAPRINE HCL 10 MG TABS Take 1 tab TID PRN for muscle pain CYCLOBENZAPRINE HCL 00688410914 Active Brittni Randall HYPERBARIC TECH Active AMLODIPINE BESYLATE 5 MG TABS 1 tablet by mouth daily for bl ood pressure AMLODIPINE BESYLATE 52325629564 Active Nitza Dorman PT,RMA Active MICARDIS 80 MG TABS 1 tablet daily for blood pressure TELMISARTAN 14501033372 Active Nitza Mullins RPT,RMA Active MICARDIS HCT 80-12.5 MG TABS 1 qd TELMISARTA N-HCTZ 80178021248 No Longer Active Bertrand Patel DO Active CINNAMON ALPHA LIPOIC AC CMPLX CAPS by mouth twice a d ay in AM by mouth twice a day in PM ALPHA LIPOIC FUSH-FY-RGBZSFRP CAPS 313601 97959 No Longer Active Bertrand Patel DO Active AZITHROMYCIN 500 MG SOLR 1 po q day AZITHROMYCI N 33787183342 No Longer Active Bertrand Patel DO Active CYMBALTA 30 MG CPEP 1 cap by mouth daily DULOXE CATHI HCL 59205310619 No Longer Active Bertrand Patel DO Active CYMBALTA 60 MG CPEP 1 cap by mouth daily DULOXE CATHI HCL 53506848969 Active Nitza Mulilns RPT,RMA Active WELLBUTRIN 75 MG TABS 2 times daily BUPROPION H CL 52726636195 No Longer Active Bertrand Patel DO Active PROAIR HFA 108 (90 BASE) MCG/ACT AERS take one to two puffs po Q4-6 hour prn cough and shortness of breath ALBUTEROL SULFATE 7291300975 2 Active Silvia Arnold MANAGER PROTEIN Active AZITHROMYCIN 250 MG TABS take 2 po today then take 1 po days 2-5 AZITHROMYCIN 61836145074 No Longer Active Adolfo OSORIO Active PERMETHRIN 5 % CREA apply neck to toes tonight a nd then rinse off in morning. repeat at 7 days PERMETHRIN 64155637514 No Longer Active Adolfo OSORIO Active AMOXICILLIN 500 MG CAPS 2 po BID x 10 days AMOX ICILLIN 40331075251 No Longer Active Yoli Mercado MD PhD Active ALPRAZOLAM 0.5 MG TAB 1 tab by mouth tid ALPRAZOL AM 06282228274 Active Bertrand Patel DO Active INSUPEN ULTRAFIN 31G X 6 MM MISC USE DIRECTED 03/04 INSULIN PEN NEEDLE 94945322865 No Longer Active Bertrand Patel DO Active TRANSDERM-SCOP 1.5 MG PT72 1 patch applied behind ear q 3 day 20 04/13/28 SCOPOLAMINE BASE 51097228471 No Longer Active Bertrand Patel DO Active MACRODANTIN 100 MG CAPS one p.o. b.i.d. x2 weeks 03/04 NITROFURANTOIN MACROCRYSTAL 68464527548 No Longer Active Bertrand Patel DO Active MACRODANTIN 100 MG CAPS one p.o. b.i.d. x2 weeks 03/04 MACRODANTIN 100 MG CAPS 4586682 NITROFURANTOIN MACROCRYSTAL Inactive TRANSDERM-SCOP 1.5 MG PT72 [...] at 7 days PERMETHRIN 5 % CREA 523868 PERMETHRIN Inactive WELLBUTRIN 75 MG TABS 2 times daily WELLBUTRIN 75 MG TABS 178316 BUPROPION HCL Inactive CYMBALTA 30 MG CPEP 1 cap by mouth daily CYMBALTA 30 MG CPEP 361163 DULOXETINE HCL Inactive AZITHROMYCIN 500 MG SOLR 1 po q day ALTA THROMYCIN 500 MG SOLR 07637491240 AZITHROMYCIN Inactive CINNAMON ALPHA LIPOIC AC CMPLX CAPS by mouth twice a d ay in AM by mouth twice a day in PM CINNAMON ALPHA LIPOIC AC CMPLX CAPS ALPHA LIPOIC YOCP-OT-EDAOULDI CAPS Inactive MICARDIS HCT 80-12.5 MG TABS 1 qd MICARDI S HCT 80-12.5 MG TABS 546558 TELMISARTAN-HCTZ Inactive PRAVASTATIN SODIUM 20 MG TABS 1 tablet by mouth daily at bedtime PRAVASTATIN SODIUM 20 MG TABS 325389 PRAVASTATIN SODIUM Inactive FUROSEMIDE 20 MG TABS 1 pill by mouth daily if needed for edema FUROSEMIDE 20 MG TABS 333914 FUROSEMIDE Inactive METFORMIN HCL 500 MG TABS 1 bid METFORMIN HCL 500 MG TABS 339501 METFORMIN HCL Inactive B-12 1000 MCG CAPS 1 tab daily B-12 1000 MCG CAP S CYANOCOBALAMIN Inactive VITAMIN E 200 UNIT CAPS 1 cap po qd VITAMIN E 2 00 UNIT CAPS 2436480 VITAMIN E Inactive [facility] MELATONIN 5-10 MG CR-TABS Take one by mouth daily at bedtime [facility] MELATONIN 5-10 MG CR-TABS MELATONIN-PYRIDOXI NE Inactive LORTAB 7.5-500 MG TABS take one po Q6 hours LORTAB 7.5-500 MG TABS HYDROCODONE-ACETAMINOPHEN Inactive AZITHROMYCIN 250 MG ORAL TABS Take 2 tabs po today then 1 ta b po daily AZITHROMYCIN 250 MG ORAL TABS 6340598 AZITHROMYCI N Inactive AMOXICILLIN 500 MG CAPS 2 po BID x 10 days AMOXICILLIN 500 MG CAPS 064640 AMOXICILLIN Inactive AZITHROMYCIN 250 MG TABS take 2 po today then take 1 po days 2-5 AZITHROMYCIN 250 MG TABS 3662277 AZITHROMYCIN Inactiv e LEVAQUIN 500 MG TABS 1 pill by mouth daily LEVAQUIN 500 MG TABS 817866 LEVOFLOXACIN Inactive AUGMENTIN 875-125 MG TABS 1 pill by mouth twice daily AUGMENTIN 875-125 MG TABS 169944 AMOXICILLIN-POT CLAVULANATE Inacti ve AUGMENTIN 875-125 MG TAB 1 po BID x 10 days AUGMENTIN 875- 125 MG TAB 939282 AMOXICILLIN-POT CLAVULANATE Inactive Vital Signs Date Name [...] Negative;Positive Encounters Code Encounter Date Provider Facility CPT-84367 Level 4 Est. Patient 16:02:10 BROADCAST PRODUCER Dangelo [facility] CPT-65659 Level 3 Est. Patient 13:04:54 BROADCAST PRODUCER Dangelo [facility] CPT-87330 Level 3 Est. Patient 12:56:37 CDT Bertrand marquez [facility] CPT-93510 Level 3 Est. Patient 19:12:03 CDT Yoli tolbert MD PhD [facility] CPT-05370 Level 3 Est. Patient 14:36:01 CDT Yoli tolbert MD PhD [facility] CPT-94590 Level 2 Est. Patient 08:00:22 CDT Jcarlos dc MD [facility] CPT-57628 Level 3 Est. Patient 19:06:55 CDT Bertrand marquez [facility] CPT-16003 Level 3 Est. Patient 10:08:23 BROADCAST PRODUCER Bertrand marquez [facility] CPT-12441 Level 3 Est. Patient 16:37:54 BROADCAST PRODUCER Bertrand marquez [facility] CPT-25637 Level 3 Est. Patient 11:31:59 BROADCAST PRODUCER Bertrand marquez [facility] CPT-14441 Level 3 Est. Patient 10:20:08 CDT Gennadot villasenor [facility] CPT-37506 Level 3 Est. Patient 13:45:20 CDT Sanket Pham ina [facility] CPT-59383 Level 3 Est. Patient 12:51:06 CDT Adolfo villasenor [facility] CPT-60523 Level 3 Est. Patient 11:22:51 BROADCAST PRODUCER Yoli tolbert MD PhD [facility] CPT-55661 Level 3 Est. Patient 13:33:19 CDT Bertrand marquez [facility] Procedures Code Procedure Name Date Entry Date Standard Desc ription CPT-J0696 Rocephin 1000 mg (Ceftriaxone) 16:20:30 BROADCAST PRODUCER CPT-36386 Abx/Therapy Injection 16:20:29 BROADCAST PRODUCER CPT-J0696 Rocephin 1gm Inj Solr 15:51:59 BROADCAST PRODUCER CPT-42851 Chest 2V Frontal and Lat 15:20:28 BROADCAST PRODUCER 07/22 CPT-56851 Breathing Tx 14:51:55 BROADCAST PRODUCER CPT-73369 Breathing Tx 09:57:16 BROADCAST PRODUCER CPT-30040 Knee comp 4/> V 11:58:06 BROADCAST PRODUCER
--- OUTSIDE RECORDS SUMMARY | 2019-11-13 10:23 | XMS REPORT | Clinical Summary ---
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 Fatigue 780.79 Active Silvia [...] tablet by mouth twice daily CIPROFLOXACIN HCL 61835765356 No Longer Active Adriana Bender LPN Active AUGMENTIN 875-125 MG TAB 1 po BID x 10 days AMOXICILLIN- POT CLAVULANATE 16342087507 No Longer Active Adriana Bender LPN Active BACTROBAN 2 % CREAM Apply to affected area BID for up to 10 days 20 18/03/27 MUPIROCIN CALCIUM 75314581609 Active Silvia Arnold APRN Act jairo MODAFINIL 200 MG ORAL TABS Take 1/2 tab po in the am and 1/2 tab po at noon MODAFINIL 42911474692 Active Silvia Arnold APRN Active CYCLOBENZAPRINE HCL 10 MG TABS Take 1 tab TID PRN for muscle pain CYCLOBENZAPRINE HCL 11857257402 No Longer Active Bertrand Patel DO Ac tive TESSALON PERLES 100 MG CAP 1 tablet by mouth 3 times daily 07/07 BENZONATATE 46163088202 No Longer Active Bertrand Patel DO Ac tive NEBULIZER MISC use as directed NEBULIZERS 360266 39655 No Longer Active Bertrand Patel DO Active ALBUTEROL SULFATE 0.083 % NEBU SOLN one vial per nebul izer every 4-6 hours as needed ALBUTEROL SULFATE 19945567909 No Longer Active Bertrand Patel DO Active SYMBICORT 160-4.5 MCG/ACT AERO 2 puffs BID BUDESONIDE- FORMOTEROL FUMARATE 50816723938 No Longer Active Bertrand Patel DO Ac tive PREDNISONE 20 MG TAB take 3 tabs daily for 3 days , 2 tabs daily for 3 days, 1 tab daily for 3 days, 1/2 tab daily for 3 days P REDNISONE 24939691956 No Longer Active Silvia Arnold APRN Active AZITHROMYCIN 250 MG ORAL TABS Take 2 tabs po today then 1 ta b po daily AZITHROMYCIN 88524380288 No Longer Active Silvia gavin APRN Active AUGMENTIN 875-125 MG TAB 1 po BID x 10 days AMOXICILLIN- POT CLAVULANATE 67461546859 No Longer Active Adriana Bender LPN Active CHEWABLE CALCIUM 500-200-40 MG-UNT-MCG ORAL CHEW 1 chew tab bid 201 11/03/03 CALCIUM-VITAMIN D-VITAMIN K 29439378984 Active Silvia Arnold APRN Active EQ COMPLETE MULTIVIT ADULT 50+ ORAL TABS 1 tab po bid MULTIPLE VITAMINS-MINERALS 18859760545 Active Silvia Arnold APRN Act jairo HYDROCODONE-ACETAMINOPHEN 7.5-325 MG TABS TAKE ONE TAB EVERY 6 HOURS BY MOUTH NEEDED FOR PAIN HYDROCODONE-ACETAMINOPHEN 69759799553 Acti ve Lizy العلي Active LORTAB 7.5-500 MG TABS take one po Q6 hours HYDROCODONE-ACETAMINOPHEN No Longer Active Nirmal Robbins RN Active [facility] MELATONIN 5-10 MG CR-TABS Take one by mouth daily at bedtime MELATONIN-PYRIDOXINE 81847187728 No Longer Active Bertrand Patel DO Active VITAMIN E 200 UNIT CAPS 1 cap po qd VITAMIN E 316 17848887 No Longer Active Bertrand Patel DO Active B-12 1000 MCG CAPS 1 tab daily CYANOCOBALAMIN 31 989797649 No Longer Active Bertrand Patel DO Active METFORMIN HCL 500 MG TABS 1 bid METFORMIN HCL 73485706143 No Longer Active Bertrand Patel DO Active FUROSEMIDE 20 MG TABS 1 pill by mouth daily if needed for edema FUROSEMIDE 53190391010 No Longer Active Bertrand Patel DO Act jairo PRAVASTATIN SODIUM 20 MG TABS 1 tablet by mouth daily at bedtime PRAVASTATIN SODIUM 53393082537 No Longer Active Bertrand Patel DO Active AUGMENTIN 875-125 MG TABS 1 pill by mouth twice daily AMOXICILLIN-POT CLAVULANATE 09661899159 No Longer Active Yoli Mercado MD PhD Active LEVAQUIN 500 MG TABS 1 pill by mouth daily LEVO FLOXACIN 63753416313 No Longer Active Yoli Mercado MD PhD Active AMLODIPINE BESYLATE 5 MG TABS 1 tablet by mouth daily for bl ood pressure AMLODIPINE BESYLATE 36594439745 Active Keysha Jones MA Active MICARDIS 80 MG TABS 1 tablet daily for blood pressure TELMISARTAN 76678729868 Active Keysha Jones MA Active MICARDIS HCT 80-12.5 MG TABS 1 qd TELMISARTA N-HCTZ 81027614263 No Longer Active Bertrand Patel DO Active CINNAMON ALPHA LIPOIC AC CMPLX CAPS by mouth twice a d ay in AM by mouth twice a day in PM ALPHA LIPOIC [id number] CAPS 558736 44413 No Longer Active Bertrand Patel DO Active AZITHROMYCIN 500 MG SOLR 1 po q day AZITHROMYCI N 62618197600 No Longer Active Bertrand Patel DO Active CYMBALTA 30 MG CPEP 1 cap by mouth daily DULOXE CATHI HCL 51505860595 No Longer Active Bertrand Patel DO Active CYMBALTA 60 MG CPEP 1 cap by mouth daily DULOXE CATHI HCL 19561800194 Active Keysha Jones MA Active WELLBUTRIN 75 MG TABS 2 times daily BUPROPION H CL 10872612002 No Longer Active Bertrand Patel DO Active PROAIR HFA 108 (90 BASE) MCG/ACT AERS take one to two puffs po Q4-6 hour prn cough and shortness of breath ALBUTEROL SULFATE 3289974301 2 Active Silvia Arnold 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 repeat at 7 days PERMETHRIN 79644991594 No Longer Active Adolfo OSORIO Active AMOXICILLIN 500 MG CAPS 2 po BID x 10 days AMOX ICILLIN 40471902248 No Longer Active Yoli Mercado MD PhD Active ALPRAZOLAM 0.5 MG TAB 1 tab by mouth tid ALPRAZOL AM 42084855668 Active Nitza Mullins RPT,RMA Active INSUPEN ULTRAFIN 31G X 6 MM MISC USE DIRECTED 03/04 INSULIN PEN NEEDLE 63964231413 No Longer Active Bertrand Patel DO Active TRANSDERM-SCOP 1.5 MG PT72 1 patch applied behind ear q 3 day 20 04/13/28 SCOPOLAMINE BASE 20352014917 No Longer Active Bertrand Patel DO Active MACRODANTIN 100 MG CAPS one p.o. b.i.d. x2 weeks 03/04 NITROFURANTOIN MACROCRYSTAL 60729982405 No Longer Active Bertrand Patel DO Active MACRODANTIN 100 MG CAPS one p.o. b.i.d. x2 weeks 03/04 MACRODANTIN 100 MG CAPS 6799187 NITROFURANTOIN MACROCRYSTAL Inactive TRANSDERM-SCOP 1.5 MG PT72 [...] at 7 days PERMETHRIN 5 % CREA 429815 PERMETHRIN Inactive WELLBUTRIN 75 MG TABS 2 times daily WELLBUTRIN 75 MG TABS BUPROPION HCL Inactive CYMBALTA 30 MG CPEP 1 cap by mouth daily CYMBALTA 30 MG CPEP 907229 DULOXETINE HCL Inactive AZITHROMYCIN 500 MG SOLR 1 po q day ALTA THROMYCIN 500 MG SOLR 04062919017 AZITHROMYCIN Inactive CINNAMON ALPHA LIPOIC AC CMPLX CAPS by mouth twice a d ay in AM by mouth twice a day in PM CINNAMON ALPHA LIPOIC AC CMPLX CAPS ALPHA LIPOIC [id number] CAPS Inactive MICARDIS HCT 80-12.5 MG TABS 1 qd MICARDI S HCT 80-12.5 MG TABS 685852 TELMISARTAN-HCTZ Inactive PRAVASTATIN SODIUM 20 MG TABS 1 tablet by mouth daily at bedtime PRAVASTATIN SODIUM 20 MG TABS 673649 PRAVASTATIN SODIUM Inactive FUROSEMIDE 20 MG TABS 1 pill by mouth daily if needed for edema FUROSEMIDE 20 MG TABS 023366 FUROSEMIDE Inactive METFORMIN HCL 500 MG TABS 1 bid METFORMIN HCL 500 MG TABS 567887 METFORMIN HCL Inactive B-12 1000 MCG CAPS 1 tab daily B-12 1000 MCG CAP S CYANOCOBALAMIN Inactive VITAMIN E 200 UNIT CAPS 1 cap po qd VITAMIN E 2 00 UNIT CAPS 8036390 VITAMIN E Inactive [facility] MELATONIN 5-10 MG CR-TABS Take one by mouth daily at bedtime [facility] MELATONIN 5-10 MG CR-TABS MELATONIN-PYRIDOXI NE Inactive LORTAB 7.5-500 MG TABS take one po Q6 hours LORTAB 7.5-500 MG TABS HYDROCODONE-ACETAMINOPHEN Inactive AZITHROMYCIN 250 MG ORAL TABS Take 2 tabs po today then 1 ta b po daily AZITHROMYCIN 250 MG ORAL TABS 6375683 AZITHROMYCI N Inactive SYMBICORT 160-4.5 MCG/ACT AERO 2 puffs BID SYMBICORT 160- 4.5 MCG/ACT AERO BUDESONIDE-FORMOTEROL FUMARATE Inactive ALBUTEROL SULFATE 0.083 % NEBU SOLN one vial per nebul izer every 4-6 hours as needed ALBUTEROL SULFATE 0.083 % NEBU SOLN 59121 8 ALBUTEROL SULFATE Inactive NEBULIZER MISC use as directed NEBULIZER MISC NEBULIZERS Inactive TESSALON PERLES 100 MG CAP 1 tablet by mouth 3 times daily 07/07 TESSALON PERLES 100 MG CAP 670669 BENZONATATE Inact jairo CYCLOBENZAPRINE HCL 10 MG TABS Take 1 tab TID PRN for muscle pain CYCLOBENZAPRINE HCL 10 MG TABS 900614 CYCLOBENZAPRINE HCL Inactive AUGMENTIN 875-125 MG TAB 1 po BID x 10 days AUGMENTIN 875- 125 MG TAB 504251 AMOXICILLIN-POT CLAVULANATE Inactive AMOXICILLIN 500 MG CAPS 2 po BID x 10 days AMOXICILLIN 500 MG CAPS 284456 AMOXICILLIN Inactive AZITHROMYCIN 250 MG TABS take 2 po today then take 1 po days 2-5 AZITHROMYCIN 250 MG TABS 1911033 AZITHROMYCIN Inactiv e LEVAQUIN 500 MG TABS 1 pill by mouth daily LEVAQUIN 500 MG TABS 922749 LEVOFLOXACIN Inactive AUGMENTIN 875-125 MG TABS 1 pill by mouth twice daily AUGMENTIN 875-125 MG TABS 113796 AMOXICILLIN-POT CLAVULANATE Inacti ve AUGMENTIN 875-125 MG TAB 1 po BID x 10 days AUGMENTIN 875- 125 MG TAB 967759 AMOXICILLIN-POT CLAVULANATE Inactive PREDNISONE 20 MG TAB take 3 tabs daily for 3 days , 2 tabs daily for 3 days, 1 tab daily for 3 days, 1/2 tab daily for 3 days PREDNISONE 20 MG TAB 551924 PREDNISONE Inactive CIPRO 500 MG TAB 1 tablet by mouth twice daily CIPRO 500 MG TAB 811892 CIPROFLOXACIN HCL Inactive Vital Signs Date Name [...] 5.8 % 4.3-6.0 cholesterol, serum 200 mg/dL 911-333 0421/07/22 triglyceride, serum, fasting 56 mg/dL 30-200 HDL cholesterol, serum 80 mg/dL 32-96 LDL cholesterol, serum 109 mg/dL 0-130 albumin/creatinine ratio, urine < 30 mg/g mg/g{creat} 0-2 9 TSH 1.16 m[iU]/mL 0.36-3.74 sodium, serum 142 mmol/L 628-275 4532/07/22 carbon dioxide, venous blood 33.1 mmol/L 21.0-32 [...] Negative;Positive Encounters Code Encounter Date Provider Facility CPT-30117 Level 3 Est. Patient 08:50:57 ABLE BODIED TANKERMAN Silvia And dmitriy [facility] CPT-28947 Level 3 Est. Patient 10:04:13 CDT Bertrand marquez [facility] CPT-78411 Level 4 Est. Patient 16:02:10 ABLE BODIED TANKERMAN Silvia And dmitriy [facility] CPT-83549 Level 3 Est. Patient 13:04:54 ABLE BODIED TANKERMAN Dangelo [facility] CPT-34437 Level 3 Est. Patient 12:56:37 CDT Bertrand marquez [facility] CPT-54365 Level 3 Est. Patient 19:12:03 CDT Yoli tolbert MD PhD [facility] CPT-18488 Level 3 Est. Patient 14:36:01 CDT Yoli tolbert MD PhD [facility] CPT-41113 Level 2 Est. Patient 08:00:22 CDT Jcarlos dc MD [facility] CPT-27189 Level 3 Est. Patient 19:06:55 CDT Bertrand marquez [facility] CPT-89062 Level 3 Est. Patient 10:08:23 ABLE BODIED TANKERMAN Bertrand marquez [facility] CPT-45558 Level 3 Est. Patient 16:37:54 ABLE BODIED TANKERMAN Bertrand marquez [facility] CPT-27217 Level 3 Est. Patient 11:31:59 ABLE BODIED TANKERMAN Bertrand marquez [facility] CPT-52320 Level 3 Est. Patient 10:20:08 CDT Adolfo villasenor [facility] CPT-21360 Level 3 Est. Patient 13:45:20 CDT Sanket buckley [facility] CPT-01927 Level 3 Est. Patient 12:51:06 CDT Adolfo villasenor [facility] CPT-03774 Level 3 Est. Patient 11:22:51 ABLE BODIED TANKERMAN Yoli tolbert MD [facility] CPT-39796 Level 3 Est. Patient 13:33:19 CDT Bertrand marquez [facility] Procedures Code Procedure Name Date Entry Date Standard Desc ription CPT-86466 Wound Culture - LAB USE ONLY 15:45:25 CDT 2 CPT-10519 Venipuncture Draw Fee 10:23:01 CDT CPT-J0696 Rocephin 1000 mg (Ceftriaxone) 16:20:30 ABLE BODIED TANKERMAN CPT-28035 Abx/Therapy Injection 16:20:29 ABLE BODIED TANKERMAN CPT-J0696 Rocephin 1gm Inj Solr 15:51:59 ABLE BODIED TANKERMAN CPT-99438 Chest 2V Frontal and Lat 15:20:28 ABLE BODIED TANKERMAN 07/22 CPT-09807 Breathing Tx 14:51:55 ABLE BODIED TANKERMAN CPT-13897 Breathing Tx 09:57:16 ABLE BODIED TANKERMAN CPT-00564 Knee comp 4/> V 11:58:06 ABLE BODIED TANKERMAN
--- OUTSIDE RECORDS SUMMARY | 2019-11-13 10:23 | XMS REPORT | Clinical Summary ---
Author Author Admin, Enrique Adamson Organization [employer] Address Unknown Phone Unavailable Allergies, Adverse Reactions, [...] day as needed for c ough BENZONATATE 40208212420 Active Ike Deluna MD Acti ve ZITHROMAX Z-MARTIN 250 MG TABS 2 today and then 1 daily for 4 days 201 12/01/06 AZITHROMYCIN 01179916362 Active Ike Deluna MD Active ADDERALL 10 MG ORAL TABS 1 tab twice daily AMPHETAMINE-DEXTROAMPHETAMINE 47125747514 Active Ike Deluna MD Active BACTROBAN 2 % CREAM Apply to affected area BID for up to 10 days MUPIROCIN CALCIUM 63892646097 No Longer Active Ike Deluna MD Active CIPRO 500 MG TAB 1 tablet by mouth twice daily CIPROFLOXACIN HCL 93321074415 No Longer Active Adriana Bender LPN Active AUGMENTIN 875-125 MG TAB 1 po BID x 10 days AMOXICILLIN- POT CLAVULANATE 26390742308 No Longer Active Adriana Bender LPN Active MODAFINIL 200 MG ORAL TABS Take 1/2 tab po in the am and 1/2 tab po at noon MODAFINIL 77360479189 Active Darlyn vega CYCLOBENZAPRINE HCL 10 MG TABS Take 1 tab TID PRN for muscle pain CYCLOBENZAPRINE HCL 14335456481 No Longer Active Bertrand Patel DO Ac tive TESSALON PERLES 100 MG CAP 1 tablet by mouth 3 times daily 07/07 BENZONATATE 65745339742 No Longer Active Bertrand Patel DO Ac tive NEBULIZER MISC use as directed NEBULIZERS 381527 32028 No Longer Active Bertrand Patel DO Active ALBUTEROL SULFATE 0.083 % NEBU SOLKelvin one vial per nebul izer every 4-6 hours as needed ALBUTEROL SULFATE 43648579405 No Longer Active Bertrand Patel DO Active SYMBICORT 160-4.5 MCG/ACT AERO 2 puffs BID BUDESONIDE- FORMOTEROL FUMARATE 97495735226 No Longer Active Bertrand Patel DO Ac tive PREDNISONE 20 MG TAB take 3 tabs daily for 3 days , 2 tabs daily for 3 days, 1 tab daily for 3 days, 1/2 tab daily for 3 days P REDNISONE 17352377346 No Longer Active Silvia Arnold APRN Active AZITHROMYCIN 250 MG ORAL TABS Take 2 tabs po today then 1 ta b po daily AZITHROMYCIN 09051414404 No Longer Active Silvia gavin SOFTWARE SALES 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 Active AUGMENTIN 875-125 MG TAB 1 po BID x 10 days AMOXICILLIN- POT CLAVULANATE 19007623236 No Longer Active Adriana Bender LPN Active CHEWABLE CALCIUM 500-200-40 MG-UNT-MCG ORAL CHEW 1 chew tab bid 201 11/03/03 CALCIUM-VITAMIN D-VITAMIN K 90745485933 Active Silvia Arnold APRN Active EQ COMPLETE MULTIVIT ADULT 50+ ORAL TABS 1 tab po bid MULTIPLE VITAMINS-MINERALS 16087266339 Active Silvia Arnold APRN Act jairo HYDROCODONE-ACETAMINOPHEN 7.5-325 MG TABS TAKE ONE TAB EVERY 6 HOURS BY MOUTH NEEDED FOR PAIN HYDROCODONE-ACETAMINOPHEN 64017878208 Acti raheel Mcmullen Active LORTAB 7.5-500 MG TABS take one po Q6 hours HYDROCODONE-ACETAMINOPHEN No Longer Active Nirmal Robbins RN Active [facility] MELATONIN 5-10 MG CR-TABS Take one by mouth daily at bedtime MELATONIN-PYRIDOXINE 48843411672 No Longer Active Bertrand Patel DO Active VITAMIN E 200 UNIT CAPS 1 cap po qd VITAMIN E 316 93688861 No Longer Active Bertrand Patel DO Active B-12 1000 MCG CAPS 1 tab daily CYANOCOBALAMIN 31 163140818 No Longer Active Bertrand Patel DO Active METFORMIN HCL 500 MG TABS 1 bid METFORMIN HCL 73818935756 No Longer Active Bertrand Patel DO Active FUROSEMIDE 20 MG TABS 1 pill by mouth daily if needed for edema FUROSEMIDE 32449507909 No Longer Active Bertrand Patel DO Act jairo PRAVASTATIN SODIUM 20 MG TABS 1 tablet by mouth daily at bedtime PRAVASTATIN SODIUM 48324975951 No Longer Active Bertrand Patel DO Active AUGMENTIN 875-125 MG TABS 1 pill by mouth twice daily AMOXICILLIN-POT CLAVULANATE 11879256552 No Longer Active Yoli Mercado MD PhD Active LEVAQUIN 500 MG TABS 1 pill by mouth daily LEVO FLOXACIN 27883402092 No Longer Active Yoli Mercado MD PhD Active AMLODIPINE BESYLATE 5 MG TABS 1 tablet by mouth daily for bl ood pressure AMLODIPINE BESYLATE 41122468585 Active Darlyn Mckinnonmerman Active MICARDIS 80 MG TABS 1 tablet daily for blood pressure TELMISARTAN 32433914870 Active Darlyn Nicolás Active MICARDIS HCT 80-12.5 MG TABS 1 qd TELMISARTA N-HCTZ 01528218381 No Longer Active Bertrand Patel DO Active CINNAMON ALPHA LIPOIC AC CMPLX CAPS by mouth twice a d ay in AM by mouth twice a day in PM ALPHA LIPOIC [id number] CAPS 369440 62057 No Longer Active Bertrand Patel DO Active AZITHROMYCIN 500 MG SOLR 1 po q day AZITHROMYCI N 95566530273 No Longer Active Bertrand Patel DO Active CYMBALTA 30 MG CPEP 1 cap by mouth daily DULOXE CATHI HCL 38979045348 No Longer Active Bertrand Patel DO Active CYMBALTA 60 MG CPEP 1 cap by mouth daily DULOXE CATHI HCL 13339181504 Active Keysha Jones MA Active WELLBUTRIN 75 MG TABS 2 times daily BUPROPION H CL 77425326557 No Longer Active Bertrand Patel DO Active PROAIR HFA 108 (90 BASE) MCG/ACT AERS take one to two puffs po Q4-6 hour prn cough and shortness of breath ALBUTEROL SULFATE 8211722086 2 Active Silvia Arnold APRN Active AZITHROMYCIN 250 MG TABS take 2 po today then take 1 po days 2-5 AZITHROMYCIN 27294274810 No Longer Active Adolfo OSORIO Active PERMETHRIN 5 % CREA apply neck to toes tonight a nd then rinse off in morning. repeat at 7 days PERMETHRIN 10778299620 No Longer Active Adolfo OSORIO Active AMOXICILLIN 500 MG CAPS 2 po BID x 10 days AMOX ICILLIN 31363311330 No Longer Active Yoli Mercado MD PhD Active ALPRAZOLAM 0.5 MG TAB 1 tab by mouth tid ALPRAZOL AM 55441913796 Active Nitza Mullins RPT,RMA Active INSUPEN ULTRAFIN 31G X 6 MM MISC USE DIRECTED 03/04 INSULIN PEN NEEDLE 87444493171 No Longer Active Bertrand Patel DO Active TRANSDERM-SCOP 1.5 MG PT72 1 patch applied behind ear q 3 day 20 04/13/28 SCOPOLAMINE BASE 45372330673 No Longer Active Bertrand Patel DO Active MACRODANTIN 100 MG CAPS one p.o. b.i.d. x2 weeks 03/04 NITROFURANTOIN MACROCRYSTAL 94299595039 No Longer Active Bertrand Patel DO Active MACRODANTIN 100 MG CAPS one p.o. b.i.d. x2 weeks 03/04 MACRODANTIN 100 MG CAPS 7391696 NITROFURANTOIN MACROCRYSTAL Inactive TRANSDERM-SCOP 1.5 MG PT72 [...] at 7 days PERMETHRIN 5 % CREA 571038 PERMETHRIN Inactive WELLBUTRIN 75 MG TABS 2 times daily WELLBUTRIN 75 MG TABS BUPROPION HCL Inactive CYMBALTA 30 MG CPEP 1 cap by mouth daily CYMBALTA 30 MG CPEP 457613 DULOXETINE HCL Inactive AZITHROMYCIN 500 MG SOLR 1 po q day ALTA THROMYCIN 500 MG SOLR 87226025830 AZITHROMYCIN Inactive CINNAMON ALPHA LIPOIC AC CMPLX CAPS by mouth twice a d ay in AM by mouth twice a day in PM CINNAMON ALPHA LIPOIC AC CMPLX CAPS ALPHA LIPOIC GADK-DO-DUTDXOXC CAPS Inactive MICARDIS HCT 80-12.5 MG TABS 1 qd MICARDI S HCT 80-12.5 MG TABS 713423 TELMISARTAN-HCTZ Inactive PRAVASTATIN SODIUM 20 MG TABS 1 tablet by mouth daily at bedtime PRAVASTATIN SODIUM 20 MG TABS 578396 PRAVASTATIN SODIUM Inactive FUROSEMIDE 20 MG TABS 1 pill by mouth daily if needed for edema FUROSEMIDE 20 MG TABS 830072 FUROSEMIDE Inactive METFORMIN HCL 500 MG TABS 1 bid METFORMIN HCL 500 MG TABS 242482 METFORMIN HCL Inactive B-12 1000 MCG CAPS 1 tab daily B-12 1000 MCG CAP S CYANOCOBALAMIN Inactive VITAMIN E 200 UNIT CAPS 1 cap po qd VITAMIN E 2 00 UNIT CAPS 8846642 VITAMIN E Inactive [facility] MELATONIN 5-10 MG CR-TABS Take one by mouth daily at bedtime [facility] MELATONIN 5-10 MG CR-TABS MELATONIN-PYRIDOXI NE Inactive LORTAB 7.5-500 MG TABS take one po Q6 hours LORTAB 7.5-500 MG TABS HYDROCODONE-ACETAMINOPHEN Inactive AZITHROMYCIN 250 MG ORAL TABS Take 2 tabs po today then 1 ta b po daily AZITHROMYCIN 250 MG ORAL TABS 4921414 AZITHROMYCI N Inactive SYMBICORT 160-4.5 MCG/ACT AERO 2 puffs BID SYMBICORT 160- 4.5 MCG/ACT AERO BUDESONIDE-FORMOTEROL FUMARATE Inactive ALBUTEROL SULFATE 0.083 % NEBU SOLN one vial per nebul izer every 4-6 hours as needed ALBUTEROL SULFATE 0.083 % NEBU SOLN 47052 8 ALBUTEROL SULFATE Inactive NEBULIZER MISC use as directed NEBULIZER MISC NEBULIZERS Inactive TESSALON PERLES 100 MG CAP 1 tablet by mouth 3 times daily 07/07 TESSALON PERLES 100 MG CAP 865205 BENZONATATE Inact jairo CYCLOBENZAPRINE HCL 10 MG TABS Take 1 tab TID PRN for muscle pain CYCLOBENZAPRINE HCL 10 MG TABS 934511 CYCLOBENZAPRINE HCL Inactive AUGMENTIN 875-125 MG TAB 1 po BID x 10 days AUGMENTIN 875- 125 MG TAB 857043 AMOXICILLIN-POT CLAVULANATE Inactive BACTROBAN 2 % CREAM Apply to affected area BID for up to 10 days BACTROBAN 2 % CREAM 015445 MUPIROCIN CALCIUM Inactive AMOXICILLIN 500 MG CAPS 2 po BID x 10 days AMOXICILLIN 500 MG CAPS 921141 AMOXICILLIN Inactive AZITHROMYCIN 250 MG TABS take 2 po today then take 1 po days 2-5 AZITHROMYCIN 250 MG TABS 0273828 AZITHROMYCIN Inactiv e LEVAQUIN 500 MG TABS 1 pill by mouth daily LEVAQUIN 500 MG TABS 289571 LEVOFLOXACIN Inactive AUGMENTIN 875-125 MG TABS 1 pill by mouth twice daily AUGMENTIN 875-125 MG TABS 719541 AMOXICILLIN-POT CLAVULANATE Inacti ve AUGMENTIN 875-125 MG TAB 1 po BID x 10 days AUGMENTIN 875- 125 MG TAB 168183 AMOXICILLIN-POT CLAVULANATE Inactive PREDNISONE 20 MG TAB take 3 tabs daily for 3 days , 2 tabs daily for 3 days, 1 tab daily for 3 days, 1/2 tab daily for 3 days PREDNISONE 20 MG TAB 223651 PREDNISONE Inactive CIPRO 500 MG TAB 1 tablet by mouth twice daily CIPRO 500 MG TAB 234554 CIPROFLOXACIN HCL Inactive Vital Signs Date Name [...] ... - Chemistry sodium, serum 142 mmol/L 261-133 8045/07/22 carbon dioxide, venous blood 33.1 mmol/L 21.0-32 [...] 56 mg/dL 30-200 cholesterol, serum 200 mg/dL 130-166 1294/07/22 hemoglobin A1C, blood, as % of total [...] 0-19 Encounters Code Encounter Date Provider Facility CPT-98352 Level 3 Est. Patient 11:27:00 AIR LIAISON AND SPECIAL STAFF Ike Deluna MD [facility] CPT-10862 Level 3 Est. Patient 08:50:57 [employer] SPECIAL STAFF Dangelo SOFTWARE SALES 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 [facility] CPT-96941 Level 3 Est. Patient 10:04:13 CDT Bertrand marquez [facility] CPT-00244 Level 4 Est. Patient 16:02:10 AIR LIAISON AND SPECIAL STAFF Dangelo [facility] CPT-25695 Level 3 Est. Patient 13:04:54 AIR LIAISON AND SPECIAL STAFF Dangelo [facility] CPT-26121 Level 3 Est. Patient 12:56:37 CDT Bertrand marquez [facility] CPT-18688 Level 3 Est. Patient 19:12:03 CDT Yoli tolbert MD PhD [facility] CPT-05146 Level 3 Est. Patient 14:36:01 CDT Yoli tolbert MD [facility] CPT-80333 Level 2 Est. Patient 08:00:22 CDT Jcarlos dc MD [facility]-97937 Level 3 Est. Patient 19:06:55 CDT Bertrand marquez [facility] CPT-59414 Level 3 Est. Patient 10:08:23 [employer] L[employer]ISON AND SPECIAL STAFF Bertrand marquez [facility] CPT-37953 Level 3 Est. Patient 16:37:54 [employer] LIAISON AND SPECIAL STAFF Bertrand marquez [facility] CPT-30184 Level 3 Est. Patient 11:31:59 [employer] AND SPECIAL STAFF Bertrand marquez [facility] CPT-36732 Level 3 Est. Patient 10:20:08 CDT Demie Ahl jacklyn [facility] CPT-32714 Level 3 Est. Patient 13:45:20 CDT Sanket Garciakelvin buckley [facility] CPT-51029 Level 3 Est. Patient 12:51:06 CDT Adolfo Monroyridge villasenor [facility] CPT-98904 Level 3 Est. Patient 11:22:51 [employer] SPECIAL STAFF Yoli tolbert MD PhD [facility] CPT-21947 Level 3 Est. Patient 13:33:19 CDT Bertrand marquez DO [facility] Procedures Code Procedure Name Date Entry Date Standard Desc ription CPT-38791 Wound Culture - LAB USE ONLY 15:45:25 CDT 2 CPT-32286 Venipuncture Draw Fee 10:23:01 CDT CPT-J0696 Rocephin 1000 mg (Ceftriaxone) 16:20:30 [employer] STAFF CPT-23996 Abx/Therapy Injection 16:20:29 [employer] STAFF CPT-J0696 Rocephin 1gm Inj Solr 15:51:59 [employer] STAFF CPT-34791 Chest 2V Frontal and Lat 15:20:28 [employer] SPECIAL STAFF 07/22 CPT-10616 Breathing Tx 14:51:55 [employer]AFF CPT-33724 Breathing Tx 09:57:16 [employer] STAFF CPT-29508 Knee comp 4/> V 11:58:06 [employer] AND SPECIAL STAFF
--- OUTSIDE RECORDS SUMMARY | 2019-11-13 10:24 | XMS REPORT | Clinical Summary ---
Author Author Admin, Enrique Adamson Organization [employer] Address Unknown Phone Unavailable Allergies, Adverse Reactions, [...] Cough SINUSITIS, ACUTE 461.9 Active Silvia PARISI branch assistant sinusitis, unspecified Fatigue 780.79 Active Silvia Arnold [...] to 10 days 20 18/03/27 MUPIROCIN CALCIUM 57324068368 Active Silvia Arnold APRN Act jairo AUGMENTIN 875-125 MG TAB 1 po BID x 10 days AMOXICILLIN- POT CLAVULANATE 47829096206 Active Silvia Arnold APRN Activ e MODAFINIL 200 MG ORAL TABS Take 1/2 tab po in the am and 1/2 tab po at noon MODAFINIL 78353512175 Active Silvia Arnold APRN Active CYCLOBENZAPRINE HCL 10 MG TABS Take 1 tab TID PRN for muscle pain CYCLOBENZAPRINE HCL 23568486411 No Longer Active Bertrand Patel DO Ac tive TESSALON PERLES 100 MG CAP 1 tablet by mouth 3 times daily 07/07 BENZONATATE 33877845061 No Longer Active Bertrand Patel DO Ac tive NEBULIZER MISC use as directed NEBULIZERS 224160 50605 No Longer Active Bertrand Patel DO Active ALBUTEROL SULFATE 0.083 % NEBU SOLN one vial per nebul izer every 4-6 hours as needed ALBUTEROL SULFATE 03416461535 No Longer Active Bertrand Patel DO Active SYMBICORT 160-4.5 MCG/ACT AERO 2 puffs BID BUDESONIDE- FORMOTEROL FUMARATE 96199152312 No Longer Active Bertrand Patel DO Ac tive PREDNISONE 20 MG TAB take 3 tabs daily for 3 days , 2 tabs daily for 3 days, 1 tab daily for 3 days, 1/2 tab daily for 3 days P REDNISONE 12825950281 No Longer Active Silvia Arnold APRN Active AZITHROMYCIN 250 MG ORAL TABS Take 2 tabs po today then 1 ta b po daily AZITHROMYCIN 35099670907 No Longer Active Silvia gavin APRN Active AUGMENTIN 875-125 MG TAB 1 po BID x 10 days AMOXICILLIN- POT CLAVULANATE 23609373967 No Longer Active Adriana Bender LPN Active CHEWABLE CALCIUM 500-200-40 MG-UNT-MCG ORAL CHEW 1 chew tab bid 201 11/03/03 CALCIUM-VITAMIN D-VITAMIN K 06360430158 Active Silvia Arnold APRN Active EQ COMPLETE MULTIVIT ADULT 50+ ORAL TABS 1 tab po bid MULTIPLE VITAMINS-MINERALS 38623453391 Active Silvia Arnold APRN Act jairo HYDROCODONE-ACETAMINOPHEN 7.5-325 MG TABS TAKE ONE TAB EVERY 6 HOURS BY MOUTH NEEDED FOR PAIN HYDROCODONE-ACETAMINOPHEN 84505967767 Acti raheel العلي Active LORTAB 7.5-500 MG TABS take one po Q6 hours HYDROCODONE-ACETAMINOPHEN No Longer Active Nirmal Robbins RN Active [facility] MELATONIN 5-10 MG CR-TABS Take one by mouth daily at bedtime MELATONIN-PYRIDOXINE 85442695435 No Longer Active Bertrand Patel DO Active VITAMIN E 200 UNIT CAPS 1 cap po qd VITAMIN E 316 36248258 No Longer Active Bertrand Patel DO Active B-12 1000 MCG CAPS 1 tab daily CYANOCOBALAMIN 31 902477482 No Longer Active Bertrand Patel DO Active METFORMIN HCL 500 MG TABS 1 bid METFORMIN HCL 26903799636 No Longer Active Bertrand Patel DO Active FUROSEMIDE 20 MG TABS 1 pill by mouth daily if needed for edema FUROSEMIDE 73365307841 No Longer Active Bertrand Patel DO Act jairo PRAVASTATIN SODIUM 20 MG TABS 1 tablet by mouth daily at bedtime PRAVASTATIN SODIUM 53863625361 No Longer Active Bertrand Patel DO Active AUGMENTIN 875-125 MG TABS 1 pill by mouth twice daily AMOXICILLIN-POT CLAVULANATE 48749248375 No Longer Active Yoli Mercado MD PhD Active LEVAQUIN 500 MG TABS 1 pill by mouth daily LEVO FLOXACIN 92013666601 No Longer Active Yoli Mercado MD PhD Active AMLODIPINE BESYLATE 5 MG TABS 1 tablet by mouth daily for bl ood pressure AMLODIPINE BESYLATE 19349027201 Active Keysha Jones MA Active MICARDIS 80 MG TABS 1 tablet daily for blood pressure TELMISARTAN 20802050299 Active Keysha Jones MA Active MICARDIS HCT 80-12.5 MG TABS 1 qd TELMISARTA N-HCTZ 21560302374 No Longer Active Bertrand Patel DO Active CINNAMON ALPHA LIPOIC AC CMPLX CAPS by mouth twice a d ay in AM by mouth twice a day in PM ALPHA LIPOIC [id number] CAPS 733427 11031 No Longer Active Bertrand Patel DO Active AZITHROMYCIN 500 MG SOLR 1 po q day AZITHROMYCI N 45008008150 No Longer Active Bertrand Patel DO Active CYMBALTA 30 MG CPEP 1 cap by mouth daily DULOXE CATHI HCL 60379697108 No Longer Active Bertrand Patel DO Active CYMBALTA 60 MG CPEP 1 cap by mouth daily DULOXE CATHI HCL 84294333049 Active Keysha Jones MA Active WELLBUTRIN 75 MG TABS 2 times daily BUPROPION H CL 43940867393 No Longer Active Bertrand Patel DO Active PROAIR HFA 108 (90 BASE) MCG/ACT AERS take one to two puffs po Q4-6 hour prn cough and shortness of breath ALBUTEROL SULFATE 3405707772 2 Active Silvia 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 repeat at 7 days PERMETHRIN 28928724766 No Longer Active Adolfo OSORIO Active AMOXICILLIN 500 MG CAPS 2 po BID x 10 days AMOX ICILLIN 19170256011 No Longer Active Yoli Mercado MD PhD Active ALPRAZOLAM 0.5 MG TAB 1 tab by mouth tid ALPRAZOL AM 10233833344 Active Nitza Mullins RPT,RMA Active INSUPEN ULTRAFIN 31G X 6 MM MISC USE DIRECTED 03/04 INSULIN PEN NEEDLE 84714585563 No Longer Active Bertrand Patel DO Active TRANSDERM-SCOP 1.5 MG PT72 1 patch applied behind ear q 3 day 20 04/13/28 SCOPOLAMINE BASE 17008752523 No Longer Active Bertrand Patel DO Active MACRODANTIN 100 MG CAPS one p.o. b.i.d. x2 weeks 03/04 NITROFURANTOIN MACROCRYSTAL 33682206572 No Longer Active Bertrand Patel DO Active MACRODANTIN 100 MG CAPS one p.o. b.i.d. x2 weeks 03/04 MACRODANTIN 100 MG CAPS 7823366 NITROFURANTOIN MACROCRYSTAL Inactive TRANSDERM-SCOP 1.5 MG PT72 [...] at 7 days PERMETHRIN 5 % CREA 695832 PERMETHRIN Inactive WELLBUTRIN 75 MG TABS 2 times daily WELLBUTRIN 75 MG TABS BUPROPION HCL Inactive CYMBALTA 30 MG CPEP 1 cap by mouth daily CYMBALTA 30 MG CPEP 047182 DULOXETINE HCL Inactive AZITHROMYCIN 500 MG SOLR 1 po q day ALTA THROMYCIN 500 MG SOLR 21687710643 AZITHROMYCIN Inactive CINNAMON ALPHA LIPOIC AC CMPLX CAPS by mouth twice a d ay in AM by mouth twice a day in PM CINNAMON ALPHA LIPOIC AC CMPLX CAPS ALPHA LIPOIC [id number] CAPS Inactive MICARDIS HCT 80-12.5 MG TABS 1 qd MICARDI S HCT 80-12.5 MG TABS 087957 TELMISARTAN-HCTZ Inactive PRAVASTATIN SODIUM 20 MG TABS 1 tablet by mouth daily at bedtime PRAVASTATIN SODIUM 20 MG TABS 130733 PRAVASTATIN SODIUM Inactive FUROSEMIDE 20 MG TABS 1 pill by mouth daily if needed for edema FUROSEMIDE 20 MG TABS 521307 FUROSEMIDE Inactive METFORMIN HCL 500 MG TABS 1 bid METFORMIN HCL 500 MG TABS 222249 METFORMIN HCL Inactive B-12 1000 MCG CAPS 1 tab daily B-12 1000 MCG CAP S CYANOCOBALAMIN Inactive VITAMIN E 200 UNIT CAPS 1 cap po qd VITAMIN E 2 00 UNIT CAPS 5626174 VITAMIN E Inactive [facility] MELATONIN 5-10 MG CR-TABS Take one by mouth daily at bedtime [facility] MELATONIN 5-10 MG CR-TABS MELATONIN-PYRIDOXI NE Inactive LORTAB 7.5-500 MG TABS take one po Q6 hours LORTAB 7.5-500 MG TABS HYDROCODONE-ACETAMINOPHEN Inactive AZITHROMYCIN 250 MG ORAL TABS Take 2 tabs po today then 1 ta b po daily AZITHROMYCIN 250 MG ORAL TABS 3698849 AZITHROMYCI N Inactive SYMBICORT 160-4.5 MCG/ACT AERO 2 puffs BID SYMBICORT 160- 4.5 MCG/ACT AERO BUDESONIDE-FORMOTEROL FUMARATE Inactive ALBUTEROL SULFATE 0.083 % NEBU SOLN one vial per nebul izer every 4-6 hours as needed ALBUTEROL SULFATE 0.083 % NEBU SOLN 15017 8 ALBUTEROL SULFATE Inactive NEBULIZER MISC use as directed NEBULIZER MISC NEBULIZERS Inactive TESSALON PERLES 100 MG CAP 1 tablet by mouth 3 times daily 07/07 TESSALON PERLES 100 MG CAP 303351 BENZONATATE Inact jairo CYCLOBENZAPRINE HCL 10 MG TABS Take 1 tab TID PRN for muscle pain CYCLOBENZAPRINE HCL 10 MG TABS 525242 CYCLOBENZAPRINE HCL Inactive AMOXICILLIN 500 MG CAPS 2 po BID x 10 days AMOXICILLIN 500 MG CAPS 024279 AMOXICILLIN Inactive AZITHROMYCIN 250 MG TABS take 2 po today then take 1 po days 2-5 AZITHROMYCIN 250 MG TABS 2080293 AZITHROMYCIN Inactiv e LEVAQUIN 500 MG TABS 1 pill by mouth daily LEVAQUIN 500 MG TABS 884267 LEVOFLOXACIN Inactive AUGMENTIN 875-125 MG TABS 1 pill by mouth twice daily AUGMENTIN 875-125 MG TABS 022411 AMOXICILLIN-POT CLAVULANATE Inacti ve AUGMENTIN 875-125 MG TAB 1 po BID x 10 days AUGMENTIN 875- 125 MG TAB 114917 AMOXICILLIN-POT CLAVULANATE Inactive PREDNISONE 20 MG TAB take 3 tabs daily for 3 days , 2 tabs daily for 3 days, 1 tab daily for 3 days, 1/2 tab daily for 3 days PREDNISONE 20 MG TAB 392167 PREDNISONE Inactive Vital Signs Date Name Value [...] 5.8 % 4.3-6.0 cholesterol, serum 200 mg/dL 645-099 5881/07/22 triglyceride, serum, fasting 56 mg/dL 30-200 HDL cholesterol, serum 80 mg/dL 32-96 LDL cholesterol, serum 109 mg/dL 0-130 albumin/creatinine ratio, urine < 30 mg/g mg/g{creat} 0-2 9 TSH 1.16 m[iU]/mL 0.36-3.74 sodium, serum 142 mmol/L 608-253 3839/07/22 carbon dioxide, venous blood 33.1 mmol/L 21.0-32 [...] Negative;Positive Encounters Code Encounter Date Provider Facility CPT-47527 Level 3 Est. Patient 10:04:13 CDT Bertrand marquez [facility] CPT-51759 Level 4 Est. Patient 16:02:10 WELCOME WAGON HOST/HOSTESS Dangelo BARAJAS [facility] CPT-36613 Level 3 Est. Patient 13:04:54 WELCOME WAGON HOST/HOSTESS Dangelo BARAJAS [facility]-28837 Level 3 Est. Patient 12:56:37 CDT Bertrand marquez [facility] CPT-34700 Level 3 Est. Patient 19:12:03 CDT Yoli tolbert MD [facility]-11686 Level 3 Est. Patient 14:36:01 CDT Yoli tolbert MD [facility]-32249 Level 2 Est. Patient 08:00:22 CDT Jcarlos dc MD [facility]-64041 Level 3 Est. Patient 19:06:55 CDT Bertrand marquez [facility]-17804 Level 3 Est. Patient 10:08:23 WELCOME WAGON HOST/HOSTESS Bertrand marquez [facility] CPT-59458 Level 3 Est. Patient 16:37:54 WELCOME WAGON HOST/HOSTESS Bertrand marquez [facility] CPT-50560 Level 3 Est. Patient 11:31:59 WELCOME WAGON HOST/HOSTESS Bertrand marquez [facility] CPT-16370 Level 3 Est. Patient 10:20:08 CDT Adolfo villasenor [facility]-40862 Level 3 Est. Patient 13:45:20 CDT Sanket buckley [facility] CPT-27217 Level 3 Est. Patient 12:51:06 CDT Adolfo villasenor [facility]-48725 Level 3 Est. Patient 11:22:51 WELCOME WAGON HOST/HOSTESS Yoli tolbert MD [facility]-57184 Level 3 Est. Patient 13:33:19 CDT Bertrand marquez [facility] Procedures Code Procedure Name Date Entry Date Standard Desc ription CPT-25756 Wound Culture - LAB USE ONLY 15:45:25 CDT 2 CPT-74252 Venipuncture Draw Fee 10:23:01 CDT CPT-J0696 Rocephin 1000 mg (Ceftriaxone) 16:20:30 WELCOME WAGON HOST/HOSTESS CPT-79855 Abx/Therapy Injection 16:20:29 WELCOME WAGON HOST/HOSTESS CPT-J0696 Rocephin 1gm Inj Solr 15:51:59 WELCOME WAGON HOST/HOSTESS CPT-34550 Chest 2V Frontal and Lat 15:20:28 WELCOME WAGON HOST/HOSTESS 07/22 CPT-83056 Breathing Tx 14:51:55 WELCOME WAGON HOST/HOSTESS CPT-83851 Breathing Tx 09:57:16 WELCOME WAGON HOST/HOSTESS CPT-40033 Knee comp 4/> V 11:58:06 WELCOME WAGON HOST/HOSTESS
--- OUTSIDE RECORDS SUMMARY | 2019-11-13 10:24 | XMS REPORT | Clinical Summary ---
Author Author Admin, Enrique Adamson Organization [employer] Address Unknown Phone Unavailable Allergies, Adverse Reactions, [...] NDC Status Provider Patient Instruction VITAMIN D3 95701 UNIT CAPS 1 pill Week x 4 months for vitamin D deficiency/osteoporosis CHOLECALCIFEROL 22733601849 Active Darlyn Monzon Active BENZONATATE 200 MG ORAL CAPS 1 three times a day as needed for c ough BENZONATATE 91997367056 Active Ike Deluna MD Acti ve ZITHROMAX Z-MARTIN 250 MG TABS 2 today and then 1 daily for 4 days 201 12/01/06 AZITHROMYCIN 52762107752 Active Ike Deluna MD Active ADDERALL 10 MG ORAL TABS 1 tab twice daily AMPHETAMINE-DEXTROAMPHETAMINE 53255284020 Active Ike Deluna MD Active BACTROBAN 2 % CREAM Apply to affected area BID for up to 10 days MUPIROCIN CALCIUM 78877032033 No Longer Active Ike Deluna MD Active CIPRO 500 MG TAB 1 tablet by mouth twice daily CIPROFLOXACIN HCL 82700686684 No Longer Active Adriana Bender LPN Active AUGMENTIN 875-125 MG TAB 1 po BID x 10 days AMOXICILLIN- POT CLAVULANATE 21564000596 No Longer Active Adriana Bender LPN Active MODAFINIL 200 MG ORAL TABS Take 1/2 tab po in the am and 1/2 tab po at noon MODAFINIL 29605922591 Active Bertrand Patel DO Ac tive CYCLOBENZAPRINE HCL 10 MG TABS Take 1 tab TID PRN for muscle pain CYCLOBENZAPRINE HCL 28781419692 No Longer Active Bertrand Patel DO Ac tive TESSALON PERLES 100 MG CAP 1 tablet by mouth 3 times daily 07/07 BENZONATATE 84791309751 No Longer Active Bertrand Patel DO Ac tive NEBULIZER MISC use as directed NEBULIZERS 531604 34921 No Longer Active Bertrand Patel DO Active ALBUTEROL SULFATE 0.083 % NEBU SOLCammy one vial per nebul izer every 4-6 hours as needed ALBUTEROL SULFATE 04569121599 No Longer Active Bertrand Patel DO Active SYMBICORT 160-4.5 MCG/ACT AERO 2 puffs BID BUDESONIDE- FORMOTEROL FUMARATE 21147659960 No Longer Active Bertrand Patel DO Ac tive PREDNISONE 20 MG TAB take 3 tabs daily for 3 days , 2 tabs daily for 3 days, 1 tab daily for 3 days, 1/2 tab daily for 3 days P REDNISONE 29678134121 No Longer Active Silvia Arnold APRN Active AZITHROMYCIN 250 MG ORAL TABS Take 2 tabs po today then 1 ta b po daily AZITHROMYCIN 28102138722 No Longer Active Silvia Jorge leslye CHILD DAYCARE WORKER Active AUGMENTIN 875-125 MG TAB 1 po BID x 10 days AMOXICILLIN- POT CLAVULANATE 77866591431 No Longer Active Adriana Bender LPN Active CHEWABLE CALCIUM 500-200-40 MG-UNT-MCG ORAL CHEW 1 chew tab bid 201 11/03/03 CALCIUM-VITAMIN D-VITAMIN K 39940579257 Active Silvia Arnold APRN Active EQ COMPLETE MULTIVIT ADULT 50+ ORAL TABS 1 tab po bid MULTIPLE VITAMINS-MINERALS 06864961542 Active Silvia Arnold APRN Act jairo HYDROCODONE-ACETAMINOPHEN 7.5-325 MG TABS TAKE ONE TAB EVERY 6 HOURS BY MOUTH NEEDED FOR PAIN HYDROCODONE-ACETAMINOPHEN 02010256829 Acti ve Bertrand Patel DO Active LORTAB 7.5-500 MG TABS take one po Q6 hours HYDROCODONE-ACETAMINOPHEN No Longer Active Nirmal Robbins RN Active [facility] MELATONIN 5-10 MG CR-TABS Take one by mouth daily at bedtime MELATONIN-PYRIDOXINE 21644166639 No Longer Active Bertrand Patel DO Active VITAMIN E 200 UNIT CAPS 1 cap po qd VITAMIN E 316 10710654 No Longer Active Bertrand Patel DO Active B-12 1000 MCG CAPS 1 tab daily CYANOCOBALAMIN 31 145531884 No Longer Active Bertrand Patel DO Active METFORMIN HCL 500 MG TABS 1 bid METFORMIN HCL 12713978180 No Longer Active Bertrand Patel DO Active FUROSEMIDE 20 MG TABS 1 pill by mouth daily if needed for edema FUROSEMIDE 29709676525 No Longer Active Bertrand Patel DO Act jairo PRAVASTATIN SODIUM 20 MG TABS 1 tablet by mouth daily at bedtime PRAVASTATIN SODIUM 28677735370 No Longer Active Bertrand Patel DO Active AUGMENTIN 875-125 MG TABS 1 pill by mouth twice daily AMOXICILLIN-POT CLAVULANATE 88626419857 No Longer Active Yoli Mercado MD PhD Active LEVAQUIN 500 MG TABS 1 pill by mouth daily LEVO FLOXACIN 13316952526 No Longer Active Yoli Mercado MD PhD Active AMLODIPINE BESYLATE 5 MG TABS 1 tablet by mouth daily for bl ood pressure AMLODIPINE BESYLATE 74255172239 Active Darlyn Monzon Active MICARDIS 80 MG TABS 1 tablet daily for blood pressure TELMISARTAN 96073410471 Active Bertrand Patel DO Active MICARDIS HCT 80-12.5 MG TABS 1 qd TELMISARTA N-HCTZ 37328294256 No Longer Active Bertrand Patel DO Active CINNAMON ALPHA LIPOIC AC CMPLX CAPS by mouth twice a d ay in AM by mouth twice a day in PM ALPHA LIPOIC [id number] CAPS 885855 51615 No Longer Active Bertrand Patel DO Active AZITHROMYCIN 500 MG SOLR 1 po q day AZITHROMYCI N 34332791908 No Longer Active Bertrand Patel DO Active CYMBALTA 30 MG CPEP 1 cap by mouth daily DULOXE CATHI HCL 34139550556 No Longer Active Bertrand Patel DO Active CYMBALTA 60 MG CPEP 1 cap by mouth daily DULOXE CATHI HCL 54816738861 Active Keysha Jones MA Active WELLBUTRIN 75 MG TABS 2 times daily BUPROPION H CL 12449503200 No Longer Active Bertrand W Jorge DO Active PROAIR HFA 108 (90 BASE) MCG/ACT AERS take one to two puffs po Q4-6 hour prn cough and shortness of breath ALBUTEROL SULFATE 2835079103 2 Active Silvia Arnold CHILD DAYCARE WORKER Active AZITHROMYCIN 250 MG TABS take 2 po today then take 1 po days 2-5 AZITHROMYCIN 67508042528 No Longer Active Adolfo OSORIO Active PERMETHRIN 5 % CREA apply neck to toes tonight a nd then rinse off in morning. 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 b.i.d. x2 weeks 03/04 NITROFURANTOIN MACROCRYSTAL 05532943805 No Longer Active Bertrand Patel DO Active MACRODANTIN 100 MG CAPS one p.o. b.i.d. x2 weeks 03/04 MACRODANTIN 100 MG CAPS 9426168 NITROFURANTOIN MACROCRYSTAL Inactive TRANSDERM-SCOP 1.5 MG PT72 [...] at 7 days PERMETHRIN 5 % CREA 423918 PERMETHRIN Inactive WELLBUTRIN 75 MG TABS 2 times daily WELLBUTRIN 75 MG TABS BUPROPION HCL Inactive CYMBALTA 30 MG CPEP 1 cap by mouth daily CYMBALTA 30 MG CPEP 776500 DULOXETINE HCL Inactive AZITHROMYCIN 500 MG SOLR 1 po q day ALTA THROMYCIN 500 MG SOLR 44363885053 AZITHROMYCIN Inactive CINNAMON ALPHA LIPOIC AC CMPLX CAPS by mouth twice a d ay in AM by mouth twice a day in PM CINNAMON ALPHA LIPOIC AC CMPLX CAPS ALPHA LIPOIC [id number] CAPS Inactive MICARDIS HCT 80-12.5 MG TABS 1 qd MICARDI S HCT 80-12.5 MG TABS 480578 TELMISARTAN-HCTZ Inactive PRAVASTATIN SODIUM 20 MG TABS 1 tablet by mouth daily at bedtime PRAVASTATIN SODIUM 20 MG TABS 537397 PRAVASTATIN SODIUM Inactive FUROSEMIDE 20 MG TABS 1 pill by mouth daily if needed for edema FUROSEMIDE 20 MG TABS 893600 FUROSEMIDE Inactive METFORMIN HCL 500 MG TABS 1 bid METFORMIN HCL 500 MG TABS 808085 METFORMIN HCL Inactive B-12 1000 MCG CAPS 1 tab daily B-12 1000 MCG CAP S CYANOCOBALAMIN Inactive VITAMIN E 200 UNIT CAPS 1 cap po qd VITAMIN E 2 00 UNIT CAPS 5402632 VITAMIN E Inactive [facility] MELATONIN 5-10 MG CR-TABS Take one by mouth daily at bedtime [facility] MELATONIN 5-10 MG CR-TABS MELATONIN-PYRIDOXI NE Inactive LORTAB 7.5-500 MG TABS take one po Q6 hours LORTAB 7.5-500 MG TABS HYDROCODONE-ACETAMINOPHEN Inactive AZITHROMYCIN 250 MG ORAL TABS Take 2 tabs po today then 1 ta b po daily AZITHROMYCIN 250 MG ORAL TABS 5001933 AZITHROMYCI N Inactive SYMBICORT 160-4.5 MCG/ACT AERO 2 puffs BID SYMBICORT 160- 4.5 MCG/ACT AERO BUDESONIDE-FORMOTEROL FUMARATE Inactive ALBUTEROL SULFATE 0.083 % NEBU SOLN one vial per nebul izer every 4-6 hours as needed ALBUTEROL SULFATE 0.083 % NEBU SOLN 51345 8 ALBUTEROL SULFATE Inactive NEBULIZER MISC use as directed NEBULIZER MISC NEBULIZERS Inactive TESSALON PERLES 100 MG CAP 1 tablet by mouth 3 times daily 07/07 TESSALON PERLES 100 MG CAP 392137 BENZONATATE Inact jairo CYCLOBENZAPRINE HCL 10 MG TABS Take 1 tab TID PRN for muscle pain CYCLOBENZAPRINE HCL 10 MG TABS 163036 CYCLOBENZAPRINE HCL Inactive AUGMENTIN 875-125 MG TAB 1 po BID x 10 days AUGMENTIN 875- 125 MG TAB 474874 AMOXICILLIN-POT CLAVULANATE Inactive BACTROBAN 2 % CREAM Apply to affected area BID for up to 10 days BACTROBAN 2 % CREAM 205950 MUPIROCIN CALCIUM Inactive AMOXICILLIN 500 MG CAPS 2 po BID x 10 days AMOXICILLIN 500 MG CAPS 115796 AMOXICILLIN Inactive AZITHROMYCIN 250 MG TABS take 2 po today then take 1 po days 2-5 AZITHROMYCIN 250 MG TABS 8456485 AZITHROMYCIN Inactiv e LEVAQUIN 500 MG TABS 1 pill by mouth daily LEVAQUIN 500 MG TABS 020376 LEVOFLOXACIN Inactive AUGMENTIN 875-125 MG TABS 1 pill by mouth twice daily AUGMENTIN 875-125 MG TABS 318734 AMOXICILLIN-POT CLAVULANATE Inacti ve AUGMENTIN 875-125 MG TAB 1 po BID x 10 days AUGMENTIN 875- 125 MG TAB 882738 AMOXICILLIN-POT CLAVULANATE Inactive PREDNISONE 20 MG TAB take 3 tabs daily for 3 days , 2 tabs daily for 3 days, 1 tab daily for 3 days, 1/2 tab daily for 3 days PREDNISONE 20 MG TAB 639031 PREDNISONE Inactive CIPRO 500 MG TAB 1 tablet by mouth twice daily CIPRO 500 MG TAB 085330 CIPROFLOXACIN HCL Inactive Vital Signs Date Name [...] 4.3-6.0 Encounters Code Encounter Date Provider Facility CPT-94816 Level 4 Est. Patient 12:31:54 CDT Bertrand marquez [facility] CPT-83514 Level 3 Est. Patient 11:27:00 CONTENT MANAGER Ike Deluna MD [facility]-57141 Level 3 Est. Patient 08:50:57 CONTENT MANAGER Dangelo BARAJAS [facility] CPT-14426 Level 3 Est. Patient 10:04:13 CDT Bertrand marquez [facility]-68484 Level 4 Est. Patient 16:02:10 CONTENT MANAGER Dangelo CHILD DAYCARE WORKER [facility] CPT-50473 Level 3 Est. Patient 13:04:54 CONTENT MANAGER Dangelo CHILD DAYCARE WORKER [facility]-27746 Level 3 Est. Patient 12:56:37 CDT Bertrand marquez [facility] CPT-79368 Level 3 Est. Patient 19:12:03 CDT Yoli tolbert MD PhD [facility] CPT-47540 Level 3 Est. Patient 14:36:01 CDT Yoli tolbert MD [facility]-63765 Level 2 Est. Patient 08:00:22 CDT Jcarlos dc MD [facility]-69103 Level 3 Est. Patient 19:06:55 CDT Bertrand marquez [facility] CPT-09895 Level 3 Est. Patient 10:08:23 CONTENT MANAGER Bertrand marquez [facility]-91889 Level 3 Est. Patient 16:37:54 CONTENT MANAGER Bertrand marquez [facility] CPT-48923 Level 3 Est. Patient 11:31:59 CONTENT MANAGER Bertrand marquez [facility] CPT-18738 Level 3 Est. Patient 10:20:08 CDT Adolfo OSORIO [facility]-87942 Level 3 Est. Patient 13:45:20 CDT Sanket Ankit buckley [facility] CPT-75457 Level 3 Est. Patient 12:51:06 CDT Adolfo Monroyridge halljacklyn [facility] CPT-68957 Level 3 Est. Patient 11:22:51 CONTENT MANAGER Yoli tolbert MD PhD [facility] CPT-88815 Level 3 Est. Patient 13:33:19 CDT Bertrand Sabillon ee DO [facility] Procedures Code Procedure Name Date Entry Date Standard Desc ription CPT-75955 Wound Culture - LAB USE ONLY 15:45:25 CDT 2 CPT-25066 Venipuncture Draw Fee 10:23:01 CDT CPT-J0696 Rocephin 1000 mg (Ceftriaxone) 16:20:30 CONTENT MANAGER CPT-59920 Abx/Therapy Injection 16:20:29 CONTENT MANAGER CPT-J0696 Rocephin 1gm Inj Solr 15:51:59 CONTENT MANAGER CPT-96539 Chest 2V Frontal and Lat 15:20:28 CONTENT MANAGER 07/22 CPT-29175 Breathing Tx 14:51:55 CONTENT MANAGER CPT-05682 Breathing Tx 09:57:16 CONTENT MANAGER CPT-35776 Knee comp 4/> V 11:58:06 CONTENT MANAGER
--- OUTSIDE RECORDS SUMMARY | 2019-11-13 10:24 | XMS REPORT | Clinical Summary ---
Author Author Admin, Enrique Adamson Organization [facility] Address Unknown Phone Unavailable Allergies, Adverse Reactions, [...] except foot Foreign body, ear 931 Resolved oYli Mercado MD PhD Foreign body in ear [...] NDC Status Provider Patient Instruction VITAMIN D3 56606 UNIT ORAL CAPSULE 1 pill Week x 4 mo nt for vitamin D deficiency/osteoporosis CHOLECALCIFEROL [id number] N o Longer Active Laylaana cristina Mcmullen Active BENZONATATE 200 MG ORAL CAPSULE 1 three times a day as neede d for cough BENZONATATE 36707235856 Active Ike Deluna MD Active ZITHROMAX Z-MARTIN 250 MG ORAL TABLET 2 today and then 1 daily for 4 days AZITHROMYCIN 56425638281 Active Ike Deluna MD Active ADDERALL 10 MG ORAL TABLET 1 tab twice daily AMPHETAMINE-DEXTROAMPHETAMINE 44853693697 Active Ike Deluna MD Active BACTROBAN 2 % EXTERNAL CREAM Apply to affected area BID for up to 10 days MUPIROCIN CALCIUM 61423000462 No Longer Active Ike Deluna MD Active CIPRO 500 MG ORAL TABLET 1 tablet by mouth twice daily CIPROFLOXACIN HCL 92930703283 No Longer Active Adriana Bender LPN Active AUGMENTIN 875-125 MG ORAL TABLET 1 po BID x 10 days 20 18/04/06 AMOXICILLIN-POT CLAVULANATE 25762498571 No Longer Active Adriana Bender LPN Active MODAFINIL 200 MG ORAL TABLET Take 1/2 tab po in the am and 1 /2 tab po at noon MODAFINIL 34631544560 Active Bertrand Patel DO Ac tive CYCLOBENZAPRINE HCL 10 MG ORAL TABLET Take 1 tab TID PRN for mus triston pain CYCLOBENZAPRINE HCL 15020902025 No Longer Active Bertrand Patel DO Active TESSALTIAGO PERLES 100 MG ORAL CAPSULE 1 tablet by mouth 3 times da juan pablo BENZONATATE 09165990470 No Longer Active Bertrand Patel DO Ac tive NEBULIZER use as directed NEBULIZERS 68024579969 No Longer Active Bertrand Patel DO Active ALBUTEROL SULFATE (2.5 MG/3ML) 0.083% INHALATION NEBUL IZATION SOLUTION one vial per nebulizer every 4-6 hours as needed ALBUTERO L SULFATE 33094277473 No Longer Active Bertrand Patel DO Active SYMBICORT 160-4.5 MCG/ACT INHALATION AEROSOL 2 puffs BID 9 BUDESONIDE-FORMOTEROL FUMARATE 21176914329 No Longer Active Bertrand Patel DO Active PREDNISONE 20 MG ORAL TABLET take 3 tabs daily for 3 d ays, 2 tabs daily for 3 days, 1 tab daily for 3 days, 1/2 tab daily for 3 days 08/02 PREDNISONE 99530030289 No Longer Active Silvia Arnold APRN Acti ve AZITHROMYCIN 250 MG ORAL TABLET Take 2 tabs po today then 1 tab po daily AZITHROMYCIN 26183146483 No Longer Active Silvia Jorge leslye TOVARN Active AUGMENTIN 875-125 MG ORAL TABLET 1 po BID x 10 days 20 19/07/13 AMOXICILLIN-POT CLAVULANATE 72410590605 No Longer Active Adriana Bender LPN Active CHEWABLE CALCIUM 500-200-40 MG-UNT-MCG ORAL TABLET CHEWABLE 1 chew tab bid CALCIUM-VITAMIN D-VITAMIN K 17690782739 Active Silvia nunes APRN Active EQ COMPLETE MULTIVIT ADULT 50+ ORAL TABLET 1 tab po bid MULTIPLE VITAMINS-MINERALS 62078579882 Active Silvia Arnold APRN Act jairo HYDROCODONE-ACETAMINOPHEN 7.5-325 MG ORAL TABLET TAKE ONE TAB EVERY 6 HOURS BY MOUTH NEEDED FOR PAIN HYDROCODONE-ACETAMINOPHEN 004 62730031 Active Adele Feldman LPN Active LORTAB 7.5-500 MG ORAL TABLET take one po Q6 hours 201 09/12/01 HYDROCODONE-ACETAMINOPHEN 54244953517 No Longer Active Nirmal Robbins RN Active [facility] MELATONIN 5-10 MG ORAL TABLET EXTENDED RELEASE Jair e one by mouth daily at bedtime MELATONIN-PYRIDOXINE 83598910727 No Longer Acti ve Bertrand Patel DO Active VITAMIN E 200 UNIT ORAL CAPSULE 1 cap po qd VITAM IN E 39800618820 No Longer Active Bertrand Patel DO Active B-12 1000 MCG ORAL CAPSULE 1 tab daily CYANOCOB ALAMIN 24913779611 No Longer Active Bertrand W Jorge DO Active METFORMIN HCL 500 MG ORAL TABLET 1 bid METFOR MIN HCL 85078778454 No Longer Active Bertrand Patel DO Active FUROSEMIDE 20 MG ORAL TABLET 1 pill by mouth daily if needed for edema FUROSEMIDE 06943423173 No Longer Active Bertrand Patel DO Active PRAVASTATIN SODIUM 20 MG ORAL TABLET 1 tablet by mouth daily at bedtime PRAVASTATIN SODIUM 95308249755 No Longer Active Bertrand Patel DO Active AUGMENTIN 875-125 MG ORAL TABLET 1 pill by mouth twice daily 201 09/10/00 AMOXICILLIN-POT CLAVULANATE 38865520291 No Longer Active Yoli Mercado MD PhD Active LEVAQUIN 500 MG ORAL TABLET 1 pill by mouth daily 2013 LEVOFLOXACIN 49346535380 No Longer Active Yoli Mercado MD PhD Acti ve AMLODIPINE BESYLATE 5 MG ORAL TABLET 1 tablet by mouth daily for blood pressure AMLODIPINE BESYLATE 23248503487 Active Layla Mcmullen Active MICARDIS 80 MG ORAL TABLET 1 tablet daily for blood pressure 07/30 TELMISARTAN 66521402433 Active Darlyn Monzon Active MICARDIS HCT 80-12.5 MG ORAL TABLET 1 qd TELMISARTAN-HCTZ 82357800024 No Longer Active Bertrand Patel DO Active CINNAMON ALPHA LIPOIC AC CMPLX CAPSULE by mouth twice a day in AM by mouth twice a day in PM ALPHA LIPOIC [id number] CA PS 23767586969 No Longer Active Bertarnd Patel DO Active AZITHROMYCIN 500 MG INTRAVENOUS SOLUTION RECONSTITUTED 1 po q da y AZITHROMYCIN 54424118373 No Longer Active Bertrand Patel DO A ctive CYMBALTA 30 MG ORAL CAPSULE DELAYED RELEASE PARTICLES 1 cap by mouth daily DULOXETINE HCL 06775622279 No Longer Active Bertrand marquez DO Active CYMBALTA 60 MG ORAL CAPSULE DELAYED RELEASE PARTICLES 1 cap by mouth daily DULOXETINE HCL 79559442494 Active Darlyn Monzon Active WELLBUTRIN 75 MG ORAL TABLET 2 times daily BUPR OPION HCL 70880819935 No Longer Active Bertrand Patel DO Active PROAIR HFA 108 (90 Base) MCG/ACT INHALATION AEROSOL SO LUTION take one to two puffs po Q4-6 hour prn cough and shortness of breath ALBUTEROL SULFATE 91431317933 Active Silvia Arnold [employer]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 repeat at 7 days PERMETHRIN 02251397984 No Longer Active Adolfo OSORIO Active AMOXICILLIN 500 MG ORAL CAPSULE 2 po BID x 10 days 201 07/15/00 AMOXICILLIN 33844715213 No Longer Active Yoli Mercado MD PhD Acti ve ALPRAZOLAM 0.5 MG ORAL TABLET 1 tab by mouth tid ALPRAZOLAM 61755527165 Active Nitza Mullins LPN Active INSUPEN ULTRAFIN 31G X 6 MM USE DIRECTED INSULIN PEN NEEDLE 05180987831 No Longer Active Bertrand Patel DO Active TRANSDERM-SCOP (1.5 MG) 1 MG/3DAYS TRANSDERMAL PATCH 7 2 HOUR 1 patch applied behind ear q 3 day SCOPOLAMINE BASE 79876839304 No Lo nger Active Bertrand Patel DO Active MACRODANTIN 100 MG ORAL CAPSULE one p.o. b.i.d. x2 weeks NITROFURANTOIN MACROCRYSTAL 81973720500 No Longer Active Bertrand Patel DO Active MACRODANTIN 100 MG ORAL CAPSULE one p.o. b.i.d. x2 weeks MACRODANTIN 100 MG ORAL CAPSULE 9836013 NITROFURANTOIN MACROCRYSTAL Inactive TRANSDERM-SCOP (1.5 MG) 1 [...] days PERMETHRIN 5 % EXTER NAL CREAM 189734 PERMETHRIN Inactive WELLBUTRIN 75 MG ORAL TABLET 2 times daily WELLBUTRIN 75 MG ORAL TABLET 403522 BUPROPION HCL Inactive CYMBALTA 30 MG ORAL CAPSULE DELAYED RELEASE PARTICLES 1 cap by mouth daily CYMBALTA 30 MG ORAL CAPSULE DELAYED RELE ASE PARTICLES 568415 DULOXETINE HCL Inactive AZITHROMYCIN 500 MG INTRAVENOUS SOLUTION RECONSTITUTED 1 po q da y AZITHROMYCIN 500 MG INTRAVENOUS SOLUTION RECONSTITUTED 93672 119042 AZITHROMYCIN Inactive CINNAMON ALPHA LIPOIC AC CMPLX CAPSULE by mouth twice a day in AM by mouth twice a day in PM CINNAMON ALPHA LIPOIC AC CMPLX CAPSULE ALPHA LIPOIC [id number] CAPS Inactive MICARDIS HCT 80-12.5 MG ORAL TABLET 1 qd 07/30 MICARDIS HCT 80-12.5 MG ORAL TABLET 451226 TELMISARTAN-HCTZ Inactive PRAVASTATIN SODIUM 20 MG ORAL TABLET 1 tablet by mouth daily at bedtime PRAVASTATIN SODIUM 20 MG ORAL TABLET 510535 PRAVASTATIN SODIUM Inactive FUROSEMIDE 20 MG ORAL TABLET 1 pill by mouth daily if needed for edema FUROSEMIDE 20 MG ORAL TABLET 275245 FUROSEMIDE Inactive METFORMIN HCL 500 MG ORAL TABLET 1 bid METFORMIN HCL 500 MG ORAL TABLET 446879 METFORMIN HCL Inactive B-12 1000 MCG ORAL CAPSULE 1 tab daily B -12 1000 MCG ORAL CAPSULE CYANOCOBALAMIN Inactive VITAMIN E 200 UNIT ORAL CAPSULE 1 cap po qd 1 VITAMIN E 200 UNIT ORAL CAPSULE 6198656 VITAMIN E Inactive [facility] MELATONIN 5-10 MG ORAL TABLET EXTENDED RELEASE Jair e one by mouth daily at bedtime [facility] MELATONIN 5-10 M G ORAL TABLET EXTENDED RELEASE MELATONIN-PYRIDOXINE Inactive LORTAB 7.5-500 MG ORAL TABLET take one po Q6 hours 201 09/12/01 LORTAB 7.5-500 MG ORAL TABLET 163704 HYDROCODONE-ACETAMINOPHEN Inactive AZITHROMYCIN 250 MG ORAL TABLET Take 2 tabs po today then 1 tab po daily AZITHROMYCIN 250 MG ORAL TABLET 258732 AZITHROMY BERNARDO Inactive SYMBICORT 160-4.5 MCG/ACT INHALATION AEROSOL 2 puffs BID 9 SYMBICORT 160-4.5 MCG/ACT INHALATION AEROSOL BUDESONIDE-FORM OTEROL FUMARATE Inactive ALBUTEROL SULFATE (2.5 MG/3ML) 0.083% INHALATION NEBUL IZATION SOLUTION one vial per nebulizer every 4-6 hours as needed ALBUTEROL SULFATE (2.5 MG/3ML) 0.083% INHALATION NEBULIZATION SOLUTION 352821 ALBUTER OL SULFATE Inactive NEBULIZER use as directed NEBULIZER NEBULI ZERS Inactive TESSALON PERLES 100 MG ORAL CAPSULE 1 tablet by mouth 3 times da juan pablo TESSALON PERLES 100 MG ORAL CAPSULE 076629 BENZONATATE Inactive CYCLOBENZAPRINE HCL 10 MG ORAL TABLET Take 1 tab TID PRN for mus triston pain CYCLOBENZAPRINE HCL 10 MG ORAL TABLET 095415 CYCLOBENZA ANUJA HCL Inactive AUGMENTIN 875-125 MG ORAL TABLET 1 po BID x 10 days 20 18/04/06 AUGMENTIN 875-125 MG ORAL TABLET 735480 AMOXICILLIN-POT CLAVULANATE Inactive BACTROBAN 2 % EXTERNAL CREAM Apply to affected area BID for up to 10 days BACTROBAN 2 % EXTERNAL CREAM 862909 MUPIROCIN CA LCIUM Inactive VITAMIN D3 38982 UNIT ORAL CAPSULE 1 pill Week x 4 mo nths for vitamin D deficiency/osteoporosis VITAMIN D3 80047 UNIT ORAL CAPSULE CHOLECALCIFEROL Inactive AMOXICILLIN 500 MG ORAL CAPSULE 2 po BID x 10 days 201 07/15/00 AMOXICILLIN 500 MG ORAL CAPSULE 243102 AMOXICILLIN Inactive AZITHROMYCIN 250 MG ORAL TABLET take 2 po today then take 1 po days 2-5 AZITHROMYCIN 250 MG ORAL TABLET 480249 AZITHROMY BERNARDO Inactive LEVAQUIN 500 MG ORAL TABLET 1 pill by mouth daily 2013 LEVAQUIN 500 MG ORAL TABLET 807183 LEVOFLOXACIN Inactive AUGMENTIN 875-125 MG ORAL TABLET 1 pill by mouth twice daily 201 09/10/00 AUGMENTIN 875-125 MG ORAL TABLET 906453 AMOXICILLIN-POT CLAVULANATE Inactive AUGMENTIN 875-125 MG ORAL TABLET 1 po BID x 10 days 19/07/13 AUGMENTIN 875-125 MG ORAL TABLET 883830 AMOXICILLIN-POT CLAVULANATE Inactive PREDNISONE 20 MG ORAL TABLET take 3 tabs daily for 3 d ays, 2 tabs daily for 3 days, 1 tab daily for 3 days, 1/2 tab daily for 3 days 08/02 PREDNISONE 20 MG ORAL TABLET 967718 PREDNISONE Inactive CIPRO 500 MG ORAL TABLET 1 tablet by mouth twice daily CIPRO 500 MG ORAL TABLET 019635 CIPROFLOXACIN HCL Inactive Vital Signs Date Name [...] 0-19 Encounters Code Encounter Date Provider Facility CPT-19117 Level 4 Est. Patient 12:31:54 CDT Bertrand marquez [facility] CPT-10823 Level 3 Est. Patient 11:27:00 [employer]SP[employer]ER [employer]IPPER Ike Deluna MD [facility]-55345 Level 3 Est. Patient 08:50:57 [employer] Dangelo T[employer]IVER [facility]-99967 Level 3 Est. Patient 10:04:13 CDT Bertrand marquez [facility] CPT-21411 Level 4 Est. Patient 16:02:10 [employer]SP[employer]ER [employer]IPPER Dangelo [facility]-76848 Level 3 Est. Patient 13:04:54 NEWSPAPER [employer]IPPER Dangelo [facility] CPT-13748 Level 3 Est. Patient 12:56:37 CDT Bertrand marquez [facility] CPT-11311 Level 3 Est. Patient 19:12:03 CDT Yoli tolbert MD PhD [facility] CPT-07612 Level 3 Est. Patient 14:36:01 CDT Yoli tolbert MD PhD [facility] CPT-63263 Level 2 Est. Patient 08:00:22 CDT Jcarlos dc MD [facility]-64158 Level 3 Est. Patient 19:06:55 CDT Bertrand marquez [facility] CPT-71432 Level 3 Est. Patient 10:08:23 [employer]SPAPER [employer]IP[employer] Bertrand marquez [facility] CPT-71221 Level 3 Est. Patient 16:37:54 [employer]SP[employer]ER [employer] Bertrand marquez [facility] CPT-70421 Level 3 Est. Patient 11:31:59 [employer]SPAPER [employer]PER Bertrand marquez [facility] CPT-64251 Level 3 Est. Patient 10:20:08 CDT Adolfo villasenor [facility] CPT-79502 Level 3 Est. Patient 13:45:20 CDT Sanket buckley [facility] CPT-41484 Level 3 Est. Patient 12:51:06 CDT Adolfo villasenor [facility] CPT-82333 Level 3 Est. Patient 11:22:51 [employer]SP[employer]ER [employer]IPPER Yoli tolbert MD [facility] CPT-61461 Level 3 Est. Patient 13:33:19 CDT Bertrand marquez [facility] Procedures Code Procedure Name Date Entry Date Standard Desc ription CPT-09326 Wound Culture - LAB USE ONLY 15:45:25 CDT 2 CPT-38059 Venipuncture Draw Fee 10:23:01 CDT CPT-J0696 Rocephin 1000 mg (Ceftriaxone) 16:20:30 [employer] CPT-94829 Abx/Therapy Injection 16:20:29 [employer]ER [employer] CPT-J0696 Rocephin 1gm Inj Solr 15:51:59 [employer]ER [employer] CPT-08885 Chest 2V Frontal and Lat 15:20:28 [employer]SPAPER [employer]IPPER 07/22 CPT-29994 Breathing Tx 14:51:55 [employer]SP[employer]ER [employer]IPPER CPT-71058 Breathing Tx 09:57:16 [employer]ER [employer]IPPER CPT-10877 Knee comp 4/> V 11:58:06 [employer]SP[employer]ER [employer]IPPER
--- OUTSIDE RECORDS SUMMARY | 2019-11-13 10:25 | XMS REPORT | Clinical Summary ---
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 Fatigue 780.79 Active Silvia Arnold [...] to 10 days 20 18/03/27 MUPIROCIN CALCIUM 36279529287 Active Silvia Arnold APRN Act jairo AUGMENTIN 875-125 MG TAB 1 po BID x 10 days AMOXICILLIN- POT CLAVULANATE 20047416308 Active Silvia Arnold APRN Activ e MODAFINIL 200 MG ORAL TABS Take 1/2 tab po in the am and 1/2 tab po at noon MODAFINIL 60225675052 Active Silvia Arnold APRN Active CYCLOBENZAPRINE HCL 10 MG TABS Take 1 tab TID PRN for muscle pain CYCLOBENZAPRINE HCL 51754420347 No Longer Active Bertrand Patel DO Ac tive TESSALON PERLES 100 MG CAP 1 tablet by mouth 3 times daily 07/07 BENZONATATE 89868514331 No Longer Active Bertrand Patel DO Ac tive NEBULIZER MISC use as directed NEBULIZERS 687138 26606 No Longer Active Bertrand Patel DO Active ALBUTEROL SULFATE 0.083 % NEBU SOLN one vial per nebul izer every 4-6 hours as needed ALBUTEROL SULFATE 45636343025 No Longer Active Bertrand Patel DO Active SYMBICORT 160-4.5 MCG/ACT AERO 2 puffs BID BUDESONIDE- FORMOTEROL FUMARATE 96571363717 No Longer Active Bertrand Patel DO Ac tive PREDNISONE 20 MG TAB take 3 tabs daily for 3 days , 2 tabs daily for 3 days, 1 tab daily for 3 days, 1/2 tab daily for 3 days P REDNISONE 05724835989 No Longer Active Silvia Arnold APRN Active AZITHROMYCIN 250 MG ORAL TABS Take 2 tabs po today then 1 ta b po daily AZITHROMYCIN 14740986628 No Longer Active Silvia gavin APRN Active AUGMENTIN 875-125 MG TAB 1 po BID x 10 days AMOXICILLIN- POT CLAVULANATE 41713418952 No Longer Active Adriana Bender LPN Active CHEWABLE CALCIUM 500-200-40 MG-UNT-MCG ORAL CHEW 1 chew tab bid 201 11/03/03 CALCIUM-VITAMIN D-VITAMIN K 19531128335 Active Silvia Arnold APRN Active EQ COMPLETE MULTIVIT ADULT 50+ ORAL TABS 1 tab po bid MULTIPLE VITAMINS-MINERALS 19647456166 Active Silvia Arnold APRN Act jairo HYDROCODONE-ACETAMINOPHEN 7.5-325 MG TABS TAKE ONE TAB EVERY 6 HOURS BY MOUTH NEEDED FOR PAIN HYDROCODONE-ACETAMINOPHEN 16969619637 Acti raheel العلي Active LORTAB 7.5-500 MG TABS take one po Q6 hours HYDROCODONE-ACETAMINOPHEN No Longer Active Nirmal Robbins RN Active [facility] MELATONIN 5-10 MG CR-TABS Take one by mouth daily at bedtime MELATONIN-PYRIDOXINE 13783243814 No Longer Active Bertrand Patel DO Active VITAMIN E 200 UNIT CAPS 1 cap po qd VITAMIN E 316 89860771 No Longer Active Bertrand Patel DO Active B-12 1000 MCG CAPS 1 tab daily CYANOCOBALAMIN 31 501337934 No Longer Active Bertrand Patel DO Active METFORMIN HCL 500 MG TABS 1 bid METFORMIN HCL 18843043193 No Longer Active Bertrand Patel DO Active FUROSEMIDE 20 MG TABS 1 pill by mouth daily if needed for edema FUROSEMIDE 95041004638 No Longer Active Bertrand Patel DO Act jairo PRAVASTATIN SODIUM 20 MG TABS 1 tablet by mouth daily at bedtime PRAVASTATIN SODIUM 32771861817 No Longer Active Bertrand Patel DO Active AUGMENTIN 875-125 MG TABS 1 pill by mouth twice daily AMOXICILLIN-POT CLAVULANATE 02800489646 No Longer Active Yoli Mercado MD PhD Active LEVAQUIN 500 MG TABS 1 pill by mouth daily LEVO FLOXACIN 67550057581 No Longer Active Yoli Mercado MD PhD Active AMLODIPINE BESYLATE 5 MG TABS 1 tablet by mouth daily for bl ood pressure AMLODIPINE BESYLATE 11252083306 Active Keysha Jones MA Active MICARDIS 80 MG TABS 1 tablet daily for blood pressure TELMISARTAN 15042634490 Active Keysha Jones MA Active MICARDIS HCT 80-12.5 MG TABS 1 qd TELMISARTA N-HCTZ 27070473452 No Longer Active Bertrand Patel DO Active CINNAMON ALPHA LIPOIC AC CMPLX CAPS by mouth twice a d ay in AM by mouth twice a day in PM ALPHA LIPOIC UAQK-LO-RAYLQNAD CAPS 724977 76634 No Longer Active Bertrand Patel DO Active AZITHROMYCIN 500 MG SOLR 1 po q day AZITHROMYCI N 17667372661 No Longer Active Bertrand Patel DO Active CYMBALTA 30 MG CPEP 1 cap by mouth daily DULOXE CATHI HCL 04411921016 No Longer Active Bertrand Patel DO Active CYMBALTA 60 MG CPEP 1 cap by mouth daily DULOXE CATHI HCL 46702495421 Active Keysha Jones MA Active WELLBUTRIN 75 MG TABS 2 times daily BUPROPION H CL 13999104460 No Longer Active Bertrand Patle DO Active PROAIR HFA 108 (90 BASE) MCG/ACT AERS take one to two puffs po Q4-6 hour prn cough and shortness of breath ALBUTEROL SULFATE 3543482267 2 Active 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 repeat at 7 days PERMETHRIN 93744198125 No Longer Active Adolfo OSORIO Active AMOXICILLIN 500 MG CAPS 2 po BID x 10 days AMOX ICILLIN 86609331007 No Longer Active Yoli Mercado MD PhD Active ALPRAZOLAM 0.5 MG TAB 1 tab by mouth tid ALPRAZOL AM 44174986697 Active Nitza Mullins RPT,RMA Active INSUPEN ULTRAFIN 31G X 6 MM MISC USE DIRECTED 03/04 INSULIN PEN NEEDLE 98514426131 No Longer Active Bertrand Patel DO Active TRANSDERM-SCOP 1.5 MG PT72 1 patch applied behind ear q 3 day 20 04/13/28 SCOPOLAMINE BASE 48710300828 No Longer Active Bertrand Patel DO Active MACRODANTIN 100 MG CAPS one p.o. b.i.d. x2 weeks 03/04 NITROFURANTOIN MACROCRYSTAL 86335102531 No Longer Active Bertrand Patel DO Active MACRODANTIN 100 MG CAPS one p.o. b.i.d. x2 weeks 03/04 MACRODANTIN 100 MG CAPS 5110796 NITROFURANTOIN MACROCRYSTAL Inactive TRANSDERM-SCOP 1.5 MG PT72 [...] at 7 days PERMETHRIN 5 % CREA 379935 PERMETHRIN Inactive WELLBUTRIN 75 MG TABS 2 times daily WELLBUTRIN 75 MG TABS BUPROPION HCL Inactive CYMBALTA 30 MG CPEP 1 cap by mouth daily CYMBALTA 30 MG CPEP 491605 DULOXETINE HCL Inactive AZITHROMYCIN 500 MG SOLR 1 po q day ALTA THROMYCIN 500 MG SOLR 51067179755 AZITHROMYCIN Inactive CINNAMON ALPHA LIPOIC AC CMPLX CAPS by mouth twice a d ay in AM by mouth twice a day in PM CINNAMON ALPHA LIPOIC AC CMPLX CAPS ALPHA LIPOIC [id number] CAPS Inactive MICARDIS HCT 80-12.5 MG TABS 1 qd MICARDI S HCT 80-12.5 MG TABS 256312 TELMISARTAN-HCTZ Inactive PRAVASTATIN SODIUM 20 MG TABS 1 tablet by mouth daily at bedtime PRAVASTATIN SODIUM 20 MG TABS 406567 PRAVASTATIN SODIUM Inactive FUROSEMIDE 20 MG TABS 1 pill by mouth daily if needed for edema FUROSEMIDE 20 MG TABS 190712 FUROSEMIDE Inactive METFORMIN HCL 500 MG TABS 1 bid METFORMIN HCL 500 MG TABS 638849 METFORMIN HCL Inactive B-12 1000 MCG CAPS 1 tab daily B-12 1000 MCG CAP S CYANOCOBALAMIN Inactive VITAMIN E 200 UNIT CAPS 1 cap po qd VITAMIN E 2 00 UNIT CAPS 6197694 VITAMIN E Inactive [facility] MELATONIN 5-10 MG CR-TABS Take one by mouth daily at bedtime [facility] MELATONIN 5-10 MG CR-TABS MELATONIN-PYRIDOXI NE Inactive LORTAB 7.5-500 MG TABS take one po Q6 hours LORTAB 7.5-500 MG TABS HYDROCODONE-ACETAMINOPHEN Inactive AZITHROMYCIN 250 MG ORAL TABS Take 2 tabs po today then 1 ta b po daily AZITHROMYCIN 250 MG ORAL TABS 5467665 AZITHROMYCI N Inactive SYMBICORT 160-4.5 MCG/ACT AERO 2 puffs BID SYMBICORT 160- 4.5 MCG/ACT AERO BUDESONIDE-FORMOTEROL FUMARATE Inactive ALBUTEROL SULFATE 0.083 % NEBU SOLN one vial per nebul izer every 4-6 hours as needed ALBUTEROL SULFATE 0.083 % NEBU SOLN 93602 8 ALBUTEROL SULFATE Inactive NEBULIZER MISC use as directed NEBULIZER MISC NEBULIZERS Inactive TESSALON PERLES 100 MG CAP 1 tablet by mouth 3 times daily 07/07 TESSALON PERLES 100 MG CAP 978333 BENZONATATE Inact jairo CYCLOBENZAPRINE HCL 10 MG TABS Take 1 tab TID PRN for muscle pain CYCLOBENZAPRINE HCL 10 MG TABS 486682 CYCLOBENZAPRINE HCL Inactive AMOXICILLIN 500 MG CAPS 2 po BID x 10 days AMOXICILLIN 500 MG CAPS 800466 AMOXICILLIN Inactive AZITHROMYCIN 250 MG TABS take 2 po today then take 1 po days 2-5 AZITHROMYCIN 250 MG TABS 8821891 AZITHROMYCIN Inactiv e LEVAQUIN 500 MG TABS 1 pill by mouth daily LEVAQUIN 500 MG TABS 849484 LEVOFLOXACIN Inactive AUGMENTIN 875-125 MG TABS 1 pill by mouth twice daily AUGMENTIN 875-125 MG TABS 175628 AMOXICILLIN-POT CLAVULANATE Inacti ve AUGMENTIN 875-125 MG TAB 1 po BID x 10 days AUGMENTIN 875- 125 MG TAB 213891 AMOXICILLIN-POT CLAVULANATE Inactive PREDNISONE 20 MG TAB take 3 tabs daily for 3 days , 2 tabs daily for 3 days, 1 tab daily for 3 days, 1/2 tab daily for 3 days PREDNISONE 20 MG TAB 663062 PREDNISONE Inactive Vital Signs Date Name Value [...] 5.8 % 4.3-6.0 cholesterol, serum 200 mg/dL 034-972 2625/07/22 triglyceride, serum, fasting 56 mg/dL 30-200 HDL cholesterol, serum 80 mg/dL 32-96 LDL cholesterol, serum 109 mg/dL 0-130 albumin/creatinine ratio, urine < 30 mg/g mg/g{creat} 0-2 9 TSH 1.16 m[iU]/mL 0.36-3.74 sodium, serum 142 mmol/L 970-207 1794/07/22 carbon dioxide, venous blood 33.1 mmol/L 21.0-32 [...] Negative;Positive Encounters Code Encounter Date Provider Facility CPT-06546 Level 3 Est. Patient 10:04:13 CDT Bertrand marquez [facility] CPT-05784 Level 4 Est. Patient 16:02:10 CONSULTING SOLUTION MANAGER Dangelo BARAJAS [facility] CPT-47164 Level 3 Est. Patient 13:04:54 CONSULTING SOLUTION MANAGER Dangelo BARAJAS [facility]-28441 Level 3 Est. Patient 12:56:37 CDT Bertrand marquez [facility] CPT-04578 Level 3 Est. Patient 19:12:03 CDT Yoli tolbert MD [facility]-80053 Level 3 Est. Patient 14:36:01 CDT Yoli tolbert MD [facility]-73866 Level 2 Est. Patient 08:00:22 CDT Jcarlos dc MD [facility]-95205 Level 3 Est. Patient 19:06:55 CDT Bertrand marquez [facility]-36974 Level 3 Est. Patient 10:08:23 CONSULTING SOLUTION MANAGER Bertrand marquez [facility] CPT-02753 Level 3 Est. Patient 16:37:54 CONSULTING SOLUTION MANAGER Bertrand marquez [facility] CPT-41557 Level 3 Est. Patient 11:31:59 CONSULTING SOLUTION MANAGER Bertrand marquez [facility] CPT-87869 Level 3 Est. Patient 10:20:08 CDT Adolfo villasenor [facility]-31392 Level 3 Est. Patient 13:45:20 CDT Sanket buckley [facility] CPT-45649 Level 3 Est. Patient 12:51:06 CDT Adolfo villasenor [facility]-30800 Level 3 Est. Patient 11:22:51 CONSULTING SOLUTION MANAGER Yoli tolbert MD [facility]-99724 Level 3 Est. Patient 13:33:19 CDT Bertrand marquez [facility] Procedures Code Procedure Name Date Entry Date Standard Desc ription CPT-36616 Wound Culture - LAB USE ONLY 15:45:25 CDT 2 CPT-64608 Venipuncture Draw Fee 10:23:01 CDT CPT-J0696 Rocephin 1000 mg (Ceftriaxone) 16:20:30 CONSULTING SOLUTION MANAGER CPT-52229 Abx/Therapy Injection 16:20:29 CONSULTING SOLUTION MANAGER CPT-J0696 Rocephin 1gm Inj Solr 15:51:59 CONSULTING SOLUTION MANAGER CPT-88742 Chest 2V Frontal and Lat 15:20:28 CONSULTING SOLUTION MANAGER 07/22 CPT-32229 Breathing Tx 14:51:55 CONSULTING SOLUTION MANAGER CPT-88687 Breathing Tx 09:57:16 CONSULTING SOLUTION MANAGER CPT-41280 Knee comp 4/> V 11:58:06 CONSULTING SOLUTION MANAGER
--- OUTSIDE RECORDS SUMMARY | 2019-11-13 10:25 | XMS REPORT | Clinical Summary ---
Author Author Admin, Enrique Adamson Organization [facility] Address Unknown Phone Unavailable Allergies, Adverse [...] 09/09/28 EDEMA LEG ICD-782.3 Inactive Adele Feldman [employer]ERCIAL ANNOUNCER 201 01/01/02 SHORTNESS OF BREATH ICD-786.05 Inactive Yoli Mercado MD PhD RIB PAIN, RIGHT SIDED ICD-786.50 Inactive Yoli Mercado MD PhD KNEE PAIN, RIGHT ICD-719.46 Inactive Adele Esqueda ghn [employer] ANNOUNCER Knee pain, left ICD-719.46 Inactive Adele Holden hn COMMERCIAL ANNOUNCER Pharyngitis-Acute ICD-462 Inactive Bertrand Redmond DO Polyuria ICD-788.42 Inactive Yoli Mercado MD P hD Cellulitis, leg, right ICD-682.6 Inactive Yuki Deluna MD Foreign body, ear ICD-931 Inactive Yoli salazar MD PhD Fatigue ICD-780.79 Inactive Ike Deluna MD 201 12/01/06 Headache ICD-784.0 Inactive Adele Feldman COMMERCIAL ANNOUNCER 2017 Cough ICD-786.2 Inactive Adele Feldman COMMERCIAL ANNOUNCER 06/04 SINUSITIS, ACUTE ICD-461.9 Inactive Ike lange MD Fatigue ICD-780.79 Inactive Adele Feldman COMMERCIAL ANNOUNCER 2017 Bronchitis acute with bronchospasm ICD-466.0 I nactive Adele Feldman COMMERCIAL ANNOUNCER Animal bite ICD-919.8 Inactive Adele Feldman LP N Mycoplasma infection ICD-041.81 Inactive Anit a Feldman COMMERCIAL ANNOUNCER Amenorrhea, secondary ICD-626.0 Inactive Ani ta Feldman COMMERCIAL ANNOUNCER Medication List Medication Instructions Start Date Stop Date Generic Name NDC Status Provider Patient Instruction ADDERALL 10 MG ORAL TABLET 1 tab twice daily 2 AMPHETAMINE-DEXTROAMPHETAMINE 60147195751 No Longer Active Nitza Phi llips Scribe Active ZITHROMAX Z-MARTIN 250 MG ORAL TABLET 2 today and then 1 daily for 4 days AZITHROMYCIN 65600128207 No Longer Active Nitza Osman lips Scribe Active BENZONATATE 200 MG ORAL CAPSULE 1 three times a day as neede d for cough BENZONATATE 02985881312 No Longer Active Nitza Osman lips Scribe Active VITAMIN D3 68199 UNIT ORAL CAPSULE 1 pill Week x 4 mo nths for vitamin D deficiency/osteoporosis CHOLECALCIFEROL 87514886699 N o Longer Active Layla Mcmullen Active BACTROBAN 2 % EXTERNAL CREAM Apply to affected area BID for up to 10 days MUPIROCIN CALCIUM 81520406966 No Longer Active Ike Deluna MD Active CIPRO 500 MG ORAL TABLET 1 tablet by mouth twice daily CIPROFLOXACIN HCL 29205963101 No Longer Active Adriana Bender LPN Active AUGMENTIN 875-125 MG ORAL TABLET 1 po BID x 10 days 20 18/04/06 AMOXICILLIN-POT CLAVULANATE 19091041063 No Longer Active Adriana Bender LPN Active MODAFINIL 200 MG ORAL TABLET Take 1/2 tab po in the am and 1 /2 tab po at noon MODAFINIL 30390817153 Active Bertrand Patel DO Ac tive CYCLOBENZAPRINE HCL 10 MG ORAL TABLET Take 1 tab TID PRN for mus triston pain CYCLOBENZAPRINE HCL 38023047111 No Longer Active Bertrand Patel DO Active TESSALON PERLES 100 MG ORAL CAPSULE 1 tablet by mouth 3 times da juan pablo BENZONATATE 34978467443 No Longer Active Bertrand Patel DO Ac tive NEBULIZER use as directed NEBULIZERS 37182826629 No Longer Active Bertrand Patel DO Active ALBUTEROL SULFATE (2.5 MG/3ML) 0.083% INHALATION NEBUL IZATION SOLUTION one vial per nebulizer every 4-6 hours as needed ALBUTERO L SULFATE 95542596562 No Longer Active Bertrand Patel DO Active SYMBICORT 160-4.5 MCG/ACT INHALATION AEROSOL 2 puffs BID 9 BUDESONIDE-FORMOTEROL FUMARATE 24912200326 No Longer Active Bertrand Patel DO Active PREDNISONE 20 MG ORAL TABLET take 3 tabs daily for 3 d ays, 2 tabs daily for 3 days, 1 tab daily for 3 days, 1/2 tab daily for 3 days 08/02 PREDNISONE 60716325957 No Longer Active Silvia Arnold LAST SCOURER Acti ve AZITHROMYCIN 250 MG ORAL TABLET Take 2 tabs po today then 1 tab po daily AZITHROMYCIN 47136595623 No Longer Active Silvia Jorge gavin LAST SCOURER Active AUGMENTIN 875-125 MG ORAL TABLET 1 po BID x 10 days 20 19/07/13 AMOXICILLIN-POT CLAVULANATE 61302250799 No Longer Active Adriana Bender LPN Active CHEWABLE CALCIUM 500-200-40 MG-UNT-MCG ORAL TABLET CHEWABLE 1 chew tab bid CALCIUM-VITAMIN D-VITAMIN K 65939098045 Active Silvia nunes LAST SCOURER Active EQ COMPLETE MULTIVIT ADULT 50+ ORAL TABLET 1 tab po bid MULTIPLE VITAMINS-MINERALS 05594565211 Active Silvia Arnold LAST SCOURER Act jairo HYDROCODONE-ACETAMINOPHEN 7.5-325 MG ORAL TABLET TAKE ONE TAB EVERY 6 HOURS BY MOUTH NEEDED FOR PAIN HYDROCODONE-ACETAMINOPHEN 004 44283196 Active Adele Feldman COMMERCIAL ANNOUNCER Active LORTAB 7.5-500 MG ORAL TABLET take one po Q6 hours 201 09/12/01 HYDROCODONE-ACETAMINOPHEN 16042527199 No Longer Active Nirmal Robbins RN Active [facility] MELATONIN 5-10 MG ORAL TABLET EXTENDED RELEASE Jair e one by mouth daily at bedtime MELATONIN-PYRIDOXINE 85509663393 No Longer Acti ve Bertrand Patel DO Active VITAMIN E 200 UNIT ORAL CAPSULE 1 cap po qd VITAM IN E 86976152744 No Longer Active Bertrand Patel DO Active B-12 1000 MCG ORAL CAPSULE 1 tab daily CYANOCOB ALAMIN 07636813573 No Longer Active Bertrand Patel DO Active METFORMIN HCL 500 MG ORAL TABLET 1 bid METFOR MIN HCL 29736309365 No Longer Active Bertrand Patel DO Active FUROSEMIDE 20 MG ORAL TABLET 1 pill by mouth daily if needed for edema FUROSEMIDE 34999144751 No Longer Active Bertrand Patel DO Active PRAVASTATIN SODIUM 20 MG ORAL TABLET 1 tablet by mouth daily at bedtime PRAVASTATIN SODIUM 38037595166 No Longer Active Bertrand Patel DO Active AUGMENTIN 875-125 MG ORAL TABLET 1 pill by mouth twice daily 201 09/10/00 AMOXICILLIN-POT CLAVULANATE 64145054049 No Longer Active Yoli Mercado MD PhD Active LEVAQUIN 500 MG ORAL TABLET 1 pill by mouth daily 2013 LEVOFLOXACIN 79965279326 No Longer Active Yoli Mercado MD PhD Acti ve AMLODIPINE BESYLATE 5 MG ORAL TABLET 1 tablet by mouth daily for blood pressure AMLODIPINE BESYLATE 62325742061 Active Bertrand Patel DO Active MICARDIS 80 MG ORAL TABLET 1 tablet daily for blood pressure 07/30 TELMISARTAN 76291079194 Active Bertrand Patel DO Active MICARDIS HCT 80-12.5 MG ORAL TABLET 1 qd TELMISARTAN-HCTZ 35691117687 No Longer Active Bertrand Patel DO Active CINNAMON ALPHA LIPOIC AC CMPLX CAPSULE by mouth twice a day in AM by mouth twice a day in PM ALPHA LIPOIC [id number]-WSNAOPLO CA PS 84787727901 No Longer Active Bertrand Patel DO Active AZITHROMYCIN 500 MG INTRAVENOUS SOLUTION RECONSTITUTED 1 po q da y AZITHROMYCIN 59356683129 No Longer Active Bertrand Patel DO A ctive CYMBALTA 30 MG ORAL CAPSULE DELAYED RELEASE PARTICLES 1 cap by mouth daily DULOXETINE HCL 57844475651 No Longer Active Bertrand marquez DO Active CYMBALTA 60 MG ORAL CAPSULE DELAYED RELEASE PARTICLES 1 cap by mouth daily DULOXETINE HCL 88555894734 Active Bertrand Patel DO Active WELLBUTRIN 75 MG ORAL TABLET 2 times daily BUPR OPION HCL 83129745247 No Longer Active Bertrand Patel DO Active PROAIR HFA 108 (90 Base) MCG/ACT INHALATION AEROSOL SO LUTION take one to two puffs po Q4-6 hour prn cough and shortness of breath ALBUTEROL SULFATE 13931064681 Active Silvia Arnold APRN Active AZITHROMYCIN 250 MG ORAL TABLET take 2 po today then take 1 po days 2-5 AZITHROMYCIN 10753038447 No Longer Active Adolfo OSORIO Active PERMETHRIN 5 % EXTERNAL CREAM apply neck to toes tonig ht and then rinse off in morning. repeat at 7 days PERMETHRIN 97316046573 No Longer Active Adolfo OSORIO Active AMOXICILLIN 500 MG ORAL CAPSULE 2 po BID x 10 days 201 07/15/00 AMOXICILLIN 74276580357 No Longer Active Yoli Mercado MD PhD Acti ve ALPRAZOLAM 0.5 MG ORAL TABLET 1 tab by mouth tid ALPRAZOLAM 16850417274 Active Nitza Mullins LPN Active INSUPEN ULTRAFIN 31G X 6 MM USE DIRECTED INSULIN PEN NEEDLE 23135915675 No Longer Active Bertrand Patel DO Active TRANSDERM-SCOP (1.5 MG) 1 MG/3DAYS TRANSDERMAL PATCH 7 2 HOUR 1 patch applied behind ear q 3 day SCOPOLAMINE BASE 72524421237 No Lo nger Active Bertrand Patel DO Active MACRODANTIN 100 MG ORAL CAPSULE one p.o. b.i.d. x2 weeks NITROFURANTOIN MACROCRYSTAL 51335871759 No Longer Active Bertrand Patel DO Active MACRODANTIN 100 MG ORAL CAPSULE one p.o. b.i.d. x2 weeks MACRODANTIN 100 MG ORAL CAPSULE 3178414 NITROFURANTOIN MACROCRYSTAL Inactive TRANSDERM-SCOP (1.5 MG) 1 [...] days PERMETHRIN 5 % EXTER NAL CREAM 511492 PERMETHRIN Inactive WELLBUTRIN 75 MG ORAL TABLET 2 times daily WELLBUTRIN 75 MG ORAL TABLET 339126 BUPROPION HCL Inactive CYMBALTA 30 MG ORAL CAPSULE DELAYED RELEASE PARTICLES 1 cap by mouth daily CYMBALTA 30 MG ORAL CAPSULE DELAYED RELE ASE PARTICLES 004036 DULOXETINE HCL Inactive AZITHROMYCIN 500 MG INTRAVENOUS SOLUTION RECONSTITUTED 1 po q da y AZITHROMYCIN 500 MG INTRAVENOUS SOLUTION RECONSTITUTED 78849 435387 AZITHROMYCIN Inactive CINNAMON ALPHA LIPOIC AC CMPLX CAPSULE by mouth twice a day in AM by mouth twice a day in PM CINNAMON ALPHA LIPOIC AC CMPLX CAPSULE ALPHA LIPOIC [id number] CAPS Inactive MICARDIS HCT 80-12.5 MG ORAL TABLET 1 qd 07/30 MICARDIS HCT 80-12.5 MG ORAL TABLET 820678 TELMISARTAN-HCTZ Inactive PRAVASTATIN SODIUM 20 MG ORAL TABLET 1 tablet by mouth daily at bedtime PRAVASTATIN SODIUM 20 MG ORAL TABLET 630576 PRAVASTATIN SODIUM Inactive FUROSEMIDE 20 MG ORAL TABLET 1 pill by mouth daily if needed for edema FUROSEMIDE 20 MG ORAL TABLET 586664 FUROSEMIDE Inactive METFORMIN HCL 500 MG ORAL TABLET 1 bid METFORMIN HCL 500 MG ORAL TABLET 232993 METFORMIN HCL Inactive B-12 1000 MCG ORAL CAPSULE 1 tab daily B -12 1000 MCG ORAL CAPSULE CYANOCOBALAMIN Inactive VITAMIN E 200 UNIT ORAL CAPSULE 1 cap po qd 1 VITAMIN E 200 UNIT ORAL CAPSULE 4758185 VITAMIN E Inactive [facility] MELATONIN 5-10 MG ORAL TABLET EXTENDED RELEASE Jair e one by mouth daily at bedtime [facility] MELATONIN 5-10 M G ORAL TABLET EXTENDED RELEASE MELATONIN-PYRIDOXINE Inactive LORTAB 7.5-500 MG ORAL TABLET take one po Q6 hours 201 09/12/01 LORTAB 7.5-500 MG ORAL TABLET 962534 HYDROCODONE-ACETAMINOPHEN Inactive AZITHROMYCIN 250 MG ORAL TABLET Take 2 tabs po today then 1 tab po daily AZITHROMYCIN 250 MG ORAL TABLET 672353 AZITHROMY BERNARDO Inactive SYMBICORT 160-4.5 MCG/ACT INHALATION AEROSOL 2 puffs BID 9 SYMBICORT 160-4.5 MCG/ACT INHALATION AEROSOL BUDESONIDE-FORM OTEROL FUMARATE Inactive ALBUTEROL SULFATE (2.5 MG/3ML) 0.083% INHALATION NEBUL IZATION SOLUTION one vial per nebulizer every 4-6 hours as needed ALBUTEROL SULFATE (2.5 MG/3ML) 0.083% INHALATION NEBULIZATION SOLUTION 322469 ALBUTER OL SULFATE Inactive NEBULIZER use as directed NEBULIZER NEBULI ZERS Inactive TESSALON PERLES 100 MG ORAL CAPSULE 1 tablet by mouth 3 times da juan pablo TESSALON PERLES 100 MG ORAL CAPSULE 121305 BENZONATATE Inactive CYCLOBENZAPRINE HCL 10 MG ORAL TABLET Take 1 tab TID PRN for mus triston pain CYCLOBENZAPRINE HCL 10 MG ORAL TABLET 721752 CYCLOBENZA ANUJA HCL Inactive AUGMENTIN 875-125 MG ORAL TABLET 1 po BID x 10 days 20 18/04/06 AUGMENTIN 875-125 MG ORAL TABLET 863985 AMOXICILLIN-POT CLAVULANATE Inactive BACTROBAN 2 % EXTERNAL CREAM Apply to affected area BID for up to 10 days BACTROBAN 2 % EXTERNAL CREAM 505249 MUPIROCIN CA LCIUM Inactive VITAMIN D3 00611 UNIT ORAL CAPSULE 1 pill Week x 4 mo nths for vitamin D deficiency/osteoporosis VITAMIN D3 20234 UNIT ORAL CAPSULE CHOLECALCIFEROL Inactive BENZONATATE 200 MG ORAL CAPSULE 1 three times a day as neede d for cough BENZONATATE 200 MG ORAL CAPSULE 002459 BENZONATA TE Inactive ZITHROMAX Z-MARTIN 250 MG ORAL TABLET 2 today and then 1 daily for 4 days ZITHROMAX Z-MARTIN 250 MG ORAL TABLET 113068 AZITHR OMYCIN Inactive ADDERALL 10 MG ORAL TABLET 1 tab twice daily 2 ADDERALL 10 MG ORAL TABLET 927244 AMPHETAMINE-DEXTROAMPHETAMINE Inactive AMOXICILLIN 500 MG ORAL CAPSULE 2 po BID x 10 days 201 07/15/00 AMOXICILLIN 500 MG ORAL CAPSULE 859477 AMOXICILLIN Inactive AZITHROMYCIN 250 MG ORAL TABLET take 2 po today then take 1 po days 2-5 AZITHROMYCIN 250 MG ORAL TABLET 931394 AZITHROMY BERNARDO Inactive LEVAQUIN 500 MG ORAL TABLET 1 pill by mouth daily 2013 LEVAQUIN 500 MG ORAL TABLET 411141 LEVOFLOXACIN Inactive AUGMENTIN 875-125 MG ORAL TABLET 1 pill by mouth twice daily 201 09/10/00 AUGMENTIN 875-125 MG ORAL TABLET 704906 AMOXICILLIN-POT CLAVULANATE Inactive AUGMENTIN 875-125 MG ORAL TABLET 1 po BID x 10 days 19/07/13 AUGMENTIN 875-125 MG ORAL TABLET 182004 AMOXICILLIN-POT CLAVULANATE Inactive PREDNISONE 20 MG ORAL TABLET take 3 tabs daily for 3 d ays, 2 tabs daily for 3 days, 1 tab daily for 3 days, 1/2 tab daily for 3 days 08/02 PREDNISONE 20 MG ORAL TABLET 950961 PREDNISONE Inactive CIPRO 500 MG ORAL TABLET 1 tablet by mouth twice daily CIPRO 500 MG ORAL TABLET 482841 CIPROFLOXACIN HCL Inactive Vital Signs Date Name [...] BA1C - Chemistry sodium, serum 143 mmol/L 873-212 7095/01/02 carbon dioxide, venous blood 31.7 mmol/L 21.0-32 [...] 0-19 Encounters Code Encounter Date Provider Facility CPT-48829 Level 4 Est. Patient 15:33:35 NICKER AND BREAKER Bertrand marquez [facility] CPT-87353 Level 4 Est. Patient 12:31:54 CDT Bertrand marquez [facility] CPT-48941 Level 3 Est. Patient 11:27:00 NICKER AND BREAKER Ike Deluna MD [facility] CPT-84513 Level 3 Est. Patient 08:50:57 NICKER AND BREAKER Dangelo LAST SCOURER [facility] CPT-89166 Level 3 Est. Patient 10:04:13 CDT Bertrand marquez [facility] CPT-08797 Level 4 Est. Patient 16:02:10 NICKER AND BREAKER Dangelo LAST SCOURER [facility] CPT-81137 Level 3 Est. Patient 13:04:54 NICKER AND BREAKER Dangelo LAST SCOURER [facility] CPT-51246 Level 3 Est. Patient 12:56:37 CDT Bertrand marquez [facility] CPT-30243 Level 3 Est. Patient 19:12:03 CDT Yoli tolbert MD [facility] CPT-62299 Level 3 Est. Patient 14:36:01 CDT Yoli tolbert MD [facility] CPT-51290 Level 2 Est. Patient 08:00:22 CDT Jcarlos dc MD [facility] CPT-69799 Level 3 Est. Patient 19:06:55 CDT Bertrand marquez [facility] CPT-10487 Level 3 Est. Patient 10:08:23 NICKER AND BREAKER Bertrand marquez [facility] CPT-94691 Level 3 Est. Patient 16:37:54 NICKER AND BREAKER Bertrand marquez [facility] CPT-32970 Level 3 Est. Patient 11:31:59 NICKER AND BREAKER Bertrand marquez [facility] CPT-27598 Level 3 Est. Patient 10:20:08 CDT Adolfo villasenor [facility] CPT-97631 Level 3 Est. Patient 13:45:20 CDT Sanket buckley [facility] CPT-75096 Level 3 Est. Patient 12:51:06 CDT Adolfo villasenor [facility] CPT-99309 Level 3 Est. Patient 11:22:51 NICKER AND BREAKER Yoli tolbert MD [facility] CPT-11485 Level 3 Est. Patient 13:33:19 CDT Bertrand marquez [facility] Procedures Code Procedure Name Date Entry Date Standard Desc ription CPT-17158 Wound Culture - LAB USE ONLY 15:45:25 CDT 2 CPT-98975 Venipuncture Draw Fee 10:23:01 CDT CPT-J0696 Rocephin 1000 mg (Ceftriaxone) 16:20:30 [employer]ER [employer] BREAKER CPT-20446 Abx/Therapy Injection 16:20:29 NICKER AND BREAKER CPT-J0696 Rocephin 1gm Inj Solr 15:51:59 NICKER AND BREAKER CPT-11174 Chest 2V Frontal and Lat 15:20:28 NICKER AND BREAKER 07/22 CPT-15175 Breathing Tx 14:51:55 NICKER AND BREAKER CPT-06704 Breathing Tx 09:57:16 [employer]ER AND BREAKER CPT-00122 Knee comp 4/> V 11:58:06 NICKER AND BREAKER
--- OUTSIDE RECORDS SUMMARY | 2019-11-13 10:25 | XMS REPORT | Clinical Summary ---
Author Author Admin, Enrique Adamson Organization [employer] Address Unknown Phone Unavailable Allergies, Adverse Reactions, [...] NDC Status Provider Patient Instruction VITAMIN D3 16214 UNIT CAPS 1 pill Week x 4 months for vitamin D deficiency/osteoporosis CHOLECALCIFEROL 21224974580 Active Darlyn Monzon Active BENZONATATE 200 MG ORAL CAPS 1 three times a day as needed for c ough BENZONATATE 49379775576 Active Ike Deluna MD Acti ve ZITHROMAX Z-MARTIN 250 MG TABS 2 today and then 1 daily for 4 days 201 12/01/06 AZITHROMYCIN 80340718632 Active Ike Deluna MD Active ADDERALL 10 MG ORAL TABS 1 tab twice daily AMPHETAMINE-DEXTROAMPHETAMINE 38958565043 Active Ike Deluna MD Active BACTROBAN 2 % CREAM Apply to affected area BID for up to 10 days MUPIROCIN CALCIUM 12212129228 No Longer Active Ike Deluna MD Active CIPRO 500 MG TAB 1 tablet by mouth twice daily CIPROFLOXACIN HCL 67186413705 No Longer Active Adriana Bender LPN Active AUGMENTIN 875-125 MG TAB 1 po BID x 10 days AMOXICILLIN- POT CLAVULANATE 10234447498 No Longer Active Adriana Bender LPN Active MODAFINIL 200 MG ORAL TABS Take 1/2 tab po in the am and 1/2 tab po at noon MODAFINIL 43675764696 Active Darlyn Monzon A ctive CYCLOBENZAPRINE HCL 10 MG TABS Take 1 tab TID PRN for muscle pain CYCLOBENZAPRINE HCL 95430904526 No Longer Active Bertrand Patel DO Ac tive TESSALON PERLES 100 MG CAP 1 tablet by mouth 3 times daily 07/07 BENZONATATE 14981641146 No Longer Active Bertrand Patel DO Ac tive NEBULIZER MISC use as directed NEBULIZERS 680042 82496 No Longer Active Bertrand Patel DO Active ALBUTEROL SULFATE 0.083 % NEBU SOLN one vial per nebul izer every 4-6 hours as needed ALBUTEROL SULFATE 79031654989 No Longer Active Bertrand Patel DO Active SYMBICORT 160-4.5 MCG/ACT AERO 2 puffs BID BUDESONIDE- FORMOTEROL FUMARATE 82629396574 No Longer Active Bertrand Patel DO Ac tive PREDNISONE 20 MG TAB take 3 tabs daily for 3 days , 2 tabs daily for 3 days, 1 tab daily for 3 days, 1/2 tab daily for 3 days P REDNISONE 20538644840 No Longer Active Silvia Arnold APRN Active AZITHROMYCIN 250 MG ORAL TABS Take 2 tabs po today then 1 ta b po daily AZITHROMYCIN 43255923412 No Longer Active Silvia Jorge leslye TOVARN Active AUGMENTIN 875-125 MG TAB 1 po BID x 10 days AMOXICILLIN- POT CLAVULANATE 38475154748 No Longer Active Adriana Bender LPN Active CHEWABLE CALCIUM 500-200-40 MG-UNT-MCG ORAL CHEW 1 chew tab bid 201 11/03/03 CALCIUM-VITAMIN D-VITAMIN K 82014527666 Active Silvia Arnold APRN Active EQ COMPLETE MULTIVIT ADULT 50+ ORAL TABS 1 tab po bid MULTIPLE VITAMINS-MINERALS 09495062349 Active Silvia Arnold APRN Act jairo HYDROCODONE-ACETAMINOPHEN 7.5-325 MG TABS TAKE ONE TAB EVERY 6 HOURS BY MOUTH NEEDED FOR PAIN HYDROCODONE-ACETAMINOPHEN 94128920890 Acti ve Bertrand Patel DO Active LORTAB 7.5-500 MG TABS take one po Q6 hours HYDROCODONE-ACETAMINOPHEN No Longer Active Nirmal Robbins RN Active [facility] MELATONIN 5-10 MG CR-TABS Take one by mouth daily at bedtime MELATONIN-PYRIDOXINE 90496598193 No Longer Active Bertrand Patel DO Active VITAMIN E 200 UNIT CAPS 1 cap po qd VITAMIN E 316 68484575 No Longer Active Bertrand Patel DO Active B-12 1000 MCG CAPS 1 tab daily CYANOCOBALAMIN 31 433739556 No Longer Active Bertrand Patel DO Active METFORMIN HCL 500 MG TABS 1 bid METFORMIN HCL 76375093443 No Longer Active Bertrand Patel DO Active FUROSEMIDE 20 MG TABS 1 pill by mouth daily if needed for edema FUROSEMIDE 92615244993 No Longer Active Bertrand Patel DO Act jairo PRAVASTATIN SODIUM 20 MG TABS 1 tablet by mouth daily at bedtime PRAVASTATIN SODIUM 62946713134 No Longer Active Bertrand Patel DO Active AUGMENTIN 875-125 MG TABS 1 pill by mouth twice daily AMOXICILLIN-POT CLAVULANATE 75535183765 No Longer Active Yoli Mercado MD PhD Active LEVAQUIN 500 MG TABS 1 pill by mouth daily LEVO FLOXACIN 04168509234 No Longer Active Yoli Mercado MD PhD Active AMLODIPINE BESYLATE 5 MG TABS 1 tablet by mouth daily for bl ood pressure AMLODIPINE BESYLATE 86948694490 Active Darlyn Monzon Active MICARDIS 80 MG TABS 1 tablet daily for blood pressure TELMISARTAN 29170975387 Active Darlyn Monzon Active MICARDIS HCT 80-12.5 MG TABS 1 qd TELMISARTA N-HCTZ 93477192231 No Longer Active Bertrand Patel DO Active CINNAMON ALPHA LIPOIC AC CMPLX CAPS by mouth twice a d ay in AM by mouth twice a day in PM ALPHA LIPOIC [id number] CAPS 339174 36411 No Longer Active Bertrand Patel DO Active AZITHROMYCIN 500 MG SOLR 1 po q day AZITHROMYCI N 13992236214 No Longer Active Bertrand Patel DO Active CYMBALTA 30 MG CPEP 1 cap by mouth daily DULOXE CATHI HCL 84489236126 No Longer Active Bertrand Patel DO Active CYMBALTA 60 MG CPEP 1 cap by mouth daily DULOXE CATHI HCL 86448311919 Active Darlyn Monzon Active WELLBUTRIN 75 MG TABS 2 times daily BUPROPION H CL 19267973214 No Longer Active Bertrand W Jorge DO Active PROAIR HFA 108 (90 BASE) MCG/ACT AERS take one to two puffs po Q4-6 hour prn cough and shortness of breath ALBUTEROL SULFATE 8129677214 2 Active Silvia Arnold [employer]IPPER Active AZITHROMYCIN 250 MG TABS take 2 po today then take 1 po days 2-5 AZITHROMYCIN 50508491766 No Longer Active Adolfo OSORIO Active PERMETHRIN 5 % CREA apply neck to toes tonight a nd then rinse off in morning. repeat at 7 days PERMETHRIN 32753009976 No Longer Active Adolfo OSORIO Active AMOXICILLIN 500 MG CAPS 2 po BID x 10 days AMOX ICILLIN 14972973589 No Longer Active Yoli Mercado MD PhD Active ALPRAZOLAM 0.5 MG TAB 1 tab by mouth tid ALPRAZOL AM 45842934780 Active Nitza Mullins [employer] Active INSUPEN ULTRAFIN 31G X 6 MM MISC USE DIRECTED 03/04 INSULIN PEN NEEDLE 46774805226 No Longer Active Bertrand Patel DO Active TRANSDERM-SCOP 1.5 MG PT72 1 patch applied behind ear q 3 day 20 04/13/28 SCOPOLAMINE BASE 07214081104 No Longer Active Bertrand Patel DO Active MACRODANTIN 100 MG CAPS one p.o. b.i.d. x2 weeks 03/04 NITROFURANTOIN MACROCRYSTAL 31044476669 No Longer Active Bertrand Patel DO Active MACRODANTIN 100 MG CAPS one p.o. b.i.d. x2 weeks 03/04 MACRODANTIN 100 MG CAPS 0136162 NITROFURANTOIN MACROCRYSTAL Inactive TRANSDERM-SCOP 1.5 MG PT72 [...] at 7 days PERMETHRIN 5 % CREA 681957 PERMETHRIN Inactive WELLBUTRIN 75 MG TABS 2 times daily WELLBUTRIN 75 MG TABS 969873 BUPROPION HCL Inactive CYMBALTA 30 MG CPEP 1 cap by mouth daily CYMBALTA 30 MG CPEP 265748 DULOXETINE HCL Inactive AZITHROMYCIN 500 MG SOLR 1 po q day ALTA THROMYCIN 500 MG SOLR 90880174838 AZITHROMYCIN Inactive CINNAMON ALPHA LIPOIC AC CMPLX CAPS by mouth twice a d ay in AM by mouth twice a day in PM CINNAMON ALPHA LIPOIC AC CMPLX CAPS ALPHA LIPOIC [id number] CAPS Inactive MICARDIS HCT 80-12.5 MG TABS 1 qd MICARDI S HCT 80-12.5 MG TABS 626164 TELMISARTAN-HCTZ Inactive PRAVASTATIN SODIUM 20 MG TABS 1 tablet by mouth daily at bedtime PRAVASTATIN SODIUM 20 MG TABS 893105 PRAVASTATIN SODIUM Inactive FUROSEMIDE 20 MG TABS 1 pill by mouth daily if needed for edema FUROSEMIDE 20 MG TABS 295014 FUROSEMIDE Inactive METFORMIN HCL 500 MG TABS 1 bid METFORMIN HCL 500 MG TABS 920430 METFORMIN HCL Inactive B-12 1000 MCG CAPS 1 tab daily B-12 1000 MCG CAP S CYANOCOBALAMIN Inactive VITAMIN E 200 UNIT CAPS 1 cap po qd VITAMIN E 2 00 UNIT CAPS 4853429 VITAMIN E Inactive [facility] MELATONIN 5-10 MG CR-TABS Take one by mouth daily at bedtime [facility] MELATONIN 5-10 MG CR-TABS MELATONIN-PYRIDOXI NE Inactive LORTAB 7.5-500 MG TABS take one po Q6 hours LORTAB 7.5-500 MG TABS 365616 HYDROCODONE-ACETAMINOPHEN Inactive AZITHROMYCIN 250 MG ORAL TABS Take 2 tabs po today then 1 ta b po daily AZITHROMYCIN 250 MG ORAL TABS 407343 AZITHROMYCI N Inactive SYMBICORT 160-4.5 MCG/ACT AERO 2 puffs BID SYMBICORT 160- 4.5 MCG/ACT AERO BUDESONIDE-FORMOTEROL FUMARATE Inactive ALBUTEROL SULFATE 0.083 % NEBU SOLN one vial per nebul izer every 4-6 hours as needed ALBUTEROL SULFATE 0.083 % NEBU SOLN 98185 8 ALBUTEROL SULFATE Inactive NEBULIZER MISC use as directed NEBULIZER MISC NEBULIZERS Inactive TESSALON PERLES 100 MG CAP 1 tablet by mouth 3 times daily 07/07 TESSALON PERLES 100 MG CAP 309275 BENZONATATE Inact jairo CYCLOBENZAPRINE HCL 10 MG TABS Take 1 tab TID PRN for muscle pain CYCLOBENZAPRINE HCL 10 MG TABS 413988 CYCLOBENZAPRINE HCL Inactive AUGMENTIN 875-125 MG TAB 1 po BID x 10 days AUGMENTIN 875- 125 MG TAB 505277 AMOXICILLIN-POT CLAVULANATE Inactive BACTROBAN 2 % CREAM Apply to affected area BID for up to 10 days BACTROBAN 2 % CREAM 079257 MUPIROCIN CALCIUM Inactive AMOXICILLIN 500 MG CAPS 2 po BID x 10 days AMOXICILLIN 500 MG CAPS 479003 AMOXICILLIN Inactive AZITHROMYCIN 250 MG TABS take 2 po today then take 1 po days 2-5 AZITHROMYCIN 250 MG TABS 549902 AZITHROMYCIN Inactiv e LEVAQUIN 500 MG TABS 1 pill by mouth daily LEVAQUIN 500 MG TABS 723665 LEVOFLOXACIN Inactive AUGMENTIN 875-125 MG TABS 1 pill by mouth twice daily AUGMENTIN 875-125 MG TABS 880516 AMOXICILLIN-POT CLAVULANATE Inacti ve AUGMENTIN 875-125 MG TAB 1 po BID x 10 days AUGMENTIN 875- 125 MG TAB 270646 AMOXICILLIN-POT CLAVULANATE Inactive PREDNISONE 20 MG TAB take 3 tabs daily for 3 days , 2 tabs daily for 3 days, 1 tab daily for 3 days, 1/2 tab daily for 3 days PREDNISONE 20 MG TAB 567389 PREDNISONE Inactive CIPRO 500 MG TAB 1 tablet by mouth twice daily CIPRO 500 MG TAB 489453 CIPROFLOXACIN HCL Inactive Vital Signs Date Name [...] 0-19 Encounters Code Encounter Date Provider Facility CPT-31731 Level 4 Est. Patient 12:31:54 CDT Bertrand marquez [facility] CPT-11272 Level 3 Est. Patient 11:27:00 ENDOSCOPY TECHNICIAN Ike Deluna MD [facility]-67925 Level 3 Est. Patient 08:50:57 ENDOSCOPY TECHNICIAN Dangelo [employer] [facility]-14790 Level 3 Est. Patient 10:04:13 CDT Bertrand marquez [facility] CPT-48266 Level 4 Est. Patient 16:02:10 ENDOSCOPY TECHNICIAN Dangelo [employer] [facility]-45925 Level 3 Est. Patient 13:04:54 ENDOSCOPY TECHNICIAN Dangelo [facility]-70996 Level 3 Est. Patient 12:56:37 CDT Bertrand marquez [facility] CPT-13067 Level 3 Est. Patient 19:12:03 CDT Yoli tolbert MD [facility] CPT-45060 Level 3 Est. Patient 14:36:01 CDT Yoli tolbert MD [facility] CPT-37381 Level 2 Est. Patient 08:00:22 CDT Jcarlos dc MD [facility]-43928 Level 3 Est. Patient 19:06:55 CDT Bertrand marquez [facility] CPT-61506 Level 3 Est. Patient 10:08:23 ENDOSCOPY TECHNICIAN Bertrand marquez [facility]-18240 Level 3 Est. Patient 16:37:54 ENDOSCOPY TECHNICIAN Bertrand marquez [facility] CPT-30253 Level 3 Est. Patient 11:31:59 ENDOSCOPY TECHNICIAN Bertrand marquez [facility] CPT-16803 Level 3 Est. Patient 10:20:08 CDT Adolfo villasenor [facility] CPT-23068 Level 3 Est. Patient 13:45:20 CDT Sanket Pham ina [facility] CPT-85076 Level 3 Est. Patient 12:51:06 CDT Gennadot Jerzy villasenor [facility] CPT-26266 Level 3 Est. Patient 11:22:51 ENDOSCOPY TECHNICIAN Yoli tolbert MD PhD [facility] CPT-72835 Level 3 Est. Patient 13:33:19 CDT Bertrand marquez [facility] Procedures Code Procedure Name Date Entry Date Standard Desc ription CPT-66021 Wound Culture - LAB USE ONLY 15:45:25 CDT 2 CPT-51837 Venipuncture Draw Fee 10:23:01 CDT CPT-J0696 Rocephin 1000 mg (Ceftriaxone) 16:20:30 ENDOSCOPY TECHNICIAN CPT-45483 Abx/Therapy Injection 16:20:29 ENDOSCOPY TECHNICIAN CPT-J0696 Rocephin 1gm Inj Solr 15:51:59 ENDOSCOPY TECHNICIAN CPT-97672 Chest 2V Frontal and Lat 15:20:28 ENDOSCOPY TECHNICIAN 07/22 CPT-00742 Breathing Tx 14:51:55 ENDOSCOPY TECHNICIAN CPT-35961 Breathing Tx 09:57:16 ENDOSCOPY TECHNICIAN CPT-02547 Knee comp 4/> V 11:58:06 ENDOSCOPY TECHNICIAN
--- OUTSIDE RECORDS SUMMARY | 2019-11-13 10:25 | XMS REPORT | Clinical Summary ---
Author Author Admin, Enrique Adamson Organization [employer] Address Unknown Phone Unavailable Allergies, Adverse Reactions, [...] chest pain KNEE PAIN, RIGHT 719.46 Active Adlofo OSORIO Pain in joint involving lower leg [...] NDC Status Provider Patient Instruction VITAMIN D3 67978 UNIT CAPS 1 pill Week x 4 months for vitamin D deficiency/osteoporosis CHOLECALCIFEROL 52998446212 Active Darlyn Monzon Active BENZONATATE 200 MG ORAL CAPS 1 three times a day as needed for c ough BENZONATATE 74204921848 Active Ike Deluna MD Acti ve ZITHROMAX Z-MARTIN 250 MG TABS 2 today and then 1 daily for 4 days 201 12/01/06 AZITHROMYCIN 98708630711 Active Ike Deluna MD Active ADDERALL 10 MG ORAL TABS 1 tab twice daily AMPHETAMINE-DEXTROAMPHETAMINE 57199338384 Active Ike Deluna MD Active BACTROBAN 2 % CREAM Apply to affected area BID for up to 10 days MUPIROCIN CALCIUM 77140169368 No Longer Active Ike Deluna MD Active CIPRO 500 MG TAB 1 tablet by mouth twice daily CIPROFLOXACIN HCL 71744774963 No Longer Active Adriana Bender LPN Active AUGMENTIN 875-125 MG TAB 1 po BID x 10 days AMOXICILLIN- POT CLAVULANATE 29713220394 No Longer Active Adriana Bender LPN Active MODAFINIL 200 MG ORAL TABS Take 1/2 tab po in the am and 1/2 tab po at noon MODAFINIL 57928066780 Active Bertrand Patel DO Ac tive CYCLOBENZAPRINE HCL 10 MG TABS Take 1 tab TID PRN for muscle pain CYCLOBENZAPRINE HCL 33350279372 No Longer Active Bertrand Patel DO Ac tive TESSALON PERLES 100 MG CAP 1 tablet by mouth 3 times daily 07/07 BENZONATATE 36225969790 No Longer Active Bertrand Patel DO Ac tive NEBULIZER MISC use as directed NEBULIZERS 205222 65729 No Longer Active Bertrand Patel DO Active ALBUTEROL SULFATE 0.083 % NEBU SOLCammy one vial per nebul izer every 4-6 hours as needed ALBUTEROL SULFATE 75168165298 No Longer Active Bertrand Patel DO Active SYMBICORT 160-4.5 MCG/ACT AERO 2 puffs BID BUDESONIDE- FORMOTEROL FUMARATE 84222607772 No Longer Active Bertrand Patel DO Ac tive PREDNISONE 20 MG TAB take 3 tabs daily for 3 days , 2 tabs daily for 3 days, 1 tab daily for 3 days, 1/2 tab daily for 3 days P REDNISONE 59730860218 No Longer Active Silvia Arnold APRN Active AZITHROMYCIN 250 MG ORAL TABS Take 2 tabs po today then 1 ta b po daily AZITHROMYCIN 16866070253 No Longer Active Silvia Jorge leslye SURGICAL TRAINING SPECIALIST Active AUGMENTIN 875-125 MG TAB 1 po BID x 10 days AMOXICILLIN- POT CLAVULANATE 71143025906 No Longer Active Adriana Bender LPN Active CHEWABLE CALCIUM 500-200-40 MG-UNT-MCG ORAL CHEW 1 chew tab bid 201 11/03/03 CALCIUM-VITAMIN D-VITAMIN K 93357856796 Active Silvia Arnold APRN Active EQ COMPLETE MULTIVIT ADULT 50+ ORAL TABS 1 tab po bid MULTIPLE VITAMINS-MINERALS 29726507241 Active Silvia Arnlod APRN Act jairo HYDROCODONE-ACETAMINOPHEN 7.5-325 MG TABS TAKE ONE TAB EVERY 6 HOURS BY MOUTH NEEDED FOR PAIN HYDROCODONE-ACETAMINOPHEN 74559177130 Acti ve Bertrand Patel DO Active LORTAB 7.5-500 MG TABS take one po Q6 hours HYDROCODONE-ACETAMINOPHEN No Longer Active Nirmal Robbins RN Active [facility] MELATONIN 5-10 MG CR-TABS Take one by mouth daily at bedtime MELATONIN-PYRIDOXINE 99101244719 No Longer Active Bertrand Patel DO Active VITAMIN E 200 UNIT CAPS 1 cap po qd VITAMIN E 316 61811686 No Longer Active Bertrand Patel DO Active B-12 1000 MCG CAPS 1 tab daily CYANOCOBALAMIN 31 835465184 No Longer Active Bertrand Patel DO Active METFORMIN HCL 500 MG TABS 1 bid METFORMIN HCL 14290223881 No Longer Active Bertrand Patel DO Active FUROSEMIDE 20 MG TABS 1 pill by mouth daily if needed for edema FUROSEMIDE 13751835942 No Longer Active Bertrand Patel DO Act jairo PRAVASTATIN SODIUM 20 MG TABS 1 tablet by mouth daily at bedtime PRAVASTATIN SODIUM 64080122318 No Longer Active Bertrand Patel DO Active AUGMENTIN 875-125 MG TABS 1 pill by mouth twice daily AMOXICILLIN-POT CLAVULANATE 07144618463 No Longer Active Yoli Mercado MD PhD Active LEVAQUIN 500 MG TABS 1 pill by mouth daily LEVO FLOXACIN 34626091192 No Longer Active Yoli Mercado MD PhD Active AMLODIPINE BESYLATE 5 MG TABS 1 tablet by mouth daily for bl ood pressure AMLODIPINE BESYLATE 92454744359 Active Darlyn Monzon Active MICARDIS 80 MG TABS 1 tablet daily for blood pressure TELMISARTAN 92394098086 Active Bertrand Patel DO Active MICARDIS HCT 80-12.5 MG TABS 1 qd TELMISARTA N-HCTZ 68455263623 No Longer Active Bertrand Patel DO Active CINNAMON ALPHA LIPOIC AC CMPLX CAPS by mouth twice a d ay in AM by mouth twice a day in PM ALPHA LIPOIC FUGV-PX-PBAUXEVU CAPS 697207 44745 No Longer Active Bertrand Patel DO Active AZITHROMYCIN 500 MG SOLR 1 po q day AZITHROMYCI N 48459919115 No Longer Active Bertrand Patel DO Active CYMBALTA 30 MG CPEP 1 cap by mouth daily DULOXE CATHI HCL 77983732331 No Longer Active Bertrand Patel DO Active CYMBALTA 60 MG CPEP 1 cap by mouth daily DULOXE CATHI HCL 42196434013 Active Keysha Jones MA Active WELLBUTRIN 75 MG TABS 2 times daily BUPROPION H CL 67041551770 No Longer Active Bertrand W Jorge DO Active PROAIR HFA 108 (90 BASE) MCG/ACT AERS take one to two puffs po Q4-6 hour prn cough and shortness of breath ALBUTEROL SULFATE 2803678150 2 Active Silvia Arnold SURGICAL TRAINING SPECIALIST Active AZITHROMYCIN 250 MG TABS take 2 po today then take 1 po days 2-5 AZITHROMYCIN 33391676444 No Longer Active Adolfo OSORIO Active PERMETHRIN 5 % CREA apply neck to toes tonight a nd then rinse off in morning. repeat at 7 days PERMETHRIN 86970916497 No Longer Active Adolfo OSORIO Active AMOXICILLIN 500 MG CAPS 2 po BID x 10 days AMOX ICILLIN 80951098297 No Longer Active Yoli Mercado MD PhD Active ALPRAZOLAM 0.5 MG TAB 1 tab by mouth tid ALPRAZOL AM 78496316314 Active Nitza Mullins SCHOOL BASED THERAPIST Active INSUPEN ULTRAFIN 31G X 6 MM MISC USE DIRECTED 03/04 INSULIN PEN NEEDLE 87068261277 No Longer Active Bertrand Patel DO Active TRANSDERM-SCOP 1.5 MG PT72 1 patch applied behind ear q 3 day 20 04/13/28 SCOPOLAMINE BASE 45271549504 No Longer Active Bertrand Patel DO Active MACRODANTIN 100 MG CAPS one p.o. b.i.d. x2 weeks 03/04 NITROFURANTOIN MACROCRYSTAL 29148102059 No Longer Active Bertrand Patel DO Active MACRODANTIN 100 MG CAPS one p.o. b.i.d. x2 weeks 03/04 MACRODANTIN 100 MG CAPS 4448801 NITROFURANTOIN MACROCRYSTAL Inactive TRANSDERM-SCOP 1.5 MG PT72 [...] at 7 days PERMETHRIN 5 % CREA 757868 PERMETHRIN Inactive WELLBUTRIN 75 MG TABS 2 times daily WELLBUTRIN 75 MG TABS BUPROPION HCL Inactive CYMBALTA 30 MG CPEP 1 cap by mouth daily CYMBALTA 30 MG CPEP 231796 DULOXETINE HCL Inactive AZITHROMYCIN 500 MG SOLR 1 po q day ALTA THROMYCIN 500 MG SOLR 49935714366 AZITHROMYCIN Inactive CINNAMON ALPHA LIPOIC AC CMPLX CAPS by mouth twice a d ay in AM by mouth twice a day in PM CINNAMON ALPHA LIPOIC AC CMPLX CAPS ALPHA LIPOIC MHAS-BR-CMYTINZA CAPS Inactive MICARDIS HCT 80-12.5 MG TABS 1 qd MICARDI S HCT 80-12.5 MG TABS 332753 TELMISARTAN-HCTZ Inactive PRAVASTATIN SODIUM 20 MG TABS 1 tablet by mouth daily at bedtime PRAVASTATIN SODIUM 20 MG TABS 250737 PRAVASTATIN SODIUM Inactive FUROSEMIDE 20 MG TABS 1 pill by mouth daily if needed for edema FUROSEMIDE 20 MG TABS 975538 FUROSEMIDE Inactive METFORMIN HCL 500 MG TABS 1 bid METFORMIN HCL 500 MG TABS 885300 METFORMIN HCL Inactive B-12 1000 MCG CAPS 1 tab daily B-12 1000 MCG CAP S CYANOCOBALAMIN Inactive VITAMIN E 200 UNIT CAPS 1 cap po qd VITAMIN E 2 00 UNIT CAPS 0027474 VITAMIN E Inactive [facility] MELATONIN 5-10 MG CR-TABS Take one by mouth daily at bedtime [facility] MELATONIN 5-10 MG CR-TABS MELATONIN-PYRIDOXI NE Inactive LORTAB 7.5-500 MG TABS take one po Q6 hours LORTAB 7.5-500 MG TABS HYDROCODONE-ACETAMINOPHEN Inactive AZITHROMYCIN 250 MG ORAL TABS Take 2 tabs po today then 1 ta b po daily AZITHROMYCIN 250 MG ORAL TABS 1459009 AZITHROMYCI N Inactive SYMBICORT 160-4.5 MCG/ACT AERO 2 puffs BID SYMBICORT 160- 4.5 MCG/ACT AERO BUDESONIDE-FORMOTEROL FUMARATE Inactive ALBUTEROL SULFATE 0.083 % NEBU SOLN one vial per nebul izer every 4-6 hours as needed ALBUTEROL SULFATE 0.083 % NEBU SOLN 19438 8 ALBUTEROL SULFATE Inactive NEBULIZER MISC use as directed NEBULIZER MISC NEBULIZERS Inactive TESSALON PERLES 100 MG CAP 1 tablet by mouth 3 times daily 07/07 TESSALON PERLES 100 MG CAP 650243 BENZONATATE Inact jairo CYCLOBENZAPRINE HCL 10 MG TABS Take 1 tab TID PRN for muscle pain CYCLOBENZAPRINE HCL 10 MG TABS 375320 CYCLOBENZAPRINE HCL Inactive AUGMENTIN 875-125 MG TAB 1 po BID x 10 days AUGMENTIN 875- 125 MG TAB 787456 AMOXICILLIN-POT CLAVULANATE Inactive BACTROBAN 2 % CREAM Apply to affected area BID for up to 10 days BACTROBAN 2 % CREAM 070519 MUPIROCIN CALCIUM Inactive AMOXICILLIN 500 MG CAPS 2 po BID x 10 days AMOXICILLIN 500 MG CAPS 344111 AMOXICILLIN Inactive AZITHROMYCIN 250 MG TABS take 2 po today then take 1 po days 2-5 AZITHROMYCIN 250 MG TABS 6115039 AZITHROMYCIN Inactiv e LEVAQUIN 500 MG TABS 1 pill by mouth daily LEVAQUIN 500 MG TABS 949879 LEVOFLOXACIN Inactive AUGMENTIN 875-125 MG TABS 1 pill by mouth twice daily AUGMENTIN 875-125 MG TABS 524207 AMOXICILLIN-POT CLAVULANATE Inacti ve AUGMENTIN 875-125 MG TAB 1 po BID x 10 days AUGMENTIN 875- 125 MG TAB 624554 AMOXICILLIN-POT CLAVULANATE Inactive PREDNISONE 20 MG TAB take 3 tabs daily for 3 days , 2 tabs daily for 3 days, 1 tab daily for 3 days, 1/2 tab daily for 3 days PREDNISONE 20 MG TAB 767052 PREDNISONE Inactive CIPRO 500 MG TAB 1 tablet by mouth twice daily CIPRO 500 MG TAB 297098 CIPROFLOXACIN HCL Inactive Vital Signs Date Name [...] 4.3-6.0 Encounters Code Encounter Date Provider Facility CPT-13503 Level 4 Est. Patient 12:31:54 CDT Bertrand marquez [facility] CPT-56514 Level 3 Est. Patient 11:27:00 DIRECTOR OF PRODUCT DESIGN Ike Deluna MD [facility]-47984 Level 3 Est. Patient 08:50:57 DIRECTOR OF PRODUCT DESIGN Dangelo BARAJAS [facility] CPT-26509 Level 3 Est. Patient 10:04:13 CDT Bertrand marquez [facility]-41402 Level 4 Est. Patient 16:02:10 DIRECTOR OF PRODUCT DESIGN Dangelo SURGICAL TRAINING SPECIALIST [facility] CPT-41633 Level 3 Est. Patient 13:04:54 DIRECTOR OF PRODUCT DESIGN Dangelo SURGICAL TRAINING SPECIALIST [facility]-54239 Level 3 Est. Patient 12:56:37 CDT Bertrand marquez [facility] CPT-94834 Level 3 Est. Patient 19:12:03 CDT Yoli tolbert MD PhD [facility] CPT-80115 Level 3 Est. Patient 14:36:01 CDT Yoli tolbert MD [facility]-00779 Level 2 Est. Patient 08:00:22 CDT Jcarlos dc MD [facility]-40457 Level 3 Est. Patient 19:06:55 CDT Bertrand marquez [facility] CPT-74802 Level 3 Est. Patient 10:08:23 DIRECTOR OF PRODUCT DESIGN Bertrand marquez [facility]-34764 Level 3 Est. Patient 16:37:54 DIRECTOR OF PRODUCT DESIGN Bertrand marquez [facility] CPT-09429 Level 3 Est. Patient 11:31:59 DIRECTOR OF PRODUCT DESIGN Bertrand marquez [facility] CPT-82165 Level 3 Est. Patient 10:20:08 CDT Adolfo OSORIO [facility]-43584 Level 3 Est. Patient 13:45:20 CDT Sanket Ankit buckley [facility] CPT-07733 Level 3 Est. Patient 12:51:06 CDT Adolfo Monroyridge halljacklyn [facility] CPT-42579 Level 3 Est. Patient 11:22:51 DIRECTOR OF PRODUCT DESIGN Yoli tolbert MD PhD [facility] CPT-31268 Level 3 Est. Patient 13:33:19 CDT Bertrand Sabillon ee DO [facility] Procedures Code Procedure Name Date Entry Date Standard Desc ription CPT-03165 Wound Culture - LAB USE ONLY 15:45:25 CDT 2 CPT-56121 Venipuncture Draw Fee 10:23:01 CDT CPT-J0696 Rocephin 1000 mg (Ceftriaxone) 16:20:30 DIRECTOR OF PRODUCT DESIGN CPT-97616 Abx/Therapy Injection 16:20:29 DIRECTOR OF PRODUCT DESIGN CPT-J0696 Rocephin 1gm Inj Solr 15:51:59 DIRECTOR OF PRODUCT DESIGN CPT-33029 Chest 2V Frontal and Lat 15:20:28 DIRECTOR OF PRODUCT DESIGN 07/22 CPT-03082 Breathing Tx 14:51:55 DIRECTOR OF PRODUCT DESIGN CPT-68602 Breathing Tx 09:57:16 DIRECTOR OF PRODUCT DESIGN CPT-47446 Knee comp 4/> V 11:58:06 DIRECTOR OF PRODUCT DESIGN
--- OUTSIDE RECORDS SUMMARY | 2019-11-13 10:26 | XMS REPORT | Clinical Summary ---
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 Fatigue 780.79 Active Silvia Arnold [...] and 1/2 tab po at noon MODAFINIL 58040722237 Active Keysha Jones MA Active CYCLOBENZAPRINE HCL 10 MG TABS Take 1 tab TID PRN for muscle pain CYCLOBENZAPRINE HCL 55911474480 No Longer Active Bertrand Rowan tive TESSALON PERLES 100 MG CAP 1 tablet by mouth 3 times daily 07/07 BENZONATATE 70034260938 No Longer Active Bertrand Patel DO Ac tive NEBULIZER MISC use as directed NEBULIZERS 654971 82659 No Longer Active Bertrand Patel DO Active ALBUTEROL SULFATE 0.083 % NEBU SOLN one vial per nebul izer every 4-6 hours as needed ALBUTEROL SULFATE 39666783988 No Longer Active Bertrand Patel DO Active SYMBICORT 160-4.5 MCG/ACT AERO 2 puffs BID BUDESONIDE- FORMOTEROL FUMARATE 18194016444 No Longer Active Bertrand Patel DO Ac tive PREDNISONE 20 MG TAB take 3 tabs daily for 3 days , 2 tabs daily for 3 days, 1 tab daily for 3 days, 1/2 tab daily for 3 days P REDNISONE 51174310940 No Longer Active Silvia Arnold APRN Active AZITHROMYCIN 250 MG ORAL TABS Take 2 tabs po today then 1 ta b po daily AZITHROMYCIN 24713195962 No Longer Active Silvia Jorge gavin GROUNDSKEEPER SUPERVISOR Active AUGMENTIN 875-125 MG TAB 1 po BID x 10 days AMOXICILLIN- POT CLAVULANATE 66713791684 No Longer Active Adriana Bender LPN Active CHEWABLE CALCIUM 500-200-40 MG-UNT-MCG ORAL CHEW 1 chew tab bid 201 11/03/03 CALCIUM-VITAMIN D-VITAMIN K 21042806533 Active Silvia Arnold APRN Active EQ COMPLETE MULTIVIT ADULT 50+ ORAL TABS 1 tab po bid MULTIPLE VITAMINS-MINERALS 61445125271 Active Silvia Arnold APRN Act jairo HYDROCODONE-ACETAMINOPHEN 7.5-325 MG TABS TAKE ONE TAB EVERY 6 HOURS BY MOUTH NEEDED FOR PAIN HYDROCODONE-ACETAMINOPHEN 63247721107 Acti ve Bertrand Patel DO Active LORTAB 7.5-500 MG TABS take one po Q6 hours HYDROCODONE-ACETAMINOPHEN No Longer Active Nirmal Robbins RN Active [facility] MELATONIN 5-10 MG CR-TABS Take one by mouth daily at bedtime MELATONIN-PYRIDOXINE 01380816146 No Longer Active Bertrand Patel DO Active VITAMIN E 200 UNIT CAPS 1 cap po qd VITAMIN E 316 02282381 No Longer Active Bertrand Patel DO Active B-12 1000 MCG CAPS 1 tab daily CYANOCOBALAMIN 31 386418678 No Longer Active Bertrand Patel DO Active METFORMIN HCL 500 MG TABS 1 bid METFORMIN HCL 50953820157 No Longer Active Bertrand W Jorge DO Active FUROSEMIDE 20 MG TABS 1 pill by mouth daily if needed for edema FUROSEMIDE 19095132899 No Longer Active Bertrand Patel DO Act jairo PRAVASTATIN SODIUM 20 MG TABS 1 tablet by mouth daily at bedtime PRAVASTATIN SODIUM 45345778105 No Longer Active Bertrand Patel DO Active AUGMENTIN 875-125 MG TABS 1 pill by mouth twice daily AMOXICILLIN-POT CLAVULANATE 50044272297 No Longer Active Yoli Mercado MD PhD Active LEVAQUIN 500 MG TABS 1 pill by mouth daily LEVO FLOXACIN 10613023015 No Longer Active Yoli Mercado MD PhD Active AMLODIPINE BESYLATE 5 MG TABS 1 tablet by mouth daily for bl ood pressure AMLODIPINE BESYLATE 14976068786 Active Nitza Dorman PT,RMA Active MICARDIS 80 MG TABS 1 tablet daily for blood pressure TELMISARTAN 94112519248 Active Nitza Mullins RPT,RMA Active MICARDIS HCT 80-12.5 MG TABS 1 qd TELMISARTA N-HCTZ 47582404557 No Longer Active Bertrand Patel DO Active CINNAMON ALPHA LIPOIC AC CMPLX CAPS by mouth twice a d ay in AM by mouth twice a day in PM ALPHA LIPOIC HEUP-TG-GBBYNKER CAPS 214157 36690 No Longer Active Bertrand Patel DO Active AZITHROMYCIN 500 MG SOLR 1 po q day AZITHROMYCI N 67277591130 No Longer Active Bertrand Patel DO Active CYMBALTA 30 MG CPEP 1 cap by mouth daily DULOXE CATHI HCL 01670317205 No Longer Active Bertrand Patel DO Active CYMBALTA 60 MG CPEP 1 cap by mouth daily DULOXE CATHI HCL 57585143638 Active Nitza Mullins RPT,RMA Active WELLBUTRIN 75 MG TABS 2 times daily BUPROPION H CL 42187580383 No Longer Active Bertrand W Jorge DO Active PROAIR HFA 108 (90 BASE) MCG/ACT AERS take one to two puffs po Q4-6 hour prn cough and shortness of breath ALBUTEROL SULFATE 9863874739 2 Active Silvia Arnold GROUNDSKEEPER SUPERVISOR Active AZITHROMYCIN 250 MG TABS take 2 po today then take 1 po days 2-5 AZITHROMYCIN 52194161348 No Longer Active Adolfo OSORIO Active PERMETHRIN 5 % CREA apply neck to toes tonight a nd then rinse off in morning. repeat at 7 days PERMETHRIN 39937778354 No Longer Active Adolfo OSORIO Active AMOXICILLIN 500 MG CAPS 2 po BID x 10 days AMOX ICILLIN 36009872621 No Longer Active Yoli Mercado MD PhD Active ALPRAZOLAM 0.5 MG TAB 1 tab by mouth tid ALPRAZOL AM 30551735679 Active Nitza Mullins RPT,RMA Active INSUPEN ULTRAFIN 31G X 6 MM MISC USE DIRECTED 03/04 INSULIN PEN NEEDLE 74082874873 No Longer Active Bertrand Patel DO Active TRANSDERM-SCOP 1.5 MG PT72 1 patch applied behind ear q 3 day 20 04/13/28 SCOPOLAMINE BASE 77150630414 No Longer Active Bertrand Patel DO Active MACRODANTIN 100 MG CAPS one p.o. b.i.d. x2 weeks 03/04 NITROFURANTOIN MACROCRYSTAL 09816741236 No Longer Active Bertrand Patel DO Active MACRODANTIN 100 MG CAPS one p.o. b.i.d. x2 weeks 03/04 MACRODANTIN 100 MG CAPS 1751850 NITROFURANTOIN MACROCRYSTAL Inactive TRANSDERM-SCOP 1.5 MG PT72 [...] at 7 days PERMETHRIN 5 % CREA 924872 PERMETHRIN Inactive WELLBUTRIN 75 MG TABS 2 times daily WELLBUTRIN 75 MG TABS BUPROPION HCL Inactive CYMBALTA 30 MG CPEP 1 cap by mouth daily CYMBALTA 30 MG CPEP 401824 DULOXETINE HCL Inactive AZITHROMYCIN 500 MG SOLR 1 po q day ALTA THROMYCIN 500 MG SOLR 12314998918 AZITHROMYCIN Inactive CINNAMON ALPHA LIPOIC AC CMPLX CAPS by mouth twice a d ay in AM by mouth twice a day in PM CINNAMON ALPHA LIPOIC AC CMPLX CAPS ALPHA LIPOIC PXEA-VF-LEOYUTRI CAPS Inactive MICARDIS HCT 80-12.5 MG TABS 1 qd MICARDI S HCT 80-12.5 MG TABS 374536 TELMISARTAN-HCTZ Inactive PRAVASTATIN SODIUM 20 MG TABS 1 tablet by mouth daily at bedtime PRAVASTATIN SODIUM 20 MG TABS 600755 PRAVASTATIN SODIUM Inactive FUROSEMIDE 20 MG TABS 1 pill by mouth daily if needed for edema FUROSEMIDE 20 MG TABS 088086 FUROSEMIDE Inactive METFORMIN HCL 500 MG TABS 1 bid METFORMIN HCL 500 MG TABS 671703 METFORMIN HCL Inactive B-12 1000 MCG CAPS 1 tab daily B-12 1000 MCG CAP S CYANOCOBALAMIN Inactive VITAMIN E 200 UNIT CAPS 1 cap po qd VITAMIN E 2 00 UNIT CAPS 8302772 VITAMIN E Inactive [facility] MELATONIN 5-10 MG CR-TABS Take one by mouth daily at bedtime [facility] MELATONIN 5-10 MG CR-TABS MELATONIN-PYRIDOXI NE Inactive LORTAB 7.5-500 MG TABS take one po Q6 hours LORTAB 7.5-500 MG TABS HYDROCODONE-ACETAMINOPHEN Inactive AZITHROMYCIN 250 MG ORAL TABS Take 2 tabs po today then 1 ta b po daily AZITHROMYCIN 250 MG ORAL TABS 9144463 AZITHROMYCI N Inactive SYMBICORT 160-4.5 MCG/ACT AERO 2 puffs BID SYMBICORT 160- 4.5 MCG/ACT AERO BUDESONIDE-FORMOTEROL FUMARATE Inactive ALBUTEROL SULFATE 0.083 % NEBU SOLN one vial per nebul izer every 4-6 hours as needed ALBUTEROL SULFATE 0.083 % NEBU SOLN 58488 8 ALBUTEROL SULFATE Inactive NEBULIZER MISC use as directed NEBULIZER MISC NEBULIZERS Inactive TESSALON PERLES 100 MG CAP 1 tablet by mouth 3 times daily 07/07 TESSALON PERLES 100 MG CAP 990994 BENZONATATE Inact jairo CYCLOBENZAPRINE HCL 10 MG TABS Take 1 tab TID PRN for muscle pain CYCLOBENZAPRINE HCL 10 MG TABS 197953 CYCLOBENZAPRINE HCL Inactive AMOXICILLIN 500 MG CAPS 2 po BID x 10 days AMOXICILLIN 500 MG CAPS 704913 AMOXICILLIN Inactive AZITHROMYCIN 250 MG TABS take 2 po today then take 1 po days 2-5 AZITHROMYCIN 250 MG TABS 6356195 AZITHROMYCIN Inactiv e LEVAQUIN 500 MG TABS 1 pill by mouth daily LEVAQUIN 500 MG TABS 466797 LEVOFLOXACIN Inactive AUGMENTIN 875-125 MG TABS 1 pill by mouth twice daily AUGMENTIN 875-125 MG TABS 235267 AMOXICILLIN-POT CLAVULANATE Inacti ve AUGMENTIN 875-125 MG TAB 1 po BID x 10 days AUGMENTIN 875- 125 MG TAB 136248 AMOXICILLIN-POT CLAVULANATE Inactive PREDNISONE 20 MG TAB take 3 tabs daily for 3 days , 2 tabs daily for 3 days, 1 tab daily for 3 days, 1/2 tab daily for 3 days PREDNISONE 20 MG TAB 882286 PREDNISONE Inactive Vital Signs Date Name Value [...] 11 .6-14.8 platelet count 339 10^3/MM^3 10*3/mm3 981-975 6328/02/19 erythrocyte (RBC) count 3.95 10^6/MM^3 10*6/mm3 4.04-5.4 [...] 0.40 mg/dL 0.00-1.00 sodium, serum 142 mmol/L 634-351 5003/07/22 carbon dioxide, venous blood 33.1 mmol/L 21.0-32 .0 potassium, serum 4.6 mmol/L 3.5-5.2 chloride, serum 105 mmol/L 98-107 blood glucose 96 mg/dL 65-110 urea nitrogen, blood 16 mg/dL 7-18 creatinine, serum 0.69 mg/dL 0.55-1.30 alanine aminotransferase (SGPT), serum 22 U/L 12-78 aspartate aminotransferase (SGOT), serum 18 U/L 15-37 hemoglobin A1C, blood, as % of total hemoglobin 5.8 % 4.3-6.0 cholesterol, serum 200 mg/dL 105-990 4905/07/22 triglyceride, serum, fasting 56 mg/dL 30-200 HDL [...] Negative;Positive Encounters Code Encounter Date Provider Facility CPT-47586 Level 3 Est. Patient 10:04:13 CDT Bertrand marquez [employer] [facility] CPT-70352 Level 4 Est. Patient 16:02:10 TRAFFIC ASSISTANT Dangelo GROUNDSKEEPER SUPERVISOR Lizy [facility] CPT-91146 Level 3 Est. Patient 13:04:54 TRAFFIC ASSISTANT Dangelo GROUNDSKEEPER SUPERVISOR Lizy [facility] CPT-37781 Level 3 Est. Patient 12:56:37 CDT Bertradn marquez [employer] [facility] CPT-42504 Level 3 Est. Patient 19:12:03 CDT Yoli tolbert MD [facility] CPT-91964 Level 3 Est. Patient 14:36:01 CDT Yoli tolbert MD [facility] CPT-25402 Level 2 Est. Patient 08:00:22 CDT Jcarlos dc MD [facility] CPT-79783 Level 3 Est. Patient 19:06:55 CDT Bertrand marquez [facility] CPT-34646 Level 3 Est. Patient 10:08:23 TRAFFIC ASSISTANT Bertrand marquez [facility] CPT-89929 Level 3 Est. Patient 16:37:54 TRAFFIC ASSISTANT Bertrand marquez [facility] CPT-47235 Level 3 Est. Patient 11:31:59 TRAFFIC ASSISTANT Bertrand marquez [facility] CPT-06342 Level 3 Est. Patient 10:20:08 CDT Adolfo villasenor [facility] CPT-11302 Level 3 Est. Patient 13:45:20 CDT Sanket buckley [facility] CPT-35028 Level 3 Est. Patient 12:51:06 CDT Adolfo villasenor [facility] CPT-46888 Level 3 Est. Patient 11:22:51 TRAFFIC ASSISTANT Yoli tolbert MD [facility] CPT-79470 Level 3 Est. Patient 13:33:19 CDT Bertrand marquez [facility] Procedures Code Procedure Name Date Entry Date Standard Desc ription CPT-95804 Venipuncture Draw Fee 10:23:01 CDT CPT-J0696 Rocephin 1000 mg (Ceftriaxone) 16:20:30 TRAFFIC ASSISTANT CPT-61928 Abx/Therapy Injection 16:20:29 TRAFFIC ASSISTANT CPT-J0696 Rocephin 1gm Inj Solr 15:51:59 TRAFFIC ASSISTANT CPT-49831 Chest 2V Frontal and Lat 15:20:28 TRAFFIC ASSISTANT 07/22 CPT-08764 Breathing Tx 14:51:55 TRAFFIC ASSISTANT CPT-25405 Breathing Tx 09:57:16 TRAFFIC ASSISTANT CPT-76153 Knee comp 4/> V 11:58:06 TRAFFIC ASSISTANT
--- OUTSIDE RECORDS SUMMARY | 2019-11-13 10:26 | XMS REPORT | Clinical Summary ---
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 Fatigue 780.79 Active Silvia [...] to 10 days 20 18/03/27 MUPIROCIN CALCIUM 10695274819 Active Silvia Arnold APRN Act jairo AUGMENTIN 875-125 MG TAB 1 po BID x 10 days AMOXICILLIN- POT CLAVULANATE 08950726518 Active Silvia Arnold APRN Activ e MODAFINIL 200 MG ORAL TABS Take 1/2 tab po in the am and 1/2 tab po at noon MODAFINIL 00510065580 Active Silvia Arnold APRN Active CYCLOBENZAPRINE HCL 10 MG TABS Take 1 tab TID PRN for muscle pain CYCLOBENZAPRINE HCL 72425264360 No Longer Active Bertrand Patel DO Ac tive TESSALON PERLES 100 MG CAP 1 tablet by mouth 3 times daily 07/07 BENZONATATE 55032164323 No Longer Active Bertrand Patel DO Ac tive NEBULIZER MISC use as directed NEBULIZERS 273162 70768 No Longer Active Bertrand Patel DO Active ALBUTEROL SULFATE 0.083 % NEBU SOLN one vial per nebul izer every 4-6 hours as needed ALBUTEROL SULFATE 54112632562 No Longer Active Bertrand Patel DO Active SYMBICORT 160-4.5 MCG/ACT AERO 2 puffs BID BUDESONIDE- FORMOTEROL FUMARATE 36194730821 No Longer Active Bertrand Patel DO Ac tive PREDNISONE 20 MG TAB take 3 tabs daily for 3 days , 2 tabs daily for 3 days, 1 tab daily for 3 days, 1/2 tab daily for 3 days P REDNISONE 60086563784 No Longer Active Silvia Arnold APRN Active AZITHROMYCIN 250 MG ORAL TABS Take 2 tabs po today then 1 ta b po daily AZITHROMYCIN 54007534833 No Longer Active Silvia gavin APRN Active AUGMENTIN 875-125 MG TAB 1 po BID x 10 days AMOXICILLIN- POT CLAVULANATE 87063240118 No Longer Active Adriana Bender LPN Active CHEWABLE CALCIUM 500-200-40 MG-UNT-MCG ORAL CHEW 1 chew tab bid 201 11/03/03 CALCIUM-VITAMIN D-VITAMIN K 82601707210 Active Silvia Arnold APRN Active EQ COMPLETE MULTIVIT ADULT 50+ ORAL TABS 1 tab po bid MULTIPLE VITAMINS-MINERALS 13393963280 Active Silvia Arnold APRN Act jairo HYDROCODONE-ACETAMINOPHEN 7.5-325 MG TABS TAKE ONE TAB EVERY 6 HOURS BY MOUTH NEEDED FOR PAIN HYDROCODONE-ACETAMINOPHEN 64812324131 Acti raheel العلي Active LORTAB 7.5-500 MG TABS take one po Q6 hours HYDROCODONE-ACETAMINOPHEN No Longer Active Nirmal Robbins RN Active [facility] MELATON[facility] 5-10 MG CR-TABS Take one by mouth daily at bedtime MELATONIN-PYRIDOXINE 57532947531 No Longer Active Bertrand Patel DO Active VITAMIN E 200 UNIT CAPS 1 cap po qd VITAMIN E 316 38589738 No Longer Active Bertrand Patel DO Active B-12 1000 MCG CAPS 1 tab daily CYANOCOBALAMIN 31 179134943 No Longer Active Bertrand Patel DO Active METFORMIN HCL 500 MG TABS 1 bid METFORMIN HCL 89443177330 No Longer Active Bertrand Patel DO Active FUROSEMIDE 20 MG TABS 1 pill by mouth daily if needed for edema FUROSEMIDE 47036699370 No Longer Active Bertrand Patel DO Act jairo PRAVASTATIN SODIUM 20 MG TABS 1 tablet by mouth daily at bedtime PRAVASTATIN SODIUM 49622281290 No Longer Active Bertrand Patel DO Active AUGMENTIN 875-125 MG TABS 1 pill by mouth twice daily AMOXICILLIN-POT CLAVULANATE 00410869685 No Longer Active Yoli Mercado MD PhD Active LEVAQUIN 500 MG TABS 1 pill by mouth daily LEVO FLOXACIN 20853213607 No Longer Active Yoli Mercado MD PhD Active AMLODIPINE BESYLATE 5 MG TABS 1 tablet by mouth daily for bl ood pressure AMLODIPINE BESYLATE 46665540025 Active Keysha Jones MA Active MICARDIS 80 MG TABS 1 tablet daily for blood pressure TELMISARTAN 40427598008 Active Keysha Jones MA Active MICARDIS HCT 80-12.5 MG TABS 1 qd TELMISARTA N-HCTZ 96421569566 No Longer Active Bertrand Patel DO Active CINNAMON ALPHA LIPOIC AC CMPLX CAPS by mouth twice a d ay in AM by mouth twice a day in PM ALPHA LIPOIC [id number] CAPS 536071 80257 No Longer Active Bertrand Patel DO Active AZITHROMYCIN 500 MG SOLR 1 po q day AZITHROMYCI N 02240007601 No Longer Active Bertrand Ptael DO Active CYMBALTA 30 MG CPEP 1 cap by mouth daily DULOXE CATHI HCL 26343267784 No Longer Active Bertrand Patel DO Active CYMBALTA 60 MG CPEP 1 cap by mouth daily DULOXE CATHI HCL 16591546416 Active Keysha Jones MA Active WELLBUTRIN 75 MG TABS 2 times daily BUPROPION H CL 48936054235 No Longer Active Bertrand Patel DO Active PROAIR HFA 108 (90 BASE) MCG/ACT AERS take one to two puffs po Q4-6 hour prn cough and shortness of breath ALBUTEROL SULFATE 4571442626 2 Active Silvia Arnold AUTOMAT WATCHER Active AZITHROMYCIN 250 MG TABS take 2 po today then take 1 po days 2-5 AZITHROMYCIN 16779872477 No Longer Active Adolfo OSORIO Active PERMETHRIN 5 % CREA apply neck to toes tonight a nd then rinse off in morning. repeat at 7 days PERMETHRIN 88595855372 No Longer Active Adolfo OSORIO Active AMOXICILLIN 500 MG CAPS 2 po BID x 10 days AMOX ICILLIN 06666862938 No Longer Active Yoli Mercado MD PhD Active ALPRAZOLAM 0.5 MG TAB 1 tab by mouth tid ALPRAZOL AM 33712861747 Active Nitza Mullins RPT,RMA Active INSUPEN ULTRAFIN 31G X 6 MM MISC USE DIRECTED 03/04 INSULIN PEN NEEDLE 58626388431 No Longer Active Bertrand Patel DO Active TRANSDERM-SCOP 1.5 MG PT72 1 patch applied behind ear q 3 day 20 04/13/28 SCOPOLAMINE BASE 79686389474 No Longer Active Bertrand Patel DO Active MACRODANTIN 100 MG CAPS one p.o. b.i.d. x2 weeks 03/04 NITROFURANTOIN MACROCRYSTAL 88953484550 No Longer Active Bertrand Patel DO Active MACRODANTIN 100 MG CAPS one p.o. b.i.d. x2 weeks 03/04 MACRODANTIN 100 MG CAPS 0188503 NITROFURANTOIN MACROCRYSTAL Inactive TRANSDERM-SCOP 1.5 MG PT72 [...] at 7 days PERMETHRIN 5 % CREA 356813 PERMETHRIN Inactive WELLBUTRIN 75 MG TABS 2 times daily WELLBUTRIN 75 MG TABS BUPROPION HCL Inactive CYMBALTA 30 MG CPEP 1 cap by mouth daily CYMBALTA 30 MG CPEP 166223 DULOXETINE HCL Inactive AZITHROMYCIN 500 MG SOLR 1 po q day ALTA THROMYCIN 500 MG SOLR 15214429905 AZITHROMYCIN Inactive CINNAMON ALPHA LIPOIC AC CMPLX CAPS by mouth twice a d ay in AM by mouth twice a day in PM CINNAMON ALPHA LIPOIC AC CMPLX CAPS ALPHA LIPOIC REON-OH-CGKFGFAW CAPS Inactive MICARDIS HCT 80-12.5 MG TABS 1 qd MICARDI S HCT 80-12.5 MG TABS 240415 TELMISARTAN-HCTZ Inactive PRAVASTATIN SODIUM 20 MG TABS 1 tablet by mouth daily at bedtime PRAVASTATIN SODIUM 20 MG TABS 042575 PRAVASTATIN SODIUM Inactive FUROSEMIDE 20 MG TABS 1 pill by mouth daily if needed for edema FUROSEMIDE 20 MG TABS 043520 FUROSEMIDE Inactive METFORMIN HCL 500 MG TABS 1 bid METFORMIN HCL 500 MG TABS 887549 METFORMIN HCL Inactive B-12 1000 MCG CAPS 1 tab daily B-12 1000 MCG CAP S CYANOCOBALAMIN Inactive VITAMIN E 200 UNIT CAPS 1 cap po qd VITAMIN E 2 00 UNIT CAPS 9457408 VITAMIN E Inactive [facility] MELATONIN 5-10 MG CR-TABS Take one by mouth daily at bedtime [facility] MELATONIN 5-10 MG CR-TABS MELATONIN-PYRIDOXI NE Inactive LORTAB 7.5-500 MG TABS take one po Q6 hours LORTAB 7.5-500 MG TABS HYDROCODONE-ACETAMINOPHEN Inactive AZITHROMYCIN 250 MG ORAL TABS Take 2 tabs po today then 1 ta b po daily AZITHROMYCIN 250 MG ORAL TABS 6859833 AZITHROMYCI N Inactive SYMBICORT 160-4.5 MCG/ACT AERO 2 puffs BID SYMBICORT 160- 4.5 MCG/ACT AERO BUDESONIDE-FORMOTEROL FUMARATE Inactive ALBUTEROL SULFATE 0.083 % NEBU SOLN one vial per nebul izer every 4-6 hours as needed ALBUTEROL SULFATE 0.083 % NEBU SOLN 90330 8 ALBUTEROL SULFATE Inactive NEBULIZER MISC use as directed NEBULIZER MISC NEBULIZERS Inactive TESSALON PERLES 100 MG CAP 1 tablet by mouth 3 times daily 07/07 TESSALON PERLES 100 MG CAP 323866 BENZONATATE Inact jairo CYCLOBENZAPRINE HCL 10 MG TABS Take 1 tab TID PRN for muscle pain CYCLOBENZAPRINE HCL 10 MG TABS 983381 CYCLOBENZAPRINE HCL Inactive AMOXICILLIN 500 MG CAPS 2 po BID x 10 days AMOXICILLIN 500 MG CAPS 359234 AMOXICILLIN Inactive AZITHROMYCIN 250 MG TABS take 2 po today then take 1 po days 2-5 AZITHROMYCIN 250 MG TABS 2927043 AZITHROMYCIN Inactiv e LEVAQUIN 500 MG TABS 1 pill by mouth daily LEVAQUIN 500 MG TABS 277911 LEVOFLOXACIN Inactive AUGMENTIN 875-125 MG TABS 1 pill by mouth twice daily AUGMENTIN 875-125 MG TABS 869827 AMOXICILLIN-POT CLAVULANATE Inacti ve AUGMENTIN 875-125 MG TAB 1 po BID x 10 days AUGMENTIN 875- 125 MG TAB 924258 AMOXICILLIN-POT CLAVULANATE Inactive PREDNISONE 20 MG TAB take 3 tabs daily for 3 days , 2 tabs daily for 3 days, 1 tab daily for 3 days, 1/2 tab daily for 3 days PREDNISONE 20 MG TAB 684210 PREDNISONE Inactive Vital Signs Date Name Value [...] Description Lab Report: CBC W/DIFF - Hematology erythrocyte (RBC) count 3.95 10^6/MM^3 10*6/mm3 4.04-5.4 8 hemoglobin, blood 12.5 g/dL 12.0-16.0 hematocrit, blood 37.4 % 36.0-46.0 mean corpuscular volume, RBC 95 fL 80-97 mean corpuscular hemoglobin, RBC 31.6 pg 27. 0-31.2 mean corpuscular hemoglobin concentration, RBC 33.3 G/DL % 31.8-35.4 red blood cell distribution width 14.6 % 11 .6-14.8 platelet count 339 10^3/MM^3 10*3/mm3 008-742 2754/02/19 lymphocytes as percent of blood leukocytes 39.3 [...] 1.16 m[iU]/mL 0.36-3.74 sodium, serum 142 mmol/L 193-224 0555/07/22 carbon dioxide, venous blood 33.1 mmol/L 21.0-32 .0 potassium, serum 4.6 mmol/L 3.5-5.2 chloride, serum 105 mmol/L 98-107 blood glucose 96 mg/dL 65-110 urea nitrogen, blood 16 mg/dL 7-18 creatinine, serum 0.69 mg/dL 0.55-1.30 alanine aminotransferase (SGPT), serum 22 U/L 12-78 aspartate aminotransferase (SGOT), serum 18 U/L 15-37 calcium, serum 8.7 mg/dL 8.5-10.1 bilirubin, serum, total 0.40 mg/dL 0.00-1.00 cholesterol, serum 200 mg/dL 344-947 5636/07/22 triglyceride, serum, fasting 56 mg/dL 30-200 HDL [...] Negative;Positive Encounters Code Encounter Date Provider Facility CPT-60556 Level 3 Est. Patient 10:04:13 CDT Bertrand marquez [facility] CPT-84184 Level 4 Est. Patient 16:02:10 ANIMAL CONTROL LICENSING WORKER Dangelo BARAJAS [facility] CPT-47853 Level 3 Est. Patient 13:04:54 ANIMAL CONTROL LICENSING WORKER Dangelo BARAJAS [facility]-65428 Level 3 Est. Patient 12:56:37 CDT Bertrand marquez [facility] CPT-18505 Level 3 Est. Patient 19:12:03 CDT Yoli tolbert MD [facility]-82030 Level 3 Est. Patient 14:36:01 CDT Yoli tolbert MD [facility]-35221 Level 2 Est. Patient 08:00:22 CDT Jcarlos dc MD [facility]-78026 Level 3 Est. Patient 19:06:55 CDT Bertrand marquez [facility]-53787 Level 3 Est. Patient 10:08:23 ANIMAL CONTROL LICENSING WORKER Bertrand marquez [facility] CPT-49785 Level 3 Est. Patient 16:37:54 ANIMAL CONTROL LICENSING WORKER Bertrand marquez [facility] CPT-72318 Level 3 Est. Patient 11:31:59 ANIMAL CONTROL LICENSING WORKER Bertrand marquez [facility] CPT-38922 Level 3 Est. Patient 10:20:08 CDT Adolfo villasenor [facility]-52964 Level 3 Est. Patient 13:45:20 CDT Sanket buckley [facility] CPT-17963 Level 3 Est. Patient 12:51:06 CDT Adolfo villasenor [facility]-80768 Level 3 Est. Patient 11:22:51 ANIMAL CONTROL LICENSING WORKER Yoli tolbert MD [facility]-63882 Level 3 Est. Patient 13:33:19 CDT Bertrand marquez [facility] Procedures Code Procedure Name Date Entry Date Standard Desc ription CPT-18606 Wound Culture - LAB USE ONLY 15:45:25 CDT 2 CPT-34911 Venipuncture Draw Fee 10:23:01 CDT CPT-J0696 Rocephin 1000 mg (Ceftriaxone) 16:20:30 ANIMAL CONTROL LICENSING WORKER CPT-29814 Abx/Therapy Injection 16:20:29 ANIMAL CONTROL LICENSING WORKER CPT-J0696 Rocephin 1gm Inj Solr 15:51:59 ANIMAL CONTROL LICENSING WORKER CPT-26204 Chest 2V Frontal and Lat 15:20:28 ANIMAL CONTROL LICENSING WORKER 07/22 CPT-53053 Breathing Tx 14:51:55 ANIMAL CONTROL LICENSING WORKER CPT-72006 Breathing Tx 09:57:16 ANIMAL CONTROL LICENSING WORKER CPT-03993 Knee comp 4/> V 11:58:06 ANIMAL CONTROL LICENSING WORKER
--- OUTSIDE RECORDS SUMMARY | 2019-11-13 10:26 | XMS REPORT | Clinical Summary ---
Author Author Admin, Enrique Adamson Organization 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 sinusitis, unspecified Fatigue 780.79 Active Silvia [...] tab daily for 3 days P REDNISONE 50815430716 No Longer Active Silvia Arnold APRN Active SYMBICORT 160-4.5 MCG/ACT AERO 2 puffs BID BUDESONIDE-FORMOTEROL FUMARATE 64813464125 Active Silvia Arnold APRN Active ALBUTEROL SULFATE 0.083 % NEBU SOLN one vial per nebul izer every 4-6 hours as needed ALBUTEROL SULFATE 24584916404 Active Silvia Arnold APRN Active NEBULIZER MISC use as directed NEBULIZERS 36280711150 Active Silvia Arnold APRN Active AZITHROMYCIN 250 MG ORAL TABS Take 2 tabs po today then 1 ta b po daily AZITHROMYCIN 77916382325 No Longer Active Silvia gavin APRN Active AUGMENTIN 875-125 MG TAB 1 po BID x 10 days AMOXICILLIN- POT CLAVULANATE 60151584383 No Longer Active Adriana Whittley, SOFTWARE ENGINEERING SPECIALIST Active TESSALON PERLES 100 MG CAP 1 tablet by mouth 3 times daily BENZONATATE 21895612822 Active Silvia Arnold APRN Active CHEWABLE CALCIUM 500-200-40 MG-UNT-MCG ORAL CHEW 1 chew tab bid 201 11/03/03 CALCIUM-VITAMIN D-VITAMIN K 19226521614 Active Silviakelvin Arnold APRN Active EQ COMPLETE MULTIVIT ADULT 50+ ORAL TABS 1 tab po bid MULTIPLE VITAMINS-MINERALS 55025425556 Active Silvia Arnold APRN Act jairo HYDROCODONE-ACETAMINOPHEN 7.5-325 MG TABS TAKE ONE TAB EVERY 6 HOURS BY MOUTH NEEDED FOR PAIN HYDROCODONE-ACETAMINOPHEN 80665579115 Acti ve Bertrand Patel DO Active LORTAB 7.5-500 MG TABS take one po Q6 hours HYDROCODONE-ACETAMINOPHEN No Longer Active Nirmal Robbins RN Active [facility] MELATONIN 5-10 MG CR-TABS Take one by mouth daily at bedtime MELATONIN-PYRIDOXINE 35232244133 No Longer Active Bertrand Patel DO Active VITAMIN E 200 UNIT CAPS 1 cap po qd VITAMIN E 316 85341784 No Longer Active Bertrand Patel DO Active B-12 1000 MCG CAPS 1 tab daily CYANOCOBALAMIN 31 305261411 No Longer Active Bertrand Patel DO Active METFORMIN HCL 500 MG TABS 1 bid METFORMIN HCL 02948010003 No Longer Active Bertrand Patel DO Active FUROSEMIDE 20 MG TABS 1 pill by mouth daily if needed for edema FUROSEMIDE 36725535395 No Longer Active Bertrand Patel DO Act jairo PRAVASTATIN SODIUM 20 MG TABS 1 tablet by mouth daily at bedtime PRAVASTATIN SODIUM 99572542100 No Longer Active Bertrand Patel DO Active AUGMENTIN 875-125 MG TABS 1 pill by mouth twice daily AMOXICILLIN-POT CLAVULANATE 38754978789 No Longer Active Yoli Mercado MD PhD Active LEVAQUIN 500 MG TABS 1 pill by mouth daily LEVO FLOXACIN 97862594969 No Longer Active Yoli Mercado MD PhD Active CYCLOBENZAPRINE HCL 10 MG TABS Take 1 tab TID PRN for muscle pain CYCLOBENZAPRINE HCL 59477756093 Active Brittni Randall SOFTWARE ENGINEERING SPECIALIST Active AMLODIPINE BESYLATE 5 MG TABS 1 tablet by mouth daily for bl ood pressure AMLODIPINE BESYLATE 11090979075 Active Nitza Dorman PT,RMA Active MICARDIS 80 MG TABS 1 tablet daily for blood pressure TELMISARTAN 76941311270 Active Nitza Mullins RPT,RMA Active MICARDIS HCT 80-12.5 MG TABS 1 qd TELMISARTA N-HCTZ 48503474558 No Longer Active Bertrand Patel DO Active CINNAMON ALPHA LIPOIC AC CMPLX CAPS by mouth twice a d ay in AM by mouth twice a day in PM ALPHA LIPOIC [id number] CAPS 765288 29818 No Longer Active Bertrand Patel DO Active AZITHROMYCIN 500 MG SOLR 1 po q day AZITHROMYCI N 84348572635 No Longer Active Bertrand Patel DO Active CYMBALTA 30 MG CPEP 1 cap by mouth daily DULOXE CATHI HCL 53590570823 No Longer Active Bertrand Patel DO Active CYMBALTA 60 MG CPEP 1 cap by mouth daily DULOXE CATHI HCL 18420655449 Active Nitza Mullins RPT,RMA Active WELLBUTRIN 75 MG TABS 2 times daily BUPROPION H CL 54625489141 No Longer Active Bertrand Patel DO Active PROAIR HFA 108 (90 BASE) MCG/ACT AERS take one to two puffs po Q4-6 hour prn cough and shortness of breath ALBUTEROL SULFATE 3732949535 2 Active Silvia Arnold TECHNOLOGY STRATEGIST Active AZITHROMYCIN 250 MG TABS take 2 po today then take 1 po days 2-5 AZITHROMYCIN 50461840514 No Longer Active Adolfo OSORIO Active PERMETHRIN 5 % CREA apply neck to toes tonight a nd then rinse off in morning. repeat at 7 days PERMETHRIN 16774473456 No Longer Active Adolfo OSORIO Active AMOXICILLIN 500 MG CAPS 2 po BID x 10 days AMOX ICILLIN 16100300050 No Longer Active Yoli Mercado MD PhD Active ALPRAZOLAM 0.5 MG TAB 1 tab by mouth tid ALPRAZOL AM 44901206698 Active Bertrand Patel DO Active INSUPEN ULTRAFIN 31G X 6 MM MISC USE DIRECTED 03/04 INSULIN PEN NEEDLE 96217001402 No Longer Active Bertrand Patel DO Active TRANSDERM-SCOP 1.5 MG PT72 1 patch applied behind ear q 3 day 20 04/13/28 SCOPOLAMINE BASE 87908589419 No Longer Active Bertrand Patel DO Active MACRODANTIN 100 MG CAPS one p.o. b.i.d. x2 weeks 03/04 NITROFURANTOIN MACROCRYSTAL 44958233822 No Longer Active Bertrand Patel DO Active MACRODANTIN 100 MG CAPS one p.o. b.i.d. x2 weeks 03/04 MACRODANTIN 100 MG CAPS 4196015 NITROFURANTOIN MACROCRYSTAL Inactive TRANSDERM-SCOP 1.5 MG PT72 [...] at 7 days PERMETHRIN 5 % CREA 547971 PERMETHRIN Inactive WELLBUTRIN 75 MG TABS 2 times daily WELLBUTRIN 75 MG TABS 824649 BUPROPION HCL Inactive CYMBALTA 30 MG CPEP 1 cap by mouth daily CYMBALTA 30 MG CPEP 574085 DULOXETINE HCL Inactive AZITHROMYCIN 500 MG SOLR 1 po q day ALTA THROMYCIN 500 MG SOLR 43396053028 AZITHROMYCIN Inactive CINNAMON ALPHA LIPOIC AC CMPLX CAPS by mouth twice a d ay in AM by mouth twice a day in PM CINNAMON ALPHA LIPOIC AC CMPLX CAPS ALPHA LIPOIC [id number] CAPS Inactive MICARDIS HCT 80-12.5 MG TABS 1 qd MICARDI S HCT 80-12.5 MG TABS 515113 TELMISARTAN-HCTZ Inactive PRAVASTATIN SODIUM 20 MG TABS 1 tablet by mouth daily at bedtime PRAVASTATIN SODIUM 20 MG TABS 053064 PRAVASTATIN SODIUM Inactive FUROSEMIDE 20 MG TABS 1 pill by mouth daily if needed for edema FUROSEMIDE 20 MG TABS 798574 FUROSEMIDE Inactive METFORMIN HCL 500 MG TABS 1 bid METFORMIN HCL 500 MG TABS 130208 METFORMIN HCL Inactive B-12 1000 MCG CAPS 1 tab daily B-12 1000 MCG CAP S CYANOCOBALAMIN Inactive VITAMIN E 200 UNIT CAPS 1 cap po qd VITAMIN E 2 00 UNIT CAPS 0510345 VITAMIN E Inactive [facility] MELATONIN 5-10 MG CR-TABS Take one by mouth daily at bedtime [facility] MELATONIN 5-10 MG CR-TABS MELATONIN-PYRIDOXI NE Inactive LORTAB 7.5-500 MG TABS take one po Q6 hours LORTAB 7.5-500 MG TABS HYDROCODONE-ACETAMINOPHEN Inactive AZITHROMYCIN 250 MG ORAL TABS Take 2 tabs po today then 1 ta b po daily AZITHROMYCIN 250 MG ORAL TABS 4301670 AZITHROMYCI N Inactive AMOXICILLIN 500 MG CAPS 2 po BID x 10 days AMOXICILLIN 500 MG CAPS 573414 AMOXICILLIN Inactive AZITHROMYCIN 250 MG TABS take 2 po today then take 1 po days 2-5 AZITHROMYCIN 250 MG TABS 6719041 AZITHROMYCIN Inactiv e LEVAQUIN 500 MG TABS 1 pill by mouth daily LEVAQUIN 500 MG TABS 692081 LEVOFLOXACIN Inactive AUGMENTIN 875-125 MG TABS 1 pill by mouth twice daily AUGMENTIN 875-125 MG TABS 007262 AMOXICILLIN-POT CLAVULANATE Inacti ve AUGMENTIN 875-125 MG TAB 1 po BID x 10 days AUGMENTIN 875- 125 MG TAB 833883 AMOXICILLIN-POT CLAVULANATE Inactive PREDNISONE 20 MG TAB take 3 tabs daily for 3 days , 2 tabs daily for 3 days, 1 tab daily for 3 days, 1/2 tab daily for 3 days PREDNISONE 20 MG TAB 893217 PREDNISONE Inactive Vital Signs Date Name Value [...] Negative;Positive Encounters Code Encounter Date Provider Facility CPT-48017 Level 4 Est. Patient 16:02:10 AUDIO ENGINEER Dangelo TECHNOLOGY STRATEGIST [facility] CPT-43842 Level 3 Est. Patient 13:04:54 AUDIO ENGINEER [facility] CPT-42388 Level 3 Est. Patient 12:56:37 CDT Bertrand marquez [facility] CPT-88224 Level 3 Est. Patient 19:12:03 CDT Yoli tolbert MD PhD [facility] CPT-27303 Level 3 Est. Patient 14:36:01 CDT Yoli tolbert MD PhD [facility] CPT-04410 Level 2 Est. Patient 08:00:22 CDT Jcarlos dc MD [facility] CPT-90918 Level 3 Est. Patient 19:06:55 CDT Bertrand marquez [facility] CPT-63430 Level 3 Est. Patient 10:08:23 AUDIO ENGINEER [facility] CPT-77134 Level 3 Est. Patient 16:37:54 AUDIO ENGINEER Bertrand marquez [facility] CPT-50716 Level 3 Est. Patient 11:31:59 AUDIO ENGINEER Bertrand marquez [facility] CPT-44140 Level 3 Est. Patient 10:20:08 CDT Adolfo villasenor [facility] CPT-27111 Level 3 Est. Patient 13:45:20 CDT Sanket Garciakelvin buckley [facility] CPT-34364 Level 3 Est. Patient 12:51:06 CDT Adolfo villasenor [facility] CPT-76934 Level 3 Est. Patient 11:22:51 AUDIO ENGINEER Yoli tolbert MD [facility] CPT-43553 Level 3 Est. Patient 13:33:19 CDT Bertrand marquez [facility] Procedures Code Procedure Name Date Entry Date Standard Desc ription CPT-J0696 Rocephin 1000 mg (Ceftriaxone) 16:20:30 AUDIO ENGINEER CPT-13508 Abx/Therapy Injection 16:20:29 AUDIO ENGINEER CPT-J0696 Rocephin 1gm Inj Solr 15:51:59 AUDIO ENGINEER CPT-80679 Chest 2V Frontal and Lat 15:20:28 AUDIO ENGINEER 07/22 CPT-98876 Breathing Tx 14:51:55 AUDIO ENGINEER CPT-25201 Breathing Tx 09:57:16 AUDIO ENGINEER CPT-07047 Knee comp 4/> V 11:58:06 AUDIO ENGINEER
--- OUTSIDE RECORDS SUMMARY | 2019-11-13 10:26 | XMS REPORT | Clinical Summary ---
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 sinusitis, unspecified Fatigue 780.79 Active Silvia [...] BID x 10 days AMOXICILLIN- POT CLAVULANATE 91090822693 Active Adriana Bender LPN Ac tive TESSALON PERLES 100 MG CAP 1 tablet by mouth 3 times daily BENZONATATE 32971954843 Active Silvia Arnold APRN Active CHEWABLE CALCIUM 500-200-40 MG-UNT-MCG ORAL CHEW 1 chew tab bid 201 11/03/03 CALCIUM-VITAMIN D-VITAMIN K 21546043767 Active Silvia Arnold APRN Active EQ COMPLETE MULTIVIT ADULT 50+ ORAL TABS 1 tab po bid MULTIPLE VITAMINS-MINERALS 33288173664 Active Silvia Arnold APRN Act jairo HYDROCODONE-ACETAMINOPHEN 7.5-325 MG TABS TAKE ONE TAB EVERY 6 HOURS BY MOUTH NEEDED FOR PAIN HYDROCODONE-ACETAMINOPHEN 95711556227 Acti ve Bertrand Patel DO Active LORTAB 7.5-500 MG TABS take one po Q6 hours HYDROCODONE-ACETAMINOPHEN No Longer Active Nirmal Robbins RN Active [facility] MELATONIN 5-10 MG CR-TABS Take one by mouth daily at bedtime MELATONIN-PYRIDOXINE 79250425203 No Longer Active Bertrand W Jorge DO Active VITAMIN E 200 UNIT CAPS 1 cap po qd VITAMIN E 316 24784404 No Longer Active Bertrand Patel DO Active B-12 1000 MCG CAPS 1 tab daily CYANOCOBALAMIN 31 769334649 No Longer Active Bertrand Patel DO Active METFORMIN HCL 500 MG TABS 1 bid METFORMIN HCL 83184638146 No Longer Active Bertrand Patel DO Active FUROSEMIDE 20 MG TABS 1 pill by mouth daily if needed for edema FUROSEMIDE 46056416448 No Longer Active Bertrand Patel DO Act jairo PRAVASTATIN SODIUM 20 MG TABS 1 tablet by mouth daily at bedtime PRAVASTATIN SODIUM 53942915830 No Longer Active Bertrand Patel DO Active AUGMENTIN 875-125 MG TABS 1 pill by mouth twice daily AMOXICILLIN-POT CLAVULANATE 20520075484 No Longer Active Yoli Mercado MD PhD Active LEVAQUIN 500 MG TABS 1 pill by mouth daily LEVO FLOXACIN 65188952244 No Longer Active Yoli Mercado MD PhD Active CYCLOBENZAPRINE HCL 10 MG TABS Take 1 tab TID PRN for muscle pain CYCLOBENZAPRINE HCL 43219973895 Active Brittni Fernándezum SAL[employer]ERSON [employer] Active AMLODIPINE BESYLATE 5 MG TABS 1 tablet by mouth daily for bl ood pressure AMLODIPINE BESYLATE 17312984483 Active Nitza Dorman PT,RMA Active MICARDIS 80 MG TABS 1 tablet daily for blood pressure TELMISARTAN 67696364149 Active Nitza Mullins RPT,RMA Active MICARDIS HCT 80-12.5 MG TABS 1 qd TELMISARTA N-HCTZ 27064647369 No Longer Active Bertrand Patel DO Active CINNAMON ALPHA LIPOIC AC CMPLX CAPS by mouth twice a d ay in AM by mouth twice a day in PM ALPHA LIPOIC [id number] CAPS 836005 63937 No Longer Active Bertrand Patel DO Active AZITHROMYCIN 500 MG SOLR 1 po q day AZITHROMYCI N 32509032970 No Longer Active Bertrand Patel DO Active CYMBALTA 30 MG CPEP 1 cap by mouth daily DULOXE CATHI HCL 81178343777 No Longer Active Bertrand Patel DO Active CYMBALTA 60 MG CPEP 1 cap by mouth daily DULOXE CATHI HCL 29331142872 Active Nitza Mullins RPT,RMA Active WELLBUTRIN 75 MG TABS 2 times daily BUPROPION H CL 24914218061 No Longer Active Bertrand Patel DO Active PROAIR HFA 108 (90 BASE) MCG/ACT AERS take one to two puffs po Q4-6 hour prn cough and shortness of breath ALBUTEROL SULFATE 6052339600 2 Active Silvia Arnold PALLET STONE POSITIONER Active AZITHROMYCIN 250 MG TABS take 2 po today then take 1 po days 2-5 AZITHROMYCIN 89033042827 No Longer Active Adolfo OSORIO Active PERMETHRIN 5 % CREA apply neck to toes tonight a nd then rinse off in morning. repeat at 7 days PERMETHRIN 76233602971 No Longer Active Adolfo OSORIO Active AMOXICILLIN 500 MG CAPS 2 po BID x 10 days AMOX ICILLIN 46943835054 No Longer Active Yoli Mercado MD PhD Active ALPRAZOLAM 0.5 MG TAB 1 tab by mouth tid ALPRAZOL AM 92012446331 Active Bertrand Patel DO Active INSUPEN ULTRAFIN 31G X 6 MM MISC USE DIRECTED 03/04 INSULIN PEN NEEDLE 04992140942 No Longer Active Bertrand Patel DO Active TRANSDERM-SCOP 1.5 MG PT72 1 patch applied behind ear q 3 day 20 04/13/28 SCOPOLAMINE BASE 47543514708 No Longer Active Bertrand Patel DO Active MACRODANTIN 100 MG CAPS one p.o. b.i.d. x2 weeks 03/04 NITROFURANTOIN MACROCRYSTAL 52033244203 No Longer Active Bertrand Patel DO Active MACRODANTIN 100 MG CAPS one p.o. b.i.d. x2 weeks 03/04 MACRODANTIN 100 MG CAPS 9381690 NITROFURANTOIN MACROCRYSTAL Inactive TRANSDERM-SCOP 1.5 MG PT72 [...] at 7 days PERMETHRIN 5 % CREA 978567 PERMETHRIN Inactive WELLBUTRIN 75 MG TABS 2 times daily WELLBUTRIN 75 MG TABS 857148 BUPROPION HCL Inactive CYMBALTA 30 MG CPEP 1 cap by mouth daily CYMBALTA 30 MG CPEP 656172 DULOXETINE HCL Inactive AZITHROMYCIN 500 MG SOLR 1 po q day ALTA THROMYCIN 500 MG SOLR 79725207125 AZITHROMYCIN Inactive CINNAMON ALPHA LIPOIC AC CMPLX CAPS by mouth twice a d ay in AM by mouth twice a day in PM CINNAMON ALPHA LIPOIC AC CMPLX CAPS ALPHA LIPOIC [id number] CAPS Inactive MICARDIS HCT 80-12.5 MG TABS 1 qd MICARDI S HCT 80-12.5 MG TABS 441341 TELMISARTAN-HCTZ Inactive PRAVASTATIN SODIUM 20 MG TABS 1 tablet by mouth daily at bedtime PRAVASTATIN SODIUM 20 MG TABS 964040 PRAVASTATIN SODIUM Inactive FUROSEMIDE 20 MG TABS 1 pill by mouth daily if needed for edema FUROSEMIDE 20 MG TABS 794847 FUROSEMIDE Inactive METFORMIN HCL 500 MG TABS 1 bid METFORMIN HCL 500 MG TABS 278975 METFORMIN HCL Inactive B-12 1000 MCG CAPS 1 tab daily B-12 1000 MCG CAP S CYANOCOBALAMIN Inactive VITAMIN E 200 UNIT CAPS 1 cap po qd VITAMIN E 2 00 UNIT CAPS 3069164 VITAMIN E Inactive [facility] MELATONIN 5-10 MG CR-TABS Take one by mouth daily at bedtime [facility] MELATONIN 5-10 MG CR-TABS MELATONIN-PYRIDOXI NE Inactive LORTAB 7.5-500 MG TABS take one po Q6 hours LORTAB 7.5-500 MG TABS HYDROCODONE-ACETAMINOPHEN Inactive AMOXICILLIN 500 MG CAPS 2 po BID x 10 days AMOXICILLIN 500 MG CAPS 840054 AMOXICILLIN Inactive AZITHROMYCIN 250 MG TABS take 2 po today then take 1 po days 2-5 AZITHROMYCIN 250 MG TABS 0974960 AZITHROMYCIN Inactiv e LEVAQUIN 500 MG TABS 1 pill by mouth daily LEVAQUIN 500 MG TABS 697717 LEVOFLOXACIN Inactive AUGMENTIN 875-125 MG TABS 1 pill by mouth twice daily AUGMENTIN 875-125 MG TABS 042877 AMOXICILLIN-POT CLAVULANATE Inacti ve Diagnostic Results Date Name Value Unit Range Description Lab Report: JENNIFER INFLUENZA A/B, Myco Pn eumo - Toxicology rapid flu test Negative Negative;Positive Encounters Code Encounter Date Provider Facility CPT-97285 Level 3 Est. Patient 12:56:37 CDT Bertrand marquez [facility] CPT-16223 Level 3 Est. Patient 19:12:03 CDT Yoli tolbert MD PhD [facility] CPT-76564 Level 3 Est. Patient 14:36:01 CDT Yoli tolbert MD PhD [facility] CPT-36769 Level 2 Est. Patient 08:00:22 CDT Jcarlos dc MD [facility] CPT-16731 Level 3 Est. Patient 19:06:55 CDT Bertrand marquez [facility] CPT-44030 Level 3 Est. Patient 10:08:23 LENS GRINDER AND POLISHER Bertrand marquez [facility] CPT-22455 Level 3 Est. Patient 16:37:54 LENS GRINDER AND POLISHER Bertrand marquez [facility] CPT-04839 Level 3 Est. Patient 11:31:59 LENS GRINDER AND POLISHER Bertrand marquez [facility] CPT-98232 Level 3 Est. Patient 10:20:08 CDT Adolfo villasenor [facility] CPT-72951 Level 3 Est. Patient 13:45:20 CDT Sanket buckley [facility] CPT-34868 Level 3 Est. Patient 12:51:06 CDT Adolfo villasenor [facility] CPT-28637 Level 3 Est. Patient 11:22:51 LENS GRINDER AND POLISHER Yoli tolbert MD PhD [facility] CPT-27991 Level 3 Est. Patient 13:33:19 CDT Bertrand marquez [facility] Procedures Code Procedure Name Date Entry Date Standard Desc ription CPT-01500 Breathing Tx 09:57:16 LENS GRINDER AND POLISHER CPT-87811 Knee comp 4/> V 11:58:06 LENS GRINDER AND POLISHER
--- OUTSIDE RECORDS SUMMARY | 2019-11-13 10:27 | XMS REPORT | Clinical Summary ---
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 sinusitis, unspecified Fatigue 780.79 Active Silvia [...] Yoli Mercado MD PhD Pharyngitis-Acute ICD-462 Inactive Betrrand Redmond DO Polyuria ICD-788.42 Inactive Yoli Mercado [...] tab daily for 3 days P REDNISONE 38018838902 Active Silvia Arnold APRN Active SYMBICORT 160-4.5 MCG/ACT AERO 2 puffs BID BUDESONIDE-FORMOTEROL FUMARATE 23222989031 Active Silvia Arnold APRN Active ALBUTEROL SULFATE 0.083 % NEBU SOLN one vial per nebul izer every 4-6 hours as needed ALBUTEROL SULFATE 88395996300 Active Silvia Arnold APRN Active NEBULIZER MISC use as directed NEBULIZERS 09050626538 Active Silvia Arnold APRN Active AZITHROMYCIN 250 MG ORAL TABS Take 2 tabs po today then 1 ta b po daily AZITHROMYCIN 38616855992 No Longer Active Silvia gavin APRN Active AUGMENTIN 875-125 MG TAB 1 po BID x 10 days AMOXICILLIN- POT CLAVULANATE 39257521235 No Longer Active Adriana Bender LPN Active TESSALON PERLES 100 MG CAP 1 tablet by mouth 3 times daily BENZONATATE 03886389848 Active Silvia Arnold APRN Active CHEWABLE CALCIUM 500-200-40 MG-UNT-MCG ORAL CHEW 1 chew tab bid 201 11/03/03 CALCIUM-VITAMIN D-VITAMIN K 91053238751 Active Silvia Arnold APRN Active EQ COMPLETE MULTIVIT ADULT 50+ ORAL TABS 1 tab po bid MULTIPLE VITAMINS-MINERALS 73982241528 Active Silvia Arnold APRN Act jairo HYDROCODONE-ACETAMINOPHEN 7.5-325 MG TABS TAKE ONE TAB EVERY 6 HOURS BY MOUTH NEEDED FOR PAIN HYDROCODONE-ACETAMINOPHEN 63847177925 Acti ve Bertrand Patel DO Active LORTAB 7.5-500 MG TABS take one po Q6 hours HYDROCODONE-ACETAMINOPHEN No Longer Active Nirmal Robbins RN Active [facility] MELATONIN 5-10 MG CR-TABS Take one by mouth daily at bedtime MELATONIN-PYRIDOXINE 84827376492 No Longer Active Bertrand Patel DO Active VITAMIN E 200 UNIT CAPS 1 cap po qd VITAMIN E 316 61770206 No Longer Active Bertrand Patel DO Active B-12 1000 MCG CAPS 1 tab daily CYANOCOBALAMIN 31 971826438 No Longer Active Bertrand Patel DO Active METFORMIN HCL 500 MG TABS 1 bid METFORMIN HCL 49110601165 No Longer Active Bertrand Patel DO Active FUROSEMIDE 20 MG TABS 1 pill by mouth daily if needed for edema FUROSEMIDE 93328066163 No Longer Active Bertrand Patel DO Act jairo PRAVASTATIN SODIUM 20 MG TABS 1 tablet by mouth daily at bedtime PRAVASTATIN SODIUM 69732923748 No Longer Active Bertrand Patel DO Active AUGMENTIN 875-125 MG TABS 1 pill by mouth twice daily AMOXICILLIN-POT CLAVULANATE 97583075318 No Longer Active Yoli Mercado MD PhD Active LEVAQUIN 500 MG TABS 1 pill by mouth daily LEVO FLOXACIN 62498039765 No Longer Active Yoli Mercado MD PhD Active CYCLOBENZAPRINE HCL 10 MG TABS Take 1 tab TID PRN for muscle pain CYCLOBENZAPRINE HCL 66857666747 Active Brittni Randall 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 AMLODIPINE BESYLATE 5 MG TABS 1 tablet by mouth daily for bl ood pressure AMLODIPINE BESYLATE 12359368012 Active Nitza Dorman PT,RMA Active MICARDIS 80 MG TABS 1 tablet daily for blood pressure TELMISARTAN 44282731122 Active Nitza Mullins RPT,RMA Active MICARDIS HCT 80-12.5 MG TABS 1 qd TELMISARTA N-HCTZ 19483081205 No Longer Active Bertrand Patel DO Active CINNAMON ALPHA LIPOIC AC CMPLX CAPS by mouth twice a d ay in AM by mouth twice a day in PM ALPHA LIPOIC [id number] CAPS 290206 77758 No Longer Active Bertrand Patel DO Active AZITHROMYCIN 500 MG SOLR 1 po q day AZITHROMYCI N 71887073304 No Longer Active Bertrand Patel DO Active CYMBALTA 30 MG CPEP 1 cap by mouth daily DULOXE CATHI HCL 72184741238 No Longer Active Bertrand Patel DO Active CYMBALTA 60 MG CPEP 1 cap by mouth daily DULOXE CATHI HCL 75034361214 Active Nitza Mullins RPT,RMA Active WELLBUTRIN 75 MG TABS 2 times daily BUPROPION H CL 57046087191 No Longer Active Bertrand Patel DO Active PROAIR HFA 108 (90 BASE) MCG/ACT AERS take one to two puffs po Q4-6 hour prn cough and shortness of breath ALBUTEROL SULFATE 9568428661 2 Active 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 repeat at 7 days PERMETHRIN 10402972134 No Longer Active Adolfo OSORIO Active AMOXICILLIN 500 MG CAPS 2 po BID x 10 days AMOX ICILLIN 66764992410 No Longer Active Yoli Mercado MD PhD Active ALPRAZOLAM 0.5 MG TAB 1 tab by mouth tid ALPRAZOL AM 04880838291 Active Bertrand Patel DO Active INSUPEN ULTRAFIN 31G X 6 MM MISC USE DIRECTED 03/04 INSULIN PEN NEEDLE 97675811853 No Longer Active Bertrand Patel DO Active TRANSDERM-SCOP 1.5 MG PT72 1 patch applied behind ear q 3 day 20 04/13/28 SCOPOLAMINE BASE 43681102249 No Longer Active Bertrand Patel DO Active MACRODANTIN 100 MG CAPS one p.o. b.i.d. x2 weeks 03/04 NITROFURANTOIN MACROCRYSTAL 87969564689 No Longer Active Bertrand Patel DO Active MACRODANTIN 100 MG CAPS one p.o. b.i.d. x2 weeks 03/04 MACRODANTIN 100 MG CAPS 4818855 NITROFURANTOIN MACROCRYSTAL Inactive TRANSDERM-SCOP 1.5 MG PT72 [...] at 7 days PERMETHRIN 5 % CREA 820663 PERMETHRIN Inactive WELLBUTRIN 75 MG TABS 2 times daily WELLBUTRIN 75 MG TABS 424776 BUPROPION HCL Inactive CYMBALTA 30 MG CPEP 1 cap by mouth daily CYMBALTA 30 MG CPEP 278762 DULOXETINE HCL Inactive AZITHROMYCIN 500 MG SOLR 1 po q day ALTA THROMYCIN 500 MG SOLR 80028051931 AZITHROMYCIN Inactive CINNAMON ALPHA LIPOIC AC CMPLX CAPS by mouth twice a d ay in AM by mouth twice a day in PM CINNAMON ALPHA LIPOIC AC CMPLX CAPS ALPHA LIPOIC [id number] CAPS Inactive MICARDIS HCT 80-12.5 MG TABS 1 qd MICARDI S HCT 80-12.5 MG TABS 688463 TELMISARTAN-HCTZ Inactive PRAVASTATIN SODIUM 20 MG TABS 1 tablet by mouth daily at bedtime PRAVASTATIN SODIUM 20 MG TABS 190642 PRAVASTATIN SODIUM Inactive FUROSEMIDE 20 MG TABS 1 pill by mouth daily if needed for edema FUROSEMIDE 20 MG TABS 422836 FUROSEMIDE Inactive METFORMIN HCL 500 MG TABS 1 bid METFORMIN HCL 500 MG TABS 495560 METFORMIN HCL Inactive B-12 1000 MCG CAPS 1 tab daily B-12 1000 MCG CAP S CYANOCOBALAMIN Inactive VITAMIN E 200 UNIT CAPS 1 cap po qd VITAMIN E 2 00 UNIT CAPS 0785456 VITAMIN E Inactive [facility] MELATONIN 5-10 MG CR-TABS Take one by mouth daily at bedtime [facility] MELATONIN 5-10 MG CR-TABS MELATONIN-PYRIDOXI NE Inactive LORTAB 7.5-500 MG TABS take one po Q6 hours LORTAB 7.5-500 MG TABS HYDROCODONE-ACETAMINOPHEN Inactive AZITHROMYCIN 250 MG ORAL TABS Take 2 tabs po today then 1 ta b po daily AZITHROMYCIN 250 MG ORAL TABS 6997630 AZITHROMYCI N Inactive AMOXICILLIN 500 MG CAPS 2 po BID x 10 days AMOXICILLIN 500 MG CAPS 045880 AMOXICILLIN Inactive AZITHROMYCIN 250 MG TABS take 2 po today then take 1 po days 2-5 AZITHROMYCIN 250 MG TABS 7360344 AZITHROMYCIN Inactiv e LEVAQUIN 500 MG TABS 1 pill by mouth daily LEVAQUIN 500 MG TABS 144635 LEVOFLOXACIN Inactive AUGMENTIN 875-125 MG TABS 1 pill by mouth twice daily AUGMENTIN 875-125 MG TABS 138333 AMOXICILLIN-POT CLAVULANATE Inacti ve AUGMENTIN 875-125 MG TAB 1 po BID x 10 days AUGMENTIN 875- 125 MG TAB 238649 AMOXICILLIN-POT CLAVULANATE Inactive Vital Signs Date Name [...] Negative;Positive Encounters Code Encounter Date Provider Facility CPT-78703 Level 4 Est. Patient 16:02:10 [employer]PERATORS SCHOOL MANAGER Silvia Barnhart lemuelgypsy [facility]-04946 Level 3 Est. Patient 13:04:54 OPERATORS SCHOOL MANAGER Dangelo [facility]-72725 Level 3 Est. Patient 12:56:37 CDT Bertrand marquez [facility]-99868 Level 3 Est. Patient 19:12:03 CDT Yoli tolbert MD [facility]-25123 Level 3 Est. Patient 14:36:01 CDT Yoli tolbert MD [facility]75572 Level 2 Est. Patient 08:00:22 CDT Jcarlos dc MD [facility]-75871 Level 3 Est. Patient 19:06:55 CDT Bertrand marquez [facility]-95371 Level 3 Est. Patient 10:08:23 OPERATORS SCHOOL MANAGER Bertrand marquez [facility]-82930 Level 3 Est. Patient 16:37:54 OPERATORS SCHOOL MANAGER Bertrand marquez [facility]-14819 Level 3 Est. Patient 11:31:59 OPERATORS SCHOOL MANAGER Bertrand marquez [facility]-97788 Level 3 Est. Patient 10:20:08 CDT Adolfo villasenor [facility]-86380 Level 3 Est. Patient 13:45:20 CDT Sanket buckley [facility]-30117 Level 3 Est. Patient 12:51:06 CDT Adolfo OSORIO [facility] CPT-12990 Level 3 Est. Patient 11:22:51 OPERATORS SCHOOL MANAGER Yoli tolbert MD PhD [facility] CPT-61842 Level 3 Est. Patient 13:33:19 CDT Bertrand Sabillon ee DO [facility] Procedures Code Procedure Name Date Entry Date Standard Desc ription CPT-J0696 Rocephin 1000 mg (Ceftriaxone) 16:20:30 OPERATORS SCHOOL MANAGER CPT-39786 Abx/Therapy Injection 16:20:29 OPERATORS SCHOOL MANAGER CPT-J0696 Rocephin 1gm Inj Solr 15:51:59 OPERATORS SCHOOL MANAGER CPT-69999 Chest 2V Frontal and Lat 15:20:28 OPERATORS SCHOOL MANAGER 07/22 CPT-21963 Breathing Tx 14:51:55 OPERATORS SCHOOL MANAGER CPT-73954 Breathing Tx 09:57:16 OPERATORS SCHOOL MANAGER CPT-79541 Knee comp 4/> V 11:58:06 OPERATORS SCHOOL MANAGER
--- OUTSIDE RECORDS SUMMARY | 2019-11-13 10:27 | XMS REPORT | Clinical Summary ---
Author Author Admin, Enrique Adamson Organization [facility] Address Unknown Phone Unavailable Allergies, Adverse Reactions, [...] NDC Status Provider Patient Instruction VITAMIN D3 09188 UNIT CAPS 1 pill Week x 4 months for vitamin D deficiency/osteoporosis CHOLECALCIFEROL 27723005862 Active Darlyn Monzon Active BENZONATATE 200 MG ORAL CAPS 1 three times a day as needed for c ough BENZONATATE 06114534560 Active Ike Deluna MD Acti ve ZITHROMAX Z-MARTIN 250 MG TABS 2 today and then 1 daily for 4 days 201 12/01/06 AZITHROMYCIN 79997099722 Active Ike Deluna MD Active ADDERALL 10 MG ORAL TABS 1 tab twice daily AMPHETAMINE-DEXTROAMPHETAMINE 67830008434 Active Ike Deluna MD Active BACTROBAN 2 % CREAM Apply to affected area BID for up to 10 days MUPIROCIN CALCIUM 77961199756 No Longer Active Ike Deluna MD Active CIPRO 500 MG TAB 1 tablet by mouth twice daily CIPROFLOXACIN HCL 99435527993 No Longer Active Adriana Bender LPN Active AUGMENTIN 875-125 MG TAB 1 po BID x 10 days AMOXICILLIN- POT CLAVULANATE 76022142661 No Longer Active Adriana Bender LPN Active MODAFINIL 200 MG ORAL TABS Take 1/2 tab po in the am and 1/2 tab po at noon MODAFINIL 03013766876 Active Bertrand Patel DO Ac tive CYCLOBENZAPRINE HCL 10 MG TABS Take 1 tab TID PRN for muscle pain CYCLOBENZAPRINE HCL 69342867245 No Longer Active Bertrand Patel DO Ac tive TESSALON PERLES 100 MG CAP 1 tablet by mouth 3 times daily 07/07 BENZONATATE 20574343198 No Longer Active Bertrand Patel DO Ac tive NEBULIZER MISC use as directed NEBULIZERS 512567 65960 No Longer Active Bertrand Patel DO Active ALBUTEROL SULFATE 0.083 % NEBU SOLCammy one vial per nebul izer every 4-6 hours as needed ALBUTEROL SULFATE 41293828787 No Longer Active Bertrand Patel DO Active SYMBICORT 160-4.5 MCG/ACT AERO 2 puffs BID BUDESONIDE- FORMOTEROL FUMARATE 84332410830 No Longer Active Bertrand Patel DO Ac tive PREDNISONE 20 MG TAB take 3 tabs daily for 3 days , 2 tabs daily for 3 days, 1 tab daily for 3 days, 1/2 tab daily for 3 days P REDNISONE 93006143238 No Longer Active Silvia Arnold APRN Active AZITHROMYCIN 250 MG ORAL TABS Take 2 tabs po today then 1 ta b po daily AZITHROMYCIN 72915981666 No Longer Active Silvia Jorge gavin [employer] Active AUGMENTIN 875-125 MG TAB 1 po BID x 10 days AMOXICILLIN- POT CLAVULANATE 16119400893 No Longer Active Adriana Bender LPN Active CHEWABLE CALCIUM 500-200-40 MG-UNT-MCG ORAL CHEW 1 chew tab bid 201 11/03/03 CALCIUM-VITAMIN D-VITAMIN K 51454168597 Active Silvia Arnold APRN Active EQ COMPLETE MULTIVIT ADULT 50+ ORAL TABS 1 tab po bid MULTIPLE VITAMINS-MINERALS 79632389801 Active Silvia Arnold APRN Act jairo HYDROCODONE-ACETAMINOPHEN 7.5-325 MG TABS TAKE ONE TAB EVERY 6 HOURS BY MOUTH NEEDED FOR PAIN HYDROCODONE-ACETAMINOPHEN 62331524689 Acti ve Bertrand Patel DO Active LORTAB 7.5-500 MG TABS take one po Q6 hours HYDROCODONE-ACETAMINOPHEN No Longer Active Nirmal Robbins RN Active [facility] MELATONIN 5-10 MG CR-TABS Take one by mouth daily at bedtime MELATONIN-PYRIDOXINE 69941721913 No Longer Active Bertrand Patel DO Active VITAMIN E 200 UNIT CAPS 1 cap po qd VITAMIN E 316 29215617 No Longer Active Bertrand Patel DO Active B-12 1000 MCG CAPS 1 tab daily CYANOCOBALAMIN 31 615898497 No Longer Active Bertrand Patel DO Active METFORMIN HCL 500 MG TABS 1 bid METFORMIN HCL 20000193698 No Longer Active Bertrand Patel DO Active FUROSEMIDE 20 MG TABS 1 pill by mouth daily if needed for edema FUROSEMIDE 34301839680 No Longer Active Bertrand Patel DO Act jairo PRAVASTATIN SODIUM 20 MG TABS 1 tablet by mouth daily at bedtime PRAVASTATIN SODIUM 62516643091 No Longer Active Bertrand Ptael DO Active AUGMENTIN 875-125 MG TABS 1 pill by mouth twice daily AMOXICILLIN-POT CLAVULANATE 36034154337 No Longer Active Yoli Mercado MD PhD Active LEVAQUIN 500 MG TABS 1 pill by mouth daily LEVO FLOXACIN 32187057452 No Longer Active Yoli Mercado MD PhD Active AMLODIPINE BESYLATE 5 MG TABS 1 tablet by mouth daily for bl ood pressure AMLODIPINE BESYLATE 89243043956 Active Darlyn Monzon Active MICARDIS 80 MG TABS 1 tablet daily for blood pressure TELMISARTAN 07064638508 Active Bertrand Patel DO Active MICARDIS HCT 80-12.5 MG TABS 1 qd TELMISARTA N-HCTZ 82277967442 No Longer Active Bertrand Patel DO Active CINNAMON ALPHA LIPOIC AC CMPLX CAPS by mouth twice a d ay in AM by mouth twice a day in PM ALPHA LIPOIC DHIH-GG-ZATFLSYE CAPS 128046 01685 No Longer Active Bertrand Patel DO Active AZITHROMYCIN 500 MG SOLR 1 po q day AZITHROMYCI N 65859752264 No Longer Active Bertrand Patel DO Active CYMBALTA 30 MG CPEP 1 cap by mouth daily DULOXE CATHI HCL 73025688894 No Longer Active Bertrand Patel DO Active CYMBALTA 60 MG CPEP 1 cap by mouth daily DULOXE CATHI HCL 05636931799 Active Keysha Jones MA Active WELLBUTRIN 75 MG TABS 2 times daily BUPROPION H CL 64920077086 No Longer Active Bertrand W Jorge DO Active PROAIR HFA 108 (90 BASE) MCG/ACT AERS take one to two puffs po Q4-6 hour prn cough and shortness of breath ALBUTEROL SULFATE 2006855931 2 Active Silvia Arnold [employer]ER Active AZITHROMYCIN 250 MG TABS take 2 po today then take 1 po days 2-5 AZITHROMYCIN 29056169824 No Longer Active Adolfo OSORIO Active PERMETHRIN 5 % CREA apply neck to toes tonight a nd then rinse off in morning. repeat at 7 days PERMETHRIN 87068730974 No Longer Active Adolfo OSORIO Active AMOXICILLIN 500 MG CAPS 2 po BID x 10 days AMOX ICILLIN 86377585031 No Longer Active Yoli Mercado MD PhD Active ALPRAZOLAM 0.5 MG TAB 1 tab by mouth tid ALPRAZOL AM 79908349399 Active Nitza Mullins SECURITIES ADVISER Active INSUPEN ULTRAFIN 31G X 6 MM MISC USE DIRECTED 03/04 INSULIN PEN NEEDLE 80970814238 No Longer Active Bertrand Patel DO Active TRANSDERM-SCOP 1.5 MG PT72 1 patch applied behind ear q 3 day 20 04/13/28 SCOPOLAMINE BASE 27982875514 No Longer Active Bertrand Patel DO Active MACRODANTIN 100 MG CAPS one p.o. b.i.d. x2 weeks 03/04 NITROFURANTOIN MACROCRYSTAL 16125496498 No Longer Active Bertrand Patel DO Active MACRODANTIN 100 MG CAPS one p.o. b.i.d. x2 weeks 03/04 MACRODANTIN 100 MG CAPS 3427402 NITROFURANTOIN MACROCRYSTAL Inactive TRANSDERM-SCOP 1.5 MG PT72 [...] at 7 days PERMETHRIN 5 % CREA 165284 PERMETHRIN Inactive WELLBUTRIN 75 MG TABS 2 times daily WELLBUTRIN 75 MG TABS BUPROPION HCL Inactive CYMBALTA 30 MG CPEP 1 cap by mouth daily CYMBALTA 30 MG CPEP 506727 DULOXETINE HCL Inactive AZITHROMYCIN 500 MG SOLR 1 po q day ALTA THROMYCIN 500 MG SOLR 29652544917 AZITHROMYCIN Inactive CINNAMON ALPHA LIPOIC AC CMPLX CAPS by mouth twice a d ay in AM by mouth twice a day in PM CINNAMON ALPHA LIPOIC AC CMPLX CAPS ALPHA LIPOIC [id number] CAPS Inactive MICARDIS HCT 80-12.5 MG TABS 1 qd MICARDI S HCT 80-12.5 MG TABS 869633 TELMISARTAN-HCTZ Inactive PRAVASTATIN SODIUM 20 MG TABS 1 tablet by mouth daily at bedtime PRAVASTATIN SODIUM 20 MG TABS 372361 PRAVASTATIN SODIUM Inactive FUROSEMIDE 20 MG TABS 1 pill by mouth daily if needed for edema FUROSEMIDE 20 MG TABS 420224 FUROSEMIDE Inactive METFORMIN HCL 500 MG TABS 1 bid METFORMIN HCL 500 MG TABS 367019 METFORMIN HCL Inactive B-12 1000 MCG CAPS 1 tab daily B-12 1000 MCG CAP S CYANOCOBALAMIN Inactive VITAMIN E 200 UNIT CAPS 1 cap po qd VITAMIN E 2 00 UNIT CAPS 9696185 VITAMIN E Inactive [facility] MELATONIN 5-10 MG CR-TABS Take one by mouth daily at bedtime [facility] MELATONIN 5-10 MG CR-TABS MELATONIN-PYRIDOXI NE Inactive LORTAB 7.5-500 MG TABS take one po Q6 hours LORTAB 7.5-500 MG TABS HYDROCODONE-ACETAMINOPHEN Inactive AZITHROMYCIN 250 MG ORAL TABS Take 2 tabs po today then 1 ta b po daily AZITHROMYCIN 250 MG ORAL TABS 8472324 AZITHROMYCI N Inactive SYMBICORT 160-4.5 MCG/ACT AERO 2 puffs BID SYMBICORT 160- 4.5 MCG/ACT AERO BUDESONIDE-FORMOTEROL FUMARATE Inactive ALBUTEROL SULFATE 0.083 % NEBU SOLN one vial per nebul izer every 4-6 hours as needed ALBUTEROL SULFATE 0.083 % NEBU SOLN 56727 8 ALBUTEROL SULFATE Inactive NEBULIZER MISC use as directed NEBULIZER MISC NEBULIZERS Inactive TESSALON PERLES 100 MG CAP 1 tablet by mouth 3 times daily 07/07 TESSALON PERLES 100 MG CAP 471467 BENZONATATE Inact jairo CYCLOBENZAPRINE HCL 10 MG TABS Take 1 tab TID PRN for muscle pain CYCLOBENZAPRINE HCL 10 MG TABS 625614 CYCLOBENZAPRINE HCL Inactive AUGMENTIN 875-125 MG TAB 1 po BID x 10 days AUGMENTIN 875- 125 MG TAB 995192 AMOXICILLIN-POT CLAVULANATE Inactive BACTROBAN 2 % CREAM Apply to affected area BID for up to 10 days BACTROBAN 2 % CREAM 031682 MUPIROCIN CALCIUM Inactive AMOXICILLIN 500 MG CAPS 2 po BID x 10 days AMOXICILLIN 500 MG CAPS 346311 AMOXICILLIN Inactive AZITHROMYCIN 250 MG TABS take 2 po today then take 1 po days 2-5 AZITHROMYCIN 250 MG TABS 1728530 AZITHROMYCIN Inactiv e LEVAQUIN 500 MG TABS 1 pill by mouth daily LEVAQUIN 500 MG TABS 530733 LEVOFLOXACIN Inactive AUGMENTIN 875-125 MG TABS 1 pill by mouth twice daily AUGMENTIN 875-125 MG TABS 275274 AMOXICILLIN-POT CLAVULANATE Inacti ve AUGMENTIN 875-125 MG TAB 1 po BID x 10 days AUGMENTIN 875- 125 MG TAB 493879 AMOXICILLIN-POT CLAVULANATE Inactive PREDNISONE 20 MG TAB take 3 tabs daily for 3 days , 2 tabs daily for 3 days, 1 tab daily for 3 days, 1/2 tab daily for 3 days PREDNISONE 20 MG TAB 246485 PREDNISONE Inactive CIPRO 500 MG TAB 1 tablet by mouth twice daily CIPRO 500 MG TAB 514616 CIPROFLOXACIN HCL Inactive Vital Signs Date Name [...] 4.3-6.0 Encounters Code Encounter Date Provider Facility CPT-61088 Level 4 Est. Patient 12:31:54 CDT Bertrand marquez [facility] CPT-63703 Level 3 Est. Patient 11:27:00 LOCK TENDER Ike Deluna MD [facility]-71689 Level 3 Est. Patient 08:50:57 LOCK TENDER Dangelo [employer] [facility] CPT-60155 Level 3 Est. Patient 10:04:13 CDT Bertrand marquez [facility] CPT-06486 Level 4 Est. Patient 16:02:10 LOCK TENDER Dangelo [employer] [facility] CPT-87806 Level 3 Est. Patient 13:04:54 LOCK TENDER Dangelo [employer] [facility]-81615 Level 3 Est. Patient 12:56:37 CDT Bertrand marquez [facility] CPT-27063 Level 3 Est. Patient 19:12:03 CDT Yoli tolbert MD [facility] CPT-81714 Level 3 Est. Patient 14:36:01 CDT Yoli tolbert MD [facility]-41811 Level 2 Est. Patient 08:00:22 CDT Jcarlos dc MD [facility]-30031 Level 3 Est. Patient 19:06:55 CDT Bertrand marquez [facility] CPT-16068 Level 3 Est. Patient 10:08:23 LOCK TENDER Bertrand marquez [facility]-63088 Level 3 Est. Patient 16:37:54 LOCK TENDER Bertrand marquez [facility] CPT-51823 Level 3 Est. Patient 11:31:59 LOCK TENDER Bertrand marquez [facility] CPT-79665 Level 3 Est. Patient 10:20:08 CDT Adolfo OSORIO [facility]-80604 Level 3 Est. Patient 13:45:20 CDT Sanket Ankit buckley [facility] CPT-35767 Level 3 Est. Patient 12:51:06 CDT Adolfo Monroyridge villasenor [facility] CPT-87753 Level 3 Est. Patient 11:22:51 LOCK TENDER Yoli tolbert MD PhD [facility] CPT-87485 Level 3 Est. Patient 13:33:19 CDT Bertrand Sabillon ee DO [facility] Procedures Code Procedure Name Date Entry Date Standard Desc ription CPT-05814 Wound Culture - LAB USE ONLY 15:45:25 CDT 2 CPT-15183 Venipuncture Draw Fee 10:23:01 CDT CPT-J0696 Rocephin 1000 mg (Ceftriaxone) 16:20:30 LOCK TENDER CPT-45489 Abx/Therapy Injection 16:20:29 LOCK TENDER CPT-J0696 Rocephin 1gm Inj Solr 15:51:59 LOCK TENDER CPT-85352 Chest 2V Frontal and Lat 15:20:28 LOCK TENDER 07/22 CPT-31757 Breathing Tx 14:51:55 LOCK TENDER CPT-62942 Breathing Tx 09:57:16 LOCK TENDER CPT-32241 Knee comp 4/> V 11:58:06 LOCK TENDER
--- OUTSIDE RECORDS SUMMARY | 2019-11-13 10:27 | XMS REPORT | Clinical Summary ---
Author Author Admin, Enrqiue Adamson Organization [employer] Address Unknown Phone Unavailable Allergies, Adverse Reactions, [...] ear Obstructive sleep apnea 327.23 Active Bertrand Remdond DO Obstructive sleep apnea (adult) (pediatric) Fatigue 780.79 Resolved Ike Deluna MD Other malaise and fatigue Headache 784.0 Active Bertrand Patel DO He adache Cough 786.2 Active Silvia Anrold APRN Cough SINUSITIS, ACUTE 461.9 Resolved Ike [...] conditions classified elsewhere and of unspecified site SCABIES ICD-133.0 Inactive Yoli Mercado MD PhD [...] SINUSITIS, ACUTE ICD-461.9 Inactive Ike lange MD DIABETES ICD-V18.0 Inactive Yoli Mercado MD PhD 20 14/02/29 SINUSITIS, FRONTAL, ACUTE ICD-461.1 Inactive Yoli Mercado MD PhD Medication List Medication Instructions Start Date Stop Date Generic Name NDC Status Provider Patient Instruction BENZONATATE 200 MG ORAL CAPS 1 three times a day as needed for c ough BENZONATATE 86272403814 Active Ike Deluna MD Acti ve ZITHROMAX Z-MARTIN 250 MG TABS 2 today and then 1 daily for 4 days 201 12/01/06 AZITHROMYCIN 61332228417 Active Ike Deluna MD Active ADDERALL 10 MG ORAL TABS 1 tab twice daily AMPHETAMINE-DEXTROAMPHETAMINE 94704118162 Active Ike Deluna MD Active BACTROBAN 2 % CREAM Apply to affected area BID for up to 10 days MUPIROCIN CALCIUM 36201610585 No Longer Active Ike Deluna MD Active CIPRO 500 MG TAB 1 tablet by mouth twice daily CIPROFLOXACIN HCL 54123586493 No Longer Active Adriana Bender LPN Active AUGMENTIN 875-125 MG TAB 1 po BID x 10 days AMOXICILLIN- POT CLAVULANATE 10825361004 No Longer Active Adriana Bender LPN Active MODAFINIL 200 MG ORAL TABS Take 1/2 tab po in the am and 1/2 tab po at noon MODAFINIL 50499633543 Active Silvia Arnold APRN Active CYCLOBENZAPRINE HCL 10 MG TABS Take 1 tab TID PRN for muscle pain CYCLOBENZAPRINE HCL 06559168737 No Longer Active Bertrand Patel DO Ac tive TESSALON PERLES 100 MG CAP 1 tablet by mouth 3 times daily 07/07 BENZONATATE 47710388648 No Longer Active Bertrand Patel DO Ac tive NEBULIZER MISC use as directed NEBULIZERS 611684 77143 No Longer Active Bertrand Patel DO Active ALBUTEROL SULFATE 0.083 % NEBU SOLN one vial per nebul izer every 4-6 hours as needed ALBUTEROL SULFATE 70637698344 No Longer Active Bertrand Patel DO Active SYMBICORT 160-4.5 MCG/ACT AERO 2 puffs BID BUDESONIDE- FORMOTEROL FUMARATE 31337761593 No Longer Active Bertrand Patel DO Ac tive PREDNISONE 20 MG TAB take 3 tabs daily for 3 days , 2 tabs daily for 3 days, 1 tab daily for 3 days, 1/2 tab daily for 3 days P REDNISONE 60849828469 No Longer Active Silvia Arnold APRN Active AZITHROMYCIN 250 MG ORAL TABS Take 2 tabs po today then 1 ta b po daily AZITHROMYCIN 68038698397 No Longer Active Silvia gavin [employer]CRETE SAW OPERATOR Active AUGMENTIN 875-125 MG TAB 1 po BID x 10 days AMOXICILLIN- POT CLAVULANATE 48768863543 No Longer Active Adriana Bender LPN Active CHEWABLE CALCIUM 500-200-40 MG-UNT-MCG ORAL CHEW 1 chew tab bid 201 11/03/03 CALCIUM-VITAMIN D-VITAMIN K 67904111448 Active Silvia Arnold APRN Active EQ COMPLETE MULTIVIT ADULT 50+ ORAL TABS 1 tab po bid MULTIPLE VITAMINS-MINERALS 35759571627 Active Silvia Arnold APRN Act jairo HYDROCODONE-ACETAMINOPHEN 7.5-325 MG TABS TAKE ONE TAB EVERY 6 HOURS BY MOUTH NEEDED FOR PAIN HYDROCODONE-ACETAMINOPHEN 03668300428 Acti raheel العلي Active LORTAB 7.5-500 MG TABS take one po Q6 hours HYDROCODONE-ACETAMINOPHEN No Longer Active Nirmal Robbins RN Active [facility] MELATONIN 5-10 MG CR-TABS Take one by mouth daily at bedtime MELATONIN-PYRIDOXINE 38850003315 No Longer Active Bertrand Patel DO Active VITAMIN E 200 UNIT CAPS 1 cap po qd VITAMIN E 316 39233897 No Longer Active Bertrand Patel DO Active B-12 1000 MCG CAPS 1 tab daily CYANOCOBALAMIN 31 715921147 No Longer Active Bertrand Patel DO Active METFORMIN HCL 500 MG TABS 1 bid METFORMIN HCL 85717425068 No Longer Active Bertrand Patel DO Active FUROSEMIDE 20 MG TABS 1 pill by mouth daily if needed for edema FUROSEMIDE 80451941426 No Longer Active Bertrand Patel DO Act j[place] PRAVASTATIN SODIUM 20 MG TABS 1 tablet by mouth daily at bedtime PRAVASTATIN SODIUM 69700917538 No Longer Active Bertrand Patel DO Active AUGMENTIN 875-125 MG TABS 1 pill by mouth twice daily AMOXICILLIN-POT CLAVULANATE 29064765696 No Longer Active Yoli Mercado MD PhD Active LEVAQUIN 500 MG TABS 1 pill by mouth daily LEVO FLOXACIN 53555565169 No Longer Active Yoli Mercado MD PhD Active AMLODIPINE BESYLATE 5 MG TABS 1 tablet by mouth daily for bl ood pressure AMLODIPINE BESYLATE 15040176655 Active Keysha Jones MA Active MICARDIS 80 MG TABS 1 tablet daily for blood pressure TELMISARTAN 96799162334 Active Keysha Jones MA Active MICARDIS HCT 80-12.5 MG TABS 1 qd TELMISARTA N-HCTZ 62620378510 No Longer Active Bertrand Patel DO Active CINNAMON ALPHA LIPOIC AC CMPLX CAPS by mouth twice a d ay in AM by mouth twice a day in PM ALPHA LIPOIC OAHY-EW-UCGBCGDP CAPS 864293 79393 No Longer Active Bertrand Patel DO Active AZITHROMYCIN 500 MG SOLR 1 po q day AZITHROMYCI N 22850424361 No Longer Active Bertrand Patel DO Active CYMBALTA 30 MG CPEP 1 cap by mouth daily DULOXE CATHI HCL 11759383080 No Longer Active Bertrand Patel DO Active CYMBALTA 60 MG CPEP 1 cap by mouth daily DULOXE CATHI HCL 67692480956 Active Keysha Jones MA Active WELLBUTRIN 75 MG TABS 2 times daily BUPROPION H CL 07211039072 No Longer Active Bertrand Patel DO Active PROAIR HFA 108 (90 BASE) MCG/ACT AERS take one to two puffs po Q4-6 hour prn cough and shortness of breath ALBUTEROL SULFATE 0455894291 2 Active Silvia Arnold APRN Active AZITHROMYCIN 250 MG TABS take 2 po today then take 1 po days 2-5 AZITHROMYCIN 69182801339 No Longer Active Adolfo OSORIO Active PERMETHRIN 5 % CREA apply neck to toes tonight a nd then rinse off in morning. repeat at 7 days PERMETHRIN 91817127740 No Longer Active Adolfo OSORIO Active AMOXICILLIN 500 MG CAPS 2 po BID x 10 days AMOX ICILLIN 41378981861 No Longer Active Yoli Mercado MD PhD Active ALPRAZOLAM 0.5 MG TAB 1 tab by mouth tid ALPRAZOL AM 43650923332 Active Nitza Mullins RPT,RMA Active INSUPEN ULTRAFIN 31G X 6 MM MISC USE DIRECTED 03/04 INSULIN PEN NEEDLE 23660377936 No Longer Active Bertrand Patel DO Active TRANSDERM-SCOP 1.5 MG PT72 1 patch applied behind ear q 3 day 20 04/13/28 SCOPOLAMINE BASE 78886117875 No Longer Active Bertrand Patel DO Active MACRODANTIN 100 MG CAPS one p.o. b.i.d. x2 weeks 03/04 NITROFURANTOIN MACROCRYSTAL 33037159080 No Longer Active Bertrand Patel DO Active MACRODANTIN 100 MG CAPS one p.o. b.i.d. x2 weeks 03/04 MACRODANTIN 100 MG CAPS 2793071 NITROFURANTOIN MACROCRYSTAL Inactive TRANSDERM-SCOP 1.5 MG PT72 [...] at 7 days PERMETHRIN 5 % CREA 524988 PERMETHRIN Inactive WELLBUTRIN 75 MG TABS 2 times daily WELLBUTRIN 75 MG TABS BUPROPION HCL Inactive CYMBALTA 30 MG CPEP 1 cap by mouth daily CYMBALTA 30 MG CPEP 890780 DULOXETINE HCL Inactive AZITHROMYCIN 500 MG SOLR 1 po q day ALTA THROMYCIN 500 MG SOLR 94473663620 AZITHROMYCIN Inactive CINNAMON ALPHA LIPOIC AC CMPLX CAPS by mouth twice a d ay in AM by mouth twice a day in PM CINNAMON ALPHA LIPOIC AC CMPLX CAPS ALPHA LIPOIC [id number] CAPS Inactive MICARDIS HCT 80-12.5 MG TABS 1 qd MICARDI S HCT 80-12.5 MG TABS 152783 TELMISARTAN-HCTZ Inactive PRAVASTATIN SODIUM 20 MG TABS 1 tablet by mouth daily at bedtime PRAVASTATIN SODIUM 20 MG TABS 273757 PRAVASTATIN SODIUM Inactive FUROSEMIDE 20 MG TABS 1 pill by mouth daily if needed for edema FUROSEMIDE 20 MG TABS 159276 FUROSEMIDE Inactive METFORMIN HCL 500 MG TABS 1 bid METFORMIN HCL 500 MG TABS 441596 METFORMIN HCL Inactive B-12 1000 MCG CAPS 1 tab daily B-12 1000 MCG CAP S CYANOCOBALAMIN Inactive VITAMIN E 200 UNIT CAPS 1 cap po qd VITAMIN E 2 00 UNIT CAPS 3835633 VITAMIN E Inactive [facility] MELATONIN 5-10 MG CR-TABS Take one by mouth daily at bedtime [facility] MELATONIN 5-10 MG CR-TABS MELATONIN-PYRIDOXI NE Inactive LORTAB 7.5-500 MG TABS take one po Q6 hours LORTAB 7.5-500 MG TABS HYDROCODONE-ACETAMINOPHEN Inactive AZITHROMYCIN 250 MG ORAL TABS Take 2 tabs po today then 1 ta b po daily AZITHROMYCIN 250 MG ORAL TABS 7491060 AZITHROMYCI N Inactive SYMBICORT 160-4.5 MCG/ACT AERO 2 puffs BID SYMBICORT 160- 4.5 MCG/ACT AERO BUDESONIDE-FORMOTEROL FUMARATE Inactive ALBUTEROL SULFATE 0.083 % NEBU SOLN one vial per nebul izer every 4-6 hours as needed ALBUTEROL SULFATE 0.083 % NEBU SOLN 32423 8 ALBUTEROL SULFATE Inactive NEBULIZER MISC use as directed NEBULIZER MISC NEBULIZERS Inactive TESSALON PERLES 100 MG CAP 1 tablet by mouth 3 times daily 07/07 TESSALON PERLES 100 MG CAP 134068 BENZONATATE Inact jairo CYCLOBENZAPRINE HCL 10 MG TABS Take 1 tab TID PRN for muscle pain CYCLOBENZAPRINE HCL 10 MG TABS 201653 CYCLOBENZAPRINE HCL Inactive AUGMENTIN 875-125 MG TAB 1 po BID x 10 days AUGMENTIN 875- 125 MG TAB 861617 AMOXICILLIN-POT CLAVULANATE Inactive BACTROBAN 2 % CREAM Apply to affected area BID for up to 10 days BACTROBAN 2 % CREAM 398503 MUPIROCIN CALCIUM Inactive AMOXICILLIN 500 MG CAPS 2 po BID x 10 days AMOXICILLIN 500 MG CAPS 187830 AMOXICILLIN Inactive AZITHROMYCIN 250 MG TABS take 2 po today then take 1 po days 2-5 AZITHROMYCIN 250 MG TABS 2474914 AZITHROMYCIN Inactiv e LEVAQUIN 500 MG TABS 1 pill by mouth daily LEVAQUIN 500 MG TABS 302544 LEVOFLOXACIN Inactive AUGMENTIN 875-125 MG TABS 1 pill by mouth twice daily AUGMENTIN 875-125 MG TABS 307346 AMOXICILLIN-POT CLAVULANATE Inacti ve AUGMENTIN 875-125 MG TAB 1 po BID x 10 days AUGMENTIN 875- 125 MG TAB 655600 AMOXICILLIN-POT CLAVULANATE Inactive PREDNISONE 20 MG TAB take 3 tabs daily for 3 days , 2 tabs daily for 3 days, 1 tab daily for 3 days, 1/2 tab daily for 3 days PREDNISONE 20 MG TAB 795039 PREDNISONE Inactive CIPRO 500 MG TAB 1 tablet by mouth twice daily CIPRO 500 MG TAB 415602 CIPROFLOXACIN HCL Inactive Vital Signs Date Name [...] 11 .6-14.8 platelet count 339 10^3/MM^3 10*3/mm3 744-914 4738/02/19 lymphocytes as percent of blood leukocytes 39.3 % 20.5-51.1 monocytes as percent of blood leukocytes 9.8 % 1.7-9.3 neutrophils as percent of blood leukocytes 44.9 % 42.2-75.2 leukocyte count, blood 10.4 10^3/MM^3 10*3/mm3 4.6-10.2 Lab Report: HGBA1C, Lipid Panel, MICROAL B/CREAT W/RATIO, Thyroid Stimula ... - Chemistry aspartate aminotransferase (SGOT), serum 18 U/L 15-37 calcium, serum 8.7 mg/dL 8.5-10.1 bilirubin, serum, total 0.40 mg/dL 0.00-1.00 sodium, serum 142 mmol/L 231-334 4337/07/22 carbon dioxide, venous blood 33.1 mmol/L 21.0-32 .0 potassium, serum 4.6 mmol/L 3.5-5.2 chloride, serum 105 mmol/L 98-107 blood glucose 96 mg/dL 65-110 urea nitrogen, blood 16 mg/dL 7-18 creatinine, serum 0.69 mg/dL 0.55-1.30 alanine aminotransferase (SGPT), serum 22 U/L 12-78 hemoglobin A1C, blood, as % of total hemoglobin 5.8 % 4.3-6.0 cholesterol, serum 200 mg/dL 445-999 9394/07/22 triglyceride, serum, fasting 56 mg/dL 30-200 HDL [...] Negative;Positive Encounters Code Encounter Date Provider Facility CPT-75638 Level 3 Est. Patient 11:27:00 POLE SANDER OPERATOR Ike Deluna MD [facility] CPT-15906 Level 3 Est. Patient 08:50:57 POLE SANDER OPERATOR Dangelo CONCRETE SAW OPERATOR [facility] CPT-53842 Level 3 Est. Patient 10:04:13 CDT Bertrand marquez [facility] CPT-44361 Level 4 Est. Patient 16:02:10 POLE SANDER OPERATOR Dangelo [facility] CPT-83161 Level 3 Est. Patient 13:04:54 POLE SANDER OPERATOR Dangelo [facility] CPT-88057 Level 3 Est. Patient 12:56:37 CDT Bertrand marquez [facility] CPT-43943 Level 3 Est. Patient 19:12:03 CDT Yoli tolbert MD PhD [facility] CPT-67107 Level 3 Est. Patient 14:36:01 CDT Yoli tolbert MD [facility] CPT-07348 Level 2 Est. Patient 08:00:22 CDT Jcarlos dc MD [facility] CPT-20785 Level 3 Est. Patient 19:06:55 CDT Bertrand marquez [facility] CPT-72467 Level 3 Est. Patient 10:08:23 POLE SANDER OPERATOR Bertrand marquez [facility] CPT-40590 Level 3 Est. Patient 16:37:54 POLE SANDER OPERATOR Bertrand marquez [facility] CPT-65093 Level 3 Est. Patient 11:31:59 POLE SANDER OPERATOR Bertrand marquez [facility] CPT-92657 Level 3 Est. Patient 10:20:08 CDT Adolfo Jerzy hallist [facility] CPT-25073 Level 3 Est. Patient 13:45:20 CDT Sanket buckley [facility] CPT-33370 Level 3 Est. Patient 12:51:06 CDT Gennadot villasenor [facility] CPT-98458 Level 3 Est. Patient 11:22:51 POLE SANDER OPERATOR Yoli tolbert MD [facility] CPT-48986 Level 3 Est. Patient 13:33:19 CDT Bertrand marquez [facility] Procedures Code Procedure Name Date Entry Date Standard Desc ription CPT-42687 Wound Culture - LAB USE ONLY 15:45:25 CDT 2 CPT-34803 Venipuncture Draw Fee 10:23:01 CDT CPT-J0696 Rocephin 1000 mg (Ceftriaxone) 16:20:30 POLE SANDER OPERATOR CPT-04059 Abx/Therapy Injection 16:20:29 POLE SANDER OPERATOR CPT-J0696 Rocephin 1gm Inj Solr 15:51:59 POLE SANDER OPERATOR CPT-40636 Chest 2V Frontal and Lat 15:20:28 POLE SANDER OPERATOR 07/22 CPT-57602 Breathing Tx 14:51:55 POLE SANDER OPERATOR CPT-09627 Breathing Tx 09:57:16 POLE SANDER OPERATOR CPT-99415 Knee comp 4/> V 11:58:06 POLE SANDER OPERATOR
--- OUTSIDE RECORDS SUMMARY | 2019-11-13 10:28 | XMS REPORT | Clinical Summary ---
Author Author Admin, Enrique Adamson Organization [facility] Address Unknown Phone Unavailable Allergies, Adverse Reactions, [...] Polyuria ICD-788.42 Inactive Yoli Mercado MD P HEALTH SCREENING ICD-V70.0 Inactive Yoli sabillon MD PhD Foreign body, ear ICD-931 Inactive Yoli salazar MD PhD SINUSITIS, ACUTE ICD-461.9 Inactive Ike lange MD Cellulitis, leg, right ICD-682.6 Inactive Yuki Deluna MD Fatigue ICD-780.79 Inactive Ike Deluna MD 201 12/01/06 Medication List Medication Instructions Start Date Stop Date Generic Name NDC Status Provider Patient Instruction VITAMIN D3 67950 UNIT ORAL CAPSULE 1 pill Week x 4 mo [facility] for vitamin D deficiency/osteoporosis CHOLECALCIFEROL [id number] N o Longer Active Laylaana cristina Mcmullen Active BENZONATATE 200 MG ORAL CAPSULE 1 three times a day as neede d for cough BENZONATATE 82289801974 Active Ike Deluna MD Active ZITHROMAX Z-MARTIN 250 MG ORAL TABLET 2 today and then 1 daily for 4 days AZITHROMYCIN 00393376736 Active Ike Deluna MD Active ADDERALL 10 MG ORAL TABLET 1 tab twice daily AMPHETAMINE-DEXTROAMPHETAMINE 81134115370 Active Ike Deluna MD Active BACTROBAN 2 % EXTERNAL CREAM Apply to affected area BID for up to 10 days MUPIROCIN CALCIUM 51744567905 No Longer Active Ike Deluna MD Active CIPRO 500 MG ORAL TABLET 1 tablet by mouth twice daily CIPROFLOXACIN HCL 51095283869 No Longer Active Adriana Bender LPN Active AUGMENTIN 875-125 MG ORAL TABLET 1 po BID x 10 days 18/04/06 AMOXICILLIN-POT CLAVULANATE 42773335383 No Longer Active Adriana Bender LPN Active MODAFINIL 200 MG ORAL TABLET Take 1/2 tab po in the am and 1 /2 tab po at noon MODAFINIL 24069759639 Active Bertrand Patel DO Ac tive CYCLOBENZAPRINE HCL 10 MG ORAL TABLET Take 1 tab TID PRN for mus triston pain CYCLOBENZAPRINE HCL 73738877898 No Longer Active Bertrand Patel DO Active TESBYRON PERLES 100 MG ORAL CAPSULE 1 tablet by mouth 3 times da juan pablo BENZONATATE 02449455389 No Longer Active Bertrand Patel DO Ac tive NEBULIZER use as directed NEBULIZERS 63195534287 No Longer Active Bertrand Patel DO Active ALBUTEROL SULFATE (2.5 MG/3ML) 0.083% INHALATION NEBUL IZATION SOLUTION one vial per nebulizer every 4-6 hours as needed ALBUTERO L SULFATE 49151110358 No Longer Active Bertrand Patel DO Active SYMBICORT 160-4.5 MCG/ACT INHALATION AEROSOL 2 puffs BID 9 BUDESONIDE-FORMOTEROL FUMARATE 36196122192 No Longer Active Bertrand Patel DO Active PREDNISONE 20 MG ORAL TABLET take 3 tabs daily for 3 d ays, 2 tabs daily for 3 days, 1 tab daily for 3 days, 1/2 tab daily for 3 days 08/02 PREDNISONE 44339457013 No Longer Active Silvia Arnold APRN Acti ve AZITHROMYCIN 250 MG ORAL TABLET Take 2 tabs po today then 1 tab po daily AZITHROMYCIN 25807079491 No Longer Active Silvia Jorge leslye TOVARN Active AUGMENTIN 875-125 MG ORAL TABLET 1 po BID x 10 days 20 19/07/13 AMOXICILLIN-POT CLAVULANATE 75085511207 No Longer Active Adriana Bender LPN Active CHEWABLE CALCIUM 500-200-40 MG-UNT-MCG ORAL TABLET CHEWABLE 1 chew tab bid CALCIUM-VITAMIN D-VITAMIN K 27143169674 Active Silvia nunes APRN Active EQ COMPLETE MULTIVIT ADULT 50+ ORAL TABLET 1 tab po bid MULTIPLE VITAMINS-MINERALS 12589781179 Active Silvia Arnold APRN Act jairo HYDROCODONE-ACETAMINOPHEN 7.5-325 MG ORAL TABLET TAKE ONE TAB EVERY 6 HOURS BY MOUTH NEEDED FOR PAIN HYDROCODONE-ACETAMINOPHEN 004 82348120 Active Adele Feldman LPN Active LORTAB 7.5-500 MG ORAL TABLET take one po Q6 hours 201 09/12/01 HYDROCODONE-ACETAMINOPHEN 12249422074 No Longer Active Nirmal Robbins RN Active [facility] MELATONIN 5-10 MG ORAL TABLET EXTENDED RELEASE Jair e one by mouth daily at bedtime MELATONIN-PYRIDOXINE 01146749536 No Longer Acti ve Bertrand Patel DO Active VITAMIN E 200 UNIT ORAL CAPSULE 1 cap po qd VITAM IN E 15364502831 No Longer Active Bertrand Patel DO Active B-12 1000 MCG ORAL CAPSULE 1 tab daily CYANOCOB ALAMIN 49857173566 No Longer Active Bertrand W Jorge DO Active METFORMIN HCL 500 MG ORAL TABLET 1 bid METFOR MIN HCL 74507036640 No Longer Active Bertrand Patel DO Active FUROSEMIDE 20 MG ORAL TABLET 1 pill by mouth daily if needed for edema FUROSEMIDE 08134058529 No Longer Active Bertrand Patel DO Active PRAVASTATIN SODIUM 20 MG ORAL TABLET 1 tablet by mouth daily at bedtime PRAVASTATIN SODIUM 26794183077 No Longer Active Bertrand Patel DO Active AUGMENTIN 875-125 MG ORAL TABLET 1 pill by mouth twice daily 201 09/10/00 AMOXICILLIN-POT CLAVULANATE 18857837064 No Longer Active Yoli Mercado MD PhD Active LEVAQUIN 500 MG ORAL TABLET 1 pill by mouth daily 2013 LEVOFLOXACIN 20235142200 No Longer Active Yoli Mercado MD PhD Acti ve AMLODIPINE BESYLATE 5 MG ORAL TABLET 1 tablet by mouth daily for blood pressure AMLODIPINE BESYLATE 73827509346 Active Layla Mcmullen Active MICARDIS 80 MG ORAL TABLET 1 tablet daily for blood pressure 07/30 TELMISARTAN 92716345885 Active Layla Mcmullen Active MICARDIS HCT 80-12.5 MG ORAL TABLET 1 qd TELMISARTAN-HCTZ 57834569003 No Longer Active Bertrand Patel DO Active CINNAMON ALPHA LIPOIC AC CMPLX CAPSULE by mouth twice a day in AM by mouth twice a day in PM ALPHA LIPOIC [id number] CA PS 96104548494 No Longer Active Bertrand Patel DO Active AZITHROMYCIN 500 MG INTRAVENOUS SOLUTION RECONSTITUTED 1 po q da y AZITHROMYCIN 86111187070 No Longer Active Bertrand Patel DO A ctive CYMBALTA 30 MG ORAL CAPSULE DELAYED RELEASE PARTICLES 1 cap by mouth daily DULOXETINE HCL 21094017408 No Longer Active Bertrand marquez DO Active CYMBALTA 60 MG ORAL CAPSULE DELAYED RELEASE PARTICLES 1 cap by mouth daily DULOXETINE HCL 72340972486 Active Darlyn Monzon Active WELLBUTRIN 75 MG ORAL TABLET 2 times daily BUPR OPION HCL 45638224835 No Longer Active Bertrand Patel DO Active PROAIR HFA 108 (90 Base) MCG/ACT INHALATION AEROSOL SO LUTION take one to two puffs po Q4-6 hour prn cough and shortness of breath ALBUTEROL SULFATE 91686833861 Active Silvia Arnold NATURAL SCIENCE CURATOR Active AZITHROMYCIN 250 MG ORAL TABLET take 2 po today then take 1 po days 2-5 AZITHROMYCIN 40331576959 No Longer Active Adolfo OSORIO Active PERMETHRIN 5 % EXTERNAL CREAM apply neck to toes tonig ht and then rinse off in morning. repeat at 7 days PERMETHRIN 10345522133 No Longer Active Adolfo OSORIO Active AMOXICILLIN 500 MG ORAL CAPSULE 2 po BID x 10 days 201 07/15/00 AMOXICILLIN 92722204951 No Longer Active Yoli Mercado MD PhD Acti ve ALPRAZOLAM 0.5 MG ORAL TABLET 1 tab by mouth tid ALPRAZOLAM 90238984459 Active Nitza Mullins LPN Active INSUPEN ULTRAFIN 31G X 6 MM USE DIRECTED INSULIN PEN NEEDLE 06028904443 No Longer Active Bertrand Patel DO Active TRANSDERM-SCOP (1.5 MG) 1 MG/3DAYS TRANSDERMAL PATCH 7 2 HOUR 1 patch applied behind ear q 3 day SCOPOLAMINE BASE 65807380893 No Lo nger Active Bertrand Patel DO Active MACRODANTIN 100 MG ORAL CAPSULE one p.o. b.i.d. x2 weeks NITROFURANTOIN MACROCRYSTAL 74106819024 No Longer Active Bertrand Patel DO Active MACRODANTIN 100 MG ORAL CAPSULE one p.o. b.i.d. x2 weeks MACRODANTIN 100 MG ORAL CAPSULE 7564588 NITROFURANTOIN MACROCRYSTAL Inactive TRANSDERM-SCOP (1.5 MG) 1 [...] days PERMETHRIN 5 % EXTER NAL CREAM 703915 PERMETHRIN Inactive WELLBUTRIN 75 MG ORAL TABLET 2 times daily WELLBUTRIN 75 MG ORAL TABLET 847474 BUPROPION HCL Inactive CYMBALTA 30 MG ORAL CAPSULE DELAYED RELEASE PARTICLES 1 cap by mouth daily CYMBALTA 30 MG ORAL CAPSULE DELAYED RELE ASE PARTICLES 685893 DULOXETINE HCL Inactive AZITHROMYCIN 500 MG INTRAVENOUS SOLUTION RECONSTITUTED 1 po q da y AZITHROMYCIN 500 MG INTRAVENOUS SOLUTION RECONSTITUTED 59663 317640 AZITHROMYCIN Inactive CINNAMON ALPHA LIPOIC AC CMPLX CAPSULE by mouth twice a day in AM by mouth twice a day in PM CINNAMON ALPHA LIPOIC AC CMPLX CAPSULE ALPHA LIPOIC [id number] CAPS Inactive MICARDIS HCT 80-12.5 MG ORAL TABLET 1 qd 07/30 MICARDIS HCT 80-12.5 MG ORAL TABLET 193754 TELMISARTAN-HCTZ Inactive PRAVASTATIN SODIUM 20 MG ORAL TABLET 1 tablet by mouth daily at bedtime PRAVASTATIN SODIUM 20 MG ORAL TABLET 311955 PRAVASTATIN SODIUM Inactive FUROSEMIDE 20 MG ORAL TABLET 1 pill by mouth daily if needed for edema FUROSEMIDE 20 MG ORAL TABLET 954255 FUROSEMIDE Inactive METFORMIN HCL 500 MG ORAL TABLET 1 bid METFORMIN HCL 500 MG ORAL TABLET 193235 METFORMIN HCL Inactive B-12 1000 MCG ORAL CAPSULE 1 tab daily B -12 1000 MCG ORAL CAPSULE CYANOCOBALAMIN Inactive VITAMIN E 200 UNIT ORAL CAPSULE 1 cap po qd 1 VITAMIN E 200 UNIT ORAL CAPSULE 2102874 VITAMIN E Inactive [facility] MELATONIN 5-10 MG ORAL TABLET EXTENDED RELEASE Jair e one by mouth daily at bedtime [facility] MELATONIN 5-10 M G ORAL TABLET EXTENDED RELEASE MELATONIN-PYRIDOXINE Inactive LORTAB 7.5-500 MG ORAL TABLET take one po Q6 hours 201 09/12/01 LORTAB 7.5-500 MG ORAL TABLET 686533 HYDROCODONE-ACETAMINOPHEN Inactive AZITHROMYCIN 250 MG ORAL TABLET Take 2 tabs po today then 1 tab po daily AZITHROMYCIN 250 MG ORAL TABLET 961982 AZITHROMY BERNARDO Inactive SYMBICORT 160-4.5 MCG/ACT INHALATION AEROSOL 2 puffs BID 9 SYMBICORT 160-4.5 MCG/ACT INHALATION AEROSOL BUDESONIDE-FORM OTEROL FUMARATE Inactive ALBUTEROL SULFATE (2.5 MG/3ML) 0.083% INHALATION NEBUL IZATION SOLUTION one vial per nebulizer every 4-6 hours as needed ALBUTEROL SULFATE (2.5 MG/3ML) 0.083% INHALATION NEBULIZATION SOLUTION 204970 ALBUTER OL SULFATE Inactive NEBULIZER use as directed NEBULIZER NEBULI ZERS Inactive TESSALON PERLES 100 MG ORAL CAPSULE 1 tablet by mouth 3 times da juan pablo TESSALON PERLES 100 MG ORAL CAPSULE 551245 BENZONATATE Inactive CYCLOBENZAPRINE HCL 10 MG ORAL TABLET Take 1 tab TID PRN for mus triston pain CYCLOBENZAPRINE HCL 10 MG ORAL TABLET 815790 CYCLOBENZA ANUJA HCL Inactive AUGMENTIN 875-125 MG ORAL TABLET 1 po BID x 10 days 20 18/04/06 AUGMENTIN 875-125 MG ORAL TABLET 180921 AMOXICILLIN-POT CLAVULANATE Inactive BACTROBAN 2 % EXTERNAL CREAM Apply to affected area BID for up to 10 days BACTROBAN 2 % EXTERNAL CREAM 348204 MUPIROCIN CA LCIUM Inactive VITAMIN D3 48272 UNIT ORAL CAPSULE 1 pill Week x 4 mo nths for vitamin D deficiency/osteoporosis VITAMIN D3 58498 UNIT ORAL CAPSULE CHOLECALCIFEROL Inactive AMOXICILLIN 500 MG ORAL CAPSULE 2 po BID x 10 days 201 07/15/00 AMOXICILLIN 500 MG ORAL CAPSULE 357482 AMOXICILLIN Inactive AZITHROMYCIN 250 MG ORAL TABLET take 2 po today then take 1 po days 2-5 AZITHROMYCIN 250 MG ORAL TABLET 068229 AZITHROMY BERNARDO Inactive LEVAQUIN 500 MG ORAL TABLET 1 pill by mouth daily 2013 LEVAQUIN 500 MG ORAL TABLET 816727 LEVOFLOXACIN Inactive AUGMENTIN 875-125 MG ORAL TABLET 1 pill by mouth twice daily 201 09/10/00 AUGMENTIN 875-125 MG ORAL TABLET 422450 AMOXICILLIN-POT CLAVULANATE Inactive AUGMENTIN 875-125 MG ORAL TABLET 1 po BID x 10 days 19/07/13 AUGMENTIN 875-125 MG ORAL TABLET 393301 AMOXICILLIN-POT CLAVULANATE Inactive PREDNISONE 20 MG ORAL TABLET take 3 tabs daily for 3 d ays, 2 tabs daily for 3 days, 1 tab daily for 3 days, 1/2 tab daily for 3 days 08/02 PREDNISONE 20 MG ORAL TABLET 069062 PREDNISONE Inactive CIPRO 500 MG ORAL TABLET 1 tablet by mouth twice daily CIPRO 500 MG ORAL TABLET 477479 CIPROFLOXACIN HCL Inactive Vital Signs Date Name [...] 0-19 Encounters Code Encounter Date Provider Facility CPT-60100 Level 4 Est. Patient 12:31:54 CDT Bertrand marquez [facility] CPT-64884 Level 3 Est. Patient 11:27:00 OUTREACH MANAGER Ike Deluna MD [facility]-55036 Level 3 Est. Patient 08:50:57 OUTREACH MANAGER Dangelo NATURAL SCIENCE CURATOR [facility]-36424 Level 3 Est. Patient 10:04:13 CDT Bertrand marquez [facility] CPT-16418 Level 4 Est. Patient 16:02:10 OUTREACH MANAGER Dangelo [facility]-81675 Level 3 Est. Patient 13:04:54 OUTREACH MANAGER Dangelo [facility][note 3] CPT-89086 Level 3 Est. Patient 12:56:37 CDT Bertrand marquez [facility] CPT-85848 Level 3 Est. Patient 19:12:03 CDT Yoli tolbert MD PhD [facility] CPT-87594 Level 3 Est. Patient 14:36:01 CDT Yoli tolbert MD PhD [facility] CPT-01321 Level 2 Est. Patient 08:00:22 CDT Jcarlos dc MD [facility]-55506 Level 3 Est. Patient 19:06:55 CDT Bertrand marquez [facility] CPT-66516 Level 3 Est. Patient 10:08:23 OUTREACH MANAGER Bertrand marquez [facility] CPT-24747 Level 3 Est. Patient 16:37:54 OUTREACH MANAGER Bertrand marquez [facility] CPT-82643 Level 3 Est. Patient 11:31:59 OUTREACH MANAGER Bertrand marquez [facility] CPT-41080 Level 3 Est. Patient 10:20:08 CDT Adolfo villasenor [facility] CPT-80558 Level 3 Est. Patient 13:45:20 CDT Sanket buckley [facility] CPT-63323 Level 3 Est. Patient 12:51:06 CDT Adolfo villasenor [facility] CPT-33046 Level 3 Est. Patient 11:22:51 OUTREACH MANAGER Yoli tolbert MD [facility] CPT-33570 Level 3 Est. Patient 13:33:19 CDT Bertrand marquez [facility] Procedures Code Procedure Name Date Entry Date Standard Desc ription CPT-58249 Wound Culture - LAB USE ONLY 15:45:25 CDT 2 CPT-10184 Venipuncture Draw Fee 10:23:01 CDT CPT-J0696 Rocephin 1000 mg (Ceftriaxone) 16:20:30 OUTREACH MANAGER CPT-89722 Abx/Therapy Injection 16:20:29 OUTREACH MANAGER CPT-J0696 Rocephin 1gm Inj Solr 15:51:59 OUTREACH MANAGER CPT-12274 Chest 2V Frontal and Lat 15:20:28 OUTREACH MANAGER 07/22 CPT-28327 Breathing Tx 14:51:55 OUTREACH MANAGER CPT-70037 Breathing Tx 09:57:16 OUTREACH MANAGER CPT-34670 Knee comp 4/> V 11:58:06 OUTREACH MANAGER
--- OUTSIDE RECORDS SUMMARY | 2019-11-13 10:28 | XMS REPORT | Clinical Summary ---
Author Author Admin, Enrique Adamson Organization [employer] Address Unknown Phone Unavailable Allergies, Adverse Reactions, [...] NDC Status Provider Patient Instruction VITAMIN D3 33125 UNIT CAPS 1 pill Week x 4 months for vitamin D deficiency/osteoporosis CHOLECALCIFEROL 45356118837 Active Darlyn Monzon Active BENZONATATE 200 MG ORAL CAPS 1 three times a day as needed for c ough BENZONATATE 83690576607 Active Ike Deluna MD Acti ve ZITHROMAX Z-MARTIN 250 MG TABS 2 today and then 1 daily for 4 days 201 12/01/06 AZITHROMYCIN 67972513117 Active Ike Deluna MD Active ADDERALL 10 MG ORAL TABS 1 tab twice daily AMPHETAMINE-DEXTROAMPHETAMINE 24290640250 Active Ike Deluna MD Active BACTROBAN 2 % CREAM Apply to affected area BID for up to 10 days MUPIROCIN CALCIUM 04767817327 No Longer Active Ike Deluna MD Active CIPRO 500 MG TAB 1 tablet by mouth twice daily CIPROFLOXACIN HCL 15267818726 No Longer Active Adriana Bender LPN Active AUGMENTIN 875-125 MG TAB 1 po BID x 10 days AMOXICILLIN- POT CLAVULANATE 43105628501 No Longer Active Adriana Bender LPN Active MODAFINIL 200 MG ORAL TABS Take 1/2 tab po in the am and 1/2 tab po at noon MODAFINIL 71365133839 Active Darlyn Monzon A ctive CYCLOBENZAPRINE HCL 10 MG TABS Take 1 tab TID PRN for muscle pain CYCLOBENZAPRINE HCL 00289895500 No Longer Active Bertrand Patel DO Ac tive TESSALON PERLES 100 MG CAP 1 tablet by mouth 3 times daily 07/07 BENZONATATE 91973377735 No Longer Active Bertrand Patel DO Ac tive NEBULIZER MISC use as directed NEBULIZERS 646514 64992 No Longer Active Bertrand Patel DO Active ALBUTEROL SULFATE 0.083 % NEBU SOLN one vial per nebul izer every 4-6 hours as needed ALBUTEROL SULFATE 21037666150 No Longer Active Bertrand Patel DO Active SYMBICORT 160-4.5 MCG/ACT AERO 2 puffs BID BUDESONIDE- FORMOTEROL FUMARATE 05479028607 No Longer Active Bertrand Patel DO Ac tive PREDNISONE 20 MG TAB take 3 tabs daily for 3 days , 2 tabs daily for 3 days, 1 tab daily for 3 days, 1/2 tab daily for 3 days P REDNISONE 48119659892 No Longer Active Silvia Arnold APRN Active AZITHROMYCIN 250 MG ORAL TABS Take 2 tabs po today then 1 ta b po daily AZITHROMYCIN 45205683000 No Longer Active Silvia Jorge leslye TOVARN Active AUGMENTIN 875-125 MG TAB 1 po BID x 10 days AMOXICILLIN- POT CLAVULANATE 31722831116 No Longer Active Adriana Bender LPN Active CHEWABLE CALCIUM 500-200-40 MG-UNT-MCG ORAL CHEW 1 chew tab bid 201 11/03/03 CALCIUM-VITAMIN D-VITAMIN K 12702909887 Active Silvia Arnold APRN Active EQ COMPLETE MULTIVIT ADULT 50+ ORAL TABS 1 tab po bid MULTIPLE VITAMINS-MINERALS 42153062578 Active Silvia Arnold APRN Act jairo HYDROCODONE-ACETAMINOPHEN 7.5-325 MG TABS TAKE ONE TAB EVERY 6 HOURS BY MOUTH NEEDED FOR PAIN HYDROCODONE-ACETAMINOPHEN 14441569005 Acti raheel Mcmullen Active LORTAB 7.5-500 MG TABS take one po Q6 hours HYDROCODONE-ACETAMINOPHEN No Longer Active Nirmal Robbins RN Active [facility] MELAT[facility] 5-10 MG CR-TABS Take one by mouth daily at bedtime MELATONIN-PYRIDOXINE 71519416299 No Longer Active Bertrand Patel DO Active VITAMIN E 200 UNIT CAPS 1 cap po qd VITAMIN E 316 67895111 No Longer Active Bertrand Patel DO Active B-12 1000 MCG CAPS 1 tab daily CYANOCOBALAMIN 31 013905919 No Longer Active Bertrand Patel DO Active METFORMIN HCL 500 MG TABS 1 bid METFORMIN HCL 29143108305 No Longer Active Bertrand Patel DO Active FUROSEMIDE 20 MG TABS 1 pill by mouth daily if needed for edema FUROSEMIDE 93004230213 No Longer Active Bertrand Patel DO Act jairo PRAVASTATIN SODIUM 20 MG TABS 1 tablet by mouth daily at bedtime PRAVASTATIN SODIUM 30446835291 No Longer Active Bertrand Patel DO Active AUGMENTIN 875-125 MG TABS 1 pill by mouth twice daily AMOXICILLIN-POT CLAVULANATE 75515298770 No Longer Active Yoli Mercado MD PhD Active LEVAQUIN 500 MG TABS 1 pill by mouth daily LEVO FLOXACIN 16446175438 No Longer Active Yoli Mercado MD PhD Active AMLODIPINE BESYLATE 5 MG TABS 1 tablet by mouth daily for bl ood pressure AMLODIPINE BESYLATE 63583356951 Active Darlyn Monzon Active MICARDIS 80 MG TABS 1 tablet daily for blood pressure TELMISARTAN 07882731726 Active Darlyn Monzon Active MICARDIS HCT 80-12.5 MG TABS 1 qd TELMISARTA N-HCTZ 64233091034 No Longer Active Bertrand Patel DO Active CINNAMON ALPHA LIPOIC AC CMPLX CAPS by mouth twice a d ay in AM by mouth twice a day in PM ALPHA LIPOIC [id number] CAPS 105077 85677 No Longer Active Bertrand Patel DO Active AZITHROMYCIN 500 MG SOLR 1 po q day AZITHROMYCI N 30108522536 No Longer Active Bertrand Patel DO Active CYMBALTA 30 MG CPEP 1 cap by mouth daily DULOXE CATHI HCL 59949577668 No Longer Active Bertrand Patel DO Active CYMBALTA 60 MG CPEP 1 cap by mouth daily DULOXE CATHI HCL 14086491638 Active Keysha Jones MA Active WELLBUTRIN 75 MG TABS 2 times daily BUPROPION H CL 91159770459 No Longer Active Bertrand W Jorge DO Active PROAIR HFA 108 (90 BASE) MCG/ACT AERS take one to two puffs po Q4-6 hour prn cough and shortness of breath ALBUTEROL SULFATE 7077138450 2 Active Silvia Arnold CONTACT CENTER CONSULTANT Active AZITHROMYCIN 250 MG TABS take 2 po today then take 1 po days 2-5 AZITHROMYCIN 30856250523 No Longer Active Adolfo OSORIO Active PERMETHRIN 5 % CREA apply neck to toes tonight a nd then rinse off in morning. repeat at 7 days PERMETHRIN 77701593193 No Longer Active Adolfo OSORIO Active AMOXICILLIN 500 MG CAPS 2 po BID x 10 days AMOX ICILLIN 21182343717 No Longer Active Yoli Mercado MD PhD Active ALPRAZOLAM 0.5 MG TAB 1 tab by mouth tid ALPRAZOL AM 68041105188 Active Nitza Mullins RPT,RMA Active INSUPEN ULTRAFIN 31G X 6 MM MISC USE DIRECTED 03/04 INSULIN PEN NEEDLE 45987081640 No Longer Active Bertrand Patel DO Active TRANSDERM-SCOP 1.5 MG PT72 1 patch applied behind ear q 3 day 20 04/13/28 SCOPOLAMINE BASE 29809839712 No Longer Active Bertrand Patel DO Active MACRODANTIN 100 MG CAPS one p.o. b.i.d. x2 weeks 03/04 NITROFURANTOIN MACROCRYSTAL 44483790770 No Longer Active Bertrand Patel DO Active MACRODANTIN 100 MG CAPS one p.o. b.i.d. x2 weeks 03/04 MACRODANTIN 100 MG CAPS 7398202 NITROFURANTOIN MACROCRYSTAL Inactive TRANSDERM-SCOP 1.5 MG PT72 [...] at 7 days PERMETHRIN 5 % CREA 359430 PERMETHRIN Inactive WELLBUTRIN 75 MG TABS 2 times daily WELLBUTRIN 75 MG TABS BUPROPION HCL Inactive CYMBALTA 30 MG CPEP 1 cap by mouth daily CYMBALTA 30 MG CPEP 645140 DULOXETINE HCL Inactive AZITHROMYCIN 500 MG SOLR 1 po q day ALTA THROMYCIN 500 MG SOLR 86855526881 AZITHROMYCIN Inactive CINNAMON ALPHA LIPOIC AC CMPLX CAPS by mouth twice a d ay in AM by mouth twice a day in PM CINNAMON ALPHA LIPOIC AC CMPLX CAPS ALPHA LIPOIC [id number]-[id number] CAPS Inactive MICARDIS HCT 80-12.5 MG TABS 1 qd MICARDI S HCT 80-12.5 MG TABS 585451 TELMISARTAN-HCTZ Inactive PRAVASTATIN SODIUM 20 MG TABS 1 tablet by mouth daily at bedtime PRAVASTATIN SODIUM 20 MG TABS 670765 PRAVASTATIN SODIUM Inactive FUROSEMIDE 20 MG TABS 1 pill by mouth daily if needed for edema FUROSEMIDE 20 MG TABS 039136 FUROSEMIDE Inactive METFORMIN HCL 500 MG TABS 1 bid METFORMIN HCL 500 MG TABS 683708 METFORMIN HCL Inactive B-12 1000 MCG CAPS 1 tab daily B-12 1000 MCG CAP S CYANOCOBALAMIN Inactive VITAMIN E 200 UNIT CAPS 1 cap po qd VITAMIN E 2 00 UNIT CAPS 2152280 VITAMIN E Inactive [facility] MELATONIN 5-10 MG CR-TABS Take one by mouth daily at bedtime [facility] MELATONIN 5-10 MG CR-TABS MELATONIN-PYRIDOXI NE Inactive LORTAB 7.5-500 MG TABS take one po Q6 hours LORTAB 7.5-500 MG TABS HYDROCODONE-ACETAMINOPHEN Inactive AZITHROMYCIN 250 MG ORAL TABS Take 2 tabs po today then 1 ta b po daily AZITHROMYCIN 250 MG ORAL TABS 5370301 AZITHROMYCI N Inactive SYMBICORT 160-4.5 MCG/ACT AERO 2 puffs BID SYMBICORT 160- 4.5 MCG/ACT AERO BUDESONIDE-FORMOTEROL FUMARATE Inactive ALBUTEROL SULFATE 0.083 % NEBU SOLN one vial per nebul izer every 4-6 hours as needed ALBUTEROL SULFATE 0.083 % NEBU SOLN 55966 8 ALBUTEROL SULFATE Inactive NEBULIZER MISC use as directed NEBULIZER MISC NEBULIZERS Inactive TESSALON PERLES 100 MG CAP 1 tablet by mouth 3 times daily 07/07 TESSALON PERLES 100 MG CAP 636679 BENZONATATE Inact jairo CYCLOBENZAPRINE HCL 10 MG TABS Take 1 tab TID PRN for muscle pain CYCLOBENZAPRINE HCL 10 MG TABS 227942 CYCLOBENZAPRINE HCL Inactive AUGMENTIN 875-125 MG TAB 1 po BID x 10 days AUGMENTIN 875- 125 MG TAB 659883 AMOXICILLIN-POT CLAVULANATE Inactive BACTROBAN 2 % CREAM Apply to affected area BID for up to 10 days BACTROBAN 2 % CREAM 699973 MUPIROCIN CALCIUM Inactive AMOXICILLIN 500 MG CAPS 2 po BID x 10 days AMOXICILLIN 500 MG CAPS 118451 AMOXICILLIN Inactive AZITHROMYCIN 250 MG TABS take 2 po today then take 1 po days 2-5 AZITHROMYCIN 250 MG TABS 9715961 AZITHROMYCIN Inactiv e LEVAQUIN 500 MG TABS 1 pill by mouth daily LEVAQUIN 500 MG TABS 610185 LEVOFLOXACIN Inactive AUGMENTIN 875-125 MG TABS 1 pill by mouth twice daily AUGMENTIN 875-125 MG TABS 148551 AMOXICILLIN-POT CLAVULANATE Inacti ve AUGMENTIN 875-125 MG TAB 1 po BID x 10 days AUGMENTIN 875- 125 MG TAB 249084 AMOXICILLIN-POT CLAVULANATE Inactive PREDNISONE 20 MG TAB take 3 tabs daily for 3 days , 2 tabs daily for 3 days, 1 tab daily for 3 days, 1/2 tab daily for 3 days PREDNISONE 20 MG TAB 952880 PREDNISONE Inactive CIPRO 500 MG TAB 1 tablet by mouth twice daily CIPRO 500 MG TAB 257671 CIPROFLOXACIN HCL Inactive Vital Signs Date Name [...] 56 mg/dL 30-200 cholesterol, serum 200 mg/dL 059-222 5481/07/22 hemoglobin A1C, blood, as % of total hemoglobin 5.8 % 4.3-6.0 albumin/creatinine ratio, urine < 30 mg/g mg/g{creat} 0-2 9 TSH 1.16 m[iU]/mL 0.36-3.74 sodium, serum 142 mmol/L 433-271 9474/07/22 carbon dioxide, venous blood 33.1 mmol/L 21.0-32 [...] 0-19 Encounters Code Encounter Date Provider Facility CPT-28375 Level 4 Est. Patient 12:31:54 CDT Bertrand marquez [facility] CPT-24334 Level 3 Est. Patient 11:27:00 WAX SPECIALIST Ike Deluna MD [facility] CPT-01223 Level 3 Est. Patient 08:50:57 WAX SPECIALIST Dangelo CONTACT CENTER CONSULTANT [facility] CPT-39735 Level 3 Est. Patient 10:04:13 CDT Bertrand marquez [facility] CPT-40754 Level 4 Est. Patient 16:02:10 WAX SPECIALIST Dangelo CONTACT CENTER CONSULTANT [facility] CPT-35039 Level 3 Est. Patient 13:04:54 WAX SPECIALIST Dangelo BARAJAS [facility] CPT-19708 Level 3 Est. Patient 12:56:37 CDT Bertrand marquez [facility] CPT-74604 Level 3 Est. Patient 19:12:03 CDT Yoli tolbert MD [facility] CPT-31569 Level 3 Est. Patient 14:36:01 CDT Yoli tolbert MD [facility] CPT-69619 Level 2 Est. Patient 08:00:22 CDT Jcarlos dc MD [facility]-22667 Level 3 Est. Patient 19:06:55 CDT Bertrand marquez [facility] CPT-91356 Level 3 Est. Patient 10:08:23 WAX SPECIALIST Bertrand marquez [facility] CPT-28800 Level 3 Est. Patient 16:37:54 WAX SPECIALIST Bertrand marquez [facility] CPT-76961 Level 3 Est. Patient 11:31:59 WAX SPECIALIST Bertrand marquez [facility] CPT-23378 Level 3 Est. Patient 10:20:08 CDT Adolfo villasenor [facility] CPT-18086 Level 3 Est. Patient 13:45:20 CDT Sanket buckley [facility] CPT-72418 Level 3 Est. Patient 12:51:06 CDT Adolfo villasenor [facility] CPT-99524 Level 3 Est. Patient 11:22:51 WAX SPECIALIST Yoli tolbert MD [facility] CPT-09154 Level 3 Est. Patient 13:33:19 CDT Bertrand marquez [facility] Procedures Code Procedure Name Date Entry Date Standard Desc ription CPT-57119 Wound Culture - LAB USE ONLY 15:45:25 CDT 2 CPT-70050 Venipuncture Draw Fee 10:23:01 CDT CPT-J0696 Rocephin 1000 mg (Ceftriaxone) 16:20:30 WAX SPECIALIST CPT-32988 Abx/Therapy Injection 16:20:29 WAX SPECIALIST CPT-J0696 Rocephin 1gm Inj Solr 15:51:59 WAX SPECIALIST CPT-02505 Chest 2V Frontal and Lat 15:20:28 WAX SPECIALIST 07/22 CPT-98135 Breathing Tx 14:51:55 WAX SPECIALIST CPT-93619 Breathing Tx 09:57:16 WAX SPECIALIST CPT-22620 Knee comp 4/> V 11:58:06 WAX SPECIALIST
--- OUTSIDE RECORDS SUMMARY | 2019-11-13 10:28 | XMS REPORT | Clinical Summary ---
Author Author Admin, Enrique Adamson Organization [employer] Address Unknown Phone Unavailable Allergies, Adverse Reactions, [...] chest pain KNEE PAIN, RIGHT 719.46 Active Adoflo OSORIO Pain in joint involving lower leg [...] SINUSITIS, ACUTE 461.9 Active Silvia PARISI emergency medicine sinusitis, unspecified Fatigue 780.79 Active Silvia Arnold [...] tablet by mouth twice daily CIPROFLOXACIN HCL 22009942443 No Longer Active Adriana Bender LPN Active AUGMENTIN 875-125 MG TAB 1 po BID x 10 days AMOXICILLIN- POT CLAVULANATE 50888370790 No Longer Active Adriana Bender LPN Active BACTROBAN 2 % CREAM Apply to affected area BID for up to 10 days 20 18/03/27 MUPIROCIN CALCIUM 10910186475 Active Silvia Arnold APRN Act jairo MODAFINIL 200 MG ORAL TABS Take 1/2 tab po in the am and 1/2 tab po at noon MODAFINIL 69403796582 Active Silvia Arnold APRN Active CYCLOBENZAPRINE HCL 10 MG TABS Take 1 tab TID PRN for muscle pain CYCLOBENZAPRINE HCL 20029029938 No Longer Active Bertrand Patel DO Ac tive TESSALON PERLES 100 MG CAP 1 tablet by mouth 3 times daily 07/07 BENZONATATE 48712781114 No Longer Active Bertrand Patel DO Ac tive NEBULIZER MISC use as directed NEBULIZERS 901074 71773 No Longer Active Bertrand Patel DO Active ALBUTEROL SULFATE 0.083 % NEBU SOLN one vial per nebul izer every 4-6 hours as needed ALBUTEROL SULFATE 97952173131 No Longer Active Bertrand Patel DO Active SYMBICORT 160-4.5 MCG/ACT AERO 2 puffs BID BUDESONIDE- FORMOTEROL FUMARATE 82603751758 No Longer Active Bertrand Patel DO Ac tive PREDNISONE 20 MG TAB take 3 tabs daily for 3 days , 2 tabs daily for 3 days, 1 tab daily for 3 days, 1/2 tab daily for 3 days P REDNISONE 22490557496 No Longer Active Silvia Arnold APRN Active AZITHROMYCIN 250 MG ORAL TABS Take 2 tabs po today then 1 ta b po daily AZITHROMYCIN 44258016478 No Longer Active Silvia gavin APRN Active AUGMENTIN 875-125 MG TAB 1 po BID x 10 days AMOXICILLIN- POT CLAVULANATE 56368885519 No Longer Active Adriana Bender LPN Active CHEWABLE CALCIUM 500-200-40 MG-UNT-MCG ORAL CHEW 1 chew tab bid 201 11/03/03 CALCIUM-VITAMIN D-VITAMIN K 52292631658 Active Silvia Arnold APRN Active EQ COMPLETE MULTIVIT ADULT 50+ ORAL TABS 1 tab po bid MULTIPLE VITAMINS-MINERALS 34328185217 Active Silvia Arnold APRN Act jairo HYDROCODONE-ACETAMINOPHEN 7.5-325 MG TABS TAKE ONE TAB EVERY 6 HOURS BY MOUTH NEEDED FOR PAIN HYDROCODONE-ACETAMINOPHEN 37614072481 Acti ve Lizy العلي Active LORTAB 7.5-500 MG TABS take one po Q6 hours HYDROCODONE-ACETAMINOPHEN No Longer Active Nirmal Robbins RN Active [facility] MELATONIN 5-10 MG CR-TABS Take one by mouth daily at bedtime MELATONIN-PYRIDOXINE 11450067208 No Longer Active Bertrand Patel DO Active VITAMIN E 200 UNIT CAPS 1 cap po qd VITAMIN E 316 61138131 No Longer Active Bertrand Patel DO Active B-12 1000 MCG CAPS 1 tab daily CYANOCOBALAMIN 31 264285525 No Longer Active Bertrand Patel DO Active METFORMIN HCL 500 MG TABS 1 bid METFORMIN HCL 99716495893 No Longer Active Bertrand Patel DO Active FUROSEMIDE 20 MG TABS 1 pill by mouth daily if needed for edema FUROSEMIDE 18602321137 No Longer Active Bertrand Patel DO Act jairo PRAVASTATIN SODIUM 20 MG TABS 1 tablet by mouth daily at bedtime PRAVASTATIN SODIUM 11426439477 No Longer Active Bertrand Patel DO Active AUGMENTIN 875-125 MG TABS 1 pill by mouth twice daily AMOXICILLIN-POT CLAVULANATE 13076484110 No Longer Active Yoli Mercado MD PhD Active LEVAQUIN 500 MG TABS 1 pill by mouth daily LEVO FLOXACIN 59491210381 No Longer Active Yoli Mercado MD PhD Active AMLODIPINE BESYLATE 5 MG TABS 1 tablet by mouth daily for bl ood pressure AMLODIPINE BESYLATE 45271872887 Active Keysha Jones MA Active MICARDIS 80 MG TABS 1 tablet daily for blood pressure TELMISARTAN 90740554235 Active Keysha Jones MA Active MICARDIS HCT 80-12.5 MG TABS 1 qd TELMISARTA N-HCTZ 14863283381 No Longer Active Bertrand Patel DO Active CINNAMON ALPHA LIPOIC AC CMPLX CAPS by mouth twice a d ay in AM by mouth twice a day in PM ALPHA LIPOIC [id number] CAPS 396937 63025 No Longer Active Bertrand Patel DO Active AZITHROMYCIN 500 MG SOLR 1 po q day AZITHROMYCI N 77073323102 No Longer Active Bertrand Patel DO Active CYMBALTA 30 MG CPEP 1 cap by mouth daily DULOXE CATHI HCL 62684950571 No Longer Active Bertrand Patel DO Active CYMBALTA 60 MG CPEP 1 cap by mouth daily DULOXE CATHI HCL 45062959807 Active Keysha Jones MA Active WELLBUTRIN 75 MG TABS 2 times daily BUPROPION H CL 07400385878 No Longer Active Bertrand Patel DO Active PROAIR HFA 108 (90 BASE) MCG/ACT AERS take one to two puffs po Q4-6 hour prn cough and shortness of breath ALBUTEROL SULFATE 7913041845 2 Active Silvia Arnold ECONOMIC ANALYSIS DIRECTOR Active AZITHROMYCIN 250 MG TABS take 2 po today then take 1 po days 2-5 AZITHROMYCIN 24133287849 No Longer Active Adolfo OSORIO Active PERMETHRIN 5 % CREA apply neck to toes tonight a nd then rinse off in morning. repeat at 7 days PERMETHRIN 48543405737 No Longer Active Adolfo OSORIO Active AMOXICILLIN 500 MG CAPS 2 po BID x 10 days AMOX ICILLIN 73624245530 No Longer Active Yoli Mercado MD PhD Active ALPRAZOLAM 0.5 MG TAB 1 tab by mouth tid ALPRAZOL AM 10318085226 Active Nitza Mullins RPT,RMA Active INSUPEN ULTRAFIN 31G X 6 MM MISC USE DIRECTED 03/04 INSULIN PEN NEEDLE 97766206325 No Longer Active Bertrand Patel DO Active TRANSDERM-SCOP 1.5 MG PT72 1 patch applied behind ear q 3 day 20 04/13/28 SCOPOLAMINE BASE 14299807445 No Longer Active Bertrand Patel DO Active MACRODANTIN 100 MG CAPS one p.o. b.i.d. x2 weeks 03/04 NITROFURANTOIN MACROCRYSTAL 84655614082 No Longer Active Bertrand Patel DO Active MACRODANTIN 100 MG CAPS one p.o. b.i.d. x2 weeks 03/04 MACRODANTIN 100 MG CAPS 4514442 NITROFURANTOIN MACROCRYSTAL Inactive TRANSDERM-SCOP 1.5 MG PT72 [...] at 7 days PERMETHRIN 5 % CREA 780667 PERMETHRIN Inactive WELLBUTRIN 75 MG TABS 2 times daily WELLBUTRIN 75 MG TABS BUPROPION HCL Inactive CYMBALTA 30 MG CPEP 1 cap by mouth daily CYMBALTA 30 MG CPEP 593890 DULOXETINE HCL Inactive AZITHROMYCIN 500 MG SOLR 1 po q day ALTA THROMYCIN 500 MG SOLR 17631634848 AZITHROMYCIN Inactive CINNAMON ALPHA LIPOIC AC CMPLX CAPS by mouth twice a d ay in AM by mouth twice a day in PM CINNAMON ALPHA LIPOIC AC CMPLX CAPS ALPHA LIPOIC [id number] CAPS Inactive MICARDIS HCT 80-12.5 MG TABS 1 qd MICARDI S HCT 80-12.5 MG TABS 874379 TELMISARTAN-HCTZ Inactive PRAVASTATIN SODIUM 20 MG TABS 1 tablet by mouth daily at bedtime PRAVASTATIN SODIUM 20 MG TABS 562699 PRAVASTATIN SODIUM Inactive FUROSEMIDE 20 MG TABS 1 pill by mouth daily if needed for edema FUROSEMIDE 20 MG TABS 491743 FUROSEMIDE Inactive METFORMIN HCL 500 MG TABS 1 bid METFORMIN HCL 500 MG TABS 858771 METFORMIN HCL Inactive B-12 1000 MCG CAPS 1 tab daily B-12 1000 MCG CAP S CYANOCOBALAMIN Inactive VITAMIN E 200 UNIT CAPS 1 cap po qd VITAMIN E 2 00 UNIT CAPS 0562412 VITAMIN E Inactive [facility] MELATONIN 5-10 MG CR-TABS Take one by mouth daily at bedtime [facility] MELATONIN 5-10 MG CR-TABS MELATONIN-PYRIDOXI NE Inactive LORTAB 7.5-500 MG TABS take one po Q6 hours LORTAB 7.5-500 MG TABS HYDROCODONE-ACETAMINOPHEN Inactive AZITHROMYCIN 250 MG ORAL TABS Take 2 tabs po today then 1 ta b po daily AZITHROMYCIN 250 MG ORAL TABS 7049391 AZITHROMYCI N Inactive SYMBICORT 160-4.5 MCG/ACT AERO 2 puffs BID SYMBICORT 160- 4.5 MCG/ACT AERO BUDESONIDE-FORMOTEROL FUMARATE Inactive ALBUTEROL SULFATE 0.083 % NEBU SOLN one vial per nebul izer every 4-6 hours as needed ALBUTEROL SULFATE 0.083 % NEBU SOLN 67163 8 ALBUTEROL SULFATE Inactive NEBULIZER MISC use as directed NEBULIZER MISC NEBULIZERS Inactive TESSALON PERLES 100 MG CAP 1 tablet by mouth 3 times daily 07/07 TESSALON PERLES 100 MG CAP 964431 BENZONATATE Inact jairo CYCLOBENZAPRINE HCL 10 MG TABS Take 1 tab TID PRN for muscle pain CYCLOBENZAPRINE HCL 10 MG TABS 627178 CYCLOBENZAPRINE HCL Inactive AUGMENTIN 875-125 MG TAB 1 po BID x 10 days AUGMENTIN 875- 125 MG TAB 362618 AMOXICILLIN-POT CLAVULANATE Inactive AMOXICILLIN 500 MG CAPS 2 po BID x 10 days AMOXICILLIN 500 MG CAPS 882038 AMOXICILLIN Inactive AZITHROMYCIN 250 MG TABS take 2 po today then take 1 po days 2-5 AZITHROMYCIN 250 MG TABS 2669839 AZITHROMYCIN Inactiv e LEVAQUIN 500 MG TABS 1 pill by mouth daily LEVAQUIN 500 MG TABS 955222 LEVOFLOXACIN Inactive AUGMENTIN 875-125 MG TABS 1 pill by mouth twice daily AUGMENTIN 875-125 MG TABS 459640 AMOXICILLIN-POT CLAVULANATE Inacti ve AUGMENTIN 875-125 MG TAB 1 po BID x 10 days AUGMENTIN 875- 125 MG TAB 884805 AMOXICILLIN-POT CLAVULANATE Inactive PREDNISONE 20 MG TAB take 3 tabs daily for 3 days , 2 tabs daily for 3 days, 1 tab daily for 3 days, 1/2 tab daily for 3 days PREDNISONE 20 MG TAB 993581 PREDNISONE Inactive CIPRO 500 MG TAB 1 tablet by mouth twice daily CIPRO 500 MG TAB 322728 CIPROFLOXACIN HCL Inactive Vital Signs Date Name [...] 5.8 % 4.3-6.0 cholesterol, serum 200 mg/dL 966-880 1672/07/22 triglyceride, serum, fasting 56 mg/dL 30-200 HDL cholesterol, serum 80 mg/dL 32-96 LDL cholesterol, serum 109 mg/dL 0-130 albumin/creatinine ratio, urine < 30 mg/g mg/g{creat} 0-2 9 TSH 1.16 m[iU]/mL 0.36-3.74 sodium, serum 142 mmol/L 165-712 7519/07/22 carbon dioxide, venous blood 33.1 mmol/L 21.0-32 [...] Negative;Positive Encounters Code Encounter Date Provider Facility CPT-79099 Level 3 Est. Patient 08:50:57 BILLET HEATER Silvia And dmitriy [facility] CPT-47337 Level 3 Est. Patient 10:04:13 CDT Bertrand marquez [facility] CPT-86957 Level 4 Est. Patient 16:02:10 BILLET HEATER Silvia And dmitriy [facility] CPT-16498 Level 3 Est. Patient 13:04:54 BILLET HEATER Dangelo [facility] CPT-97246 Level 3 Est. Patient 12:56:37 CDT Bertrand marquez [facility] CPT-93769 Level 3 Est. Patient 19:12:03 CDT Yoli tolbert MD PhD [facility] CPT-51903 Level 3 Est. Patient 14:36:01 CDT Yoli tolbert MD PhD [facility] CPT-67715 Level 2 Est. Patient 08:00:22 CDT Jcarlos dc MD [facility] CPT-39722 Level 3 Est. Patient 19:06:55 CDT Bertrand marquez [facility] CPT-52460 Level 3 Est. Patient 10:08:23 BILLET HEATER Bertrand marquez [facility] CPT-79232 Level 3 Est. Patient 16:37:54 BILLET HEATER Bertrand marquez [facility] CPT-16112 Level 3 Est. Patient 11:31:59 BILLET HEATER Bertrand marquez [facility] CPT-61502 Level 3 Est. Patient 10:20:08 CDT Adolfo villasenor [facility] CPT-74553 Level 3 Est. Patient 13:45:20 CDT Sanket buckley [facility] CPT-82925 Level 3 Est. Patient 12:51:06 CDT Adolfo villasenor [facility] CPT-54078 Level 3 Est. Patient 11:22:51 BILLET HEATER Yoli tolbert MD [facility] CPT-06392 Level 3 Est. Patient 13:33:19 CDT Bertrand marquez [facility] Procedures Code Procedure Name Date Entry Date Standard Desc ription CPT-40160 Wound Culture - LAB USE ONLY 15:45:25 CDT 2 CPT-62243 Venipuncture Draw Fee 10:23:01 CDT CPT-J0696 Rocephin 1000 mg (Ceftriaxone) 16:20:30 BILLET HEATER CPT-22149 Abx/Therapy Injection 16:20:29 BILLET HEATER CPT-J0696 Rocephin 1gm Inj Solr 15:51:59 BILLET HEATER CPT-40522 Chest 2V Frontal and Lat 15:20:28 BILLET HEATER 07/22 CPT-88616 Breathing Tx 14:51:55 BILLET HEATER CPT-89882 Breathing Tx 09:57:16 BILLET HEATER CPT-67616 Knee comp 4/> V 11:58:06 BILLET HEATER
--- OUTSIDE RECORDS SUMMARY | 2019-11-13 10:29 | XMS REPORT | Clinical Summary ---
Author Author Admin, Enrique Adamson Organization [employer] Address Unknown Phone Unavailable Allergies, Adverse Reactions, [...] without cataplexy Animal bite 919.8 Active Silvia Anrold APRN Other and unspecified superficial injury of [...] NDC Status Provider Patient Instruction VITAMIN D3 87014 UNIT CAPS 1 pill Week x 4 months for vitamin D deficiency/osteoporosis CHOLECALCIFEROL 05697171818 Active Darlyn Monzon Active BENZONATATE 200 MG ORAL CAPS 1 three times a day as needed for c ough BENZONATATE 95289311340 Active Ike Deluna MD Acti ve ZITHROMAX Z-MARTIN 250 MG TABS 2 today and then 1 daily for 4 days 201 12/01/06 AZITHROMYCIN 78227507677 Active Ike Deluna MD Active ADDERALL 10 MG ORAL TABS 1 tab twice daily AMPHETAMINE-DEXTROAMPHETAMINE 69200667819 Active Ike Deluna MD Active BACTROBAN 2 % CREAM Apply to affected area BID for up to 10 days MUPIROCIN CALCIUM 11117054744 No Longer Active Ike Deluna MD Active CIPRO 500 MG TAB 1 tablet by mouth twice daily CIPROFLOXACIN HCL 49394226297 No Longer Active Adriana Bender LPN Active AUGMENTIN 875-125 MG TAB 1 po BID x 10 days AMOXICILLIN- POT CLAVULANATE 49921890423 No Longer Active Adriana Bender LPN Active MODAFINIL 200 MG ORAL TABS Take 1/2 tab po in the am and 1/2 tab po at noon MODAFINIL 34701498336 Active Bertrand Patel DO Ac tive CYCLOBENZAPRINE HCL 10 MG TABS Take 1 tab TID PRN for muscle pain CYCLOBENZAPRINE HCL 05777543873 No Longer Active Bertrand Patel DO Ac tive TESSALON PERLES 100 MG CAP 1 tablet by mouth 3 times daily 07/07 BENZONATATE 48902698523 No Longer Active Bertrand Patel DO Ac tive NEBULIZER MISC use as directed NEBULIZERS 384928 74113 No Longer Active Bertrand Patel DO Active ALBUTEROL SULFATE 0.083 % NEBU SOLCammy one vial per nebul izer every 4-6 hours as needed ALBUTEROL SULFATE 95388479936 No Longer Active Bertrand Patel DO Active SYMBICORT 160-4.5 MCG/ACT AERO 2 puffs BID BUDESONIDE- FORMOTEROL FUMARATE 69173586780 No Longer Active Bertrand Patel DO Ac tive PREDNISONE 20 MG TAB take 3 tabs daily for 3 days , 2 tabs daily for 3 days, 1 tab daily for 3 days, 1/2 tab daily for 3 days P REDNISONE 77659789180 No Longer Active Silvia Arnold APRN Active AZITHROMYCIN 250 MG ORAL TABS Take 2 tabs po today then 1 ta b po daily AZITHROMYCIN 55510599885 No Longer Active Silvia Jorge leslye 2 YEAR [employer] Active AUGMENTIN 875-125 MG TAB 1 po BID x 10 days AMOXICILLIN- POT CLAVULANATE 13329588370 No Longer Active Adriana Bender LPN Active CHEWABLE CALCIUM 500-200-40 MG-UNT-MCG ORAL CHEW 1 chew tab bid 201 11/03/03 CALCIUM-VITAMIN D-VITAMIN K 52818846128 Active Silvia Arnold APRN Active EQ COMPLETE MULTIVIT ADULT 50+ ORAL TABS 1 tab po bid MULTIPLE VITAMINS-MINERALS 87827595624 Active Silvia Arnold APRN Act jairo HYDROCODONE-ACETAMINOPHEN 7.5-325 MG TABS TAKE ONE TAB EVERY 6 HOURS BY MOUTH NEEDED FOR PAIN HYDROCODONE-ACETAMINOPHEN 70993559485 Acti ve Bertrand Patel DO Active LORTAB 7.5-500 MG TABS take one po Q6 hours HYDROCODONE-ACETAMINOPHEN No Longer Active Nirmal Robbins RN Active [facility] MELATONIN 5-10 MG CR-TABS Take one by mouth daily at bedtime MELATONIN-PYRIDOXINE 68864708052 No Longer Active Bertrand Patel DO Active VITAMIN E 200 UNIT CAPS 1 cap po qd VITAMIN E 316 91742372 No Longer Active Bertrand Patel DO Active B-12 1000 MCG CAPS 1 tab daily CYANOCOBALAMIN 31 345656635 No Longer Active Bertrand Patel DO Active METFORMIN HCL 500 MG TABS 1 bid METFORMIN HCL 82131130096 No Longer Active Bertrand Patel DO Active FUROSEMIDE 20 MG TABS 1 pill by mouth daily if needed for edema FUROSEMIDE 50478120620 No Longer Active Bertrand Patel DO Act jairo PRAVASTATIN SODIUM 20 MG TABS 1 tablet by mouth daily at bedtime PRAVASTATIN SODIUM 57890423920 No Longer Active Bertrand Patel DO Active AUGMENTIN 875-125 MG TABS 1 pill by mouth twice daily AMOXICILLIN-POT CLAVULANATE 74159982054 No Longer Active Yoli Mercado MD PhD Active LEVAQUIN 500 MG TABS 1 pill by mouth daily LEVO FLOXACIN 62157489051 No Longer Active Yoli Mercado MD PhD Active AMLODIPINE BESYLATE 5 MG TABS 1 tablet by mouth daily for bl ood pressure AMLODIPINE BESYLATE 76732005234 Active Darlyn Monzon Active MICARDIS 80 MG TABS 1 tablet daily for blood pressure TELMISARTAN 73820225194 Active Darlyn Monzon Active MICARDIS HCT 80-12.5 MG TABS 1 qd TELMISARTA N-HCTZ 23502259244 No Longer Active Bertrand Patel DO Active CINNAMON ALPHA LIPOIC AC CMPLX CAPS by mouth twice a d ay in AM by mouth twice a day in PM ALPHA LIPOIC [id number] CAPS 206957 10269 No Longer Active Bertrand Patel DO Active AZITHROMYCIN 500 MG SOLR 1 po q day AZITHROMYCI N 45187855554 No Longer Active Bertrand Patel DO Active CYMBALTA 30 MG CPEP 1 cap by mouth daily DULOXE CATHI HCL 69336649807 No Longer Active Bertrand Patel DO Active CYMBALTA 60 MG CPEP 1 cap by mouth daily DULOXE CATHI HCL 22782189314 Active Darlyn Monzon Active WELLBUTRIN 75 MG TABS 2 times daily BUPROPION H CL 99603081373 No Longer Active Bertrand Patel DO Active PROAIR HFA 108 (90 BASE) MCG/ACT AERS take one to two puffs po Q4-6 hour prn cough and shortness of breath ALBUTEROL SULFATE 4348484864 2 Active Silvia Arnold 2 YEAR [employer] Active AZITHROMYCIN 250 MG TABS take 2 po today then take 1 po days 2-5 AZITHROMYCIN 09966113960 No Longer Active Adolfo OSORIO Active PERMETHRIN 5 % CREA apply neck to toes tonight a nd then rinse off in morning. repeat at 7 days PERMETHRIN 14854784237 No Longer Active Adolfo OSORIO Active AMOXICILLIN 500 MG CAPS 2 po BID x 10 days AMOX ICILLIN 80035540591 No Longer Active Yoli Mercado MD PhD Active ALPRAZOLAM 0.5 MG TAB 1 tab by mouth tid ALPRAZOL AM 53054053639 Active Nitza Mullins SEC[employer]ITY [employer]OVER Active INSUPEN ULTRAFIN 31G X 6 MM MISC USE DIRECTED 03/04 INSULIN PEN NEEDLE 81951315983 No Longer Active Bertrand Patel DO Active TRANSDERM-SCOP 1.5 MG PT72 1 patch applied behind ear q 3 day 20 04/13/28 SCOPOLAMINE BASE 29201043184 No Longer Active Bertrand Patel DO Active MACRODANTIN 100 MG CAPS one p.o. b.i.d. x2 weeks 03/04 NITROFURANTOIN MACROCRYSTAL 76841974020 No Longer Active Bertrand Patel DO Active MACRODANTIN 100 MG CAPS one p.o. b.i.d. x2 weeks 03/04 MACRODANTIN 100 MG CAPS 4898930 NITROFURANTOIN MACROCRYSTAL Inactive TRANSDERM-SCOP 1.5 MG PT72 [...] at 7 days PERMETHRIN 5 % CREA 792265 PERMETHRIN Inactive WELLBUTRIN 75 MG TABS 2 times daily WELLBUTRIN 75 MG TABS 015100 BUPROPION HCL Inactive CYMBALTA 30 MG CPEP 1 cap by mouth daily CYMBALTA 30 MG CPEP 134043 DULOXETINE HCL Inactive AZITHROMYCIN 500 MG SOLR 1 po q day ALTA THROMYCIN 500 MG SOLR 18291570106 AZITHROMYCIN Inactive CINNAMON ALPHA LIPOIC AC CMPLX CAPS by mouth twice a d ay in AM by mouth twice a day in PM CINNAMON ALPHA LIPOIC AC CMPLX CAPS ALPHA LIPOIC [id number] CAPS Inactive MICARDIS HCT 80-12.5 MG TABS 1 qd MICARDI S HCT 80-12.5 MG TABS 185355 TELMISARTAN-HCTZ Inactive PRAVASTATIN SODIUM 20 MG TABS 1 tablet by mouth daily at bedtime PRAVASTATIN SODIUM 20 MG TABS 325875 PRAVASTATIN SODIUM Inactive FUROSEMIDE 20 MG TABS 1 pill by mouth daily if needed for edema FUROSEMIDE 20 MG TABS 233428 FUROSEMIDE Inactive METFORMIN HCL 500 MG TABS 1 bid METFORMIN HCL 500 MG TABS 133728 METFORMIN HCL Inactive B-12 1000 MCG CAPS 1 tab daily B-12 1000 MCG CAP S CYANOCOBALAMIN Inactive VITAMIN E 200 UNIT CAPS 1 cap po qd VITAMIN E 2 00 UNIT CAPS 8096849 VITAMIN E Inactive [facility] MELATONIN 5-10 MG CR-TABS Take one by mouth daily at bedtime [facility] MELATONIN 5-10 MG CR-TABS MELATONIN-PYRIDOXI NE Inactive LORTAB 7.5-500 MG TABS take one po Q6 hours LORTAB 7.5-500 MG TABS 366988 HYDROCODONE-ACETAMINOPHEN Inactive AZITHROMYCIN 250 MG ORAL TABS Take 2 tabs po today then 1 ta b po daily AZITHROMYCIN 250 MG ORAL TABS 859044 AZITHROMYCI N Inactive SYMBICORT 160-4.5 MCG/ACT AERO 2 puffs BID SYMBICORT 160- 4.5 MCG/ACT AERO BUDESONIDE-FORMOTEROL FUMARATE Inactive ALBUTEROL SULFATE 0.083 % NEBU SOLN one vial per nebul izer every 4-6 hours as needed ALBUTEROL SULFATE 0.083 % NEBU SOLN 95878 8 ALBUTEROL SULFATE Inactive NEBULIZER MISC use as directed NEBULIZER MISC NEBULIZERS Inactive TESSALON PERLES 100 MG CAP 1 tablet by mouth 3 times daily 07/07 TESSALON PERLES 100 MG CAP 561943 BENZONATATE Inact jairo CYCLOBENZAPRINE HCL 10 MG TABS Take 1 tab TID PRN for muscle pain CYCLOBENZAPRINE HCL 10 MG TABS 268440 CYCLOBENZAPRINE HCL Inactive AUGMENTIN 875-125 MG TAB 1 po BID x 10 days AUGMENTIN 875- 125 MG TAB 735734 AMOXICILLIN-POT CLAVULANATE Inactive BACTROBAN 2 % CREAM Apply to affected area BID for up to 10 days BACTROBAN 2 % CREAM 192329 MUPIROCIN CALCIUM Inactive AMOXICILLIN 500 MG CAPS 2 po BID x 10 days AMOXICILLIN 500 MG CAPS 070316 AMOXICILLIN Inactive AZITHROMYCIN 250 MG TABS take 2 po today then take 1 po days 2-5 AZITHROMYCIN 250 MG TABS 383008 AZITHROMYCIN Inactiv e LEVAQUIN 500 MG TABS 1 pill by mouth daily LEVAQUIN 500 MG TABS 439331 LEVOFLOXACIN Inactive AUGMENTIN 875-125 MG TABS 1 pill by mouth twice daily AUGMENTIN 875-125 MG TABS 171209 AMOXICILLIN-POT CLAVULANATE Inacti ve AUGMENTIN 875-125 MG TAB 1 po BID x 10 days AUGMENTIN 875- 125 MG TAB 034932 AMOXICILLIN-POT CLAVULANATE Inactive PREDNISONE 20 MG TAB take 3 tabs daily for 3 days , 2 tabs daily for 3 days, 1 tab daily for 3 days, 1/2 tab daily for 3 days PREDNISONE 20 MG TAB 128030 PREDNISONE Inactive CIPRO 500 MG TAB 1 tablet by mouth twice daily CIPRO 500 MG TAB 843899 CIPROFLOXACIN HCL Inactive Vital Signs Date Name [...] 0-19 Encounters Code Encounter Date Provider Facility CPT-57591 Level 4 Est. Patient 12:31:54 CDT Bertrand marquez [facility] CPT-14299 Level 3 Est. Patient 11:27:00 FISHER QUAHOG Ike Deluna MD [facility]-37508 Level 3 Est. Patient 08:50:57 FISHER QUAHOG Dangelo BARAJAS [facility] CPT-12429 Level 3 Est. Patient 10:04:13 CDT Bertrand marquez [facility] CPT-89121 Level 4 Est. Patient 16:02:10 FISHER QUAHOG Dangelo 4 YEAR [employer] [facility] CPT-39560 Level 3 Est. Patient 13:04:54 FISHER QUAHOG Dangelo 4 YEAR OL[employer] [facility]-76677 Level 3 Est. Patient 12:56:37 CDT Bertrand marquez [facility] CPT-86283 Level 3 Est. Patient 19:12:03 CDT Yoli tolbert MD PhD [facility] CPT-38593 Level 3 Est. Patient 14:36:01 CDT Yoli tolbert MD [facility] CPT-60904 Level 2 Est. Patient 08:00:22 CDT Jcarlos dc MD [facility]-43937 Level 3 Est. Patient 19:06:55 CDT Bertrand marquez [facility] CPT-98946 Level 3 Est. Patient 10:08:23 FISHER QUAHOG Bertrand marquez [facility] CPT-56682 Level 3 Est. Patient 16:37:54 FISHER QUAHOG Bertrand marquez [facility] CPT-77338 Level 3 Est. Patient 11:31:59 FISHER QUAHOG Bertrand marquez [facility] CPT-50700 Level 3 Est. Patient 10:20:08 CDT Adolfo villasenor [facility]-07601 Level 3 Est. Patient 13:45:[address] [facility] CPT-55118 Level 3 Est. Patient 12:51:06 CDT [address] villasenor [facility] CPT-37751 Level 3 Est. Patient 11:22:51 FISHER QUAHOG Yoli tolbert MD PhD [facility] CPT-51492 Level 3 Est. Patient 13:33:19 CDT Bertrand Sabillon ee DO [facility] Procedures Code Procedure Name Date Entry Date Standard Desc ription CPT-14516 Wound Culture - LAB USE ONLY 15:45:25 CDT 2 CPT-17406 Venipuncture Draw Fee 10:23:01 CDT CPT-J0696 Rocephin 1000 mg (Ceftriaxone) 16:20:30 FISHER QUAHOG CPT-42302 Abx/Therapy Injection 16:20:29 FISHER QUAHOG CPT-J0696 Rocephin 1gm Inj Solr 15:51:59 FISHER QUAHOG CPT-90348 Chest 2V Frontal and Lat 15:20:28 FISHER QUAHOG 07/22 CPT-41037 Breathing Tx 14:51:55 FISHER QUAHOG CPT-54409 Breathing Tx 09:57:16 FISHER QUAHOG CPT-07819 Knee comp 4/> V 11:58:06 FISHER QUAHOG
--- OUTSIDE RECORDS SUMMARY | 2019-11-13 10:29 | XMS REPORT | Clinical Summary ---
Author Author Admin, Enrique Adamson Organization [employer] Address Unknown Phone Unavailable Allergies, Adverse Reactions, [...] NDC Status Provider Patient Instruction VITAMIN D3 20225 UNIT CAPS 1 pill Week x 4 months for vitamin D deficiency/osteoporosis CHOLECALCIFEROL 58442358672 Active Darlyn Monzon Active BENZONATATE 200 MG ORAL CAPS 1 three times a day as needed for c ough BENZONATATE 46400660487 Active Ike Deluna MD Acti ve ZITHROMAX Z-MARTIN 250 MG TABS 2 today and then 1 daily for 4 days 201 12/01/06 AZITHROMYCIN 57529885275 Active Ike Deluna MD Active ADDERALL 10 MG ORAL TABS 1 tab twice daily AMPHETAMINE-DEXTROAMPHETAMINE 43076111816 Active Ike Deluna MD Active BACTROBAN 2 % CREAM Apply to affected area BID for up to 10 days MUPIROCIN CALCIUM 72090680323 No Longer Active Ike Deluna MD Active CIPRO 500 MG TAB 1 tablet by mouth twice daily CIPROFLOXACIN HCL 04811913091 No Longer Active Adriana Bender LPN Active AUGMENTIN 875-125 MG TAB 1 po BID x 10 days AMOXICILLIN- POT CLAVULANATE 61342478578 No Longer Active Adriana Bender LPN Active MODAFINIL 200 MG ORAL TABS Take 1/2 tab po in the am and 1/2 tab po at noon MODAFINIL 09604812771 Active Darlyn Monzon A ctive CYCLOBENZAPRINE HCL 10 MG TABS Take 1 tab TID PRN for muscle pain CYCLOBENZAPRINE HCL 24010859630 No Longer Active Bertrand Patel DO Ac tive TESSALON PERLES 100 MG CAP 1 tablet by mouth 3 times daily 07/07 BENZONATATE 24410758659 No Longer Active Bertrand Patel DO Ac tive NEBULIZER MISC use as directed NEBULIZERS 272636 66277 No Longer Active Bertrand Patel DO Active ALBUTEROL SULFATE 0.083 % NEBU SOLN one vial per nebul izer every 4-6 hours as needed ALBUTEROL SULFATE 22947986201 No Longer Active Bertrand Patel DO Active SYMBICORT 160-4.5 MCG/ACT AERO 2 puffs BID BUDESONIDE- FORMOTEROL FUMARATE 82497666883 No Longer Active Bertrand Patel DO Ac tive PREDNISONE 20 MG TAB take 3 tabs daily for 3 days , 2 tabs daily for 3 days, 1 tab daily for 3 days, 1/2 tab daily for 3 days P REDNISONE 58344667651 No Longer Active Silvia Arnold APRN Active AZITHROMYCIN 250 MG ORAL TABS Take 2 tabs po today then 1 ta b po daily AZITHROMYCIN 79043211506 No Longer Active Silvia Jorge leslye TOVARN Active AUGMENTIN 875-125 MG TAB 1 po BID x 10 days AMOXICILLIN- POT CLAVULANATE 40042711662 No Longer Active Adriana Bender LPN Active CHEWABLE CALCIUM 500-200-40 MG-UNT-MCG ORAL CHEW 1 chew tab bid 201 11/03/03 CALCIUM-VITAMIN D-VITAMIN K 22417461253 Active Silvia Arnold APRN Active EQ COMPLETE MULTIVIT ADULT 50+ ORAL TABS 1 tab po bid MULTIPLE VITAMINS-MINERALS 48317576990 Active Silvia Arnold APRN Act jairo HYDROCODONE-ACETAMINOPHEN 7.5-325 MG TABS TAKE ONE TAB EVERY 6 HOURS BY MOUTH NEEDED FOR PAIN HYDROCODONE-ACETAMINOPHEN 85025376480 Acti raheel Mcmullen Active LORTAB 7.5-500 MG TABS take one po Q6 hours HYDROCODONE-ACETAMINOPHEN No Longer Active Nirmal Robbins RN Active [facility] MELATONIN 5-10 MG CR-TABS Take one by mouth daily at bedtime MELATONIN-PYRIDOXINE 84132496266 No Longer Active Bertrand Patel DO Active VITAMIN E 200 UNIT CAPS 1 cap po qd VITAMIN E 316 54603534 No Longer Active Bertrand Patel DO Active B-12 1000 MCG CAPS 1 tab daily CYANOCOBALAMIN 31 262983149 No Longer Active Bertrand Patel DO Active METFORMIN HCL 500 MG TABS 1 bid METFORMIN HCL 05587193262 No Longer Active Bertrand Patel DO Active FUROSEMIDE 20 MG TABS 1 pill by mouth daily if needed for edema FUROSEMIDE 15693948869 No Longer Active Bertrand Patel DO Act jairo PRAVASTATIN SODIUM 20 MG TABS 1 tablet by mouth daily at bedtime PRAVASTATIN SODIUM 16225815901 No Longer Active Bertrand Patel DO Active AUGMENTIN 875-125 MG TABS 1 pill by mouth twice daily AMOXICILLIN-POT CLAVULANATE 87099523667 No Longer Active Yoli Mercado MD PhD Active LEVAQUIN 500 MG TABS 1 pill by mouth daily LEVO FLOXACIN 51493212352 No Longer Active Yoli Mercado MD PhD Active AMLODIPINE BESYLATE 5 MG TABS 1 tablet by mouth daily for bl ood pressure AMLODIPINE BESYLATE 95367023952 Active Darlyn Monzon Active MICARDIS 80 MG TABS 1 tablet daily for blood pressure TELMISARTAN 75043080227 Active Darlyn Monzon Active MICARDIS HCT 80-12.5 MG TABS 1 qd TELMISARTA N-HCTZ 03877501776 No Longer Active Bertrand Patel DO Active CINNAMON ALPHA LIPOIC AC CMPLX CAPS by mouth twice a d ay in AM by mouth twice a day in PM ALPHA LIPOIC [id number] CAPS 180165 59187 No Longer Active Bertrand Patel DO Active AZITHROMYCIN 500 MG SOLR 1 po q day AZITHROMYCI N 23689723927 No Longer Active Bertrand Patel DO Active CYMBALTA 30 MG CPEP 1 cap by mouth daily DULOXE CATHI HCL 94598855855 No Longer Active Bertrand Patel DO Active CYMBALTA 60 MG CPEP 1 cap by mouth daily DULOXE CATHI HCL 32798404152 Active Keysha Jones MA Active WELLBUTRIN 75 MG TABS 2 times daily BUPROPION H CL 77483809650 No Longer Active Bertrand W Jorge DO Active PROAIR HFA 108 (90 BASE) MCG/ACT AERS take one to two puffs po Q4-6 hour prn cough and shortness of breath ALBUTEROL SULFATE 5795443688 2 Active Silvia Arnold [employer] DIRECT[employer] Active AZITHROMYCIN 250 MG TABS take 2 po today then take 1 po days 2-5 AZITHROMYCIN 36999150204 No Longer Active Adolfo OSORIO Active PERMETHRIN 5 % CREA apply neck to toes tonight a nd then rinse off in morning. repeat at 7 days PERMETHRIN 04992191850 No Longer Active Adolfo OSORIO Active AMOXICILLIN 500 MG CAPS 2 po BID x 10 days AMOX ICILLIN 88899067728 No Longer Active Yoli Mercado MD PhD Active ALPRAZOLAM 0.5 MG TAB 1 tab by mouth tid ALPRAZOL AM 48347307014 Active Nitza Mullins RPT,RMA Active INSUPEN ULTRAFIN 31G X 6 MM MISC USE DIRECTED 03/04 INSULIN PEN NEEDLE 05924002027 No Longer Active Bertrand Patel DO Active TRANSDERM-SCOP 1.5 MG PT72 1 patch applied behind ear q 3 day 20 04/13/28 SCOPOLAMINE BASE 85202540016 No Longer Active Bertrand Patel DO Active MACRODANTIN 100 MG CAPS one p.o. b.i.d. x2 weeks 03/04 NITROFURANTOIN MACROCRYSTAL 63346665254 No Longer Active Bertrand Patel DO Active MACRODANTIN 100 MG CAPS one p.o. b.i.d. x2 weeks 03/04 MACRODANTIN 100 MG CAPS 9751902 NITROFURANTOIN MACROCRYSTAL Inactive TRANSDERM-SCOP 1.5 MG PT72 [...] at 7 days PERMETHRIN 5 % CREA 336150 PERMETHRIN Inactive WELLBUTRIN 75 MG TABS 2 times daily WELLBUTRIN 75 MG TABS BUPROPION HCL Inactive CYMBALTA 30 MG CPEP 1 cap by mouth daily CYMBALTA 30 MG CPEP 304452 DULOXETINE HCL Inactive AZITHROMYCIN 500 MG SOLR 1 po q day ALTA THROMYCIN 500 MG SOLR 64796345786 AZITHROMYCIN Inactive CINNAMON ALPHA LIPOIC AC CMPLX CAPS by mouth twice a d ay in AM by mouth twice a day in PM CINNAMON ALPHA LIPOIC AC CMPLX CAPS ALPHA LIPOIC [id number] CAPS Inactive MICARDIS HCT 80-12.5 MG TABS 1 qd MICARDI S HCT 80-12.5 MG TABS 828642 TELMISARTAN-HCTZ Inactive PRAVASTATIN SODIUM 20 MG TABS 1 tablet by mouth daily at bedtime PRAVASTATIN SODIUM 20 MG TABS 001789 PRAVASTATIN SODIUM Inactive FUROSEMIDE 20 MG TABS 1 pill by mouth daily if needed for edema FUROSEMIDE 20 MG TABS 559013 FUROSEMIDE Inactive METFORMIN HCL 500 MG TABS 1 bid METFORMIN HCL 500 MG TABS 720689 METFORMIN HCL Inactive B-12 1000 MCG CAPS 1 tab daily B-12 1000 MCG CAP S CYANOCOBALAMIN Inactive VITAMIN E 200 UNIT CAPS 1 cap po qd VITAMIN E 2 00 UNIT CAPS 4706555 VITAMIN E Inactive [facility] MELATONIN 5-10 MG CR-TABS Take one by mouth daily at bedtime [facility] MELATONIN 5-10 MG CR-TABS MELATONIN-PYRIDOXI NE Inactive LORTAB 7.5-500 MG TABS take one po Q6 hours LORTAB 7.5-500 MG TABS HYDROCODONE-ACETAMINOPHEN Inactive AZITHROMYCIN 250 MG ORAL TABS Take 2 tabs po today then 1 ta b po daily AZITHROMYCIN 250 MG ORAL TABS 0107537 AZITHROMYCI N Inactive SYMBICORT 160-4.5 MCG/ACT AERO 2 puffs BID SYMBICORT 160- 4.5 MCG/ACT AERO BUDESONIDE-FORMOTEROL FUMARATE Inactive ALBUTEROL SULFATE 0.083 % NEBU SOLN one vial per nebul izer every 4-6 hours as needed ALBUTEROL SULFATE 0.083 % NEBU SOLN 71172 8 ALBUTEROL SULFATE Inactive NEBULIZER MISC use as directed NEBULIZER MISC NEBULIZERS Inactive TESSALON PERLES 100 MG CAP 1 tablet by mouth 3 times daily 07/07 TESSALON PERLES 100 MG CAP 957091 BENZONATATE Inact jairo CYCLOBENZAPRINE HCL 10 MG TABS Take 1 tab TID PRN for muscle pain CYCLOBENZAPRINE HCL 10 MG TABS 176320 CYCLOBENZAPRINE HCL Inactive AUGMENTIN 875-125 MG TAB 1 po BID x 10 days AUGMENTIN 875- 125 MG TAB 812670 AMOXICILLIN-POT CLAVULANATE Inactive BACTROBAN 2 % CREAM Apply to affected area BID for up to 10 days BACTROBAN 2 % CREAM 683121 MUPIROCIN CALCIUM Inactive AMOXICILLIN 500 MG CAPS 2 po BID x 10 days AMOXICILLIN 500 MG CAPS 390994 AMOXICILLIN Inactive AZITHROMYCIN 250 MG TABS take 2 po today then take 1 po days 2-5 AZITHROMYCIN 250 MG TABS 7108326 AZITHROMYCIN Inactiv e LEVAQUIN 500 MG TABS 1 pill by mouth daily LEVAQUIN 500 MG TABS 357537 LEVOFLOXACIN Inactive AUGMENTIN 875-125 MG TABS 1 pill by mouth twice daily AUGMENTIN 875-125 MG TABS 135616 AMOXICILLIN-POT CLAVULANATE Inacti ve AUGMENTIN 875-125 MG TAB 1 po BID x 10 days AUGMENTIN 875- 125 MG TAB 878960 AMOXICILLIN-POT CLAVULANATE Inactive PREDNISONE 20 MG TAB take 3 tabs daily for 3 days , 2 tabs daily for 3 days, 1 tab daily for 3 days, 1/2 tab daily for 3 days PREDNISONE 20 MG TAB 608850 PREDNISONE Inactive CIPRO 500 MG TAB 1 tablet by mouth twice daily CIPRO 500 MG TAB 152785 CIPROFLOXACIN HCL Inactive Vital Signs Date Name [...] 1.16 m[iU]/mL 0.36-3.74 sodium, serum 142 mmol/L 388-709 6130/07/22 carbon dioxide, venous blood 33.1 mmol/L 21.0-32 [...] 5.8 % 4.3-6.0 cholesterol, serum 200 mg/dL 960-848 7271/07/22 triglyceride, serum, fasting 56 mg/dL 30-200 HDL [...] 0-19 Encounters Code Encounter Date Provider Facility CPT-00613 Level 4 Est. Patient 12:31:54 CDT Bertrand marquez [facility] CPT-15055 Level 3 Est. Patient 11:27:00 [employer] DIRECT[employer] Ike Deluna MD [facility] CPT-95897 Level 3 Est. Patient 08:50:57 [employer] DIRECTOR Dangelo [facility] CPT-43181 Level 3 Est. Patient 10:04:13 CDT Bertrand marquez [facility] CPT-32909 Level 4 Est. Patient 16:02:10 [employer] DIRECTOR Dangelo [employer] DIRECT[employer] [facility] CPT-40698 Level 3 Est. Patient 13:04:54 [employer] DIRECTOR Dangelo [facility] CPT-27478 Level 3 Est. Patient 12:56:37 CDT Bertrand marquez [facility] CPT-40001 Level 3 Est. Patient 19:12:03 CDT Yoli tolbert MD [facility] CPT-93349 Level 3 Est. Patient 14:36:01 CDT Yoli tolbert MD [facility] CPT-65360 Level 2 Est. Patient 08:00:22 CDT Jcarlos dc MD [facility] CPT-41280 Level 3 Est. Patient 19:06:55 CDT Bertrand marquez [facility] CPT-30474 Level 3 Est. Patient 10:08:23 [employer] DIRECTOR Bertrand marquez [facility] CPT-81330 Level 3 Est. Patient 16:37:54 [employer] DIRECTOR Bertrand marquez [facility] CPT-23321 Level 3 Est. Patient 11:31:59 [employer] DIRECTOR Bertrand marquez [facility] CPT-44246 Level 3 Est. Patient 10:20:08 CDT Adolfo villasenor [facility] CPT-49340 Level 3 Est. Patient 13:45:20 CDT Sanket buckley [facility] CPT-76079 Level 3 Est. Patient 12:51:06 CDT Adolfo villasenor [facility] CPT-63587 Level 3 Est. Patient 11:22:51 [employer] DIRECTOR Yoli tolbert MD [facility] CPT-32493 Level 3 Est. Patient 13:33:19 CDT Bertrand marquez [facility] Procedures Code Procedure Name Date Entry Date Standard Desc ription CPT-78571 Wound Culture - LAB USE ONLY 15:45:25 CDT 2 CPT-22270 Venipuncture Draw Fee 10:23:01 CDT CPT-J0696 Rocephin 1000 mg (Ceftriaxone) 16:20:30 [employer] DIRECT[employer] CPT-07835 Abx/Therapy Injection 16:20:29 [employer] CPT-J0696 Rocephin 1gm Inj Solr 15:51:59 [employer] CPT-05876 Chest 2V Frontal and Lat 15:20:28 [employer] 07/22 CPT-41066 Breathing Tx 14:51:55 [employer] CPT-51477 Breathing Tx 09:57:16 [employer] CPT-27644 Knee comp 4/> V 11:58:06 [employer]
--- OUTSIDE RECORDS SUMMARY | 2019-11-13 10:29 | XMS REPORT | Clinical Summary ---
Author Author Admin, Enrique Adamson Organization [facility] Address Unknown Phone Unavailable Allergies, Adverse [...] HOURS BY MOUTH NEEDED FOR PAIN HYDROCODONE-ACETAMINOPHEN [id number] Acti ve Bertrand Patel DO Active LORTAB 7.5-500 MG TABS take one po Q6 hours HYDROCODONE-ACETAMINOPHEN No Longer Active Nirmal Robbins RN Active [facility] MELATONIN 5-10 MG CR-TABS Take one by mouth daily at bedtime MELATONIN-PYRIDOXINE 15723316732 No Longer Active Bertrand Patel DO Active VITAMIN E 200 UNIT CAPS 1 cap po qd VITAMIN E 316 11746737 No Longer Active Bertrand Patel DO Active B-12 1000 MCG CAPS 1 tab daily CYANOCOBALAMIN 31 447244303 No Longer Active Bertrand Patel DO Active METFORMIN HCL 500 MG TABS 1 bid METFORMIN HCL 86319701601 No Longer Active Bertrand Patel DO Active FUROSEMIDE 20 MG TABS 1 pill by mouth daily if needed for edema FUROSEMIDE 26689099508 No Longer Active Bertrand Patel DO Act jairo PRAVASTATIN SODIUM 20 MG TABS 1 tablet by mouth daily at bedtime PRAVASTATIN SODIUM 34301520376 No Longer Active Bertrand Patel DO Active AUGMENTIN 875-125 MG TABS 1 pill by mouth twice daily AMOXICILLIN-POT CLAVULANATE 88695410166 No Longer Active Yoli Mercado MD PhD Active LEVAQUIN 500 MG TABS 1 pill by mouth daily LEVO FLOXACIN 93305459292 No Longer Active Yoli Mercado MD PhD Active CYCLOBENZAPRINE HCL 10 MG TABS Take 1 tab TID PRN for muscle pain CYCLOBENZAPRINE HCL 33196085942 Active Brittni Fernándezum QUALITY CLOTH TESTER Active AMLODIPINE BESYLATE 5 MG TABS 1 tablet by mouth daily for bl ood pressure AMLODIPINE BESYLATE 83737538863 Active Nitza Dorman PT,RMA Active MICARDIS 80 MG TABS 1 tablet daily for blood pressure TELMISARTAN 53035515828 Active Bertrand Patel DO Active MICARDIS HCT 80-12.5 MG TABS 1 qd TELMISARTA N-HCTZ 55670360538 No Longer Active Bertrand Patel DO Active CINNAMON ALPHA LIPOIC AC CMPLX CAPS by mouth twice a d ay in AM by mouth twice a day in PM ALPHA LIPOIC [id number] CAPS 320114 42381 No Longer Active Bertrand Patel DO Active AZITHROMYCIN 500 MG SOLR 1 po q day AZITHROMYCI N 58259454130 No Longer Active Bertrand Patel DO Active CYMBALTA 30 MG CPEP 1 cap by mouth daily DULOXE CATHI HCL 40369247228 No Longer Active Bertrand Patel DO Active CYMBALTA 60 MG CPEP 1 cap by mouth daily DULOXE CATHI HCL 66412899578 Active Bertrand Patel DO Active WELLBUTRIN 75 MG TABS 2 times daily BUPROPION H CL 97519266128 No Longer Active Bertrand Patel DO Active PROAIR HFA 108 (90 BASE) MCG/ACT AERS take one to two puffs po Q4-6 hour prn cough and shortness of breath ALBUTEROL SULFATE 9080881039 1 Active Adolfo OSORIO Active AZITHROMYCIN 250 MG TABS take 2 po today then take 1 po days 2-5 AZITHROMYCIN 11440479596 No Longer Active Adolfo OSORIO Active PERMETHRIN 5 % CREA apply neck to toes tonight a nd then rinse off in morning. repeat at 7 days PERMETHRIN 52478065642 No Longer Active Adolfo OSORIO Active AMOXICILLIN 500 MG CAPS 2 po BID x 10 days AMOX ICILLIN 60943109396 No Longer Active Yoli Mercado MD PhD Active ALPRAZOLAM 0.5 MG TAB 1 tab by mouth tid ALPRAZOL AM 39137794471 Active Bertrand Patel DO Active INSUPEN ULTRAFIN 31G X 6 MM MISC USE DIRECTED 03/04 INSULIN PEN NEEDLE 19746873460 No Longer Active Bertrand Patel DO Active TRANSDERM-SCOP 1.5 MG PT72 1 patch applied behind ear q 3 day 20 04/13/28 SCOPOLAMINE BASE 38465258048 No Longer Active Bertrand Patel DO Active MACRODANTIN 100 MG CAPS one p.o. b.i.d. x2 weeks 03/04 NITROFURANTOIN MACROCRYSTAL 01374546839 No Longer Active Bertrand Patel DO Active MACRODANTIN 100 MG CAPS one p.o. b.i.d. x2 weeks 03/04 MACRODANTIN 100 MG CAPS 3729511 NITROFURANTOIN MACROCRYSTAL Inactive TRANSDERM-SCOP 1.5 MG PT72 [...] at 7 days PERMETHRIN 5 % CREA 202315 PERMETHRIN Inactive WELLBUTRIN 75 MG TABS 2 times daily WELLBUTRIN 75 MG TABS 793557 BUPROPION HCL Inactive CYMBALTA 30 MG CPEP 1 cap by mouth daily CYMBALTA 30 MG CPEP 704405 DULOXETINE HCL Inactive AZITHROMYCIN 500 MG SOLR 1 po q day ALTA THROMYCIN 500 MG SOLR 993045 AZITHROMYCIN Inactive CINNAMON ALPHA LIPOIC AC CMPLX CAPS by mouth twice a d ay in AM by mouth twice a day in PM CINNAMON ALPHA LIPOIC AC CMPLX CAPS ALPHA LIPOIC XOCI-JE-HFYSHWPT CAPS Inactive MICARDIS HCT 80-12.5 MG TABS 1 qd MICARDI S HCT 80-12.5 MG TABS 069664 TELMISARTAN-HCTZ Inactive PRAVASTATIN SODIUM 20 MG TABS 1 tablet by mouth daily at bedtime PRAVASTATIN SODIUM 20 MG TABS 756186 PRAVASTATIN SODIUM Inactive FUROSEMIDE 20 MG TABS 1 pill by mouth daily if needed for edema FUROSEMIDE 20 MG TABS 534947 FUROSEMIDE Inactive METFORMIN HCL 500 MG TABS 1 bid METFORMIN HCL 500 MG TABS 983068 METFORMIN HCL Inactive B-12 1000 MCG CAPS 1 tab daily B-12 1000 MCG CAP S CYANOCOBALAMIN Inactive VITAMIN E 200 UNIT CAPS 1 cap po qd VITAMIN E 2 00 UNIT CAPS 3118239 VITAMIN E Inactive [facility] MELATONIN 5-10 MG CR-TABS Take one by mouth daily at bedtime [facility] MELATONIN 5-10 MG CR-TABS MELATONIN-PYRIDOXI NE Inactive LORTAB 7.5-500 MG TABS take one po Q6 hours LORTAB 7.5-500 MG TABS HYDROCODONE-ACETAMINOPHEN Inactive AMOXICILLIN 500 MG CAPS 2 po BID x 10 days AMOXICILLIN 500 MG CAPS 635246 AMOXICILLIN Inactive AZITHROMYCIN 250 MG TABS take 2 po today then take 1 po days 2-5 AZITHROMYCIN 250 MG TABS 6766433 AZITHROMYCIN Inactiv e LEVAQUIN 500 MG TABS 1 pill by mouth daily LEVAQUIN 500 MG TABS 687323 LEVOFLOXACIN Inactive AUGMENTIN 875-125 MG TABS 1 pill by mouth twice daily AUGMENTIN 875-125 MG TABS 855232 AMOXICILLIN-POT CLAVULANATE Inacti ve Vital Signs Date [...] CBC - Chemistry sodium, serum 139 mmol/L 276-439 7339/10/31 potassium, serum 4.5 mmol/L 3.5-5.2 chloride, serum [...] mg/dL Encounters Code Encounter Date Provider Facility CPT-58222 Level 3 Est. Patient 12:56:37 CDT Bertrand marquez [facility] CPT-20636 Level 3 Est. Patient 19:12:03 CDT Yoli tolbert MD [facility]-74031 Level 3 Est. Patient 14:36:01 CDT Yoli tolbert MD [facility] CPT-89176 Level 2 Est. Patient 08:00:22 CDT Jcarlos dc MD [facility]-32313 Level 3 Est. Patient 19:06:55 CDT Bertrand marquez [facility] CPT-41909 Level 3 Est. Patient 10:08:23 AIR BREAKER OPERATOR Bertrand marquez [facility] CPT-21471 Level 3 Est. Patient 16:37:54 AIR BREAKER OPERATOR Bertrand marquez [facility] CPT-68576 Level 3 Est. Patient 11:31:59 AIR BREAKER OPERATOR Bertrand marquez [facility] CPT-04125 Level 3 Est. Patient 10:20:08 CDT Adolfo villasenor [facility] CPT-00596 Level 3 Est. Patient 13:45:20 CDT Sanket buckley [facility] CPT-31696 Level 3 Est. Patient 12:51:06 CDT Adolfo villasenor [facility] CPT-18040 Level 3 Est. Patient 11:22:51 AIR BREAKER OPERATOR Yoli tolbert MD [facility]-24628 Level 3 Est. Patient 13:33:19 CDT Bertrand marquez [facility] Procedures Code Procedure Name Date Entry Date Standard Desc ription CPT-20860 Knee comp 4/> V 11:58:06 AIR BREAKER OPERATOR
--- OUTSIDE RECORDS SUMMARY | 2019-11-13 10:29 | XMS REPORT | Clinical Summary ---
Author Author Admin, Enrique Adamson Organization [employer] Address Unknown Phone Unavailable Allergies, Adverse [...] er malaise and fatigue Headache 784.0 Active Betrrand Patel DO He adache Cough 786.2 Active Silvia Arnold APRN Cough SINUSITIS, ACUTE 461.9 Active Silvia PARISI synchro assembler sinusitis, unspecified Fatigue 780.79 Active Silvia Arnold [...] to 10 days 20 18/03/27 MUPIROCIN CALCIUM 42632188732 Active Silvia Arnold APRN Act jairo AUGMENTIN 875-125 MG TAB 1 po BID x 10 days AMOXICILLIN- POT CLAVULANATE 43218600831 Active Silvia Arnold APRN Activ e MODAFINIL 200 MG ORAL TABS Take 1/2 tab po in the am and 1/2 tab po at noon MODAFINIL 25642753745 Active Silvia Arnold APRN Active CYCLOBENZAPRINE HCL 10 MG TABS Take 1 tab TID PRN for muscle pain CYCLOBENZAPRINE HCL 98150604856 No Longer Active Bertrand Patel DO Ac tive TESSALON PERLES 100 MG CAP 1 tablet by mouth 3 times daily 07/07 BENZONATATE 65009441927 No Longer Active Bertrand Patel DO Ac tive NEBULIZER MISC use as directed NEBULIZERS 069333 49431 No Longer Active Bertrand Patel DO Active ALBUTEROL SULFATE 0.083 % NEBU SOLN one vial per nebul izer every 4-6 hours as needed ALBUTEROL SULFATE 78063980206 No Longer Active Bertrand Patel DO Active SYMBICORT 160-4.5 MCG/ACT AERO 2 puffs BID BUDESONIDE- FORMOTEROL FUMARATE 49064049182 No Longer Active Bertrand Patel DO Ac tive PREDNISONE 20 MG TAB take 3 tabs daily for 3 days , 2 tabs daily for 3 days, 1 tab daily for 3 days, 1/2 tab daily for 3 days P REDNISONE 53372142634 No Longer Active Silvia Arnold APRN Active AZITHROMYCIN 250 MG ORAL TABS Take 2 tabs po today then 1 ta b po daily AZITHROMYCIN 18062171755 No Longer Active Silvia gavin APRN Active AUGMENTIN 875-125 MG TAB 1 po BID x 10 days AMOXICILLIN- POT CLAVULANATE 17262151422 No Longer Active Adriana Bender LPN Active CHEWABLE CALCIUM 500-200-40 MG-UNT-MCG ORAL CHEW 1 chew tab bid 201 11/03/03 CALCIUM-VITAMIN D-VITAMIN K 45642397955 Active Silvia Arnold APRN Active EQ COMPLETE MULTIVIT ADULT 50+ ORAL TABS 1 tab po bid MULTIPLE VITAMINS-MINERALS 07783474597 Active Silvia Arnold APRN Act jairo HYDROCODONE-ACETAMINOPHEN 7.5-325 MG TABS TAKE ONE TAB EVERY 6 HOURS BY MOUTH NEEDED FOR PAIN HYDROCODONE-ACETAMINOPHEN 84032309400 Acti raheel العلي Active LORTAB 7.5-500 MG TABS take one po Q6 hours HYDROCODONE-ACETAMINOPHEN No Longer Active Nirmal Robbins RN Active [facility] MELATONIN 5-10 MG CR-TABS Take one by mouth daily at bedtime MELATONIN-PYRIDOXINE 96547337134 No Longer Active Bertrand Patel DO Active VITAMIN E 200 UNIT CAPS 1 cap po qd VITAMIN E 316 57988194 No Longer Active Bertrand Patel DO Active B-12 1000 MCG CAPS 1 tab daily CYANOCOBALAMIN 31 994941551 No Longer Active Bertrand Patel DO Active METFORMIN HCL 500 MG TABS 1 bid METFORMIN HCL 30788143970 No Longer Active Bertrand Patel DO Active FUROSEMIDE 20 MG TABS 1 pill by mouth daily if needed for edema FUROSEMIDE 34541854496 No Longer Active Bertrand Patel DO Act jairo PRAVASTATIN SODIUM 20 MG TABS 1 tablet by mouth daily at bedtime PRAVASTATIN SODIUM 06888152211 No Longer Active Bertrand Patel DO Active AUGMENTIN 875-125 MG TABS 1 pill by mouth twice daily AMOXICILLIN-POT CLAVULANATE 34840703234 No Longer Active Yoli Mercado MD PhD Active LEVAQUIN 500 MG TABS 1 pill by mouth daily LEVO FLOXACIN 38054571669 No Longer Active Yoli Mercado MD PhD Active AMLODIPINE BESYLATE 5 MG TABS 1 tablet by mouth daily for bl ood pressure AMLODIPINE BESYLATE 48970320646 Active Keysha Jones MA Active MICARDIS 80 MG TABS 1 tablet daily for blood pressure TELMISARTAN 25444937453 Active Keysha Jones MA Active MICARDIS HCT 80-12.5 MG TABS 1 qd TELMISARTA N-HCTZ 74504783287 No Longer Active Bertrand Patel DO Active CINNAMON ALPHA LIPOIC AC CMPLX CAPS by mouth twice a d ay in AM by mouth twice a day in PM ALPHA LIPOIC [id number] CAPS 549558 76097 No Longer Active Bertrand Patel DO Active AZITHROMYCIN 500 MG SOLR 1 po q day AZITHROMYCI N 72539563312 No Longer Active Bertrand Patel DO Active CYMBALTA 30 MG CPEP 1 cap by mouth daily DULOXE CATHI HCL 20762145537 No Longer Active Bertrand Patel DO Active CYMBALTA 60 MG CPEP 1 cap by mouth daily DULOXE CATHI HCL 42250323277 Active Keysha Jones MA Active WELLBUTRIN 75 MG TABS 2 times daily BUPROPION H CL 05267902194 No Longer Active Bertrand Patel DO Active PROAIR HFA 108 (90 BASE) MCG/ACT AERS take one to two puffs po Q4-6 hour prn cough and shortness of breath ALBUTEROL SULFATE 6529907447 2 Active Silvia Arnold BEVERAGE SERVER Active AZITHROMYCIN 250 MG TABS take 2 po today then take 1 po days 2-5 AZITHROMYCIN 82942589989 No Longer Active Adolfo OSORIO Active PERMETHRIN 5 % CREA apply neck to toes tonight a nd then rinse off in morning. repeat at 7 days PERMETHRIN 46210160286 No Longer Active Adolfo OSORIO Active AMOXICILLIN 500 MG CAPS 2 po BID x 10 days AMOX ICILLIN 78132015409 No Longer Active Yoli Mercado MD PhD Active ALPRAZOLAM 0.5 MG TAB 1 tab by mouth tid ALPRAZOL AM 21800126450 Active Nitza Mullins RPT,RMA Active INSUPEN ULTRAFIN 31G X 6 MM MISC USE DIRECTED 03/04 INSULIN PEN NEEDLE 62806016617 No Longer Active Bertrand Patel DO Active TRANSDERM-SCOP 1.5 MG PT72 1 patch applied behind ear q 3 day 20 04/13/28 SCOPOLAMINE BASE 09360298518 No Longer Active Bertrand Patel DO Active MACRODANTIN 100 MG CAPS one p.o. b.i.d. x2 weeks 03/04 NITROFURANTOIN MACROCRYSTAL 61627701175 No Longer Active Bertrand Patel DO Active MACRODANTIN 100 MG CAPS one p.o. b.i.d. x2 weeks 03/04 MACRODANTIN 100 MG CAPS 8328450 NITROFURANTOIN MACROCRYSTAL Inactive TRANSDERM-SCOP 1.5 MG PT72 [...] at 7 days PERMETHRIN 5 % CREA 338973 PERMETHRIN Inactive WELLBUTRIN 75 MG TABS 2 times daily WELLBUTRIN 75 MG TABS BUPROPION HCL Inactive CYMBALTA 30 MG CPEP 1 cap by mouth daily CYMBALTA 30 MG CPEP 553422 DULOXETINE HCL Inactive AZITHROMYCIN 500 MG SOLR 1 po q day ALTA THROMYCIN 500 MG SOLR 20376729214 AZITHROMYCIN Inactive CINNAMON ALPHA LIPOIC AC CMPLX CAPS by mouth twice a d ay in AM by mouth twice a day in PM CINNAMON ALPHA LIPOIC AC CMPLX CAPS ALPHA LIPOIC UFIQ-SL-ROXLDODN CAPS Inactive MICARDIS HCT 80-12.5 MG TABS 1 qd MICARDI S HCT 80-12.5 MG TABS 721867 TELMISARTAN-HCTZ Inactive PRAVASTATIN SODIUM 20 MG TABS 1 tablet by mouth daily at bedtime PRAVASTATIN SODIUM 20 MG TABS 895200 PRAVASTATIN SODIUM Inactive FUROSEMIDE 20 MG TABS 1 pill by mouth daily if needed for edema FUROSEMIDE 20 MG TABS 360484 FUROSEMIDE Inactive METFORMIN HCL 500 MG TABS 1 bid METFORMIN HCL 500 MG TABS 745621 METFORMIN HCL Inactive B-12 1000 MCG CAPS 1 tab daily B-12 1000 MCG CAP S CYANOCOBALAMIN Inactive VITAMIN E 200 UNIT CAPS 1 cap po qd VITAMIN E 2 00 UNIT CAPS 2970770 VITAMIN E Inactive [facility] MELATONIN 5-10 MG CR-TABS Take one by mouth daily at bedtime [facility] MELATONIN 5-10 MG CR-TABS MELATONIN-PYRIDOXI NE Inactive LORTAB 7.5-500 MG TABS take one po Q6 hours LORTAB 7.5-500 MG TABS HYDROCODONE-ACETAMINOPHEN Inactive AZITHROMYCIN 250 MG ORAL TABS Take 2 tabs po today then 1 ta b po daily AZITHROMYCIN 250 MG ORAL TABS 6100094 AZITHROMYCI N Inactive SYMBICORT 160-4.5 MCG/ACT AERO 2 puffs BID SYMBICORT 160- 4.5 MCG/ACT AERO BUDESONIDE-FORMOTEROL FUMARATE Inactive ALBUTEROL SULFATE 0.083 % NEBU SOLN one vial per nebul izer every 4-6 hours as needed ALBUTEROL SULFATE 0.083 % NEBU SOLN 67753 8 ALBUTEROL SULFATE Inactive NEBULIZER MISC use as directed NEBULIZER MISC NEBULIZERS Inactive TESSALON PERLES 100 MG CAP 1 tablet by mouth 3 times daily 07/07 TESSALON PERLES 100 MG CAP 790083 BENZONATATE Inact jairo CYCLOBENZAPRINE HCL 10 MG TABS Take 1 tab TID PRN for muscle pain CYCLOBENZAPRINE HCL 10 MG TABS 190001 CYCLOBENZAPRINE HCL Inactive AMOXICILLIN 500 MG CAPS 2 po BID x 10 days AMOXICILLIN 500 MG CAPS 060792 AMOXICILLIN Inactive AZITHROMYCIN 250 MG TABS take 2 po today then take 1 po days 2-5 AZITHROMYCIN 250 MG TABS 9086069 AZITHROMYCIN Inactiv e LEVAQUIN 500 MG TABS 1 pill by mouth daily LEVAQUIN 500 MG TABS 889381 LEVOFLOXACIN Inactive AUGMENTIN 875-125 MG TABS 1 pill by mouth twice daily AUGMENTIN 875-125 MG TABS 347960 AMOXICILLIN-POT CLAVULANATE Inacti ve AUGMENTIN 875-125 MG TAB 1 po BID x 10 days AUGMENTIN 875- 125 MG TAB 523314 AMOXICILLIN-POT CLAVULANATE Inactive PREDNISONE 20 MG TAB take 3 tabs daily for 3 days , 2 tabs daily for 3 days, 1 tab daily for 3 days, 1/2 tab daily for 3 days PREDNISONE 20 MG TAB 525215 PREDNISONE Inactive Vital Signs Date Name Value [...] Chemistry LDL cholesterol, serum 109 mg/dL 0-130 albumin/creatinine ratio, urine < 30 mg/g mg/g{creat} 0-2 9 TSH 1.16 m[iU]/mL 0.36-3.74 sodium, serum 142 mmol/L 479-328 4946/07/22 carbon dioxide, venous blood 33.1 mmol/L 21.0-32 .0 potassium, serum 4.6 mmol/L 3.5-5.2 chloride, serum 105 mmol/L 98-107 blood glucose 96 mg/dL 65-110 urea nitrogen, blood 16 mg/dL 7-18 creatinine, serum 0.69 mg/dL 0.55-1.30 alanine aminotransferase (SGPT), serum 22 U/L 12-78 aspartate aminotransferase (SGOT), serum 18 U/L 15-37 calcium, serum 8.7 mg/dL 8.5-10.1 bilirubin, serum, total 0.40 mg/dL 0.00-1.00 HDL cholesterol, serum 80 mg/dL 32-96 triglyceride, serum, fasting 56 mg/dL 30-200 cholesterol, serum 200 mg/dL 106-005 3161/07/22 hemoglobin A1C, blood, as % of total hemoglobin 5.8 % 4.3-6.0 Lab Report: HGBA1C, Lipid Panel, [...] Negative;Positive Encounters Code Encounter Date Provider Facility CPT-83578 Level 3 Est. Patient 10:04:13 CDT Bertrand marquez [facility] CPT-75800 Level 4 Est. Patient 16:02:10 ACID PURIFICATION EQUIPMENT OPERATOR Dangelo BARAJAS [facility] CPT-96689 Level 3 Est. Patient 13:04:54 ACID PURIFICATION EQUIPMENT OPERATOR Dangelo BARAJAS [facility]-32852 Level 3 Est. Patient 12:56:37 CDT Bertrand marquez [facility] CPT-34204 Level 3 Est. Patient 19:12:03 CDT Yoli tolbert MD [facility]-08819 Level 3 Est. Patient 14:36:01 CDT Yoli tolbert MD [facility]-17034 Level 2 Est. Patient 08:00:22 CDT Jcarlos dc MD [facility]-37634 Level 3 Est. Patient 19:06:55 CDT Bertrand marquez [facility]-71243 Level 3 Est. Patient 10:08:23 ACID PURIFICATION EQUIPMENT OPERATOR Bertrand marquez [facility] CPT-94850 Level 3 Est. Patient 16:37:54 ACID PURIFICATION EQUIPMENT OPERATOR Bertrand marquez [facility] CPT-93935 Level 3 Est. Patient 11:31:59 ACID PURIFICATION EQUIPMENT OPERATOR Bertrand marquez [facility] CPT-31708 Level 3 Est. Patient 10:20:08 CDT Adolfo villasenor [facility]-00673 Level 3 Est. Patient 13:45:20 CDT Sanket buckley [facility] CPT-53251 Level 3 Est. Patient 12:51:06 CDT Adolfo villasenor [facility]-66741 Level 3 Est. Patient 11:22:51 ACID PURIFICATION EQUIPMENT OPERATOR Yoli tolbert MD [facility]-01871 Level 3 Est. Patient 13:33:19 CDT Bertrand marquez [facility] Procedures Code Procedure Name Date Entry Date Standard Desc ription CPT-85761 Wound Culture - LAB USE ONLY 15:45:25 CDT 2 CPT-58980 Venipuncture Draw Fee 10:23:01 CDT CPT-J0696 Rocephin 1000 mg (Ceftriaxone) 16:20:30 ACID PURIFICATION EQUIPMENT OPERATOR CPT-59429 Abx/Therapy Injection 16:20:29 ACID PURIFICATION EQUIPMENT OPERATOR CPT-J0696 Rocephin 1gm Inj Solr 15:51:59 ACID PURIFICATION EQUIPMENT OPERATOR CPT-38435 Chest 2V Frontal and Lat 15:20:28 ACID PURIFICATION EQUIPMENT OPERATOR 07/22 CPT-23262 Breathing Tx 14:51:55 ACID PURIFICATION EQUIPMENT OPERATOR CPT-67982 Breathing Tx 09:57:16 ACID PURIFICATION EQUIPMENT OPERATOR CPT-09629 Knee comp 4/> V 11:58:06 ACID PURIFICATION EQUIPMENT OPERATOR
--- OUTSIDE RECORDS SUMMARY | 2019-11-13 10:30 | XMS REPORT | Clinical Summary ---
Author Author Admin, Enrique Adamson Organization [employer] Address Unknown Phone Unavailable Allergies, Adverse Reactions, [...] Cough SINUSITIS, ACUTE 461.9 Active Silvia PARISI aerophysicist sinusitis, unspecified Fatigue 780.79 Active Silvia Arnold [...] BID x 10 days AMOXICILLIN- POT CLAVULANATE 50613523093 Active Adriana Bender LPN Ac tive TESSALON PERLES 100 MG CAP 1 tablet by mouth 3 times daily BENZONATATE 89143444105 Active Silvia Arnold APRN Active CHEWABLE CALCIUM 500-200-40 MG-UNT-MCG ORAL CHEW 1 chew tab bid 201 11/03/03 CALCIUM-VITAMIN D-VITAMIN K 73722567139 Active Silvia Arnold APRN Active EQ COMPLETE MULTIVIT ADULT 50+ ORAL TABS 1 tab po bid MULTIPLE VITAMINS-MINERALS 82715974663 Active Silvia Arnold APRN Act jairo HYDROCODONE-ACETAMINOPHEN 7.5-325 MG TABS TAKE ONE TAB EVERY 6 HOURS BY MOUTH NEEDED FOR PAIN HYDROCODONE-ACETAMINOPHEN 97481470018 Acti ve Bertrand Patel DO Active LORTAB 7.5-500 MG TABS take one po Q6 hours HYDROCODONE-ACETAMINOPHEN No Longer Active Nirmal Robbins RN Active [facility] MELATONIN 5-10 MG CR-TABS Take one by mouth daily at bedtime MELATONIN-PYRIDOXINE 29207418795 No Longer Active Bertrand Patel DO Active VITAMIN E 200 UNIT CAPS 1 cap po qd VITAMIN E 316 27118858 No Longer Active Bertrand Patel DO Active B-12 1000 MCG CAPS 1 tab daily CYANOCOBALAMIN 31 495516166 No Longer Active Bertrand Patel DO Active METFORMIN HCL 500 MG TABS 1 bid METFORMIN HCL 59767152552 No Longer Active Bertrand Patel DO Active FUROSEMIDE 20 MG TABS 1 pill by mouth daily if needed for edema FUROSEMIDE 41693056033 No Longer Active Bertrand Patel DO Act jairo PRAVASTATIN SODIUM 20 MG TABS 1 tablet by mouth daily at bedtime PRAVASTATIN SODIUM 61366879744 No Longer Active Bertrand Patel DO Active AUGMENTIN 875-125 MG TABS 1 pill by mouth twice daily AMOXICILLIN-POT CLAVULANATE 49878052620 No Longer Active Yoli Mercado MD PhD Active LEVAQUIN 500 MG TABS 1 pill by mouth daily LEVO FLOXACIN 12220523685 No Longer Active Yoli Mercado MD PhD Active CYCLOBENZAPRINE HCL 10 MG TABS Take 1 tab TID PRN for muscle pain CYCLOBENZAPRINE HCL 84929747289 Active Brittni Fernándezum TOP DISTRIBUTION EXECUTIVE Active AMLODIPINE BESYLATE 5 MG TABS 1 tablet by mouth daily for bl ood pressure AMLODIPINE BESYLATE 91285021174 Active Nitza Dorman PT,RMA Active MICARDIS 80 MG TABS 1 tablet daily for blood pressure TELMISARTAN 87957125016 Active Nitza Mullins RPT,RMA Active MICARDIS HCT 80-12.5 MG TABS 1 qd TELMISARTA N-HCTZ 01977162318 No Longer Active Bertrand Patel DO Active CINNAMON ALPHA LIPOIC AC CMPLX CAPS by mouth twice a d ay in AM by mouth twice a day in PM ALPHA LIPOIC [id number] CAPS 167737 85510 No Longer Active Bertrand Patel DO Active AZITHROMYCIN 500 MG SOLR 1 po q day AZITHROMYCI N 43401494342 No Longer Active Bertrand Patel DO Active CYMBALTA 30 MG CPEP 1 cap by mouth daily DULOXE CATHI HCL 08945381204 No Longer Active Bertrand Patel DO Active CYMBALTA 60 MG CPEP 1 cap by mouth daily DULOXE CATHI HCL 62040257825 Active Nitza Mullins RPT,RMA Active WELLBUTRIN 75 MG TABS 2 times daily BUPROPION H CL 68062047232 No Longer Active Bertrand Patel DO Active PROAIR HFA 108 (90 BASE) MCG/ACT AERS take one to two puffs po Q4-6 hour prn cough and shortness of breath ALBUTEROL SULFATE 5347254963 2 Active Silvia Arnold WASHATERIA ATTENDANT Active AZITHROMYCIN 250 MG TABS take 2 po today then take 1 po days 2-5 AZITHROMYCIN 54206637444 No Longer Active Adolfo OSORIO Active PERMETHRIN 5 % CREA apply neck to toes tonight a nd then rinse off in morning. repeat at 7 days PERMETHRIN 51229614588 No Longer Active Adolfo OSORIO Active AMOXICILLIN 500 MG CAPS 2 po BID x 10 days AMOX ICILLIN 63742133508 No Longer Active Yoli Mercado MD PhD Active ALPRAZOLAM 0.5 MG TAB 1 tab by mouth tid ALPRAZOL AM 26041236134 Active Bertrand Patel DO Active INSUPEN ULTRAFIN 31G X 6 MM MISC USE DIRECTED 03/04 INSULIN PEN NEEDLE 83822585522 No Longer Active Bertrand Patel DO Active TRANSDERM-SCOP 1.5 MG PT72 1 patch applied behind ear q 3 day 20 04/13/28 SCOPOLAMINE BASE 81079705279 No Longer Active Bertrand Patel DO Active MACRODANTIN 100 MG CAPS one p.o. b.i.d. x2 weeks 03/04 NITROFURANTOIN MACROCRYSTAL 60244647668 No Longer Active Bertrand Patel DO Active MACRODANTIN 100 MG CAPS one p.o. b.i.d. x2 weeks 03/04 MACRODANTIN 100 MG CAPS 4638262 NITROFURANTOIN MACROCRYSTAL Inactive TRANSDERM-SCOP 1.5 MG PT72 [...] at 7 days PERMETHRIN 5 % CREA 460316 PERMETHRIN Inactive WELLBUTRIN 75 MG TABS 2 times daily WELLBUTRIN 75 MG TABS 281344 BUPROPION HCL Inactive CYMBALTA 30 MG CPEP 1 cap by mouth daily CYMBALTA 30 MG CPEP 522649 DULOXETINE HCL Inactive AZITHROMYCIN 500 MG SOLR 1 po q day ALTA THROMYCIN 500 MG SOLR 77567720561 AZITHROMYCIN Inactive CINNAMON ALPHA LIPOIC AC CMPLX CAPS by mouth twice a d ay in AM by mouth twice a day in PM CINNAMON ALPHA LIPOIC AC CMPLX CAPS ALPHA LIPOIC [id number] CAPS Inactive MICARDIS HCT 80-12.5 MG TABS 1 qd MICARDI S HCT 80-12.5 MG TABS 887017 TELMISARTAN-HCTZ Inactive PRAVASTATIN SODIUM 20 MG TABS 1 tablet by mouth daily at bedtime PRAVASTATIN SODIUM 20 MG TABS 431805 PRAVASTATIN SODIUM Inactive FUROSEMIDE 20 MG TABS 1 pill by mouth daily if needed for edema FUROSEMIDE 20 MG TABS 317631 FUROSEMIDE Inactive METFORMIN HCL 500 MG TABS 1 bid METFORMIN HCL 500 MG TABS 122586 METFORMIN HCL Inactive B-12 1000 MCG CAPS 1 tab daily B-12 1000 MCG CAP S CYANOCOBALAMIN Inactive VITAMIN E 200 UNIT CAPS 1 cap po qd VITAMIN E 2 00 UNIT CAPS 3752484 VITAMIN E Inactive [facility] MELATONIN 5-10 MG CR-TABS Take one by mouth daily at bedtime [facility] MELATONIN 5-10 MG CR-TABS MELATONIN-PYRIDOXI NE Inactive LORTAB 7.5-500 MG TABS take one po Q6 hours LORTAB 7.5-500 MG TABS HYDROCODONE-ACETAMINOPHEN Inactive AMOXICILLIN 500 MG CAPS 2 po BID x 10 days AMOXICILLIN 500 MG CAPS 307711 AMOXICILLIN Inactive AZITHROMYCIN 250 MG TABS take 2 po today then take 1 po days 2-5 AZITHROMYCIN 250 MG TABS 1163008 AZITHROMYCIN Inactiv e LEVAQUIN 500 MG TABS 1 pill by mouth daily LEVAQUIN 500 MG TABS 505612 LEVOFLOXACIN Inactive AUGMENTIN 875-125 MG TABS 1 pill by mouth twice daily AUGMENTIN 875-125 MG TABS 342446 AMOXICILLIN-POT CLAVULANATE Inacti ve Vital Signs Date [...] Negative;Positive Encounters Code Encounter Date Provider Facility CPT-76885 Level 3 Est. Patient 13:04:54 MALIHA Pierson APRN [facility] CPT-07762 Level 3 Est. Patient 12:56:37 CDT Bertrand marquez [facility] CPT-69967 Level 3 Est. Patient 19:12:03 CDT Yoli tolbert MD [facility]-74674 Level 3 Est. Patient 14:36:01 CDT Yoli tolbert MD [facility] CPT-44267 Level 2 Est. Patient 08:00:22 CDT Jcarlos dc MD [facility]-25139 Level 3 Est. Patient 19:06:55 CDT Bertrand marquez [facility] CPT-32845 Level 3 Est. Patient 10:08:23 CIRCULATING NURSE Bertrand marquez [facility] CPT-36618 Level 3 Est. Patient 16:37:54 CIRCULATING NURSE Bertrand marquez [facility] CPT-12102 Level 3 Est. Patient 11:31:59 CIRCULATING NURSE Bertrand marquez [facility] CPT-12083 Level 3 Est. Patient 10:20:08 CDT Adolfo villasenor [facility] CPT-81289 Level 3 Est. Patient 13:45:20 CDT Sanket buckley [facility] CPT-15142 Level 3 Est. Patient 12:51:06 CDT Adolfo villasenor [facility] CPT-34346 Level 3 Est. Patient 11:22:51 CIRCULATING NURSE Yoli tolbert MD PhD [facility] CPT-24530 Level 3 Est. Patient 13:33:19 CDT Bertrand marquez [facility] Procedures Code Procedure Name Date Entry Date Standard Desc ription CPT-25978 Breathing Tx 09:57:16 CIRCULATING NURSE CPT-23137 Knee comp 4/> V 11:58:06 CIRCULATING NURSE
--- OUTSIDE RECORDS SUMMARY | 2019-11-13 10:30 | XMS REPORT | Clinical Summary ---
Author Author Admin, Enrique Adamson Organization [employer] Address Unknown Phone Unavailable Allergies, Adverse Reactions, Alerts Allergy Name Reaction Description Start Date Severity Status Pr ovider BYETTA 10 MCG PEN Critical Active Lilia Clemons RN METAMUCIL Critical Active Berrtand Patel DO BACTRIM Critical Active Bertrand Patel [...] MD PhD Scabies FH DIABETES V18.0 Inactive Yoil Mercado MD PhD Family history of diabetes [...] 09/09/28 EDEMA LEG ICD-782.3 Inactive Adele Feldman RENTAL COUNTER CLERK 201 01/01/02 SHORTNESS OF BREATH ICD-786.05 Inactive Yoli Mercado MD PhD RIB PAIN, RIGHT SIDED ICD-786.50 Inactive Yoli Mercado MD PhD KNEE PAIN, RIGHT ICD-719.46 Inactive Adele Esqueda ghn RENTAL COUNTER CLERK Knee pain, left ICD-719.46 Inactive Adele Holden hn RENTAL COUNTER CLERK Pharyngitis-Acute ICD-462 Inactive Bertrand Redmond DO Polyuria ICD-788.42 Inactive Yoli Mercado MD P hD Cellulitis, leg, right ICD-682.6 Inactive Yuki Deluna MD Foreign body, ear ICD-931 Inactive Yoli salazar MD PhD Fatigue ICD-780.79 Inactive Ike Deluna MD 201 12/01/06 Headache ICD-784.0 Inactive Adele Feldman RENTAL COUNTER CLERK 2017 Cough ICD-786.2 Inactive Adele Feldman RENTAL COUNTER CLERK 06/04 SINUSITIS, ACUTE ICD-461.9 Inactive Ike lange MD Fatigue ICD-780.79 Inactive Adele Feldman RENTAL COUNTER CLERK 2017 Bronchitis acute with bronchospasm ICD-466.0 I nactive Adele Feldman RENTAL COUNTER CLERK Animal bite ICD-919.8 Inactive Adele Feldman LP N Mycoplasma infection ICD-041.81 Inactive Anit a Feldman RENTAL COUNTER CLERK Amenorrhea, secondary ICD-626.0 Inactive Ani quinton Downsn RENTAL COUNTER CLERK Medication List Medication Instructions Start Date Stop Date Generic Name NDC Status Provider Patient Instruction ADDERALL 10 MG ORAL TABLET 1 tab twice daily 2 AMPHETAMINE-DEXTROAMPHETAMINE 68619766619 No Longer Active Nitza Phi llips Scribe Active ZITHROMAX Z-MARTIN 250 MG ORAL TABLET 2 today and then 1 daily for 4 days AZITHROMYCIN 03218196299 No Longer Active Nitza Osman lips Scribe Active BENZONATATE 200 MG ORAL CAPSULE 1 three times a day as neede d for cough BENZONATATE 24261959519 No Longer Active Nitza Osman lips Scribe Active VITAMIN D3 17880 UNIT ORAL CAPSULE 1 pill Week x 4 mo nths for vitamin D deficiency/osteoporosis CHOLECALCIFEROL 35353906606 N o Longer Active Layla Mcmullen Active BACTROBAN 2 % EXTERNAL CREAM Apply to affected area BID for up to 10 days MUPIROCIN CALCIUM 69617889748 No Longer Active Ike Deluna MD Active CIPRO 500 MG ORAL TABLET 1 tablet by mouth twice daily CIPROFLOXACIN HCL 10298953343 No Longer Active Adriana Bender LPN Active AUGMENTIN 875-125 MG ORAL TABLET 1 po BID x 10 days 18/04/06 AMOXICILLIN-POT CLAVULANATE 29737694635 No Longer Active Adriana Bender LPN Active MODAFINIL 200 MG ORAL TABLET Take 1/2 tab po in the am and 1 /2 tab po at noon MODAFINIL 85163161712 Active Bertrand Patel DO Ac tive CYCLOBENZAPRINE HCL 10 MG ORAL TABLET Take 1 tab TID PRN for mus triston pain CYCLOBENZAPRINE HCL 92824918844 No Longer Active Bertrand Patel DO Active TESSALON PERLES 100 MG ORAL CAPSULE 1 tablet by mouth 3 times da juan pablo BENZONATATE 45078000876 No Longer Active Bertrand Patel DO Ac tive NEBULIZER use as directed NEBULIZERS 01154580229 No Longer Active Bertrand Patel DO Active ALBUTEROL SULFATE (2.5 MG/3ML) 0.083% INHALATION NEBUL IZATION SOLUTION one vial per nebulizer every 4-6 hours as needed ALBUTERO L SULFATE 50593157029 No Longer Active Bertrand Patel DO Active SYMBICORT 160-4.5 MCG/ACT INHALATION AEROSOL 2 puffs BID 9 BUDESONIDE-FORMOTEROL FUMARATE 50343146349 No Longer Active Bertrand Patel DO Active PREDNISONE 20 MG ORAL TABLET take 3 tabs daily for 3 d ays, 2 tabs daily for 3 days, 1 tab daily for 3 days, 1/2 tab daily for 3 days 08/02 PREDNISONE 84518898410 No Longer Active Silvia Arnold ELEMENTARY VOCAL MUSIC TEACHER Acti ve AZITHROMYCIN 250 MG ORAL TABLET Take 2 tabs po today then 1 tab po daily AZITHROMYCIN 84898141372 No Longer Active Silvia gavin ELEMENTARY VOCAL MUSIC TEACHER Active AUGMENTIN 875-125 MG ORAL TABLET 1 po BID x 10 days 20 19/07/13 AMOXICILLIN-POT CLAVULANATE 37672610790 No Longer Active Adriana Bender LPN Active CHEWABLE CALCIUM 500-200-40 MG-UNT-MCG ORAL TABLET CHEWABLE 1 chew tab bid CALCIUM-VITAMIN D-VITAMIN K 56242317184 Active Silvia garlandgypsy ELEMENTARY VOCAL MUSIC TEACHER Active EQ COMPLETE MULTIVIT ADULT 50+ ORAL TABLET 1 tab po bid MULTIPLE VITAMINS-MINERALS 36928230046 Active Silvia Arnold ELEMENTARY VOCAL MUSIC TEACHER Act jairo HYDROCODONE-ACETAMINOPHEN 7.5-325 MG ORAL TABLET TAKE ONE TAB EVERY 6 HOURS BY MOUTH NEEDED FOR PAIN HYDROCODONE-ACETAMINOPHEN 004 41030536 Active Adele Feldman RENTAL COUNTER CLERK Active LORTAB 7.5-500 MG ORAL TABLET take one po Q6 hours 201 09/12/01 HYDROCODONE-ACETAMINOPHEN 97772783324 No Longer Active Nirmal Robbins RN Active [facility] MELATONIN 5-10 MG ORAL TABLET EXTENDED RELEASE Jair e one by mouth daily at bedtime MELATONIN-PYRIDOXINE 46540437969 No Longer Acti ve Bertrand Patel DO Active VITAMIN E 200 UNIT ORAL CAPSULE 1 cap po qd VITAM IN E 15279080787 No Longer Active Bertrand Patel DO Active B-12 1000 MCG ORAL CAPSULE 1 tab daily CYANOCOB ALAMIN 32711357426 No Longer Active Bertrand Patel DO Active METFORMIN HCL 500 MG ORAL TABLET 1 bid METFOR MIN HCL 26533944014 No Longer Active Bertrand Patel DO Active FUROSEMIDE 20 MG ORAL TABLET 1 pill by mouth daily if needed for edema FUROSEMIDE 07182753718 No Longer Active Bertrand Patel DO Active PRAVASTATIN SODIUM 20 MG ORAL TABLET 1 tablet by mouth daily at bedtime PRAVASTATIN SODIUM 23398110028 No Longer Active Bertrand Patel DO Active AUGMENTIN 875-125 MG ORAL TABLET 1 pill by mouth twice daily 201 09/10/00 AMOXICILLIN-POT CLAVULANATE 15003809537 No Longer Active Yoli Mercado MD PhD Active LEVAQUIN 500 MG ORAL TABLET 1 pill by mouth daily 2013 LEVOFLOXACIN 31681952204 No Longer Active Yoli Mercado MD PhD Acti ve AMLODIPINE BESYLATE 5 MG ORAL TABLET 1 tablet by mouth daily for blood pressure AMLODIPINE BESYLATE 95583966766 Active Bertrand Patel DO Active MICARDIS 80 MG ORAL TABLET 1 tablet daily for blood pressure 07/30 TELMISARTAN 01127592480 Active Bertrand Patel DO Active MICARDIS HCT 80-12.5 MG ORAL TABLET 1 qd TELMISARTAN-HCTZ 66160985509 No Longer Active Bertrand Patel DO Active CINNAMON ALPHA LIPOIC AC CMPLX CAPSULE by mouth twice a day in AM by mouth twice a day in PM ALPHA LIPOIC CKVT-EZ-PFLHJLES CA PS 87135957777 No Longer Active Bertrand Patel DO Active AZITHROMYCIN 500 MG INTRAVENOUS SOLUTION RECONSTITUTED 1 po q da y AZITHROMYCIN 59272959298 No Longer Active Bertrand Patel DO A ctive CYMBALTA 30 MG ORAL CAPSULE DELAYED RELEASE PARTICLES 1 cap by mouth daily DULOXETINE HCL 15393550458 No Longer Active Bertrand marquez DO Active CYMBALTA 60 MG ORAL CAPSULE DELAYED RELEASE PARTICLES 1 cap by mouth daily DULOXETINE HCL 69031493945 Active Bertrand Patel DO Active WELLBUTRIN 75 MG ORAL TABLET 2 times daily BUPR OPION HCL 67242577290 No Longer Active Bertrand Patel DO Active PROAIR HFA 108 (90 Base) MCG/ACT INHALATION AEROSOL SO LUTION take one to two puffs po Q4-6 hour prn cough and shortness of breath ALBUTEROL SULFATE 10979093086 Active Silvia Arnold APRN Active AZITHROMYCIN 250 MG ORAL TABLET take 2 po today then take 1 po days 2-5 AZITHROMYCIN 40999008667 No Longer Active Adolfo OSORIO Active PERMETHRIN 5 % EXTERNAL CREAM apply neck to toes tonig ht and then rinse off in morning. repeat at 7 days PERMETHRIN 10384231261 No Longer Active Adolfo OSORIO Active AMOXICILLIN 500 MG ORAL CAPSULE 2 po BID x 10 days 201 07/15/00 AMOXICILLIN 12099980772 No Longer Active Yoli Mercado MD PhD Acti ve ALPRAZOLAM 0.5 MG ORAL TABLET 1 tab by mouth tid ALPRAZOLAM 62543203496 Active Nitza Mullins LPN Active INSUPEN ULTRAFIN 31G X 6 MM USE DIRECTED INSULIN PEN NEEDLE 58027339363 No Longer Active Bertrand Patel DO Active TRANSDERM-SCOP (1.5 MG) 1 MG/3DAYS TRANSDERMAL PATCH 7 2 HOUR 1 patch applied behind ear q 3 day SCOPOLAMINE BASE 24437298174 No Lo nger Active Bertrand Patel DO Active MACRODANTIN 100 MG ORAL CAPSULE one p.o. b.i.d. x2 weeks NITROFURANTOIN MACROCRYSTAL 36003842817 No Longer Active Bertrand Patel DO Active MACRODANTIN 100 MG ORAL CAPSULE one p.o. b.i.d. x2 weeks MACRODANTIN 100 MG ORAL CAPSULE 1911189 NITROFURANTOIN MACROCRYSTAL Inactive TRANSDERM-SCOP (1.5 MG) 1 [...] days PERMETHRIN 5 % EXTER NAL CREAM 302098 PERMETHRIN Inactive WELLBUTRIN 75 MG ORAL TABLET 2 times daily WELLBUTRIN 75 MG ORAL TABLET 307511 BUPROPION HCL Inactive CYMBALTA 30 MG ORAL CAPSULE DELAYED RELEASE PARTICLES 1 cap by mouth daily CYMBALTA 30 MG ORAL CAPSULE DELAYED RELE ASE PARTICLES 718129 DULOXETINE HCL Inactive AZITHROMYCIN 500 MG INTRAVENOUS SOLUTION RECONSTITUTED 1 po q da y AZITHROMYCIN 500 MG INTRAVENOUS SOLUTION RECONSTITUTED 36047 034702 AZITHROMYCIN Inactive CINNAMON ALPHA LIPOIC AC CMPLX CAPSULE by mouth twice a day in AM by mouth twice a day in PM CINNAMON ALPHA LIPOIC AC CMPLX CAPSULE ALPHA LIPOIC [id number] CAPS Inactive MICARDIS HCT 80-12.5 MG ORAL TABLET 1 qd 07/30 MICARDIS HCT 80-12.5 MG ORAL TABLET 334602 TELMISARTAN-HCTZ Inactive PRAVASTATIN SODIUM 20 MG ORAL TABLET 1 tablet by mouth daily at bedtime PRAVASTATIN SODIUM 20 MG ORAL TABLET 476402 PRAVASTATIN SODIUM Inactive FUROSEMIDE 20 MG ORAL TABLET 1 pill by mouth daily if needed for edema FUROSEMIDE 20 MG ORAL TABLET 351067 FUROSEMIDE Inactive METFORMIN HCL 500 MG ORAL TABLET 1 bid METFORMIN HCL 500 MG ORAL TABLET 169308 METFORMIN HCL Inactive B-12 1000 MCG ORAL CAPSULE 1 tab daily B -12 1000 MCG ORAL CAPSULE CYANOCOBALAMIN Inactive VITAMIN E 200 UNIT ORAL CAPSULE 1 cap po qd 1 VITAMIN E 200 UNIT ORAL CAPSULE 6153408 VITAMIN E Inactive [facility] MELATONIN 5-10 MG ORAL TABLET EXTENDED RELEASE Jair e one by mouth daily at bedtime [facility] MELATONIN 5-10 M G ORAL TABLET EXTENDED RELEASE MELATONIN-PYRIDOXINE Inactive LORTAB 7.5-500 MG ORAL TABLET take one po Q6 hours 201 09/12/01 LORTAB 7.5-500 MG ORAL TABLET 336181 HYDROCODONE-ACETAMINOPHEN Inactive AZITHROMYCIN 250 MG ORAL TABLET Take 2 tabs po today then 1 tab po daily AZITHROMYCIN 250 MG ORAL TABLET 764264 AZITHROMY BERNARDO Inactive SYMBICORT 160-4.5 MCG/ACT INHALATION AEROSOL 2 puffs BID 9 SYMBICORT 160-4.5 MCG/ACT INHALATION AEROSOL BUDESONIDE-FORM OTEROL FUMARATE Inactive ALBUTEROL SULFATE (2.5 MG/3ML) 0.083% INHALATION NEBUL IZATION SOLUTION one vial per nebulizer every 4-6 hours as needed ALBUTEROL SULFATE (2.5 MG/3ML) 0.083% INHALATION NEBULIZATION SOLUTION 215025 ALBUTER OL SULFATE Inactive NEBULIZER use as directed NEBULIZER NEBULI ZERS Inactive TESSALON PERLES 100 MG ORAL CAPSULE 1 tablet by mouth 3 times da juan pablo TESSALON PERLES 100 MG ORAL CAPSULE 686608 BENZONATATE Inactive CYCLOBENZAPRINE HCL 10 MG ORAL TABLET Take 1 tab TID PRN for mus triston pain CYCLOBENZAPRINE HCL 10 MG ORAL TABLET 737703 CYCLOBENZA ANUJA HCL Inactive AUGMENTIN 875-125 MG ORAL TABLET 1 po BID x 10 days 20 18/04/06 AUGMENTIN 875-125 MG ORAL TABLET 041643 AMOXICILLIN-POT CLAVULANATE Inactive BACTROBAN 2 % EXTERNAL CREAM Apply to affected area BID for up to 10 days BACTROBAN 2 % EXTERNAL CREAM 551251 MUPIROCIN CA LCIUM Inactive VITAMIN D3 91865 UNIT ORAL CAPSULE 1 pill Week x 4 mo nths for vitamin D deficiency/osteoporosis VITAMIN D3 43181 UNIT ORAL CAPSULE CHOLECALCIFEROL Inactive BENZONATATE 200 MG ORAL CAPSULE 1 three times a day as neede d for cough BENZONATATE 200 MG ORAL CAPSULE 833209 BENZONATA TE Inactive ZITHROMAX Z-MARTIN 250 MG ORAL TABLET 2 today and then 1 daily for 4 days ZITHROMAX Z-MARTIN 250 MG ORAL TABLET 803743 AZITHR OMYCIN Inactive ADDERALL 10 MG ORAL TABLET 1 tab twice daily 2 ADDERALL 10 MG ORAL TABLET 461301 AMPHETAMINE-DEXTROAMPHETAMINE Inactive AMOXICILLIN 500 MG ORAL CAPSULE 2 po BID x 10 days 201 07/15/00 AMOXICILLIN 500 MG ORAL CAPSULE 548851 AMOXICILLIN Inactive AZITHROMYCIN 250 MG ORAL TABLET take 2 po today then take 1 po days 2-5 AZITHROMYCIN 250 MG ORAL TABLET 802032 AZITHROMY BERNARDO Inactive LEVAQUIN 500 MG ORAL TABLET 1 pill by mouth daily 2013 LEVAQUIN 500 MG ORAL TABLET 828299 LEVOFLOXACIN Inactive AUGMENTIN 875-125 MG ORAL TABLET 1 pill by mouth twice daily 201 09/10/00 AUGMENTIN 875-125 MG ORAL TABLET 269154 AMOXICILLIN-POT CLAVULANATE Inactive AUGMENTIN 875-125 MG ORAL TABLET 1 po BID x 10 days 19/07/13 AUGMENTIN 875-125 MG ORAL TABLET 386225 AMOXICILLIN-POT CLAVULANATE Inactive PREDNISONE 20 MG ORAL TABLET take 3 tabs daily for 3 d ays, 2 tabs daily for 3 days, 1 tab daily for 3 days, 1/2 tab daily for 3 days 08/02 PREDNISONE 20 MG ORAL TABLET 452958 PREDNISONE Inactive CIPRO 500 MG ORAL TABLET 1 tablet by mouth twice daily CIPRO 500 MG ORAL TABLET 674206 CIPROFLOXACIN HCL Inactive Vital Signs Date Name [...] 0-19 Encounters Code Encounter Date Provider Facility CPT-42985 Level 4 Est. Patient 15:33:35 STREETCAR DISPATCHER Bertrand marquez [facility] CPT-52301 Level 4 Est. Patient 12:31:54 CDT Bertrand marquez [facility] CPT-54034 Level 3 Est. Patient 11:27:00 STREETCAR DISPATCHER Ike Deluna MD [facility] CPT-47099 Level 3 Est. Patient 08:50:57 STREETCAR DISPATCHER Dangelo ELEMENTARY VOCAL MUSIC TEACHER [facility] CPT-69627 Level 3 Est. Patient 10:04:13 CDT Bertrand marquez [facility] CPT-14153 Level 4 Est. Patient 16:02:10 STREETCAR DISPATCHER Dangelo ELEMENTARY VOCAL MUSIC TEACHER [facility] CPT-13846 Level 3 Est. Patient 13:04:54 STREETCAR DISPATCHER Dangelo ELEMENTARY VOCAL MUSIC TEACHER [facility] CPT-12573 Level 3 Est. Patient 12:56:37 CDT Bertrand marquez [facility] CPT-01814 Level 3 Est. Patient 19:12:03 CDT Yoli tolbert MD [facility] CPT-16883 Level 3 Est. Patient 14:36:01 CDT Yoli tolbert MD [facility] CPT-55100 Level 2 Est. Patient 08:00:22 CDT Jcarlos dc MD [facility] CPT-72413 Level 3 Est. Patient 19:06:55 CDT Bertrand marquez [facility] CPT-85158 Level 3 Est. Patient 10:08:23 STREETCAR DISPATCHER Bertrand marquez [facility] CPT-93891 Level 3 Est. Patient 16:37:54 STREETCAR DISPATCHER Bertrand marquez [facility] CPT-58534 Level 3 Est. Patient 11:31:59 STREETCAR DISPATCHER Bertrand marquez [facility] CPT-16187 Level 3 Est. Patient 10:20:08 CDT Adolfo villasenor [facility] CPT-43983 Level 3 Est. Patient 13:45:20 CDT Sanket buckley [facility] CPT-04690 Level 3 Est. Patient 12:51:06 CDT Adolfo villasenor [facility] CPT-91118 Level 3 Est. Patient 11:22:51 STREETCAR DISPATCHER Yoli tolbert MD [facility] CPT-99276 Level 3 Est. Patient 13:33:19 CDT Bertrand marquez [facility] Procedures Code Procedure Name Date Entry Date Standard Desc ription CPT-22330 Wound Culture - LAB USE ONLY 15:45:25 CDT 2 CPT-67211 Venipuncture Draw Fee 10:23:01 CDT CPT-J0696 Rocephin 1000 mg (Ceftriaxone) 16:20:30 STREETCAR DISPATCHER CPT-25946 Abx/Therapy Injection 16:20:29 STREETCAR DISPATCHER CPT-J0696 Rocephin 1gm Inj Solr 15:51:59 STREETCAR DISPATCHER CPT-36108 Chest 2V Frontal and Lat 15:20:28 STREETCAR DISPATCHER 07/22 CPT-85363 Breathing Tx 14:51:55 STREETCAR DISPATCHER CPT-56929 Breathing Tx 09:57:16 STREETCAR DISPATCHER CPT-80494 Knee comp 4/> V 11:58:06 STREETCAR DISPATCHER
--- OUTSIDE RECORDS SUMMARY | 2019-11-13 10:30 | XMS REPORT | Clinical Summary ---
Author Author Admin, Enrique Adamson Organization [employer] Address Unknown Phone Unavailable Allergies, Adverse Reactions, [...] Cough SINUSITIS, ACUTE 461.9 Active Silvia PARISI clinical pharmacist sinusitis, unspecified Fatigue 780.79 Active Silvia Arnold [...] tablet by mouth twice daily CIPROFLOXACIN HCL 09150581808 No Longer Active Adriana Bender LPN Active AUGMENTIN 875-125 MG TAB 1 po BID x 10 days AMOXICILLIN- POT CLAVULANATE 88454957643 No Longer Active Adriana Bender LPN Active BACTROBAN 2 % CREAM Apply to affected area BID for up to 10 days 20 18/03/27 MUPIROCIN CALCIUM 36899087508 Active Silvia Arnold APRN Act jairo MODAFINIL 200 MG ORAL TABS Take 1/2 tab po in the am and 1/2 tab po at noon MODAFINIL 56898406040 Active Silvia Arnold APRN Active CYCLOBENZAPRINE HCL 10 MG TABS Take 1 tab TID PRN for muscle pain CYCLOBENZAPRINE HCL 13751909205 No Longer Active Bertrand Patel DO Ac tive TESSALON PERLES 100 MG CAP 1 tablet by mouth 3 times daily 07/07 BENZONATATE 47945182939 No Longer Active Bertrand Patel DO Ac tive NEBULIZER MISC use as directed NEBULIZERS 821154 27419 No Longer Active Bertrand Patel DO Active ALBUTEROL SULFATE 0.083 % NEBU SOLN one vial per nebul izer every 4-6 hours as needed ALBUTEROL SULFATE 01937906885 No Longer Active Bertrand Patel DO Active SYMBICORT 160-4.5 MCG/ACT AERO 2 puffs BID BUDESONIDE- FORMOTEROL FUMARATE 27328108829 No Longer Active Bertrand Patel DO Ac tive PREDNISONE 20 MG TAB take 3 tabs daily for 3 days , 2 tabs daily for 3 days, 1 tab daily for 3 days, 1/2 tab daily for 3 days P REDNISONE 73667532647 No Longer Active Silvia Arnold APRN Active AZITHROMYCIN 250 MG ORAL TABS Take 2 tabs po today then 1 ta b po daily AZITHROMYCIN 66960270621 No Longer Active Silvia gavin APRN Active AUGMENTIN 875-125 MG TAB 1 po BID x 10 days AMOXICILLIN- POT CLAVULANATE 98589790214 No Longer Active Adriana Bender LPN Active CHEWABLE CALCIUM 500-200-40 MG-UNT-MCG ORAL CHEW 1 chew tab bid 201 11/03/03 CALCIUM-VITAMIN D-VITAMIN K 33084287024 Active Silvia Arnold APRN Active EQ COMPLETE MULTIVIT ADULT 50+ ORAL TABS 1 tab po bid MULTIPLE VITAMINS-MINERALS 53697649315 Active Silvia Arnold APRN Act jairo HYDROCODONE-ACETAMINOPHEN 7.5-325 MG TABS TAKE ONE TAB EVERY 6 HOURS BY MOUTH NEEDED FOR PAIN HYDROCODONE-ACETAMINOPHEN 83568903534 Acti ve Lizy العلي Active LORTAB 7.5-500 MG TABS take one po Q6 hours HYDROCODONE-ACETAMINOPHEN No Longer Active Nirmal Robbins RN Active [facility] MELATONIN 5-10 MG CR-TABS Take one by mouth daily at bedtime MELATONIN-PYRIDOXINE 83694248636 No Longer Active Bertrand Patel DO Active VITAMIN E 200 UNIT CAPS 1 cap po qd VITAMIN E 316 81057792 No Longer Active Bertrand Patel DO Active B-12 1000 MCG CAPS 1 tab daily CYANOCOBALAMIN 31 672278656 No Longer Active Bertrand Patel DO Active METFORMIN HCL 500 MG TABS 1 bid METFORMIN HCL 89261605614 No Longer Active Bertrand Patel DO Active FUROSEMIDE 20 MG TABS 1 pill by mouth daily if needed for edema FUROSEMIDE 73748637727 No Longer Active Bertrand Patel DO Act jairo PRAVASTATIN SODIUM 20 MG TABS 1 tablet by mouth daily at bedtime PRAVASTATIN SODIUM 02032088615 No Longer Active Bertrand Patel DO Active AUGMENTIN 875-125 MG TABS 1 pill by mouth twice daily AMOXICILLIN-POT CLAVULANATE 39074182280 No Longer Active Yoli Mercado MD PhD Active LEVAQUIN 500 MG TABS 1 pill by mouth daily LEVO FLOXACIN 03974544591 No Longer Active Yoli Mercado MD PhD Active AMLODIPINE BESYLATE 5 MG TABS 1 tablet by mouth daily for bl ood pressure AMLODIPINE BESYLATE 23733462451 Active Keysha Jones MA Active MICARDIS 80 MG TABS 1 tablet daily for blood pressure TELMISARTAN 24133870484 Active Keysha Jones MA Active MICARDIS HCT 80-12.5 MG TABS 1 qd TELMISARTA N-HCTZ 88933382449 No Longer Active Bertrand Patel DO Active CINNAMON ALPHA LIPOIC AC CMPLX CAPS by mouth twice a d ay in AM by mouth twice a day in PM ALPHA LIPOIC [id number] CAPS 907631 21781 No Longer Active Bertrand Patel DO Active AZITHROMYCIN 500 MG SOLR 1 po q day AZITHROMYCI N 62971211772 No Longer Active Bertrand Patel DO Active CYMBALTA 30 MG CPEP 1 cap by mouth daily DULOXE CATHI HCL 71191683414 No Longer Active Bertrand Patel DO Active CYMBALTA 60 MG CPEP 1 cap by mouth daily DULOXE CATHI HCL 11692817066 Active Keysha Jones MA Active WELLBUTRIN 75 MG TABS 2 times daily BUPROPION H CL 21691753899 No Longer Active Bertrand Patel DO Active PROAIR HFA 108 (90 BASE) MCG/ACT AERS take one to two puffs po Q4-6 hour prn cough and shortness of breath ALBUTEROL SULFATE 3131647106 2 Active Silvia Arnold HOIST CYLINDER LOADER Active AZITHROMYCIN 250 MG TABS take 2 po today then take 1 po days 2-5 AZITHROMYCIN 94210433260 No Longer Active Adolfo OSORIO Active PERMETHRIN 5 % CREA apply neck to toes tonight a nd then rinse off in morning. repeat at 7 days PERMETHRIN 81699942574 No Longer Active Adolfo OSORIO Active AMOXICILLIN 500 MG CAPS 2 po BID x 10 days AMOX ICILLIN 43159901596 No Longer Active Yoli Mercado MD PhD Active ALPRAZOLAM 0.5 MG TAB 1 tab by mouth tid ALPRAZOL AM 75075823327 Active Nitza Mullins RPT,RMA Active INSUPEN ULTRAFIN 31G X 6 MM MISC USE DIRECTED 03/04 INSULIN PEN NEEDLE 05197670886 No Longer Active Bertrand Patel DO Active TRANSDERM-SCOP 1.5 MG PT72 1 patch applied behind ear q 3 day 20 04/13/28 SCOPOLAMINE BASE 11355071701 No Longer Active Bertrand Patel DO Active MACRODANTIN 100 MG CAPS one p.o. b.i.d. x2 weeks 03/04 NITROFURANTOIN MACROCRYSTAL 64460207963 No Longer Active Bertrand Patel DO Active MACRODANTIN 100 MG CAPS one p.o. b.i.d. x2 weeks 03/04 MACRODANTIN 100 MG CAPS 9370904 NITROFURANTOIN MACROCRYSTAL Inactive TRANSDERM-SCOP 1.5 MG PT72 [...] at 7 days PERMETHRIN 5 % CREA 861233 PERMETHRIN Inactive WELLBUTRIN 75 MG TABS 2 times daily WELLBUTRIN 75 MG TABS BUPROPION HCL Inactive CYMBALTA 30 MG CPEP 1 cap by mouth daily CYMBALTA 30 MG CPEP 975358 DULOXETINE HCL Inactive AZITHROMYCIN 500 MG SOLR 1 po q day ALTA THROMYCIN 500 MG SOLR 25924069415 AZITHROMYCIN Inactive CINNAMON ALPHA LIPOIC AC CMPLX CAPS by mouth twice a d ay in AM by mouth twice a day in PM CINNAMON ALPHA LIPOIC AC CMPLX CAPS ALPHA LIPOIC [id number] CAPS Inactive MICARDIS HCT 80-12.5 MG TABS 1 qd MICARDI S HCT 80-12.5 MG TABS 897537 TELMISARTAN-HCTZ Inactive PRAVASTATIN SODIUM 20 MG TABS 1 tablet by mouth daily at bedtime PRAVASTATIN SODIUM 20 MG TABS 212089 PRAVASTATIN SODIUM Inactive FUROSEMIDE 20 MG TABS 1 pill by mouth daily if needed for edema FUROSEMIDE 20 MG TABS 345347 FUROSEMIDE Inactive METFORMIN HCL 500 MG TABS 1 bid METFORMIN HCL 500 MG TABS 271227 METFORMIN HCL Inactive B-12 1000 MCG CAPS 1 tab daily B-12 1000 MCG CAP S CYANOCOBALAMIN Inactive VITAMIN E 200 UNIT CAPS 1 cap po qd VITAMIN E 2 00 UNIT CAPS 7435081 VITAMIN E Inactive [facility] MELATONIN 5-10 MG CR-TABS Take one by mouth daily at bedtime [facility] MELATONIN 5-10 MG CR-TABS MELATONIN-PYRIDOXI NE Inactive LORTAB 7.5-500 MG TABS take one po Q6 hours LORTAB 7.5-500 MG TABS HYDROCODONE-ACETAMINOPHEN Inactive AZITHROMYCIN 250 MG ORAL TABS Take 2 tabs po today then 1 ta b po daily AZITHROMYCIN 250 MG ORAL TABS 5679244 AZITHROMYCI N Inactive SYMBICORT 160-4.5 MCG/ACT AERO 2 puffs BID SYMBICORT 160- 4.5 MCG/ACT AERO BUDESONIDE-FORMOTEROL FUMARATE Inactive ALBUTEROL SULFATE 0.083 % NEBU SOLN one vial per nebul izer every 4-6 hours as needed ALBUTEROL SULFATE 0.083 % NEBU SOLN 73968 8 ALBUTEROL SULFATE Inactive NEBULIZER MISC use as directed NEBULIZER MISC NEBULIZERS Inactive TESSALON PERLES 100 MG CAP 1 tablet by mouth 3 times daily 07/07 TESSALON PERLES 100 MG CAP 522509 BENZONATATE Inact jairo CYCLOBENZAPRINE HCL 10 MG TABS Take 1 tab TID PRN for muscle pain CYCLOBENZAPRINE HCL 10 MG TABS 335978 CYCLOBENZAPRINE HCL Inactive AUGMENTIN 875-125 MG TAB 1 po BID x 10 days AUGMENTIN 875- 125 MG TAB 002681 AMOXICILLIN-POT CLAVULANATE Inactive AMOXICILLIN 500 MG CAPS 2 po BID x 10 days AMOXICILLIN 500 MG CAPS 315783 AMOXICILLIN Inactive AZITHROMYCIN 250 MG TABS take 2 po today then take 1 po days 2-5 AZITHROMYCIN 250 MG TABS 8116568 AZITHROMYCIN Inactiv e LEVAQUIN 500 MG TABS 1 pill by mouth daily LEVAQUIN 500 MG TABS 190909 LEVOFLOXACIN Inactive AUGMENTIN 875-125 MG TABS 1 pill by mouth twice daily AUGMENTIN 875-125 MG TABS 898517 AMOXICILLIN-POT CLAVULANATE Inacti ve AUGMENTIN 875-125 MG TAB 1 po BID x 10 days AUGMENTIN 875- 125 MG TAB 160315 AMOXICILLIN-POT CLAVULANATE Inactive PREDNISONE 20 MG TAB take 3 tabs daily for 3 days , 2 tabs daily for 3 days, 1 tab daily for 3 days, 1/2 tab daily for 3 days PREDNISONE 20 MG TAB 268289 PREDNISONE Inactive CIPRO 500 MG TAB 1 tablet by mouth twice daily CIPRO 500 MG TAB 779861 CIPROFLOXACIN HCL Inactive Vital Signs Date Name [...] 5.8 % 4.3-6.0 cholesterol, serum 200 mg/dL 503-362 6402/07/22 triglyceride, serum, fasting 56 mg/dL 30-200 HDL cholesterol, serum 80 mg/dL 32-96 LDL cholesterol, serum 109 mg/dL 0-130 albumin/creatinine ratio, urine < 30 mg/g mg/g{creat} 0-2 9 TSH 1.16 m[iU]/mL 0.36-3.74 sodium, serum 142 mmol/L 559-028 8721/07/22 carbon dioxide, venous blood 33.1 mmol/L 21.0-32 [...] Negative;Positive Encounters Code Encounter Date Provider Facility CPT-15347 Level 3 Est. Patient 08:50:57 COMPOUND FINISHER Silvia And dmitriy [facility] CPT-47682 Level 3 Est. Patient 10:04:13 CDT Bertrand marquez [facility] CPT-82617 Level 4 Est. Patient 16:02:10 COMPOUND FINISHER Silvia And dmitriy [facility] CPT-52937 Level 3 Est. Patient 13:04:54 COMPOUND FINISHER Dangelo [facility] CPT-88165 Level 3 Est. Patient 12:56:37 CDT Bertrand marquez [facility] CPT-58813 Level 3 Est. Patient 19:12:03 CDT Yoli tolbert MD PhD [facility] CPT-58015 Level 3 Est. Patient 14:36:01 CDT Yoli tolbert MD PhD [facility] CPT-45494 Level 2 Est. Patient 08:00:22 CDT Jcarlos dc MD [facility] CPT-70721 Level 3 Est. Patient 19:06:55 CDT Bertrand marquez [facility] CPT-15344 Level 3 Est. Patient 10:08:23 COMPOUND FINISHER Bertrand marquez [facility] CPT-73129 Level 3 Est. Patient 16:37:54 COMPOUND FINISHER Bertrand marquez [facility] CPT-03495 Level 3 Est. Patient 11:31:59 COMPOUND FINISHER Bertrand marquez [facility] CPT-26771 Level 3 Est. Patient 10:20:08 CDT Adolfo villasenor [facility] CPT-23773 Level 3 Est. Patient 13:45:20 CDT Sanket buckley [facility] CPT-88357 Level 3 Est. Patient 12:51:06 CDT Adolof villasenor [facility] CPT-15406 Level 3 Est. Patient 11:22:51 COMPOUND FINISHER Yoli tolbert MD [facility] CPT-89631 Level 3 Est. Patient 13:33:19 CDT Bertrand marquez [facility] Procedures Code Procedure Name Date Entry Date Standard Desc ription CPT-14138 Wound Culture - LAB USE ONLY 15:45:25 CDT 2 CPT-74760 Venipuncture Draw Fee 10:23:01 CDT CPT-J0696 Rocephin 1000 mg (Ceftriaxone) 16:20:30 COMPOUND FINISHER CPT-45598 Abx/Therapy Injection 16:20:29 COMPOUND FINISHER CPT-J0696 Rocephin 1gm Inj Solr 15:51:59 COMPOUND FINISHER CPT-84678 Chest 2V Frontal and Lat 15:20:28 COMPOUND FINISHER 07/22 CPT-49301 Breathing Tx 14:51:55 COMPOUND FINISHER CPT-66274 Breathing Tx 09:57:16 COMPOUND FINISHER CPT-97089 Knee comp 4/> V 11:58:06 COMPOUND FINISHER
--- OUTSIDE RECORDS SUMMARY | 2019-11-13 10:31 | XMS REPORT | Clinical Summary ---
Author Author Admin, Enrique Adamson Organization [employer] Address Unknown Phone Unavailable Allergies, Adverse Reactions, Alerts Allergy Name Reaction Description Start Date Severity Status Pr ovider BYETTA 10 MCG PEN Critical Active Lilia Clemons RN METAMUCIL Critical Active Bertrand Paetl DO BACTRIM Critical Active Bertrand Patel DO [...] 201 09/09/28 SHORTNESS OF BREATH ICD-786.05 Inactive Yloi Mercado MD PhD RIB PAIN, RIGHT SIDED [...] NDC Status Provider Patient Instruction VITAMIN D3 50220 UNIT CAPS 1 pill Week x 4 months for vitamin D deficiency/osteoporosis CHOLECALCIFEROL 50511460120 Active Darlyn Monzon Active BENZONATATE 200 MG ORAL CAPS 1 three times a day as needed for c ough BENZONATATE 25066209280 Active Ike Deluna MD Acti ve ZITHROMAX Z-MARTIN 250 MG TABS 2 today and then 1 daily for 4 days 201 12/01/06 AZITHROMYCIN 82858423086 Active Ike Deluna MD Active ADDERALL 10 MG ORAL TABS 1 tab twice daily AMPHETAMINE-DEXTROAMPHETAMINE 31044290861 Active Ike Deluna MD Active BACTROBAN 2 % CREAM Apply to affected area BID for up to 10 days MUPIROCIN CALCIUM 21789781766 No Longer Active Ike Deluna MD Active CIPRO 500 MG TAB 1 tablet by mouth twice daily CIPROFLOXACIN HCL 78830248609 No Longer Active Adriana Bender LPN Active AUGMENTIN 875-125 MG TAB 1 po BID x 10 days AMOXICILLIN- POT CLAVULANATE 49853956459 No Longer Active Adriana Bender LPN Active MODAFINIL 200 MG ORAL TABS Take 1/2 tab po in the am and 1/2 tab po at noon MODAFINIL 04485731544 Active Darlyn Monzon A ctive CYCLOBENZAPRINE HCL 10 MG TABS Take 1 tab TID PRN for muscle pain CYCLOBENZAPRINE HCL 92179132869 No Longer Active Bertrand Patel DO Ac tive TESSALON PERLES 100 MG CAP 1 tablet by mouth 3 times daily 07/07 BENZONATATE 17284172298 No Longer Active Bertrand Patel DO Ac tive NEBULIZER MISC use as directed NEBULIZERS 293013 64682 No Longer Active Bertrand Patel DO Active ALBUTEROL SULFATE 0.083 % NEBU SOLN one vial per nebul izer every 4-6 hours as needed ALBUTEROL SULFATE 86205659072 No Longer Active Bertrand Patel DO Active SYMBICORT 160-4.5 MCG/ACT AERO 2 puffs BID BUDESONIDE- FORMOTEROL FUMARATE 86169634551 No Longer Active Bertrand Patel DO Ac tive PREDNISONE 20 MG TAB take 3 tabs daily for 3 days , 2 tabs daily for 3 days, 1 tab daily for 3 days, 1/2 tab daily for 3 days P REDNISONE 99676681560 No Longer Active Silvia Arnold APRN Active AZITHROMYCIN 250 MG ORAL TABS Take 2 tabs po today then 1 ta b po daily AZITHROMYCIN 95518897563 No Longer Active Silvia Jorge leslye TOVARN Active AUGMENTIN 875-125 MG TAB 1 po BID x 10 days AMOXICILLIN- POT CLAVULANATE 00212775206 No Longer Active Adriana Bender LPN Active CHEWABLE CALCIUM 500-200-40 MG-UNT-MCG ORAL CHEW 1 chew tab bid 201 11/03/03 CALCIUM-VITAMIN D-VITAMIN K 47549687661 Active Silvia Arnold APRN Active EQ COMPLETE MULTIVIT ADULT 50+ ORAL TABS 1 tab po bid MULTIPLE VITAMINS-MINERALS 49164284819 Active Silvia Arnold APRN Act jairo HYDROCODONE-ACETAMINOPHEN 7.5-325 MG TABS TAKE ONE TAB EVERY 6 HOURS BY MOUTH NEEDED FOR PAIN HYDROCODONE-ACETAMINOPHEN 86321360108 Acti raheel Mcmullen Active LORTAB 7.5-500 MG TABS take one po Q6 hours HYDROCODONE-ACETAMINOPHEN No Longer Active iNrmal Robbins RN Active [facility] MELATONIN 5-10 MG CR-TABS Take one by mouth daily at bedtime MELATONIN-PYRIDOXINE 78380364211 No Longer Active Bertrand Patel DO Active VITAMIN E 200 UNIT CAPS 1 cap po qd VITAMIN E 316 38257558 No Longer Active Bertrand Patel DO Active B-12 1000 MCG CAPS 1 tab daily CYANOCOBALAMIN 31 946861357 No Longer Active Bertrand Patel DO Active METFORMIN HCL 500 MG TABS 1 bid METFORMIN HCL 80805701339 No Longer Active Bertrand Patel DO Active FUROSEMIDE 20 MG TABS 1 pill by mouth daily if needed for edema FUROSEMIDE 31345662426 No Longer Active Bertrand Patel DO Act jairo PRAVASTATIN SODIUM 20 MG TABS 1 tablet by mouth daily at bedtime PRAVASTATIN SODIUM 27222447303 No Longer Active Bertrand Patel DO Active AUGMENTIN 875-125 MG TABS 1 pill by mouth twice daily AMOXICILLIN-POT CLAVULANATE 62904948817 No Longer Active Yoli Mercado MD PhD Active LEVAQUIN 500 MG TABS 1 pill by mouth daily LEVO FLOXACIN 91517611782 No Longer Active Yoli Mercado MD PhD Active AMLODIPINE BESYLATE 5 MG TABS 1 tablet by mouth daily for bl ood pressure AMLODIPINE BESYLATE 88602470162 Active Darlyn Monzon Active MICARDIS 80 MG TABS 1 tablet daily for blood pressure TELMISARTAN 89148126824 Active Darlyn Monzon Active MICARDIS HCT 80-12.5 MG TABS 1 qd TELMISARTA N-HCTZ 56375586197 No Longer Active Bertrand Patel DO Active CINNAMON ALPHA LIPOIC AC CMPLX CAPS by mouth twice a d ay in AM by mouth twice a day in PM ALPHA LIPOIC [id number] CAPS 854196 96111 No Longer Active Bertrand Patel DO Active AZITHROMYCIN 500 MG SOLR 1 po q day AZITHROMYCI N 60142381306 No Longer Active Bertrand Patel DO Active CYMBALTA 30 MG CPEP 1 cap by mouth daily DULOXE CATHI HCL 43589260908 No Longer Active Bertrand Patel DO Active CYMBALTA 60 MG CPEP 1 cap by mouth daily DULOXE CATHI HCL 70866113765 Active Keysha Jones MA Active WELLBUTRIN 75 MG TABS 2 times daily BUPROPION H CL 50159116012 No Longer Active Bertrand W Jorge DO Active PROAIR HFA 108 (90 BASE) MCG/ACT AERS take one to two puffs po Q4-6 hour prn cough and shortness of breath ALBUTEROL SULFATE 1079221771 2 Active Silvia Arnold SET UP MOLD TECHNICIAN Active AZITHROMYCIN 250 MG TABS take 2 po today then take 1 po days 2-5 AZITHROMYCIN 51629924772 No Longer Active Adolfo OSORIO Active PERMETHRIN 5 % CREA apply neck to toes tonight a nd then rinse off in morning. repeat at 7 days PERMETHRIN 80666031266 No Longer Active Adolfo OSORIO Active AMOXICILLIN 500 MG CAPS 2 po BID x 10 days AMOX ICILLIN 71459082625 No Longer Active Yoli Mercado MD PhD Active ALPRAZOLAM 0.5 MG TAB 1 tab by mouth tid ALPRAZOL AM 34789846342 Active Nitza Mullins RPT,RMA Active INSUPEN ULTRAFIN 31G X 6 MM MISC USE DIRECTED 03/04 INSULIN PEN NEEDLE 98524531331 No Longer Active Bertrand Patel DO Active TRANSDERM-SCOP 1.5 MG PT72 1 patch applied behind ear q 3 day 20 04/13/28 SCOPOLAMINE BASE 14808279222 No Longer Active Bertrand Patel DO Active MACRODANTIN 100 MG CAPS one p.o. b.i.d. x2 weeks 03/04 NITROFURANTOIN MACROCRYSTAL 37729018841 No Longer Active Bertrand Patel DO Active MACRODANTIN 100 MG CAPS one p.o. b.i.d. x2 weeks 03/04 MACRODANTIN 100 MG CAPS 6176242 NITROFURANTOIN MACROCRYSTAL Inactive TRANSDERM-SCOP 1.5 MG PT72 [...] at 7 days PERMETHRIN 5 % CREA 902555 PERMETHRIN Inactive WELLBUTRIN 75 MG TABS 2 times daily WELLBUTRIN 75 MG TABS BUPROPION HCL Inactive CYMBALTA 30 MG CPEP 1 cap by mouth daily CYMBALTA 30 MG CPEP 045047 DULOXETINE HCL Inactive AZITHROMYCIN 500 MG SOLR 1 po q day ALTA THROMYCIN 500 MG SOLR 20810488627 AZITHROMYCIN Inactive CINNAMON ALPHA LIPOIC AC CMPLX CAPS by mouth twice a d ay in AM by mouth twice a day in PM CINNAMON ALPHA LIPOIC AC CMPLX CAPS ALPHA LIPOIC [id number] CAPS Inactive MICARDIS HCT 80-12.5 MG TABS 1 qd MICARDI S HCT 80-12.5 MG TABS 352531 TELMISARTAN-HCTZ Inactive PRAVASTATIN SODIUM 20 MG TABS 1 tablet by mouth daily at bedtime PRAVASTATIN SODIUM 20 MG TABS 275502 PRAVASTATIN SODIUM Inactive FUROSEMIDE 20 MG TABS 1 pill by mouth daily if needed for edema FUROSEMIDE 20 MG TABS 380671 FUROSEMIDE Inactive METFORMIN HCL 500 MG TABS 1 bid METFORMIN HCL 500 MG TABS 218260 METFORMIN HCL Inactive B-12 1000 MCG CAPS 1 tab daily B-12 1000 MCG CAP S CYANOCOBALAMIN Inactive VITAMIN E 200 UNIT CAPS 1 cap po qd VITAMIN E 2 00 UNIT CAPS 8122481 VITAMIN E Inactive [facility] MELATONIN 5-10 MG CR-TABS Take one by mouth daily at bedtime [facility] MELATONIN 5-10 MG CR-TABS MELATONIN-PYRIDOXI NE Inactive LORTAB 7.5-500 MG TABS take one po Q6 hours LORTAB 7.5-500 MG TABS HYDROCODONE-ACETAMINOPHEN Inactive AZITHROMYCIN 250 MG ORAL TABS Take 2 tabs po today then 1 ta b po daily AZITHROMYCIN 250 MG ORAL TABS 5020598 AZITHROMYCI N Inactive SYMBICORT 160-4.5 MCG/ACT AERO 2 puffs BID SYMBICORT 160- 4.5 MCG/ACT AERO BUDESONIDE-FORMOTEROL FUMARATE Inactive ALBUTEROL SULFATE 0.083 % NEBU SOLN one vial per nebul izer every 4-6 hours as needed ALBUTEROL SULFATE 0.083 % NEBU SOLN 99945 8 ALBUTEROL SULFATE Inactive NEBULIZER MISC use as directed NEBULIZER MISC NEBULIZERS Inactive TESSALON PERLES 100 MG CAP 1 tablet by mouth 3 times daily 07/07 TESSALON PERLES 100 MG CAP 561994 BENZONATATE Inact jairo CYCLOBENZAPRINE HCL 10 MG TABS Take 1 tab TID PRN for muscle pain CYCLOBENZAPRINE HCL 10 MG TABS 367865 CYCLOBENZAPRINE HCL Inactive AUGMENTIN 875-125 MG TAB 1 po BID x 10 days AUGMENTIN 875- 125 MG TAB 033309 AMOXICILLIN-POT CLAVULANATE Inactive BACTROBAN 2 % CREAM Apply to affected area BID for up to 10 days BACTROBAN 2 % CREAM 673266 MUPIROCIN CALCIUM Inactive AMOXICILLIN 500 MG CAPS 2 po BID x 10 days AMOXICILLIN 500 MG CAPS 687554 AMOXICILLIN Inactive AZITHROMYCIN 250 MG TABS take 2 po today then take 1 po days 2-5 AZITHROMYCIN 250 MG TABS 8123107 AZITHROMYCIN Inactiv e LEVAQUIN 500 MG TABS 1 pill by mouth daily LEVAQUIN 500 MG TABS 869160 LEVOFLOXACIN Inactive AUGMENTIN 875-125 MG TABS 1 pill by mouth twice daily AUGMENTIN 875-125 MG TABS 449029 AMOXICILLIN-POT CLAVULANATE Inacti ve AUGMENTIN 875-125 MG TAB 1 po BID x 10 days AUGMENTIN 875- 125 MG TAB 542167 AMOXICILLIN-POT CLAVULANATE Inactive PREDNISONE 20 MG TAB take 3 tabs daily for 3 days , 2 tabs daily for 3 days, 1 tab daily for 3 days, 1/2 tab daily for 3 days PREDNISONE 20 MG TAB 322945 PREDNISONE Inactive CIPRO 500 MG TAB 1 tablet by mouth twice daily CIPRO 500 MG TAB 993396 CIPROFLOXACIN HCL Inactive Vital Signs Date Name [...] 5.8 % 4.3-6.0 cholesterol, serum 200 mg/dL 767-626 9019/07/22 triglyceride, serum, fasting 56 mg/dL 30-200 HDL cholesterol, serum 80 mg/dL 32-96 LDL cholesterol, serum 109 mg/dL 0-130 albumin/creatinine ratio, urine < 30 mg/g mg/g{creat} 0-2 9 TSH 1.16 m[iU]/mL 0.36-3.74 sodium, serum 142 mmol/L 668-440 5762/07/22 carbon dioxide, venous blood 33.1 mmol/L 21.0-32 [...] 0-19 Encounters Code Encounter Date Provider Facility CPT-99353 Level 4 Est. Patient 12:31:54 CDT Bertrand marquez [facility] CPT-48705 Level 3 Est. Patient 11:27:00 PLAYER DEVELOPMENT MANAGER Ike Dleuna MD [facility] CPT-56226 Level 3 Est. Patient 08:50:57 PLAYER DEVELOPMENT MANAGER Dangelo SET UP MOLD TECHNICIAN [facility] CPT-89511 Level 3 Est. Patient 10:04:13 CDT Bertrand marquez [facility] CPT-39267 Level 4 Est. Patient 16:02:10 PLAYER DEVELOPMENT MANAGER Dangelo SET UP MOLD TECHNICIAN [facility] CPT-63955 Level 3 Est. Patient 13:04:54 PLAYER DEVELOPMENT MANAGER Dangelo BARAJAS [facility] CPT-51382 Level 3 Est. Patient 12:56:37 CDT Bertrand marquez [facility] CPT-05367 Level 3 Est. Patient 19:12:03 CDT Yoli tolbert MD [facility] CPT-45734 Level 3 Est. Patient 14:36:01 CDT Yoli tolbert MD [facility] CPT-60609 Level 2 Est. Patient 08:00:22 CDT Jcarlos dc MD [facility]-23863 Level 3 Est. Patient 19:06:55 CDT Bertrand marquez [facility] CPT-39848 Level 3 Est. Patient 10:08:23 PLAYER DEVELOPMENT MANAGER Bertrand marquez [facility] CPT-51490 Level 3 Est. Patient 16:37:54 PLAYER DEVELOPMENT MANAGER Bertrand marquez [facility] CPT-77512 Level 3 Est. Patient 11:31:59 PLAYER DEVELOPMENT MANAGER Bertrand marquez [facility] CPT-43014 Level 3 Est. Patient 10:20:08 CDT Adolfo villasenor [facility] CPT-23106 Level 3 Est. Patient 13:45:20 CDT Sanket buckley [facility] CPT-48548 Level 3 Est. Patient 12:51:06 CDT Adolfo villasenor [facility] CPT-88819 Level 3 Est. Patient 11:22:51 PLAYER DEVELOPMENT MANAGER Yoli tolbert MD [facility] CPT-43855 Level 3 Est. Patient 13:33:19 CDT Bertrand marquez [facility] Procedures Code Procedure Name Date Entry Date Standard Desc ription CPT-95520 Wound Culture - LAB USE ONLY 15:45:25 CDT 2 CPT-63875 Venipuncture Draw Fee 10:23:01 CDT CPT-J0696 Rocephin 1000 mg (Ceftriaxone) 16:20:30 PLAYER DEVELOPMENT MANAGER CPT-93105 Abx/Therapy Injection 16:20:29 PLAYER DEVELOPMENT MANAGER CPT-J0696 Rocephin 1gm Inj Solr 15:51:59 PLAYER DEVELOPMENT MANAGER CPT-50592 Chest 2V Frontal and Lat 15:20:28 PLAYER DEVELOPMENT MANAGER 07/22 CPT-43684 Breathing Tx 14:51:55 PLAYER DEVELOPMENT MANAGER CPT-37798 Breathing Tx 09:57:16 PLAYER DEVELOPMENT MANAGER CPT-50038 Knee comp 4/> V 11:58:06 PLAYER DEVELOPMENT MANAGER
--- OUTSIDE RECORDS SUMMARY | 2019-11-13 10:31 | XMS REPORT | Clinical Summary ---
Author Author Admin, Enrique Adamson Organization [employer] Address Unknown Phone Unavailable Allergies, Adverse Reactions, [...] NDC Status Provider Patient Instruction VITAMIN D3 03767 UNIT CAPS 1 pill Week x 4 months for vitamin D deficiency/osteoporosis CHOLECALCIFEROL 94138361256 Active Darlyn Monzon Active BENZONATATE 200 MG ORAL CAPS 1 three times a day as needed for c ough BENZONATATE 04586237802 Active Ike Deluna MD Acti ve ZITHROMAX Z-MARTIN 250 MG TABS 2 today and then 1 daily for 4 days 201 12/01/06 AZITHROMYCIN 76769502741 Active Ike Deluna MD Active ADDERALL 10 MG ORAL TABS 1 tab twice daily AMPHETAMINE-DEXTROAMPHETAMINE 74105282536 Active Ike Deluna MD Active BACTROBAN 2 % CREAM Apply to affected area BID for up to 10 days MUPIROCIN CALCIUM 58256258551 No Longer Active Ike Deluna MD Active CIPRO 500 MG TAB 1 tablet by mouth twice daily CIPROFLOXACIN HCL 99995282975 No Longer Active Adriana Bender LPN Active AUGMENTIN 875-125 MG TAB 1 po BID x 10 days AMOXICILLIN- POT CLAVULANATE 74905740150 No Longer Active Adriana Bender LPN Active MODAFINIL 200 MG ORAL TABS Take 1/2 tab po in the am and 1/2 tab po at noon MODAFINIL 17208554758 Active Bertrand Patel DO Ac tive CYCLOBENZAPRINE HCL 10 MG TABS Take 1 tab TID PRN for muscle pain CYCLOBENZAPRINE HCL 56151242628 No Longer Active Bertrand Patel DO Ac tive TESSALON PERLES 100 MG CAP 1 tablet by mouth 3 times daily 07/07 BENZONATATE 85367853329 No Longer Active Bertrand Patel DO Ac tive NEBULIZER MISC use as directed NEBULIZERS 805040 78245 No Longer Active Bertrand Patel DO Active ALBUTEROL SULFATE 0.083 % NEBU SOLCammy one vial per nebul izer every 4-6 hours as needed ALBUTEROL SULFATE 41141416022 No Longer Active Bertrand Patel DO Active SYMBICORT 160-4.5 MCG/ACT AERO 2 puffs BID BUDESONIDE- FORMOTEROL FUMARATE 64103572970 No Longer Active Bertrand Patel DO Ac tive PREDNISONE 20 MG TAB take 3 tabs daily for 3 days , 2 tabs daily for 3 days, 1 tab daily for 3 days, 1/2 tab daily for 3 days P REDNISONE 96047134386 No Longer Active Silvia Arnold APRN Active AZITHROMYCIN 250 MG ORAL TABS Take 2 tabs po today then 1 ta b po daily AZITHROMYCIN 97481984365 No Longer Active Silvia Jorge leslye UPHOLSTERY MECHANIC Active AUGMENTIN 875-125 MG TAB 1 po BID x 10 days AMOXICILLIN- POT CLAVULANATE 62814335893 No Longer Active Adriana Bender LPN Active CHEWABLE CALCIUM 500-200-40 MG-UNT-MCG ORAL CHEW 1 chew tab bid 201 11/03/03 CALCIUM-VITAMIN D-VITAMIN K 38606888960 Active Silvia Arnold APRN Active EQ COMPLETE MULTIVIT ADULT 50+ ORAL TABS 1 tab po bid MULTIPLE VITAMINS-MINERALS 28351537069 Active Silvia Arnold APRN Act jairo HYDROCODONE-ACETAMINOPHEN 7.5-325 MG TABS TAKE ONE TAB EVERY 6 HOURS BY MOUTH NEEDED FOR PAIN HYDROCODONE-ACETAMINOPHEN 65460060053 Acti ve Bertrand Patel DO Active LORTAB 7.5-500 MG TABS take one po Q6 hours HYDROCODONE-ACETAMINOPHEN No Longer Active Nirmal Robbins RN Active [facility] MELATONIN 5-10 MG CR-TABS Take one by mouth daily at bedtime MELATONIN-PYRIDOXINE 25041132258 No Longer Active Bertrand Patel DO Active VITAMIN E 200 UNIT CAPS 1 cap po qd VITAMIN E 316 69491632 No Longer Active Bertrand Patel DO Active B-12 1000 MCG CAPS 1 tab daily CYANOCOBALAMIN 31 714266122 No Longer Active Bertrand Patel DO Active METFORMIN HCL 500 MG TABS 1 bid METFORMIN HCL 15528067779 No Longer Active Bertrand Patel DO Active FUROSEMIDE 20 MG TABS 1 pill by mouth daily if needed for edema FUROSEMIDE 06424002923 No Longer Active Bertrand Patel DO Act jairo PRAVASTATIN SODIUM 20 MG TABS 1 tablet by mouth daily at bedtime PRAVASTATIN SODIUM 16472629496 No Longer Active Bertrand Patel DO Active AUGMENTIN 875-125 MG TABS 1 pill by mouth twice daily AMOXICILLIN-POT CLAVULANATE 44727003659 No Longer Active Yoli Mercado MD PhD Active LEVAQUIN 500 MG TABS 1 pill by mouth daily LEVO FLOXACIN 90668274616 No Longer Active Yoli Mercado MD PhD Active AMLODIPINE BESYLATE 5 MG TABS 1 tablet by mouth daily for bl ood pressure AMLODIPINE BESYLATE 11356297786 Active Darlyn Monzon Active MICARDIS 80 MG TABS 1 tablet daily for blood pressure TELMISARTAN 28674147983 Active Darlyn Monzon Active MICARDIS HCT 80-12.5 MG TABS 1 qd TELMISARTA N-HCTZ 72238559515 No Longer Active Bertrand Patel DO Active CINNAMON ALPHA LIPOIC AC CMPLX CAPS by mouth twice a d ay in AM by mouth twice a day in PM ALPHA LIPOIC [id number] CAPS 890924 59468 No Longer Active Bertrand Patel DO Active AZITHROMYCIN 500 MG SOLR 1 po q day AZITHROMYCI N 25647143350 No Longer Active Bertrand Patel DO Active CYMBALTA 30 MG CPEP 1 cap by mouth daily DULOXE CATHI HCL 26503405511 No Longer Active Bertrand Patel DO Active CYMBALTA 60 MG CPEP 1 cap by mouth daily DULOXE CATHI HCL 49311936590 Active Darlyn Monzon Active WELLBUTRIN 75 MG TABS 2 times daily BUPROPION H CL 96076883620 No Longer Active Bertrand W Jorge DO Active PROAIR HFA 108 (90 BASE) MCG/ACT AERS take one to two puffs po Q4-6 hour prn cough and shortness of breath ALBUTEROL SULFATE 6549047278 2 Active Silvia Arnold UPHOLSTERY MECHANIC Active AZITHROMYCIN 250 MG TABS take 2 po today then take 1 po days 2-5 AZITHROMYCIN 66537364578 No Longer Active Adolfo OSORIO Active PERMETHRIN 5 % CREA apply neck to toes tonight a nd then rinse off in morning. repeat at 7 days PERMETHRIN 93988427641 No Longer Active Adolfo OSORIO Active AMOXICILLIN 500 MG CAPS 2 po BID x 10 days AMOX ICILLIN 11525734122 No Longer Active Yoli Mercado MD PhD Active ALPRAZOLAM 0.5 MG TAB 1 tab by mouth tid ALPRAZOL AM 35879031966 Active Nitza Mullins K [employer]AL Active INSUPEN ULTRAFIN 31G X 6 MM MISC USE DIRECTED 03/04 INSULIN PEN NEEDLE 49048913563 No Longer Active Bertrand Patel DO Active TRANSDERM-SCOP 1.5 MG PT72 1 patch applied behind ear q 3 day 20 04/13/28 SCOPOLAMINE BASE 93939164381 No Longer Active Bertrand Patel DO Active MACRODANTIN 100 MG CAPS one p.o. b.i.d. x2 weeks 03/04 NITROFURANTOIN MACROCRYSTAL 03683882319 No Longer Active Bertrand Patel DO Active MACRODANTIN 100 MG CAPS one p.o. b.i.d. x2 weeks 03/04 MACRODANTIN 100 MG CAPS 0443985 NITROFURANTOIN MACROCRYSTAL Inactive TRANSDERM-SCOP 1.5 MG PT72 [...] at 7 days PERMETHRIN 5 % CREA 362501 PERMETHRIN Inactive WELLBUTRIN 75 MG TABS 2 times daily WELLBUTRIN 75 MG TABS 881805 BUPROPION HCL Inactive CYMBALTA 30 MG CPEP 1 cap by mouth daily CYMBALTA 30 MG CPEP 650730 DULOXETINE HCL Inactive AZITHROMYCIN 500 MG SOLR 1 po q day ALTA THROMYCIN 500 MG SOLR 48564349698 AZITHROMYCIN Inactive CINNAMON ALPHA LIPOIC AC CMPLX CAPS by mouth twice a d ay in AM by mouth twice a day in PM CINNAMON ALPHA LIPOIC AC CMPLX CAPS ALPHA LIPOIC [id number] CAPS Inactive MICARDIS HCT 80-12.5 MG TABS 1 qd MICARDI S HCT 80-12.5 MG TABS 462224 TELMISARTAN-HCTZ Inactive PRAVASTATIN SODIUM 20 MG TABS 1 tablet by mouth daily at bedtime PRAVASTATIN SODIUM 20 MG TABS 265905 PRAVASTATIN SODIUM Inactive FUROSEMIDE 20 MG TABS 1 pill by mouth daily if needed for edema FUROSEMIDE 20 MG TABS 483372 FUROSEMIDE Inactive METFORMIN HCL 500 MG TABS 1 bid METFORMIN HCL 500 MG TABS 285231 METFORMIN HCL Inactive B-12 1000 MCG CAPS 1 tab daily B-12 1000 MCG CAP S CYANOCOBALAMIN Inactive VITAMIN E 200 UNIT CAPS 1 cap po qd VITAMIN E 2 00 UNIT CAPS 8993767 VITAMIN E Inactive [facility] MELATONIN 5-10 MG CR-TABS Take one by mouth daily at bedtime [facility] MELATONIN 5-10 MG CR-TABS MELATONIN-PYRIDOXI NE Inactive LORTAB 7.5-500 MG TABS take one po Q6 hours LORTAB 7.5-500 MG TABS 134072 HYDROCODONE-ACETAMINOPHEN Inactive AZITHROMYCIN 250 MG ORAL TABS Take 2 tabs po today then 1 ta b po daily AZITHROMYCIN 250 MG ORAL TABS 229139 AZITHROMYCI N Inactive SYMBICORT 160-4.5 MCG/ACT AERO 2 puffs BID SYMBICORT 160- 4.5 MCG/ACT AERO BUDESONIDE-FORMOTEROL FUMARATE Inactive ALBUTEROL SULFATE 0.083 % NEBU SOLN one vial per nebul izer every 4-6 hours as needed ALBUTEROL SULFATE 0.083 % NEBU SOLN 74335 8 ALBUTEROL SULFATE Inactive NEBULIZER MISC use as directed NEBULIZER MISC NEBULIZERS Inactive TESSALON PERLES 100 MG CAP 1 tablet by mouth 3 times daily 07/07 TESSALON PERLES 100 MG CAP 937723 BENZONATATE Inact jairo CYCLOBENZAPRINE HCL 10 MG TABS Take 1 tab TID PRN for muscle pain CYCLOBENZAPRINE HCL 10 MG TABS 787984 CYCLOBENZAPRINE HCL Inactive AUGMENTIN 875-125 MG TAB 1 po BID x 10 days AUGMENTIN 875- 125 MG TAB 223656 AMOXICILLIN-POT CLAVULANATE Inactive BACTROBAN 2 % CREAM Apply to affected area BID for up to 10 days BACTROBAN 2 % CREAM 992882 MUPIROCIN CALCIUM Inactive AMOXICILLIN 500 MG CAPS 2 po BID x 10 days AMOXICILLIN 500 MG CAPS 389237 AMOXICILLIN Inactive AZITHROMYCIN 250 MG TABS take 2 po today then take 1 po days 2-5 AZITHROMYCIN 250 MG TABS 187949 AZITHROMYCIN Inactiv e LEVAQUIN 500 MG TABS 1 pill by mouth daily LEVAQUIN 500 MG TABS 332805 LEVOFLOXACIN Inactive AUGMENTIN 875-125 MG TABS 1 pill by mouth twice daily AUGMENTIN 875-125 MG TABS 963772 AMOXICILLIN-POT CLAVULANATE Inacti ve AUGMENTIN 875-125 MG TAB 1 po BID x 10 days AUGMENTIN 875- 125 MG TAB 132746 AMOXICILLIN-POT CLAVULANATE Inactive PREDNISONE 20 MG TAB take 3 tabs daily for 3 days , 2 tabs daily for 3 days, 1 tab daily for 3 days, 1/2 tab daily for 3 days PREDNISONE 20 MG TAB 457529 PREDNISONE Inactive CIPRO 500 MG TAB 1 tablet by mouth twice daily CIPRO 500 MG TAB 803288 CIPROFLOXACIN HCL Inactive Vital Signs Date Name [...] 0-19 Encounters Code Encounter Date Provider Facility CPT-33705 Level 4 Est. Patient 12:31:54 CDT Bertrand marquez [facility] CPT-11067 Level 3 Est. Patient 11:27:00 WOOD WINDOW AND DOOR CRAFTSMAN Ike Deluna MD [facility]-61777 Level 3 Est. Patient 08:50:57 WOOD WINDOW AND DOOR CRAFTSMAN Dangelo UPHOLSTERY MECHANIC [facility]-92172 Level 3 Est. Patient 10:04:13 CDT Bertrand marquez [facility] CPT-37099 Level 4 Est. Patient 16:02:10 WOOD WINDOW AND DOOR CRAFTSMAN Dangelo UPHOLSTERY MECHANIC [facility]-21550 Level 3 Est. Patient 13:04:54 WOOD WINDOW AND DOOR CRAFTSMAN Dangelo [facility]-85081 Level 3 Est. Patient 12:56:37 CDT Bertrand marquez [facility] CPT-84974 Level 3 Est. Patient 19:12:03 CDT Yoli tolbert MD [facility] CPT-06749 Level 3 Est. Patient 14:36:01 CDT Yoli tolbert MD [facility] CPT-65831 Level 2 Est. Patient 08:00:22 CDT Jcarlos dc MD [facility]-56213 Level 3 Est. Patient 19:06:55 CDT Bertrand marquez [facility] CPT-79156 Level 3 Est. Patient 10:08:23 WOOD WINDOW AND DOOR CRAFTSMAN Bertrand marquez [facility]-28468 Level 3 Est. Patient 16:37:54 WOOD WINDOW AND DOOR CRAFTSMAN Bertrand marquez [facility] CPT-34018 Level 3 Est. Patient 11:31:59 WOOD WINDOW AND DOOR CRAFTSMAN Bertrand marquez [facility] CPT-85258 Level 3 Est. Patient 10:20:08 CDT Gennadot Bertrand jacklyn [facility] CPT-54208 Level 3 Est. Patient 13:45:20 CDT Sanket Pham ina [facility] CPT-38837 Level 3 Est. Patient 12:51:06 CDT Gennadot Porfirioridge halljacklyn [facility] CPT-10618 Level 3 Est. Patient 11:22:51 WOOD WINDOW AND DOOR CRAFTSMAN Yoli tolbert MD PhD [facility] CPT-71015 Level 3 Est. Patient 13:33:19 CDT Bertrand marquez [facility] Procedures Code Procedure Name Date Entry Date Standard Desc ription CPT-64581 Wound Culture - LAB USE ONLY 15:45:25 CDT 2 CPT-83138 Venipuncture Draw Fee 10:23:01 CDT CPT-J0696 Rocephin 1000 mg (Ceftriaxone) 16:20:30 WOOD WINDOW AND DOOR CRAFTSMAN CPT-65263 Abx/Therapy Injection 16:20:29 WOOD WINDOW AND DOOR CRAFTSMAN CPT-J0696 Rocephin 1gm Inj Solr 15:51:59 WOOD WINDOW AND DOOR CRAFTSMAN CPT-91816 Chest 2V Frontal and Lat 15:20:28 WOOD WINDOW AND DOOR CRAFTSMAN 07/22 CPT-21223 Breathing Tx 14:51:55 WOOD WINDOW AND DOOR CRAFTSMAN CPT-10007 Breathing Tx 09:57:16 WOOD WINDOW AND DOOR CRAFTSMAN CPT-92204 Knee comp 4/> V 11:58:06 WOOD WINDOW AND DOOR CRAFTSMAN
--- OUTSIDE RECORDS SUMMARY | 2019-11-13 10:31 | XMS REPORT | Clinical Summary ---
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 sinusitis, unspecified Fatigue 780.79 Active Silvia [...] Yoli Mercado MD PhD Pharyngitis-Acute ICD-462 Inactive Bertradn Redmond DO Polyuria ICD-788.42 Inactive Yoli Mercado MD P hD Foreign body, ear ICD-931 Inactive Yoli salazar MD PhD Medication List Medication Instructions Start Date Stop Date Generic Name NDC Status Provider Patient Instruction MODAFINIL 100 MG ORAL TABS 1 tablet morning and noon for narcole psy MODAFINIL 54229377480 Active Bertrand Patel DO Active CYCLOBENZAPRINE HCL 10 MG TABS Take 1 tab TID PRN for muscle pain CYCLOBENZAPRINE HCL 19110155555 No Longer Active Bertrand Patel DO Ac tive TESSALON PERLES 100 MG CAP 1 tablet by mouth 3 times daily 07/07 BENZONATATE 89430103399 No Longer Active Bertrand Patel DO Ac tive NEBULIZER MISC use as directed NEBULIZERS 188117 28493 No Longer Active Bertrand Patel DO Active ALBUTEROL SULFATE 0.083 % NEBU SOLN one vial per nebul izer every 4-6 hours as needed ALBUTEROL SULFATE 52134562667 No Longer Active Bertrand Patel DO Active SYMBICORT 160-4.5 MCG/ACT AERO 2 puffs BID BUDESONIDE- FORMOTEROL FUMARATE 48702425409 No Longer Active Bertrand Patel DO Ac tive PREDNISONE 20 MG TAB take 3 tabs daily for 3 days , 2 tabs daily for 3 days, 1 tab daily for 3 days, 1/2 tab daily for 3 days P REDNISONE 87911412944 No Longer Active Silvia Arnold APRN Active AZITHROMYCIN 250 MG ORAL TABS Take 2 tabs po today then 1 ta b po daily AZITHROMYCIN 21998257810 No Longer Active Silvia Jorge gavin FULL TIME STAFF INTERPRETER Active AUGMENTIN 875-125 MG TAB 1 po BID x 10 days AMOXICILLIN- POT CLAVULANATE 46247245796 No Longer Active Adriana Bender LPN Active CHEWABLE CALCIUM 500-200-40 MG-UNT-MCG ORAL CHEW 1 chew tab bid 201 11/03/03 CALCIUM-VITAMIN D-VITAMIN K 16745693366 Active Silvia Arnold APRN Active EQ COMPLETE MULTIVIT ADULT 50+ ORAL TABS 1 tab po bid MULTIPLE VITAMINS-MINERALS 27083775575 Active Silvia Arnold APRN Act jairo HYDROCODONE-ACETAMINOPHEN 7.5-325 MG TABS TAKE ONE TAB EVERY 6 HOURS BY MOUTH NEEDED FOR PAIN HYDROCODONE-ACETAMINOPHEN 35727347294 Acti ve Bertrand Patel DO Active LORTAB 7.5-500 MG TABS take one po Q6 hours HYDROCODONE-ACETAMINOPHEN No Longer Active Nirmal Robbins RN Active [facility] MELATONIN 5-10 MG CR-TABS Take one by mouth daily at bedtime MELATONIN-PYRIDOXINE 10636392308 No Longer Active Bertrand Patel DO Active VITAMIN E 200 UNIT CAPS 1 cap po qd VITAMIN E 316 88966357 No Longer Active Bertrand Patel DO Active B-12 1000 MCG CAPS 1 tab daily CYANOCOBALAMIN 31 449213340 No Longer Active Bertrand Patel DO Active METFORMIN HCL 500 MG TABS 1 bid METFORMIN HCL 91703856597 No Longer Active Bertrand Patel DO Active FUROSEMIDE 20 MG TABS 1 pill by mouth daily if needed for edema FUROSEMIDE 05823734474 No Longer Active Bertrand Patel DO Act jairo PRAVASTATIN SODIUM 20 MG TABS 1 tablet by mouth daily at bedtime PRAVASTATIN SODIUM 83791783782 No Longer Active Bertrand Patel DO Active AUGMENTIN 875-125 MG TABS 1 pill by mouth twice daily AMOXICILLIN-POT CLAVULANATE 05940436733 No Longer Active Yoli Mercado MD PhD Active LEVAQUIN 500 MG TABS 1 pill by mouth daily LEVO FLOXACIN 05209021078 No Longer Active Yoli Mercado MD PhD Active AMLODIPINE BESYLATE 5 MG TABS 1 tablet by mouth daily for bl ood pressure AMLODIPINE BESYLATE 13525961276 Active Nitza Dorman PT,RMA Active MICARDIS 80 MG TABS 1 tablet daily for blood pressure TELMISARTAN 47381865373 Active Nitza Mullins RPT,RMA Active MICARDIS HCT 80-12.5 MG TABS 1 qd TELMISARTA N-HCTZ 47823722155 No Longer Active Bertrand Patel DO Active CINNAMON ALPHA LIPOIC AC CMPLX CAPS by mouth twice a d ay in AM by mouth twice a day in PM ALPHA LIPOIC AYOM-CL-DVEGOAAL CAPS 084544 59113 No Longer Active Bertrand Patel DO Active AZITHROMYCIN 500 MG SOLR 1 po q day AZITHROMYCI N 45399095091 No Longer Active Bertrand Patel DO Active CYMBALTA 30 MG CPEP 1 cap by mouth daily DULOXE CATHI HCL 86329555447 No Longer Active Bertrand Patel DO Active CYMBALTA 60 MG CPEP 1 cap by mouth daily DULOXE CATHI HCL 76223909148 Active Nitza Mullins RPT,RMA Active WELLBUTRIN 75 MG TABS 2 times daily BUPROPION H CL 05278875910 No Longer Active Bertrand Patel DO Active PROAIR HFA 108 (90 BASE) MCG/ACT AERS take one to two puffs po Q4-6 hour prn cough and shortness of breath ALBUTEROL SULFATE 6991304401 2 Active Siliva Arnold FULL TIME STAFF INTERPRETER Active AZITHROMYCIN 250 MG TABS take 2 po today then take 1 po days 2-5 AZITHROMYCIN 52132919193 No Longer Active Adolfo OSORIO Active PERMETHRIN 5 % CREA apply neck to toes tonight a nd then rinse off in morning. repeat at 7 days PERMETHRIN 56577798551 No Longer Active Adolfo OSORIO Active AMOXICILLIN 500 MG CAPS 2 po BID x 10 days AMOX ICILLIN 70752577507 No Longer Active Yoli Mercado MD PhD Active ALPRAZOLAM 0.5 MG TAB 1 tab by mouth tid ALPRAZOL AM 81685798572 Active Nitza Mullins RPT,RMA Active INSUPEN ULTRAFIN 31G X 6 MM MISC USE DIRECTED 03/04 INSULIN PEN NEEDLE 25139022574 No Longer Active Bertrand Patel DO Active TRANSDERM-SCOP 1.5 MG PT72 1 patch applied behind ear q 3 day 20 04/13/28 SCOPOLAMINE BASE 93204492135 No Longer Active Bertrand Patel DO Active MACRODANTIN 100 MG CAPS one p.o. b.i.d. x2 weeks 03/04 NITROFURANTOIN MACROCRYSTAL 61158393219 No Longer Active Bertrand Patel DO Active MACRODANTIN 100 MG CAPS one p.o. b.i.d. x2 weeks 03/04 MACRODANTIN 100 MG CAPS 2306960 NITROFURANTOIN MACROCRYSTAL Inactive TRANSDERM-SCOP 1.5 MG PT72 [...] at 7 days PERMETHRIN 5 % CREA 443425 PERMETHRIN Inactive WELLBUTRIN 75 MG TABS 2 times daily WELLBUTRIN 75 MG TABS BUPROPION HCL Inactive CYMBALTA 30 MG CPEP 1 cap by mouth daily CYMBALTA 30 MG CPEP 807844 DULOXETINE HCL Inactive AZITHROMYCIN 500 MG SOLR 1 po q day ALTA THROMYCIN 500 MG SOLR 33481069220 AZITHROMYCIN Inactive CINNAMON ALPHA LIPOIC AC CMPLX CAPS by mouth twice a d ay in AM by mouth twice a day in PM CINNAMON ALPHA LIPOIC AC CMPLX CAPS ALPHA LIPOIC [id number] CAPS Inactive MICARDIS HCT 80-12.5 MG TABS 1 qd MICARDI S HCT 80-12.5 MG TABS 324389 TELMISARTAN-HCTZ Inactive PRAVASTATIN SODIUM 20 MG TABS 1 tablet by mouth daily at bedtime PRAVASTATIN SODIUM 20 MG TABS 677025 PRAVASTATIN SODIUM Inactive FUROSEMIDE 20 MG TABS 1 pill by mouth daily if needed for edema FUROSEMIDE 20 MG TABS 632784 FUROSEMIDE Inactive METFORMIN HCL 500 MG TABS 1 bid METFORMIN HCL 500 MG TABS 689310 METFORMIN HCL Inactive B-12 1000 MCG CAPS 1 tab daily B-12 1000 MCG CAP S CYANOCOBALAMIN Inactive VITAMIN E 200 UNIT CAPS 1 cap po qd VITAMIN E 2 00 UNIT CAPS 7895428 VITAMIN E Inactive [facility] MELATONIN 5-10 MG CR-TABS Take one by mouth daily at bedtime [facility] MELATONIN 5-10 MG CR-TABS MELATONIN-PYRIDOXI NE Inactive LORTAB 7.5-500 MG TABS take one po Q6 hours LORTAB 7.5-500 MG TABS HYDROCODONE-ACETAMINOPHEN Inactive AZITHROMYCIN 250 MG ORAL TABS Take 2 tabs po today then 1 ta b po daily AZITHROMYCIN 250 MG ORAL TABS 1284675 AZITHROMYCI N Inactive SYMBICORT 160-4.5 MCG/ACT AERO 2 puffs BID SYMBICORT 160- 4.5 MCG/ACT AERO BUDESONIDE-FORMOTEROL FUMARATE Inactive ALBUTEROL SULFATE 0.083 % NEBU SOLN one vial per nebul izer every 4-6 hours as needed ALBUTEROL SULFATE 0.083 % NEBU SOLN 15999 8 ALBUTEROL SULFATE Inactive NEBULIZER MISC use as directed NEBULIZER MISC NEBULIZERS Inactive TESSALON PERLES 100 MG CAP 1 tablet by mouth 3 times daily 07/07 TESSALON PERLES 100 MG CAP 389539 BENZONATATE Inact jairo CYCLOBENZAPRINE HCL 10 MG TABS Take 1 tab TID PRN for muscle pain CYCLOBENZAPRINE HCL 10 MG TABS 714486 CYCLOBENZAPRINE HCL Inactive AMOXICILLIN 500 MG CAPS 2 po BID x 10 days AMOXICILLIN 500 MG CAPS 039201 AMOXICILLIN Inactive AZITHROMYCIN 250 MG TABS take 2 po today then take 1 po days 2-5 AZITHROMYCIN 250 MG TABS 6586036 AZITHROMYCIN Inactiv e LEVAQUIN 500 MG TABS 1 pill by mouth daily LEVAQUIN 500 MG TABS 258130 LEVOFLOXACIN Inactive AUGMENTIN 875-125 MG TABS 1 pill by mouth twice daily AUGMENTIN 875-125 MG TABS 289480 AMOXICILLIN-POT CLAVULANATE Inacti ve AUGMENTIN 875-125 MG TAB 1 po BID x 10 days AUGMENTIN 875- 125 MG TAB 059969 AMOXICILLIN-POT CLAVULANATE Inactive PREDNISONE 20 MG TAB take 3 tabs daily for 3 days , 2 tabs daily for 3 days, 1 tab daily for 3 days, 1/2 tab daily for 3 days PREDNISONE 20 MG TAB 725313 PREDNISONE Inactive Vital Signs Date Name Value [...] 5.8 % 4.3-6.0 cholesterol, serum 200 mg/dL 585-800 3041/07/22 triglyceride, serum, fasting 56 mg/dL 30-200 HDL cholesterol, serum 80 mg/dL 32-96 LDL cholesterol, serum 109 mg/dL 0-130 albumin/creatinine ratio, urine < 30 mg/g mg/g{creat} 0-2 9 TSH 1.16 m[iU]/mL 0.36-3.74 sodium, serum 142 mmol/L 053-612 0139/07/22 carbon dioxide, venous blood 33.1 mmol/L 21.0-32 [...] Negative;Positive Encounters Code Encounter Date Provider Facility CPT-52671 Level 3 Est. Patient 10:04:13 CDT Bertrand marquez [facility] CPT-94643 Level 4 Est. Patient 16:02:10 VISUALLY IMPAIRED TEACHER Dangelo FULL TIME STAFF INTERPRETER [facility] CPT-23278 Level 3 Est. Patient 13:04:54 VISUALLY IMPAIRED TEACHER Dangelo FULL TIME STAFF INTERPRETER [facility] CPT-31352 Level 3 Est. Patient 12:56:37 CDT Bertrand marquez DO [facility] CPT-20200 Level 3 Est. Patient 19:12:03 CDT Yoli tolbert MD PhD [facility] CPT-67769 Level 3 Est. Patient 14:36:01 CDT Yoli tolbert MD PhD [facility] CPT-17950 Level 2 Est. Patient 08:00:22 CDT Jcarlos dc MD [facility] CPT-27289 Level 3 Est. Patient 19:06:55 CDT Bertrand marquez [facility] CPT-65473 Level 3 Est. Patient 10:08:23 VISUALLY IMPAIRED TEACHER Bertrand marquez [facility] CPT-10252 Level 3 Est. Patient 16:37:54 VISUALLY IMPAIRED TEACHER Bertrand marquez [facility] CPT-87917 Level 3 Est. Patient 11:31:59 VISUALLY IMPAIRED TEACHER Bertrand marquez [facility] CPT-34086 Level 3 Est. Patient 10:20:08 CDT Adolfo villasenor [facility] CPT-15805 Level 3 Est. Patient 13:45:20 CDT Sanket buckley [facility] CPT-80117 Level 3 Est. Patient 12:51:06 CDT Adolfo villasenor [facility] CPT-25406 Level 3 Est. Patient 11:22:51 VISUALLY IMPAIRED TEACHER Yoli tolbert MD [facility] CPT-74777 Level 3 Est. Patient 13:33:19 CDT Bertrand marquez [facility] Procedures Code Procedure Name Date Entry Date Standard Desc ription CPT-51433 Venipuncture Draw Fee 10:23:01 CDT CPT-J0696 Rocephin 1000 mg (Ceftriaxone) 16:20:30 VISUALLY IMPAIRED TEACHER CPT-25621 Abx/Therapy Injection 16:20:29 VISUALLY IMPAIRED TEACHER CPT-J0696 Rocephin 1gm Inj Solr 15:51:59 VISUALLY IMPAIRED TEACHER CPT-34538 Chest 2V Frontal and Lat 15:20:28 VISUALLY IMPAIRED TEACHER 07/22 CPT-55944 Breathing Tx 14:51:55 VISUALLY IMPAIRED TEACHER CPT-09659 Breathing Tx 09:57:16 VISUALLY IMPAIRED TEACHER CPT-95544 Knee comp 4/> V 11:58:06 VISUALLY IMPAIRED TEACHER
--- OUTSIDE RECORDS SUMMARY | 2019-11-13 10:31 | XMS REPORT | Clinical Summary ---
Author Author Admin, Enrique Adamson Organization [employer] Address Unknown Phone Unavailable Allergies, Adverse Reactions, [...] day as needed for c ough BENZONATATE 12349528845 Active Ike Deluna MD Acti ve ZITHROMAX Z-MARTIN 250 MG TABS 2 today and then 1 daily for 4 days 201 12/01/06 AZITHROMYCIN 78789598480 Active Ike Deluna MD Active ADDERALL 10 MG ORAL TABS 1 tab twice daily AMPHETAMINE-DEXTROAMPHETAMINE 26668815898 Active Ike Deluna MD Active BACTROBAN 2 % CREAM Apply to affected area BID for up to 10 days MUPIROCIN CALCIUM 99895574333 No Longer Active Ike Deluna MD Active CIPRO 500 MG TAB 1 tablet by mouth twice daily CIPROFLOXACIN HCL 05186752704 No Longer Active Adriana Bender LPN Active AUGMENTIN 875-125 MG TAB 1 po BID x 10 days AMOXICILLIN- POT CLAVULANATE 82542533765 No Longer Active Adriana Bender LPN Active MODAFINIL 200 MG ORAL TABS Take 1/2 tab po in the am and 1/2 tab po at noon MODAFINIL 86729907396 Active Darlyn vega CYCLOBENZAPRINE HCL 10 MG TABS Take 1 tab TID PRN for muscle pain CYCLOBENZAPRINE HCL 59696901566 No Longer Active Bertrand Patel DO Ac tive TESSALON PERLES 100 MG CAP 1 tablet by mouth 3 times daily 07/07 BENZONATATE 74419236649 No Longer Active Bertrand Patel DO Ac tive NEBULIZER MISC use as directed NEBULIZERS 443751 76740 No Longer Active Bertrand Patel DO Active ALBUTEROL SULFATE 0.083 % NEBU SOLKelvin one vial per nebul izer every 4-6 hours as needed ALBUTEROL SULFATE 60371686252 No Longer Active Bertrand Patel DO Active SYMBICORT 160-4.5 MCG/ACT AERO 2 puffs BID BUDESONIDE- FORMOTEROL FUMARATE 87966622621 No Longer Active Bertrand Patel DO Ac tive PREDNISONE 20 MG TAB take 3 tabs daily for 3 days , 2 tabs daily for 3 days, 1 tab daily for 3 days, 1/2 tab daily for 3 days P REDNISONE 50181892189 No Longer Active Silvia Arnold APRN Active AZITHROMYCIN 250 MG ORAL TABS Take 2 tabs po today then 1 ta b po daily AZITHROMYCIN 25055089615 No Longer Active Silvia gavin MACHINE VENEER REPAIRER Active AUGMENTIN 875-125 MG TAB 1 po BID x 10 days AMOXICILLIN- POT CLAVULANATE 05686068571 No Longer Active Adriana Bender LPN Active CHEWABLE CALCIUM 500-200-40 MG-UNT-MCG ORAL CHEW 1 chew tab bid 201 11/03/03 CALCIUM-VITAMIN D-VITAMIN K 73533663993 Active Silvia Arnold APRN Active EQ COMPLETE MULTIVIT ADULT 50+ ORAL TABS 1 tab po bid MULTIPLE VITAMINS-MINERALS 70603707222 Active Silvia Arnold APRN Act jairo HYDROCODONE-ACETAMINOPHEN 7.5-325 MG TABS TAKE ONE TAB EVERY 6 HOURS BY MOUTH NEEDED FOR PAIN HYDROCODONE-ACETAMINOPHEN 30100695328 Acti raheel العلي Active LORTAB 7.5-500 MG TABS take one po Q6 hours HYDROCODONE-ACETAMINOPHEN No Longer Active Nirmal Robbins RN Active [facility] MEL[facility] 5-10 MG CR-TABS Take one by mouth daily at bedtime MELATONIN-PYRIDOXINE 82646778573 No Longer Active Bertrand Patel DO Active VITAMIN E 200 UNIT CAPS 1 cap po qd VITAMIN E 316 11855634 No Longer Active Bertrand Patel DO Active B-12 1000 MCG CAPS 1 tab daily CYANOCOBALAMIN 31 023764866 No Longer Active Bertrand Patel DO Active METFORMIN HCL 500 MG TABS 1 bid METFORMIN HCL 32284559701 No Longer Active Bertrand Patel DO Active FUROSEMIDE 20 MG TABS 1 pill by mouth daily if needed for edema FUROSEMIDE 72968269347 No Longer Active Bertrand Patel DO Act jairo PRAVASTATIN SODIUM 20 MG TABS 1 tablet by mouth daily at bedtime PRAVASTATIN SODIUM 43818412332 No Longer Active Bertrand Patel DO Active AUGMENTIN 875-125 MG TABS 1 pill by mouth twice daily AMOXICILLIN-POT CLAVULANATE 96707922796 No Longer Active Yoli Mercado MD PhD Active LEVAQUIN 500 MG TABS 1 pill by mouth daily LEVO FLOXACIN 11968040090 No Longer Active Yoli Mercado MD PhD Active AMLODIPINE BESYLATE 5 MG TABS 1 tablet by mouth daily for bl ood pressure AMLODIPINE BESYLATE 99755204466 Active Darlyn Mckinnonmerman Active MICARDIS 80 MG TABS 1 tablet daily for blood pressure TELMISARTAN 34097782177 Active Darlyn Monzon Active MICARDIS HCT 80-12.5 MG TABS 1 qd TELMISARTA N-HCTZ 83958985603 No Longer Active Bertrand Patel DO Active CINNAMON ALPHA LIPOIC AC CMPLX CAPS by mouth twice a d ay in AM by mouth twice a day in PM ALPHA LIPOIC [id number] CAPS 194329 08866 No Longer Active Bertrand Patel DO Active AZITHROMYCIN 500 MG SOLR 1 po q day AZITHROMYCI N 65376401271 No Longer Active Bertrand Patel DO Active CYMBALTA 30 MG CPEP 1 cap by mouth daily DULOXE CATHI HCL 01352832352 No Longer Active Bertrand Patel DO Active CYMBALTA 60 MG CPEP 1 cap by mouth daily DULOXE CATHI HCL 11414322589 Active Keysha Jones MA Active WELLBUTRIN 75 MG TABS 2 times daily BUPROPION H CL 85841870512 No Longer Active Bertrand Patel DO Active PROAIR HFA 108 (90 BASE) MCG/ACT AERS take one to two puffs po Q4-6 hour prn cough and shortness of breath ALBUTEROL SULFATE 7828474435 2 Active Silvia Arnold APRN Active AZITHROMYCIN 250 MG TABS take 2 po today then take 1 po days 2-5 AZITHROMYCIN 53326335557 No Longer Active Adolfo OSORIO Active PERMETHRIN 5 % CREA apply neck to toes tonight a nd then rinse off in morning. repeat at 7 days PERMETHRIN 10787324192 No Longer Active Adolfo OSORIO Active AMOXICILLIN 500 MG CAPS 2 po BID x 10 days AMOX ICILLIN 29784349516 No Longer Active Yoli Mercado MD PhD Active ALPRAZOLAM 0.5 MG TAB 1 tab by mouth tid ALPRAZOL AM 79663357897 Active Nitza Mullins RPT,RMA Active INSUPEN ULTRAFIN 31G X 6 MM MISC USE DIRECTED 03/04 INSULIN PEN NEEDLE 62521012983 No Longer Active Bertrand Patel DO Active TRANSDERM-SCOP 1.5 MG PT72 1 patch applied behind ear q 3 day 20 04/13/28 SCOPOLAMINE BASE 73139132829 No Longer Active Bertrand Patel DO Active MACRODANTIN 100 MG CAPS one p.o. b.i.d. x2 weeks 03/04 NITROFURANTOIN MACROCRYSTAL 94540352285 No Longer Active Bertrand Patel DO Active MACRODANTIN 100 MG CAPS one p.o. b.i.d. x2 weeks 03/04 MACRODANTIN 100 MG CAPS 4362159 NITROFURANTOIN MACROCRYSTAL Inactive TRANSDERM-SCOP 1.5 MG PT72 [...] at 7 days PERMETHRIN 5 % CREA 619687 PERMETHRIN Inactive WELLBUTRIN 75 MG TABS 2 times daily WELLBUTRIN 75 MG TABS BUPROPION HCL Inactive CYMBALTA 30 MG CPEP 1 cap by mouth daily CYMBALTA 30 MG CPEP 417078 DULOXETINE HCL Inactive AZITHROMYCIN 500 MG SOLR 1 po q day ALTA THROMYCIN 500 MG SOLR 22927758936 AZITHROMYCIN Inactive CINNAMON ALPHA LIPOIC AC CMPLX CAPS by mouth twice a d ay in AM by mouth twice a day in PM CINNAMON ALPHA LIPOIC AC CMPLX CAPS ALPHA LIPOIC [id number] CAPS Inactive MICARDIS HCT 80-12.5 MG TABS 1 qd MICARDI S HCT 80-12.5 MG TABS 913714 TELMISARTAN-HCTZ Inactive PRAVASTATIN SODIUM 20 MG TABS 1 tablet by mouth daily at bedtime PRAVASTATIN SODIUM 20 MG TABS 344177 PRAVASTATIN SODIUM Inactive FUROSEMIDE 20 MG TABS 1 pill by mouth daily if needed for edema FUROSEMIDE 20 MG TABS 673227 FUROSEMIDE Inactive METFORMIN HCL 500 MG TABS 1 bid METFORMIN HCL 500 MG TABS 788291 METFORMIN HCL Inactive B-12 1000 MCG CAPS 1 tab daily B-12 1000 MCG CAP S CYANOCOBALAMIN Inactive VITAMIN E 200 UNIT CAPS 1 cap po qd VITAMIN E 2 00 UNIT CAPS 3840489 VITAMIN E Inactive [facility] MELATONIN 5-10 MG CR-TABS Take one by mouth daily at bedtime [facility] MELATONIN 5-10 MG CR-TABS MELATONIN-PYRIDOXI NE Inactive LORTAB 7.5-500 MG TABS take one po Q6 hours LORTAB 7.5-500 MG TABS HYDROCODONE-ACETAMINOPHEN Inactive AZITHROMYCIN 250 MG ORAL TABS Take 2 tabs po today then 1 ta b po daily AZITHROMYCIN 250 MG ORAL TABS 4505675 AZITHROMYCI N Inactive SYMBICORT 160-4.5 MCG/ACT AERO 2 puffs BID SYMBICORT 160- 4.5 MCG/ACT AERO BUDESONIDE-FORMOTEROL FUMARATE Inactive ALBUTEROL SULFATE 0.083 % NEBU SOLN one vial per nebul izer every 4-6 hours as needed ALBUTEROL SULFATE 0.083 % NEBU SOLN 46510 8 ALBUTEROL SULFATE Inactive NEBULIZER MISC use as directed NEBULIZER MISC NEBULIZERS Inactive TESSALON PERLES 100 MG CAP 1 tablet by mouth 3 times daily 07/07 TESSALON PERLES 100 MG CAP 479571 BENZONATATE Inact jairo CYCLOBENZAPRINE HCL 10 MG TABS Take 1 tab TID PRN for muscle pain CYCLOBENZAPRINE HCL 10 MG TABS 195356 CYCLOBENZAPRINE HCL Inactive AUGMENTIN 875-125 MG TAB 1 po BID x 10 days AUGMENTIN 875- 125 MG TAB 562719 AMOXICILLIN-POT CLAVULANATE Inactive BACTROBAN 2 % CREAM Apply to affected area BID for up to 10 days BACTROBAN 2 % CREAM 342431 MUPIROCIN CALCIUM Inactive AMOXICILLIN 500 MG CAPS 2 po BID x 10 days AMOXICILLIN 500 MG CAPS 197964 AMOXICILLIN Inactive AZITHROMYCIN 250 MG TABS take 2 po today then take 1 po days 2-5 AZITHROMYCIN 250 MG TABS 8683015 AZITHROMYCIN Inactiv e LEVAQUIN 500 MG TABS 1 pill by mouth daily LEVAQUIN 500 MG TABS 789993 LEVOFLOXACIN Inactive AUGMENTIN 875-125 MG TABS 1 pill by mouth twice daily AUGMENTIN 875-125 MG TABS 387088 AMOXICILLIN-POT CLAVULANATE Inacti ve AUGMENTIN 875-125 MG TAB 1 po BID x 10 days AUGMENTIN 875- 125 MG TAB 144003 AMOXICILLIN-POT CLAVULANATE Inactive PREDNISONE 20 MG TAB take 3 tabs daily for 3 days , 2 tabs daily for 3 days, 1 tab daily for 3 days, 1/2 tab daily for 3 days PREDNISONE 20 MG TAB 197348 PREDNISONE Inactive CIPRO 500 MG TAB 1 tablet by mouth twice daily CIPRO 500 MG TAB 551267 CIPROFLOXACIN HCL Inactive Vital Signs Date Name [...] ... - Chemistry sodium, serum 142 mmol/L 561-780 4658/07/22 carbon dioxide, venous blood 33.1 mmol/L 21.0-32 [...] 56 mg/dL 30-200 cholesterol, serum 200 mg/dL 076-351 0046/07/22 hemoglobin A1C, blood, as % of total [...] 0-19 Encounters Code Encounter Date Provider Facility CPT-72383 Level 3 Est. Patient 11:27:00 SOFT SUGAR OPERATOR HEAD Ike Deluna MD [facility] CPT-49908 Level 3 Est. Patient 08:50:57 SOFT SUGAR OPERATOR HEAD Dangelo MACHINE VENEER REPAIRER [facility] CPT-85279 Level 3 Est. Patient 10:04:13 CDT Bertrand marquez [facility] CPT-71318 Level 4 Est. Patient 16:02:10 SOFT SUGAR OPERATOR HEAD Dangelo [facility] CPT-40042 Level 3 Est. Patient 13:04:54 SOFT SUGAR OPERATOR HEAD Dangelo [facility] CPT-77811 Level 3 Est. Patient 12:56:37 CDT Bertrand marquez [facility] CPT-94012 Level 3 Est. Patient 19:12:03 CDT Yoli tolbert MD PhD [facility] CPT-75357 Level 3 Est. Patient 14:36:01 CDT Yoli tolbert MD [facility] CPT-41791 Level 2 Est. Patient 08:00:22 CDT Jcarlos dc MD [facility]-09836 Level 3 Est. Patient 19:06:55 CDT Bertrand marquez [facility] CPT-37263 Level 3 Est. Patient 10:08:23 SOFT SUGAR OPERATOR HEAD Bertrand marquez [facility] CPT-68473 Level 3 Est. Patient 16:37:54 SOFT SUGAR OPERATOR HEAD Bertrand marquez [facility] CPT-93563 Level 3 Est. Patient 11:31:59 SOFT SUGAR OPERATOR HEAD Bertrand marquez [facility] CPT-78883 Level 3 Est. Patient 10:20:08 CDT Demie Ahl jacklyn [facility] CPT-45649 Level 3 Est. Patient 13:45:20 CDT Sanket Garciakelvin buckley [facility] CPT-42878 Level 3 Est. Patient 12:51:06 CDT Adolfo Jerzy villasenor [facility] CPT-79510 Level 3 Est. Patient 11:22:51 SOFT SUGAR OPERATOR HEAD Yoli tolbert MD PhD [facility] CPT-92098 Level 3 Est. Patient 13:33:19 CDT Bertrand Sabillon ee DO [facility] Procedures Code Procedure Name Date Entry Date Standard Desc ription CPT-35728 Wound Culture - LAB USE ONLY 15:45:25 CDT 2 CPT-01992 Venipuncture Draw Fee 10:23:01 CDT CPT-J0696 Rocephin 1000 mg (Ceftriaxone) 16:20:30 SOFT SUGAR OPERATOR HEAD CPT-78358 Abx/Therapy Injection 16:20:29 SOFT SUGAR OPERATOR HEAD CPT-J0696 Rocephin 1gm Inj Solr 15:51:59 SOFT SUGAR OPERATOR HEAD CPT-46230 Chest 2V Frontal and Lat 15:20:28 SOFT SUGAR OPERATOR HEAD 07/22 CPT-20754 Breathing Tx 14:51:55 SOFT SUGAR OPERATOR HEAD CPT-16142 Breathing Tx 09:57:16 SOFT SUGAR OPERATOR HEAD CPT-70280 Knee comp 4/> V 11:58:06 SOFT SUGAR OPERATOR HEAD
--- OUTSIDE RECORDS SUMMARY | 2019-11-13 10:32 | XMS REPORT | Clinical Summary ---
[...] NDC Status Provider Patient Instruction VITAMIN D3 02054 UNIT CAPS 1 pill Week x 4 months for vitamin D deficiency/osteoporosis CHOLECALCIFEROL 10732123827 Active Darlyn Monzon Active BENZONATATE 200 MG ORAL CAPS 1 three times a day as needed for c ough BENZONATATE 11814147809 Active Ike Deluna MD Acti ve ZITHROMAX Z-MARTIN 250 MG TABS 2 today and then 1 daily for 4 days 201 12/01/06 AZITHROMYCIN 54481011884 Active Ike Deluna MD Active ADDERALL 10 MG ORAL TABS 1 tab twice daily AMPHETAMINE-DEXTROAMPHETAMINE 22497835041 Active Ike Deluna MD Active BACTROBAN 2 % CREAM Apply to affected area BID for up to 10 days MUPIROCIN CALCIUM 25248547037 No Longer Active Ike Deluna MD Active CIPRO 500 MG TAB 1 tablet by mouth twice daily CIPROFLOXACIN HCL 00337906721 No Longer Active Adriana Bender LPN Active AUGMENTIN 875-125 MG TAB 1 po BID x 10 days AMOXICILLIN- POT CLAVULANATE 80175402757 No Longer Active Adriana Bender LPN Active MODAFINIL 200 MG ORAL TABS Take 1/2 tab po in the am and 1/2 tab po at noon MODAFINIL 06361359063 Active Darlyn Monzon A ctive CYCLOBENZAPRINE HCL 10 MG TABS Take 1 tab TID PRN for muscle pain CYCLOBENZAPRINE HCL 58661582106 No Longer Active Bertrand Patel DO Ac tive TESSALON PERLES 100 MG CAP 1 tablet by mouth 3 times daily 07/07 BENZONATATE 81484252012 No Longer Active Bertrand Patel DO Ac tive NEBULIZER MISC use as directed NEBULIZERS 608275 81859 No Longer Active Bertrand Patel DO Active ALBUTEROL SULFATE 0.083 % NEBU SOLCammy one vial per nebul izer every 4-6 hours as needed ALBUTEROL SULFATE 49096457547 No Longer Active Bertrand Patel DO Active SYMBICORT 160-4.5 MCG/ACT AERO 2 puffs BID BUDESONIDE- FORMOTEROL FUMARATE 94737052742 No Longer Active Bertrand Patel DO Ac tive PREDNISONE 20 MG TAB take 3 tabs daily for 3 days , 2 tabs daily for 3 days, 1 tab daily for 3 days, 1/2 tab daily for 3 days P REDNISONE 40748999788 No Longer Active Silvia Arnold APRN Active AZITHROMYCIN 250 MG ORAL TABS Take 2 tabs po today then 1 ta b po daily AZITHROMYCIN 32384464411 No Longer Active Silvia Jorge leslye TOVARN Active AUGMENTIN 875-125 MG TAB 1 po BID x 10 days AMOXICILLIN- POT CLAVULANATE 18108012727 No Longer Active Adriana Bender LPN Active CHEWABLE CALCIUM 500-200-40 MG-UNT-MCG ORAL CHEW 1 chew tab bid 201 11/03/03 CALCIUM-VITAMIN D-VITAMIN K 84674143238 Active Silvia Arnold APRN Active EQ COMPLETE MULTIVIT ADULT 50+ ORAL TABS 1 tab po bid MULTIPLE VITAMINS-MINERALS 13838465446 Active Silvia Arnold APRN Act jairo HYDROCODONE-ACETAMINOPHEN 7.5-325 MG TABS TAKE ONE TAB EVERY 6 HOURS BY MOUTH NEEDED FOR PAIN HYDROCODONE-ACETAMINOPHEN 10543947221 Acti raheel Mcmullen Active LORTAB 7.5-500 MG TABS take one po Q6 hours HYDROCODONE-ACETAMINOPHEN No Longer Active Nirmal Robbins RN Active [facility] MELATONIN 5-10 MG CR-TABS Take one by mouth daily at bedtime MELATONIN-PYRIDOXINE 42216942320 No Longer Active Bertrand Patel DO Active VITAMIN E 200 UNIT CAPS 1 cap po qd VITAMIN E 316 65278646 No Longer Active Bertrand Patel DO Active B-12 1000 MCG CAPS 1 tab daily CYANOCOBALAMIN 31 206701394 No Longer Active Bertrand Patel DO Active METFORMIN HCL 500 MG TABS 1 bid METFORMIN HCL 75913846142 No Longer Active Bertrand Patel DO Active FUROSEMIDE 20 MG TABS 1 pill by mouth daily if needed for edema FUROSEMIDE 51450610372 No Longer Active Bertrand Patel DO Act jairo PRAVASTATIN SODIUM 20 MG TABS 1 tablet by mouth daily at bedtime PRAVASTATIN SODIUM 40123215616 No Longer Active Bertrand Patel DO Active AUGMENTIN 875-125 MG TABS 1 pill by mouth twice daily AMOXICILLIN-POT CLAVULANATE 93890895684 No Longer Active Yoli Mercado MD PhD Active LEVAQUIN 500 MG TABS 1 pill by mouth daily LEVO FLOXACIN 99382704567 No Longer Active Yoli Mercado MD PhD Active AMLODIPINE BESYLATE 5 MG TABS 1 tablet by mouth daily for bl ood pressure AMLODIPINE BESYLATE 61998029991 Active Darlyn Monzon Active MICARDIS 80 MG TABS 1 tablet daily for blood pressure TELMISARTAN 56481904407 Active Bertrand Patel DO Active MICARDIS HCT 80-12.5 MG TABS 1 qd TELMISARTA N-HCTZ 53322366283 No Longer Active Bertrand Patel DO Active CINNAMON ALPHA LIPOIC AC CMPLX CAPS by mouth twice a d ay in AM by mouth twice a day in PM ALPHA LIPOIC [id number] CAPS 146772 37502 No Longer Active Bertrand Patel DO Active AZITHROMYCIN 500 MG SOLR 1 po q day AZITHROMYCI N 17700018624 No Longer Active Bertrand Patel DO Active CYMBALTA 30 MG CPEP 1 cap by mouth daily DULOXE CATHI HCL 95981411218 No Longer Active Bertrand Patel DO Active CYMBALTA 60 MG CPEP 1 cap by mouth daily DULOXE CATHI HCL 29920379422 Active Keysha Jones MA Active WELLBUTRIN 75 MG TABS 2 times daily BUPROPION H CL 72253701689 No Longer Active Bertrand W Jorge DO Active PROAIR HFA 108 (90 BASE) MCG/ACT AERS take one to two puffs po Q4-6 hour prn cough and shortness of breath ALBUTEROL SULFATE 0191987178 2 Active Silvia Arnold CARPENTER INSPECTOR Active AZITHROMYCIN 250 MG TABS take 2 po today then take 1 po days 2-5 AZITHROMYCIN 93073385709 No Longer Active Adolfo OSORIO Active PERMETHRIN 5 % CREA apply neck to toes tonight a nd then rinse off in morning. repeat at 7 days PERMETHRIN 44515589039 No Longer Active Adolfo OSORIO Active AMOXICILLIN 500 MG CAPS 2 po BID x 10 days AMOX ICILLIN 00562992995 No Longer Active Yoli Mercado MD PhD Active ALPRAZOLAM 0.5 MG TAB 1 tab by mouth tid ALPRAZOL AM 40791224050 Active Nitza Mullins RPT,RMA Active INSUPEN ULTRAFIN 31G X 6 MM MISC USE DIRECTED 03/04 INSULIN PEN NEEDLE 91188446688 No Longer Active Bertrand Patel DO Active TRANSDERM-SCOP 1.5 MG PT72 1 patch applied behind ear q 3 day 20 04/13/28 SCOPOLAMINE BASE 45873050479 No Longer Active Bertrand Patel DO Active MACRODANTIN 100 MG CAPS one p.o. b.i.d. x2 weeks 03/04 NITROFURANTOIN MACROCRYSTAL 57660467880 No Longer Active Bertrand Patel DO Active MACRODANTIN 100 MG CAPS one p.o. b.i.d. x2 weeks 03/04 MACRODANTIN 100 MG CAPS 0330306 NITROFURANTOIN MACROCRYSTAL Inactive TRANSDERM-SCOP 1.5 MG PT72 [...] at 7 days PERMETHRIN 5 % CREA 558254 PERMETHRIN Inactive WELLBUTRIN 75 MG TABS 2 times daily WELLBUTRIN 75 MG TABS BUPROPION HCL Inactive CYMBALTA 30 MG CPEP 1 cap by mouth daily CYMBALTA 30 MG CPEP 822026 DULOXETINE HCL Inactive AZITHROMYCIN 500 MG SOLR 1 po q day ALTA THROMYCIN 500 MG SOLR 59307255480 AZITHROMYCIN Inactive CINNAMON ALPHA LIPOIC AC CMPLX CAPS by mouth twice a d ay in AM by mouth twice a day in PM CINNAMON ALPHA LIPOIC AC CMPLX CAPS ALPHA LIPOIC [id number] CAPS Inactive MICARDIS HCT 80-12.5 MG TABS 1 qd MICARDI S HCT 80-12.5 MG TABS 125588 TELMISARTAN-HCTZ Inactive PRAVASTATIN SODIUM 20 MG TABS 1 tablet by mouth daily at bedtime PRAVASTATIN SODIUM 20 MG TABS 606398 PRAVASTATIN SODIUM Inactive FUROSEMIDE 20 MG TABS 1 pill by mouth daily if needed for edema FUROSEMIDE 20 MG TABS 661398 FUROSEMIDE Inactive METFORMIN HCL 500 MG TABS 1 bid METFORMIN HCL 500 MG TABS 471087 METFORMIN HCL Inactive B-12 1000 MCG CAPS 1 tab daily B-12 1000 MCG CAP S CYANOCOBALAMIN Inactive VITAMIN E 200 UNIT CAPS 1 cap po qd VITAMIN E 2 00 UNIT CAPS 4051053 VITAMIN E Inactive [facility] MELATONIN 5-10 MG CR-TABS Take one by mouth daily at bedtime [facility] MELATONIN 5-10 MG CR-TABS MELATONIN-PYRIDOXI NE Inactive LORTAB 7.5-500 MG TABS take one po Q6 hours LORTAB 7.5-500 MG TABS HYDROCODONE-ACETAMINOPHEN Inactive AZITHROMYCIN 250 MG ORAL TABS Take 2 tabs po today then 1 ta b po daily AZITHROMYCIN 250 MG ORAL TABS 3659936 AZITHROMYCI N Inactive SYMBICORT 160-4.5 MCG/ACT AERO 2 puffs BID SYMBICORT 160- 4.5 MCG/ACT AERO BUDESONIDE-FORMOTEROL FUMARATE Inactive ALBUTEROL SULFATE 0.083 % NEBU SOLN one vial per nebul izer every 4-6 hours as needed ALBUTEROL SULFATE 0.083 % NEBU SOLN 49783 8 ALBUTEROL SULFATE Inactive NEBULIZER MISC use as directed NEBULIZER MISC NEBULIZERS Inactive TESSALON PERLES 100 MG CAP 1 tablet by mouth 3 times daily 07/07 TESSALON PERLES 100 MG CAP 630348 BENZONATATE Inact jairo CYCLOBENZAPRINE HCL 10 MG TABS Take 1 tab TID PRN for muscle pain CYCLOBENZAPRINE HCL 10 MG TABS 322085 CYCLOBENZAPRINE HCL Inactive AUGMENTIN 875-125 MG TAB 1 po BID x 10 days AUGMENTIN 875- 125 MG TAB 185293 AMOXICILLIN-POT CLAVULANATE Inactive BACTROBAN 2 % CREAM Apply to affected area BID for up to 10 days BACTROBAN 2 % CREAM 424874 MUPIROCIN CALCIUM Inactive AMOXICILLIN 500 MG CAPS 2 po BID x 10 days AMOXICILLIN 500 MG CAPS 622484 AMOXICILLIN Inactive AZITHROMYCIN 250 MG TABS take 2 po today then take 1 po days 2-5 AZITHROMYCIN 250 MG TABS 4566724 AZITHROMYCIN Inactiv e LEVAQUIN 500 MG TABS 1 pill by mouth daily LEVAQUIN 500 MG TABS 661688 LEVOFLOXACIN Inactive AUGMENTIN 875-125 MG TABS 1 pill by mouth twice daily AUGMENTIN 875-125 MG TABS 513210 AMOXICILLIN-POT CLAVULANATE Inacti ve AUGMENTIN 875-125 MG TAB 1 po BID x 10 days AUGMENTIN 875- 125 MG TAB 918364 AMOXICILLIN-POT CLAVULANATE Inactive PREDNISONE 20 MG TAB take 3 tabs daily for 3 days , 2 tabs daily for 3 days, 1 tab daily for 3 days, 1/2 tab daily for 3 days PREDNISONE 20 MG TAB 025530 PREDNISONE Inactive CIPRO 500 MG TAB 1 tablet by mouth twice daily CIPRO 500 MG TAB 911146 CIPROFLOXACIN HCL Inactive Vital Signs Date Name [...] 5.8 % 4.3-6.0 cholesterol, serum 200 mg/dL 017-488 5803/07/22 triglyceride, serum, fasting 56 mg/dL 30-200 HDL cholesterol, serum 80 mg/dL 32-96 LDL cholesterol, serum 109 mg/dL 0-130 albumin/creatinine ratio, urine < 30 mg/g mg/g{creat} 0-2 9 TSH 1.16 m[iU]/mL 0.36-3.74 sodium, serum 142 mmol/L 812-145 2253/07/22 carbon dioxide, venous blood 33.1 mmol/L 21.0-32 [...] 0-19 Encounters Code Encounter Date Provider Facility CPT-96759 Level 4 Est. Patient 12:31:54 CDT Bertrand marquez [facility] CPT-94444 Level 3 Est. Patient 11:27:00 EVENTS SPECIALIST Ike Deluna MD [facility] CPT-60705 Level 3 Est. Patient 08:50:57 EVENTS SPECIALIST Dangelo CARPENTER INSPECTOR [facility] CPT-16175 Level 3 Est. Patient 10:04:13 CDT Bertrand marquez [facility] CPT-45418 Level 4 Est. Patient 16:02:10 EVENTS SPECIALIST Dangelo BARAJAS [facility] CPT-53671 Level 3 Est. Patient 13:04:54 EVENTS SPECIALIST Dangelo TOVARN [facility]-05342 Level 3 Est. Patient 12:56:37 CDT Bertrand marquez [facility] CPT-53231 Level 3 Est. Patient 19:12:03 CDT Yoli tolbert MD [facility]-92961 Level 3 Est. Patient 14:36:01 CDT Yoli tolbert MD [facility] CPT-80533 Level 2 Est. Patient 08:00:22 CDT Jcarlos dc MD [facility]-12234 Level 3 Est. Patient 19:06:55 CDT Bertrand marquez [facility] CPT-20618 Level 3 Est. Patient 10:08:23 EVENTS SPECIALIST Bertrand marquez -70052 Level 3 Est. Patient 16:37:54 EVENTS SPECIALIST Bertrand marquez [facility] CPT-49151 Level 3 Est. Patient 11:31:59 EVENTS SPECIALIST Bertrand marquez [facility] CPT-86184 Level 3 Est. Patient 10:20:08 CDT Adolfo villasenor [facility] CPT-22768 Level 3 Est. Patient 13:45:20 CDT Sanket buckley [facility] CPT-93313 Level 3 Est. Patient 12:51:06 CDT Adolfo villasenor [facility] CPT-66951 Level 3 Est. Patient 11:22:51 EVENTS SPECIALIST Yoli tolbert MD [facility]-78420 Level 3 Est. Patient 13:33:19 CDT Bertrand marquez [facility] Procedures Code Procedure Name Date Entry Date Standard Desc ription CPT-94073 Wound Culture - LAB USE ONLY 15:45:25 CDT 2 CPT-17616 Venipuncture Draw Fee 10:23:01 CDT CPT-J0696 Rocephin 1000 mg (Ceftriaxone) 16:20:30 EVENTS SPECIALIST CPT-88025 Abx/Therapy Injection 16:20:29 EVENTS SPECIALIST CPT-J0696 Rocephin 1gm Inj Solr 15:51:59 EVENTS SPECIALIST CPT-89674 Chest 2V Frontal and Lat 15:20:28 EVENTS SPECIALIST 07/22 CPT-73545 Breathing Tx 14:51:55 EVENTS SPECIALIST CPT-32591 Breathing Tx 09:57:16 EVENTS SPECIALIST CPT-62105 Knee comp 4/> V 11:58:06 EVENTS SPECIALIST
--- OUTSIDE RECORDS SUMMARY | 2019-11-13 10:32 | XMS REPORT | Clinical Summary ---
Author Author Admin, Enrique Adamson Organization [employer] Address Unknown Phone Unavailable Allergies, Adverse [...] breath RISK OF SLEEP APNEA V12.59 Active Aodlfo OSORIO Other personal history of diseases of [...] Cough SINUSITIS, ACUTE 461.9 Active Silvia PARISI activity leader sinusitis, unspecified Fatigue 780.79 Active Silvia Arnold [...] tablet by mouth twice daily CIPROFLOXACIN HCL 17572263887 No Longer Active Adriana Bender LPN Active AUGMENTIN 875-125 MG TAB 1 po BID x 10 days AMOXICILLIN- POT CLAVULANATE 36151231662 No Longer Active Adriana Bender LPN Active BACTROBAN 2 % CREAM Apply to affected area BID for up to 10 days 20 18/03/27 MUPIROCIN CALCIUM 42707252982 Active Silvia Arnold APRN Act jairo MODAFINIL 200 MG ORAL TABS Take 1/2 tab po in the am and 1/2 tab po at noon MODAFINIL 70367248600 Active Silvia Arnold APRN Active CYCLOBENZAPRINE HCL 10 MG TABS Take 1 tab TID PRN for muscle pain CYCLOBENZAPRINE HCL 09966547290 No Longer Active Bertrand Patel DO Ac tive TESSALON PERLES 100 MG CAP 1 tablet by mouth 3 times daily 07/07 BENZONATATE 60448331835 No Longer Active Bertrand Patel DO Ac tive NEBULIZER MISC use as directed NEBULIZERS 478027 49038 No Longer Active Bertrand Patel DO Active ALBUTEROL SULFATE 0.083 % NEBU SOLN one vial per nebul izer every 4-6 hours as needed ALBUTEROL SULFATE 31873692325 No Longer Active Bertrand Patel DO Active SYMBICORT 160-4.5 MCG/ACT AERO 2 puffs BID BUDESONIDE- FORMOTEROL FUMARATE 86788612022 No Longer Active Bertrand Patel DO Ac tive PREDNISONE 20 MG TAB take 3 tabs daily for 3 days , 2 tabs daily for 3 days, 1 tab daily for 3 days, 1/2 tab daily for 3 days P REDNISONE 81777874327 No Longer Active Silvia Arnold APRN Active AZITHROMYCIN 250 MG ORAL TABS Take 2 tabs po today then 1 ta b po daily AZITHROMYCIN 03979189212 No Longer Active Silvia gavin APRN Active AUGMENTIN 875-125 MG TAB 1 po BID x 10 days AMOXICILLIN- POT CLAVULANATE 90941620637 No Longer Active Adriana Bender LPN Active CHEWABLE CALCIUM 500-200-40 MG-UNT-MCG ORAL CHEW 1 chew tab bid 201 11/03/03 CALCIUM-VITAMIN D-VITAMIN K 45936400112 Active Silvia Arnold APRN Active EQ COMPLETE MULTIVIT ADULT 50+ ORAL TABS 1 tab po bid MULTIPLE VITAMINS-MINERALS 47344265497 Active Silvia Arnold APRN Act jairo HYDROCODONE-ACETAMINOPHEN 7.5-325 MG TABS TAKE ONE TAB EVERY 6 HOURS BY MOUTH NEEDED FOR PAIN HYDROCODONE-ACETAMINOPHEN 63860848915 Acti ve Lizy العلي Active LORTAB 7.5-500 MG TABS take one po Q6 hours HYDROCODONE-ACETAMINOPHEN No Longer Active Nirmal Robbins RN Active [facility] MELATONIN 5-10 MG CR-TABS Take one by mouth daily at bedtime MELATONIN-PYRIDOXINE 69095473446 No Longer Active Bertrand Patel DO Active VITAMIN E 200 UNIT CAPS 1 cap po qd VITAMIN E 316 94695766 No Longer Active Bertrand Patel DO Active B-12 1000 MCG CAPS 1 tab daily CYANOCOBALAMIN 31 666745102 No Longer Active Bertrand Patel DO Active METFORMIN HCL 500 MG TABS 1 bid METFORMIN HCL 69931657818 No Longer Active Bertrand Patel DO Active FUROSEMIDE 20 MG TABS 1 pill by mouth daily if needed for edema FUROSEMIDE 91288959468 No Longer Active Bertrand Patel DO Act jairo PRAVASTATIN SODIUM 20 MG TABS 1 tablet by mouth daily at bedtime PRAVASTATIN SODIUM 92484079257 No Longer Active Bertrand Patel DO Active AUGMENTIN 875-125 MG TABS 1 pill by mouth twice daily AMOXICILLIN-POT CLAVULANATE 97038787129 No Longer Active Yoli Mercado MD PhD Active LEVAQUIN 500 MG TABS 1 pill by mouth daily LEVO FLOXACIN 48464295688 No Longer Active Yoli Mercado MD PhD Active AMLODIPINE BESYLATE 5 MG TABS 1 tablet by mouth daily for bl ood pressure AMLODIPINE BESYLATE 79155058131 Active Keysha Jones MA Active MICARDIS 80 MG TABS 1 tablet daily for blood pressure TELMISARTAN 26570542173 Active Keysha Jones MA Active MICARDIS HCT 80-12.5 MG TABS 1 qd TELMISARTA N-HCTZ 75857236523 No Longer Active Bertrand Patel DO Active CINNAMON ALPHA LIPOIC AC CMPLX CAPS by mouth twice a d ay in AM by mouth twice a day in PM ALPHA LIPOIC [id number] CAPS 269395 84500 No Longer Active Bertrand Patel DO Active AZITHROMYCIN 500 MG SOLR 1 po q day AZITHROMYCI N 43858189975 No Longer Active Bertrand Patel DO Active CYMBALTA 30 MG CPEP 1 cap by mouth daily DULOXE CATHI HCL 82309379888 No Longer Active Bertrand Patel DO Active CYMBALTA 60 MG CPEP 1 cap by mouth daily DULOXE CATHI HCL 47360404151 Active Keysha Jones MA Active WELLBUTRIN 75 MG TABS 2 times daily BUPROPION H CL 77321276269 No Longer Active Bertrand Patel DO Active PROAIR HFA 108 (90 BASE) MCG/ACT AERS take one to two puffs po Q4-6 hour prn cough and shortness of breath ALBUTEROL SULFATE 3845830210 2 Active Silvia Arnold CREMATORIUM OPERATOR Active AZITHROMYCIN 250 MG TABS take 2 po today then take 1 po days 2-5 AZITHROMYCIN 10357187225 No Longer Active Adolfo OSORIO Active PERMETHRIN 5 % CREA apply neck to toes tonight a nd then rinse off in morning. repeat at 7 days PERMETHRIN 00245915959 No Longer Active Adolfo OSORIO Active AMOXICILLIN 500 MG CAPS 2 po BID x 10 days AMOX ICILLIN 05497942099 No Longer Active Yoli Mercado MD PhD Active ALPRAZOLAM 0.5 MG TAB 1 tab by mouth tid ALPRAZOL AM 85442589852 Active Nitza Mullins RPT,RMA Active INSUPEN ULTRAFIN 31G X 6 MM MISC USE DIRECTED 03/04 INSULIN PEN NEEDLE 33085124340 No Longer Active Bertrand Patel DO Active TRANSDERM-SCOP 1.5 MG PT72 1 patch applied behind ear q 3 day 20 04/13/28 SCOPOLAMINE BASE 27004470028 No Longer Active Bertrand Patel DO Active MACRODANTIN 100 MG CAPS one p.o. b.i.d. x2 weeks 03/04 NITROFURANTOIN MACROCRYSTAL 63586235469 No Longer Active Bertrand Patel DO Active MACRODANTIN 100 MG CAPS one p.o. b.i.d. x2 weeks 03/04 MACRODANTIN 100 MG CAPS 3700965 NITROFURANTOIN MACROCRYSTAL Inactive TRANSDERM-SCOP 1.5 MG PT72 [...] at 7 days PERMETHRIN 5 % CREA 861307 PERMETHRIN Inactive WELLBUTRIN 75 MG TABS 2 times daily WELLBUTRIN 75 MG TABS BUPROPION HCL Inactive CYMBALTA 30 MG CPEP 1 cap by mouth daily CYMBALTA 30 MG CPEP 132348 DULOXETINE HCL Inactive AZITHROMYCIN 500 MG SOLR 1 po q day ALTA THROMYCIN 500 MG SOLR 98426161278 AZITHROMYCIN Inactive CINNAMON ALPHA LIPOIC AC CMPLX CAPS by mouth twice a d ay in AM by mouth twice a day in PM CINNAMON ALPHA LIPOIC AC CMPLX CAPS ALPHA LIPOIC [id number] CAPS Inactive MICARDIS HCT 80-12.5 MG TABS 1 qd MICARDI S HCT 80-12.5 MG TABS 128556 TELMISARTAN-HCTZ Inactive PRAVASTATIN SODIUM 20 MG TABS 1 tablet by mouth daily at bedtime PRAVASTATIN SODIUM 20 MG TABS 344553 PRAVASTATIN SODIUM Inactive FUROSEMIDE 20 MG TABS 1 pill by mouth daily if needed for edema FUROSEMIDE 20 MG TABS 468817 FUROSEMIDE Inactive METFORMIN HCL 500 MG TABS 1 bid METFORMIN HCL 500 MG TABS 839230 METFORMIN HCL Inactive B-12 1000 MCG CAPS 1 tab daily B-12 1000 MCG CAP S CYANOCOBALAMIN Inactive VITAMIN E 200 UNIT CAPS 1 cap po qd VITAMIN E 2 00 UNIT CAPS 2606073 VITAMIN E Inactive [facility] MELATONIN 5-10 MG CR-TABS Take one by mouth daily at bedtime [facility] MELATONIN 5-10 MG CR-TABS MELATONIN-PYRIDOXI NE Inactive LORTAB 7.5-500 MG TABS take one po Q6 hours LORTAB 7.5-500 MG TABS HYDROCODONE-ACETAMINOPHEN Inactive AZITHROMYCIN 250 MG ORAL TABS Take 2 tabs po today then 1 ta b po daily AZITHROMYCIN 250 MG ORAL TABS 4113773 AZITHROMYCI N Inactive SYMBICORT 160-4.5 MCG/ACT AERO 2 puffs BID SYMBICORT 160- 4.5 MCG/ACT AERO BUDESONIDE-FORMOTEROL FUMARATE Inactive ALBUTEROL SULFATE 0.083 % NEBU SOLN one vial per nebul izer every 4-6 hours as needed ALBUTEROL SULFATE 0.083 % NEBU SOLN 49290 8 ALBUTEROL SULFATE Inactive NEBULIZER MISC use as directed NEBULIZER MISC NEBULIZERS Inactive TESSALON PERLES 100 MG CAP 1 tablet by mouth 3 times daily 07/07 TESSALON PERLES 100 MG CAP 540586 BENZONATATE Inact jairo CYCLOBENZAPRINE HCL 10 MG TABS Take 1 tab TID PRN for muscle pain CYCLOBENZAPRINE HCL 10 MG TABS 554803 CYCLOBENZAPRINE HCL Inactive AUGMENTIN 875-125 MG TAB 1 po BID x 10 days AUGMENTIN 875- 125 MG TAB 630810 AMOXICILLIN-POT CLAVULANATE Inactive AMOXICILLIN 500 MG CAPS 2 po BID x 10 days AMOXICILLIN 500 MG CAPS 332515 AMOXICILLIN Inactive AZITHROMYCIN 250 MG TABS take 2 po today then take 1 po days 2-5 AZITHROMYCIN 250 MG TABS 9958862 AZITHROMYCIN Inactiv e LEVAQUIN 500 MG TABS 1 pill by mouth daily LEVAQUIN 500 MG TABS 234453 LEVOFLOXACIN Inactive AUGMENTIN 875-125 MG TABS 1 pill by mouth twice daily AUGMENTIN 875-125 MG TABS 515393 AMOXICILLIN-POT CLAVULANATE Inacti ve AUGMENTIN 875-125 MG TAB 1 po BID x 10 days AUGMENTIN 875- 125 MG TAB 075813 AMOXICILLIN-POT CLAVULANATE Inactive PREDNISONE 20 MG TAB take 3 tabs daily for 3 days , 2 tabs daily for 3 days, 1 tab daily for 3 days, 1/2 tab daily for 3 days PREDNISONE 20 MG TAB 939527 PREDNISONE Inactive CIPRO 500 MG TAB 1 tablet by mouth twice daily CIPRO 500 MG TAB 075369 CIPROFLOXACIN HCL Inactive Vital Signs Date Name [...] 5.8 % 4.3-6.0 cholesterol, serum 200 mg/dL 753-916 9282/07/22 triglyceride, serum, fasting 56 mg/dL 30-200 HDL cholesterol, serum 80 mg/dL 32-96 LDL cholesterol, serum 109 mg/dL 0-130 albumin/creatinine ratio, urine < 30 mg/g mg/g{creat} 0-2 9 TSH 1.16 m[iU]/mL 0.36-3.74 sodium, serum 142 mmol/L 970-203 7291/07/22 carbon dioxide, venous blood 33.1 mmol/L 21.0-32 [...] Negative;Positive Encounters Code Encounter Date Provider Facility CPT-06432 Level 3 Est. Patient 08:50:57 SQE Silvia And dmitriy [facility] CPT-40060 Level 3 Est. Patient 10:04:13 CDT Bertrand marquez [facility] CPT-39439 Level 4 Est. Patient 16:02:10 SQE Silvia And dmitriy [facility] CPT-46123 Level 3 Est. Patient 13:04:54 SQE Dangelo [facility] CPT-25757 Level 3 Est. Patient 12:56:37 CDT Bertrand marquez [facility] CPT-03918 Level 3 Est. Patient 19:12:03 CDT Yoli tolbert MD PhD [facility] CPT-81227 Level 3 Est. Patient 14:36:01 CDT Yoli tolbert MD PhD [facility] CPT-44949 Level 2 Est. Patient 08:00:22 CDT Jcarlos dc MD [facility] CPT-04333 Level 3 Est. Patient 19:06:55 CDT Bertrand marquez [facility] CPT-37029 Level 3 Est. Patient 10:08:23 SQE Bertrand marquez [facility] CPT-19884 Level 3 Est. Patient 16:37:54 SQE Bertrand marquez [facility] CPT-44934 Level 3 Est. Patient 11:31:59 SQE Bertrand marquez [facility] CPT-42110 Level 3 Est. Patient 10:20:08 CDT Adolfo villasenor [facility] CPT-18210 Level 3 Est. Patient 13:45:20 CDT Sanket buckley [facility] CPT-79752 Level 3 Est. Patient 12:51:06 CDT Adolfo villasenor [facility] CPT-18475 Level 3 Est. Patient 11:22:51 SQE Yoli tolbert MD [facility] CPT-47399 Level 3 Est. Patient 13:33:19 CDT Bertrand marquez [facility] Procedures Code Procedure Name Date Entry Date Standard Desc ription CPT-99776 Wound Culture - LAB USE ONLY 15:45:25 CDT 2 CPT-88462 Venipuncture Draw Fee 10:23:01 CDT CPT-J0696 Rocephin 1000 mg (Ceftriaxone) 16:20:30 SQE CPT-94903 Abx/Therapy Injection 16:20:29 SQE CPT-J0696 Rocephin 1gm Inj Solr 15:51:59 SQE CPT-29836 Chest 2V Frontal and Lat 15:20:28 SQE 07/22 CPT-44006 Breathing Tx 14:51:55 SQE CPT-79290 Breathing Tx 09:57:16 SQE CPT-14467 Knee comp 4/> V 11:58:06 SQE
--- OUTSIDE RECORDS SUMMARY | 2019-11-13 10:32 | XMS REPORT | Clinical Summary ---
Author Author Admin, Enrique Adamson Organization [employer] Address Unknown Phone Unavailable Allergies, Adverse Reactions, [...] day as needed for c ough BENZONATATE 21199943201 Active Ike Deluna MD Acti ve ZITHROMAX Z-MARTIN 250 MG TABS 2 today and then 1 daily for 4 days 201 12/01/06 AZITHROMYCIN 25266237841 Active Ike Deluna MD Active ADDERALL 10 MG ORAL TABS 1 tab twice daily AMPHETAMINE-DEXTROAMPHETAMINE 79076144045 Active Ike Deluna MD Active BACTROBAN 2 % CREAM Apply to affected area BID for up to 10 days MUPIROCIN CALCIUM 11426926702 No Longer Active Ike Deluna MD Active CIPRO 500 MG TAB 1 tablet by mouth twice daily CIPROFLOXACIN HCL 33073361744 No Longer Active Adriana Bender LPN Active AUGMENTIN 875-125 MG TAB 1 po BID x 10 days AMOXICILLIN- POT CLAVULANATE 74297366125 No Longer Active Adriana Bender LPN Active MODAFINIL 200 MG ORAL TABS Take 1/2 tab po in the am and 1/2 tab po at noon MODAFINIL 37677734851 Active Darlyn vega CYCLOBENZAPRINE HCL 10 MG TABS Take 1 tab TID PRN for muscle pain CYCLOBENZAPRINE HCL 91037718061 No Longer Active Bertrand Patel DO Ac tive TESSALON PERLES 100 MG CAP 1 tablet by mouth 3 times daily 07/07 BENZONATATE 44983582478 No Longer Active Bertrand Patel DO Ac tive NEBULIZER MISC use as directed NEBULIZERS 816918 68526 No Longer Active Bertrand Patel DO Active ALBUTEROL SULFATE 0.083 % NEBU SOLN one vial per nebul izer every 4-6 hours as needed ALBUTEROL SULFATE 95060614012 No Longer Active Bertrand Patel DO Active SYMBICORT 160-4.5 MCG/ACT AERO 2 puffs BID BUDESONIDE- FORMOTEROL FUMARATE 80968370823 No Longer Active Bertrand Patel DO Ac tive PREDNISONE 20 MG TAB take 3 tabs daily for 3 days , 2 tabs daily for 3 days, 1 tab daily for 3 days, 1/2 tab daily for 3 days P REDNISONE 70684705073 No Longer Active Silvia Arnold APRN Active AZITHROMYCIN 250 MG ORAL TABS Take 2 tabs po today then 1 ta b po daily AZITHROMYCIN 97836697067 No Longer Active Silvia Jorge gavin JENN Active AUGMENTIN 875-125 MG TAB 1 po BID x 10 days AMOXICILLIN- POT CLAVULANATE 75678554104 No Longer Active Adriana Bender LPN Active CHEWABLE CALCIUM 500-200-40 MG-UNT-MCG ORAL CHEW 1 chew tab bid 201 11/03/03 CALCIUM-VITAMIN D-VITAMIN K 11395094108 Active Silvia Arnold APRN Active EQ COMPLETE MULTIVIT ADULT 50+ ORAL TABS 1 tab po bid MULTIPLE VITAMINS-MINERALS 94719291168 Active Silvia Arnold APRN Act jairo HYDROCODONE-ACETAMINOPHEN 7.5-325 MG TABS TAKE ONE TAB EVERY 6 HOURS BY MOUTH NEEDED FOR PAIN HYDROCODONE-ACETAMINOPHEN 94672756346 Acti raheel Mcmullen Active LORTAB 7.5-500 MG TABS take one po Q6 hours HYDROCODONE-ACETAMINOPHEN No Longer Active Nirmal Robbins RN Active [facility] MELATONIN 5-10 MG CR-TABS Take one by mouth daily at bedtime MELATONIN-PYRIDOXINE 56534949845 No Longer Active Bertrand Patel DO Active VITAMIN E 200 UNIT CAPS 1 cap po qd VITAMIN E 316 85458260 No Longer Active Bertrand Patel DO Active B-12 1000 MCG CAPS 1 tab daily CYANOCOBALAMIN 31 176583101 No Longer Active Bertrand Patel DO Active METFORMIN HCL 500 MG TABS 1 bid METFORMIN HCL 79603651077 No Longer Active Bertrand Patel DO Active FUROSEMIDE 20 MG TABS 1 pill by mouth daily if needed for edema FUROSEMIDE 92441603250 No Longer Active Bertrand W Jorge DO Act jairo PRAVASTATIN SODIUM 20 MG TABS 1 tablet by mouth daily at bedtime PRAVASTATIN SODIUM 76917120260 No Longer Active Bertrand Patel DO Active AUGMENTIN 875-125 MG TABS 1 pill by mouth twice daily AMOXICILLIN-POT CLAVULANATE 00296105981 No Longer Active Yoli Mercado MD PhD Active LEVAQUIN 500 MG TABS 1 pill by mouth daily LEVO FLOXACIN 97568589239 No Longer Active Yoli Mercado MD PhD Active AMLODIPINE BESYLATE 5 MG TABS 1 tablet by mouth daily for bl ood pressure AMLODIPINE BESYLATE 50227655018 Active Darlyn Monzon Active MICARDIS 80 MG TABS 1 tablet daily for blood pressure TELMISARTAN 12591541803 Active Darlyn Monzon Active MICARDIS HCT 80-12.5 MG TABS 1 qd TELMISARTA N-HCTZ 68368994014 No Longer Active Bertrand Patel DO Active CINNAMON ALPHA LIPOIC AC CMPLX CAPS by mouth twice a d ay in AM by mouth twice a day in PM ALPHA LIPOIC [id number] CAPS 156739 57531 No Longer Active Bertrand Patel DO Active AZITHROMYCIN 500 MG SOLR 1 po q day AZITHROMYCI N 88350367288 No Longer Active Bertrand Patel DO Active CYMBALTA 30 MG CPEP 1 cap by mouth daily DULOXE CATHI HCL 09602418815 No Longer Active Bertrand Patel DO Active CYMBALTA 60 MG CPEP 1 cap by mouth daily DULOXE CATHI HCL 11396138718 Active Keysha Jones MA Active WELLBUTRIN 75 MG TABS 2 times daily BUPROPION H CL 54097468780 No Longer Active Bertrand Patel DO Active PROAIR HFA 108 (90 BASE) MCG/ACT AERS take one to two puffs po Q4-6 hour prn cough and shortness of breath ALBUTEROL SULFATE 0975229538 2 Active Silviakevlin Arnold SIDEWALK INSPECTOR Active AZITHROMYCIN 250 MG TABS take 2 po today then take 1 po days 2-5 AZITHROMYCIN 80180203862 No Longer Active Adolfo OSORIO Active PERMETHRIN 5 % CREA apply neck to toes tonight a nd then rinse off in morning. repeat at 7 days PERMETHRIN 63099586313 No Longer Active Adolfo OSORIO Active AMOXICILLIN 500 MG CAPS 2 po BID x 10 days AMOX ICILLIN 05298492934 No Longer Active Yoli Mercado MD PhD Active ALPRAZOLAM 0.5 MG TAB 1 tab by mouth tid ALPRAZOL AM 25858919146 Active Nitza Mullins RPT,RMA Active INSUPEN ULTRAFIN 31G X 6 MM MISC USE DIRECTED 03/04 INSULIN PEN NEEDLE 01583663583 No Longer Active Bertrand Patel DO Active TRANSDERM-SCOP 1.5 MG PT72 1 patch applied behind ear q 3 day 20 04/13/28 SCOPOLAMINE BASE 35503490282 No Longer Active Bertrand Patel DO Active MACRODANTIN 100 MG CAPS one p.o. b.i.d. x2 weeks 03/04 NITROFURANTOIN MACROCRYSTAL 38614628192 No Longer Active Bertrnad Patel DO Active MACRODANTIN 100 MG CAPS one p.o. b.i.d. x2 weeks 03/04 MACRODANTIN 100 MG CAPS 7490456 NITROFURANTOIN MACROCRYSTAL Inactive TRANSDERM-SCOP 1.5 MG PT72 [...] at 7 days PERMETHRIN 5 % CREA 548032 PERMETHRIN Inactive WELLBUTRIN 75 MG TABS 2 times daily WELLBUTRIN 75 MG TABS BUPROPION HCL Inactive CYMBALTA 30 MG CPEP 1 cap by mouth daily CYMBALTA 30 MG CPEP 287750 DULOXETINE HCL Inactive AZITHROMYCIN 500 MG SOLR 1 po q day ALTA THROMYCIN 500 MG SOLR 84303451182 AZITHROMYCIN Inactive CINNAMON ALPHA LIPOIC AC CMPLX CAPS by mouth twice a d ay in AM by mouth twice a day in PM CINNAMON ALPHA LIPOIC AC CMPLX CAPS ALPHA LIPOIC [id number] CAPS Inactive MICARDIS HCT 80-12.5 MG TABS 1 qd MICARDI S HCT 80-12.5 MG TABS 580000 TELMISARTAN-HCTZ Inactive PRAVASTATIN SODIUM 20 MG TABS 1 tablet by mouth daily at bedtime PRAVASTATIN SODIUM 20 MG TABS 846400 PRAVASTATIN SODIUM Inactive FUROSEMIDE 20 MG TABS 1 pill by mouth daily if needed for edema FUROSEMIDE 20 MG TABS 561897 FUROSEMIDE Inactive METFORMIN HCL 500 MG TABS 1 bid METFORMIN HCL 500 MG TABS 052222 METFORMIN HCL Inactive B-12 1000 MCG CAPS 1 tab daily B-12 1000 MCG CAP S CYANOCOBALAMIN Inactive VITAMIN E 200 UNIT CAPS 1 cap po qd VITAMIN E 2 00 UNIT CAPS 6723634 VITAMIN E Inactive [facility] MELATONIN 5-10 MG CR-TABS Take one by mouth daily at bedtime [facility] MELATONIN 5-10 MG CR-TABS MELATONIN-PYRIDOXI NE Inactive LORTAB 7.5-500 MG TABS take one po Q6 hours LORTAB 7.5-500 MG TABS HYDROCODONE-ACETAMINOPHEN Inactive AZITHROMYCIN 250 MG ORAL TABS Take 2 tabs po today then 1 ta b po daily AZITHROMYCIN 250 MG ORAL TABS 6690507 AZITHROMYCI N Inactive SYMBICORT 160-4.5 MCG/ACT AERO 2 puffs BID SYMBICORT 160- 4.5 MCG/ACT AERO BUDESONIDE-FORMOTEROL FUMARATE Inactive ALBUTEROL SULFATE 0.083 % NEBU SOLN one vial per nebul izer every 4-6 hours as needed ALBUTEROL SULFATE 0.083 % NEBU SOLN 84375 8 ALBUTEROL SULFATE Inactive NEBULIZER MISC use as directed NEBULIZER MISC NEBULIZERS Inactive TESSALON PERLES 100 MG CAP 1 tablet by mouth 3 times daily 07/07 TESSALON PERLES 100 MG CAP 652220 BENZONATATE Inact jairo CYCLOBENZAPRINE HCL 10 MG TABS Take 1 tab TID PRN for muscle pain CYCLOBENZAPRINE HCL 10 MG TABS 843778 CYCLOBENZAPRINE HCL Inactive AUGMENTIN 875-125 MG TAB 1 po BID x 10 days AUGMENTIN 875- 125 MG TAB 264725 AMOXICILLIN-POT CLAVULANATE Inactive BACTROBAN 2 % CREAM Apply to affected area BID for up to 10 days BACTROBAN 2 % CREAM 121834 MUPIROCIN CALCIUM Inactive AMOXICILLIN 500 MG CAPS 2 po BID x 10 days AMOXICILLIN 500 MG CAPS 769319 AMOXICILLIN Inactive AZITHROMYCIN 250 MG TABS take 2 po today then take 1 po days 2-5 AZITHROMYCIN 250 MG TABS 7590045 AZITHROMYCIN Inactiv e LEVAQUIN 500 MG TABS 1 pill by mouth daily LEVAQUIN 500 MG TABS 695658 LEVOFLOXACIN Inactive AUGMENTIN 875-125 MG TABS 1 pill by mouth twice daily AUGMENTIN 875-125 MG TABS 633563 AMOXICILLIN-POT CLAVULANATE Inacti ve AUGMENTIN 875-125 MG TAB 1 po BID x 10 days AUGMENTIN 875- 125 MG TAB 097533 AMOXICILLIN-POT CLAVULANATE Inactive PREDNISONE 20 MG TAB take 3 tabs daily for 3 days , 2 tabs daily for 3 days, 1 tab daily for 3 days, 1/2 tab daily for 3 days PREDNISONE 20 MG TAB 856157 PREDNISONE Inactive CIPRO 500 MG TAB 1 tablet by mouth twice daily CIPRO 500 MG TAB 664342 CIPROFLOXACIN HCL Inactive Vital Signs Date Name [...] 1.16 m[iU]/mL 0.36-3.74 sodium, serum 142 mmol/L 170-733 5819/07/22 carbon dioxide, venous blood 33.1 mmol/L 21.0-32 [...] 5.8 % 4.3-6.0 cholesterol, serum 200 mg/dL 738-586 9954/07/22 triglyceride, serum, fasting 56 mg/dL 30-200 HDL [...] 0-19 Encounters Code Encounter Date Provider Facility CPT-84887 Level 4 Est. Patient 12:31:54 CDT Bertrand marquez [facility] CPT-38337 Level 3 Est. Patient 11:27:00 LINE DECORATOR Ike Deluna MD [facility] CPT-71062 Level 3 Est. Patient 08:50:57 LINE DECORATOR [facility] CPT-23819 Level 3 Est. Patient 10:04:13 CDT Bertrand marquez [facility] CPT-59209 Level 4 Est. Patient 16:02:10 LINE DECORATOR [facility] CPT-91495 Level 3 Est. Patient 13:04:54 LINE DECORATOR Dangelo SIDEWALK INSPECTOR [facility] CPT-59520 Level 3 Est. Patient 12:56:37 CDT Bertrand marquez [facility] CPT-40865 Level 3 Est. Patient 19:12:03 CDT Yoli tolbert MD PhD [facility] CPT-44453 Level 3 Est. Patient 14:36:01 CDT Yoli tolbert MD PhD [facility] CPT-30078 Level 2 Est. Patient 08:00:22 CDT Jcarlos dc MD [facility] CPT-53531 Level 3 Est. Patient 19:06:55 CDT Bertrand marquez [facility] CPT-92608 Level 3 Est. Patient 10:08:23 LINE DECORATOR Bertrand marquez [facility] CPT-76852 Level 3 Est. Patient 16:37:54 LINE DECORATOR Bertrand marquez [facility] CPT-70490 Level 3 Est. Patient 11:31:59 LINE DECORATOR Berrtand marquez [facility] CPT-69367 Level 3 Est. Patient 10:20:08 CDT Adolfo villasenor [facility] CPT-28820 Level 3 Est. Patient 13:45:20 CDT Sanket buckley [facility] CPT-91671 Level 3 Est. Patient 12:51:06 CDT Adolfo villasenor [facility] CPT-16977 Level 3 Est. Patient 11:22:51 LINE DECORATOR Yoli tolbert MD PhD [facility] CPT-24741 Level 3 Est. Patient 13:33:19 CDT Bertrand marquez [facility] Procedures Code Procedure Name Date Entry Date Standard Desc ription CPT-82670 Wound Culture - LAB USE ONLY 15:45:25 CDT 2 CPT-83077 Venipuncture Draw Fee 10:23:01 CDT CPT-J0696 Rocephin 1000 mg (Ceftriaxone) 16:20:30 LINE DECORATOR CPT-62470 Abx/Therapy Injection 16:20:29 LINE DECORATOR CPT-J0696 Rocephin 1gm Inj Solr 15:51:59 LINE DECORATOR CPT-42348 Chest 2V Frontal and Lat 15:20:28 LINE DECORATOR 07/22 CPT-23132 Breathing Tx 14:51:55 LINE DECORATOR CPT-35300 Breathing Tx 09:57:16 LINE DECORATOR CPT-89185 Knee comp 4/> V 11:58:06 LINE DECORATOR
--- OUTSIDE RECORDS SUMMARY | 2019-11-13 10:33 | XMS REPORT | Clinical Summary ---
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 general sinusitis, unspecified Fatigue 780.79 Active Silvia Arnold [...] tab daily for 3 days P REDNISONE 23678224053 Active Silvia Arnold APRN Active SYMBICORT 160-4.5 MCG/ACT AERO 2 puffs BID BUDESONIDE-FORMOTEROL FUMARATE 07192823129 Active Silvia Arnold APRN Active ALBUTEROL SULFATE 0.083 % NEBU SOLN one vial per nebul izer every 4-6 hours as needed ALBUTEROL SULFATE 14159741980 Active Silvia Arnold APRN Active NEBULIZER MISC use as directed NEBULIZERS 21637193371 Active Silvia Arnold APRN Active AZITHROMYCIN 250 MG ORAL TABS Take 2 tabs po today then 1 ta b po daily AZITHROMYCIN 55395242928 No Longer Active Silvia gavin APRN Active AUGMENTIN 875-125 MG TAB 1 po BID x 10 days AMOXICILLIN- POT CLAVULANATE 83793118065 No Longer Active Adriana Bender LPN Active TESSALON PERLES 100 MG CAP 1 tablet by mouth 3 times daily BENZONATATE 64353567721 Active Silvia Arnold APRN Active CHEWABLE CALCIUM 500-200-40 MG-UNT-MCG ORAL CHEW 1 chew tab bid 201 11/03/03 CALCIUM-VITAMIN D-VITAMIN K 22448539590 Active Silvia Arnold APRN Active EQ COMPLETE MULTIVIT ADULT 50+ ORAL TABS 1 tab po bid MULTIPLE VITAMINS-MINERALS 48805578497 Active Silvia Arnold APRN Act jairo HYDROCODONE-ACETAMINOPHEN 7.5-325 MG TABS TAKE ONE TAB EVERY 6 HOURS BY MOUTH NEEDED FOR PAIN HYDROCODONE-ACETAMINOPHEN 98716743900 Acti ve Bertrand Patel DO Active LORTAB 7.5-500 MG TABS take one po Q6 hours HYDROCODONE-ACETAMINOPHEN No Longer Active Nirmal Robbins RN Active [facility] MELATONIN 5-10 MG CR-TABS Take one by mouth daily at bedtime MELATONIN-PYRIDOXINE 43228742723 No Longer Active Bertrand Patel DO Active VITAMIN E 200 UNIT CAPS 1 cap po qd VITAMIN E 316 42932551 No Longer Active Bertrand Patel DO Active B-12 1000 MCG CAPS 1 tab daily CYANOCOBALAMIN 31 409808878 No Longer Active Bertrand Patel DO Active METFORMIN HCL 500 MG TABS 1 bid METFORMIN HCL 80099445822 No Longer Active Bertrand Patel DO Active FUROSEMIDE 20 MG TABS 1 pill by mouth daily if needed for edema FUROSEMIDE 15149859961 No Longer Active Bertrand Patel DO Act jairo PRAVASTATIN SODIUM 20 MG TABS 1 tablet by mouth daily at bedtime PRAVASTATIN SODIUM 31953832963 No Longer Active Bertrand Patel DO Active AUGMENTIN 875-125 MG TABS 1 pill by mouth twice daily AMOXICILLIN-POT CLAVULANATE 08130193522 No Longer Active Yoli Mercado MD PhD Active LEVAQUIN 500 MG TABS 1 pill by mouth daily LEVO FLOXACIN 79315343373 No Longer Active Yoli Mercado MD PhD Active CYCLOBENZAPRINE HCL 10 MG TABS Take 1 tab TID PRN for muscle pain CYCLOBENZAPRINE HCL 51892424376 Active Brittni Randall ASSISTANT FITNESS MANAGER Active AMLODIPINE BESYLATE 5 MG TABS 1 tablet by mouth daily for bl ood pressure AMLODIPINE BESYLATE 67102388792 Active Nitza Dorman PT,RMA Active MICARDIS 80 MG TABS 1 tablet daily for blood pressure TELMISARTAN 08953905023 Active Nitza Mullins RPT,RMA Active MICARDIS HCT 80-12.5 MG TABS 1 qd TELMISARTA N-HCTZ 96690371847 No Longer Active Bertrand Patel DO Active CINNAMON ALPHA LIPOIC AC CMPLX CAPS by mouth twice a d ay in AM by mouth twice a day in PM ALPHA LIPOIC [id number]-CH-[id number] CAPS 204110 37335 No Longer Active Bertrand Patel DO Active AZITHROMYCIN 500 MG SOLR 1 po q day AZITHROMYCI N 95958928387 No Longer Active Bertrand Patel DO Active CYMBALTA 30 MG CPEP 1 cap by mouth daily DULOXE CATHI HCL 45883122229 No Longer Active Bertrand Patel DO Active CYMBALTA 60 MG CPEP 1 cap by mouth daily DULOXE CATHI HCL 83770007440 Active Nitza Mullins RPT,RMA Active WELLBUTRIN 75 MG TABS 2 times daily BUPROPION H CL 04699122948 No Longer Active Bertrand Patel DO Active PROAIR HFA 108 (90 BASE) MCG/ACT AERS take one to two puffs po Q4-6 hour prn cough and shortness of breath ALBUTEROL SULFATE 0165235334 2 Active Silvia Arnold 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 repeat at 7 days PERMETHRIN 03890109275 No Longer Active Adolfo OSORIO Active AMOXICILLIN 500 MG CAPS 2 po BID x 10 days AMOX ICILLIN 17359745132 No Longer Active Yoli Mercado MD PhD Active ALPRAZOLAM 0.5 MG TAB 1 tab by mouth tid ALPRAZOL AM 25063179060 Active Bertrand Patel DO Active INSUPEN ULTRAFIN 31G X 6 MM MISC USE DIRECTED 03/04 INSULIN PEN NEEDLE 56245317273 No Longer Active Bertrand Patel DO Active TRANSDERM-SCOP 1.5 MG PT72 1 patch applied behind ear q 3 day 20 04/13/28 SCOPOLAMINE BASE 69388585126 No Longer Active Bertrand Patel DO Active MACRODANTIN 100 MG CAPS one p.o. b.i.d. x2 weeks 03/04 NITROFURANTOIN MACROCRYSTAL 87404662116 No Longer Active Bertrand Patel DO Active MACRODANTIN 100 MG CAPS one p.o. b.i.d. x2 weeks 03/04 MACRODANTIN 100 MG CAPS 3830507 NITROFURANTOIN MACROCRYSTAL Inactive TRANSDERM-SCOP 1.5 MG PT72 [...] at 7 days PERMETHRIN 5 % CREA 578359 PERMETHRIN Inactive WELLBUTRIN 75 MG TABS 2 times daily WELLBUTRIN 75 MG TABS 591574 BUPROPION HCL Inactive CYMBALTA 30 MG CPEP 1 cap by mouth daily CYMBALTA 30 MG CPEP 719407 DULOXETINE HCL Inactive AZITHROMYCIN 500 MG SOLR 1 po q day ALTA THROMYCIN 500 MG SOLR 43347100408 AZITHROMYCIN Inactive CINNAMON ALPHA LIPOIC AC CMPLX CAPS by mouth twice a d ay in AM by mouth twice a day in PM CINNAMON ALPHA LIPOIC AC CMPLX CAPS ALPHA LIPOIC [id number] CAPS Inactive MICARDIS HCT 80-12.5 MG TABS 1 qd MICARDI S HCT 80-12.5 MG TABS 963065 TELMISARTAN-HCTZ Inactive PRAVASTATIN SODIUM 20 MG TABS 1 tablet by mouth daily at bedtime PRAVASTATIN SODIUM 20 MG TABS 129936 PRAVASTATIN SODIUM Inactive FUROSEMIDE 20 MG TABS 1 pill by mouth daily if needed for edema FUROSEMIDE 20 MG TABS 065448 FUROSEMIDE Inactive METFORMIN HCL 500 MG TABS 1 bid METFORMIN HCL 500 MG TABS 015658 METFORMIN HCL Inactive B-12 1000 MCG CAPS 1 tab daily B-12 1000 MCG CAP S CYANOCOBALAMIN Inactive VITAMIN E 200 UNIT CAPS 1 cap po qd VITAMIN E 2 00 UNIT CAPS 4646217 VITAMIN E Inactive [facility] MELATONIN 5-10 MG CR-TABS Take one by mouth daily at bedtime [facility] MELATONIN 5-10 MG CR-TABS MELATONIN-PYRIDOXI NE Inactive LORTAB 7.5-500 MG TABS take one po Q6 hours LORTAB 7.5-500 MG TABS HYDROCODONE-ACETAMINOPHEN Inactive AZITHROMYCIN 250 MG ORAL TABS Take 2 tabs po today then 1 ta b po daily AZITHROMYCIN 250 MG ORAL TABS 3009548 AZITHROMYCI N Inactive AMOXICILLIN 500 MG CAPS 2 po BID x 10 days AMOXICILLIN 500 MG CAPS 430838 AMOXICILLIN Inactive AZITHROMYCIN 250 MG TABS take 2 po today then take 1 po days 2-5 AZITHROMYCIN 250 MG TABS 5155280 AZITHROMYCIN Inactiv e LEVAQUIN 500 MG TABS 1 pill by mouth daily LEVAQUIN 500 MG TABS 823998 LEVOFLOXACIN Inactive AUGMENTIN 875-125 MG TABS 1 pill by mouth twice daily AUGMENTIN 875-125 MG TABS 928828 AMOXICILLIN-POT CLAVULANATE Inacti ve AUGMENTIN 875-125 MG TAB 1 po BID x 10 days AUGMENTIN 875- 125 MG TAB 390400 AMOXICILLIN-POT CLAVULANATE Inactive Vital Signs Date Name [...] Negative;Positive Encounters Code Encounter Date Provider Facility CPT-78518 Level 4 Est. Patient 16:02:10 BOARD DESIGN ENGINEER Silvia Barnhart lemuelgypsy [facility]-03674 Level 3 Est. Patient 13:04:54 BOARD DESIGN ENGINEER Silvia Obey dmitriy [facility]-22837 Level 3 Est. Patient 12:56:37 CDT Bertrand marquez [facility]-46201 Level 3 Est. Patient 19:12:03 CDT Yoli tolbert MD [facility]-69035 Level 3 Est. Patient 14:36:01 CDT Yoli tolbert MD [facility] [place][note 2]43034 Level 2 Est. Patient 08:00:22 CDT Jcarlos dc MD [facility]-25134 Level 3 Est. Patient 19:06:55 CDT Bertrand marquez [facility]-23301 Level 3 Est. Patient 10:08:23 BOARD DESIGN ENGINEER Bertrand marquez [facility]-00049 Level 3 Est. Patient 16:37:54 BOARD DESIGN ENGINEER Bertrand marquez [facility]-88305 Level 3 Est. Patient 11:31:59 BOARD DESIGN ENGINEER Bertrand marquez [facility]-43426 Level 3 Est. Patient 10:20:08 CDT Adolfo villasenor [facility]-86283 Level 3 Est. Patient 13:45:20 CDT Sanket buckley [facility]-14018 Level 3 Est. Patient 12:51:06 CDT Adolfo OSORIO [facility] CPT-74641 Level 3 Est. Patient 11:22:51 BOARD DESIGN ENGINEER Yoli tolbert MD PhD [facility] CPT-26272 Level 3 Est. Patient 13:33:19 CDT Bertrand Sabillon ee DO [facility] Procedures Code Procedure Name Date Entry Date Standard Desc ription CPT-J0696 Rocephin 1000 mg (Ceftriaxone) 16:20:30 BOARD DESIGN ENGINEER CPT-55130 Abx/Therapy Injection 16:20:29 BOARD DESIGN ENGINEER CPT-J0696 Rocephin 1gm Inj Solr 15:51:59 BOARD DESIGN ENGINEER CPT-03908 Chest 2V Frontal and Lat 15:20:28 BOARD DESIGN ENGINEER 07/22 CPT-27220 Breathing Tx 14:51:55 BOARD DESIGN ENGINEER CPT-73321 Breathing Tx 09:57:16 BOARD DESIGN ENGINEER CPT-62911 Knee comp 4/> V 11:58:06 BOARD DESIGN ENGINEER
--- OUTSIDE RECORDS SUMMARY | 2019-11-13 10:33 | XMS REPORT | Clinical Summary ---
Author Author Admin, Enrique Adamson Organization [facility] Address Unknown Phone Unavailable Allergies, Adverse Reactions, [...] Cough SINUSITIS, ACUTE 461.9 Active Silvia PARISI bus matron sinusitis, unspecified Fatigue 780.79 Active Silvia Arnold [...] tab daily for 3 days P REDNISONE 33582400660 Active Silvia Arnold APRN Active SYMBICORT 160-4.5 MCG/ACT AERO 2 puffs BID BUDESONIDE-FORMOTEROL FUMARATE 31451684361 Active Silvia Arnold APRN Active ALBUTEROL SULFATE 0.083 % NEBU SOLN one vial per nebul izer every 4-6 hours as needed ALBUTEROL SULFATE 00943774107 Active Silvia Arnold APRN Active NEBULIZER MISC use as directed NEBULIZERS 27984364120 Active Silvia Arnold APRN Active AZITHROMYCIN 250 MG ORAL TABS Take 2 tabs po today then 1 ta b po daily AZITHROMYCIN 53108102259 No Longer Active Silvia gavin APRN Active AUGMENTIN 875-125 MG TAB 1 po BID x 10 days AMOXICILLIN- POT CLAVULANATE 46416177312 No Longer Active Adriana Bender LPN Active TESSALON PERLES 100 MG CAP 1 tablet by mouth 3 times daily BENZONATATE 79482760000 Active Silvia Arnold APRN Active CHEWABLE CALCIUM 500-200-40 MG-UNT-MCG ORAL CHEW 1 chew tab bid 201 11/03/03 CALCIUM-VITAMIN D-VITAMIN K 84500123588 Active Silvia Arnold APRN Active EQ COMPLETE MULTIVIT ADULT 50+ ORAL TABS 1 tab po bid MULTIPLE VITAMINS-MINERALS 89093123715 Active Silvia Arnold APRN Act jairo HYDROCODONE-ACETAMINOPHEN 7.5-325 MG TABS TAKE ONE TAB EVERY 6 HOURS BY MOUTH NEEDED FOR PAIN HYDROCODONE-ACETAMINOPHEN 08508042480 Acti ve Bertrand Patel DO Active LORTAB 7.5-500 MG TABS take one po Q6 hours HYDROCODONE-ACETAMINOPHEN No Longer Active Nirmal Robbins RN Active [facility] MELATONIN 5-10 MG CR-TABS Take one by mouth daily at bedtime MELATONIN-PYRIDOXINE 87933117566 No Longer Active Bertrand Patel DO Active VITAMIN E 200 UNIT CAPS 1 cap po qd VITAMIN E 316 80245959 No Longer Active Bertrand Patel DO Active B-12 1000 MCG CAPS 1 tab daily CYANOCOBALAMIN 31 608666757 No Longer Active Bertrand Patel DO Active METFORMIN HCL 500 MG TABS 1 bid METFORMIN HCL 28952033101 No Longer Active Bertrand Patel DO Active FUROSEMIDE 20 MG TABS 1 pill by mouth daily if needed for edema FUROSEMIDE 23732239779 No Longer Active Bertrand Patel DO Act jairo PRAVASTATIN SODIUM 20 MG TABS 1 tablet by mouth daily at bedtime PRAVASTATIN SODIUM 53776319758 No Longer Active Bertrand Patel DO Active AUGMENTIN 875-125 MG TABS 1 pill by mouth twice daily AMOXICILLIN-POT CLAVULANATE 63249765298 No Longer Active Yoli Mercado MD PhD Active LEVAQUIN 500 MG TABS 1 pill by mouth daily LEVO FLOXACIN 24840233351 No Longer Active Yoli Mercado MD PhD Active CYCLOBENZAPRINE HCL 10 MG TABS Take 1 tab TID PRN for muscle pain CYCLOBENZAPRINE HCL 17008705310 Active Brittni Randall MACHINIST TOOL AND DIE Active AMLODIPINE BESYLATE 5 MG TABS 1 tablet by mouth daily for bl ood pressure AMLODIPINE BESYLATE 55083659132 Active Nitza Dorman PT,RMA Active MICARDIS 80 MG TABS 1 tablet daily for blood pressure TELMISARTAN 70830633173 Active Nitza Mullins RPT,RMA Active MICARDIS HCT 80-12.5 MG TABS 1 qd TELMISARTA N-HCTZ 00759730013 No Longer Active Bertrand Patel DO Active CINNAMON ALPHA LIPOIC AC CMPLX CAPS by mouth twice a d ay in AM by mouth twice a day in PM ALPHA LIPOIC [id number]-[id number] CAPS 882782 50943 No Longer Active Bertrand Patel DO Active AZITHROMYCIN 500 MG SOLR 1 po q day AZITHROMYCI N 93570582864 No Longer Active Bertrand Patel DO Active CYMBALTA 30 MG CPEP 1 cap by mouth daily DULOXE CATHI HCL 30533294649 No Longer Active Bertrand Patel DO Active CYMBALTA 60 MG CPEP 1 cap by mouth daily DULOXE CATHI HCL 39537283402 Active Nitza Mullins RPT,RMA Active WELLBUTRIN 75 MG TABS 2 times daily BUPROPION H CL 09020158216 No Longer Active Bertrand Patel DO Active PROAIR HFA 108 (90 BASE) MCG/ACT AERS take one to two puffs po Q4-6 hour prn cough and shortness of breath ALBUTEROL SULFATE 9357169644 2 Active Silvia Arnold SENIOR SOFTWARE ENGINEER Active AZITHROMYCIN 250 MG TABS take 2 po today then take 1 po days 2-5 AZITHROMYCIN 16841281363 No Longer Active Adolfo OSORIO Active PERMETHRIN 5 % CREA apply neck to toes tonight a nd then rinse off in morning. repeat at 7 days PERMETHRIN 39672773143 No Longer Active Adolfo OSORIO Active AMOXICILLIN 500 MG CAPS 2 po BID x 10 days AMOX ICILLIN 41695935505 No Longer Active Yoli Mercado MD PhD Active ALPRAZOLAM 0.5 MG TAB 1 tab by mouth tid ALPRAZOL AM 80522628744 Active Bertrand Patel DO Active INSUPEN ULTRAFIN 31G X 6 MM MISC USE DIRECTED 03/04 INSULIN PEN NEEDLE 52288524050 No Longer Active Bertrand Patel DO Active TRANSDERM-SCOP 1.5 MG PT72 1 patch applied behind ear q 3 day 20 04/13/28 SCOPOLAMINE BASE 38315007344 No Longer Active Bertrand Patel DO Active MACRODANTIN 100 MG CAPS one p.o. b.i.d. x2 weeks 03/04 NITROFURANTOIN MACROCRYSTAL 80613889547 No Longer Active Bertrand Patel DO Active MACRODANTIN 100 MG CAPS one p.o. b.i.d. x2 weeks 03/04 MACRODANTIN 100 MG CAPS 2066055 NITROFURANTOIN MACROCRYSTAL Inactive TRANSDERM-SCOP 1.5 MG PT72 [...] at 7 days PERMETHRIN 5 % CREA 116430 PERMETHRIN Inactive WELLBUTRIN 75 MG TABS 2 times daily WELLBUTRIN 75 MG TABS 619359 BUPROPION HCL Inactive CYMBALTA 30 MG CPEP 1 cap by mouth daily CYMBALTA 30 MG CPEP 323005 DULOXETINE HCL Inactive AZITHROMYCIN 500 MG SOLR 1 po q day ALTA THROMYCIN 500 MG SOLR 36729095402 AZITHROMYCIN Inactive CINNAMON ALPHA LIPOIC AC CMPLX CAPS by mouth twice a d ay in AM by mouth twice a day in PM CINNAMON ALPHA LIPOIC AC CMPLX CAPS ALPHA LIPOIC [id number] CAPS Inactive MICARDIS HCT 80-12.5 MG TABS 1 qd MICARDI S HCT 80-12.5 MG TABS 403911 TELMISARTAN-HCTZ Inactive PRAVASTATIN SODIUM 20 MG TABS 1 tablet by mouth daily at bedtime PRAVASTATIN SODIUM 20 MG TABS 461050 PRAVASTATIN SODIUM Inactive FUROSEMIDE 20 MG TABS 1 pill by mouth daily if needed for edema FUROSEMIDE 20 MG TABS 414624 FUROSEMIDE Inactive METFORMIN HCL 500 MG TABS 1 bid METFORMIN HCL 500 MG TABS 433882 METFORMIN HCL Inactive B-12 1000 MCG CAPS 1 tab daily B-12 1000 MCG CAP S CYANOCOBALAMIN Inactive VITAMIN E 200 UNIT CAPS 1 cap po qd VITAMIN E 2 00 UNIT CAPS 4861797 VITAMIN E Inactive [facility] MELATONIN 5-10 MG CR-TABS Take one by mouth daily at bedtime [facility] MELATONIN 5-10 MG CR-TABS MELATONIN-PYRIDOXI NE Inactive LORTAB 7.5-500 MG TABS take one po Q6 hours LORTAB 7.5-500 MG TABS HYDROCODONE-ACETAMINOPHEN Inactive AZITHROMYCIN 250 MG ORAL TABS Take 2 tabs po today then 1 ta b po daily AZITHROMYCIN 250 MG ORAL TABS 5742888 AZITHROMYCI N Inactive AMOXICILLIN 500 MG CAPS 2 po BID x 10 days AMOXICILLIN 500 MG CAPS 527667 AMOXICILLIN Inactive AZITHROMYCIN 250 MG TABS take 2 po today then take 1 po days 2-5 AZITHROMYCIN 250 MG TABS 6880365 AZITHROMYCIN Inactiv e LEVAQUIN 500 MG TABS 1 pill by mouth daily LEVAQUIN 500 MG TABS 887597 LEVOFLOXACIN Inactive AUGMENTIN 875-125 MG TABS 1 pill by mouth twice daily AUGMENTIN 875-125 MG TABS 912704 AMOXICILLIN-POT CLAVULANATE Inacti ve AUGMENTIN 875-125 MG TAB 1 po BID x 10 days AUGMENTIN 875- 125 MG TAB 585200 AMOXICILLIN-POT CLAVULANATE Inactive Vital Signs Date Name [...] Negative;Positive Encounters Code Encounter Date Provider Facility CPT-20243 Level 4 Est. Patient 16:02:10 SPOOLER OPERATOR AUTOMATIC Dangelo [facility] CPT-80495 Level 3 Est. Patient 13:04:54 SPOOLER OPERATOR AUTOMATIC Dangelo [facility] CPT-18474 Level 3 Est. Patient 12:56:37 CDT Bertrand marquez [facility] CPT-41462 Level 3 Est. Patient 19:12:03 CDT Yoli tolbert MD PhD [facility] CPT-47149 Level 3 Est. Patient 14:36:01 CDT Yoli tolbert MD PhD [facility] CPT-25239 Level 2 Est. Patient 08:00:22 CDT Jcarlos dc MD [facility] CPT-09120 Level 3 Est. Patient 19:06:55 CDT Bertrand marquez [facility] CPT-51075 Level 3 Est. Patient 10:08:23 SPOOLER OPERATOR AUTOMATIC Bertrand marquez [facility] CPT-23344 Level 3 Est. Patient 16:37:54 SPOOLER OPERATOR AUTOMATIC Bertrand marquez [facility] CPT-12137 Level 3 Est. Patient 11:31:59 SPOOLER OPERATOR AUTOMATIC Bertrand marquez [facility] CPT-06528 Level 3 Est. Patient 10:20:08 CDT Gennadot villasenor [facility] CPT-60251 Level 3 Est. Patient 13:45:20 CDT Sanket Pham ina [facility] CPT-54767 Level 3 Est. Patient 12:51:06 CDT Adolfo villasenor [facility] CPT-69957 Level 3 Est. Patient 11:22:51 SPOOLER OPERATOR AUTOMATIC Yoli tolbert MD PhD [facility] CPT-01453 Level 3 Est. Patient 13:33:19 CDT Bertrand marquez [facility] Procedures Code Procedure Name Date Entry Date Standard Desc ription CPT-J0696 Rocephin 1000 mg (Ceftriaxone) 16:20:30 SPOOLER OPERATOR AUTOMATIC CPT-86403 Abx/Therapy Injection 16:20:29 SPOOLER OPERATOR AUTOMATIC CPT-J0696 Rocephin 1gm Inj Solr 15:51:59 SPOOLER OPERATOR AUTOMATIC CPT-30685 Chest 2V Frontal and Lat 15:20:28 SPOOLER OPERATOR AUTOMATIC 07/22 CPT-90365 Breathing Tx 14:51:55 SPOOLER OPERATOR AUTOMATIC CPT-22921 Breathing Tx 09:57:16 SPOOLER OPERATOR AUTOMATIC CPT-49554 Knee comp 4/> V 11:58:06 SPOOLER OPERATOR AUTOMATIC
--- OUTSIDE RECORDS SUMMARY | 2019-11-13 10:33 | XMS REPORT | Clinical Summary ---
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 sinusitis, unspecified Fatigue 780.79 Active Silvia Arnold [...] tablet by mouth twice daily CIPROFLOXACIN HCL 77237506234 No Longer Active Adriana Bender LPN Active AUGMENTIN 875-125 MG TAB 1 po BID x 10 days AMOXICILLIN- POT CLAVULANATE 24140731257 No Longer Active Adriana Bender LPN Active BACTROBAN 2 % CREAM Apply to affected area BID for up to 10 days 20 18/03/27 MUPIROCIN CALCIUM 05499283285 Active Silvia Arnold APRN Act jairo MODAFINIL 200 MG ORAL TABS Take 1/2 tab po in the am and 1/2 tab po at noon MODAFINIL 68551195405 Active Silvia Arnold APRN Active CYCLOBENZAPRINE HCL 10 MG TABS Take 1 tab TID PRN for muscle pain CYCLOBENZAPRINE HCL 15053533645 No Longer Active Bertrand Patel DO Ac tive TESSALON PERLES 100 MG CAP 1 tablet by mouth 3 times daily 07/07 BENZONATATE 82950620898 No Longer Active Bertrand Patel DO Ac tive NEBULIZER MISC use as directed NEBULIZERS 047035 49372 No Longer Active Bertrand Patel DO Active ALBUTEROL SULFATE 0.083 % NEBU SOLN one vial per nebul izer every 4-6 hours as needed ALBUTEROL SULFATE 99092697680 No Longer Active Bertrand Patel DO Active SYMBICORT 160-4.5 MCG/ACT AERO 2 puffs BID BUDESONIDE- FORMOTEROL FUMARATE 51585565252 No Longer Active Bertrand Patel DO Ac tive PREDNISONE 20 MG TAB take 3 tabs daily for 3 days , 2 tabs daily for 3 days, 1 tab daily for 3 days, 1/2 tab daily for 3 days P REDNISONE 91849278122 No Longer Active Silvia Arnold APRN Active AZITHROMYCIN 250 MG ORAL TABS Take 2 tabs po today then 1 ta b po daily AZITHROMYCIN 75099307946 No Longer Active Silvia gavin APRN Active AUGMENTIN 875-125 MG TAB 1 po BID x 10 days AMOXICILLIN- POT CLAVULANATE 65527628374 No Longer Active Adriana Bender LPN Active CHEWABLE CALCIUM 500-200-40 MG-UNT-MCG ORAL CHEW 1 chew tab bid 201 11/03/03 CALCIUM-VITAMIN D-VITAMIN K 57912991058 Active Silvia Arnold APRN Active EQ COMPLETE MULTIVIT ADULT 50+ ORAL TABS 1 tab po bid MULTIPLE VITAMINS-MINERALS 29230172544 Active Silvia Arnold APRN Act jairo HYDROCODONE-ACETAMINOPHEN 7.5-325 MG TABS TAKE ONE TAB EVERY 6 HOURS BY MOUTH NEEDED FOR PAIN HYDROCODONE-ACETAMINOPHEN 42445645962 Acti ve Lizy العلي Active LORTAB 7.5-500 MG TABS take one po Q6 hours HYDROCODONE-ACETAMINOPHEN No Longer Active Nirmal Robbins RN Active [facility] MELATONIN 5-10 MG CR-TABS Take one by mouth daily at bedtime MELATONIN-PYRIDOXINE 44125982183 No Longer Active Bertrand Patel DO Active VITAMIN E 200 UNIT CAPS 1 cap po qd VITAMIN E 316 23001692 No Longer Active Bertrand Patel DO Active B-12 1000 MCG CAPS 1 tab daily CYANOCOBALAMIN 31 629817645 No Longer Active Bertrand Patel DO Active METFORMIN HCL 500 MG TABS 1 bid METFORMIN HCL 52410967474 No Longer Active Bertrand Patel DO Active FUROSEMIDE 20 MG TABS 1 pill by mouth daily if needed for edema FUROSEMIDE 91008546755 No Longer Active Bertrand Patel DO Act jairo PRAVASTATIN SODIUM 20 MG TABS 1 tablet by mouth daily at bedtime PRAVASTATIN SODIUM 54242143841 No Longer Active Bertrand Patel DO Active AUGMENTIN 875-125 MG TABS 1 pill by mouth twice daily AMOXICILLIN-POT CLAVULANATE 64147958136 No Longer Active Yoli Mercado MD PhD Active LEVAQUIN 500 MG TABS 1 pill by mouth daily LEVO FLOXACIN 59157405629 No Longer Active Yoli Mercado MD PhD Active AMLODIPINE BESYLATE 5 MG TABS 1 tablet by mouth daily for bl ood pressure AMLODIPINE BESYLATE 19605063819 Active Keysha Jones MA Active MICARDIS 80 MG TABS 1 tablet daily for blood pressure TELMISARTAN 48584721698 Active Keysha Jones MA Active MICARDIS HCT 80-12.5 MG TABS 1 qd TELMISARTA N-HCTZ 95321975870 No Longer Active Bertrand Patel DO Active CINNAMON ALPHA LIPOIC AC CMPLX CAPS by mouth twice a d ay in AM by mouth twice a day in PM ALPHA LIPOIC [id number] CAPS 063115 71129 No Longer Active Bertrand Patel DO Active AZITHROMYCIN 500 MG SOLR 1 po q day AZITHROMYCI N 42665146968 No Longer Active Bertrand Patel DO Active CYMBALTA 30 MG CPEP 1 cap by mouth daily DULOXE CATHI HCL 98218033179 No Longer Active Bertrand Patel DO Active CYMBALTA 60 MG CPEP 1 cap by mouth daily DULOXE CATHI HCL 54078877323 Active Keysha Jones MA Active WELLBUTRIN 75 MG TABS 2 times daily BUPROPION H CL 83612814239 No Longer Active Bertrand Patel DO Active PROAIR HFA 108 (90 BASE) MCG/ACT AERS take one to two puffs po Q4-6 hour prn cough and shortness of breath ALBUTEROL SULFATE 4576876891 2 Active Silvia Arnold BIOFUELS PRODUCTION MANAGER Active AZITHROMYCIN 250 MG TABS take 2 po today then take 1 po days 2-5 AZITHROMYCIN 85124841818 No Longer Active Adolfo OSORIO Active PERMETHRIN 5 % CREA apply neck to toes tonight a nd then rinse off in morning. repeat at 7 days PERMETHRIN 73753417213 No Longer Active Adolfo OSORIO Active AMOXICILLIN 500 MG CAPS 2 po BID x 10 days AMOX ICILLIN 50284020438 No Longer Active Yoli Mercado MD PhD Active ALPRAZOLAM 0.5 MG TAB 1 tab by mouth tid ALPRAZOL AM 40147215556 Active Nitza Mullins RPT,RMA Active INSUPEN ULTRAFIN 31G X 6 MM MISC USE DIRECTED 03/04 INSULIN PEN NEEDLE 69815636105 No Longer Active Bertrand Patel DO Active TRANSDERM-SCOP 1.5 MG PT72 1 patch applied behind ear q 3 day 20 04/13/28 SCOPOLAMINE BASE 05377638529 No Longer Active Bertrand Patel DO Active MACRODANTIN 100 MG CAPS one p.o. b.i.d. x2 weeks 03/04 NITROFURANTOIN MACROCRYSTAL 56866362791 No Longer Active Bertrand Patel DO Active MACRODANTIN 100 MG CAPS one p.o. b.i.d. x2 weeks 03/04 MACRODANTIN 100 MG CAPS 4922492 NITROFURANTOIN MACROCRYSTAL Inactive TRANSDERM-SCOP 1.5 MG PT72 [...] at 7 days PERMETHRIN 5 % CREA 073607 PERMETHRIN Inactive WELLBUTRIN 75 MG TABS 2 times daily WELLBUTRIN 75 MG TABS BUPROPION HCL Inactive CYMBALTA 30 MG CPEP 1 cap by mouth daily CYMBALTA 30 MG CPEP 680271 DULOXETINE HCL Inactive AZITHROMYCIN 500 MG SOLR 1 po q day ALTA THROMYCIN 500 MG SOLR 71674569695 AZITHROMYCIN Inactive CINNAMON ALPHA LIPOIC AC CMPLX CAPS by mouth twice a d ay in AM by mouth twice a day in PM CINNAMON ALPHA LIPOIC AC CMPLX CAPS ALPHA LIPOIC [id number] CAPS Inactive MICARDIS HCT 80-12.5 MG TABS 1 qd MICARDI S HCT 80-12.5 MG TABS 252191 TELMISARTAN-HCTZ Inactive PRAVASTATIN SODIUM 20 MG TABS 1 tablet by mouth daily at bedtime PRAVASTATIN SODIUM 20 MG TABS 396467 PRAVASTATIN SODIUM Inactive FUROSEMIDE 20 MG TABS 1 pill by mouth daily if needed for edema FUROSEMIDE 20 MG TABS 013082 FUROSEMIDE Inactive METFORMIN HCL 500 MG TABS 1 bid METFORMIN HCL 500 MG TABS 741309 METFORMIN HCL Inactive B-12 1000 MCG CAPS 1 tab daily B-12 1000 MCG CAP S CYANOCOBALAMIN Inactive VITAMIN E 200 UNIT CAPS 1 cap po qd VITAMIN E 2 00 UNIT CAPS 4637217 VITAMIN E Inactive [facility] MELATONIN 5-10 MG CR-TABS Take one by mouth daily at bedtime [facility] MELATONIN 5-10 MG CR-TABS MELATONIN-PYRIDOXI NE Inactive LORTAB 7.5-500 MG TABS take one po Q6 hours LORTAB 7.5-500 MG TABS HYDROCODONE-ACETAMINOPHEN Inactive AZITHROMYCIN 250 MG ORAL TABS Take 2 tabs po today then 1 ta b po daily AZITHROMYCIN 250 MG ORAL TABS 1348693 AZITHROMYCI N Inactive SYMBICORT 160-4.5 MCG/ACT AERO 2 puffs BID SYMBICORT 160- 4.5 MCG/ACT AERO BUDESONIDE-FORMOTEROL FUMARATE Inactive ALBUTEROL SULFATE 0.083 % NEBU SOLN one vial per nebul izer every 4-6 hours as needed ALBUTEROL SULFATE 0.083 % NEBU SOLN 61895 8 ALBUTEROL SULFATE Inactive NEBULIZER MISC use as directed NEBULIZER MISC NEBULIZERS Inactive TESSALON PERLES 100 MG CAP 1 tablet by mouth 3 times daily 07/07 TESSALON PERLES 100 MG CAP 603739 BENZONATATE Inact jairo CYCLOBENZAPRINE HCL 10 MG TABS Take 1 tab TID PRN for muscle pain CYCLOBENZAPRINE HCL 10 MG TABS 452585 CYCLOBENZAPRINE HCL Inactive AUGMENTIN 875-125 MG TAB 1 po BID x 10 days AUGMENTIN 875- 125 MG TAB 143413 AMOXICILLIN-POT CLAVULANATE Inactive AMOXICILLIN 500 MG CAPS 2 po BID x 10 days AMOXICILLIN 500 MG CAPS 679383 AMOXICILLIN Inactive AZITHROMYCIN 250 MG TABS take 2 po today then take 1 po days 2-5 AZITHROMYCIN 250 MG TABS 9135232 AZITHROMYCIN Inactiv e LEVAQUIN 500 MG TABS 1 pill by mouth daily LEVAQUIN 500 MG TABS 022030 LEVOFLOXACIN Inactive AUGMENTIN 875-125 MG TABS 1 pill by mouth twice daily AUGMENTIN 875-125 MG TABS 449007 AMOXICILLIN-POT CLAVULANATE Inacti ve AUGMENTIN 875-125 MG TAB 1 po BID x 10 days AUGMENTIN 875- 125 MG TAB 039548 AMOXICILLIN-POT CLAVULANATE Inactive PREDNISONE 20 MG TAB take 3 tabs daily for 3 days , 2 tabs daily for 3 days, 1 tab daily for 3 days, 1/2 tab daily for 3 days PREDNISONE 20 MG TAB 887317 PREDNISONE Inactive CIPRO 500 MG TAB 1 tablet by mouth twice daily CIPRO 500 MG TAB 563141 CIPROFLOXACIN HCL Inactive Vital Signs Date Name [...] 5.8 % 4.3-6.0 cholesterol, serum 200 mg/dL 127-361 1039/07/22 triglyceride, serum, fasting 56 mg/dL 30-200 HDL cholesterol, serum 80 mg/dL 32-96 LDL cholesterol, serum 109 mg/dL 0-130 albumin/creatinine ratio, urine < 30 mg/g mg/g{creat} 0-2 9 TSH 1.16 m[iU]/mL 0.36-3.74 sodium, serum 142 mmol/L 957-428 8934/07/22 carbon dioxide, venous blood 33.1 mmol/L 21.0-32 [...] Negative;Positive Encounters Code Encounter Date Provider Facility CPT-40074 Level 3 Est. Patient 08:50:57 DREDGE MATE Silvia And dmitryi [facility] CPT-40517 Level 3 Est. Patient 10:04:13 CDT Bertrand marquez [facility] CPT-76132 Level 4 Est. Patient 16:02:10 DREDGE MATE Silvia And dmitriy [facility] CPT-60394 Level 3 Est. Patient 13:04:54 DREDGE MATE Dangelo [facility] CPT-02069 Level 3 Est. Patient 12:56:37 CDT Bertrand marquez [facility] CPT-27770 Level 3 Est. Patient 19:12:03 CDT Yoli tolbert MD PhD [facility] CPT-79625 Level 3 Est. Patient 14:36:01 CDT Yoli tolbert MD PhD [facility] CPT-67708 Level 2 Est. Patient 08:00:22 CDT Jcarlos dc MD [facility] CPT-28014 Level 3 Est. Patient 19:06:55 CDT Bertrand marquez [facility] CPT-31187 Level 3 Est. Patient 10:08:23 DREDGE MATE Bertrand marquez [facility] CPT-96511 Level 3 Est. Patient 16:37:54 DREDGE MATE Bertrand marquez [facility] CPT-22496 Level 3 Est. Patient 11:31:59 DREDGE MATE Bertrand marquez [facility] CPT-34271 Level 3 Est. Patient 10:20:08 CDT Adolfo villasenor [facility] CPT-60433 Level 3 Est. Patient 13:45:20 CDT Sanket buckley [facility] CPT-99004 Level 3 Est. Patient 12:51:06 CDT Adolfo villasenor [facility] CPT-10242 Level 3 Est. Patient 11:22:51 DREDGE MATE Yoli tolbert MD [facility] CPT-34220 Level 3 Est. Patient 13:33:19 CDT Bertrand marquez [facility] Procedures Code Procedure Name Date Entry Date Standard Desc ription CPT-91442 Wound Culture - LAB USE ONLY 15:45:25 CDT 2 CPT-36030 Venipuncture Draw Fee 10:23:01 CDT CPT-J0696 Rocephin 1000 mg (Ceftriaxone) 16:20:30 DREDGE MATE CPT-27582 Abx/Therapy Injection 16:20:29 DREDGE MATE CPT-J0696 Rocephin 1gm Inj Solr 15:51:59 DREDGE MATE CPT-13942 Chest 2V Frontal and Lat 15:20:28 DREDGE MATE 07/22 CPT-64155 Breathing Tx 14:51:55 DREDGE MATE CPT-12360 Breathing Tx 09:57:16 DREDGE MATE CPT-39624 Knee comp 4/> V 11:58:06 DREDGE MATE
--- OUTSIDE RECORDS SUMMARY | 2019-11-13 10:33 | XMS REPORT | Clinical Summary ---
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 sinusitis, unspecified Fatigue 780.79 Active Silvia [...] tablet by mouth twice daily CIPROFLOXACIN HCL 47017733177 No Longer Active Adriana Bender LPN Active AUGMENTIN 875-125 MG TAB 1 po BID x 10 days AMOXICILLIN- POT CLAVULANATE 46609540001 No Longer Active Adriana Bender LPN Active BACTROBAN 2 % CREAM Apply to affected area BID for up to 10 days 20 18/03/27 MUPIROCIN CALCIUM 57241817403 Active Silvia Arnold APRN Act jairo MODAFINIL 200 MG ORAL TABS Take 1/2 tab po in the am and 1/2 tab po at noon MODAFINIL 44408504792 Active Silvia Arnold APRN Active CYCLOBENZAPRINE HCL 10 MG TABS Take 1 tab TID PRN for muscle pain CYCLOBENZAPRINE HCL 62265195490 No Longer Active Bertrand Patel DO Ac tive TESSALON PERLES 100 MG CAP 1 tablet by mouth 3 times daily 07/07 BENZONATATE 91403327696 No Longer Active Bertrand Patel DO Ac tive NEBULIZER MISC use as directed NEBULIZERS 678415 85208 No Longer Active Bertrand Patel DO Active ALBUTEROL SULFATE 0.083 % NEBU SOLN one vial per nebul izer every 4-6 hours as needed ALBUTEROL SULFATE 24910511780 No Longer Active Bertrand Patel DO Active SYMBICORT 160-4.5 MCG/ACT AERO 2 puffs BID BUDESONIDE- FORMOTEROL FUMARATE 06129714578 No Longer Active Bertrand Patel DO Ac tive PREDNISONE 20 MG TAB take 3 tabs daily for 3 days , 2 tabs daily for 3 days, 1 tab daily for 3 days, 1/2 tab daily for 3 days P REDNISONE 95414236345 No Longer Active Silvia Arnold APRN Active AZITHROMYCIN 250 MG ORAL TABS Take 2 tabs po today then 1 ta b po daily AZITHROMYCIN 21699145843 No Longer Active Silvia gavin APRN Active AUGMENTIN 875-125 MG TAB 1 po BID x 10 days AMOXICILLIN- POT CLAVULANATE 16722777875 No Longer Active Adriana Bender LPN Active CHEWABLE CALCIUM 500-200-40 MG-UNT-MCG ORAL CHEW 1 chew tab bid 201 11/03/03 CALCIUM-VITAMIN D-VITAMIN K 59941666888 Active Silvia Arnold APRN Active EQ COMPLETE MULTIVIT ADULT 50+ ORAL TABS 1 tab po bid MULTIPLE VITAMINS-MINERALS 41763733789 Active Silvia Arnold APRN Act jairo HYDROCODONE-ACETAMINOPHEN 7.5-325 MG TABS TAKE ONE TAB EVERY 6 HOURS BY MOUTH NEEDED FOR PAIN HYDROCODONE-ACETAMINOPHEN 84332121802 Acti ve Lizy العلي Active LORTAB 7.5-500 MG TABS take one po Q6 hours HYDROCODONE-ACETAMINOPHEN No Longer Active Nirmal Robbins RN Active [facility] MELATONIN 5-10 MG CR-TABS Take one by mouth daily at bedtime MELATONIN-PYRIDOXINE 13535619812 No Longer Active Bertrand Patel DO Active VITAMIN E 200 UNIT CAPS 1 cap po qd VITAMIN E 316 09733008 No Longer Active Bertrand Patel DO Active B-12 1000 MCG CAPS 1 tab daily CYANOCOBALAMIN 31 498512462 No Longer Active Bertrand Patel DO Active METFORMIN HCL 500 MG TABS 1 bid METFORMIN HCL 06298322299 No Longer Active Bertrand Ptael DO Active FUROSEMIDE 20 MG TABS 1 pill by mouth daily if needed for edema FUROSEMIDE 30596884966 No Longer Active Bertrand Patel DO Act jairo PRAVASTATIN SODIUM 20 MG TABS 1 tablet by mouth daily at bedtime PRAVASTATIN SODIUM 60525092997 No Longer Active Bertrand Patel DO Active AUGMENTIN 875-125 MG TABS 1 pill by mouth twice daily AMOXICILLIN-POT CLAVULANATE 59086751035 No Longer Active Yoli Mercado MD PhD Active LEVAQUIN 500 MG TABS 1 pill by mouth daily LEVO FLOXACIN 71883537104 No Longer Active Yoli Mercado MD PhD Active AMLODIPINE BESYLATE 5 MG TABS 1 tablet by mouth daily for bl ood pressure AMLODIPINE BESYLATE 03184444123 Active Keysha Jones MA Active MICARDIS 80 MG TABS 1 tablet daily for blood pressure TELMISARTAN 10396718427 Active Keysha Jones MA Active MICARDIS HCT 80-12.5 MG TABS 1 qd TELMISARTA N-HCTZ 95022787062 No Longer Active Bertrand Patel DO Active CINNAMON ALPHA LIPOIC AC CMPLX CAPS by mouth twice a d ay in AM by mouth twice a day in PM ALPHA LIPOIC [id number] CAPS 137385 51922 No Longer Active Bertrand Patel DO Active AZITHROMYCIN 500 MG SOLR 1 po q day AZITHROMYCI N 50018953089 No Longer Active Bertrand Patel DO Active CYMBALTA 30 MG CPEP 1 cap by mouth daily DULOXE CATHI HCL 72050750280 No Longer Active Bertrand Patel DO Active CYMBALTA 60 MG CPEP 1 cap by mouth daily DULOXE CATHI HCL 38358193040 Active Keysha Jones MA Active WELLBUTRIN 75 MG TABS 2 times daily BUPROPION H CL 24019760912 No Longer Active Bertrand Patel DO Active PROAIR HFA 108 (90 BASE) MCG/ACT AERS take one to two puffs po Q4-6 hour prn cough and shortness of breath ALBUTEROL SULFATE 6118087528 2 Active Silvia Arnold 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 repeat at 7 days PERMETHRIN 44694781799 No Longer Active Adolfo OSORIO Active AMOXICILLIN 500 MG CAPS 2 po BID x 10 days AMOX ICILLIN 89073117609 No Longer Active Yoli Mercado MD PhD Active ALPRAZOLAM 0.5 MG TAB 1 tab by mouth tid ALPRAZOL AM 01039706771 Active Nitza Mullins RPT,RMA Active INSUPEN ULTRAFIN 31G X 6 MM MISC USE DIRECTED 03/04 INSULIN PEN NEEDLE 42495712802 No Longer Active Bertrand Patel DO Active TRANSDERM-SCOP 1.5 MG PT72 1 patch applied behind ear q 3 day 20 04/13/28 SCOPOLAMINE BASE 38084443834 No Longer Active Bertrand Patel DO Active MACRODANTIN 100 MG CAPS one p.o. b.i.d. x2 weeks 03/04 NITROFURANTOIN MACROCRYSTAL 04920934956 No Longer Active Bertrand Patel DO Active MACRODANTIN 100 MG CAPS one p.o. b.i.d. x2 weeks 03/04 MACRODANTIN 100 MG CAPS 7755484 NITROFURANTOIN MACROCRYSTAL Inactive TRANSDERM-SCOP 1.5 MG PT72 [...] at 7 days PERMETHRIN 5 % CREA 609703 PERMETHRIN Inactive WELLBUTRIN 75 MG TABS 2 times daily WELLBUTRIN 75 MG TABS BUPROPION HCL Inactive CYMBALTA 30 MG CPEP 1 cap by mouth daily CYMBALTA 30 MG CPEP 277649 DULOXETINE HCL Inactive AZITHROMYCIN 500 MG SOLR 1 po q day ALTA THROMYCIN 500 MG SOLR 75054604827 AZITHROMYCIN Inactive CINNAMON ALPHA LIPOIC AC CMPLX CAPS by mouth twice a d ay in AM by mouth twice a day in PM CINNAMON ALPHA LIPOIC AC CMPLX CAPS ALPHA LIPOIC [id number] CAPS Inactive MICARDIS HCT 80-12.5 MG TABS 1 qd MICARDI S HCT 80-12.5 MG TABS 841828 TELMISARTAN-HCTZ Inactive PRAVASTATIN SODIUM 20 MG TABS 1 tablet by mouth daily at bedtime PRAVASTATIN SODIUM 20 MG TABS 417283 PRAVASTATIN SODIUM Inactive FUROSEMIDE 20 MG TABS 1 pill by mouth daily if needed for edema FUROSEMIDE 20 MG TABS 565483 FUROSEMIDE Inactive METFORMIN HCL 500 MG TABS 1 bid METFORMIN HCL 500 MG TABS 681220 METFORMIN HCL Inactive B-12 1000 MCG CAPS 1 tab daily B-12 1000 MCG CAP S CYANOCOBALAMIN Inactive VITAMIN E 200 UNIT CAPS 1 cap po qd VITAMIN E 2 00 UNIT CAPS 6407297 VITAMIN E Inactive [facility] MELATONIN 5-10 MG CR-TABS Take one by mouth daily at bedtime [facility] MELATONIN 5-10 MG CR-TABS MELATONIN-PYRIDOXI NE Inactive LORTAB 7.5-500 MG TABS take one po Q6 hours LORTAB 7.5-500 MG TABS HYDROCODONE-ACETAMINOPHEN Inactive AZITHROMYCIN 250 MG ORAL TABS Take 2 tabs po today then 1 ta b po daily AZITHROMYCIN 250 MG ORAL TABS 9259453 AZITHROMYCI N Inactive SYMBICORT 160-4.5 MCG/ACT AERO 2 puffs BID SYMBICORT 160- 4.5 MCG/ACT AERO BUDESONIDE-FORMOTEROL FUMARATE Inactive ALBUTEROL SULFATE 0.083 % NEBU SOLN one vial per nebul izer every 4-6 hours as needed ALBUTEROL SULFATE 0.083 % NEBU SOLN 77201 8 ALBUTEROL SULFATE Inactive NEBULIZER MISC use as directed NEBULIZER MISC NEBULIZERS Inactive TESSALON PERLES 100 MG CAP 1 tablet by mouth 3 times daily 07/07 TESSALON PERLES 100 MG CAP 181050 BENZONATATE Inact jairo CYCLOBENZAPRINE HCL 10 MG TABS Take 1 tab TID PRN for muscle pain CYCLOBENZAPRINE HCL 10 MG TABS 231924 CYCLOBENZAPRINE HCL Inactive AUGMENTIN 875-125 MG TAB 1 po BID x 10 days AUGMENTIN 875- 125 MG TAB 455486 AMOXICILLIN-POT CLAVULANATE Inactive AMOXICILLIN 500 MG CAPS 2 po BID x 10 days AMOXICILLIN 500 MG CAPS 345351 AMOXICILLIN Inactive AZITHROMYCIN 250 MG TABS take 2 po today then take 1 po days 2-5 AZITHROMYCIN 250 MG TABS 9769883 AZITHROMYCIN Inactiv e LEVAQUIN 500 MG TABS 1 pill by mouth daily LEVAQUIN 500 MG TABS 447055 LEVOFLOXACIN Inactive AUGMENTIN 875-125 MG TABS 1 pill by mouth twice daily AUGMENTIN 875-125 MG TABS 099703 AMOXICILLIN-POT CLAVULANATE Inacti ve AUGMENTIN 875-125 MG TAB 1 po BID x 10 days AUGMENTIN 875- 125 MG TAB 223421 AMOXICILLIN-POT CLAVULANATE Inactive PREDNISONE 20 MG TAB take 3 tabs daily for 3 days , 2 tabs daily for 3 days, 1 tab daily for 3 days, 1/2 tab daily for 3 days PREDNISONE 20 MG TAB 989858 PREDNISONE Inactive CIPRO 500 MG TAB 1 tablet by mouth twice daily CIPRO 500 MG TAB 256703 CIPROFLOXACIN HCL Inactive Vital Signs Date Name [...] 11 .6-14.8 platelet count 339 10^3/MM^3 10*3/mm3 802-259 7844/02/19 erythrocyte (RBC) count 3.95 10^6/MM^3 10*6/mm3 4.04-5.4 [...] 0.40 mg/dL 0.00-1.00 sodium, serum 142 mmol/L 779-724 2896/07/22 carbon dioxide, venous blood 33.1 mmol/L 21.0-32 .0 potassium, serum 4.6 mmol/L 3.5-5.2 chloride, serum 105 mmol/L 98-107 blood glucose 96 mg/dL 65-110 urea nitrogen, blood 16 mg/dL 7-18 creatinine, serum 0.69 mg/dL 0.55-1.30 alanine aminotransferase (SGPT), serum 22 U/L 12-78 aspartate aminotransferase (SGOT), serum 18 U/L 15-37 hemoglobin A1C, blood, as % of total hemoglobin 5.8 % 4.3-6.0 cholesterol, serum 200 mg/dL 280-748 8334/07/22 triglyceride, serum, fasting 56 mg/dL 30-200 HDL [...] Negative;Positive Encounters Code Encounter Date Provider Facility CPT-33571 Level 3 Est. Patient 08:50:57 COMBINATION BUILDING INSPECTOR Silvia And dmitriy [facility] CPT-35034 Level 3 Est. Patient 10:04:13 CDT Bertrand marquez [facility] CPT-66116 Level 4 Est. Patient 16:02:10 COMBINATION BUILDING INSPECTOR Silvia And dmitriy [facility] CPT-84963 Level 3 Est. Patient 13:04:54 COMBINATION BUILDING INSPECTOR Dangelo [facility] CPT-96100 Level 3 Est. Patient 12:56:37 CDT Bertrand marquez [facility] CPT-24632 Level 3 Est. Patient 19:12:03 CDT Yoli tolbert MD PhD [facility] CPT-92438 Level 3 Est. Patient 14:36:01 CDT Yoli tolbert MD PhD [facility] CPT-53968 Level 2 Est. Patient 08:00:22 CDT Jcarlos dc MD [facility] CPT-46540 Level 3 Est. Patient 19:06:55 CDT Bertrand marquez [facility] CPT-14114 Level 3 Est. Patient 10:08:23 COMBINATION BUILDING INSPECTOR Bertrand marquez [facility] CPT-48367 Level 3 Est. Patient 16:37:54 COMBINATION BUILDING INSPECTOR Bertrand marquez [facility] CPT-66980 Level 3 Est. Patient 11:31:59 COMBINATION BUILDING INSPECTOR Bertrand marquez [facility] CPT-56729 Level 3 Est. Patient 10:20:08 CDT Adolfo villasenor [facility] CPT-71196 Level 3 Est. Patient 13:45:20 CDT Sanket buckley [facility] CPT-49633 Level 3 Est. Patient 12:51:06 CDT Adolfo villasenor [facility] CPT-58719 Level 3 Est. Patient 11:22:51 COMBINATION BUILDING INSPECTOR Yoli tolbert MD [facility] CPT-27689 Level 3 Est. Patient 13:33:19 CDT Bertrand marquez [facility] Procedures Code Procedure Name Date Entry Date Standard Desc ription CPT-13208 Wound Culture - LAB USE ONLY 15:45:25 CDT 2 CPT-74064 Venipuncture Draw Fee 10:23:01 CDT CPT-J0696 Rocephin 1000 mg (Ceftriaxone) 16:20:30 COMBINATION BUILDING INSPECTOR CPT-86974 Abx/Therapy Injection 16:20:29 COMBINATION BUILDING INSPECTOR CPT-J0696 Rocephin 1gm Inj Solr 15:51:59 COMBINATION BUILDING INSPECTOR CPT-56787 Chest 2V Frontal and Lat 15:20:28 COMBINATION BUILDING INSPECTOR 07/22 CPT-82275 Breathing Tx 14:51:55 COMBINATION BUILDING INSPECTOR CPT-41170 Breathing Tx 09:57:16 COMBINATION BUILDING INSPECTOR CPT-17914 Knee comp 4/> V 11:58:06 COMBINATION BUILDING INSPECTOR
--- OUTSIDE RECORDS SUMMARY | 2019-11-13 10:34 | XMS REPORT | Clinical Summary ---
Author Author Admin, Enrique Adamson Organization [employer] Address Unknown Phone Unavailable Allergies, Adverse Reactions, [...] NDC Status Provider Patient Instruction VITAMIN D3 21003 UNIT CAPS 1 pill Week x 4 months for vitamin D deficiency/osteoporosis CHOLECALCIFEROL 48935903299 Active Darlyn Monzon Active BENZONATATE 200 MG ORAL CAPS 1 three times a day as needed for c ough BENZONATATE 09601920540 Active Ike Deluna MD Acti ve ZITHROMAX Z-MARTIN 250 MG TABS 2 today and then 1 daily for 4 days 201 12/01/06 AZITHROMYCIN 69920447895 Active Ike eDluna MD Active ADDERALL 10 MG ORAL TABS 1 tab twice daily AMPHETAMINE-DEXTROAMPHETAMINE 13103670482 Active Ike Deluna MD Active BACTROBAN 2 % CREAM Apply to affected area BID for up to 10 days MUPIROCIN CALCIUM 01050493492 No Longer Active Ike Deluna MD Active CIPRO 500 MG TAB 1 tablet by mouth twice daily CIPROFLOXACIN HCL 43759527301 No Longer Active Adriana Bender LPN Active AUGMENTIN 875-125 MG TAB 1 po BID x 10 days AMOXICILLIN- POT CLAVULANATE 44062623048 No Longer Active Adriana Bender LPN Active MODAFINIL 200 MG ORAL TABS Take 1/2 tab po in the am and 1/2 tab po at noon MODAFINIL 07717844533 Active Bertrand Patel DO Ac tive CYCLOBENZAPRINE HCL 10 MG TABS Take 1 tab TID PRN for muscle pain CYCLOBENZAPRINE HCL 53155180297 No Longer Active Bertrand Patel DO Ac tive TESSALON PERLES 100 MG CAP 1 tablet by mouth 3 times daily 07/07 BENZONATATE 94470788207 No Longer Active Bertrand Patel DO Ac tive NEBULIZER MISC use as directed NEBULIZERS 124089 54410 No Longer Active Bertrand Patel DO Active ALBUTEROL SULFATE 0.083 % NEBU SOLCammy one vial per nebul izer every 4-6 hours as needed ALBUTEROL SULFATE 32244187543 No Longer Active Bertrand Patel DO Active SYMBICORT 160-4.5 MCG/ACT AERO 2 puffs BID BUDESONIDE- FORMOTEROL FUMARATE 06466541883 No Longer Active Bertrand Patel DO Ac tive PREDNISONE 20 MG TAB take 3 tabs daily for 3 days , 2 tabs daily for 3 days, 1 tab daily for 3 days, 1/2 tab daily for 3 days P REDNISONE 87293537938 No Longer Active Silvia Arnold APRN Active AZITHROMYCIN 250 MG ORAL TABS Take 2 tabs po today then 1 ta b po daily AZITHROMYCIN 98464080470 No Longer Active Silvia Jorge leslye INSOLE RASPER Active AUGMENTIN 875-125 MG TAB 1 po BID x 10 days AMOXICILLIN- POT CLAVULANATE 67695853791 No Longer Active Adriana Bender LPN Active CHEWABLE CALCIUM 500-200-40 MG-UNT-MCG ORAL CHEW 1 chew tab bid 201 11/03/03 CALCIUM-VITAMIN D-VITAMIN K 56832393235 Active Silvia Arnold APRN Active EQ COMPLETE MULTIVIT ADULT 50+ ORAL TABS 1 tab po bid MULTIPLE VITAMINS-MINERALS 83793238357 Active Silvia Arnold APRN Act jairo HYDROCODONE-ACETAMINOPHEN 7.5-325 MG TABS TAKE ONE TAB EVERY 6 HOURS BY MOUTH NEEDED FOR PAIN HYDROCODONE-ACETAMINOPHEN 76593587048 Acti ve Bertrand Patel DO Active LORTAB 7.5-500 MG TABS take one po Q6 hours HYDROCODONE-ACETAMINOPHEN No Longer Active Nirmal Robbins RN Active [facility] MELATONIN 5-10 MG CR-TABS Take one by mouth daily at bedtime MELATONIN-PYRIDOXINE 20019853344 No Longer Active Bertrand Patel DO Active VITAMIN E 200 UNIT CAPS 1 cap po qd VITAMIN E 316 60926446 No Longer Active Bertrand Patel DO Active B-12 1000 MCG CAPS 1 tab daily CYANOCOBALAMIN 31 677494230 No Longer Active Bertrand Patel DO Active METFORMIN HCL 500 MG TABS 1 bid METFORMIN HCL 44446733359 No Longer Active Bertrand Patel DO Active FUROSEMIDE 20 MG TABS 1 pill by mouth daily if needed for edema FUROSEMIDE 73318149596 No Longer Active Bertrand Patel DO Act jairo PRAVASTATIN SODIUM 20 MG TABS 1 tablet by mouth daily at bedtime PRAVASTATIN SODIUM 34425927339 No Longer Active Bertrand Patel DO Active AUGMENTIN 875-125 MG TABS 1 pill by mouth twice daily AMOXICILLIN-POT CLAVULANATE 70665607182 No Longer Active Yoli Mercado MD PhD Active LEVAQUIN 500 MG TABS 1 pill by mouth daily LEVO FLOXACIN 20501830264 No Longer Active Yoli Mercado MD PhD Active AMLODIPINE BESYLATE 5 MG TABS 1 tablet by mouth daily for bl ood pressure AMLODIPINE BESYLATE 91842111417 Active Darlyn Monzon Active MICARDIS 80 MG TABS 1 tablet daily for blood pressure TELMISARTAN 46963785448 Active Bertrand Patel DO Active MICARDIS HCT 80-12.5 MG TABS 1 qd TELMISARTA N-HCTZ 01569634913 No Longer Active Bertrand Patel DO Active CINNAMON ALPHA LIPOIC AC CMPLX CAPS by mouth twice a d ay in AM by mouth twice a day in PM ALPHA LIPOIC [id number] CAPS 087332 63470 No Longer Active Bertrand Patel DO Active AZITHROMYCIN 500 MG SOLR 1 po q day AZITHROMYCI N 83729100815 No Longer Active Bertrand Patel DO Active CYMBALTA 30 MG CPEP 1 cap by mouth daily DULOXE CATHI HCL 79440230350 No Longer Active Bertrand Patel DO Active CYMBALTA 60 MG CPEP 1 cap by mouth daily DULOXE CATHI HCL 28352093906 Active Keysha Jones MA Active WELLBUTRIN 75 MG TABS 2 times daily BUPROPION H CL 28319153450 No Longer Active Bertrand W Jorge DO Active PROAIR HFA 108 (90 BASE) MCG/ACT AERS take one to two puffs po Q4-6 hour prn cough and shortness of breath ALBUTEROL SULFATE 6069271375 2 Active Silvia Arnodl INSOLE RASPER Active AZITHROMYCIN 250 MG TABS take 2 po today then take 1 po days 2-5 AZITHROMYCIN 76865875937 No Longer Active Adolfo OSORIO Active PERMETHRIN 5 % CREA apply neck to toes tonight a nd then rinse off in morning. repeat at 7 days PERMETHRIN 51858112165 No Longer Active Adolfo OSORIO Active AMOXICILLIN 500 MG CAPS 2 po BID x 10 days AMOX ICILLIN 39399309364 No Longer Active Yoli Mercado MD PhD Active ALPRAZOLAM 0.5 MG TAB 1 tab by mouth tid ALPRAZOL AM 06690148382 Active Nitza Mullins ANIMAL NUTRITION TEACHER Active INSUPEN ULTRAFIN 31G X 6 MM MISC USE DIRECTED 03/04 INSULIN PEN NEEDLE 01072658457 No Longer Active Bertrand Patel DO Active TRANSDERM-SCOP 1.5 MG PT72 1 patch applied behind ear q 3 day 20 04/13/28 SCOPOLAMINE BASE 82840508036 No Longer Active Bertrand Patel DO Active MACRODANTIN 100 MG CAPS one p.o. b.i.d. x2 weeks 03/04 NITROFURANTOIN MACROCRYSTAL 86434500725 No Longer Active Bertrand Patel DO Active MACRODANTIN 100 MG CAPS one p.o. b.i.d. x2 weeks 03/04 MACRODANTIN 100 MG CAPS 6080463 NITROFURANTOIN MACROCRYSTAL Inactive TRANSDERM-SCOP 1.5 MG PT72 [...] at 7 days PERMETHRIN 5 % CREA 050938 PERMETHRIN Inactive WELLBUTRIN 75 MG TABS 2 times daily WELLBUTRIN 75 MG TABS BUPROPION HCL Inactive CYMBALTA 30 MG CPEP 1 cap by mouth daily CYMBALTA 30 MG CPEP 130242 DULOXETINE HCL Inactive AZITHROMYCIN 500 MG SOLR 1 po q day ALTA THROMYCIN 500 MG SOLR 48696705060 AZITHROMYCIN Inactive CINNAMON ALPHA LIPOIC AC CMPLX CAPS by mouth twice a d ay in AM by mouth twice a day in PM CINNAMON ALPHA LIPOIC AC CMPLX CAPS ALPHA LIPOIC [id number] CAPS Inactive MICARDIS HCT 80-12.5 MG TABS 1 qd MICARDI S HCT 80-12.5 MG TABS 756714 TELMISARTAN-HCTZ Inactive PRAVASTATIN SODIUM 20 MG TABS 1 tablet by mouth daily at bedtime PRAVASTATIN SODIUM 20 MG TABS 512025 PRAVASTATIN SODIUM Inactive FUROSEMIDE 20 MG TABS 1 pill by mouth daily if needed for edema FUROSEMIDE 20 MG TABS 953206 FUROSEMIDE Inactive METFORMIN HCL 500 MG TABS 1 bid METFORMIN HCL 500 MG TABS 510620 METFORMIN HCL Inactive B-12 1000 MCG CAPS 1 tab daily B-12 1000 MCG CAP S CYANOCOBALAMIN Inactive VITAMIN E 200 UNIT CAPS 1 cap po qd VITAMIN E 2 00 UNIT CAPS 3881223 VITAMIN E Inactive [facility] MELATONIN 5-10 MG CR-TABS Take one by mouth daily at bedtime [facility] MELATONIN 5-10 MG CR-TABS MELATONIN-PYRIDOXI NE Inactive LORTAB 7.5-500 MG TABS take one po Q6 hours LORTAB 7.5-500 MG TABS HYDROCODONE-ACETAMINOPHEN Inactive AZITHROMYCIN 250 MG ORAL TABS Take 2 tabs po today then 1 ta b po daily AZITHROMYCIN 250 MG ORAL TABS 4817301 AZITHROMYCI N Inactive SYMBICORT 160-4.5 MCG/ACT AERO 2 puffs BID SYMBICORT 160- 4.5 MCG/ACT AERO BUDESONIDE-FORMOTEROL FUMARATE Inactive ALBUTEROL SULFATE 0.083 % NEBU SOLN one vial per nebul izer every 4-6 hours as needed ALBUTEROL SULFATE 0.083 % NEBU SOLN 43322 8 ALBUTEROL SULFATE Inactive NEBULIZER MISC use as directed NEBULIZER MISC NEBULIZERS Inactive TESSALON PERLES 100 MG CAP 1 tablet by mouth 3 times daily 07/07 TESSALON PERLES 100 MG CAP 816741 BENZONATATE Inact jairo CYCLOBENZAPRINE HCL 10 MG TABS Take 1 tab TID PRN for muscle pain CYCLOBENZAPRINE HCL 10 MG TABS 788865 CYCLOBENZAPRINE HCL Inactive AUGMENTIN 875-125 MG TAB 1 po BID x 10 days AUGMENTIN 875- 125 MG TAB 990138 AMOXICILLIN-POT CLAVULANATE Inactive BACTROBAN 2 % CREAM Apply to affected area BID for up to 10 days BACTROBAN 2 % CREAM 304675 MUPIROCIN CALCIUM Inactive AMOXICILLIN 500 MG CAPS 2 po BID x 10 days AMOXICILLIN 500 MG CAPS 336093 AMOXICILLIN Inactive AZITHROMYCIN 250 MG TABS take 2 po today then take 1 po days 2-5 AZITHROMYCIN 250 MG TABS 6719217 AZITHROMYCIN Inactiv e LEVAQUIN 500 MG TABS 1 pill by mouth daily LEVAQUIN 500 MG TABS 239588 LEVOFLOXACIN Inactive AUGMENTIN 875-125 MG TABS 1 pill by mouth twice daily AUGMENTIN 875-125 MG TABS 309191 AMOXICILLIN-POT CLAVULANATE Inacti ve AUGMENTIN 875-125 MG TAB 1 po BID x 10 days AUGMENTIN 875- 125 MG TAB 615348 AMOXICILLIN-POT CLAVULANATE Inactive PREDNISONE 20 MG TAB take 3 tabs daily for 3 days , 2 tabs daily for 3 days, 1 tab daily for 3 days, 1/2 tab daily for 3 days PREDNISONE 20 MG TAB 227060 PREDNISONE Inactive CIPRO 500 MG TAB 1 tablet by mouth twice daily CIPRO 500 MG TAB 115732 CIPROFLOXACIN HCL Inactive Vital Signs Date Name [...] 4.3-6.0 Encounters Code Encounter Date Provider Facility CPT-66278 Level 4 Est. Patient 12:31:54 CDT Bertrand marquez [facility] CPT-10010 Level 3 Est. Patient 11:27:00 HYDRO STATION OPERATOR Ike Deluna MD [facility]-38691 Level 3 Est. Patient 08:50:57 HYDRO STATION OPERATOR Dangelo BARAJAS [facility] CPT-05305 Level 3 Est. Patient 10:04:13 CDT Bertrand marquez [facility]-64136 Level 4 Est. Patient 16:02:10 HYDRO STATION OPERATOR Dangelo INSOLE RASPER [facility] CPT-31341 Level 3 Est. Patient 13:04:54 HYDRO STATION OPERATOR Dangelo INSOLE RASPER [facility]-87390 Level 3 Est. Patient 12:56:37 CDT Bertrand marquez [facility] CPT-48877 Level 3 Est. Patient 19:12:03 CDT Yoli tolbert MD PhD [facility] CPT-18219 Level 3 Est. Patient 14:36:01 CDT Yoli tolbert MD [facility]-59031 Level 2 Est. Patient 08:00:22 CDT Jcarlos dc MD [facility]-91236 Level 3 Est. Patient 19:06:55 CDT Bertrand marquez [facility] CPT-92340 Level 3 Est. Patient 10:08:23 HYDRO STATION OPERATOR Bertrand marquez [facility]-25023 Level 3 Est. Patient 16:37:54 HYDRO STATION OPERATOR Bertrand marquez [facility] CPT-95990 Level 3 Est. Patient 11:31:59 HYDRO STATION OPERATOR Bertrand marquez [facility] CPT-53048 Level 3 Est. Patient 10:20:08 CDT Adolfo OSOIRO [facility]-81242 Level 3 Est. Patient 13:45:20 CDT Sanket Ankit buckley [facility] CPT-12378 Level 3 Est. Patient 12:51:06 CDT Adolfo Monroyridge halljacklyn [facility] CPT-02275 Level 3 Est. Patient 11:22:51 HYDRO STATION OPERATOR Yoli tolbert MD PhD [facility] CPT-97620 Level 3 Est. Patient 13:33:19 CDT eBrtrand Sabillon ee DO [facility] Procedures Code Procedure Name Date Entry Date Standard Desc ription CPT-62163 Wound Culture - LAB USE ONLY 15:45:25 CDT 2 CPT-17935 Venipuncture Draw Fee 10:23:01 CDT CPT-J0696 Rocephin 1000 mg (Ceftriaxone) 16:20:30 HYDRO STATION OPERATOR CPT-81912 Abx/Therapy Injection 16:20:29 HYDRO STATION OPERATOR CPT-J0696 Rocephin 1gm Inj Solr 15:51:59 HYDRO STATION OPERATOR CPT-88469 Chest 2V Frontal and Lat 15:20:28 HYDRO STATION OPERATOR 07/22 CPT-63253 Breathing Tx 14:51:55 HYDRO STATION OPERATOR CPT-09194 Breathing Tx 09:57:16 HYDRO STATION OPERATOR CPT-32870 Knee comp 4/> V 11:58:06 HYDRO STATION OPERATOR
--- OUTSIDE RECORDS SUMMARY | 2019-11-13 10:34 | XMS REPORT | Clinical Summary ---
Author Author Admin, Enrique Adamson Organization [employer] Address Unknown Phone Unavailable Allergies, Adverse Reactions, [...] ear Obstructive sleep apnea 327.23 Active Bertrand eRdmond DO Obstructive sleep apnea (adult) (pediatric) Fatigue [...] NDC Status Provider Patient Instruction VITAMIN D3 65728 UNIT CAPS 1 pill Week x 4 months for vitamin D deficiency/osteoporosis CHOLECALCIFEROL 44449342320 Active Darlyn Monzon Active BENZONATATE 200 MG ORAL CAPS 1 three times a day as needed for c ough BENZONATATE 89978351358 Active Ike Deluna MD Acti ve ZITHROMAX Z-MARTIN 250 MG TABS 2 today and then 1 daily for 4 days 201 12/01/06 AZITHROMYCIN 45094355173 Active Ike Deluna MD Active ADDERALL 10 MG ORAL TABS 1 tab twice daily AMPHETAMINE-DEXTROAMPHETAMINE 36985746684 Active Ike Deluna MD Active BACTROBAN 2 % CREAM Apply to affected area BID for up to 10 days MUPIROCIN CALCIUM 64023733563 No Longer Active Ike Deluna MD Active CIPRO 500 MG TAB 1 tablet by mouth twice daily CIPROFLOXACIN HCL 93347643344 No Longer Active Adriana Bender LPN Active AUGMENTIN 875-125 MG TAB 1 po BID x 10 days AMOXICILLIN- POT CLAVULANATE 23177824454 No Longer Active Adriana Bender LPN Active MODAFINIL 200 MG ORAL TABS Take 1/2 tab po in the am and 1/2 tab po at noon MODAFINIL 39224310491 Active Darlyn Monzon A ctive CYCLOBENZAPRINE HCL 10 MG TABS Take 1 tab TID PRN for muscle pain CYCLOBENZAPRINE HCL 09546058711 No Longer Active Bertrand Patel DO Ac tive TESSALON PERLES 100 MG CAP 1 tablet by mouth 3 times daily 07/07 BENZONATATE 57224089725 No Longer Active Bertrand Patel DO Ac tive NEBULIZER MISC use as directed NEBULIZERS 083555 27275 No Longer Active Bertrand Patel DO Active ALBUTEROL SULFATE 0.083 % NEBU SOLN one vial per nebul izer every 4-6 hours as needed ALBUTEROL SULFATE 07461766338 No Longer Active Bertrand Patel DO Active SYMBICORT 160-4.5 MCG/ACT AERO 2 puffs BID BUDESONIDE- FORMOTEROL FUMARATE 62735617803 No Longer Active Bertrand Patel DO Ac tive PREDNISONE 20 MG TAB take 3 tabs daily for 3 days , 2 tabs daily for 3 days, 1 tab daily for 3 days, 1/2 tab daily for 3 days P REDNISONE 28941400428 No Longer Active Silvia Arnold APRN Active AZITHROMYCIN 250 MG ORAL TABS Take 2 tabs po today then 1 ta b po daily AZITHROMYCIN 33863527765 No Longer Active Silvia Jorge leslye TOVARN Active AUGMENTIN 875-125 MG TAB 1 po BID x 10 days AMOXICILLIN- POT CLAVULANATE 07139921451 No Longer Active Adriana Bender LPN Active CHEWABLE CALCIUM 500-200-40 MG-UNT-MCG ORAL CHEW 1 chew tab bid 201 11/03/03 CALCIUM-VITAMIN D-VITAMIN K 25620969710 Active Silvia Arnold APRN Active EQ COMPLETE MULTIVIT ADULT 50+ ORAL TABS 1 tab po bid MULTIPLE VITAMINS-MINERALS 05371964331 Active Silvia Arnold APRN Act jairo HYDROCODONE-ACETAMINOPHEN 7.5-325 MG TABS TAKE ONE TAB EVERY 6 HOURS BY MOUTH NEEDED FOR PAIN HYDROCODONE-ACETAMINOPHEN 34404207869 Acti raheel Mcmullen Active LORTAB 7.5-500 MG TABS take one po Q6 hours HYDROCODONE-ACETAMINOPHEN No Longer Active Nirmal Robbins RN Active [facility] MELATON[facility] 5-10 MG CR-TABS Take one by mouth daily at bedtime MELATONIN-PYRIDOXINE 09831198650 No Longer Active Bertrand Patel DO Active VITAMIN E 200 UNIT CAPS 1 cap po qd VITAMIN E 316 47514618 No Longer Active Bertrand Patel DO Active B-12 1000 MCG CAPS 1 tab daily CYANOCOBALAMIN 31 330883230 No Longer Active Bertrand Patel DO Active METFORMIN HCL 500 MG TABS 1 bid METFORMIN HCL 02366249013 No Longer Active Bertrand Patel DO Active FUROSEMIDE 20 MG TABS 1 pill by mouth daily if needed for edema FUROSEMIDE 53914583869 No Longer Active Bertrand Patel DO Act jairo PRAVASTATIN SODIUM 20 MG TABS 1 tablet by mouth daily at bedtime PRAVASTATIN SODIUM 29633446869 No Longer Active Bertrand Patel DO Active AUGMENTIN 875-125 MG TABS 1 pill by mouth twice daily AMOXICILLIN-POT CLAVULANATE 56507199826 No Longer Active Yoli Mercado MD PhD Active LEVAQUIN 500 MG TABS 1 pill by mouth daily LEVO FLOXACIN 67347647411 No Longer Active Yoli Mercado MD PhD Active AMLODIPINE BESYLATE 5 MG TABS 1 tablet by mouth daily for bl ood pressure AMLODIPINE BESYLATE 66213067747 Active Darlyn Monzon Active MICARDIS 80 MG TABS 1 tablet daily for blood pressure TELMISARTAN 27995530572 Active Darlyn Monzon Active MICARDIS HCT 80-12.5 MG TABS 1 qd TELMISARTA N-HCTZ 43527757417 No Longer Active Bertrand Patel DO Active CINNAMON ALPHA LIPOIC AC CMPLX CAPS by mouth twice a d ay in AM by mouth twice a day in PM ALPHA LIPOIC [id number] CAPS 892610 07758 No Longer Active Bertrand Patel DO Active AZITHROMYCIN 500 MG SOLR 1 po q day AZITHROMYCI N 17392848138 No Longer Active Bertrand Patel DO Active CYMBALTA 30 MG CPEP 1 cap by mouth daily DULOXE CATHI HCL 90835149675 No Longer Active Bertrand Patel DO Active CYMBALTA 60 MG CPEP 1 cap by mouth daily DULOXE CATHI HCL 06346911600 Active Keysha Jones MA Active WELLBUTRIN 75 MG TABS 2 times daily BUPROPION H CL 17909858382 No Longer Active Bertrand W Jorge DO Active PROAIR HFA 108 (90 BASE) MCG/ACT AERS take one to two puffs po Q4-6 hour prn cough and shortness of breath ALBUTEROL SULFATE 0118745686 2 Active Silvia Arnold PHOTOGRAMMETRIC ENGINEER Active AZITHROMYCIN 250 MG TABS take 2 po today then take 1 po days 2-5 AZITHROMYCIN 58175319895 No Longer Active Adolfo OSORIO Active PERMETHRIN 5 % CREA apply neck to toes tonight a nd then rinse off in morning. repeat at 7 days PERMETHRIN 85388836972 No Longer Active Adolfo OSORIO Active AMOXICILLIN 500 MG CAPS 2 po BID x 10 days AMOX ICILLIN 97365603008 No Longer Active Yoli Mercado MD PhD Active ALPRAZOLAM 0.5 MG TAB 1 tab by mouth tid ALPRAZOL AM 94949212162 Active Nitza Mullins RPT,RMA Active INSUPEN ULTRAFIN 31G X 6 MM MISC USE DIRECTED 03/04 INSULIN PEN NEEDLE 71977662364 No Longer Active Bertrand Patel DO Active TRANSDERM-SCOP 1.5 MG PT72 1 patch applied behind ear q 3 day 20 04/13/28 SCOPOLAMINE BASE 63567746799 No Longer Active Bertrand Patel DO Active MACRODANTIN 100 MG CAPS one p.o. b.i.d. x2 weeks 03/04 NITROFURANTOIN MACROCRYSTAL 75834662192 No Longer Active Bertrand Patel DO Active MACRODANTIN 100 MG CAPS one p.o. b.i.d. x2 weeks 03/04 MACRODANTIN 100 MG CAPS 4201547 NITROFURANTOIN MACROCRYSTAL Inactive TRANSDERM-SCOP 1.5 MG PT72 [...] at 7 days PERMETHRIN 5 % CREA 532172 PERMETHRIN Inactive WELLBUTRIN 75 MG TABS 2 times daily WELLBUTRIN 75 MG TABS BUPROPION HCL Inactive CYMBALTA 30 MG CPEP 1 cap by mouth daily CYMBALTA 30 MG CPEP 288899 DULOXETINE HCL Inactive AZITHROMYCIN 500 MG SOLR 1 po q day ALTA THROMYCIN 500 MG SOLR 50418105934 AZITHROMYCIN Inactive CINNAMON ALPHA LIPOIC AC CMPLX CAPS by mouth twice a d ay in AM by mouth twice a day in PM CINNAMON ALPHA LIPOIC AC CMPLX CAPS ALPHA LIPOIC [id number] CAPS Inactive MICARDIS HCT 80-12.5 MG TABS 1 qd MICARDI S HCT 80-12.5 MG TABS 726082 TELMISARTAN-HCTZ Inactive PRAVASTATIN SODIUM 20 MG TABS 1 tablet by mouth daily at bedtime PRAVASTATIN SODIUM 20 MG TABS 666378 PRAVASTATIN SODIUM Inactive FUROSEMIDE 20 MG TABS 1 pill by mouth daily if needed for edema FUROSEMIDE 20 MG TABS 005643 FUROSEMIDE Inactive METFORMIN HCL 500 MG TABS 1 bid METFORMIN HCL 500 MG TABS 165219 METFORMIN HCL Inactive B-12 1000 MCG CAPS 1 tab daily B-12 1000 MCG CAP S CYANOCOBALAMIN Inactive VITAMIN E 200 UNIT CAPS 1 cap po qd VITAMIN E 2 00 UNIT CAPS 3063215 VITAMIN E Inactive [facility] MELATONIN 5-10 MG CR-TABS Take one by mouth daily at bedtime [facility] MELATONIN 5-10 MG CR-TABS MELATONIN-PYRIDOXI NE Inactive LORTAB 7.5-500 MG TABS take one po Q6 hours LORTAB 7.5-500 MG TABS HYDROCODONE-ACETAMINOPHEN Inactive AZITHROMYCIN 250 MG ORAL TABS Take 2 tabs po today then 1 ta b po daily AZITHROMYCIN 250 MG ORAL TABS 7380138 AZITHROMYCI N Inactive SYMBICORT 160-4.5 MCG/ACT AERO 2 puffs BID SYMBICORT 160- 4.5 MCG/ACT AERO BUDESONIDE-FORMOTEROL FUMARATE Inactive ALBUTEROL SULFATE 0.083 % NEBU SOLN one vial per nebul izer every 4-6 hours as needed ALBUTEROL SULFATE 0.083 % NEBU SOLN 33117 8 ALBUTEROL SULFATE Inactive NEBULIZER MISC use as directed NEBULIZER MISC NEBULIZERS Inactive TESSALON PERLES 100 MG CAP 1 tablet by mouth 3 times daily 07/07 TESSALON PERLES 100 MG CAP 157221 BENZONATATE Inact jairo CYCLOBENZAPRINE HCL 10 MG TABS Take 1 tab TID PRN for muscle pain CYCLOBENZAPRINE HCL 10 MG TABS 499917 CYCLOBENZAPRINE HCL Inactive AUGMENTIN 875-125 MG TAB 1 po BID x 10 days AUGMENTIN 875- 125 MG TAB 877553 AMOXICILLIN-POT CLAVULANATE Inactive BACTROBAN 2 % CREAM Apply to affected area BID for up to 10 days BACTROBAN 2 % CREAM 702247 MUPIROCIN CALCIUM Inactive AMOXICILLIN 500 MG CAPS 2 po BID x 10 days AMOXICILLIN 500 MG CAPS 214760 AMOXICILLIN Inactive AZITHROMYCIN 250 MG TABS take 2 po today then take 1 po days 2-5 AZITHROMYCIN 250 MG TABS 8830685 AZITHROMYCIN Inactiv e LEVAQUIN 500 MG TABS 1 pill by mouth daily LEVAQUIN 500 MG TABS 876340 LEVOFLOXACIN Inactive AUGMENTIN 875-125 MG TABS 1 pill by mouth twice daily AUGMENTIN 875-125 MG TABS 917937 AMOXICILLIN-POT CLAVULANATE Inacti ve AUGMENTIN 875-125 MG TAB 1 po BID x 10 days AUGMENTIN 875- 125 MG TAB 105805 AMOXICILLIN-POT CLAVULANATE Inactive PREDNISONE 20 MG TAB take 3 tabs daily for 3 days , 2 tabs daily for 3 days, 1 tab daily for 3 days, 1/2 tab daily for 3 days PREDNISONE 20 MG TAB 778610 PREDNISONE Inactive CIPRO 500 MG TAB 1 tablet by mouth twice daily CIPRO 500 MG TAB 045686 CIPROFLOXACIN HCL Inactive Vital Signs Date Name [...] 5.8 % 4.3-6.0 cholesterol, serum 200 mg/dL 552-473 2458/07/22 triglyceride, serum, fasting 56 mg/dL 30-200 HDL cholesterol, serum 80 mg/dL 32-96 LDL cholesterol, serum 109 mg/dL 0-130 albumin/creatinine ratio, urine < 30 mg/g mg/g{creat} 0-2 9 TSH 1.16 m[iU]/mL 0.36-3.74 sodium, serum 142 mmol/L 920-829 7971/07/22 carbon dioxide, venous blood 33.1 mmol/L 21.0-32 [...] 0-19 Encounters Code Encounter Date Provider Facility CPT-45309 Level 4 Est. Patient 12:31:54 CDT Bertrand marquez [facility] CPT-10155 Level 3 Est. Patient 11:27:00 PIPE FITTER SUPERVISOR MAINTENANCE Ike Deluna MD [facility] CPT-35916 Level 3 Est. Patient 08:50:57 PIPE FITTER SUPERVISOR MAINTENANCE Dangelo PHOTOGRAMMETRIC ENGINEER [facility] CPT-66316 Level 3 Est. Patient 10:04:13 CDT Bertrand marquez [facility] CPT-88310 Level 4 Est. Patient 16:02:10 PIPE FITTER SUPERVISOR MAINTENANCE Dangelo PHOTOGRAMMETRIC ENGINEER [facility] CPT-72387 Level 3 Est. Patient 13:04:54 PIPE FITTER SUPERVISOR MAINTENANCE Dangelo BARAJAS [facility] CPT-45615 Level 3 Est. Patient 12:56:37 CDT Bertrand marquez [facility] CPT-65365 Level 3 Est. Patient 19:12:03 CDT Yoli tolbert MD [facility] CPT-45039 Level 3 Est. Patient 14:36:01 CDT Yoli tolbert MD [facility] CPT-67755 Level 2 Est. Patient 08:00:22 CDT Jcarlos dc MD [facility]-24098 Level 3 Est. Patient 19:06:55 CDT Bertrand marquez [facility] CPT-73231 Level 3 Est. Patient 10:08:23 PIPE FITTER SUPERVISOR MAINTENANCE Bertrand marquez [facility] CPT-63411 Level 3 Est. Patient 16:37:54 PIPE FITTER SUPERVISOR MAINTENANCE Bertrand marquez [facility] CPT-82599 Level 3 Est. Patient 11:31:59 PIPE FITTER SUPERVISOR MAINTENANCE Bertrand marquez [facility] CPT-06164 Level 3 Est. Patient 10:20:08 CDT Adolfo villasenor [facility] CPT-12799 Level 3 Est. Patient 13:45:20 CDT Sanket buckley [facility] CPT-48659 Level 3 Est. Patient 12:51:06 CDT Adolfo villasenor [facility] CPT-56727 Level 3 Est. Patient 11:22:51 PIPE FITTER SUPERVISOR MAINTENANCE Yoli tolbert MD [facility] CPT-77368 Level 3 Est. Patient 13:33:19 CDT Bertrand marquez [facility] Procedures Code Procedure Name Date Entry Date Standard Desc ription CPT-32970 Wound Culture - LAB USE ONLY 15:45:25 CDT 2 CPT-02750 Venipuncture Draw Fee 10:23:01 CDT CPT-J0696 Rocephin 1000 mg (Ceftriaxone) 16:20:30 PIPE FITTER SUPERVISOR MAINTENANCE CPT-58759 Abx/Therapy Injection 16:20:29 PIPE FITTER SUPERVISOR MAINTENANCE CPT-J0696 Rocephin 1gm Inj Solr 15:51:59 PIPE FITTER SUPERVISOR MAINTENANCE CPT-12126 Chest 2V Frontal and Lat 15:20:28 PIPE FITTER SUPERVISOR MAINTENANCE 07/22 CPT-41670 Breathing Tx 14:51:55 PIPE FITTER SUPERVISOR MAINTENANCE CPT-71398 Breathing Tx 09:57:16 PIPE FITTER SUPERVISOR MAINTENANCE CPT-74866 Knee comp 4/> V 11:58:06 PIPE FITTER SUPERVISOR MAINTENANCE
--- OUTSIDE RECORDS SUMMARY | 2019-11-13 10:34 | XMS REPORT | Clinical Summary ---
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 Fatigue 780.79 Active Silvia [...] tab daily for 3 days P REDNISONE 49378510259 Active Silvia Arnold APRN Active SYMBICORT 160-4.5 MCG/ACT AERO 2 puffs BID BUDESONIDE-FORMOTEROL FUMARATE 68709118860 Active Silvia Arnold APRN Active ALBUTEROL SULFATE 0.083 % NEBU SOLN one vial per nebul izer every 4-6 hours as needed ALBUTEROL SULFATE 37761588173 Active Silvia Arnold APRN Active NEBULIZER MISC use as directed NEBULIZERS 02320725720 Active Silvia Arnold APRN Active AZITHROMYCIN 250 MG ORAL TABS Take 2 tabs po today then 1 ta b po daily AZITHROMYCIN 76795402202 No Longer Active Silvia gavin APRN Active AUGMENTIN 875-125 MG TAB 1 po BID x 10 days AMOXICILLIN- POT CLAVULANATE 83283939285 No Longer Active Adriana Bender LPN Active TESSALON PERLES 100 MG CAP 1 tablet by mouth 3 times daily BENZONATATE 81992431190 Active Silvia Arnold APRN Active CHEWABLE CALCIUM 500-200-40 MG-UNT-MCG ORAL CHEW 1 chew tab bid 201 11/03/03 CALCIUM-VITAMIN D-VITAMIN K 54291776040 Active Silvia Arnold APRN Active EQ COMPLETE MULTIVIT ADULT 50+ ORAL TABS 1 tab po bid MULTIPLE VITAMINS-MINERALS 29555398395 Active Silvia Arnold APRN Act jairo HYDROCODONE-ACETAMINOPHEN 7.5-325 MG TABS TAKE ONE TAB EVERY 6 HOURS BY MOUTH NEEDED FOR PAIN HYDROCODONE-ACETAMINOPHEN 11961424368 Acti ve Bertrand Patel DO Active LORTAB 7.5-500 MG TABS take one po Q6 hours HYDROCODONE-ACETAMINOPHEN No Longer Active Nirmal Robbins RN Active [facility] MELATONIN 5-10 MG CR-TABS Take one by mouth daily at bedtime MELATONIN-PYRIDOXINE 75880328186 No Longer Active Bertrand Patel DO Active VITAMIN E 200 UNIT CAPS 1 cap po qd VITAMIN E 316 84004743 No Longer Active Bertrand Patel DO Active B-12 1000 MCG CAPS 1 tab daily CYANOCOBALAMIN 31 879243943 No Longer Active Bertrand Patel DO Active METFORMIN HCL 500 MG TABS 1 bid METFORMIN HCL 36578648597 No Longer Active Bertrand Patel DO Active FUROSEMIDE 20 MG TABS 1 pill by mouth daily if needed for edema FUROSEMIDE 89003166664 No Longer Active Bertrand Patel DO Act jairo PRAVASTATIN SODIUM 20 MG TABS 1 tablet by mouth daily at bedtime PRAVASTATIN SODIUM 85173285022 No Longer Active Bertrand Patel DO Active AUGMENTIN 875-125 MG TABS 1 pill by mouth twice daily AMOXICILLIN-POT CLAVULANATE 72188041021 No Longer Active Yoli Mercado MD PhD Active LEVAQUIN 500 MG TABS 1 pill by mouth daily LEVO FLOXACIN 93018619203 No Longer Active Yoli Mercado MD PhD Active CYCLOBENZAPRINE HCL 10 MG TABS Take 1 tab TID PRN for muscle pain CYCLOBENZAPRINE HCL 05546435527 Active Brittni Randall BUFFING 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 SEMIAUTOMATIC Active AMLODIPINE BESYLATE 5 MG TABS 1 tablet by mouth daily for bl ood pressure AMLODIPINE BESYLATE 80007623919 Active Nitza Dorman PT,RMA Active MICARDIS 80 MG TABS 1 tablet daily for blood pressure TELMISARTAN 36773013698 Active Nitza Mullins RPT,RMA Active MICARDIS HCT 80-12.5 MG TABS 1 qd TELMISARTA N-HCTZ 11970397881 No Longer Active Bertrand Patel DO Active CINNAMON ALPHA LIPOIC AC CMPLX CAPS by mouth twice a d ay in AM by mouth twice a day in PM ALPHA LIPOIC [id number] CAPS 275468 96287 No Longer Active Bertrand Patel DO Active AZITHROMYCIN 500 MG SOLR 1 po q day AZITHROMYCI N 83272439046 No Longer Active Bertrand Patel DO Active CYMBALTA 30 MG CPEP 1 cap by mouth daily DULOXE CATHI HCL 45821858549 No Longer Active Bertrand Patel DO Active CYMBALTA 60 MG CPEP 1 cap by mouth daily DULOXE CATHI HCL 92720162694 Active Ntiza Mullins RPT,RMA Active WELLBUTRIN 75 MG TABS 2 times daily BUPROPION H CL 60830133427 No Longer Active Bertrand Patel DO Active PROAIR HFA 108 (90 BASE) MCG/ACT AERS take one to two puffs po Q4-6 hour prn cough and shortness of breath ALBUTEROL SULFATE 0719559744 2 Active Silvia Arnold RN OBSERVATION Active AZITHROMYCIN 250 MG TABS take 2 po today then take 1 po days 2-5 AZITHROMYCIN 47075886905 No Longer Active Adolfo OSORIO Active PERMETHRIN 5 % CREA apply neck to toes tonight a nd then rinse off in morning. repeat at 7 days PERMETHRIN 18464082802 No Longer Active Adolfo OSORIO Active AMOXICILLIN 500 MG CAPS 2 po BID x 10 days AMOX ICILLIN 11465074473 No Longer Active Yoli Mercado MD PhD Active ALPRAZOLAM 0.5 MG TAB 1 tab by mouth tid ALPRAZOL AM 01672020898 Active Bertrand Patel DO Active INSUPEN ULTRAFIN 31G X 6 MM MISC USE DIRECTED 03/04 INSULIN PEN NEEDLE 71744843919 No Longer Active Bertrand Patel DO Active TRANSDERM-SCOP 1.5 MG PT72 1 patch applied behind ear q 3 day 20 04/13/28 SCOPOLAMINE BASE 53606205439 No Longer Active Bertrand Patel DO Active MACRODANTIN 100 MG CAPS one p.o. b.i.d. x2 weeks 03/04 NITROFURANTOIN MACROCRYSTAL 13899074928 No Longer Active Bertrand Patel DO Active MACRODANTIN 100 MG CAPS one p.o. b.i.d. x2 weeks 03/04 MACRODANTIN 100 MG CAPS 9498395 NITROFURANTOIN MACROCRYSTAL Inactive TRANSDERM-SCOP 1.5 MG PT72 [...] at 7 days PERMETHRIN 5 % CREA 598746 PERMETHRIN Inactive WELLBUTRIN 75 MG TABS 2 times daily WELLBUTRIN 75 MG TABS 735055 BUPROPION HCL Inactive CYMBALTA 30 MG CPEP 1 cap by mouth daily CYMBALTA 30 MG CPEP 330596 DULOXETINE HCL Inactive AZITHROMYCIN 500 MG SOLR 1 po q day ALTA THROMYCIN 500 MG SOLR 22289854858 AZITHROMYCIN Inactive CINNAMON ALPHA LIPOIC AC CMPLX CAPS by mouth twice a d ay in AM by mouth twice a day in PM CINNAMON ALPHA LIPOIC AC CMPLX CAPS ALPHA LIPOIC [id number]-[id number] CAPS Inactive MICARDIS HCT 80-12.5 MG TABS 1 qd MICARDI S HCT 80-12.5 MG TABS 008711 TELMISARTAN-HCTZ Inactive PRAVASTATIN SODIUM 20 MG TABS 1 tablet by mouth daily at bedtime PRAVASTATIN SODIUM 20 MG TABS 698739 PRAVASTATIN SODIUM Inactive FUROSEMIDE 20 MG TABS 1 pill by mouth daily if needed for edema FUROSEMIDE 20 MG TABS 519735 FUROSEMIDE Inactive METFORMIN HCL 500 MG TABS 1 bid METFORMIN HCL 500 MG TABS 936548 METFORMIN HCL Inactive B-12 1000 MCG CAPS 1 tab daily B-12 1000 MCG CAP S CYANOCOBALAMIN Inactive VITAMIN E 200 UNIT CAPS 1 cap po qd VITAMIN E 2 00 UNIT CAPS 0557283 VITAMIN E Inactive [facility] MELATONIN 5-10 MG CR-TABS Take one by mouth daily at bedtime [facility] MELATONIN 5-10 MG CR-TABS MELATONIN-PYRIDOXI NE Inactive LORTAB 7.5-500 MG TABS take one po Q6 hours LORTAB 7.5-500 MG TABS HYDROCODONE-ACETAMINOPHEN Inactive AZITHROMYCIN 250 MG ORAL TABS Take 2 tabs po today then 1 ta b po daily AZITHROMYCIN 250 MG ORAL TABS 4242383 AZITHROMYCI N Inactive AMOXICILLIN 500 MG CAPS 2 po BID x 10 days AMOXICILLIN 500 MG CAPS 387304 AMOXICILLIN Inactive AZITHROMYCIN 250 MG TABS take 2 po today then take 1 po days 2-5 AZITHROMYCIN 250 MG TABS 0886497 AZITHROMYCIN Inactiv e LEVAQUIN 500 MG TABS 1 pill by mouth daily LEVAQUIN 500 MG TABS 697607 LEVOFLOXACIN Inactive AUGMENTIN 875-125 MG TABS 1 pill by mouth twice daily AUGMENTIN 875-125 MG TABS 654727 AMOXICILLIN-POT CLAVULANATE Inacti ve AUGMENTIN 875-125 MG TAB 1 po BID x 10 days AUGMENTIN 875- 125 MG TAB 343738 AMOXICILLIN-POT CLAVULANATE Inactive Vital Signs Date Name [...] Negative;Positive Encounters Code Encounter Date Provider Facility CPT-17942 Level 4 Est. Patient 16:02:10 SEMICONDUCTOR TESTING GROUP LEADER Dangelo [facility] [place] [facility] [place] CPT-58713 Level 3 Est. Patient 13:04:54 SEMICONDUCTOR TESTING GROUP LEADER Dangelo [facility] [place] [facility] [place] CPT-04389 Level 3 Est. Patient 12:56:37 CDT Bertrand marquez DO [facility] CPT-19260 Level 3 Est. Patient 19:12:03 CDT Yoli tolbert MD [facility] CPT-59480 Level 3 Est. Patient 14:36:01 CDT Yoli tolbert MD [facility] CPT-99391 Level 2 Est. Patient 08:00:22 CDT Jcarlos dc MD [facility] CPT-57432 Level 3 Est. Patient 19:06:55 CDT Bertrand marquez [facility] CPT-94711 Level 3 Est. Patient 10:08:23 SEMICONDUCTOR TESTING GROUP LEADER Bertrand Jacklyn Lindsay marquez [facility] CPT-03700 Level 3 Est. Patient 16:37:54 SEMICONDUCTOR TESTING GROUP LEADER Bertrand marquez [facility] CPT-45067 Level 3 Est. Patient 11:31:59 SEMICONDUCTOR TESTING GROUP LEADER Bertrand Sabillon jimmy [facility] CPT-89296 Level 3 Est. Patient 10:20:08 CDT Adolfo villasenor [facility] CPT-61705 Level 3 Est. Patient 13:45:20 CDT Sanket buckley [facility] CPT-27215 Level 3 Est. Patient 12:51:06 CDT Adolfo villasenor [facility] CPT-48017 Level 3 Est. Patient 11:22:51 SEMICONDUCTOR TESTING GROUP LEADER Yoli tolbert MD PhD [facility] CPT-59956 Level 3 Est. Patient 13:33:19 CDT Bertrand marquez [facility] Procedures Code Procedure Name Date Entry Date Standard Desc ription CPT-J0696 Rocephin 1000 mg (Ceftriaxone) 16:20:30 SEMICONDUCTOR TESTING GROUP LEADER CPT-27630 Abx/Therapy Injection 16:20:29 SEMICONDUCTOR TESTING GROUP LEADER CPT-J0696 Rocephin 1gm Inj Solr 15:51:59 SEMICONDUCTOR TESTING GROUP LEADER CPT-69109 Chest 2V Frontal and Lat 15:20:28 SEMICONDUCTOR TESTING GROUP LEADER 07/22 CPT-91694 Breathing Tx 14:51:55 SEMICONDUCTOR TESTING GROUP LEADER CPT-60430 Breathing Tx 09:57:16 SEMICONDUCTOR TESTING GROUP LEADER CPT-70759 Knee comp 4/> V 11:58:06 SEMICONDUCTOR TESTING GROUP LEADER
--- OUTSIDE RECORDS SUMMARY | 2019-11-13 10:35 | XMS REPORT | Clinical Summary ---
[...] 09/09/28 EDEMA LEG ICD-782.3 Inactive Adele Feldman ENGINEERING LIBRARIAN 201 01/01/02 SHORTNESS OF BREATH ICD-786.05 Inactive Yoli Mercado MD PhD RIB PAIN, RIGHT SIDED ICD-786.50 Inactive Yoli Mercado MD PhD KNEE PAIN, RIGHT ICD-719.46 Inactive Adele Esqueda ghn ENGINEERING LIBRARIAN Knee pain, left ICD-719.46 Inactive Adele Holden hn ENGINEERING LIBRARIAN Pharyngitis-Acute ICD-462 Inactive Bertrand Redmond DO Polyuria ICD-788.42 Inactive Yoli Mercado MD P hD Cellulitis, leg, right ICD-682.6 Inactive Yuki Deluna MD Foreign body, ear ICD-931 Inactive Yoli salazar MD PhD Fatigue ICD-780.79 Inactive Ike Deluna MD 201 12/01/06 Headache ICD-784.0 Inactive Adele Feldman ENGINEERING LIBRARIAN 2017 Cough ICD-786.2 Inactive Adele Feldman ENGINEERING LIBRARIAN 06/04 SINUSITIS, ACUTE ICD-461.9 Inactive Ike lange MD Fatigue ICD-780.79 Inactive Adele Feldman ENGINEERING LIBRARIAN 2017 Bronchitis acute with bronchospasm ICD-466.0 I nactive Adele Feldman ENGINEERING LIBRARIAN Animal bite ICD-919.8 Inactive Adele Feldman LP N Mycoplasma infection ICD-041.81 Inactive Anit a Feldman ENGINEERING LIBRARIAN Amenorrhea, secondary ICD-626.0 Inactive Ani ta Feldman ENGINEERING LIBRARIAN Medication List Medication Instructions Start Date Stop Date Generic Name NDC Status Provider Patient Instruction ADDERALL 10 MG ORAL TABLET 1 tab twice daily 2 AMPHETAMINE-DEXTROAMPHETAMINE 61757152440 No Longer Active Nitza Phi llips Scribe Active ZITHROMAX Z-MARTIN 250 MG ORAL TABLET 2 today and then 1 daily for 4 days AZITHROMYCIN 72507976383 No Longer Active Nitza Osman lips Scribe Active BENZONATATE 200 MG ORAL CAPSULE 1 three times a day as neede d for cough BENZONATATE 30104431678 No Longer Active Nitza Osman lips Scribe Active VITAMIN D3 11865 UNIT ORAL CAPSULE 1 pill Week x 4 mo nths for vitamin D deficiency/osteoporosis CHOLECALCIFEROL 88702396484 N o Longer Active Layla Mcmullen Active BACTROBAN 2 % EXTERNAL CREAM Apply to affected area BID for up to 10 days MUPIROCIN CALCIUM 68222872854 No Longer Active Ike Deluna MD Active CIPRO 500 MG ORAL TABLET 1 tablet by mouth twice daily CIPROFLOXACIN HCL 66674922942 No Longer Active Adriana Bender LPN Active AUGMENTIN 875-125 MG ORAL TABLET 1 po BID x 10 days 20 18/04/06 AMOXICILLIN-POT CLAVULANATE 49539044304 No Longer Active Adriana Bender LPN Active MODAFINIL 200 MG ORAL TABLET Take 1/2 tab po in the am and 1 /2 tab po at noon MODAFINIL 48936558343 Active Bertrand Patel DO Ac tive CYCLOBENZAPRINE HCL 10 MG ORAL TABLET Take 1 tab TID PRN for mus triston pain CYCLOBENZAPRINE HCL 67918012811 No Longer Active Bertrand Patel DO Active TESSALON PERLES 100 MG ORAL CAPSULE 1 tablet by mouth 3 times da juan pablo BENZONATATE 40721136157 No Longer Active Bertrand Patel DO Ac tive NEBULIZER use as directed NEBULIZERS 59611646524 No Longer Active Bertrand Patel DO Active ALBUTEROL SULFATE (2.5 MG/3ML) 0.083% INHALATION NEBUL IZATION SOLUTION one vial per nebulizer every 4-6 hours as needed ALBUTERO L SULFATE 16326218649 No Longer Active Bertrand Patel DO Active SYMBICORT 160-4.5 MCG/ACT INHALATION AEROSOL 2 puffs BID 9 BUDESONIDE-FORMOTEROL FUMARATE 07164266631 No Longer Active Bertrand Patel DO Active PREDNISONE 20 MG ORAL TABLET take 3 tabs daily for 3 d ays, 2 tabs daily for 3 days, 1 tab daily for 3 days, 1/2 tab daily for 3 days 08/02 PREDNISONE 81471656926 No Longer Active Silvia Arnold ELEVATOR STARTER Acti ve AZITHROMYCIN 250 MG ORAL TABLET Take 2 tabs po today then 1 tab po daily AZITHROMYCIN 45099696147 No Longer Active Silvia Jorge gavin ELEVATOR STARTER Active AUGMENTIN 875-125 MG ORAL TABLET 1 po BID x 10 days 20 19/07/13 AMOXICILLIN-POT CLAVULANATE 82787881424 No Longer Active Adriana Bender LPN Active CHEWABLE CALCIUM 500-200-40 MG-UNT-MCG ORAL TABLET CHEWABLE 1 chew tab bid CALCIUM-VITAMIN D-VITAMIN K 91733446409 Active Silvia nunes ELEVATOR STARTER Active EQ COMPLETE MULTIVIT ADULT 50+ ORAL TABLET 1 tab po bid MULTIPLE VITAMINS-MINERALS 75709294331 Active Silvia Arnold ELEVATOR STARTER Act jairo HYDROCODONE-ACETAMINOPHEN 7.5-325 MG ORAL TABLET TAKE ONE TAB EVERY 6 HOURS BY MOUTH NEEDED FOR PAIN HYDROCODONE-ACETAMINOPHEN 004 79919203 Active Adele Feldman ENGINEERING LIBRARIAN Active LORTAB 7.5-500 MG ORAL TABLET take one po Q6 hours 201 09/12/01 HYDROCODONE-ACETAMINOPHEN 45505514763 No Longer Active Nirmal Robbins RN Active [facility] MELATONIN 5-10 MG ORAL TABLET EXTENDED RELEASE Jair e one by mouth daily at bedtime MELATONIN-PYRIDOXINE 72407163912 No Longer Acti ve Bertrand Patel DO Active VITAMIN E 200 UNIT ORAL CAPSULE 1 cap po qd VITAM IN E 40934118907 No Longer Active Bertrand Patel DO Active B-12 1000 MCG ORAL CAPSULE 1 tab daily CYANOCOB ALAMIN 46355575332 No Longer Active Bertrand Patel DO Active METFORMIN HCL 500 MG ORAL TABLET 1 bid METFOR MIN HCL 96669617616 No Longer Active Bertrand Patel DO Active FUROSEMIDE 20 MG ORAL TABLET 1 pill by mouth daily if needed for edema FUROSEMIDE 25312236282 No Longer Active Bertrand Patel DO Active PRAVASTATIN SODIUM 20 MG ORAL TABLET 1 tablet by mouth daily at bedtime PRAVASTATIN SODIUM 24382485106 No Longer Active Bertrnad Patel DO Active AUGMENTIN 875-125 MG ORAL TABLET 1 pill by mouth twice daily 201 09/10/00 AMOXICILLIN-POT CLAVULANATE 78180207614 No Longer Active Yoli Mercado MD PhD Active LEVAQUIN 500 MG ORAL TABLET 1 pill by mouth daily 2013 LEVOFLOXACIN 14793655552 No Longer Active Yoli Mercado MD PhD Acti ve AMLODIPINE BESYLATE 5 MG ORAL TABLET 1 tablet by mouth daily for blood pressure AMLODIPINE BESYLATE 54324300752 Active Bertrand Patel DO Active MICARDIS 80 MG ORAL TABLET 1 tablet daily for blood pressure 07/30 TELMISARTAN 86633842897 Active Bertrand Patel DO Active MICARDIS HCT 80-12.5 MG ORAL TABLET 1 qd TELMISARTAN-HCTZ 42427522207 No Longer Active Bertrand Patel DO Active CINNAMON ALPHA LIPOIC AC CMPLX CAPSULE by mouth twice a day in AM by mouth twice a day in PM ALPHA LIPOIC [id number] CA PS 47924705109 No Longer Active Bertrand Patel DO Active AZITHROMYCIN 500 MG INTRAVENOUS SOLUTION RECONSTITUTED 1 po q da y AZITHROMYCIN 47915690125 No Longer Active Bertrand Patel DO A ctive CYMBALTA 30 MG ORAL CAPSULE DELAYED RELEASE PARTICLES 1 cap by mouth daily DULOXETINE HCL 63371154923 No Longer Active Bertrand marquez DO Active CYMBALTA 60 MG ORAL CAPSULE DELAYED RELEASE PARTICLES 1 cap by mouth daily DULOXETINE HCL 99319050082 Active Bertrand Patel DO Active WELLBUTRIN 75 MG ORAL TABLET 2 times daily BUPR OPION HCL 42727028049 No Longer Active Bertrand Patel DO Active PROAIR HFA 108 (90 Base) MCG/ACT INHALATION AEROSOL SO LUTION take one to two puffs po Q4-6 hour prn cough and shortness of breath ALBUTEROL SULFATE 52377776594 Active Silvia Arnold APRN Active AZITHROMYCIN 250 MG ORAL TABLET take 2 po today then take 1 po days 2-5 AZITHROMYCIN 50192045769 No Longer Active Adolfo OSORIO Active PERMETHRIN 5 % EXTERNAL CREAM apply neck to toes tonig ht and then rinse off in morning. repeat at 7 days PERMETHRIN 29001144086 No Longer Active Adolfo OSORIO Active AMOXICILLIN 500 MG ORAL CAPSULE 2 po BID x 10 days 201 07/15/00 AMOXICILLIN 79931722764 No Longer Active Yoli Mercado MD PhD Acti ve ALPRAZOLAM 0.5 MG ORAL TABLET 1 tab by mouth tid ALPRAZOLAM 09658612568 Active Nitza Mullins LPN Active INSUPEN ULTRAFIN 31G X 6 MM USE DIRECTED INSULIN PEN NEEDLE 58231253448 No Longer Active Bertrand Patel DO Active TRANSDERM-SCOP (1.5 MG) 1 MG/3DAYS TRANSDERMAL PATCH 7 2 HOUR 1 patch applied behind ear q 3 day SCOPOLAMINE BASE 66046701706 No Lo nger Active Bertrand Patel DO Active MACRODANTIN 100 MG ORAL CAPSULE one p.o. b.i.d. x2 weeks NITROFURANTOIN MACROCRYSTAL 37444489654 No Longer Active Bertrand Patel DO Active MACRODANTIN 100 MG ORAL CAPSULE one p.o. b.i.d. x2 weeks MACRODANTIN 100 MG ORAL CAPSULE 3197734 NITROFURANTOIN MACROCRYSTAL Inactive TRANSDERM-SCOP (1.5 MG) 1 [...] days PERMETHRIN 5 % EXTER NAL CREAM 693772 PERMETHRIN Inactive WELLBUTRIN 75 MG ORAL TABLET 2 times daily WELLBUTRIN 75 MG ORAL TABLET 608127 BUPROPION HCL Inactive CYMBALTA 30 MG ORAL CAPSULE DELAYED RELEASE PARTICLES 1 cap by mouth daily CYMBALTA 30 MG ORAL CAPSULE DELAYED RELE ASE PARTICLES 812249 DULOXETINE HCL Inactive AZITHROMYCIN 500 MG INTRAVENOUS SOLUTION RECONSTITUTED 1 po q da y AZITHROMYCIN 500 MG INTRAVENOUS SOLUTION RECONSTITUTED 09804 216697 AZITHROMYCIN Inactive CINNAMON ALPHA LIPOIC AC CMPLX CAPSULE by mouth twice a day in AM by mouth twice a day in PM CINNAMON ALPHA LIPOIC AC CMPLX CAPSULE ALPHA LIPOIC [id number] CAPS Inactive MICARDIS HCT 80-12.5 MG ORAL TABLET 1 qd 07/30 MICARDIS HCT 80-12.5 MG ORAL TABLET 329199 TELMISARTAN-HCTZ Inactive PRAVASTATIN SODIUM 20 MG ORAL TABLET 1 tablet by mouth daily at bedtime PRAVASTATIN SODIUM 20 MG ORAL TABLET 888912 PRAVASTATIN SODIUM Inactive FUROSEMIDE 20 MG ORAL TABLET 1 pill by mouth daily if needed for edema FUROSEMIDE 20 MG ORAL TABLET 224208 FUROSEMIDE Inactive METFORMIN HCL 500 MG ORAL TABLET 1 bid METFORMIN HCL 500 MG ORAL TABLET 826684 METFORMIN HCL Inactive B-12 1000 MCG ORAL CAPSULE 1 tab daily B -12 1000 MCG ORAL CAPSULE CYANOCOBALAMIN Inactive VITAMIN E 200 UNIT ORAL CAPSULE 1 cap po qd 1 VITAMIN E 200 UNIT ORAL CAPSULE 0526629 VITAMIN E Inactive [facility] MELATONIN 5-10 MG ORAL TABLET EXTENDED RELEASE Jair e one by mouth daily at bedtime [facility] MELATONIN 5-10 M G ORAL TABLET EXTENDED RELEASE MELATONIN-PYRIDOXINE Inactive LORTAB 7.5-500 MG ORAL TABLET take one po Q6 hours 201 09/12/01 LORTAB 7.5-500 MG ORAL TABLET 870626 HYDROCODONE-ACETAMINOPHEN Inactive AZITHROMYCIN 250 MG ORAL TABLET Take 2 tabs po today then 1 tab po daily AZITHROMYCIN 250 MG ORAL TABLET 812865 AZITHROMY BERNARDO Inactive SYMBICORT 160-4.5 MCG/ACT INHALATION AEROSOL 2 puffs BID 9 SYMBICORT 160-4.5 MCG/ACT INHALATION AEROSOL BUDESONIDE-FORM OTEROL FUMARATE Inactive ALBUTEROL SULFATE (2.5 MG/3ML) 0.083% INHALATION NEBUL IZATION SOLUTION one vial per nebulizer every 4-6 hours as needed ALBUTEROL SULFATE (2.5 MG/3ML) 0.083% INHALATION NEBULIZATION SOLUTION 557353 ALBUTER OL SULFATE Inactive NEBULIZER use as directed NEBULIZER NEBULI ZERS Inactive TESSALON PERLES 100 MG ORAL CAPSULE 1 tablet by mouth 3 times da juan pablo TESSALON PERLES 100 MG ORAL CAPSULE 995475 BENZONATATE Inactive CYCLOBENZAPRINE HCL 10 MG ORAL TABLET Take 1 tab TID PRN for mus triston pain CYCLOBENZAPRINE HCL 10 MG ORAL TABLET 514262 CYCLOBENZA ANUJA HCL Inactive AUGMENTIN 875-125 MG ORAL TABLET 1 po BID x 10 days 20 18/04/06 AUGMENTIN 875-125 MG ORAL TABLET 942518 AMOXICILLIN-POT CLAVULANATE Inactive BACTROBAN 2 % EXTERNAL CREAM Apply to affected area BID for up to 10 days BACTROBAN 2 % EXTERNAL CREAM 541798 MUPIROCIN CA LCIUM Inactive VITAMIN D3 95884 UNIT ORAL CAPSULE 1 pill Week x 4 mo nths for vitamin D deficiency/osteoporosis VITAMIN D3 59332 UNIT ORAL CAPSULE CHOLECALCIFEROL Inactive BENZONATATE 200 MG ORAL CAPSULE 1 three times a day as neede d for cough BENZONATATE 200 MG ORAL CAPSULE 779202 BENZONATA TE Inactive ZITHROMAX Z-MARTIN 250 MG ORAL TABLET 2 today and then 1 daily for 4 days ZITHROMAX Z-MARTIN 250 MG ORAL TABLET 341948 AZITHR OMYCIN Inactive ADDERALL 10 MG ORAL TABLET 1 tab twice daily 2 ADDERALL 10 MG ORAL TABLET 841994 AMPHETAMINE-DEXTROAMPHETAMINE Inactive AMOXICILLIN 500 MG ORAL CAPSULE 2 po BID x 10 days 201 07/15/00 AMOXICILLIN 500 MG ORAL CAPSULE 908762 AMOXICILLIN Inactive AZITHROMYCIN 250 MG ORAL TABLET take 2 po today then take 1 po days 2-5 AZITHROMYCIN 250 MG ORAL TABLET 092895 AZITHROMY BERNARDO Inactive LEVAQUIN 500 MG ORAL TABLET 1 pill by mouth daily 2013 LEVAQUIN 500 MG ORAL TABLET 991212 LEVOFLOXACIN Inactive AUGMENTIN 875-125 MG ORAL TABLET 1 pill by mouth twice daily 201 09/10/00 AUGMENTIN 875-125 MG ORAL TABLET 118024 AMOXICILLIN-POT CLAVULANATE Inactive AUGMENTIN 875-125 MG ORAL TABLET 1 po BID x 10 days 19/07/13 AUGMENTIN 875-125 MG ORAL TABLET 529546 AMOXICILLIN-POT CLAVULANATE Inactive PREDNISONE 20 MG ORAL TABLET take 3 tabs daily for 3 d ays, 2 tabs daily for 3 days, 1 tab daily for 3 days, 1/2 tab daily for 3 days 08/02 PREDNISONE 20 MG ORAL TABLET 419117 PREDNISONE Inactive CIPRO 500 MG ORAL TABLET 1 tablet by mouth twice daily CIPRO 500 MG ORAL TABLET 504327 CIPROFLOXACIN HCL Inactive Vital Signs Date Name [...] HGBA1C - Chemistry sodium, serum 143 mmol/L 863-646 5968/01/02 carbon dioxide, venous blood 31.7 mmol/L 21.0-32 [...] 0-19 Encounters Code Encounter Date Provider Facility CPT-97849 Level 4 Est. Patient 15:33:35 FAMILY EDUCATOR Bertrand marquez [facility] CPT-32510 Level 4 Est. Patient 12:31:54 CDT Bertrand marquez [facility] CPT-88845 Level 3 Est. Patient 11:27:00 FAMILY EDUCATOR Ike Deluna MD [facility] CPT-11632 Level 3 Est. Patient 08:50:57 FAMILY EDUCATOR Dangelo ELEVATOR STARTER [facility] CPT-95338 Level 3 Est. Patient 10:04:13 CDT Bertrand marquez [facility] CPT-90585 Level 4 Est. Patient 16:02:10 FAMILY EDUCATOR Dangelo [facility] CPT-78118 Level 3 Est. Patient 13:04:54 FAMILY EDUCATOR Dangelo [facility] [id number] Level 3 Est. Patient 12:56:37 CDT Bertrand marquez [facility] CPT-69573 Level 3 Est. Patient 19:12:03 CDT Yoli tolbert MD [facility] CPT-97052 Level 3 Est. Patient 14:36:01 CDT Yoli tolbert MD [facility] CPT-01600 Level 2 Est. Patient 08:00:22 CDT Jcarlos dc MD [facility] CPT-90777 Level 3 Est. Patient 19:06:55 CDT Bertrand marquez [facility] CPT-73183 Level 3 Est. Patient 10:08:23 FAMILY EDUCATOR Bertrand marquez [facility] CPT-69892 Level 3 Est. Patient 16:37:54 FAMILY EDUCATOR Bertrand marquez [facility] CPT-82588 Level 3 Est. Patient 11:31:59 FAMILY EDUCATOR Bertrand marquez [facility] CPT-83935 Level 3 Est. Patient 10:20:08 CDT Adolfo villasenor [facility] CPT-55228 Level 3 Est. Patient 13:45:20 CDT Sanket buckley [facility] CPT-54291 Level 3 Est. Patient 12:51:06 CDT Adolfo villasenor [facility] CPT-63431 Level 3 Est. Patient 11:22:51 FAMILY EDUCATOR Yoli tolbert MD PhD [facility] CPT-42132 Level 3 Est. Patient 13:33:19 CDT Bertrand marquez [facility] Procedures Code Procedure Name Date Entry Date Standard Desc ription CPT-13729 Wound Culture - LAB USE ONLY 15:45:25 CDT 2 CPT-47738 Venipuncture Draw Fee 10:23:01 CDT CPT-J0696 Rocephin 1000 mg (Ceftriaxone) 16:20:30 FAMILY EDUCATOR CPT-02036 Abx/Therapy Injection 16:20:29 FAMILY EDUCATOR CPT-J0696 Rocephin 1gm Inj Solr 15:51:59 FAMILY EDUCATOR CPT-58926 Chest 2V Frontal and Lat 15:20:28 FAMILY EDUCATOR 07/22 CPT-45828 Breathing Tx 14:51:55 FAMILY EDUCATOR CPT-03172 Breathing Tx 09:57:16 FAMILY EDUCATOR CPT-37291 Knee comp 4/> V 11:58:06 FAMILY EDUCATOR
--- OUTSIDE RECORDS SUMMARY | 2019-11-13 10:35 | XMS REPORT | Clinical Summary ---
Author Author Admin, Enrique Adamson Organization [facility] Address Unknown Phone Unavailable Allergies, Adverse Reactions, [...] NDC Status Provider Patient Instruction VITAMIN D3 91408 UNIT CAPS 1 pill Week x 4 months for vitamin D deficiency/osteoporosis CHOLECALCIFEROL 52207923931 Active Darlyn Monzon Active BENZONATATE 200 MG ORAL CAPS 1 three times a day as needed for c ough BENZONATATE 80728739181 Active Ike Deluna MD Acti ve ZITHROMAX Z-MARTIN 250 MG TABS 2 today and then 1 daily for 4 days 201 12/01/06 AZITHROMYCIN 57031691211 Active Ike Deluna MD Active ADDERALL 10 MG ORAL TABS 1 tab twice daily AMPHETAMINE-DEXTROAMPHETAMINE 98480579350 Active Ike Deluna MD Active BACTROBAN 2 % CREAM Apply to affected area BID for up to 10 days MUPIROCIN CALCIUM 88157343801 No Longer Active Ike Deluna MD Active CIPRO 500 MG TAB 1 tablet by mouth twice daily CIPROFLOXACIN HCL 92945264244 No Longer Active Adriana Bender LPN Active AUGMENTIN 875-125 MG TAB 1 po BID x 10 days AMOXICILLIN- POT CLAVULANATE 94692312459 No Longer Active Adriana Bender LPN Active MODAFINIL 200 MG ORAL TABS Take 1/2 tab po in the am and 1/2 tab po at noon MODAFINIL 41837778162 Active Darlyn Monzon A ctive CYCLOBENZAPRINE HCL 10 MG TABS Take 1 tab TID PRN for muscle pain CYCLOBENZAPRINE HCL 46078779509 No Longer Active Bertrand Patel DO Ac tive TESSALON PERLES 100 MG CAP 1 tablet by mouth 3 times daily 07/07 BENZONATATE 90218707988 No Longer Active Bertrand Patel DO Ac tive NEBULIZER MISC use as directed NEBULIZERS 936338 77760 No Longer Active Bertrand Patel DO Active ALBUTEROL SULFATE 0.083 % NEBU SOLN one vial per nebul izer every 4-6 hours as needed ALBUTEROL SULFATE 16546026203 No Longer Active Bertrand Patel DO Active SYMBICORT 160-4.5 MCG/ACT AERO 2 puffs BID BUDESONIDE- FORMOTEROL FUMARATE 18237239574 No Longer Active Bertrand Patel DO Ac tive PREDNISONE 20 MG TAB take 3 tabs daily for 3 days , 2 tabs daily for 3 days, 1 tab daily for 3 days, 1/2 tab daily for 3 days P REDNISONE 22732252210 No Longer Active Silvia Arnold APRN Active AZITHROMYCIN 250 MG ORAL TABS Take 2 tabs po today then 1 ta b po daily AZITHROMYCIN 64605394821 No Longer Active Silvia Jorge leslye TOVARN Active AUGMENTIN 875-125 MG TAB 1 po BID x 10 days AMOXICILLIN- POT CLAVULANATE 67618796858 No Longer Active Adriana Bender LPN Active CHEWABLE CALCIUM 500-200-40 MG-UNT-MCG ORAL CHEW 1 chew tab bid 201 11/03/03 CALCIUM-VITAMIN D-VITAMIN K 14634610680 Active Silvia Arnold APRN Active EQ COMPLETE MULTIVIT ADULT 50+ ORAL TABS 1 tab po bid MULTIPLE VITAMINS-MINERALS 72566499210 Active Silvia Arnold APRN Act jairo HYDROCODONE-ACETAMINOPHEN 7.5-325 MG TABS TAKE ONE TAB EVERY 6 HOURS BY MOUTH NEEDED FOR PAIN HYDROCODONE-ACETAMINOPHEN 10891586843 Acti raheel Mcmullen Active LORTAB 7.5-500 MG TABS take one po Q6 hours HYDROCODONE-ACETAMINOPHEN No Longer Active Nirmal Robbins RN Active [facility] MELATONIN 5-10 MG CR-TABS Take one by mouth daily at bedtime MELATONIN-PYRIDOXINE 64686294217 No Longer Active Bertrand Patel DO Active VITAMIN E 200 UNIT CAPS 1 cap po qd VITAMIN E 316 22076573 No Longer Active Bertrand Patel DO Active B-12 1000 MCG CAPS 1 tab daily CYANOCOBALAMIN 31 320532318 No Longer Active Bertrand Patel DO Active METFORMIN HCL 500 MG TABS 1 bid METFORMIN HCL 50175122448 No Longer Active Bertrand Patel DO Active FUROSEMIDE 20 MG TABS 1 pill by mouth daily if needed for edema FUROSEMIDE 24230476892 No Longer Active Bertrand Patel DO Act jairo PRAVASTATIN SODIUM 20 MG TABS 1 tablet by mouth daily at bedtime PRAVASTATIN SODIUM 65729586479 No Longer Active Bertrand Patel DO Active AUGMENTIN 875-125 MG TABS 1 pill by mouth twice daily AMOXICILLIN-POT CLAVULANATE 98539221785 No Longer Active Yoli Mercado MD PhD Active LEVAQUIN 500 MG TABS 1 pill by mouth daily LEVO FLOXACIN 96279010835 No Longer Active Yoli Mercado MD PhD Active AMLODIPINE BESYLATE 5 MG TABS 1 tablet by mouth daily for bl ood pressure AMLODIPINE BESYLATE 08868637036 Active Darlyn Monzon Active MICARDIS 80 MG TABS 1 tablet daily for blood pressure TELMISARTAN 61921899306 Active Bertrand Patel DO Active MICARDIS HCT 80-12.5 MG TABS 1 qd TELMISARTA N-HCTZ 93391651476 No Longer Active Bertrand Patel DO Active CINNAMON ALPHA LIPOIC AC CMPLX CAPS by mouth twice a d ay in AM by mouth twice a day in PM ALPHA LIPOIC [id number] CAPS 611216 26226 No Longer Active Bertrand Patel DO Active AZITHROMYCIN 500 MG SOLR 1 po q day AZITHROMYCI N 29064699383 No Longer Active Bertrand Patel DO Active CYMBALTA 30 MG CPEP 1 cap by mouth daily DULOXE CATHI HCL 27548938705 No Longer Active Bertrand Patel DO Active CYMBALTA 60 MG CPEP 1 cap by mouth daily DULOXE CATHI HCL 31749236914 Active Keysha Jones MA Active WELLBUTRIN 75 MG TABS 2 times daily BUPROPION H CL 41010552581 No Longer Active Bertrand W Jorge DO Active PROAIR HFA 108 (90 BASE) MCG/ACT AERS take one to two puffs po Q4-6 hour prn cough and shortness of breath ALBUTEROL SULFATE 9308020167 2 Active Silvia Arnold MARINE EXTENSION AGENT Active AZITHROMYCIN 250 MG TABS take 2 po today then take 1 po days 2-5 AZITHROMYCIN 42684930790 No Longer Active Adolfo OSORIO Active PERMETHRIN 5 % CREA apply neck to toes tonight a nd then rinse off in morning. repeat at 7 days PERMETHRIN 29795693738 No Longer Active Adolfo OSORIO Active AMOXICILLIN 500 MG CAPS 2 po BID x 10 days AMOX ICILLIN 99608577165 No Longer Active Yoli Mercado MD PhD Active ALPRAZOLAM 0.5 MG TAB 1 tab by mouth tid ALPRAZOL AM 15051923787 Active Nitza Mullins RPT,RMA Active INSUPEN ULTRAFIN 31G X 6 MM MISC USE DIRECTED 03/04 INSULIN PEN NEEDLE 71410727446 No Longer Active Bertrand Patel DO Active TRANSDERM-SCOP 1.5 MG PT72 1 patch applied behind ear q 3 day 20 04/13/28 SCOPOLAMINE BASE 11752829630 No Longer Active Bertrand Patel DO Active MACRODANTIN 100 MG CAPS one p.o. b.i.d. x2 weeks 03/04 NITROFURANTOIN MACROCRYSTAL 78282641884 No Longer Active Bertrand Patel DO Active MACRODANTIN 100 MG CAPS one p.o. b.i.d. x2 weeks 03/04 MACRODANTIN 100 MG CAPS 9716405 NITROFURANTOIN MACROCRYSTAL Inactive TRANSDERM-SCOP 1.5 MG PT72 [...] at 7 days PERMETHRIN 5 % CREA 501959 PERMETHRIN Inactive WELLBUTRIN 75 MG TABS 2 times daily WELLBUTRIN 75 MG TABS BUPROPION HCL Inactive CYMBALTA 30 MG CPEP 1 cap by mouth daily CYMBALTA 30 MG CPEP 081064 DULOXETINE HCL Inactive AZITHROMYCIN 500 MG SOLR 1 po q day ALTA THROMYCIN 500 MG SOLR 65715400560 AZITHROMYCIN Inactive CINNAMON ALPHA LIPOIC AC CMPLX CAPS by mouth twice a d ay in AM by mouth twice a day in PM CINNAMON ALPHA LIPOIC AC CMPLX CAPS ALPHA LIPOIC PZEU-IN-XTIVWKMC CAPS Inactive MICARDIS HCT 80-12.5 MG TABS 1 qd MICARDI S HCT 80-12.5 MG TABS 746111 TELMISARTAN-HCTZ Inactive PRAVASTATIN SODIUM 20 MG TABS 1 tablet by mouth daily at bedtime PRAVASTATIN SODIUM 20 MG TABS 518719 PRAVASTATIN SODIUM Inactive FUROSEMIDE 20 MG TABS 1 pill by mouth daily if needed for edema FUROSEMIDE 20 MG TABS 892750 FUROSEMIDE Inactive METFORMIN HCL 500 MG TABS 1 bid METFORMIN HCL 500 MG TABS 643013 METFORMIN HCL Inactive B-12 1000 MCG CAPS 1 tab daily B-12 1000 MCG CAP S CYANOCOBALAMIN Inactive VITAMIN E 200 UNIT CAPS 1 cap po qd VITAMIN E 2 00 UNIT CAPS 3735402 VITAMIN E Inactive [facility] MELATONIN 5-10 MG CR-TABS Take one by mouth daily at bedtime [facility] MELATONIN 5-10 MG CR-TABS MELATONIN-PYRIDOXI NE Inactive LORTAB 7.5-500 MG TABS take one po Q6 hours LORTAB 7.5-500 MG TABS HYDROCODONE-ACETAMINOPHEN Inactive AZITHROMYCIN 250 MG ORAL TABS Take 2 tabs po today then 1 ta b po daily AZITHROMYCIN 250 MG ORAL TABS 3942306 AZITHROMYCI N Inactive SYMBICORT 160-4.5 MCG/ACT AERO 2 puffs BID SYMBICORT 160- 4.5 MCG/ACT AERO BUDESONIDE-FORMOTEROL FUMARATE Inactive ALBUTEROL SULFATE 0.083 % NEBU SOLN one vial per nebul izer every 4-6 hours as needed ALBUTEROL SULFATE 0.083 % NEBU SOLN 72554 8 ALBUTEROL SULFATE Inactive NEBULIZER MISC use as directed NEBULIZER MISC NEBULIZERS Inactive TESSALON PERLES 100 MG CAP 1 tablet by mouth 3 times daily 07/07 TESSALON PERLES 100 MG CAP 347141 BENZONATATE Inact jairo CYCLOBENZAPRINE HCL 10 MG TABS Take 1 tab TID PRN for muscle pain CYCLOBENZAPRINE HCL 10 MG TABS 889921 CYCLOBENZAPRINE HCL Inactive AUGMENTIN 875-125 MG TAB 1 po BID x 10 days AUGMENTIN 875- 125 MG TAB 073419 AMOXICILLIN-POT CLAVULANATE Inactive BACTROBAN 2 % CREAM Apply to affected area BID for up to 10 days BACTROBAN 2 % CREAM 952318 MUPIROCIN CALCIUM Inactive AMOXICILLIN 500 MG CAPS 2 po BID x 10 days AMOXICILLIN 500 MG CAPS 551485 AMOXICILLIN Inactive AZITHROMYCIN 250 MG TABS take 2 po today then take 1 po days 2-5 AZITHROMYCIN 250 MG TABS 6456335 AZITHROMYCIN Inactiv e LEVAQUIN 500 MG TABS 1 pill by mouth daily LEVAQUIN 500 MG TABS 785868 LEVOFLOXACIN Inactive AUGMENTIN 875-125 MG TABS 1 pill by mouth twice daily AUGMENTIN 875-125 MG TABS 259947 AMOXICILLIN-POT CLAVULANATE Inacti ve AUGMENTIN 875-125 MG TAB 1 po BID x 10 days AUGMENTIN 875- 125 MG TAB 959513 AMOXICILLIN-POT CLAVULANATE Inactive PREDNISONE 20 MG TAB take 3 tabs daily for 3 days , 2 tabs daily for 3 days, 1 tab daily for 3 days, 1/2 tab daily for 3 days PREDNISONE 20 MG TAB 872544 PREDNISONE Inactive CIPRO 500 MG TAB 1 tablet by mouth twice daily CIPRO 500 MG TAB 808846 CIPROFLOXACIN HCL Inactive Vital Signs Date Name [...] 5.8 % 4.3-6.0 cholesterol, serum 200 mg/dL 552-379 9294/07/22 triglyceride, serum, fasting 56 mg/dL 30-200 HDL cholesterol, serum 80 mg/dL 32-96 LDL cholesterol, serum 109 mg/dL 0-130 albumin/creatinine ratio, urine < 30 mg/g mg/g{creat} 0-2 9 TSH 1.16 m[iU]/mL 0.36-3.74 sodium, serum 142 mmol/L 683-213 1776/07/22 carbon dioxide, venous blood 33.1 mmol/L 21.0-32 [...] 0-19 Encounters Code Encounter Date Provider Facility CPT-61397 Level 4 Est. Patient 12:31:54 CDT Bertrand marquez [facility] CPT-74278 Level 3 Est. Patient 11:27:00 IMAGING TECHNOLOGIST Ike Deluna MD [facility] CPT-12025 Level 3 Est. Patient 08:50:57 IMAGING TECHNOLOGIST Dangelo MARINE [employer] AGENT [facility] CPT-76714 Level 3 Est. Patient 10:04:13 CDT Bertrand marquez [facility] CPT-21849 Level 4 Est. Patient 16:02:10 IMAGING TECHNOLOGIST Dangelo BARAJAS [facility] CPT-94297 Level 3 Est. Patient 13:04:54 IMAGING TECHNOLOGIST Dangelo BARAJAS [facility] CPT-04277 Level 3 Est. Patient 12:56:37 CDT Bertrand marquez [facility] CPT-90522 Level 3 Est. Patient 19:12:03 CDT Yoli tolbert MD [facility]-86520 Level 3 Est. Patient 14:36:01 CDT Yoli tolbert MD [facility] CPT-74228 Level 2 Est. Patient 08:00:22 CDT Jcarlos dc MD [facility]-31531 Level 3 Est. Patient 19:06:55 CDT Bertrand marquez [facility] CPT-36438 Level 3 Est. Patient 10:08:23 IMAGING TECHNOLOGIST Bertrand marquez [facility] CPT-24866 Level 3 Est. Patient 16:37:54 IMAGING TECHNOLOGIST Bertrand marquez [facility] CPT-02894 Level 3 Est. Patient 11:31:59 IMAGING TECHNOLOGIST Bertrand marquez [facility] CPT-19067 Level 3 Est. Patient 10:20:08 CDT Adolfo villasenor [facility] CPT-31235 Level 3 Est. Patient 13:45:20 CDT Sanket Josekelvin buckley [facility] CPT-88824 Level 3 Est. Patient 12:51:06 CDT Adolfo villasenor [facility] CPT-57582 Level 3 Est. Patient 11:22:51 IMAGING TECHNOLOGIST Yoli tolbert MD [facility] CPT-44654 Level 3 Est. Patient 13:33:19 CDT Bertrand marquez [facility] Procedures Code Procedure Name Date Entry Date Standard Desc ription CPT-16652 Wound Culture - LAB USE ONLY 15:45:25 CDT 2 CPT-35957 Venipuncture Draw Fee 10:23:01 CDT CPT-J0696 Rocephin 1000 mg (Ceftriaxone) 16:20:30 IMAGING TECHNOLOGIST CPT-45584 Abx/Therapy Injection 16:20:29 IMAGING TECHNOLOGIST CPT-J0696 Rocephin 1gm Inj Solr 15:51:59 IMAGING TECHNOLOGIST CPT-16242 Chest 2V Frontal and Lat 15:20:28 IMAGING TECHNOLOGIST 07/22 CPT-80922 Breathing Tx 14:51:55 IMAGING TECHNOLOGIST CPT-52034 Breathing Tx 09:57:16 IMAGING TECHNOLOGIST CPT-53904 Knee comp 4/> V 11:58:06 IMAGING TECHNOLOGIST
--- OUTSIDE RECORDS SUMMARY | 2019-11-13 10:35 | XMS REPORT | Clinical Summary ---
Author Author Admin, Enrique Adamson Organization [facility] Address Unknown Phone Unavailable Allergies, [...] NDC Status Provider Patient Instruction VITAMIN D3 02486 UNIT CAPS 1 pill Week x 4 months for vitamin D deficiency/osteoporosis CHOLECALCIFEROL 66572793104 Active Darlyn Monzon Active BENZONATATE 200 MG ORAL CAPS 1 three times a day as needed for c ough BENZONATATE 30705049674 Active Ike Deluna MD Acti ve ZITHROMAX Z-MARTIN 250 MG TABS 2 today and then 1 daily for 4 days 201 12/01/06 AZITHROMYCIN 25614805163 Active Ike Deluna MD Active ADDERALL 10 MG ORAL TABS 1 tab twice daily AMPHETAMINE-DEXTROAMPHETAMINE 86120685252 Active Ike Deluna MD Active BACTROBAN 2 % CREAM Apply to affected area BID for up to 10 days MUPIROCIN CALCIUM 55713757528 No Longer Active Ike Deluna MD Active CIPRO 500 MG TAB 1 tablet by mouth twice daily CIPROFLOXACIN HCL 90535831883 No Longer Active Adriana Bender LPN Active AUGMENTIN 875-125 MG TAB 1 po BID x 10 days AMOXICILLIN- POT CLAVULANATE 75273029763 No Longer Active Adriana Bender LPN Active MODAFINIL 200 MG ORAL TABS Take 1/2 tab po in the am and 1/2 tab po at noon MODAFINIL 49788530308 Active Darlyn Monzon A ctive CYCLOBENZAPRINE HCL 10 MG TABS Take 1 tab TID PRN for muscle pain CYCLOBENZAPRINE HCL 82190274743 No Longer Active Bertrand Patel DO Ac tive TESSALON PERLES 100 MG CAP 1 tablet by mouth 3 times daily 07/07 BENZONATATE 27042787114 No Longer Active Bertrand Patel DO Ac tive NEBULIZER MISC use as directed NEBULIZERS 209930 41996 No Longer Active Bertrand Patel DO Active ALBUTEROL SULFATE 0.083 % NEBU SOLCammy one vial per nebul izer every 4-6 hours as needed ALBUTEROL SULFATE 90251918128 No Longer Active Bertrand Patel DO Active SYMBICORT 160-4.5 MCG/ACT AERO 2 puffs BID BUDESONIDE- FORMOTEROL FUMARATE 50305464438 No Longer Active Bertrand Patel DO Ac tive PREDNISONE 20 MG TAB take 3 tabs daily for 3 days , 2 tabs daily for 3 days, 1 tab daily for 3 days, 1/2 tab daily for 3 days P REDNISONE 52504559166 No Longer Active Silvia Arnold APRN Active AZITHROMYCIN 250 MG ORAL TABS Take 2 tabs po today then 1 ta b po daily AZITHROMYCIN 34608463137 No Longer Active Silvia Jorge leslye TOVARN Active AUGMENTIN 875-125 MG TAB 1 po BID x 10 days AMOXICILLIN- POT CLAVULANATE 79374021934 No Longer Active Adriana Bender LPN Active CHEWABLE CALCIUM 500-200-40 MG-UNT-MCG ORAL CHEW 1 chew tab bid 201 11/03/03 CALCIUM-VITAMIN D-VITAMIN K 46137002423 Active Silvia Arnold APRN Active EQ COMPLETE MULTIVIT ADULT 50+ ORAL TABS 1 tab po bid MULTIPLE VITAMINS-MINERALS 51360731827 Active Silvia Arnold APRN Act jairo HYDROCODONE-ACETAMINOPHEN 7.5-325 MG TABS TAKE ONE TAB EVERY 6 HOURS BY MOUTH NEEDED FOR PAIN HYDROCODONE-ACETAMINOPHEN 62115889794 Acti raheel Mcmullen Active LORTAB 7.5-500 MG TABS take one po Q6 hours HYDROCODONE-ACETAMINOPHEN No Longer Active Nirmal Robbins RN Active [facility] MELATONIN 5-10 MG CR-TABS Take one by mouth daily at bedtime MELATONIN-PYRIDOXINE 05651723088 No Longer Active Bertrand Patel DO Active VITAMIN E 200 UNIT CAPS 1 cap po qd VITAMIN E 316 37867457 No Longer Active Bertrand Patel DO Active B-12 1000 MCG CAPS 1 tab daily CYANOCOBALAMIN 31 481368700 No Longer Active Bertrand Patel DO Active METFORMIN HCL 500 MG TABS 1 bid METFORMIN HCL 03284566700 No Longer Active Bertrand Patel DO Active FUROSEMIDE 20 MG TABS 1 pill by mouth daily if needed for edema FUROSEMIDE 24937511654 No Longer Active Bertrand Patel DO Act jairo PRAVASTATIN SODIUM 20 MG TABS 1 tablet by mouth daily at bedtime PRAVASTATIN SODIUM 77649430051 No Longer Active Bertrand Patel DO Active AUGMENTIN 875-125 MG TABS 1 pill by mouth twice daily AMOXICILLIN-POT CLAVULANATE 75200786469 No Longer Active Yoli Mercado MD PhD Active LEVAQUIN 500 MG TABS 1 pill by mouth daily LEVO FLOXACIN 17966626091 No Longer Active Yoli Mercado MD PhD Active AMLODIPINE BESYLATE 5 MG TABS 1 tablet by mouth daily for bl ood pressure AMLODIPINE BESYLATE 39651868950 Active Darlyn Monzon Active MICARDIS 80 MG TABS 1 tablet daily for blood pressure TELMISARTAN 06766426609 Active Darlyn Monzon Active MICARDIS HCT 80-12.5 MG TABS 1 qd TELMISARTA N-HCTZ 48245868264 No Longer Active Bertrand Patel DO Active CINNAMON ALPHA LIPOIC AC CMPLX CAPS by mouth twice a d ay in AM by mouth twice a day in PM ALPHA LIPOIC [id number] CAPS 047652 12976 No Longer Active Bertrand Patel DO Active AZITHROMYCIN 500 MG SOLR 1 po q day AZITHROMYCI N 23673550938 No Longer Active Bertrand Patel DO Active CYMBALTA 30 MG CPEP 1 cap by mouth daily DULOXE CATHI HCL 39807750265 No Longer Active Bertrand Patel DO Active CYMBALTA 60 MG CPEP 1 cap by mouth daily DULOXE CATHI HCL 48699450123 Active Keysha Jones MA Active WELLBUTRIN 75 MG TABS 2 times daily BUPROPION H CL 59128917594 No Longer Active Bertrand W Jorge DO Active PROAIR HFA 108 (90 BASE) MCG/ACT AERS take one to two puffs po Q4-6 hour prn cough and shortness of breath ALBUTEROL SULFATE 4513195528 2 Active Silvia Arnold [employer] Active AZITHROMYCIN 250 MG TABS take 2 po today then take 1 po days 2-5 AZITHROMYCIN 06537122060 No Longer Active Adolfo OSORIO Active PERMETHRIN 5 % CREA apply neck to toes tonight a nd then rinse off in morning. repeat at 7 days PERMETHRIN 10529430582 No Longer Active Adolfo OSORIO Active AMOXICILLIN 500 MG CAPS 2 po BID x 10 days AMOX ICILLIN 82984385897 No Longer Active Yoli Mercado MD PhD Active ALPRAZOLAM 0.5 MG TAB 1 tab by mouth tid ALPRAZOL AM 89240953942 Active Nitza Mullins RPT,RMA Active INSUPEN ULTRAFIN 31G X 6 MM MISC USE DIRECTED 03/04 INSULIN PEN NEEDLE 58256346170 No Longer Active Bertrand Patel DO Active TRANSDERM-SCOP 1.5 MG PT72 1 patch applied behind ear q 3 day 20 04/13/28 SCOPOLAMINE BASE 53385180490 No Longer Active Bertrand Patel DO Active MACRODANTIN 100 MG CAPS one p.o. b.i.d. x2 weeks 03/04 NITROFURANTOIN MACROCRYSTAL 41239001271 No Longer Active Bertrand Patel DO Active MACRODANTIN 100 MG CAPS one p.o. b.i.d. x2 weeks 03/04 MACRODANTIN 100 MG CAPS 5612173 NITROFURANTOIN MACROCRYSTAL Inactive TRANSDERM-SCOP 1.5 MG PT72 [...] at 7 days PERMETHRIN 5 % CREA 651411 PERMETHRIN Inactive WELLBUTRIN 75 MG TABS 2 times daily WELLBUTRIN 75 MG TABS BUPROPION HCL Inactive CYMBALTA 30 MG CPEP 1 cap by mouth daily CYMBALTA 30 MG CPEP 683133 DULOXETINE HCL Inactive AZITHROMYCIN 500 MG SOLR 1 po q day ALTA THROMYCIN 500 MG SOLR 08912894650 AZITHROMYCIN Inactive CINNAMON ALPHA LIPOIC AC CMPLX CAPS by mouth twice a d ay in AM by mouth twice a day in PM CINNAMON ALPHA LIPOIC AC CMPLX CAPS ALPHA LIPOIC [id number] CAPS Inactive MICARDIS HCT 80-12.5 MG TABS 1 qd MICARDI S HCT 80-12.5 MG TABS 401164 TELMISARTAN-HCTZ Inactive PRAVASTATIN SODIUM 20 MG TABS 1 tablet by mouth daily at bedtime PRAVASTATIN SODIUM 20 MG TABS 907856 PRAVASTATIN SODIUM Inactive FUROSEMIDE 20 MG TABS 1 pill by mouth daily if needed for edema FUROSEMIDE 20 MG TABS 338496 FUROSEMIDE Inactive METFORMIN HCL 500 MG TABS 1 bid METFORMIN HCL 500 MG TABS 646384 METFORMIN HCL Inactive B-12 1000 MCG CAPS 1 tab daily B-12 1000 MCG CAP S CYANOCOBALAMIN Inactive VITAMIN E 200 UNIT CAPS 1 cap po qd VITAMIN E 2 00 UNIT CAPS 8405931 VITAMIN E Inactive [facility] MELATONIN 5-10 MG CR-TABS Take one by mouth daily at bedtime [facility] MELATONIN 5-10 MG CR-TABS MELATONIN-PYRIDOXI NE Inactive LORTAB 7.5-500 MG TABS take one po Q6 hours LORTAB 7.5-500 MG TABS HYDROCODONE-ACETAMINOPHEN Inactive AZITHROMYCIN 250 MG ORAL TABS Take 2 tabs po today then 1 ta b po daily AZITHROMYCIN 250 MG ORAL TABS 3923574 AZITHROMYCI N Inactive SYMBICORT 160-4.5 MCG/ACT AERO 2 puffs BID SYMBICORT 160- 4.5 MCG/ACT AERO BUDESONIDE-FORMOTEROL FUMARATE Inactive ALBUTEROL SULFATE 0.083 % NEBU SOLN one vial per nebul izer every 4-6 hours as needed ALBUTEROL SULFATE 0.083 % NEBU SOLN 11287 8 ALBUTEROL SULFATE Inactive NEBULIZER MISC use as directed NEBULIZER MISC NEBULIZERS Inactive TESSALON PERLES 100 MG CAP 1 tablet by mouth 3 times daily 07/07 TESSALON PERLES 100 MG CAP 652091 BENZONATATE Inact jairo CYCLOBENZAPRINE HCL 10 MG TABS Take 1 tab TID PRN for muscle pain CYCLOBENZAPRINE HCL 10 MG TABS 325488 CYCLOBENZAPRINE HCL Inactive AUGMENTIN 875-125 MG TAB 1 po BID x 10 days AUGMENTIN 875- 125 MG TAB 101939 AMOXICILLIN-POT CLAVULANATE Inactive BACTROBAN 2 % CREAM Apply to affected area BID for up to 10 days BACTROBAN 2 % CREAM 285720 MUPIROCIN CALCIUM Inactive AMOXICILLIN 500 MG CAPS 2 po BID x 10 days AMOXICILLIN 500 MG CAPS 429884 AMOXICILLIN Inactive AZITHROMYCIN 250 MG TABS take 2 po today then take 1 po days 2-5 AZITHROMYCIN 250 MG TABS 6446680 AZITHROMYCIN Inactiv e LEVAQUIN 500 MG TABS 1 pill by mouth daily LEVAQUIN 500 MG TABS 788819 LEVOFLOXACIN Inactive AUGMENTIN 875-125 MG TABS 1 pill by mouth twice daily AUGMENTIN 875-125 MG TABS 764835 AMOXICILLIN-POT CLAVULANATE Inacti ve AUGMENTIN 875-125 MG TAB 1 po BID x 10 days AUGMENTIN 875- 125 MG TAB 989035 AMOXICILLIN-POT CLAVULANATE Inactive PREDNISONE 20 MG TAB take 3 tabs daily for 3 days , 2 tabs daily for 3 days, 1 tab daily for 3 days, 1/2 tab daily for 3 days PREDNISONE 20 MG TAB 546308 PREDNISONE Inactive CIPRO 500 MG TAB 1 tablet by mouth twice daily CIPRO 500 MG TAB 139087 CIPROFLOXACIN HCL Inactive Vital Signs Date Name [...] 1.16 m[iU]/mL 0.36-3.74 sodium, serum 142 mmol/L 772-939 6747/07/22 carbon dioxide, venous blood 33.1 mmol/L 21.0-32 [...] 5.8 % 4.3-6.0 cholesterol, serum 200 mg/dL 013-190 0709/07/22 triglyceride, serum, fasting 56 mg/dL 30-200 HDL [...] 0-19 Encounters Code Encounter Date Provider Facility CPT-66849 Level 4 Est. Patient 12:31:54 CDT Bertrand marquez [facility] CPT-39488 Level 3 Est. Patient 11:27:00 CERTIFIED FIRE INVESTIGATOR Ike Deluna MD [facility] CPT-23760 Level 3 Est. Patient 08:50:57 CERTIFIED FIRE INVESTIGATOR Dangelo [employer] [facility] CPT-80723 Level 3 Est. Patient 10:04:13 CDT Bertrand marquez [facility] CPT-80865 Level 4 Est. Patient 16:02:10 CERTIFIED FIRE INVESTIGATOR Dangelo [employer] [facility] CPT-87104 Level 3 Est. Patient 13:04:54 CERTIFIED FIRE INVESTIGATOR Dangelo [employer] [facility] CPT-18859 Level 3 Est. Patient 12:56:37 CDT Bertrand marquez [facility] CPT-10045 Level 3 Est. Patient 19:12:03 CDT Yoli tolbert MD [facility] CPT-54244 Level 3 Est. Patient 14:36:01 CDT Yoli tolbert MD [facility] CPT-15470 Level 2 Est. Patient 08:00:22 CDT Jcarlos dc MD [facility] CPT-02482 Level 3 Est. Patient 19:06:55 CDT Bertrand marquez [facility] CPT-01644 Level 3 Est. Patient 10:08:23 CERTIFIED FIRE INVESTIGATOR Bertrand marquez [facility] CPT-57925 Level 3 Est. Patient 16:37:54 CERTIFIED FIRE INVESTIGATOR Bertrand marquez [facility] CPT-17475 Level 3 Est. Patient 11:31:59 CERTIFIED FIRE INVESTIGATOR Bertrand marquez [facility] CPT-87498 Level 3 Est. Patient 10:20:[address] [facility] CPT-63740 Level 3 Est. Patient 13:45:[address] [facility] CPT-97785 Level 3 Est. Patient 12:51:[address] [facility] CPT-73867 Level 3 Est. Patient 11:22:51 CERTIFIED FIRE INVESTIGATOR Yoli tolbert MD [facility] CPT-79569 Level 3 Est. Patient 13:33:19 CDT Bertrand marquez [facility] Procedures Code Procedure Name Date Entry Date Standard Desc ription CPT-78887 Wound Culture - LAB USE ONLY 15:45:25 CDT 2 CPT-01461 Venipuncture Draw Fee 10:23:01 CDT CPT-J0696 Rocephin 1000 mg (Ceftriaxone) 16:20:30 CERTIFIED FIRE INVESTIGATOR CPT-95922 Abx/Therapy Injection 16:20:29 CERTIFIED FIRE INVESTIGATOR CPT-J0696 Rocephin 1gm Inj Solr 15:51:59 CERTIFIED FIRE INVESTIGATOR CPT-17631 Chest 2V Frontal and Lat 15:20:28 CERTIFIED FIRE INVESTIGATOR 07/22 CPT-37286 Breathing Tx 14:51:55 CERTIFIED FIRE INVESTIGATOR CPT-77909 Breathing Tx 09:57:16 CERTIFIED FIRE INVESTIGATOR CPT-39015 Knee comp 4/> V 11:58:06 CERTIFIED FIRE INVESTIGATOR
--- OUTSIDE RECORDS SUMMARY | 2019-11-13 10:36 | XMS REPORT | Clinical Summary ---
Author Author Admin, Enrique Adamson Organization [facility] Address Unknown Phone Unavailable Allergies, [...] NDC Status Provider Patient Instruction VITAMIN D3 45172 UNIT CAPS 1 pill Week x 4 months for vitamin D deficiency/osteoporosis CHOLECALCIFEROL 83694315527 Active Darlyn Monzon Active BENZONATATE 200 MG ORAL CAPS 1 three times a day as needed for c ough BENZONATATE 86714269843 Active Ike Deluna MD Acti ve ZITHROMAX Z-MARTIN 250 MG TABS 2 today and then 1 daily for 4 days 201 12/01/06 AZITHROMYCIN 64053896652 Active Ike Deluna MD Active ADDERALL 10 MG ORAL TABS 1 tab twice daily AMPHETAMINE-DEXTROAMPHETAMINE 04206678564 Active Ike Deluna MD Active BACTROBAN 2 % CREAM Apply to affected area BID for up to 10 days MUPIROCIN CALCIUM 35987696031 No Longer Active Ike Deluna MD Active CIPRO 500 MG TAB 1 tablet by mouth twice daily CIPROFLOXACIN HCL 82832457451 No Longer Active Adriana Bender LPN Active AUGMENTIN 875-125 MG TAB 1 po BID x 10 days AMOXICILLIN- POT CLAVULANATE 85001621038 No Longer Active Adriana Bender LPN Active MODAFINIL 200 MG ORAL TABS Take 1/2 tab po in the am and 1/2 tab po at noon MODAFINIL 73227435924 Active Bertrand Patel DO Ac tive CYCLOBENZAPRINE HCL 10 MG TABS Take 1 tab TID PRN for muscle pain CYCLOBENZAPRINE HCL 00366583066 No Longer Active Bertrand Patel DO Ac tive TESSALON PERLES 100 MG CAP 1 tablet by mouth 3 times daily 07/07 BENZONATATE 07261765079 No Longer Active Bertrand Patel DO Ac tive NEBULIZER MISC use as directed NEBULIZERS 414687 53126 No Longer Active Bertrand Patel DO Active ALBUTEROL SULFATE 0.083 % NEBU SOLCammy one vial per nebul izer every 4-6 hours as needed ALBUTEROL SULFATE 23901840922 No Longer Active Bertrand Patel DO Active SYMBICORT 160-4.5 MCG/ACT AERO 2 puffs BID BUDESONIDE- FORMOTEROL FUMARATE 82637182957 No Longer Active Bertrand Patel DO Ac tive PREDNISONE 20 MG TAB take 3 tabs daily for 3 days , 2 tabs daily for 3 days, 1 tab daily for 3 days, 1/2 tab daily for 3 days P REDNISONE 59981523001 No Longer Active Silvia Arnold APRN Active AZITHROMYCIN 250 MG ORAL TABS Take 2 tabs po today then 1 ta b po daily AZITHROMYCIN 48215874274 No Longer Active Silvia Jorge gavin B[employer]ALL CLUB MANAGER Active AUGMENTIN 875-125 MG TAB 1 po BID x 10 days AMOXICILLIN- POT CLAVULANATE 92996822065 No Longer Active Adriana Bender LPN Active CHEWABLE CALCIUM 500-200-40 MG-UNT-MCG ORAL CHEW 1 chew tab bid 201 11/03/03 CALCIUM-VITAMIN D-VITAMIN K 68063551246 Active Silvia Arnold APRN Active EQ COMPLETE MULTIVIT ADULT 50+ ORAL TABS 1 tab po bid MULTIPLE VITAMINS-MINERALS 48593881297 Active Silvia Arnold APRN Act jairo HYDROCODONE-ACETAMINOPHEN 7.5-325 MG TABS TAKE ONE TAB EVERY 6 HOURS BY MOUTH NEEDED FOR PAIN HYDROCODONE-ACETAMINOPHEN 32453969532 Acti ve Bertrand Patel DO Active LORTAB 7.5-500 MG TABS take one po Q6 hours HYDROCODONE-ACETAMINOPHEN No Longer Active Nirmal Robbins RN Active [facility] MELATONIN 5-10 MG CR-TABS Take one by mouth daily at bedtime MELATONIN-PYRIDOXINE 28723702540 No Longer Active Bertrand Patel DO Active VITAMIN E 200 UNIT CAPS 1 cap po qd VITAMIN E 316 00491607 No Longer Active Bertrand Patel DO Active B-12 1000 MCG CAPS 1 tab daily CYANOCOBALAMIN 31 307879968 No Longer Active Bertrand Patel DO Active METFORMIN HCL 500 MG TABS 1 bid METFORMIN HCL 90738392086 No Longer Active Bertrand Patel DO Active FUROSEMIDE 20 MG TABS 1 pill by mouth daily if needed for edema FUROSEMIDE 41638943387 No Longer Active Bertrand Patel DO Act jairo PRAVASTATIN SODIUM 20 MG TABS 1 tablet by mouth daily at bedtime PRAVASTATIN SODIUM 95697270394 No Longer Active Bertrand Patel DO Active AUGMENTIN 875-125 MG TABS 1 pill by mouth twice daily AMOXICILLIN-POT CLAVULANATE 21489764323 No Longer Active Yoli Mercado MD PhD Active LEVAQUIN 500 MG TABS 1 pill by mouth daily LEVO FLOXACIN 53986900750 No Longer Active Yoli Mercado MD PhD Active AMLODIPINE BESYLATE 5 MG TABS 1 tablet by mouth daily for bl ood pressure AMLODIPINE BESYLATE 53106205001 Active Darlyn Monzon Active MICARDIS 80 MG TABS 1 tablet daily for blood pressure TELMISARTAN 96909491112 Active Bertrand Patel DO Active MICARDIS HCT 80-12.5 MG TABS 1 qd TELMISARTA N-HCTZ 04122928086 No Longer Active Bertrand Patel DO Active CINNAMON ALPHA LIPOIC AC CMPLX CAPS by mouth twice a d ay in AM by mouth twice a day in PM ALPHA LIPOIC [id number] CAPS 139529 88162 No Longer Active Bertrand Patel DO Active AZITHROMYCIN 500 MG SOLR 1 po q day AZITHROMYCI N 36398177975 No Longer Active Bertrand Patel DO Active CYMBALTA 30 MG CPEP 1 cap by mouth daily DULOXE CATHI HCL 69057345501 No Longer Active Bertrand Patel DO Active CYMBALTA 60 MG CPEP 1 cap by mouth daily DULOXE CATHI HCL 24382023721 Active Keysha Jones MA Active WELLBUTRIN 75 MG TABS 2 times daily BUPROPION H CL 12251689708 No Longer Active Bertrand W Jorge DO Active PROAIR HFA 108 (90 BASE) MCG/ACT AERS take one to two puffs po Q4-6 hour prn cough and shortness of breath ALBUTEROL SULFATE 4027018795 2 Active Silvia Arnold B[employer]BALL CLUB MANAGER Active AZITHROMYCIN 250 MG TABS take 2 po today then take 1 po days 2-5 AZITHROMYCIN 39378850718 No Longer Active Adolfo OSORIO Active PERMETHRIN 5 % CREA apply neck to toes tonight a nd then rinse off in morning. repeat at 7 days PERMETHRIN 46046027828 No Longer Active Adolfo OSORIO Active AMOXICILLIN 500 MG CAPS 2 po BID x 10 days AMOX ICILLIN 65065621187 No Longer Active Yoli Mercado MD PhD Active ALPRAZOLAM 0.5 MG TAB 1 tab by mouth tid ALPRAZOL AM 69538740184 Active Nitza Mullins VELVET CUTTER Active INSUPEN ULTRAFIN 31G X 6 MM MISC USE DIRECTED 03/04 INSULIN PEN NEEDLE 42578690906 No Longer Active Bertrand Patel DO Active TRANSDERM-SCOP 1.5 MG PT72 1 patch applied behind ear q 3 day 20 04/13/28 SCOPOLAMINE BASE 27802595037 No Longer Active Bertrand Patel DO Active MACRODANTIN 100 MG CAPS one p.o. b.i.d. x2 weeks 03/04 NITROFURANTOIN MACROCRYSTAL 21956009445 No Longer Active Bertrand Patel DO Active MACRODANTIN 100 MG CAPS one p.o. b.i.d. x2 weeks 03/04 MACRODANTIN 100 MG CAPS 2232637 NITROFURANTOIN MACROCRYSTAL Inactive TRANSDERM-SCOP 1.5 MG PT72 [...] at 7 days PERMETHRIN 5 % CREA 598834 PERMETHRIN Inactive WELLBUTRIN 75 MG TABS 2 times daily WELLBUTRIN 75 MG TABS BUPROPION HCL Inactive CYMBALTA 30 MG CPEP 1 cap by mouth daily CYMBALTA 30 MG CPEP 504031 DULOXETINE HCL Inactive AZITHROMYCIN 500 MG SOLR 1 po q day ALTA THROMYCIN 500 MG SOLR 74221002264 AZITHROMYCIN Inactive CINNAMON ALPHA LIPOIC AC CMPLX CAPS by mouth twice a d ay in AM by mouth twice a day in PM CINNAMON ALPHA LIPOIC AC CMPLX CAPS ALPHA LIPOIC [id number] CAPS Inactive MICARDIS HCT 80-12.5 MG TABS 1 qd MICARDI S HCT 80-12.5 MG TABS 058712 TELMISARTAN-HCTZ Inactive PRAVASTATIN SODIUM 20 MG TABS 1 tablet by mouth daily at bedtime PRAVASTATIN SODIUM 20 MG TABS 053314 PRAVASTATIN SODIUM Inactive FUROSEMIDE 20 MG TABS 1 pill by mouth daily if needed for edema FUROSEMIDE 20 MG TABS 533697 FUROSEMIDE Inactive METFORMIN HCL 500 MG TABS 1 bid METFORMIN HCL 500 MG TABS 679619 METFORMIN HCL Inactive B-12 1000 MCG CAPS 1 tab daily B-12 1000 MCG CAP S CYANOCOBALAMIN Inactive VITAMIN E 200 UNIT CAPS 1 cap po qd VITAMIN E 2 00 UNIT CAPS 7501201 VITAMIN E Inactive [facility] MELATONIN 5-10 MG CR-TABS Take one by mouth daily at bedtime [facility] MELATONIN 5-10 MG CR-TABS MELATONIN-PYRIDOXI NE Inactive LORTAB 7.5-500 MG TABS take one po Q6 hours LORTAB 7.5-500 MG TABS HYDROCODONE-ACETAMINOPHEN Inactive AZITHROMYCIN 250 MG ORAL TABS Take 2 tabs po today then 1 ta b po daily AZITHROMYCIN 250 MG ORAL TABS 3619072 AZITHROMYCI N Inactive SYMBICORT 160-4.5 MCG/ACT AERO 2 puffs BID SYMBICORT 160- 4.5 MCG/ACT AERO BUDESONIDE-FORMOTEROL FUMARATE Inactive ALBUTEROL SULFATE 0.083 % NEBU SOLN one vial per nebul izer every 4-6 hours as needed ALBUTEROL SULFATE 0.083 % NEBU SOLN 89001 8 ALBUTEROL SULFATE Inactive NEBULIZER MISC use as directed NEBULIZER MISC NEBULIZERS Inactive TESSALON PERLES 100 MG CAP 1 tablet by mouth 3 times daily 07/07 TESSALON PERLES 100 MG CAP 893503 BENZONATATE Inact jairo CYCLOBENZAPRINE HCL 10 MG TABS Take 1 tab TID PRN for muscle pain CYCLOBENZAPRINE HCL 10 MG TABS 168029 CYCLOBENZAPRINE HCL Inactive AUGMENTIN 875-125 MG TAB 1 po BID x 10 days AUGMENTIN 875- 125 MG TAB 478529 AMOXICILLIN-POT CLAVULANATE Inactive BACTROBAN 2 % CREAM Apply to affected area BID for up to 10 days BACTROBAN 2 % CREAM 611561 MUPIROCIN CALCIUM Inactive AMOXICILLIN 500 MG CAPS 2 po BID x 10 days AMOXICILLIN 500 MG CAPS 184189 AMOXICILLIN Inactive AZITHROMYCIN 250 MG TABS take 2 po today then take 1 po days 2-5 AZITHROMYCIN 250 MG TABS 3191792 AZITHROMYCIN Inactiv e LEVAQUIN 500 MG TABS 1 pill by mouth daily LEVAQUIN 500 MG TABS 321149 LEVOFLOXACIN Inactive AUGMENTIN 875-125 MG TABS 1 pill by mouth twice daily AUGMENTIN 875-125 MG TABS 952912 AMOXICILLIN-POT CLAVULANATE Inacti ve AUGMENTIN 875-125 MG TAB 1 po BID x 10 days AUGMENTIN 875- 125 MG TAB 822409 AMOXICILLIN-POT CLAVULANATE Inactive PREDNISONE 20 MG TAB take 3 tabs daily for 3 days , 2 tabs daily for 3 days, 1 tab daily for 3 days, 1/2 tab daily for 3 days PREDNISONE 20 MG TAB 180629 PREDNISONE Inactive CIPRO 500 MG TAB 1 tablet by mouth twice daily CIPRO 500 MG TAB 270193 CIPROFLOXACIN HCL Inactive Vital Signs Date Name [...] 4.3-6.0 Encounters Code Encounter Date Provider Facility CPT-39751 Level 4 Est. Patient 12:31:54 CDT Bertrand marquez [facility] CPT-11148 Level 3 Est. Patient 11:27:00 MECHANICAL RELIABILITY ENGINEER Ike Deluna MD [facility]-46972 Level 3 Est. Patient 08:50:57 MECHANICAL RELIABILITY ENGINEER Dangelo [employer] MANAGER [facility] CPT-88947 Level 3 Est. Patient 10:04:13 CDT Bertrand marquez [facility] CPT-70831 Level 4 Est. Patient 16:02:10 MECHANICAL RELIABILITY ENGINEER Dangelo [employer] MANAGER [facility] CPT-84937 Level 3 Est. Patient 13:04:54 MECHANICAL RELIABILITY ENGINEER Dangelo [employer] MANAGER [facility]-69556 Level 3 Est. Patient 12:56:37 CDT Bertrand marquez [facility] CPT-37945 Level 3 Est. Patient 19:12:03 CDT Yoli tolbert MD [facility] CPT-52914 Level 3 Est. Patient 14:36:01 CDT Yoli tolbert MD [facility]-24434 Level 2 Est. Patient 08:00:22 CDT Jcarlos dc MD [facility]-06696 Level 3 Est. Patient 19:06:55 CDT Bertrand marquez [facility] CPT-96622 Level 3 Est. Patient 10:08:23 MECHANICAL RELIABILITY ENGINEER Bertrand marquez [facility]-81691 Level 3 Est. Patient 16:37:54 MECHANICAL RELIABILITY ENGINEER Bertrand marquez [facility] CPT-42418 Level 3 Est. Patient 11:31:59 MECHANICAL RELIABILITY ENGINEER Bertrand marquez [facility] CPT-52048 Level 3 Est. Patient 10:20:08 CDT Adolfo OSORIO [facility]-57262 Level 3 Est. Patient 13:45:20 CDT Sanket Ankit buckley [facility] CPT-71586 Level 3 Est. Patient 12:51:06 CDT Adolfo Monroyridge villasenor [facility] CPT-41875 Level 3 Est. Patient 11:22:51 MECHANICAL RELIABILITY ENGINEER Yoli tolbert MD PhD [facility] CPT-32548 Level 3 Est. Patient 13:33:19 CDT Bertrand Sabillon ee DO [facility] Procedures Code Procedure Name Date Entry Date Standard Desc ription CPT-36735 Wound Culture - LAB USE ONLY 15:45:25 CDT 2 CPT-49980 Venipuncture Draw Fee 10:23:01 CDT CPT-J0696 Rocephin 1000 mg (Ceftriaxone) 16:20:30 MECHANICAL RELIABILITY ENGINEER CPT-91750 Abx/Therapy Injection 16:20:29 MECHANICAL RELIABILITY ENGINEER CPT-J0696 Rocephin 1gm Inj Solr 15:51:59 MECHANICAL RELIABILITY ENGINEER CPT-35990 Chest 2V Frontal and Lat 15:20:28 MECHANICAL RELIABILITY ENGINEER 07/22 CPT-09865 Breathing Tx 14:51:55 MECHANICAL RELIABILITY ENGINEER CPT-46847 Breathing Tx 09:57:16 MECHANICAL RELIABILITY ENGINEER CPT-02264 Knee comp 4/> V 11:58:06 MECHANICAL RELIABILITY ENGINEER
--- OUTSIDE RECORDS SUMMARY | 2019-11-13 10:36 | XMS REPORT | Clinical Summary ---
Author Author Admin, Enrique Adamson Organization [facility] Address Unknown Phone Unavailable Allergies, Adverse Reactions, [...] Cough SINUSITIS, ACUTE 461.9 Active Silvia PARISI tipple supervisor sinusitis, unspecified Fatigue 780.79 Active Silvia Arnold [...] tablet by mouth twice daily CIPROFLOXACIN HCL 46691842759 No Longer Active Adriana Bender LPN Active AUGMENTIN 875-125 MG TAB 1 po BID x 10 days AMOXICILLIN- POT CLAVULANATE 34973134473 No Longer Active Adriana Bender LPN Active BACTROBAN 2 % CREAM Apply to affected area BID for up to 10 days 20 18/03/27 MUPIROCIN CALCIUM 81017078313 Active Silvia Arnold APRN Act jairo MODAFINIL 200 MG ORAL TABS Take 1/2 tab po in the am and 1/2 tab po at noon MODAFINIL 31747351841 Active Silvia Arnold APRN Active CYCLOBENZAPRINE HCL 10 MG TABS Take 1 tab TID PRN for muscle pain CYCLOBENZAPRINE HCL 51201274266 No Longer Active Bertrand Patel DO Ac tive TESSALON PERLES 100 MG CAP 1 tablet by mouth 3 times daily 07/07 BENZONATATE 21321665159 No Longer Active Bertrand Patel DO Ac tive NEBULIZER MISC use as directed NEBULIZERS 651694 65403 No Longer Active Bertrand Patel DO Active ALBUTEROL SULFATE 0.083 % NEBU SOLN one vial per nebul izer every 4-6 hours as needed ALBUTEROL SULFATE 84425961019 No Longer Active Bertrand Patel DO Active SYMBICORT 160-4.5 MCG/ACT AERO 2 puffs BID BUDESONIDE- FORMOTEROL FUMARATE 67195893234 No Longer Active Bertrand Patel DO Ac tive PREDNISONE 20 MG TAB take 3 tabs daily for 3 days , 2 tabs daily for 3 days, 1 tab daily for 3 days, 1/2 tab daily for 3 days P REDNISONE 52074493416 No Longer Active Silvia Arnold APRN Active AZITHROMYCIN 250 MG ORAL TABS Take 2 tabs po today then 1 ta b po daily AZITHROMYCIN 40266363945 No Longer Active Silvia gavin APRN Active AUGMENTIN 875-125 MG TAB 1 po BID x 10 days AMOXICILLIN- POT CLAVULANATE 68866468868 No Longer Active Adriana Bender LPN Active CHEWABLE CALCIUM 500-200-40 MG-UNT-MCG ORAL CHEW 1 chew tab bid 201 11/03/03 CALCIUM-VITAMIN D-VITAMIN K 11365200074 Active Silvia Arnold APRN Active EQ COMPLETE MULTIVIT ADULT 50+ ORAL TABS 1 tab po bid MULTIPLE VITAMINS-MINERALS 17045851419 Active Silvia Arnold APRN Act jairo HYDROCODONE-ACETAMINOPHEN 7.5-325 MG TABS TAKE ONE TAB EVERY 6 HOURS BY MOUTH NEEDED FOR PAIN HYDROCODONE-ACETAMINOPHEN 64482543553 Acti ve Lizy العلي Active LORTAB 7.5-500 MG TABS take one po Q6 hours HYDROCODONE-ACETAMINOPHEN No Longer Active Nirmal Robbins RN Active [facility] MELATONIN 5-10 MG CR-TABS Take one by mouth daily at bedtime MELATONIN-PYRIDOXINE 69532396236 No Longer Active Bertrand Patel DO Active VITAMIN E 200 UNIT CAPS 1 cap po qd VITAMIN E 316 09586545 No Longer Active Bertrand Patel DO Active B-12 1000 MCG CAPS 1 tab daily CYANOCOBALAMIN 31 474340635 No Longer Active Bertrand Patel DO Active METFORMIN HCL 500 MG TABS 1 bid METFORMIN HCL 88168354820 No Longer Active Bertrand Patel DO Active FUROSEMIDE 20 MG TABS 1 pill by mouth daily if needed for edema FUROSEMIDE 49796804565 No Longer Active Bertrand Patel DO Act jairo PRAVASTATIN SODIUM 20 MG TABS 1 tablet by mouth daily at bedtime PRAVASTATIN SODIUM 91420681686 No Longer Active Bertrand Patel DO Active AUGMENTIN 875-125 MG TABS 1 pill by mouth twice daily AMOXICILLIN-POT CLAVULANATE 05484639782 No Longer Active Yoli Mercado MD PhD Active LEVAQUIN 500 MG TABS 1 pill by mouth daily LEVO FLOXACIN 55831664293 No Longer Active Yoli Mercado MD PhD Active AMLODIPINE BESYLATE 5 MG TABS 1 tablet by mouth daily for bl ood pressure AMLODIPINE BESYLATE 40016083540 Active Keysha Jones MA Active MICARDIS 80 MG TABS 1 tablet daily for blood pressure TELMISARTAN 17819780968 Active Keysha Jones MA Active MICARDIS HCT 80-12.5 MG TABS 1 qd TELMISARTA N-HCTZ 35036707315 No Longer Active Bertrand Patel DO Active CINNAMON ALPHA LIPOIC AC CMPLX CAPS by mouth twice a d ay in AM by mouth twice a day in PM ALPHA LIPOIC [id number] CAPS 745378 43504 No Longer Active Bertrand Patel DO Active AZITHROMYCIN 500 MG SOLR 1 po q day AZITHROMYCI N 18680482777 No Longer Active Bertrand Patel DO Active CYMBALTA 30 MG CPEP 1 cap by mouth daily DULOXE CATHI HCL 17659062644 No Longer Active Bertrand Patel DO Active CYMBALTA 60 MG CPEP 1 cap by mouth daily DULOXE CATHI HCL 10157507384 Active Keysha Jones MA Active WELLBUTRIN 75 MG TABS 2 times daily BUPROPION H CL 98067970444 No Longer Active Bertrand Patel DO Active PROAIR HFA 108 (90 BASE) MCG/ACT AERS take one to two puffs po Q4-6 hour prn cough and shortness of breath ALBUTEROL SULFATE 4632445640 2 Active Silvia Arnold INDIVIDUAL PENSION ADVISER Active AZITHROMYCIN 250 MG TABS take 2 po today then take 1 po days 2-5 AZITHROMYCIN 47068903191 No Longer Active Adolfo OSORIO Active PERMETHRIN 5 % CREA apply neck to toes tonight a nd then rinse off in morning. repeat at 7 days PERMETHRIN 10491431160 No Longer Active Adolfo OSORIO Active AMOXICILLIN 500 MG CAPS 2 po BID x 10 days AMOX ICILLIN 87766705213 No Longer Active Yoli Mercado MD PhD Active ALPRAZOLAM 0.5 MG TAB 1 tab by mouth tid ALPRAZOL AM 53039313022 Active Nitza Mullins RPT,RMA Active INSUPEN ULTRAFIN 31G X 6 MM MISC USE DIRECTED 03/04 INSULIN PEN NEEDLE 36732475621 No Longer Active Bertrand Patel DO Active TRANSDERM-SCOP 1.5 MG PT72 1 patch applied behind ear q 3 day 20 04/13/28 SCOPOLAMINE BASE 85600290324 No Longer Active Bertrand Patel DO Active MACRODANTIN 100 MG CAPS one p.o. b.i.d. x2 weeks 03/04 NITROFURANTOIN MACROCRYSTAL 49709716631 No Longer Active Bertrand Patel DO Active MACRODANTIN 100 MG CAPS one p.o. b.i.d. x2 weeks 03/04 MACRODANTIN 100 MG CAPS 8522989 NITROFURANTOIN MACROCRYSTAL Inactive TRANSDERM-SCOP 1.5 MG PT72 [...] at 7 days PERMETHRIN 5 % CREA 809647 PERMETHRIN Inactive WELLBUTRIN 75 MG TABS 2 times daily WELLBUTRIN 75 MG TABS BUPROPION HCL Inactive CYMBALTA 30 MG CPEP 1 cap by mouth daily CYMBALTA 30 MG CPEP 447419 DULOXETINE HCL Inactive AZITHROMYCIN 500 MG SOLR 1 po q day ALTA THROMYCIN 500 MG SOLR 13431490931 AZITHROMYCIN Inactive CINNAMON ALPHA LIPOIC AC CMPLX CAPS by mouth twice a d ay in AM by mouth twice a day in PM CINNAMON ALPHA LIPOIC AC CMPLX CAPS ALPHA LIPOIC [id number] CAPS Inactive MICARDIS HCT 80-12.5 MG TABS 1 qd MICARDI S HCT 80-12.5 MG TABS 059413 TELMISARTAN-HCTZ Inactive PRAVASTATIN SODIUM 20 MG TABS 1 tablet by mouth daily at bedtime PRAVASTATIN SODIUM 20 MG TABS 905303 PRAVASTATIN SODIUM Inactive FUROSEMIDE 20 MG TABS 1 pill by mouth daily if needed for edema FUROSEMIDE 20 MG TABS 407439 FUROSEMIDE Inactive METFORMIN HCL 500 MG TABS 1 bid METFORMIN HCL 500 MG TABS 300775 METFORMIN HCL Inactive B-12 1000 MCG CAPS 1 tab daily B-12 1000 MCG CAP S CYANOCOBALAMIN Inactive VITAMIN E 200 UNIT CAPS 1 cap po qd VITAMIN E 2 00 UNIT CAPS 9844907 VITAMIN E Inactive [facility] MELATONIN 5-10 MG CR-TABS Take one by mouth daily at bedtime [facility] MELATONIN 5-10 MG CR-TABS MELATONIN-PYRIDOXI NE Inactive LORTAB 7.5-500 MG TABS take one po Q6 hours LORTAB 7.5-500 MG TABS HYDROCODONE-ACETAMINOPHEN Inactive AZITHROMYCIN 250 MG ORAL TABS Take 2 tabs po today then 1 ta b po daily AZITHROMYCIN 250 MG ORAL TABS 9580066 AZITHROMYCI N Inactive SYMBICORT 160-4.5 MCG/ACT AERO 2 puffs BID SYMBICORT 160- 4.5 MCG/ACT AERO BUDESONIDE-FORMOTEROL FUMARATE Inactive ALBUTEROL SULFATE 0.083 % NEBU SOLN one vial per nebul izer every 4-6 hours as needed ALBUTEROL SULFATE 0.083 % NEBU SOLN 03265 8 ALBUTEROL SULFATE Inactive NEBULIZER MISC use as directed NEBULIZER MISC NEBULIZERS Inactive TESSALON PERLES 100 MG CAP 1 tablet by mouth 3 times daily 07/07 TESSALON PERLES 100 MG CAP 089432 BENZONATATE Inact jairo CYCLOBENZAPRINE HCL 10 MG TABS Take 1 tab TID PRN for muscle pain CYCLOBENZAPRINE HCL 10 MG TABS 056896 CYCLOBENZAPRINE HCL Inactive AUGMENTIN 875-125 MG TAB 1 po BID x 10 days AUGMENTIN 875- 125 MG TAB 364754 AMOXICILLIN-POT CLAVULANATE Inactive AMOXICILLIN 500 MG CAPS 2 po BID x 10 days AMOXICILLIN 500 MG CAPS 500667 AMOXICILLIN Inactive AZITHROMYCIN 250 MG TABS take 2 po today then take 1 po days 2-5 AZITHROMYCIN 250 MG TABS 9212105 AZITHROMYCIN Inactiv e LEVAQUIN 500 MG TABS 1 pill by mouth daily LEVAQUIN 500 MG TABS 937179 LEVOFLOXACIN Inactive AUGMENTIN 875-125 MG TABS 1 pill by mouth twice daily AUGMENTIN 875-125 MG TABS 717959 AMOXICILLIN-POT CLAVULANATE Inacti ve AUGMENTIN 875-125 MG TAB 1 po BID x 10 days AUGMENTIN 875- 125 MG TAB 531842 AMOXICILLIN-POT CLAVULANATE Inactive PREDNISONE 20 MG TAB take 3 tabs daily for 3 days , 2 tabs daily for 3 days, 1 tab daily for 3 days, 1/2 tab daily for 3 days PREDNISONE 20 MG TAB 171327 PREDNISONE Inactive CIPRO 500 MG TAB 1 tablet by mouth twice daily CIPRO 500 MG TAB 736213 CIPROFLOXACIN HCL Inactive Vital Signs Date Name [...] 5.8 % 4.3-6.0 cholesterol, serum 200 mg/dL 989-075 2109/07/22 triglyceride, serum, fasting 56 mg/dL 30-200 HDL cholesterol, serum 80 mg/dL 32-96 LDL cholesterol, serum 109 mg/dL 0-130 albumin/creatinine ratio, urine < 30 mg/g mg/g{creat} 0-2 9 TSH 1.16 m[iU]/mL 0.36-3.74 sodium, serum 142 mmol/L 521-331 9622/07/22 carbon dioxide, venous blood 33.1 mmol/L 21.0-32 [...] Negative;Positive Encounters Code Encounter Date Provider Facility CPT-09469 Level 3 Est. Patient 08:50:57 SKIP HOIST ENGINEER Silvia And dmitriy [facility] CPT-86724 Level 3 Est. Patient 10:04:13 CDT Bertrnad marquez [facility] CPT-58241 Level 4 Est. Patient 16:02:10 SKIP HOIST ENGINEER Silvia And dmitriy [facility] CPT-94113 Level 3 Est. Patient 13:04:54 SKIP HOIST ENGINEER Dangelo [facility] CPT-04013 Level 3 Est. Patient 12:56:37 CDT Bertrand marquez [facility] CPT-49543 Level 3 Est. Patient 19:12:03 CDT Yoli tolbert MD PhD [facility] CPT-01020 Level 3 Est. Patient 14:36:01 CDT Yoli tolbert MD PhD [facility] CPT-21211 Level 2 Est. Patient 08:00:22 CDT Jcarlos dc MD [facility] CPT-29785 Level 3 Est. Patient 19:06:55 CDT Bertrand marquez [facility] CPT-74783 Level 3 Est. Patient 10:08:23 SKIP HOIST ENGINEER Bertrand marquez [facility] CPT-86882 Level 3 Est. Patient 16:37:54 SKIP HOIST ENGINEER Bertrand marquez [facility] CPT-75460 Level 3 Est. Patient 11:31:59 SKIP HOIST ENGINEER Bertrand marquez [facility] CPT-46376 Level 3 Est. Patient 10:20:08 CDT Adolfo villasenor [facility] CPT-29742 Level 3 Est. Patient 13:45:20 CDT Sanket buckley [facility] CPT-68892 Level 3 Est. Patient 12:51:06 CDT Adolfo villasenor [facility] CPT-72450 Level 3 Est. Patient 11:22:51 SKIP HOIST ENGINEER Yoli tolbert MD [facility] CPT-28033 Level 3 Est. Patient 13:33:19 CDT Bertrand marquez [facility] Procedures Code Procedure Name Date Entry Date Standard Desc ription CPT-35912 Wound Culture - LAB USE ONLY 15:45:25 CDT 2 CPT-46797 Venipuncture Draw Fee 10:23:01 CDT CPT-J0696 Rocephin 1000 mg (Ceftriaxone) 16:20:30 SKIP HOIST ENGINEER CPT-11063 Abx/Therapy Injection 16:20:29 SKIP HOIST ENGINEER CPT-J0696 Rocephin 1gm Inj Solr 15:51:59 SKIP HOIST ENGINEER CPT-35882 Chest 2V Frontal and Lat 15:20:28 SKIP HOIST ENGINEER 07/22 CPT-88706 Breathing Tx 14:51:55 SKIP HOIST ENGINEER CPT-09119 Breathing Tx 09:57:16 SKIP HOIST ENGINEER CPT-92497 Knee comp 4/> V 11:58:06 SKIP HOIST ENGINEER
--- OUTSIDE RECORDS SUMMARY | 2019-11-13 10:36 | XMS REPORT | Clinical Summary ---
Author Author Admin, Enrique Adamson Organization [employer] Address Unknown Phone Unavailable Allergies, Adverse Reactions, [...] 09/09/28 EDEMA LEG ICD-782.3 Inactive Adele Feldman RADIOLOGIST 201 01/01/02 SHORTNESS OF BREATH ICD-786.05 Inactive Yoli Mercado MD PhD RIB PAIN, RIGHT SIDED ICD-786.50 Inactive Yoli Mercado MD PhD KNEE PAIN, RIGHT ICD-719.46 Inactive Adele Esqueda ghn RADIOLOGIST Knee pain, left ICD-719.46 Inactive Adele Holden hn RADIOLOGIST Pharyngitis-Acute ICD-462 Inactive Bertrand Redmond DO Polyuria ICD-788.42 Inactive Yoli Mercado MD P hD Cellulitis, leg, right ICD-682.6 Inactive Yuki Deluna MD Foreign body, ear ICD-931 Inactive Yoli salazar MD PhD Fatigue ICD-780.79 Inactive Ike Deluna MD 201 12/01/06 Headache ICD-784.0 Inactive Adele Feldman RADIOLOGIST 2017 Cough ICD-786.2 Inactive Adele Feldman RADIOLOGIST 06/04 SINUSITIS, ACUTE ICD-461.9 Inactive Ike lange MD Fatigue ICD-780.79 Inactive Adele Feldman RADIOLOGIST 2017 Bronchitis acute with bronchospasm ICD-466.0 I nactive Adele Feldman RADIOLOGIST Animal bite ICD-919.8 Inactive Adele Feldman LP N Mycoplasma infection ICD-041.81 Inactive Anit a Feldman RADIOLOGIST Amenorrhea, secondary ICD-626.0 Inactive Ani quinton Downsn RADIOLOGIST Medication List Medication Instructions Start Date Stop Date Generic Name NDC Status Provider Patient Instruction ADDERALL 10 MG ORAL TABLET 1 tab twice daily 2 AMPHETAMINE-DEXTROAMPHETAMINE 37929139025 No Longer Active Nitza Phi llips Scribe Active ZITHROMAX Z-MARTIN 250 MG ORAL TABLET 2 today and then 1 daily for 4 days AZITHROMYCIN 75258529708 No Longer Active Nitza Osman lips Scribe Active BENZONATATE 200 MG ORAL CAPSULE 1 three times a day as neede d for cough BENZONATATE 47457028117 No Longer Active Nitza Osman lips Scribe Active VITAMIN D3 77258 UNIT ORAL CAPSULE 1 pill Week x 4 mo nths for vitamin D deficiency/osteoporosis CHOLECALCIFEROL 07929171864 N o Longer Active Layla Mcmullen Active BACTROBAN 2 % EXTERNAL CREAM Apply to affected area BID for up to 10 days MUPIROCIN CALCIUM 70248035892 No Longer Active Ike Deluna MD Active CIPRO 500 MG ORAL TABLET 1 tablet by mouth twice daily CIPROFLOXACIN HCL 98144170283 No Longer Active Adriana Bender LPN Active AUGMENTIN 875-125 MG ORAL TABLET 1 po BID x 10 days 18/04/06 AMOXICILLIN-POT CLAVULANATE 84108589725 No Longer Active Adriana Bender LPN Active MODAFINIL 200 MG ORAL TABLET Take 1/2 tab po in the am and 1 /2 tab po at noon MODAFINIL 10527248915 Active Bertrand Patel DO Ac tive CYCLOBENZAPRINE HCL 10 MG ORAL TABLET Take 1 tab TID PRN for mus triston pain CYCLOBENZAPRINE HCL 51139151106 No Longer Active Bertrand Patel DO Active TESSALON PERLES 100 MG ORAL CAPSULE 1 tablet by mouth 3 times da juan pablo BENZONATATE 36797777270 No Longer Active Bertrand Patel DO Ac tive NEBULIZER use as directed NEBULIZERS 75822293313 No Longer Active Bertrand Patel DO Active ALBUTEROL SULFATE (2.5 MG/3ML) 0.083% INHALATION NEBUL IZATION SOLUTION one vial per nebulizer every 4-6 hours as needed ALBUTERO L SULFATE 82919478779 No Longer Active Bertrand Patel DO Active SYMBICORT 160-4.5 MCG/ACT INHALATION AEROSOL 2 puffs BID 9 BUDESONIDE-FORMOTEROL FUMARATE 96858528035 No Longer Active Bertrand Patel DO Active PREDNISONE 20 MG ORAL TABLET take 3 tabs daily for 3 d ays, 2 tabs daily for 3 days, 1 tab daily for 3 days, 1/2 tab daily for 3 days 08/02 PREDNISONE 56435147543 No Longer Active Silvia Arnold DYEING MACHINE FEEDER Acti ve AZITHROMYCIN 250 MG ORAL TABLET Take 2 tabs po today then 1 tab po daily AZITHROMYCIN 95724038258 No Longer Active Silvia gavin DYEING MACHINE FEEDER Active AUGMENTIN 875-125 MG ORAL TABLET 1 po BID x 10 days 20 19/07/13 AMOXICILLIN-POT CLAVULANATE 90633391359 No Longer Active Adriana Bender LPN Active CHEWABLE CALCIUM 500-200-40 MG-UNT-MCG ORAL TABLET CHEWABLE 1 chew tab bid CALCIUM-VITAMIN D-VITAMIN K 60812265696 Active Silvia garlandgypsy DYEING MACHINE FEEDER Active EQ COMPLETE MULTIVIT ADULT 50+ ORAL TABLET 1 tab po bid MULTIPLE VITAMINS-MINERALS 41558484444 Active Silvia Arnold DYEING MACHINE FEEDER Act jairo HYDROCODONE-ACETAMINOPHEN 7.5-325 MG ORAL TABLET TAKE ONE TAB EVERY 6 HOURS BY MOUTH NEEDED FOR PAIN HYDROCODONE-ACETAMINOPHEN 004 93465905 Active Adele Feldman RADIOLOGIST Active LORTAB 7.5-500 MG ORAL TABLET take one po Q6 hours 201 09/12/01 HYDROCODONE-ACETAMINOPHEN 90356088500 No Longer Active Nirmal Robbins RN Active [facility] MELATONIN 5-10 MG ORAL TABLET EXTENDED RELEASE Jair e one by mouth daily at bedtime MELATONIN-PYRIDOXINE 69226507965 No Longer Acti ve Bertrand Patel DO Active VITAMIN E 200 UNIT ORAL CAPSULE 1 cap po qd VITAM IN E 56371987222 No Longer Active Bertrand Patel DO Active B-12 1000 MCG ORAL CAPSULE 1 tab daily CYANOCOB ALAMIN 56949369672 No Longer Active Bertrand Patel DO Active METFORMIN HCL 500 MG ORAL TABLET 1 bid METFOR MIN HCL 31049196894 No Longer Active Bertrand Patel DO Active FUROSEMIDE 20 MG ORAL TABLET 1 pill by mouth daily if needed for edema FUROSEMIDE 48037853982 No Longer Active Bertrand Patel DO Active PRAVASTATIN SODIUM 20 MG ORAL TABLET 1 tablet by mouth daily at bedtime PRAVASTATIN SODIUM 83440069812 No Longer Active Bertrand Patel DO Active AUGMENTIN 875-125 MG ORAL TABLET 1 pill by mouth twice daily 201 09/10/00 AMOXICILLIN-POT CLAVULANATE 58475748646 No Longer Active Yoli Mercado MD PhD Active LEVAQUIN 500 MG ORAL TABLET 1 pill by mouth daily 2013 LEVOFLOXACIN 15475078194 No Longer Active Yoli Mercado MD PhD Acti ve AMLODIPINE BESYLATE 5 MG ORAL TABLET 1 tablet by mouth daily for blood pressure AMLODIPINE BESYLATE 63539042389 Active Bertrand Patel DO Active MICARDIS 80 MG ORAL TABLET 1 tablet daily for blood pressure 07/30 TELMISARTAN 25579624952 Active Bertrand Patel DO Active MICARDIS HCT 80-12.5 MG ORAL TABLET 1 qd TELMISARTAN-HCTZ 30143414993 No Longer Active Bertrand Patel DO Active CINNAMON ALPHA LIPOIC AC CMPLX CAPSULE by mouth twice a day in AM by mouth twice a day in PM ALPHA LIPOIC SYMQ-IT-STBKYEUT CA PS 71306846857 No Longer Active Bertrand Patel DO Active AZITHROMYCIN 500 MG INTRAVENOUS SOLUTION RECONSTITUTED 1 po q da y AZITHROMYCIN 10902883409 No Longer Active Bertrand Patel DO A ctive CYMBALTA 30 MG ORAL CAPSULE DELAYED RELEASE PARTICLES 1 cap by mouth daily DULOXETINE HCL 30060010217 No Longer Active Bertrand marquez DO Active CYMBALTA 60 MG ORAL CAPSULE DELAYED RELEASE PARTICLES 1 cap by mouth daily DULOXETINE HCL 64483467296 Active Bertrand Patel DO Active WELLBUTRIN 75 MG ORAL TABLET 2 times daily BUPR OPION HCL 65302098369 No Longer Active Bertrand Patel DO Active PROAIR HFA 108 (90 Base) MCG/ACT INHALATION AEROSOL SO LUTION take one to two puffs po Q4-6 hour prn cough and shortness of breath ALBUTEROL SULFATE 19095008942 Active Silvia Arnold APRN Active AZITHROMYCIN 250 MG ORAL TABLET take 2 po today then take 1 po days 2-5 AZITHROMYCIN 48408993420 No Longer Active Adolfo OSORIO Active PERMETHRIN 5 % EXTERNAL CREAM apply neck to toes tonig ht and then rinse off in morning. repeat at 7 days PERMETHRIN 63278753423 No Longer Active Adolfo OSORIO Active AMOXICILLIN 500 MG ORAL CAPSULE 2 po BID x 10 days 201 07/15/00 AMOXICILLIN 54404070249 No Longer Active Yoli Mercado MD PhD Acti ve ALPRAZOLAM 0.5 MG ORAL TABLET 1 tab by mouth tid ALPRAZOLAM 99591028451 Active Nitza Mullins LPN Active INSUPEN ULTRAFIN 31G X 6 MM USE DIRECTED INSULIN PEN NEEDLE 83851405258 No Longer Active Bertrand Patel DO Active TRANSDERM-SCOP (1.5 MG) 1 MG/3DAYS TRANSDERMAL PATCH 7 2 HOUR 1 patch applied behind ear q 3 day SCOPOLAMINE BASE 24459779301 No Lo nger Active Bertrand Patel DO Active MACRODANTIN 100 MG ORAL CAPSULE one p.o. b.i.d. x2 weeks NITROFURANTOIN MACROCRYSTAL 59146911654 No Longer Active Bertrand Patel DO Active MACRODANTIN 100 MG ORAL CAPSULE one p.o. b.i.d. x2 weeks MACRODANTIN 100 MG ORAL CAPSULE 0626322 NITROFURANTOIN MACROCRYSTAL Inactive TRANSDERM-SCOP (1.5 MG) 1 [...] days PERMETHRIN 5 % EXTER NAL CREAM 761495 PERMETHRIN Inactive WELLBUTRIN 75 MG ORAL TABLET 2 times daily WELLBUTRIN 75 MG ORAL TABLET 235577 BUPROPION HCL Inactive CYMBALTA 30 MG ORAL CAPSULE DELAYED RELEASE PARTICLES 1 cap by mouth daily CYMBALTA 30 MG ORAL CAPSULE DELAYED RELE ASE PARTICLES 457487 DULOXETINE HCL Inactive AZITHROMYCIN 500 MG INTRAVENOUS SOLUTION RECONSTITUTED 1 po q da y AZITHROMYCIN 500 MG INTRAVENOUS SOLUTION RECONSTITUTED 51789 088877 AZITHROMYCIN Inactive CINNAMON ALPHA LIPOIC AC CMPLX CAPSULE by mouth twice a day in AM by mouth twice a day in PM CINNAMON ALPHA LIPOIC AC CMPLX CAPSULE ALPHA LIPOIC [id number] CAPS Inactive MICARDIS HCT 80-12.5 MG ORAL TABLET 1 qd 07/30 MICARDIS HCT 80-12.5 MG ORAL TABLET 832029 TELMISARTAN-HCTZ Inactive PRAVASTATIN SODIUM 20 MG ORAL TABLET 1 tablet by mouth daily at bedtime PRAVASTATIN SODIUM 20 MG ORAL TABLET 189566 PRAVASTATIN SODIUM Inactive FUROSEMIDE 20 MG ORAL TABLET 1 pill by mouth daily if needed for edema FUROSEMIDE 20 MG ORAL TABLET 092612 FUROSEMIDE Inactive METFORMIN HCL 500 MG ORAL TABLET 1 bid METFORMIN HCL 500 MG ORAL TABLET 423026 METFORMIN HCL Inactive B-12 1000 MCG ORAL CAPSULE 1 tab daily B -12 1000 MCG ORAL CAPSULE CYANOCOBALAMIN Inactive VITAMIN E 200 UNIT ORAL CAPSULE 1 cap po qd 1 VITAMIN E 200 UNIT ORAL CAPSULE 5851628 VITAMIN E Inactive [facility] MELATONIN 5-10 MG ORAL TABLET EXTENDED RELEASE Jair e one by mouth daily at bedtime [facility] MELATONIN 5-10 M G ORAL TABLET EXTENDED RELEASE MELATONIN-PYRIDOXINE Inactive LORTAB 7.5-500 MG ORAL TABLET take one po Q6 hours 201 09/12/01 LORTAB 7.5-500 MG ORAL TABLET 871860 HYDROCODONE-ACETAMINOPHEN Inactive AZITHROMYCIN 250 MG ORAL TABLET Take 2 tabs po today then 1 tab po daily AZITHROMYCIN 250 MG ORAL TABLET 821362 AZITHROMY BERNARDO Inactive SYMBICORT 160-4.5 MCG/ACT INHALATION AEROSOL 2 puffs BID 9 SYMBICORT 160-4.5 MCG/ACT INHALATION AEROSOL BUDESONIDE-FORM OTEROL FUMARATE Inactive ALBUTEROL SULFATE (2.5 MG/3ML) 0.083% INHALATION NEBUL IZATION SOLUTION one vial per nebulizer every 4-6 hours as needed ALBUTEROL SULFATE (2.5 MG/3ML) 0.083% INHALATION NEBULIZATION SOLUTION 757586 ALBUTER OL SULFATE Inactive NEBULIZER use as directed NEBULIZER NEBULI ZERS Inactive TESSALON PERLES 100 MG ORAL CAPSULE 1 tablet by mouth 3 times da juan pablo TESSALON PERLES 100 MG ORAL CAPSULE 276764 BENZONATATE Inactive CYCLOBENZAPRINE HCL 10 MG ORAL TABLET Take 1 tab TID PRN for mus triston pain CYCLOBENZAPRINE HCL 10 MG ORAL TABLET 728438 CYCLOBENZA ANUJA HCL Inactive AUGMENTIN 875-125 MG ORAL TABLET 1 po BID x 10 days 20 18/04/06 AUGMENTIN 875-125 MG ORAL TABLET 884616 AMOXICILLIN-POT CLAVULANATE Inactive BACTROBAN 2 % EXTERNAL CREAM Apply to affected area BID for up to 10 days BACTROBAN 2 % EXTERNAL CREAM 547754 MUPIROCIN CA LCIUM Inactive VITAMIN D3 50673 UNIT ORAL CAPSULE 1 pill Week x 4 mo nths for vitamin D deficiency/osteoporosis VITAMIN D3 33491 UNIT ORAL CAPSULE CHOLECALCIFEROL Inactive BENZONATATE 200 MG ORAL CAPSULE 1 three times a day as neede d for cough BENZONATATE 200 MG ORAL CAPSULE 746534 BENZONATA TE Inactive ZITHROMAX Z-MARTIN 250 MG ORAL TABLET 2 today and then 1 daily for 4 days ZITHROMAX Z-MARTIN 250 MG ORAL TABLET 037850 AZITHR OMYCIN Inactive ADDERALL 10 MG ORAL TABLET 1 tab twice daily 2 ADDERALL 10 MG ORAL TABLET 200570 AMPHETAMINE-DEXTROAMPHETAMINE Inactive AMOXICILLIN 500 MG ORAL CAPSULE 2 po BID x 10 days 201 07/15/00 AMOXICILLIN 500 MG ORAL CAPSULE 726421 AMOXICILLIN Inactive AZITHROMYCIN 250 MG ORAL TABLET take 2 po today then take 1 po days 2-5 AZITHROMYCIN 250 MG ORAL TABLET 954549 AZITHROMY BERNARDO Inactive LEVAQUIN 500 MG ORAL TABLET 1 pill by mouth daily 2013 LEVAQUIN 500 MG ORAL TABLET 780681 LEVOFLOXACIN Inactive AUGMENTIN 875-125 MG ORAL TABLET 1 pill by mouth twice daily 201 09/10/00 AUGMENTIN 875-125 MG ORAL TABLET 418786 AMOXICILLIN-POT CLAVULANATE Inactive AUGMENTIN 875-125 MG ORAL TABLET 1 po BID x 10 days 19/07/13 AUGMENTIN 875-125 MG ORAL TABLET 681348 AMOXICILLIN-POT CLAVULANATE Inactive PREDNISONE 20 MG ORAL TABLET take 3 tabs daily for 3 d ays, 2 tabs daily for 3 days, 1 tab daily for 3 days, 1/2 tab daily for 3 days 08/02 PREDNISONE 20 MG ORAL TABLET 148789 PREDNISONE Inactive CIPRO 500 MG ORAL TABLET 1 tablet by mouth twice daily CIPRO 500 MG ORAL TABLET 140251 CIPROFLOXACIN HCL Inactive Vital Signs Date Name [...] % 4.3-6.0 Lab Report: MICROALB/CREAT W/RATIO - Dleores balaji albumin/creatinine ratio, urine <30 mg/g Normal mg/g m g/g{creat} 0-29 Lab Report: MICROALB/CREAT W/RATIO - Lab microalbumin, urine 10 mg/L 0-19 Encounters Code Encounter Date Provider Facility CPT-54417 Level 4 Est. Patient 15:33:35 [employer] Bertrand marquez [facility] CPT-08621 Level 4 Est. Patient 12:31:54 CDT Bertrand marquez [facility] CPT-71247 Level 3 Est. Patient 11:27:00 [employer] Ike Deluna MD [facility] CPT-73649 Level 3 Est. Patient 08:50:57 [employer] Dangelo DYEING MACHINE FEEDER [facility] CPT-45528 Level 3 Est. Patient 10:04:13 CDT Bertrand marquez [facility] CPT-05679 Level 4 Est. Patient 16:02:10 [employer] Dangelo DYEING MACHINE FEEDER [facility] CPT-50763 Level 3 Est. Patient 13:04:54 [employer] Dangelo DYEING MACHINE FEEDER [facility] CPT-58198 Level 3 Est. Patient 12:56:37 CDT Bertrand marquez [facility] CPT-23364 Level 3 Est. Patient 19:12:03 CDT Yoli tolbert MD [facility] CPT-50823 Level 3 Est. Patient 14:36:01 CDT Yoli tolbert MD [facility] CPT-70470 Level 2 Est. Patient 08:00:22 CDT Jcarlos dc MD [facility] CPT-01829 Level 3 Est. Patient 19:06:55 CDT Bertrand marquez [facility] CPT-20997 Level 3 Est. Patient 10:08:23 [employer] Bertrand marquez [facility] CPT-77688 Level 3 Est. Patient 16:37:54 [employer] Bertrand marquez [facility] CPT-39293 Level 3 Est. Patient 11:31:59 [employer] Bertrand marquez [facility] CPT-28237 Level 3 Est. Patient 10:20:08 CDT Adolfo villasenor [facility] CPT-24477 Level 3 Est. Patient 13:45:20 CDT Sanket buckley [facility] CPT-39470 Level 3 Est. Patient 12:51:06 CDT Adolfo villasenor [facility] CPT-85442 Level 3 Est. Patient 11:22:51 [employer] Yoli tolbert MD [facility] CPT-27103 Level 3 Est. Patient 13:33:19 CDT Bertrand marquez [facility] Procedures Code Procedure Name Date Entry Date Standard Desc ription CPT-81045 Wound Culture - LAB USE ONLY 15:45:25 CDT 2 CPT-57949 Venipuncture Draw Fee 10:23:01 CDT CPT-J0696 Rocephin 1000 mg (Ceftriaxone) 16:20:30 [employer]ER CPT-61203 Abx/Therapy Injection 16:20:29 [employer] CPT-J0696 Rocephin 1gm Inj Solr 15:51:59 [employer]ER CPT-54914 Chest 2V Frontal and Lat 15:20:28 [employer]ER 07/22 CPT-58019 Breathing Tx 14:51:55 [employer] CPT-23571 Breathing Tx 09:57:16 [employer] CPT-44962 Knee comp 4/> V 11:58:06 [employer]ER
--- OUTSIDE RECORDS SUMMARY | 2019-11-13 10:36 | XMS REPORT | Clinical Summary ---
Author Author Admin, Enrique Adamson Organization [facility] Address Unknown Phone Allergies, Adverse Reactions, Alerts Allergy Name Reaction [...] Mercado MD PhD Scabies FH DIABETES V18.0 Active Lilia Clemons RN Family history of diabetes mellitus SINUSITIS, FRONTAL, ACUTE 461.1 Active Yoli Mercado MD PhD Acute frontal sinusitis COUGH 786.2 Active Adolfo OSORIO Cough EDEMA LEG 782.3 Active Adolfo OSORIO Edema SHORTNESS OF BREATH 786.05 Active Adolfo OSORIO Shortness of breath RISK OF SLEEP APNEA V12.59 Active Adolfo OSORIO Other personal history of diseases of circulatory system RIB PAIN, RIGHT SIDED 786.50 Active Adolfo Alejandra Unspecified chest pain KNEE PAIN, RIGHT 719.46 [...] Bertrand Patel DO Acute pharyngitis Polyuria 788.42 Active Bertrand Patel DO Po lyuria HEALTH SCREENING ICD-V70.0 Inactive Yoli sabillon MD PhD SCABIES ICD-133.0 Inactive Yoli Mercado MD PhD 201 07/14/20 Pharyngitis-Acute ICD-462 Inactive Bertrand Redmond DO Medication List Medication Instructions Start Date Stop Date Generic Name NDC Status Provider Patient Instruction CYCLOBENZAPRINE HCL 10 MG TABS Take 1 tab TID PRN for muscle pain CYCLOBENZAPRINE HCL 81765745099 Active Brittni Ventura DIFFERENTIAL SPECIALIST Active AMLODIPINE BESYLATE 5 MG TABS 1 tablet by mouth daily for bl ood pressure AMLODIPINE BESYLATE 45391166040 Active Bertrand Patel DO Active MICARDIS 80 MG TABS 1 tablet daily for blood pressure TELMISARTAN 50727307844 Active Betrrand Patel DO Active MICARDIS HCT 80-12.5 MG TABS 1 qd TELMISARTA N-HCTZ 11832072337 No Longer Active Bertrand Patel DO Active FUROSEMIDE 20 MG TABS take one po PRN FUROSEMIDE 83922481570 Active Bertrand Patel DO Active CINNAMON ALPHA LIPOIC AC CMPLX CAPS by mouth twice a d ay in AM by mouth twice a day in PM ALPHA LIPOIC [id number] CAPS 804608 04927 No Longer Active Bertrand Patel DO Active AZITHROMYCIN 500 MG SOLR 1 po q day AZITHROMYCI N 27383622792 No Longer Active Bertrand Patel DO Active CYMBALTA 30 MG CPEP 1 cap by mouth daily DULOXE CATHI HCL 02478223158 No Longer Active Bertrand Patel DO Active CYMBALTA 60 MG CPEP 1 cap by mouth daily DULOXE CATHI HCL 49944926790 Active Bertrand Patel DO Active WELLBUTRIN 75 MG TABS 2 times daily BUPROPION H CL 59866413783 No Longer Active Bertrand Patel DO Active [facility] MELATONIN 5-10 MG CR-TABS Take one by mouth daily at bedtime 20 15/04/08 MELATONIN-PYRIDOXINE 08757884827 Active Bertrand Patel DO Activ e LORTAB 7.5-500 MG TABS take one po Q6 hours HYDROCODONE-ACETAMINOPHEN 61230951524 Active Bertrand Patel DO Active PROAIR HFA 108 (90 BASE) MCG/ACT AERS take one to two puffs po Q4-6 hour prn cough and shortness of breath ALBUTEROL SULFATE 2004030436 1 Active Adolfo OSORIO Active AZITHROMYCIN 250 MG TABS take 2 po today then take 1 po days 2-5 AZITHROMYCIN 40685571382 No Longer Active Adolfo OSORIO Active VITAMIN E 200 UNIT CAPS 1 cap po qd VITAMIN E 5102016854 5 Active Adolfo OSORIO Active PERMETHRIN 5 % CREA apply neck to toes tonight a nd then rinse off in morning. repeat at 7 days PERMETHRIN 08405244710 No Longer Active Adolfo OSORIO Active AMOXICILLIN 500 MG CAPS 2 po BID x 10 days AMOX ICILLIN 07992993119 No Longer Active Yoli Mercado MD PhD Active ALPRAZOLAM 0.5 MG TAB 1 tab by mouth tid ALPRAZOL AM 26639340298 Active Bertrand Patel DO Active PRAVASTATIN SODIUM 20 MG TABS 1 tablet by mouth daily at bedtime 20 05/12/02 PRAVASTATIN SODIUM 25663357473 Active Bertrand Patel DO Active B-12 1000 MCG CAPS 1 tab daily CYANOCOBALAMIN 6840003 2732 Active Bretrand Patel DO Active INSUPEN ULTRAFIN 31G X 6 MM MISC USE DIRECTED 03/04 INSULIN PEN NEEDLE 61066382182 No Longer Active Bertrand Jacklyn Patel DO Active TRANSDERM-SCOP 1.5 MG PT72 1 patch applied behind ear q 3 day 20 04/13/28 SCOPOLAMINE BASE 70835699255 No Longer Active Bertrand Jacklyn Patel DO Active MACRODANTIN 100 MG CAPS one p.o. b.i.d. x2 weeks 03/04 NITROFURANTOIN MACROCRYSTAL 37095076863 No Longer Active Bertrand Jacklyn Patel DO Active METFORMIN HCL 500 MG TABS 1 bid METFORMIN HCL 34867129 898 Active Bertrand Patel DO Active MACRODANTIN 100 MG CAPS one p.o. b.i.d. x2 weeks 03/04 MACRODANTIN 100 MG CAPS 379136 NITROFURANTOIN MACROCRYSTAL Inactive TRANSDERM-SCOP 1.5 MG PT72 [...] at 7 days PERMETHRIN 5 % CREA 338777 PERMETHRIN Inactive WELLBUTRIN 75 MG TABS 2 times daily WELLBUTRIN 75 MG TABS 355898 BUPROPION HCL Inactive CYMBALTA 30 MG CPEP 1 cap by mouth daily CYMBALTA 30 MG CPEP 822902 DULOXETINE HCL Inactive AZITHROMYCIN 500 MG SOLR 1 po q day ALTA THROMYCIN 500 MG SOLR 641091 AZITHROMYCIN Inactive CINNAMON ALPHA LIPOIC AC CMPLX CAPS by mouth twice a d ay in AM by mouth twice a day in PM CINNAMON ALPHA LIPOIC AC CMPLX CAPS ALPHA LIPOIC [id number] CAPS Inactive MICARDIS HCT 80-12.5 MG TABS [address] 80-12.5 MG TABS TELMISARTAN-HCTZ Inactive AMOXICILLIN 500 MG CAPS 2 po BID x 10 days AMOXICILLIN 500 MG CAPS 576164 AMOXICILLIN Inactive AZITHROMYCIN 250 MG TABS take 2 po today then take 1 po days 2-5 AZITHROMYCIN 250 MG TABS 4933234 AZITHROMYCIN Inactiv e Vital Signs Date Name Value Unit Range Description blood pressure, diastolic 92 mm[Hg] BP frederick blood pressure, systolic 146 mm[Hg] BP sys height E&M 65 [in_us] Bdy height pulse rate E&M 111 /min Heart rate temperature E&M 97.9 [degF] Body temp erature weight E&M 403 [lb_av] Weight Measure d blood pressure, diastolic 98 mm[Hg] BP frederick blood pressure, systolic 171 mm[Hg] BP sys height E&M 65 [in_us] Bdy height pulse rate E&M 96 /min Heart rate temperature E&M 98.7 [degF] Body temp erature weight E&M 402 [lb_av] Weight Measure d blood pressure, diastolic 96 mm[Hg] BP frederick blood pressure, systolic 151 mm[Hg] BP sys height E&M 65 [in_us] Bdy height pulse rate E&M 94 /min Heart rate temperature E&M 98.2 [degF] Body temp erature weight E&M 417.25 [lb_av] Weight Measure d blood pressure, diastolic 89 mm[Hg] BP frederick blood pressure, systolic 142 mm[Hg] BP sys height E&M 65 [in_us] Bdy height pulse rate E&M 101 /min Heart rate temperature E&M 99.0 [degF] Body temp erature weight E&M 422.50 [lb_av] Weight Measure d blood pressure, diastolic 84 mm[Hg] BP frederick blood pressure, systolic 148 mm[Hg] BP sys height E&M 65 [in_us] Bdy height pulse rate E&M 91 /min Heart rate temperature E&M 98.7 [degF] Body temp erature weight E&M 417 [lb_av] Weight Measure d blood pressure, diastolic 91 mm[Hg] BP frederick blood pressure, systolic 178 mm[Hg] BP sys height E&M 65 [in_us] Bdy height pulse rate E&M 88 /min Heart rate temperature E&M 98.3 [degF] Body temp erature weight E&M 409 [lb_av] Weight Measure d blood pressure, diastolic 88 mm[Hg] BP frederick blood pressure, systolic 145 mm[Hg] BP sys height E&M 65 [in_us] Bdy height pulse rate E&M 87 /min Heart rate temperature E&M 99.1 [degF] Body temp erature weight E&M 397.38 [lb_av] Weight Measure d blood pressure, diastolic 84 mm[Hg] BP frederick blood pressure, systolic 138 mm[Hg] BP sys height E&M 64 [in_us] Bdy height pulse rate E&M 85 /min Heart rate temperature E&M 98.5 [degF] Body temp erature weight E&M 403 [lb_av] Weight Measure d Diagnostic Results Date Name Value Unit Range Description Lab Report: Basic Metabolic Panel - Chem istry sodium, serum 144 mmol/L 576-495 5486/06/18 potassium, serum 4.4 mmol/L 3.5-5.2 chloride, serum 101 mmol/L 98-107 carbon dioxide, venous blood 31.0 mmol/L 21.0-32 .0 blood glucose 50 mg/dL 65-110 calcium, serum 8.7 mg/dL 8.5-10.1 urea nitrogen, blood 20 mg/dL 7-18 creatinine, serum 1.00 mg/dL 0.60-1.30 Lab Report: CBC, Comp. Metabolic Panel, Thyroid Stimulating Hormone (L), ... - Chemistry sodium, serum 142 mmol/L 114-070 9113/02/27 potassium, serum 4.7 mmol/L 3.5-5.2 chloride, serum 104 mmol/L 98-107 carbon dioxide, venous blood 36.4 mmol/L 21.0-32 .0 blood glucose 98 mg/dL 65-110 urea nitrogen, blood 18 mg/dL 7-18 creatinine, serum 0.80 mg/dL 0.60-1.30 alanine aminotransferase (SGPT), serum 32 U/L 12-78 aspartate aminotransferase (SGOT), serum 19 U/L 15-37 alkaline phosphatase, serum 82 U/L 50-136 calcium, serum 8.4 mg/dL 8.5-10.1 bilirubin, serum, total 0.30 mg/dL 0.00-1.00 TSH 2.68 m[iU]/mL 0.36-3.74 hemoglobin A1C, blood, as % of total hemoglobin 5.9 % 4.3-6.0 albumin/creatinine ratio, urine < 30 mg/g mg/g{creat} 0-2 9 cholesterol, serum 168 mg/dL 193-476 3463/02/27 triglyceride, serum, fasting 101 mg/dL 30-200 HDL cholesterol, serum 47 mg/dL 32-96 LDL cholesterol, serum 101 mg/dL 0-130 Lab Report: CBC, Comp. Metabolic Panel, Thyroid Stimulating Hormone (L), ... - Hematology leukocyte count, blood 10.2 10^3/MM^3 10*3/mm3 4.6-10.2 erythrocyte (RBC) count 4.52 10^6/MM^3 10*6/mm3 4.04-5.4 8 hemoglobin, blood 13.6 g/dL 12.0-16.0 hematocrit, blood 42.5 % 36.0-46.0 mean corpuscular volume, RBC 94 fL 80-97 mean corpuscular hemoglobin, RBC 30.0 pg 27. 0-31.2 mean corpuscular hemoglobin concentration, RBC 31.9 G/DL % 31.8-35.4 red blood cell distribution width 15.7 % 11 .6-14.8 platelet count 317 10^3/MM^3 10*3/mm3 142-424 Lab Report: CBC, Comp. Metabolic Panel, Thyroid Stimulating Hormone (L), ... - Lab microalbumin, urine 30 0-19 Lab Report: HGBA1C, Basic Metabolic Pane l, B-Type Natriuretic Peptide - Chemistry hemoglobin A1C, blood, as % of total hemoglobin 6.3 % 4.3-6.0 sodium, serum 143 mmol/L 164-644 1185/06/10 potassium, serum 5.0 mmol/L 3.5-5.2 chloride, serum 101 mmol/L 98-107 carbon dioxide, venous blood 36.6 mmol/L 21.0-32 .0 blood glucose 80 mg/dL 65-110 calcium, serum 8.6 mg/dL 8.5-10.1 urea nitrogen, blood 22 mg/dL 7-18 creatinine, serum 1.00 mg/dL 0.60-1.30 Lab Report: HGBA1C, HEPATIC PANEL, Lipid Panel, Basic Metabolic Panel - Chemistry hemoglobin A1C, blood, as % of total hemoglobin 6.6 % 4.3-6.0 alkaline phosphatase, serum 84 U/L 50-136 aspartate aminotransferase (SGOT), serum 12 U/L 15-37 alanine aminotransferase (SGPT), serum 22 U/L 12-78 bilirubin, serum, total 0.30 mg/dL 0.00-1.00 cholesterol, serum 140 mg/dL 661-047 0085/11/08 triglyceride, serum, fasting 76 mg/dL 30-200 HDL cholesterol, serum 60 mg/dL 32-96 LDL cholesterol, serum 65 mg/dL 0-130 sodium, serum 143 mmol/L 810-439 2623/11/08 potassium, serum 4.8 mmol/L 3.5-5.2 chloride, serum 103 mmol/L 98-107 carbon dioxide, venous blood 39.7 mmol/L 21.0-32 .0 blood glucose 75 mg/dL 65-110 calcium, serum 7.9 mg/dL 8.5-10.1 urea nitrogen, blood 13 mg/dL 7-18 creatinine, serum 0.70 mg/dL 0.60-1.30 Lab Report: UADIP W/MICRO, AUTO - Chemis try protein, total urine random Trace mg/dL Negative RBC, urine, dipstick Negative Negative Lab Report: UADIP W/MICRO, AUTO - Urinal ysis urobilinogen, urine, semiquantitative (dipstick) 0.2 Normal leukocyte esterase, urine, by dipstick Negative Negative nitrite, urine, semiquantitative Negative Neg ative glucose, urine, semiquantitative Negative Neg ative ketones, urine, by test strip Negative Negati ve bilirubin, urine Negative Negative urine color Yellow Colorless;Lightyellow;St raw;Yellow appearance, urine Clear Clear specific gravity, urine 1.025 1.000-1.030 pH, urine, semiquantitative 6.0 5.0-8.5 Encounters Code Encounter Date Provider Facility CPT-42559 Level 2 Est. Patient 08:00:22 CDT Jcarlos dc MD [facility] CPT-26573 Level 3 Est. Patient 19:06:55 CDT Bertrand marquez [facility] CPT-48895 Level 3 Est. Patient 10:08:23 ADMINISTRATIVE MANAGER Bertrand marquez [facility] CPT-68464 Level 3 Est. Patient 16:37:54 ADMINISTRATIVE MANAGER Bertrand marquez [facility] CPT-45866 Level 3 Est. Patient 11:31:59 ADMINISTRATIVE MANAGER Bertrand marquez [facility] CPT-22930 Level 3 Est. Patient 10:20:08 CDT Adolfo villasenor [facility] CPT-76899 Level 3 Est. Patient 13:45:20 CDT Sanket buckley [facility] CPT-16605 Level 3 Est. Patient 12:51:06 CDT Adolfo villasenor [facility] CPT-18869 Level 3 Est. Patient 11:22:51 ADMINISTRATIVE MANAGER Yoli tolbert MD PhD [facility]-67890 Level 3 Est. Patient 13:33:19 CDT Bertrand marquez [facility] Procedures Code Procedure Name Date Entry Date Standard Desc ription CPT-38661 Knee comp 4/> V 11:58:06 ADMINISTRATIVE MANAGER
--- OUTSIDE RECORDS SUMMARY | 2019-11-13 10:37 | XMS REPORT | Clinical Summary ---
Author Author Admin, Enrique Adamson Organization [facility] Address Unknown Phone Allergies, Adverse Reactions, Alerts [...] TID PRN for muscle pain CYCLOBENZAPRINE HCL 63008574941 Active Brittni Ventura AGRONOMY TECHNICIAN Active AMLODIPINE BESYLATE 5 MG TABS 1 tablet by mouth daily for bl ood pressure AMLODIPINE BESYLATE 64979651472 Active Bertrand Patel DO Active MICARDIS 80 MG TABS 1 tablet daily for blood pressure TELMISARTAN 26137806409 Active Bertrand Patel DO Active MICARDIS HCT 80-12.5 MG TABS 1 qd TELMISARTA N-HCTZ 36212656780 No Longer Active Bertrand Patel DO Active FUROSEMIDE 20 MG TABS take one po PRN FUROSEMIDE 98928577927 Active Bertrand Patel DO Active CINNAMON ALPHA LIPOIC AC CMPLX CAPS by mouth twice a d ay in AM by mouth twice a day in PM ALPHA LIPOIC [id number] CAPS 284570 81726 No Longer Active Bertrand Patel DO Active AZITHROMYCIN 500 MG SOLR 1 po q day AZITHROMYCI N 35668470361 No Longer Active Bertrand Patel DO Active CYMBALTA 30 MG CPEP 1 cap by mouth daily DULOXE CATHI HCL 80553773033 No Longer Active Bertrand Patel DO Active CYMBALTA 60 MG CPEP 1 cap by mouth daily DULOXE CATHI HCL 46576609951 Active Bertrand Patel DO Active WELLBUTRIN 75 MG TABS 2 times daily BUPROPION H CL 55180585996 No Longer Active Bertrand Patel DO Active [facility] MELATONIN 5-10 MG CR-TABS Take one by mouth daily at bedtime 20 15/04/08 MELATONIN-PYRIDOXINE 44005533019 Active Bertrand Patel DO Activ e LORTAB 7.5-500 MG TABS take one po Q6 hours HYDROCODONE-ACETAMINOPHEN 03330607180 Active Bertrand Patel DO Active PROAIR HFA 108 (90 BASE) MCG/ACT AERS take one to two puffs po Q4-6 hour prn cough and shortness of breath ALBUTEROL SULFATE 2064154607 1 Active Adolfo OSORIO Active AZITHROMYCIN 250 MG TABS take 2 po today then take 1 po days 2-5 AZITHROMYCIN 98791185666 No Longer Active Adolfo OSORIO Active VITAMIN E 200 UNIT CAPS 1 cap po qd VITAMIN E 3735531652 5 Active Adolfo OSORIO Active PERMETHRIN 5 % CREA apply neck to toes tonight a nd then rinse off in morning. repeat at 7 days PERMETHRIN 46521241398 No Longer Active Adolfo OSORIO Active AMOXICILLIN 500 MG CAPS 2 po BID x 10 days AMOX ICILLIN 29508406191 No Longer Active Yoli Mercado MD PhD Active ALPRAZOLAM 0.5 MG TAB 1 tab by mouth tid ALPRAZOL AM 12544102683 Active Bertrand Patel DO Active PRAVASTATIN SODIUM 20 MG TABS 1 tablet by mouth daily at bedtime 20 05/12/02 PRAVASTATIN SODIUM 84040965529 Active Bertrand Patel DO Active B-12 1000 MCG CAPS 1 tab daily CYANOCOBALAMIN 7392797 2732 Active Bertrand Patel DO Active INSUPEN ULTRAFIN 31G X 6 MM MISC USE DIRECTED 03/04 INSULIN PEN NEEDLE 19088529791 No Longer Active Bertrand Patel DO Active TRANSDERM-SCOP 1.5 MG PT72 1 patch applied behind ear q 3 day 20 04/13/28 SCOPOLAMINE BASE 49673412390 No Longer Active Bertrand Patel DO Active MACRODANTIN 100 MG CAPS one p.o. b.i.d. x2 weeks 03/04 NITROFURANTOIN MACROCRYSTAL 04614824255 No Longer Active Bertrand Patel DO Active METFORMIN HCL 500 MG TABS 1 bid METFORMIN HCL 55876262 898 Active Bertrand Patel DO Active CINNAMON ALPHA LIPOIC AC CMPLX CAPS by mouth twice a d ay in AM by mouth twice a day in PM CINNAMON ALPHA LIPOIC AC CMPLX CAPS ALPHA LIPOIC [id number] CAPS Inactive AMOXICILLIN 500 MG CAPS 2 po BID x 10 days AMOXICILLIN 500 MG CAPS 613335 AMOXICILLIN Inactive MACRODANTIN 100 MG CAPS one p.o. b.i.d. x2 weeks 03/04 MACRODANTIN 100 MG CAPS 124823 NITROFURANTOIN MACROCRYSTAL Inactive TRANSDERM-SCOP 1.5 MG PT72 1 patch applied behind ear q 3 day 20 04/13/28 TRANSDERM-SCOP 1.5 MG PT72 SCOPOLAMINE BASE Inac tive WELLBUTRIN 75 MG TABS 2 times daily WELLBUTRIN 75 MG TABS 210413 BUPROPION HCL Inactive PERMETHRIN 5 % CREA apply neck to toes tonight a nd then rinse off in morning. repeat at 7 days PERMETHRIN 5 % CREA 284338 PERMETHRIN Inactive AZITHROMYCIN 250 MG TABS take 2 po today then take 1 po days 2-5 AZITHROMYCIN 250 MG TABS 6603339 AZITHROMYCIN Inactiv e AZITHROMYCIN 500 MG SOLR 1 po q day ALTA THROMYCIN 500 MG SOLR 555364 AZITHROMYCIN Inactive MICARDIS HCT 80-12.5 MG TABS 1 qd MICARDI S HCT 80-12.5 MG TABS 759185 TELMISARTAN-HCTZ Inactive CYMBALTA 30 MG CPEP 1 cap by mouth daily CYMBALTA 30 MG CPEP 607281 DULOXETINE HCL Inactive INSUPEN ULTRAFIN 31G X 6 MM MISC USE DIRECTED 03/04 INSUPEN ULTRAFIN 31G X 6 MM MISC INSULIN PEN NEEDLE Inactive Vital Signs Date Name Value Unit [...] - Chem istry sodium, serum 144 mmol/L 079-381 5861/06/18 potassium, serum 4.4 mmol/L 3.5-5.2 chloride, serum 101 mmol/L 98-107 carbon dioxide, venous blood 31.0 mmol/L 21.0-32 .0 blood glucose 50 mg/dL 65-110 calcium, serum 8.7 mg/dL 8.5-10.1 urea nitrogen, blood 20 mg/dL 7-18 creatinine, serum 1.00 mg/dL 0.60-1.30 Lab Report: CBC, Comp. Metabolic Panel, Thyroid Stimulating Hormone (L), ... - Chemistry sodium, serum 142 mmol/L 060-634 6619/02/27 potassium, serum 4.7 mmol/L 3.5-5.2 chloride, serum [...] mg/g{creat} 0-2 9 cholesterol, serum 168 mg/dL 846-757 1929/02/27 triglyceride, serum, fasting 101 mg/dL 30-200 HDL [...] 6.3 % 4.3-6.0 sodium, serum 143 mmol/L 274-220 9258/06/10 potassium, serum 5.0 mmol/L 3.5-5.2 chloride, serum [...] 0.30 mg/dL 0.00-1.00 cholesterol, serum 140 mg/dL 241-327 6147/11/08 triglyceride, serum, fasting 76 mg/dL 30-200 HDL cholesterol, serum 60 mg/dL 32-96 LDL cholesterol, serum 65 mg/dL 0-130 sodium, serum 143 mmol/L 968-082 0631/11/08 potassium, serum 4.8 mmol/L 3.5-5.2 chloride, serum [...] 5.0-8.5 Encounters Code Encounter Date Provider Facility CPT-10107 Level 2 Est. Patient 08:00:22 CDT Jcarlos dc MD [facility] CPT-33656 Level 3 Est. Patient 19:06:55 CDT Bertrand marquez [facility] CPT-77207 Level 3 Est. Patient 10:08:23 ARCADE TECHNICIAN Bertrand marquez [facility]-12246 Level 3 Est. Patient 16:37:54 ARCADE TECHNICIAN Bertrand marquez [facility] CPT-03414 Level 3 Est. Patient 11:31:59 ARCADE TECHNICIAN Bertrand marquez [facility] CPT-01005 Level 3 Est. Patient 10:20:08 CDT Adolfo villasenor [facility] CPT-26010 Level 3 Est. Patient 13:45:20 CDT Sanket buckley [facility] CPT-12549 Level 3 Est. Patient 12:51:06 CDT Adolfo villasenor [facility] CPT-90777 Level 3 Est. Patient 11:22:51 ARCADE TECHNICIAN Yoli tolbert MD PhD [facility]-02582 Level 3 Est. Patient 13:33:19 CDT Bertrand marquez [facility] Procedures Code Procedure Name Date Entry Date Standard Desc ription CPT-93708 Knee comp 4/> V 11:58:06 ARCADE TECHNICIAN
--- OUTSIDE RECORDS SUMMARY | 2019-11-13 10:37 | XMS REPORT | Clinical Summary ---
Author Author Admin, Enrique Adamson Organization [facility] Address Unknown Phone Allergies, Adverse Reactions, Alerts [...] SCABIES 133.0 Resolved Yoli Mercado MD PhD [facility] DIABETES V18.0 Active Lilia Clemons RN [...] TID PRN for muscle pain CYCLOBENZAPRINE HCL 91390735656 Active Brittni Ventura CONGREGATIONAL CARE PASTOR Active AMLODIPINE BESYLATE 5 MG TABS 1 tablet by mouth daily for bl ood pressure AMLODIPINE BESYLATE 63775384241 Active Bertrand Patel DO Active MICARDIS 80 MG TABS 1 tablet daily for blood pressure TELMISARTAN 48079772694 Active Bertrand Patel DO Active MICARDIS HCT 80-12.5 MG TABS 1 qd TELMISARTA N-HCTZ 88511943191 No Longer Active Bertrand Patel DO Active FUROSEMIDE 20 MG TABS take one po PRN FUROSEMIDE 32226701798 Active Bertrand Patel DO Active CINNAMON ALPHA LIPOIC AC CMPLX CAPS by mouth twice a d ay in AM by mouth twice a day in PM ALPHA LIPOIC [id number] CAPS 786525 03795 No Longer Active Bertrand Patel DO Active AZITHROMYCIN 500 MG SOLR 1 po q day AZITHROMYCI N 95570093832 No Longer Active Bertrand Patel DO Active CYMBALTA 30 MG CPEP 1 cap by mouth daily DULOXE CATHI HCL 43082367452 No Longer Active Bertrand Patel DO Active CYMBALTA 60 MG CPEP 1 cap by mouth daily DULOXE CATHI HCL 92189251491 Active Bertrand Patel DO Active WELLBUTRIN 75 MG TABS 2 times daily BUPROPION H CL 32541343159 No Longer Active Bertrand Patel DO Active [facility] MELATONIN 5-10 MG CR-TABS Take one by mouth daily at bedtime 20 15/04/08 MELATONIN-PYRIDOXINE 50454952214 Active Bertrand Patel DO Activ e LORTAB 7.5-500 MG TABS take one po Q6 hours HYDROCODONE-ACETAMINOPHEN 30688591072 Active Bertrand Patel DO Active PROAIR HFA 108 (90 BASE) MCG/ACT AERS take one to two puffs po Q4-6 hour prn cough and shortness of breath ALBUTEROL SULFATE 3009809241 1 Active Adolfo OSORIO Active AZITHROMYCIN 250 MG TABS take 2 po today then take 1 po days 2-5 AZITHROMYCIN 19927563122 No Longer Active Adolfo OSORIO Active VITAMIN E 200 UNIT CAPS 1 cap po qd VITAMIN E 8858759430 5 Active Adolfo OSORIO Active PERMETHRIN 5 % CREA apply neck to toes tonight a nd then rinse off in morning. repeat at 7 days PERMETHRIN 37000730100 No Longer Active Adolfo OSORIO Active AMOXICILLIN 500 MG CAPS 2 po BID x 10 days AMOX ICILLIN 13237514244 No Longer Active Yoli Mercado MD PhD Active ALPRAZOLAM 0.5 MG TAB 1 tab by mouth tid ALPRAZOL AM 17350819208 Active Bertrand Patel DO Active PRAVASTATIN SODIUM 20 MG TABS 1 tablet by mouth daily at bedtime 20 05/12/02 PRAVASTATIN SODIUM 41137278826 Active Bertrand Patel DO Active B-12 1000 MCG CAPS 1 tab daily CYANOCOBALAMIN 3793263 2732 Active Bertrand Patel DO Active INSUPEN ULTRAFIN 31G X 6 MM MISC USE DIRECTED 03/04 INSULIN PEN NEEDLE 32973017717 No Longer Active Bertrand Jacklyn Patel DO Active TRANSDERM-SCOP 1.5 MG PT72 1 patch applied behind ear q 3 day 20 04/13/28 SCOPOLAMINE BASE 78372439780 No Longer Active Bertrand Jacklyn Patel DO Active MACRODANTIN 100 MG CAPS one p.o. b.i.d. x2 weeks 03/04 NITROFURANTOIN MACROCRYSTAL 33214373431 No Longer Active Bertrand Jacklyn Patel DO Active METFORMIN HCL 500 MG TABS 1 bid METFORMIN HCL 69207272 898 Active Bertrand Patel DO Active MACRODANTIN 100 MG CAPS one p.o. b.i.d. x2 weeks 03/04 MACRODANTIN 100 MG CAPS 746113 NITROFURANTOIN MACROCRYSTAL Inactive TRANSDERM-SCOP 1.5 MG PT72 [...] at 7 days PERMETHRIN 5 % CREA 926609 PERMETHRIN Inactive WELLBUTRIN 75 MG TABS 2 times daily WELLBUTRIN 75 MG TABS 524661 BUPROPION HCL Inactive CYMBALTA 30 MG CPEP 1 cap by mouth daily CYMBALTA 30 MG CPEP 813901 DULOXETINE HCL Inactive AZITHROMYCIN 500 MG SOLR 1 po q day ALTA THROMYCIN 500 MG SOLR 390042 AZITHROMYCIN Inactive CINNAMON ALPHA LIPOIC AC CMPLX CAPS by mouth twice a d ay in AM by mouth twice a day in PM CINNAMON ALPHA LIPOIC AC CMPLX CAPS ALPHA LIPOIC [id number] CAPS Inactive MICARDIS HCT 80-12.5 MG TABS 1 qd MICARDI S HCT 80-12.5 MG TABS 547806 TELMISARTAN-HCTZ Inactive AMOXICILLIN 500 MG CAPS 2 po BID x 10 days AMOXICILLIN 500 MG CAPS 917737 AMOXICILLIN Inactive AZITHROMYCIN 250 MG TABS take 2 po today then take 1 po days 2-5 AZITHROMYCIN 250 MG TABS 6161512 AZITHROMYCIN Inactiv e Vital Signs Date Name [...] - Chem istry sodium, serum 144 mmol/L 105-881 5193/06/18 potassium, serum 4.4 mmol/L 3.5-5.2 chloride, serum 101 mmol/L 98-107 carbon dioxide, venous blood 31.0 mmol/L 21.0-32 .0 blood glucose 50 mg/dL 65-110 calcium, serum 8.7 mg/dL 8.5-10.1 urea nitrogen, blood 20 mg/dL 7-18 creatinine, serum 1.00 mg/dL 0.60-1.30 Lab Report: CBC, Comp. Metabolic Panel, Thyroid Stimulating Hormone (L), ... - Chemistry sodium, serum 142 mmol/L 343-731 1455/02/27 potassium, serum 4.7 mmol/L 3.5-5.2 chloride, serum [...] mg/g{creat} 0-2 9 cholesterol, serum 168 mg/dL 053-748 4508/02/27 triglyceride, serum, fasting 101 mg/dL 30-200 HDL [...] 6.3 % 4.3-6.0 sodium, serum 143 mmol/L 725-991 0403/06/10 potassium, serum 5.0 mmol/L 3.5-5.2 chloride, serum [...] 0.30 mg/dL 0.00-1.00 cholesterol, serum 140 mg/dL 397-340 2748/11/08 triglyceride, serum, fasting 76 mg/dL 30-200 HDL cholesterol, serum 60 mg/dL 32-96 LDL cholesterol, serum 65 mg/dL 0-130 sodium, serum 143 mmol/L 985-904 8783/11/08 potassium, serum 4.8 mmol/L 3.5-5.2 chloride, serum [...] 5.0-8.5 Encounters Code Encounter Date Provider Facility CPT-73367 Level 2 Est. Patient 08:00:22 CDT Jcarlos dc MD [facility] CPT-37955 Level 3 Est. Patient 19:06:55 CDT Bertrand marquez [facility] CPT-51400 Level 3 Est. Patient 10:08:23 CEPHALOMETRIC TECHNICIAN Bertrand marquez [facility]-50439 Level 3 Est. Patient 16:37:54 CEPHALOMETRIC TECHNICIAN Bertrand marquez [facility] CPT-40712 Level 3 Est. Patient 11:31:59 CEPHALOMETRIC TECHNICIAN Bertrand marquez [facility] CPT-54758 Level 3 Est. Patient 10:20:08 CDT Adolfo villasenor [facility] CPT-98885 Level 3 Est. Patient 13:45:20 CDT Sanket buckley [facility] CPT-29654 Level 3 Est. Patient 12:51:06 CDT Adolfo villasenor [facility] CPT-07318 Level 3 Est. Patient 11:22:51 CEPHALOMETRIC TECHNICIAN Yoli tolbert MD PhD [facility]-50673 Level 3 Est. Patient 13:33:19 CDT Bertrand marquez [facility] Procedures Code Procedure Name Date Entry Date Standard Desc ription CPT-27367 Knee comp 4/> V 11:58:06 CEPHALOMETRIC TECHNICIAN
--- OUTSIDE RECORDS SUMMARY | 2019-11-13 10:37 | XMS REPORT | Clinical Summary ---
Author Author Admin, Enrique Adamson Organization [facility] Address Unknown Phone Unavailable Allergies, Adverse [...] Generic Name NDC Status Provider Patient Instruction [facility] MELATONIN 5-10 MG CR-TABS Take one by mouth daily at bedtime MELATONIN-PYRIDOXINE 25448528829 No Longer Active Bertrand Patel DO Active VITAMIN E 200 UNIT CAPS 1 cap po qd VITAMIN E 316 76870556 No Longer Active Bertrand Patel DO Active B-12 1000 MCG CAPS 1 tab daily CYANOCOBALAMIN 31 818900060 No Longer Active Bertrand Patel DO Active METFORMIN HCL 500 MG TABS 1 bid METFORMIN HCL 04807846790 No Longer Active Bertrand Patel DO Active FUROSEMIDE 20 MG TABS 1 pill by mouth daily if needed for edema FUROSEMIDE 15373103746 No Longer Active Bertrand Patel DO Act jairo PRAVASTATIN SODIUM 20 MG TABS 1 tablet by mouth daily at bedtime PRAVASTATIN SODIUM 18150630786 No Longer Active Bertrand Patel DO Active AUGMENTIN 875-125 MG TABS 1 pill by mouth twice daily AMOXICILLIN-POT CLAVULANATE 54508010182 No Longer Active Yoli Mercado MD PhD Active LEVAQUIN 500 MG TABS 1 pill by mouth daily LEVO FLOXACIN 26573598880 No Longer Active Yoli Mercado MD PhD Active CYCLOBENZAPRINE HCL 10 MG TABS Take 1 tab TID PRN for muscle pain CYCLOBENZAPRINE HCL 09593091417 Active Brittni Randall RECREATIONAL VEHICLE RESORT MANAGER Active AMLODIPINE BESYLATE 5 MG TABS 1 tablet by mouth daily for bl ood pressure AMLODIPINE BESYLATE 39358314015 Active Yoli Polk hD Active MICARDIS 80 MG TABS 1 tablet daily for blood pressure TELMISARTAN 08764871883 Active Bertrand Patel DO Active MICARDIS HCT 80-12.5 MG TABS 1 qd TELMISARTA N-HCTZ 04920288814 No Longer Active Bertrand Patel DO Active CINNAMON ALPHA LIPOIC AC CMPLX CAPS by mouth twice a d ay in AM by mouth twice a day in PM ALPHA LIPOIC [id number] CAPS 921243 42743 No Longer Active Bertrand Patel DO Active AZITHROMYCIN 500 MG SOLR 1 po q day AZITHROMYCI N 90983941388 No Longer Active Bertrand Patel DO Active CYMBALTA 30 MG CPEP 1 cap by mouth daily DULOXE CATHI HCL 07439508764 No Longer Active Bertrand Patel DO Active CYMBALTA 60 MG CPEP 1 cap by mouth daily DULOXE CATHI HCL 82410758373 Active Bertrand Patel DO Active WELLBUTRIN 75 MG TABS 2 times daily BUPROPION H CL 26343065272 No Longer Active Bertrand Patel DO Active LORTAB 7.5-500 MG TABS take one po Q6 hours HYDROCODONE-ACETAMINOPHEN Active Bertrand Patel DO Active PROAIR HFA 108 (90 BASE) MCG/ACT AERS take one to two puffs po Q4-6 hour prn cough and shortness of breath ALBUTEROL SULFATE 2420288221 1 Active Adolfo OSORIO Active AZITHROMYCIN 250 MG TABS take 2 po today then take 1 po days 2-5 AZITHROMYCIN 35235150581 No Longer Active Adolfo OSORIO Active PERMETHRIN 5 % CREA apply neck to toes tonight a nd then rinse off in morning. repeat at 7 days PERMETHRIN 57802472328 No Longer Active Adolfo OSORIO Active AMOXICILLIN 500 MG CAPS 2 po BID x 10 days AMOX ICILLIN 82075204732 No Longer Active Yoli Mercado MD PhD Active ALPRAZOLAM 0.5 MG TAB 1 tab by mouth tid ALPRAZOL AM 56762411257 Active Bertrand Patel DO Active INSUPEN ULTRAFIN 31G X 6 MM MISC USE DIRECTED 03/04 INSULIN PEN NEEDLE 98344229140 No Longer Active Bertrand Patel DO Active TRANSDERM-SCOP 1.5 MG PT72 1 patch applied behind ear q 3 day 20 04/13/28 SCOPOLAMINE BASE 33844576376 No Longer Active Bertrand Patel DO Active MACRODANTIN 100 MG CAPS one p.o. b.i.d. x2 weeks 03/04 NITROFURANTOIN MACROCRYSTAL 09465455803 No Longer Active Bertrand Patel DO Active MACRODANTIN 100 MG CAPS one p.o. b.i.d. x2 weeks 03/04 MACRODANTIN 100 MG CAPS 703800 NITROFURANTOIN MACROCRYSTAL Inactive TRANSDERM-SCOP 1.5 MG PT72 [...] at 7 days PERMETHRIN 5 % CREA 134275 PERMETHRIN Inactive WELLBUTRIN 75 MG TABS 2 times daily WELLBUTRIN 75 MG TABS 320112 BUPROPION HCL Inactive CYMBALTA 30 MG CPEP 1 cap by mouth daily CYMBALTA 30 MG CPEP 461008 DULOXETINE HCL Inactive AZITHROMYCIN 500 MG SOLR 1 po q day ALTA THROMYCIN 500 MG SOLR 472787 AZITHROMYCIN Inactive CINNAMON ALPHA LIPOIC AC CMPLX CAPS by mouth twice a d ay in AM by mouth twice a day in PM CINNAMON ALPHA LIPOIC AC CMPLX CAPS ALPHA LIPOIC [id number] CAPS Inactive MICARDIS HCT 80-12.5 MG TABS 1 qd MICARDI S HCT 80-12.5 MG TABS 250664 TELMISARTAN-HCTZ Inactive PRAVASTATIN SODIUM 20 MG TABS 1 tablet by mouth daily at bedtime PRAVASTATIN SODIUM 20 MG TABS 943983 PRAVASTATIN SODIUM Inactive FUROSEMIDE 20 MG TABS 1 pill by mouth daily if needed for edema FUROSEMIDE 20 MG TABS 343243 FUROSEMIDE Inactive METFORMIN HCL 500 MG TABS 1 bid METFORMIN HCL 500 MG TABS 833905 METFORMIN HCL Inactive B-12 1000 MCG CAPS 1 tab daily B-12 1000 MCG CAP S CYANOCOBALAMIN Inactive VITAMIN E 200 UNIT CAPS 1 cap po qd VITAMIN E 2 00 UNIT CAPS 3406039 VITAMIN E Inactive [facility] MELATONIN 5-10 MG CR-TABS Take one by mouth daily at bedtime [facility] MELATONIN 5-10 MG CR-TABS MELATONIN-PYRIDOXI NE Inactive AMOXICILLIN 500 MG CAPS 2 po BID x 10 days AMOXICILLIN 500 MG CAPS 887854 AMOXICILLIN Inactive AZITHROMYCIN 250 MG TABS take 2 po today then take 1 po days 2-5 AZITHROMYCIN 250 MG TABS 7271498 AZITHROMYCIN Inactiv e LEVAQUIN 500 MG TABS 1 pill by mouth daily LEVAQUIN 500 MG TABS 051512 LEVOFLOXACIN Inactive AUGMENTIN 875-125 MG TABS 1 pill by mouth twice daily AUGMENTIN 875-125 MG TABS 213182 AMOXICILLIN-POT CLAVULANATE Inacti ve Vital Signs Date [...] - 3141-9 419.56 [lb_av] Weigh t Measured blood pressure, diastolic - 8462-4 92 mm[Hg] BP frederick blood pressure, systolic - 8480-6 146 mm[Hg] BP sys height E&M - 8302-2 65 [in_us] Bdy h eight pulse rate E&M - 8867-4 111 /min H eart rate temperature E&M 97.9 [degF] Body temp erature weight E&M - 3141-9 403 [lb_av] Weigh t Measured blood pressure, diastolic - 8462-4 98 mm[Hg] BP freedrick blood pressure, systolic - 8480-6 171 mm[Hg] BP sys height E&M - 8302-2 65 [in_us] Bdy h eight pulse rate E&M - 8867-4 96 /min H eart rate temperature E&M 98.7 [degF] Body temp erature weight E&M - 3141-9 402 [lb_av] Weigh t Measured blood pressure, diastolic - 8462-4 96 mm[Hg] BP frederick blood pressure, systolic - 8480-6 151 mm[Hg] BP sys height E&M - 8302-2 65 [in_us] Bdy h eight pulse rate E&M - 8867-4 94 /min H eart rate temperature E&M 98.2 [degF] Body temp erature weight E&M - 3141-9 417.25 [lb_av] Weigh t Measured blood pressure, diastolic - 8462-4 89 mm[Hg] BP frederick blood pressure, systolic - 8480-6 142 mm[Hg] BP sys height E&M - 8302-2 65 [in_us] Bdy h eight pulse rate E&M - 8867-4 101 /min H eart rate temperature E&M 99.0 [degF] Body temp erature weight E&M - 3141-9 422.50 [lb_av] Weigh t Measured Diagnostic Results Date Name Value Unit Range Description Lab Report: CBC, Comp. Metabolic Panel, Thyroid Stimulating Hormone (L), ... - Chemistry sodium, serum 142 mmol/L 973-431 7902/02/27 potassium, serum 4.7 mmol/L 3.5-5.2 chloride, serum [...] mg/g{creat} 0-2 9 cholesterol, serum 168 mg/dL 978-015 3525/02/27 triglyceride, serum, fasting 101 mg/dL 30-200 HDL [...] Lab microalbumin, urine 30 0-19 Lab Report: Comp. Metabolic Panel, HGBA1 C, CBC - Chemistry sodium, serum 139 mmol/L 173-041 8660/10/31 potassium, serum 4.5 mmol/L 3.5-5.2 chloride, serum [...] .6-14.8 platelet count 346 10^3/MM^3 10*3/mm3 142-424 Lab Report: UADIP W/MICRO, AUTO - Chemis try RBC, urine, dipstick Negative Negative protein, total urine random Trace mg/dL Negative Lab Report: UADIP W/MICRO, AUTO - Urinal ysis glucose, urine, semiquantitative Negative Neg ative ketones, urine, by test strip Negative Negati ve bilirubin, urine Negative Negative urine color Yellow Colorless;Lightyellow;St raw;Yellow appearance, urine Clear Clear specific gravity, urine 1.025 1.000-1.030 pH, urine, semiquantitative 6.0 5.0-8.5 urobilinogen, urine, semiquantitative (dipstick) 0.2 Normal leukocyte esterase, urine, by dipstick Negative Negative nitrite, urine, semiquantitative Negative Neg ative Office Visit: cellulitis - Chemistry cholesterol, target level 200 mg/dL triglyceride, target level 200 mg/dL HDL cholesterol, serum, target level 35 mg/dL LDL target level 100 mg/dL Encounters Code Encounter Date Provider Facility CPT-22427 Level 3 Est. Patient 12:56:37 CDT Bertrand marquez [facility] CPT-73144 Level 3 Est. Patient 19:12:03 CDT Yoli tolbert MD PhD [facility] CPT-20325 Level 3 Est. Patient 14:36:01 CDT Yoli tolbert MD PhD [facility] CPT-90448 Level 2 Est. Patient 08:00:22 CDT Jcarlos dc MD [facility] CPT-30650 Level 3 Est. Patient 19:06:55 CDT Bertrand marquez [facility] CPT-46291 Level 3 Est. Patient 10:08:23 BANQUET PREP COOK Bertrand marquez [facility] CPT-55405 Level 3 Est. Patient 16:37:54 BANQUET PREP COOK Bertrand marquez [facility] CPT-37537 Level 3 Est. Patient 11:31:59 BANQUET PREP COOK Bertrand marquze [facility] CPT-73586 Level 3 Est. Patient 10:20:08 CDT Adolfo villasenor [facility] CPT-26439 Level 3 Est. Patient 13:45:20 CDT Sanket buckley [facility] CPT-79872 Level 3 Est. Patient 12:51:06 CDT Adolfo villasenor [facility] CPT-56169 Level 3 Est. Patient 11:22:51 BANQUET PREP COOK Yoli tolbert MD PhD [facility] CPT-40170 Level 3 Est. Patient 13:33:19 CDT Bertrand marquez [facility] Procedures Code Procedure Name Date Entry Date Standard Desc ription CPT-25063 Knee comp 4/> V 11:58:06 BANQUET PREP COOK
--- OUTSIDE RECORDS SUMMARY | 2019-11-13 10:37 | XMS REPORT | Clinical Summary ---
Author Author Admin, Enrique Adamson Organization [facility] Address Unknown Phone Unavailable Allergies, [...] HOURS BY MOUTH NEEDED FOR PAIN HYDROCODONE-ACETAMINOPHEN 80557967250 Acti ve Nirmal Robbins RN Active LORTAB 7.5-500 MG TABS take one po Q6 hours HYDROCODONE-ACETAMINOPHEN No Longer Active Nirmal Robbins RN Active [facility] MELATONIN 5-10 MG CR-TABS Take one by mouth daily at bedtime MELATONIN-PYRIDOXINE 16308960616 No Longer Active Bertrand Patel DO Active VITAMIN E 200 UNIT CAPS 1 cap po qd VITAMIN E 316 85694638 No Longer Active Bertrand Patel DO Active B-12 1000 MCG CAPS 1 tab daily CYANOCOBALAMIN 31 086828704 No Longer Active Bertrand Patel DO Active METFORMIN HCL 500 MG TABS 1 bid METFORMIN HCL 60436374710 No Longer Active Bertrand Patel DO Active FUROSEMIDE 20 MG TABS 1 pill by mouth daily if needed for edema FUROSEMIDE 88011912923 No Longer Active Bertrand Patel DO Act jairo PRAVASTATIN SODIUM 20 MG TABS 1 tablet by mouth daily at bedtime PRAVASTATIN SODIUM 34206248957 No Longer Active Bertrand Patel DO Active AUGMENTIN 875-125 MG TABS 1 pill by mouth twice daily AMOXICILLIN-POT CLAVULANATE 09000760482 No Longer Active Yoli Mercado MD PhD Active LEVAQUIN 500 MG TABS 1 pill by mouth daily LEVO FLOXACIN 88332686072 No Longer Active Yoli Mercado MD PhD Active CYCLOBENZAPRINE HCL 10 MG TABS Take 1 tab TID PRN for muscle pain CYCLOBENZAPRINE HCL 94092062746 Active Brittni Perrin Prakash SCAFFOLD BUILDER Active AMLODIPINE BESYLATE 5 MG TABS 1 tablet by mouth daily for bl ood pressure AMLODIPINE BESYLATE 18267781417 Active Bertrand Patel DO Active MICARDIS 80 MG TABS 1 tablet daily for blood pressure TELMISARTAN 57587859457 Active Bertrand Patel DO Active MICARDIS HCT 80-12.5 MG TABS 1 qd TELMISARTA N-HCTZ 32620188118 No Longer Active Bertrand Patel DO Active CINNAMON ALPHA LIPOIC AC CMPLX CAPS by mouth twice a d ay in AM by mouth twice a day in PM ALPHA LIPOIC [id number] CAPS 131570 67505 No Longer Active Bertrand Patel DO Active AZITHROMYCIN 500 MG SOLR 1 po q day AZITHROMYCI N 29766086029 No Longer Active Bertrand Patel DO Active CYMBALTA 30 MG CPEP 1 cap by mouth daily DULOXE CATHI HCL 61130828278 No Longer Active Bertrand Patel DO Active CYMBALTA 60 MG CPEP 1 cap by mouth daily DULOXE CATHI HCL 19493092485 Active Bertrand Patel DO Active WELLBUTRIN 75 MG TABS 2 times daily BUPROPION H CL 77839255060 No Longer Active Bertrand Patel DO Active PROAIR HFA 108 (90 BASE) MCG/ACT AERS take one to two puffs po Q4-6 hour prn cough and shortness of breath ALBUTEROL SULFATE 8727201653 1 Active Adolfo OSORIO Active AZITHROMYCIN 250 MG TABS take 2 po today then take 1 po days 2-5 AZITHROMYCIN 83800330596 No Longer Active Adolfo OSORIO Active PERMETHRIN 5 % CREA apply neck to toes tonight a nd then rinse off in morning. repeat at 7 days PERMETHRIN 74823495727 No Longer Active Adolfo OSORIO Active AMOXICILLIN 500 MG CAPS 2 po BID x 10 days AMOX ICILLIN 78381823142 No Longer Active Yoli Mercado MD PhD Active ALPRAZOLAM 0.5 MG TAB 1 tab by mouth tid ALPRAZOL AM 02013926511 Active Bertrand Patel DO Active INSUPEN ULTRAFIN 31G X 6 MM MISC USE DIRECTED 03/04 INSULIN PEN NEEDLE 63117015210 No Longer Active Bertrand Patel DO Active TRANSDERM-SCOP 1.5 MG PT72 1 patch applied behind ear q 3 day 20 04/13/28 SCOPOLAMINE BASE 36650028867 No Longer Active Bertrand Patel DO Active MACRODANTIN 100 MG CAPS one p.o. b.i.d. x2 weeks 03/04 NITROFURANTOIN MACROCRYSTAL 65097814772 No Longer Active Bertrand Patel DO Active MACRODANTIN 100 MG CAPS one p.o. b.i.d. x2 weeks 03/04 MACRODANTIN 100 MG CAPS 245114 NITROFURANTOIN MACROCRYSTAL Inactive TRANSDERM-SCOP 1.5 MG PT72 [...] at 7 days PERMETHRIN 5 % CREA 766961 PERMETHRIN Inactive WELLBUTRIN 75 MG TABS 2 times daily WELLBUTRIN 75 MG TABS 050681 BUPROPION HCL Inactive CYMBALTA 30 MG CPEP 1 cap by mouth daily CYMBALTA 30 MG CPEP 207468 DULOXETINE HCL Inactive AZITHROMYCIN 500 MG SOLR 1 po q day ALTA THROMYCIN 500 MG SOLR 699999 AZITHROMYCIN Inactive CINNAMON ALPHA LIPOIC AC CMPLX CAPS by mouth twice a d ay in AM by mouth twice a day in PM CINNAMON ALPHA LIPOIC AC CMPLX CAPS ALPHA LIPOIC [id number] CAPS Inactive MICARDIS HCT 80-12.5 MG TABS 1 qd MICARDI S HCT 80-12.5 MG TABS 518653 TELMISARTAN-HCTZ Inactive PRAVASTATIN SODIUM 20 MG TABS 1 tablet by mouth daily at bedtime PRAVASTATIN SODIUM 20 MG TABS 687414 PRAVASTATIN SODIUM Inactive FUROSEMIDE 20 MG TABS 1 pill by mouth daily if needed for edema FUROSEMIDE 20 MG TABS 070122 FUROSEMIDE Inactive METFORMIN HCL 500 MG TABS 1 bid METFORMIN HCL 500 MG TABS 558487 METFORMIN HCL Inactive B-12 1000 MCG CAPS 1 tab daily B-12 1000 MCG CAP S CYANOCOBALAMIN Inactive VITAMIN E 200 UNIT CAPS 1 cap po qd VITAMIN E 2 00 UNIT CAPS 8507369 VITAMIN E Inactive [facility] MELATONIN 5-10 MG CR-TABS Take one by mouth daily at bedtime [facility] MELATONIN 5-10 MG CR-TABS MELATONIN-PYRIDOXI NE Inactive LORTAB 7.5-500 MG TABS take one po Q6 hours LORTAB 7.5-500 MG TABS HYDROCODONE-ACETAMINOPHEN Inactive AMOXICILLIN 500 MG CAPS 2 po BID x 10 days AMOXICILLIN 500 MG CAPS 676922 AMOXICILLIN Inactive AZITHROMYCIN 250 MG TABS take 2 po today then take 1 po days 2-5 AZITHROMYCIN 250 MG TABS 5558253 AZITHROMYCIN Inactiv e LEVAQUIN 500 MG TABS 1 pill by mouth daily LEVAQUIN 500 MG TABS 861039 LEVOFLOXACIN Inactive AUGMENTIN 875-125 MG TABS 1 pill by mouth twice daily AUGMENTIN 875-125 MG TABS 358511 AMOXICILLIN-POT CLAVULANATE Inacti ve Vital Signs Date [...] pressure, diastolic - 8462-4 98 mm[Hg] BP frederick blood pressure, systolic - 8480-6 171 mm[Hg] [...] ... - Chemistry sodium, serum 142 mmol/L 158-831 9484/02/27 potassium, serum 4.7 mmol/L 3.5-5.2 chloride, serum [...] mg/g{creat} 0-2 9 cholesterol, serum 168 mg/dL 291-687 2539/02/27 triglyceride, serum, fasting 101 mg/dL 30-200 HDL [...] CBC - Chemistry sodium, serum 139 mmol/L 227-842 5744/10/31 potassium, serum 4.5 mmol/L 3.5-5.2 chloride, serum [...] mg/dL Encounters Code Encounter Date Provider Facility CPT-90700 Level 3 Est. Patient 12:56:37 CDT Bertrand marquez DO [facility] CPT-98997 Level 3 Est. Patient 19:12:03 CDT Yoli tolbert MD PhD [facility] CPT-12222 Level 3 Est. Patient 14:36:01 CDT Yoli tolbert MD PhD [facility] CPT-23198 Level 2 Est. Patient 08:00:22 CDT Jcarlos dc MD [facility]-10373 Level 3 Est. Patient 19:06:55 CDT Bertrand marquez [facility] CPT-47331 Level 3 Est. Patient 10:08:23 PUBLIC SAFETY OFFICER Bertrand marquez [facility] CPT-56329 Level 3 Est. Patient 16:37:54 PUBLIC SAFETY OFFICER Bertrand marquez [facility] CPT-46739 Level 3 Est. Patient 11:31:59 PUBLIC SAFETY OFFICER Bertrand marquez [facility] CPT-22235 Level 3 Est. Patient 10:20:08 CDT Adolfo villasenor [facility] CPT-84300 Level 3 Est. Patient 13:45:20 CDT Sanket buckley [facility] CPT-61389 Level 3 Est. Patient 12:51:06 CDT Adolfo villasenor [facility] CPT-77032 Level 3 Est. Patient 11:22:51 PUBLIC SAFETY OFFICER Yoli tolbert MD PhD [facility] CPT-97622 Level 3 Est. Patient 13:33:19 CDT Bertrand marquez [facility] Procedures Code Procedure Name Date Entry Date Standard Desc ription CPT-38223 Knee comp 4/> V 11:58:06 PUBLIC SAFETY OFFICER
--- OUTSIDE RECORDS SUMMARY | 2019-11-13 10:38 | XMS REPORT | Clinical Summary ---
Author Author Admin, Enrique Adamson Organization [facility] Address Unknown Phone Unavailable Allergies, Adverse [...] one by mouth daily at bedtime MELATONIN-PYRIDOXINE 18496258202 No Longer Active Bertrand Patel DO Active VITAMIN E 200 UNIT CAPS 1 cap po qd VITAMIN E 316 79041978 No Longer Active Bertrand Patel DO Active B-12 1000 MCG CAPS 1 tab daily CYANOCOBALAMIN 31 831089116 No Longer Active Bertrand Patel DO Active METFORMIN HCL 500 MG TABS 1 bid METFORMIN HCL 97920776758 No Longer Active Bertrand Patel DO Active FUROSEMIDE 20 MG TABS 1 pill by mouth daily if needed for edema FUROSEMIDE 07295692209 No Longer Active Bertrand Patel DO Act jairo PRAVASTATIN SODIUM 20 MG TABS 1 tablet by mouth daily at bedtime PRAVASTATIN SODIUM 52885910902 No Longer Active Bertrand Patel DO Active AUGMENTIN 875-125 MG TABS 1 pill by mouth twice daily AMOXICILLIN-POT CLAVULANATE 56019614475 No Longer Active Yoli Mercado MD PhD Active LEVAQUIN 500 MG TABS 1 pill by mouth daily LEVO FLOXACIN 18692451038 No Longer Active Yoli Mercado MD PhD Active CYCLOBENZAPRINE HCL 10 MG TABS Take 1 tab TID PRN for muscle pain CYCLOBENZAPRINE HCL 42125156005 Active Brittni Randall FUSING 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 Active AMLODIPINE BESYLATE 5 MG TABS 1 tablet by mouth daily for bl ood pressure AMLODIPINE BESYLATE 18669420073 Active Bertrand Patel DO Active MICARDIS 80 MG TABS 1 tablet daily for blood pressure TELMISARTAN 14798854520 Active Bertrand Patel DO Active MICARDIS HCT 80-12.5 MG TABS 1 qd TELMISARTA N-HCTZ 91200325954 No Longer Active Bertrand Patel DO Active CINNAMON ALPHA LIPOIC AC CMPLX CAPS by mouth twice a d ay in AM by mouth twice a day in PM ALPHA LIPOIC [id number] CAPS 499598 20362 No Longer Active Bertrand Patel DO Active AZITHROMYCIN 500 MG SOLR 1 po q day AZITHROMYCI N 62389616793 No Longer Active Bertrand Patel DO Active CYMBALTA 30 MG CPEP 1 cap by mouth daily DULOXE CATHI HCL 92843442359 No Longer Active Bertrand Patel DO Active CYMBALTA 60 MG CPEP 1 cap by mouth daily DULOXE CATHI HCL 49217861365 Active Bertrand Patel DO Active WELLBUTRIN 75 MG TABS 2 times daily BUPROPION H CL 73636429152 No Longer Active Bertrand Patel DO Active LORTAB 7.5-500 MG TABS take one po Q6 hours HYDROCODONE-ACETAMINOPHEN Active Bertrand Patel DO Active PROAIR HFA 108 (90 BASE) MCG/ACT AERS take one to two puffs po Q4-6 hour prn cough and shortness of breath ALBUTEROL SULFATE 3505113037 1 Active Adolfo OSORIO Active AZITHROMYCIN 250 MG TABS take 2 po today then take 1 po days 2-5 AZITHROMYCIN 31870098913 No Longer Active Adolfo OSORIO Active PERMETHRIN 5 % CREA apply neck to toes tonight a nd then rinse off in morning. repeat at 7 days PERMETHRIN 88025001491 No Longer Active Adolof OSORIO Active AMOXICILLIN 500 MG CAPS 2 po BID x 10 days AMOX ICILLIN 78724545283 No Longer Active Yoli Mercado MD PhD Active ALPRAZOLAM 0.5 MG TAB 1 tab by mouth tid ALPRAZOL AM 30856546550 Active Bertrand Patel DO Active INSUPEN ULTRAFIN 31G X 6 MM MISC USE DIRECTED 03/04 INSULIN PEN NEEDLE 62728618191 No Longer Active Bertrand Patel DO Active TRANSDERM-SCOP 1.5 MG PT72 1 patch applied behind ear q 3 day 20 04/13/28 SCOPOLAMINE BASE 03767065175 No Longer Active Bertrand Patel DO Active MACRODANTIN 100 MG CAPS one p.o. b.i.d. x2 weeks 03/04 NITROFURANTOIN MACROCRYSTAL 23303165285 No Longer Active Bertrand Patel DO Active MACRODANTIN 100 MG CAPS one p.o. b.i.d. x2 weeks 03/04 MACRODANTIN 100 MG CAPS 456799 NITROFURANTOIN MACROCRYSTAL Inactive TRANSDERM-SCOP 1.5 MG PT72 [...] at 7 days PERMETHRIN 5 % CREA 394366 PERMETHRIN Inactive WELLBUTRIN 75 MG TABS 2 times daily WELLBUTRIN 75 MG TABS 439766 BUPROPION HCL Inactive CYMBALTA 30 MG CPEP 1 cap by mouth daily CYMBALTA 30 MG CPEP 955684 DULOXETINE HCL Inactive AZITHROMYCIN 500 MG SOLR 1 po q day ALTA THROMYCIN 500 MG SOLR 014710 AZITHROMYCIN Inactive CINNAMON ALPHA LIPOIC AC CMPLX CAPS by mouth twice a d ay in AM by mouth twice a day in PM CINNAMON ALPHA LIPOIC AC CMPLX CAPS ALPHA LIPOIC [id number] CAPS Inactive MICARDIS HCT 80-12.5 MG TABS 1 qd MICARDI S HCT 80-12.5 MG TABS 720765 TELMISARTAN-HCTZ Inactive PRAVASTATIN SODIUM 20 MG TABS 1 tablet by mouth daily at bedtime PRAVASTATIN SODIUM 20 MG TABS 003946 PRAVASTATIN SODIUM Inactive FUROSEMIDE 20 MG TABS 1 pill by mouth daily if needed for edema FUROSEMIDE 20 MG TABS 115382 FUROSEMIDE Inactive METFORMIN HCL 500 MG TABS 1 bid METFORMIN HCL 500 MG TABS 763956 METFORMIN HCL Inactive B-12 1000 MCG CAPS 1 tab daily B-12 1000 MCG CAP S CYANOCOBALAMIN Inactive VITAMIN E 200 UNIT CAPS 1 cap po qd VITAMIN E 2 00 UNIT CAPS 2315386 VITAMIN E Inactive [facility] MELATONIN 5-10 MG CR-TABS Take one by mouth daily at bedtime [facility] MELATONIN 5-10 MG CR-TABS MELATONIN-PYRIDOXI NE Inactive AMOXICILLIN 500 MG CAPS 2 po BID x 10 days AMOXICILLIN 500 MG CAPS 516064 AMOXICILLIN Inactive AZITHROMYCIN 250 MG TABS take 2 po today then take 1 po days 2-5 AZITHROMYCIN 250 MG TABS 2787856 AZITHROMYCIN Inactiv e LEVAQUIN 500 MG TABS 1 pill by mouth daily LEVAQUIN 500 MG TABS 109815 LEVOFLOXACIN Inactive AUGMENTIN 875-125 MG TABS 1 pill by mouth twice daily AUGMENTIN 875-125 MG TABS 240928 AMOXICILLIN-POT CLAVULANATE Inacti ve Vital Signs Date [...] ... - Chemistry sodium, serum 142 mmol/L 711-526 2207/02/27 potassium, serum 4.7 mmol/L 3.5-5.2 chloride, serum [...] mg/g{creat} 0-2 9 cholesterol, serum 168 mg/dL 090-052 4873/02/27 triglyceride, serum, fasting 101 mg/dL 30-200 HDL [...] CBC - Chemistry sodium, serum 139 mmol/L 192-832 6813/10/31 potassium, serum 4.5 mmol/L 3.5-5.2 chloride, serum [...] mg/dL Encounters Code Encounter Date Provider Facility CPT-19699 Level 3 Est. Patient 12:56:37 CDT Bertrand marquez [facility] CPT-23034 Level 3 Est. Patient 19:12:03 CDT Yoli tolbert MD PhD [facility] CPT-10873 Level 3 Est. Patient 14:36:01 CDT Yoli tolbert MD PhD [facility] CPT-76330 Level 2 Est. Patient 08:00:22 CDT Jcarlos dc MD [facility] CPT-44525 Level 3 Est. Patient 19:06:55 CDT Bertrand marquez [facility] CPT-18537 Level 3 Est. Patient 10:08:23 AIRFIELD DEFENCE GUARD Bertrand marquez [facility] CPT-08012 Level 3 Est. Patient 16:37:54 [employer]FIELD DEFENCE GUARD Bertrand marquez [facility] CPT-99775 Level 3 Est. Patient 11:31:59 AIRFIELD DEFENCE GUARD Bertrand marquez [facility] CPT-69929 Level 3 Est. Patient 10:20:08 CDT Adolfo villasenor [facility] CPT-95951 Level 3 Est. Patient 13:45:20 CDT Sanket buckley [facility] CPT-84401 Level 3 Est. Patient 12:51:06 CDT Adolfo villasenor [facility] CPT-43369 Level 3 Est. Patient 11:22:51 AIRFIELD DEFENCE GUARD Yoli tolbert MD PhD [facility] CPT-25929 Level 3 Est. Patient 13:33:19 CDT Bertrand marquez [facility] Procedures Code Procedure Name Date Entry Date Standard Desc ription CPT-73600 Knee comp 4/> V 11:58:06 AIRFIELD DEFENCE GUARD
--- OUTSIDE RECORDS SUMMARY | 2019-11-13 10:38 | XMS REPORT | Clinical Summary ---
Author Author Admin, Enrique Adamson Organization [facility] Address Unknown Phone Unavailable Allergies, Adverse Reactions, [...] RIB PAIN, RIGHT SIDED 786.50 Resolved Yoli eMrcado MD PhD Unspecified chest pain KNEE PAIN, RIGHT 719.46 Active Adolfo OSORIO Pain in joint involving lower leg Knee pain, left 719.46 Active Bertrand Patel DO Pain in joint involving lower leg Diabetes, Type 2 250.00 Active Bertrand Jacklyn Jorge DO Diabetes mellitus without mention of complication, [...] Mercado MD PhD Foreign body in ear HEALTH SCREENING ICD-V70.0 Inactive Yoli sabillon MD [...] Instructions Start Date Stop Date Generic Name [facility] Status Provider Patient Instruction AUGMENTIN 875-125 MG TABS 1 pill by mouth twice daily AMOXICILLIN-POT CLAVULANATE 76348770760 Active Yoli Mercado MD PhD Active FUROSEMIDE 20 MG TABS 1 pill by mouth daily if needed for edema 201 09/01/01 FUROSEMIDE 51057011964 Active Yoli Mercado MD PhD Active LEVAQUIN 500 MG TABS 1 pill by mouth daily LEVO FLOXACIN 35015112632 No Longer Active Yoli Mercado MD PhD Active CYCLOBENZAPRINE HCL 10 MG TABS Take 1 tab TID PRN for muscle pain CYCLOBENZAPRINE HCL 17529416362 Active Brittni Fernándezum INTERNET ECOMMERCE SPECIALIST Active AMLODIPINE BESYLATE 5 MG TABS 1 tablet by mouth daily for bl ood pressure AMLODIPINE BESYLATE 98090103239 Active Yoli Mercado MD P hD Active MICARDIS 80 MG TABS 1 tablet daily for blood pressure TELMISARTAN 83218279339 Active Bertrand Patel DO Active MICARDIS HCT 80-12.5 MG TABS 1 qd TELMISARTA N-HCTZ 16583952658 No Longer Active Bertrand Patel DO Active CINNAMON ALPHA LIPOIC AC CMPLX CAPS by mouth twice a d ay in AM by mouth twice a day in PM ALPHA LIPOIC [id number] CAPS 543902 09962 No Longer Active Bertrand Patel DO Active AZITHROMYCIN 500 MG SOLR 1 po q day AZITHROMYCI N 63884506241 No Longer Active Bertrand Patel DO Active CYMBALTA 30 MG CPEP 1 cap by mouth daily DULOXE CATHI HCL 66914550146 No Longer Active Bertrand Patel DO Active CYMBALTA 60 MG CPEP 1 cap by mouth daily DULOXE CATHI HCL 17869933284 Active Bertrand Patel DO Active WELLBUTRIN 75 MG TABS 2 times daily BUPROPION H CL 37902040404 No Longer Active Bertrand Patel DO Active [facility] MELATONIN 5-10 MG CR-TABS Take one by mouth daily at bedtime 20 15/04/08 MELATONIN-PYRIDOXINE 17475410898 Active Bertrand Patel DO Activ e LORTAB 7.5-500 MG TABS take one po Q6 hours HYDROCODONE-ACETAMINOPHEN Active Bertrand Patel DO Active PROAIR HFA 108 (90 BASE) MCG/ACT AERS take one to two puffs po Q4-6 hour prn cough and shortness of breath ALBUTEROL SULFATE 1879082769 1 Active Adolfo OSORIO Active AZITHROMYCIN 250 MG TABS take 2 po today then take 1 po days 2-5 AZITHROMYCIN 96719315267 No Longer Active Adolfo OSORIO Active VITAMIN E 200 UNIT CAPS 1 cap po qd VITAMIN E 5461878762 5 Active Adolfo OSORIO Active PERMETHRIN 5 % CREA apply neck to toes tonight a nd then rinse off in morning. repeat at 7 days PERMETHRIN 11486017286 No Longer Active Adolfo OSORIO Active AMOXICILLIN 500 MG CAPS 2 po BID x 10 days AMOX ICILLIN 42960850330 No Longer Active Yoli Mercado MD PhD Active ALPRAZOLAM 0.5 MG TAB 1 tab by mouth tid ALPRAZOL AM 44647727874 Active Bertrand Patel DO Active PRAVASTATIN SODIUM 20 MG TABS 1 tablet by mouth daily at bedtime 20 05/12/02 PRAVASTATIN SODIUM 46471472265 Active Bertrand Patel DO Active B-12 1000 MCG CAPS 1 tab daily CYANOCOBALAMIN 4865954 2732 Active Bertrand Patel DO Active INSUPEN ULTRAFIN 31G X 6 MM MISC USE DIRECTED 03/04 INSULIN PEN NEEDLE 11047426005 No Longer Active Bertrand Patel DO Active TRANSDERM-SCOP 1.5 MG PT72 1 patch applied behind ear q 3 day 20 04/13/28 SCOPOLAMINE BASE 14446674412 No Longer Active Bertrand Patel DO Active MACRODANTIN 100 MG CAPS one p.o. b.i.d. x2 weeks 03/04 NITROFURANTOIN MACROCRYSTAL 86770899511 No Longer Active Bertrand Patel DO Active METFORMIN HCL 500 MG TABS 1 bid METFORMIN HCL 77856772 898 Active Bertrand Patel DO Active MACRODANTIN 100 MG CAPS one p.o. b.i.d. x2 weeks 03/04 MACRODANTIN 100 MG CAPS 161575 NITROFURANTOIN MACROCRYSTAL Inactive TRANSDERM-SCOP 1.5 MG PT72 [...] at 7 days PERMETHRIN 5 % CREA 530983 PERMETHRIN Inactive WELLBUTRIN 75 MG TABS 2 times daily WELLBUTRIN 75 MG TABS 171638 BUPROPION HCL Inactive CYMBALTA 30 MG CPEP 1 cap by mouth daily CYMBALTA 30 MG CPEP 418721 DULOXETINE HCL Inactive AZITHROMYCIN 500 MG SOLR 1 po q day ALTA THROMYCIN 500 MG SOLR 472572 AZITHROMYCIN Inactive CINNAMON ALPHA LIPOIC AC CMPLX CAPS by mouth twice a d ay in AM by mouth twice a day in PM CINNAMON ALPHA LIPOIC AC CMPLX CAPS ALPHA LIPOIC [id number] CAPS Inactive MICARDIS HCT 80-12.5 MG TABS 1 qd MICARDI S HCT 80-12.5 MG TABS 489769 TELMISARTAN-HCTZ Inactive AMOXICILLIN 500 MG CAPS 2 po BID x 10 days AMOXICILLIN 500 MG CAPS 348205 AMOXICILLIN Inactive AZITHROMYCIN 250 MG TABS take 2 po today then take 1 po days 2-5 AZITHROMYCIN 250 MG TABS 9680300 AZITHROMYCIN Inactiv e LEVAQUIN 500 MG TABS 1 pill by mouth daily LEVAQUIN 500 MG TABS 450565 LEVOFLOXACIN Inactive Vital Signs Date Name Value Unit Range Description blood pressure, diastolic 74 mm[Hg] BP fred[place]ick blood pressure, systolic 116 mm[Hg] BP sys height E&M 65 [in_us] Bdy height pulse rate E&M 87 /min Heart rate temperature E&M 98.4 [degF] Body temp erature weight E&M 407 [lb_av] Weight Measure d blood pressure, diastolic 82 mm[Hg] BP fred[place]ick blood pressure, systolic 152 mm[Hg] BP sys height E&M 65 [in_us] Bdy height pulse rate E&M 101 /min Heart rate temperature E&M 98.2 [degF] Body temp erature weight E&M 419.56 [lb_av] Weight Measure d blood pressure, diastolic 92 mm[Hg] BP fredeirck blood pressure, systolic 146 mm[Hg] BP sys height E&M 65 [in_us] Bdy height pulse rate E&M 111 /min Heart rate temperature E&M 97.9 [degF] Body temp erature weight E&M 403 [lb_av] Weight Measure d blood pressure, diastolic 98 mm[Hg] BP frederikc blood pressure, systolic 171 mm[Hg] BP sys [...] weight E&M 417 [lb_av] Weight Measure d Diagnostic Results Date Name Value Unit Range Description Lab Report: CBC, Comp. Metabolic Panel, Thyroid Stimulating Hormone (L), ... - Chemistry sodium, serum 142 mmol/L 392-739 9682/02/27 potassium, serum 4.7 mmol/L 3.5-5.2 chloride, serum [...] mg/g{creat} 0-2 9 cholesterol, serum 168 mg/dL 237-274 2204/02/27 triglyceride, serum, fasting 101 mg/dL 30-200 HDL [...] microalbumin, urine 30 0-19 Lab Report: HGBA1C, HEPATIC PANEL, Lipid Panel, Basic Metabolic Panel - Chemistry hemoglobin A1C, blood, as % of total hemoglobin 6.6 % 4.3-6.0 alkaline phosphatase, serum 84 U/L 50-136 aspartate aminotransferase (SGOT), serum 12 U/L 15-37 alanine aminotransferase (SGPT), serum 22 U/L 12-78 bilirubin, serum, total 0.30 mg/dL 0.00-1.00 cholesterol, serum 140 mg/dL 772-776 4782/11/08 triglyceride, serum, fasting 76 mg/dL 30-200 HDL cholesterol, serum 60 mg/dL 32-96 LDL cholesterol, serum 65 mg/dL 0-130 sodium, serum 143 mmol/L 090-835 4043/11/08 potassium, serum 4.8 mmol/L 3.5-5.2 chloride, serum [...] 1.025 1.000-1.030 pH, urine, semiquantitative 6.0 5.0-8.5 Office Visit: cellulitis - Chemistry cholesterol, target level 200 mg/dL triglyceride, target level 200 mg/dL HDL cholesterol, serum, target level 35 mg/dL LDL target level 100 mg/dL Encounters Code Encounter Date Provider Facility CPT-21898 Level 3 Est. Patient 19:12:03 CDT Yoli tolbert MD PhD [facility] CPT-35426 Level 3 Est. Patient 14:36:01 CDT Yoli tolbert MD [facility]-04477 Level 2 Est. Patient 08:00:22 CDT Jcarlos dc MD [facility]-92034 Level 3 Est. Patient 19:06:55 CDT Bertrand marquez [facility] CPT-40336 Level 3 Est. Patient 10:08:23 CLIENT EVALUATOR Bertrand marqeuz [facility] CPT-65987 Level 3 Est. Patient 16:37:54 CLIENT EVALUATOR Bertrand marquez [facility] CPT-27755 Level 3 Est. Patient 11:31:59 CLIENT EVALUATOR Bertrand marquez [facility] CPT-23106 Level 3 Est. Patient 10:20:08 CDT Adolfo villasenor [facility] CPT-40288 Level 3 Est. Patient 13:45:20 CDT Sanket buckley [facility] CPT-58028 Level 3 Est. Patient 12:51:06 CDT Adolfo villasenor [facility] CPT-37061 Level 3 Est. Patient 11:22:51 CLIENT EVALUATOR Yoli tolbert MD PhD [facility]-56691 Level 3 Est. Patient 13:33:19 CDT Bertrand marquez [facility] Procedures Code Procedure Name Date Entry Date Standard Desc ription CPT-92766 Knee comp 4/> V 11:58:06 CLIENT EVALUATOR
--- OUTSIDE RECORDS SUMMARY | 2019-11-13 10:38 | XMS REPORT | Clinical Summary ---
Author Author Admin, Enrique Adamson Organization [facility] Address Unknown Phone Allergies, Adverse Reactions, Alerts [...] TID PRN for muscle pain CYCLOBENZAPRINE HCL 29462662422 Active Brittni Ventura MOTORIZED SQUAD LIEUTENANT Active AMLODIPINE BESYLATE 5 MG TABS 1 tablet by mouth daily for bl ood pressure AMLODIPINE BESYLATE 98197141953 Active Bertrand Patel DO Active MICARDIS 80 MG TABS 1 tablet daily for blood pressure TELMISARTAN 94890062774 Active Bertrand Patel DO Active MICARDIS HCT 80-12.5 MG TABS 1 qd TELMISARTA N-HCTZ 23134152575 No Longer Active Bertrand Patel DO Active FUROSEMIDE 20 MG TABS take one po PRN FUROSEMIDE 29436923930 Active Bertrand Patel DO Active CINNAMON ALPHA LIPOIC AC CMPLX CAPS by mouth twice a d ay in AM by mouth twice a day in PM ALPHA LIPOIC [id number] CAPS 238352 61888 No Longer Active Bertrand Patel DO Active AZITHROMYCIN 500 MG SOLR 1 po q day AZITHROMYCI N 58332081139 No Longer Active Bertrand Patel DO Active CYMBALTA 30 MG CPEP 1 cap by mouth daily DULOXE CATHI HCL 16192959470 No Longer Active Bertrand Patel DO Active CYMBALTA 60 MG CPEP 1 cap by mouth daily DULOXE CATHI HCL 24264782486 Active Bertrand Patel DO Active WELLBUTRIN 75 MG TABS 2 times daily BUPROPION H CL 34074071854 No Longer Active Bertrand Patel DO Active [facility] MELATONIN 5-10 MG CR-TABS Take one by mouth daily at bedtime 20 15/04/08 MELATONIN-PYRIDOXINE 31825609623 Active Bertrand Patel DO Activ e LORTAB 7.5-500 MG TABS take one po Q6 hours HYDROCODONE-ACETAMINOPHEN 44407667415 Active Bertrand Patel DO Active PROAIR HFA 108 (90 BASE) MCG/ACT AERS take one to two puffs po Q4-6 hour prn cough and shortness of breath ALBUTEROL SULFATE 0277430671 1 Active Adolfo OSORIO Active AZITHROMYCIN 250 MG TABS take 2 po today then take 1 po days 2-5 AZITHROMYCIN 30712272842 No Longer Active Adolfo OSORIO Active VITAMIN E 200 UNIT CAPS 1 cap po qd VITAMIN E 6479673110 5 Active Adolfo OSORIO Active PERMETHRIN 5 % CREA apply neck to toes tonight a nd then rinse off in morning. repeat at 7 days PERMETHRIN 18487788927 No Longer Active Adolfo OSORIO Active AMOXICILLIN 500 MG CAPS 2 po BID x 10 days AMOX ICILLIN 90490891306 No Longer Active Yoli Mercado MD PhD Active ALPRAZOLAM 0.5 MG TAB 1 tab by mouth tid ALPRAZOL AM 49032960381 Active Bertrand Patel DO Active PRAVASTATIN SODIUM 20 MG TABS 1 tablet by mouth daily at bedtime 20 05/12/02 PRAVASTATIN SODIUM 14680591682 Active Bertrand Patel DO Active B-12 1000 MCG CAPS 1 tab daily CYANOCOBALAMIN 3984158 2732 Active Bertrand Patel DO Active INSUPEN ULTRAFIN 31G X 6 MM MISC USE DIRECTED 03/04 INSULIN PEN NEEDLE 51163011582 No Longer Active Bertrand Jacklyn Patel DO Active TRANSDERM-SCOP 1.5 MG PT72 1 patch applied behind ear q 3 day 20 04/13/28 SCOPOLAMINE BASE 98762283638 No Longer Active Bertrand Jacklyn Patel DO Active MACRODANTIN 100 MG CAPS one p.o. b.i.d. x2 weeks 03/04 NITROFURANTOIN MACROCRYSTAL 68231777136 No Longer Active Bertrand Jacklyn Patel DO Active METFORMIN HCL 500 MG TABS 1 bid METFORMIN HCL 91973984 898 Active Bertrand Patel DO Active MACRODANTIN 100 MG CAPS one p.o. b.i.d. x2 weeks 03/04 MACRODANTIN 100 MG CAPS 822784 NITROFURANTOIN MACROCRYSTAL Inactive TRANSDERM-SCOP 1.5 MG PT72 [...] at 7 days PERMETHRIN 5 % CREA 561517 PERMETHRIN Inactive WELLBUTRIN 75 MG TABS 2 times daily WELLBUTRIN 75 MG TABS 626795 BUPROPION HCL Inactive CYMBALTA 30 MG CPEP 1 cap by mouth daily CYMBALTA 30 MG CPEP 733647 DULOXETINE HCL Inactive AZITHROMYCIN 500 MG SOLR 1 po q day ALTA THROMYCIN 500 MG SOLR 371861 AZITHROMYCIN Inactive CINNAMON ALPHA LIPOIC AC CMPLX CAPS by mouth twice a d ay in AM by mouth twice a day in PM CINNAMON ALPHA LIPOIC AC CMPLX CAPS ALPHA LIPOIC [id number] CAPS Inactive MICARDIS HCT 80-12.5 MG TABS 1 qd MICARDI S HCT 80-12.5 MG TABS 749668 TELMISARTAN-HCTZ Inactive AMOXICILLIN 500 MG CAPS 2 po BID x 10 days AMOXICILLIN 500 MG CAPS 068729 AMOXICILLIN Inactive AZITHROMYCIN 250 MG TABS take 2 po today then take 1 po days 2-5 AZITHROMYCIN 250 MG TABS 5446259 AZITHROMYCIN Inactiv e Vital Signs Date Name [...] - Chem istry sodium, serum 144 mmol/L 984-376 9933/06/18 potassium, serum 4.4 mmol/L 3.5-5.2 chloride, serum 101 mmol/L 98-107 carbon dioxide, venous blood 31.0 mmol/L 21.0-32 .0 blood glucose 50 mg/dL 65-110 calcium, serum 8.7 mg/dL 8.5-10.1 urea nitrogen, blood 20 mg/dL 7-18 creatinine, serum 1.00 mg/dL 0.60-1.30 Lab Report: CBC, Comp. Metabolic Panel, Thyroid Stimulating Hormone (L), ... - Chemistry sodium, serum 142 mmol/L 110-419 7004/02/27 potassium, serum 4.7 mmol/L 3.5-5.2 chloride, serum [...] mg/g{creat} 0-2 9 cholesterol, serum 168 mg/dL 184-049 0991/02/27 triglyceride, serum, fasting 101 mg/dL 30-200 HDL [...] 6.3 % 4.3-6.0 sodium, serum 143 mmol/L 866-288 1387/06/10 potassium, serum 5.0 mmol/L 3.5-5.2 chloride, serum [...] 0.30 mg/dL 0.00-1.00 cholesterol, serum 140 mg/dL 030-680 8420/11/08 triglyceride, serum, fasting 76 mg/dL 30-200 HDL cholesterol, serum 60 mg/dL 32-96 LDL cholesterol, serum 65 mg/dL 0-130 sodium, serum 143 mmol/L 825-473 1137/11/08 potassium, serum 4.8 mmol/L 3.5-5.2 chloride, serum [...] 5.0-8.5 Encounters Code Encounter Date Provider Facility CPT-29883 Level 2 Est. Patient 08:00:22 CDT Jcarlos dc MD [facility] CPT-75779 Level 3 Est. Patient 19:06:55 CDT Bertrand marquez [facility] CPT-45018 Level 3 Est. Patient 10:08:23 ADULT NURSE PRACTITIONER Bertrand marquez [facility]-77511 Level 3 Est. Patient 16:37:54 ADULT NURSE PRACTITIONER Bertrand marquez [facility] CPT-58518 Level 3 Est. Patient 11:31:59 ADULT NURSE PRACTITIONER Bertrand marquez [facility] CPT-57146 Level 3 Est. Patient 10:20:08 CDT Adolfo villasenor [facility] CPT-32453 Level 3 Est. Patient 13:45:20 CDT Sanket buckley [facility] CPT-53605 Level 3 Est. Patient 12:51:06 CDT Adolfo villasenor [facility] CPT-18644 Level 3 Est. Patient 11:22:51 ADULT NURSE PRACTITIONER Yoli tolbert MD PhD [facility]-91673 Level 3 Est. Patient 13:33:19 CDT Bertrand marquez [facility] Procedures Code Procedure Name Date Entry Date Standard Desc ription CPT-74270 Knee comp 4/> V 11:58:06 ADULT NURSE PRACTITIONER
--- OUTSIDE RECORDS SUMMARY | 2019-11-13 10:38 | XMS REPORT | Clinical Summary ---
Author Author Admin, Enrique Adamson Organization [facility] Address Unknown Phone Unavailable Allergies, Adverse Reactions, [...] TID PRN for muscle pain CYCLOBENZAPRINE HCL 05799031692 Active Brittni Randall TURN DOWN MAN Active AMLODIPINE BESYLATE 5 MG TABS 1 tablet by mouth daily for bl ood pressure AMLODIPINE BESYLATE 39497862381 Active Bertrand Patel DO Active MICARDIS 80 MG TABS 1 tablet daily for blood pressure TELMISARTAN 76629165496 Active Bertrand Patel DO Active MICARDIS HCT 80-12.5 MG TABS 1 qd TELMISARTA N-HCTZ 68521607695 No Longer Active Bertrand Patel DO Active FUROSEMIDE 20 MG TABS take one po PRN FUROSEMIDE 30057726145 Active Bertrand Patel DO Active CINNAMON ALPHA LIPOIC AC CMPLX CAPS by mouth twice a d ay in AM by mouth twice a day in PM ALPHA LIPOIC [id number] CAPS 399232 86571 No Longer Active Bertrand Patel DO Active AZITHROMYCIN 500 MG SOLR 1 po q day AZITHROMYCI N 31457708705 No Longer Active Bertrand Patel DO Active CYMBALTA 30 MG CPEP 1 cap by mouth daily DULOXE CATHI HCL 10136059030 No Longer Active Bertrand Patel DO Active CYMBALTA 60 MG CPEP 1 cap by mouth daily DULOXE CATHI HCL 21405734143 Active Bertrand Patel DO Active WELLBUTRIN 75 MG TABS 2 times daily BUPROPION H CL 69646367618 No Longer Active Bertrand Patel DO Active [facility] MEL[facility]IN 5-10 MG CR-TABS Take one by mouth daily at bedtime 20 15/04/08 MELATONIN-PYRIDOXINE 24476446743 Active Bertrand Patel DO Activ e LORTAB 7.5-500 MG TABS take one po Q6 hours HYDROCODONE-ACETAMINOPHEN 56776847694 Active Bertrand Patel DO Active PROAIR HFA 108 (90 BASE) MCG/ACT AERS take one to two puffs po Q4-6 hour prn cough and shortness of breath ALBUTEROL SULFATE 8679481783 1 Active Adolfo OSORIO Active AZITHROMYCIN 250 MG TABS take 2 po today then take 1 po days 2-5 AZITHROMYCIN 17565641617 No Longer Active Adolfo OSORIO Active VITAMIN E 200 UNIT CAPS 1 cap po qd VITAMIN E 1594551040 5 Active Adolfo OSORIO Active PERMETHRIN 5 % CREA apply neck to toes tonight a nd then rinse off in morning. repeat at 7 days PERMETHRIN 32812811845 No Longer Active Adolfo OSORIO Active AMOXICILLIN 500 MG CAPS 2 po BID x 10 days AMOX ICILLIN 68284633543 No Longer Active Yoli Mercado MD PhD Active ALPRAZOLAM 0.5 MG TAB 1 tab by mouth tid ALPRAZOL AM 37036183581 Active Bertrand Patel DO Active PRAVASTATIN SODIUM 20 MG TABS 1 tablet by mouth daily at bedtime 20 05/12/02 PRAVASTATIN SODIUM 10594050578 Active Bertrand Patel DO Active B-12 1000 MCG CAPS 1 tab daily CYANOCOBALAMIN 7068751 2732 Active Bertrand Patel DO Active INSUPEN ULTRAFIN 31G X 6 MM MISC USE DIRECTED 03/04 INSULIN PEN NEEDLE 54904917926 No Longer Active Bertrand Patel DO Active TRANSDERM-SCOP 1.5 MG PT72 1 patch applied behind ear q 3 day 20 04/13/28 SCOPOLAMINE BASE 71528694006 No Longer Active Bertrand Patel DO Active MACRODANTIN 100 MG CAPS one p.o. b.i.d. x2 weeks 03/04 NITROFURANTOIN MACROCRYSTAL 13893429723 No Longer Active Bertrand Patel DO Active METFORMIN HCL 500 MG TABS 1 bid METFORMIN HCL 25117524 898 Active Darrian Woods MD Active MACRODANTIN 100 MG CAPS one p.o. b.i.d. x2 weeks 03/04 MACRODANTIN 100 MG CAPS 160059 NITROFURANTOIN MACROCRYSTAL Inactive TRANSDERM-SCOP 1.5 MG PT72 [...] at 7 days PERMETHRIN 5 % CREA 360949 PERMETHRIN Inactive WELLBUTRIN 75 MG TABS 2 times daily WELLBUTRIN 75 MG TABS 537260 BUPROPION HCL Inactive CYMBALTA 30 MG CPEP 1 cap by mouth daily CYMBALTA 30 MG CPEP 309475 DULOXETINE HCL Inactive AZITHROMYCIN 500 MG SOLR 1 po q day ALTA THROMYCIN 500 MG SOLR 846495 AZITHROMYCIN Inactive CINNAMON ALPHA LIPOIC AC CMPLX CAPS by mouth twice a d ay in AM by mouth twice a day in PM CINNAMON ALPHA LIPOIC AC CMPLX CAPS ALPHA LIPOIC [id number]-[id number] CAPS Inactive MICARDIS HCT 80-12.5 MG TABS 1 qd MICARDI S HCT 80-12.5 MG TABS 925857 TELMISARTAN-HCTZ Inactive AMOXICILLIN 500 MG CAPS 2 po BID x 10 days AMOXICILLIN 500 MG CAPS 511598 AMOXICILLIN Inactive AZITHROMYCIN 250 MG TABS take 2 po today then take 1 po days 2-5 AZITHROMYCIN 250 MG TABS 7409399 AZITHROMYCIN Inactiv e Vital Signs Date Name Value Unit Range Description blood pressure, diastolic - 8462-4 92 mm[Hg] [...] - 3141-9 422.50 [lb_av] Weigh t Measured blood pressure, diastolic - 8462-4 84 mm[Hg] BP frederick blood pressure, systolic - 8480-6 148 mm[Hg] BP sys height E&M - 8302-2 65 [in_us] Bdy h eight pulse rate E&M - 8867-4 91 /min H eart rate temperature E&M 98.7 [degF] Body temp erature weight E&M - 3141-9 417 [lb_av] Weigh t Measured blood pressure, diastolic - 8462-4 91 mm[Hg] BP frederick blood pressure, systolic - 8480-6 178 mm[Hg] BP sys height E&M - 8302-2 65 [in_us] Bdy h eight pulse rate E&M - 8867-4 88 /min H eart rate temperature E&M 98.3 [degF] Body temp erature weight E&M - 3141-9 409 [lb_av] Weigh t Measured Diagnostic Results Date Name Value Unit Range Description Lab Report: CBC, Comp. Metabolic Panel, Thyroid Stimulating Hormone (L), ... - Chemistry sodium, serum 142 mmol/L 114-550 8778/02/27 potassium, serum 4.7 mmol/L 3.5-5.2 chloride, serum [...] mg/g{creat} 0-2 9 cholesterol, serum 168 mg/dL 526-118 1517/02/27 triglyceride, serum, fasting 101 mg/dL 30-200 HDL [...] 0.30 mg/dL 0.00-1.00 cholesterol, serum 140 mg/dL 463-657 7684/11/08 triglyceride, serum, fasting 76 mg/dL 30-200 HDL cholesterol, serum 60 mg/dL 32-96 LDL cholesterol, serum 65 mg/dL 0-130 sodium, serum 143 mmol/L 460-605 1250/11/08 potassium, serum 4.8 mmol/L 3.5-5.2 chloride, serum [...] 5.0-8.5 Encounters Code Encounter Date Provider Facility CPT-74600 Level 2 Est. Patient 08:00:22 CDT Jcarlos dc MD [facility] CPT-61426 Level 3 Est. Patient 19:06:55 CDT Bertrand marquez [facility] CPT-85204 Level 3 Est. Patient 10:08:23 SCRIPT WORKER Bertrand marquez [facility]-07021 Level 3 Est. Patient 16:37:54 SCRIPT WORKER Bertrand marquez [facility] CPT-87333 Level 3 Est. Patient 11:31:59 SCRIPT WORKER Bertrand marquez [facility] CPT-72100 Level 3 Est. Patient 10:20:08 CDT Adolfo villasenor [facility] CPT-66136 Level 3 Est. Patient 13:45:20 CDT Sanket buckley [facility] CPT-23361 Level 3 Est. Patient 12:51:06 CDT Adolfo villasenor [facility] CPT-44856 Level 3 Est. Patient 11:22:51 SCRIPT WORKER Yoli tolbert MD PhD [facility] CPT-47547 Level 3 Est. Patient 13:33:19 CDT Bertrand marquez DO [facility] Procedures Code Procedure Name Date Entry Date Standard Desc ription CPT-08437 Knee comp 4/> V 11:58:06 SCRIPT WORKER
--- OUTSIDE RECORDS SUMMARY | 2019-11-13 10:39 | XMS REPORT | Clinical Summary ---
Author Author Admin, Enrique Adamson Organization [facility] Address Unknown Phone Unavailable [...] He adache HEALTH SCREENING ICD-V70.0 Inactive Yoli sabiloln MD PhD SCABIES ICD-133.0 Inactive Yoli Mercado [...] HOURS BY MOUTH NEEDED FOR PAIN HYDROCODONE-ACETAMINOPHEN 89984784821 Acti ve Nirmal Robbins RN Active LORTAB 7.5-500 MG TABS take one po Q6 hours HYDROCODONE-ACETAMINOPHEN No Longer Active Nirmal Robbins RN Active [facility] MELATONIN 5-10 MG CR-TABS Take one by mouth daily at bedtime MELATONIN-PYRIDOXINE 59789382095 No Longer Active Bertrand Patel DO Active VITAMIN E 200 UNIT CAPS 1 cap po qd VITAMIN E 316 71244674 No Longer Active Bertrand Patel DO Active B-12 1000 MCG CAPS 1 tab daily CYANOCOBALAMIN 31 637619413 No Longer Active Bertrand Patel DO Active METFORMIN HCL 500 MG TABS 1 bid METFORMIN HCL 33499988290 No Longer Active Bertrand Patel DO Active FUROSEMIDE 20 MG TABS 1 pill by mouth daily if needed for edema FUROSEMIDE 43596868968 No Longer Active Bertrand Patel DO Act jairo PRAVASTATIN SODIUM 20 MG TABS 1 tablet by mouth daily at bedtime PRAVASTATIN SODIUM 21975957479 No Longer Active Bertrand Patel DO Active AUGMENTIN 875-125 MG TABS 1 pill by mouth twice daily AMOXICILLIN-POT CLAVULANATE 43775007687 No Longer Active Yoli Mercado MD PhD Active LEVAQUIN 500 MG TABS 1 pill by mouth daily LEVO FLOXACIN 99365916779 No Longer Active Yoli Mercado MD PhD Active CYCLOBENZAPRINE HCL 10 MG TABS Take 1 tab TID PRN for muscle pain CYCLOBENZAPRINE HCL 82616679654 Active Brittni Perrin Prakash FOOD HANDLER Active AMLODIPINE BESYLATE 5 MG TABS 1 tablet by mouth daily for bl ood pressure AMLODIPINE BESYLATE 44442752359 Active Bertrand Patel DO Active MICARDIS 80 MG TABS 1 tablet daily for blood pressure TELMISARTAN 04609010671 Active Bertrand Patel DO Active MICARDIS HCT 80-12.5 MG TABS 1 qd TELMISARTA N-HCTZ 40771582834 No Longer Active Bertrand Patel DO Active CINNAMON ALPHA LIPOIC AC CMPLX CAPS by mouth twice a d ay in AM by mouth twice a day in PM ALPHA LIPOIC [id number] CAPS 429452 82545 No Longer Active Bertrand Patel DO Active AZITHROMYCIN 500 MG SOLR 1 po q day AZITHROMYCI N 91900682654 No Longer Active Bertrand Patel DO Active CYMBALTA 30 MG CPEP 1 cap by mouth daily DULOXE CATHI HCL 78385414678 No Longer Active Bertrand Patel DO Active CYMBALTA 60 MG CPEP 1 cap by mouth daily DULOXE CATHI HCL 28495853263 Active Bertrand Patel DO Active WELLBUTRIN 75 MG TABS 2 times daily BUPROPION H CL 71341640608 No Longer Active Bertrand Patel DO Active PROAIR HFA 108 (90 BASE) MCG/ACT AERS take one to two puffs po Q4-6 hour prn cough and shortness of breath ALBUTEROL SULFATE 2849493766 1 Active Adolfo OSORIO Active AZITHROMYCIN 250 MG TABS take 2 po today then take 1 po days 2-5 AZITHROMYCIN 24379253483 No Longer Active Adolfo OSOROI Active PERMETHRIN 5 % CREA apply neck to toes tonight a nd then rinse off in morning. repeat at 7 days PERMETHRIN 41373406390 No Longer Active Adolfo OSORIO Active AMOXICILLIN 500 MG CAPS 2 po BID x 10 days AMOX ICILLIN 79052943664 No Longer Active Yoli Mercado MD PhD Active ALPRAZOLAM 0.5 MG TAB 1 tab by mouth tid ALPRAZOL AM 79349567553 Active Bertrand Patel DO Active INSUPEN ULTRAFIN 31G X 6 MM MISC USE DIRECTED 03/04 INSULIN PEN NEEDLE 39360398225 No Longer Active Bertrand Patel DO Active TRANSDERM-SCOP 1.5 MG PT72 1 patch applied behind ear q 3 day 20 04/13/28 SCOPOLAMINE BASE 07553200590 No Longer Active Bertrand Patel DO Active MACRODANTIN 100 MG CAPS one p.o. b.i.d. x2 weeks 03/04 NITROFURANTOIN MACROCRYSTAL 34264929105 No Longer Active Bertrand Patel DO Active MACRODANTIN 100 MG CAPS one p.o. b.i.d. x2 weeks 03/04 MACRODANTIN 100 MG CAPS 488711 NITROFURANTOIN MACROCRYSTAL Inactive TRANSDERM-SCOP 1.5 MG PT72 [...] at 7 days PERMETHRIN 5 % CREA 492793 PERMETHRIN Inactive WELLBUTRIN 75 MG TABS 2 times daily WELLBUTRIN 75 MG TABS 853426 BUPROPION HCL Inactive CYMBALTA 30 MG CPEP 1 cap by mouth daily CYMBALTA 30 MG CPEP 532036 DULOXETINE HCL Inactive AZITHROMYCIN 500 MG SOLR 1 po q day ALTA THROMYCIN 500 MG SOLR 922565 AZITHROMYCIN Inactive CINNAMON ALPHA LIPOIC AC CMPLX CAPS by mouth twice a d ay in AM by mouth twice a day in PM CINNAMON ALPHA LIPOIC AC CMPLX CAPS ALPHA LIPOIC [id number] CAPS Inactive MICARDIS HCT 80-12.5 MG TABS 1 qd MICARDI S HCT 80-12.5 MG TABS 247312 TELMISARTAN-HCTZ Inactive PRAVASTATIN SODIUM 20 MG TABS 1 tablet by mouth daily at bedtime PRAVASTATIN SODIUM 20 MG TABS 286293 PRAVASTATIN SODIUM Inactive FUROSEMIDE 20 MG TABS 1 pill by mouth daily if needed for edema FUROSEMIDE 20 MG TABS 238908 FUROSEMIDE Inactive METFORMIN HCL 500 MG TABS 1 bid METFORMIN HCL 500 MG TABS 870020 METFORMIN HCL Inactive B-12 1000 MCG CAPS 1 tab daily B-12 1000 MCG CAP S CYANOCOBALAMIN Inactive VITAMIN E 200 UNIT CAPS 1 cap po qd VITAMIN E 2 00 UNIT CAPS 2244999 VITAMIN E Inactive [facility] MELATONIN 5-10 MG CR-TABS Take one by mouth daily at bedtime [facility] MELATONIN 5-10 MG CR-TABS MELATONIN-PYRIDOXI NE Inactive LORTAB 7.5-500 MG TABS take one po Q6 hours LORTAB 7.5-500 MG TABS HYDROCODONE-ACETAMINOPHEN Inactive AMOXICILLIN 500 MG CAPS 2 po BID x 10 days AMOXICILLIN 500 MG CAPS 231090 AMOXICILLIN Inactive AZITHROMYCIN 250 MG TABS take 2 po today then take 1 po days 2-5 AZITHROMYCIN 250 MG TABS 8455720 AZITHROMYCIN Inactiv e LEVAQUIN 500 MG TABS 1 pill by mouth daily LEVAQUIN 500 MG TABS 146770 LEVOFLOXACIN Inactive AUGMENTIN 875-125 MG TABS 1 pill by mouth twice daily AUGMENTIN 875-125 MG TABS 687027 AMOXICILLIN-POT CLAVULANATE Inacti ve Vital Signs Date [...] ... - Chemistry sodium, serum 142 mmol/L 358-369 6809/02/27 potassium, serum 4.7 mmol/L 3.5-5.2 chloride, serum [...] mg/g{creat} 0-2 9 cholesterol, serum 168 mg/dL 660-842 8803/02/27 triglyceride, serum, fasting 101 mg/dL 30-200 HDL [...] CBC - Chemistry sodium, serum 139 mmol/L 066-737 7580/10/31 potassium, serum 4.5 mmol/L 3.5-5.2 chloride, serum [...] mg/dL Encounters Code Encounter Date Provider Facility CPT-93476 Level 3 Est. Patient 12:56:37 CDT Bertrand marquez DO [facility] CPT-56394 Level 3 Est. Patient 19:12:03 CDT Yoli tolbert MD PhD [facility] CPT-57724 Level 3 Est. Patient 14:36:01 CDT Yoli tolbert MD PhD [facility] CPT-35492 Level 2 Est. Patient 08:00:22 CDT Jcarlos dc MD [facility]-47044 Level 3 Est. Patient 19:06:55 CDT Bertrand marquez [facility] CPT-57949 Level 3 Est. Patient 10:08:23 HOME CARE GIVER Bertrand marquez [facility] CPT-13121 Level 3 Est. Patient 16:37:54 HOME CARE GIVER Bertrand marquez [facility] CPT-12490 Level 3 Est. Patient 11:31:59 HOME CARE GIVER Bertrand marquez [facility] CPT-13851 Level 3 Est. Patient 10:20:08 CDT Adolfo villasenor [facility] CPT-40802 Level 3 Est. Patient 13:45:20 CDT Sanket buckley [facility] CPT-07401 Level 3 Est. Patient 12:51:06 CDT Adolfo villasenor [facility] CPT-17563 Level 3 Est. Patient 11:22:51 HOME CARE GIVER Yoli tolbert MD PhD [facility] CPT-40783 Level 3 Est. Patient 13:33:19 CDT Bertrand marquez [facility] Procedures Code Procedure Name Date Entry Date Standard Desc ription CPT-97113 Knee comp 4/> V 11:58:06 HOME CARE GIVER
--- OUTSIDE RECORDS SUMMARY | 2019-11-13 10:39 | XMS REPORT | Clinical Summary ---
Author Author Admin, Enrique Adamson Organization [facility] Address Unknown Phone Unavailable Allergies, Adverse [...] one by mouth daily at bedtime MELATONIN-PYRIDOXINE 92910979988 No Longer Active Bertrand Patel DO Active VITAMIN E 200 UNIT CAPS 1 cap po qd VITAMIN E 316 58688515 No Longer Active Bertrand Patel DO Active B-12 1000 MCG CAPS 1 tab daily CYANOCOBALAMIN 31 534568291 No Longer Active Bertrand Patel DO Active METFORMIN HCL 500 MG TABS 1 bid METFORMIN HCL 42411156916 No Longer Active Bertrand Patel DO Active FUROSEMIDE 20 MG TABS 1 pill by mouth daily if needed for edema FUROSEMIDE 48035799225 No Longer Active Bertrand Patel DO Act jairo PRAVASTATIN SODIUM 20 MG TABS 1 tablet by mouth daily at bedtime PRAVASTATIN SODIUM 37168626106 No Longer Active Bertrand Patel DO Active AUGMENTIN 875-125 MG TABS 1 pill by mouth twice daily AMOXICILLIN-POT CLAVULANATE 46858013513 No Longer Active Yoli Mercado MD PhD Active LEVAQUIN 500 MG TABS 1 pill by mouth daily LEVO FLOXACIN 55381957752 No Longer Active Yoli Mercado MD PhD Active CYCLOBENZAPRINE HCL 10 MG TABS Take 1 tab TID PRN for muscle pain CYCLOBENZAPRINE HCL 81965357426 Active Brittni Fernándezum DIGITAL ASSET SPECIALIST Active AMLODIPINE BESYLATE 5 MG TABS 1 tablet by mouth daily for bl ood pressure AMLODIPINE BESYLATE 61890460091 Active Yoli Mercado MD P hD Active MICARDIS 80 MG TABS 1 tablet daily for blood pressure TELMISARTAN 01173464127 Active Bertrand Patel DO Active MICARDIS HCT 80-12.5 MG TABS 1 qd TELMISARTA N-HCTZ 69881741200 No Longer Active Bertrand Patel DO Active CINNAMON ALPHA LIPOIC AC CMPLX CAPS by mouth twice a d ay in AM by mouth twice a day in PM ALPHA LIPOIC [id number] CAPS 044648 71041 No Longer Active Bertrand Patel DO Active AZITHROMYCIN 500 MG SOLR 1 po q day AZITHROMYCI N 23854679676 No Longer Active Bertrand Patel DO Active CYMBALTA 30 MG CPEP 1 cap by mouth daily DULOXE CATHI HCL 69470025874 No Longer Active Bertrand Patel DO Active CYMBALTA 60 MG CPEP 1 cap by mouth daily DULOXE CATHI HCL 54620747253 Active Bertrand Patel DO Active WELLBUTRIN 75 MG TABS 2 times daily BUPROPION H CL 77050751394 No Longer Active Bertrand Patel DO Active LORTAB 7.5-500 MG TABS take one po Q6 hours HYDROCODONE-ACETAMINOPHEN Active Bertrand Patel DO Active PROAIR HFA 108 (90 BASE) MCG/ACT AERS take one to two puffs po Q4-6 hour prn cough and shortness of breath ALBUTEROL SULFATE 2052110930 1 Active Adolfo OSORIO Active AZITHROMYCIN 250 MG TABS take 2 po today then take 1 po days 2-5 AZITHROMYCIN 40492456591 No Longer Active Adolfo OSORIO Active PERMETHRIN 5 % CREA apply neck to toes tonight a nd then rinse off in morning. repeat at 7 days PERMETHRIN 32422499781 No Longer Active Adolfo OSORIO Active AMOXICILLIN 500 MG CAPS 2 po BID x 10 days AMOX ICILLIN 57599082391 No Longer Active Yoli Mercado MD PhD Active ALPRAZOLAM 0.5 MG TAB 1 tab by mouth tid ALPRAZOL AM 24352852738 Active Bertrand Patel DO Active INSUPEN ULTRAFIN 31G X 6 MM MISC USE DIRECTED 03/04 INSULIN PEN NEEDLE 39398772328 No Longer Active Bertrand Patel DO Active TRANSDERM-SCOP 1.5 MG PT72 1 patch applied behind ear q 3 day 20 04/13/28 SCOPOLAMINE BASE 99300240739 No Longer Active Bertrand Patel DO Active MACRODANTIN 100 MG CAPS one p.o. b.i.d. x2 weeks 03/04 NITROFURANTOIN MACROCRYSTAL 66666169376 No Longer Active Bertrand Patel DO Active MACRODANTIN 100 MG CAPS one p.o. b.i.d. x2 weeks 03/04 MACRODANTIN 100 MG CAPS 462050 NITROFURANTOIN MACROCRYSTAL Inactive TRANSDERM-SCOP 1.5 MG PT72 [...] at 7 days PERMETHRIN 5 % CREA 220661 PERMETHRIN Inactive WELLBUTRIN 75 MG TABS 2 times daily WELLBUTRIN 75 MG TABS 504294 BUPROPION HCL Inactive CYMBALTA 30 MG CPEP 1 cap by mouth daily CYMBALTA 30 MG CPEP 210449 DULOXETINE HCL Inactive AZITHROMYCIN 500 MG SOLR 1 po q day ALTA THROMYCIN 500 MG SOLR 059437 AZITHROMYCIN Inactive CINNAMON ALPHA LIPOIC AC CMPLX CAPS by mouth twice a d ay in AM by mouth twice a day in PM CINNAMON ALPHA LIPOIC AC CMPLX CAPS ALPHA LIPOIC [id number] CAPS Inactive MICARDIS HCT 80-12.5 MG TABS 1 qd MICARDI S HCT 80-12.5 MG TABS 512624 TELMISARTAN-HCTZ Inactive PRAVASTATIN SODIUM 20 MG TABS 1 tablet by mouth daily at bedtime PRAVASTATIN SODIUM 20 MG TABS 652978 PRAVASTATIN SODIUM Inactive FUROSEMIDE 20 MG TABS 1 pill by mouth daily if needed for edema FUROSEMIDE 20 MG TABS 681727 FUROSEMIDE Inactive METFORMIN HCL 500 MG TABS 1 bid METFORMIN HCL 500 MG TABS 510225 METFORMIN HCL Inactive B-12 1000 MCG CAPS 1 tab daily B-12 1000 MCG CAP S CYANOCOBALAMIN Inactive VITAMIN E 200 UNIT CAPS 1 cap po qd VITAMIN E 2 00 UNIT CAPS 6678499 VITAMIN E Inactive [facility] MELATONIN 5-10 MG CR-TABS Take one by mouth daily at bedtime [facility] MELATONIN 5-10 MG CR-TABS MELATONIN-PYRIDOXI NE Inactive AMOXICILLIN 500 MG CAPS 2 po BID x 10 days AMOXICILLIN 500 MG CAPS 630406 AMOXICILLIN Inactive AZITHROMYCIN 250 MG TABS take 2 po today then take 1 po days 2-5 AZITHROMYCIN 250 MG TABS 0982461 AZITHROMYCIN Inactiv e LEVAQUIN 500 MG TABS 1 pill by mouth daily LEVAQUIN 500 MG TABS 615331 LEVOFLOXACIN Inactive AUGMENTIN 875-125 MG TABS 1 pill by mouth twice daily AUGMENTIN 875-125 MG TABS 716453 AMOXICILLIN-POT CLAVULANATE Inacti ve Vital Signs Date [...] d blood pressure, diastolic 92 mm[Hg] BP frederick [...] ... - Chemistry sodium, serum 142 mmol/L 842-144 4059/02/27 potassium, serum 4.7 mmol/L 3.5-5.2 chloride, serum [...] mg/g{creat} 0-2 9 cholesterol, serum 168 mg/dL 674-581 2361/02/27 triglyceride, serum, fasting 101 mg/dL 30-200 HDL [...] CBC - Chemistry sodium, serum 139 mmol/L 903-338 2235/10/31 potassium, serum 4.5 mmol/L 3.5-5.2 chloride, serum [...] count 346 10^3/MM^3 10*3/mm3 142-424 Lab Report: HGBA1C, HEPATIC PANEL, Lipid Panel, Basic Metabolic Panel - Chemistry hemoglobin A1C, blood, as % of total hemoglobin 6.6 % 4.3-6.0 alkaline phosphatase, serum 84 U/L 50-136 aspartate aminotransferase (SGOT), serum 12 U/L 15-37 alanine aminotransferase (SGPT), serum 22 U/L 12-78 bilirubin, serum, total 0.30 mg/dL 0.00-1.00 cholesterol, serum 140 mg/dL 711-314 7968/11/08 triglyceride, serum, fasting 76 mg/dL 30-200 HDL cholesterol, serum 60 mg/dL 32-96 LDL cholesterol, serum 65 mg/dL 0-130 sodium, serum 143 mmol/L 556-237 9894/11/08 potassium, serum 4.8 mmol/L 3.5-5.2 chloride, serum [...] mg/dL Encounters Code Encounter Date Provider Facility CPT-70386 Level 3 Est. Patient 12:56:37 CDT Bertrand marquez DO [facility] CPT-13388 Level 3 Est. Patient 19:12:03 CDT Yoli tolbert MD [facility] CPT-34489 Level 3 Est. Patient 14:36:01 CDT Yoli tolbert MD PhD [facility] CPT-30190 Level 2 Est. Patient 08:00:22 CDT Jcarlos dc MD [facility]-91005 Level 3 Est. Patient 19:06:55 CDT Bertrand marquez [facility] CPT-39886 Level 3 Est. Patient 10:08:23 WIG DRESSER Bertrand marquez [facility] CPT-46334 Level 3 Est. Patient 16:37:54 WIG DRESSER Bertrand marquez [facility] CPT-86971 Level 3 Est. Patient 11:31:59 WIG DRESSER Bertrand marquez [facility] CPT-24858 Level 3 Est. Patient 10:20:08 CDT Adolfo villasenor [facility] CPT-34506 Level 3 Est. Patient 13:45:20 CDT Sanket buckley [facility] CPT-93122 Level 3 Est. Patient 12:51:06 CDT Adolfo villasenor [facility] CPT-21440 Level 3 Est. Patient 11:22:51 WIG DRESSER Yoli tolbert MD [facility]-20157 Level 3 Est. Patient 13:33:19 CDT Bertrand marquez [facility] Procedures Code Procedure Name Date Entry Date Standard Desc ription CPT-19252 Knee comp 4/> V 11:58:06 WIG DRESSER
--- OUTSIDE RECORDS SUMMARY | 2019-11-13 10:39 | XMS REPORT | Clinical Summary ---
[...] one by mouth daily at bedtime MELATONIN-PYRIDOXINE 78500209551 No Longer Active Bertrand Patel DO Active VITAMIN E 200 UNIT CAPS 1 cap po qd VITAMIN E 316 59544863 No Longer Active Bertrand Patel DO Active B-12 1000 MCG CAPS 1 tab daily CYANOCOBALAMIN 31 979512416 No Longer Active Bertrand Patel DO Active METFORMIN HCL 500 MG TABS 1 bid METFORMIN HCL 12863960951 No Longer Active Bertrand Patel DO Active FUROSEMIDE 20 MG TABS 1 pill by mouth daily if needed for edema FUROSEMIDE 68411818912 No Longer Active Bertrand Patel DO Act jairo PRAVASTATIN SODIUM 20 MG TABS 1 tablet by mouth daily at bedtime PRAVASTATIN SODIUM 27633038653 No Longer Active Bertrand Patel DO Active AUGMENTIN 875-125 MG TABS 1 pill by mouth twice daily AMOXICILLIN-POT CLAVULANATE 79199822059 No Longer Active Yoli Mercado MD PhD Active LEVAQUIN 500 MG TABS 1 pill by mouth daily LEVO FLOXACIN 57079376733 No Longer Active Yoli Mercado MD PhD Active CYCLOBENZAPRINE HCL 10 MG TABS Take 1 tab TID PRN for muscle pain CYCLOBENZAPRINE HCL 45555868567 Active Brittni Fernándezum BIOLOGICAL TECHNICAL OFFICER Active AMLODIPINE BESYLATE 5 MG TABS 1 tablet by mouth daily for bl ood pressure AMLODIPINE BESYLATE 05273602115 Active Yoli Mercado MD P hD Active MICARDIS 80 MG TABS 1 tablet daily for blood pressure TELMISARTAN 82500837436 Active Bertrand Patel DO Active MICARDIS HCT 80-12.5 MG TABS 1 qd TELMISARTA N-HCTZ 76410532029 No Longer Active Bertrand Patel DO Active CINNAMON ALPHA LIPOIC AC CMPLX CAPS by mouth twice a d ay in AM by mouth twice a day in PM ALPHA LIPOIC [id number] CAPS 142727 46465 No Longer Active Bertrand Patel DO Active AZITHROMYCIN 500 MG SOLR 1 po q day AZITHROMYCI N 91440447619 No Longer Active Bertrand Patel DO Active CYMBALTA 30 MG CPEP 1 cap by mouth daily DULOXE CATHI HCL 95668088687 No Longer Active Bertrand Patel DO Active CYMBALTA 60 MG CPEP 1 cap by mouth daily DULOXE CATHI HCL 50963950138 Active Bertrand Patel DO Active WELLBUTRIN 75 MG TABS 2 times daily BUPROPION H CL 83870246288 No Longer Active Bertrand Patel DO Active LORTAB 7.5-500 MG TABS take one po Q6 hours HYDROCODONE-ACETAMINOPHEN Active Bertrand Patel DO Active PROAIR HFA 108 (90 BASE) MCG/ACT AERS take one to two puffs po Q4-6 hour prn cough and shortness of breath ALBUTEROL SULFATE 9498179968 1 Active Adolfo OSORIO Active AZITHROMYCIN 250 MG TABS take 2 po today then take 1 po days 2-5 AZITHROMYCIN 27544438400 No Longer Active Adolfo OSORIO Active PERMETHRIN 5 % CREA apply neck to toes tonight a nd then rinse off in morning. repeat at 7 days PERMETHRIN 50794957623 No Longer Active Adolfo OSORIO Active AMOXICILLIN 500 MG CAPS 2 po BID x 10 days AMOX ICILLIN 23359119293 No Longer Active Yoli Mercado MD PhD Active ALPRAZOLAM 0.5 MG TAB 1 tab by mouth tid ALPRAZOL AM 31384333265 Active Bertrand Patel DO Active INSUPEN ULTRAFIN 31G X 6 MM MISC USE DIRECTED 03/04 INSULIN PEN NEEDLE 68379415007 No Longer Active Bertrand Patel DO Active TRANSDERM-SCOP 1.5 MG PT72 1 patch applied behind ear q 3 day 20 04/13/28 SCOPOLAMINE BASE 56256212284 No Longer Active Bertrand Patel DO Active MACRODANTIN 100 MG CAPS one p.o. b.i.d. x2 weeks 03/04 NITROFURANTOIN MACROCRYSTAL 80509405855 No Longer Active Bertrand Patel DO Active MACRODANTIN 100 MG CAPS one p.o. b.i.d. x2 weeks 03/04 MACRODANTIN 100 MG CAPS 277458 NITROFURANTOIN MACROCRYSTAL Inactive TRANSDERM-SCOP 1.5 MG PT72 [...] at 7 days PERMETHRIN 5 % CREA 347522 PERMETHRIN Inactive WELLBUTRIN 75 MG TABS 2 times daily WELLBUTRIN 75 MG TABS 836377 BUPROPION HCL Inactive CYMBALTA 30 MG CPEP 1 cap by mouth daily CYMBALTA 30 MG CPEP 078693 DULOXETINE HCL Inactive AZITHROMYCIN 500 MG SOLR 1 po q day ALTA THROMYCIN 500 MG SOLR 311280 AZITHROMYCIN Inactive CINNAMON ALPHA LIPOIC AC CMPLX CAPS by mouth twice a d ay in AM by mouth twice a day in PM CINNAMON ALPHA LIPOIC AC CMPLX CAPS ALPHA LIPOIC [id number] CAPS Inactive MICARDIS HCT 80-12.5 MG TABS 1 qd MICARDI S HCT 80-12.5 MG TABS 799279 TELMISARTAN-HCTZ Inactive PRAVASTATIN SODIUM 20 MG TABS 1 tablet by mouth daily at bedtime PRAVASTATIN SODIUM 20 MG TABS 421652 PRAVASTATIN SODIUM Inactive FUROSEMIDE 20 MG TABS 1 pill by mouth daily if needed for edema FUROSEMIDE 20 MG TABS 595277 FUROSEMIDE Inactive METFORMIN HCL 500 MG TABS 1 bid METFORMIN HCL 500 MG TABS 984122 METFORMIN HCL Inactive B-12 1000 MCG CAPS 1 tab daily B-12 1000 MCG CAP S CYANOCOBALAMIN Inactive VITAMIN E 200 UNIT CAPS 1 cap po qd VITAMIN E 2 00 UNIT CAPS 1273372 VITAMIN E Inactive [facility] MELATONIN 5-10 MG CR-TABS Take one by mouth daily at bedtime [facility] MELATONIN 5-10 MG CR-TABS MELATONIN-PYRIDOXI NE Inactive AMOXICILLIN 500 MG CAPS 2 po BID x 10 days AMOXICILLIN 500 MG CAPS 064361 AMOXICILLIN Inactive AZITHROMYCIN 250 MG TABS take 2 po today then take 1 po days 2-5 AZITHROMYCIN 250 MG TABS 0912040 AZITHROMYCIN Inactiv e LEVAQUIN 500 MG TABS 1 pill by mouth daily LEVAQUIN 500 MG TABS 894651 LEVOFLOXACIN Inactive AUGMENTIN 875-125 MG TABS 1 pill by mouth twice daily AUGMENTIN 875-125 MG TABS 295071 AMOXICILLIN-POT CLAVULANATE Inacti ve Vital Signs Date [...] ... - Chemistry sodium, serum 142 mmol/L 515-723 8107/02/27 potassium, serum 4.7 mmol/L 3.5-5.2 chloride, serum [...] mg/g{creat} 0-2 9 cholesterol, serum 168 mg/dL 057-254 7249/02/27 triglyceride, serum, fasting 101 mg/dL 30-200 HDL [...] CBC - Chemistry sodium, serum 139 mmol/L 206-733 5470/10/31 potassium, serum 4.5 mmol/L 3.5-5.2 chloride, serum [...] 0.30 mg/dL 0.00-1.00 cholesterol, serum 140 mg/dL 010-606 7471/11/08 triglyceride, serum, fasting 76 mg/dL 30-200 HDL cholesterol, serum 60 mg/dL 32-96 LDL cholesterol, serum 65 mg/dL 0-130 sodium, serum 143 mmol/L 862-072 7641/11/08 potassium, serum 4.8 mmol/L 3.5-5.2 chloride, serum [...] mg/dL Encounters Code Encounter Date Provider Facility CPT-23185 Level 3 Est. Patient 12:56:37 CDT Bertrand marquez DO [facility] CPT-43118 Level 3 Est. Patient 19:12:03 CDT Yoli tolbert MD [facility] CPT-39456 Level 3 Est. Patient 14:36:01 CDT Yoli tolbert MD PhD [facility] CPT-80349 Level 2 Est. Patient 08:00:22 CDT Jcarlos dc MD [facility]-27567 Level 3 Est. Patient 19:06:55 CDT Bertrand marquez [facility] CPT-16837 Level 3 Est. Patient 10:08:23 HAMMER HEATER Bertrand marquez [facility] CPT-36862 Level 3 Est. Patient 16:37:54 HAMMER HEATER Bertrand marquez [facility] CPT-58762 Level 3 Est. Patient 11:31:59 HAMMER HEATER Bertrand marquez [facility] CPT-62675 Level 3 Est. Patient 10:20:08 CDT Adolfo villasenor [facility] CPT-92819 Level 3 Est. Patient 13:45:20 CDT Sanket buckley [facility] CPT-88322 Level 3 Est. Patient 12:51:06 CDT Adolfo villasenor [facility] CPT-99879 Level 3 Est. Patient 11:22:51 HAMMER HEATER Yoli tolbert MD [facility] CPT-12916 Level 3 Est. Patient 13:33:19 CDT Bertrand marquez [facility] Procedures Code Procedure Name Date Entry Date Standard Desc ription CPT-63156 Knee comp 4/> V 11:58:06 HAMMER HEATER
--- OUTSIDE RECORDS SUMMARY | 2019-11-13 10:39 | XMS REPORT | Clinical Summary ---
Author Author Admin, Enrique Adamson Organization [facility] Address Unknown Phone Unavailable Allergies, Adverse [...] in ear Obstructive sleep apnea 327.23 Active Berrtand Redmond DO Obstructive sleep apnea (adult) (pediatric) [...] one by mouth daily at bedtime MELATONIN-PYRIDOXINE 52642683245 No Longer Active Bertrand Patel DO Active VITAMIN E 200 UNIT CAPS 1 cap po qd VITAMIN E 316 86120638 No Longer Active Bertrand Patel DO Active B-12 1000 MCG CAPS 1 tab daily CYANOCOBALAMIN 31 191104285 No Longer Active Bertrand Patel DO Active METFORMIN HCL 500 MG TABS 1 bid METFORMIN HCL 11993110398 No Longer Active Bertrand Patel DO Active FUROSEMIDE 20 MG TABS 1 pill by mouth daily if needed for edema FUROSEMIDE 25960465929 No Longer Active Bertrand Patel DO Act jairo PRAVASTATIN SODIUM 20 MG TABS 1 tablet by mouth daily at bedtime PRAVASTATIN SODIUM 89010039441 No Longer Active Bertrand Patel DO Active AUGMENTIN 875-125 MG TABS 1 pill by mouth twice daily AMOXICILLIN-POT CLAVULANATE 85065527129 No Longer Active Yoli Mercado MD PhD Active LEVAQUIN 500 MG TABS 1 pill by mouth daily LEVO FLOXACIN 16796880548 No Longer Active Yoli Mercado MD PhD Active CYCLOBENZAPRINE HCL 10 MG TABS Take 1 tab TID PRN for muscle pain CYCLOBENZAPRINE HCL 65309114492 Active Brittni Randall SPECIAL SYSTEMS TECHNICIAN Active AMLODIPINE BESYLATE 5 MG TABS 1 tablet by mouth daily for bl ood pressure AMLODIPINE BESYLATE 03641788019 Active Yoli Polk hD Active MICARDIS 80 MG TABS 1 tablet daily for blood pressure TELMISARTAN 65790829738 Active Bertrand Patel DO Active MICARDIS HCT 80-12.5 MG TABS 1 qd TELMISARTA N-HCTZ 25516724387 No Longer Active Bertrand Patel DO Active CINNAMON ALPHA LIPOIC AC CMPLX CAPS by mouth twice a d ay in AM by mouth twice a day in PM ALPHA LIPOIC [id number] CAPS 188321 04338 No Longer Active Bertrand Patel DO Active AZITHROMYCIN 500 MG SOLR 1 po q day AZITHROMYCI N 98663342217 No Longer Active Bertrand Patel DO Active CYMBALTA 30 MG CPEP 1 cap by mouth daily DULOXE CATHI HCL 72308793699 No Longer Active Bertrand Patel DO Active CYMBALTA 60 MG CPEP 1 cap by mouth daily DULOXE CATHI HCL 10805566339 Active Bertrand Patel DO Active WELLBUTRIN 75 MG TABS 2 times daily BUPROPION H CL 96695937770 No Longer Active Bertrand Patel DO Active LORTAB 7.5-500 MG TABS take one po Q6 hours HYDROCODONE-ACETAMINOPHEN Active Bertrand Patel DO Active PROAIR HFA 108 (90 BASE) MCG/ACT AERS take one to two puffs po Q4-6 hour prn cough and shortness of breath ALBUTEROL SULFATE 4321774757 1 Active Adolfo OSORIO Active AZITHROMYCIN 250 MG TABS take 2 po today then take 1 po days 2-5 AZITHROMYCIN 77247261758 No Longer Active Adolfo OSORIO Active PERMETHRIN 5 % CREA apply neck to toes tonight a nd then rinse off in morning. repeat at 7 days PERMETHRIN 14581015940 No Longer Active Adolfo OSORIO Active AMOXICILLIN 500 MG CAPS 2 po BID x 10 days AMOX ICILLIN 69027475824 No Longer Active Yoli Mercado MD PhD Active ALPRAZOLAM 0.5 MG TAB 1 tab by mouth tid ALPRAZOL AM 80678094822 Active Bertrand Patel DO Active INSUPEN ULTRAFIN 31G X 6 MM MISC USE DIRECTED 03/04 INSULIN PEN NEEDLE 07655513939 No Longer Active Bertrand Patel DO Active TRANSDERM-SCOP 1.5 MG PT72 1 patch applied behind ear q 3 day 20 04/13/28 SCOPOLAMINE BASE 37199054156 No Longer Active Bertrand Patel DO Active MACRODANTIN 100 MG CAPS one p.o. b.i.d. x2 weeks 03/04 NITROFURANTOIN MACROCRYSTAL 22924960785 No Longer Active Bertrand Patel DO Active MACRODANTIN 100 MG CAPS one p.o. b.i.d. x2 weeks 03/04 MACRODANTIN 100 MG CAPS 226723 NITROFURANTOIN MACROCRYSTAL Inactive TRANSDERM-SCOP 1.5 MG PT72 [...] at 7 days PERMETHRIN 5 % CREA 718485 PERMETHRIN Inactive WELLBUTRIN 75 MG TABS 2 times daily WELLBUTRIN 75 MG TABS 719069 BUPROPION HCL Inactive CYMBALTA 30 MG CPEP 1 cap by mouth daily CYMBALTA 30 MG CPEP 877106 DULOXETINE HCL Inactive AZITHROMYCIN 500 MG SOLR 1 po q day ALTA THROMYCIN 500 MG SOLR 774483 AZITHROMYCIN Inactive CINNAMON ALPHA LIPOIC AC CMPLX CAPS by mouth twice a d ay in AM by mouth twice a day in PM CINNAMON ALPHA LIPOIC AC CMPLX CAPS ALPHA LIPOIC ARAP-NP-EDAOUSBG CAPS Inactive MICARDIS HCT 80-12.5 MG TABS 1 qd MICARDI S HCT 80-12.5 MG TABS 025947 TELMISARTAN-HCTZ Inactive PRAVASTATIN SODIUM 20 MG TABS 1 tablet by mouth daily at bedtime PRAVASTATIN SODIUM 20 MG TABS 328654 PRAVASTATIN SODIUM Inactive FUROSEMIDE 20 MG TABS 1 pill by mouth daily if needed for edema FUROSEMIDE 20 MG TABS 846764 FUROSEMIDE Inactive METFORMIN HCL 500 MG TABS 1 bid METFORMIN HCL 500 MG TABS 155644 METFORMIN HCL Inactive B-12 1000 MCG CAPS 1 tab daily B-12 1000 MCG CAP S CYANOCOBALAMIN Inactive VITAMIN E 200 UNIT CAPS 1 cap po qd VITAMIN E 2 00 UNIT CAPS 9111305 VITAMIN E Inactive [facility] MELATONIN 5-10 MG CR-TABS Take one by mouth daily at bedtime [facility] MELATONIN 5-10 MG CR-TABS MELATONIN-PYRIDOXI NE Inactive AMOXICILLIN 500 MG CAPS 2 po BID x 10 days AMOXICILLIN 500 MG CAPS 853973 AMOXICILLIN Inactive AZITHROMYCIN 250 MG TABS take 2 po today then take 1 po days 2-5 AZITHROMYCIN 250 MG TABS 5232436 AZITHROMYCIN Inactiv e LEVAQUIN 500 MG TABS 1 pill by mouth daily LEVAQUIN 500 MG TABS 001072 LEVOFLOXACIN Inactive AUGMENTIN 875-125 MG TABS 1 pill by mouth twice daily AUGMENTIN 875-125 MG TABS 885012 AMOXICILLIN-POT CLAVULANATE Inacti ve Vital Signs Date Name Value Unit Range Description blood pressure, diastolic 99 mm[Hg] BP [place] blood pressure, systolic 158 mm[Hg] BP sys pulse rate E&M 77 /min Heart rate temperature E&M 97.8 [degF] Body temp erature weight E&M 375 [lb_av] Weight Measure d blood pressure, diastolic 74 mm[Hg] BP frederick [...] ... - Chemistry sodium, serum 142 mmol/L 032-239 4998/02/27 potassium, serum 4.7 mmol/L 3.5-5.2 chloride, serum [...] mg/g{creat} 0-2 9 cholesterol, serum 168 mg/dL 740-821 7608/02/27 triglyceride, serum, fasting 101 mg/dL 30-200 HDL [...] CBC - Chemistry sodium, serum 139 mmol/L 195-385 0027/10/31 potassium, serum 4.5 mmol/L 3.5-5.2 chloride, serum [...] 0.30 mg/dL 0.00-1.00 cholesterol, serum 140 mg/dL 446-512 9881/11/08 triglyceride, serum, fasting 76 mg/dL 30-200 HDL cholesterol, serum 60 mg/dL 32-96 LDL cholesterol, serum 65 mg/dL 0-130 sodium, serum 143 mmol/L 878-571 1661/11/08 potassium, serum 4.8 mmol/L 3.5-5.2 chloride, serum [...] mg/dL Encounters Code Encounter Date Provider Facility CPT-12268 Level 3 Est. Patient 12:56:37 CDT Bertrand marquez [facility] CPT-54771 Level 3 Est. Patient 19:12:03 CDT Yoli tolbert MD [facility] CPT-03003 Level 3 Est. Patient 14:36:01 CDT Yoli tolbert MD [facility]-17886 Level 2 Est. Patient 08:00:22 CDT Jcarlos dc MD [facility]-79533 Level 3 Est. Patient 19:06:55 CDT Bertrand marquez [facility] CPT-38893 Level 3 Est. Patient 10:08:23 WOOD REPATCHER Bertrand marquez [facility] CPT-85000 Level 3 Est. Patient 16:37:54 WOOD REPATCHER Bertrand marquez [facility] CPT-33403 Level 3 Est. Patient 11:31:59 WOOD REPATCHER Bertrand marquez [facility] CPT-64681 Level 3 Est. Patient 10:20:08 CDT Adolfo villasenor [facility] CPT-33803 Level 3 Est. Patient 13:45:20 CDT Sanket buckley [facility] CPT-05246 Level 3 Est. Patient 12:51:06 CDT Adolfo villasenor [facility] CPT-20540 Level 3 Est. Patient 11:22:51 WOOD REPATCHER Yoli tolbert MD [facility]93765 Level 3 Est. Patient 13:33:19 CDT Bertrand marquez [facility] Procedures Code Procedure Name Date Entry Date Standard Desc ription CPT-34945 Knee comp 4/> V 11:58:06 WOOD REPATCHER
--- OUTSIDE RECORDS SUMMARY | 2019-11-13 10:40 | XMS REPORT | Clinical Summary ---
Author Author Admin, Enrique Adamson Organization [facility] Address Unknown Phone Unavailable Allergies, Adverse [...] TID PRN for muscle pain CYCLOBENZAPRINE HCL 91313783565 Active Brittni Randall VIRTUALIZATION ARCHITECT Active AMLODIPINE BESYLATE 5 MG TABS 1 tablet by mouth daily for bl ood pressure AMLODIPINE BESYLATE 59758771988 Active Bertrand Patel DO Active MICARDIS 80 MG TABS 1 tablet daily for blood pressure TELMISARTAN 24501483142 Active Bertrand Patel DO Active MICARDIS HCT 80-12.5 MG TABS 1 qd TELMISARTA N-HCTZ 38265850326 No Longer Active Bertrand Patel DO Active FUROSEMIDE 20 MG TABS take one po PRN FUROSEMIDE 29125776717 Active Bertrand Patel DO Active CINNAMON ALPHA LIPOIC AC CMPLX CAPS by mouth twice a d ay in AM by mouth twice a day in PM ALPHA LIPOIC [id number] CAPS 629833 93312 No Longer Active Bertrand Patel DO Active AZITHROMYCIN 500 MG SOLR 1 po q day AZITHROMYCI N 96736711616 No Longer Active Bertrand Patel DO Active CYMBALTA 30 MG CPEP 1 cap by mouth daily DULOXE CATHI HCL 39949517161 No Longer Active Bertrand Patel DO Active CYMBALTA 60 MG CPEP 1 cap by mouth daily DULOXE CATHI HCL 42116462893 Active Bertrand Patel DO Active WELLBUTRIN 75 MG TABS 2 times daily BUPROPION H CL 13050387776 No Longer Active Bertrand Patel DO Active [facility] MELATONIN 5-10 MG CR-TABS Take one by mouth daily at bedtime 20 15/04/08 MELATONIN-PYRIDOXINE 29431920002 Active Bertrand Patel DO Activ e LORTAB 7.5-500 MG TABS take one po Q6 hours HYDROCODONE-ACETAMINOPHEN 46283951022 Active Bertrand Patel DO Active PROAIR HFA 108 (90 BASE) MCG/ACT AERS take one to two puffs po Q4-6 hour prn cough and shortness of breath ALBUTEROL SULFATE 5834308826 1 Active Adolfo OSORIO Active AZITHROMYCIN 250 MG TABS take 2 po today then take 1 po days 2-5 AZITHROMYCIN 89114214632 No Longer Active Adolfo OSORIO Active VITAMIN E 200 UNIT CAPS 1 cap po qd VITAMIN E 5749049189 5 Active Adolfo OSORIO Active PERMETHRIN 5 % CREA apply neck to toes tonight a nd then rinse off in morning. repeat at 7 days PERMETHRIN 93580072005 No Longer Active Adolfo OSORIO Active AMOXICILLIN 500 MG CAPS 2 po BID x 10 days AMOX ICILLIN 51173914133 No Longer Active Yoli Mercado MD PhD Active ALPRAZOLAM 0.5 MG TAB 1 tab by mouth tid ALPRAZOL AM 58393114952 Active Bertrand Patel DO Active PRAVASTATIN SODIUM 20 MG TABS 1 tablet by mouth daily at bedtime 20 05/12/02 PRAVASTATIN SODIUM 30636806186 Active Bertrand Patel DO Active B-12 1000 MCG CAPS 1 tab daily CYANOCOBALAMIN 5002739 2732 Active Bertrand Patel DO Active INSUPEN ULTRAFIN 31G X 6 MM MISC USE DIRECTED 03/04 INSULIN PEN NEEDLE 14383581803 No Longer Active Bertrand Patel DO Active TRANSDERM-SCOP 1.5 MG PT72 1 patch applied behind ear q 3 day 20 04/13/28 SCOPOLAMINE BASE 44374320176 No Longer Active Bertrand Patel DO Active MACRODANTIN 100 MG CAPS one p.o. b.i.d. x2 weeks 03/04 NITROFURANTOIN MACROCRYSTAL 05959325713 No Longer Active Bertrand Patel DO Active METFORMIN HCL 500 MG TABS 1 bid METFORMIN HCL 63805568 898 Active Bertrand Patel DO Active MACRODANTIN 100 MG CAPS one p.o. b.i.d. x2 weeks 03/04 MACRODANTIN 100 MG CAPS 201484 NITROFURANTOIN MACROCRYSTAL Inactive TRANSDERM-SCOP 1.5 MG PT72 [...] at 7 days PERMETHRIN 5 % CREA 134743 PERMETHRIN Inactive WELLBUTRIN 75 MG TABS 2 times daily WELLBUTRIN 75 MG TABS 272233 BUPROPION HCL Inactive CYMBALTA 30 MG CPEP 1 cap by mouth daily CYMBALTA 30 MG CPEP 854209 DULOXETINE HCL Inactive AZITHROMYCIN 500 MG SOLR 1 po q day ALTA THROMYCIN 500 MG SOLR 829085 AZITHROMYCIN Inactive CINNAMON ALPHA LIPOIC AC CMPLX CAPS by mouth twice a d ay in AM by mouth twice a day in PM CINNAMON ALPHA LIPOIC AC CMPLX CAPS ALPHA LIPOIC [id number] CAPS Inactive MICARDIS HCT 80-12.5 MG TABS 1 qd MICARDI S HCT 80-12.5 MG TABS 353530 TELMISARTAN-HCTZ Inactive AMOXICILLIN 500 MG CAPS 2 po BID x 10 days AMOXICILLIN 500 MG CAPS 871627 AMOXICILLIN Inactive AZITHROMYCIN 250 MG TABS take 2 po today then take 1 po days 2-5 AZITHROMYCIN 250 MG TABS 3726379 AZITHROMYCIN Inactiv e Vital Signs Date Name [...] - 3141-9 417 [lb_av] Weigh t Measured Diagnostic Results Date Name Value Unit Range Description Lab Report: CBC, Comp. Metabolic Panel, Thyroid Stimulating Hormone (L), ... - Chemistry sodium, serum 142 mmol/L 556-966 3946/02/27 potassium, serum 4.7 mmol/L 3.5-5.2 chloride, serum [...] mg/g{creat} 0-2 9 cholesterol, serum 168 mg/dL 128-640 1476/02/27 triglyceride, serum, fasting 101 mg/dL 30-200 HDL [...] Lipid Panel, Basic Metabolic Panel - Chemistry bilirubin, serum, total 0.30 mg/dL 0.00-1.00 alanine aminotransferase (SGPT), serum 22 U/L 12-78 aspartate aminotransferase (SGOT), serum 12 U/L 15-37 alkaline phosphatase, serum 84 U/L 50-136 hemoglobin A1C, blood, as % of total hemoglobin 6.6 % 4.3-6.0 cholesterol, serum 140 mg/dL 724-774 3088/11/08 triglyceride, serum, fasting 76 mg/dL 30-200 HDL cholesterol, serum 60 mg/dL 32-96 LDL cholesterol, serum 65 mg/dL 0-130 sodium, serum 143 mmol/L 671-753 9428/11/08 potassium, serum 4.8 mmol/L 3.5-5.2 chloride, serum [...] 5.0-8.5 Encounters Code Encounter Date Provider Facility CPT-41221 Level 2 Est. Patient 08:00:22 CDT [address] dc MD [facility]-83582 Level 3 Est. Patient 19:06:55 CDT Bertrand marquez [facility] CPT-99600 Level 3 Est. Patient 10:08:23 GRAPHIC ENGINEER Bertrand marquez [facility]-68910 Level 3 Est. Patient 16:37:54 GRAPHIC ENGINEER Bertrand marquez [facility] CPT-97267 Level 3 Est. Patient 11:31:59 GRAPHIC ENGINEER Bertrand marquez [facility] CPT-20923 Level 3 Est. Patient 10:20:08 CDT Adolfo villasenor [facility] CPT-39258 Level 3 Est. Patient 13:45:20 CDT Sanket buckley [facility] CPT-99801 Level 3 Est. Patient 12:51:06 CDT Adolfo villasenor [facility] CPT-82710 Level 3 Est. Patient 11:22:51 GRAPHIC ENGINEER Yoli tolbert MD PhD [facility]-48308 Level 3 Est. Patient 13:33:19 CDT Bertrand marquez [facility] Procedures Code Procedure Name Date Entry Date Standard Desc ription CPT-92831 Knee comp 4/> V 11:58:06 GRAPHIC ENGINEER
--- OUTSIDE RECORDS SUMMARY | 2019-11-13 10:40 | XMS REPORT | Clinical Summary ---
Author Author Admin, Enrique Adamson Organization [facility] Address Unknown Phone Allergies, Adverse Reactions, Alerts [...] SCABIES 133.0 Resolved Yoli Mercado MD PhD [facility] DIABETES V18.0 Active Lilia Clemons RN [...] TID PRN for muscle pain CYCLOBENZAPRINE HCL 72197493444 Active Brittni Ventura SENIOR PENSIONS ADMINISTRATOR Active AMLODIPINE BESYLATE 5 MG TABS 1 tablet by mouth daily for bl ood pressure AMLODIPINE BESYLATE 17152135304 Active Bertrand Patel DO Active MICARDIS 80 MG TABS 1 tablet daily for blood pressure TELMISARTAN 19415734829 Active Bertrand Patel DO Active MICARDIS HCT 80-12.5 MG TABS 1 qd TELMISARTA N-HCTZ 66448221751 No Longer Active Bertrand Patel DO Active FUROSEMIDE 20 MG TABS take one po PRN FUROSEMIDE 59381196872 Active Bertrand Patel DO Active CINNAMON ALPHA LIPOIC AC CMPLX CAPS by mouth twice a d ay in AM by mouth twice a day in PM ALPHA LIPOIC [id number] CAPS 553236 06793 No Longer Active Bertrand Patel DO Active AZITHROMYCIN 500 MG SOLR 1 po q day AZITHROMYCI N 81614181958 No Longer Active Bertrand Patel DO Active CYMBALTA 30 MG CPEP 1 cap by mouth daily DULOXE CATHI HCL 74094654668 No Longer Active Bertrand Patel DO Active CYMBALTA 60 MG CPEP 1 cap by mouth daily DULOXE CATHI HCL 19663401851 Active Bertrand Patel DO Active WELLBUTRIN 75 MG TABS 2 times daily BUPROPION H CL 88185698942 No Longer Active Bertrand Patel DO Active [facility] MELATONIN 5-10 MG CR-TABS Take one by mouth daily at bedtime 20 15/04/08 MELATONIN-PYRIDOXINE 82341685482 Active Bertrand Patel DO Activ e LORTAB 7.5-500 MG TABS take one po Q6 hours HYDROCODONE-ACETAMINOPHEN 39188533277 Active Bertrand Patel DO Active PROAIR HFA 108 (90 BASE) MCG/ACT AERS take one to two puffs po Q4-6 hour prn cough and shortness of breath ALBUTEROL SULFATE 1452377522 1 Active Adolfo OSORIO Active AZITHROMYCIN 250 MG TABS take 2 po today then take 1 po days 2-5 AZITHROMYCIN 97013565317 No Longer Active Adolfo OSORIO Active VITAMIN E 200 UNIT CAPS 1 cap po qd VITAMIN E 9509590959 5 Active Adolfo OSORIO Active PERMETHRIN 5 % CREA apply neck to toes tonight a nd then rinse off in morning. repeat at 7 days PERMETHRIN 49177193856 No Longer Active Adolfo OSORIO Active AMOXICILLIN 500 MG CAPS 2 po BID x 10 days AMOX ICILLIN 39491161628 No Longer Active Yoli Mercado MD PhD Active ALPRAZOLAM 0.5 MG TAB 1 tab by mouth tid ALPRAZOL AM 82305195814 Active Bertrand Patel DO Active PRAVASTATIN SODIUM 20 MG TABS 1 tablet by mouth daily at bedtime 20 05/12/02 PRAVASTATIN SODIUM 11151766500 Active Bertrand Patel DO Active B-12 1000 MCG CAPS 1 tab daily CYANOCOBALAMIN 7758956 2732 Active Bertrand Patel DO Active INSUPEN ULTRAFIN 31G X 6 MM MISC USE DIRECTED 03/04 INSULIN PEN NEEDLE 90737343714 No Longer Active Bertrand Jacklyn Patel DO Active TRANSDERM-SCOP 1.5 MG PT72 1 patch applied behind ear q 3 day 20 04/13/28 SCOPOLAMINE BASE 87517317171 No Longer Active Bertrand Jacklyn Patel DO Active MACRODANTIN 100 MG CAPS one p.o. b.i.d. x2 weeks 03/04 NITROFURANTOIN MACROCRYSTAL 43889766623 No Longer Active Bertrand Jacklyn Patel DO Active METFORMIN HCL 500 MG TABS 1 bid METFORMIN HCL 59875360 898 Active Bertrand Patel DO Active MACRODANTIN 100 MG CAPS one p.o. b.i.d. x2 weeks 03/04 MACRODANTIN 100 MG CAPS 338305 NITROFURANTOIN MACROCRYSTAL Inactive TRANSDERM-SCOP 1.5 MG PT72 [...] at 7 days PERMETHRIN 5 % CREA 590723 PERMETHRIN Inactive WELLBUTRIN 75 MG TABS 2 times daily WELLBUTRIN 75 MG TABS 809765 BUPROPION HCL Inactive CYMBALTA 30 MG CPEP 1 cap by mouth daily CYMBALTA 30 MG CPEP 451762 DULOXETINE HCL Inactive AZITHROMYCIN 500 MG SOLR 1 po q day ALTA THROMYCIN 500 MG SOLR 776442 AZITHROMYCIN Inactive CINNAMON ALPHA LIPOIC AC CMPLX CAPS by mouth twice a d ay in AM by mouth twice a day in PM CINNAMON ALPHA LIPOIC AC CMPLX CAPS ALPHA LIPOIC [id number] CAPS Inactive MICARDIS HCT 80-12.5 MG TABS [address] 80-12.5 MG TABS TELMISARTAN-HCTZ Inactive AMOXICILLIN 500 MG CAPS 2 po BID x 10 days AMOXICILLIN 500 MG CAPS 641272 AMOXICILLIN Inactive AZITHROMYCIN 250 MG TABS take 2 po today then take 1 po days 2-5 AZITHROMYCIN 250 MG TABS 9722531 AZITHROMYCIN Inactiv e Vital Signs Date Name [...] - Chem istry sodium, serum 144 mmol/L 519-042 2559/06/18 potassium, serum 4.4 mmol/L 3.5-5.2 chloride, serum 101 mmol/L 98-107 carbon dioxide, venous blood 31.0 mmol/L 21.0-32 .0 blood glucose 50 mg/dL 65-110 calcium, serum 8.7 mg/dL 8.5-10.1 urea nitrogen, blood 20 mg/dL 7-18 creatinine, serum 1.00 mg/dL 0.60-1.30 Lab Report: CBC, Comp. Metabolic Panel, Thyroid Stimulating Hormone (L), ... - Chemistry sodium, serum 142 mmol/L 946-239 3878/02/27 potassium, serum 4.7 mmol/L 3.5-5.2 chloride, serum [...] mg/g{creat} 0-2 9 cholesterol, serum 168 mg/dL 958-526 7518/02/27 triglyceride, serum, fasting 101 mg/dL 30-200 HDL [...] 6.3 % 4.3-6.0 sodium, serum 143 mmol/L 548-812 8805/06/10 potassium, serum 5.0 mmol/L 3.5-5.2 chloride, serum [...] 0.30 mg/dL 0.00-1.00 cholesterol, serum 140 mg/dL 981-875 7568/11/08 triglyceride, serum, fasting 76 mg/dL 30-200 HDL cholesterol, serum 60 mg/dL 32-96 LDL cholesterol, serum 65 mg/dL 0-130 sodium, serum 143 mmol/L 420-236 0018/11/08 potassium, serum 4.8 mmol/L 3.5-5.2 chloride, serum [...] 5.0-8.5 Encounters Code Encounter Date Provider Facility CPT-53338 Level 2 Est. Patient 08:00:22 CDT Jcarlos dc MD [facility] CPT-22981 Level 3 Est. Patient 19:06:55 CDT Bertrand marquez [facility] CPT-03071 Level 3 Est. Patient 10:08:23 SENIOR DIRECTOR CREATIVE SERVICES Bertrand marquez [facility] [place]-98736 Level 3 Est. Patient 16:37:54 SENIOR DIRECTOR CREATIVE SERVICES Bertrand marquez [facility] CPT-59558 Level 3 Est. Patient 11:31:59 SENIOR DIRECTOR CREATIVE SERVICES Bertrand marquez [facility] CPT-29451 Level 3 Est. Patient 10:20:08 CDT Adolfo villasenor [facility] CPT-95447 Level 3 Est. Patient 13:45:20 CDT Sanket buckley [facility] CPT-20189 Level 3 Est. Patient 12:51:06 CDT Adolfo villasenor [facility] CPT-27551 Level 3 Est. Patient 11:22:51 SENIOR DIRECTOR CREATIVE SERVICES Yoli tolbert MD PhD [facility]-40689 Level 3 Est. Patient 13:33:19 CDT Bertrand marquez [facility] Procedures Code Procedure Name Date Entry Date Standard Desc ription CPT-19755 Knee comp 4/> V 11:58:06 SENIOR DIRECTOR CREATIVE SERVICES
--- OUTSIDE RECORDS SUMMARY | 2019-11-13 10:40 | XMS REPORT ---
Author Author [facility] Medic al StaffCAMILO Organization [facility] Address [address], [place] [id number] Phone [phone] Care Team Providers Care Field Research Associate Name Role Phone RC MARQUEZ DO PP [phone] Summary purpose TRANSITION OF CARE AUTO GENERATION Chief Complaint and Reason for Visit No authorized Reason for Visit (Admitting Diagnosis) is available for this visit . Problem list No authorized problems tracked for continuity of care are available for this vis it. Encounters No authorized problems tracked for encounter diagnoses are available for this vi sit. Medications No home medications recorded for this patient visit Allergies, adverse reactions, alerts Allergen Category Ingredient Status Reaction Severity Onset Sulfa (Sulfonamide Antibiotics) Drug Allergy Sulfa (Sulfonami de Antibiotics) Confirmed or Verified Hives Severe Adult Byetta Drug Allergy Byetta Confirmed or Verified Rash Moder ate Adult Byetta Drug Allergy exenatide Confirmed or Verified Rash Moder ate Adult Metamucil Drug Allergy Metamucil Confirmed or Verified Shortness of Breath Severe Adult Metamucil Drug Allergy Psyllium Confirmed or Verified Shortness of Breath Severe Adult Metamucil Drug Allergy sucrose Confirmed or Verified Shortness of Br eath Severe Adult Immunizations No immunizations recorded for this patient [...]
--- OUTSIDE RECORDS SUMMARY | 2019-11-13 10:40 | XMS REPORT | Clinical Summary ---
Author Author Admin, Enrique Adamson Organization [facility] Address Unknown Phone Allergies, Adverse Reactions, [...] TID PRN for muscle pain CYCLOBENZAPRINE HCL 93866409035 Active Brittni Ventura DOOR FRAME ASSEMBLER MACHINE Active AMLODIPINE BESYLATE 5 MG TABS 1 tablet by mouth daily for bl ood pressure AMLODIPINE BESYLATE 24998979563 Active Bertrand Patel DO Active MICARDIS 80 MG TABS 1 tablet daily for blood pressure TELMISARTAN 55776105161 Active Bertrand Patel DO Active MICARDIS HCT 80-12.5 MG TABS 1 qd TELMISARTA N-HCTZ 47271370540 No Longer Active Bertrand Patel DO Active FUROSEMIDE 20 MG TABS take one po PRN FUROSEMIDE 98518818658 Active Bertrand Patel DO Active CINNAMON ALPHA LIPOIC AC CMPLX CAPS by mouth twice a d ay in AM by mouth twice a day in PM ALPHA LIPOIC [id number] CAPS 621627 52030 No Longer Active Bertrand Patel DO Active AZITHROMYCIN 500 MG SOLR 1 po q day AZITHROMYCI N 21223879102 No Longer Active Bertrand Patel DO Active CYMBALTA 30 MG CPEP 1 cap by mouth daily DULOXE CATHI HCL 07681979087 No Longer Active Bertrand Patel DO Active CYMBALTA 60 MG CPEP 1 cap by mouth daily DULOXE CATHI HCL 74094781472 Active Bertrand Patel DO Active WELLBUTRIN 75 MG TABS 2 times daily BUPROPION H CL 36148754388 No Longer Active Bertrand Patel DO Active [facility] MELATONIN 5-10 MG CR-TABS Take one by mouth daily at bedtime 20 15/04/08 MELATONIN-PYRIDOXINE 05482899465 Active Bertrand Patel DO Activ e LORTAB 7.5-500 MG TABS take one po Q6 hours HYDROCODONE-ACETAMINOPHEN 29648829416 Active Bertrand Patel DO Active PROAIR HFA 108 (90 BASE) MCG/ACT AERS take one to two puffs po Q4-6 hour prn cough and shortness of breath ALBUTEROL SULFATE 3820270038 1 Active Adolfo OSORIO Active AZITHROMYCIN 250 MG TABS take 2 po today then take 1 po days 2-5 AZITHROMYCIN 61928770547 No Longer Active Adolfo OSORIO Active VITAMIN E 200 UNIT CAPS 1 cap po qd VITAMIN E 9246361918 5 Active Adolfo OSORIO Active PERMETHRIN 5 % CREA apply neck to toes tonight a nd then rinse off in morning. repeat at 7 days PERMETHRIN 29473572653 No Longer Active Adolfo OSORIO Active AMOXICILLIN 500 MG CAPS 2 po BID x 10 days AMOX ICILLIN 80230307897 No Longer Active Yoli Mercado MD PhD Active ALPRAZOLAM 0.5 MG TAB 1 tab by mouth tid ALPRAZOL AM 88842374974 Active Bertrand Patel DO Active PRAVASTATIN SODIUM 20 MG TABS 1 tablet by mouth daily at bedtime 20 05/12/02 PRAVASTATIN SODIUM 04844039404 Active Bertrand Patel DO Active B-12 1000 MCG CAPS 1 tab daily CYANOCOBALAMIN 0841717 2732 Active Bertrand Patel DO Active INSUPEN ULTRAFIN 31G X 6 MM MISC USE DIRECTED 03/04 INSULIN PEN NEEDLE 58530038010 No Longer Active Bertrand Jacklyn Patel DO Active TRANSDERM-SCOP 1.5 MG PT72 1 patch applied behind ear q 3 day 20 04/13/28 SCOPOLAMINE BASE 24712362542 No Longer Active Bertrand Jacklyn Patel DO Active MACRODANTIN 100 MG CAPS one p.o. b.i.d. x2 weeks 03/04 NITROFURANTOIN MACROCRYSTAL 16470233471 No Longer Active Bertrand Jacklyn Patel DO Active METFORMIN HCL 500 MG TABS 1 bid METFORMIN HCL 52505975 898 Active Bertrand Patel DO Active MACRODANTIN 100 MG CAPS one p.o. b.i.d. x2 weeks 03/04 MACRODANTIN 100 MG CAPS 557841 NITROFURANTOIN MACROCRYSTAL Inactive TRANSDERM-SCOP 1.5 MG PT72 [...] at 7 days PERMETHRIN 5 % CREA 171350 PERMETHRIN Inactive WELLBUTRIN 75 MG TABS 2 times daily WELLBUTRIN 75 MG TABS 297934 BUPROPION HCL Inactive CYMBALTA 30 MG CPEP 1 cap by mouth daily CYMBALTA 30 MG CPEP 929832 DULOXETINE HCL Inactive AZITHROMYCIN 500 MG SOLR 1 po q day ALTA THROMYCIN 500 MG SOLR 930576 AZITHROMYCIN Inactive CINNAMON ALPHA LIPOIC AC CMPLX CAPS by mouth twice a d ay in AM by mouth twice a day in PM CINNAMON ALPHA LIPOIC AC CMPLX CAPS ALPHA LIPOIC [id number] CAPS Inactive MICARDIS HCT 80-12.5 MG TABS [address] 80-12.5 MG TABS TELMISARTAN-HCTZ Inactive AMOXICILLIN 500 MG CAPS 2 po BID x 10 days AMOXICILLIN 500 MG CAPS 528660 AMOXICILLIN Inactive AZITHROMYCIN 250 MG TABS take 2 po today then take 1 po days 2-5 AZITHROMYCIN 250 MG TABS 7310847 AZITHROMYCIN Inactiv e Vital Signs Date Name [...] - Chem istry sodium, serum 144 mmol/L 320-141 8151/06/18 urea nitrogen, blood 20 mg/dL 7-18 creatinine, serum 1.00 mg/dL 0.60-1.30 potassium, serum 4.4 mmol/L 3.5-5.2 chloride, serum 101 mmol/L 98-107 carbon dioxide, venous blood 31.0 mmol/L 21.0-32 .0 blood glucose 50 mg/dL 65-110 calcium, serum 8.7 mg/dL 8.5-10.1 Lab Report: CBC, Comp. Metabolic Panel, Thyroid Stimulating Hormone (L), ... - Chemistry sodium, serum 142 mmol/L 324-385 1954/02/27 potassium, serum 4.7 mmol/L 3.5-5.2 chloride, serum [...] mg/g{creat} 0-2 9 cholesterol, serum 168 mg/dL 125-731 3163/02/27 triglyceride, serum, fasting 101 mg/dL 30-200 HDL cholesterol, serum 47 mg/dL 32-96 LDL cholesterol, serum 101 mg/dL 0-130 Lab Report: CBC, Comp. Metabolic Panel, Thyroid Stimulating Hormone (L), ... - Hematology erythrocyte (RBC) count 4.52 10^6/MM^3 10*6/mm3 4.04-5.4 8 hemoglobin, blood 13.6 g/dL 12.0-16.0 hematocrit, blood 42.5 % 36.0-46.0 mean corpuscular volume, RBC 94 fL 80-97 mean corpuscular hemoglobin, RBC 30.0 pg 27. 0-31.2 leukocyte count, blood 10.2 10^3/MM^3 10*3/mm3 4.6-10.2 mean corpuscular hemoglobin concentration, RBC 31.9 G/DL % 31.8-35.4 red blood cell distribution width 15.7 % 11 .6-14.8 platelet count 317 10^3/MM^3 10*3/mm3 142-424 Lab Report: CBC, Comp. Metabolic Panel, Thyroid Stimulating Hormone (L), ... - Lab microalbumin, urine 30 0-19 Lab Report: HGBA1C, Basic Metabolic Pane l, B-Type Natriuretic Peptide - Chemistry blood glucose 80 mg/dL 65-110 calcium, serum 8.6 mg/dL 8.5-10.1 urea nitrogen, blood 22 mg/dL 7-18 creatinine, serum 1.00 mg/dL 0.60-1.30 carbon dioxide, venous blood 36.6 mmol/L 21.0-32 .0 chloride, serum 101 mmol/L 98-107 potassium, serum 5.0 mmol/L 3.5-5.2 sodium, serum 143 mmol/L 847-775 5317/06/10 hemoglobin A1C, blood, as % of total hemoglobin 6.3 % 4.3-6.0 Lab Report: HGBA1C, HEPATIC PANEL, Lipid Panel, Basic Metabolic Panel - Chemistry hemoglobin A1C, blood, as % of total hemoglobin 6.6 % 4.3-6.0 triglyceride, serum, fasting 76 mg/dL 30-200 HDL cholesterol, serum 60 mg/dL 32-96 LDL cholesterol, serum 65 mg/dL 0-130 sodium, serum 143 mmol/L 285-870 3943/11/08 potassium, serum 4.8 mmol/L 3.5-5.2 chloride, serum 103 mmol/L 98-107 carbon dioxide, venous blood 39.7 mmol/L 21.0-32 .0 blood glucose 75 mg/dL 65-110 calcium, serum 7.9 mg/dL 8.5-10.1 urea nitrogen, blood 13 mg/dL 7-18 creatinine, serum 0.70 mg/dL 0.60-1.30 alkaline phosphatase, serum 84 U/L 50-136 aspartate aminotransferase (SGOT), serum 12 U/L 15-37 alanine aminotransferase (SGPT), serum 22 U/L 12-78 bilirubin, serum, total 0.30 mg/dL 0.00-1.00 cholesterol, serum 140 mg/dL 130-200 Lab Report: UADIP W/MICRO, AUTO - Chemis [...] 5.0-8.5 Encounters Code Encounter Date Provider Facility CPT-30883 Level 2 Est. Patient 08:00:22 CDT Jcarlos dc MD [facility] CPT-85797 Level 3 Est. Patient 19:06:55 CDT Bertrand marquez [facility] CPT-21051 Level 3 Est. Patient 10:08:23 LABOR LAW PROFESSOR Bertrand marquez [facility] CPT-45233 Level 3 Est. Patient 16:37:54 LABOR LAW PROFESSOR Bertrand marquez [facility] CPT-58007 Level 3 Est. Patient 11:31:59 LABOR LAW PROFESSOR Bertrand marquez [facility] CPT-20757 Level 3 Est. Patient 10:20:08 CDT Adolfo villasenor [facility] CPT-07166 Level 3 Est. Patient 13:45:20 CDT Sanket buckley [facility] CPT-72041 Level 3 Est. Patient 12:51:06 CDT Adolfo villasenor [facility] CPT-53890 Level 3 Est. Patient 11:22:51 LABOR LAW PROFESSOR Yoli tolbert MD PhD [facility]-80693 Level 3 Est. Patient 13:33:19 CDT Bertrand marquez [facility] Procedures Code Procedure Name Date Entry Date Standard Desc ription CPT-70631 Knee comp 4/> V 11:58:06 LABOR LAW PROFESSOR
--- OUTSIDE RECORDS SUMMARY | 2019-11-13 10:40 | XMS REPORT | Clinical Summary ---
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 Active AMLODIPINE BESYLATE 5 MG TABS 1 tablet by mouth daily for bl ood pressure AMLODIPINE BESYLATE 90013165324 Active Bertrand Patel DO Active MICARDIS 80 MG TABS 1 tablet daily for blood pressure TELMISARTAN 83449110952 Active Bertrand Patel DO Active MICARDIS HCT 80-12.5 MG TABS 1 qd TELMISARTA N-HCTZ 92230176603 No Longer Active Bertrand Patel DO Active FUROSEMIDE 20 MG TABS take one po PRN FUROSEMIDE 65417744289 Active Bertrand Patel DO Active CINNAMON ALPHA LIPOIC AC CMPLX CAPS by mouth twice a d ay in AM by mouth twice a day in PM ALPHA LIPOIC [id number]-DKDPUYRE CAPS 821682 25466 No Longer Active Bertrand Patel DO Active AZITHROMYCIN 500 MG SOLR 1 po q day AZITHROMYCI N 30636359503 No Longer Active Bertrand Patel DO Active CYMBALTA 30 MG CPEP 1 cap by mouth daily DULOXE CATHI HCL 84291076658 No Longer Active Bertrand Patel DO Active CYMBALTA 60 MG CPEP 1 cap by mouth daily DULOXE CATHI HCL 31911232323 Active Bertrand Patel DO Active WELLBUTRIN 75 MG TABS 2 times daily BUPROPION H CL 99488711939 No Longer Active eBrtrand aPtel DO Active [facility] MELATONIN 5-10 MG CR-TABS Take one by mouth daily at bedtime 20 15/04/08 MELATONIN-PYRIDOXINE 72230027532 Active Bertrand Patel DO Activ e LORTAB 7.5-500 MG TABS take one po Q6 hours HYDROCODONE-ACETAMINOPHEN 44834118932 Active Bertrand Patel DO Active PROAIR HFA 108 (90 BASE) MCG/ACT AERS take one to two puffs po Q4-6 hour prn cough and shortness of breath ALBUTEROL SULFATE 4296805165 1 Active Adolfo OSORIO Active AZITHROMYCIN 250 MG TABS take 2 po today then take 1 po days 2-5 AZITHROMYCIN 56695605877 No Longer Active Adolfo OSORIO Active VITAMIN E 200 UNIT CAPS 1 cap po qd VITAMIN E 1624859950 5 Active Adolfo OSORIO Active PERMETHRIN 5 % CREA apply neck to toes tonight a nd then rinse off in morning. repeat at 7 days PERMETHRIN 76388127955 No Longer Active Adolfo OSORIO Active AMOXICILLIN 500 MG CAPS 2 po BID x 10 days AMOX ICILLIN 01649894651 No Longer Active Yoli Mercado MD PhD Active ALPRAZOLAM 0.5 MG TAB 1 tab by mouth tid ALPRAZOL AM 21997320944 Active Bertrand Patel DO Active PRAVASTATIN SODIUM 20 MG TABS 1 tablet by mouth daily at bedtime 20 05/12/02 PRAVASTATIN SODIUM 82833306934 Active Bertrand Patel DO Active B-12 1000 MCG CAPS 1 tab daily CYANOCOBALAMIN 2785954 2732 Active Bertrand Patel DO Active INSUPEN ULTRAFIN 31G X 6 MM MISC USE DIRECTED 03/04 INSULIN PEN NEEDLE 15160521614 No Longer Active Bertrand Jacklyn Patel DO Active TRANSDERM-SCOP 1.5 MG PT72 1 patch applied behind ear q 3 day 20 04/13/28 SCOPOLAMINE BASE 20518050447 No Longer Active Bertrand Jacklyn Patel DO Active MACRODANTIN 100 MG CAPS one p.o. b.i.d. x2 weeks 03/04 NITROFURANTOIN MACROCRYSTAL 80468557131 No Longer Active Bertrand Jacklyn Patel DO Active METFORMIN HCL 500 MG TABS 1 bid METFORMIN HCL 02243816 898 Active Bertrand Patel DO Active MACRODANTIN 100 MG CAPS one p.o. b.i.d. x2 weeks 03/04 MACRODANTIN 100 MG CAPS 386891 NITROFURANTOIN MACROCRYSTAL Inactive TRANSDERM-SCOP 1.5 MG PT72 [...] at 7 days PERMETHRIN 5 % CREA 516973 PERMETHRIN Inactive WELLBUTRIN 75 MG TABS 2 times daily WELLBUTRIN 75 MG TABS 607964 BUPROPION HCL Inactive CYMBALTA 30 MG CPEP 1 cap by mouth daily CYMBALTA 30 MG CPEP 179103 DULOXETINE HCL Inactive AZITHROMYCIN 500 MG SOLR 1 po q day ALTA THROMYCIN 500 MG SOLR 376735 AZITHROMYCIN Inactive CINNAMON ALPHA LIPOIC AC CMPLX CAPS by mouth twice a d ay in AM by mouth twice a day in PM CINNAMON ALPHA LIPOIC AC CMPLX CAPS ALPHA LIPOIC [id number]-OR-GYDGOEMV CAPS Inactive MICARDIS HCT 80-12.5 MG TABS [address] 80-12.5 MG TABS TELMISARTAN-HCTZ Inactive AMOXICILLIN 500 MG CAPS 2 po BID x 10 days AMOXICILLIN 500 MG CAPS 160408 AMOXICILLIN Inactive AZITHROMYCIN 250 MG TABS take 2 po today then take 1 po days 2-5 AZITHROMYCIN 250 MG TABS 4684263 AZITHROMYCIN Inactiv e Vital Signs Date Name [...] - Chem istry sodium, serum 144 mmol/L 700-083 9570/06/18 potassium, serum 4.4 mmol/L 3.5-5.2 chloride, serum 101 mmol/L 98-107 carbon dioxide, venous blood 31.0 mmol/L 21.0-32 .0 blood glucose 50 mg/dL 65-110 calcium, serum 8.7 mg/dL 8.5-10.1 urea nitrogen, blood 20 mg/dL 7-18 creatinine, serum 1.00 mg/dL 0.60-1.30 Lab Report: CBC, Comp. Metabolic Panel, Thyroid Stimulating Hormone (L), ... - Chemistry sodium, serum 142 mmol/L 546-984 2643/02/27 potassium, serum 4.7 mmol/L 3.5-5.2 chloride, serum [...] mg/g{creat} 0-2 9 cholesterol, serum 168 mg/dL 719-127 6639/02/27 triglyceride, serum, fasting 101 mg/dL 30-200 HDL [...] 6.3 % 4.3-6.0 sodium, serum 143 mmol/L 876-862 5721/06/10 potassium, serum 5.0 mmol/L 3.5-5.2 chloride, serum [...] 0.30 mg/dL 0.00-1.00 cholesterol, serum 140 mg/dL 233-218 4446/11/08 triglyceride, serum, fasting 76 mg/dL 30-200 HDL cholesterol, serum 60 mg/dL 32-96 LDL cholesterol, serum 65 mg/dL 0-130 sodium, serum 143 mmol/L 778-314 7979/11/08 potassium, serum 4.8 mmol/L 3.5-5.2 chloride, serum [...] 5.0-8.5 Encounters Code Encounter Date Provider Facility CPT-83664 Level 2 Est. Patient 08:00:22 CDT Jcarlos dc MD [facility] CPT-54433 Level 3 Est. Patient 19:06:55 CDT Bertrand marquez [facility] CPT-93057 Level 3 Est. Patient 10:08:23 ON SITE PROPERTY MANAGER Bertrand marquez [facility]-92398 Level 3 Est. Patient 16:37:54 ON SITE PROPERTY MANAGER Bertrand marquez [facility] CPT-97351 Level 3 Est. Patient 11:31:59 ON SITE PROPERTY MANAGER Bertrand marquez [facility] CPT-23760 Level 3 Est. Patient 10:20:08 CDT Adolfo villasenor [facility] CPT-66951 Level 3 Est. Patient 13:45:20 CDT Sanket buckley [facility] CPT-32583 Level 3 Est. Patient 12:51:06 CDT Adolfo villasenor [facility] CPT-88185 Level 3 Est. Patient 11:22:51 ON SITE PROPERTY MANAGER Yoli tolbert MD PhD [facility]-75616 Level 3 Est. Patient 13:33:19 CDT Bertrand marquez [facility] Procedures Code Procedure Name Date Entry Date Standard Desc ription CPT-32966 Knee comp 4/> V 11:58:06 ON SITE PROPERTY MANAGER
--- OUTSIDE RECORDS SUMMARY | 2019-11-13 10:41 | XMS REPORT | Clinical Summary ---
Author Author Admin, Enrique Adamson Organization [facility] Address Unknown Phone Unavailable Allergies, [...] mellitus SINUSITIS, FRONTAL, ACUTE 461.1 Resolved Yoli Meracdo MD PhD Acute frontal sinusitis COUGH 786.2 [...] Mercado MD PhD Foreign body in ear SCABIES ICD-133.0 Inactive Yoli Mercado MD PhD [...] SCREENING ICD-V70.0 Inactive Yoli sabillon MD PhD Medication List Medication Instructions Start Date Stop Date Generic Name ND Status Provider Patient Instruction AUGMENTIN 875-125 MG TABS 1 pill by mouth twice daily AMOXICILLIN-POT CLAVULANATE 22278685696 Active Yoli Mercado MD PhD Active FUROSEMIDE 20 MG TABS 1 pill by mouth daily if needed for edema 201 09/01/01 FUROSEMIDE 45764220132 Active Yoli Mercado MD PhD Active LEVAQUIN 500 MG TABS 1 pill by mouth daily LEVO FLOXACIN 20244779470 No Longer Active Yoli Mercado MD PhD Active CYCLOBENZAPRINE HCL 10 MG TABS Take 1 tab TID PRN for muscle pain CYCLOBENZAPRINE HCL 50507185795 Active Brittni Fernándezum PROCEDURES RN Active AMLODIPINE BESYLATE 5 MG TABS 1 tablet by mouth daily for bl ood pressure AMLODIPINE BESYLATE 44546642544 Active Yoli Mercado MD P hD Active MICARDIS 80 MG TABS 1 tablet daily for blood pressure TELMISARTAN 31192582667 Active Bertrand Patel DO Active MICARDIS HCT 80-12.5 MG TABS 1 qd TELMISARTA N-HCTZ 77688823643 No Longer Active Bertrand Patel DO Active CINNAMON ALPHA LIPOIC AC CMPLX CAPS by mouth twice a d ay in AM by mouth twice a day in PM ALPHA LIPOIC OEAL-[id number] CAPS 858497 88328 No Longer Active Bertrand Patel DO Active AZITHROMYCIN 500 MG SOLR 1 po q day AZITHROMYCI N 85082016853 No Longer Active Bertrand Patel DO Active CYMBALTA 30 MG CPEP 1 cap by mouth daily DULOXE CATHI HCL 33503257026 No Longer Active Bertrand Patel DO Active CYMBALTA 60 MG CPEP 1 cap by mouth daily DULOXE CATHI HCL 37083639078 Active Bertrand Patel DO Active WELLBUTRIN 75 MG TABS 2 times daily BUPROPION H CL 68184875665 No Longer Active Bertrand Patel DO Active [facility] MELATONIN 5-10 MG CR-TABS Take one by mouth daily at bedtime 20 15/04/08 MELATONIN-PYRIDOXINE 97621602880 Active Bertrand Patel DO Activ e LORTAB 7.5-500 MG TABS take one po Q6 hours HYDROCODONE-ACETAMINOPHEN Active Bertrand Patel DO Active PROAIR HFA 108 (90 BASE) MCG/ACT AERS take one to two puffs po Q4-6 hour prn cough and shortness of breath ALBUTEROL SULFATE 9112792854 1 Active Adolfo OSORIO Active AZITHROMYCIN 250 MG TABS take 2 po today then take 1 po days 2-5 AZITHROMYCIN 81872651142 No Longer Active Adolfo OSORIO Active VITAMIN E 200 UNIT CAPS 1 cap po qd VITAMIN E 0593799447 5 Active Adolfo OSORIO Active PERMETHRIN 5 % CREA apply neck to toes tonight a nd then rinse off in morning. repeat at 7 days PERMETHRIN 07415547681 No Longer Active Adolfo OSORIO Active AMOXICILLIN 500 MG CAPS 2 po BID x 10 days AMOX ICILLIN 06180031283 No Longer Active Yoli Mercado MD PhD Active ALPRAZOLAM 0.5 MG TAB 1 tab by mouth tid ALPRAZOL AM 97879674595 Active Bertrand Patel DO Active PRAVASTATIN SODIUM 20 MG TABS 1 tablet by mouth daily at bedtime 20 05/12/02 PRAVASTATIN SODIUM 00783567416 Active Bertrand Patel DO Active B-12 1000 MCG CAPS 1 tab daily CYANOCOBALAMIN 7936066 2732 Active Bertrand Patel DO Active INSUPEN ULTRAFIN 31G X 6 MM MISC USE DIRECTED 03/04 INSULIN PEN NEEDLE 25356428048 No Longer Active Bertrand Patel DO Active TRANSDERM-SCOP 1.5 MG PT72 1 patch applied behind ear q 3 day 20 04/13/28 SCOPOLAMINE BASE 15799308791 No Longer Active Bertrand Patel DO Active MACRODANTIN 100 MG CAPS one p.o. b.i.d. x2 weeks 03/04 NITROFURANTOIN MACROCRYSTAL 57998130874 No Longer Active Bertrand Patel DO Active METFORMIN HCL 500 MG TABS 1 bid METFORMIN HCL 12381209 898 Active Bertrand Patel DO Active MACRODANTIN 100 MG CAPS one p.o. b.i.d. x2 weeks 03/04 MACRODANTIN 100 MG CAPS 728061 NITROFURANTOIN MACROCRYSTAL Inactive TRANSDERM-SCOP 1.5 MG PT72 [...] at 7 days PERMETHRIN 5 % CREA 112435 PERMETHRIN Inactive WELLBUTRIN 75 MG TABS 2 times daily WELLBUTRIN 75 MG TABS 915349 BUPROPION HCL Inactive CYMBALTA 30 MG CPEP 1 cap by mouth daily CYMBALTA 30 MG CPEP 848342 DULOXETINE HCL Inactive AZITHROMYCIN 500 MG SOLR 1 po q day ALTA THROMYCIN 500 MG SOLR 024926 AZITHROMYCIN Inactive CINNAMON ALPHA LIPOIC AC CMPLX CAPS by mouth twice a d ay in AM by mouth twice a day in PM CINNAMON ALPHA LIPOIC AC CMPLX CAPS ALPHA LIPOIC [id number] CAPS Inactive MICARDIS HCT 80-12.5 MG TABS 1 qd MICARDI S HCT 80-12.5 MG TABS 106070 TELMISARTAN-HCTZ Inactive AMOXICILLIN 500 MG CAPS 2 po BID x 10 days AMOXICILLIN 500 MG CAPS 013059 AMOXICILLIN Inactive AZITHROMYCIN 250 MG TABS take 2 po today then take 1 po days 2-5 AZITHROMYCIN 250 MG TABS 8665169 AZITHROMYCIN Inactiv e LEVAQUIN 500 MG TABS 1 pill by mouth daily LEVAQUIN 500 MG TABS 302699 LEVOFLOXACIN Inactive Vital Signs Date Name Value [...] ... - Chemistry sodium, serum 142 mmol/L 106-405 4558/02/27 potassium, serum 4.7 mmol/L 3.5-5.2 chloride, serum [...] mg/g{creat} 0-2 9 cholesterol, serum 168 mg/dL 942-321 0132/02/27 triglyceride, serum, fasting 101 mg/dL 30-200 HDL [...] 6.6 % 4.3-6.0 cholesterol, serum 140 mg/dL 015-716 7310/11/08 triglyceride, serum, fasting 76 mg/dL 30-200 HDL cholesterol, serum 60 mg/dL 32-96 LDL cholesterol, serum 65 mg/dL 0-130 sodium, serum 143 mmol/L 829-386 1512/11/08 potassium, serum 4.8 mmol/L 3.5-5.2 chloride, serum [...] mg/dL Encounters Code Encounter Date Provider Facility CPT-97878 Level 3 Est. Patient 19:12:03 CDT Yoli tolbert MD PhD [facility] CPT-55992 Level 3 Est. Patient 14:36:01 CDT Yoli tolbert MD [facility]-23624 Level 2 Est. Patient 08:00:22 CDT Jcarlos dc MD [facility]-94195 Level 3 Est. Patient 19:06:55 CDT Bertrand marquez [facility] CPT-64990 Level 3 Est. Patient 10:08:23 FINISHER MACHINE Bertrand [facility] CPT-74872 Level 3 Est. Patient 16:37:54 FINISHER MACHINE Bertrand marquez [facility] CPT-90733 Level 3 Est. Patient 11:31:59 FINISHER MACHINE Bertrand marquez [facility] CPT-38788 Level 3 Est. Patient 10:20:08 CDT Adolfo villasenor [facility] CPT-03056 Level 3 Est. Patient 13:45:20 CDT Sanket buckley [facility] CPT-44434 Level 3 Est. Patient 12:51:06 CDT Adolfo villasenor [facility] CPT-52577 Level 3 Est. Patient 11:22:51 FINISHER MACHINE Yoli tolbert MD PhD [facility] [place]-70086 Level 3 Est. Patient 13:33:19 CDT Bertrand marquez [facility] Procedures Code Procedure Name Date Entry Date Standard Desc ription CPT-49457 Knee comp 4/> V 11:58:06 FINISHER MACHINE
--- OUTSIDE RECORDS SUMMARY | 2019-11-13 10:41 | XMS REPORT | Clinical Summary ---
Author Author Admin, Enrique Adamson Organization [facility] Address Unknown Phone Unavailable Allergies, Adverse [...] one by mouth daily at bedtime MELATONIN-PYRIDOXINE 10131651782 No Longer Active Bertrand Patel DO Active VITAMIN E 200 UNIT CAPS 1 cap po qd VITAMIN E 316 93183266 No Longer Active Bertrand Patel DO Active B-12 1000 MCG CAPS 1 tab daily CYANOCOBALAMIN 31 150899557 No Longer Active Bertrand Patel DO Active METFORMIN HCL 500 MG TABS 1 bid METFORMIN HCL 50377578972 No Longer Active Bertrand Patel DO Active FUROSEMIDE 20 MG TABS 1 pill by mouth daily if needed for edema FUROSEMIDE 75852974579 No Longer Active Bertrand Patel DO Act [place] PRAVASTATIN SODIUM 20 MG TABS 1 tablet by mouth daily at bedtime PRAVASTATIN SODIUM 01891839090 No Longer Active Bertrand Patel DO Active AUGMENTIN 875-125 MG TABS 1 pill by mouth twice daily AMOXICILLIN-POT CLAVULANATE 13773064918 No Longer Active Yoli Mercado MD PhD Active LEVAQUIN 500 MG TABS 1 pill by mouth daily LEVO FLOXACIN 42634800516 No Longer Active Yoli Mercado MD PhD Active CYCLOBENZAPRINE HCL 10 MG TABS Take 1 tab TID PRN for muscle pain CYCLOBENZAPRINE HCL 75334982759 Active Brittni Fernándezum PARTS DESIGNER Active AMLODIPINE BESYLATE 5 MG TABS 1 tablet by mouth daily for bl ood pressure AMLODIPINE BESYLATE 26652447806 Active Yoli Mercado MD P hD Active MICARDIS 80 MG TABS 1 tablet daily for blood pressure TELMISARTAN 56309368037 Active Bertrand Patel DO Active MICARDIS HCT 80-12.5 MG TABS 1 qd TELMISARTA N-HCTZ 37368660454 No Longer Active Bertrand Patel DO Active CINNAMON ALPHA LIPOIC AC CMPLX CAPS by mouth twice a d ay in AM by mouth twice a day in PM ALPHA LIPOIC FERG-ON-[id number] CAPS 743686 58823 No Longer Active Bertrand Patel DO Active AZITHROMYCIN 500 MG SOLR 1 po q day AZITHROMYCI N 79402705326 No Longer Active Bertrand Patel DO Active CYMBALTA 30 MG CPEP 1 cap by mouth daily DULOXE CATHI HCL 53439307474 No Longer Active Bertrand Patel DO Active CYMBALTA 60 MG CPEP 1 cap by mouth daily DULOXE CATHI HCL 78456375763 Active Bertrand Patel DO Active WELLBUTRIN 75 MG TABS 2 times daily BUPROPION H CL 80511772434 No Longer Active Bertrand Patel DO Active LORTAB 7.5-500 MG TABS take one po Q6 hours HYDROCODONE-ACETAMINOPHEN Active Bertrand Patel DO Active PROAIR HFA 108 (90 BASE) MCG/ACT AERS take one to two puffs po Q4-6 hour prn cough and shortness of breath ALBUTEROL SULFATE 7212240250 1 Active Adolfo OSORIO Active AZITHROMYCIN 250 MG TABS take 2 po today then take 1 po days 2-5 AZITHROMYCIN 21869818241 No Longer Active Adolfo OSORIO Active PERMETHRIN 5 % CREA apply neck to toes tonight a nd then rinse off in morning. repeat at 7 days PERMETHRIN 51223800718 No Longer Active Adolfo OSORIO Active AMOXICILLIN 500 MG CAPS 2 po BID x 10 days AMOX ICILLIN 50893062583 No Longer Active Yoli Mercado MD PhD Active ALPRAZOLAM 0.5 MG TAB 1 tab by mouth tid ALPRAZOL AM 04176921629 Active Bertrand Patel DO Active INSUPEN ULTRAFIN 31G X 6 MM MISC USE DIRECTED 03/04 INSULIN PEN NEEDLE 22027443485 No Longer Active Bertrand Patel DO Active TRANSDERM-SCOP 1.5 MG PT72 1 patch applied behind ear q 3 day 20 04/13/28 SCOPOLAMINE BASE 79782202116 No Longer Active Bertrand Patel DO Active MACRODANTIN 100 MG CAPS one p.o. b.i.d. x2 weeks 03/04 NITROFURANTOIN MACROCRYSTAL 60695866780 No Longer Active Bertrand Patel DO Active MACRODANTIN 100 MG CAPS one p.o. b.i.d. x2 weeks 03/04 MACRODANTIN 100 MG CAPS 542732 NITROFURANTOIN MACROCRYSTAL Inactive TRANSDERM-SCOP 1.5 MG PT72 [...] at 7 days PERMETHRIN 5 % CREA 764242 PERMETHRIN Inactive WELLBUTRIN 75 MG TABS 2 times daily WELLBUTRIN 75 MG TABS 627151 BUPROPION HCL Inactive CYMBALTA 30 MG CPEP 1 cap by mouth daily CYMBALTA 30 MG CPEP 418370 DULOXETINE HCL Inactive AZITHROMYCIN 500 MG SOLR 1 po q day ALTA THROMYCIN 500 MG SOLR 946484 AZITHROMYCIN Inactive CINNAMON ALPHA LIPOIC AC CMPLX CAPS by mouth twice a d ay in AM by mouth twice a day in PM CINNAMON ALPHA LIPOIC AC CMPLX CAPS ALPHA LIPOIC [id number]-GY-[id number] CAPS Inactive MICARDIS HCT 80-12.5 MG TABS 1 qd MICARDI S HCT 80-12.5 MG TABS 296837 TELMISARTAN-HCTZ Inactive PRAVASTATIN SODIUM 20 MG TABS 1 tablet by mouth daily at bedtime PRAVASTATIN SODIUM 20 MG TABS 457147 PRAVASTATIN SODIUM Inactive FUROSEMIDE 20 MG TABS 1 pill by mouth daily if needed for edema FUROSEMIDE 20 MG TABS 102728 FUROSEMIDE Inactive METFORMIN HCL 500 MG TABS 1 bid METFORMIN HCL 500 MG TABS 623178 METFORMIN HCL Inactive B-12 1000 MCG CAPS 1 tab daily B-12 1000 MCG CAP S CYANOCOBALAMIN Inactive VITAMIN E 200 UNIT CAPS 1 cap po qd VITAMIN E 2 00 UNIT CAPS 0877561 VITAMIN E Inactive [facility] MELATONIN 5-10 MG CR-TABS Take one by mouth daily at bedtime [facility] MELATONIN 5-10 MG CR-TABS MELATONIN-PYRIDOXI NE Inactive AMOXICILLIN 500 MG CAPS 2 po BID x 10 days AMOXICILLIN 500 MG CAPS 401415 AMOXICILLIN Inactive AZITHROMYCIN 250 MG TABS take 2 po today then take 1 po days 2-5 AZITHROMYCIN 250 MG TABS 4556536 AZITHROMYCIN Inactiv e LEVAQUIN 500 MG TABS 1 pill by mouth daily LEVAQUIN 500 MG TABS 022245 LEVOFLOXACIN Inactive AUGMENTIN 875-125 MG TABS 1 pill by mouth twice daily AUGMENTIN 875-125 MG TABS 012758 AMOXICILLIN-POT CLAVULANATE Inacti ve Vital Signs Date [...] ... - Chemistry sodium, serum 142 mmol/L 232-563 2648/02/27 potassium, serum 4.7 mmol/L 3.5-5.2 chloride, serum [...] mg/g{creat} 0-2 9 cholesterol, serum 168 mg/dL 356-074 5667/02/27 triglyceride, serum, fasting 101 mg/dL 30-200 HDL [...] 0.30 mg/dL 0.00-1.00 cholesterol, serum 140 mg/dL 475-370 9462/11/08 triglyceride, serum, fasting 76 mg/dL 30-200 HDL cholesterol, serum 60 mg/dL 32-96 LDL cholesterol, serum 65 mg/dL 0-130 sodium, serum 143 mmol/L 337-105 2053/11/08 potassium, serum 4.8 mmol/L 3.5-5.2 chloride, serum [...] mg/dL Encounters Code Encounter Date Provider Facility CPT-21167 Level 3 Est. Patient 12:56:37 CDT Bertradn marquez DO [facility] CPT-12244 Level 3 Est. Patient 19:12:03 CDT Yoli tolbert MD [facility] CPT-92183 Level 3 Est. Patient 14:36:01 CDT Yoli tolbert MD PhD [facility] CPT-38538 Level 2 Est. Patient 08:00:22 CDT Jcarlos dc MD [facility]-79181 Level 3 Est. Patient 19:06:55 CDT Bertrand marquez [facility] CPT-17281 Level 3 Est. Patient 10:08:23 IT APPLICATION DEVELOPMENT MANAGER Bertrand marquez [facility] CPT-71922 Level 3 Est. Patient 16:37:54 IT APPLICATION DEVELOPMENT MANAGER Bertrand marquez [facility] CPT-31776 Level 3 Est. Patient 11:31:59 IT APPLICATION DEVELOPMENT MANAGER Bertrand marquez [facility] CPT-90731 Level 3 Est. Patient 10:20:08 CDT Adolfo villasenor [facility] CPT-02453 Level 3 Est. Patient 13:45:20 CDT Sanket buckley [facility] CPT-56925 Level 3 Est. Patient 12:51:06 CDT Adolfo villasenor [facility] CPT-15458 Level 3 Est. Patient 11:22:51 IT APPLICATION DEVELOPMENT MANAGER Yoli tolbert MD [facility] CPT-15697 Level 3 Est. Patient 13:33:19 CDT Bertrand marquez [facility] Procedures Code Procedure Name Date Entry Date Standard Desc ription CPT-46977 Knee comp 4/> V 11:58:06 IT APPLICATION DEVELOPMENT MANAGER
--- OUTSIDE RECORDS SUMMARY | 2019-11-13 10:41 | XMS REPORT | Clinical Summary ---
Author Author Admin, Enrique Adamson Organization [facility] Address Unknown Phone Unavailable Allergies, [...] PhD Cough EDEMA LEG 782.3 Active Adolfo SOORIO Edema SHORTNESS OF BREATH 786.05 Resolved Yoli [...] foot Foreign body, ear 931 Resolved Yoli Mercdao MD PhD Foreign body in ear HEALTH [...] Generic Name ND Status Provider Patient Instruction FUROSEMIDE 20 MG TABS 1 pill by mouth daily if needed for edema 201 09/01/01 FUROSEMIDE 11486809956 Active Yoli Mercado MD PhD Active LEVAQUIN 500 MG TABS 1 pill by mouth daily LEVO FLOXACIN 05606467862 No Longer Active Yoli Mercado MD PhD Active CYCLOBENZAPRINE HCL 10 MG TABS Take 1 tab TID PRN for muscle pain CYCLOBENZAPRINE HCL 07728541555 Active Brittni Randall STAND UP COMEDIAN Active AMLODIPINE BESYLATE 5 MG TABS 1 tablet by mouth daily for bl ood pressure AMLODIPINE BESYLATE 30823047446 Active Yoli Mercado MD P hD Active MICARDIS 80 MG TABS 1 tablet daily for blood pressure TELMISARTAN 27184406884 Active Bertrand Patel DO Active MICARDIS HCT 80-12.5 MG TABS 1 qd TELMISARTA N-HCTZ 01557848012 No Longer Active Bertrand Patel DO Active CINNAMON ALPHA LIPOIC AC CMPLX CAPS by mouth twice a d ay in AM by mouth twice a day in PM ALPHA LIPOIC [id number] CAPS 803242 63961 No Longer Active Bertrand Patel DO Active AZITHROMYCIN 500 MG SOLR 1 po q day AZITHROMYCI N 85153140126 No Longer Active Bertrand Patel DO Active CYMBALTA 30 MG CPEP 1 cap by mouth daily DULOXE CATHI HCL 97272782698 No Longer Active Bertrand Patel DO Active CYMBALTA 60 MG CPEP 1 cap by mouth daily DULOXE CATHI HCL 39513401223 Active Bertrand Patel DO Active WELLBUTRIN 75 MG TABS 2 times daily BUPROPION H CL 11653925181 No Longer Active Bertrand Patel DO Active [facility] MELATONIN 5-10 MG CR-TABS Take one by mouth daily at bedtime 20 15/04/08 MELATONIN-PYRIDOXINE 66431862491 Active Bertrand Patel DO Activ e LORTAB 7.5-500 MG TABS take one po Q6 hours HYDROCODONE-ACETAMINOPHEN Active Bertrand Patel DO Active PROAIR HFA 108 (90 BASE) MCG/ACT AERS take one to two puffs po Q4-6 hour prn cough and shortness of breath ALBUTEROL SULFATE 3050835402 1 Active Adolfo OSORIO Active AZITHROMYCIN 250 MG TABS take 2 po today then take 1 po days 2-5 AZITHROMYCIN 97064920143 No Longer Active Adolfo OSORIO Active VITAMIN E 200 UNIT CAPS 1 cap po qd VITAMIN E 6480493832 5 Active Adolfo OSORIO Active PERMETHRIN 5 % CREA apply neck to toes tonight a nd then rinse off in morning. repeat at 7 days PERMETHRIN 30080374933 No Longer Active Adolfo OSORIO Active AMOXICILLIN 500 MG CAPS 2 po BID x 10 days AMOX ICILLIN 54282847547 No Longer Active Yoli Mercado MD PhD Active ALPRAZOLAM 0.5 MG TAB 1 tab by mouth tid ALPRAZOL AM 48477854539 Active Bertrand Patel DO Active PRAVASTATIN SODIUM 20 MG TABS 1 tablet by mouth daily at bedtime 20 05/12/02 PRAVASTATIN SODIUM 82360804028 Active Bertrand Patel DO Active B-12 1000 MCG CAPS 1 tab daily CYANOCOBALAMIN 2230784 2732 Active Bertrand Patel DO Active INSUPEN ULTRAFIN 31G X 6 MM MISC USE DIRECTED 03/04 INSULIN PEN NEEDLE 02336682072 No Longer Active Bertrand Patel DO Active TRANSDERM-SCOP 1.5 MG PT72 1 patch applied behind ear q 3 day 20 04/13/28 SCOPOLAMINE BASE 01680373235 No Longer Active Bertrand Patel DO Active MACRODANTIN 100 MG CAPS one p.o. b.i.d. x2 weeks 03/04 NITROFURANTOIN MACROCRYSTAL 07665647023 No Longer Active Bertrand Patel DO Active METFORMIN HCL 500 MG TABS 1 bid METFORMIN HCL 98544122 898 Active Bertrand Patel DO Active MACRODANTIN 100 MG CAPS one p.o. b.i.d. x2 weeks 03/04 MACRODANTIN 100 MG CAPS 070729 NITROFURANTOIN MACROCRYSTAL Inactive TRANSDERM-SCOP 1.5 MG PT72 [...] at 7 days PERMETHRIN 5 % CREA 190201 PERMETHRIN Inactive WELLBUTRIN 75 MG TABS 2 times daily WELLBUTRIN 75 MG TABS 114881 BUPROPION HCL Inactive CYMBALTA 30 MG CPEP 1 cap by mouth daily CYMBALTA 30 MG CPEP 975862 DULOXETINE HCL Inactive AZITHROMYCIN 500 MG SOLR 1 po q day ALTA THROMYCIN 500 MG SOLR 535580 AZITHROMYCIN Inactive CINNAMON ALPHA LIPOIC AC CMPLX CAPS by mouth twice a d ay in AM by mouth twice a day in PM CINNAMON ALPHA LIPOIC AC CMPLX CAPS ALPHA LIPOIC [id number] CAPS Inactive MICARDIS HCT 80-12.5 MG TABS 1 qd MICARDI S HCT 80-12.5 MG TABS 242014 TELMISARTAN-HCTZ Inactive AMOXICILLIN 500 MG CAPS 2 po BID x 10 days AMOXICILLIN 500 MG CAPS 406262 AMOXICILLIN Inactive AZITHROMYCIN 250 MG TABS take 2 po today then take 1 po days 2-5 AZITHROMYCIN 250 MG TABS 4442118 AZITHROMYCIN Inactiv e LEVAQUIN 500 MG TABS 1 pill by mouth daily LEVAQUIN 500 MG TABS 979317 LEVOFLOXACIN Inactive Vital Signs Date Name Value Unit Range Description blood pressure, diastolic - 8462-4 74 mm[Hg] [...] ... - Chemistry sodium, serum 142 mmol/L 861-708 6722/02/27 potassium, serum 4.7 mmol/L 3.5-5.2 chloride, serum [...] mg/g{creat} 0-2 9 cholesterol, serum 168 mg/dL 093-223 2309/02/27 triglyceride, serum, fasting 101 mg/dL 30-200 HDL [...] 0.30 mg/dL 0.00-1.00 cholesterol, serum 140 mg/dL 457-467 4149/11/08 triglyceride, serum, fasting 76 mg/dL 30-200 HDL cholesterol, serum 60 mg/dL 32-96 LDL cholesterol, serum 65 mg/dL 0-130 sodium, serum 143 mmol/L 214-400 7952/11/08 potassium, serum 4.8 mmol/L 3.5-5.2 chloride, serum [...] mg/dL Encounters Code Encounter Date Provider Facility CPT-24400 Level 3 Est. Patient 19:12:03 CDT Y[facility] tolbert MD [facility] CPT-62051 Level 3 Est. Patient 14:36:01 CDT Yoli tolbert MD [facility] CPT-92058 Level 2 Est. Patient 08:00:22 CDT Jcarlos dc MD [facility] CPT-54391 Level 3 Est. Patient 19:06:55 CDT Bertrand marquez [facility] CPT-13354 Level 3 Est. Patient 10:08:23 MEDICAL EDUCATION COORDINATOR Bertrand marquez [facility] CPT-41642 Level 3 Est. Patient 16:37:54 MEDICAL EDUCATION COORDINATOR Bertrand marquez [facility] CPT-02089 Level 3 Est. Patient 11:31:59 MEDICAL EDUCATION COORDINATOR Bertrand marquez [facility] CPT-56024 Level 3 Est. Patient 10:20:08 CDT Adolfo villasenor [facility] CPT-60298 Level 3 Est. Patient 13:45:20 CDT Sanket Josekelvin buckley [facility] CPT-61590 Level 3 Est. Patient 12:51:06 CDT Adolfo villasenor [facility] CPT-53670 Level 3 Est. Patient 11:22:51 MEDICAL EDUCATION COORDINATOR Yoli tolbert MD [facility] CPT-13142 Level 3 Est. Patient 13:33:19 CDT Bertrand marquez [facility] Procedures Code Procedure Name Date Entry Date Standard Desc ription CPT-33677 Knee comp 4/> V 11:58:06 MEDICAL EDUCATION COORDINATOR
--- OUTSIDE RECORDS SUMMARY | 2019-11-13 10:41 | XMS REPORT | Clinical Summary ---
Author Author Admin, Enrique Adamson Organization [facility] Address Unknown Phone Unavailable Allergies, Adverse [...] HOURS BY MOUTH NEEDED FOR PAIN HYDROCODONE-ACETAMINOPHEN [id number] Acti ve Nirmal Robbins RN Active LORTAB 7.5-500 MG TABS take one po Q6 hours HYDROCODONE-ACETAMINOPHEN No Longer Active Nirmal Robbins RN Active [facility] MELATONIN 5-10 MG CR-TABS Take one by mouth daily at bedtime MELATONIN-PYRIDOXINE 85493308436 No Longer Active Bertrand Patel DO Active VITAMIN E 200 UNIT CAPS 1 cap po qd VITAMIN E 316 15113579 No Longer Active Bertrand Patel DO Active B-12 1000 MCG CAPS 1 tab daily CYANOCOBALAMIN 31 749972104 No Longer Active Bertrand Patel DO Active METFORMIN HCL 500 MG TABS 1 bid METFORMIN HCL 35804010284 No Longer Active Bertrand Patel DO Active FUROSEMIDE 20 MG TABS 1 pill by mouth daily if needed for edema FUROSEMIDE 18928281313 No Longer Active Bertrand Patel DO Act jairo PRAVASTATIN SODIUM 20 MG TABS 1 tablet by mouth daily at bedtime PRAVASTATIN SODIUM 18535577279 No Longer Active Bertrand Patel DO Active AUGMENTIN 875-125 MG TABS 1 pill by mouth twice daily AMOXICILLIN-POT CLAVULANATE 20804326538 No Longer Active Yoli Mercado MD PhD Active LEVAQUIN 500 MG TABS 1 pill by mouth daily LEVO FLOXACIN 94952964099 No Longer Active Yoli Mercado MD PhD Active CYCLOBENZAPRINE HCL 10 MG TABS Take 1 tab TID PRN for muscle pain CYCLOBENZAPRINE HCL 42375214416 Active Brittni Perrin Prakash MACHINE CAGE MAKER Active AMLODIPINE BESYLATE 5 MG TABS 1 tablet by mouth daily for bl ood pressure AMLODIPINE BESYLATE 35689034777 Active Bertrand Patel DO Active MICARDIS 80 MG TABS 1 tablet daily for blood pressure TELMISARTAN 67445076126 Active Bertrand Patel DO Active MICARDIS HCT 80-12.5 MG TABS 1 qd TELMISARTA N-HCTZ 51423135045 No Longer Active Bertrand Patel DO Active CINNAMON ALPHA LIPOIC AC CMPLX CAPS by mouth twice a d ay in AM by mouth twice a day in PM ALPHA LIPOIC [id number] CAPS 083991 50764 No Longer Active Bertrand Patel DO Active AZITHROMYCIN 500 MG SOLR 1 po q day AZITHROMYCI N 04109530781 No Longer Active Bertrand Patel DO Active CYMBALTA 30 MG CPEP 1 cap by mouth daily DULOXE CATHI HCL 03708228266 No Longer Active Bertrand Patel DO Active CYMBALTA 60 MG CPEP 1 cap by mouth daily DULOXE CATHI HCL 14919099043 Active Bertrand Patel DO Active WELLBUTRIN 75 MG TABS 2 times daily BUPROPION H CL 21595991599 No Longer Active Bertrand Patel DO Active PROAIR HFA 108 (90 BASE) MCG/ACT AERS take one to two puffs po Q4-6 hour prn cough and shortness of breath ALBUTEROL SULFATE 7727214276 1 Active Adolfo OSORIO Active AZITHROMYCIN 250 MG TABS take 2 po today then take 1 po days 2-5 AZITHROMYCIN 94946746919 No Longer Active Adolfo OSORIO Active PERMETHRIN 5 % CREA apply neck to toes tonight a nd then rinse off in morning. repeat at 7 days PERMETHRIN 30653471976 No Longer Active Adolfo OSORIO Active AMOXICILLIN 500 MG CAPS 2 po BID x 10 days AMOX ICILLIN 64034562216 No Longer Active Yoli Mercado MD PhD Active ALPRAZOLAM 0.5 MG TAB 1 tab by mouth tid ALPRAZOL AM 57348887369 Active Bertrand Patel DO Active INSUPEN ULTRAFIN 31G X 6 MM MISC USE DIRECTED 03/04 INSULIN PEN NEEDLE 00017453966 No Longer Active Bertrand Patel DO Active TRANSDERM-SCOP 1.5 MG PT72 1 patch applied behind ear q 3 day 20 04/13/28 SCOPOLAMINE BASE 19639931177 No Longer Active Bertrand Patel DO Active MACRODANTIN 100 MG CAPS one p.o. b.i.d. x2 weeks 03/04 NITROFURANTOIN MACROCRYSTAL 82919247916 No Longer Active Bertrand Patel DO Active MACRODANTIN 100 MG CAPS one p.o. b.i.d. x2 weeks 03/04 MACRODANTIN 100 MG CAPS 982657 NITROFURANTOIN MACROCRYSTAL Inactive TRANSDERM-SCOP 1.5 MG PT72 [...] at 7 days PERMETHRIN 5 % CREA 014723 PERMETHRIN Inactive WELLBUTRIN 75 MG TABS 2 times daily WELLBUTRIN 75 MG TABS 503085 BUPROPION HCL Inactive CYMBALTA 30 MG CPEP 1 cap by mouth daily CYMBALTA 30 MG CPE 043377 DULOXETINE HCL Inactive AZITHROMYCIN 500 MG SOLR 1 po q day ALTA THROMYCIN 500 MG SOLR 186771 AZITHROMYCIN Inactive CINNAMON ALPHA LIPOIC AC CMPLX CAPS by mouth twice a d ay in AM by mouth twice a day in PM CINNAMON ALPHA LIPOIC AC CMPLX CAPS ALPHA LIPOIC PDGD-OR-EOAWIIOL CAPS Inactive MICARDIS HCT 80-12.5 MG TABS 1 qd MICARDI S HCT 80-12.5 MG TABS 803130 TELMISARTAN-HCTZ Inactive PRAVASTATIN SODIUM 20 MG TABS 1 tablet by mouth daily at bedtime PRAVASTATIN SODIUM 20 MG TABS 400520 PRAVASTATIN SODIUM Inactive FUROSEMIDE 20 MG TABS 1 pill by mouth daily if needed for edema FUROSEMIDE 20 MG TABS 142506 FUROSEMIDE Inactive METFORMIN HCL 500 MG TABS 1 bid METFORMIN HCL 500 MG TABS 069306 METFORMIN HCL Inactive B-12 1000 MCG CAPS 1 tab daily B-12 1000 MCG CAP S CYANOCOBALAMIN Inactive VITAMIN E 200 UNIT CAPS 1 cap po qd VITAMIN E 2 00 UNIT CAPS 3518595 VITAMIN E Inactive [facility] MELATONIN 5-10 MG CR-TABS Take one by mouth daily at bedtime [facility] MELATONIN 5-10 MG CR-TABS MELATONIN-PYRIDOXI NE Inactive LORTAB 7.5-500 MG TABS take one po Q6 hours LORTAB 7.5-500 MG TABS HYDROCODONE-ACETAMINOPHEN Inactive AMOXICILLIN 500 MG CAPS 2 po BID x 10 days AMOXICILLIN 500 MG CAPS 500099 AMOXICILLIN Inactive AZITHROMYCIN 250 MG TABS take 2 po today then take 1 po days 2-5 AZITHROMYCIN 250 MG TABS 7570626 AZITHROMYCIN Inactiv e LEVAQUIN 500 MG TABS 1 pill by mouth daily LEVAQUIN 500 MG TABS 691430 LEVOFLOXACIN Inactive AUGMENTIN 875-125 MG TABS 1 pill by mouth twice daily AUGMENTIN 875-125 MG TABS 589717 AMOXICILLIN-POT CLAVULANATE Inacti ve Vital Signs Date [...] ... - Chemistry sodium, serum 142 mmol/L 690-115 2876/02/27 potassium, serum 4.7 mmol/L 3.5-5.2 chloride, serum [...] mg/g{creat} 0-2 9 cholesterol, serum 168 mg/dL 687-339 5015/02/27 triglyceride, serum, fasting 101 mg/dL 30-200 HDL [...] CBC - Chemistry sodium, serum 139 mmol/L 408-375 0503/10/31 potassium, serum 4.5 mmol/L 3.5-5.2 chloride, serum [...] mg/dL Encounters Code Encounter Date Provider Facility CPT-41857 Level 3 Est. Patient 12:56:37 CDT Bertrand marquez DO [facility] CPT-84565 Level 3 Est. Patient 19:12:03 CDT Yoli tolbert MD PhD [facility] CPT-97293 Level 3 Est. Patient 14:36:01 CDT Yoli tolbert MD PhD [facility] CPT-45173 Level 2 Est. Patient 08:00:22 CDT Jcarlos dc MD [facility]-60112 Level 3 Est. Patient 19:06:55 CDT Bertrand marquez [facility] CPT-28862 Level 3 Est. Patient 10:08:23 AIRWAY CONTROLLER Bertrand marquez [facility] CPT-86616 Level 3 Est. Patient 16:37:54 AIRWAY CONTROLLER Bertrand marquez [facility] CPT-46780 Level 3 Est. Patient 11:31:59 AIRWAY CONTROLLER Bertrand marquez [facility] CPT-10332 Level 3 Est. Patient 10:20:08 CDT Adolfo villasenor [facility] CPT-93578 Level 3 Est. Patient 13:45:20 CDT Sanket buckley [facility] CPT-56567 Level 3 Est. Patient 12:51:06 CDT Adolfo villasenor [facility] CPT-73453 Level 3 Est. Patient 11:22:51 AIRWAY CONTROLLER Yoli tolbert MD PhD [facility] CPT-05431 Level 3 Est. Patient 13:33:19 CDT Bertrand marquez [facility] Procedures Code Procedure Name Date Entry Date Standard Desc ription CPT-73325 Knee comp 4/> V 11:58:06 AIRWAY CONTROLLER
[2019-11-13] MEDS ORDERED: GLYCOPYRROLATE 0.2 MG/ML (ROBINUL) 2 ML VIAL ONE (10:42)
[2019-11-13] MEDS ORDERED: NEOSTIGMINE 3 MG/3 ML VIAL ONE (10:42)
--- OUTSIDE RECORDS SUMMARY | 2019-11-13 10:42 | XMS REPORT | Clinical Summary ---
Author Author Admin, Enrique Adamson Organization [facility] Address Unknown Phone Unavailable Allergies, Adverse [...] one by mouth daily at bedtime MELATONIN-PYRIDOXINE 13923794750 No Longer Active Bertrand Patel DO Active VITAMIN E 200 UNIT CAPS 1 cap po qd VITAMIN E 316 87781810 No Longer Active Bertrand Patel DO Active B-12 1000 MCG CAPS 1 tab daily CYANOCOBALAMIN 31 458054312 No Longer Active Bertrand Patel DO Active METFORMIN HCL 500 MG TABS 1 bid METFORMIN HCL 55051739441 No Longer Active Bertrand Patel DO Active FUROSEMIDE 20 MG TABS 1 pill by mouth daily if needed for edema FUROSEMIDE 79591063718 No Longer Active Bertrand Patel DO Act jairo PRAVASTATIN SODIUM 20 MG TABS 1 tablet by mouth daily at bedtime PRAVASTATIN SODIUM 50540997830 No Longer Active Bertrand Patel DO Active AUGMENTIN 875-125 MG TABS 1 pill by mouth twice daily AMOXICILLIN-POT CLAVULANATE 85388153253 No Longer Active Yoli Mercado MD PhD Active LEVAQUIN 500 MG TABS 1 pill by mouth daily LEVO FLOXACIN 38207722885 No Longer Active Yoli Mercado MD PhD Active CYCLOBENZAPRINE HCL 10 MG TABS Take 1 tab TID PRN for muscle pain CYCLOBENZAPRINE HCL 42072283154 Active Brittni Randall AUTOMATIC LEHR OPERATOR Active AMLODIPINE BESYLATE 5 MG TABS 1 tablet by mouth daily for bl ood pressure AMLODIPINE BESYLATE 84825347369 Active Yoli Polk hD Active MICARDIS 80 MG TABS 1 tablet daily for blood pressure TELMISARTAN 41717673608 Active Bertrand Patel DO Active MICARDIS HCT 80-12.5 MG TABS 1 qd TELMISARTA N-HCTZ 44387863793 No Longer Active Bertrand Patel DO Active CINNAMON ALPHA LIPOIC AC CMPLX CAPS by mouth twice a d ay in AM by mouth twice a day in PM ALPHA LIPOIC [id number] CAPS 354574 98820 No Longer Active Bertrand Patel DO Active AZITHROMYCIN 500 MG SOLR 1 po q day AZITHROMYCI N 49076163036 No Longer Active Bertrand Patel DO Active CYMBALTA 30 MG CPEP 1 cap by mouth daily DULOXE CATHI HCL 82868496034 No Longer Active Bertrand Patel DO Active CYMBALTA 60 MG CPEP 1 cap by mouth daily DULOXE CATHI HCL 69879412568 Active Bertrand Patel DO Active WELLBUTRIN 75 MG TABS 2 times daily BUPROPION H CL 41197744633 No Longer Active Bertrand Patel DO Active LORTAB 7.5-500 MG TABS take one po Q6 hours HYDROCODONE-ACETAMINOPHEN Active Bertrand Patel DO Active PROAIR HFA 108 (90 BASE) MCG/ACT AERS take one to two puffs po Q4-6 hour prn cough and shortness of breath ALBUTEROL SULFATE 8156917949 1 Active Adolfo OSORIO Active AZITHROMYCIN 250 MG TABS take 2 po today then take 1 po days 2-5 AZITHROMYCIN 51316775677 No Longer Active Adolfo OSORIO Active PERMETHRIN 5 % CREA apply neck to toes tonight a nd then rinse off in morning. repeat at 7 days PERMETHRIN 18542979841 No Longer Active Adolfo OSORIO Active AMOXICILLIN 500 MG CAPS 2 po BID x 10 days AMOX ICILLIN 41734984827 No Longer Active Yoli Mercado MD PhD Active ALPRAZOLAM 0.5 MG TAB 1 tab by mouth tid ALPRAZOL AM 49147458225 Active Bertrand Patel DO Active INSUPEN ULTRAFIN 31G X 6 MM MISC USE DIRECTED 03/04 INSULIN PEN NEEDLE 43476051125 No Longer Active Bertrand Patel DO Active TRANSDERM-SCOP 1.5 MG PT72 1 patch applied behind ear q 3 day 20 04/13/28 SCOPOLAMINE BASE 43169414482 No Longer Active Bertrand Patel DO Active MACRODANTIN 100 MG CAPS one p.o. b.i.d. x2 weeks 03/04 NITROFURANTOIN MACROCRYSTAL 18299639230 No Longer Active Bertrand Patel DO Active MACRODANTIN 100 MG CAPS one p.o. b.i.d. x2 weeks 03/04 MACRODANTIN 100 MG CAPS 523089 NITROFURANTOIN MACROCRYSTAL Inactive TRANSDERM-SCOP 1.5 MG PT72 [...] at 7 days PERMETHRIN 5 % CREA 819148 PERMETHRIN Inactive WELLBUTRIN 75 MG TABS 2 times daily WELLBUTRIN 75 MG TABS 044009 BUPROPION HCL Inactive CYMBALTA 30 MG CPEP 1 cap by mouth daily CYMBALTA 30 MG CPEP 549973 DULOXETINE HCL Inactive AZITHROMYCIN 500 MG SOLR 1 po q day ALTA THROMYCIN 500 MG SOLR 188605 AZITHROMYCIN Inactive CINNAMON ALPHA LIPOIC AC CMPLX CAPS by mouth twice a d ay in AM by mouth twice a day in PM CINNAMON ALPHA LIPOIC AC CMPLX CAPS ALPHA LIPOIC [id number] CAPS Inactive MICARDIS HCT 80-12.5 MG TABS 1 qd MICARDI S HCT 80-12.5 MG TABS 342330 TELMISARTAN-HCTZ Inactive PRAVASTATIN SODIUM 20 MG TABS 1 tablet by mouth daily at bedtime PRAVASTATIN SODIUM 20 MG TABS 562107 PRAVASTATIN SODIUM Inactive FUROSEMIDE 20 MG TABS 1 pill by mouth daily if needed for edema FUROSEMIDE 20 MG TABS 304906 FUROSEMIDE Inactive METFORMIN HCL 500 MG TABS 1 bid METFORMIN HCL 500 MG TABS 284148 METFORMIN HCL Inactive B-12 1000 MCG CAPS 1 tab daily B-12 1000 MCG CAP S CYANOCOBALAMIN Inactive VITAMIN E 200 UNIT CAPS 1 cap po qd VITAMIN E 2 00 UNIT CAPS 9464959 VITAMIN E Inactive [facility] MELATONIN 5-10 MG CR-TABS Take one by mouth daily at bedtime [facility] MELATONIN 5-10 MG CR-TABS MELATONIN-PYRIDOXI NE Inactive AMOXICILLIN 500 MG CAPS 2 po BID x 10 days AMOXICILLIN 500 MG CAPS 497274 AMOXICILLIN Inactive AZITHROMYCIN 250 MG TABS take 2 po today then take 1 po days 2-5 AZITHROMYCIN 250 MG TABS 8587018 AZITHROMYCIN Inactiv e LEVAQUIN 500 MG TABS 1 pill by mouth daily LEVAQUIN 500 MG TABS 018026 LEVOFLOXACIN Inactive AUGMENTIN 875-125 MG TABS 1 pill by mouth twice daily AUGMENTIN 875-125 MG TABS 931214 AMOXICILLIN-POT CLAVULANATE Inacti ve Vital Signs Date [...] ... - Chemistry sodium, serum 142 mmol/L 163-823 0311/02/27 potassium, serum 4.7 mmol/L 3.5-5.2 chloride, serum [...] mg/g{creat} 0-2 9 cholesterol, serum 168 mg/dL 979-114 3094/02/27 triglyceride, serum, fasting 101 mg/dL 30-200 HDL [...] CBC - Chemistry sodium, serum 139 mmol/L 526-646 0323/10/31 potassium, serum 4.5 mmol/L 3.5-5.2 chloride, serum [...] 0.30 mg/dL 0.00-1.00 cholesterol, serum 140 mg/dL 038-461 7751/11/08 triglyceride, serum, fasting 76 mg/dL 30-200 HDL cholesterol, serum 60 mg/dL 32-96 LDL cholesterol, serum 65 mg/dL 0-130 sodium, serum 143 mmol/L 388-002 1530/11/08 potassium, serum 4.8 mmol/L 3.5-5.2 chloride, serum [...] mg/dL Encounters Code Encounter Date Provider Facility CPT-16097 Level 3 Est. Patient 12:56:37 CDT Bertrand marquez [facility] CPT-46308 Level 3 Est. Patient 19:12:03 CDT Yoli tolbert MD [facility]-68558 Level 3 Est. Patient 14:36:01 CDT Yoli tolbert MD [facility] CPT-76698 Level 2 Est. Patient 08:00:22 CDT Jcarlos dc MD [facility]-08525 Level 3 Est. Patient 19:06:55 CDT Bertrand marquez [facility] CPT-75200 Level 3 Est. Patient 10:08:23 BRAN MIXER Bertrand marquez [facility]-05124 Level 3 Est. Patient 16:37:54 BRAN MIXER Bertrand marquez [facility] CPT-36056 Level 3 Est. Patient 11:31:59 BRAN MIXER Bertrand marquez [facility] CPT-54907 Level 3 Est. Patient 10:20:08 CDT Adolfo villasenor [facility] CPT-68566 Level 3 Est. Patient 13:45:20 CDT Sanket buckley [facility] CPT-72006 Level 3 Est. Patient 12:51:06 CDT Adolfo villasenor [facility] CPT-29202 Level 3 Est. Patient 11:22:51 BRAN MIXER Yoli tolbert MD [facility] CPT-12921 Level 3 Est. Patient 13:33:19 CDT Bertrand marquez [facility] Procedures Code Procedure Name Date Entry Date Standard Desc ription CPT-40802 Knee comp 4/> V 11:58:06 BRAN MIXER
--- OUTSIDE RECORDS SUMMARY | 2019-11-13 10:42 | XMS REPORT | Clinical Summary ---
Author Author Admin, Enrique Adamson Organization [facility] Address Unknown Phone Allergies, Adverse Reactions, Alerts [...] TID PRN for muscle pain CYCLOBENZAPRINE HCL 45297482503 Active Brittni Ventura MECHATRONICS ENGINEER Active AMLODIPINE BESYLATE 5 MG TABS 1 tablet by mouth daily for bl ood pressure AMLODIPINE BESYLATE 73393950465 Active Bertrand Patel DO Active MICARDIS 80 MG TABS 1 tablet daily for blood pressure TELMISARTAN 80351939733 Active Bertrand Patel DO Active MICARDIS HCT 80-12.5 MG TABS 1 qd TELMISARTA N-HCTZ 44323615807 No Longer Active Bertrand Patel DO Active FUROSEMIDE 20 MG TABS take one po PRN FUROSEMIDE 65049282078 Active Bertrand Patel DO Active CINNAMON ALPHA LIPOIC AC CMPLX CAPS by mouth twice a d ay in AM by mouth twice a day in PM ALPHA LIPOIC [id number] CAPS 489645 27843 No Longer Active Bertrand Patel DO Active AZITHROMYCIN 500 MG SOLR 1 po q day AZITHROMYCI N 83898325986 No Longer Active Bertrand Patel DO Active CYMBALTA 30 MG CPEP 1 cap by mouth daily DULOXE CATHI HCL 17718254141 No Longer Active Bertrand Patel DO Active CYMBALTA 60 MG CPEP 1 cap by mouth daily DULOXE CATHI HCL 75180279719 Active Bertrand Patel DO Active WELLBUTRIN 75 MG TABS 2 times daily BUPROPION H CL 42702646553 No Longer Active Bertrand Patel DO Active [facility] MELATONIN 5-10 MG CR-TABS Take one by mouth daily at bedtime 20 15/04/08 MELATONIN-PYRIDOXINE 48240971359 Active Bertrand Patel DO Activ e LORTAB 7.5-500 MG TABS take one po Q6 hours HYDROCODONE-ACETAMINOPHEN 41347664860 Active Bertrand Patel DO Active PROAIR HFA 108 (90 BASE) MCG/ACT AERS take one to two puffs po Q4-6 hour prn cough and shortness of breath ALBUTEROL SULFATE 7926305534 1 Active Adolfo OSORIO Active AZITHROMYCIN 250 MG TABS take 2 po today then take 1 po days 2-5 AZITHROMYCIN 13095782461 No Longer Active Adolfo OSORIO Active VITAMIN E 200 UNIT CAPS 1 cap po qd VITAMIN E 2177496266 5 Active Adolfo OSORIO Active PERMETHRIN 5 % CREA apply neck to toes tonight a nd then rinse off in morning. repeat at 7 days PERMETHRIN 22745543802 No Longer Active Adolfo OSORIO Active AMOXICILLIN 500 MG CAPS 2 po BID x 10 days AMOX ICILLIN 35945449254 No Longer Active Yoli Mercado MD PhD Active ALPRAZOLAM 0.5 MG TAB 1 tab by mouth tid ALPRAZOL AM 02101095900 Active Bertrand Patel DO Active PRAVASTATIN SODIUM 20 MG TABS 1 tablet by mouth daily at bedtime 20 05/12/02 PRAVASTATIN SODIUM 75652074862 Active Bertrand Patel DO Active B-12 1000 MCG CAPS 1 tab daily CYANOCOBALAMIN 0081356 2732 Active Bertrand Patel DO Active INSUPEN ULTRAFIN 31G X 6 MM MISC USE DIRECTED 03/04 INSULIN PEN NEEDLE 28055371757 No Longer Active Bertrand Jacklyn Patel DO Active TRANSDERM-SCOP 1.5 MG PT72 1 patch applied behind ear q 3 day 20 04/13/28 SCOPOLAMINE BASE 80692105158 No Longer Active Bertrand Jacklyn Patel DO Active MACRODANTIN 100 MG CAPS one p.o. b.i.d. x2 weeks 03/04 NITROFURANTOIN MACROCRYSTAL 34647452836 No Longer Active Bertrand Jacklyn Patel DO Active METFORMIN HCL 500 MG TABS 1 bid METFORMIN HCL 35368691 898 Active Bertrand Patel DO Active MACRODANTIN 100 MG CAPS one p.o. b.i.d. x2 weeks 03/04 MACRODANTIN 100 MG CAPS 629196 NITROFURANTOIN MACROCRYSTAL Inactive TRANSDERM-SCOP 1.5 MG PT72 [...] at 7 days PERMETHRIN 5 % CREA 026457 PERMETHRIN Inactive WELLBUTRIN 75 MG TABS 2 times daily WELLBUTRIN 75 MG TABS 345587 BUPROPION HCL Inactive CYMBALTA 30 MG CPEP 1 cap by mouth daily CYMBALTA 30 MG CPEP 612174 DULOXETINE HCL Inactive AZITHROMYCIN 500 MG SOLR 1 po q day ALTA THROMYCIN 500 MG SOLR 240332 AZITHROMYCIN Inactive CINNAMON ALPHA LIPOIC AC CMPLX CAPS by mouth twice a d ay in AM by mouth twice a day in PM CINNAMON ALPHA LIPOIC AC CMPLX CAPS ALPHA LIPOIC [id number] CAPS Inactive MICARDIS HCT 80-12.5 MG TABS [address] 80-12.5 MG TABS TELMISARTAN-HCTZ Inactive AMOXICILLIN 500 MG CAPS 2 po BID x 10 days AMOXICILLIN 500 MG CAPS 166516 AMOXICILLIN Inactive AZITHROMYCIN 250 MG TABS take 2 po today then take 1 po days 2-5 AZITHROMYCIN 250 MG TABS 7340412 AZITHROMYCIN Inactiv e Vital Signs Date Name [...] - Chem istry sodium, serum 144 mmol/L 368-032 9153/06/18 potassium, serum 4.4 mmol/L 3.5-5.2 chloride, serum 101 mmol/L 98-107 carbon dioxide, venous blood 31.0 mmol/L 21.0-32 .0 blood glucose 50 mg/dL 65-110 calcium, serum 8.7 mg/dL 8.5-10.1 urea nitrogen, blood 20 mg/dL 7-18 creatinine, serum 1.00 mg/dL 0.60-1.30 Lab Report: CBC, Comp. Metabolic Panel, Thyroid Stimulating Hormone (L), ... - Chemistry sodium, serum 142 mmol/L 582-852 5252/02/27 potassium, serum 4.7 mmol/L 3.5-5.2 chloride, serum [...] mg/g{creat} 0-2 9 cholesterol, serum 168 mg/dL 229-516 7319/02/27 triglyceride, serum, fasting 101 mg/dL 30-200 HDL [...] Pane l, B-Type Natriuretic Peptide - Chemistry carbon dioxide, venous blood 36.6 mmol/L 21.0-32 .0 chloride, serum 101 mmol/L 98-107 potassium, serum 5.0 mmol/L 3.5-5.2 sodium, serum 143 mmol/L 448-264 9641/06/10 hemoglobin A1C, blood, as % of total hemoglobin 6.3 % 4.3-6.0 blood glucose 80 mg/dL 65-110 calcium, serum [...] 0.30 mg/dL 0.00-1.00 cholesterol, serum 140 mg/dL 780-158 6119/11/08 triglyceride, serum, fasting 76 mg/dL 30-200 HDL cholesterol, serum 60 mg/dL 32-96 LDL cholesterol, serum 65 mg/dL 0-130 sodium, serum 143 mmol/L 390-740 5568/11/08 potassium, serum 4.8 mmol/L 3.5-5.2 chloride, serum [...] Negative Negati ve bilirubin, urine Negative Negative urobilinogen, urine, semiquantitative (dipstick) 0.2 Normal leukocyte esterase, urine, by dipstick Negative Negative nitrite, urine, semiquantitative Negative Neg ative urine color Yellow Colorless;Lightyellow;St raw;Yellow appearance, urine Clear Clear specific gravity, urine 1.025 1.000-1.030 pH, urine, semiquantitative 6.0 5.0-8.5 Encounters Code Encounter Date Provider Facility CPT-05781 Level 2 Est. Patient 08:00:22 CDT Jcarlos dc MD [facility] CPT-43132 Level 3 Est. Patient 19:06:55 CDT Bertrand marquez [facility] CPT-24282 Level 3 Est. Patient 10:08:23 MANAGER STRATEGIC Bertrand marquez [facility] CPT-53109 Level 3 Est. Patient 16:37:54 MANAGER STRATEGIC Bertrand marquez [facility] CPT-19251 Level 3 Est. Patient 11:31:59 MANAGER STRATEGIC Bertrand marquez [facility] CPT-89664 Level 3 Est. Patient 10:20:08 CDT Adolfo villasenor [facility] CPT-01965 Level 3 Est. Patient 13:45:20 CDT Sanket buckley [facility] CPT-72437 Level 3 Est. Patient 12:51:06 CDT Adolfo villasenor [facility] CPT-62886 Level 3 Est. Patient 11:22:51 MANAGER STRATEGIC Yoli tolbert MD PhD [facility] CPT-42143 Level 3 Est. Patient 13:33:19 CDT Bertrand marquez [facility] Procedures Code Procedure Name Date Entry Date Standard Desc ription CPT-39599 Knee comp 4/> V 11:58:06 MANAGER STRATEGIC
--- OUTSIDE RECORDS SUMMARY | 2019-11-13 10:42 | XMS REPORT | Clinical Summary ---
Author Author Admin, Enrique Adamson Organization [facility] Address Unknown Phone Allergies, Adverse [...] SCABIES 133.0 Resolved Yoli Mercado MD PhD [facility] DIABETES V18.0 Active Lilia [...] TID PRN for muscle pain CYCLOBENZAPRINE HCL 66275506588 Active Brittni Ventura BRANCH OFFICE ADMINISTRATOR Active AMLODIPINE BESYLATE 5 MG TABS 1 tablet by mouth daily for bl ood pressure AMLODIPINE BESYLATE 41558977829 Active Bertrand Patel DO Active MICARDIS 80 MG TABS 1 tablet daily for blood pressure TELMISARTAN 46070188475 Active Bertrand Patel DO Active MICARDIS HCT 80-12.5 MG TABS 1 qd TELMISARTA N-HCTZ 15301796346 No Longer Active Bertrand Patel DO Active FUROSEMIDE 20 MG TABS take one po PRN FUROSEMIDE 82832400985 Active Bertrand Patel DO Active CINNAMON ALPHA LIPOIC AC CMPLX CAPS by mouth twice a d ay in AM by mouth twice a day in PM ALPHA LIPOIC [id number] CAPS 022763 81641 No Longer Active Bertrand Patel DO Active AZITHROMYCIN 500 MG SOLR 1 po q day AZITHROMYCI N 49810928592 No Longer Active Bertrand Patel DO Active CYMBALTA 30 MG CPEP 1 cap by mouth daily DULOXE CATHI HCL 98602936033 No Longer Active Bertrand Patel DO Active CYMBALTA 60 MG CPEP 1 cap by mouth daily DULOXE CATHI HCL 19729250664 Active Bertrand Patel DO Active WELLBUTRIN 75 MG TABS 2 times daily BUPROPION H CL 89270242666 No Longer Active Bertrand Patel DO Active [facility] MELATONIN 5-10 MG CR-TABS Take one by mouth daily at bedtime 20 15/04/08 MELATONIN-PYRIDOXINE 68001713498 Active Bertrand Patel DO Activ e LORTAB 7.5-500 MG TABS take one po Q6 hours HYDROCODONE-ACETAMINOPHEN 04983150489 Active Bertrand Patel DO Active PROAIR HFA 108 (90 BASE) MCG/ACT AERS take one to two puffs po Q4-6 hour prn cough and shortness of breath ALBUTEROL SULFATE 6100848978 1 Active Adolfo OSORIO Active AZITHROMYCIN 250 MG TABS take 2 po today then take 1 po days 2-5 AZITHROMYCIN 96759152567 No Longer Active Adolfo OSORIO Active VITAMIN E 200 UNIT CAPS 1 cap po qd VITAMIN E 7021877579 5 Active Adolfo OSORIO Active PERMETHRIN 5 % CREA apply neck to toes tonight a nd then rinse off in morning. repeat at 7 days PERMETHRIN 60699330897 No Longer Active Adolfo OSORIO Active AMOXICILLIN 500 MG CAPS 2 po BID x 10 days AMOX ICILLIN 59051534796 No Longer Active Yoli Mercado MD PhD Active ALPRAZOLAM 0.5 MG TAB 1 tab by mouth tid ALPRAZOL AM 63020866859 Active Bertrand Patel DO Active PRAVASTATIN SODIUM 20 MG TABS 1 tablet by mouth daily at bedtime 20 05/12/02 PRAVASTATIN SODIUM 77949900162 Active Bertrand Patel DO Active B-12 1000 MCG CAPS 1 tab daily CYANOCOBALAMIN 7574492 2732 Active Bertrand Patel DO Active INSUPEN ULTRAFIN 31G X 6 MM MISC USE DIRECTED 03/04 INSULIN PEN NEEDLE 31645175214 No Longer Active Bertrand Jacklyn Patel DO Active TRANSDERM-SCOP 1.5 MG PT72 1 patch applied behind ear q 3 day 20 04/13/28 SCOPOLAMINE BASE 81038832838 No Longer Active Bertrand Jacklyn Patel DO Active MACRODANTIN 100 MG CAPS one p.o. b.i.d. x2 weeks 03/04 NITROFURANTOIN MACROCRYSTAL 45201719887 No Longer Active Bertrand Jacklyn Patel DO Active METFORMIN HCL 500 MG TABS 1 bid METFORMIN HCL 71311703 898 Active Bertrand Patel DO Active MACRODANTIN 100 MG CAPS one p.o. b.i.d. x2 weeks 03/04 MACRODANTIN 100 MG CAPS 442602 NITROFURANTOIN MACROCRYSTAL Inactive TRANSDERM-SCOP 1.5 MG PT72 [...] at 7 days PERMETHRIN 5 % CREA 952709 PERMETHRIN Inactive WELLBUTRIN 75 MG TABS 2 times daily WELLBUTRIN 75 MG TABS 601405 BUPROPION HCL Inactive CYMBALTA 30 MG CPEP 1 cap by mouth daily CYMBALTA 30 MG CPEP 592780 DULOXETINE HCL Inactive AZITHROMYCIN 500 MG SOLR 1 po q day ALTA THROMYCIN 500 MG SOLR 065186 AZITHROMYCIN Inactive CINNAMON ALPHA LIPOIC AC CMPLX CAPS by mouth twice a d ay in AM by mouth twice a day in PM CINNAMON ALPHA LIPOIC AC CMPLX CAPS ALPHA LIPOIC [id number] CAPS Inactive MICARDIS HCT 80-12.5 MG TABS 1 qd MICARDI S HCT 80-12.5 MG TABS 345410 TELMISARTAN-HCTZ Inactive AMOXICILLIN 500 MG CAPS 2 po BID x 10 days AMOXICILLIN 500 MG CAPS 956069 AMOXICILLIN Inactive AZITHROMYCIN 250 MG TABS take 2 po today then take 1 po days 2-5 AZITHROMYCIN 250 MG TABS 5314266 AZITHROMYCIN Inactiv e Vital Signs Date Name [...] - Chem istry sodium, serum 144 mmol/L 314-675 5555/06/18 potassium, serum 4.4 mmol/L 3.5-5.2 chloride, serum 101 mmol/L 98-107 carbon dioxide, venous blood 31.0 mmol/L 21.0-32 .0 blood glucose 50 mg/dL 65-110 calcium, serum 8.7 mg/dL 8.5-10.1 urea nitrogen, blood 20 mg/dL 7-18 creatinine, serum 1.00 mg/dL 0.60-1.30 Lab Report: CBC, Comp. Metabolic Panel, Thyroid Stimulating Hormone (L), ... - Chemistry sodium, serum 142 mmol/L 985-488 4934/02/27 potassium, serum 4.7 mmol/L 3.5-5.2 chloride, serum [...] mg/g{creat} 0-2 9 cholesterol, serum 168 mg/dL 174-380 2628/02/27 triglyceride, serum, fasting 101 mg/dL 30-200 HDL [...] 6.3 % 4.3-6.0 sodium, serum 143 mmol/L 653-546 7597/06/10 potassium, serum 5.0 mmol/L 3.5-5.2 chloride, serum [...] 0.30 mg/dL 0.00-1.00 cholesterol, serum 140 mg/dL 296-183 4118/11/08 triglyceride, serum, fasting 76 mg/dL 30-200 HDL cholesterol, serum 60 mg/dL 32-96 LDL cholesterol, serum 65 mg/dL 0-130 sodium, serum 143 mmol/L 525-846 3273/11/08 potassium, serum 4.8 mmol/L 3.5-5.2 chloride, serum [...] 5.0-8.5 Encounters Code Encounter Date Provider Facility CPT-51519 Level 2 Est. Patient 08:00:22 CDT Jcarlos dc MD [facility] CPT-98150 Level 3 Est. Patient 19:06:55 CDT Bertrand marquez [facility] CPT-67731 Level 3 Est. Patient 10:08:23 SENIOR COURTROOM CLERK Bertrand marquez [facility]-44696 Level 3 Est. Patient 16:37:54 SENIOR COURTROOM CLERK Bertrand marquez [facility] CPT-90465 Level 3 Est. Patient 11:31:59 SENIOR COURTROOM CLERK Bertrand marquez [facility] CPT-73475 Level 3 Est. Patient 10:20:08 CDT Adolfo villasenor [facility] CPT-27875 Level 3 Est. Patient 13:45:20 CDT Sanket buckley [facility] CPT-60942 Level 3 Est. Patient 12:51:06 CDT Adolfo villasenor [facility] CPT-26631 Level 3 Est. Patient 11:22:51 SENIOR COURTROOM CLERK Yoli tolbert MD PhD [facility]-85277 Level 3 Est. Patient 13:33:19 CDT Bertrand marquez [facility] Procedures Code Procedure Name Date Entry Date Standard Desc ription CPT-12463 Knee comp 4/> V 11:58:06 SENIOR COURTROOM CLERK
--- OUTSIDE RECORDS SUMMARY | 2019-11-13 10:42 | XMS REPORT | Clinical Summary ---
Author Author Admin, Enrique Adamson Organization [facility] Address Unknown Phone Unavailable Allergies, Adverse [...] sleep apnea (adult) (pediatric) Fatigue 780.79 Active eBrtrand Patel DO Oth er malaise and fatigue [...] one by mouth daily at bedtime MELATONIN-PYRIDOXINE 53459347275 No Longer Active Bertrand Patel DO Active VITAMIN E 200 UNIT CAPS 1 cap po qd VITAMIN E 316 01699283 No Longer Active Bertrand Patel DO Active B-12 1000 MCG CAPS 1 tab daily CYANOCOBALAMIN 31 448974297 No Longer Active Bertrand Patel DO Active METFORMIN HCL 500 MG TABS 1 bid METFORMIN HCL 05100648758 No Longer Active Bertrand Patel DO Active FUROSEMIDE 20 MG TABS 1 pill by mouth daily if needed for edema FUROSEMIDE 50437351237 No Longer Active Bertrand Patel DO Act [place] PRAVASTATIN SODIUM 20 MG TABS 1 tablet by mouth daily at bedtime PRAVASTATIN SODIUM 97577022090 No Longer Active Bertrand Patel DO Active AUGMENTIN 875-125 MG TABS 1 pill by mouth twice daily AMOXICILLIN-POT CLAVULANATE 85042862192 No Longer Active Yoli Mercado MD PhD Active LEVAQUIN 500 MG TABS 1 pill by mouth daily LEVO FLOXACIN 20583041833 No Longer Active Yoli Mercado MD PhD Active CYCLOBENZAPRINE HCL 10 MG TABS Take 1 tab TID PRN for muscle pain CYCLOBENZAPRINE HCL 74481493757 Active Brittni Randall STAPLE SIDE LASTER Active AMLODIPINE BESYLATE 5 MG TABS 1 tablet by mouth daily for bl ood pressure AMLODIPINE BESYLATE 23610292179 Active Yoli Polk hD Active MICARDIS 80 MG TABS 1 tablet daily for blood pressure TELMISARTAN 54479047713 Active Bertrand Patel DO Active MICARDIS HCT 80-12.5 MG TABS 1 qd TELMISARTA N-HCTZ 30846034179 No Longer Active Bertrand Patel DO Active CINNAMON ALPHA LIPOIC AC CMPLX CAPS by mouth twice a d ay in AM by mouth twice a day in PM ALPHA LIPOIC [id number] CAPS 643616 28915 No Longer Active Bertrand Patel DO Active AZITHROMYCIN 500 MG SOLR 1 po q day AZITHROMYCI N 87155134362 No Longer Active Bertrand Patel DO Active CYMBALTA 30 MG CPEP 1 cap by mouth daily DULOXE CATHI HCL 12404716887 No Longer Active Bertrand Patel DO Active CYMBALTA 60 MG CPEP 1 cap by mouth daily DULOXE CATHI HCL 91847338523 Active Bertrand Patel DO Active WELLBUTRIN 75 MG TABS 2 times daily BUPROPION H CL 31685338748 No Longer Active Bertrand Patel DO Active LORTAB 7.5-500 MG TABS take one po Q6 hours HYDROCODONE-ACETAMINOPHEN Active Bertrand Patel DO Active PROAIR HFA 108 (90 BASE) MCG/ACT AERS take one to two puffs po Q4-6 hour prn cough and shortness of breath ALBUTEROL SULFATE 6335670396 1 Active Adolfo OSORIO Active AZITHROMYCIN 250 MG TABS take 2 po today then take 1 po days 2-5 AZITHROMYCIN 93075400098 No Longer Active Adolfo OSORIO Active PERMETHRIN 5 % CREA apply neck to toes tonight a nd then rinse off in morning. repeat at 7 days PERMETHRIN 42362021353 No Longer Active Adolfo OSORIO Active AMOXICILLIN 500 MG CAPS 2 po BID x 10 days AMOX ICILLIN 61896000818 No Longer Active Yoli Mercado MD PhD Active ALPRAZOLAM 0.5 MG TAB 1 tab by mouth tid ALPRAZOL AM 52195795533 Active Bertrand Patel DO Active INSUPEN ULTRAFIN 31G X 6 MM MISC USE DIRECTED 03/04 INSULIN PEN NEEDLE 33386011874 No Longer Active Bertrand Patel DO Active TRANSDERM-SCOP 1.5 MG PT72 1 patch applied behind ear q 3 day 20 04/13/28 SCOPOLAMINE BASE 98712981438 No Longer Active Bertrand Patel DO Active MACRODANTIN 100 MG CAPS one p.o. b.i.d. x2 weeks 03/04 NITROFURANTOIN MACROCRYSTAL 94916007643 No Longer Active Bertrand Patel DO Active MACRODANTIN 100 MG CAPS one p.o. b.i.d. x2 weeks 03/04 MACRODANTIN 100 MG CAPS 109803 NITROFURANTOIN MACROCRYSTAL Inactive TRANSDERM-SCOP 1.5 MG PT72 [...] at 7 days PERMETHRIN 5 % CREA 983396 PERMETHRIN Inactive WELLBUTRIN 75 MG TABS 2 times daily WELLBUTRIN 75 MG TABS 432179 BUPROPION HCL Inactive CYMBALTA 30 MG CPEP 1 cap by mouth daily CYMBALTA 30 MG CPEP 560050 DULOXETINE HCL Inactive AZITHROMYCIN 500 MG SOLR 1 po q day ALTA THROMYCIN 500 MG SOLR 712409 AZITHROMYCIN Inactive CINNAMON ALPHA LIPOIC AC CMPLX CAPS by mouth twice a d ay in AM by mouth twice a day in PM CINNAMON ALPHA LIPOIC AC CMPLX CAPS ALPHA LIPOIC [id number] CAPS Inactive MICARDIS HCT 80-12.5 MG TABS 1 qd MICARDI S HCT 80-12.5 MG TABS 401099 TELMISARTAN-HCTZ Inactive PRAVASTATIN SODIUM 20 MG TABS 1 tablet by mouth daily at bedtime PRAVASTATIN SODIUM 20 MG TABS 073600 PRAVASTATIN SODIUM Inactive FUROSEMIDE 20 MG TABS 1 pill by mouth daily if needed for edema FUROSEMIDE 20 MG TABS 525899 FUROSEMIDE Inactive METFORMIN HCL 500 MG TABS 1 bid METFORMIN HCL 500 MG TABS 334740 METFORMIN HCL Inactive B-12 1000 MCG CAPS 1 tab daily B-12 1000 MCG CAP S CYANOCOBALAMIN Inactive VITAMIN E 200 UNIT CAPS 1 cap po qd VITAMIN E 2 00 UNIT CAPS 0868590 VITAMIN E Inactive [facility] MELATONIN 5-10 MG CR-TABS Take one by mouth daily at bedtime [facility] MELATONIN 5-10 MG CR-TABS MELATONIN-PYRIDOXI NE Inactive AMOXICILLIN 500 MG CAPS 2 po BID x 10 days AMOXICILLIN 500 MG CAPS 179457 AMOXICILLIN Inactive AZITHROMYCIN 250 MG TABS take 2 po today then take 1 po days 2-5 AZITHROMYCIN 250 MG TABS 0246806 AZITHROMYCIN Inactiv e LEVAQUIN 500 MG TABS 1 pill by mouth daily LEVAQUIN 500 MG TABS 440003 LEVOFLOXACIN Inactive AUGMENTIN 875-125 MG TABS 1 pill by mouth twice daily AUGMENTIN 875-125 MG TABS 620278 AMOXICILLIN-POT CLAVULANATE Inacti ve Vital Signs Date [...] ... - Chemistry sodium, serum 142 mmol/L 068-035 1948/02/27 potassium, serum 4.7 mmol/L 3.5-5.2 chloride, serum [...] mg/g{creat} 0-2 9 cholesterol, serum 168 mg/dL 126-358 4659/02/27 triglyceride, serum, fasting 101 mg/dL 30-200 HDL [...] CBC - Chemistry sodium, serum 139 mmol/L 593-887 5661/10/31 potassium, serum 4.5 mmol/L 3.5-5.2 chloride, serum [...] mg/dL Encounters Code Encounter Date Provider Facility CPT-08863 Level 3 Est. Patient 12:56:37 CDT Bertrand marquez [facility] CPT-60242 Level 3 Est. Patient 19:12:03 CDT Yoli tolbert MD PhD [facility] CPT-56852 Level 3 Est. Patient 14:36:01 CDT Yoli tolbert MD PhD [facility] CPT-56742 Level 2 Est. Patient 08:00:22 CDT Jcarlos dc MD [facility] CPT-41216 Level 3 Est. Patient 19:06:55 CDT Bertrand marquez [facility] CPT-06487 Level 3 Est. Patient 10:08:23 NUCLEAR WORKER TECHNICIAN Bertrand marquez [facility] CPT-27480 Level 3 Est. Patient 16:37:54 NUCLEAR WORKER TECHNICIAN Bertrand marquez [facility] CPT-56968 Level 3 Est. Patient 11:31:59 NUCLEAR WORKER TECHNICIAN Bertrand marquez [facility] CPT-30047 Level 3 Est. Patient 10:20:08 CDT Adolfo villasenor [facility] CPT-22721 Level 3 Est. Patient 13:45:20 CDT Sanket buckley [facility] CPT-32511 Level 3 Est. Patient 12:51:06 CDT Adolfo villasenor [facility] CPT-96999 Level 3 Est. Patient 11:22:51 NUCLEAR WORKER TECHNICIAN Yoli tolbert MD PhD [facility] CPT-69225 Level 3 Est. Patient 13:33:19 CDT Bertrand marquez [facility] Procedures Code Procedure Name Date Entry Date Standard Desc ription CPT-11407 Knee comp 4/> V 11:58:06 NUCLEAR WORKER TECHNICIAN
--- OUTSIDE RECORDS SUMMARY | 2019-11-13 10:43 | XMS REPORT | Clinical Summary ---
Author Author Admin, Enrique Adamson Organization [facility] Address Unknown Phone Unavailable Allergies, [...] one by mouth daily at bedtime MELATONIN-PYRIDOXINE 13883900535 No Longer Active Bertrand Patel DO Active VITAMIN E 200 UNIT CAPS 1 cap po qd VITAMIN E 316 97276629 No Longer Active Bertrand Patel DO Active B-12 1000 MCG CAPS 1 tab daily CYANOCOBALAMIN 31 163984828 No Longer Active Bertrand Patel DO Active METFORMIN HCL 500 MG TABS 1 bid METFORMIN HCL 61792813596 No Longer Active Bertrand Patel DO Active FUROSEMIDE 20 MG TABS 1 pill by mouth daily if needed for edema FUROSEMIDE 53925073974 No Longer Active Bertrand Patel DO Act j[place] PRAVASTATIN SODIUM 20 MG TABS 1 tablet by mouth daily at bedtime PRAVASTATIN SODIUM 47488167801 No Longer Active Bertrand Patel DO Active AUGMENTIN 875-125 MG TABS 1 pill by mouth twice daily AMOXICILLIN-POT CLAVULANATE 65239099718 No Longer Active Yoli Mercado MD PhD Active LEVAQUIN 500 MG TABS 1 pill by mouth daily LEVO FLOXACIN 26846713361 No Longer Active Yoli Mercado MD PhD Active CYCLOBENZAPRINE HCL 10 MG TABS Take 1 tab TID PRN for muscle pain CYCLOBENZAPRINE HCL 10165824730 Active Brittni Fernándezum INFORMATICA ARCHITECT Active AMLODIPINE BESYLATE 5 MG TABS 1 tablet by mouth daily for bl ood pressure AMLODIPINE BESYLATE 71769451730 Active Yoli Mercado MD P hD Active MICARDIS 80 MG TABS 1 tablet daily for blood pressure TELMISARTAN 67213789280 Active Bertrand Paetl DO Active MICARDIS HCT 80-12.5 MG TABS 1 qd TELMISARTA N-HCTZ 78383660064 No Longer Active Bertrand Patel DO Active CINNAMON ALPHA LIPOIC AC CMPLX CAPS by mouth twice a d ay in AM by mouth twice a day in PM ALPHA LIPOIC [id number] CAPS 377039 51926 No Longer Active Bertrand Patel DO Active AZITHROMYCIN 500 MG SOLR 1 po q day AZITHROMYCI N 83125107784 No Longer Active Bertrand Patel DO Active CYMBALTA 30 MG CPEP 1 cap by mouth daily DULOXE CATHI HCL 18782970281 No Longer Active Bertrand Patel DO Active CYMBALTA 60 MG CPEP 1 cap by mouth daily DULOXE CATHI HCL 80107334660 Active Bertrand Patel DO Active WELLBUTRIN 75 MG TABS 2 times daily BUPROPION H CL 74655316897 No Longer Active Bertrand Patel DO Active LORTAB 7.5-500 MG TABS take one po Q6 hours HYDROCODONE-ACETAMINOPHEN Active Bertrand Patel DO Active PROAIR HFA 108 (90 BASE) MCG/ACT AERS take one to two puffs po Q4-6 hour prn cough and shortness of breath ALBUTEROL SULFATE 4860739673 1 Active Adolfo OSORIO Active AZITHROMYCIN 250 MG TABS take 2 po today then take 1 po days 2-5 AZITHROMYCIN 34964512977 No Longer Active Adolfo OSORIO Active PERMETHRIN 5 % CREA apply neck to toes tonight a nd then rinse off in morning. repeat at 7 days PERMETHRIN 10548440594 No Longer Active Adolfo OSORIO Active AMOXICILLIN 500 MG CAPS 2 po BID x 10 days AMOX ICILLIN 27698257917 No Longer Active Yoli Mercado MD PhD Active ALPRAZOLAM 0.5 MG TAB 1 tab by mouth tid ALPRAZOL AM 84368419745 Active Bertrand Patel DO Active INSUPEN ULTRAFIN 31G X 6 MM MISC USE DIRECTED 03/04 INSULIN PEN NEEDLE 92290660028 No Longer Active Bertrand Patel DO Active TRANSDERM-SCOP 1.5 MG PT72 1 patch applied behind ear q 3 day 20 04/13/28 SCOPOLAMINE BASE 16126578939 No Longer Active Bertrand Patel DO Active MACRODANTIN 100 MG CAPS one p.o. b.i.d. x2 weeks 03/04 NITROFURANTOIN MACROCRYSTAL 67803638542 No Longer Active Bertrand Patel DO Active MACRODANTIN 100 MG CAPS one p.o. b.i.d. x2 weeks 03/04 MACRODANTIN 100 MG CAPS 752404 NITROFURANTOIN MACROCRYSTAL Inactive TRANSDERM-SCOP 1.5 MG PT72 [...] at 7 days PERMETHRIN 5 % CREA 144304 PERMETHRIN Inactive WELLBUTRIN 75 MG TABS 2 times daily WELLBUTRIN 75 MG TABS 015160 BUPROPION HCL Inactive CYMBALTA 30 MG CPEP 1 cap by mouth daily CYMBALTA 30 MG CPEP 753516 DULOXETINE HCL Inactive AZITHROMYCIN 500 MG SOLR 1 po q day ALTA THROMYCIN 500 MG SOLR 959862 AZITHROMYCIN Inactive CINNAMON ALPHA LIPOIC AC CMPLX CAPS by mouth twice a d ay in AM by mouth twice a day in PM CINNAMON ALPHA LIPOIC AC CMPLX CAPS ALPHA LIPOIC [id number] CAPS Inactive MICARDIS HCT 80-12.5 MG TABS 1 qd MICARDI S HCT 80-12.5 MG TABS 048176 TELMISARTAN-HCTZ Inactive PRAVASTATIN SODIUM 20 MG TABS 1 tablet by mouth daily at bedtime PRAVASTATIN SODIUM 20 MG TABS 745009 PRAVASTATIN SODIUM Inactive FUROSEMIDE 20 MG TABS 1 pill by mouth daily if needed for edema FUROSEMIDE 20 MG TABS 182079 FUROSEMIDE Inactive METFORMIN HCL 500 MG TABS 1 bid METFORMIN HCL 500 MG TABS 217448 METFORMIN HCL Inactive B-12 1000 MCG CAPS 1 tab daily B-12 1000 MCG CAP S CYANOCOBALAMIN Inactive VITAMIN E 200 UNIT CAPS 1 cap po qd VITAMIN E 2 00 UNIT CAPS 1729716 VITAMIN E Inactive [facility] MELATONIN 5-10 MG CR-TABS Take one by mouth daily at bedtime [facility] MELATONIN 5-10 MG CR-TABS MELATONIN-PYRIDOXI NE Inactive AMOXICILLIN 500 MG CAPS 2 po BID x 10 days AMOXICILLIN 500 MG CAPS 251077 AMOXICILLIN Inactive AZITHROMYCIN 250 MG TABS take 2 po today then take 1 po days 2-5 AZITHROMYCIN 250 MG TABS 6436427 AZITHROMYCIN Inactiv e LEVAQUIN 500 MG TABS 1 pill by mouth daily LEVAQUIN 500 MG TABS 048837 LEVOFLOXACIN Inactive AUGMENTIN 875-125 MG TABS 1 pill by mouth twice daily AUGMENTIN 875-125 MG TABS 612753 AMOXICILLIN-POT CLAVULANATE Inacti ve Vital Signs Date [...] ... - Chemistry sodium, serum 142 mmol/L 081-893 0422/02/27 potassium, serum 4.7 mmol/L 3.5-5.2 chloride, serum [...] mg/g{creat} 0-2 9 cholesterol, serum 168 mg/dL 493-566 5032/02/27 triglyceride, serum, fasting 101 mg/dL 30-200 HDL [...] CBC - Chemistry sodium, serum 139 mmol/L 880-153 1517/10/31 potassium, serum 4.5 mmol/L 3.5-5.2 chloride, serum [...] 0.30 mg/dL 0.00-1.00 cholesterol, serum 140 mg/dL 726-474 9372/11/08 triglyceride, serum, fasting 76 mg/dL 30-200 HDL cholesterol, serum 60 mg/dL 32-96 LDL cholesterol, serum 65 mg/dL 0-130 sodium, serum 143 mmol/L 731-027 5696/11/08 potassium, serum 4.8 mmol/L 3.5-5.2 chloride, serum [...] mg/dL Encounters Code Encounter Date Provider Facility CPT-51289 Level 3 Est. Patient 12:56:37 CDT Bertrand marquez DO [facility] CPT-37930 Level 3 Est. Patient 19:12:03 CDT Yoli tolbert MD [facility] CPT-77634 Level 3 Est. Patient 14:36:01 CDT Yoli tolbert MD PhD [facility] CPT-50964 Level 2 Est. Patient 08:00:22 CDT Jcarlos dc MD [facility]-03311 Level 3 Est. Patient 19:06:55 CDT Bertrand marquez [facility] CPT-77885 Level 3 Est. Patient 10:08:23 QUALITY TECHNICIAN Bertrand marquez [facility] CPT-81532 Level 3 Est. Patient 16:37:54 QUALITY TECHNICIAN Bertrand marquez [facility] CPT-49986 Level 3 Est. Patient 11:31:59 QUALITY TECHNICIAN Bertrand marquez [facility] CPT-93683 Level 3 Est. Patient 10:20:08 CDT Adolfo villasenor [facility] CPT-14207 Level 3 Est. Patient 13:45:20 CDT Sanket buckley [facility] CPT-81583 Level 3 Est. Patient 12:51:06 CDT Adolfo villasenor [facility] CPT-88176 Level 3 Est. Patient 11:22:51 QUALITY TECHNICIAN Yoli tolbert MD [facility] CPT-25062 Level 3 Est. Patient 13:33:19 CDT Bertrand marquez [facility] Procedures Code Procedure Name Date Entry Date Standard Desc ription CPT-24761 Knee comp 4/> V 11:58:06 QUALITY TECHNICIAN
--- OUTSIDE RECORDS SUMMARY | 2019-11-13 10:43 | XMS REPORT | Clinical Summary ---
Author Author Admin, Enrique Adamson Organization [facility] Address Unknown Phone Allergies, Adverse Reactions, [...] SCABIES 133.0 Resolved Yoli Mercado MD PhD [facility] DIABETES V18.0 Active Lilia [...] Inactive oYli Mercado MD PhD 201 07/14/20 Pharyngitis-Acute ICD-462 Inactive Bertrand Redmond DO Medication List Medication Instructions Start Date Stop Date Generic Name NDC Status Provider Patient Instruction CYCLOBENZAPRINE HCL 10 MG TABS Take 1 tab TID PRN for muscle pain CYCLOBENZAPRINE HCL 02752007247 Active Brittni Ventura BOAT MASTER Active AMLODIPINE BESYLATE 5 MG TABS 1 tablet by mouth daily for bl ood pressure AMLODIPINE BESYLATE 06193111793 Active Bertrand Patel DO Active MICARDIS 80 MG TABS 1 tablet daily for blood pressure TELMISARTAN 53795389089 Active Bertrand Patel DO Active MICARDIS HCT 80-12.5 MG TABS 1 qd TELMISARTA N-HCTZ 33916245219 No Longer Active Bertrand Patel DO Active FUROSEMIDE 20 MG TABS take one po PRN FUROSEMIDE 71632826972 Active Bertrand Patel DO Active CINNAMON ALPHA LIPOIC AC CMPLX CAPS by mouth twice a d ay in AM by mouth twice a day in PM ALPHA LIPOIC [id number] CAPS 765475 56337 No Longer Active Bertrand Patel DO Active AZITHROMYCIN 500 MG SOLR 1 po q day AZITHROMYCI N 70893477182 No Longer Active Bertrand Patel DO Active CYMBALTA 30 MG CPEP 1 cap by mouth daily DULOXE CATHI HCL 24621221097 No Longer Active Bertrand Patel DO Active CYMBALTA 60 MG CPEP 1 cap by mouth daily DULOXE CATHI HCL 66188739211 Active Bertrand Patel DO Active WELLBUTRIN 75 MG TABS 2 times daily BUPROPION H CL 99586375003 No Longer Active Bertrand Patel DO Active [facility] MELATONIN 5-10 MG CR-TABS Take one by mouth daily at bedtime 20 15/04/08 MELATONIN-PYRIDOXINE 51727710561 Active Bertrand Ptael DO Activ e LORTAB 7.5-500 MG TABS take one po Q6 hours HYDROCODONE-ACETAMINOPHEN 98410000849 Active Bertrand Patel DO Active PROAIR HFA 108 (90 BASE) MCG/ACT AERS take one to two puffs po Q4-6 hour prn cough and shortness of breath ALBUTEROL SULFATE 9793661459 1 Active Adolfo OSORIO Active AZITHROMYCIN 250 MG TABS take 2 po today then take 1 po days 2-5 AZITHROMYCIN 22811445085 No Longer Active Adolfo OSORIO Active VITAMIN E 200 UNIT CAPS 1 cap po qd VITAMIN E 8480478315 5 Active Adolfo OSORIO Active PERMETHRIN 5 % CREA apply neck to toes tonight a nd then rinse off in morning. repeat at 7 days PERMETHRIN 71533268715 No Longer Active Adolfo OSORIO Active AMOXICILLIN 500 MG CAPS 2 po BID x 10 days AMOX ICILLIN 84106943641 No Longer Active Yoli Mercado MD PhD Active ALPRAZOLAM 0.5 MG TAB 1 tab by mouth tid ALPRAZOL AM 11512462794 Active Bertrand Patel DO Active PRAVASTATIN SODIUM 20 MG TABS 1 tablet by mouth daily at bedtime 20 05/12/02 PRAVASTATIN SODIUM 31149728935 Active Bertrand Patel DO Active B-12 1000 MCG CAPS 1 tab daily CYANOCOBALAMIN 2439377 2732 Active Bertrand Patel DO Active INSUPEN ULTRAFIN 31G X 6 MM MISC USE DIRECTED 03/04 INSULIN PEN NEEDLE 94350673312 No Longer Active Bertrand Jacklyn Patel DO Active TRANSDERM-SCOP 1.5 MG PT72 1 patch applied behind ear q 3 day 20 04/13/28 SCOPOLAMINE BASE 78313873685 No Longer Active Bertrand Jacklyn Patel DO Active MACRODANTIN 100 MG CAPS one p.o. b.i.d. x2 weeks 03/04 NITROFURANTOIN MACROCRYSTAL 31487438873 No Longer Active Bertrand Jacklyn Patel DO Active METFORMIN HCL 500 MG TABS 1 bid METFORMIN HCL 14366729 898 Active Bertrand Patel DO Active MACRODANTIN 100 MG CAPS one p.o. b.i.d. x2 weeks 03/04 MACRODANTIN 100 MG CAPS 735420 NITROFURANTOIN MACROCRYSTAL Inactive TRANSDERM-SCOP 1.5 MG PT72 [...] at 7 days PERMETHRIN 5 % CREA 533968 PERMETHRIN Inactive WELLBUTRIN 75 MG TABS 2 times daily WELLBUTRIN 75 MG TABS 735859 BUPROPION HCL Inactive CYMBALTA 30 MG CPEP 1 cap by mouth daily CYMBALTA 30 MG CPEP 661945 DULOXETINE HCL Inactive AZITHROMYCIN 500 MG SOLR 1 po q day ALTA THROMYCIN 500 MG SOLR 685410 AZITHROMYCIN Inactive CINNAMON ALPHA LIPOIC AC CMPLX CAPS by mouth twice a d ay in AM by mouth twice a day in PM CINNAMON ALPHA LIPOIC AC CMPLX CAPS ALPHA LIPOIC [id number] CAPS Inactive MICARDIS HCT 80-12.5 MG TABS 1 qd MICARDI S HCT 80-12.5 MG TABS 697902 TELMISARTAN-HCTZ Inactive AMOXICILLIN 500 MG CAPS 2 po BID x 10 days AMOXICILLIN 500 MG CAPS 136506 AMOXICILLIN Inactive AZITHROMYCIN 250 MG TABS take 2 po today then take 1 po days 2-5 AZITHROMYCIN 250 MG TABS 1335578 AZITHROMYCIN Inactiv e Vital Signs Date Name [...] - Chem istry sodium, serum 144 mmol/L 831-985 5611/06/18 potassium, serum 4.4 mmol/L 3.5-5.2 chloride, serum 101 mmol/L 98-107 carbon dioxide, venous blood 31.0 mmol/L 21.0-32 .0 blood glucose 50 mg/dL 65-110 calcium, serum 8.7 mg/dL 8.5-10.1 urea nitrogen, blood 20 mg/dL 7-18 creatinine, serum 1.00 mg/dL 0.60-1.30 Lab Report: CBC, Comp. Metabolic Panel, Thyroid Stimulating Hormone (L), ... - Chemistry sodium, serum 142 mmol/L 118-433 9377/02/27 potassium, serum 4.7 mmol/L 3.5-5.2 chloride, serum [...] mg/g{creat} 0-2 9 cholesterol, serum 168 mg/dL 174-189 8685/02/27 triglyceride, serum, fasting 101 mg/dL 30-200 HDL [...] 6.3 % 4.3-6.0 sodium, serum 143 mmol/L 969-014 5834/06/10 potassium, serum 5.0 mmol/L 3.5-5.2 chloride, serum [...] 0.30 mg/dL 0.00-1.00 cholesterol, serum 140 mg/dL 788-621 9902/11/08 triglyceride, serum, fasting 76 mg/dL 30-200 HDL cholesterol, serum 60 mg/dL 32-96 LDL cholesterol, serum 65 mg/dL 0-130 sodium, serum 143 mmol/L 463-133 3516/11/08 potassium, serum 4.8 mmol/L 3.5-5.2 chloride, serum [...] 5.0-8.5 Encounters Code Encounter Date Provider Facility CPT-78408 Level 2 Est. Patient 08:00:22 CDT Jcarlos dc MD [facility] CPT-67356 Level 3 Est. Patient 19:06:55 CDT Bertrand marquez [facility] CPT-82140 Level 3 Est. Patient 10:08:23 INVENTORY CONTROL SPECIALIST Bertrand marquez -03869 Level 3 Est. Patient 16:37:54 INVENTORY CONTROL SPECIALIST Bertrand marquez [facility] CPT-67711 Level 3 Est. Patient 11:31:59 INVENTORY CONTROL SPECIALIST Bertrand marquez [facility] CPT-24747 Level 3 Est. Patient 10:20:08 CDT Adolfo villasenor [facility] CPT-83879 Level 3 Est. Patient 13:45:20 CDT Sanket buckley [facility] CPT-76471 Level 3 Est. Patient 12:51:06 CDT Adolfo villasenor [facility] CPT-46467 Level 3 Est. Patient 11:22:51 INVENTORY CONTROL SPECIALIST Yoli tolbert MD PhD [facility]-11339 Level 3 Est. Patient 13:33:19 CDT Bertrand marquez [facility] Procedures Code Procedure Name Date Entry Date Standard Desc ription CPT-23784 Knee comp 4/> V 11:58:06 INVENTORY CONTROL SPECIALIST
--- OUTSIDE RECORDS SUMMARY | 2019-11-13 10:43 | XMS REPORT | Clinical Summary ---
Author Author Admin, Enrique Adamson Organization [facility] Address Unknown Phone Unavailable Allergies, [...] one by mouth daily at bedtime MELATONIN-PYRIDOXINE 92831249282 No Longer Active Bertrand Patel DO Active VITAMIN E 200 UNIT CAPS 1 cap po qd VITAMIN E 316 81889857 No Longer Active Bertrand Patel DO Active B-12 1000 MCG CAPS 1 tab daily CYANOCOBALAMIN 31 988520284 No Longer Active Bertrand Patel DO Active METFORMIN HCL 500 MG TABS 1 bid METFORMIN HCL 43294440006 No Longer Active Bertrand Patel DO Active FUROSEMIDE 20 MG TABS 1 pill by mouth daily if needed for edema FUROSEMIDE 99308743050 No Longer Active Bertrand Patel DO Act [place] PRAVASTATIN SODIUM 20 MG TABS 1 tablet by mouth daily at bedtime PRAVASTATIN SODIUM 37492517621 No Longer Active Bertrand Patel DO Active AUGMENTIN 875-125 MG TABS 1 pill by mouth twice daily AMOXICILLIN-POT CLAVULANATE 29640110645 No Longer Active Yoli Mercado MD PhD Active LEVAQUIN 500 MG TABS 1 pill by mouth daily LEVO FLOXACIN 39542029107 No Longer Active Yoli Mercado MD PhD Active CYCLOBENZAPRINE HCL 10 MG TABS Take 1 tab TID PRN for muscle pain CYCLOBENZAPRINE HCL 42443387056 Active Brittni Randall NUCLEAR MEDICAL TECHNOLOGIST Active AMLODIPINE BESYLATE 5 MG TABS 1 tablet by mouth daily for bl ood pressure AMLODIPINE BESYLATE 83854780714 Active Yoli Polk hD Active MICARDIS 80 MG TABS 1 tablet daily for blood pressure TELMISARTAN 60989231206 Active Bertrand Patel DO Active MICARDIS HCT 80-12.5 MG TABS 1 qd TELMISARTA N-HCTZ 12871268010 No Longer Active Bertrand Patel DO Active CINNAMON ALPHA LIPOIC AC CMPLX CAPS by mouth twice a d ay in AM by mouth twice a day in PM ALPHA LIPOIC [id number] CAPS 235341 91072 No Longer Active Bertrand Patel DO Active AZITHROMYCIN 500 MG SOLR 1 po q day AZITHROMYCI N 13738759670 No Longer Active Bertrand Patel DO Active CYMBALTA 30 MG CPEP 1 cap by mouth daily DULOXE CATHI HCL 06088890983 No Longer Active Bertrand Patel DO Active CYMBALTA 60 MG CPEP 1 cap by mouth daily DULOXE CATHI HCL 17857884681 Active Bertrand Patel DO Active WELLBUTRIN 75 MG TABS 2 times daily BUPROPION H CL 89154117111 No Longer Active Bertrand Patel DO Active LORTAB 7.5-500 MG TABS take one po Q6 hours HYDROCODONE-ACETAMINOPHEN Active Bertrand Patel DO Active PROAIR HFA 108 (90 BASE) MCG/ACT AERS take one to two puffs po Q4-6 hour prn cough and shortness of breath ALBUTEROL SULFATE 7085568743 1 Active Adolfo OSORIO Active AZITHROMYCIN 250 MG TABS take 2 po today then take 1 po days 2-5 AZITHROMYCIN 22916463810 No Longer Active Adolfo OSORIO Active PERMETHRIN 5 % CREA apply neck to toes tonight a nd then rinse off in morning. repeat at 7 days PERMETHRIN 12522457575 No Longer Active Adolfo OSORIO Active AMOXICILLIN 500 MG CAPS 2 po BID x 10 days AMOX ICILLIN 18760347548 No Longer Active Yoli Mercado MD PhD Active ALPRAZOLAM 0.5 MG TAB 1 tab by mouth tid ALPRAZOL AM 64077940431 Active Bertrand Patel DO Active INSUPEN ULTRAFIN 31G X 6 MM MISC USE DIRECTED 03/04 INSULIN PEN NEEDLE 41758834395 No Longer Active Bertrand Patel DO Active TRANSDERM-SCOP 1.5 MG PT72 1 patch applied behind ear q 3 day 20 04/13/28 SCOPOLAMINE BASE 62217008076 No Longer Active Bertrand Patel DO Active MACRODANTIN 100 MG CAPS one p.o. b.i.d. x2 weeks 03/04 NITROFURANTOIN MACROCRYSTAL 51425554125 No Longer Active Bertrand Patel DO Active MACRODANTIN 100 MG CAPS one p.o. b.i.d. x2 weeks 03/04 MACRODANTIN 100 MG CAPS 025903 NITROFURANTOIN MACROCRYSTAL Inactive TRANSDERM-SCOP 1.5 MG PT72 [...] at 7 days PERMETHRIN 5 % CREA 798162 PERMETHRIN Inactive WELLBUTRIN 75 MG TABS 2 times daily WELLBUTRIN 75 MG TABS 826551 BUPROPION HCL Inactive CYMBALTA 30 MG CPEP 1 cap by mouth daily CYMBALTA 30 MG CPEP 788801 DULOXETINE HCL Inactive AZITHROMYCIN 500 MG SOLR 1 po q day ALTA THROMYCIN 500 MG SOLR 777596 AZITHROMYCIN Inactive CINNAMON ALPHA LIPOIC AC CMPLX CAPS by mouth twice a d ay in AM by mouth twice a day in PM CINNAMON ALPHA LIPOIC AC CMPLX CAPS ALPHA LIPOIC [id number] CAPS Inactive MICARDIS HCT 80-12.5 MG TABS 1 qd MICARDI S HCT 80-12.5 MG TABS 140119 TELMISARTAN-HCTZ Inactive PRAVASTATIN SODIUM 20 MG TABS 1 tablet by mouth daily at bedtime PRAVASTATIN SODIUM 20 MG TABS 766715 PRAVASTATIN SODIUM Inactive FUROSEMIDE 20 MG TABS 1 pill by mouth daily if needed for edema FUROSEMIDE 20 MG TABS 616809 FUROSEMIDE Inactive METFORMIN HCL 500 MG TABS 1 bid METFORMIN HCL 500 MG TABS 777488 METFORMIN HCL Inactive B-12 1000 MCG CAPS 1 tab daily B-12 1000 MCG CAP S CYANOCOBALAMIN Inactive VITAMIN E 200 UNIT CAPS 1 cap po qd VITAMIN E 2 00 UNIT CAPS 0264597 VITAMIN E Inactive [facility] MELATONIN 5-10 MG CR-TABS Take one by mouth daily at bedtime [facility] MELATONIN 5-10 MG CR-TABS MELATONIN-PYRIDOXI NE Inactive AMOXICILLIN 500 MG CAPS 2 po BID x 10 days AMOXICILLIN 500 MG CAPS 970504 AMOXICILLIN Inactive AZITHROMYCIN 250 MG TABS take 2 po today then take 1 po days 2-5 AZITHROMYCIN 250 MG TABS 5602619 AZITHROMYCIN Inactiv e LEVAQUIN 500 MG TABS 1 pill by mouth daily LEVAQUIN 500 MG TABS 165927 LEVOFLOXACIN Inactive AUGMENTIN 875-125 MG TABS 1 pill by mouth twice daily AUGMENTIN 875-125 MG TABS 568709 AMOXICILLIN-POT CLAVULANATE Inacti ve Vital Signs Date [...] ... - Chemistry sodium, serum 142 mmol/L 349-342 7382/02/27 potassium, serum 4.7 mmol/L 3.5-5.2 chloride, serum [...] mg/g{creat} 0-2 9 cholesterol, serum 168 mg/dL 245-402 0732/02/27 triglyceride, serum, fasting 101 mg/dL 30-200 HDL [...] CBC - Chemistry sodium, serum 139 mmol/L 029-614 1637/10/31 potassium, serum 4.5 mmol/L 3.5-5.2 chloride, serum [...] 6.6 % 4.3-6.0 cholesterol, serum 140 mg/dL 992-858 5223/11/08 triglyceride, serum, fasting 76 mg/dL 30-200 HDL cholesterol, serum 60 mg/dL 32-96 LDL cholesterol, serum 65 mg/dL 0-130 sodium, serum 143 mmol/L 343-875 5720/11/08 potassium, serum 4.8 mmol/L 3.5-5.2 chloride, serum [...] mg/dL Encounters Code Encounter Date Provider Facility CPT-68118 Level 3 Est. Patient 12:56:37 CDT Bertrand marquez [facility] CPT-35662 Level 3 Est. Patient 19:12:03 CDT Yoli tolbert MD [facility] CPT-18135 Level 3 Est. Patient 14:36:01 CDT Yoli tolbert [id number] Level 2 Est. Patient 08:00:22 CDT Jcarlos dc MD [facility]-65507 Level 3 Est. Patient 19:06:55 CDT Bertrand marquez [facility] CPT-45260 Level 3 Est. Patient 10:08:23 PUMP ERECTOR HELPER Bertrand marquez [facility] CPT-14795 Level 3 Est. Patient 16:37:54 PUMP ERECTOR HELPER Bertrand marquez [facility] CPT-39173 Level 3 Est. Patient 11:31:59 PUMP ERECTOR HELPER Bertrand marquez [facility] CPT-49668 Level 3 Est. Patient 10:20:08 CDT Adolfo villasenor [facility] CPT-10388 Level 3 Est. Patient 13:45:20 CDT Sanket buckley [facility] CPT-68906 Level 3 Est. Patient 12:51:06 CDT Adolfo villasenor [facility] CPT-43352 Level 3 Est. Patient 11:22:51 PUMP ERECTOR HELPER Yoli tolbert MD [facility]38847 Level 3 Est. Patient 13:33:19 CDT Bertrand marquez [facility] Procedures Code Procedure Name Date Entry Date Standard Desc ription CPT-15968 Knee comp 4/> V 11:58:06 PUMP ERECTOR HELPER
--- OUTSIDE RECORDS SUMMARY | 2019-11-13 10:43 | XMS REPORT | Clinical Summary ---
[...] Bertrnad Patel DO Acute pharyngitis Polyuria 788.42 Active [...] TID PRN for muscle pain CYCLOBENZAPRINE HCL 86355138108 Active Brittni Randall CELL TESTER Active AMLODIPINE BESYLATE 5 MG TABS 1 tablet by mouth daily for bl ood pressure AMLODIPINE BESYLATE 89526374010 Active Bertrand Patel DO Active MICARDIS 80 MG TABS 1 tablet daily for blood pressure TELMISARTAN 40533225819 Active Bertrand Patel DO Active MICARDIS HCT 80-12.5 MG TABS 1 qd TELMISARTA N-HCTZ 13055031453 No Longer Active Bertrand Patel DO Active FUROSEMIDE 20 MG TABS take one po PRN FUROSEMIDE 92587566648 Active Bertrand Patel DO Active CINNAMON ALPHA LIPOIC AC CMPLX CAPS by mouth twice a d ay in AM by mouth twice a day in PM ALPHA LIPOIC [id number] CAPS 984438 34553 No Longer Active Bertrand Patel DO Active AZITHROMYCIN 500 MG SOLR 1 po q day AZITHROMYCI N 73733681298 No Longer Active Bertrand Patel DO Active CYMBALTA 30 MG CPEP 1 cap by mouth daily DULOXE CATHI HCL 63787958476 No Longer Active Bertrand Patel DO Active CYMBALTA 60 MG CPEP 1 cap by mouth daily DULOXE CATHI HCL 85720830427 Active Bertrand Patel DO Active WELLBUTRIN 75 MG TABS 2 times daily BUPROPION H CL 38266543082 No Longer Active Bertrand Patel DO Active [facility] MELATONIN 5-10 MG CR-TABS Take one by mouth daily at bedtime 20 15/04/08 MELATONIN-PYRIDOXINE 80313495677 Active Bertrand Patel DO Activ e LORTAB 7.5-500 MG TABS take one po Q6 hours HYDROCODONE-ACETAMINOPHEN 25236957805 Active Bertrand Patel DO Active PROAIR HFA 108 (90 BASE) MCG/ACT AERS take one to two puffs po Q4-6 hour prn cough and shortness of breath ALBUTEROL SULFATE 1112096519 1 Active Adolfo OSORIO Active AZITHROMYCIN 250 MG TABS take 2 po today then take 1 po days 2-5 AZITHROMYCIN 43035725894 No Longer Active Adolfo OSORIO Active VITAMIN E 200 UNIT CAPS 1 cap po qd VITAMIN E 8869676167 5 Active Adolfo OSORIO Active PERMETHRIN 5 % CREA apply neck to toes tonight a nd then rinse off in morning. repeat at 7 days PERMETHRIN 09667941780 No Longer Active Adolfo OSORIO Active AMOXICILLIN 500 MG CAPS 2 po BID x 10 days AMOX ICILLIN 58178360578 No Longer Active Yoli Mercado MD PhD Active ALPRAZOLAM 0.5 MG TAB 1 tab by mouth tid ALPRAZOL AM 82170199704 Active Bertrand Patel DO Active PRAVASTATIN SODIUM 20 MG TABS 1 tablet by mouth daily at bedtime 20 05/12/02 PRAVASTATIN SODIUM 07583647548 Active Bertrand Patel DO Active B-12 1000 MCG CAPS 1 tab daily CYANOCOBALAMIN 5099443 2732 Active Berrtand Patel DO Active INSUPEN ULTRAFIN 31G X 6 MM MISC USE DIRECTED 03/04 INSULIN PEN NEEDLE 18686378208 No Longer Active Bertrand Patel DO Active TRANSDERM-SCOP 1.5 MG PT72 1 patch applied behind ear q 3 day 20 04/13/28 SCOPOLAMINE BASE 21338300259 No Longer Active Bertrand Patel DO Active MACRODANTIN 100 MG CAPS one p.o. b.i.d. x2 weeks 03/04 NITROFURANTOIN MACROCRYSTAL 85505645735 No Longer Active Bertrand Patel DO Active METFORMIN HCL 500 MG TABS 1 bid METFORMIN HCL 85108311 898 Active Darrian Woods MD Active MACRODANTIN 100 MG CAPS one p.o. b.i.d. x2 weeks 03/04 MACRODANTIN 100 MG CAPS 931724 NITROFURANTOIN MACROCRYSTAL Inactive TRANSDERM-SCOP 1.5 MG PT72 [...] at 7 days PERMETHRIN 5 % CREA 550419 PERMETHRIN Inactive WELLBUTRIN 75 MG TABS 2 times daily WELLBUTRIN 75 MG TABS 784073 BUPROPION HCL Inactive CYMBALTA 30 MG CPEP 1 cap by mouth daily CYMBALTA 30 MG CPEP 785995 DULOXETINE HCL Inactive AZITHROMYCIN 500 MG SOLR 1 po q day ALTA THROMYCIN 500 MG SOLR 374740 AZITHROMYCIN Inactive CINNAMON ALPHA LIPOIC AC CMPLX CAPS by mouth twice a d ay in AM by mouth twice a day in PM CINNAMON ALPHA LIPOIC AC CMPLX CAPS ALPHA LIPOIC [id number] CAPS Inactive MICARDIS HCT 80-12.5 MG TABS 1 qd MICARDI S HCT 80-12.5 MG TABS 493766 TELMISARTAN-HCTZ Inactive AMOXICILLIN 500 MG CAPS 2 po BID x 10 days AMOXICILLIN 500 MG CAPS 183633 AMOXICILLIN Inactive AZITHROMYCIN 250 MG TABS take 2 po today then take 1 po days 2-5 AZITHROMYCIN 250 MG TABS 9418169 AZITHROMYCIN Inactiv e Vital Signs Date Name [...] ... - Chemistry sodium, serum 142 mmol/L 107-053 2393/02/27 potassium, serum 4.7 mmol/L 3.5-5.2 chloride, serum [...] mg/g{creat} 0-2 9 cholesterol, serum 168 mg/dL 897-735 9783/02/27 triglyceride, serum, fasting 101 mg/dL 30-200 HDL [...] 0.30 mg/dL 0.00-1.00 cholesterol, serum 140 mg/dL 678-866 0521/11/08 triglyceride, serum, fasting 76 mg/dL 30-200 HDL cholesterol, serum 60 mg/dL 32-96 LDL cholesterol, serum 65 mg/dL 0-130 sodium, serum 143 mmol/L 374-881 6984/11/08 potassium, serum 4.8 mmol/L 3.5-5.2 chloride, serum [...] 5.0-8.5 Encounters Code Encounter Date Provider Facility CPT-99565 Level 2 Est. Patient 08:00:22 CDT Jcarlos dc MD [facility] CPT-55813 Level 3 Est. Patient 19:06:55 CDT Bertrand marquez [facility] CPT-44199 Level 3 Est. Patient 10:08:23 HEALTH SAFETY ENGINEER Bertrand marquez [facility]-14766 Level 3 Est. Patient 16:37:54 HEALTH SAFETY ENGINEER Bertrand marquez [facility] CPT-57690 Level 3 Est. Patient 11:31:59 HEALTH SAFETY ENGINEER Bertrand marquez [facility] CPT-72859 Level 3 Est. Patient 10:20:08 CDT Adolfo villasenor [facility] CPT-19249 Level 3 Est. Patient 13:45:20 CDT Sanket buckley [facility] CPT-19301 Level 3 Est. Patient 12:51:06 CDT Adolfo villasenor [facility] CPT-22383 Level 3 Est. Patient 11:22:51 HEALTH SAFETY ENGINEER Yoli tolbert MD PhD [facility] CPT-13810 Level 3 Est. Patient 13:33:19 CDT Bertrand marquez DO [facility] Procedures Code Procedure Name Date Entry Date Standard Desc ription CPT-56284 Knee comp 4/> V 11:58:06 HEALTH SAFETY ENGINEER
--- OUTSIDE RECORDS SUMMARY | 2019-11-13 10:44 | XMS REPORT | Clinical Summary ---
Author Author Admin, Enrique Adamson Organization [facility] Address Unknown Phone Unavailable Allergies, Adverse Reactions, [...] 788.42 Active Bertrand Patel DO Po lyuria Cellulitis, leg, right 682.6 Active Yoli sabillon MD PhD Cellulitis and abscess of leg, except foot Foreign body, ear 931 Active Yoli Mercado MD PhD Foreign body in ear HEALTH SCREENING ICD-V70.0 Inactive Yoli sabillon MD PhD SCABIES ICD-133.0 Inactive Yoli Mercado MD PhD 201 07/14/20 Pharyngitis-Acute ICD-462 Inactive Bertrand Redmond DO Medication List Medication Instructions Start Date Stop Date Generic Name NDC Status Provider Patient Instruction LEVAQUIN 500 MG TABS 1 pill by mouth daily LEVO FLOXACIN 86120434843 Active Yoli Mercado MD PhD Active CYCLOBENZAPRINE HCL 10 MG TABS Take 1 tab TID PRN for muscle pain CYCLOBENZAPRINE HCL 87520944216 Active 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 Randall 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 AMLODIPINE BESYLATE 5 MG TABS 1 tablet by mouth daily for bl ood pressure AMLODIPINE BESYLATE 35383076758 Active Bertrand Patel DO Active MICARDIS 80 MG TABS 1 tablet daily for blood pressure TELMISARTAN 62291119479 Active Bertrand Patel DO Active MICARDIS HCT 80-12.5 MG TABS 1 qd TELMISARTA N-HCTZ 33360807174 No Longer Active Bertrand Patel DO Active FUROSEMIDE 20 MG TABS take one po PRN FUROSEMIDE 22030655019 Active Bertrand Patel DO Active CINNAMON ALPHA LIPOIC AC CMPLX CAPS by mouth twice a d ay in AM by mouth twice a day in PM ALPHA LIPOIC [id number] CAPS 439536 99193 No Longer Active Bertrand Patel DO Active AZITHROMYCIN 500 MG SOLR 1 po q day AZITHROMYCI N 65930100168 No Longer Active Bertrand Patel DO Active CYMBALTA 30 MG CPEP 1 cap by mouth daily DULOXE CATHI HCL 69393132761 No Longer Active Bertrand Patel DO Active CYMBALTA 60 MG CPEP 1 cap by mouth daily DULOXE CATHI HCL 31659527099 Active Bertrand Patel DO Active WELLBUTRIN 75 MG TABS 2 times daily BUPROPION H CL 80901955189 No Longer Active Bertrand Patel DO Active [facility] MELATONIN 5-10 MG CR-TABS Take one by mouth daily at bedtime 20 15/04/08 MELATONIN-PYRIDOXINE 23946758497 Active Bertrand Patel DO Activ e LORTAB 7.5-500 MG TABS take one po Q6 hours HYDROCODONE-ACETAMINOPHEN 87487949888 Active Bertrand Patel DO Active PROAIR HFA 108 (90 BASE) MCG/ACT AERS take one to two puffs po Q4-6 hour prn cough and shortness of breath ALBUTEROL SULFATE 9554569578 1 Active Adolfo OSORIO Active AZITHROMYCIN 250 MG TABS take 2 po today then take 1 po days 2-5 AZITHROMYCIN 41365337128 No Longer Active Adolfo OSORIO Active VITAMIN E 200 UNIT CAPS 1 cap po qd VITAMIN E 2871433778 5 Active Adolfo OSORIO Active PERMETHRIN 5 % CREA apply neck to toes tonight a nd then rinse off in morning. repeat at 7 days PERMETHRIN 24760893509 No Longer Active Adolfo OSORIO Active AMOXICILLIN 500 MG CAPS 2 po BID x 10 days AMOX ICILLIN 63012163754 No Longer Active Yoli Mercado MD PhD Active ALPRAZOLAM 0.5 MG TAB 1 tab by mouth tid ALPRAZOL AM 92056330413 Active Bertrand Patel DO Active PRAVASTATIN SODIUM 20 MG TABS 1 tablet by mouth daily at bedtime 20 05/12/02 PRAVASTATIN SODIUM 31528283393 Active Bertrand Patel DO Active B-12 1000 MCG CAPS 1 tab daily CYANOCOBALAMIN 3432443 2732 Active Bertrand Patel DO Active INSUPEN ULTRAFIN 31G X 6 MM MISC USE DIRECTED 03/04 INSULIN PEN NEEDLE 89050746846 No Longer Active Bertrand Patel DO Active TRANSDERM-SCOP 1.5 MG PT72 1 patch applied behind ear q 3 day 20 04/13/28 SCOPOLAMINE BASE 54931553138 No Longer Active Bertrand Patel DO Active MACRODANTIN 100 MG CAPS one p.o. b.i.d. x2 weeks 03/04 NITROFURANTOIN MACROCRYSTAL 48700998555 No Longer Active Bertrand Patel DO Active METFORMIN HCL 500 MG TABS 1 bid METFORMIN HCL 10824496 898 Active Bertrand Patel DO Active MACRODANTIN 100 MG CAPS one p.o. b.i.d. x2 weeks 03/04 MACRODANTIN 100 MG CAPS 213833 NITROFURANTOIN MACROCRYSTAL Inactive TRANSDERM-SCOP 1.5 MG PT72 [...] at 7 days PERMETHRIN 5 % CREA 720691 PERMETHRIN Inactive WELLBUTRIN 75 MG TABS 2 times daily WELLBUTRIN 75 MG TABS 842280 BUPROPION HCL Inactive CYMBALTA 30 MG CPEP 1 cap by mouth daily CYMBALTA 30 MG CPEP 502799 DULOXETINE HCL Inactive AZITHROMYCIN 500 MG SOLR 1 po q day ALTA THROMYCIN 500 MG SOLR 407387 AZITHROMYCIN Inactive CINNAMON ALPHA LIPOIC AC CMPLX CAPS by mouth twice a d ay in AM by mouth twice a day in PM CINNAMON ALPHA LIPOIC AC CMPLX CAPS ALPHA LIPOIC [id number] CAPS Inactive MICARDIS HCT 80-12.5 MG TABS 1 qd MICARDI S HCT 80-12.5 MG TABS 829481 TELMISARTAN-HCTZ Inactive AMOXICILLIN 500 MG CAPS 2 po BID x 10 days AMOXICILLIN 500 MG CAPS 908182 AMOXICILLIN Inactive AZITHROMYCIN 250 MG TABS take 2 po today then take 1 po days 2-5 AZITHROMYCIN 250 MG TABS 0101655 AZITHROMYCIN Inactiv e Vital Signs Date Name [...] ... - Chemistry sodium, serum 142 mmol/L 970-468 4643/02/27 potassium, serum 4.7 mmol/L 3.5-5.2 chloride, serum [...] mg/g{creat} 0-2 9 cholesterol, serum 168 mg/dL 902-359 3730/02/27 triglyceride, serum, fasting 101 mg/dL 30-200 HDL [...] 0.30 mg/dL 0.00-1.00 cholesterol, serum 140 mg/dL 218-025 3385/11/08 triglyceride, serum, fasting 76 mg/dL 30-200 HDL cholesterol, serum 60 mg/dL 32-96 LDL cholesterol, serum 65 mg/dL 0-130 sodium, serum 143 mmol/L 414-425 2326/11/08 potassium, serum 4.8 mmol/L 3.5-5.2 chloride, serum [...] mg/dL Encounters Code Encounter Date Provider Facility CPT-73627 Level 3 Est. Patient 14:36:01 CDT Yoli tolbert MD PhD [facility] CPT-65870 Level 2 Est. Patient 08:00:22 CDT Jcarlos cd MD [facility] CPT-25844 Level 3 Est. Patient 19:06:55 CDT Bertrand marquez [facility] CPT-21491 Level 3 Est. Patient 10:08:23 CULLET CRUSHER Bertrand marquez [facility] CPT-41485 Level 3 Est. Patient 16:37:54 CULLET CRUSHER Bertrand marquez [facility] CPT-57402 Level 3 Est. Patient 11:31:59 CULLET CRUSHER Bertrand marquez [facility] CPT-44233 Level 3 Est. Patient 10:20:08 CDT Adolfo villasenor [facility] CPT-46244 Level 3 Est. Patient 13:45:20 CDT Sanket buckley [facility] CPT-42221 Level 3 Est. Patient 12:51:06 CDT Adolfo villasenor [facility] CPT-38771 Level 3 Est. Patient 11:22:51 CULLET CRUSHER Yoli tolbert MD PhD [facility] CPT-96586 Level 3 Est. Patient 13:33:19 CDT Bertrand marquez [facility] Procedures Code Procedure Name Date Entry Date Standard Desc ription CPT-43598 Knee comp 4/> V 11:58:06 CULLET CRUSHER
--- OUTSIDE RECORDS SUMMARY | 2019-11-13 10:44 | XMS REPORT | Clinical Summary ---
Author Author Admin, Enrique Adamson Organization [facility] Address Unknown Phone Unavailable Allergies, Adverse [...] one by mouth daily at bedtime MELATONIN-PYRIDOXINE 77382618200 No Longer Active Bertrand Patel DO Active VITAMIN E 200 UNIT CAPS 1 cap po qd VITAMIN E 316 29175479 No Longer Active Bertrand Patel DO Active B-12 1000 MCG CAPS 1 tab daily CYANOCOBALAMIN 31 004259994 No Longer Active Bertrand Patel DO Active METFORMIN HCL 500 MG TABS 1 bid METFORMIN HCL 63706932619 No Longer Active Bertrand Patel DO Active FUROSEMIDE 20 MG TABS 1 pill by mouth daily if needed for edema FUROSEMIDE 48177707801 No Longer Active Bertrand Patel DO Act [place] PRAVASTATIN SODIUM 20 MG TABS 1 tablet by mouth daily at bedtime PRAVASTATIN SODIUM 13799592107 No Longer Active Bertrand Patel DO Active AUGMENTIN 875-125 MG TABS 1 pill by mouth twice daily AMOXICILLIN-POT CLAVULANATE 99762004977 No Longer Active Yoli Mercado MD PhD Active LEVAQUIN 500 MG TABS 1 pill by mouth daily LEVO FLOXACIN 82374425754 No Longer Active Yoli Mercado MD PhD Active CYCLOBENZAPRINE HCL 10 MG TABS Take 1 tab TID PRN for muscle pain CYCLOBENZAPRINE HCL 10649964773 Active Brittni 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 AMLODIPINE BESYLATE 5 MG TABS 1 tablet by mouth daily for bl ood pressure AMLODIPINE BESYLATE 06656093184 Active Yoli Mercado MD P hD Active MICARDIS 80 MG TABS 1 tablet daily for blood pressure TELMISARTAN 59580180438 Active Bertrand Patel DO Active MICARDIS HCT 80-12.5 MG TABS 1 qd TELMISARTA N-HCTZ 78662593152 No Longer Active Bertrand Patel DO Active CINNAMON ALPHA LIPOIC AC CMPLX CAPS by mouth twice a d ay in AM by mouth twice a day in PM ALPHA LIPOIC [id number] CAPS 401178 69867 No Longer Active Bertrand Patel DO Active AZITHROMYCIN 500 MG SOLR 1 po q day AZITHROMYCI N 62266921564 No Longer Active Bertrand Patel DO Active CYMBALTA 30 MG CPEP 1 cap by mouth daily DULOXE CATHI HCL 60535081484 No Longer Active Bertrand Patel DO Active CYMBALTA 60 MG CPEP 1 cap by mouth daily DULOXE CATHI HCL 40569710657 Active Bertrand Patel DO Active WELLBUTRIN 75 MG TABS 2 times daily BUPROPION H CL 84274460984 No Longer Active Bertrand Patel DO Active LORTAB 7.5-500 MG TABS take one po Q6 hours HYDROCODONE-ACETAMINOPHEN Active Bertrand Patel DO Active PROAIR HFA 108 (90 BASE) MCG/ACT AERS take one to two puffs po Q4-6 hour prn cough and shortness of breath ALBUTEROL SULFATE 8325955878 1 Active Adolfo OSORIO Active AZITHROMYCIN 250 MG TABS take 2 po today then take 1 po days 2-5 AZITHROMYCIN 10518214423 No Longer Active Adolfo OSORIO Active PERMETHRIN 5 % CREA apply neck to toes tonight a nd then rinse off in morning. repeat at 7 days PERMETHRIN 85967637934 No Longer Active Adolfo OSORIO Active AMOXICILLIN 500 MG CAPS 2 po BID x 10 days AMOX ICILLIN 46414357871 No Longer Active Yoli Mercado MD PhD Active ALPRAZOLAM 0.5 MG TAB 1 tab by mouth tid ALPRAZOL AM 05521357949 Active Bertrand Patel DO Active INSUPEN ULTRAFIN 31G X 6 MM MISC USE DIRECTED 03/04 INSULIN PEN NEEDLE 11619231121 No Longer Active Bertrand Patel DO Active TRANSDERM-SCOP 1.5 MG PT72 1 patch applied behind ear q 3 day 20 04/13/28 SCOPOLAMINE BASE 57348511488 No Longer Active Bertrand Patel DO Active MACRODANTIN 100 MG CAPS one p.o. b.i.d. x2 weeks 03/04 NITROFURANTOIN MACROCRYSTAL 01571681450 No Longer Active Bertrand Patel DO Active MACRODANTIN 100 MG CAPS one p.o. b.i.d. x2 weeks 03/04 MACRODANTIN 100 MG CAPS 988159 NITROFURANTOIN MACROCRYSTAL Inactive TRANSDERM-SCOP 1.5 MG PT72 [...] at 7 days PERMETHRIN 5 % CREA 923525 PERMETHRIN Inactive WELLBUTRIN 75 MG TABS 2 times daily WELLBUTRIN 75 MG TABS 580661 BUPROPION HCL Inactive CYMBALTA 30 MG CPEP 1 cap by mouth daily CYMBALTA 30 MG CPEP 216732 DULOXETINE HCL Inactive AZITHROMYCIN 500 MG SOLR 1 po q day ALTA THROMYCIN 500 MG SOLR 271866 AZITHROMYCIN Inactive CINNAMON ALPHA LIPOIC AC CMPLX CAPS by mouth twice a d ay in AM by mouth twice a day in PM CINNAMON ALPHA LIPOIC AC CMPLX CAPS ALPHA LIPOIC [id number] CAPS Inactive MICARDIS HCT 80-12.5 MG TABS 1 qd MICARDI S HCT 80-12.5 MG TABS 338776 TELMISARTAN-HCTZ Inactive PRAVASTATIN SODIUM 20 MG TABS 1 tablet by mouth daily at bedtime PRAVASTATIN SODIUM 20 MG TABS 224882 PRAVASTATIN SODIUM Inactive FUROSEMIDE 20 MG TABS 1 pill by mouth daily if needed for edema FUROSEMIDE 20 MG TABS 160836 FUROSEMIDE Inactive METFORMIN HCL 500 MG TABS 1 bid METFORMIN HCL 500 MG TABS 590314 METFORMIN HCL Inactive B-12 1000 MCG CAPS 1 tab daily B-12 1000 MCG CAP S CYANOCOBALAMIN Inactive VITAMIN E 200 UNIT CAPS 1 cap po qd VITAMIN E 2 00 UNIT CAPS 0397675 VITAMIN E Inactive [facility] MELATONIN 5-10 MG CR-TABS Take one by mouth daily at bedtime [facility] MELATONIN 5-10 MG CR-TABS MELATONIN-PYRIDOXI NE Inactive AMOXICILLIN 500 MG CAPS 2 po BID x 10 days AMOXICILLIN 500 MG CAPS 605282 AMOXICILLIN Inactive AZITHROMYCIN 250 MG TABS take 2 po today then take 1 po days 2-5 AZITHROMYCIN 250 MG TABS 5782436 AZITHROMYCIN Inactiv e LEVAQUIN 500 MG TABS 1 pill by mouth daily LEVAQUIN 500 MG TABS 006997 LEVOFLOXACIN Inactive AUGMENTIN 875-125 MG TABS 1 pill by mouth twice daily AUGMENTIN 875-125 MG TABS 360694 AMOXICILLIN-POT CLAVULANATE Inacti ve Vital Signs Date [...] ... - Chemistry sodium, serum 142 mmol/L 655-146 7644/02/27 potassium, serum 4.7 mmol/L 3.5-5.2 chloride, serum [...] mg/g{creat} 0-2 9 cholesterol, serum 168 mg/dL 928-335 3471/02/27 triglyceride, serum, fasting 101 mg/dL 30-200 HDL [...] 0.30 mg/dL 0.00-1.00 cholesterol, serum 140 mg/dL 117-205 3179/11/08 triglyceride, serum, fasting 76 mg/dL 30-200 HDL cholesterol, serum 60 mg/dL 32-96 LDL cholesterol, serum 65 mg/dL 0-130 sodium, serum 143 mmol/L 746-042 5158/11/08 potassium, serum 4.8 mmol/L 3.5-5.2 chloride, serum [...] mg/dL Encounters Code Encounter Date Provider Facility CPT-30966 Level 3 Est. Patient 12:56:37 CDT Bertrand marquez DO [facility] CPT-81397 Level 3 Est. Patient 19:12:03 CDT Yoli tolbert MD [facility] CPT-59974 Level 3 Est. Patient 14:36:01 CDT Yoli tolbert MD PhD [facility] CPT-20663 Level 2 Est. Patient 08:00:22 CDT Jcarlos dc MD [facility]-84192 Level 3 Est. Patient 19:06:55 CDT Bertrand marquez [facility] CPT-15405 Level 3 Est. Patient 10:08:23 CIGAR WRAPPER Bertrand marquez [facility] CPT-44109 Level 3 Est. Patient 16:37:54 CIGAR WRAPPER Bertrand marquez [facility] CPT-35823 Level 3 Est. Patient 11:31:59 CIGAR WRAPPER Bertrand marquez [facility] CPT-94637 Level 3 Est. Patient 10:20:08 CDT Adolfo villasenor [facility] CPT-38742 Level 3 Est. Patient 13:45:20 CDT Sanket buckley [facility] CPT-74417 Level 3 Est. Patient 12:51:06 CDT Adolfo villasenor [facility] CPT-17835 Level 3 Est. Patient 11:22:51 CIGAR WRAPPER Yoli tolbert MD [facility] CPT-65046 Level 3 Est. Patient 13:33:19 CDT Bertrand marquez [facility] Procedures Code Procedure Name Date Entry Date Standard Desc ription CPT-75151 Knee comp 4/> V 11:58:06 CIGAR WRAPPER
--- OUTSIDE RECORDS SUMMARY | 2019-11-13 10:44 | XMS REPORT | Clinical Summary ---
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 AMLODIPINE BESYLATE 5 MG TABS 1 tablet by mouth daily for bl ood pressure AMLODIPINE BESYLATE 77507530670 Active Bertrand Patel DO Active MICARDIS 80 MG TABS 1 tablet daily for blood pressure TELMISARTAN 40408541773 Active Bertrand Patel DO Active MICARDIS HCT 80-12.5 MG TABS 1 qd TELMISARTA N-HCTZ 10689339138 No Longer Active Bertrand Patel DO Active FUROSEMIDE 20 MG TABS take one po PRN FUROSEMIDE 02753738089 Active Bertrand Patel DO Active CINNAMON ALPHA LIPOIC AC CMPLX CAPS by mouth twice a d ay in AM by mouth twice a day in PM ALPHA LIPOIC [id number] CAPS 478371 83375 No Longer Active Bertrand Patel DO Active AZITHROMYCIN 500 MG SOLR 1 po q day AZITHROMYCI N 90896441606 No Longer Active Bertrand Patel DO Active CYMBALTA 30 MG CPEP 1 cap by mouth daily DULOXE CATHI HCL 09825925474 No Longer Active Bertrand Patel DO Active CYMBALTA 60 MG CPEP 1 cap by mouth daily DULOXE CATHI HCL 56588678436 Active Bertrand Patel DO Active WELLBUTRIN 75 MG TABS 2 times daily BUPROPION H CL 31320012869 No Longer Active Bertrand Patel DO Active [facility] MELATONIN 5-10 MG CR-TABS Take one by mouth daily at bedtime 20 15/04/08 MELATONIN-PYRIDOXINE 67004253281 Active Bertrand Patel DO Activ e LORTAB 7.5-500 MG TABS take one po Q6 hours HYDROCODONE-ACETAMINOPHEN Active Bertrand Patel DO Active PROAIR HFA 108 (90 BASE) MCG/ACT AERS take one to two puffs po Q4-6 hour prn cough and shortness of breath ALBUTEROL SULFATE 6319054416 1 Active Adolfo OSORIO Active AZITHROMYCIN 250 MG TABS take 2 po today then take 1 po days 2-5 AZITHROMYCIN 35882369876 No Longer Active Adolfo OSORIO Active VITAMIN E 200 UNIT CAPS 1 cap po qd VITAMIN E 1960727756 5 Active Adolfo OSORIO Active PERMETHRIN 5 % CREA apply neck to toes tonight a nd then rinse off in morning. repeat at 7 days PERMETHRIN 79555445415 No Longer Active Adolfo OSORIO Active AMOXICILLIN 500 MG CAPS 2 po BID x 10 days AMOX ICILLIN 77706545801 No Longer Active Yoli Mercado MD PhD Active ALPRAZOLAM 0.5 MG TAB 1 tab by mouth tid ALPRAZOL AM 91528256610 Active Bertrand Patel DO Active PRAVASTATIN SODIUM 20 MG TABS 1 tablet by mouth daily at bedtime 20 05/12/02 PRAVASTATIN SODIUM 63675688966 Active Bertrand Patel DO Active B-12 1000 MCG CAPS 1 tab daily CYANOCOBALAMIN 6215912 2732 Active Bertrand Patel DO Active INSUPEN ULTRAFIN 31G X 6 MM MISC USE DIRECTED 03/04 INSULIN PEN NEEDLE 38629744810 No Longer Active Bertrand Patel DO Active TRANSDERM-SCOP 1.5 MG PT72 1 patch applied behind ear q 3 day 20 04/13/28 SCOPOLAMINE BASE 13870903307 No Longer Active Bertrand Patel DO Active MACRODANTIN 100 MG CAPS one p.o. b.i.d. x2 weeks 03/04 NITROFURANTOIN MACROCRYSTAL 88016583760 No Longer Active Bertrand Patel DO Active METFORMIN HCL 500 MG TABS 1 bid METFORMIN HCL 54455148 898 Active Bertrand Patel DO Active MACRODANTIN 100 MG CAPS one p.o. b.i.d. x2 weeks 03/04 MACRODANTIN 100 MG CAPS 073156 NITROFURANTOIN MACROCRYSTAL Inactive TRANSDERM-SCOP 1.5 MG PT72 [...] at 7 days PERMETHRIN 5 % CREA 347693 PERMETHRIN Inactive WELLBUTRIN 75 MG TABS 2 times daily WELLBUTRIN 75 MG TABS 370499 BUPROPION HCL Inactive CYMBALTA 30 MG CPEP 1 cap by mouth daily CYMBALTA 30 MG CPEP 357381 DULOXETINE HCL Inactive AZITHROMYCIN 500 MG SOLR 1 po q day ALTA THROMYCIN 500 MG SOLR 630572 AZITHROMYCIN Inactive CINNAMON ALPHA LIPOIC AC CMPLX CAPS by mouth twice a d ay in AM by mouth twice a day in PM CINNAMON ALPHA LIPOIC AC CMPLX CAPS ALPHA LIPOIC WEEY-[id number]-YHIOSDAD CAPS Inactive MICARDIS HCT 80-12.5 MG TABS 1 qd MICARDI S HCT 80-12.5 MG TABS 483711 TELMISARTAN-HCTZ Inactive AMOXICILLIN 500 MG CAPS 2 po BID x 10 days AMOXICILLIN 500 MG CAPS 531311 AMOXICILLIN Inactive AZITHROMYCIN 250 MG TABS take 2 po today then take 1 po days 2-5 AZITHROMYCIN 250 MG TABS 8630210 AZITHROMYCIN Inactiv e LEVAQUIN 500 MG TABS 1 pill by mouth daily LEVAQUIN 500 MG TABS 666634 LEVOFLOXACIN Inactive Vital Signs Date Name Value [...] ... - Chemistry sodium, serum 142 mmol/L 604-820 2639/02/27 potassium, serum 4.7 mmol/L 3.5-5.2 chloride, serum [...] mg/g{creat} 0-2 9 cholesterol, serum 168 mg/dL 125-269 0806/02/27 triglyceride, serum, fasting 101 mg/dL 30-200 HDL [...] 0.30 mg/dL 0.00-1.00 cholesterol, serum 140 mg/dL 588-127 2053/11/08 triglyceride, serum, fasting 76 mg/dL 30-200 HDL cholesterol, serum 60 mg/dL 32-96 LDL cholesterol, serum 65 mg/dL 0-130 sodium, serum 143 mmol/L 772-817 4556/11/08 potassium, serum 4.8 mmol/L 3.5-5.2 chloride, serum [...] mg/dL Encounters Code Encounter Date Provider Facility CPT-68370 Level 3 Est. Patient 14:36:01 CDT Yoli tolbert MD PhD [facility] CPT-82113 Level 2 Est. Patient 08:00:22 CDT Jcarlos dc MD [facility] CPT-14647 Level 3 Est. Patient 19:06:55 CDT Bertrand marquez [facility] CPT-94884 Level 3 Est. Patient 10:08:23 WAREHOUSE STOCK CLERK Bertrand marquez [facility] CPT-47733 Level 3 Est. Patient 16:37:54 WAREHOUSE STOCK CLERK Bertrand marquez [facility] CPT-90085 Level 3 Est. Patient 11:31:59 WAREHOUSE STOCK CLERK Bertrand marquez [facility] CPT-91341 Level 3 Est. Patient 10:20:08 CDT Adolfo villasenor [facility] CPT-90696 Level 3 Est. Patient 13:45:20 CDT Sanket buckley [facility] CPT-64938 Level 3 Est. Patient 12:51:06 CDT Adolfo villasenor [facility] CPT-94782 Level 3 Est. Patient 11:22:51 WAREHOUSE STOCK CLERK Yoli tolbert MD PhD [facility] CPT-53964 Level 3 Est. Patient 13:33:19 CDT Bertrand marquez [facility] Procedures Code Procedure Name Date Entry Date Standard Desc ription CPT-88173 Knee comp 4/> V 11:58:06 WAREHOUSE STOCK CLERK
--- OUTSIDE RECORDS SUMMARY | 2019-11-13 10:44 | XMS REPORT | Clinical Summary ---
Author Author Admin, Enrique Adamson Organization [facility] Address Unknown Phone Unavailable Allergies, Adverse Reactions, [...] hD Foreign body, ear ICD-931 Inactive Yoli salazra MD PhD Medication List Medication Instructions Start Date Stop Date Generic Name NDC Status Provider Patient Instruction HYDROCODONE-ACETAMINOPHEN 7.5-325 MG TABS TAKE ONE TAB EVERY 6 HOURS BY MOUTH NEEDED FOR PAIN HYDROCODONE-ACETAMINOPHEN [id number] Acti ve Nirmal Robbins RN Active LORTAB 7.5-500 MG TABS take one po Q6 hours HYDROCODONE-ACETAMINOPHEN No Longer Active Nirmal Robbins RN Active [facility] MELATONIN 5-10 MG CR-TABS Take one by mouth daily at bedtime MELATONIN-PYRIDOXINE 04911638949 No Longer Active Bertrand Patel DO Active VITAMIN E 200 UNIT CAPS 1 cap po qd VITAMIN E 316 39555229 No Longer Active Bertrand Patel DO Active B-12 1000 MCG CAPS 1 tab daily CYANOCOBALAMIN 31 124978525 No Longer Active Bertrand Patel DO Active METFORMIN HCL 500 MG TABS 1 bid METFORMIN HCL 52734986244 No Longer Active Bertrand Patel DO Active FUROSEMIDE 20 MG TABS 1 pill by mouth daily if needed for edema FUROSEMIDE 42566753190 No Longer Active Bertrand Patel DO Act jairo PRAVASTATIN SODIUM 20 MG TABS 1 tablet by mouth daily at bedtime PRAVASTATIN SODIUM 19741296015 No Longer Active Bertrand Patel DO Active AUGMENTIN 875-125 MG TABS 1 pill by mouth twice daily AMOXICILLIN-POT CLAVULANATE 42932381310 No Longer Active Yoli Mercado MD PhD Active LEVAQUIN 500 MG TABS 1 pill by mouth daily LEVO FLOXACIN 67429650104 No Longer Active Yoli Mercado MD PhD Active CYCLOBENZAPRINE HCL 10 MG TABS Take 1 tab TID PRN for muscle pain CYCLOBENZAPRINE HCL 68697222197 Active Brittni Perrin Prakash SAFETY COUNCIL DIRECTOR Active AMLODIPINE BESYLATE 5 MG TABS 1 tablet by mouth daily for bl ood pressure AMLODIPINE BESYLATE 67899018184 Active Bertrand Patel DO Active MICARDIS 80 MG TABS 1 tablet daily for blood pressure TELMISARTAN 06363256372 Active Bertrand Patel DO Active MICARDIS HCT 80-12.5 MG TABS 1 qd TELMISARTA N-HCTZ 08920367361 No Longer Active Bertrand Patel DO Active CINNAMON ALPHA LIPOIC AC CMPLX CAPS by mouth twice a d ay in AM by mouth twice a day in PM ALPHA LIPOIC [id number] CAPS 493902 01102 No Longer Active Bertrand Patel DO Active AZITHROMYCIN 500 MG SOLR 1 po q day AZITHROMYCI N 21426046903 No Longer Active Bertrand Patel DO Active CYMBALTA 30 MG CPEP 1 cap by mouth daily DULOXE CATHI HCL 42225346064 No Longer Active Bertrand Patel DO Active CYMBALTA 60 MG CPEP 1 cap by mouth daily DULOXE CATHI HCL 67473371705 Active Bertrand Patel DO Active WELLBUTRIN 75 MG TABS 2 times daily BUPROPION H CL 75235639843 No Longer Active Bertrand Patel DO Active PROAIR HFA 108 (90 BASE) MCG/ACT AERS take one to two puffs po Q4-6 hour prn cough and shortness of breath ALBUTEROL SULFATE 0693002623 1 Active Adolfo OSORIO Active AZITHROMYCIN 250 MG TABS take 2 po today then take 1 po days 2-5 AZITHROMYCIN 62430495014 No Longer Active Adolfo OSORIO Active PERMETHRIN 5 % CREA apply neck to toes tonight a nd then rinse off in morning. repeat at 7 days PERMETHRIN 98806319131 No Longer Active Adolfo OSORIO Active AMOXICILLIN 500 MG CAPS 2 po BID x 10 days AMOX ICILLIN 54215746400 No Longer Active Yoli Mercado MD PhD Active ALPRAZOLAM 0.5 MG TAB 1 tab by mouth tid ALPRAZOL AM 78035857404 Active Bertrand Patel DO Active INSUPEN ULTRAFIN 31G X 6 MM MISC USE DIRECTED 03/04 INSULIN PEN NEEDLE 59527402885 No Longer Active Bertrand Patel DO Active TRANSDERM-SCOP 1.5 MG PT72 1 patch applied behind ear q 3 day 20 04/13/28 SCOPOLAMINE BASE 83712930805 No Longer Active Bertrand Patel DO Active MACRODANTIN 100 MG CAPS one p.o. b.i.d. x2 weeks 03/04 NITROFURANTOIN MACROCRYSTAL 53559112853 No Longer Active Bertrand Patel DO Active MACRODANTIN 100 MG CAPS one p.o. b.i.d. x2 weeks 03/04 MACRODANTIN 100 MG CAPS 508335 NITROFURANTOIN MACROCRYSTAL Inactive TRANSDERM-SCOP 1.5 MG PT72 [...] at 7 days PERMETHRIN 5 % CREA 479322 PERMETHRIN Inactive WELLBUTRIN 75 MG TABS 2 times daily WELLBUTRIN 75 MG TABS 975921 BUPROPION HCL Inactive CYMBALTA 30 MG CPEP 1 cap by mouth daily CYMBALTA 30 MG CPEP 698578 DULOXETINE HCL Inactive AZITHROMYCIN 500 MG SOLR 1 po q day ALTA THROMYCIN 500 MG SOLR 612523 AZITHROMYCIN Inactive CINNAMON ALPHA LIPOIC AC CMPLX CAPS by mouth twice a d ay in AM by mouth twice a day in PM CINNAMON ALPHA LIPOIC AC CMPLX CAPS ALPHA LIPOIC [id number] CAPS Inactive MICARDIS HCT 80-12.5 MG TABS 1 qd MICARDI S HCT 80-12.5 MG TABS 920166 TELMISARTAN-HCTZ Inactive PRAVASTATIN SODIUM 20 MG TABS 1 tablet by mouth daily at bedtime PRAVASTATIN SODIUM 20 MG TABS 662349 PRAVASTATIN SODIUM Inactive FUROSEMIDE 20 MG TABS 1 pill by mouth daily if needed for edema FUROSEMIDE 20 MG TABS 983354 FUROSEMIDE Inactive METFORMIN HCL 500 MG TABS 1 bid METFORMIN HCL 500 MG TABS 189604 METFORMIN HCL Inactive B-12 1000 MCG CAPS 1 tab daily B-12 1000 MCG CAP S CYANOCOBALAMIN Inactive VITAMIN E 200 UNIT CAPS 1 cap po qd VITAMIN E 2 00 UNIT CAPS 8041590 VITAMIN E Inactive [facility] MELATONIN 5-10 MG CR-TABS Take one by mouth daily at bedtime [facility] MELATONIN 5-10 MG CR-TABS MELATONIN-PYRIDOXI NE Inactive LORTAB 7.5-500 MG TABS take one po Q6 hours LORTAB 7.5-500 MG TABS HYDROCODONE-ACETAMINOPHEN Inactive AMOXICILLIN 500 MG CAPS 2 po BID x 10 days AMOXICILLIN 500 MG CAPS 001294 AMOXICILLIN Inactive AZITHROMYCIN 250 MG TABS take 2 po today then take 1 po days 2-5 AZITHROMYCIN 250 MG TABS 7801900 AZITHROMYCIN Inactiv e LEVAQUIN 500 MG TABS 1 pill by mouth daily LEVAQUIN 500 MG TABS 064344 LEVOFLOXACIN Inactive AUGMENTIN 875-125 MG TABS 1 pill by mouth twice daily AUGMENTIN 875-125 MG TABS 496898 AMOXICILLIN-POT CLAVULANATE Inacti ve Vital Signs Date [...] ... - Chemistry sodium, serum 142 mmol/L 772-356 2349/02/27 potassium, serum 4.7 mmol/L 3.5-5.2 chloride, serum [...] mg/g{creat} 0-2 9 cholesterol, serum 168 mg/dL 782-360 4236/02/27 triglyceride, serum, fasting 101 mg/dL 30-200 HDL [...] CBC - Chemistry sodium, serum 139 mmol/L 604-316 6197/10/31 potassium, serum 4.5 mmol/L 3.5-5.2 chloride, serum [...] mg/dL Encounters Code Encounter Date Provider Facility CPT-56043 Level 3 Est. Patient 12:56:37 CDT Bertrand marquez DO [facility] CPT-42673 Level 3 Est. Patient 19:12:03 CDT Yoli tolbert MD PhD [facility] CPT-95564 Level 3 Est. Patient 14:36:01 CDT Yoli tolbert MD PhD [facility] CPT-49027 Level 2 Est. Patient 08:00:22 CDT Jcarlos dc MD [facility]-93974 Level 3 Est. Patient 19:06:[address] [facility] CPT-56743 Level 3 Est. Patient 10:08:23 INFORMATION DEVELOPER Bertrand marquez [facility] CPT-86143 Level 3 Est. Patient 16:37:54 INFORMATION DEVELOPER Bertrand marquez [facility] CPT-39089 Level 3 Est. Patient 11:31:59 INFORMATION DEVELOPER Bertrand marquez [facility] CPT-46650 Level 3 Est. Patient 10:20:08 CDT Adolfo villasenor [facility] CPT-33402 Level 3 Est. Patient 13:45:20 CDT Sanket buckley [facility] CPT-25533 Level 3 Est. Patient 12:51:06 CDT Adolfo villasenor [facility] CPT-70964 Level 3 Est. Patient 11:22:51 INFORMATION DEVELOPER Yoli tolbert MD PhD [facility] CPT-87619 Level 3 Est. Patient 13:33:[address] [facility] Procedures Code Procedure Name Date Entry Date Standard Desc ription CPT-33799 Knee comp 4/> V 11:58:06 INFORMATION DEVELOPER
--- OUTSIDE RECORDS SUMMARY | 2019-11-13 10:45 | XMS REPORT | Clinical Summary ---
Author Author Admin, Enrique Adasmon Organization [facility] Address Unknown Phone Allergies, Adverse Reactions, [...] MD PhD Scabies [facility] DIABETES V18.0 Active Liila Clemons RN Family history of diabetes mellitus [...] TID PRN for muscle pain CYCLOBENZAPRINE HCL 51661487790 Active Brittni Ventura MANAGER NEWS Active AMLODIPINE BESYLATE 5 MG TABS 1 tablet by mouth daily for bl ood pressure AMLODIPINE BESYLATE 98914614977 Active Bertrand Patel DO Active MICARDIS 80 MG TABS 1 tablet daily for blood pressure TELMISARTAN 16996090430 Active Bertrand Patel DO Active MICARDIS HCT 80-12.5 MG TABS 1 qd TELMISARTA N-HCTZ 97152825862 No Longer Active Bertrand Patel DO Active FUROSEMIDE 20 MG TABS take one po PRN FUROSEMIDE 07879367060 Active Bertrand Patel DO Active CINNAMON ALPHA LIPOIC AC CMPLX CAPS by mouth twice a d ay in AM by mouth twice a day in PM ALPHA LIPOIC [id number] CAPS 360691 22582 No Longer Active Bertrand Patel DO Active AZITHROMYCIN 500 MG SOLR 1 po q day AZITHROMYCI N 73479422264 No Longer Active Bertrand Patel DO Active CYMBALTA 30 MG CPEP 1 cap by mouth daily DULOXE CATHI HCL 89033776775 No Longer Active Bertrand Patel DO Active CYMBALTA 60 MG CPEP 1 cap by mouth daily DULOXE CATHI HCL 40135742211 Active Bertrand Patel DO Active WELLBUTRIN 75 MG TABS 2 times daily BUPROPION H CL 47769188396 No Longer Active Bertrand Patel DO Active [facility] MELATONIN 5-10 MG CR-TABS Take one by mouth daily at bedtime 20 15/04/08 MELATONIN-PYRIDOXINE 50513119246 Active Bertrand Patel DO Activ e LORTAB 7.5-500 MG TABS take one po Q6 hours HYDROCODONE-ACETAMINOPHEN 45152444326 Active Bertrand Patel DO Active PROAIR HFA 108 (90 BASE) MCG/ACT AERS take one to two puffs po Q4-6 hour prn cough and shortness of breath ALBUTEROL SULFATE 5627869985 1 Active Adolfo OSORIO Active AZITHROMYCIN 250 MG TABS take 2 po today then take 1 po days 2-5 AZITHROMYCIN 60842888336 No Longer Active Adolfo OSORIO Active VITAMIN E 200 UNIT CAPS 1 cap po qd VITAMIN E 5380718154 5 Active Adolfo OSORIO Active PERMETHRIN 5 % CREA apply neck to toes tonight a nd then rinse off in morning. repeat at 7 days PERMETHRIN 44018130893 No Longer Active Adolfo OSORIO Active AMOXICILLIN 500 MG CAPS 2 po BID x 10 days AMOX ICILLIN 16278849595 No Longer Active Yoli Mercado MD PhD Active ALPRAZOLAM 0.5 MG TAB 1 tab by mouth tid ALPRAZOL AM 39965487089 Active Bertrand Patel DO Active PRAVASTATIN SODIUM 20 MG TABS 1 tablet by mouth daily at bedtime 20 05/12/02 PRAVASTATIN SODIUM 94397285442 Active Bertrand Patel DO Active B-12 1000 MCG CAPS 1 tab daily CYANOCOBALAMIN 9897027 2732 Active Bertrand Patel DO Active INSUPEN ULTRAFIN 31G X 6 MM MISC USE DIRECTED 03/04 INSULIN PEN NEEDLE 74582461630 No Longer Active Bertrand Jacklyn Patel DO Active TRANSDERM-SCOP 1.5 MG PT72 1 patch applied behind ear q 3 day 20 04/13/28 SCOPOLAMINE BASE 51001504022 No Longer Active Bertrand Jacklyn Patel DO Active MACRODANTIN 100 MG CAPS one p.o. b.i.d. x2 weeks 03/04 NITROFURANTOIN MACROCRYSTAL 35473316038 No Longer Active Bertrand Jacklyn Patel DO Active METFORMIN HCL 500 MG TABS 1 bid METFORMIN HCL 10629292 898 Active Bertrand Patel DO Active MACRODANTIN 100 MG CAPS one p.o. b.i.d. x2 weeks 03/04 MACRODANTIN 100 MG CAPS 537583 NITROFURANTOIN MACROCRYSTAL Inactive TRANSDERM-SCOP 1.5 MG PT72 [...] at 7 days PERMETHRIN 5 % CREA 660561 PERMETHRIN Inactive WELLBUTRIN 75 MG TABS 2 times daily WELLBUTRIN 75 MG TABS 500756 BUPROPION HCL Inactive CYMBALTA 30 MG CPEP 1 cap by mouth daily CYMBALTA 30 MG CPEP 007423 DULOXETINE HCL Inactive AZITHROMYCIN 500 MG SOLR 1 po q day ALTA THROMYCIN 500 MG SOLR 463563 AZITHROMYCIN Inactive CINNAMON ALPHA LIPOIC AC CMPLX CAPS by mouth twice a d ay in AM by mouth twice a day in PM CINNAMON ALPHA LIPOIC AC CMPLX CAPS ALPHA LIPOIC [id number] CAPS Inactive MICARDIS HCT 80-12.5 MG TABS 1 qd MICARDI S HCT 80-12.5 MG TABS 350934 TELMISARTAN-HCTZ Inactive AMOXICILLIN 500 MG CAPS 2 po BID x 10 days AMOXICILLIN 500 MG CAPS 569239 AMOXICILLIN Inactive AZITHROMYCIN 250 MG TABS take 2 po today then take 1 po days 2-5 AZITHROMYCIN 250 MG TABS 1417558 AZITHROMYCIN Inactiv e Vital Signs Date Name [...] - Chem istry sodium, serum 144 mmol/L 487-432 7914/06/18 potassium, serum 4.4 mmol/L 3.5-5.2 chloride, serum 101 mmol/L 98-107 carbon dioxide, venous blood 31.0 mmol/L 21.0-32 .0 blood glucose 50 mg/dL 65-110 calcium, serum 8.7 mg/dL 8.5-10.1 urea nitrogen, blood 20 mg/dL 7-18 creatinine, serum 1.00 mg/dL 0.60-1.30 Lab Report: CBC, Comp. Metabolic Panel, Thyroid Stimulating Hormone (L), ... - Chemistry sodium, serum 142 mmol/L 414-026 5703/02/27 potassium, serum 4.7 mmol/L 3.5-5.2 chloride, serum [...] mg/g{creat} 0-2 9 cholesterol, serum 168 mg/dL 864-370 0064/02/27 triglyceride, serum, fasting 101 mg/dL 30-200 HDL [...] 6.3 % 4.3-6.0 sodium, serum 143 mmol/L 768-058 2674/06/10 potassium, serum 5.0 mmol/L 3.5-5.2 chloride, serum [...] 0.30 mg/dL 0.00-1.00 cholesterol, serum 140 mg/dL 164-604 0832/11/08 triglyceride, serum, fasting 76 mg/dL 30-200 HDL cholesterol, serum 60 mg/dL 32-96 LDL cholesterol, serum 65 mg/dL 0-130 sodium, serum 143 mmol/L 817-483 8552/11/08 potassium, serum 4.8 mmol/L 3.5-5.2 chloride, serum [...] 5.0-8.5 Encounters Code Encounter Date Provider Facility CPT-29749 Level 2 Est. Patient 08:00:22 CDT Jcarlos dc MD [facility] CPT-11687 Level 3 Est. Patient 19:06:55 CDT Bertrand marquez [facility] CPT-15155 Level 3 Est. Patient 10:08:23 TIE IN 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 Bertrand maqruez [facility]-46360 Level 3 Est. Patient 16:37:54 TIE IN 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 Bertrand marquez [facility] CPT-87229 Level 3 Est. Patient 11:31:59 TIE IN 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 Bertrand marquez [facility] CPT-60197 Level 3 Est. Patient 10:20:08 CDT Adolfo villasenor [facility] CPT-51853 Level 3 Est. Patient 13:45:20 CDT Sanket buckley [facility] CPT-12723 Level 3 Est. Patient 12:51:06 CDT Adolfo villasenor [facility] CPT-84303 Level 3 Est. Patient 11:22:51 TIE IN 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 Yoli tolbert MD PhD [facility]-06505 Level 3 Est. Patient 13:33:19 CDT Bertrand marquez [facility] Procedures Code Procedure Name Date Entry Date Standard Desc ription CPT-59864 Knee comp 4/> V 11:58:06 TIE IN 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
--- OUTSIDE RECORDS SUMMARY | 2019-11-13 10:45 | XMS REPORT | Clinical Summary ---
Author Author Admin, Enrique Adamson Organization [facility] Address Unknown Phone Allergies, Adverse Reactions, [...] TID PRN for muscle pain CYCLOBENZAPRINE HCL 76662458852 Active Brittni Ventura INFORMATION TECHNOLOGY ASSISTANT Active AMLODIPINE BESYLATE 5 MG TABS 1 tablet by mouth daily for bl ood pressure AMLODIPINE BESYLATE 20837067613 Active Bertrand Patel DO Active MICARDIS 80 MG TABS 1 tablet daily for blood pressure TELMISARTAN 86691010811 Active Bertrand Patel DO Active MICARDIS HCT 80-12.5 MG TABS 1 qd TELMISARTA N-HCTZ 29309187485 No Longer Active Bertrand Patel DO Active FUROSEMIDE 20 MG TABS take one po PRN FUROSEMIDE 94717307260 Active Bertrand Patel DO Active CINNAMON ALPHA LIPOIC AC CMPLX CAPS by mouth twice a d ay in AM by mouth twice a day in PM ALPHA LIPOIC [id number] CAPS 158585 34520 No Longer Active Bertrand Patel DO Active AZITHROMYCIN 500 MG SOLR 1 po q day AZITHROMYCI N 34876461434 No Longer Active Bertrand Patel DO Active CYMBALTA 30 MG CPEP 1 cap by mouth daily DULOXE CATHI HCL 10470137323 No Longer Active Bertrand Patel DO Active CYMBALTA 60 MG CPEP 1 cap by mouth daily DULOXE CATHI HCL 54374092068 Active Bertrand Patel DO Active WELLBUTRIN 75 MG TABS 2 times daily BUPROPION H CL 88678246775 No Longer Active Bertrand Patel DO Active [facility] MELATONIN 5-10 MG CR-TABS Take one by mouth daily at bedtime 20 15/04/08 MELATONIN-PYRIDOXINE 35530356921 Active Bertrand Patel DO Activ e LORTAB 7.5-500 MG TABS take one po Q6 hours HYDROCODONE-ACETAMINOPHEN 57288016113 Active Bertrand Patel DO Active PROAIR HFA 108 (90 BASE) MCG/ACT AERS take one to two puffs po Q4-6 hour prn cough and shortness of breath ALBUTEROL SULFATE 7876828196 1 Active Adolfo OSORIO Active AZITHROMYCIN 250 MG TABS take 2 po today then take 1 po days 2-5 AZITHROMYCIN 80861642295 No Longer Active Adolfo OSORIO Active VITAMIN E 200 UNIT CAPS 1 cap po qd VITAMIN E 2608196652 5 Active Adolfo OSORIO Active PERMETHRIN 5 % CREA apply neck to toes tonight a nd then rinse off in morning. repeat at 7 days PERMETHRIN 12257591022 No Longer Active Adolfo OSORIO Active AMOXICILLIN 500 MG CAPS 2 po BID x 10 days AMOX ICILLIN 28407706636 No Longer Active Yoli Mercado MD PhD Active ALPRAZOLAM 0.5 MG TAB 1 tab by mouth tid ALPRAZOL AM 73721172184 Active Bertrand Patel DO Active PRAVASTATIN SODIUM 20 MG TABS 1 tablet by mouth daily at bedtime 20 05/12/02 PRAVASTATIN SODIUM 03382786452 Active Bertrand Patel DO Active B-12 1000 MCG CAPS 1 tab daily CYANOCOBALAMIN 9480648 2732 Active Bertrand Patel DO Active INSUPEN ULTRAFIN 31G X 6 MM MISC USE DIRECTED 03/04 INSULIN PEN NEEDLE 82611538946 No Longer Active Bertrand Patel DO Active TRANSDERM-SCOP 1.5 MG PT72 1 patch applied behind ear q 3 day 20 04/13/28 SCOPOLAMINE BASE 31353031842 No Longer Active Bertrand Patel DO Active MACRODANTIN 100 MG CAPS one p.o. b.i.d. x2 weeks 03/04 NITROFURANTOIN MACROCRYSTAL 95510605049 No Longer Active Bertrand Patel DO Active METFORMIN HCL 500 MG TABS 1 bid METFORMIN HCL 47461965 898 Active Bertrand Patel DO Active CINNAMON ALPHA LIPOIC AC CMPLX CAPS by mouth twice a d ay in AM by mouth twice a day in PM CINNAMON ALPHA LIPOIC AC CMPLX CAPS ALPHA LIPOIC [id number] CAPS Inactive AMOXICILLIN 500 MG CAPS 2 po BID x 10 days AMOXICILLIN 500 MG CAPS 324662 AMOXICILLIN Inactive MACRODANTIN 100 MG CAPS one p.o. b.i.d. x2 weeks 03/04 MACRODANTIN 100 MG CAPS 804428 NITROFURANTOIN MACROCRYSTAL Inactive TRANSDERM-SCOP 1.5 MG PT72 1 patch applied behind ear q 3 day 20 04/13/28 TRANSDERM-SCOP 1.5 MG PT72 SCOPOLAMINE BASE Inac tive WELLBUTRIN 75 MG TABS 2 times daily WELLBUTRIN 75 MG TABS 416367 BUPROPION HCL Inactive PERMETHRIN 5 % CREA apply neck to toes tonight a nd then rinse off in morning. repeat at 7 days PERMETHRIN 5 % CREA 742572 PERMETHRIN Inactive AZITHROMYCIN 250 MG TABS take 2 po today then take 1 po days 2-5 AZITHROMYCIN 250 MG TABS 6903873 AZITHROMYCIN Inactiv e AZITHROMYCIN 500 MG SOLR 1 po q day ALTA THROMYCIN 500 MG SOLR 284091 AZITHROMYCIN Inactive MICARDIS HCT 80-12.5 MG TABS 1 qd MICARDI S HCT 80-12.5 MG TABS 586522 TELMISARTAN-HCTZ Inactive CYMBALTA 30 MG CPEP 1 cap by mouth daily CYMBALTA 30 MG CPEP 812221 DULOXETINE HCL Inactive INSUPEN ULTRAFIN 31G X [...] - Chem istry sodium, serum 144 mmol/L 126-929 3197/06/18 potassium, serum 4.4 mmol/L 3.5-5.2 chloride, serum 101 mmol/L 98-107 carbon dioxide, venous blood 31.0 mmol/L 21.0-32 .0 blood glucose 50 mg/dL 65-110 calcium, serum 8.7 mg/dL 8.5-10.1 urea nitrogen, blood 20 mg/dL 7-18 creatinine, serum 1.00 mg/dL 0.60-1.30 Lab Report: CBC, Comp. Metabolic Panel, Thyroid Stimulating Hormone (L), ... - Chemistry sodium, serum 142 mmol/L 431-103 4854/02/27 potassium, serum 4.7 mmol/L 3.5-5.2 chloride, serum [...] mg/g{creat} 0-2 9 cholesterol, serum 168 mg/dL 695-622 8927/02/27 triglyceride, serum, fasting 101 mg/dL 30-200 HDL [...] 6.3 % 4.3-6.0 sodium, serum 143 mmol/L 296-940 0881/06/10 potassium, serum 5.0 mmol/L 3.5-5.2 chloride, serum [...] 0.30 mg/dL 0.00-1.00 cholesterol, serum 140 mg/dL 827-785 9788/11/08 triglyceride, serum, fasting 76 mg/dL 30-200 HDL cholesterol, serum 60 mg/dL 32-96 LDL cholesterol, serum 65 mg/dL 0-130 sodium, serum 143 mmol/L 058-818 8782/11/08 potassium, serum 4.8 mmol/L 3.5-5.2 chloride, serum [...] 5.0-8.5 Encounters Code Encounter Date Provider Facility CPT-59785 Level 2 Est. Patient 08:00:22 CDT Jcarlos dc MD [facility] CPT-98691 Level 3 Est. Patient 19:06:55 CDT Bertrand marquez [facility] CPT-59218 Level 3 Est. Patient 10:08:23 SPORTS TEAM MANAGER Bertrand marquez [facility]-81834 Level 3 Est. Patient 16:37:54 SPORTS TEAM MANAGER Bertrand marquez [facility] CPT-88429 Level 3 Est. Patient 11:31:59 SPORTS TEAM MANAGER Bertrand marquez [facility] CPT-47379 Level 3 Est. Patient 10:20:08 CDT Adolfo villasenor [facility] CPT-98164 Level 3 Est. Patient 13:45:20 CDT Sanket buckley [facility] CPT-82144 Level 3 Est. Patient 12:51:06 CDT Adolfo villasenor [facility] CPT-24637 Level 3 Est. Patient 11:22:51 SPORTS TEAM MANAGER Yoli tolbert MD PhD [facility]-09736 Level 3 Est. Patient 13:33:19 CDT Bertrand marquez [facility] Procedures Code Procedure Name Date Entry Date Standard Desc ription CPT-73337 Knee comp 4/> V 11:58:06 SPORTS TEAM MANAGER
--- OUTSIDE RECORDS SUMMARY | 2019-11-13 10:45 | XMS REPORT | Clinical Summary ---
Author Author Admin, Enrique Adamson Organization [facility] Address Unknown Phone Unavailable Allergies, [...] 784.0 Active Bertrand Patel DO He adache SCABIES ICD-133.0 Inactive Yoli Mercado MD PhD [...] one by mouth daily at bedtime MELATONIN-PYRIDOXINE 61515822568 No Longer Active Bertrand Patel DO Active VITAMIN E 200 UNIT CAPS 1 cap po qd VITAMIN E 316 88032083 No Longer Active Bertrand Patel DO Active B-12 1000 MCG CAPS 1 tab daily CYANOCOBALAMIN 31 529503220 No Longer Active Bertrand Patel DO Active METFORMIN HCL 500 MG TABS 1 bid METFORMIN HCL 23937813555 No Longer Active Bertrand Patel DO Active FUROSEMIDE 20 MG TABS 1 pill by mouth daily if needed for edema FUROSEMIDE 66516166663 No Longer Active Bertrand Patel DO Act j[place] PRAVASTATIN SODIUM 20 MG TABS 1 tablet by mouth daily at bedtime PRAVASTATIN SODIUM 86544687116 No Longer Active Bertrand Patel DO Active AUGMENTIN 875-125 MG TABS 1 pill by mouth twice daily AMOXICILLIN-POT CLAVULANATE 84802989631 No Longer Active Yoli Mercado MD PhD Active LEVAQUIN 500 MG TABS 1 pill by mouth daily LEVO FLOXACIN 82922917458 No Longer Active Yoli Mercado MD PhD Active CYCLOBENZAPRINE HCL 10 MG TABS Take 1 tab TID PRN for muscle pain CYCLOBENZAPRINE HCL 29762169309 Active 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 Randall 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 AMLODIPINE BESYLATE 5 MG TABS 1 tablet by mouth daily for bl ood pressure AMLODIPINE BESYLATE 87696086608 Active Yoli Polk hD Active MICARDIS 80 MG TABS 1 tablet daily for blood pressure TELMISARTAN 76496864571 Active Bertrand Patel DO Active MICARDIS HCT 80-12.5 MG TABS 1 qd TELMISARTA N-HCTZ 08477542386 No Longer Active Bertrand Patel DO Active CINNAMON ALPHA LIPOIC AC CMPLX CAPS by mouth twice a d ay in AM by mouth twice a day in PM ALPHA LIPOIC [id number] CAPS 189428 41662 No Longer Active Bertrand Patel DO Active AZITHROMYCIN 500 MG SOLR 1 po q day AZITHROMYCI N 95567382197 No Longer Active Bertrand Patel DO Active CYMBALTA 30 MG CPEP 1 cap by mouth daily DULOXE CATHI HCL 85927236177 No Longer Active Bertrand Patel DO Active CYMBALTA 60 MG CPEP 1 cap by mouth daily DULOXE CATHI HCL 83767208841 Active Bertrand Patel DO Active WELLBUTRIN 75 MG TABS 2 times daily BUPROPION H CL 07854695896 No Longer Active Bertrand Patel DO Active LORTAB 7.5-500 MG TABS take one po Q6 hours HYDROCODONE-ACETAMINOPHEN Active Bertrand Patel DO Active PROAIR HFA 108 (90 BASE) MCG/ACT AERS take one to two puffs po Q4-6 hour prn cough and shortness of breath ALBUTEROL SULFATE 9817425146 1 Active Adolfo OSORIO Active AZITHROMYCIN 250 MG TABS take 2 po today then take 1 po days 2-5 AZITHROMYCIN 51391908664 No Longer Active Adolfo OSORIO Active PERMETHRIN 5 % CREA apply neck to toes tonight a nd then rinse off in morning. repeat at 7 days PERMETHRIN 11931910531 No Longer Active Adolfo OSORIO Active AMOXICILLIN 500 MG CAPS 2 po BID x 10 days AMOX ICILLIN 93571167877 No Longer Active Yoli Mercado MD PhD Active ALPRAZOLAM 0.5 MG TAB 1 tab by mouth tid ALPRAZOL AM 22506433146 Active Bertrand Patel DO Active INSUPEN ULTRAFIN 31G X 6 MM MISC USE DIRECTED 03/04 INSULIN PEN NEEDLE 03217063832 No Longer Active Bertrand Patel DO Active TRANSDERM-SCOP 1.5 MG PT72 1 patch applied behind ear q 3 day 20 04/13/28 SCOPOLAMINE BASE 12915706190 No Longer Active Bertrand Patel DO Active MACRODANTIN 100 MG CAPS one p.o. b.i.d. x2 weeks 03/04 NITROFURANTOIN MACROCRYSTAL 17724819887 No Longer Active Bertrand Patel DO Active MACRODANTIN 100 MG CAPS one p.o. b.i.d. x2 weeks 03/04 MACRODANTIN 100 MG CAPS 078226 NITROFURANTOIN MACROCRYSTAL Inactive TRANSDERM-SCOP 1.5 MG PT72 [...] at 7 days PERMETHRIN 5 % CREA 487624 PERMETHRIN Inactive WELLBUTRIN 75 MG TABS 2 times daily WELLBUTRIN 75 MG TABS 575975 BUPROPION HCL Inactive CYMBALTA 30 MG CPEP 1 cap by mouth daily CYMBALTA 30 MG CPEP 073287 DULOXETINE HCL Inactive AZITHROMYCIN 500 MG SOLR 1 po q day ALTA THROMYCIN 500 MG SOLR 437783 AZITHROMYCIN Inactive CINNAMON ALPHA LIPOIC AC CMPLX CAPS by mouth twice a d ay in AM by mouth twice a day in PM CINNAMON ALPHA LIPOIC AC CMPLX CAPS ALPHA LIPOIC NETN-DH-VQODLDHR CAPS Inactive MICARDIS HCT 80-12.5 MG TABS 1 qd MICARDI S HCT 80-12.5 MG TABS 172085 TELMISARTAN-HCTZ Inactive PRAVASTATIN SODIUM 20 MG TABS 1 tablet by mouth daily at bedtime PRAVASTATIN SODIUM 20 MG TABS 476213 PRAVASTATIN SODIUM Inactive FUROSEMIDE 20 MG TABS 1 pill by mouth daily if needed for edema FUROSEMIDE 20 MG TABS 161520 FUROSEMIDE Inactive METFORMIN HCL 500 MG TABS 1 bid METFORMIN HCL 500 MG TABS 763759 METFORMIN HCL Inactive B-12 1000 MCG CAPS 1 tab daily B-12 1000 MCG CAP S CYANOCOBALAMIN Inactive VITAMIN E 200 UNIT CAPS 1 cap po qd VITAMIN E 2 00 UNIT CAPS 7510753 VITAMIN E Inactive [facility] MELATONIN 5-10 MG CR-TABS Take one by mouth daily at bedtime [facility] MELATONIN 5-10 MG CR-TABS MELATONIN-PYRIDOXI NE Inactive AMOXICILLIN 500 MG CAPS 2 po BID x 10 days AMOXICILLIN 500 MG CAPS 148101 AMOXICILLIN Inactive AZITHROMYCIN 250 MG TABS take 2 po today then take 1 po days 2-5 AZITHROMYCIN 250 MG TABS 5765294 AZITHROMYCIN Inactiv e LEVAQUIN 500 MG TABS 1 pill by mouth daily LEVAQUIN 500 MG TABS 086645 LEVOFLOXACIN Inactive AUGMENTIN 875-125 MG TABS 1 pill by mouth twice daily AUGMENTIN 875-125 MG TABS 482523 AMOXICILLIN-POT CLAVULANATE Inacti ve Vital Signs Date [...] ... - Chemistry sodium, serum 142 mmol/L 434-778 4402/02/27 potassium, serum 4.7 mmol/L 3.5-5.2 chloride, serum [...] mg/g{creat} 0-2 9 cholesterol, serum 168 mg/dL 214-722 1469/02/27 triglyceride, serum, fasting 101 mg/dL 30-200 HDL [...] CBC - Chemistry sodium, serum 139 mmol/L 741-629 6299/10/31 potassium, serum 4.5 mmol/L 3.5-5.2 chloride, serum [...] mg/dL Encounters Code Encounter Date Provider Facility CPT-19599 Level 3 Est. Patient 12:56:37 CDT Bertrand marquez [facility] CPT-75458 Level 3 Est. Patient 19:12:03 CDT Yoli tolbert MD PhD [facility] CPT-37305 Level 3 Est. Patient 14:36:01 CDT Yoli tolbert MD PhD [facility] CPT-47848 Level 2 Est. Patient 08:00:22 CDT Jcarlos dc MD [facility] CPT-76551 Level 3 Est. Patient 19:06:55 CDT Bertrand marquez [facility] CPT-08620 Level 3 Est. Patient 10:08:23 PAD MAKING 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 Bertrand marquez [facility] CPT-05412 Level 3 Est. Patient 16:37:54 PAD MAKING 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 Bertrand marquez [facility] CPT-17312 Level 3 Est. Patient 11:31:59 PAD MAKING 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 Bertrand marquez [facility] CPT-44301 Level 3 Est. Patient 10:20:08 CDT Adolfo villasenor [facility] CPT-36276 Level 3 Est. Patient 13:45:20 CDT Sanket buckley [facility] CPT-88084 Level 3 Est. Patient 12:51:06 CDT Adolfo villasenor [facility] CPT-79031 Level 3 Est. Patient 11:22:51 PAD MAKING 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 Yoli tolbert MD PhD [facility] CPT-46265 Level 3 Est. Patient 13:33:19 CDT Bertrand marquez [facility] Procedures Code Procedure Name Date Entry Date Standard Desc ription CPT-89016 Knee comp 4/> V 11:58:06 PAD MAKING 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
--- OUTSIDE RECORDS SUMMARY | 2019-11-13 10:45 | XMS REPORT | Clinical Summary ---
[...] HOURS BY MOUTH NEEDED FOR PAIN HYDROCODONE-ACETAMINOPHEN [id number] Acti ve Nirmal Robbins RN Active LORTAB 7.5-500 MG TABS take one po Q6 hours HYDROCODONE-ACETAMINOPHEN No Longer Active Nirmal Robbins RN Active [facility] MELATONIN 5-10 MG CR-TABS Take one by mouth daily at bedtime MELATONIN-PYRIDOXINE 62300452442 No Longer Active Bertrand Patel DO Active VITAMIN E 200 UNIT CAPS 1 cap po qd VITAMIN E 316 78766634 No Longer Active Bertrand Patel DO Active B-12 1000 MCG CAPS 1 tab daily CYANOCOBALAMIN 31 672370894 No Longer Active Bertrand Patel DO Active METFORMIN HCL 500 MG TABS 1 bid METFORMIN HCL 29103994344 No Longer Active Bertrand Patel DO Active FUROSEMIDE 20 MG TABS 1 pill by mouth daily if needed for edema FUROSEMIDE 78914377673 No Longer Active Bertrand Patel DO Act j[place] PRAVASTATIN SODIUM 20 MG TABS 1 tablet by mouth daily at bedtime PRAVASTATIN SODIUM 23966865085 No Longer Active Bertrand Patel DO Active AUGMENTIN 875-125 MG TABS 1 pill by mouth twice daily AMOXICILLIN-POT CLAVULANATE 25403665373 No Longer Active Yoli Mercado MD PhD Active LEVAQUIN 500 MG TABS 1 pill by mouth daily LEVO FLOXACIN 73255232703 No Longer Active Yoli Mercado MD PhD Active CYCLOBENZAPRINE HCL 10 MG TABS Take 1 tab TID PRN for muscle pain CYCLOBENZAPRINE HCL 97417435698 Active Birttni Perrin Prakash 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 TEACHER Active AMLODIPINE BESYLATE 5 MG TABS 1 tablet by mouth daily for bl ood pressure AMLODIPINE BESYLATE 69488503004 Active Bertrand Patel DO Active MICARDIS 80 MG TABS 1 tablet daily for blood pressure TELMISARTAN 25871935387 Active Bertrand Patel DO Active MICARDIS HCT 80-12.5 MG TABS 1 qd TELMISARTA N-HCTZ 66767158327 No Longer Active Bertrand Patel DO Active CINNAMON ALPHA LIPOIC AC CMPLX CAPS by mouth twice a d ay in AM by mouth twice a day in PM ALPHA LIPOIC [id number] CAPS 887310 41028 No Longer Active Bertrand Patel DO Active AZITHROMYCIN 500 MG SOLR 1 po q day AZITHROMYCI N 51385231724 No Longer Active Bertrand Patel DO Active CYMBALTA 30 MG CPEP 1 cap by mouth daily DULOXE CATHI HCL 40747143337 No Longer Active Bertrand Patel DO Active CYMBALTA 60 MG CPEP 1 cap by mouth daily DULOXE CATHI HCL 72118436593 Active Bertrand Patel DO Active WELLBUTRIN 75 MG TABS 2 times daily BUPROPION H CL 37377867719 No Longer Active Bertrand Patel DO Active PROAIR HFA 108 (90 BASE) MCG/ACT AERS take one to two puffs po Q4-6 hour prn cough and shortness of breath ALBUTEROL SULFATE 1263928485 1 Active Adolfo OSORIO Active AZITHROMYCIN 250 MG TABS take 2 po today then take 1 po days 2-5 AZITHROMYCIN 12368215004 No Longer Active Adolfo OSORIO Active PERMETHRIN 5 % CREA apply neck to toes tonight a nd then rinse off in morning. repeat at 7 days PERMETHRIN 72638360225 No Longer Active Adolfo OSORIO Active AMOXICILLIN 500 MG CAPS 2 po BID x 10 days AMOX ICILLIN 92671053966 No Longer Active Yoli Mercado MD PhD Active ALPRAZOLAM 0.5 MG TAB 1 tab by mouth tid ALPRAZOL AM 71608484808 Active Bertrand Patel DO Active INSUPEN ULTRAFIN 31G X 6 MM MISC USE DIRECTED 03/04 INSULIN PEN NEEDLE 74723855097 No Longer Active Bertrand Patel DO Active TRANSDERM-SCOP 1.5 MG PT72 1 patch applied behind ear q 3 day 20 04/13/28 SCOPOLAMINE BASE 99090074198 No Longer Active Bertrand Patel DO Active MACRODANTIN 100 MG CAPS one p.o. b.i.d. x2 weeks 03/04 NITROFURANTOIN MACROCRYSTAL 02754799015 No Longer Active Bertrand Patel DO Active MACRODANTIN 100 MG CAPS one p.o. b.i.d. x2 weeks 03/04 MACRODANTIN 100 MG CAPS 745685 NITROFURANTOIN MACROCRYSTAL Inactive TRANSDERM-SCOP 1.5 MG PT72 [...] at 7 days PERMETHRIN 5 % CREA 938705 PERMETHRIN Inactive WELLBUTRIN 75 MG TABS 2 times daily WELLBUTRIN 75 MG TABS 090570 BUPROPION HCL Inactive CYMBALTA 30 MG CPEP 1 cap by mouth daily CYMBALTA 30 MG CPE 112948 DULOXETINE HCL Inactive AZITHROMYCIN 500 MG SOLR 1 po q day ALTA THROMYCIN 500 MG SOLR 033828 AZITHROMYCIN Inactive CINNAMON ALPHA LIPOIC AC CMPLX CAPS by mouth twice a d ay in AM by mouth twice a day in PM CINNAMON ALPHA LIPOIC AC CMPLX CAPS ALPHA LIPOIC [id number] CAPS Inactive MICARDIS HCT 80-12.5 MG TABS 1 qd MICARDI S HCT 80-12.5 MG TABS 472658 TELMISARTAN-HCTZ Inactive PRAVASTATIN SODIUM 20 MG TABS 1 tablet by mouth daily at bedtime PRAVASTATIN SODIUM 20 MG TABS 293191 PRAVASTATIN SODIUM Inactive FUROSEMIDE 20 MG TABS 1 pill by mouth daily if needed for edema FUROSEMIDE 20 MG TABS 770306 FUROSEMIDE Inactive METFORMIN HCL 500 MG TABS 1 bid METFORMIN HCL 500 MG TABS 424253 METFORMIN HCL Inactive B-12 1000 MCG CAPS 1 tab daily B-12 1000 MCG CAP S CYANOCOBALAMIN Inactive VITAMIN E 200 UNIT CAPS 1 cap po qd VITAMIN E 2 00 UNIT CAPS 9652474 VITAMIN E Inactive [facility] MELATONIN 5-10 MG CR-TABS Take one by mouth daily at bedtime [facility] MELATONIN 5-10 MG CR-TABS MELATONIN-PYRIDOXI NE Inactive LORTAB 7.5-500 MG TABS take one po Q6 hours LORTAB 7.5-500 MG TABS HYDROCODONE-ACETAMINOPHEN Inactive AMOXICILLIN 500 MG CAPS 2 po BID x 10 days AMOXICILLIN 500 MG CAPS 818753 AMOXICILLIN Inactive AZITHROMYCIN 250 MG TABS take 2 po today then take 1 po days 2-5 AZITHROMYCIN 250 MG TABS 2179989 AZITHROMYCIN Inactiv e LEVAQUIN 500 MG TABS 1 pill by mouth daily LEVAQUIN 500 MG TABS 628504 LEVOFLOXACIN Inactive AUGMENTIN 875-125 MG TABS 1 pill by mouth twice daily AUGMENTIN 875-125 MG TABS 211384 AMOXICILLIN-POT CLAVULANATE Inacti ve Vital Signs Date [...] ... - Chemistry sodium, serum 142 mmol/L 740-078 0521/02/27 potassium, serum 4.7 mmol/L 3.5-5.2 chloride, serum [...] mg/g{creat} 0-2 9 cholesterol, serum 168 mg/dL 252-194 2329/02/27 triglyceride, serum, fasting 101 mg/dL 30-200 HDL [...] CBC - Chemistry sodium, serum 139 mmol/L 793-685 8703/10/31 potassium, serum 4.5 mmol/L 3.5-5.2 chloride, serum [...] mg/dL Encounters Code Encounter Date Provider Facility CPT-36189 Level 3 Est. Patient 12:56:37 CDT Bertrand marquez DO [facility] CPT-17227 Level 3 Est. Patient 19:12:03 CDT Yoli tolbert MD PhD [facility] CPT-88850 Level 3 Est. Patient 14:36:01 CDT Yoli tolbert MD PhD [facility] CPT-67208 Level 2 Est. Patient 08:00:22 CDT Jcarlos dc MD [facility]-97354 Level 3 Est. Patient 19:06:[address] [facility] CPT-35382 Level 3 Est. Patient 10:08:23 ALL SOURCE ANALYST Bertrand marquez [facility] CPT-79963 Level 3 Est. Patient 16:37:54 ALL SOURCE ANALYST Bertrand marquez [facility] CPT-82108 Level 3 Est. Patient 11:31:59 ALL SOURCE ANALYST Bertrand marquez [facility] CPT-64277 Level 3 Est. Patient 10:20:[address] [facility] CPT-54148 Level 3 Est. Patient 13:45:[address] [facility] CPT-20577 Level 3 Est. Patient 12:51:[address] [facility] CPT-17822 Level 3 Est. Patient 11:22:51 ALL SOURCE ANALYST Yoli tolbert MD PhD [facility] CPT-88670 Level 3 Est. Patient 13:33:[address] [facility] Procedures Code Procedure Name Date Entry Date Standard Desc ription CPT-40901 Knee comp 4/> V 11:58:06 ALL SOURCE ANALYST
--- OUTSIDE RECORDS SUMMARY | 2019-11-13 10:46 | XMS REPORT | Clinical Summary ---
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 AMLODIPINE BESYLATE 5 MG TABS 1 tablet by mouth daily for bl ood pressure AMLODIPINE BESYLATE 05528386738 Active Bertrand Patel DO Active MICARDIS 80 MG TABS 1 tablet daily for blood pressure TELMISARTAN 76877437432 Active Bertrand Patel DO Active MICARDIS HCT 80-12.5 MG TABS 1 qd TELMISARTA N-HCTZ 84280292607 No Longer Active Bertrand Patel DO Active FUROSEMIDE 20 MG TABS take one po PRN FUROSEMIDE 90713097542 Active Bertrand Patel DO Active CINNAMON ALPHA LIPOIC AC CMPLX CAPS by mouth twice a d ay in AM by mouth twice a day in PM ALPHA LIPOIC [id number] CAPS 871305 45486 No Longer Active Bertrand Patel DO Active AZITHROMYCIN 500 MG SOLR 1 po q day AZITHROMYCI N 31478728084 No Longer Active Bertrand Patel DO Active CYMBALTA 30 MG CPEP 1 cap by mouth daily DULOXE CATHI HCL 78223969802 No Longer Active Bertrand Patel DO Active CYMBALTA 60 MG CPEP 1 cap by mouth daily DULOXE CATHI HCL 86783029357 Active Bertrand Patel DO Active WELLBUTRIN 75 MG TABS 2 times daily BUPROPION H CL 92316417875 No Longer Active Bertrand Patel DO Active [facility] MELATONIN 5-10 MG CR-TABS Take one by mouth daily at bedtime 20 15/04/08 MELATONIN-PYRIDOXINE 30546668984 Active Bertrand Patel DO Activ e LORTAB 7.5-500 MG TABS take one po Q6 hours HYDROCODONE-ACETAMINOPHEN 56162653030 Active Bertrand Patel DO Active PROAIR HFA 108 (90 BASE) MCG/ACT AERS take one to two puffs po Q4-6 hour prn cough and shortness of breath ALBUTEROL SULFATE 9194922068 1 Active Adolfo OSORIO Active AZITHROMYCIN 250 MG TABS take 2 po today then take 1 po days 2-5 AZITHROMYCIN 93547216081 No Longer Active Adolfo OSORIO Active VITAMIN E 200 UNIT CAPS 1 cap po qd VITAMIN E 5746088632 5 Active Adolfo OSORIO Active PERMETHRIN 5 % CREA apply neck to toes tonight a nd then rinse off in morning. repeat at 7 days PERMETHRIN 80012816867 No Longer Active Adolfo OSORIO Active AMOXICILLIN 500 MG CAPS 2 po BID x 10 days AMOX ICILLIN 58702265175 No Longer Active Yoli Mercado MD PhD Active ALPRAZOLAM 0.5 MG TAB 1 tab by mouth tid ALPRAZOL AM 47618552145 Active Bertrand Patel DO Active PRAVASTATIN SODIUM 20 MG TABS 1 tablet by mouth daily at bedtime 20 05/12/02 PRAVASTATIN SODIUM 41928539579 Active Bertrand Patel DO Active B-12 1000 MCG CAPS 1 tab daily CYANOCOBALAMIN 3891072 2732 Active Bertrand Patel DO Active INSUPEN ULTRAFIN 31G X 6 MM MISC USE DIRECTED 03/04 INSULIN PEN NEEDLE 94487662739 No Longer Active Bertrand Patel DO Active TRANSDERM-SCOP 1.5 MG PT72 1 patch applied behind ear q 3 day 20 04/13/28 SCOPOLAMINE BASE 32770308919 No Longer Active Bertrand Patel DO Active MACRODANTIN 100 MG CAPS one p.o. b.i.d. x2 weeks 03/04 NITROFURANTOIN MACROCRYSTAL 69498339832 No Longer Active Bertrand Patel DO Active METFORMIN HCL 500 MG TABS 1 bid METFORMIN HCL 03548554 898 Active Darrian Woods MD Active MACRODANTIN 100 MG CAPS one p.o. b.i.d. x2 weeks 03/04 MACRODANTIN 100 MG CAPS 026603 NITROFURANTOIN MACROCRYSTAL Inactive TRANSDERM-SCOP 1.5 MG PT72 [...] at 7 days PERMETHRIN 5 % CREA 957882 PERMETHRIN Inactive WELLBUTRIN 75 MG TABS 2 times daily WELLBUTRIN 75 MG TABS 787574 BUPROPION HCL Inactive CYMBALTA 30 MG CPEP 1 cap by mouth daily CYMBALTA 30 MG CPEP 234207 DULOXETINE HCL Inactive AZITHROMYCIN 500 MG SOLR 1 po q day ALTA THROMYCIN 500 MG SOLR 182392 AZITHROMYCIN Inactive CINNAMON ALPHA LIPOIC AC CMPLX CAPS by mouth twice a d ay in AM by mouth twice a day in PM CINNAMON ALPHA LIPOIC AC CMPLX CAPS ALPHA LIPOIC [id number] CAPS Inactive MICARDIS HCT 80-12.5 MG TABS 1 qd MICARDI S HCT 80-12.5 MG TABS 432812 TELMISARTAN-HCTZ Inactive AMOXICILLIN 500 MG CAPS 2 po BID x 10 days AMOXICILLIN 500 MG CAPS 048933 AMOXICILLIN Inactive AZITHROMYCIN 250 MG TABS take 2 po today then take 1 po days 2-5 AZITHROMYCIN 250 MG TABS 0203511 AZITHROMYCIN Inactiv e Vital Signs Date Name Value Unit Range Description blood pressure, diastolic - 8462-4 92 mm[Hg] BP fredeirck blood pressure, systolic - 8480-6 146 mm[Hg] [...] ... - Chemistry sodium, serum 142 mmol/L 006-279 2186/02/27 potassium, serum 4.7 mmol/L 3.5-5.2 chloride, serum [...] mg/g{creat} 0-2 9 cholesterol, serum 168 mg/dL 524-677 0051/02/27 triglyceride, serum, fasting 101 mg/dL 30-200 HDL [...] % of total hemoglobin 6.6 % 4.3-6.0 potassium, serum 4.8 mmol/L 3.5-5.2 chloride, serum 103 mmol/L 98-107 carbon dioxide, venous blood 39.7 mmol/L 21.0-32 .0 blood glucose 75 mg/dL 65-110 calcium, serum 7.9 mg/dL 8.5-10.1 urea nitrogen, blood 13 mg/dL 7-18 creatinine, serum 0.70 mg/dL 0.60-1.30 sodium, serum 143 mmol/L 356-097 0251/11/08 LDL cholesterol, serum 65 mg/dL 0-130 HDL cholesterol, serum 60 mg/dL 32-96 triglyceride, serum, fasting 76 mg/dL 30-200 cholesterol, serum 140 mg/dL 130-200 Lab Report: [...] 5.0-8.5 Encounters Code Encounter Date Provider Facility CPT-52989 Level 2 Est. Patient 08:00:22 CDT Jcarlos dc MD [facility] CPT-63226 Level 3 Est. Patient 19:06:55 CDT Bertrand marquez [facility] CPT-26031 Level 3 Est. Patient 10:08:[address]GRAPHER Bertrand marquez [facility]-62020 Level 3 Est. Patient 16:37:[address]APHER Bertrand marquez [facility] CPT-31856 Level 3 Est. Patient 11:31:[address]APHER Bertrand marquez [facility] CPT-40216 Level 3 Est. Patient 10:20:08 CDT Adolfo villasenor [facility] CPT-06895 Level 3 Est. Patient 13:45:20 CDT Sanket buckley [facility] CPT-72481 Level 3 Est. Patient 12:51:06 CDT Adolfo villasenor [facility] CPT-95534 Level 3 Est. Patient 11:22:[address]APHER Yoli tolbert MD PhD [facility] CPT-56621 Level 3 Est. Patient 13:33:19 CDT Bertrand marquez DO [facility] Procedures Code Procedure Name Date Entry Date Standard Desc ription CPT-05570 Knee comp 4/> V 11:58:[address]APHER
--- OUTSIDE RECORDS SUMMARY | 2019-11-13 10:46 | XMS REPORT | Clinical Summary ---
Author Author Admin, Enrique Adamson Organization [facility] Address Unknown Phone Unavailable Allergies, [...] HOURS BY MOUTH NEEDED FOR PAIN HYDROCODONE-ACETAMINOPHEN [id number] Acti ve Nirmal Robbins RN Active LORTAB 7.5-500 MG TABS take one po Q6 hours HYDROCODONE-ACETAMINOPHEN No Longer Active Nirmal Robbins RN Active [facility] MELATONIN 5-10 MG CR-TABS Take one by mouth daily at bedtime MELATONIN-PYRIDOXINE 94670366861 No Longer Active Bertrand Patel DO Active VITAMIN E 200 UNIT CAPS 1 cap po qd VITAMIN E 316 42583390 No Longer Active Bertrand Patel DO Active B-12 1000 MCG CAPS 1 tab daily CYANOCOBALAMIN 31 349637584 No Longer Active Bertrand Patel DO Active METFORMIN HCL 500 MG TABS 1 bid METFORMIN HCL 64976660447 No Longer Active Bertrand Patel DO Active FUROSEMIDE 20 MG TABS 1 pill by mouth daily if needed for edema FUROSEMIDE 97208571249 No Longer Active Bertrand Patel DO Act jairo PRAVASTATIN SODIUM 20 MG TABS 1 tablet by mouth daily at bedtime PRAVASTATIN SODIUM 55713983414 No Longer Active Bertrand Patel DO Active AUGMENTIN 875-125 MG TABS 1 pill by mouth twice daily AMOXICILLIN-POT CLAVULANATE 69784424624 No Longer Active Yoli Mercado MD PhD Active LEVAQUIN 500 MG TABS 1 pill by mouth daily LEVO FLOXACIN 64223471369 No Longer Active Yoli Mercado MD PhD Active CYCLOBENZAPRINE HCL 10 MG TABS Take 1 tab TID PRN for muscle pain CYCLOBENZAPRINE HCL 94900661837 Active Brittni Perrin Prakash REPRODUCTION ARTIST Active AMLODIPINE BESYLATE 5 MG TABS 1 tablet by mouth daily for bl ood pressure AMLODIPINE BESYLATE 10816681321 Active Bertrand Patel DO Active MICARDIS 80 MG TABS 1 tablet daily for blood pressure TELMISARTAN 40197435000 Active Bertrand Patel DO Active MICARDIS HCT 80-12.5 MG TABS 1 qd TELMISARTA N-HCTZ 35806931584 No Longer Active Bertrand Patel DO Active CINNAMON ALPHA LIPOIC AC CMPLX CAPS by mouth twice a d ay in AM by mouth twice a day in PM ALPHA LIPOIC [id number] CAPS 967978 19991 No Longer Active Bertrand Patel DO Active AZITHROMYCIN 500 MG SOLR 1 po q day AZITHROMYCI N 08053040174 No Longer Active Bertrand Patel DO Active CYMBALTA 30 MG CPEP 1 cap by mouth daily DULOXE CTAHI HCL 01879183312 No Longer Active Bertrand Patel DO Active CYMBALTA 60 MG CPEP 1 cap by mouth daily DULOXE CATHI HCL 59606276452 Active Bertrand Patel DO Active WELLBUTRIN 75 MG TABS 2 times daily BUPROPION H CL 96589497861 No Longer Active Bertrand Patel DO Active PROAIR HFA 108 (90 BASE) MCG/ACT AERS take one to two puffs po Q4-6 hour prn cough and shortness of breath ALBUTEROL SULFATE 9859687346 1 Active Adolfo OSORIO Active AZITHROMYCIN 250 MG TABS take 2 po today then take 1 po days 2-5 AZITHROMYCIN 08256835649 No Longer Active Adolfo OSORIO Active PERMETHRIN 5 % CREA apply neck to toes tonight a nd then rinse off in morning. repeat at 7 days PERMETHRIN 82364412272 No Longer Active Adolfo OSORIO Active AMOXICILLIN 500 MG CAPS 2 po BID x 10 days AMOX ICILLIN 54581156377 No Longer Active Yoli Mercado MD PhD Active ALPRAZOLAM 0.5 MG TAB 1 tab by mouth tid ALPRAZOL AM 14216264498 Active Bertrand Patel DO Active INSUPEN ULTRAFIN 31G X 6 MM MISC USE DIRECTED 03/04 INSULIN PEN NEEDLE 32004102883 No Longer Active Bertrand Patel DO Active TRANSDERM-SCOP 1.5 MG PT72 1 patch applied behind ear q 3 day 20 04/13/28 SCOPOLAMINE BASE 93384792768 No Longer Active Bertrand Patel DO Active MACRODANTIN 100 MG CAPS one p.o. b.i.d. x2 weeks 03/04 NITROFURANTOIN MACROCRYSTAL 79547023592 No Longer Active Bertrand Patel DO Active MACRODANTIN 100 MG CAPS one p.o. b.i.d. x2 weeks 03/04 MACRODANTIN 100 MG CAPS 528274 NITROFURANTOIN MACROCRYSTAL Inactive TRANSDERM-SCOP 1.5 MG PT72 [...] at 7 days PERMETHRIN 5 % CREA 865391 PERMETHRIN Inactive WELLBUTRIN 75 MG TABS 2 times daily WELLBUTRIN 75 MG TABS 060011 BUPROPION HCL Inactive CYMBALTA 30 MG CPEP 1 cap by mouth daily CYMBALTA 30 MG CPEP 520627 DULOXETINE HCL Inactive AZITHROMYCIN 500 MG SOLR 1 po q day ALTA THROMYCIN 500 MG SOLR 464923 AZITHROMYCIN Inactive CINNAMON ALPHA LIPOIC AC CMPLX CAPS by mouth twice a d ay in AM by mouth twice a day in PM CINNAMON ALPHA LIPOIC AC CMPLX CAPS ALPHA LIPOIC SIZO-NT-EBRCEDVM CAPS Inactive MICARDIS HCT 80-12.5 MG TABS 1 qd MICARDI S HCT 80-12.5 MG TABS 723020 TELMISARTAN-HCTZ Inactive PRAVASTATIN SODIUM 20 MG TABS 1 tablet by mouth daily at bedtime PRAVASTATIN SODIUM 20 MG TABS 283959 PRAVASTATIN SODIUM Inactive FUROSEMIDE 20 MG TABS 1 pill by mouth daily if needed for edema FUROSEMIDE 20 MG TABS 739838 FUROSEMIDE Inactive METFORMIN HCL 500 MG TABS 1 bid METFORMIN HCL 500 MG TABS 167670 METFORMIN HCL Inactive B-12 1000 MCG CAPS 1 tab daily B-12 1000 MCG CAP S CYANOCOBALAMIN Inactive VITAMIN E 200 UNIT CAPS 1 cap po qd VITAMIN E 2 00 UNIT CAPS 0823395 VITAMIN E Inactive [facility] MELATONIN 5-10 MG CR-TABS Take one by mouth daily at bedtime [facility] MELATONIN 5-10 MG CR-TABS MELATONIN-PYRIDOXI NE Inactive LORTAB 7.5-500 MG TABS take one po Q6 hours LORTAB 7.5-500 MG TABS HYDROCODONE-ACETAMINOPHEN Inactive AMOXICILLIN 500 MG CAPS 2 po BID x 10 days AMOXICILLIN 500 MG CAPS 635186 AMOXICILLIN Inactive AZITHROMYCIN 250 MG TABS take 2 po today then take 1 po days 2-5 AZITHROMYCIN 250 MG TABS 2058980 AZITHROMYCIN Inactiv e LEVAQUIN 500 MG TABS 1 pill by mouth daily LEVAQUIN 500 MG TABS 307023 LEVOFLOXACIN Inactive AUGMENTIN 875-125 MG TABS 1 pill by mouth twice daily AUGMENTIN 875-125 MG TABS 627222 AMOXICILLIN-POT CLAVULANATE Inacti ve Vital Signs Date [...] ... - Chemistry sodium, serum 142 mmol/L 223-114 9572/02/27 potassium, serum 4.7 mmol/L 3.5-5.2 chloride, serum [...] mg/g{creat} 0-2 9 cholesterol, serum 168 mg/dL 592-385 1526/02/27 triglyceride, serum, fasting 101 mg/dL 30-200 HDL [...] CBC - Chemistry sodium, serum 139 mmol/L 523-773 9664/10/31 potassium, serum 4.5 mmol/L 3.5-5.2 chloride, serum [...] mg/dL Encounters Code Encounter Date Provider Facility CPT-92926 Level 3 Est. Patient 12:56:37 CDT Bertrand marquez DO [facility] CPT-02510 Level 3 Est. Patient 19:12:03 CDT Yoli tolbert MD PhD [facility] CPT-90564 Level 3 Est. Patient 14:36:01 CDT Yoli tolbert MD PhD [facility] CPT-36846 Level 2 Est. Patient 08:00:22 CDT Jcarlos dc MD [facility]-78583 Level 3 Est. Patient 19:06:55 CDT Bertrand marquez [facility] CPT-52969 Level 3 Est. Patient 10:08:23 RN NURSERY Bertrand marquez [facility] CPT-80314 Level 3 Est. Patient 16:37:54 RN NURSERY Bertrand marquez [facility] CPT-58777 Level 3 Est. Patient 11:31:59 RN NURSERY Bertrand marquez [facility] CPT-91852 Level 3 Est. Patient 10:20:08 CDT Adolfo villasenor [facility] CPT-92494 Level 3 Est. Patient 13:45:20 CDT Sanket buckley [facility] CPT-07621 Level 3 Est. Patient 12:51:06 CDT Adolfo villasenor [facility] CPT-82632 Level 3 Est. Patient 11:22:51 RN NURSERY Yoli tolbert MD PhD [facility] CPT-43910 Level 3 Est. Patient 13:33:19 CDT Bertrand marquez [facility] Procedures Code Procedure Name Date Entry Date Standard Desc ription CPT-30755 Knee comp 4/> V 11:58:06 RN NURSERY
--- OUTSIDE RECORDS SUMMARY | 2019-11-13 10:46 | XMS REPORT | Clinical Summary ---
Author Author Admin, Enrique Adamson Organization [facility] Address Unknown Phone Unavailable Allergies, [...] HOURS BY MOUTH NEEDED FOR PAIN HYDROCODONE-ACETAMINOPHEN [id number] Acti ve Nirmal Robbins RN Active LORTAB 7.5-500 MG TABS take one po Q6 hours HYDROCODONE-ACETAMINOPHEN No Longer Active Nirmal Robbins RN Active [facility] MELATONIN 5-10 MG CR-TABS Take one by mouth daily at bedtime MELATONIN-PYRIDOXINE 86132131486 No Longer Active Bertrand Patel DO Active VITAMIN E 200 UNIT CAPS 1 cap po qd VITAMIN E 316 22220715 No Longer Active Bertrand Patel DO Active B-12 1000 MCG CAPS 1 tab daily CYANOCOBALAMIN 31 569407173 No Longer Active Bertrand Patel DO Active METFORMIN HCL 500 MG TABS 1 bid METFORMIN HCL 67379460267 No Longer Active Bertrand Patel DO Active FUROSEMIDE 20 MG TABS 1 pill by mouth daily if needed for edema FUROSEMIDE 35920465732 No Longer Active Bertrand Patel DO Act jairo PRAVASTATIN SODIUM 20 MG TABS 1 tablet by mouth daily at bedtime PRAVASTATIN SODIUM 79214915342 No Longer Active Bertrand Patel DO Active AUGMENTIN 875-125 MG TABS 1 pill by mouth twice daily AMOXICILLIN-POT CLAVULANATE 53164774904 No Longer Active Yoli Mercado MD PhD Active LEVAQUIN 500 MG TABS 1 pill by mouth daily LEVO FLOXACIN 48887147053 No Longer Active Yoli Mercado MD PhD Active CYCLOBENZAPRINE HCL 10 MG TABS Take 1 tab TID PRN for muscle pain CYCLOBENZAPRINE HCL 81648165412 Active Brittni Perrin Prakash SYSTEMS DEVELOPER Active AMLODIPINE BESYLATE 5 MG TABS 1 tablet by mouth daily for bl ood pressure AMLODIPINE BESYLATE 82909253342 Active Bertrand Patel DO Active MICARDIS 80 MG TABS 1 tablet daily for blood pressure TELMISARTAN 72203060914 Active Bertrand Patel DO Active MICARDIS HCT 80-12.5 MG TABS 1 qd TELMISARTA N-HCTZ 68181144342 No Longer Active Bertrand Patel DO Active CINNAMON ALPHA LIPOIC AC CMPLX CAPS by mouth twice a d ay in AM by mouth twice a day in PM ALPHA LIPOIC [id number] CAPS 392547 64625 No Longer Active Bertrand Patel DO Active AZITHROMYCIN 500 MG SOLR 1 po q day AZITHROMYCI N 81533968384 No Longer Active Bertrand Patel DO Active CYMBALTA 30 MG CPEP 1 cap by mouth daily DULOXE CATHI HCL 07036077745 No Longer Active Bertrand Patel DO Active CYMBALTA 60 MG CPEP 1 cap by mouth daily DULOXE CATHI HCL 51173414504 Active Bertrand Patel DO Active WELLBUTRIN 75 MG TABS 2 times daily BUPROPION H CL 31567028893 No Longer Active Bertrand Patel DO Active PROAIR HFA 108 (90 BASE) MCG/ACT AERS take one to two puffs po Q4-6 hour prn cough and shortness of breath ALBUTEROL SULFATE 2417163787 1 Active Adolfo OSORIO Active AZITHROMYCIN 250 MG TABS take 2 po today then take 1 po days 2-5 AZITHROMYCIN 74473738259 No Longer Active Adolfo OSORIO Active PERMETHRIN 5 % CREA apply neck to toes tonight a nd then rinse off in morning. repeat at 7 days PERMETHRIN 93809234208 No Longer Active Adolfo OSORIO Active AMOXICILLIN 500 MG CAPS 2 po BID x 10 days AMOX ICILLIN 13860711095 No Longer Active Yoli Mercado MD PhD Active ALPRAZOLAM 0.5 MG TAB 1 tab by mouth tid ALPRAZOL AM 05463462984 Active Bertrand Patel DO Active INSUPEN ULTRAFIN 31G X 6 MM MISC USE DIRECTED 03/04 INSULIN PEN NEEDLE 03403116584 No Longer Active Bertrand Patel DO Active TRANSDERM-SCOP 1.5 MG PT72 1 patch applied behind ear q 3 day 20 04/13/28 SCOPOLAMINE BASE 30575434566 No Longer Active Bertrand Patel DO Active MACRODANTIN 100 MG CAPS one p.o. b.i.d. x2 weeks 03/04 NITROFURANTOIN MACROCRYSTAL 24761734620 No Longer Active Bertrand Patel DO Active MACRODANTIN 100 MG CAPS one p.o. b.i.d. x2 weeks 03/04 MACRODANTIN 100 MG CAPS 929998 NITROFURANTOIN MACROCRYSTAL Inactive TRANSDERM-SCOP 1.5 MG PT72 [...] at 7 days PERMETHRIN 5 % CREA 077732 PERMETHRIN Inactive WELLBUTRIN 75 MG TABS 2 times daily WELLBUTRIN 75 MG TABS 149065 BUPROPION HCL Inactive CYMBALTA 30 MG CPEP 1 cap by mouth daily CYMBALTA 30 MG CPEP 785953 DULOXETINE HCL Inactive AZITHROMYCIN 500 MG SOLR 1 po q day ALTA THROMYCIN 500 MG SOLR 336752 AZITHROMYCIN Inactive CINNAMON ALPHA LIPOIC AC CMPLX CAPS by mouth twice a d ay in AM by mouth twice a day in PM CINNAMON ALPHA LIPOIC AC CMPLX CAPS ALPHA LIPOIC [id number] CAPS Inactive MICARDIS HCT 80-12.5 MG TABS 1 qd MICARDI S HCT 80-12.5 MG TABS 074456 TELMISARTAN-HCTZ Inactive PRAVASTATIN SODIUM 20 MG TABS 1 tablet by mouth daily at bedtime PRAVASTATIN SODIUM 20 MG TABS 764896 PRAVASTATIN SODIUM Inactive FUROSEMIDE 20 MG TABS 1 pill by mouth daily if needed for edema FUROSEMIDE 20 MG TABS 230583 FUROSEMIDE Inactive METFORMIN HCL 500 MG TABS 1 bid METFORMIN HCL 500 MG TABS 247987 METFORMIN HCL Inactive B-12 1000 MCG CAPS 1 tab daily B-12 1000 MCG CAP S CYANOCOBALAMIN Inactive VITAMIN E 200 UNIT CAPS 1 cap po qd VITAMIN E 2 00 UNIT CAPS 3361289 VITAMIN E Inactive [facility] MELATONIN 5-10 MG CR-TABS Take one by mouth daily at bedtime [facility] MELATONIN 5-10 MG CR-TABS MELATONIN-PYRIDOXI NE Inactive LORTAB 7.5-500 MG TABS take one po Q6 hours LORTAB 7.5-500 MG TABS HYDROCODONE-ACETAMINOPHEN Inactive AMOXICILLIN 500 MG CAPS 2 po BID x 10 days AMOXICILLIN 500 MG CAPS 503205 AMOXICILLIN Inactive AZITHROMYCIN 250 MG TABS take 2 po today then take 1 po days 2-5 AZITHROMYCIN 250 MG TABS 9544251 AZITHROMYCIN Inactiv e LEVAQUIN 500 MG TABS 1 pill by mouth daily LEVAQUIN 500 MG TABS 897206 LEVOFLOXACIN Inactive AUGMENTIN 875-125 MG TABS 1 pill by mouth twice daily AUGMENTIN 875-125 MG TABS 534198 AMOXICILLIN-POT CLAVULANATE Inacti ve Vital Signs Date [...] ... - Chemistry sodium, serum 142 mmol/L 523-399 6378/02/27 potassium, serum 4.7 mmol/L 3.5-5.2 chloride, serum [...] mg/g{creat} 0-2 9 cholesterol, serum 168 mg/dL 310-055 9422/02/27 triglyceride, serum, fasting 101 mg/dL 30-200 HDL [...] CBC - Chemistry sodium, serum 139 mmol/L 362-602 4176/10/31 potassium, serum 4.5 mmol/L 3.5-5.2 chloride, serum [...] mg/dL Encounters Code Encounter Date Provider Facility CPT-87373 Level 3 Est. Patient 12:56:37 CDT Bertrand marquez DO [facility] CPT-47561 Level 3 Est. Patient 19:12:03 CDT Yoli tolbert MD PhD [facility] CPT-31122 Level 3 Est. Patient 14:36:01 CDT Yoli tolbert MD PhD [facility] CPT-15104 Level 2 Est. Patient 08:00:22 CDT Jcarlos dc MD [facility]-78222 Level 3 Est. Patient 19:06:55 CDT Bertrand marquez [facility] CPT-64474 Level 3 Est. Patient 10:08:23 FIRE PREVENTION FORESTER Bertrand marquez [facility] CPT-38796 Level 3 Est. Patient 16:37:54 FIRE PREVENTION FORESTER Bertrand marquez [facility] CPT-08764 Level 3 Est. Patient 11:31:59 FIRE PREVENTION FORESTER Bertrand marquez [facility] CPT-68543 Level 3 Est. Patient 10:20:08 CDT Adolfo villasenor [facility] CPT-63982 Level 3 Est. Patient 13:45:20 CDT Sanket buckley [facility] CPT-16897 Level 3 Est. Patient 12:51:06 CDT Adolfo villasenor [facility] CPT-81285 Level 3 Est. Patient 11:22:51 FIRE PREVENTION FORESTER Yoli tolbert MD PhD [facility] CPT-19254 Level 3 Est. Patient 13:33:19 CDT Bertrand marquez [facility] Procedures Code Procedure Name Date Entry Date Standard Desc ription CPT-02755 Knee comp 4/> V 11:58:06 FIRE PREVENTION FORESTER
--- OUTSIDE RECORDS SUMMARY | 2019-11-13 10:46 | XMS REPORT ---
Author Author [facility] Medic al StaffCAMILO Organization [facility] Address [address], [place] [address] Phone [phone] Care Team Providers Care Water Treatment Plant Operator Name Role Phone RC MARQUEZ DO PP [phone] Summary purpose TRANSITION OF CARE AUTO GENERATION [...]
--- OUTSIDE RECORDS SUMMARY | 2019-11-13 10:46 | XMS REPORT | Clinical Summary ---
Author Author Admin, Enrique Adamson Organization [facility] Address Unknown Phone Allergies, Adverse Reactions, [...] TID PRN for muscle pain CYCLOBENZAPRINE HCL 38628420135 Active Brittni Ventura CLINICAL EDUCATION ACADEMIC COORDINATOR Active AMLODIPINE BESYLATE 5 MG TABS 1 tablet by mouth daily for bl ood pressure AMLODIPINE BESYLATE 20705085167 Active Bertrand Patel DO Active MICARDIS 80 MG TABS 1 tablet daily for blood pressure TELMISARTAN 28034823120 Active Bertrand Patel DO Active MICARDIS HCT 80-12.5 MG TABS 1 qd TELMISARTA N-HCTZ 52191387401 No Longer Active Bertrand Patel DO Active FUROSEMIDE 20 MG TABS take one po PRN FUROSEMIDE 78591173215 Active Bertrand Patel DO Active CINNAMON ALPHA LIPOIC AC CMPLX CAPS by mouth twice a d ay in AM by mouth twice a day in PM ALPHA LIPOIC [id number] CAPS 320161 63740 No Longer Active Bertrand Patel DO Active AZITHROMYCIN 500 MG SOLR 1 po q day AZITHROMYCI N 38851600293 No Longer Active Bertrand Patel DO Active CYMBALTA 30 MG CPEP 1 cap by mouth daily DULOXE CATHI HCL 31261392361 No Longer Active Bertrand Patel DO Active CYMBALTA 60 MG CPEP 1 cap by mouth daily DULOXE CATHI HCL 34654242120 Active Bertrand Patel DO Active WELLBUTRIN 75 MG TABS 2 times daily BUPROPION H CL 40125553909 No Longer Active Bertrand Patel DO Active [facility] MELATONIN 5-10 MG CR-TABS Take one by mouth daily at bedtime 20 15/04/08 MELATONIN-PYRIDOXINE 07558345414 Active Bertrand Patel DO Activ e LORTAB 7.5-500 MG TABS take one po Q6 hours HYDROCODONE-ACETAMINOPHEN 57420440577 Active Bertrand Patel DO Active PROAIR HFA 108 (90 BASE) MCG/ACT AERS take one to two puffs po Q4-6 hour prn cough and shortness of breath ALBUTEROL SULFATE 3932969909 1 Active Adolfo OSORIO Active AZITHROMYCIN 250 MG TABS take 2 po today then take 1 po days 2-5 AZITHROMYCIN 16853217587 No Longer Active Adolfo OSORIO Active VITAMIN E 200 UNIT CAPS 1 cap po qd VITAMIN E 3603846033 5 Active Adolfo OSORIO Active PERMETHRIN 5 % CREA apply neck to toes tonight a nd then rinse off in morning. repeat at 7 days PERMETHRIN 09078009118 No Longer Active Adolfo OSORIO Active AMOXICILLIN 500 MG CAPS 2 po BID x 10 days AMOX ICILLIN 88487029349 No Longer Active Yoli Mercado MD PhD Active ALPRAZOLAM 0.5 MG TAB 1 tab by mouth tid ALPRAZOL AM 13932127178 Active Bertrnad Patel DO Active PRAVASTATIN SODIUM 20 MG TABS 1 tablet by mouth daily at bedtime 20 05/12/02 PRAVASTATIN SODIUM 97042832464 Active Bertrand Patel DO Active B-12 1000 MCG CAPS 1 tab daily CYANOCOBALAMIN 5048563 2732 Active Bertrand Patel DO Active INSUPEN ULTRAFIN 31G X 6 MM MISC USE DIRECTED 03/04 INSULIN PEN NEEDLE 58029264556 No Longer Active Bertrand Jacklyn Patel DO Active TRANSDERM-SCOP 1.5 MG PT72 1 patch applied behind ear q 3 day 20 04/13/28 SCOPOLAMINE BASE 04917410727 No Longer Active Bertrand Jacklyn Patel DO Active MACRODANTIN 100 MG CAPS one p.o. b.i.d. x2 weeks 03/04 NITROFURANTOIN MACROCRYSTAL 48111342172 No Longer Active Bertrand Jacklyn Patel DO Active METFORMIN HCL 500 MG TABS 1 bid METFORMIN HCL 38654892 898 Active Bertrand Patel DO Active MACRODANTIN 100 MG CAPS one p.o. b.i.d. x2 weeks 03/04 MACRODANTIN 100 MG CAPS 105681 NITROFURANTOIN MACROCRYSTAL Inactive TRANSDERM-SCOP 1.5 MG PT72 [...] at 7 days PERMETHRIN 5 % CREA 309823 PERMETHRIN Inactive WELLBUTRIN 75 MG TABS 2 times daily WELLBUTRIN 75 MG TABS 085346 BUPROPION HCL Inactive CYMBALTA 30 MG CPEP 1 cap by mouth daily CYMBALTA 30 MG CPEP 796589 DULOXETINE HCL Inactive AZITHROMYCIN 500 MG SOLR 1 po q day ALTA THROMYCIN 500 MG SOLR 033008 AZITHROMYCIN Inactive CINNAMON ALPHA LIPOIC AC CMPLX CAPS by mouth twice a d ay in AM by mouth twice a day in PM CINNAMON ALPHA LIPOIC AC CMPLX CAPS ALPHA LIPOIC [id number] CAPS Inactive MICARDIS HCT 80-12.5 MG TABS [address] 80-12.5 MG TABS TELMISARTAN-HCTZ Inactive AMOXICILLIN 500 MG CAPS 2 po BID x 10 days AMOXICILLIN 500 MG CAPS 714899 AMOXICILLIN Inactive AZITHROMYCIN 250 MG TABS take 2 po today then take 1 po days 2-5 AZITHROMYCIN 250 MG TABS 4821949 AZITHROMYCIN Inactiv e Vital Signs Date Name [...] - Chem istry sodium, serum 144 mmol/L 412-887 8165/06/18 potassium, serum 4.4 mmol/L 3.5-5.2 chloride, serum 101 mmol/L 98-107 carbon dioxide, venous blood 31.0 mmol/L 21.0-32 .0 blood glucose 50 mg/dL 65-110 calcium, serum 8.7 mg/dL 8.5-10.1 urea nitrogen, blood 20 mg/dL 7-18 creatinine, serum 1.00 mg/dL 0.60-1.30 Lab Report: CBC, Comp. Metabolic Panel, Thyroid Stimulating Hormone (L), ... - Chemistry sodium, serum 142 mmol/L 053-721 5976/02/27 potassium, serum 4.7 mmol/L 3.5-5.2 chloride, serum [...] mg/g{creat} 0-2 9 cholesterol, serum 168 mg/dL 083-733 4508/02/27 triglyceride, serum, fasting 101 mg/dL 30-200 [...] 6.3 % 4.3-6.0 sodium, serum 143 mmol/L 474-756 7139/06/10 potassium, serum 5.0 mmol/L 3.5-5.2 chloride, serum [...] 0.30 mg/dL 0.00-1.00 cholesterol, serum 140 mg/dL 297-109 3443/11/08 triglyceride, serum, fasting 76 mg/dL 30-200 HDL cholesterol, serum 60 mg/dL 32-96 LDL cholesterol, serum 65 mg/dL 0-130 sodium, serum 143 mmol/L 599-005 0238/11/08 potassium, serum 4.8 mmol/L 3.5-5.2 chloride, serum [...] 5.0-8.5 Encounters Code Encounter Date Provider Facility CPT-63734 Level 2 Est. Patient 08:00:22 CDT Jcarlos dc MD [facility] CPT-50269 Level 3 Est. Patient 19:06:55 CDT Bertrand marquez [facility] CPT-43667 Level 3 Est. Patient 10:08:23 CLINICAL PROGRAMMER Bertrand marquez [facility] CPT-55054 Level 3 Est. Patient 16:37:54 CLINICAL PROGRAMMER Bertrand marquez [facility] CPT-70415 Level 3 Est. Patient 11:31:59 CLINICAL PROGRAMMER Bertrand marquez [facility] CPT-94747 Level 3 Est. Patient 10:20:08 CDT Adolfo villasenor [facility] CPT-87560 Level 3 Est. Patient 13:45:20 CDT Sanket buckley [facility] CPT-89874 Level 3 Est. Patient 12:51:06 CDT Adolfo villasenor [facility] CPT-76733 Level 3 Est. Patient 11:22:51 CLINICAL PROGRAMMER Yoli tolbert MD PhD [facility]-29461 Level 3 Est. Patient 13:33:19 CDT Bertrand marquez [facility] Procedures Code Procedure Name Date Entry Date Standard Desc ription CPT-80866 Knee comp 4/> V 11:58:06 CLINICAL PROGRAMMER
--- OUTSIDE RECORDS SUMMARY | 2019-11-13 10:47 | XMS REPORT | Clinical Summary ---
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 AMLODIPINE BESYLATE 5 MG TABS 1 tablet by mouth daily for bl ood pressure AMLODIPINE BESYLATE 30423405286 Active Bertrand Patel DO Active MICARDIS 80 MG TABS 1 tablet daily for blood pressure TELMISARTAN 33863231654 Active Bertrand Patel DO Active MICARDIS HCT 80-12.5 MG TABS 1 qd TELMISARTA N-HCTZ 43005218733 No Longer Active Bertrand Patel DO Active FUROSEMIDE 20 MG TABS take one po PRN FUROSEMIDE 91471206575 Active Bertrand Patel DO Active CINNAMON ALPHA LIPOIC AC CMPLX CAPS by mouth twice a d ay in AM by mouth twice a day in PM ALPHA LIPOIC [id number] CAPS 820229 59272 No Longer Active Bertrand Patel DO Active AZITHROMYCIN 500 MG SOLR 1 po q day AZITHROMYCI N 91828908815 No Longer Active Bertrand Patel DO Active CYMBALTA 30 MG CPEP 1 cap by mouth daily DULOXE CATHI HCL 76360370079 No Longer Active Bertrand Patel DO Active CYMBALTA 60 MG CPEP 1 cap by mouth daily DULOXE CATHI HCL 99791423140 Active Bertrand Patel DO Active WELLBUTRIN 75 MG TABS 2 times daily BUPROPION H CL 69244725835 No Longer Active Bertrand Patel DO Active [facility] MELATONIN 5-10 MG CR-TABS Take one by mouth daily at bedtime 20 15/04/08 MELATONIN-PYRIDOXINE 05343406221 Active Bertrand Patel DO Activ e LORTAB 7.5-500 MG TABS take one po Q6 hours HYDROCODONE-ACETAMINOPHEN 45666715809 Active Bertrand Patel DO Active PROAIR HFA 108 (90 BASE) MCG/ACT AERS take one to two puffs po Q4-6 hour prn cough and shortness of breath ALBUTEROL SULFATE 0178854591 1 Active Adolfo OSORIO Active AZITHROMYCIN 250 MG TABS take 2 po today then take 1 po days 2-5 AZITHROMYCIN 66038210450 No Longer Active Adolfo OSORIO Active VITAMIN E 200 UNIT CAPS 1 cap po qd VITAMIN E 6667536218 5 Active Adolfo OSORIO Active PERMETHRIN 5 % CREA apply neck to toes tonight a nd then rinse off in morning. repeat at 7 days PERMETHRIN 36262533107 No Longer Active Adolfo OSORIO Active AMOXICILLIN 500 MG CAPS 2 po BID x 10 days AMOX ICILLIN 14163657360 No Longer Active Yoli Mercado MD PhD Active ALPRAZOLAM 0.5 MG TAB 1 tab by mouth tid ALPRAZOL AM 27273941891 Active Bertrand Patel DO Active PRAVASTATIN SODIUM 20 MG TABS 1 tablet by mouth daily at bedtime 20 05/12/02 PRAVASTATIN SODIUM 67846995086 Active Bertrand Patel DO Active B-12 1000 MCG CAPS 1 tab daily CYANOCOBALAMIN 7142843 2732 Active Bertrand Patel DO Active INSUPEN ULTRAFIN 31G X 6 MM MISC USE DIRECTED 03/04 INSULIN PEN NEEDLE 84303531569 No Longer Active Bertrand Jacklyn Patel DO Active TRANSDERM-SCOP 1.5 MG PT72 1 patch applied behind ear q 3 day 20 04/13/28 SCOPOLAMINE BASE 78417686529 No Longer Active Bertrand Jacklyn Patel DO Active MACRODANTIN 100 MG CAPS one p.o. b.i.d. x2 weeks 03/04 NITROFURANTOIN MACROCRYSTAL 62492607431 No Longer Active Bertrand Jacklyn Patel DO Active METFORMIN HCL 500 MG TABS 1 bid METFORMIN HCL 03135689 898 Active Bertrand Patel DO Active MACRODANTIN 100 MG CAPS one p.o. b.i.d. x2 weeks 03/04 MACRODANTIN 100 MG CAPS 739813 NITROFURANTOIN MACROCRYSTAL Inactive TRANSDERM-SCOP 1.5 MG PT72 [...] at 7 days PERMETHRIN 5 % CREA 896782 PERMETHRIN Inactive WELLBUTRIN 75 MG TABS 2 times daily WELLBUTRIN 75 MG TABS 795950 BUPROPION HCL Inactive CYMBALTA 30 MG CPEP 1 cap by mouth daily CYMBALTA 30 MG CPEP 673457 DULOXETINE HCL Inactive AZITHROMYCIN 500 MG SOLR 1 po q day ALTA THROMYCIN 500 MG SOLR 312706 AZITHROMYCIN Inactive CINNAMON ALPHA LIPOIC AC CMPLX CAPS by mouth twice a d ay in AM by mouth twice a day in PM CINNAMON ALPHA LIPOIC AC CMPLX CAPS ALPHA LIPOIC [id number]-[id number]-[id number] CAPS Inactive MICARDIS HCT 80-12.5 MG TABS [address] 80-12.5 MG TABS TELMISARTAN-HCTZ Inactive AMOXICILLIN 500 MG CAPS 2 po BID x 10 days AMOXICILLIN 500 MG CAPS 259298 AMOXICILLIN Inactive AZITHROMYCIN 250 MG TABS take 2 po today then take 1 po days 2-5 AZITHROMYCIN 250 MG TABS 4634150 AZITHROMYCIN Inactiv e Vital Signs Date Name [...] - Chem istry sodium, serum 144 mmol/L 083-302 3372/06/18 potassium, serum 4.4 mmol/L 3.5-5.2 chloride, serum 101 mmol/L 98-107 carbon dioxide, venous blood 31.0 mmol/L 21.0-32 .0 blood glucose 50 mg/dL 65-110 calcium, serum 8.7 mg/dL 8.5-10.1 urea nitrogen, blood 20 mg/dL 7-18 creatinine, serum 1.00 mg/dL 0.60-1.30 Lab Report: CBC, Comp. Metabolic Panel, Thyroid Stimulating Hormone (L), ... - Chemistry sodium, serum 142 mmol/L 118-420 6459/02/27 potassium, serum 4.7 mmol/L 3.5-5.2 chloride, serum [...] mg/g{creat} 0-2 9 cholesterol, serum 168 mg/dL 692-574 8764/02/27 triglyceride, serum, fasting 101 mg/dL 30-200 HDL [...] 6.3 % 4.3-6.0 sodium, serum 143 mmol/L 894-358 6225/06/10 potassium, serum 5.0 mmol/L 3.5-5.2 chloride, serum [...] 0.30 mg/dL 0.00-1.00 cholesterol, serum 140 mg/dL 654-629 8957/11/08 triglyceride, serum, fasting 76 mg/dL 30-200 HDL cholesterol, serum 60 mg/dL 32-96 LDL cholesterol, serum 65 mg/dL 0-130 sodium, serum 143 mmol/L 674-305 4512/11/08 potassium, serum 4.8 mmol/L 3.5-5.2 chloride, serum [...] 5.0-8.5 Encounters Code Encounter Date Provider Facility CPT-57040 Level 2 Est. Patient 08:00:22 CDT Jcarlos dc MD [facility] CPT-22194 Level 3 Est. Patient 19:06:55 CDT Bertrand marquez [facility] CPT-73644 Level 3 Est. Patient 10:08:23 CONSTRUCTION CREW MEMBER Bertrand marquez [facility] CPT-85030 Level 3 Est. Patient 16:37:54 CONSTRUCTION CREW MEMBER Bertrand marquez [facility] CPT-12865 Level 3 Est. Patient 11:31:59 CONSTRUCTION CREW MEMBER Bertrand marquez [facility] CPT-22227 Level 3 Est. Patient 10:20:08 CDT Adolfo villasenor [facility] CPT-05304 Level 3 Est. Patient 13:45:20 CDT Sanket buckley [facility] CPT-47186 Level 3 Est. Patient 12:51:06 CDT Adolfo villasenor [facility] CPT-38856 Level 3 Est. Patient 11:22:51 CONSTRUCTION CREW MEMBER Yoli tolbert MD PhD [facility]-17222 Level 3 Est. Patient 13:33:19 CDT Bertrand marquez [facility] Procedures Code Procedure Name Date Entry Date Standard Desc ription CPT-97411 Knee comp 4/> V 11:58:06 CONSTRUCTION CREW MEMBER
--- OUTSIDE RECORDS SUMMARY | 2019-11-13 10:47 | XMS REPORT | Clinical Summary ---
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 AMLODIPINE BESYLATE 5 MG TABS 1 tablet by mouth daily for bl ood pressure AMLODIPINE BESYLATE 82337500051 Active Bertrand Patel DO Active MICARDIS 80 MG TABS 1 tablet daily for blood pressure TELMISARTAN 59625298740 Active Bertrand Patel DO Active MICARDIS HCT 80-12.5 MG TABS 1 qd TELMISARTA N-HCTZ 67235685560 No Longer Active Bertrand Patel DO Active FUROSEMIDE 20 MG TABS take one po PRN FUROSEMIDE 28383263420 Active Bertrand Patel DO Active CINNAMON ALPHA LIPOIC AC CMPLX CAPS by mouth twice a d ay in AM by mouth twice a day in PM ALPHA LIPOIC [id number] CAPS 247094 98110 No Longer Active Bertrand Patel DO Active AZITHROMYCIN 500 MG SOLR 1 po q day AZITHROMYCI N 76582417708 No Longer Active Bertrand Patel DO Active CYMBALTA 30 MG CPEP 1 cap by mouth daily DULOXE CATHI HCL 68699375818 No Longer Active Bertrand Patel DO Active CYMBALTA 60 MG CPEP 1 cap by mouth daily DULOXE CATHI HCL 58375793713 Active Bertrand Patel DO Active WELLBUTRIN 75 MG TABS 2 times daily BUPROPION H CL 78489348492 No Longer Active Bertrand Patel DO Active [facility] MELATONIN 5-10 MG CR-TABS Take one by mouth daily at bedtime 20 15/04/08 MELATONIN-PYRIDOXINE 60640273301 Active Bertrand Patel DO Activ e LORTAB 7.5-500 MG TABS take one po Q6 hours HYDROCODONE-ACETAMINOPHEN 83330419696 Active Bertrand Patel DO Active PROAIR HFA 108 (90 BASE) MCG/ACT AERS take one to two puffs po Q4-6 hour prn cough and shortness of breath ALBUTEROL SULFATE 1048668919 1 Active Adolfo OSORIO Active AZITHROMYCIN 250 MG TABS take 2 po today then take 1 po days 2-5 AZITHROMYCIN 29241671770 No Longer Active Adolfo OSORIO Active VITAMIN E 200 UNIT CAPS 1 cap po qd VITAMIN E 2177219173 5 Active Adolfo OSORIO Active PERMETHRIN 5 % CREA apply neck to toes tonight a nd then rinse off in morning. repeat at 7 days PERMETHRIN 13179144903 No Longer Active Adolfo OSORIO Active AMOXICILLIN 500 MG CAPS 2 po BID x 10 days AMOX ICILLIN 40353211916 No Longer Active Yoli Mercado MD PhD Active ALPRAZOLAM 0.5 MG TAB 1 tab by mouth tid ALPRAZOL AM 25953308448 Active Bertrand Patel DO Active PRAVASTATIN SODIUM 20 MG TABS 1 tablet by mouth daily at bedtime 20 05/12/02 PRAVASTATIN SODIUM 84168263537 Active Bertrand Patel DO Active B-12 1000 MCG CAPS 1 tab daily CYANOCOBALAMIN 3601021 2732 Active Bertrand Patel DO Active INSUPEN ULTRAFIN 31G X 6 MM MISC USE DIRECTED 03/04 INSULIN PEN NEEDLE 66958617430 No Longer Active Bertrand Patel DO Active TRANSDERM-SCOP 1.5 MG PT72 1 patch applied behind ear q 3 day 20 04/13/28 SCOPOLAMINE BASE 94129760539 No Longer Active Bertrand Patel DO Active MACRODANTIN 100 MG CAPS one p.o. b.i.d. x2 weeks 03/04 NITROFURANTOIN MACROCRYSTAL 56671780372 No Longer Active Bertrand Patel DO Active METFORMIN HCL 500 MG TABS 1 bid METFORMIN HCL 55152509 898 Active Darrian Woods MD Active MACRODANTIN 100 MG CAPS one p.o. b.i.d. x2 weeks 03/04 MACRODANTIN 100 MG CAPS 729116 NITROFURANTOIN MACROCRYSTAL Inactive TRANSDERM-SCOP 1.5 MG PT72 [...] at 7 days PERMETHRIN 5 % CREA 713714 PERMETHRIN Inactive WELLBUTRIN 75 MG TABS 2 times daily WELLBUTRIN 75 MG TABS 114405 BUPROPION HCL Inactive CYMBALTA 30 MG CPEP 1 cap by mouth daily CYMBALTA 30 MG CPEP 654528 DULOXETINE HCL Inactive AZITHROMYCIN 500 MG SOLR 1 po q day ALTA THROMYCIN 500 MG SOLR 982362 AZITHROMYCIN Inactive CINNAMON ALPHA LIPOIC AC CMPLX CAPS by mouth twice a d ay in AM by mouth twice a day in PM CINNAMON ALPHA LIPOIC AC CMPLX CAPS ALPHA LIPOIC EOKM-CL-KMINZKIL CAPS Inactive MICARDIS HCT 80-12.5 MG TABS 1 qd MICARDI S HCT 80-12.5 MG TABS 150478 TELMISARTAN-HCTZ Inactive AMOXICILLIN 500 MG CAPS 2 po BID x 10 days AMOXICILLIN 500 MG CAPS 065823 AMOXICILLIN Inactive AZITHROMYCIN 250 MG TABS take 2 po today then take 1 po days 2-5 AZITHROMYCIN 250 MG TABS 0929413 AZITHROMYCIN Inactiv e Vital Signs Date Name [...] ... - Chemistry sodium, serum 142 mmol/L 137-982 5632/02/27 potassium, serum 4.7 mmol/L 3.5-5.2 chloride, serum [...] mg/g{creat} 0-2 9 cholesterol, serum 168 mg/dL 866-919 6018/02/27 triglyceride, serum, fasting 101 mg/dL 30-200 HDL [...] 0.30 mg/dL 0.00-1.00 cholesterol, serum 140 mg/dL 775-569 5076/11/08 triglyceride, serum, fasting 76 mg/dL 30-200 HDL cholesterol, serum 60 mg/dL 32-96 LDL cholesterol, serum 65 mg/dL 0-130 sodium, serum 143 mmol/L 690-282 7386/11/08 potassium, serum 4.8 mmol/L 3.5-5.2 chloride, serum [...] 5.0-8.5 Encounters Code Encounter Date Provider Facility CPT-37160 Level 2 Est. Patient 08:00:22 CDT Jcarlos dc MD [facility] CPT-78560 Level 3 Est. Patient 19:06:55 CDT Bertrand marquez [facility] CPT-85386 Level 3 Est. Patient 10:08:23 ORDER CHECKER Bertrand marquez [facility]-81090 Level 3 Est. Patient 16:37:54 ORDER CHECKER Bertrand marquez [facility] CPT-51486 Level 3 Est. Patient 11:31:59 ORDER CHECKER Bertrand marquez [facility] CPT-37850 Level 3 Est. Patient 10:20:08 CDT Adolfo villasenor [facility] CPT-40162 Level 3 Est. Patient 13:45:20 CDT Sanket buckley [facility] CPT-24286 Level 3 Est. Patient 12:51:06 CDT Adolfo villasenor [facility] CPT-02537 Level 3 Est. Patient 11:22:51 ORDER CHECKER Yoli tolbert MD PhD [facility] CPT-52902 Level 3 Est. Patient 13:33:19 CDT Bertrand marquez DO [facility] Procedures Code Procedure Name Date Entry Date Standard Desc ription CPT-40728 Knee comp 4/> V 11:58:06 ORDER CHECKER
--- OUTSIDE RECORDS SUMMARY | 2019-11-13 10:47 | XMS REPORT | Clinical Summary ---
Author Author Admin, Enrique Adamson Organization [facility] Address Unknown Phone Unavailable Allergies, Adverse Reactions, [...] TID PRN for muscle pain CYCLOBENZAPRINE HCL 40713543579 Active Brittni Randall HUB BANDER Active AMLODIPINE BESYLATE 5 MG TABS 1 tablet by mouth daily for bl ood pressure AMLODIPINE BESYLATE 64315896487 Active Bertrand Patel DO Active MICARDIS 80 MG TABS 1 tablet daily for blood pressure TELMISARTAN 19358384809 Active Bertrand Patel DO Active MICARDIS HCT 80-12.5 MG TABS 1 qd TELMISARTA N-HCTZ 06479948414 No Longer Active Bertrand Patel DO Active FUROSEMIDE 20 MG TABS take one po PRN FUROSEMIDE 33514927495 Active Bertrand Patel DO Active CINNAMON ALPHA LIPOIC AC CMPLX CAPS by mouth twice a d ay in AM by mouth twice a day in PM ALPHA LIPOIC [id number]-SZ-[id number] CAPS 673245 07009 No Longer Active Bertrand Patel DO Active AZITHROMYCIN 500 MG SOLR 1 po q day AZITHROMYCI N 12170226118 No Longer Active Bertrand Patel DO Active CYMBALTA 30 MG CPEP 1 cap by mouth daily DULOXE CATHI HCL 53233112836 No Longer Active Bertrand Patel DO Active CYMBALTA 60 MG CPEP 1 cap by mouth daily DULOXE CATHI HCL 65415801517 Active Bertrand Patel DO Active WELLBUTRIN 75 MG TABS 2 times daily BUPROPION H CL 87081262924 No Longer Active Bertrand Patel DO Active [facility] MELATONIN 5-10 MG CR-TABS Take one by mouth daily at bedtime 20 15/04/08 MELATONIN-PYRIDOXINE 05842117644 Active Bertrand Patle DO Activ e LORTAB 7.5-500 MG TABS take one po Q6 hours HYDROCODONE-ACETAMINOPHEN 26150038281 Active Bertrand Patel DO Active PROAIR HFA 108 (90 BASE) MCG/ACT AERS take one to two puffs po Q4-6 hour prn cough and shortness of breath ALBUTEROL SULFATE 6470918132 1 Active Adolfo OSORIO Active AZITHROMYCIN 250 MG TABS take 2 po today then take 1 po days 2-5 AZITHROMYCIN 71481015341 No Longer Active Adolfo OSORIO Active VITAMIN E 200 UNIT CAPS 1 cap po qd VITAMIN E 1055570761 5 Active Adolfo OSORIO Active PERMETHRIN 5 % CREA apply neck to toes tonight a nd then rinse off in morning. repeat at 7 days PERMETHRIN 73673081671 No Longer Active Adolfo OSORIO Active AMOXICILLIN 500 MG CAPS 2 po BID x 10 days AMOX ICILLIN 69322165796 No Longer Active Yoli Mercado MD PhD Active ALPRAZOLAM 0.5 MG TAB 1 tab by mouth tid ALPRAZOL AM 29429590747 Active Bertrand Patel DO Active PRAVASTATIN SODIUM 20 MG TABS 1 tablet by mouth daily at bedtime 20 05/12/02 PRAVASTATIN SODIUM 45284959614 Active Bertrand Patel DO Active B-12 1000 MCG CAPS 1 tab daily CYANOCOBALAMIN 7525991 2732 Active Bertrand Patel DO Active INSUPEN ULTRAFIN 31G X 6 MM MISC USE DIRECTED 03/04 INSULIN PEN NEEDLE 17901878651 No Longer Active Bertrand Patel DO Active TRANSDERM-SCOP 1.5 MG PT72 1 patch applied behind ear q 3 day 20 04/13/28 SCOPOLAMINE BASE 53058917838 No Longer Active Bertrand Patel DO Active MACRODANTIN 100 MG CAPS one p.o. b.i.d. x2 weeks 03/04 NITROFURANTOIN MACROCRYSTAL 86661111074 No Longer Active Bertrand Patel DO Active METFORMIN HCL 500 MG TABS 1 bid METFORMIN HCL 23270098 898 Active Darrian Woods MD Active MACRODANTIN 100 MG CAPS one p.o. b.i.d. x2 weeks 03/04 MACRODANTIN 100 MG CAPS 061867 NITROFURANTOIN MACROCRYSTAL Inactive TRANSDERM-SCOP 1.5 MG PT72 [...] at 7 days PERMETHRIN 5 % CREA 109513 PERMETHRIN Inactive WELLBUTRIN 75 MG TABS 2 times daily WELLBUTRIN 75 MG TABS 380488 BUPROPION HCL Inactive CYMBALTA 30 MG CPEP 1 cap by mouth daily CYMBALTA 30 MG CPEP 989375 DULOXETINE HCL Inactive AZITHROMYCIN 500 MG SOLR 1 po q day ALTA THROMYCIN 500 MG SOLR 837908 AZITHROMYCIN Inactive CINNAMON ALPHA LIPOIC AC CMPLX CAPS by mouth twice a d ay in AM by mouth twice a day in PM CINNAMON ALPHA LIPOIC AC CMPLX CAPS ALPHA LIPOIC [id number] CAPS Inactive MICARDIS HCT 80-12.5 MG TABS 1 qd MICARDI S HCT 80-12.5 MG TABS 388042 TELMISARTAN-HCTZ Inactive AMOXICILLIN 500 MG CAPS 2 po BID x 10 days AMOXICILLIN 500 MG CAPS 692532 AMOXICILLIN Inactive AZITHROMYCIN 250 MG TABS take 2 po today then take 1 po days 2-5 AZITHROMYCIN 250 MG TABS 9863911 AZITHROMYCIN Inactiv e Vital Signs Date Name [...] ... - Chemistry sodium, serum 142 mmol/L 316-734 7614/02/27 potassium, serum 4.7 mmol/L 3.5-5.2 chloride, serum [...] mg/g{creat} 0-2 9 cholesterol, serum 168 mg/dL 984-331 4564/02/27 triglyceride, serum, fasting 101 mg/dL 30-200 HDL [...] 6.6 % 4.3-6.0 cholesterol, serum 140 mg/dL 366-166 9339/11/08 triglyceride, serum, fasting 76 mg/dL 30-200 HDL cholesterol, serum 60 mg/dL 32-96 LDL cholesterol, serum 65 mg/dL 0-130 sodium, serum 143 mmol/L 952-355 9855/11/08 potassium, serum 4.8 mmol/L 3.5-5.2 chloride, serum [...] 5.0-8.5 Encounters Code Encounter Date Provider Facility CPT-84135 Level 2 Est. Patient 08:00:22 CDT Jcarlos dc MD [facility] CPT-31515 Level 3 Est. Patient 19:06:55 CDT Bertrand marquez [facility] CPT-33160 Level 3 Est. Patient 10:08:23 INSTRUCTIONAL TECHNOLOGY COORDINATOR Bertrand marquez [facility]-94650 Level 3 Est. Patient 16:37:54 INSTRUCTIONAL TECHNOLOGY COORDINATOR Bertrand marquez [facility] CPT-48131 Level 3 Est. Patient 11:31:59 INSTRUCTIONAL TECHNOLOGY COORDINATOR Bertrand marquez [facility] CPT-07919 Level 3 Est. Patient 10:20:08 CDT Adolfo villasenor [facility] CPT-22443 Level 3 Est. Patient 13:45:20 CDT Sanket buckley [facility] CPT-42024 Level 3 Est. Patient 12:51:06 CDT Adolfo villasenor [facility] CPT-03701 Level 3 Est. Patient 11:22:51 INSTRUCTIONAL TECHNOLOGY COORDINATOR Yoli tolbert MD PhD [facility] CPT-35682 Level 3 Est. Patient 13:33:19 CDT Bertrand marquez DO [facility] Procedures Code Procedure Name Date Entry Date Standard Desc ription CPT-15749 Knee comp 4/> V 11:58:06 INSTRUCTIONAL TECHNOLOGY COORDINATOR
--- OUTSIDE RECORDS SUMMARY | 2019-11-13 10:47 | XMS REPORT | Clinical Summary ---
Author Author Admin, Enrique Adamson Organization [facility] Address Unknown Phone Unavailable Allergies, Adverse Reactions, Alerts Allergy Name Reaction Description Start Date Severity Status Pr ovider BYETTA 10 MCG PEN Critical Active iLlia Clemons RN METAMUCIL Critical Active Bertrand Patel [...] 07/14/20 SINUSITIS, FRONTAL, ACUTE ICD-461.1 Inactive Yoli eMrcado MD PhD COUGH ICD-786.2 Inactive Yoli Mercado [...] one by mouth daily at bedtime MELATONIN-PYRIDOXINE 32650118865 No Longer Active Bertrand Patel DO Active VITAMIN E 200 UNIT CAPS 1 cap po qd VITAMIN E 316 45281757 No Longer Active Bertrand Patel DO Active B-12 1000 MCG CAPS 1 tab daily CYANOCOBALAMIN 31 613434851 No Longer Active Bertrand Patel DO Active METFORMIN HCL 500 MG TABS 1 bid METFORMIN HCL 52655957045 No Longer Active Bertrand Patel DO Active FUROSEMIDE 20 MG TABS 1 pill by mouth daily if needed for edema FUROSEMIDE 36937066777 No Longer Active Bertrand Patel DO Act jairo PRAVASTATIN SODIUM 20 MG TABS 1 tablet by mouth daily at bedtime PRAVASTATIN SODIUM 53574578215 No Longer Active Bertrand Patel DO Active AUGMENTIN 875-125 MG TABS 1 pill by mouth twice daily AMOXICILLIN-POT CLAVULANATE 07413808407 No Longer Active Yoli Mercado MD PhD Active LEVAQUIN 500 MG TABS 1 pill by mouth daily LEVO FLOXACIN 64264664730 No Longer Active Yoli Mercado MD PhD Active CYCLOBENZAPRINE HCL 10 MG TABS Take 1 tab TID PRN for muscle pain CYCLOBENZAPRINE HCL 63144430944 Active Brittni Randall CALL CENTER CONSULTANT Active AMLODIPINE BESYLATE 5 MG TABS 1 tablet by mouth daily for bl ood pressure AMLODIPINE BESYLATE 59035471817 Active Yoli Polk hD Active MICARDIS 80 MG TABS 1 tablet daily for blood pressure TELMISARTAN 41257488823 Active Bertrand Patel DO Active MICARDIS HCT 80-12.5 MG TABS 1 qd TELMISARTA N-HCTZ 27552051047 No Longer Active Bertrand Patel DO Active CINNAMON ALPHA LIPOIC AC CMPLX CAPS by mouth twice a d ay in AM by mouth twice a day in PM ALPHA LIPOIC [id number] CAPS 378083 25146 No Longer Active Bertrand Patel DO Active AZITHROMYCIN 500 MG SOLR 1 po q day AZITHROMYCI N 26683416542 No Longer Active Bertrand Patel DO Active CYMBALTA 30 MG CPEP 1 cap by mouth daily DULOXE CATHI HCL 71686796428 No Longer Active Bertrand Patel DO Active CYMBALTA 60 MG CPEP 1 cap by mouth daily DULOXE CATHI HCL 28881765642 Active Bertrand Patel DO Active WELLBUTRIN 75 MG TABS 2 times daily BUPROPION H CL 27230232005 No Longer Active Bertrand Patel DO Active LORTAB 7.5-500 MG TABS take one po Q6 hours HYDROCODONE-ACETAMINOPHEN Active Bertrand Patel DO Active PROAIR HFA 108 (90 BASE) MCG/ACT AERS take one to two puffs po Q4-6 hour prn cough and shortness of breath ALBUTEROL SULFATE 7193332395 1 Active Adolfo OSORIO Active AZITHROMYCIN 250 MG TABS take 2 po today then take 1 po days 2-5 AZITHROMYCIN 95989467502 No Longer Active Adolfo OSORIO Active PERMETHRIN 5 % CREA apply neck to toes tonight a nd then rinse off in morning. repeat at 7 days PERMETHRIN 47195951408 No Longer Active Adolfo OSORIO Active AMOXICILLIN 500 MG CAPS 2 po BID x 10 days AMOX ICILLIN 41812431941 No Longer Active Yoli Mercado MD PhD Active ALPRAZOLAM 0.5 MG TAB 1 tab by mouth tid ALPRAZOL AM 27760551417 Active Bertrand Patel DO Active INSUPEN ULTRAFIN 31G X 6 MM MISC USE DIRECTED 03/04 INSULIN PEN NEEDLE 27610548460 No Longer Active Bertrand Patel DO Active TRANSDERM-SCOP 1.5 MG PT72 1 patch applied behind ear q 3 day 20 04/13/28 SCOPOLAMINE BASE 20368294407 No Longer Active Bertrand Patel DO Active MACRODANTIN 100 MG CAPS one p.o. b.i.d. x2 weeks 03/04 NITROFURANTOIN MACROCRYSTAL 72596046379 No Longer Active Bertrand Patel DO Active MACRODANTIN 100 MG CAPS one p.o. b.i.d. x2 weeks 03/04 MACRODANTIN 100 MG CAPS 455691 NITROFURANTOIN MACROCRYSTAL Inactive TRANSDERM-SCOP 1.5 MG PT72 [...] at 7 days PERMETHRIN 5 % CREA 306733 PERMETHRIN Inactive WELLBUTRIN 75 MG TABS 2 times daily WELLBUTRIN 75 MG TABS 525116 BUPROPION HCL Inactive CYMBALTA 30 MG CPEP 1 cap by mouth daily CYMBALTA 30 MG CPEP 522986 DULOXETINE HCL Inactive AZITHROMYCIN 500 MG SOLR 1 po q day ALTA THROMYCIN 500 MG SOLR 082666 AZITHROMYCIN Inactive CINNAMON ALPHA LIPOIC AC CMPLX CAPS by mouth twice a d ay in AM by mouth twice a day in PM CINNAMON ALPHA LIPOIC AC CMPLX CAPS ALPHA LIPOIC [id number] CAPS Inactive MICARDIS HCT 80-12.5 MG TABS 1 qd MICARDI S HCT 80-12.5 MG TABS 080313 TELMISARTAN-HCTZ Inactive PRAVASTATIN SODIUM 20 MG TABS 1 tablet by mouth daily at bedtime PRAVASTATIN SODIUM 20 MG TABS 887719 PRAVASTATIN SODIUM Inactive FUROSEMIDE 20 MG TABS 1 pill by mouth daily if needed for edema FUROSEMIDE 20 MG TABS 389604 FUROSEMIDE Inactive METFORMIN HCL 500 MG TABS 1 bid METFORMIN HCL 500 MG TABS 491935 METFORMIN HCL Inactive B-12 1000 MCG CAPS 1 tab daily B-12 1000 MCG CAP S CYANOCOBALAMIN Inactive VITAMIN E 200 UNIT CAPS 1 cap po qd VITAMIN E 2 00 UNIT CAPS 9784910 VITAMIN E Inactive [facility] MELATONIN 5-10 MG CR-TABS Take one by mouth daily at bedtime [facility] MELATONIN 5-10 MG CR-TABS MELATONIN-PYRIDOXI NE Inactive AMOXICILLIN 500 MG CAPS 2 po BID x 10 days AMOXICILLIN 500 MG CAPS 560223 AMOXICILLIN Inactive AZITHROMYCIN 250 MG TABS take 2 po today then take 1 po days 2-5 AZITHROMYCIN 250 MG TABS 2486902 AZITHROMYCIN Inactiv e LEVAQUIN 500 MG TABS 1 pill by mouth daily LEVAQUIN 500 MG TABS 285057 LEVOFLOXACIN Inactive AUGMENTIN 875-125 MG TABS 1 pill by mouth twice daily AUGMENTIN 875-125 MG TABS 584192 AMOXICILLIN-POT CLAVULANATE Inacti ve Vital Signs Date Name Value Unit Range Description blood pressure, diastolic 99 mm[Hg] BP [place] blood pressure, systolic 158 mm[Hg] BP sys pulse rate E&M 77 /min Heart rate temperature E&M 97.8 [degF] Body temp erature weight E&M 375 [lb_av] Weight Measure d blood pressure, diastolic 74 mm[Hg] BP [place] blood pressure, systolic 116 mm[Hg] BP sys [...] d blood pressure, diastolic 96 mm[Hg] BP [place] blood pressure, systolic 151 mm[Hg] BP sys [...] weight E&M 422.50 [lb_av] Weight Measure d Diagnostic Results Date Name Value Unit Range Description Lab Report: CBC, Comp. Metabolic Panel, Thyroid Stimulating Hormone (L), ... - Chemistry sodium, serum 142 mmol/L 460-130 4896/02/27 potassium, serum 4.7 mmol/L 3.5-5.2 chloride, serum [...] mg/g{creat} 0-2 9 cholesterol, serum 168 mg/dL 574-583 6690/02/27 triglyceride, serum, fasting 101 mg/dL 30-200 HDL [...] CBC - Chemistry sodium, serum 139 mmol/L 646-917 8711/10/31 potassium, serum 4.5 mmol/L 3.5-5.2 chloride, serum [...] mg/dL Encounters Code Encounter Date Provider Facility CPT-76444 Level 3 Est. Patient 12:56:37 CDT Bertrand marquez [facility] CPT-67521 Level 3 Est. Patient 19:12:03 CDT Yoli tolbert MD [facility] CPT-55759 Level 3 Est. Patient 14:36:01 CDT Yoli tolbert MD [facility] CPT-64282 Level 2 Est. Patient 08:00:22 CDT Jcarlos dc MD [facility]-96708 Level 3 Est. Patient 19:06:55 CDT Bertrand marquez [facility] CPT-41901 Level 3 Est. Patient 10:08:23 SUPERVISOR EVAPORATOR Bertrand marquez [facility] CPT-37474 Level 3 Est. Patient 16:37:54 SUPERVISOR EVAPORATOR Bertrand marquez [facility] CPT-11989 Level 3 Est. Patient 11:31:59 SUPERVISOR EVAPORATOR Bertrand marquez [facility] CPT-28256 Level 3 Est. Patient 10:20:08 CDT Adolfo villasenor [facility] CPT-11171 Level 3 Est. Patient 13:45:20 CDT Sanket buckley [facility] CPT-43134 Level 3 Est. Patient 12:51:06 CDT Adolfo OSORIO [facility] CPT-42182 Level 3 Est. Patient 11:22:51 SUPERVISOR EVAPORATOR Yoli tolbert MD PhD [facility] CPT-12408 Level 3 Est. Patient 13:33:19 CDT Bertrand marquez DO [facility] Procedures Code Procedure Name Date Entry Date Standard Desc ription CPT-18418 Knee comp 4/> V 11:58:06 SUPERVISOR EVAPORATOR
--- OUTSIDE RECORDS SUMMARY | 2019-11-13 10:47 | XMS REPORT | Clinical Summary ---
Author Author Admin, Enrique Adamson Organization [facility] Address Unknown Phone Allergies, Adverse Reactions, Alerts Allergy Name Reaction Description Start Date Severity Status Pr ovider BYETTA 10 MCG PEN Critical Active Lilia Clemons RN METAMUCIL Critical Active Bertrand Patel DO BACTRIM Critical Active Bertrand Patle DO Conditions or Problems Problem Name Problem [...] TID PRN for muscle pain CYCLOBENZAPRINE HCL 77876004189 Active Brittni Ventura DOWELER Active AMLODIPINE BESYLATE 5 MG TABS 1 tablet by mouth daily for bl ood pressure AMLODIPINE BESYLATE 80446289159 Active Bertrand Patel DO Active MICARDIS 80 MG TABS 1 tablet daily for blood pressure TELMISARTAN 30659151425 Active Bertrand Patel DO Active MICARDIS HCT 80-12.5 MG TABS 1 qd TELMISARTA N-HCTZ 75742815293 No Longer Active Bertrand Patel DO Active FUROSEMIDE 20 MG TABS take one po PRN FUROSEMIDE 43418775954 Active Bertrand Paetl DO Active CINNAMON ALPHA LIPOIC AC CMPLX CAPS by mouth twice a d ay in AM by mouth twice a day in PM ALPHA LIPOIC [id number] CAPS 040092 71150 No Longer Active Bertrand Patel DO Active AZITHROMYCIN 500 MG SOLR 1 po q day AZITHROMYCI N 84012512374 No Longer Active Bertrand Patel DO Active CYMBALTA 30 MG CPEP 1 cap by mouth daily DULOXE CATHI HCL 88407145195 No Longer Active Bertrand Patel DO Active CYMBALTA 60 MG CPEP 1 cap by mouth daily DULOXE CATHI HCL 17950802884 Active Bertrand Ptael DO Active WELLBUTRIN 75 MG TABS 2 times daily BUPROPION H CL 14712990152 No Longer Active Bertrand Patel DO Active [facility] MELATONIN 5-10 MG CR-TABS Take one by mouth daily at bedtime 20 15/04/08 MELATONIN-PYRIDOXINE 44088732723 Active Bertrand Patel DO Activ e LORTAB 7.5-500 MG TABS take one po Q6 hours HYDROCODONE-ACETAMINOPHEN 63288637288 Active Bertrand Patel DO Active PROAIR HFA 108 (90 BASE) MCG/ACT AERS take one to two puffs po Q4-6 hour prn cough and shortness of breath ALBUTEROL SULFATE 0237653498 1 Active Adolfo OSORIO Active AZITHROMYCIN 250 MG TABS take 2 po today then take 1 po days 2-5 AZITHROMYCIN 98241451413 No Longer Active Adolfo OSORIO Active VITAMIN E 200 UNIT CAPS 1 cap po qd VITAMIN E 9724795780 5 Active Adolfo OSORIO Active PERMETHRIN 5 % CREA apply neck to toes tonight a nd then rinse off in morning. repeat at 7 days PERMETHRIN 77935549371 No Longer Active Adolfo OSORIO Active AMOXICILLIN 500 MG CAPS 2 po BID x 10 days AMOX ICILLIN 33881351818 No Longer Active Yoli Mercado MD PhD Active ALPRAZOLAM 0.5 MG TAB 1 tab by mouth tid ALPRAZOL AM 97918000414 Active Bertrand Patel DO Active PRAVASTATIN SODIUM 20 MG TABS 1 tablet by mouth daily at bedtime 20 05/12/02 PRAVASTATIN SODIUM 93490342343 Active Bertrand Patel DO Active B-12 1000 MCG CAPS 1 tab daily CYANOCOBALAMIN 9535616 2732 Active Bertrand Patel DO Active INSUPEN ULTRAFIN 31G X 6 MM MISC USE DIRECTED 03/04 INSULIN PEN NEEDLE 02811602258 No Longer Active Bertrand Jacklyn Patel DO Active TRANSDERM-SCOP 1.5 MG PT72 1 patch applied behind ear q 3 day 20 04/13/28 SCOPOLAMINE BASE 92464509057 No Longer Active Bertrand Jacklyn Patel DO Active MACRODANTIN 100 MG CAPS one p.o. b.i.d. x2 weeks 03/04 NITROFURANTOIN MACROCRYSTAL 37139196068 No Longer Active Bertrand Jacklyn Patel DO Active METFORMIN HCL 500 MG TABS 1 bid METFORMIN HCL 57501927 898 Active Bertrand Patel DO Active MACRODANTIN 100 MG CAPS one p.o. b.i.d. x2 weeks 03/04 MACRODANTIN 100 MG CAPS 465478 NITROFURANTOIN MACROCRYSTAL Inactive TRANSDERM-SCOP 1.5 MG PT72 [...] at 7 days PERMETHRIN 5 % CREA 866743 PERMETHRIN Inactive WELLBUTRIN 75 MG TABS 2 times daily WELLBUTRIN 75 MG TABS 617786 BUPROPION HCL Inactive CYMBALTA 30 MG CPEP 1 cap by mouth daily CYMBALTA 30 MG CPEP 423345 DULOXETINE HCL Inactive AZITHROMYCIN 500 MG SOLR 1 po q day ALTA THROMYCIN 500 MG SOLR 802611 AZITHROMYCIN Inactive CINNAMON ALPHA LIPOIC AC CMPLX CAPS by mouth twice a d ay in AM by mouth twice a day in PM CINNAMON ALPHA LIPOIC AC CMPLX CAPS ALPHA LIPOIC VATE-EV-VTHEGWZO CAPS Inactive MICARDIS HCT 80-12.5 MG TABS 1 qd MICARDI S HCT 80-12.5 MG TABS 924315 TELMISARTAN-HCTZ Inactive AMOXICILLIN 500 MG CAPS 2 po BID x 10 days AMOXICILLIN 500 MG CAPS 992714 AMOXICILLIN Inactive AZITHROMYCIN 250 MG TABS take 2 po today then take 1 po days 2-5 AZITHROMYCIN 250 MG TABS 7291322 AZITHROMYCIN Inactiv e Vital Signs Date Name [...] - Chem istry sodium, serum 144 mmol/L 053-552 0129/06/18 potassium, serum 4.4 mmol/L 3.5-5.2 chloride, serum 101 mmol/L 98-107 carbon dioxide, venous blood 31.0 mmol/L 21.0-32 .0 blood glucose 50 mg/dL 65-110 calcium, serum 8.7 mg/dL 8.5-10.1 urea nitrogen, blood 20 mg/dL 7-18 creatinine, serum 1.00 mg/dL 0.60-1.30 Lab Report: CBC, Comp. Metabolic Panel, Thyroid Stimulating Hormone (L), ... - Chemistry sodium, serum 142 mmol/L 015-459 4718/02/27 potassium, serum 4.7 mmol/L 3.5-5.2 chloride, serum [...] mg/g{creat} 0-2 9 cholesterol, serum 168 mg/dL 790-870 8041/02/27 triglyceride, serum, fasting 101 mg/dL 30-200 HDL [...] 6.3 % 4.3-6.0 sodium, serum 143 mmol/L 002-785 2177/06/10 potassium, serum 5.0 mmol/L 3.5-5.2 chloride, serum [...] 0.30 mg/dL 0.00-1.00 cholesterol, serum 140 mg/dL 398-129 3672/11/08 triglyceride, serum, fasting 76 mg/dL 30-200 HDL cholesterol, serum 60 mg/dL 32-96 LDL cholesterol, serum 65 mg/dL 0-130 sodium, serum 143 mmol/L 140-853 4958/11/08 potassium, serum 4.8 mmol/L 3.5-5.2 chloride, serum [...] 5.0-8.5 Encounters Code Encounter Date Provider Facility CPT-60920 Level 2 Est. Patient 08:00:22 CDT Jcarlos dc MD [facility] CPT-00549 Level 3 Est. Patient 19:06:55 CDT Bertrand marquez [facility] CPT-85952 Level 3 Est. Patient 10:08:23 RENTAL MANAGEMENT TRAINEE Bertrand marquez [facility]-75027 Level 3 Est. Patient 16:37:54 RENTAL MANAGEMENT TRAINEE Bertrand marquez [facility] CPT-01536 Level 3 Est. Patient 11:31:59 RENTAL MANAGEMENT TRAINEE Bertrand marquez [facility] CPT-66471 Level 3 Est. Patient 10:20:08 CDT Adolfo villasenor [facility] CPT-35924 Level 3 Est. Patient 13:45:20 CDT Sanket buckley [facility] CPT-87826 Level 3 Est. Patient 12:51:06 CDT Adolfo villasenor [facility] CPT-35376 Level 3 Est. Patient 11:22:51 RENTAL MANAGEMENT TRAINEE Yoli tolbert MD PhD [facility]-05936 Level 3 Est. Patient 13:33:19 CDT Bertrand marquez [facility] Procedures Code Procedure Name Date Entry Date Standard Desc ription CPT-47142 Knee comp 4/> V 11:58:06 RENTAL MANAGEMENT TRAINEE
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
--- OUTSIDE RECORDS SUMMARY | 2019-11-13 10:48 | XMS REPORT | Clinical Summary ---
Author Author Admin, Enrique Adamson Organization [facility] Address Unknown Phone Allergies, Adverse [...] 788.42 Active Bertrand Patel DO Po lyuria SCABIES ICD-133.0 Inactive Yoli Mercado MD PhD 201 07/14/20 Pharyngitis-Acute ICD-462 Inactive Bertrand Redmond DO HEALTH SCREENING ICD-V70.0 Inactive Yoli sabillon MD PhD Medication List Medication Instructions Start Date Stop Date Generic Name NDC Status Provider Patient Instruction CYCLOBENZAPRINE HCL 10 MG TABS Take 1 tab TID PRN for muscle pain CYCLOBENZAPRINE HCL 97800330411 Active Brittni Ventura [employer] MGR Active AMLODIPINE BESYLATE 5 MG TABS 1 tablet by mouth daily for bl ood pressure AMLODIPINE BESYLATE 31232056057 Active Bertrand Patel DO Active MICARDIS 80 MG TABS 1 tablet daily for blood pressure TELMISARTAN 22935066624 Active Bertrand Patel DO Active MICARDIS HCT 80-12.5 MG TABS 1 qd TELMISARTA N-HCTZ 93379408479 No Longer Active Bertrand Patel DO Active FUROSEMIDE 20 MG TABS take one po PRN FUROSEMIDE 19837621750 Active Bertrand Patel DO Active CINNAMON ALPHA LIPOIC AC CMPLX CAPS by mouth twice a d ay in AM by mouth twice a day in PM ALPHA LIPOIC [id number] CAPS 624001 58445 No Longer Active Bertrand Patel DO Active AZITHROMYCIN 500 MG SOLR 1 po q day AZITHROMYCI N 98822005020 No Longer Active Bertrand Patel DO Active CYMBALTA 30 MG CPEP 1 cap by mouth daily DULOXE CATHI HCL 42060079162 No Longer Active Bertrand Patel DO Active CYMBALTA 60 MG CPEP 1 cap by mouth daily DULOXE CATHI HCL 43096214347 Active Bertrand Patel DO Active WELLBUTRIN 75 MG TABS 2 times daily BUPROPION H CL 76280996608 No Longer Active Bertrand Patel DO Active [facility] MELATONIN 5-10 MG CR-TABS Take one by mouth daily at bedtime 20 15/04/08 MELATONIN-PYRIDOXINE 08092447512 Active Bertrand Patel DO Activ e LORTAB 7.5-500 MG TABS take one po Q6 hours HYDROCODONE-ACETAMINOPHEN 60295642818 Active Bertrand Patel DO Active PROAIR HFA 108 (90 BASE) MCG/ACT AERS take one to two puffs po Q4-6 hour prn cough and shortness of breath ALBUTEROL SULFATE 8865053147 1 Active Adolfo OSORIO Active AZITHROMYCIN 250 MG TABS take 2 po today then take 1 po days 2-5 AZITHROMYCIN 26648601877 No Longer Active Adolfo OSORIO Active VITAMIN E 200 UNIT CAPS 1 cap po qd VITAMIN E 0506646960 5 Active Adolfo OSORIO Active PERMETHRIN 5 % CREA apply neck to toes tonight a nd then rinse off in morning. repeat at 7 days PERMETHRIN 28414686518 No Longer Active Adolfo OSORIO Active AMOXICILLIN 500 MG CAPS 2 po BID x 10 days AMOX ICILLIN 63772172814 No Longer Active Yoli Mercado MD PhD Active ALPRAZOLAM 0.5 MG TAB 1 tab by mouth tid ALPRAZOL AM 48127126714 Active Bertrand Patel DO Active PRAVASTATIN SODIUM 20 MG TABS 1 tablet by mouth daily at bedtime 20 05/12/02 PRAVASTATIN SODIUM 56922744376 Active Bertrand Patel DO Active B-12 1000 MCG CAPS 1 tab daily CYANOCOBALAMIN 3819568 2732 Active Bertrand Patel DO Active INSUPEN ULTRAFIN 31G X 6 MM MISC USE DIRECTED 03/04 INSULIN PEN NEEDLE 77953054262 No Longer Active Bertrand Jacklyn Patel DO Active TRANSDERM-SCOP 1.5 MG PT72 1 patch applied behind ear q 3 day 20 04/13/28 SCOPOLAMINE BASE 15307190944 No Longer Active Bertrand Jacklyn Patel DO Active MACRODANTIN 100 MG CAPS one p.o. b.i.d. x2 weeks 03/04 NITROFURANTOIN MACROCRYSTAL 39426393957 No Longer Active Bertrand Jacklyn Patel DO Active METFORMIN HCL 500 MG TABS 1 bid METFORMIN HCL 61687706 898 Active Bertrand Patel DO Active MACRODANTIN 100 MG CAPS one p.o. b.i.d. x2 weeks 03/04 MACRODANTIN 100 MG CAPS 982129 NITROFURANTOIN MACROCRYSTAL Inactive TRANSDERM-SCOP 1.5 MG PT72 [...] at 7 days PERMETHRIN 5 % CREA 694115 PERMETHRIN Inactive WELLBUTRIN 75 MG TABS 2 times daily WELLBUTRIN 75 MG TABS 051806 BUPROPION HCL Inactive CYMBALTA 30 MG CPEP 1 cap by mouth daily CYMBALTA 30 MG CPEP 374254 DULOXETINE HCL Inactive AZITHROMYCIN 500 MG SOLR 1 po q day ALTA THROMYCIN 500 MG SOLR 502366 AZITHROMYCIN Inactive CINNAMON ALPHA LIPOIC AC CMPLX CAPS by mouth twice a d ay in AM by mouth twice a day in PM CINNAMON ALPHA LIPOIC AC CMPLX CAPS ALPHA LIPOIC [id number] CAPS Inactive MICARDIS HCT 80-12.5 MG TABS [address] 80-12.5 MG TABS TELMISARTAN-HCTZ Inactive AMOXICILLIN 500 MG CAPS 2 po BID x 10 days AMOXICILLIN 500 MG CAPS 267517 AMOXICILLIN Inactive AZITHROMYCIN 250 MG TABS take 2 po today then take 1 po days 2-5 AZITHROMYCIN 250 MG TABS 6820734 AZITHROMYCIN Inactiv e Vital Signs Date Name [...] - Chem istry sodium, serum 144 mmol/L 898-476 5016/06/18 potassium, serum 4.4 mmol/L 3.5-5.2 chloride, serum 101 mmol/L 98-107 carbon dioxide, venous blood 31.0 mmol/L 21.0-32 .0 blood glucose 50 mg/dL 65-110 calcium, serum 8.7 mg/dL 8.5-10.1 urea nitrogen, blood 20 mg/dL 7-18 creatinine, serum 1.00 mg/dL 0.60-1.30 Lab Report: CBC, Comp. Metabolic Panel, Thyroid Stimulating Hormone (L), ... - Chemistry sodium, serum 142 mmol/L 402-167 2606/02/27 potassium, serum 4.7 mmol/L 3.5-5.2 chloride, serum [...] mg/g{creat} 0-2 9 cholesterol, serum 168 mg/dL 931-476 9769/02/27 triglyceride, serum, fasting 101 mg/dL 30-200 HDL [...] 6.3 % 4.3-6.0 sodium, serum 143 mmol/L 328-605 9234/06/10 potassium, serum 5.0 mmol/L 3.5-5.2 chloride, serum [...] 0.30 mg/dL 0.00-1.00 cholesterol, serum 140 mg/dL 279-703 0561/11/08 triglyceride, serum, fasting 76 mg/dL 30-200 HDL cholesterol, serum 60 mg/dL 32-96 LDL cholesterol, serum 65 mg/dL 0-130 sodium, serum 143 mmol/L 219-156 9259/11/08 potassium, serum 4.8 mmol/L 3.5-5.2 chloride, serum [...] 5.0-8.5 Encounters Code Encounter Date Provider Facility CPT-52174 Level 2 Est. Patient 08:00:22 CDT Jcarlos dc MD [facility] CPT-23855 Level 3 Est. Patient 19:06:55 CDT Bertrand marquez [facility] CPT-12818 Level 3 Est. Patient 10:08:23 PERFORATOR OPERATOR Bertrand marquez [facility] CPT-40375 Level 3 Est. Patient 16:37:54 PERFORATOR OPERATOR Bertrand marquez [facility] CPT-60632 Level 3 Est. Patient 11:31:59 PERFORATOR OPERATOR Bertrand marquez [facility] CPT-10399 Level 3 Est. Patient 10:20:08 CDT Adolfo villasenor [facility] CPT-85243 Level 3 Est. Patient 13:45:20 CDT Sanket buckley [facility] CPT-40815 Level 3 Est. Patient 12:51:06 CDT Adolfo villasenor [facility] CPT-29129 Level 3 Est. Patient 11:22:51 PERFORATOR OPERATOR Yoli tolbert MD PhD [facility]-13488 Level 3 Est. Patient 13:33:19 CDT Bertrand marquez [facility] Procedures Code Procedure Name Date Entry Date Standard Desc ription CPT-36583 Knee comp 4/> V 11:58:06 PERFORATOR OPERATOR
--- NOTE | 2019-11-13 11:34 | Progress Note-Post Operative ---
Post-Operative Progess Note Surgeon (s)/Utility Technician (s) Surgeon VANNA AL MD Utility Technician: ronny messer Pre-Operative Diagnosis Symptomatic Biliary Dyskinesia Post-Operative Diagnosis chronic calculous cholecystitis, incacerated ventral abd incisional hernia Procedure & Operative Findings Date of Procedure 11/13/19 Procedure Performed/Findings lapascopic cholecystectomy and ventral abd incisional hernia repair with mesh. Anesthesia Type get Estimated Blood Loss Estimated blood loss (mL): minimal Specimens/Packing Specimens Removed gallbladder VANNA AL MD Nov 13, 2019 11:34
[2019-11-13] MEDS ORDERED: MEPERIDINE (DEMEROL) INJ 50 MG/ML IVP ONE (12:15)
[2019-11-13] MEDS ORDERED: fentaNYL INJECTION 100 MCG/2 ML AMP IVP ONE (12:15)
[2019-11-13] MEDS ORDERED: morphine INJ 10 MG/ML 1ML (SYR OR VIAL) IVP ONE (12:15)
--- NOTE | 2019-11-13 19:47 | OPERATIVE REPORT ---
DATE OF SERVICE: 11/13/2019 PREOPERATIVE DIAGNOSIS: Symptomatic biliary dyskinesia. POSTOPERATIVE DIAGNOSES: Chronic calculous cholecystitis, incarcerated ventral abdominal incisional hernia. PROCEDURE: Laparoscopic cholecystectomy and incarcerated ventral abdominal incisional hernia repair with mesh. SURGEON: Vanna Al MD SILVERING APPLICATOR: Neno Mccarthy APRN ANESTHESIA: General endotracheal. ESTIMATED BLOOD LOSS: Minimal. FINDINGS: Chronic calculous cholecystitis, incarcerated ventral abdominal incisional hernia. DISPOSITION: The patient tolerated the procedure well. INDICATIONS: The patient is a 58-year-old female who was referred over to us for right upper abdominal quadrant pain on an intermittent basis for the past 15 years; however, has become significantly worse in the past [address] scan did show gallstones. She reports that later on she underwent a HIDA scan, which did show a low ejection fraction of 25% as well. She is also status post Marek-en-Y gastric bypass in 2016. She states that she did lose some weight; however, has gained the vast majority back. DESCRIPTION OF PROCEDURE: The patient was brought to the operating room, laid supine on the table. After adequate IV pain and sedative medications and general endotracheal intubation, the abdomen was prepped and draped in standard surgical fashion. A 0.5% Marcaine with epinephrine was used to anesthetize overlying skin in the left upper abdominal quadrant and a transverse skin incision was made using a 15 blade. An 0 silk suture was applied to the medial aspect of incision for retraction and a Veress needle was inserted with a low opening pressure of 0 mmHg and the abdomen was then insufflated to 15 mmHg pressure. The Veress needle was removed and a 5 mm XL trocar placed followed by a 5 mm 45-degree angle laparoscope visualizing the peritoneal cavity. A 4-quadrant abdominal exploration was performed. There was very thick mesentery and omentum. There was incarcerated ventral abdominal incisional hernia near the umbilicus with omentum within the hernia sac. There was hepatomegaly and a distended gallbladder. Under direct visualization, we then proceeded to place the 10 mm port through the hernia site. This was done after the skin and peritoneal lining were anesthetized using 0.5% Marcaine with epinephrine and a transverse skin incision made using 15 blade. In a similar fashion, a right upper abdominal quadrant 5 mm port was placed. The patient was then placed in steep reverse Trendelenburg position as well as plane right side up, left side down. The fundus of the gallbladder was then retracted anteriorly and superiorly. The hepatoduodenal ligament was then opened using blunt dissection as well as electrocautery on the hook instrument. The entire critical view of safety was identified including the triangle of Calot as well as the cystic duct and artery as the only two structures going into the gallbladder as well as the cystic plate behind the proximal gallbladder. A timeout was then taken and the cystic duct and artery were then clipped proximally, distally and cut with EndoShears. The gallbladder was then dissected off the liver bed using electrocautery on hook instrument with visualization of good hemostasis as well as no leaking ducts of Luschka. The gallbladder was removed through the 10 mm port site using an EndoCatch bag. We then proceeded with repair of the incarcerated ventral abdominal incisional hernia. We could not reduce the contents laparoscopically due to her body habitus and we extended the 10 mm port incision laterally and the hernia sac dissected out and the omentum reduced back into the abdomen. An 8 cm coated polypropylene mesh was then placed into the peritoneal cavity. The mesh was then anchored to the fascia using SecureStrap absorbable tacks with visualization of good hemostasis. This was done in a circumferential manner. The abdomen was desufflated and the remaining ports removed. The skin incisions were closed using 4-0 Monocryl running subcuticular sutures. Wounds were then cleaned and covered with Dermabond. The gallbladder was examined on the back table with multiple stones identified. The patient tolerated the procedure well. We will start IV normal pain medication as well as a clear liquid diet. When she is tolerating clears, has good pain control with oral pain medications, ambulating well, we will discharge her home. She will be instructed to do no heavy lifting or exertion for the next 6 weeks as well. Job ID: [id number] DocumentID: [id number] Dictated Date: 11/13/2019 11:45:15 Finishing Room Operator Date: 11/13/2019 19:47:07 Dictated By: VANNA AL MD
== END 2019-11-13 14:30 | disposition home or self-care (01) ==
LOC: SDC 09:19
PROVIDERS: ATTEND Surgery
DX: K80.10 Calculus of gallbladder with chronic cholecystitis without obstruction (principal); K43.0 Incisional hernia with obstruction, without gangrene; I10 Essential (primary) hypertension; F32.9 Major depressive disorder, single episode, unspecified; F41.9 Anxiety disorder, unspecified; G47.50 Parasomnia, unspecified; J45.909 Unspecified asthma, uncomplicated; K21.9 Gastro-esophageal reflux disease without esophagitis; M06.9 Rheumatoid arthritis, unspecified; E66.01 Morbid (severe) obesity due to excess calories; Z68.42 Body mass index [BMI] 45.0-49.9, adult; Z87.891 Personal history of nicotine dependence; Z79.899 Other long term (current) drug therapy; Z88.2 Allergy status to sulfonamides; Z88.8 Allergy status to other drugs, medicaments and biological substances
CPT/HCPCS: 47562; 49561; 49568; 85025; 87081; C1781; 36415